=== PATIENT | female | born 1945 | race Caucasian/White ===

== ENCOUNTER 2023-02-17 10:01 | Emergency (ER) | payer MEDICARE, SELFPAY ==
[2023-02-17 10:12] VITALS: BP 167/66; PULSE 88; RESP 20; TEMP 36.9; O2SAT 99; BMI 38.2
--- NOTE | 2023-02-17 10:25 | CT_ITS ---
FINAL REPORT CLINICAL HISTORY: 25 lb wt loss, epigastric pn, n/v FINDINGS: Axial images were obtained from the lung apex to the mid abdomen by computed tomography after the administration of IV contrast. Coronal reformatted images were obtained. This study was performed with techniques to keep radiation doses as low as reasonably achievable, (ALARA). Individualized dose reduction techniques using automated exposure control or adjustment of mA and/or kV according to the patient's size were employed. There is no axillary adenopathy. There is no hilar or mediastinal adenopathy. Heart size is normal. There is no pericardial or pleural effusion. There is scarring in the lung bases. No suspicious infiltrate or nodule is identified. IMPRESSION: No suspicious infiltrate or mass. Reviewed, Interpreted and Dictated by Leandro Bey MD Transcribed by Nahid Hill Authenticated and [facility]
--- NOTE | 2023-02-17 10:25 | CT_ITS ---
FINAL REPORT TECHNIQUE: Postcontrast axial images through the abdomen and pelvis were performed. This study was performed with techniques to keep radiation doses as low as reasonably achievable, (ALARA). Individualized dose reduction techniques using automated exposure control or adjustment of mA and/or kV according to the patient's size were employed. CLINICAL HISTORY: 25 lb wt loss, epigastric pn, n/v FINDINGS: Abdomen: There are a multitude of large ill-defined heterogeneous hepatic masses. Masses measure up to 6.7 x 4.5 cm. Masses are seen throughout both lobes of the liver consistent with metastasis. The spleen is unremarkable. The adrenals are normal. The pancreas is unremarkable. The kidneys enhance appropriately. The aorta is normal in caliber. No free fluid or adenopathy is identified. There is abnormal asymmetric mucosal thickening of the ascending colon concerning for underlying mass. Findings are best seen on images 53-57 of series 4. Pelvis: The appendix is not identified. The urinary bladder is decompressed. No free fluid, free air, abscess or adenopathy is identified. IMPRESSION: Multitude of hepatic masses consistent with metastasis. Asymmetric mucosal thickening of the ascending colon concerning for primary neoplasm. Lower endoscopy is highly recommended. Reviewed, Interpreted and Dictated by Leandro Bey MD Transcribed by Nahid Hill Authenticated and [facility]
--- NOTE | 2023-02-17 10:27 | [facility].EDGENADL ---
Discharge Plan Disposition Patient Disposition: Home, Self-Care Prescriptions Prescriptions: New ondansetron 4 mg tablet,disintegrating 4 mg PO Q6H PRN (Reason: nausea and vomiting) 5 Days Qty: 20 0RF Referrals Follow up/Referrals: Luis Matos [Primary Care Provider] - See instructions Activity Restrictions/Add. Instructions Additional Instructions/Restrictions: Please follow-up your primary care doctor with a GI doctor who we made an appointment with today return to the emergency department with any worsening symptoms. There were multiple liver lesions found on your CAT scan and concern in your ascending colon for possible primary colon cancer that is metastatic to the liver. You will need a tissue biopsy to confirm the diagnosis and treatment plan. Clinical Impressions Clinical Impression: Nausea & vomiting, Unintentional weight loss, Night sweats, Cancer, metastatic to liver Discharge ED Provider: Laura Sharif General Adult HPI General Chief complaint: Weakness Stated complaint: vomiting X 2 weeks, can't eat,weak Time Seen by Provider: 02/17/23 10:09 Mode of Arrival: Ambulatory Source of Information: Patient Limitations: No Limitations Description of Symptoms (Recalled from ER Triage Doc. by RN): pt to ed c/o decreased appetite, generalized weakness and vomiting. pt denies urinary symptoms. pt reports mild chills. History of Present Illness HPI narrative: Patient is a 77-year-old female with a history of 5 months of unintentional weight loss nausea and vomiting that is been intermittent and now 1 to 2 months of night sweats. She has not had a colonoscopy in the past denies any hematochezia or melena. Denies any urinary symptoms no frequency urgency dysuria etc. Denies any vaginal bleeding vaginal discharge. Denies any respiratory symptoms. States she is able to swallow but that everything that she eats over the last several months she just throws up. She has not had any significant fevers. She states she does not go to the doctor regularly. She has an aversion to healthcare systems because her 9 years ago after being admitted for what she thought was a routine procedure. Therefore she is very hesitant to come to the hospital. She has had some mild epigastric and periumbilical abdominal discomfort nothing has been severe. Related Data Previous Rx's Medication Instructions Recorded ondansetron 4 mg disintegrating 4 mg PO Q6H PRN nausea and 02/17/23 tablet vomiting 5 days #20 tabs Allergies Allergy/AdvReac Type Severity Reaction Status Date / Time tetracycline Allergy Verified 02/17/23 10:37 [facility] Disclaimer: The information contained in this section may have been updated after the patient was seen, as this information can be updated by other users. Social History Smoking Status: Never smoker alcohol intake: never current occupational status: other Travel in the last 8 weeks: None ROS Obtained: Yes All systems reviewed & no additional complaints except as documented Physical Exam General General appearance: alert and in no apparent distress Respiratory Respiratory exam: Present normal lung sounds bilaterally; Absent respiratory distress or wheezes Cardiovascular Cardiovascular exam: Present regular rate and normal rhythm; Absent tachycardia Abdominal Exam Abdominal exam: Present soft and tenderness (Epigastric and periumbilical with deep palpation no rebound or guarding no masses felt) Neurological Exam Neurological exam: Present alert Medical Decision Making [place] Inquiry Pt receiving controlled substance: No Vital Signs: 02/17/23 10:12 Temperature 98.5 F Temperature Source Oral Pulse Rate [Left Radial] 88 Respiratory Rate 20 Blood Pressure [Right Arm] 167/66 H Blood Pressure Mean [Right Arm] 99 02 Sat by Pulse Oximetry 99 Oxygen Delivery Method Room Air Lab Data Lab results reviewed: Yes I reviewed the patient's lab results.
[2023-02-17 10:32] LABS: Microscopic, Urine URINE MICROSCOPIC (MICROSCOPIC)
[2023-02-17 10:34] LABS: Blood, Urine TRACE-I (Negative); Color,Urine YELLOW (Yellow); Glucose,Urine (UA) Negative (Negative); Ketones,Urine TRACE (Negative); Leukocyte Esterase,Urine 1+ (Negative); Nitrate,Urine POSITIVE (Negative); Protein,Urine 1+ (Negative); Specific Gravity, Urine 1.025 (1.005-1.030); Urobilinogen,Urine >=8.0 EU/dl (0.2)
[2023-02-17 10:37] LABS: Bilirubin,Urine 1+ (Negative)
[2023-02-17 10:40] LABS: Appearance,Urine Slightly Cloudy (Clear)
--- NOTE | 2023-02-17 10:53 | ECG_ITS ---
APPROVED REPORT Exam: Resting ECG HR:68 bpm ECG Measurements Heart Rate 68 AXES AL 177 P 79 QRSd 107 QRS 15 QT 382 T 33 QTc 400 Conclusion SINUS RHYTHM LOW QRS VOLTAGE IN PRECORDIAL LEADS [QRS DEFLECTION < 1.0 mV IN CHEST LEADS] BORDERLINE ECG UNCONFIRMED REPORT Electronically signed by : Rakesh Gabriel MD 02/17/2023 19:56:27
[2023-02-17 10:58] LABS: Coronavirus 19, PCR Not Detected (NotDetected); Influenza A, PCR Not Detected (NotDetected); Influenza B, PCR Not Detected (NotDetected)
[2023-02-17 11:01] LABS: Chloride 102 mmol/L (98-107)
[2023-02-17 11:02] LABS: Potassium 3.2 mmoL/L (3.5-5.1); Sodium 136 mmol/L (136-145)
[2023-02-17 11:03] LABS: Bacteria,Urine 4+ /lpf; RBC,Urine Occasional #/hpf (0-3); WBC,Urine TNTC #/hpf (0-3)
[2023-02-17 11:04] LABS: Alanine Aminotransferase 20 U/L (12-78); Anion Gap 11.2 mEq/L (5-15); Aspartate Amino Transferase 46 U/L (14-36); Blood Urea Nitrogen 12 mg/dl (7-17); Carbon Dioxide 26 mmol/L (22.0-30.0); Creatinine Clearance Estimated 75 mL/min (50-200); Estimated Glomerular Filt Rate 70 ml/min (>60); GFR (African American) 85 ML/MIN (>60)
[2023-02-17 11:05] LABS: Albumin Level 3.4 g/dl (3.5-5.0); Alkaline Phosphatase 157 U/L (38-126); Bilirubin,Total 1.2 mg/dl (0.2-1.3); Calcium 8.4 mg/dl (8.4-10.2); Globulin 3.3 g/dL (1.3-3.2); Glucose 142 mg/dl (74-100); Lactate Dehydrogenase > 1000 U/L (313-618); Magnesium 1.9 mg/dl (1.6-2.3); Phosphorous 3.4 mg/dl (2.5-4.5); Total Protein,Serum 6.7 g/dl (6.3-8.2); Uric Acid 4.9 mg/dl (2.5-6.2)
[2023-02-17 11:25] LABS: Troponin I < 0.01 ng/ml (0.00-0.034)
[2023-02-17 11:31] LABS: Basophils % 0.1 % (0.1-2.0); Eosinophils # 0.2 K/mm3 (0.0-0.4); Eosinophils % 1.9 % (0.1-12.0); Hematocrit 26.7 % (37.0-47.0); Lymphocytes # 0.9 K/mm3 (0.7-4.5); Lymphocytes % 9.7 % (10-50); Mean Corpuscular HGB Conc 29.8 g/dL (31.8-35.4); Mean Corpuscular Hemoglobin 19.1 pg (27.0-31.2); Monocytes # 0.8 K/mm3 (0.1-1.0); Monocytes % 7.9 % (1.7-9.3); Neutrophils # 7.8 K/mm3 (1.8-7.8); Neutrophils % 80.3 % (37.0-80.0); Platelet Count 515 K/mm3 (142-424); Red Blood Count 4.17 M/mm3 (4.20-5.40); Red Cell Distribution Width 17.9 % (11.5-17.5); White Blood Count 9.7 K/mm3 (4.8-10.8)
[2023-02-17 11:36] LABS: Thyroid Stimulating Hormone 3.06 uIU/mL (0.465-4.68)
--- NOTE | 2023-02-17 13:41 | PC.NURSE ---
Dr. Sharif at [facility]
[2023-02-17 14:25] VITALS: BP 161/84; PULSE 84; RESP 20; TEMP 36.9; O2SAT 99
--- NOTE | 2023-02-20 09:04 | PC.NURSE ---
fu with pt per MD Sharif about urine culture, Pt denies any urinary symptoms, states yesterday she felt good but today she feels weak but her fu with the doctor yesterday to do her colonoscopy said that her hemoglobin was 8 so he thought it was due to her anemia, denies any drainage, itching, burning or other urinary symptoms, states at this time there is no further interventions at this time due and it is believed that culture was colonization vs infection. Pt is encouraged that if anything changes to fu with primary care doctor
== END 2023-02-17 14:26 | disposition home or self-care (01) ==
LOC: ER 10:52
PROVIDERS: Emergency Provider Student in an Organized Health Care Education/Training Program; PCP Internal Medicine Cardiovascular Disease
DX: R11.10 Vomiting, unspecified (principal); R10.33 Periumbilical pain; R53.1 Weakness; R63.0 Anorexia; C78.7 Secondary malignant neoplasm of liver and intrahepatic bile duct
CPT/HCPCS: 71260; 74177; 80053; 81001; 83615; 83735; 84100; 84443; 84484; 84550; 85025; 87086; 87088; 87186; 87636; 93005; 96361; 96374; 99285; J2405; Q9967

== ENCOUNTER 2024-06-23 10:58 | Emergency (ER) | payer MEDICARE, SELFPAY ==
[2024-06-23] VITALS (8 sets, daily range): BP systolic 126–193; BP diastolic 74–104; PULSE 68–79; RESP 12–23; TEMP 36.6–36.8; O2SAT 96–100; BMI 36.8
--- NOTE | 2024-06-23 10:52 | ECG_ITS ---
APPROVED REPORT Exam: Resting ECG HR:72 bpm ECG Measurements Heart Rate 72 AXES LA 168 P 79 QRSd 94 QRS 11 QT 376 T 47 QTc 400 Conclusion SINUS RHYTHM WITH OCCASIONAL VENTRICULAR PREMATURE COMPLEXES BORDERLINE ECG No STEMI Electronically signed by : JIMY SINCLAIR, 06/26/2024 06:46:41
--- NOTE | 2024-06-23 11:00 | HMH.EDGENADL ---
Discharge Plan Disposition Patient Disposition: Home, Self-Care Condition: Good Prescriptions Prescriptions: No Action ondansetron 4 mg tablet,disintegrating 4 mg PO Q6H PRN (Reason: nausea and vomiting) 5 Days Qty: 20 0RF Referrals Follow up/Referrals: Elie Scott [Primary Care Provider] - See instructions Sriram Vasquez MD [Staff Physician] - See instructions Activity Restrictions/Add. Instructions Additional Instructions/Restrictions: As we discussed please come to cardiology clinic when they open tomorrow. Also as we discussed do not take your Coumadin until Thursday and then start taking only the 2.5 Thursday and Thursday. The INR clinic will contact you on Thursday to establish the next plan. Return to the ER if you have any worsening signs or symptoms as needed. Clinical Impressions Clinical Impression: Supratherapeutic INR Acute exacerbation of CHF (congestive heart failure) Qualifiers: Heart failure type: unspecified Qualified Code(s): I50.9 - Heart failure, unspecified Print Language Print Language: Kyrgyz Discharge ED Provider: Elmer Parada General Adult HPI <Daljit Issa MD - Last Filed: 06/23/24 11:00> General Chief complaint: Shortness of Breath/Dyspnea Stated complaint: SOA Time Seen by Provider: 06/23/24 10:59 History of Present Illness HPI narrative: Please note that above description of symptoms, in this electronic medical record under categorization of recalled from ER triage doctor by RN are reflective of an initial nursing assessment, however, is not reflective of my full history and physical exam that was personally taken and clarified. Consequentially, this preceding description of symptoms, which may include the patient's categorized chief complaint in the EMR, do not reflect my personal clinical impression, and the ultimate description of history of present illness and patient stated complaints should be deferred to this section of the note. Unless stated otherwise or congruent with this section of the note, additional signs, symptoms, or incongruence should be interpreted as inaccurate with my clinical impression. Related Data Previous Rx's ?Medication ?Instructions ?Recorded ondansetron 4 mg disintegrating 4 mg PO Q6H PRN nausea and 02/17/23 tablet vomiting 5 days #20 tabs Allergies Allergy/AdvReac Type Severity Reaction Status Date / Time tetracycline Allergy Verified 02/17/23 10:37 <GREGORY Pike - Last Filed: 06/23/24 22:33> History of Present Illness HPI narrative: Patient presents for evaluation of shortness of breath and chest pain. Patient has a past medical history of cancer currently undergoing treatment for metastatic liver cancer. She recently had admission in [facility] which she was noted to be uroseptic but also in A-fib RVR. She was discharged with Coumadin which she has been taking and has been home for about a week. She states that she began feeling significantly short of breath with back pain starting today. She denies any fever chills hemoptysis hematochezia melena nausea vomiting diarrhea. Additionally patient states that she took a water pill that she had from previous but is not currently prescribed that. Reports that she has been taking 7 and half milligrams of Coumadin daily at the request of her PCP. Please note that above description of symptoms, in this electronic medical record under categorization of recalled from ER triage doctor by RN are reflective of an initial nursing assessment, however, is not reflective of my full history and physical exam that was personally taken and clarified. Consequentially, this preceding description of symptoms, which may include the patient's categorized chief complaint in the EMR, do not reflect my personal clinical impression, and the ultimate description of history of present illness and patient stated complaints should be deferred to this section of the note. Unless stated otherwise or congruent with this section of the note, additional signs, symptoms, or incongruence should be interpreted as inaccurate with my clinical impression. [facility] <Daljit Issa MD - Last Filed: 06/23/24 11:00> [facility] Disclaimer: The information contained in this section may have been updated after the patient was seen, as this information can be updated by other users. Social History (Updated 02/17/23 @ 13:46 by Laura Sharif MD) Smoking Status: Never smoker alcohol intake: never current occupational status: other Travel in the last 8 weeks: None Have you lived/traveled outside [place] in past 30 days?: No Contact w/someone who lives/traveled outside US past 30 days?: No Exposure to someone with infectious disease in past 14 days?: No Do you have a fever (greater than 100.4 F or 38 C)?: No Have you tested positive for COVID-19: No Exposed to someone with COVID-19 in past 14 days?: No Do you have a sore throat?: No Do you have a cough?: No Do you have any weakness?: Yes Do you have any diarrhea?: No Are you experiencing any unusual bleeding?: No Do you have any muscle aches/pain?: No Do you have any abdominal pain?: No Are you experiencing loss of taste or smell?: No <Daljit Issa MD - Last Filed: 06/23/24 11:00> ROS Obtained: Yes other As per HPI <GREGORY Pike - Last Filed: 06/23/24 22:33> ROS Obtained: Yes Systems reviewed as appropriate & no additional complaints except as documented Physical Exam <Daljit Issa MD - Last Filed: 06/23/24 11:00> General General appearance: alert and in no apparent distress Head Head exam: atraumatic and normocephalic Eye Eye exam: Present normal appearance Neck Neck exam: Present normal inspection Chest Chest inspection: Present normal inspection and symmetric chest wall rise Respiratory Respiratory exam: Present normal lung sounds bilaterally; Absent respiratory distress Cardiovascular Cardiovascular exam: Present regular rate and normal rhythm Abdominal Exam Abdominal exam: Present soft Neurological Exam Neurological exam: Present alert and oriented X3 Psychiatric Psychiatric exam: Present normal affect and normal mood Skin Skin exam: Present warm and dry <GREGORY Pike - Last Filed: 06/23/24 22:33> General General appearance: alert Respiratory Respiratory exam: Present normal lung sounds bilaterally (End expiratory wheezes) Neurological Exam Neurological exam: Present alert and oriented X3 Medical Decision Making <Daljit Issa MD - Last Filed: 06/23/24 11:00> Medical Records Medical records reviewed: Yes I reviewed the patient's medical records. Screening: Per USPSTF and CDC recommendations, given the prevalence of disease in our region, it is our hospital?s policy to screen for HIV and viral Hepatitis for all patients aged 18 and over and those with ongoing risk factors. [place] Inquiry Pt receiving controlled substance: No Vital Signs: 06/23/24 10:55 06/23/24 11:00 06/23/24 12:36 Temperature 97.8 F Temperature Source Oral Pulse Rate 68 68 Pulse Rate [Right] 72 Respiratory Rate 20 12 23 Blood Pressure 193/104 H 132/78 Blood Pressure [Right Arm] 193/104 H Blood Pressure Mean [Right Arm] 133 Blood Pressure Source Blood Pressure Position 02 Sat by Pulse Oximetry 98 96 100 Oxygen Delivery Method Room Air Room Air Room Air 06/23/24 13:00 06/23/24 13:30 06/23/24 14:00 Temperature Temperature Source Pulse Rate 73 76 77 Pulse Rate [Right] Respiratory Rate Blood Pressure 126/94 H 152/74 H Blood Pressure [Right Arm] Blood Pressure Mean [Right Arm] Blood Pressure Source Blood Pressure Position 02 Sat by Pulse Oximetry 96 98 100 Oxygen Delivery Method Room Air Room Air 06/23/24 14:30 06/23/24 17:05 Temperature 98.2 F Temperature Source Oral Pulse Rate 79 74 Pulse Rate [Right] Respiratory Rate 16 Blood Pressure 154/86 H Blood Pressure [Right Arm] Blood Pressure Mean [Right Arm] Blood Pressure Source Automatic Cuff Blood Pressure Position Sitting 02 Sat by Pulse Oximetry 97 Oxygen Delivery Method Room Air Room Air Lab Data Lab Results 06/23/24 11:15: WBC 10.8, RBC 3.83 L, Hgb 11.4 L, Hct 34.7 L, MCV 90.6, MCH 29.8, MCHC 32.9, RDW 16.3, Plt Count 316, MPV 9.3, Neut % (Auto) 75.0, Lymph % (Auto) 12.1, [place] % (Auto) 7.1, Eos % (Auto) 4.9, Baso % (Auto) 0.6, Neut # (Auto) 8.1 H, Lymph # (Auto) 1.3, [place] # (Auto) 0.8, Eos # (Auto) 0.5 H, Baso # (Auto) 0.1, PT > 90.0 H, INR > 8.00 H, D-Dimer 1.53 H, Sodium 138, Potassium 3.8, Chloride 99, Carbon Dioxide 31 H, Anion Gap 11.8, BUN 12, Creatinine 0.70, Estimated Creat Clear 74, Estimated GFR 81, Est GFR ( Amer) 98, Glucose 115 H, Calcium 9.4, Magnesium 2.0, Total Bilirubin 0.6, AST 51 H, ALT 24, Alkaline Phosphatase 224 H, Troponin I < 0.01, NT-Pro-B Natriuret Pep 4490 H 06/23/24 11:15: NT-Pro-B Natriuret Pep 4470 H, Total Protein 7.1, Albumin 3.8, Globulin 3.3 H, Albumin/Globulin Ratio 1.2, Procalcitonin 0.176, SARS-CoV-2 (PCR) Not detected 06/23/24 11:15: SARS-CoV-2 (PCR) Not detected, HCV Ab TREV w/Rflx PCR Qn Negative, HIV Ag/Ab Combo Qual Negative, Influenza Type A (PCR) Not detected, Influenza A Untype (PCR) Not detected, Influenza Type B (PCR) Not detected 06/23/24 11:15: Influenza Type B (PCR) Not detected, RSV (PCR) Not detected, Rhinovirus (PCR) Not detected 06/23/24 11:15 06/23/24 11:15 Orders (Tests/Meds): ED MEDICATIONS Discontinued Medications Generic Name Dose Route Start Last Admin Trade Name Freq PRN Reason Stop Dose Admin Furosemide 80 mg 06/23/24 12:54 06/23/24 13:09 Furosemide 40mg/4ml Vial IV 06/23/24 12:55 80 mg ONCE ONE Administration Heparin Sodium (Porcine) 300 unit 06/23/24 16:56 06/23/24 17:04 Heparin Lock Flush 500 Units/5ml Syr IV 06/23/24 16:57 5 ml ONCE ONE Administration Hydromorphone HCl 0.5 mg 06/23/24 16:44 06/23/24 17:03 Hydromorphone 2mg/Ml Syringe IV 06/23/24 16:45 0.5 mg ONCE ONE Administration ORDERS Category Date Time Status XR chest 2V Stat Exams 06/23/24 11:04 Completed BNP [NT Pro Brain Natriuretic Pep.] Stat Lab 06/23/24 11:15 Completed BNP [NT Pro Brain Natriuretic Pep.] Stat Lab 06/23/24 11:15 Completed CBC w/Auto Diff [Complete Blood Count Auto Diff] Stat Lab 06/23/24 11:15 Completed CMP [Comprehensive Metabolic Panel] Stat Lab 06/23/24 11:15 Completed D-Dimer Stat Lab 06/23/24 11:15 Completed HIV Combo Stat Lab 06/23/24 11:15 Completed Hepatitis C Ab Qual. W/ RFX Stat Lab 06/23/24 11:15 Completed INR [Prothrombin Time INR] Stat Lab 06/23/24 11:15 Completed Magnesium Stat Lab 06/23/24 11:15 Completed Mini Respiratory Panel Stat Lab 06/23/24 11:15 Completed Procalcitonin Stat Lab 06/23/24 11:15 Completed Rapid PCR Covid and Flu A/B Stat Lab 06/23/24 11:15 Completed Troponin I Q3H Lab 06/23/24 11:15 Completed CA echo doppler complete Stat Y 06/23/24 12:56 Completed Medical Decision Narrative: Patient with history and exam per above presenting for evaluation of Diagnoses considered include ED workup and treatment included: Labs were independently interpreted by me, significant for Imaging was independently visualized and interpreted by me, significant for Please refer to radiology report for full details. My clinical impression at this time is most consistent with I discussed my clinical impression with patient and answered all questions. At this time, the evidence for any other entities in the differential is insufficient to warrant any further testing or ED observation. This was explained to the patient. The patient was advised that persistent or worsening symptoms require further evaluation. <Elmer Parada MD - Last Filed: 06/23/24 23:07> Vital Signs: 06/23/24 10:55 06/23/24 11:00 06/23/24 12:36 Temperature 97.8 F Temperature Source Oral Pulse Rate 68 68 Pulse Rate [Right] 72 Respiratory Rate 20 12 23 Blood Pressure 193/104 H 132/78 Blood Pressure [Right Arm] 193/104 H Blood Pressure Mean [Right Arm] 133 Blood Pressure Source Blood Pressure Position 02 Sat by Pulse Oximetry 98 96 100 Oxygen Delivery Method Room Air Room Air Room Air 06/23/24 13:00 06/23/24 13:30 06/23/24 14:00 Temperature Temperature Source Pulse Rate 73 76 77 Pulse Rate [Right] Respiratory Rate Blood Pressure 126/94 H 152/74 H Blood Pressure [Right Arm] Blood Pressure Mean [Right Arm] Blood Pressure Source Blood Pressure Position 02 Sat by Pulse Oximetry 96 98 100 Oxygen Delivery Method Room Air Room Air 06/23/24 14:30 06/23/24 17:05 Temperature 98.2 F Temperature Source Oral Pulse Rate 79 74 Pulse Rate [Right] Respiratory Rate 16 Blood Pressure 154/86 H Blood Pressure [Right Arm] Blood Pressure Mean [Right Arm] Blood Pressure Source Automatic Cuff Blood Pressure Position Sitting 02 Sat by Pulse Oximetry 97 Oxygen Delivery Method Room Air Room Air Lab Data Lab Results 06/23/24 11:15: WBC 10.8, RBC 3.83 L, Hgb 11.4 L, Hct 34.7 L, MCV 90.6, MCH 29.8, MCHC 32.9, RDW 16.3, Plt Count 316, MPV 9.3, Neut % (Auto) 75.0, Lymph % (Auto) 12.1, [place] % (Auto) 7.1, Eos % (Auto) 4.9, Baso % (Auto) 0.6, Neut # (Auto) 8.1 H, Lymph # (Auto) 1.3, [place] # (Auto) 0.8, Eos # (Auto) 0.5 H, Baso # (Auto) 0.1, PT > 90.0 H, INR > 8.00 H, D-Dimer 1.53 H, Sodium 138, Potassium 3.8, Chloride 99, Carbon Dioxide 31 H, Anion Gap 11.8, BUN 12, Creatinine 0.70, Estimated Creat Clear 74, Estimated GFR 81, Est GFR ( Amer) 98, Glucose 115 H, Calcium 9.4, Magnesium 2.0, Total Bilirubin 0.6, AST 51 H, ALT 24, Alkaline Phosphatase 224 H, Troponin I < 0.01, NT-Pro-B Natriuret Pep 4490 H 06/23/24 11:15: NT-Pro-B Natriuret Pep 4470 H, Total Protein 7.1, Albumin 3.8, Globulin 3.3 H, Albumin/Globulin Ratio 1.2, Procalcitonin 0.176, SARS-CoV-2 (PCR) Not detected 06/23/24 11:15: SARS-CoV-2 (PCR) Not detected, HCV Ab TREV w/Rflx PCR Qn Negative, HIV Ag/Ab Combo Qual Negative, Influenza Type A (PCR) Not detected, Influenza A Untype (PCR) Not detected, Influenza Type B (PCR) Not detected 06/23/24 11:15: Influenza Type B (PCR) Not detected, RSV (PCR) Not detected, Rhinovirus (PCR) Not detected Orders (Tests/Meds): ED MEDICATIONS Discontinued Medications Generic Name Dose Route Start Last Admin Trade Name Freq PRN Reason Stop Dose Admin Furosemide 80 mg 06/23/24 12:54 06/23/24 13:09 Furosemide 40mg/4ml Vial IV 06/23/24 12:55 80 mg ONCE ONE Administration Heparin Sodium (Porcine) 300 unit 06/23/24 16:56 06/23/24 17:04 Heparin Lock Flush 500 Units/5ml Syr IV 06/23/24 16:57 5 ml ONCE ONE Administration Hydromorphone HCl 0.5 mg 06/23/24 16:44 06/23/24 17:03 Hydromorphone 2mg/Ml Syringe IV 06/23/24 16:45 0.5 mg ONCE ONE Administration ORDERS Category Date Time Status XR chest 2V Stat Exams 06/23/24 11:04 Completed BNP [NT Pro Brain Natriuretic Pep.] Stat Lab 06/23/24 11:15 Completed BNP [NT Pro Brain Natriuretic Pep.] Stat Lab 06/23/24 11:15 Completed CBC w/Auto Diff [Complete Blood Count Auto Diff] Stat Lab 06/23/24 11:15 Completed CMP [Comprehensive Metabolic Panel] Stat Lab 06/23/24 11:15 Completed D-Dimer Stat Lab 06/23/24 11:15 Completed HIV Combo Stat Lab 06/23/24 11:15 Completed Hepatitis C Ab Qual. W/ RFX Stat Lab 06/23/24 11:15 Completed INR [Prothrombin Time INR] Stat Lab 06/23/24 11:15 Completed Magnesium Stat Lab 06/23/24 11:15 Completed Mini Respiratory Panel Stat Lab 06/23/24 11:15 Completed Procalcitonin Stat Lab 06/23/24 11:15 Completed Rapid PCR Covid and Flu A/B Stat Lab 06/23/24 11:15 Completed Troponin I Q3H Lab 06/23/24 11:15 Completed CA echo doppler complete Stat Y 06/23/24 12:56 Completed HEART Score HEART Score: 5 Medical Decision Narrative: In summary patient is a 78-year-old female who presents to the emergency department for evaluation of dyspnea and chest pain. Patient is initially hypertensive at 193/104 with a pulse of 72 with normal sinus rhythm on bedside monitor breathing 20 times a minute satting at 98% on room air upon arrival, afebrile. Physical exam is remarkable for slight end expiratory wheezes in all 4 nguyen with no accessory muscle use. Heart sounds are normal patient is normal sinus rhythm on bedside monitor patient has no dependent edema noted. Abdomen is soft without tenderness rebound or guarding or rigidity. Normal bowel sounds.. Differential diagnosis includes ACS versus PE versus pneumonia versus heart failure etc. Initial workup will be conducted with hematologic labs respiratory panel chest x-ray and. Initial interventions include DuoNeb Decadron and Lasix. Initial workup reviewed by me shows a white count of 10.8 hemoglobin hematocrit 11.4 and 34.7 respectively with no shift, INR is greater than 8 D-dimer is 1.53 and given that PE unlikely as she is supratherapeutic, NT proBNP is elevated at 4470 with no known baseline, the remainder of her hematologic labs are nonactionable including a troponin less than 0.01. Respiratory panel is negative for all organisms tested and my informal interpretation of her chest x-ray shows pulmonary edema prior to radiology read. Upon repeat evaluation patient reports significant subjective improvement including decreased work of breathing no chest pain no shortness of breath. Given that her chest pain has been going on for more than 8 hours single troponin was done. Regarding her supratherapeutic and INR we have contacted the Coumadin clinic and she will hold her Coumadin for 48 hours and restart at 2.5 on Thursday and Thursday and will be followed by the Coumadin clinic directly. Coumadin clinic given her contact 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 Patient given strict return precautions. Patient no evidence of bleeding or other abnormalities including petechiae.. Given this patient is appropriate for discharge with strict return precautions. I independently examined and interviewed patient. I was consulted by the KYLIE, and we discussed the complexity of the problems being addressed. I approved the treatment and management plan for this patient's care in the Emergency Department, thus performing a substantive portion of the medical decision making. I also spoke to pharmacist regarding patient's elevated INR. Recommended holding for 48 hours, 2.5 mg the next 2 days, then following up on Thursday with cardiology as well as with pharmacy for further Coumadin management. This was relayed to patient. Because patient at baseline without signs or symptoms of clinical decompensation, deemed appropriate for discharge. Results were relayed to patient who voiced understanding and were agreeable to outpatient management and follow up. I discussed my clinical impression with patient and answered all questions. At this time, the evidence for any other entities in the differential is insufficient to warrant any further testing or ED observation. This was explained as well. Advisory was given that persistent or worsening symptoms require further evaluation. I confirmed the understanding of this discussion. Elmer Parada MD <GREGORY Pike - Last Filed: 06/23/24 22:33> Vital Signs: 06/23/24 10:55 06/23/24 11:00 06/23/24 12:36 Temperature 97.8 F Temperature Source Oral Pulse Rate 68 68 Pulse Rate [Right] 72 Respiratory Rate 20 12 23 Blood Pressure 193/104 H 132/78 Blood Pressure [Right Arm] 193/104 H Blood Pressure Mean [Right Arm] 133 Blood Pressure Source Blood Pressure Position 02 Sat by Pulse Oximetry 98 96 100 Oxygen Delivery Method Room Air Room Air Room Air 06/23/24 13:00 06/23/24 13:30 06/23/24 14:00 Temperature Temperature Source Pulse Rate 73 76 77 Pulse Rate [Right] Respiratory Rate Blood Pressure 126/94 H 152/74 H Blood Pressure [Right Arm] Blood Pressure Mean [Right Arm] Blood Pressure Source Blood Pressure Position 02 Sat by Pulse Oximetry 96 98 100 Oxygen Delivery Method Room Air Room Air 06/23/24 14:30 06/23/24 17:05 Temperature 98.2 F Temperature Source Oral Pulse Rate 79 74 Pulse Rate [Right] Respiratory Rate 16 Blood Pressure 154/86 H Blood Pressure [Right Arm] Blood Pressure Mean [Right Arm] Blood Pressure Source Automatic Cuff Blood Pressure Position Sitting 02 Sat by Pulse Oximetry 97 Oxygen Delivery Method Room Air Room Air Lab Data Lab results reviewed: Yes I reviewed the patient's lab results. Lab Results 06/23/24 11:15: WBC 10.8, RBC 3.83 L, Hgb 11.4 L, Hct 34.7 L, MCV 90.6, MCH 29.8, MCHC 32.9, RDW 16.3, Plt Count 316, MPV 9.3, Neut % (Auto) 75.0, Lymph % (Auto) 12.1, [place] % (Auto) 7.1, Eos % (Auto) 4.9, Baso % (Auto) 0.6, Neut # (Auto) 8.1 H, Lymph # (Auto) 1.3, [place] # (Auto) 0.8, Eos # (Auto) 0.5 H, Baso # (Auto) 0.1, PT > 90.0 H, INR > 8.00 H, D-Dimer 1.53 H, Sodium 138, Potassium 3.8, Chloride 99, Carbon Dioxide 31 H, Anion Gap 11.8, BUN 12, Creatinine 0.70, Estimated Creat Clear 74, Estimated GFR 81, Est GFR ( Amer) 98, Glucose 115 H, Calcium 9.4, Magnesium 2.0, Total Bilirubin 0.6, AST 51 H, ALT 24, Alkaline Phosphatase 224 H, Troponin I < 0.01, NT-Pro-B Natriuret Pep 4490 H 06/23/24 11:15: NT-Pro-B Natriuret Pep 4470 H, Total Protein 7.1, Albumin 3.8, Globulin 3.3 H, Albumin/Globulin Ratio 1.2, Procalcitonin 0.176, SARS-CoV-2 (PCR) Not detected 06/23/24 11:15: SARS-CoV-2 (PCR) Not detected, HCV Ab TREV w/Rflx PCR Qn Negative, HIV Ag/Ab Combo Qual Negative, Influenza Type A (PCR) Not detected, Influenza A Untype (PCR) Not detected, Influenza Type B (PCR) Not detected 06/23/24 11:15: Influenza Type B (PCR) Not detected, RSV (PCR) Not detected, Rhinovirus (PCR) Not detected Orders (Tests/Meds): ED MEDICATIONS Discontinued Medications Generic Name Dose Route Start Last Admin Trade Name Freq PRN Reason Stop Dose Admin Furosemide 80 mg 06/23/24 12:54 06/23/24 13:09 Furosemide 40mg/4ml Vial IV 06/23/24 12:55 80 mg ONCE ONE Administration Heparin Sodium (Porcine) 300 unit 06/23/24 16:56 06/23/24 17:04 Heparin Lock Flush 500 Units/5ml Syr IV 06/23/24 16:57 5 ml ONCE ONE Administration Hydromorphone HCl 0.5 mg 06/23/24 16:44 06/23/24 17:03 Hydromorphone 2mg/Ml Syringe IV 06/23/24 16:45 0.5 mg ONCE ONE Administration ORDERS Category Date Time Status XR chest 2V Stat Exams 06/23/24 11:04 Completed BNP [NT Pro Brain Natriuretic Pep.] Stat Lab 06/23/24 11:15 Completed BNP [NT Pro Brain Natriuretic Pep.] Stat Lab 06/23/24 11:15 Completed CBC w/Auto Diff [Complete Blood Count Auto Diff] Stat Lab 06/23/24 11:15 Completed CMP [Comprehensive Metabolic Panel] Stat Lab 06/23/24 11:15 Completed D-Dimer Stat Lab 06/23/24 11:15 Completed HIV Combo Stat Lab 06/23/24 11:15 Completed Hepatitis C Ab Qual. W/ RFX Stat Lab 06/23/24 11:15 Completed INR [Prothrombin Time INR] Stat Lab 06/23/24 11:15 Completed Magnesium Stat Lab 06/23/24 11:15 Completed Mini Respiratory Panel Stat Lab 06/23/24 11:15 Completed Procalcitonin Stat Lab 06/23/24 11:15 Completed Rapid PCR Covid and Flu A/B Stat Lab 06/23/24 11:15 Completed Troponin I Q3H Lab 06/23/24 11:15 Completed CA echo doppler complete Stat Y 06/23/24 12:56 Completed HEART Score History (anamnesis): Slightly suspicious ECG: Non-specific disturbance Age: >65 years Risk factors: Atherosclerosis history Troponin: </= normal limit HEART Score: 5 Medical Decision Narrative: In summary patient is a 78-year-old female who presents to the emergency department for evaluation of dyspnea and chest pain. Patient is initially hypertensive at 193/104 with a pulse of 72 with normal sinus rhythm on bedside monitor breathing 20 times a minute satting at 98% on room air upon arrival, afebrile. Physical exam is remarkable for slight end expiratory wheezes in all 4 nguyen with no accessory muscle use. Heart sounds are normal patient is normal sinus rhythm on bedside monitor patient has no dependent edema noted. Abdomen is soft without tenderness rebound or guarding or rigidity. Normal bowel sounds.. Differential diagnosis includes ACS versus PE versus pneumonia versus heart failure etc. Initial workup will be conducted with hematologic labs respiratory panel chest x-ray and. Initial interventions include DuoNeb Decadron and Lasix. Initial workup reviewed by me shows a white count of 10.8 hemoglobin hematocrit 11.4 and 34.7 respectively with no shift, INR is greater than 8 D-dimer is 1.53 and given that PE unlikely as she is supratherapeutic, NT proBNP is elevated at 4470 with no known baseline, the remainder of her hematologic labs are nonactionable including a troponin less than 0.01. Respiratory panel is negative for all organisms tested and my informal interpretation of her chest x-ray shows pulmonary edema prior to radiology read. Upon repeat evaluation patient reports significant subjective improvement including decreased work of breathing no chest pain no shortness of breath. Given that her chest pain has been going on for more than 8 hours single troponin was done. Regarding her supratherapeutic and INR we have contacted the Coumadin clinic and she will hold her Coumadin for 48 hours and restart at 2.5 on Thursday and Thursday and will be followed by the Coumadin clinic directly. Coumadin clinic given her contact 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 Patient given strict return precautions. Patient no evidence of bleeding or other abnormalities including petechiae.. Given this patient is appropriate for discharge with strict return precautions. Critical Care <Daljit Issa MD - Last Filed: 06/23/24 11:00> Critical Care Time Critical Care Time: No <GREGORY Pike - Last Filed: 06/23/24 22:33> Critical Care Time Critical Care Time: Yes Attestation: On 06/23/24, the high probability of a clinically significant, sudden or life threatening deterioration of the following system hematologic, required my full and direct attention, intervention and personal management. The time I documented below is in addition to time spent performing reported procedures but includes the following listed in this critical care notation. Total Time Total Critical Care Time: 35
--- NOTE | 2024-06-23 11:04 | XR_ITS ---
FINAL REPORT TECHNIQUE: Chest PA & Lateral CLINICAL HISTORY: Shortness of breath COMPARISON: None FINDINGS: 2 views of the chest were performed. The heart size is normal. Right chest port is present with the tip in the SVC. The mediastinum is within normal limits. There is no acute cardiopulmonary process. Mild chronic changes are seen in both lungs. There are no pleural effusions. There is no pneumothorax. The bony thorax appears intact. IMPRESSION: Chronic lung changes without acute cardiopulmonary process. Reviewed, Interpreted and Dictated by Leandro Bey MD Transcribed by Naila Maldonado Authenticated and [facility]
[2024-06-23 11:22] LABS: Coronavirus 19, PCR Not Detected (NotDetected); Influenza A, PCR Not Detected (NotDetected); Influenza B, PCR Not Detected (NotDetected)
[2024-06-23 11:25] LABS: Basophils # 0.1 K/mm3 (0-0.2); Basophils % 0.6 % (0.1-2.0); Eosinophils # 0.5 K/mm3 (0.0-0.4); Eosinophils % 4.9 % (0.1-12.0); Hematocrit 34.7 % (37.0-47.0); Hemoglobin 11.4 g/dL (12.2-16.2); Lymphocytes # 1.3 K/mm3 (0.7-4.5); Lymphocytes % 12.1 % (10-50); Mean Corpuscular HGB Conc 32.9 g/dL (31.8-35.4); Mean Corpuscular Hemoglobin 29.8 pg (27.0-31.2); Mean Corpuscular Volume 90.6 fl (81-99); Mean Platelet Volume 9.3 fl (7.4-10.4); Monocytes # 0.8 K/mm3 (0.1-1.0); Monocytes % 7.1 % (1.7-9.3); Neutrophils # 8.1 K/mm3 (1.8-7.8); Platelet Count 316 K/mm3 (142-424); Red Blood Count 3.83 M/mm3 (4.20-5.40); Red Cell Distribution Width 16.3 % (11.5-17.5); White Blood Count 10.8 K/mm3 (4.8-10.8)
[2024-06-23 11:30] LABS: Albumin Level 3.8 g/dl (3.5-5.0); Chloride 99 mmol/L (98-107)
[2024-06-23 11:31] LABS: Potassium 3.8 mmoL/L (3.5-5.1); Sodium 138 mmol/L (136-145)
[2024-06-23 11:33] LABS: Alanine Aminotransferase 24 U/L (12-78); Anion Gap 11.8 mEq/L (5-15); Aspartate Amino Transferase 51 U/L (14-36); Blood Urea Nitrogen 12 mg/dl (7-17); Carbon Dioxide 31 mmol/L (22.0-30.0); Creatinine Clearance Estimated 74 mL/min (50-200); Estimated Glomerular Filt Rate 81 ml/min (>60); GFR (African American) 98 ML/MIN (>60)
[2024-06-23 11:34] LABS: Albumin/Globulin Ratio 1.2 (1.1-1.8); Alkaline Phosphatase 224 U/L (38-126); Bilirubin,Total 0.6 mg/dl (0.2-1.3); Calcium 9.4 mg/dl (8.4-10.2); Globulin 3.3 g/dL (1.3-3.2); Glucose 115 mg/dl (74-100); Total Protein,Serum 7.1 g/dl (6.3-8.2)
[2024-06-23 11:43] LABS: NT Pro Brain Natriuretic Pep. 4490 pg/mL (0-450)
[2024-06-23 11:47] LABS: Troponin I < 0.01 ng/ml (0.00-0.034)
[2024-06-23 12:36] LABS: Hepatitis C Ab Qual. W/ RFX NEGATIVE (Negative)
--- NOTE | 2024-06-23 12:56 | CA_ITS ---
APPROVED REPORT EXAM: Comprehensive 2D, Doppler, and color-flow Echocardiogram Wallpaper Installer: EMIR Velez, RVS Ht: 5 ft 4 in Wt: 215lbs BSA: 2.02 BP: 126/98 mmHg Indications: SOA, Hx-Afib, Hx- pulmonary emboli, Liver Cancer currently on chemotherapy. Echo Enhancing Agent Comments: TDS due to patient body habitus. 2D Dimensions IVSd 1.07 cm LVEF (Visual) 71.80 % PWd 1.08 cm LA Volume 69.60 mL LVDd 4.89 cm LA Volume Index 33.60 mL/m2 (M/F) 16-34 LVDs 2.88 cm Left Atrium 4.54 cm M-Mode Dimensions LA Diam 3.71 cm (1.9-4.0) LVDd 5.66 cm (3.5-5.7) LVDs 3.96 cm (3.5-5.7) EF (Teich) 56.60% EPSs 0.62 cm FS 30.00% EDV (Teich) 157.50 mL TAPSE 1.48 (<1.7) ESV (Teich) 68.30 mL LV Diastology E Decel Time 293 (160-240 msec) E/A Ratio 0.74 MED A' 10.50 cm/s LAT A' 9.50 cm/s Aortic Valve TIA Index 1.20 cm2/m2 AoV Peak Sim. 155.0 (50-130 cm/s) AO Peak GR. 9.60 mmHg AO Mean GR. 4.80 (<5 mmHg) AO VTI 27.1 (18-25 cm) TIA (VTI) 2.48 (2.5-4.5 cm2) Mitral Valve MV A Velocity 79.0 (40-130 cm/s) E/A Ratio 0.74 Tricuspid Valve TR P. Velocity 18.00 cm/s Left Ventricle The left ventricle is normal size. There is increased LV wall thickness. The left ventricular systolic function is normal. The left ventricular ejection fraction is within the normal range. The septum is asynchronous. No regional wall motion abnormalities are noted. Diastolic function is indeterminate. LVEF is 60%. Right Ventricle The right ventricle is normal size. The right ventricular systolic function is normal. Atria Left atrium is mildly dilated. The right atrium size is normal. Color Doppler demonstrates possible presence of left to right interatrial shunt. Aortic Valve Aortic valve is mildly thickened. There is no aortic valvular stenosis. No aortic regurgitation is present. Mitral Valve The mitral valve is normal in structure. No evidence of mitral valve stenosis. Trace mitral regurgitation. Tricuspid Valve The tricuspid valve leaflets are thin and pliable. Trace tricuspid regurgitation. There is insufficient TR jet to estimate RVSP. Pulmonic Valve The pulmonary valve is normal in structure. Trace pulmonic regurgitation. Great Vessels The aortic root is normal in size. The ascending aorta is not well-visualized. IVC is normal in size and collapses >50% with inspiration. Pericardium There is no pericardial effusion. Other Information Study Quality: Fair Conclusion Normal biventricular systolic function. Mild LA dilation. No significant valvular stenosis or regurgitation. Color Doppler demonstrates possible presence of left to right interatrial shunt. Electronically signed by : Joslyn Vasquez MD 06/24/2024 09:02:09
[2024-06-23] MEDS: FUROSEMIDE 40MG/4ML VIAL 80 MG IV (13:09)
--- NOTE | 2024-06-23 13:21 | PC.NURSE ---
Spoke with CHRISTOS at [facility] for pts ECHO report to be faxed to us.
[2024-06-23 14:56] LABS: Coronavirus 19, PCR Not Detected (NotDetected); Human Rhinovirus Not Detected (NotDetected); Influenza A, PCR Not Detected (NotDetected); Influenza B, PCR Not Detected (NotDetected); Respiratory Syncytial Virus Not Detected (NotDetected)
[2024-06-23 15:18] LABS: NT Pro Brain Natriuretic Pep. 4470 pg/mL (0-450)
[2024-06-23 15:34] LABS: D-Dimer 1.53 ug/mL (0.0-0.5)
[2024-06-23 15:49] LABS: INR > 8.00 (0.9-1.1); Prothrombin Time > 90.0 seconds (10.1-12.5)
[2024-06-23 15:51] LABS: Procalcitonin 0.176 ng/mL (0.0-2.0)
[2024-06-23] MEDS: HYDROMORPHONE 2MG/ML SYRINGE 0.5 MG IV (17:03)
[2024-06-23 19:53] LABS: HIV Combo NEGATIVE (Negative)
== END 2024-06-23 17:07 | disposition home or self-care (01) ==
PROVIDERS: Emergency Medicine; Physician Assistant; Emergency Provider Emergency Medicine; PCP Pediatrics
DX: I50.9 Heart failure, unspecified (principal); R79.1 Abnormal coagulation profile; C78.7 Secondary malignant neoplasm of liver and intrahepatic bile duct; R06.02 Shortness of breath; R06.00 Dyspnea, unspecified; R07.9 Chest pain, unspecified; M54.9 Dorsalgia, unspecified
CPT/HCPCS: 71046; 80053; 83735; 83880; 84145; 84484; 85025; 85378; 85610; 86803; 87389; 87631; 87636; 93005; 93306; 96374; 96375; 99291; J1171; J1642; J1940

== ENCOUNTER 2024-06-24 10:53 | Outpatient (CLI) | payer MEDICARE, SELFPAY | END 2024-06-24 23:59 | disposition home or self-care (01) | LOC: RT 10:56 | PROVIDERS: Visit Provider Physician Assistant | DX: R00.2 Palpitations (principal); I48.0 Paroxysmal atrial fibrillation | CPT/HCPCS: 93270 ==

== ENCOUNTER 2024-06-29 09:45 | Outpatient (CLI) | payer MEDICARE, SELFPAY ==
[2024-06-29] MEDS: SODIUM CHLORIDE 0.9% 10ML SYR (RAD ONLY) 10 ML IV (11:51)
[2024-06-29] MEDS: GADOTERIDOL INJ 20ML SYRINGE 20 ML IV (11:51)
[2024-06-29] MEDS: 0.9% SODIUM CHLORIDE 20ML VIAL 20 ML IV (11:51)
[2024-06-29] MEDS: SODIUM CHLORIDE 0.9% 10ML FLUSH SYRINGE 10 ML IV (12:08)
== END 2024-06-29 12:10 | disposition home or self-care (01) ==
LOC: RAD 09:46 → INF 10:11
PROVIDERS: Visit Provider Physician Assistant
DX: I50.9 Heart failure, unspecified (principal); R00.2 Palpitations; I48.0 Paroxysmal atrial fibrillation; Q24.8 Other specified congenital malformations of heart
CPT/HCPCS: 75561; A9576; J1642

== ENCOUNTER 2024-07-01 12:13 | Outpatient (CLI) | payer MEDICARE, SELFPAY ==
[2024-07-01 12:48] LABS: PHA INR Fingerstick 1.8 (0.9-1.1)
== END 2024-07-01 13:08 ==
PROVIDERS: PCP Nurse Practitioner Family; Visit Provider Physician Assistant
DX: Z79.01 Long term (current) use of anticoagulants (principal); Z86.711 Personal history of pulmonary embolism
CPT/HCPCS: 85610; 99211; G0463

== ENCOUNTER 2024-08-17 12:59 | Outpatient (CLI) | payer MEDICARE, SELFPAY ==
[2024-08-17 13:46] LABS: PHA INR Fingerstick 4.6 (0.9-1.1)
--- NOTE | 2024-08-25 10:22 | P.CONPHA_ITS ---
Pharmacy Intervention Comments: INR WAS CALLED FROM [facility]. INR WAS 8.3 ON 08/25/24. PATIENT CURRENTLY GETTING IRINOTECAN, LEUCOVORIN, AND 5FU INFUSIONS. HAVING PATIENT HOLD UNTIL THURSDAY AND FOLLOW UP IN CLINIC. NO ISSUES WITH BLEEDING AT THIS TIME. NURSE PRACT FOR CHEMO MD WAS ALREADY NOTIFIED.
== END 2024-08-17 13:47 ==
LOC: ACC 13:00
PROVIDERS: PCP Pediatrics; Visit Provider Physician Assistant
DX: Z79.01 Long term (current) use of anticoagulants (principal); I48.91 Unspecified atrial fibrillation
CPT/HCPCS: 85610; 99211; G0463

== ENCOUNTER 2024-08-29 12:21 | Outpatient (CLI) | payer MEDICARE, SELFPAY | END 2024-08-29 14:34 | LOC: ACC 12:22 | PROVIDERS: PCP Internal Medicine Cardiovascular Disease; Visit Provider Physician Assistant | DX: Z79.01 Long term (current) use of anticoagulants (principal); Z86.718 Personal history of other venous thrombosis and embolism | CPT/HCPCS: 85610; 99211; G0463 ==

== ENCOUNTER 2024-09-02 09:57 | Outpatient (CLI) | payer MEDICARE, SELFPAY ==
[2024-09-02 10:23] LABS: PHA INR Fingerstick 3.9 (0.9-1.1)
== END 2024-09-02 10:25 ==
LOC: ACC 09:58
PROVIDERS: PCP Internal Medicine Cardiovascular Disease; Visit Provider Physician Assistant
DX: Z79.01 Long term (current) use of anticoagulants (principal); I48.91 Unspecified atrial fibrillation
CPT/HCPCS: 85610; 99211; G0463

== ENCOUNTER 2024-09-06 10:32 | Observation (INO) | payer MEDICARE, SELFPAY ==
[2024-09-06] VITALS (15 sets, daily range): BP systolic 92–131; BP diastolic 48–81; PULSE 72–101; RESP 11–20; TEMP 36.6–37.2; O2SAT 95–99; BMI 34.4; BMI 33.7
--- NOTE | 2024-09-06 10:38 | ED_ITS ---
<Statement entered by Paloma Sommers DO - 09/06/24 14:58> I was consulted by the KYLIE, and we discussed the complexity of the problems being addressed. I approved the treatment and management plan for this patient's care in the emergency department, thus performing a substantive portion of the medical decision making. Paloma Sommers DO Discharge Plan Disposition Patient Disposition: Admitted Condition: Fair Clinical Impressions Clinical Impression: ANMOL (acute kidney injury), Cancer Discharge ED Provider: Paloma Sommers General Adult HPI General Chief complaint: Weakness Stated complaint: weakness Time Seen by Provider: 09/06/24 10:37 History of Present Illness HPI narrative: Patient is a 78-year-old female PMHx metastatic cancer (colon to liver), stopped chemo 2 weeks ago, who presents to the emergency department for generalized weakness and decreased appetite over the past several days. Related Data Home Medications ?Medication ?Instructions ?Recorded ?Confirmed folic acid 1 mg tablet 1 mg PO DAILY 06/24/24 07/14/24 hydrocodone 5 mg-acetaminophen 325 1 tab PO Q4-6H PRN 06/24/24 07/14/24 mg tablet magnesium oxide 400 mg PO DAILY 06/24/24 07/14/24 duloxetine 30 mg capsule,delayed 30 mg PO DAILY 07/14/24 07/14/24 release potassium chloride 20 mEq meq PO 07/14/24 07/14/24 tablet,extended release warfarin 1 mg tablet 1 mg PO DAILY 09/06/24 09/06/24 Previous Rx's ?Medication ?Instructions ?Recorded ondansetron 4 mg disintegrating 4 mg PO Q6H PRN nausea and 02/17/23 tablet vomiting 5 days #20 tabs furosemide 40 mg tablet See Rx Instructions PO DAILY PRN 06/24/24 edema #60 tabs metoprolol succinate 50 mg 50 mg PO HS #30 tabs 07/14/24 tablet,extended release 24 hr Allergies Allergy/AdvReac Type Severity Reaction Status Date / Time tetracycline Allergy Verified 07/14/24 14:48 [facility] Disclaimer: The information contained in this section may have been updated after the patient was seen, as this information can be updated by other users. Medical History Hx of deep venous thrombosis Hx pulmonary embolism Interatrial cardiac shunt PAF (paroxysmal atrial fibrillation) Palpitations Colon cancer metastasized to liver Social History Smoking Status: Never smoker alcohol intake: never current occupational status: other Travel in the last 8 weeks: None Have you lived/traveled outside US in past 30 days?: No Contact w/someone who lives/traveled outside US past 30 days?: No Exposure to someone with infectious disease in past 14 days?: No Do you have a fever (greater than 100.4 F or 38 C)?: No Have you tested positive for COVID-19: No Exposed to someone with COVID-19 in past 14 days?: No Do you have a sore throat?: No Do you have a cough?: No Do you have any weakness?: Yes Do you have any diarrhea?: No Are you experiencing any unusual bleeding?: No Do you have any muscle aches/pain?: No Do you have any abdominal pain?: No Are you experiencing loss of taste or smell?: No Other Medical History Have you received the Pneumonia Vaccine: Yes ROS Obtained: Yes Systems reviewed as appropriate & no additional complaints except as documented Physical Exam General General appearance: alert and in no apparent distress Head Head exam: atraumatic and normocephalic Eye Eye exam: Present normal appearance and PERRL ENT ENT exam: Present normal exam Neck Neck exam: Present normal inspection Chest Chest inspection: Present normal inspection and symmetric chest wall rise; Absent tenderness Respiratory Respiratory exam: Present normal lung sounds bilaterally Cardiovascular Cardiovascular exam: Present regular rate Abdominal Exam Abdominal exam: Present soft and normal bowel sounds; Absent tenderness Extremities Exam Extremities exam: Present normal inspection Neurological Exam Neurological exam: Present alert, oriented X3 and other (generalized weakness ) Psychiatric Psychiatric exam: Present normal affect and normal mood Skin Skin exam: Present warm and dry Medical Decision Making Medical Records Screening: Per USPSTF and CDC recommendations, given the prevalence of disease in our region, it is our hospital?s policy to screen for HIV and viral Hepatitis for all patients aged 18 and over and those with ongoing risk factors. Iglesia Inquiry Pt receiving controlled substance: No Iglesia was queried for this patient: No Vital Signs: 09/06/24 10:33 09/06/24 10:39 09/06/24 10:54 Temperature 99 F Temperature Source Oral Pulse Rate 72 Pulse Rate [Left] 101 H Respiratory Rate 14 18 20 Blood Pressure 96/76 L 92/65 L Blood Pressure [Left Arm] 96/67 L Blood Pressure Mean [Left Arm] 76 02 Sat by Pulse Oximetry 98 99 Oxygen Delivery Method Nasal Cannula Nasal Cannula Oxygen Flow Rate (LPM) 2 2 09/06/24 11:00 09/06/24 11:30 09/06/24 12:01 Temperature Temperature Source Pulse Rate 100 H 93 H 95 H Pulse Rate [Left] Respiratory Rate 15 15 18 Blood Pressure 95/57 L 103/61 L 131/69 Blood Pressure [Left Arm] Blood Pressure Mean [Left Arm] 02 Sat by Pulse Oximetry 99 95 96 Oxygen Delivery Method Nasal Cannula Nasal Cannula Nasal Cannula Oxygen Flow Rate (LPM) 2 2 2 09/06/24 12:33 09/06/24 13:00 09/06/24 13:30 Temperature Temperature Source Pulse Rate 77 90 89 Pulse Rate [Left] Respiratory Rate 20 11 L 19 Blood Pressure 117/75 97/56 L 113/62 Blood Pressure [Left Arm] Blood Pressure Mean [Left Arm] 02 Sat by Pulse Oximetry 97 98 98 Oxygen Delivery Method Nasal Cannula Nasal Cannula Nasal Cannula Oxygen Flow Rate (LPM) 2 2 2 09/06/24 14:00 09/06/24 15:40 Temperature 98.9 F Temperature Source Oral Pulse Rate 94 H 91 H Pulse Rate [Left] Respiratory Rate 18 16 Blood Pressure 113/81 103/57 L Blood Pressure [Left Arm] Blood Pressure Mean [Left Arm] 02 Sat by Pulse Oximetry 96 Oxygen Delivery Method Nasal Cannula Nasal Cannula Oxygen Flow Rate (LPM) 2 Lab Data Lab Results 09/06/24 10:51: WBC 4.7 L, RBC 3.78 L, Hgb 10.9 L, Hct 31.7 L, MCV 83.9, MCH 28.8, MCHC 34.4, RDW 16.6, Plt Count 386, MPV 9.6, Neut % (Auto) 59.7, Lymph % (Auto) 16.1, [place] % (Auto) 16.5 H, Eos % (Auto) 0.2, Baso % (Auto) 0.9, Neut # (Auto) 2.8, Lymph # (Auto) 0.8, [place] # (Auto) 0.8, Eos # (Auto) 0.0, Baso # (Auto) 0.0, PT 60.8 H, INR 6.54 H, Sodium 130 L, Potassium 3.4 L, Chloride 98, C arbon Dioxide 15 L, Anion Gap 20.4 H, BUN 74 H, Creatinine 3.00 H, Estimated Creat Clear 23, Estimated GFR 15 L*, Est GFR ( Amer) 18 L*, Glucose 140 H , Calcium 8.9, Magnesium 2.2, Total Bilirubin 0.8, AST 26, ALT 17, Alkaline Phosphatase 223 H, Troponin I < 0.01, Total Protein 6.2 L, Albumin 3.0 L, Globulin 3.2, Albumin/Globulin Ratio 0.9 L 09/06/24 10:51 09/06/24 10:51 Orders (Tests/Meds): ED MEDICATIONS Discontinued Medications Generic Name Dose Route Start Last Admin Trade Name Freq PRN Reason Stop Dose Admin Sodium Chloride 1,000 mls @ 999 mls/hr 09/06/24 10:36 09/06/24 10:50 Sod Chlor 0.9% 1000ml Bag IV 09/06/24 11:36 999 mls/hr .Q1H1M ONE Administration Morphine Sulfate 4 mg 09/06/24 10:45 09/06/24 10:50 Morphine 4mg/Ml Syringe IV 09/06/24 10:46 4 mg ONCE ONE Administration Ondansetron HCl 4 mg 09/06/24 10:36 09/06/24 10:51 Ondansetron 4mg/2ml Vial IV 09/06/24 10:37 4 mg ONCE ONE Administration ORDERS Category Date Time Status Care Management Consult [Consult to Case Management] [ Cons 09/06/24 10:50 Active CONS] Routine CBC w/Auto Diff [Complete Blood Count Auto Diff] Stat Lab 09/06/24 10:51 Completed CMP [Comprehensive Metabolic Panel] Stat Lab 09/06/24 10:51 Completed Magnesium Stat Lab 09/06/24 10:51 Completed PT INR [Prothrombin Time INR] AMLAB Lab 09/06/24 10:51 Completed Trop I [Troponin I] Stat Lab 09/06/24 10:51 Completed Troponin I Q3H Lab 09/06/24 16:45 Ordered Urinalysis and Microscopic Stat Lab 09/06/24 10:36 Ordered Medical Decision Narrative: In summary, patient is a 78-year-old female PMHx metastatic cancer (colon to liver), stopped chemo 2 weeks ago, who presents to the emergency department for generalized weakness and decreased appetite over the past several days. Patient states that she has liver pain that she has at baseline however was unable to take her oral morphine this morning. Patient states she has not had any of her daily medications today as she was too weak to take them. Patient states she lives at home with her daughter who helps take care of her however due to her new onset of weakness she is having difficulty taking care of her at home. Upon arrival, patient is alert and oriented. Physical exam remarkable for generalized weakness, cath noted in right chest wall. I had a discussion with daughter in the room about patient's CODE STATUS. Patient verbalized to me that she would like to be a DNR. Witnessed by RN. Form signed. Discussed with patient that we will obtain minimal lab work and rehydrate her with IV fluids, administer Zofran for nausea. Patient's daughter arrived at bedside and confirmed DNR status. Patient's daughter expresses that she would like for patient to receive hospice however patient does not want to be admitted. We contacted care management team to attempt to set up home hospice. Hematologic labs reviewed. CBC remarkable for WBC 4.7, hemoglobin 10.9, hematocrit 31.7. PT 60.8, INR 6.54. CMP remarkable for sodium 138, potassium 3.4, anion gap 20.4, BUN 74, creatinine 3, troponin < 0.01. Patient is hyponatremic, appears to be new ANOML, elevated INR and PT. most likely due to dehydration. Hospice came to the ED and spoke to patient and family, they are now declining hospice. I had an interactive discussion with the patient and family who continued to decline hospice since hospice is unable to administer IV fluids. I discussed with patient that we can admit her to the hospital to treat her ANMOL. Patient is agreeable to this at this time. Critical Care Critical Care Time Critical Care Time: No
[2024-09-06] MEDS: MORPHINE 4MG/ML SYRINGE 4 MG IV (10:50)
[2024-09-06] MEDS: 0.9 % SODIUM CHLORIDE 1000ML 1,000 ML 999 ML IV (10:50)
[2024-09-06] MEDS: ONDANSETRON 4MG/2ML VIAL 4 MG IV ×2 (10:51→18:34)
[2024-09-06 11:10] LABS: Alanine Aminotransferase 17 U/L (12-78); Albumin/Globulin Ratio 0.9 (1.1-1.8); Alkaline Phosphatase 223 U/L (38-126); Anion Gap 20.4 mEq/L (5-15); Aspartate Amino Transferase 26 U/L (14-36); Bilirubin,Total 0.8 mg/dl (0.2-1.3); Blood Urea Nitrogen 74 mg/dl (7-17); Calcium 8.9 mg/dl (8.4-10.2); Carbon Dioxide 15 mmol/L (22.0-30.0); Chloride 98 mmol/L (98-107); Creatinine Clearance Estimated 23 mL/min (50-200); Estimated Glomerular Filt Rate 15 ml/min (>60); GFR (African American) 18 ML/MIN (>60); Globulin 3.2 g/dL (1.3-3.2); Glucose 140 mg/dl (74-100); Potassium 3.4 mmoL/L (3.5-5.1); Sodium 130 mmol/L (136-145); Total Protein,Serum 6.2 g/dl (6.3-8.2)
[2024-09-06 11:23] LABS: Troponin I < 0.01 ng/ml (0.00-0.034)
--- NOTE | 2024-09-06 11:40 | CARE MANAGER ---
Received referral on the above stated patient for Hospice consult from the ER. Spoke with patient, Vicky Roblero and daughter Thea who states that patient lives with her and recently stopped chemo for colon and liver cancer. Family is requested some help at home as the patient would like to at home they did not express any other wishes at this time. Called [facility] and spoke with Jalil who states that they will be up within the hour to eval the patient and see if maybe she is a candidate for the care center for symptom management. This information was forwarded to Reyna ER nurse.
[2024-09-06 11:48] LABS: Basophils % 0.9 % (0.1-2.0); Eosinophils % 0.2 % (0.1-12.0); Hematocrit 31.7 % (37.0-47.0); Hemoglobin 10.9 g/dL (12.2-16.2); Lymphocytes # 0.8 K/mm3 (0.7-4.5); Lymphocytes % 16.1 % (10-50); Mean Corpuscular HGB Conc 34.4 g/dL (31.8-35.4); Mean Corpuscular Hemoglobin 28.8 pg (27.0-31.2); Mean Corpuscular Volume 83.9 fl (81-99); Mean Platelet Volume 9.6 fl (7.4-10.4); Monocytes # 0.8 K/mm3 (0.1-1.0); Monocytes % 16.5 % (1.7-9.3); Neutrophils # 2.8 K/mm3 (1.8-7.8); Neutrophils % 59.7 % (37.0-80.0); Platelet Count 386 K/mm3 (142-424); Red Blood Count 3.78 M/mm3 (4.20-5.40); Red Cell Distribution Width 16.6 % (11.5-17.5); White Blood Count 4.7 K/mm3 (4.8-10.8)
[2024-09-06 12:09] LABS: INR 6.54 (0.9-1.1); Prothrombin Time 60.8 seconds (10.1-12.5)
[2024-09-06 12:43] LABS: Magnesium 2.2 mg/dl (1.6-2.3)
--- NOTE | 2024-09-06 13:19 | PC.NURSE ---
hospice nurse @ bedside speaking with pt and family
--- NOTE | 2024-09-06 14:41 | PC.NURSE ---
pt is currently on bedside commode with family present in room
--- NOTE | 2024-09-06 15:05 | PC.NURSE ---
Assisted patient back to bed and gave her a warm blanket
--- NOTE | 2024-09-06 15:17 | PC.NURSE ---
MEDICAL ECONOMICS CONSULTANT NOTIFIED OF ADMISSION
--- NOTE | 2024-09-06 15:33 | PC.NURSE ---
report called to Christine
[2024-09-06 17:35] LABS: Troponin I < 0.01 ng/ml (0.00-0.034)
--- NOTE | 2024-09-06 18:05 | PC.NURSE ---
pt resting supine in bed with family at bedside. requiring 2LNC to maintain o2 sats >90%. excoriation noted to yanelis area. redness on bottom- barrier cream applied. purewick in place. occasional nausea. no complaints of pain. no needs at this time. call light within reach.
[2024-09-06] MEDS: LACTATED RINGERS 1000ML 1,000 ML 100 ML IV (18:34)
--- NOTE | 2024-09-06 18:55 | PC.NURSE ---
password sat for pt: [phone]
[2024-09-06] MEDS: KCl 10mEq/100ml 100 ML 100 MEQ IV ×4 (19:00→23:45)
--- NOTE | 2024-09-06 19:12 | P.HP_ITS ---
History of Present Illness *Admission Date: 09/06/24 *Reason for visit:: Generalized weakness, nausea/vomiting *History of present illness: Vicky Roblero is a 78-year-old female with a medical history significant for metastatic colon cancer to the liver who presents with progressive generalized weakness, nausea/vomiting. Patient and family at bedside state patient has been undergoing chemotherapy for the past 2 years for colon cancer at [facility]. A new chemotherapy regimen was started this past month with 2 rounds, last therapy being on 09/02/2024. Patient has had significant side effects to chemotherapy including generalized weakness, nausea/vomiting, poor appetite. Therefore, joint decision was made with oncologist to discontinue further aggressive treatment of cancer. On arrival, creatinine 3.0 (baseline 1.0), AGAP 20.4. Extensive conversations were had in the ED regarding pursuing hospice care to which patient and family were interested. Hospice care was consulted and family was in the process of signing papers, however son arrived and was not interested in pursuing hospice care for patient. Therefore plans for hospice care were put on hold. Case discussed with ED provider decision was made to admit patient for intractable nausea/vomiting, ANMOL, and further discussion regarding hospice care. [facility] Disclaimer: The information contained in this section may have been updated after the patient was seen, as this information can be updated by other users. Medical History Hx of deep venous thrombosis Hx pulmonary embolism Interatrial cardiac shunt PAF (paroxysmal atrial fibrillation) Palpitations Colon cancer metastasized to liver Social History Smoking Status: Never smoker alcohol intake: never current occupational status: other Travel in the last 8 weeks: None Have you lived/traveled outside US in past 30 days?: No Contact w/someone who lives/traveled outside US past 30 days?: No Exposure to someone with infectious disease in past 14 days?: No Do you have a fever (greater than 100.4 F or 38 C)?: No Have you tested positive for COVID-19: No Exposed to someone with COVID-19 in past 14 days?: No Do you have a sore throat?: No Do you have a cough?: No Do you have any weakness?: Yes Do you have any diarrhea?: No Are you experiencing any unusual bleeding?: No Do you have any muscle aches/pain?: No Do you have any abdominal pain?: No Are you experiencing loss of taste or smell?: No Other Medical History Have you received the Flu Vaccine for this season: No Have you received the Pneumonia Vaccine: No Meds Home Medications and Allergies Home Medications ?Medication ?Instructions ?Recorded ?Confirmed ?Type folic acid 1 mg tablet 1 mg PO DAILY 06/24/24 09/06/24 History magnesium oxide 400 mg PO DAILY 06/24/24 09/06/24 History duloxetine 30 mg capsule,delayed 30 mg PO DAILY 07/14/24 09/06/24 History release metoprolol succinate 50 mg 50 mg PO HS #30 tabs 07/14/24 09/06/24 Rx tablet,extended release 24 hr potassium chloride 20 mEq 20 meq PO DAILY 07/14/24 09/06/24 History tablet,extended release famotidine 20 mg tablet 20 mg PO BID 09/06/24 09/06/24 History hydrocodone 7.5 mg-acetaminophen 1 tab PO Q4-6H 09/06/24 09/06/24 History 325 mg tablet ondansetron 4 mg disintegrating 8 mg PO TID PRN nausea and vomiting 09/06/24 09/06/24 History tablet warfarin 1 mg tablet 1 mg PO DAILY 09/06/24 09/06/24 History New Prescriptions to Start Prescriptions: Allergies Allergy/AdvReac Type Severity Reaction Status Date / Time tetracycline Allergy Verified 07/14/24 14:48 Exam Data for Last 24 hours Vital signs and Labs for Last 24 Hours: Temp Pulse Resp BP Pulse Ox O2 Del Method O2 Flow Rate 97.8 F 91 H 16 94/62 L 98 Nasal Cannula 2 09/06/24 15:57 09/06/24 15:57 09/06/24 15:57 09/06/24 15:57 09/06/24 15:57 09/06/24 18:46 09/06/24 18:46 Laboratory Results - last 24 hr 09/06/24 10:51: WBC 4.7 L, RBC 3.78 L, Hgb 10.9 L, Hct 31.7 L, MCV 83.9, MCH 28.8, MCHC 34.4, RDW 16.6, Plt Count 386, MPV 9.6, Neut % (Auto) 59.7, Lymph % (Auto) 16.1, Yell % (Auto) 16.5 H, Eos % (Auto) 0.2, Baso % (Auto) 0.9, Neut # (Auto) 2.8, Lymph # (Auto) 0.8, Yell # (Auto) 0.8, Eos # (Auto) 0.0, Baso # (Auto) 0.0, PT 60.8 H, INR 6.54 H, Sodium 130 L, Potassium 3.4 L, Chloride 98, Carbon Dioxide 15 L, Anion Gap 20.4 H, BUN 74 H, Creatinine 3.00 H, Estimated Creat Clear 23, Estimated GFR 15 L*, Est GFR ( Amer) 18 L*, Glucose 140 H , Calcium 8.9, Magnesium 2.2, Total Bilirubin 0.8, AST 26, ALT 17, Alkaline Phosphatase 223 H, Troponin I < 0.01, Total Protein 6.2 L, Albumin 3.0 L, Globulin 3.2, Albumin/Globulin Ratio 0.9 L 09/06/24 16:45: Troponin I < 0.01 I & O for Last 24 hours: Intake & Output 09/03/24 09/04/24 09/05/24 09/06/24 23:59 23:59 23:59 23:59 Weight 89.131 kg Constitutional Constitutional: no acute distress and obese *Routine HEENT Exam Head: Present normocephalic Eye: Present EOMI and PERRL ENT: Present mucous membranes moist *Routine Neck Exam Neck: Present supple; Absent lymphadenopathy *Routine Respiratory Exam Respiratory: Present CTA bilaterally *Routine Cardiovascular Exam Cardiovascular: Present RRR *Routine Abdominal Exam Abdominal: Present soft, normoactive bowel sounds and tenderness *Routine Rectal Exam Rectal:: deferred *Routine Genitalia Exam Genitalia:: deferred *Routine Extremities Exam Extremities: Absent cyanosis, clubbing or edema *Routine Skin Exam Skin: Present warm; Absent rash *Routine Neurological Exam Neurological: Present alert and oriented X3 Assessment and Plan *Assessment and plan (1) Cancer: Status: Acute Category: Medical Code(s): C80.1 - Malignant (primary) neoplasm, unspecified Plan Vickytessie Roblero is a 78-year-old female with a medical history significant for metastatic colon cancer to the liver who presents with progressive generalized weakness, nausea/vomiting. Patient and family at bedside state patient has been undergoing chemotherapy for the past 2 years for colon cancer at [facility]. A new chemotherapy regimen was started this past month with 2 rounds, last therapy being on 09/02/2024. Patient has had significant side effects to chemotherapy including generalized weakness, nausea/vomiting, poor appetite. Therefore, joint decision was made with oncologist to discontinue further aggressive treatment of cancer. On arrival, creatinine 3.0 (baseline 1.0), AGAP 20.4. Extensive conversations were had in the ED regarding pursuing hospice care to which patient and family were interested. Hospice care was consulted and family was in the process of signing papers, however son arrived and was not interested in pursuing hospice care for patient. Therefore plans for hospice care were put on hold. Case discussed with ED provider decision was made to admit patient for intractable nausea/vomiting, ANMOL, and further discussion regarding hospice care. #Metastatic colon cancer #Intractable nausea/vomiting #ANMOL #High anion metabolic acidosis ? Patient no longer desires to pursue cancer treatment. Elects for hospice care. Case management consulted, will assist with further hospice discussions. ? Initial creatinine 3.0, baseline 1.0. AGAP 20.4. 1 L bolus given in the ED. ? Continue LR @ 100 mL/h. ? Follow-up CMP in the morning. ? Zofran for nausea, Dilaudid for pain control, trazodone for sleep as needed. #Supratherapeutic INR ? Patient takes Coumadin in the setting of cancer. PT/INR 60.8/6.54. ? Will give IV vitamin K 10 mg, follow-up PT/INR in the morning. #Anxiety/depression ? Continue home duloxetine. QTc 400. #GERD ? Continue home famotidine. DNR/DNI DVT prophylaxis: Hold due to elevated PT/INR
[2024-09-06] MEDS: FAMOTIDINE 20MG TABLET 20 MG PO (20:27)
[2024-09-06] MEDS: PHYTONADIONE 10 MG in 0.9 % SODIUM CHLORIDE 50 ML 100 MG IV (22:00)
[2024-09-07] VITALS (8 sets, daily range): BP systolic 85–120; BP diastolic 47–59; PULSE 90–100; RESP 16–17; TEMP 36.4–36.6; O2SAT 80–97; BMI 34.4
[2024-09-07] MEDS: KCl 10mEq/100ml 100 ML 100 MEQ IV ×2 (00:57→02:18)
[2024-09-07] MEDS: LACTATED RINGERS 1000ML 1,000 ML 100 ML IV (03:46)
[2024-09-07 06:46] LABS: Albumin Level 2.4 g/dl (3.5-5.0); Chloride 104 mmol/L (98-107); Potassium 4.3 mmoL/L (3.5-5.1); Sodium 129 mmol/L (136-145)
[2024-09-07 06:48] LABS: Blood Urea Nitrogen 70 mg/dl (7-17); Creatinine Clearance Estimated 28 mL/min (50-200); Estimated Glomerular Filt Rate 19 ml/min (>60); GFR (African American) 23 ML/MIN (>60)
[2024-09-07 06:49] LABS: Alanine Aminotransferase 12 U/L (12-78); Albumin/Globulin Ratio 0.8 (1.1-1.8); Alkaline Phosphatase 188 U/L (38-126); Anion Gap 14.3 mEq/L (5-15); Aspartate Amino Transferase 28 U/L (14-36); Bilirubin,Total 0.6 mg/dl (0.2-1.3); Calcium 8.6 mg/dl (8.4-10.2); Carbon Dioxide 15 mmol/L (22.0-30.0); Globulin 2.9 g/dL (1.3-3.2); Glucose 122 mg/dl (74-100); Phosphorous 4.4 mg/dl (2.5-4.5); Total Protein,Serum 5.3 g/dl (6.3-8.2)
--- NOTE | 2024-09-07 06:57 | PC.NURSE ---
Pt is alert and oriented x4, and tolerating 2L well at this time. Pt has rested well this shift and denies pain and nausea. Pt has not urinated this shift, Bladder scan resulted 288 ml, Pt denies abdominal pain and no abdominal distention noted. Pt has tolerated fluids and potassium replacement well. No acute changes to note at this time
[2024-09-07 06:58] LABS: Basophils % 0.8 % (0.1-2.0); Eosinophils % 0.4 % (0.1-12.0); Hematocrit 28.1 % (37.0-47.0); Lymphocytes # 1.1 K/mm3 (0.7-4.5); Lymphocytes % 22.8 % (10-50); Mean Corpuscular HGB Conc 33.5 g/dL (31.8-35.4); Mean Corpuscular Hemoglobin 28.7 pg (27.0-31.2); Mean Corpuscular Volume 85.9 fl (81-99); Mean Platelet Volume 9.3 fl (7.4-10.4); Monocytes # 0.6 K/mm3 (0.1-1.0); Monocytes % 11.9 % (1.7-9.3); Neutrophils # 2.7 K/mm3 (1.8-7.8); Neutrophils % 55.9 % (37.0-80.0); Platelet Count 306 K/mm3 (142-424); Red Blood Count 3.27 M/mm3 (4.20-5.40); Red Cell Distribution Width 16.9 % (11.5-17.5); White Blood Count 4.9 K/mm3 (4.8-10.8)
[2024-09-07 07:02] LABS: Hemoglobin 9.4 g/dL (12.2-16.2)
[2024-09-07 07:37] LABS: INR 1.61 (0.9-1.1); Prothrombin Time 17.2 seconds (10.1-12.5)
--- NOTE | 2024-09-07 07:56 | HMH.PHAINT1 ---
Pharmacy Intervention Comments: home medication list verified using list from outpatient pharmacy and pt interview
--- NOTE | 2024-09-07 07:59 | PC.NURSE ---
PER FAMILY PT NEEDS ASSISTANCE WITH FEEDING. ATTEMPTED TO ASSIST PT WITH EATING BREAKFAST, BUT PT STATED I AM INDEPENDENT, I CAN DO IT MYSELF . THIS RN SAT UP PT TRAY AND OPENED ALL CONTAINERS. CALL LIGHT WITHIN REACH.
[2024-09-07] MEDS: MAGNESIUM OXIDE 400MG TABLET 400 MG PO (08:24)
[2024-09-07] MEDS: FAMOTIDINE 20MG TABLET 20 MG PO (08:24)
[2024-09-07] MEDS: DULOXETINE 30MG CAPSULE.DR 30 MG PO (08:24)
[2024-09-07] MEDS: LACTATED RINGERS 1000ML 1,000 ML 500 ML IV (09:19)
--- NOTE | 2024-09-07 10:40 | PC.NURSE ---
pt on bedside and stated that she thought she had peed . urine produced mixed with BM, so unable to measure. bladder scanned pt due to lack of urine production overnight, which resulted in 47ml present. pt verbalized no feelings of fullness or discomfort
[2024-09-07] MEDS: PHENOL THROAT SPRAY 177 ML BOTTLE MM (12:00)
[2024-09-07] MEDS: NYSTATIN TOPICAL POWDER 30GM TP (12:01)
--- NOTE | 2024-09-07 12:04 | HMH.PTEV ---
Physical Therapy Evaluation Rehab PT IP Evaluation Start: 09/06/24 17:57 Freq: ONCE Status: Active Protocol: Document 09/07/24 09:50 TERESA (Rec: 09/07/24 12:03 PHOMERON [id number]) Subjective/History History History Vicky Roblero is a 78-year- old female with a medical history significant for metastatic colon cancer to the liver who presents with progressive generalized weakness, nausea/vomiting. Patient and family at bedside state patient has been undergoing chemotherapy for the past 2 years for colon cancer at [facility]. A new chemotherapy regimen was started this past month with 2 rounds, last therapy being on 09/02/2024. Patient has had significant side effects to chemotherapy including generalized weakness , nausea/vomiting, poor appetite. Plans for pursuing hospice care were discussed but put on hold, and pt was admitted for intractable nausea/vomiting, ANMOL, and further discussion regarding hospice care. Subjective Subjective Pt presents resting in supine at start of session and is willing to participate in therapy this AM to transfer to bedside commode. Pt was able to stand at EOB and transferred to bedside commode . Pt was left seated on bedside commode with [facility] staff notified. New diagnosis of cancer in past 12 Yes months? [facility] How much help from another person do you currently need... Turning from your back to your side None while in a flat bed without using bedrails? Moving from lying on back to sitting on None the side of a flat bed without using bedrails? Moving to and from a bed to a chair ( A little including a wheelchair)? Standing up from a chair using your arms A little ? (e.g., wheelchair, bedside chair) Walking in hospital room? A lot Climbing 3-5 steps with a railing? A lot Mobility Score 18 Mobility Level [facility] Mobility Calculator Mobility 6 Walk 10 steps or more Rehab PT IP Eval Objective Appearance Patient Behavior Appropriate Patient Orientation Person,Place,Time Difficulty following instructions none Speech Pattern Clear Ambulation Patient Able to Ambulate Yes Ambulation Observation IP General Gait Pattern Observation Shuffling Step Ambulation Distance (feet) 3 Ambulation Assistive Device None Ambulation Ability Minimal x 2 (25% assist) Balance Ability to Arise Able, uses arms to help Sitting Balance Steady, safe Standing Balance Unsteady Dynamic Sitting Balance Ability Normal Dynamic Standing Balance Ability Fair Transfers Bed Transfer Ability Contact Guard/Hand Hold Chair Transfer Ability Minimal x 2 (25% assist) Sit to Stand Bed Transfer Ability Moderate x 1 (50% assist) Sit to Stand Chair Transfer Ability Moderate x 1 (50% assist) Rehab PT IP prob,goals,plan Problems Date of Evaluation: 09/07/24 PT IP Problems Transfers,Gait,Balance Rehab Potential Rehab Potential Good Plan PT Intervention Plan Transfers,Gait,Balance, Therapeutic Exercise PT Plan Frequency Daily Duration LOS Discharge Goals Bed Transfer Ability Minimal x 1 (25% assist) Sit to Stand Chair Transfer Ability Minimal x 1 (25% assist) Ambulation Assistive Device Rolling Walker Ambulation Distance (feet) 15 Discharge Plan PT Discharge Plan Pt is currently indicated to return home with family assistance for ADLs once medically stable for d/c. Skilled therapy is indicated to improve strength, mobility, and transfer ability to increase independence with ADLs at home, transfers to bedside commode, and to decrease caregiver burden. Eval Complexity Eval Charge Codes 42035 - High Complexity PHYSICIAN CERTIFICATION: I certify the specified therapy services for Vicky Roblero are required, authorized, and reviewed every 30 days.
--- NOTE | 2024-09-07 12:52 | CARE MANAGER ---
Patient will require a hospital bed r/t having a medical condition which requires positioning of the body in ways not feasible with an ordinary bed in order to alleviate pain. She will also require a BSC due to inability to ambulate distance from bed to home bathroom.
[2024-09-07 13:11] LABS: Anion Gap 17.1 mEq/L (5-15); Blood Urea Nitrogen 69 mg/dl (7-17); Calcium 8.5 mg/dl (8.4-10.2); Carbon Dioxide 15 mmol/L (22.0-30.0); Chloride 103 mmol/L (98-107); Creatinine Clearance Estimated 31 mL/min (50-200); Estimated Glomerular Filt Rate 22 ml/min (>60); GFR (African American) 26 ML/MIN (>60); Glucose 147 mg/dl (74-100); Potassium 4.1 mmoL/L (3.5-5.1); Sodium 131 mmol/L (136-145)
--- NOTE | 2024-09-07 14:28 | P.DS_ITS ---
General Admission date:: 09/06/24 HPI HPI HPI: Vicky Roblero is a 78-year-old female with a medical history significant for metastatic colon cancer to the liver who presents with progressive generalized weakness, nausea/vomiting. Patient and family at bedside state patient has been undergoing chemotherapy for the past 2 years for colon cancer at [facility]. A new chemotherapy regimen was started this past month with 2 rounds, last therapy being on 09/02/2024. Patient has had significant side effects to chemotherapy including generalized weakness, nausea/vomiting, poor appetite. Therefore, joint decision was made with oncologist to discontinue further aggressive treatment of cancer. On arrival, creatinine 3.0 (baseline 1.0), AGAP 20.4. Extensive conversations were had in the ED regarding pursuing hospice care to which patient and family were interested. Hospice care was consulted and family was in the process of signing papers, however son arrived and was not interested in pursuing hospice care for patient. Therefore plans for hospice care were put on hold. Case discussed with ED provider decision was made to admit patient for intractable nausea/vomiting, ANMOL, and further discussion regarding hospice care. Hospital Course Hospital Course Hospital Course: Vicky Roblero is a 78-year-old female with a medical history significant for metastatic colon cancer to the liver who presents with progressive generalized weakness, nausea/vomiting. Patient and family at bedside state patient has been undergoing chemotherapy for the past 2 years for colon cancer at [facility]. A new chemotherapy regimen was started this past month with 2 rounds, last therapy being on 09/02/2024. Patient has had significant side effects to chemotherapy including generalized weakness, nausea/vomiting, poor appetite. Therefore, joint decision was made with oncologist to discontinue further aggressive treatment of cancer. On arrival, creatinine 3.0 (baseline 1.0), AGAP 20.4. Extensive conversations were had in the ED regarding pursuing hospice care to which patient and family were interested. Hospice care was consulted and family was in the process of signing papers, however son arrived and was not interested in pursuing hospice care for patient. Therefore plans for hospice care were put on hold. Case discussed with ED provider decision was made to admit patient for intractable nausea/vomiting, ANMOL, and further discussion regarding hospice care. #Metastatic colon cancer #Intractable nausea/vomiting #ANMOL #High anion metabolic acidosis ? Patient no longer desires to pursue cancer treatment due to significant side effects of chemotherapy. Initially was interested in hospice care, but after discussion with family she elected did not pursue hospice care but still wants to pursue comfort approach to cancer. Presumably because of bad experience with hospice care with a family member. Strongly encourage patient to reconsider, especially in the setting of needing pain management for hepatic pain from metastasis. She states she will follow-up with oncology for further pain management. ? Renal function improved after fluid resuscitation. Patient feels better, appetite improved and without nausea. ? Advised patient to stay hydrated. She states she will follow-up with [facility] for further management of comfort approach to cancer care. ? Discharged with Percocet 5 mg every 6 hours as needed for 5 days, Zofran. #Acute hypoxic respiratory failure #Community-acquired pneumonia ? Independent review of CXR reveals right lower lobe opacities, patient saturating 80% on room air at rest. Requiring 3 L. No signs of sepsis. ? Given IV ceftriaxone, azithromycin. Will transition to Augmentin, azithromycin for 6 more days. #Supratherapeutic INR #History of DVT ? Patient takes Coumadin in the setting of cancer. PT/INR 60.8/6.54. ? Improved to 17.2/1.61 after IV vitamin K 10 mg. ? Continue Coumadin 1 mg daily. #Anxiety/depression ? Continue home duloxetine. QTc 400. #GERD ? Continue home famotidine. Total time spent on discharge: 35 minutes on chart review, counseling, documentation, and direct care with patient. Exam Data for Last 24 hours Vital signs and Labs for Last 24 Hours: Temp Pulse Resp BP Pulse Ox O2 Del Method O2 Flow Rate 97.6 F 90 17 85/59 L 80 L Nasal Cannula 3 09/07/24 08:45 09/07/24 12:00 09/07/24 08:45 09/07/24 08:45 09/07/24 12:52 09/07/24 13:00 09/07/24 13:00 Laboratory Results - last 24 hr 09/06/24 16:45: Troponin I < 0.01 09/07/24 06:30: WBC 4.9, RBC 3.27 L, Hgb 9.4 L D, Hct 28.1 L, MCV 85.9, MCH 28.7, MCHC 33.5, RDW 16.9, Plt Count 306, MPV 9.3, Neut % (Auto) 55.9, Lymph % (Auto) 22.8, [place] % (Auto) 11.9 H, Eos % (Auto) 0.4, Baso % (Auto) 0.8, Neut # (Auto) 2.7, Lymph # (Auto) 1.1, [place] # (Auto) 0.6, Eos # (Auto) 0.0, Baso # (Auto) 0.0, PT 17.2 H, INR 1.61 H, Sodium 129 L, Potassium 4.3 D, Chloride 104, Carbon Dioxide 15 L, Anion Gap 14.3, BUN 70 H, Creatinine 2.50 H, Estimated Creat Clear 28, Estimated GFR 19 L*, Est GFR ( Amer) 23 L D, Glucose 122 H, Calcium 8.6, Phosphorus 4.4, Magnesium 2.0, Total Bilirubin 0.6, AST 28, ALT 12 D, Alkaline Phosphatase 188 H, Total Protein 5.3 L, Albumin 2.4 L D, Globulin 2.9, Albumin/Globulin Ratio 0.8 L 09/07/24 12:49: Sodium 131 L, Potassium 4.1, Chloride 103, Carbon Dioxide 15 L, Anion Gap 17.1 H, BUN 69 H, Creatinine 2.20 H, Estimated Creat Clear 31, Estimated GFR 22 L, Est GFR ( Amer) 26 L, Glucose 147 H D, Calcium 8.5 I & O for Last 24 hours: Intake & Output 09/04/24 09/05/24 09/06/24 09/07/24 23:59 23:59 23:59 23:59 Intake Total 3407 / 3407 Output Total 0 / 0 Balance 3407 / 3407 Weight 89.131 kg 91.399 kg Constitutional Constitutional: no acute distress and obese *Routine HEENT Exam Head: Present normocephalic Eye: Present EOMI and PERRL ENT: Present mucous membranes moist *Routine Neck Exam Neck: Present supple; Absent lymphadenopathy *Routine Respiratory Exam Respiratory: Present CTA bilaterally *Routine Cardiovascular Exam Cardiovascular: Present RRR *Routine Abdominal Exam Abdominal: Present soft, normoactive bowel sounds and tenderness *Routine Extremities Exam Extremities: Absent cyanosis, clubbing or edema *Routine Skin Exam Skin: Present warm; Absent rash *Routine Neurological Exam Neurological: Present alert and oriented X3 Results Data Completed and Pending Labs on day of discharge: Labs from last 24 hours 09/07/24 09/07/24 09/06/24 12:49 06:30 16:45 WBC 4.9 RBC 3.27 L Hgb 9.4 L D Hct 28.1 L MCV 85.9 MCH 28.7 MCHC 33.5 RDW 16.9 Plt Count 306 MPV 9.3 Neut % (Auto) 55.9 Lymph % (Auto) 22.8 [place] % (Auto) 11.9 H Eos % (Auto) 0.4 Baso % (Auto) 0.8 Neut # (Auto) 2.7 Lymph # (Auto) 1.1 [place] # (Auto) 0.6 Eos # (Auto) 0.0 Baso # (Auto) 0.0 PT 17.2 H INR 1.61 H Sodium 131 L 129 L Potassium 4.1 4.3 D Chloride 103 104 Carbon Dioxide 15 L 15 L Anion Gap 17.1 H 14.3 BUN 69 H 70 H Creatinine 2.20 H 2.50 H Estimated Creat Clear 31 28 Estimated GFR 22 L 19 L* Est GFR ( Amer) 26 L 23 L D Glucose 147 H D 122 H Calcium 8.5 8.6 Phosphorus 4.4 Magnesium 2.0 Total Bilirubin 0.6 AST 28 ALT 12 D Alkaline Phosphatase 188 H Troponin I < 0.01 Total Protein 5.3 L Albumin 2.4 L D Globulin 2.9 Albumin/Globulin Ratio 0.8 L DS: Diagnosis Discharge Diagnosis (1) Cancer: Status: Acute Code(s): C80.1 - Malignant (primary) neoplasm, unspecified Meds Home Medications and Allergies Home Medications ?Medication ?Instructions ?Recorded ?Confirmed ?Type folic acid 1 mg tablet 1 mg PO DAILY 06/24/24 09/06/24 History magnesium oxide 400 mg PO DAILY 06/24/24 09/06/24 History duloxetine 30 mg capsule,delayed 30 mg PO DAILY 07/14/24 09/06/24 History release metoprolol succinate 50 mg 50 mg PO HS #30 tabs 07/14/24 09/06/24 Rx tablet,extended release 24 hr potassium chloride 20 mEq 20 meq PO DAILY 07/14/24 09/06/24 History tablet,extended release famotidine 20 mg tablet 20 mg PO BID 09/06/24 09/06/24 History warfarin 1 mg tablet 1 mg PO DAILY 09/06/24 09/06/24 History amoxicillin 500 mg-potassium 1 tab PO TID 6 days #18 tabs 09/07/24 Rx clavulanate 125 mg tablet (Augmentin) azithromycin 250 mg tablet 250 mg PO DAILY 4 days #4 tabs 09/07/24 Rx diphenoxylate-atropine 2.5 1 tab PO TID PRN Abdominal 09/07/24 09/07/24 History mg-0.025 mg tablet Discomfort lorazepam 1 mg tablet 1 mg PO TID PRN Nausea 09/07/24 09/07/24 History metoclopramide HCl 5 mg tablet 5 mg PO TID 09/07/24 09/07/24 History morphine 15 mg immediate release 15 mg PO Q4-6H PRN Pain 09/07/24 09/07/24 History tablet ondansetron 4 mg disintegrating 8 mg (2 x 4 mg) PO TID PRN nausea 09/07/24 Rx tablet and vomiting 5 days #15 tabs oxycodone-acetaminophen 5 mg-325 1 tab PO Q6H PRN pain 5 days #20 09/07/24 Rx mg tablet (Percocet) tabs ropinirole 0.5 mg tablet 0.5 mg PO TID 09/07/24 09/07/24 History New Prescriptions to Start Prescriptions: amoxicillin-pot clavulanate [Augmentin] Jim Landry azithromycin Jim Landry ondansetron Jim Landry oxycodone-acetaminophen [Percocet] Jim Landry Allergies Allergy/AdvReac Type Severity Reaction Status Date / Time tetracycline Allergy Verified 07/14/24 14:48 Discharge Plan Disposition Patient Disposition: Home, Self-Care Condition: Fair Follow up Plan Follow up with: Elie Scott [Primary Care Provider] - 09/12/24 2:00 pm Prescriptions/Medication Reconciliation: New oxycodone-acetaminophen [Percocet] 5-325 mg tablet 1 tab PO Q6H PRN (Reason: pain) 5 Days Qty: 20 0RF amoxicillin-pot clavulanate [Augmentin] 500-125 mg tablet 1 tab PO TID 6 Days Qty: 18 0RF azithromycin 250 mg tablet 250 mg PO DAILY 4 Days Qty: 4 0RF Rx Instructions: start on day 2 of therapy Continued folic acid 1 mg tablet 1 mg PO DAILY magnesium oxide 400 mg magnesium tablet 400 mg PO DAILY potassium chloride 20 mEq tablet extended release 20 meq PO DAILY Patient Comments: TAKE 1 TABLET BY MOUTH EVERY DAY DIRECTED duloxetine 30 mg capsule,delayed release(DR/EC) 30 mg PO DAILY Patient Comments: TAKE 1 CAPSULE BY MOUTH EVERY DAY warfarin 1 mg Tablet 1 mg PO DAILY famotidine 20 mg tablet 20 mg PO BID Patient Comments: TAKE 1 TABLET BY MOUTH 2 TIMES A DAY ropinirole 0.5 mg tablet 0.5 mg PO TID Patient Comments: TAKE 1 TABLET BY MOUTH 3 TIMES A DAY metoclopramide HCl 5 mg tablet 5 mg PO TID Patient Comments: TAKE 1 TABLET BY MOUTH 3 TIMES A DAY NEEDED lorazepam 1 mg tablet 1 mg PO TID PRN (Reason: Nausea) Patient Comments: TAKE 1 TABLET BY MOUTH 3 TIMES A DAY NEEDED FOR NAUSEA morphine 15 mg tablet 15 mg PO Q4-6H PRN (Reason: Pain) Patient Comments: TAKE 1 TABLET BY MOUTH EVERY 3 TO 4 HOURS NEEDED diphenoxylate-atropine 2.5-0.025 mg tablet 1 tab PO TID PRN (Reason: Abdominal Discomfort) Patient Comments: TAKE 1 TABLET BY MOUTH 4 TIMES A DAY NEEDED Changed ondansetron 4 mg tablet,disintegrating 8 mg PO TID PRN (Reason: nausea and vomiting) 5 Days Qty: 15 0RF Held metoprolol succinate 50 mg tablet extended release 24 hr 50 mg PO HS Qty: 30 5RF Hold Instructions: Resume on 09/21/24. Your blood pressures are on the low side. Hold this medication until you follow-up with your PCP. Discontinued hydrocodone-acetaminophen 7.5-325 mg tablet 1 tab PO Q4-6H PRN (Reason: Pain) Patient Comments: TAKE 1 TABLET BY MOUTH EVERY 4 TO 6 HOURS NEEDED Problem Reconciliation Problems Reviewed?: Yes Patient Discharge Instructions Patient Instructions: DI for Muscle Weakness, DI for Acute Kidney Injury, Coumadin Vitamin K/ Diet Print Language: B[place] Providers Primary Care Provider: Elie Scott Admit Provider: Jim Landry Attending Provider: Jim Landry
[2024-09-07] MEDS: ONDANSETRON 4MG/2ML VIAL 4 MG IV (14:32)
[2024-09-07] MEDS: LACTATED RINGERS 1000ML 1,000 ML 999 ML IV (14:32)
--- NOTE | 2024-09-07 14:32 | XR_ITS ---
FINAL REPORT CLINICAL HISTORY: hypoxia, soa COMPARISON: 06/23/2024 FINDINGS: There is mild atelectasis at the lung bases. There is no acute infiltrate. There is no evidence of effusion or pneumothorax. Mediastinum is unremarkable. A right chest port tip is in the upper SVC. Heart size is normal. IMPRESSION: Mild atelectasis. Reviewed, Interpreted and Dictated by Belle Lopez MD Transcribed by Nathalie Arango Authenticated and [facility]
[2024-09-07] MEDS: AZITHROMYCIN 500 MG in 0.9 % SODIUM CHLORIDE 250 ML 250 MG IV (15:31)
[2024-09-07] MEDS: CEFTRIAXONE 1 GM 1 GM in 0.9 % SODIUM CHLORIDE 50 ML IV (16:36)
--- NOTE | 2024-09-08 15:42 | SW/DCPLANNER ---
Spoke with patients daughter on the phone. Patients daughter stated that her mom is weak and doing ok. Patients daughter stated that they are aware of her upcoming appointment. Patients daughter stated that they were able to get the medicine from clinic pharmacy and that it was brought to the room before patient was discharged. Patients daughter stated that she has no concerns or questions at this time. Agueda Jones
--- OUTSIDE RECORDS SUMMARY | 2024-09-08 21:02 | XMS_ITS | Continuity of Care Document ---
Author Organization [facility]. Address [address] [place] [address] Social History Not on File Plan of Treatment Not on file
--- OUTSIDE RECORDS SUMMARY | 2024-09-08 21:02 | XMS_ITS | Continuity of Care Document ---
Author Organization [facility]ology Address [address] [place] [address] Care Team Providers Care Manager Of Construction Name Role Phone ADDY GONZALES General Surgeon CARLOS A COATS Primary Care Provider VERONIKA RIVER Hoe Worker [phone] Assessment No assessment recorded. Plan of Treatment Reminders Order Date Submit Date Provider Last Modified By Organization Details Last Modified Time Details Appointments None recorded. Lab carcinoembr yonic Ag, quant, serum or plasma 2024 025 [email or web address] 6 [facility], [address] [place], [address], 5 09:15:18 CMP, serum or plasma 2024 025 [facility], [address] [place], [address], 5 12:45:09 CBC w/ diff 2024 025 [email or web address] 6 [facility], [address] [place], [address], 5 09:15:18 iron + TIBC + ferritin, serum 2024 025 [email or web address] 6 [facility], [address] [place], [address], 5 09:15:18 iron saturation, serum 2024 025 [email or web address] 6 [facility], [address], [place], [address], 09:15:18 Referral None recorded. Procedures None recorded. Surgeries None recorded. Imaging None recorded. Medication Orders None recorded. Patient TargetsNo targets recorded. Patient InstructionsNo instructions recorded. Reason for Referral None Reported. Results Created Date Observation Date Name Description Value Unit Range Abnormal Flag Note LastModifiedBy Organization Detail LastModifiedTime 07/28/19 25 07/28/2024 CT ABD pel w/ (IV [facility] [address] [place] [address] Phone: Fax: Name: DESHAWN MCMAHAN Exam Date: : 948 Age 78 years Gender : F Access ion: [id number] 2023 Physic jesus: [place] Facili ty: [facility] Facili ty HSV: Outpat ient Exam: CT ABD PEL W/ (IV ^ ORAL) CT ABDOME N PELVIS WITH IV CONTRA ST 2:46 PM SUPERVISOR [facility] AL INDICA TION: Female , 78 years old. malign ant neopla sm of ascend ing colon CT was perfor med with IV contra st. Dose modula tion, automa emily exposu re contro l, and/or intera tive recons tructi on techni que used for dose reduct ion. * Minima l scarri ng/ate lectas is at the lung bases. * Cardio megaly . Aortic and blackwood ry athero sclero sis. * Sia us low-de nsity lesion s within the liver, certai nly compat ible metast atic diseas e in this patien t with histor y of colon carcin rox. 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 Inferi or right hepati c lobe lesion segmen t 6 measur es 3.4 cm image 31, 3.3 cm on the prior study. * No gallst ones or bile duct dilata tion, spleen unrema rkable . * Stomac h, duoden um, pancre as, adrena l glands unrema rkable . * Severa l small low-de nsity renal lesion s, too small to charac mango fernandez compar ed to prior study. * Status post right colect haley, no findin gs of small bowel obstru ction. 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 * Status post hyster ectomy . * No pathol ogic retrop eriton eal or mesent megha adenop athy. 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 Mild scolio sis. * IMPRES WENDY: * Sia us hepati c metast asis, index lesion within segmen t 7 has increa sed in size compar ed with Februa ry 2023 Electr onical ly signed by: Rey trevino MD 2024 09:49 PM EST RP Workst ation: [id number] Dictat ed By: Rey Castaneda Transc ribed By: Transc ribed On: 025 3:46 PM Electr onical ly signed by: Rey Castaneda 025 Thank you for referr ing DESHAWN MCMAHAN to [facility]iatric[facility]. Legall y authen ticate d by VAMSHI Trevino [facility] 07-28 15:46: 13 CC'ed Logic: Orderi ng Provid er: DIGNA LUGO Attend ing Provid er: DIGNA LUGO Referr ing Provid er: DIGNA LUGO Admitt ing Provid er: DIGNA taylor[address] [place] [address] - Physical Therapy [address] [facility], [place], [address], 07/29/2024 11:36:27 08/02/19 25 07/28/2024 CT, chest , w/ contr ast [facility] [address] [place] [address] Phone: Fax: Name: DESHAWN MCMAHAN Exam Date: 025 : 948 Age 78 years Gender : F Access ion: [id number] 2023 Physic jesus: DIGNA R, [place] Facili ty: [facility] Facili ty HSV: Outpat ient Exam: CT CHEST W EXAM: CT Chest With Intrav enous Contra st CLINIC AL HISTOR Y: The patien t is 78 years old and is Female ; malign ant neopla sm of ascend ing colon TECHNI QUE: Axial comput ed tomogr aphy images of the chest with intrav enous contra st. Sagitt al and blackwood l reform atted images were create d and review ed. This CT exam was perfor med using one or more of the follow ing dose reduct ion techni ques: automa emily exposu re contro l, adjust ment of the mA and/or kV accord ing to patien t size, and/or use of iterat brown recons tructi on techni que. COMPAR LON: Junuar y 2023 CT chest. FINDIN GS: LUNGS: Calcif ied granul rox in the lingul a. No suspic ious or enlarg ing pulmon bethany nodule /mass. No consol idatio n. PLEURA L SPACE: Unrema rkable . No pneumo thorax . No signif icant effusi on. HEART: The heart is not enlarg ed. No signif icant perica rdial effusi on. Blackwood ry artery calcif icatio ns. BONES/ JOINTS : Unrema rkable . No acute fractu re. No disloc ation. SOFT TISSUE S: Unrema rkable . VASCUL ATURE: See above. LYMPH NODES: Unrema rkable . No enlarg ed lymph nodes. UPPER ABDOME N: See same day CT abdome n pelvis for findin gs below the diaphr agm. TUBES, LINES AND DEVICE S: Right chest port tip is at the cavoat rial juncti on. IMPRES WENDY: 1. No eviden ce of metast atic diseas e in the chest. 2. Blackwood ry artery calcif icatio ns. Electr onical ly signed by: Annie in Chayito mills MD 2024 10:35 AM EST RP Workst ation: [id number] Dictat ed By: Annie Villavicencio in Transc ribed By: Transc ribed On: 025 3:46 PM Electr onical ly signed by: Annie Villavicencio in 025 Thank you for referr ing DESHAWN MCMAHAN to [facility]. Legall y authen ticate d by CHAYITO ALBA IN 07-28 15:46: 34 CC'ed Logic: Orderi ng Provid er: DIGNA LUGO Attend ing Provid er: DIGNA LUGO Referr ing Provid er: DIGNA LUGO Admitt ing Provid er: DIGNA LUGO [address] - Physical Therapy [address] [facility], [place], [address], 08/01/2024 10:49:34 Result Notes None recorded. Problems Name Problem SNOMED Code Status Onset Date Resolution Date Notes Provider Name and Address Organization Details Recorded Time Headache 69254468 Active 2024 Christine yusuf, [place] - [facility] & [place] 5 10:27:12 Metastatic malignant neoplasm to liver 31807782 Active 2022 Ghassan Lieberman PA-C [address] , [place], [address] , [place] - [facility] - [place] & [place] 3 14:27:25 Mass of colon 685132042 Active 2022 Ghassan Lieberman PA-C [address] , [place], [address] , [place] - [facility] & [place] 3 14:27:30 Anemia 511285962 Active 2022 Ghassan Lieberman PA-C [address], [place], [address] , [place] - [facility] & [place] 3 14:27:36 Nausea and vomiting 93458753 Active 2022 Ghassan Lieberman PA-C [address], [place], [address] , [facility] & [place] 3 14:27:46 Unintentional weight loss 620003815 Active 2022 Ghassan Lieberman PA-C [address], [place], [address] , [facility] & [place] 3 16:13:07 Night sweats 14813875 Active 2022 Ghassna Lieberman PA-C [address], [place], [address] , [facility] & [place] 3 16:13:12 Problem Notes None recorded. Procedures Surgical History Date Name Laterality Status Provider Name and Address Organization Details Recorded Time 04/29/20 23 Venipuncture completed Parish Snider PA-C [address], [place], [address], [facility] & [place] 04/27/2023 15:05:29 04/15/20 23 Venipuncture completed Stephanie Maravilla [facility] & [place] 04/15/2023 15:24:55 hysterectomy completed Laurel Samuels [facility] & [place] 03/11/2023 15:30:22 extraction of cataract completed Laurel Samuels [facility] & [place] 03/11/2023 15:30:36 excision of colon completed Loree Tadeo [facility] & [place] 04/21/2023 11:32:07 Imaging Results None recorded. Procedure Notes None recorded. Medical Equipment None Reported. Allergies Allergen ID Allergen Name Allergen Category Reaction Reaction Severity Criticality Documentation Date Start Date Code Code System Note Provider Name and Address Organization Details Recorded Time 25459 tetracycl ine medicatio n hives Not available high 02/19/2023 34977 RxNorm [facility] [place] 3 14:03:33 Medications Name Sig Start Date Stop Date Status Note LastModified by Organization Details LastModified Time Miralax 17 gram oral powder packet Take 5 packets every day by oral route. active Not Available Not Available No t Available furosemide 40 mg tablet TAKE 1 TO 2 TABLETS BY MOUTH DAILY NEEDED FOR EDEMA active Not Available Not Available No t Available megestrol 400 mg/10 mL (40 mg/mL) oral suspension Take 10 mL every day by oral route as directed for 30 days. 2024 active Not Available Not Available Not Avai lable prednisone 10 mg tablet take 3 tablets for 3 days, 2 tablets for 3 days, then 1 tablet for 3 days 06/02 completed Not Available Not Available Not Available famotidine 10 mg tablet Take 1 tablet every day by oral route as needed. active Not Available Not Available No t Available trazodone 50 mg tablet TAKE 1 TABLET BY MOUTH EVERY DAY 08/01 completed Not Available Not Available Not Available fluconazole 150 mg tablet TAKE 1 TABLET BY MOUTH EVERY 72 HOURS FOR 3 DOSES active Not Available Not Available No t Available metoprolol succinate ER 50 mg tablet,exte nded release 24 hr TAKE 1 TABLET BY MOUTH NIGHTLY AT BEDTIME active Not Available Not Available No t Available hydrocodone 5 mg-acetamin ophen 325 mg tablet Take 1 tablet every 6 hours by oral route as needed. 2024 active Not Available Not Available Not Avai lable Nystop 100,000 unit/gram topical powder APPLY TOPICALLY TO AFFECTED AREA(S) 2 TIMES DAILY NEEDED active Not Available Not Available No t Available ondansetron HCl 8 mg tablet TAKE 1 TABLET BY MOUTH 3 TIMES A DAY active Not Available Not Available No t Available ondansetron HCl 4 mg tablet TAKE 1 TABLET BY MOUTH EVERY 6 HOURS NEEDED FOR NAUSEA AND VOMITING 06/08 completed Not Available Not Available Not Available warfarin 2.5 mg tablet TAKE 1 TABLET BY MOUTH EVERY DAY active Not Available Not Available No t Available diphenoxyla te-atropine 2.5 mg-0.025 mg tablet TAKE 1 TABLET BY MOUTH 4 TIMES A DAY NEEDED active Not Available Not Available No t Available aspirin 81 mg tablet,anastacio yed release Take 1 tablet every day by oral route as directed for 30 days. 08/01 completed Not Available Not Available Not Available acetaminoph en 500 mg tablet Take 2 tablets every 6 hours by oral route as needed. active Not Available Not Available No t Available vancomycin 125 mg capsule TAKE 1 CAPSULE BY MOUTH EVERY 6 HOURS 11/22 completed Not Available Not Available Not Available ondansetron 8 mg disintegrat ing tablet DISSOLVE 1 TABLET IN MOUTH 3 TIMES A DAY active Not Available Not Available No t Available lidocaine-p rilocaine 2.5 %-2.5 % topical cream APPLY TOPICALLY TO AFFECTED AREA(S) DAILY NEEDED FOR NEEDLE INSERTION active Not Available Not Available No t Available famotidine 20 mg tablet TAKE 1 TABLET BY MOUTH 2 TIMES A DAY active Not Available Not Available No t Available magnesium oxide 400 mg (241.3 mg magnesium) tablet TAKE 1 TABLET BY MOUTH EVERY DAY DIRECTED 2023 active Not Available Not Available Not Avai lable metoclopram sue 5 mg tablet TAKE 1 TABLET BY MOUTH 3 TIMES A DAY NEEDED active Not Available Not Available No t Available meclizine 25 mg tablet Take 1 tablet 3 times a day by oral route as needed. active Not Available Not Available No t Available hydrocodone 7.5 mg-acetamin ophen 325 mg tablet Take 1 tablet every 4-6 hours by oral route as needed. 2024 active Not Available Not Available Not Avai lable mirtazapine 30 mg tablet TAKE 1 TABLET BY MOUTH EVERY DAY DIRECTED 08/01 completed Not Available Not Available Not Available ropinirole 0.5 mg tablet TAKE 1 TABLET BY MOUTH 3 TIMES A DAY active Not Available Not Available No t Available promethazin e 25 mg tablet TAKE 1 TABLET BY MOUTH EVERY 4 HOURS NEEDED for 30 days 06/08 completed Not Available Not Available Not Available polymyxin B sulfate 10,000 unit-trimet hoprim 1 mg/mL eye drops INSTILL 1 DROP INTO AFFECTED EYE(S) EVERY 6 HOURS 12/06 completed Not Available Not Available Not Available warfarin 5 mg tablet TAKE 1 TABLET BY MOUTH EVERY DAY 08/01 completed Not Available Not Available Not Available folic acid 1 mg tablet TAKE 1 TABLET BY MOUTH EVERY DAY 2023 active Not Available Not Available Not Avai lable furosemide 20 mg tablet TAKE 1 TABLET BY MOUTH EVERY DAY NEEDED 08/01 completed Not Available Not Available Not Available mirtazapine 15 mg tablet TAKE 1 TABLET BY MOUTH EVERY DAY 12/06 completed Not Available Not Available Not Available lorazepam 1 mg tablet TAKE 1 TABLET BY MOUTH 3 TIMES A DAY NEEDED FOR NAUSEA active Not Available Not Available No t Available ibuprofen 600 mg tablet TAKE 1 TABLET BY MOUTH EVERY 6 HOURS NEEDED FOR MODERATE PAIN 4 TO 6 PAIN SCALE 12/06 completed Not Available Not Available Not Available scopolamine 1 mg over 3 days transdermal patch Apply 1 patch every 72 hours by transderm al route for 30 days. 08/01 completed Not Available Not Available Not Available morphine 15 mg immediate release tablet TAKE 1 TABLET BY MOUTH EVERY 3 TO 4 HOURS NEEDED active Not Available Not Available No t Available ondansetron 4 mg disintegrat ing tablet DISSOLVE 1 TABLET ON TONGUE EVERY 6 HOURS NEEDED FOR NAUSEA AND VOMITING FOR 5 DAYS 06/08 completed Not Available Not Available Not Available cefdinir 300 mg capsule TAKE 1 CAPSULE BY MOUTH 2 TIMES A DAY 06/02 completed Not Available Not Available Not Available amoxicillin 500 mg-potassiu m clavulanate 125 mg tablet TAKE 1 TABLET BY MOUTH 2 TIMES A DAY 08/01 completed Not Available Not Available Not Available oxycodone 5 mg tablet TAKE 1 TABLET BY MOUTH EVERY 6 TO 8 HOURS 12/06 completed Not Available Not Available Not Available bisacodyl 5 mg tablet Take 1 tablet twice a day by oral route. active Not Available Not Available No t Available Jantoven 1 mg tablet TAKE 1 TABLET BY MOUTH EVERY DAY OR DIRECTED active Not Available Not Available No t Available nitrofurant oin monohydrate /macrocryst als 100 mg capsule TAKE 1 CAPSULE BY MOUTH EVERY 12 HOURS UNTIL GONE 04/15 completed Not Available Not Available Not Available duloxetine 30 mg capsule,del ayed release TAKE 1 CAPSULE BY MOUTH EVERY DAY active Not Available Not Available No t Available Pepcid 03/10 completed Not Available Not Available Not Available meclizine 03/10 completed Not Available Not Available Not Available Triple Antibiotic 3.5 mg-400 unit-5,000 unit topical ointment packet Apply 1 applicati on 3 times a day by topical route. 2023 active Not Available Not Available Not Avai lable Eliquis 5 mg tablet TAKE 1 TABLET BY MOUTH 2 TIMES A DAY 08/01 completed Not Available Not Available Not Available potassium chloride ER 20 mEq tablet,exte nded release TAKE 1 TABLET BY MOUTH EVERY DAY DIRECTED active Not Available Not Available No t Available Vitals Date Recorded Body height Body mass index (BMI) Body weight Body temperature Oxygen saturation Oxygen saturation in Arterial blood by Pulse oximetry Heart rate Respiratory rate Systolic blood pressure Diastolic blood pressure Provider Name and Address Organization Details Last Updated DateTime 5 162.56 cm 36.8 kg/m2 07834.8 4 g 98.1 [degF] 99 % 99 % 60 /min 20 /min 100 mm[Hg] 51 mm[Hg] Akilah Stump [facility] & [place] 5 10:52:06 Social History Question Answer Notes LastModified by Organizat ion Details LastModified Time Tobacco Smoking Status Never Smoker Brandy Maciel [facility] & [place] 02/19/2023 14:02:59 What Is Your Level Of Alcohol Consumption? None [email or web address] Information not available 02/19/2023 What Is Your Level Of Caffeine Consumption? None [email or web address] Information not available 02/19/2023 What Was The Date Of Your Most Recent Tobacco Screening? 11/23/2023 [email or web address] Information not available 11/23/2023 Do You Use Any Illicit Or Recreational Drugs? No Information not available 02/19/2023 Has Tobacco Cessation Counseling Been Provided? No [email or web address] Information not available 07/13/2023 Do You Or Have You Ever Used Any Other Forms Of Tobacco Or Nicotine? No [email or web address] Information not available 02/19/2023 Sex: Unknown Functional Status None recorded. Mental Status None recorded. Family History Nothing Reported. Medical History No medical history recorded. Gynecological HistoryNo gynecological history recorded. Obstetrics History GPAL:G 0 P 0 0 0 0 Immunizations Vaccine Type Date Status Note Provider Nam e and Address Organization Details Recorded Time pneumococcal polysaccharide PPV23 7 completed Stephanie Maravilla paramjit [facility] & [place] 12/21/2023 09:56:34 Past Encounters Encounter ID Performer Location Encounter Start Date Encounter Closed Date Diagnosis/Indication Diagnosis SNOMED-CT Code Diagnosis ICD10 Code Diagnosis Note [id number] Parish Snider PA-C [facility] [address] [place] [address] 06/27/2024 09:58:37 06/27/2024 10:53:58 Malignant tumor of ascending colon 269251564 C18.2 CT scan of the abdomen and pelvis performed on February 17, 2023 with multiple large ill-define d heterogene ous masses in the liver. Largest mass measures 6.7 x 4.5 cm. Masses seen throughout both lobes of the liver consistent with metastasis . Spleen is unremarkab le. Kidneys without abnormalit y. Thickening of the ascending colon concerning for underlying mass. Findings concerning for metastatic colon cancer. Colonoscop y recommende d. CT scan of the chest performed on February 17, 2023 with no evidence of lung nodule. No evidence of mass or abnormalit y. Labs on March 11, 2023 with white blood cell count 12.9 red blood count 4.3. Hemoglobin 8.2 hematocrit 29.0. MCV 67.9. Platelet count 102229. Normal cell differenti al. Low serum folate of 5.0. B12 normal. Serum iron low at 10 and iron saturation low at 4%. Serum ferritin 171. CEA at 370. Tempus peripheral blood sample with findings of PI3K mutation at Exon 4. B Francis mutation seen at 1.4%. APC mutation and TP53 mutation seen. Microsatel lite instabilit y not detected. Review from pathology of tumor sample pending. Patient had increasing abdominal distension and nausea patient was taken for right hemicolect haley and anastomosi s on April 06, 2023.Patho logy from April 06, 2023 with invasive moderately differenti ated adenocarci noma. PT4a pN1b pM1 a. Metastatic adenocarci noma in 2/10 lymph nodes. Wedge resection of the liver with metastatic adenocarci noma consistent with colon primary. CT scan of the chest abdomen pelvis on May 06, 2024 with comparison made imaging from February 17, 2024. No mediastina l or hilar lymphadeno esperanza. No suspicious lung nodules. Similar distributi on multiple liver lesions compatible with metastatic disease. Lesion in segment 7 measures 3.9 x 3.0 cm. Previously 3.6 x 2.6 cm. Lesion in segment 6 2.7 cm and previously 1.8 cm. No new liver lesions. Similar distributi on however slightly enlarged liver lesions. Patient returns on May 16, 2024. Vectibix held last cycle due to conjunctiv itis. Slight decline again of CEA. Based on labs from May 02, 2024. Will follow trend. Would be reasonable to repeat molecular profiling in the event patient has further enlargemen t of liver lesions. Will follow-up labs. Patient returns on June 27, 2024. Patient was hospitaliz ed June 09, 2024 with UTI. She had a stable CT of the chest abdomen pelvis at that time. Stable hepatic metastasis that time. No new lesions. Since previous visit patient has been diagnosed with congestive heart failure and atrial fibrillati on. She has been started on Coumadin. She is following with the Coumadin clinic at [facility]. She is scheduled for cardiac MRI. Patient does feel weak but she is regaining her strength. She is ready to start back on 5 FU and Leucovorin today. Her eyes and rash have cleared but she would like to hold on Vectibix this week since she does still feel a little weak. Will resume with next treatment. Patient received Vectibix last cycle. She developed a rash consistent with candidiasi s under her breast, in the groin area, and axilla. Rash has resolved. Patient has had intermitte nt nausea, vomiting, and decreased appetite. Discussed appetite stimulant if needed. She has starting taking Zofran and this does help. Will order CEA today. If this continue to increase will order follow up imaging. Will follow-up. Will follow up labs. Metastatic malignant neoplasm to liver 17452976 C78.7 CT scan of the abdomen and pelvis performed on February 17, 2023 with multiple large ill-define d heterogene ous masses in the liver. Largest mass measures 6.7 x 4.5 cm. Masses seen throughout both lobes of the liver consistent with metastasis . Spleen is unremarkab le. Kidneys without abnormalit y. Thickening of the ascending colon concerning for underlying mass. Findings concerning for metastatic colon cancer. Nausea 583030517 R11.0 As needed Zofran and Phenergan prescribed . Discussed trying scopolamin e patches but her insurance wouldn't cover. Pain due t o neoplastic disease [id number] 9102 G89.3 Right upper quadrant pain secondary to liver metastasis . Patient currently taking Tylenol. Discussed as needed oxycodone to limit Tylenol exposure. Anemia 785043363 D64.9 Right-side d colon mass concerning for malignancy . Will assess for any signs of iron deficiency . Most recent hemoglobin at 8.0. Concern for blood loss from colon mass. Patient reports dark stools. Adopted 991303612 Z62.89 8 Patient is adopted and discussed hereditary gene panel. Patient does have family history of her son having bladder cancer. Will send Pooja hereditary panel. Antineopla stic chemotherapy regimen 302899644 Z51.11 Week 1 5FU Leucovorin Vectibix on April 29, 2023.Week 2 5FU Leucovorin Vectibix on May 04, 2023.Week 3 5FU Leucovorin Vectibix on May 11, 2023.Week 4 5FU Leucovorin and Vectibix on June 08, 2023.Day 29 of 5FU Leucovorin and Vectibix on June 22, 2023. Cycle 2 of 5FU Leucovorin and Vectibix on July 13, 2023.Cycle 3 of 5FU Leucovorin and Vectibix on July 27, 2023.Cycle 4 of 5FU Leucovorin and Vectibix on August 10, 2023.Cycle 5 of 5FU Leucovorin and Vectibix on August 24, 2023. Cycle 6 of 5FU Leucovorin without Vectibix on September 07, 2023. Cycle 7 of 5FU Leucovorin with Vectibix on September 21, 2023. Previous dose held secondary to conjunctiv itis. Cycle 8 of 5FU Leucovorin and Vectibix on October 05, 2023. Will hold Vectibix today due to irritation of membranes of the eyes bilaterall y.Cycle 9 of 5FU Leucovorin with Vectibix on October 19, 2023.Cycle 10 of 5FU Leucovorin with Vectibix on November 02, 2023.Cycle 11 of 5FU Leucovorin with Vectibix on November 23, 2023.Cycle 12 of 5FU Leucovorin with Vectibix on December 07, 2023.Cycle 13 of 5FU Leucovorin with Vectibix on November 21, 2023.Cycle 14 of 5FU Leucovorin with Vectibix on January 04, 2024.Cycle 15 of 5FU Leucovorin with Vectibix on January 25, 2024.Cycle 16 of 5FU Leucovorin without Vectibix on February 08, 2024.Cycle 17 of 5FU Leucovorin with Vectibix on February 22, 2024.Cycle 18 of 5FU Leucovorin with Vectibix on March 07, 2024.Cycle 19 of 5FU Leucovorin with Vectibix on March 21, 2024.Cycle 20 of 5FU Leucovorin without Vectibix on April 04, 2024.Cycle 21 of 5FU Leucovorin with Vectibix on April 18, 2024.Cycle 22 of 5FU Leucovorin without Vectibix on May 02, 2024.Cycle 23 of 5FU Leucovorin on May 16, 2024. Vectibix resumed.Cy ting 24 of 5FU Leucovorin on May 30, 2024. Patient will receive Vectibix today.Cycl e 2 of 5FU Leucovorin on June 27, 2024. Patient will receive not Vectibix today. Hypokalemia [id number] E87 .6 Patient returns on April 29, 2023. Potassium is low at 2.9. Will send prescripti on for potassium 20 mEq daily. Will follow-up labs again next week. Deep venou s thrombosis [id number] I82.409 Patient developed right lower extremity pain and edema.Veno us duplex on May 28, 2023 with evidence of deep vein thrombosis . Started on Eliquis 5 mg 1 tab p.o. b.i.d.. Did not start with Eliquis starter pack due to recent bleeding. Patient had a DVT and a PE in 1990 after her hysterecto my.Clot resolution on repeat venous duplex. 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 Patient is struggling with anxiety and depression . She has had some recent deaths in the family. Patient is tearful during her visit today. She also has insomnia. She is taking Mirtazapin e 15 mg daily and lorazepam as needed. Offered referral to therapist but patient declines at this time. Patient tried Mirtazapin e without relief for insomnia. She is no longer taking it. Patient returns on April 04, 2024. Patient is tearful and crying during her visit today. She states her son has been diagnosed with bladder cancer. Patient with anxiety and depression . Discussed antidepres melina. Patient agreeable Will send prescripti on for Cymbalta. Atopic conjunctivitis 23 [id number] H10.12 Patient with conjunctiv itis of the left eye. Held Vectibix on December 07, 2023. Continue with current therapy. Will follow up again in 2 weeks. Iron defic iency anemia [id number] D50.9 Will follow up labs Insomnia [id number] G47.0 0 Patient returns on February 08, 2024. She has had difficulty sleeping for most of her life. She has tried multiple medication s without relief. She is tried Mirtazapin e and lorazepam without improvemen t of insomnia. Discussed trying trazodone instead. Will send prescripti on. Will send prescripti on for Requip for restless legs. Restless legs [id number] G 25.81 Patient returns on February 08, 2024. She has had difficulty sleeping for most of her life. She has tried multiple medication s without relief. She is tried Mirtazapin e and lorazepam without improvemen t of insomnia. Discussed trying trazodone instead. Prescripti on sent for Requip for restless legs. Candidiasis of skin [id number] 3006 B37.2 Patient returns on May 30, 2024. Patient received Vectibix last cycle. She does have a rash consistent with candidiasi s under her breast, in the groin area, and axilla. Rash is non pruritic. She has had this rash in the past and it has resolved with Diflucan. Will send prescripti on for nystatin cream and Diflucan. Patient instructed to try to keep the area dry. Will follow-up. Cadidiasis has resolved since patient has not received Vectibix. Generalized rash [id number] 06 R21 Patient returns on May 30, 2024. Patient received Vectibix last cycle. She does have a rash consistent with candidiasi s under her breast, in the groin area, and axilla. Rash is non pruritic. She has had this rash in the past and it has resolved with Diflucan. Will send prescripti on for nystatin cream and Diflucan. Patient instructed to try to keep the area dry. Will follow-up. Rash has resolved since patient has not received Vectibix. Atrial fibrillation 4943 6004 I48.91 Patient returns on June 27, 2024. Since previous visit patient has been diagnosed with congestive heart failure and atrial fibrillati on. She has been started on Coumadin. She is following with the Coumadin clinic at [facility]. Congestive heart failure [id number] I50.9 Patient returns on June 27, 2024. Since previous visit patient has been diagnosed with congestive heart failure and atrial fibrillati on. She has started lasix and is following with a cardiologi st. [id number] Parish Snider PA-C [facility] [address] [place] [address] 07/11/2024 09:55:48 07/11/2024 10:53:23 Malignant tumor of ascending colon [id number] C18.2 CT scan of the abdomen and pelvis performed on February 17, 2023 with multiple large ill-define d heterogene ous masses in the liver. Largest mass measures 6.7 x 4.5 cm. Masses seen throughout both lobes of the liver consistent with metastasis . Spleen is unremarkab le. Kidneys without abnormalit y. Thickening of the ascending colon concerning for underlying mass. Findings concerning for metastatic colon cancer. Colonoscop y recommende d. CT scan of the chest performed on February 17, 2023 with no evidence of lung nodule. No evidence of mass or abnormalit y. Labs on March 11, 2023 with white blood cell count 12.9 red blood count 4.3. Hemoglobin 8.2 hematocrit 29.0. MCV 67.9. Platelet count 958405. Normal cell differenti al. Low serum folate of 5.0. B12 normal. Serum iron low at 10 and iron saturation low at 4%. Serum ferritin 171. CEA at 370. Tempus peripheral blood sample with findings of PI3K mutation at Exon 4. B Francis mutation seen at 1.4%. APC mutation and TP53 mutation seen. Microsatel lite instabilit y not detected. Review from pathology of tumor sample pending. Patient had increasing abdominal distension and nausea patient was taken for right hemicolect haley and anastomosi s on April 06, 2023.Patho logy from April 06, 2023 with invasive moderately differenti ated adenocarci noma. PT4a pN1b pM1 a. Metastatic adenocarci noma in 2/10 lymph nodes. Wedge resection of the liver with metastatic adenocarci noma consistent with colon primary. CT scan of the chest abdomen pelvis on May 06, 2024 with comparison made imaging from February 17, 2024. No mediastina l or hilar lymphadeno esperanza. No suspicious lung nodules. Similar distributi on multiple liver lesions compatible with metastatic disease. Lesion in segment 7 measures 3.9 x 3.0 cm. Previously 3.6 x 2.6 cm. Lesion in segment 6 2.7 cm and previously 1.8 cm. No new liver lesions. Similar distributi on however slightly enlarged liver lesions. Patient returns on May 16, 2024. Vectibix held last cycle due to conjunctiv itis. Slight decline again of CEA. Based on labs from May 02, 2024. Will follow trend. Would be reasonable to repeat molecular profiling in the event patient has further enlargemen t of liver lesions. Will follow-up labs. Patient returns on July 11, 2024. Patient is scheduled for follow up imaging but is going to try to reschedule the scan for next week due to the snow were supposed to get. She lives about [place] half away so it is difficult for her to traveling bad weather. Patient is feeling fatigued. She has had more pain in her right upper quadrant around to her back. She is taking hydrocodon e 7.5 mg every 4-6 hours as needed. Discussed increasing dose to 10 mg every 4-6 hours as needed. She will receive 5 FU, Leucovorin , and Vectibix today. Her eyes and rash have cleared. She previously developed a rash consistent with candidiasi s under her breast, in the groin area, and axilla. Rash has resolved. Patient has had intermitte nt nausea, vomiting, and decreased appetite. Discussed appetite stimulant if needed. Patient declines to take appetite stimulant at this time. She has starting taking Zofran and this does help. Will order CEA today. Patient is starting to feel tired and worn down. Discussed with patient will follow-up imaging. Discussed based on imaging findings can discuss if patient wants to continue with chemothera py versus palliative care. She wishes to continue with chemo at this time. Will follow-up. Will follow up labs. Metastatic malignant neoplasm to liver [id number] C78.7 CT scan of the abdomen and pelvis performed on February 17, 2023 with multiple large ill-define d heterogene ous masses in the liver. Largest mass measures 6.7 x 4.5 cm. Masses seen throughout both lobes of the liver consistent with metastasis . Spleen is unremarkab le. Kidneys without abnormalit y. Thickening of the ascending colon concerning for underlying mass. Findings concerning for metastatic colon cancer. Nausea [id number] R11.0 As needed Zofran and Phenergan prescribed . Discussed trying scopolamin e patches but her insurance wouldn't cover. She is taking Zofran with relief. Pain due t o neoplastic disease [id number] 9102 G89.3 She is taking hydrocodon e 7.5 mg b.i.d. Discussed taking medication every 4-6 hours as needed. Anemia 991431700 D64.9 Right-side d colon mass concerning for malignancy . Will assess for any signs of iron deficiency . Most recent hemoglobin at 8.0. Concern for blood loss from colon mass. Patient reports dark stools. Adopted [id number] Z62.89 8 Patient is adopted and discussed hereditary gene panel. Patient does have family history of her son having bladder cancer. Will send [facility] hereditary panel. Antineopla stic chemotherapy regimen [id number] Z51.11 Week 1 5FU Leucovorin Vectibix on April 29, 2023.Week 2 5FU Leucovorin Vectibix on May 04, 2023.Week 3 5FU Leucovorin Vectibix on May 11, 2023.Week 4 5FU Leucovorin and Vectibix on June 08, 2023.Day 29 of 5FU Leucovorin and Vectibix on June 22, 2023. Cycle 2 of 5FU Leucovorin and Vectibix on July 13, 2023.Cycle 3 of 5FU Leucovorin and Vectibix on July 27, 2023.Cycle 4 of 5FU Leucovorin and Vectibix on August 10, 2023.Cycle 5 of 5FU Leucovorin and Vectibix on August 24, 2023. Cycle 6 of 5FU Leucovorin without Vectibix on September 07, 2023. Cycle 7 of 5FU Leucovorin with Vectibix on September 21, 2023. Previous dose held secondary to conjunctiv itis. Cycle 8 of 5FU Leucovorin and Vectibix on October 05, 2023. Will hold Vectibix today due to irritation of membranes of the eyes bilaterall y.Cycle 9 of 5FU Leucovorin with Vectibix on October 19, 2023.Cycle 10 of 5FU Leucovorin with Vectibix on November 02, 2023.Cycle 11 of 5FU Leucovorin with Vectibix on November 23, 2023.Cycle 12 of 5FU Leucovorin with Vectibix on December 07, 2023.Cycle 13 of 5FU Leucovorin with Vectibix on November 21, 2023.Cycle 14 of 5FU Leucovorin with Vectibix on January 04, 2024.Cycle 15 of 5FU Leucovorin with Vectibix on January 25, 2024.Cycle 16 of 5FU Leucovorin without Vectibix on February 08, 2024.Cycle 17 of 5FU Leucovorin with Vectibix on February 22, 2024.Cycle 18 of 5FU Leucovorin with Vectibix on March 07, 2024.Cycle 19 of 5FU Leucovorin with Vectibix on March 21, 2024.Cycle 20 of 5FU Leucovorin without Vectibix on April 04, 2024.Cycle 21 of 5FU Leucovorin with Vectibix on April 18, 2024.Cycle 22 of 5FU Leucovorin without Vectibix on May 02, 2024.Cycle 23 of 5FU Leucovorin on May 16, 2024. Vectibix resumed.Cy ting 24 of 5FU Leucovorin on May 30, 2024. Patient will receive Vectibix today.Cycl e 25 of 5FU Leucovorin on June 27, 2024. Patient will receive not Vectibix today.Cycl e 26 of 5FU Leucovorin on July 20, 2024. Patient will receive Vectibix today. Hypokalemia 65426088 E87 .6 Patient returns on April 29, 2023. Potassium is low at 2.9. Will send prescripti on for potassium 20 mEq daily. Will follow-up labs again next week. Deep venou s thrombosis [id number] I82.409 Patient developed right lower extremity pain and edema.Veno us duplex on May 28, 2023 with evidence of deep vein thrombosis . Started on Eliquis 5 mg 1 tab p.o. b.i.d.. Did not start with Eliquis starter pack due to recent bleeding. Patient had a DVT and a PE in 1990 after her hysterecto my.Clot resolution on repeat venous duplex. Mixed anxi ety and depressive disorder [id number] F41.8 Patient returns on November 23, 2023. Patient is struggling with anxiety and depression . She has had some recent deaths in the family. Patient is tearful during her visit today. She also has insomnia. She is taking Mirtazapin e 15 mg daily and lorazepam as needed. Offered referral to therapist but patient declines at this time. Patient tried Mirtazapin e without relief for insomnia. She is no longer taking it. Patient returns on April 04, 2024. Patient is tearful and crying during her visit today. She states her son has been diagnosed with bladder cancer. Patient with anxiety and depression . Discussed antidepres melina. Patient agreeable Will send prescripti on for Cymbalta. Atopic conjunctivitis 23 0256453 H10.12 Patient with conjunctiv itis of the left eye. Held Vectibix on December 07, 2023. Continue with current therapy. Will follow up again in 2 weeks. Iron defic iency anemia 45479425 D50.9 Will follow up labs Insomnia [id number] G47.0 0 Patient returns on February 08, 2024. She has had difficulty sleeping for most of her life. She has tried multiple medication s without relief. She is tried Mirtazapin e and lorazepam without improvemen t of insomnia. Discussed trying trazodone instead. Will send prescripti on. Will send prescripti on for Requip for restless legs. Restless legs 51595286 G 25.81 Patient returns on February 08, 2024. She has had difficulty sleeping for most of her life. She has tried multiple medication s without relief. She is tried Mirtazapin e and lorazepam without improvemen t of insomnia. Discussed trying trazodone instead. Prescripti on sent for Requip for restless legs. Candidiasis of skin 4988 3006 B37.2 Patient returns on May 30, 2024. Patient received Vectibix last cycle. She does have a rash consistent with candidiasi s under her breast, in the groin area, and axilla. Rash is non pruritic. She has had this rash in the past and it has resolved with Diflucan. Will send prescripti on for nystatin cream and Diflucan. Patient instructed to try to keep the area dry. Will follow-up. Cadidiasis has resolved since patient has not received Vectibix. Generalized rash 5309148 06 R21 Patient returns on May 30, 2024. Patient received Vectibix last cycle. She does have a rash consistent with candidiasi s under her breast, in the groin area, and axilla. Rash is non pruritic. She has had this rash in the past and it has resolved with Diflucan. Will send prescripti on for nystatin cream and Diflucan. Patient instructed to try to keep the area dry. Will follow-up. Rash has resolved since patient has not received Vectibix. Atrial fibrillation 4943 6004 I48.91 Patient returns on June 27, 2024. Since previous visit patient has been diagnosed with congestive heart failure and atrial fibrillati on. She has been started on Coumadin. She is following with the Coumadin clinic at [facility]. Congestive heart failure 38509548 I50.9 Patient returns on June 27, 2024. Since previous visit patient has been diagnosed with congestive heart failure and atrial fibrillati on. She has started lasix and is following with a cardiologi st. [id number] Jana España MD [facility] [address] [place] [address] 07/06/2024 10:53:43 07/08/2024 03:53:47 Seen by palliative care service [id number] Z51.5 Introduced services today. Dtr and son would be NOK - she feels important to start thinking about completion of LW/AD- I provided copies today and [facility] and will plan to f/u on this is two weeks. Encouraged her to think about HCS/code status. Still wants to continue chemo and has scans next week - did not discuss hospice, but eligible at any point Pain due t o neoplastic disease [id number] 9102 G89.3 Uncontroll ed, had lortab prescribed which manages pain well when she takes medication . Encouraged adherence. Mixed anxi ety and depressive disorder 435112958 F41.8 Uncontroll ed. Not taking cymbalta. Encouraged adherence and PRN ativan for breakthrou gh syptoms. Did not wish to pursue CBt at this time, will d/w [facility] for additional support options moving forward Nausea and vomiting 1692 1999 R11.2 Related to malignancy vs. Chemo. Improved with PRN and qAM zofran, likely related to chemo vs. malignancy Loss of appetite 5712166 6 R63.0 Related to malignancy . Not taking mirtazapin e. Does not want to add additional Rx at this itme or see nutritioni st. Health Concerns Section Related Observation LastModified by Organization Detai ls LastModified Time None Recorded Concern Status LastModified by Organization Details LastModified Time None Recorded Payers Encounter Date Sequence Insurance Name Policy Number Policy Bell Covered Member ID Bell Member ID Guarantor Name 07/11/2024 1 [place] Deshawn Roblero [id number] Deshawn Roblero 07/11/2024 2 [employer] (MEDICARE SUPPLEMENT) Deshawn Roblero [id number] Deshawn Roblero Notes Date Note Type Note Provider Name and Address Organization Details Recorded Time 07/11/2024 text/html 78 yo F returns for evaluation of metastatic colon cancer. Patient recently seen on February 17, 2023 in the emergency room at [facility] with abdominal pain. Patient reported epigastric pain nausea and vomiting as well as a [address] scan of the abdomen and pelvis performed on February 17, 2023 with multiple large ill-defined heterogeneous masses in the liver. Largest mass measures 6.7 x 4.5 cm. Masses seen throughout both lobes of the liver consistent with metastasis. Spleen is unremarkable. Kidneys without abnormality. Thickening of the ascending colon concerning for underlying mass. Findings concerning for metastatic colon cancer. Colonoscopy recommended. CT scan of the chest performed on February 17, 2023 with no evidence of lung nodule. No evidence of mass or abnormality. Colonoscopy performed on March 03, 2023 with mass seen in the ascending colon. Infiltrating mass seen circumferentially in the ascending colon. Mass causing partial bowel obstruction. Colonoscope could not traverse lesion and exam could not be finished. Biopsies taken from colonoscopy on March 03, 2023 with findings tubulovillous adenoma as well as tubular adenoma. No evidence of high-grade dysplasia. Tissue sampling at time of colonoscopy without evidence of invasive carcinoma. Labs on March 11, 2023 with white blood cell count 12.9 red blood count 4.3. Hemoglobin 8.2 hematocrit 29.0. MCV 67.9. Platelet count 380236. Normal cell differential. Low serum folate of 5.0. B12 normal. Serum iron low at 10 and iron saturation low at 4%. Serum ferritin 171. CEA at 370. Tempus peripheral blood sample with findings of PI3K mutation at Exon 4. B Francis mutation seen at 1.4%. APC mutation and TP53 mutation seen. Microsatellite instability not detected. Review from pathology of tumor sample pending. Patient had increasing abdominal distention and nausea patient was taken for right hemicolectomy and anastomosis on April 06, 2023.Pathology from April 06, 2023 with invasive moderately differentiated adenocarcinoma. PT4a pN1b pM1 a. Metastatic adenocarcinoma in 2/10 lymph nodes. Wedge resection of the liver with metastatic adenocarcinoma consistent with colon primary. Patient unfortunately with metastatic colorectal cancer. Discussed chemotherapy with [place] based regimen with 5FU Leucovorin if KRAS wild type would also add Vectibix to therapy. Will follow-up. Patient developed right lower extremity pain and edema. Venous duplex on May 28, 2023 with evidence of deep vein thrombosis. Started on Eliquis 5 mg 1 tab p.o. b.i.d.. Did not start with Eliquis starter pack due to recent bleeding. Patient had a DVT and a PE in 1990 after her hysterectomy. Will order hypercoagulable panel today. Patient returns on June 02, 2023. Patient has been treated for C diff and she no longer has diarrhea. She has had increased anxiety. She is tearful and crying during her visit today due to all of her health problems. She does not want to take an antidepressant at this time. Discussed low-dose Ativan. Patient was scheduled for port placement but this was postponed since patient was dehydrated and she had severe diarrhea due to C diff. This has not been rescheduled. Labs on June 02, 2023 with CEA at 21.9.Hemoglobin at 10.3 with normal iron studies.Previous CT scan on May 18, 2023 with 5.3 cm lesion in the liver right lobe. Decrease in size from previous imaging prior to starting chemotherapy. Patient had venous duplex of the right lower extremity on May 28, 2023. Patient had deep venous thrombosis of the superficial femoral, popliteal vein, and posterior tibial veins as well as peroneal veins consistent with deep venous thrombosis. Patient was started on Eliquis. Patient seen on June 05, 2023 by General surgery for Port-A-Cath placement. Patient recently started on Eliquis due to right lower extremity deep venous thrombosis. Consideration for holding on Port-A-Cath placement for a few weeks to allow patient to be off anticoagulation for Port-A-Cath placement. Patient returns on June 08, 2023. Consideration for continued 5FU Leucovorin with Vectibix. If difficulty with access. Can wait for port placement in the next few weeks. Labs on June 08, 2023 with white blood cell count 7.5. Red blood count 4.1. Hemoglobin 10.6 and hematocrit 35.2. MCV 86.7. Factor 2 DNA analysis negative for mutation. Factor 5 Leiden gene mutation testing negative. Factor 8 activity level at 250%. CEA at 21.6. Patient returns on June 22, 2023 which would be day 29 5FU Leucovorin and Vectibix. Will have the patient come back in 2 weeks to start next cycle of therapy. Patient returns on July 13, 2023 for day 1 of next cycle of 5FU Leucovorin and Vectibix. Would continue on every 2 week dosing as the patient is tolerating and difficult vascular access. Continued decline in CEA. Will repeat imaging prior to next visit. Will reassess if can stop Eliquis. Patient with prior history of venous thromboembolism prior to right lower extremity venous duplex on May 28, 2023. Will follow-up repeat imaging and reassess if anticoagulation can be changed. Plan to see the patient back in 2 weeks for next dose of 5FU Leucovorin and Vectibix. Will continue on every 2 week dosing for now. CT scan of the abdomen and pelvis on July 27, 2023 with multiple liver lesions seen however most are smaller in size. Largest lesions have continued improved by about 2 cm. Would continue with current therapy. No new lesions. Venous duplex on August 03, 2023 with extensive right lower extremity DVT. Will continue with Eliquis. Patient returned for follow-up on September 07, 2023. Patient continues to have irritation of the eyes secondary to chemotherapy. The left is worse than the right. She is using eye drops without much improvement. Will hold Vectibix today to see if any improvement. Will follow-up. Venous duplex on October 20, 2023 with no evidence of right lower extremity DVT. Clot resolution. Discontinued Eliquis. Started aspirin 81 mg p.o. daily. Stable CT of chest, abdomen, and pelvis on November 05, 2023. Patient returns on November 23, 2023. Continued improvement in CEA. Significant improvement of irritation of membranes of the eyes bilaterally. Patient will receive Vectibix today on November 23, 2023 since eyes have improved. Patient has had a Port-A-Cath since visit. Patient is struggling with anxiety and depression. She has had some recent deaths in the family. Patient is tearful during her visit today. She also has insomnia. She is taking Mirtazapine 15 mg daily and lorazepam as needed. Offered referral to therapist but patient declines at this time. Will increase Mirtazapine dose to 30 mg daily. Labs on November 23, 2023 with CEA at 7.4. Continued decline in lab value. CT scan of the chest abdomen pelvis on November 05, 2023 with multiple low-density liver lesions that are unchanged from prior study in July 2023. No evidence of worsening disease. Stable hepatic metastasis. Patient returns on May 02, 2024. Labs on April 18, 2024 with CEA at 32.7. she is scheduled for follow-up imaging on May 06, 2024. She mentioned she has had increased right upper quadrant pain. This is controlled with her current pain medications. Patient has had a decreased appetite. Discussed could try an appetite stimulant if needed. Patient with anxiety and depression recently started Cymbalta. She has less anxiety and depression since starting this. Will follow up labs today. CT scan of the chest abdomen pelvis on May 06, 2024 with comparison made imaging from February 17, 2024. No mediastinal or hilar lymphadenopathy. No suspicious lung nodules. Similar distribution multiple liver lesions compatible with metastatic disease. Lesion in segment 7 measures 3.9 x 3.0 cm. Previously 3.6 x 2.6 cm. Lesion in segment 6 2.7 cm and previously 1.8 cm. No new liver lesions. Similar distribution however slightly enlarged liver lesions. Slight decline again of CEA. Based on labs from May 02, 2024. Will follow trend. Would be reasonable to repeat molecular profiling in the event patient has further enlargement of liver lesions. Patient was hospitalized June 09, 2024 with UTI. She had a stable CT of the chest abdomen pelvis at that time. Stable hepatic metastasis that time. No new lesions. Since previous visit patient has been diagnosed with congestive heart failure and atrial fibrillation. She has been started on Coumadin. She is following with the Coumadin clinic at [facility]. She is scheduled for cardiac MRI. Patient returns on July 11, 2024. Patient is scheduled for follow up imaging but is going to try to reschedule the scan for next week due to the snow were supposed to get. [place] so it is difficult for her to traveling bad weather. Patient is feeling fatigued. She has had more pain in her right upper quadrant around to her back. She is taking hydrocodone 7.5 mg b.i.d. Discussed taking medication every 4-6 hours as needed. She will receive 5 FU, Leucovorin, and Vectibix today. Her eyes and rash have cleared. She previously developed a rash consistent with candidiasis under her breast, in the groin area, and axilla. Rash has resolved. Patient has had intermittent nausea, vomiting, and decreased appetite. Discussed appetite stimulant if needed. Patient declines to take appetite stimulant at this time. She has starting taking Zofran and this does help. Will order CEA today. Patient is starting to feel tired and worn down. Discussed with patient will follow-up imaging. Discussed based on imaging findings can discuss if patient wants to continue with chemotherapy versus palliative care. She wishes to continue with chemo at this time. Will follow-up. Will follow up labs. Parish Snider PA-C [address], [place], [id number], [place] - [facility] - [place] & [place] 07/11/2024 11:19:25 OBGyn Episode No OBEpisode recorded.
--- OUTSIDE RECORDS SUMMARY | 2024-09-08 21:02 | XMS_ITS | Continuity of Care Document ---
Author Organization [facility] Address [address] [place] [address] Care Team Providers Care Plumber Gasfitter Name Role Phone ADDY GONZALES General Surgeon CARLOS A COATS Primary Care Provider [phone] VERONIKA RIVER Car Dryer [phone] Assessment No assessment recorded. Plan of Treatment Reminders Order Date Submit Date Provider Last Modified By Organization Details Last Modified Time Details Appointments None recorded. Lab CBC w/ auto diff 2024 025 [facility], [address] , [place], [address], 5 09:46:31 CMP, serum or plasma 2024 025 [facility], [address] [place], [address], 5 09:39:00 carcinoembr yonic Ag, quant, serum or plasma 2024 025 [email or web address] [facility], [address] [place], [address], 5 09:16:06 Referral None recorded. Procedures None recorded. Surgeries None recorded. Imaging CT, head + brain, w/o contrast 2024 025 [email or web address] [facility] (Centralized Scheduling), [address] [place], [address], 5 09:16:16 Medication Orders None recorded. Patient TargetsNo targets recorded. Patient InstructionsNo instructions recorded. Reason for Referral None Reported. Results Created Date Observation Date Name Description Value Unit Range Abnormal Flag Note LastModifiedBy Organization Detail LastModifiedTime 07/28/19 25 07/28/2024 CT ABD pel w/ (IV [facility] [address] [place] [address] Phone: Fax: Name: DESHAWN MCMAHAN Exam Date: : 948 Age 78 years Gender : F Access ion: [id number] 2023 Physic jesus: [facility] ty: [facility] Facili ty HSV: Outpat ient Exam: CT ABD PEL W/ (IV ^ ORAL) CT ABDOME N PELVIS WITH IV CONTRA ST 025 2:46 PM [facility] INDICA TION: Female , 78 [...] histor y of colon carcin rox. Indeed simila r findin gs compar e Februa ry 2023, index neurocritical care physician ior segmen t right lobe segmen t [...] nsity renal lesion s, too small to mango pani[place] compar ed to prior study. * Status [...] Rey Castaneda 025 Thank you for referr DESHAWN Delgado to [facility]. Legall y authen ticate d by VAMSHI HALL 0 07-28 15:46: 13 CC'ed Logic: Orderi ng Provid er: DIGNA LUGO Attend ing Provid er: DIGNA LUGO Referr ing Provid er: DIGNA LUGO Admitt ing Provid er: DIGNA taylor[address] [place] [address] - Physical Therapy [address] [place] [address], [place], [address], 07/29/2024 11:36:27 08/02/19 25 07/28/2024 CT, chest , w/ contr ast [facility] Hospit al [address] [place] [address] Phone: Fax: Name: DESHAWN MCMAHAN Exam Date: : 948 Age 78 years Gender : F Access ion: [id number] 2023 Physic jesus: [facility] Facili ty: [place] Facili ty HSV: Outpat ient Exam: CT [...] recons tructi on techni que. COMPAR LON: y 2023 CT chest. FINDIN GS: LUNGS: [...] ns. Electr onical ly signed by: Annie mills MD 2024 10:35 AM EST RP Workst ation: [id number] Dictat ed By: Kotins lina, Benjam in Transc ribed By: Transc ribed On: 025 3:46 PM Electr onical ly signed by: Annie Villavicencio in Thank you for referr DESHAWN Delgado to [facility] it Hospit al. Legall y authen ticate d by AVIS ALBA IN 07-28 15:46: 34 CC'ed Logic: Orderi ng Provid er: DIGNA LUGO Attend ing Provid er: DIGNA LUGO Referr ing Provid er: DIGNA LUGO Admitt ing Provid er: DIGNA LUGO [email or web address] [facility] - Physical Therapy [address], [place], [address], 08/01/2024 10:49:34 Result Notes None recorded. Problems Name Problem SNOMED Code Status Onset Date Resolution Date Notes Provider Name and Address Organization Details Recorded Time Headache 01286329 Active 2024 Christine Farfan [facility], [place] - [facility] - [place] & [place] 5 10:27:12 Metastatic malignant neoplasm to liver 12703884 Active 2022 Ghassan Lieberman PA-C [address] [place], [place], [address] , [place] [facility] [place] 3 14:27:25 Mass of colon 223576624 Active 2022 Ghassan Lieberman PA-C [address] [place], [place], [address] , [place] [facility] [place] 3 14:27:30 Anemia 450468017 Active 2022 Ghassan Lieberman PA-C [address] [place], [place], [address] , [place] [facility] [place] 3 14:27:36 Nausea and vomiting 34658022 Active 2022 Ghassan Lieberman PA-C [address], [place], [address] , [place] - [facility] & [place] 3 14:27:46 Unintentional weight loss 230084688 Active [address], [place], [address] , [facility] & [place] 3 16:13:07 Night sweats 11384471 Active [address], [place], [address] , [facility] & [place] 3 16:13:12 Problem Notes None recorded. Procedures Surgical History Date Name Laterality Status Provider Name and Address Organization Details Recorded Time 04/29/20 23 Venipuncture [address], [place], [address], [facility] & [place] 04/27/2023 15:05:29 04/15/20 23 Venipuncture completed Stephanie Maravilla [facility] & [place] 04/15/2023 15:24:55 hysterectomy completed Laurel Samuels [facility] & [place] 03/11/2023 15:30:22 extraction of cataract completed Laurelesvin Samuels [facility] & [place] 03/11/2023 15:30:36 excision of colon completed Loree Tadeo [facility] & [place] 04/21/2023 11:32:07 Imaging Results None recorded. Procedure Notes None recorded. Medical Equipment None Reported. Allergies Allergen ID Allergen Name Allergen Category Reaction Reaction Severity Criticality Documentation Date Start Date Code Code System Note Provider Name and Address Organization Details Recorded Time 91957 tetracycl ine medicatio n hives Not available high 02/19/2023 12720 [facility] [place] 3 14:03:33 Medications Name Sig Start Date [...] Details Last Updated DateTime 5 162.56 cm 35.2 kg/m2 04996.4 4 g 97.5 [degF] 98 % 98 % 20 /min 83 /min 140 mm[Hg] 68 mm[Hg] Laurel Lai ALONZO [facility] & [place] 5 09:42:28 Social History Question Answer Notes LastModified by Organizat ion Details LastModified Time Tobacco Smoking Status Never Smoker CURT Johnston [facility] & [place] 02/19/2023 14:02:59 What Is Your Level Of Alcohol Consumption? None [email or web address] Information not available 02/19/2023 What Is Your Level Of Caffeine Consumption? None [email or web address] Information not available 02/19/2023 What Was The Date Of Your Most Recent Tobacco Screening? 11/23/2023 [email or web address] Information not available 11/23/2023 Do You Use Any Illicit Or Recreational Drugs? No [email or web address] Information not available 02/19/2023 Has Tobacco Cessation Counseling Been Provided? No [email or web address] Information not available 07/13/2023 Do You Or Have You Ever Used Any Other Forms Of Tobacco Or Nicotine? No [email or web address] Information not available 02/19/2023 Sex: Unknown Functional Status None recorded. Mental Status None recorded. Family History Nothing Reported. Medical History No medical history recorded. Gynecological HistoryNo gynecological history recorded. Obstetrics History GPAL:G 0 P 0 0 0 0 Immunizations Vaccine Type Date Status Note Provider Nam e and Address Organization Details Recorded Time pneumococcal polysaccharide PPV23 7 completed CURT Matta [facility] & [place] 12/21/2023 09:56:34 Past Encounters Encounter ID Performer Location Encounter Start Date Encounter Closed Date Diagnosis/Indication Diagnosis SNOMED-CT Code Diagnosis ICD10 Code Diagnosis Note [id number] Tomy King MD [facility] [address] [place] [address] 08/01/2024 11:10:37 08/01/2024 12:30:43 Malignant tumor of ascending colon 922468122 C18.2 CT scan of the abdomen and [...] 8.2 hematocrit 29.0. MCV 67.9. Platelet count 378299. Normal cell differenti al. Low serum folate [...] CT scan of the chest abdomen pelvis performed on July 28, 2024. Comparison made with imaging from June 09, 2023. No evidence of metastatic disease in the chest. No evidence of lymphadeno esperanza or pulmonary nodules. Imaging of the abdomen with low-densit y lesions seen in the liver compatible with metastatic disease. Compared to prior imaging enlargemen t of mass in the posterior segment of the right lobe segment 7 that now measures 7.7 cm and previously measured 4.9 cm. Inferior right hepatic lobe lesion 3.4 cm and previously measured 3.3 cm. No areas of adenopathy . No new sites of disease. Unfortunat froilan patient with disease progressio n on recent imaging. This coincides with marked increase in CEA. Most recent CEA on July 25, 2024 at 111.0. Patient returns on August 01, 2024. Discontinu ing 5FU Leucovorin and Vectibix every 2 week therapy. Options considerat ion for every 2 week dosing of 5FU Leucovorin with irinotecan verses bevacizuma b with Lonsurf therapy. Another alternativ e would be Lonsurf therapy alone. Repeat Tempus testing on peripheral blood with no evidence of actionable mutation in metastatic colon cancer setting. PI3 kinase mutation however no studies in colorectal cancer. Discussed study published in September 2022 in the [place] of combined Avastin therapy with Lonsurf. Phase 3 trial with median overall survival of 10.8 months in combinatio n therapy verses 7.5 months Lonsurf alone. Progressio n-free survival 5.6 months versus 2.4 months in Lonsurf alone therapy. Following discussion recommende d continuati on of every 2 week 5FU Leucovorin with irinotecan every 2 weeks. Will reach out to Radiation Medicine and assess for potential radiation therapy to dominant liver lesions. Will follow-up Metastatic malignant neoplasm to liver 22603712 C78.7 CT scan of the abdomen and [...] Findings concerning for metastatic colon cancer. Nausea 579156332 R11.0 As needed Zofran and Phenergan prescribed . Discussed trying scopolamin e patches but her insurance wouldn't cover. She is taking Zofran with relief. Pain due t o neoplastic disease 8450232852 9102 G89.3 She is taking hydrocodon e 7.5 mg b.i.d. Discussed taking medication every 4-6 hours as needed. Anemia 127193478 D64.9 Right-side d colon mass concerning for malignancy . Will assess for any signs of iron deficiency . Hemoglobin previously 8.0. Concern for blood loss from colon mass. Patient reports dark stools. labs on July 25, 2024 with improvemen t of hemoglobin 12.6. Patient is currently receiving infusional iron. Adopted 845875407 Z62.89 8 Patient is adopted and discussed hereditary gene panel. Patient does have family history of her son having bladder cancer. Will send [facility] hereditary panel. Antineopla stic chemotherapy regimen 501106978 Z51.11 Week 1 5FU Leucovorin Vectibix on [...] July 20, 2024. Patient will receive Vectibix today.Cycl e 27 of 5FU Leucovorin on July 25, 2024. Patient will not receive Vectibix today. 5FU Leucovorin Vectibix stopped in late July 2024 due to disease progressio n. Hypokalemia 05118965 E87 .6 Patient returns on April 29, 2023. Potassium is low at 2.9. Will send prescripti on for potassium 20 mEq daily. Will follow-up labs again next week. Deep venou s thrombosis 589724535 I82.409 Patient developed right lower extremity pain [...] duplex. 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 [...] and depression . Discussed antidepres melina. Patient agreeable. Will send prescripti on for Cymbalta. Patient returns for follow up on July 25, 2024. She reports depression has improved. Atopic conjunctivitis 23 9815474 H10.12 Patient with conjunctiv itis of the left eye. Held Vectibix on December 07, 2023. Continue with current therapy. Will follow up again in 2 weeks. Patient returns on July 25, 2024. She does have conjunctiv itis of the left eye. Will hold Vectibix today. Will follow up. Iron defic iency anemia 90217037 D50.9 Currently receiving infusional iron. Will continue to monitor. Insomnia 734708079 G47.0 0 Patient returns on February 08, 2024. She has had difficulty sleeping for most of her life. She has tried multiple medication s without relief. She is tried Mirtazapin e and lorazepam without improvemen t of insomnia. Discussed trying trazodone instead. Will send prescripti on. Will send prescripti on for Requip for restless legs. Restless legs 04504692 G 25.81 Patient returns on February 08, [...] resolved since patient has not received Vectibix. Patient returns on July 25, 2024. She received Vectibix on July 11, 2024. She developed a rash consistent with candidiasi s under her breasts, in the groin area, and axilla. Rash has resolved with diflucan and nystain powder. Generalized rash 6328323 06 R21 Patient returns on May 30, [...] keep the area dry. Will follow-up. Rash due to Vectibix. Atrial fibrillation 4943 6004 I48.91 Patient returns on June 27, 2024. Since previous visit patient has been diagnosed with congestive heart failure and atrial fibrillati on. She has been started on Coumadin. She is following with the Coumadin clinic at [facility]. Congestive heart failure 98521669 I50.9 Patient returns on June 27, 2024. Since previous visit patient has been diagnosed with congestive heart failure and atrial fibrillati on. She has started lasix and is following with a cardiologi st. Cachexia 581923120 R64 Patient returns on July 25, 2024. Patient has had decreased appetite. Continues to lose weight. She has lost 4 more lbs since previous visit. She is drinking nutritiona l supplement s. Discussed appetite stimulant. Patient previously refused. Now she is agreeable to try Megace. Will send prescripti on. Will follow up for angela oakley [id number] Parish Snider PA-C [facility] [address] [place] [address] 08/10/2024 09:37:37 08/10/2024 10:29:37 Malignant tumor of ascending colon 381697743 C18.2 CT scan of the abdomen and [...] 8.2 hematocrit 29.0. MCV 67.9. Platelet count 356389. Normal cell differenti al. Low serum folate [...] CT scan of the chest abdomen pelvis performed on July 28, 2024. Comparison made with imaging from June 09, 2023. No evidence of metastatic disease in the chest. No evidence of lymphadeno esperanza or pulmonary nodules. Imaging of the abdomen with low-densit y lesions seen in the liver compatible with metastatic disease. Compared to prior imaging enlargemen t of mass in the posterior segment of the right lobe segment 7 that now measures 7.7 cm and previously measured 4.9 cm. Inferior right hepatic lobe lesion 3.4 cm and previously measured 3.3 cm. No areas of adenopathy . No new sites of disease. Unfortunat froilan patient with disease progressio n on recent imaging. This coincides with marked increase in CEA. Most recent CEA on July 25, 2024 at 111.0. Patient returns on August 01, 2024. Discontinu ing 5FU Leucovorin and Vectibix every 2 week therapy. Options considerat ion for every 2 week dosing of 5FU Leucovorin with irinotecan verses bevacizuma b with Lonsurf therapy. Another alternativ e would be Lonsurf therapy alone. Repeat Tempus testing on peripheral blood with no evidence of actionable mutation in metastatic colon cancer setting. PI3 kinase mutation however no studies in colorectal cancer. Discussed study published in September 2022 in the [employer] of combined Avastin therapy with Lonsurf. Phase 3 trial with median overall survival of 10.8 months in combinatio n therapy verses 7.5 months Lonsurf alone. Progressio n-free survival 5.6 months versus 2.4 months in Lonsurf alone therapy. Following discussion recommende d continuati on of every 2 week 5FU Leucovorin with irinotecan every 2 weeks. Will reach out to Radiation Medicine and assess for potential radiation therapy to dominant liver lesions. Metastatic malignant neoplasm to liver 58410159 C78.7 CT scan of the abdomen and [...] mass. Findings concerning for metastatic colon cancer. Following discussion recommende d continuati on of every 2 week 5FU Leucovorin with irinotecan every 2 weeks. Will reach out to Radiation Medicine and assess for potential radiation therapy to dominant liver lesions. Will send referral to see if patient is a candidate for radiation Nausea 392900767 R11.0 As needed Zofran and Phenergan prescribed . Discussed trying scopolamin e patches but her insurance wouldn't cover. She is taking Zofran with relief. Pain due t o neoplastic disease [id number] 9102 G89.3 She is taking hydrocodon e 7.5 mg b.i.d. Discussed taking medication every 4-6 hours as needed. Anemia 940580980 D64.9 Right-side d colon mass concerning for malignancy . Will assess for any signs of iron deficiency . Hemoglobin previously 8.0. Concern for blood loss from colon mass. Patient reports dark stools. Labs on August 10, 2024 with hemoglobin slightly low at 11.9. She is receiving infusional iron as needed. Adopted 159180977 Z62.89 8 Patient is adopted and discussed hereditary gene panel. Patient does have family history of her son having bladder cancer. [facility] hereditary panel sent Antineopla stic chemotherapy regimen 418781389 Z51.11 Week 1 5FU Leucovorin Vectibix on [...] July 20, 2024. Patient will receive Vectibix today.Cycl e 27 of 5FU Leucovorin on July 25, 2024. Patient will not receive Vectibix today. 5FU Leucovorin Vectibix stopped in late July 2024 due to disease progressio n. Cycle 1 of 5FU Leucovorin with irinotecan on August 10, 2024. Chemothera py education provided before treatment started. Will follow up labs prior to chemothera py today. Will monitor for tolerabili ty and toxicity. Hypokalemia 21184759 E87 .6 Currently taking for potassium 20 mEq daily. Will follow up labs. Mixed anxi ety and depressive disorder 086885291 F41.8 Patient returns on November 23, 2023. [...] and depression . Discussed antidepres melina. Patient agreeable. Will send prescripti on for Cymbalta. Patient reports depression has improved. Atopic conjunctivitis 23 6095464 H10.12 Conjunctiv itis due to Vectibix. This is improving. Iron defic iency anemia 81959511 D50.9 Currently receiving infusional iron as needed. Will continue to monitor. Insomnia 757490804 G47.0 0 Patient has had difficulty sleeping for most of her life. She has tried multiple medication s without relief. She is tried Mirtazapin e and lorazepam without improvemen t of insomnia. Discussed trying trazodone instead. Restless legs 17038128 G 25.81 Patient taking Requip for restless legs. Generalized rash 3552254 06 R21 Patient with rash due to Vectibix. This is improving. Atrial fibrillation 5067 6004 I48.91 Patient has been diagnosed with congestive heart failure and atrial fibrillati on. She has been started on Coumadin. She is following with the Coumadin clinic at [facility]. Congestive heart failure 17982498 I50.9 Patient has been diagnosed with congestive heart failure. She has started lasix and is following with a cardiologi st. Cachexia 064574851 R64 Patient has had decreased appetite and weight loss. She is drinking nutritiona l supplement s. Discussed appetite stimulant. Patient previously refused. She has started on Megace. Will continue to monitor History of deep vein thrombosis 226770677 Z86.718 Patient developed right lower extremity pain and edema.Veno us duplex on May 28, 2023 with evidence of deep vein thrombosis . Started on Eliquis 5 mg 1 tab p.o. b.i.d.. Did not start with Eliquis starter pack due to recent bleeding. Patient had a DVT and a PE in 1990 after her hysterecto my.Clot resolution on repeat venous duplex. Drug therapy finding 309 816126 Z79.01 She continues on Coumadin due to a fib. She is following with the Coumadin clinic at [facility]. [id number] [facility] [address] [place] [address] 08/25/2024 09:02:23 08/25/2024 09:51:52 Antineoplastic chemotherapy regimen 390736716 Z51.11 Week 1 5FU Leucovorin Vectibix on [...] July 20, 2024. Patient will receive Vectibix today.Cycl e 27 of 5FU Leucovorin on July 25, 2024. Patient will not receive Vectibix today. 5FU Leucovorin Vectibix stopped in late July 2024 due to disease progressio n. Cycle 1 of 5FU Leucovorin with irinotecan on August 10, 2024. Cycle 2 of 5FU Leucovorin with irinotecan on August 25, 2024. Will follow up labs prior to chemothera py today. Will monitor for tolerabili ty and toxicity. Malignant tumor of ascending colon 181583971 C18.2 CT scan of the abdomen and [...] 8.2 hematocrit 29.0. MCV 67.9. Platelet count 769407. Normal cell differenti al. Low serum folate [...] CT scan of the chest abdomen pelvis performed on July 28, 2024. Comparison made with imaging from June 09, 2023. No evidence of metastatic disease in the chest. No evidence of lymphadeno esperanza or pulmonary nodules. Imaging of the abdomen with low-densit y lesions seen in the liver compatible with metastatic disease. Compared to prior imaging enlargemen t of mass in the posterior segment of the right lobe segment 7 that now measures 7.7 cm and previously measured 4.9 cm. Inferior right hepatic lobe lesion 3.4 cm and previously measured 3.3 cm. No areas of adenopathy . No new sites of disease. Unfortunat froilan patient with disease progressio n on recent imaging. This coincides with marked increase in CEA. Most recent CEA on July 25, 2024 at 111.0. Patient returns on August 01, 2024. Discontinu ing 5FU Leucovorin and Vectibix every 2 week therapy. Options considerat ion for every 2 week dosing of 5FU Leucovorin with irinotecan verses bevacizuma b with Lonsurf therapy. Another alternativ e would be Lonsurf therapy alone. Repeat Tempus testing on peripheral blood with no evidence of actionable mutation in metastatic colon cancer setting. PI3 kinase mutation however no studies in colorectal cancer. Discussed study published in September 2022 in the [employer] of combined Avastin therapy with Lonsurf. Phase 3 trial with median overall survival of 10.8 months in combinatio n therapy verses 7.5 months Lonsurf alone. Progressio n-free survival 5.6 months versus 2.4 months in Lonsurf alone therapy. Following discussion recommende d continuati on of every 2 week 5FU Leucovorin with irinotecan every 2 weeks. Will reach out to Radiation Medicine and assess for potential radiation therapy to dominant liver lesions. Metastatic malignant neoplasm to liver 12635350 C78.7 CT scan of the abdomen and [...] mass. Findings concerning for metastatic colon cancer. Following discussion recommende d continuati on of every 2 week 5FU Leucovorin with irinotecan every 2 weeks. Will reach out to Radiation Medicine and assess for potential radiation therapy to dominant liver lesions. Will send referral to see if patient is a candidate for radiation Nausea 835127719 R11.0 As needed Zofran and Phenergan prescribed . Discussed trying scopolamin e patches but her insurance wouldn't cover. She is taking Zofran with relief. Pain due t o neoplastic disease 8605257667 9102 G89.3 She is taking hydrocodon e 7.5 mg b.i.d. Discussed taking medication every 4-6 hours as needed. She has had abdominal pain that radiates to her back from her malignancy but she is waiting until later in the day to take her pain medication s. Discussed taking her pain medication s earlier in the day. Her pain controlled when she does take her current medication s Anemia 402377120 D64.9 Right-side d colon mass concerning for malignancy . Will assess for any signs of iron deficiency . Hemoglobin previously 8.0. Concern for blood loss from colon mass. Patient reports dark stools. Labs on August 10, 2024 with hemoglobin slightly low at 11.9. She is receiving infusional iron as needed. Adopted 818010946 Z62.89 8 Patient is adopted and discussed hereditary gene panel. Patient does have family history of her son having bladder cancer. [facility] Martin hereditary panel sent Hypokalemia [id number] E87 .6 Currently taking for potassium 20 mEq daily. Will follow up labs. Mixed anxi ety and depressive disorder [id number] F41.8 Patient returns on November 23, 2023. [...] and depression . Discussed antidepres melina. Patient agreeable. Will send prescripti on for Cymbalta. Patient reports depression has improved. Atopic conjunctivitis 23 [id number] H10.12 Conjunctiv itis due to Vectibix. This is improving. Iron defic iency anemia [id number] D50.9 Receiving infusional iron as needed. Will continue to monitor. Insomnia [id number] G47.0 0 Patient has had difficulty sleeping for most of her life. She has tried multiple medication s without relief. She is tried Mirtazapin e and lorazepam without improvemen t of insomnia. Discussed trying trazodone instead. Restless legs [id number] G 25.81 Patient taking Requip for restless legs. Generalized rash [id number] R21 Rash due to Vectibix. This has improved. Atrial fibrillation [id number] I48.91 Patient has been diagnosed with congestive heart failure and atrial fibrillati on. She has been started on Coumadin. She is following with the Coumadin clinic at [facility]. Congestive heart failure [id number] I50.9 Patient has been diagnosed with congestive heart failure. She has started lasix and is following with a cardiologi st. Cachexia [id number] R64 Patient has had decreased appetite and weight loss. She is drinking nutritiona l supplement s. Discussed appetite stimulant. Patient previously refused. She has started on Megace. She does not like the taste of Megace. Discussed Megace tablets instead of liquid but patient declines at this time. Will continue to monitor History of deep vein thrombosis [id number] Z86.718 Patient developed right lower extremity pain and edema.Veno us duplex on May 28, 2023 with evidence of deep vein thrombosis . Started on Eliquis 5 mg 1 tab p.o. b.i.d.. Did not start with Eliquis starter pack due to recent bleeding. Patient had a DVT and a PE in 1990 after her hysterecto my.Clot resolution on repeat venous duplex. Drug therapy finding [id number] Z79.01 She continues on Coumadin due to a fib. She is following with the Coumadin clinic at [facility]. Acute post traumatic headache [id number] 64535 G44.319 Patient returns on August 25, 2024. She mentions she lost her balance and had a fall about two weeks ago and hit her head. She had headaches since her fall. Denies any change in vision. She does feel off balance at times. She is on Coumadin for atrial fibrillati on and her INR is been elevated. Discussed CT of head for further evaluation . Will order today. Internatio nal normalized ratio above reference range [id number] R79.1 Patient returns on August 25, 2024. She is on Coumadin for atrial fibrillati on and her INR is elevated. She is going to the Coumadin Clinic for management . INR 8 today. She is going to hold Coumadin and contact Coumadin Clinic for directions today. Denies any bleeding at this time. Health Concerns Section Related Observation LastModified by Organization Detai ls LastModified Time None Recorded Concern Status LastModified by Organization Details LastModified Time None Recorded Payers Encounter Date Sequence Insurance Name Policy Number Policy Bell Covered Member ID Bell Member ID Guarantor Name 08/25/2024 1 [place] Deshawn Roblero [id number] Deshawn Roblero 08/25/2024 2 [employer] (MEDICARE SUPPLEMENT) Deshawn Roblero [id number] Deshawn Roblero Notes Date Note Type Note Provider Name and Address Organization Details Recorded Time 08/25/2024 text/html 78 yo F returns for evaluation of metastatic colon cancer. Patient recently seen on February 17, 2023 in the emergency room at [facility] with abdominal pain. Patient reported epigastric pain [...] 8.2 hematocrit 29.0. MCV 67.9. Platelet count 520920. Normal cell differential. Low serum folate of [...] with metastatic colorectal cancer. Discussed chemotherapy with [place] based regimen with 5FU Leucovorin if [...] is following with the Coumadin clinic at [facility]. She is scheduled for cardiac MRI. Patient returns on July 25, 2024. Patient was scheduled for follow up imaging but She canceled the scans due to weather. She was going to reschedule the scans but she had influenza last week and did not reschedule her scans. She is feeling better now. Patient was encouraged to reschedule her imaging. Pain is controlled with her current medications. She will receive 5 FU and Leucovorin today. Will hold Vectibix today. She received Vectibix on July 11, 2024. She developed a rash consistent with candidiasis under her breasts, in the groin area, and axilla. Rash has resolved with diflucan and nystain powder. She does have conjunctivitis of the left eye. Will hold Vectibix today. CT scan of the chest abdomen pelvis performed on July 28, 2024. Comparison made with imaging from June 09, 2023. No evidence of metastatic disease in the chest. No evidence of lymphadenopathy or pulmonary nodules. Imaging of the abdomen with low-density lesions seen in the liver compatible with metastatic disease. Compared to prior imaging enlargement of mass in the posterior segment of the right lobe segment 7 that now measures 7.7 cm and previously measured 4.9 cm. Inferior right hepatic lobe lesion 3.4 cm and previously measured 3.3 cm. No areas of adenopathy. No new sites of disease. Unfortunately patient with disease progression on recent imaging. This coincides with marked increase in CEA. Most recent CEA on July 25, 2024 at 111.0. Patient returns on August 01, 2024. Discontinuing 5FU Leucovorin and Vectibix every 2 week therapy. Options consideration for every 2 week dosing of 5FU Leucovorin with irinotecan verses bevacizumab with Lonsurf therapy. Another alternative would be Lonsurf therapy alone. Discussed study published in September 2022 in the [place] of combined Avastin therapy with Lonsurf. Phase 3 trial with median overall survival of 10.8 months in combination therapy verses 7.5 months Lonsurf alone. Progression-free survival 5.6 months versus 2.4 months in Lonsurf alone therapy. Patient returns on August 25, 2024. She has had abdominal pain that radiates to her back from her malignancy but she is waiting until later in the day to take her pain medications. Discussed taking her pain medications earlier in the day. Her pain controlled when she does take her current medications. She mentions she lost her balance and had a fall about two weeks ago and hit her head. She had headaches since her fall. Denies any change in vision. She does feel off balance at times. She is on Coumadin for atrial fibrillation and her INR is elevated. Discussed CT of head for further evaluation. Will order today. She has started using a walker at home for for balance. Will follow up if this continues. She is will receive cycle 2 of 5FU Leucovorin with irinotecan today. She had diarrhea after her last cycle but this has improved. She has noticed her hair is thinning and falling out. She is handling this well. Will follow up labs prior to chemotherapy today. Will monitor for tolerability and toxicity. Parish Snider PA-C [id number], [place], [phone], [facility] [place] [facility] [place] & [place] 08/25/2024 10:43:13 OBGyn Episode No OBEpisode recorded.
--- OUTSIDE RECORDS SUMMARY | 2024-09-08 21:03 | XMS_ITS | Continuity of Care Document ---
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 Plan of Treatment Reminders Order Date Submit Date Provider Last Modified By Organization Details Last Modified Time Details Appointments None recorded. Lab carcinoembr yonic Ag, quant, serum or plasma 2024 [email or web address] [facility], [address] [place], [address], 5 09:07:03 CMP, serum or plasma 20[email or web address] [facility], [address] [place], [address], 5 11:45:06 CBC w/ diff 2024 [email or web address] [facility], [address] [place], [address], 5 09:07:03 Referral None recorded. Procedures None recorded. Surgeries None recorded. Imaging None recorded. Medication Orders megestrol 400 mg/10 mL (40 mg/mL) oral suspension 2024 025 [id number], [address] [place], [address], 11:45:06 Patient TargetsNo targets recorded. Patient InstructionsNo instructions recorded. Reason for Referral None Reported. Results Created Date Observation Date Name Description Value Unit Range Abnormal Flag Note LastModifiedBy Organization Detail LastModifiedTime 07/28/1907/28/2024 CT ABD pel w/ (IV [facility] [address] [place] [address] Phone: Fax: Name: DESHAWN MCMAHAN Exam Date: : 948 Age 78 years Gender : F Access ion: [id number] 2023 Physic jesus: PAR[facility] PARKERi ty: [facility] Facili ty HSV: Outpat ient Exam: CT ABD PEL W/ (IV ^ ORAL) CT ABDOME N PELVIS WITH IV CONTRA ST 025 2:46 PM [facility] INDICA TION: Female , 78 [...] gs compar e Februa ry 2023, 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 * Status [...] [facility] Legall y authen ticate d by VAMSHI HALL 07-28 15:46: 13 CC'ed Logic: Orderi ng Provid er: DIGNA LUGO Attend ing Provid er: DIGNA LUGO Referr ing Provid er: DIGNA LUGO Admitt ing Provid er: DIGNA taylor[address] [place] [address] - Physical Therapy [address] [facility], [place], [address], 07/29/2024 11:36:27 08/02/19 25 07/28/2024 CT, chest , w/ contr ast [facility] [address] [place] [address] Phone: Fax: Name: ANGELINA DIGGS DESHAWN Exam Date: 025 : 948 Age 78 years Gender : F Access ion: [id number] 2023 Physic jesus: PAR[facility] PARKER Facili ty: [facility] Facili ty HSV: Outpat ient [...] in Transc ribed By: Transc ribed On: 3:46 PM Electr onical ly signed by: Annie Villavicencio in Thank you [facility] Legall y authen ticate d by AVIS ALBA IN 07-28 15:46: 34 CC'ed Logic: Orderi ng Provid er: DIGNA LUGO Attend ing Provid er: DIGNA LUGO Referr ing Provid er: DIGNA LUGO Admitt ing Provid er: DIGNA LUGO [email or web address] [facility] - [facility] Therapy [address], [place], [address], 08/01/2024 10:49:34 Result Notes None recorded. Problems Name Problem SNOMED Code Status Onset Date Resolution Date Notes Provider Name and Address Organization Details Recorded Time Headache 63579482 Active 2024 Christine Farfan [facility], [place] - [facility] [place] 5 10:27:12 Metastatic malignant neoplasm to liver 58417348 Active 2022 Ghassan Lieberman PA-C [address], [place], [address] , [place] [facility] [place] 3 14:27:25 Mass of colon 686103076 Active 2022 Ghassan Lieberman PA-C [address], [place], [address] , [place] [facility] [place] 3 14:27:30 Anemia 148785717 Active 2022 Ghassan Lieberman PA-C [address], [place], [address] , [place] [facility] [place] 3 14:27:36 Nausea and vomiting 77937404 Active 2022 Ghassan Lieberman PA-C [address], [place], [address] , [place] [facility] [place] 3 14:27:46 Unintentional weight loss 289993784 Active 2022 Ghassan Lieberman PA-C [address], [place], [address] , [facility] & [place] 3 16:13:07 Night sweats 64565854 Active [address], [facility] [address] , [facility] & [place] 3 16:13:12 Problem Notes None recorded. Procedures Surgical History Date Name Laterality Status Provider Name and Address Organization Details Recorded Time 04/29/20 23 Venipuncture completed Parish Snider PA-C [address] , [place], [address], [facility] & [place] 04/27/2023 15:05:29 04/15/20 23 Venipuncture completed Stephanie Maravilla [facility] & [place] 04/15/2023 15:24:55 hysterectomy completed Laurel Samuels [facility] & [place] 03/11/2023 15:30:22 extraction of cataract completed Laurelesvin Samuels [facility] & [place] 03/11/2023 15:30:36 excision of colon completed Loree Tadeo [facility] & [place] 04/21/2023 11:32:07 Imaging Results None recorded. Procedure Notes None recorded. Medical Equipment None Reported. Allergies Allergen ID Allergen Name Allergen Category Reaction Reaction Severity Criticality Documentation Date Start Date Code Code System Note Provider Name and Address Organization Details Recorded Time 14903 tetracycl ine medicatio n hives Not available high 02/19/2023 85071 RxNorm Brandytyler yusuf [facility] & [place] 3 14:03:33 Medications Name Sig Start Date [...] Arterial blood by Pulse oximetry Heart rate Systolic blood pressure Diastolic blood pressure Provider Name and Address Organization Details Last Updated DateTime 5 162.56 cm 36 kg/m2 45152.4 g 98 [degF] 97 % 97 % 98 /min 132 mm[Hg] 72 mm[Hg] Akilah ELIAS [facility] & [place] 5 10:42:43 Social History Question Answer Notes LastModified by Organizat ion Details LastModified Time Tobacco Smoking Status Never Smoker CURT Johnston [facility] & [place] 02/19/2023 14:02:59 What Is Your Level Of Alcohol Consumption? None [email or web address] Information not available 02/19/2023 What Is Your Level Of Caffeine Consumption? None [email or web address] Information not available 02/19/2023 What Was The Date Of Your Most Recent Tobacco Screening? 11/23/2023 [email or web address] Information not available 11/23/2023 Do You Use Any Illicit Or Recreational Drugs? No [email or web address] Information not available 02/19/2023 Has Tobacco Cessation Counseling Been Provided? No Information not available 07/13/2023 Do You Or Have You Ever Used Any Other Forms Of Tobacco Or Nicotine? No [email or web address] Information not available 02/19/2023 Sex: Unknown Functional Status None recorded. Mental Status None recorded. Family History Nothing Reported. Medical History No medical history recorded. Gynecological HistoryNo gynecological history recorded. Obstetrics History GPAL:G 0 P 0 0 0 0 Immunizations Vaccine Type Date Status Note Provider Nam e and Address Organization Details Recorded Time pneumococcal polysaccharide PPV23 7 completed CURT Matta [facility] & [place] 12/21/2023 09:56:34 Past Encounters Encounter ID Performer Location Encounter Start Date Encounter Closed Date Diagnosis/Indication Diagnosis SNOMED-CT Code Diagnosis ICD10 Code Diagnosis Note [id number] Parish Snider PA-C [facility] [address] [place] [address] 06/27/2024 09:58:37 06/27/2024 10:53:58 Malignant tumor of ascending colon 134118798 C18.2 CT scan of the abdomen and [...] 8.2 hematocrit 29.0. MCV 67.9. Platelet count 881017. Normal cell differenti al. Low serum folate [...] is following with the Coumadin clinic at [facility]. She is scheduled for [...] up labs. Metastatic malignant neoplasm to liver 57551575 C78.7 CT scan of the abdomen and [...] Findings concerning for metastatic colon cancer. Nausea 239400119 R11.0 As needed Zofran and Phenergan prescribed . Discussed trying scopolamin e patches but her insurance wouldn't cover. Pain due t o neoplastic disease 7204291452 9102 G89.3 Right upper quadrant pain secondary to liver metastasis . Patient currently taking Tylenol. Discussed as needed oxycodone to limit Tylenol exposure. Anemia 496907032 D64.9 Right-side d colon mass concerning for malignancy . Will assess for any signs of iron deficiency . Most recent hemoglobin at 8.0. Concern for blood loss from colon mass. Patient reports dark stools. Adopted 157639470 Z62.89 8 Patient is adopted and discussed hereditary gene panel. Patient does have family history of her son having bladder cancer. Will send [facility] hereditary panel. Antineopla stic chemotherapy regimen 738522809 Z51.11 Week 1 5FU Leucovorin Vectibix on [...] Patient will receive not Vectibix today. Hypokalemia 53718630 E87 .6 Patient returns on April 29, 2023. Potassium is low at 2.9. Will send prescripti on for potassium 20 mEq daily. Will follow-up labs again next week. Deep venou s thrombosis 793417948 I82.409 Patient developed right lower extremity pain [...] duplex. 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 [...] prescripti on for Cymbalta. Atopic conjunctivitis 23 9247330 H10.12 Patient with conjunctiv itis of the left eye. Held Vectibix on December 07, 2023. Continue with current therapy. Will follow up again in 2 weeks. Iron defic iency anemia 22233011 D50.9 Will follow up labs Insomnia 956529290 G47.0 0 Patient returns on February 08, 2024. She has had difficulty sleeping for most of her life. She has tried multiple medication s without relief. She is tried Mirtazapin e and lorazepam without improvemen t of insomnia. Discussed trying trazodone instead. Will send prescripti on. Will send prescripti on for Requip for restless legs. Restless legs 97032742 G 25.81 Patient returns on February 08, [...] patient has not received Vectibix. Generalized rash 8213177 06 R21 Patient returns on May 30, [...] is following with the Coumadin clinic at [facility]. Congestive heart failure 75697087 I50.9 Patient returns on June 27, 2024. Since previous visit patient has been diagnosed with congestive heart failure and atrial fibrillati on. She has started lasix and is following with a cardiologi st. [id number] Parish Snider PA-C [facility] [address] [place] [address] 07/11/2024 09:55:48 07/11/2024 10:53:23 Malignant tumor of ascending colon 496412680 C18.2 CT scan of the abdomen and [...] 8.2 hematocrit 29.0. MCV 67.9. Platelet count 791021. Normal cell differenti al. Low serum folate [...] up labs. Metastatic malignant neoplasm to liver 71735793 C78.7 CT scan of the abdomen and [...] Findings concerning for metastatic colon cancer. Nausea 353383535 R11.0 As needed Zofran and Phenergan prescribed . Discussed trying scopolamin e patches but her insurance wouldn't cover. She is taking Zofran with relief. Pain due t o neoplastic disease 5520099112 9102 G89.3 She is taking hydrocodon e 7.5 mg b.i.d. Discussed taking medication every 4-6 hours as needed. Anemia 925824783 D64.9 Right-side d colon mass concerning for malignancy . Will assess for any signs of iron deficiency . Most recent hemoglobin at 8.0. Concern for blood loss from colon mass. Patient reports dark stools. Adopted 165947279 Z62.89 8 Patient is adopted and discussed hereditary gene panel. Patient does have family history of her son having bladder cancer. Will send [facility] hereditary panel. Antineopla stic chemotherapy regimen 431508798 Z51.11 Week 1 5FU Leucovorin Vectibix on [...] 2024. Patient will receive Vectibix today. Hypokalemia 89232429 E87 .6 Patient returns on April 29, 2023. Potassium is low at 2.9. Will send prescripti on for potassium 20 mEq daily. Will follow-up labs again next week. Deep venou s thrombosis 984173724 I82.409 Patient developed right lower extremity pain [...] duplex. Mixed anxi ety and depressive disorder 299023374 F41.8 Patient returns on November 23, 2023. [...] prescripti on for Cymbalta. Atopic conjunctivitis 23 4387816 H10.12 Patient with conjunctiv itis of the left eye. Held Vectibix on December 07, 2023. Continue with current therapy. Will follow up again in 2 weeks. Iron defic iency anemia 78184254 D50.9 Will follow up labs Insomnia 604859112 G47.0 0 Patient returns on February 08, 2024. She has had difficulty sleeping for most of her life. She has tried multiple medication s without relief. She is tried Mirtazapin e and lorazepam without improvemen t of insomnia. Discussed trying trazodone instead. Will send prescripti on. Will send prescripti on for Requip for restless legs. Restless legs 40432325 G 25.81 Patient returns on February 08, [...] patient has not received Vectibix. Generalized rash 0368148 06 R21 Patient returns on May 30, [...] is following with the Coumadin clinic at [facility]. Congestive heart failure 47016013 I50.9 Patient returns on June 27, 2024. Since previous visit patient has been diagnosed with congestive heart failure and atrial fibrillati on. She has started lasix and is following with a cardiologi st. [id number] Jana España MD [facility] [address] [place] [address] 07/06/2024 10:53:43 07/08/2024 03:53:47 Seen by palliative care service 189406138 Z51.5 Introduced services today. Dtr and son would be NOK - she feels important to start thinking about completion of LW/AD- I provided copies today [facility] and will plan to f/u on this is two weeks. Encouraged her to think about HCS/code status. Still wants to continue chemo and has scans next week - did not discuss hospice, but eligible at any point Pain due t o neoplastic disease 6177581007 9102 G89.3 Uncontroll ed, had lortab prescribed which manages pain well when she takes medication . Encouraged adherence. Mixed anxi ety and depressive disorder 315088507 F41.8 Uncontroll ed. Not taking cymbalta. Encouraged adherence and PRN ativan for breakthrou gh syptoms. Did not wish to pursue CBt at this time, will d/w Elsa for additional support options moving forward Nausea and vomiting 1691999 R11.2 Related to malignancy vs. Chemo. Improved with PRN and qAM zofran, likely related to chemo vs. malignancy Loss of appetite 7243627 6 R63.0 Related to malignancy . Not taking mirtazapin e. Does not want to add additional Rx at this itme or see nutritioni st. [id number] Parish Snider PA-C [facility] [address] [place] [address] 07/25/2024 10:19:02 07/25/2024 10:39:35 Malignant tumor of ascending colon 299716268 C18.2 CT scan of the abdomen and [...] 8.2 hematocrit 29.0. MCV 67.9. Platelet count 300045. Normal cell differenti al. Low serum folate [...] Will follow-up labs. Patient returns on July 25, 2024. Patient was scheduled for follow up imaging but She canceled the scans due to weather. She was going to reschedule the scans but she had influenza last week and did not reschedule her scans. She is feeling better now. Patient was encouraged to reschedule her imaging. Pain is controlled with her current medication s. She will receive 5 FU and Leucovorin today. Will hold Vectibix today. She received Vectibix on July 11, 2024. She developed a rash consistent with candidiasi s under her breasts, in the groin area, and axilla. Rash has resolved with diflucan and nystain powder. She does have conjunctiv itis of the left eye. Will hold Vectibix today. Metastatic malignant neoplasm to liver 83802510 C78.7 CT scan of the abdomen and [...] Findings concerning for metastatic colon cancer. Nausea 806512745 R11.0 As needed Zofran and Phenergan prescribed . Discussed trying scopolamin e patches but her insurance wouldn't cover. She is taking Zofran with relief. Pain due t o neoplastic disease 1440738991 9102 G89.3 She is taking hydrocodon e 7.5 mg b.i.d. Discussed taking medication every 4-6 hours as needed. Anemia 280041828 D64.9 Right-side d colon mass concerning for malignancy . Will assess for any signs of iron deficiency . Hemoglobin previously 8.0. Concern for blood loss from colon mass. Patient reports dark stools. labs on July 25, 2024 with improvemen t of hemoglobin 12.6. Patient is currently receiving infusional iron. Adopted 347059967 Z62.89 8 Patient is adopted and discussed hereditary gene panel. Patient does have family history of her son having bladder cancer. Will send [facility] hereditary panel. Antineopla stic chemotherapy regimen 429226513 Z51.11 Week 1 5FU Leucovorin Vectibix on [...] 2024. Patient will not receive Vectibix today. Hypokalemia 83154940 E87 .6 Patient returns on April 29, 2023. Potassium is low at 2.9. Will send prescripti on for potassium 20 mEq daily. Will follow-up labs again next week. Deep venou s thrombosis 040739948 I82.409 Patient developed right lower extremity pain [...] duplex. Mixed anxi ety and depressive disorder 977461404 F41.8 Patient returns on November 23, 2023. [...] reports depression has improved. Atopic conjunctivitis 23 6864897 H10.12 Patient with conjunctiv itis of the left eye. Held Vectibix on December 07, 2023. Continue with current therapy. Will follow up again in 2 weeks. Patient returns on July 25, 2024. She does have conjunctiv itis of the left eye. Will hold Vectibix today. Will follow up. Iron defic iency anemia 43156041 D50.9 Currently receiving infusional iron. Will continue to monitor. Insomnia 560349362 G47.0 0 Patient returns on February 08, 2024. She has had difficulty sleeping for most of her life. She has tried multiple medication s without relief. She is tried Mirtazapin e and lorazepam without improvemen t of insomnia. Discussed trying trazodone instead. Will send prescripti on. Will send prescripti on for Requip for restless legs. Restless legs 31874413 G 25.81 Patient returns on February 08, [...] with diflucan and nystain powder. Generalized rash 1123893 06 R21 Patient returns on May 30, [...] is following with the Coumadin clinic at [facility]. Congestive heart failure 62847771 I50.9 Patient returns on June 27, 2024. Since previous visit patient has been diagnosed with congestive heart failure and atrial fibrillati on. She has started lasix and is following with a cardiologi st. Cachexia 859050083 R64 Patient returns on July 25, 2024. Patient has had decreased appetite. Continues to lose weight. She has lost 4 more lbs since previous visit. She is drinking nutritiona l supplement s. Discussed appetite stimulant. Patient previously refused. Now she is agreeable to try Megace. Will send prescripti on. Will follow up for angela oakley [facility] Concerns Section Related Observation LastModified by Organization Detai ls LastModified Time None Recorded Concern Status LastModified by Organization Details LastModified Time None Recorded Payers Encounter Date Sequence Insurance Name Policy Number Policy Bell Covered Member ID Bell Member ID Guarantor Name 07/25/2024 1 [place] Deshawn Roblero [id number] Deshawn Roblero 07/25/2024 2 [employer] (MEDICARE SUPPLEMENT) Deshawn Roblero [id number] Deshawn Roblero Notes Date Note Type Note Provider Name and Address Organization Details Recorded Time 07/25/2024 text/html 78 yo F returns for evaluation of metastatic colon cancer. Patient recently seen on February 17, 2023 in the emergency room at [facility] with abdominal pain. Patient reported epigastric pain [...] 8.2 hematocrit 29.0. MCV 67.9. Platelet count 057080. Normal cell differential. Low serum folate of [...] with metastatic colorectal cancer. Discussed chemotherapy with [place] based regimen with 5FU Leucovorin if [...] is following with the Coumadin clinic at [facility]. She is scheduled for [...] the left eye. Will hold Vectibix today. Patient has had decreased appetite. Continues to lose weight. She has lost 4 more lbs since previous visit. She is drinking nutritional supplements. Discussed appetite stimulant. Patient previously refused. Now she is agreeable to try Megace. Will send prescription. Will follow up for improvement. Will follow up labs. Parish Snider PA-C [address], [place], [address], [place] - [facility] - [place] & [place] 07/25/2024 11:22:44 OBGyn Episode No OBEpisode recorded.
--- OUTSIDE RECORDS SUMMARY | 2024-09-08 21:04 | XMS_ITS | Data Portability ---
Author Organization [facility] BERNIE [facility] & BERNIE Guerrero ADMIN Address [address] [place] [id number] Care Team Providers Care Milling/Polishing Operator Name Role Phone ADDY GONZALES General Surgeon CARLOS A COATS Primary Care Provider VERONIKA RIVER Payroll Benefits Clerk [phone] Assessment No assessment recorded. Plan of Treatment Reminders Order Date Submit Date Provider Last Modified By Organization Details Last Modified Time Details Appointments None recorded. Lab culture, stool [address] [facility], [address] [place], [address], 5 12:12:16 O&P (ova & parasites), stool [address] [facility], [address] [place], [address], 5 12:12:17 C diff screen, stool, reflex PCR [address] [facility], [address] [place], [address], 5 12:12:17 CBC w/ auto diff 2024 025 [facility], [address] [place], [address], 5 16:09:44 CMP, serum or plasma 2024 025 [facility], [address] [place], [address], 5 14:45:24 CBC w/ auto diff 2024 025 [facility], [address] [place], [address], 5 09:46:31 CMP, serum or plasma 2024 025 [facility], [address] [place], [address], 5 09:39:00 carcinoembr yonic Ag, quant, serum or plasma 2024 025 [email or web address] 6 [facility], [address] [place], [address], 5 09:16:06 carcinoembr yonic Ag, quant, serum or plasma 2024 025 [email or web address] 6 [facility], [address] [place], [address], 5 09:07:03 CMP, serum or plasma 2024 0[email or web address] [address] [place], [address], 5 11:45:06 CBC w/ diff 2024 025 [email or web address] 6 [facility], [address] [place], [address], 5 09:07:03 Referral radiation oncologist referral 2024 025 [email or web address] 6 Mary Valencia MD, [address] [place], [address], 5 08:24:10 Procedures None recorded. Surgeries None recorded. Imaging CT, head + brain, w/o contrast 2024 025 [email or web address] [facility] (Centralized Scheduling), [address], [place], [address], 09:16:16 Medication Orders ondansetron 8 mg disintegrat ing tablet [address] [facility] [address], [address] [place], [address], 5 12:29:05 Pepcid 20 mg tablet [address] [facility] [address], [address] [place], [address], 5 12:29:05 megestrol 400 mg/10 mL (40 mg/mL) oral suspension 2024 025 [email or web address] 7 [facility] [address], [address] [place], [address], 5 11:59:15 megestrol 400 mg/10 mL (40 mg/mL) oral suspension [address] [facility] [address], [address] [place], [address], 5 11:45:06 Patient TargetsNo targets recorded. Patient InstructionsNo instructions recorded. Reason for Referral Referring Physician: Hanna Snider, Hematology/Oncology, Encounter Date: 08/10/2024 Results Created Date Observation Date Name Description Value Unit Range Abnormal Flag Note LastModifiedBy Organization Detail LastModifiedTime 06/27/1906/27/2024 CBC AUTO W DIFF WBC 10.0 K/uL 4.0-10 .5 Not Available [facility] ([facility]) [address], [place], [address], 06/27/2024 10:19:00 06/27/1906/27/2024 CBC AUTO W DIFF RBC 4.0 M/mm3 4.2-6. 4 low Not Available [facility] ([facility]) [address], [place], [address], 06/27/2024 10:19:00 06/27/19 25 06/27/2024 CBC AUTO W DIFF HGB 11.5 gm/dL 12.5-1 6.0 low Not Available [facility] ([facility]) [address], [place], [address], 06/27/2024 10:19:00 06/27/19 25 06/27/2024 CBC AUTO W DIFF HCT 36.0 % 37.0-4 7.0 low Not Available [facility] ([facility]) [address] , [place], [address], 06/27/2024 10:19:00 06/27/19 25 06/27/2024 CBC AUTO W DIFF MCV 91.1 fL 78-100 Not Available [facility] ([facility]) [address] , [place], [address], 06/27/2024 10:19:00 06/27/19 25 06/27/2024 CBC AUTO W DIFF MCH 29.1 pg 27-31 Not Available [facility] ([facility]) [address] , [place], [address], 06/27/2024 10:19:00 06/27/19 25 06/27/2024 CBC AUTO W DIFF MCHC 31.9 g/dL 32-36 low Not Available [facility] ([facility]) [address] , [place], [address], 06/27/2024 10:19:00 06/27/19 25 06/27/2024 CBC AUTO W DIFF RDW 15.9 % 11.5-1 4.0 high Not Available [facility] ([facility]) [address] [place], [address], 06/27/2024 10:19:00 06/27/19 25 06/27/2024 CBC AUTO W DIFF platelet count 311 K/uL 150-45 0 Not Available [facility] ([facility]) [address] , [place], [address], 06/27/2024 10:19:00 06/27/19 25 06/27/2024 CBC AUTO W DIFF MPV 9.1 fL 6-9.5 Not Available [facility] ([facility]) [address] , [place], [address], 06/27/2024 10:19:00 06/27/19 25 06/27/2024 CBC AUTO W DIFF neutrophil% 70.9 % 43-65 high Not Available [facility] ([facility]) [address], [place], [address], 06/27/2024 10:19:00 06/27/19 25 06/27/2024 CBC AUTO W DIFF lymphocyte% 13.3 % 20.5-4 5.5 low Not Available [facility] ([facility]) [address] , [place], [address], 06/27/2024 10:19:00 06/27/19 25 06/27/2024 CBC AUTO W DIFF monocyte% 7.2 % 5.5-11 .7 Not Available [facility] ([facility]) [address] [place], [address], 06/27/2024 10:19:00 06/27/19 25 06/27/2024 CBC AUTO W DIFF eosinophil% 7.4 % 0.9-2. 9 high Not Available [facility] ([facility]) [address] [place], [address], 06/27/2024 10:19:00 06/27/19 25 06/27/2024 CBC AUTO W DIFF basophil% 0.8 % 0.2-1. 0 Not Available [facility] ([facility]) [address], [place], [address], 06/27/2024 10:19:00 06/27/19 25 06/27/2024 CBC AUTO W DIFF immature granulocytes % 0.4 % 0.0-0. 8 Not Available [facility] ([facility]) [address] [facility], [place], [address], 06/27/2024 10:19:00 06/27/19 25 06/27/2024 CBC AUTO W DIFF nucleated red blood cells % 0.0 % Not Available [facility] ([facility]) [address] [facility], [place], [address], 06/27/2024 10:19:00 06/27/19 25 06/27/2024 CBC AUTO W DIFF neutrophil# 7.1 K/uL 2.2-4. 8 high Not Available [facility] ([facility]) [address] [facility], [place], [address], 06/27/2024 10:19:00 06/27/19 25 06/27/2024 CBC AUTO W DIFF lymphocyte# 1.3 cell/ mcL 1.3-2. 9 Not Available [facility] ([facility]) [address] [facility], [place], [address], 06/27/2024 10:19:00 06/27/19 25 06/27/2024 CBC AUTO W DIFF monocyte# 0.7 cell/ mcL 0.3-0. 8 Not Available [facility] ([facility]) [address] [place], [address], 06/27/2024 10:19:00 06/27/19 25 06/27/2024 CBC AUTO W DIFF eosinophil# 0.7 cell/ mcL 0-0.2 high Not Available [facility] ([facility]) [address] [facility], [place], [address], 06/27/2024 10:19:00 06/27/19 25 06/27/2024 CBC AUTO W DIFF basophil# 0.1 cell/ mcL 0.0-1. 0 Not Available [facility] ([facility]) [address], [place], [address], 06/27/2024 10:19:00 06/27/19 25 06/27/2024 CBC AUTO W DIFF immature gramulocytes # 0.04 K/uL Not Available [facility] ([facility]) [address], [place], [address], 06/27/2024 10:19:00 06/27/19 25 06/27/2024 CBC AUTO W DIFF nucleated red blood cells # 0.00 K/uL Not Available [facility] ([facility]) [address], [place], [address], 06/27/2024 10:19:00 06/27/19 25 06/27/2024 CBC AUTO W DIFF manual differential NO Not Available [facility] ([facility]) [address], [place], [address], 06/27/2024 10:19:00 06/27/19 25 06/27/2024 PT (PROT HROMB IN TIME) W INR prothrombin time 34.6 secon ds 9.3-11 .4 high Not Available [facility] ([facility]) [address], [place], [address], 06/27/2024 10:32:54 06/27/19 25 06/27/2024 PT (PROT HROMB IN TIME) W INR INR 3.5 ratio 0.97-1 .05 high INR is inten ded to be used ONLY for patie nts on stabl e oral antic oagul ant thera py. Thera peuti c Range s: 2.0-3 .0 Usual Thera peuti c Range 2.5-3 .5 For patie nts with histo ry of Multi ple Deep Vein Throm bus or Mecha nical Heart Valve s Not Available [facility] ([facility]) [address], [place], [address], 06/27/2024 10:32:54 06/27/19 25 06/27/2024 COMP METAB OLIC PANEL sodium 140 mmol/ L 136-14 5 Not Available [facility] ([facility]) [address] [place], [address], 06/27/2024 10:33:59 06/27/19 25 06/27/2024 COMP METAB OLIC PANEL potassium 3.3 mmol/ L 3.6-5. 0 low Not Available [facility] ([facility]) [address], [place], [address], 06/27/2024 10:33:59 06/27/19 25 06/27/2024 COMP METAB OLIC PANEL chloride 100 mmol/ L 98-107 Not Available [facility] ([facility]) [address] [facility], [place], [address], 06/27/2024 10:33:59 06/27/19 25 06/27/2024 COMP METAB OLIC PANEL carbon dioxide 33.1 mmol/ L 21.0-3 2.0 high Not Available [facility] ([facility]) [address] [place], [address], 06/27/2024 10:33:59 06/27/19 25 06/27/2024 COMP METAB OLIC PANEL anion gap 10.2 Not Available [facility] ([facility]) [address] [place], [address], 06/27/2024 10:33:59 06/27/19 25 06/27/2024 COMP METAB OLIC PANEL glucose 151 mg/dL 70-120 high Not Available [facility] ([facility]) [address] [place], [address], 06/27/2024 10:33:59 06/27/19 25 06/27/2024 COMP METAB OLIC PANEL BUN 15 mg/dL 7-18 Not Available [facility] ([facility]) [address], [place], [address], 06/27/2024 10:33:59 06/27/19 25 06/27/2024 COMP METAB OLIC PANEL creatinine 1.0 mg/dL 0.6-1. 3 Not Available [facility] ([facility]) [address], [place], [address], 06/27/2024 10:33:59 06/27/19 25 06/27/2024 COMP METAB OLIC PANEL glomerular filtration rate 58 mlper min 60- low GFR LIMIT ATION : The eGFR equat ion CKD-E PI 2020 is not appli cable for pedia tric patie nts or great er than 90 years of age. The follo wing condi tions may alter the GFR resul t: extre mes in body size, malnu triti on or obesi ty, skele azucena muscl e disea se, parap legia or quadr ipleg ia, veget sukhwinder diet or rapid ly albrecht ing kiney funct ion. Not Available [facility] ([facility]) [address] , [place], [address], 06/27/2024 10:33:59 06/27/19 25 06/27/2024 COMP METAB OLIC PANEL total protein 6.9 g/dL 6.4-8. 2 Not Available [facility] ([facility]) [address], [place], [address], 06/27/2024 10:33:59 06/27/19 25 06/27/2024 COMP METAB OLIC PANEL albumin 3.0 g/dL 3.4-5. 0 low Not Available [facility] ([facility]) [address], [place], [address], 06/27/2024 10:33:59 06/27/19 25 06/27/2024 COMP METAB OLIC PANEL globulin 3.9 Not Available [facility] ([facility]) [address] , [place], [address], 06/27/2024 10:33:59 06/27/19 25 06/27/2024 COMP METAB OLIC PANEL alb/glob ratio 0.8 0.7-2 Not Available [facility] ([facility]) [address] , [place], [address], 06/27/2024 10:33:59 06/27/19 25 06/27/2024 COMP METAB OLIC PANEL calcium 9.2 mg/dL 8.5-10 .5 Not Available [facility] ([facility]) [address], [place], [address], 06/27/2024 10:33:59 06/27/19 25 06/27/2024 COMP METAB OLIC PANEL bilirubin total 0.70 mg/dL 0.10-1 .00 Not Available [facility] ([facility]) [address], [place], [address], 06/27/2024 10:33:59 06/27/19 25 06/27/2024 COMP METAB OLIC PANEL AST (SGOT) 41 U/L 0-37 high Not Available [facility] ([facility]) [address], [place], [address], 06/27/2024 10:33:59 06/27/19 25 06/27/2024 COMP METAB OLIC PANEL ALT (SGPT) 15 U/L 0-65 Not Available [facility] ([facility]) [address], [place], [address], 06/27/2024 10:33:59 06/27/19 25 06/27/2024 COMP METAB OLIC PANEL alk phosphatase 217 U/L 46-116 high Not Available [facility] ([facility]) [address] [place], [address], 06/27/2024 10:33:59 06/27/19 25 06/27/2024 MAGNE SIUM magnesium 2.2 mg/dL 1.8-2. 4 Not Available [facility] ([facility]) [address] [facility], [place], [address], 06/27/2024 10:34:02 06/27/19 25 06/27/2024 IRON STUDY (IRON /TIBC /%SAT ) iron 24 mcg/m L 40-180 low Not Available [facility] ([facility]) [address] [facility], [place], [address], 06/27/2024 11:58:15 06/27/19 25 06/27/2024 IRON STUDY (IRON /TIBC /%SAT ) TIBC 230 mcg/d L 250-45 0 low Not Available [facility] ([facility]) [address] [facility], [place], [address], 06/27/2024 11:58:15 06/27/19 25 06/27/2024 IRON STUDY (IRON /TIBC /%SAT ) %sat 10 15-55 low Not Available [facility] ([facility]) [address] [facility], [place], [address], 06/27/2024 11:58:15 06/27/19 25 06/27/2024 JUAN A TIN ferritin, serum 458 NG/mL 3-244 high Not Available [facility] ([facility]) [address] [facility], [place], [address], 06/27/2024 12:21:28 06/27/19 25 06/28/2024 CEA cea 49.7 NG/mL 0.0-4. 7 high Nonsm okers <3.9 Smoke rs <5.6 . Lois Diagn ostic s Elect lois milum inesc ence Immun oassa y (ECLI A) . Value s obtai lexi with diffe rent assay metho ds or kits canno t be used inter trena smart . Resul ts canno t be inter prete d as absol [place] evide nce of the prese nce or absen ce of [facility] se. Perfo rmed at: - [facility] [address] [facility], [place] [id number] Lab Direc tor: Tate tsaton PhD, Phone : [phone] Not Available [facility] ([facility]) [address], [place], [address], 06/28/2024 13:09:29 07/11/19 25 07/11/2024 CBC AUTO W DIFF WBC 6.9 K/uL 4.0-10 .5 Not Available [facility] ([facility]) [address] [facility], [place], [address], 07/11/2024 10:30:50 07/11/19 25 07/11/2024 CBC AUTO W DIFF RBC 3.8 M/mm3 4.2-6. 4 low Not Available [facility] ([facility]) [address], [place], [address], 07/11/2024 10:30:50 07/11/19 25 07/11/2024 CBC AUTO W DIFF HGB 11.0 gm/dL 12.5-1 6.0 low Not Available [facility] ([facility]) [address] [facility], [place], [address], 07/11/2024 10:30:50 07/11/19 25 07/11/2024 CBC AUTO W DIFF HCT 34.5 % 37.0-4 7.0 low Not Available [facility] ([facility]) [address] [place], [address], 07/11/2024 10:30:50 07/11/19 25 07/11/2024 CBC AUTO W DIFF MCV 92.0 fL 78-100 Not Available [facility] ([facility]) [address] [place], [address], 07/11/2024 10:30:50 07/11/19 25 07/11/2024 CBC AUTO W DIFF MCH 29.3 pg 27-31 Not Available [facility] ([facility]) [address] , [place], [address], 07/11/2024 10:30:50 07/11/19 25 07/11/2024 CBC AUTO W DIFF MCHC 31.9 g/dL 32-36 low Not Available [facility] ([facility]) [address], [place], [address], 07/11/2024 10:30:50 07/11/19 25 07/11/2024 CBC AUTO W DIFF RDW 15.9 % 11.5-1 4.0 high Not Available [facility] ([facility]) [address], [place], [address], 07/11/2024 10:30:50 07/11/19 25 07/11/2024 CBC AUTO W DIFF platelet count 267 K/uL 150-45 0 Not Available [facility] ([facility]) [address] [place], [address], 07/11/2024 10:30:50 07/11/19 25 07/11/2024 CBC AUTO W DIFF MPV 9.1 fL 6-9.5 Not Available [facility] ([facility]) [address] [place], [address], 07/11/2024 10:30:50 07/11/19 25 07/11/2024 CBC AUTO W DIFF neutrophil% 66.2 % 43-65 high Not Available [facility] ([facility]) [address] [place], [address], 07/11/2024 10:30:50 07/11/19 25 07/11/2024 CBC AUTO W DIFF lymphocyte% 18.6 % 20.5-4 5.5 low Not Available [facility] ([facility]) [address], [place], [address], 07/11/2024 10:30:50 07/11/19 25 07/11/2024 CBC AUTO W DIFF monocyte% 11.5 % 5.5-11 .7 Not Available [facility] ([facility]) [address], [place], [address], 07/11/2024 10:30:50 07/11/19 25 07/11/2024 CBC AUTO W DIFF eosinophil% 2.7 % 0.9-2. 9 Not Available [facility] ([facility]) [address], [place], [address], 07/11/2024 10:30:50 07/11/19 25 07/11/2024 CBC AUTO W DIFF basophil% 0.6 % 0.2-1. 0 Not Available [facility] ([facility]) [address], [place], [address], 07/11/2024 10:30:50 07/11/19 25 07/11/2024 CBC AUTO W DIFF immature granulocytes % 0.4 % 0.0-0. 8 Not Available [facility] ([facility]) [address], [place], [address], 07/11/2024 10:30:50 07/11/19 25 07/11/2024 CBC AUTO W DIFF nucleated red blood cells % 0.0 % Not Available [facility] ([facility]) [address], [place], [address], 07/11/2024 10:30:50 07/11/19 25 07/11/2024 CBC AUTO W DIFF neutrophil# 4.6 K/uL 2.2-4. 8 Not Available [facility] ([facility]) [address] [place], [address], 07/11/2024 10:30:50 07/11/19 25 07/11/2024 CBC AUTO W DIFF lymphocyte# 1.3 cell/ mcL 1.3-2. 9 Not Available [facility] ([facility]) [address] [facility], [place], [address], 07/11/2024 10:30:50 07/11/19 25 07/11/2024 CBC AUTO W DIFF monocyte# 0.8 cell/ mcL 0.3-0. 8 Not Available [facility] ([facility]) [address] [facility], [place], [address], 07/11/2024 10:30:50 07/11/19 25 07/11/2024 CBC AUTO W DIFF eosinophil# 0.2 cell/ mcL 0-0.2 Not Available [facility] ([facility]) [address] [facility], [place], [address], 07/11/2024 10:30:50 07/11/19 25 07/11/2024 CBC AUTO W DIFF basophil# 0.0 cell/ mcL 0.0-1. 0 Not Available [facility] ([facility]) [address] [facility], [place], [address], 07/11/2024 10:30:50 07/11/19 25 07/11/2024 CBC AUTO W DIFF immature gramulocytes # 0.03 K/uL Not Available [facility] ([facility]) [address] [place], [address], 07/11/2024 10:30:50 07/11/19 25 07/11/2024 CBC AUTO W DIFF nucleated red blood cells # 0.00 K/uL Not Available [facility] ([facility]) [address] [place], [address], 07/11/2024 10:30:50 07/11/19 25 07/11/2024 CBC AUTO W DIFF manual differential NO Not Available [facility] ([facility]) [address] , [place], [address], 07/11/2024 10:30:50 07/11/19 25 07/11/2024 COMP METAB OLIC PANEL sodium 137 mmol/ L 136-14 5 Not Available [facility] ([facility]) [address] , [place], [address], 07/11/2024 10:45:53 07/11/19 25 07/11/2024 COMP METAB OLIC PANEL potassium 3.4 mmol/ L 3.6-5. 0 low Not Available [facility] ([facility]) [address] , [place], [address], 07/11/2024 10:45:53 07/11/19 25 07/11/2024 COMP METAB OLIC PANEL chloride 100 mmol/ L 98-107 Not Available [facility] ([facility]) [address] , [place], [address], 07/11/2024 10:45:53 07/11/19 25 07/11/2024 COMP METAB OLIC PANEL carbon dioxide 28.2 mmol/ L 21.0-3 2.0 Not Available [facility] ([facility]) [address] , [place], [address], 07/11/2024 10:45:53 07/11/19 25 07/11/2024 COMP METAB OLIC PANEL anion gap 12.2 Not Available [facility] ([facility]) [address] , [place], [address], 07/11/2024 10:45:53 07/11/19 25 07/11/2024 COMP METAB OLIC PANEL glucose 208 mg/dL 70-120 high Not Available [facility] ([facility]) [address] , [place], [address], 07/11/2024 10:45:53 07/11/19 25 07/11/2024 COMP METAB OLIC PANEL BUN 16 mg/dL 7-18 Not Available [facility] ([facility]) [address], [place], [address], 07/11/2024 10:45:53 07/11/19 25 07/11/2024 COMP METAB OLIC PANEL creatinine 1.2 mg/dL 0.6-1. 3 Not Available [facility] ([facility]) [address], [place], [address], 07/11/2024 10:45:53 07/11/19 25 07/11/2024 COMP METAB OLIC PANEL glomerular filtration rate 47 mlper min 60- low GFR LIMIT ATION : The eGFR equat ion CKD-E PI 2020 is not appli cable for pedia tric patie nts or great er than 90 years of age. The follo wing condi tions may alter the GFR resul t: extre mes in body size, malnu triti on or obesi ty, skele azucena muscl e disea se, parap legia or quadr ipleg ia, veget sukhwinder diet or rapid ly albrecht ing kiney funct ion. Not Available [facility] ([facility]) [address] , [place], [address], 07/11/2024 10:45:53 07/11/19 25 07/11/2024 COMP METAB OLIC PANEL total protein 6.6 g/dL 6.4-8. 2 Not Available [facility] ([facility]) [address] , [place], [address], 07/11/2024 10:45:53 07/11/19 25 07/11/2024 COMP METAB OLIC PANEL albumin 2.3 g/dL 3.4-5. 0 low Not Available [facility] ([facility]) [address], [place], [address], 07/11/2024 10:45:53 07/11/19 25 07/11/2024 COMP METAB OLIC PANEL globulin 4.3 Not Available [facility] ([facility]) [address], [place], [address], 07/11/2024 10:45:53 07/11/19 25 07/11/2024 COMP METAB OLIC PANEL alb/glob ratio 0.5 0.7-2 low Not Available [facility] ([facility]) [address], [place], [address], 07/11/2024 10:45:53 07/11/19 25 07/11/2024 COMP METAB OLIC PANEL calcium 8.9 mg/dL 8.5-10 .5 Not Available [facility] ([facility]) [address], [place], [address], 07/11/2024 10:45:53 07/11/19 25 07/11/2024 COMP METAB OLIC PANEL bilirubin total 0.50 mg/dL 0.10-1 .00 Not Available [facility] ([facility]) [address], [place], [address], 07/11/2024 10:45:53 07/11/19 25 07/11/2024 COMP METAB OLIC PANEL AST (SGOT) 50 U/L 0-37 high Not Available [facility] ([facility]) [address], [place], [address], 07/11/2024 10:45:53 07/11/19 25 07/11/2024 COMP METAB OLIC PANEL ALT (SGPT) 20 U/L 0-65 Not Available [facility] ([facility]) [address], [place], [address], 07/11/2024 10:45:53 07/11/19 25 07/11/2024 COMP METAB OLIC PANEL alk phosphatase 248 U/L 46-116 high Not Available [facility] ([facility]) [address], [place], [address], 07/11/2024 10:45:53 07/11/19 25 07/11/2024 MAGNE SIUM magnesium 2.3 mg/dL 1.8-2. 4 Not Available [facility] ([facility]) [address] [facility], [place], [address], 07/11/2024 10:45:56 07/11/19 25 07/11/2024 PT (PROT HROMB IN TIME) W INR prothrombin time 14.3 secon ds 9.3-11 .4 high Not Available [facility] ([facility]) [address] [facility], [place], [address], 07/11/2024 10:59:01 07/11/19 25 07/11/2024 PT (PROT HROMB IN TIME) W INR INR 1.4 ratio 0.97-1 .05 high INR is inten ded to be used ONLY for patie nts on stabl e oral antic oagul ant thera py. Thera peuti c Range s: 2.0-3 .0 Usual Thera peuti c Range 2.5-3 .5 For patie nts with histo ry of Multi ple Deep Vein Throm bus or Mecha nical Heart Valve s Not Available [facility] ([facility]) [address], [place], [address], 07/11/2024 10:59:01 07/11/19 25 07/12/2024 CEA cea 132.0 NG/mL 0.0-4. 7 high Nonsm okers <3.9 Smoke rs <5.6 . Lois Diagn ostic s Elect lois milum inesc ence Immun oassa y (ECLI A) . Value s obtai lexi with diffe rent assay metho ds or kits canno t be used inter trena smart . Resul ts canno t be inter prete d as [place] evide nce of the prese nce or absen ce of [facility] se. Perfo rmed at: - [facility] [address] [facility], [place] [id number] [facility]2 Lab Direc tor: Tate staton PhD, Phone : [phone] Not Available [facility] ([facility]) [address] , [place], [address], 07/12/2024 13:09:06 07/25/19 25 07/25/2024 MAGNE SIUM magnesium 1.8 mg/dL 1.8-2. 4 Not Available [facility] ([facility]) [address] , [place], [address], 07/25/2024 10:51:25 07/25/19 25 07/25/2024 CBC AUTO W DIFF WBC 9.0 K/uL 4.0-10 .5 Not Available [facility] ([facility]) [address] , [place], [address], 07/25/2024 10:52:22 07/25/19 25 07/25/2024 CBC AUTO W DIFF RBC 4.3 M/mm3 4.2-6. 4 Not Available [facility] ([facility]) [address] , [place], [address], 07/25/2024 10:52:22 07/25/19 25 07/25/2024 CBC AUTO W DIFF HGB 12.6 gm/dL 12.5-1 6.0 Not Available [facility] ([facility]) [address] , [place], [address], 07/25/2024 10:52:22 07/25/19 25 07/25/2024 CBC AUTO W DIFF HCT 39.6 % 37.0-4 7.0 Not Available [facility] ([facility]) [address] , [place], [address], 07/25/2024 10:52:22 07/25/19 25 07/25/2024 CBC AUTO W DIFF MCV 92.7 fL 78-100 Not Available [facility] ([facility]) [address] , [place], [address], 07/25/2024 10:52:22 07/25/19 25 07/25/2024 CBC AUTO W DIFF MCH 29.5 pg 27-31 Not Available [facility] ([facility]) [address] , [place], [address], 07/25/2024 10:52:22 07/25/19 25 07/25/2024 CBC AUTO W DIFF MCHC 31.8 g/dL 32-36 low Not Available [facility] ([facility]) [address], [place], [address], 07/25/2024 10:52:22 07/25/19 25 07/25/2024 CBC AUTO W DIFF RDW 16.8 % 11.5-1 4.0 high Not Available [facility] ([facility]) [address], [place], [address], 07/25/2024 10:52:22 07/25/19 25 07/25/2024 CBC AUTO W DIFF platelet count 234 K/uL 150-45 0 Not Available [facility] ([facility]) [address], [place], [address], 07/25/2024 10:52:22 07/25/19 25 07/25/2024 CBC AUTO W DIFF MPV 9.2 fL 6-9.5 Not Available [facility] ([facility]) [address] [place], [address], 07/25/2024 10:52:22 07/25/19 25 07/25/2024 CBC AUTO W DIFF neutrophil% 70.3 % 43-65 high Not Available [facility] ([facility]) [address] [place], [address], 07/25/2024 10:52:22 07/25/19 25 07/25/2024 CBC AUTO W DIFF lymphocyte% 16.5 % 20.5-4 5.5 low Not Available [facility] ([facility]) [address] [place], [address], 07/25/2024 10:52:22 07/25/19 25 07/25/2024 CBC AUTO W DIFF monocyte% 7.0 % 5.5-11 .7 Not Available [facility] ([facility]) [address], [place], [address], 07/25/2024 10:52:22 07/25/19 25 07/25/2024 CBC AUTO W DIFF eosinophil% 5.3 % 0.9-2. 9 high Not Available [facility] ([facility]) [address] [facility], [place], [address], 07/25/2024 10:52:22 07/25/19 25 07/25/2024 CBC AUTO W DIFF basophil% 0.6 % 0.2-1. 0 Not Available [facility] ([facility]) [address] [facility], [place], [address], 07/25/2024 10:52:22 07/25/19 25 07/25/2024 CBC AUTO W DIFF immature granulocytes % 0.3 % 0.0-0. 8 Not Available [facility] ([facility]) [address] [facility], [place], [address], 07/25/2024 10:52:22 07/25/19 25 07/25/2024 CBC AUTO W DIFF nucleated red blood cells % 0.0 % Not Available [facility] ([facility]) [address] [facility], [place], [address], 07/25/2024 10:52:22 07/25/19 25 07/25/2024 CBC AUTO W DIFF neutrophil# 6.3 K/uL 2.2-4. 8 high Not Available [facility] ([facility]) [address] [facility], [place], [address], 07/25/2024 10:52:22 07/25/19 25 07/25/2024 CBC AUTO W DIFF lymphocyte# 1.5 cell/ mcL 1.3-2. 9 Not Available [facility] ([facility]) [address], [place], [address], 07/25/2024 10:52:22 07/25/19 25 07/25/2024 CBC AUTO W DIFF monocyte# 0.6 cell/ mcL 0.3-0. 8 Not Available [facility] ([facility]) [address] [facility], [place], [address], 07/25/2024 10:52:22 07/25/19 25 07/25/2024 CBC AUTO W DIFF eosinophil# 0.5 cell/ mcL 0-0.2 high Not Available [facility] ([facility]) [address] [facility], [place], [address], 07/25/2024 10:52:22 07/25/19 25 07/25/2024 CBC AUTO W DIFF basophil# 0.1 cell/ mcL 0.0-1. 0 Not Available [facility] ([facility]) [address] [facility], [place], [address], 07/25/2024 10:52:22 07/25/19 25 07/25/2024 CBC AUTO W DIFF immature gramulocytes # 0.03 K/uL Not Available [facility] ([facility]) [address] [facility], [place], [address], 07/25/2024 10:52:22 07/25/19 25 07/25/2024 CBC AUTO W DIFF nucleated red blood cells # 0.00 K/uL Not Available [facility] ([facility]) [address] [facility], [place], [address], 07/25/2024 10:52:22 07/25/19 25 07/25/2024 CBC AUTO W DIFF manual differential NO Not Available [facility] ([facility]) [address] , [place], [address], 07/25/2024 10:52:22 07/25/19 25 07/25/2024 COMP METAB OLIC PANEL sodium 137 mmol/ L 136-14 5 Not Available [facility] ([facility]) [address], [place], [address], 07/25/2024 10:58:53 07/25/19 25 07/25/2024 COMP METAB OLIC PANEL potassium 3.7 mmol/ L 3.6-5. 0 Not Available [facility] ([facility]) [address], [place], [address], 07/25/2024 10:58:53 07/25/19 25 07/25/2024 COMP METAB OLIC PANEL chloride 100 mmol/ L 98-107 Not Available [facility] ([facility]) [address], [place], [address], 07/25/2024 10:58:53 07/25/19 25 07/25/2024 COMP METAB OLIC PANEL carbon dioxide 25.4 mmol/ L 21.0-3 2.0 Not Available [facility] ([facility]) [address], [place], [address], 07/25/2024 10:58:53 07/25/19 25 07/25/2024 COMP METAB OLIC PANEL anion gap 15.3 Not Available [facility] ([facility]) [address], [place], [address], 07/25/2024 10:58:53 07/25/19 25 07/25/2024 COMP METAB OLIC PANEL glucose 169 mg/dL 70-120 high Not Available [facility] ([facility]) [address], [place], [address], 07/25/2024 10:58:53 07/25/19 25 07/25/2024 COMP METAB OLIC PANEL BUN 17 mg/dL 7-18 Not Available [facility] ([facility]) [address], [place], [address], 07/25/2024 10:58:53 07/25/19 25 07/25/2024 COMP METAB OLIC PANEL creatinine 0.9 mg/dL 0.6-1. 3 Not Available [facility] ([facility]) [address], [place], [address], 07/25/2024 10:58:53 07/25/19 25 07/25/2024 COMP METAB OLIC PANEL glomerular filtration rate 66 mlper min 60- GFR LIMIT ATION : The eGFR equat ion CKD-E PI 2020 is not appli cable for pedia tric patie nts or great er than 90 years of age. The follo wing condi tions may alter the GFR resul t: extre mes in body size, malnu triti on or obesi ty, skele azucena muscl e disea se, parap legia or quadr ipleg ia, veget sukhwinder diet or rapid ly albrecht ing kiney funct ion. Not Available [facility] ([facility]) [address] , [place], [address], 07/25/2024 10:58:53 07/25/19 25 07/25/2024 COMP METAB OLIC PANEL total protein 7.1 g/dL 6.4-8. 2 Not Available [facility] ([facility]) [address], [place], [address], 07/25/2024 10:58:53 07/25/19 25 07/25/2024 COMP METAB OLIC PANEL albumin 2.8 g/dL 3.4-5. 0 low Not Available [facility] ([facility]) [address], [place], [address], 07/25/2024 10:58:53 07/25/19 25 07/25/2024 COMP METAB OLIC PANEL globulin 4.3 Not Available [facility] ([facility]) [address] , [place], [address], 07/25/2024 10:58:53 07/25/19 25 07/25/2024 COMP METAB OLIC PANEL alb/glob ratio 0.7 0.7-2 Not Available [facility] ([facility]) [address] , [place], [address], 07/25/2024 10:58:53 07/25/19 25 07/25/2024 COMP METAB OLIC PANEL calcium 9.0 mg/dL 8.5-10 .5 Not Available [facility] ([facility]) [address], [place], [address], 07/25/2024 10:58:53 07/25/19 25 07/25/2024 COMP METAB OLIC PANEL bilirubin total 0.60 mg/dL 0.10-1 .00 Not Available [facility] ([facility]) [address], [place], [address], 07/25/2024 10:58:53 07/25/19 25 07/25/2024 COMP METAB OLIC PANEL AST (SGOT) 33 U/L 0-37 Not Available [facility] ([facility]) [address], [place], [address], 07/25/2024 10:58:53 07/25/19 25 07/25/2024 COMP METAB OLIC PANEL ALT (SGPT) 20 U/L 0-65 Not Available [facility] ([facility]) [address], [place], [address], 07/25/2024 10:58:53 07/25/19 25 07/25/2024 COMP METAB OLIC PANEL alk phosphatase 224 U/L 46-116 high Not Available [facility] ([facility]) [address], [place], [address], 07/25/2024 10:58:53 07/25/19 25 07/25/2024 PT (PROT HROMB IN TIME) W INR prothrombin time 27.2 secon ds 9.3-11 .4 high Not Available [facility] ([facility]) [address] , [place], [address], 07/25/2024 11:01:05 07/25/19 25 07/25/2024 PT (PROT HROMB IN TIME) W INR INR 2.8 ratio 0.97-1 .05 high INR is inten ded to be used ONLY for patie nts on stabl e oral antic oagul ant thera py. Thera peuti c Range s: 2.0-3 .0 Usual Thera peuti c Range 2.5-3 .5 For patie nts with histo ry of Multi ple Deep Vein Throm bus or Mecha nical Heart Valve s Not Available [facility] ([facility]) [address] , [place], [address], 07/25/2024 11:01:05 07/25/19 25 07/26/2024 CEA cea 111.0 NG/mL 0.0-4. 7 high Nonsm okers <3.9 Smoke rs <5.6 . Lois Diagn ostic s Elect lois milum inesc ence Immun oassa y (ECLI A) . Value s obtai lexi with diffe rent assay metho ds or kits canno t be used inter albrecht [place] . Resul ts canno t be inter prete d as absol [place] evide nce of the prese nce or absen ce of [facility] se. Perfo rmed at: CB - [facility] [address] [place] [address] Lab Direc tor: Tate staton PhD, Phone : [phone] Not Available [facility] ([facility]) [address] , [place], [address], 07/26/2024 08:13:00 08/11/19 25 08/10/2024 CBC AUTO W DIFF WBC 10.3 K/uL 4.0-10 .5 Not Available [facility] ([facility]) [address], [place], [address], 08/10/2024 10:33:28 08/11/19 25 08/10/2024 CBC AUTO W DIFF RBC 4.0 M/mm3 4.2-6. 4 low Not Available [facility] ([facility]) [address] , [place], [address], 08/10/2024 10:33:28 08/11/19 25 08/10/2024 CBC AUTO W DIFF HGB 11.9 gm/dL 12.5-1 6.0 low Not Available [facility] ([facility]) [address] , [place], [address], 08/10/2024 10:33:28 08/11/19 25 08/10/2024 CBC AUTO W DIFF HCT 36.4 % 37.0-4 7.0 low Not Available [facility] ([facility]) [address] , [place], [address], 08/10/2024 10:33:28 08/11/19 25 08/10/2024 CBC AUTO W DIFF MCV 91.7 fL 78-100 Not Available [facility] ([facility]) [address] , [place], [address], 08/10/2024 10:33:28 08/11/19 25 08/10/2024 CBC AUTO W DIFF MCH 30.0 pg 27-31 Not Available [facility] ([facility]) [address] , [place], [address], 08/10/2024 10:33:28 08/11/19 25 08/10/2024 CBC AUTO W DIFF MCHC 32.7 g/dL 32-36 Not Available [facility] ([facility]) [address] , [place], [address], 08/10/2024 10:33:28 08/11/19 25 08/10/2024 CBC AUTO W DIFF RDW 16.3 % 11.5-1 4.0 high Not Available [facility] ([facility]) [address], [place], [address], 08/10/2024 10:33:28 08/11/19 25 08/10/2024 CBC AUTO W DIFF platelet count 227 K/uL 150-45 0 Not Available [facility] ([facility]) [address], [place], [address], 08/10/2024 10:33:28 08/11/19 25 08/10/2024 CBC AUTO W DIFF MPV 9.6 fL 6-9.5 high Not Available [facility] ([facility]) [address] , [place], [address], 08/10/2024 10:33:28 08/11/19 25 08/10/2024 CBC AUTO W DIFF neutrophil% 71.2 % 43-65 high Not Available [facility] ([facility]) [address] , [place], [address], 08/10/2024 10:33:28 08/11/19 25 08/10/2024 CBC AUTO W DIFF lymphocyte% 12.6 % 20.5-4 5.5 low Not Available [facility] ([facility]) [address] , [place], [address], 08/10/2024 10:33:28 08/11/19 25 08/10/2024 CBC AUTO W DIFF monocyte% 6.6 % 5.5-11 .7 Not Available [facility] ([facility]) [address] , [place], [address], 08/10/2024 10:33:28 08/11/19 25 08/10/2024 CBC AUTO W DIFF eosinophil% 8.6 % 0.9-2. 9 high Not Available [facility] ([facility]) [address] [place], [address], 08/10/2024 10:33:28 08/11/19 25 08/10/2024 CBC AUTO W DIFF basophil% 0.7 % 0.2-1. 0 Not Available [facility] ([facility]) [address] [facility], [place], [address], 08/10/2024 10:33:28 08/11/19 25 08/10/2024 CBC AUTO W DIFF immature granulocytes % 0.3 % 0.0-0. 8 Not Available [facility] ([facility]) [address] [facility], [place], [address], 08/10/2024 10:33:28 08/11/19 25 08/10/2024 CBC AUTO W DIFF nucleated red blood cells % 0.0 % Not Available [facility] ([facility]) [address] [facility], [place], [address], 08/10/2024 10:33:28 08/11/19 25 08/10/2024 CBC AUTO W DIFF neutrophil# 7.3 K/uL 2.2-4. 8 high Not Available [facility] ([facility]) [address] [place], [address], 08/10/2024 10:33:28 08/11/19 25 08/10/2024 CBC AUTO W DIFF lymphocyte# 1.3 cell/ mcL 1.3-2. 9 Not Available [facility] ([facility]) [address] [place], [address], 08/10/2024 10:33:28 08/11/19 25 08/10/2024 CBC AUTO W DIFF monocyte# 0.7 cell/ mcL 0.3-0. 8 Not Available [facility] ([facility]) [address] [place], [address], 08/10/2024 10:33:28 08/11/19 25 08/10/2024 CBC AUTO W DIFF eosinophil# 0.9 cell/ mcL 0-0.2 high Not Available [facility] ([facility]) [address] , [place], [address], 08/10/2024 10:33:28 08/11/19 25 08/10/2024 CBC AUTO W DIFF basophil# 0.1 cell/ mcL 0.0-1. 0 Not Available [facility] ([facility]) [address] , [place], [address], 08/10/2024 10:33:28 08/11/19 25 08/10/2024 CBC AUTO W DIFF immature gramulocytes # 0.03 K/uL Not Available [facility] ([facility]) [address] , [place], [address], 08/10/2024 10:33:28 08/11/19 25 08/10/2024 CBC AUTO W DIFF nucleated red blood cells # 0.00 K/uL Not Available [facility] ([facility]) [address] , [place], [address], 08/10/2024 10:33:28 08/11/19 25 08/10/2024 CBC AUTO W DIFF manual differential NO Not Available [facility] ([facility]) [address] , [place], [address], 08/10/2024 10:33:28 08/11/19 25 08/10/2024 COMP METAB OLIC PANEL sodium 140 mmol/ L 136-14 5 Not Available [facility] ([facility]) [address], [place], [address], 08/10/2024 10:56:34 08/11/19 25 08/10/2024 COMP METAB OLIC PANEL potassium 4.1 mmol/ L 3.6-5. 0 Not Available [facility] ([facility]) [address] , [place], [address], 08/10/2024 10:56:34 08/11/19 25 08/10/2024 COMP METAB OLIC PANEL chloride 104 mmol/ L 98-107 Not Available [facility] ([facility]) [address] , [place], [address], 08/10/2024 10:56:34 08/11/19 25 08/10/2024 COMP METAB OLIC PANEL carbon dioxide 22.7 mmol/ L 21.0-3 2.0 Not Available [facility] ([facility]) [address] , [place], [address], 08/10/2024 10:56:34 08/11/19 25 08/10/2024 COMP METAB OLIC PANEL anion gap 17.4 Not Available [facility] ([facility]) [address] , [place], [address], 08/10/2024 10:56:34 08/11/19 25 08/10/2024 COMP METAB OLIC PANEL glucose 180 mg/dL 70-120 high Not Available [facility] ([facility]) [address] , [place], [address], 08/10/2024 10:56:34 08/11/19 25 08/10/2024 COMP METAB OLIC PANEL BUN 13 mg/dL 7-18 Not Available [facility] ([facility]) [address] , [place], [address], 08/10/2024 10:56:34 08/11/19 25 08/10/2024 COMP METAB OLIC PANEL creatinine 1.05 mg/dL 0.6-1. 3 Not Available [facility] ([facility]) [address] , [place], [address], 08/10/2024 10:56:34 08/11/19 25 08/10/2024 COMP METAB OLIC PANEL glomerular filtration rate 55 mlper min 60- low GFR LIMIT ATION : The eGFR equat ion CKD-E PI 2020 is not appli cable for pedia tric patie nts or great er than 90 years of age. The follo wing condi tions may alter the GFR resul t: extre mes in body size, malnu triti on or obesi ty, skele azucena muscl e disea se, parap legia or quadr ipleg ia, veget sukhwinder diet or rapid ly albrecht ing kiney funct ion. Not Available [facility] ([facility]) [address], [place], [address], 08/10/2024 10:56:34 08/11/19 25 08/10/2024 COMP METAB OLIC PANEL total protein 6.9 g/dL 6.4-8. 2 Not Available [facility] ([facility]) [address], [place], [address], 08/10/2024 10:56:34 08/11/19 25 08/10/2024 COMP METAB OLIC PANEL albumin 4.3 g/dL 3.4-5. 0 Not Available [facility] ([facility]) [address], [place], [address], 08/10/2024 10:56:34 08/11/19 25 08/10/2024 COMP METAB OLIC PANEL globulin 2.6 Not Available [facility] ([facility]) [address], [place], [address], 08/10/2024 10:56:34 08/11/19 25 08/10/2024 COMP METAB OLIC PANEL alb/glob ratio 1.7 0.7-2 Not Available [facility] ([facility]) [address], [place], [address], 08/10/2024 10:56:34 08/11/19 25 08/10/2024 COMP METAB OLIC PANEL calcium 8.9 mg/dL 8.5-10 .5 Not Available [facility] ([facility]) [address], [place], [address], 08/10/2024 10:56:34 08/11/19 25 08/10/2024 COMP METAB OLIC PANEL bilirubin total 0.6 mg/dL 0.10-1 .00 Not Available [facility] ([facility]) [address] , [place], [address], 08/10/2024 10:56:34 08/11/19 25 08/10/2024 COMP METAB OLIC PANEL AST (SGOT) 40 U/L 0-37 high Not Available [facility] ([facility]) [address], [place], [address], 08/10/2024 10:56:34 08/11/19 25 08/10/2024 COMP METAB OLIC PANEL ALT (SGPT) 23 U/L 0-65 Not Available [facility] ([facility]) [address], [place], [address], 08/10/2024 10:56:34 08/11/19 25 08/10/2024 COMP METAB OLIC PANEL alk phosphatase 234 U/L 46-116 high Not Available [facility] ([facility]) [address], [place], [address], 08/10/2024 10:56:34 08/11/19 25 08/10/2024 MAGNE SIUM magnesium 2.1 mg/dL 1.8-2. 4 Not Available [facility] ([facility]) [address], [place], [address], 08/10/2024 10:57:38 08/11/19 25 08/10/2024 PT (PROT HROMB IN TIME) W INR prothrombin time 36.2 secon ds 9.3-11 .4 high Not Available [facility] ([facility]) [address], [place], [address], 08/10/2024 10:58:45 08/11/19 25 08/10/2024 PT (PROT HROMB IN TIME) W INR INR 3.7 ratio 0.97-1 .05 high INR is inten ded to be used ONLY for patie nts on stabl e oral antic oagul ant thera py. Thera peuti c Range s: 2.0-3 .0 Usual Thera peuti c Range 2.5-3 .5 For patie nts with histo ry of Multi ple Deep Vein Throm bus or Mecha nical Heart Valve s Not Available [facility] ([facility]) [address] , [place], [address], 08/10/2024 10:58:45 08/26/19 25 08/25/2024 COMP METAB OLIC PANEL sodium 137 mmol/ L 136-14 5 Not Available [facility] ([facility]) [address] , [place], [address], 08/25/2024 09:39:00 08/26/19 25 08/25/2024 COMP METAB OLIC PANEL potassium 4.1 mmol/ L 3.6-5. 0 Not Available [facility] ([facility]) [address] [place], [address], 08/25/2024 09:39:00 08/26/19 25 08/25/2024 COMP METAB OLIC PANEL chloride 101 mmol/ L 98-107 Not Available [facility] ([facility]) [address] [place], [address], 08/25/2024 09:39:00 08/26/19 25 08/25/2024 COMP METAB OLIC PANEL carbon dioxide 23.8 mmol/ L 21.0-3 2.0 Not Available [facility] ([facility]) [address] [place], [address], 08/25/2024 09:39:00 08/26/19 25 08/25/2024 COMP METAB OLIC PANEL anion gap 16.3 Not Available [facility] ([facility]) [address] [place], [address], 08/25/2024 09:39:00 08/26/1908/25/2024 COMP METAB OLIC PANEL glucose 169 mg/dL 70-120 high Not Available [facility] ([facility]) [address] , [place], [address], 08/25/2024 09:39:00 08/26/1908/25/2024 COMP METAB OLIC PANEL BUN 17 mg/dL 7-18 Not Available [facility] ([facility]) [address] , [place], [address], 08/25/2024 09:39:00 08/26/1908/25/2024 COMP METAB OLIC PANEL creatinine 1.5 mg/dL 0.6-1. 3 high Not Available [facility] ([facility]) [address], [place], [address], 08/25/2024 09:39:00 08/26/1908/25/2024 COMP METAB OLIC PANEL glomerular filtration rate 36 mlper min 60- low GFR LIMIT ATION : The eGFR equat ion CKD-E PI 2020 is not appli cable for pedia tric patie nts or great er than 90 years of age. The follo wing condi tions may alter the GFR resul t: extre mes in body size, malnu triti on or obesi ty, skele azucena muscl e disea se, parap legia or quadr ipleg ia, veget sukhwinder diet or rapid ly albrecht ing kiney funct ion. Not Available [facility] ([facility]) [address] , [place], [address], 08/25/2024 09:39:00 08/26/1908/25/2024 COMP METAB OLIC PANEL osmolality (calculated) 291 mOsm/ kg 275-30 1 OSMOL ALITY IS A CALCU LATIO N UTILI ZING THE SERUM /PLAS MA SODIU M, GLUCO SE AND UREA NITRO GEN (BUN) LEVEL S. FOR THE MOST ACCUR ATE RESUL T A MEASU RED SERUM OSMOL ALITY IS SUGGE STED. Not Available [facility] ([facility]) [address], [place], [address], 08/25/2024 09:39:00 08/26/19 25 08/25/2024 COMP METAB OLIC PANEL total protein 7.2 g/dL 6.4-8. 2 Not Available [facility] ([facility]) [address], [place], [address], 08/25/2024 09:39:00 08/26/19 25 08/25/2024 COMP METAB OLIC PANEL albumin 2.9 g/dL 3.4-5. 0 low Not Available [facility] ([facility]) [address], [place], [address], 08/25/2024 09:39:00 08/26/19 25 08/25/2024 COMP METAB OLIC PANEL globulin 4.3 Not Available [facility] ([facility]) [address], [place], [address], 08/25/2024 09:39:00 08/26/19 25 08/25/2024 COMP METAB OLIC PANEL alb/glob ratio 0.7 0.7-2 Not Available [facility] ([facility]) [address], [place], [address], 08/25/2024 09:39:00 08/26/19 25 08/25/2024 COMP METAB OLIC PANEL calcium 8.9 mg/dL 8.5-10 .5 Not Available [facility] ([facility]) [address], [place], [address], 08/25/2024 09:39:00 08/26/19 25 08/25/2024 COMP METAB OLIC PANEL bilirubin total 0.50 mg/dL 0.10-1 .00 Not Available [facility] ([facility]) [address] [facility], [place], [address], 08/25/2024 09:39:00 08/26/19 25 08/25/2024 COMP METAB OLIC PANEL AST (SGOT) 18 U/L 0-37 Not Available [facility] ([facility]) [address], [place], [address], 08/25/2024 09:39:00 08/26/19 25 08/25/2024 COMP METAB OLIC PANEL ALT (SGPT) 16 U/L 0-65 Not Available [facility] ([facility]) [address] , [place], [address], 08/25/2024 09:39:00 08/26/19 25 08/25/2024 COMP METAB OLIC PANEL alk phosphatase 218 U/L 46-116 high Not Available [facility] ([facility]) [address] , [place], [address], 08/25/2024 09:39:00 08/26/19 25 08/25/2024 MAGNE SIUM magnesium 1.8 mg/dL 1.8-2. 4 Not Available [facility] ([facility]) [address] , [place], [address], 08/25/2024 09:39:02 08/26/19 25 08/25/2024 CBC AUTO W DIFF WBC 3.5 K/uL 4.0-10 .5 low Not Available [facility] ([facility]) [address] , [place], [address], 08/25/2024 09:46:31 08/26/19 25 08/25/2024 CBC AUTO W DIFF RBC 3.9 M/mm3 4.2-6. 4 low Not Available [facility] ([facility]) [address] , [place], [address], 08/25/2024 09:46:31 08/26/19 25 08/25/2024 CBC AUTO W DIFF HGB 11.4 gm/dL 12.5-1 6.0 low Not Available [facility] ([facility]) [address], [place], [address], 08/25/2024 09:46:31 08/26/19 25 08/25/2024 CBC AUTO W DIFF HCT 34.6 % 37.0-4 7.0 low Not Available [facility] ([facility]) [address], [place], [address], 08/25/2024 09:46:31 08/26/19 25 08/25/2024 CBC AUTO W DIFF MCV 88.7 fL 78-100 Not Available [facility] ([facility]) [address], [place], [address], 08/25/2024 09:46:31 08/26/19 25 08/25/2024 CBC AUTO W DIFF MCH 29.2 pg 27-31 Not Available [facility] ([facility]) [address], [place], [address], 08/25/2024 09:46:31 08/26/19 25 08/25/2024 CBC AUTO W DIFF MCHC 32.9 g/dL 32-36 Not Available [facility] ([facility]) [address], [place], [address], 08/25/2024 09:46:31 08/26/19 25 08/25/2024 CBC AUTO W DIFF RDW 15.6 % 11.5-1 4.0 high Not Available [facility] ([facility]) [address], [place], [address], 08/25/2024 09:46:31 08/26/19 25 08/25/2024 CBC AUTO W DIFF platelet count 295 K/uL 150-45 0 Not Available [facility] ([facility]) [address], [place], [address], 08/25/2024 09:46:31 08/26/19 25 08/25/2024 CBC AUTO W DIFF MPV 9.0 fL 6-9.5 Not Available [facility] ([facility]) [address], [place], [address], 08/25/2024 09:46:31 08/26/19 25 08/25/2024 CBC AUTO W DIFF neutrophil% 39.6 % 43-65 low Not Available [facility] ([facility]) [address], [place], [address], 08/25/2024 09:46:31 08/26/19 25 08/25/2024 CBC AUTO W DIFF lymphocyte% 41.8 % 20.5-4 5.5 Not Available [facility] ([facility]) [address], [place], [address], 08/25/2024 09:46:31 08/26/19 25 08/25/2024 CBC AUTO W DIFF monocyte% 13.4 % 5.5-11 .7 high Not Available [facility] ([facility]) [address], [place], [address], 08/25/2024 09:46:31 08/26/19 25 08/25/2024 CBC AUTO W DIFF eosinophil% 3.7 % 0.9-2. 9 high Not Available [facility] ([facility]) [address] [place], [address], 08/25/2024 09:46:31 08/26/19 25 08/25/2024 CBC AUTO W DIFF basophil% 0.9 % 0.2-1. 0 Not Available [facility] ([facility]) [address] [place], [address], 08/25/2024 09:46:31 08/26/19 25 08/25/2024 CBC AUTO W DIFF immature granulocytes % 0.6 % 0.0-0. 8 Not Available [facility] ([facility]) [address] [place], [address], 08/25/2024 09:46:31 08/26/19 25 08/25/2024 CBC AUTO W DIFF nucleated red blood cells % 0.0 % Not Available [facility] ([facility]) [address], [place], [address], 08/25/2024 09:46:31 08/26/19 25 08/25/2024 CBC AUTO W DIFF neutrophil# 1.4 K/uL 2.2-4. 8 low Not Available [facility] ([facility]) [address], [place], [address], 08/25/2024 09:46:31 08/26/19 25 08/25/2024 CBC AUTO W DIFF lymphocyte# 1.5 cell/ mcL 1.3-2. 9 Not Available [facility] ([facility]) [address] [facility], [place], [address], 08/25/2024 09:46:31 08/26/19 25 08/25/2024 CBC AUTO W DIFF monocyte# 0.5 cell/ mcL 0.3-0. 8 Not Available [facility] ([facility]) [address], [place], [address], 08/25/2024 09:46:31 08/26/19 25 08/25/2024 CBC AUTO W DIFF eosinophil# 0.1 cell/ mcL 0-0.2 Not Available [facility] ([facility]) [address], [place], [address], 08/25/2024 09:46:31 08/26/19 25 08/25/2024 CBC AUTO W DIFF basophil# 0.0 cell/ mcL 0.0-1. 0 Not Available [facility] ([facility]) [address] [facility], [place], [address], 08/25/2024 09:46:31 08/26/19 25 08/25/2024 CBC AUTO W DIFF immature gramulocytes # 0.02 K/uL Not Available [facility] ([facility]) [address] , [place], [address], 08/25/2024 09:46:31 08/26/19 25 08/25/2024 CBC AUTO W DIFF nucleated red blood cells # 0.00 K/uL Not Available [facility] ([facility]) [address], [place], [address], 08/25/2024 09:46:31 08/26/19 25 08/25/2024 CBC AUTO W DIFF manual differential NO Not Available [facility] ([facility]) [address], [place], [address], 08/25/2024 09:46:31 08/26/19 25 08/25/2024 PT (PROT HROMB IN TIME) W INR prothrombin time 77.1 secon ds 9.3-11 .4 critical high Not Available [facility] ([facility]) [address] , [place], [address], 08/25/2024 10:02:40 08/26/19 25 08/25/2024 PT (PROT HROMB IN TIME) W INR INR 8.03 ratio 0.97-1 .05 high INR is inten ded to be used ONLY for patie nts on stabl e oral antic oagul ant thera py. Thera peuti c Range s: 2.0-3 .0 Usual Thera peuti c Range 2.5-3 .5 For patie nts with histo ry of Multi ple Deep Vein Throm bus or Mecha nical Heart Valve s Not Available [facility] ([facility]) [address] , [place], [address], 08/25/2024 10:02:40 09/03/19 25 09/02/2024 COMP METAB OLIC PANEL sodium 131 mmol/ L 136-14 5 low Not Available [facility] ([facility]) [address], [place], [address], 09/02/2024 14:45:24 09/03/19 25 09/02/2024 COMP METAB OLIC PANEL potassium 4.0 mmol/ L 3.6-5. 0 Not Available [facility] ([facility]) [address] , [place], [address], 09/02/2024 14:45:24 09/03/19 25 09/02/2024 COMP METAB OLIC PANEL chloride 99 mmol/ L 98-107 Not Available [facility] ([facility]) [address] , [place], [address], 09/02/2024 14:45:24 09/03/19 25 09/02/2024 COMP METAB OLIC PANEL carbon dioxide 18.6 mmol/ L 21.0-3 2.0 low Not Available [facility] ([facility]) [address] , [place], [address], 09/02/2024 14:45:24 09/03/19 25 09/02/2024 COMP METAB OLIC PANEL anion gap 17.4 Not Available [facility] ([facility]) [address] , [place], [address], 09/02/2024 14:45:24 09/03/19 25 09/02/2024 COMP METAB OLIC PANEL glucose 145 mg/dL 70-120 high Not Available [facility] ([facility]) [address] , [place], [address], 09/02/2024 14:45:24 09/03/19 25 09/02/2024 COMP METAB OLIC PANEL BUN 36 mg/dL 7-18 high Not Available [facility] ([facility]) [address] , [place], [address], 09/02/2024 14:45:24 09/03/19 25 09/02/2024 COMP METAB OLIC PANEL creatinine 1.5 mg/dL 0.6-1. 3 high Not Available [facility] ([facility]) [address] , [place], [address], 09/02/2024 14:45:24 09/03/19 25 09/02/2024 COMP METAB OLIC PANEL glomerular filtration rate 36 mlper min 60- low GFR LIMIT ATION : The eGFR equat ion CKD-E PI 2020 is not appli cable for pedia tric patie nts or great er than 90 years of age. The follo wing condi tions may alter the GFR resul t: extre mes in body size, malnu triti on or obesi ty, skele azucena muscl e disea se, parap legia or quadr ipleg ia, veget sukhwinder diet or rapid ly albrecht ing kiney funct ion. Not Available [facility] ([facility]) [address] , [place], [address], 09/02/2024 14:45:24 09/03/19 25 09/02/2024 COMP METAB OLIC PANEL osmolality (calculated) 284 mOsm/ kg 275-30 1 OSMOL ALITY IS A CALCU LATIO N UTILI ZING THE SERUM /PLAS MA SODIU M, GLUCO SE AND UREA NITRO GEN (BUN) LEVEL S. FOR THE MOST ACCUR ATE RESUL T A MEASU RED SERUM OSMOL ALITY IS SUGGE STED. Not Available [facility] ([facility]) [address] , [place], [address], 09/02/2024 14:45:24 09/03/19 25 09/02/2024 COMP METAB OLIC PANEL total protein 5.9 g/dL 6.4-8. 2 low Not Available [facility] ([facility]) [address] , [place], [address], 09/02/2024 14:45:24 09/03/19 25 09/02/2024 COMP METAB OLIC PANEL albumin 2.1 g/dL 3.4-5. 0 low Not Available [facility] ([facility]) [address], [place], [address], 09/02/2024 14:45:24 09/03/19 25 09/02/2024 COMP METAB OLIC PANEL globulin 3.8 Not Available [facility] ([facility]) [address], [place], [address], 09/02/2024 14:45:24 09/03/19 25 09/02/2024 COMP METAB OLIC PANEL alb/glob ratio 0.6 0.7-2 low Not Available [facility] ([facility]) [address] , [place], [address], 09/02/2024 14:45:24 09/03/19 25 09/02/2024 COMP METAB OLIC PANEL calcium 8.1 mg/dL 8.5-10 .5 low Not Available [facility] ([facility]) [address] , [place], [address], 09/02/2024 14:45:24 09/03/19 25 09/02/2024 COMP METAB OLIC PANEL bilirubin total 1.10 mg/dL 0.10-1 .00 high Not Available [facility] ([facility]) [address] , [place], [address], 09/02/2024 14:45:24 09/03/19 25 09/02/2024 COMP METAB OLIC PANEL AST (SGOT) 13 U/L 0-37 Not Available [facility] ([facility]) [address] , [place], [address], 09/02/2024 14:45:24 09/03/19 25 09/02/2024 COMP METAB OLIC PANEL ALT (SGPT) 13 U/L 0-65 Not Available [facility] ([facility]) [address], [place], [address], 09/02/2024 14:45:24 09/03/19 25 09/02/2024 COMP METAB OLIC PANEL alk phosphatase 188 U/L 46-116 high Not Available [facility] ([facility]) [address], [place], [address], 09/02/2024 14:45:24 09/03/19 25 09/02/2024 CBC AUTO W DIFF WBC 1.2 K/uL 4.0-10 .5 critical low Not Available [facility] ([facility]) [address] , [place], [address], 09/02/2024 16:09:44 09/03/19 25 09/02/2024 CBC AUTO W DIFF RBC 3.4 M/mm3 4.2-6. 4 low Not Available [facility] ([facility]) [address] , [place], [address], 09/02/2024 16:09:44 09/03/19 25 09/02/2024 CBC AUTO W DIFF HGB 9.6 gm/dL 12.5-1 6.0 low Not Available [facility] ([facility]) [address] , [place], [address], 09/02/2024 16:09:44 09/03/19 25 09/02/2024 CBC AUTO W DIFF HCT 28.7 % 37.0-4 7.0 low Not Available [facility] ([facility]) [address] , [place], [address], 09/02/2024 16:09:44 09/03/19 25 09/02/2024 CBC AUTO W DIFF MCV 85.4 fL 78-100 Not Available [facility] ([facility]) [address] , [place], [address], 09/02/2024 16:09:44 09/03/19 25 09/02/2024 CBC AUTO W DIFF MCH 28.6 pg 27-31 Not Available [facility] ([facility]) [address] , [place], [address], 09/02/2024 16:09:44 09/03/19 25 09/02/2024 CBC AUTO W DIFF MCHC 33.4 g/dL 32-36 Not Available [facility] ([facility]) [address] , [place], [address], 09/02/2024 16:09:44 09/03/19 25 09/02/2024 CBC AUTO W DIFF RDW 15.9 % 11.5-1 4.0 high Not Available [facility] ([facility]) [address] , [place], [address], 09/02/2024 16:09:44 09/03/19 25 09/02/2024 CBC AUTO W DIFF platelet count 213 K/uL 150-45 0 Not Available [facility] ([facility]) [address] , [place], [address], 09/02/2024 16:09:44 09/03/19 25 09/02/2024 CBC AUTO W DIFF MPV 9.6 fL 6-9.5 high Not Available [facility] ([facility]) [address] , [place], [address], 09/02/2024 16:09:44 09/03/19 25 09/02/2024 CBC AUTO W DIFF neutrophil% 57.7 % 43-65 Not Available [facility] ([facility]) [address] [place], [address], 09/02/2024 16:09:44 09/03/19 25 09/02/2024 CBC AUTO W DIFF lymphocyte% 25.4 % 20.5-4 5.5 Not Available [facility] ([facility]) [address] [place], [address], 09/02/2024 16:09:44 09/03/19 25 09/02/2024 CBC AUTO W DIFF monocyte% 15.3 % 5.5-11 .7 high Not Available [facility] ([facility]) [address] , [place], [address], 09/02/2024 16:09:44 09/03/19 25 09/02/2024 CBC AUTO W DIFF eosinophil% 0.0 % 0.9-2. 9 low Not Available [facility] ([facility]) [address], [place], [address], 09/02/2024 16:09:44 09/03/19 25 09/02/2024 CBC AUTO W DIFF basophil% 0.8 % 0.2-1. 0 Not Available [facility] ([facility]) [address], [place], [address], 09/02/2024 16:09:44 09/03/19 25 09/02/2024 CBC AUTO W DIFF immature granulocytes % 0.8 % 0.0-0. 8 Not Available [facility] ([facility]) [address], [place], [address], 09/02/2024 16:09:44 09/03/19 25 09/02/2024 CBC AUTO W DIFF nucleated red blood cells % 0.0 % Not Available [facility] ([facility]) [address], [place], [address], 09/02/2024 16:09:44 09/03/19 25 09/02/2024 CBC AUTO W DIFF neutrophil# 0.7 K/uL 2.2-4. 8 low Not Available [facility] ([facility]) [address], [place], [address], 09/02/2024 16:09:44 09/03/19 25 09/02/2024 CBC AUTO W DIFF lymphocyte# 0.3 cell/ mcL 1.3-2. 9 low Not Available [facility] ([facility]) [address], [place], [address], 09/02/2024 16:09:44 09/03/19 25 09/02/2024 CBC AUTO W DIFF monocyte# 0.2 cell/ mcL 0.3-0. 8 low Not Available [facility] ([facility]) [address] , [place], [address], 09/02/2024 16:09:44 09/03/19 25 09/02/2024 CBC AUTO W DIFF eosinophil# 0.0 cell/ mcL 0-0.2 Not Available [facility] ([facility]) [address] , [place], [address], 09/02/2024 16:09:44 09/03/19 25 09/02/2024 CBC AUTO W DIFF basophil# 0.0 cell/ mcL 0.0-1. 0 Not Available [facility] ([facility]) [address] , [place], [address], 09/02/2024 16:09:44 09/03/19 25 09/02/2024 CBC AUTO W DIFF immature gramulocytes # 0.01 K/uL Not Available [facility] ([facility]) [address], [place], [address], 09/02/2024 16:09:44 09/03/19 25 09/02/2024 CBC AUTO W DIFF nucleated red blood cells # 0.00 K/uL Not Available [facility] ([facility]) [address], [place], [address], 09/02/2024 16:09:44 09/03/19 25 09/02/2024 CBC AUTO W DIFF manual differential YES Not Available [facility] ([facility]) [address] , [place], [address], 09/02/2024 16:09:44 09/03/19 25 09/02/2024 CBC AUTO W DIFF segmented neutrophil 54 % 42-76 Not Available [facility] ([facility]) [address] , [place], [address], 09/02/2024 16:09:44 09/03/19 25 09/02/2024 CBC AUTO W DIFF band neutrophil 8 % 0-8 Not Available [facility] ([facility]) [address] , [place], [address], 09/02/2024 16:09:44 09/03/19 25 09/02/2024 CBC AUTO W DIFF lymphocyte 16 % 15-41 Not Available [facility] ([facility]) [address], [place], [address], 09/02/2024 16:09:44 09/03/19 25 09/02/2024 CBC AUTO W DIFF monocyte 20 % 2-9 high Not Available [facility] ([facility]) [address] , [place], [address], 09/02/2024 16:09:44 09/03/19 25 09/02/2024 CBC AUTO W DIFF eosinophil 2 % 0-3 Not Available [facility] ([facility]) [address] , [place], [address], 09/02/2024 16:09:44 09/03/19 25 09/02/2024 CBC AUTO W DIFF platelet estimate ADEQUA TE adequa te Not Available [facility] ([facility]) [address] , [place], [address], 09/02/2024 16:09:44 09/03/19 25 09/02/2024 CBC AUTO W DIFF platelet morphology NORMAL normal Not Available [facility] ([facility]) [address] , [place], [address], 09/02/2024 16:09:44 09/03/19 25 09/02/2024 CBC AUTO W DIFF RBC morphology NORMAL normal Not Available [facility] ([facility]) [address], [place], [address], 09/02/2024 16:09:44 07/28/19 25 07/28/2024 CT ABD pel w/ (IV [facility] [address] [place] [address] Phone: Fax: Name: VICKY MCMAHAN Exam Date: : [birth year] Age 78 years Gender : F Access ion: [id number] 2023 Physic jesus: HANNA PARKER ty: [facility] Facilcamelia ty HSV: Outpat ient Exam: CT ABD PEL W/ (IV ^ ORAL) CT ABDOME N PELVIS WITH IV CONTRA ST 2:46 PM [facility] INDICA TION: Female , 78 [...] gs compar e Februa ry 2023, 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 Legall y authen ticate d by VAMSHI HALL 0 07-28 15:46: 13 CC'ed Logic: Orderi ng Provid er: DIGNA LUGO Attend ing Provid er: DIGNA LUGO Referr ing Provid er: DIGNA LUGO Admitt ing Provid er: DIGNA taylor[address] [place] [address] - Physical Therapy [address] [place] [address], [place], [address], 07/29/2024 11:36:27 08/02/19 25 07/28/2024 CT, chest , w/ contr ast [facility] [address] [place] [address] Phone: Fax: Name: VICKY MCMAHAN Exam Date: 025 : [birth year] Age 78 years Gender : F Access ion: [id number] 2023 Physic jesus: SIENNABELINDA Aguilar HANNA Facili ty: [facility] Facili ty HSV: Outpat ient Exam: CT [...] Annie Villavicencio in Thank you for referr [facility] Legall y authen ticate d by AVIS ALBA IN 07-28 15:46: 34 CC'ed Logic: Orderi ng Provid er: DIGNA LUGO Attend ing Provid er: DIGNA LUGO Referr ing Provid er: DIGNA LUGO Admitt ing Provid er: DIGNA LUGO [email or web address] [facility] - [facility] Therapy [address], [place], [address], 08/01/2024 10:49:34 Result Notes None recorded. Problems Name Problem SNOMED Code Status Onset Date Resolution Date Notes Provider Name and Address Organization Details Recorded Time Headache 14835715 Active 2024 Christine yusuf, [place] [facility] [place] [facility] [place] 5 10:27:12 Metastatic malignant neoplasm to liver 18867469 Active 2022 Ghassan Lieberman PA-C [address] , [place], [address] , [place] [facility] [place] [facility] [place] 3 14:27:25 Mass of colon 752843496 Active 2022 Ghassan Lieberman PA-C [address], [place], [address] , [place] [facility] [place] 3 14:27:30 Anemia 034545628 Active 2022 Ghassan Lieberman PA-C [address], [place], [address] , [place] [facility] & [place] 3 14:27:36 Nausea and vomiting 56158080 Active 2022 Ghassan Lieberman PA-C [address], [place], [address] , [place] [facility] & [place] 3 14:27:46 Unintentional weight loss 541886105 Active 2022 Ghassan Lieberman PA-C [address], [place], [address] , [facility] - [facility] & [place] 3 16:13:07 Night sweats 60987870 Active 2022 Ghassan Lieberman PA-C [address], [place], [address] , [facility] - [facility] & [place] 3 16:13:12 Problem Notes None recorded. Procedures Surgical History Date Name Laterality Status Provider Name and Address Organization Details Recorded Time 04/29/20 23 Venipuncture completed Hanna Snider PA-C [address] , [place], [address], [facility] - [facility] & [place] 04/27/2023 15:05:29 04/15/20 23 Venipuncture completed Stephanie Maravilla [facility] & [place] 04/15/2023 15:24:55 hysterectomy completed Laurel Samuels [facility] & [place] 03/11/2023 15:30:22 extraction of cataract completed Laurelesvin Hydecaio [place] - [facility] & [place] 03/11/2023 15:30:36 excision of colon completed Loree Tadeo [facility] & [place] 04/21/2023 11:32:07 Imaging Results Imaging Date Name Status LastModified by Jose Francisco dawn Details LastModified Time 07/28/2024 CT ABD pel w/ (IV completed [id number] [place] [address] - Physical Therapy [address], [place], [address], 07/29/2024 11:36:27 07/28/2024 CT, chest, w/ contrast completed [email or web address] [place] [address] [address], [place], [address], 08/01/2024 10:49:34 Procedure Notes None recorded. Medical Equipment None Reported. Allergies Allergen ID Allergen Name Allergen Category Reaction Reaction Severity Criticality Documentation Date Start Date Code Code System Note Provider Name and Address Organization Details Recorded Time 80793 tetracycl ine medicatio n hives Not available high 02/19/2023 27609 RxNorm Brandy Maciel [facility], [place] - NT [facility] & [place] 3 14:03:33 Medications Name Sig Start Date [...] Updated DateTime 5 162.56 cm 36 kg/m2 73234.4 g 98 [degF] 97 % 97 % 98 /min 132 mm[Hg] 72 mm[Hg] Akilah Fuentes CURT [facility] & [place] 5 10:42:43 Date Recorded Body height Body mass index (BMI) Body weight Body temperature Heart rate Oxygen saturation Oxygen saturation in Arterial blood by Pulse oximetry Systolic blood pressure Diastolic blood pressure Provider Name and Address Organization Details Last Updated DateTime 5 162.56 cm 35.2 kg/m2 92947.4 4 g 97.7 [degF] 60 /min 99 % 99 % 159 mm[Hg] 61 mm[Hg] Laurel ELIAS [facility] & [place] 5 12:08:08 Date Recorded Body height Body mass index (BMI) Body weight Body temperature Oxygen saturation Oxygen saturation in Arterial blood by Pulse oximetry Heart rate Respiratory rate Systolic blood pressure Diastolic blood pressure Provider Name and Address Organization Details Last Updated DateTime 5 162.56 cm 36 kg/m2 97416.4 g 97 [degF] 90 % 90 % 57 /min 18 /min 143 mm[Hg] 68 mm[Hg] Laurel ELIAS [facility] & [place] 5 10:00:38 Date Recorded Body height Body mass index (BMI) Body weight Body temperature Oxygen saturation Oxygen saturation in Arterial blood by Pulse oximetry Heart rate Respiratory rate Systolic blood pressure Diastolic blood pressure Provider Name and Address Organization Details Last Updated DateTime 5 162.56 cm 35.2 kg/m2 76569.4 4 g 97.5 [degF] 98 % 98 % 20 /min 83 /min 140 mm[Hg] 68 mm[Hg] Laurel Lai [place] & [place] 5 09:42:28 Date Recorded Body height Body temperature Oxygen saturation Oxygen saturation in Arterial blood by Pulse oximetry Heart rate Respiratory rate Systolic blood pressure Diastolic blood pressure Provider Name and Address Organization Details Last Updated DateTime 5 162.56 cm 97.2 [degF] 95 % 95 % 141 /min 20 /min 137 mm[Hg] 86 mm[Hg] Laurel GIBBS [facility] & [place] 5 12:09:03 Social History Question Answer Notes LastModified by Organizat ion Details LastModified Time Tobacco Smoking Status Never Smoker CURT Johnston [facility] & [place] 02/19/2023 14:02:59 What Is Your Level Of Alcohol Consumption? None [email or web address] Information not available 02/19/2023 What Is Your Level Of Caffeine Consumption? None [email or web address] Information not available 02/19/2023 What Was The Date Of Your Most Recent Tobacco Screening? 11/23/2023 [email or web address] Information not available 11/23/2023 Do You Use Any Illicit Or Recreational Drugs? No [email or web address] Information not available 02/19/2023 Has Tobacco Cessation Counseling Been Provided? No [email or web address] Information not available 07/13/2023 Do You Or Have You Ever Used Any Other Forms Of Tobacco Or Nicotine? No [email or web address] Information not available 02/19/2023 Sex: Unknown Functional Status None recorded. Mental Status None recorded. Family History Nothing Reported. Medical History No medical history recorded. Gynecological HistoryNo gynecological history recorded. Obstetrics History GPAL:G 0 P 0 0 0 0 Immunizations Vaccine Type Date Status Note Provider Nam e and Address Organization Details Recorded Time pneumococcal polysaccharide PPV23 7 completed Stephanie GastonCURT goel [facility] & [place] 12/21/2023 09:56:34 Past Encounters Encounter ID Performer Location Encounter Start Date Encounter Closed Date Diagnosis/Indication Diagnosis SNOMED-CT Code Diagnosis ICD10 Code Diagnosis Note [id number] Ghassan Lieberman PA-C [facility] [address] [place] [address] 02/19/2023 13:50:39 02/19/2023 14:35:58 Metastatic malignant neoplasm to liver 88436359 C78.7 Mass of colon 118554151 R19.09 Anemia 470350530 D64.9 Nausea and vomiting 1693 2000 R11.2 Unintentio nal weight loss 158682746 R63.4 Night sweats 47588641 R6 1 [id number] Addy Gonzales MD [facility] General Surgery [address] [facility] [place] [address] 03/10/2023 13:05:53 03/10/2023 14:02:07 Mass of colon 306634852 R19.09 Ascending colon. Patient has had ongoing bleeding and some degree of obstructio n. This is presumed to be colon cancer, possibly metastatic due to the numerous liver masses. We did discuss laparoscop ic/robotic or possible open colectomy due to the ongoing symptoms. Given the chance of metastasis , have recommende d that she see Oncology as scheduled tomorrow. Suspect that metastatic workup, possibly including PET scan or liver biopsy may be required. Patient may require palliative resection regardless due to bleeding and risk of obstructio n. We did discuss risks of the procedure including bleeding, infection, damage to surroundin g structures and possibilit y of ostomy. Liver mass 568331465 R16 .0 [id number] [facility]ematolog [facility] [address] [facility] [address] [place] [address] 03/11/2023 14:55:42 03/11/2023 16:34:54 Malignant tumor of ascending colon 470281524 C18.2 CT scan of the abdomen and [...] No evidence of mass or abnormalit y. Colonoscop y performed on March 03, 2023 with mass seen in the ascending colon. Infiltrati ng mass seen circumfere ntially in the ascending colon. Mass causing partial bowel obstructio n. Colonoscop e could not traverse lesion and exam could not be finished. Biopsies taken from colonoscop y on March 03, 2023 with findings tubulovill ous adenoma as well as tubular adenoma. No evidence of high-grade dysplasia. Tissue sampling at time of colonoscop y without evidence of invasive carcinoma. Patient presents for evaluation on March 11, 2023. Discussed with patient concern for metastatic colon cancer. Discussed labs today for evaluation . Discussed molecular profiling with Temcasperus to assess for circulatin g tumor DNA on blood sample. Will also perform additional testing on tumor sample was obtained. Discussed with patient biopsy of liver lesion for tissue diagnosis. Concern patient has metastatic colon cancer and would be stage IV. Will follow-up tissue sampling. Metastatic malignant neoplasm to liver 30345633 C78.7 CT scan of the abdomen and [...] mass. Findings concerning for metastatic colon cancer. Will follow-up tissue biopsy. Nausea 413558337 R11.0 As needed Zofran and Phenergan prescribed . Pain due t o neoplastic disease 2723568573 9102 G89.3 Right upper quadrant pain secondary to liver metastasis . Patient currently taking Tylenol. Discussed as needed oxycodone to limit Tylenol exposure. Anemia 083652866 D64.9 Right-side d colon mass concerning for malignancy . Will assess for any signs of iron deficiency . Most recent hemoglobin at 8.0. Concern for blood loss from colon mass. Patient reports dark stools. Adopted 262604793 Z62.89 8 Patient is adopted and discussed hereditary gene panel. Patient does have family history of her son having bladder cancer. [id number] Tomy King MD [facility] Oncology and Hematolog y [address] [place] [address] 04/15/2023 14:08:30 04/15/2023 15:42:28 Malignant tumor of ascending colon 963149643 C18.2 CT scan of the abdomen and [...] 8.2 hematocrit 29.0. MCV 67.9. Platelet count 260574. Normal cell differenti al. 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 Patient yarely mcgovern with metastatic colorectal cancer. Discussed chemothera py with [place] based regimen with 5FU Leucovorin if KRAS wild type would also add Vectibix to therapy. Will follow-up. Patient returns on April 15, 2023. Will start chemothera py as soon as possible. Metastatic malignant neoplasm to liver 11568765 C78.7 CT scan of the abdomen and [...] Findings concerning for metastatic colon cancer. Nausea 514487206 R11.0 As needed Zofran and Phenergan prescribed . Pain due t o neoplastic disease 2600387143 9102 G89.3 Right upper quadrant pain secondary to liver metastasis . Patient currently taking Tylenol. Discussed as needed oxycodone to limit Tylenol exposure. Anemia 144216126 D64.9 Right-side d colon mass concerning for malignancy . Will assess for any signs of iron deficiency . Most recent hemoglobin at 8.0. Concern for blood loss from colon mass. Patient reports dark stools. Adopted 246915089 Z62.89 8 Patient is adopted and discussed hereditary gene panel. Patient does have family history of her son having bladder cancer. Will send [facility] hereditary panel. [id number] Addy Gonzales MD [facility] General Surgery [address] [facility] [place] [address] 04/21/2023 11:07:18 04/21/2023 11:47:40 Malignant tumor of ascending colon 817142960 C18.2 Patient has follow-up with Oncology, is debating if she wishes any further treatment at this point. I have recommende d continuing lifting restrictio ns for another 2 weeks, then can resume activity as tolerated. Patient can follow-up with me if she has ongoing issues or questions. [id number] Hanna Snider PA-C [facility] Oncology and Hematolog [facility] [address] [place] [address] 04/29/2023 10:08:09 04/29/2023 10:08:41 Malignant tumor of ascending colon 515281952 C18.2 CT scan of the abdomen and [...] 8.2 hematocrit 29.0. MCV 67.9. Platelet count 508921. Normal cell differenti al. 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 Patient yarely mcgovern with metastatic colorectal cancer. Discussed chemothera py with [place] based regimen with 5FU Leucovorin if KRAS wild type would also add Vectibix to therapy. Will follow-up. Patient returns on April 29, 2023. Will start cycle 1 5FU Leucovorin Vectibix on April 29, 2023. Chemothera py education performed before treatment started. Magnesium level is 1.7 today. Will give 1 g magnesium IV. Potassium is low at 2.9. Will send prescripti on for potassium 20 mEq daily. Will follow-up labs again next week. Patient has had nausea and decreased appetite. She can not tolerate her nutritiona l drinks. She does take Phenergan with relief. She continues to lose weight. Will send prescripti on for Megace. Will follow-up for angela portillo. Metastatic malignant neoplasm to liver 00777937 C78.7 CT scan of the abdomen and [...] Findings concerning for metastatic colon cancer. Nausea 149502925 R11.0 As needed Zofran and Phenergan prescribed . Pain due t o neoplastic disease 6476099147 9102 G89.3 Right upper quadrant pain secondary to liver metastasis . Patient currently taking Tylenol. Discussed as needed oxycodone to limit Tylenol exposure. Anemia 876005290 D64.9 Right-side d colon mass concerning for malignancy . Will assess for any signs of iron deficiency . Most recent hemoglobin at 8.0. Concern for blood loss from colon mass. Patient reports dark stools. Adopted 208978290 Z62.89 8 Patient is adopted and discussed hereditary gene panel. Patient does have family history of her son having bladder cancer. Will send [facility] hereditary panel. Antineopla stic chemotherapy regimen 895954464 Z51.11 Cycle 1 5FU Leucovorin Vectibix on April 29, 2023. Hypomagnesemia 437612897 E83.42 Patient returns on April 29, 2023. Magnesium level is 1.7 today. Will give 1 g magnesium IV. Hypokalemia 07119469 E87 .6 Patient returns on April 29, 2023. Potassium is low at 2.9. Will send prescripti on for potassium 20 mEq daily. Will follow-up labs again next week. Loss of appetite 6779499 6 R63.0 Patient has had nausea and decreased appetite since her cancer diagnosis. She can not tolerate her nutritiona l drinks. She does take Phenergan with relief. She continues to lose weight. Will send prescripti on for Megace. [id number] Hanna Snider PA-C [facility] Oncology and Hematolog y [address] [facility] [address] [place] [address] 05/04/2023 09:35:22 05/04/2023 09:45:11 Malignant tumor of ascending colon 289049174 C18.2 CT scan of the abdomen and [...] 8.2 hematocrit 29.0. MCV 67.9. Platelet count 693481. Normal cell differenti al. 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 Patient unfortunalindsey mcgovern with metastatic colorectal cancer. Discussed chemothera py with [place] based regimen with 5FU Leucovorin if KRAS wild type would also add Vectibix to therapy. Will follow-up. Patient returns on May 04, 2023. She will receive cycle 2 5FU Leucovorin Vectibix today. She tolerated her 1st cycle without trouble. Patient has had nausea and decreased appetite since her cancer diagnosis. Discussed drinking nutritiona l drinks. She does take Phenergan with relief. She continues to lose weight. She has started on Megace. Will follow-up for [facility] t. Metastatic malignant neoplasm to liver 73138772 C78.7 CT scan of the abdomen and [...] Findings concerning for metastatic colon cancer. Nausea 631081388 R11.0 As needed Zofran and Phenergan prescribed . Pain due t o neoplastic disease 6131701156 9102 G89.3 Right upper quadrant pain secondary to liver metastasis . Patient currently taking Tylenol. Discussed as needed oxycodone to limit Tylenol exposure. Anemia 207265266 D64.9 Right-side d colon mass concerning for malignancy . Will assess for any signs of iron deficiency . Most recent hemoglobin at 8.0. Concern for blood loss from colon mass. Patient reports dark stools. Adopted 926244933 Z62.89 8 Patient is adopted and discussed hereditary gene panel. Patient does have family history of her son having bladder cancer. Will send [facility] hereditary panel. Antineopla stic chemotherapy regimen 121984264 Z51.11 Cycle 1 5FU Leucovorin Vectibix on April 29, 2023. Cycle 2 5FU Leucovorin Vectibix on May 04, 2023. Hypomagnesemia 552408059 E83.42 Patient returns on April 29, 2023. Magnesium level is 1.7 today. Will give 1 g magnesium IV. Hypokalemia 14169756 E87 .6 Patient returns on April 29, 2023. Potassium is low at 2.9. Will send prescripti on for potassium 20 mEq daily. Will follow-up labs again next week. Loss of appetite 6358605 6 R63.0 Patient has had nausea and decreased appetite since her cancer diagnosis. She can not tolerate her nutritiona l drinks. She does take Phenergan with relief. She continues to lose weight. Will send prescripti on for Megace. [id number] Hanna Snider PA-C [facility] Oncology and Hematolog [facility] [address] [place] [address] 05/11/2023 09:04:44 05/11/2023 13:02:16 Malignant tumor of ascending colon 482254837 C18.2 CT scan of the abdomen and [...] 8.2 hematocrit 29.0. MCV 67.9. Platelet count 617691. Normal cell differenti al. 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 Patient yarely mcgovern with metastatic colorectal cancer. Discussed chemothera py with [place] based regimen with 5FU Leucovorin if KRAS wild type would also add Vectibix to therapy. Will follow-up. Patient returns on May 11, 2023. She will receive cycle 3 5FU Leucovorin Vectibix today. She has had diarrhea since night. She has tried Imodium and Pepto. Discussed taking Lomotil instead. Patient has had nausea and decreased appetite since her cancer diagnosis. She continues to lose weight. Discussed drinking nutritiona l drinks. Discussed taking Zofran. She has started on Megace. She has had erythema, conjuntiva inflammati on, discharged and matted left eye. She has been using warm compresses . Will send prescripti on for eye drops for conjunctiv itis. Patient has abominal pain that radiates to her back since her colon cancer diagnosis. She has tried Tylenol without relief. She Had some oxycodone 5 mg left over from her surgery and she has been taking this with relief. She does need a new prescripti on. Will follow-up for angela portillo. Metastatic malignant neoplasm to liver 60989522 C78.7 CT scan of the abdomen and [...] Findings concerning for metastatic colon cancer. Nausea 511096099 R11.0 As needed Zofran and Phenergan prescribed . Pain due t o neoplastic disease 3177346758 9102 G89.3 Right upper quadrant pain secondary to liver metastasis . Patient currently taking Tylenol. Discussed as needed oxycodone to limit Tylenol exposure. Anemia 582504358 D64.9 Right-side d colon mass concerning for malignancy . Will assess for any signs of iron deficiency . Most recent hemoglobin at 8.0. Concern for blood loss from colon mass. Patient reports dark stools. Adopted 875158407 Z62.89 8 Patient is adopted and discussed hereditary gene panel. Patient does have family history of her son having bladder cancer. Will send [facility] hereditary panel. Antineopla stic chemotherapy regimen 031861605 Z51.11 Cycle 1 5FU Leucovorin Vectibix on April 29, 2023. Cycle 2 5FU Leucovorin Vectibix on May 04, 2023. Cycle 3 5FU Leucovorin Vectibix on May 11, 2023. Hypomagnesemia 077598928 E83.42 Patient returns on April 29, 2023. Magnesium level is 1.7 today. Will give 1 g magnesium IV. Hypokalemia 56289250 E87 .6 Patient returns on April 29, 2023. Potassium is low at 2.9. Will send prescripti on for potassium 20 mEq daily. Will follow-up labs again next week. Loss of appetite 3131213 6 R63.0 Patient has had nausea and decreased appetite since her cancer diagnosis. She can not tolerate her nutritiona l drinks. She does take Phenergan with relief. She continues to lose weight. Will send prescripti on for Megace. Acute conjunctivitis 620 65107 H10.32 Patient returns on May 11, 2023. She has had erythema, conjuntiva inflammati on, discharged and matted left eye. She has been using warm compresses . Will send prescripti on for eye drops for conjunctiv itis. Diarrhea 08863818 R19.7 She has had diarrhea since night. She has tried Imodium and Pepto. Discussed taking Lomotil instead. [id number] Addy Gonzales MD [facility] General Surgery [facility] [facility] [place] [address] 05/07/2023 13:50:57 05/07/2023 15:14:30 Malignant tumor of ascending colon 320401835 C18.2 I have scheduled the patient for venous port placement. informed consent was obtained. Risks of the procedure including bleeding, infection, catheter complicati ons and damage to surroundin g structures were discussed [id number] Hanna Snider PA-C [facility] Oncology and Hematolog [facility] [address] [place] [address] 06/02/2023 09:27:10 06/02/2023 10:20:16 Malignant tumor of ascending colon 350275544 C18.2 CT scan of the abdomen and [...] 8.2 hematocrit 29.0. MCV 67.9. Platelet count 005276. Normal cell differenti al. 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 Patient unfortunat froilan with metastatic colorectal cancer. Discussed chemothera py with [place] based regimen with 5FU Leucovorin if [...] a PE in 1990 after her hysterecto my. Will order hypercoagu lable panel today. Patient returns on June 02, 2023. Patient has been treated for C diff and she no longer has diarrhea. She has had increased anxiety. Discussed low-dose Ativan. Patient was scheduled for port placement but this was postponed since patient was dehydrated and she had severe diarrhea due to C diff. This has not been reschedule d. She will follow-up with surgery to reschedule . Patient is feeling weak and is requesting a lift chair. Will see if insurance will cover. Discussed home health but patient declines at this time. She will receive cycle 3 5FU Leucovorin Vectibix next week. Appetite has improved. She has had conjuntiva inflammati on and discharge. She has been using warm compresses . She has also been using prescripti on eye drops with angela t. Discussed likely secondary to chemothera py and following up with optometris t. Will follow up labs today. Metastatic malignant neoplasm to liver 75789731 C78.7 CT scan of the abdomen and [...] Findings concerning for metastatic colon cancer. Nausea 549044062 R11.0 As needed Zofran and Phenergan prescribed . Pain due t o neoplastic disease 0129071068 9102 G89.3 Right upper quadrant pain secondary to liver metastasis . Patient currently taking Tylenol. Discussed as needed oxycodone to limit Tylenol exposure. Anemia 374093188 D64.9 Right-side d colon mass concerning for malignancy . Will assess for any signs of iron deficiency . Most recent hemoglobin at 8.0. Concern for blood loss from colon mass. Patient reports dark stools. Adopted 573048851 Z62.89 8 Patient is adopted and discussed hereditary gene panel. Patient does have family history of her son having bladder cancer. Will send [facility] hereditary panel. Antineopla stic chemotherapy regimen 637045746 Z51.11 Cycle 1 5FU Leucovorin Vectibix on April 29, 2023. Cycle 2 5FU Leucovorin Vectibix on May 04, 2023. Cycle 3 5FU Leucovorin Vectibix on May 11, 2023. Hypomagnesemia 684200656 E83.42 Patient returns on April 29, 2023. Magnesium level is 1.7 today. Will give 1 g magnesium IV. Hypokalemia 68877528 E87 .6 Patient returns on April 29, 2023. Potassium is low at 2.9. Will send prescripti on for potassium 20 mEq daily. Will follow-up labs again next week. Loss of appetite 3303355 6 R63.0 Patient has had nausea and decreased appetite since her cancer diagnosis. She can not tolerate her nutritiona l drinks. She does take Phenergan with relief. She continues to lose weight. Will send prescripti on for Megace. Acute conjunctivitis 537 53246 H10.32 Patient returns on May 11, 2023. She has had erythema, conjuntiva inflammati on, discharged and matted left eye. She has been using warm compresses . Will send prescripti on for eye drops for conjunctiv itis. Diarrhea 61362561 R19.7 Diarrhea has resolved. Patient with recent C diff Deep venou s thrombosis 979250412 I82.409 Patient developed right lower extremity pain and edema. Venous duplex on May 28, 2023 with evidence of deep vein thrombosis . Started on Eliquis 5 mg 1 tab p.o. b.i.d.. Did not start with Eliquis starter pack due to recent bleeding. Patient had a DVT and a PE in 1990 after her hysterecto my. Will order hypercoagu lable panel today. Anxiety 92361879 F41.9 Patient has had increased anxiety. She is tearful and crying during her visit today due to all of her health problems. She does not want to take an antidepres melina at this time. Discussed low-dose Ativan. Muscle weakness 65263098 M62.81 Patient is feeling weak and is requesting a lift chair. Will see if insurance will cover. Discussed home health but patient declines at this time. [id number] Tomy King MD [facility] Oncology and Hematolog y [address] [place] [address] 06/08/2023 09:23:07 06/08/2023 11:39:14 Malignant tumor of ascending colon 868899945 C18.2 CT scan of the abdomen and [...] 8.2 hematocrit 29.0. MCV 67.9. Platelet count 736370. Normal cell differenti al. 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 Labs on June 02, 2023 with CEA at 21.9. Hemoglobin at 10.3 with normal iron studies. Previous CT scan on May 18, 2023 with 5.3 cm lesion in the liver right lobe. Decrease in size from previous imaging prior to starting chemothera py. Patient had venous duplex of the right lower extremity on May 28, 2023. Patient had deep venous thrombosis of the superficia l femoral, popliteal vein, and posterior tibial veins as well as peroneal veins consistent with deep venous thrombosis . Patient was started on Eliquis. Patient seen on June 05, 2023 by General surgery for Port-A-Cat h placement. Patient recently started on Eliquis due to right lower extremity deep venous thrombosis . Considerat ion for holding on Port-A-Cat h placement for a few weeks to allow patient to be off anticoagul ation for Port-A-Cat h placement. Patient returns on June 08, 2023. Considerat ion for continued 5FU Leucovorin with Vectibix. If difficulty with access. Can wait for port placement in the next few weeks. Will follow-up. Repeating labs today. Metastatic malignant neoplasm to liver [id number] C78.7 CT scan of the abdomen and [...] Findings concerning for metastatic colon cancer. Nausea [id number] R11.0 As needed Zofran and Phenergan prescribed . Pain due t o neoplastic disease [id number] 9102 G89.3 Right upper quadrant pain secondary to liver metastasis . Patient currently taking Tylenol. Discussed as needed oxycodone to limit Tylenol exposure. Anemia 264703250 D64.9 Right-side d colon mass concerning for malignancy . Will assess for any signs of iron deficiency . Most recent hemoglobin at 8.0. Concern for blood loss from colon mass. Patient reports dark stools. Adopted [id number] Z62.89 8 Patient is adopted and discussed hereditary gene panel. Patient does have family history of her son having bladder cancer. Will send [facility] hereditary panel. Antineopla stic chemotherapy regimen [id number] Z51.11 Week 1 5FU Leucovorin Vectibix on April 29, 2023.Week 2 5FU Leucovorin Vectibix on May 04, 2023.Week 3 5FU Leucovorin Vectibix on May 11, 2023.Week 4 5FU Leucovorin and Vectibix on June 08, 2023. Dosing of 5FU Leucovorin today only. Next dose of Vectibix next week. Will have 2 week break from next week's dosing. Patient will then return for cycle 2 day 1 Hypomagnesemia 609570712 E83.42 Patient returns on April 29, 2023. Magnesium level is 1.7 today. Will give 1 g magnesium IV. Hypokalemia 73213974 E87 .6 Patient returns on April 29, 2023. Potassium is low at 2.9. Will send prescripti on for potassium 20 mEq daily. Will follow-up labs again next week. Loss of appetite 9533335 6 R63.0 Patient has had nausea and decreased appetite since her cancer diagnosis. She can not tolerate her nutritiona l drinks. She does take Phenergan with relief. She continues to lose weight. Will send prescripti on for Megace. Acute conjunctivitis 537 32236 H10.32 Patient returns on May 11, 2023. She has had erythema, conjuntiva inflammati on, discharged and matted left eye. She has been using warm compresses . Will send prescripti on for eye drops for conjunctiv itis.Will send in repeat prescripti on for eye drops. Diarrhea 61960033 R19.7 Diarrhea has resolved. Patient with recent C diff Deep venou s thrombosis 167707160 I82.409 Patient developed right lower extremity pain and edema.Veno us duplex on May 28, 2023 with evidence of deep vein thrombosis . Started on Eliquis 5 mg 1 tab p.o. b.i.d.. Did not start with Eliquis starter pack due to recent bleeding. Patient had a DVT and a PE in 1990 after her hysterecto my. Anxiety 31130386 F41.9 Patient has had increased anxiety. She is tearful and crying during her visit today due to all of her health problems. She does not want to take an antidepres melina at this time. Discussed low-dose Ativan. Improvemen t in mood overall on visit from June 08, 2023. [id number] Addy Gonzales MD [facility] General Surgery [address] [place] [address] 06/05/2023 10:23:30 06/05/2023 11:32:28 Malignant tumor of ascending colon [id number] C18.2 Needs port placed, cannot do this while actively anticoagul ated. I spoke to Dr. King by phone. Plan is to wait 4-6 weeks as she has an acute DVT and eliquis cannot be stopped for the procedure. I have recommende d that they contact us by phone when she is ok to proceed with surgery and we can save her the long drive in. [id number] Tomy King MD [facility] [address] [place] [address] 06/22/2023 10:06:43 06/22/2023 12:44:59 Malignant tumor of ascending colon [id number] C18.2 CT scan of the abdomen and [...] 8.2 hematocrit 29.0. MCV 67.9. Platelet count 890797. Normal cell differenti al. 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 Labs on June 02, 2023 with CEA at 21.9.Hemog lobin at 10.3 with normal iron studies.Pr evious CT scan on May 18, 2023 with 5.3 cm lesion in the liver right lobe. Decrease in size from previous imaging prior to starting chemothera py. Patient had venous duplex of the right lower extremity on May 28, 2023. Patient had deep venous thrombosis of the superficia l femoral, popliteal vein, and posterior tibial veins as well as peroneal veins consistent with deep venous thrombosis . Patient was started on Eliquis. Labs on June 08, 2023 with white blood cell count 7.5. Red blood count 4.1. Hemoglobin 10.6 and hematocrit 35.2. MCV 86.7. Factor 2 DNA analysis negative for mutation. Factor 5 Leiden gene mutation testing negative. Factor 8 activity level at 250%. CEA at 21.6. Patient returns on June 22, 2023 which would be day 29 of cycle 1 of 5FU Leucovorin and Vectibix. Will have the patient come back in 2 weeks for next dose of therapy. Will reassess Port-A-Cat h placement in the next month. Metastatic malignant neoplasm to liver 12796803 C78.7 CT scan of the abdomen and [...] Findings concerning for metastatic colon cancer. Nausea 474968010 R11.0 As needed Zofran and Phenergan prescribed . Pain due t o neoplastic disease [id number] 9102 G89.3 Right upper quadrant pain secondary to liver metastasis . Patient currently taking Tylenol. Discussed as needed oxycodone to limit Tylenol exposure. Anemia 472855033 D64.9 Right-side d colon mass concerning for malignancy . Will assess for any signs of iron deficiency . Most recent hemoglobin at 8.0. Concern for blood loss from colon mass. Patient reports dark stools. Adopted [id number] Z62.89 8 Patient is adopted and discussed hereditary gene panel. Patient does have family history of her son having bladder cancer. Will send [facility] hereditary panel. Antineopla stic chemotherapy regimen 440151513 Z51.11 Week 1 5FU Leucovorin Vectibix on April 29, 2023.Week 2 5FU Leucovorin Vectibix on May 04, 2023.Week 3 5FU Leucovorin Vectibix on May 11, 2023.Week 4 5FU Leucovorin and Vectibix on June 08, 2023.Day 29 of 5FU Leucovorin and Vectibix on June 22, 2023. Next dose will be in 2 weeks and will be Cycle 2 week 1 of 5FU Leucovorin and Vectibix on July 06, 2023. Hypokalemia 99885544 E87 .6 Patient returns on April 29, 2023. Potassium is low at 2.9. Will send prescripti on for potassium 20 mEq daily. Will follow-up labs again next week. Loss of appetite 1693481 6 R63.0 Patient has had nausea and decreased appetite since her cancer diagnosis. She can not tolerate her nutritiona l drinks. She does take Phenergan with relief. She continues to lose weight. Will send prescripti on for Megace. Acute conjunctivitis 537 47915 H10.32 Patient returns on May 11, 2023. She has had erythema, conjuntiva inflammati on, discharged and matted left eye. She has been using warm compresses . Will send prescripti on for eye drops for conjunctiv itis.Will send in repeat prescripti on for eye drops. Diarrhea 39209348 R19.7 Diarrhea has resolved. Patient with recent C diff Deep venou s thrombosis 556101583 I82.409 Patient developed right lower extremity pain and edema.Veno us duplex on May 28, 2023 with evidence of deep vein thrombosis . Started on Eliquis 5 mg 1 tab p.o. b.i.d.. Did not start with Eliquis starter pack due to recent bleeding. Patient had a DVT and a PE in 1990 after her hysterecto my. Anxiety 80410705 F41.9 Patient has had increased anxiety. She is tearful and crying during her visit today due to all of her health problems. She does not want to take an antidepres melina at this time. Discussed low-dose Ativan. Improvemen t in mood overall on visit from June 08, 2023. [id number] Tomy King MD [facility] [address] [place] [address] 07/13/2023 09:25:11 07/13/2023 10:53:59 Malignant tumor of ascending colon 120114346 C18.2 CT scan of the abdomen and [...] 8.2 hematocrit 29.0. MCV 67.9. Platelet count 443143. Normal cell differenti al. 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 Labs on June 02, 2023 with CEA at 21.9.Hemog lobin at 10.3 with normal iron studies.Pr evious CT scan on May 18, 2023 with 5.3 cm lesion in the liver right lobe. Decrease in size from previous imaging prior to starting chemothera py. Patient had venous duplex of the right lower extremity on May 28, 2023. Patient had deep venous thrombosis of the superficia l femoral, popliteal vein, and posterior tibial veins as well as peroneal veins consistent with deep venous thrombosis . Patient was started on Eliquis. Labs on June 08, 2023 with white blood cell count 7.5. Red blood count 4.1. Hemoglobin 10.6 and hematocrit 35.2. MCV 86.7. Factor 2 DNA analysis negative for mutation. Factor 5 Leiden gene mutation testing negative. Factor 8 activity level at 250%. CEA at 21.6. Patient returns on July 13, 2023 for day 1 of next cycle of 5FU Leucovorin and Vectibix. Would continue on every 2 week dosing as the patient is tolerating and difficult vascular access. Continued decline in CEA. Will repeat imaging prior to next visit. Will reassess if can stop Eliquis. Patient with prior history of venous thromboemb olism prior to right lower extremity venous duplex on May 28, 2023. Will follow-up repeat imaging and reassess if anticoagul ation can be changed. Plan to see the patient back in 2 weeks for next dose of 5FU Leucovorin and Vectibix. Will continue on every 2 week dosing for now. Metastatic malignant neoplasm to liver 23750907 C78.7 CT scan of the abdomen and [...] Findings concerning for metastatic colon cancer. Nausea 651235630 R11.0 As needed Zofran and Phenergan prescribed . Pain due t o neoplastic disease [id number] 9102 G89.3 Right upper quadrant pain secondary to liver metastasis . Patient currently taking Tylenol. Discussed as needed oxycodone to limit Tylenol exposure. Anemia 997177164 D64.9 Right-side d colon mass concerning for malignancy . Will assess for any signs of iron deficiency . Most recent hemoglobin at 8.0. Concern for blood loss from colon mass. Patient reports dark stools. Adopted [id number] Z62.89 8 Patient is adopted and discussed hereditary gene panel. Patient does have family history of her son having bladder cancer. Will send [facility] hereditary panel. Antineopla stic chemotherapy regimen 306963377 Z51.11 Week 1 5FU Leucovorin Vectibix on April 29, 2023.Week 2 5FU Leucovorin Vectibix on May 04, 2023.Week 3 5FU Leucovorin Vectibix on May 11, 2023.Week 4 5FU Leucovorin and Vectibix on June 08, 2023.Day 29 of 5FU Leucovorin and Vectibix on June 22, 2023. Cycle 2 day 1 of 5FU Leucovorin and Vectibix on July 13, 2023. Hypokalemia 64458916 E87 .6 Patient returns on April 29, 2023. Potassium is low at 2.9. Will send prescripti on for potassium 20 mEq daily. Will follow-up labs again next week. Loss of appetite 9459607 6 R63.0 Patient has had nausea and decreased appetite since her cancer diagnosis. She can not tolerate her nutritiona l drinks. She does take Phenergan with relief. She continues to lose weight. Will send prescripti on for Megace. Acute conjunctivitis 537 73610 H10.32 Patient returns on May 11, 2023. She has had erythema, conjuntiva inflammati on, discharged and matted left eye. She has been using warm compresses . Will send prescripti on for eye drops for conjunctiv itis.Will send in repeat prescripti on for eye drops. Diarrhea 60147100 R19.7 Diarrhea has resolved. Patient with recent C diff Deep venou s thrombosis [id number] I82.411 Patient developed right lower extremity pain and edema.Veno us duplex on May 28, 2023 with evidence of deep vein thrombosis . Started on Eliquis 5 mg 1 tab p.o. b.i.d.. Did not start with Eliquis starter pack due to recent bleeding. Patient had a DVT and a PE in 1990 after her hysterecto my. Anxiety 47562623 F41.9 Patient has had increased anxiety. She is tearful and crying during her visit today due to all of her health problems. She does not want to take an antidepres melina at this time. Discussed low-dose Ativan. Improvemen t in mood overall on visit from June 08, 2023. [id number] Hanna Snider PA-C [facility] [address] [place] [address] 07/27/2023 09:02:25 07/27/2023 10:25:44 Malignant tumor of ascending colon 783535734 C18.2 CT scan of the abdomen and [...] 8.2 hematocrit 29.0. MCV 67.9. Platelet count 909077. Normal cell differenti al. 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 Labs on June 02, 2023 with CEA at 21.9.Hemog lobin at 10.3 with normal iron studies.Pr evious CT scan on May 18, 2023 with 5.3 cm lesion in the liver right lobe. Decrease in size from previous imaging prior to starting chemothera py. Patient had venous duplex of the right lower extremity on May 28, 2023. Patient had deep venous thrombosis of the superficia l femoral, popliteal vein, and posterior tibial veins as well as peroneal veins consistent with deep venous thrombosis . Patient was started on Eliquis. Labs on June 08, 2023 with white blood cell count 7.5. Red blood count 4.1. Hemoglobin 10.6 and hematocrit 35.2. MCV 86.7. Factor 2 DNA analysis negative for mutation. Factor 5 Leiden gene mutation testing negative. Factor 8 activity level at 250%. CEA at 21.6. Patient returns on July 13, 2023 for day 1 of next cycle of 5FU Leucovorin and Vectibix. Would continue on every 2 week dosing as the patient is tolerating and difficult vascular access. Continued decline in CEA. Will repeat imaging prior to next visit. Will reassess if can stop Eliquis. Patient with prior history of venous thromboemb olism prior to right lower extremity venous duplex on May 28, 2023. Will follow-up repeat imaging and reassess if anticoagul ation can be changed. Plan to see the patient back in 2 weeks for next dose of 5FU Leucovorin and Vectibix. Will continue on every 2 week dosing for now. Patient returns for follow-up on July 27, 2023. She is doing well. She has had a mild rash on her chest but has used Benadryl with relief. Then rash is nearly gone. She is scheduled for follow-up imaging today. Will follow-up venous duplex of right lower extremity to see if patient can possibly discontinu e Eliquis. Will follow-up Metastatic malignant neoplasm to liver 88013406 C78.7 CT scan of the abdomen and [...] Findings concerning for metastatic colon cancer. Nausea 070427468 R11.0 As needed Zofran and Phenergan prescribed . Pain due t o neoplastic disease 3623654974 9102 G89.3 Right upper quadrant pain secondary to liver metastasis . Patient currently taking Tylenol. Discussed as needed oxycodone to limit Tylenol exposure. Anemia 653428164 D64.9 Right-side d colon mass concerning for malignancy . Will assess for any signs of iron deficiency . Most recent hemoglobin at 8.0. Concern for blood loss from colon mass. Patient reports dark stools. Adopted 323261949 Z62.89 8 Patient is adopted and discussed hereditary gene panel. Patient does have family history of her son having bladder cancer. Will send [facility] hereditary panel. Antineopla stic chemotherapy regimen 368434996 Z51.11 Week 1 5FU Leucovorin Vectibix on April 29, 2023.Week 2 5FU Leucovorin Vectibix on May 04, 2023.Week 3 5FU Leucovorin Vectibix on May 11, 2023.Week 4 5FU Leucovorin and Vectibix on June 08, 2023.Day 29 of 5FU Leucovorin and Vectibix on June 22, 2023. Cycle 2 of 5FU Leucovorin and Vectibix on July 13, 2023.Cycle 2 of 5FU Leucovorin and Vectibix on July 27, 2023. Hypokalemia 32568752 E87 .6 Patient returns on April 29, 2023. Potassium is low at 2.9. Will send prescripti on for potassium 20 mEq daily. Will follow-up labs again next week. Loss of appetite 7548061 6 R63.0 Patient has had nausea and decreased appetite since her cancer diagnosis. She can not tolerate her nutritiona l drinks. She does take Phenergan with relief. She continues to lose weight. Will send prescripti on for Megace. Acute conjunctivitis 537 97253 H10.32 Patient returns on May 11, 2023. She has had erythema, conjuntiva inflammati on, discharged and matted left eye. She has been using warm compresses . Will send prescripti on for eye drops for conjunctiv itis.Will send in repeat prescripti on for eye drops. Diarrhea 60872572 R19.7 Diarrhea has resolved. Patient with recent C diff Deep venou s thrombosis 107269343 I82.409 Patient developed right lower extremity pain and edema.Veno us duplex on May 28, 2023 with evidence of deep vein thrombosis . Started on Eliquis 5 mg 1 tab p.o. b.i.d.. Did not start with Eliquis starter pack due to recent bleeding. Patient had a DVT and a PE in 1990 after her hysterecto my. Anxiety 45481164 F41.9 Patient has had increased anxiety. She is tearful and crying during her visit today due to all of her health problems. She does not want to take an antidepres melina at this time. Discussed low-dose Ativan. Improvemen t in mood overall on visit from June 08, 2023. [id number] Hanna Snider PA-C [facility] [address] [place] [address] 08/10/2023 09:01:37 08/10/2023 09:59:21 Malignant tumor of ascending colon 997352959 C18.2 CT scan of the abdomen and [...] 8.2 hematocrit 29.0. MCV 67.9. Platelet count 123961. Normal cell differenti al. 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 Labs on June 02, 2023 with CEA at 21.9.Hemog lobin at 10.3 with normal iron studies.Pr evious CT scan on May 18, 2023 with 5.3 cm lesion in the liver right lobe. Decrease in size from previous imaging prior to starting chemothera py. Patient had venous duplex of the right lower extremity on May 28, 2023. Patient had deep venous thrombosis of the superficia l femoral, popliteal vein, and posterior tibial veins as well as peroneal veins consistent with deep venous thrombosis . Patient was started on Eliquis. Labs on June 08, 2023 with white blood cell count 7.5. Red blood count 4.1. Hemoglobin 10.6 and hematocrit 35.2. MCV 86.7. Factor 2 DNA analysis negative for mutation. Factor 5 Leiden gene mutation testing negative. Factor 8 activity level at 250%. CEA at 21.6. Patient returns on July 13, 2023 for day 1 of next cycle of 5FU Leucovorin and Vectibix. Would continue on every 2 week dosing as the patient is tolerating and difficult vascular access. Continued decline in CEA. Will repeat imaging prior to next visit. Will reassess if can stop Eliquis. Patient with prior history of venous thromboemb olism prior to right lower extremity venous duplex on May 28, 2023. Will follow-up repeat imaging and reassess if anticoagul ation can be changed. Plan to see the [...] extremity DVT. Will continue with Eliquis. Patient returns for follow-up on August 10, 2023. She is doing well. She does have irritation of the eyes secondary to chemothera py. No changes in vision. Will send prescripti on for eye drops. Will follow-up. Metastatic malignant neoplasm to liver 84597770 C78.7 CT scan of the abdomen and [...] Findings concerning for metastatic colon cancer. Nausea 156534806 R11.0 As needed Zofran and Phenergan prescribed . Pain due t o neoplastic disease 0531048870 9102 G89.3 Right upper quadrant pain secondary to liver metastasis . Patient currently taking Tylenol. Discussed as needed oxycodone to limit Tylenol exposure. Anemia 682570445 D64.9 Right-side d colon mass concerning for malignancy . Will assess for any signs of iron deficiency . Most recent hemoglobin at 8.0. Concern for blood loss from colon mass. Patient reports dark stools. Adopted 738125775 Z62.89 8 Patient is adopted and discussed hereditary gene panel. Patient does have family history of her son having bladder cancer. Will send [facility] hereditary panel. Antineopla stic chemotherapy regimen 256938632 Z51.11 Week 1 5FU Leucovorin Vectibix on [...] 5FU Leucovorin and Vectibix on August 10, 2023. Hypokalemia 42287908 E87 .6 Patient returns on April 29, 2023. Potassium is low at 2.9. Will send prescripti on for potassium 20 mEq daily. Will follow-up labs again next week. Loss of appetite 6343751 6 R63.0 Patient has had nausea and decreased appetite since her cancer diagnosis. She can not tolerate her nutritiona l drinks. She does take Phenergan with relief. She continues to lose weight. Will send prescripti on for Megace. Acute conjunctivitis 537 06801 H10.32 Patient returns on May 11, 2023. She has had erythema, conjuntiva inflammati on, discharged and matted left eye. She has been using warm compresses . Will send prescripti on for eye drops for conjunctiv itis.Will send in repeat prescripti on for eye drops. Diarrhea 03334985 R19.7 Diarrhea has resolved. Patient with recent C diff Deep venou s thrombosis 340994837 I82.409 Patient developed right lower extremity pain and edema.Veno us duplex on May 28, 2023 with evidence of deep vein thrombosis . Started on Eliquis 5 mg 1 tab p.o. b.i.d.. Did not start with Eliquis starter pack due to recent bleeding. Patient had a DVT and a PE in 1990 after her hysterecto my. Anxiety 63233154 F41.9 Patient has had increased anxiety. She is tearful and crying during her visit today due to all of her health problems. She does not want to take an antidepres melina at this time. Discussed low-dose Ativan. Improvemen t in mood overall on visit from June 08, 2023. [id number] Tomy King MD [facility] [address] [place] [address] 08/24/2023 09:22:37 08/24/2023 09:52:19 Malignant tumor of ascending colon 343212151 C18.2 CT scan of the abdomen and [...] 8.2 hematocrit 29.0. MCV 67.9. Platelet count 675150. Normal cell differenti al. 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 Labs on June 02, 2023 with CEA at 21.9.Hemog lobin at 10.3 with normal iron studies.Pr evious CT scan on May 18, 2023 with 5.3 cm lesion in the liver right lobe. Decrease in size from previous imaging prior to starting chemothera py. Patient had venous duplex of the right lower extremity on May 28, 2023. Patient had deep venous thrombosis of the superficia l femoral, popliteal vein, and posterior tibial veins as well as peroneal veins consistent with deep venous thrombosis . Patient was started on Eliquis. Labs on June 08, 2023 with white blood cell count 7.5. Red blood count 4.1. Hemoglobin 10.6 and hematocrit 35.2. MCV 86.7. Factor 2 DNA analysis negative for mutation. Factor 5 Leiden gene mutation testing negative. Factor 8 activity level at 250%. CEA at 21.6. Patient returns on July 13, 2023 for day 1 of next cycle of 5FU Leucovorin and Vectibix. Would continue on every 2 week dosing as the patient is tolerating and difficult vascular access.CT scan of the abdomen and pelvis on July 27, 2023 with multiple liver lesions seen however most are smaller in size. Largest lesions have continued improved by about 2 cm. Would continue with current therapy. No new lesions. Venous duplex on August 03, 2023 with extensive right lower extremity DVT. Will continue with Eliquis. Patient returns for follow-up on August 24, 2023. She is doing fairly well. No acute changes. She is using eye drops with relief of irritation of the eyes secondary to chemothera py. No changes in vision. Will follow-up. Patient seen and examined in infusion area on August 24, 2023. Agree with treatment planning. Discussed if conjunctiv itis worsened would potentiall y skip dose of Vectibix in 2 weeks. Will follow-up Metastatic malignant neoplasm to liver 69017980 C78.7 CT scan of the abdomen and [...] Findings concerning for metastatic colon cancer. Nausea 489275617 R11.0 As needed Zofran and Phenergan prescribed . Pain due t o neoplastic disease [id number] 9102 G89.3 Right upper quadrant pain secondary to liver metastasis . Patient currently taking Tylenol. Discussed as needed oxycodone to limit Tylenol exposure. Anemia 085248660 D64.9 Right-side d colon mass concerning for malignancy . Will assess for any signs of iron deficiency . Most recent hemoglobin at 8.0. Concern for blood loss from colon mass. Patient reports dark stools. Adopted [id number] Z62.89 8 Patient is adopted and discussed hereditary gene panel. Patient does have family history of her son having bladder cancer. Will send [facility] hereditary panel. Antineopla stic chemotherapy regimen [id number] Z51.11 Week 1 5FU Leucovorin Vectibix on [...] Leucovorin and Vectibix on August 24, 2023. Hypokalemia 27863472 E87 .6 Patient returns on April 29, 2023. Potassium is low at 2.9. Will send prescripti on for potassium 20 mEq daily. Will follow-up labs again next week. Loss of appetite 2052024 6 R63.0 Patient has had nausea and decreased appetite since her cancer diagnosis. She can not tolerate her nutritiona l drinks. She does take Phenergan with relief. She continues to lose weight. Will send prescripti on for Megace. Acute conjunctivitis 537 51226 H10.32 Patient returns on May 11, 2023. She has had erythema, conjuntiva inflammati on, discharged and matted left eye. She has been using warm compresses . Will send prescripti on for eye drops for conjunctiv itis.Will send in repeat prescripti on for eye drops. Diarrhea 60126391 R19.7 Diarrhea has resolved. Patient with recent C diff Deep venou s thrombosis [id number] I82.409 Patient developed right lower extremity pain and edema.Veno us duplex on May 28, 2023 with evidence of deep vein thrombosis . Started on Eliquis 5 mg 1 tab p.o. b.i.d.. Did not start with Eliquis starter pack due to recent bleeding. Patient had a DVT and a PE in 1990 after her hysterecto my. Anxiety 41966102 F41.9 Patient has had increased anxiety. She is tearful and crying during her visit today due to all of her health problems. She does not want to take an antidepres melina at this time. Discussed low-dose Ativan. Improvemen t in mood overall on visit from June 08, 2023. [id number] Hanna Snider PA-C [facility] [address] [place] [address] 09/07/2023 08:42:30 09/07/2023 09:21:28 Malignant tumor of ascending colon [id number] C18.2 CT scan of the abdomen and [...] 8.2 hematocrit 29.0. MCV 67.9. Platelet count 162910. Normal cell differenti al. 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 Labs on June 02, 2023 with CEA at 21.9.Hemog lobin at 10.3 with normal iron studies.Pr evious CT scan on May 18, 2023 with 5.3 cm lesion in the liver right lobe. Decrease in size from previous imaging prior to starting chemothera py. Patient had venous duplex of the right lower extremity on May 28, 2023. Patient had deep venous thrombosis of the superficia l femoral, popliteal vein, and posterior tibial veins as well as peroneal veins consistent with deep venous thrombosis . Patient was started on Eliquis. Labs on June 08, 2023 with white blood cell count 7.5. Red blood count 4.1. Hemoglobin 10.6 and hematocrit 35.2. MCV 86.7. Factor 2 DNA analysis negative for mutation. Factor 5 Leiden gene mutation testing negative. Factor 8 activity level at 250%. CEA at 21.6. Patient returns on July 13, 2023 for day 1 of next cycle of 5FU Leucovorin and Vectibix. Would continue on every 2 week dosing as the patient is tolerating and difficult vascular access.CT scan of the abdomen and pelvis on July 27, 2023 with multiple liver lesions seen however most are smaller in size. Largest lesions have continued improved by about 2 cm. Would continue with current therapy. No new lesions. Venous duplex on August 03, 2023 with extensive right lower extremity DVT. Will continue with Eliquis. Patient returns for follow-up on August 24, 2023. She is doing fairly well. No acute changes. She is using eye drops with relief of irritation of the eyes secondary to chemothera py. No changes in vision. Will follow-up. Patient seen and examined in infusion area on August 24, 2023. Agree with treatment planning. Discussed if conjunctiv itis worsened would potentiall y skip dose of Vectibix in 2 weeks. Will follow-up Patient returns for follow-up on September 07, 2023. Patient continues to have irritation of the eyes secondary to chemothera py. The left is worse than the right. She is using eye drops without much improvemen t. Will hold Vectibix today to see if any improvemen t. Will follow-up. Metastatic malignant neoplasm to liver 11370913 C78.7 CT scan of the abdomen and [...] Findings concerning for metastatic colon cancer. Nausea 036243919 R11.0 As needed Zofran and Phenergan prescribed . Pain due t o neoplastic disease [id number] 9102 G89.3 Right upper quadrant pain secondary to liver metastasis . Patient currently taking Tylenol. Discussed as needed oxycodone to limit Tylenol exposure. Anemia 605315579 D64.9 Right-side d colon mass concerning for malignancy . Will assess for any signs of iron deficiency . Most recent hemoglobin at 8.0. Concern for blood loss from colon mass. Patient reports dark stools. Adopted [id number] Z62.89 8 Patient is adopted and discussed hereditary gene panel. Patient does have family history of her son having bladder cancer. Will send [facility] hereditary panel. Antineopla stic chemotherapy regimen 405287475 Z51.11 Week 1 5FU Leucovorin Vectibix on [...] 5FU Leucovorin and Vectibix on August 24, 2023.Cycle 5 of 5FU Leucovorin on September 07, 2023. Holding Vectibix today secondary to conjunctiv itis Hypokalemia 25028673 E87 .6 Patient returns on April 29, 2023. Potassium is low at 2.9. Will send prescripti on for potassium 20 mEq daily. Will follow-up labs again next week. Loss of appetite 0698364 6 R63.0 Patient has had nausea and decreased appetite since her cancer diagnosis. She can not tolerate her nutritiona l drinks. She does take Phenergan with relief. She continues to lose weight. Will send prescripti on for Megace. Acute conjunctivitis 537 92328 H10.32 Patient returns on May 11, 2023. She has had erythema, conjuntiva inflammati on, discharged and matted left eye. She has been using warm compresses . Will send prescripti on for eye drops for conjunctiv itis.Will send in repeat prescripti on for eye drops. Diarrhea 25125578 R19.7 Diarrhea has resolved. Patient with recent C diff Deep venou s thrombosis 071782142 I82.409 Patient developed right lower extremity pain and edema.Veno us duplex on May 28, 2023 with evidence of deep vein thrombosis . Started on Eliquis 5 mg 1 tab p.o. b.i.d.. Did not start with Eliquis starter pack due to recent bleeding. Patient had a DVT and a PE in 1990 after her hysterecto my. Anxiety 45606032 F41.9 Patient has had increased anxiety. She is tearful and crying during her visit today due to all of her health problems. She does not want to take an antidepres melina at this time. Discussed low-dose Ativan. Improvemen t in mood overall on visit from June 08, 2023. [id number] Tomy King MD [facility] [address] [place] [address] 09/21/2023 09:41:41 09/21/2023 11:20:44 Malignant tumor of ascending colon 794206987 C18.2 CT scan of the abdomen and [...] 8.2 hematocrit 29.0. MCV 67.9. Platelet count 474160. Normal cell differenti al. 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 Labs on June 02, 2023 with CEA at 21.9.Hemog lobin at 10.3 with normal iron studies.Pr evious CT scan on May 18, 2023 with 5.3 cm lesion in the liver right lobe. Decrease in size from previous imaging prior to starting chemothera py. Venous duplex on August 03, 2023 with extensive right lower extremity DVT. Will continue with Eliquis. Patient returns on September 21, 2023. Vectibix was held on last visit. Continued improvemen t in CEA. Will plan to repeat imaging in September 2023. Would plan to repeat venous duplex of lower extremity in September/October 2023. Hemoglobin continues to improve. Patient returns for continued dosing of 5FU Vectibix today. Continues with chemothera py with 5FU leucovorin and vectibix on September 21, 2023. Irritation of membranes of the eyes bilaterall y continues to improve. Metastatic malignant neoplasm to liver 57820994 C78.7 CT scan of the abdomen and [...] Findings concerning for metastatic colon cancer. Nausea 475145868 R11.0 As needed Zofran and Phenergan prescribed . Pain due t o neoplastic disease [id number] 9102 G89.3 Right upper quadrant pain secondary to liver metastasis . Patient currently taking Tylenol. Discussed as needed oxycodone to limit Tylenol exposure. Anemia 395435408 D64.9 Right-side d colon mass concerning for malignancy . Will assess for any signs of iron deficiency . Most recent hemoglobin at 8.0. Concern for blood loss from colon mass. Patient reports dark stools. Adopted 722188260 Z62.89 8 Patient is adopted and discussed hereditary gene panel. Patient does have family history of her son having bladder cancer. Will send [facility] hereditary panel. Antineopla stic chemotherapy regimen 811281616 Z51.11 Week 1 5FU Leucovorin Vectibix on [...] 24, 2023. Cycle 6 of 5FU Leucovorin with Vectibix on September 21, 2023. Previous dose held secondary to conjunctiv itis. Hypokalemia 77045590 E87 .6 Patient returns on April 29, 2023. Potassium is low at 2.9. Will send prescripti on for potassium 20 mEq daily. Will follow-up labs again next week. Loss of appetite 7477564 6 R63.0 Patient has had nausea and decreased appetite since her cancer diagnosis. She can not tolerate her nutritiona l drinks. She does take Phenergan with relief. She continues to lose weight. Will send prescripti on for Megace. Acute conjunctivitis 083 87607 H10.32 Patient returns on May 11, 2023. She has had erythema, conjuntiva inflammati on, discharged and matted left eye. She has been using warm compresses . Will send prescripti on for eye drops for conjunctiv itis.Will send in repeat prescripti on for eye drops. Diarrhea 45858621 R19.7 Diarrhea has resolved. Patient with recent C diff Deep venou s thrombosis 883252010 I82.409 Patient developed right lower extremity pain and edema.Veno us duplex on May 28, 2023 with evidence of deep vein thrombosis . Started on Eliquis 5 mg 1 tab p.o. b.i.d.. Did not start with Eliquis starter pack due to recent bleeding. Patient had a DVT and a PE in 1990 after her hysterecto my. Anxiety 30326481 F41.9 Patient has had increased anxiety. She is tearful and crying during her visit today due to all of her health problems. She does not want to take an antidepres melina at this time. Discussed low-dose Ativan. Improvemen t in mood overall on visit from June 08, 2023. [id number] Hanna Snider PA-C [facility] [address] [facility] [address] [place] [address] 10/05/2023 09:19:08 10/05/2023 10:17:18 Malignant tumor of ascending colon 822701679 C18.2 CT scan of the abdomen and [...] 8.2 hematocrit 29.0. MCV 67.9. Platelet count 756611. Normal cell differenti al. 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 Labs on June 02, 2023 with CEA at 21.9.Hemog lobin at 10.3 with normal iron studies.Pr evious CT scan on May 18, 2023 with 5.3 cm lesion in the liver right lobe. Decrease in size from previous imaging prior to starting chemothera py. Venous duplex on August 03, 2023 with extensive right lower extremity DVT. Will continue with Eliquis. Patient returns on September 21, 2023. Vectibix was held on last visit. Continued improvemen t in CEA. Will plan to repeat imaging in September 2023. Would plan to repeat venous duplex of lower extremity in October 2023. Hemoglobin continues to improve. Patient returns for continued dosing of 5FU Vectibix today. Patient returns on October 05, 2023. Continued improvemen t in CEA. Will plan to repeat imaging in September 2023. Would plan to repeat venous duplex of lower extremity in October 2023. Will schedule imaging. Hemoglobin continues to improve. Will hold Vectibix today on October 05, 2023 due to irritation of membranes of the eyes bilaterall y. Metastatic malignant neoplasm to liver 83600332 C78.7 CT scan of the abdomen and [...] Findings concerning for metastatic colon cancer. Nausea 716506226 R11.0 As needed Zofran and Phenergan prescribed . Pain due t o neoplastic disease [id number] 9102 G89.3 Right upper quadrant pain secondary to liver metastasis . Patient currently taking Tylenol. Discussed as needed oxycodone to limit Tylenol exposure. Anemia 661624541 D64.9 Right-side d colon mass concerning for malignancy . Will assess for any signs of iron deficiency . Most recent hemoglobin at 8.0. Concern for blood loss from colon mass. Patient reports dark stools. Adopted 194947205 Z62.89 8 Patient is adopted and discussed hereditary gene panel. Patient does have family history of her son having bladder cancer. Will send [facility] hereditary panel. Antineopla stic chemotherapy regimen 597958186 Z51.11 Week 1 5FU Leucovorin Vectibix on [...] 24, 2023. Cycle 6 of 5FU Leucovorin with Vectibix on September 21, 2023. Previous dose held secondary to conjunctiv itis.Cycle 7 of 5FU Leucovorin and Vectibix on October 05, 2023. Will hold Vectibix today due to irritation of membranes of the eyes bilaterall y. Hypokalemia 07025741 E87 .6 Patient returns on April 29, 2023. Potassium is low at 2.9. Will send prescripti on for potassium 20 mEq daily. Will follow-up labs again next week. Loss of appetite 2027591 6 R63.0 Patient has had nausea and decreased appetite since her cancer diagnosis. She can not tolerate her nutritiona l drinks. She does take Phenergan with relief. She continues to lose weight. Will send prescripti on for Megace. Acute conjunctivitis 537 57443 H10.32 Patient returns on May 11, 2023. She has had erythema, conjuntiva inflammati on, discharged and matted left eye. She has been using warm compresses . Will send prescripti on for eye drops for conjunctiv itis.Will send in repeat prescripti on for eye drops. Diarrhea 70869024 R19.7 Diarrhea has resolved. Patient with recent C diff Deep venou s thrombosis 886048496 I82.409 Patient developed right lower extremity pain and edema.Veno us duplex on May 28, 2023 with evidence of deep vein thrombosis . Started on Eliquis 5 mg 1 tab p.o. b.i.d.. Did not start with Eliquis starter pack due to recent bleeding. Patient had a DVT and a PE in 1990 after her hysterecto my. Anxiety 69934270 F41.9 Patient has had increased anxiety. She is tearful and crying during her visit today due to all of her health problems. She does not want to take an antidepres melina at this time. Discussed low-dose Ativan. Improvemen t in mood overall on visit from June 08, 2023. [id number] Hanna Snider PA-C [facility] [address] [place] [address] 10/19/2023 09:07:50 10/19/2023 10:19:57 Malignant tumor of ascending colon 055620637 C18.2 CT scan of the abdomen and [...] 8.2 hematocrit 29.0. MCV 67.9. Platelet count 250985. Normal cell differenti al. 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 Labs on June 02, 2023 with CEA at 21.9.Hemog lobin at 10.3 with normal iron studies.Pr evious CT scan on May 18, 2023 with 5.3 cm lesion in the liver right lobe. Decrease in size from previous imaging prior to starting chemothera py. Venous duplex on August 03, 2023 with extensive right lower extremity DVT. Will continue with Eliquis. Patient returns on September 21, 2023. Vectibix was held on last visit. Continued improvemen t in CEA. Will plan to repeat imaging in September 2023. Would plan to repeat venous duplex of lower extremity in October 2023. Hemoglobin continues to improve. Patient returns for continued dosing of 5FU Vectibix today.Dorie ent returns on October 19, 2023. Continued improvemen t in CEA. Will plan to repeat imaging in September 2023. Would plan to repeat venous duplex of lower extremity in October 2023. Will schedule imaging. Hemoglobin continues to improve. Will resume Vectibix today on October 19, 2023 due to significan t improvemen t of irritation of membranes of the eyes bilaterall y. had mild bilateral peripheral edema. No erythema. Will send prescripti on for Lasix 20 mg to take p.r.n.. Will follow-up venous duplex. Patient's nephew unexpected ly over the weekend. She is grieving appropriat froilan. Metastatic malignant neoplasm to liver 79070887 C78.7 CT scan of the abdomen and [...] Findings concerning for metastatic colon cancer. Nausea 714518857 R11.0 As needed Zofran and Phenergan prescribed . Pain due t o neoplastic disease 0755298869 9102 G89.3 Right upper quadrant pain secondary to liver metastasis . Patient currently taking Tylenol. Discussed as needed oxycodone to limit Tylenol exposure. Anemia 831944656 D64.9 Right-side d colon mass concerning for malignancy . Will assess for any signs of iron deficiency . Most recent hemoglobin at 8.0. Concern for blood loss from colon mass. Patient reports dark stools. Adopted 450203204 Z62.89 8 Patient is adopted and discussed hereditary gene panel. Patient does have family history of her son having bladder cancer. Will send [facility] hereditary panel. Antineopla stic chemotherapy regimen 553402340 Z51.11 Week 1 5FU Leucovorin Vectibix on [...] 24, 2023. Cycle 6 of 5FU Leucovorin with Vectibix on September 21, 2023. Previous dose held secondary to conjunctiv itis.Cycle 7 of 5FU Leucovorin and Vectibix on October 05, 2023. Will hold Vectibix today due to irritation of membranes of the eyes bilaterall y.Cycle 8 of 5FU Leucovorin with Vectibix on October 19, 2023. Hypokalemia 95992548 E87 .6 Patient returns on April 29, 2023. Potassium is low at 2.9. Will send prescripti on for potassium 20 mEq daily. Will follow-up labs again next week. Loss of appetite 5384231 6 R63.0 Patient has had nausea and decreased appetite since her cancer diagnosis. She can not tolerate her nutritiona l drinks. She does take Phenergan with relief. She continues to lose weight. Will send prescripti on for Megace. Acute conjunctivitis 537 09995 H10.32 Patient returns on May 11, 2023. She has had erythema, conjuntiva inflammati on, discharged and matted left eye. She has been using warm compresses . Will send prescripti on for eye drops for conjunctiv itis.Will send in repeat prescripti on for eye drops. Diarrhea 64156055 R19.7 Diarrhea has resolved. Patient with recent C diff Deep venou s thrombosis 000783976 I82.409 Patient developed right lower extremity pain and edema.Veno us duplex on May 28, 2023 with evidence of deep vein thrombosis . Started on Eliquis 5 mg 1 tab p.o. b.i.d.. Did not start with Eliquis starter pack due to recent bleeding. Patient had a DVT and a PE in 1990 after her hysterecto my. Anxiety 67187285 F41.9 Patient has had increased anxiety. She is tearful and crying during her visit today due to all of her health problems. She does not want to take an antidepres melina at this time. Discussed low-dose Ativan. Improvemen t in mood overall on visit from June 08, 2023. [id number] Hanna Snider PA-C [facility] [address] [place] [address] 11/02/2023 09:20:10 11/02/2023 09:58:16 Malignant tumor of ascending colon 092740266 C18.2 CT scan of the abdomen and [...] 8.2 hematocrit 29.0. MCV 67.9. Platelet count 575689. Normal cell differenti al. 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 Labs on June 02, 2023 with CEA at 21.9.Hemog lobin at 10.3 with normal iron studies.Pr evious CT scan on May 18, 2023 with 5.3 cm lesion in the liver right lobe. Decrease in size from previous imaging prior to starting chemothera py. Venous duplex on August 03, 2023 with extensive right lower extremity DVT. Will continue with Eliquis. Venous duplex on October 20, 2023 with no evidence of right lower extremity DVT. Clot resolution . Discontinu ed Eliquis. Started aspirin 81 mg p.o. daily. Patient returns on November 02, 2023. Continued improvemen t in CEA. Significan t improvemen t of irritation of membranes of the eyes bilaterall y. Patient will receive Vectibix today on October 19, 2023 since eyes have improved. Will refer for Port-A-Cat h since patient has discontinu ed Eliquis Metastatic malignant neoplasm to liver 52901589 C78.7 CT scan of the abdomen and [...] Findings concerning for metastatic colon cancer. Nausea 804646579 R11.0 As needed Zofran and Phenergan prescribed . Pain due t o neoplastic disease 0665137876 9102 G89.3 Right upper quadrant pain secondary to liver metastasis . Patient currently taking Tylenol. Discussed as needed oxycodone to limit Tylenol exposure. Anemia 293681649 D64.9 Right-side d colon mass concerning for malignancy . Will assess for any signs of iron deficiency . Most recent hemoglobin at 8.0. Concern for blood loss from colon mass. Patient reports dark stools. Adopted 903271555 Z62.89 8 Patient is adopted and discussed hereditary gene panel. Patient does have family history of her son having bladder cancer. Will send [facility] hereditary panel. Antineopla stic chemotherapy regimen 108909205 Z51.11 Week 1 5FU Leucovorin Vectibix on [...] 24, 2023. Cycle 6 of 5FU Leucovorin with Vectibix on September 21, 2023. Previous dose held secondary to conjunctiv itis.Cycle 7 of 5FU Leucovorin and Vectibix on October 05, 2023. Will hold Vectibix today due to irritation of membranes of the eyes bilaterall y.Cycle 8 of 5FU Leucovorin with Vectibix on October 19, 2023.Cycle 9 of 5FU Leucovorin with Vectibix on November 02, 2023. Hypokalemia 03881347 E87 .6 Patient returns on April 29, 2023. Potassium is low at 2.9. Will send prescripti on for potassium 20 mEq daily. Will follow-up labs again next week. Loss of appetite 6989761 6 R63.0 Patient has had nausea and decreased appetite since her cancer diagnosis. She can not tolerate her nutritiona l drinks. She does take Phenergan with relief. She continues to lose weight. Will send prescripti on for Megace. Acute conjunctivitis 537 71182 H10.32 Patient returns on May 11, 2023. She has had erythema, conjuntiva inflammati on, discharged and matted left eye. She has been using warm compresses . Will send prescripti on for eye drops for conjunctiv itis.Will send in repeat prescripti on for eye drops. Diarrhea 29733190 R19.7 Diarrhea has resolved. Patient with recent C diff Deep venou s thrombosis 117335223 I82.409 Patient developed right lower extremity pain and edema.Veno us duplex on May 28, 2023 with evidence of deep vein thrombosis . Started on Eliquis 5 mg 1 tab p.o. b.i.d.. Did not start with Eliquis starter pack due to recent bleeding. Patient had a DVT and a PE in 1990 after her hysterecto my. Anxiety 22900792 F41.9 Patient has had increased anxiety. She is tearful and crying during her visit today due to all of her health problems. She does not want to take an antidepres melina at this time. Discussed low-dose Ativan. Improvemen t in mood overall on visit from June 08, 2023. [id number] Addy Gonzales MD [facility] [address] [place] [address] 11/03/2023 13:09:58 11/03/2023 14:02:01 Malignant tumor of ascending colon 103961849 C18.2 I have scheduled the patient for urgent port placement. Informed consent was obtained. Risks and benefits of the procedure, including but not limited to, bleeding, infection, damage to surroundin g structures and ongoing symptoms were discussed. Standard of care efforts are taken to minimize risks. Typical hospital stay and recovery were reviewed. The typical postoperat brown pain regimen and avoidance of narcotics were discussed. The patient verbalized understand ing of the plan including the risks and benefits. Appropriat e preoperati ve testing as clinically indicated were ordered as a part of this patient's care. [id number] Hanna Snider PA-C [facility] [address] [place] [address] 11/23/2023 09:05:54 11/23/2023 09:52:19 Malignant tumor of ascending colon 433512426 C18.2 CT scan of the abdomen and [...] 8.2 hematocrit 29.0. MCV 67.9. Platelet count 437142. Normal cell differenti al. 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 Labs on June 02, 2023 with CEA at 21.9.Hemog lobin at 10.3 with normal iron studies.Pr evious CT scan on May 18, 2023 with 5.3 cm lesion in the liver right lobe. Decrease in size from previous imaging prior to starting chemothera py. Venous duplex on August 03, 2023 with extensive right lower extremity DVT. Will continue with Eliquis. Venous duplex on October 20, 2023 with no evidence of right lower extremity DVT. Clot resolution . Discontinu ed Eliquis. Started aspirin 81 mg p.o. daily.Stab le CT of chest, abdomen, and pelvis on November 05, 2023. Stable CT of chest, abdomen, and pelvis on November 05, 2023. Patient returns on November 23, 2023. Continued improvemen t in CEA. Significan t improvemen t of irritation of membranes of the eyes bilaterall y. Patient will receive Vectibix today on November 23, 2023 since eyes have improved. Patient has had a [place] h since visit. Patient is struggling with anxiety and depression . She has had some recent deaths in the family. Patient is tearful during her visit today. She also has insomnia. She is taking Mirtazapin e 15 mg daily and lorazepam as needed. Offered referral to therapist but patient declines at this time. Will increase Mirtazapin e dose to 30 mg daily. Metastatic malignant neoplasm to liver [id number] C78.7 CT scan of the abdomen and [...] Findings concerning for metastatic colon cancer. Nausea [id number] R11.0 As needed Zofran and Phenergan prescribed . Pain due t o neoplastic disease [id number] 9102 G89.3 Right upper quadrant pain secondary to liver metastasis . Patient currently taking Tylenol. Discussed as needed oxycodone to limit Tylenol exposure. Anemia 949010106 D64.9 Right-side d colon mass concerning for malignancy . Will assess for any signs of iron deficiency . Most recent hemoglobin at 8.0. Concern for blood loss from colon mass. Patient reports dark stools. Adopted [id number] Z62.89 8 Patient is adopted and discussed hereditary gene panel. Patient does have family history of her son having bladder cancer. Will send [facility] hereditary panel. Antineopla stic chemotherapy regimen [id number] Z51.11 Week 1 5FU Leucovorin Vectibix on [...] 24, 2023. Cycle 6 of 5FU Leucovorin with Vectibix on September 21, 2023. Previous dose held secondary to conjunctiv itis.Cycle 7 of 5FU Leucovorin and Vectibix on October 05, 2023. Will hold Vectibix today due to irritation of membranes of the eyes bilaterall y.Cycle 8 of 5FU Leucovorin with Vectibix on October 19, 2023.Cycle 9 of 5FU Leucovorin with Vectibix on November 02, 2023.Cycle 10 of 5FU Leucovorin with Vectibix on November 23, 2023. Hypokalemia 16729929 E87 .6 Patient returns on April 29, 2023. Potassium is low at 2.9. Will send prescripti on for potassium 20 mEq daily. Will follow-up labs again next week. Loss of appetite [id number] 6 R63.0 Patient has had nausea and decreased appetite since her cancer diagnosis. She can not tolerate her nutritiona l drinks. She does take Phenergan with relief. She continues to lose weight. Will send prescripti on for Megace. Acute conjunctivitis [id number] H10.32 Patient returns on May 11, 2023. She has had erythema, conjuntiva inflammati on, discharged and matted left eye. She has been using warm compresses . Will send prescripti on for eye drops for conjunctiv itis.Will send in repeat prescripti on for eye drops. Diarrhea 88184080 R19.7 Diarrhea has resolved. Patient with recent C diff Deep venou s thrombosis [id number] I82.409 Patient developed right lower extremity pain and edema.Veno us duplex on May 28, 2023 with evidence of deep vein thrombosis . Started on Eliquis 5 mg 1 tab p.o. b.i.d.. Did not start with Eliquis starter pack due to recent bleeding. Patient had a DVT and a PE in 1990 after her hysterecto my. Anxiety 83344191 F41.9 Patient has had increased anxiety. She is tearful and crying during her visit today due to all of her health problems. She does not want to take an antidepres melina at this time. Discussed low-dose Ativan. Improvemen t in mood overall on visit from June 08, 2023. Mixed anxi ety and depressive disorder [id number] F41.8 Patient returns on November 23, 2023. Patient is struggling with anxiety and depression . She has had some recent deaths in the family. Patient is tearful during her visit today. She also has insomnia. She is taking Mirtazapin e 15 mg daily and lorazepam as needed. Offered referral to therapist but patient declines at this time. Will increase Mirtazapin e dose to 30 mg daily. [id number] Tomy King MD [facility] [address] [place] [address] 12/07/2023 09:01:54 12/07/2023 09:40:34 Malignant tumor of ascending colon [id number] C18.2 CT scan of the abdomen and [...] 8.2 hematocrit 29.0. MCV 67.9. Platelet count 003393. Normal cell differenti al. 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 Labs on June 02, 2023 with CEA at 21.9.Hemog lobin at 10.3 with normal iron studies.Pr evious CT scan on May 18, 2023 with 5.3 cm lesion in the liver right lobe. Decrease in size from previous imaging prior to starting chemothera py. Venous duplex on August 03, 2023 with extensive right lower extremity DVT. Will continue with Eliquis. Venous duplex on October 20, 2023 with no evidence of right lower extremity DVT. Clot resolution . Discontinu ed Eliquis. Started aspirin 81 mg p.o. daily. Labs on November 23, 2023 with CEA at 7.4. Continued decline in lab value. CT scan of the chest abdomen pelvis on November 05, 2023 with multiple low-densit y liver lesions that are unchanged from prior study in July 2023. No evidence of worsening disease. Stable hepatic metastasis . Patient returns on December 07, 2023. Patient continues with 5FU Leucovorin as well as Vectibix every 2 weeks. Metastatic malignant neoplasm to liver 50010688 C78.7 CT scan of the abdomen and [...] Findings concerning for metastatic colon cancer. Nausea 570437493 R11.0 As needed Zofran and Phenergan prescribed . Pain due t o neoplastic disease [id number] 9102 G89.3 Right upper quadrant pain secondary to liver metastasis . Patient currently taking Tylenol. Discussed as needed oxycodone to limit Tylenol exposure. Anemia 142613283 D64.9 Right-side d colon mass concerning for malignancy . Will assess for any signs of iron deficiency . Most recent hemoglobin at 8.0. Concern for blood loss from colon mass. Patient reports dark stools. Adopted [id number] Z62.89 8 Patient is adopted and discussed hereditary gene panel. Patient does have family history of her son having bladder cancer. Will send [facility] hereditary panel. Antineopla stic chemotherapy regimen [id number] Z51.11 Week 1 5FU Leucovorin Vectibix on [...] 24, 2023. Cycle 6 of 5FU Leucovorin with Vectibix on September 21, 2023. Previous dose held secondary to conjunctiv itis.Cycle 7 of 5FU Leucovorin and Vectibix on October 05, 2023. Will hold Vectibix today due to irritation of membranes of the eyes bilaterall y.Cycle 8 of 5FU Leucovorin with Vectibix on October 19, 2023.Cycle 9 of 5FU Leucovorin with Vectibix on November 02, 2023.Cycle 10 of 5FU Leucovorin with Vectibix on November 23, 2023.Cycle 11 of 5FU Leucovorin with Vectibix on December 07, 2023. Hypokalemia 15003750 E87 .6 Patient returns on April 29, 2023. Potassium is low at 2.9. Will send prescripti on for potassium 20 mEq daily. Will follow-up labs again next week. Deep venou s thrombosis 452539614 I82.409 Patient developed right lower extremity pain and edema.Veno us duplex on May 28, 2023 with evidence of deep vein thrombosis . Started on Eliquis 5 mg 1 tab p.o. b.i.d.. Did not start with Eliquis starter pack due to recent bleeding. Patient had a DVT and a PE in 1990 after her hysterecto my. Mixed anxi ety and depressive disorder 034149299 F41.8 Patient returns on November 23, 2023. Patient is struggling with anxiety and depression . She has had some recent deaths in the family. Patient is tearful during her visit today. She also has insomnia. She is taking Mirtazapin e 15 mg daily and lorazepam as needed. Offered referral to therapist but patient declines at this time. Will increase Mirtazapin e dose to 30 mg daily. Atopic conjunctivitis 23 5874442 H10.12 Patient with conjunctiv itis of the left eye. Holding Vectibix today on December 07, 2023. Continue with current therapy. Will follow up again in 2 weeks. [id number] Hanna Snider PA-C [facility] [address] [place] [address] 12/21/2023 09:48:25 12/21/2023 10:21:03 Malignant tumor of ascending colon [id number] C18.2 CT scan of the abdomen and [...] 8.2 hematocrit 29.0. MCV 67.9. Platelet count 049411. Normal cell differenti al. 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 Labs on June 02, 2023 with CEA at 21.9.Hemog lobin at 10.3 with normal iron studies.Pr evious CT scan on May 18, 2023 with 5.3 cm lesion in the liver right lobe. Decrease in size from previous imaging prior to starting chemothera py. Venous duplex on August 03, 2023 with extensive right lower extremity DVT. Will continue with Eliquis. Venous duplex on October 20, 2023 with no evidence of right lower extremity DVT. Clot resolution . Discontinu ed Eliquis. Started aspirin 81 mg p.o. daily. Labs on November 23, 2023 with CEA at 7.4. Continued decline in lab value. CT scan of the chest abdomen pelvis on November 05, 2023 with multiple low-densit y liver lesions that are unchanged from prior study in July 2023. No evidence of worsening disease. Stable hepatic metastasis . Patient returns on December 21, 2023. Patient continues with 5FU Leucovorin as well as Vectibix every 2 weeks. Conjunctiv itis of the left eye has improved. Will proceed with Vectibix today on December 21, 2023. Continue with current therapy. Will follow up again in 2 weeks. Metastatic malignant neoplasm to liver 29802511 C78.7 CT scan of the abdomen and [...] Findings concerning for metastatic colon cancer. Nausea 171421202 R11.0 As needed Zofran and Phenergan prescribed . Pain due t o neoplastic disease [id number] 9102 G89.3 Right upper quadrant pain secondary to liver metastasis . Patient currently taking Tylenol. Discussed as needed oxycodone to limit Tylenol exposure. Anemia 170690501 D64.9 Right-side d colon mass concerning for malignancy . Will assess for any signs of iron deficiency . Most recent hemoglobin at 8.0. Concern for blood loss from colon mass. Patient reports dark stools. Adopted [id number] Z62.89 8 Patient is adopted and discussed hereditary gene panel. Patient does have family history of her son having bladder cancer. Will send [facility] hereditary panel. Antineopla stic chemotherapy regimen 396932345 Z51.11 Week 1 5FU Leucovorin Vectibix on [...] 24, 2023. Cycle 6 of 5FU Leucovorin with Vectibix on September 21, 2023. Previous dose held secondary to conjunctiv itis.Cycle 7 of 5FU Leucovorin and Vectibix on October 05, 2023. Will hold Vectibix today due to irritation of membranes of the eyes bilaterall y.Cycle 8 of 5FU Leucovorin with Vectibix on October 19, 2023.Cycle 9 of 5FU Leucovorin with Vectibix on November 02, 2023.Cycle 10 of 5FU Leucovorin with Vectibix on November 23, 2023.Cycle 11 of 5FU Leucovorin with Vectibix on December 07, 2023.Cycle 12 of 5FU Leucovorin with Vectibix on November 21, 2023. Hypokalemia 16064312 E87 .6 Patient returns on April 29, 2023. Potassium is low at 2.9. Will send prescripti on for potassium 20 mEq daily. Will follow-up labs again next week. Deep venou s thrombosis 151668593 I82.409 Patient developed right lower extremity pain and edema.Veno us duplex on May 28, 2023 with evidence of deep vein thrombosis . Started on Eliquis 5 mg 1 tab p.o. b.i.d.. Did not start with Eliquis starter pack due to recent bleeding. Patient had a DVT and a PE in 1990 after her hysterecto my. Mixed anxi ety and depressive disorder 288162805 F41.8 Patient returns on November 23, 2023. Patient is struggling with anxiety and depression . She has had some recent deaths in the family. Patient is tearful during her visit today. She also has insomnia. She is taking Mirtazapin e 15 mg daily and lorazepam as needed. Offered referral to therapist but patient declines at this time. Will increase Mirtazapin e dose to 30 mg daily. Atopic conjunctivitis 23 4920280 H10.12 Patient with conjunctiv itis of the left eye. Held Vectibix on December 07, 2023. Continue with current therapy. Will follow up again in 2 weeks. [id number] Hanna Snider PA-C [facility] [address] [place] [address] 01/04/2024 09:55:59 01/04/2024 10:32:04 Malignant tumor of ascending colon 104430419 C18.2 CT scan of the abdomen and [...] 8.2 hematocrit 29.0. MCV 67.9. Platelet count 570857. Normal cell differenti al. 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 Labs on June 02, 2023 with CEA at 21.9.Hemog lobin at 10.3 with normal iron studies.Pr evious CT scan on May 18, 2023 with 5.3 cm lesion in the liver right lobe. Decrease in size from previous imaging prior to starting chemothera py. Venous duplex on August 03, 2023 with extensive right lower extremity DVT. Will continue with Eliquis. Venous duplex on October 20, 2023 with no evidence of right lower extremity DVT. Clot resolution . Discontinu ed Eliquis. Started aspirin 81 mg p.o. daily. Labs on November 23, 2023 with CEA at 7.4. Continued decline in lab value. CT scan of the chest abdomen pelvis on November 05, 2023 with multiple low-densit y liver lesions that are unchanged from prior study in July 2023. No evidence of worsening disease. Stable hepatic metastasis . Patient returns on January 04, 2024. Patient continues with 5FU Leucovorin as well as Vectibix every 2 weeks. She has conjunctiv itis of the left eye. Will hold Vectibix today on January 04, 2024. Continue with current therapy. Patient mentions she has had more mid back pain lately. Will follow up CEA today. Will order imaging if there is an increased in CEA. If not, will plan follow-up imaging around January 2024. Metastatic malignant neoplasm to liver 86803374 C78.7 CT scan of the abdomen and [...] Findings concerning for metastatic colon cancer. Nausea 831513608 R11.0 As needed Zofran and Phenergan prescribed . Pain due t o neoplastic disease [id number] 9102 G89.3 Right upper quadrant pain secondary to liver metastasis . Patient currently taking Tylenol. Discussed as needed oxycodone to limit Tylenol exposure. Anemia 758947807 D64.9 Right-side d colon mass concerning for malignancy . Will assess for any signs of iron deficiency . Most recent hemoglobin at 8.0. Concern for blood loss from colon mass. Patient reports dark stools. Adopted [id number] Z62.89 8 Patient is adopted and discussed hereditary gene panel. Patient does have family history of her son having bladder cancer. Will send [facility] hereditary panel. Antineopla stic chemotherapy regimen 075296982 Z51.11 Week 1 5FU Leucovorin Vectibix on [...] 24, 2023. Cycle 6 of 5FU Leucovorin with Vectibix on September 21, 2023. Previous dose held secondary to conjunctiv itis.Cycle 7 of 5FU Leucovorin and Vectibix on October 05, 2023. Will hold Vectibix today due to irritation of membranes of the eyes bilaterall y.Cycle 8 of 5FU Leucovorin with Vectibix on October 19, 2023.Cycle 9 of 5FU Leucovorin with Vectibix on November 02, 2023.Cycle 10 of 5FU Leucovorin with Vectibix on November 23, 2023.Cycle 11 of 5FU Leucovorin with Vectibix on December 07, 2023.Cycle 12 of 5FU Leucovorin with Vectibix on November 21, 2023.Cycle 12 of 5FU Leucovorin without Vectibix on January 04, 2024. Hypokalemia 27553997 E87 .6 Patient returns on April 29, 2023. Potassium is low at 2.9. Will send prescripti on for potassium 20 mEq daily. Will follow-up labs again next week. Deep venou s thrombosis 675812174 I82.409 Patient developed right lower extremity pain and edema.Veno us duplex on May 28, 2023 with evidence of deep vein thrombosis . Started on Eliquis 5 mg 1 tab p.o. b.i.d.. Did not start with Eliquis starter pack due to recent bleeding. Patient had a DVT and a PE in 1990 after her hysterecto my. Mixed anxi ety and depressive disorder 481554867 F41.8 Patient returns on November 23, 2023. Patient is struggling with anxiety and depression . She has had some recent deaths in the family. Patient is tearful during her visit today. She also has insomnia. She is taking Mirtazapin e 15 mg daily and lorazepam as needed. Offered referral to therapist but patient declines at this time. Will increase Mirtazapin e dose to 30 mg daily. Atopic conjunctivitis 23 0111127 H10.12 Patient with conjunctiv itis of the left eye. Held Vectibix on December 07, 2023. Continue with current therapy. Will follow up again in 2 weeks. Iron defic iency anemia 73900699 D50.9 [id number] Hanna Snider PA-C [facility] [address] [place] [address] 01/25/2024 09:42:09 01/25/2024 10:49:14 Malignant tumor of ascending colon 199315203 C18.2 CT scan of the abdomen and [...] 8.2 hematocrit 29.0. MCV 67.9. Platelet count 022816. Normal cell differenti al. 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 Labs on June 02, 2023 with CEA at 21.9.Hemog lobin at 10.3 with normal iron studies.Pr evious CT scan on May 18, 2023 with 5.3 cm lesion in the liver right lobe. Decrease in size from previous imaging prior to starting chemothera py. Venous duplex on August 03, 2023 with extensive right lower extremity DVT. Will continue with Eliquis. Venous duplex on October 20, 2023 with no evidence of right lower extremity DVT. Clot resolution . Discontinu ed Eliquis. Started aspirin 81 mg p.o. daily. Labs on November 23, 2023 with CEA at 7.4. Continued decline in lab value. CT scan of the chest abdomen pelvis on November 05, 2023 with multiple low-densit y liver lesions that are unchanged from prior study in July 2023. No evidence of worsening disease. Stable hepatic metastasis . Patient returns on January 25, 2024. Patient continues with 5FU Leucovorin as well as Vectibix every 2 weeks. Conjunctiv itis has resolved. She will receive Vectibix today on January 25, 2024. Continue with current therapy. Will plan follow-up imaging around January 2024. Will schedule. Metastatic malignant neoplasm to liver 07607179 C78.7 CT scan of the abdomen and [...] Findings concerning for metastatic colon cancer. Nausea 259965868 R11.0 As needed Zofran and Phenergan prescribed . Pain due t o neoplastic disease 3998753048 9102 G89.3 Right upper quadrant pain secondary to liver metastasis . Patient currently taking Tylenol. Discussed as needed oxycodone to limit Tylenol exposure. Anemia 907018178 D64.9 Right-side d colon mass concerning for malignancy . Will assess for any signs of iron deficiency . Most recent hemoglobin at 8.0. Concern for blood loss from colon mass. Patient reports dark stools. Adopted [id number] Z62.89 8 Patient is adopted and discussed hereditary gene panel. Patient does have family history of her son having bladder cancer. Will send [facility] hereditary panel. Antineopla stic chemotherapy regimen 670124714 Z51.11 Week 1 5FU Leucovorin Vectibix on [...] 24, 2023. Cycle 6 of 5FU Leucovorin with Vectibix on September 21, 2023. Previous dose held secondary to conjunctiv itis.Cycle 7 of 5FU Leucovorin and Vectibix on October 05, 2023. Will hold Vectibix today due to irritation of membranes of the eyes bilaterall y.Cycle 8 of 5FU Leucovorin with Vectibix on October 19, 2023.Cycle 9 of 5FU Leucovorin with Vectibix on November 02, 2023.Cycle 10 of 5FU Leucovorin with Vectibix on November 23, 2023.Cycle 11 of 5FU Leucovorin with Vectibix on December 07, 2023.Cycle 12 of 5FU Leucovorin with Vectibix on November 21, 2023.Cycle 12 of 5FU Leucovorin without Vectibix on January 04, 2024.Cycle 13 of 5FU Leucovorin with Vectibix on January 25, 2024. Hypokalemia 62106095 E87 .6 Patient returns on April 29, 2023. Potassium is low at 2.9. Will send prescripti on for potassium 20 mEq daily. Will follow-up labs again next week. Deep venou s thrombosis 537848296 I82.409 Patient developed right lower extremity pain and edema.Veno us duplex on May 28, 2023 with evidence of deep vein thrombosis . Started on Eliquis 5 mg 1 tab p.o. b.i.d.. Did not start with Eliquis starter pack due to recent bleeding. Patient had a DVT and a PE in 1990 after her hysterecto my. Mixed anxi ety and depressive disorder 196815725 F41.8 Patient returns on November 23, 2023. Patient is struggling with anxiety and depression . She has had some recent deaths in the family. Patient is tearful during her visit today. She also has insomnia. She is taking Mirtazapin e 15 mg daily and lorazepam as needed. Offered referral to therapist but patient declines at this time. Will increase Mirtazapin e dose to 30 mg daily. Atopic conjunctivitis 23 3185544 H10.12 Patient with conjunctiv itis of the left eye. Held Vectibix on December 07, 2023. Continue with current therapy. Will follow up again in 2 weeks. Iron defic iency anemia 58573124 D50.9 [id number] Hanna Snider PA-C [facility] [address] [facility] [address] [place] [address] 02/08/2024 09:30:04 02/08/2024 10:49:29 Malignant tumor of ascending colon 552566148 C18.2 CT scan of the abdomen and [...] 8.2 hematocrit 29.0. MCV 67.9. Platelet count 468122. Normal cell differenti al. 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 Labs on June 02, 2023 with CEA at 21.9.Hemog lobin at 10.3 with normal iron studies.Pr evious CT scan on May 18, 2023 with 5.3 cm lesion in the liver right lobe. Decrease in size from previous imaging prior to starting chemothera py. Venous duplex on August 03, 2023 with extensive right lower extremity DVT. Will continue with Eliquis. Venous duplex on October 20, 2023 with no evidence of right lower extremity DVT. Clot resolution . Discontinu ed Eliquis. Started aspirin 81 mg p.o. daily. Labs on November 23, 2023 with CEA at 7.4. Continued decline in lab value. CT scan of the chest abdomen pelvis on November 05, 2023 with multiple low-densit y liver lesions that are unchanged from prior study in July 2023. No evidence of worsening disease. Stable hepatic metastasis . Patient returns on February 08, 2024. Patient continues with 5FU Leucovorin as well as Vectibix every 2 weeks. She received Vectibix with her last treatment. She does have mild conjunctiv itis She received Vectibix. She has been receiving Vectibix every other time. Will hold Vectibix today on February 08, 2024. Continue with current therapy. Will order follow-up imaging. Metastatic malignant neoplasm to liver 83192462 C78.7 CT scan of the abdomen and [...] Findings concerning for metastatic colon cancer. Nausea 366340841 R11.0 As needed Zofran and Phenergan prescribed . Pain due t o neoplastic disease 4430755398 9102 G89.3 Right upper quadrant pain secondary to liver metastasis . Patient currently taking Tylenol. Discussed as needed oxycodone to limit Tylenol exposure. Anemia 022862744 D64.9 Right-side d colon mass concerning for malignancy . Will assess for any signs of iron deficiency . Most recent hemoglobin at 8.0. Concern for blood loss from colon mass. Patient reports dark stools. Adopted [id number] Z62.89 8 Patient is adopted and discussed hereditary gene panel. Patient does have family history of her son having bladder cancer. Will send [facility] hereditary panel. Antineopla stic chemotherapy regimen 677528952 Z51.11 Week 1 5FU Leucovorin Vectibix on [...] 24, 2023. Cycle 6 of 5FU Leucovorin with Vectibix on September 21, 2023. Previous dose held secondary to conjunctiv itis.Cycle 7 of 5FU Leucovorin and Vectibix on October 05, 2023. Will hold Vectibix today due to irritation of membranes of the eyes bilaterall y.Cycle 8 of 5FU Leucovorin with Vectibix on October 19, 2023.Cycle 9 of 5FU Leucovorin with Vectibix on November 02, 2023.Cycle 10 of 5FU Leucovorin with Vectibix on November 23, 2023.Cycle 11 of 5FU Leucovorin with Vectibix on December 07, 2023.Cycle 12 of 5FU Leucovorin with Vectibix on November 21, 2023.Cycle 13 of 5FU Leucovorin with Vectibix on January 25, 2024.Cycle 14 of 5FU Leucovorin without Vectibix on February 08, 2024. Hypokalemia [id number] E87 .6 Patient returns on April 29, 2023. Potassium is low at 2.9. Will send prescripti on for potassium 20 mEq daily. Will follow-up labs again next week. Deep venou s thrombosis [id number] I82.409 Patient developed right lower extremity pain and edema.Veno us duplex on May 28, 2023 with evidence of deep vein thrombosis . Started on Eliquis 5 mg 1 tab p.o. b.i.d.. Did not start with Eliquis starter pack due to recent bleeding. Patient had a DVT and a PE in 1990 after her hysterecto my. Mixed anxi ety and depressive disorder [id number] F41.8 Patient returns on November 23, 2023. Patient is struggling with anxiety and depression . She has had some recent deaths in the family. Patient is tearful during her visit today. She also has insomnia. She is taking Mirtazapin e 15 mg daily and lorazepam as needed. Offered referral to therapist but patient declines at this time. Will increase Mirtazapin e dose to 30 mg daily. Atopic conjunctivitis 23 7536112 H10.12 Patient with conjunctiv itis of the left eye. Held Vectibix on December 07, 2023. Continue with current therapy. Will follow up again in 2 weeks. Iron defic iency anemia 87184443 D50.9 Will follow up labs Insomnia [id number] G47.0 0 Patient returns on February 08, 2024. She has had difficulty sleeping for most of her life. She has tried multiple medication s without relief. She is tried Mirtazapin e and lorazepam without improvemen t of insomnia. Discussed trying trazodone instead. Will send prescripti on. Will send prescripti on for Requip for restless legs. Restless legs 59180271 G 25.81 Patient returns on February 08, 2024. She has had difficulty sleeping for most of her life. She has tried multiple medication s without relief. She is tried Mirtazapin e and lorazepam without improvemen t of insomnia. Discussed trying trazodone instead. Will send prescripti on. Will send prescripti on for Requip for restless legs. [id number] Hanna Snider PA-C [facility] [address] [place] [address] 02/22/2024 10:08:45 02/22/2024 10:41:02 Malignant tumor of ascending colon 042477519 C18.2 CT scan of the abdomen and [...] 8.2 hematocrit 29.0. MCV 67.9. Platelet count 264148. Normal cell differenti al. 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 Labs on June 02, 2023 with CEA at 21.9.Hemog lobin at 10.3 with normal iron studies.Pr evious CT scan on May 18, 2023 with 5.3 cm lesion in the liver right lobe. Decrease in size from previous imaging prior to starting chemothera py. Venous duplex on August 03, 2023 with extensive right lower extremity DVT. Will continue with Eliquis. Venous duplex on October 20, 2023 with no evidence of right lower extremity DVT. Clot resolution . Discontinu ed Eliquis. Started aspirin 81 mg p.o. daily. Labs on November 23, 2023 with CEA at 7.4. Continued decline in lab value. CT scan of the chest abdomen pelvis on November 05, 2023 with multiple low-densit y liver lesions that are unchanged from prior study in July 2023. No evidence of worsening disease. Stable hepatic metastasis . Patient returns on February 22, 2024. Patient has paronychia of the left ring finger after pulling a piece of loose skin yesterday. No abscess or drainage present. Discussed topical antibiotic s plus warm water soaks. Will send prescripti on. Discussed if does not improve or worsens will do oral antibiotic s. Will follow-up. Patient continues with 5FU Leucovorin as well as Vectibix every 2 weeks. She has been receiving Vectibix every other time to conjunctiv itis. Eyes are clear today so patient will receive. Patient will receive Vectibix today on February 22, 2024. Continue with current therapy. Stable imaging on February 15, 2024. Metastatic malignant neoplasm to liver [id number] C78.7 CT scan of the abdomen and [...] Findings concerning for metastatic colon cancer. Nausea [id number] R11.0 As needed Zofran and Phenergan prescribed . Pain due t o neoplastic disease [id number] 9102 G89.3 Right upper quadrant pain secondary to liver metastasis . Patient currently taking Tylenol. Discussed as needed oxycodone to limit Tylenol exposure. Anemia 280639571 D64.9 Right-side d colon mass concerning for malignancy . Will assess for any signs of iron deficiency . Most recent hemoglobin at 8.0. Concern for blood loss from colon mass. Patient reports dark stools. Adopted [id number] Z62.89 8 Patient is adopted and discussed hereditary gene panel. Patient does have family history of her son having bladder cancer. Will send [facility] hereditary panel. Antineopla stic chemotherapy regimen 436076951 Z51.11 Week 1 5FU Leucovorin Vectibix on [...] 24, 2023. Cycle 6 of 5FU Leucovorin with Vectibix on September 21, 2023. Previous dose held secondary to conjunctiv itis.Cycle 7 of 5FU Leucovorin and Vectibix on October 05, 2023. Will hold Vectibix today due to irritation of membranes of the eyes bilaterall y.Cycle 8 of 5FU Leucovorin with Vectibix on October 19, 2023.Cycle 9 of 5FU Leucovorin with Vectibix on November 02, 2023.Cycle 10 of 5FU Leucovorin with Vectibix on November 23, 2023.Cycle 11 of 5FU Leucovorin with Vectibix on December 07, 2023.Cycle 12 of 5FU Leucovorin with Vectibix on November 21, 2023.Cycle 13 of 5FU Leucovorin with Vectibix on January 25, 2024.Cycle 14 of 5FU Leucovorin without Vectibix on February 08, 2024.Cycle 15 of 5FU Leucovorin with Vectibix on February 22, 2024. Hypokalemia 65712693 E87 .6 Patient returns on April 29, 2023. Potassium is low at 2.9. Will send prescripti on for potassium 20 mEq daily. Will follow-up labs again next week. Deep venou s thrombosis 637186835 I82.409 Patient developed right lower extremity pain and edema.Veno us duplex on May 28, 2023 with evidence of deep vein thrombosis . Started on Eliquis 5 mg 1 tab p.o. b.i.d.. Did not start with Eliquis starter pack due to recent bleeding. Patient had a DVT and a PE in 1990 after her hysterecto my. Mixed anxi ety and depressive disorder 528934785 F41.8 Patient returns on November 23, 2023. Patient is struggling with anxiety and depression . She has had some recent deaths in the family. Patient is tearful during her visit today. She also has insomnia. She is taking Mirtazapin e 15 mg daily and lorazepam as needed. Offered referral to therapist but patient declines at this time. Will increase Mirtazapin e dose to 30 mg daily. Atopic conjunctivitis 6896695 H10.12 Patient with conjunctiv itis of the left eye. Held Vectibix on December 07, 2023. Continue with current therapy. Will follow up again in 2 weeks. Iron defic iency anemia 98570750 D50.9 Will follow up labs Insomnia 046060095 G47.0 0 Patient returns on February 08, 2024. She has had difficulty sleeping for most of her life. She has tried multiple medication s without relief. She is tried Mirtazapin e and lorazepam without improvemen t of insomnia. Discussed trying trazodone instead. Will send prescripti on. Will send prescripti on for Requip for restless legs. Restless legs 42812375 G 25.81 Patient returns on February 08, 2024. She has had difficulty sleeping for most of her life. She has tried multiple medication s without relief. She is tried Mirtazapin e and lorazepam without improvemen t of insomnia. Discussed trying trazodone instead. Will send prescripti on. Will send prescripti on for Requip for restless legs. Infection of skin and/or subcutaneous tissue 83716946 L08.9 Patient returns on February 22, 2024. Patient has paronychia of the left ring finger after pulling a piece of loose skin yesterday. No abscess or drainage present. Discussed topical antibiotic s plus warm water soaks. Will send prescripti on. Discussed if does not improve or worsens will do oral antibiotic s. Will follow-up. [id number] Hanna Snider PA-C [facility] [address] [place] [address] 03/07/2024 10:12:33 03/07/2024 11:14:04 Malignant tumor of ascending colon [id number] C18.2 CT scan of the abdomen and [...] 8.2 hematocrit 29.0. MCV 67.9. Platelet count 575507. Normal cell differenti al. 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 Labs on June 02, 2023 with CEA at 21.9.Hemog lobin at 10.3 with normal iron studies.Pr evious CT scan on May 18, 2023 with 5.3 cm lesion in the liver right lobe. Decrease in size from previous imaging prior to starting chemothera py. Venous duplex on August 03, 2023 with extensive right lower extremity DVT. Will continue with Eliquis. Venous duplex on October 20, 2023 with no evidence of right lower extremity DVT. Clot resolution . Discontinu ed Eliquis. Started aspirin 81 mg p.o. daily. Labs on November 23, 2023 with CEA at 7.4. Continued decline in lab value. CT scan of the chest abdomen pelvis on November 05, 2023 with multiple low-densit y liver lesions that are unchanged from prior study in July 2023. No evidence of worsening disease. Stable hepatic metastasis . Patient returns on March 07, 2024. Patient is doing well. Patient continues with 5FU Leucovorin as well as Vectibix every 2 weeks. She has been receiving Vectibix every other time to conjunctiv itis. Eyes are clear today so patient will receive. Patient will receive Vectibix today on March 07, 2024. Continue with current therapy. Stable imaging on February 15, 2024. Metastatic malignant neoplasm to liver 16142452 C78.7 CT scan of the abdomen and [...] Findings concerning for metastatic colon cancer. Nausea 601177756 R11.0 As needed Zofran and Phenergan prescribed . Pain due t o neoplastic disease [id number] 9102 G89.3 Right upper quadrant pain secondary to liver metastasis . Patient currently taking Tylenol. Discussed as needed oxycodone to limit Tylenol exposure. Anemia 881357302 D64.9 Right-side d colon mass concerning for malignancy . Will assess for any signs of iron deficiency . Most recent hemoglobin at 8.0. Concern for blood loss from colon mass. Patient reports dark stools. Adopted 305782382 Z62.89 8 Patient is adopted and discussed hereditary gene panel. Patient does have family history of her son having bladder cancer. Will send [facility] hereditary panel. Antineopla stic chemotherapy regimen 142241943 Z51.11 Week 1 5FU Leucovorin Vectibix on [...] 24, 2023. Cycle 6 of 5FU Leucovorin with Vectibix on September 21, 2023. Previous dose held secondary to conjunctiv itis.Cycle 7 of 5FU Leucovorin and Vectibix on October 05, 2023. Will hold Vectibix today due to irritation of membranes of the eyes bilaterall y.Cycle 8 of 5FU Leucovorin with Vectibix on October 19, 2023.Cycle 9 of 5FU Leucovorin with Vectibix on November 02, 2023.Cycle 10 of 5FU Leucovorin with Vectibix on November 23, 2023.Cycle 11 of 5FU Leucovorin with Vectibix on December 07, 2023.Cycle 12 of 5FU Leucovorin with Vectibix on November 21, 2023.Cycle 13 of 5FU Leucovorin with Vectibix on January 25, 2024.Cycle 14 of 5FU Leucovorin without Vectibix on February 08, 2024.Cycle 15 of 5FU Leucovorin with Vectibix on February 22, 2024.Cycle 16 of 5FU Leucovorin with Vectibix on March 07, 2024. Hypokalemia 43411289 E87 .6 Patient returns on April 29, 2023. Potassium is low at 2.9. Will send prescripti on for potassium 20 mEq daily. Will follow-up labs again next week. Deep venou s thrombosis 323024440 I82.409 Patient developed right lower extremity pain and edema.Veno us duplex on May 28, 2023 with evidence of deep vein thrombosis . Started on Eliquis 5 mg 1 tab p.o. b.i.d.. Did not start with Eliquis starter pack due to recent bleeding. Patient had a DVT and a PE in 1990 after her hysterecto my. Mixed anxi ety and depressive disorder 319421961 F41.8 Patient returns on November 23, 2023. Patient is struggling with anxiety and depression . She has had some recent deaths in the family. Patient is tearful during her visit today. She also has insomnia. She is taking Mirtazapin e 15 mg daily and lorazepam as needed. Offered referral to therapist but patient declines at this time. Will increase Mirtazapin e dose to 30 mg daily. Atopic conjunctivitis 23 1926675 H10.12 Patient with conjunctiv itis of the left eye. Held Vectibix on December 07, 2023. Continue with current therapy. Will follow up again in 2 weeks. Iron defic iency anemia 97699192 D50.9 Will follow up labs Insomnia 834749963 G47.0 0 Patient returns on February 08, 2024. She has had difficulty sleeping for most of her life. She has tried multiple medication s without relief. She is tried Mirtazapin e and lorazepam without improvemen t of insomnia. Discussed trying trazodone instead. Will send prescripti on. Will send prescripti on for Requip for restless legs. Restless legs 52386004 G 25.81 Patient returns on February 08, 2024. She has had difficulty sleeping for most of her life. She has tried multiple medication s without relief. She is tried Mirtazapin e and lorazepam without improvemen t of insomnia. Discussed trying trazodone instead. Will send prescripti on. Will send prescripti on for Requip for restless legs. Infection of skin and/or subcutaneous tissue 81177800 L08.9 Patient returns on February 22, 2024. Patient has paronychia of the left ring finger after pulling a piece of loose skin yesterday. No abscess or drainage present. Discussed topical antibiotic s plus warm water soaks. Will send prescripti on. Discussed if does not improve or worsens will do oral antibiotic s. Will follow-up. This has resolved. [id number] Hanna Snider PA-C [facility] [address] [place] [address] 03/21/2024 09:44:36 03/21/2024 10:52:41 Malignant tumor of ascending colon 913632335 C18.2 CT scan of the abdomen and [...] 8.2 hematocrit 29.0. MCV 67.9. Platelet count 520727. Normal cell differenti al. 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 Labs on June 02, 2023 with CEA at 21.9.Hemog lobin at 10.3 with normal iron studies.Pr evious CT scan on May 18, 2023 with 5.3 cm lesion in the liver right lobe. Decrease in size from previous imaging prior to starting chemothera py. Venous duplex on August 03, 2023 with extensive right lower extremity DVT. Will continue with Eliquis. Venous duplex on October 20, 2023 with no evidence of right lower extremity DVT. Clot resolution . Discontinu ed Eliquis. Started aspirin 81 mg p.o. daily. Labs on November 23, 2023 with CEA at 7.4. Continued decline in lab value. CT scan of the chest abdomen pelvis on November 05, 2023 with multiple low-densit y liver lesions that are unchanged from prior study in July 2023. No evidence of worsening disease. Stable hepatic metastasis . Patient returns on March 21, 2024. Patient is doing well. She has occasional left lower quadrant abdominal pain but this is relieved with pain medication . She denies any additional symptoms. Discussed if this continues will order imaging. Stable imaging on February 15, 2024. Patient continues with 5FU Leucovorin as well as Vectibix every 2 weeks. She has been receiving Vectibix every other time to conjunctiv itis. Eyes are clear today so patient will receive. Patient will receive Vectibix today on March 21, 2024. Continue with current therapy. Metastatic malignant neoplasm to liver 86767656 C78.7 CT scan of the abdomen and [...] Findings concerning for metastatic colon cancer. Nausea 439875722 R11.0 As needed Zofran and Phenergan prescribed . Pain due t o neoplastic disease [id number] 9102 G89.3 Right upper quadrant pain secondary to liver metastasis . Patient currently taking Tylenol. Discussed as needed oxycodone to limit Tylenol exposure. Anemia 282782671 D64.9 Right-side d colon mass concerning for malignancy . Will assess for any signs of iron deficiency . Most recent hemoglobin at 8.0. Concern for blood loss from colon mass. Patient reports dark stools. Adopted 265123778 Z62.89 8 Patient is adopted and discussed hereditary gene panel. Patient does have family history of her son having bladder cancer. Will send [facility] hereditary panel. Antineopla stic chemotherapy regimen 859434254 Z51.11 Week 1 5FU Leucovorin Vectibix on [...] 24, 2023. Cycle 6 of 5FU Leucovorin with Vectibix on September 21, 2023. Previous dose held secondary to conjunctiv itis.Cycle 7 of 5FU Leucovorin and Vectibix on October 05, 2023. Will hold Vectibix today due to irritation of membranes of the eyes bilaterall y.Cycle 8 of 5FU Leucovorin with Vectibix on October 19, 2023.Cycle 9 of 5FU Leucovorin with Vectibix on November 02, 2023.Cycle 10 of 5FU Leucovorin with Vectibix on November 23, 2023.Cycle 11 of 5FU Leucovorin with Vectibix on December 07, 2023.Cycle 12 of 5FU Leucovorin with Vectibix on November 21, 2023.Cycle 13 of 5FU Leucovorin with Vectibix on January 25, 2024.Cycle 14 of 5FU Leucovorin without Vectibix on February 08, 2024.Cycle 15 of 5FU Leucovorin with Vectibix on February 22, 2024.Cycle 16 of 5FU Leucovorin with Vectibix on March 07, 2024.Cycle 17 of 5FU Leucovorin with Vectibix on March 21, 2024. Hypokalemia 76995111 E87 .6 Patient returns on April 29, 2023. Potassium is low at 2.9. Will send prescripti on for potassium 20 mEq daily. Will follow-up labs again next week. Deep venou s thrombosis 338681814 I82.409 Patient developed right lower extremity pain and edema.Veno us duplex on May 28, 2023 with evidence of deep vein thrombosis . Started on Eliquis 5 mg 1 tab p.o. b.i.d.. Did not start with Eliquis starter pack due to recent bleeding. Patient had a DVT and a PE in 1990 after her hysterecto my. Mixed anxi ety and depressive disorder 051110369 F41.8 Patient returns on November 23, 2023. Patient is struggling with anxiety and depression . She has had some recent deaths in the family. Patient is tearful during her visit today. She also has insomnia. She is taking Mirtazapin e 15 mg daily and lorazepam as needed. Offered referral to therapist but patient declines at this time. Will increase Mirtazapin e dose to 30 mg daily. Atopic conjunctivitis 23 6563219 H10.12 Patient with conjunctiv itis of the left eye. Held Vectibix on December 07, 2023. Continue with current therapy. Will follow up again in 2 weeks. Iron defic iency anemia 20776958 D50.9 Will follow up labs Insomnia 676678089 G47.0 0 Patient returns on February 08, 2024. She has had difficulty sleeping for most of her life. She has tried multiple medication s without relief. She is tried Mirtazapin e and lorazepam without improvemen t of insomnia. Discussed trying trazodone instead. Will send prescripti on. Will send prescripti on for Requip for restless legs. Restless legs 50931781 G 25.81 Patient returns on February 08, 2024. She has had difficulty sleeping for most of her life. She has tried multiple medication s without relief. She is tried Mirtazapin e and lorazepam without improvemen t of insomnia. Discussed trying trazodone instead. Prescripti on sent for Requip for restless legs. [id number] Hanna Snider PA-C [facility] [address] [place] [address] 04/04/2024 09:54:49 04/04/2024 10:42:05 Malignant tumor of ascending colon 736003632 C18.2 CT scan of the abdomen and [...] 8.2 hematocrit 29.0. MCV 67.9. Platelet count 968024. Normal cell differenti al. 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 Labs on June 02, 2023 with CEA at 21.9.Hemog lobin at 10.3 with normal iron studies.Pr evious CT scan on May 18, 2023 with 5.3 cm lesion in the liver right lobe. Decrease in size from previous imaging prior to starting chemothera py. Venous duplex on August 03, 2023 with extensive right lower extremity DVT. Will continue with Eliquis. Venous duplex on October 20, 2023 with no evidence of right lower extremity DVT. Clot resolution . Discontinu ed Eliquis. Started aspirin 81 mg p.o. daily. Labs on November 23, 2023 with CEA at 7.4. Continued decline in lab value. CT scan of the chest abdomen pelvis on November 05, 2023 with multiple low-densit y liver lesions that are unchanged from prior study in July 2023. No evidence of worsening disease. Stable hepatic metastasis . Patient returns on April 04, 2024. Patient is tearful and crying during her visit today. She states her son has been diagnosed with bladder cancer. Patient with anxiety and depression . Discussed antidepres melina. Patient agreeable Will send prescripti on for Cymbalta. Patient has candidiasi s under her breasts and on her upper abdomen. She has been using nystatin cream without relief. Will send prescripti on for nystatin powder. Will also send prescripti on for fluconazol e. She has felt more fatigued. Will follow up labs today. Stable imaging on February 15, 2024. Patient continues with 5FU Leucovorin as well as Vectibix every 2 weeks. She has been receiving Vectibix every other time to conjunctiv itis. Eyes are inflamed today so patient will not receive Vectibix today on April 04, 2024. Continue with current therapy. Metastatic malignant neoplasm to liver 65463647 C78.7 CT scan of the abdomen and [...] Findings concerning for metastatic colon cancer. Nausea 847483475 R11.0 As needed Zofran and Phenergan prescribed . Pain due t o neoplastic disease [id number] 9102 G89.3 Right upper quadrant pain secondary to liver metastasis . Patient currently taking Tylenol. Discussed as needed oxycodone to limit Tylenol exposure. Anemia 909392378 D64.9 Right-side d colon mass concerning for malignancy . Will assess for any signs of iron deficiency . Most recent hemoglobin at 8.0. Concern for blood loss from colon mass. Patient reports dark stools. Adopted 368560293 Z62.89 8 Patient is adopted and discussed hereditary gene panel. Patient does have family history of her son having bladder cancer. Will send [facility] hereditary panel. Antineopla stic chemotherapy regimen 836304356 Z51.11 Week 1 5FU Leucovorin Vectibix on [...] 24, 2023. Cycle 6 of 5FU Leucovorin with Vectibix on September 21, 2023. Previous dose held secondary to conjunctiv itis.Cycle 7 of 5FU Leucovorin and Vectibix on October 05, 2023. Will hold Vectibix today due to irritation of membranes of the eyes bilaterall y.Cycle 8 of 5FU Leucovorin with Vectibix on October 19, 2023.Cycle 9 of 5FU Leucovorin with Vectibix on November 02, 2023.Cycle 10 of 5FU Leucovorin with Vectibix on November 23, 2023.Cycle 11 of 5FU Leucovorin with Vectibix on December 07, 2023.Cycle 12 of 5FU Leucovorin with Vectibix on November 21, 2023.Cycle 13 of 5FU Leucovorin with Vectibix on January 25, 2024.Cycle 14 of 5FU Leucovorin without Vectibix on February 08, 2024.Cycle 15 of 5FU Leucovorin with Vectibix on February 22, 2024.Cycle 16 of 5FU Leucovorin with Vectibix on March 07, 2024.Cycle 17 of 5FU Leucovorin with Vectibix on March 21, 2024.Cycle 18 of 5FU Leucovorin without Vectibix on April 04, 2024. Hypokalemia 74091886 E87 .6 Patient returns on April 29, 2023. Potassium is low at 2.9. Will send prescripti on for potassium 20 mEq daily. Will follow-up labs again next week. Deep venou s thrombosis 150904753 I82.409 Patient developed right lower extremity pain and edema.Veno us duplex on May 28, 2023 with evidence of deep vein thrombosis . Started on Eliquis 5 mg 1 tab p.o. b.i.d.. Did not start with Eliquis starter pack due to recent bleeding. Patient had a DVT and a PE in 1990 after her hysterecto my. Mixed anxi ety and depressive disorder 167576249 F41.8 Patient returns on November 23, 2023. [...] prescripti on for Cymbalta. Atopic conjunctivitis 23 5569603 H10.12 Patient with conjunctiv itis of the left eye. Held Vectibix on December 07, 2023. Continue with current therapy. Will follow up again in 2 weeks. Iron defic iency anemia 43591365 D50.9 Will follow up labs Insomnia 634105366 G47.0 0 Patient returns on February 08, 2024. She has had difficulty sleeping for most of her life. She has tried multiple medication s without relief. She is tried Mirtazapin e and lorazepam without improvemen t of insomnia. Discussed trying trazodone instead. Will send prescripti on. Will send prescripti on for Requip for restless legs. Restless legs 18686942 G 25.81 Patient returns on February 08, 2024. She has had difficulty sleeping for most of her life. She has tried multiple medication s without relief. She is tried Mirtazapin e and lorazepam without improvemen t of insomnia. Discussed trying trazodone instead. Prescripti on sent for Requip for restless legs. Candidiasis of skin 4988 3006 B37.2 Patient returns on April 04, 2024. Patient has candidiasi s under her breasts and on her upper abdomen. She has been using nystatin cream without relief. Will send prescripti on for nystatin powder. Will also send prescripti on for fluconazol e. [id number] Hanna Snider PA-C [facility] [address] [facility] [address] [place] [address] 04/18/2024 09:51:34 04/18/2024 11:21:47 Malignant tumor of ascending colon 609474631 C18.2 CT scan of the abdomen and [...] 8.2 hematocrit 29.0. MCV 67.9. Platelet count 923109. Normal cell differenti al. 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 Labs on June 02, 2023 with CEA at 21.9.Hemog lobin at 10.3 with normal iron studies.Pr evious CT scan on May 18, 2023 with 5.3 cm lesion in the liver right lobe. Decrease in size from previous imaging prior to starting chemothera py. Venous duplex on August 03, 2023 with extensive right lower extremity DVT. Will continue with Eliquis. Venous duplex on October 20, 2023 with no evidence of right lower extremity DVT. Clot resolution . Discontinu ed Eliquis. Started aspirin 81 mg p.o. daily. Labs on November 23, 2023 with CEA at 7.4. Continued decline in lab value. CT scan of the chest abdomen pelvis on November 05, 2023 with multiple low-densit y liver lesions that are unchanged from prior study in July 2023. No evidence of worsening disease. Stable hepatic metastasis . Patient returns on April 18, 2024. Patient has had a decreased appetite since last visit. Discussed could try an appetite stimulant if needed. Patient does have fatigue. She is receiving infusional iron today. Will follow up for improvemen t. Patient is tearful and crying during her visit today. She states her son has been diagnosed with bladder cancer. Patient with anxiety and depression . Discussed antidepres melina. Patient agreeable. Prescripti on for Cymbalta at previous visit. Will follow up labs today. Stable imaging on February 15, 2024. Patient continues with 5FU Leucovorin as well as Vectibix every 2 weeks. She has been receiving Vectibix every other time to conjunctiv itis. Eyes improved today so patient will receive Vectibix today on April 04, 2024. Continue with current therapy. Metastatic malignant neoplasm to liver 93812516 C78.7 CT scan of the abdomen and [...] Findings concerning for metastatic colon cancer. Nausea 494020369 R11.0 As needed Zofran and Phenergan prescribed . Pain due t o neoplastic disease [id number] 9102 G89.3 Right upper quadrant pain secondary to liver metastasis . Patient currently taking Tylenol. Discussed as needed oxycodone to limit Tylenol exposure. Anemia 121242846 D64.9 Right-side d colon mass concerning for malignancy . Will assess for any signs of iron deficiency . Most recent hemoglobin at 8.0. Concern for blood loss from colon mass. Patient reports dark stools. Adopted [id number] Z62.89 8 Patient is adopted and discussed hereditary gene panel. Patient does have family history of her son having bladder cancer. Will send [facility] hereditary panel. Antineopla stic chemotherapy regimen 698627389 Z51.11 Week 1 5FU Leucovorin Vectibix on [...] April 04, 2024.Cycle 21 of 5FU Leucovorin without Vectibix on April 18, 2024. Hypokalemia 90439916 E87 .6 Patient returns on April 29, 2023. Potassium is low at 2.9. Will send prescripti on for potassium 20 mEq daily. Will follow-up labs again next week. Deep venou s thrombosis 152413535 I82.409 Patient developed right lower extremity pain and edema.Veno us duplex on May 28, 2023 with evidence of deep vein thrombosis . Started on Eliquis 5 mg 1 tab p.o. b.i.d.. Did not start with Eliquis starter pack due to recent bleeding. Patient had a DVT and a PE in 1990 after her hysterecto my. Mixed anxi ety and depressive disorder 255131548 F41.8 Patient returns on November 23, 2023. [...] prescripti on for Cymbalta. Atopic conjunctivitis 23 7905555 H10.12 Patient with conjunctiv itis of the left eye. Held Vectibix on December 07, 2023. Continue with current therapy. Will follow up again in 2 weeks. Iron defic iency anemia 58810432 D50.9 Will follow up labs Insomnia 898992383 G47.0 0 Patient returns on February 08, 2024. She has had difficulty sleeping for most of her life. She has tried multiple medication s without relief. She is tried Mirtazapin e and lorazepam without improvemen t of insomnia. Discussed trying trazodone instead. Will send prescripti on. Will send prescripti on for Requip for restless legs. Restless legs 89800600 G 25.81 Patient returns on February 08, 2024. She has had difficulty sleeping for most of her life. She has tried multiple medication s without relief. She is tried Mirtazapin e and lorazepam without improvemen t of insomnia. Discussed trying trazodone instead. Prescripti on sent for Requip for restless legs. Candidiasis of skin 4988 3006 B37.2 Patient returns on April 04, 2024. Patient has candidiasi s under her breasts and on her upper abdomen. She has been using nystatin cream without relief. Will send prescripti on for nystatin powder. Will also send prescripti on for fluconazol e. [id number] Hanna Snider PA-C [facility] [address] [place] [address] 05/02/2024 09:52:10 05/02/2024 10:44:11 Malignant tumor of ascending colon 939953540 C18.2 CT scan of the abdomen and [...] 8.2 hematocrit 29.0. MCV 67.9. Platelet count 611236. Normal cell differenti al. 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 Labs on June 02, 2023 with CEA at 21.9.Hemog lobin at 10.3 with normal iron studies.Pr evious CT scan on May 18, 2023 with 5.3 cm lesion in the liver right lobe. Decrease in size from previous imaging prior to starting chemothera py. Venous duplex on August 03, 2023 with extensive right lower extremity DVT. Will continue with Eliquis. Venous duplex on October 20, 2023 with no evidence of right lower extremity DVT. Clot resolution . Discontinu ed Eliquis. Started aspirin 81 mg p.o. daily. Labs on November 23, 2023 with CEA at 7.4. Continued decline in lab value. CT scan of the chest abdomen pelvis on November 05, 2023 with multiple low-densit y liver lesions that are unchanged from prior study in July 2023. No evidence of worsening disease. Stable hepatic metastasis . Patient returns on May 02, 2024. Labs on April 18, 2024 with CEA at 32.7. she is scheduled for follow-up imaging on May 06, 2024. She mentioned she has had increased right upper quadrant pain. This is controlled with her current pain medication s. Patient has had a decreased appetite. Discussed could try an appetite stimulant if needed. Patient with anxiety and depression recently started Cymbalta. She has less anxiety and depression since starting this. Will follow up labs today. Stable imaging on February 15, 2024. Patient continues with 5FU Leucovorin as well as Vectibix every 2 weeks. She has been receiving Vectibix every other time to conjunctiv itis. She had a candidiasi s rash under her breast after last Vectibix treatment. She is used nystatin powder and took Diflucan tablet. Rash has resolved. Patient will receive not Vectibix today on May 02, 2024 due to conjunctiv itis. Continue with current therapy. Metastatic malignant neoplasm to liver 88472754 C78.7 CT scan of the abdomen and [...] Findings concerning for metastatic colon cancer. Nausea 993599366 R11.0 As needed Zofran and Phenergan prescribed . Pain due t o neoplastic disease [id number] 9102 G89.3 Right upper quadrant pain secondary to liver metastasis . Patient currently taking Tylenol. Discussed as needed oxycodone to limit Tylenol exposure. Anemia 606886907 D64.9 Right-side d colon mass concerning for malignancy . Will assess for any signs of iron deficiency . Most recent hemoglobin at 8.0. Concern for blood loss from colon mass. Patient reports dark stools. Adopted 607287538 Z62.89 8 Patient is adopted and discussed hereditary gene panel. Patient does have family history of her son having bladder cancer. Will send [facility] hereditary panel. Antineopla stic chemotherapy regimen 804675717 Z51.11 Week 1 5FU Leucovorin Vectibix on [...] 5FU Leucovorin without Vectibix on May 02, 2024. Hypokalemia 07862249 E87 .6 Patient returns on April 29, 2023. Potassium is low at 2.9. Will send prescripti on for potassium 20 mEq daily. Will follow-up labs again next week. Deep venou s thrombosis 895955242 I82.409 Patient developed right lower extremity pain and edema.Veno us duplex on May 28, 2023 with evidence of deep vein thrombosis . Started on Eliquis 5 mg 1 tab p.o. b.i.d.. Did not start with Eliquis starter pack due to recent bleeding. Patient had a DVT and a PE in 1990 after her hysterecto my. Mixed anxi ety and depressive disorder 974901348 F41.8 Patient returns on November 23, 2023. [...] prescripti on for Cymbalta. Atopic conjunctivitis 23 4675527 H10.12 Patient with conjunctiv itis of the left eye. Held Vectibix on December 07, 2023. Continue with current therapy. Will follow up again in 2 weeks. Iron defic iency anemia 53904772 D50.9 Will follow up labs Insomnia 342781040 G47.0 0 Patient returns on February 08, 2024. She has had difficulty sleeping for most of her life. She has tried multiple medication s without relief. She is tried Mirtazapin e and lorazepam without improvemen t of insomnia. Discussed trying trazodone instead. Will send prescripti on. Will send prescripti on for Requip for restless legs. Restless legs 27041213 G 25.81 Patient returns on February 08, 2024. She has had difficulty sleeping for most of her life. She has tried multiple medication s without relief. She is tried Mirtazapin e and lorazepam without improvemen t of insomnia. Discussed trying trazodone instead. Prescripti on sent for Requip for restless legs. Candidiasis of skin 4988 3006 B37.2 Patient returns on April 04, 2024. Patient has candidiasi s under her breasts and on her upper abdomen. She has been using nystatin cream without relief. Will send prescripti on for nystatin powder. Will also send prescripti on for fluconazol e. Patient had a candidiasi s rash under her breast after last Vectibix treatment. She is used nystatin powder and took Diflucan tablet. Rash has resolved. [id number] Tomy King MD [facility] [address] [place] [address] 05/16/2024 10:11:10 05/16/2024 10:33:39 Malignant tumor of ascending colon 373041629 C18.2 CT scan of the abdomen and [...] 8.2 hematocrit 29.0. MCV 67.9. Platelet count 873047. Normal cell differenti al. Low serum folate [...] of liver lesions. Will follow-up labs. Patient treated with 5FU Leucovorin and Vectibix on May 16, 2024. Metastatic malignant neoplasm to liver 95520758 C78.7 CT scan of the abdomen and [...] Findings concerning for metastatic colon cancer. Nausea 958112214 R11.0 As needed Zofran and Phenergan prescribed . Pain due t o neoplastic disease 6146751743 9102 G89.3 Right upper quadrant pain secondary to liver metastasis . Patient currently taking Tylenol. Discussed as needed oxycodone to limit Tylenol exposure. Anemia 487404470 D64.9 Right-side d colon mass concerning for malignancy . Will assess for any signs of iron deficiency . Most recent hemoglobin at 8.0. Concern for blood loss from colon mass. Patient reports dark stools. Adopted 633631496 Z62.89 8 Patient is adopted and discussed hereditary gene panel. Patient does have family history of her son having bladder cancer. Will send [facility] hereditary panel. Antineopla stic chemotherapy regimen 349178461 Z51.11 Week 1 5FU Leucovorin Vectibix on [...] 5FU Leucovorin on May 16, 2024. Vectibix resumed. Hypokalemia 52284496 E87 .6 Patient returns on April 29, 2023. Potassium is low at 2.9. Will send prescripti on for potassium 20 mEq daily. Will follow-up labs again next week. Deep venou s thrombosis 428052691 I82.409 Patient developed right lower extremity pain [...] duplex. Mixed anxi ety and depressive disorder 106088125 F41.8 Patient returns on November 23, 2023. [...] prescripti on for Cymbalta. Atopic conjunctivitis 23 1393510 H10.12 Patient with conjunctiv itis of the left eye. Held Vectibix on December 07, 2023. Continue with current therapy. Will follow up again in 2 weeks. Iron defic iency anemia 04442496 D50.9 Will follow up labs Insomnia 122672925 G47.0 0 Patient returns on February 08, 2024. She has had difficulty sleeping for most of her life. She has tried multiple medication s without relief. She is tried Mirtazapin e and lorazepam without improvemen t of insomnia. Discussed trying trazodone instead. Will send prescripti on. Will send prescripti on for Requip for restless legs. Restless legs 36985882 G 25.81 Patient returns on February 08, 2024. She has had difficulty sleeping for most of her life. She has tried multiple medication s without relief. She is tried Mirtazapin e and lorazepam without improvemen t of insomnia. Discussed trying trazodone instead. Prescripti on sent for Requip for restless legs. [id number] Hanna Snider PA-C [facility] [address] [place] [address] 05/30/2024 09:21:34 05/30/2024 11:05:52 Malignant tumor of ascending colon 888877326 C18.2 CT scan of the abdomen and [...] 8.2 hematocrit 29.0. MCV 67.9. Platelet count 346803. Normal cell differenti al. Low serum folate [...] lesions. Will follow-up labs. Patient returns on May 30, 2024. Patient [...] to try to keep the area dry. Patient has had intermitte nt nausea that occurs randomly. Will try scopolamin e patches. also had decreased appetite. Discussed appetite stimulant if needed. Will try scopolamin e patches for nausea first. Will follow-up. Will follow up labs. Metastatic malignant neoplasm to liver 62625403 C78.7 CT scan of the abdomen and [...] Findings concerning for metastatic colon cancer. Nausea 451869547 R11.0 As needed Zofran and Phenergan prescribed . Patient returns on May 30, 2024. Patient has had intermitte nt nausea that occurs randomly. Will try scopolamin e patches. Pain due t o neoplastic disease 5465073425 9102 G89.3 Right upper quadrant pain secondary to liver metastasis . Patient currently taking Tylenol. Discussed as needed oxycodone to limit Tylenol exposure. Anemia 346586858 D64.9 Right-side d colon mass concerning for malignancy . Will assess for any signs of iron deficiency . Most recent hemoglobin at 8.0. Concern for blood loss from colon mass. Patient reports dark stools. Adopted 199770988 Z62.89 8 Patient is adopted and discussed hereditary gene panel. Patient does have family history of her son having bladder cancer. Will send [facility] hereditary panel. Antineopla stic chemotherapy regimen 274569872 Z51.11 Week 1 5FU Leucovorin Vectibix on [...] May 30, 2024. Patient will receive Vectibix today. Hypokalemia 49360157 E87 .6 Patient returns on April 29, 2023. Potassium is low at 2.9. Will send prescripti on for potassium 20 mEq daily. Will follow-up labs again next week. Deep venou s thrombosis 503072341 I82.409 Patient developed right lower extremity pain [...] duplex. Mixed anxi ety and depressive disorder 603734649 F41.8 Patient returns on November 23, 2023. [...] prescripti on for Cymbalta. Atopic conjunctivitis 23 1075895 H10.12 Patient with conjunctiv itis of the left eye. Held Vectibix on December 07, 2023. Continue with current therapy. Will follow up again in 2 weeks. Iron defic iency anemia 90148551 D50.9 Will follow up labs Insomnia 789449087 G47.0 0 Patient returns on February 08, 2024. She has had difficulty sleeping for most of her life. She has tried multiple medication s without relief. She is tried Mirtazapin e and lorazepam without improvemen t of insomnia. Discussed trying trazodone instead. Will send prescripti on. Will send prescripti on for Requip for restless legs. Restless legs 12780529 G 25.81 Patient returns on February 08, [...] to keep the area dry. Will follow-up. Generalized rash 4278983 06 R21 Patient returns on May 30, [...] to keep the area dry. Will follow-up. [id number] Hanna Snider PA-C [facility] [address] [place] [address] 06/27/2024 09:58:37 06/27/2024 10:53:58 Malignant tumor of ascending colon 461668688 C18.2 CT scan of the abdomen and [...] 8.2 hematocrit 29.0. MCV 67.9. Platelet count 579937. Normal cell differenti al. Low serum folate [...] is following with the Coumadin clinic at [facility]. She is scheduled for cardiac MRI. Patient [...] up labs. Metastatic malignant neoplasm to liver 30497908 C78.7 CT scan of the abdomen and [...] Findings concerning for metastatic colon cancer. Nausea 428995425 R11.0 As needed Zofran and Phenergan prescribed . Discussed trying scopolamin e patches but her insurance wouldn't cover. Pain due t o neoplastic disease 0424188187 9102 G89.3 Right upper quadrant pain secondary to liver metastasis . Patient currently taking Tylenol. Discussed as needed oxycodone to limit Tylenol exposure. Anemia 585068067 D64.9 Right-side d colon mass concerning for malignancy . Will assess for any signs of iron deficiency . Most recent hemoglobin at 8.0. Concern for blood loss from colon mass. Patient reports dark stools. Adopted 739902828 Z62.89 8 Patient is adopted and discussed hereditary gene panel. Patient does have family history of her son having bladder cancer. Will send [facility] hereditary panel. Antineopla stic chemotherapy regimen 681185909 Z51.11 Week 1 5FU Leucovorin Vectibix on [...] Patient will receive not Vectibix today. Hypokalemia 85832235 E87 .6 Patient returns on April 29, 2023. Potassium is low at 2.9. Will send prescripti on for potassium 20 mEq daily. Will follow-up labs again next week. Deep venou s thrombosis 024009769 I82.409 Patient developed right lower extremity pain [...] duplex. Mixed anxi ety and depressive disorder 273852636 F41.8 Patient returns on November 23, 2023. [...] prescripti on for Cymbalta. Atopic conjunctivitis 23 9108026 H10.12 Patient with conjunctiv itis of the left eye. Held Vectibix on December 07, 2023. Continue with current therapy. Will follow up again in 2 weeks. Iron defic iency anemia 32568486 D50.9 Will follow up labs Insomnia 424732112 G47.0 0 Patient returns on February 08, 2024. She has had difficulty sleeping for most of her life. She has tried multiple medication s without relief. She is tried Mirtazapin e and lorazepam without improvemen t of insomnia. Discussed trying trazodone instead. Will send prescripti on. Will send prescripti on for Requip for restless legs. Restless legs 91565933 G 25.81 Patient returns on February 08, [...] patient has not received Vectibix. Generalized rash 5868654 06 R21 Patient returns on May 30, [...] is following with the Coumadin clinic at [facility]. Congestive heart failure 53046141 I50.9 Patient returns on June 27, 2024. Since previous visit patient has been diagnosed with congestive heart failure and atrial fibrillati on. She has started lasix and is following with a cardiologi st. [id number] Hanna Snider PA-C [facility] [address] [place] [address] 07/11/2024 09:55:48 07/11/2024 10:53:23 Malignant tumor of ascending colon 314051266 C18.2 CT scan of the abdomen and [...] 8.2 hematocrit 29.0. MCV 67.9. Platelet count 156252. Normal cell differenti al. Low serum folate [...] up labs. Metastatic malignant neoplasm to liver 57546660 C78.7 CT scan of the abdomen and [...] Findings concerning for metastatic colon cancer. Nausea 186624396 R11.0 As needed Zofran and Phenergan prescribed . Discussed trying scopolamin e patches but her insurance wouldn't cover. She is taking Zofran with relief. Pain due t o neoplastic disease 2902583508 9102 G89.3 She is taking hydrocodon e 7.5 mg b.i.d. Discussed taking medication every 4-6 hours as needed. Anemia 580557458 D64.9 Right-side d colon mass concerning for malignancy . Will assess for any signs of iron deficiency . Most recent hemoglobin at 8.0. Concern for blood loss from colon mass. Patient reports dark stools. Adopted 626759833 Z62.89 8 Patient is adopted and discussed hereditary gene panel. Patient does have family history of her son having bladder cancer. Will send [facility] hereditary panel. Antineopla stic chemotherapy regimen 638541020 Z51.11 Week 1 5FU Leucovorin Vectibix on [...] 2024. Patient will receive Vectibix today. Hypokalemia 18950669 E87 .6 Patient returns on April 29, 2023. Potassium is low at 2.9. Will send prescripti on for potassium 20 mEq daily. Will follow-up labs again next week. Deep venou s thrombosis 818336975 I82.409 Patient developed right lower extremity pain [...] duplex. Mixed anxi ety and depressive disorder 606054457 F41.8 Patient returns on November 23, 2023. [...] prescripti on for Cymbalta. Atopic conjunctivitis 23 8214192 H10.12 Patient with conjunctiv itis of the left eye. Held Vectibix on December 07, 2023. Continue with current therapy. Will follow up again in 2 weeks. Iron defic iency anemia 47019161 D50.9 Will follow up labs Insomnia 859662894 G47.0 0 Patient returns on February 08, 2024. She has had difficulty sleeping for most of her life. She has tried multiple medication s without relief. She is tried Mirtazapin e and lorazepam without improvemen t of insomnia. Discussed trying trazodone instead. Will send prescripti on. Will send prescripti on for Requip for restless legs. Restless legs 19314888 G 25.81 Patient returns on February 08, [...] patient has not received Vectibix. Generalized rash 9550136 06 R21 Patient returns on May 30, [...] is following with the Coumadin clinic at [facility]. Congestive heart failure 82839410 I50.9 Patient returns on June 27, 2024. Since previous visit patient has been diagnosed with congestive heart failure and atrial fibrillati on. She has started lasix and is following with a cardiologi st. [id number] Jnaa España MD [facility] [address] [place] [address] 07/06/2024 10:53:43 07/08/2024 03:53:47 Seen by palliative care service 109020059 Z51.5 Introduced services today. Dtr and son would be NOK - she feels important to start thinking about completion of LW/AD- I provided copies today and [facility] and will plan to f/u on this is two weeks. Encouraged her to think about HCS/code status. Still wants to continue chemo and has scans next week - did not discuss hospice, but eligible at any point Pain due t o neoplastic disease 6455889173 9102 G89.3 Uncontroll ed, had lortab prescribed which manages pain well when she takes medication . Encouraged adherence. Mixed anxi ety and depressive disorder 474798769 F41.8 Uncontroll ed. Not taking cymbalta. Encouraged adherence and PRN ativan for breakthrou gh syptoms. Did not wish to pursue CBt at this time, will d/w Elsa for additional support options moving forward Nausea and vomiting 1693 1999 R11.2 Related to malignancy vs. Chemo. Improved with PRN and qAM zofran, likely related to chemo vs. malignancy Loss of appetite 8389929 6 R63.0 Related to malignancy . Not taking mirtazapin e. Does not want to add additional Rx at this itme or see nutritioni st. [id number] Hanna Snider PA-C [facility] [address] [address] [place] [address] 07/25/2024 10:19:02 07/25/2024 10:39:35 Malignant tumor of ascending colon 388941603 C18.2 CT scan of the abdomen and [...] 8.2 hematocrit 29.0. MCV 67.9. Platelet count 476788. Normal cell differenti al. Low serum folate [...] Vectibix today. Metastatic malignant neoplasm to liver 48203507 C78.7 CT scan of the abdomen and [...] Findings concerning for metastatic colon cancer. Nausea 309171053 R11.0 As needed Zofran and Phenergan prescribed . Discussed trying scopolamin e patches but her insurance wouldn't cover. She is taking Zofran with relief. Pain due t o neoplastic disease [id number] 9102 G89.3 She is taking hydrocodon e 7.5 mg b.i.d. Discussed taking medication every 4-6 hours as needed. Anemia 607551474 D64.9 Right-side d colon mass concerning for malignancy . Will assess for any signs of iron deficiency . Hemoglobin previously 8.0. Concern for blood loss from colon mass. Patient reports dark stools. labs on July 25, 2024 with improvemen t of hemoglobin 12.6. Patient is currently receiving infusional iron. Adopted [id number] Z62.89 8 Patient is adopted and discussed hereditary gene panel. Patient does have family history of her son having bladder cancer. Will send [facility] hereditary panel. Antineopla stic chemotherapy regimen 251979353 Z51.11 Week 1 5FU Leucovorin Vectibix on [...] Patient will not receive Vectibix today. Hypokalemia 23623022 E87 .6 Patient returns on April 29, 2023. Potassium is low at 2.9. Will send prescripti on for potassium 20 mEq daily. Will follow-up labs again next week. Deep venou s thrombosis 946601285 I82.409 Patient developed right lower extremity pain [...] duplex. Mixed anxi ety and depressive disorder 532144029 F41.8 Patient returns on November 23, 2023. [...] reports depression has improved. Atopic conjunctivitis 23 4579713 H10.12 Patient with conjunctiv itis of the left eye. Held Vectibix on December 07, 2023. Continue with current therapy. Will follow up again in 2 weeks. Patient returns on July 25, 2024. She does have conjunctiv itis of the left eye. Will hold Vectibix today. Will follow up. Iron defic iency anemia 10033345 D50.9 Currently receiving infusional iron. Will continue to monitor. Insomnia 116223802 G47.0 0 Patient returns on February 08, 2024. She has had difficulty sleeping for most of her life. She has tried multiple medication s without relief. She is tried Mirtazapin e and lorazepam without improvemen t of insomnia. Discussed trying trazodone instead. Will send prescripti on. Will send prescripti on for Requip for restless legs. Restless legs 44214767 G 25.81 Patient returns on February 08, [...] with diflucan and nystain powder. Generalized rash 3348295 06 R21 Patient returns on May 30, [...] is following with the Coumadin clinic at [facility]. Congestive heart failure 31047411 I50.9 Patient returns on June 27, 2024. Since previous visit patient has been diagnosed with congestive heart failure and atrial fibrillati on. She has started lasix and is following with a cardiologi Cachexia 592256512 R64 Patient returns on July 25, 2024. Patient has had decreased appetite. Continues to lose weight. She has lost 4 more lbs since previous visit. She is drinking nutritiona l supplement s. Discussed appetite stimulant. Patient previously refused. Now she is agreeable to try Megace. Will send prescripti on. Will follow up for angela oakley [id number] Tomy King MD [facility] [address] [place] [address] 08/01/2024 11:10:37 08/01/2024 12:30:43 Malignant tumor of ascending colon 930293113 C18.2 CT scan of the abdomen and [...] 8.2 hematocrit 29.0. MCV 67.9. Platelet count 538947. Normal cell differenti al. Low serum folate [...] study published in September 2022 in the [place] [facility] of combined Avastin therapy with [...] Will follow-up Metastatic malignant neoplasm to liver 69370242 C78.7 CT scan of the abdomen and [...] Findings concerning for metastatic colon cancer. Nausea 193841875 R11.0 As needed Zofran and Phenergan prescribed . Discussed trying scopolamin e patches but her insurance wouldn't cover. She is taking Zofran with relief. Pain due t o neoplastic disease [id number] 9102 G89.3 She is taking hydrocodon e 7.5 mg b.i.d. Discussed taking medication every 4-6 hours as needed. Anemia 934634246 D64.9 Right-side d colon mass concerning for malignancy . Will assess for any signs of iron deficiency . Hemoglobin previously 8.0. Concern for blood loss from colon mass. Patient reports dark stools. labs on July 25, 2024 with improvemen t of hemoglobin 12.6. Patient is currently receiving infusional iron. Adopted 836814975 Z62.89 8 Patient is adopted and discussed hereditary gene panel. Patient does have family history of her son having bladder cancer. Will send [facility] hereditary panel. Antineopla stic chemotherapy regimen 511339683 Z51.11 Week 1 5FU Leucovorin Vectibix on [...] 2024 due to disease progressio n. Hypokalemia 95996672 E87 .6 Patient returns on April 29, 2023. Potassium is low at 2.9. Will send prescripti on for potassium 20 mEq daily. Will follow-up labs again next week. Deep venou s thrombosis 906709553 I82.409 Patient developed right lower extremity pain [...] duplex. Mixed anxi ety and depressive disorder 656110966 F41.8 Patient returns on November 23, 2023. [...] reports depression has improved. Atopic conjunctivitis 23 1836668 H10.12 Patient with conjunctiv itis of the left eye. Held Vectibix on December 07, 2023. Continue with current therapy. Will follow up again in 2 weeks. Patient returns on July 25, 2024. She does have conjunctiv itis of the left eye. Will hold Vectibix today. Will follow up. Iron defic iency anemia 12034079 D50.9 Currently receiving infusional iron. Will continue to monitor. Insomnia 268992386 G47.0 0 Patient returns on February 08, 2024. She has had difficulty sleeping for most of her life. She has tried multiple medication s without relief. She is tried Mirtazapin e and lorazepam without improvemen t of insomnia. Discussed trying trazodone instead. Will send prescripti on. Will send prescripti on for Requip for restless legs. Restless legs 59887042 G 25.81 Patient returns on February 08, [...] with diflucan and nystain powder. Generalized rash 1699915 06 R21 Patient returns on May 30, [...] is following with the Coumadin clinic at [facility]. Congestive heart failure 54890775 I50.9 Patient returns on June 27, 2024. Since previous visit patient has been diagnosed with congestive heart failure and atrial fibrillati on. She has started lasix and is following with a cardiologi st. Cachexia 392575794 R64 Patient returns on July 25, 2024. Patient has had decreased appetite. Continues to lose weight. She has lost 4 more lbs since previous visit. She is drinking nutritiona l supplement s. Discussed appetite stimulant. Patient previously refused. Now she is agreeable to try Megace. Will send prescripti on. Will follow up for angela oakley [id number] Hanna Snider PA-C [facility] [address] [place] [address] 08/10/2024 09:37:37 08/10/2024 10:29:37 Malignant tumor of ascending colon 154607572 C18.2 CT scan of the abdomen and [...] 8.2 hematocrit 29.0. MCV 67.9. Platelet count 337336. Normal cell differenti al. Low serum folate [...] study published in September 2022 in the [place] [facility] of combined Avastin therapy with [...] liver lesions. Metastatic malignant neoplasm to liver 96838272 C78.7 CT scan of the abdomen and [...] patient is a candidate for radiation Nausea 474015855 R11.0 As needed Zofran and Phenergan prescribed . Discussed trying scopolamin e patches but her insurance wouldn't cover. She is taking Zofran with relief. Pain due t o neoplastic disease 3016653362 9102 G89.3 She is taking hydrocodon e 7.5 mg b.i.d. Discussed taking medication every 4-6 hours as needed. Anemia 788075962 D64.9 Right-side d colon mass concerning for malignancy . Will assess for any signs of iron deficiency . Hemoglobin previously 8.0. Concern for blood loss from colon mass. Patient reports dark stools. Labs on August 10, 2024 with hemoglobin slightly low at 11.9. She is receiving infusional iron as needed. Adopted 420980849 Z62.89 8 Patient is adopted and discussed hereditary gene panel. Patient does have family history of her son having bladder cancer. [facility] hereditary panel sent Antineopla stic chemotherapy regimen 581143912 Z51.11 Week 1 5FU Leucovorin Vectibix on [...] monitor for tolerabili ty and toxicity. Hypokalemia 15056494 E87 .6 Currently taking for potassium 20 mEq daily. Will follow up labs. Mixed anxi ety and depressive disorder 403542859 F41.8 Patient returns on November 23, 2023. [...] reports depression has improved. Atopic conjunctivitis 23 1509559 H10.12 Conjunctiv itis due to Vectibix. This is improving. Iron defic iency anemia 00370750 D50.9 Currently receiving infusional iron as needed. Will continue to monitor. Insomnia 639381966 G47.0 0 Patient has had difficulty sleeping for most of her life. She has tried multiple medication s without relief. She is tried Mirtazapin e and lorazepam without improvemen t of insomnia. Discussed trying trazodone instead. Restless legs 23553048 G 25.81 Patient taking Requip for restless legs. Generalized rash 3258257 06 R21 Patient with rash due to Vectibix. This is improving. Atrial fibrillation 4943 6004 I48.91 Patient has been diagnosed with congestive heart failure and atrial fibrillati on. She has been started on Coumadin. She is following with the Coumadin clinic at [facility]. Congestive heart failure 83609571 I50.9 Patient has been diagnosed with congestive heart failure. She has started lasix and is following with a cardiologi st. Cachexia 218185895 R64 Patient has had decreased appetite and weight loss. She is drinking nutritiona l supplement s. Discussed appetite stimulant. Patient previously refused. She has started on Megace. Will continue to monitor History of deep vein thrombosis 856159406 Z86.718 Patient developed right lower extremity pain [...] repeat venous duplex. Drug therapy finding 309 818853 Z79.01 She continues on Coumadin due to a fib. She is following with the Coumadin clinic at [facility]. [id number] [facility] [address] [place] [address] 08/25/2024 09:02:23 08/25/2024 09:51:52 Antineoplastic chemotherapy regimen 957930921 Z51.11 Week 1 5FU Leucovorin Vectibix on [...] and toxicity. Malignant tumor of ascending colon 520476264 C18.2 CT scan of the abdomen and [...] 8.2 hematocrit 29.0. MCV 67.9. Platelet count 053357. Normal cell differenti al. Low serum folate [...] study published in September 2022 in the [place] [facility] of combined Avastin therapy with [...] liver lesions. Metastatic malignant neoplasm to liver 20028726 C78.7 CT scan of the abdomen and [...] patient is a candidate for radiation Nausea 444906767 R11.0 As needed Zofran and Phenergan prescribed . Discussed trying scopolamin e patches but her insurance wouldn't cover. She is taking Zofran with relief. Pain due t o neoplastic disease 9081910426 9102 G89.3 She is taking hydrocodon e [...] does take her current medication s Anemia 349370325 D64.9 Right-side d colon mass concerning for malignancy . Will assess for any signs of iron deficiency . Hemoglobin previously 8.0. Concern for blood loss from colon mass. Patient reports dark stools. Labs on August 10, 2024 with hemoglobin slightly low at 11.9. She is receiving infusional iron as needed. Adopted 490819364 Z62.89 8 Patient is adopted and discussed hereditary gene panel. Patient does have family history of her son having bladder cancer. [facility] hereditary panel sent Hypokalemia 81570227 E87 .6 Currently taking for potassium 20 mEq daily. Will follow up labs. Mixed anxi ety and depressive disorder 504091874 F41.8 Patient returns on November 23, 2023. [...] reports depression has improved. Atopic conjunctivitis 23 2400974 H10.12 Conjunctiv itis due to Vectibix. This is improving. Iron defic iency anemia 79630007 D50.9 Receiving infusional iron as needed. Will continue to monitor. Insomnia 000535340 G47.0 0 Patient has had difficulty sleeping for most of her life. She has tried multiple medication s without relief. She is tried Mirtazapin e and lorazepam without improvemen t of insomnia. Discussed trying trazodone instead. Restless legs 41696265 G 25.81 Patient taking Requip for restless legs. Generalized rash 3371015 06 R21 Rash due to Vectibix. This has improved. Atrial fibrillation 4943 6004 I48.91 Patient has been diagnosed with congestive heart failure and atrial fibrillati on. She has been started on Coumadin. She is following with the Coumadin clinic at [facility]. Congestive heart failure 74182447 I50.9 Patient has been diagnosed with congestive heart failure. She has started lasix and is following with a cardiologi . Cachexia 011061914 R64 Patient has had decreased appetite and weight loss. She is drinking nutritiona l supplement s. Discussed appetite stimulant. Patient previously refused. She has started on Megace. She does not like the taste of Megace. Discussed Megace tablets instead of liquid but patient declines at this time. Will continue to monitor History of deep vein thrombosis 513659182 Z86.718 Patient developed right lower extremity pain [...] repeat venous duplex. Drug therapy finding 309 609785 Z79.01 She continues on Coumadin due to a fib. She is following with the Coumadin clinic at [facility]. Acute post traumatic headache 0167791238 71610 G44.319 Patient returns on August 25, 2024. [...] Internatio nal normalized ratio above reference range 718355039 R79.1 Patient returns on August 25, 2024. She is on Coumadin for atrial fibrillati on and her INR is elevated. She is going to the Coumadin Clinic for management . INR 8 today. She is going to hold Coumadin and contact Coumadin Clinic for directions today. Denies any bleeding at this time. [id number] Hanna Snider PA-C [facility] [address] [place] [address] 09/02/2024 11:29:36 09/02/2024 12:07:33 Antineoplastic chemotherapy regimen 961983229 Z51.11 Week 1 5FU Leucovorin Vectibix on [...] with irinotecan on August 25, 2024. Will monitor for tolerabili ty and toxicity.P atient returns on September 02, 2024. Patient with increased diarrhea, nausea, and vomiting for the past 4 days. Discussed dose reducing Irinotecan with her next chemothera py cycle. Will follow up. Malignant tumor of ascending colon 320475661 C18.2 CT scan of the abdomen and [...] 8.2 hematocrit 29.0. MCV 67.9. Platelet count 444595. Normal cell differenti al. Low serum folate [...] study published in September 2022 in the [place] [facility] of combined Avastin therapy with [...] liver lesions. Metastatic malignant neoplasm to liver 98256203 C78.7 CT scan of the abdomen and [...] patient is a candidate for radiation Nausea 816887625 R11.0 As needed Zofran and Phenergan prescribed . Discussed trying scopolamin e patches but her insurance wouldn't cover. Patient returns on September 02, 2024. Patient with increased diarrhea, nausea, and vomiting for the past 4 days. She is taking Zofran tablets and Phenergan at home. Will send prescripti on for Zofran ODT. Will also send prescripti on for Pepcid 20 mg daily. Discussed starting Ativan and Reglan for nausea and vomiting. Will send prescripti ons. Pain due t o neoplastic disease 7842516453 9102 G89.3 She is taking hydrocodon e [...] she does take her current medication s Patient returns on September 02, 2024. She has had increased abdominal pain. She is taking hydrocodon e 7.5 mg 1 tab every 4 hours without much relief. Will start Morphine 15mg i tab po every 3-4 hours instead. Anemia 927962527 D64.9 Right-side d colon mass concerning for malignancy . Will assess for any signs of iron deficiency . Hemoglobin previously 8.0. Concern for blood loss from colon mass. Patient reports dark stools. Labs on August 10, 2024 with hemoglobin slightly low at 11.9. She is receiving infusional iron as needed. Adopted 481491905 Z62.89 8 Patient is adopted and discussed hereditary gene panel. Patient does have family history of her son having bladder cancer. [facility] hereditary panel sent Hypokalemia 47403850 E87 .6 Currently taking for potassium 20 mEq daily. Will follow up labs. Mixed anxi ety and depressive disorder 118875426 F41.8 Patient returns on November 23, 2023. [...] reports depression has improved. Atopic conjunctivitis 23 3447386 H10.12 Conjunctiv itis due to Vectibix. This is improving. Iron defic iency anemia 14698413 D50.9 Receiving infusional iron as needed. Will continue to monitor. Insomnia 550656960 G47.0 0 Patient has had difficulty sleeping for most of her life. She has tried multiple medication s without relief. She is tried Mirtazapin e and lorazepam without improvemen t of insomnia. Discussed trying trazodone instead. Restless legs 82686546 G 25.81 Patient taking Requip for restless legs. Generalized rash 3816731 06 R21 Rash due to Vectibix. This has improved. Atrial fibrillation 4943 6004 I48.91 Patient has been diagnosed with congestive heart failure and atrial fibrillati on. She has been started on Coumadin. She is following with the Coumadin clinic at [facility]. Congestive heart failure 76739042 I50.9 Patient has been diagnosed with congestive heart failure. She has started lasix and is following with a cardiologi Cachexia 553735130 R64 Patient has had decreased appetite and weight loss. She is drinking nutritiona l supplement s. Discussed appetite stimulant. Patient previously refused. She has started on Megace. She does not like the taste of Megace. Discussed Megace tablets instead of liquid but patient declines at this time. Will continue to monitor History of deep vein thrombosis 480843915 Z86.718 Patient developed right lower extremity pain [...] repeat venous duplex. Drug therapy finding 309 867485 Z79.01 She continues on Coumadin due to a fib. She is following with the Coumadin clinic at [facility]. Internatio nal normalized ratio above reference range 697257118 R79.1 Patient returns on August 25, 2024. She is on Coumadin for atrial fibrillati on and her INR is elevated. She is going to the Coumadin Clinic for management . INR 8 today. She is going to hold Coumadin and contact Coumadin Clinic for directions today. Denies any bleeding at this time. Diarrhea 27815642 R19.7 Patient with increased diarrhea, nausea, and vomiting for the past 4 days. She is taking Imodium and Lomotil without relief. She has a history of C diff. Will order stool studies today. Will check stool for C diff today. Dehydration 91084473 E86 .0 Patient returns on September 02, 2024. Patient with increased diarrhea, nausea, and vomiting for the past 4 days. No fever or chills. IV fluids along with Pepcid and Zofran today for dehydratio n. Health Concerns Section Related Observation LastModified by Organization Detai ls LastModified Time None Recorded Concern Status LastModified by Organization Details LastModified Time None Recorded Advance Directives Directive None Recorded Payers Encounter Date Sequence Insurance Name Policy Number Policy Bell Covered Member ID Bell Member ID Guarantor Name 07/25/2024 1 [place] Vicky J Chambers [id number] Vickytessie Marie Chambers 07/25/2024 2 [employer] (MEDICARE SUPPLEMENT) Vicky Marie Chambers [id number] Vickytessie Marie Chambers 08/01/2024 1 [place] Vicky J Chambers [id number] Vicky Frank Chambers 08/01/2024 2 [employer] (MEDICARE SUPPLEMENT) Vicky Frank Chambers [id number] Vicky Frank Chambers 08/10/2024 1 [place] Vicky J Chambers [id number] Vicky Frank Chambers 08/10/2024 2 [employer] (MEDICARE SUPPLEMENT) Vicky Frank Chambers [id number] Vicky Frank Chambers 08/25/2024 1 [place] Vicky J Chambers [id number] Vickytessie Marie Chambers 08/25/2024 2 [employer] (MEDICARE SUPPLEMENT) Vickytessie Marie Chambers [id number] Vicky Frank Chambers 09/02/2024 1 [place] Vicky J Chambers [id number] Vickytessie Marie Chambers 09/02/2024 2 [employer] (MEDICARE SUPPLEMENT) Vickytessie Marie Chambers [id number] Vickytessie Marie Chambers Notes Date Note Type Note Provider Name and Address Organization Details Recorded Time 07/25/2024 text/html 78 yo F returns for evaluation of metastatic colon cancer. Patient recently seen on February 17, 2023 in the emergency room at [facility] with abdominal pain. Patient reported [...] 8.2 hematocrit 29.0. MCV 67.9. Platelet count 081347. Normal cell differential. Low serum folate of [...] with metastatic colorectal cancer. Discussed chemotherapy with [place] based regimen with 5FU Leucovorin if [...] is following with the Coumadin clinic at [facility]. She is scheduled for cardiac MRI. Patient [...] up for improvement. Will follow up labs. Hanna Snider PA-C [address] [facility], [place], [address], [place] - [place] - [place] & [place] 07/25/2024 11:22:44 08/01/2024 text/html 78 yo F returns for evaluation of metastatic colon cancer. Patient recently seen on February 17, 2023 in the emergency room at [facility] with abdominal pain. Patient reported [...] 8.2 hematocrit 29.0. MCV 67.9. Platelet count 308479. Normal cell differential. Low serum folate of [...] with metastatic colorectal cancer. Discussed chemotherapy with [place] based regimen with 5FU Leucovorin if [...] is following with the Coumadin clinic at [facility]. She is scheduled for cardiac MRI. Patient [...] study published in September 2022 in the [place] [facility] of combined Avastin therapy with [place]. Phase 3 trial with median overall survival of 10.8 months in combination therapy verses 7.5 months [place] alone. Progression-free survival 5.6 months versus 2.4 months in [place] alone therapy. Tomy King MD [address], [place], [address], [place] - [place] & [place] 08/01/2024 13:08:52 08/10/2024 text/html 78 yo F returns for evaluation of metastatic colon cancer. Patient recently seen on February 17, 2023 in the emergency room at [facility] with abdominal pain. Patient reported [...] 8.2 hematocrit 29.0. MCV 67.9. Platelet count 865411. Normal cell differential. Low serum folate of [...] with metastatic colorectal cancer. Discussed chemotherapy with [place] based regimen with 5FU Leucovorin if [...] is following with the Coumadin clinic at [facility]. She is scheduled for cardiac MRI. Patient [...] study published in September 2022 in the [place] [facility] of combined Avastin therapy with [place]. Phase 3 trial with median overall survival of 10.8 months in combination therapy verses 7.5 months [place] alone. Progression-free survival 5.6 months versus 2.4 months in [place] alone therapy. Patient returns on August 10, 2024. Pain is currently controlled with current medications. She does need a refill on her pain medication. She mentions she lost her balance and had a fall this morning. Her knee is sore but she is ambulating without trouble. Discussed using a walker for balance if needed. She does have a walker at home. Denies any previous fall. Will follow up if this continues. She is starting every 2 week dosing of 5FU Leucovorin with irinotecan today. Chemotherapy education provided before treatment started. Will follow up labs prior to chemotherapy today. Will monitor for tolerability and toxicity. Hanna Snider PA-C [address], [place], [address], [place] - [place] 08/10/2024 11:13:32 08/25/2024 text/html 78 yo F returns for evaluation of metastatic colon cancer. Patient recently seen on February 17, 2023 in the emergency room at [facility] with abdominal pain. Patient reported [...] 8.2 hematocrit 29.0. MCV 67.9. Platelet count 185447. Normal cell differential. Low serum folate of [...] with metastatic colorectal cancer. Discussed chemotherapy with [place] based regimen with 5FU Leucovorin if [...] is following with the Coumadin clinic at [facility]. She is scheduled for cardiac MRI. Patient [...] study published in September 2022 in the [place] Journal [facility] of combined Avastin therapy with [...] today. Will monitor for tolerability and toxicity. Hanna Snider PA-C [address], [place], [address], [place] - [facility] - [place] & [place] 08/25/2024 10:43:13 09/02/2024 text/html 78 yo F returns for evaluation of metastatic colon cancer. Patient recently seen on February 17, 2023 in the emergency room at [facility] with abdominal pain. Patient reported [...] 8.2 hematocrit 29.0. MCV 67.9. Platelet count 080765. Normal cell differential. Low serum folate of [...] with metastatic colorectal cancer. Discussed chemotherapy with [place] based regimen with 5FU Leucovorin if [...] is following with the Coumadin clinic at [facility]. She is scheduled for cardiac MRI. Patient [...] study published in September 2022 in the [place] Journal [facility] of combined Avastin therapy with [place]. Phase 3 trial with median overall survival of 10.8 months in combination therapy verses 7.5 months [place]f alone. Progression-free survival 5.6 months versus 2.4 months in [place] alone therapy. Patient returns on September 02, 2024. Patient with increased diarrhea, nausea, and vomiting for the past 4 days. No fever or chills. She is taking Imodium and Lomotil without relief. She has a history of C diff. Will order stool studies today. Will check stool for C diff today. Giving IV fluids along with Pepcid and Zofran today for dehydration. She is taking Zofran tablets and Phenergan at home. Will send prescription for Zofran ODT. Will also send prescription for Pepcid 20 mg daily. Discussed starting Ativan and Reglan for nausea and vomiting. Will send prescriptions. She has had increased abdominal pain. She is taking hydrocodone 7.5 mg 1 tab every 4 hours without much relief. Will start Morphine 15mg i tab po every 3-4 hours instead. Will follow up labs today. Discussed dose reducing Irinotecan with her next chemotherapy cycle. Will follow up. Hanna Snider PA-C [address], [place], [address], [facility] - [place] & [place] 09/02/2024 12:55:35 OBGyn Episode No OBEpisode recorded.
--- OUTSIDE RECORDS SUMMARY | 2024-09-08 21:05 | XMS_ITS | Continuity of Care Document ---
Author Organization [facility] Address [address] [place] [address] Care Team Providers Care [employer] Sales Representative Name Role Phone ADDY GONZALES General Surgeon CARLOS A COATS Primary Care Provider VERONIKA RIVER [employer] Estimator [phone] Assessment No assessment recorded. Plan of Treatment Reminders Order Date Submit Date Provider Last Modified By Organization Details Last Modified Time Details Appointments None recorded. Lab culture, stool [address] [facility], [address] [facility], [place], [address], 12:12:16 O&P (ova & parasites), stool [address] [facility], [address] [place], [address], 12:12:17 C diff screen, stool, reflex PCR [address] [facility], [address] [facility], [place], [address], 5 12:12:17 CBC w/ auto diff 2024 025 [facility], [address] [facility], [place], [address], 5 16:09:44 CMP, serum or plasma 2024 025 [facility], [address], [place], [address], 14:45:24 Referral None recorded. Procedures None recorded. Surgeries None recorded. Imaging None recorded. Medication Orders ondansetron 8 mg disintegrat ing tablet [address] [facility] [id number], [address] [place], [address], 12:29:05 Pepcid 20 mg tablet [address] [facility] [address], [address] [place], [address], 12:29:05 Patient TargetsNo targets recorded. Patient InstructionsNo instructions recorded. Reason for Referral None Reported. Problems Name Problem SNOMED Code Status Onset Date Resolution Date Notes Provider Name and Address Organization Details Recorded Time Headache 85626213 Active 2024 Christine Farfan [place], [place] - [facility] & [place] 5 10:27:12 Metastatic malignant neoplasm to liver 94333676 Active 2022 Ghassan Lieberman PA-C [address] , [place], [address] , [place] - [facility] & [place] 3 14:27:25 Mass of colon 129835713 Active 2022 Ghassan Lieberman PA-C [address] , [place], [address] , [place] [facility] & [place] 3 14:27:30 Anemia 869561886 Active 2022 Ghassan Lieberman PA-C [address], [place], [address] , [place] [facility] & [place] 3 14:27:36 Nausea and vomiting 11085502 Active 2022 Ghassan Lieberman PA-C [address], [place], [address] , [facility] & [place] 3 14:27:46 Unintentional weight loss 783575610 Active [address], [place], [address] , [facility] & [place] 3 16:13:07 Night sweats 84726953 Active [address], [place], [address] , [facility] & [place] 3 16:13:12 Problem Notes None recorded. Procedures Surgical History Date Name Laterality Status Provider Name and Address Organization Details Recorded Time 04/29/20 23 Venipuncture completed [address], [place], [address], [facility] & [place] 04/27/2023 15:05:29 04/15/20 23 Venipuncture completed Stephanie Maravilla [facility] & [place] 04/15/2023 15:24:55 hysterectomy completed Laurel Samuels [facility] & [place] 03/11/2023 15:30:22 extraction of cataract completed Laurel Samuels [facility] & [place] 03/11/2023 15:30:36 excision of colon completed Loree Tadeo [facility] & [place] 04/21/2023 11:32:07 Imaging Results None recorded. Procedure Notes None recorded. Medical Equipment None Reported. Allergies Allergen ID Allergen Name Allergen Category Reaction Reaction Severity Criticality Documentation Date Start Date Code Code System Note Provider Name and Address Organization Details Recorded Time 28461 tetracycl ine medicatio n hives Not available high 02/19/2023 64440 RxNorm Brandy Raheem yusuf [facility] & [place] 3 14:03:33 Medications Name [...] Available Vitals Date Recorded Body height Body temperature Oxygen saturation Oxygen saturation in Arterial blood by Pulse oximetry Heart rate Respiratory rate Systolic blood pressure Diastolic blood pressure Provider Name and Address Organization Details Last Updated DateTime 5 162.56 cm 97.2 [degF] 95 % 95 % 141 /min 20 /min 137 mm[Hg] 86 mm[Hg] Laurel ELIAS [facility] & [place] 5 12:09:03 Social History Question Answer Notes LastModified by Organizat ion Details LastModified Time Tobacco Smoking Status Never Smoker CURT Johnston [facility] & [place] 02/19/2023 14:02:59 What Is Your Level Of Alcohol Consumption? None [email or web address] Information not available 02/19/2023 What Is Your Level Of Caffeine Consumption? None [email or web address] Information not available 02/19/2023 What Was The Date Of Your Most Recent Tobacco Screening? 11/23/2023 [email or web address] Information not available 11/23/2023 Do You Use Any Illicit Or Recreational Drugs? No [email or web address] Information not available 02/19/2023 Has Tobacco Cessation Counseling Been Provided? No [email or web address] Information not available 07/13/2023 Do You Or Have You Ever Used Any Other Forms Of Tobacco Or Nicotine? No [email or web address] Information not available 02/19/2023 Sex: Unknown Functional Status None recorded. Mental Status None recorded. Family History Nothing Reported. Medical History No medical history recorded. Gynecological HistoryNo gynecological history recorded. Obstetrics History GPAL:G 0 P 0 0 0 0 Immunizations Vaccine Type Date Status Note Provider Nam e and Address Organization Details Recorded Time pneumococcal polysaccharide PPV23 7 completed CURT Matta [facility] & [place] 12/21/2023 09:56:34 Past Encounters Encounter ID Performer Location Encounter Start Date Encounter Closed Date Diagnosis/Indication Diagnosis SNOMED-CT Code Diagnosis ICD10 Code Diagnosis Note [id number] Hanna Snider PA-C [facility] [address] [place] [address] 08/10/2024 09:37:37 08/10/2024 10:29:37 Malignant tumor of ascending colon 535727991 C18.2 CT scan of the abdomen and [...] 8.2 hematocrit 29.0. MCV 67.9. Platelet count 670146. Normal cell differenti al. Low serum folate [...] study published in September 2022 in the [place] Journal [facility] of combined Avastin therapy with [...] liver lesions. Metastatic malignant neoplasm to liver 20970613 C78.7 CT scan of the abdomen and [...] patient is a candidate for radiation Nausea 554058624 R11.0 As needed Zofran and Phenergan prescribed . Discussed trying scopolamin e patches but her insurance wouldn't cover. She is taking Zofran with relief. Pain due t o neoplastic disease 3609891936 9102 G89.3 She is taking hydrocodon e 7.5 mg b.i.d. Discussed taking medication every 4-6 hours as needed. Anemia 890804749 D64.9 Right-side d colon mass concerning for malignancy . Will assess for any signs of iron deficiency . Hemoglobin previously 8.0. Concern for blood loss from colon mass. Patient reports dark stools. Labs on August 10, 2024 with hemoglobin slightly low at 11.9. She is receiving infusional iron as needed. Adopted 420617702 Z62.89 8 Patient is adopted and discussed hereditary gene panel. Patient does have family history of her son having bladder cancer. [facility] hereditary panel sent Antineopla stic chemotherapy regimen 196002989 Z51.11 Week 1 5FU Leucovorin Vectibix on [...] monitor for tolerabili ty and toxicity. Hypokalemia 75194661 E87 .6 Currently taking for potassium 20 mEq daily. Will follow up labs. Mixed anxi ety and depressive disorder 244065268 F41.8 Patient returns on November 23, 2023. [...] reports depression has improved. Atopic conjunctivitis 23 9022091 H10.12 Conjunctiv itis due to Vectibix. This is improving. Iron defic iency anemia 47301112 D50.9 Currently receiving infusional iron as needed. Will continue to monitor. Insomnia 957196558 G47.0 0 Patient has had difficulty sleeping for most of her life. She has tried multiple medication s without relief. She is tried Mirtazapin e and lorazepam without improvemen t of insomnia. Discussed trying trazodone instead. Restless legs 15507216 G 25.81 Patient taking Requip for restless legs. Generalized rash 5525128 06 R21 Patient with rash due to Vectibix. This is improving. Atrial fibrillation 4943 6004 I48.91 Patient has been diagnosed with congestive heart failure and atrial fibrillati on. She has been started on Coumadin. She is following with the Coumadin clinic at [facility]. Congestive heart failure 59807117 I50.9 Patient has been diagnosed with congestive heart failure. She has started lasix and is following with a cardiologi st. Cachexia 683391661 R64 Patient has had decreased appetite and weight loss. She is drinking nutritiona l supplement s. Discussed appetite stimulant. Patient previously refused. She has started on Megace. Will continue to monitor History of deep vein thrombosis 856212632 Z86.718 Patient developed right lower extremity pain [...] repeat venous duplex. Drug therapy finding 309 492058 Z79.01 She continues on Coumadin due to a fib. She is following with the Coumadin clinic at [facility]. [id number] [facility] [address] [place] [address] 08/25/2024 09:02:23 08/25/2024 09:51:52 Antineoplastic chemotherapy regimen 356609194 Z51.11 Week 1 5FU Leucovorin Vectibix on [...] and toxicity. Malignant tumor of ascending colon 483083021 C18.2 CT scan of the abdomen and [...] 8.2 hematocrit 29.0. MCV 67.9. Platelet count 574368. Normal cell differenti al. Low serum folate [...] study published in September 2022 in the [place] [facility] of combined Avastin therapy with [...] liver lesions. Metastatic malignant neoplasm to liver 98172610 C78.7 CT scan of the abdomen and [...] patient is a candidate for radiation Nausea 245011816 R11.0 As needed Zofran and Phenergan prescribed . Discussed trying scopolamin e patches but her insurance wouldn't cover. She is taking Zofran with relief. Pain due t o neoplastic disease 5436840731 9102 G89.3 She is taking hydrocodon e [...] does take her current medication s Anemia 212075057 D64.9 Right-side d colon mass concerning for malignancy . Will assess for any signs of iron deficiency . Hemoglobin previously 8.0. Concern for blood loss from colon mass. Patient reports dark stools. Labs on August 10, 2024 with hemoglobin slightly low at 11.9. She is receiving infusional iron as needed. Adopted 763137224 Z62.89 8 Patient is adopted and discussed hereditary gene panel. Patient does have family history of her son having bladder cancer. [facility] hereditary panel sent Hypokalemia 56560741 E87 .6 Currently taking for potassium 20 mEq daily. Will follow up labs. Mixed anxi ety and depressive disorder 667366902 F41.8 Patient returns on November 23, 2023. [...] reports depression has improved. Atopic conjunctivitis 23 6614654 H10.12 Conjunctiv itis due to Vectibix. This is improving. Iron defic iency anemia 22704315 D50.9 Receiving infusional iron as needed. Will continue to monitor. Insomnia 360170747 G47.0 0 Patient has had difficulty sleeping for most of her life. She has tried multiple medication s without relief. She is tried Mirtazapin e and lorazepam without improvemen t of insomnia. Discussed trying trazodone instead. Restless legs 17622018 G 25.81 Patient taking Requip for restless legs. Generalized rash 8205695 06 R21 Rash due to Vectibix. This has improved. Atrial fibrillation 4943 6004 I48.91 Patient has been diagnosed with congestive heart failure and atrial fibrillati on. She has been started on Coumadin. She is following with the Coumadin clinic at [facility]. Congestive heart failure 91257234 I50.9 Patient has been diagnosed with congestive heart failure. She has started lasix and is following with a cardiologi . Cachexia 585860634 R64 Patient has had decreased appetite and weight loss. She is drinking nutritiona l supplement s. Discussed appetite stimulant. Patient previously refused. She has started on Megace. She does not like the taste of Megace. Discussed Megace tablets instead of liquid but patient declines at this time. Will continue to monitor History of deep vein thrombosis 315722419 Z86.718 Patient developed right lower extremity pain [...] repeat venous duplex. Drug therapy finding 309 284348 Z79.01 She continues on Coumadin due to a fib. She is following with the Coumadin clinic at [facility]. Acute post traumatic headache 2501323100 63562 G44.319 Patient returns on August 25, 2024. [...] Internatio nal normalized ratio above reference range 470630026 R79.1 Patient returns on August 25, 2024. She is on Coumadin for atrial fibrillati on and her INR is elevated. She is going to the Coumadin Clinic for management . INR 8 today. She is going to hold Coumadin and contact Coumadin Clinic for directions today. Denies any bleeding at this time. [id number] Hanna Snider PA-C [facility] [address] [place] [address] 09/02/2024 11:29:36 09/02/2024 12:07:33 Antineoplastic chemotherapy regimen 295870443 Z51.11 Week 1 5FU Leucovorin Vectibix on [...] follow up. Malignant tumor of ascending colon 171878999 C18.2 CT scan of the abdomen and [...] 8.2 hematocrit 29.0. MCV 67.9. Platelet count 711994. Normal cell differenti al. Low serum folate [...] study published in September 2022 in the [place] [facility] of combined Avastin therapy with [...] liver lesions. Metastatic malignant neoplasm to liver 25828136 C78.7 CT scan of the abdomen and [...] patient is a candidate for radiation Nausea 991695047 R11.0 As needed Zofran and Phenergan prescribed [...] ons. Pain due t o neoplastic disease 5910392445 9102 G89.3 She is taking hydrocodon e [...] tab po every 3-4 hours instead. Anemia 774002914 D64.9 Right-side d colon mass concerning for malignancy . Will assess for any signs of iron deficiency . Hemoglobin previously 8.0. Concern for blood loss from colon mass. Patient reports dark stools. Labs on August 10, 2024 with hemoglobin slightly low at 11.9. She is receiving infusional iron as needed. Adopted 111490261 Z62.89 8 Patient is adopted and discussed hereditary gene panel. Patient does have family history of her son having bladder cancer. [facility] hereditary panel sent Hypokalemia 79473416 E87 .6 Currently taking for potassium 20 mEq daily. Will follow up labs. Mixed anxi ety and depressive disorder 906315057 F41.8 Patient returns on November 23, 2023. [...] reports depression has improved. Atopic conjunctivitis 23 5038437 H10.12 Conjunctiv itis due to Vectibix. This is improving. Iron defic iency anemia 99029204 D50.9 Receiving infusional iron as needed. Will continue to monitor. Insomnia 803294022 G47.0 0 Patient has had difficulty sleeping for most of her life. She has tried multiple medication s without relief. She is tried Mirtazapin e and lorazepam without improvemen t of insomnia. Discussed trying trazodone instead. Restless legs 46482588 G 25.81 Patient taking Requip for restless legs. Generalized rash 0872706 06 R21 Rash due to Vectibix. This has improved. Atrial fibrillation 7353 6004 I48.91 Patient has been diagnosed with congestive heart failure and atrial fibrillati on. She has been started on Coumadin. She is following with the Coumadin clinic at [facility]. Congestive heart failure 67936176 I50.9 Patient has been diagnosed with congestive heart failure. She has started lasix and is following with a cardiologi st. Cachexia 045345713 R64 Patient has had decreased appetite and weight loss. She is drinking nutritiona l supplement s. Discussed appetite stimulant. Patient previously refused. She has started on Megace. She does not like the taste of Megace. Discussed Megace tablets instead of liquid but patient declines at this time. Will continue to monitor History of deep vein thrombosis 737978857 Z86.718 Patient developed right lower extremity pain [...] repeat venous duplex. Drug therapy finding 309 061620 Z79.01 She continues on Coumadin due to a fib. She is following with the Coumadin clinic at [facility]. Internatio nal normalized ratio above reference range 980560707 R79.1 Patient returns on August 25, 2024. She is on Coumadin for atrial fibrillati on and her INR is elevated. She is going to the Coumadin Clinic for management . INR 8 today. She is going to hold Coumadin and contact Coumadin Clinic for directions today. Denies any bleeding at this time. Diarrhea 16635388 R19.7 Patient with increased diarrhea, nausea, and vomiting for the past 4 days. She is taking Imodium and Lomotil without relief. She has a history of C diff. Will order stool studies today. Will check stool for C diff today. Dehydration 80242076 E86 .0 Patient returns on September 02, [...] Member ID Bell Member ID Guarantor Name 09/02/2024 1 [place]IC[place]ICARE[place] Vicky Roblero [id number] Vicky Roblero 09/02/2024 2 [employer] (MEDICARE SUPPLEMENT) Vicky Roblero [id number] Vicky Roblero Notes Date Note Type Note Provider Name and Address Organization Details Recorded Time 09/02/2024 text/html 78 yo F returns for evaluation of metastatic colon cancer. Patient recently seen on February 17, 2023 in the emergency room at [facility] with abdominal pain. Patient reported [...] 8.2 hematocrit 29.0. MCV 67.9. Platelet count 465420. Normal cell differential. Low serum folate of [...] with metastatic colorectal cancer. Discussed chemotherapy with [place] based regimen with 5FU Leucovorin if [...] is following with the Coumadin clinic at [facility]. She is scheduled for cardiac [...] study published in September 2022 in the [place] Journal [facility] of combined Avastin therapy with [...] cycle. Will follow up. Hanna Snider PA-C [address], [place], [address], [facility] - [place] & [place] 09/02/2024 12:55:35 OBGyn Episode No OBEpisode recorded.
--- OUTSIDE RECORDS SUMMARY | 2024-09-08 21:05 | XMS_ITS | Continuity of Care Document ---
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 Plan of Treatment Reminders Order Date Submit Date Provider Last Modified By Organization Details Last Modified Time Details Appointments None recorded. Lab None recorded. Referral radiation oncologist referral 2024 025 [email or web address] Mary Valencia MD, [address] [place], [address], 5 08:24:10 Procedures None recorded. Surgeries None recorded. Imaging None recorded. Medication Orders None recorded. Patient TargetsNo targets recorded. Patient InstructionsNo instructions recorded. Reason for Referral Referring Physician: Parish Snider Hematology/Oncology, Encounter Date: 08/10/2024 Results Created Date Observation Date Name Description Value Unit Range Abnormal Flag Note LastModifiedBy Organization Detail LastModifiedTime 07/28/1907/28/2024 CT ABD pel w/ (IV [facility] ity Hospit al [address] [place] [address] Phone: Fax: Name: DESHAWN MCMAHAN Exam Date: 025 : 948 Age 78 years Gender : F Access ion: [id number] 2023 Physic jesus: PARISH PARKER Fac[place] ty: [facility] Fac[place] ty HSV: Outpat ient Exam: CT ABD PEL W/ (IV ^ ORAL) CT ABDOME N PELVIS WITH IV CONTRA ST 025 2:46 PM [facility] INDICA TION: Female , 78 [...] y of colon carcin rox. 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 Legall y authen ticate d by VAMSHI HALL 07-28 15:46: 13 CC'ed Logic: Orderi ng Provid er: DIGNA LUGO Attend ing Provid er: DIGNA LUGO Referr ing Provid er: DIGNA LUGO Admitt ing Provid er: DIGNA paulino[address] - Physical Therapy [address] [place] [address], [address], 07/29/2024 11:36:27 08/02/19 25 07/28/2024 CT, chest , w/ contr ast [facility] [address] [place] [address] Phone: Fax: Name: DESHAWN MCMAHAN Exam Date: 025 : 948 Age 78 years Gender : F Access ion: [id number] 2023 Physic jesus: PARISH PARKER Facili ty: [facility] Facili ty HSV: Outpat ient Exam: [...] you for referr ing DESHAWN MCMAHAN to [facility] it Hospit al. Legall y authen ticate d by AVIS ALBA IN 07-28 15:46: 34 CC'ed Logic: Orderi ng Provid er: DIGNA LUGO Attend ing Provid er: DIGNA LUGO Referr ing Provid er: DIGNA LUGO Admitt ing Provid er: DIGNA LUGO [address] - Physical Therapy [address] [facility], [place], [address], 08/01/2024 10:49:34 Result Notes None recorded. Problems Name Problem SNOMED Code Status Onset Date Resolution Date Notes Provider Name and Address Organization Details Recorded Time Headache 68934768 Active 2024 [email or web address] [facility] & [place] 5 10:27:12 Metastatic malignant neoplasm to liver 51109933 Active [address], [place], [address] , [facility] - [facility] & [place] 3 14:27:25 Mass of colon 422174362 Active [address], [place], [address] , [facility] - [facility] & [place] 3 14:27:30 Anemia 458350015 Active [address], [place], [address] , [facility] - [facility] & [place] 3 14:27:36 Nausea and vomiting 73076114 Active [address], [place], [address] , [facility] - [facility] & [place] 3 14:27:46 Unintentional weight loss 786230373 Active [address], [facility] [address] , [facility] - [facility] & [place] 3 16:13:07 Night sweats 67300374 Active [address], [facility] [address] , [facility] - [facility] & [place] 3 16:13:12 Problem Notes None recorded. Procedures Surgical History Date Name Laterality Status Provider Name and Address Organization Details Recorded Time 04/29/20 23 Venipuncture completed Parish Snider PA-C [address], [place], [address], [facility] & [place] 04/27/2023 15:05:29 04/15/20 23 Venipuncture completed Stephanie Maravilla [facility] & [place] 04/15/2023 15:24:55 hysterectomy completed Laurel Samules [facility] & [place] 03/11/2023 15:30:22 extraction of cataract completed Laurel Samuels [facility] & [place] 03/11/2023 15:30:36 excision of colon completed Neelammounika Carlyle [facility] & [place] 04/21/2023 11:32:07 Imaging Results None recorded. Procedure Notes None recorded. Medical Equipment None Reported. Allergies Allergen ID Allergen Name Allergen Category Reaction Reaction Severity Criticality Documentation Date Start Date Code Code System Note Provider Name and Address Organization Details Recorded Time 79855 tetracycl ine medicatio n hives Not available high 02/19/2023 51047 RxNorm Brandy Raheem [facility] & [place] 3 14:03:33 Medications Name Sig Start Date [...] Updated DateTime 5 162.56 cm 36 kg/m2 20190.4 g 97 [degF] 90 % 90 % 57 /min 18 /min 143 mm[Hg] 68 mm[Hg] Laurel Samuels [facility] & [place] 10:00:38 Social History Question Answer Notes LastModified by Organizat ion Details LastModified Time Tobacco Smoking Status Never Smoker Brandy yusuf [facility] & [place] 02/19/2023 14:02:59 What Is Your Level Of Alcohol Consumption? None [email or web address] Information not available 02/19/2023 What Is Your Level Of Caffeine Consumption? None [email or web address] Information not available 02/19/2023 What Was The Date Of Your Most Recent Tobacco Screening? 11/23/2023 [email or web address] Information not available 11/23/2023 Do You Use Any Illicit Or Recreational Drugs? No [email or web address] Information not available 02/19/2023 Has Tobacco Cessation Counseling Been Provided? No [email or web address] Information not available 07/13/2023 Do You Or Have You Ever Used Any Other Forms Of Tobacco Or Nicotine? No [email or web address] Information not available 02/19/2023 Sex: Unknown Functional Status None recorded. Mental Status None recorded. Family History Nothing Reported. Medical History No medical history recorded. Gynecological HistoryNo gynecological history recorded. Obstetrics History GPAL:G 0 P 0 0 0 0 Immunizations Vaccine Type Date Status Note Provider Nam e and Address Organization Details Recorded Time pneumococcal polysaccharide PPV23 7 completed Stephanie Maravilla [facility] & [place] 12/21/2023 09:56:34 Past Encounters Encounter ID Performer Location Encounter Start Date Encounter Closed Date Diagnosis/Indication Diagnosis SNOMED-CT Code Diagnosis ICD10 Code Diagnosis Note [id number] Parish Snider PA-C [facility] [address] [place] [address] 07/25/2024 10:19:02 07/25/2024 10:39:35 Malignant tumor of ascending colon 440723873 C18.2 CT scan of the abdomen and [...] 8.2 hematocrit 29.0. MCV 67.9. Platelet count 872615. Normal cell differenti al. Low serum folate [...] Vectibix today. Metastatic malignant neoplasm to liver 00320539 C78.7 CT scan of the abdomen and [...] Findings concerning for metastatic colon cancer. Nausea 085318237 R11.0 As needed Zofran and Phenergan prescribed . Discussed trying scopolamin e patches but her insurance wouldn't cover. She is taking Zofran with relief. Pain due t o neoplastic disease 8710467589 9102 G89.3 She is taking hydrocodon e 7.5 mg b.i.d. Discussed taking medication every 4-6 hours as needed. Anemia 545812956 D64.9 Right-side d colon mass concerning for malignancy . Will assess for any signs of iron deficiency . Hemoglobin previously 8.0. Concern for blood loss from colon mass. Patient reports dark stools. labs on July 25, 2024 with improvemen t of hemoglobin 12.6. Patient is currently receiving infusional iron. Adopted 350191501 Z62.89 8 Patient is adopted and discussed hereditary gene panel. Patient does have family history of her son having bladder cancer. Will send [facility] hereditary panel. Antineopla stic chemotherapy regimen 329817216 Z51.11 Week 1 5FU Leucovorin Vectibix on [...] Patient will not receive Vectibix today. Hypokalemia 88625549 E87 .6 Patient returns on April 29, 2023. Potassium is low at 2.9. Will send prescripti on for potassium 20 mEq daily. Will follow-up labs again next week. Deep venou s thrombosis 872149624 I82.409 Patient developed right lower extremity pain [...] duplex. 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 [...] reports depression has improved. Atopic conjunctivitis 23 6794038 H10.12 Patient with conjunctiv itis of the left eye. Held Vectibix on December 07, 2023. Continue with current therapy. Will follow up again in 2 weeks. Patient returns on July 25, 2024. She does have conjunctiv itis of the left eye. Will hold Vectibix today. Will follow up. Iron defic iency anemia 00159636 D50.9 Currently receiving infusional iron. Will continue to monitor. Insomnia 032414203 G47.0 0 Patient returns on February 08, 2024. She has had difficulty sleeping for most of her life. She has tried multiple medication s without relief. She is tried Mirtazapin e and lorazepam without improvemen t of insomnia. Discussed trying trazodone instead. Will send prescripti on. Will send prescripti on for Requip for restless legs. Restless legs 43419049 G 25.81 Patient returns on February 08, [...] with diflucan and nystain powder. Generalized rash 7347809 06 R21 Patient returns on May 30, [...] is following with the Coumadin clinic at [facility]. Congestive heart failure 37725063 I50.9 Patient returns on June 27, 2024. Since previous visit patient has been diagnosed with congestive heart failure and atrial fibrillati on. She has started lasix and is following with a cardiologi st. Cachexia 399067272 R64 Patient returns on July 25, 2024. Patient has had decreased appetite. Continues to lose weight. She has lost 4 more lbs since previous visit. She is drinking nutritiona l supplement s. Discussed appetite stimulant. Patient previously refused. Now she is agreeable to try Megace. Will send prescripti on. Will follow up for angela oakley [id number] Tomy King MD [facility] H[facility]olog [facility] [address] [place] [address] 08/01/2024 11:10:37 08/01/2024 12:30:43 Malignant tumor of ascending colon 163841704 C18.2 CT scan of the abdomen and [...] 8.2 hematocrit 29.0. MCV 67.9. Platelet count 168359. Normal cell differenti al. Low serum folate [...] study published in September 2022 in the [place] [facility] Medicine of combined Avastin therapy with [...] Will follow-up Metastatic malignant neoplasm to liver 91065155 C78.7 CT scan of the abdomen and [...] Findings concerning for metastatic colon cancer. Nausea 163661419 R11.0 As needed Zofran and Phenergan prescribed . Discussed trying scopolamin e patches but her insurance wouldn't cover. She is taking Zofran with relief. Pain due t o neoplastic disease 9096506152 9102 G89.3 She is taking hydrocodon e 7.5 mg b.i.d. Discussed taking medication every 4-6 hours as needed. Anemia 053875691 D64.9 Right-side d colon mass concerning for malignancy . Will assess for any signs of iron deficiency . Hemoglobin previously 8.0. Concern for blood loss from colon mass. Patient reports dark stools. labs on July 25, 2024 with improvemen t of hemoglobin 12.6. Patient is currently receiving infusional iron. Adopted 773648116 Z62.89 8 Patient is adopted and discussed hereditary gene panel. Patient does have family history of her son having bladder cancer. Will send [facility] hereditary panel. Antineopla stic chemotherapy regimen 683931111 Z51.11 Week 1 5FU Leucovorin Vectibix on [...] 2024 due to disease progressio n. Hypokalemia 43726812 E87 .6 Patient returns on April 29, 2023. Potassium is low at 2.9. Will send prescripti on for potassium 20 mEq daily. Will follow-up labs again next week. Deep venou s thrombosis 174835621 I82.409 Patient developed right lower extremity pain [...] duplex. Mixed anxi ety and depressive disorder 984348602 F41.8 Patient returns on November 23, 2023. [...] reports depression has improved. Atopic conjunctivitis 23 2487064 H10.12 Patient with conjunctiv itis of the left eye. Held Vectibix on December 07, 2023. Continue with current therapy. Will follow up again in 2 weeks. Patient returns on July 25, 2024. She does have conjunctiv itis of the left eye. Will hold Vectibix today. Will follow up. Iron defic iency anemia 19123285 D50.9 Currently receiving infusional iron. Will continue to monitor. Insomnia 774053137 G47.0 0 Patient returns on February 08, 2024. She has had difficulty sleeping for most of her life. She has tried multiple medication s without relief. She is tried Mirtazapin e and lorazepam without improvemen t of insomnia. Discussed trying trazodone instead. Will send prescripti on. Will send prescripti on for Requip for restless legs. Restless legs 24076565 G 25.81 Patient returns on February 08, [...] with diflucan and nystain powder. Generalized rash 6765999 06 R21 Patient returns on May 30, [...] is following with the Coumadin clinic at [facility]. Congestive heart failure 77685634 I50.9 Patient returns on June 27, 2024. Since previous visit patient has been diagnosed with congestive heart failure and atrial fibrillati on. She has started lasix and is following with a cardiologi st. Cachexia 076878719 R64 Patient returns on July 25, 2024. Patient has had decreased appetite. Continues to lose weight. She has lost 4 more lbs since previous visit. She is drinking nutritiona l supplement s. Discussed appetite stimulant. Patient previously refused. Now she is agreeable to try Megace. Will send prescripti on. Will follow up for angela oakley [id number] Parish Snider PA-C [facility] [address] [place] [address] 08/10/2024 09:37:37 08/10/2024 10:29:37 Malignant tumor of ascending colon 968674046 C18.2 CT scan of the abdomen and [...] 8.2 hematocrit 29.0. MCV 67.9. Platelet count 853063. Normal cell differenti al. Low serum folate [...] study published in September 2022 in the [place] Journal Medicine of combined Avastin therapy with [...] liver lesions. Metastatic malignant neoplasm to liver 57980268 C78.7 CT scan of the abdomen and [...] patient is a candidate for radiation Nausea 151612058 R11.0 As needed Zofran and Phenergan prescribed . Discussed trying scopolamin e patches but her insurance wouldn't cover. She is taking Zofran with relief. Pain due t o neoplastic disease 4043240342 9102 G89.3 She is taking hydrocodon e 7.5 mg b.i.d. Discussed taking medication every 4-6 hours as needed. Anemia 748338614 D64.9 Right-side d colon mass concerning for malignancy . Will assess for any signs of iron deficiency . Hemoglobin previously 8.0. Concern for blood loss from colon mass. Patient reports dark stools. Labs on August 10, 2024 with hemoglobin slightly low at 11.9. She is receiving infusional iron as needed. Adopted 713671506 Z62.89 8 Patient is adopted and discussed hereditary gene panel. Patient does have family history of her son having bladder cancer. [facility] hereditary panel sent Antineopla stic chemotherapy regimen 017478967 Z51.11 Week 1 5FU Leucovorin Vectibix on [...] monitor for tolerabili ty and toxicity. Hypokalemia 83974168 E87 .6 Currently taking for potassium 20 mEq daily. Will follow up labs. Mixed anxi ety and depressive disorder 411417973 F41.8 Patient returns on November 23, 2023. [...] reports depression has improved. Atopic conjunctivitis 23 2446378 H10.12 Conjunctiv itis due to Vectibix. This is improving. Iron defic iency anemia 96838507 D50.9 Currently receiving infusional iron as needed. Will continue to monitor. Insomnia 939883381 G47.0 0 Patient has had difficulty sleeping for most of her life. She has tried multiple medication s without relief. She is tried Mirtazapin e and lorazepam without improvemen t of insomnia. Discussed trying trazodone instead. Restless legs 16877933 G 25.81 Patient taking Requip for restless legs. Generalized rash 3650377 06 R21 Patient with rash due to Vectibix. This is improving. Atrial fibrillation 4943 6004 I48.91 Patient has been diagnosed with congestive heart failure and atrial fibrillati on. She has been started on Coumadin. She is following with the Coumadin clinic at [facility]. Congestive heart failure 67249427 I50.9 Patient has been diagnosed with congestive heart failure. She has started lasix and is following with a cardiologi . Cachexia 338698711 R64 Patient has had decreased appetite and weight loss. She is drinking nutritiona l supplement s. Discussed appetite stimulant. Patient previously refused. She has started on Megace. Will continue to monitor History of deep vein thrombosis 171218596 Z86.718 Patient developed right lower extremity pain [...] repeat venous duplex. Drug therapy finding 309 231178 Z79.01 She continues on Coumadin due to a fib. She is following with the Coumadin clinic at [facility]. Health Concerns Section Related Observation LastModified by Organization Detai ls LastModified Time None Recorded Concern Status LastModified by Organization Details LastModified Time None Recorded Payers Encounter Date Sequence Insurance Name Policy Number Policy Bell Covered Member ID Bell Member ID Guarantor Name 08/10/2024 1 [place] Deshawn Roblero [id number] Deshawn Roblero 08/10/2024 2 [employer] (MEDICARE SUPPLEMENT) Deshawn Roblero [id number] Deshawn Roblero Notes Date Note Type Note Provider Name and Address Organization Details Recorded Time 08/10/2024 text/html 78 yo F returns for evaluation of metastatic colon cancer. Patient recently seen on February 17, 2023 in the emergency room at [facility] with abdominal pain. Patient reported epigastric [...] 8.2 hematocrit 29.0. MCV 67.9. Platelet count 299327. Normal cell differential. Low serum folate of [...] with metastatic colorectal cancer. Discussed chemotherapy with [place] based regimen with 5FU Leucovorin if [...] is following with the Coumadin clinic at [facility]. She is scheduled for cardiac MRI. [...] study published in September 2022 in the [place] Journal Medicine of combined Avastin therapy with [...] for tolerability and toxicity. Parish Snider PA-C [address], [place], [address], [place] [facility] - [place] & [place] 08/10/2024 11:13:32 OBGyn Episode No OBEpisode recorded.
--- OUTSIDE RECORDS SUMMARY | 2024-09-08 21:05 | XMS_ITS | Continuity of Care Document ---
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 Plan of Treatment Reminders Order Date Submit Date Provider Last Modified By Organization Details Last Modified Time Details Appointments None recorded. Lab None recorded. Referral None recorded. Procedures None recorded. Surgeries None recorded. Imaging None recorded. Medication Orders megestrol 400 mg/10 mL (40 mg/mL) oral suspension 2024 025 [email or web address] 7 [facility] [id number], [address] [place], [address], 5 11:59:15 Patient TargetsNo targets recorded. Patient InstructionsNo instructions recorded. Reason for Referral None Reported. 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 * Status [...] Electr onical ly signed by: Rey Castaneda Thank you for referr ing DESHAWN MCMAHAN to [facility]. Legall y authen ticate d by VAMSHI HALL 07-28 15:46: 13 CC'ed Logic: Orderi ng Provid er: DIGNA LUGO Attend ing Provid er: DIGNA LUGO Referr ing Provid er: DIGNA LUGO Admitt ing Provid er: DIGNA taylor[address] [place] [address] - Physical Therapy [address] [place], [address], 07/29/2024 11:36:27 08/02/1907/28/2024 CT, chest , w/ contr ast [facility] [address] [place] [address] Phone: Fax: Name: DESHAWN MCMAHAN Exam Date: : 948 Age 78 years Gender : F Access ion: [id number] 2023 Physic jesus: PARISH PARKER Facili ty: [facility] Facili ty HSV: Outpat ient Exam: [...] recons tructi on techni que. COMPAR LON: Januar y 2023 CT chest. FINDIN GS: LUNGS: [...] you for referr ing DESHAWN MCMAHAN to [facility]. Legall y authen ticate d by AVIS ALBA IN 07-28 15:46: 34 CC'ed Logic: Orderi ng Provid er: DIGNA LUGO Attend ing Provid er: DIGNA LGUO Referr ing Provid er: DIGNA LUGO Admitt ing Provid er: [facility] - Physical Therapy [address] , [place], [address], 08/01/2024 10:49:34 Result Notes None recorded. Problems Name Problem SNOMED Code Status Onset Date Resolution Date Notes Provider Name and Address Organization Details Recorded Time Headache 73184828 Active 2024 Christine Farfan [email or web address], [place] - [facility] & [place] 5 10:27:12 Metastatic malignant neoplasm to liver 04418867 Active [address], [facility] [address] , [place] - [facility] & [place] 3 14:27:25 Mass of colon 561230728 [facility] [address] , [facility] - [facility] & [place] 3 14:27:30 Anemia 106146469 Active 2022 [address] [address] , [facility] - [facility] & [place] 3 14:27:36 Nausea and vomiting 76055922 Active 2022 [facility] [address] , [facility] & [place] 3 14:27:46 Unintentional weight loss 838110897 Active 2022 [address] [address] , [facility] - [facility] & [place] 3 16:13:07 Night sweats 29905867 [facility] 20[address] [facility] [address] , [facility] & [place] 3 16:13:12 Problem Notes None recorded. Procedures Surgical History Date Name Laterality Status Provider Name and Address Organization Details Recorded Time 04/29/20 [facility]ip[facility] [address], [place] [facility] & [place] 04/27/2023 15:05:29 04/15/20 23 Venipuncture completed Stephanie Maraivlla [facility] & [place] 04/15/2023 15:24:55 hysterectomy completed Laurel Samuels [facility] & [place] 03/11/2023 15:30:22 extraction of cataract completed Laurel ELIAS [facility] & [place] 03/11/2023 15:30:36 excision of colon completed Loree Tadeo [facility] & [place] 04/21/2023 11:32:07 Imaging Results None recorded. Procedure Notes None recorded. Medical Equipment None Reported. Allergies Allergen ID Allergen Name Allergen Category Reaction Reaction Severity Criticality Documentation Date Start Date Code Code System Note Provider Name and Address Organization Details Recorded Time 87059 tetracycl ine medicatio n hives Not available high 02/19/2023 32816 RxNorm Brandy Raheem [facility] CURT [facility] & [place] 3 14:03:33 Medications Name Sig Start Date [...] active Not Available Not Available Not Avai labcuong Nystop 100,000 unit/gram topical powder APPLY TOPICALLY [...] Updated DateTime 5 162.56 cm 35.2 kg/m2 88553.4 4 g 97.7 [degF] 60 /min 99 % 99 % 159 mm[Hg] 61 mm[Hg] Laurel Samuels [facility] & [place] 5 12:08:08 Social History Question Answer Notes LastModified by Organizat ion Details LastModified Time Tobacco Smoking Status Never Smoker CURT [facility] & [place] 02/19/2023 14:02:59 What Is Your Level Of Alcohol Consumption? None Information not available 02/19/2023 What Is Your Level Of Caffeine Consumption? None [email or web address] Information not available 02/19/2023 What Was The Date Of Your Most Recent Tobacco Screening? 11/23/2023 [email or web address] Information not available 11/23/2023 Do You Use Any Illicit Or Recreational Drugs? No [email or web address] Information not available 02/19/2023 Has Tobacco Cessation Counseling Been Provided? No [email or web address] Information not available 07/13/2023 Do You Or Have You Ever Used Any Other Forms Of Tobacco Or Nicotine? No Information not available 02/19/2023 Sex: Unknown Functional Status None recorded. Mental Status None recorded. Family History Nothing Reported. Medical History No medical history recorded. Gynecological HistoryNo gynecological history recorded. Obstetrics History GPAL:G 0 P 0 0 0 0 Immunizations Vaccine Type Date Status Note Provider Nam e and Address Organization Details Recorded Time pneumococcal polysaccharide PPV23 7 completed Stephanie Maravilla [facility] & [place] 12/21/2023 09:56:34 Past Encounters Encounter ID Performer Location Encounter Start Date Encounter Closed Date Diagnosis/Indication Diagnosis SNOMED-CT Code Diagnosis ICD10 Code Diagnosis Note [id number] Parish Snider PA-C [facility] [address] [place] [address] 07/11/2024 09:55:48 07/11/2024 10:53:23 Malignant tumor of ascending colon 481443208 C18.2 CT scan of the abdomen and [...] 8.2 hematocrit 29.0. MCV 67.9. Platelet count 019453. Normal cell differenti al. Low serum folate [...] up labs. Metastatic malignant neoplasm to liver 73497337 C78.7 CT scan of the abdomen and [...] Findings concerning for metastatic colon cancer. Nausea 291919595 R11.0 As needed Zofran and Phenergan prescribed . Discussed trying scopolamin e patches but her insurance wouldn't cover. She is taking Zofran with relief. Pain due t o neoplastic disease 5256231399 9102 G89.3 She is taking hydrocodon e 7.5 mg b.i.d. Discussed taking medication every 4-6 hours as needed. Anemia 861205589 D64.9 Right-side d colon mass concerning for malignancy . Will assess for any signs of iron deficiency . Most recent hemoglobin at 8.0. Concern for blood loss from colon mass. Patient reports dark stools. Adopted 681073379 Z62.89 8 Patient is adopted and discussed hereditary gene panel. Patient does have family history of her son having bladder cancer. Will send [facility] hereditary panel. Antineopla stic chemotherapy regimen 096871490 Z51.11 Week 1 5FU Leucovorin Vectibix on [...] 2024. Patient will receive Vectibix today. Hypokalemia 03728532 E87 .6 Patient returns on April 29, 2023. Potassium is low at 2.9. Will send prescripti on for potassium 20 mEq daily. Will follow-up labs again next week. Deep venou s thrombosis 925475783 I82.409 Patient developed right lower extremity pain [...] duplex. 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 [...] prescripti on for Cymbalta. Atopic conjunctivitis 23 5635267 H10.12 Patient with conjunctiv itis of the left eye. Held Vectibix on December 07, 2023. Continue with current therapy. Will follow up again in 2 weeks. Iron defic iency anemia 57097150 D50.9 Will follow up labs Insomnia 708379839 G47.0 0 Patient returns on February 08, 2024. She has had difficulty sleeping for most of her life. She has tried multiple medication s without relief. She is tried Mirtazapin e and lorazepam without improvemen t of insomnia. Discussed trying trazodone instead. Will send prescripti on. Will send prescripti on for Requip for restless legs. Restless legs 26586855 G 25.81 Patient returns on February 08, [...] patient has not received Vectibix. Generalized rash 4901321 06 R21 Patient returns on May 30, [...] [facility]. Congestive heart failure 52953672 I50.9 Patient returns on June 27, 2024. Since previous visit patient has been diagnosed with congestive heart failure and atrial fibrillati on. She has started lasix and is following with a cardiologi [facility] [id number] Jana España MD [facility] [address] [place] [address] 07/06/2024 10:53:43 07/08/2024 03:53:47 Seen by palliative care service 261124383 Z51.5 Introduced services today. Dtr and son would be NOK - she feels important to start thinking about completion of LW/AD- I provided copies today and will loop in [facility] for f/u and will plan to f/u on this is two weeks. Encouraged her to think about HCS/code status. Still wants to continue chemo and has scans next week - did not discuss hospice, but eligible at any point Pain due t o neoplastic disease 4866436006 9102 G89.3 Uncontroll ed, had lortab prescribed which manages pain well when she takes medication . Encouraged adherence. Mixed anxi ety and depressive disorder 367247629 F41.8 Uncontroll ed. Not taking cymbalta. Encouraged adherence and PRN ativan for breakthrou gh syptoms. Did not wish to pursue CBt at this time, will d/w Elsa for additional support options moving forward Nausea and vomiting 1693 1999 R11.2 Related to malignancy vs. Chemo. Improved with PRN and qAM zofran, likely related to chemo vs. malignancy Loss of appetite 4059041 6 R63.0 Related to malignancy . Not taking mirtazapin e. Does not want to add additional Rx at this itme or see nutritioni st. [id number] Parish Snider PA-C [facility] [address] [place] [address] 07/25/2024 10:19:02 07/25/2024 10:39:35 Malignant tumor of ascending colon 950148991 C18.2 CT scan of the abdomen and [...] 8.2 hematocrit 29.0. MCV 67.9. Platelet count 409156. Normal cell differenti al. Low serum folate [...] Vectibix today. Metastatic malignant neoplasm to liver 18243785 C78.7 CT scan of the abdomen and [...] Findings concerning for metastatic colon cancer. Nausea 598232504 R11.0 As needed Zofran and Phenergan prescribed . Discussed trying scopolamin e patches but her insurance wouldn't cover. She is taking Zofran with relief. Pain due t o neoplastic disease 7423925029 9102 G89.3 She is taking hydrocodon e 7.5 mg b.i.d. Discussed taking medication every 4-6 hours as needed. Anemia 505702804 D64.9 Right-side d colon mass concerning for malignancy . Will assess for any signs of iron deficiency . Hemoglobin previously 8.0. Concern for blood loss from colon mass. Patient reports dark stools. labs on July 25, 2024 with improvemen t of hemoglobin 12.6. Patient is currently receiving infusional iron. Adopted 265747261 Z62.89 8 Patient is adopted and discussed hereditary gene panel. Patient does have family history of her son having bladder cancer. Will send [facility] hereditary panel. Antineopla stic chemotherapy regimen 365127555 Z51.11 Week 1 5FU Leucovorin Vectibix on [...] Patient will not receive Vectibix today. Hypokalemia 16286002 E87 .6 Patient returns on April 29, 2023. Potassium is low at 2.9. Will send prescripti on for potassium 20 mEq daily. Will follow-up labs again next week. Deep venou s thrombosis 138036147 I82.409 Patient developed right lower extremity pain [...] duplex. Mixed anxi ety and depressive disorder 403641419 F41.8 Patient returns on November 23, 2023. [...] reports depression has improved. Atopic conjunctivitis 23 5929437 H10.12 Patient with conjunctiv itis of the left eye. Held Vectibix on December 07, 2023. Continue with current therapy. Will follow up again in 2 weeks. Patient returns on July 25, 2024. She does have conjunctiv itis of the left eye. Will hold Vectibix today. Will follow up. Iron defic iency anemia 90283876 D50.9 Currently receiving infusional iron. Will continue to monitor. Insomnia 422952687 G47.0 0 Patient returns on February 08, 2024. She has had difficulty sleeping for most of her life. She has tried multiple medication s without relief. She is tried Mirtazapin e and lorazepam without improvemen t of insomnia. Discussed trying trazodone instead. Will send prescripti on. Will send prescripti on for Requip for restless legs. Restless legs 67524464 G 25.81 Patient returns on February 08, [...] with diflucan and nystain powder. Generalized rash 6274630 06 R21 Patient returns on May 30, [...] [facility]. Congestive heart failure 16578013 I50.9 Patient returns on June 27, 2024. Since previous visit patient has been diagnosed with congestive heart failure and atrial fibrillati on. She has started lasix and is following with a cardiologi st. Cachexia 346377336 R64 Patient returns on July 25, 2024. Patient has had decreased appetite. Continues to lose weight. She has lost 4 more lbs since previous visit. She is drinking nutritiona l supplement s. Discussed appetite stimulant. Patient previously refused. Now she is agreeable to try Megace. Will send prescripti on. Will follow up for angela oakley [id number] Tomy King MD [facility] [address] [place] [address] 08/01/2024 11:10:37 08/01/2024 12:30:43 Malignant tumor of ascending colon 475534829 C18.2 CT scan of the abdomen and [...] 8.2 hematocrit 29.0. MCV 67.9. Platelet count 333950. Normal cell differenti al. Low serum folate [...] study published in September 2022 in the [place] [facility] Medicine of combined Avastin therapy with [...] Will follow-up Metastatic malignant neoplasm to liver 39981999 C78.7 CT scan of the abdomen and [...] Findings concerning for metastatic colon cancer. Nausea 811059914 R11.0 As needed Zofran and Phenergan prescribed . Discussed trying scopolamin e patches but her insurance wouldn't cover. She is taking Zofran with relief. Pain due t o neoplastic disease 7854591682 9102 G89.3 She is taking hydrocodon e 7.5 mg b.i.d. Discussed taking medication every 4-6 hours as needed. Anemia 292124751 D64.9 Right-side d colon mass concerning for malignancy . Will assess for any signs of iron deficiency . Hemoglobin previously 8.0. Concern for blood loss from colon mass. Patient reports dark stools. labs on July 25, 2024 with improvemen t of hemoglobin 12.6. Patient is currently receiving infusional iron. Adopted 422203989 Z62.89 8 Patient is adopted and discussed hereditary gene panel. Patient does have family history of her son having bladder cancer. Will send [facility] hereditary panel. Antineopla stic chemotherapy regimen 799350592 Z51.11 Week 1 5FU Leucovorin Vectibix on [...] 2024 due to disease progressio n. Hypokalemia 85108770 E87 .6 Patient returns on April 29, 2023. Potassium is low at 2.9. Will send prescripti on for potassium 20 mEq daily. Will follow-up labs again next week. Deep venou s thrombosis 278741115 I82.409 Patient developed right lower extremity pain [...] duplex. Mixed anxi ety and depressive disorder 260172849 F41.8 Patient returns on November 23, 2023. [...] reports depression has improved. Atopic conjunctivitis 23 9809849 H10.12 Patient with conjunctiv itis of the left eye. Held Vectibix on December 07, 2023. Continue with current therapy. Will follow up again in 2 weeks. Patient returns on July 25, 2024. She does have conjunctiv itis of the left eye. Will hold Vectibix today. Will follow up. Iron defic iency anemia 44547545 D50.9 Currently receiving infusional iron. Will continue to monitor. Insomnia 684201927 G47.0 0 Patient returns on February 08, 2024. She has had difficulty sleeping for most of her life. She has tried multiple medication s without relief. She is tried Mirtazapin e and lorazepam without improvemen t of insomnia. Discussed trying trazodone instead. Will send prescripti on. Will send prescripti on for Requip for restless legs. Restless legs 00311388 G 25.81 Patient returns on February 08, [...] with diflucan and nystain powder. Generalized rash 0089425 06 R21 Patient returns on May 30, [...] [facility]. Congestive heart failure 76879047 I50.9 Patient returns on June 27, 2024. Since previous visit patient has been diagnosed with congestive heart failure and atrial fibrillati on. She has started lasix and is following with a cardiologi Cachexia 354686012 R64 Patient returns on July 25, 2024. [...] Member ID Bell Member ID Guarantor Name 08/01/2024 1 [place]IC[place]ICARE[place] Deshawn Roblero [id number] Deshawn Roblero 08/01/2024 2 [employer] (MEDICARE SUPPLEMENT) Deshawn Roblero [id number] Deshawn Roblero Notes Date Note Type Note Provider Name and Address Organization Details Recorded Time 08/01/2024 text/html 78 yo F returns for evaluation of metastatic colon cancer. Patient recently seen on February 17, 2023 in the emergency room at [facility] with abdominal pain. Patient reported epigastric pain [...] 8.2 hematocrit 29.0. MCV 67.9. Platelet count 479565. Normal cell differential. Low serum folate of [...] with metastatic colorectal cancer. Discussed chemotherapy with [place] based regimen with 5FU Leucovorin if [...] study published in September 2022 in the [place] Journal Medicine of combined Avastin therapy with [place]. Phase 3 trial with median overall survival of 10.8 months in combination therapy verses 7.5 months L[place]urf alone. Progression-free survival 5.6 months versus 2.4 months in L[place]f alone therapy. Tomy King MD [address] [place], [place], [address], [place] - [facility] - [place] & [place] 08/01/2024 13:08:52 OBGyn Episode No OBEpisode recorded.
--- NOTE | 2024-09-09 11:57 | SW/DCPLANNER ---
Addendum entered by Amarilis Kc 09/09/24 13:46: [facility] able to accept patient and they stated that it would be first of next week before they can see the patient. Ayan Jones Original Note: Spoke with patients daughter yesterday on the phone and patients daughter had a question regarding getting her mom getting her blood checked since she has stopped chemo. Patients daughter spoke with Apolinar and daughter stated to Apolinar that she is interested in home health services for her mom. I phoned patients daughter today and spoke with her on the phone and she gave me verbal consent to send her moms information to home health agencies as long as it wasnt [facility]. Im going to fax patients info to [facility] and will update once i hear back if they can accept patient. Patient was discharged from the hospital on 09/07/24. Ayan Jones
== END 2024-09-07 17:30 | disposition home or self-care (01) ==
LOC: ER 10:38 → 2ND 15:37
PROVIDERS: Nurse Practitioner; Admitting Provider Student in an Organized Health Care Education/Training Program; Emergency Provider Emergency Medicine; PCP Pediatrics; Visit Provider Student in an Organized Health Care Education/Training Program
DX: N17.9 Acute kidney failure, unspecified (principal); R11.2 Nausea with vomiting, unspecified; T45.1X5A Adverse effect of antineoplastic and immunosuppressive drugs, initial encounter; C18.9 Malignant neoplasm of colon, unspecified; C78.7 Secondary malignant neoplasm of liver and intrahepatic bile duct; E87.1 Hypo-osmolality and hyponatremia; I48.0 Paroxysmal atrial fibrillation; R53.1 Weakness; E87.20 Acidosis, unspecified; R79.1 Abnormal coagulation profile; J18.8 Other pneumonia, unspecified organism; F41.9 Anxiety disorder, unspecified; F32.A Depression, unspecified; E66.9 Obesity, unspecified; Z68.34 Body mass index [BMI] 34.0-34.9, adult; Z66 Do not resuscitate; Z86.718 Personal history of other venous thrombosis and embolism; Z79.01 Long term (current) use of anticoagulants; Z86.711 Personal history of pulmonary embolism; Z95.818 Presence of other cardiac implants and grafts; Z79.899 Other long term (current) drug therapy; Z88.1 Allergy status to other antibiotic agents; Z79.891 Long term (current) use of opiate analgesic; Z99.89 Dependence on other enabling machines and devices; Z74.1 Need for assistance with personal care; Z92.21 Personal history of antineoplastic chemotherapy
CPT/HCPCS: 71045; 80048; 80053; 83735; 84100; 84484; 85025; 85610; 97163; 99285; G0378; J0456; J0696; J1642; J2270; J2405; J3430; J3480; J7030; J7050; J7120

== ENCOUNTER 2024-09-16 10:44 | Outpatient (CLI) | payer MEDICARE, SELFPAY ==
--- OUTSIDE RECORDS SUMMARY | 2024-09-16 10:47 | XMS_ITS | Continuity of Care Document ---
Author Organization [facility] Address [address] [place] [address] Care Team Providers Care Non Destructive Testing Supervisor Name Role Phone ADDY GONZALES General Surgeon CARLOS A COATS Primary Care Provider VERONIKA RIVER Technical Support Internship Assessment No assessment recorded. Plan of Treatment Reminders Order Date Submit Date Provider Last Modified By Organization Details Last Modified Time Details Appointments None recorded. Lab carcinoembr yonic Ag, quant, serum or plasma 2024 025 [email or web address] 6 [facility], [address] [place], [address], 5 09:07:03 CMP, serum or plasma 2024 025 [email or web address] [facility], [address] [place], [address], 5 11:45:06 CBC w/ diff 2024 025 [email or web address] 6 [facility], [address] [place], [address], 5 09:07:03 Referral None recorded. Procedures None recorded. Surgeries None recorded. Imaging None recorded. Medication Orders megestrol 400 mg/10 mL (40 mg/mL) oral suspension 2024 025 [id number], [address] [place], [address], 11:45:06 Patient TargetsNo targets recorded. Patient InstructionsNo instructions recorded. Reason for Referral None Reported. Results Created Date Observation Date Name Description Value Unit Range Abnormal Flag Note LastModifiedBy Organization Detail LastModifiedTime 07/28/1907/28/2024 CT ABD pel w/ (IV [facility] [address] [place] [address] Phone: Fax: Name: DESHAWN MCMAHAN Exam Date: : 948 Age 78 years Gender : F Access ion: [id number] 2023 Physic jesus: [facility] PARKERi ty: [facility] Facili ty HSV: Outpat ient Exam: CT ABD PEL W/ (IV ^ ORAL) CT ABDOME N PELVIS WITH IV CONTRA ST 025 2:46 PM RECORD [facility] INDICA TION: Female , 78 [...] gs compar e Februa ry 2023, 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 Legall y authen ticate d by VAMSHI HALL 07-28 15:46: 13 CC'ed Logic: Orderi ng Provid er: DIGNA LUGO Attend ing Provid er: DIGNA LUGO Referr ing Provid er: DIGNA LUGO Admitt ing Provid er: DIGNA taylor[address] [place] [address] - Physical Therapy [address] [facility], [place], [address], 07/29/2024 11:36:27 08/02/19 25 07/28/2024 CT, chest , w/ contr ast [facility] [address] [place] [address] Phone: Fax: Name: ANGELINA DIGGS DESHAWN Exam Date: 025 : 948 Age 78 years Gender : F Access ion: [id number] 2023 Physic jesus: PARISH PARKER Facili ty: [facility] Facili ty HSV: Outpat ient [...] Thank you [facility] Legall y authen ticate d by AVIS ALBA IN 07-28 15:46: 34 CC'ed Logic: Orderi ng Provid er: DIGNA LUGO Attend ing Provid er: DIGNA LUGO Referr ing Provid er: DIGNA LUGO Admitt ing Provid er: DIGNA LUGO [email or web address] [facility] - Physical Therapy [address], [place], [address], 08/01/2024 10:49:34 Result Notes None recorded. Problems Name Problem SNOMED Code Status Onset Date Resolution Date Notes Provider Name and Address Organization Details Recorded Time Headache 58718879 Active 2024 Christine Farfan [facility], [place] - [facility] & [place] 5 10:27:12 Metastatic malignant neoplasm to liver 45482544 Active 2022 Ghassan Lieberman PA-C [address], [place], [address] , [place] - [facility] & [place] 3 14:27:25 Mass of colon 844301478 Active 2022 Ghassan Lieberman PA-C [address], [place], [address] , [place] - [facility] & [place] 3 14:27:30 Anemia 074757856 Active 2022 Ghassan Lieberman PA-C [address], [place], [address] , [place] [facility] & [place] 3 14:27:36 Nausea and vomiting 78936528 Active 2022 Ghassan Lieberman PA-C [address], [place], [address] , [place] [facility] & [place] 3 14:27:46 Unintentional weight loss 039944736 Active 2022 Ghassan Lieberman PA-C [address], [place], [address] , [facility] & [place] 3 16:13:07 Night sweats 60102411 Active [address], [facility] [address] , [facility] & [place] 3 16:13:12 Problem Notes None recorded. Procedures Surgical History Date Name Laterality Status Provider Name and Address Organization Details Recorded Time 04/29/20 23 Venipuncture completed Parish Snider PA-C [address] , [place], [address], [facility] & [place] 04/27/2023 15:05:29 04/15/20 23 Venipuncture completed Stephanie Maarvilla [facility] & [place] 04/15/2023 15:24:55 hysterectomy completed Laurel Samuels [facility] & [place] 03/11/2023 15:30:22 extraction of cataract completed Laurelesvin Samuels [facility] & [place] 03/11/2023 15:30:36 excision of colon completed Loree Tadeo [facility] & [place] 04/21/2023 11:32:07 Imaging Results None recorded. Procedure Notes None recorded. Medical Equipment None Reported. Allergies Allergen ID Allergen Name Allergen Category Reaction Reaction Severity Criticality Documentation Date Start Date Code Code System Note Provider Name and Address Organization Details Recorded Time 56110 tetracycl ine medicatio n hives Not available high 02/19/2023 25735 RxNorm Brandytyler yusuf [facility] & [place] 3 14:03:33 Medications Name Sig Start Date [...] completed Not Available Not Available Not Available azithromyci n 250 mg tablet TAKE ONE TABLET BY MOUTH EVERY DAY FOR FOUR DAYS -- FINISH ALL MEDICINE -- start ON DAY 2 of therapy active Not Available Not Available No t Available fluconazole 150 mg tablet TAKE 1 [...] Not Available Not Available Not Avai lable ondansetron HCl 8 mg tablet TAKE 1 [...] Not Available Not Available No t Available oxycodone-a cetaminophe n 5 mg-325 mg tablet TAKE ONE TABLET BY MOUTH EVERY 6 HOURS NEEDED FOR PAIN FOR 5 DAYS MAY CAUSE DROWSINES S active Not Available Not Available No t [...] completed Not Available Not Available Not Available nystatin 100,000 unit/gram topical powder APPLY TO THE AFFECTED AREA(S) BY TOPICAL ROUTE 2 TIMES PER DAY, NEEDED 2024 active Not Available Not Available Not Avai lable lorazepam 1 mg tablet TAKE 1 TABLET [...] ondansetron 4 mg disintegrat ing tablet DISSOLVE 2 TABLETS BY MOUTH THREE TIMES DAILY NEEDED FOR NAUSEA AND VOMITING active Not Available Not Available No t Available cefdinir 300 mg capsule TAKE 1 CAPSULE BY MOUTH 2 TIMES A DAY 06/02 completed Not Available Not Available Not Available amoxicillin 500 mg-potassiu m clavulanate 125 mg tablet TAKE ONE TABLET BY MOUTH THREE TIMES DAILY FOR SIX DAYS -- FINISH ALL MEDICINE -- active Not Available Not Available No t Available oxycodone 5 mg tablet Take 1 tablet every 4-6 hours by oral route as needed. 2024 active Not Available Not Available Not Avai lable bisacodyl 5 mg tablet Take 1 tablet [...] Updated DateTime 5 162.56 cm 36 kg/m2 05853.4 g 98 [degF] 97 % 97 % 98 /min 132 mm[Hg] 72 mm[Hg] Akilah Fuentes [facility] & [place] 5 10:42:43 Social History Question Answer Notes LastModified by Organizat ion Details LastModified Time Tobacco Smoking Status Never Smoker Brandy yusuf [facility] & [place] 02/19/2023 14:02:59 What Is Your Level Of Alcohol Consumption? None [email or web address] Information not available 02/19/2023 What Is Your Level Of Caffeine Consumption? None [email or web address] Information not available 02/19/2023 What Was The Date Of Your Most Recent Tobacco Screening? 11/23/2023 [email or web address] Information not available 11/23/2023 Do You Use Any Illicit Or Recreational Drugs? No [email or web address] Information not available 02/19/2023 Has Tobacco Cessation Counseling Been Provided? No [email or web address] Information not available 07/13/2023 Do You Or Have You Ever Used Any Other Forms Of Tobacco Or Nicotine? No [email or web address] Information not available 02/19/2023 Sex: Unknown Functional Status None recorded. Mental Status None recorded. Family History Nothing Reported. Medical History No medical history recorded. Gynecological HistoryNo gynecological history recorded. Obstetrics History GPAL:G 0 P 0 0 0 0 Immunizations Vaccine Type Date Status Note Provider Nam e and Address Organization Details Recorded Time pneumococcal polysaccharide PPV23 7 completed Stephanie yusuf [facility] & [place] 12/21/2023 09:56:34 Past Encounters Encounter ID Performer Location Encounter Start Date Encounter Closed Date Diagnosis/Indication Diagnosis SNOMED-CT Code Diagnosis ICD10 Code Diagnosis Note [id number] Parish Snider PA-C [facility] [address] [place] [address] 06/27/2024 09:58:37 06/27/2024 10:53:58 Malignant tumor of ascending colon 788259240 C18.2 CT scan of the abdomen and [...] 8.2 hematocrit 29.0. MCV 67.9. Platelet count 560802. Normal cell differenti al. Low serum folate [...] is following with the Coumadin clinic at [facility]. She is scheduled for cardiac MRI. [...] up labs. Metastatic malignant neoplasm to liver 14671156 C78.7 CT scan of the abdomen and [...] Findings concerning for metastatic colon cancer. Nausea 626388647 R11.0 As needed Zofran and Phenergan prescribed . Discussed trying scopolamin e patches but her insurance wouldn't cover. Pain due t o neoplastic disease 6817161155 9102 G89.3 Right upper quadrant pain secondary to liver metastasis . Patient currently taking Tylenol. Discussed as needed oxycodone to limit Tylenol exposure. Anemia 304417554 D64.9 Right-side d colon mass concerning for malignancy . Will assess for any signs of iron deficiency . Most recent hemoglobin at 8.0. Concern for blood loss from colon mass. Patient reports dark stools. Adopted 520322442 Z62.89 8 Patient is adopted and discussed hereditary gene panel. Patient does have family history of her son having bladder cancer. Will send [facility] hereditary panel. Antineopla stic chemotherapy regimen 346138606 Z51.11 Week 1 5FU Leucovorin Vectibix on [...] Patient will receive not Vectibix today. Hypokalemia 72623751 E87 .6 Patient returns on April 29, 2023. Potassium is low at 2.9. Will send prescripti on for potassium 20 mEq daily. Will follow-up labs again next week. Deep venou s thrombosis 801716824 I82.409 Patient developed right lower extremity pain [...] duplex. Mixed anxi ety and depressive disorder 599941955 F41.8 Patient returns on November 23, 2023. [...] prescripti on for Cymbalta. Atopic conjunctivitis 23 0169065 H10.12 Patient with conjunctiv itis of the left eye. Held Vectibix on December 07, 2023. Continue with current therapy. Will follow up again in 2 weeks. Iron defic iency anemia 61765440 D50.9 Will follow up labs Insomnia 344764625 G47.0 0 Patient returns on February 08, 2024. She has had difficulty sleeping for most of her life. She has tried multiple medication s without relief. She is tried Mirtazapin e and lorazepam without improvemen t of insomnia. Discussed trying trazodone instead. Will send prescripti on. Will send prescripti on for Requip for restless legs. Restless legs 43901622 G 25.81 Patient returns on February 08, [...] patient has not received Vectibix. Generalized rash 6672206 06 R21 Patient returns on May 30, [...] is following with the Coumadin clinic at [facility]. Congestive heart failure 45384864 I50.9 Patient returns on June 27, 2024. Since previous visit patient has been diagnosed with congestive heart failure and atrial fibrillati on. She has started lasix and is following with a cardiologi st. [id number] Parish Snider PA-C [facility] [address] [place] [address] 07/11/2024 09:55:48 07/11/2024 10:53:23 Malignant tumor of ascending colon 537409337 C18.2 CT scan of the abdomen and [...] 8.2 hematocrit 29.0. MCV 67.9. Platelet count 724252. Normal cell differenti al. Low serum folate [...] up labs. Metastatic malignant neoplasm to liver 68949475 C78.7 CT scan of the abdomen and [...] Findings concerning for metastatic colon cancer. Nausea 247410712 R11.0 As needed Zofran and Phenergan prescribed . Discussed trying scopolamin e patches but her insurance wouldn't cover. She is taking Zofran with relief. Pain due t o neoplastic disease 3338396158 9102 G89.3 She is taking hydrocodon e 7.5 mg b.i.d. Discussed taking medication every 4-6 hours as needed. Anemia 458804399 D64.9 Right-side d colon mass concerning for malignancy . Will assess for any signs of iron deficiency . Most recent hemoglobin at 8.0. Concern for blood loss from colon mass. Patient reports dark stools. Adopted 572068984 Z62.89 8 Patient is adopted and discussed hereditary gene panel. Patient does have family history of her son having bladder cancer. Will send [facility] hereditary panel. Antineopla stic chemotherapy regimen 131870652 Z51.11 Week 1 5FU Leucovorin Vectibix on [...] 2024. Patient will receive Vectibix today. Hypokalemia 16403995 E87 .6 Patient returns on April 29, 2023. Potassium is low at 2.9. Will send prescripti on for potassium 20 mEq daily. Will follow-up labs again next week. Deep venou s thrombosis 725956504 I82.409 Patient developed right lower extremity pain [...] duplex. Mixed anxi ety and depressive disorder 175677402 F41.8 Patient returns on November 23, 2023. [...] prescripti on for Cymbalta. Atopic conjunctivitis 23 6465731 H10.12 Patient with conjunctiv itis of the left eye. Held Vectibix on December 07, 2023. Continue with current therapy. Will follow up again in 2 weeks. Iron defic iency anemia 76863738 D50.9 Will follow up labs Insomnia 008495087 G47.0 0 Patient returns on February 08, 2024. She has had difficulty sleeping for most of her life. She has tried multiple medication s without relief. She is tried Mirtazapin e and lorazepam without improvemen t of insomnia. Discussed trying trazodone instead. Will send prescripti on. Will send prescripti on for Requip for restless legs. Restless legs 06075490 G 25.81 Patient returns on February 08, [...] patient has not received Vectibix. Generalized rash 9891587 06 R21 Patient returns on May 30, [...] is following with the Coumadin clinic at [facility]. Congestive heart failure 31883518 I50.9 Patient returns on June 27, 2024. Since previous visit patient has been diagnosed with congestive heart failure and atrial fibrillati on. She has started lasix and is following with a cardiologi st. [id number] Jana España MD [facility] [address] [place] [address] 07/06/2024 10:53:43 07/08/2024 03:53:47 Seen by palliative care service 765454495 Z51.5 Introduced services today. Dtr and son would be NOK - she feels important to start thinking about completion of LW/AD- I provided copies today [facility] and will plan to f/u on this is two weeks. Encouraged her to think about HCS/code status. Still wants to continue chemo and has scans next week - did not discuss hospice, but eligible at any point Pain due t o neoplastic disease 9884131709 9102 G89.3 Uncontroll ed, had lortab prescribed which manages pain well when she takes medication . Encouraged adherence. Mixed anxi ety and depressive disorder 883136941 F41.8 Uncontroll ed. Not taking cymbalta. Encouraged adherence and PRN ativan for breakthrou gh syptoms. Did not wish to pursue CBt at this time, will d/w Elsa for additional support options moving forward Nausea and vomiting 1693 1999 R11.2 Related to malignancy vs. Chemo. Improved with PRN and qAM zofran, likely related to chemo vs. malignancy Loss of appetite 9816423 6 R63.0 Related to malignancy . Not taking mirtazapin e. Does not want to add additional Rx at this itme or see nutritioni st. [id number] Parish Snider PA-C [facility] [address] [place] [address] 07/25/2024 10:19:02 07/25/2024 10:39:35 Malignant tumor of ascending colon 562522309 C18.2 CT scan of the abdomen and [...] 8.2 hematocrit 29.0. MCV 67.9. Platelet count 062033. Normal cell differenti al. Low serum folate [...] Vectibix today. Metastatic malignant neoplasm to liver 21606344 C78.7 CT scan of the abdomen and [...] Findings concerning for metastatic colon cancer. Nausea 453202306 R11.0 As needed Zofran and Phenergan prescribed . Discussed trying scopolamin e patches but her insurance wouldn't cover. She is taking Zofran with relief. Pain due t o neoplastic disease 3500720122 9102 G89.3 She is taking hydrocodon e 7.5 mg b.i.d. Discussed taking medication every 4-6 hours as needed. Anemia 386210534 D64.9 Right-side d colon mass concerning for malignancy . Will assess for any signs of iron deficiency . Hemoglobin previously 8.0. Concern for blood loss from colon mass. Patient reports dark stools. labs on July 25, 2024 with improvemen t of hemoglobin 12.6. Patient is currently receiving infusional iron. Adopted 315023439 Z62.89 8 Patient is adopted and discussed hereditary gene panel. Patient does have family history of her son having bladder cancer. Will send [facility] hereditary panel. Antineopla stic chemotherapy regimen 348169028 Z51.11 Week 1 5FU Leucovorin Vectibix on [...] Patient will not receive Vectibix today. Hypokalemia 79855392 E87 .6 Patient returns on April 29, 2023. Potassium is low at 2.9. Will send prescripti on for potassium 20 mEq daily. Will follow-up labs again next week. Deep venou s thrombosis 314457363 I82.409 Patient developed right lower extremity pain [...] duplex. Mixed anxi ety and depressive disorder 823741955 F41.8 Patient returns on November 23, 2023. [...] reports depression has improved. Atopic conjunctivitis 23 7500225 H10.12 Patient with conjunctiv itis of the left eye. Held Vectibix on December 07, 2023. Continue with current therapy. Will follow up again in 2 weeks. Patient returns on July 25, 2024. She does have conjunctiv itis of the left eye. Will hold Vectibix today. Will follow up. Iron defic iency anemia 85202396 D50.9 Currently receiving infusional iron. Will continue to monitor. Insomnia 492400772 G47.0 0 Patient returns on February 08, 2024. She has had difficulty sleeping for most of her life. She has tried multiple medication s without relief. She is tried Mirtazapin e and lorazepam without improvemen t of insomnia. Discussed trying trazodone instead. Will send prescripti on. Will send prescripti on for Requip for restless legs. Restless legs 72417422 G 25.81 Patient returns on February 08, [...] with diflucan and nystain powder. Generalized rash 6764755 06 R21 Patient returns on May 30, [...] is following with the Coumadin clinic at [facility]. Congestive heart failure 23480351 I50.9 Patient returns on June 27, 2024. Since previous visit patient has been diagnosed with congestive heart failure and atrial fibrillati on. She has started lasix and is following with a cardiologi st. Cachexia 137028074 R64 Patient returns on July 25, 2024. Patient has had decreased appetite. Continues to lose weight. She has lost 4 more lbs since previous visit. She is drinking nutritiona l supplement s. Discussed appetite stimulant. Patient previously refused. Now she is agreeable to try Megace. Will send prescripti on. Will follow up for angela oak[facility] Concerns Section Related Observation LastModified by Organization Shonna ls LastModified Time None Recorded Concern Status LastModified by Organization Details LastModified Time None Recorded Payers Encounter Date Sequence Insurance Name Policy Number Policy Bell Covered Member ID Bell Member ID Guarantor Name 07/25/2024 1 [place] Deshawn Roblero [id number] Deshawn Roblero 07/25/2024 2 [employer] (MEDICARE SUPPLEMENT) Deshawn Roblero [id number] Deshawn Roblero Notes Date Note Type Note Provider Name and Address Organization Details Recorded Time 07/25/2024 text/html 78 yo F returns for evaluation of metastatic colon cancer. Patient recently seen on February 17, 2023 in the emergency room at [facility] with abdominal pain. Patient reported epigastric pain [...] 8.2 hematocrit 29.0. MCV 67.9. Platelet count 887849. Normal cell differential. Low serum folate of [...] with metastatic colorectal cancer. Discussed chemotherapy with [place] based regimen with 5FU Leucovorin if [...] is following with the Coumadin clinic at [facility]. She is scheduled for cardiac MRI. [...] Will follow up labs. Parish Snider PA-C [address], [place], [address], [place] - [facility] [place] & [place] 07/25/2024 11:22:44 OBGyn Episode No OBEpisode recorded.
--- OUTSIDE RECORDS SUMMARY | 2024-09-16 10:47 | XMS_ITS | Continuity of Care Document ---
Author Organization [facility] Address [address] [place] [address] Care Team Providers Care Licensed Esthetician Name Role Phone ADDY GONZALES General Surgeon CARLOS A COATS Primary Care Provider [phone] VERONIKA RIVER Campus Coordinator Assessment No assessment recorded. Plan of Treatment Reminders Order Date Submit Date Provider Last Modified By Organization Details Last Modified Time Details Appointments None recorded. Lab CBC w/ auto diff 2024 025 On license of [facility], [address] , [place], [address], 5 09:46:31 CMP, serum or plasma 2024 025 On license of [facility], [address] [place], [address], 5 09:39:00 carcinoembr yonic Ag, quant, serum or plasma 2024 025 [email or web address] [facility], [address] [place], [address], 5 09:16:06 Referral None recorded. Procedures None recorded. Surgeries None recorded. Imaging CT, head + brain, w/o contrast 2024 025 [facility] (Centralized Scheduling), [address] [place], [address], 5 09:16:16 Medication Orders None recorded. Patient TargetsNo targets recorded. Patient InstructionsNo instructions recorded. Reason for Referral None Reported. Results Created Date Observation Date Name Description Value Unit Range Abnormal Flag Note LastModifiedBy Organization Detail LastModifiedTime 07/28/19 25 07/28/2024 CT ABD pel w/ (IV [facility] [address] [place] [address] Phone: Fax: Name: DESHAWN MCMAHAN Exam Date: : 948 Age 78 years Gender : F Access ion: [id number] 2023 Physic jesus: [facility] ty: [facility] Facili ty HSV: Outpat ient Exam: CT ABD PEL W/ (IV ^ ORAL) CT ABDOME N PELVIS WITH IV CONTRA ST 025 2:46 PM [facility] INDICA TION: Female , 78 [...] gs compar e Februa ry 2023, 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 Legall y authen ticate d by VAMSHI HALL 0 07-28 15:46: 13 CC'ed Logic: Orderi ng Provid er: DIGNA LUGO Attend ing Provid er: DIGNA LUGO Referr ing Provid er: DIGNA LUGO Admitt ing Provid er: DIGNA taylor[address] [place] [address] - Physical Therapy [address] [place] [address], [place], [address], 07/29/2024 11:36:27 08/02/19 25 07/28/2024 CT, chest , w/ contr ast [facility] [address] [place] [address] Phone: Fax: Name: DESHAWN MCMAHAN Exam Date: : 948 Age 78 years Gender : F Access ion: [id number] 2023 Physic jesus: [facility] Facili ty: [place] Facili ty HSV: Outpat ient [...] Thank you for referr DESHAWN Delgado to [facility] Hospit al. Legall y authen ticate d by AVIS ALBA IN 07-28 15:46: 34 CC'ed Logic: Orderi ng Provid er: DIGNA LUGO Attend ing Provid er: DIGNA LUGO Referr ing Provid er: DIGNA LUGO Admitt ing Provid er: DIGNA LUGO [email or web address] [facility] - Physical Therapy [address], [place], [address], 08/01/2024 10:49:34 Result Notes None recorded. Problems Name Problem SNOMED Code Status Onset Date Resolution Date Notes Provider Name and Address Organization Details Recorded Time Headache 29292923 Active 2024 Christine Farfan [facility], [place] - [facility] - [place] & [place] 5 10:27:12 Metastatic malignant neoplasm to liver 23321307 Active 2022 Ghassan Lieberman PA-C [address], [place], [address] , [place] - [facility] - [place] & [place] 3 14:27:25 Mass of colon 219175998 Active 2022 Ghassan Lieberman PA-C [address], [place], [address] , [place] - [facility] - [place] & [place] 3 14:27:30 Anemia 594231753 Active 2022 Ghassan Lieberman PA-C [address], [place], [address] , [place] [facility] [place] & [place] 3 14:27:36 Nausea and vomiting 86234434 Active 2022 Ghassan Lieberman PA-C [address], [place], [address] , [place] - [facility] & [place] 3 14:27:46 Unintentional weight loss 235438376 Active [address], [place], [address] , [facility] & [place] 3 16:13:07 Night sweats 50446317 Active [address], [place], [address] , [facility] & [place] 3 16:13:12 Problem Notes None recorded. Procedures Surgical History Date Name Laterality Status Provider Name and Address Organization Details Recorded Time 04/29/20 23 Venipuncture completed [address], [place], [address], [facility] & [place] 04/27/2023 15:05:29 04/15/20 23 Venipuncture completed Stephanie Maravilla [facility] & [place] 04/15/2023 15:24:55 hysterectomy completed Laurel Samuels [facility] & [place] 03/11/2023 15:30:22 extraction of cataract completed Laurelesvin Samuels [facility] & [place] 03/11/2023 15:30:36 excision of colon completed Loree Tadeo [facility] & [place] 04/21/2023 11:32:07 Imaging Results None recorded. Procedure Notes None recorded. Medical Equipment None Reported. Allergies Allergen ID Allergen Name Allergen Category Reaction Reaction Severity Criticality Documentation Date Start Date Code Code System Note Provider Name and Address Organization Details Recorded Time 84200 tetracycl ine medicatio n hives Not available high 02/19/2023 70778 RxNorm [facility] [place] 3 14:03:33 Medications Name Sig Start Date [...] 3 times a day by topical route. 09/23/ 2024 active Not Available Not Available Not [...] Updated DateTime 5 162.56 cm 35.2 kg/m2 66867.4 4 g 97.5 [degF] 98 % 98 % 20 /min 83 /min 140 mm[Hg] 68 mm[Hg] Laurel Samuels [facility] & [place] 5 09:42:28 Social History Question Answer Notes LastModified by Organizat ion Details LastModified Time Tobacco Smoking Status Never Smoker Brandy yusuf [facility] & [place] 02/19/2023 14:02:59 What Is Your Level Of Alcohol Consumption? None [email or web address] Information not available 02/19/2023 What Is Your Level Of Caffeine Consumption? None [email or web address] Information not available 02/19/2023 What Was The Date Of Your Most Recent Tobacco Screening? 11/23/2023 [email or web address] Information not available 11/23/2023 Do You Use Any Illicit Or Recreational Drugs? No [email or web address] Information not available 02/19/2023 Has Tobacco Cessation Counseling Been Provided? No [email or web address] Information not available 07/13/2023 Do You Or Have You Ever Used Any Other Forms Of Tobacco Or Nicotine? No [email or web address] Information not available 02/19/2023 Sex: Unknown Functional Status None recorded. Mental Status None recorded. Family History Nothing Reported. Medical History No medical history recorded. Gynecological HistoryNo gynecological history recorded. Obstetrics History GPAL:G 0 P 0 0 0 0 Immunizations Vaccine Type Date Status Note Provider Nam e and Address Organization Details Recorded Time pneumococcal polysaccharide PPV23 7 completed Stephanie yusuf [facility] & [place] 12/21/2023 09:56:34 Past Encounters Encounter ID Performer Location Encounter Start Date Encounter Closed Date Diagnosis/Indication Diagnosis SNOMED-CT Code Diagnosis ICD10 Code Diagnosis Note [id number] Tomy King MD [facility] [address] [place] [address] 08/01/2024 11:10:37 08/01/2024 12:30:43 Malignant tumor of ascending colon 351936003 C18.2 CT scan of the abdomen and [...] 8.2 hematocrit 29.0. MCV 67.9. Platelet count 924435. Normal cell differenti al. Low serum folate [...] study published in September 2022 in the [place] [facility] of combined Avastin therapy with [...] Will follow-up Metastatic malignant neoplasm to liver 88392920 C78.7 CT scan of the abdomen and [...] Findings concerning for metastatic colon cancer. Nausea 513523024 R11.0 As needed Zofran and Phenergan prescribed . Discussed trying scopolamin e patches but her insurance wouldn't cover. She is taking Zofran with relief. Pain due t o neoplastic disease 7019861858 9102 G89.3 She is taking hydrocodon e 7.5 mg b.i.d. Discussed taking medication every 4-6 hours as needed. Anemia 093468843 D64.9 Right-side d colon mass concerning for malignancy . Will assess for any signs of iron deficiency . Hemoglobin previously 8.0. Concern for blood loss from colon mass. Patient reports dark stools. labs on July 25, 2024 with improvemen t of hemoglobin 12.6. Patient is currently receiving infusional iron. Adopted 882675292 Z62.89 8 Patient is adopted and discussed hereditary gene panel. Patient does have family history of her son having bladder cancer. Will send [facility] hereditary panel. Antineopla stic chemotherapy regimen 254477373 Z51.11 Week 1 5FU Leucovorin Vectibix on [...] 2024 due to disease progressio n. Hypokalemia 70661560 E87 .6 Patient returns on April 29, 2023. Potassium is low at 2.9. Will send prescripti on for potassium 20 mEq daily. Will follow-up labs again next week. Deep venou s thrombosis 279537062 I82.409 Patient developed right lower extremity pain [...] duplex. 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 [...] reports depression has improved. Atopic conjunctivitis 23 0901511 H10.12 Patient with conjunctiv itis of the left eye. Held Vectibix on December 07, 2023. Continue with current therapy. Will follow up again in 2 weeks. Patient returns on July 25, 2024. She does have conjunctiv itis of the left eye. Will hold Vectibix today. Will follow up. Iron defic iency anemia 31705385 D50.9 Currently receiving infusional iron. Will continue to monitor. Insomnia 564088103 G47.0 0 Patient returns on February 08, 2024. She has had difficulty sleeping for most of her life. She has tried multiple medication s without relief. She is tried Mirtazapin e and lorazepam without improvemen t of insomnia. Discussed trying trazodone instead. Will send prescripti on. Will send prescripti on for Requip for restless legs. Restless legs 36441987 G 25.81 Patient returns on February 08, [...] with diflucan and nystain powder. Generalized rash 7880792 06 R21 Patient returns on May 30, [...] is following with the Coumadin clinic at [facility]. Congestive heart failure 71194681 I50.9 Patient returns on June 27, 2024. Since previous visit patient has been diagnosed with congestive heart failure and atrial fibrillati on. She has started lasix and is following with a cardiologi st. Cachexia 363371868 R64 Patient returns on July 25, 2024. Patient has had decreased appetite. Continues to lose weight. She has lost 4 more lbs since previous visit. She is drinking nutritiona l supplement s. Discussed appetite stimulant. Patient previously refused. Now she is agreeable to try Megace. Will send prescripti on. Will follow up for angela oakley [id number] Parish Snider PA-C [facility] [address] [place] [address] 08/10/2024 09:37:37 08/10/2024 10:29:37 Malignant tumor of ascending colon 239129383 C18.2 CT scan of the abdomen and [...] 8.2 hematocrit 29.0. MCV 67.9. Platelet count 754333. Normal cell differenti al. Low serum folate [...] study published in September 2022 in the [place] [facility] of combined Avastin therapy with [...] liver lesions. Metastatic malignant neoplasm to liver 55107995 C78.7 CT scan of the abdomen and [...] patient is a candidate for radiation Nausea 543833826 R11.0 As needed Zofran and Phenergan prescribed . Discussed trying scopolamin e patches but her insurance wouldn't cover. She is taking Zofran with relief. Pain due t o neoplastic disease 4807612433 9102 G89.3 She is taking hydrocodon e 7.5 mg b.i.d. Discussed taking medication every 4-6 hours as needed. Anemia 719580833 D64.9 Right-side d colon mass concerning for malignancy . Will assess for any signs of iron deficiency . Hemoglobin previously 8.0. Concern for blood loss from colon mass. Patient reports dark stools. Labs on August 10, 2024 with hemoglobin slightly low at 11.9. She is receiving infusional iron as needed. Adopted 715077693 Z62.89 8 Patient is adopted and discussed hereditary gene panel. Patient does have family history of her son having bladder cancer. [facility] hereditary panel sent Antineopla stic chemotherapy regimen 584304984 Z51.11 Week 1 5FU Leucovorin Vectibix on [...] monitor for tolerabili ty and toxicity. Hypokalemia 04763171 E87 .6 Currently taking for potassium 20 mEq daily. Will follow up labs. Mixed anxi ety and depressive disorder 026089635 F41.8 Patient returns on November 23, 2023. [...] reports depression has improved. Atopic conjunctivitis 23 6430122 H10.12 Conjunctiv itis due to Vectibix. This is improving. Iron defic iency anemia 10113360 D50.9 Currently receiving infusional iron as needed. Will continue to monitor. Insomnia 839623684 G47.0 0 Patient has had difficulty sleeping for most of her life. She has tried multiple medication s without relief. She is tried Mirtazapin e and lorazepam without improvemen t of insomnia. Discussed trying trazodone instead. Restless legs 26660818 G 25.81 Patient taking Requip for restless legs. Generalized rash 1978640 06 R21 Patient with rash due to Vectibix. This is improving. Atrial fibrillation 4943 6004 I48.91 Patient has been diagnosed with congestive heart failure and atrial fibrillati on. She has been started on Coumadin. She is following with the Coumadin clinic at [facility]. Congestive heart failure 42852935 I50.9 Patient has been diagnosed with congestive heart failure. She has started lasix and is following with a cardiologi st. Cachexia 680083916 R64 Patient has had decreased appetite and weight loss. She is drinking nutritiona l supplement s. Discussed appetite stimulant. Patient previously refused. She has started on Megace. Will continue to monitor History of deep vein thrombosis 743298038 Z86.718 Patient developed right lower extremity pain [...] repeat venous duplex. Drug therapy finding 309 998443 Z79.01 She continues on Coumadin due to a fib. She is following with the Coumadin clinic at [facility]. [id number] [facility] [address] [place] [address] 08/25/2024 09:02:23 08/25/2024 09:51:52 Antineoplastic chemotherapy regimen 374246483 Z51.11 Week 1 5FU Leucovorin Vectibix on [...] and toxicity. Malignant tumor of ascending colon 248523580 C18.2 CT scan of the abdomen and [...] 8.2 hematocrit 29.0. MCV 67.9. Platelet count 069459. Normal cell differenti al. Low serum folate [...] study published in September 2022 in the [place] [facility] of combined Avastin therapy with [...] liver lesions. Metastatic malignant neoplasm to liver 85005127 C78.7 CT scan of the abdomen and [...] patient is a candidate for radiation Nausea 864064357 R11.0 As needed Zofran and Phenergan prescribed . Discussed trying scopolamin e patches but her insurance wouldn't cover. She is taking Zofran with relief. Pain due t o neoplastic disease 6215362638 9102 G89.3 She is taking hydrocodon e [...] does take her current medication s Anemia 980324385 D64.9 Right-side d colon mass concerning for malignancy . Will assess for any signs of iron deficiency . Hemoglobin previously 8.0. Concern for blood loss from colon mass. Patient reports dark stools. Labs on August 10, 2024 with hemoglobin slightly low at 11.9. She is receiving infusional iron as needed. Adopted 099702144 Z62.89 8 Patient is adopted and discussed hereditary gene panel. Patient does have family history of her son having bladder cancer. [facility] hereditary panel sent Hypokalemia 07162072 E87 .6 Currently taking for potassium 20 mEq daily. Will follow up labs. Mixed anxi ety and depressive disorder 857499499 F41.8 Patient returns on November 23, 2023. [...] reports depression has improved. Atopic conjunctivitis 23 6219581 H10.12 Conjunctiv itis due to Vectibix. This is improving. Iron defic iency anemia 73437853 D50.9 Receiving infusional iron as needed. Will continue to monitor. Insomnia 906272902 G47.0 0 Patient has had difficulty sleeping for most of her life. She has tried multiple medication s without relief. She is tried Mirtazapin e and lorazepam without improvemen t of insomnia. Discussed trying trazodone instead. Restless legs 52053169 G 25.81 Patient taking Requip for restless legs. Generalized rash 2848500 06 R21 Rash due to Vectibix. This has improved. Atrial fibrillation 9159 8044 I48.91 Patient has been diagnosed with congestive heart failure and atrial fibrillati on. She has been started on Coumadin. She is following with the Coumadin clinic at [facility]. Congestive heart failure 06045959 I50.9 Patient has been diagnosed with congestive heart failure. She has started lasix and is following with a cardiologi . Cachexia 424467560 R64 Patient has had decreased appetite and weight loss. She is drinking nutritiona l supplement s. Discussed appetite stimulant. Patient previously refused. She has started on Megace. She does not like the taste of Megace. Discussed Megace tablets instead of liquid but patient declines at this time. Will continue to monitor History of deep vein thrombosis 362450553 Z86.718 Patient developed right lower extremity pain [...] repeat venous duplex. Drug therapy finding 309 406529 Z79.01 She continues on Coumadin due to a fib. She is following with the Coumadin clinic at [facility]. Acute post traumatic headache 9876201852 98450 G44.319 Patient returns on August 25, 2024. [...] Internatio nal normalized ratio above reference range 293518572 R79.1 Patient returns on August 25, 2024. [...] Name 08/25/2024 1 [place] Deshawn Roblero [id number] Deshawn Roblero 08/25/2024 2 [employer] (MEDICARE SUPPLEMENT) Deshawn Roblero [id number] Deshawn Roblero Notes Date Note Type Note [...] 8.2 hematocrit 29.0. MCV 67.9. Platelet count 163553. Normal cell differential. Low serum folate of [...] with metastatic colorectal cancer. Discussed chemotherapy with [place] based regimen with 5FU Leucovorin if [...] is following with the Coumadin clinic at [facility]. She is scheduled for cardiac MRI. Patient [...] study published in September 2022 in the [place] [facility] of combined Avastin therapy with [...] for tolerability and toxicity. Parish Snider PA-C [address], [place], [address], [facility] - [place] & [place] 08/25/2024 10:43:13 OBGyn Episode No OBEpisode recorded.
[2024-09-16 11:06] LABS: PHA INR Fingerstick 1.1 (0.9-1.1)
== END 2024-09-16 11:08 ==
LOC: ACC 10:45
PROVIDERS: PCP Nurse Practitioner Family; Visit Provider Physician Assistant
DX: Z79.01 Long term (current) use of anticoagulants (principal); I48.91 Unspecified atrial fibrillation
CPT/HCPCS: 85610; 99211; G0463

== ENCOUNTER 2024-09-19 13:03 | Observation (INO) | payer MEDICARE, SELFPAY ==
[2024-09-19] VITALS (16 sets, daily range): BP systolic 86–158; BP diastolic 45–142; PULSE 56–82; RESP 14–22; TEMP 36.8–37.2; O2SAT 91–100; BMI 36.3; BMI 36.9
--- NOTE | 2024-09-19 13:05 | ED_ITS ---
<Statement entered by Laura Sharif MD - 09/22/24 22:38> I was consulted by the KYLIE, and we discussed the complexity of the problems being addressed. I approved the treatment and management plan for this patient's care in the emergency department, thus performing a substantive portion of the medical decision making. Laura Sharif MD, LONNY, FACEP Discharge Plan Disposition Patient Disposition: Admitted Condition: Fair Prescriptions Prescriptions: No Action folic acid 1 mg tablet 1 mg PO DAILY magnesium oxide 400 mg magnesium tablet 400 mg PO DAILY potassium chloride 20 mEq tablet extended release 20 meq PO DAILY Patient Comments: TAKE 1 TABLET BY MOUTH EVERY DAY DIRECTED duloxetine 30 mg capsule,delayed release(DR/EC) 30 mg PO DAILY Patient Comments: TAKE 1 CAPSULE BY MOUTH EVERY DAY metoprolol succinate 50 mg tablet extended release 24 hr 50 mg PO HS Qty: 30 5RF warfarin 1 mg Tablet 1 mg PO DAILY famotidine 20 mg tablet 20 mg PO BID Patient Comments: TAKE 1 TABLET BY MOUTH 2 TIMES A DAY ropinirole 0.5 mg tablet 0.5 mg PO TID Patient Comments: TAKE 1 TABLET BY MOUTH 3 TIMES A DAY metoclopramide HCl 5 mg tablet 5 mg PO TID Patient Comments: TAKE 1 TABLET BY MOUTH 3 TIMES A DAY NEEDED lorazepam 1 mg tablet 1 mg PO TID PRN (Reason: Nausea) Patient Comments: TAKE 1 TABLET BY MOUTH 3 TIMES A DAY NEEDED FOR NAUSEA morphine 15 mg tablet 15 mg PO Q4-6H PRN (Reason: Pain) Patient Comments: TAKE 1 TABLET BY MOUTH EVERY 3 TO 4 HOURS NEEDED diphenoxylate-atropine 2.5-0.025 mg tablet 1 tab PO TID PRN (Reason: Abdominal Discomfort) Patient Comments: TAKE 1 TABLET BY MOUTH 4 TIMES A DAY NEEDED oxycodone-acetaminophen [Percocet] 5-325 mg tablet 1 tab PO Q6H PRN (Reason: pain) 5 Days Qty: 20 0RF amoxicillin-pot clavulanate [Augmentin] 500-125 mg tablet 1 tab PO TID 6 Days Qty: 18 0RF azithromycin 250 mg tablet 250 mg PO DAILY 4 Days Qty: 4 0RF Rx Instructions: start on day 2 of therapy ondansetron 4 mg tablet,disintegrating 8 mg PO TID PRN (Reason: nausea and vomiting) 5 Days Qty: 15 0RF Referrals Follow up/Referrals: Amarilis Nolan APRN [Primary Care Provider] - See instructions Clinical Impressions Clinical Impression: Acute exacerbation of chronic heart failure Print Language Print Language: Macedonian Discharge ED Provider: Andi Loya Adult HPI General Chief complaint: Shortness of Breath/Dyspnea Stated complaint: Poss. fluid in lung, SOB Time Seen by Provider: 09/19/24 13:05 History of Present Illness HPI narrative: Patient presents for evaluation of dyspnea. 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 During that admission some discussion was had regarding hospice care however ultimately no decision was made however patient has stopped all cancer treatment and wants no further aggressive care. She gives a history of a 10 pound weight gain since discharge from the hospital increasing dyspnea even at rest. She also states that she has had more swelling in her right lower extremity and painful calf with dorsi flexion but no redness chest pain fever chills hemoptysis hematochezia melena nausea vomiting diarrhea. Patient did have her INR drawn on Thursday and it was subtherapeutic at 1.1. Related Data Home Medications ?Medication ?Instructions ?Recorded ?Confirmed folic acid 1 mg tablet 1 mg PO DAILY 06/24/24 09/19/24 magnesium oxide 400 mg PO DAILY 06/24/24 09/19/24 duloxetine 30 mg capsule,delayed 30 mg PO DAILY 07/14/24 09/19/24 release potassium chloride 20 mEq 20 meq PO DAILY 07/14/24 09/19/24 tablet,extended release famotidine 20 mg tablet 20 mg PO BID 09/06/24 09/19/24 warfarin 1 mg tablet 1 mg PO DAILY 09/06/24 09/19/24 diphenoxylate-atropine 2.5 1 tab PO TID PRN Abdominal 09/07/24 09/19/24 mg-0.025 mg tablet Discomfort lorazepam 1 mg tablet 1 mg PO TID PRN Nausea 09/07/24 09/19/24 metoclopramide HCl 5 mg tablet 5 mg PO TID 09/07/24 09/19/24 morphine 15 mg immediate release 15 mg PO Q4-6H PRN Pain 09/07/24 09/19/24 tablet ropinirole 0.5 mg tablet 0.5 mg PO TID 09/07/24 09/19/24 Previous Rx's ?Medication ?Instructions ?Recorded metoprolol succinate 50 mg 50 mg PO HS #30 tabs 07/14/24 tablet,extended release 24 hr amoxicillin 500 mg-potassium 1 tab PO TID 6 days #18 tabs 09/07/24 clavulanate 125 mg tablet (Augmentin) azithromycin 250 mg tablet 250 mg PO DAILY 4 days #4 tabs 09/07/24 ondansetron 4 mg disintegrating 8 mg (2 x 4 mg) PO TID PRN nausea 09/07/24 tablet and vomiting 5 days #15 tabs oxycodone-acetaminophen 5 mg-325 1 tab PO Q6H PRN pain 5 days #20 09/07/24 mg tablet (Percocet) tabs Allergies Allergy/AdvReac Type Severity Reaction Status Date / Time tetracycline Allergy Rash Verified 09/19/24 14:19 [facility] Disclaimer: The information contained in this section may have been updated after the patient was seen, as this information can be updated by other users. Medical History Hx of deep venous thrombosis Hx pulmonary embolism Interatrial cardiac shunt PAF (paroxysmal atrial fibrillation) Palpitations Colon cancer metastasized to liver Social History Smoking Status: Never smoker alcohol intake: never current occupational status: other Travel in the last 8 weeks: None Have you lived/traveled outside [place] in past 30 days?: No Contact w/someone who lives/traveled outside [place] past 30 days?: No Exposure to someone with infectious disease in past 14 days?: No Do you have a fever (greater than 100.4 F or 38 C)?: No Have you tested positive for COVID-19: No Exposed to someone with COVID-19 in past 14 days?: No Do you have a sore throat?: No Do you have a cough?: No Do you have any weakness?: Yes Do you have any diarrhea?: No Are you experiencing any unusual bleeding?: No Do you have any muscle aches/pain?: No Do you have any abdominal pain?: No Are you experiencing loss of taste or smell?: No Other Medical History Have you received the Flu Vaccine for this season: No Have you received the Pneumonia Vaccine: No ROS Obtained: Yes Systems reviewed as appropriate & no additional complaints except as documented Physical Exam General General appearance: alert and in no apparent distress Respiratory Respiratory exam: Present normal lung sounds bilaterally Cardiovascular Cardiovascular exam: Present regular rate Neurological Exam Neurological exam: Present alert and oriented X3 Medical Decision Making Medical Records Medical records reviewed: Yes I reviewed the patient's medical records. Screening: Per USPSTF and CDC recommendations, given the prevalence of disease in our region, it is our hospital?s policy to screen for HIV and viral Hepatitis for all patients aged 18 and over and those with ongoing risk factors. [place] Inquiry Pt receiving controlled substance: No Vital Signs: 09/19/24 13:23 09/19/24 13:31 09/19/24 14:00 Temperature 98.6 F Temperature Source Oral Pulse Rate 78 59 L Pulse Rate [Right] 74 Respiratory Rate 19 17 17 Blood Pressure 110/59 L 112/57 L Blood Pressure [Right Arm] 101/83 L Blood Pressure Mean 93 75 Blood Pressure Mean [Right Arm] 89 Blood Pressure Source [Right Arm] Automatic Cuff Blood Pressure Position [Right Arm] Supine 02 Sat by Pulse Oximetry 97 96 94 L Oxygen Delivery Method Room Air 09/19/24 14:31 09/19/24 15:01 09/19/24 15:31 Temperature Temperature Source Pulse Rate 69 66 64 Pulse Rate [Right] Respiratory Rate 14 22 14 Blood Pressure 109/68 L 96/51 L 99/46 L Blood Pressure [Right Arm] Blood Pressure Mean Blood Pressure Mean [Right Arm] Blood Pressure Source [Right Arm] Blood Pressure Position [Right Arm] 02 Sat by Pulse Oximetry 100 95 98 Oxygen Delivery Method Room Air Room Air Room Air 09/19/24 16:01 09/19/24 16:31 09/19/24 17:01 Temperature Temperature Source Pulse Rate 75 56 L 76 Pulse Rate [Right] Respiratory Rate 14 18 17 Blood Pressure 113/45 L 121/54 L 86/71 L Blood Pressure [Right Arm] Blood Pressure Mean Blood Pressure Mean [Right Arm] Blood Pressure Source [Right Arm] Blood Pressure Position [Right Arm] 02 Sat by Pulse Oximetry 97 91 L 98 Oxygen Delivery Method Room Air Room Air Room Air 09/19/24 17:30 Temperature Temperature Source Pulse Rate 75 Pulse Rate [Right] Respiratory Rate 14 Blood Pressure 158/142 H Blood Pressure [Right Arm] Blood Pressure Mean Blood Pressure Mean [Right Arm] Blood Pressure Source [Right Arm] Blood Pressure Position [Right Arm] 02 Sat by Pulse Oximetry 99 Oxygen Delivery Method Room Air Lab Data Lab results reviewed: Yes I reviewed the patient's lab results. Lab Results 09/19/24 13:30: WBC 7.2, RBC 2.93 L, Hgb 8.5 L, Hct 26.5 L, MCV 90.4, MCH 29.0, MCHC 32.1, RDW 18.4 H, Plt Count 280, MPV 9.7, Neut % (Auto) 65.6, Lymph % (Auto) 22.3, Luna % (Auto) 7.9, Eos % (Auto) 1.5, Baso % (Auto) 1.7, Neut # (Auto) 4.7, Lymph # (Auto) 1.6, Luna # (Auto) 0.6, Eos # (Auto) 0.1, Baso # (Auto) 0.1, PT 11.8, INR 1.06, Sodium 136, Potassium 3.7, Chloride 102, Carbon Dioxide 27, Anion Gap 10.7, BUN 12, Creatinine 0.90, Estimated Creat Clear 70, Estimated GFR 61, Est GFR ( Amer) 74, Glucose 134 H, Calcium 8.1 L, Total Bilirubin 0.4, AST 37 H, ALT 20, Alkaline Phosphatase 171 H, NT-Pro-B Natriuret Pep 2010 H, Total Protein 5.7 L, Albumin 2.6 L, Globulin 3.1, Albumin/Globulin Ratio 0.8 L, Procalcitonin 0.196 09/19/24 13:30 09/19/24 13:30 Orders (Tests/Meds): ED MEDICATIONS Generic Name Dose Route Start Last Admin Trade Name Freq PRN Reason Stop Dose Admin Sodium Chloride 10 ml 09/19/24 16:18 09/19/24 16:20 Sodium Chloride 0.9% 10ml Syr (Rad Only) IV 10/19/24 16:17 10 ml NEEDED PRN Administration Maintain IV Site Discontinued Medications Generic Name Dose Route Start Last Admin Trade Name Freq PRN Reason Stop Dose Admin Iopamidol 70 ml 09/19/24 16:18 09/19/24 16:20 Iopamidol-370 (76%);100ml Bottle IV 09/19/24 16:19 70 ml ONCE ONE Administration Sodium Chloride 50 ml 09/19/24 16:18 09/19/24 16:20 0.9 % Sodium Chloride 50 Ml Vial IV 09/19/24 16:19 50 ml ONCE ONE Administration ORDERS Category Date Time Status CT abdomen pelvis wo con Stat Cat Scan 09/19/24 13:[address] angio chest PE protocol Stat Cat Scan 09/19/24 16:[address] chest wo con Stat Cat Scan 09/19/24 13:19 Completed BNP [NT Pro Brain Natriuretic Pep.] Stat Lab 09/19/24 13:30 Completed CBC w/Auto Diff [Complete Blood Count Auto Diff] Stat Lab 09/19/24 13:30 Completed CMP [Comprehensive Metabolic Panel] Stat Lab 09/19/24 13:30 Completed INR [Prothrombin Time INR] Stat Lab 09/19/24 13:30 Completed Procalcitonin Stat Lab 09/19/24 13:30 Completed CA venous doppler LE RT Stat Y 09/19/24 13:19 Completed Medical Decision Narrative: In summary patient is a 78-year-old female who presents to the emergency department for evaluation of dyspnea 10 pound weight gain and right calf pain. Patient is hemodynamically stable with a blood pressure 101/83 heart rate 74 with normal sinus rhythm on the bedside monitor breathing 19 times a minute satting at 97% on room air upon arrival, febrile at 98.6. Physical exam is remarkable for breath sounds that show crackles at the bases however no increased work of breathing or accessory muscle use, abdomen soft nontender no rebound or guarding no rigidity. Patient does have right greater than left dependent edema in her lower extremities and posterior calf tenderness without erythema or induration.. Differential diagnosis includes CHF exacerbation versus pleural effusion versus worsening metastatic disease versus ascites versus PE versus DVT versus ACS etc. Initial workup will be conducted with hematologic labs CT scan chest abdomen pelvis without contrast initially until labs are back and then CT PE protocol for renal function permits. Initial interventions were considered however other than dyspnea patient has no other complaints and currently she is satting well so we will just monitor for now. Initial workup reviewed by me and her hematologic labs are significant for improved renal function with a creatinine today of 0.9 a BUN of 12 and a GFR of 61, hemoglobin and hematocrit are 8.5 and 26.5 respectively with no neutrophilic shift white count 7.2, NT proBNP is 2010, procalcitonin is 0.196 and my informal interpretation of her noncontrasted imaging shows no acute intrathoracic or abdominal process and CT PE protocol does not show any evidence of thrombus. Please see radiology read for final informal interpretation. Upon repeat evaluation patient however desaturates down into the 70s upon ambulating.. Given this I had an interactive discussion with hospital medicine regarding patient presentation REYNOSO and management and she will be admitted for further evaluation and care. Critical Care Critical Care Time Critical Care Time: Yes Attestation: On 09/19/24, the high probability of a clinically significant, sudden or life threatening deterioration of the following system(s) required my full and direct attention, intervention and personal management. The time I documented below is in addition to time spent performing reported procedures but includes the following listed in this critical care notation. Total Time Total Critical Care Time: 35
--- NOTE | 2024-09-19 13:10 | ECG_ITS ---
APPROVED REPORT Exam: Resting ECG HR:71 bpm ECG Measurements Heart Rate 71 AXES IN 179 P 66 QRSd 86 QRS 26 QT 357 T 53 QTc 380 Conclusion SINUS RHYTHM WITH SINUS ARRHYTHMIA LOW QRS VOLTAGE IN PRECORDIAL LEADS [QRS DEFLECTION < 1.0 mV IN CHEST LEADS] BORDERLINE ECG Electronically signed by : DEEDEE VELA, 09/20/2024 22:24:07
--- OUTSIDE RECORDS SUMMARY | 2024-09-19 13:17 | XMS_ITS | Continuity of Care Document ---
Author Organization [facility] Address [address] [place] [address] Care Team Providers Care Hand Inserter Operator Name Role Phone ADDY GONZALES General Surgeon CARLOS A COATS Primary Care Provider VERONIKA RIVER Processing Technician [phone] Assessment No assessment recorded. Plan of Treatment Reminders Order Date Submit Date Provider Last Modified By Organization Details Last Modified Time Details Appointments None recorded. Lab CBC w/ auto diff 2024 025 [facility], [address] , [place], [address], 5 09:46:31 CMP, serum or plasma 2024 025 [facility], [address] [place], [address], 5 09:39:00 carcinoembr yonic Ag, quant, serum or plasma 2024 025 [email or web address] [facility], [address] [place], [address], 5 09:16:06 Referral None recorded. Procedures None recorded. Surgeries None recorded. Imaging CT, head + brain, w/o contrast 2024 025 [email or web address] [facility] (Centralized Scheduling), [address] [place], [address], 5 09:16:16 Medication Orders None recorded. Patient TargetsNo targets recorded. Patient InstructionsNo instructions recorded. Reason for Referral None Reported. Results Created Date Observation Date Name Description Value Unit Range Abnormal Flag Note LastModifiedBy Organization Detail LastModifiedTime 07/28/19 25 07/28/2024 CT ABD pel w/ (IV [facility] [address] [place] [address] Phone: Fax: Name: DESHAWN MCMAHAN Exam Date: : 948 Age 78 years Gender : F Access ion: [id number] 2023 Physic jesus: [facility] ty: [facility] Facili ty HSV: Outpat ient Exam: CT ABD PEL W/ (IV ^ ORAL) CT ABDOME N PELVIS WITH IV CONTRA ST 025 2:46 PM [facility] INDICA TION: Female , 78 [...] gs compar e Februa ry 2023, 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 Legall y authen ticate d by VAMSHI HALL 0 07-28 15:46: 13 CC'ed Logic: Orderi ng Provid er: DIGNA LUGO Attend ing Provid er: DIGNA LUGO Referr ing Provid er: DIGNA LUGO Admitt ing Provid er: DIGNA taylor[address] [place] [address] - Physical Therapy [address] [place] [address], [place], [address], 07/29/2024 11:36:27 08/02/19 25 07/28/2024 CT, chest , w/ contr ast [facility] [address] [place] [address] Phone: Fax: Name: DESHAWN MCMAHAN Exam Date: : 948 Age 78 years Gender : F Access ion: [id number] 2023 Physic jesus: [facility] Facili ty: [facility] Facili ty HSV: Outpat ient Exam: [...] Thank you for referr DESHAWN Delgado to [facility] it Hospit al. Legall y authen ticate d by AVIS ALBA IN 07-28 15:46: 34 CC'ed Logic: Orderi ng Provid er: DIGNA LUGO Attend ing Provid er: DIGNA LUGO Referr ing Provid er: DIGNA LUGO Admitt ing Provid er: DIGNA LUGO [email or web address] [facility] - Physical Therapy [address], [place], [address], 08/01/2024 10:49:34 Result Notes None recorded. Problems Name Problem SNOMED Code Status Onset Date Resolution Date Notes Provider Name and Address Organization Details Recorded Time Headache 12842317 Active 2024 Christine Farfan [facility], [place] - [facility] - [place] & [place] 5 10:27:12 Metastatic malignant neoplasm to liver 94725162 Active 2022 Ghassan Lieberman PA-C [address], [place], [address] , [place] - [facility] - [place] 3 14:27:25 Mass of colon 607155620 Active 2022 Ghassan Lieberman PA-C [address], [place], [address] , [place] - [facility] - [place] & [place] 3 14:27:30 Anemia 961551966 Active 2022 Ghassan Lieberman PA-C [address], [place], [address] , [place] [facility] [place] 3 14:27:36 Nausea and vomiting 06455978 Active 2022 Ghassan Lieberman PA-C [address], [place], [address] , [place] - [facility] & [place] 3 14:27:46 Unintentional weight loss 797516045 Active [address], [place], [address] , [facility] & [place] 3 16:13:07 Night sweats 71365596 Active [address], [place], [address] , [facility] & [place] 3 16:13:12 Problem Notes None recorded. Procedures Surgical History Date Name Laterality Status Provider Name and Address Organization Details Recorded Time 04/29/20 23 Venipuncture completed [address], [place], [address], [facility] & [place] 04/27/2023 15:05:29 04/15/20 23 Venipuncture completed Stephanie Maravilla [facility] & [place] 04/15/2023 15:24:55 hysterectomy completed Laurle Samuels [facility] & [place] 03/11/2023 15:30:22 extraction of cataract completed Laurelesvin Samuels [facility] & [place] 03/11/2023 15:30:36 excision of colon completed Loree Tadeo [facility] & [place] 04/21/2023 11:32:07 Imaging Results None recorded. Procedure Notes None recorded. Medical Equipment None Reported. Allergies Allergen ID Allergen Name Allergen Category Reaction Reaction Severity Criticality Documentation Date Start Date Code Code System Note Provider Name and Address Organization Details Recorded Time 30112 tetracycl ine medicatio n hives Not available high 02/19/2023 99985 [email or web address] [place] 3 14:03:33 Medications Name Sig Start Date [...] 100,000 unit/gram topical powder APPLY TOPICALLY TO THE AFFECTED AREA(S) 2 TIMES PER DAY NEEDED active Not Available Not Available [...] No t Available oxycodone 5 mg tablet TAKE 1 TABLET BY MOUTH EVERY 4 TO 6 HOURS NEEDED active Not Available Not Available No t Available bisacodyl 5 mg tablet Take 1 [...] Updated DateTime 5 162.56 cm 35.2 kg/m2 60520.4 4 g 97.5 [degF] 98 % 98 % 20 /min 83 /min 140 mm[Hg] 68 mm[Hg] Laurel Samuels [facility] & [place] 5 09:42:28 Social History Question Answer Notes LastModified by Organizat ion Details LastModified Time Tobacco Smoking Status Never Smoker Brandytyler Maciel paramjit [facility] & [place] 02/19/2023 14:02:59 What Is Your Level Of Alcohol Consumption? None [email or web address] Information not available 02/19/2023 What Is Your Level Of Caffeine Consumption? None [email or web address] Information not available 02/19/2023 What Was The Date Of Your Most Recent Tobacco Screening? 11/23/2023 [email or web address] Information not available 11/23/2023 Do You Use Any Illicit Or Recreational Drugs? No [email or web address] Information not available 02/19/2023 Has Tobacco Cessation Counseling Been Provided? No [email or web address] Information not available 07/13/2023 Do You Or Have You Ever Used Any Other Forms Of Tobacco Or Nicotine? No [email or web address] Information not available 02/19/2023 Sex: Unknown Functional Status None recorded. Mental Status None recorded. Family History Nothing Reported. Medical History No medical history recorded. Gynecological HistoryNo gynecological history recorded. Obstetrics History GPAL:G 0 P 0 0 0 0 Immunizations Vaccine Type Date Status Note Provider Nam e and Address Organization Details Recorded Time pneumococcal polysaccharide PPV23 7 completed Stephanie Maravilla paramjit [facility] & [place] 12/21/2023 09:56:34 Past Encounters Encounter ID Performer Location Encounter Start Date Encounter Closed Date Diagnosis/Indication Diagnosis SNOMED-CT Code Diagnosis ICD10 Code Diagnosis Note [id number] Tomy King MD [facility] [address] [place] [address] 08/01/2024 11:10:37 08/01/2024 12:30:43 Malignant tumor of ascending colon 431907481 C18.2 CT scan of the abdomen and [...] 8.2 hematocrit 29.0. MCV 67.9. Platelet count 317369. Normal cell differenti al. Low serum folate [...] study published in September 2022 in the [place] [facility] of combined Avastin therapy with [...] Will follow-up Metastatic malignant neoplasm to liver 91196478 C78.7 CT scan of the abdomen and [...] Findings concerning for metastatic colon cancer. Nausea 217810313 R11.0 As needed Zofran and Phenergan prescribed . Discussed trying scopolamin e patches but her insurance wouldn't cover. She is taking Zofran with relief. Pain due t o neoplastic disease 3774164563 9102 G89.3 She is taking hydrocodon e 7.5 mg b.i.d. Discussed taking medication every 4-6 hours as needed. Anemia 539981571 D64.9 Right-side d colon mass concerning for malignancy . Will assess for any signs of iron deficiency . Hemoglobin previously 8.0. Concern for blood loss from colon mass. Patient reports dark stools. labs on July 25, 2024 with improvemen t of hemoglobin 12.6. Patient is currently receiving infusional iron. Adopted 938328180 Z62.89 8 Patient is adopted and discussed hereditary gene panel. Patient does have family history of her son having bladder cancer. Will send [facility] hereditary panel. Antineopla stic chemotherapy regimen 353104854 Z51.11 Week 1 5FU Leucovorin Vectibix on [...] 2024 due to disease progressio n. Hypokalemia 07743504 E87 .6 Patient returns on April 29, 2023. Potassium is low at 2.9. Will send prescripti on for potassium 20 mEq daily. Will follow-up labs again next week. Deep venou s thrombosis 827041435 I82.409 Patient developed right lower extremity pain [...] duplex. 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 [...] reports depression has improved. Atopic conjunctivitis 23 5206579 H10.12 Patient with conjunctiv itis of the left eye. Held Vectibix on December 07, 2023. Continue with current therapy. Will follow up again in 2 weeks. Patient returns on July 25, 2024. She does have conjunctiv itis of the left eye. Will hold Vectibix today. Will follow up. Iron defic iency anemia 11582864 D50.9 Currently receiving infusional iron. Will continue to monitor. Insomnia 025803714 G47.0 0 Patient returns on February 08, 2024. She has had difficulty sleeping for most of her life. She has tried multiple medication s without relief. She is tried Mirtazapin e and lorazepam without improvemen t of insomnia. Discussed trying trazodone instead. Will send prescripti on. Will send prescripti on for Requip for restless legs. Restless legs 82832153 G 25.81 Patient returns on February 08, [...] with diflucan and nystain powder. Generalized rash 7109711 06 R21 Patient returns on May 30, [...] is following with the Coumadin clinic at [facility]. Congestive heart failure 54018010 I50.9 Patient returns on June 27, 2024. Since previous visit patient has been diagnosed with congestive heart failure and atrial fibrillati on. She has started lasix and is following with a cardiologi st. Cachexia 375507332 R64 Patient returns on July 25, 2024. Patient has had decreased appetite. Continues to lose weight. She has lost 4 more lbs since previous visit. She is drinking nutritiona l supplement s. Discussed appetite stimulant. Patient previously refused. Now she is agreeable to try Megace. Will send prescripti on. Will follow up for angela oakley [id number] Parish Snider PA-C [facility] [address] [place] [address] 08/10/2024 09:37:37 08/10/2024 10:29:37 Malignant tumor of ascending colon 480502032 C18.2 CT scan of the abdomen and [...] 8.2 hematocrit 29.0. MCV 67.9. Platelet count 463579. Normal cell differenti al. Low serum folate [...] study published in September 2022 in the [place] [facility] of combined Avastin therapy with [...] liver lesions. Metastatic malignant neoplasm to liver 91256768 C78.7 CT scan of the abdomen and [...] patient is a candidate for radiation Nausea 381056480 R11.0 As needed Zofran and Phenergan prescribed . Discussed trying scopolamin e patches but her insurance wouldn't cover. She is taking Zofran with relief. Pain due t o neoplastic disease 8649643954 9102 G89.3 She is taking hydrocodon e 7.5 mg b.i.d. Discussed taking medication every 4-6 hours as needed. Anemia 022011403 D64.9 Right-side d colon mass concerning for malignancy . Will assess for any signs of iron deficiency . Hemoglobin previously 8.0. Concern for blood loss from colon mass. Patient reports dark stools. Labs on August 10, 2024 with hemoglobin slightly low at 11.9. She is receiving infusional iron as needed. Adopted 164720309 Z62.89 8 Patient is adopted and discussed hereditary gene panel. Patient does have family history of her son having bladder cancer. [facility] hereditary panel sent Antineopla stic chemotherapy regimen 966808669 Z51.11 Week 1 5FU Leucovorin Vectibix on [...] monitor for tolerabili ty and toxicity. Hypokalemia 88874656 E87 .6 Currently taking for potassium 20 mEq daily. Will follow up labs. Mixed anxi ety and depressive disorder 368688078 F41.8 Patient returns on November 23, 2023. [...] reports depression has improved. Atopic conjunctivitis 23 4506243 H10.12 Conjunctiv itis due to Vectibix. This is improving. Iron defic iency anemia 88498174 D50.9 Currently receiving infusional iron as needed. Will continue to monitor. Insomnia 010837163 G47.0 0 Patient has had difficulty sleeping for most of her life. She has tried multiple medication s without relief. She is tried Mirtazapin e and lorazepam without improvemen t of insomnia. Discussed trying trazodone instead. Restless legs 85194159 G 25.81 Patient taking Requip for restless legs. Generalized rash 4721359 06 R21 Patient with rash due to Vectibix. This is improving. Atrial fibrillation 4943 6004 I48.91 Patient has been diagnosed with congestive heart failure and atrial fibrillati on. She has been started on Coumadin. She is following with the Coumadin clinic at [facility]. Congestive heart failure 28334326 I50.9 Patient has been diagnosed with congestive heart failure. She has started lasix and is following with a cardiologi Cachexia 777411390 R64 Patient has had decreased appetite and weight loss. She is drinking nutritiona l supplement s. Discussed appetite stimulant. Patient previously refused. She has started on Megace. Will continue to monitor History of deep vein thrombosis 464914156 Z86.718 Patient developed right lower extremity pain [...] repeat venous duplex. Drug therapy finding 309 388208 Z79.01 She continues on Coumadin due to a fib. She is following with the Coumadin clinic at [facility]. [id number] [facility] [address] [place] [address] 08/25/2024 09:02:23 08/25/2024 09:51:52 Antineoplastic chemotherapy regimen 277475232 Z51.11 Week 1 5FU Leucovorin Vectibix on [...] and toxicity. Malignant tumor of ascending colon 683683330 C18.2 CT scan of the abdomen and [...] 8.2 hematocrit 29.0. MCV 67.9. Platelet count 469650. Normal cell differenti al. Low serum folate [...] study published in September 2022 in the [place] [facility] of combined Avastin therapy with [...] liver lesions. Metastatic malignant neoplasm to liver 67556694 C78.7 CT scan of the abdomen and [...] patient is a candidate for radiation Nausea 922959416 R11.0 As needed Zofran and Phenergan prescribed . Discussed trying scopolamin e patches but her insurance wouldn't cover. She is taking Zofran with relief. Pain due t o neoplastic disease 5490968376 9102 G89.3 She is taking hydrocodon e [...] does take her current medication s Anemia 508392655 D64.9 Right-side d colon mass concerning for malignancy . Will assess for any signs of iron deficiency . Hemoglobin previously 8.0. Concern for blood loss from colon mass. Patient reports dark stools. Labs on August 10, 2024 with hemoglobin slightly low at 11.9. She is receiving infusional iron as needed. Adopted 778743214 Z62.89 8 Patient is adopted and discussed hereditary gene panel. Patient does have family history of her son having bladder cancer. [facility] hereditary panel sent Hypokalemia 22728005 E87 .6 Currently taking for potassium 20 mEq daily. Will follow up labs. Mixed anxi ety and depressive disorder 704675478 F41.8 Patient returns on November 23, 2023. [...] reports depression has improved. Atopic conjunctivitis 23 4677211 H10.12 Conjunctiv itis due to Vectibix. This is improving. Iron defic iency anemia 66147267 D50.9 Receiving infusional iron as needed. Will continue to monitor. Insomnia 802077057 G47.0 0 Patient has had difficulty sleeping for most of her life. She has tried multiple medication s without relief. She is tried Mirtazapin e and lorazepam without improvemen t of insomnia. Discussed trying trazodone instead. Restless legs 79524994 G 25.81 Patient taking Requip for restless legs. Generalized rash 1062283 06 R21 Rash due to Vectibix. This has improved. Atrial fibrillation 4943 6004 I48.91 Patient has been diagnosed with congestive heart failure and atrial fibrillati on. She has been started on Coumadin. She is following with the Coumadin clinic at [facility]. Congestive heart failure 10690038 I50.9 Patient has been diagnosed with congestive heart failure. She has started lasix and is following with a cardiologi Cachexia 753223419 R64 Patient has had decreased appetite and weight loss. She is drinking nutritiona l supplement s. Discussed appetite stimulant. Patient previously refused. She has started on Megace. She does not like the taste of Megace. Discussed Megace tablets instead of liquid but patient declines at this time. Will continue to monitor History of deep vein thrombosis 915415911 Z86.718 Patient developed right lower extremity pain [...] repeat venous duplex. Drug therapy finding 309 055982 Z79.01 She continues on Coumadin due to a fib. She is following with the Coumadin clinic at [facility]. Acute post traumatic headache 5744004989 83852 G44.319 Patient returns on August 25, 2024. [...] Internatio nal normalized ratio above reference range 571516367 R79.1 Patient returns on August 25, 2024. She is on Coumadin for atrial fibrillati on and her INR is elevated. She is going to the Coumadin Clinic for management . INR 8 today. She is going to hold Coumadin and contact Coumadin Clinic for directions today. Denies any bleeding at this time. Health Concerns Section Related Observation LastModified by Organization Shonna medina LastModified Time None Recorded Concern Status LastModified by Organization Details LastModified Time None Recorded Payers Encounter Date Sequence Insurance Name Policy Number Policy Bell Covered Member ID Bell Member ID Guarantor Name 08/25/2024 1 [place] Deshawn Roblero [id number] Deshawn Roblero 08/25/2024 2 [employer] (MEDICARE SUPPLEMENT) Deshawn Roblero [id number] Deshawn Roblero Notes Date Note Type Note Provider Name and Address Organization Details Recorded Time 08/25/2024 text/html 78 yo F returns for evaluation of metastatic colon cancer. Patient recently seen on February 17, 2023 in the emergency room at [facility] with abdominal pain. Patient reported epigastric pain [...] 8.2 hematocrit 29.0. MCV 67.9. Platelet count 389407. Normal cell differential. Low serum folate of [...] with metastatic colorectal cancer. Discussed chemotherapy with [place] based regimen with 5FU Leucovorin if [...] is following with the Coumadin clinic at [facility]. She is scheduled for cardiac [...] study published in September 2022 in the [place] [facility] of combined Avastin therapy with [...] for tolerability and toxicity. Parish Snider PA-C [address], [place], [address], [facility] - [place] & [place] 08/25/2024 10:43:13 OBGyn Episode No OBEpisode recorded.
--- OUTSIDE RECORDS SUMMARY | 2024-09-19 13:17 | XMS_ITS | Continuity of Care Document ---
Author Organization [facility] Address [address] [place] [address] Care Team Providers Care Corrugator Machine Operator Name Role Phone ADDY GONZALES General Surgeon CARLOS A COATS Primary Care Provider [phone] VERONIKA RIVER Field Operations Manager [phone] Assessment No assessment recorded. Plan of Treatment Reminders Order Date Submit Date Provider Last Modified By Organization Details Last Modified Time Details Appointments None recorded. Lab None recorded. Referral radiation oncologist referral 2024 025 [email or web address] 6 Mary Valencia MD, [address] [place], [address], 5 08:24:10 Procedures None recorded. Surgeries None recorded. Imaging None recorded. Medication Orders None recorded. Patient TargetsNo targets recorded. Patient InstructionsNo instructions recorded. Reason for Referral Referring Physician: Parish Snider Hematology/Oncology, Encounter Date: 08/10/2024 Results Created Date Observation Date Name Description Value Unit Range Abnormal Flag Note LastModifiedBy Organization Detail LastModifiedTime 07/28/1907/28/2024 CT ABD pel w/ (IV [facility] [address] [place] [address] Phone: Fax: Name: DESHAWN MCMAHAN Exam Date: 025 : 948 Age 78 years Gender : F Access ion: [id number] 2023 Physic jesus: PARISH PARKER Fac[place] ty: [facility] Fac[place] ty HSV: Outpat ient Exam: CT ABD PEL W/ (IV ^ ORAL) CT ABDOME N PELVIS WITH IV CONTRA ST 025 2:46 PM [facility] INDICA TION: Female , 78 [...] findin gs compar e ua 2023, index dryerman/woman ior segmen t right lobe segmen t [...] you for referr ing DESHAWN MCMAHAN to [facility]. Legall y authen ticate d by VAMSHI HALL 07-28 15:46: 13 CC'ed Logic: Orderi ng Provid er: DIGNA LUGO Attend ing Provid er: DIGNA LUGO Referr ing Provid er: DIGNA ULGO Admitt ing Provid er: DIGNA paulino[address] - Physical Therapy [address] [place] [address], [address], 07/29/2024 11:36:27 08/02/19 25 07/28/2024 CT, chest , w/ contr ast [facility] [address] [place] [address] Phone: Fax: Name: DESHAWN MCMAHAN Exam Date: 025 : 948 Age 78 years Gender : F Access ion: [id number] 2023 Physic jesus: PARISH PARKER Facili ty: [facility] Facili ty HSV: Outpat ient Exam: CT [...] PM Electr onical ly signed by: Annie Villavicenico in 025 Thank you for referr ing DESHAWN [facility]MAHAN to [facility]. Legall y authen ticate d by AVIS ALBA IN 07-28 15:46: 34 CC'ed Logic: Orderi ng Provid er: DIGNA LUGO Attend ing Provid er: DIGNA LUGO Referr ing Provid er: DIGNA LUGO Admitt ing Provid er: DIGNA LUGO [address] - Physical Therapy [address] [facility], [place], [address], 08/01/2024 10:49:34 Result Notes None recorded. Problems Name Problem SNOMED Code Status Onset Date Resolution Date Notes Provider Name and Address Organization Details Recorded Time Headache 15125094 Active 2024 [place] - [place] [facility] & [place] 5 10:27:12 Metastatic malignant neoplasm to liver 04128444 Active [address], [place], [address] , [facility] - [facility] & [place] 3 14:27:25 Mass of colon 793069481 Active [address], [place], [address] , [facility] - [facility] & [place] 3 14:27:30 Anemia 250464402 Active [address], [place], [address] , [facility] - [facility] & [place] 3 14:27:36 Nausea and vomiting 20702144 Active [address], [place], [address] , [facility] - [facility] & [place] 3 14:27:46 Unintentional weight loss 961362545 Active [address], [facility] [address] , [facility] - [facility] & [place] 3 16:13:07 Night sweats 91060251 Active [address], [facility] [address] , [facility] - [facility] & [place] 3 16:13:12 Problem Notes None recorded. Procedures Surgical History Date Name Laterality Status Provider Name and Address Organization Details Recorded Time 04/29/20 23 Venipuncture completed Parish Snider PA-C [address], [place], [address], [facility] & [place] 04/27/2023 15:05:29 04/15/20 23 Venipuncture completed Stephanie Maravilla [facility] & [place] 04/15/2023 15:24:55 hysterectomy completed Laurel Samuels [facility] & [place] 03/11/2023 15:30:22 extraction of cataract completed Laurel Samuels [facility] & [place] 03/11/2023 15:30:36 excision of colon completed Neelammounika Carlyle [facility] & [place] 04/21/2023 11:32:07 Imaging Results None recorded. Procedure Notes None recorded. Medical Equipment None Reported. Allergies Allergen ID Allergen Name Allergen Category Reaction Reaction Severity Criticality Documentation Date Start Date Code Code System Note Provider Name and Address Organization Details Recorded Time 71608 tetracycl ine medicatio n hives Not available high 02/19/2023 82843 RxNorm Brandy Raheem [facility] & [place] 3 14:03:33 Medications Name Sig Start Date [...] Available Not Available Not Available amoxicillin 500 mg-enrique amezcua clavulanate 125 mg tablet TAKE ONE TABLET [...] Updated DateTime 5 162.56 cm 36 kg/m2 30160.4 g 97 [degF] 90 % 90 % 57 /min 18 /min 143 mm[Hg] 68 mm[Hg] Laurel [facility] - [place] & [place] 5 10:00:38 Social History Question Answer Notes LastModified by Organizat ion Details LastModified Time Tobacco Smoking Status Never Smoker Brandy yusuf, CURT Lai [facility] & [place] 02/19/2023 14:02:59 What Is Your Level Of Alcohol Consumption? None [email or web address] Information not available 02/19/2023 What Is Your Level Of Caffeine Consumption? None [email or web address] Information not available 02/19/2023 What Was The Date Of Your Most Recent Tobacco Screening? 11/23/2023 [email or web address] Information not available 11/23/2023 Do You Use Any Illicit Or Recreational Drugs? No Information not available 02/19/2023 Has Tobacco Cessation Counseling Been Provided? No [email or web address] Information not available 07/13/2023 Do You Or Have You Ever Used Any Other Forms Of Tobacco Or Nicotine? No [email or web address] Information not available 02/19/2023 Sex: Unknown Functional Status None recorded. Mental Status None recorded. Family History Nothing Reported. Medical History No medical history recorded. Gynecological HistoryNo gynecological history recorded. Obstetrics History GPAL:G 0 P 0 0 0 0 Immunizations Vaccine Type Date Status Note Provider Nam e and Address Organization Details Recorded Time pneumococcal polysaccharide PPV23 7 completed Stephanie Taiwogerard yusuf, [facility] [place] 12/21/2023 09:56:34 Past Encounters Encounter ID Performer Location Encounter Start Date Encounter Closed Date Diagnosis/Indication Diagnosis SNOMED-CT Code Diagnosis ICD10 Code Diagnosis Note [id number] Parish Snider PA-C [facility] [address] [place] [address] 07/25/2024 10:19:02 07/25/2024 10:39:35 Malignant tumor of ascending colon 523275639 C18.2 CT scan of the abdomen and [...] 8.2 hematocrit 29.0. MCV 67.9. Platelet count 572368. Normal cell differenti al. Low serum folate [...] Vectibix today. Metastatic malignant neoplasm to liver 21424603 C78.7 CT scan of the abdomen and [...] Findings concerning for metastatic colon cancer. Nausea 377231551 R11.0 As needed Zofran and Phenergan prescribed . Discussed trying scopolamin e patches but her insurance wouldn't cover. She is taking Zofran with relief. Pain due t o neoplastic disease 5394951506 9102 G89.3 She is taking hydrocodon e 7.5 mg b.i.d. Discussed taking medication every 4-6 hours as needed. Anemia 909335470 D64.9 Right-side d colon mass concerning for malignancy . Will assess for any signs of iron deficiency . Hemoglobin previously 8.0. Concern for blood loss from colon mass. Patient reports dark stools. labs on July 25, 2024 with improvemen t of hemoglobin 12.6. Patient is currently receiving infusional iron. Adopted 320957231 Z62.89 8 Patient is adopted and discussed hereditary gene panel. Patient does have family history of her son having bladder cancer. Will send [facility] hereditary panel. Antineopla stic chemotherapy regimen 187138593 Z51.11 Week 1 5FU Leucovorin Vectibix on [...] Patient will not receive Vectibix today. Hypokalemia 87890706 E87 .6 Patient returns on April 29, 2023. Potassium is low at 2.9. Will send prescripti on for potassium 20 mEq daily. Will follow-up labs again next week. Deep venou s thrombosis 038890028 I82.409 Patient developed right lower extremity pain [...] duplex. 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 [...] reports depression has improved. Atopic conjunctivitis 23 0489385 H10.12 Patient with conjunctiv itis of the left eye. Held Vectibix on December 07, 2023. Continue with current therapy. Will follow up again in 2 weeks. Patient returns on July 25, 2024. She does have conjunctiv itis of the left eye. Will hold Vectibix today. Will follow up. Iron defic iency anemia 50850897 D50.9 Currently receiving infusional iron. Will continue to monitor. Insomnia 538490800 G47.0 0 Patient returns on February 08, 2024. She has had difficulty sleeping for most of her life. She has tried multiple medication s without relief. She is tried Mirtazapin e and lorazepam without improvemen t of insomnia. Discussed trying trazodone instead. Will send prescripti on. Will send prescripti on for Requip for restless legs. Restless legs 15375938 G 25.81 Patient returns on February 08, [...] with diflucan and nystain powder. Generalized rash 3170549 06 R21 Patient returns on May 30, [...] is following with the Coumadin clinic at [facility]. Congestive heart failure 66539021 I50.9 Patient returns on June 27, 2024. Since previous visit patient has been diagnosed with congestive heart failure and atrial fibrillati on. She has started lasix and is following with a cardiologi [facility] 286085773 R64 Patient returns on July 25, 2024. Patient has had decreased appetite. Continues to lose weight. She has lost 4 more lbs since previous visit. She is drinking nutritiona l supplement s. Discussed appetite stimulant. Patient previously refused. Now she is agreeable to try Megace. Will send prescripti on. Will follow up for angela oakley [id number] Tomy King MD [facility] [address] [place] [address] 08/01/2024 11:10:37 08/01/2024 12:30:43 Malignant tumor of ascending colon 383556107 C18.2 CT scan of the abdomen and [...] 8.2 hematocrit 29.0. MCV 67.9. Platelet count 734432. Normal cell differenti al. Low serum folate [...] study published in September 2022 in the [place] [employer] Medicine of combined Avastin therapy with [...] Will follow-up Metastatic malignant neoplasm to liver 77478940 C78.7 CT scan of the abdomen and [...] Findings concerning for metastatic colon cancer. Nausea 998699517 R11.0 As needed Zofran and Phenergan prescribed . Discussed trying scopolamin e patches but her insurance wouldn't cover. She is taking Zofran with relief. Pain due t o neoplastic disease 2755549768 9102 G89.3 She is taking hydrocodon e 7.5 mg b.i.d. Discussed taking medication every 4-6 hours as needed. Anemia 077956418 D64.9 Right-side d colon mass concerning for malignancy . Will assess for any signs of iron deficiency . Hemoglobin previously 8.0. Concern for blood loss from colon mass. Patient reports dark stools. labs on July 25, 2024 with improvemen t of hemoglobin 12.6. Patient is currently receiving infusional iron. Adopted 422135436 Z62.89 8 Patient is adopted and discussed hereditary gene panel. Patient does have family history of her son having bladder cancer. Will send [facility] hereditary panel. Antineopla stic chemotherapy regimen 481167878 Z51.11 Week 1 5FU Leucovorin Vectibix on [...] 2024 due to disease progressio n. Hypokalemia 95841398 E87 .6 Patient returns on April 29, 2023. Potassium is low at 2.9. Will send prescripti on for potassium 20 mEq daily. Will follow-up labs again next week. Deep venou s thrombosis 904410870 I82.409 Patient developed right lower extremity pain [...] duplex. Mixed anxi ety and depressive disorder 785770668 F41.8 Patient returns on November 23, 2023. [...] reports depression has improved. Atopic conjunctivitis 23 7185473 H10.12 Patient with conjunctiv itis of the left eye. Held Vectibix on December 07, 2023. Continue with current therapy. Will follow up again in 2 weeks. Patient returns on July 25, 2024. She does have conjunctiv itis of the left eye. Will hold Vectibix today. Will follow up. Iron defic iency anemia 52212209 D50.9 Currently receiving infusional iron. Will continue to monitor. Insomnia 514015417 G47.0 0 Patient returns on February 08, 2024. She has had difficulty sleeping for most of her life. She has tried multiple medication s without relief. She is tried Mirtazapin e and lorazepam without improvemen t of insomnia. Discussed trying trazodone instead. Will send prescripti on. Will send prescripti on for Requip for restless legs. Restless legs 31366947 G 25.81 Patient returns on February 08, [...] with diflucan and nystain powder. Generalized rash 5669084 06 R21 Patient returns on May 30, [...] is following with the Coumadin clinic at [facility]. Congestive heart failure 84425378 I50.9 Patient returns on June 27, 2024. Since previous visit patient has been diagnosed with congestive heart failure and atrial fibrillati on. She has started lasix and is following with a cardiologi . Cachexia 270830442 R64 Patient returns on July 25, 2024. Patient has had decreased appetite. Continues to lose weight. She has lost 4 more lbs since previous visit. She is drinking nutritiona l supplement s. Discussed appetite stimulant. Patient previously refused. Now she is agreeable to try Megace. Will send prescripti on. Will follow up for angela oakley [id number] Parish Snider PA-C [facility] [address] [place] [address] 08/10/2024 09:37:37 08/10/2024 10:29:37 Malignant tumor of ascending colon 449834250 C18.2 CT scan of the abdomen and [...] 8.2 hematocrit 29.0. MCV 67.9. Platelet count 419919. Normal cell differenti al. Low serum folate [...] study published in September 2022 in the [place] Journal [facility] of combined Avastin therapy with [...] liver lesions. Metastatic malignant neoplasm to liver 60568118 C78.7 CT scan of the abdomen and [...] patient is a candidate for radiation Nausea 935140412 R11.0 As needed Zofran and Phenergan prescribed . Discussed trying scopolamin e patches but her insurance wouldn't cover. She is taking Zofran with relief. Pain due t o neoplastic disease 6762805236 9102 G89.3 She is taking hydrocodon e 7.5 mg b.i.d. Discussed taking medication every 4-6 hours as needed. Anemia 673177309 D64.9 Right-side d colon mass concerning for malignancy . Will assess for any signs of iron deficiency . Hemoglobin previously 8.0. Concern for blood loss from colon mass. Patient reports dark stools. Labs on August 10, 2024 with hemoglobin slightly low at 11.9. She is receiving infusional iron as needed. Adopted 782165352 Z62.89 8 Patient is adopted and discussed hereditary gene panel. Patient does have family history of her son having bladder cancer. [facility] hereditary panel sent Antineopla stic chemotherapy regimen 074418361 Z51.11 Week 1 5FU Leucovorin Vectibix on [...] monitor for tolerabili ty and toxicity. Hypokalemia 31387410 E87 .6 Currently taking for potassium 20 mEq daily. Will follow up labs. Mixed anxi ety and depressive disorder 875346469 F41.8 Patient returns on November 23, 2023. [...] reports depression has improved. Atopic conjunctivitis 23 4454684 H10.12 Conjunctiv itis due to Vectibix. This is improving. Iron defic iency anemia 86329248 D50.9 Currently receiving infusional iron as needed. Will continue to monitor. Insomnia 372522213 G47.0 0 Patient has had difficulty sleeping for most of her life. She has tried multiple medication s without relief. She is tried Mirtazapin e and lorazepam without improvemen t of insomnia. Discussed trying trazodone instead. Restless legs 06017206 G 25.81 Patient taking Requip for restless legs. Generalized rash 0734092 06 R21 Patient with rash due to Vectibix. This is improving. Atrial fibrillation 4943 6004 I48.91 Patient has been diagnosed with congestive heart failure and atrial fibrillati on. She has been started on Coumadin. She is following with the Coumadin clinic at [facility]. Congestive heart failure 40201521 I50.9 Patient has been diagnosed with congestive heart failure. She has started lasix and is following with a cardiologi st. Cachexia 945803059 R64 Patient has had decreased appetite and weight loss. She is drinking nutritiona l supplement s. Discussed appetite stimulant. Patient previously refused. She has started on Megace. Will continue to monitor History of deep vein thrombosis 118975923 Z86.718 Patient developed right lower extremity pain [...] repeat venous duplex. Drug therapy finding 309 527790 Z79.01 She continues on Coumadin due to a fib. She is following with the Coumadin clinic at [facility]. Health Concerns Section Related Observation LastModified by Organization Detai ls LastModified Time None Recorded Concern Status LastModified by Organization Details LastModified Time None Recorded Payers Encounter Date Sequence Insurance Name Policy Number Policy Bell Covered Member ID Bell Member ID Guarantor Name 08/10/2024 1 [place] Deshawn Roblero [id number] Deshawn Roblero 08/10/2024 2 [employer] (MEDICARE SUPPLEMENT) Deshawn Roblero [id number] Deshawn Roblero Notes Date Note Type Note Provider Name and Address Organization Details Recorded Time 08/10/2024 text/html 78 yo F returns for evaluation of metastatic colon cancer. Patient recently seen on February 17, 2023 in the emergency room at [facility] with abdominal pain. Patient reported epigastric [...] 8.2 hematocrit 29.0. MCV 67.9. Platelet count 115012. Normal cell differential. Low serum folate of [...] with metastatic colorectal cancer. Discussed chemotherapy with [place] based regimen with 5FU Leucovorin if [...] is following with the Coumadin clinic at [facility]. She is scheduled for cardiac [...] study published in September 2022 in the [place] Journal [facility] of combined Avastin therapy with [...] for tolerability and toxicity. Parish Snider PA-C [address] , [place], [address], [place] - [facility] - [place] & [place] 08/10/2024 11:13:32 OBGyn Episode No OBEpisode recorded.
--- OUTSIDE RECORDS SUMMARY | 2024-09-19 13:17 | XMS_ITS | Continuity of Care Document ---
Author Organization [facility] Address [address] [place] [address] Care Team Providers Care Superintendent Gas Distribution Name Role Phone ADDY GONZALES General Surgeon CARLOS A COATS Primary Care Provider [phone] VERONIKA RIVER Audit Associate Assessment No assessment recorded. Plan of Treatment Reminders Order Date Submit Date Provider Last Modified By Organization Details Last Modified Time Details Appointments None recorded. Lab carcinoembr yonic Ag, quant, serum or plasma 2024 [email or web address] [facility], [address] [place], [address], 5 09:07:03 CMP, serum or plasma 20[email or web address] [facility], [address] [place], [address], 5 11:45:06 CBC w/ diff 2024 [email or web address] [facility], [address] [place], [address], 5 09:07:03 Referral None recorded. Procedures None recorded. Surgeries None recorded. Imaging None recorded. Medication Orders megestrol 400 mg/10 mL (40 mg/mL) oral suspension 2024 025 [email or web address] [id number], [address] [place], [address], 11:45:06 Patient TargetsNo targets recorded. Patient InstructionsNo instructions recorded. Reason for Referral None Reported. Results Created Date Observation Date Name Description Value Unit Range Abnormal Flag Note LastModifiedBy Organization Detail LastModifiedTime 07/28/1907/28/2024 CT ABD pel w/ (IV [facility] [address] [place] [address] Phone: Fax: Name: DESHAWN MCMAHAN Exam Date: : 948 Age 78 years Gender : F Access ion: [id number] 2023 Physic jesus: PAR[facility] PARKERi ty: [facility] Facili ty HSV: Outpat ient Exam: CT ABD PEL W/ (IV ^ ORAL) CT ABDOME N PELVIS WITH IV CONTRA ST 025 2:46 PM HEAD OF ACQUISITIONS CLINIC AL INDICA TION: Female , 78 [...] gs compar e Februa ry 2023, index detasseler ior segmen t right lobe segmen t [...] [facility] Legall y authen ticate d by VAMSHI HALL 07-28 15:46: 13 CC'ed Logic: Orderi ng Provid er: DIGNA LUGO Attend ing Provid er: DIGNA LUGO Referr ing Provid er: DIGNA LUGO Admitt ing Provid er: DIGNA taylor[address] [place] [address] - Physical Therapy [address] [address] [facility], [place], [address], 07/29/2024 11:36:27 08/02/19 25 07/28/2024 CT, chest , w/ contr ast [facility] [address] [place] [address] Phone: Fax: Name: ANGELINA DIGGS DESHAWN Exam Date: 025 : 948 Age 78 years Gender : F Access ion: [id number] 2023 Physic jesus: PAR[facility] PARKER Facili ty: [facility] Facili ty HSV: Outpat ient Exam: [...] [facility] Legall y authen ticate d by AVIS ALBA IN 07-28 15:46: 34 CC'ed Logic: Orderi ng Provid er: DIGNA LUGO Attend ing Provid er: DIGNA LUGO Referr ing Provid er: DIGNA LUGO Admitt ing Provid er: DIGNA LUGO [email or web address] [facility] [address], [place], [address], 08/01/2024 10:49:34 Result Notes None recorded. Problems Name Problem SNOMED Code Status Onset Date Resolution Date Notes Provider Name and Address Organization Details Recorded Time Headache 34120174 Active 2024 Christine Farfan [facility], [place] - [facility] & [place] 5 10:27:12 Metastatic malignant neoplasm to liver 29692595 Active 2022 Ghassan Lieberman PA-C [address], [place], [address] , [place] - [facility] & [place] 3 14:27:25 Mass of colon 948864685 Active 2022 Ghassan Lieberman PA-C [address], [place], [address] , [place] - [facility] & [place] 3 14:27:30 Anemia 272962917 Active 2022 Ghassan Lieberman PA-C [address], [place], [address] , [place] [facility] & [place] 3 14:27:36 Nausea and vomiting 64196696 Active 2022 Ghassan Lieberman PA-C [address], [place], [address] , [place] - [facility] & [place] 3 14:27:46 Unintentional weight loss 804525298 Active 2022 Ghassan Lieberman PA-C [address], [place], [address] , [facility] & [place] 3 16:13:07 Night sweats 17208408 Active [address], [facility] [address] , [facility] & [place] 3 16:13:12 Problem Notes None recorded. Procedures Surgical History Date Name Laterality Status Provider Name and Address Organization Details Recorded Time 04/29/20 23 Venipuncture completed Parish Snider PA-C [address] , [place], [address], [facility] & [place] 04/27/2023 15:05:29 04/15/20 23 Venipuncture completed Stephanie Maravilla [facility] & [place] 04/15/2023 15:24:55 hysterectomy completed Laurel Samuels [facility] & [place] 03/11/2023 15:30:22 extraction of cataract completed Laurelesvin Samuels [facility] & [place] 03/11/2023 15:30:36 excision of colon completed Loree Tadeo [facility] & [place] 04/21/2023 11:32:07 Imaging Results None recorded. Procedure Notes None recorded. Medical Equipment None Reported. Allergies Allergen ID Allergen Name Allergen Category Reaction Reaction Severity Criticality Documentation Date Start Date Code Code System Note Provider Name and Address Organization Details Recorded Time 46234 tetracycl ine medicatio n hives Not available high 02/19/2023 34923 RxNorm Brandytyler yusuf [facility] & [place] 3 14:03:33 Medications Name Sig Start Date [...] Updated DateTime 5 162.56 cm 36 kg/m2 31865.4 g 98 [degF] 97 % 97 % 98 /min 132 mm[Hg] 72 mm[Hg] Akilah Stump [facility] & [place] 5 10:42:43 Social History Question Answer Notes LastModified by Organizat ion Details LastModified Time Tobacco Smoking Status Never Smoker Brandy Maciel [facility] & [place] 02/19/2023 14:02:59 What Is Your Level Of Alcohol Consumption? None Information not available 02/19/2023 What Is Your Level Of Caffeine Consumption? None [email or web address] Information not available 02/19/2023 What Was The Date Of Your Most Recent Tobacco Screening? 11/23/2023 [email or web address] Information not available 11/23/2023 Do You Use Any Illicit Or Recreational Drugs? No [email or web address] Information not available 02/19/2023 Has Tobacco Cessation Counseling Been Provided? No [email or web address] Information not available 07/13/2023 Do You Or [...] pneumococcal polysaccharide PPV23 7 [facility] [place] 12/21/2023 09:56:34 Past Encounters Encounter ID Performer Location Encounter Start Date Encounter Closed Date Diagnosis/Indication Diagnosis SNOMED-CT Code Diagnosis ICD10 Code Diagnosis Note [id number] Parish Snider PA-C [facility] [address] [place] [address] 06/27/2024 09:58:37 06/27/2024 10:53:58 Malignant tumor of ascending colon 965286062 C18.2 CT scan of the abdomen and [...] 8.2 hematocrit 29.0. MCV 67.9. Platelet count 638031. Normal cell differenti al. Low serum folate [...] is following with the Coumadin clinic at [facility]. She is scheduled for cardiac [...] up labs. Metastatic malignant neoplasm to liver 07274312 C78.7 CT scan of the abdomen and [...] Findings concerning for metastatic colon cancer. Nausea 415911209 R11.0 As needed Zofran and Phenergan prescribed . Discussed trying scopolamin e patches but her insurance wouldn't cover. Pain due t o neoplastic disease 0013390626 9102 G89.3 Right upper quadrant pain secondary to liver metastasis . Patient currently taking Tylenol. Discussed as needed oxycodone to limit Tylenol exposure. Anemia 576309240 D64.9 Right-side d colon mass concerning for malignancy . Will assess for any signs of iron deficiency . Most recent hemoglobin at 8.0. Concern for blood loss from colon mass. Patient reports dark stools. Adopted 908783490 Z62.89 8 Patient is adopted and discussed hereditary gene panel. Patient does have family history of her son having bladder cancer. Will send [facility] hereditary panel. Antineopla stic chemotherapy regimen 063181367 Z51.11 Week 1 5FU Leucovorin Vectibix on [...] Patient will receive not Vectibix today. Hypokalemia 48755308 E87 .6 Patient returns on April 29, 2023. Potassium is low at 2.9. Will send prescripti on for potassium 20 mEq daily. Will follow-up labs again next week. Deep venou s thrombosis 153787944 I82.409 Patient developed right lower extremity pain [...] duplex. 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 [...] prescripti on for Cymbalta. Atopic conjunctivitis 23 2335500 H10.12 Patient with conjunctiv itis of the left eye. Held Vectibix on December 07, 2023. Continue with current therapy. Will follow up again in 2 weeks. Iron defic iency anemia 50137299 D50.9 Will follow up labs Insomnia 707839666 G47.0 0 Patient returns on February 08, 2024. She has had difficulty sleeping for most of her life. She has tried multiple medication s without relief. She is tried Mirtazapin e and lorazepam without improvemen t of insomnia. Discussed trying trazodone instead. Will send prescripti on. Will send prescripti on for Requip for restless legs. Restless legs 11182947 G 25.81 Patient returns on February 08, [...] patient has not received Vectibix. Generalized rash 2448587 06 R21 Patient returns on May 30, [...] is following with the Coumadin clinic at [facility]. Congestive heart failure 28456402 I50.9 Patient returns on June 27, 2024. Since previous visit patient has been diagnosed with congestive heart failure and atrial fibrillati on. She has started lasix and is following with a cardiologi st. [id number] Parish Snider PA-C [facility] [address] [place] [address] 07/11/2024 09:55:48 07/11/2024 10:53:23 Malignant tumor of ascending colon 635672496 C18.2 CT scan of the abdomen and [...] 8.2 hematocrit 29.0. MCV 67.9. Platelet count 757777. Normal cell differenti al. Low serum folate [...] up labs. Metastatic malignant neoplasm to liver 22555060 C78.7 CT scan of the abdomen and [...] Findings concerning for metastatic colon cancer. Nausea 619166147 R11.0 As needed Zofran and Phenergan prescribed . Discussed trying scopolamin e patches but her insurance wouldn't cover. She is taking Zofran with relief. Pain due t o neoplastic disease 7264878655 9102 G89.3 She is taking hydrocodon e 7.5 mg b.i.d. Discussed taking medication every 4-6 hours as needed. Anemia 746088318 D64.9 Right-side d colon mass concerning for malignancy . Will assess for any signs of iron deficiency . Most recent hemoglobin at 8.0. Concern for blood loss from colon mass. Patient reports dark stools. Adopted 761510417 Z62.89 8 Patient is adopted and discussed hereditary gene panel. Patient does have family history of her son having bladder cancer. Will send [facility] hereditary panel. Antineopla stic chemotherapy regimen 611132414 Z51.11 Week 1 5FU Leucovorin Vectibix on [...] 2024. Patient will receive Vectibix today. Hypokalemia 18165880 E87 .6 Patient returns on April 29, 2023. Potassium is low at 2.9. Will send prescripti on for potassium 20 mEq daily. Will follow-up labs again next week. Deep venou s thrombosis 288824374 I82.409 Patient developed right lower extremity pain [...] duplex. Mixed anxi ety and depressive disorder 427148874 F41.8 Patient returns on November 23, 2023. [...] prescripti on for Cymbalta. Atopic conjunctivitis 23 5793891 H10.12 Patient with conjunctiv itis of the left eye. Held Vectibix on December 07, 2023. Continue with current therapy. Will follow up again in 2 weeks. Iron defic iency anemia 03799689 D50.9 Will follow up labs Insomnia 066813238 G47.0 0 Patient returns on February 08, 2024. She has had difficulty sleeping for most of her life. She has tried multiple medication s without relief. She is tried Mirtazapin e and lorazepam without improvemen t of insomnia. Discussed trying trazodone instead. Will send prescripti on. Will send prescripti on for Requip for restless legs. Restless legs 17816865 G 25.81 Patient returns on February 08, [...] patient has not received Vectibix. Generalized rash 2230083 06 R21 Patient returns on May 30, [...] is following with the Coumadin clinic at [facility]. Congestive heart failure 32376276 I50.9 Patient returns on June 27, 2024. Since previous visit patient has been diagnosed with congestive heart failure and atrial fibrillati on. She has started lasix and is following with a cardiologi st. [id number] Jana España MD [facility] [address] [place] [address] 07/06/2024 10:53:43 07/08/2024 03:53:47 Seen by palliative care service 984083912 Z51.5 Introduced services today. Dtr and son would be NOK - she feels important to start thinking about completion of LW/AD- I provided copies today and [facility] and will plan to f/u on this is two weeks. Encouraged her to think about HCS/code status. Still wants to continue chemo and has scans next week - did not discuss hospice, but eligible at any point Pain due t o neoplastic disease 7802526381 9102 G89.3 Uncontroll ed, had lortab prescribed which manages pain well when she takes medication . Encouraged adherence. Mixed anxi ety and depressive disorder 512334548 F41.8 Uncontroll ed. Not taking cymbalta. Encouraged adherence and PRN ativan for breakthrou gh syptoms. Did not wish to pursue CBt at this time, will d/w Elsa for additional support options moving forward Nausea and vomiting 1692 1999 R11.2 Related to malignancy vs. Chemo. Improved with PRN and qAM zofran, likely related to chemo vs. malignancy Loss of appetite 8349317 6 R63.0 Related to malignancy . Not taking mirtazapin e. Does not want to add additional Rx at this itme or see nutritioni st. [id number] Parish Snider PA-C [facility] [address] [place] [address] 07/25/2024 10:19:02 07/25/2024 10:39:35 Malignant tumor of ascending colon 544758410 C18.2 CT scan of the abdomen and [...] 8.2 hematocrit 29.0. MCV 67.9. Platelet count 803736. Normal cell differenti al. Low serum folate [...] Vectibix today. Metastatic malignant neoplasm to liver 98477745 C78.7 CT scan of the abdomen and [...] Findings concerning for metastatic colon cancer. Nausea 672173427 R11.0 As needed Zofran and Phenergan prescribed . Discussed trying scopolamin e patches but her insurance wouldn't cover. She is taking Zofran with relief. Pain due t o neoplastic disease 2879682401 9102 G89.3 She is taking hydrocodon e 7.5 mg b.i.d. Discussed taking medication every 4-6 hours as needed. Anemia 658446439 D64.9 Right-side d colon mass concerning for malignancy . Will assess for any signs of iron deficiency . Hemoglobin previously 8.0. Concern for blood loss from colon mass. Patient reports dark stools. labs on July 25, 2024 with improvemen t of hemoglobin 12.6. Patient is currently receiving infusional iron. Adopted 528555411 Z62.89 8 Patient is adopted and discussed hereditary gene panel. Patient does have family history of her son having bladder cancer. Will send [facility] hereditary panel. Antineopla stic chemotherapy regimen 435193706 Z51.11 Week 1 5FU Leucovorin Vectibix on [...] Patient will not receive Vectibix today. Hypokalemia 54785392 E87 .6 Patient returns on April 29, 2023. Potassium is low at 2.9. Will send prescripti on for potassium 20 mEq daily. Will follow-up labs again next week. Deep venou s thrombosis 134425076 I82.409 Patient developed right lower extremity pain [...] duplex. Mixed anxi ety and depressive disorder 824662580 F41.8 Patient returns on November 23, 2023. [...] reports depression has improved. Atopic conjunctivitis 23 2487289 H10.12 Patient with conjunctiv itis of the left eye. Held Vectibix on December 07, 2023. Continue with current therapy. Will follow up again in 2 weeks. Patient returns on July 25, 2024. She does have conjunctiv itis of the left eye. Will hold Vectibix today. Will follow up. Iron defic iency anemia 97951010 D50.9 Currently receiving infusional iron. Will continue to monitor. Insomnia 331189193 G47.0 0 Patient returns on February 08, 2024. She has had difficulty sleeping for most of her life. She has tried multiple medication s without relief. She is tried Mirtazapin e and lorazepam without improvemen t of insomnia. Discussed trying trazodone instead. Will send prescripti on. Will send prescripti on for Requip for restless legs. Restless legs 29503172 G 25.81 Patient returns on February 08, [...] with diflucan and nystain powder. Generalized rash 5681206 06 R21 Patient returns on May 30, [...] is following with the Coumadin clinic at [facility]. Congestive heart failure 10875015 I50.9 Patient returns on June 27, 2024. Since previous visit patient has been diagnosed with congestive heart failure and atrial fibrillati on. She has started lasix and is following with a cardiologi st. Cachexia 327891128 R64 Patient returns on July 25, 2024. [...] Name 07/25/2024 1 [place] Deshawn Roblero [id number] Deshawn Roblero 07/25/2024 2 [employer] (MEDICARE SUPPLEMENT) Deshawn Roblero [id number] Deshawn Roblero Notes Date Note Type Note Provider Name and Address Organization Details Recorded Time 07/25/2024 text/html 78 yo F returns for evaluation of metastatic colon cancer. Patient recently seen on February 17, 2023 in the emergency room at [facility] with abdominal pain. Patient reported epigastric pain [...] 8.2 hematocrit 29.0. MCV 67.9. Platelet count 945356. Normal cell differential. Low serum folate of [...] with metastatic colorectal cancer. Discussed chemotherapy with [place] based regimen with 5FU Leucovorin if [...] is following with the Coumadin clinic at [facility]. She is scheduled for cardiac [...] Will follow up labs. Parish Snider PA-C [address], [place], [address], [place] - [facility] - [place] & [place] 07/25/2024 11:22:44 OBGyn Episode No OBEpisode recorded.
--- OUTSIDE RECORDS SUMMARY | 2024-09-19 13:18 | XMS_ITS | Continuity of Care Document ---
Author Organization [facility] Address [address] [place] [address] Care Team Providers Care Napkin Band Wrapper Name Role Phone ADDY GONZALES General Surgeon CARLOS A COATS Primary Care Provider VERONIKA RIVER Investment Analyst Assessment No assessment recorded. Plan of Treatment Reminders Order Date Submit Date Provider Last Modified By Organization Details Last Modified Time Details Appointments None recorded. Lab culture, stool 2024 025 [email or web address] 6 [facility], [address] [place], [address], 5 11:40:08 O&P (ova & parasites), stool 2024 025 [email or web address] 6 [facility], [address] [place], [address], 5 11:40:09 C diff screen, stool, reflex PCR 2024 025 [email or web address] 6 [facility], [address] [place], [address], 5 11:40:09 CBC w/ auto diff 2024 025 ISABEL [facility], [address] [place], [address], 5 16:09:44 CMP, serum or plasma 2024 025 ISABEL [facility], [address], [place], [address], 14:45:24 Referral None recorded. Procedures None recorded. Surgeries None recorded. Imaging None recorded. Medication Orders ondansetron 8 mg disintegrat ing tablet [address] [facility] [id number], [address] [place], [address], 12:29:05 Pepcid 20 mg tablet [address] [facility] [address], [address] [place], [address], 12:29:05 Patient TargetsNo targets recorded. Patient InstructionsNo instructions recorded. Reason for Referral None Reported. Problems Name Problem SNOMED Code Status Onset Date Resolution Date Notes Provider Name and Address Organization Details Recorded Time Headache 30224273 Active 2024 Christine Farfan [place], [place] - [facility] & [place] 5 10:27:12 Metastatic malignant neoplasm to liver 66323313 Active 2022 Ghassan Lieberman PA-C [address] , [place], [address] , [place] - [facility] [place] 3 14:27:25 Mass of colon 222746675 Active 2022 Ghassan Lieberman PA-C [address] , [place], [address] , [place] - [facility] & [place] 3 14:27:30 Anemia 481301139 Active 2022 Ghassan Lieberman PA-C [address], [place], [address] , [place] [facility] & [place] 3 14:27:36 Nausea and vomiting 08828801 Active 2022 Ghassan Lieberman PA-C [address], [place], [address] , [facility] [place] 3 14:27:46 Unintentional weight loss 760131311 Active [address], [place], [address] , [facility] & [place] 3 16:13:07 Night sweats 15972286 Active [address], [place], [address] , [facility] & [place] 3 16:13:12 Problem Notes None recorded. Procedures Surgical History Date Name Laterality Status Provider Name and Address Organization Details Recorded Time 04/29/20 23 Venipuncture completed SANGITA [address] , [place], [address], [facility] & [place] 04/27/2023 15:05:29 04/15/20 23 Venipuncture completed Stephanie Maravilla [facility] & [place] 04/15/2023 15:24:55 hysterectomy completed Laurel Samuels [facility] & [place] 03/11/2023 15:30:22 extraction of cataract completed Laurel Samuels [facility] & [place] 03/11/2023 15:30:36 excision of colon completed Loree Tadeo [facility] & [place] 04/21/2023 11:32:07 Imaging Results None recorded. Procedure Notes None recorded. Medical Equipment None Reported. Allergies Allergen ID Allergen Name Allergen Category Reaction Reaction Severity Criticality Documentation Date Start Date Code Code System Note Provider Name and Address Organization Details Recorded Time 87858 tetracycl ine medicatio n hives Not available high 02/19/2023 39242 RxNorm Brandy Maciel paramjit [facility] & [place] 3 14:03:33 Medications Name Sig Start Date [...] TAKE 1 TABLET BY MOUTH EVERY DAY 12/02/ 2024 active Not Available Not Available Not [...] /min 137 mm[Hg] 86 mm[Hg] Laurel ELIAS [facility] & [place] 5 12:09:03 Social History Question Answer Notes LastModified by Organizat ion Details LastModified Time Tobacco Smoking Status Never Smoker Brandy yusuf [facility] & [place] 02/19/2023 14:02:59 What Is Your Level Of Alcohol Consumption? None [email or web address] Information not available 02/19/2023 What Is Your Level Of Caffeine Consumption? None [email or web address] Information not available 02/19/2023 What Was The Date Of Your Most Recent Tobacco Screening? 11/23/2023 [email or web address] Information not available 11/23/2023 Do You Use Any Illicit Or Recreational Drugs? No [email or web address] Information not available 02/19/2023 Has Tobacco Cessation Counseling Been Provided? No [email or web address] Information not available 07/13/2023 Do You Or Have You Ever Used Any Other Forms Of Tobacco Or Nicotine? No [email or web address] Information not available 02/19/2023 Sex: Unknown Functional Status None recorded. Mental Status None recorded. Family History Nothing Reported. Medical History No medical history recorded. Gynecological HistoryNo gynecological history recorded. Obstetrics History GPAL:G 0 P 0 0 0 0 Immunizations Vaccine Type Date Status Note Provider Nam e and Address Organization Details Recorded Time pneumococcal polysaccharide PPV23 7 completed Stephanie yusuf CURT [facility] & [place] 12/21/2023 09:56:34 Past Encounters Encounter ID Performer Location Encounter Start Date Encounter Closed Date Diagnosis/Indication Diagnosis SNOMED-CT Code Diagnosis ICD10 Code Diagnosis Note [id number] Hanna Snider PA-C [facility] [address] [place] [address] 08/10/2024 09:37:37 08/10/2024 10:29:37 Malignant tumor of ascending colon 793487318 C18.2 CT scan of the abdomen and [...] 8.2 hematocrit 29.0. MCV 67.9. Platelet count 194668. Normal cell differenti al. Low serum folate [...] study published in September 2022 in the [place] [employer] [facility] of combined Avastin therapy with [...] liver lesions. Metastatic malignant neoplasm to liver 72839977 C78.7 CT scan of the abdomen and [...] patient is a candidate for radiation Nausea 238689160 R11.0 As needed Zofran and Phenergan prescribed . Discussed trying scopolamin e patches but her insurance wouldn't cover. She is taking Zofran with relief. Pain due t o neoplastic disease 4430041108 9102 G89.3 She is taking hydrocodon e 7.5 mg b.i.d. Discussed taking medication every 4-6 hours as needed. Anemia 860338512 D64.9 Right-side d colon mass concerning for malignancy . Will assess for any signs of iron deficiency . Hemoglobin previously 8.0. Concern for blood loss from colon mass. Patient reports dark stools. Labs on August 10, 2024 with hemoglobin slightly low at 11.9. She is receiving infusional iron as needed. Adopted 869908466 Z62.89 8 Patient is adopted and discussed hereditary gene panel. Patient does have family history of her son having bladder cancer. [facility] hereditary panel sent Antineopla stic chemotherapy regimen 377245422 Z51.11 Week 1 5FU Leucovorin Vectibix on [...] monitor for tolerabili ty and toxicity. Hypokalemia 74699401 E87 .6 Currently taking for potassium 20 mEq daily. Will follow up labs. Mixed anxi ety and depressive disorder 111939257 F41.8 Patient returns on November 23, 2023. [...] reports depression has improved. Atopic conjunctivitis 23 3155162 H10.12 Conjunctiv itis due to Vectibix. This is improving. Iron defic iency anemia 62309530 D50.9 Currently receiving infusional iron as needed. Will continue to monitor. Insomnia 590922856 G47.0 0 Patient has had difficulty sleeping for most of her life. She has tried multiple medication s without relief. She is tried Mirtazapin e and lorazepam without improvemen t of insomnia. Discussed trying trazodone instead. Restless legs 84220269 G 25.81 Patient taking Requip for restless legs. Generalized rash 3393629 06 R21 Patient with rash due to Vectibix. This is improving. Atrial fibrillation 4943 6004 I48.91 Patient has been diagnosed with congestive heart failure and atrial fibrillati on. She has been started on Coumadin. She is following with the Coumadin clinic at [facility]. Congestive heart failure 68439635 I50.9 Patient has been diagnosed with congestive heart failure. She has started lasix and is following with a cardiologi . Cachexia 115060244 R64 Patient has had decreased appetite and weight loss. She is drinking nutritiona l supplement s. Discussed appetite stimulant. Patient previously refused. She has started on Megace. Will continue to monitor History of deep vein thrombosis 658656191 Z86.718 Patient developed right lower extremity pain [...] repeat venous duplex. Drug therapy finding 309 221076 Z79.01 She continues on Coumadin due to a fib. She is following with the Coumadin clinic at [facility]. [id number] [facility] [address] [place] [address] 08/25/2024 09:02:23 08/25/2024 09:51:52 Antineoplastic chemotherapy regimen 576780573 Z51.11 Week 1 5FU Leucovorin Vectibix on [...] and toxicity. Malignant tumor of ascending colon 176303206 C18.2 CT scan of the abdomen and [...] 8.2 hematocrit 29.0. MCV 67.9. Platelet count 245642. Normal cell differenti al. Low serum folate [...] study published in September 2022 in the [place] [employer] [facility] of combined Avastin therapy with [...] liver lesions. Metastatic malignant neoplasm to liver 25804458 C78.7 CT scan of the abdomen and [...] patient is a candidate for radiation Nausea 390360415 R11.0 As needed Zofran and Phenergan prescribed . Discussed trying scopolamin e patches but her insurance wouldn't cover. She is taking Zofran with relief. Pain due t o neoplastic disease 2807409846 9102 G89.3 She is taking hydrocodon e [...] does take her current medication s Anemia 189381380 D64.9 Right-side d colon mass concerning for malignancy . Will assess for any signs of iron deficiency . Hemoglobin previously 8.0. Concern for blood loss from colon mass. Patient reports dark stools. Labs on August 10, 2024 with hemoglobin slightly low at 11.9. She is receiving infusional iron as needed. Adopted 540003197 Z62.89 8 Patient is adopted and discussed hereditary gene panel. Patient does have family history of her son having bladder cancer. [facility] hereditary panel sent Hypokalemia 10779773 E87 .6 Currently taking for potassium 20 mEq daily. Will follow up labs. Mixed anxi ety and depressive disorder 330039873 F41.8 Patient returns on November 23, 2023. [...] reports depression has improved. Atopic conjunctivitis 23 0536877 H10.12 Conjunctiv itis due to Vectibix. This is improving. Iron defic iency anemia 80177003 D50.9 Receiving infusional iron as needed. Will continue to monitor. Insomnia 737155214 G47.0 0 Patient has had difficulty sleeping for most of her life. She has tried multiple medication s without relief. She is tried Mirtazapin e and lorazepam without improvemen t of insomnia. Discussed trying trazodone instead. Restless legs 14570364 G 25.81 Patient taking Requip for restless legs. Generalized rash 4721182 06 R21 Rash due to Vectibix. This has improved. Atrial fibrillation 4943 6004 I48.91 Patient has been diagnosed with congestive heart failure and atrial fibrillati on. She has been started on Coumadin. She is following with the Coumadin clinic at [facility]. Congestive heart failure 50805756 I50.9 Patient has been diagnosed with congestive heart failure. She has started lasix and is following with a cardiologi st. Cachexia 258077955 R64 Patient has had decreased appetite and weight loss. She is drinking nutritiona l supplement s. Discussed appetite stimulant. Patient previously refused. She has started on Megace. She does not like the taste of Megace. Discussed Megace tablets instead of liquid but patient declines at this time. Will continue to monitor History of deep vein thrombosis 040388516 Z86.718 Patient developed right lower extremity pain [...] repeat venous duplex. Drug therapy finding 309 449616 Z79.01 She continues on Coumadin due to a fib. She is following with the Coumadin clinic at [facility]. Acute post traumatic headache 2064956440 12615 G44.319 Patient returns on August 25, 2024. [...] Internatio nal normalized ratio above reference range 147315859 R79.1 Patient returns on August 25, 2024. She is on Coumadin for atrial fibrillati on and her INR is elevated. She is going to the Coumadin Clinic for management . INR 8 today. She is going to hold Coumadin and contact Coumadin Clinic for directions today. Denies any bleeding at this time. [id number] Hanna Snider PA-C [facility] [address] [place] [address] 09/02/2024 11:29:36 09/02/2024 12:07:33 Antineoplastic chemotherapy regimen 634568857 Z51.11 Week 1 5FU Leucovorin Vectibix on [...] follow up. Malignant tumor of ascending colon 416752017 C18.2 CT scan of the abdomen and [...] 8.2 hematocrit 29.0. MCV 67.9. Platelet count 314078. Normal cell differenti al. Low serum folate [...] study published in September 2022 in the [place] [employer] [facility] of combined Avastin therapy with [...] liver lesions. Metastatic malignant neoplasm to liver 54445826 C78.7 CT scan of the abdomen and [...] patient is a candidate for radiation Nausea 627937001 R11.0 As needed Zofran and Phenergan prescribed [...] ons. Pain due t o neoplastic disease 7164146198 9102 G89.3 She is taking hydrocodon e [...] tab po every 3-4 hours instead. Anemia 278685421 D64.9 Right-side d colon mass concerning for malignancy . Will assess for any signs of iron deficiency . Hemoglobin previously 8.0. Concern for blood loss from colon mass. Patient reports dark stools. Labs on August 10, 2024 with hemoglobin slightly low at 11.9. She is receiving infusional iron as needed. Adopted 265053683 Z62.89 8 Patient is adopted and discussed hereditary gene panel. Patient does have family history of her son having bladder cancer. [facility] hereditary panel sent Hypokalemia 41263331 E87 .6 Currently taking for potassium 20 mEq daily. Will follow up labs. Mixed anxi ety and depressive disorder 973117843 F41.8 Patient returns on November 23, 2023. [...] reports depression has improved. Atopic conjunctivitis 23 1483434 H10.12 Conjunctiv itis due to Vectibix. This is improving. Iron defic iency anemia 26243700 D50.9 Receiving infusional iron as needed. Will continue to monitor. Insomnia 099810552 G47.0 0 Patient has had difficulty sleeping for most of her life. She has tried multiple medication s without relief. She is tried Mirtazapin e and lorazepam without improvemen t of insomnia. Discussed trying trazodone instead. Restless legs 16957007 G 25.81 Patient taking Requip for restless legs. Generalized rash 1120050 06 R21 Rash due to Vectibix. This has improved. Atrial fibrillation 4943 6004 I48.91 Patient has been diagnosed with congestive heart failure and atrial fibrillati on. She has been started on Coumadin. She is following with the Coumadin clinic at [facility]. Congestive heart failure 81981601 I50.9 Patient has been diagnosed with congestive heart failure. She has started lasix and is following with a cardiologi st. Cachexia 546365091 R64 Patient has had decreased appetite and weight loss. She is drinking nutritiona l supplement s. Discussed appetite stimulant. Patient previously refused. She has started on Megace. She does not like the taste of Megace. Discussed Megace tablets instead of liquid but patient declines at this time. Will continue to monitor History of deep vein thrombosis 218722896 Z86.718 Patient developed right lower extremity pain [...] repeat venous duplex. Drug therapy finding 309 409588 Z79.01 She continues on Coumadin due to a fib. She is following with the Coumadin clinic at [facility]. Internatio nal normalized ratio above reference range 087076758 R79.1 Patient returns on August 25, 2024. She is on Coumadin for atrial fibrillati on and her INR is elevated. She is going to the Coumadin Clinic for management . INR 8 today. She is going to hold Coumadin and contact Coumadin Clinic for directions today. Denies any bleeding at this time. Diarrhea 54989343 R19.7 Patient with increased diarrhea, nausea, and vomiting for the past 4 days. She is taking Imodium and Lomotil without relief. She has a history of C diff. Will order stool studies today. Will check stool for C diff today. Dehydration 50673131 E86 .0 Patient returns on September 02, [...] Name 09/02/2024 1 [place]ICARE[place] Vicky Roblero [id number] Vicky Roblero 09/02/2024 2 [employer] (MEDICARE SUPPLEMENT) Vicky Roblero [id number] Vicky Roblero Notes Date Note Type Note Provider Name and Address Organization Details Recorded Time 09/02/2024 text/html 78 yo F returns for evaluation of metastatic colon cancer. Patient recently seen on February 17, 2023 in the emergency room at [facility] with abdominal pain. Patient reported epigastric pain [...] 8.2 hematocrit 29.0. MCV 67.9. Platelet count 629156. Normal cell differential. Low serum folate of [...] with metastatic colorectal cancer. Discussed chemotherapy with [place] based regimen with 5FU Leucovorin if [...] is following with the Coumadin clinic at [facility]. She is scheduled for cardiac [...] study published in September 2022 in the [place] [facility] of combined Avastin therapy with [...] cycle. Will follow up. Hanna Snider PA-C [address], [place], [address], [facility] - [facility] - [place] & [place] 09/02/2024 12:55:35 OBGyn Episode No OBEpisode recorded.
--- NOTE | 2024-09-19 13:19 | CA_ITS ---
FINAL REPORT TECHNIQUE: Multiple transverse and longitudinal images were performed of the right femoral-popliteal deep venous system with augmentation and compression maneuvers. CLINICAL HISTORY: RLE pain and edema. coumadin 2mg per day, compliant with meds. Colon CA mets to liver, recently stopped chemo. Comfort measures only now. Afib, hx of DVT and PE 1 yr ago FINDINGS: Right lower extremity duplex ultrasound demonstrates normal flow in the deep venous system. There is no abnormal echogenicity to suggest thrombus. There is normal compression and augmentation. IMPRESSION: No evidence of right DVT. Reviewed, Interpreted and Dictated by Gwen Smith MD Transcribed by Nathalie Arango Authenticated and [facility]
--- NOTE | 2024-09-19 13:19 | CT_ITS ---
FINAL REPORT TECHNIQUE: Thin section axial images were obtained from the lung apices through the upper abdomen without contrast. This study was performed with techniques to keep radiation doses as low as reasonably achievable (ALARA). Individualized dose reduction techniques using automated exposure control or adjustment of mA and/or kV according to the patient's size were employed. CLINICAL HISTORY: 10 pound weight gain, history of metastatic colon pt states she was told she had fluid on her lungs, SOA COMPARISON: 02/17/2023 FINDINGS: A right Port-A-Cath is present. There is no mediastinal, hilar, or axillary lymphadenopathy. There are prominent coronary artery calcifications. No pleural or pericardial effusion. There is no suspicious pulmonary mass or nodule. There is bilateral lower lobe linear atelectasis. There is no acute osseous abnormality. IMPRESSION: No evidence of metastatic disease to the chest. Reviewed, Interpreted and Dictated by Gwen Smith MD Transcribed by Nathalie Arango Authenticated and [facility]
--- NOTE | 2024-09-19 13:19 | CT_ITS ---
FINAL REPORT TECHNIQUE: Thin section axial images were obtained from the lung bases to the pubic symphysis without IV contrast. Coronal reconstruction images were obtained from the axial data. Exam was performed using dose reduction technique. CLINICAL HISTORY: 10 pound weight gain, history of metastatic colon pt states liver cancer COMPARISON: 02/17/2023 FINDINGS: There are multiple hypodense lesions in the liver consistent with metastases. A lesion in the dome of the right lobe of the liver measures 4.6 cm and previously measured 4.6 cm. A lesion in the posterior right lobe appears stable. A lesion in the inferior right lobe measures 3 cm and previously measured 4.9 cm. Some of these lesions now contain calcifications and there are new areas of capsular fibrosis or retraction which is favored to be treatment related. There is abnormal attenuation surrounding the gallbladder similar to the prior exam. The spleen, adrenal glands, and pancreas are without acute abnormalities. There is no renal stone or hydronephrosis. The GI tract demonstrates no evidence of small bowel obstruction. There has been an interval right colectomy. There is a midline lower abdominal ventral hernia containing fat and small bowel loops. This is new compared to the prior exam. There is new wall thickening in the region of the rectosigmoid junction which could represent focal colitis. A stricture is not excluded. There is a large amount of upstream stool. There is no abdominal or pelvic lymphadenopathy or free fluid. No acute osseous abnormality is identified. IMPRESSION: Appearance of the liver with new calcifications and previously seen metastases with areas of capsular fibrosis and retraction which is favored to be treatment related. Some of these have decreased in size. New lower abdominal wall ventral hernia containing fat and small bowel without obstruction. New acute focal wall thickening at the rectosigmoid junction could be related to a focal colitis. A stricture is not excluded. Reviewed, Interpreted and Dictated by Gwen Smith MD Transcribed by Nathalie Arango Authenticated and . [facility]
--- NOTE | 2024-09-19 13:39 | PC.NURSE ---
Pt assessment completed. Pt noted to have swelling to bilateral legs with pt's right leg being the worst. 1+, Strong pulse, brisk cap refill. Pt endorses feeling short of breath. lung sounds are clear. Port Accessed to collect lab samples.
[2024-09-19 13:52] LABS: Basophils # 0.1 K/mm3 (0-0.2); Basophils % 1.7 % (0.1-2.0); Eosinophils # 0.1 Kmm3 (0.0-0.4); Eosinophils % 1.5 % (0.1-12.0); Hematocrit 26.5 % (37.0-47.0); Hemoglobin 8.5 g/dL (12.2-16.2); Lymphocytes # 1.6 K/mm3 (0.7-4.5); Lymphocytes % 22.3 % (10-50); Mean Corpuscular HGB Conc 32.1 g/dL (31.8-35.4); Mean Corpuscular Volume 90.4 fl (81-99); Mean Platelet Volume 9.7 fl (7.4-10.4); Monocytes # 0.6 K/mm3 (0.1-1.0); Monocytes % 7.9 % (1.7-9.3); Neutrophils # 4.7 K/mm3 (1.8-7.8); Neutrophils % 65.6 % (37.0-80.0); Nucleated Red Blood Cells # 0 10^3/uL; Nucleated Red Blood Cells % 0 %; Platelet Count 280 K/mm3 (142-424); Red Blood Count 2.93 M/mm3 (4.20-5.40); Red Cell Distribution Width 18.4 % (11.5-17.5); Red Cell Distribution Width-SD 60.1 fL; White Blood Count 7.2 K/mm3 (4.8-10.8)
[2024-09-19 13:57] LABS: INR 1.06 (0.9-1.1); Prothrombin Time 11.8 seconds (10.1-12.5)
[2024-09-19 14:02] LABS: Alanine Aminotransferase 20 U/L (12-78); Albumin Level 2.6 g/dl (3.5-5.0); Albumin/Globulin Ratio 0.8 (1.1-1.8); Alkaline Phosphatase 171 U/L (38-126); Anion Gap 10.7 mEq/L (5-15); Aspartate Amino Transferase 37 U/L (14-36); Bilirubin,Total 0.4 mg/dl (0.2-1.3); Blood Urea Nitrogen 12 mg/dl (7-17); Calcium 8.1 mg/dl (8.4-10.2); Carbon Dioxide 27 mmol/L (22.0-30.0); Chloride 102 mmol/L (98-107); Creatinine Clearance Estimated 70 mL/min (50-200); Estimated Glomerular Filt Rate 61 ml/min (>60); GFR (African American) 74 ML/MIN (>60); Globulin 3.1 g/dL (1.3-3.2); Glucose 134 mg/dl (74-100); Potassium 3.7 mmoL/L (3.5-5.1); Sodium 136 mmol/L (136-145); Total Protein,Serum 5.7 g/dl (6.3-8.2)
[2024-09-19 14:18] LABS: Procalcitonin 0.196 ng/mL (0.0-2.0)
[2024-09-19 14:49] LABS: NT Pro Brain Natriuretic Pep. 2010 pg/mL (0-450)
--- NOTE | 2024-09-19 14:50 | PC.NURSE ---
I walked pt to restroom and back to bed when she set back in bed 02 sat was 74 on room air pt stated she does wear 3 liters of 02 at home when needed, pt came back to 96-98 after a few minutes resting in bed no needs at this time
--- NOTE | 2024-09-19 15:27 | PC.NURSE ---
called and spoke with Cony in RAD about Ct reads. she stated the chart was locked and that she would send them a message for an update
--- NOTE | 2024-09-19 16:07 | CT_ITS ---
PROCEDURE INFORMATION: Exam: CTA Chest With Contrast Exam date and time: 09/19/2024 4:18 PM Age: 78 years old Clinical indication: Dyspnea; Additional info: Dyspnea, history of dvt TECHNIQUE: Imaging protocol: Computed tomographic angiography of the chest with contrast. Exam focused on the arteries. 3D rendering (Not supervised by radiologist): MIP and/or 3D reconstructed images were created by the technologist. Radiation optimization: All CT scans at this facility use at least one of these dose optimization techniques: automated exposure control; mA and/or kV adjustment per patient size (includes targeted exams where dose is matched to clinical indication); or iterative reconstruction. Contrast material: ISOVUE 370; Contrast volume: 70 ml; Contrast route: INTRAVENOUS (IV); COMPARISON: CT CHEST WO CON 09/19/2024 1:43 PM FINDINGS: Limitations: Respiratory motion artifact severely degrades images, limiting sensitivity of exam. Tubes, catheters and devices: Right IJ approach central venous port catheter in place with tip in the lower SVC. Pulmonary arteries: No evidence of pulmonary emboli through the level of the segmental pulmonary arteries. Respiratory motion artifact limits evaluation for definitive exclusion of subsegmental pulmonary emboli. Aorta: No evidence of thoracic aortic aneurysm or dissection. Thyroid: Subcentimeter left thyroid nodules incidentally noted. No routine follow-up is recommended per current guidelines. (Reference: Paulino) Lungs: Bibasal subsegmental atelectasis/scarring. No evidence of focal airspace infiltrate or congestive pulmonary edema. Calcified pulmonary granuloma in the left upper lobe consistent with chronic sequelae of prior granulomatous disease, unchanged. Pleural spaces: No pneumothorax. No pleural effusion. Heart: No cardiomegaly. No pericardial effusion. Coronary arteries: Calcific coronary artery disease, unchanged. Lymph nodes: Unremarkable. Liver: Findings in the partially visualized upper abdomen are grossly unchanged from 09/19/2024 CT comminuted multiple liver lesions. Bones/joints: Multi-level bridging and/or beaked disc osteophytes throughout the thoracic spine compatible with diffuse idiopathic skeletal hyperostosis (DISH), unchanged. No evidence of acute osseous abnormality in the chest, noting that the lower ribcage is incompletely imaged. Soft tissues: Unremarkable. IMPRESSION: No acute findings in the chest. No evidence of pulmonary emboli, noting technically inadequate study for definitive exclusion of subsegmental pulmonary emboli. COMMENTS: Consistent with the [employer]'s Incidental Findings Committee white paper (J Am [employer]ata Radiol 2015): In patients aged 35 years and older with an incidental thyroid nodule equal to or greater than 1.[address], MRI or extrathyroidal US, further evaluation with dedicated thyroid US is recommended for patients with normal life expectancy and without comorbidities. For smaller nodules without suspicious features, no further evaluation or follow up is recommended. REFERENCES: Belle Paulino., et al. (2015). Managing Incidental Thyroid Nodules Detected on Imaging: White Paper of the ACR Incidental Thyroid Findings Committee. Journal of the [employer], 12(2), 143-150.
[2024-09-19] MEDS: 0.9 % SODIUM CHLORIDE 50 ML VIAL IV (16:20)
[2024-09-19] MEDS: SODIUM CHLORIDE 0.9% 10ML SYR (RAD ONLY) 10 ML IV (16:20)
[2024-09-19] MEDS: IOPAMIDOL-370 (76%);100ML BOTTLE 70 ML IV (16:20)
--- NOTE | 2024-09-19 17:44 | PC.NURSE ---
Ata Avalos speaking with Dr. Landry about admission. stated he would come to the bedside to evaluate the pt
--- NOTE | 2024-09-19 17:56 | PC.NURSE ---
hospitalist at bedside
--- NOTE | 2024-09-19 18:26 | PC.NURSE ---
called house to request a bed. house at [facility] and will call back
--- NOTE | 2024-09-19 18:42 | PC.NURSE ---
house notified of pt admission and bed request
--- NOTE | 2024-09-19 19:31 | PC.NURSE ---
patient assisted to and from restroom upon request
--- NOTE | 2024-09-19 19:49 | PC.NURSE ---
Patient arrived to floor via wheelchair from ED at 19:46.
--- NOTE | 2024-09-19 19:52 | EXP.HP ---
History of Present Illness *Admission Date: 09/19/24 *Reason for visit:: Shortness of breath *History of present illness: Vicky Roblero is a 78-year-old female with a medical history significant for metastatic colon cancer to the liver who presents with progressive shortness of breath even on 3 L. Patient was recently admitted to our facility for ANMOL and hospice discussions, treated with IV fluids the patient ultimately declined hospice. She states she felt well when she got home but over the past 2 weeks she has gained 10 pounds and has had increased shortness of breath. In the ED, patient was saturating 70% with ambulation on room air. Hemoglobin 8.5. Other workup unremarkable, including CTA chest. On my evaluation, patient had bibasilar crackles. BNP 2000. Case discussed with ED provider and decision was made to admit for HFpEF exacerbation. [facility] Disclaimer: The information contained in this section may have been updated after the patient was seen, as this information can be updated by other users. Medical History Hx of deep venous thrombosis Hx pulmonary embolism Interatrial cardiac shunt PAF (paroxysmal atrial fibrillation) Palpitations Colon cancer metastasized to liver Social History Smoking Status: Never smoker alcohol intake: never current occupational status: other Travel in the last 8 weeks: None Have you lived/traveled outside [place] in past 30 days?: No Contact w/someone who lives/traveled outside US past 30 days?: No Exposure to someone with infectious disease in past 14 days?: No Do you have a fever (greater than 100.4 F or 38 C)?: No Have you tested positive for COVID-19: No Exposed to someone with COVID-19 in past 14 days?: No Do you have a sore throat?: No Do you have a cough?: No Do you have any weakness?: Yes Do you have any diarrhea?: No Are you experiencing any unusual bleeding?: No Do you have any muscle aches/pain?: No Do you have any abdominal pain?: No Are you experiencing loss of taste or smell?: No Other Medical History Have you received the Flu Vaccine for this season: No Have you received the Pneumonia Vaccine: No Meds Home Medications and Allergies Home Medications ?Medication ?Instructions ?Recorded ?Confirmed ?Type folic acid 1 mg tablet 1 mg PO DAILY 06/24/24 09/19/24 History magnesium oxide 400 mg PO DAILY 06/24/24 09/19/24 History duloxetine 30 mg capsule,delayed 30 mg PO DAILY 07/14/24 09/19/24 History release metoprolol succinate 50 mg 50 mg PO HS #30 tabs 07/14/24 09/19/24 Rx tablet,extended release 24 hr potassium chloride 20 mEq 20 meq PO DAILY 07/14/24 09/19/24 History tablet,extended release famotidine 20 mg tablet 20 mg PO BID 09/06/24 09/19/24 History warfarin 1 mg tablet 1 mg PO DAILY 09/06/24 09/19/24 History amoxicillin 500 mg-potassium 1 tab PO TID 6 days #18 tabs 09/07/24 09/19/24 Rx clavulanate 125 mg tablet (Augmentin) azithromycin 250 mg tablet 250 mg PO DAILY 4 days #4 tabs 09/07/24 09/19/24 Rx diphenoxylate-atropine 2.5 1 tab PO TID PRN Abdominal 09/07/24 09/19/24 History mg-0.025 mg tablet Discomfort lorazepam 1 mg tablet 1 mg PO TID PRN Nausea 09/07/24 09/19/24 History metoclopramide HCl 5 mg tablet 5 mg PO TID 09/07/24 09/19/24 History morphine 15 mg immediate release 15 mg PO Q4-6H PRN Pain 09/07/24 09/19/24 History tablet ondansetron 4 mg disintegrating 8 mg (2 x 4 mg) PO TID PRN nausea 09/07/24 09/19/24 Rx tablet and vomiting 5 days #15 tabs oxycodone-acetaminophen 5 mg-325 1 tab PO Q6H PRN pain 5 days #20 09/07/24 09/19/24 Rx mg tablet (Percocet) tabs ropinirole 0.5 mg tablet 0.5 mg PO TID 09/07/24 09/19/24 History New Prescriptions to Start Prescriptions: Allergies Allergy/AdvReac Type Severity Reaction Status Date / Time tetracycline Allergy Rash Verified 09/19/24 14:19 Exam Data for Last 24 hours Vital signs and Labs for Last 24 Hours: Temp Pulse Resp BP Pulse Ox O2 Del Method 98.6 F 82 19 94/73 L 99 Room Air 09/19/24 13:23 09/19/24 19:01 09/19/24 19:01 09/19/24 19:01 09/19/24 19:01 09/19/24 19:01 Laboratory Results - last 24 hr 09/19/24 13:30: WBC 7.2, RBC 2.93 L, Hgb 8.5 L, Hct 26.5 L, MCV 90.4, MCH 29.0, MCHC 32.1, RDW 18.4 H, Plt Count 280, MPV 9.7, Neut % (Auto) 65.6, Lymph % (Auto) 22.3, [place] % (Auto) 7.9, Eos % (Auto) 1.5, Baso % (Auto) 1.7, Neut # (Auto) 4.7, Lymph # (Auto) 1.6, [place] # (Auto) 0.6, Eos # (Auto) 0.1, Baso # (Auto) 0.1, PT 11.8, INR 1.06, Sodium 136, Potassium 3.7, Chloride 102, Carbon Dioxide 27, Anion Gap 10.7, BUN 12, Creatinine 0.90, Estimated Creat Clear 70, Estimated GFR 61, Est GFR ( Amer) 74, Glucose 134 H, Calcium 8.1 L, Total Bilirubin 0.4, AST 37 H, ALT 20, Alkaline Phosphatase 171 H, NT-Pro-B Natriuret Pep 2010 H, Total Protein 5.7 L, Albumin 2.6 L, Globulin 3.1, Albumin/Globulin Ratio 0.8 L, Procalcitonin 0.196 I & O for Last 24 hours: Intake & Output 09/16/24 09/17/24 09/18/24 09/19/24 23:59 23:59 23:59 23:59 Weight 92.986 kg Constitutional Constitutional: no acute distress *Routine HEENT Exam Head: Present normocephalic Eye: Present EOMI and PERRL ENT: Present mucous membranes moist *Routine Neck Exam Neck: Present supple; Absent lymphadenopathy *Routine Respiratory Exam Respiratory: Present CTA bilaterally and crackles *Routine Cardiovascular Exam Cardiovascular: Present RRR *Routine Abdominal Exam Abdominal: Present soft and normoactive bowel sounds; Absent tenderness *Routine Rectal Exam Rectal:: deferred *Routine Genitalia Exam Genitalia:: deferred *Routine Extremities Exam Extremities: Present edema; Absent cyanosis or clubbing *Routine Skin Exam Skin: Present warm; Absent rash *Routine Neurological Exam Neurological: Present alert and oriented X3 Assessment and Plan *Assessment and plan (1) Acute exacerbation of chronic heart failure: Status: Acute Category: Medical Code(s): I50.9 - Heart failure, unspecified Plan Vicky Roblero is a 78-year-old female with a medical history significant for metastatic colon cancer to the liver who presents with progressive shortness of breath even on 3 L. Patient was recently admitted to our facility for ANMOL and hospice discussions, treated with IV fluids the patient ultimately declined hospice. She states she felt well when she got home but over the past 2 weeks she has gained 10 pounds and has had increased shortness of breath. In the ED, patient was saturating 70% with ambulation on room air. Hemoglobin 8.5. Other workup unremarkable, including CTA chest. On my evaluation, patient had bibasilar crackles. BNP 1999. Case discussed with ED provider and decision was made to admit for HFpEF exacerbation. #HFpEF exacerbation ? Progressive shortness of breath, BNP 2009, bibasilar crackles. Desaturated to 70% on room air with ambulation. ? IV Lasix 40 mg twice daily. Follow-up urine output, electrolytes, renal function. ? ECHO June 2024 shows normal biventricular systolic function, diastolic function indeterminate. ? Saturating 99% on room air, has 3 L home O2. #Metastatic colon cancer ? Patient no longer desires to pursue cancer treatment due to significant side effects of chemotherapy. On last visit patient was initially was interested in hospice care, but after discussion with family she elected did not pursue hospice care but still wants to pursue comfort approach to cancer. Presumably because of bad experience with hospice care with a family member. Strongly encourage patient to reconsider, especially in the setting of needing pain management for hepatic pain from metastasis. She states she will follow-up with oncology for further pain management. #Subtherapeutic INR #History of DVT ? Patient takes Coumadin in the setting of cancer, history of DVT. PT/INR 11.8/1.06. ? Continue Coumadin 1 mg daily. #Anxiety/depression ? Continue home duloxetine. QTc 400. #GERD ? Continue home famotidine. Full code DVT prophylaxis: Home warfarin
[2024-09-19] MEDS: FUROSEMIDE 40MG/4ML VIAL 60 MG IV (20:19)
[2024-09-19] MEDS: METOPROLOL SUCCINATE XL 50MG TABLET 50 MG PO (20:19)
[2024-09-19] MEDS: FAMOTIDINE 20MG TABLET 20 MG PO (20:19)
[2024-09-19] MEDS: OXYCODONE 5MG W/APAP 325MG TABLET 1 EACH PO (22:00)
[2024-09-20] VITALS: BP 111/61; PULSE 75; RESP 18; TEMP 36.9; O2SAT 100
--- NOTE | 2024-09-20 03:55 | PC.NURSE ---
Addendum entered by Natalie Coon RN 09/20/24 04:17: Second dose of Percocet 5 was given per JUL for pain reported in the right side of her back. Original Note: Patient is alert and oriented x4. She was observed to have eyes closed, respirations even and unlabored on room air, and no apparent distress for the majority of the night. The patient has an accessed port located to her right chest (history of cancer, chemotherapy). A dose of Lasix (60 mg) was given intravenously per JUL, initiating diuresis. Patient has gotten up to urinate several times since administration, utilizing a bedside commode for bedtime. While visiting with family members earlier this shift (later departed at bedtime), she had ambulated to the bathroom a few times as well. Urine output has been documented accordingly. Urine appearance was light yellow in color and clear in transparency. She has required standby assistance + use a walker during ambulation/transfers. Patient has moderate swelling in her bilateral lower extremities. Very mild redness was noted on her right lower watts. Upon auscultation of her lungs, crackles were heard in the bases bilaterally; diminished sounds were heard throughout. Oxygen saturations have remained > 90%. She has not exhibited the need for oxygen use thus far. Vital signs stable with the occasional soft blood pressure. Heart and bowel sounds were within normal findings. Scheduled medications were administered as appropriately per JUL. One dose of Percocet 5 was given per JUL for chronic pain in her back and right side. Abdomen soft but tender upon palpation. At this time, the patient is resting in bed without any further complaints. No new needs at this time. Call light within reach.
[2024-09-20 04:00] VITALS: BMI 36.9
[2024-09-20] MEDS: OXYCODONE 5MG W/APAP 325MG TABLET 1 EACH PO (04:15)
[2024-09-20 06:21] LABS: Basophils # 0.1 K/mm3 (0-0.2); Basophils % 1.8 % (0.1-2.0); Eosinophils # 0.1 Kmm3 (0.0-0.4); Eosinophils % 1.8 % (0.1-12.0); Hematocrit 24.6 % (37.0-47.0); Hemoglobin 7.9 g/dL (12.2-16.2); Lymphocytes # 1.5 K/mm3 (0.7-4.5); Lymphocytes % 25.1 % (10-50); Mean Corpuscular HGB Conc 32.1 g/dL (31.8-35.4); Mean Corpuscular Volume 90.4 fl (81-99); Mean Platelet Volume 9.7 fl (7.4-10.4); Monocytes # 0.5 K/mm3 (0.1-1.0); Monocytes % 8.5 % (1.7-9.3); Neutrophils # 3.7 K/mm3 (1.8-7.8); Neutrophils % 62.1 % (37.0-80.0); Nucleated Red Blood Cells # 0 10^3/uL; Nucleated Red Blood Cells % 0 %; Platelet Count 271 K/mm3 (142-424); Red Blood Count 2.72 M/mm3 (4.20-5.40); Red Cell Distribution Width 18.7 % (11.5-17.5); Red Cell Distribution Width-SD 61.7 fL
[2024-09-20 06:27] LABS: Albumin Level 2.5 g/dl (3.5-5.0); Chloride 103 mmol/L (98-107); Potassium 3.5 mmoL/L (3.5-5.1); Sodium 138 mmol/L (136-145)
[2024-09-20 06:29] LABS: Alanine Aminotransferase 18 U/L (12-78); Aspartate Amino Transferase 45 U/L (14-36); Blood Urea Nitrogen 11 mg/dl (7-17); Creatinine Clearance Estimated 71 mL/min (50-200); Estimated Glomerular Filt Rate 54 ml/min (>60); GFR (African American) 65 ML/MIN (>60)
[2024-09-20 06:30] LABS: Albumin/Globulin Ratio 0.9 (1.1-1.8); Alkaline Phosphatase 176 U/L (38-126); Anion Gap 6.5 mEq/L (5-15); Bilirubin,Total 0.2 mg/dl (0.2-1.3); Calcium 7.8 mg/dl (8.4-10.2); Carbon Dioxide 32 mmol/L (22.0-30.0); Globulin 2.9 g/dL (1.3-3.2); Glucose 103 mg/dl (74-100); Magnesium 1.1 mg/dl (1.6-2.3); Total Protein,Serum 5.4 g/dl (6.3-8.2)
[2024-09-20 08:00] VITALS: BP 97/51; PULSE 66; RESP 18; TEMP 36.4; O2SAT 98
--- NOTE | 2024-09-20 08:01 | HMH.PHAINT1 ---
Pharmacy Intervention Comments: MEDICATION RECONCILIATION COMPLETED ON PATIENT USING EXTERNAL FILL HISTORY FROM PHARMACY, DISCHARGE SUMMARY FROM PREVIOUS ADMISSION, AND JORJE REPORT. -MAGEN PARTIDAD
[2024-09-20] MEDS: MAGNESIUM SULFATE IN WATER 2 GM/50 ML PIGGYBACK IV ×3 (08:11→10:09)
[2024-09-20] MEDS: DULOXETINE 30MG CAPSULE.DR 30 MG PO (08:14)
[2024-09-20] MEDS: POTASSIUM CHLORIDE 20MEQ TAB 40 MEQ PO ×2 (08:14→12:10)
[2024-09-20] MEDS: FAMOTIDINE 20MG TABLET 20 MG PO (08:14)
[2024-09-20] MEDS: FUROSEMIDE 40MG/4ML VIAL 40 MG IV (08:15)
[2024-09-20] MEDS: ROPINIROLE HCL 0.25 MG TABLET 0.5 MG PO ×2 (08:15→12:10)
--- NOTE | 2024-09-20 10:04 | SW/DCPLANNER ---
Addendum entered by Cony De La Rosa 09/20/24 10:52: I have updated Elida w/ [facility] that patient will return home today. Original Note: I spoke w/ this patient regarding plans once medically stable for discharge. Patient expressed that she is not interested in Hospice services at this time. Patient currently resides at home w/ her daughter and son lives close by. Patient is currently established w/ [facility] services. I will continue to follow up w/ patient and resume home health services at time of discharge. Discharge date is unknown at this time.
[2024-09-20] MEDS: WARFARIN 5MG TABLET 2.5 MG PO (10:10)
--- NOTE | 2024-09-20 11:32 | HMH.OTEV ---
OT Inpatient Evaluation Rehab OT IP Evaluation Start: 09/19/24 19:12 Freq: ONCE Status: Active Protocol: [facility]24 [facility] (Rec: 09/20/24 11:32 [facility] [id number]) Rehab OT IP Assessment Subjective History Pt oriented x 3 on arrival. Pt agreeable to engage in therapy evaluation. Pt admitted on 09/19/24 due to SOB . History and physical: Vicky Roblero is a 78-year- old female with a medical history significant for metastatic colon cancer to the liver who presents with progressive shortness of breath even on 3 L. Patient was recently admitted to our facility for ANMOL and hospice discussions, treated with IV fluids the patient ultimately declined hospice. She states she felt well when she got home but over the past 2 weeks she has gained 10 pounds and has had increased shortness of breath. In the ED, patient was saturating 70% with ambulation on room air. Hemoglobin 8.5. Other workup unremarkable, including CTA chest. On my evaluation, patient had bibasilar crackles . BNP 2000. Case discussed with ED provider and decision was made to admit for HFpEF exacerbation. Subjective Prior to being in the hospital , pt lived at home with her daughter. Pt reports she is normally able to dress and feed herself independently. Her daughter does assist with bathing. She is dependent upon family for completion of all IADLs. Pt's uses a rollator during functional transfers. Objective Patient Orientation Person,Place,Birthday Right Upper Extremity Gross ROM WFL Left Upper Extremity Gross ROM WFL Bed Mobility bed mobility-scooting,bed mobility - supine/sit Assist Level Supervision/Stand by Transfer Training Sit/Stand Transfer Assist Level Supervision/Stand by Lower Body Dressing Ability Standby Assistance Performing Toilet Hygiene Ability Standby Assistance Overall Commode/Toilet Transfer Ability Standby Assistance Commode/Toilet Transfer Technique Sit to/from Ambulatory Rehab OT IP prob,goals,plan Problems Date of Evaluation: 09/20/24 Rehab Potential Rehab Potential Innapropriate for Skilled Therapy Discharge Plan OT Discharge Plan Pt appears to be at her baseline with functional transfers and ADL independence . Pt can return home with daughter's assistance once she is medically stable per physician. Eval Complexity Eval Charge Codes 97305 - Moderate Complexity PHYSICIAN CERTIFICATION: I certify the specified therapy services for [facility] are required, authorized, and reviewed every 30 days.
--- NOTE | 2024-09-20 11:36 | EXP.DC.SUM ---
General Admission date:: 09/19/24 HPI HPI HPI: Vicky Roblero is a 78-year-old female with a medical history significant for metastatic colon cancer to the liver who presents with progressive shortness of breath even on 3 L. Patient was recently admitted to our facility for ANMOL and hospice discussions, treated with IV fluids the patient ultimately declined hospice. She states she felt well when she got home but over the past 2 weeks she has gained 10 pounds and has had increased shortness of breath. In the ED, patient was saturating 70% with ambulation on room air. Hemoglobin 8.5. Other workup unremarkable, including CTA chest. On my evaluation, patient had bibasilar crackles. BNP 1999. Case discussed with ED provider and decision was made to admit for HFpEF exacerbation. Hospital Course Hospital Course Hospital Course: Vicky Roblero is a 78-year-old female with a medical history significant for metastatic colon cancer to the liver who presents with progressive shortness of breath even on 3 L. Patient was recently admitted to our facility for ANMOL and hospice discussions, treated with IV fluids the patient ultimately declined hospice. She states she felt well when she got home but over the past 2 weeks she has gained 10 pounds and has had increased shortness of breath. In the ED, patient was saturating 70% with ambulation on room air. Hemoglobin 8.5. Other workup unremarkable, including CTA chest. On my evaluation, patient had bibasilar crackles. BNP 1999. Case discussed with ED provider and decision was made to admit for HFpEF exacerbation. #HFpEF exacerbation ? Progressive shortness of breath, BNP 2009, bibasilar crackles. Initially desaturated to 70% on room air with ambulation. ? Clinically improved with IV Lasix diuresis. Transition to oral Lasix 40 mg. ? ECHO June 2024 shows normal biventricular systolic function, diastolic function indeterminate. ? Saturating 99% on room air, has 3 L home O2. ? Will follow-up with PCP within 2 weeks. #Metastatic colon cancer ? Patient has decided last month to not pursue cancer treatment due to significant side effects of chemotherapy. On last visit patient was initially was interested in hospice care, but after discussion with family she elected did not pursue hospice care but still wants to pursue comfort approach to cancer as son as opposed to it. Presumably because of bad experience with hospice care with a family member. She states she will follow-up with oncology for further pain management. #Subtherapeutic INR #History of DVT, PE ? Patient takes Coumadin in the setting of cancer, history of DVT. Subtherapeutic PT/INR 11.8/1.06. ? Increased warfarin to 2.5mg daily, will bridge with Lovenox 95 mg twice daily. Has follow-up with Coumadin clinic on 09/23/2024. #Anxiety/depression ? Continue home duloxetine. QTc 400. #GERD ? Continue home famotidine. Exam Data for Last 24 hours Vital signs and Labs for Last 24 Hours: Temp Pulse Resp BP Pulse Ox O2 Del Method 97.5 F L 66 18 97/51 L 98 Room Air 09/20/24 08:00 09/20/24 08:00 09/20/24 08:00 09/20/24 08:00 09/20/24 08:00 09/20/24 11:00 Laboratory Results - last 24 hr 09/19/24 13:30: WBC 7.2, RBC 2.93 L, Hgb 8.5 L, Hct 26.5 L, MCV 90.4, MCH 29.0, MCHC 32.1, RDW 18.4 H, Plt Count 280, MPV 9.7, Neut % (Auto) 65.6, Lymph % (Auto) 22.3, Hardeman % (Auto) 7.9, Eos % (Auto) 1.5, Baso % (Auto) 1.7, Neut # (Auto) 4.7, Lymph # (Auto) 1.6, Hardeman # (Auto) 0.6, Eos # (Auto) 0.1, Baso # (Auto) 0.1, PT 11.8, INR 1.06, Sodium 136, Potassium 3.7, Chloride 102, Carbon Dioxide 27, Anion Gap 10.7, BUN 12, Creatinine 0.90, Estimated Creat Clear 70, Estimated GFR 61, Est GFR ( Amer) 74, Glucose 134 H, Calcium 8.1 L, Total Bilirubin 0.4, AST 37 H, ALT 20, Alkaline Phosphatase 171 H, NT-Pro-B Natriuret Pep 2010 H, Total Protein 5.7 L, Albumin 2.6 L, Globulin 3.1, Albumin/Globulin Ratio 0.8 L, Procalcitonin 0.196 09/20/24 06:00: WBC 6.0, RBC 2.72 L, Hgb 7.9 L, Hct 24.6 L, MCV 90.4, MCH 29.0, MCHC 32.1, RDW 18.7 H, Plt Count 271, MPV 9.7, Neut % (Auto) 62.1, Lymph % (Auto) 25.1, Hardeman % (Auto) 8.5, Eos % (Auto) 1.8, Baso % (Auto) 1.8, Neut # (Auto) 3.7, Lymph # (Auto) 1.5, Hardeman # (Auto) 0.5, Eos # (Auto) 0.1, Baso # (Auto) 0.1, Sodium 138, Potassium 3.5, Chloride 103, Carbon Dioxide 32 H, Anion Gap 6.5, BUN 11, Creatinine 1.00, Estimated Creat Clear 71, Estimated GFR 54 L, Est GFR ( Amer) 65, Glucose 103 H D, Calcium 7.8 L, Magnesium 1.1 L, Total Bilirubin 0.2, AST 45 H, ALT 18, Alkaline Phosphatase 176 H, Total Protein 5.4 L, Albumin 2.5 L, Globulin 2.9, Albumin/Globulin Ratio 0.9 L I & O for Last 24 hours: Intake & Output 09/17/24 09/18/24 09/19/24 09/20/24 23:59 23:59 23:59 23:59 Intake Total 300 / 300 Output Total 0 / 900 1999 / 1999 Balance 0 / -600 -1700 / -1700 Weight 94.619 kg 94.619 kg Constitutional Constitutional: no acute distress and obese *Routine HEENT Exam Head: Present normocephalic Eye: Present EOMI and PERRL ENT: Present mucous membranes moist *Routine Neck Exam Neck: Present supple; Absent lymphadenopathy *Routine Respiratory Exam Respiratory: Present CTA bilaterally *Routine Cardiovascular Exam Cardiovascular: Present RRR *Routine Abdominal Exam Abdominal: Present soft, normoactive bowel sounds and tenderness *Routine Extremities Exam Extremities: Absent cyanosis, clubbing or edema *Routine Skin Exam Skin: Present warm; Absent rash *Routine Neurological Exam Neurological: Present alert and oriented X3 Results Data Completed and Pending Labs on day of discharge: Labs from last 24 hours 09/20/24 09/19/24 06:00 13:30 WBC 6.0 7.2 RBC 2.72 L 2.93 L Hgb 7.9 L 8.5 L Hct 24.6 L 26.5 L MCV 90.4 90.4 MCH 29.0 29.0 MCHC 32.1 32.1 RDW 18.7 H 18.4 H Plt Count 271 280 MPV 9.7 9.7 Neut % (Auto) 62.1 65.6 Lymph % (Auto) 25.1 22.3 Hardeman % (Auto) 8.5 7.9 Eos % (Auto) 1.8 1.5 Baso % (Auto) 1.8 1.7 Neut # (Auto) 3.7 4.7 Lymph # (Auto) 1.5 1.6 Hardeman # (Auto) 0.5 0.6 Eos # (Auto) 0.1 0.1 Baso # (Auto) 0.1 0.1 PT 11.8 INR 1.06 Sodium 138 136 Potassium 3.5 3.7 Chloride 103 102 Carbon Dioxide 32 H 27 Anion Gap 6.5 10.7 BUN 11 12 Creatinine 1.00 0.90 Estimated Creat Clear 71 70 Estimated GFR 54 L 61 Est GFR ( Amer) 65 74 Glucose 103 H D 134 H Calcium 7.8 L 8.1 L Magnesium 1.1 L Total Bilirubin 0.2 0.4 AST 45 H 37 H ALT 18 20 Alkaline Phosphatase 176 H 171 H NT-Pro-B Natriuret Pep 2010 H Total Protein 5.4 L 5.7 L Albumin 2.5 L 2.6 L Globulin 2.9 3.1 Albumin/Globulin Ratio 0.9 L 0.8 L Procalcitonin 0.196 DS: Diagnosis Discharge Diagnosis (1) Acute exacerbation of chronic heart failure: Status: Acute Code(s): I50.9 - Heart failure, unspecified Meds Home Medications and Allergies Home Medications ?Medication ?Instructions ?Recorded ?Confirmed ?Type folic acid 1 mg tablet 1 mg PO DAILY 06/24/24 09/19/24 History magnesium oxide 400 mg PO DAILY 06/24/24 09/19/24 History duloxetine 30 mg capsule,delayed 30 mg PO DAILY 07/14/24 09/19/24 History release potassium chloride 20 mEq 20 meq PO DAILY 07/14/24 09/19/24 History tablet,extended release famotidine 20 mg tablet 20 mg PO BID 09/06/24 09/19/24 History diphenoxylate-atropine 2.5 1 tab PO TIDP PRN Abdominal 09/07/24 09/20/24 History mg-0.025 mg tablet Discomfort lorazepam 1 mg tablet 1 mg PO TIDP PRN Anxiety 09/07/24 09/20/24 History metoclopramide HCl 5 mg tablet 5 mg PO TID 09/07/24 09/19/24 History ropinirole 0.5 mg tablet 0.5 mg PO TID 09/07/24 09/19/24 History enoxaparin 100 mg/mL subcutaneous 95 mg (0.95 mL) SQ Q12H 10 days 09/20/24 Rx syringe #19 mL furosemide 40 mg tablet (Lasix) 40 mg PO DAILY #30 tabs 09/20/24 Rx nystatin 100,000 unit/gram topical 1 applic topical BIDP PRN Rash 09/20/24 09/20/24 History powder (Nystop) oxycodone 5 mg tablet 5 mg PO Q4HP PRN Moderate Pain 09/20/24 09/20/24 History (Scale Score 5-6) warfarin 5 mg tablet (Jantoven) 2.5 mg (1/2 x 5 mg) PO COUMADIN 10 09/20/24 Rx days #10 tabs New Prescriptions to Start Prescriptions: [email or web address] Trejo furosemide [Lasix] Jim Landry warfarin [Jantoven] Jim Landry Allergies Allergy/AdvReac Type Severity Reaction Status Date / Time tetracycline Allergy Rash Verified 09/19/24 14:19 Discharge Plan Disposition Patient Disposition: Home, Self-Care Condition: Fair Follow up Plan Follow up with: Amarilis Nolan APRN [Primary Care Provider] - 09/23/24 2:45 pm Prescriptions/Medication Reconciliation: New warfarin [Jantoven] 5 mg Tablet 2.5 mg PO COUMADIN 10 Days Qty: 10 0RF furosemide [Lasix] 40 mg tablet 40 mg PO DAILY Qty: 30 0RF enoxaparin 100 mg/mL Syringe 95 mg SQ Q12H 10 Days Qty: 19 0RF Continued folic acid 1 mg tablet 1 mg PO DAILY magnesium oxide 400 mg magnesium tablet 400 mg PO DAILY potassium chloride 20 mEq tablet extended release 20 meq PO DAILY Patient Comments: TAKE 1 TABLET BY MOUTH EVERY DAY DIRECTED duloxetine 30 mg capsule,delayed release(DR/EC) 30 mg PO DAILY Patient Comments: TAKE 1 CAPSULE BY MOUTH EVERY DAY famotidine 20 mg tablet 20 mg PO BID Patient Comments: TAKE 1 TABLET BY MOUTH 2 TIMES A DAY ropinirole 0.5 mg tablet 0.5 mg PO TID Patient Comments: TAKE 1 TABLET BY MOUTH 3 TIMES A DAY metoclopramide HCl 5 mg tablet 5 mg PO TID Patient Comments: TAKE 1 TABLET BY MOUTH 3 TIMES A DAY NEEDED lorazepam 1 mg tablet 1 mg PO TIDP PRN (Reason: Anxiety) Patient Comments: TAKE 1 TABLET BY MOUTH 3 TIMES A DAY NEEDED FOR NAUSEA diphenoxylate-atropine 2.5-0.025 mg tablet 1 tab PO TIDP PRN (Reason: Abdominal Discomfort) Patient Comments: TAKE 1 TABLET BY MOUTH 4 TIMES A DAY NEEDED oxycodone 5 mg tablet 5 mg PO Q4HP PRN (Reason: Moderate Pain (Scale Score 5-6)) Patient Comments: TAKE 1 TABLET BY MOUTH EVERY 4 TO 6 HOURS NEEDED nystatin [Nystop] 100,000 unit/gram powder 1 applic TOPICAL BIDP PRN (Reason: Rash) Patient Comments: APPLY TOPICALLY TO THE AFFECTED AREA(S) 2 TIMES PER DAY NEEDED Discontinued metoprolol succinate 50 mg tablet extended release 24 hr 50 mg PO HS Qty: 30 5RF warfarin 1 mg Tablet 1 mg PO DAILY Problem Reconciliation Problems Reviewed?: Yes Patient Discharge Instructions Patient Instructions: DI for Heart Failure, Stop Light Heart Failure Print Language: German Providers Primary Care Provider: Amarilis Nolan Admit Provider: Jim Landry Attending Provider: Jim Landry
--- NOTE | 2024-09-20 12:07 | HMH.PTEV ---
Physical Therapy Evaluation Rehab PT IP Evaluation Start: 09/19/24 19:12 Freq: .once Status: Active Protocol: Document 09/20/24 09:30 PHOMERON (Rec: 09/20/24 12:05 PHORNE [id number]) Subjective/History History History Vicky Roblero is a 78-year- old female with a medical history significant for metastatic colon cancer to the liver who presents with progressive shortness of breath even on 3 L. Patient was recently admitted to our facility for ANMOL and hospice discussions, treated with IV fluids the patient ultimately declined hospice. Patient was admitted to the hospital for HFpEF exacerbation. She currently lives with her daughter, and is able to ambulate independently around the house with a walker. Subjective Subjective Patient presents resting supine in bed this AM. She states that she has been up to the bathroom with nsg multiple times due to her diuretics. She states that she is independent with mobility and uses a RW. She also has home health PT/OT. She is willing to work with PT/OT today and walk to the bathroom . Pt returned to bed with call light in reach and was able to ambulate with SBA. New diagnosis of cancer in past 12 Yes months? [facility] How much help from another person do you currently need... Turning from your back to your side None while in a flat bed without using bedrails? Moving from lying on back to sitting on None the side of a flat bed without using bedrails? Moving to and from a bed to a chair ( None including a wheelchair)? Standing up from a chair using your arms None ? (e.g., wheelchair, bedside chair) Walking in hospital room? None Climbing 3-5 steps with a railing? None Mobility Score 24 Mobility Level [facility] Mobility Calculator Mobility 8 Walk 250 feet or more Rehab PT IP Eval Objective Appearance Patient Behavior Appropriate,Cooperative Patient Orientation Person,Place,Time Difficulty following instructions none Speech Pattern Clear,Appropriate Ambulation Patient Able to Ambulate Yes Ambulation Observation IP General Gait Pattern Observation Wide Based Gait Ambulation Distance (feet) 25 Ambulation Assistive Device Rolling Walker Ambulation Ability Supervision/Stand by Balance Ability to Arise Able, uses arms to help Sitting Balance Steady, safe Standing Balance Steady, wide stance Dynamic Sitting Balance Ability Normal Dynamic Standing Balance Ability Normal Transfers Bed Transfer Ability Independent Sit to Stand Bed Transfer Ability Supervision/Stand by Rehab PT IP prob,goals,plan Problems Date of Evaluation: 09/20/24 Discharge Plan PT Discharge Plan Patient is currently most appropriate to return home with assistance for ADLs and mobility as needed once medically stable for d/c. Skilled acute therapy is not currently indicated as patient is able to ambulate and transfer independently. Home health is recommended to maintain LE strength and endurance to maintain independence with transfers and ambulation. Eval Complexity Eval Charge Codes 17309 - High Complexity PHYSICIAN CERTIFICATION: I certify the specified therapy services for Vicky Roblero are required, authorized, and reviewed every 30 days.
[2024-09-20] MEDS: ENOXAPARIN 100MG/ML SYRINGE 95 MG SUBCUT (12:11)
--- NOTE | 2024-09-21 10:13 | SW/DCPLANNER ---
Spoke with patient on the phone. Patient stated that she is doing very well. Patient stated that she is aware of her upcoming appointment. Patient stated that she was able to get her medicine picked up and that it was very expensive. Patient also stated that some of her medicine wasnt all there and has to go back thursday to get the rest. Patient stated that she has no concerns or questions at this time. Ayan Jones
== END 2024-09-20 13:23 | disposition home health service (06) ==
LOC: ER 18:08 → 2ND 19:16
PROVIDERS: Physician Assistant; Admitting Provider Student in an Organized Health Care Education/Training Program; Emergency Provider Student in an Organized Health Care Education/Training Program; PCP Nurse Practitioner Family; Visit Provider Student in an Organized Health Care Education/Training Program
DX: I11.0 Hypertensive heart disease with heart failure (principal); I50.33 Acute on chronic diastolic (congestive) heart failure; C18.9 Malignant neoplasm of colon, unspecified; K21.9 Gastro-esophageal reflux disease without esophagitis; C78.7 Secondary malignant neoplasm of liver and intrahepatic bile duct; E66.9 Obesity, unspecified; F41.9 Anxiety disorder, unspecified; F32.A Depression, unspecified; Z79.01 Long term (current) use of anticoagulants; Z86.718 Personal history of other venous thrombosis and embolism; Z68.37 Body mass index [BMI] 37.0-37.9, adult; Z79.899 Other long term (current) drug therapy; Z86.711 Personal history of pulmonary embolism; Z95.818 Presence of other cardiac implants and grafts; Z99.81 Dependence on supplemental oxygen
CPT/HCPCS: 71250; 71275; 74176; 80053; 83735; 83880; 84145; 85025; 85610; 93005; 93971; 97163; 97166; 99291; G0378; J1642; J1650; J1938; J3475; Q9967

== ENCOUNTER 2024-09-23 10:53 | Outpatient (CLI) | payer MEDICARE, SELFPAY ==
--- OUTSIDE RECORDS SUMMARY | 2024-09-23 10:55 | XMS_ITS | Continuity of Care Document ---
Author Organization [facility] Oncology and Hematology Address [address] [place] [address] Care Team Providers Care Hiv/Aids Care Nurse Name Role Phone ADDY GONZALES General Surgeon CARLOS A COATS Primary Care Provider VERONIKA RIVER Staff Physical Therapy Assistant [phone] Assessment No assessment recorded. Plan of Treatment Reminders Order Date Submit Date Provider Last Modified By Organization Details Last Modified Time Details Appointments None recorded. Lab CBC w/ auto diff 2024 025 [facility], [address] , [place], [address], 5 09:46:31 CMP, serum or plasma 2024 025 [facility], [address] [place], [address], 5 09:39:00 carcinoembr yonic Ag, quant, serum or plasma 2024 025 [email or web address] [facility], [address] [place], [address], 5 09:16:06 Referral None recorded. Procedures None recorded. Surgeries None recorded. Imaging CT, head + brain, w/o contrast 2024 025 [email or web address] [facility] (Centralized Scheduling), [address] [place], [address], 5 09:16:16 Medication Orders None recorded. Patient TargetsNo targets recorded. Patient InstructionsNo instructions recorded. Reason for Referral None Reported. Results Created Date Observation Date Name Description Value Unit Range Abnormal Flag Note LastModifiedBy Organization Detail LastModifiedTime 07/28/19 25 07/28/2024 CT ABD pel w/ (IV [facility] [address] [place] [address] Phone: Fax: Name: DESHAWN MCMAHAN Exam Date: : 948 Age 78 years Gender : F Access ion: [id number] 2023 Physic jesus: [place] [facility] ty: [facility] Facili ty HSV: Outpat ient Exam: CT ABD PEL W/ (IV ^ ORAL) CT ABDOME N PELVIS WITH IV CONTRA ST 025 2:46 PM [facility] INDICA TION: Female , 78 [...] gs compar e Februa ry 2023, index pct ior segmen t right lobe segmen t [...] Thank you for referr DESHAWN Delgado to [facility]. Legall y authen ticate d by VAMSHI HALL 0 07-28 15:46: 13 CC'ed Logic: Orderi ng Provid er: DIGNA LUGO Attend ing Provid er: DIGNA LUGO Referr ing Provid er: DIGNA LUGO Admitt ing Provid er: DIGNA taylor[address] [place] [address] - Physical Therapy [address] [place] [address], [place], [address], 07/29/2024 11:36:27 08/02/19 25 07/28/2024 CT, chest , w/ contr ast [facility] [address] [place] [address] Phone: Fax: Name: DESHAWN MCMAHAN Exam Date: : 948 Age 78 years Gender : F Access ion: [id number] 2023 Physic jesus: [place] Facili ty: [place] Facili ty HSV: Outpat ient [...] at the cavoat rial juncti on. IMPRES WEDNY: 1. No eviden ce of metast atic [...] Thank you for referr DESHAWN Delgado to [facility] it Hospit al. Legall y authen ticate d by AVIS ALBA IN 07-28 15:46: 34 CC'ed Logic: Orderi ng Provid er: DIGNA LUGO Attend ing Provid er: DIGNA LUGO Referr ing Provid er: DIGNA LUGO Admitt ing Provid er: DIGNA LUGO [email or web address] [facility] - Physical Therapy [address], [place], [address], 08/01/2024 10:49:34 Result Notes None recorded. Problems Name Problem SNOMED Code Status Onset Date Resolution Date Notes Provider Name and Address Organization Details Recorded Time Headache 87276282 Active 2024 Christine Farfan [facility], [place] - [facility] - [place] & [place] 5 10:27:12 Metastatic malignant neoplasm to liver 60191932 Active 2022 Ghassan Lieberman PA-C [address], [place], [address] , [place] [facility] [place] & [place] 3 14:27:25 Mass of colon 737212790 Active 2022 Ghassan Lieberman PA-C [address], [place], [address] , [place] [facility] [place] & [place] 3 14:27:30 Anemia 664472292 Active 2022 Ghassan Lieberman PA-C [address], [place], [address] , [place] [facility] [place] 3 14:27:36 Nausea and vomiting 21198904 Active 2022 Ghassan Lieberman PA-C [address], [place], [address] , [place] [facility] & [place] 3 14:27:46 Unintentional weight loss 512333121 Active [address], [place], [address] , [facility] & [place] 3 16:13:07 Night sweats 07517733 Active [address], [place], [address] , [facility] & [place] 3 16:13:12 Problem Notes None recorded. Procedures Surgical History Date Name Laterality Status Provider Name and Address Organization Details Recorded Time 04/29/20 23 Venipuncture [address], [place], [address], [facility] & [place] 04/27/2023 15:05:29 04/15/20 23 Venipuncture completed Stephanie Maravilla [facility] & [place] 04/15/2023 15:24:55 hysterectomy completed Laurel Samuels [facility] & [place] 03/11/2023 15:30:22 extraction of cataract completed Laurelesvin Samuels [facility] & [place] 03/11/2023 15:30:36 excision of colon completed Loree Tadeo [facility] & [place] 04/21/2023 11:32:07 Imaging Results None recorded. Procedure Notes None recorded. Medical Equipment None Reported. Allergies Allergen ID Allergen Name Allergen Category Reaction Reaction Severity Criticality Documentation Date Start Date Code Code System Note Provider Name and Address Organization Details Recorded Time 13832 tetracycl ine medicatio n hives Not available high 02/19/2023 27475 [facility] [place] 3 14:03:33 Medications Name Sig Start Date [...] Updated DateTime 5 162.56 cm 35.2 kg/m2 11733.4 4 g 97.5 [degF] 98 % 98 % 20 /min 83 /min 140 mm[Hg] 68 mm[Hg] Laurel Samuels [facility] & [place] 5 09:42:28 Social History Question Answer Notes LastModified by Organizat ion Details LastModified Time Tobacco Smoking Status Never Smoker Brandytyler Maciel paramjit [facility] & [place] 02/19/2023 14:02:59 What Is Your Level Of Alcohol Consumption? None [email or web address] Information not available 02/19/2023 What Is Your Level Of Caffeine Consumption? None Information not available 02/19/2023 What Was The Date Of Your Most Recent Tobacco Screening? 11/23/2023 [email or web address] Information not available 11/23/2023 Do You Use Any Illicit Or Recreational Drugs? No [email or web address] Information not available 02/19/2023 Has Tobacco Cessation Counseling Been Provided? No [email or web address] Information not available 07/13/2023 Do You Or Have You Ever Used Any Other Forms Of Tobacco Or Nicotine? No [email or web address] Information not available 02/19/2023 Sex: Unknown Functional Status None recorded. Mental Status None recorded. Family History Nothing Reported. Medical History No medical history recorded. Gynecological HistoryNo gynecological history recorded. Obstetrics History GPAL:G 0 P 0 0 0 0 Immunizations Vaccine Type Date Status Note Provider Nam e and Address Organization Details Recorded Time pneumococcal polysaccharide PPV23 7 completed Stephanie Maravilla paramjit CURT [facility] & [place] 12/21/2023 09:56:34 Past Encounters Encounter ID Performer Location Encounter Start Date Encounter Closed Date Diagnosis/Indication Diagnosis SNOMED-CT Code Diagnosis ICD10 Code Diagnosis Note [id number] Tomy King MD [facility] Oncology and Hematolog y [address] [place] [address] 08/01/2024 11:10:37 08/01/2024 12:30:43 Malignant tumor of ascending colon 806370507 C18.2 CT scan of the abdomen and [...] 8.2 hematocrit 29.0. MCV 67.9. Platelet count 585473. Normal cell differenti al. Low serum folate [...] study published in September 2022 in the [place] [employer] Medicine of combined Avastin therapy with [...] Will follow-up Metastatic malignant neoplasm to liver 65705698 C78.7 CT scan of the abdomen and [...] Findings concerning for metastatic colon cancer. Nausea 982522557 R11.0 As needed Zofran and Phenergan prescribed . Discussed trying scopolamin e patches but her insurance wouldn't cover. She is taking Zofran with relief. Pain due t o neoplastic disease 2106345035 9102 G89.3 She is taking hydrocodon e 7.5 mg b.i.d. Discussed taking medication every 4-6 hours as needed. Anemia 115552155 D64.9 Right-side d colon mass concerning for malignancy . Will assess for any signs of iron deficiency . Hemoglobin previously 8.0. Concern for blood loss from colon mass. Patient reports dark stools. labs on July 25, 2024 with improvemen t of hemoglobin 12.6. Patient is currently receiving infusional iron. Adopted 006839529 Z62.89 8 Patient is adopted and discussed hereditary gene panel. Patient does have family history of her son having bladder cancer. Will send [facility] hereditary panel. Antineopla stic chemotherapy regimen 336923805 Z51.11 Week 1 5FU Leucovorin Vectibix on [...] 2024 due to disease progressio n. Hypokalemia 17955679 E87 .6 Patient returns on April 29, 2023. Potassium is low at 2.9. Will send prescripti on for potassium 20 mEq daily. Will follow-up labs again next week. Deep venou s thrombosis 907659203 I82.409 Patient developed right lower extremity pain [...] duplex. 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 [...] reports depression has improved. Atopic conjunctivitis 23 8998861 H10.12 Patient with conjunctiv itis of the left eye. Held Vectibix on December 07, 2023. Continue with current therapy. Will follow up again in 2 weeks. Patient returns on July 25, 2024. She does have conjunctiv itis of the left eye. Will hold Vectibix today. Will follow up. Iron defic iency anemia 70664134 D50.9 Currently receiving infusional iron. Will continue to monitor. Insomnia 689501458 G47.0 0 Patient returns on February 08, 2024. She has had difficulty sleeping for most of her life. She has tried multiple medication s without relief. She is tried Mirtazapin e and lorazepam without improvemen t of insomnia. Discussed trying trazodone instead. Will send prescripti on. Will send prescripti on for Requip for restless legs. Restless legs 54139159 G 25.81 Patient returns on February 08, [...] with diflucan and nystain powder. Generalized rash 6500896 06 R21 Patient returns on May 30, [...] is following with the Coumadin clinic at [facility]. Congestive heart failure 12992174 I50.9 Patient returns on June 27, 2024. Since previous visit patient has been diagnosed with congestive heart failure and atrial fibrillati on. She has started lasix and is following with a cardiologi st. Cachexia 765005089 R64 Patient returns on July 25, 2024. Patient has had decreased appetite. Continues to lose weight. She has lost 4 more lbs since previous visit. She is drinking nutritiona l supplement s. Discussed appetite stimulant. Patient previously refused. Now she is agreeable to try Megace. Will send prescripti on. Will follow up for angela oakley [id number] Parish Snider PA-C [facility] Oncology and Hematolog y [address] [place] [address] 08/10/2024 09:37:37 08/10/2024 10:29:37 Malignant tumor of ascending colon 140975694 C18.2 CT scan of the abdomen and [...] 8.2 hematocrit 29.0. MCV 67.9. Platelet count 646785. Normal cell differenti al. Low serum folate [...] study published in September 2022 in the [place] [facility] Medicine of combined Avastin therapy with [...] liver lesions. Metastatic malignant neoplasm to liver 64417604 C78.7 CT scan of the abdomen and [...] patient is a candidate for radiation Nausea 575680547 R11.0 As needed Zofran and Phenergan prescribed . Discussed trying scopolamin e patches but her insurance wouldn't cover. She is taking Zofran with relief. Pain due t o neoplastic disease 5531563788 9102 G89.3 She is taking hydrocodon e 7.5 mg b.i.d. Discussed taking medication every 4-6 hours as needed. Anemia 059951880 D64.9 Right-side d colon mass concerning for malignancy . Will assess for any signs of iron deficiency . Hemoglobin previously 8.0. Concern for blood loss from colon mass. Patient reports dark stools. Labs on August 10, 2024 with hemoglobin slightly low at 11.9. She is receiving infusional iron as needed. Adopted 022894110 Z62.89 8 Patient is adopted and discussed hereditary gene panel. Patient does have family history of her son having bladder cancer. [facility] hereditary panel sent Antineopla stic chemotherapy regimen 907782054 Z51.11 Week 1 5FU Leucovorin Vectibix on [...] monitor for tolerabili ty and toxicity. Hypokalemia 75457741 E87 .6 Currently taking for potassium 20 mEq daily. Will follow up labs. Mixed anxi ety and depressive disorder 552023512 F41.8 Patient returns on November 23, 2023. [...] reports depression has improved. Atopic conjunctivitis 23 4867451 H10.12 Conjunctiv itis due to Vectibix. This is improving. Iron defic iency anemia 53396748 D50.9 Currently receiving infusional iron as needed. Will continue to monitor. Insomnia 744609762 G47.0 0 Patient has had difficulty sleeping for most of her life. She has tried multiple medication s without relief. She is tried Mirtazapin e and lorazepam without improvemen t of insomnia. Discussed trying trazodone instead. Restless legs 18901538 G 25.81 Patient taking Requip for restless legs. Generalized rash 1627821 06 R21 Patient with rash due to Vectibix. This is improving. Atrial fibrillation 4943 6004 I48.91 Patient has been diagnosed with congestive heart failure and atrial fibrillati on. She has been started on Coumadin. She is following with the Coumadin clinic at [facility]. Congestive heart failure 69555108 I50.9 Patient has been diagnosed with congestive heart failure. She has started lasix and is following with a cardiologi Cachexia 455528768 R64 Patient has had decreased appetite and weight loss. She is drinking nutritiona l supplement s. Discussed appetite stimulant. Patient previously refused. She has started on Megace. Will continue to monitor History of deep vein thrombosis 960773599 Z86.718 Patient developed right lower extremity pain [...] repeat venous duplex. Drug therapy finding 309 006985 Z79.01 She continues on Coumadin due to a fib. She is following with the Coumadin clinic at [facility]. [id number] [facility] Oncology and Hematolog y [address] [place] [address] 08/25/2024 09:02:23 08/25/2024 09:51:52 Antineoplastic chemotherapy regimen 935076057 Z51.11 Week 1 5FU Leucovorin Vectibix on [...] and toxicity. Malignant tumor of ascending colon 206027008 C18.2 CT scan of the abdomen and [...] 8.2 hematocrit 29.0. MCV 67.9. Platelet count 764619. Normal cell differenti al. Low serum folate [...] study published in September 2022 in the [place] [facility] Medicine of combined Avastin therapy with [...] liver lesions. Metastatic malignant neoplasm to liver 42818036 C78.7 CT scan of the abdomen and [...] patient is a candidate for radiation Nausea 526535134 R11.0 As needed Zofran and Phenergan prescribed . Discussed trying scopolamin e patches but her insurance wouldn't cover. She is taking Zofran with relief. Pain due t o neoplastic disease 1347757790 9102 G89.3 She is taking hydrocodon e [...] does take her current medication s Anemia 291140139 D64.9 Right-side d colon mass concerning for malignancy . Will assess for any signs of iron deficiency . Hemoglobin previously 8.0. Concern for blood loss from colon mass. Patient reports dark stools. Labs on August 10, 2024 with hemoglobin slightly low at 11.9. She is receiving infusional iron as needed. Adopted 036900264 Z62.89 8 Patient is adopted and discussed hereditary gene panel. Patient does have family history of her son having bladder cancer. [facility] hereditary panel sent Hypokalemia 49187889 E87 .6 Currently taking for potassium 20 mEq daily. Will follow up labs. Mixed anxi ety and depressive disorder 217068511 F41.8 Patient returns on November 23, 2023. [...] reports depression has improved. Atopic conjunctivitis 23 1658049 H10.12 Conjunctiv itis due to Vectibix. This is improving. Iron defic iency anemia 60970555 D50.9 Receiving infusional iron as needed. Will continue to monitor. Insomnia 407104956 G47.0 0 Patient has had difficulty sleeping for most of her life. She has tried multiple medication s without relief. She is tried Mirtazapin e and lorazepam without improvemen t of insomnia. Discussed trying trazodone instead. Restless legs 69708260 G 25.81 Patient taking Requip for restless legs. Generalized rash 7162558 06 R21 Rash due to Vectibix. This has improved. Atrial fibrillation 4943 6004 I48.91 Patient has been diagnosed with congestive heart failure and atrial fibrillati on. She has been started on Coumadin. She is following with the Coumadin clinic at [facility]. Congestive heart failure 22024872 I50.9 Patient has been diagnosed with congestive heart failure. She has started lasix and is following with a cardiologi Cachexia 492706650 R64 Patient has had decreased appetite and weight loss. She is drinking nutritiona l supplement s. Discussed appetite stimulant. Patient previously refused. She has started on Megace. She does not like the taste of Megace. Discussed Megace tablets instead of liquid but patient declines at this time. Will continue to monitor History of deep vein thrombosis 104103817 Z86.718 Patient developed right lower extremity pain [...] repeat venous duplex. Drug therapy finding 309 603433 Z79.01 She continues on Coumadin due to a fib. She is following with the Coumadin clinic at [facility]. Acute post traumatic headache 9623097701 50910 G44.319 Patient returns on August 25, 2024. [...] Internatio nal normalized ratio above reference range 554783562 R79.1 Patient returns on August 25, 2024. [...] Name 08/25/2024 1 [place] Deshawn Roblero [id number] Deshawn Roblero 08/25/2024 2 [employer] (MEDICARE SUPPLEMENT) Deshawn Roblero [id number] Deshawn Roblero Notes Date Note Type Note Provider Name and Address Organization Details Recorded Time 08/25/2024 text/html 78 yo F returns for evaluation of metastatic colon cancer. Patient recently seen on February 17, 2023 in the emergency room at [facility] with abdominal pain. Patient reported [...] 8.2 hematocrit 29.0. MCV 67.9. Platelet count 505245. Normal cell differential. Low serum folate of [...] with metastatic colorectal cancer. Discussed chemotherapy with [place] based regimen with 5FU Leucovorin if [...] is following with the Coumadin clinic at [facility]. She is scheduled for cardiac MRI. [...] study published in September 2022 in the [place] Journal Medicine of combined Avastin therapy with [...] toxicity. Parish Snider PA-C [address], [place], [address], [facility] - [place] & [place] 08/25/2024 10:43:13 OBGyn Episode No OBEpisode recorded.
--- OUTSIDE RECORDS SUMMARY | 2024-09-23 10:56 | XMS_ITS | Continuity of Care Document ---
Author Organization [facility] Address [address] [facility] [facility] [address] [place] [address] Care Team Providers Care Distribution Driver Name Role Phone ADDY GONZALES General Surgeon CARLOS A COATS Primary Care Provider VERONIKA RIVER Pan Dumper Assessment No assessment recorded. Plan of Treatment Reminders Order Date Submit Date Provider Last Modified By Organization Details Last Modified Time Details Appointments None recorded. Lab carcinoembr yonic Ag, quant, serum or plasma 2024 025 [email or web address] 6 [facility], [address] [place], [address], 5 09:07:03 CMP, serum or plasma 2024 025 [email or web address] [facility], [address] [place], [address], 5 11:45:06 CBC w/ diff 2024 025 [email or web address] 6 [facility], [address] [place], [address], 5 09:07:03 Referral None recorded. Procedures None recorded. Surgeries None recorded. Imaging None recorded. Medication Orders megestrol 400 mg/10 mL (40 mg/mL) oral suspension 2024 025 [email or web address], [address] [place], [address], 11:45:06 Patient TargetsNo targets recorded. Patient InstructionsNo instructions recorded. Reason for Referral None Reported. Results Created Date Observation Date Name Description Value Unit Range Abnormal Flag Note LastModifiedBy Organization Detail LastModifiedTime 07/28/1907/28/2024 CT ABD pel w/ (IV [facility] [address] [place] [address] Phone: Fax: Name: DESHAWN MCMAHAN Exam Date: : 948 Age 78 years Gender : F Access ion: [id number] 2023 Physic jesus: [facility] PARKERi ty: [facility] Facili ty HSV: Outpat ient Exam: CT ABD PEL W/ (IV ^ ORAL) CT ABDOME N PELVIS WITH IV CONTRA ST 025 2:46 PM [facility] INDICA TION: Female , 78 [...] gs compar e Februa ry 2023, 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 Legall y authen ticate d by VAMSHI HALL 07-28 15:46: 13 CC'ed Logic: Orderi ng Provid er: DIGNA LUGO Attend ing Provid er: DIGNA LUGO Referr ing Provid er: DIGNA LUGO Admitt ing Provid er: DIGNA taylor[address] [place] [address] - Physical Therapy [address] [facility], [place], [address], 07/29/2024 11:36:27 08/02/19 25 07/28/2024 CT, chest , w/ contr ast [facility] [address] [place] [address] Phone: Fax: Name: ANGELINA DIGGS DESHAWN Exam Date: 025 : 948 Age 78 years Gender : F Access ion: [id number] 2023 Physic jesus: [facility] P[facility]ER Facili ty: [facility] Facili ty HSV: Outpat ient [...] Thank you [facility] Legall y authen ticate d by AVIS ALBA IN 07-28 15:46: 34 CC'ed Logic: Orderi ng Provid er: DIGNA LUGO Attend ing Provid er: DIGNA LUGO Referr ing Provid er: DIGNA LUGO Admitt ing Provid er: IDGNA LUGO [email or web address] [facility] [address], [place], [address], 08/01/2024 10:49:34 Result Notes None recorded. Problems Name Problem SNOMED Code Status Onset Date Resolution Date Notes Provider Name and Address Organization Details Recorded Time Headache 77308322 Active 2024 Christine Farfan [place], [place] - [facility] & [place] 5 10:27:12 Metastatic malignant neoplasm to liver 44688473 Active 2022 Ghassan Lieberman PA-C [address], [place], [address] , [place] - [facility] & [place] 3 14:27:25 Mass of colon 729759358 Active 2022 Ghassan Lieberman PA-C [address], [place], [address] , [place] - [facility] & [place] 3 14:27:30 Anemia 794709728 Active 2022 Ghassan Lieberman PA-C [address], [place], [address] , [place] - [facility] & [place] 3 14:27:36 Nausea and vomiting 83011401 Active 2022 Ghassan Lieberman PA-C [address], [place], [address] , [place] - [facility] & [place] 3 14:27:46 Unintentional weight loss 337010223 Active 2022 Ghassan Lieberman PA-C [address], [place], [address] , [facility] & [place] 3 16:13:07 Night sweats 07027429 Active [address], [facility] [address] , [facility] & [place] 3 16:13:12 Problem Notes None recorded. Procedures Surgical History Date Name Laterality Status Provider Name and Address Organization Details Recorded Time 04/29/20 23 Venipuncture completed Parish Snider PA-C [address] , [place], [address], [facility] & [place] 04/27/2023 15:05:29 04/15/20 23 Venipuncture completed Stephanie Maravilla [facility] & [place] 04/15/2023 15:24:55 hysterectomy completed Laurel Samuels [facility] & [place] 03/11/2023 15:30:22 extraction of cataract completed Laurelesvin Samuels [facility] & [place] 03/11/2023 15:30:36 excision of colon completed Loree Tadeo [facility] & [place] 04/21/2023 11:32:07 Imaging Results None recorded. Procedure Notes None recorded. Medical Equipment None Reported. Allergies Allergen ID Allergen Name Allergen Category Reaction Reaction Severity Criticality Documentation Date Start Date Code Code System Note Provider Name and Address Organization Details Recorded Time 45820 tetracycl ine medicatio n hives Not available high 02/19/2023 29234 RxNorm Brandytyler yusuf [facility] & [place] 3 14:03:33 Medications Name Sig Start Date [...] Updated DateTime 5 162.56 cm 36 kg/m2 80542.4 g 98 [degF] 97 % 97 % 98 /min 132 mm[Hg] 72 mm[Hg] Akilah Stump [facility] & [place] 5 10:42:43 Social History Question Answer Notes LastModified by Organizat ion Details LastModified Time Tobacco Smoking Status Never Smoker Brandy Maciel [facility] & [place] 02/19/2023 14:02:59 What Is Your Level Of Alcohol Consumption? None [email or web address] Information not available 02/19/2023 What Is Your Level Of Caffeine Consumption? None [email or web address] Information not available 02/19/2023 What Was The Date Of Your Most Recent Tobacco Screening? 11/23/2023 Information not available 11/23/2023 Do You Use Any Illicit Or Recreational Drugs? No [email or web address] Information not available 02/19/2023 Has Tobacco Cessation Counseling Been Provided? No Information not available 07/13/2023 Do You Or Have You Ever Used Any Other Forms Of Tobacco Or Nicotine? No [email or web address] Information not available 02/19/2023 Sex: Unknown Functional Status None recorded. Mental Status None recorded. Family History Nothing Reported. Medical History No medical history recorded. Gynecological HistoryNo gynecological history recorded. Obstetrics History GPAL:G 0 P 0 0 0 0 Immunizations Vaccine Type Date Status Note Provider Nam e and Address Organization Details Recorded Time pneumococcal polysaccharide PPV23 7 completed [facility] [place] 12/21/2023 09:56:34 Past Encounters Encounter ID Performer Location Encounter Start Date Encounter Closed Date Diagnosis/Indication Diagnosis SNOMED-CT Code Diagnosis ICD10 Code Diagnosis Note [id number] Parish Snider PA-C [facility] [address] [place] [address] 06/27/2024 09:58:37 06/27/2024 10:53:58 Malignant tumor of ascending colon 734622750 C18.2 CT scan of the abdomen and [...] 8.2 hematocrit 29.0. MCV 67.9. Platelet count 879098. Normal cell differenti al. Low serum folate [...] is following with the Coumadin clinic at [facility]. She is scheduled for cardiac MRI. Patient [...] up labs. Metastatic malignant neoplasm to liver 90871822 C78.7 CT scan of the abdomen and [...] Findings concerning for metastatic colon cancer. Nausea 112877945 R11.0 As needed Zofran and Phenergan prescribed . Discussed trying scopolamin e patches but her insurance wouldn't cover. Pain due t o neoplastic disease 3593116798 9102 G89.3 Right upper quadrant pain secondary to liver metastasis . Patient currently taking Tylenol. Discussed as needed oxycodone to limit Tylenol exposure. Anemia 820697058 D64.9 Right-side d colon mass concerning for malignancy . Will assess for any signs of iron deficiency . Most recent hemoglobin at 8.0. Concern for blood loss from colon mass. Patient reports dark stools. Adopted 472678917 Z62.89 8 Patient is adopted and discussed hereditary gene panel. Patient does have family history of her son having bladder cancer. Will send [facility] hereditary panel. Antineopla stic chemotherapy regimen 832468006 Z51.11 Week 1 5FU Leucovorin Vectibix on [...] Patient will receive not Vectibix today. Hypokalemia 80705662 E87 .6 Patient returns on April 29, 2023. Potassium is low at 2.9. Will send prescripti on for potassium 20 mEq daily. Will follow-up labs again next week. Deep venou s thrombosis 707598649 I82.409 Patient developed right lower extremity pain [...] duplex. Mixed anxi ety and depressive disorder 709120168 F41.8 Patient returns on November 23, 2023. [...] prescripti on for Cymbalta. Atopic conjunctivitis 23 1057667 H10.12 Patient with conjunctiv itis of the left eye. Held Vectibix on December 07, 2023. Continue with current therapy. Will follow up again in 2 weeks. Iron defic iency anemia 36999479 D50.9 Will follow up labs Insomnia 099544821 G47.0 0 Patient returns on February 08, 2024. She has had difficulty sleeping for most of her life. She has tried multiple medication s without relief. She is tried Mirtazapin e and lorazepam without improvemen t of insomnia. Discussed trying trazodone instead. Will send prescripti on. Will send prescripti on for Requip for restless legs. Restless legs 14293533 G 25.81 Patient returns on February 08, [...] patient has not received Vectibix. Generalized rash 4999902 06 R21 Patient returns on May 30, [...] is following with the Coumadin clinic at [facility]. Congestive heart failure 79505042 I50.9 Patient returns on June 27, 2024. Since previous visit patient has been diagnosed with congestive heart failure and atrial fibrillati on. She has started lasix and is following with a cardiologi st. [id number] Parish Snider PA-C [facility] [address] [place] [address] 07/11/2024 09:55:48 07/11/2024 10:53:23 Malignant tumor of ascending colon 146883694 C18.2 CT scan of the abdomen and [...] 8.2 hematocrit 29.0. MCV 67.9. Platelet count 246039. Normal cell differenti al. Low serum folate [...] up labs. Metastatic malignant neoplasm to liver 58303212 C78.7 CT scan of the abdomen and [...] Findings concerning for metastatic colon cancer. Nausea 070309754 R11.0 As needed Zofran and Phenergan prescribed . Discussed trying scopolamin e patches but her insurance wouldn't cover. She is taking Zofran with relief. Pain due t o neoplastic disease 2436237399 9102 G89.3 She is taking hydrocodon e 7.5 mg b.i.d. Discussed taking medication every 4-6 hours as needed. Anemia 345478277 D64.9 Right-side d colon mass concerning for malignancy . Will assess for any signs of iron deficiency . Most recent hemoglobin at 8.0. Concern for blood loss from colon mass. Patient reports dark stools. Adopted 128178300 Z62.89 8 Patient is adopted and discussed hereditary gene panel. Patient does have family history of her son having bladder cancer. Will send [facility] hereditary panel. Antineopla stic chemotherapy regimen 088454043 Z51.11 Week 1 5FU Leucovorin Vectibix on [...] 2024. Patient will receive Vectibix today. Hypokalemia 58441821 E87 .6 Patient returns on April 29, 2023. Potassium is low at 2.9. Will send prescripti on for potassium 20 mEq daily. Will follow-up labs again next week. Deep venou s thrombosis 284273347 I82.409 Patient developed right lower extremity pain [...] duplex. Mixed anxi ety and depressive disorder 237414438 F41.8 Patient returns on November 23, 2023. [...] prescripti on for Cymbalta. Atopic conjunctivitis 23 6598410 H10.12 Patient with conjunctiv itis of the left eye. Held Vectibix on December 07, 2023. Continue with current therapy. Will follow up again in 2 weeks. Iron defic iency anemia 23213536 D50.9 Will follow up labs Insomnia 052535974 G47.0 0 Patient returns on February 08, 2024. She has had difficulty sleeping for most of her life. She has tried multiple medication s without relief. She is tried Mirtazapin e and lorazepam without improvemen t of insomnia. Discussed trying trazodone instead. Will send prescripti on. Will send prescripti on for Requip for restless legs. Restless legs 56110794 G 25.81 Patient returns on February 08, [...] patient has not received Vectibix. Generalized rash 9734902 06 R21 Patient returns on May 30, [...] is following with the Coumadin clinic at [facility]. Congestive heart failure 57627320 I50.9 Patient returns on June 27, 2024. Since previous visit patient has been diagnosed with congestive heart failure and atrial fibrillati on. She has started lasix and is following with a cardiologi st. [id number] Jana España MD [facility] [address] [place] [address] 07/06/2024 10:53:43 07/08/2024 03:53:47 Seen by palliative care service 798142076 Z51.5 Introduced services today. Dtr and son would be NOK - she feels important to start thinking about completion of LW/AD- I provided copies today and [facility] and will plan to f/u on this is two weeks. Encouraged her to think about HCS/code status. Still wants to continue chemo and has scans next week - did not discuss hospice, but eligible at any point Pain due t o neoplastic disease 3860067810 9102 G89.3 Uncontroll ed, had lortab prescribed which manages pain well when she takes medication . Encouraged adherence. Mixed anxi ety and depressive disorder 069726654 F41.8 Uncontroll ed. Not taking cymbalta. Encouraged adherence and PRN ativan for breakthrou gh syptoms. Did not wish to pursue CBt at this time, will d/w Elsa for additional support options moving forward Nausea and vomiting 1692 1999 R11.2 Related to malignancy vs. Chemo. Improved with PRN and qAM zofran, likely related to chemo vs. malignancy Loss of appetite 4999921 6 R63.0 Related to malignancy . Not taking mirtazapin e. Does not want to add additional Rx at this itme or see nutritioni st. [id number] Parish Snider PA-C [facility] [address] [place] [address] 07/25/2024 10:19:02 07/25/2024 10:39:35 Malignant tumor of ascending colon 383282491 C18.2 CT scan of the abdomen and [...] 8.2 hematocrit 29.0. MCV 67.9. Platelet count 208976. Normal cell differenti al. Low serum folate [...] Vectibix today. Metastatic malignant neoplasm to liver 41064420 C78.7 CT scan of the abdomen and [...] Findings concerning for metastatic colon cancer. Nausea 274823669 R11.0 As needed Zofran and Phenergan prescribed . Discussed trying scopolamin e patches but her insurance wouldn't cover. She is taking Zofran with relief. Pain due t o neoplastic disease 3187755877 9102 G89.3 She is taking hydrocodon e 7.5 mg b.i.d. Discussed taking medication every 4-6 hours as needed. Anemia 129065100 D64.9 Right-side d colon mass concerning for malignancy . Will assess for any signs of iron deficiency . Hemoglobin previously 8.0. Concern for blood loss from colon mass. Patient reports dark stools. labs on July 25, 2024 with improvemen t of hemoglobin 12.6. Patient is currently receiving infusional iron. Adopted 803168716 Z62.89 8 Patient is adopted and discussed hereditary gene panel. Patient does have family history of her son having bladder cancer. Will send [facility] hereditary panel. Antineopla stic chemotherapy regimen 691858795 Z51.11 Week 1 5FU Leucovorin Vectibix on [...] Patient will not receive Vectibix today. Hypokalemia 44601394 E87 .6 Patient returns on April 29, 2023. Potassium is low at 2.9. Will send prescripti on for potassium 20 mEq daily. Will follow-up labs again next week. Deep venou s thrombosis 104668470 I82.409 Patient developed right lower extremity pain [...] duplex. Mixed anxi ety and depressive disorder 769188256 F41.8 Patient returns on November 23, 2023. [...] reports depression has improved. Atopic conjunctivitis 23 7881229 H10.12 Patient with conjunctiv itis of the left eye. Held Vectibix on December 07, 2023. Continue with current therapy. Will follow up again in 2 weeks. Patient returns on July 25, 2024. She does have conjunctiv itis of the left eye. Will hold Vectibix today. Will follow up. Iron defic iency anemia 88792463 D50.9 Currently receiving infusional iron. Will continue to monitor. Insomnia 253548756 G47.0 0 Patient returns on February 08, 2024. She has had difficulty sleeping for most of her life. She has tried multiple medication s without relief. She is tried Mirtazapin e and lorazepam without improvemen t of insomnia. Discussed trying trazodone instead. Will send prescripti on. Will send prescripti on for Requip for restless legs. Restless legs 41833950 G 25.81 Patient returns on February 08, [...] with diflucan and nystain powder. Generalized rash 9396669 06 R21 Patient returns on May 30, [...] is following with the Coumadin clinic at [facility]. Congestive heart failure 45129631 I50.9 Patient returns on June 27, 2024. Since previous visit patient has been diagnosed with congestive heart failure and atrial fibrillati on. She has started lasix and is following with a cardiologi st. Cachexia 660622509 R64 Patient returns on July 25, 2024. [...] Name 07/25/2024 1 [place] Deshawn Roblero [id number] Deshawn Roblero 07/25/2024 2 [employer] (MEDICARE SUPPLEMENT) Deshawn Roblero [id number] Deshawn Roblero Notes Date Note Type Note Provider Name and Address Organization Details Recorded Time 07/25/2024 text/html 78 yo F returns for evaluation of metastatic colon cancer. Patient recently seen on February 17, 2023 in the emergency room at [facility] with abdominal pain. Patient reported [...] 8.2 hematocrit 29.0. MCV 67.9. Platelet count 054008. Normal cell differential. Low serum folate of [...] with metastatic colorectal cancer. Discussed chemotherapy with [place] based regimen with 5FU Leucovorin if [...] is following with the Coumadin clinic at [facility]. She is scheduled for cardiac MRI. Patient [...] Will follow up labs. Parish Snider PA-C [address], [place], [address], [place] - [facility] - [place] & [place] 07/25/2024 11:22:44 OBGyn Episode No OBEpisode recorded.
--- OUTSIDE RECORDS SUMMARY | 2024-09-23 10:57 | XMS_ITS | Data Portability ---
Author Organization [facility] & BERNIE Guerrero ADMIN Address [address] [place] [id number] Care Team Providers Care Department Chairperson Name Role Phone ADDY GONZALES General Surgeon CARLOS A COATS Primary Care Provider [phone] VERONIKA RIVER Television Reporter Assessment No assessment recorded. Plan of Treatment Reminders Order Date Submit Date Provider Last Modified By Organization Details Last Modified Time Details Appointments None recorded. Lab culture, stool 2024 025 [email or web address], [address] [place], [address], 5 11:40:08 O&P (ova & parasites), stool 2024 025 [facility], [address] [place], [address], 5 11:40:09 C diff screen, stool, reflex PCR 2024 025 [email or web address], [address] [place], [address], 5 11:40:09 CBC w/ auto diff 2024 025 [facility], [address] [place], [address], 5 16:09:44 CMP, serum or plasma 2024 025 [facility], [address] [place], [address], 5 14:45:24 CBC w/ auto diff 2024 025 [facility], [address] [place], [address], 5 09:46:31 CMP, serum or plasma 2024 025 [facility], [address] [place], [address], 5 09:39:00 carcinoembr yonic Ag, quant, serum or plasma 2024 025 [email or web address] 6 [facility], [address] [place], [address], 5 09:16:06 carcinoembr yonic Ag, quant, serum or plasma 2024 025 [email or web address] 6 [facility], [address] [place], [address], 5 09:07:03 CMP, serum or plasma [facility] [address] [place], [address], 5 11:45:06 CBC w/ diff 2024 025 [email or web address] 6 [facility], [address] [place], [address], 5 09:07:03 Referral radiation oncologist referral 2024 025 [email or web address] 6 Mary Valencia MD, [address] [place], [address], 5 08:24:10 Procedures None recorded. Surgeries None recorded. Imaging CT, head + brain, w/o contrast 2024 025 [email or web address] [facility] (Centralized Scheduling), [address], [place], [address], 09:16:16 Medication Orders ondansetron 8 mg disintegrat ing tablet [address] [facility], [address] [place], [address], 5 12:29:05 Pepcid 20 mg tablet [address] [facility] [address], [address] [place], [address], 5 12:29:05 megestrol 400 mg/10 mL (40 mg/mL) oral suspension [email or web address] [facility], [address] [place], [address], 5 11:59:15 megestrol 400 mg/10 mL (40 mg/mL) oral suspension [address] [facility] [address], [address] [place], [address], 5 11:45:06 Patient TargetsNo targets recorded. Patient InstructionsNo instructions recorded. Reason for Referral Referring Physician: Hanna Snider, Hematology/Oncology, Encounter Date: 08/10/2024 Results Created Date Observation Date Name Description Value Unit Range Abnormal Flag Note LastModifiedBy Organization Detail LastModifiedTime 06/27/1906/27/2024 CBC AUTO W DIFF WBC 10.0 K/uL 4.0-10 .5 Not Available [facility] ([facility]) [address], [place], [address], 06/27/2024 10:19:00 06/27/1906/2706/27/2024 CBC AUTO W DIFF RBC 4.0 M/mm3 4.2-6. 4 low Not Available [facility] ([facility]) [address] , [place], [address], 06/27/2024 10:19:00 06/27/19 25 06/27/2024 CBC AUTO W DIFF HGB 11.5 gm/dL 12.5-1 6.0 low Not Available [facility] ([facility]) [address] , [place], [address], 06/27/2024 10:19:00 06/27/19 25 06/27/2024 CBC AUTO W DIFF HCT 36.0 % 37.0-4 7.0 low Not Available [facility] ([facility]) [address] , [place], [address], 06/27/2024 10:19:00 06/27/19 25 06/27/2024 CBC AUTO W DIFF MCV 91.1 fL 78-100 Not Available [facility] ([facility]) [address] , [place], [address], 06/27/2024 10:19:00 06/27/19 25 06/27/2024 CBC AUTO W DIFF MCH 29.1 pg 27-31 Not Available [facility] ([facility]) [address] , [place], [address], 06/27/2024 10:19:00 06/27/19 25 06/27/2024 CBC AUTO W DIFF MCHC 31.9 g/dL 32-36 low Not Available [facility] ([facility]) [address] [place], [address], 06/27/2024 10:19:00 06/27/19 25 06/27/2024 CBC AUTO W DIFF RDW 15.9 % 11.5-1 4.0 high Not Available [facility] ([facility]) [address] [place], [address], 06/27/2024 10:19:00 06/27/19 25 06/27/2024 CBC AUTO W DIFF platelet count 311 K/uL 150-45 0 Not Available [facility] ([facility]) [address], [place], [address], 06/27/2024 10:19:00 06/27/19 25 06/27/2024 CBC AUTO W DIFF MPV 9.1 fL 6-9.5 Not Available [facility] ([facility]) [address], [place], [address], 06/27/2024 10:19:00 06/27/19 25 06/27/2024 CBC AUTO W DIFF neutrophil% 70.9 % 43-65 high Not Available [facility] ([facility]) [address], [place], [address], 06/27/2024 10:19:00 06/27/19 25 06/27/2024 CBC AUTO W DIFF lymphocyte% 13.3 % 20.5-4 5.5 low Not Available [facility] ([facility]) [address] [place], [address], 06/27/2024 10:19:00 06/27/19 25 06/27/2024 CBC AUTO W DIFF monocyte% 7.2 % 5.5-11 .7 Not Available [facility] ([facility]) [address] [place], [address], 06/27/2024 10:19:00 06/27/19 25 06/27/2024 CBC AUTO W DIFF eosinophil% 7.4 % 0.9-2. 9 high Not Available [facility] ([facility]) [address] [place], [address], 06/27/2024 10:19:00 06/27/19 25 06/27/2024 CBC AUTO W DIFF basophil% 0.8 % 0.2-1. 0 Not Available [facility] ([facility]) [address], [place], [address], 06/27/2024 10:19:00 06/27/19 25 06/27/2024 CBC AUTO W DIFF immature granulocytes % 0.4 % 0.0-0. 8 Not Available [facility] ([facility]) [address] [facility], [place], [address], 06/27/2024 10:19:00 06/27/19 25 06/27/2024 CBC AUTO W DIFF nucleated red blood cells % 0.0 % Not Available [facility] ([facility]) [address] [facility], [place], [address], 06/27/2024 10:19:00 06/27/19 25 06/27/2024 CBC AUTO W DIFF neutrophil# 7.1 K/uL 2.2-4. 8 high Not Available [facility] ([facility]) [address] [facility], [place], [address], 06/27/2024 10:19:00 06/27/19 25 06/27/2024 CBC AUTO W DIFF lymphocyte# 1.3 cell/ mcL 1.3-2. 9 Not Available [facility] ([facility]) [address] [facility], [place], [address], 06/27/2024 10:19:00 06/27/19 25 06/27/2024 CBC AUTO W DIFF monocyte# 0.7 cell/ mcL 0.3-0. 8 Not Available [facility] ([facility]) [address] [place], [address], 06/27/2024 10:19:00 06/27/19 25 06/27/2024 CBC AUTO W DIFF eosinophil# 0.7 cell/ mcL 0-0.2 high Not Available [facility] ([facility]) [address] [place], [address], 06/27/2024 10:19:00 06/27/19 25 06/27/2024 CBC AUTO W DIFF basophil# 0.1 cell/ mcL 0.0-1. 0 Not Available [facility] ([facility]) [address] , [place], [address], 06/27/2024 10:19:00 06/27/19 25 06/27/2024 CBC AUTO W DIFF immature gramulocytes # 0.04 K/uL Not Available [facility] ([facility]) [address], [place], [address], 06/27/2024 10:19:00 06/27/19 25 06/27/2024 CBC AUTO W DIFF nucleated red blood cells # 0.00 K/uL Not Available [facility] ([facility]) [address], [place], [address], 06/27/2024 10:19:00 06/27/19 25 06/27/2024 CBC AUTO W DIFF manual differential NO Not Available [facility] ([facility]) [address], [place], [address], 06/27/2024 10:19:00 06/27/19 25 06/27/2024 PT (PROT HROMB IN TIME) W INR prothrombin time 34.6 secon ds 9.3-11 .4 high Not Available [facility] ([facility]) [address], [place], [address], 06/27/2024 10:32:54 06/27/19 25 06/27/2024 PT (PROT [...] Mecha nical Heart Valve s Not Available [facility] ([facility]) [address] [place], [address], 06/27/2024 10:32:54 06/27/19 25 06/27/2024 COMP METAB OLIC PANEL sodium 140 mmol/ L 136-14 5 Not Available [facility] ([facility]) [address] [facility], [place], [address], 06/27/2024 10:33:59 06/27/19 25 06/27/2024 COMP METAB OLIC PANEL potassium 3.3 mmol/ L 3.6-5. 0 low Not Available [facility] ([facility]) [address] [facility], [place], [address], 06/27/2024 10:33:59 06/27/19 25 06/27/2024 COMP METAB OLIC PANEL chloride 100 mmol/ L 98-107 Not Available [facility] ([facility]) [address] [place], [address], 06/27/2024 10:33:59 06/27/19 25 06/27/2024 COMP METAB OLIC PANEL carbon dioxide 33.1 mmol/ L 21.0-3 2.0 high Not Available [facility] ([facility]) [address] [place], [address], 06/27/2024 10:33:59 06/27/19 25 06/27/2024 COMP METAB OLIC PANEL anion gap 10.2 Not Available [facility] ([facility]) [address] [place], [address], 06/27/2024 10:33:59 06/27/19 25 06/27/2024 COMP METAB OLIC PANEL glucose 151 mg/dL 70-120 high Not Available [facility] ([facility]) [address] [place], [address], 06/27/2024 10:33:59 06/27/19 25 06/27/2024 COMP METAB OLIC PANEL BUN 15 mg/dL 7-18 Not Available [facility] ([facility]) [address], [place], [address], 06/27/2024 10:33:59 06/27/19 25 06/27/2024 COMP METAB OLIC PANEL creatinine 1.0 mg/dL 0.6-1. 3 Not Available [facility] ([facility]) [address], [place], [address], 06/27/2024 10:33:59 06/27/19 25 06/27/2024 COMP METAB [...] albrecht ing kiney funct ion. Not Available [facility] ([facility]) [address] , [place], [address], 06/27/2024 10:33:59 06/27/19 25 06/27/2024 COMP METAB OLIC PANEL total protein 6.9 g/dL 6.4-8. 2 Not Available [facility] ([facility]) [address] , [place], [address], 06/27/2024 10:33:59 06/27/19 25 06/27/2024 COMP METAB OLIC PANEL albumin 3.0 g/dL 3.4-5. 0 low Not Available [facility] ([facility]) [address] , [place], [address], 06/27/2024 10:33:59 06/27/19 25 06/27/2024 COMP METAB OLIC PANEL globulin 3.9 Not Available [facility] ([facility]) [address] , [place], [address], 06/27/2024 10:33:59 06/27/19 25 06/27/2024 COMP METAB OLIC PANEL alb/glob ratio 0.8 0.7-2 Not Available [facility] ([facility]) [address] , [place], [address], 06/27/2024 10:33:59 06/27/19 25 06/27/2024 COMP METAB OLIC PANEL calcium 9.2 mg/dL 8.5-10 .5 Not Available [facility] ([facility]) [address], [place], [address], 06/27/2024 10:33:59 06/27/19 25 06/27/2024 COMP METAB OLIC PANEL bilirubin total 0.70 mg/dL 0.10-1 .00 Not Available [facility] ([facility]) [address], [place], [address], 06/27/2024 10:33:59 06/27/19 25 06/27/2024 COMP METAB OLIC PANEL AST (SGOT) 41 U/L 0-37 high Not Available [facility] ([facility]) [address], [place], [address], 06/27/2024 10:33:59 06/27/19 25 06/27/2024 COMP METAB OLIC PANEL ALT (SGPT) 15 U/L 0-65 Not Available [facility] ([facility]) [address] [place], [address], 06/27/2024 10:33:59 06/27/19 25 06/27/2024 COMP METAB OLIC PANEL alk phosphatase 217 U/L 46-116 high Not Available [facility] ([facility]) [address] [place] [address], 06/27/2024 10:33:59 06/27/19 25 06/27/2024 MAGNE SIUM magnesium 2.2 mg/dL 1.8-2. 4 Not Available [facility] ([facility]) [address] [facility], [place], [address], 06/27/2024 10:34:02 06/27/19 25 06/27/2024 IRON STUDY (IRON /TIBC /%SAT ) iron 24 mcg/m L 40-180 low Not Available [facility] ([facility]) [address] [facility], [place], [address], 06/27/2024 11:58:15 06/27/19 25 06/27/2024 IRON STUDY (IRON /TIBC /%SAT ) TIBC 230 mcg/d L 250-45 0 low Not Available [facility] ([facility]) [address] [facility], [place], [address], 06/27/2024 11:58:15 06/27/19 25 06/27/2024 IRON STUDY (IRON /TIBC /%SAT ) %sat 10 15-55 low Not Available [facility] ([facility]) [address] [facility], [place], [address], 06/27/2024 11:58:15 06/27/19 25 06/27/2024 JUAN A TIN ferritin, serum 458 NG/mL 3-244 high Not Available [facility] ([facility]) [address] [place], [address], 06/27/2024 12:21:28 06/27/19 25 06/28/2024 CEA cea [...] t be inter prete d as absol quinault evide nce of the prese nce or absen ce of [facility] se. Perfo rmed at: - [facility] [address] [id number] Lab Direc tor: Tate staton PhD, Phone : [phone] Not Available [facility] ([facility]) [address] [facility], [place], [address], 06/28/2024 13:09:29 07/11/19 25 07/11/2024 CBC AUTO W DIFF WBC 6.9 K/uL 4.0-10 .5 Not Available [facility] ([facility]) [address] [facility], [place], [address], 07/11/2024 10:30:50 07/11/19 25 07/11/2024 CBC AUTO W DIFF RBC 3.8 M/mm3 4.2-6. 4 low Not Available [facility] ([facility]) [address] [facility], [place], [address], 07/11/2024 10:30:50 07/11/19 25 07/11/2024 CBC AUTO W DIFF HGB 11.0 gm/dL 12.5-1 6.0 low Not Available [facility] ([facility]) [address] [facility], [place], [address], 07/11/2024 10:30:50 07/11/19 25 07/11/2024 CBC AUTO W DIFF HCT 34.5 % 37.0-4 7.0 low Not Available [facility] ([facility]) [address] [place], [address], 07/11/2024 10:30:50 07/11/19 25 07/11/2024 CBC AUTO W DIFF MCV 92.0 fL 78-100 Not Available [facility] ([facility]) [address] [facility], [place], [address], 07/11/2024 10:30:50 07/11/19 25 07/11/2024 CBC AUTO W DIFF MCH 29.3 pg 27-31 Not Available [facility] ([facility]) [address], [place], [address], 07/11/2024 10:30:50 07/11/19 25 07/11/2024 CBC AUTO W DIFF MCHC 31.9 g/dL 32-36 low Not Available [facility] ([facility]) [address], [place], [address], 07/11/2024 10:30:50 07/11/19 25 07/11/2024 CBC AUTO W DIFF RDW 15.9 % 11.5-1 4.0 high Not Available [facility] ([facility]) [address] [facility], [place], [address], 07/11/2024 10:30:50 07/11/19 25 07/11/2024 CBC AUTO W DIFF platelet count 267 K/uL 150-45 0 Not Available [facility] ([facility]) [address], [place], [address], 07/11/2024 10:30:50 07/11/19 25 07/11/2024 CBC AUTO W DIFF MPV 9.1 fL 6-9.5 Not Available [facility] ([facility]) [address] [place], [address], 07/11/2024 10:30:50 07/11/19 25 07/11/2024 CBC AUTO W DIFF neutrophil% 66.2 % 43-65 high Not Available [facility] ([facility]) [address] [place], [address], 07/11/2024 10:30:50 07/11/19 25 07/11/2024 CBC AUTO W DIFF lymphocyte% 18.6 % 20.5-4 5.5 low Not Available [facility] ([facility]) [address], [place], [address], 07/11/2024 10:30:50 07/11/19 25 07/11/2024 CBC AUTO W DIFF monocyte% 11.5 % 5.5-11 .7 Not Available [facility] ([facility]) [address] [facility], [place], [address], 07/11/2024 10:30:50 07/11/19 25 07/11/2024 CBC AUTO W DIFF eosinophil% 2.7 % 0.9-2. 9 Not Available [facility] ([facility]) [address] [facility], [place], [address], 07/11/2024 10:30:50 07/11/19 25 07/11/2024 CBC AUTO W DIFF basophil% 0.6 % 0.2-1. 0 Not Available [facility] ([facility]) [address] [facility], [place], [address], 07/11/2024 10:30:50 07/11/19 25 07/11/2024 CBC AUTO W DIFF immature granulocytes % 0.4 % 0.0-0. 8 Not Available [facility] ([facility]) [address] [facility], [place], [address], 07/11/2024 10:30:50 07/11/19 25 07/11/2024 CBC AUTO W DIFF nucleated red blood cells % 0.0 % Not Available [facility] ([facility]) [address] [facility], [place], [address], 07/11/2024 10:30:50 07/11/19 25 07/11/2024 CBC AUTO W DIFF neutrophil# 4.6 K/uL 2.2-4. 8 Not Available [facility] ([facility]) [address] [place], [address], 07/11/2024 10:30:50 07/11/19 25 07/11/2024 CBC AUTO W DIFF lymphocyte# 1.3 cell/ mcL 1.3-2. 9 Not Available [facility] ([facility]) [address] [facility], [place], [address], 07/11/2024 10:30:50 07/11/19 25 07/11/2024 CBC AUTO W DIFF monocyte# 0.8 cell/ mcL 0.3-0. 8 Not Available [facility] ([facility]) [address] [facility], [place], [address], 07/11/2024 10:30:50 07/11/19 25 07/11/2024 CBC AUTO W DIFF eosinophil# 0.2 cell/ mcL 0-0.2 Not Available [facility] ([facility]) [address] [facility], [place], [address], 07/11/2024 10:30:50 07/11/19 25 07/11/2024 CBC AUTO W DIFF basophil# 0.0 cell/ mcL 0.0-1. 0 Not Available [facility] ([facility]) [address] [facility], [place], [address], 07/11/2024 10:30:50 07/11/19 25 07/11/2024 CBC AUTO W DIFF immature gramulocytes # 0.03 K/uL Not Available [facility] ([facility]) [address] [place], [address], 07/11/2024 10:30:50 07/11/19 25 07/11/2024 CBC AUTO W DIFF nucleated red blood cells # 0.00 K/uL Not Available [facility] ([facility]) [address] [place], [address], 07/11/2024 10:30:50 07/11/19 25 07/11/2024 CBC AUTO W DIFF manual differential NO Not Available [facility] ([facility]) [address] , [place], [address], 07/11/2024 10:30:50 07/11/19 25 07/11/2024 COMP METAB OLIC PANEL sodium 137 mmol/ L 136-14 5 Not Available [facility] ([facility]) [address], [place], [address], 07/11/2024 10:45:53 07/11/19 25 07/11/2024 COMP METAB OLIC PANEL potassium 3.4 mmol/ L 3.6-5. 0 low Not Available [facility] ([facility]) [address], [place], [address], 07/11/2024 10:45:53 07/11/19 25 07/11/2024 COMP METAB OLIC PANEL chloride 100 mmol/ L 98-107 Not Available [facility] ([facility]) [address], [place], [address], 07/11/2024 10:45:53 07/11/19 25 07/11/2024 COMP METAB OLIC PANEL carbon dioxide 28.2 mmol/ L 21.0-3 2.0 Not Available [facility] ([facility]) [address], [place], [address], 07/11/2024 10:45:53 07/11/19 25 07/11/2024 COMP METAB OLIC PANEL anion gap 12.2 Not Available [facility] ([facility]) [address], [place], [address], 07/11/2024 10:45:53 07/11/19 25 07/11/2024 COMP METAB OLIC PANEL glucose 208 mg/dL 70-120 high Not Available [facility] ([facility]) [address] [place], [address], 07/11/2024 10:45:53 07/11/19 25 07/11/2024 COMP METAB OLIC PANEL BUN 16 mg/dL 7-18 Not Available [facility] ([facility]) [address], [place], [address], 07/11/2024 10:45:53 07/11/19 25 07/11/2024 COMP METAB OLIC PANEL creatinine 1.2 mg/dL 0.6-1. 3 Not Available [facility] ([facility]) [address], [place], [address], 07/11/2024 10:45:53 07/11/19 25 07/11/2024 COMP METAB [...] albrecht ing kiney funct ion. Not Available [facility] ([facility]) [address] , [place], [address], 07/11/2024 10:45:53 07/11/19 25 07/11/2024 COMP METAB OLIC PANEL total protein 6.6 g/dL 6.4-8. 2 Not Available [facility] ([facility]) [address] , [place], [address], 07/11/2024 10:45:53 07/11/19 25 07/11/2024 COMP METAB OLIC PANEL albumin 2.3 g/dL 3.4-5. 0 low Not Available [facility] ([facility]) [address], [place], [address], 07/11/2024 10:45:53 07/11/19 25 07/11/2024 COMP METAB OLIC PANEL globulin 4.3 Not Available [facility] ([facility]) [address], [place], [address], 07/11/2024 10:45:53 07/11/19 25 07/11/2024 COMP METAB OLIC PANEL alb/glob ratio 0.5 0.7-2 low Not Available [facility] ([facility]) [address], [place], [address], 07/11/2024 10:45:53 07/11/19 25 07/11/2024 COMP METAB OLIC PANEL calcium 8.9 mg/dL 8.5-10 .5 Not Available [facility] ([facility]) [address], [place], [address], 07/11/2024 10:45:53 07/11/19 25 07/11/2024 COMP METAB OLIC PANEL bilirubin total 0.50 mg/dL 0.10-1 .00 Not Available [facility] ([facility]) [address] [place], [address], 07/11/2024 10:45:53 07/11/19 25 07/11/2024 COMP METAB OLIC PANEL AST (SGOT) 50 U/L 0-37 high Not Available [facility] ([facility]) [address] [place], [address], 07/11/2024 10:45:53 07/11/19 25 07/11/2024 COMP METAB OLIC PANEL ALT (SGPT) 20 U/L 0-65 Not Available [facility] ([facility]) [address], [place], [address], 07/11/2024 10:45:53 07/11/19 25 07/11/2024 COMP METAB OLIC PANEL alk phosphatase 248 U/L 46-116 high Not Available [facility] ([facility]) [address], [place], [address], 07/11/2024 10:45:53 07/11/19 25 07/11/2024 MAGNE SIUM magnesium 2.3 mg/dL 1.8-2. 4 Not Available [facility] ([facility]) [address], [place], [address], 07/11/2024 10:45:56 07/11/19 25 07/11/2024 PT (PROT HROMB IN TIME) W INR prothrombin time 14.3 secon ds 9.3-11 .4 high Not Available [facility] ([facility]) [address], [place], [address], 07/11/2024 10:59:01 07/11/19 25 07/11/2024 PT (PROT [...] Mecha nical Heart Valve s Not Available [facility] ([facility]) [address] [facility], [place], [address], 07/11/2024 10:59:01 07/11/19 25 07/12/2024 CEA cea 132.0 NG/mL 0.0-4. 7 high Nonsm okers <3.9 Smoke rs <5.6 . Lois Diagn ostic s Elect lois milum inesc ence Immun oassa y (ECLI A) . Value s obtai lexi with diffe rent assay metho ds or kits canno t be used inter albrecht bing . Resul ts canno t be inter prete d as absol quinault evide nce of the prese nce or absen ce of [facility] se. Perfo rmed at: CB - [facility] [address] [facility], [place] [address] [facility] Lab Direc tor: Tate staton PhD, Phone : [phone] Not Available [facility] ([facility]) [address] , [place], [address], 07/12/2024 13:09:06 07/25/19 25 07/25/2024 MAGNE SIUM magnesium 1.8 mg/dL 1.8-2. 4 Not Available [facility] ([facility]) [address] , [place], [address], 07/25/2024 10:51:25 07/25/19 25 07/25/2024 CBC AUTO W DIFF WBC 9.0 K/uL 4.0-10 .5 Not Available [facility] ([facility]) [address] , [place], [address], 07/25/2024 10:52:22 07/25/19 25 07/25/2024 CBC AUTO W DIFF RBC 4.3 M/mm3 4.2-6. 4 Not Available [facility] ([facility]) [address] , [place], [address], 07/25/2024 10:52:22 07/25/19 25 07/25/2024 CBC AUTO W DIFF HGB 12.6 gm/dL 12.5-1 6.0 Not Available [facility] ([facility]) [address] , [place], [address], 07/25/2024 10:52:22 07/25/19 25 07/25/2024 CBC AUTO W DIFF HCT 39.6 % 37.0-4 7.0 Not Available [facility] ([facility]) [address] , [place], [address], 07/25/2024 10:52:22 07/25/19 25 07/25/2024 CBC AUTO W DIFF MCV 92.7 fL 78-100 Not Available [facility] ([facility]) [address] , [place], [address], 07/25/2024 10:52:22 07/25/19 25 07/25/2024 CBC AUTO W DIFF MCH 29.5 pg 27-31 Not Available [facility] ([facility]) [address] , [place], [address], 07/25/2024 10:52:22 07/25/19 25 07/25/2024 CBC AUTO W DIFF MCHC 31.8 g/dL 32-36 low Not Available [facility] ([facility]) [address] , [place], [address], 07/25/2024 10:52:22 07/25/19 25 07/25/2024 CBC AUTO W DIFF RDW 16.8 % 11.5-1 4.0 high Not Available [facility] ([facility]) [address], [place], [address], 07/25/2024 10:52:22 07/25/19 25 07/25/2024 CBC AUTO W DIFF platelet count 234 K/uL 150-45 0 Not Available [facility] ([facility]) [address] , [place], [address], 07/25/2024 10:52:22 07/25/19 25 07/25/2024 CBC AUTO W DIFF MPV 9.2 fL 6-9.5 Not Available [facility] ([facility]) [address] , [place], [address], 07/25/2024 10:52:22 07/25/19 25 07/25/2024 CBC AUTO W DIFF neutrophil% 70.3 % 43-65 high Not Available [facility] ([facility]) [address] [place], [address], 07/25/2024 10:52:22 07/25/19 25 07/25/2024 CBC AUTO W DIFF lymphocyte% 16.5 % 20.5-4 5.5 low Not Available [facility] ([facility]) [address], [place], [address], 07/25/2024 10:52:22 07/25/19 25 07/25/2024 CBC AUTO W DIFF monocyte% 7.0 % 5.5-11 .7 Not Available [facility] ([facility]) [address], [place], [address], 07/25/2024 10:52:22 07/25/19 25 07/25/2024 CBC AUTO W DIFF eosinophil% 5.3 % 0.9-2. 9 high Not Available [facility] ([facility]) [address] [facility], [place], [address], 07/25/2024 10:52:22 07/25/19 25 07/25/2024 CBC AUTO W DIFF basophil% 0.6 % 0.2-1. 0 Not Available [facility] ([facility]) [address] [facility] [facility], [place], [address], 07/25/2024 10:52:22 07/25/19 25 07/25/2024 CBC AUTO W DIFF immature granulocytes % 0.3 % 0.0-0. 8 Not Available [facility] ([facility]) [address] [facility], [place], [address], 07/25/2024 10:52:22 07/25/19 25 07/25/2024 CBC AUTO W DIFF nucleated red blood cells % 0.0 % Not Available [facility] ([facility]) [address] [facility] [facility], [place], [address], 07/25/2024 10:52:22 07/25/19 25 07/25/2024 CBC AUTO W DIFF neutrophil# 6.3 K/uL 2.2-4. 8 high Not Available [facility] ([facility]) [address] [place], [address], 07/25/2024 10:52:22 07/25/19 25 07/25/2024 CBC AUTO W DIFF lymphocyte# 1.5 cell/ mcL 1.3-2. 9 Not Available [facility] ([facility]) [address], [place], [address], 07/25/2024 10:52:22 07/25/19 25 07/25/2024 CBC AUTO W DIFF monocyte# 0.6 cell/ mcL 0.3-0. 8 Not Available [facility] ([facility]) [address] [facility], [place], [address], 07/25/2024 10:52:22 07/25/19 25 07/25/2024 CBC AUTO W DIFF eosinophil# 0.5 cell/ mcL 0-0.2 high Not Available [facility] ([facility]) [address], [place], [address], 07/25/2024 10:52:22 07/25/19 25 07/25/2024 CBC AUTO W DIFF basophil# 0.1 cell/ mcL 0.0-1. 0 Not Available [facility] ([facility]) [address] [facility], [place], [address], 07/25/2024 10:52:22 07/25/19 25 07/25/2024 CBC AUTO W DIFF immature gramulocytes # 0.03 K/uL Not Available [facility] ([facility]) [address] [facility], [place], [address], 07/25/2024 10:52:22 07/25/19 25 07/25/2024 CBC AUTO W DIFF nucleated red blood cells # 0.00 K/uL Not Available [facility] ([facility]) [address] [facility], [place], [address], 07/25/2024 10:52:22 07/25/19 25 07/25/2024 CBC AUTO W DIFF manual differential NO Not Available [facility] ([facility]) [address] , [place], [address], 07/25/2024 10:52:22 07/25/19 25 07/25/2024 COMP METAB OLIC PANEL sodium 137 mmol/ L 136-14 5 Not Available [facility] ([facility]) [address] , [place], [address], 07/25/2024 10:58:53 07/25/19 25 07/25/2024 COMP METAB OLIC PANEL potassium 3.7 mmol/ L 3.6-5. 0 Not Available [facility] ([facility]) [address] , [place], [address], 07/25/2024 10:58:53 07/25/19 25 07/25/2024 COMP METAB OLIC PANEL chloride 100 mmol/ L 98-107 Not Available [facility] ([facility]) [address] , [place], [address], 07/25/2024 10:58:53 07/25/19 25 07/25/2024 COMP METAB OLIC PANEL carbon dioxide 25.4 mmol/ L 21.0-3 2.0 Not Available [facility] ([facility]) [address] , [place], [address], 07/25/2024 10:58:53 07/25/19 25 07/25/2024 COMP METAB OLIC PANEL anion gap 15.3 Not Available [facility] ([facility]) [address] , [place], [address], 07/25/2024 10:58:53 07/25/19 25 07/25/2024 COMP METAB OLIC PANEL glucose 169 mg/dL 70-120 high Not Available [facility] ([facility]) [address] , [place], [address], 07/25/2024 10:58:53 07/25/19 25 07/25/2024 COMP METAB OLIC PANEL BUN 17 mg/dL 7-18 Not Available [facility] ([facility]) [address], [place], [address], 07/25/2024 10:58:53 07/25/19 25 07/25/2024 COMP METAB OLIC PANEL creatinine 0.9 mg/dL 0.6-1. 3 Not Available [facility] ([facility]) [address], [place], [address], 07/25/2024 10:58:53 07/25/19 25 07/25/2024 COMP METAB [...] albrecht ing kiney funct ion. Not Available [facility] ([facility]) [address] , [place], [address], 07/25/2024 10:58:53 07/25/19 25 07/25/2024 COMP METAB OLIC PANEL total protein 7.1 g/dL 6.4-8. 2 Not Available [facility] ([facility]) [address] , [place], [address], 07/25/2024 10:58:53 07/25/19 25 07/25/2024 COMP METAB OLIC PANEL albumin 2.8 g/dL 3.4-5. 0 low Not Available [facility] ([facility]) [address] , [place], [address], 07/25/2024 10:58:53 07/25/19 25 07/25/2024 COMP METAB OLIC PANEL globulin 4.3 Not Available [facility] ([facility]) [address], [place], [address], 07/25/2024 10:58:53 07/25/19 25 07/25/2024 COMP METAB OLIC PANEL alb/glob ratio 0.7 0.7-2 Not Available [facility] ([facility]) [address], [place], [address], 07/25/2024 10:58:53 07/25/19 25 07/25/2024 COMP METAB OLIC PANEL calcium 9.0 mg/dL 8.5-10 .5 Not Available [facility] ([facility]) [address], [place], [address], 07/25/2024 10:58:53 07/25/19 25 07/25/2024 COMP METAB OLIC PANEL bilirubin total 0.60 mg/dL 0.10-1 .00 Not Available [facility] ([facility]) [address] [facility], [place], [address], 07/25/2024 10:58:53 07/25/19 25 07/25/2024 COMP METAB OLIC PANEL AST (SGOT) 33 U/L 0-37 Not Available [facility] ([facility]) [address], [place], [address], 07/25/2024 10:58:53 07/25/19 25 07/25/2024 COMP METAB OLIC PANEL ALT (SGPT) 20 U/L 0-65 Not Available [facility] ([facility]) [address], [place], [address], 07/25/2024 10:58:53 07/25/19 25 07/25/2024 COMP METAB OLIC PANEL alk phosphatase 224 U/L 46-116 high Not Available [facility] ([facility]) [address], [place], [address], 07/25/2024 10:58:53 07/25/19 25 07/25/2024 PT (PROT HROMB IN TIME) W INR prothrombin time 27.2 secon ds 9.3-11 .4 high Not Available [facility] ([facility]) [address] , [place], [address], 07/25/2024 11:01:05 07/25/19 25 07/25/2024 PT (PROT [...] Mecha nical Heart Valve s Not Available [facility] ([facility]) [address] , [place], [address], 07/25/2024 11:01:05 07/25/19 25 07/26/2024 CEA cea 111.0 NG/mL 0.0-4. 7 high Nonsm okers <3.9 Smoke rs <5.6 . Lois Diagn ostic s Elect lois milum inesc ence Immun oassa y (ECLI A) . Value s obtai lexi with diffe rent assay metho ds or kits canno t be used inter albrecht bing . Resul ts canno t be inter prete d as absol quinault evide nce of the prese nce or absen ce of [facility]. Perfo rmed at: - [facility] [address] [facility], [place] [address] Lab Direc tor: Tate staton PhD, Phone : [phone] Not Available [facility] ([facility]) [address] , [place], [address], 07/26/2024 08:13:00 08/11/19 25 08/10/2024 CBC AUTO W DIFF WBC 10.3 K/uL 4.0-10 .5 Not Available [facility] ([facility]) [address], [place], [address], 08/10/2024 10:33:28 08/11/19 25 08/10/2024 CBC AUTO W DIFF RBC 4.0 M/mm3 4.2-6. 4 low Not Available [facility] ([facility]) [address], [place], [address], 08/10/2024 10:33:28 08/11/19 25 08/10/2024 CBC AUTO W DIFF HGB 11.9 gm/dL 12.5-1 6.0 low Not Available [facility] ([facility]) [address], [place], [address], 08/10/2024 10:33:28 08/11/19 25 08/10/2024 CBC AUTO W DIFF HCT 36.4 % 37.0-4 7.0 low Not Available [facility] ([facility]) [address], [place], [address], 08/10/2024 10:33:28 08/11/19 25 08/10/2024 CBC AUTO W DIFF MCV 91.7 fL 78-100 Not Available [facility] ([facility]) [address], [place], [address], 08/10/2024 10:33:28 08/11/19 25 08/10/2024 CBC AUTO W DIFF MCH 30.0 pg 27-31 Not Available [facility] ([facility]) [address], [place], [address], 08/10/2024 10:33:28 08/11/19 25 08/10/2024 CBC AUTO W DIFF MCHC 32.7 g/dL 32-36 Not Available [facility] ([facility]) [address], [place], [address], 08/10/2024 10:33:28 08/11/19 25 08/10/2024 CBC AUTO W DIFF RDW 16.3 % 11.5-1 4.0 high Not Available [facility] ([facility]) [address] , [place], [address], 08/10/2024 10:33:28 08/11/19 25 08/10/2024 CBC AUTO W DIFF platelet count 227 K/uL 150-45 0 Not Available [facility] ([facility]) [address] , [place], [address], 08/10/2024 10:33:28 08/11/19 25 08/10/2024 CBC AUTO W DIFF MPV 9.6 fL 6-9.5 high Not Available [facility] ([facility]) [address] , [place], [address], 08/10/2024 10:33:28 08/11/19 25 08/10/2024 CBC AUTO W DIFF neutrophil% 71.2 % 43-65 high Not Available [facility] ([facility]) [address] , [place], [address], 08/10/2024 10:33:28 08/11/19 25 08/10/2024 CBC AUTO W DIFF lymphocyte% 12.6 % 20.5-4 5.5 low Not Available [facility] ([facility]) [address] , [place], [address], 08/10/2024 10:33:28 08/11/19 25 08/10/2024 CBC AUTO W DIFF monocyte% 6.6 % 5.5-11 .7 Not Available [facility] ([facility]) [address] [place], [address], 08/10/2024 10:33:28 08/11/19 25 08/10/2024 CBC AUTO W DIFF eosinophil% 8.6 % 0.9-2. 9 high Not Available [facility] ([facility]) [address] [place], [address], 08/10/2024 10:33:28 08/11/19 25 08/10/2024 CBC AUTO W DIFF basophil% 0.7 % 0.2-1. 0 Not Available [facility] ([facility]) [address], [place], [address], 08/10/2024 10:33:28 08/11/19 25 08/10/2024 CBC AUTO W DIFF immature granulocytes % 0.3 % 0.0-0. 8 Not Available [facility] ([facility]) [address] [facility], [place], [address], 08/10/2024 10:33:28 08/11/19 25 08/10/2024 CBC AUTO W DIFF nucleated red blood cells % 0.0 % Not Available [facility] ([facility]) [address] [facility], [place], [address], 08/10/2024 10:33:28 08/11/19 25 08/10/2024 CBC AUTO W DIFF neutrophil# 7.3 K/uL 2.2-4. 8 high Not Available [facility] ([facility]) [address] [facility], [place], [address], 08/10/2024 10:33:28 08/11/19 25 08/10/2024 CBC AUTO W DIFF lymphocyte# 1.3 cell/ mcL 1.3-2. 9 Not Available [facility] ([facility]) [address] [facility], [place], [address], 08/10/2024 10:33:28 08/11/19 25 08/10/2024 CBC AUTO W DIFF monocyte# 0.7 cell/ mcL 0.3-0. 8 Not Available [facility] ([facility]) [address] [facility] [facility], [place], [address], 08/10/2024 10:33:28 08/11/19 25 08/10/2024 CBC AUTO W DIFF eosinophil# 0.9 cell/ mcL 0-0.2 high Not Available [facility] ([facility]) [address] , [place], [address], 08/10/2024 10:33:28 08/11/19 25 08/10/2024 CBC AUTO W DIFF basophil# 0.1 cell/ mcL 0.0-1. 0 Not Available [facility] ([facility]) [address] , [place], [address], 08/10/2024 10:33:28 08/11/19 25 08/10/2024 CBC AUTO W DIFF immature gramulocytes # 0.03 K/uL Not Available [facility] ([facility]) [address], [place], [address], 08/10/2024 10:33:28 08/11/19 25 08/10/2024 CBC AUTO W DIFF nucleated red blood cells # 0.00 K/uL Not Available [facility] ([facility]) [address], [place], [address], 08/10/2024 10:33:28 08/11/19 25 08/10/2024 CBC AUTO W DIFF manual differential NO Not Available [facility] ([facility]) [address] , [place], [address], 08/10/2024 10:33:28 08/11/19 25 08/10/2024 COMP METAB OLIC PANEL sodium 140 mmol/ L 136-14 5 Not Available [facility] ([facility]) [address] [place], [address], 08/10/2024 10:56:34 08/11/19 25 08/10/2024 COMP METAB OLIC PANEL potassium 4.1 mmol/ L 3.6-5. 0 Not Available [facility] ([facility]) [address], [place], [address], 08/10/2024 10:56:34 08/11/19 25 08/10/2024 COMP METAB OLIC PANEL chloride 104 mmol/ L 98-107 Not Available [facility] ([facility]) [address], [place], [address], 08/10/2024 10:56:34 08/11/19 25 08/10/2024 COMP METAB OLIC PANEL carbon dioxide 22.7 mmol/ L 21.0-3 2.0 Not Available [facility] ([facility]) [address] , [place], [address], 08/10/2024 10:56:34 08/11/19 25 08/10/2024 COMP METAB OLIC PANEL anion gap 17.4 Not Available [facility] ([facility]) [address] , [place], [address], 08/10/2024 10:56:34 08/11/19 25 08/10/2024 COMP METAB OLIC PANEL glucose 180 mg/dL 70-120 high Not Available [facility] ([facility]) [address] , [place], [address], 08/10/2024 10:56:34 08/11/19 25 08/10/2024 COMP METAB OLIC PANEL BUN 13 mg/dL 7-18 Not Available [facility] ([facility]) [address] , [place], [address], 08/10/2024 10:56:34 08/11/19 25 08/10/2024 COMP METAB OLIC PANEL creatinine 1.05 mg/dL 0.6-1. 3 Not Available [facility] ([facility]) [address] , [place], [address], 08/10/2024 10:56:34 08/11/19 25 08/10/2024 COMP METAB [...] albrecht ing kiney funct ion. Not Available [facility] ([facility]) [address] , [place], [address], 08/10/2024 10:56:34 08/11/19 25 08/10/2024 COMP METAB OLIC PANEL total protein 6.9 g/dL 6.4-8. 2 Not Available [facility] ([facility]) [address], [place], [address], 08/10/2024 10:56:34 08/11/19 25 08/10/2024 COMP METAB OLIC PANEL albumin 4.3 g/dL 3.4-5. 0 Not Available [facility] ([facility]) [address], [place], [address], 08/10/2024 10:56:34 08/11/19 25 08/10/2024 COMP METAB OLIC PANEL globulin 2.6 Not Available [facility] ([facility]) [address], [place], [address], 08/10/2024 10:56:34 08/11/19 25 08/10/2024 COMP METAB OLIC PANEL alb/glob ratio 1.7 0.7-2 Not Available [facility] ([facility]) [address], [place], [address], 08/10/2024 10:56:34 08/11/19 25 08/10/2024 COMP METAB OLIC PANEL calcium 8.9 mg/dL 8.5-10 .5 Not Available [facility] ([facility]) [address], [place], [address], 08/10/2024 10:56:34 08/11/19 25 08/10/2024 COMP METAB OLIC PANEL bilirubin total 0.6 mg/dL 0.10-1 .00 Not Available [facility] ([facility]) [address] , [place], [address], 08/10/2024 10:56:34 08/11/19 25 08/10/2024 COMP METAB OLIC PANEL AST (SGOT) 40 U/L 0-37 high Not Available [facility] ([facility]) [address], [place], [address], 08/10/2024 10:56:34 08/11/19 25 08/10/2024 COMP METAB OLIC PANEL ALT (SGPT) 23 U/L 0-65 Not Available [facility] ([facility]) [address], [place], [address], 08/10/2024 10:56:34 08/11/19 25 08/10/2024 COMP METAB OLIC PANEL alk phosphatase 234 U/L 46-116 high Not Available [facility] ([facility]) [address], [place], [address], 08/10/2024 10:56:34 08/11/19 25 08/10/2024 MAGNE SIUM magnesium 2.1 mg/dL 1.8-2. 4 Not Available [facility] ([facility]) [address], [place], [address], 08/10/2024 10:57:38 08/11/19 25 08/10/2024 PT (PROT HROMB IN TIME) W INR prothrombin time 36.2 secon ds 9.3-11 .4 high Not Available [facility] ([facility]) [address], [place], [address], 08/10/2024 10:58:45 08/11/19 25 08/10/2024 PT (PROT [...] Mecha nical Heart Valve s Not Available [facility] ([facility]) [address] , [place], [address], 08/10/2024 10:58:45 08/26/19 25 08/25/2024 COMP METAB OLIC PANEL sodium 137 mmol/ L 136-14 5 Not Available [facility] ([facility]) [address] , [place], [address], 08/25/2024 09:39:00 08/26/19 25 08/25/2024 COMP METAB OLIC PANEL potassium 4.1 mmol/ L 3.6-5. 0 Not Available [facility] ([facility]) [address] [place], [address], 08/25/2024 09:39:00 08/26/19 25 08/25/2024 COMP METAB OLIC PANEL chloride 101 mmol/ L 98-107 Not Available [facility] ([facility]) [address] [place], [address], 08/25/2024 09:39:00 08/26/19 25 08/25/2024 COMP METAB OLIC PANEL carbon dioxide 23.8 mmol/ L 21.0-3 2.0 Not Available [facility] ([facility]) [address] [place], [address], 08/25/2024 09:39:00 08/26/19 25 08/25/2024 COMP METAB OLIC PANEL anion gap 16.3 Not Available [facility] ([facility]) [address] [place], [address], 08/25/2024 09:39:00 08/26/1908/25/2024 COMP METAB OLIC PANEL glucose 169 mg/dL 70-120 high Not Available [facility] ([facility]) [address] , [place], [address], 08/25/2024 09:39:00 08/26/1908/25/2024 COMP METAB OLIC PANEL BUN 17 mg/dL 7-18 Not Available [facility] ([facility] [address] , [place], [address], 08/25/2024 09:39:00 08/26/1908/25/2024 COMP METAB OLIC PANEL creatinine 1.5 mg/dL 0.6-1. 3 high Not Available [facility] ([facility]) [address] , [place], [address], 08/25/2024 09:39:00 08/26/1908/25/2024 COMP METAB OLIC PANEL [...] albrecht ing kiney funct ion. Not Available [facility] ([facility]) [address] , [place], [address], 08/25/2024 09:39:00 08/26/1908/25/2024 COMP METAB OLIC PANEL osmolality (calculated) 291 mOsm/ kg 275-30 1 OSMOL ALITY IS A CALCU LATIO N UTILI ZING THE SERUM /PLAS MA SODIU M, GLUCO SE AND UREA NITRO GEN (BUN) LEVEL S. FOR THE MOST ACCUR ATE RESUL T A MEASU RED SERUM OSMOL ALITY IS HAYDER PALM. Not Available [facility] ([facility]) [address], [place], [address], 08/25/2024 09:39:00 08/26/19 25 08/25/2024 COMP METAB OLIC PANEL total protein 7.2 g/dL 6.4-8. 2 Not Available [facility] ([facility]) [address], [place], [address], 08/25/2024 09:39:00 08/26/19 25 08/25/2024 COMP METAB OLIC PANEL albumin 2.9 g/dL 3.4-5. 0 low Not Available [facility] ([facility]) [address], [place], [address], 08/25/2024 09:39:00 08/26/19 25 08/25/2024 COMP METAB OLIC PANEL globulin 4.3 Not Available [facility] ([facility]) [address], [place], [address], 08/25/2024 09:39:00 08/26/1908/25/2024 COMP METAB OLIC PANEL alb/glob ratio 0.7 0.7-2 Not Available [facility] ([facility]) [address] , [place], [address], 08/25/2024 09:39:00 08/26/19 25 08/25/2024 COMP METAB OLIC PANEL calcium 8.9 mg/dL 8.5-10 .5 Not Available [facility] ([facility]) [address], [place], [address], 08/25/2024 09:39:00 08/26/19 25 08/25/2024 COMP METAB OLIC PANEL bilirubin total 0.50 mg/dL 0.10-1 .00 Not Available [facility] ([facility]) [address], [place], [address], 08/25/2024 09:39:00 08/26/19 25 08/25/2024 COMP METAB OLIC PANEL AST (SGOT) 18 U/L 0-37 Not Available [facility] ([facility]) [address] , [place], [address], 08/25/2024 09:39:00 08/26/19 25 08/25/2024 COMP METAB OLIC PANEL ALT (SGPT) 16 U/L 0-65 Not Available [facility] ([facility]) [address] , [place], [address], 08/25/2024 09:39:00 08/26/19 25 08/25/2024 COMP METAB OLIC PANEL alk phosphatase 218 U/L 46-116 high Not Available [facility] ([facility]) [address], [place], [address], 08/25/2024 09:39:00 08/26/19 25 08/25/2024 MAGNE SIUM magnesium 1.8 mg/dL 1.8-2. 4 Not Available [facility] ([facility]) [address], [place], [address], 08/25/2024 09:39:02 08/26/19 25 08/25/2024 CBC AUTO W DIFF WBC 3.5 K/uL 4.0-10 .5 low Not Available [facility] ([facility]) [address] , [place], [address], 08/25/2024 09:46:31 08/26/19 25 08/25/2024 CBC AUTO W DIFF RBC 3.9 M/mm3 4.2-6. 4 low Not Available [facility] ([facility]) [address], [place], [address], 08/25/2024 09:46:31 08/26/19 25 08/25/2024 CBC AUTO W DIFF HGB 11.4 gm/dL 12.5-1 6.0 low Not Available [facility] ([facility]) [address], [place], [address], 08/25/2024 09:46:31 08/26/19 25 08/25/2024 CBC AUTO W DIFF HCT 34.6 % 37.0-4 7.0 low Not Available [facility] ([facility]) [address], [place], [address], 08/25/2024 09:46:31 08/26/19 25 08/25/2024 CBC AUTO W DIFF MCV 88.7 fL 78-100 Not Available [facility] ([facility]) [address], [place], [address], 08/25/2024 09:46:31 08/26/19 25 08/25/2024 CBC AUTO W DIFF MCH 29.2 pg 27-31 Not Available [facility] ([facility]) [address], [place], [address], 08/25/2024 09:46:31 08/26/19 25 08/25/2024 CBC AUTO W DIFF MCHC 32.9 g/dL 32-36 Not Available [facility] ([facility]) [address], [place], [address], 08/25/2024 09:46:31 08/26/19 25 08/25/2024 CBC AUTO W DIFF RDW 15.6 % 11.5-1 4.0 high Not Available [facility] ([facility]) [address], [place], [address], 08/25/2024 09:46:31 08/26/19 25 08/25/2024 CBC AUTO W DIFF platelet count 295 K/uL 150-45 0 Not Available [facility] ([facility]) [address], [place], [address], 08/25/2024 09:46:31 08/26/19 25 08/25/2024 CBC AUTO W DIFF MPV 9.0 fL 6-9.5 Not Available [facility] ([facility]) [address] [place], [address], 08/25/2024 09:46:31 08/26/19 25 08/25/2024 CBC AUTO W DIFF neutrophil% 39.6 % 43-65 low Not Available [facility] ([facility]) [address] [place], [address], 08/25/2024 09:46:31 08/26/19 25 08/25/2024 CBC AUTO W DIFF lymphocyte% 41.8 % 20.5-4 5.5 Not Available [facility] ([facility]) [address] [place], [address], 08/25/2024 09:46:31 08/26/19 25 08/25/2024 CBC AUTO W DIFF monocyte% 13.4 % 5.5-11 .7 high Not Available [facility] ([facility]) [address] [place], [address], 08/25/2024 09:46:31 08/26/19 25 08/25/2024 CBC AUTO W DIFF eosinophil% 3.7 % 0.9-2. 9 high Not Available [facility] ([facility]) [address] [place], [address], 08/25/2024 09:46:31 08/26/19 25 08/25/2024 CBC AUTO W DIFF basophil% 0.9 % 0.2-1. 0 Not Available [facility] ([facility]) [address] [place], [address], 08/25/2024 09:46:31 08/26/19 25 08/25/2024 CBC AUTO W DIFF immature granulocytes % 0.6 % 0.0-0. 8 Not Available [facility] ([facility]) [address] [place], [address], 08/25/2024 09:46:31 08/26/19 25 08/25/2024 CBC AUTO W DIFF nucleated red blood cells % 0.0 % Not Available [facility] ([facility]) [address] [facility], [place], [address], 08/25/2024 09:46:31 08/26/19 25 08/25/2024 CBC AUTO W DIFF neutrophil# 1.4 K/uL 2.2-4. 8 low Not Available [facility] ([facility]) [address] [facility], [place], [address], 08/25/2024 09:46:31 08/26/19 25 08/25/2024 CBC AUTO W DIFF lymphocyte# 1.5 cell/ mcL 1.3-2. 9 Not Available [facility] ([facility]) [address] [facility], [place], [address], 08/25/2024 09:46:31 08/26/19 25 08/25/2024 CBC AUTO W DIFF monocyte# 0.5 cell/ mcL 0.3-0. 8 Not Available [facility] ([facility]) [address] [facility], [place], [address], 08/25/2024 09:46:31 08/26/19 25 08/25/2024 CBC AUTO W DIFF eosinophil# 0.1 cell/ mcL 0-0.2 Not Available [facility] ([facility]) [address] [facility] [facility], [place], [address], 08/25/2024 09:46:31 08/26/19 25 08/25/2024 CBC AUTO W DIFF basophil# 0.0 cell/ mcL 0.0-1. 0 Not Available [facility] ([facility]) [address] [facility], [place], [address], 08/25/2024 09:46:31 08/26/19 25 08/25/2024 CBC AUTO W DIFF immature gramulocytes # 0.02 K/uL Not Available [facility] ([facility]) [address] , [place], [address], 08/25/2024 09:46:31 08/26/19 25 08/25/2024 CBC AUTO W DIFF nucleated red blood cells # 0.00 K/uL Not Available [facility] ([facility]) [address] , [place], [address], 08/25/2024 09:46:31 08/26/19 25 08/25/2024 CBC AUTO W DIFF manual differential NO Not Available [facility] ([facility]) [address] , [place], [address], 08/25/2024 09:46:31 08/26/19 25 08/25/2024 PT (PROT HROMB IN TIME) W INR prothrombin time 77.1 secon ds 9.3-11 .4 critical high Not Available [facility] ([facility]) [address] , [place], [address], 08/25/2024 10:02:40 08/26/19 25 08/25/2024 PT (PROT [...] Mecha nical Heart Valve s Not Available [facility] ([facility]) [address] , [place], [address], 08/25/2024 10:02:40 09/03/19 25 09/02/2024 COMP METAB OLIC PANEL sodium 131 mmol/ L 136-14 5 low Not Available [facility] ([facility]) [address], [place], [address], 09/02/2024 14:45:24 09/03/19 25 09/02/2024 COMP METAB OLIC PANEL potassium 4.0 mmol/ L 3.6-5. 0 Not Available [facility] ([facility]) [address] , [place], [address], 09/02/2024 14:45:24 09/03/19 25 09/02/2024 COMP METAB OLIC PANEL chloride 99 mmol/ L 98-107 Not Available [facility] ([facility]) [address] , [place], [address], 09/02/2024 14:45:24 09/03/19 25 09/02/2024 COMP METAB OLIC PANEL carbon dioxide 18.6 mmol/ L 21.0-3 2.0 low Not Available [facility] ([facility]) [address] , [place], [address], 09/02/2024 14:45:24 09/03/19 25 09/02/2024 COMP METAB OLIC PANEL anion gap 17.4 Not Available [facility] ([facility]) [address] , [place], [address], 09/02/2024 14:45:24 09/03/19 25 09/02/2024 COMP METAB OLIC PANEL glucose 145 mg/dL 70-120 high Not Available [facility] ([facility]) [address] , [place], [address], 09/02/2024 14:45:24 09/03/19 25 09/02/2024 COMP METAB OLIC PANEL BUN 36 mg/dL 7-18 high Not Available [facility] ([facility]) [address] [place], [address], 09/02/2024 14:45:24 09/03/19 25 09/02/2024 COMP METAB OLIC PANEL creatinine 1.5 mg/dL 0.6-1. 3 high Not Available [facility] ([facility]) [address] , [place], [address], 09/02/2024 14:45:24 09/03/19 25 09/02/2024 COMP METAB [...] albrecht ing kiney funct ion. Not Available [facility] ([facility]) [address] , [place], [address], 09/02/2024 14:45:24 09/03/19 25 09/02/2024 COMP METAB OLIC PANEL osmolality (calculated) 284 mOsm/ kg 275-30 1 OSMOL ALITY IS A CALCU LATIO N UTILI ZING THE SERUM /PLAS MA SODIU M, GLUCO SE AND UREA NITRO GEN (BUN) LEVEL S. FOR THE MOST ACCUR ATE RESUL T A MEASU RED SERUM OSMOL ALITY IS SUGGE STED. Not Available [facility] ([facility]) [address] , [place], [address], 09/02/2024 14:45:24 09/03/19 25 09/02/2024 COMP METAB OLIC PANEL total protein 5.9 g/dL 6.4-8. 2 low Not Available [facility] ([facility]) [address] , [place], [address], 09/02/2024 14:45:24 09/03/19 25 09/02/2024 COMP METAB OLIC PANEL albumin 2.1 g/dL 3.4-5. 0 low Not Available [facility] ([facility]) [address], [place], [address], 09/02/2024 14:45:24 09/03/19 25 09/02/2024 COMP METAB OLIC PANEL globulin 3.8 Not Available [facility] ([facility]) [address], [place], [address], 09/02/2024 14:45:24 09/03/19 25 09/02/2024 COMP METAB OLIC PANEL alb/glob ratio 0.6 0.7-2 low Not Available [facility] ([facility]) [address], [place], [address], 09/02/2024 14:45:24 09/03/19 25 09/02/2024 COMP METAB OLIC PANEL calcium 8.1 mg/dL 8.5-10 .5 low Not Available [facility] ([facility]) [address] , [place], [address], 09/02/2024 14:45:24 09/03/19 25 09/02/2024 COMP METAB OLIC PANEL bilirubin total 1.10 mg/dL 0.10-1 .00 high Not Available [facility] ([facility]) [address] , [place], [address], 09/02/2024 14:45:24 09/03/19 25 09/02/2024 COMP METAB OLIC PANEL AST (SGOT) 13 U/L 0-37 Not Available [facility] ([facility]) [address] , [place], [address], 09/02/2024 14:45:24 09/03/19 25 09/02/2024 COMP METAB OLIC PANEL ALT (SGPT) 13 U/L 0-65 Not Available [facility] ([facility]) [address] , [place], [address], 09/02/2024 14:45:24 09/03/19 25 09/02/2024 COMP METAB OLIC PANEL alk phosphatase 188 U/L 46-116 high Not Available [facility] ([facility]) [address], [place], [address], 09/02/2024 14:45:24 09/03/19 25 09/02/2024 CBC AUTO W DIFF WBC 1.2 K/uL 4.0-10 .5 critical low Not Available [facility] ([facility]) [address], [place], [address], 09/02/2024 16:09:44 09/03/19 25 09/02/2024 CBC AUTO W DIFF RBC 3.4 M/mm3 4.2-6. 4 low Not Available [facility] ([facility]) [address] , [place], [address], 09/02/2024 16:09:44 09/03/19 25 09/02/2024 CBC AUTO W DIFF HGB 9.6 gm/dL 12.5-1 6.0 low Not Available [facility] ([facility]) [address] , [place], [address], 09/02/2024 16:09:44 09/03/19 25 09/02/2024 CBC AUTO W DIFF HCT 28.7 % 37.0-4 7.0 low Not Available [facility] ([facility]) [address] , [place], [address], 09/02/2024 16:09:44 09/03/19 25 09/02/2024 CBC AUTO W DIFF MCV 85.4 fL 78-100 Not Available [facility] ([facility]) [address] , [place], [address], 09/02/2024 16:09:44 09/03/19 25 09/02/2024 CBC AUTO W DIFF MCH 28.6 pg 27-31 Not Available [facility] ([facility]) [address] , [place], [address], 09/02/2024 16:09:44 09/03/19 25 09/02/2024 CBC AUTO W DIFF MCHC 33.4 g/dL 32-36 Not Available [facility] ([facility]) [address], [place], [address], 09/02/2024 16:09:44 09/03/19 25 09/02/2024 CBC AUTO W DIFF RDW 15.9 % 11.5-1 4.0 high Not Available [facility] ([facility]) [address] , [place], [address], 09/02/2024 16:09:44 09/03/19 25 09/02/2024 CBC AUTO W DIFF platelet count 213 K/uL 150-45 0 Not Available [facility] ([facility]) [address] , [place], [address], 09/02/2024 16:09:44 09/03/19 25 09/02/2024 CBC AUTO W DIFF MPV 9.6 fL 6-9.5 high Not Available [facility] ([facility]) [address] [place], [address], 09/02/2024 16:09:44 09/03/19 25 09/02/2024 CBC AUTO W DIFF neutrophil% 57.7 % 43-65 Not Available [facility] ([facility]) [address] [place], [address], 09/02/2024 16:09:44 09/03/19 25 09/02/2024 CBC AUTO W DIFF lymphocyte% 25.4 % 20.5-4 5.5 Not Available [facility] ([facility]) [address] [place], [address], 09/02/2024 16:09:44 09/03/19 25 09/02/2024 CBC AUTO W DIFF monocyte% 15.3 % 5.5-11 .7 high Not Available [facility] ([facility]) [address] , [place], [address], 09/02/2024 16:09:44 09/03/19 25 09/02/2024 CBC AUTO W DIFF eosinophil% 0.0 % 0.9-2. 9 low Not Available [facility] ([facility]) [address], [place], [address], 09/02/2024 16:09:44 09/03/19 25 09/02/2024 CBC AUTO W DIFF basophil% 0.8 % 0.2-1. 0 Not Available [facility] ([facility]) [address], [place], [address], 09/02/2024 16:09:44 09/03/19 25 09/02/2024 CBC AUTO W DIFF immature granulocytes % 0.8 % 0.0-0. 8 Not Available [facility] ([facility]) [address], [place], [address], 09/02/2024 16:09:44 09/03/19 25 09/02/2024 CBC AUTO W DIFF nucleated red blood cells % 0.0 % Not Available [facility] ([facility]) [address], [place], [address], 09/02/2024 16:09:44 09/03/19 25 09/02/2024 CBC AUTO W DIFF neutrophil# 0.7 K/uL 2.2-4. 8 low Not Available [facility] ([facility]) [address], [place], [address], 09/02/2024 16:09:44 09/03/19 25 09/02/2024 CBC AUTO W DIFF lymphocyte# 0.3 cell/ mcL 1.3-2. 9 low Not Available [facility] ([facility]) [address] [place], [address], 09/02/2024 16:09:44 09/03/19 25 09/02/2024 CBC AUTO W DIFF monocyte# 0.2 cell/ mcL 0.3-0. 8 low Not Available [facility] ([facility]) [address], [place], [address], 09/02/2024 16:09:44 09/03/19 25 09/02/2024 CBC AUTO W DIFF eosinophil# 0.0 cell/ mcL 0-0.2 Not Available [facility] ([facility]) [address], [place], [address], 09/02/2024 16:09:44 09/03/19 25 09/02/2024 CBC AUTO W DIFF basophil# 0.0 cell/ mcL 0.0-1. 0 Not Available [facility] ([facility]) [address], [place], [address], 09/02/2024 16:09:44 09/03/19 25 09/02/2024 CBC AUTO W DIFF immature gramulocytes # 0.01 K/uL Not Available [facility] ([facility]) [address] [facility], [place], [address], 09/02/2024 16:09:44 09/03/19 25 09/02/2024 CBC AUTO W DIFF nucleated red blood cells # 0.00 K/uL Not Available [facility] ([facility]) [address] [facility], [place], [address], 09/02/2024 16:09:44 09/03/19 25 09/02/2024 CBC AUTO W DIFF manual differential YES Not Available [facility] ([facility]) [address], [place], [address], 09/02/2024 16:09:44 09/03/19 25 09/02/2024 CBC AUTO W DIFF segmented neutrophil 54 % 42-76 Not Available [facility] ([facility]) [address] , [place], [address], 09/02/2024 16:09:44 09/03/19 25 09/02/2024 CBC AUTO W DIFF band neutrophil 8 % 0-8 Not Available [facility] ([facility]) [address] , [place], [address], 09/02/2024 16:09:44 09/03/19 25 09/02/2024 CBC AUTO W DIFF lymphocyte 16 % 15-41 Not Available [facility] ([facility]) [address], [place], [address], 09/02/2024 16:09:44 09/03/19 25 09/02/2024 CBC AUTO W DIFF monocyte 20 % 2-9 high Not Available [facility] ([facility]) [address] , [place], [address], 09/02/2024 16:09:44 09/03/19 25 09/02/2024 CBC AUTO W DIFF eosinophil 2 % 0-3 Not Available [facility] ([facility]) [address] , [place], [address], 09/02/2024 16:09:44 09/03/19 25 09/02/2024 CBC AUTO W DIFF platelet estimate ADEQUA TE adequa te Not Available [facility] ([facility]) [address] , [place], [address], 09/02/2024 16:09:44 09/03/19 25 09/02/2024 CBC AUTO W DIFF platelet morphology NORMAL normal Not Available [facility] ([facility]) [address] , [place], [address], 09/02/2024 16:09:44 09/03/19 25 09/02/2024 CBC AUTO W DIFF RBC morphology NORMAL normal Not Available [facility] ([facility]) [address], [place], [address], 09/02/2024 16:09:44 07/28/19 25 07/28/2024 CT ABD pel w/ (IV [facility] [address] [place] [address] Phone: Fax: Name: VICKY MCMAHAN Exam Date: : [birth year] Age 78 years Gender : F Access ion: [id number] 2023 Physic jesus: HANNA PARKER ty: [facility] Facili ty HSV: Outpat ient Exam: CT ABD PEL W/ (IV ^ ORAL) CT ABDOME N PELVIS WITH IV CONTRA ST 025 2:46 PM PILL [facility]ACH[facility]PER[facility] CLINIC AL INDICA TION: Female , 78 [...] gs compar e Februa ry 2023, index webbing 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 Legall y authen ticate d by VAMSHI HALL 0 07-28 15:46: 13 CC'ed Logic: Orderi ng Provid er: DIGNA LUGO Attend ing Provid er: DIGNA LUGO Referr ing Provid er: DIGNA LUGO Admitt ing Provid er: DIGNA taylor[address] [place] [address] - Physical Therapy [address] [place] [address], [place], [address], 07/29/2024 11:36:27 08/02/19 25 07/28/2024 CT, chest , w/ contr ast [facility] [address] [place] [address] Phone: Fax: Name: VICKY MCMAHAN Exam Date: : [birth year] Age 78 years Gender : F Access ion: [id number] 2023 Physic jesus: HANNA PARKER [facility] Fac[facility] ty HSV: Outpat ient Exam: [...] Villavicencio in 025 Thank you for referr VICKY Delgado to [facility]. Legall y authen ticate d by AVIS ALBA IN 07-28 15:46: 34 CC'ed Logic: Orderi ng Provid er: DIGNA LUGO Attend ing Provid er: DIGNA LUGO Referr ing Provid er: DIGNA LUGO Admitt ing Provid er: DIGNA LUGO [email or web address] [facility] [address] , [place], [address], 08/01/2024 10:49:34 Result Notes None recorded. Problems Name Problem SNOMED Code Status Onset Date Resolution Date Notes Provider Name and Address Organization Details Recorded Time Headache 40059003 Active 2024 Christine Farfan [facility], [place] - [facility] - [place] & [place] 5 10:27:12 Metastatic malignant neoplasm to liver 67464485 Active 2022 Ghassan Lieberman PA-C [address], [place], [address] , [place] - [facility] - [place] & [place] 3 14:27:25 Mass of colon 166631130 Active 2022 Ghassan Lieberman PA-C [address], [place], [address] , [place] - [facility] - [place] & [place] 3 14:27:30 Anemia 052004596 Active 2022 Ghassan Lieberman PA-C [address], [place], [address] , [place] - [facility] - [place] & [place] 3 14:27:36 Nausea and vomiting 56748964 Active 2022 Ghassan Lieberman PA-C [address], [place], [address] , [place] - [facility] & [place] 3 14:27:46 Unintentional weight loss 430467842 Active 2022 Ghassan Lieberman PA-C [address], [place], [address] , [place] - [facility] - [place] & [place] 3 16:13:07 Night sweats 98672427 Active 2022 Ghassan Lieberman PA-C [address], [place], [address] , [place] - [facility] - [place] & [place] 3 16:13:12 Problem Notes None recorded. Procedures Surgical History Date Name Laterality Status Provider Name and Address Organization Details Recorded Time 04/29/20 23 Venipuncture completed Hanna Snider PA-C [address] , [place], [address], [place] - [facility] & [place] 04/27/2023 15:05:29 04/15/20 23 Venipuncture completed [facility] & [place] 04/15/2023 15:24:55 hysterectomy completed Laurelesvin Hydecaio [place] - [facility] & [place] 03/11/2023 15:30:22 extraction of cataract completed Laurel Mary Ellencaio [place] - [facility] & [place] 03/11/2023 15:30:36 excision of colon completed Loree Tadeo [facility] & [place] 04/21/2023 11:32:07 Imaging Results Imaging Date Name Status LastModified by Organiz ation Details LastModified Time 07/28/2024 CT ABD pel w/ (IV completed [email or web address] [place] [address] - Physical Therapy [address], [place], [address], 07/29/2024 11:36:27 07/28/2024 CT, chest, w/ contrast completed [email or web address] [place] [address] Physical Therapy [address], [place], [address], 08/01/2024 10:49:34 Procedure Notes None recorded. Medical Equipment None Reported. Allergies Allergen ID Allergen Name Allergen Category Reaction Reaction Severity Criticality Documentation Date Start Date Code Code System Note Provider Name and Address Organization Details Recorded Time 53433 tetracycl ine medicatio n hives Not available high 02/19/2023 22603 RxNorm Brandy yusuf, [place] - [facility] - [place] & [place] 3 14:03:33 Medications Name Sig [...] Updated DateTime 5 162.56 cm 36 kg/m2 15347.4 g 98 [degF] 97 % 97 % 98 /min 132 mm[Hg] 72 mm[Hg] Akilah Fuentes ELIAS - BERNIE [facility] & [place] 5 10:42:43 Date Recorded Body height Body mass index (BMI) Body weight Body temperature Heart rate Oxygen saturation Oxygen saturation in Arterial blood by Pulse oximetry Systolic blood pressure Diastolic blood pressure Provider Name and Address Organization Details Last Updated DateTime 5 162.56 cm 35.2 kg/m2 53615.4 4 g 97.7 [degF] 60 /min 99 % 99 % 159 mm[Hg] 61 mm[Hg] Laurel Lookerycaio ELIAS - [facility] & [place] 5 12:08:08 Date Recorded Body height Body mass index (BMI) Body weight Body temperature Oxygen saturation Oxygen saturation in Arterial blood by Pulse oximetry Heart rate Respiratory rate Systolic blood pressure Diastolic blood pressure Provider Name and Address Organization Details Last Updated DateTime 5 162.56 cm 36 kg/m2 74651.4 g 97 [degF] 90 % 90 % 57 /min 18 /min 143 mm[Hg] 68 mm[Hg] Laurel GIBBS [facility] & [place] 5 10:00:38 Date Recorded Body height Body mass index (BMI) Body weight Body temperature Oxygen saturation Oxygen saturation in Arterial blood by Pulse oximetry Heart rate Respiratory rate Systolic blood pressure Diastolic blood pressure Provider Name and Address Organization Details Last Updated DateTime 5 162.56 cm 35.2 kg/m2 11069.4 4 g 97.5 [degF] 98 % 98 % 20 /min 83 /min 140 mm[Hg] 68 mm[Hg] Laurel GIBBS [facility] & [place] 5 09:42:28 Date Recorded Body height Body temperature Oxygen saturation Oxygen saturation in Arterial blood by Pulse oximetry Heart rate Respiratory rate Systolic blood pressure Diastolic blood pressure Provider Name and Address Organization Details Last Updated DateTime 5 162.56 cm 97.2 [degF] 95 % 95 % 141 /min 20 /min 137 mm[Hg] 86 mm[Hg] Laurel ELIAS BERNIE [facility] & [place] 5 12:09:03 Social History Question Answer Notes LastModified by [employer] ion Details LastModified Time Tobacco Smoking Status Never Smoker [facility] [place] 02/19/2023 14:02:59 What Is Your Level Of Alcohol Consumption? None [email or web address] Information not available 02/19/2023 What Is Your Level Of Caffeine Consumption? None [email or web address] Information not available 02/19/2023 What Was The Date Of Your Most Recent Tobacco Screening? 11/23/2023 [email or web address] Information not available 11/23/2023 Do You Use Any Illicit Or Recreational Drugs? No Information not available 02/19/2023 Has Tobacco Cessation Counseling Been Provided? No [email or web address] Information not available 07/13/2023 Do You Or Have You Ever Used Any Other Forms Of Tobacco Or Nicotine? No [email or web address] Information not available 02/19/2023 Sex: Unknown Functional Status None recorded. Mental Status None recorded. Family History Nothing Reported. Medical History No medical history recorded. Gynecological HistoryNo gynecological history recorded. Obstetrics History GPAL:G 0 P 0 0 0 0 Immunizations Vaccine Type Date Status Note Provider Nam e and Address Organization Details Recorded Time pneumococcal polysaccharide PPV23 7 completed Stephanie Maravilla [place], [place] - [place] [facility] & [place] 12/21/2023 09:56:34 Past Encounters Encounter ID Performer Location Encounter Start Date Encounter Closed Date Diagnosis/Indication Diagnosis SNOMED-CT Code Diagnosis ICD10 Code Diagnosis Note [id number] Ghassan Lieberman PA-C [facility] [address] [facility] [address] [place] [address] 02/19/2023 13:50:39 02/19/2023 14:35:58 Metastatic malignant neoplasm to liver 13180197 C78.7 Mass of colon 668166024 R19.09 Anemia 438353963 D64.9 Nausea and vomiting 1693 2000 R11.2 Unintentio nal weight loss 947990015 R63.4 Night sweats 11175783 R6 1 [id number] Addy Gonzales MD [facility] General Surgery [address] [facility] [place] [address] 03/10/2023 13:05:53 03/10/2023 14:02:07 Mass of colon 331770153 R19.09 Ascending colon. Patient has had ongoing [...] and possibilit y of ostomy. Liver mass 669002839 R16 .0 [id number] [facility] [address] [facility] [address] [place] [address] 03/11/2023 14:55:42 03/11/2023 16:34:54 Malignant tumor of ascending colon 734303925 C18.2 CT scan of the abdomen and [...] for evaluation . Discussed molecular profiling with Pooja to assess for circulatin g tumor DNA on blood sample. Will also perform additional testing on tumor sample was obtained. Discussed with patient biopsy of liver lesion for tissue diagnosis. Concern patient has metastatic colon cancer and would be stage IV. Will follow-up tissue sampling. Metastatic malignant neoplasm to liver 14577260 C78.7 CT scan of the abdomen and [...] colon cancer. Will follow-up tissue biopsy. Nausea [id number] R11.0 As needed Zofran and Phenergan prescribed . Pain due t o neoplastic disease [id number] 9102 G89.3 Right upper quadrant pain secondary to liver metastasis . Patient currently taking Tylenol. Discussed as needed oxycodone to limit Tylenol exposure. Anemia 475648024 D64.9 Right-side d colon mass concerning for malignancy . Will assess for any signs of iron deficiency . Most recent hemoglobin at 8.0. Concern for blood loss from colon mass. Patient reports dark stools. Adopted [id number] Z62.89 8 Patient is adopted and discussed hereditary gene panel. Patient does have family history of her son having bladder cancer. [id number] Tomy King MD [facility] [address] [place] [address] 04/15/2023 14:08:30 04/15/2023 15:42:28 Malignant tumor of ascending colon 252182317 C18.2 CT scan of the abdomen and [...] 8.2 hematocrit 29.0. MCV 67.9. Platelet count 349460. Normal cell differenti al. Low serum folate [...] metastatic colorectal cancer. Discussed chemothera py with [place] based regimen with 5FU Leucovorin if KRAS wild type would also add Vectibix to therapy. Will follow-up. Patient returns on April 15, 2023. Will start chemothera py as soon as possible. Metastatic malignant neoplasm to liver 50163646 C78.7 CT scan of the abdomen and [...] Findings concerning for metastatic colon cancer. Nausea 194474454 R11.0 As needed Zofran and Phenergan prescribed . Pain due t o neoplastic disease [id number] 9102 G89.3 Right upper quadrant pain secondary to liver metastasis . Patient currently taking Tylenol. Discussed as needed oxycodone to limit Tylenol exposure. Anemia 848081379 D64.9 Right-side d colon mass concerning for malignancy . Will assess for any signs of iron deficiency . Most recent hemoglobin at 8.0. Concern for blood loss from colon mass. Patient reports dark stools. Adopted [id number] Z62.89 8 Patient is adopted and discussed hereditary gene panel. Patient does have family history of her son having bladder cancer. Will send [facility] hereditary panel. [id number] Addy Gonzales MD [facility] [address] [place] [address] 04/21/2023 11:07:18 04/21/2023 11:47:40 Malignant tumor of ascending colon 066588116 C18.2 Patient has follow-up with Oncology, is debating if she wishes any further treatment at this point. I have recommende d continuing lifting restrictio ns for another 2 weeks, then can resume activity as tolerated. Patient can follow-up with me if she has ongoing issues or questions. [id number] Hanna Snider PA-C [facility] [address] [place] [address] 04/29/2023 10:08:09 04/29/2023 10:08:41 Malignant tumor of ascending colon 891123466 C18.2 CT scan of the abdomen and [...] 8.2 hematocrit 29.0. MCV 67.9. Platelet count 124578. Normal cell differenti al. Low serum folate [...] metastatic colorectal cancer. Discussed chemothera py with [place] based regimen with 5FU Leucovorin if [...] angela portillo. Metastatic malignant neoplasm to liver 88732275 C78.7 CT scan of the abdomen and [...] Findings concerning for metastatic colon cancer. Nausea 665259244 R11.0 As needed Zofran and Phenergan prescribed . Pain due t o neoplastic disease 1325189389 9102 G89.3 Right upper quadrant pain secondary to liver metastasis . Patient currently taking Tylenol. Discussed as needed oxycodone to limit Tylenol exposure. Anemia 167163429 D64.9 Right-side d colon mass concerning for malignancy . Will assess for any signs of iron deficiency . Most recent hemoglobin at 8.0. Concern for blood loss from colon mass. Patient reports dark stools. Adopted 831053611 Z62.89 8 Patient is adopted and discussed hereditary gene panel. Patient does have family history of her son having bladder cancer. Will send [facility] hereditary panel. Antineopla stic chemotherapy regimen 720115291 Z51.11 Cycle 1 5FU Leucovorin Vectibix on April 29, 2023. Hypomagnesemia 767356122 E83.42 Patient returns on April 29, 2023. Magnesium level is 1.7 today. Will give 1 g magnesium IV. Hypokalemia 31037675 E87 .6 Patient returns on April 29, 2023. Potassium is low at 2.9. Will send prescripti on for potassium 20 mEq daily. Will follow-up labs again next week. Loss of appetite 2181920 6 R63.0 Patient has had nausea and decreased appetite since her cancer diagnosis. She can not tolerate her nutritiona l drinks. She does take Phenergan with relief. She continues to lose weight. Will send prescripti on for Megace. [id number] Hanna Snider PA-C [facility] [address] [place] [address] 05/04/2023 09:35:22 05/04/2023 09:45:11 Malignant tumor of ascending colon 702541097 C18.2 CT scan of the abdomen and [...] 8.2 hematocrit 29.0. MCV 67.9. Platelet count 495179. Normal cell differenti al. Low serum folate [...] metastatic colorectal cancer. Discussed chemothera py with [place] based regimen with 5FU Leucovorin if [...] has started on Megace. Will follow-up for angela portillo. Metastatic malignant neoplasm to liver 47809310 C78.7 CT scan of the abdomen and [...] Findings concerning for metastatic colon cancer. Nausea 586261076 R11.0 As needed Zofran and Phenergan prescribed . Pain due t o neoplastic disease 8728013984 9102 G89.3 Right upper quadrant pain secondary to liver metastasis . Patient currently taking Tylenol. Discussed as needed oxycodone to limit Tylenol exposure. Anemia 502243438 D64.9 Right-side d colon mass concerning for malignancy . Will assess for any signs of iron deficiency . Most recent hemoglobin at 8.0. Concern for blood loss from colon mass. Patient reports dark stools. Adopted [id number] Z62.89 8 Patient is adopted and discussed hereditary gene panel. Patient does have family history of her son having bladder cancer. Will send [facility] hereditary panel. Antineopla stic chemotherapy regimen 721852956 Z51.11 Cycle 1 5FU Leucovorin Vectibix on April 29, 2023. Cycle 2 5FU Leucovorin Vectibix on May 04, 2023. Hypomagnesemia 960732665 E83.42 Patient returns on April 29, 2023. Magnesium level is 1.7 today. Will give 1 g magnesium IV. Hypokalemia 99859254 E87 .6 Patient returns on April 29, 2023. Potassium is low at 2.9. Will send prescripti on for potassium 20 mEq daily. Will follow-up labs again next week. Loss of appetite 1236347 6 R63.0 Patient has had nausea and decreased appetite since her cancer diagnosis. She can not tolerate her nutritiona l drinks. She does take Phenergan with relief. She continues to lose weight. Will send prescripti on for Megace. [id number] Hanna Snider PA-C [facility] [address] [place] [address] 05/11/2023 09:04:44 05/11/2023 13:02:16 Malignant tumor of ascending colon 428878667 C18.2 CT scan of the abdomen and [...] 8.2 hematocrit 29.0. MCV 67.9. Platelet count 660313. Normal cell differenti al. Low serum folate [...] metastatic colorectal cancer. Discussed chemothera py with [place] based regimen with 5FU Leucovorin if [...] a new prescripti on. Will follow-up for improvemen t. Metastatic malignant neoplasm to liver 25802108 C78.7 CT scan of the abdomen and [...] Findings concerning for metastatic colon cancer. Nausea 471480950 R11.0 As needed Zofran and Phenergan prescribed . Pain due t o neoplastic disease 2397709308 9102 G89.3 Right upper quadrant pain secondary to liver metastasis . Patient currently taking Tylenol. Discussed as needed oxycodone to limit Tylenol exposure. Anemia 276392746 D64.9 Right-side d colon mass concerning for malignancy . Will assess for any signs of iron deficiency . Most recent hemoglobin at 8.0. Concern for blood loss from colon mass. Patient reports dark stools. Adopted 492961513 Z62.89 8 Patient is adopted and discussed hereditary gene panel. Patient does have family history of her son having bladder cancer. Will send [facility] hereditary panel. Antineopla stic chemotherapy regimen 318991638 Z51.11 Cycle 1 5FU Leucovorin Vectibix on April 29, 2023. Cycle 2 5FU Leucovorin Vectibix on May 04, 2023. Cycle 3 5FU Leucovorin Vectibix on May 11, 2023. Hypomagnesemia 072111749 E83.42 Patient returns on April 29, 2023. Magnesium level is 1.7 today. Will give 1 g magnesium IV. Hypokalemia 18943584 E87 .6 Patient returns on April 29, 2023. Potassium is low at 2.9. Will send prescripti on for potassium 20 mEq daily. Will follow-up labs again next week. Loss of appetite 3253515 6 R63.0 Patient has had nausea and decreased appetite since her cancer diagnosis. She can not tolerate her nutritiona l drinks. She does take Phenergan with relief. She continues to lose weight. Will send prescripti on for Megace. Acute conjunctivitis 710 72923 H10.32 Patient returns on May 11, 2023. She has had erythema, conjuntiva inflammati on, discharged and matted left eye. She has been using warm compresses . Will send prescripti on for eye drops for conjunctiv itis. Diarrhea 39135022 R19.7 She has had diarrhea since night. She has tried Imodium and Pepto. Discussed taking Lomotil instead. [id number] Addy Gonzales MD [facility] [address] [place] [address] 05/07/2023 13:50:57 05/07/2023 15:14:30 Malignant tumor of ascending colon 288968954 C18.2 I have scheduled the patient for venous port placement. informed consent was obtained. Risks of the procedure including bleeding, infection, catheter complicati ons and damage to surroundin g structures were discussed [id number] Hanna Snider PA-C [facility] [address] [place] [address] 06/02/2023 09:27:10 06/02/2023 10:20:16 Malignant tumor of ascending colon 136008562 C18.2 CT scan of the abdomen and [...] 8.2 hematocrit 29.0. MCV 67.9. Platelet count 919958. Normal cell differenti al. Low serum folate [...] metastatic colorectal cancer. Discussed chemothera py with [place] based regimen with 5FU Leucovorin if [...] to chemothera py and following up with optometramy t. Will follow up labs today. Metastatic malignant neoplasm to liver 11906983 C78.7 CT scan of the abdomen and [...] Findings concerning for metastatic colon cancer. Nausea 514397550 R11.0 As needed Zofran and Phenergan prescribed . Pain due t o neoplastic disease 1025562157 9102 G89.3 Right upper quadrant pain secondary to liver metastasis . Patient currently taking Tylenol. Discussed as needed oxycodone to limit Tylenol exposure. Anemia 217062879 D64.9 Right-side d colon mass concerning for malignancy . Will assess for any signs of iron deficiency . Most recent hemoglobin at 8.0. Concern for blood loss from colon mass. Patient reports dark stools. Adopted 564390823 Z62.89 8 Patient is adopted and discussed hereditary gene panel. Patient does have family history of her son having bladder cancer. Will send [facility] hereditary panel. Antineopla stic chemotherapy regimen 616305802 Z51.11 Cycle 1 5FU Leucovorin Vectibix on April 29, 2023. Cycle 2 5FU Leucovorin Vectibix on May 04, 2023. Cycle 3 5FU Leucovorin Vectibix on May 11, 2023. Hypomagnesemia 008825913 E83.42 Patient returns on April 29, 2023. Magnesium level is 1.7 today. Will give 1 g magnesium IV. Hypokalemia 93022339 E87 .6 Patient returns on April 29, 2023. Potassium is low at 2.9. Will send prescripti on for potassium 20 mEq daily. Will follow-up labs again next week. Loss of appetite 0826239 6 R63.0 Patient has had nausea and decreased appetite since her cancer diagnosis. She can not tolerate her nutritiona l drinks. She does take Phenergan with relief. She continues to lose weight. Will send prescripti on for Megace. Acute conjunctivitis 537 68985 H10.32 Patient returns on May 11, 2023. She has had erythema, conjuntiva inflammati on, discharged and matted left eye. She has been using warm compresses . Will send prescripti on for eye drops for conjunctiv itis. Diarrhea 00097021 R19.7 Diarrhea has resolved. Patient with recent C diff Deep venou s thrombosis 964638637 I82.409 Patient developed right lower extremity pain and edema. Venous duplex on May 28, 2023 with evidence of deep vein thrombosis . Started on Eliquis 5 mg 1 tab p.o. b.i.d.. Did not start with Eliquis starter pack due to recent bleeding. Patient had a DVT and a PE in 1990 after her hysterecto my. Will order hypercoagu lable panel today. Anxiety 83929478 F41.9 Patient has had increased anxiety. She is tearful and crying during her visit today due to all of her health problems. She does not want to take an antidepres melina at this time. Discussed low-dose Ativan. Muscle weakness 46844731 M62.81 Patient is feeling weak and is requesting a lift chair. Will see if insurance will cover. Discussed home health but patient declines at this time. [id number] Tomy King MD [facility] [address] [place] [address] 06/08/2023 09:23:07 06/08/2023 11:39:14 Malignant tumor of ascending colon 675050048 C18.2 CT scan of the abdomen and [...] 8.2 hematocrit 29.0. MCV 67.9. Platelet count 948701. Normal cell differenti al. Low serum folate [...] labs today. Metastatic malignant neoplasm to liver 13425804 C78.7 CT scan of the abdomen and [...] Findings concerning for metastatic colon cancer. Nausea 838525368 R11.0 As needed Zofran and Phenergan prescribed . Pain due t o neoplastic disease 8343922324 9102 G89.3 Right upper quadrant pain secondary to liver metastasis . Patient currently taking Tylenol. Discussed as needed oxycodone to limit Tylenol exposure. Anemia 793802058 D64.9 Right-side d colon mass concerning for malignancy . Will assess for any signs of iron deficiency . Most recent hemoglobin at 8.0. Concern for blood loss from colon mass. Patient reports dark stools. Adopted 238675685 Z62.89 8 Patient is adopted and discussed hereditary gene panel. Patient does have family history of her son having bladder cancer. Will send [facility] hereditary panel. Antineopla stic chemotherapy regimen 791236240 Z51.11 Week 1 5FU Leucovorin Vectibix on [...] return for cycle 2 day 1 Hypomagnesemia 553890528 E83.42 Patient returns on April 29, 2023. Magnesium level is 1.7 today. Will give 1 g magnesium IV. Hypokalemia 28230973 E87 .6 Patient returns on April 29, 2023. Potassium is low at 2.9. Will send prescripti on for potassium 20 mEq daily. Will follow-up labs again next week. Loss of appetite 5632523 6 R63.0 Patient has had nausea and decreased appetite since her cancer diagnosis. She can not tolerate her nutritiona l drinks. She does take Phenergan with relief. She continues to lose weight. Will send prescripti on for Megace. Acute conjunctivitis 537 28325 H10.32 Patient returns on May 11, 2023. She has had erythema, conjuntiva inflammati on, discharged and matted left eye. She has been using warm compresses . Will send prescripti on for eye drops for conjunctiv itis.Will send in repeat prescripti on for eye drops. Diarrhea 99302852 R19.7 Diarrhea has resolved. Patient with recent C diff Deep venou s thrombosis 743721132 I82.409 Patient developed right lower extremity pain and edema.Veno us duplex on May 28, 2023 with evidence of deep vein thrombosis . Started on Eliquis 5 mg 1 tab p.o. b.i.d.. Did not start with Eliquis starter pack due to recent bleeding. Patient had a DVT and a PE in 1990 after her hysterecto my. Anxiety 58851996 F41.9 Patient has had increased anxiety. She is tearful and crying during her visit today due to all of her health problems. She does not want to take an antidepres melina at this time. Discussed low-dose Ativan. Improvemen t in mood overall on visit from June 08, 2023. [id number] Addy Gonzales MD [facility] [address] [place] [address] 06/05/2023 10:23:30 06/05/2023 11:32:28 Malignant tumor of ascending colon 083623074 C18.2 Needs port placed, cannot do this [...] can save her the long drive in. [id number] Tomy King MD [facility] [address] [place] [address] 06/22/2023 10:06:43 06/22/2023 12:44:59 Malignant tumor of ascending colon 924400340 C18.2 CT scan of the abdomen and [...] 8.2 hematocrit 29.0. MCV 67.9. Platelet count 114823. Normal cell differenti al. Low serum folate [...] next month. Metastatic malignant neoplasm to liver 48919133 C78.7 CT scan of the abdomen and [...] Findings concerning for metastatic colon cancer. Nausea 497084738 R11.0 As needed Zofran and Phenergan prescribed . Pain due t o neoplastic disease 4904320220 9102 G89.3 Right upper quadrant pain secondary to liver metastasis . Patient currently taking Tylenol. Discussed as needed oxycodone to limit Tylenol exposure. Anemia 924971982 D64.9 Right-side d colon mass concerning for malignancy . Will assess for any signs of iron deficiency . Most recent hemoglobin at 8.0. Concern for blood loss from colon mass. Patient reports dark stools. Adopted 777848339 Z62.89 8 Patient is adopted and discussed hereditary gene panel. Patient does have family history of her son having bladder cancer. Will send [facility] hereditary panel. Antineopla stic chemotherapy regimen 026577398 Z51.11 Week 1 5FU Leucovorin Vectibix on [...] and Vectibix on July 06, 2023. Hypokalemia 76599196 E87 .6 Patient returns on April 29, 2023. Potassium is low at 2.9. Will send prescripti on for potassium 20 mEq daily. Will follow-up labs again next week. Loss of appetite 3109419 6 R63.0 Patient has had nausea and decreased appetite since her cancer diagnosis. She can not tolerate her nutritiona l drinks. She does take Phenergan with relief. She continues to lose weight. Will send prescripti on for Megace. Acute conjunctivitis 532 11542 H10.32 Patient returns on May 11, 2023. She has had erythema, conjuntiva inflammati on, discharged and matted left eye. She has been using warm compresses . Will send prescripti on for eye drops for conjunctiv itis.Will send in repeat prescripti on for eye drops. Diarrhea 41633279 R19.7 Diarrhea has resolved. Patient with recent C diff Deep venou s thrombosis 671507923 I82.409 Patient developed right lower extremity pain and edema.Veno us duplex on May 28, 2023 with evidence of deep vein thrombosis . Started on Eliquis 5 mg 1 tab p.o. b.i.d.. Did not start with Eliquis starter pack due to recent bleeding. Patient had a DVT and a PE in 1990 after her hysterecto my. Anxiety 42689422 F41.9 Patient has had increased anxiety. She is tearful and crying during her visit today due to all of her health problems. She does not want to take an antidepres melina at this time. Discussed low-dose Ativan. Improvemen t in mood overall on visit from June 08, 2023. [id number] Tomy King MD [facility] [address] [place] [address] 07/13/2023 09:25:11 07/13/2023 10:53:59 Malignant tumor of ascending colon 706439794 C18.2 CT scan of the abdomen and [...] 8.2 hematocrit 29.0. MCV 67.9. Platelet count 741765. Normal cell differenti al. Low serum folate [...] for now. Metastatic malignant neoplasm to liver 74672215 C78.7 CT scan of the abdomen and [...] Findings concerning for metastatic colon cancer. Nausea 988743704 R11.0 As needed Zofran and Phenergan prescribed . Pain due t o neoplastic disease 1147209142 9102 G89.3 Right upper quadrant pain secondary to liver metastasis . Patient currently taking Tylenol. Discussed as needed oxycodone to limit Tylenol exposure. Anemia 470938222 D64.9 Right-side d colon mass concerning for malignancy . Will assess for any signs of iron deficiency . Most recent hemoglobin at 8.0. Concern for blood loss from colon mass. Patient reports dark stools. Adopted 692186617 Z62.89 8 Patient is adopted and discussed hereditary gene panel. Patient does have family history of her son having bladder cancer. Will send [facility] hereditary panel. Antineopla stic chemotherapy regimen 994567167 Z51.11 Week 1 5FU Leucovorin Vectibix on April 29, 2023.Week 2 5FU Leucovorin Vectibix on May 04, 2023.Week 3 5FU Leucovorin Vectibix on May 11, 2023.Week 4 5FU Leucovorin and Vectibix on June 08, 2023.Day 29 of 5FU Leucovorin and Vectibix on June 22, 2023. Cycle 2 day 1 of 5FU Leucovorin and Vectibix on July 13, 2023. Hypokalemia 25859797 E87 .6 Patient returns on April 29, 2023. Potassium is low at 2.9. Will send prescripti on for potassium 20 mEq daily. Will follow-up labs again next week. Loss of appetite 9661117 6 R63.0 Patient has had nausea and decreased appetite since her cancer diagnosis. She can not tolerate her nutritiona l drinks. She does take Phenergan with relief. She continues to lose weight. Will send prescripti on for Megace. Acute conjunctivitis 537 92794 H10.32 Patient returns on May 11, 2023. She has had erythema, conjuntiva inflammati on, discharged and matted left eye. She has been using warm compresses . Will send prescripti on for eye drops for conjunctiv itis.Will send in repeat prescripti on for eye drops. Diarrhea 42033599 R19.7 Diarrhea has resolved. Patient with recent C diff Deep venou s thrombosis 105696658 I82.411 Patient developed right lower extremity pain and edema.Veno us duplex on May 28, 2023 with evidence of deep vein thrombosis . Started on Eliquis 5 mg 1 tab p.o. b.i.d.. Did not start with Eliquis starter pack due to recent bleeding. Patient had a DVT and a PE in 1990 after her hysterecto my. Anxiety 04877375 F41.9 Patient has had increased anxiety. She is tearful and crying during her visit today due to all of her health problems. She does not want to take an antidepres melina at this time. Discussed low-dose Ativan. Improvemen t in mood overall on visit from June 08, 2023. [id number] Hanna Snider PA-C [facility] [address] [place] [address] 07/27/2023 09:02:25 07/27/2023 10:25:44 Malignant tumor of ascending colon 190617073 C18.2 CT scan of the abdomen and [...] 8.2 hematocrit 29.0. MCV 67.9. Platelet count 256739. Normal cell differenti al. Low serum folate [...] Will follow-up Metastatic malignant neoplasm to liver 49711611 C78.7 CT scan of the abdomen and [...] Findings concerning for metastatic colon cancer. Nausea 308512641 R11.0 As needed Zofran and Phenergan prescribed . Pain due t o neoplastic disease 5179366735 9102 G89.3 Right upper quadrant pain secondary to liver metastasis . Patient currently taking Tylenol. Discussed as needed oxycodone to limit Tylenol exposure. Anemia 399994414 D64.9 Right-side d colon mass concerning for malignancy . Will assess for any signs of iron deficiency . Most recent hemoglobin at 8.0. Concern for blood loss from colon mass. Patient reports dark stools. Adopted 841949618 Z62.89 8 Patient is adopted and discussed hereditary gene panel. Patient does have family history of her son having bladder cancer. Will send [facility] hereditary panel. Antineopla stic chemotherapy regimen 561995714 Z51.11 Week 1 5FU Leucovorin Vectibix on [...] and Vectibix on July 27, 2023. Hypokalemia 01663209 E87 .6 Patient returns on April 29, 2023. Potassium is low at 2.9. Will send prescripti on for potassium 20 mEq daily. Will follow-up labs again next week. Loss of appetite 6131500 6 R63.0 Patient has had nausea and decreased appetite since her cancer diagnosis. She can not tolerate her nutritiona l drinks. She does take Phenergan with relief. She continues to lose weight. Will send prescripti on for Megace. Acute conjunctivitis 537 55182 H10.32 Patient returns on May 11, 2023. She has had erythema, conjuntiva inflammati on, discharged and matted left eye. She has been using warm compresses . Will send prescripti on for eye drops for conjunctiv itis.Will send in repeat prescripti on for eye drops. Diarrhea 47338906 R19.7 Diarrhea has resolved. Patient with recent C diff Deep venou s thrombosis 405277194 I82.409 Patient developed right lower extremity pain and edema.Veno us duplex on May 28, 2023 with evidence of deep vein thrombosis . Started on Eliquis 5 mg 1 tab p.o. b.i.d.. Did not start with Eliquis starter pack due to recent bleeding. Patient had a DVT and a PE in 1990 after her hysterecto my. Anxiety 41489856 F41.9 Patient has had increased anxiety. She is tearful and crying during her visit today due to all of her health problems. She does not want to take an antidepres melina at this time. Discussed low-dose Ativan. Improvemen t in mood overall on visit from June 08, 2023. [id number] Hanna Snider PA-C [facility] [address] [place] [address] 08/10/2023 09:01:37 08/10/2023 09:59:21 Malignant tumor of ascending colon [id number] C18.2 CT scan of the abdomen and [...] 8.2 hematocrit 29.0. MCV 67.9. Platelet count 784655. Normal cell differenti al. Low serum folate [...] Will follow-up. Metastatic malignant neoplasm to liver 49343857 C78.7 CT scan of the abdomen and [...] Findings concerning for metastatic colon cancer. Nausea 362876236 R11.0 As needed Zofran and Phenergan prescribed . Pain due t o neoplastic disease [id number] 9102 G89.3 Right upper quadrant pain secondary to liver metastasis . Patient currently taking Tylenol. Discussed as needed oxycodone to limit Tylenol exposure. Anemia 670329369 D64.9 Right-side d colon mass concerning for malignancy . Will assess for any signs of iron deficiency . Most recent hemoglobin at 8.0. Concern for blood loss from colon mass. Patient reports dark stools. Adopted [id number] Z62.89 8 Patient is adopted and discussed hereditary gene panel. Patient does have family history of her son having bladder cancer. Will send [facility] hereditary panel. Antineopla stic chemotherapy regimen 367837424 Z51.11 Week 1 5FU Leucovorin Vectibix on [...] and Vectibix on August 10, 2023. Hypokalemia 23169793 E87 .6 Patient returns on April 29, 2023. Potassium is low at 2.9. Will send prescripti on for potassium 20 mEq daily. Will follow-up labs again next week. Loss of appetite 9128288 6 R63.0 Patient has had nausea and decreased appetite since her cancer diagnosis. She can not tolerate her nutritiona l drinks. She does take Phenergan with relief. She continues to lose weight. Will send prescripti on for Megace. Acute conjunctivitis 681 42844 H10.32 Patient returns on May 11, 2023. She has had erythema, conjuntiva inflammati on, discharged and matted left eye. She has been using warm compresses . Will send prescripti on for eye drops for conjunctiv itis.Will send in repeat prescripti on for eye drops. Diarrhea 91126900 R19.7 Diarrhea has resolved. Patient with recent C diff Deep venou s thrombosis [id number] I82.409 Patient developed right lower extremity pain and edema.Veno us duplex on May 28, 2023 with evidence of deep vein thrombosis . Started on Eliquis 5 mg 1 tab p.o. b.i.d.. Did not start with Eliquis starter pack due to recent bleeding. Patient had a DVT and a PE in 1990 after her hysterecto my. Anxiety 74671033 F41.9 Patient has had increased anxiety. She is tearful and crying during her visit today due to all of her health problems. She does not want to take an antidepres melina at this time. Discussed low-dose Ativan. Improvemen t in mood overall on visit from June 08, 2023. [id number] Tomy King MD [facility] [address] [place] [address] 08/24/2023 09:22:37 08/24/2023 09:52:19 Malignant tumor of ascending colon [id number] C18.2 CT scan of the abdomen and [...] 8.2 hematocrit 29.0. MCV 67.9. Platelet count 633393. Normal cell differenti al. Low serum folate [...] Will follow-up Metastatic malignant neoplasm to liver 73807728 C78.7 CT scan of the abdomen and [...] Findings concerning for metastatic colon cancer. Nausea 993657206 R11.0 As needed Zofran and Phenergan prescribed . Pain due t o neoplastic disease [id number] 9102 G89.3 Right upper quadrant pain secondary to liver metastasis . Patient currently taking Tylenol. Discussed as needed oxycodone to limit Tylenol exposure. Anemia 246837088 D64.9 Right-side d colon mass concerning for malignancy . Will assess for any signs of iron deficiency . Most recent hemoglobin at 8.0. Concern for blood loss from colon mass. Patient reports dark stools. Adopted [id number] Z62.89 8 Patient is adopted and discussed hereditary gene panel. Patient does have family history of her son having bladder cancer. Will send [facility] hereditary panel. Antineopla stic chemotherapy regimen 488570323 Z51.11 Week 1 5FU Leucovorin Vectibix on [...] and Vectibix on August 24, 2023. Hypokalemia 14858052 E87 .6 Patient returns on April 29, 2023. Potassium is low at 2.9. Will send prescripti on for potassium 20 mEq daily. Will follow-up labs again next week. Loss of appetite 4093316 6 R63.0 Patient has had nausea and decreased appetite since her cancer diagnosis. She can not tolerate her nutritiona l drinks. She does take Phenergan with relief. She continues to lose weight. Will send prescripti on for Megace. Acute conjunctivitis 230 19330 H10.32 Patient returns on May 11, 2023. She has had erythema, conjuntiva inflammati on, discharged and matted left eye. She has been using warm compresses . Will send prescripti on for eye drops for conjunctiv itis.Will send in repeat prescripti on for eye drops. Diarrhea 64906698 R19.7 Diarrhea has resolved. Patient with recent C diff Deep venou s thrombosis 655050319 I82.409 Patient developed right lower extremity pain and edema.Veno us duplex on May 28, 2023 with evidence of deep vein thrombosis . Started on Eliquis 5 mg 1 tab p.o. b.i.d.. Did not start with Eliquis starter pack due to recent bleeding. Patient had a DVT and a PE in 1990 after her hysterecto my. Anxiety 83388650 F41.9 Patient has had increased anxiety. She is tearful and crying during her visit today due to all of her health problems. She does not want to take an antidepres melina at this time. Discussed low-dose Ativan. Improvemen t in mood overall on visit from June 08, 2023. [id number] Hanna Snider PA-C [facility] [address] [place] [address] 09/07/2023 08:42:30 09/07/2023 09:21:28 Malignant tumor of ascending colon 713310086 C18.2 CT scan of the abdomen and [...] 8.2 hematocrit 29.0. MCV 67.9. Platelet count 490934. Normal cell differenti al. Low serum folate [...] Will follow-up. Metastatic malignant neoplasm to liver 32020185 C78.7 CT scan of the abdomen and [...] Findings concerning for metastatic colon cancer. Nausea 474736003 R11.0 As needed Zofran and Phenergan prescribed . Pain due t o neoplastic disease 3039924161 9102 G89.3 Right upper quadrant pain secondary to liver metastasis . Patient currently taking Tylenol. Discussed as needed oxycodone to limit Tylenol exposure. Anemia 160705260 D64.9 Right-side d colon mass concerning for malignancy . Will assess for any signs of iron deficiency . Most recent hemoglobin at 8.0. Concern for blood loss from colon mass. Patient reports dark stools. Adopted 136777090 Z62.89 8 Patient is adopted and discussed hereditary gene panel. Patient does have family history of her son having bladder cancer. Will send [facility] hereditary panel. Antineopla stic chemotherapy regimen 210322094 Z51.11 Week 1 5FU Leucovorin Vectibix on [...] Vectibix today secondary to conjunctiv itis Hypokalemia 84537589 E87 .6 Patient returns on April 29, 2023. Potassium is low at 2.9. Will send prescripti on for potassium 20 mEq daily. Will follow-up labs again next week. Loss of appetite 5704559 6 R63.0 Patient has had nausea and decreased appetite since her cancer diagnosis. She can not tolerate her nutritiona l drinks. She does take Phenergan with relief. She continues to lose weight. Will send prescripti on for Megace. Acute conjunctivitis 537 96583 H10.32 Patient returns on May 11, 2023. She has had erythema, conjuntiva inflammati on, discharged and matted left eye. She has been using warm compresses . Will send prescripti on for eye drops for conjunctiv itis.Will send in repeat prescripti on for eye drops. Diarrhea 06858642 R19.7 Diarrhea has resolved. Patient with recent C diff Deep venou s thrombosis 705191954 I82.409 Patient developed right lower extremity pain and edema.Veno us duplex on May 28, 2023 with evidence of deep vein thrombosis . Started on Eliquis 5 mg 1 tab p.o. b.i.d.. Did not start with Eliquis starter pack due to recent bleeding. Patient had a DVT and a PE in 1990 after her hysterecto my. Anxiety 67491213 F41.9 Patient has had increased anxiety. She is tearful and crying during her visit today due to all of her health problems. She does not want to take an antidepres melina at this time. Discussed low-dose Ativan. Improvemen t in mood overall on visit from June 08, 2023. [id number] Tomy King MD [facility] [address] [place] [address] 09/21/2023 09:41:41 09/21/2023 11:20:44 Malignant tumor of ascending colon 622146002 C18.2 CT scan of the abdomen and [...] 8.2 hematocrit 29.0. MCV 67.9. Platelet count 891962. Normal cell differenti al. Low serum folate [...] to improve. Metastatic malignant neoplasm to liver 97241310 C78.7 CT scan of the abdomen and [...] Findings concerning for metastatic colon cancer. Nausea 459357949 R11.0 As needed Zofran and Phenergan prescribed . Pain due t o neoplastic disease 3360953271 9102 G89.3 Right upper quadrant pain secondary to liver metastasis . Patient currently taking Tylenol. Discussed as needed oxycodone to limit Tylenol exposure. Anemia 677947141 D64.9 Right-side d colon mass concerning for malignancy . Will assess for any signs of iron deficiency . Most recent hemoglobin at 8.0. Concern for blood loss from colon mass. Patient reports dark stools. Adopted 962837184 Z62.89 8 Patient is adopted and discussed hereditary gene panel. Patient does have family history of her son having bladder cancer. Will send [facility] hereditary panel. Antineopla stic chemotherapy regimen 838376188 Z51.11 Week 1 5FU Leucovorin Vectibix on [...] dose held secondary to conjunctiv itis. Hypokalemia 63695305 E87 .6 Patient returns on April 29, 2023. Potassium is low at 2.9. Will send prescripti on for potassium 20 mEq daily. Will follow-up labs again next week. Loss of appetite 2715106 6 R63.0 Patient has had nausea and decreased appetite since her cancer diagnosis. She can not tolerate her nutritiona l drinks. She does take Phenergan with relief. She continues to lose weight. Will send prescripti on for Megace. Acute conjunctivitis 537 73736 H10.32 Patient returns on May 11, 2023. She has had erythema, conjuntiva inflammati on, discharged and matted left eye. She has been using warm compresses . Will send prescripti on for eye drops for conjunctiv itis.Will send in repeat prescripti on for eye drops. Diarrhea 47350346 R19.7 Diarrhea has resolved. Patient with recent C diff Deep venou s thrombosis 561913562 I82.409 Patient developed right lower extremity pain and edema.Veno us duplex on May 28, 2023 with evidence of deep vein thrombosis . Started on Eliquis 5 mg 1 tab p.o. b.i.d.. Did not start with Eliquis starter pack due to recent bleeding. Patient had a DVT and a PE in 1990 after her hysterecto my. Anxiety 46124616 F41.9 Patient has had increased anxiety. She is tearful and crying during her visit today due to all of her health problems. She does not want to take an antidepres melina at this time. Discussed low-dose Ativan. Improvemen t in mood overall on visit from June 08, 2023. [id number] Hanna Snider PA-C [facility] [address] [facility] [address] [place] [address] 10/05/2023 09:19:08 10/05/2023 10:17:18 Malignant tumor of ascending colon 460427491 C18.2 CT scan of the abdomen and [...] 8.2 hematocrit 29.0. MCV 67.9. Platelet count 888322. Normal cell differenti al. Low serum folate [...] bilaterall y. Metastatic malignant neoplasm to liver 23532141 C78.7 CT scan of the abdomen and [...] Findings concerning for metastatic colon cancer. Nausea 580024375 R11.0 As needed Zofran and Phenergan prescribed . Pain due t o neoplastic disease 8865485335 9102 G89.3 Right upper quadrant pain secondary to liver metastasis . Patient currently taking Tylenol. Discussed as needed oxycodone to limit Tylenol exposure. Anemia 616988201 D64.9 Right-side d colon mass concerning for malignancy . Will assess for any signs of iron deficiency . Most recent hemoglobin at 8.0. Concern for blood loss from colon mass. Patient reports dark stools. Adopted 576990653 Z62.89 8 Patient is adopted and discussed hereditary gene panel. Patient does have family history of her son having bladder cancer. Will send [facility] hereditary panel. Antineopla stic chemotherapy regimen 245638985 Z51.11 Week 1 5FU Leucovorin Vectibix on [...] membranes of the eyes bilaterall y. Hypokalemia 82813065 E87 .6 Patient returns on April 29, 2023. Potassium is low at 2.9. Will send prescripti on for potassium 20 mEq daily. Will follow-up labs again next week. Loss of appetite 2625476 6 R63.0 Patient has had nausea and decreased appetite since her cancer diagnosis. She can not tolerate her nutritiona l drinks. She does take Phenergan with relief. She continues to lose weight. Will send prescripti on for Megace. Acute conjunctivitis 537 41817 H10.32 Patient returns on May 11, 2023. She has had erythema, conjuntiva inflammati on, discharged and matted left eye. She has been using warm compresses . Will send prescripti on for eye drops for conjunctiv itis.Will send in repeat prescripti on for eye drops. Diarrhea 43485087 R19.7 Diarrhea has resolved. Patient with recent C diff Deep venou s thrombosis 886839987 I82.409 Patient developed right lower extremity pain and edema.Veno us duplex on May 28, 2023 with evidence of deep vein thrombosis . Started on Eliquis 5 mg 1 tab p.o. b.i.d.. Did not start with Eliquis starter pack due to recent bleeding. Patient had a DVT and a PE in 1990 after her hysterecto my. Anxiety 39874432 F41.9 Patient has had increased anxiety. She is tearful and crying during her visit today due to all of her health problems. She does not want to take an antidepres melina at this time. Discussed low-dose Ativan. Improvemen t in mood overall on visit from June 08, 2023. [id number] Hanna Snider PA-C [facility] [address] [facility] [address] [place] [address] 10/19/2023 09:07:50 10/19/2023 10:19:57 Malignant tumor of ascending colon 828127723 C18.2 CT scan of the abdomen and [...] 8.2 hematocrit 29.0. MCV 67.9. Platelet count 158862. Normal cell differenti al. Low serum folate [...] appropriat froilan. Metastatic malignant neoplasm to liver 71797920 C78.7 CT scan of the abdomen and [...] Findings concerning for metastatic colon cancer. Nausea 039083999 R11.0 As needed Zofran and Phenergan prescribed . Pain due t o neoplastic disease 2297056886 9102 G89.3 Right upper quadrant pain secondary to liver metastasis . Patient currently taking Tylenol. Discussed as needed oxycodone to limit Tylenol exposure. Anemia 052647413 D64.9 Right-side d colon mass concerning for malignancy . Will assess for any signs of iron deficiency . Most recent hemoglobin at 8.0. Concern for blood loss from colon mass. Patient reports dark stools. Adopted 588655254 Z62.89 8 Patient is adopted and discussed hereditary gene panel. Patient does have family history of her son having bladder cancer. Will send [facility] hereditary panel. Antineopla stic chemotherapy regimen 509453722 Z51.11 Week 1 5FU Leucovorin Vectibix on [...] with Vectibix on October 19, 2023. Hypokalemia 27562689 E87 .6 Patient returns on April 29, 2023. Potassium is low at 2.9. Will send prescripti on for potassium 20 mEq daily. Will follow-up labs again next week. Loss of appetite 7212965 6 R63.0 Patient has had nausea and decreased appetite since her cancer diagnosis. She can not tolerate her nutritiona l drinks. She does take Phenergan with relief. She continues to lose weight. Will send prescripti on for Megace. Acute conjunctivitis 537 76954 H10.32 Patient returns on May 11, 2023. She has had erythema, conjuntiva inflammati on, discharged and matted left eye. She has been using warm compresses . Will send prescripti on for eye drops for conjunctiv itis.Will send in repeat prescripti on for eye drops. Diarrhea 52675199 R19.7 Diarrhea has resolved. Patient with recent C diff Deep venou s thrombosis 808469656 I82.409 Patient developed right lower extremity pain and edema.Veno us duplex on May 28, 2023 with evidence of deep vein thrombosis . Started on Eliquis 5 mg 1 tab p.o. b.i.d.. Did not start with Eliquis starter pack due to recent bleeding. Patient had a DVT and a PE in 1990 after her hysterecto my. Anxiety 96214572 F41.9 Patient has had increased anxiety. She is tearful and crying during her visit today due to all of her health problems. She does not want to take an antidepres melina at this time. Discussed low-dose Ativan. Improvemen t in mood overall on visit from June 08, 2023. [id number] Hanna Snider PA-C [facility] [address] [place] [address] 11/02/2023 09:20:10 11/02/2023 09:58:16 Malignant tumor of ascending colon 517136840 C18.2 CT scan of the abdomen and [...] 8.2 hematocrit 29.0. MCV 67.9. Platelet count 405911. Normal cell differenti al. Low serum folate [...] ed Eliquis Metastatic malignant neoplasm to liver 89569439 C78.7 CT scan of the abdomen and [...] Findings concerning for metastatic colon cancer. Nausea 928702509 R11.0 As needed Zofran and Phenergan prescribed . Pain due t o neoplastic disease 6253946969 9102 G89.3 Right upper quadrant pain secondary to liver metastasis . Patient currently taking Tylenol. Discussed as needed oxycodone to limit Tylenol exposure. Anemia 722429710 D64.9 Right-side d colon mass concerning for malignancy . Will assess for any signs of iron deficiency . Most recent hemoglobin at 8.0. Concern for blood loss from colon mass. Patient reports dark stools. Adopted 750614163 Z62.89 8 Patient is adopted and discussed hereditary gene panel. Patient does have family history of her son having bladder cancer. Will send [facility] hereditary panel. Antineopla stic chemotherapy regimen 323725821 Z51.11 Week 1 5FU Leucovorin Vectibix on [...] with Vectibix on November 02, 2023. Hypokalemia 75733365 E87 .6 Patient returns on April 29, 2023. Potassium is low at 2.9. Will send prescripti on for potassium 20 mEq daily. Will follow-up labs again next week. Loss of appetite 6954978 6 R63.0 Patient has had nausea and decreased appetite since her cancer diagnosis. She can not tolerate her nutritiona l drinks. She does take Phenergan with relief. She continues to lose weight. Will send prescripti on for Megace. Acute conjunctivitis 537 84067 H10.32 Patient returns on May 11, 2023. She has had erythema, conjuntiva inflammati on, discharged and matted left eye. She has been using warm compresses . Will send prescripti on for eye drops for conjunctiv itis.Will send in repeat prescripti on for eye drops. Diarrhea 53105172 R19.7 Diarrhea has resolved. Patient with recent C diff Deep venou s thrombosis 452377054 I82.409 Patient developed right lower extremity pain and edema.Veno us duplex on May 28, 2023 with evidence of deep vein thrombosis . Started on Eliquis 5 mg 1 tab p.o. b.i.d.. Did not start with Eliquis starter pack due to recent bleeding. Patient had a DVT and a PE in 1990 after her hysterecto my. Anxiety 15213766 F41.9 Patient has had increased anxiety. She is tearful and crying during her visit today due to all of her health problems. She does not want to take an antidepres melina at this time. Discussed low-dose Ativan. Improvemen t in mood overall on visit from June 08, 2023. [id number] Addy Gonzales MD [facility] [address] [place] [address],[address] [place] [address] 11/03/2023 13:09:58 11/03/2023 14:02:01 Malignant tumor of ascending colon 373147263 C18.2 I have scheduled the patient for [...] as a part of this patient's care. [id number] Hanna Snider PA-C [facility] [address] [place] [address] 11/23/2023 09:05:54 11/23/2023 09:52:19 Malignant tumor of ascending colon 706579811 C18.2 CT scan of the abdomen and [...] 8.2 hematocrit 29.0. MCV 67.9. Platelet count 454916. Normal cell differenti al. Low serum folate [...] mg daily. Metastatic malignant neoplasm to liver 90946052 C78.7 CT scan of the abdomen and [...] Findings concerning for metastatic colon cancer. Nausea 489725086 R11.0 As needed Zofran and Phenergan prescribed . Pain due t o neoplastic disease 1289155996 9102 G89.3 Right upper quadrant pain secondary to liver metastasis . Patient currently taking Tylenol. Discussed as needed oxycodone to limit Tylenol exposure. Anemia 904944565 D64.9 Right-side d colon mass concerning for malignancy . Will assess for any signs of iron deficiency . Most recent hemoglobin at 8.0. Concern for blood loss from colon mass. Patient reports dark stools. Adopted 706211050 Z62.89 8 Patient is adopted and discussed hereditary gene panel. Patient does have family history of her son having bladder cancer. Will send [facility] hereditary panel. Antineopla stic chemotherapy regimen 134297531 Z51.11 Week 1 5FU Leucovorin Vectibix on [...] with Vectibix on November 23, 2023. Hypokalemia 86250802 E87 .6 Patient returns on April 29, 2023. Potassium is low at 2.9. Will send prescripti on for potassium 20 mEq daily. Will follow-up labs again next week. Loss of appetite 1272838 6 R63.0 Patient has had nausea and decreased appetite since her cancer diagnosis. She can not tolerate her nutritiona l drinks. She does take Phenergan with relief. She continues to lose weight. Will send prescripti on for Megace. Acute conjunctivitis 537 89367 H10.32 Patient returns on May 11, 2023. She has had erythema, conjuntiva inflammati on, discharged and matted left eye. She has been using warm compresses . Will send prescripti on for eye drops for conjunctiv itis.Will send in repeat prescripti on for eye drops. Diarrhea 47351642 R19.7 Diarrhea has resolved. Patient with recent C diff Deep venou s thrombosis 243636794 I82.409 Patient developed right lower extremity pain and edema.Veno us duplex on May 28, 2023 with evidence of deep vein thrombosis . Started on Eliquis 5 mg 1 tab p.o. b.i.d.. Did not start with Eliquis starter pack due to recent bleeding. Patient had a DVT and a PE in 1990 after her hysterecto my. Anxiety 24763330 F41.9 Patient has had increased anxiety. She is tearful and crying during her visit today due to all of her health problems. She does not want to take an antidepres melina at this time. Discussed low-dose Ativan. Improvemen t in mood overall on visit from June 08, 2023. Mixed anxi ety and depressive disorder 107591131 F41.8 Patient returns on November 23, 2023. [...] Mirtazapin e dose to 30 mg daily. [id number] Tomy King MD [facility] [address] [facility] [address] [place] [address] 12/07/2023 09:01:54 12/07/2023 09:40:34 Malignant tumor of ascending colon 289022240 C18.2 CT scan of the abdomen and [...] 8.2 hematocrit 29.0. MCV 67.9. Platelet count 288688. Normal cell differenti al. Low serum folate [...] 2 weeks. Metastatic malignant neoplasm to liver 11788386 C78.7 CT scan of the abdomen and [...] Findings concerning for metastatic colon cancer. Nausea 043583212 R11.0 As needed Zofran and Phenergan prescribed . Pain due t o neoplastic disease 1201915721 9102 G89.3 Right upper quadrant pain secondary to liver metastasis . Patient currently taking Tylenol. Discussed as needed oxycodone to limit Tylenol exposure. Anemia [id number] D64.9 Right-side d colon mass concerning for malignancy . Will assess for any signs of iron deficiency . Most recent hemoglobin at 8.0. Concern for blood loss from colon mass. Patient reports dark stools. Adopted [id number] Z62.89 8 Patient is adopted and discussed hereditary gene panel. Patient does have family history of her son having bladder cancer. Will send [facility] hereditary panel. Antineopla stic chemotherapy regimen 246476297 Z51.11 Week 1 5FU Leucovorin Vectibix on [...] with Vectibix on December 07, 2023. Hypokalemia 38057226 E87 .6 Patient returns on April 29, 2023. Potassium is low at 2.9. Will send prescripti on for potassium 20 mEq daily. Will follow-up labs again next week. Deep venou s thrombosis 936204927 I82.409 Patient developed right lower extremity pain and edema.Veno us duplex on May 28, 2023 with evidence of deep vein thrombosis . Started on Eliquis 5 mg 1 tab p.o. b.i.d.. Did not start with Eliquis starter pack due to recent bleeding. Patient had a DVT and a PE in 1990 after her hysterecto my. Mixed anxi ety and depressive disorder 745568974 F41.8 Patient returns on November 23, 2023. [...] to 30 mg daily. Atopic conjunctivitis 23 3716983 H10.12 Patient with conjunctiv itis of the left eye. Holding Vectibix today on December 07, 2023. Continue with current therapy. Will follow up again in 2 weeks. [id number] Hanna Snider PA-C [facility] [address] [facility] [address] [place] [address] 12/21/2023 09:48:25 12/21/2023 10:21:03 Malignant tumor of ascending colon 707433963 C18.2 CT scan of the abdomen and [...] 8.2 hematocrit 29.0. MCV 67.9. Platelet count 572431. Normal cell differenti al. Low serum folate [...] 2 weeks. Metastatic malignant neoplasm to liver 12320450 C78.7 CT scan of the abdomen and [...] Findings concerning for metastatic colon cancer. Nausea 764436953 R11.0 As needed Zofran and Phenergan prescribed . Pain due t o neoplastic disease [id number] 9102 G89.3 Right upper quadrant pain secondary to liver metastasis . Patient currently taking Tylenol. Discussed as needed oxycodone to limit Tylenol exposure. Anemia 671633898 D64.9 Right-side d colon mass concerning for malignancy . Will assess for any signs of iron deficiency . Most recent hemoglobin at 8.0. Concern for blood loss from colon mass. Patient reports dark stools. Adopted [id number] Z62.89 8 Patient is adopted and discussed hereditary gene panel. Patient does have family history of her son having bladder cancer. Will send [facility] hereditary panel. Antineopla stic chemotherapy regimen 225895531 Z51.11 Week 1 5FU Leucovorin Vectibix on [...] with Vectibix on November 21, 2023. Hypokalemia 00702871 E87 .6 Patient returns on April 29, 2023. Potassium is low at 2.9. Will send prescripti on for potassium 20 mEq daily. Will follow-up labs again next week. Deep venou s thrombosis 116018070 I82.409 Patient developed right lower extremity pain and edema.Veno us duplex on May 28, 2023 with evidence of deep vein thrombosis . Started on Eliquis 5 mg 1 tab p.o. b.i.d.. Did not start with Eliquis starter pack due to recent bleeding. Patient had a DVT and a PE in 1990 after her hysterecto my. Mixed anxi ety and depressive disorder 631497370 F41.8 Patient returns on November 23, 2023. [...] to 30 mg daily. Atopic conjunctivitis 23 2141331 H10.12 Patient with conjunctiv itis of the left eye. Held Vectibix on December 07, 2023. Continue with current therapy. Will follow up again in 2 weeks. [id number] Hanna Snider PA-C [facility] [address] [place] [address] 01/04/2024 09:55:59 01/04/2024 10:32:04 Malignant tumor of ascending colon 489898541 C18.2 CT scan of the abdomen and [...] 8.2 hematocrit 29.0. MCV 67.9. Platelet count 484200. Normal cell differenti al. Low serum folate [...] January 2024. Metastatic malignant neoplasm to liver 70541742 C78.7 CT scan of the abdomen and [...] Findings concerning for metastatic colon cancer. Nausea 647323329 R11.0 As needed Zofran and Phenergan prescribed . Pain due t o neoplastic disease 9175708616 9102 G89.3 Right upper quadrant pain secondary to liver metastasis . Patient currently taking Tylenol. Discussed as needed oxycodone to limit Tylenol exposure. Anemia 596031795 D64.9 Right-side d colon mass concerning for malignancy . Will assess for any signs of iron deficiency . Most recent hemoglobin at 8.0. Concern for blood loss from colon mass. Patient reports dark stools. Adopted 341692591 Z62.89 8 Patient is adopted and discussed hereditary gene panel. Patient does have family history of her son having bladder cancer. Will send [facility] hereditary panel. Antineopla stic chemotherapy regimen 729142752 Z51.11 Week 1 5FU Leucovorin Vectibix on [...] without Vectibix on January 04, 2024. Hypokalemia 56048184 E87 .6 Patient returns on April 29, 2023. Potassium is low at 2.9. Will send prescripti on for potassium 20 mEq daily. Will follow-up labs again next week. Deep venou s thrombosis 804941234 I82.409 Patient developed right lower extremity pain and edema.Veno us duplex on May 28, 2023 with evidence of deep vein thrombosis . Started on Eliquis 5 mg 1 tab p.o. b.i.d.. Did not start with Eliquis starter pack due to recent bleeding. Patient had a DVT and a PE in 1990 after her hysterecto my. Mixed anxi ety and depressive disorder 316165660 F41.8 Patient returns on November 23, 2023. [...] to 30 mg daily. Atopic conjunctivitis 23 0369223 H10.12 Patient with conjunctiv itis of the left eye. Held Vectibix on December 07, 2023. Continue with current therapy. Will follow up again in 2 weeks. Iron defic iency anemia 91236299 D50.9 [id number] Hanna Snider PA-C [facility] [address] [place] [address] 01/25/2024 09:42:09 01/25/2024 10:49:14 Malignant tumor of ascending colon 794671078 C18.2 CT scan of the abdomen and [...] 8.2 hematocrit 29.0. MCV 67.9. Platelet count 601494. Normal cell differenti al. Low serum folate [...] Will schedule. Metastatic malignant neoplasm to liver 86308540 C78.7 CT scan of the abdomen and [...] Findings concerning for metastatic colon cancer. Nausea 313604702 R11.0 As needed Zofran and Phenergan prescribed . Pain due t o neoplastic disease 1325864494 9102 G89.3 Right upper quadrant pain secondary to liver metastasis . Patient currently taking Tylenol. Discussed as needed oxycodone to limit Tylenol exposure. Anemia 942410199 D64.9 Right-side d colon mass concerning for malignancy . Will assess for any signs of iron deficiency . Most recent hemoglobin at 8.0. Concern for blood loss from colon mass. Patient reports dark stools. Adopted 285091880 Z62.89 8 Patient is adopted and discussed hereditary gene panel. Patient does have family history of her son having bladder cancer. Will send [facility] hereditary panel. Antineopla stic chemotherapy regimen 691153640 Z51.11 Week 1 5FU Leucovorin Vectibix on [...] with Vectibix on January 25, 2024. Hypokalemia 87445473 E87 .6 Patient returns on April 29, 2023. Potassium is low at 2.9. Will send prescripti on for potassium 20 mEq daily. Will follow-up labs again next week. Deep venou s thrombosis 952495068 I82.409 Patient developed right lower extremity pain and edema.Veno us duplex on May 28, 2023 with evidence of deep vein thrombosis . Started on Eliquis 5 mg 1 tab p.o. b.i.d.. Did not start with Eliquis starter pack due to recent bleeding. Patient had a DVT and a PE in 1990 after her hysterecto my. Mixed anxi ety and depressive disorder 484548874 F41.8 Patient returns on November 23, 2023. [...] to 30 mg daily. Atopic conjunctivitis 23 8752393 H10.12 Patient with conjunctiv itis of the left eye. Held Vectibix on December 07, 2023. Continue with current therapy. Will follow up again in 2 weeks. Iron defic iency anemia 39678858 D50.9 [id number] Hanna Snider PA-C [facility] [address] [place] [address] 02/08/2024 09:30:04 02/08/2024 10:49:29 Malignant tumor of ascending colon 603112280 C18.2 CT scan of the abdomen and [...] 8.2 hematocrit 29.0. MCV 67.9. Platelet count 835034. Normal cell differenti al. Low serum folate [...] follow-up imaging. Metastatic malignant neoplasm to liver 08203964 C78.7 CT scan of the abdomen and [...] Findings concerning for metastatic colon cancer. Nausea 050795561 R11.0 As needed Zofran and Phenergan prescribed . Pain due t o neoplastic disease 4100113400 9102 G89.3 Right upper quadrant pain secondary to liver metastasis . Patient currently taking Tylenol. Discussed as needed oxycodone to limit Tylenol exposure. Anemia 852580337 D64.9 Right-side d colon mass concerning for malignancy . Will assess for any signs of iron deficiency . Most recent hemoglobin at 8.0. Concern for blood loss from colon mass. Patient reports dark stools. Adopted 375794600 Z62.89 8 Patient is adopted and discussed hereditary gene panel. Patient does have family history of her son having bladder cancer. Will send [facility] hereditary panel. Antineopla stic chemotherapy regimen 470934631 Z51.11 Week 1 5FU Leucovorin Vectibix on [...] without Vectibix on February 08, 2024. Hypokalemia 07258981 E87 .6 Patient returns on April 29, 2023. Potassium is low at 2.9. Will send prescripti on for potassium 20 mEq daily. Will follow-up labs again next week. Deep venou s thrombosis 986320338 I82.409 Patient developed right lower extremity pain and edema.Veno us duplex on May 28, 2023 with evidence of deep vein thrombosis . Started on Eliquis 5 mg 1 tab p.o. b.i.d.. Did not start with Eliquis starter pack due to recent bleeding. Patient had a DVT and a PE in 1990 after her hysterecto my. Mixed anxi ety and depressive disorder 400271922 F41.8 Patient returns on November 23, 2023. [...] to 30 mg daily. Atopic conjunctivitis 23 9555445 H10.12 Patient with conjunctiv itis of the left eye. Held Vectibix on December 07, 2023. Continue with current therapy. Will follow up again in 2 weeks. Iron defic iency anemia 32417768 D50.9 Will follow up labs Insomnia 186756644 G47.0 0 Patient returns on February 08, 2024. She has had difficulty sleeping for most of her life. She has tried multiple medication s without relief. She is tried Mirtazapin e and lorazepam without improvemen t of insomnia. Discussed trying trazodone instead. Will send prescripti on. Will send prescripti on for Requip for restless legs. Restless legs 16673021 G 25.81 Patient returns on February 08, 2024. She has had difficulty sleeping for most of her life. She has tried multiple medication s without relief. She is tried Mirtazapin e and lorazepam without improvemen t of insomnia. Discussed trying trazodone instead. Will send prescripti on. Will send prescripti on for Requip for restless legs. [id number] Hanna Snider PA-C [facility] [address] [place] [address] 02/22/2024 10:08:45 02/22/2024 10:41:02 Malignant tumor of ascending colon 732729587 C18.2 CT scan of the abdomen and [...] 8.2 hematocrit 29.0. MCV 67.9. Platelet count 302839. Normal cell differenti al. Low serum folate [...] 15, 2024. Metastatic malignant neoplasm to liver 85940962 C78.7 CT scan of the abdomen and [...] Findings concerning for metastatic colon cancer. Nausea 184296622 R11.0 As needed Zofran and Phenergan prescribed . Pain due t o neoplastic disease 6506109692 9102 G89.3 Right upper quadrant pain secondary to liver metastasis . Patient currently taking Tylenol. Discussed as needed oxycodone to limit Tylenol exposure. Anemia 470407589 D64.9 Right-side d colon mass concerning for malignancy . Will assess for any signs of iron deficiency . Most recent hemoglobin at 8.0. Concern for blood loss from colon mass. Patient reports dark stools. Adopted 673053749 Z62.89 8 Patient is adopted and discussed hereditary gene panel. Patient does have family history of her son having bladder cancer. Will send [facility] hereditary panel. Antineopla stic chemotherapy regimen 112642534 Z51.11 Week 1 5FU Leucovorin Vectibix on [...] with Vectibix on February 22, 2024. Hypokalemia 91424908 E87 .6 Patient returns on April 29, 2023. Potassium is low at 2.9. Will send prescripti on for potassium 20 mEq daily. Will follow-up labs again next week. Deep venou s thrombosis 263479552 I82.409 Patient developed right lower extremity pain and edema.Veno us duplex on May 28, 2023 with evidence of deep vein thrombosis . Started on Eliquis 5 mg 1 tab p.o. b.i.d.. Did not start with Eliquis starter pack due to recent bleeding. Patient had a DVT and a PE in 1990 after her hysterecto my. Mixed anxi ety and depressive disorder 827789113 F41.8 Patient returns on November 23, 2023. [...] to 30 mg daily. Atopic conjunctivitis 23 0060786 H10.12 Patient with conjunctiv itis of the left eye. Held Vectibix on December 07, 2023. Continue with current therapy. Will follow up again in 2 weeks. Iron defic iency anemia 23572720 D50.9 Will follow up labs Insomnia 074071823 G47.0 0 Patient returns on February 08, 2024. She has had difficulty sleeping for most of her life. She has tried multiple medication s without relief. She is tried Mirtazapin e and lorazepam without improvemen t of insomnia. Discussed trying trazodone instead. Will send prescripti on. Will send prescripti on for Requip for restless legs. Restless legs 79644490 G 25.81 Patient returns on February 08, 2024. She has had difficulty sleeping for most of her life. She has tried multiple medication s without relief. She is tried Mirtazapin e and lorazepam without improvemen t of insomnia. Discussed trying trazodone instead. Will send prescripti on. Will send prescripti on for Requip for restless legs. Infection of skin and/or subcutaneous tissue 32844074 L08.9 Patient returns on February 22, 2024. Patient has paronychia of the left ring finger after pulling a piece of loose skin yesterday. No abscess or drainage present. Discussed topical antibiotic s plus warm water soaks. Will send prescripti on. Discussed if does not improve or worsens will do oral antibiotic s. Will follow-up. [id number] Hanna Snider PA-C [facility] [address] [place] [address] 03/07/2024 10:12:33 03/07/2024 11:14:04 Malignant tumor of ascending colon 466275605 C18.2 CT scan of the abdomen and [...] 8.2 hematocrit 29.0. MCV 67.9. Platelet count 558230. Normal cell differenti al. Low serum folate [...] 15, 2024. Metastatic malignant neoplasm to liver 95297946 C78.7 CT scan of the abdomen and [...] Findings concerning for metastatic colon cancer. Nausea 959909403 R11.0 As needed Zofran and Phenergan prescribed . Pain due t o neoplastic disease 2502550049 9102 G89.3 Right upper quadrant pain secondary to liver metastasis . Patient currently taking Tylenol. Discussed as needed oxycodone to limit Tylenol exposure. Anemia 416565823 D64.9 Right-side d colon mass concerning for malignancy . Will assess for any signs of iron deficiency . Most recent hemoglobin at 8.0. Concern for blood loss from colon mass. Patient reports dark stools. Adopted 902601398 Z62.89 8 Patient is adopted and discussed hereditary gene panel. Patient does have family history of her son having bladder cancer. Will send [facility] hereditary panel. Antineopla stic chemotherapy regimen 856693437 Z51.11 Week 1 5FU Leucovorin Vectibix on [...] with Vectibix on March 07, 2024. Hypokalemia 09838317 E87 .6 Patient returns on April 29, 2023. Potassium is low at 2.9. Will send prescripti on for potassium 20 mEq daily. Will follow-up labs again next week. Deep venou s thrombosis 283618267 I82.409 Patient developed right lower extremity pain and edema.Veno us duplex on May 28, 2023 with evidence of deep vein thrombosis . Started on Eliquis 5 mg 1 tab p.o. b.i.d.. Did not start with Eliquis starter pack due to recent bleeding. Patient had a DVT and a PE in 1990 after her hysterecto my. Mixed anxi ety and depressive disorder 165591539 F41.8 Patient returns on November 23, 2023. [...] to 30 mg daily. Atopic conjunctivitis 23 4927355 H10.12 Patient with conjunctiv itis of the left eye. Held Vectibix on December 07, 2023. Continue with current therapy. Will follow up again in 2 weeks. Iron defic iency anemia 28172639 D50.9 Will follow up labs Insomnia 053513127 G47.0 0 Patient returns on February 08, 2024. She has had difficulty sleeping for most of her life. She has tried multiple medication s without relief. She is tried Mirtazapin e and lorazepam without improvemen t of insomnia. Discussed trying trazodone instead. Will send prescripti on. Will send prescripti on for Requip for restless legs. Restless legs 04781184 G 25.81 Patient returns on February 08, 2024. She has had difficulty sleeping for most of her life. She has tried multiple medication s without relief. She is tried Mirtazapin e and lorazepam without improvemen t of insomnia. Discussed trying trazodone instead. Will send prescripti on. Will send prescripti on for Requip for restless legs. Infection of skin and/or subcutaneous tissue 28728868 L08.9 Patient returns on February 22, 2024. Patient has paronychia of the left ring finger after pulling a piece of loose skin yesterday. No abscess or drainage present. Discussed topical antibiotic s plus warm water soaks. Will send prescripti on. Discussed if does not improve or worsens will do oral antibiotic s. Will follow-up. This has resolved. [id number] Hanna Snider PA-C [facility] [address] [place] [address] 03/21/2024 09:44:36 03/21/2024 10:52:41 Malignant tumor of ascending colon 475608622 C18.2 CT scan of the abdomen and [...] 8.2 hematocrit 29.0. MCV 67.9. Platelet count 285962. Normal cell differenti al. Low serum folate [...] current therapy. Metastatic malignant neoplasm to liver 06160668 C78.7 CT scan of the abdomen and [...] Findings concerning for metastatic colon cancer. Nausea 763381660 R11.0 As needed Zofran and Phenergan prescribed . Pain due t o neoplastic disease 7443377351 9102 G89.3 Right upper quadrant pain secondary to liver metastasis . Patient currently taking Tylenol. Discussed as needed oxycodone to limit Tylenol exposure. Anemia 787036236 D64.9 Right-side d colon mass concerning for malignancy . Will assess for any signs of iron deficiency . Most recent hemoglobin at 8.0. Concern for blood loss from colon mass. Patient reports dark stools. Adopted 092138794 Z62.89 8 Patient is adopted and discussed hereditary gene panel. Patient does have family history of her son having bladder cancer. Will send [facility] hereditary panel. Antineopla stic chemotherapy regimen 281773981 Z51.11 Week 1 5FU Leucovorin Vectibix on [...] with Vectibix on March 21, 2024. Hypokalemia 95369073 E87 .6 Patient returns on April 29, 2023. Potassium is low at 2.9. Will send prescripti on for potassium 20 mEq daily. Will follow-up labs again next week. Deep venou s thrombosis 537218682 I82.409 Patient developed right lower extremity pain and edema.Veno us duplex on May 28, 2023 with evidence of deep vein thrombosis . Started on Eliquis 5 mg 1 tab p.o. b.i.d.. Did not start with Eliquis starter pack due to recent bleeding. Patient had a DVT and a PE in 1990 after her hysterecto my. Mixed anxi ety and depressive disorder 915301587 F41.8 Patient returns on November 23, 2023. [...] to 30 mg daily. Atopic conjunctivitis 23 1352356 H10.12 Patient with conjunctiv itis of the left eye. Held Vectibix on December 07, 2023. Continue with current therapy. Will follow up again in 2 weeks. Iron defic iency anemia 56919462 D50.9 Will follow up labs Insomnia 067933945 G47.0 0 Patient returns on February 08, 2024. She has had difficulty sleeping for most of her life. She has tried multiple medication s without relief. She is tried Mirtazapin e and lorazepam without improvemen t of insomnia. Discussed trying trazodone instead. Will send prescripti on. Will send prescripti on for Requip for restless legs. Restless legs 80093000 G 25.81 Patient returns on February 08, 2024. She has had difficulty sleeping for most of her life. She has tried multiple medication s without relief. She is tried Mirtazapin e and lorazepam without improvemen t of insomnia. Discussed trying trazodone instead. Prescripti on sent for Requip for restless legs. [id number] Hanna Snider PA-C [facility] [address] [place] [address] 04/04/2024 09:54:49 04/04/2024 10:42:05 Malignant tumor of ascending colon 411778255 C18.2 CT scan of the abdomen and [...] 8.2 hematocrit 29.0. MCV 67.9. Platelet count 613956. Normal cell differenti al. Low serum folate [...] current therapy. Metastatic malignant neoplasm to liver 77626470 C78.7 CT scan of the abdomen and [...] Findings concerning for metastatic colon cancer. Nausea 229110552 R11.0 As needed Zofran and Phenergan prescribed . Pain due t o neoplastic disease 1815694843 9102 G89.3 Right upper quadrant pain secondary to liver metastasis . Patient currently taking Tylenol. Discussed as needed oxycodone to limit Tylenol exposure. Anemia 900105824 D64.9 Right-side d colon mass concerning for malignancy . Will assess for any signs of iron deficiency . Most recent hemoglobin at 8.0. Concern for blood loss from colon mass. Patient reports dark stools. Adopted 731803873 Z62.89 8 Patient is adopted and discussed hereditary gene panel. Patient does have family history of her son having bladder cancer. Will send [facility] hereditary panel. Antineopla stic chemotherapy regimen 301443195 Z51.11 Week 1 5FU Leucovorin Vectibix on [...] without Vectibix on April 04, 2024. Hypokalemia 98144523 E87 .6 Patient returns on April 29, 2023. Potassium is low at 2.9. Will send prescripti on for potassium 20 mEq daily. Will follow-up labs again next week. Deep venou s thrombosis 593099407 I82.409 Patient developed right lower extremity pain and edema.Veno us duplex on May 28, 2023 with evidence of deep vein thrombosis . Started on Eliquis 5 mg 1 tab p.o. b.i.d.. Did not start with Eliquis starter pack due to recent bleeding. Patient had a DVT and a PE in 1990 after her hysterecto my. Mixed anxi ety and depressive disorder 961652985 F41.8 Patient returns on November 23, 2023. [...] prescripti on for Cymbalta. Atopic conjunctivitis 23 2674166 H10.12 Patient with conjunctiv itis of the left eye. Held Vectibix on December 07, 2023. Continue with current therapy. Will follow up again in 2 weeks. Iron defic iency anemia 38503467 D50.9 Will follow up labs Insomnia 149035967 G47.0 0 Patient returns on February 08, 2024. She has had difficulty sleeping for most of her life. She has tried multiple medication s without relief. She is tried Mirtazapin e and lorazepam without improvemen t of insomnia. Discussed trying trazodone instead. Will send prescripti on. Will send prescripti on for Requip for restless legs. Restless legs 09284467 G 25.81 Patient returns on February 08, [...] also send prescripti on for fluconazol e. [id number] Hanna Snider PA-C [facility] [address] [place] [address] 04/18/2024 09:51:34 04/18/2024 11:21:47 Malignant tumor of ascending colon 789875096 C18.2 CT scan of the abdomen and [...] 8.2 hematocrit 29.0. MCV 67.9. Platelet count 700201. Normal cell differenti al. Low serum folate [...] current therapy. Metastatic malignant neoplasm to liver 69049095 C78.7 CT scan of the abdomen and [...] Findings concerning for metastatic colon cancer. Nausea 456739349 R11.0 As needed Zofran and Phenergan prescribed . Pain due t o neoplastic disease 9854314486 9102 G89.3 Right upper quadrant pain secondary to liver metastasis . Patient currently taking Tylenol. Discussed as needed oxycodone to limit Tylenol exposure. Anemia 818583550 D64.9 Right-side d colon mass concerning for malignancy . Will assess for any signs of iron deficiency . Most recent hemoglobin at 8.0. Concern for blood loss from colon mass. Patient reports dark stools. Adopted [id number] Z62.89 8 Patient is adopted and discussed hereditary gene panel. Patient does have family history of her son having bladder cancer. Will send [facility] hereditary panel. Antineopla stic chemotherapy regimen [id number] Z51.11 Week 1 5FU Leucovorin Vectibix on [...] without Vectibix on April 18, 2024. Hypokalemia 73881501 E87 .6 Patient returns on April 29, 2023. Potassium is low at 2.9. Will send prescripti on for potassium 20 mEq daily. Will follow-up labs again next week. Deep venou s thrombosis 912330584 I82.409 Patient developed right lower extremity pain and edema.Veno us duplex on May 28, 2023 with evidence of deep vein thrombosis . Started on Eliquis 5 mg 1 tab p.o. b.i.d.. Did not start with Eliquis starter pack due to recent bleeding. Patient had a DVT and a PE in 1990 after her hysterecto my. Mixed anxi ety and depressive disorder 601123073 F41.8 Patient returns on November 23, 2023. [...] prescripti on for Cymbalta. Atopic conjunctivitis 23 6680990 H10.12 Patient with conjunctiv itis of the left eye. Held Vectibix on December 07, 2023. Continue with current therapy. Will follow up again in 2 weeks. Iron defic iency anemia 42288620 D50.9 Will follow up labs Insomnia 523890996 G47.0 0 Patient returns on February 08, 2024. She has had difficulty sleeping for most of her life. She has tried multiple medication s without relief. She is tried Mirtazapin e and lorazepam without improvemen t of insomnia. Discussed trying trazodone instead. Will send prescripti on. Will send prescripti on for Requip for restless legs. Restless legs 46150740 G 25.81 Patient returns on February 08, [...] also send prescripti on for fluconazol e. [id number] Hanna Snider PA-C [facility] [address] [place] [address] 05/02/2024 09:52:10 05/02/2024 10:44:11 Malignant tumor of ascending colon 531173791 C18.2 CT scan of the abdomen and [...] 8.2 hematocrit 29.0. MCV 67.9. Platelet count 147749. Normal cell differenti al. Low serum folate [...] nausea patient was taken for right hemicolect halye and anastomosi s on April 06, 2023.Patho [...] current therapy. Metastatic malignant neoplasm to liver 78447769 C78.7 CT scan of the abdomen and [...] Findings concerning for metastatic colon cancer. Nausea 579367159 R11.0 As needed Zofran and Phenergan prescribed . Pain due t o neoplastic disease [id number] 9102 G89.3 Right upper quadrant pain secondary to liver metastasis . Patient currently taking Tylenol. Discussed as needed oxycodone to limit Tylenol exposure. Anemia 711048798 D64.9 Right-side d colon mass concerning for malignancy . Will assess for any signs of iron deficiency . Most recent hemoglobin at 8.0. Concern for blood loss from colon mass. Patient reports dark stools. Adopted 009118359 Z62.89 8 Patient is adopted and discussed hereditary gene panel. Patient does have family history of her son having bladder cancer. Will send [facility] hereditary panel. Antineopla stic chemotherapy regimen 363406309 Z51.11 Week 1 5FU Leucovorin Vectibix on [...] without Vectibix on May 02, 2024. Hypokalemia 43672975 E87 .6 Patient returns on April 29, 2023. Potassium is low at 2.9. Will send prescripti on for potassium 20 mEq daily. Will follow-up labs again next week. Deep venou s thrombosis 756555041 I82.409 Patient developed right lower extremity pain and edema.Veno us duplex on May 28, 2023 with evidence of deep vein thrombosis . Started on Eliquis 5 mg 1 tab p.o. b.i.d.. Did not start with Eliquis starter pack due to recent bleeding. Patient had a DVT and a PE in 1990 after her hysterecto my. Mixed anxi ety and depressive disorder 712186484 F41.8 Patient returns on November 23, 2023. [...] prescripti on for Cymbalta. Atopic conjunctivitis 23 6258410 H10.12 Patient with conjunctiv itis of the left eye. Held Vectibix on December 07, 2023. Continue with current therapy. Will follow up again in 2 weeks. Iron defic iency anemia 51426573 D50.9 Will follow up labs Insomnia 453619431 G47.0 0 Patient returns on February 08, 2024. She has had difficulty sleeping for most of her life. She has tried multiple medication s without relief. She is tried Mirtazapin e and lorazepam without improvemen t of insomnia. Discussed trying trazodone instead. Will send prescripti on. Will send prescripti on for Requip for restless legs. Restless legs 13025965 G 25.81 Patient returns on February 08, [...] and took Diflucan tablet. Rash has resolved. [id number] Tomy King MD [facility] [address] [facility] [address] [place] [address] 05/16/2024 10:11:10 05/16/2024 10:33:39 Malignant tumor of ascending colon 204428403 C18.2 CT scan of the abdomen and [...] 8.2 hematocrit 29.0. MCV 67.9. Platelet count 689555. Normal cell differenti al. Low serum folate [...] 16, 2024. Metastatic malignant neoplasm to liver 10223042 C78.7 CT scan of the abdomen and [...] Findings concerning for metastatic colon cancer. Nausea 824287949 R11.0 As needed Zofran and Phenergan prescribed . Pain due t o neoplastic disease [id number] 9102 G89.3 Right upper quadrant pain secondary to liver metastasis . Patient currently taking Tylenol. Discussed as needed oxycodone to limit Tylenol exposure. Anemia 926768435 D64.9 Right-side d colon mass concerning for malignancy . Will assess for any signs of iron deficiency . Most recent hemoglobin at 8.0. Concern for blood loss from colon mass. Patient reports dark stools. Adopted 242149735 Z62.89 8 Patient is adopted and discussed hereditary gene panel. Patient does have family history of her son having bladder cancer. Will send [facility] hereditary panel. Antineopla stic chemotherapy regimen 920543020 Z51.11 Week 1 5FU Leucovorin Vectibix on [...] on May 16, 2024. Vectibix resumed. Hypokalemia 96254316 E87 .6 Patient returns on April 29, 2023. Potassium is low at 2.9. Will send prescripti on for potassium 20 mEq daily. Will follow-up labs again next week. Deep venou s thrombosis 947102891 I82.409 Patient developed right lower extremity pain [...] duplex. Mixed anxi ety and depressive disorder 816511728 F41.8 Patient returns on November 23, 2023. [...] prescripti on for Cymbalta. Atopic conjunctivitis 23 7592304 H10.12 Patient with conjunctiv itis of the left eye. Held Vectibix on December 07, 2023. Continue with current therapy. Will follow up again in 2 weeks. Iron defic iency anemia 52750612 D50.9 Will follow up labs Insomnia 500619117 G47.0 0 Patient returns on February 08, 2024. She has had difficulty sleeping for most of her life. She has tried multiple medication s without relief. She is tried Mirtazapin e and lorazepam without improvemen t of insomnia. Discussed trying trazodone instead. Will send prescripti on. Will send prescripti on for Requip for restless legs. Restless legs 93900167 G 25.81 Patient returns on February 08, 2024. She has had difficulty sleeping for most of her life. She has tried multiple medication s without relief. She is tried Mirtazapin e and lorazepam without improvemen t of insomnia. Discussed trying trazodone instead. Prescripti on sent for Requip for restless legs. [id number] Hanna Snider PA-C [facility] [address] [place] [address] 05/30/2024 09:21:34 05/30/2024 11:05:52 Malignant tumor of ascending colon 330542724 C18.2 CT scan of the abdomen and [...] 8.2 hematocrit 29.0. MCV 67.9. Platelet count 853922. Normal cell differenti al. Low serum folate [...] up labs. Metastatic malignant neoplasm to liver 67442498 C78.7 CT scan of the abdomen and [...] Findings concerning for metastatic colon cancer. Nausea 358062021 R11.0 As needed Zofran and Phenergan prescribed . Patient returns on May 30, 2024. Patient has had intermitte nt nausea that occurs randomly. Will try scopolamin e patches. Pain due t o neoplastic disease 3000390742 9102 G89.3 Right upper quadrant pain secondary to liver metastasis . Patient currently taking Tylenol. Discussed as needed oxycodone to limit Tylenol exposure. Anemia 900649396 D64.9 Right-side d colon mass concerning for malignancy . Will assess for any signs of iron deficiency . Most recent hemoglobin at 8.0. Concern for blood loss from colon mass. Patient reports dark stools. Adopted 726680168 Z62.89 8 Patient is adopted and discussed hereditary gene panel. Patient does have family history of her son having bladder cancer. Will send [facility] hereditary panel. Antineopla stic chemotherapy regimen 815160012 Z51.11 Week 1 5FU Leucovorin Vectibix on [...] 2024. Patient will receive Vectibix today. Hypokalemia 50553195 E87 .6 Patient returns on April 29, 2023. Potassium is low at 2.9. Will send prescripti on for potassium 20 mEq daily. Will follow-up labs again next week. Deep venou s thrombosis 228928479 I82.409 Patient developed right lower extremity pain [...] duplex. Mixed anxi ety and depressive disorder 776897914 F41.8 Patient returns on November 23, 2023. [...] prescripti on for Cymbalta. Atopic conjunctivitis 23 3020350 H10.12 Patient with conjunctiv itis of the left eye. Held Vectibix on December 07, 2023. Continue with current therapy. Will follow up again in 2 weeks. Iron defic iency anemia 65214277 D50.9 Will follow up labs Insomnia 194586342 G47.0 0 Patient returns on February 08, 2024. She has had difficulty sleeping for most of her life. She has tried multiple medication s without relief. She is tried Mirtazapin e and lorazepam without improvemen t of insomnia. Discussed trying trazodone instead. Will send prescripti on. Will send prescripti on for Requip for restless legs. Restless legs 68432028 G 25.81 Patient returns on February 08, [...] the area dry. Will follow-up. Generalized rash 4375706 06 R21 Patient returns on May 30, [...] to keep the area dry. Will follow-up. [id number] Hanna Snider PA-C [facility] [address] [place] [address] 06/27/2024 09:58:37 06/27/2024 10:53:58 Malignant tumor of ascending colon 609116181 C18.2 CT scan of the abdomen and [...] 8.2 hematocrit 29.0. MCV 67.9. Platelet count 139404. Normal cell differenti al. Low serum folate [...] is following with the Coumadin clinic at [facility]. She is scheduled for cardiac MRI. [...] up labs. Metastatic malignant neoplasm to liver 98551329 C78.7 CT scan of the abdomen and [...] Findings concerning for metastatic colon cancer. Nausea 116531247 R11.0 As needed Zofran and Phenergan prescribed . Discussed trying scopolamin e patches but her insurance wouldn't cover. Pain due t o neoplastic disease 4219910241 9102 G89.3 Right upper quadrant pain secondary to liver metastasis . Patient currently taking Tylenol. Discussed as needed oxycodone to limit Tylenol exposure. Anemia 926032673 D64.9 Right-side d colon mass concerning for malignancy . Will assess for any signs of iron deficiency . Most recent hemoglobin at 8.0. Concern for blood loss from colon mass. Patient reports dark stools. Adopted 972174154 Z62.89 8 Patient is adopted and discussed hereditary gene panel. Patient does have family history of her son having bladder cancer. Will send [facility] hereditary panel. Antineopla stic chemotherapy regimen 270429607 Z51.11 Week 1 5FU Leucovorin Vectibix on [...] Patient will receive not Vectibix today. Hypokalemia 29020001 E87 .6 Patient returns on April 29, 2023. Potassium is low at 2.9. Will send prescripti on for potassium 20 mEq daily. Will follow-up labs again next week. Deep venou s thrombosis 636855062 I82.409 Patient developed right lower extremity pain [...] duplex. Mixed anxi ety and depressive disorder 486811920 F41.8 Patient returns on November 23, 2023. [...] prescripti on for Cymbalta. Atopic conjunctivitis 23 6367501 H10.12 Patient with conjunctiv itis of the left eye. Held Vectibix on December 07, 2023. Continue with current therapy. Will follow up again in 2 weeks. Iron defic iency anemia 42381220 D50.9 Will follow up labs Insomnia 411367119 G47.0 0 Patient returns on February 08, 2024. She has had difficulty sleeping for most of her life. She has tried multiple medication s without relief. She is tried Mirtazapin e and lorazepam without improvemen t of insomnia. Discussed trying trazodone instead. Will send prescripti on. Will send prescripti on for Requip for restless legs. Restless legs 48058123 G 25.81 Patient returns on February 08, [...] patient has not received Vectibix. Generalized rash 6659192 06 R21 Patient returns on May 30, [...] is following with the Coumadin clinic at [facility]. Congestive heart failure 78515679 I50.9 Patient returns on June 27, 2024. Since previous visit patient has been diagnosed with congestive heart failure and atrial fibrillati on. She has started lasix and is following with a cardiologi . [id number] Hanna Snider PA-C [facility] [address] [place] [address] 07/11/2024 09:55:48 07/11/2024 10:53:23 Malignant tumor of ascending colon 280761375 C18.2 CT scan of the abdomen and [...] 8.2 hematocrit 29.0. MCV 67.9. Platelet count 559381. Normal cell differenti al. Low serum folate [...] up labs. Metastatic malignant neoplasm to liver 46124105 C78.7 CT scan of the abdomen and [...] Findings concerning for metastatic colon cancer. Nausea 190903085 R11.0 As needed Zofran and Phenergan prescribed . Discussed trying scopolamin e patches but her insurance wouldn't cover. She is taking Zofran with relief. Pain due t o neoplastic disease 7406833032 9102 G89.3 She is taking hydrocodon e 7.5 mg b.i.d. Discussed taking medication every 4-6 hours as needed. Anemia 420565267 D64.9 Right-side d colon mass concerning for malignancy . Will assess for any signs of iron deficiency . Most recent hemoglobin at 8.0. Concern for blood loss from colon mass. Patient reports dark stools. Adopted 140651788 Z62.89 8 Patient is adopted and discussed hereditary gene panel. Patient does have family history of her son having bladder cancer. Will send [facility] hereditary panel. Antineopla stic chemotherapy regimen 809827219 Z51.11 Week 1 5FU Leucovorin Vectibix on [...] 2024. Patient will receive Vectibix today. Hypokalemia 41152356 E87 .6 Patient returns on April 29, 2023. Potassium is low at 2.9. Will send prescripti on for potassium 20 mEq daily. Will follow-up labs again next week. Deep venou s thrombosis 911984994 I82.409 Patient developed right lower extremity pain [...] duplex. Mixed anxi ety and depressive disorder 783449263 F41.8 Patient returns on November 23, 2023. [...] prescripti on for Cymbalta. Atopic conjunctivitis 23 7606182 H10.12 Patient with conjunctiv itis of the left eye. Held Vectibix on December 07, 2023. Continue with current therapy. Will follow up again in 2 weeks. Iron defic iency anemia 82934649 D50.9 Will follow up labs Insomnia 351103743 G47.0 0 Patient returns on February 08, 2024. She has had difficulty sleeping for most of her life. She has tried multiple medication s without relief. She is tried Mirtazapin e and lorazepam without improvemen t of insomnia. Discussed trying trazodone instead. Will send prescripti on. Will send prescripti on for Requip for restless legs. Restless legs 50229113 G 25.81 Patient returns on February 08, [...] patient has not received Vectibix. Generalized rash 8694830 06 R21 Patient returns on May 30, [...] is following with the Coumadin clinic at [facility]. Congestive heart failure 22611728 I50.9 Patient returns on June 27, 2024. Since previous visit patient has been diagnosed with congestive heart failure and atrial fibrillati on. She has started lasix and is following with a cardiologi st. [id number] Jana España MD [facility] [address] [place] [address] 07/06/2024 10:53:43 07/08/2024 03:53:47 Seen by palliative care service 143118710 Z51.5 Introduced services today. Dtr and son would be NOK - she feels important to start thinking about completion of LW/AD- I provided copies today and [facility] and will plan to f/u on this is two weeks. Encouraged her to think about HCS/code status. Still wants to continue chemo and has scans next week - did not discuss hospice, but eligible at any point Pain due t o neoplastic disease 0434162783 9102 G89.3 Uncontroll ed, had lortab prescribed which manages pain well when she takes medication . Encouraged adherence. 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 Not taking cymbalta. Encouraged adherence and PRN ativan for breakthrou gh syptoms. Did not wish to pursue CBt at this time, will d/w Elsa for additional support options moving forward Nausea and vomiting 1692 1999 R11.2 Related to malignancy vs. Chemo. Improved with PRN and qAM zofran, likely related to chemo vs. malignancy Loss of appetite 4736625 6 R63.0 Related to malignancy . Not taking mirtazapin e. Does not want to add additional Rx at this itme or see nutritioni st. [id number] Hanna Snider PA-C [facility] [address] [place] [address] 07/25/2024 10:19:02 07/25/2024 10:39:35 Malignant tumor of ascending colon 817368502 C18.2 CT scan of the abdomen and [...] 8.2 hematocrit 29.0. MCV 67.9. Platelet count 302734. Normal cell differenti al. Low serum folate [...] Vectibix today. Metastatic malignant neoplasm to liver 29454150 C78.7 CT scan of the abdomen and [...] Findings concerning for metastatic colon cancer. Nausea 059266445 R11.0 As needed Zofran and Phenergan prescribed . Discussed trying scopolamin e patches but her insurance wouldn't cover. She is taking Zofran with relief. Pain due t o neoplastic disease 0164008495 9102 G89.3 She is taking hydrocodon e 7.5 mg b.i.d. Discussed taking medication every 4-6 hours as needed. Anemia 241425562 D64.9 Right-side d colon mass concerning for malignancy . Will assess for any signs of iron deficiency . Hemoglobin previously 8.0. Concern for blood loss from colon mass. Patient reports dark stools. labs on July 25, 2024 with improvemen t of hemoglobin 12.6. Patient is currently receiving infusional iron. Adopted 160161106 Z62.89 8 Patient is adopted and discussed hereditary gene panel. Patient does have family history of her son having bladder cancer. Will send [facility] hereditary panel. Antineopla stic chemotherapy regimen 875902224 Z51.11 Week 1 5FU Leucovorin Vectibix on [...] Patient will not receive Vectibix today. Hypokalemia 76557841 E87 .6 Patient returns on April 29, 2023. Potassium is low at 2.9. Will send prescripti on for potassium 20 mEq daily. Will follow-up labs again next week. Deep venou s thrombosis 518078252 I82.409 Patient developed right lower extremity pain [...] duplex. Mixed anxi ety and depressive disorder 080481794 F41.8 Patient returns on November 23, 2023. [...] reports depression has improved. Atopic conjunctivitis 23 9384318 H10.12 Patient with conjunctiv itis of the left eye. Held Vectibix on December 07, 2023. Continue with current therapy. Will follow up again in 2 weeks. Patient returns on July 25, 2024. She does have conjunctiv itis of the left eye. Will hold Vectibix today. Will follow up. Iron defic iency anemia 08636521 D50.9 Currently receiving infusional iron. Will continue to monitor. Insomnia 807139319 G47.0 0 Patient returns on February 08, 2024. She has had difficulty sleeping for most of her life. She has tried multiple medication s without relief. She is tried Mirtazapin e and lorazepam without improvemen t of insomnia. Discussed trying trazodone instead. Will send prescripti on. Will send prescripti on for Requip for restless legs. Restless legs 90561948 G 25.81 Patient returns on February 08, [...] with diflucan and nystain powder. Generalized rash 1107922 06 R21 Patient returns on May 30, [...] is following with the Coumadin clinic at [facility]. Congestive heart failure 38904754 I50.9 Patient returns on June 27, 2024. Since previous visit patient has been diagnosed with congestive heart failure and atrial fibrillati on. She has started lasix and is following with a cardiologi st. Cachexia 301033890 R64 Patient returns on July 25, 2024. Patient has had decreased appetite. Continues to lose weight. She has lost 4 more lbs since previous visit. She is drinking nutritiona l supplement s. Discussed appetite stimulant. Patient previously refused. Now she is agreeable to try Megace. Will send prescripti on. Will follow up for angela oakley [id number] Tomy King MD [facility] [address] [place] [address] 08/01/2024 11:10:37 08/01/2024 12:30:43 Malignant tumor of ascending colon 888092264 C18.2 CT scan of the abdomen and [...] 8.2 hematocrit 29.0. MCV 67.9. Platelet count 406354. Normal cell differenti al. Low serum folate [...] study published in September 2022 in the [place] [facility] Medicine of combined Avastin therapy [...] Will follow-up Metastatic malignant neoplasm to liver 56736729 C78.7 CT scan of the abdomen and [...] Findings concerning for metastatic colon cancer. Nausea 815213492 R11.0 As needed Zofran and Phenergan prescribed . Discussed trying scopolamin e patches but her insurance wouldn't cover. She is taking Zofran with relief. Pain due t o neoplastic disease 3113789754 9102 G89.3 She is taking hydrocodon e 7.5 mg b.i.d. Discussed taking medication every 4-6 hours as needed. Anemia 621216212 D64.9 Right-side d colon mass concerning for malignancy . Will assess for any signs of iron deficiency . Hemoglobin previously 8.0. Concern for blood loss from colon mass. Patient reports dark stools. labs on July 25, 2024 with improvemen t of hemoglobin 12.6. Patient is currently receiving infusional iron. Adopted 606684690 Z62.89 8 Patient is adopted and discussed hereditary gene panel. Patient does have family history of her son having bladder cancer. Will send [facility] hereditary panel. Antineopla stic chemotherapy regimen 454500175 Z51.11 Week 1 5FU Leucovorin Vectibix on [...] 2024 due to disease progressio n. Hypokalemia 64235058 E87 .6 Patient returns on April 29, 2023. Potassium is low at 2.9. Will send prescripti on for potassium 20 mEq daily. Will follow-up labs again next week. Deep venou s thrombosis 601576750 I82.409 Patient developed right lower extremity pain [...] duplex. Mixed anxi ety and depressive disorder 177487840 F41.8 Patient returns on November 23, 2023. [...] reports depression has improved. Atopic conjunctivitis 23 3120545 H10.12 Patient with conjunctiv itis of the left eye. Held Vectibix on December 07, 2023. Continue with current therapy. Will follow up again in 2 weeks. Patient returns on July 25, 2024. She does have conjunctiv itis of the left eye. Will hold Vectibix today. Will follow up. Iron defic iency anemia 62865875 D50.9 Currently receiving infusional iron. Will continue to monitor. Insomnia 942906709 G47.0 0 Patient returns on February 08, 2024. She has had difficulty sleeping for most of her life. She has tried multiple medication s without relief. She is tried Mirtazapin e and lorazepam without improvemen t of insomnia. Discussed trying trazodone instead. Will send prescripti on. Will send prescripti on for Requip for restless legs. Restless legs 45124172 G 25.81 Patient returns on February 08, [...] with diflucan and nystain powder. Generalized rash 7427852 06 R21 Patient returns on May 30, [...] is following with the Coumadin clinic at [facility]. Congestive heart failure 15103810 I50.9 Patient returns on June 27, 2024. Since previous visit patient has been diagnosed with congestive heart failure and atrial fibrillati on. She has started lasix and is following with a cardiologi st. Cachexia [id number] R64 Patient returns on July 25, 2024. Patient has had decreased appetite. Continues to lose weight. She has lost 4 more lbs since previous visit. She is drinking nutritiona l supplement s. Discussed appetite stimulant. Patient previously refused. Now she is agreeable to try Megace. Will send prescripti on. Will follow up for angela portillo. [id number] Hanna Snider PA-C [facility] [address] [place] [address] 08/10/2024 09:37:37 08/10/2024 10:29:37 Malignant tumor of ascending colon [id number] C18.2 CT scan of the abdomen and [...] 8.2 hematocrit 29.0. MCV 67.9. Platelet count 196933. Normal cell differenti al. Low serum folate [...] study published in September 2022 in the [place] [facility] of combined Avastin therapy [...] liver lesions. Metastatic malignant neoplasm to liver 05594403 C78.7 CT scan of the abdomen and [...] patient is a candidate for radiation Nausea 951802644 R11.0 As needed Zofran and Phenergan prescribed . Discussed trying scopolamin e patches but her insurance wouldn't cover. She is taking Zofran with relief. Pain due t o neoplastic disease [id number] 9102 G89.3 She is taking hydrocodon e 7.5 mg b.i.d. Discussed taking medication every 4-6 hours as needed. Anemia 606098474 D64.9 Right-side d colon mass concerning for malignancy . Will assess for any signs of iron deficiency . Hemoglobin previously 8.0. Concern for blood loss from colon mass. Patient reports dark stools. Labs on August 10, 2024 with hemoglobin slightly low at 11.9. She is receiving infusional iron as needed. Adopted [id number] Z62.89 8 Patient is adopted and discussed hereditary gene panel. Patient does have family history of her son having bladder cancer. [facility] hereditary panel sent Antineopla stic chemotherapy regimen 873714014 Z51.11 Week 1 5FU Leucovorin Vectibix on [...] monitor for tolerabili ty and toxicity. Hypokalemia 78029050 E87 .6 Currently taking for potassium 20 mEq daily. Will follow up labs. Mixed anxi ety and depressive disorder 426900604 F41.8 Patient returns on November 23, 2023. [...] reports depression has improved. Atopic conjunctivitis 23 7407226 H10.12 Conjunctiv itis due to Vectibix. This is improving. Iron defic iency anemia 15570831 D50.9 Currently receiving infusional iron as needed. Will continue to monitor. Insomnia 883213474 G47.0 0 Patient has had difficulty sleeping for most of her life. She has tried multiple medication s without relief. She is tried Mirtazapin e and lorazepam without improvemen t of insomnia. Discussed trying trazodone instead. Restless legs 56709046 G 25.81 Patient taking Requip for restless legs. Generalized rash 0994293 06 R21 Patient with rash due to Vectibix. This is improving. Atrial fibrillation 4943 6004 I48.91 Patient has been diagnosed with congestive heart failure and atrial fibrillati on. She has been started on Coumadin. She is following with the Coumadin clinic at [facility]. Congestive heart failure 11221322 I50.9 Patient has been diagnosed with congestive heart failure. She has started lasix and is following with a cardiologi . Cachexia 365679279 R64 Patient has had decreased appetite and weight loss. She is drinking nutritiona l supplement s. Discussed appetite stimulant. Patient previously refused. She has started on Megace. Will continue to monitor History of deep vein thrombosis 060032308 Z86.718 Patient developed right lower extremity pain [...] repeat venous duplex. Drug therapy finding 309 096791 Z79.01 She continues on Coumadin due to a fib. She is following with the Coumadin clinic at [facility]. [id number] [facility] [address] [place] [address] 08/25/2024 09:02:23 08/25/2024 09:51:52 Antineoplastic chemotherapy regimen 215150636 Z51.11 Week 1 5FU Leucovorin Vectibix on [...] and toxicity. Malignant tumor of ascending colon 300080117 C18.2 CT scan of the abdomen and [...] 8.2 hematocrit 29.0. MCV 67.9. Platelet count 348179. Normal cell differenti al. Low serum folate [...] study published in September 2022 in the [place] [facility] of combined Avastin therapy [...] liver lesions. Metastatic malignant neoplasm to liver 30954275 C78.7 CT scan of the abdomen and [...] patient is a candidate for radiation Nausea 383787287 R11.0 As needed Zofran and Phenergan prescribed . Discussed trying scopolamin e patches but her insurance wouldn't cover. She is taking Zofran with relief. Pain due t o neoplastic disease [id number] 9102 G89.3 She is taking hydrocodon e [...] does take her current medication s Anemia 548412629 D64.9 Right-side d colon mass concerning for malignancy . Will assess for any signs of iron deficiency . Hemoglobin previously 8.0. Concern for blood loss from colon mass. Patient reports dark stools. Labs on August 10, 2024 with hemoglobin slightly low at 11.9. She is receiving infusional iron as needed. Adopted 465445969 Z62.89 8 Patient is adopted and discussed hereditary gene panel. Patient does have family history of her son having bladder cancer. [facility] hereditary panel sent Hypokalemia 57192474 E87 .6 Currently taking for potassium 20 mEq daily. Will follow up labs. Mixed anxi ety and depressive disorder 399761411 F41.8 Patient returns on November 23, 2023. [...] reports depression has improved. Atopic conjunctivitis 23 1619323 H10.12 Conjunctiv itis due to Vectibix. This is improving. Iron defic iency anemia 90998953 D50.9 Receiving infusional iron as needed. Will continue to monitor. Insomnia 183196095 G47.0 0 Patient has had difficulty sleeping for most of her life. She has tried multiple medication s without relief. She is tried Mirtazapin e and lorazepam without improvemen t of insomnia. Discussed trying trazodone instead. Restless legs 38166078 G 25.81 Patient taking Requip for restless legs. Generalized rash 2702663 06 R21 Rash due to Vectibix. This has improved. Atrial fibrillation 4943 6004 I48.91 Patient has been diagnosed with congestive heart failure and atrial fibrillati on. She has been started on Coumadin. She is following with the Coumadin clinic at [facility]. Congestive heart failure 61462080 I50.9 Patient has been diagnosed with congestive heart failure. She has started lasix and is following with a cardiologi st. Cachexia 083799931 R64 Patient has had decreased appetite and weight loss. She is drinking nutritiona l supplement s. Discussed appetite stimulant. Patient previously refused. She has started on Megace. She does not like the taste of Megace. Discussed Megace tablets instead of liquid but patient declines at this time. Will continue to monitor History of deep vein thrombosis 314931468 Z86.718 Patient developed right lower extremity pain [...] repeat venous duplex. Drug therapy finding 309 219976 Z79.01 She continues on Coumadin due to a fib. She is following with the Coumadin clinic at [facility]. Acute post traumatic headache 8777878558 89279 G44.319 Patient returns on August 25, 2024. [...] Internatio nal normalized ratio above reference range 888618918 R79.1 Patient returns on August 25, 2024. She is on Coumadin for atrial fibrillati on and her INR is elevated. She is going to the Coumadin Clinic for management . INR 8 today. She is going to hold Coumadin and contact Coumadin Clinic for directions today. Denies any bleeding at this time. [id number] Hanna Snider PA-C [facility] [address] [facility] [address] [place] [address] 09/02/2024 11:29:36 09/02/2024 12:07:33 Antineoplastic chemotherapy regimen 547490618 Z51.11 Week 1 5FU Leucovorin Vectibix on [...] follow up. Malignant tumor of ascending colon 576210286 C18.2 CT scan of the abdomen and [...] 8.2 hematocrit 29.0. MCV 67.9. Platelet count 167812. Normal cell differenti al. Low serum folate [...] study published in September 2022 in the [place] [facility] of combined Avastin therapy [...] liver lesions. Metastatic malignant neoplasm to liver 54432957 C78.7 CT scan of the abdomen and [...] patient is a candidate for radiation Nausea 292065431 R11.0 As needed Zofran and Phenergan prescribed [...] ons. Pain due t o neoplastic disease [id number] 9102 G89.3 She is taking hydrocodon e [...] tab po every 3-4 hours instead. Anemia 738857014 D64.9 Right-side d colon mass concerning for malignancy . Will assess for any signs of iron deficiency . Hemoglobin previously 8.0. Concern for blood loss from colon mass. Patient reports dark stools. Labs on August 10, 2024 with hemoglobin slightly low at 11.9. She is receiving infusional iron as needed. Adopted 943582727 Z62.89 8 Patient is adopted and discussed hereditary gene panel. Patient does have family history of her son having bladder cancer. [facility] hereditary panel sent Hypokalemia 05942983 E87 .6 Currently taking for potassium 20 mEq daily. Will follow up labs. Mixed anxi ety and depressive disorder 447612690 F41.8 Patient returns on November 23, 2023. [...] reports depression has improved. Atopic conjunctivitis 23 3657419 H10.12 Conjunctiv itis due to Vectibix. This is improving. Iron defic iency anemia 12314160 D50.9 Receiving infusional iron as needed. Will continue to monitor. Insomnia 688235662 G47.0 0 Patient has had difficulty sleeping for most of her life. She has tried multiple medication s without relief. She is tried Mirtazapin e and lorazepam without improvemen t of insomnia. Discussed trying trazodone instead. Restless legs 80556146 G 25.81 Patient taking Requip for restless legs. Generalized rash 1165793 06 R21 Rash due to Vectibix. This has improved. Atrial fibrillation 4943 6004 I48.91 Patient has been diagnosed with congestive heart failure and atrial fibrillati on. She has been started on Coumadin. She is following with the Coumadin clinic at [facility]. Congestive heart failure 05249788 I50.9 Patient has been diagnosed with congestive heart failure. She has started lasix and is following with a cardiologi st. Cachexia 742429297 R64 Patient has had decreased appetite and weight loss. She is drinking nutritiona l supplement s. Discussed appetite stimulant. Patient previously refused. She has started on Megace. She does not like the taste of Megace. Discussed Megace tablets instead of liquid but patient declines at this time. Will continue to monitor History of deep vein thrombosis 488481380 Z86.718 Patient developed right lower extremity pain [...] repeat venous duplex. Drug therapy finding 309 452273 Z79.01 She continues on Coumadin due to a fib. She is following with the Coumadin clinic at [facility]. Internatio nal normalized ratio above reference range 221840011 R79.1 Patient returns on August 25, 2024. She is on Coumadin for atrial fibrillati on and her INR is elevated. She is going to the Coumadin Clinic for management . INR 8 today. She is going to hold Coumadin and contact Coumadin Clinic for directions today. Denies any bleeding at this time. Diarrhea 75339888 R19.7 Patient with increased diarrhea, nausea, and vomiting for the past 4 days. She is taking Imodium and Lomotil without relief. She has a history of C diff. Will order stool studies today. Will check stool for C diff today. Dehydration 04896639 E86 .0 Patient returns on September 02, [...] 07/25/2024 1 [place] Vicky J Chambers [id number] Vicky Frank Chambers 07/25/2024 2 [employer] (MEDICARE SUPPLEMENT) Vicky Frank Chambers [id number] Vicky Frank Chambers 08/01/2024 1 [place] Vicky J Chambers [id number] Vicky Frank Chambers 08/01/2024 2 [employer] (MEDICARE SUPPLEMENT) Vicky Frank Chambers [id number] Vicky Frank Chambers 08/10/2024 1 [place] Vicky J Chambers [id number] Vicky Frank Chambers 08/10/2024 2 [employer] (MEDICARE SUPPLEMENT) Vicky Frank Chambers [id number] Vicky Frank Chambers 08/25/2024 1 [place] Vicky J Chambers [id number] Vicky Frank Chambers 08/25/2024 2 [employer] (MEDICARE SUPPLEMENT) Vicky Frank Chambers [id number] Vicky Frank Chambers 09/02/2024 1 [place] Vicky J Chambers [id number] Vicky Frank Chambers 09/02/2024 2 [employer] (MEDICARE SUPPLEMENT) Vicky Frank Chambers [id number] Vicky Frank Chambers Notes Date Note Type Note Provider Name and Address Organization Details Recorded Time 07/25/2024 text/html 78 yo F returns for evaluation of metastatic colon cancer. Patient recently seen on February 17, 2023 in the emergency room at [facility] with abdominal pain. Patient reported epigastric [...] 8.2 hematocrit 29.0. MCV 67.9. Platelet count 755442. Normal cell differential. Low serum folate of [...] with metastatic colorectal cancer. Discussed chemotherapy with [place] based regimen with 5FU Leucovorin if [...] is following with the Coumadin clinic at [facility]. She is scheduled for cardiac MRI. [...] Will follow up labs. Hanna Snider PA-C [address], [place], [address], [place] - [facility] - [place] & [place] 07/25/2024 11:22:44 08/01/2024 text/html 78 yo F returns for evaluation of metastatic colon cancer. Patient recently seen on February 17, 2023 in the emergency room at [facility] with abdominal pain. Patient reported epigastric [...] 8.2 hematocrit 29.0. MCV 67.9. Platelet count 193248. Normal cell differential. Low serum folate of [...] with metastatic colorectal cancer. Discussed chemotherapy with [place] based regimen with 5FU Leucovorin if [...] is following with the Coumadin clinic at [facility]. She is scheduled for cardiac MRI. [...] study published in September 2022 in the [place] [facility] of combined Avastin therapy with [place]. Phase 3 trial with median overall survival of 10.8 months in combination therapy verses 7.5 months L[place]urf alone. Progression-free survival 5.6 months versus 2.4 months in [place] alone therapy. Tomy King MD [address] [facility], [place], [address], [place] [facility] - [place] & [place] 08/01/2024 13:08:52 08/10/2024 text/html 78 yo F returns for evaluation of metastatic colon cancer. Patient recently seen on February 17, 2023 in the emergency room at [facility] with abdominal pain. Patient reported epigastric [...] 8.2 hematocrit 29.0. MCV 67.9. Platelet count 344037. Normal cell differential. Low serum folate of [...] with metastatic colorectal cancer. Discussed chemotherapy with [place] based regimen with 5FU Leucovorin if [...] is following with the Coumadin clinic at [facility]. She is scheduled for cardiac MRI. [...] study published in September 2022 in the [place] [facility] of combined Avastin therapy [...] for tolerability and toxicity. Hanna Snider PA-C [address], [place], [address], [place] [facility] - [place] & [place] 08/10/2024 11:13:32 08/25/2024 text/html 78 yo F returns for evaluation of metastatic colon cancer. Patient recently seen on February 17, 2023 in the emergency room at [facility] with abdominal pain. Patient reported epigastric [...] 8.2 hematocrit 29.0. MCV 67.9. Platelet count 482935. Normal cell differential. Low serum folate of [...] with metastatic colorectal cancer. Discussed chemotherapy with [place] based regimen with 5FU Leucovorin if [...] is following with the Coumadin clinic at [facility]. She is scheduled for cardiac MRI. [...] study published in September 2022 in the [place] [facility] of combined Avastin therapy [...] toxicity. Hanna Snider PA-C [address], [place], [address], [place] [facility] - [place] & [place] 08/25/2024 10:43:13 09/02/2024 text/html 78 yo F returns for evaluation of metastatic colon cancer. Patient recently seen on February 17, 2023 in the emergency room at [facility] with abdominal pain. Patient reported epigastric [...] 8.2 hematocrit 29.0. MCV 67.9. Platelet count 542875. Normal cell differential. Low serum folate of [...] with metastatic colorectal cancer. Discussed chemotherapy with [place] based regimen with 5FU Leucovorin if [...] is following with the Coumadin clinic at [facility]. She is scheduled for cardiac MRI. [...] study published in September 2022 in the [place] [facility] of combined Avastin therapy [...] cycle. Will follow up. Hanna Snider PA-C [address], [place], [address], [facility] - [place] & [place] 09/02/2024 12:55:35 OBGyn Episode No OBEpisode recorded.
--- OUTSIDE RECORDS SUMMARY | 2024-09-23 10:57 | XMS_ITS | Continuity of Care Document ---
Author Organization [facility] Address [address] [place] [address] Care Team Providers Care Motor Vehicle Parts Interpreter Name Role Phone ADDY GONZALES General Surgeon CARLOS A COATS Primary Care Provider [phone] VERONIKA RIVER Liability Analyst Assessment No assessment recorded. Plan of Treatment Reminders Order Date Submit Date Provider Last Modified By Organization Details Last Modified Time Details Appointments None recorded. Lab None recorded. Referral radiation oncologist referral 2024 025 [email or web address] 6 Mary Valencia MD, [address] [place], [address], 5 08:24:10 Procedures None recorded. Surgeries None recorded. Imaging None recorded. Medication Orders None recorded. Patient TargetsNo targets recorded. Patient InstructionsNo instructions recorded. Reason for Referral Referring Physician: Parish Snider Hematology/Oncology, Encounter Date: 08/10/2024 Results Created Date Observation Date Name Description Value Unit Range Abnormal Flag Note LastModifiedBy Organization Detail LastModifiedTime 07/28/1907/28/2024 CT ABD pel w/ (IV [facility] [address] [place] [address] Phone: Fax: Name: DESHAWN MCMAHAN Exam Date: 025 : 948 Age 78 years Gender : F Access ion: [id number] 2023 Physic jesus: PARISH PARKER Facili ty: [place] Fac[place] ty HSV: Outpat ient Exam: CT ABD PEL W/ (IV ^ ORAL) CT ABDOME N PELVIS WITH IV CONTRA ST 025 2:46 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 Legall y authen ticate d by VAMSHI HALL 07-28 15:46: 13 CC'ed Logic: Orderi ng Provid er: DIGNA LUGO Attend ing Provid er: DIGNA LUGO Referr ing Provid er: DIGNA LUGO Admitt ing Provid er: DIGNA paulino[address] - Physical Therapy [address] [place] [address], [address], 07/29/2024 11:36:27 08/02/19 25 07/28/2024 CT, chest , w/ contr ast [facility] [address] [place] [address] Phone: Fax: Name: DESHAWN MCMAHAN Exam Date: 025 : 948 Age 78 years Gender : F Access ion: [id number] 2023 Physic jesus: PAR[facility] PARKER Facili [...] you for referr ing DESHAWN MCMAHAN to [facility] it Hospit al. Legall y authen ticate d by AVIS ALBA IN 07-28 15:46: 34 CC'ed Logic: Orderi ng Provid er: DIGNA LUGO Attend ing Provid er: DIGNA LUGO Referr ing Provid er: DIGNA LUGO Admitt ing Provid er: DIGNA LUGO [address] - Physical Therapy [address] [facility], [place], [address], 08/01/2024 10:49:34 Result Notes None recorded. Problems Name Problem SNOMED Code Status Onset Date Resolution Date Notes Provider Name and Address Organization Details Recorded Time Headache 36916374 Active 2024 Christine yusufBRISTOL, [place] - [facility] & [place] 5 10:27:12 Metastatic malignant neoplasm to liver 54430411 Active [address], [place], [address] , [facility] - [facility] & [place] 3 14:27:25 Mass of colon 076653275 Active [address], [place], [address] , [facility] - [facility] & [place] 3 14:27:30 Anemia 407756306 Active [address], [place], [address] , [facility] - [facility] & [place] 3 14:27:36 Nausea and vomiting 53789849 Active [address], [place], [address] , [facility] - [facility] & [place] 3 14:27:46 Unintentional weight loss 188936166 Active [address], [facility] [address] , [facility] - [facility] & [place] 3 16:13:07 Night sweats 51734773 Active [address], [facility] [address] , [facility] - [facility] & [place] 3 16:13:12 Problem Notes None recorded. Procedures Surgical History Date Name Laterality Status Provider Name and Address Organization Details Recorded Time 04/29/20 23 Venipuncture completed Parish Snider PA-C [address], [place], [address], [facility] & [place] 04/27/2023 15:05:29 04/15/20 23 Venipuncture completed Stephanie Maravilla [facility] & [place] 04/15/2023 15:24:55 hysterectomy completed Laurel Samuels [facility] & [place] 03/11/2023 15:30:22 extraction of cataract completed Laurel Samuels [facility] & [place] 03/11/2023 15:30:36 excision of colon completed Neelammounika Carlyle [facility] & [place] 04/21/2023 11:32:07 Imaging Results None recorded. Procedure Notes None recorded. Medical Equipment None Reported. Allergies Allergen ID Allergen Name Allergen Category Reaction Reaction Severity Criticality Documentation Date Start Date Code Code System Note Provider Name and Address Organization Details Recorded Time 03047 tetracycl ine medicatio n hives Not available high 02/19/2023 48687 RxNorm Brandy Raheem [facility] & [place] 3 14:03:33 Medications Name [...] Updated DateTime 5 162.56 cm 36 kg/m2 93447.4 g 97 [degF] 90 % 90 % 57 /min 18 /min 143 mm[Hg] 68 mm[Hg] Laurel ELIAS [facility] [place] & [place] 5 10:00:38 Social History Question Answer Notes LastModified by Organizat ion Details LastModified Time Tobacco Smoking Status Never Smoker Brandy yusuf, CURT Lai [facility] & [place] 02/19/2023 14:02:59 What Is Your Level Of Alcohol Consumption? None [email or web address] Information not available 02/19/2023 What Is Your Level Of Caffeine Consumption? None [email or web address] Information not available 02/19/2023 What Was The Date Of Your Most Recent Tobacco Screening? 11/23/2023 [email or web address] Information not available 11/23/2023 Do You Use Any Illicit Or Recreational Drugs? No [email or web address] Information not available 02/19/2023 Has Tobacco Cessation Counseling Been Provided? No [email or web address] Information not available 07/13/2023 Do You Or Have You Ever Used Any Other Forms Of Tobacco Or Nicotine? No [email or web address] Information not available 02/19/2023 Sex: Unknown Functional Status None recorded. Mental Status None recorded. Family History Nothing Reported. Medical History No medical history recorded. Gynecological HistoryNo gynecological history recorded. Obstetrics History GPAL:G 0 P 0 0 0 0 Immunizations Vaccine Type Date Status Note Provider Nam e and Address Organization Details Recorded Time pneumococcal polysaccharide PPV23 7 completed Stephanie Taiwogerard yusuf, [facility] [place] 12/21/2023 09:56:34 Past Encounters Encounter ID Performer Location Encounter Start Date Encounter Closed Date Diagnosis/Indication Diagnosis SNOMED-CT Code Diagnosis ICD10 Code Diagnosis Note [id number] Parish Snider PA-C [facility] [address] [place] [address] 07/25/2024 10:19:02 07/25/2024 10:39:35 Malignant tumor of ascending colon 313184424 C18.2 CT scan of the abdomen and [...] 8.2 hematocrit 29.0. MCV 67.9. Platelet count 723958. Normal cell differenti al. Low serum folate [...] Vectibix today. Metastatic malignant neoplasm to liver 29032569 C78.7 CT scan of the abdomen and [...] Findings concerning for metastatic colon cancer. Nausea 085797704 R11.0 As needed Zofran and Phenergan prescribed . Discussed trying scopolamin e patches but her insurance wouldn't cover. She is taking Zofran with relief. Pain due t o neoplastic disease 4195312713 9102 G89.3 She is taking hydrocodon e 7.5 mg b.i.d. Discussed taking medication every 4-6 hours as needed. Anemia 909565464 D64.9 Right-side d colon mass concerning for malignancy . Will assess for any signs of iron deficiency . Hemoglobin previously 8.0. Concern for blood loss from colon mass. Patient reports dark stools. labs on July 25, 2024 with improvemen t of hemoglobin 12.6. Patient is currently receiving infusional iron. Adopted 378082999 Z62.89 8 Patient is adopted and discussed hereditary gene panel. Patient does have family history of her son having bladder cancer. Will send [facility] hereditary panel. Antineopla stic chemotherapy regimen 108216747 Z51.11 Week 1 5FU Leucovorin Vectibix on [...] Patient will not receive Vectibix today. Hypokalemia 45036427 E87 .6 Patient returns on April 29, 2023. Potassium is low at 2.9. Will send prescripti on for potassium 20 mEq daily. Will follow-up labs again next week. Deep venou s thrombosis 715642527 I82.409 Patient developed right lower extremity pain [...] duplex. 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 [...] reports depression has improved. Atopic conjunctivitis 23 7442267 H10.12 Patient with conjunctiv itis of the left eye. Held Vectibix on December 07, 2023. Continue with current therapy. Will follow up again in 2 weeks. Patient returns on July 25, 2024. She does have conjunctiv itis of the left eye. Will hold Vectibix today. Will follow up. Iron defic iency anemia 69710880 D50.9 Currently receiving infusional iron. Will continue to monitor. Insomnia 819217788 G47.0 0 Patient returns on February 08, 2024. She has had difficulty sleeping for most of her life. She has tried multiple medication s without relief. She is tried Mirtazapin e and lorazepam without improvemen t of insomnia. Discussed trying trazodone instead. Will send prescripti on. Will send prescripti on for Requip for restless legs. Restless legs 16099773 G 25.81 Patient returns on February 08, [...] with diflucan and nystain powder. Generalized rash 7905491 06 R21 Patient returns on May 30, [...] is following with the Coumadin clinic at [facility]. Congestive heart failure 48254381 I50.9 Patient returns on June 27, 2024. Since previous visit patient has been diagnosed with congestive heart failure and atrial fibrillati on. She has started lasix and is following with a cardiologi [facility] 823454684 R64 Patient returns on July 25, 2024. Patient has had decreased appetite. Continues to lose weight. She has lost 4 more lbs since previous visit. She is drinking nutritiona l supplement s. Discussed appetite stimulant. Patient previously refused. Now she is agreeable to try Megace. Will send prescripti on. Will follow up for angela [place] [id number] Tomy King MD [facility] [address] [place] [address] 08/01/2024 11:10:37 08/01/2024 12:30:43 Malignant tumor of ascending colon 856984031 C18.2 CT scan of the abdomen and [...] 8.2 hematocrit 29.0. MCV 67.9. Platelet count 273616. Normal cell differenti al. Low serum folate [...] study published in September 2022 in the [place] Journal Medicine of combined Avastin therapy [...] Will follow-up Metastatic malignant neoplasm to liver 17174040 C78.7 CT scan of the abdomen and [...] Findings concerning for metastatic colon cancer. Nausea 317983935 R11.0 As needed Zofran and Phenergan prescribed . Discussed trying scopolamin e patches but her insurance wouldn't cover. She is taking Zofran with relief. Pain due t o neoplastic disease 7361058673 9102 G89.3 She is taking hydrocodon e 7.5 mg b.i.d. Discussed taking medication every 4-6 hours as needed. Anemia 687298644 D64.9 Right-side d colon mass concerning for malignancy . Will assess for any signs of iron deficiency . Hemoglobin previously 8.0. Concern for blood loss from colon mass. Patient reports dark stools. labs on July 25, 2024 with improvemen t of hemoglobin 12.6. Patient is currently receiving infusional iron. Adopted 393886367 Z62.89 8 Patient is adopted and discussed hereditary gene panel. Patient does have family history of her son having bladder cancer. Will send [facility] hereditary panel. Antineopla stic chemotherapy regimen 610397950 Z51.11 Week 1 5FU Leucovorin Vectibix on [...] 2024 due to disease progressio n. Hypokalemia 25309581 E87 .6 Patient returns on April 29, 2023. Potassium is low at 2.9. Will send prescripti on for potassium 20 mEq daily. Will follow-up labs again next week. Deep venou s thrombosis 878697754 I82.409 Patient developed right lower extremity pain [...] duplex. Mixed anxi ety and depressive disorder 893844892 F41.8 Patient returns on November 23, 2023. [...] reports depression has improved. Atopic conjunctivitis 23 1616051 H10.12 Patient with conjunctiv itis of the left eye. Held Vectibix on December 07, 2023. Continue with current therapy. Will follow up again in 2 weeks. Patient returns on July 25, 2024. She does have conjunctiv itis of the left eye. Will hold Vectibix today. Will follow up. Iron defic iency anemia 68780716 D50.9 Currently receiving infusional iron. Will continue to monitor. Insomnia 376123024 G47.0 0 Patient returns on February 08, 2024. She has had difficulty sleeping for most of her life. She has tried multiple medication s without relief. She is tried Mirtazapin e and lorazepam without improvemen t of insomnia. Discussed trying trazodone instead. Will send prescripti on. Will send prescripti on for Requip for restless legs. Restless legs 43504590 G 25.81 Patient returns on February 08, [...] with diflucan and nystain powder. Generalized rash 3437494 06 R21 Patient returns on May 30, [...] is following with the Coumadin clinic at [facility]. Congestive heart failure 01124888 I50.9 Patient returns on June 27, 2024. Since previous visit patient has been diagnosed with congestive heart failure and atrial fibrillati on. She has started lasix and is following with a cardiologi . Cachexia 411402223 R64 Patient returns on July 25, 2024. Patient has had decreased appetite. Continues to lose weight. She has lost 4 more lbs since previous visit. She is drinking nutritiona l supplement s. Discussed appetite stimulant. Patient previously refused. Now she is agreeable to try Megace. Will send prescripti on. Will follow up for angela [place] [id number] Parish Snider PA-C [facility] [address] [place] [address] 08/10/2024 09:37:37 08/10/2024 10:29:37 Malignant tumor of ascending colon 224509703 C18.2 CT scan of the abdomen and [...] 8.2 hematocrit 29.0. MCV 67.9. Platelet count 477596. Normal cell differenti al. Low serum folate [...] study published in September 2022 in the [place] Journal Medicine of combined Avastin therapy [...] liver lesions. Metastatic malignant neoplasm to liver 07493222 C78.7 CT scan of the abdomen and [...] patient is a candidate for radiation Nausea 344849796 R11.0 As needed Zofran and Phenergan prescribed . Discussed trying scopolamin e patches but her insurance wouldn't cover. She is taking Zofran with relief. Pain due t o neoplastic disease 3133354322 9102 G89.3 She is taking hydrocodon e 7.5 mg b.i.d. Discussed taking medication every 4-6 hours as needed. Anemia 429649367 D64.9 Right-side d colon mass concerning for malignancy . Will assess for any signs of iron deficiency . Hemoglobin previously 8.0. Concern for blood loss from colon mass. Patient reports dark stools. Labs on August 10, 2024 with hemoglobin slightly low at 11.9. She is receiving infusional iron as needed. Adopted 688442707 Z62.89 8 Patient is adopted and discussed hereditary gene panel. Patient does have family history of her son having bladder cancer. [facility] hereditary panel sent Antineopla stic chemotherapy regimen 884659380 Z51.11 Week 1 5FU Leucovorin Vectibix on [...] monitor for tolerabili ty and toxicity. Hypokalemia 84681873 E87 .6 Currently taking for potassium 20 mEq daily. Will follow up labs. Mixed anxi ety and depressive disorder 277485900 F41.8 Patient returns on November 23, 2023. [...] reports depression has improved. Atopic conjunctivitis 23 6668422 H10.12 Conjunctiv itis due to Vectibix. This is improving. Iron defic iency anemia 28989393 D50.9 Currently receiving infusional iron as needed. Will continue to monitor. Insomnia 782391935 G47.0 0 Patient has had difficulty sleeping for most of her life. She has tried multiple medication s without relief. She is tried Mirtazapin e and lorazepam without improvemen t of insomnia. Discussed trying trazodone instead. Restless legs 56395437 G 25.81 Patient taking Requip for restless legs. Generalized rash 0179602 06 R21 Patient with rash due to Vectibix. This is improving. Atrial fibrillation 4943 6004 I48.91 Patient has been diagnosed with congestive heart failure and atrial fibrillati on. She has been started on Coumadin. She is following with the Coumadin clinic at [facility]. Congestive heart failure 06667742 I50.9 Patient has been diagnosed with congestive heart failure. She has started lasix and is following with a cardiologi st. Cachexia 419593684 R64 Patient has had decreased appetite and weight loss. She is drinking nutritiona l supplement s. Discussed appetite stimulant. Patient previously refused. She has started on Megace. Will continue to monitor History of deep vein thrombosis 800481518 Z86.718 Patient developed right lower extremity pain [...] repeat venous duplex. Drug therapy finding 309 766680 Z79.01 She continues on Coumadin due to a fib. She is following with the Coumadin clinic at [facility]. Health Concerns Section Related Observation LastModified by Organization Detai ls LastModified Time None Recorded Concern Status LastModified by Organization Details LastModified Time None Recorded Payers Encounter Date Sequence Insurance Name Policy Number Policy Bell Covered Member ID Bell Member ID Guarantor Name 08/10/2024 1 [place] Deshawn Roblero [id number] Deshawn Roblero 08/10/2024 2 [employer] (MEDICARE SUPPLEMENT) Deshawn Roblero [id number] Deshawn Roblero Notes Date Note Type Note Provider Name and Address Organization Details Recorded Time 08/10/2024 text/html 78 yo F returns for evaluation of metastatic colon cancer. Patient recently seen on February 17, 2023 in the emergency room at [facility] with abdominal pain. Patient reported epigastric [...] 8.2 hematocrit 29.0. MCV 67.9. Platelet count 019543. Normal cell differential. Low serum folate of [...] with metastatic colorectal cancer. Discussed chemotherapy with [place] based regimen with 5FU Leucovorin if [...] is following with the Coumadin clinic at [facility]. She is scheduled for cardiac MRI. [...] study published in September 2022 in the [place] Journal Medicine of combined Avastin therapy [...] for tolerability and toxicity. Parish Snider PA-C [address] , [place], [address], [place] - [facility] - [place] & [place] 08/10/2024 11:13:32 OBGyn Episode No OBEpisode recorded.
--- OUTSIDE RECORDS SUMMARY | 2024-09-23 10:57 | XMS_ITS | Continuity of Care Document ---
Author Organization [facility] Address [address] [place] [address] Care Team Providers Care Slot Key Person Name Role Phone ADDY GONZALES General Surgeon CARLOS A COATS Primary Care Provider [phone] VERONIKA RIVER [employer] Assessment No assessment recorded. Plan of Treatment Reminders Order Date Submit Date Provider Last Modified By Organization Details Last Modified Time Details Appointments None recorded. Lab None recorded. Referral None recorded. Procedures None recorded. Surgeries None recorded. Imaging None recorded. Medication Orders megestrol 400 mg/10 mL (40 mg/mL) oral suspension 2024 025 [email or web address] [id number], [address] [place], [address], 5 11:59:15 Patient TargetsNo targets recorded. Patient InstructionsNo instructions recorded. Reason for Referral None Reported. Results Created Date Observation Date Name Description Value Unit Range Abnormal Flag Note LastModifiedBy Organization Detail LastModifiedTime 07/28/1907/28/2024 CT ABD pel w/ (IV [facility] [address] [place] [address] Phone: Fax: Name: DESHAWN MCMAHAN Exam Date: 025 : 948 Age 78 years Gender : F Access ion: [id number] 2023 Physic jesus: PAR[facility] P[facility]ER ty: [facility] Facili ty HSV: Outpat ient Exam: CT ABD PEL W/ (IV ^ ORAL) CT ABDOME N PELVIS WITH IV CONTRA ST 025 2:46 PM [facility] INDICA TION: Female , 78 [...] r findin gs compar e 2023, index residential treatment counselor ior segmen t right lobe segmen t [...] DIGNA LUGO Admitt ing Provid er: DIGNA taylor[address] [place] [address] - Physical Therapy [address] [place], [address], 07/29/2024 11:36:27 08/02/1907/28/2024 CT, chest , w/ contr ast [facility] [address] [place] [address] Phone: Fax: Name: DESHAWN MCMAHAN Exam Date: : 948 Age 78 years Gender : F Access ion: [id number] 2023 Physic jesus: [facility]ER Facili ty: [facility] Facili ty HSV: Outpat ient [...] you for referr ing DESHAWN MCMAHAN to [facility]. Legall y authen ticate d by AVIS ALBA IN 07-28 15:46: 34 CC'ed Logic: Orderi ng Provid er: DIGNA LUGO Attend ing Provid er: DIGNA LUGO Referr ing Provid er: DIGNA LUGO Admitt ing Provid er: [facility]IG[facility] LU[facility] - Physical Therapy [address] , [place], [address], 08/01/2024 10:49:34 Result Notes None recorded. Problems Name Problem SNOMED Code Status Onset Date Resolution Date Notes Provider Name and Address Organization Details Recorded Time Headache 87268874 Active 2024 Christine Farfan paramjit[place]IVET, [place] - [facility]NT [facility] & [place] 5 10:27:12 Metastatic malignant neoplasm to liver 22293253 Active [address], [facility] [address] , [place] - [facility] & [place] 3 14:27:25 Mass of colon 511368968 [facility] [facility] [address] , [facility] - [facility] & [place] 3 14:27:30 Anemia 683627189 Active 2022 [place] [place] [address] , [facility] - [facility] & [place] 3 14:27:36 Nausea and vomiting 39155626 Active 2022 [facility] [address] , [facility] & [place] 3 14:27:46 Unintentional weight loss 238953971 Active 2022 [address] [place] [address] , [facility] - [facility] & [place] 3 16:13:07 Night sweats 31561387 Active [address]22 [facility] [address] , [facility] & [place] 3 16:13:12 Problem Notes None recorded. Procedures Surgical History Date Name Laterality Status Provider Name and Address Organization Details Recorded Time 04/29/20 [facility] [address], CURT Lai [facility] & [place] 04/27/2023 15:05:29 04/15/20 23 Venipuncture completed Stephanie Maravilla [facility] & [place] 04/15/2023 15:24:55 hysterectomy completed Laurel ELIAS [facility] & [place] 03/11/2023 15:30:22 extraction of cataract completed Laurel Lai [facility] & [place] 03/11/2023 15:30:36 excision of colon completed Loree Tadeo [facility] & [place] 04/21/2023 11:32:07 Imaging Results None recorded. Procedure Notes None recorded. Medical Equipment None Reported. Allergies Allergen ID Allergen Name Allergen Category Reaction Reaction Severity Criticality Documentation Date Start Date Code Code System Note Provider Name and Address Organization Details Recorded Time 73025 tetracycl ine medicatio n hives Not available high 02/19/2023 59310 RxNorm Brandysa Maciel [facility] CURT Lai [facility] & [place] 3 14:03:33 Medications Name Sig Start Date [...] Available Not Available Not Available amoxicillin 500 mg-potsarahiu m clavulanate 125 mg tablet TAKE ONE [...] Updated DateTime 5 162.56 cm 35.2 kg/m2 03160.4 4 g 97.7 [degF] 60 /min 99 % 99 % 159 mm[Hg] 61 mm[Hg] Laurel Samuels [place] - [facility] - [place] & [place] 5 12:08:08 Social History Question Answer Notes LastModified by Organizat ion Details LastModified Time Tobacco Smoking Status Never Smoker Brandy Maciel null, CURT Lai [facility] & [place] 02/19/2023 14:02:59 What Is Your Level Of Alcohol Consumption? None [email or web address] Information not available 02/19/2023 What Is Your Level Of Caffeine Consumption? None [email or web address] Information not available 02/19/2023 What Was The Date Of Your Most Recent Tobacco Screening? 11/23/2023 [email or web address] Information not available 11/23/2023 Do You Use Any Illicit Or Recreational Drugs? No [email or web address] Information not available 02/19/2023 Has Tobacco Cessation Counseling Been Provided? No [email or web address] Information not available 07/13/2023 Do You Or Have You Ever Used Any Other Forms Of Tobacco Or Nicotine? No [email or web address] Information not available 02/19/2023 Sex: Unknown Functional Status None recorded. Mental Status None recorded. Family History Nothing Reported. Medical History No medical history recorded. Gynecological HistoryNo gynecological history recorded. Obstetrics History GPAL:G 0 P 0 0 0 0 Immunizations Vaccine Type Date Status Note Provider Nam e and Address Organization Details Recorded Time pneumococcal polysaccharide PPV23 7 completed CURT Matta [facility] & [place] 12/21/2023 09:56:34 Past Encounters Encounter ID Performer Location Encounter Start Date Encounter Closed Date Diagnosis/Indication Diagnosis SNOMED-CT Code Diagnosis ICD10 Code Diagnosis Note [id number] Parish Snider PA-C [facility] [address] [facility] [address] [place] [address] 07/11/2024 09:55:48 07/11/2024 10:53:23 Malignant tumor of ascending colon 143538233 C18.2 CT scan of the abdomen and [...] 8.2 hematocrit 29.0. MCV 67.9. Platelet count 151579. Normal cell differenti al. Low serum folate [...] up labs. Metastatic malignant neoplasm to liver 15663064 C78.7 CT scan of the abdomen and [...] Findings concerning for metastatic colon cancer. Nausea 065555205 R11.0 As needed Zofran and Phenergan prescribed . Discussed trying scopolamin e patches but her insurance wouldn't cover. She is taking Zofran with relief. Pain due t o neoplastic disease 2040756982 9102 G89.3 She is taking hydrocodon e 7.5 mg b.i.d. Discussed taking medication every 4-6 hours as needed. Anemia 809308063 D64.9 Right-side d colon mass concerning for malignancy . Will assess for any signs of iron deficiency . Most recent hemoglobin at 8.0. Concern for blood loss from colon mass. Patient reports dark stools. Adopted 120415720 Z62.89 8 Patient is adopted and discussed hereditary gene panel. Patient does have family history of her son having bladder cancer. Will send [facility] hereditary panel. Antineopla stic chemotherapy regimen 856172253 Z51.11 Week 1 5FU Leucovorin Vectibix on [...] 2024. Patient will receive Vectibix today. Hypokalemia 79436656 E87 .6 Patient returns on April 29, 2023. Potassium is low at 2.9. Will send prescripti on for potassium 20 mEq daily. Will follow-up labs again next week. Deep venou s thrombosis 130913448 I82.409 Patient developed right lower extremity pain [...] duplex. Mixed anxi ety and depressive disorder 508525559 F41.8 Patient returns on November 23, 2023. [...] prescripti on for Cymbalta. Atopic conjunctivitis 23 0608551 H10.12 Patient with conjunctiv itis of the left eye. Held Vectibix on December 07, 2023. Continue with current therapy. Will follow up again in 2 weeks. Iron defic iency anemia 85715542 D50.9 Will follow up labs Insomnia 041445607 G47.0 0 Patient returns on February 08, 2024. She has had difficulty sleeping for most of her life. She has tried multiple medication s without relief. She is tried Mirtazapin e and lorazepam without improvemen t of insomnia. Discussed trying trazodone instead. Will send prescripti on. Will send prescripti on for Requip for restless legs. Restless legs 24400304 G 25.81 Patient returns on February 08, [...] patient has not received Vectibix. Generalized rash 1478266 06 R21 Patient returns on May 30, [...] is following with the Coumadin clinic at [facility]. Congestive heart failure 46258446 I50.9 Patient returns on June 27, 2024. Since previous visit patient has been diagnosed with congestive heart failure and atrial fibrillati on. She has started lasix and is following with a cardiologi st. [id number] Jana España MD [facility] [address] [place] [address] 07/06/2024 10:53:43 07/08/2024 03:53:47 Seen by palliative care service 874358702 Z51.5 Introduced services today. Dtr and son would be NOK - she feels important to start thinking about completion of LW/AD- I provided copies today and will loop in Elsa [facility] f/u and will plan to f/u on this is two weeks. Encouraged her to think about HCS/code status. Still wants to continue chemo and has scans next week - did not discuss hospice, but eligible at any point Pain due t o neoplastic disease 5660023690 9102 G89.3 Uncontroll ed, had lortab prescribed which manages pain well when she takes medication . Encouraged adherence. Mixed anxi ety and depressive disorder 387537683 F41.8 Uncontroll ed. Not taking cymbalta. Encouraged adherence and PRN ativan for breakthrou gh syptoms. Did not wish to pursue CBt at this time, will d/w Elsa for additional support options moving forward Nausea and vomiting 1693 2000 R11.2 Related to malignancy vs. Chemo. Improved with PRN and qAM zofran, likely related to chemo vs. malignancy Loss of appetite 2110341 6 R63.0 Related to malignancy . Not taking mirtazapin e. Does not want to add additional Rx at this itme or see nutritioni st. [id number] Parish Snider PA-C [facility] [address] [place] [address] 07/25/2024 10:19:02 07/25/2024 10:39:35 Malignant tumor of ascending colon 835463909 C18.2 CT scan of the abdomen and [...] 8.2 hematocrit 29.0. MCV 67.9. Platelet count 988331. Normal cell differenti al. Low serum folate [...] Vectibix today. Metastatic malignant neoplasm to liver 42495359 C78.7 CT scan of the abdomen and [...] Findings concerning for metastatic colon cancer. Nausea 956081698 R11.0 As needed Zofran and Phenergan prescribed . Discussed trying scopolamin e patches but her insurance wouldn't cover. She is taking Zofran with relief. Pain due t o neoplastic disease 5192506159 9102 G89.3 She is taking hydrocodon e 7.5 mg b.i.d. Discussed taking medication every 4-6 hours as needed. Anemia 076228593 D64.9 Right-side d colon mass concerning for malignancy . Will assess for any signs of iron deficiency . Hemoglobin previously 8.0. Concern for blood loss from colon mass. Patient reports dark stools. labs on July 25, 2024 with improvemen t of hemoglobin 12.6. Patient is currently receiving infusional iron. Adopted 916149872 Z62.89 8 Patient is adopted and discussed hereditary gene panel. Patient does have family history of her son having bladder cancer. Will send [facility] hereditary panel. Antineopla stic chemotherapy regimen 798796555 Z51.11 Week 1 5FU Leucovorin Vectibix on [...] Patient will not receive Vectibix today. Hypokalemia 50909346 E87 .6 Patient returns on April 29, 2023. Potassium is low at 2.9. Will send prescripti on for potassium 20 mEq daily. Will follow-up labs again next week. Deep venou s thrombosis 060382926 I82.409 Patient developed right lower extremity pain [...] duplex. Mixed anxi ety and depressive disorder 801490496 F41.8 Patient returns on November 23, 2023. [...] reports depression has improved. Atopic conjunctivitis 23 5991665 H10.12 Patient with conjunctiv itis of the left eye. Held Vectibix on December 07, 2023. Continue with current therapy. Will follow up again in 2 weeks. Patient returns on July 25, 2024. She does have conjunctiv itis of the left eye. Will hold Vectibix today. Will follow up. Iron defic iency anemia 26156484 D50.9 Currently receiving infusional iron. Will continue to monitor. Insomnia 750892250 G47.0 0 Patient returns on February 08, 2024. She has had difficulty sleeping for most of her life. She has tried multiple medication s without relief. She is tried Mirtazapin e and lorazepam without improvemen t of insomnia. Discussed trying trazodone instead. Will send prescripti on. Will send prescripti on for Requip for restless legs. Restless legs 11670070 G 25.81 Patient returns on February 08, [...] with diflucan and nystain powder. Generalized rash 0570490 06 R21 Patient returns on May 30, [...] is following with the Coumadin clinic at [facility]. Congestive heart failure 69525859 I50.9 Patient returns on June 27, 2024. Since previous visit patient has been diagnosed with congestive heart failure and atrial fibrillati on. She has started lasix and is following with a cardiologi st. Cachexia 953039249 R64 Patient returns on July 25, 2024. Patient has had decreased appetite. Continues to lose weight. She has lost 4 more lbs since previous visit. She is drinking nutritiona l supplement s. Discussed appetite stimulant. Patient previously refused. Now she is agreeable to try Megace. Will send prescripti on. Will follow up for angela portillo. [id number] Tomy King MD [facility] [address] [place] [address] 08/01/2024 11:10:37 08/01/2024 12:30:43 Malignant tumor of ascending colon 927295278 C18.2 CT scan of the abdomen and [...] 8.2 hematocrit 29.0. MCV 67.9. Platelet count 446731. Normal cell differenti al. Low serum folate [...] study published in September 2022 in the [place] [employer] Medicine of combined Avastin therapy with [...] Will follow-up Metastatic malignant neoplasm to liver 88978536 C78.7 CT scan of the abdomen and [...] Findings concerning for metastatic colon cancer. Nausea 528851810 R11.0 As needed Zofran and Phenergan prescribed . Discussed trying scopolamin e patches but her insurance wouldn't cover. She is taking Zofran with relief. Pain due t o neoplastic disease 5002055665 9102 G89.3 She is taking hydrocodon e 7.5 mg b.i.d. Discussed taking medication every 4-6 hours as needed. Anemia 037357510 D64.9 Right-side d colon mass concerning for malignancy . Will assess for any signs of iron deficiency . Hemoglobin previously 8.0. Concern for blood loss from colon mass. Patient reports dark stools. labs on July 25, 2024 with improvemen t of hemoglobin 12.6. Patient is currently receiving infusional iron. Adopted 350518908 Z62.89 8 Patient is adopted and discussed hereditary gene panel. Patient does have family history of her son having bladder cancer. Will send [facility] hereditary panel. Antineopla stic chemotherapy regimen 768742794 Z51.11 Week 1 5FU Leucovorin Vectibix on [...] 2024 due to disease progressio n. Hypokalemia 60772806 E87 .6 Patient returns on April 29, 2023. Potassium is low at 2.9. Will send prescripti on for potassium 20 mEq daily. Will follow-up labs again next week. Deep venou s thrombosis 976860506 I82.409 Patient developed right lower extremity pain [...] duplex. Mixed anxi ety and depressive disorder 164000134 F41.8 Patient returns on November 23, 2023. [...] reports depression has improved. Atopic conjunctivitis 23 7144311 H10.12 Patient with conjunctiv itis of the left eye. Held Vectibix on December 07, 2023. Continue with current therapy. Will follow up again in 2 weeks. Patient returns on July 25, 2024. She does have conjunctiv itis of the left eye. Will hold Vectibix today. Will follow up. Iron defic iency anemia 80860121 D50.9 Currently receiving infusional iron. Will continue to monitor. Insomnia 903415871 G47.0 0 Patient returns on February 08, 2024. She has had difficulty sleeping for most of her life. She has tried multiple medication s without relief. She is tried Mirtazapin e and lorazepam without improvemen t of insomnia. Discussed trying trazodone instead. Will send prescripti on. Will send prescripti on for Requip for restless legs. Restless legs 23278640 G 25.81 Patient returns on February 08, [...] with diflucan and nystain powder. Generalized rash 2674383 06 R21 Patient returns on May 30, [...] is following with the Coumadin clinic at [facility]. Congestive heart failure 19774374 I50.9 Patient returns on June 27, 2024. Since previous visit patient has been diagnosed with congestive heart failure and atrial fibrillati on. She has started lasix and is following with a cardiologi st. Cachexia 902535845 R64 Patient returns on July 25, 2024. [...] Name 08/01/2024 1 [place] Deshawn Roblero [id number] Deshawn Roblero 08/01/2024 2 [employer] (MEDICARE SUPPLEMENT) Deshawn Roblero [id number] Deshawn Roblero Notes Date Note Type Note Provider Name and Address Organization Details Recorded Time 08/01/2024 text/html 78 yo F returns for evaluation of metastatic colon cancer. Patient recently seen on February 17, 2023 in the emergency room at [facility] with abdominal pain. Patient reported [...] 8.2 hematocrit 29.0. MCV 67.9. Platelet count 436897. Normal cell differential. Low serum folate of [...] with metastatic colorectal cancer. Discussed chemotherapy with [place] based regimen with 5FU Leucovorin if [...] is following with the Coumadin clinic at [facility]. She is scheduled for cardiac MRI. [...] study published in September 2022 in the [place] Journal Medicine of combined Avastin therapy with [place]. Phase 3 trial with median overall survival of 10.8 months in combination therapy verses 7.5 months L[place]urf alone. Progression-free survival 5.6 months versus 2.4 months in L[place]urf alone therapy. Tomy King MD [address] , [place], [address], [place] - [place] - [place] & [place] 08/01/2024 13:08:52 OBGyn Episode No OBEpisode recorded.
--- OUTSIDE RECORDS SUMMARY | 2024-09-23 10:58 | XMS_ITS | Continuity of Care Document ---
Author Organization [facility] Address [address] [place] [address] Care Team Providers Care Teacher Learning Disabled Name Role Phone ADDY GONZALES General Surgeon CARLOS A COATS Primary Care Provider VERONIKA RIVER Pv Design And Installation Technician [phone] Assessment No assessment recorded. Plan of Treatment Reminders Order Date Submit Date Provider Last Modified By Organization Details Last Modified Time Details Appointments None recorded. Lab culture, stool 2024 025 [email or web address] 6 [facility], [address] [place], [address], 5 11:40:08 O&P (ova & parasites), stool 2024 025 [email or web address] 6 [facility], [address] [place], [address], 5 11:40:09 C diff screen, stool, reflex PCR 2024 025 [email or web address] 6 [facility], [address] [place], [address], 5 11:40:09 CBC w/ auto diff 2024 025 ISABEL [facility], [address] [place], [address], 5 16:09:44 CMP, serum or plasma 2024 025 ISABEL [facility], [address], [place], [address], 14:45:24 Referral None recorded. Procedures None recorded. Surgeries None recorded. Imaging None recorded. Medication Orders ondansetron 8 mg disintegrat ing tablet [address] [facility] [id number], [address] [place], [address], 12:29:05 Pepcid 20 mg tablet [address] [facility] [address], [address] [place], [address], 12:29:05 Patient TargetsNo targets recorded. Patient InstructionsNo instructions recorded. Reason for Referral None Reported. Problems Name Problem SNOMED Code Status Onset Date Resolution Date Notes Provider Name and Address Organization Details Recorded Time Headache 16288778 Active 2024 Christine Farfan [place], [place] - [facility] [place] 5 10:27:12 Metastatic malignant neoplasm to liver 05842911 Active 2022 Ghassan Lieberman PA-C [address] , [place], [address] , [place] - [facility] [place] 3 14:27:25 Mass of colon 859221202 Active 2022 Ghassan Lieberman PA-C [address] , [place], [address] , [place] - [facility] [place] 3 14:27:30 Anemia 909832581 Active 2022 Ghassan Lieberman PA-C [address], [place], [address] , [place] - [facility] [place] 3 14:27:36 Nausea and vomiting 79488362 Active 2022 Ghassan Lieberman PA-C [address], [place], [address] , [facility] [place] 3 14:27:46 Unintentional weight loss 453639918 Active [address], [place], [address] , [facility] [place] 3 16:13:07 Night sweats 55017520 Active [address], [place], [address] , [facility] & [place] 3 16:13:12 Problem Notes None recorded. Procedures Surgical History Date Name Laterality Status Provider Name and Address Organization Details Recorded Time 04/29/20 23 Venipuncture completed SANGITA Flores , [place], [address], [facility] [place] 04/27/2023 15:05:29 04/15/20 23 Venipuncture completed Stephanie Maravilla [facility] & [place] 04/15/2023 15:24:55 hysterectomy completed Laurel Samuels [facility] [place] 03/11/2023 15:30:22 extraction of cataract completed Laurel Samuels [facility] [place] 03/11/2023 15:30:36 excision of colon completed Loree Tadeo [facility] [place] 04/21/2023 11:32:07 Imaging Results None recorded. Procedure Notes None recorded. Medical Equipment None Reported. Allergies Allergen ID Allergen Name Allergen Category Reaction Reaction Severity Criticality Documentation Date Start Date Code Code System Note Provider Name and Address Organization Details Recorded Time 45159 tetracycl ine medicatio n hives Not available high 02/19/2023 21852 RxNorm Brandy Maciel paramjit [facility] [place] 3 14:03:33 Medications Name Sig Start Date [...] /min 137 mm[Hg] 86 mm[Hg] Laurel ELIAS [facility] [place] 5 12:09:03 Social History Question Answer Notes LastModified by Organizat ion Details LastModified Time Tobacco Smoking Status Never Smoker Brandy yusuf [facility] [place] 02/19/2023 14:02:59 What Is Your Level Of Alcohol Consumption? None [email or web address] Information not available 02/19/2023 What Is Your Level Of Caffeine Consumption? None [email or web address] Information not available 02/19/2023 What Was The Date Of Your Most Recent Tobacco Screening? 11/23/2023 [email or web address] Information not available 11/23/2023 Do You Use Any Illicit Or Recreational Drugs? No [email or web address] Information not available 02/19/2023 Has Tobacco Cessation Counseling Been Provided? No [email or web address] Information not available 07/13/2023 Do You Or Have You Ever Used Any Other Forms Of Tobacco Or Nicotine? No [email or web address] Information not available 02/19/2023 Sex: Unknown Functional Status None recorded. Mental Status None recorded. Family History Nothing Reported. Medical History No medical history recorded. Gynecological HistoryNo gynecological history recorded. Obstetrics History GPAL:G 0 P 0 0 0 0 Immunizations Vaccine Type Date Status Note Provider Nam e and Address Organization Details Recorded Time pneumococcal polysaccharide PPV23 7 completed Stephanie yusuf CURT [facility] [place] 12/21/2023 09:56:34 Past Encounters Encounter ID Performer Location Encounter Start Date Encounter Closed Date Diagnosis/Indication Diagnosis SNOMED-CT Code Diagnosis ICD10 Code Diagnosis Note [id number] Hanna Snider PA-C [facility] [address] [place] [address] 08/10/2024 09:37:37 08/10/2024 10:29:37 Malignant tumor of ascending colon 873279558 C18.2 CT scan of the abdomen and [...] 8.2 hematocrit 29.0. MCV 67.9. Platelet count 333823. Normal cell differenti al. Low serum folate [...] study published in September 2022 in the [place] [facility] of combined Avastin therapy with [...] liver lesions. Metastatic malignant neoplasm to liver 55335086 C78.7 CT scan of the abdomen and [...] patient is a candidate for radiation Nausea 538233001 R11.0 As needed Zofran and Phenergan prescribed . Discussed trying scopolamin e patches but her insurance wouldn't cover. She is taking Zofran with relief. Pain due t o neoplastic disease 9154923202 9102 G89.3 She is taking hydrocodon e 7.5 mg b.i.d. Discussed taking medication every 4-6 hours as needed. Anemia 504787848 D64.9 Right-side d colon mass concerning for malignancy . Will assess for any signs of iron deficiency . Hemoglobin previously 8.0. Concern for blood loss from colon mass. Patient reports dark stools. Labs on August 10, 2024 with hemoglobin slightly low at 11.9. She is receiving infusional iron as needed. Adopted 530214364 Z62.89 8 Patient is adopted and discussed hereditary gene panel. Patient does have family history of her son having bladder cancer. [facility] hereditary panel sent Antineopla stic chemotherapy regimen 164206916 Z51.11 Week 1 5FU Leucovorin Vectibix on [...] monitor for tolerabili ty and toxicity. Hypokalemia 91673910 E87 .6 Currently taking for potassium 20 mEq daily. Will follow up labs. 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 [...] reports depression has improved. Atopic conjunctivitis 23 7267307 H10.12 Conjunctiv itis due to Vectibix. This is improving. Iron defic iency anemia 39762146 D50.9 Currently receiving infusional iron as needed. Will continue to monitor. Insomnia 702242896 G47.0 0 Patient has had difficulty sleeping for most of her life. She has tried multiple medication s without relief. She is tried Mirtazapin e and lorazepam without improvemen t of insomnia. Discussed trying trazodone instead. Restless legs 23454211 G 25.81 Patient taking Requip for restless legs. Generalized rash 8825630 06 R21 Patient with rash due to Vectibix. This is improving. Atrial fibrillation 4943 6004 I48.91 Patient has been diagnosed with congestive heart failure and atrial fibrillati on. She has been started on Coumadin. She is following with the Coumadin clinic at [facility]. Congestive heart failure 66056842 I50.9 Patient has been diagnosed with congestive heart failure. She has started lasix and is following with a cardiologi . Cachexia 396829616 R64 Patient has had decreased appetite and weight loss. She is drinking nutritiona l supplement s. Discussed appetite stimulant. Patient previously refused. She has started on Megace. Will continue to monitor History of deep vein thrombosis 240862497 Z86.718 Patient developed right lower extremity pain [...] repeat venous duplex. Drug therapy finding 309 987801 Z79.01 She continues on Coumadin due to a fib. She is following with the Coumadin clinic at [facility]. [id number] [facility] [address] [place] [address] 08/25/2024 09:02:23 08/25/2024 09:51:52 Antineoplastic chemotherapy regimen 083465198 Z51.11 Week 1 5FU Leucovorin Vectibix on [...] and toxicity. Malignant tumor of ascending colon 554473487 C18.2 CT scan of the abdomen and [...] 8.2 hematocrit 29.0. MCV 67.9. Platelet count 445082. Normal cell differenti al. Low serum folate [...] study published in September 2022 in the [place] [facility] of combined Avastin therapy with [...] liver lesions. Metastatic malignant neoplasm to liver 37687501 C78.7 CT scan of the abdomen and [...] patient is a candidate for radiation Nausea 505237269 R11.0 As needed Zofran and Phenergan prescribed . Discussed trying scopolamin e patches but her insurance wouldn't cover. She is taking Zofran with relief. Pain due t o neoplastic disease 8425736739 9102 G89.3 She is taking hydrocodon e [...] does take her current medication s Anemia 602763135 D64.9 Right-side d colon mass concerning for malignancy . Will assess for any signs of iron deficiency . Hemoglobin previously 8.0. Concern for blood loss from colon mass. Patient reports dark stools. Labs on August 10, 2024 with hemoglobin slightly low at 11.9. She is receiving infusional iron as needed. Adopted 427078583 Z62.89 8 Patient is adopted and discussed hereditary gene panel. Patient does have family history of her son having bladder cancer. [facility] hereditary panel sent Hypokalemia 69823865 E87 .6 Currently taking for potassium 20 mEq daily. Will follow up labs. Mixed anxi ety and depressive disorder 400740351 F41.8 Patient returns on November 23, 2023. [...] reports depression has improved. Atopic conjunctivitis 23 0442531 H10.12 Conjunctiv itis due to Vectibix. This is improving. Iron defic iency anemia 02173354 D50.9 Receiving infusional iron as needed. Will continue to monitor. Insomnia 538136398 G47.0 0 Patient has had difficulty sleeping for most of her life. She has tried multiple medication s without relief. She is tried Mirtazapin e and lorazepam without improvemen t of insomnia. Discussed trying trazodone instead. Restless legs 29869335 G 25.81 Patient taking Requip for restless legs. Generalized rash 3674547 06 R21 Rash due to Vectibix. This has improved. Atrial fibrillation 4943 6004 I48.91 Patient has been diagnosed with congestive heart failure and atrial fibrillati on. She has been started on Coumadin. She is following with the Coumadin clinic at [facility]. Congestive heart failure 63116988 I50.9 Patient has been diagnosed with congestive heart failure. She has started lasix and is following with a cardiologi st. Cachexia 047428830 R64 Patient has had decreased appetite and weight loss. She is drinking nutritiona l supplement s. Discussed appetite stimulant. Patient previously refused. She has started on Megace. She does not like the taste of Megace. Discussed Megace tablets instead of liquid but patient declines at this time. Will continue to monitor History of deep vein thrombosis 880265769 Z86.718 Patient developed right lower extremity pain [...] repeat venous duplex. Drug therapy finding 309 964486 Z79.01 She continues on Coumadin due to a fib. She is following with the Coumadin clinic at [facility]. Acute post traumatic headache 2467461036 19017 G44.319 Patient returns on August 25, 2024. [...] Internatio nal normalized ratio above reference range 768606371 R79.1 Patient returns on August 25, 2024. She is on Coumadin for atrial fibrillati on and her INR is elevated. She is going to the Coumadin Clinic for management . INR 8 today. She is going to hold Coumadin and contact Coumadin Clinic for directions today. Denies any bleeding at this time. [id number] Hanna Snider PA-C [facility] [address] [place] [address] 09/02/2024 11:29:36 09/02/2024 12:07:33 Antineoplastic chemotherapy regimen 214348340 Z51.11 Week 1 5FU Leucovorin Vectibix on [...] follow up. Malignant tumor of ascending colon 781827352 C18.2 CT scan of the abdomen and [...] 8.2 hematocrit 29.0. MCV 67.9. Platelet count 382953. Normal cell differenti al. Low serum folate [...] study published in September 2022 in the [place] [facility] of combined Avastin therapy with [...] liver lesions. Metastatic malignant neoplasm to liver 86117669 C78.7 CT scan of the abdomen and [...] patient is a candidate for radiation Nausea 884257089 R11.0 As needed Zofran and Phenergan prescribed [...] ons. Pain due t o neoplastic disease 5428846913 9102 G89.3 She is taking hydrocodon e [...] tab po every 3-4 hours instead. Anemia 438829207 D64.9 Right-side d colon mass concerning for malignancy . Will assess for any signs of iron deficiency . Hemoglobin previously 8.0. Concern for blood loss from colon mass. Patient reports dark stools. Labs on August 10, 2024 with hemoglobin slightly low at 11.9. She is receiving infusional iron as needed. Adopted 509395308 Z62.89 8 Patient is adopted and discussed hereditary gene panel. Patient does have family history of her son having bladder cancer. [facility] hereditary panel sent Hypokalemia 59245206 E87 .6 Currently taking for potassium 20 mEq daily. Will follow up labs. Mixed anxi ety and depressive disorder 211746166 F41.8 Patient returns on November 23, 2023. [...] reports depression has improved. Atopic conjunctivitis 23 8303746 H10.12 Conjunctiv itis due to Vectibix. This is improving. Iron defic iency anemia 92384994 D50.9 Receiving infusional iron as needed. Will continue to monitor. Insomnia 333884907 G47.0 0 Patient has had difficulty sleeping for most of her life. She has tried multiple medication s without relief. She is tried Mirtazapin e and lorazepam without improvemen t of insomnia. Discussed trying trazodone instead. Restless legs 40095713 G 25.81 Patient taking Requip for restless legs. Generalized rash 1133157 06 R21 Rash due to Vectibix. This has improved. Atrial fibrillation 4943 6004 I48.91 Patient has been diagnosed with congestive heart failure and atrial fibrillati on. She has been started on Coumadin. She is following with the Coumadin clinic at [facility]. Congestive heart failure 91484101 I50.9 Patient has been diagnosed with congestive heart failure. She has started lasix and is following with a cardiologi st. Cachexia 384710313 R64 Patient has had decreased appetite and weight loss. She is drinking nutritiona l supplement s. Discussed appetite stimulant. Patient previously refused. She has started on Megace. She does not like the taste of Megace. Discussed Megace tablets instead of liquid but patient declines at this time. Will continue to monitor History of deep vein thrombosis 379073350 Z86.718 Patient developed right lower extremity pain [...] repeat venous duplex. Drug therapy finding 309 271540 Z79.01 She continues on Coumadin due to a fib. She is following with the Coumadin clinic at [facility]. Internatio nal normalized ratio above reference range 093886125 R79.1 Patient returns on August 25, 2024. She is on Coumadin for atrial fibrillati on and her INR is elevated. She is going to the Coumadin Clinic for management . INR 8 today. She is going to hold Coumadin and contact Coumadin Clinic for directions today. Denies any bleeding at this time. Diarrhea 05358418 R19.7 Patient with increased diarrhea, nausea, and vomiting for the past 4 days. She is taking Imodium and Lomotil without relief. She has a history of C diff. Will order stool studies today. Will check stool for C diff today. Dehydration 79920082 E86 .0 Patient returns on September 02, [...] Name 09/02/2024 1 [place] Vicky Roblero [id number] Vicky Roblero 09/02/2024 2 [employer] (MEDICARE SUPPLEMENT) Vicky Roblero [id number] Vicky Roblero Notes Date Note Type Note Provider Name and Address Organization Details Recorded Time 09/02/2024 text/html 78 yo F returns for evaluation of metastatic colon cancer. Patient recently seen on February 17, 2023 in the emergency room at [facility] with abdominal pain. Patient reported [...] 8.2 hematocrit 29.0. MCV 67.9. Platelet count 999261. Normal cell differential. Low serum folate of [...] with metastatic colorectal cancer. Discussed chemotherapy with [place] based regimen with 5FU Leucovorin if [...] is following with the Coumadin clinic at [facility]. She is scheduled for [...] study published in September 2022 in the [place] [facility] of combined Avastin therapy with [...] cycle. Will follow up. Hanna Snider PA-C [address], [place], [address], [facility] - [facility] - [place] [facility] [place] 09/02/2024 12:55:35 OBGyn Episode No OBEpisode recorded.
[2024-09-23 11:14] LABS: PHA INR Fingerstick 1.7 (0.9-1.1)
== END 2024-09-23 11:17 ==
PROVIDERS: PCP Nurse Practitioner Family; Visit Provider Physician Assistant
DX: Z79.01 Long term (current) use of anticoagulants (principal); I48.91 Unspecified atrial fibrillation
CPT/HCPCS: 85610; 99211; G0463

== ENCOUNTER 2024-10-05 10:44 | Outpatient (CLI) | payer MEDICARE, SELFPAY ==
--- OUTSIDE RECORDS SUMMARY | 2024-10-05 10:47 | XMS_ITS | Continuity of Care Document ---
Author Organization [facility] Address [address] [place] [address] Care Team Providers Care Train Controller Name Role Phone ADDY GONZALES General Surgeon CARLOS A COATS Primary Care Provider [phone] VERONIKA RIVER Perinatal Specialist [phone] Assessment No assessment recorded. Plan of Treatment Reminders Order Date Submit Date Provider Last Modified By Organization Details Last Modified Time Details Appointments None recorded. Lab CBC w/ auto diff 2024 025 [facility], [address] , [place], [address], 5 09:46:31 CMP, serum or plasma 2024 025 [facility], [address] [place], [address], 5 09:39:00 carcinoembr yonic Ag, quant, serum or plasma 2024 025 [email or web address] [facility], [address] [place], [address], 5 09:16:06 Referral None recorded. Procedures None recorded. Surgeries None recorded. Imaging CT, head + brain, w/o contrast 2024 025 [facility] (Centralized Scheduling), [address] [place], [address], 5 09:16:16 Medication Orders None recorded. Patient TargetsNo targets recorded. Patient InstructionsNo instructions recorded. Reason for Referral None Reported. 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 Legall y authen ticate d by VAMSHI HALL 0 07-28 15:46: 13 CC'ed Logic: Orderi ng Provid er: DIGNA LUGO Attend ing Provid er: DIGNA LUGO Referr ing Provid er: DIGNA LUGO Admitt ing Provid er: DIGNA taylor[address] [place] [address] - Physical Therapy [address] [place] [address], [place], [address], 07/29/2024 11:36:27 08/02/19 25 07/28/2024 CT, chest , w/ contr ast [facility] [address] [place] [address] Phone: Fax: Name: DESHAWN MCMAHAN Exam Date: : 948 Age 78 years Gender : F Access ion: [id number] 2023 Physic jesus: [facility] Facili ty: [facility] Facili ty HSV: Outpat ient Exam: [...] Thank you for referr DESHAWN Delgado to [facility]. Legall y authen ticate d by AVIS ALBA IN 07-28 15:46: 34 CC'ed Logic: Orderi ng Provid er: DIGNA LUGO Attend ing Provid er: DIGNA LUGO Referr ing Provid er: DIGNA LUGO Admitt ing Provid er: DGINA LUGO [email or web address] [facility] - Physical Therapy [address], [place], [address], 08/01/2024 10:49:34 Result Notes None recorded. Problems Name Problem SNOMED Code Status Onset Date Resolution Date Notes Provider Name and Address Organization Details Recorded Time Headache 95050028 Active 2024 Christine Farfan [facility], [place] - [facility] - [place] & [place] 5 10:27:12 Metastatic malignant neoplasm to liver 06461181 Active 2022 Ghassan Lieberman PA-C [address], [place], [address] , [place] - [facility] - [place] & [place] 3 14:27:25 Mass of colon 105174908 Active 2022 Ghassan Lieberman PA-C [address], [place], [address] , [place] - [facility] - [place] & [place] 3 14:27:30 Anemia 405766692 Active 2022 Ghassan Lieberman PA-C [address], [place], [address] , [place] - [facility] - [place] & [place] 3 14:27:36 Nausea and vomiting 43900824 Active 2022 Ghassan Lieberman PA-C [address], [place], [address] , [place] - [facility] & [place] 3 14:27:46 Unintentional weight loss 552037517 Active 2022 Ghassan Lieberman PA-C [address], [place], [address] , [facility] & [place] 3 16:13:07 Night sweats 83905049 Active [address], [place], [address] , [facility] & [place] 3 16:13:12 Problem Notes None recorded. Procedures Surgical History Date Name Laterality Status Provider Name and Address Organization Details Recorded Time 04/29/20 23 Venipuncture completed [address], [place], [address], [facility] & [place] 04/27/2023 15:05:29 04/15/20 23 Venipuncture completed Stephanie Maravilla [facility] & [place] 04/15/2023 15:24:55 hysterectomy completed Laurel Samuels [facility] & [place] 03/11/2023 15:30:22 extraction of cataract completed Laurelesvin Samuels [facility] & [place] 03/11/2023 15:30:36 excision of colon completed Loree Tadeo [facility] & [place] 04/21/2023 11:32:07 Imaging Results None recorded. Procedure Notes None recorded. Medical Equipment None Reported. Allergies Allergen ID Allergen Name Allergen Category Reaction Reaction Severity Criticality Documentation Date Start Date Code Code System Note Provider Name and Address Organization Details Recorded Time 85186 tetracycl ine medicatio n hives Not available high 02/19/2023 28970 RxNorm [email or web address] & [place] 3 14:03:33 Medications Name Sig Start Date Stop Date Status Note LastModified by Organization Details LastModified Time Miralax 17 gram oral powder packet Take 5 packets every day by oral route. active Not Available Not Available No t Available furosemide 40 mg tablet TAKE ONE TABLET BY MOUTH EVERY DAY active Not [...] completed Not Available Not Available Not Available Dilaudid 2 mg tablet Take 1 tablet every 4-6 hours by oral route as needed. 2024 active Not Available Not Available Not Avai lable famotidine 10 mg tablet Take 1 tablet [...] Available ondansetron HCl 4 mg tablet TAKE 2 TABLETS BY MOUTH EVERY 6 HOURS NEEDED FOR NAUSEA FOR UP TO 10 DAYS. active Not Available Not Available No t Available warfarin 2.5 mg tablet TAKE 1 [...] Not Available warfarin 5 mg tablet TAKE 1/2 TABLET BY MOUTH EVERY DAY AT 11am FOR 10 DAYS active Not Available Not Available No t Available folic acid 1 mg tablet TAKE 1 TABLET BY MOUTH EVERY DAY 2023 active Not Available Not Available Not Avai lable furosemide 20 mg tablet TAKE 1 TABLET BY MOUTH EVERY DAY active Not Available Not Available No t Available mirtazapine 15 mg tablet TAKE 1 [...] Not Available Not Available No t Available enoxaparin 100 mg/mL subcutaneou s syringe INJECT 95 MG (0.95 ML) SUBCUTANE OUSLY EVERY TWELVE HOURS FOR 10 DAYS active Not Available Not Available No t [...] Updated DateTime 5 162.56 cm 35.2 kg/m2 61252.4 4 g 97.5 [degF] 98 % 98 % 20 /min 83 /min 140 mm[Hg] 68 mm[Hg] Laurel Samuels [facility] & [place] 5 09:42:28 Social History Question Answer Notes LastModified by Organizat ion Details LastModified Time Tobacco Smoking Status Never Smoker Brandy Lewisdwell [facility] & [place] 02/19/2023 14:02:59 What Is Your Level Of Alcohol Consumption? None [email or web address] Information not available 02/19/2023 What Is Your Level Of Caffeine Consumption? None [email or web address] Information not available 02/19/2023 What Was The Date Of Your Most Recent Tobacco Screening? 11/23/2023 [email or web address] Information not available 11/23/2023 Do You Use Any Illicit Or Recreational Drugs? No [email or web address] Information not available 02/19/2023 Has Tobacco Cessation Counseling Been Provided? No [email or web address] Information not available 07/13/2023 Do You Or Have You Ever Used Any Other Forms Of Tobacco Or Nicotine? No [email or web address] Information not available 02/19/2023 Sex: Unknown Functional Status None recorded. Mental Status None recorded. Family History Nothing Reported. Medical History No medical history recorded. Gynecological HistoryNo gynecological history recorded. Obstetrics History GPAL:G 0 P 0 0 0 0 Immunizations Vaccine Type Date Status Note Provider Nam e and Address Organization Details Recorded Time pneumococcal polysaccharide PPV23 7 completed Stephanie Maravilla [facility], [place] - [facility] - [place] & [place] 12/21/2023 09:56:34 Past Encounters Encounter ID Performer Location Encounter Start Date Encounter Closed Date Diagnosis/Indication Diagnosis SNOMED-CT Code Diagnosis ICD10 Code Diagnosis Note [id number] Tomy King MD [facility] [address] [place] [address] 08/01/2024 11:10:37 08/01/2024 12:30:43 Malignant tumor of ascending colon 442509304 C18.2 CT scan of the abdomen and [...] 8.2 hematocrit 29.0. MCV 67.9. Platelet count 719019. Normal cell differenti al. Low serum folate [...] study published in September 2022 in the [place] [facility] of combined Avastin therapy with [...] Will follow-up Metastatic malignant neoplasm to liver 32391680 C78.7 CT scan of the abdomen and [...] Findings concerning for metastatic colon cancer. Nausea 007673169 R11.0 As needed Zofran and Phenergan prescribed . Discussed trying scopolamin e patches but her insurance wouldn't cover. She is taking Zofran with relief. Pain due t o neoplastic disease 0707453921 9102 G89.3 She is taking hydrocodon e 7.5 mg b.i.d. Discussed taking medication every 4-6 hours as needed. Anemia 675711068 D64.9 Right-side d colon mass concerning for malignancy . Will assess for any signs of iron deficiency . Hemoglobin previously 8.0. Concern for blood loss from colon mass. Patient reports dark stools. labs on July 25, 2024 with improvemen t of hemoglobin 12.6. Patient is currently receiving infusional iron. Adopted 406931040 Z62.89 8 Patient is adopted and discussed hereditary gene panel. Patient does have family history of her son having bladder cancer. Will send [facility] hereditary panel. Antineopla stic chemotherapy regimen 501489671 Z51.11 Week 1 5FU Leucovorin Vectibix on [...] 2024 due to disease progressio n. Hypokalemia 62852243 E87 .6 Patient returns on April 29, 2023. Potassium is low at 2.9. Will send prescripti on for potassium 20 mEq daily. Will follow-up labs again next week. Deep venou s thrombosis 846899768 I82.409 Patient developed right lower extremity pain [...] duplex. 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 [...] reports depression has improved. Atopic conjunctivitis 23 0354345 H10.12 Patient with conjunctiv itis of the left eye. Held Vectibix on December 07, 2023. Continue with current therapy. Will follow up again in 2 weeks. Patient returns on July 25, 2024. She does have conjunctiv itis of the left eye. Will hold Vectibix today. Will follow up. Iron defic iency anemia 82975028 D50.9 Currently receiving infusional iron. Will continue to monitor. Insomnia 410533091 G47.0 0 Patient returns on February 08, 2024. She has had difficulty sleeping for most of her life. She has tried multiple medication s without relief. She is tried Mirtazapin e and lorazepam without improvemen t of insomnia. Discussed trying trazodone instead. Will send prescripti on. Will send prescripti on for Requip for restless legs. Restless legs 46083316 G 25.81 Patient returns on February 08, [...] with diflucan and nystain powder. Generalized rash 2361060 06 R21 Patient returns on May 30, [...] [facility]. Congestive heart failure 53813719 I50.9 Patient returns on June 27, 2024. Since previous visit patient has been diagnosed with congestive heart failure and atrial fibrillati on. She has started lasix and is following with a cardiologi . Cachexia 036148539 R64 Patient returns on July 25, 2024. Patient has had decreased appetite. Continues to lose weight. She has lost 4 more lbs since previous visit. She is drinking nutritiona l supplement s. Discussed appetite stimulant. Patient previously refused. Now she is agreeable to try Megace. Will send prescripti on. Will follow up for angela oakley [id number] Parish Snider PA-C [facility] [address] [place] [address] 08/10/2024 09:37:37 08/10/2024 10:29:37 Malignant tumor of ascending colon 916343972 C18.2 CT scan of the abdomen and [...] 8.2 hematocrit 29.0. MCV 67.9. Platelet count 124653. Normal cell differenti al. Low serum folate [...] . No new sites of disease. Unfortunat forilan patient with disease progressio n on recent [...] study published in September 2022 in the [place] [facility] of combined Avastin therapy with [...] liver lesions. Metastatic malignant neoplasm to liver 36628738 C78.7 CT scan of the abdomen and [...] patient is a candidate for radiation Nausea 107039907 R11.0 As needed Zofran and Phenergan prescribed . Discussed trying scopolamin e patches but her insurance wouldn't cover. She is taking Zofran with relief. Pain due t o neoplastic disease 2102253094 9102 G89.3 She is taking hydrocodon e 7.5 mg b.i.d. Discussed taking medication every 4-6 hours as needed. Anemia 104004197 D64.9 Right-side d colon mass concerning for malignancy . Will assess for any signs of iron deficiency . Hemoglobin previously 8.0. Concern for blood loss from colon mass. Patient reports dark stools. Labs on August 10, 2024 with hemoglobin slightly low at 11.9. She is receiving infusional iron as needed. Adopted 271111342 Z62.89 8 Patient is adopted and discussed hereditary gene panel. Patient does have family history of her son having bladder cancer. [facility] hereditary panel sent Antineopla stic chemotherapy regimen 880458293 Z51.11 Week 1 5FU Leucovorin Vectibix on [...] monitor for tolerabili ty and toxicity. Hypokalemia 27730158 E87 .6 Currently taking for potassium 20 mEq daily. Will follow up labs. Mixed anxi ety and depressive disorder 966135459 F41.8 Patient returns on November 23, 2023. [...] Patient reports depression has improved. Atopic conjunctivitis 9717725 H10.12 Conjunctiv itis due to Vectibix. This is improving. Iron defic iency anemia 72806584 D50.9 Currently receiving infusional iron as needed. Will continue to monitor. Insomnia 068746887 G47.0 0 Patient has had difficulty sleeping for most of her life. She has tried multiple medication s without relief. She is tried Mirtazapin e and lorazepam without improvemen t of insomnia. Discussed trying trazodone instead. Restless legs 83272181 G 25.81 Patient taking Requip for restless legs. Generalized rash 3708665 06 R21 Patient with rash due to Vectibix. This is improving. Atrial fibrillation 4943 6004 I48.91 Patient has been diagnosed with congestive heart failure and atrial fibrillati on. She has been started on Coumadin. She is following with the Coumadin clinic at [facility]. Congestive heart failure 95266209 I50.9 Patient has been diagnosed with congestive heart failure. She has started lasix and is following with a cardiologi st. Cachexia 194921538 R64 Patient has had decreased appetite and weight loss. She is drinking nutritiona l supplement s. Discussed appetite stimulant. Patient previously refused. She has started on Megace. Will continue to monitor History of deep vein thrombosis 584103543 Z86.718 Patient developed right lower extremity pain [...] repeat venous duplex. Drug therapy finding 309 806714 Z79.01 She continues on Coumadin due to a fib. She is following with the Coumadin clinic at [facility]. [id number] Parish Snider PA-C [facility] [address] [place] [address] 08/25/2024 09:02:23 08/25/2024 09:51:52 Antineoplastic chemotherapy regimen 339632979 Z51.11 Week 1 5FU Leucovorin Vectibix on [...] and toxicity. Malignant tumor of ascending colon 183719004 C18.2 CT scan of the abdomen and [...] 8.2 hematocrit 29.0. MCV 67.9. Platelet count 448313. Normal cell differenti al. Low serum folate [...] study published in September 2022 in the [place] [facility] of combined Avastin therapy with [...] liver lesions. Metastatic malignant neoplasm to liver 03792252 C78.7 CT scan of the abdomen and [...] patient is a candidate for radiation Nausea 381737885 R11.0 As needed Zofran and Phenergan prescribed . Discussed trying scopolamin e patches but her insurance wouldn't cover. She is taking Zofran with relief. Pain due t o neoplastic disease 5751745947 9102 G89.3 She is taking hydrocodon e [...] does take her current medication s Anemia 098080430 D64.9 Right-side d colon mass concerning for malignancy . Will assess for any signs of iron deficiency . Hemoglobin previously 8.0. Concern for blood loss from colon mass. Patient reports dark stools. Labs on August 10, 2024 with hemoglobin slightly low at 11.9. She is receiving infusional iron as needed. Adopted 065868072 Z62.89 8 Patient is adopted and discussed hereditary gene panel. Patient does have family history of her son having bladder cancer. [facility] hereditary panel sent Hypokalemia 68294291 E87 .6 Currently taking for potassium 20 mEq daily. Will follow up labs. Mixed anxi ety and depressive disorder 229420539 F41.8 Patient returns on November 23, 2023. [...] reports depression has improved. Atopic conjunctivitis 23 4016221 H10.12 Conjunctiv itis due to Vectibix. This is improving. Iron defic iency anemia 69478756 D50.9 Receiving infusional iron as needed. Will continue to monitor. Insomnia 788248698 G47.0 0 Patient has had difficulty sleeping for most of her life. She has tried multiple medication s without relief. She is tried Mirtazapin e and lorazepam without improvemen t of insomnia. Discussed trying trazodone instead. Restless legs 70337038 G 25.81 Patient taking Requip for restless legs. Generalized rash 2205200 06 R21 Rash due to Vectibix. This has improved. Atrial fibrillation 4943 6004 I48.91 Patient has been diagnosed with congestive heart failure and atrial fibrillati on. She has been started on Coumadin. She is following with the Coumadin clinic at [facility]. Congestive heart failure 09491949 I50.9 Patient has been diagnosed with congestive heart failure. She has started lasix and is following with a cardiologi st. Cachexia 793552683 R64 Patient has had decreased appetite and weight loss. She is drinking nutritiona l supplement s. Discussed appetite stimulant. Patient previously refused. She has started on Megace. She does not like the taste of Megace. Discussed Megace tablets instead of liquid but patient declines at this time. Will continue to monitor History of deep vein thrombosis 563460079 Z86.718 Patient developed right lower extremity pain [...] repeat venous duplex. Drug therapy finding 309 720142 Z79.01 She continues on Coumadin due to a fib. She is following with the Coumadin clinic at [facility]. Acute post traumatic headache 7818942783 17663 G44.319 Patient returns on August 25, 2024. [...] Internatio nal normalized ratio above reference range 638932544 R79.1 Patient returns on August 25, 2024. [...] Name 08/25/2024 1 [place] Deshawn Roblero [id number] Deshawn Roblero 08/25/2024 2 [employer] (MEDICARE SUPPLEMENT) Deshawn Roblero [id number] Deshawn Roblero Notes Date Note Type Note Provider Name and Address Organization Details Recorded Time 08/25/2024 text/html 78 yo F returns for evaluation of metastatic colon cancer. Patient recently seen on February 17, 2023 in the emergency room at [facility] with abdominal pain. Patient reported epigastric [...] 8.2 hematocrit 29.0. MCV 67.9. Platelet count 468111. Normal cell differential. Low serum folate of [...] with metastatic colorectal cancer. Discussed chemotherapy with [place] based regimen with 5FU Leucovorin if [...] study published in September 2022 in the [place] [facility] of combined Avastin therapy with [...] for tolerability and toxicity. Parish Snider PA-C [address], [place], [address], [facility] - [place] - [place] & [place] 08/25/2024 10:43:13 OBGyn Episode No OBEpisode recorded.
--- OUTSIDE RECORDS SUMMARY | 2024-10-05 10:48 | XMS_ITS | Data Portability ---
Author Organization [facility] & BERNIE Gurerero ADMIN Address [address] [place] [id number] Care Team Providers Care Pharmacy Manager Name Role Phone ADDY GONZALES General Surgeon CARLOS A COATS Primary Care Provider VERONIKA RIVER Fueler Assessment No assessment recorded. Plan of Treatment Reminders Order Date Submit Date Provider Last Modified By Organization Details Last Modified Time Details Appointments None recorded. Lab culture, stool 2024 025 [email or web address], [address] [place], [address], 5 11:40:08 O&P (ova & parasites), stool 2024 025 [facility], [address] [place], [address], 5 11:40:09 C diff screen, stool, reflex PCR 2024 025 [email or web address], [address] [place], [address], 5 11:40:09 CBC w/ auto diff 2024 025 [facility], [address] [place], [address], 5 16:09:44 CMP, serum or plasma 2024 025 [facility], [address] [place], [address], 5 14:45:24 CBC w/ auto diff 2024 025 [facility], [address] [place], [address], 5 09:46:31 CMP, serum or plasma 2024 025 [facility], [address] [place], [address], 5 09:39:00 carcinoembr yonic Ag, quant, serum or plasma 2024 025 [email or web address], [address] [place], [address], 5 09:16:06 carcinoembr yonic Ag, quant, serum or plasma 2024 025 [email or web address] 6 [facility], [address] [place], [address], 5 09:07:03 CMP, serum or [facility]24 [email or web address] [address] [place], [address], 5 11:45:06 CBC w/ diff 2024 025 [email or web address] 6 [facility], [address] [place], [address], 5 09:07:03 Referral radiation oncologist referral 2024 025 [email or web address] 6 Mary Valencia MD, [address] [place], [address], 5 08:24:10 Procedures None recorded. Surgeries None recorded. Imaging CT, head + brain, w/o contrast 2024 025 [facility] [address], [place], [address], 09:16:16 Medication Orders ondansetron 8 mg disintegrat ing tablet [address] [facility], [address] [place], [address], 5 12:29:05 Pepcid 20 mg tablet [address] [facility] [address], [address] [place], [address], 5 12:29:05 megestrol 400 mg/10 mL (40 mg/mL) oral suspension 2024 025 7 [facility], [address] [place], [address], 5 11:59:15 megestrol 400 mg/10 mL (40 mg/mL) oral suspension [address] [facility] [address], [address] [place], [address], 5 11:45:06 Patient TargetsNo targets recorded. Patient InstructionsNo instructions recorded. Reason for Referral Referring Physician: Hanna Snider, Hematology/Oncology, Encounter Date: 08/10/2024 Results Created Date Observation Date Name Description Value Unit Range Abnormal Flag Note LastModifiedBy Organization Detail LastModifiedTime 06/27/1906/27/2024 CBC AUTO W DIFF WBC 10.0 K/uL 4.0-10 .5 Not Available [facility] [address], [place], [address], 06/27/2024 10:19:00 06/27/1906/2706/27/2024 CBC AUTO W DIFF RBC 4.0 M/mm3 4.2-6. 4 low Not Available [facility] ([facility]) [address] , [place], [address], 06/27/2024 10:19:00 06/27/19 25 06/27/2024 CBC AUTO W DIFF HGB 11.5 gm/dL 12.5-1 6.0 low Not Available [facility] ([facility]) [address] , [place], [address], 06/27/2024 10:19:00 06/27/19 25 06/27/2024 CBC AUTO W DIFF HCT 36.0 % 37.0-4 7.0 low Not Available [facility] ([facility]) [address] , [place], [address], 06/27/2024 10:19:00 06/27/19 25 06/27/2024 CBC AUTO W DIFF MCV 91.1 fL 78-100 Not Available [facility] ([facility]) [address] , [place], [address], 06/27/2024 10:19:00 06/27/19 25 06/27/2024 CBC AUTO W DIFF MCH 29.1 pg 27-31 Not Available [facility] ([facility]) [address] , [place], [address], 06/27/2024 10:19:00 06/27/19 25 06/27/2024 CBC AUTO W DIFF MCHC 31.9 g/dL 32-36 low Not Available [facility] ([facility]) [address] [place], [address], 06/27/2024 10:19:00 06/27/19 25 06/27/2024 CBC AUTO W DIFF RDW 15.9 % 11.5-1 4.0 high Not Available [facility] ([facility]) [address] [place], [address], 06/27/2024 10:19:00 06/27/19 25 06/27/2024 CBC AUTO W DIFF platelet count 311 K/uL 150-45 0 Not Available [facility] ([facility]) [address], [place], [address], 06/27/2024 10:19:00 06/27/19 25 06/27/2024 CBC AUTO W DIFF MPV 9.1 fL 6-9.5 Not Available [facility] ([facility]) [address], [place], [address], 06/27/2024 10:19:00 06/27/19 25 06/27/2024 CBC AUTO W DIFF neutrophil% 70.9 % 43-65 high Not Available [facility] ([facility]) [address], [place], [address], 06/27/2024 10:19:00 06/27/19 25 06/27/2024 CBC AUTO W DIFF lymphocyte% 13.3 % 20.5-4 5.5 low Not Available [facility] ([facility]) [address] [place], [address], 06/27/2024 10:19:00 06/27/19 25 06/27/2024 CBC AUTO W DIFF monocyte% 7.2 % 5.5-11 .7 Not Available [facility] ([facility]) [address] [place], [address], 06/27/2024 10:19:00 06/27/19 25 06/27/2024 CBC AUTO W DIFF eosinophil% 7.4 % 0.9-2. 9 high Not Available [facility] ([facility]) [address] [place], [address], 06/27/2024 10:19:00 06/27/19 25 06/27/2024 CBC AUTO W DIFF basophil% 0.8 % 0.2-1. 0 Not Available [facility] ([facility]) [address], [place], [address], 06/27/2024 10:19:00 06/27/19 25 06/27/2024 CBC AUTO W DIFF immature granulocytes % 0.4 % 0.0-0. 8 Not Available [facility] ([facility]) [address] [facility], [place], [address], 06/27/2024 10:19:00 06/27/19 25 06/27/2024 CBC AUTO W DIFF nucleated red blood cells % 0.0 % Not Available [facility] ([facility]) [address] [facility], [place], [address], 06/27/2024 10:19:00 06/27/19 25 06/27/2024 CBC AUTO W DIFF neutrophil# 7.1 K/uL 2.2-4. 8 high Not Available [facility] ([facility]) [address] [facility], [place], [address], 06/27/2024 10:19:00 06/27/19 25 06/27/2024 CBC AUTO W DIFF lymphocyte# 1.3 cell/ mcL 1.3-2. 9 Not Available [facility] ([facility]) [address] [facility], [place], [address], 06/27/2024 10:19:00 06/27/19 25 06/27/2024 CBC AUTO W DIFF monocyte# 0.7 cell/ mcL 0.3-0. 8 Not Available [facility] ([facility]) [address] [place], [address], 06/27/2024 10:19:00 06/27/19 25 06/27/2024 CBC AUTO W DIFF eosinophil# 0.7 cell/ mcL 0-0.2 high Not Available [facility] ([facility]) [address] [place], [address], 06/27/2024 10:19:00 06/27/19 25 06/27/2024 CBC AUTO W DIFF basophil# 0.1 cell/ mcL 0.0-1. 0 Not Available [facility] ([facility]) [address] , [place], [address], 06/27/2024 10:19:00 06/27/19 25 06/27/2024 CBC AUTO W DIFF immature gramulocytes # 0.04 K/uL Not Available [facility] ([facility]) [address], [place], [address], 06/27/2024 10:19:00 06/27/19 25 06/27/2024 CBC AUTO W DIFF nucleated red blood cells # 0.00 K/uL Not Available [facility] ([facility]) [address], [place], [address], 06/27/2024 10:19:00 06/27/19 25 06/27/2024 CBC AUTO W DIFF manual differential NO Not Available [facility] ([facility]) [address], [place], [address], 06/27/2024 10:19:00 06/27/19 25 06/27/2024 PT (PROT HROMB IN TIME) W INR prothrombin time 34.6 secon ds 9.3-11 .4 high Not Available [facility] ([facility]) [address], [place], [address], 06/27/2024 10:32:54 06/27/19 25 06/27/2024 PT (PROT [...] Mecha nical Heart Valve s Not Available [facility] ([facility]) [address] [place], [address], 06/27/2024 10:32:54 06/27/19 25 06/27/2024 COMP METAB OLIC PANEL sodium 140 mmol/ L 136-14 5 Not Available [facility] ([facility]) [address] [facility], [place], [address], 06/27/2024 10:33:59 06/27/19 25 06/27/2024 COMP METAB OLIC PANEL potassium 3.3 mmol/ L 3.6-5. 0 low Not Available [facility] ([facility]) [address] [facility], [place], [address], 06/27/2024 10:33:59 06/27/19 25 06/27/2024 COMP METAB OLIC PANEL chloride 100 mmol/ L 98-107 Not Available [facility] ([facility]) [address] [place], [address], 06/27/2024 10:33:59 06/27/19 25 06/27/2024 COMP METAB OLIC PANEL carbon dioxide 33.1 mmol/ L 21.0-3 2.0 high Not Available [facility] ([facility]) [address] [place], [address], 06/27/2024 10:33:59 06/27/19 25 06/27/2024 COMP METAB OLIC PANEL anion gap 10.2 Not Available [facility] ([facility]) [address] [place], [address], 06/27/2024 10:33:59 06/27/19 25 06/27/2024 COMP METAB OLIC PANEL glucose 151 mg/dL 70-120 high Not Available [facility] ([facility]) [address] [place], [address], 06/27/2024 10:33:59 06/27/19 25 06/27/2024 COMP METAB OLIC PANEL BUN 15 mg/dL 7-18 Not Available [facility] ([facility]) [address], [place], [address], 06/27/2024 10:33:59 06/27/19 25 06/27/2024 COMP METAB OLIC PANEL creatinine 1.0 mg/dL 0.6-1. 3 Not Available [facility] ([facility]) [address], [place], [address], 06/27/2024 10:33:59 06/27/19 25 06/27/2024 COMP METAB [...] albrecht ing kiney funct ion. Not Available [facility] ([facility]) [address] , [place], [address], 06/27/2024 10:33:59 06/27/19 25 06/27/2024 COMP METAB OLIC PANEL total protein 6.9 g/dL 6.4-8. 2 Not Available [facility] ([facility]) [address] , [place], [address], 06/27/2024 10:33:59 06/27/19 25 06/27/2024 COMP METAB OLIC PANEL albumin 3.0 g/dL 3.4-5. 0 low Not Available [facility] ([facility]) [address] , [place], [address], 06/27/2024 10:33:59 06/27/19 25 06/27/2024 COMP METAB OLIC PANEL globulin 3.9 Not Available [facility] ([facility]) [address] , [place], [address], 06/27/2024 10:33:59 06/27/19 25 06/27/2024 COMP METAB OLIC PANEL alb/glob ratio 0.8 0.7-2 Not Available [facility] ([facility]) [address] , [place], [address], 06/27/2024 10:33:59 06/27/19 25 06/27/2024 COMP METAB OLIC PANEL calcium 9.2 mg/dL 8.5-10 .5 Not Available [facility] ([facility]) [address], [place], [address], 06/27/2024 10:33:59 06/27/19 25 06/27/2024 COMP METAB OLIC PANEL bilirubin total 0.70 mg/dL 0.10-1 .00 Not Available [facility] ([facility]) [address], [place], [address], 06/27/2024 10:33:59 06/27/19 25 06/27/2024 COMP METAB OLIC PANEL AST (SGOT) 41 U/L 0-37 high Not Available [facility] ([facility]) [address], [place], [address], 06/27/2024 10:33:59 06/27/19 25 06/27/2024 COMP METAB OLIC PANEL ALT (SGPT) 15 U/L 0-65 Not Available [facility] ([facility]) [address] [place], [address], 06/27/2024 10:33:59 06/27/19 25 06/27/2024 COMP METAB OLIC PANEL alk phosphatase 217 U/L 46-116 high Not Available [facility] ([facility]) [address] [facility] [place] [address], 06/27/2024 10:33:59 06/27/19 25 06/27/2024 MAGNE SIUM magnesium 2.2 mg/dL 1.8-2. 4 Not Available [facility] ([facility]) [address] [facility], [place], [address], 06/27/2024 10:34:02 06/27/19 25 06/27/2024 IRON STUDY (IRON /TIBC /%SAT ) iron 24 mcg/m L 40-180 low Not Available [facility] ([facility]) [address] [facility], [place], [address], 06/27/2024 11:58:15 06/27/19 25 06/27/2024 IRON STUDY (IRON /TIBC /%SAT ) TIBC 230 mcg/d L 250-45 0 low Not Available [facility] ([facility]) [address] [facility], [place], [address], 06/27/2024 11:58:15 06/27/19 25 06/27/2024 IRON STUDY (IRON /TIBC /%SAT ) %sat 10 15-55 low Not Available [facility] ([facility]) [address] [facility], [place], [address], 06/27/2024 11:58:15 06/27/19 25 06/27/2024 JUAN A TIN ferritin, serum 458 NG/mL 3-244 high Not Available [facility] ([facility]) [address] [place], [address], 06/27/2024 12:21:28 06/27/19 25 06/28/2024 CEA cea [...] t be inter prete d as absol cowlitz evide nce of the prese nce or absen ce of [facility] se. Perfo rmed at: - [facility] [address] [id number] Lab Direc tor: Tate staton PhD, Phone : [phone] Not Available [facility] ([facility]) [address] [facility], [place], [address], 06/28/2024 13:09:29 07/11/19 25 07/11/2024 CBC AUTO W DIFF WBC 6.9 K/uL 4.0-10 .5 Not Available [facility] ([facility]) [address] [facility], [place], [address], 07/11/2024 10:30:50 07/11/19 25 07/11/2024 CBC AUTO W DIFF RBC 3.8 M/mm3 4.2-6. 4 low Not Available [facility] ([facility]) [address] [facility], [place], [address], 07/11/2024 10:30:50 07/11/19 25 07/11/2024 CBC AUTO W DIFF HGB 11.0 gm/dL 12.5-1 6.0 low Not Available [facility] ([facility]) [address] [facility], [place], [address], 07/11/2024 10:30:50 07/11/19 25 07/11/2024 CBC AUTO W DIFF HCT 34.5 % 37.0-4 7.0 low Not Available [facility] ([facility]) [address] [place], [address], 07/11/2024 10:30:50 07/11/19 25 07/11/2024 CBC AUTO W DIFF MCV 92.0 fL 78-100 Not Available [facility] ([facility]) [address] [facility], [place], [address], 07/11/2024 10:30:50 07/11/19 25 07/11/2024 CBC AUTO W DIFF MCH 29.3 pg 27-31 Not Available [facility] ([facility]) [address], [place], [address], 07/11/2024 10:30:50 07/11/19 25 07/11/2024 CBC AUTO W DIFF MCHC 31.9 g/dL 32-36 low Not Available [facility] ([facility]) [address], [place], [address], 07/11/2024 10:30:50 07/11/19 25 07/11/2024 CBC AUTO W DIFF RDW 15.9 % 11.5-1 4.0 high Not Available [facility] ([facility]) [address] [facility], [place], [address], 07/11/2024 10:30:50 07/11/19 25 07/11/2024 CBC AUTO W DIFF platelet count 267 K/uL 150-45 0 Not Available [facility] ([facility]) [address], [place], [address], 07/11/2024 10:30:50 07/11/19 25 07/11/2024 CBC AUTO W DIFF MPV 9.1 fL 6-9.5 Not Available [facility] ([facility]) [address] [place], [address], 07/11/2024 10:30:50 07/11/19 25 07/11/2024 CBC AUTO W DIFF neutrophil% 66.2 % 43-65 high Not Available [facility] ([facility]) [address] [place], [address], 07/11/2024 10:30:50 07/11/19 25 07/11/2024 CBC AUTO W DIFF lymphocyte% 18.6 % 20.5-4 5.5 low Not Available [facility] ([facility]) [address], [place], [address], 07/11/2024 10:30:50 07/11/19 25 07/11/2024 CBC AUTO W DIFF monocyte% 11.5 % 5.5-11 .7 Not Available [facility] ([facility]) [address] [facility], [place], [address], 07/11/2024 10:30:50 07/11/19 25 07/11/2024 CBC AUTO W DIFF eosinophil% 2.7 % 0.9-2. 9 Not Available [facility] ([facility]) [address] [facility], [place], [address], 07/11/2024 10:30:50 07/11/19 25 07/11/2024 CBC AUTO W DIFF basophil% 0.6 % 0.2-1. 0 Not Available [facility] ([facility]) [address] [facility], [place], [address], 07/11/2024 10:30:50 07/11/19 25 07/11/2024 CBC AUTO W DIFF immature granulocytes % 0.4 % 0.0-0. 8 Not Available [facility] ([facility]) [address] [facility], [place], [address], 07/11/2024 10:30:50 07/11/19 25 07/11/2024 CBC AUTO W DIFF nucleated red blood cells % 0.0 % Not Available [facility] ([facility]) [address] [facility], [place], [address], 07/11/2024 10:30:50 07/11/19 25 07/11/2024 CBC AUTO W DIFF neutrophil# 4.6 K/uL 2.2-4. 8 Not Available [facility] ([facility]) [address] [place], [address], 07/11/2024 10:30:50 07/11/19 25 07/11/2024 CBC AUTO W DIFF lymphocyte# 1.3 cell/ mcL 1.3-2. 9 Not Available [facility] ([facility]) [address] [facility], [place], [address], 07/11/2024 10:30:50 07/11/19 25 07/11/2024 CBC AUTO W DIFF monocyte# 0.8 cell/ mcL 0.3-0. 8 Not Available [facility] ([facility]) [address] [facility], [place], [address], 07/11/2024 10:30:50 07/11/19 25 07/11/2024 CBC AUTO W DIFF eosinophil# 0.2 cell/ mcL 0-0.2 Not Available [facility] ([facility]) [address] [facility], [place], [address], 07/11/2024 10:30:50 07/11/19 25 07/11/2024 CBC AUTO W DIFF basophil# 0.0 cell/ mcL 0.0-1. 0 Not Available [facility] ([facility]) [address] [facility], [place], [address], 07/11/2024 10:30:50 07/11/19 25 07/11/2024 CBC AUTO W DIFF immature gramulocytes # 0.03 K/uL Not Available [facility] ([facility]) [address] [place], [address], 07/11/2024 10:30:50 07/11/19 25 07/11/2024 CBC AUTO W DIFF nucleated red blood cells # 0.00 K/uL Not Available [facility] ([facility]) [address] [place], [address], 07/11/2024 10:30:50 07/11/19 25 07/11/2024 CBC AUTO W DIFF manual differential NO Not Available [facility] ([facility]) [address] , [place], [address], 07/11/2024 10:30:50 07/11/19 25 07/11/2024 COMP METAB OLIC PANEL sodium 137 mmol/ L 136-14 5 Not Available [facility] ([facility]) [address], [place], [address], 07/11/2024 10:45:53 07/11/19 25 07/11/2024 COMP METAB OLIC PANEL potassium 3.4 mmol/ L 3.6-5. 0 low Not Available [facility] ([facility]) [address], [place], [address], 07/11/2024 10:45:53 07/11/19 25 07/11/2024 COMP METAB OLIC PANEL chloride 100 mmol/ L 98-107 Not Available [facility] ([facility]) [address], [place], [address], 07/11/2024 10:45:53 07/11/19 25 07/11/2024 COMP METAB OLIC PANEL carbon dioxide 28.2 mmol/ L 21.0-3 2.0 Not Available [facility] ([facility]) [address], [place], [address], 07/11/2024 10:45:53 07/11/19 25 07/11/2024 COMP METAB OLIC PANEL anion gap 12.2 Not Available [facility] ([facility]) [address], [place], [address], 07/11/2024 10:45:53 07/11/19 25 07/11/2024 COMP METAB OLIC PANEL glucose 208 mg/dL 70-120 high Not Available [facility] ([facility]) [address] [place], [address], 07/11/2024 10:45:53 07/11/19 25 07/11/2024 COMP METAB OLIC PANEL BUN 16 mg/dL 7-18 Not Available [facility] ([facility]) [address], [place], [address], 07/11/2024 10:45:53 07/11/19 25 07/11/2024 COMP METAB OLIC PANEL creatinine 1.2 mg/dL 0.6-1. 3 Not Available [facility] ([facility]) [address], [place], [address], 07/11/2024 10:45:53 07/11/19 25 07/11/2024 COMP METAB [...] albrecht ing kiney funct ion. Not Available [facility] ([facility]) [address] [place], [address], 07/11/2024 10:45:53 07/11/19 25 07/11/2024 COMP METAB OLIC PANEL total protein 6.6 g/dL 6.4-8. 2 Not Available [facility] ([facility]) [address] [place], [address], 07/11/2024 10:45:53 07/11/19 25 07/11/2024 COMP METAB OLIC PANEL albumin 2.3 g/dL 3.4-5. 0 low Not Available [facility] ([facility]) [address], [place], [address], 07/11/2024 10:45:53 07/11/19 25 07/11/2024 COMP METAB OLIC PANEL globulin 4.3 Not Available [facility] ([facility]) [address], [place], [address], 07/11/2024 10:45:53 07/11/19 25 07/11/2024 COMP METAB OLIC PANEL alb/glob ratio 0.5 0.7-2 low Not Available [facility] ([facility]) [address], [place], [address], 07/11/2024 10:45:53 07/11/19 25 07/11/2024 COMP METAB OLIC PANEL calcium 8.9 mg/dL 8.5-10 .5 Not Available [facility] ([facility]) [address], [place], [address], 07/11/2024 10:45:53 07/11/19 25 07/11/2024 COMP METAB OLIC PANEL bilirubin total 0.50 mg/dL 0.10-1 .00 Not Available [facility] ([facility]) [address] [place], [address], 07/11/2024 10:45:53 07/11/19 25 07/11/2024 COMP METAB OLIC PANEL AST (SGOT) 50 U/L 0-37 high Not Available [facility] ([facility]) [address] [place], [address], 07/11/2024 10:45:53 07/11/19 25 07/11/2024 COMP METAB OLIC PANEL ALT (SGPT) 20 U/L 0-65 Not Available [facility] ([facility]) [address], [place], [address], 07/11/2024 10:45:53 07/11/19 25 07/11/2024 COMP METAB OLIC PANEL alk phosphatase 248 U/L 46-116 high Not Available [facility] ([facility]) [address], [place], [address], 07/11/2024 10:45:53 07/11/19 25 07/11/2024 MAGNE SIUM magnesium 2.3 mg/dL 1.8-2. 4 Not Available [facility] ([facility]) [address], [place], [address], 07/11/2024 10:45:56 07/11/19 25 07/11/2024 PT (PROT HROMB IN TIME) W INR prothrombin time 14.3 secon ds 9.3-11 .4 high Not Available [facility] ([facility]) [address], [place], [address], 07/11/2024 10:59:01 07/11/19 25 07/11/2024 PT (PROT [...] Mecha nical Heart Valve s Not Available [facility] ([facility]) [address], [place], [address], 07/11/2024 10:59:01 07/11/19 25 07/12/2024 CEA cea [...] t be inter prete d as absol [place] evide nce of the prese nce or absen [facility]. Perfo rmed at: [facility] [address], [place] [address] [facility] Direc tor: Tate staton PhD, Phone : [phone] Not Available [facility] ([facility]) [address] , [place], [address], 07/12/2024 13:09:06 07/25/19 25 07/25/2024 MAGNE SIUM magnesium 1.8 mg/dL 1.8-2. 4 Not Available [facility] [facility] [address] , [place], [address], 07/25/2024 10:51:25 07/25/19 25 07/25/2024 CBC AUTO W DIFF WBC 9.0 K/uL 4.0-10 .5 Not Available [facility] ([facility]) [address] , [place], [address], 07/25/2024 10:52:22 07/25/19 25 07/25/2024 CBC AUTO W DIFF RBC 4.3 M/mm3 4.2-6. 4 Not Available [facility] ([facility]) [address] , [place], [address], 07/25/2024 10:52:22 07/25/19 25 07/25/2024 CBC AUTO W DIFF HGB 12.6 gm/dL 12.5-1 6.0 Not Available [facility] ([facility]) [address] , [place], [address], 07/25/2024 10:52:22 07/25/19 25 07/25/2024 CBC AUTO W DIFF HCT 39.6 % 37.0-4 7.0 Not Available [facility] ([facility]) [address] , [place], [address], 07/25/2024 10:52:22 07/25/19 25 07/25/2024 CBC AUTO W DIFF MCV 92.7 fL 78-100 Not Available [facility] ([facility]) [address] , [place], [address], 07/25/2024 10:52:22 07/25/19 25 07/25/2024 CBC AUTO W DIFF MCH 29.5 pg 27-31 Not Available [facility] ([facility]) [address] , [place], [address], 07/25/2024 10:52:22 07/25/19 25 07/25/2024 CBC AUTO W DIFF MCHC 31.8 g/dL 32-36 low Not Available [facility] ([facility]) [address] , [place], [address], 07/25/2024 10:52:22 07/25/19 25 07/25/2024 CBC AUTO W DIFF RDW 16.8 % 11.5-1 4.0 high Not Available [facility] ([facility]) [address], [place], [address], 07/25/2024 10:52:22 07/25/19 25 07/25/2024 CBC AUTO W DIFF platelet count 234 K/uL 150-45 0 Not Available [facility] ([facility]) [address] , [place], [address], 07/25/2024 10:52:22 07/25/19 25 07/25/2024 CBC AUTO W DIFF MPV 9.2 fL 6-9.5 Not Available [facility] ([facility]) [address] , [place], [address], 07/25/2024 10:52:22 07/25/19 25 07/25/2024 CBC AUTO W DIFF neutrophil% 70.3 % 43-65 high Not Available [facility] ([facility]) [address] [place], [address], 07/25/2024 10:52:22 07/25/19 25 07/25/2024 CBC AUTO W DIFF lymphocyte% 16.5 % 20.5-4 5.5 low Not Available [facility] ([facility]) [address], [place], [address], 07/25/2024 10:52:22 07/25/19 25 07/25/2024 CBC AUTO W DIFF monocyte% 7.0 % 5.5-11 .7 Not Available [facility] ([facility]) [address], [place], [address], 07/25/2024 10:52:22 07/25/19 25 07/25/2024 CBC AUTO W DIFF eosinophil% 5.3 % 0.9-2. 9 high Not Available [facility] ([facility]) [address], [place], [address], 07/25/2024 10:52:22 07/25/19 25 07/25/2024 CBC AUTO W DIFF basophil% 0.6 % 0.2-1. 0 Not Available [facility] ([facility]) [address], [place], [address], 07/25/2024 10:52:22 07/25/19 25 07/25/2024 CBC AUTO W DIFF immature granulocytes % 0.3 % 0.0-0. 8 Not Available [facility] ([facility]) [address], [place], [address], 07/25/2024 10:52:22 07/25/19 25 07/25/2024 CBC AUTO W DIFF nucleated red blood cells % 0.0 % Not Available [facility] ([facility]) [address], [place], [address], 07/25/2024 10:52:22 07/25/19 25 07/25/2024 CBC AUTO W DIFF neutrophil# 6.3 K/uL 2.2-4. 8 high Not Available [facility] ([facility]) [address] [place], [address], 07/25/2024 10:52:22 07/25/19 25 07/25/2024 CBC AUTO W DIFF lymphocyte# 1.5 cell/ mcL 1.3-2. 9 Not Available [facility] ([facility]) [address], [place], [address], 07/25/2024 10:52:22 07/25/19 25 07/25/2024 CBC AUTO W DIFF monocyte# 0.6 cell/ mcL 0.3-0. 8 Not Available [facility] ([facility]) [address], [place], [address], 07/25/2024 10:52:22 07/25/19 25 07/25/2024 CBC AUTO W DIFF eosinophil# 0.5 cell/ mcL 0-0.2 high Not Available [facility] ([facility]) [address], [place], [address], 07/25/2024 10:52:22 07/25/19 25 07/25/2024 CBC AUTO W DIFF basophil# 0.1 cell/ mcL 0.0-1. 0 Not Available [facility] ([facility]) [address], [place], [address], 07/25/2024 10:52:22 07/25/19 25 07/25/2024 CBC AUTO W DIFF immature gramulocytes # 0.03 K/uL Not Available [facility] ([facility]) [address], [place], [address], 07/25/2024 10:52:22 07/25/19 25 07/25/2024 CBC AUTO W DIFF nucleated red blood cells # 0.00 K/uL Not Available [facility] ([facility]) [address], [place], [address], 07/25/2024 10:52:22 07/25/19 25 07/25/2024 CBC AUTO W DIFF manual differential NO Not Available [facility] ([facility]) [address] , [place], [address], 07/25/2024 10:52:22 07/25/19 25 07/25/2024 COMP METAB OLIC PANEL sodium 137 mmol/ L 136-14 5 Not Available [facility] ([facility]) [address] , [place], [address], 07/25/2024 10:58:53 07/25/19 25 07/25/2024 COMP METAB OLIC PANEL potassium 3.7 mmol/ L 3.6-5. 0 Not Available [facility] ([facility]) [address] , [place], [address], 07/25/2024 10:58:53 07/25/19 25 07/25/2024 COMP METAB OLIC PANEL chloride 100 mmol/ L 98-107 Not Available [facility] ([facility]) [address] , [place], [address], 07/25/2024 10:58:53 07/25/19 25 07/25/2024 COMP METAB OLIC PANEL carbon dioxide 25.4 mmol/ L 21.0-3 2.0 Not Available [facility] ([facility]) [address] , [place], [address], 07/25/2024 10:58:53 07/25/19 25 07/25/2024 COMP METAB OLIC PANEL anion gap 15.3 Not Available [facility] ([facility]) [address] , [place], [address], 07/25/2024 10:58:53 07/25/19 25 07/25/2024 COMP METAB OLIC PANEL glucose 169 mg/dL 70-120 high Not Available [facility] ([facility]) [address] , [place], [address], 07/25/2024 10:58:53 07/25/19 25 07/25/2024 COMP METAB OLIC PANEL BUN 17 mg/dL 7-18 Not Available [facility] ([facility]) [address], [place], [address], 07/25/2024 10:58:53 07/25/19 25 07/25/2024 COMP METAB OLIC PANEL creatinine 0.9 mg/dL 0.6-1. 3 Not Available [facility] ([facility]) [address], [place], [address], 07/25/2024 10:58:53 07/25/19 25 07/25/2024 COMP METAB [...] albrecht ing kiney funct ion. Not Available [facility] ([facility]) [address] , [place], [address], 07/25/2024 10:58:53 07/25/19 25 07/25/2024 COMP METAB OLIC PANEL total protein 7.1 g/dL 6.4-8. 2 Not Available [facility] ([facility]) [address] , [place], [address], 07/25/2024 10:58:53 07/25/19 25 07/25/2024 COMP METAB OLIC PANEL albumin 2.8 g/dL 3.4-5. 0 low Not Available [facility] ([facility]) [address] , [place], [address], 07/25/2024 10:58:53 07/25/19 25 07/25/2024 COMP METAB OLIC PANEL globulin 4.3 Not Available [facility] ([facility]) [address], [place], [address], 07/25/2024 10:58:53 07/25/19 25 07/25/2024 COMP METAB OLIC PANEL alb/glob ratio 0.7 0.7-2 Not Available [facility] ([facility]) [address], [place], [address], 07/25/2024 10:58:53 07/25/19 25 07/25/2024 COMP METAB OLIC PANEL calcium 9.0 mg/dL 8.5-10 .5 Not Available [facility] ([facility]) [address], [place], [address], 07/25/2024 10:58:53 07/25/19 25 07/25/2024 COMP METAB OLIC PANEL bilirubin total 0.60 mg/dL 0.10-1 .00 Not Available [facility] ([facility]) [address], [place], [address], 07/25/2024 10:58:53 07/25/19 25 07/25/2024 COMP METAB OLIC PANEL AST (SGOT) 33 U/L 0-37 Not Available [facility] ([facility]) [address], [place], [address], 07/25/2024 10:58:53 07/25/19 25 07/25/2024 COMP METAB OLIC PANEL ALT (SGPT) 20 U/L 0-65 Not Available [facility] ([facility]) [address], [place], [address], 07/25/2024 10:58:53 07/25/19 25 07/25/2024 COMP METAB OLIC PANEL alk phosphatase 224 U/L 46-116 high Not Available [facility] ([facility]) [address], [place], [address], 07/25/2024 10:58:53 07/25/19 25 07/25/2024 PT (PROT HROMB IN TIME) W INR prothrombin time 27.2 secon ds 9.3-11 .4 high Not Available [facility] ([facility]) [address] , [place], [address], 07/25/2024 11:01:05 07/25/19 25 07/25/2024 PT (PROT [...] Mecha nical Heart Valve s Not Available [facility] ([facility]) [address] , [place], [address], 07/25/2024 11:01:05 07/25/19 25 07/26/2024 CEA cea [...] t be inter prete d as absol cowlitz evide nce of the prese nce or absen ce of [facility] se. Perfo rmed at: - [facility] [address] [facility], [place] [id number] Lab Direc tor: Tate staton PhD, Phone : [phone] Not Available [facility] ([facility]) [address] , [place], [address], 07/26/2024 08:13:00 08/11/19 25 08/10/2024 CBC AUTO W DIFF WBC 10.3 K/uL 4.0-10 .5 Not Available [facility] ([facility]) [address], [place], [address], 08/10/2024 10:33:28 08/11/19 25 08/10/2024 CBC AUTO W DIFF RBC 4.0 M/mm3 4.2-6. 4 low Not Available [facility] ([facility]) [address], [place], [address], 08/10/2024 10:33:28 08/11/19 25 08/10/2024 CBC AUTO W DIFF HGB 11.9 gm/dL 12.5-1 6.0 low Not Available [facility] ([facility]) [address], [place], [address], 08/10/2024 10:33:28 08/11/19 25 08/10/2024 CBC AUTO W DIFF HCT 36.4 % 37.0-4 7.0 low Not Available [facility] ([facility]) [address], [place], [address], 08/10/2024 10:33:28 08/11/19 25 08/10/2024 CBC AUTO W DIFF MCV 91.7 fL 78-100 Not Available [facility] ([facility]) [address], [place], [address], 08/10/2024 10:33:28 08/11/19 25 08/10/2024 CBC AUTO W DIFF MCH 30.0 pg 27-31 Not Available [facility] ([facility]) [address], [place], [address], 08/10/2024 10:33:28 08/11/19 25 08/10/2024 CBC AUTO W DIFF MCHC 32.7 g/dL 32-36 Not Available [facility] ([facility]) [address], [place], [address], 08/10/2024 10:33:28 08/11/19 25 08/10/2024 CBC AUTO W DIFF RDW 16.3 % 11.5-1 4.0 high Not Available [facility] ([facility]) [address] , [place], [address], 08/10/2024 10:33:28 08/11/19 25 08/10/2024 CBC AUTO W DIFF platelet count 227 K/uL 150-45 0 Not Available [facility] ([facility]) [address] , [place], [address], 08/10/2024 10:33:28 08/11/19 25 08/10/2024 CBC AUTO W DIFF MPV 9.6 fL 6-9.5 high Not Available [facility] ([facility]) [address] , [place], [address], 08/10/2024 10:33:28 08/11/19 25 08/10/2024 CBC AUTO W DIFF neutrophil% 71.2 % 43-65 high Not Available [facility] ([facility]) [address] , [place], [address], 08/10/2024 10:33:28 08/11/19 25 08/10/2024 CBC AUTO W DIFF lymphocyte% 12.6 % 20.5-4 5.5 low Not Available [facility] ([facility]) [address] , [place], [address], 08/10/2024 10:33:28 08/11/19 25 08/10/2024 CBC AUTO W DIFF monocyte% 6.6 % 5.5-11 .7 Not Available [facility] ([facility]) [address] [place], [address], 08/10/2024 10:33:28 08/11/19 25 08/10/2024 CBC AUTO W DIFF eosinophil% 8.6 % 0.9-2. 9 high Not Available [facility] ([facility]) [address] [place], [address], 08/10/2024 10:33:28 08/11/19 25 08/10/2024 CBC AUTO W DIFF basophil% 0.7 % 0.2-1. 0 Not Available [facility] ([facility]) [address], [place], [address], 08/10/2024 10:33:28 08/11/19 25 08/10/2024 CBC AUTO W DIFF immature granulocytes % 0.3 % 0.0-0. 8 Not Available [facility] ([facility]) [address], [place], [address], 08/10/2024 10:33:28 08/11/19 25 08/10/2024 CBC AUTO W DIFF nucleated red blood cells % 0.0 % Not Available [facility] ([facility]) [address], [place], [address], 08/10/2024 10:33:28 08/11/19 25 08/10/2024 CBC AUTO W DIFF neutrophil# 7.3 K/uL 2.2-4. 8 high Not Available [facility] ([facility]) [address], [place], [address], 08/10/2024 10:33:28 08/11/19 25 08/10/2024 CBC AUTO W DIFF lymphocyte# 1.3 cell/ mcL 1.3-2. 9 Not Available [facility] ([facility]) [address], [place], [address], 08/10/2024 10:33:28 08/11/19 25 08/10/2024 CBC AUTO W DIFF monocyte# 0.7 cell/ mcL 0.3-0. 8 Not Available [facility] ([facility]) [address], [place], [address], 08/10/2024 10:33:28 08/11/19 25 08/10/2024 CBC AUTO W DIFF eosinophil# 0.9 cell/ mcL 0-0.2 high Not Available [facility] ([facility]) [address] , [place], [address], 08/10/2024 10:33:28 08/11/19 25 08/10/2024 CBC AUTO W DIFF basophil# 0.1 cell/ mcL 0.0-1. 0 Not Available [facility] ([facility]) [address] , [place], [address], 08/10/2024 10:33:28 08/11/19 25 08/10/2024 CBC AUTO W DIFF immature gramulocytes # 0.03 K/uL Not Available [facility] ([facility]) [address], [place], [address], 08/10/2024 10:33:28 08/11/19 25 08/10/2024 CBC AUTO W DIFF nucleated red blood cells # 0.00 K/uL Not Available [facility] ([facility]) [address], [place], [address], 08/10/2024 10:33:28 08/11/19 25 08/10/2024 CBC AUTO W DIFF manual differential NO Not Available [facility] ([facility]) [address] , [place], [address], 08/10/2024 10:33:28 08/11/19 25 08/10/2024 COMP METAB OLIC PANEL sodium 140 mmol/ L 136-14 5 Not Available [facility] ([facility]) [address] [place], [address], 08/10/2024 10:56:34 08/11/19 25 08/10/2024 COMP METAB OLIC PANEL potassium 4.1 mmol/ L 3.6-5. 0 Not Available [facility] ([facility]) [address], [place], [address], 08/10/2024 10:56:34 08/11/19 25 08/10/2024 COMP METAB OLIC PANEL chloride 104 mmol/ L 98-107 Not Available [facility] ([facility]) [address], [place], [address], 08/10/2024 10:56:34 08/11/19 25 08/10/2024 COMP METAB OLIC PANEL carbon dioxide 22.7 mmol/ L 21.0-3 2.0 Not Available [facility] ([facility]) [address] , [place], [address], 08/10/2024 10:56:34 08/11/19 25 08/10/2024 COMP METAB OLIC PANEL anion gap 17.4 Not Available [facility] ([facility]) [address] , [place], [address], 08/10/2024 10:56:34 08/11/19 25 08/10/2024 COMP METAB OLIC PANEL glucose 180 mg/dL 70-120 high Not Available [facility] ([facility]) [address] , [place], [address], 08/10/2024 10:56:34 08/11/19 25 08/10/2024 COMP METAB OLIC PANEL BUN 13 mg/dL 7-18 Not Available [facility] ([facility]) [address] , [place], [address], 08/10/2024 10:56:34 08/11/19 25 08/10/2024 COMP METAB OLIC PANEL creatinine 1.05 mg/dL 0.6-1. 3 Not Available [facility] ([facility]) [address] , [place], [address], 08/10/2024 10:56:34 08/11/19 25 08/10/2024 COMP METAB [...] albrecht ing kiney funct ion. Not Available [facility] ([facility]) [address] , [place], [address], 08/10/2024 10:56:34 08/11/19 25 08/10/2024 COMP METAB OLIC PANEL total protein 6.9 g/dL 6.4-8. 2 Not Available [facility] ([facility]) [address], [place], [address], 08/10/2024 10:56:34 08/11/19 25 08/10/2024 COMP METAB OLIC PANEL albumin 4.3 g/dL 3.4-5. 0 Not Available [facility] ([facility]) [address], [place], [address], 08/10/2024 10:56:34 08/11/19 25 08/10/2024 COMP METAB OLIC PANEL globulin 2.6 Not Available [facility] ([facility]) [address], [place], [address], 08/10/2024 10:56:34 08/11/19 25 08/10/2024 COMP METAB OLIC PANEL alb/glob ratio 1.7 0.7-2 Not Available [facility] ([facility]) [address], [place], [address], 08/10/2024 10:56:34 08/11/19 25 08/10/2024 COMP METAB OLIC PANEL calcium 8.9 mg/dL 8.5-10 .5 Not Available [facility] ([facility]) [address], [place], [address], 08/10/2024 10:56:34 08/11/19 25 08/10/2024 COMP METAB OLIC PANEL bilirubin total 0.6 mg/dL 0.10-1 .00 Not Available [facility] ([facility]) [address] , [place], [address], 08/10/2024 10:56:34 08/11/19 25 08/10/2024 COMP METAB OLIC PANEL AST (SGOT) 40 U/L 0-37 high Not Available [facility] ([facility]) [address], [place], [address], 08/10/2024 10:56:34 08/11/19 25 08/10/2024 COMP METAB OLIC PANEL ALT (SGPT) 23 U/L 0-65 Not Available [facility] ([facility]) [address], [place], [address], 08/10/2024 10:56:34 08/11/19 25 08/10/2024 COMP METAB OLIC PANEL alk phosphatase 234 U/L 46-116 high Not Available [facility] ([facility]) [address], [place], [address], 08/10/2024 10:56:34 08/11/19 25 08/10/2024 MAGNE SIUM magnesium 2.1 mg/dL 1.8-2. 4 Not Available [facility] ([facility]) [address], [place], [address], 08/10/2024 10:57:38 08/11/19 25 08/10/2024 PT (PROT HROMB IN TIME) W INR prothrombin time 36.2 secon ds 9.3-11 .4 high Not Available [facility] ([facility]) [address], [place], [address], 08/10/2024 10:58:45 08/11/19 25 08/10/2024 PT (PROT [...] Mecha nical Heart Valve s Not Available [facility] ([facility]) [address] , [place], [address], 08/10/2024 10:58:45 08/26/19 25 08/25/2024 COMP METAB OLIC PANEL sodium 137 mmol/ L 136-14 5 Not Available [facility] ([facility]) [address] , [place], [address], 08/25/2024 09:39:00 08/26/19 25 08/25/2024 COMP METAB OLIC PANEL potassium 4.1 mmol/ L 3.6-5. 0 Not Available [facility] ([facility]) [address] [place], [address], 08/25/2024 09:39:00 08/26/19 25 08/25/2024 COMP METAB OLIC PANEL chloride 101 mmol/ L 98-107 Not Available [facility] ([facility]) [address] [place], [address], 08/25/2024 09:39:00 08/26/19 25 08/25/2024 COMP METAB OLIC PANEL carbon dioxide 23.8 mmol/ L 21.0-3 2.0 Not Available [facility] ([facility]) [address] [place], [address], 08/25/2024 09:39:00 08/26/19 25 08/25/2024 COMP METAB OLIC PANEL anion gap 16.3 Not Available [facility] ([facility]) [address] [place], [address], 08/25/2024 09:39:00 08/26/1908/25/2024 COMP METAB OLIC PANEL glucose 169 mg/dL 70-120 high Not Available [facility] ([facility]) [address] , [place], [address], 08/25/2024 09:39:00 08/26/1908/25/2024 COMP METAB OLIC PANEL BUN 17 mg/dL 7-18 Not Available [facility] ([facility]) [address] , [place], [address], 08/25/2024 09:39:00 08/26/1908/25/2024 COMP METAB OLIC PANEL creatinine 1.5 mg/dL 0.6-1. 3 high Not Available [facility] ([facility]) [address] , [place], [address], 08/25/2024 09:39:00 08/26/1908/25/2024 COMP METAB OLIC PANEL [...] albrecht ing kiney funct ion. Not Available [facility] ([facility]) [address] , [place], [address], 08/25/2024 09:39:00 08/26/1908/25/2024 COMP METAB OLIC PANEL osmolality (calculated) 291 mOsm/ kg 275-30 1 OSMOL ALITY IS A CALCU LATIO N UTILI ZING THE SERUM /PLAS MA SODIU M, GLUCO SE AND UREA NITRO GEN (BUN) LEVEL S. FOR THE MOST ACCUR ATE RESUL T A MEASU RED SERUM OSMOL ALITY IS HAYDER PALM. Not Available [facility] ([facility]) [address], [place], [address], 08/25/2024 09:39:00 08/26/19 25 08/25/2024 COMP METAB OLIC PANEL total protein 7.2 g/dL 6.4-8. 2 Not Available [facility] ([facility]) [address], [place], [address], 08/25/2024 09:39:00 08/26/19 25 08/25/2024 COMP METAB OLIC PANEL albumin 2.9 g/dL 3.4-5. 0 low Not Available [facility] ([facility]) [address], [place], [address], 08/25/2024 09:39:00 08/26/19 25 08/25/2024 COMP METAB OLIC PANEL globulin 4.3 Not Available [facility] ([facility]) [address], [place], [address], 08/25/2024 09:39:00 08/26/1908/25/2024 COMP METAB OLIC PANEL alb/glob ratio 0.7 0.7-2 Not Available [facility] ([facility]) [address] , [place], [address], 08/25/2024 09:39:00 08/26/19 25 08/25/2024 COMP METAB OLIC PANEL calcium 8.9 mg/dL 8.5-10 .5 Not Available [facility] ([facility]) [address], [place], [address], 08/25/2024 09:39:00 08/26/19 25 08/25/2024 COMP METAB OLIC PANEL bilirubin total 0.50 mg/dL 0.10-1 .00 Not Available [facility] ([facility]) [address], [place], [address], 08/25/2024 09:39:00 08/26/19 25 08/25/2024 COMP METAB OLIC PANEL AST (SGOT) 18 U/L 0-37 Not Available [facility] ([facility]) [address] , [place], [address], 08/25/2024 09:39:00 08/26/19 25 08/25/2024 COMP METAB OLIC PANEL ALT (SGPT) 16 U/L 0-65 Not Available [facility] ([facility]) [address] , [place], [address], 08/25/2024 09:39:00 08/26/19 25 08/25/2024 COMP METAB OLIC PANEL alk phosphatase 218 U/L 46-116 high Not Available [facility] ([facility]) [address], [place], [address], 08/25/2024 09:39:00 08/26/19 25 08/25/2024 MAGNE SIUM magnesium 1.8 mg/dL 1.8-2. 4 Not Available [facility] ([facility]) [address], [place], [address], 08/25/2024 09:39:02 08/26/19 25 08/25/2024 CBC AUTO W DIFF WBC 3.5 K/uL 4.0-10 .5 low Not Available [facility] ([facility]) [address] , [place], [address], 08/25/2024 09:46:31 08/26/19 25 08/25/2024 CBC AUTO W DIFF RBC 3.9 M/mm3 4.2-6. 4 low Not Available [facility] ([facility]) [address], [place], [address], 08/25/2024 09:46:31 08/26/19 25 08/25/2024 CBC AUTO W DIFF HGB 11.4 gm/dL 12.5-1 6.0 low Not Available [facility] ([facility]) [address], [place], [address], 08/25/2024 09:46:31 08/26/19 25 08/25/2024 CBC AUTO W DIFF HCT 34.6 % 37.0-4 7.0 low Not Available [facility] ([facility]) [address], [place], [address], 08/25/2024 09:46:31 08/26/19 25 08/25/2024 CBC AUTO W DIFF MCV 88.7 fL 78-100 Not Available [facility] ([facility]) [address], [place], [address], 08/25/2024 09:46:31 08/26/19 25 08/25/2024 CBC AUTO W DIFF MCH 29.2 pg 27-31 Not Available [facility] ([facility]) [address], [place], [address], 08/25/2024 09:46:31 08/26/19 25 08/25/2024 CBC AUTO W DIFF MCHC 32.9 g/dL 32-36 Not Available [facility] ([facility]) [address], [place], [address], 08/25/2024 09:46:31 08/26/19 25 08/25/2024 CBC AUTO W DIFF RDW 15.6 % 11.5-1 4.0 high Not Available [facility] ([facility]) [address], [place], [address], 08/25/2024 09:46:31 08/26/19 25 08/25/2024 CBC AUTO W DIFF platelet count 295 K/uL 150-45 0 Not Available [facility] ([facility]) [address], [place], [address], 08/25/2024 09:46:31 08/26/19 25 08/25/2024 CBC AUTO W DIFF MPV 9.0 fL 6-9.5 Not Available [facility] ([facility]) [address] [place], [address], 08/25/2024 09:46:31 08/26/19 25 08/25/2024 CBC AUTO W DIFF neutrophil% 39.6 % 43-65 low Not Available [facility] ([facility]) [address] [place], [address], 08/25/2024 09:46:31 08/26/19 25 08/25/2024 CBC AUTO W DIFF lymphocyte% 41.8 % 20.5-4 5.5 Not Available [facility] ([facility]) [address] [place], [address], 08/25/2024 09:46:31 08/26/19 25 08/25/2024 CBC AUTO W DIFF monocyte% 13.4 % 5.5-11 .7 high Not Available [facility] ([facility]) [address] [place], [address], 08/25/2024 09:46:31 08/26/19 25 08/25/2024 CBC AUTO W DIFF eosinophil% 3.7 % 0.9-2. 9 high Not Available [facility] ([facility]) [address] [place], [address], 08/25/2024 09:46:31 08/26/19 25 08/25/2024 CBC AUTO W DIFF basophil% 0.9 % 0.2-1. 0 Not Available [facility] ([facility]) [address] [place], [address], 08/25/2024 09:46:31 08/26/19 25 08/25/2024 CBC AUTO W DIFF immature granulocytes % 0.6 % 0.0-0. 8 Not Available [facility] ([facility]) [address] [place], [address], 08/25/2024 09:46:31 08/26/19 25 08/25/2024 CBC AUTO W DIFF nucleated red blood cells % 0.0 % Not Available [facility] ([facility]) [address], [place], [address], 08/25/2024 09:46:31 08/26/19 25 08/25/2024 CBC AUTO W DIFF neutrophil# 1.4 K/uL 2.2-4. 8 low Not Available [facility] ([facility]) [address], [place], [address], 08/25/2024 09:46:31 08/26/19 25 08/25/2024 CBC AUTO W DIFF lymphocyte# 1.5 cell/ mcL 1.3-2. 9 Not Available [facility] ([facility]) [address], [place], [address], 08/25/2024 09:46:31 08/26/19 25 08/25/2024 CBC AUTO W DIFF monocyte# 0.5 cell/ mcL 0.3-0. 8 Not Available [facility] ([facility]) [address], [place], [address], 08/25/2024 09:46:31 08/26/19 25 08/25/2024 CBC AUTO W DIFF eosinophil# 0.1 cell/ mcL 0-0.2 Not Available [facility] ([facility]) [address], [place], [address], 08/25/2024 09:46:31 08/26/19 25 08/25/2024 CBC AUTO W DIFF basophil# 0.0 cell/ mcL 0.0-1. 0 Not Available [facility] ([facility]) [address], [place], [address], 08/25/2024 09:46:31 08/26/19 25 08/25/2024 CBC AUTO W DIFF immature gramulocytes # 0.02 K/uL Not Available [facility] ([facility]) [address] , [place], [address], 08/25/2024 09:46:31 08/26/19 25 08/25/2024 CBC AUTO W DIFF nucleated red blood cells # 0.00 K/uL Not Available [facility] ([facility]) [address] , [place], [address], 08/25/2024 09:46:31 08/26/19 25 08/25/2024 CBC AUTO W DIFF manual differential NO Not Available [facility] ([facility]) [address] , [place], [address], 08/25/2024 09:46:31 08/26/19 25 08/25/2024 PT (PROT HROMB IN TIME) W INR prothrombin time 77.1 secon ds 9.3-11 .4 critical high Not Available [facility] ([facility]) [address] , [place], [address], 08/25/2024 10:02:40 08/26/19 25 08/25/2024 PT (PROT [...] Mecha nical Heart Valve s Not Available [facility] ([facility]) [address] , [place], [address], 08/25/2024 10:02:40 09/03/19 25 09/02/2024 COMP METAB OLIC PANEL sodium 131 mmol/ L 136-14 5 low Not Available [facility] ([facility]) [address], [place], [address], 09/02/2024 14:45:24 09/03/19 25 09/02/2024 COMP METAB OLIC PANEL potassium 4.0 mmol/ L 3.6-5. 0 Not Available [facility] ([facility]) [address] , [place], [address], 09/02/2024 14:45:24 09/03/19 25 09/02/2024 COMP METAB OLIC PANEL chloride 99 mmol/ L 98-107 Not Available [facility] ([facility]) [address] , [place], [address], 09/02/2024 14:45:24 09/03/19 25 09/02/2024 COMP METAB OLIC PANEL carbon dioxide 18.6 mmol/ L 21.0-3 2.0 low Not Available [facility] ([facility]) [address] , [place], [address], 09/02/2024 14:45:24 09/03/19 25 09/02/2024 COMP METAB OLIC PANEL anion gap 17.4 Not Available [facility] ([facility]) [address] , [place], [address], 09/02/2024 14:45:24 09/03/19 25 09/02/2024 COMP METAB OLIC PANEL glucose 145 mg/dL 70-120 high Not Available [facility] ([facility]) [address] , [place], [address], 09/02/2024 14:45:24 09/03/19 25 09/02/2024 COMP METAB OLIC PANEL BUN 36 mg/dL 7-18 high Not Available [facility] ([facility]) [address] [place], [address], 09/02/2024 14:45:24 09/03/19 25 09/02/2024 COMP METAB OLIC PANEL creatinine 1.5 mg/dL 0.6-1. 3 high Not Available [facility] ([facility]) [address] , [place], [address], 09/02/2024 14:45:24 09/03/19 25 09/02/2024 COMP METAB [...] albrecht ing kiney funct ion. Not Available [facility] ([facility]) [address] , [place], [address], 09/02/2024 14:45:24 09/03/19 25 09/02/2024 COMP METAB OLIC PANEL osmolality (calculated) 284 mOsm/ kg 275-30 1 OSMOL ALITY IS A CALCU LATIO N UTILI ZING THE SERUM /PLAS MA SODIU M, GLUCO SE AND UREA NITRO GEN (BUN) LEVEL S. FOR THE MOST ACCUR ATE RESUL T A MEASU RED SERUM OSMOL ALITY IS SUGGE STED. Not Available [facility] ([facility]) [address] , [place], [address], 09/02/2024 14:45:24 09/03/19 25 09/02/2024 COMP METAB OLIC PANEL total protein 5.9 g/dL 6.4-8. 2 low Not Available [facility] ([facility]) [address] , [place], [address], 09/02/2024 14:45:24 09/03/19 25 09/02/2024 COMP METAB OLIC PANEL albumin 2.1 g/dL 3.4-5. 0 low Not Available [facility] ([facility]) [address], [place], [address], 09/02/2024 14:45:24 09/03/19 25 09/02/2024 COMP METAB OLIC PANEL globulin 3.8 Not Available [facility] ([facility]) [address], [place], [address], 09/02/2024 14:45:24 09/03/19 25 09/02/2024 COMP METAB OLIC PANEL alb/glob ratio 0.6 0.7-2 low Not Available [facility] ([facility]) [address], [place], [address], 09/02/2024 14:45:24 09/03/19 25 09/02/2024 COMP METAB OLIC PANEL calcium 8.1 mg/dL 8.5-10 .5 low Not Available [facility] ([facility]) [address] , [place], [address], 09/02/2024 14:45:24 09/03/19 25 09/02/2024 COMP METAB OLIC PANEL bilirubin total 1.10 mg/dL 0.10-1 .00 high Not Available [facility] ([facility]) [address] , [place], [address], 09/02/2024 14:45:24 09/03/19 25 09/02/2024 COMP METAB OLIC PANEL AST (SGOT) 13 U/L 0-37 Not Available [facility] ([facility]) [address] , [place], [address], 09/02/2024 14:45:24 09/03/19 25 09/02/2024 COMP METAB OLIC PANEL ALT (SGPT) 13 U/L 0-65 Not Available [facility] ([facility]) [address] , [place], [address], 09/02/2024 14:45:24 09/03/19 25 09/02/2024 COMP METAB OLIC PANEL alk phosphatase 188 U/L 46-116 high Not Available [facility] ([facility]) [address], [place], [address], 09/02/2024 14:45:24 09/03/19 25 09/02/2024 CBC AUTO W DIFF WBC 1.2 K/uL 4.0-10 .5 critical low Not Available [facility] ([facility]) [address], [place], [address], 09/02/2024 16:09:44 09/03/19 25 09/02/2024 CBC AUTO W DIFF RBC 3.4 M/mm3 4.2-6. 4 low Not Available [facility] ([facility]) [address] , [place], [address], 09/02/2024 16:09:44 09/03/19 25 09/02/2024 CBC AUTO W DIFF HGB 9.6 gm/dL 12.5-1 6.0 low Not Available [facility] ([facility]) [address] , [place], [address], 09/02/2024 16:09:44 09/03/19 25 09/02/2024 CBC AUTO W DIFF HCT 28.7 % 37.0-4 7.0 low Not Available [facility] ([facility]) [address] , [place], [address], 09/02/2024 16:09:44 09/03/19 25 09/02/2024 CBC AUTO W DIFF MCV 85.4 fL 78-100 Not Available [facility] ([facility]) [address] , [place], [address], 09/02/2024 16:09:44 09/03/19 25 09/02/2024 CBC AUTO W DIFF MCH 28.6 pg 27-31 Not Available [facility] ([facility]) [address] , [place], [address], 09/02/2024 16:09:44 09/03/19 25 09/02/2024 CBC AUTO W DIFF MCHC 33.4 g/dL 32-36 Not Available [facility] ([facility]) [address], [place], [address], 09/02/2024 16:09:44 09/03/19 25 09/02/2024 CBC AUTO W DIFF RDW 15.9 % 11.5-1 4.0 high Not Available [facility] ([facility]) [address] , [place], [address], 09/02/2024 16:09:44 09/03/19 25 09/02/2024 CBC AUTO W DIFF platelet count 213 K/uL 150-45 0 Not Available [facility] ([facility]) [address] , [place], [address], 09/02/2024 16:09:44 09/03/19 25 09/02/2024 CBC AUTO W DIFF MPV 9.6 fL 6-9.5 high Not Available [facility] ([facility]) [address] [place], [address], 09/02/2024 16:09:44 09/03/19 25 09/02/2024 CBC AUTO W DIFF neutrophil% 57.7 % 43-65 Not Available [facility] ([facility]) [address] [place], [address], 09/02/2024 16:09:44 09/03/19 25 09/02/2024 CBC AUTO W DIFF lymphocyte% 25.4 % 20.5-4 5.5 Not Available [facility] ([facility]) [address] [place], [address], 09/02/2024 16:09:44 09/03/19 25 09/02/2024 CBC AUTO W DIFF monocyte% 15.3 % 5.5-11 .7 high Not Available [facility] ([facility]) [address] , [place], [address], 09/02/2024 16:09:44 09/03/19 25 09/02/2024 CBC AUTO W DIFF eosinophil% 0.0 % 0.9-2. 9 low Not Available [facility] ([facility]) [address], [place], [address], 09/02/2024 16:09:44 09/03/19 25 09/02/2024 CBC AUTO W DIFF basophil% 0.8 % 0.2-1. 0 Not Available [facility] ([facility]) [address], [place], [address], 09/02/2024 16:09:44 09/03/19 25 09/02/2024 CBC AUTO W DIFF immature granulocytes % 0.8 % 0.0-0. 8 Not Available [facility] ([facility]) [address], [place], [address], 09/02/2024 16:09:44 09/03/19 25 09/02/2024 CBC AUTO W DIFF nucleated red blood cells % 0.0 % Not Available [facility] ([facility]) [address], [place], [address], 09/02/2024 16:09:44 09/03/19 25 09/02/2024 CBC AUTO W DIFF neutrophil# 0.7 K/uL 2.2-4. 8 low Not Available [facility] ([facility]) [address], [place], [address], 09/02/2024 16:09:44 09/03/19 25 09/02/2024 CBC AUTO W DIFF lymphocyte# 0.3 cell/ mcL 1.3-2. 9 low Not Available [facility] ([facility]) [address] [place], [address], 09/02/2024 16:09:44 09/03/19 25 09/02/2024 CBC AUTO W DIFF monocyte# 0.2 cell/ mcL 0.3-0. 8 low Not Available [facility] ([facility]) [address], [place], [address], 09/02/2024 16:09:44 09/03/19 25 09/02/2024 CBC AUTO W DIFF eosinophil# 0.0 cell/ mcL 0-0.2 Not Available [facility] ([facility]) [address], [place], [address], 09/02/2024 16:09:44 09/03/19 25 09/02/2024 CBC AUTO W DIFF basophil# 0.0 cell/ mcL 0.0-1. 0 Not Available [facility] ([facility]) [address], [place], [address], 09/02/2024 16:09:44 09/03/19 25 09/02/2024 CBC AUTO W DIFF immature gramulocytes # 0.01 K/uL Not Available [facility] ([facility]) [address], [place], [address], 09/02/2024 16:09:44 09/03/19 25 09/02/2024 CBC AUTO W DIFF nucleated red blood cells # 0.00 K/uL Not Available [facility] ([facility]) [address], [place], [address], 09/02/2024 16:09:44 09/03/19 25 09/02/2024 CBC AUTO W DIFF manual differential YES Not Available [facility] ([facility]) [address], [place], [address], 09/02/2024 16:09:44 09/03/19 25 09/02/2024 CBC AUTO W DIFF segmented neutrophil 54 % 42-76 Not Available [facility] ([facility]) [address] , [place], [address], 09/02/2024 16:09:44 09/03/19 25 09/02/2024 CBC AUTO W DIFF band neutrophil 8 % 0-8 Not Available [facility] ([facility]) [address] , [place], [address], 09/02/2024 16:09:44 09/03/19 25 09/02/2024 CBC AUTO W DIFF lymphocyte 16 % 15-41 Not Available [facility] ([facility]) [address], [place], [address], 09/02/2024 16:09:44 09/03/19 25 09/02/2024 CBC AUTO W DIFF monocyte 20 % 2-9 high Not Available [facility] ([facility]) [address] , [place], [address], 09/02/2024 16:09:44 09/03/19 25 09/02/2024 CBC AUTO W DIFF eosinophil 2 % 0-3 Not Available [facility] ([facility]) [address] , [place], [address], 09/02/2024 16:09:44 09/03/19 25 09/02/2024 CBC AUTO W DIFF platelet estimate ADEQUA TE adequa te Not Available [facility] ([facility]) [address] , [place], [address], 09/02/2024 16:09:44 09/03/19 25 09/02/2024 CBC AUTO W DIFF platelet morphology NORMAL normal Not Available [facility] ([facility]) [address] , [place], [address], 09/02/2024 16:09:44 09/03/19 25 09/02/2024 CBC AUTO W DIFF RBC morphology NORMAL normal Not Available [facility] ([facility]) [address], [place], [address], 09/02/2024 16:09:44 07/28/19 25 07/28/2024 CT ABD pel w/ (IV [facility] [address] 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 Legall y authen ticate d by VAMSHI HALL 0 07-28 15:46: 13 CC'ed Logic: Orderi ng Provid er: DIGNA LUGO Attend ing Provid er: DIGNA LUGO Referr ing Provid er: DIGNA LUGO Admitt ing Provid er: DIGNA taylor[address] [place] [address] - Physical Therapy [address] [place] [address], [place], [address], 07/29/2024 11:36:27 08/02/19 25 07/28/2024 CT, chest , w/ contr ast [facility] [address] [place] [address] Phone: Fax: Name: VICKY MCMAHAN Exam Date: : [birth year]48 Age 78 years Gender : F Access ion: [id number] 2023 Physic jesus: HANNA PARKER Facili ty: [facility] Facili ty HSV: Outpat ient Exam: [...] Thank you for referr VICKY Delgado to [facility]. Legall y authen ticate d by AVIS ALBA IN 07-28 15:46: 34 CC'ed Logic: Orderi ng Provid er: DIGNA LUGO Attend ing Provid er: DIGNA LUGO Referr ing Provid er: DIGNA LUGO Admitt ing Provid er: DIGNA LUGO [email or web address] [facility] [address] , [place], [address], 08/01/2024 10:49:34 Result Notes None recorded. Problems Name Problem SNOMED Code Status Onset Date Resolution Date Notes Provider Name and Address Organization Details Recorded Time Headache 62715787 Active 2024 Christine Farfan [facility], [place] - [facility] - [place] & [place] 5 10:27:12 Metastatic malignant neoplasm to liver 00953624 Active 2022 Ghassan Lieberman PA-C [address], [place], [address] , [place] - [facility] [place] [facility] [place] 3 14:27:25 Mass of colon 321769292 Active 2022 Ghassan Lieberman PA-C [address], [place], [address] , [place] - [facility] [place] [facility] [place] 3 14:27:30 Anemia 590214099 Active 2022 Ghassan Lieberman PA-C [address], [place], [address] , [place] - [facility] [place] [facility] [place] 3 14:27:36 Nausea and vomiting 91379113 Active 2022 Ghassan Lieberman PA-C [address], [place], [address] , [place] - [facility] & [place] 3 14:27:46 Unintentional weight loss 583643734 Active 2022 Ghassan Lieberman PA-C [address], [place], [address] , [place] - [facility] - [place] [facility] [place] 3 16:13:07 Night sweats 08470572 Active 2022 Ghassan Lieberman PA-C [address], [place], [address] , [place] - [facility] [place] 3 16:13:12 Problem Notes None recorded. Procedures Surgical History Date Name Laterality Status Provider Name and Address Organization Details Recorded Time 04/29/20 23 Venipuncture completed Hanna Snider PA-C [address] , [place], [address], [place] - [facility] & [place] 04/27/2023 15:05:29 04/15/20 23 [facility]ip[facility] & [place] 04/15/2023 15:24:55 hysterectomy completed Laurelesvin Hydecaio [place] - [facility] & [place] 03/11/2023 15:30:22 extraction of cataract completed Laurel Mary Ellencaio [place] - [facility] & [place] 03/11/2023 15:30:36 excision of colon completed Loree Tadeo [facility] & [place] 04/21/2023 11:32:07 Imaging Results Imaging Date Name Status LastModified by Organiz ation Details LastModified Time 07/28/2024 CT ABD pel w/ (IV completed [email or web address] [place] [address] - Physical Therapy [address], [place], [address], 07/29/2024 11:36:27 07/28/2024 CT, chest, w/ contrast completed [email or web address] [place] [address] Physical Therapy [address], [place], [address], 08/01/2024 10:49:34 Procedure Notes None recorded. Medical Equipment None Reported. Allergies Allergen ID Allergen Name Allergen Category Reaction Reaction Severity Criticality Documentation Date Start Date Code Code System Note Provider Name and Address Organization Details Recorded Time 23490 tetracycl ine medicatio n hives Not available high 02/19/2023 55001 RxNorm Brandy yusuf, [place] - [facility] - [place] [facility] [place] 3 14:03:33 Medications Name Sig Start Date [...] Updated DateTime 5 162.56 cm 36 kg/m2 00937.4 g 98 [degF] 97 % 97 % 98 /min 132 mm[Hg] 72 mm[Hg] Akilah Fuentes [facility] & [place] 5 10:42:43 Date Recorded Body height Body mass index (BMI) Body weight Body temperature Heart rate Oxygen saturation Oxygen saturation in Arterial blood by Pulse oximetry Systolic blood pressure Diastolic blood pressure Provider Name and Address Organization Details Last Updated DateTime 5 162.56 cm 35.2 kg/m2 28549.4 4 g 97.7 [degF] 60 /min 99 % 99 % 159 mm[Hg] 61 mm[Hg] Laurel Arvind [place] - [facility] & [place] 5 12:08:08 Date Recorded Body height Body mass index (BMI) Body weight Body temperature Oxygen saturation Oxygen saturation in Arterial blood by Pulse oximetry Heart rate Respiratory rate Systolic blood pressure Diastolic blood pressure Provider Name and Address Organization Details Last Updated DateTime 5 162.56 cm 36 kg/m2 80988.4 g 97 [degF] 90 % 90 % 57 /min 18 /min 143 mm[Hg] 68 mm[Hg] [facility] [place] 5 10:00:38 Date Recorded Body height Body mass index (BMI) Body weight Body temperature Oxygen saturation Oxygen saturation in Arterial blood by Pulse oximetry Heart rate Respiratory rate Systolic blood pressure Diastolic blood pressure Provider Name and Address Organization Details Last Updated DateTime 5 162.56 cm 35.2 kg/m2 69264.4 4 g 97.5 [degF] 98 % 98 % 20 /min 83 /min 140 mm[Hg] 68 mm[Hg] Laurel ELIAS [facility] & [place] 5 09:42:28 Date Recorded Body height Body temperature Oxygen saturation Oxygen saturation in Arterial blood by Pulse oximetry Heart rate Respiratory rate Systolic blood pressure Diastolic blood pressure Provider Name and Address Organization Details Last Updated DateTime 5 162.56 cm 97.2 [degF] 95 % 95 % 141 /min 20 /min 137 mm[Hg] 86 mm[Hg] Laurel ELIAS [facility] & [place] 5 12:09:03 Social History Question Answer Notes LastModified by Organizat ion Details LastModified Time Tobacco Smoking Status Never Smoker Brandy Raheem yusuf [facility] & [place] 02/19/2023 14:02:59 What Is Your Level Of Alcohol Consumption? None [email or web address] Information not available 02/19/2023 What Is Your Level Of Caffeine Consumption? None [email or web address] Information not available 02/19/2023 What Was The Date Of Your Most Recent Tobacco Screening? 11/23/2023 [email or web address] Information not available 11/23/2023 Do You Use Any Illicit Or Recreational Drugs? No [email or web address] Information not available 02/19/2023 Has Tobacco Cessation [...] pneumococcal polysaccharide PPV23 7 completed Stephanie Maravilla [place], [place] - [facility] & [place] 12/21/2023 09:56:34 Past Encounters Encounter ID Performer Location Encounter Start Date Encounter Closed Date Diagnosis/Indication Diagnosis SNOMED-CT Code Diagnosis ICD10 Code Diagnosis Note [id number] Ghassan Lieberman PA-C [facility] [address] [facility] [facility] [address] [place] [address] 02/19/2023 13:50:39 02/19/2023 14:35:58 Metastatic malignant neoplasm to liver 79860656 C78.7 Mass of colon 060145513 R19.09 Anemia 206896575 D64.9 Nausea and vomiting 1693 1999 R11.2 Unintentio nal weight loss 048949043 R63.4 Night sweats 15293563 R6 1 [id number] Addy Gonzales MD [facility] [address] [facility],[address] [place] [address] 03/10/2023 13:05:53 03/10/2023 14:02:07 Mass of colon 460821463 R19.09 Ascending colon. Patient has had ongoing [...] and possibilit y of ostomy. Liver mass 410727022 R16 .0 [id number] Tomy King MD [facility] [address] [facility] [address] [place] [address] 03/11/2023 14:55:42 03/11/2023 16:34:54 Malignant tumor of ascending colon 469586888 C18.2 CT scan of the abdomen and [...] tissue sampling. Metastatic malignant neoplasm to liver 61343723 C78.7 CT scan of the abdomen and [...] colon cancer. Will follow-up tissue biopsy. Nausea 198656889 R11.0 As needed Zofran and Phenergan prescribed . Pain due t o neoplastic disease [id number] 9102 G89.3 Right upper quadrant pain secondary to liver metastasis . Patient currently taking Tylenol. Discussed as needed oxycodone to limit Tylenol exposure. Anemia 018753727 D64.9 Right-side d colon mass concerning for malignancy . Will assess for any signs of iron deficiency . Most recent hemoglobin at 8.0. Concern for blood loss from colon mass. Patient reports dark stools. Adopted [id number] Z62.89 8 Patient is adopted and discussed hereditary gene panel. Patient does have family history of her son having bladder cancer. [id number] Tomy King MD [facility] [address] [place] [address] 04/15/2023 14:08:30 04/15/2023 15:42:28 Malignant tumor of ascending colon 055903928 C18.2 CT scan of the abdomen and [...] 8.2 hematocrit 29.0. MCV 67.9. Platelet count 001996. Normal cell differenti al. Low serum folate [...] metastatic colorectal cancer. Discussed chemothera py with [place] based regimen with 5FU Leucovorin if KRAS wild type would also add Vectibix to therapy. Will follow-up. Patient returns on April 15, 2023. Will start chemothera py as soon as possible. Metastatic malignant neoplasm to liver 70497297 C78.7 CT scan of the abdomen and [...] Findings concerning for metastatic colon cancer. Nausea 510980095 R11.0 As needed Zofran and Phenergan prescribed . Pain due t o neoplastic disease 5918568802 9102 G89.3 Right upper quadrant pain secondary to liver metastasis . Patient currently taking Tylenol. Discussed as needed oxycodone to limit Tylenol exposure. Anemia 430898166 D64.9 Right-side d colon mass concerning for malignancy . Will assess for any signs of iron deficiency . Most recent hemoglobin at 8.0. Concern for blood loss from colon mass. Patient reports dark stools. Adopted 839704339 Z62.89 8 Patient is adopted and discussed hereditary gene panel. Patient does have family history of her son having bladder cancer. Will send [facility] hereditary panel. [id number] Addy Gonzales MD [facility] [address] [facility],[address] [place] [address] 04/21/2023 11:07:18 04/21/2023 11:47:40 Malignant tumor of ascending colon 919632301 C18.2 Patient has follow-up with Oncology, is debating if she wishes any further treatment at this point. I have recommende d continuing lifting restrictio ns for another 2 weeks, then can resume activity as tolerated. Patient can follow-up with me if she has ongoing issues or questions. [id number] Hanna Snider PA-C [facility] [address] [place] [address] 04/29/2023 10:08:09 04/29/2023 10:08:41 Malignant tumor of ascending colon 335524759 C18.2 CT scan of the abdomen and [...] 8.2 hematocrit 29.0. MCV 67.9. Platelet count 801877. Normal cell differenti al. Low serum folate [...] metastatic colorectal cancer. Discussed chemothera py with [place] based regimen with 5FU Leucovorin if [...] prescripti on for Megace. Will follow-up for improvemen t. Metastatic malignant neoplasm to liver 47797647 C78.7 CT scan of the abdomen and [...] Findings concerning for metastatic colon cancer. Nausea 888910684 R11.0 As needed Zofran and Phenergan prescribed . Pain due t o neoplastic disease 4348935867 9102 G89.3 Right upper quadrant pain secondary to liver metastasis . Patient currently taking Tylenol. Discussed as needed oxycodone to limit Tylenol exposure. Anemia 932141566 D64.9 Right-side d colon mass concerning for malignancy . Will assess for any signs of iron deficiency . Most recent hemoglobin at 8.0. Concern for blood loss from colon mass. Patient reports dark stools. Adopted 156949745 Z62.89 8 Patient is adopted and discussed hereditary gene panel. Patient does have family history of her son having bladder cancer. Will send [facility] hereditary panel. Antineopla stic chemotherapy regimen 140230696 Z51.11 Cycle 1 5FU Leucovorin Vectibix on April 29, 2023. Hypomagnesemia 864805381 E83.42 Patient returns on April 29, 2023. Magnesium level is 1.7 today. Will give 1 g magnesium IV. Hypokalemia 07230439 E87 .6 Patient returns on April 29, 2023. Potassium is low at 2.9. Will send prescripti on for potassium 20 mEq daily. Will follow-up labs again next week. Loss of appetite 9820565 6 R63.0 Patient has had nausea and decreased appetite since her cancer diagnosis. She can not tolerate her nutritiona l drinks. She does take Phenergan with relief. She continues to lose weight. Will send prescripti on for Megace. [id number] Hanna Snider PA-C [facility] [address] [place] [address] 05/04/2023 09:35:22 05/04/2023 09:45:11 Malignant tumor of ascending colon 556405053 C18.2 CT scan of the abdomen and [...] 8.2 hematocrit 29.0. MCV 67.9. Platelet count 099340. Normal cell differenti al. Low serum folate [...] metastatic colorectal cancer. Discussed chemothera py with [place] based regimen with 5FU Leucovorin if [...] has started on Megace. Will follow-up for [facility] t. Metastatic malignant neoplasm to liver 80380273 C78.7 CT scan of the abdomen and [...] Findings concerning for metastatic colon cancer. Nausea 581812582 R11.0 As needed Zofran and Phenergan prescribed . Pain due t o neoplastic disease 9902893104 9102 G89.3 Right upper quadrant pain secondary to liver metastasis . Patient currently taking Tylenol. Discussed as needed oxycodone to limit Tylenol exposure. Anemia 698222411 D64.9 Right-side d colon mass concerning for malignancy . Will assess for any signs of iron deficiency . Most recent hemoglobin at 8.0. Concern for blood loss from colon mass. Patient reports dark stools. Adopted 775440547 Z62.89 8 Patient is adopted and discussed hereditary gene panel. Patient does have family history of her son having bladder cancer. Will send [facility] hereditary panel. Antineopla stic chemotherapy regimen 863580365 Z51.11 Cycle 1 5FU Leucovorin Vectibix on April 29, 2023. Cycle 2 5FU Leucovorin Vectibix on May 04, 2023. Hypomagnesemia 872697683 E83.42 Patient returns on April 29, 2023. Magnesium level is 1.7 today. Will give 1 g magnesium IV. Hypokalemia 04497751 E87 .6 Patient returns on April 29, 2023. Potassium is low at 2.9. Will send prescripti on for potassium 20 mEq daily. Will follow-up labs again next week. Loss of appetite 8872684 6 R63.0 Patient has had nausea and decreased appetite since her cancer diagnosis. She can not tolerate her nutritiona l drinks. She does take Phenergan with relief. She continues to lose weight. Will send prescripti on for Megace. [id number] Hanna Snider PA-C [facility] [address] [place] [address] 05/11/2023 09:04:44 05/11/2023 13:02:16 Malignant tumor of ascending colon 577848918 C18.2 CT scan of the abdomen and [...] 8.2 hematocrit 29.0. MCV 67.9. Platelet count 107221. Normal cell differenti al. Low serum folate [...] metastatic colorectal cancer. Discussed chemothera py with [place] based regimen with 5FU Leucovorin if [...] improvemen t. Metastatic malignant neoplasm to liver 92963338 C78.7 CT scan of the abdomen and [...] Findings concerning for metastatic colon cancer. Nausea 286980091 R11.0 As needed Zofran and Phenergan prescribed . Pain due t o neoplastic disease 4839125314 9102 G89.3 Right upper quadrant pain secondary to liver metastasis . Patient currently taking Tylenol. Discussed as needed oxycodone to limit Tylenol exposure. Anemia 386278776 D64.9 Right-side d colon mass concerning for malignancy . Will assess for any signs of iron deficiency . Most recent hemoglobin at 8.0. Concern for blood loss from colon mass. Patient reports dark stools. Adopted [id number] Z62.89 8 Patient is adopted and discussed hereditary gene panel. Patient does have family history of her son having bladder cancer. Will send [facility] hereditary panel. Antineopla stic chemotherapy regimen 154722708 Z51.11 Cycle 1 5FU Leucovorin Vectibix on April 29, 2023. Cycle 2 5FU Leucovorin Vectibix on May 04, 2023. Cycle 3 5FU Leucovorin Vectibix on May 11, 2023. Hypomagnesemia 050771656 E83.42 Patient returns on April 29, 2023. Magnesium level is 1.7 today. Will give 1 g magnesium IV. Hypokalemia 82471145 E87 .6 Patient returns on April 29, 2023. Potassium is low at 2.9. Will send prescripti on for potassium 20 mEq daily. Will follow-up labs again next week. Loss of appetite 8547891 6 R63.0 Patient has had nausea and decreased appetite since her cancer diagnosis. She can not tolerate her nutritiona l drinks. She does take Phenergan with relief. She continues to lose weight. Will send prescripti on for Megace. Acute conjunctivitis 537 03205 H10.32 Patient returns on May 11, 2023. She has had erythema, conjuntiva inflammati on, discharged and matted left eye. She has been using warm compresses . Will send prescripti on for eye drops for conjunctiv itis. Diarrhea 22027974 R19.7 She has had diarrhea since night. She has tried Imodium and Pepto. Discussed taking Lomotil instead. [id number] Addy Gonzales MD [facility] [address] [facility],[address] [place] [address] 05/07/2023 13:50:57 05/07/2023 15:14:30 Malignant tumor of ascending colon 247244784 C18.2 I have scheduled the patient for venous port placement. informed consent was obtained. Risks of the procedure including bleeding, infection, catheter complicati ons and damage to surroundin g structures were discussed [id number] Hanna Snider PA-C [facility] [address] [place] [address] 06/02/2023 09:27:10 06/02/2023 10:20:16 Malignant tumor of ascending colon 749753102 C18.2 CT scan of the abdomen and [...] 8.2 hematocrit 29.0. MCV 67.9. Platelet count 522687. Normal cell differenti al. Low serum folate [...] metastatic colorectal cancer. Discussed chemothera py with [place] based regimen with 5FU Leucovorin if [...] labs today. Metastatic malignant neoplasm to liver 57739172 C78.7 CT scan of the abdomen and [...] Findings concerning for metastatic colon cancer. Nausea 415004673 R11.0 As needed Zofran and Phenergan prescribed . Pain due t o neoplastic disease 9822735099 9102 G89.3 Right upper quadrant pain secondary to liver metastasis . Patient currently taking Tylenol. Discussed as needed oxycodone to limit Tylenol exposure. Anemia 449750507 D64.9 Right-side d colon mass concerning for malignancy . Will assess for any signs of iron deficiency . Most recent hemoglobin at 8.0. Concern for blood loss from colon mass. Patient reports dark stools. Adopted 488780826 Z62.89 8 Patient is adopted and discussed hereditary gene panel. Patient does have family history of her son having bladder cancer. Will send [facility] hereditary panel. Antineopla stic chemotherapy regimen 592456810 Z51.11 Cycle 1 5FU Leucovorin Vectibix on April 29, 2023. Cycle 2 5FU Leucovorin Vectibix on May 04, 2023. Cycle 3 5FU Leucovorin Vectibix on May 11, 2023. Hypomagnesemia 298392696 E83.42 Patient returns on April 29, 2023. Magnesium level is 1.7 today. Will give 1 g magnesium IV. Hypokalemia 75594589 E87 .6 Patient returns on April 29, 2023. Potassium is low at 2.9. Will send prescripti on for potassium 20 mEq daily. Will follow-up labs again next week. Loss of appetite 9837407 6 R63.0 Patient has had nausea and decreased appetite since her cancer diagnosis. She can not tolerate her nutritiona l drinks. She does take Phenergan with relief. She continues to lose weight. Will send prescripti on for Megace. Acute conjunctivitis 537 93208 H10.32 Patient returns on May 11, 2023. She has had erythema, conjuntiva inflammati on, discharged and matted left eye. She has been using warm compresses . Will send prescripti on for eye drops for conjunctiv itis. Diarrhea 97076413 R19.7 Diarrhea has resolved. Patient with recent C diff Deep venou s thrombosis 165660676 I82.409 Patient developed right lower extremity pain and edema. Venous duplex on May 28, 2023 with evidence of deep vein thrombosis . Started on Eliquis 5 mg 1 tab p.o. b.i.d.. Did not start with Eliquis starter pack due to recent bleeding. Patient had a DVT and a PE in 1990 after her hysterecto my. Will order hypercoagu lable panel today. Anxiety 58609804 F41.9 Patient has had increased anxiety. She is tearful and crying during her visit today due to all of her health problems. She does not want to take an antidepres melina at this time. Discussed low-dose Ativan. Muscle weakness 07909768 M62.81 Patient is feeling weak and is requesting a lift chair. Will see if insurance will cover. Discussed home health but patient declines at this time. [id number] Tomy King MD [facility] [address] [facility] [address] [place] [address] 06/08/2023 09:23:07 06/08/2023 11:39:14 Malignant tumor of ascending colon 502544749 C18.2 CT scan of the abdomen and [...] 8.2 hematocrit 29.0. MCV 67.9. Platelet count 708922. Normal cell differenti al. Low serum folate [...] labs today. Metastatic malignant neoplasm to liver 78045774 C78.7 CT scan of the abdomen and [...] Findings concerning for metastatic colon cancer. Nausea 190594549 R11.0 As needed Zofran and Phenergan prescribed . Pain due t o neoplastic disease 7036140973 9102 G89.3 Right upper quadrant pain secondary to liver metastasis . Patient currently taking Tylenol. Discussed as needed oxycodone to limit Tylenol exposure. Anemia 533350723 D64.9 Right-side d colon mass concerning for malignancy . Will assess for any signs of iron deficiency . Most recent hemoglobin at 8.0. Concern for blood loss from colon mass. Patient reports dark stools. Adopted 018685417 Z62.89 8 Patient is adopted and discussed hereditary gene panel. Patient does have family history of her son having bladder cancer. Will send [facility] hereditary panel. Antineopla stic chemotherapy regimen 972482616 Z51.11 Week 1 5FU Leucovorin Vectibix on [...] return for cycle 2 day 1 Hypomagnesemia 595406757 E83.42 Patient returns on April 29, 2023. Magnesium level is 1.7 today. Will give 1 g magnesium IV. Hypokalemia 77923555 E87 .6 Patient returns on April 29, 2023. Potassium is low at 2.9. Will send prescripti on for potassium 20 mEq daily. Will follow-up labs again next week. Loss of appetite 9502503 6 R63.0 Patient has had nausea and decreased appetite since her cancer diagnosis. She can not tolerate her nutritiona l drinks. She does take Phenergan with relief. She continues to lose weight. Will send prescripti on for Megace. Acute conjunctivitis 537 10049 H10.32 Patient returns on May 11, 2023. She has had erythema, conjuntiva inflammati on, discharged and matted left eye. She has been using warm compresses . Will send prescripti on for eye drops for conjunctiv itis.Will send in repeat prescripti on for eye drops. Diarrhea 79731007 R19.7 Diarrhea has resolved. Patient with recent C diff Deep venou s thrombosis 585006815 I82.409 Patient developed right lower extremity pain and edema.Veno us duplex on May 28, 2023 with evidence of deep vein thrombosis . Started on Eliquis 5 mg 1 tab p.o. b.i.d.. Did not start with Eliquis starter pack due to recent bleeding. Patient had a DVT and a PE in 1990 after her hysterecto my. Anxiety 65632930 F41.9 Patient has had increased anxiety. She is tearful and crying during her visit today due to all of her health problems. She does not want to take an antidepres melina at this time. Discussed low-dose Ativan. Improvemen t in mood overall on visit from June 08, 2023. [id number] Addy Gonzales MD [facility] [address] [place] [address] 06/05/2023 10:23:30 06/05/2023 11:32:28 Malignant tumor of ascending colon 033681952 C18.2 Needs port placed, cannot do this [...] can save her the long drive in. [id number] Tomy King MD [facility] [address] [place] [address] 06/22/2023 10:06:43 06/22/2023 12:44:59 Malignant tumor of ascending colon 776063560 C18.2 CT scan of the abdomen and [...] 8.2 hematocrit 29.0. MCV 67.9. Platelet count 205749. Normal cell differenti al. Low serum folate [...] next month. Metastatic malignant neoplasm to liver 84415250 C78.7 CT scan of the abdomen and [...] Findings concerning for metastatic colon cancer. Nausea 139361632 R11.0 As needed Zofran and Phenergan prescribed . Pain due t o neoplastic disease 8414284948 9102 G89.3 Right upper quadrant pain secondary to liver metastasis . Patient currently taking Tylenol. Discussed as needed oxycodone to limit Tylenol exposure. Anemia 600853437 D64.9 Right-side d colon mass concerning for malignancy . Will assess for any signs of iron deficiency . Most recent hemoglobin at 8.0. Concern for blood loss from colon mass. Patient reports dark stools. Adopted 547161637 Z62.89 8 Patient is adopted and discussed hereditary gene panel. Patient does have family history of her son having bladder cancer. Will send [facility] hereditary panel. Antineopla stic chemotherapy regimen 205653944 Z51.11 Week 1 5FU Leucovorin Vectibix on [...] and Vectibix on July 06, 2023. Hypokalemia 45684835 E87 .6 Patient returns on April 29, 2023. Potassium is low at 2.9. Will send prescripti on for potassium 20 mEq daily. Will follow-up labs again next week. Loss of appetite 2755830 6 R63.0 Patient has had nausea and decreased appetite since her cancer diagnosis. She can not tolerate her nutritiona l drinks. She does take Phenergan with relief. She continues to lose weight. Will send prescripti on for Megace. Acute conjunctivitis 539 47430 H10.32 Patient returns on May 11, 2023. She has had erythema, conjuntiva inflammati on, discharged and matted left eye. She has been using warm compresses . Will send prescripti on for eye drops for conjunctiv itis.Will send in repeat prescripti on for eye drops. Diarrhea 15925896 R19.7 Diarrhea has resolved. Patient with recent C diff Deep venou s thrombosis 210141309 I82.409 Patient developed right lower extremity pain and edema.Veno us duplex on May 28, 2023 with evidence of deep vein thrombosis . Started on Eliquis 5 mg 1 tab p.o. b.i.d.. Did not start with Eliquis starter pack due to recent bleeding. Patient had a DVT and a PE in 1990 after her hysterecto my. Anxiety 06542279 F41.9 Patient has had increased anxiety. She is tearful and crying during her visit today due to all of her health problems. She does not want to take an antidepres melina at this time. Discussed low-dose Ativan. Improvemen t in mood overall on visit from June 08, 2023. [id number] Tomy King MD [facility] [address] [place] [address] 07/13/2023 09:25:11 07/13/2023 10:53:59 Malignant tumor of ascending colon 591796923 C18.2 CT scan of the abdomen and [...] 8.2 hematocrit 29.0. MCV 67.9. Platelet count 811900. Normal cell differenti al. Low serum folate [...] for now. Metastatic malignant neoplasm to liver 02975949 C78.7 CT scan of the abdomen and [...] Findings concerning for metastatic colon cancer. Nausea 227163177 R11.0 As needed Zofran and Phenergan prescribed . Pain due t o neoplastic disease 0708487657 9102 G89.3 Right upper quadrant pain secondary to liver metastasis . Patient currently taking Tylenol. Discussed as needed oxycodone to limit Tylenol exposure. Anemia 565267089 D64.9 Right-side d colon mass concerning for malignancy . Will assess for any signs of iron deficiency . Most recent hemoglobin at 8.0. Concern for blood loss from colon mass. Patient reports dark stools. Adopted 307377187 Z62.89 8 Patient is adopted and discussed hereditary gene panel. Patient does have family history of her son having bladder cancer. Will send [facility] hereditary panel. Antineopla stic chemotherapy regimen 099675009 Z51.11 Week 1 5FU Leucovorin Vectibix on April 29, 2023.Week 2 5FU Leucovorin Vectibix on May 04, 2023.Week 3 5FU Leucovorin Vectibix on May 11, 2023.Week 4 5FU Leucovorin and Vectibix on June 08, 2023.Day 29 of 5FU Leucovorin and Vectibix on June 22, 2023. Cycle 2 day 1 of 5FU Leucovorin and Vectibix on July 13, 2023. Hypokalemia 42626644 E87 .6 Patient returns on April 29, 2023. Potassium is low at 2.9. Will send prescripti on for potassium 20 mEq daily. Will follow-up labs again next week. Loss of appetite 6843983 6 R63.0 Patient has had nausea and decreased appetite since her cancer diagnosis. She can not tolerate her nutritiona l drinks. She does take Phenergan with relief. She continues to lose weight. Will send prescripti on for Megace. Acute conjunctivitis 537 13331 H10.32 Patient returns on May 11, 2023. She has had erythema, conjuntiva inflammati on, discharged and matted left eye. She has been using warm compresses . Will send prescripti on for eye drops for conjunctiv itis.Will send in repeat prescripti on for eye drops. Diarrhea 07278542 R19.7 Diarrhea has resolved. Patient with recent C diff Deep venou s thrombosis 338437591 I82.411 Patient developed right lower extremity pain and edema.Veno us duplex on May 28, 2023 with evidence of deep vein thrombosis . Started on Eliquis 5 mg 1 tab p.o. b.i.d.. Did not start with Eliquis starter pack due to recent bleeding. Patient had a DVT and a PE in 1990 after her hysterecto my. Anxiety 38960563 F41.9 Patient has had increased anxiety. She is tearful and crying during her visit today due to all of her health problems. She does not want to take an antidepres melina at this time. Discussed low-dose Ativan. Improvemen t in mood overall on visit from June 08, 2023. [id number] Hanna Snider PA-C [facility] [address] [place] [address] 07/27/2023 09:02:25 07/27/2023 10:25:44 Malignant tumor of ascending colon 528951068 C18.2 CT scan of the abdomen and [...] 8.2 hematocrit 29.0. MCV 67.9. Platelet count 237649. Normal cell differenti al. Low serum folate [...] Will follow-up Metastatic malignant neoplasm to liver 76393536 C78.7 CT scan of the abdomen and [...] Findings concerning for metastatic colon cancer. Nausea 051404453 R11.0 As needed Zofran and Phenergan prescribed . Pain due t o neoplastic disease 5568786257 9102 G89.3 Right upper quadrant pain secondary to liver metastasis . Patient currently taking Tylenol. Discussed as needed oxycodone to limit Tylenol exposure. Anemia 442667879 D64.9 Right-side d colon mass concerning for malignancy . Will assess for any signs of iron deficiency . Most recent hemoglobin at 8.0. Concern for blood loss from colon mass. Patient reports dark stools. Adopted 305851022 Z62.89 8 Patient is adopted and discussed hereditary gene panel. Patient does have family history of her son having bladder cancer. Will send [facility] hereditary panel. Antineopla stic chemotherapy regimen 196255043 Z51.11 Week 1 5FU Leucovorin Vectibix on [...] and Vectibix on July 27, 2023. Hypokalemia [id number] E87 .6 Patient returns on April 29, 2023. Potassium is low at 2.9. Will send prescripti on for potassium 20 mEq daily. Will follow-up labs again next week. Loss of appetite 4832012 6 R63.0 Patient has had nausea and decreased appetite since her cancer diagnosis. She can not tolerate her nutritiona l drinks. She does take Phenergan with relief. She continues to lose weight. Will send prescripti on for Megace. Acute conjunctivitis 537 44282 H10.32 Patient returns on May 11, 2023. She has had erythema, conjuntiva inflammati on, discharged and matted left eye. She has been using warm compresses . Will send prescripti on for eye drops for conjunctiv itis.Will send in repeat prescripti on for eye drops. Diarrhea 13976640 R19.7 Diarrhea has resolved. Patient with recent C diff Deep venou s thrombosis [id number] I82.409 Patient developed right lower extremity pain and edema.Veno us duplex on May 28, 2023 with evidence of deep vein thrombosis . Started on Eliquis 5 mg 1 tab p.o. b.i.d.. Did not start with Eliquis starter pack due to recent bleeding. Patient had a DVT and a PE in 1990 after her hysterecto my. Anxiety 97823466 F41.9 Patient has had increased anxiety. She is tearful and crying during her visit today due to all of her health problems. She does not want to take an antidepres melina at this time. Discussed low-dose Ativan. Improvemen t in mood overall on visit from June 08, 2023. [id number] Hanna Snider PA-C [facility] [address] [place] [address] 08/10/2023 09:01:37 08/10/2023 09:59:21 Malignant tumor of ascending colon 723925568 C18.2 CT scan of the abdomen and [...] 8.2 hematocrit 29.0. MCV 67.9. Platelet count 974558. Normal cell differenti al. Low serum folate [...] Will follow-up. Metastatic malignant neoplasm to liver 96794865 C78.7 CT scan of the abdomen and [...] Findings concerning for metastatic colon cancer. Nausea 621378068 R11.0 As needed Zofran and Phenergan prescribed . Pain due t o neoplastic disease [id number] 9102 G89.3 Right upper quadrant pain secondary to liver metastasis . Patient currently taking Tylenol. Discussed as needed oxycodone to limit Tylenol exposure. Anemia 789362699 D64.9 Right-side d colon mass concerning for malignancy . Will assess for any signs of iron deficiency . Most recent hemoglobin at 8.0. Concern for blood loss from colon mass. Patient reports dark stools. Adopted [id number] Z62.89 8 Patient is adopted and discussed hereditary gene panel. Patient does have family history of her son having bladder cancer. Will send [facility] hereditary panel. Antineopla stic chemotherapy regimen 939838909 Z51.11 Week 1 5FU Leucovorin Vectibix on [...] and Vectibix on August 10, 2023. Hypokalemia 32744948 E87 .6 Patient returns on April 29, 2023. Potassium is low at 2.9. Will send prescripti on for potassium 20 mEq daily. Will follow-up labs again next week. Loss of appetite 4346250 6 R63.0 Patient has had nausea and decreased appetite since her cancer diagnosis. She can not tolerate her nutritiona l drinks. She does take Phenergan with relief. She continues to lose weight. Will send prescripti on for Megace. Acute conjunctivitis 809 20177 H10.32 Patient returns on May 11, 2023. She has had erythema, conjuntiva inflammati on, discharged and matted left eye. She has been using warm compresses . Will send prescripti on for eye drops for conjunctiv itis.Will send in repeat prescripti on for eye drops. Diarrhea 63264019 R19.7 Diarrhea has resolved. Patient with recent C diff Deep venou s thrombosis [id number] I82.409 Patient developed right lower extremity pain and edema.Veno us duplex on May 28, 2023 with evidence of deep vein thrombosis . Started on Eliquis 5 mg 1 tab p.o. b.i.d.. Did not start with Eliquis starter pack due to recent bleeding. Patient had a DVT and a PE in 1990 after her hysterecto my. Anxiety 65365183 F41.9 Patient has had increased anxiety. She is tearful and crying during her visit today due to all of her health problems. She does not want to take an antidepres melina at this time. Discussed low-dose Ativan. Improvemen t in mood overall on visit from June 08, 2023. [id number] Hanna Snider PA-C [facility] [address] [place] [address] 08/24/2023 09:22:37 08/24/2023 09:52:19 Malignant tumor of ascending colon 957763056 C18.2 CT scan of the abdomen and [...] 8.2 hematocrit 29.0. MCV 67.9. Platelet count 033743. Normal cell differenti al. Low serum folate [...] Will follow-up Metastatic malignant neoplasm to liver 03037905 C78.7 CT scan of the abdomen and [...] Findings concerning for metastatic colon cancer. Nausea 401618690 R11.0 As needed Zofran and Phenergan prescribed . Pain due t o neoplastic disease 0207872713 9102 G89.3 Right upper quadrant pain secondary to liver metastasis . Patient currently taking Tylenol. Discussed as needed oxycodone to limit Tylenol exposure. Anemia 862746076 D64.9 Right-side d colon mass concerning for malignancy . Will assess for any signs of iron deficiency . Most recent hemoglobin at 8.0. Concern for blood loss from colon mass. Patient reports dark stools. Adopted 640182951 Z62.89 8 Patient is adopted and discussed hereditary gene panel. Patient does have family history of her son having bladder cancer. Will send [facility] hereditary panel. Antineopla stic chemotherapy regimen 207081553 Z51.11 Week 1 5FU Leucovorin Vectibix on [...] and Vectibix on August 24, 2023. Hypokalemia 35525968 E87 .6 Patient returns on April 29, 2023. Potassium is low at 2.9. Will send prescripti on for potassium 20 mEq daily. Will follow-up labs again next week. Loss of appetite 9441337 6 R63.0 Patient has had nausea and decreased appetite since her cancer diagnosis. She can not tolerate her nutritiona l drinks. She does take Phenergan with relief. She continues to lose weight. Will send prescripti on for Megace. Acute conjunctivitis 537 58951 H10.32 Patient returns on May 11, 2023. She has had erythema, conjuntiva inflammati on, discharged and matted left eye. She has been using warm compresses . Will send prescripti on for eye drops for conjunctiv itis.Will send in repeat prescripti on for eye drops. Diarrhea 75813669 R19.7 Diarrhea has resolved. Patient with recent C diff Deep venou s thrombosis 501888931 I82.409 Patient developed right lower extremity pain and edema.Veno us duplex on May 28, 2023 with evidence of deep vein thrombosis . Started on Eliquis 5 mg 1 tab p.o. b.i.d.. Did not start with Eliquis starter pack due to recent bleeding. Patient had a DVT and a PE in 1990 after her hysterecto my. Anxiety 31164436 F41.9 Patient has had increased anxiety. She is tearful and crying during her visit today due to all of her health problems. She does not want to take an antidepres melina at this time. Discussed low-dose Ativan. Improvemen t in mood overall on visit from June 08, 2023. [id number] Hanna Snider PA-C [facility] [address] [place] [address] 09/07/2023 08:42:30 09/07/2023 09:21:28 Malignant tumor of ascending colon 731168529 C18.2 CT scan of the abdomen and [...] 8.2 hematocrit 29.0. MCV 67.9. Platelet count 351797. Normal cell differenti al. Low serum folate [...] Will follow-up. Metastatic malignant neoplasm to liver 16897131 C78.7 CT scan of the abdomen and [...] Findings concerning for metastatic colon cancer. Nausea 064806832 R11.0 As needed Zofran and Phenergan prescribed . Pain due t o neoplastic disease 1139373522 9102 G89.3 Right upper quadrant pain secondary to liver metastasis . Patient currently taking Tylenol. Discussed as needed oxycodone to limit Tylenol exposure. Anemia 661213498 D64.9 Right-side d colon mass concerning for malignancy . Will assess for any signs of iron deficiency . Most recent hemoglobin at 8.0. Concern for blood loss from colon mass. Patient reports dark stools. Adopted 247700386 Z62.89 8 Patient is adopted and discussed hereditary gene panel. Patient does have family history of her son having bladder cancer. Will send [facility] hereditary panel. Antineopla stic chemotherapy regimen 696145375 Z51.11 Week 1 5FU Leucovorin Vectibix on [...] Vectibix today secondary to conjunctiv itis Hypokalemia 01426927 E87 .6 Patient returns on April 29, 2023. Potassium is low at 2.9. Will send prescripti on for potassium 20 mEq daily. Will follow-up labs again next week. Loss of appetite 4589523 6 R63.0 Patient has had nausea and decreased appetite since her cancer diagnosis. She can not tolerate her nutritiona l drinks. She does take Phenergan with relief. She continues to lose weight. Will send prescripti on for Megace. Acute conjunctivitis 537 97633 H10.32 Patient returns on May 11, 2023. She has had erythema, conjuntiva inflammati on, discharged and matted left eye. She has been using warm compresses . Will send prescripti on for eye drops for conjunctiv itis.Will send in repeat prescripti on for eye drops. Diarrhea 49786924 R19.7 Diarrhea has resolved. Patient with recent C diff Deep venou s thrombosis 085731474 I82.409 Patient developed right lower extremity pain and edema.Veno us duplex on May 28, 2023 with evidence of deep vein thrombosis . Started on Eliquis 5 mg 1 tab p.o. b.i.d.. Did not start with Eliquis starter pack due to recent bleeding. Patient had a DVT and a PE in 1990 after her hysterecto my. Anxiety 08035699 F41.9 Patient has had increased anxiety. She is tearful and crying during her visit today due to all of her health problems. She does not want to take an antidepres melina at this time. Discussed low-dose Ativan. Improvemen t in mood overall on visit from June 08, 2023. [id number] Tomy King MD [facility] [address] [place] [address] 09/21/2023 09:41:41 09/21/2023 11:20:44 Malignant tumor of ascending colon 422736727 C18.2 CT scan of the abdomen and [...] 8.2 hematocrit 29.0. MCV 67.9. Platelet count 185334. Normal cell differenti al. Low serum folate [...] to improve. Metastatic malignant neoplasm to liver 69119664 C78.7 CT scan of the abdomen and [...] Findings concerning for metastatic colon cancer. Nausea 194189665 R11.0 As needed Zofran and Phenergan prescribed . Pain due t o neoplastic disease 8110741838 9102 G89.3 Right upper quadrant pain secondary to liver metastasis . Patient currently taking Tylenol. Discussed as needed oxycodone to limit Tylenol exposure. Anemia 871895105 D64.9 Right-side d colon mass concerning for malignancy . Will assess for any signs of iron deficiency . Most recent hemoglobin at 8.0. Concern for blood loss from colon mass. Patient reports dark stools. Adopted 255678838 Z62.89 8 Patient is adopted and discussed hereditary gene panel. Patient does have family history of her son having bladder cancer. Will send [facility] hereditary panel. Antineopla stic chemotherapy regimen 592331176 Z51.11 Week 1 5FU Leucovorin Vectibix on [...] dose held secondary to conjunctiv itis. Hypokalemia 80544073 E87 .6 Patient returns on April 29, 2023. Potassium is low at 2.9. Will send prescripti on for potassium 20 mEq daily. Will follow-up labs again next week. Loss of appetite 5458335 6 R63.0 Patient has had nausea and decreased appetite since her cancer diagnosis. She can not tolerate her nutritiona l drinks. She does take Phenergan with relief. She continues to lose weight. Will send prescripti on for Megace. Acute conjunctivitis 537 52310 H10.32 Patient returns on May 11, 2023. She has had erythema, conjuntiva inflammati on, discharged and matted left eye. She has been using warm compresses . Will send prescripti on for eye drops for conjunctiv itis.Will send in repeat prescripti on for eye drops. Diarrhea 85101530 R19.7 Diarrhea has resolved. Patient with recent C diff Deep venou s thrombosis 246295975 I82.409 Patient developed right lower extremity pain and edema.Veno us duplex on May 28, 2023 with evidence of deep vein thrombosis . Started on Eliquis 5 mg 1 tab p.o. b.i.d.. Did not start with Eliquis starter pack due to recent bleeding. Patient had a DVT and a PE in 1990 after her hysterecto my. Anxiety 13884068 F41.9 Patient has had increased anxiety. She is tearful and crying during her visit today due to all of her health problems. She does not want to take an antidepres melina at this time. Discussed low-dose Ativan. Improvemen t in mood overall on visit from June 08, 2023. [id number] Hanna Snider PA-C [facility] [address] [place] [address] 10/05/2023 09:19:08 10/05/2023 10:17:18 Malignant tumor of ascending colon 783398893 C18.2 CT scan of the abdomen and [...] 8.2 hematocrit 29.0. MCV 67.9. Platelet count 258662. Normal cell differenti al. Low serum folate [...] bilaterall y. Metastatic malignant neoplasm to liver 54232715 C78.7 CT scan of the abdomen and [...] Findings concerning for metastatic colon cancer. Nausea 210076962 R11.0 As needed Zofran and Phenergan prescribed . Pain due t o neoplastic disease 2162931443 9102 G89.3 Right upper quadrant pain secondary to liver metastasis . Patient currently taking Tylenol. Discussed as needed oxycodone to limit Tylenol exposure. Anemia 461222453 D64.9 Right-side d colon mass concerning for malignancy . Will assess for any signs of iron deficiency . Most recent hemoglobin at 8.0. Concern for blood loss from colon mass. Patient reports dark stools. Adopted 958912291 Z62.89 8 Patient is adopted and discussed hereditary gene panel. Patient does have family history of her son having bladder cancer. Will send [facility] hereditary panel. Antineopla stic chemotherapy regimen 540535535 Z51.11 Week 1 5FU Leucovorin Vectibix on [...] membranes of the eyes bilaterall y. Hypokalemia 94599943 E87 .6 Patient returns on April 29, 2023. Potassium is low at 2.9. Will send prescripti on for potassium 20 mEq daily. Will follow-up labs again next week. Loss of appetite 7264267 6 R63.0 Patient has had nausea and decreased appetite since her cancer diagnosis. She can not tolerate her nutritiona l drinks. She does take Phenergan with relief. She continues to lose weight. Will send prescripti on for Megace. Acute conjunctivitis 537 39095 H10.32 Patient returns on May 11, 2023. She has had erythema, conjuntiva inflammati on, discharged and matted left eye. She has been using warm compresses . Will send prescripti on for eye drops for conjunctiv itis.Will send in repeat prescripti on for eye drops. Diarrhea 71210258 R19.7 Diarrhea has resolved. Patient with recent C diff Deep venou s thrombosis 454029502 I82.409 Patient developed right lower extremity pain and edema.Veno us duplex on May 28, 2023 with evidence of deep vein thrombosis . Started on Eliquis 5 mg 1 tab p.o. b.i.d.. Did not start with Eliquis starter pack due to recent bleeding. Patient had a DVT and a PE in 1990 after her hysterecto my. Anxiety 90911074 F41.9 Patient has had increased anxiety. She is tearful and crying during her visit today due to all of her health problems. She does not want to take an antidepres melina at this time. Discussed low-dose Ativan. Improvemen t in mood overall on visit from June 08, 2023. [id number] Hanna Snider PA-C [facility] [address] [place] [address] 10/19/2023 09:07:50 10/19/2023 10:19:57 Malignant tumor of ascending colon 473281588 C18.2 CT scan of the abdomen and [...] 8.2 hematocrit 29.0. MCV 67.9. Platelet count 834769. Normal cell differenti al. Low serum folate [...] ly over the weekend. She is grieving juaniat froilan. Metastatic malignant neoplasm to liver 85729413 C78.7 CT scan of the abdomen and [...] Findings concerning for metastatic colon cancer. Nausea 109701054 R11.0 As needed Zofran and Phenergan prescribed . Pain due t o neoplastic disease 9455686317 9102 G89.3 Right upper quadrant pain secondary to liver metastasis . Patient currently taking Tylenol. Discussed as needed oxycodone to limit Tylenol exposure. Anemia 851876989 D64.9 Right-side d colon mass concerning for malignancy . Will assess for any signs of iron deficiency . Most recent hemoglobin at 8.0. Concern for blood loss from colon mass. Patient reports dark stools. Adopted 500397592 Z62.89 8 Patient is adopted and discussed hereditary gene panel. Patient does have family history of her son having bladder cancer. Will send [facility] hereditary panel. Antineopla stic chemotherapy regimen 510945552 Z51.11 Week 1 5FU Leucovorin Vectibix on [...] with Vectibix on October 19, 2023. Hypokalemia 81943688 E87 .6 Patient returns on April 29, 2023. Potassium is low at 2.9. Will send prescripti on for potassium 20 mEq daily. Will follow-up labs again next week. Loss of appetite 4482268 6 R63.0 Patient has had nausea and decreased appetite since her cancer diagnosis. She can not tolerate her nutritiona l drinks. She does take Phenergan with relief. She continues to lose weight. Will send prescripti on for Megace. Acute conjunctivitis 537 75271 H10.32 Patient returns on May 11, 2023. She has had erythema, conjuntiva inflammati on, discharged and matted left eye. She has been using warm compresses . Will send prescripti on for eye drops for conjunctiv itis.Will send in repeat prescripti on for eye drops. Diarrhea 23257366 R19.7 Diarrhea has resolved. Patient with recent C diff Deep venou s thrombosis 399211238 I82.409 Patient developed right lower extremity pain and edema.Veno us duplex on May 28, 2023 with evidence of deep vein thrombosis . Started on Eliquis 5 mg 1 tab p.o. b.i.d.. Did not start with Eliquis starter pack due to recent bleeding. Patient had a DVT and a PE in 1990 after her hysterecto my. Anxiety 10910347 F41.9 Patient has had increased anxiety. She is tearful and crying during her visit today due to all of her health problems. She does not want to take an antidepres melina at this time. Discussed low-dose Ativan. Improvemen t in mood overall on visit from June 08, 2023. [id number] Hanna Snider PA-C [facility] [address] [place] [address] 11/02/2023 09:20:10 11/02/2023 09:58:16 Malignant tumor of ascending colon 569414750 C18.2 CT scan of the abdomen and [...] 8.2 hematocrit 29.0. MCV 67.9. Platelet count 354812. Normal cell differenti al. Low serum folate [...] ed Eliquis Metastatic malignant neoplasm to liver 15573869 C78.7 CT scan of the abdomen and [...] Findings concerning for metastatic colon cancer. Nausea 030389489 R11.0 As needed Zofran and Phenergan prescribed . Pain due t o neoplastic disease 7278107853 9102 G89.3 Right upper quadrant pain secondary to liver metastasis . Patient currently taking Tylenol. Discussed as needed oxycodone to limit Tylenol exposure. Anemia 819279102 D64.9 Right-side d colon mass concerning for malignancy . Will assess for any signs of iron deficiency . Most recent hemoglobin at 8.0. Concern for blood loss from colon mass. Patient reports dark stools. Adopted 581122360 Z62.89 8 Patient is adopted and discussed hereditary gene panel. Patient does have family history of her son having bladder cancer. Will send [facility] hereditary panel. Antineopla stic chemotherapy regimen 544008185 Z51.11 Week 1 5FU Leucovorin Vectibix on [...] with Vectibix on November 02, 2023. Hypokalemia 51174076 E87 .6 Patient returns on April 29, 2023. Potassium is low at 2.9. Will send prescripti on for potassium 20 mEq daily. Will follow-up labs again next week. Loss of appetite 5493886 6 R63.0 Patient has had nausea and decreased appetite since her cancer diagnosis. She can not tolerate her nutritiona l drinks. She does take Phenergan with relief. She continues to lose weight. Will send prescripti on for Megace. Acute conjunctivitis 537 06797 H10.32 Patient returns on May 11, 2023. She has had erythema, conjuntiva inflammati on, discharged and matted left eye. She has been using warm compresses . Will send prescripti on for eye drops for conjunctiv itis.Will send in repeat prescripti on for eye drops. Diarrhea 76667145 R19.7 Diarrhea has resolved. Patient with recent C diff Deep venou s thrombosis 003135963 I82.409 Patient developed right lower extremity pain and edema.Veno us duplex on May 28, 2023 with evidence of deep vein thrombosis . Started on Eliquis 5 mg 1 tab p.o. b.i.d.. Did not start with Eliquis starter pack due to recent bleeding. Patient had a DVT and a PE in 1990 after her hysterecto my. Anxiety 16755504 F41.9 Patient has had increased anxiety. She is tearful and crying during her visit today due to all of her health problems. She does not want to take an antidepres melina at this time. Discussed low-dose Ativan. Improvemen t in mood overall on visit from June 08, 2023. [id number] Addy Gonzales MD [facility] [address] [place] [address],[address] [place] [address] 11/03/2023 13:09:58 11/03/2023 14:02:01 Malignant tumor of ascending colon 098259046 C18.2 I have scheduled the patient for [...] as a part of this patient's care. [id number] Hanna Snider PA-C [facility] [address] [place] [address] 11/23/2023 09:05:54 11/23/2023 09:52:19 Malignant tumor of ascending colon 778648133 C18.2 CT scan of the abdomen and [...] 8.2 hematocrit 29.0. MCV 67.9. Platelet count 505533. Normal cell differenti al. Low serum folate [...] mg daily. Metastatic malignant neoplasm to liver 21354321 C78.7 CT scan of the abdomen and [...] Findings concerning for metastatic colon cancer. Nausea 875787571 R11.0 As needed Zofran and Phenergan prescribed . Pain due t o neoplastic disease 8776031926 9102 G89.3 Right upper quadrant pain secondary to liver metastasis . Patient currently taking Tylenol. Discussed as needed oxycodone to limit Tylenol exposure. Anemia 335833617 D64.9 Right-side d colon mass concerning for malignancy . Will assess for any signs of iron deficiency . Most recent hemoglobin at 8.0. Concern for blood loss from colon mass. Patient reports dark stools. Adopted 956893051 Z62.89 8 Patient is adopted and discussed hereditary gene panel. Patient does have family history of her son having bladder cancer. Will send [facility] hereditary panel. Antineopla stic chemotherapy regimen 756217031 Z51.11 Week 1 5FU Leucovorin Vectibix on [...] with Vectibix on November 23, 2023. Hypokalemia 65712861 E87 .6 Patient returns on April 29, 2023. Potassium is low at 2.9. Will send prescripti on for potassium 20 mEq daily. Will follow-up labs again next week. Loss of appetite 3671893 6 R63.0 Patient has had nausea and decreased appetite since her cancer diagnosis. She can not tolerate her nutritiona l drinks. She does take Phenergan with relief. She continues to lose weight. Will send prescripti on for Megace. Acute conjunctivitis 537 97733 H10.32 Patient returns on May 11, 2023. She has had erythema, conjuntiva inflammati on, discharged and matted left eye. She has been using warm compresses . Will send prescripti on for eye drops for conjunctiv itis.Will send in repeat prescripti on for eye drops. Diarrhea 18647617 R19.7 Diarrhea has resolved. Patient with recent C diff Deep venou s thrombosis 191058996 I82.409 Patient developed right lower extremity pain and edema.Veno us duplex on May 28, 2023 with evidence of deep vein thrombosis . Started on Eliquis 5 mg 1 tab p.o. b.i.d.. Did not start with Eliquis starter pack due to recent bleeding. Patient had a DVT and a PE in 1990 after her hysterecto my. Anxiety 46931049 F41.9 Patient has had increased anxiety. She is tearful and crying during her visit today due to all of her health problems. She does not want to take an antidepres melina at this time. Discussed low-dose Ativan. Improvemen t in mood overall on visit from June 08, 2023. Mixed anxi ety and depressive disorder 607850637 F41.8 Patient returns on November 23, 2023. [...] Mirtazapin e dose to 30 mg daily. [id number] Tomy King MD [facility] [address] [place] [address] 12/07/2023 09:01:54 12/07/2023 09:40:34 Malignant tumor of ascending colon 406730940 C18.2 CT scan of the abdomen and [...] 8.2 hematocrit 29.0. MCV 67.9. Platelet count 951327. Normal cell differenti al. Low serum folate [...] 2 weeks. Metastatic malignant neoplasm to liver 17919166 C78.7 CT scan of the abdomen and [...] Findings concerning for metastatic colon cancer. Nausea 413530344 R11.0 As needed Zofran and Phenergan prescribed . Pain due t o neoplastic disease [id number] 9102 G89.3 Right upper quadrant pain secondary to liver metastasis . Patient currently taking Tylenol. Discussed as needed oxycodone to limit Tylenol exposure. Anemia 417769456 D64.9 Right-side d colon mass concerning for malignancy . Will assess for any signs of iron deficiency . Most recent hemoglobin at 8.0. Concern for blood loss from colon mass. Patient reports dark stools. Adopted [id number] Z62.89 8 Patient is adopted and discussed hereditary gene panel. Patient does have family history of her son having bladder cancer. Will send [facility] hereditary panel. Antineopla stic chemotherapy regimen 383524424 Z51.11 Week 1 5FU Leucovorin Vectibix on [...] with Vectibix on December 07, 2023. Hypokalemia 27215346 E87 .6 Patient returns on April 29, 2023. Potassium is low at 2.9. Will send prescripti on for potassium 20 mEq daily. Will follow-up labs again next week. Deep venou s thrombosis 385464734 I82.409 Patient developed right lower extremity pain and edema.Veno us duplex on May 28, 2023 with evidence of deep vein thrombosis . Started on Eliquis 5 mg 1 tab p.o. b.i.d.. Did not start with Eliquis starter pack due to recent bleeding. Patient had a DVT and a PE in 1990 after her hysterecto my. Mixed anxi ety and depressive disorder 795300197 F41.8 Patient returns on November 23, 2023. [...] to 30 mg daily. Atopic conjunctivitis 23 3339945 H10.12 Patient with conjunctiv itis of the left eye. Holding Vectibix today on December 07, 2023. Continue with current therapy. Will follow up again in 2 weeks. [id number] Hanna Snider PA-C [facility] [address] [place] [address] 12/21/2023 09:48:25 12/21/2023 10:21:03 Malignant tumor of ascending colon 280732364 C18.2 CT scan of the abdomen and [...] 8.2 hematocrit 29.0. MCV 67.9. Platelet count 664955. Normal cell differenti al. Low serum folate [...] 2 weeks. Metastatic malignant neoplasm to liver 18214032 C78.7 CT scan of the abdomen and [...] Findings concerning for metastatic colon cancer. Nausea 560759385 R11.0 As needed Zofran and Phenergan prescribed . Pain due t o neoplastic disease 6003336057 9102 G89.3 Right upper quadrant pain secondary to liver metastasis . Patient currently taking Tylenol. Discussed as needed oxycodone to limit Tylenol exposure. Anemia 896076562 D64.9 Right-side d colon mass concerning for malignancy . Will assess for any signs of iron deficiency . Most recent hemoglobin at 8.0. Concern for blood loss from colon mass. Patient reports dark stools. Adopted [id number] Z62.89 8 Patient is adopted and discussed hereditary gene panel. Patient does have family history of her son having bladder cancer. Will send [facility] hereditary panel. Antineopla stic chemotherapy regimen 942667259 Z51.11 Week 1 5FU Leucovorin Vectibix on [...] with Vectibix on November 21, 2023. Hypokalemia 99958704 E87 .6 Patient returns on April 29, 2023. Potassium is low at 2.9. Will send prescripti on for potassium 20 mEq daily. Will follow-up labs again next week. Deep venou s thrombosis 431149032 I82.409 Patient developed right lower extremity pain and edema.Veno us duplex on May 28, 2023 with evidence of deep vein thrombosis . Started on Eliquis 5 mg 1 tab p.o. b.i.d.. Did not start with Eliquis starter pack due to recent bleeding. Patient had a DVT and a PE in 1990 after her hysterecto my. Mixed anxi ety and depressive disorder 777502571 F41.8 Patient returns on November 23, 2023. [...] to 30 mg daily. Atopic conjunctivitis 23 3011433 H10.12 Patient with conjunctiv itis of the left eye. Held Vectibix on December 07, 2023. Continue with current therapy. Will follow up again in 2 weeks. [id number] Hanna Snider PA-C [facility] [address] [place] [address] 01/04/2024 09:55:59 01/04/2024 10:32:04 Malignant tumor of ascending colon 524271270 C18.2 CT scan of the abdomen and [...] 8.2 hematocrit 29.0. MCV 67.9. Platelet count 720126. Normal cell differenti al. Low serum folate [...] January 2024. Metastatic malignant neoplasm to liver 58411595 C78.7 CT scan of the abdomen and [...] Findings concerning for metastatic colon cancer. Nausea 512463982 R11.0 As needed Zofran and Phenergan prescribed . Pain due t o neoplastic disease 2270944227 9102 G89.3 Right upper quadrant pain secondary to liver metastasis . Patient currently taking Tylenol. Discussed as needed oxycodone to limit Tylenol exposure. Anemia 923862249 D64.9 Right-side d colon mass concerning for malignancy . Will assess for any signs of iron deficiency . Most recent hemoglobin at 8.0. Concern for blood loss from colon mass. Patient reports dark stools. Adopted [id number] Z62.89 8 Patient is adopted and discussed hereditary gene panel. Patient does have family history of her son having bladder cancer. Will send [facility] hereditary panel. Antineopla stic chemotherapy regimen 582868079 Z51.11 Week 1 5FU Leucovorin Vectibix on [...] without Vectibix on January 04, 2024. Hypokalemia 64071387 E87 .6 Patient returns on April 29, 2023. Potassium is low at 2.9. Will send prescripti on for potassium 20 mEq daily. Will follow-up labs again next week. Deep venou s thrombosis 820060391 I82.409 Patient developed right lower extremity pain and edema.Veno us duplex on May 28, 2023 with evidence of deep vein thrombosis . Started on Eliquis 5 mg 1 tab p.o. b.i.d.. Did not start with Eliquis starter pack due to recent bleeding. Patient had a DVT and a PE in 1990 after her hysterecto my. Mixed anxi ety and depressive disorder 646496558 F41.8 Patient returns on November 23, 2023. [...] to 30 mg daily. Atopic conjunctivitis 23 8818647 H10.12 Patient with conjunctiv itis of the left eye. Held Vectibix on December 07, 2023. Continue with current therapy. Will follow up again in 2 weeks. Iron defic iency anemia 14797740 D50.9 [id number] Hanna Snider PA-C [facility] [address] [place] [address] 01/25/2024 09:42:09 01/25/2024 10:49:14 Malignant tumor of ascending colon 658222072 C18.2 CT scan of the abdomen and [...] 8.2 hematocrit 29.0. MCV 67.9. Platelet count 714179. Normal cell differenti al. Low serum folate [...] Will schedule. Metastatic malignant neoplasm to liver 44265798 C78.7 CT scan of the abdomen and [...] Findings concerning for metastatic colon cancer. Nausea 305636255 R11.0 As needed Zofran and Phenergan prescribed . Pain due t o neoplastic disease 0539621471 9102 G89.3 Right upper quadrant pain secondary to liver metastasis . Patient currently taking Tylenol. Discussed as needed oxycodone to limit Tylenol exposure. Anemia 445583515 D64.9 Right-side d colon mass concerning for malignancy . Will assess for any signs of iron deficiency . Most recent hemoglobin at 8.0. Concern for blood loss from colon mass. Patient reports dark stools. Adopted 398261128 Z62.89 8 Patient is adopted and discussed hereditary gene panel. Patient does have family history of her son having bladder cancer. Will send [facility] hereditary panel. Antineopla stic chemotherapy regimen 867959125 Z51.11 Week 1 5FU Leucovorin Vectibix on [...] with Vectibix on January 25, 2024. Hypokalemia 92120751 E87 .6 Patient returns on April 29, 2023. Potassium is low at 2.9. Will send prescripti on for potassium 20 mEq daily. Will follow-up labs again next week. Deep venou s thrombosis 979331576 I82.409 Patient developed right lower extremity pain and edema.Veno us duplex on May 28, 2023 with evidence of deep vein thrombosis . Started on Eliquis 5 mg 1 tab p.o. b.i.d.. Did not start with Eliquis starter pack due to recent bleeding. Patient had a DVT and a PE in 1990 after her hysterecto my. Mixed anxi ety and depressive disorder 051474744 F41.8 Patient returns on November 23, 2023. [...] to 30 mg daily. Atopic conjunctivitis 23 9007026 H10.12 Patient with conjunctiv itis of the left eye. Held Vectibix on December 07, 2023. Continue with current therapy. Will follow up again in 2 weeks. Iron defic iency anemia 86325751 D50.9 [id number] Hanna Snider PA-C [facility] [address] [place] [address] 02/08/2024 09:30:04 02/08/2024 10:49:29 Malignant tumor of ascending colon 488376199 C18.2 CT scan of the abdomen and [...] 8.2 hematocrit 29.0. MCV 67.9. Platelet count 936982. Normal cell differenti al. Low serum folate [...] follow-up imaging. Metastatic malignant neoplasm to liver 31978554 C78.7 CT scan of the abdomen and [...] Findings concerning for metastatic colon cancer. Nausea 674828546 R11.0 As needed Zofran and Phenergan prescribed . Pain due t o neoplastic disease 0644820777 9102 G89.3 Right upper quadrant pain secondary to liver metastasis . Patient currently taking Tylenol. Discussed as needed oxycodone to limit Tylenol exposure. Anemia 503037723 D64.9 Right-side d colon mass concerning for malignancy . Will assess for any signs of iron deficiency . Most recent hemoglobin at 8.0. Concern for blood loss from colon mass. Patient reports dark stools. Adopted 545998882 Z62.89 8 Patient is adopted and discussed hereditary gene panel. Patient does have family history of her son having bladder cancer. Will send [facility] hereditary panel. Antineopla stic chemotherapy regimen 370252184 Z51.11 Week 1 5FU Leucovorin Vectibix on [...] without Vectibix on February 08, 2024. Hypokalemia 43331547 E87 .6 Patient returns on April 29, 2023. Potassium is low at 2.9. Will send prescripti on for potassium 20 mEq daily. Will follow-up labs again next week. Deep venou s thrombosis 185415947 I82.409 Patient developed right lower extremity pain and edema.Veno us duplex on May 28, 2023 with evidence of deep vein thrombosis . Started on Eliquis 5 mg 1 tab p.o. b.i.d.. Did not start with Eliquis starter pack due to recent bleeding. Patient had a DVT and a PE in 1990 after her hysterecto my. Mixed anxi ety and depressive disorder 005475609 F41.8 Patient returns on November 23, 2023. [...] to 30 mg daily. Atopic conjunctivitis 23 1596669 H10.12 Patient with conjunctiv itis of the left eye. Held Vectibix on December 07, 2023. Continue with current therapy. Will follow up again in 2 weeks. Iron defic iency anemia 40075785 D50.9 Will follow up labs Insomnia 171082429 G47.0 0 Patient returns on February 08, 2024. She has had difficulty sleeping for most of her life. She has tried multiple medication s without relief. She is tried Mirtazapin e and lorazepam without improvemen t of insomnia. Discussed trying trazodone instead. Will send prescripti on. Will send prescripti on for Requip for restless legs. Restless legs 04908350 G 25.81 Patient returns on February 08, 2024. She has had difficulty sleeping for most of her life. She has tried multiple medication s without relief. She is tried Mirtazapin e and lorazepam without improvemen t of insomnia. Discussed trying trazodone instead. Will send prescripti on. Will send prescripti on for Requip for restless legs. [id number] Hanna Snider PA-C [facility] [address] [facility] [address] [place] [address] 02/22/2024 10:08:45 02/22/2024 10:41:02 Malignant tumor of ascending colon 292416476 C18.2 CT scan of the abdomen and [...] 8.2 hematocrit 29.0. MCV 67.9. Platelet count 974019. Normal cell differenti al. Low serum folate [...] 15, 2024. Metastatic malignant neoplasm to liver 57439454 C78.7 CT scan of the abdomen and [...] Findings concerning for metastatic colon cancer. Nausea 726669198 R11.0 As needed Zofran and Phenergan prescribed . Pain due t o neoplastic disease 8540502010 9102 G89.3 Right upper quadrant pain secondary to liver metastasis . Patient currently taking Tylenol. Discussed as needed oxycodone to limit Tylenol exposure. Anemia 388133572 D64.9 Right-side d colon mass concerning for malignancy . Will assess for any signs of iron deficiency . Most recent hemoglobin at 8.0. Concern for blood loss from colon mass. Patient reports dark stools. Adopted 774938080 Z62.89 8 Patient is adopted and discussed hereditary gene panel. Patient does have family history of her son having bladder cancer. Will send [facility] hereditary panel. Antineopla stic chemotherapy regimen 525291163 Z51.11 Week 1 5FU Leucovorin Vectibix on [...] with Vectibix on February 22, 2024. Hypokalemia 26250286 E87 .6 Patient returns on April 29, 2023. Potassium is low at 2.9. Will send prescripti on for potassium 20 mEq daily. Will follow-up labs again next week. Deep venou s thrombosis 347121741 I82.409 Patient developed right lower extremity pain and edema.Veno us duplex on May 28, 2023 with evidence of deep vein thrombosis . Started on Eliquis 5 mg 1 tab p.o. b.i.d.. Did not start with Eliquis starter pack due to recent bleeding. Patient had a DVT and a PE in 1990 after her hysterecto my. Mixed anxi ety and depressive disorder 181925920 F41.8 Patient returns on November 23, 2023. [...] to 30 mg daily. Atopic conjunctivitis 23 1820781 H10.12 Patient with conjunctiv itis of the left eye. Held Vectibix on December 07, 2023. Continue with current therapy. Will follow up again in 2 weeks. Iron defic iency anemia 81342803 D50.9 Will follow up labs Insomnia 882610296 G47.0 0 Patient returns on February 08, 2024. She has had difficulty sleeping for most of her life. She has tried multiple medication s without relief. She is tried Mirtazapin e and lorazepam without improvemen t of insomnia. Discussed trying trazodone instead. Will send prescripti on. Will send prescripti on for Requip for restless legs. Restless legs 64335789 G 25.81 Patient returns on February 08, 2024. She has had difficulty sleeping for most of her life. She has tried multiple medication s without relief. She is tried Mirtazapin e and lorazepam without improvemen t of insomnia. Discussed trying trazodone instead. Will send prescripti on. Will send prescripti on for Requip for restless legs. Infection of skin and/or subcutaneous tissue 13503144 L08.9 Patient returns on February 22, 2024. Patient has paronychia of the left ring finger after pulling a piece of loose skin yesterday. No abscess or drainage present. Discussed topical antibiotic s plus warm water soaks. Will send prescripti on. Discussed if does not improve or worsens will do oral antibiotic s. Will follow-up. [id number] Hanna Snider PA-C [facility] [address] [facility] [address] [place] [address] 03/07/2024 10:12:33 03/07/2024 11:14:04 Malignant tumor of ascending colon 317873627 C18.2 CT scan of the abdomen and [...] 8.2 hematocrit 29.0. MCV 67.9. Platelet count 303112. Normal cell differenti al. Low serum folate [...] 15, 2024. Metastatic malignant neoplasm to liver 84992813 C78.7 CT scan of the abdomen and [...] Findings concerning for metastatic colon cancer. Nausea 708223894 R11.0 As needed Zofran and Phenergan prescribed . Pain due t o neoplastic disease 9414415140 9102 G89.3 Right upper quadrant pain secondary to liver metastasis . Patient currently taking Tylenol. Discussed as needed oxycodone to limit Tylenol exposure. Anemia 768621897 D64.9 Right-side d colon mass concerning for malignancy . Will assess for any signs of iron deficiency . Most recent hemoglobin at 8.0. Concern for blood loss from colon mass. Patient reports dark stools. Adopted 309141706 Z62.89 8 Patient is adopted and discussed hereditary gene panel. Patient does have family history of her son having bladder cancer. Will send [facility] hereditary panel. Antineopla stic chemotherapy regimen 047190880 Z51.11 Week 1 5FU Leucovorin Vectibix on [...] with Vectibix on March 07, 2024. Hypokalemia 08373985 E87 .6 Patient returns on April 29, 2023. Potassium is low at 2.9. Will send prescripti on for potassium 20 mEq daily. Will follow-up labs again next week. Deep venou s thrombosis 561921266 I82.409 Patient developed right lower extremity pain and edema.Veno us duplex on May 28, 2023 with evidence of deep vein thrombosis . Started on Eliquis 5 mg 1 tab p.o. b.i.d.. Did not start with Eliquis starter pack due to recent bleeding. Patient had a DVT and a PE in 1990 after her hysterecto my. Mixed anxi ety and depressive disorder 328593544 F41.8 Patient returns on November 23, 2023. [...] dose to 30 mg daily. Atopic conjunctivitis 7910693 H10.12 Patient with conjunctiv itis of the left eye. Held Vectibix on December 07, 2023. Continue with current therapy. Will follow up again in 2 weeks. Iron defic iency anemia 15735775 D50.9 Will follow up labs Insomnia 671387876 G47.0 0 Patient returns on February 08, 2024. She has had difficulty sleeping for most of her life. She has tried multiple medication s without relief. She is tried Mirtazapin e and lorazepam without improvemen t of insomnia. Discussed trying trazodone instead. Will send prescripti on. Will send prescripti on for Requip for restless legs. Restless legs 25309314 G 25.81 Patient returns on February 08, 2024. She has had difficulty sleeping for most of her life. She has tried multiple medication s without relief. She is tried Mirtazapin e and lorazepam without improvemen t of insomnia. Discussed trying trazodone instead. Will send prescripti on. Will send prescripti on for Requip for restless legs. Infection of skin and/or subcutaneous tissue 12882339 L08.9 Patient returns on February 22, 2024. Patient has paronychia of the left ring finger after pulling a piece of loose skin yesterday. No abscess or drainage present. Discussed topical antibiotic s plus warm water soaks. Will send prescripti on. Discussed if does not improve or worsens will do oral antibiotic s. Will follow-up. This has resolved. [id number] Hanna Snider PA-C [facility] [address] [place] [address] 03/21/2024 09:44:36 03/21/2024 10:52:41 Malignant tumor of ascending colon 150175576 C18.2 CT scan of the abdomen and [...] 8.2 hematocrit 29.0. MCV 67.9. Platelet count 958501. Normal cell differenti al. Low serum folate [...] current therapy. Metastatic malignant neoplasm to liver 43372882 C78.7 CT scan of the abdomen and [...] Findings concerning for metastatic colon cancer. Nausea 965610968 R11.0 As needed Zofran and Phenergan prescribed . Pain due t o neoplastic disease 3807135226 9102 G89.3 Right upper quadrant pain secondary to liver metastasis . Patient currently taking Tylenol. Discussed as needed oxycodone to limit Tylenol exposure. Anemia 690635190 D64.9 Right-side d colon mass concerning for malignancy . Will assess for any signs of iron deficiency . Most recent hemoglobin at 8.0. Concern for blood loss from colon mass. Patient reports dark stools. Adopted 623710401 Z62.89 8 Patient is adopted and discussed hereditary gene panel. Patient does have family history of her son having bladder cancer. Will send [facility] hereditary panel. Antineopla stic chemotherapy regimen 188011544 Z51.11 Week 1 5FU Leucovorin Vectibix on [...] with Vectibix on March 21, 2024. Hypokalemia 90055685 E87 .6 Patient returns on April 29, 2023. Potassium is low at 2.9. Will send prescripti on for potassium 20 mEq daily. Will follow-up labs again next week. Deep venou s thrombosis 913289262 I82.409 Patient developed right lower extremity pain and edema.Veno us duplex on May 28, 2023 with evidence of deep vein thrombosis . Started on Eliquis 5 mg 1 tab p.o. b.i.d.. Did not start with Eliquis starter pack due to recent bleeding. Patient had a DVT and a PE in 1990 after her hysterecto my. Mixed anxi ety and depressive disorder 413825906 F41.8 Patient returns on November 23, 2023. [...] to 30 mg daily. Atopic conjunctivitis 23 1062032 H10.12 Patient with conjunctiv itis of the left eye. Held Vectibix on December 07, 2023. Continue with current therapy. Will follow up again in 2 weeks. Iron defic iency anemia 06071008 D50.9 Will follow up labs Insomnia 366922251 G47.0 0 Patient returns on February 08, 2024. She has had difficulty sleeping for most of her life. She has tried multiple medication s without relief. She is tried Mirtazapin e and lorazepam without improvemen t of insomnia. Discussed trying trazodone instead. Will send prescripti on. Will send prescripti on for Requip for restless legs. Restless legs 97230574 G 25.81 Patient returns on February 08, 2024. She has had difficulty sleeping for most of her life. She has tried multiple medication s without relief. She is tried Mirtazapin e and lorazepam without improvemen t of insomnia. Discussed trying trazodone instead. Prescripti on sent for Requip for restless legs. [id number] Hanna Snider PA-C [facility] [address] [place] [address] 04/04/2024 09:54:49 04/04/2024 10:42:05 Malignant tumor of ascending colon 103908305 C18.2 CT scan of the abdomen and [...] 8.2 hematocrit 29.0. MCV 67.9. Platelet count 037408. Normal cell differenti al. Low serum folate [...] current therapy. Metastatic malignant neoplasm to liver 07567882 C78.7 CT scan of the abdomen and [...] Findings concerning for metastatic colon cancer. Nausea 278636159 R11.0 As needed Zofran and Phenergan prescribed . Pain due t o neoplastic disease 9990483827 9102 G89.3 Right upper quadrant pain secondary to liver metastasis . Patient currently taking Tylenol. Discussed as needed oxycodone to limit Tylenol exposure. Anemia 239403702 D64.9 Right-side d colon mass concerning for malignancy . Will assess for any signs of iron deficiency . Most recent hemoglobin at 8.0. Concern for blood loss from colon mass. Patient reports dark stools. Adopted 989662126 Z62.89 8 Patient is adopted and discussed hereditary gene panel. Patient does have family history of her son having bladder cancer. Will send [employer] hereditary panel. Antineopla stic chemotherapy regimen 884668924 Z51.11 Week 1 5FU Leucovorin Vectibix on [...] without Vectibix on April 04, 2024. Hypokalemia 41569425 E87 .6 Patient returns on April 29, 2023. Potassium is low at 2.9. Will send prescripti on for potassium 20 mEq daily. Will follow-up labs again next week. Deep venou s thrombosis 187642177 I82.409 Patient developed right lower extremity pain and edema.Veno us duplex on May 28, 2023 with evidence of deep vein thrombosis . Started on Eliquis 5 mg 1 tab p.o. b.i.d.. Did not start with Eliquis starter pack due to recent bleeding. Patient had a DVT and a PE in 1990 after her hysterecto my. Mixed anxi ety and depressive disorder 033637908 F41.8 Patient returns on November 23, 2023. [...] prescripti on for Cymbalta. Atopic conjunctivitis 23 7109413 H10.12 Patient with conjunctiv itis of the left eye. Held Vectibix on December 07, 2023. Continue with current therapy. Will follow up again in 2 weeks. Iron defic iency anemia 04032592 D50.9 Will follow up labs Insomnia 303083716 G47.0 0 Patient returns on February 08, 2024. She has had difficulty sleeping for most of her life. She has tried multiple medication s without relief. She is tried Mirtazapin e and lorazepam without improvemen t of insomnia. Discussed trying trazodone instead. Will send prescripti on. Will send prescripti on for Requip for restless legs. Restless legs 51716681 G 25.81 Patient returns on February 08, [...] also send prescripti on for fluconazol e. [id number] Hanna Snider PA-C [facility] [address] [place] [address] 04/18/2024 09:51:34 04/18/2024 11:21:47 Malignant tumor of ascending colon 378030090 C18.2 CT scan of the abdomen and [...] 8.2 hematocrit 29.0. MCV 67.9. Platelet count 276749. Normal cell differenti al. Low serum folate [...] current therapy. Metastatic malignant neoplasm to liver 52187620 C78.7 CT scan of the abdomen and [...] Findings concerning for metastatic colon cancer. Nausea 585586863 R11.0 As needed Zofran and Phenergan prescribed . Pain due t o neoplastic disease [id number] 9102 G89.3 Right upper quadrant pain secondary to liver metastasis . Patient currently taking Tylenol. Discussed as needed oxycodone to limit Tylenol exposure. Anemia 462572075 D64.9 Right-side d colon mass concerning for malignancy . Will assess for any signs of iron deficiency . Most recent hemoglobin at 8.0. Concern for blood loss from colon mass. Patient reports dark stools. Adopted 352356477 Z62.89 8 Patient is adopted and discussed hereditary gene panel. Patient does have family history of her son having bladder cancer. Will send [facility] hereditary panel. Antineopla stic chemotherapy regimen 051082851 Z51.11 Week 1 5FU Leucovorin Vectibix on [...] without Vectibix on April 18, 2024. Hypokalemia 30724621 E87 .6 Patient returns on April 29, 2023. Potassium is low at 2.9. Will send prescripti on for potassium 20 mEq daily. Will follow-up labs again next week. Deep venou s thrombosis 429018427 I82.409 Patient developed right lower extremity pain and edema.Veno us duplex on May 28, 2023 with evidence of deep vein thrombosis . Started on Eliquis 5 mg 1 tab p.o. b.i.d.. Did not start with Eliquis starter pack due to recent bleeding. Patient had a DVT and a PE in 1990 after her hysterecto my. Mixed anxi ety and depressive disorder 181772266 F41.8 Patient returns on November 23, 2023. [...] prescripti on for Cymbalta. Atopic conjunctivitis 23 4902135 H10.12 Patient with conjunctiv itis of the left eye. Held Vectibix on December 07, 2023. Continue with current therapy. Will follow up again in 2 weeks. Iron defic iency anemia 15095439 D50.9 Will follow up labs Insomnia 014503073 G47.0 0 Patient returns on February 08, 2024. She has had difficulty sleeping for most of her life. She has tried multiple medication s without relief. She is tried Mirtazapin e and lorazepam without improvemen t of insomnia. Discussed trying trazodone instead. Will send prescripti on. Will send prescripti on for Requip for restless legs. Restless legs 72099569 G 25.81 Patient returns on February 08, [...] also send prescripti on for fluconazol e. [id number] Hanna Snider PA-C [facility] [address] [place] [address] 05/02/2024 09:52:10 05/02/2024 10:44:11 Malignant tumor of ascending colon 253290587 C18.2 CT scan of the abdomen and [...] 8.2 hematocrit 29.0. MCV 67.9. Platelet count 637156. Normal cell differenti al. Low serum folate [...] current therapy. Metastatic malignant neoplasm to liver 67060847 C78.7 CT scan of the abdomen and [...] Findings concerning for metastatic colon cancer. Nausea 278585891 R11.0 As needed Zofran and Phenergan prescribed . Pain due t o neoplastic disease 5721844234 9102 G89.3 Right upper quadrant pain secondary to liver metastasis . Patient currently taking Tylenol. Discussed as needed oxycodone to limit Tylenol exposure. Anemia 768141871 D64.9 Right-side d colon mass concerning for malignancy . Will assess for any signs of iron deficiency . Most recent hemoglobin at 8.0. Concern for blood loss from colon mass. Patient reports dark stools. Adopted 604418116 Z62.89 8 Patient is adopted and discussed hereditary gene panel. Patient does have family history of her son having bladder cancer. Will send [facility] hereditary panel. Antineopla stic chemotherapy regimen 931496887 Z51.11 Week 1 5FU Leucovorin Vectibix on [...] without Vectibix on May 02, 2024. Hypokalemia 92500896 E87 .6 Patient returns on April 29, 2023. Potassium is low at 2.9. Will send prescripti on for potassium 20 mEq daily. Will follow-up labs again next week. Deep venou s thrombosis 139978466 I82.409 Patient developed right lower extremity pain and edema.Veno us duplex on May 28, 2023 with evidence of deep vein thrombosis . Started on Eliquis 5 mg 1 tab p.o. b.i.d.. Did not start with Eliquis starter pack due to recent bleeding. Patient had a DVT and a PE in 1990 after her hysterecto my. Mixed anxi ety and depressive disorder 183956618 F41.8 Patient returns on November 23, 2023. [...] prescripti on for Cymbalta. Atopic conjunctivitis 23 3688773 H10.12 Patient with conjunctiv itis of the left eye. Held Vectibix on December 07, 2023. Continue with current therapy. Will follow up again in 2 weeks. Iron defic iency anemia 18273983 D50.9 Will follow up labs Insomnia 507994478 G47.0 0 Patient returns on February 08, 2024. She has had difficulty sleeping for most of her life. She has tried multiple medication s without relief. She is tried Mirtazapin e and lorazepam without improvemen t of insomnia. Discussed trying trazodone instead. Will send prescripti on. Will send prescripti on for Requip for restless legs. Restless legs 01444524 G 25.81 Patient returns on February 08, [...] and took Diflucan tablet. Rash has resolved. [id number] Tomy King MD [facility] [address] [place] [address] 05/16/2024 10:11:10 05/16/2024 10:33:39 Malignant tumor of ascending colon 476545940 C18.2 CT scan of the abdomen and [...] 8.2 hematocrit 29.0. MCV 67.9. Platelet count 713243. Normal cell differenti al. Low serum folate [...] 16, 2024. Metastatic malignant neoplasm to liver 36729217 C78.7 CT scan of the abdomen and [...] Findings concerning for metastatic colon cancer. Nausea 928097761 R11.0 As needed Zofran and Phenergan prescribed . Pain due t o neoplastic disease 5005483204 9102 G89.3 Right upper quadrant pain secondary to liver metastasis . Patient currently taking Tylenol. Discussed as needed oxycodone to limit Tylenol exposure. Anemia 991983612 D64.9 Right-side d colon mass concerning for malignancy . Will assess for any signs of iron deficiency . Most recent hemoglobin at 8.0. Concern for blood loss from colon mass. Patient reports dark stools. Adopted 245193651 Z62.89 8 Patient is adopted and discussed hereditary gene panel. Patient does have family history of her son having bladder cancer. Will send [facility] hereditary panel. Antineopla stic chemotherapy regimen 034246418 Z51.11 Week 1 5FU Leucovorin Vectibix on [...] on May 16, 2024. Vectibix resumed. Hypokalemia 52615942 E87 .6 Patient returns on April 29, 2023. Potassium is low at 2.9. Will send prescripti on for potassium 20 mEq daily. Will follow-up labs again next week. Deep venou s thrombosis 490273890 I82.409 Patient developed right lower extremity pain [...] duplex. Mixed anxi ety and depressive disorder 484762663 F41.8 Patient returns on November 23, 2023. [...] prescripti on for Cymbalta. Atopic conjunctivitis 23 6574476 H10.12 Patient with conjunctiv itis of the left eye. Held Vectibix on December 07, 2023. Continue with current therapy. Will follow up again in 2 weeks. Iron defic iency anemia 18945123 D50.9 Will follow up labs Insomnia 872315247 G47.0 0 Patient returns on February 08, 2024. She has had difficulty sleeping for most of her life. She has tried multiple medication s without relief. She is tried Mirtazapin e and lorazepam without improvemen t of insomnia. Discussed trying trazodone instead. Will send prescripti on. Will send prescripti on for Requip for restless legs. Restless legs 18144553 G 25.81 Patient returns on February 08, 2024. She has had difficulty sleeping for most of her life. She has tried multiple medication s without relief. She is tried Mirtazapin e and lorazepam without improvemen t of insomnia. Discussed trying trazodone instead. Prescripti on sent for Requip for restless legs. [id number] Hanna Snider PA-C [facility] [address] [facility] [address] [place] [address] 05/30/2024 09:21:34 05/30/2024 11:05:52 Malignant tumor of ascending colon 540456202 C18.2 CT scan of the abdomen and [...] 8.2 hematocrit 29.0. MCV 67.9. Platelet count 671527. Normal cell differenti al. Low serum folate [...] up labs. Metastatic malignant neoplasm to liver 14155814 C78.7 CT scan of the abdomen and [...] Findings concerning for metastatic colon cancer. Nausea 692047417 R11.0 As needed Zofran and Phenergan prescribed . Patient returns on May 30, 2024. Patient has had intermitte nt nausea that occurs randomly. Will try scopolamin e patches. Pain due t o neoplastic disease 2068499387 9102 G89.3 Right upper quadrant pain secondary to liver metastasis . Patient currently taking Tylenol. Discussed as needed oxycodone to limit Tylenol exposure. Anemia 531112179 D64.9 Right-side d colon mass concerning for malignancy . Will assess for any signs of iron deficiency . Most recent hemoglobin at 8.0. Concern for blood loss from colon mass. Patient reports dark stools. Adopted 009403206 Z62.89 8 Patient is adopted and discussed hereditary gene panel. Patient does have family history of her son having bladder cancer. Will send [facility] hereditary panel. Antineopla stic chemotherapy regimen 871822633 Z51.11 Week 1 5FU Leucovorin Vectibix on [...] 2024. Patient will receive Vectibix today. Hypokalemia 96518451 E87 .6 Patient returns on April 29, 2023. Potassium is low at 2.9. Will send prescripti on for potassium 20 mEq daily. Will follow-up labs again next week. Deep venou s thrombosis 622423747 I82.409 Patient developed right lower extremity pain [...] duplex. Mixed anxi ety and depressive disorder 080000175 F41.8 Patient returns on November 23, 2023. [...] prescripti on for Cymbalta. Atopic conjunctivitis 23 2804026 H10.12 Patient with conjunctiv itis of the left eye. Held Vectibix on December 07, 2023. Continue with current therapy. Will follow up again in 2 weeks. Iron defic iency anemia 51280871 D50.9 Will follow up labs Insomnia 579224581 G47.0 0 Patient returns on February 08, 2024. She has had difficulty sleeping for most of her life. She has tried multiple medication s without relief. She is tried Mirtazapin e and lorazepam without improvemen t of insomnia. Discussed trying trazodone instead. Will send prescripti on. Will send prescripti on for Requip for restless legs. Restless legs 47310628 G 25.81 Patient returns on February 08, [...] the area dry. Will follow-up. Generalized rash 0364879 06 R21 Patient returns on May 30, [...] to keep the area dry. Will follow-up. [id number] Hanna Snider PA-C [facility] [address] [place] [address] 06/27/2024 09:58:37 06/27/2024 10:53:58 Malignant tumor of ascending colon 238225423 C18.2 CT scan of the abdomen and [...] 8.2 hematocrit 29.0. MCV 67.9. Platelet count 832149. Normal cell differenti al. Low serum folate [...] is following with the Coumadin clinic at [facility]. She is scheduled for [...] up labs. Metastatic malignant neoplasm to liver 17353831 C78.7 CT scan of the abdomen and [...] Findings concerning for metastatic colon cancer. Nausea 597980141 R11.0 As needed Zofran and Phenergan prescribed . Discussed trying scopolamin e patches but her insurance wouldn't cover. Pain due t o neoplastic disease 3213864664 9102 G89.3 Right upper quadrant pain secondary to liver metastasis . Patient currently taking Tylenol. Discussed as needed oxycodone to limit Tylenol exposure. Anemia 041252957 D64.9 Right-side d colon mass concerning for malignancy . Will assess for any signs of iron deficiency . Most recent hemoglobin at 8.0. Concern for blood loss from colon mass. Patient reports dark stools. Adopted 121157609 Z62.89 8 Patient is adopted and discussed hereditary gene panel. Patient does have family history of her son having bladder cancer. Will send [facility] hereditary panel. Antineopla stic chemotherapy regimen 481274053 Z51.11 Week 1 5FU Leucovorin Vectibix on [...] Patient will receive not Vectibix today. Hypokalemia 66336751 E87 .6 Patient returns on April 29, 2023. Potassium is low at 2.9. Will send prescripti on for potassium 20 mEq daily. Will follow-up labs again next week. Deep venou s thrombosis 090791314 I82.409 Patient developed right lower extremity pain [...] duplex. Mixed anxi ety and depressive disorder 267599277 F41.8 Patient returns on November 23, 2023. [...] prescripti on for Cymbalta. Atopic conjunctivitis 23 5105810 H10.12 Patient with conjunctiv itis of the left eye. Held Vectibix on December 07, 2023. Continue with current therapy. Will follow up again in 2 weeks. Iron defic iency anemia 94744297 D50.9 Will follow up labs Insomnia 067169191 G47.0 0 Patient returns on February 08, 2024. She has had difficulty sleeping for most of her life. She has tried multiple medication s without relief. She is tried Mirtazapin e and lorazepam without improvemen t of insomnia. Discussed trying trazodone instead. Will send prescripti on. Will send prescripti on for Requip for restless legs. Restless legs 53031312 G 25.81 Patient returns on February 08, [...] patient has not received Vectibix. Generalized rash 5119051 06 R21 Patient returns on May 30, [...] is following with the Coumadin clinic at [facility]. Congestive heart failure 27137872 I50.9 Patient returns on June 27, 2024. Since previous visit patient has been diagnosed with congestive heart failure and atrial fibrillati on. She has started lasix and is following with a cardiologi st. [id number] Hanna Snider PA-C [facility] [address] [place] [address] 07/11/2024 09:55:48 07/11/2024 10:53:23 Malignant tumor of ascending colon 437304898 C18.2 CT scan of the abdomen and [...] 8.2 hematocrit 29.0. MCV 67.9. Platelet count 503304. Normal cell differenti al. Low serum folate [...] up labs. Metastatic malignant neoplasm to liver 86953576 C78.7 CT scan of the abdomen and [...] Findings concerning for metastatic colon cancer. Nausea 207097382 R11.0 As needed Zofran and Phenergan prescribed . Discussed trying scopolamin e patches but her insurance wouldn't cover. She is taking Zofran with relief. Pain due t o neoplastic disease 1942361491 9102 G89.3 She is taking hydrocodon e 7.5 mg b.i.d. Discussed taking medication every 4-6 hours as needed. Anemia 845305126 D64.9 Right-side d colon mass concerning for malignancy . Will assess for any signs of iron deficiency . Most recent hemoglobin at 8.0. Concern for blood loss from colon mass. Patient reports dark stools. Adopted 485904677 Z62.89 8 Patient is adopted and discussed hereditary gene panel. Patient does have family history of her son having bladder cancer. Will send [facility] hereditary panel. Antineopla stic chemotherapy regimen 725785976 Z51.11 Week 1 5FU Leucovorin Vectibix on [...] 2024. Patient will receive Vectibix today. Hypokalemia 88292140 E87 .6 Patient returns on April 29, 2023. Potassium is low at 2.9. Will send prescripti on for potassium 20 mEq daily. Will follow-up labs again next week. Deep venou s thrombosis 161266314 I82.409 Patient developed right lower extremity pain [...] duplex. Mixed anxi ety and depressive disorder 215651139 F41.8 Patient returns on November 23, 2023. [...] prescripti on for Cymbalta. Atopic conjunctivitis 23 8638571 H10.12 Patient with conjunctiv itis of the left eye. Held Vectibix on December 07, 2023. Continue with current therapy. Will follow up again in 2 weeks. Iron defic iency anemia 09097870 D50.9 Will follow up labs Insomnia 540955284 G47.0 0 Patient returns on February 08, 2024. She has had difficulty sleeping for most of her life. She has tried multiple medication s without relief. She is tried Mirtazapin e and lorazepam without improvemen t of insomnia. Discussed trying trazodone instead. Will send prescripti on. Will send prescripti on for Requip for restless legs. Restless legs 21154320 G 25.81 Patient returns on February 08, [...] patient has not received Vectibix. Generalized rash 3784536 06 R21 Patient returns on May 30, [...] is following with the Coumadin clinic at [facility]. Congestive heart failure 56661521 I50.9 Patient returns on June 27, 2024. Since previous visit patient has been diagnosed with congestive heart failure and atrial fibrillati on. She has started lasix and is following with a cardiologi st. [id number] Jana España MD [facility] [address] [place] [address] 07/06/2024 10:53:43 07/08/2024 03:53:47 Seen by palliative care service 621384039 Z51.5 Introduced services today. Dtr and son would be NOK - she feels important to start thinking about completion of LW/AD- I provided copies today and [facility] and will plan to f/u on this is two weeks. Encouraged her to think about HCS/code status. Still wants to continue chemo and has scans next week - did not discuss hospice, but eligible at any point Pain due t o neoplastic disease 9788300936 9102 G89.3 Uncontroll ed, had lortab prescribed which manages pain well when she takes medication . Encouraged adherence. Mixed anxi ety and depressive disorder 794055986 F41.8 Uncontroll ed. Not taking cymbalta. Encouraged adherence and PRN ativan for breakthrou gh syptoms. Did not wish to pursue CBt at this time, will d/w Elsa for additional support options moving forward Nausea and vomiting 1693 1999 R11.2 Related to malignancy vs. Chemo. Improved with PRN and qAM zofran, likely related to chemo vs. malignancy Loss of appetite 2282019 6 R63.0 Related to malignancy . Not taking mirtazapin e. Does not want to add additional Rx at this itme or see [facility] st. [id number] Hanna Snider PA-C [facility] [address] [place] [address] 07/25/2024 10:19:02 07/25/2024 10:39:35 Malignant tumor of ascending colon 612990007 C18.2 CT scan of the abdomen and [...] 8.2 hematocrit 29.0. MCV 67.9. Platelet count 292414. Normal cell differenti al. Low serum folate [...] Vectibix today. Metastatic malignant neoplasm to liver 18315286 C78.7 CT scan of the abdomen and [...] Findings concerning for metastatic colon cancer. Nausea 008560049 R11.0 As needed Zofran and Phenergan prescribed . Discussed trying scopolamin e patches but her insurance wouldn't cover. She is taking Zofran with relief. Pain due t o neoplastic disease 1370633708 9102 G89.3 She is taking hydrocodon e 7.5 mg b.i.d. Discussed taking medication every 4-6 hours as needed. Anemia 418256986 D64.9 Right-side d colon mass concerning for malignancy . Will assess for any signs of iron deficiency . Hemoglobin previously 8.0. Concern for blood loss from colon mass. Patient reports dark stools. labs on July 25, 2024 with improvemen t of hemoglobin 12.6. Patient is currently receiving infusional iron. Adopted 591862197 Z62.89 8 Patient is adopted and discussed hereditary gene panel. Patient does have family history of her son having bladder cancer. Will send [facility] hereditary panel. Antineopla stic chemotherapy regimen 715243865 Z51.11 Week 1 5FU Leucovorin Vectibix on [...] Patient will not receive Vectibix today. Hypokalemia 28470485 E87 .6 Patient returns on April 29, 2023. Potassium is low at 2.9. Will send prescripti on for potassium 20 mEq daily. Will follow-up labs again next week. Deep venou s thrombosis 177940392 I82.409 Patient developed right lower extremity pain [...] duplex. 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 [...] reports depression has improved. Atopic conjunctivitis 23 7097419 H10.12 Patient with conjunctiv itis of the left eye. Held Vectibix on December 07, 2023. Continue with current therapy. Will follow up again in 2 weeks. Patient returns on July 25, 2024. She does have conjunctiv itis of the left eye. Will hold Vectibix today. Will follow up. Iron defic iency anemia 00223284 D50.9 Currently receiving infusional iron. Will continue to monitor. Insomnia 857978845 G47.0 0 Patient returns on February 08, 2024. She has had difficulty sleeping for most of her life. She has tried multiple medication s without relief. She is tried Mirtazapin e and lorazepam without improvemen t of insomnia. Discussed trying trazodone instead. Will send prescripti on. Will send prescripti on for Requip for restless legs. Restless legs 44039316 G 25.81 Patient returns on February 08, [...] with diflucan and nystain powder. Generalized rash 4665422 06 R21 Patient returns on May 30, [...] is following with the Coumadin clinic at [facility]. Congestive heart failure 10091053 I50.9 Patient returns on June 27, 2024. Since previous visit patient has been diagnosed with congestive heart failure and atrial fibrillati on. She has started lasix and is following with a cardiologi st. Cachexia 741185789 R64 Patient returns on July 25, 2024. Patient has had decreased appetite. Continues to lose weight. She has lost 4 more lbs since previous visit. She is drinking nutritiona l supplement s. Discussed appetite stimulant. Patient previously refused. Now she is agreeable to try Megace. Will send prescripti on. Will follow up for angela oakley [id number] Tomy King MD [facility] [address] [place] [address] 08/01/2024 11:10:37 08/01/2024 12:30:43 Malignant tumor of ascending colon 026485890 C18.2 CT scan of the abdomen and [...] 8.2 hematocrit 29.0. MCV 67.9. Platelet count 416439. Normal cell differenti al. Low serum folate [...] study published in September 2022 in the [place] [employer] [facility] of combined Avastin therapy with [...] Will follow-up Metastatic malignant neoplasm to liver 24352580 C78.7 CT scan of the abdomen and [...] Findings concerning for metastatic colon cancer. Nausea 394274198 R11.0 As needed Zofran and Phenergan prescribed . Discussed trying scopolamin e patches but her insurance wouldn't cover. She is taking Zofran with relief. Pain due t o neoplastic disease 6040975031 9102 G89.3 She is taking hydrocodon e 7.5 mg b.i.d. Discussed taking medication every 4-6 hours as needed. Anemia 651251707 D64.9 Right-side d colon mass concerning for malignancy . Will assess for any signs of iron deficiency . Hemoglobin previously 8.0. Concern for blood loss from colon mass. Patient reports dark stools. labs on July 25, 2024 with improvemen t of hemoglobin 12.6. Patient is currently receiving infusional iron. Adopted 851954609 Z62.89 8 Patient is adopted and discussed hereditary gene panel. Patient does have family history of her son having bladder cancer. Will send [facility] hereditary panel. Antineopla stic chemotherapy regimen 760455804 Z51.11 Week 1 5FU Leucovorin Vectibix on [...] 2024 due to disease progressio n. Hypokalemia 00223318 E87 .6 Patient returns on April 29, 2023. Potassium is low at 2.9. Will send prescripti on for potassium 20 mEq daily. Will follow-up labs again next week. Deep venou s thrombosis 874101151 I82.409 Patient developed right lower extremity pain [...] duplex. Mixed anxi ety and depressive disorder 426145192 F41.8 Patient returns on November 23, 2023. [...] reports depression has improved. Atopic conjunctivitis 23 3148451 H10.12 Patient with conjunctiv itis of the left eye. Held Vectibix on December 07, 2023. Continue with current therapy. Will follow up again in 2 weeks. Patient returns on July 25, 2024. She does have conjunctiv itis of the left eye. Will hold Vectibix today. Will follow up. Iron defic iency anemia 96013477 D50.9 Currently receiving infusional iron. Will continue to monitor. Insomnia [id number] G47.0 0 Patient returns on February 08, 2024. She has had difficulty sleeping for most of her life. She has tried multiple medication s without relief. She is tried Mirtazapin e and lorazepam without improvemen t of insomnia. Discussed trying trazodone instead. Will send prescripti on. Will send prescripti on for Requip for restless legs. Restless legs 66498846 G 25.81 Patient returns on February 08, [...] with diflucan and nystain powder. Generalized rash 4902312 06 R21 Patient returns on May 30, [...] is following with the Coumadin clinic at [facility]. Congestive heart failure 91209589 I50.9 Patient returns on June 27, 2024. Since previous visit patient has been diagnosed with congestive heart failure and atrial fibrillati on. She has started lasix and is following with a cardiologi . Cachexia 908447581 R64 Patient returns on July 25, 2024. Patient has had decreased appetite. Continues to lose weight. She has lost 4 more lbs since previous visit. She is drinking nutritiona l supplement s. Discussed appetite stimulant. Patient previously refused. Now she is agreeable to try Megace. Will send prescripti on. Will follow up for angela oakley [id number] Hanna Snider PA-C [facility] [address] [place] [address] 08/10/2024 09:37:37 08/10/2024 10:29:37 Malignant tumor of ascending colon 781223401 C18.2 CT scan of the abdomen and [...] 8.2 hematocrit 29.0. MCV 67.9. Platelet count 580801. Normal cell differenti al. Low serum folate [...] study published in September 2022 in the [place] [facility] of combined Avastin therapy with [...] liver lesions. Metastatic malignant neoplasm to liver 01354294 C78.7 CT scan of the abdomen and [...] patient is a candidate for radiation Nausea 271854277 R11.0 As needed Zofran and Phenergan prescribed . Discussed trying scopolamin e patches but her insurance wouldn't cover. She is taking Zofran with relief. Pain due t o neoplastic disease [id number] 9102 G89.3 She is taking hydrocodon e 7.5 mg b.i.d. Discussed taking medication every 4-6 hours as needed. Anemia 517903570 D64.9 Right-side d colon mass concerning for malignancy . Will assess for any signs of iron deficiency . Hemoglobin previously 8.0. Concern for blood loss from colon mass. Patient reports dark stools. Labs on August 10, 2024 with hemoglobin slightly low at 11.9. She is receiving infusional iron as needed. Adopted [id number] Z62.89 8 Patient is adopted and discussed hereditary gene panel. Patient does have family history of her son having bladder cancer. [facility] hereditary panel sent Antineopla stic chemotherapy regimen 299566002 Z51.11 Week 1 5FU Leucovorin Vectibix on [...] monitor for tolerabili ty and toxicity. Hypokalemia 49625838 E87 .6 Currently taking for potassium 20 mEq daily. Will follow up labs. Mixed anxi ety and depressive disorder 123827983 F41.8 Patient returns on November 23, 2023. [...] reports depression has improved. Atopic conjunctivitis 23 6678603 H10.12 Conjunctiv itis due to Vectibix. This is improving. Iron defic iency anemia 66131858 D50.9 Currently receiving infusional iron as needed. Will continue to monitor. Insomnia 002188551 G47.0 0 Patient has had difficulty sleeping for most of her life. She has tried multiple medication s without relief. She is tried Mirtazapin e and lorazepam without improvemen t of insomnia. Discussed trying trazodone instead. Restless legs 34826307 G 25.81 Patient taking Requip for restless legs. Generalized rash 2885090 06 R21 Patient with rash due to Vectibix. This is improving. Atrial fibrillation 4943 6004 I48.91 Patient has been diagnosed with congestive heart failure and atrial fibrillati on. She has been started on Coumadin. She is following with the Coumadin clinic at [facility]. Congestive heart failure 90127699 I50.9 Patient has been diagnosed with congestive heart failure. She has started lasix and is following with a cardiologi st. Cachexia 466640387 R64 Patient has had decreased appetite and weight loss. She is drinking nutritiona l supplement s. Discussed appetite stimulant. Patient previously refused. She has started on Megace. Will continue to monitor History of deep vein thrombosis 581517978 Z86.718 Patient developed right lower extremity pain [...] repeat venous duplex. Drug therapy finding 309 763523 Z79.01 She continues on Coumadin due to a fib. She is following with the Coumadin clinic at [facility]. [id number] Hanna Snider PA-C [facility] [address] [place] [address] 08/25/2024 09:02:23 08/25/2024 09:51:52 Antineoplastic chemotherapy regimen 032281140 Z51.11 Week 1 5FU Leucovorin Vectibix on [...] and toxicity. Malignant tumor of ascending colon 660531796 C18.2 CT scan of the abdomen and [...] 8.2 hematocrit 29.0. MCV 67.9. Platelet count 245353. Normal cell differenti al. Low serum folate [...] study published in September 2022 in the [place] [facility] of combined Avastin therapy with [...] liver lesions. Metastatic malignant neoplasm to liver 96674910 C78.7 CT scan of the abdomen and [...] patient is a candidate for radiation Nausea 679336206 R11.0 As needed Zofran and Phenergan prescribed . Discussed trying scopolamin e patches but her insurance wouldn't cover. She is taking Zofran with relief. Pain due t o neoplastic disease [id number] 9102 G89.3 She is taking hydrocodon e [...] does take her current medication s Anemia 797813455 D64.9 Right-side d colon mass concerning for malignancy . Will assess for any signs of iron deficiency . Hemoglobin previously 8.0. Concern for blood loss from colon mass. Patient reports dark stools. Labs on August 10, 2024 with hemoglobin slightly low at 11.9. She is receiving infusional iron as needed. Adopted 066563014 Z62.89 8 Patient is adopted and discussed hereditary gene panel. Patient does have family history of her son having bladder cancer. [facility] hereditary panel sent Hypokalemia 31677714 E87 .6 Currently taking for potassium 20 mEq daily. Will follow up labs. Mixed anxi ety and depressive disorder 669470586 F41.8 Patient returns on November 23, 2023. [...] reports depression has improved. Atopic conjunctivitis 23 9113792 H10.12 Conjunctiv itis due to Vectibix. This is improving. Iron defic iency anemia 90069863 D50.9 Receiving infusional iron as needed. Will continue to monitor. Insomnia 994723554 G47.0 0 Patient has had difficulty sleeping for most of her life. She has tried multiple medication s without relief. She is tried Mirtazapin e and lorazepam without improvemen t of insomnia. Discussed trying trazodone instead. Restless legs 46752936 G 25.81 Patient taking Requip for restless legs. Generalized rash 5027884 06 R21 Rash due to Vectibix. This has improved. Atrial fibrillation 4943 6004 I48.91 Patient has been diagnosed with congestive heart failure and atrial fibrillati on. She has been started on Coumadin. She is following with the Coumadin clinic at [facility]. Congestive heart failure 80618221 I50.9 Patient has been diagnosed with congestive heart failure. She has started lasix and is following with a cardiologi st. Cachexia 173303158 R64 Patient has had decreased appetite and weight loss. She is drinking nutritiona l supplement s. Discussed appetite stimulant. Patient previously refused. She has started on Megace. She does not like the taste of Megace. Discussed Megace tablets instead of liquid but patient declines at this time. Will continue to monitor History of deep vein thrombosis 301088089 Z86.718 Patient developed right lower extremity pain [...] repeat venous duplex. Drug therapy finding 309 544223 Z79.01 She continues on Coumadin due to a fib. She is following with the Coumadin clinic at [facility]. Acute post traumatic headache 8388037794 83760 G44.319 Patient returns on August 25, 2024. [...] Internatio nal normalized ratio above reference range 909364700 R79.1 Patient returns on August 25, 2024. She is on Coumadin for atrial fibrillati on and her INR is elevated. She is going to the Coumadin Clinic for management . INR 8 today. She is going to hold Coumadin and contact Coumadin Clinic for directions today. Denies any bleeding at this time. [id number] Hanna Snider PA-C [facility] [address] [place] [address] 09/02/2024 11:29:36 09/02/2024 12:07:33 Antineoplastic chemotherapy regimen 740039438 Z51.11 Week 1 5FU Leucovorin Vectibix on [...] Will monitor for tolerabili ty and toxicity.P terri returns on September 02, 2024. Patient with increased diarrhea, nausea, and vomiting for the past 4 days. Discussed dose reducing Irinotecan with her next chemothera py cycle. Will follow up. Malignant tumor of ascending colon 460389397 C18.2 CT scan of the abdomen and [...] 8.2 hematocrit 29.0. MCV 67.9. Platelet count 141299. Normal cell differenti al. Low serum folate [...] study published in September 2022 in the [place] [facility] of combined Avastin therapy with [...] liver lesions. Metastatic malignant neoplasm to liver 16483880 C78.7 CT scan of the abdomen and [...] patient is a candidate for radiation Nausea 621269357 R11.0 As needed Zofran and Phenergan prescribed [...] ons. Pain due t o neoplastic disease 8068276725 9102 G89.3 She is taking hydrocodon e [...] tab po every 3-4 hours instead. Anemia 267831894 D64.9 Right-side d colon mass concerning for malignancy . Will assess for any signs of iron deficiency . Hemoglobin previously 8.0. Concern for blood loss from colon mass. Patient reports dark stools. Labs on August 10, 2024 with hemoglobin slightly low at 11.9. She is receiving infusional iron as needed. Adopted 854937386 Z62.89 8 Patient is adopted and discussed hereditary gene panel. Patient does have family history of her son having bladder cancer. [facility] hereditary panel sent Hypokalemia 80948589 E87 .6 Currently taking for potassium 20 mEq daily. Will follow up labs. Mixed anxi ety and depressive disorder 411048703 F41.8 Patient returns on November 23, 2023. [...] reports depression has improved. Atopic conjunctivitis 23 2217326 H10.12 Conjunctiv itis due to Vectibix. This is improving. Iron defic iency anemia 39394620 D50.9 Receiving infusional iron as needed. Will continue to monitor. Insomnia 495547475 G47.0 0 Patient has had difficulty sleeping for most of her life. She has tried multiple medication s without relief. She is tried Mirtazapin e and lorazepam without improvemen t of insomnia. Discussed trying trazodone instead. Restless legs 41449941 G 25.81 Patient taking Requip for restless legs. Generalized rash 8271195 06 R21 Rash due to Vectibix. This has improved. Atrial fibrillation 4943 6004 I48.91 Patient has been diagnosed with congestive heart failure and atrial fibrillati on. She has been started on Coumadin. She is following with the Coumadin clinic at [facility]. Congestive heart failure 54998508 I50.9 Patient has been diagnosed with congestive heart failure. She has started lasix and is following with a cardiologi st. Cachexia 555041537 R64 Patient has had decreased appetite and weight loss. She is drinking nutritiona l supplement s. Discussed appetite stimulant. Patient previously refused. She has started on Megace. She does not like the taste of Megace. Discussed Megace tablets instead of liquid but patient declines at this time. Will continue to monitor History of deep vein thrombosis 133901456 Z86.718 Patient developed right lower extremity pain [...] repeat venous duplex. Drug therapy finding 309 511036 Z79.01 She continues on Coumadin due to a fib. She is following with the Coumadin clinic at [facility]. Internatio nal normalized ratio above reference range 265131094 R79.1 Patient returns on August 25, 2024. She is on Coumadin for atrial fibrillati on and her INR is elevated. She is going to the Coumadin Clinic for management . INR 8 today. She is going to hold Coumadin and contact Coumadin Clinic for directions today. Denies any bleeding at this time. Diarrhea 90994086 R19.7 Patient with increased diarrhea, nausea, and vomiting for the past 4 days. She is taking Imodium and Lomotil without relief. She has a history of C diff. Will order stool studies today. Will check stool for C diff today. Dehydration 37035097 E86 .0 Patient returns on September 02, [...] Recorded Advance Directives Directive None Recorded Payers Insurance Date Sequence Insurance Name Policy Number Policy Bell Covered Member ID Bell Member ID Guarantor Name 06/02/2023 [place] Vicky Roblero [id number] Vickytessie Roblero 06/02/2023 1 [employer] (MEDICARE SUPPLEMENT) Vickytessie Roblero [id number] Vickytessie Roblero 10/01/2024 2 [employer] Vicky Roblero [id number] Vickytessie Roblero 06/02/2023 1 MEDICARE B-[place]: [place] Vickytessie Roblero [id number] Vickytessie Roblero 06/02/2023 2 [employer] (MEDICARE SUPPLEMENT) Vicky Roblero [id number] Vicky Marie Chambers 09/02/2024 1 [place] Vicky Sanchez Chambers [id number] Vickytessie Roblero Notes Date Note Type Note Provider Name and Address Organization Details Recorded Time 07/25/2024 text/html 78 yo F returns for evaluation of metastatic colon cancer. Patient recently seen on February 17, 2023 in the emergency room at [facility] with abdominal pain. Patient reported epigastric [...] 8.2 hematocrit 29.0. MCV 67.9. Platelet count 138685. Normal cell differential. Low serum folate of [...] with metastatic colorectal cancer. Discussed chemotherapy with [place] based regimen with 5FU Leucovorin if [...] is following with the Coumadin clinic at [facility]. She is scheduled for [...] Will follow up labs. Hanna Snider PA-C [address], [place], [address], [place] - [facility] - [place] 07/25/2024 11:22:44 08/01/2024 text/html 78 yo F returns for evaluation of metastatic colon cancer. Patient recently seen on February 17, 2023 in the emergency room at [facility] with abdominal pain. Patient reported epigastric [...] 8.2 hematocrit 29.0. MCV 67.9. Platelet count 811664. Normal cell differential. Low serum folate of [...] with metastatic colorectal cancer. Discussed chemotherapy with [place] based regimen with 5FU Leucovorin if [...] is following with the Coumadin clinic at [facility]. She is scheduled for [...] study published in September 2022 in the [place] [facility] of combined Avastin therapy with [place]. Phase 3 trial with median overall survival of 10.8 months in combination therapy verses 7.5 months [place] alone. Progression-free survival 5.6 months versus 2.4 months in [place] alone therapy. Tomy King MD [address], [place], [address], [place] [facility] [place] 08/01/2024 13:08:52 08/10/2024 text/html 78 yo F returns for evaluation of metastatic colon cancer. Patient recently seen on February 17, 2023 in the emergency room at [facility] with abdominal pain. Patient reported epigastric [...] 8.2 hematocrit 29.0. MCV 67.9. Platelet count 204987. Normal cell differential. Low serum folate of [...] with metastatic colorectal cancer. Discussed chemotherapy with [place] based regimen with 5FU Leucovorin if [...] is following with the Coumadin clinic at [facility]. She is scheduled for [...] study published in September 2022 in the [place] [facility] of combined Avastin therapy with [...] tolerability and toxicity. Hanna Snider PA-C [address], [place], [address], [place] [facility] [place] 08/10/2024 11:13:32 08/25/2024 text/html 78 yo F returns for evaluation of metastatic colon cancer. Patient recently seen on February 17, 2023 in the emergency room at [facility] with abdominal pain. Patient reported epigastric [...] 8.2 hematocrit 29.0. MCV 67.9. Platelet count 435976. Normal cell differential. Low serum folate of [...] with metastatic colorectal cancer. Discussed chemotherapy with [place] based regimen with 5FU Leucovorin if [...] is following with the Coumadin clinic at [facility]. She is scheduled for [...] study published in September 2022 in the [place] [facility] of combined Avastin therapy with [...] and toxicity. Hanna Snider PA-C [address] , [place], [address], [place] [facility] [place] 08/25/2024 10:43:13 09/02/2024 text/html 78 yo F returns for evaluation of metastatic colon cancer. Patient recently seen on February 17, 2023 in the emergency room at [facility] with abdominal pain. Patient reported epigastric [...] 8.2 hematocrit 29.0. MCV 67.9. Platelet count 087747. Normal cell differential. Low serum folate of [...] with metastatic colorectal cancer. Discussed chemotherapy with [place] based regimen with 5FU Leucovorin if [...] is following with the Coumadin clinic at [facility]. She is scheduled for [...] study published in September 2022 in the [place] [facility] of combined Avastin therapy with [...] cycle. Will follow up. Hanna Snider PA-C [address], [place], [address], [facility] - [facility] - [place] 09/02/2024 12:55:35 OBGyn Episode No OBEpisode recorded.
== END 2024-10-05 11:54 ==
LOC: ACC 10:45
PROVIDERS: PCP Nurse Practitioner Family; Visit Provider Physician Assistant
DX: Z79.01 Long term (current) use of anticoagulants (principal); Z86.718 Personal history of other venous thrombosis and embolism
CPT/HCPCS: 85610; 99211; G0463

== ENCOUNTER 2024-10-21 10:34 | Outpatient (CLI) | payer MEDICARE, SELFPAY ==
--- OUTSIDE RECORDS SUMMARY | 2024-10-21 10:37 | XMS_ITS | Continuity of Care Document ---
Author Organization [facility] Address [address] [place] [address] Care Team Providers Care Museum Or Zoo Director Name Role Phone ADDY GONZALES General Surgeon CARLOS A COATS Primary Care Provider VERONIKA RIVER [employer] Equipment Operator Assessment No assessment recorded. Plan of Treatment Reminders Order Date Submit Date Provider Last Modified By Organization Details Last Modified Time Details Appointments None recorded. Lab CBC w/ auto diff 2024 025 [facility], [address] , [place], [address], 5 09:46:31 CMP, serum or plasma 2024 025 [facility], [address] [place], [address], 5 09:39:00 carcinoembr yonic Ag, quant, serum or plasma 2024 025 [email or web address] [facility], [address] [place], [address], 5 09:16:06 Referral None recorded. Procedures None recorded. Surgeries None recorded. Imaging CT, head + brain, w/o contrast 2024 025 [facility] (Centralized Scheduling), [address] [place], [address], 5 09:16:16 Medication Orders None recorded. Patient TargetsNo targets recorded. Patient InstructionsNo instructions recorded. Reason for Referral None Reported. Results Created Date Observation Date Name Description Value Unit Range Abnormal Flag Note LastModifiedBy Organization Detail LastModifiedTime 07/28/19 25 07/28/2024 CT ABD pel w/ (IV [facility] [address] [place] [address] Phone: Fax: Name: DESHAWN MCMAHAN Exam Date: : 948 Age 78 years Gender : F Access ion: [id number] 2023 Physic jesus: [place] [facility] ty: [facility] Facili ty HSV: Outpat ient Exam: CT ABD PEL W/ (IV ^ ORAL) CT ABDOME N PELVIS WITH IV CONTRA ST 025 2:46 PM [facility] INDICA TION: Female , [...] gs compar e Februa ry 2023, 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 Legall y authen ticate d by VAMSHI HALL 0 07-28 15:46: 13 CC'ed Logic: Orderi ng Provid er: DIGNA LUGO Attend ing Provid er: DIGNA LUGO Referr ing Provid er: DIGNA LUGO Admitt ing Provid er: DIGNA taylor[address] [place] [address] - Physical Therapy [address] [place] [address], [place], [address], 07/29/2024 11:36:27 08/02/19 25 07/28/2024 CT, chest , w/ contr ast [facility] [address] [place] [address] Phone: Fax: Name: DESHAWN MCMAHAN Exam Date: : 948 Age 78 years Gender : F Access ion: [id number] 2023 Physic jesus: [place]ER Facili ty: [facility] Facili ty HSV: Outpat ient Exam: CT [...] Thank you for referr DESHAWN Delgado to [facility] it Hospit al. Legall y authen ticate d by AVIS ALBA IN 07-28 15:46: 34 CC'ed Logic: Orderi ng Provid er: DIGNA LUGO Attend ing Provid er: DIGNA LUGO Referr ing Provid er: DIGNA LUGO Admitt ing Provid er: DIGNA LUGO [email or web address] [facility] - Physical Therapy [address], [place], [address], 08/01/2024 10:49:34 Result Notes None recorded. Problems Name Problem SNOMED Code Status Onset Date Resolution Date Notes Provider Name and Address Organization Details Recorded Time Headache 41158971 Active 2024 Christine Farfan [facility], [place] - [facility] - [place] & [place] 5 10:27:12 Metastatic malignant neoplasm to liver 85568808 Active 2022 Ghassan Lieberman PA-C [address], [place], [address] , [place] - [facility] - [place] 3 14:27:25 Mass of colon 880176611 Active 2022 Ghassan Lieberman PA-C [address], [place], [address] , [place] - [facility] - [place] [facility] [place] 3 14:27:30 Anemia 262792410 Active 2022 Ghassan Lieberman PA-C [address], [place], [address] , [place] - [facility] - [place] 3 14:27:36 Nausea and vomiting 73821535 Active 2022 Ghassan Lieberman PA-C [address], [place], [address] , [place] - [facility] & [place] 3 14:27:46 Unintentional weight loss 752581727 Active 2022 Ghassan Lieberman PA-C [address], [place], [address] , [facility] & [place] 3 16:13:07 Night sweats 09457231 Active [address], [place], [address] , [facility] & [place] 3 16:13:12 Problem Notes None recorded. Procedures Surgical History Date Name Laterality Status Provider Name and Address Organization Details Recorded Time 04/29/20 23 [address]uncture [address], [place], [address], [facility] & [place] 04/27/2023 15:05:29 04/15/20 23 Venipuncture completed Stephanie Maravilla [facility] & [place] 04/15/2023 15:24:55 hysterectomy completed Laurel Samuels [facility] & [place] 03/11/2023 15:30:22 extraction of cataract completed Laurelesvin Samuels [facility] & [place] 03/11/2023 15:30:36 excision of colon completed Loree Tadeo [facility] & [place] 04/21/2023 11:32:07 Imaging Results None recorded. Procedure Notes None recorded. Medical Equipment None Reported. Allergies Allergen ID Allergen Name Allergen Category Reaction Reaction Severity Criticality Documentation Date Start Date Code Code System Note Provider Name and Address Organization Details Recorded Time 05289 tetracycl ine medicatio n hives Not available high 02/19/2023 05426 RxNorm Brandy [email or web address] [facility] & [place] 3 14:03:33 Medications Name [...] Not Available Not Available No t Available hydromorpho ne 2 mg tablet TAKE 1 TABLET BY MOUTH [...] Available Not Available No t Available Jantoven 5 mg tablet TAKE 1 TABLET BY [...] Updated DateTime 5 162.56 cm 35.2 kg/m2 34571.4 4 g 97.5 [degF] 98 % 98 % 20 /min 83 /min 140 mm[Hg] 68 mm[Hg] Laurel Samuels [facility] & [place] 5 09:42:28 Social History Question Answer Notes LastModified by [email or web address] Details LastModified Time Tobacco Smoking Status Never Smoker Brandy yusuf, [facility] & [place] 02/19/2023 14:02:59 What Is Your Level Of Caffeine Consumption? None [email or web address] Information not available 02/19/2023 What Was The Date Of Your Most Recent Tobacco Screening? 11/23/2023 [email or web address] Information not available 11/23/2023 Has Tobacco Cessation Counseling Been Provided? No [email or web address] Information not available 07/13/2023 Sex: Unknown Functional Status Question Answer Note LastModified by [email or web address] Details LastModified Time Do you use any illicit or recreational drugs? No [email or web address] Information not available 02/19/2023 Do you or have you ever used any other forms of tobacco or nicotine? No [email or web address] Information not available 02/19/2023 What is your level of alcohol consumption? None [email or web address] Information not available 02/19/2023 Mental Status None recorded. Family History Nothing Reported. Medical History No medical history recorded. Gynecological HistoryNo gynecological history recorded. Obstetrics History GPAL:G 0 P 0 0 0 0 Immunizations Vaccine Type Date Status Note Provider Nam e and Address Organization Details Recorded Time pneumococcal polysaccharide PPV23 7 completed Stephanie Maravilla [facility], [place] - [facility] - [place] & [place] 12/21/2023 09:56:34 Past Encounters Encounter ID Performer Location Encounter Start Date Encounter Closed Date Diagnosis/Indication Diagnosis SNOMED-CT Code Diagnosis ICD10 Code Diagnosis Note [id number] Tomy King MD [facility] [address] [place] [address] 08/01/2024 11:10:37 08/01/2024 12:30:43 Malignant tumor of ascending colon 505346831 C18.2 CT scan of the abdomen and [...] 8.2 hematocrit 29.0. MCV 67.9. Platelet count 095868. Normal cell differenti al. Low serum folate [...] study published in September 2022 in the [place] [employer] Medicine of combined Avastin therapy with [...] Will follow-up Metastatic malignant neoplasm to liver 78398305 C78.7 CT scan of the abdomen and [...] Findings concerning for metastatic colon cancer. Nausea 834332056 R11.0 As needed Zofran and Phenergan prescribed . Discussed trying scopolamin e patches but her insurance wouldn't cover. She is taking Zofran with relief. Pain due t o neoplastic disease 3883089400 9102 G89.3 She is taking hydrocodon e 7.5 mg b.i.d. Discussed taking medication every 4-6 hours as needed. Anemia 059637537 D64.9 Right-side d colon mass concerning for malignancy . Will assess for any signs of iron deficiency . Hemoglobin previously 8.0. Concern for blood loss from colon mass. Patient reports dark stools. labs on July 25, 2024 with improvemen t of hemoglobin 12.6. Patient is currently receiving infusional iron. Adopted 165413015 Z62.89 8 Patient is adopted and discussed hereditary gene panel. Patient does have family history of her son having bladder cancer. Will send [facility] hereditary panel. Antineopla stic chemotherapy regimen 852217495 Z51.11 Week 1 5FU Leucovorin Vectibix on [...] 2024 due to disease progressio n. Hypokalemia 70365606 E87 .6 Patient returns on April 29, 2023. Potassium is low at 2.9. Will send prescripti on for potassium 20 mEq daily. Will follow-up labs again next week. Deep venou s thrombosis 770553458 I82.409 Patient developed right lower extremity pain [...] duplex. 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 [...] reports depression has improved. Atopic conjunctivitis 23 9951822 H10.12 Patient with conjunctiv itis of the left eye. Held Vectibix on December 07, 2023. Continue with current therapy. Will follow up again in 2 weeks. Patient returns on July 25, 2024. She does have conjunctiv itis of the left eye. Will hold Vectibix today. Will follow up. Iron defic iency anemia 80879615 D50.9 Currently receiving infusional iron. Will continue to monitor. Insomnia 483021713 G47.0 0 Patient returns on February 08, 2024. She has had difficulty sleeping for most of her life. She has tried multiple medication s without relief. She is tried Mirtazapin e and lorazepam without improvemen t of insomnia. Discussed trying trazodone instead. Will send prescripti on. Will send prescripti on for Requip for restless legs. Restless legs 04644515 G 25.81 Patient returns on February 08, [...] with diflucan and nystain powder. Generalized rash 3753897 06 R21 Patient returns on May 30, [...] is following with the Coumadin clinic at [facility]. Congestive heart failure 48561817 I50.9 Patient returns on June 27, 2024. Since previous visit patient has been diagnosed with congestive heart failure and atrial fibrillati on. She has started lasix and is following with a cardiologi Rahel Cachexia 221481161 R64 Patient returns on July 25, 2024. Patient has had decreased appetite. Continues to lose weight. She has lost 4 more lbs since previous visit. She is drinking nutritiona l supplement s. Discussed appetite stimulant. Patient previously refused. Now she is agreeable to try Megace. Will send prescripti on. Will follow up for angela oakley [id number] Parish Snider PA-C [facility] [address] [place] [address] 08/10/2024 09:37:37 08/10/2024 10:29:37 Malignant tumor of ascending colon 757815888 C18.2 CT scan of the abdomen and [...] 8.2 hematocrit 29.0. MCV 67.9. Platelet count 256527. Normal cell differenti al. Low serum folate [...] study published in September 2022 in the [place] Journal [facility] of combined Avastin therapy with [...] liver lesions. Metastatic malignant neoplasm to liver 01820338 C78.7 CT scan of the abdomen and [...] patient is a candidate for radiation Nausea 937741097 R11.0 As needed Zofran and Phenergan prescribed . Discussed trying scopolamin e patches but her insurance wouldn't cover. She is taking Zofran with relief. Pain due t o neoplastic disease 1604995286 9102 G89.3 She is taking hydrocodon e 7.5 mg b.i.d. Discussed taking medication every 4-6 hours as needed. Anemia 042820839 D64.9 Right-side d colon mass concerning for malignancy . Will assess for any signs of iron deficiency . Hemoglobin previously 8.0. Concern for blood loss from colon mass. Patient reports dark stools. Labs on August 10, 2024 with hemoglobin slightly low at 11.9. She is receiving infusional iron as needed. Adopted 924880063 Z62.89 8 Patient is adopted and discussed hereditary gene panel. Patient does have family history of her son having bladder cancer. [facility] hereditary panel sent Antineopla stic chemotherapy regimen 684463290 Z51.11 Week 1 5FU Leucovorin Vectibix on [...] monitor for tolerabili ty and toxicity. Hypokalemia 71769474 E87 .6 Currently taking for potassium 20 mEq daily. Will follow up labs. Mixed anxi ety and depressive disorder 354605582 F41.8 Patient returns on November 23, 2023. [...] Patient reports depression has improved. Atopic conjunctivitis 1154420 H10.12 Conjunctiv itis due to Vectibix. This is improving. Iron defic iency anemia 71726466 D50.9 Currently receiving infusional iron as needed. Will continue to monitor. Insomnia 270436551 G47.0 0 Patient has had difficulty sleeping for most of her life. She has tried multiple medication s without relief. She is tried Mirtazapin e and lorazepam without improvemen t of insomnia. Discussed trying trazodone instead. Restless legs 92627299 G 25.81 Patient taking Requip for restless legs. Generalized rash 7324130 06 R21 Patient with rash due to Vectibix. This is improving. Atrial fibrillation 4943 6004 I48.91 Patient has been diagnosed with congestive heart failure and atrial fibrillati on. She has been started on Coumadin. She is following with the Coumadin clinic at [facility]. Congestive heart failure 14241768 I50.9 Patient has been diagnosed with congestive heart failure. She has started lasix and is following with a cardiologi st. Cachexia 592541369 R64 Patient has had decreased appetite and weight loss. She is drinking nutritiona l supplement s. Discussed appetite stimulant. Patient previously refused. She has started on Megace. Will continue to monitor History of deep vein thrombosis 291869650 Z86.718 Patient developed right lower extremity pain [...] repeat venous duplex. Drug therapy finding 309 101399 Z79.01 She continues on Coumadin due to a fib. She is following with the Coumadin clinic at [facility]. [id number] Parish Snider PA-C [facility] [address] [place] [address] 08/25/2024 09:02:23 08/25/2024 09:51:52 Antineoplastic chemotherapy regimen 420825737 Z51.11 Week 1 5FU Leucovorin Vectibix on [...] and toxicity. Malignant tumor of ascending colon 086665717 C18.2 CT scan of the abdomen and [...] 8.2 hematocrit 29.0. MCV 67.9. Platelet count 416285. Normal cell differenti al. Low serum folate [...] study published in September 2022 in the [place] Journal Medicine of combined Avastin therapy with [...] liver lesions. Metastatic malignant neoplasm to liver 03061412 C78.7 CT scan of the abdomen and [...] patient is a candidate for radiation Nausea 508137849 R11.0 As needed Zofran and Phenergan prescribed . Discussed trying scopolamin e patches but her insurance wouldn't cover. She is taking Zofran with relief. Pain due t o neoplastic disease 5352621074 9102 G89.3 She is taking hydrocodon e [...] does take her current medication s Anemia 357439877 D64.9 Right-side d colon mass concerning for malignancy . Will assess for any signs of iron deficiency . Hemoglobin previously 8.0. Concern for blood loss from colon mass. Patient reports dark stools. Labs on August 10, 2024 with hemoglobin slightly low at 11.9. She is receiving infusional iron as needed. Adopted 713564191 Z62.89 8 Patient is adopted and discussed hereditary gene panel. Patient does have family history of her son having bladder cancer. [facility] hereditary panel sent Hypokalemia 14959486 E87 .6 Currently taking for potassium 20 mEq daily. Will follow up labs. Mixed anxi ety and depressive disorder 152919725 F41.8 Patient returns on November 23, 2023. [...] reports depression has improved. Atopic conjunctivitis 23 4629105 H10.12 Conjunctiv itis due to Vectibix. This is improving. Iron defic iency anemia 79739026 D50.9 Receiving infusional iron as needed. Will continue to monitor. Insomnia 039373025 G47.0 0 Patient has had difficulty sleeping for most of her life. She has tried multiple medication s without relief. She is tried Mirtazapin e and lorazepam without improvemen t of insomnia. Discussed trying trazodone instead. Restless legs 33404808 G 25.81 Patient taking Requip for restless legs. Generalized rash 5454545 06 R21 Rash due to Vectibix. This has improved. Atrial fibrillation 4943 6004 I48.91 Patient has been diagnosed with congestive heart failure and atrial fibrillati on. She has been started on Coumadin. She is following with the Coumadin clinic at [facility]. Congestive heart failure 76192211 I50.9 Patient has been diagnosed with congestive heart failure. She has started lasix and is following with a cardiologi st. Cachexia 587824230 R64 Patient has had decreased appetite and weight loss. She is drinking nutritiona l supplement s. Discussed appetite stimulant. Patient previously refused. She has started on Megace. She does not like the taste of Megace. Discussed Megace tablets instead of liquid but patient declines at this time. Will continue to monitor History of deep vein thrombosis 965913878 Z86.718 Patient developed right lower extremity pain [...] repeat venous duplex. Drug therapy finding 309 930649 Z79.01 She continues on Coumadin due to a fib. She is following with the Coumadin clinic at [facility]. Acute post traumatic headache 0039404931 46426 G44.319 Patient returns on August 25, 2024. [...] Internatio nal normalized ratio above reference range 556911519 R79.1 Patient returns on August 25, 2024. [...] Name 08/25/2024 1 [place] Deshawn Roblero [id number] Deshawn Roblero 08/25/2024 2 [employer] (MEDICARE SUPPLEMENT) Deshawn Roblero [id number] Deshawn Roblero Notes Date Note Type Note Provider Name and Address Organization Details Recorded Time 08/25/2024 text/html 78 yo F returns for evaluation of metastatic colon cancer. Patient recently seen on February 17, 2023 in the emergency room at [facility] with abdominal pain. Patient reported epigastric [...] 8.2 hematocrit 29.0. MCV 67.9. Platelet count 663700. Normal cell differential. Low serum folate of [...] with metastatic colorectal cancer. Discussed chemotherapy with [place] based regimen with 5FU Leucovorin if [...] is following with the Coumadin clinic at [facility]. She is scheduled for cardiac [...] study published in September 2022 in the [place] Journal [facility] of combined Avastin therapy with [...] for tolerability and toxicity. Parish Snider PA-C [address], [place], [address], [facility] - [place] - [place] & [place] 08/25/2024 10:43:13 OBGyn Episode No OBEpisode recorded.
--- OUTSIDE RECORDS SUMMARY | 2024-10-21 10:38 | XMS_ITS | Continuity of Care Document ---
Author Organization [facility] Address [address] [place] [address] Care Team Providers Care Manager Data Warehouse Name Role Phone ADDY GONZALES General Surgeon CARLOS A COATS Primary Care Provider VERONIKA RIVER [employer] [phone] Assessment No assessment recorded. Plan of Treatment Reminders Order Date Submit Date Provider Last Modified By Organization Details Last Modified Time Details Appointments None recorded. Lab culture, stool 2024 025 [email or web address] 6 [facility], [address] [place], [address], 5 11:40:08 O&P (ova & parasites), stool 2024 025 [email or web address] 6 [facility], [address] [place], [address], 5 11:40:09 C diff screen, stool, reflex PCR 2024 025 [email or web address] 6 [facility], [address] [place], [address], 5 11:40:09 CBC w/ auto diff 2024 025 ISABEL [facility], [address] [place], [address], 5 16:09:44 CMP, serum or plasma 2024 025 ISABEL [facility], [address], [place], [address], 14:45:24 Referral None recorded. Procedures None recorded. Surgeries None recorded. Imaging None recorded. Medication Orders ondansetron 8 mg disintegrat ing tablet [address] [facility] [address], [address] [place], [address], 12:29:05 Pepcid 20 mg tablet [address] [facility] [address], [address] [place], [address], 12:29:05 Patient TargetsNo targets recorded. Patient InstructionsNo instructions recorded. Reason for Referral None Reported. Problems Name Problem SNOMED Code Status Onset Date Resolution Date Notes Provider Name and Address Organization Details Recorded Time Headache 17087875 Active 2024 Christine Farfan [place], [place] - [facility] & [place] 5 10:27:12 Metastatic malignant neoplasm to liver 08388736 Active 2022 Ghassan Lieberman PA-C [address] , [place], [address] , [place] [facility] [place] 3 14:27:25 Mass of colon 238678314 Active 2022 Ghassan Lieberman PA-C [address] , [place], [address] , [place] [facility] [place] 3 14:27:30 Anemia 052752506 Active 2022 Ghassan Lieberman PA-C [address], [place], [address] , [place] [facility] [place] 3 14:27:36 Nausea and vomiting 44531894 Active 2022 Ghassan Lieberman PA-C [address], [place], [address] , [facility] [place] 3 14:27:46 Unintentional weight loss 463748039 Active [address], [place], [address] , [facility] & [place] 3 16:13:07 Night sweats 97320817 Active [address], [place], [address] , [facility] & [place] 3 16:13:12 Problem Notes None recorded. Procedures Surgical History Date Name Laterality Status Provider Name and Address Organization Details Recorded Time 04/29/20 23 Venipuncture completed SANGITA Flores , [place], [address], [facility] & [place] 04/27/2023 15:05:29 04/15/20 23 Venipuncture completed Stephanie Maravilla [facility] & [place] 04/15/2023 15:24:55 hysterectomy completed Laurel Samuels [facility] & [place] 03/11/2023 15:30:22 extraction of cataract completed Laurel Samuels [facility] & [place] 03/11/2023 15:30:36 excision of colon completed Loree Tadeo [facility] & [place] 04/21/2023 11:32:07 Imaging Results None recorded. Procedure Notes None recorded. Medical Equipment None Reported. Allergies Allergen ID Allergen Name Allergen Category Reaction Reaction Severity Criticality Documentation Date Start Date Code Code System Note Provider Name and Address Organization Details Recorded Time 41841 tetracycl ine medicatio n hives Not available high 02/19/2023 96945 RxNorm Brandy Maciel paramjti [facility] & [place] 3 14:03:33 Medications Name Sig [...] Available Not Available No t Available Pepcid 10/10 /2023 completed Not Available Not Available Not Available [...] and Address Organization Details Last Updated DateTime 162.56 cm 97.2 [degF] 95 % 95 % 141 /min 20 /min 137 mm[Hg] 86 mm[Hg] Laurel Samuels [facility] & [place] 5 12:09:03 Social History Question Answer Notes LastModified by Hullab[employer] Details LastModified Time Tobacco Smoking Status Never Smoker Brandy [email or web address], [facility] & [place] 02/19/2023 14:02:59 What Is Your Level Of Caffeine Consumption? None [email or web address] Information not available 02/19/2023 What Was The Date Of Your Most Recent Tobacco Screening? 11/23/2023 [email or web address] Information not available 11/23/2023 Has Tobacco Cessation Counseling Been Provided? No Information not available 07/13/2023 Sex: Unknown Functional Status Question Answer Note LastModified by Hullabalu Details LastModified Time Do you use any illicit or recreational drugs? No [email or web address] Information not available 02/19/2023 Do you or have you ever used any other forms of tobacco or nicotine? No [email or web address] Information not available 02/19/2023 What is your level of alcohol consumption? None [email or web address] Information not available 02/19/2023 Mental Status None recorded. Family History Nothing Reported. Medical History No medical history recorded. Gynecological HistoryNo gynecological history recorded. Obstetrics History GPAL:G 0 P 0 0 0 0 Immunizations Vaccine Type Date Status Note Provider Nam e and Address Organization Details Recorded Time pneumococcal polysaccharide PPV23 7 completed Stephanie Maravilla [facility], [place] - [facility] [place] [facility] [place] 12/21/2023 09:56:34 Past Encounters Encounter ID Performer Location Encounter Start Date Encounter Closed Date Diagnosis/Indication Diagnosis SNOMED-CT Code Diagnosis ICD10 Code Diagnosis Note [id number] Hanna Snider PA-C [facility] [address] [place] [address] 08/10/2024 09:37:37 08/10/2024 10:29:37 Malignant tumor of ascending colon 576790509 C18.2 CT scan of the abdomen and [...] 8.2 hematocrit 29.0. MCV 67.9. Platelet count 211656. Normal cell differenti al. Low serum folate [...] study published in September 2022 in the [employer] of combined Avastin therapy with [...] liver lesions. Metastatic malignant neoplasm to liver 13414662 C78.7 CT scan of the abdomen and [...] patient is a candidate for radiation Nausea 260352872 R11.0 As needed Zofran and Phenergan prescribed . Discussed trying scopolamin e patches but her insurance wouldn't cover. She is taking Zofran with relief. Pain due t o neoplastic disease 7970849510 9102 G89.3 She is taking hydrocodon e 7.5 mg b.i.d. Discussed taking medication every 4-6 hours as needed. Anemia 248291599 D64.9 Right-side d colon mass concerning for malignancy . Will assess for any signs of iron deficiency . Hemoglobin previously 8.0. Concern for blood loss from colon mass. Patient reports dark stools. Labs on August 10, 2024 with hemoglobin slightly low at 11.9. She is receiving infusional iron as needed. Adopted 110308187 Z62.89 8 Patient is adopted and discussed hereditary gene panel. Patient does have family history of her son having bladder cancer. [facility] hereditary panel sent Antineopla stic chemotherapy regimen 946193407 Z51.11 Week 1 5FU Leucovorin Vectibix on [...] monitor for tolerabili ty and toxicity. Hypokalemia 11254564 E87 .6 Currently taking for potassium 20 mEq daily. Will follow up labs. Mixed anxi ety and depressive disorder 575392232 F41.8 Patient returns on November 23, 2023. [...] reports depression has improved. Atopic conjunctivitis 23 4817069 H10.12 Conjunctiv itis due to Vectibix. This is improving. Iron defic iency anemia 45736392 D50.9 Currently receiving infusional iron as needed. Will continue to monitor. Insomnia 961908676 G47.0 0 Patient has had difficulty sleeping for most of her life. She has tried multiple medication s without relief. She is tried Mirtazapin e and lorazepam without improvemen t of insomnia. Discussed trying trazodone instead. Restless legs 92464608 G 25.81 Patient taking Requip for restless legs. Generalized rash 7324186 06 R21 Patient with rash due to Vectibix. This is improving. Atrial fibrillation 4943 6004 I48.91 Patient has been diagnosed with congestive heart failure and atrial fibrillati on. She has been started on Coumadin. She is following with the Coumadin clinic at [facility]. Congestive heart failure 09549796 I50.9 Patient has been diagnosed with congestive heart failure. She has started lasix and is following with a cardiologi st. Cachexia 354294490 R64 Patient has had decreased appetite and weight loss. She is drinking nutritiona l supplement s. Discussed appetite stimulant. Patient previously refused. She has started on Megace. Will continue to monitor History of deep vein thrombosis 363083538 Z86.718 Patient developed right lower extremity pain [...] repeat venous duplex. Drug therapy finding 309 298797 Z79.01 She continues on Coumadin due to a fib. She is following with the Coumadin clinic at [facility]. [id number] Hanna Snider PA-C [facility] [address] [place] [address] 08/25/2024 09:02:23 08/25/2024 09:51:52 Antineoplastic chemotherapy regimen 211775557 Z51.11 Week 1 5FU Leucovorin Vectibix on [...] and toxicity. Malignant tumor of ascending colon 053511922 C18.2 CT scan of the abdomen and [...] 8.2 hematocrit 29.0. MCV 67.9. Platelet count 956078. Normal cell differenti al. Low serum folate [...] study published in September 2022 in the [employer] [facility] of combined Avastin therapy with [...] liver lesions. Metastatic malignant neoplasm to liver 02196370 C78.7 CT scan of the abdomen and [...] patient is a candidate for radiation Nausea 301950171 R11.0 As needed Zofran and Phenergan prescribed . Discussed trying scopolamin e patches but her insurance wouldn't cover. She is taking Zofran with relief. Pain due t o neoplastic disease 6877306198 9102 G89.3 She is taking hydrocodon e [...] does take her current medication s Anemia 383817786 D64.9 Right-side d colon mass concerning for malignancy . Will assess for any signs of iron deficiency . Hemoglobin previously 8.0. Concern for blood loss from colon mass. Patient reports dark stools. Labs on August 10, 2024 with hemoglobin slightly low at 11.9. She is receiving infusional iron as needed. Adopted 723993401 Z62.89 8 Patient is adopted and discussed hereditary gene panel. Patient does have family history of her son having bladder cancer. [facility] hereditary panel sent Hypokalemia 32859493 E87 .6 Currently taking for potassium 20 mEq daily. Will follow up labs. Mixed anxi ety and depressive disorder 956038975 F41.8 Patient returns on November 23, 2023. [...] reports depression has improved. Atopic conjunctivitis 23 8086431 H10.12 Conjunctiv itis due to Vectibix. This is improving. Iron defic iency anemia 92324777 D50.9 Receiving infusional iron as needed. Will continue to monitor. Insomnia 840948053 G47.0 0 Patient has had difficulty sleeping for most of her life. She has tried multiple medication s without relief. She is tried Mirtazapin e and lorazepam without improvemen t of insomnia. Discussed trying trazodone instead. Restless legs 84185858 G 25.81 Patient taking Requip for restless legs. Generalized rash 5311274 06 R21 Rash due to Vectibix. This has improved. Atrial fibrillation 4943 6004 I48.91 Patient has been diagnosed with congestive heart failure and atrial fibrillati on. She has been started on Coumadin. She is following with the Coumadin clinic at [facility]. Congestive heart failure 58923218 I50.9 Patient has been diagnosed with congestive heart failure. She has started lasix and is following with a cardiologi st. Cachexia 288796837 R64 Patient has had decreased appetite and weight loss. She is drinking nutritiona l supplement s. Discussed appetite stimulant. Patient previously refused. She has started on Megace. She does not like the taste of Megace. Discussed Megace tablets instead of liquid but patient declines at this time. Will continue to monitor History of deep vein thrombosis 181249544 Z86.718 Patient developed right lower extremity pain [...] repeat venous duplex. Drug therapy finding 309 981777 Z79.01 She continues on Coumadin due to a fib. She is following with the Coumadin clinic at [facility]. Acute post traumatic headache 4418072887 62262 G44.319 Patient returns on August 25, 2024. [...] Internatio nal normalized ratio above reference range 505324197 R79.1 Patient returns on August 25, 2024. She is on Coumadin for atrial fibrillati on and her INR is elevated. She is going to the Coumadin Clinic for management . INR 8 today. She is going to hold Coumadin and contact Coumadin Clinic for directions today. Denies any bleeding at this time. [id number] Hanna Snider PA-C [facility] [address] [place] [address] 09/02/2024 11:29:36 09/02/2024 12:07:33 Antineoplastic chemotherapy regimen 961152767 Z51.11 Week 1 5FU Leucovorin Vectibix on [...] follow up. Malignant tumor of ascending colon 765505461 C18.2 CT scan of the abdomen and [...] 8.2 hematocrit 29.0. MCV 67.9. Platelet count 867131. Normal cell differenti al. Low serum folate [...] study published in September 2022 in the [employer] [facility] of combined Avastin therapy with [...] liver lesions. Metastatic malignant neoplasm to liver 40111558 C78.7 CT scan of the abdomen and [...] patient is a candidate for radiation Nausea 466603851 R11.0 As needed Zofran and Phenergan prescribed [...] ons. Pain due t o neoplastic disease 0617769155 9102 G89.3 She is taking hydrocodon e [...] tab po every 3-4 hours instead. Anemia 587923749 D64.9 Right-side d colon mass concerning for malignancy . Will assess for any signs of iron deficiency . Hemoglobin previously 8.0. Concern for blood loss from colon mass. Patient reports dark stools. Labs on August 10, 2024 with hemoglobin slightly low at 11.9. She is receiving infusional iron as needed. Adopted 542725830 Z62.89 8 Patient is adopted and discussed hereditary gene panel. Patient does have family history of her son having bladder cancer. [facility] hereditary panel sent Hypokalemia 41206624 E87 .6 Currently taking for potassium 20 mEq daily. Will follow up labs. Mixed anxi ety and depressive disorder 553558932 F41.8 Patient returns on November 23, 2023. [...] reports depression has improved. Atopic conjunctivitis 23 0586262 H10.12 Conjunctiv itis due to Vectibix. This is improving. Iron defic iency anemia 91258417 D50.9 Receiving infusional iron as needed. Will continue to monitor. Insomnia 510210938 G47.0 0 Patient has had difficulty sleeping for most of her life. She has tried multiple medication s without relief. She is tried Mirtazapin e and lorazepam without improvemen t of insomnia. Discussed trying trazodone instead. Restless legs 23998765 G 25.81 Patient taking Requip for restless legs. Generalized rash 3416638 06 R21 Rash due to Vectibix. This has improved. Atrial fibrillation 4943 6004 I48.91 Patient has been diagnosed with congestive heart failure and atrial fibrillati on. She has been started on Coumadin. She is following with the Coumadin clinic at [facility]. Congestive heart failure 01383460 I50.9 Patient has been diagnosed with congestive heart failure. She has started lasix and is following with a cardiologi st. Cachexia 957675789 R64 Patient has had decreased appetite and weight loss. She is drinking nutritiona l supplement s. Discussed appetite stimulant. Patient previously refused. She has started on Megace. She does not like the taste of Megace. Discussed Megace tablets instead of liquid but patient declines at this time. Will continue to monitor History of deep vein thrombosis 977918255 Z86.718 Patient developed right lower extremity pain [...] repeat venous duplex. Drug therapy finding 309 900143 Z79.01 She continues on Coumadin due to a fib. She is following with the Coumadin clinic at [facility]. Internatio nal normalized ratio above reference range 988132361 R79.1 Patient returns on August 25, 2024. She is on Coumadin for atrial fibrillati on and her INR is elevated. She is going to the Coumadin Clinic for management . INR 8 today. She is going to hold Coumadin and contact Coumadin Clinic for directions today. Denies any bleeding at this time. Diarrhea 18574764 R19.7 Patient with increased diarrhea, nausea, and vomiting for the past 4 days. She is taking Imodium and Lomotil without relief. She has a history of C diff. Will order stool studies today. Will check stool for C diff today. Dehydration 76556398 E86 .0 Patient returns on September 02, [...] Guarantor Name 09/02/2024 1 [place] (MEDICARE[place] Vicky Laura Roblero [id number] Vicky Frank Roblero 09/02/2024 2 [employer] (MEDICARE SUPPLEMENT) Vicky Frank Roblero [id number] Vicky Roblero Notes Date Note Type Note Provider Name and Address Organization Details Recorded Time 09/02/2024 text/html 78 yo F returns for evaluation of metastatic colon cancer. Patient recently seen on February 17, 2023 in the emergency room at [facility] with abdominal pain. Patient reported [...] 8.2 hematocrit 29.0. MCV 67.9. Platelet count 643652. Normal cell differential. Low serum folate of [...] with metastatic colorectal cancer. Discussed chemotherapy with [place] based regimen with 5FU Leucovorin if [...] study published in September 2022 in the [employer] [facility] of combined Avastin therapy with [...] cycle. Will follow up. Hanna Snider PA-C [address], [place], [address], [facility] [place] & [place] 09/02/2024 12:55:35 OBGyn Episode No OBEpisode recorded.
--- OUTSIDE RECORDS SUMMARY | 2024-10-21 10:38 | XMS_ITS | Data Portability ---
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 Plan of Treatment Reminders Order Date Submit Date Provider Last Modified By Organization Details Last Modified Time Details Appointments None recorded. Lab culture, stool 2024 025 [email or web address], [address] [place], [address], 5 11:40:08 O&P (ova & parasites), stool 2024 025 [email or web address], [address] [place], [address], 5 11:40:09 C diff screen, stool, reflex PCR 2024 025 [email or web address], [address] [place], [address], 5 11:40:09 CBC w/ auto diff 2024 025 [facility], [address] [place], [address], 5 16:09:44 CMP, serum or plasma 2024 025 [facility], [address] [place], [address], 5 14:45:24 CBC w/ auto diff 2024 025 [facility], [address] [place], [address], 5 09:46:31 CMP, serum or plasma 2024 025 [facility], [address] [place], [address], 5 09:39:00 carcinoembr yonic Ag, quant, serum or plasma 2024 025 [email or web address] 6 [facility], [address] [place], [address], 5 09:16:06 carcinoembr yonic Ag, quant, serum or plasma 2024 025 [email or web address] 6 [facility], [address] [place], [address], 5 09:07:03 CMP, serum or plasma 2024 025 [email or web address], [address] [place], [address], 5 11:45:06 CBC w/ diff 2024 025 [email or web address] 6 [facility], [address] [place], [address], 5 09:07:03 Referral radiation oncologist referral 2024 025 [email or web address] 6 Mary Valencia MD, [address] [place], [address], 5 08:24:10 Procedures None recorded. Surgeries None recorded. Imaging CT, head + brain, w/o contrast 2024 025 [email or web address] [address], [place], [address], 09:16:16 Medication Orders ondansetron 8 mg disintegrat ing tablet [address] [facility], [address] [place], [address], 5 12:29:05 Pepcid 20 mg tablet [address] [facility] [address], [address] [place], [address], 5 12:29:05 megestrol 400 mg/10 mL (40 mg/mL) oral suspension 2024 025 7 [facility], [address] [place], [address], 5 11:59:15 megestrol 400 mg/10 mL (40 mg/mL) oral suspension [address] [facility] [address], [address] [place], [address], 5 11:45:06 Patient TargetsNo targets recorded. Patient InstructionsNo instructions recorded. Reason for Referral Referring Physician: Hanna Snider, Hematology/Oncology, Encounter Date: 08/10/2024 Results Created Date Observation Date Name Description Value Unit Range Abnormal Flag Note LastModifiedBy Organization Detail LastModifiedTime 06/27/1906/27/2024 CBC AUTO W DIFF WBC 10.0 K/uL 4.0-10 .5 Not Available [facility] [address], [place], [address], 06/27/2024 10:19:00 06/27/1906/2706/27/2024 CBC AUTO W DIFF RBC 4.0 M/mm3 4.2-6. 4 low Not Available [facility] ([facility]) [address] , [place], [address], 06/27/2024 10:19:00 06/27/19 25 06/27/2024 CBC AUTO W DIFF HGB 11.5 gm/dL 12.5-1 6.0 low Not Available [facility] ([facility]) [address] , [place], [address], 06/27/2024 10:19:00 06/27/19 25 06/27/2024 CBC AUTO W DIFF HCT 36.0 % 37.0-4 7.0 low Not Available [facility] ([facility]) [address] , [place], [address], 06/27/2024 10:19:00 06/27/19 25 06/27/2024 CBC AUTO W DIFF MCV 91.1 fL 78-100 Not Available [facility] ([facility]) [address] , [place], [address], 06/27/2024 10:19:00 06/27/19 25 06/27/2024 CBC AUTO W DIFF MCH 29.1 pg 27-31 Not Available [facility] ([facility]) [address] , [place], [address], 06/27/2024 10:19:00 06/27/19 25 06/27/2024 CBC AUTO W DIFF MCHC 31.9 g/dL 32-36 low Not Available [facility] ([facility]) [address] [place], [address], 06/27/2024 10:19:00 06/27/19 25 06/27/2024 CBC AUTO W DIFF RDW 15.9 % 11.5-1 4.0 high Not Available [facility] ([facility]) [address] [place], [address], 06/27/2024 10:19:00 06/27/19 25 06/27/2024 CBC AUTO W DIFF platelet count 311 K/uL 150-45 0 Not Available [facility] ([facility]) [address], [place], [address], 06/27/2024 10:19:00 06/27/19 25 06/27/2024 CBC AUTO W DIFF MPV 9.1 fL 6-9.5 Not Available [facility] ([facility]) [address], [place], [address], 06/27/2024 10:19:00 06/27/19 25 06/27/2024 CBC AUTO W DIFF neutrophil% 70.9 % 43-65 high Not Available [facility] ([facility]) [address], [place], [address], 06/27/2024 10:19:00 06/27/19 25 06/27/2024 CBC AUTO W DIFF lymphocyte% 13.3 % 20.5-4 5.5 low Not Available [facility] ([facility]) [address] [place], [address], 06/27/2024 10:19:00 06/27/19 25 06/27/2024 CBC AUTO W DIFF monocyte% 7.2 % 5.5-11 .7 Not Available [facility] ([facility]) [address] [place], [address], 06/27/2024 10:19:00 06/27/19 25 06/27/2024 CBC AUTO W DIFF eosinophil% 7.4 % 0.9-2. 9 high Not Available [facility] ([facility]) [address] [place], [address], 06/27/2024 10:19:00 06/27/19 25 06/27/2024 CBC AUTO W DIFF basophil% 0.8 % 0.2-1. 0 Not Available [facility] ([facility]) [address], [place], [address], 06/27/2024 10:19:00 06/27/19 25 06/27/2024 CBC AUTO W DIFF immature granulocytes % 0.4 % 0.0-0. 8 Not Available [facility] ([facility]) [address] [facility], [place], [address], 06/27/2024 10:19:00 06/27/19 25 06/27/2024 CBC AUTO W DIFF nucleated red blood cells % 0.0 % Not Available [facility] ([facility]) [address] [facility], [place], [address], 06/27/2024 10:19:00 06/27/19 25 06/27/2024 CBC AUTO W DIFF neutrophil# 7.1 K/uL 2.2-4. 8 high Not Available [facility] ([facility]) [address] [facility], [place], [address], 06/27/2024 10:19:00 06/27/19 25 06/27/2024 CBC AUTO W DIFF lymphocyte# 1.3 cell/ mcL 1.3-2. 9 Not Available [facility] ([facility]) [address] [facility], [place], [address], 06/27/2024 10:19:00 06/27/19 25 06/27/2024 CBC AUTO W DIFF monocyte# 0.7 cell/ mcL 0.3-0. 8 Not Available [facility] ([facility]) [address] [place], [address], 06/27/2024 10:19:00 06/27/19 25 06/27/2024 CBC AUTO W DIFF eosinophil# 0.7 cell/ mcL 0-0.2 high Not Available [facility] ([facility]) [address] [place], [address], 06/27/2024 10:19:00 06/27/19 25 06/27/2024 CBC AUTO W DIFF basophil# 0.1 cell/ mcL 0.0-1. 0 Not Available [facility] ([facility]) [address] [place], [address], 06/27/2024 10:19:00 06/27/19 25 06/27/2024 CBC AUTO W DIFF immature gramulocytes # 0.04 K/uL Not Available [facility] ([facility]) [address], [place], [address], 06/27/2024 10:19:00 06/27/19 25 06/27/2024 CBC AUTO W DIFF nucleated red blood cells # 0.00 K/uL Not Available [facility] ([facility]) [address], [place], [address], 06/27/2024 10:19:00 06/27/19 25 06/27/2024 CBC AUTO W DIFF manual differential NO Not Available [facility] ([facility]) [address], [place], [address], 06/27/2024 10:19:00 06/27/19 25 06/27/2024 PT (PROT HROMB IN TIME) W INR prothrombin time 34.6 secon ds 9.3-11 .4 high Not Available [facility] ([facility]) [address], [place], [address], 06/27/2024 10:32:54 06/27/19 25 06/27/2024 PT (PROT [...] Mecha nical Heart Valve s Not Available [facility] ([facility]) [address] [place], [address], 06/27/2024 10:32:54 06/27/19 25 06/27/2024 COMP METAB OLIC PANEL sodium 140 mmol/ L 136-14 5 Not Available [facility] ([facility]) [address] [facility], [place], [address], 06/27/2024 10:33:59 06/27/19 25 06/27/2024 COMP METAB OLIC PANEL potassium 3.3 mmol/ L 3.6-5. 0 low Not Available [facility] ([facility]) [address] [facility], [place], [address], 06/27/2024 10:33:59 06/27/19 25 06/27/2024 COMP METAB OLIC PANEL chloride 100 mmol/ L 98-107 Not Available [facility] ([facility]) [address] [place], [address], 06/27/2024 10:33:59 06/27/19 25 06/27/2024 COMP METAB OLIC PANEL carbon dioxide 33.1 mmol/ L 21.0-3 2.0 high Not Available [facility] ([facility]) [address] [place], [address], 06/27/2024 10:33:59 06/27/19 25 06/27/2024 COMP METAB OLIC PANEL anion gap 10.2 Not Available [facility] ([facility]) [address] [place], [address], 06/27/2024 10:33:59 06/27/19 25 06/27/2024 COMP METAB OLIC PANEL glucose 151 mg/dL 70-120 high Not Available [facility] ([facility]) [address] [place], [address], 06/27/2024 10:33:59 06/27/19 25 06/27/2024 COMP METAB OLIC PANEL BUN 15 mg/dL 7-18 Not Available [facility] ([facility]) [address], [place], [address], 06/27/2024 10:33:59 06/27/19 25 06/27/2024 COMP METAB OLIC PANEL creatinine 1.0 mg/dL 0.6-1. 3 Not Available [facility] ([facility]) [address], [place], [address], 06/27/2024 10:33:59 06/27/19 25 06/27/2024 COMP METAB [...] albrecht ing kiney funct ion. Not Available [facility] ([facility]) [address] , [place], [address], 06/27/2024 10:33:59 06/27/19 25 06/27/2024 COMP METAB OLIC PANEL total protein 6.9 g/dL 6.4-8. 2 Not Available [facility] ([facility]) [address] , [place], [address], 06/27/2024 10:33:59 06/27/19 25 06/27/2024 COMP METAB OLIC PANEL albumin 3.0 g/dL 3.4-5. 0 low Not Available [facility] ([facility]) [address] , [place], [address], 06/27/2024 10:33:59 06/27/19 25 06/27/2024 COMP METAB OLIC PANEL globulin 3.9 Not Available [facility] ([facility]) [address] , [place], [address], 06/27/2024 10:33:59 06/27/19 25 06/27/2024 COMP METAB OLIC PANEL alb/glob ratio 0.8 0.7-2 Not Available [facility] ([facility]) [address] , [place], [address], 06/27/2024 10:33:59 06/27/19 25 06/27/2024 COMP METAB OLIC PANEL calcium 9.2 mg/dL 8.5-10 .5 Not Available [facility] ([facility]) [address], [place], [address], 06/27/2024 10:33:59 06/27/19 25 06/27/2024 COMP METAB OLIC PANEL bilirubin total 0.70 mg/dL 0.10-1 .00 Not Available [facility] ([facility]) [address], [place], [address], 06/27/2024 10:33:59 06/27/19 25 06/27/2024 COMP METAB OLIC PANEL AST (SGOT) 41 U/L 0-37 high Not Available [facility] ([facility]) [address], [place], [address], 06/27/2024 10:33:59 06/27/19 25 06/27/2024 COMP METAB OLIC PANEL ALT (SGPT) 15 U/L 0-65 Not Available [facility] ([facility]) [address] [place], [address], 06/27/2024 10:33:59 06/27/19 25 06/27/2024 COMP METAB OLIC PANEL alk phosphatase 217 U/L 46-116 high Not Available [facility] ([facility] [address] [facility] [place] [address], 06/27/2024 10:33:59 06/27/19 25 06/27/2024 MAGNE SIUM magnesium 2.2 mg/dL 1.8-2. 4 Not Available [facility] ([facility]) [address] [facility], [place], [address], 06/27/2024 10:34:02 06/27/19 25 06/27/2024 IRON STUDY (IRON /TIBC /%SAT ) iron 24 mcg/m L 40-180 low Not Available [facility] ([facility]) [address] [facility], [place], [address], 06/27/2024 11:58:15 06/27/19 25 06/27/2024 IRON STUDY (IRON /TIBC /%SAT ) TIBC 230 mcg/d L 250-45 0 low Not Available [facility] ([facility]) [address] [facility], [place], [address], 06/27/2024 11:58:15 06/27/19 25 06/27/2024 IRON STUDY (IRON /TIBC /%SAT ) %sat 10 15-55 low Not Available [facility] ([facility]) [address] [facility], [place], [address], 06/27/2024 11:58:15 06/27/19 25 06/27/2024 JUAN A TIN ferritin, serum 458 NG/mL 3-244 high Not Available [facility] ([facility]) [address] [place], [address], 06/27/2024 12:21:28 06/27/19 25 06/28/2024 CEA cea [...] t be inter prete d as absol [place] evide nce of the prese nce or absen ce of [facility] se. Perfo rmed at: - [facility] [address] [id number] Lab Direc tor: Tate staton PhD, Phone : [phone] Not Available [facility] ([facility]) [address] [facility], [place], [address], 06/28/2024 13:09:29 07/11/19 25 07/11/2024 CBC AUTO W DIFF WBC 6.9 K/uL 4.0-10 .5 Not Available [facility] ([facility]) [address] [facility], [place], [address], 07/11/2024 10:30:50 07/11/19 25 07/11/2024 CBC AUTO W DIFF RBC 3.8 M/mm3 4.2-6. 4 low Not Available [facility] ([facility]) [address] [facility], [place], [address], 07/11/2024 10:30:50 07/11/19 25 07/11/2024 CBC AUTO W DIFF HGB 11.0 gm/dL 12.5-1 6.0 low Not Available [facility] ([facility]) [address] [facility], [place], [address], 07/11/2024 10:30:50 07/11/19 25 07/11/2024 CBC AUTO W DIFF HCT 34.5 % 37.0-4 7.0 low Not Available [facility] ([facility]) [address] [place], [address], 07/11/2024 10:30:50 07/11/19 25 07/11/2024 CBC AUTO W DIFF MCV 92.0 fL 78-100 Not Available [facility] ([facility]) [address] [facility], [place], [address], 07/11/2024 10:30:50 07/11/19 25 07/11/2024 CBC AUTO W DIFF MCH 29.3 pg 27-31 Not Available [facility] ([facility]) [address], [place], [address], 07/11/2024 10:30:50 07/11/19 25 07/11/2024 CBC AUTO W DIFF MCHC 31.9 g/dL 32-36 low Not Available [facility] ([facility]) [address], [place], [address], 07/11/2024 10:30:50 07/11/19 25 07/11/2024 CBC AUTO W DIFF RDW 15.9 % 11.5-1 4.0 high Not Available [facility] ([facility]) [address] [facility], [place], [address], 07/11/2024 10:30:50 07/11/19 25 07/11/2024 CBC AUTO W DIFF platelet count 267 K/uL 150-45 0 Not Available [facility] ([facility]) [address], [place], [address], 07/11/2024 10:30:50 07/11/19 25 07/11/2024 CBC AUTO W DIFF MPV 9.1 fL 6-9.5 Not Available [facility] ([facility]) [address] [place], [address], 07/11/2024 10:30:50 07/11/19 25 07/11/2024 CBC AUTO W DIFF neutrophil% 66.2 % 43-65 high Not Available [facility] ([facility]) [address] [place], [address], 07/11/2024 10:30:50 07/11/19 25 07/11/2024 CBC AUTO W DIFF lymphocyte% 18.6 % 20.5-4 5.5 low Not Available [facility] ([facility]) [address], [place], [address], 07/11/2024 10:30:50 07/11/19 25 07/11/2024 CBC AUTO W DIFF monocyte% 11.5 % 5.5-11 .7 Not Available [facility] ([facility]) [address] [facility], [place], [address], 07/11/2024 10:30:50 07/11/19 25 07/11/2024 CBC AUTO W DIFF eosinophil% 2.7 % 0.9-2. 9 Not Available [facility] ([facility]) [address] [facility], [place], [address], 07/11/2024 10:30:50 07/11/19 25 07/11/2024 CBC AUTO W DIFF basophil% 0.6 % 0.2-1. 0 Not Available [facility] ([facility]) [address] [facility], [place], [address], 07/11/2024 10:30:50 07/11/19 25 07/11/2024 CBC AUTO W DIFF immature granulocytes % 0.4 % 0.0-0. 8 Not Available [facility] ([facility]) [address] [facility], [place], [address], 07/11/2024 10:30:50 07/11/19 25 07/11/2024 CBC AUTO W DIFF nucleated red blood cells % 0.0 % Not Available [facility] ([facility]) [address] [facility], [place], [address], 07/11/2024 10:30:50 07/11/19 25 07/11/2024 CBC AUTO W DIFF neutrophil# 4.6 K/uL 2.2-4. 8 Not Available [facility] ([facility]) [address] [place], [address], 07/11/2024 10:30:50 07/11/19 25 07/11/2024 CBC AUTO W DIFF lymphocyte# 1.3 cell/ mcL 1.3-2. 9 Not Available [facility] ([facility]) [address] [facility], [place], [address], 07/11/2024 10:30:50 07/11/19 25 07/11/2024 CBC AUTO W DIFF monocyte# 0.8 cell/ mcL 0.3-0. 8 Not Available [facility] ([facility]) [address] [facility], [place], [address], 07/11/2024 10:30:50 07/11/19 25 07/11/2024 CBC AUTO W DIFF eosinophil# 0.2 cell/ mcL 0-0.2 Not Available [facility] ([facility]) [address] [facility], [place], [address], 07/11/2024 10:30:50 07/11/19 25 07/11/2024 CBC AUTO W DIFF basophil# 0.0 cell/ mcL 0.0-1. 0 Not Available [facility] ([facility]) [address] [facility], [place], [address], 07/11/2024 10:30:50 07/11/19 25 07/11/2024 CBC AUTO W DIFF immature gramulocytes # 0.03 K/uL Not Available [facility] ([facility]) [address] [place], [address], 07/11/2024 10:30:50 07/11/19 25 07/11/2024 CBC AUTO W DIFF nucleated red blood cells # 0.00 K/uL Not Available [facility] ([facility]) [address] [place], [address], 07/11/2024 10:30:50 07/11/19 25 07/11/2024 CBC AUTO W DIFF manual differential NO Not Available [facility] ([facility]) [address] , [place], [address], 07/11/2024 10:30:50 07/11/19 25 07/11/2024 COMP METAB OLIC PANEL sodium 137 mmol/ L 136-14 5 Not Available [facility] ([facility]) [address], [place], [address], 07/11/2024 10:45:53 07/11/19 25 07/11/2024 COMP METAB OLIC PANEL potassium 3.4 mmol/ L 3.6-5. 0 low Not Available [facility] ([facility]) [address], [place], [address], 07/11/2024 10:45:53 07/11/19 25 07/11/2024 COMP METAB OLIC PANEL chloride 100 mmol/ L 98-107 Not Available [facility] ([facility]) [address], [place], [address], 07/11/2024 10:45:53 07/11/19 25 07/11/2024 COMP METAB OLIC PANEL carbon dioxide 28.2 mmol/ L 21.0-3 2.0 Not Available [facility] ([facility]) [address], [place], [address], 07/11/2024 10:45:53 07/11/19 25 07/11/2024 COMP METAB OLIC PANEL anion gap 12.2 Not Available [facility] ([facility]) [address], [place], [address], 07/11/2024 10:45:53 07/11/19 25 07/11/2024 COMP METAB OLIC PANEL glucose 208 mg/dL 70-120 high Not Available [facility] ([facility]) [address] [place], [address], 07/11/2024 10:45:53 07/11/19 25 07/11/2024 COMP METAB OLIC PANEL BUN 16 mg/dL 7-18 Not Available [facility] ([facility]) [address], [place], [address], 07/11/2024 10:45:53 07/11/19 25 07/11/2024 COMP METAB OLIC PANEL creatinine 1.2 mg/dL 0.6-1. 3 Not Available [facility] ([facility]) [address], [place], [address], 07/11/2024 10:45:53 07/11/19 25 07/11/2024 COMP METAB [...] parap legia or quadr ipleg ia, veget sukhiwnder diet or rapid ly albrecht ing kiney funct ion. Not Available [facility] ([facility]) [address] , [place], [address], 07/11/2024 10:45:53 07/11/19 25 07/11/2024 COMP METAB OLIC PANEL total protein 6.6 g/dL 6.4-8. 2 Not Available [facility] ([facility]) [address] , [place], [address], 07/11/2024 10:45:53 07/11/19 25 07/11/2024 COMP METAB OLIC PANEL albumin 2.3 g/dL 3.4-5. 0 low Not Available [facility] ([facility]) [address], [place], [address], 07/11/2024 10:45:53 07/11/19 25 07/11/2024 COMP METAB OLIC PANEL globulin 4.3 Not Available [facility] ([facility]) [address], [place], [address], 07/11/2024 10:45:53 07/11/19 25 07/11/2024 COMP METAB OLIC PANEL alb/glob ratio 0.5 0.7-2 low Not Available [facility] ([facility]) [address], [place], [address], 07/11/2024 10:45:53 07/11/19 25 07/11/2024 COMP METAB OLIC PANEL calcium 8.9 mg/dL 8.5-10 .5 Not Available [facility] ([facility]) [address], [place], [address], 07/11/2024 10:45:53 07/11/19 25 07/11/2024 COMP METAB OLIC PANEL bilirubin total 0.50 mg/dL 0.10-1 .00 Not Available [facility] ([facility]) [address] , [place], [address], 07/11/2024 10:45:53 07/11/19 25 07/11/2024 COMP METAB OLIC PANEL AST (SGOT) 50 U/L 0-37 high Not Available [facility] ([facility]) [address] , [place], [address], 07/11/2024 10:45:53 07/11/19 25 07/11/2024 COMP METAB OLIC PANEL ALT (SGPT) 20 U/L 0-65 Not Available [facility] ([facility]) [address], [place], [address], 07/11/2024 10:45:53 07/11/19 25 07/11/2024 COMP METAB OLIC PANEL alk phosphatase 248 U/L 46-116 high Not Available [facility] ([facility]) [address], [place], [address], 07/11/2024 10:45:53 07/11/19 25 07/11/2024 MAGNE SIUM magnesium 2.3 mg/dL 1.8-2. 4 Not Available [facility] ([facility]) [address], [place], [address], 07/11/2024 10:45:56 07/11/19 25 07/11/2024 PT (PROT HROMB IN TIME) W INR prothrombin time 14.3 secon ds 9.3-11 .4 high Not Available [facility] ([facility]) [address], [place], [address], 07/11/2024 10:59:01 07/11/19 25 07/11/2024 PT (PROT [...] Mecha nical Heart Valve s Not Available [facility] ([facility]) [address] [facility], [place], [address], 07/11/2024 10:59:01 07/11/19 25 07/12/2024 CEA cea [...] t be inter prete d as absol [place] evide nce of the prese nce or absen ce of [facility] se. Perfo rmed at: CB - [facility] [address] [facility], [place] [address] [facility] Lab Direc tor: Tate staton PhD, Phone : [phone] Not Available [facility] ([facility]) [address] , [place], [address], 07/12/2024 13:09:06 07/25/19 25 07/25/2024 MAGNE SIUM magnesium 1.8 mg/dL 1.8-2. 4 Not Available [facility] ([facility]) [address] , [place], [address], 07/25/2024 10:51:25 07/25/19 25 07/25/2024 CBC AUTO W DIFF WBC 9.0 K/uL 4.0-10 .5 Not Available [facility] ([facility]) [address] , [place], [address], 07/25/2024 10:52:22 07/25/19 25 07/25/2024 CBC AUTO W DIFF RBC 4.3 M/mm3 4.2-6. 4 Not Available [facility] ([facility]) [address] , [place], [address], 07/25/2024 10:52:22 07/25/19 25 07/25/2024 CBC AUTO W DIFF HGB 12.6 gm/dL 12.5-1 6.0 Not Available [facility] ([facility]) [address] , [place], [address], 07/25/2024 10:52:22 07/25/19 25 07/25/2024 CBC AUTO W DIFF HCT 39.6 % 37.0-4 7.0 Not Available [facility] ([facility]) [address] , [place], [address], 07/25/2024 10:52:22 07/25/19 25 07/25/2024 CBC AUTO W DIFF MCV 92.7 fL 78-100 Not Available [facility] ([facility]) [address] , [place], [address], 07/25/2024 10:52:22 07/25/19 25 07/25/2024 CBC AUTO W DIFF MCH 29.5 pg 27-31 Not Available [facility] ([facility]) [address] , [place], [address], 07/25/2024 10:52:22 07/25/19 25 07/25/2024 CBC AUTO W DIFF MCHC 31.8 g/dL 32-36 low Not Available [facility] ([facility]) [address] , [place], [address], 07/25/2024 10:52:22 07/25/19 25 07/25/2024 CBC AUTO W DIFF RDW 16.8 % 11.5-1 4.0 high Not Available [facility] ([facility]) [address], [place], [address], 07/25/2024 10:52:22 07/25/19 25 07/25/2024 CBC AUTO W DIFF platelet count 234 K/uL 150-45 0 Not Available [facility] ([facility]) [address] , [place], [address], 07/25/2024 10:52:22 07/25/19 25 07/25/2024 CBC AUTO W DIFF MPV 9.2 fL 6-9.5 Not Available [facility] ([facility]) [address] , [place], [address], 07/25/2024 10:52:22 07/25/19 25 07/25/2024 CBC AUTO W DIFF neutrophil% 70.3 % 43-65 high Not Available [facility] ([facility]) [address] [place], [address], 07/25/2024 10:52:22 07/25/19 25 07/25/2024 CBC AUTO W DIFF lymphocyte% 16.5 % 20.5-4 5.5 low Not Available [facility] ([facility]) [address], [place], [address], 07/25/2024 10:52:22 07/25/19 25 07/25/2024 CBC AUTO W DIFF monocyte% 7.0 % 5.5-11 .7 Not Available [facility] ([facility]) [address], [place], [address], 07/25/2024 10:52:22 07/25/19 25 07/25/2024 CBC AUTO W DIFF eosinophil% 5.3 % 0.9-2. 9 high Not Available [facility] ([facility]) [address] [facility], [place], [address], 07/25/2024 10:52:22 07/25/19 25 07/25/2024 CBC AUTO W DIFF basophil% 0.6 % 0.2-1. 0 Not Available [facility] ([facility]) [address] [facility], [place], [address], 07/25/2024 10:52:22 07/25/19 25 07/25/2024 CBC AUTO W DIFF immature granulocytes % 0.3 % 0.0-0. 8 Not Available [facility] ([facility]) [address] [facility], [place], [address], 07/25/2024 10:52:22 07/25/19 25 07/25/2024 CBC AUTO W DIFF nucleated red blood cells % 0.0 % Not Available [facility] ([facility]) [address] [facility], [place], [address], 07/25/2024 10:52:22 07/25/19 25 07/25/2024 CBC AUTO W DIFF neutrophil# 6.3 K/uL 2.2-4. 8 high Not Available [facility] ([facility]) [address] [place], [address], 07/25/2024 10:52:22 07/25/19 25 07/25/2024 CBC AUTO W DIFF lymphocyte# 1.5 cell/ mcL 1.3-2. 9 Not Available [facility] ([facility]) [address], [place], [address], 07/25/2024 10:52:22 07/25/19 25 07/25/2024 CBC AUTO W DIFF monocyte# 0.6 cell/ mcL 0.3-0. 8 Not Available [facility] ([facility]) [address] [facility], [place], [address], 07/25/2024 10:52:22 07/25/19 25 07/25/2024 CBC AUTO W DIFF eosinophil# 0.5 cell/ mcL 0-0.2 high Not Available [facility] ([facility]) [address], [place], [address], 07/25/2024 10:52:22 07/25/19 25 07/25/2024 CBC AUTO W DIFF basophil# 0.1 cell/ mcL 0.0-1. 0 Not Available [facility] ([facility]) [address] [facility], [place], [address], 07/25/2024 10:52:22 07/25/19 25 07/25/2024 CBC AUTO W DIFF immature gramulocytes # 0.03 K/uL Not Available [facility] ([facility]) [address] [facility], [place], [address], 07/25/2024 10:52:22 07/25/19 25 07/25/2024 CBC AUTO W DIFF nucleated red blood cells # 0.00 K/uL Not Available [facility] ([facility]) [address] [facility], [place], [address], 07/25/2024 10:52:22 07/25/19 25 07/25/2024 CBC AUTO W DIFF manual differential NO Not Available [facility] ([facility]) [address] , [place], [address], 07/25/2024 10:52:22 07/25/19 25 07/25/2024 COMP METAB OLIC PANEL sodium 137 mmol/ L 136-14 5 Not Available [facility] ([facility]) [address] , [place], [address], 07/25/2024 10:58:53 07/25/19 25 07/25/2024 COMP METAB OLIC PANEL potassium 3.7 mmol/ L 3.6-5. 0 Not Available [facility] ([facility]) [address] , [place], [address], 07/25/2024 10:58:53 07/25/19 25 07/25/2024 COMP METAB OLIC PANEL chloride 100 mmol/ L 98-107 Not Available [facility] ([facility]) [address] , [place], [address], 07/25/2024 10:58:53 07/25/19 25 07/25/2024 COMP METAB OLIC PANEL carbon dioxide 25.4 mmol/ L 21.0-3 2.0 Not Available [facility] ([facility]) [address] , [place], [address], 07/25/2024 10:58:53 07/25/19 25 07/25/2024 COMP METAB OLIC PANEL anion gap 15.3 Not Available [facility] ([facility]) [address] , [place], [address], 07/25/2024 10:58:53 07/25/19 25 07/25/2024 COMP METAB OLIC PANEL glucose 169 mg/dL 70-120 high Not Available [facility] ([facility]) [address] , [place], [address], 07/25/2024 10:58:53 07/25/19 25 07/25/2024 COMP METAB OLIC PANEL BUN 17 mg/dL 7-18 Not Available [facility] ([facility]) [address], [place], [address], 07/25/2024 10:58:53 07/25/19 25 07/25/2024 COMP METAB OLIC PANEL creatinine 0.9 mg/dL 0.6-1. 3 Not Available [facility] ([facility]) [address], [place], [address], 07/25/2024 10:58:53 07/25/19 25 07/25/2024 COMP METAB [...] albrecht ing kiney funct ion. Not Available [facility] ([facility]) [address] , [place], [address], 07/25/2024 10:58:53 07/25/19 25 07/25/2024 COMP METAB OLIC PANEL total protein 7.1 g/dL 6.4-8. 2 Not Available [facility] ([facility]) [address] , [place], [address], 07/25/2024 10:58:53 07/25/19 25 07/25/2024 COMP METAB OLIC PANEL albumin 2.8 g/dL 3.4-5. 0 low Not Available [facility] ([facility]) [address] , [place], [address], 07/25/2024 10:58:53 07/25/19 25 07/25/2024 COMP METAB OLIC PANEL globulin 4.3 Not Available [facility] ([facility]) [address], [place], [address], 07/25/2024 10:58:53 07/25/19 25 07/25/2024 COMP METAB OLIC PANEL alb/glob ratio 0.7 0.7-2 Not Available [facility] ([facility]) [address], [place], [address], 07/25/2024 10:58:53 07/25/19 25 07/25/2024 COMP METAB OLIC PANEL calcium 9.0 mg/dL 8.5-10 .5 Not Available [facility] ([facility]) [address], [place], [address], 07/25/2024 10:58:53 07/25/19 25 07/25/2024 COMP METAB OLIC PANEL bilirubin total 0.60 mg/dL 0.10-1 .00 Not Available [facility] ([facility]) [address] [facility], [place], [address], 07/25/2024 10:58:53 07/25/19 25 07/25/2024 COMP METAB OLIC PANEL AST (SGOT) 33 U/L 0-37 Not Available [facility] ([facility]) [address], [place], [address], 07/25/2024 10:58:53 07/25/19 25 07/25/2024 COMP METAB OLIC PANEL ALT (SGPT) 20 U/L 0-65 Not Available [facility] ([facility]) [address], [place], [address], 07/25/2024 10:58:53 07/25/19 25 07/25/2024 COMP METAB OLIC PANEL alk phosphatase 224 U/L 46-116 high Not Available [facility] ([facility]) [address], [place], [address], 07/25/2024 10:58:53 07/25/19 25 07/25/2024 PT (PROT HROMB IN TIME) W INR prothrombin time 27.2 secon ds 9.3-11 .4 high Not Available [facility] ([facility]) [address] , [place], [address], 07/25/2024 11:01:05 07/25/19 25 07/25/2024 PT (PROT [...] Mecha nical Heart Valve s Not Available [facility] ([facility]) [address] , [place], [address], 07/25/2024 11:01:05 07/25/19 25 07/26/2024 CEA cea [...] t be inter prete d as absol [place] evide nce of the prese nce or absen ce of [facility]. Perfo rmed at: - [facility] [address] [facility], [place] [id number] D[address] tor: Tate staton PhD, Phone : [phone] Not Available [facility] ([facility]) [address] , [place], [address], 07/26/2024 08:13:00 08/11/19 25 08/10/2024 CBC AUTO W DIFF WBC 10.3 K/uL 4.0-10 .5 Not Available [facility] ([facility]) [address], [place], [address], 08/10/2024 10:33:28 08/11/19 25 08/10/2024 CBC AUTO W DIFF RBC 4.0 M/mm3 4.2-6. 4 low Not Available [facility] ([facility]) [address], [place], [address], 08/10/2024 10:33:28 08/11/19 25 08/10/2024 CBC AUTO W DIFF HGB 11.9 gm/dL 12.5-1 6.0 low Not Available [facility] ([facility]) [address], [place], [address], 08/10/2024 10:33:28 08/11/19 25 08/10/2024 CBC AUTO W DIFF HCT 36.4 % 37.0-4 7.0 low Not Available [facility] ([facility]) [address], [place], [address], 08/10/2024 10:33:28 08/11/19 25 08/10/2024 CBC AUTO W DIFF MCV 91.7 fL 78-100 Not Available [facility] ([facility]) [address], [place], [address], 08/10/2024 10:33:28 08/11/19 25 08/10/2024 CBC AUTO W DIFF MCH 30.0 pg 27-31 Not Available [facility] ([facility]) [address], [place], [address], 08/10/2024 10:33:28 08/11/19 25 08/10/2024 CBC AUTO W DIFF MCHC 32.7 g/dL 32-36 Not Available [facility] ([facility]) [address], [place], [address], 08/10/2024 10:33:28 08/11/19 25 08/10/2024 CBC AUTO W DIFF RDW 16.3 % 11.5-1 4.0 high Not Available [facility] ([facility]) [address] , [place], [address], 08/10/2024 10:33:28 08/11/19 25 08/10/2024 CBC AUTO W DIFF platelet count 227 K/uL 150-45 0 Not Available [facility] ([facility]) [address] , [place], [address], 08/10/2024 10:33:28 08/11/19 25 08/10/2024 CBC AUTO W DIFF MPV 9.6 fL 6-9.5 high Not Available [facility] ([facility]) [address] , [place], [address], 08/10/2024 10:33:28 08/11/19 25 08/10/2024 CBC AUTO W DIFF neutrophil% 71.2 % 43-65 high Not Available [facility] ([facility]) [address] , [place], [address], 08/10/2024 10:33:28 08/11/19 25 08/10/2024 CBC AUTO W DIFF lymphocyte% 12.6 % 20.5-4 5.5 low Not Available [facility] ([facility]) [address] , [place], [address], 08/10/2024 10:33:28 08/11/19 25 08/10/2024 CBC AUTO W DIFF monocyte% 6.6 % 5.5-11 .7 Not Available [facility] ([facility]) [address] [place], [address], 08/10/2024 10:33:28 08/11/19 25 08/10/2024 CBC AUTO W DIFF eosinophil% 8.6 % 0.9-2. 9 high Not Available [facility] ([facility]) [address] [place], [address], 08/10/2024 10:33:28 08/11/19 25 08/10/2024 CBC AUTO W DIFF basophil% 0.7 % 0.2-1. 0 Not Available [facility] ([facility]) [address], [place], [address], 08/10/2024 10:33:28 08/11/19 25 08/10/2024 CBC AUTO W DIFF immature granulocytes % 0.3 % 0.0-0. 8 Not Available [facility] ([facility]) [address] [facility], [place], [address], 08/10/2024 10:33:28 08/11/19 25 08/10/2024 CBC AUTO W DIFF nucleated red blood cells % 0.0 % Not Available [facility] ([facility]) [address] [facility], [place], [address], 08/10/2024 10:33:28 08/11/19 25 08/10/2024 CBC AUTO W DIFF neutrophil# 7.3 K/uL 2.2-4. 8 high Not Available [facility] ([facility]) [address] [facility], [place], [address], 08/10/2024 10:33:28 08/11/19 25 08/10/2024 CBC AUTO W DIFF lymphocyte# 1.3 cell/ mcL 1.3-2. 9 Not Available [facility] ([facility]) [address] [facility], [place], [address], 08/10/2024 10:33:28 08/11/19 25 08/10/2024 CBC AUTO W DIFF monocyte# 0.7 cell/ mcL 0.3-0. 8 Not Available [facility] ([facility]) [address] [facility], [place], [address], 08/10/2024 10:33:28 08/11/19 25 08/10/2024 CBC AUTO W DIFF eosinophil# 0.9 cell/ mcL 0-0.2 high Not Available [facility] ([facility]) [address] , [place], [address], 08/10/2024 10:33:28 08/11/19 25 08/10/2024 CBC AUTO W DIFF basophil# 0.1 cell/ mcL 0.0-1. 0 Not Available [facility] ([facility]) [address] , [place], [address], 08/10/2024 10:33:28 08/11/19 25 08/10/2024 CBC AUTO W DIFF immature gramulocytes # 0.03 K/uL Not Available [facility] ([facility]) [address], [place], [address], 08/10/2024 10:33:28 08/11/19 25 08/10/2024 CBC AUTO W DIFF nucleated red blood cells # 0.00 K/uL Not Available [facility] ([facility]) [address], [place], [address], 08/10/2024 10:33:28 08/11/19 25 08/10/2024 CBC AUTO W DIFF manual differential NO Not Available [facility] ([facility]) [address] , [place], [address], 08/10/2024 10:33:28 08/11/19 25 08/10/2024 COMP METAB OLIC PANEL sodium 140 mmol/ L 136-14 5 Not Available [facility] ([facility]) [address] [place], [address], 08/10/2024 10:56:34 08/11/19 25 08/10/2024 COMP METAB OLIC PANEL potassium 4.1 mmol/ L 3.6-5. 0 Not Available [facility] ([facility]) [address], [place], [address], 08/10/2024 10:56:34 08/11/19 25 08/10/2024 COMP METAB OLIC PANEL chloride 104 mmol/ L 98-107 Not Available [facility] ([facility]) [address], [place], [address], 08/10/2024 10:56:34 08/11/19 25 08/10/2024 COMP METAB OLIC PANEL carbon dioxide 22.7 mmol/ L 21.0-3 2.0 Not Available [facility] ([facility]) [address] , [place], [address], 08/10/2024 10:56:34 08/11/19 25 08/10/2024 COMP METAB OLIC PANEL anion gap 17.4 Not Available [facility] ([facility]) [address] , [place], [address], 08/10/2024 10:56:34 08/11/19 25 08/10/2024 COMP METAB OLIC PANEL glucose 180 mg/dL 70-120 high Not Available [facility] ([facility]) [address] , [place], [address], 08/10/2024 10:56:34 08/11/19 25 08/10/2024 COMP METAB OLIC PANEL BUN 13 mg/dL 7-18 Not Available [facility] ([facility]) [address] , [place], [address], 08/10/2024 10:56:34 08/11/19 25 08/10/2024 COMP METAB OLIC PANEL creatinine 1.05 mg/dL 0.6-1. 3 Not Available [facility] ([facility]) [address] , [place], [address], 08/10/2024 10:56:34 08/11/19 25 08/10/2024 COMP METAB [...] albrecht ing kiney funct ion. Not Available [facility] ([facility]) [address] , [place], [address], 08/10/2024 10:56:34 08/11/19 25 08/10/2024 COMP METAB OLIC PANEL total protein 6.9 g/dL 6.4-8. 2 Not Available [facility] ([facility]) [address], [place], [address], 08/10/2024 10:56:34 08/11/19 25 08/10/2024 COMP METAB OLIC PANEL albumin 4.3 g/dL 3.4-5. 0 Not Available [facility] ([facility]) [address], [place], [address], 08/10/2024 10:56:34 08/11/19 25 08/10/2024 COMP METAB OLIC PANEL globulin 2.6 Not Available [facility] ([facility]) [address], [place], [address], 08/10/2024 10:56:34 08/11/19 25 08/10/2024 COMP METAB OLIC PANEL alb/glob ratio 1.7 0.7-2 Not Available [facility] ([facility]) [address], [place], [address], 08/10/2024 10:56:34 08/11/19 25 08/10/2024 COMP METAB OLIC PANEL calcium 8.9 mg/dL 8.5-10 .5 Not Available [facility] ([facility]) [address], [place], [address], 08/10/2024 10:56:34 08/11/19 25 08/10/2024 COMP METAB OLIC PANEL bilirubin total 0.6 mg/dL 0.10-1 .00 Not Available [facility] ([facility]) [address] , [place], [address], 08/10/2024 10:56:34 08/11/19 25 08/10/2024 COMP METAB OLIC PANEL AST (SGOT) 40 U/L 0-37 high Not Available [facility] ([facility]) [address], [place], [address], 08/10/2024 10:56:34 08/11/19 25 08/10/2024 COMP METAB OLIC PANEL ALT (SGPT) 23 U/L 0-65 Not Available [facility] ([facility]) [address], [place], [address], 08/10/2024 10:56:34 08/11/19 25 08/10/2024 COMP METAB OLIC PANEL alk phosphatase 234 U/L 46-116 high Not Available [facility] ([facility]) [address], [place], [address], 08/10/2024 10:56:34 08/11/19 25 08/10/2024 MAGNE SIUM magnesium 2.1 mg/dL 1.8-2. 4 Not Available [facility] ([facility]) [address], [place], [address], 08/10/2024 10:57:38 08/11/19 25 08/10/2024 PT (PROT HROMB IN TIME) W INR prothrombin time 36.2 secon ds 9.3-11 .4 high Not Available [facility] ([facility]) [address], [place], [address], 08/10/2024 10:58:45 08/11/19 25 08/10/2024 PT (PROT [...] Mecha nical Heart Valve s Not Available [facility] ([facility]) [address] , [place], [address], 08/10/2024 10:58:45 08/26/19 25 08/25/2024 COMP METAB OLIC PANEL sodium 137 mmol/ L 136-14 5 Not Available [facility] ([facility]) [address] , [place], [address], 08/25/2024 09:39:00 08/26/19 25 08/25/2024 COMP METAB OLIC PANEL potassium 4.1 mmol/ L 3.6-5. 0 Not Available [facility] ([facility]) [address] [place], [address], 08/25/2024 09:39:00 08/26/19 25 08/25/2024 COMP METAB OLIC PANEL chloride 101 mmol/ L 98-107 Not Available [facility] ([facility]) [address] [place], [address], 08/25/2024 09:39:00 08/26/19 25 08/25/2024 COMP METAB OLIC PANEL carbon dioxide 23.8 mmol/ L 21.0-3 2.0 Not Available [facility] ([facility]) [address] [place], [address], 08/25/2024 09:39:00 08/26/19 25 08/25/2024 COMP METAB OLIC PANEL anion gap 16.3 Not Available [facility] ([facility]) [address] [place], [address], 08/25/2024 09:39:00 08/26/1908/25/2024 COMP METAB OLIC PANEL glucose 169 mg/dL 70-120 high Not Available [facility] ([facility]) [address] , [place], [address], 08/25/2024 09:39:00 08/26/1908/25/2024 COMP METAB OLIC PANEL BUN 17 mg/dL 7-18 Not Available [facility] ([facility]) [address] , [place], [address], 08/25/2024 09:39:00 08/26/1908/25/2024 COMP METAB OLIC PANEL creatinine 1.5 mg/dL 0.6-1. 3 high Not Available [facility] ([facility]) [address] , [place], [address], 08/25/2024 09:39:00 08/26/1908/25/2024 COMP METAB OLIC PANEL [...] albrecht ing kiney funct ion. Not Available [facility] ([facility]) [address] , [place], [address], 08/25/2024 09:39:00 08/26/1908/25/2024 COMP METAB OLIC PANEL osmolality (calculated) 291 mOsm/ kg 275-30 1 OSMOL ALITY IS A CALCU LATIO N UTILI ZING THE SERUM /PLAS MA SODIU M, GLUCO SE AND UREA NITRO GEN (BUN) LEVEL S. FOR THE MOST ACCUR ATE RESUL T A MEASU RED SERUM OSMOL ALITY IS HAYDER PALM. Not Available [facility] ([facility]) [address], [place], [address], 08/25/2024 09:39:00 08/26/19 25 08/25/2024 COMP METAB OLIC PANEL total protein 7.2 g/dL 6.4-8. 2 Not Available [facility] ([facility]) [address], [place], [address], 08/25/2024 09:39:00 08/26/19 25 08/25/2024 COMP METAB OLIC PANEL albumin 2.9 g/dL 3.4-5. 0 low Not Available [facility] ([facility]) [address], [place], [address], 08/25/2024 09:39:00 08/26/19 25 08/25/2024 COMP METAB OLIC PANEL globulin 4.3 Not Available [facility] ([facility]) [address], [place], [address], 08/25/2024 09:39:00 08/26/1908/25/2024 COMP METAB OLIC PANEL alb/glob ratio 0.7 0.7-2 Not Available [facility] ([facility]) [address] , [place], [address], 08/25/2024 09:39:00 08/26/19 25 08/25/2024 COMP METAB OLIC PANEL calcium 8.9 mg/dL 8.5-10 .5 Not Available [facility] ([facility]) [address], [place], [address], 08/25/2024 09:39:00 08/26/19 25 08/25/2024 COMP METAB OLIC PANEL bilirubin total 0.50 mg/dL 0.10-1 .00 Not Available [facility] ([facility]) [address], [place], [address], 08/25/2024 09:39:00 08/26/19 25 08/25/2024 COMP METAB OLIC PANEL AST (SGOT) 18 U/L 0-37 Not Available [facility] ([facility]) [address] , [place], [address], 08/25/2024 09:39:00 08/26/19 25 08/25/2024 COMP METAB OLIC PANEL ALT (SGPT) 16 U/L 0-65 Not Available [facility] ([facility]) [address] , [place], [address], 08/25/2024 09:39:00 08/26/19 25 08/25/2024 COMP METAB OLIC PANEL alk phosphatase 218 U/L 46-116 high Not Available [facility] ([facility]) [address], [place], [address], 08/25/2024 09:39:00 08/26/19 25 08/25/2024 MAGNE SIUM magnesium 1.8 mg/dL 1.8-2. 4 Not Available [facility] ([facility]) [address], [place], [address], 08/25/2024 09:39:02 08/26/19 25 08/25/2024 CBC AUTO W DIFF WBC 3.5 K/uL 4.0-10 .5 low Not Available [facility] ([facility]) [address] , [place], [address], 08/25/2024 09:46:31 08/26/19 25 08/25/2024 CBC AUTO W DIFF RBC 3.9 M/mm3 4.2-6. 4 low Not Available [facility] ([facility]) [address], [place], [address], 08/25/2024 09:46:31 08/26/19 25 08/25/2024 CBC AUTO W DIFF HGB 11.4 gm/dL 12.5-1 6.0 low Not Available [facility] ([facility]) [address], [place], [address], 08/25/2024 09:46:31 08/26/19 25 08/25/2024 CBC AUTO W DIFF HCT 34.6 % 37.0-4 7.0 low Not Available [facility] ([facility]) [address], [place], [address], 08/25/2024 09:46:31 08/26/19 25 08/25/2024 CBC AUTO W DIFF MCV 88.7 fL 78-100 Not Available [facility] ([facility]) [address], [place], [address], 08/25/2024 09:46:31 08/26/19 25 08/25/2024 CBC AUTO W DIFF MCH 29.2 pg 27-31 Not Available [facility] ([facility]) [address], [place], [address], 08/25/2024 09:46:31 08/26/19 25 08/25/2024 CBC AUTO W DIFF MCHC 32.9 g/dL 32-36 Not Available [facility] ([facility]) [address], [place], [address], 08/25/2024 09:46:31 08/26/19 25 08/25/2024 CBC AUTO W DIFF RDW 15.6 % 11.5-1 4.0 high Not Available [facility] ([facility]) [address], [place], [address], 08/25/2024 09:46:31 08/26/19 25 08/25/2024 CBC AUTO W DIFF platelet count 295 K/uL 150-45 0 Not Available [facility] ([facility]) [address], [place], [address], 08/25/2024 09:46:31 08/26/19 25 08/25/2024 CBC AUTO W DIFF MPV 9.0 fL 6-9.5 Not Available [facility] ([facility]) [address] [place], [address], 08/25/2024 09:46:31 08/26/19 25 08/25/2024 CBC AUTO W DIFF neutrophil% 39.6 % 43-65 low Not Available [facility] ([facility]) [address] [place], [address], 08/25/2024 09:46:31 08/26/19 25 08/25/2024 CBC AUTO W DIFF lymphocyte% 41.8 % 20.5-4 5.5 Not Available [facility] ([facility]) [address] [place], [address], 08/25/2024 09:46:31 08/26/19 25 08/25/2024 CBC AUTO W DIFF monocyte% 13.4 % 5.5-11 .7 high Not Available [facility] ([facility]) [address] [place], [address], 08/25/2024 09:46:31 08/26/19 25 08/25/2024 CBC AUTO W DIFF eosinophil% 3.7 % 0.9-2. 9 high Not Available [facility] ([facility]) [address] [place], [address], 08/25/2024 09:46:31 08/26/19 25 08/25/2024 CBC AUTO W DIFF basophil% 0.9 % 0.2-1. 0 Not Available [facility] ([facility]) [address] [place], [address], 08/25/2024 09:46:31 08/26/19 25 08/25/2024 CBC AUTO W DIFF immature granulocytes % 0.6 % 0.0-0. 8 Not Available [facility] ([facility]) [address] [place], [address], 08/25/2024 09:46:31 08/26/19 25 08/25/2024 CBC AUTO W DIFF nucleated red blood cells % 0.0 % Not Available [facility] ([facility]) [address] [facility], [place], [address], 08/25/2024 09:46:31 08/26/19 25 08/25/2024 CBC AUTO W DIFF neutrophil# 1.4 K/uL 2.2-4. 8 low Not Available [facility] ([facility]) [address] [facility], [place], [address], 08/25/2024 09:46:31 08/26/19 25 08/25/2024 CBC AUTO W DIFF lymphocyte# 1.5 cell/ mcL 1.3-2. 9 Not Available [facility] ([facility]) [address] [facility], [place], [address], 08/25/2024 09:46:31 08/26/19 25 08/25/2024 CBC AUTO W DIFF monocyte# 0.5 cell/ mcL 0.3-0. 8 Not Available [facility] ([facility]) [address] [facility], [place], [address], 08/25/2024 09:46:31 08/26/19 25 08/25/2024 CBC AUTO W DIFF eosinophil# 0.1 cell/ mcL 0-0.2 Not Available [facility] ([facility]) [address] [facility], [place], [address], 08/25/2024 09:46:31 08/26/19 25 08/25/2024 CBC AUTO W DIFF basophil# 0.0 cell/ mcL 0.0-1. 0 Not Available [facility] ([facility]) [address] [facility], [place], [address], 08/25/2024 09:46:31 08/26/19 25 08/25/2024 CBC AUTO W DIFF immature gramulocytes # 0.02 K/uL Not Available [place] [facility] ([facility]) [address] , [place], [address], 08/25/2024 09:46:31 08/26/19 25 08/25/2024 CBC AUTO W DIFF nucleated red blood cells # 0.00 K/uL Not Available [facility] ([facility]) [address] , [place], [address], 08/25/2024 09:46:31 08/26/19 25 08/25/2024 CBC AUTO W DIFF manual differential NO Not Available [facility] ([facility]) [address] , [place], [address], 08/25/2024 09:46:31 08/26/19 25 08/25/2024 PT (PROT HROMB IN TIME) W INR prothrombin time 77.1 secon ds 9.3-11 .4 critical high Not Available [facility] ([facility]) [address] , [place], [address], 08/25/2024 10:02:40 08/26/19 25 08/25/2024 PT (PROT [...] Mecha nical Heart Valve s Not Available [facility] ([facility]) [address] , [place], [address], 08/25/2024 10:02:40 09/03/19 25 09/02/2024 COMP METAB OLIC PANEL sodium 131 mmol/ L 136-14 5 low Not Available [facility] ([facility]) [address], [place], [address], 09/02/2024 14:45:24 09/03/19 25 09/02/2024 COMP METAB OLIC PANEL potassium 4.0 mmol/ L 3.6-5. 0 Not Available [facility] ([facility]) [address] , [place], [address], 09/02/2024 14:45:24 09/03/19 25 09/02/2024 COMP METAB OLIC PANEL chloride 99 mmol/ L 98-107 Not Available [facility] ([facility]) [address] , [place], [address], 09/02/2024 14:45:24 09/03/19 25 09/02/2024 COMP METAB OLIC PANEL carbon dioxide 18.6 mmol/ L 21.0-3 2.0 low Not Available [facility] ([facility]) [address] , [place], [address], 09/02/2024 14:45:24 09/03/19 25 09/02/2024 COMP METAB OLIC PANEL anion gap 17.4 Not Available [facility] ([facility]) [address] , [place], [address], 09/02/2024 14:45:24 09/03/19 25 09/02/2024 COMP METAB OLIC PANEL glucose 145 mg/dL 70-120 high Not Available [facility] ([facility]) [address] , [place], [address], 09/02/2024 14:45:24 09/03/19 25 09/02/2024 COMP METAB OLIC PANEL BUN 36 mg/dL 7-18 high Not Available [facility] ([facility]) [address] [place], [address], 09/02/2024 14:45:24 09/03/19 25 09/02/2024 COMP METAB OLIC PANEL creatinine 1.5 mg/dL 0.6-1. 3 high Not Available [facility] ([facility]) [address] , [place], [address], 09/02/2024 14:45:24 09/03/19 25 09/02/2024 COMP METAB [...] albrecht ing kiney funct ion. Not Available [facility] ([facility]) [address] , [place], [address], 09/02/2024 14:45:24 09/03/19 25 09/02/2024 COMP METAB OLIC PANEL osmolality (calculated) 284 mOsm/ kg 275-30 1 OSMOL ALITY IS A CALCU LATIO N UTILI ZING THE SERUM /PLAS MA SODIU M, GLUCO SE AND UREA NITRO GEN (BUN) LEVEL S. FOR THE MOST ACCUR ATE RESUL T A MEASU RED SERUM OSMOL ALITY IS SUGGE STED. Not Available [facility] ([facility]) [address] , [place], [address], 09/02/2024 14:45:24 09/03/19 25 09/02/2024 COMP METAB OLIC PANEL total protein 5.9 g/dL 6.4-8. 2 low Not Available [facility] ([facility]) [address] , [place], [address], 09/02/2024 14:45:24 09/03/19 25 09/02/2024 COMP METAB OLIC PANEL albumin 2.1 g/dL 3.4-5. 0 low Not Available [facility] ([facility]) [address], [place], [address], 09/02/2024 14:45:24 09/03/19 25 09/02/2024 COMP METAB OLIC PANEL globulin 3.8 Not Available [facility] ([facility]) [address], [place], [address], 09/02/2024 14:45:24 09/03/19 25 09/02/2024 COMP METAB OLIC PANEL alb/glob ratio 0.6 0.7-2 low Not Available [facility] ([facility]) [address], [place], [address], 09/02/2024 14:45:24 09/03/19 25 09/02/2024 COMP METAB OLIC PANEL calcium 8.1 mg/dL 8.5-10 .5 low Not Available [facility] ([facility]) [address] , [place], [address], 09/02/2024 14:45:24 09/03/19 25 09/02/2024 COMP METAB OLIC PANEL bilirubin total 1.10 mg/dL 0.10-1 .00 high Not Available [facility] ([facility]) [address] , [place], [address], 09/02/2024 14:45:24 09/03/19 25 09/02/2024 COMP METAB OLIC PANEL AST (SGOT) 13 U/L 0-37 Not Available [facility] ([facility]) [address] , [place], [address], 09/02/2024 14:45:24 09/03/19 25 09/02/2024 COMP METAB OLIC PANEL ALT (SGPT) 13 U/L 0-65 Not Available [facility] ([facility]) [address] , [place], [address], 09/02/2024 14:45:24 09/03/19 25 09/02/2024 COMP METAB OLIC PANEL alk phosphatase 188 U/L 46-116 high Not Available [facility] ([facility]) [address], [place], [address], 09/02/2024 14:45:24 09/03/19 25 09/02/2024 CBC AUTO W DIFF WBC 1.2 K/uL 4.0-10 .5 critical low Not Available [facility] ([facility]) [address], [place], [address], 09/02/2024 16:09:44 09/03/19 25 09/02/2024 CBC AUTO W DIFF RBC 3.4 M/mm3 4.2-6. 4 low Not Available [facility] ([facility]) [address] , [place], [address], 09/02/2024 16:09:44 09/03/19 25 09/02/2024 CBC AUTO W DIFF HGB 9.6 gm/dL 12.5-1 6.0 low Not Available [facility] ([facility]) [address] , [place], [address], 09/02/2024 16:09:44 09/03/19 25 09/02/2024 CBC AUTO W DIFF HCT 28.7 % 37.0-4 7.0 low Not Available [facility] ([facility]) [address] , [place], [address], 09/02/2024 16:09:44 09/03/19 25 09/02/2024 CBC AUTO W DIFF MCV 85.4 fL 78-100 Not Available [facility] ([facility]) [address] , [place], [address], 09/02/2024 16:09:44 09/03/19 25 09/02/2024 CBC AUTO W DIFF MCH 28.6 pg 27-31 Not Available [facility] ([facility]) [address] , [place], [address], 09/02/2024 16:09:44 09/03/19 25 09/02/2024 CBC AUTO W DIFF MCHC 33.4 g/dL 32-36 Not Available [facility] ([facility]) [address], [place], [address], 09/02/2024 16:09:44 09/03/19 25 09/02/2024 CBC AUTO W DIFF RDW 15.9 % 11.5-1 4.0 high Not Available [facility] ([facility]) [address] , [place], [address], 09/02/2024 16:09:44 09/03/19 25 09/02/2024 CBC AUTO W DIFF platelet count 213 K/uL 150-45 0 Not Available [facility] ([facility]) [address] , [place], [address], 09/02/2024 16:09:44 09/03/19 25 09/02/2024 CBC AUTO W DIFF MPV 9.6 fL 6-9.5 high Not Available [facility] ([facility]) [address] [place], [address], 09/02/2024 16:09:44 09/03/19 25 09/02/2024 CBC AUTO W DIFF neutrophil% 57.7 % 43-65 Not Available [facility] ([facility]) [address] [place], [address], 09/02/2024 16:09:44 09/03/19 25 09/02/2024 CBC AUTO W DIFF lymphocyte% 25.4 % 20.5-4 5.5 Not Available [facility] ([facility]) [address] [place], [address], 09/02/2024 16:09:44 09/03/19 25 09/02/2024 CBC AUTO W DIFF monocyte% 15.3 % 5.5-11 .7 high Not Available [facility] ([facility]) [address] , [place], [address], 09/02/2024 16:09:44 09/03/19 25 09/02/2024 CBC AUTO W DIFF eosinophil% 0.0 % 0.9-2. 9 low Not Available [facility] ([facility]) [address], [place], [address], 09/02/2024 16:09:44 09/03/19 25 09/02/2024 CBC AUTO W DIFF basophil% 0.8 % 0.2-1. 0 Not Available [facility] ([facility]) [address], [place], [address], 09/02/2024 16:09:44 09/03/19 25 09/02/2024 CBC AUTO W DIFF immature granulocytes % 0.8 % 0.0-0. 8 Not Available [facility] ([facility]) [address], [place], [address], 09/02/2024 16:09:44 09/03/19 25 09/02/2024 CBC AUTO W DIFF nucleated red blood cells % 0.0 % Not Available [facility] ([facility]) [address], [place], [address], 09/02/2024 16:09:44 09/03/19 25 09/02/2024 CBC AUTO W DIFF neutrophil# 0.7 K/uL 2.2-4. 8 low Not Available [facility] ([facility]) [address], [place], [address], 09/02/2024 16:09:44 09/03/19 25 09/02/2024 CBC AUTO W DIFF lymphocyte# 0.3 cell/ mcL 1.3-2. 9 low Not Available [facility] ([facility]) [address] [place], [address], 09/02/2024 16:09:44 09/03/19 25 09/02/2024 CBC AUTO W DIFF monocyte# 0.2 cell/ mcL 0.3-0. 8 low Not Available [facility] ([facility]) [address], [place], [address], 09/02/2024 16:09:44 09/03/19 25 09/02/2024 CBC AUTO W DIFF eosinophil# 0.0 cell/ mcL 0-0.2 Not Available [facility] ([facility]) [address], [place], [address], 09/02/2024 16:09:44 09/03/19 25 09/02/2024 CBC AUTO W DIFF basophil# 0.0 cell/ mcL 0.0-1. 0 Not Available [facility] ([facility]) [address], [place], [address], 09/02/2024 16:09:44 09/03/19 25 09/02/2024 CBC AUTO W DIFF immature gramulocytes # 0.01 K/uL Not Available [facility] ([facility]) [address] [facility], [place], [address], 09/02/2024 16:09:44 09/03/19 25 09/02/2024 CBC AUTO W DIFF nucleated red blood cells # 0.00 K/uL Not Available [facility] ([facility]) [address] [facility], [place], [address], 09/02/2024 16:09:44 09/03/19 25 09/02/2024 CBC AUTO W DIFF manual differential YES Not Available [facility] ([facility]) [address], [place], [address], 09/02/2024 16:09:44 09/03/19 25 09/02/2024 CBC AUTO W DIFF segmented neutrophil 54 % 42-76 Not Available [facility] ([facility]) [address] , [place], [address], 09/02/2024 16:09:44 09/03/19 25 09/02/2024 CBC AUTO W DIFF band neutrophil 8 % 0-8 Not Available [facility] ([facility]) [address] , [place], [address], 09/02/2024 16:09:44 09/03/19 25 09/02/2024 CBC AUTO W DIFF lymphocyte 16 % 15-41 Not Available [facility] ([facility]) [address], [place], [address], 09/02/2024 16:09:44 09/03/19 25 09/02/2024 CBC AUTO W DIFF monocyte 20 % 2-9 high Not Available [facility] ([facility]) [address] , [place], [address], 09/02/2024 16:09:44 09/03/19 25 09/02/2024 CBC AUTO W DIFF eosinophil 2 % 0-3 Not Available [facility] ([facility]) [address] , [place], [address], 09/02/2024 16:09:44 09/03/19 25 09/02/2024 CBC AUTO W DIFF platelet estimate ADEQUA TE adequa te Not Available [facility] ([facility]) [address] , [place], [address], 09/02/2024 16:09:44 09/03/19 25 09/02/2024 CBC AUTO W DIFF platelet morphology NORMAL normal Not Available [facility] ([facility]) [address] , [place], [address], 09/02/2024 16:09:44 09/03/19 25 09/02/2024 CBC AUTO W DIFF RBC morphology NORMAL normal Not Available [facility] ([facility]) [address], [place], [address], 09/02/2024 16:09:44 07/28/19 25 07/28/2024 CT ABD pel w/ (IV [facility] [address] [place] [address] Phone: Fax: Name: VICKY MCMAHAN Exam Date: : [birth year] Age 78 years Gender : F Access ion: [id number] 2023 Physic jesus: HANNA PARKER ty: [facility] Facili ty HSV: Outpat ient Exam: CT ABD PEL W/ (IV ^ ORAL) CT ABDOME N PELVIS WITH IV CONTRA ST 025 2:46 PM [facility] INDICA TION: Female , 78 [...] gs compar e Februa ry 2023, 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 Legall y authen ticate d by VAMSHI HALL 0 07-28 15:46: 13 CC'ed Logic: Orderi ng Provid er: IDGNA LUGO Attend ing Provid er: DIGNA LUGO Referr ing Provid er: DIGNA LUGO Admitt ing Provid er: DIGNA taylor[address] [place] [address] - Physical Therapy [address] [place] [address], [place], [address], 07/29/2024 11:36:27 08/02/19 25 07/28/2024 CT, chest , w/ contr ast [facility] [address] [place] [address] Phone: Fax: Name: VICKY MCMAHAN Exam Date: : [birth year] Age 78 years Gender : F Access ion: [id number] 2023 Physic jesus: HANNA PARKER Facili ty: [facility] Facili ty HSV: Outpat ient Exam: CT [...] Thank you for referr VICKY Delgado to [facility]. Legall y authen ticate d by AVIS ALBA IN 07-28 15:46: 34 CC'ed Logic: Orderi ng Provid er: DIGNA LUGO Attend ing Provid er: DIGNA LUGO Referr ing Provid er: DIGNA LUGO Admitt ing Provid er: DIGNA LUGO [email or web address] [address] , [place], [address], 08/01/2024 10:49:34 Result Notes None recorded. Problems Name Problem SNOMED Code Status Onset Date Resolution Date Notes Provider Name and Address Organization Details Recorded Time Headache 38683437 Active 2024 Christine Farfan [facility], [place] - [facility] - [place] & [place] 5 10:27:12 Metastatic malignant neoplasm to liver 41312610 Active 2022 Ghassan Lieberman PA-C [address], [place], [address] , [place] [facility] [place] 3 14:27:25 Mass of colon 911670025 Active 2022 Ghassan iLeberman PA-C [address], [place], [address] , [place] [facility] [place] 3 14:27:30 Anemia 044202512 Active 2022 Ghassan Lieberman PA-C [address], [place], [address] , [place] [facility] [place] 3 14:27:36 Nausea and vomiting 85267668 Active 2022 Ghassan Lieberman PA-C [address], [place], [address] , [place] [facility] & [place] 3 14:27:46 Unintentional weight loss 776160512 Active 2022 Ghassan Lieberman PA-C [address], [place], [address] , [place] [facility] [place] 3 16:13:07 Night sweats 37730308 Active 2022 Ghassan Lieberman PA-C [address], [place], [address] , [place] [facility] [place] 3 16:13:12 Problem Notes None recorded. Procedures Surgical History Date Name Laterality Status Provider Name and Address Organization Details Recorded Time 04/29/20 23 Venipuncture completed Hanna Snider PA-C [address] , [place], [address], [place] [facility] & [place] 04/27/2023 15:05:29 04/15/20 23 Venipuncture [facility] & [place] 04/15/2023 15:24:55 hysterectomy completed Laurelesvin Hydecaio [place] - [facility] & [place] 03/11/2023 15:30:22 extraction of cataract completed Laurel Mary Ellencaio [place] - [facility] & [place] 03/11/2023 15:30:36 excision of colon completed Loree Tadeo [facility] & [place] 04/21/2023 11:32:07 Imaging Results Imaging Date Name Status LastModified by Organiz ation Details LastModified Time 07/28/2024 CT ABD pel w/ (IV completed [email or web address] [place] [address] - Physical Therapy [address], [place], [address], 07/29/2024 11:36:27 07/28/2024 CT, chest, w/ contrast completed [email or web address] [place] [address] Physical Therapy [address], [place], [address], 08/01/2024 10:49:34 Procedure Notes None recorded. Medical Equipment None Reported. Allergies Allergen ID Allergen Name Allergen Category Reaction Reaction Severity Criticality Documentation Date Start Date Code Code System Note Provider Name and Address Organization Details Recorded Time 76863 tetracycl ine medicatio n hives Not available high 02/19/2023 36889 RxNorm Brandy yusuf, [place] - [facility] - [place] 3 14:03:33 Medications Name [...] Updated DateTime 5 162.56 cm 36 kg/m2 69857.4 g 98 [degF] 97 % 97 % 98 /min 132 mm[Hg] 72 mm[Hg] Akilah Fuentes [facility] & [place] 5 10:42:43 Date Recorded Body height Body mass index (BMI) Body weight Body temperature Heart rate Oxygen saturation Oxygen saturation in Arterial blood by Pulse oximetry Systolic blood pressure Diastolic blood pressure Provider Name and Address Organization Details Last Updated DateTime 5 162.56 cm 35.2 kg/m2 82595.4 4 g 97.7 [degF] 60 /min 99 % 99 % 159 mm[Hg] 61 mm[Hg] Laurel Samuels [facility] & [place] 5 12:08:08 Date Recorded Body height Body mass index (BMI) Body weight Body temperature Oxygen saturation Oxygen saturation in Arterial blood by Pulse oximetry Heart rate Respiratory rate Systolic blood pressure Diastolic blood pressure Provider Name and Address Organization Details Last Updated DateTime 5 162.56 cm 36 kg/m2 12101.4 g 97 [degF] 90 % 90 % 57 /min 18 /min 143 mm[Hg] 68 mm[Hg] Laurel Lai [facility] & [place] 5 10:00:38 Date Recorded Body height Body mass index (BMI) Body weight Body temperature Oxygen saturation Oxygen saturation in Arterial blood by Pulse oximetry Heart rate Respiratory rate Systolic blood pressure Diastolic blood pressure Provider Name and Address Organization Details Last Updated DateTime 5 162.56 cm 35.2 kg/m2 35106.4 4 g 97.5 [degF] 98 % 98 % 20 /min 83 /min 140 mm[Hg] 68 mm[Hg] Laurel ELIAS [facility] & [place] 5 09:42:28 Date Recorded Body height Body temperature Oxygen saturation Oxygen saturation in Arterial blood by Pulse oximetry Heart rate Respiratory rate Systolic blood pressure Diastolic blood pressure Provider Name and Address Organization Details Last Updated DateTime 5 162.56 cm 97.2 [degF] 95 % 95 % 141 /min 20 /min 137 mm[Hg] 86 mm[Hg] Laurel [facility]T [facility] & [place] 5 12:09:03 Social History Question Answer Notes LastModified by [employer] Details LastModified Time Tobacco Smoking Status Never Smoker Brandy [facility] & [place] 02/19/2023 14:02:59 What Is Your Level Of Caffeine Consumption? None [email or web address] Information not available 02/19/2023 What Was The Date Of Your Most Recent Tobacco Screening? 11/23/2023 [email or web address] Information not available 11/23/2023 Has Tobacco Cessation Counseling Been Provided? No [email or web address] Information not available 07/13/2023 Sex: Unknown Functional Status Question Answer Note LastModified by [employer] Details LastModified Time Do you use any illicit or recreational drugs? No [email or web address] Information not available 02/19/2023 Do you or have you ever used any other forms of tobacco or nicotine? No Information not available 02/19/2023 What is your level of alcohol consumption? None [email or web address] Information not available 02/19/2023 Mental Status None recorded. Family History Nothing Reported. Medical History No medical history recorded. Gynecological HistoryNo gynecological history recorded. Obstetrics History GPAL:G 0 P 0 0 0 0 Immunizations Vaccine Type Date Status Note Provider Nam e and Address Organization Details Recorded Time pneumococcal polysaccharide PPV23 7 completed Stephanie Taiwo [facility] & [place] 12/21/2023 09:56:34 Past Encounters Encounter ID Performer Location Encounter Start Date Encounter Closed Date Diagnosis/Indication Diagnosis SNOMED-CT Code Diagnosis ICD10 Code Diagnosis Note [id number] Ghassan Lieberman PA-C [facility] [address] [facility] [address] [place] [address] 02/19/2023 13:50:39 02/19/2023 14:35:58 Metastatic malignant neoplasm to liver 75918748 C78.7 Mass of colon 310517854 R19.09 Anemia 274225972 D64.9 Nausea and vomiting 1693 2000 R11.2 Unintentio nal weight loss 404908288 R63.4 Night sweats 38202296 R6 1 [id number] Addy Gonzales MD [facility] General Surgery [address] [facility] [place] [address] 03/10/2023 13:05:53 03/10/2023 14:02:07 Mass of colon 659831185 R19.09 Ascending colon. Patient has had ongoing [...] and possibilit y of ostomy. Liver mass 378249415 R16 .0 [id number] Tomy King MD [facility] Oncology and Hematolog y [address] [facility] [address] [place] [address] 03/11/2023 14:55:42 03/11/2023 16:34:54 Malignant tumor of ascending colon 861062055 C18.2 CT scan of the abdomen and [...] tissue sampling. Metastatic malignant neoplasm to liver 96581507 C78.7 CT scan of the abdomen and [...] colon cancer. Will follow-up tissue biopsy. Nausea 692667142 R11.0 As needed Zofran and Phenergan prescribed . Pain due t o neoplastic disease 0896044480 9102 G89.3 Right upper quadrant pain secondary to liver metastasis . Patient currently taking Tylenol. Discussed as needed oxycodone to limit Tylenol exposure. Anemia 585117437 D64.9 Right-side d colon mass concerning for malignancy . Will assess for any signs of iron deficiency . Most recent hemoglobin at 8.0. Concern for blood loss from colon mass. Patient reports dark stools. Adopted 254715342 Z62.89 8 Patient is adopted and discussed hereditary gene panel. Patient does have family history of her son having bladder cancer. [id number] Tomy King MD [facility] Oncology and Hematolog y [address] [place] [address] 04/15/2023 14:08:30 04/15/2023 15:42:28 Malignant tumor of ascending colon 025690211 C18.2 CT scan of the abdomen and [...] 8.2 hematocrit 29.0. MCV 67.9. Platelet count 315436. Normal cell differenti al. Low serum folate [...] metastatic colorectal cancer. Discussed chemothera py with Yolyn Park based regimen with 5FU Leucovorin if KRAS wild type would also add Vectibix to therapy. Will follow-up. Patient returns on April 15, 2023. Will start chemothera py as soon as possible. Metastatic malignant neoplasm to liver 93596924 C78.7 CT scan of the abdomen and [...] Findings concerning for metastatic colon cancer. Nausea 742703238 R11.0 As needed Zofran and Phenergan prescribed . Pain due t o neoplastic disease 8728652182 9102 G89.3 Right upper quadrant pain secondary to liver metastasis . Patient currently taking Tylenol. Discussed as needed oxycodone to limit Tylenol exposure. Anemia 420432238 D64.9 Right-side d colon mass concerning for malignancy . Will assess for any signs of iron deficiency . Most recent hemoglobin at 8.0. Concern for blood loss from colon mass. Patient reports dark stools. Adopted 559367646 Z62.89 8 Patient is adopted and discussed hereditary gene panel. Patient does have family history of her son having bladder cancer. Will send [facility] hereditary panel. [id number] Addy Gonzales MD [facility] General Surgery [address] [facility] [place] [address] 04/21/2023 11:07:18 04/21/2023 11:47:40 Malignant tumor of ascending colon 294942751 C18.2 Patient has follow-up with Oncology, is debating if she wishes any further treatment at this point. I have recommende d continuing lifting restrictio ns for another 2 weeks, then can resume activity as tolerated. Patient can follow-up with me if she has ongoing issues or questions. [id number] Hanna Snider PA-C [facility] Oncology and Hematolog y [address] [place] [address] 04/29/2023 10:08:09 04/29/2023 10:08:41 Malignant tumor of ascending colon 248842558 C18.2 CT scan of the abdomen and [...] 8.2 hematocrit 29.0. MCV 67.9. Platelet count 800652. Normal cell differenti al. Low serum folate [...] metastatic colorectal cancer. Discussed chemothera py with Yolyn Park based regimen with 5FU Leucovorin if [...] improvemen t. Metastatic malignant neoplasm to liver 36340488 C78.7 CT scan of the abdomen and [...] Findings concerning for metastatic colon cancer. Nausea 457563888 R11.0 As needed Zofran and Phenergan prescribed . Pain due t o neoplastic disease 2930928663 9102 G89.3 Right upper quadrant pain secondary to liver metastasis . Patient currently taking Tylenol. Discussed as needed oxycodone to limit Tylenol exposure. Anemia 297211972 D64.9 Right-side d colon mass concerning for malignancy . Will assess for any signs of iron deficiency . Most recent hemoglobin at 8.0. Concern for blood loss from colon mass. Patient reports dark stools. Adopted [id number] Z62.89 8 Patient is adopted and discussed hereditary gene panel. Patient does have family history of her son having bladder cancer. [facility]. Antineopla stic chemotherapy regimen [id number] Z51.11 Cycle 1 5FU Leucovorin Vectibix on April 29, 2023. Hypomagnesemia 582150904 E83.42 Patient returns on April 29, 2023. Magnesium level is 1.7 today. Will give 1 g magnesium IV. Hypokalemia 12862570 E87 .6 Patient returns on April 29, 2023. Potassium is low at 2.9. Will send prescripti on for potassium 20 mEq daily. Will follow-up labs again next week. Loss of appetite 2997703 6 R63.0 Patient has had nausea and decreased appetite since her cancer diagnosis. She can not tolerate her nutritiona l drinks. She does take Phenergan with relief. She continues to lose weight. Will send prescripti on for Megace. [id number] Hanna Snider PA-C [facility] [address] [place] [address] 05/04/2023 09:35:22 05/04/2023 09:45:11 Malignant tumor of ascending colon [id number] C18.2 CT scan of the abdomen and [...] 8.2 hematocrit 29.0. MCV 67.9. Platelet count 473081. Normal cell differenti al. Low serum folate [...] metastatic colorectal cancer. Discussed chemothera py with [place] based regimen with 5FU Leucovorin if [...] has started on Megace. Will follow-up for [facility] t. Metastatic malignant neoplasm to liver 00510170 C78.7 CT scan of the abdomen and [...] Findings concerning for metastatic colon cancer. Nausea 058584798 R11.0 As needed Zofran and Phenergan prescribed . Pain due t o neoplastic disease [id number] 9102 G89.3 Right upper quadrant pain secondary to liver metastasis . Patient currently taking Tylenol. Discussed as needed oxycodone to limit Tylenol exposure. Anemia 606949988 D64.9 Right-side d colon mass concerning for malignancy . Will assess for any signs of iron deficiency . Most recent hemoglobin at 8.0. Concern for blood loss from colon mass. Patient reports dark stools. Adopted [id number] Z62.89 8 Patient is adopted and discussed hereditary gene panel. Patient does have family history of her son having bladder cancer. Will send [facility] hereditary panel. Antineopla stic chemotherapy regimen [id number] Z51.11 Cycle 1 5FU Leucovorin Vectibix on April 29, 2023. Cycle 2 5FU Leucovorin Vectibix on May 04, 2023. Hypomagnesemia 850228149 E83.42 Patient returns on April 29, 2023. Magnesium level is 1.7 today. Will give 1 g magnesium IV. Hypokalemia 55312300 E87 .6 Patient returns on April 29, 2023. Potassium is low at 2.9. Will send prescripti on for potassium 20 mEq daily. Will follow-up labs again next week. Loss of appetite 1068526 6 R63.0 Patient has had nausea and decreased appetite since her cancer diagnosis. She can not tolerate her nutritiona l drinks. She does take Phenergan with relief. She continues to lose weight. Will send prescripti on for Megace. [id number] Hanna Snider PA-C [facility] [address] [place] [address] 05/11/2023 09:04:44 05/11/2023 13:02:16 Malignant tumor of ascending colon 529237065 C18.2 CT scan of the abdomen and [...] 8.2 hematocrit 29.0. MCV 67.9. Platelet count 730408. Normal cell differenti al. Low serum folate [...] metastatic colorectal cancer. Discussed chemothera py with [place]olyn [place] based regimen with 5FU Leucovorin if [...] improvemen t. Metastatic malignant neoplasm to liver 49705958 C78.7 CT scan of the abdomen and [...] Findings concerning for metastatic colon cancer. Nausea 746671220 R11.0 As needed Zofran and Phenergan prescribed . Pain due t o neoplastic disease 7769245272 9102 G89.3 Right upper quadrant pain secondary to liver metastasis . Patient currently taking Tylenol. Discussed as needed oxycodone to limit Tylenol exposure. Anemia 003707204 D64.9 Right-side d colon mass concerning for malignancy . Will assess for any signs of iron deficiency . Most recent hemoglobin at 8.0. Concern for blood loss from colon mass. Patient reports dark stools. Adopted [id number] Z62.89 8 Patient is adopted and discussed hereditary gene panel. Patient does have family history of her son having bladder cancer. Will send [facility] hereditary panel. Antineopla stic chemotherapy regimen 317440252 Z51.11 Cycle 1 5FU Leucovorin Vectibix on April 29, 2023. Cycle 2 5FU Leucovorin Vectibix on May 04, 2023. Cycle 3 5FU Leucovorin Vectibix on May 11, 2023. Hypomagnesemia 285803737 E83.42 Patient returns on April 29, 2023. Magnesium level is 1.7 today. Will give 1 g magnesium IV. Hypokalemia 25261780 E87 .6 Patient returns on April 29, 2023. Potassium is low at 2.9. Will send prescripti on for potassium 20 mEq daily. Will follow-up labs again next week. Loss of appetite 3407782 6 R63.0 Patient has had nausea and decreased appetite since her cancer diagnosis. She can not tolerate her nutritiona l drinks. She does take Phenergan with relief. She continues to lose weight. Will send prescripti on for Megace. Acute conjunctivitis 537 60662 H10.32 Patient returns on May 11, 2023. She has had erythema, conjuntiva inflammati on, discharged and matted left eye. She has been using warm compresses . Will send prescripti on for eye drops for conjunctiv itis. Diarrhea 72366034 R19.7 She has had diarrhea since night. She has tried Imodium and Pepto. Discussed taking Lomotil instead. [id number] Addy Gonzales MD [facility] General Surgery [address] [facility] [address] [place] [address] 05/07/2023 13:50:57 05/07/2023 15:14:30 Malignant tumor of ascending colon 990016580 C18.2 I have scheduled the patient for venous port placement. informed consent was obtained. Risks of the procedure including bleeding, infection, catheter complicati ons and damage to surroundin g structures were discussed [id number] Hanna Snider PA-C [facility] [address] [place] [address] 06/02/2023 09:27:10 06/02/2023 10:20:16 Malignant tumor of ascending colon 773847495 C18.2 CT scan of the abdomen and [...] 8.2 hematocrit 29.0. MCV 67.9. Platelet count 316555. Normal cell differenti al. Low serum folate [...] adenocarci noma consistent with colon primary. Patient unfortstacey mcgovern with metastatic colorectal cancer. Discussed chemothera py with Yolyn Park based regimen with 5FU Leucovorin if [...] labs today. Metastatic malignant neoplasm to liver 56181371 C78.7 CT scan of the abdomen and [...] Findings concerning for metastatic colon cancer. Nausea 519247764 R11.0 As needed Zofran and Phenergan prescribed . Pain due t o neoplastic disease 4794707660 9102 G89.3 Right upper quadrant pain secondary to liver metastasis . Patient currently taking Tylenol. Discussed as needed oxycodone to limit Tylenol exposure. Anemia 921830179 D64.9 Right-side d colon mass concerning for malignancy . Will assess for any signs of iron deficiency . Most recent hemoglobin at 8.0. Concern for blood loss from colon mass. Patient reports dark stools. Adopted 987238188 Z62.89 8 Patient is adopted and discussed hereditary gene panel. Patient does have family history of her son having bladder cancer. Will send [facility] hereditary panel. Antineopla stic chemotherapy regimen 161146434 Z51.11 Cycle 1 5FU Leucovorin Vectibix on April 29, 2023. Cycle 2 5FU Leucovorin Vectibix on May 04, 2023. Cycle 3 5FU Leucovorin Vectibix on May 11, 2023. Hypomagnesemia 904845298 E83.42 Patient returns on April 29, 2023. Magnesium level is 1.7 today. Will give 1 g magnesium IV. Hypokalemia 54499467 E87 .6 Patient returns on April 29, 2023. Potassium is low at 2.9. Will send prescripti on for potassium 20 mEq daily. Will follow-up labs again next week. Loss of appetite 5588892 6 R63.0 Patient has had nausea and decreased appetite since her cancer diagnosis. She can not tolerate her nutritiona l drinks. She does take Phenergan with relief. She continues to lose weight. Will send prescripti on for Megace. Acute conjunctivitis 537 54885 H10.32 Patient returns on May 11, 2023. She has had erythema, conjuntiva inflammati on, discharged and matted left eye. She has been using warm compresses . Will send prescripti on for eye drops for conjunctiv itis. Diarrhea 72107318 R19.7 Diarrhea has resolved. Patient with recent C diff Deep venou s thrombosis 972316483 I82.409 Patient developed right lower extremity pain and edema. Venous duplex on May 28, 2023 with evidence of deep vein thrombosis . Started on Eliquis 5 mg 1 tab p.o. b.i.d.. Did not start with Eliquis starter pack due to recent bleeding. Patient had a DVT and a PE in 1990 after her hysterecto my. Will order hypercoagu lable panel today. Anxiety 74991803 F41.9 Patient has had increased anxiety. She is tearful and crying during her visit today due to all of her health problems. She does not want to take an antidepres melina at this time. Discussed low-dose Ativan. Muscle weakness 02778294 M62.81 Patient is feeling weak and is requesting a lift chair. Will see if insurance will cover. Discussed home health but patient declines at this time. [id number] Tomy King MD [facility] [address] [facility] [address] [place] [address] 06/08/2023 09:23:07 06/08/2023 11:39:14 Malignant tumor of ascending colon 435281937 C18.2 CT scan of the abdomen and [...] 8.2 hematocrit 29.0. MCV 67.9. Platelet count 259056. Normal cell differenti al. Low serum folate [...] labs today. Metastatic malignant neoplasm to liver 91848328 C78.7 CT scan of the abdomen and [...] Findings concerning for metastatic colon cancer. Nausea 129639010 R11.0 As needed Zofran and Phenergan prescribed . Pain due t o neoplastic disease 1425550315 9102 G89.3 Right upper quadrant pain secondary to liver metastasis . Patient currently taking Tylenol. Discussed as needed oxycodone to limit Tylenol exposure. Anemia 355865343 D64.9 Right-side d colon mass concerning for malignancy . Will assess for any signs of iron deficiency . Most recent hemoglobin at 8.0. Concern for blood loss from colon mass. Patient reports dark stools. Adopted 509723858 Z62.89 8 Patient is adopted and discussed hereditary gene panel. Patient does have family history of her son having bladder cancer. Will send [facility] hereditary panel. Antineopla stic chemotherapy regimen 372192336 Z51.11 Week 1 5FU Leucovorin Vectibix on [...] return for cycle 2 day 1 Hypomagnesemia 456631659 E83.42 Patient returns on April 29, 2023. Magnesium level is 1.7 today. Will give 1 g magnesium IV. Hypokalemia 56236262 E87 .6 Patient returns on April 29, 2023. Potassium is low at 2.9. Will send prescripti on for potassium 20 mEq daily. Will follow-up labs again next week. Loss of appetite 6421692 6 R63.0 Patient has had nausea and decreased appetite since her cancer diagnosis. She can not tolerate her nutritiona l drinks. She does take Phenergan with relief. She continues to lose weight. Will send prescripti on for Megace. Acute conjunctivitis 537 32652 H10.32 Patient returns on May 11, 2023. She has had erythema, conjuntiva inflammati on, discharged and matted left eye. She has been using warm compresses . Will send prescripti on for eye drops for conjunctiv itis.Will send in repeat prescripti on for eye drops. Diarrhea 07334157 R19.7 Diarrhea has resolved. Patient with recent C diff Deep venou s thrombosis 306072709 I82.409 Patient developed right lower extremity pain and edema.Veno us duplex on May 28, 2023 with evidence of deep vein thrombosis . Started on Eliquis 5 mg 1 tab p.o. b.i.d.. Did not start with Eliquis starter pack due to recent bleeding. Patient had a DVT and a PE in 1990 after her hysterecto my. Anxiety 79526069 F41.9 Patient has had increased anxiety. She is tearful and crying during her visit today due to all of her health problems. She does not want to take an antidepres melina at this time. Discussed low-dose Ativan. Improvemen t in mood overall on visit from June 08, 2023. [id number] Addy Gonzales MD [facility] General Surgery [address] [place] [address] 06/05/2023 10:23:30 06/05/2023 11:32:28 Malignant tumor of ascending colon 273890791 C18.2 Needs port placed, cannot do this [...] can save her the long drive in. [id number] Tomy King MD [facility] [address] [place] [address] 06/22/2023 10:06:43 06/22/2023 12:44:59 Malignant tumor of ascending colon 874324196 C18.2 CT scan of the abdomen and [...] 8.2 hematocrit 29.0. MCV 67.9. Platelet count 341610. Normal cell differenti al. Low serum folate [...] next month. Metastatic malignant neoplasm to liver 05028623 C78.7 CT scan of the abdomen and [...] Findings concerning for metastatic colon cancer. Nausea 719913177 R11.0 As needed Zofran and Phenergan prescribed . Pain due t o neoplastic disease 7075524001 9102 G89.3 Right upper quadrant pain secondary to liver metastasis . Patient currently taking Tylenol. Discussed as needed oxycodone to limit Tylenol exposure. Anemia 431099630 D64.9 Right-side d colon mass concerning for malignancy . Will assess for any signs of iron deficiency . Most recent hemoglobin at 8.0. Concern for blood loss from colon mass. Patient reports dark stools. Adopted 008173981 Z62.89 8 Patient is adopted and discussed hereditary gene panel. Patient does have family history of her son having bladder cancer. Will send [facility] hereditary panel. Antineopla stic chemotherapy regimen 390955640 Z51.11 Week 1 5FU Leucovorin Vectibix on [...] and Vectibix on July 06, 2023. Hypokalemia 36784719 E87 .6 Patient returns on April 29, 2023. Potassium is low at 2.9. Will send prescripti on for potassium 20 mEq daily. Will follow-up labs again next week. Loss of appetite 5114597 6 R63.0 Patient has had nausea and decreased appetite since her cancer diagnosis. She can not tolerate her nutritiona l drinks. She does take Phenergan with relief. She continues to lose weight. Will send prescripti on for Megace. Acute conjunctivitis 532 18409 H10.32 Patient returns on May 11, 2023. She has had erythema, conjuntiva inflammati on, discharged and matted left eye. She has been using warm compresses . Will send prescripti on for eye drops for conjunctiv itis.Will send in repeat prescripti on for eye drops. Diarrhea 10779035 R19.7 Diarrhea has resolved. Patient with recent C diff Deep venou s thrombosis 064574548 I82.409 Patient developed right lower extremity pain and edema.Veno us duplex on May 28, 2023 with evidence of deep vein thrombosis . Started on Eliquis 5 mg 1 tab p.o. b.i.d.. Did not start with Eliquis starter pack due to recent bleeding. Patient had a DVT and a PE in 1990 after her hysterecto my. Anxiety 69994990 F41.9 Patient has had increased anxiety. She is tearful and crying during her visit today due to all of her health problems. She does not want to take an antidepres melina at this time. Discussed low-dose Ativan. Improvemen t in mood overall on visit from June 08, 2023. [id number] Tomy King MD [facility] [address] [place] [address] 07/13/2023 09:25:11 07/13/2023 10:53:59 Malignant tumor of ascending colon 555164518 C18.2 CT scan of the abdomen and [...] 8.2 hematocrit 29.0. MCV 67.9. Platelet count 427489. Normal cell differenti al. Low serum folate [...] for now. Metastatic malignant neoplasm to liver 39404582 C78.7 CT scan of the abdomen and [...] Findings concerning for metastatic colon cancer. Nausea 802684469 R11.0 As needed Zofran and Phenergan prescribed . Pain due t o neoplastic disease 3762755028 9102 G89.3 Right upper quadrant pain secondary to liver metastasis . Patient currently taking Tylenol. Discussed as needed oxycodone to limit Tylenol exposure. Anemia 635539769 D64.9 Right-side d colon mass concerning for malignancy . Will assess for any signs of iron deficiency . Most recent hemoglobin at 8.0. Concern for blood loss from colon mass. Patient reports dark stools. Adopted 794305999 Z62.89 8 Patient is adopted and discussed hereditary gene panel. Patient does have family history of her son having bladder cancer. Will send [facility] hereditary panel. Antineopla stic chemotherapy regimen 168282121 Z51.11 Week 1 5FU Leucovorin Vectibix on April 29, 2023.Week 2 5FU Leucovorin Vectibix on May 04, 2023.Week 3 5FU Leucovorin Vectibix on May 11, 2023.Week 4 5FU Leucovorin and Vectibix on June 08, 2023.Day 29 of 5FU Leucovorin and Vectibix on June 22, 2023. Cycle 2 day 1 of 5FU Leucovorin and Vectibix on July 13, 2023. Hypokalemia 07561356 E87 .6 Patient returns on April 29, 2023. Potassium is low at 2.9. Will send prescripti on for potassium 20 mEq daily. Will follow-up labs again next week. Loss of appetite 7466289 6 R63.0 Patient has had nausea and decreased appetite since her cancer diagnosis. She can not tolerate her nutritiona l drinks. She does take Phenergan with relief. She continues to lose weight. Will send prescripti on for Megace. Acute conjunctivitis 537 25645 H10.32 Patient returns on May 11, 2023. She has had erythema, conjuntiva inflammati on, discharged and matted left eye. She has been using warm compresses . Will send prescripti on for eye drops for conjunctiv itis.Will send in repeat prescripti on for eye drops. Diarrhea 61153201 R19.7 Diarrhea has resolved. Patient with recent C diff Deep venou s thrombosis 463403104 I82.411 Patient developed right lower extremity pain and edema.Veno us duplex on May 28, 2023 with evidence of deep vein thrombosis . Started on Eliquis 5 mg 1 tab p.o. b.i.d.. Did not start with Eliquis starter pack due to recent bleeding. Patient had a DVT and a PE in 1990 after her hysterecto my. Anxiety 71248410 F41.9 Patient has had increased anxiety. She is tearful and crying during her visit today due to all of her health problems. She does not want to take an antidepres melina at this time. Discussed low-dose Ativan. Improvemen t in mood overall on visit from June 08, 2023. [id number] Hanna Snider PA-C [facility] [address] [place] [address] 07/27/2023 09:02:25 07/27/2023 10:25:44 Malignant tumor of ascending colon 587881910 C18.2 CT scan of the abdomen and [...] 8.2 hematocrit 29.0. MCV 67.9. Platelet count 054103. Normal cell differenti al. Low serum folate [...] Will follow-up Metastatic malignant neoplasm to liver 42836402 C78.7 CT scan of the abdomen and [...] Findings concerning for metastatic colon cancer. Nausea 329300096 R11.0 As needed Zofran and Phenergan prescribed . Pain due t o neoplastic disease 6084805926 9102 G89.3 Right upper quadrant pain secondary to liver metastasis . Patient currently taking Tylenol. Discussed as needed oxycodone to limit Tylenol exposure. Anemia 777853976 D64.9 Right-side d colon mass concerning for malignancy . Will assess for any signs of iron deficiency . Most recent hemoglobin at 8.0. Concern for blood loss from colon mass. Patient reports dark stools. Adopted 886495644 Z62.89 8 Patient is adopted and discussed hereditary gene panel. Patient does have family history of her son having bladder cancer. Will send [facility] hereditary panel. Antineopla stic chemotherapy regimen 076705735 Z51.11 Week 1 5FU Leucovorin Vectibix on [...] and Vectibix on July 27, 2023. Hypokalemia 66586097 E87 .6 Patient returns on April 29, 2023. Potassium is low at 2.9. Will send prescripti on for potassium 20 mEq daily. Will follow-up labs again next week. Loss of appetite 0083522 6 R63.0 Patient has had nausea and decreased appetite since her cancer diagnosis. She can not tolerate her nutritiona l drinks. She does take Phenergan with relief. She continues to lose weight. Will send prescripti on for Megace. Acute conjunctivitis 537 28387 H10.32 Patient returns on May 11, 2023. She has had erythema, conjuntiva inflammati on, discharged and matted left eye. She has been using warm compresses . Will send prescripti on for eye drops for conjunctiv itis.Will send in repeat prescripti on for eye drops. Diarrhea 64361100 R19.7 Diarrhea has resolved. Patient with recent C diff Deep venou s thrombosis 687510079 I82.409 Patient developed right lower extremity pain and edema.Veno us duplex on May 28, 2023 with evidence of deep vein thrombosis . Started on Eliquis 5 mg 1 tab p.o. b.i.d.. Did not start with Eliquis starter pack due to recent bleeding. Patient had a DVT and a PE in 1990 after her hysterecto my. Anxiety 62392871 F41.9 Patient has had increased anxiety. She is tearful and crying during her visit today due to all of her health problems. She does not want to take an antidepres melina at this time. Discussed low-dose Ativan. Improvemen t in mood overall on visit from June 08, 2023. [id number] Hanna Snider PA-C [facility] [address] [place] [address] 08/10/2023 09:01:37 08/10/2023 09:59:21 Malignant tumor of ascending colon 130328204 C18.2 CT scan of the abdomen and [...] 8.2 hematocrit 29.0. MCV 67.9. Platelet count 265348. Normal cell differenti al. Low serum folate [...] Will follow-up. Metastatic malignant neoplasm to liver 36252029 C78.7 CT scan of the abdomen and [...] Findings concerning for metastatic colon cancer. Nausea 928984330 R11.0 As needed Zofran and Phenergan prescribed . Pain due t o neoplastic disease 6962805605 9102 G89.3 Right upper quadrant pain secondary to liver metastasis . Patient currently taking Tylenol. Discussed as needed oxycodone to limit Tylenol exposure. Anemia 225438889 D64.9 Right-side d colon mass concerning for malignancy . Will assess for any signs of iron deficiency . Most recent hemoglobin at 8.0. Concern for blood loss from colon mass. Patient reports dark stools. Adopted 960479748 Z62.89 8 Patient is adopted and discussed hereditary gene panel. Patient does have family history of her son having bladder cancer. Will send [facility] hereditary panel. Antineopla stic chemotherapy regimen 308102598 Z51.11 Week 1 5FU Leucovorin Vectibix on [...] and Vectibix on August 10, 2023. Hypokalemia 03729461 E87 .6 Patient returns on April 29, 2023. Potassium is low at 2.9. Will send prescripti on for potassium 20 mEq daily. Will follow-up labs again next week. Loss of appetite 5418393 6 R63.0 Patient has had nausea and decreased appetite since her cancer diagnosis. She can not tolerate her nutritiona l drinks. She does take Phenergan with relief. She continues to lose weight. Will send prescripti on for Megace. Acute conjunctivitis 992 10142 H10.32 Patient returns on May 11, 2023. She has had erythema, conjuntiva inflammati on, discharged and matted left eye. She has been using warm compresses . Will send prescripti on for eye drops for conjunctiv itis.Will send in repeat prescripti on for eye drops. Diarrhea 72093886 R19.7 Diarrhea has resolved. Patient with recent C diff Deep venou s thrombosis 549114188 I82.409 Patient developed right lower extremity pain and edema.Veno us duplex on May 28, 2023 with evidence of deep vein thrombosis . Started on Eliquis 5 mg 1 tab p.o. b.i.d.. Did not start with Eliquis starter pack due to recent bleeding. Patient had a DVT and a PE in 1990 after her hysterecto my. Anxiety 89446743 F41.9 Patient has had increased anxiety. She is tearful and crying during her visit today due to all of her health problems. She does not want to take an antidepres melina at this time. Discussed low-dose Ativan. Improvemen t in mood overall on visit from June 08, 2023. [id number] Hanna Snider PA-C [facility] [address] [place] [address] 08/24/2023 09:22:37 08/24/2023 09:52:19 Malignant tumor of ascending colon 581101121 C18.2 CT scan of the abdomen and [...] 8.2 hematocrit 29.0. MCV 67.9. Platelet count 913300. Normal cell differenti al. Low serum folate [...] Will follow-up Metastatic malignant neoplasm to liver 89861998 C78.7 CT scan of the abdomen and [...] Findings concerning for metastatic colon cancer. Nausea 600683765 R11.0 As needed Zofran and Phenergan prescribed . Pain due t o neoplastic disease [id number] 9102 G89.3 Right upper quadrant pain secondary to liver metastasis . Patient currently taking Tylenol. Discussed as needed oxycodone to limit Tylenol exposure. Anemia 857929536 D64.9 Right-side d colon mass concerning for malignancy . Will assess for any signs of iron deficiency . Most recent hemoglobin at 8.0. Concern for blood loss from colon mass. Patient reports dark stools. Adopted [id number] Z62.89 8 Patient is adopted and discussed hereditary gene panel. Patient does have family history of her son having bladder cancer. Will send [facility] hereditary panel. Antineopla stic chemotherapy regimen 474734350 Z51.11 Week 1 5FU Leucovorin Vectibix on [...] and Vectibix on August 24, 2023. Hypokalemia 90492690 E87 .6 Patient returns on April 29, 2023. Potassium is low at 2.9. Will send prescripti on for potassium 20 mEq daily. Will follow-up labs again next week. Loss of appetite 2067277 6 R63.0 Patient has had nausea and decreased appetite since her cancer diagnosis. She can not tolerate her nutritiona l drinks. She does take Phenergan with relief. She continues to lose weight. Will send prescripti on for Megace. Acute conjunctivitis 537 64211 H10.32 Patient returns on May 11, 2023. She has had erythema, conjuntiva inflammati on, discharged and matted left eye. She has been using warm compresses . Will send prescripti on for eye drops for conjunctiv itis.Will send in repeat prescripti on for eye drops. Diarrhea 86355633 R19.7 Diarrhea has resolved. Patient with recent C diff Deep venou s thrombosis 957489611 I82.409 Patient developed right lower extremity pain and edema.Veno us duplex on May 28, 2023 with evidence of deep vein thrombosis . Started on Eliquis 5 mg 1 tab p.o. b.i.d.. Did not start with Eliquis starter pack due to recent bleeding. Patient had a DVT and a PE in 1990 after her hysterecto my. Anxiety 91936265 F41.9 Patient has had increased anxiety. She is tearful and crying during her visit today due to all of her health problems. She does not want to take an antidepres melina at this time. Discussed low-dose Ativan. Improvemen t in mood overall on visit from June 08, 2023. [id number] Hanna Snider PA-C [facility] [address] [place] [address] 09/07/2023 08:42:30 09/07/2023 09:21:28 Malignant tumor of ascending colon 058672599 C18.2 CT scan of the abdomen and [...] 8.2 hematocrit 29.0. MCV 67.9. Platelet count 500731. Normal cell differenti al. Low serum folate [...] Will follow-up. Metastatic malignant neoplasm to liver 88836136 C78.7 CT scan of the abdomen and [...] Findings concerning for metastatic colon cancer. Nausea 954810729 R11.0 As needed Zofran and Phenergan prescribed . Pain due t o neoplastic disease [id number] 9102 G89.3 Right upper quadrant pain secondary to liver metastasis . Patient currently taking Tylenol. Discussed as needed oxycodone to limit Tylenol exposure. Anemia 137530379 D64.9 Right-side d colon mass concerning for malignancy . Will assess for any signs of iron deficiency . Most recent hemoglobin at 8.0. Concern for blood loss from colon mass. Patient reports dark stools. Adopted 347302436 Z62.89 8 Patient is adopted and discussed hereditary gene panel. Patient does have family history of her son having bladder cancer. Will send [facility] hereditary panel. Antineopla stic chemotherapy regimen 855769411 Z51.11 Week 1 5FU Leucovorin Vectibix on [...] Vectibix today secondary to conjunctiv itis Hypokalemia 80776023 E87 .6 Patient returns on April 29, 2023. Potassium is low at 2.9. Will send prescripti on for potassium 20 mEq daily. Will follow-up labs again next week. Loss of appetite 3360673 6 R63.0 Patient has had nausea and decreased appetite since her cancer diagnosis. She can not tolerate her nutritiona l drinks. She does take Phenergan with relief. She continues to lose weight. Will send prescripti on for Megace. Acute conjunctivitis 537 41863 H10.32 Patient returns on May 11, 2023. She has had erythema, conjuntiva inflammati on, discharged and matted left eye. She has been using warm compresses . Will send prescripti on for eye drops for conjunctiv itis.Will send in repeat prescripti on for eye drops. Diarrhea 65645301 R19.7 Diarrhea has resolved. Patient with recent C diff Deep venou s thrombosis [id number] I82.409 Patient developed right lower extremity pain and edema.Veno us duplex on May 28, 2023 with evidence of deep vein thrombosis . Started on Eliquis 5 mg 1 tab p.o. b.i.d.. Did not start with Eliquis starter pack due to recent bleeding. Patient had a DVT and a PE in 1990 after her hysterecto my. Anxiety 15830275 F41.9 Patient has had increased anxiety. She is tearful and crying during her visit today due to all of her health problems. She does not want to take an antidepres melina at this time. Discussed low-dose Ativan. Improvemen t in mood overall on visit from June 08, 2023. [id number] Tomy King MD [facility] [address] [place] [address] 09/21/2023 09:41:41 09/21/2023 11:20:44 Malignant tumor of ascending colon 982377865 C18.2 CT scan of the abdomen and [...] 8.2 hematocrit 29.0. MCV 67.9. Platelet count 673487. Normal cell differenti al. Low serum folate [...] to improve. Metastatic malignant neoplasm to liver 57532475 C78.7 CT scan of the abdomen and [...] Findings concerning for metastatic colon cancer. Nausea 227214763 R11.0 As needed Zofran and Phenergan prescribed . Pain due t o neoplastic disease 3629714451 9102 G89.3 Right upper quadrant pain secondary to liver metastasis . Patient currently taking Tylenol. Discussed as needed oxycodone to limit Tylenol exposure. Anemia 143079570 D64.9 Right-side d colon mass concerning for malignancy . Will assess for any signs of iron deficiency . Most recent hemoglobin at 8.0. Concern for blood loss from colon mass. Patient reports dark stools. Adopted 074044114 Z62.89 8 Patient is adopted and discussed hereditary gene panel. Patient does have family history of her son having bladder cancer. Will send [facility] hereditary panel. Antineopla stic chemotherapy regimen 867569681 Z51.11 Week 1 5FU Leucovorin Vectibix on [...] dose held secondary to conjunctiv itis. Hypokalemia 53360577 E87 .6 Patient returns on April 29, 2023. Potassium is low at 2.9. Will send prescripti on for potassium 20 mEq daily. Will follow-up labs again next week. Loss of appetite 6472510 6 R63.0 Patient has had nausea and decreased appetite since her cancer diagnosis. She can not tolerate her nutritiona l drinks. She does take Phenergan with relief. She continues to lose weight. Will send prescripti on for Megace. Acute conjunctivitis 537 71595 H10.32 Patient returns on May 11, 2023. She has had erythema, conjuntiva inflammati on, discharged and matted left eye. She has been using warm compresses . Will send prescripti on for eye drops for conjunctiv itis.Will send in repeat prescripti on for eye drops. Diarrhea 09100826 R19.7 Diarrhea has resolved. Patient with recent C diff Deep venou s thrombosis 107599342 I82.409 Patient developed right lower extremity pain and edema.Veno us duplex on May 28, 2023 with evidence of deep vein thrombosis . Started on Eliquis 5 mg 1 tab p.o. b.i.d.. Did not start with Eliquis starter pack due to recent bleeding. Patient had a DVT and a PE in 1990 after her hysterecto my. Anxiety 06348170 F41.9 Patient has had increased anxiety. She is tearful and crying during her visit today due to all of her health problems. She does not want to take an antidepres melina at this time. Discussed low-dose Ativan. Improvemen t in mood overall on visit from June 08, 2023. [id number] Hanna Snider PA-C [facility] [address] [place] [address] 10/05/2023 09:19:08 10/05/2023 10:17:18 Malignant tumor of ascending colon 225144093 C18.2 CT scan of the abdomen and [...] 8.2 hematocrit 29.0. MCV 67.9. Platelet count 123845. Normal cell differenti al. Low serum folate [...] bilaterall y. Metastatic malignant neoplasm to liver 75169591 C78.7 CT scan of the abdomen and [...] Findings concerning for metastatic colon cancer. Nausea 977317405 R11.0 As needed Zofran and Phenergan prescribed . Pain due t o neoplastic disease 3042317665 9102 G89.3 Right upper quadrant pain secondary to liver metastasis . Patient currently taking Tylenol. Discussed as needed oxycodone to limit Tylenol exposure. Anemia 249225741 D64.9 Right-side d colon mass concerning for malignancy . Will assess for any signs of iron deficiency . Most recent hemoglobin at 8.0. Concern for blood loss from colon mass. Patient reports dark stools. Adopted 341046737 Z62.89 8 Patient is adopted and discussed hereditary gene panel. Patient does have family history of her son having bladder cancer. Will send [facility] hereditary panel. Antineopla stic chemotherapy regimen 718258240 Z51.11 Week 1 5FU Leucovorin Vectibix on [...] membranes of the eyes bilaterall y. Hypokalemia 27087707 E87 .6 Patient returns on April 29, 2023. Potassium is low at 2.9. Will send prescripti on for potassium 20 mEq daily. Will follow-up labs again next week. Loss of appetite 2511509 6 R63.0 Patient has had nausea and decreased appetite since her cancer diagnosis. She can not tolerate her nutritiona l drinks. She does take Phenergan with relief. She continues to lose weight. Will send prescripti on for Megace. Acute conjunctivitis 537 67176 H10.32 Patient returns on May 11, 2023. She has had erythema, conjuntiva inflammati on, discharged and matted left eye. She has been using warm compresses . Will send prescripti on for eye drops for conjunctiv itis.Will send in repeat prescripti on for eye drops. Diarrhea 84265577 R19.7 Diarrhea has resolved. Patient with recent C diff Deep venou s thrombosis 828206061 I82.409 Patient developed right lower extremity pain and edema.Veno us duplex on May 28, 2023 with evidence of deep vein thrombosis . Started on Eliquis 5 mg 1 tab p.o. b.i.d.. Did not start with Eliquis starter pack due to recent bleeding. Patient had a DVT and a PE in 1990 after her hysterecto my. Anxiety 65303977 F41.9 Patient has had increased anxiety. She is tearful and crying during her visit today due to all of her health problems. She does not want to take an antidepres melina at this time. Discussed low-dose Ativan. Improvemen t in mood overall on visit from June 08, 2023. [id number] Hanna Snider PA-C [facility] [address] [place] [address] 10/19/2023 09:07:50 10/19/2023 10:19:57 Malignant tumor of ascending colon 457541842 C18.2 CT scan of the abdomen and [...] 8.2 hematocrit 29.0. MCV 67.9. Platelet count 222238. Normal cell differenti al. Low serum folate [...] juaniat froilan. Metastatic malignant neoplasm to liver 96849366 C78.7 CT scan of the abdomen and [...] Findings concerning for metastatic colon cancer. Nausea 043976538 R11.0 As needed Zofran and Phenergan prescribed . Pain due t o neoplastic disease 4417581361 9102 G89.3 Right upper quadrant pain secondary to liver metastasis . Patient currently taking Tylenol. Discussed as needed oxycodone to limit Tylenol exposure. Anemia 499152486 D64.9 Right-side d colon mass concerning for malignancy . Will assess for any signs of iron deficiency . Most recent hemoglobin at 8.0. Concern for blood loss from colon mass. Patient reports dark stools. Adopted 258953749 Z62.89 8 Patient is adopted and discussed hereditary gene panel. Patient does have family history of her son having bladder cancer. Will send [facility] hereditary panel. Antineopla stic chemotherapy regimen 058962099 Z51.11 Week 1 5FU Leucovorin Vectibix on [...] with Vectibix on October 19, 2023. Hypokalemia 54585998 E87 .6 Patient returns on April 29, 2023. Potassium is low at 2.9. Will send prescripti on for potassium 20 mEq daily. Will follow-up labs again next week. Loss of appetite 4591367 6 R63.0 Patient has had nausea and decreased appetite since her cancer diagnosis. She can not tolerate her nutritiona l drinks. She does take Phenergan with relief. She continues to lose weight. Will send prescripti on for Megace. Acute conjunctivitis 537 40699 H10.32 Patient returns on May 11, 2023. She has had erythema, conjuntiva inflammati on, discharged and matted left eye. She has been using warm compresses . Will send prescripti on for eye drops for conjunctiv itis.Will send in repeat prescripti on for eye drops. Diarrhea 26247918 R19.7 Diarrhea has resolved. Patient with recent C diff Deep venou s thrombosis 231707887 I82.409 Patient developed right lower extremity pain and edema.Veno us duplex on May 28, 2023 with evidence of deep vein thrombosis . Started on Eliquis 5 mg 1 tab p.o. b.i.d.. Did not start with Eliquis starter pack due to recent bleeding. Patient had a DVT and a PE in 1990 after her hysterecto my. Anxiety 03774724 F41.9 Patient has had increased anxiety. She is tearful and crying during her visit today due to all of her health problems. She does not want to take an antidepres melina at this time. Discussed low-dose Ativan. Improvemen t in mood overall on visit from June 08, 2023. [id number] Hanna Snider PA-C [facility] [address] [place] [address] 11/02/2023 09:20:10 11/02/2023 09:58:16 Malignant tumor of ascending colon 650207560 C18.2 CT scan of the abdomen and [...] 8.2 hematocrit 29.0. MCV 67.9. Platelet count 996958. Normal cell differenti al. Low serum folate [...] ed Eliquis Metastatic malignant neoplasm to liver 69168272 C78.7 CT scan of the abdomen and [...] Findings concerning for metastatic colon cancer. Nausea 707440497 R11.0 As needed Zofran and Phenergan prescribed . Pain due t o neoplastic disease 3512377042 9102 G89.3 Right upper quadrant pain secondary to liver metastasis . Patient currently taking Tylenol. Discussed as needed oxycodone to limit Tylenol exposure. Anemia 454558949 D64.9 Right-side d colon mass concerning for malignancy . Will assess for any signs of iron deficiency . Most recent hemoglobin at 8.0. Concern for blood loss from colon mass. Patient reports dark stools. Adopted 587251833 Z62.89 8 Patient is adopted and discussed hereditary gene panel. Patient does have family history of her son having bladder cancer. Will send [facility] hereditary panel. Antineopla stic chemotherapy regimen 361977095 Z51.11 Week 1 5FU Leucovorin Vectibix on [...] with Vectibix on November 02, 2023. Hypokalemia 94204472 E87 .6 Patient returns on April 29, 2023. Potassium is low at 2.9. Will send prescripti on for potassium 20 mEq daily. Will follow-up labs again next week. Loss of appetite 9167263 6 R63.0 Patient has had nausea and decreased appetite since her cancer diagnosis. She can not tolerate her nutritiona l drinks. She does take Phenergan with relief. She continues to lose weight. Will send prescripti on for Megace. Acute conjunctivitis 537 09378 H10.32 Patient returns on May 11, 2023. She has had erythema, conjuntiva inflammati on, discharged and matted left eye. She has been using warm compresses . Will send prescripti on for eye drops for conjunctiv itis.Will send in repeat prescripti on for eye drops. Diarrhea 37993204 R19.7 Diarrhea has resolved. Patient with recent C diff Deep venou s thrombosis 888281965 I82.409 Patient developed right lower extremity pain and edema.Veno us duplex on May 28, 2023 with evidence of deep vein thrombosis . Started on Eliquis 5 mg 1 tab p.o. b.i.d.. Did not start with Eliquis starter pack due to recent bleeding. Patient had a DVT and a PE in 1990 after her hysterecto my. Anxiety 52793715 F41.9 Patient has had increased anxiety. She is tearful and crying during her visit today due to all of her health problems. She does not want to take an antidepres melina at this time. Discussed low-dose Ativan. Improvemen t in mood overall on visit from June 08, 2023. [id number] Addy Gonzales MD [facility] General Surgery [address] [place] [address],[address] [place] [address] 11/03/2023 13:09:58 11/03/2023 14:02:01 Malignant tumor of ascending colon 851358715 C18.2 I have scheduled the patient for [...] as a part of this patient's care. [id number] Hanna Snider PA-C [facility] [address] [place] [address] 11/23/2023 09:05:54 11/23/2023 09:52:19 Malignant tumor of ascending colon 791787780 C18.2 CT scan of the abdomen and [...] 8.2 hematocrit 29.0. MCV 67.9. Platelet count 341553. Normal cell differenti al. Low serum folate [...] mg daily. Metastatic malignant neoplasm to liver 52078951 C78.7 CT scan of the abdomen and [...] Findings concerning for metastatic colon cancer. Nausea 061096484 R11.0 As needed Zofran and Phenergan prescribed . Pain due t o neoplastic disease 1543092110 9102 G89.3 Right upper quadrant pain secondary to liver metastasis . Patient currently taking Tylenol. Discussed as needed oxycodone to limit Tylenol exposure. Anemia 178064029 D64.9 Right-side d colon mass concerning for malignancy . Will assess for any signs of iron deficiency . Most recent hemoglobin at 8.0. Concern for blood loss from colon mass. Patient reports dark stools. Adopted 590590160 Z62.89 8 Patient is adopted and discussed hereditary gene panel. Patient does have family history of her son having bladder cancer. Will send [facility] hereditary panel. Antineopla stic chemotherapy regimen 859332264 Z51.11 Week 1 5FU Leucovorin Vectibix on [...] with Vectibix on November 23, 2023. Hypokalemia 30870535 E87 .6 Patient returns on April 29, 2023. Potassium is low at 2.9. Will send prescripti on for potassium 20 mEq daily. Will follow-up labs again next week. Loss of appetite 2565776 6 R63.0 Patient has had nausea and decreased appetite since her cancer diagnosis. She can not tolerate her nutritiona l drinks. She does take Phenergan with relief. She continues to lose weight. Will send prescripti on for Megace. Acute conjunctivitis 536 70167 H10.32 Patient returns on May 11, 2023. She has had erythema, conjuntiva inflammati on, discharged and matted left eye. She has been using warm compresses . Will send prescripti on for eye drops for conjunctiv itis.Will send in repeat prescripti on for eye drops. Diarrhea 62458625 R19.7 Diarrhea has resolved. Patient with recent C diff Deep venou s thrombosis 722189738 I82.409 Patient developed right lower extremity pain and edema.Veno us duplex on May 28, 2023 with evidence of deep vein thrombosis . Started on Eliquis 5 mg 1 tab p.o. b.i.d.. Did not start with Eliquis starter pack due to recent bleeding. Patient had a DVT and a PE in 1990 after her hysterecto my. Anxiety 72204287 F41.9 Patient has had increased anxiety. She is tearful and crying during her visit today due to all of her health problems. She does not want to take an antidepres melina at this time. Discussed low-dose Ativan. Improvemen t in mood overall on visit from June 08, 2023. Mixed anxi ety and depressive disorder 064760664 F41.8 Patient returns on November 23, 2023. [...] Mirtazapin e dose to 30 mg daily. [id number] Tomy King MD [facility] [address] [place] [address] 12/07/2023 09:01:54 12/07/2023 09:40:34 Malignant tumor of ascending colon 983644890 C18.2 CT scan of the abdomen and [...] 8.2 hematocrit 29.0. MCV 67.9. Platelet count 002081. Normal cell differenti al. Low serum folate [...] 2 weeks. Metastatic malignant neoplasm to liver 06315819 C78.7 CT scan of the abdomen and [...] Findings concerning for metastatic colon cancer. Nausea 292822458 R11.0 As needed Zofran and Phenergan prescribed . Pain due t o neoplastic disease 8146110511 9102 G89.3 Right upper quadrant pain secondary to liver metastasis . Patient currently taking Tylenol. Discussed as needed oxycodone to limit Tylenol exposure. Anemia 776902641 D64.9 Right-side d colon mass concerning for malignancy . Will assess for any signs of iron deficiency . Most recent hemoglobin at 8.0. Concern for blood loss from colon mass. Patient reports dark stools. Adopted 195625104 Z62.89 8 Patient is adopted and discussed hereditary gene panel. Patient does have family history of her son having bladder cancer. Will send [facility] hereditary panel. Antineopla stic chemotherapy regimen 011556163 Z51.11 Week 1 5FU Leucovorin Vectibix on [...] with Vectibix on December 07, 2023. Hypokalemia 25348591 E87 .6 Patient returns on April 29, 2023. Potassium is low at 2.9. Will send prescripti on for potassium 20 mEq daily. Will follow-up labs again next week. Deep venou s thrombosis 374572590 I82.409 Patient developed right lower extremity pain and edema.Veno us duplex on May 28, 2023 with evidence of deep vein thrombosis . Started on Eliquis 5 mg 1 tab p.o. b.i.d.. Did not start with Eliquis starter pack due to recent bleeding. Patient had a DVT and a PE in 1990 after her hysterecto my. Mixed anxi ety and depressive disorder 369585983 F41.8 Patient returns on November 23, 2023. [...] to 30 mg daily. Atopic conjunctivitis 23 3253036 H10.12 Patient with conjunctiv itis of the left eye. Holding Vectibix today on December 07, 2023. Continue with current therapy. Will follow up again in 2 weeks. [id number] Hanna Snider PA-C [facility] [address] [place] [address] 12/21/2023 09:48:25 12/21/2023 10:21:03 Malignant tumor of ascending colon 238329692 C18.2 CT scan of the abdomen and [...] 8.2 hematocrit 29.0. MCV 67.9. Platelet count 412835. Normal cell differenti al. Low serum folate [...] 2 weeks. Metastatic malignant neoplasm to liver 34937542 C78.7 CT scan of the abdomen and [...] Findings concerning for metastatic colon cancer. Nausea 726748050 R11.0 As needed Zofran and Phenergan prescribed . Pain due t o neoplastic disease 7964102435 9102 G89.3 Right upper quadrant pain secondary to liver metastasis . Patient currently taking Tylenol. Discussed as needed oxycodone to limit Tylenol exposure. Anemia 616229726 D64.9 Right-side d colon mass concerning for malignancy . Will assess for any signs of iron deficiency . Most recent hemoglobin at 8.0. Concern for blood loss from colon mass. Patient reports dark stools. Adopted 848460626 Z62.89 8 Patient is adopted and discussed hereditary gene panel. Patient does have family history of her son having bladder cancer. Will send [facility] hereditary panel. Antineopla stic chemotherapy regimen 504159942 Z51.11 Week 1 5FU Leucovorin Vectibix on [...] with Vectibix on November 21, 2023. Hypokalemia 37304701 E87 .6 Patient returns on April 29, 2023. Potassium is low at 2.9. Will send prescripti on for potassium 20 mEq daily. Will follow-up labs again next week. Deep venou s thrombosis 437464514 I82.409 Patient developed right lower extremity pain and edema.Veno us duplex on May 28, 2023 with evidence of deep vein thrombosis . Started on Eliquis 5 mg 1 tab p.o. b.i.d.. Did not start with Eliquis starter pack due to recent bleeding. Patient had a DVT and a PE in 1990 after her hysterecto my. Mixed anxi ety and depressive disorder 918550017 F41.8 Patient returns on November 23, 2023. [...] to 30 mg daily. Atopic conjunctivitis 23 [id number] H10.12 Patient with conjunctiv itis of the left eye. Held Vectibix on December 07, 2023. Continue with current therapy. Will follow up again in 2 weeks. [id number] Hanna Snider PA-C [facility] [address] [place] [address] 01/04/2024 09:55:59 01/04/2024 10:32:04 Malignant tumor of ascending colon 040698939 C18.2 CT scan of the abdomen and [...] 8.2 hematocrit 29.0. MCV 67.9. Platelet count 797549. Normal cell differenti al. Low serum folate [...] January 2024. Metastatic malignant neoplasm to liver 54257541 C78.7 CT scan of the abdomen and [...] Findings concerning for metastatic colon cancer. Nausea 477535535 R11.0 As needed Zofran and Phenergan prescribed . Pain due t o neoplastic disease [id number] 9102 G89.3 Right upper quadrant pain secondary to liver metastasis . Patient currently taking Tylenol. Discussed as needed oxycodone to limit Tylenol exposure. Anemia 110173899 D64.9 Right-side d colon mass concerning for malignancy . Will assess for any signs of iron deficiency . Most recent hemoglobin at 8.0. Concern for blood loss from colon mass. Patient reports dark stools. Adopted 110020329 Z62.89 8 Patient is adopted and discussed hereditary gene panel. Patient does have family history of her son having bladder cancer. Will send [facility] hereditary panel. Antineopla stic chemotherapy regimen 992097002 Z51.11 Week 1 5FU Leucovorin Vectibix on [...] without Vectibix on January 04, 2024. Hypokalemia 63223953 E87 .6 Patient returns on April 29, 2023. Potassium is low at 2.9. Will send prescripti on for potassium 20 mEq daily. Will follow-up labs again next week. Deep venou s thrombosis 206443698 I82.409 Patient developed right lower extremity pain and edema.Veno us duplex on May 28, 2023 with evidence of deep vein thrombosis . Started on Eliquis 5 mg 1 tab p.o. b.i.d.. Did not start with Eliquis starter pack due to recent bleeding. Patient had a DVT and a PE in 1990 after her hysterecto my. Mixed anxi ety and depressive disorder 539003309 F41.8 Patient returns on November 23, 2023. [...] to 30 mg daily. Atopic conjunctivitis 23 2870183 H10.12 Patient with conjunctiv itis of the left eye. Held Vectibix on December 07, 2023. Continue with current therapy. Will follow up again in 2 weeks. Iron defic iency anemia 17777027 D50.9 [id number] Hanna Snider PA-C [facility] [address] [place] [address] 01/25/2024 09:42:09 01/25/2024 10:49:14 Malignant tumor of ascending colon 092996907 C18.2 CT scan of the abdomen and [...] 8.2 hematocrit 29.0. MCV 67.9. Platelet count 900437. Normal cell differenti al. Low serum folate [...] Will schedule. Metastatic malignant neoplasm to liver 57169288 C78.7 CT scan of the abdomen and [...] Findings concerning for metastatic colon cancer. Nausea 555010091 R11.0 As needed Zofran and Phenergan prescribed . Pain due t o neoplastic disease [id number] 9102 G89.3 Right upper quadrant pain secondary to liver metastasis . Patient currently taking Tylenol. Discussed as needed oxycodone to limit Tylenol exposure. Anemia 481773177 D64.9 Right-side d colon mass concerning for malignancy . Will assess for any signs of iron deficiency . Most recent hemoglobin at 8.0. Concern for blood loss from colon mass. Patient reports dark stools. Adopted 578696670 Z62.89 8 Patient is adopted and discussed hereditary gene panel. Patient does have family history of her son having bladder cancer. Will send [facility] hereditary panel. Antineopla stic chemotherapy regimen 517103076 Z51.11 Week 1 5FU Leucovorin Vectibix on [...] with Vectibix on January 25, 2024. Hypokalemia 40060097 E87 .6 Patient returns on April 29, 2023. Potassium is low at 2.9. Will send prescripti on for potassium 20 mEq daily. Will follow-up labs again next week. Deep venou s thrombosis 171327294 I82.409 Patient developed right lower extremity pain and edema.Veno us duplex on May 28, 2023 with evidence of deep vein thrombosis . Started on Eliquis 5 mg 1 tab p.o. b.i.d.. Did not start with Eliquis starter pack due to recent bleeding. Patient had a DVT and a PE in 1990 after her hysterecto my. Mixed anxi ety and depressive disorder 981410366 F41.8 Patient returns on November 23, 2023. [...] to 30 mg daily. Atopic conjunctivitis 23 1525448 H10.12 Patient with conjunctiv itis of the left eye. Held Vectibix on December 07, 2023. Continue with current therapy. Will follow up again in 2 weeks. Iron defic iency anemia 56175530 D50.9 [id number] Hanna Snider PA-C [facility] [address] [place] [address] 02/08/2024 09:30:04 02/08/2024 10:49:29 Malignant tumor of ascending colon 568989874 C18.2 CT scan of the abdomen and [...] 8.2 hematocrit 29.0. MCV 67.9. Platelet count 867984. Normal cell differenti al. Low serum folate [...] follow-up imaging. Metastatic malignant neoplasm to liver 65775789 C78.7 CT scan of the abdomen and [...] Findings concerning for metastatic colon cancer. Nausea 910738276 R11.0 As needed Zofran and Phenergan prescribed . Pain due t o neoplastic disease 0609214627 9102 G89.3 Right upper quadrant pain secondary to liver metastasis . Patient currently taking Tylenol. Discussed as needed oxycodone to limit Tylenol exposure. Anemia 977416361 D64.9 Right-side d colon mass concerning for malignancy . Will assess for any signs of iron deficiency . Most recent hemoglobin at 8.0. Concern for blood loss from colon mass. Patient reports dark stools. Adopted 849051014 Z62.89 8 Patient is adopted and discussed hereditary gene panel. Patient does have family history of her son having bladder cancer. Will send [facility] hereditary panel. Antineopla stic chemotherapy regimen 711799367 Z51.11 Week 1 5FU Leucovorin Vectibix on [...] without Vectibix on February 08, 2024. Hypokalemia 02664355 E87 .6 Patient returns on April 29, 2023. Potassium is low at 2.9. Will send prescripti on for potassium 20 mEq daily. Will follow-up labs again next week. Deep venou s thrombosis 642379434 I82.409 Patient developed right lower extremity pain and edema.Veno us duplex on May 28, 2023 with evidence of deep vein thrombosis . Started on Eliquis 5 mg 1 tab p.o. b.i.d.. Did not start with Eliquis starter pack due to recent bleeding. Patient had a DVT and a PE in 1990 after her hysterecto my. Mixed anxi ety and depressive disorder 487707199 F41.8 Patient returns on November 23, 2023. [...] to 30 mg daily. Atopic conjunctivitis 23 7308247 H10.12 Patient with conjunctiv itis of the left eye. Held Vectibix on December 07, 2023. Continue with current therapy. Will follow up again in 2 weeks. Iron defic iency anemia 12819629 D50.9 Will follow up labs Insomnia 766739459 G47.0 0 Patient returns on February 08, 2024. She has had difficulty sleeping for most of her life. She has tried multiple medication s without relief. She is tried Mirtazapin e and lorazepam without improvemen t of insomnia. Discussed trying trazodone instead. Will send prescripti on. Will send prescripti on for Requip for restless legs. Restless legs 25015306 G 25.81 Patient returns on February 08, 2024. She has had difficulty sleeping for most of her life. She has tried multiple medication s without relief. She is tried Mirtazapin e and lorazepam without improvemen t of insomnia. Discussed trying trazodone instead. Will send prescripti on. Will send prescripti on for Requip for restless legs. [id number] Hanna Snider PA-C [facility] [address] [facility] [address] [place] [address] 02/22/2024 10:08:45 02/22/2024 10:41:02 Malignant tumor of ascending colon 319928990 C18.2 CT scan of the abdomen and [...] 8.2 hematocrit 29.0. MCV 67.9. Platelet count 168659. Normal cell differenti al. Low serum folate [...] 15, 2024. Metastatic malignant neoplasm to liver 71887217 C78.7 CT scan of the abdomen and [...] Findings concerning for metastatic colon cancer. Nausea 317559912 R11.0 As needed Zofran and Phenergan prescribed . Pain due t o neoplastic disease 9166589756 9102 G89.3 Right upper quadrant pain secondary to liver metastasis . Patient currently taking Tylenol. Discussed as needed oxycodone to limit Tylenol exposure. Anemia 850001907 D64.9 Right-side d colon mass concerning for malignancy . Will assess for any signs of iron deficiency . Most recent hemoglobin at 8.0. Concern for blood loss from colon mass. Patient reports dark stools. Adopted 439794272 Z62.89 8 Patient is adopted and discussed hereditary gene panel. Patient does have family history of her son having bladder cancer. Will send [facility] hereditary panel. Antineopla stic chemotherapy regimen 212973492 Z51.11 Week 1 5FU Leucovorin Vectibix on [...] with Vectibix on February 22, 2024. Hypokalemia 88100510 E87 .6 Patient returns on April 29, 2023. Potassium is low at 2.9. Will send prescripti on for potassium 20 mEq daily. Will follow-up labs again next week. Deep venou s thrombosis 289919162 I82.409 Patient developed right lower extremity pain and edema.Veno us duplex on May 28, 2023 with evidence of deep vein thrombosis . Started on Eliquis 5 mg 1 tab p.o. b.i.d.. Did not start with Eliquis starter pack due to recent bleeding. Patient had a DVT and a PE in 1990 after her hysterecto my. Mixed anxi ety and depressive disorder 185358610 F41.8 Patient returns on November 23, 2023. [...] to 30 mg daily. Atopic conjunctivitis 23 4326871 H10.12 Patient with conjunctiv itis of the left eye. Held Vectibix on December 07, 2023. Continue with current therapy. Will follow up again in 2 weeks. Iron defic iency anemia 02055047 D50.9 Will follow up labs Insomnia 466371625 G47.0 0 Patient returns on February 08, 2024. She has had difficulty sleeping for most of her life. She has tried multiple medication s without relief. She is tried Mirtazapin e and lorazepam without improvemen t of insomnia. Discussed trying trazodone instead. Will send prescripti on. Will send prescripti on for Requip for restless legs. Restless legs 18397056 G 25.81 Patient returns on February 08, 2024. She has had difficulty sleeping for most of her life. She has tried multiple medication s without relief. She is tried Mirtazapin e and lorazepam without improvemen t of insomnia. Discussed trying trazodone instead. Will send prescripti on. Will send prescripti on for Requip for restless legs. Infection of skin and/or subcutaneous tissue 32198662 L08.9 Patient returns on February 22, 2024. Patient has paronychia of the left ring finger after pulling a piece of loose skin yesterday. No abscess or drainage present. Discussed topical antibiotic s plus warm water soaks. Will send prescripti on. Discussed if does not improve or worsens will do oral antibiotic s. Will follow-up. [id number] Hanna Snider PA-C [facility] [address] [facility] [address] [place] [address] 03/07/2024 10:12:33 03/07/2024 11:14:04 Malignant tumor of ascending colon 854965861 C18.2 CT scan of the abdomen and [...] 8.2 hematocrit 29.0. MCV 67.9. Platelet count 832536. Normal cell differenti al. Low serum folate [...] 15, 2024. Metastatic malignant neoplasm to liver 42507349 C78.7 CT scan of the abdomen and [...] Findings concerning for metastatic colon cancer. Nausea 176782505 R11.0 As needed Zofran and Phenergan prescribed . Pain due t o neoplastic disease 9371095081 9102 G89.3 Right upper quadrant pain secondary to liver metastasis . Patient currently taking Tylenol. Discussed as needed oxycodone to limit Tylenol exposure. Anemia 598474101 D64.9 Right-side d colon mass concerning for malignancy . Will assess for any signs of iron deficiency . Most recent hemoglobin at 8.0. Concern for blood loss from colon mass. Patient reports dark stools. Adopted 680552343 Z62.89 8 Patient is adopted and discussed hereditary gene panel. Patient does have family history of her son having bladder cancer. Will send [facility] hereditary panel. Antineopla stic chemotherapy regimen 436258650 Z51.11 Week 1 5FU Leucovorin Vectibix on [...] with Vectibix on March 07, 2024. Hypokalemia 75334433 E87 .6 Patient returns on April 29, 2023. Potassium is low at 2.9. Will send prescripti on for potassium 20 mEq daily. Will follow-up labs again next week. Deep venou s thrombosis 646115137 I82.409 Patient developed right lower extremity pain and edema.Veno us duplex on May 28, 2023 with evidence of deep vein thrombosis . Started on Eliquis 5 mg 1 tab p.o. b.i.d.. Did not start with Eliquis starter pack due to recent bleeding. Patient had a DVT and a PE in 1990 after her hysterecto my. Mixed anxi ety and depressive disorder 732685417 F41.8 Patient returns on November 23, 2023. [...] dose to 30 mg daily. Atopic conjunctivitis 2230756 H10.12 Patient with conjunctiv itis of the left eye. Held Vectibix on December 07, 2023. Continue with current therapy. Will follow up again in 2 weeks. Iron defic iency anemia 61552744 D50.9 Will follow up labs Insomnia 217996525 G47.0 0 Patient returns on February 08, 2024. She has had difficulty sleeping for most of her life. She has tried multiple medication s without relief. She is tried Mirtazapin e and lorazepam without improvemen t of insomnia. Discussed trying trazodone instead. Will send prescripti on. Will send prescripti on for Requip for restless legs. Restless legs 38705260 G 25.81 Patient returns on February 08, 2024. She has had difficulty sleeping for most of her life. She has tried multiple medication s without relief. She is tried Mirtazapin e and lorazepam without improvemen t of insomnia. Discussed trying trazodone instead. Will send prescripti on. Will send prescripti on for Requip for restless legs. Infection of skin and/or subcutaneous tissue 21121259 L08.9 Patient returns on February 22, 2024. Patient has paronychia of the left ring finger after pulling a piece of loose skin yesterday. No abscess or drainage present. Discussed topical antibiotic s plus warm water soaks. Will send prescripti on. Discussed if does not improve or worsens will do oral antibiotic s. Will follow-up. This has resolved. [id number] Hanna Snider PA-C [facility] [address] [place] [address] 03/21/2024 09:44:36 03/21/2024 10:52:41 Malignant tumor of ascending colon 081524554 C18.2 CT scan of the abdomen and [...] 8.2 hematocrit 29.0. MCV 67.9. Platelet count 949488. Normal cell differenti al. Low serum folate [...] current therapy. Metastatic malignant neoplasm to liver 19736052 C78.7 CT scan of the abdomen and [...] Findings concerning for metastatic colon cancer. Nausea 574840974 R11.0 As needed Zofran and Phenergan prescribed . Pain due t o neoplastic disease 6407881758 9102 G89.3 Right upper quadrant pain secondary to liver metastasis . Patient currently taking Tylenol. Discussed as needed oxycodone to limit Tylenol exposure. Anemia 728847353 D64.9 Right-side d colon mass concerning for malignancy . Will assess for any signs of iron deficiency . Most recent hemoglobin at 8.0. Concern for blood loss from colon mass. Patient reports dark stools. Adopted 271871260 Z62.89 8 Patient is adopted and discussed hereditary gene panel. Patient does have family history of her son having bladder cancer. Will send [facility] hereditary panel. Antineopla stic chemotherapy regimen 933277159 Z51.11 Week 1 5FU Leucovorin Vectibix on [...] with Vectibix on March 21, 2024. Hypokalemia 46124405 E87 .6 Patient returns on April 29, 2023. Potassium is low at 2.9. Will send prescripti on for potassium 20 mEq daily. Will follow-up labs again next week. Deep venou s thrombosis 817693978 I82.409 Patient developed right lower extremity pain and edema.Veno us duplex on May 28, 2023 with evidence of deep vein thrombosis . Started on Eliquis 5 mg 1 tab p.o. b.i.d.. Did not start with Eliquis starter pack due to recent bleeding. Patient had a DVT and a PE in 1990 after her hysterecto my. Mixed anxi ety and depressive disorder 447179928 F41.8 Patient returns on November 23, 2023. [...] to 30 mg daily. Atopic conjunctivitis 23 9907911 H10.12 Patient with conjunctiv itis of the left eye. Held Vectibix on December 07, 2023. Continue with current therapy. Will follow up again in 2 weeks. Iron defic iency anemia 71710583 D50.9 Will follow up labs Insomnia 278178688 G47.0 0 Patient returns on February 08, 2024. She has had difficulty sleeping for most of her life. She has tried multiple medication s without relief. She is tried Mirtazapin e and lorazepam without improvemen t of insomnia. Discussed trying trazodone instead. Will send prescripti on. Will send prescripti on for Requip for restless legs. Restless legs 61522595 G 25.81 Patient returns on February 08, 2024. She has had difficulty sleeping for most of her life. She has tried multiple medication s without relief. She is tried Mirtazapin e and lorazepam without improvemen t of insomnia. Discussed trying trazodone instead. Prescripti on sent for Requip for restless legs. [id number] Hanna Snider PA-C [facility] [address] [place] [address] 04/04/2024 09:54:49 04/04/2024 10:42:05 Malignant tumor of ascending colon 472893744 C18.2 CT scan of the abdomen and [...] 8.2 hematocrit 29.0. MCV 67.9. Platelet count 326370. Normal cell differenti al. Low serum folate [...] current therapy. Metastatic malignant neoplasm to liver 01704636 C78.7 CT scan of the abdomen and [...] Findings concerning for metastatic colon cancer. Nausea 064996898 R11.0 As needed Zofran and Phenergan prescribed . Pain due t o neoplastic disease 5749837743 9102 G89.3 Right upper quadrant pain secondary to liver metastasis . Patient currently taking Tylenol. Discussed as needed oxycodone to limit Tylenol exposure. Anemia 006586867 D64.9 Right-side d colon mass concerning for malignancy . Will assess for any signs of iron deficiency . Most recent hemoglobin at 8.0. Concern for blood loss from colon mass. Patient reports dark stools. Adopted 952875136 Z62.89 8 Patient is adopted and discussed hereditary gene panel. Patient does have family history of her son having bladder cancer. Will send [employer] hereditary panel. Antineopla stic chemotherapy regimen 633696025 Z51.11 Week 1 5FU Leucovorin Vectibix on [...] without Vectibix on April 04, 2024. Hypokalemia 19480333 E87 .6 Patient returns on April 29, 2023. Potassium is low at 2.9. Will send prescripti on for potassium 20 mEq daily. Will follow-up labs again next week. Deep venou s thrombosis 320177921 I82.409 Patient developed right lower extremity pain and edema.Veno us duplex on May 28, 2023 with evidence of deep vein thrombosis . Started on Eliquis 5 mg 1 tab p.o. b.i.d.. Did not start with Eliquis starter pack due to recent bleeding. Patient had a DVT and a PE in 1990 after her hysterecto my. Mixed anxi ety and depressive disorder 311601052 F41.8 Patient returns on November 23, 2023. [...] prescripti on for Cymbalta. Atopic conjunctivitis 23 8840943 H10.12 Patient with conjunctiv itis of the left eye. Held Vectibix on December 07, 2023. Continue with current therapy. Will follow up again in 2 weeks. Iron defic iency anemia 69781180 D50.9 Will follow up labs Insomnia 903019401 G47.0 0 Patient returns on February 08, 2024. She has had difficulty sleeping for most of her life. She has tried multiple medication s without relief. She is tried Mirtazapin e and lorazepam without improvemen t of insomnia. Discussed trying trazodone instead. Will send prescripti on. Will send prescripti on for Requip for restless legs. Restless legs 40323150 G 25.81 Patient returns on February 08, [...] also send prescripti on for fluconazol e. [id number] Hanna Snider PA-C [facility] [address] [place] [address] 04/18/2024 09:51:34 04/18/2024 11:21:47 Malignant tumor of ascending colon 462706244 C18.2 CT scan of the abdomen and [...] 8.2 hematocrit 29.0. MCV 67.9. Platelet count 676650. Normal cell differenti al. Low serum folate [...] current therapy. Metastatic malignant neoplasm to liver 73490617 C78.7 CT scan of the abdomen and [...] Findings concerning for metastatic colon cancer. Nausea 868171437 R11.0 As needed Zofran and Phenergan prescribed . Pain due t o neoplastic disease 1245184360 9102 G89.3 Right upper quadrant pain secondary to liver metastasis . Patient currently taking Tylenol. Discussed as needed oxycodone to limit Tylenol exposure. Anemia 200512519 D64.9 Right-side d colon mass concerning for malignancy . Will assess for any signs of iron deficiency . Most recent hemoglobin at 8.0. Concern for blood loss from colon mass. Patient reports dark stools. Adopted 413287331 Z62.89 8 Patient is adopted and discussed hereditary gene panel. Patient does have family history of her son having bladder cancer. Will send [facility] hereditary panel. Antineopla stic chemotherapy regimen 753273284 Z51.11 Week 1 5FU Leucovorin Vectibix on [...] without Vectibix on April 18, 2024. Hypokalemia 36666997 E87 .6 Patient returns on April 29, 2023. Potassium is low at 2.9. Will send prescripti on for potassium 20 mEq daily. Will follow-up labs again next week. Deep venou s thrombosis 335317771 I82.409 Patient developed right lower extremity pain and edema.Veno us duplex on May 28, 2023 with evidence of deep vein thrombosis . Started on Eliquis 5 mg 1 tab p.o. b.i.d.. Did not start with Eliquis starter pack due to recent bleeding. Patient had a DVT and a PE in 1990 after her hysterecto my. Mixed anxi ety and depressive disorder 517222898 F41.8 Patient returns on November 23, 2023. [...] prescripti on for Cymbalta. Atopic conjunctivitis 23 9405260 H10.12 Patient with conjunctiv itis of the left eye. Held Vectibix on December 07, 2023. Continue with current therapy. Will follow up again in 2 weeks. Iron defic iency anemia 37788437 D50.9 Will follow up labs Insomnia 981209423 G47.0 0 Patient returns on February 08, 2024. She has had difficulty sleeping for most of her life. She has tried multiple medication s without relief. She is tried Mirtazapin e and lorazepam without improvemen t of insomnia. Discussed trying trazodone instead. Will send prescripti on. Will send prescripti on for Requip for restless legs. Restless legs 72672987 G 25.81 Patient returns on February 08, [...] also send prescripti on for fluconazol e. [id number] Hanna Snider PA-C [facility] [address] [place] [address] 05/02/2024 09:52:10 05/02/2024 10:44:11 Malignant tumor of ascending colon 589826680 C18.2 CT scan of the abdomen and [...] 8.2 hematocrit 29.0. MCV 67.9. Platelet count 257811. Normal cell differenti al. Low serum folate of 5.0. B12 normal. Serum iron low at 10 and iron saturation low at 4%. Serum ferritin 171. CEA at 370. Tempus peripheral blood sample with findings of PI3K mutation at Exon 4. B Francsi mutation seen at 1.4%. APC mutation and [...] current therapy. Metastatic malignant neoplasm to liver 46656840 C78.7 CT scan of the abdomen and [...] Findings concerning for metastatic colon cancer. Nausea 760693176 R11.0 As needed Zofran and Phenergan prescribed . Pain due t o neoplastic disease 0139229137 9102 G89.3 Right upper quadrant pain secondary to liver metastasis . Patient currently taking Tylenol. Discussed as needed oxycodone to limit Tylenol exposure. Anemia 143652977 D64.9 Right-side d colon mass concerning for malignancy . Will assess for any signs of iron deficiency . Most recent hemoglobin at 8.0. Concern for blood loss from colon mass. Patient reports dark stools. Adopted [id number] Z62.89 8 Patient is adopted and discussed hereditary gene panel. Patient does have family history of her son having bladder cancer. Will send [facility] hereditary panel. Antineopla stic chemotherapy regimen 519219633 Z51.11 Week 1 5FU Leucovorin Vectibix on [...] without Vectibix on May 02, 2024. Hypokalemia 98596577 E87 .6 Patient returns on April 29, 2023. Potassium is low at 2.9. Will send prescripti on for potassium 20 mEq daily. Will follow-up labs again next week. Deep venou s thrombosis 516099986 I82.409 Patient developed right lower extremity pain and edema.Veno us duplex on May 28, 2023 with evidence of deep vein thrombosis . Started on Eliquis 5 mg 1 tab p.o. b.i.d.. Did not start with Eliquis starter pack due to recent bleeding. Patient had a DVT and a PE in 1990 after her hysterecto my. Mixed anxi ety and depressive disorder 857579537 F41.8 Patient returns on November 23, 2023. [...] prescripti on for Cymbalta. Atopic conjunctivitis 23 3288120 H10.12 Patient with conjunctiv itis of the left eye. Held Vectibix on December 07, 2023. Continue with current therapy. Will follow up again in 2 weeks. Iron defic iency anemia 99496324 D50.9 Will follow up labs Insomnia 936040214 G47.0 0 Patient returns on February 08, 2024. She has had difficulty sleeping for most of her life. She has tried multiple medication s without relief. She is tried Mirtazapin e and lorazepam without improvemen t of insomnia. Discussed trying trazodone instead. Will send prescripti on. Will send prescripti on for Requip for restless legs. Restless legs 29382459 G 25.81 Patient returns on February 08, [...] and took Diflucan tablet. Rash has resolved. [id number] Tomy King MD [facility] [address] [place] [address] 05/16/2024 10:11:10 05/16/2024 10:33:39 Malignant tumor of ascending colon 265938404 C18.2 CT scan of the abdomen and [...] 8.2 hematocrit 29.0. MCV 67.9. Platelet count 140107. Normal cell differenti al. Low serum folate [...] 16, 2024. Metastatic malignant neoplasm to liver 32051224 C78.7 CT scan of the abdomen and [...] Findings concerning for metastatic colon cancer. Nausea 472248306 R11.0 As needed Zofran and Phenergan prescribed . Pain due t o neoplastic disease [id number] 9102 G89.3 Right upper quadrant pain secondary to liver metastasis . Patient currently taking Tylenol. Discussed as needed oxycodone to limit Tylenol exposure. Anemia 979967720 D64.9 Right-side d colon mass concerning for malignancy . Will assess for any signs of iron deficiency . Most recent hemoglobin at 8.0. Concern for blood loss from colon mass. Patient reports dark stools. Adopted 095021549 Z62.89 8 Patient is adopted and discussed hereditary gene panel. Patient does have family history of her son having bladder cancer. Will send [facility] hereditary panel. Antineopla stic chemotherapy regimen 440948408 Z51.11 Week 1 5FU Leucovorin Vectibix on [...] on May 16, 2024. Vectibix resumed. Hypokalemia 16805729 E87 .6 Patient returns on April 29, 2023. Potassium is low at 2.9. Will send prescripti on for potassium 20 mEq daily. Will follow-up labs again next week. Deep venou s thrombosis 538228111 I82.409 Patient developed right lower extremity pain [...] duplex. Mixed anxi ety and depressive disorder 048597026 F41.8 Patient returns on November 23, 2023. [...] prescripti on for Cymbalta. Atopic conjunctivitis 23 1129617 H10.12 Patient with conjunctiv itis of the left eye. Held Vectibix on December 07, 2023. Continue with current therapy. Will follow up again in 2 weeks. Iron defic iency anemia 06163947 D50.9 Will follow up labs Insomnia 753758378 G47.0 0 Patient returns on February 08, 2024. She has had difficulty sleeping for most of her life. She has tried multiple medication s without relief. She is tried Mirtazapin e and lorazepam without improvemen t of insomnia. Discussed trying trazodone instead. Will send prescripti on. Will send prescripti on for Requip for restless legs. Restless legs 50552638 G 25.81 Patient returns on February 08, 2024. She has had difficulty sleeping for most of her life. She has tried multiple medication s without relief. She is tried Mirtazapin e and lorazepam without improvemen t of insomnia. Discussed trying trazodone instead. Prescripti on sent for Requip for restless legs. [id number] Hanna Snider PA-C [facility] [address] [facility] [address] [place] [address] 05/30/2024 09:21:34 05/30/2024 11:05:52 Malignant tumor of ascending colon 651599709 C18.2 CT scan of the abdomen and [...] 8.2 hematocrit 29.0. MCV 67.9. Platelet count 576379. Normal cell differenti al. Low serum folate [...] up labs. Metastatic malignant neoplasm to liver 07964028 C78.7 CT scan of the abdomen and [...] Findings concerning for metastatic colon cancer. Nausea 317305663 R11.0 As needed Zofran and Phenergan prescribed . Patient returns on May 30, 2024. Patient has had intermitte nt nausea that occurs randomly. Will try scopolamin e patches. Pain due t o neoplastic disease [id number] 9102 G89.3 Right upper quadrant pain secondary to liver metastasis . Patient currently taking Tylenol. Discussed as needed oxycodone to limit Tylenol exposure. Anemia 347766960 D64.9 Right-side d colon mass concerning for malignancy . Will assess for any signs of iron deficiency . Most recent hemoglobin at 8.0. Concern for blood loss from colon mass. Patient reports dark stools. Adopted 241416751 Z62.89 8 Patient is adopted and discussed hereditary gene panel. Patient does have family history of her son having bladder cancer. Will send [facility] hereditary panel. Antineopla stic chemotherapy regimen 927056528 Z51.11 Week 1 5FU Leucovorin Vectibix on [...] 2024. Patient will receive Vectibix today. Hypokalemia 27919268 E87 .6 Patient returns on April 29, 2023. Potassium is low at 2.9. Will send prescripti on for potassium 20 mEq daily. Will follow-up labs again next week. Deep venou s thrombosis 453837850 I82.409 Patient developed right lower extremity pain [...] duplex. Mixed anxi ety and depressive disorder 394196818 F41.8 Patient returns on November 23, 2023. [...] prescripti on for Cymbalta. Atopic conjunctivitis 23 9272482 H10.12 Patient with conjunctiv itis of the left eye. Held Vectibix on December 07, 2023. Continue with current therapy. Will follow up again in 2 weeks. Iron defic iency anemia 42000542 D50.9 Will follow up labs Insomnia 319997708 G47.0 0 Patient returns on February 08, 2024. She has had difficulty sleeping for most of her life. She has tried multiple medication s without relief. She is tried Mirtazapin e and lorazepam without improvemen t of insomnia. Discussed trying trazodone instead. Will send prescripti on. Will send prescripti on for Requip for restless legs. Restless legs 15964539 G 25.81 Patient returns on February 08, [...] the area dry. Will follow-up. Generalized rash 5934767 06 R21 Patient returns on May 30, [...] to keep the area dry. Will follow-up. [id number] Hanna Snider PA-C [facility] [address] [place] [address] 06/27/2024 09:58:37 06/27/2024 10:53:58 Malignant tumor of ascending colon 585206999 C18.2 CT scan of the abdomen and [...] 8.2 hematocrit 29.0. MCV 67.9. Platelet count 049454. Normal cell differenti al. Low serum folate [...] is following with the Coumadin clinic at [facility]. She is scheduled for [...] up labs. Metastatic malignant neoplasm to liver 76823866 C78.7 CT scan of the abdomen and [...] Findings concerning for metastatic colon cancer. Nausea 219413023 R11.0 As needed Zofran and Phenergan prescribed . Discussed trying scopolamin e patches but her insurance wouldn't cover. Pain due t o neoplastic disease 4410629340 9102 G89.3 Right upper quadrant pain secondary to liver metastasis . Patient currently taking Tylenol. Discussed as needed oxycodone to limit Tylenol exposure. Anemia 646674397 D64.9 Right-side d colon mass concerning for malignancy . Will assess for any signs of iron deficiency . Most recent hemoglobin at 8.0. Concern for blood loss from colon mass. Patient reports dark stools. Adopted 818417172 Z62.89 8 Patient is adopted and discussed hereditary gene panel. Patient does have family history of her son having bladder cancer. Will send [facility] hereditary panel. Antineopla stic chemotherapy regimen 210442381 Z51.11 Week 1 5FU Leucovorin Vectibix on [...] Patient will receive not Vectibix today. Hypokalemia 30250453 E87 .6 Patient returns on April 29, 2023. Potassium is low at 2.9. Will send prescripti on for potassium 20 mEq daily. Will follow-up labs again next week. Deep venou s thrombosis 007729374 I82.409 Patient developed right lower extremity pain [...] duplex. Mixed anxi ety and depressive disorder 749653257 F41.8 Patient returns on November 23, 2023. [...] prescripti on for Cymbalta. Atopic conjunctivitis 23 5297014 H10.12 Patient with conjunctiv itis of the left eye. Held Vectibix on December 07, 2023. Continue with current therapy. Will follow up again in 2 weeks. Iron defic iency anemia 89808139 D50.9 Will follow up labs Insomnia 934755090 G47.0 0 Patient returns on February 08, 2024. She has had difficulty sleeping for most of her life. She has tried multiple medication s without relief. She is tried Mirtazapin e and lorazepam without improvemen t of insomnia. Discussed trying trazodone instead. Will send prescripti on. Will send prescripti on for Requip for restless legs. Restless legs 13571062 G 25.81 Patient returns on February 08, [...] patient has not received Vectibix. Generalized rash 1260993 06 R21 Patient returns on May 30, [...] is following with the Coumadin clinic at [facility]. Congestive heart failure 98800594 I50.9 Patient returns on June 27, 2024. Since previous visit patient has been diagnosed with congestive heart failure and atrial fibrillati on. She has started lasix and is following with a cardiologi st. [id number] Hanna Snider PA-C [facility] [address] [place] [address] 07/11/2024 09:55:48 07/11/2024 10:53:23 Malignant tumor of ascending colon 070019573 C18.2 CT scan of the abdomen and [...] 8.2 hematocrit 29.0. MCV 67.9. Platelet count 166401. Normal cell differenti al. Low serum folate [...] up labs. Metastatic malignant neoplasm to liver 64445826 C78.7 CT scan of the abdomen and [...] Findings concerning for metastatic colon cancer. Nausea 782017115 R11.0 As needed Zofran and Phenergan prescribed . Discussed trying scopolamin e patches but her insurance wouldn't cover. She is taking Zofran with relief. Pain due t o neoplastic disease 8767826079 9102 G89.3 She is taking hydrocodon e 7.5 mg b.i.d. Discussed taking medication every 4-6 hours as needed. Anemia 460750297 D64.9 Right-side d colon mass concerning for malignancy . Will assess for any signs of iron deficiency . Most recent hemoglobin at 8.0. Concern for blood loss from colon mass. Patient reports dark stools. Adopted 596592307 Z62.89 8 Patient is adopted and discussed hereditary gene panel. Patient does have family history of her son having bladder cancer. Will send [facility] hereditary panel. Antineopla stic chemotherapy regimen 386405998 Z51.11 Week 1 5FU Leucovorin Vectibix on [...] 2024. Patient will receive Vectibix today. Hypokalemia 90213056 E87 .6 Patient returns on April 29, 2023. Potassium is low at 2.9. Will send prescripti on for potassium 20 mEq daily. Will follow-up labs again next week. Deep venou s thrombosis 968261162 I82.409 Patient developed right lower extremity pain [...] duplex. Mixed anxi ety and depressive disorder 665645909 F41.8 Patient returns on November 23, 2023. [...] prescripti on for Cymbalta. Atopic conjunctivitis 23 3418228 H10.12 Patient with conjunctiv itis of the left eye. Held Vectibix on December 07, 2023. Continue with current therapy. Will follow up again in 2 weeks. Iron defic iency anemia 30522423 D50.9 Will follow up labs Insomnia 923738948 G47.0 0 Patient returns on February 08, 2024. She has had difficulty sleeping for most of her life. She has tried multiple medication s without relief. She is tried Mirtazapin e and lorazepam without improvemen t of insomnia. Discussed trying trazodone instead. Will send prescripti on. Will send prescripti on for Requip for restless legs. Restless legs 51114929 G 25.81 Patient returns on February 08, [...] patient has not received Vectibix. Generalized rash 4563127 06 R21 Patient returns on May 30, [...] is following with the Coumadin clinic at [facility]. Congestive heart failure 95669394 I50.9 Patient returns on June 27, 2024. Since previous visit patient has been diagnosed with congestive heart failure and atrial fibrillati on. She has started lasix and is following with a cardiologi st. [id number] Jana España MD [facility] [address] [place] [address] 07/06/2024 10:53:43 07/08/2024 03:53:47 Seen by palliative care service 504921230 Z51.5 Introduced services today. Dtr and son would be NOK - she feels important to start thinking about completion of LW/AD- I provided copies today and [facility] and will plan to f/u on this is two weeks. Encouraged her to think about HCS/code status. Still wants to continue chemo and has scans next week - did not discuss hospice, but eligible at any point Pain due t o neoplastic disease 7132484610 9102 G89.3 Uncontroll ed, had lortab prescribed which manages pain well when she takes medication . Encouraged adherence. 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 Not taking cymbalta. Encouraged adherence and PRN ativan for breakthrou gh syptoms. Did not wish to pursue CBt at this time, will d/w Elsa for additional support options moving forward Nausea and vomiting 1693 1999 R11.2 Related to malignancy vs. Chemo. Improved with PRN and qAM zofran, likely related to chemo vs. malignancy Loss of appetite 7887120 6 R63.0 Related to malignancy . Not taking mirtazapin e. Does not want to add additional Rx at this itme or see nutrition st. [id number] Hanna Snider PA-C [facility] [address] [place] [address] 07/25/2024 10:19:02 07/25/2024 10:39:35 Malignant tumor of ascending colon 186354603 C18.2 CT scan of the abdomen and [...] 8.2 hematocrit 29.0. MCV 67.9. Platelet count 485183. Normal cell differenti al. Low serum folate [...] Vectibix today. Metastatic malignant neoplasm to liver 95172807 C78.7 CT scan of the abdomen and [...] Findings concerning for metastatic colon cancer. Nausea 373580018 R11.0 As needed Zofran and Phenergan prescribed . Discussed trying scopolamin e patches but her insurance wouldn't cover. She is taking Zofran with relief. Pain due t o neoplastic disease 4260178242 9102 G89.3 She is taking hydrocodon e 7.5 mg b.i.d. Discussed taking medication every 4-6 hours as needed. Anemia 632761038 D64.9 Right-side d colon mass concerning for malignancy . Will assess for any signs of iron deficiency . Hemoglobin previously 8.0. Concern for blood loss from colon mass. Patient reports dark stools. labs on July 25, 2024 with improvemen t of hemoglobin 12.6. Patient is currently receiving infusional iron. Adopted 661833342 Z62.89 8 Patient is adopted and discussed hereditary gene panel. Patient does have family history of her son having bladder cancer. Will send [facility] hereditary panel. Antineopla stic chemotherapy regimen 066533359 Z51.11 Week 1 5FU Leucovorin Vectibix on [...] Patient will not receive Vectibix today. Hypokalemia 19443923 E87 .6 Patient returns on April 29, 2023. Potassium is low at 2.9. Will send prescripti on for potassium 20 mEq daily. Will follow-up labs again next week. Deep venou s thrombosis 117174078 I82.409 Patient developed right lower extremity pain [...] duplex. Mixed anxi ety and depressive disorder 711168369 F41.8 Patient returns on November 23, 2023. [...] reports depression has improved. Atopic conjunctivitis 23 3615498 H10.12 Patient with conjunctiv itis of the left eye. Held Vectibix on December 07, 2023. Continue with current therapy. Will follow up again in 2 weeks. Patient returns on July 25, 2024. She does have conjunctiv itis of the left eye. Will hold Vectibix today. Will follow up. Iron defic iency anemia 10561012 D50.9 Currently receiving infusional iron. Will continue to monitor. Insomnia 311734772 G47.0 0 Patient returns on February 08, 2024. She has had difficulty sleeping for most of her life. She has tried multiple medication s without relief. She is tried Mirtazapin e and lorazepam without improvemen t of insomnia. Discussed trying trazodone instead. Will send prescripti on. Will send prescripti on for Requip for restless legs. Restless legs 15209933 G 25.81 Patient returns on February 08, [...] with diflucan and nystain powder. Generalized rash 0658908 06 R21 Patient returns on May 30, [...] is following with the Coumadin clinic at [facility]. Congestive heart failure 42752517 I50.9 Patient returns on June 27, 2024. Since previous visit patient has been diagnosed with congestive heart failure and atrial fibrillati on. She has started lasix and is following with a cardiologi st. Cachexia 887544517 R64 Patient returns on July 25, 2024. Patient has had decreased appetite. Continues to lose weight. She has lost 4 more lbs since previous visit. She is drinking nutritiona l supplement s. Discussed appetite stimulant. Patient previously refused. Now she is agreeable to try Megace. Will send prescripti on. Will follow up for angela oakley [id number] Tomy King MD [facility] [address] [place] [address] 08/01/2024 11:10:37 08/01/2024 12:30:43 Malignant tumor of ascending colon 887448991 C18.2 CT scan of the abdomen and [...] 8.2 hematocrit 29.0. MCV 67.9. Platelet count 212749. Normal cell differenti al. Low serum folate [...] study published in September 2022 in the [place] [employer] of combined Avastin therapy with [...] Will follow-up Metastatic malignant neoplasm to liver 65242591 C78.7 CT scan of the abdomen and [...] Findings concerning for metastatic colon cancer. Nausea 051189583 R11.0 As needed Zofran and Phenergan prescribed . Discussed trying scopolamin e patches but her insurance wouldn't cover. She is taking Zofran with relief. Pain due t o neoplastic disease 0032714828 9102 G89.3 She is taking hydrocodon e 7.5 mg b.i.d. Discussed taking medication every 4-6 hours as needed. Anemia 113987753 D64.9 Right-side d colon mass concerning for malignancy . Will assess for any signs of iron deficiency . Hemoglobin previously 8.0. Concern for blood loss from colon mass. Patient reports dark stools. labs on July 25, 2024 with improvemen t of hemoglobin 12.6. Patient is currently receiving infusional iron. Adopted 579479530 Z62.89 8 Patient is adopted and discussed hereditary gene panel. Patient does have family history of her son having bladder cancer. Will send [facility] hereditary panel. Antineopla stic chemotherapy regimen 116530807 Z51.11 Week 1 5FU Leucovorin Vectibix on [...] 2024 due to disease progressio n. Hypokalemia 84986858 E87 .6 Patient returns on April 29, 2023. Potassium is low at 2.9. Will send prescripti on for potassium 20 mEq daily. Will follow-up labs again next week. Deep venou s thrombosis 633965955 I82.409 Patient developed right lower extremity pain [...] duplex. Mixed anxi ety and depressive disorder 858130129 F41.8 Patient returns on November 23, 2023. [...] reports depression has improved. Atopic conjunctivitis 23 2070196 H10.12 Patient with conjunctiv itis of the left eye. Held Vectibix on December 07, 2023. Continue with current therapy. Will follow up again in 2 weeks. Patient returns on July 25, 2024. She does have conjunctiv itis of the left eye. Will hold Vectibix today. Will follow up. Iron defic iency anemia 00218163 D50.9 Currently receiving infusional iron. Will continue to monitor. Insomnia 521484719 G47.0 0 Patient returns on February 08, 2024. She has had difficulty sleeping for most of her life. She has tried multiple medication s without relief. She is tried Mirtazapin e and lorazepam without improvemen t of insomnia. Discussed trying trazodone instead. Will send prescripti on. Will send prescripti on for Requip for restless legs. Restless legs 85954484 G 25.81 Patient returns on February 08, [...] with diflucan and nystain powder. Generalized rash 7256278 06 R21 Patient returns on May 30, [...] is following with the Coumadin clinic at [facility]. Congestive heart failure 53987500 I50.9 Patient returns on June 27, 2024. Since previous visit patient has been diagnosed with congestive heart failure and atrial fibrillati on. She has started lasix and is following with a cardiologi st. Cachexia 590735286 R64 Patient returns on July 25, 2024. Patient has had decreased appetite. Continues to lose weight. She has lost 4 more lbs since previous visit. She is drinking nutritiona l supplement s. Discussed appetite stimulant. Patient previously refused. Now she is agreeable to try Megace. Will send prescripti on. Will follow up for angela oakley [id number] Hanna Snider PA-C [facility] [address] [place] [address] 08/10/2024 09:37:37 08/10/2024 10:29:37 Malignant tumor of ascending colon 179601916 C18.2 CT scan of the abdomen and [...] 8.2 hematocrit 29.0. MCV 67.9. Platelet count 218763. Normal cell differenti al. Low serum folate [...] study published in September 2022 in the [place] [employer] [facility] of combined Avastin therapy with [...] liver lesions. Metastatic malignant neoplasm to liver 13985202 C78.7 CT scan of the abdomen and [...] patient is a candidate for radiation Nausea 066291447 R11.0 As needed Zofran and Phenergan prescribed . Discussed trying scopolamin e patches but her insurance wouldn't cover. She is taking Zofran with relief. Pain due t o neoplastic disease 8897754067 9102 G89.3 She is taking hydrocodon e 7.5 mg b.i.d. Discussed taking medication every 4-6 hours as needed. Anemia 703315531 D64.9 Right-side d colon mass concerning for malignancy . Will assess for any signs of iron deficiency . Hemoglobin previously 8.0. Concern for blood loss from colon mass. Patient reports dark stools. Labs on August 10, 2024 with hemoglobin slightly low at 11.9. She is receiving infusional iron as needed. Adopted 015056341 Z62.89 8 Patient is adopted and discussed hereditary gene panel. Patient does have family history of her son having bladder cancer. [facility] Antineopla stic chemotherapy regimen 225676001 Z51.11 Week 1 5FU Leucovorin Vectibix on [...] monitor for tolerabili ty and toxicity. Hypokalemia 25623285 E87 .6 Currently taking for potassium 20 mEq daily. Will follow up labs. Mixed anxi ety and depressive disorder 659366808 F41.8 Patient returns on November 23, 2023. [...] reports depression has improved. Atopic conjunctivitis 23 0062101 H10.12 Conjunctiv itis due to Vectibix. This is improving. Iron defic iency anemia 23893699 D50.9 Currently receiving infusional iron as needed. Will continue to monitor. Insomnia 555813915 G47.0 0 Patient has had difficulty sleeping for most of her life. She has tried multiple medication s without relief. She is tried Mirtazapin e and lorazepam without improvemen t of insomnia. Discussed trying trazodone instead. Restless legs 00856980 G 25.81 Patient taking Requip for restless legs. Generalized rash 2272583 06 R21 Patient with rash due to Vectibix. This is improving. Atrial fibrillation 4943 6004 I48.91 Patient has been diagnosed with congestive heart failure and atrial fibrillati on. She has been started on Coumadin. She is following with the Coumadin clinic at [facility]. Congestive heart failure 71673612 I50.9 Patient has been diagnosed with congestive heart failure. She has started lasix and is following with a cardiologi st. Cachexia 281837380 R64 Patient has had decreased appetite and weight loss. She is drinking nutritiona l supplement s. Discussed appetite stimulant. Patient previously refused. She has started on Megace. Will continue to monitor History of deep vein thrombosis 256769435 Z86.718 Patient developed right lower extremity pain [...] repeat venous duplex. Drug therapy finding 309 550495 Z79.01 She continues on Coumadin due to a fib. She is following with the Coumadin clinic at [facility]. [id number] Hanna Snider PA-C [facility] [address] [place] [address] 08/25/2024 09:02:23 08/25/2024 09:51:52 Antineoplastic chemotherapy regimen 321583310 Z51.11 Week 1 5FU Leucovorin Vectibix on [...] and toxicity. Malignant tumor of ascending colon 580974135 C18.2 CT scan of the abdomen and [...] 8.2 hematocrit 29.0. MCV 67.9. Platelet count 132425. Normal cell differenti al. Low serum folate [...] study published in September 2022 in the [place] [facility] of combined Avastin therapy with [...] liver lesions. Metastatic malignant neoplasm to liver 83988878 C78.7 CT scan of the abdomen and [...] patient is a candidate for radiation Nausea 660556096 R11.0 As needed Zofran and Phenergan prescribed . Discussed trying scopolamin e patches but her insurance wouldn't cover. She is taking Zofran with relief. Pain due t o neoplastic disease [id number] 9102 G89.3 She is taking hydrocodon e [...] does take her current medication s Anemia 357259639 D64.9 Right-side d colon mass concerning for malignancy . Will assess for any signs of iron deficiency . Hemoglobin previously 8.0. Concern for blood loss from colon mass. Patient reports dark stools. Labs on August 10, 2024 with hemoglobin slightly low at 11.9. She is receiving infusional iron as needed. Adopted 509505791 Z62.89 8 Patient is adopted and discussed hereditary gene panel. Patient does have family history of her son having bladder cancer. [facility] hereditary panel sent Hypokalemia 31224103 E87 .6 Currently taking for potassium 20 mEq daily. Will follow up labs. Mixed anxi ety and depressive disorder 478834277 F41.8 Patient returns on November 23, 2023. [...] reports depression has improved. Atopic conjunctivitis 23 0564125 H10.12 Conjunctiv itis due to Vectibix. This is improving. Iron defic iency anemia 96906687 D50.9 Receiving infusional iron as needed. Will continue to monitor. Insomnia 871188330 G47.0 0 Patient has had difficulty sleeping for most of her life. She has tried multiple medication s without relief. She is tried Mirtazapin e and lorazepam without improvemen t of insomnia. Discussed trying trazodone instead. Restless legs 86402471 G 25.81 Patient taking Requip for restless legs. Generalized rash 2812514 06 R21 Rash due to Vectibix. This has improved. Atrial fibrillation 4943 6004 I48.91 Patient has been diagnosed with congestive heart failure and atrial fibrillati on. She has been started on Coumadin. She is following with the Coumadin clinic at [facility]. Congestive heart failure 69934862 I50.9 Patient has been diagnosed with congestive heart failure. She has started lasix and is following with a cardiologi st. Cachexia 109742700 R64 Patient has had decreased appetite and weight loss. She is drinking nutritiona l supplement s. Discussed appetite stimulant. Patient previously refused. She has started on Megace. She does not like the taste of Megace. Discussed Megace tablets instead of liquid but patient declines at this time. Will continue to monitor History of deep vein thrombosis 376809759 Z86.718 Patient developed right lower extremity pain [...] repeat venous duplex. Drug therapy finding 309 924481 Z79.01 She continues on Coumadin due to a fib. She is following with the Coumadin clinic at [facility]. Acute post traumatic headache 0232772008 35065 G44.319 Patient returns on August 25, 2024. [...] Internatio nal normalized ratio above reference range 108519747 R79.1 Patient returns on August 25, 2024. She is on Coumadin for atrial fibrillati on and her INR is elevated. She is going to the Coumadin Clinic for management . INR 8 today. She is going to hold Coumadin and contact Coumadin Clinic for directions today. Denies any bleeding at this time. [id number] Hanna Snider PA-C [facility] [address] [place] [address] 09/02/2024 11:29:36 09/02/2024 12:07:33 Antineoplastic chemotherapy regimen 737712695 Z51.11 Week 1 5FU Leucovorin Vectibix on [...] 2024. Will monitor for tolerabili ty and toxicity.Chante terri returns on September 02, 2024. Patient with increased diarrhea, nausea, and vomiting for the past 4 days. Discussed dose reducing Irinotecan with her next chemothera py cycle. Will follow up. Malignant tumor of ascending colon 557768205 C18.2 CT scan of the abdomen and [...] 8.2 hematocrit 29.0. MCV 67.9. Platelet count 740637. Normal cell differenti al. Low serum folate [...] study published in September 2022 in the [place] [facility] of combined Avastin therapy with [...] liver lesions. Metastatic malignant neoplasm to liver 60204111 C78.7 CT scan of the abdomen and [...] patient is a candidate for radiation Nausea 219845770 R11.0 As needed Zofran and Phenergan prescribed [...] ons. Pain due t o neoplastic disease 7975788124 9102 G89.3 She is taking hydrocodon e [...] tab po every 3-4 hours instead. Anemia 490866273 D64.9 Right-side d colon mass concerning for malignancy . Will assess for any signs of iron deficiency . Hemoglobin previously 8.0. Concern for blood loss from colon mass. Patient reports dark stools. Labs on August 10, 2024 with hemoglobin slightly low at 11.9. She is receiving infusional iron as needed. Adopted 946455067 Z62.89 8 Patient is adopted and discussed hereditary gene panel. Patient does have family history of her son having bladder cancer. [facility] hereditary panel sent Hypokalemia 89800114 E87 .6 Currently taking for potassium 20 mEq daily. Will follow up labs. Mixed anxi ety and depressive disorder 882472070 F41.8 Patient returns on November 23, 2023. [...] reports depression has improved. Atopic conjunctivitis 23 5905230 H10.12 Conjunctiv itis due to Vectibix. This is improving. Iron defic iency anemia 71470465 D50.9 Receiving infusional iron as needed. Will continue to monitor. Insomnia 325030648 G47.0 0 Patient has had difficulty sleeping for most of her life. She has tried multiple medication s without relief. She is tried Mirtazapin e and lorazepam without improvemen t of insomnia. Discussed trying trazodone instead. Restless legs 71096743 G 25.81 Patient taking Requip for restless legs. Generalized rash 3204643 06 R21 Rash due to Vectibix. This has improved. Atrial fibrillation 4943 6004 I48.91 Patient has been diagnosed with congestive heart failure and atrial fibrillati on. She has been started on Coumadin. She is following with the Coumadin clinic at [facility]. Congestive heart failure 17007887 I50.9 Patient has been diagnosed with congestive heart failure. She has started lasix and is following with a cardiologi st. Cachexia 117804802 R64 Patient has had decreased appetite and weight loss. She is drinking nutritiona l supplement s. Discussed appetite stimulant. Patient previously refused. She has started on Megace. She does not like the taste of Megace. Discussed Megace tablets instead of liquid but patient declines at this time. Will continue to monitor History of deep vein thrombosis 988523063 Z86.718 Patient developed right lower extremity pain [...] repeat venous duplex. Drug therapy finding 309 200889 Z79.01 She continues on Coumadin due to a fib. She is following with the Coumadin clinic at [facility]. Internatio nal normalized ratio above reference range 191024609 R79.1 Patient returns on August 25, 2024. She is on Coumadin for atrial fibrillati on and her INR is elevated. She is going to the Coumadin Clinic for management . INR 8 today. She is going to hold Coumadin and contact Coumadin Clinic for directions today. Denies any bleeding at this time. Diarrhea 11055517 R19.7 Patient with increased diarrhea, nausea, and vomiting for the past 4 days. She is taking Imodium and Lomotil without relief. She has a history of C diff. Will order stool studies today. Will check stool for C diff today. Dehydration 15226985 E86 .0 Patient returns on September 02, [...] Guarantor Name 06/02/2023 [place] Vicky Roblero [id number] Vickytessie Roblero 06/02/2023 1 [employer] (MEDICARE SUPPLEMENT) Vicky Roblero [id number] Vicky Roblero 10/01/2024 2 [employer] Vicky Roblero [id number] Vicky Roblero 06/02/2023 1 MEDICARE B-IN: [employer] Vickytessie Roblero [id number] Vickytessie Roblero 06/02/2023 2 [employer] (MEDICARE SUPPLEMENT) Vicky Roblero [id number] Vicky Roblero 09/02/2024 1 [place] Vicky Roblero [id number] Vickytessie Roblero Notes Date Note Type Note Provider Name and Address Organization Details Recorded Time 07/25/2024 text/html 78 yo F returns for evaluation of metastatic colon cancer. Patient recently seen on February 17, 2023 in the emergency room at [facility] with abdominal pain. Patient reported epigastric pain [...] 8.2 hematocrit 29.0. MCV 67.9. Platelet count 539494. Normal cell differential. Low serum folate of [...] with metastatic colorectal cancer. Discussed chemotherapy with [place] based regimen with 5FU Leucovorin if [...] is following with the Coumadin clinic at [facility]. She is scheduled for [...] Will follow up labs. Hanna Snider PA-C [address], [place], [address], [place] - [facility] [place] [facility] [place] 07/25/2024 11:22:44 08/01/2024 text/html 78 yo F returns for evaluation of metastatic colon cancer. Patient recently seen on February 17, 2023 in the emergency room at [facility] with abdominal pain. Patient reported epigastric pain [...] 8.2 hematocrit 29.0. MCV 67.9. Platelet count 094583. Normal cell differential. Low serum folate of [...] with metastatic colorectal cancer. Discussed chemotherapy with [place] based regimen with 5FU Leucovorin if [...] is following with the Coumadin clinic at [facility]. She is scheduled for [...] study published in September 2022 in the [place] [facility] of combined Avastin therapy with Lonsurf. Phase 3 trial with median overall survival of 10.8 months in combination therapy verses 7.5 months Lonsurf alone. Progression-free survival 5.6 months versus 2.4 months in Lonsurf alone therapy. Tomy King MD [address] [facility], [place], [address], [place] [facility] [place] 08/01/2024 13:08:52 08/10/2024 text/html 78 yo F returns for evaluation of metastatic colon cancer. Patient recently seen on February 17, 2023 in the emergency room at [facility] with abdominal pain. Patient reported epigastric pain [...] 8.2 hematocrit 29.0. MCV 67.9. Platelet count 136943. Normal cell differential. Low serum folate of [...] with metastatic colorectal cancer. Discussed chemotherapy with [place] based regimen with 5FU Leucovorin if [...] is following with the Coumadin clinic at [facility]. She is scheduled for [...] study published in September 2022 in the [place] [facility] of combined Avastin therapy with [...] toxicity. Hanna Snider PA-C [address] , [place], [address], [place] [facility] [place] 08/10/2024 11:13:32 08/25/2024 text/html 78 yo F returns for evaluation of metastatic colon cancer. Patient recently seen on February 17, 2023 in the emergency room at [facility] with abdominal pain. Patient reported epigastric pain [...] 8.2 hematocrit 29.0. MCV 67.9. Platelet count 786769. Normal cell differential. Low serum folate of [...] with metastatic colorectal cancer. Discussed chemotherapy with [place] based regimen with 5FU Leucovorin if [...] is following with the Coumadin clinic at [facility]. She is scheduled for [...] study published in September 2022 in the [place] [facility] of combined Avastin therapy with [...] toxicity. Hanna Snider PA-C [address] , [place], [address], [place] [facility] [place] 08/25/2024 10:43:13 09/02/2024 text/html 78 yo F returns for evaluation of metastatic colon cancer. Patient recently seen on February 17, 2023 in the emergency room at [facility] with abdominal pain. Patient reported epigastric pain [...] 8.2 hematocrit 29.0. MCV 67.9. Platelet count 427823. Normal cell differential. Low serum folate of [...] with metastatic colorectal cancer. Discussed chemotherapy with [place] based regimen with 5FU Leucovorin if [...] is following with the Coumadin clinic at [facility]. She is scheduled for [...] study published in September 2022 in the [place] [facility] of combined Avastin therapy with [...] cycle. Will follow up. Hanna Snider PA-C [address], [place], [address], [facility] - [facility] [place] 09/02/2024 12:55:35 OBGyn Episode No OBEpisode recorded.
--- OUTSIDE RECORDS SUMMARY | 2024-10-21 10:38 | XMS_ITS | Continuity of Care Document ---
Author Organization Unknown Allergies, Adverse Reactions, Alerts Substance Reaction Status tetracycline Active Medications Start Date End Date Medication Signa [id number] HYDROmorphone 2 mg oral tabl et Take 1 tab(s) orally every 4 hours as needed for Moderate Pain 34368876 Wafarin 2.5mg -5mg tablet Ta ke 2.5mg - 5 mg milligrams orally One time a day; M,W,F take 5 mgTu,th, sat, and sun take 2.5 mg 07991510 33976607 Lasix 40 mg oral tablet Take 1 tab(s) orally once a day for 5 day(s) 97879323 42397202 amoxicillin-clav ulanate 500 mg-125 mg oral tablet Take 1 tab(s) orally 3 times a day for 6 day(s); TAKE ONE TABLET BY MOUTH THREE TIMES DAILY FOR SIX DAYS -- FINISH ALL MEDICINE -- 55558755 atropine-dipheno xylate 0.025 mg-2.5 mg oral tablet Take 1 tab(s) orally 4 times a day; TAKE 1 TABLET BY MOUTH 4 TIMES A DAY NEEDED 78369305 azithromycin 250 mg oral tab let Take 1 tab(s) orally Every morning; TAKE ONE TABLET BY MOUTH EVERY DAY FOR FOUR DAYS -- FINISH ALL MEDICINE -- start ON DAY 2 of therapy 26341185 DULoxetine 30 mg oral delayed release capsule Take 30 milligrams orally Everyday; TAKE 1 CAPSULE BY MOUTH EVERY DAY 08536483 famotidine 20 mg oral tablet Take 1 tab(s) orally 2 times a day; TAKE 1 TABLET BY MOUTH 2 TIMES A DAY 93097208 folic acid 1 mg oral tablet Take 1 tab(s) orally once a day 72511475 Jantoven 1 mg oral tablet Ta ke 1 tab(s) orally Everyday; TAKE 1 TABLET BY MOUTH EVERY DAY OR DIRECTED 76614164 LORazepam 1 mg oral tablet T andreas 1 tab(s) orally 3 times a day as needed for Anxiety; TAKE 1 TABLET BY MOUTH 3 TIMES A DAY NEEDED FOR NAUSEA 10246548 magnesium oxide 400 mg oral capsule Take 1 cap(s) orally once a day 74006419 metoclopramide 5 mg oral tab let Take 1 tab(s) orally 3 times a day; TAKE 1 TABLET BY MOUTH 3 TIMES A DAY NEEDED 23747924 morphine 15 mg oral tablet T andreas 15 milligrams orally every 3 to 4 hours as needed for Severe Pain; TAKE 1 TABLET BY MOUTH EVERY 3 TO 4 HOURS NEEDED 08029858 ondansetron 8 mg oral tablet, disintegrating 1 tab(s) orally 3 times a day; DISSOLVE 1 TABLET IN MOUTH 3 TIMES A DAY 99653584 oxycodone-acetam inophen 5 mg-325 mg tablet 5-325 mg tablet Take 5-325 milligrams orally every 6 hours as needed for Moderate Pain; TAKE ONE TABLET BY MOUTH EVERY 6 HOURS NEEDED FOR PAIN FOR 5 DAYS MAY CAUSE DROWSINESS 68088091 potassium chlori de 20 mEq oral tablet, extended release Take 1 tab(s) orally Every day; TAKE 1 TABLET BY MOUTH EVERY DAY DIRECTED Problems Type Code Description Effective Start Effective End Onset/Exacerbation Date 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 01638199 86550831 Other J18.9 Pneumonia` unspecified organism 71618198 24504788 Other E87.20 Acidosis, unspecified 97352388 92256538 Other J96.01 Acute respirator y failure with hypoxia 63656645 24957605 Other N17.9 Acute kidney failure` unspecified 10560185 09224760 Other I48.0 Paroxysmal atria l fibrillation 47736068 86554112 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) 80526723 71676376 Other M62.81 Muscle weakness (generalized) 26310107 74062582 Other F32.A Depression` unspecified 77364056 03795701 Other F41.9 Anxiety disorder ` unspecified 62659812 87964474 Other K21.9 Gastro-esophagea l reflux disease without esophagitis 18547610 64964753 Other Z99.81 Dependence on supplemental oxygen 63096934 79033573 Other Z79.2 retirement (curre nt) use of antibiotics 11658248 77123824 Other 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
== END 2024-10-21 14:00 ==
LOC: ACC 10:35
PROVIDERS: PCP Nurse Practitioner Family; Visit Provider Physician Assistant
DX: Z79.01 Long term (current) use of anticoagulants (principal); Z86.711 Personal history of pulmonary embolism
CPT/HCPCS: 85610; 99211; G0463

== ENCOUNTER 2024-11-01 10:13 | Outpatient (CLI) | payer MEDICARE, SELFPAY ==
--- OUTSIDE RECORDS SUMMARY | 2024-09-30 07:04 | XMS_ITS | Continuity of Care Document ---
Author Organization [facility] Phone Care Team Providers Care Yield Engineer Name Role Phone CHRISTOS HINOJOSA Primary Attending CHRISTOS HINOJOSA Admitting CARLOS A COATS Primary Care Unavailable ALLERGIES AND ADVERSE REACTIONS ALLERGIES AND ADVERSE REACTIONS Code System Allergy Substance Adverse Reaction Date Reaction (Severity) [place] [id number] RXNorm TETRACYCLINE Rash (Moderate) Shock active [id number] on June 10, 2024 4:15:44 AM UTC RESULTS Patient: KAREN HESS Date of : September [birth year] 4 LABORATORY RESULTS ORDER 100: CBC AUTO W DIFF ( LOINC: 54269-5) ORDER DATE: September 02, 2024 4:08:00 PM UTC Specimen Source: EDTA Specimen Type: Blood specime n with EDTA PERFORMING LAB: [address] [id number] Result Comment: Final Result Date: September 02, 2024 8:08:00 PM UT (TECH: [employer]) LOINC TEST FLAG RESULT REFERENCE RANGE UPDA ELISHA BY 6690-2 Leukocytes [#/volume] in Blood by Automated count LL 1.2 K/ul 4.0 K/ul - 10.5 K/ul September 02, 2024 8:08:00 PM UTC (TECH: [employer]) 789-8 Erythrocytes [#/volume] in Blood by Automated count L 3.4 M/mm3 4.2 M/mm3 - 6.4 M/mm3 September 02, 2024 8:08:00 PM UTC (TECH: [facility]) 718-7 Hemoglobin [Mass/volume] in Blood L 9.6 gm/dl 12.5 gm/dl - 16.0 gm/dl September 02, 2024 8:08:00 PM UTC (TECH: [employer]) 10866-5 Hematocrit [Volume Fraction] of Blood L 28.7 % 37.0 % - 47.0 % September 02, 2024 8:08:00 PM UTC (TECH: [facility]) 787-2 Erythrocyte mean corpuscular volume [Entitic volume] by Automated count N 85.4 fl 78 fl - 100 fl September 02, 2024 8:08:00 PM UTC (TECH: [facility]) 785-6 Erythrocyte mean corpuscular hemoglobin [Entitic mass] by Automated count N 28.6 pg 27 pg - 31 pg September 02, 2024 8:08:00 PM UTC (TECH: [facility]) 786-4 Erythrocyte mean corpuscular hemoglobin concentration [Mass/volume] by Automated count N 33.4 g/dl 32 g/dl - 36 g/dl September 02, 2024 8:08:00 PM UTC (TECH: [facility]) 14834-7 Erythrocyte distribution width [Ratio] H 15.9 % 11.5 % - 14.0 % September 02, 2024 8:08:00 PM UTC (TECH: [facility]) 777-3 Platelets [#/volume] in Blood by Automated count N 213 K/ul 150 K/ul - 450 K/ul September 02, 2024 8:08:00 PM UTC (TECH: [employer]) 33901-3 Platelet mean volume [Entitic volume] in Blood by Automated count H 9.6 fl 6 fl - 9.5 fl September 02, 2024 8:08:00 PM UTC (TECH: [facility]) 21489-4 Neutrophils/100 leukocytes in Blood N 57.7 % 43 % - 65 % September 02 8:08:00 PM UTC (TECH: [facility]) 736-9 Lymphocytes/100 leukocytes in Blood by Automated count N 25.4 % 20.5 % - 45.5 % September 02, 2024 8:08:00 PM UTC (TECH: [facility]) 5905-5 Monocytes/100 leukocytes in Blood by Automated count H 15.3 % 5.5 % - 11.7 % September 02, 2024 8:08:00 PM UTC (TECH: [facility]) 713-8 Eosinophils/100 leukocytes in Blood by Automated count L 0.0 % 0.9 % - 2.9 % September 02, 2024 8:08:00 PM UTC (TECH: [facility]) 706-2 Basophils/100 leukocytes in Blood by Automated count N 0.8 % 0.2 % - 1.0 % September 02, 2024 8:08:00 PM UTC (TECH: [employer]) 40528-1 Immature granulocytes/100 leukocytes in Blood by Automated count N 0.8 % 0.0 % - 0.8 % September 02, 2024 8:08:00 PM UTC (TECH: [employer]) 49522-5 Nucleated cells [#/volume] in Blood N 0.0 % September 02 8:08:00 PM UTC (TECH: [employer]) 15706-1 Neutrophils [#/volume] in Blood L 0.7 K/uL 2.2 K/uL - 4.8 K/uL September 02, 2024 8:08:00 PM UTC (TECH: [employer]) 731-0 Lymphocytes [#/volume] in Blood by Automated count L 0.3 CELL/MCL 1.3 CELL/MCL - 2.9 CELL/MCL September 02, 2024 8:08:00 PM UTC (TECH: [employer]) 742-7 Monocytes [#/volume] in Blood by Automated count L 0.2 CELL/MCL 0.3 CELL/MCL - 0.8 CELL/MCL September 02, 2024 8:08:00 PM UTC (TECH: [employer]) 711-2 Eosinophils [#/volume] in Blood by Automated count N 0.0 CELL/MCL 0 CELL/MCL - 0.2 CELL/MCL September 02, 2024 8:08:00 PM UTC (TECH: [employer]) 704-7 Basophils [#/volume] in Blood by Automated count N 0.0 CELL/MCL 0.0 CELL/MCL - 1.0 CELL/MCL September 02, 2024 8:08:00 PM UT (TECH: [employer]) 53822-6 Immature granulocytes [#/volume] in Blood N 0.01 K/ul September 02 8:08:00 PM UTC (TECH: [employer]) 34350-8 Nucleated cells [#/volume] in Blood N 0.00 K/uL September 02 8:08:00 PM UT (TECH: [employer]) 77771-2 Manual Differential panel - Blood N YES September 02, 2024 8:08:00 PM UTC (TECH: [facility]) 25227-3 Neutrophils.segmente d/100 leukocytes in Blood by Automated count N 54 % 42 % - 76 % September 02, 2024 8:08:00 PM UTC (TECH: [facility]) 40476-2 Neutrophils.band form/100 leukocytes in Blood by Automated count N 8 % 0 % - 8 % September 02, 2024 8:08:00 PM UTC (TECH: [facility]) 736-9 Lymphocytes/100 leukocytes in Blood by Automated count N 16 % 15 % - 41 % September 02, 2024 8:08:00 PM UTC (TECH: [facility]) 5905-5 Monocytes/100 leukocytes in Blood by Automated count H 20 % 2 % - 9 % September 02, 2024 8:08:00 PM UTC (TECH: [facility]) 713-8 Eosinophils/100 leukocytes in Blood by Automated count N 2 % 0 % - 3 % September 02, 2024 8:08:00 PM UTC (TECH: [facility]) 778-1 Platelets [#/volume] in Blood by Manual count N ADEQUATE ADEQUATE September 02, 2024 8:08:00 PM UTC (TECH: [facility]) 9317-9 Platelet adequacy [Presence] in Blood by Light microscopy N NORMAL NORMAL September 02 8:08:00 PM UTC (TECH: [facility]) 82239-5 Erythrocytes [Morphology] in Blood by Automated count N NORMAL NORMAL September 02, 2024 8:08:00 PM UTC (TECH: [facility]) ORDER 200: COMP METABOLIC PA BEBETO (LOINC: 49039-9) ORDER DATE: September 02, 2024 4:08:00 PM UTC Specimen Source: PLASMA Specimen Type: Plasma specim en PERFORMING LAB: [address] [id number] Result Comment: Final Result Date: September 02, 2024 6:43:00 PM UTC (TECH: [facility]) LOINC TEST FLAG RESULT REFERENCE RANGE UPDA ELISHA BY 2951-2 Sodium [Moles/volume ] in Serum or Plasma L 131 mmol/L 136 mmol/L - 145 mmol/L September 02, 2024 6:31:00 PM UTC (TECH: [facility]) 2823-3 Potassium [Moles/vol ume] in Serum or Plasma N 4.0 mmol/L 3.6 mmol/L - 5.0 mmol/L September 02, 2024 6:31:00 PM UTC (TECH: TGD) 2074-0 Chloride [Moles/volu me] in Serum or Plasma N 99 mmol/L 98 mmol/L - 107 mmol/L September 02, 2024 6:31:00 PM UTC (TECH: [facility]) 2027-9 Carbon dioxide, tota l [Moles/volume] in Serum or Plasma L 18.6 mmol/L 21.0 mmol/L - 32.0 mmol/L September 02, 2024 6:31:00 PM UTC (TECH: TGD) 11457-7 Anion gap in Blood N 17.4 A pril 2024 6:31:00 PM UTC (TECH: TGD) 2345-7 Glucose [Mass/volume ] in Serum or Plasma H 145 mg/dl 70 mg/dl - 120 mg/dl September 02, 2024 6:31:00 PM UTC (TECH: [facility]GD) 6299-2 Urea nitrogen [Mass/volume] in Blood H 36 mg/dL 7 mg/dL - 18 mg/dL September 02, 2024 6:31:00 PM UTC (TECH: [facility]GD) 42033-4 Creatinine [Moles/vo lume] in Blood H 1.5 mg/dL 0.6 mg/dL - 1.3 mg/dL September 02, 2024 6:31:00 PM UTC (TECH: TGD) 80895-1 Glomerular filtratio n rate/1.73 sq M.predicted by Creatinine-based formula (MDRD) L 36 mlpermin 60 mlpermin September 02, 2024 6:31:00 PM UTC (TECH: TGD) 29504-0 Osmolality of Serum or Plasma by calculated by sum of electrolytes N 284 mosm/kg 275 mosm/kg - 301 mosm/kg September 02, 2024 6:31:00 PM UTC (TECH: TGD) 2885-2 Protein [Mass/volume ] in Serum or Plasma L 5.9 g/dl 6.4 g/dl - 8.2 g/dl September 02, 2024 6:43:00 PM UTC (TECH: TGD) 1751-7 Albumin [Mass/volume ] in Serum or Plasma L 2.1 g/dl 3.4 g/dl - 5.0 g/dl September 02, 2024 6:43:00 PM UT (TECH: [employer]) 2336-6 Globulin [Mass/volum e] in Serum N 3.8 September 02, 2024 6:43:00 PM [facility] (TECH: [employer]) 1759-0 Albumin/Globulin [Ma ss Ratio] in Serum or Plasma L 0.6 0.7 - 2 September 02, 2024 6:43:00 PM [facility] (TECH: [employer]) 03791-0 Calcium [Mass/volume ] in Serum or Plasma L 8.1 mg/dl 8.5 mg/dl - 10.5 mg/dl September 02, 2024 6:31:00 PM [facility] (TECH: [employer]) 1975-2 Bilirubin.total [Mass/volume] in Serum or Plasma H 1.10 mg/dL 0.10 mg/dL - 1.00 mg/dL September 02, 2024 6:43:00 PM [facility] (TECH: [employer]) 1920-8 Aspartate aminotrans ferase [Enzymatic activity/volume] in Serum or Plasma N 13 U/L 0 U/L - 37 U/L September 02, 2024 6:43:00 PM UT (TECH: [employer]) 1742-6 Alanine aminotransfe rase [Enzymatic activity/volume] in Serum or Plasma N 13 U/L 0 U/L - 65 U/L September 02, 2024 6:43:00 PM [facility] (TECH: [employer]) 6768-6 Alkaline phosphatase [Enzymatic activity/volume] in Serum or Plasma H 188 U/L 46 U/L - 116 U/L September 02, 2024 6:43:00 PM [facility] (TECH: TGD) LABORATORY NARRATIVE RESULTS Information is not available RADIOLOGY RESULTS Information is not available PATHOLOGY NARRATIVE RESULTS Information is not available MICROBIOLOGY RESULTS No Micro Labs/Results Exist for Patient BLOOD ADMIN RESULTS Information is not available MEDICATIONS HOME MEDICATIONS Status RXNORM NDC Medication Dose Route Frequency Dates Comments Reported By Updated By Active [id number] 92190 bisacodyl (DULCOLAX) EC 10.0 MG ORAL DAILYPRN Last Dose: [id number] on September 02, 2024 4:11:12 PM [facility] Active 372255 983703 69060 famotidine (PEPCID) 10.0 MG ORAL DAILYPRN Last Dose: [id number] on September 02, 2024 4:11:12 PM UT Active 511260 393245 22945 folic acid (FOLATE) 1.0 MG ORAL DAILY Last Dose: [id number] on September 02, 2024 4:11:13 PM [facility] Active 934504 068442 73121 HYDROcodone- Acetaminophe n Tablet 5-325 MG 1.0 TAB ORAL Q6HPRN Last Dose: [id number] on September 02, 2024 4:11:13 PM [facility] Active 332431 53521 magnesium oxide (MAG-OX) 400 MG 400.0 MG ORAL DAILY Last Dose: [id number] on September 02, 2024 4:11:13 PM [facility] Active 459731 469062 57705 metoprolol succin (TOPROL XL) 50.0 MG ORAL BEDTIME Last Dose: [id number] on September 02, 2024 4:11:13 PM [facility] Active 999739 539877 46020 ondansetron (ZOFRAN) 4.0 MG ORAL Q6HPRN Last Dose: [id number] on September 02, 2024 4:11:13 PM [facility] Active 546732 481469 13464 Potassium Chloride ER Capsule Extended Release 10 MEQ 10.0 MEQ ORAL DAILY Last Dose: [id number] on September 02, 2024 4:11:14 PM [facility] Active 819603 328842 41591 rOPINIRole HCl Tablet 2 MG 2.0 MG ORAL BEDTIME Last Dose: [id number] on September 02, 2024 4:11:14 PM [facility] Active 282308 282656 89643 Warfarin Sodium Oral Tablet 2.5 MG 0.5 TAB ORAL DAILY Last Dose: [id number] on September 02, 2024 4:11:14 PM [facility] DISCHARGE MEDICATIONS Status RXNORM [facility] [place] Medication Dose Route Frequency Dates Comments Physician Updated By No Discharge Medication Info rmation Available INPATIENT MEDICATIONS Status RXNORM [facility] [place] Medication Dose Route Frequency Rat e Quantity Dates Comments Physician Updated [facility] [id number] 5613 000 ondansetron (ZOFRAN) INJ 4 MG/2 ML SOLN 4.0 MG INTRAV ENOUS ONE TIME ONLY (SCHEDULED DOSE) Start: September 02, 2024 1:59:0 0 PM UT End: September 02, 2024 1:59:0 0 PM UTC [facility] on September 02, 2024 2:00:00 PM UTC Discont inued [id number] 8237 3073 912 famotidine (PEPCID) 20 MG/2ML SOLN 20.0 MG INTRAV ENOUS ONE TIME ONLY (SCHEDULED DOSE) Start: September 02, 2024 1:59:0 0 PM UTC End: September 02, 2024 1:59:0 0 PM UTC [facility] on September 02, 2024 2:01:00 PM UTC Discont inued [id number] 3396 5613 000 ondansetron (ZOFRAN) INJ 4 MG/2 ML SOLN 8.0 MG INTRAV ENOUS ONE TIME ADMINISTRA TION (UNSCHEDUL ED) Start: September 02, 2024 2:32:0 0 PM UTC End: September 02, 2024 3:45:4 5 PM UT IRLANDA Barber [id number] on September 02, 2024 3:45:00 PM UTC Discont inued [id number] 6820 3073 912 famotidine (PEPCID) 20 MG/2ML SOLN 20.0 MG INTRAV ENOUS ONE TIME ADMINISTRA TION (UNSCHEDUL ED) Start: September 02, 2024 2:33:0 0 PM UTC End: September 02, 2024 3:45:5 9 PM UT IRLANDA Barber [id number] on September 02, 2024 3:45:00 PM UTC Discont inued 0061147 4325 8004 904 sodium chloride 0.9% SOLN 1000. 0 ML IV CONTIN UOUS ONE TIME ADMINISTRA TION (UNSCHEDUL ED) 999.0 ML/HR Start: September 02, 2024 2:32:0 0 PM UTC End: September 02, 2024 3:34:1 3 PM UT IRLANDA Barber [id number] on September 02, 2024 3:34:00 PM UTC SOCIAL HISTORY SOCIAL HISTORY SNOMED-CT Social History Element Description Effective Dates Offered Cessation Comment UpdatedBy [id number] Historical Tobacco smoking status Unknown If Ever Smoked [id number] on June 10, 2024 6:41:59 AM UT [id number] Historical Tobacco smoking status Never Smoked [id number] on November 03, 2023 7:23:45 PM UT [id number] Historical Tobacco smoking status Former Smoker [id number] on May 20, 2023 4:14:02 PM UTC SOCIAL HISTORY - Gender Sex: Female SOCIAL HISTORY - Sexual Behavior Sexual Orientation Gender Identity SNOMED-CT Description SNOMED-CT Description Activity Level No of Partners Partner Type UpdatedBy [id number] Female [id number] on April 07, 2023 1:59:13 AM UT Comment : SOCIAL HISTORY - Status : status i nformation is not available Intention in Next Year: intention information is not available VITAL SIGNS PATIENT VITAL SIGNS This section displays the mo st recent value for each vital sign as of September 30, 2024 11:04:12 AM UT Loinc Code Vital Sign Activity Date Result Updated By 8302-2 Body height September 02, 2024 4:12:48 PM UTC 162.56 cm (64.0 in) [id number] on September 02, 2024 4:12:48 [place] [address]-1 Body mass index (BMI ) [Ratio] September 02, 2024 4:12:48 PM UTC 33.528 kg/m2 [id number] on September 02, 2024 4:12:48 PM UT 3140-1 Body Surface Area Derived From Formula September 02, 2024 4:12:48 PM UTC 1.9365 m2 [id number] on September 02, 2024 4:12:48 PM UT 8310-5 Body temperature September 02, 2024 3:25:00 PM UTC 97.2 [degF] [id number] on September 02, 2024 4:28:[place] [address]-3 Body weight Measured September 02 4:12:48 PM UTC 88.6 kg (195.0 lb) [id number] on September 02, 2024 4:12:48 PM UT 8462-4 Diastolic blood pressure September 02, 2024 5:35:00 PM UTC 66.0 mm[Hg] [id number] on September 02, 2024 5:35:14 PM UT 8867-4 Heart rate September 02, 2024 5:35:00 PM UT 72 /min [id number] on September 02, 2024 5:35:[place] [address]-4 Oxygen saturation in Arterial blood by Pulse oximetry September 02, 2024 3:25:00 PM UT 95.0 % [id number] on September 02, 2024 4:28:47 PM [facility] 9279-1 Respiratory rate September 02, 2024 5:35:00 PM UTC 18 /min [id number] on September 02, 2024 5:35:14 PM [facility] 8480-6 Systolic blood pressure September 02, 2024 5:35:00 PM UTC 130.0 mm[Hg] [id number] on September 02, 2024 5:35:14 PM [facility] PEDIATRIC GROWTH CHART - VITAL SIGNS This section displays Head C ircumference Percentile, Weight for Length Percentile and BMI Percentile Loinc Code Pediatric Measure Age (Months) Result Updat ed By No Pediatric Growth Chart Pe rcentile Information Available. HEALTH CONCERNS Problems Concern Status Health Concern problem infor mation not available. Smoking Status Status Years Used Consumed packs p er day Health Concern smoking histo ry information not available. Family History Concern Status Health Concern family histor y information not available. ENCOUNTERS ENCOUNTER INFORMATION Reason for Visit Not Specified Admission September 02, 2024 3:12:00 PM [place] [id number] [facility] [id number] Discharge September 28, 2024 4:53:00 PM [facility] DI SCHARGED TO HOME OR SELF CARE ENCOUNTER DIAGNOSES Notes information is not benito ilable. Code System Diagnosis Onset Date Diagnosis information is not available. ABSTRACT DIAGNOSES Code System Diagnosis Updated By Z51.11 ICD10 ENCOUNTER FOR AN TINEOPLASTIC CHEMOTHERAPY [id number] on September 30, 2024 11:03:54 AM [facility] E86.0 ICD10 DEHYDRATION [id number] on September 30, 2024 11:03:54 AM [facility] R11.0 ICD10 NAUSEA [id number] on September 30, 2024 11:03:54 AM [facility] E86.0 ICD10 DEHYDRATION [id number] on September 30, 2024 11:03:54 AM [facility] R11.0 ICD10 NAUSEA [id number] on September 30, 2024 11:03:54 AM [facility] Z88.1 ICD10 ALLERGY STATUS T O OTHER ANTIBIOTIC AGENTS [id number] on September 30, 2024 11:03:54 AM [facility] CARE TEAM Care Yield Engineer Role CHRISTOS HINOJOSA Primary Attending CHRISTOS HINOJOSA Admitting CARLOS A COATS Primary Care 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 Role on Team Status Start Date End Date Update d By PAULY Falcon PCP normal August 25, 2024 12:56:10 PM [facility] September 28, 2024 4:53:00 PM [facility] [id number] on August 25, 2024 12:56:10 PM [facility] ASHISH MG Attending normal August 25, 2024 12:56:10 PM [facility] September 28, 2024 4:53:00 PM [facility] [id number] on August 25, 2024 12:56:10 PM [facility] ASHISH MG Admitting normal August 25, 2024 12:56:10 PM [facility] September 28, 2024 4:53:00 PM [facility] [id number] on August 25, 2024 12:56:10 PM [facility]
--- OUTSIDE RECORDS SUMMARY | 2024-10-30 13:25 | XMS_ITS | Continuity of Care Document ---
Author Organization [facility] Phone Care Team Providers Care [employer] Work Supervisor Name Role Phone TANI WIN Admitting TANI WIN Primary Attending CARLOS A COATS Unavailable Unavailable CARLOS A COATS Primary Care Unavailable ALLERGIES AND ADVERSE REACTIONS ALLERGIES AND ADVERSE REACTIONS Code System Allergy Substance Adverse Reaction Date Reaction (Severity) [place] [id number] RXNorm TETRACYCLINE Rash (Moderate) Shock active [id number] on October 28, 2024 4:17:16 AM UT ASSESSMENTS Right flank pain ; Diverticulitis ; Acute kidney injury ; Acute cystitis ; Paroxysmal atrial fibrillation ; Primary malignant neoplasm of colon ; PROBLEMS PATIENT PROBLEMS Code Description/Comments Category Status Upda elisha By [id number] Right flank pain active [id number] on October 28, 2024 4:04:01 AM UT [id number] Diverticulitis active [id number] on October 28, 2024 4:04:11 AM UT [id number] Acute kidney injury active [id number] on October 28, 2024 4:04:32 AM UT [id number] Acute cystitis active [id number] on October 28, 2024 3:39:55 PM UT [id number] Paroxysmal atrial fibrillation activ e [id number] on October 28, 2024 3:39:55 PM UT [id number] Primary malignant neoplasm of colon active [id number] on October 28, 2024 3:39:55 PM UT RESULTS Patient: KAREN HESS Date of : [birth year] 4 LABORATORY RESULTS ORDER 100: CBC AUTO W DIFF ( LOINC: 00609-5) ORDER DATE: October 27, 2024 10:51:00 PM UTC Specimen Source: EDTA Specimen Type: Blood specime n with EDTA PERFORMING LAB: [address] [id number] Result Comment: Final Result Date: October 27, 2024 11:40:00 PM UTC (TECH: Eventpig) LOINC TEST FLAG RESULT REFERENCE RANGE UPDA ELISHA BY 6690-2 Leukocytes [#/volume] in Blood by Automated count H 13.1 K/ul 4.0 K/ul - 10.5 K/ul October 27, 2024 11:40:00 PM UTC (TECH: Eventpig) 789-8 Erythrocytes [#/volume] in Blood by Automated count L 3.5 M/mm3 4.2 M/mm3 - 6.4 M/mm3 October 27, 2024 11:40:00 PM UTC (TECH: Eventpig) 718-7 Hemoglobin [Mass/volume] in Blood L 10.2 gm/dl 12.5 gm/dl - 16.0 gm/dl October 27, 2024 11:40:00 PM UTC (TECH: Eventpig) 88589-8 Hematocrit [Volume Fraction] of Blood L 31.8 % 37.0 % - 47.0 % October 27, 2024 11:40:00 PM UTC (TECH: Eventpig) 787-2 Erythrocyte mean corpuscular volume [Entitic volume] by Automated count N 91.9 fl 78 fl - 100 fl October 27, 2024 11:40:00 PM UTC (TECH: Eventpig) 785-6 Erythrocyte mean corpuscular hemoglobin [Entitic mass] by Automated count N 29.5 pg 27 pg - 31 pg October 27, 2024 11:40:00 PM UTC (TECH: Eventpig) 786-4 Erythrocyte mean corpuscular hemoglobin concentration [Mass/volume] by Automated count N 32.1 g/dl 32 g/dl - 36 g/dl October 27, 2024 11:40:00 PM UTC (TECH: Eventpig) 28078-8 Erythrocyte distribution width [Ratio] H 14.2 % 11.5 % - 14.0 % October 27, 2024 11:40:00 PM UTC (TECH: Eventpig) 777-3 Platelets [#/volume] in Blood by Automated count N 234 K/ul 150 K/ul - 450 K/ul October 27, 2024 11:40:00 PM UTC (TECH: Eventpig) 54523-0 Platelet mean volume [Entitic volume] in Blood by Automated count N 9.2 fl 6 fl - 9.5 fl October 27, 2024 11:40:00 PM UTC (TECH: Eventpig) 77985-9 Neutrophils/100 leukocytes in Blood H 82.3 % 43 % - 65 % October 27, 2024 11:40:00 PM UTC (TECH: ME) 736-9 Lymphocytes/100 leukocytes in Blood by Automated count L 6.7 % 20.5 % - 45.5 % October 27, 2024 11:40:00 PM UTC (TECH: Eventpig) 5905-5 Monocytes/100 leukocytes in Blood by Automated count N 7.2 % 5.5 % - 11.7 % October 27, 2024 11:40:00 PM UTC (TECH: Eventpig) 713-8 Eosinophils/100 leukocytes in Blood by Automated count H 3.1 % 0.9 % - 2.9 % October 27, 2024 11:40:00 PM UTC (TECH: Eventpig) 706-2 Basophils/100 leukocytes in Blood by Automated count N 0.3 % 0.2 % - 1.0 % October 27, 2024 11:40:00 PM UTC (TECH: Eventpig) 92816-6 Immature granulocytes/100 leukocytes in Blood by Automated count N 0.4 % 0.0 % - 0.8 % October 27, 2024 11:40:00 PM UTC (TECH: Eventpig) 72940-4 Nucleated cells [#/volume] in Blood N 0.0 % October 27, 2024 11:40:00 PM UTC (TECH: Eventpig) 76311-4 Neutrophils [#/volume] in Blood H 10.7 K/uL 2.2 K/uL - 4.8 K/uL October 27, 2024 11:40:00 PM UTC (TECH: Eventpig) 731-0 Lymphocytes [#/volume] in Blood by Automated count L 0.9 CELL/MCL 1.3 CELL/MCL - 2.9 CELL/MCL October 27, 2024 11:40:00 PM UTC (TECH: Eventpig) 742-7 Monocytes [#/volume] in Blood by Automated count H 0.9 CELL/MCL 0.3 CELL/MCL - 0.8 CELL/MCL October 27, 2024 11:40:00 PM UTC (TECH: Eventpig) 711-2 Eosinophils [#/volume] in Blood by Automated count H 0.4 CELL/MCL 0 CELL/MCL - 0.2 CELL/MCL October 27, 2024 11:40:00 PM UTC (TECH: ME) 704-7 Basophils [#/volume] in Blood by Automated count N 0.0 CELL/MCL 0.0 CELL/MCL - 1.0 CELL/MCL October 27, 2024 11:40:00 PM UTC (TECH: ME) 70221-2 Immature granulocytes [#/volume] in Blood N 0.05 K/ul October 27, 2024 11:40:00 PM UTC (TECH: ME) 14529-0 Nucleated cells [#/volume] in Blood N 0.00 K/uL October 27, 2024 11:40:00 PM UTC (TECH: ME) 73550-3 Manual Differential panel - Blood N NO October 27, 2024 11:40:00 PM UTC (TECH: ME) ORDER 200: COMP METABOLIC PA BEBETO (LOINC: 68841-0) ORDER DATE: October 27, 2024 10:51:00 PM UTC Specimen Source: PLASMA Specimen Type: Plasma specim en PERFORMING LAB: [address] [id number] Result Comment: Final Result Date: October 27, 2024 11:57:00 PM UT (TECH: AY) LOINC TEST FLAG RESULT REFERENCE RANGE UPDA ELISHA BY 2951-2 Sodium [Moles/volume ] in Serum or Plasma L 129 mmol/L 136 mmol/L - 145 mmol/L October 27, 2024 11:57:00 PM UTC (TECH: AY) 2823-3 Potassium [Moles/volume] in Serum or Plasma H 5.1 mmol/L 3.6 mmol/L - 5.0 mmol/L October 27, 2024 11:57:00 PM UTC (TECH: AY) 2075-0 Chloride [Moles/volume] in Serum or Plasma L 93 mmol/L 98 mmol/L - 107 mmol/L October 27, 2024 11:57:00 PM UTC (TECH: AY) 2027-9 Carbon dioxide, tota l [Moles/volume] in Serum or Plasma N 29.3 mmol/L 21.0 mmol/L - 32.0 mmol/L October 27, 2024 11:57:00 PM UTC (TECH: AY) 19345-0 Anion gap in Blood N 11.8 M 2024 11:57:00 PM [facility] (TECH: AY) 2345-7 Glucose [Mass/volume ] in Serum or Plasma H 165 mg/dl 70 mg/dl - 120 mg/dl October 27, 2024 11:57:00 PM [facility] (TECH: AY) 6299-2 Urea nitrogen [Mass/volume] in Blood H 22 mg/dL 7 mg/dL - 18 mg/dL October 27, 2024 11:57:00 PM [facility] (TECH: AY) 49619-4 Creatinine [Moles/volume] in Blood H 1.7 mg/dL 0.6 mg/dL - 1.3 mg/dL October 27, 2024 11:57:00 PM [facility] (TECH: AY) 56673-8 Glomerular filtratio n rate/1.73 sq M.predicted by Creatinine-based formula (MDRD) L 31 mlpermin 60 mlpermin October 27, 2024 11:57:00 PM [facility] (TECH: AY) 34165-0 Osmolality of Serum or Plasma by calculated by sum of electrolytes N 276 mosm/kg 275 mosm/kg - 301 mosm/kg October 27, 2024 11:57:00 PM [facility] (TECH: AY) 2885-2 Protein [Mass/volume ] in Serum or Plasma N 7.3 g/dl 6.4 g/dl - 8.2 g/dl October 27, 2024 11:57:00 PM [facility] (TECH: AY) 1751-7 Albumin [Mass/volume ] in Serum or Plasma L 2.5 g/dl 3.4 g/dl - 5.0 g/dl October 27, 2024 11:57:00 PM [facility] (TECH: AY) 2336-6 Globulin [Mass/volum e] in Serum N 4.8 October 27, 2024 11:57:00 PM [facility] (TECH: AY) 1759-0 Albumin/Globulin [Ma ss Ratio] in Serum or Plasma L 0.5 0.7 - 2 October 27, 2024 11:57:00 PM [facility] (TECH: AY) 99250-6 Calcium [Mass/volume ] in Serum or Plasma N 9.2 mg/dl 8.5 mg/dl - 10.5 mg/dl October 27, 2024 11:57:00 PM UTC (TECH: AY) 1975-2 Bilirubin.total [Mass/volume] in Serum or Plasma N 0.70 mg/dL 0.10 mg/dL - 1.00 mg/dL October 27, 2024 11:57:00 PM UTC (TECH: AY) 1920-8 Aspartate aminotransferase [Enzymatic activity/volume] in Serum or Plasma H 198 U/L 0 U/L - 37 U/L October 27, 2024 11:57:00 PM UTC (TECH: AY) 1742-6 Alanine aminotransferase [Enzymatic activity/volume] in Serum or Plasma N 22 U/L 0 U/L - 65 U/L October 27, 2024 11:57:00 PM UTC (TECH: AY) 6768-6 Alkaline phosphatase [Enzymatic activity/volume] in Serum or Plasma H 245 U/L 46 U/L - 116 U/L October 27, 2024 11:57:00 PM UTC (TECH: AY) ORDER 300: URINALYSIS REFLEX MICROSCOPIC (LOINC: 56341-7) ORDER DATE: October 27, 2024 10:51:00 PM UT Specimen Source: URINE Specimen Type: Urine specime n PERFORMING LAB: [address] [id number] Result Comment: Final Result Date: October 28, 2024 1:09:00 AM UT (TECH: Eventpig) LOINC TEST FLAG RESULT REFERENCE RANGE UPDA ELISHA BY 5778-6 Color of Urine N DRK YELLOW YELLOW October 28, 2024 1:09:00 AM UT (TECH: ME) 5767-9 Appearance of Urine N HAZY CLEAR October 28, 2024 1:09:00 AM UT (TECH: ME) 5792-7 Glucose [Mass/volume] in Urine by Test strip N norm NORMAL October 28, 2024 1:09:00 AM UT (TECH: ME) 88917-5 Bilirubin.total [Mass/volume] in Urine by Automated test strip 1 NEGATIVE October 28, 2024 1:09:00 AM UT (TECH: ME) 5797-6 Ketones [Mass/volume] in Urine by Test strip 5 NEGATIVE October 28, 2024 1:09:00 AM UT (TECH: ME) 2965-2 Specific gravity of Urine H 1.025 1.016 - 1.022 October 28, 2024 1:09:00 AM UTC (TECH: ME) 06421-5 Erythrocytes [#/volume] in Urine by Automated test strip N 10 NEGATIVE October 28, 2024 1:09:00 AM UTC (TECH: ME) 58135-8 pH of Urine by Automated test strip N 5 5 - 9 October 28 1:09:00 AM UTC (TECH: ME) 01490-8 Protein [Presence] in Urine by Test strip 30 NEGATIVE October 28, 2024 1:09:00 AM UTC (TECH: ME) 19319-1 Urobilinogen [Mass/volume] in Urine by Automated test strip 1 NORMAL October 28, 2024 1:09:00 AM UTC (TECH: ME) 17656-7 Nitrate [Presence] in Urine N NEGATIVE NEGATIVE October 28, 2024 1:09:00 AM UTC (TECH: ME) 48769-0 Leukocytes [#/volume] in Urine by Test strip 100 NEGATIVE October 28, 2024 1:09:00 AM UTC (TECH: ME) 93207-3 Urinalysis dipstick W Reflex Culture panel - Urine N YES October 28, 2024 1:09:00 AM UTC (TECH: ME) 21037-0 Erythrocytes [#/area] in Urine sediment by Microscopy high power field N 0-2 NONE SEEN October 28, 2024 1:09:00 AM UTC (TECH: ME) 5821-4 Leukocytes [#/area] in Urine sediment by Microscopy high power field N 1-5 NONE SEEN October 28, 2024 1:09:00 AM UTC (TECH: ME) 83969-0 Epithelial cells.squamous [#/area] in Urine sediment by Microscopy high power field N RARE NONE SEEN October 28, 2024 1:09:00 AM UTC (TECH: ME) 5769-5 Bacteria [#/area] in Urine sediment by Microscopy high power field 2+ NONE SEEN October 28, 2024 1:09:00 AM UTC (TECH: ME) ORDER 600: LACTIC ACID (LOIN C: 2524-7) ORDER DATE: October 28, 2024 1:56:00 AM UTC Specimen Source: PLASMA Specimen Type: Plasma specim en PERFORMING LAB: [address] [id number] Result Comment: Final Result Date: October 28, 2024 2:47:00 AM UTC (TECH: AY) LOINC TEST FLAG RESULT REFERENCE RANGE UPDA ELISHA BY 2524-7 Lactate [Moles/volume] in Serum or Plasma N 0.7 mmol/L 0.4 mmol/L - 2.0 mmol/L October 28, 2024 2:47:00 AM UTC (TECH: AY) ORDER 1500: CBC AUTO W DIFF (LOINC: 39929-9) ORDER DATE: October 28, 2024 4:07:00 AM UTC Specimen Source: EDTA Specimen Type: Blood specime n with EDTA PERFORMING LAB: [address] [id number] Result Comment: Final Result Date: October 28, 2024 11:36:00 AM UTC (TECH: TGD) LOINC TEST FLAG RESULT REFERENCE RANGE UPDA ELISHA BY 6690-2 Leukocytes [#/volume] in Blood by Automated count N 8.8 K/ul 4.0 K/ul - 10.5 K/ul October 28, 2024 11:36:00 AM UTC (TECH: TGD) 789-8 Erythrocytes [#/volume] in Blood by Automated count L 3.0 M/mm3 4.2 M/mm3 - 6.4 M/mm3 October 28, 2024 11:36:00 AM UTC (TECH: TGD) 718-7 Hemoglobin [Mass/volume] in Blood L 8.6 gm/dl 12.5 gm/dl - 16.0 gm/dl October 28, 2024 11:36:00 AM UTC (TECH: TGD) 77686-1 Hematocrit [Volume Fraction] of Blood L 27.8 % 37.0 % - 47.0 % October 28, 2024 11:36:00 AM UTC (TECH: TGD) 787-2 Erythrocyte mean corpuscular volume [Entitic volume] by Automated count N 92.1 fl 78 fl - 100 fl October 28, 2024 11:36:00 AM UTC (TECH: TGD) 785-6 Erythrocyte mean corpuscular hemoglobin [Entitic mass] by Automated count N 28.5 pg 27 pg - 31 pg October 28, 2024 11:36:00 AM UTC (TECH: TGD) 786-4 Erythrocyte mean corpuscular hemoglobin concentration [Mass/volume] by Automated count L 30.9 g/dl 32 g/dl - 36 g/dl October 28, 2024 11:36:00 AM UTC (TECH: TGD) 93788-6 Erythrocyte distribution width [Ratio] H 14.4 % 11.5 % - 14.0 % October 28, 2024 11:36:00 AM UTC (TECH: TGD) 777-3 Platelets [#/volume] in Blood by Automated count N 180 K/ul 150 K/ul - 450 K/ul October 28, 2024 11:36:00 AM UTC (TECH: TGD) 33825-7 Platelet mean volume [Entitic volume] in Blood by Automated count N 9.4 fl 6 fl - 9.5 fl October 28, 2024 11:36:00 AM UTC (TECH: TGD) 33313-3 Neutrophils/100 leukocytes in Blood H 79.9 % 43 % - 65 % October 28, 2024 11:36:00 AM UTC (TECH: TGD) 736-9 Lymphocytes/100 leukocytes in Blood by Automated count L 7.6 % 20.5 % - 45.5 % October 28, 2024 11:36:00 AM UTC (TECH: TGD) 5905-5 Monocytes/100 leukocytes in Blood by Automated count N 9.0 % 5.5 % - 11.7 % October 28, 2024 11:36:00 AM UTC (TECH: TGD) 713-8 Eosinophils/100 leukocytes in Blood by Automated count N 2.7 % 0.9 % - 2.9 % October 28, 2024 11:36:00 AM UTC (TECH: TGD) 706-2 Basophils/100 leukocytes in Blood by Automated count N 0.2 % 0.2 % - 1.0 % October 28, 2024 11:36:00 AM UTC (TECH: TGD) 92781-7 Immature granulocytes/100 leukocytes in Blood by Automated count N 0.6 % 0.0 % - 0.8 % October 28, 2024 11:36:00 AM UTC (TECH: TGD) 65703-3 Nucleated cells [#/volume] in Blood N 0.0 % October 28, 2024 11:36:00 AM UTC (TECH: TGD) 54416-6 Neutrophils [#/volume] in Blood H 7.0 K/uL 2.2 K/uL - 4.8 K/uL October 28, 2024 11:36:00 AM UTC (TECH: TGD) 731-0 Lymphocytes [#/volume] in Blood by Automated count L 0.7 CELL/MCL 1.3 CELL/MCL - 2.9 CELL/MCL October 28, 2024 11:36:00 AM UTC (TECH: TGD) 742-7 Monocytes [#/volume] in Blood by Automated count N 0.8 CELL/MCL 0.3 CELL/MCL - 0.8 CELL/MCL October 28, 2024 11:36:00 AM UTC (TECH: TGD) 711-2 Eosinophils [#/volume] in Blood by Automated count N 0.2 CELL/MCL 0 CELL/MCL - 0.2 CELL/MCL October 28, 2024 11:36:00 AM UTC (TECH: TGD) 704-7 Basophils [#/volume] in Blood by Automated count N 0.0 CELL/MCL 0.0 CELL/MCL - 1.0 CELL/MCL October 28, 2024 11:36:00 AM UTC (TECH: TGD) 23066-9 Immature granulocytes [#/volume] in Blood N 0.05 K/ul October 28, 2024 11:36:00 AM UTC (TECH: TGD) 95398-8 Nucleated cells [#/volume] in Blood N 0.00 K/uL October 28, 2024 11:36:00 AM UTC (TECH: TGD) 71436-5 Manual Differential panel - Blood N NO October 28, 2024 11:36:00 AM UT (TECH: TGD) ORDER 1600: COMP METABOLIC P CARMEL (LOINC: 65910-4) ORDER DATE: October 28, 2024 4:07:00 AM UT Specimen Source: PLASMA Specimen Type: Plasma specim en PERFORMING LAB: [address] [id number] Result Comment: Final Result Date: October 28, 2024 11:52:00 AM UT (TECH: ARR) LOINC TEST FLAG RESULT REFERENCE RANGE UPDA ELISHA BY 2951-2 Sodium [Moles/volume ] in Serum or Plasma L 132 mmol/L 136 mmol/L - 145 mmol/L October 28, 2024 11:52:00 AM UTC (TECH: ARR) 2823-3 Potassium [Moles/volume] in Serum or Plasma N 4.7 mmol/L 3.6 mmol/L - 5.0 mmol/L October 28, 2024 11:52:00 AM UTC (TECH: ARR) 2075-0 Chloride [Moles/volu me] in Serum or Plasma N 99 mmol/L 98 mmol/L - 107 mmol/L October 28, 2024 11:52:00 AM UTC (TECH: ARR) 2027-9 Carbon dioxide, tota l [Moles/volume] in Serum or Plasma N 26.9 mmol/L 21.0 mmol/L - 32.0 mmol/L October 28, 2024 11:52:00 AM UTC (TECH: ARR) 61347-2 Anion gap in Blood N 10.8 M 2024 11:52:00 AM UTC (TECH: ARR) 2345-7 Glucose [Mass/volume ] in Serum or Plasma N 112 mg/dl 70 mg/dl - 120 mg/dl October 28, 2024 11:52:00 AM UTC (TECH: ARR) 6299-2 Urea nitrogen [Mass/volume] in Blood H 22 mg/dL 7 mg/dL - 18 mg/dL October 28, 2024 11:52:00 AM UTC (TECH: ARR) 56344-1 Creatinine [Moles/volume] in Blood H 1.7 mg/dL 0.6 mg/dL - 1.3 mg/dL October 28, 2024 11:52:00 AM UTC (TECH: ARR) 29072-7 Glomerular filtratio n rate/1.73 sq M.predicted by Creatinine-based formula (MDRD) L 31 mlpermin 60 mlpermin October 28, 2024 11:52:00 AM UTC (TECH: ARR) 34297-3 Osmolality of Serum or Plasma by calculated by sum of electrolytes N 279 mosm/kg 275 mosm/kg - 301 mosm/kg October 28, 2024 11:52:00 AM UTC (TECH: ARR) 2885-2 Protein [Mass/volume ] in Serum or Plasma L 6.2 g/dl 6.4 g/dl - 8.2 g/dl October 28, 2024 11:52:00 AM UT (TECH: ARR) 1751-7 Albumin [Mass/volume ] in Serum or Plasma L 2.0 g/dl 3.4 g/dl - 5.0 g/dl October 28, 2024 11:52:00 AM UT (TECH: ARR) 2336-6 Globulin [Mass/volum e] in Serum N 4.2 October 28, 2024 11:52:00 AM UT (TECH: ARR) 1759-0 Albumin/Globulin [Ma ss Ratio] in Serum or Plasma L 0.5 0.7 - 2 October 28, 2024 11:52:00 AM UT (TECH: ARR) 27840-1 Calcium [Mass/volume ] in Serum or Plasma N 8.5 mg/dl 8.5 mg/dl - 10.5 mg/dl October 28, 2024 11:52:00 AM UT (TECH: ARR) 1975-2 Bilirubin.total [Mass/volume] in Serum or Plasma N 0.70 mg/dL 0.10 mg/dL - 1.00 mg/dL October 28, 2024 11:52:00 AM UT (TECH: ARR) 1920-8 Aspartate aminotransferase [Enzymatic activity/volume] in Serum or Plasma H 156 U/L 0 U/L - 37 U/L October 28, 2024 11:52:00 AM UT (TECH: ARR) 1742-6 Alanine aminotransferase [Enzymatic activity/volume] in Serum or Plasma N 18 U/L 0 U/L - 65 U/L October 28, 2024 11:52:00 AM UT (TECH: ARR) 6768-6 Alkaline phosphatase [Enzymatic activity/volume] in Serum or Plasma H 212 U/L 46 U/L - 116 U/L October 28, 2024 11:52:00 AM UT (TECH: ARR) ORDER 1700: MAGNESIUM (LOINC : 70819-6) ORDER DATE: October 28, 2024 4:07:00 AM [facility] Specimen Source: PLASMA Specimen Type: Plasma specim en PERFORMING LAB: [address] [id number] Result Comment: Final Result Date: October 28, 2024 11:52:00 AM UT (TECH: ARR) LOINC TEST FLAG RESULT [place] [address]-0 Magnesium [Mass/volume] in Serum or Plasma N 2.1 MG/DL 1.8 MG/DL - 2.4 MG/DL October 28, 2024 11:52:00 AM UTC (TECH: ARR) ORDER 1800: PT PROTHROMBIN T IAN W INR (LOINC: 59211-6) ORDER DATE: October 28, 2024 4:07:00 AM UTC Specimen Source: PLASMA Specimen Type: Plasma specim en PERFORMING LAB: [address] [id number] Result Comment: Final Result Date: October 28, 2024 11:42:00 AM UTC (TECH: TGD) LOINC TEST FLAG [place] [address]-8 INR in Platelet poor plasma or blood by Coagulation assay H 25.2 SECONDS 9.3 SECONDS - 11.4 SECONDS October 28, 2024 11:42:00 AM UTC (TECH: TGD) 6301-6 INR in Platelet poor plasma by Coagulation assay H 2.5 Ratio 0.97 Ratio - 1.05 Ratio October 28, 2024 11:42:00 AM UT (TECH: TGD) ORDER 2200: COMP METABOLIC P CARMEL (LOINC: 79668-5) ORDER DATE: October 28, 2024 8:04:00 AM UTC Specimen Source: PLASMA Specimen Type: Plasma specim en PERFORMING LAB: [address] [id number] Result Comment: Final Result Date: October 29, 2024 8:41:00 AM UTC (TECH: [facility]) LOINC TEST FLAG RESULT REFERENCE RANGE UPDA ELISHA BY 2951-2 Sodium [Moles/volume ] in Serum or Plasma L 133 mmol/L 136 mmol/L - 145 mmol/L October 29, 2024 8:41:00 AM UTC (TECH: [facility]) 2823-3 Potassium [Moles/volume] in Serum or Plasma N 4.7 mmol/L 3.6 mmol/L - 5.0 mmol/L October 29, 2024 8:41:00 AM UTC (TECH: [facility]) 2075-0 Chloride [Moles/volu me] in Serum or Plasma N 101 mmol/L 98 mmol/L - 107 mmol/L October 29, 2024 8:41:00 AM UTC (TECH: [facility]) 2027- Carbon dioxide, tota l [Moles/volume] in Serum or Plasma N 25.0 mmol/L 21.0 mmol/L - 32.0 mmol/L October 29, 2024 8:41:00 AM UT (TECH: Bauzaar) 82999-8 Anion gap in Blood N 11.7 M 2024 8:41:00 AM UT (TECH: Bauzaar) 2345-7 Glucose [Mass/volume ] in Serum or Plasma N 99 mg/dl 70 mg/dl - 120 mg/dl October 29, 2024 8:41:00 AM UT (TECH: Bauzaar) 6299-2 Urea nitrogen [Mass/volume] in Blood H 21 mg/dL 7 mg/dL - 18 mg/dL October 29, 2024 8:41:00 AM [facility] (TECH: Bauzaar) 87056-7 Creatinine [Moles/volume] in Blood H 1.5 mg/dL 0.6 mg/dL - 1.3 mg/dL October 29, 2024 8:41:00 AM [facility] (TECH: Bauzaar) 50696-5 Glomerular filtratio n rate/1.73 sq M.predicted by Creatinine-based formula (MDRD) L 36 mlpermin 60 mlpermin October 29, 2024 8:41:00 AM [facility] (TECH: Bauzaar) 59063-3 Osmolality of Serum or Plasma by calculated by sum of electrolytes N 280 mosm/kg 275 mosm/kg - 301 mosm/kg October 29, 2024 8:41:00 AM [facility] (TECH: Bauzaar) 2885-2 Protein [Mass/volume ] in Serum or Plasma N 6.4 g/dl 6.4 g/dl - 8.2 g/dl October 29, 2024 8:41:00 AM UT (TECH: Bauzaar) 1751-7 Albumin [Mass/volume ] in Serum or Plasma L 2.0 g/dl 3.4 g/dl - 5.0 g/dl October 29, 2024 8:41:00 AM UT (TECH: Bauzaar) 2336-6 Globulin [Mass/volum e] in Serum N 4.4 October 29, 2024 8:41:00 AM UT (TECH: Bauzaar) 1759-0 Albumin/Globulin [Ma ss Ratio] in Serum or Plasma L 0.5 0.7 - 2 October 29, 2024 8:41:00 AM UT (TECH: Bauzaar) 28824-8 Calcium [Mass/volume ] in Serum or Plasma N 9.1 mg/dl 8.5 mg/dl - 10.5 mg/dl October 29, 2024 8:41:00 AM UT (TECH: Bauzaar) 1975-2 Bilirubin.total [Mass/volume] in Serum or Plasma N 0.60 mg/dL 0.10 mg/dL - 1.00 mg/dL October 29, 2024 8:41:00 AM UT (TECH: Bauzaar) 1920-8 Aspartate aminotransferase [Enzymatic activity/volume] in Serum or Plasma H 95 U/L 0 U/L - 37 U/L October 29, 2024 8:41:00 AM [facility] (TECH: Bauzaar) 1742-6 Alanine aminotransferase [Enzymatic activity/volume] in Serum or Plasma N 14 U/L 0 U/L - 65 U/L October 29, 2024 8:41:00 AM UT (TECH: Bauzaar) 6768-6 Alkaline phosphatase [Enzymatic activity/volume] in Serum or Plasma H 207 U/L 46 U/L - 116 U/L October 29, 2024 8:41:00 AM UT (TECH: Bauzaar) ORDER 2300: CBC AUTO W DIFF (LOINC: 84862-7) ORDER DATE: October 28, 2024 8:04:00 AM [facility] Specimen Source: EDTA Specimen Type: Blood specime n with EDTA PERFORMING LAB: [address] [id number] Result Comment: Final Result Date: October 29, 2024 8:20:00 AM [facility] (TECH: [employer]) LOINC TEST FLAG RESULT REFERENCE RANGE UPDA ELISHA BY 6690-2 Leukocytes [#/volume] in Blood by Automated count N 9.2 K/ul 4.0 K/ul - 10.5 K/ul October 29, 2024 8:20:00 AM [facility] (TECH: [facility]) 789-8 Erythrocytes [#/volume] in Blood by Automated count L 2.9 M/mm3 4.2 M/mm3 - 6.4 M/mm3 October 29, 2024 8:20:00 AM [facility] (TECH: [facility]) 718-7 Hemoglobin [Mass/volume] in Blood L 8.6 gm/dl 12.5 gm/dl - 16.0 gm/dl October 29, 2024 8:20:00 AM [facility] (TECH: CRM) 28900-5 Hematocrit [Volume Fraction] of Blood L 27.3 % 37.0 % - 47.0 % October 29, 2024 8:20:00 AM [facility] (TECH: CRM) 787-2 Erythrocyte mean corpuscular volume [Entitic volume] by Automated count N 93.2 fl 78 fl - 100 fl October 29, 2024 8:20:00 AM [facility] (TECH: CRM) 785-6 Erythrocyte mean corpuscular hemoglobin [Entitic mass] by Automated count N 29.4 pg 27 pg - 31 pg October 29, 2024 8:20:00 AM [facility] (TECH: CRM) 786-4 Erythrocyte mean corpuscular hemoglobin concentration [Mass/volume] by Automated count L 31.5 g/dl 32 g/dl - 36 g/dl October 29, 2024 8:20:00 AM [facility] (TECH: CRM) 81242-4 Erythrocyte distribution width [Ratio] H 14.4 % 11.5 % - 14.0 % October 29, 2024 8:20:00 AM [facility] (TECH: CRM) 777-3 Platelets [#/volume] in Blood by Automated count N 177 K/ul 150 K/ul - 450 K/ul October 29, 2024 8:20:00 AM [facility] (TECH: [employer]) 35940-7 Platelet mean volume [Entitic volume] in Blood by Automated count N 9.1 fl 6 fl - 9.5 fl October 29, 2024 8:20:00 AM UTC (TECH: CRM) 33837-9 Neutrophils/100 leukocytes in Blood H 78.4 % 43 % - 65 % October 29, 2024 8:20:00 AM [facility] (TECH: CRM) 736-9 Lymphocytes/100 leukocytes in Blood by Automated count L 10.1 % 20.5 % - 45.5 % October 29, 2024 8:20:00 AM UTC (TECH: CRM) 5905-5 Monocytes/100 leukocytes in Blood by Automated count N 8.3 % 5.5 % - 11.7 % October 29, 2024 8:20:00 AM UTC (TECH: CRM) 713-8 Eosinophils/100 leukocytes in Blood by Automated count N 2.2 % 0.9 % - 2.9 % October 29, 2024 8:20:00 AM UTC (TECH: CRM) 706-2 Basophils/100 leukocytes in Blood by Automated count N 0.3 % 0.2 % - 1.0 % October 29, 2024 8:20:00 AM UTC (TECH: CRM) 21455-1 Immature granulocytes/100 leukocytes in Blood by Automated count N 0.7 % 0.0 % - 0.8 % October 29, 2024 8:20:00 AM UTC (TECH: CRM) 77015-5 Nucleated cells [#/volume] in Blood N 0.0 % October 29, 2024 8:20:00 AM UTC (TECH: CRM) 50737-9 Neutrophils [#/volume] in Blood H 7.2 K/uL 2.2 K/uL - 4.8 K/uL October 29, 2024 8:20:00 AM UTC (TECH: CRM) 731-0 Lymphocytes [#/volume] in Blood by Automated count L 0.9 CELL/MCL 1.3 CELL/MCL - 2.9 CELL/MCL October 29, 2024 8:20:00 AM UTC (TECH: CRM) 742-7 Monocytes [#/volume] in Blood by Automated count N 0.8 CELL/MCL 0.3 CELL/MCL - 0.8 CELL/MCL October 29, 2024 8:20:00 AM UTC (TECH: CRM) 711-2 Eosinophils [#/volume] in Blood by Automated count N 0.2 CELL/MCL 0 CELL/MCL - 0.2 CELL/MCL October 29, 2024 8:20:00 AM UTC (TECH: CRM) 704-7 Basophils [#/volume] in Blood by Automated count N 0.0 CELL/MCL 0.0 CELL/MCL - 1.0 CELL/MCL October 29, 2024 8:20:00 AM UTC (TECH: CRM) 29807-3 Immature granulocytes [#/volume] in Blood N 0.06 K/ul October 29, 2024 8:20:00 AM UTC (TECH: CRM) 41995-1 Nucleated cells [#/volume] in Blood N 0.00 K/uL October 29, 2024 8:20:00 AM UT (TECH: CRM) 07774-3 Manual Differential panel - Blood N NO October 29, 2024 8:20:00 AM UTC (TECH: CRM) ORDER 2400: PT PROTHROMBIN T IAN W INR (LOINC: 58378-9) ORDER DATE: October 28, 2024 1:25:00 PM UTC Specimen Source: PLASMA Specimen Type: Plasma specim en PERFORMING LAB: [address] [id number] Result Comment: Final Result Date: October 29, 2024 8:40:00 AM UTC (TECH: CRM) LOINC TEST FLAG [place] [address]-7 INR in Platelet poor plasma or blood by Coagulation assay H 28.1 SECONDS 9.3 SECONDS - 11.4 SECONDS October 29, 2024 8:40:00 AM UTC (TECH: CRM) 6301-6 INR in Platelet poor plasma by Coagulation assay H 2.8 Ratio 0.97 Ratio - 1.05 Ratio October 29, 2024 8:40:00 AM UTC (TECH: CRM) ORDER 2700: PT PROTHROMBIN T IAN W INR (LOINC: 79278-3) ORDER DATE: October 29, 2024 1:14:00 PM UTC Specimen Source: PLASMA Specimen Type: Plasma specim en PERFORMING LAB: [address] [id number] Result Comment: Final Result Date: October 30, 2024 10:07:00 AM UTC (TECH: RR) LOINC TEST FLAG [place] [address]-6 INR in Platelet poor plasma or blood by Coagulation assay HH 54.9 SECONDS 9.3 SECONDS - 11.4 SECONDS October 30, 2024 10:07:00 AM UTC (TECH: RR) 6301-6 INR in Platelet poor plasma by Coagulation assay H 5.81 Ratio 0.97 Ratio - 1.05 Ratio October 30, 2024 10:07:00 AM UTC (TECH: RR) ORDER 2800: CBC AUTO W DIFF (LOINC: 90550-0) ORDER DATE: October 29, 2024 3:26:00 PM UTC Specimen Source: EDTA Specimen Type: Blood specime n with EDTA PERFORMING LAB: [place] [address] [facility] [id number] Result Comment: Final Result Date: October 30, 2024 9:31:00 AM UTC (TECH: RR) LOINC TEST FLAG RESULT REFERENCE RANGE UPDA ELISHA BY 6690-2 Leukocytes [#/volume] in Blood by Automated count N 7.6 K/ul 4.0 K/ul - 10.5 K/ul October 30, 2024 9:31:00 AM UTC (TECH: RR) 789-8 Erythrocytes [#/volume] in Blood by Automated count L 2.9 M/mm3 4.2 M/mm3 - 6.4 M/mm3 October 30, 2024 9:31:00 AM UTC (TECH: RR) 718-7 Hemoglobin [Mass/volume] in Blood L 8.4 gm/dl 12.5 gm/dl - 16.0 gm/dl October 30, 2024 9:31:00 AM UTC (TECH: RR) 19505-6 Hematocrit [Volume Fraction] of Blood L 26.9 % 37.0 % - 47.0 % October 30, 2024 9:31:00 AM UTC (TECH: RR) 787-2 Erythrocyte mean corpuscular volume [Entitic volume] by Automated count N 93.4 fl 78 fl - 100 fl October 30, 2024 9:31:00 AM UTC (TECH: RR) 785-6 Erythrocyte mean corpuscular hemoglobin [Entitic mass] by Automated count N 29.2 pg 27 pg - 31 pg October 30, 2024 9:31:00 AM UTC (TECH: RR) 786-4 Erythrocyte mean corpuscular hemoglobin concentration [Mass/volume] by Automated count L 31.2 g/dl 32 g/dl - 36 g/dl October 30, 2024 9:31:00 AM UTC (TECH: RR) 33210-7 Erythrocyte distribution width [Ratio] H 14.4 % 11.5 % - 14.0 % October 30, 2024 9:31:00 AM UTC (TECH: RR) 777-3 Platelets [#/volume] in Blood by Automated count N 174 K/ul 150 K/ul - 450 K/ul October 30, 2024 9:31:00 AM UTC (TECH: RR) 87313-2 Platelet mean volume [Entitic volume] in Blood by Automated count N 9.2 fl 6 fl - 9.5 fl October 30, 2024 9:31:00 AM UTC (TECH: RR) 56395-8 Neutrophils/100 leukocytes in Blood H 80.6 % 43 % - 65 % October 30, 2024 9:31:00 AM UTC (TECH: RR) 736-9 Lymphocytes/100 leukocytes in Blood by Automated count L 9.0 % 20.5 % - 45.5 % October 30, 2024 9:31:00 AM UTC (TECH: RR) 5905-5 Monocytes/100 leukocytes in Blood by Automated count N 7.9 % 5.5 % - 11.7 % October 30, 2024 9:31:00 AM UTC (TECH: RR) 713-8 Eosinophils/100 leukocytes in Blood by Automated count N 1.6 % 0.9 % - 2.9 % October 30, 2024 9:31:00 AM UTC (TECH: RR) 706-2 Basophils/100 leukocytes in Blood by Automated count N 0.4 % 0.2 % - 1.0 % October 30, 2024 9:31:00 AM UTC (TECH: RR) 64401-9 Immature granulocytes/100 leukocytes in Blood by Automated count N 0.5 % 0.0 % - 0.8 % October 30, 2024 9:31:00 AM UTC (TECH: RR) 63105-1 Nucleated cells [#/volume] in Blood N 0.0 % October 30, 2024 9:31:00 AM UTC (TECH: RR) 57596-3 Neutrophils [#/volume] in Blood H 6.1 K/uL 2.2 K/uL - 4.8 K/uL October 30, 2024 9:31:00 AM UTC (TECH: RR) 731-0 Lymphocytes [#/volume] in Blood by Automated count L 0.7 CELL/MCL 1.3 CELL/MCL - 2.9 CELL/MCL October 30, 2024 9:31:00 AM UTC (TECH: RR) 742-7 Monocytes [#/volume] in Blood by Automated count N 0.6 CELL/MCL 0.3 CELL/MCL - 0.8 CELL/MCL October 30, 2024 9:31:00 AM UTC (TECH: RR) 711-2 Eosinophils [#/volume] in Blood by Automated count N 0.1 CELL/MCL 0 CELL/MCL - 0.2 CELL/MCL October 30, 2024 9:31:00 AM UT (TECH: RR) 704-7 Basophils [#/volume] in Blood by Automated count N 0.0 CELL/MCL 0.0 CELL/MCL - 1.0 CELL/MCL October 30, 2024 9:31:00 AM UT (TECH: RR) 51042-0 Immature granulocytes [#/volume] in Blood N 0.04 K/ul October 30, 2024 9:31:00 AM UT (TECH: RR) 56641-3 Nucleated cells [#/volume] in Blood N 0.00 K/uL October 30, 2024 9:31:00 AM [facility] (TECH: RR) 43214-3 Manual Differential panel - Blood N NO October 30, 2024 9:31:00 AM [facility] (TECH: RR) ORDER 2900: COMP METABOLIC P CARMEL (LOINC: 25965-9) ORDER DATE: October 29, 2024 3:26:00 PM [facility] Specimen Source: PLASMA Specimen Type: Plasma specim en PERFORMING LAB: [address] [id number] Result Comment: Final Result Date: October 30, 2024 10:01:00 AM [facility] (TECH: RR) LOINC TEST FLAG RESULT REFERENCE RANGE UPDA ELISHA BY 2951-2 Sodium [Moles/volume ] in Serum or Plasma N 136 mmol/L 136 mmol/L - 145 mmol/L October 30, 2024 10:01:00 AM UT (TECH: RR) 2823-3 Potassium [Moles/vol ume] in Serum or Plasma N 4.5 mmol/L 3.6 mmol/L - 5.0 mmol/L October 30, 2024 10:01:00 AM UT (TECH: RR) 2075-0 Chloride [Moles/volu me] in Serum or Plasma N 103 mmol/L 98 mmol/L - 107 mmol/L October 30, 2024 10:01:00 AM [facility] (TECH: RR) 2027-9 Carbon dioxide, tota l [Moles/volume] in Serum or Plasma N 23.1 mmol/L 21.0 mmol/L - 32.0 mmol/L October 30, 2024 10:01:00 AM UTC (TECH: RR) 71871-2 Anion gap in Blood N 14.4 J 2024 10:01:00 AM UTC (TECH: RR) 2345-7 Glucose [Mass/volume ] in Serum or Plasma N 80 mg/dl 70 mg/dl - 120 mg/dl October 30, 2024 10:01:00 AM UTC (TECH: RR) 6299-2 Urea nitrogen [Mass/volume] in Blood N 15 mg/dL 7 mg/dL - 18 mg/dL October 10:01:00 AM UTC (TECH: RR) 81039-1 Creatinine [Moles/vo lume] in Blood N 1.2 mg/dL 0.6 mg/dL - 1.3 mg/dL October 30, 2024 10:01:00 AM UTC (TECH: RR) 83631-4 Glomerular filtratio n rate/1.73 sq M.predicted by Creatinine-based formula (MDRD) L 47 mlpermin 60 mlpermin October 30, 2024 10:01:00 AM UT (TECH: RR) 34791-3 Osmolality of Serum or Plasma by calculated by sum of electrolytes N 283 mosm/kg 275 mosm/kg - 301 mosm/kg October 30, 2024 10:01:00 AM UT (TECH: RR) 2885-2 Protein [Mass/volume ] in Serum or Plasma L 6.2 g/dl 6.4 g/dl - 8.2 g/dl October 30, 2024 10:01:00 AM UTC (TECH: RR) 1751-7 Albumin [Mass/volume ] in Serum or Plasma L 1.9 g/dl 3.4 g/dl - 5.0 g/dl October 30, 2024 10:01:00 AM UTC (TECH: RR) 2336-6 Globulin [Mass/volum e] in Serum N 4.3 October 30, 2024 10:01:00 AM UTC (TECH: RR) 1759-0 Albumin/Globulin [Ma ss Ratio] in Serum or Plasma L 0.4 0.7 - 2 October 10:01:00 AM UTC (TECH: RR) 90561-3 Calcium [Mass/volume ] in Serum or Plasma N 8.6 mg/dl 8.5 mg/dl - 10.5 mg/dl October 30, 2024 10:01:00 AM [facility] (TECH: RR) 1975-2 Bilirubin.total [Mass/volume] in Serum or Plasma N 0.50 mg/dL 0.10 mg/dL - 1.00 mg/dL October 30, 2024 10:01:00 AM [facility] (TECH: RR) 1920-8 Aspartate aminotrans ferase [Enzymatic activity/volume] in Serum or Plasma H 54 U/L 0 U/L - 37 U/L October 30, 2024 10:01:00 AM [facility] (TECH: RR) 1742-6 Alanine aminotransfe rase [Enzymatic activity/volume] in Serum or Plasma N 11 U/L 0 U/L - 65 U/L October 30, 2024 10:01:00 AM [facility] (TECH: RR) 6768-6 Alkaline phosphatase [Enzymatic activity/volume] in Serum or Plasma H 204 U/L 46 U/L - 116 U/L October 30, 2024 10:01:00 AM [facility] (TECH: RR) LABORATORY NARRATIVE RESULTS Information is not available RADIOLOGY RESULTS ORDER 400: CT ABD PEL W IV C ONT ONLY (LOINC: 70844-6) ORDER DATE: October 27, 2024 10:51:00 PM [facility] PERFORMING LAB: [address] [id number] Final Result Date: October 28 1:13:[address] [address] Name: DESHAWN ROBLERO Exam Date: 10/27/2024 : 1945 Age 79 years Gender: F Physician: KARIS SPICER Facility: [facility] Facility HSV: Outpatient Exam: CT ABD PEL W (IV CONT ONLY) FINAL REPORT TECHNIQUE: null CLINICAL HISTORY: Abdominal Pain COMPARISON: null FINDINGS: CT abdomen and pelvis with contrast Comparison: CT/DOC/SR - CTA CHEST AORTA - 06/09/24 22:09 EST Findings: Diffuse esophageal mural thickening, nonspecific. Atelectasis. Cardiomegaly without significant pericardial effusion. Coronary artery calcifications. Hepatomegaly with lobulations and nodular contours as well retraction of the capsule concerning for cirrhosis. There is enlarging ill-defined hypoenhancing/low-density mass lesions with calcifications throughout the liver, concerning for progressive metastatic disease. Enlarging maría hepatis adenopathy measuring 1.3 cm series 601, image 73. Contracted gallbladder with wall thickening and stranding. No radiopaque gallstones. No urolithiasis. Right ventral lateral abdominal wall hernia redemonstrated containing multiple loops of nondistended fluid-filled bowel. Colonic diverticulosis with peridiverticular inflammatory changes and fluid stranding noted in the sigmoid colon, consistent with diverticulitis. No evidence of free air or peridiverticular collections. Evidence of prior right colectomy. Fluid-filled loops of small bowel with air-fluid levels, without significant distention. Mild enteritis or ileus are considered. No high-grade bowel obstruction. Pelvic contents unremarkable. Normal appendix. Osteopenia with diffuse multilevel spondylosis. Grade 1 anterolisthesis at L4-L5. More conspicuous appearing 2 cm focus at L4 uncertain if this is a hemangioma or possible metastatic lesion. Finding is unchanged from prior. If concern persists consider nuclear medicine bone scan. IMPRESSION: IMPRESSION: 1. Uncomplicated sigmoid diverticulitis. 2. Possible diffuse small bowel ileus or enteritis. 3. Progressive hepatic metastatic disease with enlarging periportal adenopathy. 4. Contracted gallbladder with wall thickening and stranding. Correlation for early cholecystitis advised. 5. Additional findings as described. Authenticated and [facility] Dictated By: Paxton Ayala Transcribed By: Transcribed On: 10/27/2024 9:13 PM Legally authenticated by HEIDI GODWIN 2024-10-27 21:13:28 Electronically signed by: Paxton Ayala 10/27/2024 Thank you for referring DESHAWN ROBLERO to [facility]. Legally authenticated by HEIDI GODWIN 2024-10-27 21:13:28 PATHOLOGY NARRATIVE RESULTS Information is not available MICROBIOLOGY RESULTS No Micro Labs/Results Exist for Patient BLOOD ADMIN RESULTS Information is not available TREATMENT PLAN DISCHARGE MEDICATIONS Status RXNORM Medication Dose Route Frequency Dates Comments U pdated By [id number] MAGnesium-Oxide Oral Tablet 400 (240 Mg) MG 0 ORAL ONCE DAILY Prescri bed: October 30, 2024 3:13:50 PM [facility] [id number] on October 30, 2024 3:13:50 PM [facility] Continued 311722 Potassium Chloride ER Oral Tablet Extended Release 20 MEQ 0 ORAL ONCE DAILY Prescri bed: October 30, 2024 3:13:50 PM [facility] [id number] on October 30, 2024 3:13:50 PM [facility] Continued 430753 Ondansetron HCl Oral Tablet 8 MG 0 ORAL THREE TIMES A DAY Prescri bed: October 30, 2024 3:13:50 PM [facility] [id number] on October 30, 2024 3:13:50 PM [facility] Continued 668673 hydrocodone 10 mg-acetaminophen 325 mg tablet 0 Prescri bed: October 30, 2024 3:13:50 PM [facility] [id number] on October 30, 2024 3:13:50 PM [facility] Continued 032208 metoclopramide 5 mg tablet 5 MG ORAL THREE TIMES A DAY Prescri bed: October 30, 2024 3:13:50 PM [facility] [id number] on October 30, 2024 3:13:50 PM [facility] Continued 085896 rOPINIRole HCl Oral Tablet 0.5 MG 0.5 MG ORAL THREE TIMES A DAY Prescri bed: October 30, 2024 3:13:50 PM [facility] [id number] on October 30, 2024 3:13:50 PM [facility] Continued 629673 Amoxicillin-Pot Clavulanate Oral Tablet 875-125 MG 1 TAB ORAL TWICE A DAY Prescri bed: October 30, 2024 3:13:50 PM [facility] [id number] on October 30, 2024 3:13:50 PM [facility] Continued 9195485 diphenoxylate-at ropine 2.5 mg-0.025 mg tablet 0 ORAL FOUR TIMES A DAY Prescri bed: October 30, 2024 3:13:50 PM [facility] [id number] on October 30, 2024 3:13:50 PM [facility] Continued 502039 furosemide 40 mg tablet 40 MG ORAL ONCE DAILY NEEDED Prescri bed: October 30, 2024 3:13:50 PM [facility] [id number] on October 30, 2024 3:13:50 PM [facility] Continued Coumadin 5 MG ORAL EVERY THURSDAY AND THURSDAY (COUMADIN) Prescri bed: October 30, 2024 3:13:50 PM [facility] [id number] on October 30, 2024 3:13:50 PM [facility] Continued 117934 famotidine 10 mg tablet 0 Prescri bed: October 30, 2024 3:13:50 PM [facility] [id number] on October 30, 2024 3:13:50 PM [facility] PATIENT OPEN ORDERS Code System Description Frequency Occurrences Priority Start Date Ordering Physician Updated By 600-7 LOINC Bacteria identified in Blood by Culture ONE TIME 0 Stat October 28, 2024 1:56:00 AM [facility] DANNIELLE DYSON [id number] on October 28, 2024 2:44:00 AM [facility] 600-7 LOINC Bacteria identified in Blood by Culture ONE TIME 0 Stat October 28, 2024 1:56:00 AM [facility] DANNIELLE DYSON [id number] on October 28, 2024 1:33:00 AM [facility] 85430-9 LOINC INR in Platelet poor plasma or blood by Coagula EVERY AM 0 Routine October 31, 2024 9:00:00 AM [facility] QUIRINO FREIRE [id number] on October 30, 2024 10:38:00 AM [facility] SCHEDULED PROCEDURES Code System Description Status Scheduled Date Upd ated By Patient scheduled procedure information is not available. MEDICATIONS HOME MEDICATIONS Status RXNORM [facility] Medication Dose Route Frequency Dates Comments Reported By Updated By Active [id number] 20048 20853 1 Eliquis 5 mg tablet 0.0 Last Dose: August 01, 2024 12:00: 00 AM [facility] [id number] on October 28, 2024 9:26:33 AM [facility] Active 186076 60745 96557 0 furosemide 20 mg tablet 0.0 Last Dose: [id number] on October 28, 2024 9:26:33 AM [facility] Active 983559 16919 14736 5 metocloprami de 5 mg tablet 5.0 MG ORAL TID Last Dose: [id number] on October 28, 2024 9:26:33 AM [facility] Active 074258 81599 62926 0 hydrocodone 10 mg-acetamino phen 325 mg tablet 0.0 Last Dose: October 26, 2024 12:00: 00 AM [facility] [id number] on October 30, 2024 3:12:12 PM [facility] Active 1539133 45084 40275 0 diphenoxylat e-atropine 2.5 mg-0.025 mg tablet 0.0 ORAL QID Last Dose: [id number] on October 30, 2024 3:11:15 PM [facility] Active 820955 66763 31593 1 fluconazole 150 mg tablet 0.0 Last Dose: [id number] on October 28, 2024 9:26:33 AM [facility] Active 202862 91597 29601 0 famotidine 10 mg tablet 0.0 Last Dose: [id number] on October 30, 2024 3:12:07 PM [facility] Active 719329 97172 51301 0 furosemide 40 mg tablet 40.0 MG ORAL DAILYPRN Last Dose: [id number] on October 30, 2024 3:11:53 PM UT Active FreeT extMe d Coumadin 5.0 MG ORAL CMF Last Dose: [id number] on October 28, 2024 4:10:19 AM UT Active FreeT extMe d Coumadin 2.5 MG ORAL CTWT Last Dose: [id number] on October 28, 2024 4:13:26 AM UT Active FreeT extMe d coumadin 2.5 MG ORAL CSS Last Dose: [id number] on October 28, 2024 4:21:47 AM [facility] Active 543403 62945 94884 1 rOPINIRole HCl Oral Tablet 0.5 MG 0.5 MG ORAL TID Last Dose: [id number] on October 28, 2024 9:16:26 AM [facility] Active 41874 55026 1 MAGnesium-Ox sue Oral Tablet 400 (240 Mg) MG 0.0 ORAL DAILY Last Dose: [id number] on October 30, 2024 3:11:43 PM [facility] Active 326726 83655 43751 0 Potassium Chloride ER Oral Tablet Extended Release 20 MEQ 0.0 ORAL DAILY Last Dose: [id number] on October 30, 2024 3:11:31 PM [facility] Active 845911 81090 61044 3 Ondansetron HCl Oral Tablet 8 MG 0.0 ORAL TID Last Dose: [id number] on October 30, 2024 3:11:38 PM [facility] DISCHARGE MEDICATIONS Status RXNORM NDC Medication Dose Route Frequency Dates Comments Physician Updated By Wilbur hagan [id number] 3972 0033 901 MAGnesium-O xide Oral Tablet 400 (240 Mg) MG 0.0 ORAL ONCE DAILY Prescr ibed: October 30, 2024 3:13:5 0 PM [place] [facility] [id number] on October 30, 2024 3:13:50 PM UTC Continue d 432725 7048 9095 330 Potassium Chloride ER Oral Tablet Extended Release 20 MEQ 0.0 ORAL ONCE DAILY Prescr ibed: October 30, 2024 3:13:5 0 PM [place] [facility] [id number] on October 30, 2024 3:13:50 PM UTC Continue d 342906 3611 1015 413 Ondansetron HCl Oral Tablet 8 MG 0.0 ORAL THREE TIMES A DAY Prescr ibed: October 30, 2024 3:13:5 0 PM [place] [facility] [id number] on October 30, 2024 3:13:50 PM UTC Continue d 806620 5320 4000 330 hydrocodone 10 mg-acetamin ophen 325 mg tablet 0.0 Prescr ibed: October 30, 2024 3:13:5 0 PM [place] [facility] [id number] on October 30, 2024 3:13:50 PM UTC Continue d 358267 2567 0001 005 metoclopram sue 5 mg tablet 5.0 MG ORAL THREE TIMES A DAY Prescr ibed: October 30, 2024 3:13:5 0 PM [place] [facility] [id number] on October 30, 2024 3:13:50 PM UTC Continue d 070403 8295 5 401 rOPINIRole HCl Oral Tablet 0.5 MG 0.5 MG ORAL THREE TIMES A DAY Prescr ibed: October 30, 2024 3:13:5 0 PM [place] [facility] [id number] on October 30, 2024 3:13:50 PM UTC Continue d 626690 9451 1185 220 Amoxicillin -Pot Clavulanate Oral Tablet 875-125 MG 1.0 TAB ORAL TWICE A DAY Prescr ibed: October 30, 2024 3:13:5 0 PM [place] [facility] [id number] on October 30, 2024 3:13:50 PM UTC Continue d 8223424 2415 5012 710 diphenoxyla te-atropine 2.5 mg-0.025 mg tablet 0.0 ORAL FOUR TIMES A DAY Prescr ibed: October 30, 2024 3:13:5 0 PM [facility] [place] [facility] [id number] on October 30, 2024 3:13:50 PM [facility] Continue d 938816 2612 0000 310 furosemide 40 mg tablet 40.0 MG ORAL ONCE DAILY NEEDED Prescr ibed: October 30, 2024 3:13:5 0 PM [place] [facility] [id number] on October 30, 2024 3:13:50 PM [facility] Continue d Free Text Med Coumadin 5.0 MG ORAL EVERY THURSDAY AND THURSDAY (COUMADIN) Prescr ibed: October 30, 2024 3:13:5 0 PM [facility] [place] [facility] [id number] on October 30, 2024 3:13:50 PM [facility] Continue d 909920 0264 5063 730 famotidine 10 mg tablet 0.0 Prescr ibed: October 30, 2024 3:13:5 0 PM [facility] [place] M [facility] [id number] on October 30, 2024 3:13:50 PM [facility] INPATIENT MEDICATIONS Status RXNORM [facility] Medication Dose Route Frequency Rat e Quantity Dates Comments Physician Updated By Lee inued [id number] 655883 1989 0102 671 orphenadrin e (NORFLEX) 60 MG/2 ML SOLN 60.0 MG INTRAM USCULA R ONE TIME ONLY (SCHEDULED DOSE) Start: October 27, 2024 11:04: 00 PM [place] End: October 27, 2024 11:04: 00 PM [facility] ARACELI ASENCIO V [facility] ED on October 27, 2024 11:03:00 PM [facility] Discigor inued 1045919 4620 9379 501 ketorolac (TORADOL) 30 MG/ML SOLN 30.0 MG ONE TIME ONLY (SCHEDULED DOSE) Start: October 27, 2024 11:06: 00 PM [facility] End: October 27, 2024 11:06: 00 PM [facility] ED on October 27, 2024 11:04:00 PM [facility] Discigor inued [id number] ondansetron (ZOFRAN) INJ 4 MG/2 ML SOLN 4.0 MG INTRAV ENOUS ONE TIME ONLY (SCHEDULED DOSE) Start: October 27, 2024 11:06: 00 PM UTC End: October 27, 2024 11:06: 00 PM UTC [facility] ED on October 27, 2024 11:04:00 PM UTC Discont inued [id number] cefTRIAXone (ROCEPHIN) 1 GM SOLR 1.0 GM INTRAV ENOUS ONE TIME ONLY (SCHEDULED DOSE) Start: October 28, 2024 2:12:0 0 AM UTC End: October 28, 2024 2:12:0 0 AM UTC [facility] ED on October 28, 2024 2:10:00 AM UTC Discont inued [id number] metroNIDAZO LE (FLAGYL) PREMIX 500 MG/100 ML SOLN 500.0 MG INTRAV ENOUS ONE TIME ONLY (SCHEDULED DOSE) Start: October 28, 2024 2:12:0 0 AM UTC End: October 28, 2024 2:12:0 0 AM UTC [facility] ED on October 28, 2024 2:11:00 AM UTC Discont inued [phone] NOZIN [employer]AL [employer]IST POPSWAB SWAB 1.0 EA NASAL TWICE A DAY Start: October 28, 2024 1:00:0 0 PM UTC End: October 30, 2024 3:13:5 0 PM UTC BRENGS EMILY Pickering [id number] on October 28, 2024 4:06:00 AM UTC Discont inued 0892 0306 546 sodium chloride 0.9% FLUSH 10 ML SOLN 10.0 ML INTRAV ENOUS NEEDED Start: October 28, 2024 3:58:0 0 AM UTC End: October 30, 2024 3:13:5 0 PM UTC BRENGS EMILY E [id number] on October 28, 2024 4:06:00 AM UTC Discont inued [id number] 2220 8004 904 sodium chloride 0.9% SOLN 1000. 0 ML INTRAV ENOUS CONT 75.0 ML/HR Start: October 28, 2024 3:58:0 0 AM UTC End: October 29, 2024 12:20: 51 PM UTC BRENGS EMILY E [id number] on October 29, 2024 12:20:00 PM UTC Discont inued [id number] 2304 5613 000 ondansetron (ZOFRAN) INJ 4 MG/2 ML SOLN 4.0 MG INTRAV ENOUS EVERY SIX HOURS NEEDED Start: October 28, 2024 3:58:0 0 AM UTC End: October 30, 2024 3:13:5 0 PM UTC BRENGS EMILY Pickering [id number] on October 28, 2024 4:06:00 AM UTC Discont inued 0012 1176 230 MYLANTA DS ORAL LIQD 30.0 ML ORAL EVERY SIX HOURS NEEDED Start: October 28, 2024 3:58:0 0 AM UTC End: October 30, 2024 3:13:5 0 PM UTC BRENGS EMILY Pickering [id number] on October 28, 2024 4:06:00 AM UTC Discont inued 424433 9816 4677 361 acetaminoph en (TYLENOL) 325 MG TABS 650.0 MG ORAL EVERY SIX HOURS NEEDED Start: October 28, 2024 3:58:0 0 AM UTC End: October 30, 2024 3:13:5 0 PM UTC BRENGS EMILY Pickering [id number] on October 28, 2024 4:06:00 AM UTC Discont inued [id number] 6876 7043 198 MIRALAX PACKET 17 GM PACK 17.0 GM ORAL ONCE DAILY NEEDED Start: October 28, 2024 3:58:0 0 AM UTC End: October 30, 2024 3:13:5 0 PM UTC BRENGS EMILY Pickering [id number] on October 28, 2024 4:06:00 AM UTC Discont inued [id number] 6976 9733 201 cefTRIAXone (ROCEPHIN) 1 GM SOLR 1.0 GM INTRAV ENOUS EVERY 24 HOURS 100.0 ML/HR Start: October 29, 2024 3:00:0 0 AM UTC End: October 30, 2024 3:13:5 0 PM UTC BRENGS EMILY Pickering [id number] on October 28, 2024 4:18:00 AM UTC Discont inued 0159218 4286 8055 311 sodium chloride 0.9% MB+ SOLN 50.0 ML INTRAV ENOUS EVERY 24 HOURS 100.0 ML/HR Start: October 29, 2024 3:00:0 0 AM UTC End: October 30, 2024 3:13:5 0 PM UTC BRENGS EMILY E KWAID on October 28, 2024 4:18:00 AM UT Discont inued 593218 1046 8105 548 metroNIDAZO LE (FLAGYL) PREMIX 500 MG/100 ML SOLN 500.0 MG INTRAV ENOUS EVERY EIGHT HOURS 100.0 ML/HR Start: October 28, 2024 10:00: 00 AM UT End: October 30, 2024 3:13:5 0 PM UTC BORIS GRUBER on October 28, 2024 4:18:00 AM UT Discont inued [id number] 5951 3985 601 cefTRIAXone (ROCEPHIN) 2 GM SOLR 2.0 GM INTRAV ENOUS ONE TIME ONLY (SCHEDULED DOSE) Start: October 28, 2024 4:23:0 0 AM UT End: October 28, 2024 4:23:0 0 AM UT QUIRINO FREIRE [facility] on October 28, 2024 4:21:00 AM UT Active [id number] 6772 4717 861 furosemide (LASIX) 40 MG TABS 40.0 MG ORAL ONCE DAILY NEEDED Start: October 28, 2024 9:22:0 0 AM UT End: October 30, 2024 4:25:0 0 PM UT BORIS Pickering [id number] on October 28, 2024 9:26:00 AM UT Discont inued Free Text Med famotidine 10 mg tablet 10.0 MG ORAL TWICE A DAY Start: October 28, 2024 1:00:0 0 PM UTC End: October 28, 2024 1:00:0 0 PM UTC BORIS OLIVER on October 28, 2024 9:32:00 AM UT Discont inued 515252 4315 9017 020 metoprolol succin (TOPROL XL) 50 MG TB24 10.0 MG ORAL AT BEDTIME Start: October 29, 2024 1:00:0 0 AM UTC End: October 29, 2024 1:00:0 0 AM UTC BREMORENO Pickering [id number] on October 28, 2024 12:15:00 PM UT Discont inued Free Text Med rOPINIRole HCl Oral Tablet 0.5 MG 0.5 MG ORAL THREE TIMES A DAY Start: October 28, 2024 1:00:0 0 PM UTC End: October 28, 2024 1:00:0 0 PM UTC BREMORENO Pickering AREDDEN on October 28, 2024 9:33:00 AM UTC Discont inued Free Text Med Coumadin 2.5 MG ORAL EVERY (COUMADIN) Start: November 01, 2024 9:00:0 0 PM UTC End: October 30, 2024 4:25:0 0 PM UTC BRENGChristopher Pickering [id number] on October 28, 2024 1:20:00 PM UTC Discont inued Free Text Med coumadin 2.5 MG ORAL EVERY THURSDAY AND THURSDAY (COUMADIN) Start: October 29, 2024 9:00:0 0 PM UTC End: October 29, 2024 9:00:0 0 PM UTC BRENGChristopher Pickering [id number] on October 28, 2024 1:21:00 PM UTC Discont inued Free Text Med Coumadin 5.0 MG ORAL EVERY THURSDAY AND THURSDAY (COUMADIN) Start: October 28, 2024 9:00:0 0 PM UTC End: October 28, 2024 9:00:0 0 PM UTC BRENGChristopher Pickering [id number] on October 28, 2024 1:18:00 PM UTC Discont inued 835932 4698 4017 688 NORCO 10-325 MG TABS 1.0 TAB ORAL EVERY SIX HOURS NEEDED Start: October 28, 2024 9:27:0 0 AM UTC End: October 28, 2024 6:34:3 4 PM UTC BRENGChristopher Pickering [id number] on October 28, 2024 6:34:00 PM UTC Discont inued 341968 1273 1039 708 famotidine (PEPCID) 20 MG TABS 10.0 MG ORAL TWICE A DAY Start: October 28, 2024 1:00:0 0 PM UTC End: October 30, 2024 3:13:5 0 PM UTC BRENGChristopher Pickering AREDDEN on October 28, 2024 9:32:00 AM UTC Discont inued 725730 6959 2024 301 rOPINIRole (REQUIP) 0.25 MG TABS 0.5 MG ORAL THREE TIMES A DAY Start: October 28, 2024 1:00:0 0 PM UTC End: October 30, 2024 3:13:5 0 PM UTC BORIS OLIVER on October 28, 2024 9:33:00 AM UTC Discont inued 317734 5341 4099 401 warfarin (COUMADIN) 5 MG TABS 5.0 MG ORAL EVERY THURSDAY AND THURSDAY (COUMADIN) Start: October 28, 2024 9:00:0 0 PM UTC End: October 30, 2024 10:35: 07 AM UTC QUIRINO FREIRE [id number] on October 30, 2024 10:35:00 AM UTC Discont inued 302419 7809 2076 310 warfarin (COUMADIN) 2.5 MG TABS 2.5 MG ORAL EVERY (COUMADIN) Start: October 30, 2024 3:13:5 0 PM UTC End: October 30, 2024 3:13:5 0 PM UTC QUIRINO FREIRE [id number] on October 28, 2024 1:20:00 PM UTC Discont inued 155460 7848 6 310 warfarin (COUMADIN) 2.5 MG TABS 2.5 MG ORAL EVERY THURSDAY AND THURSDAY (COUMADIN) Start: October 29, 2024 9:00:0 0 PM UTC End: October 30, 2024 10:24: 24 AM UTC QUIRINO GRUBER on October 30, 2024 10:25:00 AM UTC Discont inued 0360973 2165 8004 904 sodium chloride 0.9% SOLN 1000. 0 ML IV CONTIN UOUS CONT 125.0 ML/HR Start: October 28, 2024 2:09:0 0 PM UTC End: October 30, 2024 10:13: 28 AM UTC ISMAEL Gonzalez [id number] on October 30, 2024 10:13:00 AM UTC Discont inued 901791 7702 4022 101 ondansetron (ZOFRAN) 8 MG TABS 8.0 MG ORAL THREE TIMES A DAY Start: October 29, 2024 1:00:0 0 AM UTC End: October 29, 2024 1:00:0 0 AM UTC ISMAEL Gonzalez [id number] on October 28, 2024 10:15:00 PM UTC Discont inued Free Text Med Potassium Chloride ER Oral Tablet Extended Release 20 MEQ 20.0 MEQ ORAL ONCE DAILY Start: October 29, 2024 1:00:0 0 PM UTC End: October 29, 2024 1:00:0 0 PM UTC GUEVARA KYLE A [id number] on October 28, 2024 6:40:00 PM UTC Discont inued 074630 7919 4017 688 NORCO 10-325 MG TABS 10.0 TAB ORAL EVERY FOUR HOURS Start: October 28, 2024 8:30:0 0 PM UTC End: October 28, 2024 8:30:0 0 PM UTC GUEVARA KYLE A [id number] on October 28, 2024 7:48:00 PM UTC Discont inued 978296 2421 7065 321 potassium chloride (K-DUR) 10 MEQ CPCR 20.0 MEQ ORAL ONCE DAILY Start: October 29, 2024 1:00:0 0 PM UTC End: October 30, 2024 10:15: 35 AM UT QUIRINO TANI [id number] on October 30, 2024 10:15:00 AM UTC Discont inued 208471 8820 4017 688 NORCO 10-325 MG TABS 1.0 TAB ORAL EVERY FOUR HOURS Start: October 28, 2024 8:00:0 0 PM UTC End: October 30, 2024 10:14: 40 AM UTC QUIRINO TANI [id number] on October 30, 2024 10:14:00 AM UTC Discont inued 134567 7708 4022 101 ondansetron (ZOFRAN) 8 MG TABS 8.0 MG ORAL THREE TIMES A DAY Start: October 28, 2024 10:15: 00 PM UTC End: October 30, 2024 10:15: 35 AM UTC QUIRINO TANI [id number] on October 30, 2024 10:15:00 AM UTC Discont inued 026639 7786 4017 688 NORCO 10-325 MG TABS 1.0 TAB ORAL EVERY FOUR HOURS NEEDED Start: October 30, 2024 10:14: 00 AM UTC End: October 30, 2024 3:13:5 0 PM UT LANI STILES [id number] on October 30, 2024 10:14:00 AM UT Discont inued XXXX XXX0 053 CONSULT (PHARMACY TO DOSE) 1 EA MISC 1.0 EA PHARMA CY TO DOSE PHARMACY CONSULT NEEDED Start: October 30, 2024 10:22: 00 AM UT End: October 30, 2024 3:13:5 0 PM UT ISMAEL Gonzalez [id number] on October 30, 2024 10:23:00 AM UT Discont inued 246256 4509 2076 310 warfarin (COUMADIN) 2.5 MG TABS 2.5 MG ORAL EVERY THURSDAY AND THURSDAY (COUMADIN) Start: October 30, 2024 3:13:5 0 PM UT End: October 30, 2024 3:13:5 0 PM UT QUIRINO GRUBER on October 30, 2024 10:25:00 AM UT SOCIAL HISTORY SOCIAL HISTORY SNOMED-CT Social History Element Description Effective Dates Offered Cessation Comment UpdatedBy [id number] Current Tobacco smoking status Smoker, Current Status Unknown [id number] on October 27, 2024 10:17:23 PM [facility] [id number] Historical Tobacco smoking status Unknown If Ever Smoked [id number] on June 10, 2024 6:41:59 AM UT [id number] Historical Tobacco smoking status Never Smoked [id number] on November 03, 2023 7:23:45 PM UT [id number] Historical Tobacco smoking status Former Smoker [id number] on May 20, 2023 4:14:02 PM UT SOCIAL HISTORY - Gender Sex: Female SOCIAL HISTORY - Sexual Behavior Sexual Orientation Gender Identity SNOMED-CT Description SNOMED-CT Description Activity Level No of Partners Partner Type UpdatedBy [id number] Female [id number] on April 07, 2023 1:59:13 AM UT Comment : SOCIAL HISTORY - Status : status i nformation is not available Intention in Next Year: intention information is not available VITAL SIGNS PATIENT VITAL SIGNS This section displays the mo st recent value for each vital sign as of October 30, 2024 5:25:03 PM [facility] Loinc Code Vital Sign Activity Date Result Updated By 8302-2 Body height October 28, 2024 3:05:32 AM UT 162.56 cm (64.0 in) [id number] on October 28, 2024 3:05:32 AM UTC 34050-9 Body mass index (BMI ) [Ratio] October 28, 2024 3:05:32 AM UTC 33.528 kg/m2 [id number] on October 28, 2024 3:05:32 AM UTC 3140-1 Body Surface Area Derived From Formula October 28, 2024 3:05:32 AM UTC 1.9365 m2 [id number] on October 28, 2024 3:05:32 AM UTC 8310-5 Body temperature October 30, 2024 3:54:00 PM UTC 97.7 [degF] [id number] on October 30, 2024 3:58:15 PM UTC 07639-8 Body weight Measured October 28 3:05:32 AM UTC 88.6 kg (195.0 lb) [id number] on October 28, 2024 3:05:32 AM UTC 8462-4 Diastolic blood pressure October 30, 2024 3:54:00 PM UTC 74.0 mm[Hg] [id number] on October 30, 2024 3:58:15 PM UTC 8867-4 Heart rate October 30, 2024 3:54:00 PM UTC 77 /min [id number] on October 30, 2024 3:58:15 PM UTC 8478-0 Mean blood pressure October 30, 2024 3:54:00 PM UTC 107.0 mm[Hg] [id number] on October 30, 2024 3:58:15 PM UTC 98211-4 Oxygen saturation in Arterial blood by Pulse oximetry October 30, 2024 3:54:00 PM UTC 93.0 % [id number] on October 30, 2024 3:58:15 PM UTC 9279-1 Respiratory rate October 30, 2024 3:54:00 PM UTC 20 /min [id number] on October 30, 2024 3:58:15 PM UTC 8480-6 Systolic blood pressure October 30, 2024 3:54:00 PM UTC 162.0 mm[Hg] [id number] on October 30, 2024 3:58:15 PM UTC 32129-0 Vital capacity [Volume] Respiratory system by Spirometry October 30, 2024 2:00:00 PM UTC 3000.0 ml [id number] on October 30, 2024 3:06:20 PM [facility] PEDIATRIC GROWTH CHART - VITAL SIGNS This section displays Head C ircumference Percentile, Weight for Length Percentile and BMI Percentile Loinc Code Pediatric Measure Age (Months) Result Updat ed By No Pediatric Growth Chart Pe rcentile Information Available. GOALS PATIENT GOALS Goal Assigned Date Updated By DESHAWN ROBLERO REMAINS FREE FROM COMPLICATIONS OF CANCER DURING THE CARE PERIOD October 27, 2024 [id number] on October 28, 2024 3:0 1:38 AM [facility] DESHAWN ROBLERO REMAINS FREE FROM COMPLICATIONS FOR MED-SURG ADMIT DURING THE CARE PERIOD October 27, 2024 [id number] on October 28, 2024 3:0 1:38 AM [facility] DESHAWN ROBLERO REMAINS FREE OF COMPLICATIONS RELATED TO IV THERAPY DURING THE CARE PERIOD October 27, 2024 [id number] on October 28, 2024 3:0 1:38 AM [facility] HEALTH CONCERNS Problems Concern Status Health Concern problem infor mation not available. Smoking Status Status Years Used Consumed packs p er day Health Concern smoking histo ry information not available. Family History Concern Status Health Concern family histor y information not available. ENCOUNTERS ENCOUNTER INFORMATION Reason for Visit ACUTE KIDNEY INJURY, SIGMOID DIVERTICULITIS Admission October 29, 2024 3:58:[address] [address] Discharge October 30, 2024 4:25:00 PM [facility] DISC HARGED TO HOME OR SELF CARE ENCOUNTER DIAGNOSES Notes information is not benito ilable. Code System Diagnosis Onset Date Diagnosis information is not available. ABSTRACT DIAGNOSES Code System Diagnosis Updated By Abstract Diagnosis informati on is not available. CARE TEAM Care [employer] Work Supervisor Role TANI WIN Admitting TANI WIN Primary Attending CARLOS A COATS Referring CARLOS A COATS [facility] HOSPITAL DISCHARGE INSTRUCTION DISCHARGE INSTRUCTION Encounter [id number] Admit Date October 29, 2024 3:58:00 AM [facility] Discharge Date October 30, 2024 4:25:00 PM [facility] PATIENT EDUCATION SUMMARY Patient/Visit Information: Patient Name: DESHAWN ROBLERO Diag: Attending Caregiver: QUIRINO FREIRE Discharge Instruction Sheets Provided: Acute Kidney Injury, Adult BEFAST-Stroke Warning Signs COVID-19 CDC-EN Discharge Information Diverticulitis, Upwm-sm-Pveu Fall Prevention in Hospitals and in the Home [facility] Pain and Responsible Opioid (Pain Medication) Management KYNECT- HELP Medication Side Effects Suicide - Managing your Feelings Urinary Tract Infection, Female Patient Instructions: Followup Appointments/Instructions: HISTORY AND PHYSICAL NOTE HISTORY AND PHYSICAL NOTE Note Title Admission History an d Physical Date Of Service October 28, 2024 2:34:30 AM [facility] Created By [id number] on October 28 2:34:30 AM [facility] Signed By [id number] on October 29 12:17:55 AM [facility] Chief Complaint Right flank pain ANMOL on CKD Diverticulitis Colon cancer with metastases History of Present Illness Deshawn Roblero is a 79-year-old female with a past medical history of metastatic colon cancer, partial colectomy, PE and AFib anticoagulated on Coumadin who presents to the emergency department for evaluation of right flank pain. Patient states she has already been to see her oncology provider regarding this pain and was prescribed Hanson, which did not provide relief. CT abdomen and pelvis with contrast Comparison: CT/DOC/SR - CTA CHEST AORTA - 06/09/24 22:09 EST Findings: Diffuse esophageal mural thickening, nonspecific. Atelectasis. Cardiomegaly without significant pericardial effusion. Coronary artery calcifications. Hepatomegaly with lobulations and nodular contours as well retraction of the capsule concerning for cirrhosis. There is enlarging ill-defined hypoenhancing/low-density mass lesions with calcifications throughout the liver, concerning for progressive metastatic disease. Enlarging maría hepatis adenopathy measuring 1.3 cm series 601, image 73. Contracted gallbladder with wall thickening and stranding. No radiopaque gallstones. No urolithiasis. Right ventral lateral abdominal wall hernia redemonstrated containing multiple loops of nondistended fluid-filled bowel. Colonic diverticulosis with peridiverticular inflammatory changes and fluid stranding noted in the sigmoid colon, consistent with diverticulitis. No evidence of free air or peridiverticular collections. Evidence of prior right colectomy. Fluid-filled loops of Legally authenticated by HEIDI GODWIN 2024-10-27 21:13:28 small bowel with air-fluid levels, without significant distention. Mild enteritis or ileus are considered. No high-grade bowel obstruction. Pelvic contents unremarkable. Normal appendix. Osteopenia with diffuse multilevel spondylosis. Grade 1 anterolisthesis at L4-L5. More conspicuous appearing 2 cm focus at L4 uncertain if this is a hemangioma or possible metastatic lesion. Finding is unchanged from prior. If concern persists consider nuclear medicine bone scan. IMPRESSION: IMPRESSION: 1. Uncomplicated sigmoid diverticulitis. 2. Possible diffuse small bowel ileus or enteritis. 3. Progressive hepatic metastatic disease with enlarging periportal adenopathy. 4. Contracted gallbladder with wall thickening and stranding. Correlation for early cholecystitis advised. Patient elected to discontinue chemo treatments due to her inability to tolerate the side effects, stating I would rather have quality of life instead of quantity. Right flank is tender to palpation. UA shows +2 bacteria, 100 leukocyte esterase. Antibiotics have been prescribed to cover a UTI and the diverticulitis, however, patient is aware that it could possibly be related to metastases. At time of examination, she denies nausea, vomiting, dizziness, diarrhea, dysuria, hematuria, shortness and breath, chest pain, fever and chills. Significant labs upon arrival: Na 129 K 5.1 BG 165 BUN/creatinine 1.7 EGFR 31 AST 198 ALP 245 WBC 13.1. In the ED, patient received Flagyl 500 mg, Rocephin 1 g, orphenadrine 60 mg, Toradol 15 mg and 1 L NS. Vital signs upon arrival: T 98.9, HR 82, RR 20, BP 104/70, O2 sat on room air 98%. 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 Vital Signs -2024 2100 HR 88 BP 109 / 84 O2Sat 98 -2024 1900 HR 84 RR 18 BP 100 / 65 O2Sat 98 1755 T 98.9 RR 20 Physical Exam Narrative General: alert and oriented, no acute distress Neuro: awake, alert, no apparent focal deficits Eye: normal conjunctiva HENT: normocephalic, hemangioma on tongue Neck: no JVD Lungs: symmetrical chest rise, non-labored breathing Heart: AFib Abdomen: nondistended MSK: normal range of motion and strength, RLE swollen; patient states baseline Skin: warm, dry, no rashes or lesions Psych: cooperative, normal mood and affect Lab Results [address] Scanning [id number] 2052 Urinalysis COLOR Drk Yellow APPEAR Hazy GLUCOSE Norm BILIRUB 1 KETONE 5 SP GRAV 1.025 (H) BLOOD 10 PH 5 PROTEIN 30 UROBIL 1 NITRITE Negative ULEU 100 CULTURE? Yes RBC 0-2 WBC 1-5 EPITH Rare BACTERIA 2+ 1931 Chemistry NA 129 (L) K 5.1 (H) CHLORIDE 93 (L) CO2 29.3 AGAP 11.8 GLUC 165 (H) BUN 22 (H) CREAT 1.7 (H) GFR 31 (L) OSMO BASIM 276 TP 7.3 ALB 2.5 (L) GLOB 4.8 ALB/GLOB 0.5 (L) CALCIUM 9.2 BILI TOT 0.70 AST 198 (H) ALT 22 ALP 245 (H) 1931 Hematology WBC 13.1 (H) RBCS 3.5 (L) HGB 10.2 (L) HCT 31.8 (L) MCV 91.9 MCH 29.5 MCHC 32.1 RDW 14.2 (H) PLT S 234 MPV 9.2 NEUT% 82.3 (H) LYMPH% 6.7 (L) MONO% 7.2 EOS% 3.1 (H) BASO% 0.3 IG% 0.4 NRBC% 0.0 NEUT# 10.7 (H) LYMPH# 0.9 (L) MONO# 0.9 (H) EOS# 0.4 (H) BASO# 0.0 IG# 0.05 NRBC# 0.00 MANDIFF? No Procedures and Surgeries None Assessment/Plan Right CVA pain UTI ANMOL on CKD 3 B Dehydration Hyponatremia Hyperkalemia --IVF --monitor BUN/creatinine --monitor electrolytes --avoid nephrotoxic agents --renal dosing when available/appropriate --urine culture pending --hydrocodone 10 mg/acetaminophen 325 mg p.r.n. pain Uncomplicated diverticulitis, asymptomatic Possible ileus History of partial right colectomy Leukocytosis --ceftriaxone --Flagyl Hypertension AFib History of PE --continue SOCK DRIER metoprolol --continue SOCK DRIER Coumadin --continue SOCK DRIER furosemide --check INR in a.m. Code status: DNR/DNI I confirmed that the patient's Advance Care Plan is present, code status is documented, or surrogate decision maker is listed in the patients medical record. I have utilized all available immediate resources to obtain, update, or review the patients current medications Current Code Status of Patient DNI - Do Not Intubate, DNR - Do Not Resuscitate Electronically signed by BORIS Pickering APRN on 0515 I hereby attest the note that was written on this patient accurately reflects the notations made when patient was examined. 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 MG on 2016 PROGRESS NOTE PROGRESS NOTE Note Title Progress Note Date Of Service October 29, 2024 3:18:46 PM UTC Created By [id number] on October 29 3:18:46 PM UTC Signed By [id number] on October 29 3:26:31 PM UTC Chief Complaint Right flank pain ANMOL on CKD Diverticulitis Colon cancer with metastases History of Present Illness Patient seen and examined at bedside this morning She reports ongoing nausea and vomiting Still having abdominal discomfort Vital Signs 0741 T 98.7 HR 72 RR 16 BP 107 / 70 O2Sat 97 0416 T 97 (L) HR 70 RR 20 BP 105 / 51 (L) O2Sat 95 Intake and Output previous current encounter day day cumulative Intake 240 100 340 Output 3 - 3 Balance 237 100 337 Physical Exam Narrative General: alert and oriented, obviously ill Neuro: awake, alert, no apparent focal deficits Eye: normal conjunctiva HENT: normocephalic, atraumatic Neck: no JVD Lungs: symmetrical chest rise, non-labored breathing Heart: normal rate, normal rhythm Abdomen: nondistended MSK: normal range of motion and strength Skin: warm, dry, no rashes or lesions Psych: cooperative, normal mood and affect Lab Results 0400 Chemistry NA 133 (L) K 4.7 CHLORIDE 101 CO2 25.0 AGAP 11.7 GLUC 99 BUN 21 (H) CREAT 1.5 (H) GFR 36 (L) OSMO BASIM 280 TP 6.4 ALB 2.0 (L) GLOB 4.4 ALB/GLOB 0.5 (L) CALCIUM 9.1 BILI TOT 0.60 AST 95 (H) ALT 14 ALP 207 (H) 0400 Hematology WBC 9.2 RBCS 2.9 (L) HGB 8.6 (L) HCT 27.3 (L) MCV 93.2 MCH 29.4 MCHC 31.5 (L) RDW 14.4 (H) PLT S 177 MPV 9.1 NEUT% 78.4 (H) LYMPH% 10.1 (L) MONO% 8.3 EOS% 2.2 BASO% 0.3 IG% 0.7 NRBC% 0.0 NEUT# 7.2 (H) LYMPH# 0.9 (L) MONO# 0.8 EOS# 0.2 BASO# 0.0 IG# 0.06 NRBC# 0.00 MANDIFF? No 0400 Coagulation PT 28.1 (H) INR 2.8 (H) Imaging Results CT ABD PEL W (IV CONT ONLY) FINAL REPORT TECHNIQUE: null CLINICAL HISTORY: Abdominal Pain COMPARISON: null FINDINGS: CT abdomen and pelvis with contrast Comparison: CT/DOC/SR - CTA CHEST AORTA - 06/09/24 22:09 EST Findings: Diffuse esophageal mural thickening, nonspecific. Atelectasis. Cardiomegaly without significant pericardial effusion. Coronary artery calcifications. Hepatomegaly with lobulations and nodular contours as well retraction of the capsule concerning for cirrhosis. There is enlarging ill-defined hypoenhancing/low-density mass lesions with calcifications throughout the liver, concerning for progressive metastatic disease. Enlarging maría hepatis adenopathy measuring 1.3 cm series 601, image 73. Contracted gallbladder with wall thickening and stranding. No radiopaque gallstones. No urolithiasis. Right ventral lateral abdominal wall hernia redemonstrated containing multiple loops of nondistended fluid-filled bowel. Colonic diverticulosis with peridiverticular inflammatory changes and fluid stranding noted in the sigmoid colon, consistent with diverticulitis. No evidence of free air or peridiverticular collections. Evidence of prior right colectomy. Fluid-filled loops of Legally authenticated by HEIDI GODWIN 2024-10-27 21:13:28 small bowel with air-fluid levels, without significant distention. Mild enteritis or ileus are considered. No high-grade bowel obstruction. Pelvic contents unremarkable. Normal appendix. Osteopenia with diffuse multilevel spondylosis. Grade 1 anterolisthesis at L4-L5. More conspicuous appearing 2 cm focus at L4 uncertain if this is a hemangioma or possible metastatic lesion. Finding is unchanged from prior. If concern persists consider nuclear medicine bone scan. IMPRESSION: IMPRESSION: 1. Uncomplicated sigmoid diverticulitis. 2. Possible diffuse small bowel ileus or enteritis. 3. Progressive hepatic metastatic disease with enlarging periportal adenopathy. 4. Contracted gallbladder with wall thickening and stranding. Correlation for early cholecystitis advised. 5. Additional findings as described Problem List Primary malignant neoplasm of colon Paroxysmal atrial fibrillation Acute cystitis Acute kidney injury Diverticulitis Right flank pain Assessment/Plan # Acute Cystitis with right flank pain--POA -complicated by dehydration -UA + with culture no growth times 24 hours -no signs or symptoms of sepsis -good urine output -continue Rocephin 1 g daily for a total of a 5 day treatment plan -encouraged aggressive p.o. hydration # acute diverticulitis--POA # concern for underlying ileus/enteritis - status post partial right colectomy secondary to cancer; now with recurrence and metastases and not seeking chemo treatment - CT imaging suggestive of inflammation vs infection with underlying ileus - continue Flagyl 500 mg q.8 hours and Rocephin 1 g q.12 - monitor LFTs and infectious markers closely -10/29: Ongoing nausea and vomiting, we will keep in-house and continue IV fluids and IV antiemetics. Add Phenergan 12.5 mg IV q.6 PRN # pAF--POA - C=3 (age, gender); continue Eliquis - currently rate controlled and in sinus rhythm by exam; continue home dose of metoprolol - continue telemetry monitoring Feeding: Oral/ regular Thromboembolic ppx: Eliquis Ulcer ppx: Protonix Code Status: DNR/ DNI Active Medications warfarin (COUMADIN) 2.5 MG PO CTWT Dose verified with patient and home pha rmacy warfarin (COUMADIN) 2.5 MG PO CSS Dose verified with patient and home pha rmacy sodium chloride 0.9% FLUSH 10 ML IV PUSH PRN for FLUSH IV LINE MYLANTA DS ORAL 30 ML PO Q6HPRN for HEARTBURN INDIGESTION MIRALAX PACKET 17 GM PO DAILYPRN for CONSTIPATION furosemide (LASIX) 40 MG PO DAILYPRN for EDEMA, PERIPHERAL acetaminophen (TYLENOL) 650 MG PO Q6HPRN for MILD PAIN 1-3 PAIN SCALE NOT TO EXCEED 4 GRAMS IN 24 HOURS warfarin (COUMADIN) 5 MG PO CMF Dose verified with patient and home pha rmacy cefTRIAXone (ROCEPHIN) 1 GM IV Q24H 100 ML/HR sodium chloride 0.9% MB+ 50 ML metroNIDAZOLE (FLAGYL) PREMIX 500 MG/100 ML 500 MG IV Q8H 100 ML/HR ondansetron (ZOFRAN) INJ 4 MG/2 ML 4 MG IV PUSH Q6HPRN for NAUSEA VOMITING rOPINIRole (REQUIP) 0.5 MG PO TID potassium chloride (K-DUR) 20 MEQ PO DAILY famotidine (PEPCID) 10 MG PO BID ondansetron (ZOFRAN) 8 MG PO TID NOZIN NASAL DATABASE MANAGEMENT SPECIALIST POPSWAB 1 EA NASAL BID APPLY TO EACH NOSTRIL NORCO 10-325 MG 1 TAB PO Q4H sodium chloride 0.9% 1000 ML IVC Continuous 125 ML/HR Electronically signed by CHILANGO MG on 1126 Note Title Progress Note Date Of Service October 28, 2024 2:06:56 PM [facility] Created By [id number] on October 28 2:06:56 PM [facility] Signed By [id number] on October 29 12:17:33 AM [place] Chief Complaint Right flank pain ANMOL on CKD Diverticulitis Colon cancer with metastases History of Present Illness Deshawn Roblero is a 79-year-old female with a past medical history of metastatic colon cancer, partial colectomy, PE and AFib anticoagulated on Coumadin who presents to the emergency department for evaluation of right flank pain. Patient elected to discontinue chemo treatments due to her inability to tolerate the side effects, stating I would rather have quality of life instead of quantity. UA shows +2 bacteria, 100 leuks, with culture pending. Antibiotics have been prescribed to cover a UTI and the diverticulitis, however, patient is aware that it could possibly be related to metastases. In the ED, patient received Flagyl 500 mg, Rocephin 1 g, orphenadrine 60 mg, Toradol 15 mg and 1 L NS. Vital signs upon arrival: T 98.9, HR 82, RR 20, BP 104/70, O2 sat on room air 98%. 10/28: Patient seen and examined at the bedside. You significant change overnight Vital Signs 0747 T 97 (L) HR 69 RR 18 BP 111 / 66 O2Sat 98 0332 T 98 (L) HR 71 RR 20 BP 101 / 73 O2Sat 97 Intake and Output previous current encounter day day cumulative Intake - - - Output - 1 1 Balance - (-1) (-1) Physical Exam Narrative General: alert and oriented, obviously ill Neuro: awake, alert, no apparent focal deficits Eye: normal conjunctiva HENT: normocephalic, atraumatic Neck: no JVD Lungs: symmetrical chest rise, non-labored breathing Heart: normal rate, normal rhythm Abdomen: nondistended MSK: normal range of motion and strength Skin: warm, dry, no rashes or lesions Psych: cooperative, normal mood and affect Lab Results 0642 Chemistry NA 132 (L) K 4.7 CHLORIDE 99 CO2 26.9 AGAP 10.8 GLUC 112 BUN 22 (H) CREAT 1.7 (H) GFR 31 (L) OSMO BASIM 279 TP 6.2 (L) ALB 2.0 (L) GLOB 4.2 ALB/GLOB 0.5 (L) CALCIUM 8.5 BILI TOT 0.70 AST 156 (H) ALT 18 ALP 212 (H) MG 2.1 0642 Hematology WBC 8.8 RBCS 3.0 (L) HGB 8.6 (L) HCT 27.8 (L) MCV 92.1 MCH 28.5 MCHC 30.9 (L) RDW 14.4 (H) PLT S 180 MPV 9.4 NEUT% 79.9 (H) LYMPH% 7.6 (L) MONO% 9.0 EOS% 2.7 BASO% 0.2 IG% 0.6 NRBC% 0.0 NEUT# 7.0 (H) LYMPH# 0.7 (L) MONO# 0.8 EOS# 0.2 BASO# 0.0 IG# 0.05 NRBC# 0.00 MANDIFF? No 0642 Coagulation PT 25.2 (H) INR 2.5 (H) 2218 Special Chemistry LACTATE 0.[address] Scanning [id number] 2052 Urinalysis COLOR Drk Yellow APPEAR Hazy GLUCOSE Norm BILIRUB 1 KETONE 5 SP GRAV 1.025 (H) BLOOD 10 PH 5 PROTEIN 30 UROBIL 1 NITRITE Negative ULEU 100 CULTURE? Yes RBC 0-2 WBC 1-5 EPITH Rare BACTERIA 2+ 1931 Chemistry NA 129 (L) K 5.1 (H) CHLORIDE 93 (L) CO2 29.3 AGAP 11.8 GLUC 165 (H) BUN 22 (H) CREAT 1.7 (H) GFR 31 (L) OSMO BASIM 276 TP 7.3 ALB 2.5 (L) GLOB 4.8 ALB/GLOB 0.5 (L) CALCIUM 9.2 BILI TOT 0.70 AST 198 (H) ALT 22 ALP 245 (H) 1931 Hematology WBC 13.1 (H) RBCS 3.5 (L) HGB 10.2 (L) HCT 31.8 (L) MCV 91.9 MCH 29.5 MCHC 32.1 RDW 14.2 (H) PLT S 234 MPV 9.2 NEUT% 82.3 (H) LYMPH% 6.7 (L) MONO% 7.2 EOS% 3.1 (H) BASO% 0.3 IG% 0.4 NRBC% 0.0 NEUT# 10.7 (H) LYMPH# 0.9 (L) MONO# 0.9 (H) EOS# 0.4 (H) BASO# 0.0 IG# 0.05 NRBC# 0.00 MANDIFF? No Imaging Results CT abdomen and pelvis with contrast Findings: Diffuse esophageal mural thickening, nonspecific. Atelectasis. Cardiomegaly without significant pericardial effusion. Coronary artery calcifications. Hepatomegaly with lobulations and nodular contours as well retraction of the capsule concerning for cirrhosis. There is enlarging ill-defined hypo enhancing/low-density mass lesions with calcifications throughout the liver, concerning for progressive metastatic disease. Enlarging maría hepatis adenopathy measuring 1.3 cm series 601, image 73. Contracted gallbladder with wall thickening and stranding. No radiopaque gallstones. No urolithiasis. Right ventral lateral abdominal wall hernia redemonstrated containing multiple loops of nondistended fluid-filled bowel. Colonic diverticulosis with yanelis diverticular inflammatory changes and fluid stranding noted in the sigmoid colon, consistent with diverticulitis. No evidence of free air or yanelis diverticular collections. Evidence of prior right colectomy. Fluid-filled loops of small bowel with air-fluid levels, without significant distention. Mild enteritis or ileus are considered. No high-grade bowel obstruction. Pelvic contents unremarkable. Normal appendix. Osteopenia with diffuse multilevel spondylosis. Grade 1 anterolisthesis at L4-L5. More conspicuous appearing 2 cm focus at L4 uncertain if this is a hemangioma or possible metastatic lesion. Finding is unchanged from prior. If concern persists consider nuclear medicine bone scan. IMPRESSION: 1. Uncomplicated sigmoid diverticulitis. 2. Possible diffuse small bowel ileus or enteritis. 3. Progressive hepatic metastatic disease with enlarging periportal adenopathy. 4. Contracted gallbladder with wall thickening and stranding. Correlation for early cholecystitis advised. Problem List Primary malignant neoplasm of colon Paroxysmal atrial fibrillation Acute cystitis Acute kidney injury Diverticulitis Right flank pain Assessment/Plan # Acute Cystitis with right flank pain--POA -complicated by dehydration -UA + with culture pending -no signs or symptoms of sepsis -good urine output -continue Rocephin 1 g daily for a total of a 5 day treatment plan -encouraged aggressive p.o. hydration # acute diverticulitis--POA - status post partial right colectomy secondary to cancer; now with recurrence and metastases and not seeking chemo treatment - CT imaging suggestive of inflammation vs infection with underlying ileus - continue Flagyl 500 mg q.8 hours and Rocephin 1 g q.12 - monitor LFTs and infectious markers closely # pAF--POA - C=3 (age, gender); continue Eliquis - currently rate controlled and in sinus rhythm by exam; continue home dose of metoprolol - continue telemetry monitoring Feeding: Oral/ regular Vital signs per protocol Monitor & trend: electrolytes, infection markers, liver function Thromboembolic ppx: Eliquis Ulcer ppx: Protonix Glycemic control: Controlled/ SSI Bowel regimen: Miralax Code Status: DNR/ DNI Advanced Care Plan: I confirmed that the patient's Advance Care Plan is present, code status is documented, or surrogate decision maker is listed in the patients medical record. I have utilized all available immediate resources to obtain, update, or review the patients current medications (including all prescriptions, [id number] products, herbals, cannabis/cannabidiol products, and vitamin/mineral/dietary (nutritional) supplements). 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 SPECIALIST POPSWAB 1 EA NASAL BID APPLY TO EACH NOSTRIL rOPINIRole (REQUIP) 0.5 MG PO TID warfarin (COUMADIN) 2.5 MG PO CSS Dose verified with patient and home pha rmacy warfarin (COUMADIN) 2.5 MG PO CTWT Dose verified with patient and home pha rmacy warfarin (COUMADIN) 5 MG PO CMF Dose verified with patient and home pha rmacy cefTRIAXone (ROCEPHIN) 1 GM IV Q24H 100 ML/HR sodium chloride 0.9% MB+ 50 ML metroNIDAZOLE (FLAGYL) PREMIX 500 MG/100 ML 500 MG IV Q8H 100 ML/HR sodium chloride 0.9% 1000 ML IV Continuous 75 ML/HR acetaminophen (TYLENOL) 650 MG PO Q6HPRN for MILD PAIN 1-3 PAIN SCALE NOT TO EXCEED 4 GRAMS IN 24 HOURS furosemide (LASIX) 40 MG PO DAILYPRN for EDEMA, PERIPHERAL MIRALAX PACKET 17 GM PO DAILYPRN for CONSTIPATION MYLANTA DS ORAL 30 ML PO Q6HPRN for HEARTBURN INDIGESTION NORCO 10-325 MG 1 TAB PO Q6HPRN for SEVERE PAIN 7-10 PAIN SCALE ondansetron (ZOFRAN) INJ 4 MG/2 ML 4 MG IV PUSH Q6HPRN for NAUSEA VOMITING sodium chloride 0.9% FLUSH 10 ML IV PUSH PRN for FLUSH IV LINE Time spent with Patient Total [id number] time spent with patient/ family discussing diagnosis, testing, treatment plan and exam: 20 minutes Electronically signed by ISMAEL JENKINS on 1151 I hereby attest the note that was written on this patient accurately reflects the notations made when patient was examined. 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 Role on Team Status Start Date End Date Update d By QUIRINO MG Attending normal October 28, 2024 2:20:20 AM [facility] October 30, 2024 4:25:00 PM [facility] [id number] on October 28, 2024 2:20:20 AM [facility] QUIRINO MG Admitting normal October 28, 2024 2:20:20 AM [facility] October 30, 2024 4:25:00 PM [facility] [id number] on October 28, 2024 2:20:20 AM [facility] PAULY Falcon Referring normal October 27 11:02:22 PM [facility] October 30, 2024 4:25:00 PM [facility] [id number] on October 28, 2024 2:20:20 AM [facility] ARACELI ASENCIO V Attending normal October 27, 2024 11:02:22 PM [facility] October 28, 2024 2:20:20 AM [facility] [id number] on October 28, 2024 2:20:20 AM [facility] ARACELI ASENCIO V Admitting normal October 27, 2024 11:02:22 PM [facility] October 28, 2024 2:20:20 AM [facility] [id number] on October 28, 2024 2:20:20 AM [facility] PAULY Falcon PCP normal October 27 9:43:47 PM [facility] October 28, 2024 4:09:44 AM [facility] [id number] on October 28, 2024 2:20:20 AM [facility]
--- OUTSIDE RECORDS SUMMARY | 2024-11-01 10:17 | XMS_ITS | Continuity of Care Document ---
Author Organization [facility] Address [address] [place] [address] Care Team Providers Care Application Helper Name Role Phone ADDY GONZALES General Surgeon CARLOS A COATS Primary Care Provider [phone] VERONIKA RIVER Chair Finisher Assessment No assessment recorded. Plan of Treatment Reminders Order Date Submit Date Provider Last Modified By Organization Details Last Modified Time Details Appointments OV EST 30 2024 01:00P M Hanna Snider PA-C Not available Not available Not available Lab culture, stool [email or web address] [facility] [address] [facility], [address] [place], [address], 09/09/2024 11:40:08 O&P (ova & parasites ), stool [email or web address] [facility] [address] [facility], [address] [place], [address], 09/09/2024 11:40:09 C diff screen, stool, reflex PCR 2024 025 [email or web address] [facility], [address] [place], [address], 09/09/2024 11:40:09 CBC w/ auto diff 2024 025 [facility], [address] [place], [address], 09/02/2024 16:09:44 [facility], [facility] or [facility] [address], [place], [address], 09/02/2024 14:45:24 Referral None recorded. Procedures None recorded. Surgeries None recorded. Imaging None recorded. Medication Orders ondansetr on 8 mg disintegr ating tablet [address] [facility] [address], [address] [place], [address], 09/02/2024 12:29:05 Pepcid 20 mg tablet [address] [facility] [address], [address] [place], [address], 09/02/2024 12:29:05 Patient TargetsNo targets recorded. Patient InstructionsNo instructions recorded. Reason for Referral None Reported. Problems Name Problem SNOMED Code Status Onset Date Resolution Date Notes Provider Name and Address Organization Details Recorded Time Headache 93842449 Active 2024 Christine Farfan [facility], [place] - [facility] & [place] 5 10:27:12 Metastatic malignant neoplasm to liver 25243906 Active 2022 Ghassan Lieberman PA-C [address] , [place], [address] , [place] - [facility] - [place] & [place] 3 14:27:25 Mass of colon 536145766 Active 2022 Ghassan Lieberman PA-C [address] , [place], [address] , [place] - [facility] - [place] & [place] 3 14:27:30 Anemia 043035243 Active 2022 Ghassan Lieberman PA-C [address], [place], [address] , [place] - [facility] & [place] 3 14:27:36 Nausea and vomiting 32313971 Active 2022 Ghassan Lieberman PA-C [address] , [place], [address] , [facility] & [place] 3 14:27:46 Unintentional weight loss 211891197 Active 2022 Ghassan Lieberman PA-C [address] , [place], [address] , [facility] & [place] 3 16:13:07 Night sweats 42981775 Active 2022 Ghassan Lieberman PA-C [address] , [place], [address] , [facility] & [place] 3 16:13:12 Problem Notes None recorded. Procedures Surgical History Date Name Laterality Status Provider Name and Address Organization Details Recorded Time 04/29/20 23 Venipuncture completed Hanna Snider PA-C [address] , [place], [address], [facility] & [place] 04/27/2023 15:05:29 04/15/20 23 Venipuncture completed Stephanie Maravilla [facility] & [place] 04/15/2023 15:24:55 hysterectomy completed Laurel Samuels [facility] & [place] 03/11/2023 15:30:22 extraction of cataract completed Laurel Mary Ellencaio [facility] & [place] 03/11/2023 15:30:36 excision of colon completed Loree Tadeo [facility] & [place] 04/21/2023 11:32:07 Imaging Results None recorded. Procedure Notes None recorded. Medical Equipment None Reported. Allergies Allergen ID Allergen Name Allergen Category Reaction Reaction Severity Criticality Documentation Date Start Date Code Code System Note Provider Name and Address Organization Details Recorded Time 41560 tetracycl ine medicatio n hives Not available high 02/19/2023 77898 RxNorm [facility]ler [email or web address] & [place] 3 14:03:33 Medications Name Sig Start Date [...] Available Not Available No t Available hydrocodone 10 mg-acetamin ophen 325 mg tablet TAKE 1 OR 2 TABLETS BY MOUTH EVERY 4 TO 6 HOURS NEEDED FOR PAIN active Not Available Not Available No t [...] /min 137 mm[Hg] 86 mm[Hg] Laurel Samuels [facility] & [place] 5 12:09:03 Social History Question Answer Notes LastModified by Organizat ion Details LastModified Time Tobacco Smoking Status Never Smoker Brandy Maciel [facility] & [place] 02/19/2023 14:02:59 What Is Your Level Of Caffeine Consumption? None [email or web address] Information not available 02/19/2023 What Was The Date Of Your Most Recent Tobacco Screening? 11/23/2023 [email or web address] Information not available 11/23/2023 Has Tobacco Cessation Counseling Been Provided? No [email or web address] Information not available 07/13/2023 Sex: Unknown Functional Status Question Answer Note LastModified by Organizat ion Details LastModified Time Do you use any illicit or recreational drugs? No [email or web address] Information not available 02/19/2023 Do you or have you ever used any other forms of tobacco or nicotine? No [email or web address] Information not available 02/19/2023 What is your level of alcohol consumption? None [email or web address] Information not available 02/19/2023 Mental Status None recorded. Family History Nothing Reported. Medical History No medical history recorded. Gynecological HistoryNo gynecological history recorded. Obstetrics History GPAL:G 0 P 0 0 0 0 Immunizations Vaccine Type Date Status Note Provider Nam e and Address Organization Details Recorded Time pneumococcal polysaccharide PPV23 7 completed Stephanie Maravilla [facility], [place] - [facility] - [place] & [place] 12/21/2023 09:56:34 Past Encounters Encounter ID Performer Location Encounter Start Date Encounter Closed Date Diagnosis/Indication Diagnosis SNOMED-CT Code Diagnosis ICD10 Code Diagnosis Note [id number] Hanna Snider PA-C [facility] [address] [place] [address] 08/10/2024 09:37:37 08/10/2024 10:29:37 Malignant tumor of ascending colon 792308536 C18.2 CT scan of the abdomen and [...] 8.2 hematocrit 29.0. MCV 67.9. Platelet count 634636. Normal cell differenti al. Low serum folate [...] study published in September 2022 in the [place] [facility] of combined Avastin therapy with [...] liver lesions. Metastatic malignant neoplasm to liver 67290001 C78.7 CT scan of the abdomen and [...] patient is a candidate for radiation Nausea 536551817 R11.0 As needed Zofran and Phenergan prescribed . Discussed trying scopolamin e patches but her insurance wouldn't cover. She is taking Zofran with relief. Pain due t o neoplastic disease 1445500337 9102 G89.3 She is taking hydrocodon e 7.5 mg b.i.d. Discussed taking medication every 4-6 hours as needed. Anemia 176047281 D64.9 Right-side d colon mass concerning for malignancy . Will assess for any signs of iron deficiency . Hemoglobin previously 8.0. Concern for blood loss from colon mass. Patient reports dark stools. Labs on August 10, 2024 with hemoglobin slightly low at 11.9. She is receiving infusional iron as needed. Adopted 703246967 Z62.89 8 Patient is adopted and discussed hereditary gene panel. Patient does have family history of her son having bladder cancer. [facility] hereditary panel sent Antineopla stic chemotherapy regimen 980654913 Z51.11 Week 1 5FU Leucovorin Vectibix on [...] monitor for tolerabili ty and toxicity. Hypokalemia 05935134 E87 .6 Currently taking for potassium 20 mEq daily. Will follow up labs. Mixed anxi ety and depressive disorder 087100924 F41.8 Patient returns on November 23, 2023. [...] reports depression has improved. Atopic conjunctivitis 23 4869529 H10.12 Conjunctiv itis due to Vectibix. This is improving. Iron defic iency anemia 25178743 D50.9 Currently receiving infusional iron as needed. Will continue to monitor. Insomnia 017643862 G47.0 0 Patient has had difficulty sleeping for most of her life. She has tried multiple medication s without relief. She is tried Mirtazapin e and lorazepam without improvemen t of insomnia. Discussed trying trazodone instead. Restless legs 98363038 G 25.81 Patient taking Requip for restless legs. Generalized rash 5293857 06 R21 Patient with rash due to Vectibix. This is improving. Atrial fibrillation 4943 6004 I48.91 Patient has been diagnosed with congestive heart failure and atrial fibrillati on. She has been started on Coumadin. She is following with the Coumadin clinic at [facility]. Congestive heart failure 37931743 I50.9 Patient has been diagnosed with congestive heart failure. She has started lasix and is following with a cardiologi st. Cachexia 031947111 R64 Patient has had decreased appetite and weight loss. She is drinking nutritiona l supplement s. Discussed appetite stimulant. Patient previously refused. She has started on Megace. Will continue to monitor History of deep vein thrombosis 301652643 Z86.718 Patient developed right lower extremity pain [...] repeat venous duplex. Drug therapy finding 309 254646 Z79.01 She continues on Coumadin due to a fib. She is following with the Coumadin clinic at [facility]. [id number] Hanna Snider PA-C [facility] [address] [place] [address] 08/25/2024 09:02:23 08/25/2024 09:51:52 Antineoplastic chemotherapy regimen 011487468 Z51.11 Week 1 5FU Leucovorin Vectibix on [...] and toxicity. Malignant tumor of ascending colon 857156937 C18.2 CT scan of the abdomen and [...] 8.2 hematocrit 29.0. MCV 67.9. Platelet count 030032. Normal cell differenti al. Low serum folate [...] study published in September 2022 in the [place] [facility] of combined Avastin therapy with [...] liver lesions. Metastatic malignant neoplasm to liver 18721864 C78.7 CT scan of the abdomen and [...] patient is a candidate for radiation Nausea 464004045 R11.0 As needed Zofran and Phenergan prescribed . Discussed trying scopolamin e patches but her insurance wouldn't cover. She is taking Zofran with relief. Pain due t o neoplastic disease 5805193277 9102 G89.3 She is taking hydrocodon e [...] does take her current medication s Anemia 381673556 D64.9 Right-side d colon mass concerning for malignancy . Will assess for any signs of iron deficiency . Hemoglobin previously 8.0. Concern for blood loss from colon mass. Patient reports dark stools. Labs on August 10, 2024 with hemoglobin slightly low at 11.9. She is receiving infusional iron as needed. Adopted 090682598 Z62.89 8 Patient is adopted and discussed hereditary gene panel. Patient does have family history of her son having bladder cancer. [facility] hereditary panel sent Hypokalemia 99863638 E87 .6 Currently taking for potassium 20 mEq daily. Will follow up labs. Mixed anxi ety and depressive disorder 758801687 F41.8 Patient returns on November 23, 2023. [...] reports depression has improved. Atopic conjunctivitis 23 5534126 H10.12 Conjunctiv itis due to Vectibix. This is improving. Iron defic iency anemia 15987129 D50.9 Receiving infusional iron as needed. Will continue to monitor. Insomnia 770318878 G47.0 0 Patient has had difficulty sleeping for most of her life. She has tried multiple medication s without relief. She is tried Mirtazapin e and lorazepam without improvemen t of insomnia. Discussed trying trazodone instead. Restless legs 85593550 G 25.81 Patient taking Requip for restless legs. Generalized rash 3471103 06 R21 Rash due to Vectibix. This has improved. Atrial fibrillation 4943 6004 I48.91 Patient has been diagnosed with congestive heart failure and atrial fibrillati on. She has been started on Coumadin. She is following with the Coumadin clinic at [facility]. Congestive heart failure 48976248 I50.9 Patient has been diagnosed with congestive heart failure. She has started lasix and is following with a cardiologi st. Cachexia 977021708 R64 Patient has had decreased appetite and weight loss. She is drinking nutritiona l supplement s. Discussed appetite stimulant. Patient previously refused. She has started on Megace. She does not like the taste of Megace. Discussed Megace tablets instead of liquid but patient declines at this time. Will continue to monitor History of deep vein thrombosis 595102924 Z86.718 Patient developed right lower extremity pain [...] repeat venous duplex. Drug therapy finding 309 495919 Z79.01 She continues on Coumadin due to a fib. She is following with the Coumadin clinic at [facility]. Acute post traumatic headache 1530357179 93533 G44.319 Patient returns on August 25, 2024. [...] Internatio nal normalized ratio above reference range 025027006 R79.1 Patient returns on August 25, 2024. She is on Coumadin for atrial fibrillati on and her INR is elevated. She is going to the Coumadin Clinic for management . INR 8 today. She is going to hold Coumadin and contact Coumadin Clinic for directions today. Denies any bleeding at this time. [id number] Hanna Snider PA-C [facility] [address] [place] [address] 09/02/2024 11:29:36 09/02/2024 12:07:33 Antineoplastic chemotherapy regimen 097266879 Z51.11 Week 1 5FU Leucovorin Vectibix on [...] Will monitor for tolerabili ty and toxicity.Chante murray returns on September 02, 2024. Patient with increased diarrhea, nausea, and vomiting for the past 4 days. Discussed dose reducing Irinotecan with her next chemothera py cycle. Will follow up. Malignant tumor of ascending colon 169892628 C18.2 CT scan of the abdomen and [...] 8.2 hematocrit 29.0. MCV 67.9. Platelet count 814155. Normal cell differenti al. Low serum folate [...] study published in September 2022 in the [place] [facility] of combined Avastin therapy with [...] liver lesions. Metastatic malignant neoplasm to liver 29735359 C78.7 CT scan of the abdomen and [...] patient is a candidate for radiation Nausea 351493589 R11.0 As needed Zofran and Phenergan prescribed [...] ons. Pain due t o neoplastic disease 5695553793 9102 G89.3 She is taking hydrocodon e [...] tab po every 3-4 hours instead. Anemia 209473671 D64.9 Right-side d colon mass concerning for malignancy . Will assess for any signs of iron deficiency . Hemoglobin previously 8.0. Concern for blood loss from colon mass. Patient reports dark stools. Labs on August 10, 2024 with hemoglobin slightly low at 11.9. She is receiving infusional iron as needed. Adopted 202954494 Z62.89 8 Patient is adopted and discussed hereditary gene panel. Patient does have family history of her son having bladder cancer. [facility] hereditary panel sent Hypokalemia 44142346 E87 .6 Currently taking for potassium 20 mEq daily. Will follow up labs. Mixed anxi ety and depressive disorder 283081870 F41.8 Patient returns on November 23, 2023. [...] reports depression has improved. Atopic conjunctivitis 23 5412633 H10.12 Conjunctiv itis due to Vectibix. This is improving. Iron defic iency anemia 58313530 D50.9 Receiving infusional iron as needed. Will continue to monitor. Insomnia 464706547 G47.0 0 Patient has had difficulty sleeping for most of her life. She has tried multiple medication s without relief. She is tried Mirtazapin e and lorazepam without improvemen t of insomnia. Discussed trying trazodone instead. Restless legs 30782046 G 25.81 Patient taking Requip for restless legs. Generalized rash 1559734 06 R21 Rash due to Vectibix. This has improved. Atrial fibrillation 4943 6004 I48.91 Patient has been diagnosed with congestive heart failure and atrial fibrillati on. She has been started on Coumadin. She is following with the Coumadin clinic at [facility]. Congestive heart failure 18506674 I50.9 Patient has been diagnosed with congestive heart failure. She has started lasix and is following with a cardiologi st. Cachexia 131131871 R64 Patient has had decreased appetite and weight loss. She is drinking nutritiona l supplement s. Discussed appetite stimulant. Patient previously refused. She has started on Megace. She does not like the taste of Megace. Discussed Megace tablets instead of liquid but patient declines at this time. Will continue to monitor History of deep vein thrombosis 943339824 Z86.718 Patient developed right lower extremity pain [...] repeat venous duplex. Drug therapy finding 309 681796 Z79.01 She continues on Coumadin due to a fib. She is following with the Coumadin clinic at [facility]. Internatio nal normalized ratio above reference range 804903943 R79.1 Patient returns on August 25, 2024. She is on Coumadin for atrial fibrillati on and her INR is elevated. She is going to the Coumadin Clinic for management . INR 8 today. She is going to hold Coumadin and contact Coumadin Clinic for directions today. Denies any bleeding at this time. Diarrhea 64355346 R19.7 Patient with increased diarrhea, nausea, and vomiting for the past 4 days. She is taking Imodium and Lomotil without relief. She has a history of C diff. Will order stool studies today. Will check stool for C diff today. Dehydration 53322313 E86 .0 Patient returns on September 02, [...] Name 09/02/2024 1 [place]ARE[place] Vicky Roblero [id number] Vicky Roblero 09/02/2024 2 [employer] (MEDICARE SUPPLEMENT) Vicky Roblero [id number] Vicky Roblero Notes Date Note Type Note Provider Name and Address Organization Details Recorded Time 09/02/2024 text/html 78 yo F returns for evaluation of metastatic colon cancer. Patient recently seen on February 17, 2023 in the emergency room at [facility] with abdominal pain. Patient reported [...] 8.2 hematocrit 29.0. MCV 67.9. Platelet count 710814. Normal cell differential. Low serum folate of [...] with metastatic colorectal cancer. Discussed chemotherapy with [place] based regimen with 5FU Leucovorin if [...] is following with the Coumadin clinic at [facility]. She is scheduled for cardiac MRI. [...] study published in September 2022 in the [place] [facility] of combined Avastin therapy with [...] cycle. Will follow up. Hanna Snider PA-C [address], [place], [address], [facility] - [facility] - [place] & [place] 09/02/2024 12:55:35 OBGyn Episode No OBEpisode recorded.
--- OUTSIDE RECORDS SUMMARY | 2024-11-01 10:17 | XMS_ITS | Continuity of Care Document ---
Author Organization Unknown Allergies, Adverse Reactions, Alerts Substance Reaction Status tetracycline Active Medications Start Date End Date Medication Signa 22621420 HYDROmorphone 2 mg oral tabl et Take 1 tab(s) orally every 4 hours as needed for Moderate Pain 56483547 Wafarin 2.5mg -5mg tablet Ta ke 2.5mg - 5 mg milligrams orally One time a day; M,W,F take 5 mgTu,th, sat, and sun take 2.5 mg 70795100 64327492 Lasix 40 mg oral tablet Take 1 tab(s) orally once a day for 5 day(s) 64196372 20676955 amoxicillin-clav ulanate 500 mg-125 mg oral tablet Take 1 tab(s) orally 3 times a day for 6 day(s); TAKE ONE TABLET BY MOUTH THREE TIMES DAILY FOR SIX DAYS -- FINISH ALL MEDICINE -- 40760480 atropine-dipheno xylate 0.025 mg-2.5 mg oral tablet Take 1 tab(s) orally 4 times a day; TAKE 1 TABLET BY MOUTH 4 TIMES A DAY NEEDED 04947476 azithromycin 250 mg oral tab let Take 1 tab(s) orally Every morning; TAKE ONE TABLET BY MOUTH EVERY DAY FOR FOUR DAYS -- FINISH ALL MEDICINE -- start ON DAY 2 of therapy 21912572 DULoxetine 30 mg oral delayed release capsule Take 30 milligrams orally Everyday; TAKE 1 CAPSULE BY MOUTH EVERY DAY 42803980 famotidine 20 mg oral tablet Take 1 tab(s) orally 2 times a day; TAKE 1 TABLET BY MOUTH 2 TIMES A DAY 96296148 folic acid 1 mg oral tablet Take 1 tab(s) orally once a day 25981345 Jantoven 1 mg oral tablet Ta ke 1 tab(s) orally Everyday; TAKE 1 TABLET BY MOUTH EVERY DAY OR DIRECTED 85943825 LORazepam 1 mg oral tablet T andreas 1 tab(s) orally 3 times a day as needed for Anxiety; TAKE 1 TABLET BY MOUTH 3 TIMES A DAY NEEDED FOR NAUSEA 13056169 magnesium oxide 400 mg oral capsule Take 1 cap(s) orally once a day 63983163 metoclopramide 5 mg oral tab let Take 1 tab(s) orally 3 times a day; TAKE 1 TABLET BY MOUTH 3 TIMES A DAY NEEDED 12701612 morphine 15 mg oral tablet T andreas 15 milligrams orally every 3 to 4 hours as needed for Severe Pain; TAKE 1 TABLET BY MOUTH EVERY 3 TO 4 HOURS NEEDED 45974989 ondansetron 8 mg oral tablet, disintegrating 1 tab(s) orally 3 times a day; DISSOLVE 1 TABLET IN MOUTH 3 TIMES A DAY 38124036 oxycodone-acetam inophen 5 mg-325 mg tablet 5-325 mg tablet Take 5-325 milligrams orally every 6 hours as needed for Moderate Pain; TAKE ONE TABLET BY MOUTH EVERY 6 HOURS NEEDED FOR PAIN FOR 5 DAYS MAY CAUSE DROWSINESS 79246271 potassium chlori de 20 mEq oral tablet, extended release Take 1 tab(s) orally Every day; TAKE 1 TABLET BY MOUTH EVERY DAY DIRECTED Problems Type Code Description Effective Start Effective End Onset/Exacerbation Date 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 47237588 74978723 Other J18.9 Pneumonia` unspecified organism 04197818 72775159 Other E87.20 Acidosis, unspecified 99151478 75452907 Other J96.01 Acute respirator y failure with hypoxia 43196303 72831279 Other N17.9 Acute kidney failure` unspecified 01761787 56532309 Other I48.0 Paroxysmal atria l fibrillation 33564396 81883042 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) 56215342 36495149 Other M62.81 Muscle weakness (generalized) 37099516 09332688 Other F32.A Depression` unspecified 47781653 11883536 Other F41.9 Anxiety disorder ` unspecified 02783339 28521444 Other K21.9 Gastro-esophagea l reflux disease without esophagitis 60920569 57103393 Other Z99.81 Dependence on supplemental oxygen 53442472 34084703 Other Z79.2 snf (curre nt) use of antibiotics 39572419 58424063 Other Z79.891 ocean transportation intermediary (curre nt) use of opiate analgesic 06196972 30365146 Other Z92.21 Personal history of antineoplastic chemotherapy 13933889 80085102 Other Z79.01 [employer] intermediary (curre nt) use of anticoagulants 63378658 [id number] Insurance Providers Payer Name Policy type / Covera ge type Policy ID Covered Libertarian ID Policy [employer] Patient Responsibility Patient Responsib ility (2017 - ) [id number] Wilma Chambers [place] (2017 - ) [id number] [facility]
[2024-11-01 11:32] LABS: Prothrombin Time 34.5 seconds (10.1-12.5)
[2024-11-01 15:14] LABS: PHA INR Fingerstick 4.1 (0.9-1.1)
== END 2024-11-01 15:16 ==
PROVIDERS: PCP Nurse Practitioner Family; Visit Provider Physician Assistant
DX: Z79.01 Long term (current) use of anticoagulants (principal)
CPT/HCPCS: 36415; 85610; 99211; G0463

== ENCOUNTER 2024-11-15 09:08 | Outpatient (CLI) | payer MEDICARE, SELFPAY ==
--- OUTSIDE RECORDS SUMMARY | 2024-09-26 13:00 | XMS_ITS | Encounter Summary ---
Author Organization [place] [address] Care Team Providers Care Soaping Machine Back Tender Name Role Phone Luis Villasenor MD Unavailable [phone] Luis Villasenor MD Primary Care Provider Reason for Visit * Reason Comments Hospital Follow Up Encounter Details Date Type Department Care Team (Latest Contact Info) Description 09/26/2024 1:00 PM EDT Office Visit [facility] [address] 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 Youngblood, cardiology. 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 Youngblood, cardiology. Taking 5mg M/W/F and 2.5mg other days Acute on chronic heart failure with preserved ejection fraction (HCC) -continue cardiology care with Dr. Youngblood, [facility] Orders: fUROsemide (LASIX) 40 mg Oral Tablet; [...] hospital follow up. She was admitted to [facility] on 09/19/2024 and discharged 09/20/2024 with a [...] Coumadin is managed at coumadin clinic at [facility]. Hospital discharge summary, most recent labs and [...] liver (HCC) Secondary malignant neoplasm of liver skilled nursing (current) use of anticoagulants Long-term (current) use [...] documented as of this encounter Care Teams Soaping Machine Back Tender Relationship Specialty Start Date End Date Luis Villasenor MD [address] [place] [phone] PCP - OBGYN 01/09/10 Luis Villasenor MD [address] [place] [phone] PCP - General 01/09/10 documented as of this encounter
--- OUTSIDE RECORDS SUMMARY | 2024-10-26 11:00 | XMS_ITS | Encounter Summary ---
Author Organization [place] [address] Care Team Providers Care Laminating Machine Feeder Name Role Phone Luis Villasenor MD Unavailable [phone] Luis Villasenor MD Primary Care Provider Reason for Visit * Reason Comments Labs Only Encounter Details Date Type Department Care Team (Late Contact Info) Description 10/26/2024 11:00 AM EDT Clinical Support TODD [place] [address] [place] [phone] Freya Coon [facility] [place] [address] Flank pain Social History Tobacco Use Types [...] STAIN) (10/26/2024 11:17 AM EDT) Pathologist [facility] Culture Multiple bacterial species isolated from urine consistent with urogenital commensal organisms. 10/27/2024 10:23 PM EDT [employer] Urine STRUCTURE OF URINARY TRACT PROPER / Unknown 10/26/2024 11:17 AM EDT 10/26/2024 11:17 AM EDT us Amarilis Nolan APRN MICROBIOLOGY - GENERAL OR DERABLES Final Result [employer] [address] [facility] , [place] [address] * (ABNORMAL) SEP URINALYSIS POC [...] ORDERABLES Fi nal Result TODD [place] [address] [place] [address] * (ABNORMAL) COMPREHENSIVE METABOLIC PANEL (10/26/2024 11:03 [...] 10/26/2024 4:28 PM EDT [facility] Albumin 3.5 3.2 - 4.6 gm/dL 10/26/2024 4:28 PM EDT [facility] Total Protein 7.4 6.4 - 8.3 gm/dL 10/26/2024 4:28 PM EDT [facility] Bili Total 0.7 0.2 - 1.3 mg/dL 10/26/2024 4:28 PM EDT [facility] ALT 11 <=41 U/L 10/26/2024 4:28 PM EDT [facility] AST 28 <=40 U/L 10/26/2024 4:28 PM EDT [facility] Alk Phos 259(H) 36 - 123 U/L 10/26/2024 4:28 PM EDT [facility] eGFR (CKD-EPIcr 2020) 43(L) >=60 mL/min/1.7 3 m2 10/26/2024 4:28 PM EDT [facility] Comment:Estimated GFR was ca lculated using the CKD-EPIcr (2020) equation refit without race. The equation is recommended by the National Kidney Foundation - [place] Society of Nephrology Task Force. Blood VENOUS BLOOD / Unknown Venipuncture / Unknown 10/26/2024 11:03 AM EDT 10/26/2024 11:03 AM EDT us Amarilis Nolan FURNITURE DESIGNER CHEMISTRY ORDERABLES Kell l Result [facility] 1 [facility] , [place] [address] documented in this encounter Visit Diagnoses Diagnosis Flank pain Abdominal pain, unspecified site documented in this encounter Additional Health Concerns Assessment Noted Time A fall risk assessment has been complete d for the patient 06/14/2024 9:03 AM EST documented as of this encounter Care Teams Laminating Machine Feeder Relationship Specialty Start Date End Date Luis Villasenor MD [address] [place] [address] PCP - OBGYN 01/09/10 Luis Villasenor MD [address] [place], [place] [address] PCP - General 01/09/10 documented as of this encounter
--- OUTSIDE RECORDS SUMMARY | 2024-11-03 07:11 | XMS_ITS | Continuity of Care Document ---
Author Organization [facility] Phone Care Team Providers Care Addiction Nurse Name Role Phone TANI WIN Admitting TANI WIN Primary Attending CARLOS A COATS Unavailable Unavailable CARLOS A COATS Primary Care Unavailable ALLERGIES AND ADVERSE REACTIONS ALLERGIES AND ADVERSE REACTIONS Code System Allergy Substance Adverse Reaction Date Reaction (Severity) [place] [id number] RXNorm TETRACYCLINE Rash (Moderate) Shock active [id number] on October 28, 2024 4:17:16 AM UT ASSESSMENTS Right flank pain ; Diverticulitis ; Acute kidney injury ; Acute cystitis ; Paroxysmal atrial fibrillation ; Primary malignant neoplasm of colon ; PROBLEMS PATIENT PROBLEMS Code Description/Comments Category Status Upda elisha By [id number] Right flank pain active [id number] on October 28, 2024 4:04:01 AM UT [id number] Diverticulitis active [id number] on October 28, 2024 4:04:11 AM UT [id number] Acute kidney injury active [id number] on October 28, 2024 4:04:32 AM UT [id number] Acute cystitis active [id number] on October 28, 2024 3:39:55 PM UT [id number] Paroxysmal atrial fibrillation activ e [id number] on October 28, 2024 3:39:55 PM UT [id number] Primary malignant neoplasm of colon active [id number] on October 28, 2024 3:39:55 PM UT RESULTS Patient: KAREN HESS Date of : [birth year] 4 LABORATORY RESULTS ORDER 100: CBC AUTO W DIFF ( LOINC: 95849-3) ORDER DATE: October 27, 2024 10:51:00 PM UTC Specimen Source: EDTA Specimen Type: Blood specime n with EDTA PERFORMING LAB: [address] [id number] Result Comment: Final Result Date: October 27, 2024 11:40:00 PM UTC (TECH: Hash[employer]ube) LOINC TEST FLAG RESULT REFERENCE RANGE UPDA ELISHA BY 6690-2 Leukocytes [#/volume] in Blood by Automated count H 13.1 K/ul 4.0 K/ul - 10.5 K/ul October 27, 2024 11:40:00 PM UTC (TECH: [employer]ube) 789-8 Erythrocytes [#/volume] in Blood by Automated count L 3.5 M/mm3 4.2 M/mm3 - 6.4 M/mm3 October 27, 2024 11:40:00 PM UTC (TECH: [employer]) 718-7 Hemoglobin [Mass/volume] in Blood L 10.2 gm/dl 12.5 gm/dl - 16.0 gm/dl October 27, 2024 11:40:00 PM UTC (TECH: HashCube) 21470-7 Hematocrit [Volume Fraction] of Blood L 31.8 % 37.0 % - 47.0 % October 27, 2024 11:40:00 PM UTC (TECH: [employer]ube) 787-2 Erythrocyte mean corpuscular volume [Entitic volume] by Automated count N 91.9 fl 78 fl - 100 fl October 27, 2024 11:40:00 PM UTC (TECH: [employer]) 785-6 Erythrocyte mean corpuscular hemoglobin [Entitic mass] by Automated count N 29.5 pg 27 pg - 31 pg October 27, 2024 11:40:00 PM UTC (TECH: [employer]) 786-4 Erythrocyte mean corpuscular hemoglobin concentration [Mass/volume] by Automated count N 32.1 g/dl 32 g/dl - 36 g/dl October 27, 2024 11:40:00 PM UTC (TECH: Hash[employer]ube) 50322-5 Erythrocyte distribution width [Ratio] H 14.2 % 11.5 % - 14.0 % October 27, 2024 11:40:00 PM UTC (TECH: [employer]) 777-3 Platelets [#/volume] in Blood by Automated count N 234 K/ul 150 K/ul - 450 K/ul October 27, 2024 11:40:00 PM UTC (TECH: [employer]) 09458-2 Platelet mean volume [Entitic volume] in Blood by Automated count N 9.2 fl 6 fl - 9.5 fl October 27, 2024 11:40:00 PM UTC (TECH: [employer]) 23753-6 Neutrophils/100 leukocytes in Blood H 82.3 % 43 % - 65 % October 27, 2024 11:40:00 PM UTC (TECH: ME) 736-9 Lymphocytes/100 leukocytes in Blood by Automated count L 6.7 % 20.5 % - 45.5 % October 27, 2024 11:40:00 PM UTC (TECH: [employer]) 5905-5 Monocytes/100 leukocytes in Blood by Automated count N 7.2 % 5.5 % - 11.7 % October 27, 2024 11:40:00 PM UTC (TECH: [employer]ube) 713-8 Eosinophils/100 leukocytes in Blood by Automated count H 3.1 % 0.9 % - 2.9 % October 27, 2024 11:40:00 PM UTC (TECH: [employer]) 706-2 Basophils/100 leukocytes in Blood by Automated count N 0.3 % 0.2 % - 1.0 % October 27, 2024 11:40:00 PM UTC (TECH: [employer]ube) 99439-8 Immature granulocytes/100 leukocytes in Blood by Automated count N 0.4 % 0.0 % - 0.8 % October 27, 2024 11:40:00 PM UTC (TECH: [employer]ube) 80602-9 Nucleated cells [#/volume] in Blood N 0.0 % October 27, 2024 11:40:00 PM UTC (TECH: [employer]) 17645-2 Neutrophils [#/volume] in Blood H 10.7 K/uL 2.2 K/uL - 4.8 K/uL October 27, 2024 11:40:00 PM UTC (TECH: [employer]) 731-0 Lymphocytes [#/volume] in Blood by Automated count L 0.9 CELL/MCL 1.3 CELL/MCL - 2.9 CELL/MCL October 27, 2024 11:40:00 PM UTC (TECH: [employer]) 742-7 Monocytes [#/volume] in Blood by Automated count H 0.9 CELL/MCL 0.3 CELL/MCL - 0.8 CELL/MCL October 27, 2024 11:40:00 PM UTC (TECH: [employer]) 711-2 Eosinophils [#/volume] in Blood by Automated count H 0.4 CELL/MCL 0 CELL/MCL - 0.2 CELL/MCL October 27, 2024 11:40:00 PM UTC (TECH: ME) 704-7 Basophils [#/volume] in Blood by Automated count N 0.0 CELL/MCL 0.0 CELL/MCL - 1.0 CELL/MCL October 27, 2024 11:40:00 PM UTC (TECH: ME) 97146-6 Immature granulocytes [#/volume] in Blood N 0.05 K/ul October 27, 2024 11:40:00 PM UTC (TECH: ME) 62492-8 Nucleated cells [#/volume] in Blood N 0.00 K/uL October 27, 2024 11:40:00 PM UTC (TECH: ME) 75880-4 Manual Differential panel - Blood N NO October 27, 2024 11:40:00 PM UTC (TECH: ME) ORDER 200: COMP METABOLIC PA BEBETO (LOINC: 12015-5) ORDER DATE: October 27, 2024 10:51:00 PM UTC Specimen Source: PLASMA Specimen Type: Plasma specim en PERFORMING LAB: [address] [id number] Result Comment: Final Result Date: October 27, [...] 27, 2024 11:57:00 PM UTC (TECH: AY) 28209-5 Anion gap in Blood N 11.8 M 2024 11:57:00 PM [facility] (TECH: AY) 2345-7 Glucose [Mass/volume ] in Serum or Plasma H 165 mg/dl 70 mg/dl - 120 mg/dl October 27, 2024 11:57:00 PM [facility] (TECH: AY) 6299-2 Urea nitrogen [Mass/volume] in Blood H 22 mg/dL 7 mg/dL - 18 mg/dL October 27, 2024 11:57:00 PM [facility] (TECH: AY) 14400-3 Creatinine [Moles/volume] in Blood H 1.7 mg/dL 0.6 mg/dL - 1.3 mg/dL October 27, 2024 11:57:00 PM [facility] (TECH: AY) 14474-8 Glomerular filtratio n rate/1.73 sq M.predicted by Creatinine-based formula (MDRD) L 31 mlpermin 60 mlpermin October 27, 2024 11:57:00 PM [facility] (TECH: AY) 94022-9 Osmolality of Serum or Plasma by calculated by sum of electrolytes N 276 mosm/kg 275 mosm/kg - 301 mosm/kg October 27, 2024 11:57:00 PM [facility] (TECH: AY) 2885-2 Protein [Mass/volume ] in Serum or Plasma N 7.3 g/dl 6.4 g/dl - 8.2 g/dl October 27, 2024 11:57:00 PM [facility] (TECH: AY) 1751-7 Albumin [Mass/volume ] in Serum or Plasma L 2.5 g/dl 3.4 g/dl - 5.0 g/dl October 27, 2024 11:57:00 PM [facility] (TECH: AY) 2336-6 Globulin [Mass/volum e] in Serum N 4.8 October 27, 2024 11:57:00 PM [facility] (TECH: AY) 1759-0 Albumin/Globulin [Ma ss Ratio] in Serum or Plasma L 0.5 0.7 - 2 October 27, 2024 11:57:00 PM [facility] (TECH: AY) 68446-7 Calcium [Mass/volume ] in Serum or Plasma [...] AY) ORDER 300: URINALYSIS REFLEX MICROSCOPIC (LOINC: 34135-8) ORDER DATE: October 27, 2024 10:51:00 PM UT Specimen Source: URINE Specimen Type: Urine specime n PERFORMING LAB: [address] [id number] Result Comment: Final Result Date: October 28, 2024 1:09:00 AM UT (TECH: [employer]) LOINC TEST FLAG RESULT REFERENCE RANGE UPDA ELISHA BY 5778-6 Color of Urine N DRK YELLOW YELLOW October 28, 2024 1:09:00 AM UT (TECH: ME) 5767-9 Appearance of Urine N HAZY CLEAR October 28, 2024 1:09:00 AM UT (TECH: ME) 5792-7 Glucose [Mass/volume] in Urine by Test strip N norm NORMAL October 28, 2024 1:09:00 AM UT (TECH: ME) 33587-9 Bilirubin.total [Mass/volume] in Urine by Automated test strip 1 NEGATIVE October 28, 2024 1:09:00 AM UT (TECH: ME) 5797-6 Ketones [Mass/volume] in Urine by Test strip 5 NEGATIVE October 28, 2024 1:09:00 AM UT (TECH: ME) 2965-2 Specific gravity of Urine H 1.025 1.016 - 1.022 October 28, 2024 1:09:00 AM UTC (TECH: ME) 70278-6 Erythrocytes [#/volume] in Urine by Automated test strip N 10 NEGATIVE October 28, 2024 1:09:00 AM UTC (TECH: ME) 77652-6 pH of Urine by Automated test strip N 5 5 - 9 October 28 1:09:00 AM UTC (TECH: ME) 07174-4 Protein [Presence] in Urine by Test strip 30 NEGATIVE October 28, 2024 1:09:00 AM UTC (TECH: ME) 70763-6 Urobilinogen [Mass/volume] in Urine by Automated test strip 1 NORMAL October 28, 2024 1:09:00 AM UTC (TECH: ME) 88192-8 Nitrate [Presence] in Urine N NEGATIVE NEGATIVE October 28, 2024 1:09:00 AM UTC (TECH: ME) 44370-1 Leukocytes [#/volume] in Urine by Test strip 100 NEGATIVE October 28, 2024 1:09:00 AM UTC (TECH: ME) 95166-3 Urinalysis dipstick W Reflex Culture panel - Urine N YES October 28, 2024 1:09:00 AM UTC (TECH: ME) 46240-5 Erythrocytes [#/area] in Urine sediment by Microscopy high power field N 0-2 NONE SEEN October 28, 2024 1:09:00 AM UTC (TECH: ME) 5821-4 Leukocytes [#/area] in Urine sediment by Microscopy high power field N 1-5 NONE SEEN October 28, 2024 1:09:00 AM UTC (TECH: ME) 65608-3 Epithelial cells.squamous [#/area] in Urine sediment by [...] Specimen Type: Plasma specim en PERFORMING LAB: [address] [id number] Result Comment: Final Result Date: October 28, 2024 2:47:00 AM UTC (TECH: AY) LOINC TEST FLAG RESULT REFERENCE RANGE UPDA ELISHA BY 2524-7 Lactate [Moles/volume] in Serum or Plasma N 0.7 mmol/L 0.4 mmol/L - 2.0 mmol/L October 28, 2024 2:47:00 AM UTC (TECH: AY) ORDER 1500: CBC AUTO W DIFF (LOINC: 18827-7) ORDER DATE: October 28, 2024 4:07:00 AM UTC Specimen Source: EDTA Specimen Type: Blood specime n with EDTA PERFORMING LAB: [address] [id number] Result Comment: Final Result Date: October 28, [...] 28, 2024 11:36:00 AM UTC (TECH: TGD) 85771-5 Hematocrit [Volume Fraction] of Blood L 27.8 [...] 28, 2024 11:36:00 AM UTC (TECH: TGD) 45215-1 Erythrocyte distribution width [Ratio] H 14.4 % 11.5 % - 14.0 % October 28, 2024 11:36:00 AM UTC (TECH: TGD) 777-3 Platelets [#/volume] in Blood by Automated count N 180 K/ul 150 K/ul - 450 K/ul October 28, 2024 11:36:00 AM UTC (TECH: TGD) 10414-8 Platelet mean volume [Entitic volume] in Blood by Automated count N 9.4 fl 6 fl - 9.5 fl October 28, 2024 11:36:00 AM UTC (TECH: TGD) 44206-2 Neutrophils/100 leukocytes in Blood H 79.9 % [...] 28, 2024 11:36:00 AM UTC (TECH: TGD) 93935-9 Immature granulocytes/100 leukocytes in Blood by Automated count N 0.6 % 0.0 % - 0.8 % October 28, 2024 11:36:00 AM UTC (TECH: TGD) 98578-1 Nucleated cells [#/volume] in Blood N 0.0 % October 28, 2024 11:36:00 AM UTC (TECH: TGD) 92396-6 Neutrophils [#/volume] in Blood H 7.0 K/uL [...] 28, 2024 11:36:00 AM UTC (TECH: TGD) 32260-1 Immature granulocytes [#/volume] in Blood N 0.05 K/ul October 28, 2024 11:36:00 AM UTC (TECH: TGD) 77802-0 Nucleated cells [#/volume] in Blood N 0.00 K/uL October 28, 2024 11:36:00 AM UTC (TECH: TGD) 78155-4 Manual Differential panel - Blood N NO October 28, 2024 11:36:00 AM UT (TECH: TGD) ORDER 1600: COMP METABOLIC P CARMEL (LOINC: 55531-3) ORDER DATE: October 28, 2024 4:07:00 AM UT Specimen Source: PLASMA Specimen Type: Plasma specim en PERFORMING LAB: [address] [id number] Result Comment: Final Result Date: October 28, [...] 28, 2024 11:52:00 AM UTC (TECH: ARR) 95819-4 Anion gap in Blood N 10.8 M 2024 11:52:00 AM UTC (TECH: ARR) 2345-7 Glucose [Mass/volume ] in Serum or Plasma N 112 mg/dl 70 mg/dl - 120 mg/dl October 28, 2024 11:52:00 AM UTC (TECH: ARR) 6299-2 Urea nitrogen [Mass/volume] in Blood H 22 mg/dL 7 mg/dL - 18 mg/dL October 28, 2024 11:52:00 AM UTC (TECH: ARR) 63173-6 Creatinine [Moles/volume] in Blood H 1.7 mg/dL 0.6 mg/dL - 1.3 mg/dL October 28, 2024 11:52:00 AM UTC (TECH: ARR) 46385-4 Glomerular filtratio n rate/1.73 sq M.predicted by Creatinine-based formula (MDRD) L 31 mlpermin 60 mlpermin October 28, 2024 11:52:00 AM UTC (TECH: ARR) 73998-6 Osmolality of Serum or Plasma by calculated [...] 28, 2024 11:52:00 AM UT (TECH: ARR) 17729-4 Calcium [Mass/volume ] in Serum or Plasma [...] (TECH: ARR) ORDER 1700: MAGNESIUM (LOINC : 53864-6) ORDER DATE: October 28, 2024 4:07:00 AM [facility] Specimen Source: PLASMA Specimen Type: Plasma specim en PERFORMING LAB: [address] [id number] Result Comment: Final Result Date: October 28, 2024 11:52:00 AM UT (TECH: ARR) LOINC TEST FLAG RESULT [place] [address]-3 Magnesium [Mass/volume] in Serum or Plasma N 2.1 MG/DL 1.8 MG/DL - 2.4 MG/DL October 28, 2024 11:52:00 AM UTC (TECH: ARR) ORDER 1800: PT PROTHROMBIN T IAN W INR (LOINC: 45265-9) ORDER DATE: October 28, 2024 4:07:00 AM UTC Specimen Source: PLASMA Specimen Type: Plasma specim en PERFORMING LAB: [address] [id number] Result Comment: Final Result Date: October 28, 2024 11:42:00 AM UTC (TECH: TGD) LOINC TEST FLAG RESULT [place] [address]-0 INR in Platelet poor plasma or blood by Coagulation assay H 25.2 SECONDS 9.3 SECONDS - 11.4 SECONDS October 28, 2024 11:42:00 AM UTC (TECH: TGD) 6301-6 INR in Platelet poor plasma by Coagulation assay H 2.5 Ratio 0.97 Ratio - 1.05 Ratio October 28, 2024 11:42:00 AM UT (TECH: TGD) ORDER 2200: COMP METABOLIC P CARMEL (LOINC: 03303-6) ORDER DATE: October 28, 2024 8:04:00 AM UTC Specimen Source: PLASMA Specimen Type: Plasma specim en PERFORMING LAB: [address] [id number] Result Comment: Final Result Date: October 29, [...] October 29, 2024 8:41:00 AM UT (TECH: Learn[employer]) 79872-0 Anion gap in Blood N 11.7 M 2024 8:41:00 AM UT (TECH: [employer]) 2345-7 Glucose [Mass/volume ] in Serum or Plasma N 99 mg/dl 70 mg/dl - 120 mg/dl October 29, 2024 8:41:00 AM UT (TECH: [employer]) 6299-2 Urea nitrogen [Mass/volume] in Blood H 21 mg/dL 7 mg/dL - 18 mg/dL October 29, 2024 8:41:00 AM [facility] (TECH: [employer]) 66982-2 Creatinine [Moles/volume] in Blood H 1.5 mg/dL 0.6 mg/dL - 1.3 mg/dL October 29, 2024 8:41:00 AM [facility] (TECH: [employer]) 92173-6 Glomerular filtratio n rate/1.73 sq M.predicted by Creatinine-based formula (MDRD) L 36 mlpermin 60 mlpermin October 29, 2024 8:41:00 AM [facility] (TECH: [employer]) 69367-3 Osmolality of Serum or Plasma by calculated by sum of electrolytes N 280 mosm/kg 275 mosm/kg - 301 mosm/kg October 29, 2024 8:41:00 AM [facility] (TECH: [employer]) 2885-2 Protein [Mass/volume ] in Serum or Plasma N 6.4 g/dl 6.4 g/dl - 8.2 g/dl October 29, 2024 8:41:00 AM UT (TECH: [employer]) 1751-7 Albumin [Mass/volume ] in Serum or Plasma L 2.0 g/dl 3.4 g/dl - 5.0 g/dl October 29, 2024 8:41:00 AM UT (TECH: [employer]) 2336-6 Globulin [Mass/volum e] in Serum N 4.4 October 29, 2024 8:41:00 AM UT (TECH: [employer]) 1759-0 Albumin/Globulin [Ma ss Ratio] in Serum or Plasma L 0.5 0.7 - 2 October 29, 2024 8:41:00 AM UT (TECH: [employer]) 23022-2 Calcium [Mass/volume ] in Serum or Plasma N 9.1 mg/dl 8.5 mg/dl - 10.5 mg/dl October 29, 2024 8:41:00 AM UT (TECH: [employer]) 1975-2 Bilirubin.total [Mass/volume] in Serum or Plasma N 0.60 mg/dL 0.10 mg/dL - 1.00 mg/dL October 29, 2024 8:41:00 AM UT (TECH: [employer]) 1920-8 Aspartate aminotransferase [Enzymatic activity/volume] in Serum or Plasma H 95 U/L 0 U/L - 37 U/L October 29, 2024 8:41:00 AM [facility] (TECH: [employer]) 1742-6 Alanine aminotransferase [Enzymatic activity/volume] in Serum or Plasma N 14 U/L 0 U/L - 65 U/L October 29, 2024 8:41:00 AM UT (TECH: [employer]) 6768-6 Alkaline phosphatase [Enzymatic activity/volume] in Serum or Plasma H 207 U/L 46 U/L - 116 U/L October 29, 2024 8:41:00 AM UT (TECH: [employer]) ORDER 2300: CBC AUTO W DIFF (LOINC: 23505-1) ORDER DATE: October 28, 2024 8:04:00 AM [facility] Specimen Source: EDTA Specimen Type: Blood specime n with EDTA PERFORMING LAB: [address] [id number] Result Comment: Final Result Date: October 29, 2024 8:20:00 AM [facility] (TECH: Style on Screen) LOINC TEST FLAG RESULT REFERENCE RANGE UPDA ELISHA BY 6690-2 Leukocytes [#/volume] in Blood by Automated count N 9.2 K/ul 4.0 K/ul - 10.5 K/ul October 29, 2024 8:20:00 AM [facility] (TECH: CRM) 789-8 Erythrocytes [#/volume] in Blood by Automated count L 2.9 M/mm3 4.2 M/mm3 - 6.4 M/mm3 October 29, 2024 8:20:00 AM UT (TECH: CRM) 718-7 Hemoglobin [Mass/volume] in Blood L 8.6 gm/dl 12.5 gm/dl - 16.0 gm/dl October 29, 2024 8:20:00 AM UTC (TECH: CRM) 44994-1 Hematocrit [Volume Fraction] of Blood L 27.3 [...] 29, 2024 8:20:00 AM UTC (TECH: CRM) 38402-9 Erythrocyte distribution width [Ratio] H 14.4 % 11.5 % - 14.0 % October 29, 2024 8:20:00 AM UTC (TECH: CRM) 777-3 Platelets [#/volume] in Blood by Automated count N 177 K/ul 150 K/ul - 450 K/ul October 29, 2024 8:20:00 AM UTC (TECH: Style on Screen) 96303-8 Platelet mean volume [Entitic volume] in Blood by Automated count N 9.1 fl 6 fl - 9.5 fl October 29, 2024 8:20:00 AM UTC (TECH: CRM) 72875-6 Neutrophils/100 leukocytes in Blood H 78.4 % [...] 29, 2024 8:20:00 AM UTC (TECH: CRM) 67631-9 Immature granulocytes/100 leukocytes in Blood by Automated count N 0.7 % 0.0 % - 0.8 % October 29, 2024 8:20:00 AM UTC (TECH: CRM) 58532-0 Nucleated cells [#/volume] in Blood N 0.0 % October 29, 2024 8:20:00 AM UTC (TECH: CRM) 25963-5 Neutrophils [#/volume] in Blood H 7.2 K/uL [...] 29, 2024 8:20:00 AM UTC (TECH: CRM) 15413-8 Immature granulocytes [#/volume] in Blood N 0.06 K/ul October 29, 2024 8:20:00 AM UTC (TECH: CRM) 94313-9 Nucleated cells [#/volume] in Blood N 0.00 K/uL October 29, 2024 8:20:00 AM UT (TECH: CRM) 16074-2 Manual Differential panel - Blood N NO October 29, 2024 8:20:00 AM UTC (TECH: CRM) ORDER 2400: PT PROTHROMBIN T IAN W INR (LOINC: 06427-9) ORDER DATE: October 28, 2024 1:25:00 PM UTC Specimen Source: PLASMA Specimen Type: Plasma specim en PERFORMING LAB: [address] [id number] Result Comment: Final Result Date: October 29, 2024 8:40:00 AM UTC (TECH: CRM) LOINC TEST FLAG RESULT [place] [address]-4 INR in Platelet poor plasma or blood by Coagulation assay H 28.1 SECONDS 9.3 SECONDS - 11.4 SECONDS October 29, 2024 8:40:00 AM UTC (TECH: CRM) 6301-6 INR in Platelet poor plasma by Coagulation assay H 2.8 Ratio 0.97 Ratio - 1.05 Ratio October 29, 2024 8:40:00 AM UTC (TECH: CRM) ORDER 2700: PT PROTHROMBIN T IAN W INR (LOINC: 21808-8) ORDER DATE: October 29, 2024 1:14:00 PM UTC Specimen Source: PLASMA Specimen Type: Plasma specim en PERFORMING LAB: [address] [id number] Result Comment: Final Result Date: October 30, 2024 10:07:00 AM UTC (TECH: RR) LOINC TEST FLAG RESULT [place] [address]-9 INR in Platelet poor plasma or blood by Coagulation assay HH 54.9 SECONDS 9.3 SECONDS - 11.4 SECONDS October 30, 2024 10:07:00 AM UTC (TECH: RR) 6301-6 INR in Platelet poor plasma by Coagulation assay H 5.81 Ratio 0.97 Ratio - 1.05 Ratio October 30, 2024 10:07:00 AM UTC (TECH: RR) ORDER 2800: CBC AUTO W DIFF (LOINC: 59035-2) ORDER DATE: October 29, 2024 3:26:00 PM UTC Specimen Source: EDTA Specimen Type: Blood specime n with EDTA PERFORMING LAB: [place] [address] [facility] [id number] Result Comment: Final Result Date: October 30, [...] 30, 2024 9:31:00 AM UTC (TECH: RR) 56553-4 Hematocrit [Volume Fraction] of Blood L 26.9 [...] 30, 2024 9:31:00 AM UTC (TECH: RR) 60064-8 Erythrocyte distribution width [Ratio] H 14.4 % 11.5 % - 14.0 % October 30, 2024 9:31:00 AM UTC (TECH: RR) 777-3 Platelets [#/volume] in Blood by Automated count N 174 K/ul 150 K/ul - 450 K/ul October 30, 2024 9:31:00 AM UTC (TECH: RR) 29098-2 Platelet mean volume [Entitic volume] in Blood by Automated count N 9.2 fl 6 fl - 9.5 fl October 30, 2024 9:31:00 AM UTC (TECH: RR) 62800-3 Neutrophils/100 leukocytes in Blood H 80.6 % [...] 30, 2024 9:31:00 AM UTC (TECH: RR) 19027-8 Immature granulocytes/100 leukocytes in Blood by Automated count N 0.5 % 0.0 % - 0.8 % October 30, 2024 9:31:00 AM UTC (TECH: RR) 67645-5 Nucleated cells [#/volume] in Blood N 0.0 % October 30, 2024 9:31:00 AM UTC (TECH: RR) 42152-8 Neutrophils [#/volume] in Blood H 6.1 K/uL [...] 30, 2024 9:31:00 AM [place] (TECH: RR) 45973-3 Immature granulocytes [#/volume] in Blood N 0.04 K/ul October 30, 2024 9:31:00 AM UT (TECH: RR) 07349-3 Nucleated cells [#/volume] in Blood N 0.00 K/uL October 30, 2024 9:31:00 AM [facility] (TECH: RR) 00043-5 Manual Differential panel - Blood N NO October 30, 2024 9:31:00 AM [facility] (TECH: RR) ORDER 2900: COMP METABOLIC P CARMEL (LOINC: 64005-2) ORDER DATE: October 29, 2024 3:26:00 PM [facility] Specimen Source: PLASMA Specimen Type: Plasma specim en PERFORMING LAB: [address] [id number] Result Comment: Final Result Date: October 30, 2024 10:01:00 AM [facility] (TECH: RR) LOINC TEST FLAG RESULT REFERENCE [...] 107 mmol/L October 30, 2024 10:01:00 AM [facility] (TECH: RR) 2027-9 Carbon dioxide, tota l [Moles/volume] in Serum or Plasma N 23.1 mmol/L 21.0 mmol/L - 32.0 mmol/L October 30, 2024 10:01:00 AM UTC (TECH: RR) 60339-0 Anion gap in Blood N 14.4 J 2024 10:01:00 AM UTC (TECH: RR) 2345-7 Glucose [Mass/volume ] in Serum or Plasma N 80 mg/dl 70 mg/dl - 120 mg/dl October 30, 2024 10:01:00 AM UTC (TECH: RR) 6299-2 Urea nitrogen [Mass/volume] in Blood N 15 mg/dL 7 mg/dL - 18 mg/dL October 10:01:00 AM UTC (TECH: RR) 48399-9 Creatinine [Moles/vo lume] in Blood N 1.2 mg/dL 0.6 mg/dL - 1.3 mg/dL October 30, 2024 10:01:00 AM UTC (TECH: RR) 47288-0 Glomerular filtratio n rate/1.73 sq M.predicted by Creatinine-based formula (MDRD) L 47 mlpermin 60 mlpermin October 30, 2024 10:01:00 AM [place] (TECH: RR) 37156-2 Osmolality of Serum or Plasma by calculated [...] 2 October 10:01:00 AM UTC (TECH: RR) 58655-4 Calcium [Mass/volume ] in Serum or Plasma N 8.6 mg/dl 8.5 mg/dl - 10.5 mg/dl October 30, 2024 10:01:00 AM [facility] (TECH: RR) 1975-2 Bilirubin.total [Mass/volume] in Serum or Plasma N 0.50 mg/dL 0.10 mg/dL - 1.00 mg/dL October 30, 2024 10:01:00 AM [facility] (TECH: RR) 1920-8 Aspartate aminotrans ferase [Enzymatic activity/volume] in Serum or Plasma H 54 U/L 0 U/L - 37 U/L October 30, 2024 10:01:00 AM [facility] (TECH: RR) 1742-6 Alanine aminotransfe rase [Enzymatic activity/volume] in Serum or Plasma N 11 U/L 0 U/L - 65 U/L October 30, 2024 10:01:00 AM [facility] (TECH: RR) 6768-6 Alkaline phosphatase [Enzymatic activity/volume] in Serum or Plasma H 204 U/L 46 U/L - 116 U/L October 30, 2024 10:01:00 AM [facility] (TECH: RR) LABORATORY NARRATIVE RESULTS Information is not available RADIOLOGY RESULTS ORDER 400: CT ABD PEL W IV C ONT ONLY (LOINC: 60432-1) ORDER DATE: October 27, 2024 10:51:00 PM [facility] PERFORMING LAB: [address] [id number] Final Result Date: October 28 1:13:[address] [address] Name: DESHAWN ROBLERO Exam Date: 10/27/2024 : 1945 Age 79 years Gender: F Physician: KARIS SPICER Facility: [facility] Facility HSV: Outpatient Exam: CT ABD PEL [...] Thank you for referring DESHAWN ROBLERO to [facility]. Legally authenticated by HEIDI GODWIN 2024-10-27 [...] Prescri bed: October 30, 2024 3:13:50 PM [facility] [id number] on October 30, 2024 3:13:50 PM [facility] Continued 257010 Potassium Chloride ER Oral Tablet Extended Release 20 MEQ 0 ORAL ONCE DAILY Prescri bed: October 30, 2024 3:13:50 PM [facility] [id number] on October 30, 2024 3:13:50 PM [facility] Continued [id number] Ondansetron HCl Oral Tablet 8 MG 0 ORAL THREE TIMES A DAY Prescri bed: October 30, 2024 3:13:50 PM [facility] [id number] on October 30, 2024 3:13:50 PM [facility] Continued 235413 hydrocodone 10 mg-acetaminophen 325 mg tablet 0 Prescri bed: October 30, 2024 3:13:50 PM [facility] [id number] on October 30, 2024 3:13:50 PM [facility] Continued [id number] metoclopramide 5 mg tablet 5 MG ORAL THREE TIMES A DAY Prescri bed: October 30, 2024 3:13:50 PM [facility] [id number] on October 30, 2024 3:13:50 PM [facility] Continued [id number] rOPINIRole HCl Oral Tablet 0.5 MG 0.5 MG ORAL THREE TIMES A DAY Prescri bed: October 30, 2024 3:13:50 PM [facility] [id number] on October 30, 2024 3:13:50 PM [facility] Continued [id number] Amoxicillin-Pot Clavulanate Oral Tablet 875-125 MG 1 TAB ORAL TWICE A DAY Prescri bed: October 30, 2024 3:13:50 PM [facility] [id number] on October 30, 2024 3:13:50 PM [facility] Continued [id number] diphenoxylate-at ropine 2.5 mg-0.025 mg tablet 0 ORAL FOUR TIMES A DAY Prescri bed: October 30, 2024 3:13:50 PM [facility] [id number] on October 30, 2024 3:13:50 PM [facility] Continued [id number] furosemide 40 mg tablet 40 MG ORAL ONCE DAILY NEEDED Prescri bed: October 30, 2024 3:13:50 PM [facility] [id number] on October 30, 2024 3:13:50 PM [facility] Continued Coumadin 5 MG ORAL EVERY THURSDAY AND THURSDAY (COUMADIN) Prescri bed: October 30, 2024 3:13:50 PM [facility] [id number] on October 30, 2024 3:13:50 PM [facility] Continued 834151 famotidine 10 mg tablet 0 Prescri bed: October 30, 2024 3:13:50 PM [facility] [id number] on October 30, 2024 3:13:50 PM [facility] PATIENT OPEN ORDERS Code System Description Frequency Occurrences Priority Start Date Ordering Physician Updated By Patient open order informati on is not available. SCHEDULED PROCEDURES Code System Description Status Scheduled Date Upd ated By Patient scheduled procedure information is not available. MEDICATIONS HOME MEDICATIONS Status RXNORM [facility] Medication Dose Route Frequency Dates Comments Reported By Updated By Active [id number] 08563 92571 1 Eliquis 5 mg tablet 0.0 Last Dose: August 01, 2024 12:00: 00 AM [facility] [id number] on October 28, 2024 9:26:33 AM [facility] Active 404261 23323 71765 0 furosemide 20 mg tablet 0.0 Last Dose: [id number] on October 28, 2024 9:26:33 AM [facility] Active 564730 36318 66709 5 metocloprami de 5 mg tablet 5.0 MG ORAL TID Last Dose: [id number] on October 28, 2024 9:26:33 AM [facility] Active 093522 19825 46249 0 hydrocodone 10 mg-acetamino phen 325 mg tablet 0.0 Last Dose: October 26, 2024 12:00: 00 AM [facility] [id number] on October 30, 2024 3:12:12 PM [facility] Active 0981442 37241 54094 0 diphenoxylat e-atropine 2.5 mg-0.025 mg tablet 0.0 ORAL QID Last Dose: [id number] on October 30, 2024 3:11:15 PM [facility] Active 795015 11005 02088 1 fluconazole 150 mg tablet 0.0 Last Dose: [id number] on October 28, 2024 9:26:33 AM [facility] Active 811166 88261 04654 0 famotidine 10 mg tablet 0.0 Last Dose: [id number] on October 30, 2024 3:12:07 PM [facility] Active 640855 19483 35729 0 furosemide 40 mg tablet 40.0 MG ORAL DAILYPRN Last Dose: [id number] on October 30, 2024 3:11:53 PM UT Active FreeT extMe d Coumadin 5.0 MG ORAL CMF Last Dose: [id number] on October 28, 2024 4:10:19 AM [facility] Active FreeT extMe d Coumadin 2.5 MG ORAL CTWT Last Dose: [id number] on October 28, 2024 4:13:26 AM UT Active FreeT extMe d coumadin 2.5 MG ORAL CSS Last Dose: [id number] on October 28, 2024 4:21:47 AM [facility] Active 765633 38346 07989 1 rOPINIRole HCl Oral Tablet 0.5 MG 0.5 MG ORAL TID Last Dose: [id number] on October 28, 2024 9:16:26 AM [facility] Active 92392 80228 1 MAGnesium-Ox sue Oral Tablet 400 (240 Mg) MG 0.0 ORAL DAILY Last Dose: [id number] on October 30, 2024 3:11:43 PM [facility] Active 769883 95250 79759 0 Potassium Chloride ER Oral Tablet Extended Release 20 MEQ 0.0 ORAL DAILY Last Dose: [id number] on October 30, 2024 3:11:31 PM [facility] Active 679438 55943 82554 3 Ondansetron HCl Oral Tablet 8 MG 0.0 ORAL TID Last Dose: [id number] on October 30, 2024 3:11:38 PM [facility] DISCHARGE MEDICATIONS Status [facility]NORM [facility] Medication Dose Route Frequency Dates Comments Physician Updated By Continue bentley [id number] 1674 0033 901 MAGnesium-O xide Oral Tablet 400 (240 Mg) MG 0.0 ORAL ONCE DAILY Prescr ibed: October 30, 2024 3:13:5 0 PM [facility] CHILAN[place] MG [id number] on October 30, 2024 3:13:50 PM [facility] Continue d 902804 0630 9095 330 Potassium Chloride ER Oral Tablet Extended Release 20 MEQ 0.0 ORAL ONCE DAILY Prescr ibed: October 30, 2024 3:13:5 0 PM [facility] CHILANGO MG [id number] on October 30, 2024 3:13:50 PM [facility] Continue d 164073 5616 1015 413 Ondansetron HCl Oral Tablet 8 MG 0.0 ORAL THREE TIMES A DAY Prescr ibed: October 30, 2024 3:13:5 0 PM [place] [facility] [id number] on October 30, 2024 3:13:50 PM UTC Continue d 545934 5520 4000 330 hydrocodone 10 mg-acetamin ophen 325 mg tablet 0.0 Prescr ibed: October 30, 2024 3:13:5 0 PM [place] [facility] [id number] on October 30, 2024 3:13:50 PM UTC Continue d 540145 5148 0001 005 metoclopram sue 5 mg tablet 5.0 MG ORAL THREE TIMES A DAY Prescr ibed: October 30, 2024 3:13:5 0 PM [place] Y [id number] on October 30, 2024 3:13:50 PM UTC Continue d 909347 4364 2024 401 rOPINIRole HCl Oral Tablet 0.5 MG 0.5 MG ORAL THREE TIMES A DAY Prescr ibed: October 30, 2024 3:13:5 0 PM [place] [facility] [id number] on October 30, 2024 3:13:50 PM UTC Continue d 743292 3783 1185 220 Amoxicillin -Pot Clavulanate Oral Tablet 875-125 MG 1.0 TAB ORAL TWICE A DAY Prescr ibed: October 30, 2024 3:13:5 0 PM [place] Y [id number] on October 30, 2024 3:13:50 PM UTC Continue d 9676754 7902 5010 710 diphenoxyla te-atropine 2.5 mg-0.025 mg tablet 0.0 ORAL FOUR TIMES A DAY Prescr ibed: October 30, 2024 3:13:5 0 PM [place] Y [id number] on October 30, 2024 3:13:50 PM UTC Continue d 550014 8094 0000 310 furosemide 40 mg tablet 40.0 MG ORAL ONCE DAILY NEEDED Prescr ibed: October 30, 2024 3:13:5 0 PM [place] Y [id number] on October 30, 2024 3:13:50 PM UTC Continue d Free Text Med Coumadin 5.0 MG ORAL EVERY THURSDAY AND THURSDAY (COUMADIN) Prescr ibed: October 30, 2024 3:13:5 0 PM [place] PHY [id number] on October 30, 2024 3:13:50 PM UT Continue d 160238 4023 5063 730 famotidine 10 mg tablet 0.0 Prescr ibed: October 30, 2024 3:13:5 0 PM UTC [place] PHY [id number] on October 30, 2024 3:13:50 PM UT INPATIENT MEDICATIONS Status [facility] Medication Dose Route Frequency Rat e Quantity Dates Comments Physician Updated By Discont inued [id number] 0119 557 orphenadrin e (NORFLEX) 60 MG/2 ML SOLN 60.0 MG INTRAM USCULA R ONE TIME ONLY (SCHEDULED DOSE) Start: October 27, 2024 11:04: 00 PM UT End: October 27, 2024 11:04: 00 PM [facility] on October 27, 2024 11:03:00 PM UT Discont inued 8472625 8316 9379 501 ketorolac (TORADOL) 30 MG/ML SOLN 30.0 MG ONE TIME ONLY (SCHEDULED DOSE) Start: October 27, 2024 11:06: 00 PM UT End: October 27, 2024 11:06: 00 [facility] on October 27, 2024 11:04:00 PM UT Discont inued 6688637 1736 5613 000 ondansetron (ZOFRAN) INJ 4 MG/2 ML SOLN 4.0 MG INTRAV ENOUS ONE TIME ONLY (SCHEDULED DOSE) Start: October 27, 2024 11:06: 00 PM UTC End: October 27, 2024 11:06: 00 PM [facility] on October 27, 2024 11:04:00 PM UT Discont inued 9084099 6640 9733 201 cefTRIAXone (ROCEPHIN) 1 GM SOLR 1.0 GM INTRAV ENOUS ONE TIME ONLY (SCHEDULED DOSE) Start: October 28, 2024 2:12:0 0 AM UT End: October 28, 2024 2:12:0 0 AM [facility] on October 28, 2024 2:10:00 AM UT Discont inued 883171 7490 8105 548 metroNIDAZO LE (FLAGYL) PREMIX 500 MG/100 ML SOLN 500.0 MG INTRAV ENOUS ONE TIME ONLY (SCHEDULED DOSE) Start: October 28, 2024 2:12:0 0 AM UTC End: October 28, 2024 2:12:0 0 AM UTC [facility]ENCIO [facility] ED on October 28, 2024 2:11:00 AM UTC Discont inued 5692 3005 164 NOZIN NASAL PER DIEM POPSWAB SWAB 1.0 EA NASAL TWICE A DAY Start: October 28, 2024 1:00:0 0 PM UTC End: October 30, 2024 3:13:5 0 PM UTC [facility]EN[facility] EMILY Pickering [id number] on October 31, 2024 4:25:00 AM UTC Discont inued 0863 1830 546 sodium chloride 0.9% FLUSH 10 ML SOLN 10.0 ML INTRAV ENOUS NEEDED Start: October 28, 2024 3:58:0 0 AM UTC End: October 30, 2024 3:13:5 0 PM UTC [facility] EMILY Pick[place] [id number] on October 31, 2024 4:25:00 AM UTC Discont inued 3352832 3687 8004 904 sodium chloride 0.9% SOLN 1000. 0 ML INTRAV ENOUS CONT 75.0 ML/HR Start: October 28, 2024 3:58:0 0 AM UTC End: October 29, 2024 12:20: 51 PM UTC [facility] EMILY Pickering [id number] on October 29, 2024 12:20:00 PM UTC Discont inued 0050298 0049 5613 000 ondansetron (ZOFRAN) INJ 4 MG/2 ML SOLN 4.0 MG INTRAV ENOUS EVERY SIX HOURS NEEDED Start: October 28, 2024 3:58:0 0 AM UTC End: October 30, 2024 3:13:5 0 PM UTC [facility] EMILY Pickering [id number] on October 31, 2024 4:25:00 AM UTC Discont inued 0012 1176 230 MYLANTA DS ORAL LIQD 30.0 ML ORAL EVERY SIX HOURS NEEDED Start: October 28, 2024 3:58:0 0 AM UTC End: October 30, 2024 3:13:5 0 PM UTC [facility]EN[facility] EMILY Pickering [id number] on October 31, 2024 4:25:00 AM UTC Discont inued 648435 5083 4677 361 acetaminoph en (TYLENOL) 325 MG TABS 650.0 MG ORAL EVERY SIX HOURS NEEDED Start: October 28, 2024 3:58:0 0 AM UTC End: October 30, 2024 3:13:5 0 PM UTC [facility]EN[facility] EMILY Pickering [id number] on October 31, 2024 4:25:00 AM UTC Discont inued 8771198 4611 7043 198 MIRALAX PACKET 17 GM PACK 17.0 GM ORAL ONCE DAILY NEEDED Start: October 28, 2024 3:58:0 0 AM UTC End: October 30, 2024 3:13:5 0 PM UTC BREN[facility] EMILY Pickering [id number] on October 31, 2024 4:25:00 AM UTC Discont inued 3721329 1877 9733 201 cefTRIAXone (ROCEPHIN) 1 GM SOLR 1.0 GM INTRAV ENOUS EVERY 24 HOURS 100.0 ML/HR Start: October 29, 2024 3:00:0 0 AM UTC End: October 30, 2024 3:13:5 0 PM UTC [facility]EN[facility] EMILY Pickering [id number] on October 31, 2024 4:25:00 AM UTC Discont inued 5024102 4101 8055 311 sodium chloride 0.9% MB+ SOLN 50.0 ML INTRAV ENOUS EVERY 24 HOURS 100.0 ML/HR Start: October 29, 2024 3:00:0 0 AM UTC End: October 30, 2024 3:13:5 0 PM UTC [facility]EN[facility] EMILY Pickering [id number] on October 31, 2024 4:25:00 AM UTC Discont inued 545134 5293 8105 548 metroNIDAZO LE (FLAGYL) PREMIX 500 MG/100 ML SOLN 500.0 MG INTRAV ENOUS EVERY EIGHT HOURS 100.0 ML/HR Start: October 28, 2024 10:00: 00 AM UTC End: October 30, 2024 3:13:5 0 PM UTC [facility] EMILY Pickering [id number] on October 31, 2024 4:25:00 AM UTC Discont inued 4417111 7953 3985 601 cefTRIAXone (ROCEPHIN) 2 GM SOLR 2.0 GM INTRAV ENOUS ONE TIME ONLY (SCHEDULED DOSE) Start: October 28, 2024 4:23:0 0 AM UTC End: October 28, 2024 4:23:0 0 AM UTC QUIRINO FREIRE [facility] ED on October 28, 2024 4:21:00 AM UTC Discont inued 039660 2269 4717 861 furosemide (LASIX) 40 MG TABS 40.0 MG ORAL ONCE DAILY NEEDED Start: October 28, 2024 9:22:0 0 AM UTC End: October 30, 2024 4:25:0 0 PM UTC BREMORENO Pickering [id number] on October 31, 2024 4:25:00 AM UTC Discont inued Free Text Med famotidine 10 mg tablet 10.0 MG ORAL TWICE A DAY Start: October 28, 2024 1:00:0 0 PM UTC End: October 28, 2024 1:00:0 0 PM UTC BORIS JINEN on October 28, 2024 9:32:00 AM UTC Discont inued 350308 9503 9017 020 metoprolol succin (TOPROL XL) 50 MG TB24 10.0 MG ORAL AT BEDTIME Start: October 29, 2024 1:00:0 0 AM UTC End: October 29, 2024 1:00:0 0 AM UTC BRENGChristopher Pickering [id number] on October 28, 2024 12:15:00 PM UTC Discont inued Free Text Med rOPINIRole HCl [...] October 30, 2024 4:25:0 0 PM UTC BREMORENO Pickering [id number] on October 28, 2024 1:20:00 PM UTC Discont inued Free Text Med coumadin 2.5 MG ORAL EVERY THURSDAY AND THURSDAY (COUMADIN) Start: October 29, 2024 9:00:0 0 PM UTC End: October 29, 2024 9:00:0 0 PM UTC BORIS Pickering [id number] on October 28, 2024 1:21:00 PM UTC Discont inued Free Text Med Coumadin 5.0 MG ORAL EVERY THURSDAY AND THURSDAY (COUMADIN) Start: October 28, 2024 9:00:0 0 PM UTC End: October 28, 2024 9:00:0 0 PM UTC BRENGChristopher Pickering [id number] on October 28, 2024 1:18:00 PM UTC Discont inued 509359 4953 4017 688 NORCO 10-325 MG TABS 1.0 TAB ORAL EVERY SIX HOURS NEEDED Start: October 28, 2024 9:27:0 0 AM UTC End: October 28, 2024 6:34:3 4 PM UTC BREMADISYNChristopher Pickering [id number] on October 28, 2024 6:34:00 PM UTC Discont inued 158392 6383 1039 708 famotidine (PEPCID) 20 MG TABS 10.0 MG ORAL TWICE A DAY Start: October 28, 2024 1:00:0 0 PM UTC End: October 30, 2024 3:13:5 0 PM UTC BORIS AUSTINELE Ladan [id number] on October 31, 2024 4:25:00 AM UTC Discont inued 510507 0365 5 301 rOPINIRole (REQUIP) 0.25 MG TABS 0.5 MG ORAL THREE TIMES A DAY Start: October 28, 2024 1:00:0 0 PM UTC End: October 30, 2024 3:13:5 0 PM UTC BRENGChristopher DIAZ Ladan [id number] on October 31, 2024 4:25:00 AM UTC Discont inued 617984 5378 3112 401 warfarin (COUMADIN) 5 MG TABS 5.0 MG ORAL EVERY THURSDAY AND THURSDAY (COUMADIN) Start: October 28, 2024 9:00:0 0 PM UTC End: October 30, 2024 10:35: 07 AM UTC QUIRINO FREIRE [id number] on October 30, 2024 10:35:00 AM UTC Discont inued 703211 2119 2075 310 warfarin (COUMADIN) 2.5 MG TABS 2.5 MG ORAL EVERY (COUMADIN) Start: October 30, 2024 3:13:5 0 PM UTC End: October 30, 2024 3:13:5 0 PM UTC QUIRINO FREIRE [id number] on October 31, 2024 4:25:00 AM UTC Discont inued 803715 1503 2075 310 warfarin (COUMADIN) 2.5 MG TABS 2.5 MG ORAL EVERY THURSDAY AND THURSDAY (COUMADIN) Start: October 29, 2024 9:00:0 0 PM UTC End: October 30, 2024 10:24: 24 AM UTC QUIRINO BENNETTAID on October 30, 2024 10:25:00 AM UTC Discont inued 7566142 0502 8004 904 sodium chloride 0.9% SOLN 1000. 0 ML IV CONTIN UOUS CONT 125.0 ML/HR Start: October 28, 2024 2:09:0 0 PM UTC End: October 30, 2024 10:13: 28 AM UTC ISMAEL Gonzalez [id number] on October 30, 2024 10:13:00 AM UTC Discont inued 513903 9319 4022 101 ondansetron (ZOFRAN) 8 MG TABS 8.0 MG ORAL THREE TIMES A DAY Start: October 29, 2024 1:00:0 0 AM UTC End: October 29, 2024 1:00:0 0 AM UTC ISMAEL Gonzalez [id number] on October 28, 2024 10:15:00 PM UTC Discont inued Free Text Med Potassium Chloride ER Oral Tablet Extended Release 20 MEQ 20.0 MEQ ORAL ONCE DAILY Start: October 29, 2024 1:00:0 0 PM UTC End: October 29, 2024 1:00:0 0 PM UTC ISMAEL Gonzalez [id number] on October 28, 2024 6:40:00 PM UTC Discont inued 489655 8208 4019 688 NORCO 10-325 MG TABS 10.0 TAB ORAL EVERY FOUR HOURS Start: October 28, 2024 8:30:0 0 PM UTC End: October 28, 2024 8:30:0 0 PM UTC GUEVARA KYLE A [id number] on October 28, 2024 7:48:00 PM UTC Discont inued 589467 6409 7065 321 potassium chloride (K-DUR) 10 MEQ CPCR 20.0 MEQ ORAL ONCE DAILY Start: October 29, 2024 1:00:0 0 PM UTC End: October 30, 2024 10:15: 35 AM UTC QUIRINO TANI [id number] on October 30, 2024 10:15:00 AM UTC Discont inued 036840 5835 4017 688 NORCO 10-325 MG TABS 1.0 TAB ORAL EVERY FOUR HOURS Start: October 28, 2024 8:00:0 0 PM UTC End: October 30, 2024 10:14: 40 AM UTC QUIRINO TANI [id number] on October 30, 2024 10:14:00 AM UTC Discont inued 854541 2577 4022 101 ondansetron (ZOFRAN) 8 MG TABS 8.0 MG ORAL THREE TIMES A DAY Start: October 28, 2024 10:15: 00 PM UTC End: October 30, 2024 10:15: 35 AM UTC QUIRINO TANI [id number] on October 30, 2024 10:15:00 AM UTC Discont inued 958519 5194 4017 688 NORCO 10-325 MG TABS 1.0 TAB ORAL EVERY FOUR HOURS NEEDED Start: October 30, 2024 10:14: 00 AM UTC End: October 30, 2024 3:13:5 0 PM UTC GARIBAY ALENAIAH [id number] on October 31, 2024 4:25:00 AM UTC Discont inued XXXX XXX0 053 CONSULT (PHARMACY TO DOSE) 1 EA MIS 1.0 EA PHARMA CY TO DOSE PHARMACY CONSULT NEEDED Start: October 30, 2024 10:22: 00 AM UTC End: October 30, 2024 3:13:5 0 PM UT GUEVARA KYLE A [id number] on October 31, 2024 4:25:00 AM UTC Discont inued 494023 0849 2076 310 warfarin (COUMADIN) 2.5 MG TABS 2.5 MG ORAL EVERY THURSDAY AND THURSDAY (COUMADIN) Start: October 30, 2024 3:13:5 0 PM UTC End: October 30, 2024 3:13:5 0 PM UTC QUIRINO FREIRE [id number] on October 31, 2024 4:25:00 AM UT SOCIAL HISTORY SOCIAL HISTORY SNOMED-CT Social History Element Description Effective Dates Offered Cessation Comment UpdatedBy [id number] Current Tobacco smoking status Smoker, Current Status Unknown [id number] on October 27, 2024 10:17:23 PM UT [id number] Historical Tobacco smoking status Unknown If Ever Smoked [id number] on June 10, 2024 6:41:59 AM UT [id number] Historical Tobacco smoking status Never Smoked [id number] on November 03, 2023 7:23:45 PM UT 4804590 Historical Tobacco smoking status Former Smoker [id number] on May 20, 2023 4:14:02 PM UT SOCIAL HISTORY - Gender Sex: Female SOCIAL HISTORY - Sexual Behavior Sexual Orientation Gender Identity SNOMED-CT Description SNOMED-CT Description Activity Level No of Partners Partner Type UpdatedBy [id number] Female [id number] on April 07, 2023 1:59:13 AM UT Comment : SOCIAL HISTORY - Status : status i nformation is not available Intention in Next Year: intention information is not available VITAL SIGNS PATIENT VITAL SIGNS This section displays the mo st recent value for each vital sign as of November 03, 2024 11:11:19 AM UT Loinc Code Vital Sign Activity Date Result Updated By 8302-2 Body height October 28, 2024 3:05:32 AM UTC 162.56 cm (64.0 in) [id number] on October 28, 2024 3:05:32 [place] 44216-6 Body mass index (BMI ) [Ratio] October 28, 2024 3:05:32 AM UTC 33.528 kg/m2 [id number] on October 28, 2024 3:05:32 AM UT 3140-1 Body Surface Area Derived From Formula October 28, 2024 3:05:32 AM UTC 1.9365 m2 [id number] on October 28, 2024 3:05:32 AM UT 8310-5 Body temperature October 30, 2024 3:54:00 PM UTC 97.7 [degF] [id number] on October 30, 2024 3:58:15 PM UTC 41173-8 Body weight Measured October 28 3:05:32 AM UTC 88.6 kg (195.0 lb) [id number] on October 28, 2024 3:05:32 AM UTC 8462-4 Diastolic blood pressure October 30, 2024 3:54:00 PM UTC 74.0 mm[Hg] [id number] on October 30, 2024 3:58:15 PM UTC 8867-4 Heart rate October 30, 2024 3:54:00 PM UTC 77 /min [id number] on October 30, 2024 3:58:15 PM UTC 8478-0 Mean blood pressure October 30, 2024 3:54:00 PM UTC 107.0 mm[Hg] [id number] on October 30, 2024 3:58:15 PM UTC 77600-0 Oxygen saturation in Arterial blood by Pulse oximetry October 30, 2024 3:54:00 PM UTC 93.0 % [id number] on October 30, 2024 3:58:15 PM UTC 9279-1 Respiratory rate October 30, 2024 3:54:00 PM UTC 20 /min [id number] on October 30, 2024 3:58:15 PM UTC 8480-6 Systolic blood pressure October 30, 2024 3:54:00 PM UTC 162.0 mm[Hg] [id number] on October 30, 2024 3:58:15 PM UTC 44424-8 Vital capacity [Volume] Respiratory system by Spirometry October 30, 2024 2:00:00 PM UTC 3000.0 ml [id number] on October 30, 2024 3:06:20 PM UTC PEDIATRIC GROWTH CHART - VITAL SIGNS This [...] DIVERTICULITIS Ad[facility] October 29, 2024 [facility] [address] [facility] [address] Discharge October 30, 2024 4:25:00 PM [facility] HOME UNDER CARE OF HOME HEALTH ORG ENCOUNTER DIAGNOSES Notes information is not benito ilable. Code System Diagnosis Onset Date Diagnosis information is not available. 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 SITE [id number] on November 01, 2024 4:06:28 PM [facility] K57.32 ICD10 DIVERTICULITIS O F LARGE INTESTINE WITHOUT PERFORATION OR ABSCESS WITHOUT BLEEDING [id number] on November 01, 2024 4:06:28 PM UT E87.1 ICD10 HYPO-OSMOLALITY AND HYPONATR EMIA [id number] on November 01, 2024 4:06:28 PM UT K56.7 ICD10 ILEUS, UNSPECIFIED [id number] o n November 01, 2024 4:06:28 PM [facility] E86.0 ICD10 DEHYDRATION [id number] on November 01, 2024 4:06:28 PM [facility] Z90.49 ICD10 ACQUIRED ABSENCE OF OTHER SPECIFIED PARTS OF DIGESTIVE TRACT [id number] on November 01, 2024 4:06:28 PM [facility] I48.0 ICD10 PAROXYSMAL ATRIAL FIBRILLATI ON [id number] on November 01, 2024 4:06:28 PM [facility] Z86.711 ICD10 PERSONAL HISTORY OF PULMONAR Y EMBOLISM [id number] on November 01, 2024 4:06:28 PM UT Z66 ICD10 DO NOT RESUSCITATE [id number] o n November 01, 2024 4:06:28 PM UT Z79.01 ICD10 UPHOLSTERY TECH (CURRE NT) USE OF ANTICOAGULANTS [id number] on November 01, 2024 4:06:28 PM [facility] F17.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, UNSPECIFIED, UNCOMPLICATED [id number] on November 01, 2024 4:06:28 PM [facility] E87.5 ICD10 HYPERKALEMIA [id number] on November 01, 2024 4:06:28 PM [facility] Z88.1 ICD10 ALLERGY STATUS T O OTHER ANTIBIOTIC AGENTS [id number] on November 01, 2024 4:06:28 PM [facility] CARE TEAM Care Addiction Nurse Role TANI WIN Admitting TANI WIN Primary Attending CARLOS A COATS Referring CARLOS A COATS [facility] DISCHARGE INSTRUCTION DISCHARGE INSTRUCTION Encounter [id number] Admit Date October 29, 2024 3:58:00 AM [facility] Discharge Date October 30, 2024 4:25:00 PM [facility] PATIENT EDUCATION SUMMARY Patient/Visit Information: Patient Name: DESHAWN ROBLERO Diag: Attending Caregiver: QUIRINO FREIRE Discharge Instruction Sheets Provided: Acute Kidney Injury, Adult BEFAST-Stroke Warning Signs COVID-19 CDC-EN Discharge Information Diverticulitis, Tvyt-ia-Pclb Fall Prevention in Hospitals and in the Home [facility] Pain and Responsible Opioid (Pain Medication) Management KYNECT- HELP Medication Side Effects Suicide - Managing your Feelings Urinary Tract Infection, Female Patient Instructions: Followup Appointments/Instructions: HISTORY AND PHYSICAL NOTE HISTORY AND PHYSICAL NOTE Note Title Admission History an d Physical Date Of Service October 28, 2024 2:34:30 AM [facility] Created By [id number] on October 28 2:34:30 AM [facility] Signed By [id number] on October 29 12:17:55 AM [facility] Chief Complaint Right flank pain ANMOL on [...] provider regarding this pain and was prescribed [place]dall, which did not provide relief. CT abdomen [...] except as stated in HPI. Vital Signs 2100 HR 88 BP 109 / 84 O2Sat 98 1900 HR 84 RR 18 BP 100 [...] affect Lab Results [address] Scanning [id number] 2052 Urinalysis COLOR Drk Yellow APPEAR Hazy [...] 198 (H) ALT 22 ALP 245 (H) 1932 Hematology WBC 13.1 (H) RBCS 3.5 (L) [...] --Flagyl Hypertension AFib History of PE --continue LINING PRESSER metoprolol --continue LINING PRESSER Coumadin --continue LINING PRESSER furosemide --check INR in a.m. Code status: [...] 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 MG on 2017 PROGRESS NOTE PROGRESS NOTE Note Title Progress Note Date Of Service October 29, 2024 3:18:46 PM UTC Created By [id number] on October 29 3:18:46 PM UTC Signed By [id number] on October 29 3:26:31 PM UTC Chief [...] (ZOFRAN) 8 MG PO TID NOZIN NASAL PER DIEM POPSWAB 1 EA NASAL BID APPLY TO EACH NOSTRIL NORCO 10-325 MG 1 TAB PO Q4H sodium chloride 0.9% 1000 ML IVC Continuous 125 ML/HR Electronically signed by CHILANGO MG on [id number] Note Title Progress Note Date Of Service October 28, 2024 2:06:56 PM [facility] Created By [email or web address] on October 28 2:06:56 PM [facility] Signed By [id number] on October 29 12:17:33 AM [facility] Chief Complaint Right flank pain ANMOL on [...] cooperative, normal mood and affect Lab Results 42 Chemistry NA 132 (L) K 4.7 CHLORIDE 99 CO2 26.9 AGAP 10.8 GLUC 112 BUN 22 (H) CREAT 1.7 (H) GFR 31 (L) OSMO BASIM 279 TP 6.2 (L) ALB 2.0 (L) GLOB 4.2 ALB/GLOB 0.5 (L) CALCIUM 8.5 BILI TOT 0.70 AST 156 (H) ALT 18 ALP 212 (H) MG 2.1 42 Hematology WBC 8.8 RBCS 3.0 (L) HGB 8.6 (L) HCT 27.8 (L) MCV 92.1 MCH 28.5 MCHC 30.9 (L) RDW 14.4 (H) PLT S 180 MPV 9.4 NEUT% 79.9 (H) LYMPH% 7.6 (L) MONO% 9.0 EOS% 2.7 BASO% 0.2 IG% 0.6 NRBC% 0.0 NEUT# 7.0 (H) LYMPH# 0.7 (L) MONO# 0.8 EOS# 0.2 BASO# 0.0 IG# 0.05 NRBC# 0.00 MANDIFF? No 42 Coagulation PT 25.2 (H) INR 2.5 (H) 2218 Special Chemistry LACTATE 0.[address] Scanning [id number] 2052 Urinalysis COLOR Drk Yellow APPEAR Hazy GLUCOSE Norm BILIRUB 1 KETONE 5 SP GRAV 1.025 (H) BLOOD 10 PH 5 PROTEIN 30 UROBIL 1 NITRITE Negative ULEU 100 CULTURE? Yes RBC 0-2 WBC 1-5 EPITH Rare BACTERIA 2+ May-29-2025 1930 Chemistry NA 129 (L) K 5.1 (H) CHLORIDE 93 (L) CO2 29.3 AGAP 11.8 GLUC 165 (H) BUN 22 (H) CREAT 1.7 (H) GFR 31 (L) OSMO BASIM 276 TP 7.3 ALB 2.5 (L) GLOB 4.8 ALB/GLOB 0.5 (L) CALCIUM 9.2 BILI TOT 0.70 AST 198 (H) ALT 22 ALP 245 (H) 193 Hematology WBC 13.1 (H) RBCS 3.5 (L) [...] the patients current medications (including all prescriptions, wplo-nte-epgcyjq products, herbals, cannabis/cannabidiol products, and vitamin/mineral/dietary (nutritional) supplements). Barriers to Discharge: Response to antibiotics, resolution of flank pain Expected (tentative) Discharge: 24-48 hours Expected Disposition at Discharge: (home, SNF/Rehab, etc): Home with family Active Medications famotidine (PEPCID) 10 MG PO BID NOZIN NASAL PER DIEM POPSWAB 1 EA NASAL BID APPLY TO [...] IV LINE Time spent with Patient Total Mwqj-xb-Hsra time spent with patient/ family discussing diagnosis, testing, treatment plan and exam: 20 minutes Electronically signed by ISMAEL JENKINS on 1151 I hereby attest the note that was written on this patient accurately reflects the notations made when patient was examined. 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 Role on Team Status Start Date End Date Update d By QUIRINO MG Attending normal October 28, 2024 2:20:20 AM [facility] October 28, 2024 4:00:00 AM [facility] [id number] on October 28, 2024 2:20:20 AM [facility] QUIRINO MG Admitting normal October 28, 2024 2:20:20 AM [facility] October 28, 2024 4:00:00 AM [facility] [id number] on October 28, 2024 2:20:20 AM [facility] PAULY Falcon Referring normal October 27 11:02:22 PM [facility] October 28, 2024 4:00:00 AM [facility] [id number] on October 28, 2024 2:20:20 AM [facility] ARACELI ASENCIO V Attending normal October 27, 2024 11:02:22 PM [facility] October 28, 2024 2:20:20 AM [facility] [id number] on October 28, 2024 2:20:20 AM [facility] ARACELI ASENCIO V Admitting normal October 27, 2024 11:02:22 PM [facility] October 28, 2024 2:20:20 AM [facility] [id number] on October 28, 2024 2:20:20 AM [facility] PAULY Falcon PCP normal October 27 9:43:47 PM [facility] October 28, 2024 4:09:44 AM [facility] [id number] on October 28, 2024 2:20:20 AM [facility]
--- OUTSIDE RECORDS SUMMARY | 2024-11-03 22:34 | XMS_ITS | Continuity of Care Document ---
Author Organization [facility] Phone Care Team Providers Care Tool And Die Technician Name Role Phone PARISH FOURNIER Primary Attending PARISH FOURNIER Unavailable CARLOS A COATS Primary Care Unavailable PARISH FOURNIER Admitting ALLERGIES AND ADVERSE REACTIONS ALLERGIES AND ADVERSE REACTIONS Code System Allergy Substance Adverse Reaction Date Reaction (Severity) [place] [id number] RXNorm TETRACYCLINE Rash (Moderate) Shock active [id number] on October 28, 2024 4:17:16 AM UTC RESULTS Patient: KAREN HESS Date of : [birth year] 4 LABORATORY RESULTS ORDER 100: CBC AUTO W DIFF ( LOINC: 16816-2) ORDER DATE: November 01, 2024 7:22:00 PM UTC Specimen Source: EDTA Specimen Type: Blood specime n with EDTA PERFORMING LAB: [address] [id number] Result Comment: Final Result Date: November 01, 2024 7:31:00 PM UTC (TECH: JCG) LOINC TEST FLAG RESULT REFERENCE RANGE UPDATED BY 6690-2 Leukocytes [#/volume] in Blood by Automated count N 6.7 K/ul 4.0 K/ul - 10.5 K/ul November 01, 2024 7:31:00 PM UTC (TECH: JCG) 789-8 Erythrocytes [#/volume] in Blood by Automated count L 3.2 M/mm3 4.2 M/mm3 - 6.4 M/mm3 November 01, 2024 7:31:00 PM UTC (TECH: JCG) 718-7 Hemoglobin [Mass/volume] in Blood L 9.0 gm/dl 12.5 gm/dl - 16.0 gm/dl November 01, 2024 7:31:00 PM UTC (TECH: Pops) 02578-3 Hematocrit [Volume Fraction] of Blood L 28.9 % 37.0 % - 47.0 % November 01, 2024 7:31:00 PM UTC (TECH: JCG) 787-2 Erythrocyte mean corpuscular volume [Entitic volume] by Automated count N 90.9 fl 78 fl - 100 fl November 01, 2024 7:31:00 PM UTC (TECH: JCG) 785-6 Erythrocyte mean corpuscular hemoglobin [Entitic mass] by Automated count N 28.3 pg 27 pg - 31 pg November 01, 2024 7:31:00 PM UTC (TECH: JCG) 786-4 Erythrocyte mean corpuscular hemoglobin concentration [Mass/volume] by Automated count L 31.1 g/dl 32 g/dl - 36 g/dl November 01, 2024 7:31:00 PM UTC (TECH: JCG) 16935-5 Erythrocyte distribution width [Ratio] H 14.5 % 11.5 % - 14.0 % November 01, 2024 7:31:00 PM UTC (TECH: JCG) 777-3 Platelets [#/volume] in Blood by Automated count N 257 K/ul 150 K/ul - 450 K/ul November 01, 2024 7:31:00 PM UTC (TECH: JCG) 32124-8 Platelet mean volume [Entitic volume] in Blood by Automated count H 9.6 fl 6 fl - 9.5 fl November 01, 2024 7:31:00 PM UTC (TECH: JCG) 31210-2 Neutrophils/100 leukocytes in Blood H 75.3 % 43 % - 65 % November 01, 2024 7:31:00 PM UTC (TECH: JCG) 736-9 Lymphocytes/100 leukocytes in Blood by Automated count L 13.9 % 20.5 % - 45.5 % November 01, 2024 7:31:00 PM UTC (TECH: JCG) 5905-5 Monocytes/100 leukocytes in Blood by Automated count N 7.5 % 5.5 % - 11.7 % November 01, 2024 7:31:00 PM UTC (TECH: JCG) 713-8 Eosinophils/100 leukocytes in Blood by Automated count N 2.2 % 0.9 % - 2.9 % November 01, 2024 7:31:00 PM UTC (TECH: JCG) 706-2 Basophils/100 leukocytes in Blood by Automated count N 0.4 % 0.2 % - 1.0 % November 01, 2024 7:31:00 PM UTC (TECH: JCG) 69629-3 Immature granulocytes/100 leukocytes in Blood by Automated count N 0.7 % 0.0 % - 0.8 % November 01, 2024 7:31:00 PM UTC (TECH: JCG) 00889-6 Nucleated cells [#/volume] in Blood N 0.0 % November 01, 2024 7:31:00 PM UTC (TECH: JCG) 38290-3 Neutrophils [#/volume] in Blood H 5.0 K/uL 2.2 K/uL - 4.8 K/uL November 01, 2024 7:31:00 PM UTC (TECH: JCG) 731-0 Lymphocytes [#/volume] in Blood by Automated count L 0.9 CELL/MCL 1.3 CELL/MCL - 2.9 CELL/MCL November 01, 2024 7:31:00 PM UTC (TECH: JCG) 742-7 Monocytes [#/volume] in Blood by Automated count N 0.5 CELL/MCL 0.3 CELL/MCL - 0.8 CELL/MCL November 01, 2024 7:31:00 PM UTC (TECH: JCG) 711-2 Eosinophils [#/volume] in Blood by Automated count N 0.2 CELL/MCL 0 CELL/MCL - 0.2 CELL/MCL November 01, 2024 7:31:00 PM UTC (TECH: JCG) 704-7 Basophils [#/volume] in Blood by Automated count N 0.0 CELL/MCL 0.0 CELL/MCL - 1.0 CELL/MCL November 01, 2024 7:31:00 PM UTC (TECH: JCG) 09495-3 Immature granulocytes [#/volume] in Blood N 0.05 K/ul November 01, 2024 7:31:00 PM UTC (TECH: JCG) 46167-1 Nucleated cells [#/volume] in Blood N 0.00 K/uL November 01, 2024 7:31:00 PM UTC (TECH: JCG) 78699-0 Manual Differential panel - Blood N NO November 01, 2024 7:31:00 PM UTC (TECH: JCG) ORDER 200: CEA (LOINC: ) ORDER DATE: November 01, 2024 7:22:00 PM UTC Specimen Source: SERUM Specimen Type: Serum specime n PERFORMING LAB: [place] [id number] [facility] [id number] Result Comment: November 03, 2024 5:10:00 PM UTC Nonsmokers <3.9 Result Comment: November 03, 2024 5:10:00 PM UTC Smokers <5.6 Result Comment: November 03, 2024 5:10:00 PM UTC . Result Comment: November 03, 2024 5:10:00 PM UTC [facility] Electrochemiluminescence Immunoassay Result Comment: November 03, 2024 5:10:00 PM UTC (ECLIA) Result Comment: November 03, 2024 5:10:00 PM UTC . Result Comment: November 03, 2024 5:10:00 PM UTC Values obtained with different assay methods or kits Result Comment: November 03, 2024 5:10:00 PM UTC cannot be used interchangeably. Results cannot be Result Comment: November 03, 2024 5:10:00 PM UTC interpreted as absolute evidence of the presence or Result Comment: November 03, 2024 5:10:00 PM UTC absence of malignant disease. Result Comment: November 03, 2024 5:10:00 PM UTC Performed at: [facility] Result Comment: November 03, 2024 5:10:00 PM UTC [address], [place] [id number] Result Comment: November 03, 2024 5:10:00 PM UTC Manager Meeting: Cayden Lloyd PhD, Phone: [phone] Result Comment: November 03, 2024 5:10:00 PM UTC Final Result Date: November 03, 2024 5:40:00 PM UTC (TECH: LAB) LOINC TEST FLAG RESULT REFERENCE RANGE UPDA ELISHA BY 2038-10 Carcinoembryonic Ag [Mass/volume] in Serum or Plasma H 86.4 ng/mL 0.0-4.7 November 03, 2024 5:40:00 PM UTC (TECH: LAB) ORDER 300: COMP METABOLIC PA BEBETO (LOINC: 24556-3) ORDER DATE: November 01, 2024 7:22:00 PM UTC Specimen Source: PLASMA Specimen Type: Plasma specim en PERFORMING LAB: [address] [id number] Result Comment: Final Result Date: November 01, 2024 7:53:00 PM UTC (TECH: PP) LOINC TEST FLAG RESULT REFERENCE RANGE UPDA ELISHA BY 2951-2 Sodium [Moles/volume ] in Serum or Plasma N 139 mmol/L 136 mmol/L - 145 mmol/L November 01, 2024 7:53:00 PM UTC (TECH: PP) 2823-3 Potassium [Moles/vol ume] in Serum or Plasma N 3.6 mmol/L 3.6 mmol/L - 5.0 mmol/L November 01, 2024 7:53:00 PM UTC (TECH: PP) 2075-0 Chloride [Moles/volu me] in Serum or Plasma N 103 mmol/L 98 mmol/L - 107 mmol/L November 01, 2024 7:53:00 PM UTC (TECH: PP) 8-9 Carbon dioxide, tota l [Moles/volume] in Serum or Plasma N 27.8 mmol/L 21.0 mmol/L - 32.0 mmol/L November 01, 2024 7:53:00 PM UTC (TECH: PP) 34098-2 Anion gap in Blood N 11.8 J 2024 7:53:00 PM UTC (TECH: PP) 2345-7 Glucose [Mass/volume ] in Serum or Plasma N 112 mg/dl 70 mg/dl - 120 mg/dl November 01, 2024 7:53:00 PM UTC (TECH: PP) 6299-2 Urea nitrogen [Mass/volume] in Blood N 9 mg/dL 7 mg/dL - 18 mg/dL October 7:53:00 PM UTC (TECH: PP) 98826-7 Creatinine [Moles/vo lume] in Blood N 1.1 mg/dL 0.6 mg/dL - 1.3 mg/dL November 01, 2024 7:53:00 PM UTC (TECH: PP) 36654-7 Glomerular filtratio n rate/1.73 sq M.predicted by Creatinine-based formula (MDRD) L 52 mlpermin 60 mlpermin November 01, 2024 7:53:00 PM [place] (TECH: PP) 43421-1 Osmolality of Serum or Plasma by calculated by sum of electrolytes N 289 mosm/kg 275 mosm/kg - 301 mosm/kg November 01, 2024 7:53:00 PM UTC (TECH: PP) 2885-2 Protein [Mass/volume ] in Serum or Plasma N 6.5 g/dl 6.4 g/dl - 8.2 g/dl November 01, 2024 7:53:00 PM UTC (TECH: PP) 1751-7 Albumin [Mass/volume ] in Serum or Plasma L 2.2 g/dl 3.4 g/dl - 5.0 g/dl November 01, 2024 7:53:00 PM UTC (TECH: PP) 2336-6 Globulin [Mass/volum e] in Serum N 4.3 November 01, 2024 7:53:00 PM UTC (TECH: PP) 1759-0 Albumin/Globulin [Ma ss Ratio] in Serum or Plasma L 0.5 0.7 - 2 October 7:53:00 PM UTC (TECH: PP) 45011-8 Calcium [Mass/volume ] in Serum or Plasma N 8.5 mg/dl 8.5 mg/dl - 10.5 mg/dl November 01, 2024 7:53:00 PM UTC (TECH: PP) 1975-2 Bilirubin.total [Mass/volume] in Serum or Plasma N 0.40 mg/dL 0.10 mg/dL - 1.00 mg/dL November 01, 2024 7:53:00 PM UTC (TECH: PP) 1920-8 Aspartate aminotrans ferase [Enzymatic activity/volume] in Serum or Plasma N 33 U/L 0 U/L - 37 U/L November 01, 2024 7:53:00 PM UTC (TECH: PP) 1742-6 Alanine aminotransfe rase [Enzymatic activity/volume] in Serum or Plasma N 11 U/L 0 U/L - 65 U/L November 01, 2024 7:53:00 PM UTC (TECH: PP) 6768-6 Alkaline phosphatase [Enzymatic activity/volume] in Serum or Plasma H 327 U/L 46 U/L - 116 U/L November 01, 2024 7:53:00 PM [facility] (TECH: PP) LABORATORY NARRATIVE RESULTS Information is not available RADIOLOGY RESULTS Information is not available PATHOLOGY NARRATIVE RESULTS Information is not available MICROBIOLOGY RESULTS No Micro Labs/Results Exist for Patient BLOOD ADMIN RESULTS Information is not available MEDICATIONS HOME MEDICATIONS Status RXNORM NDC Medication Dose Route Frequency Dates Comments Reported By Updated By Drug Treatment Unknown DISCHARGE MEDICATIONS Status RXNORM NDC Medication Dose Route Frequency Dates Comments Physician Updated By No Discharge Medication Info rmation Available INPATIENT MEDICATIONS Status RXNORM NDC Medication Dose Route Frequency Rat e Quantity Dates Comments Physician Updated By No Inpatient Medication Info rmation Available SOCIAL HISTORY SOCIAL HISTORY SNOMED-CT Social History Element Description Effective Dates Offered Cessation Comment UpdatedBy [id number] Historical Tobacco smoking status Smoker, Current Status Unknown [id number] on October 27, 2024 10:17:23 PM [facility] [id number] Historical Tobacco smoking status Unknown If Ever Smoked [id number] on June 10, 2024 6:41:59 AM [facility] [id number] Historical Tobacco smoking status Never Smoked [id number] on November 03, 2023 7:23:45 PM [facility] [id number] Historical Tobacco smoking status Former Smoker [id number] on May 20, 2023 4:14:02 PM [facility] SOCIAL HISTORY - Gender Sex: Female SOCIAL HISTORY - Sexual Behavior Sexual Orientation Gender Identity SNOMED-CT Description SNOMED-CT Description Activity Level No of Partners Partner Type UpdatedBy [id number] Female [id number] on April 07, 2023 1:59:13 AM [facility] Comment : SOCIAL HISTORY - Status : status i nformation is not available Intention in Next Year: intention information is not available HEALTH CONCERNS Problems Concern Status Health Concern problem infor mation not available. Smoking Status Status Years Used Consumed packs p er day Health Concern smoking histo ry information not available. Family History Concern Status Health Concern family histor y information not available. ENCOUNTERS ENCOUNTER INFORMATION Reason for Visit Not Specified Admission November 01, 2024 5:38:[address] [address] Discharge November 01, 2024 5:38:00 PM [facility] DISC HARGED TO HOME OR SELF CARE ENCOUNTER DIAGNOSES Notes information is not benito ilable. Code System Diagnosis Onset Date Diagnosis information is not available. ABSTRACT DIAGNOSES Code System Diagnosis Updated By C18.2 ICD10 MALIGNANT NEOPLASM OF ASCEND ING COLON [id number] on November 03, 2024 8:08:49 AM [facility] C18.2 ICD10 MALIGNANT NEOPLASM OF ASCEND ING COLON [id number] on November 03, 2024 8:08:51 AM [facility] CARE TEAM Care Tool And Die Technician Role PARISH FOURNIER Primary Attending PARISH FOURNIER Referring CARLOS A COATS Primary Care PARISH FOURNIER Admitting CARE TEAM CARE tap grinder Role on Team Status Start Date End Date Update d By PAULY Falcon PCP normal November 01 4:00:00 AM [facility] November 01, 2024 5:38:00 PM [facility] [id number] on November 01, 2024 5:40:01 PM [facility] IRLANDA JENKINS Referring normal November 01, 2024 4:00:00 AM [facility] November 01, 2024 5:38:00 PM [facility] [id number] on November 01, 2024 5:40:01 PM [facility] IRLANDA JENKINS Attending normal November 01, 2024 4:00:00 AM [facility] November 01, 2024 5:38:00 PM [facility] [id number] on November 01, 2024 5:40:01 PM [facility] IRLANDA JENKINS Admitting normal November 01, 2024 4:00:00 AM [facility] November 01, 2024 5:38:00 PM [facility] [id number] on November 01, 2024 5:40:01 PM [facility]
--- OUTSIDE RECORDS SUMMARY | 2024-11-04 11:15 | XMS_ITS | Encounter Summary ---
Author Organization [place] [address] Care Team Providers Care Emergency Worker Name Role Phone Luis Villasenor MD Unavailable [phone] Luis Villasenor MD Primary Care Provider Reason for Visit * Reason Comments Hospital Follow Up Diverticulitis Encounter Details Date Type Department Care Team (Latest Contact Info) Description 11/04/2024 11:15 AM EDT Office Visit SEP Sarah [address] [place] [phone] Amarilis Nolan, FORCER MAKER [address] [place] [address] Diverticulitis of large intestine without perforation or [...] this encounter Progress Notes * Amarilis Nolan, FORCER MAKER - 11/04/2024 11:15 AM EDT Assessment & [...] without bleeding Comments: inpatient hospital stay at [facility] November 03, symptoms resolved Peripheral edema [...] consistent with colon primary. Continues with chemotherapy [id number]. Managed by [facility] Oncology and Hematology 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) (Chronic) Overview: CT scan 01/2023 with multiple masses of liver and ascending colon thickening. 04/2023, R hemicolectomy and anastomosis, pathology of invasive moderately differentiated adenocarcinoma. Metastatic adenocarcinoma in 2/10 lymph nodes. Wedge resection of the liver with metastatic adenocarcinoma consistent with colon primary. Continues with chemotherapy [id number]. Managed by [facility] Oncology and Hematology Return in about 6 weeks (around 12/16/2024) for 6 week follow up, video visit ok. Subjective CHEMA Roblero is a 79 y.o. female Chief Complaint Patient presents with Hospital Follow Up Diverticulitis History of Present Illness The patient is a 79-year-old female here for a hospital follow-up. She was admitted to [facility] for diverticulitis. Denies ongoing symptoms since [...] The provider educated the patient (or legal airline security representative) on the use of the ambient listening artificial intelligence tool, [employer]. They were informed that this AI tool [...] of such information, the patient (or legal airline security representative), and each individual in attendance with [...] an ideal body weight General No Grace Redomnd CMA Stay Tobacco Free Lifestyle Grace Avila [...] documented as of this encounter Care Teams Emergency Worker Relationship Specialty Start Date End Date Luis Villasenor MD [address] [place] [id number] PCP - OBGYN 01/09/10 Luis Villasenor MD [address] [place] [phone] PCP - General 01/09/10 documented as of this encounter
--- OUTSIDE RECORDS SUMMARY | 2024-11-14 09:00 | XMS_ITS | Encounter Summary ---
Author Organization [place] [address] Care Team Providers Care Petroleum Supply Specialist Name Role Phone Luis Villasenor MD Unavailable [phone] Luis Villasenor MD Primary Care Provider [phone] Reason for Visit * Reason Comments Follow Up Needs labs, feeling drained, wants a b-12 Encounter Details Date Type Department Care Team (Late Contact Info) Description 11/14/2024 9:00 AM EDT Office Visit SEP Sarah [address] 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 Youngblood, cardiology, [facility] Orders: - warfarin (COUMADIN) 5 mg [...] Gran% 0.6 % Lymph Percent 9.9 % [place] Percent 8.3 % Eos Percent 3.5 % Baso Percent 0.6 % Neut # 7.7 (H) 1.6 - 6.1 x10(3)/mcL IMMGRAN# 0.1 0.0 - 0.1 x10(3)/mcL Lymph # 1.0 (L) 1.2 - 3.9 x10(3)/mcL [place] # 0.8 0.3 - 0.9 x10(3)/mcL Eos# [...] The provider educated the patient (or legal field representatives director) on the use of the ambient listening artificial intelligence tool, [employer]. They were informed that this AI [...] of such information, the patient (or legal field representatives director), and each individual in attendance with the [...] EDT [facility] [place] Percent 8.3 % 11/14/2024 3:44 PM EDT [...] 3:44 PM EDT [facility] [place] # 0.8 0.3 - 0.9 x10(3)/mcL 11/14/2024 3:44 PM EDT [facility] Eos# 0.4 0.0 - 0.5 x10(3)/mcL 11/14/2024 3:44 PM EDT [facility] Baso # 0.1 0.0 - 0.1 x10(3)/mcL 11/14/2024 3:44 PM EDT [facility] Blood VENOUS BLOOD / Unknown Venipuncture / Unknown 11/14/2024 10:07 AM EDT 11/14/2024 10:07 AM EDT us Amarilis Nolan CLINICAL UNIT COORDINATOR HEMATOLOGY ORDERABLES Fin al Result [facility] [address] [facility] , [place] [address] * (ABNORMAL) COMPREHENSIVE METABOLIC PANEL (11/14/2024 10:07 [...] - 4.6 gm/dL 11/14/2024 4:07 PM EDT [facility] Total Protein 7.8 6.4 - 8.3 gm/dL 11/14/2024 4:07 PM EDT [facility] Bili Total 0.6 0.2 - 1.3 mg/dL 11/14/2024 4:07 PM EDT [facility] ALT <5 <=41 U/L 11/14/2024 4:07 PM EDT [facility] AST 23 <=40 U/L 11/14/2024 4:07 PM EDT [facility] Alk Phos 465(H) 36 - 123 U/L 11/14/2024 4:07 PM EDT [facility] eGFR (CKD-EPIcr 2020) 39(L) >=60 mL/min/1.7 3 m2 11/14/2024 4:07 PM EDT [facility] Comment:Estimated GFR was ca lculated using the CKD-EPIcr (2020) equation refit without race. The equation is recommended by the National Kidney Foundation - [place] [employer] Nephrology Task Force. Blood VENOUS BLOOD / Unknown Venipuncture / Unknown 11/14/2024 10:07 AM EDT 11/14/2024 10:07 AM EDT Amarilis Nolan CLINICAL UNIT COORDINATOR CHEMISTRY ORDERABLES Kell orlando Result [facility] [address] [facility] , [address] [place] [id number] * (ABNORMAL) FERRITIN (11/14/2024 10:07 AM EDT) Ferritin 728(H) 30 - 150 ng/mL 11/14/2024 4:07 PM EDT [facility] Comment:The lower threshold of [...] 11/14/2024 10:07 AM EDT Narrative [facility] - 11/14/2024 4:07 PM EDT Ingestion of rocio doses of biotin (>5 mg/day) taken within 8 hours of drawing blood sample can interfere with this immunoassay test. Amarilis Nolan APRN CHEMISTRY ORDERABLES Kell l Result Performing Organization Address City/[facility] Co de Phone Number [facility] [address] [facility] , [place] [address] * (ABNORMAL) IRON+TIBC (11/14/2024 10:07 AM EDT) Iron 26(L) 30 - 160 mcg/dL 11/14/2024 4:07 PM EDT [facility] Transferrin 153(L) 200 - 360 mg/dL 11/14/2024 4:07 PM EDT [facility] Transferrin Saturation 12(L) 20 - 50 % 11/14/2024 4:07 PM EDT [facility] TIBC 214(L) 250 - 400 mcg/dL 11/14/2024 4:07 PM EDT [facility] Blood VENOUS BLOOD / Unknown Venipuncture / Unknown 11/14/2024 10:07 AM EDT 11/14/2024 10:07 AM EDT Amarilis Nolan APRN CHEMISTRY ORDERABLES Kell l Result Performing Organization Address City/[facility]/ZIP Co de Phone Number [facility] [address] [facility] , [place] [address] * VITAMIN B12/ FOLIC ACID (11/14/2024 10:07 AM EDT) Vitamin B12 801 232 - 1,245 pg/mL 11/14/2024 4:02 PM EDT [facility] Folate 9.89 >=4.80 ng/mL 11/14/2024 4:02 PM EDT [facility] Blood VENOUS BLOOD / Unknown Venipuncture / Unknown 11/14/2024 10:07 AM EDT 11/14/2024 10:07 AM EDT Narrative [facility] - 11/14/2024 4:02 PM EDT Ingestion of rocio doses of biotin (>5 mg/day) taken within 8 hours of drawing blood sample can interfere with this immunoassay test. us Amarilis Nolan APRN CHEMISTRY ORDERABLES Kell darion Result [facility] [address] [facility] , [address] [place] [id number] documented in this encounter Visit Diagnoses Diagnosis [...] documented as of this encounter Care Teams Petroleum Supply Specialist Relationship Specialty Start Date End Date Luis Villasenor MD [address] [place] [phone] PCP - OBGYN 01/09/10 Luis Villasenor MD [address] [place] [phone] PCP - General 01/09/10 documented as of this encounter
--- OUTSIDE RECORDS SUMMARY | 2024-11-15 09:13 | XMS_ITS | Encounter Summary ---
Author Organization [place] [address] Care Team Providers Care Machine Cutter Name Role Phone Luis Villasenor MD Unavailable [phone] Luis Villasenor MD Primary Care Provider [phone] Reason for Visit * Reason Onset Date Comments Orders 09/22/2024 personal touch [facility] care Encounter Details Date Type Department Care Team (Late st Contact Info) Description 09/22/2024 Telephone SEP Sarah [facility] [place] [address] Luis Villasenor MD [facility] [place] [address] Orders (personal touch home care) Social History Tobacco Use Types Packs/Day Years [...] Nghia Aguirre CMA documented in this encounter Miscellaneous Notes * Telephone Encounter - Natividad Choe MA - 09/22/2024 11:42 AM EDT Verbals given to Lois * Telephone Encounter - Jodi Bailey LPN - 09/22/2024 11:20 AM EDT Select the most appropriate reason for this telephone message: Order Request Who is requesting the Order(s): Home Health Facility: [facility] (Caller name: lois ) What Orders are being requested: Shelter Reason Orders are Needed (Diagnosis): check over vital - head to toe assessment and medication education Is a verbal order being requested: Yes If non-[facility], where should the order be faxed (include fax number): verbals Is this for in-patient or home health: Home Health (Frequency: one prn visit for 09/23/24 ) Return Method of Communication: Phone Call Additional Information: Please advise,thank you documented in this encounter Plan of Treatment [...] documented as of this encounter Visit Diagnoses Not on filedocumented in this encounter Additional Health Concerns Assessment Noted Time A fall risk assessment has been complete d for the patient 06/14/2024 9:03 AM EST documented as of this encounter Care Teams Machine Cutter Relationship Specialty Start Date End Date Luis Villasenor MD [address] [place] [phone] PCP - OBGYN 01/09/10 Luis Villasenor MD [address] [place] [phone] PCP - General 01/09/10 documented as of this encounter
--- OUTSIDE RECORDS SUMMARY | 2024-11-15 09:13 | XMS_ITS | Encounter Summary ---
Author Organization [place] [address] Care Team Providers Care Cardroom Worker Name Role Phone Luis Villasenor MD Unavailable [phone] Luis Villasenor MD Primary Care Provider Reason for Visit * Reason Onset Date Comments Orders 09/30/2024 SN,verbal Encounter Details Date Type Department Care Team (Late Contact Info) Description 09/30/2024 Telephone SEP Sarah [facility] [place] [address] Luis Villasenor MD [place] [facility] [place] [address] Orders (SN,verbal ) Social History Tobacco Use Types Packs/Day Years [...] Aguirre CMA * Does this person have difficulty dressing or bathing? Answer Date of Assessment Author No 02/09/2020 8:59 AM EDNghia Paris CMA * Because of a physical, mental [...] encounter Miscellaneous Notes * Telephone Encounter - Cecilia Pillai RMA - 10/03/2024 10:20 AM EDT Select the most appropriate reason for this telephone message: Order Request Who is requesting the Order(s): Home Health Facility: [facility] (Caller name: Krista ) What Orders are being requested: Verbals given to Lois Return Method of Communication: Phone Call Additional Information: Krista stated that she did not hear about the orders Let her know that Verbals given to Lois And she is going to call her to find ou * Telephone Encounter - Natividad Choe MA - 09/30/2024 10:11 AM EDT Verbals given to Lois * Telephone Encounter - Elie Moreno - 09/30/2024 10:05 AM EDT Select the most appropriate reason for this telephone message: Order Request Who is requesting the Order(s): Home Health Facility: [facility] (Caller name: Ivis) What Orders are being requested: Intermediate Reason Orders are Needed (Diagnosis): increase frequency for more education Is a verbal order being requested: Yes If non-[facility], where should the order be faxed (include fax number): n/a Is this for in-patient or home health: Home Health (Frequency: increase to 2 x 7) Return Method of Communication: Phone Call Additional Information: N/A documented in this encounter Plan of Treatment [...] documented as of this encounter Care Teams Cardroom Worker Relationship Specialty Start Date End Date Luis Villasenor MD [address] [place] [address] PCP - OBGYN 01/09/10 Luis Villasenor MD [address] [place] [phone] PCP - General 01/09/10 documented as of this encounter
--- OUTSIDE RECORDS SUMMARY | 2024-11-15 09:13 | XMS_ITS | Encounter Summary ---
Author Organization [place] [address] Care Team Providers Care Drugless Doctor Name Role Phone Luis Villasenor MD Unavailable [phone] Luis Villasenor MD Primary Care Provider Reason for Visit * Reason Onset Date Comments 911/Red Flag 09/19/2024 possible blood c lot Encounter Details Date Type Department Care Team (Late st Contact Info) Description 09/19/2024 Nurse Triage SEP Sarah [facility] [place] [address] Luis Villasenor MD [address] [place] [address] Peripheral edema (Primary Dx) Social History Tobacco Use Types Packs/Day Years [...] 02/09/2020 8:59 AM EDNghia Paris CMA * Is the person blind or [...] 02/09/2020 8:59 AM Nghia Aguirre CMA * Because of a physical, mental [...] Filled Start Date End Date fUROsemide (LASIX) 20 mg Oral Tablet Take 1 Tablet by mouth daily. 90 Tablet 1 09/19/2024 10/02/2024 documented in this encounter Miscellaneous Notes * Telephone Encounter - Natividad Choe MA - 09/19/2024 12:51 PM EDT Patient was referred to ED. * Telephone Encounter - Martha Giraldo RN - 09/19/2024 10:53 AM EDT Nurse Triage Call -Chief Complaint: Pt has swelling to right leg, hx DVTs, has colon cancer. Pain in calf. No pittingedema. Cackles to both lungs, dyspnea at rest. -Reported by: Home health RN -Vitals: No vitals obtained on this call -Disposition per protocol: ED -Follow up/Concerns: Pt will go to ED Coumadin 1.1 Thursday. Reason for Disposition Difficulty breathing at rest Protocols used: Leg Swelling and Edema-A-[place] * Telephone Encounter - Stephanie Leon - 09/19/2024 10:49 AM EDT Select the most appropriate reason for this telephone message: 911 Emergency Who is calling (be specific): Amna [facility] - Home Health Symptoms/Situation: Home health reports right leg swelling w/out pitting and a history of DVT. Pt denies pain but history of DVT without pain. Pt didn't want to go to the ER. Home health reported coumadin levels at 1.1 Thursday. Pt has crackling in both lungs and wanting to know if a dose of lasix can be given. Pt is no longer doing treatments for cancer and declined hospice. Were emergency services dispatched: No If No, was the patient advised to call 911 or proceed to the nearest emergency department if they are experiencing a life threatening condition: Yes Return Method of Communication: Phone Call Was patient transferred to Nurse Triage for additional help? Yes Additional Information: Home health was advised to go to ER for possible blood clot but requested to be transferred to nurse triage. documented in this encounter Plan of Treatment Not on file documented as of this encounter Goals Goal Patient Goal Type Associated Problems Recent Progress Patient-Stated? Author Blood Pressure < 140/90 Blood Pressure 124/78(2024 9:10 AM EDT) No Nyla, Grace, SHIFT FOREMAN Maintain a healthy diet, exercise regularly and maintain an ideal body weight General No Grace Redmond CMA Stay Tobacco Free Lifestyle No Grace Redmond CMA documented as of this encounter Visit Diagnoses Diagnosis Peripheral edema- Primary Edema documented in this encounter Additional Health Concerns Assessment Noted Time A fall risk assessment has been complete d for the patient 06/14/2024 9:03 AM EST documented as of this encounter Care Teams Drugless Doctor Relationship Specialty Start Date End Date Luis Villasenor MD [address] [place] [address] PCP - OBGYN 01/09/10 Luis Villasenor MD [address] [place] [address] PCP - General 01/09/10 documented as of this encounter
--- OUTSIDE RECORDS SUMMARY | 2024-11-15 09:14 | XMS_ITS | Encounter Summary ---
Author Organization [place] [address] Care Team Providers Care Assurance Officer Name Role Phone Luis Villasenor MD Unavailable [phone] Luis Villasenor MD Primary Care Provider Encounter Details Date Type Department Care Team (Late Contact Info) Description 11/11/2024 Orders Only SEP Sarah [address] [place] [phone] Amarilis Nolan, PROJECT CONTROLS SPECIALIST [address] [place] [address] Flank pain (Primary Dx); Blood loss; Dehydration Social History Tobacco Use Types Packs/Day Years [...] Nghia Aguirre CMA documented in this encounter Plan of Treatment Not on file documented as of this encounter Goals Goal Patient Goal Type Associated Problems Recent Progress Patient-Stated? Author Blood Pressure < 140/90 Blood Pressure 124/78(2024 9:10 AM EDT) No Grace Redmond CMA Maintain a healthy diet, exercise regularly and maintain an ideal body weight General Grace Avila CMA Stay Tobacco Free Lifestyle Grace Avila CMA documented as of this encounter Results * (ABNORMAL) CBC WITH [...] 3:44 PM EDT [facility] [place] Percent 8.3 % 11/14/2024 3:44 PM EDT [facility] Eos Percent 3.5 % 11/14/2024 3:44 PM EDT [facility] Baso Percent 0.6 % 11/14/2024 3:44 PM EDT [facility] Neut # 7.7(H) 1.6 - 6.1 x10(3)/mcL 11/14/2024 3:44 PM EDT [facility] Comment:Neutrophils equals s egs plus bands IMMGRAN# 0.1 0.0 - 0.1 x10(3)/[facility] 11/14/2024 3:44 PM EDT [facility] Comment:Automated count of m etamyelocytes, myelocytes and promyelocytes. An absolute IG <0.1 is reported as 0.0. Lymph # 1.0(L) 1.2 - 3.9 x10(3)/[facility] 11/14/2024 3:44 PM EDT [facility] [place] # 0.8 0.3 - 0.9 x10(3)/[facility] 11/14/2024 3:44 PM EDT [facility] Eos# 0.4 0.0 - 0.5 x10(3)/[facility] 11/14/2024 3:44 PM EDT [facility] Baso # 0.1 0.0 - 0.1 x10(3)/[facility] 11/14/2024 3:44 PM EDT [facility] Blood VENOUS BLOOD / Unknown Venipuncture / Unknown 11/14/2024 10:07 AM EDT 11/14/2024 10:07 AM EDT Amarilis Nolan PROJECT CONTROLS SPECIALIST HEMATOLOGY ORDERABLES Fin al Result [facility] [address] [facility] , [place] [address] * (ABNORMAL) COMPREHENSIVE METABOLIC PANEL (11/14/2024 10:07 AM EDT) Sodium 133(L) 136 - 145 mmol/L 11/14/2024 4:07 PM EDT [facility] Potassium 4.5 3.5 - 5.0 mmol/L 11/14/2024 4:07 PM EDT [facility] Chloride 94(L) 98 - 107 mmol/L 11/14/2024 4:07 PM EDT [facility] Total CO2 29 22 - 29 mmol/L 11/14/2024 4:07 PM EDT [facility] Anion Gap 10 7 - 16 mmol/L 11/14/2024 4:07 PM EDT [facility] Calcium 9.2 8.8 - 10.4 mg/dL 11/14/2024 4:07 PM EDT [facility] Glucose Lvl 122(H) 70 - 99 mg/dL 11/14/2024 4:07 PM EDT [facility] BUN 15 8 - 23 mg/dL 11/14/2024 4:07 PM EDT [facility] Creatinine 1.38(H) 0.51 - 1.30 mg/dL 11/14/2024 4:07 PM EDT [facility] Albumin 3.4 3.2 - 4.6 gm/dL 11/14/2024 4:07 PM EDT [facility] Total Protein 7.8 6.4 - 8.3 gm/dL 11/14/2024 4:07 PM EDT [facility] Bili Total 0.6 0.2 - 1.3 mg/dL 11/14/2024 4:07 PM EDT [facility] ALT <5 <=41 U/L 11/14/2024 4:07 PM EDT [facility] AST 23 <=40 U/L 11/14/2024 4:07 PM EDT [facility] Alk Phos 465(H) 36 - 123 U/L 11/14/2024 4:07 PM EDT [facility] eGFR (CKD-EPIcr 2020) 39(L) >=60 mL/min/1.7 3 m2 11/14/2024 4:07 PM EDT [facility] Comment:Estimated GFR was ca lculated using the CKD-EPIcr (2020) equation refit without race. The equation is recommended by the National Kidney Foundation - [place] [employer] of Nephrology Task Force. Blood VENOUS BLOOD / Unknown Venipuncture / Unknown 11/14/2024 10:07 AM EDT 11/14/2024 10:07 AM EDT us Amarilis Nolan PROJECT CONTROLS SPECIALIST CHEMISTRY ORDERABLES Kell orlando Result [facility] [address] [facility] , [address] [place], [place] [id number] documented in this encounter Visit Diagnoses Diagnosis Flank pain- Primary Abdominal pain, unspecified site Blood loss Hemorrhage, unspecified Dehydration documented in this encounter Additional Health Concerns Assessment Noted Time A fall risk assessment has been complete d for the patient 06/14/2024 9:03 AM EST documented as of this encounter Care Teams Assurance Officer Relationship Specialty Start Date End Date Luis Villasenor MD [address] [place] [phone] PCP - OBGYN 01/09/10 Luis Villasenor MD [address] [place] [phone] PCP - General 01/09/10 documented as of this encounter
--- OUTSIDE RECORDS SUMMARY | 2024-11-15 09:14 | XMS_ITS | Clinical Summary ---
Author Organization [facility] Address [address] [place] [address] Phone Care Team Providers Care Brake Coupler Dinkey Name Role Phone Luis Villasenor MD Unavailable [phone] Luis Villasenor MD Primary Care Provider Allergies Active Allergy Reactions Criticality Noted Date Comments Allopurinol Myalgia 07/04/2013 Tetracycline Rash Medications magnesium oxide (MAG-OX) 400 mg (241.3 mg magnesium) Oral Tablet Take 400 mg by mouth daily. as directed 10/27/19 24 Active fUROsemide (LASIX) 40 mg Oral TabletIndications:A cute on chronic heart failure with preserved ejection fraction (HCC) Take 1 Tablet by mouth daily. 90 Tablet 3 10/03/19 25 Active potassium chloride (KLOR-CON M) 20 mEq Oral Tab Sust.Rel. Particle/CrystalInd ications:Peripheral edema Take 1 Tablet by mouth daily. 90 Tablet 11/05/19 25 Active spironolactone (ALDACTONE) 25 mg Oral TabletIndications:P eripheral edema Take 1 Tablet by mouth daily. 90 Tablet 3 11/05/19 25 Active ondansetron (ZOFRAN) 4 mg Oral Tablet Take 4 mg by mouth every 6 hours. Active warfarin (COUMADIN) 5 mg Oral TabletIndications:p revent thromboembolism in chronic atrial fibrillation Thursday and Thursday Indications: treatment to prevent blood clots in chronic atrial fibrillation 11/15/19 25 Active warfarin (COUMADIN) 2.5 mg Oral TabletIndications:H istory of DVT (deep vein thrombosis),Paroxys mal atrial fibrillation (HCC) Tue, Wed, Thurs, Sat and Sun 11/15/19 25 Active HYDROmorphone (DILAUDID) 2 mg Oral Tablet Take 2 mg by mouth every 4 hours as needed. Active HYDROcodone-acetami nophen (NORCO) 10-325 mg Oral Tablet Take 1 Tablet by mouth every 6 hours as needed. Active Hospital, Clinic, or Other Facility Administered Medication Ordered Dose Route Frequency Start Date End Date Status cyanocobalamin injection 1,000 mcgIndications:Cobalamin deficiency 1000 mcg IM ONCE 11/14/2024 11/14/2024 Ended Active Problems Patient Care Coordination No te Formatting of this note migh t be different from the original. PATIENT REFUSES ALL IMMUNIZATIONS AND SCREENINGS. 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 04/2023, R hemicolectomy and anastomosis, pathology of invasive moderately differentiated adenocarcinoma. Metastatic adenocarcinoma in 2/10 lymph nodes. Wedge resection of the liver with metastatic adenocarcinoma consistent with colon primary. Discontinued treatment early 2024 per patient decision Managed by [facility] Oncology [facility] Hematology Assessment & Plan (10/02/2024 10:12 PM EDT): - has active disease - managed by Oncology -has stopped treatment 07/2024 Assessment & Plan (06/14/2024 9:41 PM EST): - has active disease - currently undergoing chemotherapy / immunotherapy - managed by Oncology, [facility] Oncology and Hematology Malignant tumor of ascending colon 06/14/2024 Overview (06/14/2024): CT scan 01/2023 with multiple masses of liver and ascending colon thickening. 04/2023, R hemicolectomy and anastomosis, pathology of invasive moderately differentiated adenocarcinoma. Metastatic adenocarcinoma in 2/10 lymph nodes. Wedge resection of the liver with metastatic adenocarcinoma consistent with colon primary. Continues with chemotherapy [id number]. Managed by [facility] Oncology and Hematology Assessment & Plan (10/02/2024 10:12 PM EDT): - has active disease - managed by Oncology -has stopped treatment 07/2024 Assessment & Plan (06/14/2024 9:41 PM EST): - has active disease - currently undergoing chemotherapy / immunotherapy - managed by Oncology, [facility] pilot (current) use of anticoagulants 2024 Overview (10/02/2024): Coumadin therapy, Afib Assessment & Plan (10/02/2024 10:12 PM EDT): On coumadin therapy, managed by the coumadin clinic at [facility], Dr. Youngblood, cardiology. Taking 5mg M// and 2.5mg other days Paroxysmal atrial fibrillation 06/14/2024 Overview (06/14/2024): Dr. Youngblood, cardiology, [facility] Assessment & Plan (10/02/2024 10:12 PM EDT): - co-managed with Cardiology and advised to follow-up as directed Assessment & Plan (06/15/2024 8:44 AM EST): Anticoagulation: Afib anticoagulation: - Coumadin (warfarin) due to patient preference / cost Rate or Rhythm Control Strategy: - advised to avoid alcohol, maintain an ideal body weight and participate in aerobic physical activity Compliance: - new coumadin start today Medication Management: - [id number] score considered in medication management decisions at today's visit - bleeding and fall risk re-evaluated during this encounter - medication management decisions took place at today's visit (see orders) - co-managed with Cardiology and advised to follow-up as directed -start Coumadin 5mg daily, INR today. Noncompliance 05/17/2021 Colonoscopy refused 01/28/2019 Mammogram declined 01/28/2019 Ascending aorta dilatation 10/28/2018 Overview (02/09/2020): --present on Echo 12/29/17 Followed by cardiology. Vertigo 10/27/2018 Overview (02/09/2020): Frequent. moslty at night. Meclizine helps some. Essential hypertension 03/30/2015 Overview (02/09/2020): Taking meds. Well controlled. Denies chest pain and SOB, swelling, dizziness or orthostatics. Stable on atenolol, lasix, continue the same. 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 DNR (do not resuscitate) 03/30/2015 Living will, counseling/discussion 03/30/2015 Overview (02/09/2020): Declines [facility] and [facility] hydration and nutrition via feeding tube or IV. Documentation requested. History of DVT (deep vein thrombosis) 07/04/2013 Overview (06/14/2024): Following hysterectomy and a/w PE 1990July 2023, extensive RLE DVT, resolved 09/2023 Assessment & Plan (06/14/2024 9:43 PM EST): Eliquis too expensive, patient requests coumadin therapy. Vitamin D deficiency 03/30/2013 Overview (12/04/2016): Stable on vit D Cont same. Degenerative joint disease 08/14/2011 Overview (01/28/2019): polyarthralgias feet, hands, knees mobic not helping as much. Insurance will not pay for celebrex. Naproxen and other nsaids do not help. Pain is mostly in knees and hands. Tramadol PRN. One prescription last 1-2 years. Iglesia reviewed as expected, see flowsheet. CSA: signed HB-1: to be collected at next visit. Irregular heart beat 07/31/2011 Overview (02/09/2020): Still has intermittent palpitations. Feels like her heart is beating fast. Does not last long. Past halter monitor without malignant arrhythmia. Has seen cardiology Hypothyroidism 07/31/2011 Assessment & Plan (05/17/2021 11:37 AM EST): Has been off synthroid for one year. Medication refilled Recommend she follow-up with PCP in 6 weeks to update medicare annual, labs. Glucose intolerance (impaired glucose tolerance) Overview (03/30/2015): Calorie restrict attempt 2720-2596 calories per day. Decrease starches like bread pasta and potatoes and simple sugars. Daily exercise. Resolved Problems Problem Noted Date Diagnosed Date Resolved Date Acute vertigo with vomiting and inability to stand 10/27/2018 01/28/2019 UTI (urinary tract infection) 10/27/2018 01/14/2019 Bradycardia 10/27/2018 02/09/2020 Chest discomfort 12/01/2017 01/28/2019 Morbid obesity 08/26/2017 06/14/2024 Overview (02/09/2020): Wt Readings from Last 3 Encounters: 02/09/20 245 lb (111.1 kg) 01/28/19 246 lb (111.6 kg) 01/14/19 244 lb (110.7 kg) Limited mobility secondary to arthritis. Encouraged diet management. BMI 42.23 Alcohol screening 12/04/2016 01/28/2019 Overview (12/04/2016): 12/04/16 Does not drink alcohol Screening for depression 12/04/2016 Overview (12/04/2016): 12/04/16 Depression Screening: In the past two weeks, how often have you felt down, depressed, or hopeless? None Have you felt little interest or pleasure in doing things? 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) (Primary Dx); History of DVT (deep vein thrombosis); Paroxysmal atrial fibrillation (HCC); Cobalamin deficiency; Flank pain; Dehydration; Blood loss 11/11/2024 Orders Only [address] [place] [address] Amarilis Nolan, MIGUEL ANGEL Flank pain (Primary Dx); Blood loss; Dehydration 11/04/2024 11:15 AM EDT Office Visit [address] [place] [address] Amarilis Nolan, MIGUEL ANGEL Diverticulitis of large intestine without perforation or abscess without bleeding (Primary Dx); Peripheral edema; Malignant tumor of ascending colon (HCC); 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) 11/01/[address] [place] [address] Luis Villasenor MD Other 10/28/2024 Results Follow-Up [address] [place] [address] Amarilis Nolan, MIGUEL ANGEL COMPREHENSIVE METABOLIC PANEL, URINE CULTURE (NO STAIN) 10/26/2024 11:00 AM EDT Clinical Support [address] [place] [address] Freya Coon Flank pain 10/26/2024 Orders Only [address] [place] [address] Amarilis Nolan, MIGUEL ANGEL Flank pain (Primary Dx) 10/26/[address] [place] [address] Luis Villasenor MD Relaying Information (Reporting new issues with pain. ///) 10/11/[address] [place] [address] Luis Villasenor MD Other (FYI- pt is wanting palliative care, home health asking if pcp would like to do this. 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); pilot (current) use of anticoagulants 09/22/[address] [place] [address] Luis Villasenor MD Orders (personal touch home care) 09/19/2024 Nurse Triage [address] [place] [address] Luis Villasenor MD Peripheral edema (Primary Dx) 09/13/2024 [place] [facility] [place] [facility] [address] [address] Cayedn Nagel MD Results 09/12/[address] [place] [phone] Amarilis Nolan APRN Other (Calling with INR results from ); Patient Returning Call (Check status of INR message); Follow Up ( requesting call back from office with 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 Please advise) from Last 3 Months Immunizations Immunization Administration Dates Next Due Pneumococcal Conjugate Vaccine 13 Valent 015 Pneumococcal Polysaccharide 23 Valent 12/04/2016 Tdap 01/20/2011 01/20/2021 Surgical History Surgery Date Site/Laterality Comments HYSTERECTOMY secondary to uterine fibroids TONGUE SURGERY benign tumor removed CARDIAC CATHETERIZATION CATARACT REMOVAL 07/09/2013 Left LEFT EYE CATARACT EXTRACTION WITH PHACOEMULSIFICATION AND INTRAOCULAR LENS; Surgeon: Keith Lynn MD; Location: [facility]; Service: Ophthalmology Medical devices from this surgery are in the Medical Devices section. CATARACT REMOVAL 08/03/2013 Eye/Right RIGHT EYE CATARACT EXTRACTION WITH PHACOEMULSIFICATION AND INTRAOCULAR LENS ; Surgeon: Keith Lynn MD; Location: [facility]; Service: Ophthalmology Medical devices from this surgery are in the Medical Devices section. Medical History Medical History Date Comments Deep vein thrombosis (HCC) in related at the time of hysterectomy Hypertension ASHD (arteriosclerotic heart disease) Arrhythmia Arthritis Fibroid, uterine BRANDY Glucose intolerance (impaire d glucose tolerance) Pulmonary embolism (HCC) 1990 at the time of hysterectomy Cardiac dysrhythmia, unspecified skips or adds a beat DVT (deep venous thrombosis) (HCC) several dvt's in rt leg after hysterectomy that went to lungs Osteoarthritis Gout Thyroid disease hypothyroid DNR (do not resuscitate) 2014 Living will, counseling/discussion 2015 Family History * Patient is adopted Relation Name Status Comments Father Mother Social History Tobacco Use Types Packs/Day Years [...] on file Sexual Orientation Not on file Obstetrics History Last Filed Vital Signs Vital Sign Reading [...] Mass Index 36.9 11/04/2024 11:10 AM EDT Plan of Treatment Health Maintenance Due Date Last Done Comments Wellness Exam Medicare 09/22/1948 COVID-19 Vaccine (#1) 09/22/1952 Kidney Health: eGFR 09/22/1957 Kidney Health: uACR 09/22/1957 Diabetic Eye Exam 09/22/1965 Zoster (1 of 2) 09/22/1966 Bone Density Screening 09/22/2012 DTaP/TDaP/Td (2 - Td or Tdap) 01/20/2021 01/20/2011 Lipids 02/08/2021 02/09/2020, 08/2018, 09/07/2017, Additional history exists RSV or 60+ (1 - 1-dose 75+ series) 09/22/2022 Hemoglobin A1c 03/10/2023 09/08/2022, 01/30, 02/02/2019, Additional history exists Influenza Vaccine (Season Ended) 2025 07/12/2015 (Declined) Hepatitis C Screening Completed 12/04/2016 Pneumococcal Vaccine 50+ Completed 12/04/2016, 03/03 Colon Cancer Screening Discontinued Colonoscopy Discontinued 03/03/2023 Cologuard Discontinued FIT Discontinued Hepatitis B Vaccine Aged Out No longe r eligible based on patient's age to complete this topic Meningococcal B Vaccine Aged Out No l onger eligible based on patient's age to complete this topic Sigmoidoscopy Discontinued Virtual Colonography Discontinued Goals Goal Patient Goal Type Associated Problems Recent Progress Patient-Stated? Author Blood Pressure < 140/90 Blood Pressure 124/78(2024 9:10 AM EDT) No Grace Redmond CMA Maintain a healthy diet, exercise regularly and maintain an ideal body weight General No Grace Rdemond CMA Stay Tobacco Free Lifestyle No Grace Redmond CMA Medical Devices Implanted Type Area Promotional Model Device Identifier Shelf Expiration Date Model / Serial / Lot Lens Intraocular 23.0 Diopter Acrysof Iq 13.0mm Length 6.0mm - [id number] Implanted:Qty: 1 on 07/09/2013 by Keith Lynn MD at [facility] Left: Eye [facility]:SURG 01/30/2018 [id number]. 0 / [id number] / Lens Intraocular 23.5 Diopter Acrysof Iq 13.0mm Length 6.0mm - [id number] Implanted:Qty: 1 on 08/03/2013 by Keith Lynn MD at [facility] Right: Eye [facility]:SURG 03/01/2018 [id number]. 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) CBC WITH DIFF Routine 11/14/2024 10:07 AM EDT Blood loss COMPREHENSIVE METABOLIC PANEL Routine 11/14/2024 10:07 AM EDT Flank pain Dehydration URINE CULTURE (NO STAIN) Routine 10/26/2024 11:17 AM EDT Flank pain SEP URINALYSIS POC Routine 10/26/2024 11 :14 AM EDT Flank pain COMPREHENSIVE METABOLIC PANEL Routine 10/26/2024 11:03 AM EDT Flank pain HEMOGLOBIN A1C Routine 09/08/2022 2:38 PM EDT Elevated glucose LIPID PANEL REFLEX Routine 02/09/2020 9: 38 AM EDT Essential hypertension HCV ANTIBODY SCREEN W/ REFLEX Routine 12/04/2016 11:16 AM EDT Encounter for hepatitis C screening test for low risk patient from Last 3 Months or Most Recently Relevant to Health Maintenance Results * (ABNORMAL) IRON+TIBC (11/14/2024 10:07 AM EDT) Iron 26(L) 30 - 160 mcg/dL 11/14/2024 4:07 PM EDT [facility] Transferrin 153(L) 200 - 360 mg/dL 11/14/2024 4:07 PM EDT [facility] [address], [place] Transferrin Saturation 12(L) 20 - 50 % 11/14/2024 4:07 PM EDT [facility] TIBC 214(L) 250 - 400 mcg/dL 11/14/2024 4:07 PM EDT [facility] Blood VENOUS BLOOD / Unknown Venipuncture / Unknown 11/14/2024 10:07 AM EDT 11/14/2024 10:07 AM EDT Amarilis Nolan AIRVEYOR OPERATOR CHEMISTRY ORDERABLES Kell l Result [facility] [address] [facility] , [place] [address] * VITAMIN B12/ FOLIC ACID (11/14/2024 10:07 AM EDT) Vitamin B12 801 232 - 1,245 pg/mL 11/14/2024 4:02 PM EDT [facility] Folate 9.89 >=4.80 ng/mL 11/14/2024 4:02 PM EDT [facility] Blood VENOUS BLOOD / Unknown Venipuncture / Unknown 11/14/2024 10:07 AM EDT 11/14/2024 10:07 AM EDT Narrative [facility], [facility] - 11/14/2024 4:02 PM EDT Ingestion of rocio doses of biotin (>5 mg/day) taken within 8 hours of drawing blood sample can interfere with this immunoassay test. us Amarilis Nolan APRN CHEMISTRY ORDERABLES Kell orlando Result [facility] [address] [facility] , [place] [address] * (ABNORMAL) CBC WITH DIFF (11/14/2024 10:07 AM EDT) WBC 10.0 3.7 - 10.3 x10(3)/mcL 11/14/2024 3:44 PM EDT [facility] RBC 3.50(L) 3.90 - 5.20 x10(6)/mcL 11/14/2024 3:44 PM EDT [facility] Hgb 9.9(L) 11.2 - 15.7 g/dL 11/14/2024 3:44 PM EDT [facility] Hct 32.6(L) 34.0 - 45.0 % 11/14/2024 3:44 PM EDT [facility] MCV 93.1 80.0 - 100.0 fL 11/14/2024 3:44 PM EDT [facility] MCH 28.3 26.0 - 34.0 pg 11/14/2024 3:44 PM EDT [facility] MCHC 30.4(L) 30.7 - 35.5 g/dL 11/14/2024 3:44 PM EDT [facility] RDW 14.8 <=14.9 % 11/14/2024 3:44 PM EDT [facility] Platelet 375(H) 155 - 369 x10(3)/mcL 11/14/2024 3:44 PM EDT [facility] MPV 9.6 8.8 - 12.5 fL 11/14/2024 3:44 PM EDT [facility] Neut Percent 77.1 % 11/14/2024 3:44 PM EDT [facility] Comment:Neutrophils equals s egs plus bands Imm Gran% 0.6 % 11/14/2024 3:44 PM EDT [facility] Comment:Automated count of m etamyelocytes, myelocytes and promyelocytes. Lymph Percent 9.9 % 11/14/2024 3:44 PM EDT [facility] Dukes Percent 8.3 % 11/14/2024 3:44 PM EDT [facility] Eos Percent 3.5 % 11/14/2024 3:44 PM EDT [facility] Baso Percent 0.6 % 11/14/2024 3:44 PM EDT [facility] Neut # 7.7(H) 1.6 - 6.1 x10(3)/[facility] 11/14/2024 3:44 PM EDT [facility] Comment:Neutrophils equals s egs plus bands IMMGRAN# 0.1 0.0 - 0.1 x10(3)/[facility] 11/14/2024 3:44 PM EDT [facility] Comment:Automated count of m etamyelocytes, myelocytes and promyelocytes. An absolute IG <0.1 is reported as 0.0. Lymph # 1.0(L) 1.2 - 3.9 x10(3)/[facility] 11/14/2024 3:44 PM EDT [facility] Dukes # 0.8 0.3 - 0.9 x10(3)/[facility] 11/14/2024 3:44 PM EDT [facility] Eos# 0.4 0.0 - 0.5 x10(3)/[facility] 11/14/2024 3:44 PM EDT [facility] Baso # 0.1 0.0 - 0.1 x10(3)/[facility] 11/14/2024 3:44 PM EDT [facility] Blood VENOUS BLOOD / Unknown Venipuncture / Unknown 11/14/2024 10:07 AM EDT 11/14/2024 10:07 AM EDT Amarilis Nolan APRN HEMATOLOGY ORDERABLES Fin al Result Performing Organization Address [facility] Co de Phone Number [facility] [employer] [facility] [address] , [place] [address] * (ABNORMAL) FERRITIN (11/14/2024 10:07 AM EDT) Ferritin 728(H) 30 - 150 ng/mL 11/14/2024 4:07 PM EDT [facility] Comment:The lower threshold of 30 is not statistically defined, nor internally validated. The threshold has been updated to more closely reflect a physiologic basis. Susanna Z, et al. Physiologically based serum ferritin thresholds for iron deficiency in children and non- women: a [place] National Health and Nutrition Examination Surveys (NHANES) serial cross-sectional study. Lancet Haematol 2020;8:e572-82. Blood VENOUS BLOOD / Unknown Venipuncture / Unknown 11/14/2024 10:07 AM EDT 11/14/2024 10:07 AM EDT Narrative [facility], [facility] - 11/14/2024 4:07 PM EDT Ingestion of rocio doses of biotin (>5 mg/day) taken within 8 hours of drawing blood sample can interfere with this immunoassay test. Amarilis Nolan APRN CHEMISTRY ORDERABLES Kell l Result Performing Organization Address [facility] Co de Phone Number [facility] [employer] [address] , [place] [address] * (ABNORMAL) COMPREHENSIVE METABOLIC PANEL (11/14/2024 10:07 AM EDT) Only the most recent of2 resultswithin the time period is included. Sodium 133(L) 136 - 145 mmol/L 11/14/2024 4:07 PM EDT [facility] [address], [facility] Potassium 4.5 3.5 - 5.0 mmol/L 11/14/2024 4:07 PM EDT [facility] [address], [place] Chloride 94(L) 98 - 107 mmol/L 11/14/2024 4:07 PM EDT [facility] [address], [facility] Total CO2 29 22 - 29 mmol/L 11/14/2024 4:07 PM EDT [facility] Anion Gap 10 7 - 16 mmol/L 11/14/2024 4:07 PM EDT [facility] Calcium 9.2 8.8 - 10.4 mg/dL 11/14/2024 4:07 PM EDT [facility] Glucose Lvl 122(H) 70 - 99 mg/dL 11/14/2024 4:07 PM EDT [facility] BUN 15 8 - 23 mg/dL 11/14/2024 4:07 PM EDT [facility] Creatinine 1.38(H) 0.51 - 1.30 mg/dL 11/14/2024 4:07 PM EDT [facility] Albumin 3.4 3.2 - 4.6 gm/dL 11/14/2024 4:07 PM EDT [facility] Total Protein 7.8 6.4 - 8.3 gm/dL 11/14/2024 4:07 PM EDT [facility] Bili Total 0.6 0.2 - 1.3 mg/dL 11/14/2024 4:07 PM EDT [facility] ALT <5 <=41 U/L 11/14/2024 4:07 PM EDT [facility] AST 23 <=40 U/L 11/14/2024 4:07 PM EDT [facility] Alk Phos 465(H) 36 - 123 U/L 11/14/2024 4:07 PM EDT [facility] eGFR (CKD-EPIcr 2020) 39(L) >=60 mL/min/1.7 3 m2 11/14/2024 4:07 PM EDT [facility] Comment:Estimated GFR was ca lculated using the CKD-EPIcr (2020) equation refit without race. The equation is recommended by the National Kidney Foundation - [place] Society of Nephrology Task Force. Blood VENOUS BLOOD / Unknown Venipuncture / Unknown 11/14/2024 10:07 AM EDT 11/14/2024 10:07 AM EDT us Amarilis Nolan AIRVEYOR OPERATOR CHEMISTRY ORDERABLES Kell orlando Result [facility] [address] [facility] , [place] [address] * URINE CULTURE (NO STAIN) (10/26/2024 11:17 AM EDT) Culture Multiple bacterial species isolated from urine consistent with urogenital commensal organisms. 10/27/2024 10:23 PM EDT [facility] Urine STRUCTURE OF URINARY TRACT PROPER / Unknown 10/26/2024 11:17 AM EDT 10/26/2024 11:17 AM EDT Amarilis Nolan APRN MICROBIOLOGY - GENERAL OR DERABLES Final Result [address] , [place] [address] * (ABNORMAL) SEP URINALYSIS POC [...] Est POC Negative Negative 11:17 AM EDT TODD MCPHERSONLER Urine STRUCTURE OF URINARY TRACT PROPER / Unknown 10/26/2024 11:14 AM EDT 10/26/2024 11:17 AM EDT us Lab Test POINT OF CARE TEST ORDERABLES Fi nal Result Performing Organization Address [facility]/ZIP Co de Phone Number [facility] [place] [address] [place] [address] * (ABNORMAL) HEMOGLOBIN A1C (09/08/2022 2:38 PM EDT) Hgb A1C 7.3(H) 4.2 - 5.6 % 09/08/2022 8:16 PM EDT [facility] Est. Avg Glucose 163 mg/dL 09/08/2022 8:16 PM EDT [facility] Blood VENOUS BLOOD / Unknown Venipuncture / Unknown 09/08/2022 2:38 PM EDT 09/08/2022 2:38 PM EDT Narrative [facility] - 09/08/2022 8:16 PM EDT REFERENCE RANGE: Normal: 4.0-5.6% Pre-diabetes: 5.7-6.4% Provisional diagnosis of diabetes: >6.4% Hgb F>10% and anything which shortens red cell survival, such as hemolytic anemia, or unstable hemoglobin variants such as HbSS, HbSC, or HbCC, will lower the HbA1c value associated with a given level of glycemic control. us Luis Villasenor MD CHEMISTRY ORDERABLES Final Result Performing Organization Address City/[facility]/ZIP Co de Phone Number [facility] [address] [facility] , [place] [address] * LIPID PANEL REFLEX (02/09/2020 9:38 AM EDT) Cholesterol 157 <200 mg/dL 02/09/2020 4:17 PM EDT [facility] Comment: < 200 Desirable 200 - 239 Borderline High >= 240 High Triglyceride 85 <150 mg/dL 02/09/2020 4:17 PM EDT [email or web address] Comment: < 150 Normal 150 - 199 Borderline High 200 - 499 High >= 500 Very High HDL 41 >=40 mg/dL 02/09/2020 4:17 PM EDT [email or web address] Comment: > 60 Optimal 40 - 60 Acceptable < 40 Low LDL Calculated 99 <100 mg/dL 02/09/2020 4:17 PM EDT [email or web address] Non-HDL-C Calculated 116 <=129 mg/dL 02/09/2020 4:17 PM EDT [email or web address] Comment: <130 Desirable 130-159 Above Desirable 160-189 Borderline High 190-219 High >= 220 Very High Fasting Specimen? Yes None 020 4:17 PM EDT [facility] Blood VENOUS BLOOD / Unknown Venipuncture / Unknown 02/09/2020 9:38 AM EDT 02/09/2020 9:42 AM EDT Luis Villasenor MD CHEMISTRY ORDERABLES Final Result [facility] [address] [facility], [place] [address] * HEPATITIS C ANTIBODY - SCREENING (12/04/2016 11:16 AM EDT) Hep C Ab Negative Negative [facility] Blood specimen (specimen) UPPER LIMB STRUCTURE / Unknown 12/04/2016 11:16 AM EDT 12/04/2016 4:52 PM EDT Luis Villasenor MD HEMATOLOGY ORDERABLES Final Result [facility] [address] [place] [address] from Last 3 Months or Most Recently Relevant to Health Maintenance Insurance MEDICARE [place] PART A AND B Member Subscriber Plan / Payer (Ef fective 2012-Present) Name:Vicky Roblero Member ID:[id number] Relation to Subscriber:Self Name:Vicky Roblero Subscriber ID:[id number] Payer ID:Not on file Group ID:Not on file Type:Not on file Address: [address] [id number] [employer] [facility] MEDICARE [place] PART A AND B [employer] [place] [address] [employer] Advance Directives For more information, please contact: [phone] * Full Code (Latest Code Status on File) Date Activated Date Inactivated Comments 10/28/2018 11:51 AM 10/28/2018 9:26 PM Care Teams Brake Coupler Dinkey Relationship Specialty Start Date End Date Luis Villasenor MD [address] [place] [phone] PCP - OBGYN 01/09/10 Luis Villasenor MD [address] [place] [phone] PCP - General 01/09/10
--- OUTSIDE RECORDS SUMMARY | 2024-11-15 09:14 | XMS_ITS | Encounter Summary ---
Author Organization [place] [address] Care Team Providers Care Insurance Associate Name Role Phone Luis Villasenor MD Unavailable [phone] Luis Villasenor MD Primary Care Provider Encounter Details Date Type Department Care Team (Late Contact Info) Description 10/26/2024 Orders Only SEP Sarah [address] [place] [id number] Amarilis Nolan, REGIONAL ENGAGEMENT CONSULTANT [address] [place] [address] Flank pain (Primary Dx) Social History Tobacco Use Types [...] Nghia Redmond CMA documented in this encounter Plan of [...] documented as of this encounter Results * URINE CULTURE (NO STAIN) (10/26/2024 11:17 AM EDT) Culture Multiple bacterial species isolated from urine consistent with urogenital commensal organisms. 10/27/2024 10:23 PM EDT [facility] Urine STRUCTURE OF URINARY TRACT PROPER / Unknown 10/26/2024 11:17 AM EDT 10/26/2024 11:17 AM EDT Amarilis Nolan REGIONAL ENGAGEMENT CONSULTANT MICROBIOLOGY - GENERAL OR DERABLES Final Result [facility] [address] [facility] , [place] [address] * (ABNORMAL) COMPREHENSIVE METABOLIC PANEL (10/26/2024 11:03 [...] 4:28 PM EDT [facility] Albumin 3.5 3.2 - 4.6 gm/dL 10/26/2024 4:28 PM EDT [facility] Total Protein 7.4 6.4 - 8.3 gm/dL 10/26/2024 4:28 PM EDT [facility] Bili Total 0.7 0.2 - 1.3 mg/dL 10/26/2024 4:28 PM EDT [facility] ALT 11 <=41 U/L 10/26/2024 4:28 PM EDT [facility] AST 28 <=40 U/L 10/26/2024 4:28 PM EDT [facility] Alk Phos 259(H) 36 - 123 U/L 10/26/2024 4:28 PM EDT [facility] eGFR (CKD-EPIcr 2020) 43(L) >=60 mL/min/1.7 3 m2 10/26/2024 4:28 PM EDT [facility] Comment:Estimated GFR was ca lculated using the CKD-EPIcr (2020) equation refit without race. The equation is recommended by the National Kidney Foundation - [place] [employer] of Nephrology Task Force. Blood VENOUS BLOOD / Unknown Venipuncture / Unknown 10/26/2024 11:03 AM EDT 10/26/2024 11:03 AM EDT Amarilis Nolan REGIONAL ENGAGEMENT CONSULTANT CHEMISTRY ORDERABLES Kell orlando Result [facility] [address] [facility] , [place] [address] documented in this encounter Visit Diagnoses Diagnosis Flank pain- Primary Abdominal pain, unspecified site documented in this encounter Additional Health Concerns Assessment Noted Time A fall risk assessment has been complete d for the patient 06/14/2024 9:03 AM EST documented as of this encounter Care Teams Insurance Associate Relationship Specialty Start Date End Date Luis Villasenor MD [address] [place] [phone] PCP - OBGYN 01/09/10 Luis Villasenor MD [address] [place] [phone] PCP - General 01/09/10 documented as of this encounter
--- OUTSIDE RECORDS SUMMARY | 2024-11-15 09:14 | XMS_ITS | Encounter Summary ---
Author Organization [place] [address] Care Team Providers Care Lining Mechanic Name Role Phone Luis Villasenor MD Unavailable [phone] Luis Villasenor MD Primary Care Provider [phone] Reason for Visit * Reason Onset Date Comments Other 10/11/2024 FYI- pt is wanti palliative care, home health asking if pcp would like to do this. Encounter Details Date Type Department Care Team (Late st Contact Info) Description 10/11/2024 Telephone SEP Sarah [address] [place] [address] Luis Villasenor MD [address] [address] Other (FYI- pt is wanting palliative care, home health asking if pcp would like to do this. ) Social History Tobacco Use Types Packs/Day [...] Nghia Redmond CMA documented in this encounter Miscellaneous Notes * Telephone Encounter - Pau Gray RMA - 10/12/2024 9:56 AM EDT Spoke with Yarelis and she is aware. * Telephone Encounter - Natividad Choe MA - 10/11/2024 11:31 AM EDT I know this is a Dr. Villasenor patient, but it looks like she has not seen him in 2 years and has been seeing you. Are you okay with this? * Telephone Encounter - Elie Moreno - 10/11/2024 11:27 AM EDT Select the most appropriate reason for this telephone message: Other Who is calling (name & relationship to patient if not the patient): [facility] home health- Yarelis What is needed OR why are they calling: FYI- pt is wanting palliative care, home health asking if pcp would like to do this. 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
--- OUTSIDE RECORDS SUMMARY | 2024-11-15 09:14 | XMS_ITS | Encounter Summary ---
Author Organization [place] [address] Care Team Providers Care Wash House Worker Name Role Phone Luis Villasenor MD Unavailable [phone] Luis Villasenor MD Primary Care Provider [phone] Reason for Visit * Reason Onset Date Comments Other 09/12/2024 Calling with INR results from Patient Returning Call 09/12/2024 Check sta tus of INR message Follow Up 09/12/2024 requesting ca ll back from office with patient's shift coordinator 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 Please advise Encounter Details Date Type Department Care Team (Late st Contact Info) Description 09/12/2024 Telephone SEP [facility] [address] [place] [address] Amarilis Nolan, INTERMEDIATE TEACHER [address] [facility] [place] [address] Other (Calling with INR results from ); Patient Returning Call (Check status of INR message); Follow Up ( requesting call back from office with patient's shift coordinator 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 Please advise) Social History Tobacco Use Types Packs/Day Years [...] 02/09/2020 8:59 AM BASILT Nghia Redmond CMA * Does this person [...] Telephone Encounter - Pau Gray RMA - 09/16/2024 3:15 PM EDT Daughter aware * Telephone Encounter - Pau Gray RMA - 09/16/2024 10:33 AM EDT I spoke with her Daughter and she is being managed by Dr Youngblood. * Telephone Encounter - Natividad Choe MA - 09/14/2024 4:14 PM EDT Looks like you all seen her 3 months ago, but kayla is listed as pcp. Wasn't sure who to send it to. * Telephone Encounter - Hanna Scott MA - 09/14/2024 3:27 PM EDT Select the most appropriate reason for this telephone message: Other Who is calling (name & relationship to patient if not the patient): Margarita nurse from [facility] What is needed OR why are they calling: Inform PCP that Dr. Nagel is no longer following pt. Lois is needing to know who is going to follow pt's INR & get information on dosing. When is this needed by: sweetie Where does this information need to go: PCP Return Method of Communication: Phone Call Additional information:N/A * Telephone Encounter - Nayeli Urbina RMA - 09/13/2024 2:15 PM EDT Information given * Telephone Encounter - Mary Gonzalez - 09/13/2024 1:58 PM EDT Select the most appropriate reason for this telephone message: Follow Up Follow Up [facility] (include facility and caller's name) What is the caller following up on (make sure to reference any prior documentation/encounter):Called to f/u on the INR testing- HH asking if they can get the cardiology information on who to report this info to. Call center unable to give them this information out per HIPPA. Please call her back with details if appropriate. Further follow-up needed?:Yes Return Method of Communication:Phone call Additional Information: Please advise. * Telephone Encounter - Pau Gray RMA - 09/13/2024 1:02 PM EDT Cardiology is managing her INR * Telephone Encounter - Hanna Scott MA - 09/13/2024 10:12 AM EDT Select the most appropriate reason for this telephone message: Patient Returning Call Reason for call: Daughter, Thea, called to check status of yesterday's message about INR. Information relayed to patient: Waiting for response. Will send another message. Patient has additional questions: No Further follow-up needed? yes Return Method of Communication: Phone Call [phone] Additional Information: N/A * Telephone Encounter - Cecilia Pillai RMA - 09/12/2024 10:36 AM EDT Select the most appropriate reason for this telephone message: Other Who is calling (name & relationship to patient if not the patient): [facility] What is needed OR why are they calling: Result of INR is 1.3. Pt is taking 1 mg of Warfarin 1 mg every day (1 mg not on Current medication list.) When is this needed by: today Where does this information need to go: PCP Return Method of Communication: Phone Call Additional information:Pt and HH stated that she is going to being doing it at Home now documented in this encounter Plan of Treatment [...] documented as of this encounter Care Teams Wash House Worker Relationship Specialty Start Date End Date Luis Villasenor MD [address] [facility] [place] [phone] PCP - OBGYN 01/09/10 Luis Villasenor MD [address] [facility] [place] [phone] PCP - General 01/09/10 documented as of this encounter
--- OUTSIDE RECORDS SUMMARY | 2024-11-15 09:14 | XMS_ITS | Encounter Summary ---
Author Organization [place] [address] Care Team Providers Care Web Sizer Name Role Phone Luis Villasenor MD Unavailable [phone] Luis Villasenor MD Primary Care Provider Reason for Visit * Reason Onset Date Comments Orders 10/07/2024 VO for OT Encounter Details Date Type Department Care Team (Late Contact Info) Description 10/07/2024 Telephone SEP Sarah [facility] [address] [address] Luis Villasenor MD [address] [facility] [place] [address] Orders (VO for OT) Social History Tobacco Use Types Packs/Day Years [...] Entry Date Author No 02/09/2020 8:59 AM EDNghia Paris CMA documented in this encounter Miscellaneous Notes * Telephone Encounter - Paloma Galeas MA - 10/07/2024 2:45 PM EDT Verbal orders given. * Telephone Encounter - Sury Denny, Clerical Staff - 10/07/2024 2:39 PM EDT Select the most appropriate reason for this telephone message: Order Request Who is requesting the Order(s): Home Health Facility: [facility] (Caller name: Mónica MORA) What Orders are being requested: Occupational Therapy Reason Orders are Needed (Diagnosis): Long Cancer Is a verbal order being requested: Yes If non-[facility], where should the order be faxed (include fax number): NA Frequency: 2 x wk for 4 wks Return Method of Communication: Phone Call Additional Information: please advise caller - thank you documented in this encounter Plan of [...] documented as of this encounter Care Teams Web Sizer Relationship Specialty Start Date End Date Luis Villasenor MD [address] [place] [phone] PCP - OBGYN 01/09/10 Luis Villasenor MD [address] [place] [phone] PCP - General 01/09/10 documented as of this encounter
--- OUTSIDE RECORDS SUMMARY | 2024-11-15 09:14 | XMS_ITS | Continuity of Care Document ---
Author Organization [facility] Address [address] [place] [address] Care Team Providers Care Command Post Superintendent Name Role Phone ADDY GONZALES General Surgeon CARLOS A COATS Primary Care Provider VERONIKA RIVER House Supervisor [phone] Assessment No assessment recorded. Plan of Treatment Reminders Order Date Submit Date Provider Last Modified By Organization Details Last Modified Time Details Appointments OV EST 30 2024 11:00A M Hanna Snider PA-C Not available Not available Not available OV EST 30 2024 11:00A M Hanna Snider PA-C Not available Not available Not available Lab carcinoem bryonic Ag, quant, serum or plasma 2024 025 [email or web address] [facility], [address] [place], [address], 11/08/2024 10:04:49 CMP, serum or plasma 2024 025 [email or web address] [facility], [address] [place], [address], 11/01/2024 15:54:32 CBC w/ diff 2024 025 [email or web address] [facility], [address] [place], [address], 11/08/2024 10:04:49 Referral None recorded. Procedures None recorded. Surgeries None recorded. Imaging None recorded. Medication Orders nystatin 100,000 unit/gram topical powder 2024 025 [id number], [id number] [place], [address], 11/01/2024 13:56:59 Patient TargetsNo targets recorded. Patient InstructionsNo instructions recorded. Reason for Referral None Reported. Problems Name Problem SNOMED Code Status Onset Date Resolution Date Notes Provider Name and Address Organization Details Recorded Time Headache 86386085 Active 2024 Christine yusuf, [place] - [facility] & [place] 5 10:27:12 Metastatic malignant neoplasm to liver 59490672 Active [address], [facility] [address] , [place] - [facility] [place] 3 14:27:25 Mass of colon 454932312 Active [address], [place], [address] , [place] - [facility] & [place] 3 14:27:30 Anemia 390168335 [facility] [address] [facility] [facility] [facility] [address] , [place] - [facility] [place] 3 14:27:36 Nausea and vomiting 14325977 Active [address] [place], [address] , [place] [facility] & [place] 3 14:27:46 Unintentional weight loss 989861098 Active [address] [facility] [address] , [place] - [facility] & [place] 3 16:13:07 Night sweats 61363595 Active [address] [place], [address] , [facility] & [place] 3 16:13:12 Problem Notes Documentation Provider Name and Address Organization Details Recorded Time Oncology Patient Navigator : ONN met with pt at [facility] with medical oncology. Pt states she is doing well at this time. Hospice consult was briefly discussed and pt declined at this time. ONN encouraged pt to reach out may any needs/concerns arise. [facility] [place] 11/01/2024 13:52:48 Procedures Surgical History Date Name Laterality Status Provider Name and Address Organization Details Recorded Time 04/29/20 23 Venipuncture completed Hanna Snider PA-C [address] [facility], [place], [address], [facility] & [place] 04/27/2023 15:05:29 04/15/20 23 Venipuncture completed Stephanie Maravlila [facility] & [place] 04/15/2023 15:24:55 hysterectomy completed Laurel Samuels [facility] & [place] 03/11/2023 15:30:22 extraction of cataract completed Laurel Arvind [facility] & [place] 03/11/2023 15:30:36 excision of colon completed Loree Tadeo [facility] & [place] 04/21/2023 11:32:07 Imaging Results None recorded. Procedure Notes None recorded. Medical Equipment None Reported. Allergies Allergen ID Allergen Name Allergen Category Reaction Reaction Severity Criticality Documentation Date Start Date Code Code System Note Provider Name and Address Organization Details Recorded Time 76216 tetracycl ine medicatio n hives Not available high 02/19/2023 31622 RxNorm Brandy Ra[facility]em [facility] [place] 14:03:33 Medications Name Sig Start Date Stop [...] every day by oral route as needed. 11/01 completed Not Available Not Available Not Available trazodone 50 mg tablet TAKE 1 TABLET BY MOUTH EVERY DAY 08/01 completed Not Available Not Available Not Available azithromyci n 250 mg tablet TAKE ONE TABLET BY MOUTH EVERY DAY FOR FOUR DAYS -- FINISH ALL MEDICINE -- start ON DAY 2 of therapy 11/01 completed Not Available Not Available Not Available [...] Not Available Not Available No t Available spironolact one 25 mg tablet TAKE 1 TABLET BY [...] Not Available Not Available No t Available potassium chloride ER 20 mEq tablet,exte nded release(par t/cryst) TAKE 1 TABLET BY MOUTH EVERY DAY active Not Available Not Available No t Available famotidine 20 mg tablet TAKE 1 TABLET BY MOUTH 2 TIMES A DAY 11/01 completed Not Available Not Available Not Available magnesium oxide 400 mg (241.3 mg [...] TAKE 1 TABLET BY MOUTH EVERY DAY 11/01 completed Not Available Not Available Not Available [...] MOUTH EVERY 3 TO 4 HOURS NEEDED 11/01 completed Not Available Not Available Not Available ondansetron 4 mg disintegrat ing tablet DISSOLVE 2 TABLETS BY MOUTH THREE TIMES DAILY NEEDED FOR NAUSEA AND VOMITING active Not Available Not Available No t Available cefdinir 300 mg capsule TAKE 1 CAPSULE BY MOUTH 2 TIMES A DAY 06/02 completed Not Available Not Available Not Available amoxicillin 875 mg-potassiu m clavulanate 125 mg tablet TAKE 1 TABLET BY MOUTH 2 TIMES A DAY FOR 5 DAYS active Not Available Not Available No t Available amoxicillin 500 mg-potassiu m clavulanate 125 [...] Organization Details Last Updated DateTime 162.56 cm 33.5 kg/m2 43414.5 1 g 97.6 [degF] 98 % 98 % 75 /min 185 mm[Hg] 79 mm[Hg] Laurel Samuels [facility] [place] 13:16:39 Social History Question Answer Notes LastModified by Files[employer] Details LastModified Time Tobacco Smoking Status Never Smoker Brandy yusuf, [facility] & [place] 02/19/2023 14:02:59 What Is Your Level Of Caffeine Consumption? None [email or web address] Information not available 02/19/2023 What Was The Date Of Your Most Recent Tobacco Screening? 11/23/2023 Information not available 11/23/2023 Has Tobacco Cessation Counseling Been Provided? No [email or web address] Information not available 07/13/2023 Sex: Unknown Functional Status Question Answer Note LastModified by Organizat ion Details LastModified Time Do you use any illicit or recreational drugs? No [email or web address] Information not available 02/19/2023 Do you or have you ever used any other forms of tobacco or nicotine? No [email or web address] Information not available 02/19/2023 What is your level of alcohol consumption? None [email or web address] Information not available 02/19/2023 Mental Status None recorded. Family History Nothing Reported. Medical History No medical history recorded. Gynecological HistoryNo gynecological history recorded. Obstetrics History GPAL:G 0 P 0 0 0 0 Immunizations Vaccine Type Date Status Note Provider Nam e and Address Organization Details Recorded Time pneumococcal polysaccharide PPV23 7 completed Stephanie Maravilla [facility] & [place] 12/21/2023 09:56:34 Past Encounters Encounter ID Performer Location Encounter Start Date Encounter Closed Date Diagnosis/Indication Diagnosis SNOMED-CT Code Diagnosis ICD10 Code Diagnosis Note [id number] Hanna Snider PA-C [facility] [address] [place] [address] 11/01/2024 13:00:10 11/01/2024 13:35:08 Antineoplastic chemotherapy regimen 501886240 Z51.11 Week 1 5FU Leucovorin Vectibix on [...] Leucovorin with irinotecan on August 25, 2024. Malignant tumor of ascending colon 351120375 C18.2 CT scan of the abdomen and [...] 8.2 hematocrit 29.0. MCV 67.9. Platelet count 583498. Normal cell differenti al. Low serum folate [...] study published in September 2022 in the [place] [facility] of combined Avastin therapy with Lonsurf. Phase 3 trial with median overall survival of 10.8 months in combinatio n therapy verses 7.5 months Lonsurf alone. Progressio n-free survival 5.6 months versus 2.4 months in Lonsurf alone therapy. Patient She has not want to proceed with any chemothera py. She does not want to do any treatment for her malignancy . Metastatic malignant neoplasm to liver 70756243 C78.7 CT scan of the abdomen and [...] mass. Findings concerning for metastatic colon cancer. CT of the abdomen pelvis with evidence of diverticul itis and progressiv e hepatic metastatic disease with enlarging periportal adenopathy . She has not want any treatment for her malignancy . Nausea 721521843 R11.0 As needed Zofran and Phenergan prescribed [...] ons. Pain due t o neoplastic disease 2968463777 9102 G89.3 Abdominal pain has improved and pain is controlled with current pain medication s. Anemia 069769283 D64.9 Right-side d colon mass concerning for malignancy . Will assess for any signs of iron deficiency . Hemoglobin previously 8.0. Concern for blood loss from colon mass. Patient reports dark stools. Labs on August 10, 2024 with hemoglobin slightly low at 11.9. She is receiving infusional iron as needed. Adopted 842820403 Z62.89 8 Patient is adopted and discussed hereditary gene panel. Patient does have family history of her son having bladder cancer. Jose Martin hereditary panel sent Hypokalemia 77333861 E87 .6 Currently taking for potassium 20 mEq daily. Will follow up labs. 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 [...] reports depression has improved. Atopic conjunctivitis 23 4774322 H10.12 Conjunctiv itis due to Vectibix. This has improved. Iron defic iency anemia 68341499 D50.9 Receiving infusional iron as needed. Will continue to monitor. Insomnia 499819120 G47.0 0 Patient has had difficulty sleeping for most of her life. She has tried multiple medication s without relief. She is tried Mirtazapin e and lorazepam without improvemen t of insomnia. Discussed trying trazodone instead. Restless legs 59569971 G 25.81 Patient taking Requip for restless legs. Generalized rash 6690785 06 R21 Rash due to Vectibix. This has improved. Atrial fibrillation 4943 6004 I48.91 Patient has been diagnosed with congestive heart failure and atrial fibrillati on. She has been started on Coumadin. She is following with the Coumadin clinic at [facility]. Congestive heart failure 96525889 I50.9 Patient has been diagnosed with congestive heart failure. She has started lasix and is following with a cardiologi st. Cachexia 153210834 R64 Patient has had decreased appetite and weight loss. She is drinking nutritiona l supplement s. Discussed appetite stimulant. Patient previously refused. She has started on Megace. She does not like the taste of Megace. Discussed Megace tablets instead of liquid but patient declines at this time. Will continue to monitor History of deep vein thrombosis 324191612 Z86.548 Patient developed right lower extremity pain and edema.Veno us duplex on May 28, 2023 with evidence of deep vein thrombosis . Started on Eliquis 5 mg 1 tab p.o. b.i.d.. Did not start with Eliquis starter pack due to recent bleeding. Patient had a DVT and a PE in 1990 after her hysterecto my.Clot resolution on repeat venous duplex. Drug therapy finding 309 305449 Z79.01 She continues on Coumadin due to a fib. She is following with the Coumadin clinic at [facility]. Candidiasis of skin 4988 3006 B37.2 Patient has intermitte nt rash consistent with candidiasi s under her breasts folds. Will send prescripti on for nystain powder to use as needed. Health Concerns Section Related Observation LastModified by Organization Detai ls LastModified Time None Recorded Concern Status LastModified by Organization Details LastModified Time None Recorded Payers Encounter Date Sequence Insurance Name Policy Number Policy Bell Covered Member ID Bell Member ID Guarantor Name 11/01/2024 1 [place]ICARE[place]ARE[place] Vicky Roblero [id number] Vicky Roblero 11/01/2024 2 [employer] (MEDICARE SUPPLEMENT) Vicky Roblero [id number] Vicky Roblero Notes Date Note Type Note Provider Name and Address Organization Details Recorded Time 11/01/2024 text/html 79 yo F returns for evaluation of metastatic colon cancer. Patient recently seen on February 17, 2023 in the emergency room at [facility] with abdominal pain. Patient reported epigastric [...] 8.2 hematocrit 29.0. MCV 67.9. Platelet count 446208. Normal cell differential. Low serum folate of [...] with metastatic colorectal cancer. Discussed chemotherapy with [place] based regimen with 5FU Leucovorin if [...] with the Coumadin clinic at [facility]. She is scheduled for cardiac MRI. [...] study published in September 2022 in the [place] [facility] of combined Avastin therapy with Lonsurf. Phase 3 trial with median overall survival of 10.8 months in combination therapy verses 7.5 months Lonsurf alone. Progression-free survival 5.6 months versus 2.4 months in Lonsurf alone therapy. Patient returns on September 02, 2024. She has had increased abdominal pain. She is taking hydrocodone 7.5 mg 1 tab every 4 hours without much relief. Will start Morphine 15mg i tab po every 3-4 hours instead. Patient presented to the ER on October 27, 2024 with increased abdominal pain. CT of the abdomen pelvis with evidence of diverticulitis and progressive hepatic metastatic disease with enlarging periportal adenopathy. Abdominal pain has improved and pain is controlled with current pain medications. Patient is no longer receiving any chemotherapy. She has not want to proceed with any chemotherapy. Discussed hospice is an option since she does not want to do any treatment for her malignancy. Patient states she has not ready for hospice yet. She states she will let me know when she is ready. She does have a hospital bed along with a bedside commode and all the other equipment she needs. Will follow up labs today. She does have intermittent candidiasis rash under her breast folds. Will send prescription for nystatin to have if needed. Hanna Snider PA-C [address], [place], [address], [facility] - [facility] - [place] & [place] 11/01/2024 13:57:44 OBGyn Episode No OBEpisode recorded.
--- OUTSIDE RECORDS SUMMARY | 2024-11-15 09:14 | XMS_ITS | Encounter Summary ---
Author Organization [place] [address] Care Team Providers Care Home Delivery Driver Name Role Phone Luis Villasenor MD Unavailable [phone] Luis Villasenor MD Primary Care Provider Encounter Details Date Type Department Care Team (Latest Contact Info) Description 10/28/2024 Results Follow-Up SEP Sarah [address] [place] [id number] Amarilis Nolan, BLUEPRINT ASSEMBLER [address] [place] [address] COMPREHENSIVE METABOLIC PANEL, URINE CULTURE (NO STAIN) Social History Tobacco Use Types Packs/Day Years [...] 140/90 Blood Pressure 124/78(2024 9:10 AM EDT) Grace Avila CMA Maintain a healthy diet, exercise regularly [...] documented as of this encounter Care Teams Home Delivery Driver Relationship Specialty Start Date End Date Luis Villasenor MD [address] [place] [address] PCP - OBGYN 01/09/10 Luis Villasenor MD [address] [place] [address] PCP - General 01/09/10 documented as of this encounter
--- OUTSIDE RECORDS SUMMARY | 2024-11-15 09:14 | XMS_ITS | Encounter Summary ---
Author Organization [place] [address] Care Team Providers Care Project Development Director Name Role Phone Luis Villasenor MD Unavailable [phone] Luis Villasenor MD Primary Care Provider [phone] Reason for Visit * Reason Onset Date Comments Relaying Information 10/26/2024 Reporting n ew issues with pain. Encounter Details Date Type Department Care Team (Late st Contact Info) Description 10/26/2024 Telephone SEP Sarah [facility] [address] Luis Villasenor MD [employer] [facility] [place] [address] Relaying Information (Reporting new issues with pain. ///) Social History Tobacco Use Types Packs/Day Years [...] encounter Miscellaneous Notes * Telephone Encounter - Gallito King - 10/26/2024 9:08 AM EDT Select the most appropriate reason for this telephone message: Relaying Information Relaying Information Who is Calling: [facility] (include facility and caller's name) What information is the caller relaying:Pt. is having lower back pain, in right and left side x 2 days. Hydromorphine and it is not helping with pain at all. The pain she is having is a new pain she has never had before. Very tender to touch. Further follow-up needed? Yes Return Method of Communication:Phone call Additional Information:Home Health nurse wanted to know what Amarilis Nolan would like to do to help the Pt. documented in this encounter Plan of Treatment [...] documented as of this encounter Care Teams Project Development Director Relationship Specialty Start Date End Date Luis Villasenor MD [address] [place] [address] PCP - OBGYN 01/09/10 Luis Villasenor MD [address] [facility] [place] [id number] PCP - General 01/09/10 documented as of this encounter
--- OUTSIDE RECORDS SUMMARY | 2024-11-15 09:14 | XMS_ITS | Encounter Summary ---
Author Organization [place] [address] Care Team Providers Care Ui Developer Designer Name Role Phone Luis Villasenor MD Unavailable [phone] Luis Villasenor MD Primary Care Provider Reason for Visit * Reason Onset Date Comments Other 11/01/2024 Encounter Details Date Type Department Care Team (Late Contact Info) Description 11/01/2024 Telephone SEP Sarah [address] [place] [address] Luis Villasenor MD [address] [place] [address] Other Social History Tobacco Use Types Packs/Day Years [...] encounter Miscellaneous Notes * Telephone Encounter - Luis Balderrama MA - 11/01/2024 10:48 AM EDT FYI Home health nurse called, pt wants to keep the nurse but decline PT/OT documented in this encounter Plan of Treatment [...] documented as of this encounter Care Teams Ui Developer Designer Relationship Specialty Start Date End Date Luis Villasenor MD [address] [place] [phone] PCP - OBGYN 01/09/10 Luis Villasenor MD [address] [place] [phone] PCP - General 01/09/10 documented as of this encounter
--- OUTSIDE RECORDS SUMMARY | 2024-11-15 09:15 | XMS_ITS | Data Portability ---
Author Organization [facility] & BERNIE Guerrero ADMIN Address [address] [place] [id number] Care Team Providers Care Switchboard Installer Name Role Phone ADDY GONZALES General Surgeon CARLOS A COATS Primary Care Provider [phone] VERONIKA RIVER [employer] Assessment No assessment recorded. Plan of Treatment Reminders Order Date Submit Date Provider Last Modified By Organization Details Last Modified Time Details Appointments OV EST 30 2024 11:00A M Hanna Fournier PA-C Not available Not available Not available OV EST 30 2024 11:00A Xavier Fournier PA-C Not available Not available Not available Lab carcinoem bryonic Ag, quant, serum or plasma 2024 025 [email or web address] [facility], [address] [place], [address], 11/08/2024 10:04:49 CMP, serum or plasma 2024 025 [email or web address] [facility], [address] [place], [address], 11/01/2024 15:54:32 CBC w/ diff 2024 025 [email or web address] [facility], [address] [place], [address], 11/08/2024 10:04:49 culture, stool 2024 025 [email or web address] [facility], [address] [place], [address], 09/09/2024 11:40:08 O&P (ova & parasites ), stool [address] [facility], [address] [place], [address], 09/09/2024 11:40:09 C diff screen, stool, reflex PCR [address] [facility], [address] [place], [address], 09/09/2024 11:40:09 CBC w/ auto diff 2024 025 [facility], [address] [place], [address], 09/02/2024 16:09:44 CMP, serum or plasma 2024 025 [facility], [address] [place], [address], 09/02/2024 14:45:24 CBC w/ auto diff 2024 025 [facility], [address] [place], [address], 08/25/2024 09:46:31 CMP, serum or plasma 2024 025 [facility], [address] [place], [address], 08/25/2024 09:39:00 carcinoem bryonic Ag, quant, serum or plasma [address] [facility], [address] [place], [address], 09/05/2024 09:16:06 Referral radiation oncologis t referral 2024 025 [email or web address] Mary Valencia MD, [facility] [place], [address], 09/07/2024 08:24:10 Procedures None recorded. Surgeries None recorded. Imaging CT, head + brain, w/o contrast 2024 025 [email or web address] [facility] (Centralized Scheduling), [address], [place], [address], 09/02/2024 09:16:16 Medication Orders nystatin 100,000 unit/gram topical powder 2024 025 [facility], [address] [place], [address], 11/01/2024 13:56:59 ondansetr on 8 mg disintegr ating tablet [email or web address] [facility] [address], [address] [place], [address], 09/02/2024 12:29:05 Pepcid 20 mg tablet 2024 025 [facility], [address] [place], [address], 11/01/2024 13:10:36 megestrol 400 mg/10 mL (40 mg/mL) oral suspensio n 2024 025 [email or web address] [facility] [address], [address] [place], [address], 08/01/2024 11:59:15 Patient TargetsNo targets recorded. Patient InstructionsNo instructions recorded. Reason for Referral Referring Physician: Hanna Fournier, Hematology/Oncology, Encounter Date: 08/10/2024 Results Created Date Observation Date Name Description Value Unit Range Abnormal Flag Note LastModifiedBy Organization Detail LastModifiedTime 07/11/19 25 07/11/2024 CBC AUTO W DIFF WBC 6.9 K/uL 4.0-10 .5 Not Available [facility] ([facility]) [address], [place], [address], 07/11/2024 10:30:50 07/11/19 25 07/11/2024 CBC AUTO W DIFF RBC 3.8 M/mm3 4.2-6. 4 low Not Available [facility] ([facility]) [address] , [place], [address], 07/11/2024 10:30:50 07/11/19 25 07/11/2024 CBC AUTO W DIFF HGB 11.0 gm/dL 12.5-1 6.0 low Not Available [facility] ([facility]) [address] , [place], [address], 07/11/2024 10:30:50 07/11/19 25 07/11/2024 CBC AUTO W DIFF HCT 34.5 % 37.0-4 7.0 low Not Available [facility] ([facility]) [address] , [place], [address], 07/11/2024 10:30:50 07/11/19 25 07/11/2024 CBC AUTO W DIFF MCV 92.0 fL 78-100 Not Available [facility] ([facility]) [address] , [place], [address], 07/11/2024 10:30:50 07/11/19 25 07/11/2024 CBC AUTO W DIFF MCH 29.3 pg 27-31 Not Available [facility] ([facility]) [address] , [place], [address], 07/11/2024 10:30:50 07/11/19 25 07/11/2024 CBC AUTO W DIFF MCHC 31.9 g/dL 32-36 low Not Available [facility] ([facility]) [address] , [place], [address], 07/11/2024 10:30:50 07/11/19 25 07/11/2024 CBC AUTO W DIFF RDW 15.9 % 11.5-1 4.0 high Not Available [facility] ([facility]) [address] , [place], [address], 07/11/2024 10:30:50 07/11/19 25 07/11/2024 CBC AUTO W DIFF platelet count 267 K/uL 150-45 0 Not Available [facility] ([facility]) [address], [place], [address], 07/11/2024 10:30:50 07/11/19 25 07/11/2024 CBC AUTO W DIFF MPV 9.1 fL 6-9.5 Not Available [facility] ([facility]) [address], [place], [address], 07/11/2024 10:30:50 07/11/19 25 07/11/2024 CBC AUTO W DIFF neutrophil% 66.2 % 43-65 high Not Available [facility] ([facility]) [address], [place], [address], 07/11/2024 10:30:50 07/11/19 25 07/11/2024 CBC AUTO W DIFF lymphocyte% 18.6 % 20.5-4 5.5 low Not Available [facility] ([facility]) [address], [place], [address], 07/11/2024 10:30:50 07/11/19 25 07/11/2024 CBC AUTO W DIFF monocyte% 11.5 % 5.5-11 .7 Not Available [facility] ([facility]) [address] [place], [address], 07/11/2024 10:30:50 07/11/19 25 07/11/2024 CBC AUTO W DIFF eosinophil% 2.7 % 0.9-2. 9 Not Available [facility] ([facility]) [address] [place], [address], 07/11/2024 10:30:50 07/11/19 25 07/11/2024 CBC AUTO W DIFF basophil% 0.6 % 0.2-1. 0 Not Available [facility] ([facility]) [address] [facility], [place], [address], 07/11/2024 10:30:50 07/11/19 25 07/11/2024 CBC AUTO W DIFF immature granulocytes % 0.4 % 0.0-0. 8 Not Available [facility] ([facility]) [address] [facility], [place], [address], 07/11/2024 10:30:50 07/11/19 25 07/11/2024 CBC AUTO W DIFF nucleated red blood cells % 0.0 % Not Available [facility] ([facility]) [address] [facility], [place], [address], 07/11/2024 10:30:50 07/11/19 25 07/11/2024 CBC AUTO W DIFF neutrophil# 4.6 K/uL 2.2-4. 8 Not Available [facility] ([facility]) [address] [place], [address], 07/11/2024 10:30:50 07/11/19 25 07/11/2024 CBC AUTO W DIFF lymphocyte# 1.3 cell/ mcL 1.3-2. 9 Not Available [facility] ([facility]) [address] [place], [address], 07/11/2024 10:30:50 07/11/19 25 07/11/2024 CBC AUTO W DIFF monocyte# 0.8 cell/ mcL 0.3-0. 8 Not Available [facility] ([facility]) [address] [place], [address], 07/11/2024 10:30:50 07/11/19 25 07/11/2024 CBC AUTO W DIFF eosinophil# 0.2 cell/ mcL 0-0.2 Not Available [facility] ([facility]) [address], [place], [address], 07/11/2024 10:30:50 07/11/19 25 07/11/2024 CBC AUTO W DIFF basophil# 0.0 cell/ mcL 0.0-1. 0 Not Available [facility] ([facility]) [address], [place], [address], 07/11/2024 10:30:50 07/11/19 25 07/11/2024 CBC AUTO W DIFF immature gramulocytes # 0.03 K/uL Not Available [facility] ([facility]) [address], [place], [address], 07/11/2024 10:30:50 07/11/19 25 07/11/2024 CBC AUTO W DIFF nucleated red blood cells # 0.00 K/uL Not Available [facility] ([facility]) [address], [place], [address], 07/11/2024 10:30:50 07/11/19 25 07/11/2024 CBC AUTO W DIFF manual differential NO Not Available [facility] ([facility]) [address] , [place], [address], 07/11/2024 10:30:50 07/11/19 25 07/11/2024 COMP METAB OLIC PANEL sodium 137 mmol/ L 136-14 5 Not Available [facility] ([facility]) [address] , [place], [address], 07/11/2024 10:45:53 07/11/19 25 07/11/2024 COMP METAB OLIC PANEL potassium 3.4 mmol/ L 3.6-5. 0 low Not Available [facility] ([facility]) [address] , [place], [address], 07/11/2024 10:45:53 07/11/19 25 07/11/2024 COMP METAB OLIC PANEL chloride 100 mmol/ L 98-107 Not Available [facility] ([facility]) [address] , [place], [address], 07/11/2024 10:45:53 07/11/19 25 07/11/2024 COMP METAB OLIC PANEL carbon dioxide 28.2 mmol/ L 21.0-3 2.0 Not Available [facility] ([facility]) [address] , [place], [address], 07/11/2024 10:45:53 07/11/19 25 07/11/2024 COMP METAB OLIC PANEL anion gap 12.2 Not Available [facility] ([facility]) [address] , [place], [address], 07/11/2024 10:45:53 07/11/19 25 07/11/2024 COMP METAB OLIC PANEL glucose 208 mg/dL 70-120 high Not Available [facility] ([facility]) [address] , [place], [address], 07/11/2024 10:45:53 07/11/19 25 07/11/2024 COMP METAB OLIC PANEL BUN 16 mg/dL 7-18 Not Available [facility] ([facility]) [address] , [place], [address], 07/11/2024 10:45:53 07/11/19 25 07/11/2024 COMP METAB OLIC PANEL creatinine 1.2 mg/dL 0.6-1. 3 Not Available [facility] ([facility]) [address] , [place], [address], 07/11/2024 10:45:53 07/11/19 25 07/11/2024 COMP METAB [...] albrecht ing kiney funct ion. Not Available [facility] ([facility]) [address] [facility], [place], [address], 07/11/2024 10:45:53 07/11/19 25 07/11/2024 COMP METAB OLIC PANEL total protein 6.6 g/dL 6.4-8. 2 Not Available [facility] ([facility]) [address] [facility], [place], [address], 07/11/2024 10:45:53 07/11/19 25 07/11/2024 COMP METAB OLIC PANEL albumin 2.3 g/dL 3.4-5. 0 low Not Available [facility] ([facility]) [address] [facility], [place], [address], 07/11/2024 10:45:53 07/11/19 25 07/11/2024 COMP METAB OLIC PANEL globulin 4.3 Not Available [facility] ([facility]) [address] [facility], [place], [address], 07/11/2024 10:45:53 07/11/19 25 07/11/2024 COMP METAB OLIC PANEL alb/glob ratio 0.5 0.7-2 low Not Available [facility] ([facility]) [address] [place], [address], 07/11/2024 10:45:53 07/11/19 25 07/11/2024 COMP METAB OLIC PANEL calcium 8.9 mg/dL 8.5-10 .5 Not Available [facility] ([facility]) [address] [place], [address], 07/11/2024 10:45:53 07/11/19 25 07/11/2024 COMP METAB OLIC PANEL bilirubin total 0.50 mg/dL 0.10-1 .00 Not Available [facility] ([facility]) [address], [place], [address], 07/11/2024 10:45:53 07/11/19 25 07/11/2024 COMP METAB OLIC PANEL AST (SGOT) 50 U/L 0-37 high Not Available [facility] ([facility]) [address], [place], [address], 07/11/2024 10:45:53 07/11/19 25 07/11/2024 COMP METAB OLIC PANEL ALT (SGPT) 20 U/L 0-65 Not Available [facility] ([facility]) [address] [facility], [place], [address], 07/11/2024 10:45:53 07/11/19 25 07/11/2024 COMP METAB OLIC PANEL alk phosphatase 248 U/L 46-116 high Not Available [facility] ([facility]) [address] [facility], [place], [address], 07/11/2024 10:45:53 07/11/19 25 07/11/2024 MAGNE SIUM magnesium 2.3 mg/dL 1.8-2. 4 Not Available [facility] ([facility]) [address] [place], [address], 07/11/2024 10:45:56 07/11/19 25 07/11/2024 PT (PROT HROMB IN TIME) W INR prothrombin time 14.3 secon ds 9.3-11 .4 high Not Available [facility] ([facility]) [address] [facility], [place], [address], 07/11/2024 10:59:01 07/11/19 25 07/11/2024 PT (PROT [...] Mecha nical Heart Valve s Not Available [facility] ([facility]) [address] , [place], [address], 07/11/2024 10:59:01 07/11/19 25 07/12/2024 CEA cea 132.0 NG/mL 0.0-4. 7 high Nonsm okers <3.9 Smoke rs <5.6 . Lois Diagn ostic s Elect lois milum inesc ence Immun oassa y (ECLI A) . Value s obtai lexi with diffe rent assay metho ds or kits canno t be used inter albrecht eamikie . Resul ts canno t be inter prete d as absol false pass evide nce of the prese nce or absen ce of [facility] . Perfo rmed at: [place] [id number] Lab Direc tor: Tate staton PhD, Phone : [phone] Not Available [facility] ([facility]) [address] , [place], [address], 07/12/2024 13:09:06 07/25/19 25 07/25/2024 MAGNE SIUM magnesium 1.8 mg/dL 1.8-2. 4 Not Available [facility] ([facility]) [address] , [place], [address], 07/25/2024 10:51:25 07/25/19 25 07/25/2024 CBC AUTO W DIFF WBC 9.0 K/uL 4.0-10 .5 Not Available [facility] ([facility]) [address] , [place], [address], 07/25/2024 10:52:22 07/25/19 25 07/25/2024 CBC AUTO W DIFF RBC 4.3 M/mm3 4.2-6. 4 Not Available [facility] ([facility]) [address] , [place], [address], 07/25/2024 10:52:22 07/25/19 25 07/25/2024 CBC AUTO W DIFF HGB 12.6 gm/dL 12.5-1 6.0 Not Available [facility] ([facility]) [address], [place], [address], 07/25/2024 10:52:22 07/25/19 25 07/25/2024 CBC AUTO W DIFF HCT 39.6 % 37.0-4 7.0 Not Available [facility] ([facility]) [address], [place], [address], 07/25/2024 10:52:22 07/25/19 25 07/25/2024 CBC AUTO W DIFF MCV 92.7 fL 78-100 Not Available [facility] ([facility]) [address], [place], [address], 07/25/2024 10:52:22 07/25/19 25 07/25/2024 CBC AUTO W DIFF MCH 29.5 pg 27-31 Not Available [facility] ([facility]) [address] , [place], [address], 07/25/2024 10:52:22 07/25/19 25 07/25/2024 CBC AUTO W DIFF MCHC 31.8 g/dL 32-36 low Not Available [facility] ([facility]) [address] [place], [address], 07/25/2024 10:52:22 07/25/19 25 07/25/2024 CBC AUTO W DIFF RDW 16.8 % 11.5-1 4.0 high Not Available [facility] ([facility]) [address] , [place], [address], 07/25/2024 10:52:22 07/25/19 25 07/25/2024 CBC AUTO W DIFF platelet count 234 K/uL 150-45 0 Not Available [facility] ([facility]) [address] , [place], [address], 07/25/2024 10:52:22 07/25/19 25 07/25/2024 CBC AUTO W DIFF MPV 9.2 fL 6-9.5 Not Available [facility] ([facility]) [address] , [place], [address], 07/25/2024 10:52:22 07/25/19 25 07/25/2024 CBC AUTO W DIFF neutrophil% 70.3 % 43-65 high Not Available [facility] ([facility]) [address] , [place], [address], 07/25/2024 10:52:22 07/25/19 25 07/25/2024 CBC AUTO W DIFF lymphocyte% 16.5 % 20.5-4 5.5 low Not Available [facility] ([facility]) [address] , [place], [address], 07/25/2024 10:52:22 07/25/19 25 07/25/2024 CBC AUTO W DIFF monocyte% 7.0 % 5.5-11 .7 Not Available [facility] ([facility]) [address] , [place], [address], 07/25/2024 10:52:22 07/25/19 25 07/25/2024 CBC AUTO W DIFF eosinophil% 5.3 % 0.9-2. 9 high Not Available [facility] ([facility]) [address], [place], [address], 07/25/2024 10:52:22 07/25/19 25 07/25/2024 CBC AUTO W DIFF basophil% 0.6 % 0.2-1. 0 Not Available [facility] ([facility]) [address] [place], [address], 07/25/2024 10:52:22 07/25/19 25 07/25/2024 CBC AUTO W DIFF immature granulocytes % 0.3 % 0.0-0. 8 Not Available [facility] ([facility]) [address] [facility], [place], [address], 07/25/2024 10:52:22 07/25/19 25 07/25/2024 CBC AUTO W DIFF nucleated red blood cells % 0.0 % Not Available [facility] ([facility]) [address] [facility], [place], [address], 07/25/2024 10:52:22 07/25/19 25 07/25/2024 CBC AUTO W DIFF neutrophil# 6.3 K/uL 2.2-4. 8 high Not Available [facility] ([facility]) [address] [place], [address], 07/25/2024 10:52:22 07/25/19 25 07/25/2024 CBC AUTO W DIFF lymphocyte# 1.5 cell/ mcL 1.3-2. 9 Not Available [facility] ([facility]) [address] [place], [address], 07/25/2024 10:52:22 07/25/19 25 07/25/2024 CBC AUTO W DIFF monocyte# 0.6 cell/ mcL 0.3-0. 8 Not Available [facility] ([facility]) [address] [place], [address], 07/25/2024 10:52:22 07/25/19 25 07/25/2024 CBC AUTO W DIFF eosinophil# 0.5 cell/ mcL 0-0.2 high Not Available [facility] ([facility]) [address], [place], [address], 07/25/2024 10:52:22 07/25/19 25 07/25/2024 CBC AUTO W DIFF basophil# 0.1 cell/ mcL 0.0-1. 0 Not Available [facility] ([facility]) [address], [place], [address], 07/25/2024 10:52:22 07/25/19 25 07/25/2024 CBC AUTO W DIFF immature gramulocytes # 0.03 K/uL Not Available [facility] ([facility]) [address], [place], [address], 07/25/2024 10:52:22 07/25/19 25 07/25/2024 CBC AUTO W DIFF nucleated red blood cells # 0.00 K/uL Not Available [facility] ([facility]) [address], [place], [address], 07/25/2024 10:52:22 07/25/19 25 07/25/2024 CBC AUTO W DIFF manual differential NO Not Available [facility] ([facility]) [address], [place], [address], 07/25/2024 10:52:22 07/25/19 25 07/25/2024 COMP METAB OLIC PANEL sodium 137 mmol/ L 136-14 5 Not Available [facility] ([facility]) [address], [place], [address], 07/25/2024 10:58:53 07/25/19 25 07/25/2024 COMP METAB OLIC PANEL potassium 3.7 mmol/ L 3.6-5. 0 Not Available [facility] ([facility]) [address], [place], [address], 07/25/2024 10:58:53 07/25/19 25 07/25/2024 COMP METAB OLIC PANEL chloride 100 mmol/ L 98-107 Not Available [facility] ([facility]) [address] , [place], [address], 07/25/2024 10:58:53 07/25/19 25 07/25/2024 COMP METAB OLIC PANEL carbon dioxide 25.4 mmol/ L 21.0-3 2.0 Not Available [facility] ([facility]) [address], [place], [address], 07/25/2024 10:58:53 07/25/19 25 07/25/2024 COMP METAB OLIC PANEL anion gap 15.3 Not Available [facility] ([facility]) [address], [place], [address], 07/25/2024 10:58:53 07/25/19 25 07/25/2024 COMP METAB OLIC PANEL glucose 169 mg/dL 70-120 high Not Available [facility] ([facility]) [address] [facility], [place], [address], 07/25/2024 10:58:53 07/25/19 25 07/25/2024 COMP METAB OLIC PANEL BUN 17 mg/dL 7-18 Not Available [facility] ([facility]) [address] [facility], [place], [address], 07/25/2024 10:58:53 07/25/19 25 07/25/2024 COMP METAB OLIC PANEL creatinine 0.9 mg/dL 0.6-1. 3 Not Available [facility] ([facility]) [address] [place], [address], 07/25/2024 10:58:53 07/25/19 25 07/25/2024 COMP METAB [...] albrecht ing kiney funct ion. Not Available [facility] ([facility]) [address] [facility], [place], [address], 07/25/2024 10:58:53 07/25/19 25 07/25/2024 COMP METAB OLIC PANEL total protein 7.1 g/dL 6.4-8. 2 Not Available [facility] ([facility]) [address] [facility], [place], [address], 07/25/2024 10:58:53 07/25/19 25 07/25/2024 COMP METAB OLIC PANEL albumin 2.8 g/dL 3.4-5. 0 low Not Available [facility] ([facility]) [address] [facility], [place], [address], 07/25/2024 10:58:53 07/25/19 25 07/25/2024 COMP METAB OLIC PANEL globulin 4.3 Not Available [facility] ([facility]) [address] [facility], [place], [address], 07/25/2024 10:58:53 07/25/19 25 07/25/2024 COMP METAB OLIC PANEL alb/glob ratio 0.7 0.7-2 Not Available [facility] ([facility]) [address] [facility], [place], [address], 07/25/2024 10:58:53 07/25/19 25 07/25/2024 COMP METAB OLIC PANEL calcium 9.0 mg/dL 8.5-10 .5 Not Available [facility] ([facility]) [address] [facility], [place], [address], 07/25/2024 10:58:53 07/25/19 25 07/25/2024 COMP METAB OLIC PANEL bilirubin total 0.60 mg/dL 0.10-1 .00 Not Available [facility] ([facility]) [address] [facility], [place], [address], 07/25/2024 10:58:53 07/25/19 25 07/25/2024 COMP METAB OLIC PANEL AST (SGOT) 33 U/L 0-37 Not Available [facility] ([facility]) [address] [facility], [place], [address], 07/25/2024 10:58:53 07/25/19 25 07/25/2024 COMP METAB OLIC PANEL ALT (SGPT) 20 U/L 0-65 Not Available [facility] ([facility]) [address] [facility], [place], [address], 07/25/2024 10:58:53 07/25/19 25 07/25/2024 COMP METAB OLIC PANEL alk phosphatase 224 U/L 46-116 high Not Available [facility] ([facility]) [address] [facility], [place], [address], 07/25/2024 10:58:53 07/25/19 25 07/25/2024 PT (PROT HROMB IN TIME) W INR prothrombin time 27.2 secon ds 9.3-11 .4 high Not Available [facility] ([facility]) [address] [place], [address], 07/25/2024 11:01:05 07/25/19 25 07/25/2024 PT (PROT [...] Mecha nical Heart Valve s Not Available [facility] ([facility]) [address], [place], [address], 07/25/2024 11:01:05 07/25/19 25 07/26/2024 CEA cea 111.0 NG/mL 0.0-4. 7 high Nonsm okers <3.9 Smoke rs <5.6 . Lois Diagn ostic s Elect lois milum inesc ence Immun oassa y (ECLI A) . Value s obtai lexi with diffe rent assay metho ds or kits canno t be used inter albrecht eably . Resul ts canno t be inter prete d as absol false pass evide nce of the prese nce or absen ce of [facility] se. Perfo rmed at: [place] [id number] Lab Direc tor: Tate staton PhD, Phone : [phone] Not Available [facility] ([facility]) [address] [facility], [place], [address], 07/26/2024 08:13:00 08/11/19 25 08/10/2024 CBC AUTO W DIFF WBC 10.3 K/uL 4.0-10 .5 Not Available [facility] ([facility]) [address], [place], [address], 08/10/2024 10:33:28 08/11/19 25 08/10/2024 CBC AUTO W DIFF RBC 4.0 M/mm3 4.2-6. 4 low Not Available [facility] ([facility]) [address] [facility], [place], [address], 08/10/2024 10:33:28 08/11/19 25 08/10/2024 CBC AUTO W DIFF HGB 11.9 gm/dL 12.5-1 6.0 low Not Available [facility] ([facility]) [address] [facility], [place], [address], 08/10/2024 10:33:28 08/11/19 25 08/10/2024 CBC AUTO W DIFF HCT 36.4 % 37.0-4 7.0 low Not Available [facility] ([facility]) [address] , [place], [address], 08/10/2024 10:33:28 08/11/19 25 08/10/2024 CBC AUTO W DIFF MCV 91.7 fL 78-100 Not Available [facility] ([facility]) [address] , [place], [address], 08/10/2024 10:33:28 08/11/19 25 08/10/2024 CBC AUTO W DIFF MCH 30.0 pg 27-31 Not Available [facility] ([facility]) [address] , [place], [address], 08/10/2024 10:33:28 08/11/19 25 08/10/2024 CBC AUTO W DIFF MCHC 32.7 g/dL 32-36 Not Available [facility] ([facility]) [address] , [place], [address], 08/10/2024 10:33:28 08/11/19 25 08/10/2024 CBC AUTO W DIFF RDW 16.3 % 11.5-1 4.0 high Not Available [facility] ([facility]) [address] , [place], [address], 08/10/2024 10:33:28 08/11/19 25 08/10/2024 CBC AUTO W DIFF platelet count 227 K/uL 150-45 0 Not Available [facility] ([facility]) [address], [place], [address], 08/10/2024 10:33:28 08/11/19 25 08/10/2024 CBC AUTO W DIFF MPV 9.6 fL 6-9.5 high Not Available [facility] ([facility]) [address], [place], [address], 08/10/2024 10:33:28 08/11/19 25 08/10/2024 CBC AUTO W DIFF neutrophil% 71.2 % 43-65 high Not Available [facility] ([facility]) [address] [facility], [place], [address], 08/10/2024 10:33:28 08/11/19 25 08/10/2024 CBC AUTO W DIFF lymphocyte% 12.6 % 20.5-4 5.5 low Not Available [facility] ([facility]) [address] [facility], [place], [address], 08/10/2024 10:33:28 08/11/19 25 08/10/2024 CBC AUTO W DIFF monocyte% 6.6 % 5.5-11 .7 Not Available [facility] ([facility]) [address] [facility], [place], [address], 08/10/2024 10:33:28 08/11/19 25 08/10/2024 CBC AUTO W DIFF eosinophil% 8.6 % 0.9-2. 9 high Not Available [facility] ([facility]) [address] [facility], [place], [address], 08/10/2024 10:33:28 08/11/19 25 08/10/2024 CBC AUTO W DIFF basophil% 0.7 % 0.2-1. 0 Not Available [facility] ([facility]) [address] [facility], [place], [address], 08/10/2024 10:33:28 08/11/19 25 08/10/2024 CBC AUTO W DIFF immature granulocytes % 0.3 % 0.0-0. 8 Not Available [facility] ([facility]) [address] [facility], [place], [address], 08/10/2024 10:33:28 08/11/19 25 08/10/2024 CBC AUTO W DIFF nucleated red blood cells % 0.0 % Not Available [facility] ([facility]) [address] [facility], [place], [address], 08/10/2024 10:33:28 08/11/19 25 08/10/2024 CBC AUTO W DIFF neutrophil# 7.3 K/uL 2.2-4. 8 high Not Available [facility] ([facility]) [address] [facility], [place], [address], 08/10/2024 10:33:28 08/11/19 25 08/10/2024 CBC AUTO W DIFF lymphocyte# 1.3 cell/ mcL 1.3-2. 9 Not Available [facility] ([facility]) [address], [place], [address], 08/10/2024 10:33:28 08/11/19 25 08/10/2024 CBC AUTO W DIFF monocyte# 0.7 cell/ mcL 0.3-0. 8 Not Available [facility] ([facility]) [address] [place], [address], 08/10/2024 10:33:28 08/11/19 25 08/10/2024 CBC AUTO W DIFF eosinophil# 0.9 cell/ mcL 0-0.2 high Not Available [facility] ([facility]) [address] [place], [address], 08/10/2024 10:33:28 08/11/19 25 08/10/2024 CBC AUTO W DIFF basophil# 0.1 cell/ mcL 0.0-1. 0 Not Available [facility] ([facility]) [address] [place], [address], 08/10/2024 10:33:28 08/11/19 25 08/10/2024 CBC AUTO W DIFF immature gramulocytes # 0.03 K/uL Not Available [facility] ([facility]) [address] [place], [address], 08/10/2024 10:33:28 08/11/19 25 08/10/2024 CBC AUTO W DIFF nucleated red blood cells # 0.00 K/uL Not Available [facility] ([facility]) [address], [place], [address], 08/10/2024 10:33:28 08/11/19 25 08/10/2024 CBC AUTO W DIFF manual differential NO Not Available [facility] ([facility]) [address], [place], [address], 08/10/2024 10:33:28 08/11/19 25 08/10/2024 COMP METAB OLIC PANEL sodium 140 mmol/ L 136-14 5 Not Available [facility] ([facility]) [address], [place], [address], 08/10/2024 10:56:34 08/11/19 25 08/10/2024 COMP METAB OLIC PANEL potassium 4.1 mmol/ L 3.6-5. 0 Not Available [facility] ([facility]) [address], [place], [address], 08/10/2024 10:56:34 08/11/19 25 08/10/2024 COMP METAB OLIC PANEL chloride 104 mmol/ L 98-107 Not Available [facility] ([facility]) [address], [place], [address], 08/10/2024 10:56:34 08/11/19 25 08/10/2024 COMP METAB OLIC PANEL carbon dioxide 22.7 mmol/ L 21.0-3 2.0 Not Available [facility] ([facility]) [address], [place], [address], 08/10/2024 10:56:34 08/11/19 25 08/10/2024 COMP METAB OLIC PANEL anion gap 17.4 Not Available [facility] ([facility]) [address], [place], [address], 08/10/2024 10:56:34 08/11/19 25 08/10/2024 COMP METAB OLIC PANEL glucose 180 mg/dL 70-120 high Not Available [facility] ([facility]) [address], [place], [address], 08/10/2024 10:56:34 08/11/19 25 08/10/2024 COMP METAB OLIC PANEL BUN 13 mg/dL 7-18 Not Available [facility] ([facility]) [address], [place], [address], 08/10/2024 10:56:34 08/11/19 25 08/10/2024 COMP METAB OLIC PANEL creatinine 1.05 mg/dL 0.6-1. 3 Not Available [facility] ([facility]) [address] , [place], [address], 08/10/2024 10:56:34 08/11/19 25 08/10/2024 COMP METAB [...] albrecht ing kiney funct ion. Not Available [facility] ([facility]) [address] , [place], [address], 08/10/2024 10:56:34 08/11/19 25 08/10/2024 COMP METAB OLIC PANEL total protein 6.9 g/dL 6.4-8. 2 Not Available [facility] ([facility]) [address], [place], [address], 08/10/2024 10:56:34 08/11/19 25 08/10/2024 COMP METAB OLIC PANEL albumin 4.3 g/dL 3.4-5. 0 Not Available [facility] ([facility]) [address], [place], [address], 08/10/2024 10:56:34 08/11/19 25 08/10/2024 COMP METAB OLIC PANEL globulin 2.6 Not Available [facility] ([facility]) [address], [place], [address], 08/10/2024 10:56:34 08/11/19 25 08/10/2024 COMP METAB OLIC PANEL alb/glob ratio 1.7 0.7-2 Not Available [facility] ([facility]) [address] , [place], [address], 08/10/2024 10:56:34 08/11/19 25 08/10/2024 COMP METAB OLIC PANEL calcium 8.9 mg/dL 8.5-10 .5 Not Available [facility] ([facility]) [address] , [place], [address], 08/10/2024 10:56:34 08/11/19 25 08/10/2024 COMP METAB OLIC PANEL bilirubin total 0.6 mg/dL 0.10-1 .00 Not Available [facility] ([facility]) [address] , [place], [address], 08/10/2024 10:56:34 08/11/19 25 08/10/2024 COMP METAB OLIC PANEL AST (SGOT) 40 U/L 0-37 high Not Available [facility] ([facility]) [address] , [place], [address], 08/10/2024 10:56:34 08/11/19 25 08/10/2024 COMP METAB OLIC PANEL ALT (SGPT) 23 U/L 0-65 Not Available [facility] ([facility]) [address], [place], [address], 08/10/2024 10:56:34 08/11/19 25 08/10/2024 COMP METAB OLIC PANEL alk phosphatase 234 U/L 46-116 high Not Available [facility] ([facility]) [address], [place], [address], 08/10/2024 10:56:34 08/11/19 25 08/10/2024 MAGNE SIUM magnesium 2.1 mg/dL 1.8-2. 4 Not Available [facility] ([facility]) [address], [place], [address], 08/10/2024 10:57:38 08/11/19 25 08/10/2024 PT (PROT HROMB IN TIME) W INR prothrombin time 36.2 secon ds 9.3-11 .4 high Not Available [facility] ([facility]) [address] [facility], [place], [address], 08/10/2024 10:58:45 08/11/19 25 08/10/2024 PT (PROT [...] Mecha nical Heart Valve s Not Available [facility] ([facility]) [address], [place], [address], 08/10/2024 10:58:45 08/26/19 25 08/25/2024 COMP METAB OLIC PANEL sodium 137 mmol/ L 136-14 5 Not Available [facility] ([facility]) [address] , [place], [address], 08/25/2024 09:39:00 08/26/19 25 08/25/2024 COMP METAB OLIC PANEL potassium 4.1 mmol/ L 3.6-5. 0 Not Available [facility] ([facility]) [address] , [place], [address], 08/25/2024 09:39:00 08/26/19 25 08/25/2024 COMP METAB OLIC PANEL chloride 101 mmol/ L 98-107 Not Available [facility] ([facility]) [address] , [place], [address], 08/25/2024 09:39:00 08/26/19 25 08/25/2024 COMP METAB OLIC PANEL carbon dioxide 23.8 mmol/ L 21.0-3 2.0 Not Available [facility] ([facility]) [address] , [place], [address], 08/25/2024 09:39:00 08/26/19 25 08/25/2024 COMP METAB OLIC PANEL anion gap 16.3 Not Available [facility] ([facility]) [address] , [place], [address], 08/25/2024 09:39:00 08/26/19 25 08/25/2024 COMP METAB OLIC PANEL glucose 169 mg/dL 70-120 high Not Available [facility] ([facility]) [address] [place], [address], 08/25/2024 09:39:00 08/26/19 25 08/25/2024 COMP METAB OLIC PANEL BUN 17 mg/dL 7-18 Not Available [facility] ([facility]) [address] , [place], [address], 08/25/2024 09:39:00 08/26/19 25 08/25/2024 COMP METAB OLIC PANEL creatinine 1.5 mg/dL 0.6-1. 3 high Not Available [facility] ([facility]) [address] , [place], [address], 08/25/2024 09:39:00 08/26/19 25 08/25/2024 COMP METAB OLIC PANEL glomerular filtration rate [...] albrecht ing kiney funct ion. Not Available [facility] ([facility]) [address] , [place], [address], 08/25/2024 09:39:00 08/26/19 25 08/25/2024 COMP METAB OLIC PANEL osmolality (calculated) 291 mOsm/ kg 275-30 1 OSMOL ALITY IS A CALCU LATIO N UTILI ZING THE SERUM /PLAS MA SODIU M, GLUCO SE AND UREA NITRO GEN (BUN) LEVEL S. FOR THE MOST ACCUR ATE RESUL T A MEASU RED SERUM OSMOL ALITY IS SUGGE STED. Not Available [facility] ([facility]) [address], [place], [address], 08/25/2024 09:39:00 08/26/1908/25/2024 COMP METAB OLIC PANEL total protein 7.2 g/dL 6.4-8. 2 Not Available [facility] ([facility]) [address] , [place], [address], 08/25/2024 09:39:00 08/26/19 25 08/25/2024 COMP METAB OLIC PANEL albumin 2.9 g/dL 3.4-5. 0 low Not Available [facility] ([facility]) [address], [place], [address], 08/25/2024 09:39:00 08/26/19 25 08/25/2024 COMP METAB OLIC PANEL globulin 4.3 Not Available [facility] ([facility]) [address], [place], [address], 08/25/2024 09:39:00 08/26/19 25 08/25/2024 COMP METAB OLIC PANEL alb/glob ratio 0.7 0.7-2 Not Available [facility] ([facility]) [address], [place], [address], 08/25/2024 09:39:00 08/26/19 25 08/25/2024 COMP METAB OLIC PANEL calcium 8.9 mg/dL 8.5-10 .5 Not Available [facility] ([facility]) [address] [facility], [place], [address], 08/25/2024 09:39:00 08/26/19 25 08/25/2024 COMP METAB OLIC PANEL bilirubin total 0.50 mg/dL 0.10-1 .00 Not Available [facility] ([facility]) [address], [place], [address], 08/25/2024 09:39:00 08/26/19 25 08/25/2024 COMP METAB OLIC PANEL AST (SGOT) 18 U/L 0-37 Not Available [facility] ([facility]) [address], [place], [address], 08/25/2024 09:39:00 08/26/19 25 08/25/2024 COMP METAB OLIC PANEL ALT (SGPT) 16 U/L 0-65 Not Available [facility] ([facility]) [address], [place], [address], 08/25/2024 09:39:00 08/26/19 25 08/25/2024 COMP METAB OLIC PANEL alk phosphatase 218 U/L 46-116 high Not Available [facility] ([facility]) [address], [place], [address], 08/25/2024 09:39:00 08/26/19 25 08/25/2024 MAGNE SIUM magnesium 1.8 mg/dL 1.8-2. 4 Not Available [facility] ([facility]) [address], [place], [address], 08/25/2024 09:39:02 08/26/19 25 08/25/2024 CBC AUTO W DIFF WBC 3.5 K/uL 4.0-10 .5 low Not Available [facility] ([facility]) [address], [place], [address], 08/25/2024 09:46:31 08/26/19 25 08/25/2024 CBC AUTO W DIFF RBC 3.9 M/mm3 4.2-6. 4 low Not Available [facility] ([facility]) [address], [place], [address], 08/25/2024 09:46:31 08/26/19 25 08/25/2024 CBC AUTO W DIFF HGB 11.4 gm/dL 12.5-1 6.0 low Not Available [facility] ([facility]) [address], [place], [address], 08/25/2024 09:46:31 08/26/19 25 08/25/2024 CBC AUTO W DIFF HCT 34.6 % 37.0-4 7.0 low Not Available [facility] ([facility]) [address], [place], [address], 08/25/2024 09:46:31 08/26/19 25 08/25/2024 CBC AUTO W DIFF MCV 88.7 fL 78-100 Not Available [facility] ([facility]) [address], [place], [address], 08/25/2024 09:46:31 08/26/19 25 08/25/2024 CBC AUTO W DIFF MCH 29.2 pg 27-31 Not Available [facility] ([facility]) [address] , [place], [address], 08/25/2024 09:46:31 08/26/19 25 08/25/2024 CBC AUTO W DIFF MCHC 32.9 g/dL 32-36 Not Available [facility] ([facility]) [address] , [place], [address], 08/25/2024 09:46:31 08/26/19 25 08/25/2024 CBC AUTO W DIFF RDW 15.6 % 11.5-1 4.0 high Not Available [facility] ([facility]) [address], [place], [address], 08/25/2024 09:46:31 08/26/19 25 08/25/2024 CBC AUTO W DIFF platelet count 295 K/uL 150-45 0 Not Available [facility] ([facility]) [address], [place], [address], 08/25/2024 09:46:31 08/26/19 25 08/25/2024 CBC AUTO W DIFF MPV 9.0 fL 6-9.5 Not Available [facility] ([facility]) [address] [place], [address], 08/25/2024 09:46:31 08/26/19 25 08/25/2024 CBC AUTO W DIFF neutrophil% 39.6 % 43-65 low Not Available [facility] ([facility]) [address] [place], [address], 08/25/2024 09:46:31 08/26/19 25 08/25/2024 CBC AUTO W DIFF lymphocyte% 41.8 % 20.5-4 5.5 Not Available [facility] ([facility]) [address] [facility] [place], [address], 08/25/2024 09:46:31 08/26/19 25 08/25/2024 CBC AUTO W DIFF monocyte% 13.4 % 5.5-11 .7 high Not Available [facility] ([facility]) [address], [place], [address], 08/25/2024 09:46:31 08/26/19 25 08/25/2024 CBC AUTO W DIFF eosinophil% 3.7 % 0.9-2. 9 high Not Available [facility] ([facility]) [address], [place], [address], 08/25/2024 09:46:31 08/26/19 25 08/25/2024 CBC AUTO W DIFF basophil% 0.9 % 0.2-1. 0 Not Available [facility] ([facility]) [address] [facility], [place], [address], 08/25/2024 09:46:31 08/26/19 25 08/25/2024 CBC AUTO W DIFF immature granulocytes % 0.6 % 0.0-0. 8 Not Available [facility] ([facility]) [address], [place], [address], 08/25/2024 09:46:31 08/26/19 25 08/25/2024 CBC AUTO W DIFF nucleated red blood cells % 0.0 % Not Available [facility] ([facility]) [address] [place], [address], 08/25/2024 09:46:31 08/26/19 25 08/25/2024 CBC AUTO W DIFF neutrophil# 1.4 K/uL 2.2-4. 8 low Not Available [facility] ([facility]) [address] [place], [address], 08/25/2024 09:46:31 08/26/19 25 08/25/2024 CBC AUTO W DIFF lymphocyte# 1.5 cell/ mcL 1.3-2. 9 Not Available [facility] ([facility]) [address], [place], [address], 08/25/2024 09:46:31 08/26/19 25 08/25/2024 CBC AUTO W DIFF monocyte# 0.5 cell/ mcL 0.3-0. 8 Not Available [facility] ([facility]) [address] [facility], [place], [address], 08/25/2024 09:46:31 08/26/19 25 08/25/2024 CBC AUTO W DIFF eosinophil# 0.1 cell/ mcL 0-0.2 Not Available [facility] ([facility]) [address] [facility], [place], [address], 08/25/2024 09:46:31 08/26/19 25 08/25/2024 CBC AUTO W DIFF basophil# 0.0 cell/ mcL 0.0-1. 0 Not Available [facility] ([facility]) [address] [facility], [place], [address], 08/25/2024 09:46:31 08/26/19 25 08/25/2024 CBC AUTO W DIFF immature gramulocytes # 0.02 K/uL Not Available [facility] ([facility]) [address] [facility], [place], [address], 08/25/2024 09:46:31 08/26/19 25 08/25/2024 CBC AUTO W DIFF nucleated red blood cells # 0.00 K/uL Not Available [facility] ([facility]) [address] [place], [address], 08/25/2024 09:46:31 08/26/19 25 08/25/2024 CBC AUTO W DIFF manual differential NO Not Available [facility] ([facility]) [address] , [place], [address], 08/25/2024 09:46:31 08/26/19 25 08/25/2024 PT (PROT HROMB IN TIME) W INR prothrombin time 77.1 secon ds 9.3-11 .4 critical high Not Available [facility] ([facility]) [address] , [place], [address], 08/25/2024 10:02:40 08/26/19 25 08/25/2024 PT (PROT [...] Mecha nical Heart Valve s Not Available [facility] ([facility]) [address] , [place], [address], 08/25/2024 10:02:40 09/03/19 25 09/02/2024 COMP METAB OLIC PANEL sodium 131 mmol/ L 136-14 5 low Not Available [facility] ([facility]) [address] , [place], [address], 09/02/2024 14:45:24 09/03/19 25 09/02/2024 COMP METAB OLIC PANEL potassium 4.0 mmol/ L 3.6-5. 0 Not Available [facility] ([facility]) [address] , [place], [address], 09/02/2024 14:45:24 09/03/19 25 09/02/2024 COMP METAB OLIC PANEL chloride 99 mmol/ L 98-107 Not Available [facility] ([facility]) [address] , [place], [address], 09/02/2024 14:45:24 09/03/19 25 09/02/2024 COMP METAB OLIC PANEL carbon dioxide 18.6 mmol/ L 21.0-3 2.0 low Not Available [facility] ([facility]) [address], [place], [address], 09/02/2024 14:45:24 09/03/19 25 09/02/2024 COMP METAB OLIC PANEL anion gap 17.4 Not Available [facility] ([facility]) [address], [place], [address], 09/02/2024 14:45:24 09/03/19 25 09/02/2024 COMP METAB OLIC PANEL glucose 145 mg/dL 70-120 high Not Available [facility] ([facility]) [address], [place], [address], 09/02/2024 14:45:24 09/03/19 25 09/02/2024 COMP METAB OLIC PANEL BUN 36 mg/dL 7-18 high Not Available [facility] ([facility]) [address] [facility], [place], [address], 09/02/2024 14:45:24 09/03/19 25 09/02/2024 COMP METAB OLIC PANEL creatinine 1.5 mg/dL 0.6-1. 3 high Not Available [facility] ([facility]) [address] [facility], [place], [address], 09/02/2024 14:45:24 09/03/19 25 09/02/2024 COMP METAB [...] sukhwinder diet or rapid [facility]. Not Available [facility] ([facility]) [address], [place], [address], 09/02/2024 14:45:24 09/03/19 25 09/02/2024 COMP METAB OLIC PANEL osmolality (calculated) 284 mOsm/ kg 275-30 1 OSMOL ALITY IS A CALCU LATIO N UTILI ZING THE SERUM /PLAS MA SODIU M, GLUCO SE AND UREA NITRO GEN (BUN) LEVEL S. FOR THE MOST ACCUR ATE RESUL T A MEASU RED SERUM OSMOL ALITY IS SUGGE STED. Not Available [facility] ([facility]) [address], [place], [address], 09/02/2024 14:45:24 09/03/19 25 09/02/2024 COMP METAB OLIC PANEL total protein 5.9 g/dL 6.4-8. 2 low Not Available [facility] ([facility]) [address], [place], [address], 09/02/2024 14:45:24 09/03/19 25 09/02/2024 COMP METAB OLIC PANEL albumin 2.1 g/dL 3.4-5. 0 low Not Available [facility] ([facility]) [address], [place], [address], 09/02/2024 14:45:24 09/03/19 25 09/02/2024 COMP METAB OLIC PANEL globulin 3.8 Not Available [facility] ([facility]) [address], [place], [address], 09/02/2024 14:45:24 09/03/19 25 09/02/2024 COMP METAB OLIC PANEL alb/glob ratio 0.6 0.7-2 low Not Available [facility] ([facility]) [address], [place], [address], 09/02/2024 14:45:24 09/03/19 25 09/02/2024 COMP METAB OLIC PANEL calcium 8.1 mg/dL 8.5-10 .5 low Not Available [facility] ([facility]) [address] , [place], [address], 09/02/2024 14:45:24 09/03/19 25 09/02/2024 COMP METAB OLIC PANEL bilirubin total 1.10 mg/dL 0.10-1 .00 high Not Available [facility] ([facility]) [address] , [place], [address], 09/02/2024 14:45:24 09/03/19 25 09/02/2024 COMP METAB OLIC PANEL AST (SGOT) 13 U/L 0-37 Not Available [facility] ([facility]) [address], [place], [address], 09/02/2024 14:45:24 09/03/19 25 09/02/2024 COMP METAB OLIC PANEL ALT (SGPT) 13 U/L 0-65 Not Available [facility] ([facility]) [address] , [place], [address], 09/02/2024 14:45:24 09/03/19 25 09/02/2024 COMP METAB OLIC PANEL alk phosphatase 188 U/L 46-116 high Not Available [facility] ([facility]) [address] , [place], [address], 09/02/2024 14:45:24 09/03/19 25 09/02/2024 CBC AUTO W DIFF WBC 1.2 K/uL 4.0-10 .5 critical low Not Available [facility] ([facility]) [address] , [place], [address], 09/02/2024 16:09:44 09/03/19 25 09/02/2024 CBC AUTO W DIFF RBC 3.4 M/mm3 4.2-6. 4 low Not Available [facility] ([facility]) [address], [place], [address], 09/02/2024 16:09:44 09/03/19 25 09/02/2024 CBC AUTO W DIFF HGB 9.6 gm/dL 12.5-1 6.0 low Not Available [facility] ([facility]) [address], [place], [address], 09/02/2024 16:09:44 09/03/19 25 09/02/2024 CBC AUTO W DIFF HCT 28.7 % 37.0-4 7.0 low Not Available [facility] ([facility]) [address], [place], [address], 09/02/2024 16:09:44 09/03/19 25 09/02/2024 CBC AUTO W DIFF MCV 85.4 fL 78-100 Not Available [facility] ([facility]) [address], [place], [address], 09/02/2024 16:09:44 09/03/19 25 09/02/2024 CBC AUTO W DIFF MCH 28.6 pg 27-31 Not Available [facility] ([facility]) [address], [place], [address], 09/02/2024 16:09:44 09/03/19 25 09/02/2024 CBC AUTO W DIFF MCHC 33.4 g/dL 32-36 Not Available [facility] ([facility]) [address], [place], [address], 09/02/2024 16:09:44 09/03/19 25 09/02/2024 CBC AUTO W DIFF RDW 15.9 % 11.5-1 4.0 high Not Available [facility] ([facility]) [address], [place], [address], 09/02/2024 16:09:44 09/03/19 25 09/02/2024 CBC AUTO W DIFF platelet count 213 K/uL 150-45 0 Not Available [facility] ([facility]) [address] , [place], [address], 09/02/2024 16:09:44 09/03/19 25 09/02/2024 CBC AUTO W DIFF MPV 9.6 fL 6-9.5 high Not Available [facility] ([facility]) [address] , [place], [address], 09/02/2024 16:09:44 09/03/19 25 09/02/2024 CBC AUTO W DIFF neutrophil% 57.7 % 43-65 Not Available [facility] ([facility]) [address] , [place], [address], 09/02/2024 16:09:44 09/03/19 25 09/02/2024 CBC AUTO W DIFF lymphocyte% 25.4 % 20.5-4 5.5 Not Available [facility] ([facility]) [address] , [place], [address], 09/02/2024 16:09:44 09/03/19 25 09/02/2024 CBC AUTO W DIFF monocyte% 15.3 % 5.5-11 .7 high Not Available [facility] ([facility]) [address] , [place], [address], 09/02/2024 16:09:44 09/03/19 25 09/02/2024 CBC AUTO W DIFF eosinophil% 0.0 % 0.9-2. 9 low Not Available [facility] ([facility]) [address] [place], [address], 09/02/2024 16:09:44 09/03/19 25 09/02/2024 CBC AUTO W DIFF basophil% 0.8 % 0.2-1. 0 Not Available [facility] ([facility]) [address] [place], [address], 09/02/2024 16:09:44 09/03/19 25 09/02/2024 CBC AUTO W DIFF immature granulocytes % 0.8 % 0.0-0. 8 Not Available [facility] ([facility]) [address], [place], [address], 09/02/2024 16:09:44 09/03/19 25 09/02/2024 CBC AUTO W DIFF nucleated red blood cells % 0.0 % Not Available [facility] ([facility]) [address], [place], [address], 09/02/2024 16:09:44 09/03/19 25 09/02/2024 CBC AUTO W DIFF neutrophil# 0.7 K/uL 2.2-4. 8 low Not Available [facility] ([facility]) [address] [facility], [place], [address], 09/02/2024 16:09:44 09/03/19 25 09/02/2024 CBC AUTO W DIFF lymphocyte# 0.3 cell/ mcL 1.3-2. 9 low Not Available [facility] ([facility]) [address] [place], [address], 09/02/2024 16:09:44 09/03/19 25 09/02/2024 CBC AUTO W DIFF monocyte# 0.2 cell/ mcL 0.3-0. 8 low Not Available [facility] ([facility]) [address] [place], [address], 09/02/2024 16:09:44 09/03/19 25 09/02/2024 CBC AUTO W DIFF eosinophil# 0.0 cell/ mcL 0-0.2 Not Available [facility] ([facility]) [address] [place], [address], 09/02/2024 16:09:44 09/03/19 25 09/02/2024 CBC AUTO W DIFF basophil# 0.0 cell/ mcL 0.0-1. 0 Not Available [facility] ([facility]) [address] , [place], [address], 09/02/2024 16:09:44 09/03/19 25 09/02/2024 CBC AUTO W DIFF immature gramulocytes # 0.01 K/uL Not Available [facility] ([facility]) [address] , [place], [address], 09/02/2024 16:09:44 09/03/19 25 09/02/2024 CBC AUTO W DIFF nucleated red blood cells # 0.00 K/uL Not Available [facility] ([facility]) [address], [place], [address], 09/02/2024 16:09:44 09/03/19 25 09/02/2024 CBC AUTO W DIFF manual differential YES Not Available [facility] ([facility]) [address] , [place], [address], 09/02/2024 16:09:44 09/03/19 25 09/02/2024 CBC AUTO W DIFF segmented neutrophil 54 % 42-76 Not Available [facility] ([facility]) [address] , [place], [address], 09/02/2024 16:09:44 09/03/19 25 09/02/2024 CBC AUTO W DIFF band neutrophil 8 % 0-8 Not Available [facility] ([facility]) [address], [place], [address], 09/02/2024 16:09:44 09/03/19 25 09/02/2024 CBC AUTO W DIFF lymphocyte 16 % 15-41 Not Available [facility] ([facility]) [address] , [place], [address], 09/02/2024 16:09:44 09/03/19 25 09/02/2024 CBC AUTO W DIFF monocyte 20 % 2-9 high Not Available [facility] ([facility]) [address] , [place], [address], 09/02/2024 16:09:44 09/03/19 25 09/02/2024 CBC AUTO W DIFF eosinophil 2 % 0-3 Not Available [facility] ([facility]) [address] , [place], [address], 09/02/2024 16:09:44 09/03/19 25 09/02/2024 CBC AUTO W DIFF platelet estimate ADEQUA TE adequa te Not Available [facility] ([facility]) [address] , [place], [address], 09/02/2024 16:09:44 09/03/19 25 09/02/2024 CBC AUTO W DIFF platelet morphology NORMAL normal Not Available [facility] ([facility]) [address] , [place], [address], 09/02/2024 16:09:44 09/03/19 25 09/02/2024 CBC AUTO W DIFF RBC morphology NORMAL normal Not Available [facility] ([facility]) [address] , [place], [address], 09/02/2024 16:09:44 11/02/19 25 11/01/2024 CBC AUTO W DIFF WBC 6.7 K/uL 4.0-10 .5 Not Available [facility] ([facility]) [address] [place], [address], 11/01/2024 15:32:39 11/02/19 25 11/01/2024 CBC AUTO W DIFF RBC 3.2 M/mm3 4.2-6. 4 low Not Available [facility] ([facility]) [address] [place], [address], 11/01/2024 15:32:39 11/02/19 25 11/01/2024 CBC AUTO W DIFF HGB 9.0 gm/dL 12.5-1 6.0 low Not Available [facility] ([facility]) [address] , [place], [address], 11/01/2024 15:32:39 11/02/19 25 11/01/2024 CBC AUTO W DIFF HCT 28.9 % 37.0-4 7.0 low Not Available [facility] ([facility]) [address] , [place], [address], 11/01/2024 15:32:39 11/02/19 25 11/01/2024 CBC AUTO W DIFF MCV 90.9 fL 78-100 Not Available [facility] ([facility]) [address] , [place], [address], 11/01/2024 15:32:39 11/02/19 25 11/01/2024 CBC AUTO W DIFF MCH 28.3 pg 27-31 Not Available [facility] ([facility]) [address] , [place], [address], 11/01/2024 15:32:39 11/02/19 25 11/01/2024 CBC AUTO W DIFF MCHC 31.1 g/dL 32-36 low Not Available [facility] ([facility]) [address] , [place], [address], 11/01/2024 15:32:39 11/02/19 25 11/01/2024 CBC AUTO W DIFF RDW 14.5 % 11.5-1 4.0 high Not Available [facility] ([facility]) [address] , [place], [address], 11/01/2024 15:32:39 11/02/19 25 11/01/2024 CBC AUTO W DIFF platelet count 257 K/uL 150-45 0 Not Available [facility] ([facility]) [address], [place], [address], 11/01/2024 15:32:39 11/02/19 25 11/01/2024 CBC AUTO W DIFF MPV 9.6 fL 6-9.5 high Not Available [facility] ([facility]) [address] [facility], [place], [address], 11/01/2024 15:32:39 11/02/19 25 11/01/2024 CBC AUTO W DIFF neutrophil% 75.3 % 43-65 high Not Available [facility] ([facility]) [address] [facility], [place], [address], 11/01/2024 15:32:39 11/02/19 25 11/01/2024 CBC AUTO W DIFF lymphocyte% 13.9 % 20.5-4 5.5 low Not Available [facility] ([facility]) [address] [facility], [place], [address], 11/01/2024 15:32:39 11/02/19 25 11/01/2024 CBC AUTO W DIFF monocyte% 7.5 % 5.5-11 .7 Not Available [facility] ([facility]) [address] [facility], [place], [address], 11/01/2024 15:32:39 11/02/19 25 11/01/2024 CBC AUTO W DIFF eosinophil% 2.2 % 0.9-2. 9 Not Available [facility] ([facility]) [address] [place], [address], 11/01/2024 15:32:39 11/02/19 25 11/01/2024 CBC AUTO W DIFF basophil% 0.4 % 0.2-1. 0 Not Available [facility] ([facility]) [address] [place], [address], 11/01/2024 15:32:39 11/02/19 25 11/01/2024 CBC AUTO W DIFF immature granulocytes % 0.7 % 0.0-0. 8 Not Available [facility] ([facility]) [address] [facility], [place], [address], 11/01/2024 15:32:39 11/02/19 25 11/01/2024 CBC AUTO W DIFF nucleated red blood cells % 0.0 % Not Available [facility] ([facility]) [address] [facility], [place], [address], 11/01/2024 15:32:39 11/02/19 25 11/01/2024 CBC AUTO W DIFF neutrophil# 5.0 K/uL 2.2-4. 8 high Not Available [facility] ([facility]) [address] [facility], [place], [address], 11/01/2024 15:32:39 11/02/19 25 11/01/2024 CBC AUTO W DIFF lymphocyte# 0.9 cell/ mcL 1.3-2. 9 low Not Available [facility] ([facility]) [address] [facility], [place], [address], 11/01/2024 15:32:39 11/02/19 25 11/01/2024 CBC AUTO W DIFF monocyte# 0.5 cell/ mcL 0.3-0. 8 Not Available [facility] ([facility]) [address] [place], [address], 11/01/2024 15:32:39 11/02/19 25 11/01/2024 CBC AUTO W DIFF eosinophil# 0.2 cell/ mcL 0-0.2 Not Available [facility] ([facility]) [address] [place], [address], 11/01/2024 15:32:39 11/02/19 25 11/01/2024 CBC AUTO W DIFF basophil# 0.0 cell/ mcL 0.0-1. 0 Not Available [facility] ([facility]) [address], [place], [address], 11/01/2024 15:32:39 11/02/19 25 11/01/2024 CBC AUTO W DIFF immature gramulocytes # 0.05 K/uL Not Available [facility] ([facility]) [address], [place], [address], 11/01/2024 15:32:39 11/02/19 25 11/01/2024 CBC AUTO W DIFF nucleated red blood cells # 0.00 K/uL Not Available [facility] ([facility]) [address], [place], [address], 11/01/2024 15:32:39 11/02/19 25 11/01/2024 CBC AUTO W DIFF manual differential NO Not Available [facility] ([facility]) [address], [place], [address], 11/01/2024 15:32:39 11/02/19 25 11/01/2024 COMP METAB OLIC PANEL sodium 139 mmol/ L 136-14 5 Not Available [facility] ([facility]) [address], [place], [address], 11/01/2024 15:54:32 11/02/19 25 11/01/2024 COMP METAB OLIC PANEL potassium 3.6 mmol/ L 3.6-5. 0 Not Available [facility] ([facility]) [address], [place], [address], 11/01/2024 15:54:32 11/02/19 25 11/01/2024 COMP METAB OLIC PANEL chloride 103 mmol/ L 98-107 Not Available [facility] ([facility]) [address], [place], [address], 11/01/2024 15:54:32 11/02/19 25 11/01/2024 COMP METAB OLIC PANEL carbon dioxide 27.8 mmol/ L 21.0-3 2.0 Not Available [facility] ([facility]) [address], [place], [address], 11/01/2024 15:54:32 11/02/19 25 11/01/2024 COMP METAB OLIC PANEL anion gap 11.8 Not Available [facility] ([facility]) [address], [place], [address], 11/01/2024 15:54:32 11/02/19 25 11/01/2024 COMP METAB OLIC PANEL glucose 112 mg/dL 70-120 Not Available [facility] ([facility]) [address], [place], [address], 11/01/2024 15:54:32 11/02/19 25 11/01/2024 COMP METAB OLIC PANEL BUN 9 mg/dL 7-18 Not Available [facility] ([facility]) [address] [facility], [place], [address], 11/01/2024 15:54:32 11/02/19 25 11/01/2024 COMP METAB OLIC PANEL creatinine 1.1 mg/dL 0.6-1. 3 Not Available [facility] ([facility]) [address] [facility], [place], [address], 11/01/2024 15:54:32 11/02/19 25 11/01/2024 COMP METAB OLIC PANEL glomerular filtration rate 52 mlper min 60- low GFR LIMIT ATION [...] albrecht ing kiney funct ion. Not Available [facility] ([facility]) [address], [place], [address], 11/01/2024 15:54:32 11/02/19 25 11/01/2024 COMP METAB OLIC PANEL osmolality (calculated) 289 mOsm/ kg 275-30 1 OSMOL ALITY IS A CALCU LATIO N UTILI ZING THE SERUM /PLAS MA SODIU M, GLUCO SE AND UREA NITRO GEN (BUN) LEVEL S. FOR THE MOST ACCUR ATE RESUL T A MEASU RED SERUM OSMOL ALITY IS SUGGE STED. Not Available [facility] ([facility]) [address] [facility], [place], [address], 11/01/2024 15:54:32 11/02/19 25 11/01/2024 COMP METAB OLIC PANEL total protein 6.5 g/dL 6.4-8. 2 Not Available [facility] ([facility]) [address] [facility], [place], [address], 11/01/2024 15:54:32 11/02/19 25 11/01/2024 COMP METAB OLIC PANEL albumin 2.2 g/dL 3.4-5. 0 low Not Available [facility] ([facility]) [address] [facility], [place], [address], 11/01/2024 15:54:32 11/02/19 25 11/01/2024 COMP METAB OLIC PANEL globulin 4.3 Not Available [facility] ([facility]) [address] [facility], [place], [address], 11/01/2024 15:54:32 11/02/19 25 11/01/2024 COMP METAB OLIC PANEL alb/glob ratio 0.5 0.7-2 low Not Available [facility] ([facility]) [address], [place], [address], 11/01/2024 15:54:32 11/02/19 25 11/01/2024 COMP METAB OLIC PANEL calcium 8.5 mg/dL 8.5-10 .5 Not Available [facility] ([facility]) [address] [facility], [place], [address], 11/01/2024 15:54:32 11/02/19 25 11/01/2024 COMP METAB OLIC PANEL bilirubin total 0.40 mg/dL 0.10-1 .00 Not Available [facility] ([facility]) [address] [facility], [place], [address], 11/01/2024 15:54:32 11/02/19 25 11/01/2024 COMP METAB OLIC PANEL AST (SGOT) 33 U/L 0-37 Not Available [facility] ([facility]) [address] [facility], [place], [address], 11/01/2024 15:54:32 11/02/19 25 11/01/2024 COMP METAB OLIC PANEL ALT (SGPT) 11 U/L 0-65 Not Available [facility] ([facility]) [address] [facility], [place], [address], 11/01/2024 15:54:32 11/02/19 25 11/01/2024 COMP METAB OLIC PANEL alk phosphatase 327 U/L 46-116 high Not Available [facility] ([facility]) [address] [facility], [place], [address], 11/01/2024 15:54:32 11/02/19 25 11/03/2024 CEA cea 86.4 NG/mL 0.0-4. 7 high Nonsm okers <3.9 Smoke rs <5.6 . Lois Diagn ostic s Elect lois milum inesc ence Immun oassa y (ECLI A) . Value s obtai lexi with diffe rent assay metho ds or kits canno t be used inter albrecht eably . Resul ts canno t be inter prete d as absol false pass evide nce of the prese nce or absen ce of [facility]. Perfo rmed at: [facility] [address], [place] [address] Lab Direc tor: Tate staton PhD, Phone : [phone] Not Available [facility] ([facility]) [address] [facility], [place], [address], 11/03/2024 13:11:48 07/28/19 25 07/28/2024 CT ABD pel w/ (IV [facility] [address] [place] [address] Phone: Fax: Name: VICKY MCMAHAN Exam Date: : [birth year] Age 78 years Gender : F Access ion: [id number] 2023 Physic jesus: HANNA PARKER Facili ty: [facility] Facili ty HSV: Outpat ient Exam: CT ABD PEL W/ (IV ^ ORAL) CT ABDOME N PELVIS WITH IV CONTRA ST 025 2:46 PM [facility] INDICA TION: Female , 78 [...] of colon carcin rox. 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 Legall y authen ticate d by VAMSHI Trevino RAFAEL 0 07-28 15:46: 13 CC'ed Logic: Orderi ng Provid er: DIGNA LUGO Attend ing Provid er: DIGNA LUGO Referr ing Provid er: DIGNA LUGO Admitt ing Provid er: DIGNA taylor[address] [place] [address] - Physical Therapy [address] [facility], [place], [address], 07/29/2024 11:36:27 08/02/19 25 07/28/2024 CT, chest , w/ contr ast [facility] [address] [place] [address] Phone: Fax: Name: VICKY MCMAHAN Exam Date: 025 : [birth year] Age 78 years Gender : F Access ion: [id number] 2023 Physic jesus: HANNA PARKER Facili ty: [facility] Facili ty HSV: [...] Thank you for referr VICKY Delgado to [facility] al. Legall y authen ticate d by AVIS ALBA IN 07-28 15:46: 34 CC'ed Logic: Orderi ng Provid er: DIGNA LUGO Attend ing Provid er: DIGNA LUGO Referr ing Provid er: DIGNA LUGO Admitt ing Provid er: DIGNA LUGO [address] - Physical Therapy [address] [place] [address], [address], 08/01/2024 10:49:34 Result Notes Documentation Provider Name and Address Organization Details Recorded Time Ct, Chest, W/ Contrast : [place] [address] Name: VICKY ROBLERO Exam Date: 07/28/2024 : 1945 Age 78 years Gender: F Physician: HANNA FOURNIER Facility: [facility] Facility HSV: Outpatient Exam: CT CHEST W EXAM: CT Chest With Intravenous Contrast CLINICAL HISTORY: The patient is 78 years old and is Female; malignant neoplasm of ascending colon TECHNIQUE: Axial computed tomography images of the chest with intravenous contrast. Sagittal and coronal reformatted images were created and reviewed. This CT exam was performed using one or more of the following dose reduction techniques: automated exposure control, adjustment of the mA and/or kV according to patient size, and/or use of iterative reconstruction technique. COMPARISON: June 09, 2023 CT chest. FINDINGS: LUNGS: Calcified granuloma in the lingula. No suspicious or enlarging pulmonary nodule/mass. No consolidation. PLEURAL SPACE: Unremarkable. No pneumothorax. No significant effusion. HEART: The heart is not enlarged. No significant pericardial effusion. Coronary artery calcifications. BONES/JOINTS: Unremarkable. No acute fracture. No dislocation. SOFT TISSUES: Unremarkable. VASCULATURE: See above. LYMPH NODES: Unremarkable. No enlarged lymph nodes. UPPER ABDOMEN: See same day CT abdomen pelvis for findings below the diaphragm. TUBES, LINES AND DEVICES: Right chest port tip is at the cavoatrial junction. IMPRESSION: 1. No evidence of metastatic disease in the chest. 2. Coronary artery calcifications. Electronically signed by: Robert Underwood MD 08/01/2024 10:35 AM [facility] Dictated By: Robert Underwood Transcribed By: Transcribed On: 07/28/2024 3:46 PM Electronically signed by: Robert Underwood 07/28/2024 Thank you for referring VICKY ROBLERO to [facility]. Legally authenticated by ZAHEER GOODWIN 2024-07-28 15:46:34 CC'ed Logic: Ordering Provider: IRLANDA LUGO Attending Provider: IRLANDA LUGO Referring Provider: IRLANDA LUGO Admitting Provider: [address], [place], [address], [place] - [facility] [place] & [place] 08/01/2024 10:49:34 Problems Name Problem SNOMED Code Status Onset Date Resolution Date Notes Provider Name and Address Organization Details Recorded Time Headache 97852198 Active 2024 Christine yusuf, [place] - [facility] [place] & [place] 5 10:27:12 Metastatic malignant neoplasm to liver 91589212 Active [address], [place], [address] , [place] [facility] [place] 3 14:27:25 Mass of colon 962712347 Active [address], [place], [address] , [place] [facility] [place] 3 14:27:30 Anemia 748474296 Active [address], [place], [address] , [place] - [facility] & [place] 3 14:27:36 Nausea and vomiting 46706236 Active 2022 Ghassan Lieberman PA-C [address], [place], [address] , [place] - [facility] & [place] 3 14:27:46 Unintentional weight loss 531562213 Active 2022 Ghassan Lieberman PA-C [address], [place], [address] , [place] - [facility] & [place] 3 16:13:07 Night sweats 95227107 Active 2022 Ghassan Lieberman PA-C [address], [place], [address] , [place] - [facility] & [place] 3 16:13:12 Problem Notes Documentation Provider Name and Address Organization Details Recorded Time Oncology Patient Navigator : ONN contacted pt after apt with medical oncology. Pt states she is trying to figure out treatment. Pt states she doesn't know how long she is going to make it on treatment due to side effects. ONN provided support to pt and pt was appreciative. Pt denies any questions.concerns at this time. ONN encouraged pt to reach out may any needs/concerns arise. Christine yusuf CURT Lai [facility] & [place] 08/03/2024 14:10:12 Oncology Patient Navigator : ONN met with pt at [facility]. Pt states she is doing well and inquired about her cancer care policy. ONN faxed paperwork to [facility] on 07/26. Pt states that cancer policy states she has not received anything. Pt DIL gave me contact infomation. [phone]. Pt cancer policy number is [id number]. ONN will resend information to cancer policy. Pt denies any questions/concerns at this time. ONN encouraged pt to reach out may any needs/concerns arise. Christine yusuf CURT [facility] & [place] 08/10/2024 13:29:49 Oncology Patient Navigator : SW met with the pt and the pt discussed that she had fallen. The pt shared that she had told the provider this. Additionally, the pt reported that she did not want Home Health, nor a hospital bed. The pt reported that she is doing treatment because her grand-daughter asked her to do it. SW asked if she wanted the SW to talk with the pts grand-daughter and the pt reported that she did not. SW provided active listening and support to pt as well and unbiased regard to the pt for her wishes. The pt expressed concern for her daughters health and her cardiac condition. The SW discussed mindfulness with the pt and encouraged her to reach out for her needs. The pt expressed appreciation and intent to do so. SW to offer supports ongoing. Pt requested that the SW remind the ONN about submitted the claims to her insurance, because they had told the pt they had not received anything. SW spoke with the ONN who reported that she would resubmit the documents. CURT Johnston - BERNIE [facility] & [place] 08/15/2024 14:22:48 Oncology Patient Navigator : ONN met with pt in infusion who states that she is feeling okay. Pt fell a week or so ago and has been c/o a headache since. SANGITA ordered stat head CT but they were unable to perform until tomorrow. Pt states that she is unable to come back tomorrow due to lack of transportation. Pt states that her headache is resolved and that she will come back in for the CT if it comes back or gets worse. ONN advised pt that if she experienced any lighthead, dizziness, slurred speech, facial drooping, one sided weakness or blurry vision she needed to go to the ER. Pt verbalized understanding. ONN encouraged pt to reach out may any needs/concerns arise. CURT Muller - [place] & [place] 08/25/2024 14:45:18 Oncology Patient Navigator : Pt daughter contacted ONN yesterday with request of getting a hospital bed. Pt daughter said pt is too weak to get up and down by herself and needs a hospital bed. ONN to order hospital bed for pt. Pt would like to stop chemotherapy treatments as they are taking a toll on her body. ONN updated infusion. ONN offered home health and hospice services which pt declines at this time. Pt daughter contacted ONN this morning with reports that pt has altered mental status and is requesting a nurse to come to evaluate the pt. ONN educated pt daughter that a nurse from the office could not come out to the house but ONN could arrange home health to come visit pt. Pt daughter declined at this time. ONN offered fluids for dehydration but pt daughter states that she does not think pt will be able to make the [address] ONN advised pt daughter to take pt to nearest ER if she could not make the drive to the office. Pt daughter verbalized understanding. ONN encouraged pt to reach out may any needs/concerns arise. CURT Muller - [place] & [place] 09/06/2024 10:04:19 Oncology Patient Navigator : ONN contacted pt this afternoon to check in and see how she was doing after discharge from [facility]. Pt states she is doing much better, she has her hospital bed and a shower chair. Pt states that she is able to move around and eat better. Pt requesting her DNR paperwork, ONN consulted [facility] about previously filled out MOST form and need for advanced directive. Pt would like to come up to the clinic and visit with staff for the last time. Pt very appreciative of all the staff of [facility]. ONN encouraged pt to reach out may any needs/concerns arise. CURT Muller & [place] 09/14/2024 15:13:43 Oncology Patient Navigator : ONN met with pt at [facility] [place] with medical oncology. Pt states she is doing well at this time. Hospice consult was briefly discussed and pt declined at this time. ONN encouraged pt to reach out may any needs/concerns arise. CURT Muller - [facility] Yolanda 11/01/2024 13:52:48 Procedures Surgical History Date Name Laterality Status Provider Name and Address Organization Details Recorded Time 04/29/20 23 Venipuncture completed Hanna Fournier PA-C [address] , [place], [address], CUR[facility] & [place] 04/27/2023 15:05:29 04/15/20 23 Venipuncture [facility] & [place] 04/15/2023 15:24:55 hysterectomy completed Laurel ELIAS [facility] & [place] 03/11/2023 15:30:22 extraction of cataract completed Laurel Lai [facility] & [place] 03/11/2023 15:30:36 excision of colon completed Loree Tadeo [facility] & [place] 04/21/2023 11:32:07 Imaging Results None recorded. Procedure Notes None recorded. Medical Equipment None Reported. Allergies Allergen ID Allergen Name Allergen Category Reaction Reaction Severity Criticality Documentation Date Start Date Code Code System Note Provider Name and Address Organization Details Recorded Time 51930 tetracycl ine medicatio n hives Not available [facility] 02/19/2023 76928 RxNorm CURT Johnston [facility] & [place] 14:03:33 Medications Name Sig Start Date Stop [...] Not Available Not Available Not Avai labcuong ondansetron HCl 8 mg tablet TAKE 1 [...] by transderm al route for 30 days. 08/015 completed Not Available Not Available Not Available [...] Updated DateTime 5 162.56 cm 35.2 kg/m2 32142.4 4 g 97.7 [degF] 60 /min 99 % 99 % 159 mm[Hg] 61 mm[Hg] [facility] [place] 5 12:08:08 Date Recorded Body height Body mass index (BMI) Body weight Body temperature Oxygen saturation Oxygen saturation in Arterial blood by Pulse oximetry Heart rate Respiratory rate Systolic blood pressure Diastolic blood pressure Provider Name and Address Organization Details Last Updated DateTime 5 162.56 cm 36 kg/m2 96674.4 g 97 [degF] 90 % 90 % 57 /min 18 /min 143 mm[Hg] 68 mm[Hg] [facility] [place] 5 10:00:38 Date Recorded Body height Body mass index (BMI) Body weight Body temperature Oxygen saturation Oxygen saturation in Arterial blood by Pulse oximetry Heart rate Respiratory rate Systolic blood pressure Diastolic blood pressure Provider Name and Address Organization Details Last Updated DateTime 5 162.56 cm 35.2 kg/m2 99834.4 4 g 97.5 [degF] 98 % 98 % 20 /min 83 /min 140 mm[Hg] 68 mm[Hg] [facility] [place] 5 09:42:28 Date Recorded Body height Body temperature Oxygen saturation Oxygen saturation in Arterial blood by Pulse oximetry Heart rate Respiratory rate Systolic blood pressure Diastolic blood pressure Provider Name and Address Organization Details Last Updated DateTime 5 162.56 cm 97.2 [degF] 95 % 95 % 141 /min 20 /min 137 mm[Hg] 86 mm[facility]Hg[facility] & [place] 5 12:09:03 Date Recorded Body height Body mass index (BMI) Body weight Body temperature Oxygen saturation Oxygen saturation in Arterial blood by Pulse oximetry Heart rate Systolic blood pressure Diastolic blood pressure Provider Name and Address Organization Details Last Updated DateTime 5 162.56 cm 33.5 kg/m2 24821.5 1 g 97.6 [degF] 98 % 98 % 75 /min 185 mm[Hg] 79 mm[Hg] [facility] [place] 13:16:39 Social History Question Answer Notes LastModified by [employer] Details LastModified Time Tobacco Smoking Status Never Smoker CURT Johnston [facility] & [place] 02/19/2023 14:02:59 What Is Your Level Of Caffeine Consumption? None [email or web address] Information not available 02/19/2023 What Was The Date Of Your Most Recent Tobacco Screening? 11/23/2023 [email or web address] Information not available 11/23/2023 Has Tobacco Cessation Counseling Been Provided? No [email or web address] Information not available 07/13/2023 Sex: Unknown Functional Status Question Answer Note LastModified by [employer] Details LastModified Time Do you use any illicit or recreational drugs? No [email or web address] Information not available 02/19/2023 Do you or have you ever used any other forms of tobacco or nicotine? No [email or web address] Information not available 02/19/2023 What is your level of alcohol consumption? None Information not available 02/19/2023 Mental Status None recorded. Family History Nothing Reported. Medical History No medical history recorded. Gynecological HistoryNo gynecological history recorded. Obstetrics History GPAL:G 0 P 0 0 0 0 Immunizations Vaccine Type Date Status Note Provider Nam e and Address Organization Details Recorded Time pneumococcal polysaccharide PPV23 7 completed Stephanie Maravilla CURT yusuf [facility] & [place] 12/21/2023 09:56:34 Past Encounters Encounter ID Performer Location Encounter Start Date Encounter Closed Date Diagnosis/Indication Diagnosis SNOMED-CT Code Diagnosis ICD10 Code Diagnosis Note [id number] Ghassan Lieberman PA-C [facility] [address] [address] 02/19/2023 13:50:39 02/19/2023 14:35:58 Metastatic malignant neoplasm to liver 67453410 C78.7 Mass of colon 703360581 R19.09 Anemia 913958477 D64.9 Nausea and vomiting 1693 1999 R11.2 Unintentio nal weight loss 117275682 R63.4 Night sweats 93835598 R6 1 [id number] Addy Gonzales MD [facility] [address] [place] [address] 03/10/2023 13:05:53 03/10/2023 14:02:07 Mass of colon 093617010 R19.09 Ascending colon. Patient has had ongoing [...] and possibilit y of ostomy. Liver mass 253258602 R16 .0 [id number] Tomy King MD [facility] [address] [place] [address] 03/11/2023 14:55:42 03/11/2023 16:34:54 Malignant tumor of ascending colon 636831733 C18.2 CT scan of the abdomen and [...] for evaluation . Discussed molecular profiling with Jose Martinus to assess for circulatin g tumor DNA on blood sample. Will also perform additional testing on tumor sample was obtained. Discussed with patient biopsy of liver lesion for tissue diagnosis. Concern patient has metastatic colon cancer and would be stage IV. Will follow-up tissue sampling. Metastatic malignant neoplasm to liver 49791752 C78.7 CT scan of the abdomen and [...] colon cancer. Will follow-up tissue biopsy. Nausea 378809658 R11.0 As needed Zofran and Phenergan prescribed . Pain due t o neoplastic disease 4764012086 9102 G89.3 Right upper quadrant pain secondary to liver metastasis . Patient currently taking Tylenol. Discussed as needed oxycodone to limit Tylenol exposure. Anemia 853020954 D64.9 Right-side d colon mass concerning for malignancy . Will assess for any signs of iron deficiency . Most recent hemoglobin at 8.0. Concern for blood loss from colon mass. Patient reports dark stools. Adopted 800349898 Z62.89 8 Patient is adopted and discussed hereditary gene panel. Patient does have family history of her son having bladder cancer. [id number] Tomy King MD [facility] [address] [place] [address] 04/15/2023 14:08:30 04/15/2023 15:42:28 Malignant tumor of ascending colon 523996207 C18.2 CT scan of the abdomen and [...] 8.2 hematocrit 29.0. MCV 67.9. Platelet count 668594. Normal cell differenti al. Low serum folate [...] metastatic colorectal cancer. Discussed chemothera py with [place] based regimen with 5FU Leucovorin if KRAS wild type would also add Vectibix to therapy. Will follow-up. Patient returns on April 15, 2023. Will start chemothera py as soon as possible. Metastatic malignant neoplasm to liver 32695048 C78.7 CT scan of the abdomen and [...] Findings concerning for metastatic colon cancer. Nausea 416744190 R11.0 As needed Zofran and Phenergan prescribed . Pain due t o neoplastic disease 1339625186 9102 G89.3 Right upper quadrant pain secondary to liver metastasis . Patient currently taking Tylenol. Discussed as needed oxycodone to limit Tylenol exposure. Anemia 322234514 D64.9 Right-side d colon mass concerning for malignancy . Will assess for any signs of iron deficiency . Most recent hemoglobin at 8.0. Concern for blood loss from colon mass. Patient reports dark stools. Adopted 419925429 Z62.89 8 Patient is adopted and discussed hereditary gene panel. Patient does have family history of her son having bladder cancer. Will send [facility] hereditary panel. [id number] Addy Gonzales MD [facility] [address] [place] [address] 04/21/2023 11:07:18 04/21/2023 11:47:40 Malignant tumor of ascending colon 486616419 C18.2 Patient has follow-up with Oncology, is debating if she wishes any further treatment at this point. I have recommende d continuing lifting restrictio ns for another 2 weeks, then can resume activity as tolerated. Patient can follow-up with me if she has ongoing issues or questions. [id number] Hanna Fournier PA-C [facility] [address] [place] [address] 04/29/2023 10:08:09 04/29/2023 10:08:41 Malignant tumor of ascending colon 831239154 C18.2 CT scan of the abdomen and [...] 8.2 hematocrit 29.0. MCV 67.9. Platelet count 051143. Normal cell differenti al. Low serum folate [...] metastatic colorectal cancer. Discussed chemothera py with [place] based regimen with 5FU Leucovorin if [...] improvemen t. Metastatic malignant neoplasm to liver 82215301 C78.7 CT scan of the abdomen and [...] Findings concerning for metastatic colon cancer. Nausea 414947287 R11.0 As needed Zofran and Phenergan prescribed . Pain due t o neoplastic disease 3950336176 9102 G89.3 Right upper quadrant pain secondary to liver metastasis . Patient currently taking Tylenol. Discussed as needed oxycodone to limit Tylenol exposure. Anemia 726142973 D64.9 Right-side d colon mass concerning for malignancy . Will assess for any signs of iron deficiency . Most recent hemoglobin at 8.0. Concern for blood loss from colon mass. Patient reports dark stools. Adopted 827453066 Z62.89 8 Patient is adopted and discussed hereditary gene panel. Patient does have family history of her son having bladder cancer. Will send [facility] hereditary panel. Antineopla stic chemotherapy regimen 159709648 Z51.11 Cycle 1 5FU Leucovorin Vectibix on April 29, 2023. Hypomagnesemia 310741313 E83.42 Patient returns on April 29, 2023. Magnesium level is 1.7 today. Will give 1 g magnesium IV. Hypokalemia 20483268 E87 .6 Patient returns on April 29, 2023. Potassium is low at 2.9. Will send prescripti on for potassium 20 mEq daily. Will follow-up labs again next week. Loss of appetite 3133878 6 R63.0 Patient has had nausea and decreased appetite since her cancer diagnosis. She can not tolerate her nutritiona l drinks. She does take Phenergan with relief. She continues to lose weight. Will send prescripti on for Megace. [id number] Hanna Fournier PA-C [facility] [address] [place] [address] 05/04/2023 09:35:22 05/04/2023 09:45:11 Malignant tumor of ascending colon 371824504 C18.2 CT scan of the abdomen and [...] 8.2 hematocrit 29.0. MCV 67.9. Platelet count 859576. Normal cell differenti al. Low serum folate [...] metastatic colorectal cancer. Discussed chemothera py with [place] based regimen with 5FU Leucovorin if [...] has started on Megace. Will follow-[facility] for [facility]. Metastatic malignant neoplasm to liver 48301446 C78.7 CT scan of the abdomen and [...] Findings concerning for metastatic colon cancer. Nausea 923091862 R11.0 As needed Zofran and Phenergan prescribed . Pain due t o neoplastic disease 3522484111 9102 G89.3 Right upper quadrant pain secondary to liver metastasis . Patient currently taking Tylenol. Discussed as needed oxycodone to limit Tylenol exposure. Anemia 203486577 D64.9 Right-side d colon mass concerning for malignancy . Will assess for any signs of iron deficiency . Most recent hemoglobin at 8.0. Concern for blood loss from colon mass. Patient reports dark stools. Adopted 268240009 Z62.89 8 Patient is adopted and discussed hereditary gene panel. Patient does have family history of her son having bladder cancer. Will send [facility] hereditary panel. Antineopla stic chemotherapy regimen 271575647 Z51.11 Cycle 1 5FU Leucovorin Vectibix on April 29, 2023. Cycle 2 5FU Leucovorin Vectibix on May 04, 2023. Hypomagnesemia 580719549 E83.42 Patient returns on April 29, 2023. Magnesium level is 1.7 today. Will give 1 g magnesium IV. Hypokalemia 42491698 E87 .6 Patient returns on April 29, 2023. Potassium is low at 2.9. Will send prescripti on for potassium 20 mEq daily. Will follow-up labs again next week. Loss of appetite 8766849 6 R63.0 Patient has had nausea and decreased appetite since her cancer diagnosis. She can not tolerate her nutritiona l drinks. She does take Phenergan with relief. She continues to lose weight. Will send prescripti on for Megace. [id number] Hanna Fournier PA-C [facility] [address] [place] [address] 05/11/2023 09:04:44 05/11/2023 13:02:16 Malignant tumor of ascending colon 355146382 C18.2 CT scan of the abdomen and [...] 8.2 hematocrit 29.0. MCV 67.9. Platelet count 365114. Normal cell differenti al. Low serum folate [...] metastatic colorectal cancer. Discussed chemothera py with [place] based regimen with 5FU Leucovorin if [...] new prescripti on. Will follow-up for angela t. Metastatic malignant neoplasm to liver 64718139 C78.7 CT scan of the abdomen and [...] Findings concerning for metastatic colon cancer. Nausea 643791068 R11.0 As needed Zofran and Phenergan prescribed . Pain due t o neoplastic disease 2272945567 9102 G89.3 Right upper quadrant pain secondary to liver metastasis . Patient currently taking Tylenol. Discussed as needed oxycodone to limit Tylenol exposure. Anemia 514190403 D64.9 Right-side d colon mass concerning for malignancy . Will assess for any signs of iron deficiency . Most recent hemoglobin at 8.0. Concern for blood loss from colon mass. Patient reports dark stools. Adopted 327012903 Z62.89 8 Patient is adopted and discussed hereditary gene panel. Patient does have family history of her son having bladder cancer. Will send [facility] hereditary panel. Antineopla stic chemotherapy regimen 963866089 Z51.11 Cycle 1 5FU Leucovorin Vectibix on April 29, 2023. Cycle 2 5FU Leucovorin Vectibix on May 04, 2023. Cycle 3 5FU Leucovorin Vectibix on May 11, 2023. Hypomagnesemia 036801254 E83.42 Patient returns on April 29, 2023. Magnesium level is 1.7 today. Will give 1 g magnesium IV. Hypokalemia 12608003 E87 .6 Patient returns on April 29, 2023. Potassium is low at 2.9. Will send prescripti on for potassium 20 mEq daily. Will follow-up labs again next week. Loss of appetite 0140382 6 R63.0 Patient has had nausea and decreased appetite since her cancer diagnosis. She can not tolerate her nutritiona l drinks. She does take Phenergan with relief. She continues to lose weight. Will send prescripti on for Megace. Acute conjunctivitis 537 24362 H10.32 Patient returns on May 11, 2023. She has had erythema, conjuntiva inflammati on, discharged and matted left eye. She has been using warm compresses . Will send prescripti on for eye drops for conjunctiv itis. Diarrhea 03104977 R19.7 She has had diarrhea since night. She has tried Imodium and Pepto. Discussed taking Lomotil instead. [id number] Addy Gonzales MD [facility] [address] [place] [address] 05/07/2023 13:50:57 05/07/2023 15:14:30 Malignant tumor of ascending colon 662013432 C18.2 I have scheduled the patient for venous port placement. informed consent was obtained. Risks of the procedure including bleeding, infection, catheter complicati ons and damage to surroundin g structures were discussed [id number] Hanna Fournier PA-C [facility] [address] [place] [address] 06/02/2023 09:27:10 06/02/2023 10:20:16 Malignant tumor of ascending colon 792402862 C18.2 CT scan of the abdomen and [...] 8.2 hematocrit 29.0. MCV 67.9. Platelet count 596808. Normal cell differenti al. Low serum folate [...] metastatic colorectal cancer. Discussed chemothera py with [place] based regimen with 5FU Leucovorin if [...] using prescripti on eye drops with angela portillo. Discussed likely secondary to chemothera py and following up with optometramy portillo. Will follow up labs today. Metastatic malignant neoplasm to liver 92867939 C78.7 CT scan of the abdomen and [...] Findings concerning for metastatic colon cancer. Nausea 458222921 R11.0 As needed Zofran and Phenergan prescribed . Pain due t o neoplastic disease 8963885899 9102 G89.3 Right upper quadrant pain secondary to liver metastasis . Patient currently taking Tylenol. Discussed as needed oxycodone to limit Tylenol exposure. Anemia 857138716 D64.9 Right-side d colon mass concerning for malignancy . Will assess for any signs of iron deficiency . Most recent hemoglobin at 8.0. Concern for blood loss from colon mass. Patient reports dark stools. Adopted 187498911 Z62.89 8 Patient is adopted and discussed hereditary gene panel. Patient does have family history of her son having bladder cancer. Will send [facility] hereditary panel. Antineopla stic chemotherapy regimen 703080690 Z51.11 Cycle 1 5FU Leucovorin Vectibix on April 29, 2023. Cycle 2 5FU Leucovorin Vectibix on May 04, 2023. Cycle 3 5FU Leucovorin Vectibix on May 11, 2023. Hypomagnesemia 380057613 E83.42 Patient returns on April 29, 2023. Magnesium level is 1.7 today. Will give 1 g magnesium IV. Hypokalemia 92696846 E87 .6 Patient returns on April 29, 2023. Potassium is low at 2.9. Will send prescripti on for potassium 20 mEq daily. Will follow-up labs again next week. Loss of appetite 7387121 6 R63.0 Patient has had nausea and decreased appetite since her cancer diagnosis. She can not tolerate her nutritiona l drinks. She does take Phenergan with relief. She continues to lose weight. Will send prescripti on for Megace. Acute conjunctivitis 537 08825 H10.32 Patient returns on May 11, 2023. She has had erythema, conjuntiva inflammati on, discharged and matted left eye. She has been using warm compresses . Will send prescripti on for eye drops for conjunctiv itis. Diarrhea 35064597 R19.7 Diarrhea has resolved. Patient with recent C diff Deep venou s thrombosis 308274198 I82.409 Patient developed right lower extremity pain and edema. Venous duplex on May 28, 2023 with evidence of deep vein thrombosis . Started on Eliquis 5 mg 1 tab p.o. b.i.d.. Did not start with Eliquis starter pack due to recent bleeding. Patient had a DVT and a PE in 1990 after her hysterecto my. Will order hypercoagu lable panel today. Anxiety 33198244 F41.9 Patient has had increased anxiety. She is tearful and crying during her visit today due to all of her health problems. She does not want to take an antidepres melina at this time. Discussed low-dose Ativan. Muscle weakness 73253726 M62.81 Patient is feeling weak and is requesting a lift chair. Will see if insurance will cover. Discussed home health but patient declines at this time. [id number] Tomy King MD [facility] [address] [place] [address] 06/08/2023 09:23:07 06/08/2023 11:39:14 Malignant tumor of ascending colon 138006286 C18.2 CT scan of the abdomen and [...] 8.2 hematocrit 29.0. MCV 67.9. Platelet count 593085. Normal cell differenti al. Low serum folate [...] labs today. Metastatic malignant neoplasm to liver 02248020 C78.7 CT scan of the abdomen and [...] Findings concerning for metastatic colon cancer. Nausea 318094340 R11.0 As needed Zofran and Phenergan prescribed . Pain due t o neoplastic disease 8885915859 9102 G89.3 Right upper quadrant pain secondary to liver metastasis . Patient currently taking Tylenol. Discussed as needed oxycodone to limit Tylenol exposure. Anemia 883630329 D64.9 Right-side d colon mass concerning for malignancy . Will assess for any signs of iron deficiency . Most recent hemoglobin at 8.0. Concern for blood loss from colon mass. Patient reports dark stools. Adopted 600360700 Z62.89 8 Patient is adopted and discussed hereditary gene panel. Patient does have family history of her son having bladder cancer. Will send [facility] hereditary panel. Antineopla stic chemotherapy regimen 093505583 Z51.11 Week 1 5FU Leucovorin Vectibix on [...] return for cycle 2 day 1 Hypomagnesemia 831605889 E83.42 Patient returns on April 29, 2023. Magnesium level is 1.7 today. Will give 1 g magnesium IV. Hypokalemia 71308499 E87 .6 Patient returns on April 29, 2023. Potassium is low at 2.9. Will send prescripti on for potassium 20 mEq daily. Will follow-up labs again next week. Loss of appetite 8148656 6 R63.0 Patient has had nausea and decreased appetite since her cancer diagnosis. She can not tolerate her nutritiona l drinks. She does take Phenergan with relief. She continues to lose weight. Will send prescripti on for Megace. Acute conjunctivitis 537 77930 H10.32 Patient returns on May 11, 2023. She has had erythema, conjuntiva inflammati on, discharged and matted left eye. She has been using warm compresses . Will send prescripti on for eye drops for conjunctiv itis.Will send in repeat prescripti on for eye drops. Diarrhea 53961889 R19.7 Diarrhea has resolved. Patient with recent C diff Deep venou s thrombosis 178833059 I82.409 Patient developed right lower extremity pain and edema.Veno us duplex on May 28, 2023 with evidence of deep vein thrombosis . Started on Eliquis 5 mg 1 tab p.o. b.i.d.. Did not start with Eliquis starter pack due to recent bleeding. Patient had a DVT and a PE in 1990 after her hysterecto my. Anxiety 66229056 F41.9 Patient has had increased anxiety. She is tearful and crying during her visit today due to all of her health problems. She does not want to take an antidepres melina at this time. Discussed low-dose Ativan. Improvemen t in mood overall on visit from June 08, 2023. [id number] Addy Gonzales MD [facility] [address] [place] [address] 06/05/2023 10:23:30 06/05/2023 11:32:28 Malignant tumor of ascending colon 698588015 C18.2 Needs port placed, cannot do this [...] can save her the long drive in. [id number] Tomy King MD [facility] [address] [place] [address] 06/22/2023 10:06:43 06/22/2023 12:44:59 Malignant tumor of ascending colon 893492479 C18.2 CT scan of the abdomen and [...] 8.2 hematocrit 29.0. MCV 67.9. Platelet count 081743. Normal cell differenti al. Low serum folate [...] next month. Metastatic malignant neoplasm to liver 46786946 C78.7 CT scan of the abdomen and [...] Findings concerning for metastatic colon cancer. Nausea 824287358 R11.0 As needed Zofran and Phenergan prescribed . Pain due t o neoplastic disease 7699314541 9102 G89.3 Right upper quadrant pain secondary to liver metastasis . Patient currently taking Tylenol. Discussed as needed oxycodone to limit Tylenol exposure. Anemia 875644440 D64.9 Right-side d colon mass concerning for malignancy . Will assess for any signs of iron deficiency . Most recent hemoglobin at 8.0. Concern for blood loss from colon mass. Patient reports dark stools. Adopted 319772032 Z62.89 8 Patient is adopted and discussed hereditary gene panel. Patient does have family history of her son having bladder cancer. Will send [facility] hereditary panel. Antineopla stic chemotherapy regimen 998927748 Z51.11 Week 1 5FU Leucovorin Vectibix on [...] and Vectibix on July 06, 2023. Hypokalemia 16807889 E87 .6 Patient returns on April 29, 2023. Potassium is low at 2.9. Will send prescripti on for potassium 20 mEq daily. Will follow-up labs again next week. Loss of appetite 7303848 6 R63.0 Patient has had nausea and decreased appetite since her cancer diagnosis. She can not tolerate her nutritiona l drinks. She does take Phenergan with relief. She continues to lose weight. Will send prescripti on for Megace. Acute conjunctivitis 537 31327 H10.32 Patient returns on May 11, 2023. She has had erythema, conjuntiva inflammati on, discharged and matted left eye. She has been using warm compresses . Will send prescripti on for eye drops for conjunctiv itis.Will send in repeat prescripti on for eye drops. Diarrhea 68043115 R19.7 Diarrhea has resolved. Patient with recent C diff Deep venou s thrombosis 219908560 I82.409 Patient developed right lower extremity pain and edema.Veno us duplex on May 28, 2023 with evidence of deep vein thrombosis . Started on Eliquis 5 mg 1 tab p.o. b.i.d.. Did not start with Eliquis starter pack due to recent bleeding. Patient had a DVT and a PE in 1990 after her hysterecto my. Anxiety 25343928 F41.9 Patient has had increased anxiety. She is tearful and crying during her visit today due to all of her health problems. She does not want to take an antidepres melina at this time. Discussed low-dose Ativan. Improvemen t in mood overall on visit from June 08, 2023. [id number] Tomy King MD [facility] [address] [place] [address] 07/13/2023 09:25:11 07/13/2023 10:53:59 Malignant tumor of ascending colon 209627536 C18.2 CT scan of the abdomen and [...] 8.2 hematocrit 29.0. MCV 67.9. Platelet count 611198. Normal cell differenti al. Low serum folate [...] for now. Metastatic malignant neoplasm to liver 79439412 C78.7 CT scan of the abdomen and [...] Findings concerning for metastatic colon cancer. Nausea 821524421 R11.0 As needed Zofran and Phenergan prescribed . Pain due t o neoplastic disease [id number] 9102 G89.3 Right upper quadrant pain secondary to liver metastasis . Patient currently taking Tylenol. Discussed as needed oxycodone to limit Tylenol exposure. Anemia 993504523 D64.9 Right-side d colon mass concerning for malignancy . Will assess for any signs of iron deficiency . Most recent hemoglobin at 8.0. Concern for blood loss from colon mass. Patient reports dark stools. Adopted [id number] Z62.89 8 Patient is adopted and discussed hereditary gene panel. Patient does have family history of her son having bladder cancer. Will send [facility] hereditary panel. Antineopla stic chemotherapy regimen 217185022 Z51.11 Week 1 5FU Leucovorin Vectibix on April 29, 2023.Week 2 5FU Leucovorin Vectibix on May 04, 2023.Week 3 5FU Leucovorin Vectibix on May 11, 2023.Week 4 5FU Leucovorin and Vectibix on June 08, 2023.Day 29 of 5FU Leucovorin and Vectibix on June 22, 2023. Cycle 2 day 1 of 5FU Leucovorin and Vectibix on July 13, 2023. Hypokalemia 10557514 E87 .6 Patient returns on April 29, 2023. Potassium is low at 2.9. Will send prescripti on for potassium 20 mEq daily. Will follow-up labs again next week. Loss of appetite 7635091 6 R63.0 Patient has had nausea and decreased appetite since her cancer diagnosis. She can not tolerate her nutritiona l drinks. She does take Phenergan with relief. She continues to lose weight. Will send prescripti on for Megace. Acute conjunctivitis 537 60733 H10.32 Patient returns on May 11, 2023. She has had erythema, conjuntiva inflammati on, discharged and matted left eye. She has been using warm compresses . Will send prescripti on for eye drops for conjunctiv itis.Will send in repeat prescripti on for eye drops. Diarrhea 17918721 R19.7 Diarrhea has resolved. Patient with recent C diff Deep venou s thrombosis 333296440 I82.411 Patient developed right lower extremity pain and edema.Veno us duplex on May 28, 2023 with evidence of deep vein thrombosis . Started on Eliquis 5 mg 1 tab p.o. b.i.d.. Did not start with Eliquis starter pack due to recent bleeding. Patient had a DVT and a PE in 1990 after her hysterecto my. Anxiety 05145228 F41.9 Patient has had increased anxiety. She is tearful and crying during her visit today due to all of her health problems. She does not want to take an antidepres melina at this time. Discussed low-dose Ativan. Improvemen t in mood overall on visit from June 08, 2023. [id number] Hanan Fournier PA-C [facility] [address] [place] [address] 07/27/2023 09:02:25 07/27/2023 10:25:44 Malignant tumor of ascending colon 655748938 C18.2 CT scan of the abdomen and [...] 8.2 hematocrit 29.0. MCV 67.9. Platelet count 593825. Normal cell differenti al. Low serum folate [...] Will follow-up Metastatic malignant neoplasm to liver 03816315 C78.7 CT scan of the abdomen and [...] Findings concerning for metastatic colon cancer. Nausea 823407985 R11.0 As needed Zofran and Phenergan prescribed . Pain due t o neoplastic disease 6398196978 9102 G89.3 Right upper quadrant pain secondary to liver metastasis . Patient currently taking Tylenol. Discussed as needed oxycodone to limit Tylenol exposure. Anemia 548472852 D64.9 Right-side d colon mass concerning for malignancy . Will assess for any signs of iron deficiency . Most recent hemoglobin at 8.0. Concern for blood loss from colon mass. Patient reports dark stools. Adopted 484458400 Z62.89 8 Patient is adopted and discussed hereditary gene panel. Patient does have family history of her son having bladder cancer. Will send [facility] hereditary panel. Antineopla stic chemotherapy regimen 885476184 Z51.11 Week 1 5FU Leucovorin Vectibix on [...] and Vectibix on July 27, 2023. Hypokalemia 41947996 E87 .6 Patient returns on April 29, 2023. Potassium is low at 2.9. Will send prescripti on for potassium 20 mEq daily. Will follow-up labs again next week. Loss of appetite 8994624 6 R63.0 Patient has had nausea and decreased appetite since her cancer diagnosis. She can not tolerate her nutritiona l drinks. She does take Phenergan with relief. She continues to lose weight. Will send prescripti on for Megace. Acute conjunctivitis 537 92852 H10.32 Patient returns on May 11, 2023. She has had erythema, conjuntiva inflammati on, discharged and matted left eye. She has been using warm compresses . Will send prescripti on for eye drops for conjunctiv itis.Will send in repeat prescripti on for eye drops. Diarrhea 20313604 R19.7 Diarrhea has resolved. Patient with recent C diff Deep venou s thrombosis 788943025 I82.409 Patient developed right lower extremity pain and edema.Veno us duplex on May 28, 2023 with evidence of deep vein thrombosis . Started on Eliquis 5 mg 1 tab p.o. b.i.d.. Did not start with Eliquis starter pack due to recent bleeding. Patient had a DVT and a PE in 1990 after her hysterecto my. Anxiety 45439470 F41.9 Patient has had increased anxiety. She is tearful and crying during her visit today due to all of her health problems. She does not want to take an antidepres melina at this time. Discussed low-dose Ativan. Improvemen t in mood overall on visit from June 08, 2023. [id number] Hanna Fournier PA-C [facility] [address] [place] [address] 08/10/2023 09:01:37 08/10/2023 09:59:21 Malignant tumor of ascending colon 182352816 C18.2 CT scan of the abdomen and [...] 8.2 hematocrit 29.0. MCV 67.9. Platelet count 129529. Normal cell differenti al. Low serum folate [...] Will follow-up. Metastatic malignant neoplasm to liver 07026717 C78.7 CT scan of the abdomen and [...] Findings concerning for metastatic colon cancer. Nausea 268482583 R11.0 As needed Zofran and Phenergan prescribed . Pain due t o neoplastic disease 0821018176 9102 G89.3 Right upper quadrant pain secondary to liver metastasis . Patient currently taking Tylenol. Discussed as needed oxycodone to limit Tylenol exposure. Anemia 601649089 D64.9 Right-side d colon mass concerning for malignancy . Will assess for any signs of iron deficiency . Most recent hemoglobin at 8.0. Concern for blood loss from colon mass. Patient reports dark stools. Adopted 369901705 Z62.89 8 Patient is adopted and discussed hereditary gene panel. Patient does have family history of her son having bladder cancer. Will send [facility] hereditary panel. Antineopla stic chemotherapy regimen 774804215 Z51.11 Week 1 5FU Leucovorin Vectibix on [...] and Vectibix on August 10, 2023. Hypokalemia 35182037 E87 .6 Patient returns on April 29, 2023. Potassium is low at 2.9. Will send prescripti on for potassium 20 mEq daily. Will follow-up labs again next week. Loss of appetite 8362940 6 R63.0 Patient has had nausea and decreased appetite since her cancer diagnosis. She can not tolerate her nutritiona l drinks. She does take Phenergan with relief. She continues to lose weight. Will send prescripti on for Megace. Acute conjunctivitis 537 88239 H10.32 Patient returns on May 11, 2023. She has had erythema, conjuntiva inflammati on, discharged and matted left eye. She has been using warm compresses . Will send prescripti on for eye drops for conjunctiv itis.Will send in repeat prescripti on for eye drops. Diarrhea 68270042 R19.7 Diarrhea has resolved. Patient with recent C diff Deep venou s thrombosis 913782985 I82.409 Patient developed right lower extremity pain and edema.Veno us duplex on May 28, 2023 with evidence of deep vein thrombosis . Started on Eliquis 5 mg 1 tab p.o. b.i.d.. Did not start with Eliquis starter pack due to recent bleeding. Patient had a DVT and a PE in 1990 after her hysterecto my. Anxiety 06048410 F41.9 Patient has had increased anxiety. She is tearful and crying during her visit today due to all of her health problems. She does not want to take an antidepres melina at this time. Discussed low-dose Ativan. Improvemen t in mood overall on visit from June 08, 2023. [id number] Hanna Fournier PA-C [facility] [address] [place] [address] 08/24/2023 09:22:37 08/24/2023 09:52:19 Malignant tumor of ascending colon 428199208 C18.2 CT scan of the abdomen and [...] 8.2 hematocrit 29.0. MCV 67.9. Platelet count 606184. Normal cell differenti al. Low serum folate [...] Will follow-up Metastatic malignant neoplasm to liver 46857988 C78.7 CT scan of the abdomen and [...] Findings concerning for metastatic colon cancer. Nausea 247012428 R11.0 As needed Zofran and Phenergan prescribed . Pain due t o neoplastic disease 9010608797 9102 G89.3 Right upper quadrant pain secondary to liver metastasis . Patient currently taking Tylenol. Discussed as needed oxycodone to limit Tylenol exposure. Anemia 550824803 D64.9 Right-side d colon mass concerning for malignancy . Will assess for any signs of iron deficiency . Most recent hemoglobin at 8.0. Concern for blood loss from colon mass. Patient reports dark stools. Adopted 750650575 Z62.89 8 Patient is adopted and discussed hereditary gene panel. Patient does have family history of her son having bladder cancer. Will send [facility] hereditary panel. Antineopla stic chemotherapy regimen 339663347 Z51.11 Week 1 5FU Leucovorin Vectibix on [...] and Vectibix on August 24, 2023. Hypokalemia 55849913 E87 .6 Patient returns on April 29, 2023. Potassium is low at 2.9. Will send prescripti on for potassium 20 mEq daily. Will follow-up labs again next week. Loss of appetite 3690480 6 R63.0 Patient has had nausea and decreased appetite since her cancer diagnosis. She can not tolerate her nutritiona l drinks. She does take Phenergan with relief. She continues to lose weight. Will send prescripti on for Megace. Acute conjunctivitis 535 34385 H10.32 Patient returns on May 11, 2023. She has had erythema, conjuntiva inflammati on, discharged and matted left eye. She has been using warm compresses . Will send prescripti on for eye drops for conjunctiv itis.Will send in repeat prescripti on for eye drops. Diarrhea 50540580 R19.7 Diarrhea has resolved. Patient with recent C diff Deep venou s thrombosis 277816043 I82.409 Patient developed right lower extremity pain and edema.Veno us duplex on May 28, 2023 with evidence of deep vein thrombosis . Started on Eliquis 5 mg 1 tab p.o. b.i.d.. Did not start with Eliquis starter pack due to recent bleeding. Patient had a DVT and a PE in 1990 after her hysterecto my. Anxiety 08507832 F41.9 Patient has had increased anxiety. She is tearful and crying during her visit today due to all of her health problems. She does not want to take an antidepres melina at this time. Discussed low-dose Ativan. Improvemen t in mood overall on visit from June 08, 2023. [id number] Hanna Fournier PA-C [facility] [address] [place] [address] 09/07/2023 08:42:30 09/07/2023 09:21:28 Malignant tumor of ascending colon 970641080 C18.2 CT scan of the abdomen and [...] 8.2 hematocrit 29.0. MCV 67.9. Platelet count 912287. Normal cell differenti al. Low serum folate [...] Will follow-up. Metastatic malignant neoplasm to liver 47790245 C78.7 CT scan of the abdomen and [...] Findings concerning for metastatic colon cancer. Nausea 181617360 R11.0 As needed Zofran and Phenergan prescribed . Pain due t o neoplastic disease 9100056116 9102 G89.3 Right upper quadrant pain secondary to liver metastasis . Patient currently taking Tylenol. Discussed as needed oxycodone to limit Tylenol exposure. Anemia 686536337 D64.9 Right-side d colon mass concerning for malignancy . Will assess for any signs of iron deficiency . Most recent hemoglobin at 8.0. Concern for blood loss from colon mass. Patient reports dark stools. Adopted 993965061 Z62.89 8 Patient is adopted and discussed hereditary gene panel. Patient does have family history of her son having bladder cancer. Will send [facility] hereditary panel. Antineopla stic chemotherapy regimen 121158959 Z51.11 Week 1 5FU Leucovorin Vectibix on [...] Vectibix today secondary to conjunctiv itis Hypokalemia 75049101 E87 .6 Patient returns on April 29, 2023. Potassium is low at 2.9. Will send prescripti on for potassium 20 mEq daily. Will follow-up labs again next week. Loss of appetite 5630800 6 R63.0 Patient has had nausea and decreased appetite since her cancer diagnosis. She can not tolerate her nutritiona l drinks. She does take Phenergan with relief. She continues to lose weight. Will send prescripti on for Megace. Acute conjunctivitis 537 67587 H10.32 Patient returns on May 11, 2023. She has had erythema, conjuntiva inflammati on, discharged and matted left eye. She has been using warm compresses . Will send prescripti on for eye drops for conjunctiv itis.Will send in repeat prescripti on for eye drops. Diarrhea 13455413 R19.7 Diarrhea has resolved. Patient with recent C diff Deep venou s thrombosis 116649852 I82.409 Patient developed right lower extremity pain and edema.Veno us duplex on May 28, 2023 with evidence of deep vein thrombosis . Started on Eliquis 5 mg 1 tab p.o. b.i.d.. Did not start with Eliquis starter pack due to recent bleeding. Patient had a DVT and a PE in 1990 after her hysterecto my. Anxiety 48984696 F41.9 Patient has had increased anxiety. She is tearful and crying during her visit today due to all of her health problems. She does not want to take an antidepres melina at this time. Discussed low-dose Ativan. Improvemen t in mood overall on visit from June 08, 2023. [id number] Tomy King MD [facility] [address] [place] [address] 09/21/2023 09:41:41 09/21/2023 11:20:44 Malignant tumor of ascending colon 447128509 C18.2 CT scan of the abdomen and [...] 8.2 hematocrit 29.0. MCV 67.9. Platelet count 125048. Normal cell differenti al. Low serum folate [...] to improve. Metastatic malignant neoplasm to liver 06686653 C78.7 CT scan of the abdomen and [...] Findings concerning for metastatic colon cancer. Nausea 058932427 R11.0 As needed Zofran and Phenergan prescribed . Pain due t o neoplastic disease 6041536840 9102 G89.3 Right upper quadrant pain secondary to liver metastasis . Patient currently taking Tylenol. Discussed as needed oxycodone to limit Tylenol exposure. Anemia 758771851 D64.9 Right-side d colon mass concerning for malignancy . Will assess for any signs of iron deficiency . Most recent hemoglobin at 8.0. Concern for blood loss from colon mass. Patient reports dark stools. Adopted 412656752 Z62.89 8 Patient is adopted and discussed hereditary gene panel. Patient does have family history of her son having bladder cancer. Will send [facility] hereditary panel. Antineopla stic chemotherapy regimen 400416597 Z51.11 Week 1 5FU Leucovorin Vectibix on [...] dose held secondary to conjunctiv itis. Hypokalemia 08887561 E87 .6 Patient returns on April 29, 2023. Potassium is low at 2.9. Will send prescripti on for potassium 20 mEq daily. Will follow-up labs again next week. Loss of appetite 3323764 6 R63.0 Patient has had nausea and decreased appetite since her cancer diagnosis. She can not tolerate her nutritiona l drinks. She does take Phenergan with relief. She continues to lose weight. Will send prescripti on for Megace. Acute conjunctivitis 977 37610 H10.32 Patient returns on May 11, 2023. She has had erythema, conjuntiva inflammati on, discharged and matted left eye. She has been using warm compresses . Will send prescripti on for eye drops for conjunctiv itis.Will send in repeat prescripti on for eye drops. Diarrhea 44049472 R19.7 Diarrhea has resolved. Patient with recent C diff Deep venou s thrombosis 331236112 I82.409 Patient developed right lower extremity pain and edema.Veno us duplex on May 28, 2023 with evidence of deep vein thrombosis . Started on Eliquis 5 mg 1 tab p.o. b.i.d.. Did not start with Eliquis starter pack due to recent bleeding. Patient had a DVT and a PE in 1990 after her hysterecto my. Anxiety 73005659 F41.9 Patient has had increased anxiety. She is tearful and crying during her visit today due to all of her health problems. She does not want to take an antidepres melina at this time. Discussed low-dose Ativan. Improvemen t in mood overall on visit from June 08, 2023. [id number] Hanna Fournier PA-C [facility] [address] [place] [address] 10/05/2023 09:19:08 10/05/2023 10:17:18 Malignant tumor of ascending colon 713415565 C18.2 CT scan of the abdomen and [...] 8.2 hematocrit 29.0. MCV 67.9. Platelet count 771373. Normal cell differenti al. Low serum folate [...] bilaterall y. Metastatic malignant neoplasm to liver 23303004 C78.7 CT scan of the abdomen and [...] Findings concerning for metastatic colon cancer. Nausea 311325856 R11.0 As needed Zofran and Phenergan prescribed . Pain due t o neoplastic disease 2331266049 9102 G89.3 Right upper quadrant pain secondary to liver metastasis . Patient currently taking Tylenol. Discussed as needed oxycodone to limit Tylenol exposure. Anemia 697249536 D64.9 Right-side d colon mass concerning for malignancy . Will assess for any signs of iron deficiency . Most recent hemoglobin at 8.0. Concern for blood loss from colon mass. Patient reports dark stools. Adopted 873641861 Z62.89 8 Patient is adopted and discussed hereditary gene panel. Patient does have family history of her son having bladder cancer. Will send [facility] hereditary panel. Antineopla stic chemotherapy regimen 441859886 Z51.11 Week 1 5FU Leucovorin Vectibix on [...] membranes of the eyes bilaterall y. Hypokalemia 25472423 E87 .6 Patient returns on April 29, 2023. Potassium is low at 2.9. Will send prescripti on for potassium 20 mEq daily. Will follow-up labs again next week. Loss of appetite 5738524 6 R63.0 Patient has had nausea and decreased appetite since her cancer diagnosis. She can not tolerate her nutritiona l drinks. She does take Phenergan with relief. She continues to lose weight. Will send prescripti on for Megace. Acute conjunctivitis 891 94325 H10.32 Patient returns on May 11, 2023. She has had erythema, conjuntiva inflammati on, discharged and matted left eye. She has been using warm compresses . Will send prescripti on for eye drops for conjunctiv itis.Will send in repeat prescripti on for eye drops. Diarrhea 55115579 R19.7 Diarrhea has resolved. Patient with recent C diff Deep venou s thrombosis 628648685 I82.409 Patient developed right lower extremity pain and edema.Veno us duplex on May 28, 2023 with evidence of deep vein thrombosis . Started on Eliquis 5 mg 1 tab p.o. b.i.d.. Did not start with Eliquis starter pack due to recent bleeding. Patient had a DVT and a PE in 1990 after her hysterecto my. Anxiety 00702906 F41.9 Patient has had increased anxiety. She is tearful and crying during her visit today due to all of her health problems. She does not want to take an antidepres melina at this time. Discussed low-dose Ativan. Improvemen t in mood overall on visit from June 08, 2023. [id number] Hanna Fournier PA-C [facility] [address] [place] [address] 10/19/2023 09:07:50 10/19/2023 10:19:57 Malignant tumor of ascending colon 212340998 C18.2 CT scan of the abdomen and [...] 8.2 hematocrit 29.0. MCV 67.9. Platelet count 805709. Normal cell differenti al. Low serum folate [...] appropriat froilan. Metastatic malignant neoplasm to liver 64796116 C78.7 CT scan of the abdomen and [...] Findings concerning for metastatic colon cancer. Nausea 423443379 R11.0 As needed Zofran and Phenergan prescribed . Pain due t o neoplastic disease 1190248727 9102 G89.3 Right upper quadrant pain secondary to liver metastasis . Patient currently taking Tylenol. Discussed as needed oxycodone to limit Tylenol exposure. Anemia 197894381 D64.9 Right-side d colon mass concerning for malignancy . Will assess for any signs of iron deficiency . Most recent hemoglobin at 8.0. Concern for blood loss from colon mass. Patient reports dark stools. Adopted 065694342 Z62.89 8 Patient is adopted and discussed hereditary gene panel. Patient does have family history of her son having bladder cancer. Will send [facility] hereditary panel. Antineopla stic chemotherapy regimen 931473150 Z51.11 Week 1 5FU Leucovorin Vectibix on [...] with Vectibix on October 19, 2023. Hypokalemia 17459712 E87 .6 Patient returns on April 29, 2023. Potassium is low at 2.9. Will send prescripti on for potassium 20 mEq daily. Will follow-up labs again next week. Loss of appetite 0745664 6 R63.0 Patient has had nausea and decreased appetite since her cancer diagnosis. She can not tolerate her nutritiona l drinks. She does take Phenergan with relief. She continues to lose weight. Will send prescripti on for Megace. Acute conjunctivitis 633 68153 H10.32 Patient returns on May 11, 2023. She has had erythema, conjuntiva inflammati on, discharged and matted left eye. She has been using warm compresses . Will send prescripti on for eye drops for conjunctiv itis.Will send in repeat prescripti on for eye drops. Diarrhea 88940969 R19.7 Diarrhea has resolved. Patient with recent C diff Deep venou s thrombosis 537726320 I82.409 Patient developed right lower extremity pain and edema.Veno us duplex on May 28, 2023 with evidence of deep vein thrombosis . Started on Eliquis 5 mg 1 tab p.o. b.i.d.. Did not start with Eliquis starter pack due to recent bleeding. Patient had a DVT and a PE in 1990 after her hysterecto my. Anxiety 55359085 F41.9 Patient has had increased anxiety. She is tearful and crying during her visit today due to all of her health problems. She does not want to take an antidepres melina at this time. Discussed low-dose Ativan. Improvemen t in mood overall on visit from June 08, 2023. [id number] Hanna Fournier PA-C [facility] [address] [place] [address] 11/02/2023 09:20:10 11/02/2023 09:58:16 Malignant tumor of ascending colon 866687644 C18.2 CT scan of the abdomen and [...] 8.2 hematocrit 29.0. MCV 67.9. Platelet count 838947. Normal cell differenti al. Low serum folate [...] ed Eliquis Metastatic malignant neoplasm to liver 45595652 C78.7 CT scan of the abdomen and [...] Findings concerning for metastatic colon cancer. Nausea 853954702 R11.0 As needed Zofran and Phenergan prescribed . Pain due t o neoplastic disease [id number] 9102 G89.3 Right upper quadrant pain secondary to liver metastasis . Patient currently taking Tylenol. Discussed as needed oxycodone to limit Tylenol exposure. Anemia 691218860 D64.9 Right-side d colon mass concerning for malignancy . Will assess for any signs of iron deficiency . Most recent hemoglobin at 8.0. Concern for blood loss from colon mass. Patient reports dark stools. Adopted [id number] Z62.89 8 Patient is adopted and discussed hereditary gene panel. Patient does have family history of her son having bladder cancer. Will send [facility] hereditary panel. Antineopla stic chemotherapy regimen 267049176 Z51.11 Week 1 5FU Leucovorin Vectibix on [...] with Vectibix on November 02, 2023. Hypokalemia 72203187 E87 .6 Patient returns on April 29, 2023. Potassium is low at 2.9. Will send prescripti on for potassium 20 mEq daily. Will follow-up labs again next week. Loss of appetite 7709504 6 R63.0 Patient has had nausea and decreased appetite since her cancer diagnosis. She can not tolerate her nutritiona l drinks. She does take Phenergan with relief. She continues to lose weight. Will send prescripti on for Megace. Acute conjunctivitis 537 21278 H10.32 Patient returns on May 11, 2023. She has had erythema, conjuntiva inflammati on, discharged and matted left eye. She has been using warm compresses . Will send prescripti on for eye drops for conjunctiv itis.Will send in repeat prescripti on for eye drops. Diarrhea 76986835 R19.7 Diarrhea has resolved. Patient with recent C diff Deep venou s thrombosis 213972793 I82.409 Patient developed right lower extremity pain and edema.Veno us duplex on May 28, 2023 with evidence of deep vein thrombosis . Started on Eliquis 5 mg 1 tab p.o. b.i.d.. Did not start with Eliquis starter pack due to recent bleeding. Patient had a DVT and a PE in 1990 after her hysterecto my. Anxiety 82040970 F41.9 Patient has had increased anxiety. She is tearful and crying during her visit today due to all of her health problems. She does not want to take an antidepres melina at this time. Discussed low-dose Ativan. Improvemen t in mood overall on visit from June 08, 2023. [id number] Addy Gonzales MD [facility] [address] [place] [address] 11/03/2023 13:09:58 11/03/2023 14:02:01 Malignant tumor of ascending colon 018127292 C18.2 I have scheduled the patient for [...] as a part of this patient's care. [id number] Hanna Fournier PA-C [facility] [address] [place] [address] 11/23/2023 09:05:54 11/23/2023 09:52:19 Malignant tumor of ascending colon 241582940 C18.2 CT scan of the abdomen and [...] 8.2 hematocrit 29.0. MCV 67.9. Platelet count 789844. Normal cell differenti al. Low serum folate [...] mg daily. Metastatic malignant neoplasm to liver 60953335 C78.7 CT scan of the abdomen and [...] Findings concerning for metastatic colon cancer. Nausea 062467209 R11.0 As needed Zofran and Phenergan prescribed . Pain due t o neoplastic disease [id number] 9102 G89.3 Right upper quadrant pain secondary to liver metastasis . Patient currently taking Tylenol. Discussed as needed oxycodone to limit Tylenol exposure. Anemia 203013447 D64.9 Right-side d colon mass concerning for malignancy . Will assess for any signs of iron deficiency . Most recent hemoglobin at 8.0. Concern for blood loss from colon mass. Patient reports dark stools. Adopted 373301129 Z62.89 8 Patient is adopted and discussed hereditary gene panel. Patient does have family history of her son having bladder cancer. Will send [facility] hereditary panel. Antineopla stic chemotherapy regimen 291852842 Z51.11 Week 1 5FU Leucovorin Vectibix on [...] with Vectibix on November 23, 2023. Hypokalemia 83548920 E87 .6 Patient returns on April 29, 2023. Potassium is low at 2.9. Will send prescripti on for potassium 20 mEq daily. Will follow-up labs again next week. Loss of appetite 1492735 6 R63.0 Patient has had nausea and decreased appetite since her cancer diagnosis. She can not tolerate her nutritiona l drinks. She does take Phenergan with relief. She continues to lose weight. Will send prescripti on for Megace. Acute conjunctivitis 537 52749 H10.32 Patient returns on May 11, 2023. She has had erythema, conjuntiva inflammati on, discharged and matted left eye. She has been using warm compresses . Will send prescripti on for eye drops for conjunctiv itis.Will send in repeat prescripti on for eye drops. Diarrhea 26425766 R19.7 Diarrhea has resolved. Patient with recent C diff Deep venou s thrombosis 487078160 I82.409 Patient developed right lower extremity pain and edema.Veno us duplex on May 28, 2023 with evidence of deep vein thrombosis . Started on Eliquis 5 mg 1 tab p.o. b.i.d.. Did not start with Eliquis starter pack due to recent bleeding. Patient had a DVT and a PE in 1990 after her hysterecto my. Anxiety 85428969 F41.9 Patient has had increased anxiety. She is tearful and crying during her visit today due to all of her health problems. She does not want to take an antidepres melina at this time. Discussed low-dose Ativan. Improvemen t in mood overall on visit from June 08, 2023. Mixed anxi ety and depressive disorder 201400614 F41.8 Patient returns on November 23, 2023. [...] Mirtazapin e dose to 30 mg daily. [id number] Tomy King MD [facility] [address] [place] [address] 12/07/2023 09:01:54 12/07/2023 09:40:34 Malignant tumor of ascending colon 381420096 C18.2 CT scan of the abdomen and [...] 8.2 hematocrit 29.0. MCV 67.9. Platelet count 294649. Normal cell differenti al. Low serum folate [...] 2 weeks. Metastatic malignant neoplasm to liver 55420119 C78.7 CT scan of the abdomen and [...] Findings concerning for metastatic colon cancer. Nausea 459943134 R11.0 As needed Zofran and Phenergan prescribed . Pain due t o neoplastic disease 2858912212 9102 G89.3 Right upper quadrant pain secondary to liver metastasis . Patient currently taking Tylenol. Discussed as needed oxycodone to limit Tylenol exposure. Anemia 839536909 D64.9 Right-side d colon mass concerning for malignancy . Will assess for any signs of iron deficiency . Most recent hemoglobin at 8.0. Concern for blood loss from colon mass. Patient reports dark stools. Adopted 660483579 Z62.89 8 Patient is adopted and discussed hereditary gene panel. Patient does have family history of her son having bladder cancer. Will send [facility] hereditary panel. Antineopla stic chemotherapy regimen 784725882 Z51.11 Week 1 5FU Leucovorin Vectibix on [...] with Vectibix on December 07, 2023. Hypokalemia 94307104 E87 .6 Patient returns on April 29, 2023. Potassium is low at 2.9. Will send prescripti on for potassium 20 mEq daily. Will follow-up labs again next week. Deep venou s thrombosis 526906224 I82.409 Patient developed right lower extremity pain and edema.Veno us duplex on May 28, 2023 with evidence of deep vein thrombosis . Started on Eliquis 5 mg 1 tab p.o. b.i.d.. Did not start with Eliquis starter pack due to recent bleeding. Patient had a DVT and a PE in 1990 after her hysterecto my. Mixed anxi ety and depressive disorder 839724074 F41.8 Patient returns on November 23, 2023. [...] to 30 mg daily. Atopic conjunctivitis 23 6235301 H10.12 Patient with conjunctiv itis of the left eye. Holding Vectibix today on December 07, 2023. Continue with current therapy. Will follow up again in 2 weeks. [id number] Hanna Fournier PA-C [facility] [address] [place] [address] 12/21/2023 09:48:25 12/21/2023 10:21:03 Malignant tumor of ascending colon 667708527 C18.2 CT scan of the abdomen and [...] 8.2 hematocrit 29.0. MCV 67.9. Platelet count 105138. Normal cell differenti al. Low serum folate [...] 2 weeks. Metastatic malignant neoplasm to liver 10485697 C78.7 CT scan of the abdomen and [...] Findings concerning for metastatic colon cancer. Nausea 397144101 R11.0 As needed Zofran and Phenergan prescribed . Pain due t o neoplastic disease 2165783038 9102 G89.3 Right upper quadrant pain secondary to liver metastasis . Patient currently taking Tylenol. Discussed as needed oxycodone to limit Tylenol exposure. Anemia 074332158 D64.9 Right-side d colon mass concerning for malignancy . Will assess for any signs of iron deficiency . Most recent hemoglobin at 8.0. Concern for blood loss from colon mass. Patient reports dark stools. Adopted 197624164 Z62.89 8 Patient is adopted and discussed hereditary gene panel. Patient does have family history of her son having bladder cancer. Will send [facility] hereditary panel. Antineopla stic chemotherapy regimen 799657952 Z51.11 Week 1 5FU Leucovorin Vectibix on [...] with Vectibix on November 21, 2023. Hypokalemia 75658644 E87 .6 Patient returns on April 29, 2023. Potassium is low at 2.9. Will send prescripti on for potassium 20 mEq daily. Will follow-up labs again next week. Deep venou s thrombosis 671070233 I82.409 Patient developed right lower extremity pain and edema.Veno us duplex on May 28, 2023 with evidence of deep vein thrombosis . Started on Eliquis 5 mg 1 tab p.o. b.i.d.. Did not start with Eliquis starter pack due to recent bleeding. Patient had a DVT and a PE in 1990 after her hysterecto my. Mixed anxi ety and depressive disorder 287649407 F41.8 Patient returns on November 23, 2023. [...] to 30 mg daily. Atopic conjunctivitis 23 3234542 H10.12 Patient with conjunctiv itis of the left eye. Held Vectibix on December 07, 2023. Continue with current therapy. Will follow up again in 2 weeks. [id number] Hanna Fournier PA-C [facility] [address] [place] [address] 01/04/2024 09:55:59 01/04/2024 10:32:04 Malignant tumor of ascending colon 113363559 C18.2 CT scan of the abdomen and [...] 8.2 hematocrit 29.0. MCV 67.9. Platelet count 096104. Normal cell differenti al. Low serum folate [...] January 2024. Metastatic malignant neoplasm to liver 02467967 C78.7 CT scan of the abdomen and [...] Findings concerning for metastatic colon cancer. Nausea 933559168 R11.0 As needed Zofran and Phenergan prescribed . Pain due t o neoplastic disease 5637385456 9102 G89.3 Right upper quadrant pain secondary to liver metastasis . Patient currently taking Tylenol. Discussed as needed oxycodone to limit Tylenol exposure. Anemia 435462048 D64.9 Right-side d colon mass concerning for malignancy . Will assess for any signs of iron deficiency . Most recent hemoglobin at 8.0. Concern for blood loss from colon mass. Patient reports dark stools. Adopted 534192825 Z62.89 8 Patient is adopted and discussed hereditary gene panel. Patient does have family history of her son having bladder cancer. Will send [facility] hereditary panel. Antineopla stic chemotherapy regimen 937722401 Z51.11 Week 1 5FU Leucovorin Vectibix on [...] without Vectibix on January 04, 2024. Hypokalemia 23201003 E87 .6 Patient returns on April 29, 2023. Potassium is low at 2.9. Will send prescripti on for potassium 20 mEq daily. Will follow-up labs again next week. Deep venou s thrombosis 580796814 I82.409 Patient developed right lower extremity pain and edema.Veno us duplex on May 28, 2023 with evidence of deep vein thrombosis . Started on Eliquis 5 mg 1 tab p.o. b.i.d.. Did not start with Eliquis starter pack due to recent bleeding. Patient had a DVT and a PE in 1990 after her hysterecto my. Mixed anxi ety and depressive disorder 765393684 F41.8 Patient returns on November 23, 2023. [...] to 30 mg daily. Atopic conjunctivitis 23 9807006 H10.12 Patient with conjunctiv itis of the left eye. Held Vectibix on December 07, 2023. Continue with current therapy. Will follow up again in 2 weeks. Iron defic iency anemia 26048318 D50.9 [id number] Hanna Fournier PA-C [facility] [address] [place] [address] 01/25/2024 09:42:09 01/25/2024 10:49:14 Malignant tumor of ascending colon 094475071 C18.2 CT scan of the abdomen and [...] 8.2 hematocrit 29.0. MCV 67.9. Platelet count 824948. Normal cell differenti al. Low serum folate [...] Will schedule. Metastatic malignant neoplasm to liver 48121164 C78.7 CT scan of the abdomen and [...] Findings concerning for metastatic colon cancer. Nausea 266532681 R11.0 As needed Zofran and Phenergan prescribed . Pain due t o neoplastic disease 5164366588 9102 G89.3 Right upper quadrant pain secondary to liver metastasis . Patient currently taking Tylenol. Discussed as needed oxycodone to limit Tylenol exposure. Anemia 516037277 D64.9 Right-side d colon mass concerning for malignancy . Will assess for any signs of iron deficiency . Most recent hemoglobin at 8.0. Concern for blood loss from colon mass. Patient reports dark stools. Adopted 307958877 Z62.89 8 Patient is adopted and discussed hereditary gene panel. Patient does have family history of her son having bladder cancer. Will send [facility] hereditary panel. Antineopla stic chemotherapy regimen 606262354 Z51.11 Week 1 5FU Leucovorin Vectibix on [...] with Vectibix on January 25, 2024. Hypokalemia 62007425 E87 .6 Patient returns on April 29, 2023. Potassium is low at 2.9. Will send prescripti on for potassium 20 mEq daily. Will follow-up labs again next week. Deep venou s thrombosis 478603393 I82.409 Patient developed right lower extremity pain and edema.Veno us duplex on May 28, 2023 with evidence of deep vein thrombosis . Started on Eliquis 5 mg 1 tab p.o. b.i.d.. Did not start with Eliquis starter pack due to recent bleeding. Patient had a DVT and a PE in 1990 after her hysterecto my. Mixed anxi ety and depressive disorder 188469292 F41.8 Patient returns on November 23, 2023. [...] to 30 mg daily. Atopic conjunctivitis 23 0709467 H10.12 Patient with conjunctiv itis of the left eye. Held Vectibix on December 07, 2023. Continue with current therapy. Will follow up again in 2 weeks. Iron defic iency anemia 74613766 D50.9 [id number] Hanna Fournier PA-C [facility] [address] [place] [address] 02/08/2024 09:30:04 02/08/2024 10:49:29 Malignant tumor of ascending colon 486883796 C18.2 CT scan of the abdomen and [...] 8.2 hematocrit 29.0. MCV 67.9. Platelet count 993758. Normal cell differenti al. Low serum folate [...] follow-up imaging. Metastatic malignant neoplasm to liver 66127747 C78.7 CT scan of the abdomen and [...] Findings concerning for metastatic colon cancer. Nausea 183236959 R11.0 As needed Zofran and Phenergan prescribed . Pain due t o neoplastic disease 8040254183 9102 G89.3 Right upper quadrant pain secondary to liver metastasis . Patient currently taking Tylenol. Discussed as needed oxycodone to limit Tylenol exposure. Anemia 333666057 D64.9 Right-side d colon mass concerning for malignancy . Will assess for any signs of iron deficiency . Most recent hemoglobin at 8.0. Concern for blood loss from colon mass. Patient reports dark stools. Adopted 549018090 Z62.89 8 Patient is adopted and discussed hereditary gene panel. Patient does have family history of her son having bladder cancer. Will send [facility] hereditary panel. Antineopla stic chemotherapy regimen 358801602 Z51.11 Week 1 5FU Leucovorin Vectibix on [...] without Vectibix on February 08, 2024. Hypokalemia 26214439 E87 .6 Patient returns on April 29, 2023. Potassium is low at 2.9. Will send prescripti on for potassium 20 mEq daily. Will follow-up labs again next week. Deep venou s thrombosis 410675088 I82.409 Patient developed right lower extremity pain and edema.Veno us duplex on May 28, 2023 with evidence of deep vein thrombosis . Started on Eliquis 5 mg 1 tab p.o. b.i.d.. Did not start with Eliquis starter pack due to recent bleeding. Patient had a DVT and a PE in 1990 after her hysterecto my. Mixed anxi ety and depressive disorder 335167908 F41.8 Patient returns on November 23, 2023. [...] to 30 mg daily. Atopic conjunctivitis 23 9340082 H10.12 Patient with conjunctiv itis of the left eye. Held Vectibix on December 07, 2023. Continue with current therapy. Will follow up again in 2 weeks. Iron defic iency anemia 87563887 D50.9 Will follow up labs Insomnia 695687696 G47.0 0 Patient returns on February 08, 2024. She has had difficulty sleeping for most of her life. She has tried multiple medication s without relief. She is tried Mirtazapin e and lorazepam without improvemen t of insomnia. Discussed trying trazodone instead. Will send prescripti on. Will send prescripti on for Requip for restless legs. Restless legs 47983364 G 25.81 Patient returns on February 08, 2024. She has had difficulty sleeping for most of her life. She has tried multiple medication s without relief. She is tried Mirtazapin e and lorazepam without improvemen t of insomnia. Discussed trying trazodone instead. Will send prescripti on. Will send prescripti on for Requip for restless legs. [id number] Hanna Fournier PA-C [facility] [address] [place] [address] 02/22/2024 10:08:45 02/22/2024 10:41:02 Malignant tumor of ascending colon 713044882 C18.2 CT scan of the abdomen and [...] 8.2 hematocrit 29.0. MCV 67.9. Platelet count 154460. Normal cell differenti al. Low serum folate [...] 15, 2024. Metastatic malignant neoplasm to liver 36657176 C78.7 CT scan of the abdomen and [...] Findings concerning for metastatic colon cancer. Nausea 351444966 R11.0 As needed Zofran and Phenergan prescribed . Pain due t o neoplastic disease 2762255454 9102 G89.3 Right upper quadrant pain secondary to liver metastasis . Patient currently taking Tylenol. Discussed as needed oxycodone to limit Tylenol exposure. Anemia 198648595 D64.9 Right-side d colon mass concerning for malignancy . Will assess for any signs of iron deficiency . Most recent hemoglobin at 8.0. Concern for blood loss from colon mass. Patient reports dark stools. Adopted 621258234 Z62.89 8 Patient is adopted and discussed hereditary gene panel. Patient does have family history of her son having bladder cancer. Will send [facility] hereditary panel. Antineopla stic chemotherapy regimen 477521645 Z51.11 Week 1 5FU Leucovorin Vectibix on [...] with Vectibix on February 22, 2024. Hypokalemia 01101385 E87 .6 Patient returns on April 29, 2023. Potassium is low at 2.9. Will send prescripti on for potassium 20 mEq daily. Will follow-up labs again next week. Deep venou s thrombosis 968207256 I82.409 Patient developed right lower extremity pain and edema.Veno us duplex on May 28, 2023 with evidence of deep vein thrombosis . Started on Eliquis 5 mg 1 tab p.o. b.i.d.. Did not start with Eliquis starter pack due to recent bleeding. Patient had a DVT and a PE in 1990 after her hysterecto my. Mixed anxi ety and depressive disorder 917871503 F41.8 Patient returns on November 23, 2023. [...] to 30 mg daily. Atopic conjunctivitis 23 5070925 H10.12 Patient with conjunctiv itis of the left eye. Held Vectibix on December 07, 2023. Continue with current therapy. Will follow up again in 2 weeks. Iron defic iency anemia 66585814 D50.9 Will follow up labs Insomnia 791004812 G47.0 0 Patient returns on February 08, 2024. She has had difficulty sleeping for most of her life. She has tried multiple medication s without relief. She is tried Mirtazapin e and lorazepam without improvemen t of insomnia. Discussed trying trazodone instead. Will send prescripti on. Will send prescripti on for Requip for restless legs. Restless legs 24705102 G 25.81 Patient returns on February 08, 2024. She has had difficulty sleeping for most of her life. She has tried multiple medication s without relief. She is tried Mirtazapin e and lorazepam without improvemen t of insomnia. Discussed trying trazodone instead. Will send prescripti on. Will send prescripti on for Requip for restless legs. Infection of skin and/or subcutaneous tissue 46624866 L08.9 Patient returns on February 22, 2024. Patient has paronychia of the left ring finger after pulling a piece of loose skin yesterday. No abscess or drainage present. Discussed topical antibiotic s plus warm water soaks. Will send prescripti on. Discussed if does not improve or worsens will do oral antibiotic s. Will follow-up. [id number] Hanna Fournier PA-C [facility] [address] [place] [address] 03/07/2024 10:12:33 03/07/2024 11:14:04 Malignant tumor of ascending colon 400267397 C18.2 CT scan of the abdomen and [...] 8.2 hematocrit 29.0. MCV 67.9. Platelet count 358260. Normal cell differenti al. Low serum folate [...] 15, 2024. Metastatic malignant neoplasm to liver 54544816 C78.7 CT scan of the abdomen and [...] Findings concerning for metastatic colon cancer. Nausea 137380437 R11.0 As needed Zofran and Phenergan prescribed . Pain due t o neoplastic disease 3391277065 9102 G89.3 Right upper quadrant pain secondary to liver metastasis . Patient currently taking Tylenol. Discussed as needed oxycodone to limit Tylenol exposure. Anemia 906989902 D64.9 Right-side d colon mass concerning for malignancy . Will assess for any signs of iron deficiency . Most recent hemoglobin at 8.0. Concern for blood loss from colon mass. Patient reports dark stools. Adopted 702693545 Z62.89 8 Patient is adopted and discussed hereditary gene panel. Patient does have family history of her son having bladder cancer. Will send [facility] hereditary panel. Antineopla stic chemotherapy regimen 667329131 Z51.11 Week 1 5FU Leucovorin Vectibix on [...] with Vectibix on March 07, 2024. Hypokalemia 42791866 E87 .6 Patient returns on April 29, 2023. Potassium is low at 2.9. Will send prescripti on for potassium 20 mEq daily. Will follow-up labs again next week. Deep venou s thrombosis 759433470 I82.409 Patient developed right lower extremity pain and edema.Veno us duplex on May 28, 2023 with evidence of deep vein thrombosis . Started on Eliquis 5 mg 1 tab p.o. b.i.d.. Did not start with Eliquis starter pack due to recent bleeding. Patient had a DVT and a PE in 1990 after her hysterecto my. Mixed anxi ety and depressive disorder 303693203 F41.8 Patient returns on November 23, 2023. [...] to 30 mg daily. Atopic conjunctivitis 23 7958225 H10.12 Patient with conjunctiv itis of the left eye. Held Vectibix on December 07, 2023. Continue with current therapy. Will follow up again in 2 weeks. Iron defic iency anemia 70184775 D50.9 Will follow up labs Insomnia 841166452 G47.0 0 Patient returns on February 08, 2024. She has had difficulty sleeping for most of her life. She has tried multiple medication s without relief. She is tried Mirtazapin e and lorazepam without improvemen t of insomnia. Discussed trying trazodone instead. Will send prescripti on. Will send prescripti on for Requip for restless legs. Restless legs 46206025 G 25.81 Patient returns on February 08, 2024. She has had difficulty sleeping for most of her life. She has tried multiple medication s without relief. She is tried Mirtazapin e and lorazepam without improvemen t of insomnia. Discussed trying trazodone instead. Will send prescripti on. Will send prescripti on for Requip for restless legs. Infection of skin and/or subcutaneous tissue 74883995 L08.9 Patient returns on February 22, 2024. Patient has paronychia of the left ring finger after pulling a piece of loose skin yesterday. No abscess or drainage present. Discussed topical antibiotic s plus warm water soaks. Will send prescripti on. Discussed if does not improve or worsens will do oral antibiotic s. Will follow-up. This has resolved. [id number] Hanna Fournier PA-C [facility] [address] [place] [address] 03/21/2024 09:44:36 03/21/2024 10:52:41 Malignant tumor of ascending colon 550915612 C18.2 CT scan of the abdomen and [...] 8.2 hematocrit 29.0. MCV 67.9. Platelet count 902577. Normal cell differenti al. Low serum folate [...] current therapy. Metastatic malignant neoplasm to liver 04851302 C78.7 CT scan of the abdomen and [...] Findings concerning for metastatic colon cancer. Nausea 739487401 R11.0 As needed Zofran and Phenergan prescribed . Pain due t o neoplastic disease [id number] 9102 G89.3 Right upper quadrant pain secondary to liver metastasis . Patient currently taking Tylenol. Discussed as needed oxycodone to limit Tylenol exposure. Anemia 694329401 D64.9 Right-side d colon mass concerning for malignancy . Will assess for any signs of iron deficiency . Most recent hemoglobin at 8.0. Concern for blood loss from colon mass. Patient reports dark stools. Adopted 321180840 Z62.89 8 Patient is adopted and discussed hereditary gene panel. Patient does have family history of her son having bladder cancer. Will send [facility] hereditary panel. Antineopla stic chemotherapy regimen 727382666 Z51.11 Week 1 5FU Leucovorin Vectibix on [...] with Vectibix on March 21, 2024. Hypokalemia 90997500 E87 .6 Patient returns on April 29, 2023. Potassium is low at 2.9. Will send prescripti on for potassium 20 mEq daily. Will follow-up labs again next week. Deep venou s thrombosis 051652625 I82.409 Patient developed right lower extremity pain and edema.Veno us duplex on May 28, 2023 with evidence of deep vein thrombosis . Started on Eliquis 5 mg 1 tab p.o. b.i.d.. Did not start with Eliquis starter pack due to recent bleeding. Patient had a DVT and a PE in 1990 after her hysterecto my. Mixed anxi ety and depressive disorder 976500389 F41.8 Patient returns on November 23, 2023. [...] to 30 mg daily. Atopic conjunctivitis 23 1583751 H10.12 Patient with conjunctiv itis of the left eye. Held Vectibix on December 07, 2023. Continue with current therapy. Will follow up again in 2 weeks. Iron defic iency anemia 56608467 D50.9 Will follow up labs Insomnia 010138222 G47.0 0 Patient returns on February 08, 2024. She has had difficulty sleeping for most of her life. She has tried multiple medication s without relief. She is tried Mirtazapin e and lorazepam without improvemen t of insomnia. Discussed trying trazodone instead. Will send prescripti on. Will send prescripti on for Requip for restless legs. Restless legs 74067712 G 25.81 Patient returns on February 08, 2024. She has had difficulty sleeping for most of her life. She has tried multiple medication s without relief. She is tried Mirtazapin e and lorazepam without improvemen t of insomnia. Discussed trying trazodone instead. Prescripti on sent for Requip for restless legs. [id number] Hanna Fournier PA-C [facility] [address] [facility] [address] [place] [address] 04/04/2024 09:54:49 04/04/2024 10:42:05 Malignant tumor of ascending colon 992945104 C18.2 CT scan of the abdomen and [...] 8.2 hematocrit 29.0. MCV 67.9. Platelet count 676679. Normal cell differenti al. Low serum folate [...] current therapy. Metastatic malignant neoplasm to liver 11728079 C78.7 CT scan of the abdomen and [...] Findings concerning for metastatic colon cancer. Nausea 374065491 R11.0 As needed Zofran and Phenergan prescribed . Pain due t o neoplastic disease 9707017221 9102 G89.3 Right upper quadrant pain secondary to liver metastasis . Patient currently taking Tylenol. Discussed as needed oxycodone to limit Tylenol exposure. Anemia 390645280 D64.9 Right-side d colon mass concerning for malignancy . Will assess for any signs of iron deficiency . Most recent hemoglobin at 8.0. Concern for blood loss from colon mass. Patient reports dark stools. Adopted 875777511 Z62.89 8 Patient is adopted and discussed hereditary gene panel. Patient does have family history of her son having bladder cancer. Will send [facility] hereditary panel. Antineopla stic chemotherapy regimen 999964711 Z51.11 Week 1 5FU Leucovorin Vectibix on [...] without Vectibix on April 04, 2024. Hypokalemia 75251070 E87 .6 Patient returns on April 29, 2023. Potassium is low at 2.9. Will send prescripti on for potassium 20 mEq daily. Will follow-up labs again next week. Deep venou s thrombosis 365883078 I82.409 Patient developed right lower extremity pain and edema.Veno us duplex on May 28, 2023 with evidence of deep vein thrombosis . Started on Eliquis 5 mg 1 tab p.o. b.i.d.. Did not start with Eliquis starter pack due to recent bleeding. Patient had a DVT and a PE in 1990 after her hysterecto my. Mixed anxi ety and depressive disorder 613303114 F41.8 Patient returns on November 23, 2023. [...] prescripti on for Cymbalta. Atopic conjunctivitis 23 9157808 H10.12 Patient with conjunctiv itis of the left eye. Held Vectibix on December 07, 2023. Continue with current therapy. Will follow up again in 2 weeks. Iron defic iency anemia 61177955 D50.9 Will follow up labs Insomnia 020447945 G47.0 0 Patient returns on February 08, 2024. She has had difficulty sleeping for most of her life. She has tried multiple medication s without relief. She is tried Mirtazapin e and lorazepam without improvemen t of insomnia. Discussed trying trazodone instead. Will send prescripti on. Will send prescripti on for Requip for restless legs. Restless legs 08488903 G 25.81 Patient returns on February 08, [...] also send prescripti on for fluconazol e. [id number] Hanna Fournier PA-C [facility] [address] [place] [address] 04/18/2024 09:51:34 04/18/2024 11:21:47 Malignant tumor of ascending colon 569728063 C18.2 CT scan of the abdomen and [...] 8.2 hematocrit 29.0. MCV 67.9. Platelet count 832393. Normal cell differenti al. Low serum folate [...] infusional iron today. Will follow up for angela portillo. Patient is tearful and crying during her [...] current therapy. Metastatic malignant neoplasm to liver 66099279 C78.7 CT scan of the abdomen and [...] Findings concerning for metastatic colon cancer. Nausea 517982768 R11.0 As needed Zofran and Phenergan prescribed . Pain due t o neoplastic disease 6302156951 9102 G89.3 Right upper quadrant pain secondary to liver metastasis . Patient currently taking Tylenol. Discussed as needed oxycodone to limit Tylenol exposure. Anemia 386442133 D64.9 Right-side d colon mass concerning for malignancy . Will assess for any signs of iron deficiency . Most recent hemoglobin at 8.0. Concern for blood loss from colon mass. Patient reports dark stools. Adopted 390364496 Z62.89 8 Patient is adopted and discussed hereditary gene panel. Patient does have family history of her son having bladder cancer. Will send [facility] hereditary panel. Antineopla stic chemotherapy regimen 631088953 Z51.11 Week 1 5FU Leucovorin Vectibix on [...] without Vectibix on April 18, 2024. Hypokalemia 80633535 E87 .6 Patient returns on April 29, 2023. Potassium is low at 2.9. Will send prescripti on for potassium 20 mEq daily. Will follow-up labs again next week. Deep venou s thrombosis 005414988 I82.409 Patient developed right lower extremity pain and edema.Veno us duplex on May 28, 2023 with evidence of deep vein thrombosis . Started on Eliquis 5 mg 1 tab p.o. b.i.d.. Did not start with Eliquis starter pack due to recent bleeding. Patient had a DVT and a PE in 1990 after her hysterecto my. Mixed anxi ety and depressive disorder 432544985 F41.8 Patient returns on November 23, 2023. [...] prescripti on for Cymbalta. Atopic conjunctivitis 23 1211408 H10.12 Patient with conjunctiv itis of the left eye. Held Vectibix on December 07, 2023. Continue with current therapy. Will follow up again in 2 weeks. Iron defic iency anemia 33668891 D50.9 Will follow up labs Insomnia 361614320 G47.0 0 Patient returns on February 08, 2024. She has had difficulty sleeping for most of her life. She has tried multiple medication s without relief. She is tried Mirtazapin e and lorazepam without improvemen t of insomnia. Discussed trying trazodone instead. Will send prescripti on. Will send prescripti on for Requip for restless legs. Restless legs 01151541 G 25.81 Patient returns on February 08, [...] also send prescripti on for fluconazol e. [id number] Hanna Fournier PA-C [facility] [address] [place] [address] 05/02/2024 09:52:10 05/02/2024 10:44:11 Malignant tumor of ascending colon 232246408 C18.2 CT scan of the abdomen and [...] 8.2 hematocrit 29.0. MCV 67.9. Platelet count 643886. Normal cell differenti al. Low serum folate [...] current therapy. Metastatic malignant neoplasm to liver 40337883 C78.7 CT scan of the abdomen and [...] Findings concerning for metastatic colon cancer. Nausea 055502474 R11.0 As needed Zofran and Phenergan prescribed . Pain due t o neoplastic disease 8750308244 9102 G89.3 Right upper quadrant pain secondary to liver metastasis . Patient currently taking Tylenol. Discussed as needed oxycodone to limit Tylenol exposure. Anemia 976299665 D64.9 Right-side d colon mass concerning for malignancy . Will assess for any signs of iron deficiency . Most recent hemoglobin at 8.0. Concern for blood loss from colon mass. Patient reports dark stools. Adopted 817824084 Z62.89 8 Patient is adopted and discussed hereditary gene panel. Patient does have family history of her son having bladder cancer. Will send [facility] hereditary panel. Antineopla stic chemotherapy regimen 356805776 Z51.11 Week 1 5FU Leucovorin Vectibix on [...] without Vectibix on May 02, 2024. Hypokalemia 29766925 E87 .6 Patient returns on April 29, 2023. Potassium is low at 2.9. Will send prescripti on for potassium 20 mEq daily. Will follow-up labs again next week. Deep venou s thrombosis 882029022 I82.409 Patient developed right lower extremity pain and edema.Veno us duplex on May 28, 2023 with evidence of deep vein thrombosis . Started on Eliquis 5 mg 1 tab p.o. b.i.d.. Did not start with Eliquis starter pack due to recent bleeding. Patient had a DVT and a PE in 1990 after her hysterecto my. Mixed anxi ety and depressive disorder 583942597 F41.8 Patient returns on November 23, 2023. [...] prescripti on for Cymbalta. Atopic conjunctivitis 23 0428589 H10.12 Patient with conjunctiv itis of the left eye. Held Vectibix on December 07, 2023. Continue with current therapy. Will follow up again in 2 weeks. Iron defic iency anemia 26541644 D50.9 Will follow up labs Insomnia 199283254 G47.0 0 Patient returns on February 08, 2024. She has had difficulty sleeping for most of her life. She has tried multiple medication s without relief. She is tried Mirtazapin e and lorazepam without improvemen t of insomnia. Discussed trying trazodone instead. Will send prescripti on. Will send prescripti on for Requip for restless legs. Restless legs 30042245 G 25.81 Patient returns on February 08, [...] and took Diflucan tablet. Rash has resolved. [id number] Tomy King MD [facility] [address] [place] [address] 05/16/2024 10:11:10 05/16/2024 10:33:39 Malignant tumor of ascending colon 907788422 C18.2 CT scan of the abdomen and [...] 8.2 hematocrit 29.0. MCV 67.9. Platelet count 590296. Normal cell differenti al. Low serum folate [...] 16, 2024. Metastatic malignant neoplasm to liver 45252235 C78.7 CT scan of the abdomen and [...] Findings concerning for metastatic colon cancer. Nausea 785519894 R11.0 As needed Zofran and Phenergan prescribed . Pain due t o neoplastic disease 1775230332 9102 G89.3 Right upper quadrant pain secondary to liver metastasis . Patient currently taking Tylenol. Discussed as needed oxycodone to limit Tylenol exposure. Anemia 782918894 D64.9 Right-side d colon mass concerning for malignancy . Will assess for any signs of iron deficiency . Most recent hemoglobin at 8.0. Concern for blood loss from colon mass. Patient reports dark stools. Adopted 203571125 Z62.89 8 Patient is adopted and discussed hereditary gene panel. Patient does have family history of her son having bladder cancer. Will send [facility] hereditary panel. Antineopla stic chemotherapy regimen 081336531 Z51.11 Week 1 5FU Leucovorin Vectibix on [...] on May 16, 2024. Vectibix resumed. Hypokalemia 99937447 E87 .6 Patient returns on April 29, 2023. Potassium is low at 2.9. Will send prescripti on for potassium 20 mEq daily. Will follow-up labs again next week. Deep venou s thrombosis 117018586 I82.409 Patient developed right lower extremity pain [...] duplex. Mixed anxi ety and depressive disorder 423579349 F41.8 Patient returns on November 23, 2023. [...] prescripti on for Cymbalta. Atopic conjunctivitis 23 4113572 H10.12 Patient with conjunctiv itis of the left eye. Held Vectibix on December 07, 2023. Continue with current therapy. Will follow up again in 2 weeks. Iron defic iency anemia 18465947 D50.9 Will follow up labs Insomnia 364259641 G47.0 0 Patient returns on February 08, 2024. She has had difficulty sleeping for most of her life. She has tried multiple medication s without relief. She is tried Mirtazapin e and lorazepam without improvemen t of insomnia. Discussed trying trazodone instead. Will send prescripti on. Will send prescripti on for Requip for restless legs. Restless legs 43888399 G 25.81 Patient returns on February 08, 2024. She has had difficulty sleeping for most of her life. She has tried multiple medication s without relief. She is tried Mirtazapin e and lorazepam without improvemen t of insomnia. Discussed trying trazodone instead. Prescripti on sent for Requip for restless legs. [id number] Hanna Fournier PA-C [facility] [address] [place] [address] 05/30/2024 09:21:34 05/30/2024 11:05:52 Malignant tumor of ascending colon 317057811 C18.2 CT scan of the abdomen and [...] 8.2 hematocrit 29.0. MCV 67.9. Platelet count 042385. Normal cell differenti al. Low serum folate [...] up labs. Metastatic malignant neoplasm to liver 93379186 C78.7 CT scan of the abdomen and [...] Findings concerning for metastatic colon cancer. Nausea 428628137 R11.0 As needed Zofran and Phenergan prescribed . Patient returns on May 30, 2024. Patient has had intermitte nt nausea that occurs randomly. Will try scopolamin e patches. Pain due t o neoplastic disease 7633753924 9102 G89.3 Right upper quadrant pain secondary to liver metastasis . Patient currently taking Tylenol. Discussed as needed oxycodone to limit Tylenol exposure. Anemia 739907446 D64.9 Right-side d colon mass concerning for malignancy . Will assess for any signs of iron deficiency . Most recent hemoglobin at 8.0. Concern for blood loss from colon mass. Patient reports dark stools. Adopted 178926497 Z62.89 8 Patient is adopted and discussed hereditary gene panel. Patient does have family history of her son having bladder cancer. Will send [facility] hereditary panel. Antineopla stic chemotherapy regimen 553600012 Z51.11 Week 1 5FU Leucovorin Vectibix on [...] 2024. Patient will receive Vectibix today. Hypokalemia 46975586 E87 .6 Patient returns on April 29, 2023. Potassium is low at 2.9. Will send prescripti on for potassium 20 mEq daily. Will follow-up labs again next week. Deep venou s thrombosis 244834907 I82.409 Patient developed right lower extremity pain [...] duplex. 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 [...] prescripti on for Cymbalta. Atopic conjunctivitis 23 4638317 H10.12 Patient with conjunctiv itis of the left eye. Held Vectibix on December 07, 2023. Continue with current therapy. Will follow up again in 2 weeks. Iron defic iency anemia 43337398 D50.9 Will follow up labs Insomnia 775399484 G47.0 0 Patient returns on February 08, 2024. She has had difficulty sleeping for most of her life. She has tried multiple medication s without relief. She is tried Mirtazapin e and lorazepam without improvemen t of insomnia. Discussed trying trazodone instead. Will send prescripti on. Will send prescripti on for Requip for restless legs. Restless legs 59192819 G 25.81 Patient returns on February 08, [...] the area dry. Will follow-up. Generalized rash 7484693 06 R21 Patient returns on May 30, [...] to keep the area dry. Will follow-up. [id number] Hanna Fournier PA-C [facility] [address] [facility] [address] [place] [address] 06/27/2024 09:58:37 06/27/2024 10:53:58 Malignant tumor of ascending colon 570095790 C18.2 CT scan of the abdomen and [...] 8.2 hematocrit 29.0. MCV 67.9. Platelet count 354079. Normal cell differenti al. Low serum folate [...] up labs. Metastatic malignant neoplasm to liver 96258040 C78.7 CT scan of the abdomen and [...] Findings concerning for metastatic colon cancer. Nausea 383159204 R11.0 As needed Zofran and Phenergan prescribed . Discussed trying scopolamin e patches but her insurance wouldn't cover. Pain due t o neoplastic disease 4527971446 9102 G89.3 Right upper quadrant pain secondary to liver metastasis . Patient currently taking Tylenol. Discussed as needed oxycodone to limit Tylenol exposure. Anemia 207641767 D64.9 Right-side d colon mass concerning for malignancy . Will assess for any signs of iron deficiency . Most recent hemoglobin at 8.0. Concern for blood loss from colon mass. Patient reports dark stools. Adopted 296419090 Z62.89 8 Patient is adopted and discussed hereditary gene panel. Patient does have family history of her son having bladder cancer. Will send [facility] hereditary panel. Antineopla stic chemotherapy regimen 325444293 Z51.11 Week 1 5FU Leucovorin Vectibix on [...] Patient will receive not Vectibix today. Hypokalemia 16749483 E87 .6 Patient returns on April 29, 2023. Potassium is low at 2.9. Will send prescripti on for potassium 20 mEq daily. Will follow-up labs again next week. Deep venou s thrombosis 706126009 I82.409 Patient developed right lower extremity pain [...] duplex. Mixed anxi ety and depressive disorder 580752400 F41.8 Patient returns on November 23, 2023. [...] prescripti on for Cymbalta. Atopic conjunctivitis 23 5326808 H10.12 Patient with conjunctiv itis of the left eye. Held Vectibix on December 07, 2023. Continue with current therapy. Will follow up again in 2 weeks. Iron defic iency anemia 17404411 D50.9 Will follow up labs Insomnia 353644142 G47.0 0 Patient returns on February 08, 2024. She has had difficulty sleeping for most of her life. She has tried multiple medication s without relief. She is tried Mirtazapin e and lorazepam without improvemen t of insomnia. Discussed trying trazodone instead. Will send prescripti on. Will send prescripti on for Requip for restless legs. Restless legs 56283838 G 25.81 Patient returns on February 08, [...] patient has not received Vectibix. Generalized rash 5792749 06 R21 Patient returns on May 30, [...] clinic at [facility]. Congestive heart failure 91811820 I50.9 Patient returns on June 27, 2024. Since previous visit patient has been diagnosed with congestive heart failure and atrial fibrillati on. She has started lasix and is following with a cardiologi st. [id number] Hanna Fournier PA-C [facility] [address] [place] [address] 07/11/2024 09:55:48 07/11/2024 10:53:23 Malignant tumor of ascending colon 213569355 C18.2 CT scan of the abdomen and [...] 8.2 hematocrit 29.0. MCV 67.9. Platelet count 150517. Normal cell differenti al. Low serum folate [...] up labs. Metastatic malignant neoplasm to liver 84945514 C78.7 CT scan of the abdomen and [...] Findings concerning for metastatic colon cancer. Nausea 685861374 R11.0 As needed Zofran and Phenergan prescribed . Discussed trying scopolamin e patches but her insurance wouldn't cover. She is taking Zofran with relief. Pain due t o neoplastic disease 2344200716 9102 G89.3 She is taking hydrocodon e 7.5 mg b.i.d. Discussed taking medication every 4-6 hours as needed. Anemia 475705076 D64.9 Right-side d colon mass concerning for malignancy . Will assess for any signs of iron deficiency . Most recent hemoglobin at 8.0. Concern for blood loss from colon mass. Patient reports dark stools. Adopted 951875940 Z62.89 8 Patient is adopted and discussed hereditary gene panel. Patient does have family history of her son having bladder cancer. Will send [facility] hereditary panel. Antineopla stic chemotherapy regimen 633814304 Z51.11 Week 1 5FU Leucovorin Vectibix on [...] 2024. Patient will receive Vectibix today. Hypokalemia 00787300 E87 .6 Patient returns on April 29, 2023. Potassium is low at 2.9. Will send prescripti on for potassium 20 mEq daily. Will follow-up labs again next week. Deep venou s thrombosis 702439280 I82.409 Patient developed right lower extremity pain [...] duplex. Mixed anxi ety and depressive disorder 860623170 F41.8 Patient returns on November 23, 2023. [...] prescripti on for Cymbalta. Atopic conjunctivitis 23 4954890 H10.12 Patient with conjunctiv itis of the left eye. Held Vectibix on December 07, 2023. Continue with current therapy. Will follow up again in 2 weeks. Iron defic iency anemia 87962871 D50.9 Will follow up labs Insomnia 235697012 G47.0 0 Patient returns on February 08, 2024. She has had difficulty sleeping for most of her life. She has tried multiple medication s without relief. She is tried Mirtazapin e and lorazepam without improvemen t of insomnia. Discussed trying trazodone instead. Will send prescripti on. Will send prescripti on for Requip for restless legs. Restless legs 99371462 G 25.81 Patient returns on February 08, [...] patient has not received Vectibix. Generalized rash 0463217 06 R21 Patient returns on May 30, [...] clinic at [facility]. Congestive heart failure 07439855 I50.9 Patient returns on June 27, 2024. Since previous visit patient has been diagnosed with congestive heart failure and atrial fibrillati on. She has started lasix and is following with a cardiologi [facility] [id number] Jana España MD [facility] [address] [facility] [address] [place] [address] 07/06/2024 10:53:43 07/08/2024 03:53:47 Seen by palliative care service 917559334 Z51.5 Introduced services today. Dtr and son would be NOK - she feels important to start thinking about completion of LW/AD- I provided copies today [facility] and will plan to f/u on this is two weeks. Encouraged her to think about HCS/code status. Still wants to continue chemo and has scans next week - did not discuss hospice, but eligible at any point Pain due t o neoplastic disease 2824684811 9102 G89.3 Uncontroll ed, had lortab prescribed which manages pain well when she takes medication . Encouraged adherence. Mixed anxi ety and depressive disorder 100096864 F41.8 Uncontroll ed. Not taking cymbalta. Encouraged adherence and PRN ativan for breakthrou gh syptoms. Did not wish to pursue CBt at this time, will d/w Lesa for additional support options moving forward Nausea and vomiting 1693 2000 R11.2 Related to malignancy vs. Chemo. Improved with PRN and qAM zofran, likely related to chemo vs. malignancy Loss of appetite 2806215 6 R63.0 Related to malignancy . Not taking mirtazapin e. Does not want to add additional Rx at this itme or see nutritioni st. [id number] Hanna Fournier PA-C [facility] [address] [facility] [address] [place] [address] 07/25/2024 10:19:02 07/25/2024 10:39:35 Malignant tumor of ascending colon 899222237 C18.2 CT scan of the abdomen and [...] 8.2 hematocrit 29.0. MCV 67.9. Platelet count 806414. Normal cell differenti al. Low serum folate [...] Vectibix today. Metastatic malignant neoplasm to liver 73999720 C78.7 CT scan of the abdomen and [...] Findings concerning for metastatic colon cancer. Nausea 107421641 R11.0 As needed Zofran and Phenergan prescribed . Discussed trying scopolamin e patches but her insurance wouldn't cover. She is taking Zofran with relief. Pain due t o neoplastic disease [id number] 9102 G89.3 She is taking hydrocodon e 7.5 mg b.i.d. Discussed taking medication every 4-6 hours as needed. Anemia 258516134 D64.9 Right-side d colon mass concerning for malignancy . Will assess for any signs of iron deficiency . Hemoglobin previously 8.0. Concern for blood loss from colon mass. Patient reports dark stools. labs on July 25, 2024 with improvemen t of hemoglobin 12.6. Patient is currently receiving infusional iron. Adopted [id number] Z62.89 8 Patient is adopted and discussed hereditary gene panel. Patient does have family history of her son having bladder cancer. Will send [facility] hereditary panel. Antineopla stic chemotherapy regimen 262075068 Z51.11 Week 1 5FU Leucovorin Vectibix on [...] Patient will not receive Vectibix today. Hypokalemia 91067660 E87 .6 Patient returns on April 29, 2023. Potassium is low at 2.9. Will send prescripti on for potassium 20 mEq daily. Will follow-up labs again next week. Deep venou s thrombosis 340590901 I82.409 Patient developed right lower extremity pain [...] duplex. Mixed anxi ety and depressive disorder 813459890 F41.8 Patient returns on November 23, 2023. [...] reports depression has improved. Atopic conjunctivitis 23 7623819 H10.12 Patient with conjunctiv itis of the left eye. Held Vectibix on December 07, 2023. Continue with current therapy. Will follow up again in 2 weeks. Patient returns on July 25, 2024. She does have conjunctiv itis of the left eye. Will hold Vectibix today. Will follow up. Iron defic iency anemia 25168991 D50.9 Currently receiving infusional iron. Will continue to monitor. Insomnia 242460140 G47.0 0 Patient returns on February 08, 2024. She has had difficulty sleeping for most of her life. She has tried multiple medication s without relief. She is tried Mirtazapin e and lorazepam without improvemen t of insomnia. Discussed trying trazodone instead. Will send prescripti on. Will send prescripti on for Requip for restless legs. Restless legs 87430379 G 25.81 Patient returns on February 08, [...] with diflucan and nystain powder. Generalized rash 4087016 06 R21 Patient returns on May 30, [...] clinic at [facility]. Congestive heart failure 07378702 I50.9 Patient returns on June 27, 2024. Since previous visit patient has been diagnosed with congestive heart failure and atrial fibrillati on. She has started lasix and is following with a cardiologi . Cachexia 537835849 R64 Patient returns on July 25, 2024. Patient has had decreased appetite. Continues to lose weight. She has lost 4 more lbs since previous visit. She is drinking nutritiona l supplement s. Discussed appetite stimulant. Patient previously refused. Now she is agreeable to try Megace. Will send prescripti on. Will follow up for angela oakley [id number] Tomy King MD [facility] [address] [place] [address] 08/01/2024 11:10:37 08/01/2024 12:30:43 Malignant tumor of ascending colon 282337579 C18.2 CT scan of the abdomen and [...] 8.2 hematocrit 29.0. MCV 67.9. Platelet count 615915. Normal cell differenti al. Low serum folate [...] study published in September 2022 in the [place] [facility] of combined Avastin therapy with [...] Will follow-up Metastatic malignant neoplasm to liver 53607817 C78.7 CT scan of the abdomen and [...] Findings concerning for metastatic colon cancer. Nausea 648477080 R11.0 As needed Zofran and Phenergan prescribed . Discussed trying scopolamin e patches but her insurance wouldn't cover. She is taking Zofran with relief. Pain due t o neoplastic disease [id number] 9102 G89.3 She is taking hydrocodon e 7.5 mg b.i.d. Discussed taking medication every 4-6 hours as needed. Anemia 091331689 D64.9 Right-side d colon mass concerning for malignancy . Will assess for any signs of iron deficiency . Hemoglobin previously 8.0. Concern for blood loss from colon mass. Patient reports dark stools. labs on July 25, 2024 with improvemen t of hemoglobin 12.6. Patient is currently receiving infusional iron. Adopted 169867088 Z62.89 8 Patient is adopted and discussed hereditary gene panel. Patient does have family history of her son having bladder cancer. Will send [facility] hereditary panel. Antineopla stic chemotherapy regimen 991398182 Z51.11 Week 1 5FU Leucovorin Vectibix on [...] 2024 due to disease progressio n. Hypokalemia 94188222 E87 .6 Patient returns on April 29, 2023. Potassium is low at 2.9. Will send prescripti on for potassium 20 mEq daily. Will follow-up labs again next week. Deep venou s thrombosis 330721158 I82.409 Patient developed right lower extremity pain [...] duplex. Mixed anxi ety and depressive disorder 717401977 F41.8 Patient returns on November 23, 2023. [...] reports depression has improved. Atopic conjunctivitis 23 2983680 H10.12 Patient with conjunctiv itis of the left eye. Held Vectibix on December 07, 2023. Continue with current therapy. Will follow up again in 2 weeks. Patient returns on July 25, 2024. She does have conjunctiv itis of the left eye. Will hold Vectibix today. Will follow up. Iron defic iency anemia 88965363 D50.9 Currently receiving infusional iron. Will continue to monitor. Insomnia 917384394 G47.0 0 Patient returns on February 08, 2024. She has had difficulty sleeping for most of her life. She has tried multiple medication s without relief. She is tried Mirtazapin e and lorazepam without improvemen t of insomnia. Discussed trying trazodone instead. Will send prescripti on. Will send prescripti on for Requip for restless legs. Restless legs 64480370 G 25.81 Patient returns on February 08, [...] with diflucan and nystain powder. Generalized rash 3102361 06 R21 Patient returns on May 30, [...] clinic at [facility]. Congestive heart failure 35637239 I50.9 Patient returns on June 27, 2024. Since previous visit patient has been diagnosed with congestive heart failure and atrial fibrillati on. She has started lasix and is following with a cardiologi . Cachexia 066591505 R64 Patient returns on July 25, 2024. Patient has had decreased appetite. Continues to lose weight. She has lost 4 more lbs since previous visit. She is drinking nutritiona l supplement s. Discussed appetite stimulant. Patient previously refused. Now she is agreeable to try Megace. Will send prescripti on. Will follow up for angela oakley [id number] Hanna Fournier PA-C [facility] [address] [place] [address] 08/10/2024 09:37:37 08/10/2024 10:29:37 Malignant tumor of ascending colon 241981278 C18.2 CT scan of the abdomen and [...] 8.2 hematocrit 29.0. MCV 67.9. Platelet count 215603. Normal cell differenti al. Low serum folate [...] study published in September 2022 in the [place] [facility] of combined Avastin therapy with [...] liver lesions. Metastatic malignant neoplasm to liver 79657058 C78.7 CT scan of the abdomen and [...] patient is a candidate for radiation Nausea 517987526 R11.0 As needed Zofran and Phenergan prescribed . Discussed trying scopolamin e patches but her insurance wouldn't cover. She is taking Zofran with relief. Pain due t o neoplastic disease [id number] 9102 G89.3 She is taking hydrocodon e 7.5 mg b.i.d. Discussed taking medication every 4-6 hours as needed. Anemia 938853475 D64.9 Right-side d colon mass concerning for malignancy . Will assess for any signs of iron deficiency . Hemoglobin previously 8.0. Concern for blood loss from colon mass. Patient reports dark stools. Labs on August 10, 2024 with hemoglobin slightly low at 11.9. She is receiving infusional iron as needed. Adopted 821085335 Z62.89 8 Patient is adopted and discussed hereditary gene panel. Patient does have family history of her son having bladder cancer. [facility] hereditary panel sent Antineopla stic chemotherapy regimen 892248555 Z51.11 Week 1 5FU Leucovorin Vectibix on [...] monitor for tolerabili ty and toxicity. Hypokalemia 64839683 E87 .6 Currently taking for potassium 20 mEq daily. Will follow up labs. Mixed anxi ety and depressive disorder 942081628 F41.8 Patient returns on November 23, 2023. [...] reports depression has improved. Atopic conjunctivitis 23 8354955 H10.12 Conjunctiv itis due to Vectibix. This is improving. Iron defic iency anemia 59616734 D50.9 Currently receiving infusional iron as needed. Will continue to monitor. Insomnia 650643729 G47.0 0 Patient has had difficulty sleeping for most of her life. She has tried multiple medication s without relief. She is tried Mirtazapin e and lorazepam without improvemen t of insomnia. Discussed trying trazodone instead. Restless legs 99529716 G 25.81 Patient taking Requip for restless legs. Generalized rash 9367659 06 R21 Patient with rash due to Vectibix. This is improving. Atrial fibrillation 4943 6004 I48.91 Patient has been diagnosed with congestive heart failure and atrial fibrillati on. She has been started on Coumadin. She is following with the Coumadin clinic at [facility]. Congestive heart failure 14523474 I50.9 Patient has been diagnosed with congestive heart failure. She has started lasix and is following with a cardiologi st. Cachexia 088299119 R64 Patient has had decreased appetite and weight loss. She is drinking nutritiona l supplement s. Discussed appetite stimulant. Patient previously refused. She has started on Megace. Will continue to monitor History of deep vein thrombosis 400797103 Z86.718 Patient developed right lower extremity pain [...] repeat venous duplex. Drug therapy finding 309 515164 Z79.01 She continues on Coumadin due to a fib. She is following with the Coumadin clinic at [facility]. [id number] Hanna Fournier PA-C [facility] [address] [place] [address] 08/25/2024 09:02:23 08/25/2024 09:51:52 Antineoplastic chemotherapy regimen 087138204 Z51.11 Week 1 5FU Leucovorin Vectibix on [...] and toxicity. Malignant tumor of ascending colon 413278120 C18.2 CT scan of the abdomen and [...] 8.2 hematocrit 29.0. MCV 67.9. Platelet count 440592. Normal cell differenti al. Low serum folate [...] study published in September 2022 in the [place] [facility] of combined Avastin therapy with [...] liver lesions. Metastatic malignant neoplasm to liver 33746436 C78.7 CT scan of the abdomen and [...] patient is a candidate for radiation Nausea 734238674 R11.0 As needed Zofran and Phenergan prescribed . Discussed trying scopolamin e patches but her insurance wouldn't cover. She is taking Zofran with relief. Pain due t o neoplastic disease 8801966717 9102 G89.3 She is taking hydrocodon e [...] does take her current medication s Anemia 398220691 D64.9 Right-side d colon mass concerning for malignancy . Will assess for any signs of iron deficiency . Hemoglobin previously 8.0. Concern for blood loss from colon mass. Patient reports dark stools. Labs on August 10, 2024 with hemoglobin slightly low at 11.9. She is receiving infusional iron as needed. Adopted 512607178 Z62.89 8 Patient is adopted and discussed hereditary gene panel. Patient does have family history of her son having bladder cancer. [facility] hereditary panel sent Hypokalemia 51773318 E87 .6 Currently taking for potassium 20 mEq daily. Will follow up labs. Mixed anxi ety and depressive disorder 472419291 F41.8 Patient returns on November 23, 2023. [...] reports depression has improved. Atopic conjunctivitis 23 5203591 H10.12 Conjunctiv itis due to Vectibix. This is improving. Iron defic iency anemia 22190376 D50.9 Receiving infusional iron as needed. Will continue to monitor. Insomnia 667798114 G47.0 0 Patient has had difficulty sleeping for most of her life. She has tried multiple medication s without relief. She is tried Mirtazapin e and lorazepam without improvemen t of insomnia. Discussed trying trazodone instead. Restless legs 27322692 G 25.81 Patient taking Requip for restless legs. Generalized rash 7108667 06 R21 Rash due to Vectibix. This has improved. Atrial fibrillation 4943 6004 I48.91 Patient has been diagnosed with congestive heart failure and atrial fibrillati on. She has been started on Coumadin. She is following with the Coumadin clinic at [facility]. Congestive heart failure 73603009 I50.9 Patient has been diagnosed with congestive heart failure. She has started lasix and is following with a cardiologi st. Cachexia 392570172 R64 Patient has had decreased appetite and weight loss. She is drinking nutritiona l supplement s. Discussed appetite stimulant. Patient previously refused. She has started on Megace. She does not like the taste of Megace. Discussed Megace tablets instead of liquid but patient declines at this time. Will continue to monitor History of deep vein thrombosis 728940560 Z86.718 Patient developed right lower extremity pain [...] repeat venous duplex. Drug therapy finding 309 427354 Z79.01 She continues on Coumadin due to a fib. She is following with the Coumadin clinic at [facility]. Acute post traumatic headache 7156980370 68893 G44.319 Patient returns on August 25, 2024. [...] Internatio nal normalized ratio above reference range 612630938 R79.1 Patient returns on August 25, 2024. She is on Coumadin for atrial fibrillati on and her INR is elevated. She is going to the Coumadin Clinic for management . INR 8 today. She is going to hold Coumadin and contact Coumadin Clinic for directions today. Denies any bleeding at this time. [id number] Hanna Fournier PA-C [facility] [address] [facility] [address] [place] [address] 09/02/2024 11:29:36 09/02/2024 12:07:33 Antineoplastic chemotherapy regimen 964276359 Z51.11 Week 1 5FU Leucovorin Vectibix on [...] follow up. Malignant tumor of ascending colon 308694644 C18.2 CT scan of the abdomen and [...] 8.2 hematocrit 29.0. MCV 67.9. Platelet count 559373. Normal cell differenti al. Low serum folate [...] study published in September 2022 in the [place] [facility] of combined Avastin therapy with [...] liver lesions. Metastatic malignant neoplasm to liver 09501623 C78.7 CT scan of the abdomen and [...] patient is a candidate for radiation Nausea 066739652 R11.0 As needed Zofran and Phenergan prescribed [...] ons. Pain due t o neoplastic disease 6139121965 9102 G89.3 She is taking hydrocodon e [...] tab po every 3-4 hours instead. Anemia 533552942 D64.9 Right-side d colon mass concerning for malignancy . Will assess for any signs of iron deficiency . Hemoglobin previously 8.0. Concern for blood loss from colon mass. Patient reports dark stools. Labs on August 10, 2024 with hemoglobin slightly low at 11.9. She is receiving infusional iron as needed. Adopted 689554761 Z62.89 8 Patient is adopted and discussed hereditary gene panel. Patient does have family history of her son having bladder cancer. [facility] hereditary panel sent Hypokalemia 33807016 E87 .6 Currently taking for potassium 20 mEq daily. Will follow up labs. Mixed anxi ety and depressive disorder 575847744 F41.8 Patient returns on November 23, 2023. [...] reports depression has improved. Atopic conjunctivitis 23 7944584 H10.12 Conjunctiv itis due to Vectibix. This is improving. Iron defic iency anemia 19704335 D50.9 Receiving infusional iron as needed. Will continue to monitor. Insomnia 365127721 G47.0 0 Patient has had difficulty sleeping for most of her life. She has tried multiple medication s without relief. She is tried Mirtazapin e and lorazepam without improvemen t of insomnia. Discussed trying trazodone instead. Restless legs 27575489 G 25.81 Patient taking Requip for restless legs. Generalized rash 9552738 06 R21 Rash due to Vectibix. This has improved. Atrial fibrillation 4943 6004 I48.91 Patient has been diagnosed with congestive heart failure and atrial fibrillati on. She has been started on Coumadin. She is following with the Coumadin clinic at [facility]. Congestive heart failure 90076201 I50.9 Patient has been diagnosed with congestive heart failure. She has started lasix and is following with a cardiologi . Cachexia 715487208 R64 Patient has had decreased appetite and weight loss. She is drinking nutritiona l supplement s. Discussed appetite stimulant. Patient previously refused. She has started on Megace. She does not like the taste of Megace. Discussed Megace tablets instead of liquid but patient declines at this time. Will continue to monitor History of deep vein thrombosis 080114048 Z86.718 Patient developed right lower extremity pain [...] repeat venous duplex. Drug therapy finding 309 433355 Z79.01 She continues on Coumadin due to a fib. She is following with the Coumadin clinic at [facility]. Internatio nal normalized ratio above reference range 201691274 R79.1 Patient returns on August 25, 2024. She is on Coumadin for atrial fibrillati on and her INR is elevated. She is going to the Coumadin Clinic for management . INR 8 today. She is going to hold Coumadin and contact Coumadin Clinic for directions today. Denies any bleeding at this time. Diarrhea 99185551 R19.7 Patient with increased diarrhea, nausea, and vomiting for the past 4 days. She is taking Imodium and Lomotil without relief. She has a history of C diff. Will order stool studies today. Will check stool for C diff today. Dehydration 18392404 E86 .0 Patient returns on September 02, 2024. Patient with increased diarrhea, nausea, and vomiting for the past 4 days. No fever or chills. IV fluids along with Pepcid and Zofran today for dehydratio n. [id number] Hanna Fournier PA-C [facility] [address] [place] [address] 11/01/2024 13:00:10 11/01/2024 13:35:08 Antineoplastic chemotherapy regimen 185999720 Z51.11 Week 1 5FU Leucovorin Vectibix on [...] 25, 2024. Malignant tumor of ascending colon 508185427 C18.2 CT scan of the abdomen and [...] 8.2 hematocrit 29.0. MCV 67.9. Platelet count 936033. Normal cell differenti al. Low serum folate [...] nausea patient was taken for right hemicolect haely and anastomosi s on April 06, 2023.Patho [...] study published in September 2022 in the [place] [facility] of combined Avastin therapy with [...] malignancy . Metastatic malignant neoplasm to liver 03510082 C78.7 CT scan of the abdomen and [...] any treatment for her malignancy . Nausea 084795431 R11.0 As needed Zofran and Phenergan prescribed [...] ons. Pain due t o neoplastic disease 1024863056 9102 G89.3 Abdominal pain has improved and pain is controlled with current pain medication s. Anemia 433425093 D64.9 Right-side d colon mass concerning for malignancy . Will assess for any signs of iron deficiency . Hemoglobin previously 8.0. Concern for blood loss from colon mass. Patient reports dark stools. Labs on August 10, 2024 with hemoglobin slightly low at 11.9. She is receiving infusional iron as needed. Adopted 318537845 Z62.89 8 Patient is adopted and discussed hereditary gene panel. Patient does have family history of her son having bladder cancer. [facility] hereditary panel sent Hypokalemia 73399876 E87 .6 Currently taking for potassium 20 mEq daily. Will follow up labs. 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 [...] reports depression has improved. Atopic conjunctivitis 23 0806075 H10.12 Conjunctiv itis due to Vectibix. This has improved. Iron defic iency anemia 89683635 D50.9 Receiving infusional iron as needed. Will continue to monitor. Insomnia 717870693 G47.0 0 Patient has had difficulty sleeping for most of her life. She has tried multiple medication s without relief. She is tried Mirtazapin e and lorazepam without improvemen t of insomnia. Discussed trying trazodone instead. Restless legs 89298145 G 25.81 Patient taking Requip for restless legs. Generalized rash 1712781 06 R21 Rash due to Vectibix. This has improved. Atrial fibrillation 4943 6004 I48.91 Patient has been diagnosed with congestive heart failure and atrial fibrillati on. She has been started on Coumadin. She is following with the Coumadin clinic at [facility]. Congestive heart failure 34415800 I50.9 Patient has been diagnosed with congestive heart failure. She has started lasix and is following with a cardiologi . Cachexia 618857564 R64 Patient has had decreased appetite and weight loss. She is drinking nutritiona l supplement s. Discussed appetite stimulant. Patient previously refused. She has started on Megace. She does not like the taste of Megace. Discussed Megace tablets instead of liquid but patient declines at this time. Will continue to monitor History of deep vein thrombosis 096892789 Z86.718 Patient developed right lower extremity pain [...] repeat venous duplex. Drug therapy finding 309 993688 Z79.01 She continues on Coumadin due to a fib. She is following with the Coumadin clinic at [facility]. Candidiasis of skin 4988 3006 B37.2 [...] Guarantor Name 06/02/2023 [place]ICARE[place] Vicky Roblero [id number] Vicky Roblero 06/02/2023 1 [employer] (MEDICARE SUPPLEMENT) Vicky Roblero [id number] Vicky Roblero 10/01/2024 2 [employer] Vicky Roblero [id number] Vicky Roblero 06/02/2023 1 MEDICARE B-[place]: [place] Vicky Roblero [id number] Vicky Roblero 06/02/2023 2 [employer] (MEDICARE SUPPLEMENT) Vicky Roblero [id number] Vicky Roblero 10/30/2024 1 [place] Vicky Roblero [id number] Vicky Roblero Notes Date Note Type Note Provider Name and Address Organization Details Recorded Time 08/01/2024 text/html 78 yo F returns for evaluation of metastatic colon cancer. Patient recently seen on February 17, 2023 in the emergency room at [facility] with abdominal pain. Patient reported epigastric [...] 8.2 hematocrit 29.0. MCV 67.9. Platelet count 143171. Normal cell differential. Low serum folate of [...] with metastatic colorectal cancer. Discussed chemotherapy with [place] based regimen with 5FU Leucovorin if [...] study published in September 2022 in the [place] [facility] of combined Avastin therapy with [place]. Phase 3 trial with median overall survival of 10.8 months in combination therapy verses 7.5 months [place] alone. Progression-free survival 5.6 months versus 2.4 months in [place] alone therapy. Tomy King MD [address], [place], [address], [place] - [facility] - [place] & [place] 08/01/2024 13:08:52 08/10/2024 text/html 78 yo F returns for evaluation of metastatic colon cancer. Patient recently seen on February 17, 2023 in the emergency room at [facility] with abdominal pain. Patient reported epigastric [...] 8.2 hematocrit 29.0. MCV 67.9. Platelet count 709095. Normal cell differential. Low serum folate of [...] with metastatic colorectal cancer. Discussed chemotherapy with [place] based regimen with 5FU Leucovorin if [...] study published in September 2022 in the [place] [facility] of combined Avastin therapy with [...] Will monitor for tolerability and toxicity. Hanna Fournier PA-C [address] [facility], [place], [address], [place] - [facility] - [place] 08/10/2024 11:13:32 08/25/2024 text/html 78 yo F returns for evaluation of metastatic colon cancer. Patient recently seen on February 17, 2023 in the emergency room at [facility] with abdominal pain. Patient reported epigastric [...] 8.2 hematocrit 29.0. MCV 67.9. Platelet count 493997. Normal cell differential. Low serum folate of [...] with metastatic colorectal cancer. Discussed chemotherapy with [place] based regimen with 5FU Leucovorin if [...] study published in September 2022 in the [place] [facility] of combined Avastin therapy with [...] Will monitor for tolerability and toxicity. Hanna Fournier PA-C [address] , [place], [address], [place] - [facility] - [place] & [place] 08/25/2024 10:43:13 09/02/2024 text/html 78 yo F returns for evaluation of metastatic colon cancer. Patient recently seen on February 17, 2023 in the emergency room at [facility] with abdominal pain. Patient reported epigastric [...] 8.2 hematocrit 29.0. MCV 67.9. Platelet count 046130. Normal cell differential. Low serum folate of [...] with metastatic colorectal cancer. Discussed chemotherapy with [place] based regimen with 5FU Leucovorin if [...] study published in September 2022 in the [place] [facility] of combined Avastin therapy with [...] next chemotherapy cycle. Will follow up. Hanna Fournier PA-C [address] , [place], [address], [place] [facility] 09/02/2024 12:55:35 11/01/2024 text/html 79 yo F returns for evaluation of metastatic colon cancer. Patient recently seen on February 17, 2023 in the emergency room at [facility] with abdominal pain. Patient reported epigastric [...] 8.2 hematocrit 29.0. MCV 67.9. Platelet count 615124. Normal cell differential. Low serum folate of [...] with metastatic colorectal cancer. Discussed chemotherapy with [place] based regimen with 5FU Leucovorin if [...] study published in September 2022 in the [place] [facility] of combined Avastin therapy with [...] for nystatin to have if needed. Hanna Fournier PA-C [address], [place], [address], [facility] - [facility] - [place] 11/01/2024 13:57:44 OBGyn Episode No OBEpisode recorded.
--- OUTSIDE RECORDS SUMMARY | 2024-11-15 09:16 | XMS_ITS | Encounter Summary ---
Author Organization [place] [address] Care Team Providers Care Medical Coding Manager Name Role Phone Luis Villasenor MD Unavailable [phone] Luis Villasenor MD Primary Care Provider Encounter Details Date Type Department Care Team (Late st Contact Info) Description 09/26/2010 Orders Only SEP [facility] [address] [place] [address] Jennifer Nagel MD [address] [place] [address] Social History Tobacco Use Types Packs/Day Years Used Date Smoking Tobacco: Former Cigarettes Smokeless Tobacco: Never Alcohol Use Standard Drinks/Week Comments No 0 (1 standard drink = 0.6 oz pur e alcohol) Sexually Active Control Partners Comments Never Comments No Sex and Gender Information Value Date Recorded Sex Assigned at Not on file Legal Sex Female 10:35 PM EDT Gender Identity Not on file Sexual Orientation Not on file documented as of this encounter Plan of Treatment Not on file documented as of this encounter Procedures Procedure Name Priority Date/Time Associated Diagnosis Comments ECHO - HISTORICAL Routine 09/26/2010 12: 00 AM EDT documented in this encounter Results * ECHO - HISTORICAL (09/26/2010 12:00 AM EDT) Anatomical Region Laterality Modality Other 09/26/2010 Narrative 07/09/2011 11:19 AM EST NOTICE: This report was electronically copied on 08/04/2011 from historical data generated by a practice prior to that practice using [facility] for Medical Records. Performing Provider: JENNIFER NAGEL Jennifer Nagel MD IMG ECHO ORDERABLES Final Result documented in this encounter Visit Diagnoses Not on filedocumented in this encounter Care Teams Medical Coding Manager Relationship Specialty Start Date End Date Luis Villasenor MD [address] [place] [address] PCP - OBGYN 01/09/10 Luis Villasenor MD [address] [place] [address] PCP - General 01/09/10 documented as of this encounter
[2024-11-15 10:57] LABS: INR 7.76 (0.9-1.1)
== END 2024-11-15 11:47 ==
PROVIDERS: PCP Nurse Practitioner Family; Visit Provider Physician Assistant
DX: Z79.01 Long term (current) use of anticoagulants (principal)
CPT/HCPCS: 36415; 85610; 99211; G0463

== ENCOUNTER 2024-11-18 11:41 | Outpatient (CLI) | payer MEDICARE, SELFPAY ==
--- OUTSIDE RECORDS SUMMARY | 2024-09-26 13:00 | XMS_ITS | Encounter Summary ---
Author Organization [place] [address] Care Team Providers Care Market Superintendent Name Role Phone Luis Villasenor MD Unavailable [phone] Luis Villasenor MD Primary Care Provider Reason for Visit * Reason Comments Hospital Follow Up Encounter Details Date Type Department Care Team (Latest Contact Info) Description 09/26/2024 1:00 PM EDT [facility] Visit [facility] [address] 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 Not hard at all 06/14/2024 PHQ-2 Answer Date Recorded PHQ-2 Total Score 0 06/14/2024 PRAPARE - Transportation Answer Date Re corded In the past 12 months, has l ack of transportation kept you from medical appointments or from getting medications? No 06/01 In the past 12 months, has l ack of transportation kept you from meetings, work, or from getting things needed for daily living? No 06/14/2024 Sexually Active Control Partners Comments Never Comments No Sex and Gender Information Value Date Recorded Sex Assigned at Not on file Legal Sex Female 10:35 PM EDT Gender Identity Not on file Sexual Orientation Not on file documented as of this encounter Last Filed Vital Signs Vital Sign Reading Time Taken Comments Blood Pressure 110/70 09/26/2024 1:00 PM EDT Pulse 87 09/26/2024 1:00 PM EDT Temperature 37.1 C (98.7 F) 09/26/2024 1:00 PM EDT Respiratory Rate 18 09/26/2024 1:00 PM EDT Oxygen Saturation 100% 09/26/2024 1:00 PM EDT Inhaled Oxygen Concentration - - Weight 89.4 kg (197 lb) 09/26/2024 1:00 PM EDT Height 162.6 cm (5' 4 ) 09/26/2024 1:00 PM EDT Body Mass Index 33.81 09/26/2024 1:00 PM EDT documented in this encounter Functional Status * Is the person deaf or does he/she have serious difficulty hearing? Answer Date of Assessment Author No 02/09/2020 8:59 AM EDT Nghia Redmond CMA * Is the person blind or does he/she have serious difficulty seeing even when wearing glasses? Answer Date of Assessment Author No 02/09/2020 8:59 AM EDT Nghia Redmond CMA * Does this person have serious difficulty walking or climbing stairs? Answer Date of Assessment Author No 02/09/2020 8:59 AM EDT Nghia Redmond CMA * Does this person have difficulty dressing or bathing? Answer Date of Assessment Author No 02/09/2020 8:59 AM EDT Nghia Redmond CMA * Because of a physical, mental or emotional condition, does this person have difficulty doing errands alone such as visiting a doctor's office or shopping? Answer Date of Assessment Author No 02/09/2020 8:59 AM BASILT Nghia Redmond CMA documented as of this encounter Mental Status * Because of a physical, mental or emotional condition, does this person have serious difficulty concentrating, remembering or making decisions? Answer Entry Date Author No 02/09/2020 8:59 AM EDT Nghia Redmond CMA documented in this encounter Ordered Prescriptions Prescription Sig Dispense Quantity Refills Last Filled Start Date End Date fUROsemide (LASIX) 40 mg Oral TabletIndications: Acute on chronic heart failure with preserved ejection fraction (HCC) Take 1 Tablet by mouth daily. 90 Tablet 3 10/02/2024 ondansetron (ZOFRAN) 4 mg Oral Tablet Take 2 Tablets by mouth every 6 hours as needed for Nausea for up to 10 days. 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 Youngblood, cardiology. 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 Youngblood, cardiology. Taking 5mg M/W/F and 2.5mg other days Acute on chronic heart failure with preserved ejection fraction (HCC) -continue cardiology care with Dr. Youngblood, [facility] Orders: fUROsemide (LASIX) 40 mg Oral Tablet; Take 1 Tablet by mouth daily. Progress Note: Vitals: 09/26/24 1300 BP: 110/70 Pulse: 87 Resp: 18 Temp: 98.7 ??F (37.1 ??C) TempSrc: Temporal SpO2: 100% Weight: 197 lb (89.4 kg) Height: 5' 4 (1.626 m) Body mass index is 33.81 kg/m??. SUBJECTIVE: Chief Complaint Patient presents with Hospital Follow Up HPI: Hospital Follow-Up: Hospital/ER Follow-Up: Ms. Roblero is a 79 y.o. female here for hospital follow up. She was admitted to [facility] on 09/19/2024 and discharged 09/20/2024 with a diagnosis of HFpEF exacerbation after presenting via EMS with swelling and shortness of breath. During hospitalization, patient found to have oxygen saturation of 70% on RA with progressive SOB and swelling. Clinically improved with IV lasix that was transitioned to oral lasix 40mg daily. She had a CT chest for PE rule out. Upon discharge she was saturating 99% RA. She was also found to have subtherapeutic INR with hx. of PE and DVT. Coumadin is managed at coumadin clinic at [facility]. Hospital discharge summary, most recent labs and imaging, admission notes reviewed: Yes She is compliant with discharge medications / treatment. She is not having medication side effects. Review of Systems Constitutional: Positive for appetite change and fatigue. Negative for fever and unexpected weight change. HENT: Negative. Eyes: Negative. Respiratory: Negative for cough, chest tightness and shortness of breath. Cardiovascular: Negative. Gastrointestinal: Positive for abdominal distention, abdominal pain, diarrhea, nausea and vomiting. Genitourinary: Negative for difficulty urinating and dysuria. Musculoskeletal: Positive for back pain and gait problem. Skin: Negative. Neurological: Positive for weakness and light-headedness. Psychiatric/Behavioral: Negative. OBJECTIVE: Physical Exam Vitals reviewed. Constitutional: General: She is not in acute distress. HENT: Nose: Nose normal. Mouth/Throat: Mouth: Mucous membranes are moist. Eyes: Conjunctiva/sclera: Conjunctivae normal. Cardiovascular: Rate and Rhythm: Normal rate and regular rhythm. Pulmonary: Effort: Pulmonary effort is normal. Breath sounds: Normal breath sounds. Musculoskeletal: Right lower leg: No edema. Left lower leg: No edema. Skin: General: Skin is warm. Coloration: Skin is pale. Skin is not jaundiced. Neurological: Mental Status: She is alert and oriented to person, place, and time. Psychiatric: Mood and Affect: Mood normal. Thought Content: Thought content normal. documented in this encounter Miscellaneous Notes * Addendum Note - Karis Nolan APRN - 09/26/2024 1:00 PM EDTAddended by: KARIS NOLAN on: 10/11/2024 12:00 PM Modules accepted: Level of Service documented in this encounter Plan of Treatment Not on file documented as of this encounter Goals Goal Patient Goal Type Associated Problems Recent Progress Patient-Stated? 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 Stop Taking at Discharge 09/26/2024 potassium chloride SA (K-DUR;KLOR-CON) 10 mEq Oral Tab Sust.Rel. Particle/CrystalIndicati ons:Irregular heart beat,Essential hypertension,Hypothyroid ism, unspecified type,Primary osteoarthritis involving multiple joints,Glucose intolerance (impaired glucose tolerance),History of DVT (deep vein thrombosis),History of pulmonary embolism,Vitamin D deficiency,Living will, counseling/discussion,DN R (do not resuscitate),Health care maintenance,Idiopathic chronic gout of multiple sites without tophus TAKE 2 TABLETS EVERY DAY (MD OFFICE VISIT REQUIRED FOR FURTHER REFILLS) DELETE-Therapy completed 08/22/2019 09/26/2024 fUROsemide (LASIX) 20 mg Oral Tablet Take 1 Tablet by mouth daily. 09/19/2024 10/02/2024 documented as of this encounter Historical Medications * This list may reflect changes made after this encounter. famotidine (PEPCID) 20 mg Oral Tablet Take 20 mg by mouth 2 times daily. 11/14/2024 potassium chloride (KLOR-CON M) 20 mEq Oral Tab Sust.Rel. Particle/Crystal Take 20 mEq by mouth daily. 11/04/2024 DULoxetine (CYMBALTA) 30 mg Oral Capsule, Delayed Release(E.C.) Take 30 mg by mouth daily. 11/14/2024 added in this encounter Additional Health Concerns Assessment Noted Time A fall risk assessment has been complete d for the patient 06/14/2024 9:03 AM EST documented as of this encounter Care Teams Market Superintendent Relationship Specialty Start Date End Date Luis Villasenor MD [address] [place] [phone] PCP - OBGYN 01/09/10 Luis Villasenor MD [address] [place] [phone] PCP - General 01/09/10 documented as of this encounter
--- OUTSIDE RECORDS SUMMARY | 2024-10-26 11:00 | XMS_ITS | Encounter Summary ---
Author Organization [place] [address] Care Team Providers Care Advance Agent Name Role Phone Luis Villasenor MD Unavailable [phone] Luis Villasenor MD Primary Care Provider Reason for Visit * Reason Comments Labs Only Encounter Details Date Type Department Care Team (Late Contact Info) Description 10/26/2024 11:00 AM EDT Clinical Support TODD [place] [address] [place] [address] Freya Coon [facility] [place] [address] [place] [address] Flank pain Social History Tobacco Use Types [...] (NO STAIN) (10/26/2024 11:17 AM EDT) Pathologist [facility] Culture Multiple bacterial species isolated from urine consistent with urogenital commensal organisms. 10/27/2024 10:23 PM EDT [employer] Urine STRUCTURE OF URINARY TRACT PROPER / Unknown 10/26/2024 11:17 AM EDT 10/26/2024 11:17 AM EDT us Amarilis Nolan APRN MICROBIOLOGY - GENERAL OR DERABLES Final Result [employer] [address] [facility] , [place] [address] * (ABNORMAL) SEP URINALYSIS POC [...] ORDERABLES Fi nal Result TODD [place] [address] [place] [address] * (ABNORMAL) COMPREHENSIVE METABOLIC PANEL (10/26/2024 11:03 [...] 10/26/2024 4:28 PM EDT [facility] Albumin 3.5 3.2 - 4.6 gm/dL 10/26/2024 4:28 PM EDT [facility] Total Protein 7.4 6.4 - 8.3 gm/dL 10/26/2024 4:28 PM EDT [facility] Bili Total 0.7 0.2 - 1.3 mg/dL 10/26/2024 4:28 PM EDT [facility] ALT 11 <=41 U/L 10/26/2024 4:28 PM EDT [facility] AST 28 <=40 U/L 10/26/2024 4:28 PM EDT [facility] Alk Phos 259(H) 36 - 123 U/L 10/26/2024 4:28 PM EDT [facility] eGFR (CKD-EPIcr 2020) 43(L) >=60 mL/min/1.7 3 m2 10/26/2024 4:28 PM EDT [facility] Comment:Estimated GFR was ca lculated using the CKD-EPIcr (2020) equation refit without race. The equation is recommended by the National Kidney Foundation - [place] Society of Nephrology Task Force. Blood VENOUS BLOOD / Unknown Venipuncture / Unknown 10/26/2024 11:03 AM EDT 10/26/2024 11:03 AM EDT us Amarilis Nolan LEAD ATHLETE CHEMISTRY ORDERABLES Kell l Result [facility] [address] [facility] , [place] [address] documented in this encounter Visit Diagnoses Diagnosis Flank pain Abdominal pain, unspecified site documented in this encounter Additional Health Concerns Assessment Noted Time A fall risk assessment has been complete d for the patient 06/14/2024 9:03 AM EST documented as of this encounter Care Teams Advance Agent Relationship Specialty Start Date End Date Luis Villasenor MD [address] [place] [address] PCP - OBGYN 01/09/10 Luis Villasenor MD [address] [place], [place] [address] PCP - General 01/09/10 documented as of this encounter
--- OUTSIDE RECORDS SUMMARY | 2024-11-04 11:15 | XMS_ITS | Encounter Summary ---
Author Organization [place] [address] Care Team Providers Care Aquatic Life Laborer Name Role Phone Luis Villasenor MD Unavailable [phone] Luis Villasenor MD Primary Care Provider [phone] Reason for Visit * Reason Comments Hospital Follow Up Diverticulitis Encounter Details Date Type Department Care Team (Latest Contact Info) Description 11/04/2024 11:15 AM EDT Office Visit SEP Sarah [address] [place] [id number] Amarilis Nolan, ROUGH RIB GRADER [address] [place] [address] Diverticulitis of large intestine without perforation or abscess without bleeding (Primary Dx); Peripheral edema; Malignant tumor of ascending colon (HCC); 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) Social History Tobacco Use Types Packs/Day Years [...] Sign Reading Time Taken Comments Blood Pressure 118/70 11/04/2024 11:10 AM EDT Pulse 77 11/04/2024 11:10 AM EDT Temperature 36.1 C (97 F) 11/04/2024 11:10 AM EDT Respiratory Rate 18 11/04/2024 11:10 AM EDT Oxygen Saturation 98% 11/04/2024 11:10 AM EDT Inhaled Oxygen Concentration - - Weight 97.5 kg (215 lb) 11/04/2024 11:10 AM EDT Height 162.6 cm (5' 4 ) 11/04/2024 11:10 AM EDT Body Mass Index 36.9 11/04/2024 11:10 AM EDT documented in this encounter Functional Status [...] Nghia Aguirre CMA documented in this encounter Ordered Prescriptions Prescription Sig Dispense Quantity Refills Last Filled Start Date End Date spironolactone (ALDACTONE) 25 mg Oral TabletIndications:P eripheral edema Take 1 Tablet by mouth daily. 90 Tablet 3 11/04/2024 potassium chloride (KLOR-CON M) 20 mEq Oral Tab Sust.Rel. Particle/CrystalInd ications:Peripheral edema Take 1 Tablet by mouth daily. 90 Tablet 11/04/2024 documented in this encounter Progress Notes * Amarilis Nolan, ROUGH RIB GRADER - 11/04/2024 11:15 AM EDT Assessment & Plan 1. Post-hospitalization follow-up. - Swelling in the right leg has been persistent and worsened over the past two days. - Currently taking 40 mg of Lasix daily and 20 mEq of potassium. - Prescription for potassium has been issued. Spironolactone will be added to enhance diuresis. - Advised to monitor for any signs of wet cough or increased shortness of breath and to contact theclinic immediately if these symptoms occur. 2. Cancer with metastasis to lymph nodes. - Reports that cancer has grown and spread to some lymph nodes. - Not currently undergoing chemotherapy. - Advised to continue monthly visits to oncologist for pain management and port flushes. - Hospice care has been discussed but not ready to pursue it at this time. 3. Shortness of breath. - Experienced mild shortness of breath while walking back to the clinic room, considered normal forthe distance. - Has oxygen at home but has only needed to use it once since hospital discharge. - Advised to use oxygen as needed and to report any significant changes in breathing. -Has home health nurse and has completed PT/OT. Dx/Orders: Diagnoses and all orders for this visit: Diverticulitis of large intestine without perforation or abscess without bleeding Comments: inpatient hospital stay at [facility] November 03, symptoms resolved Peripheral edema - potassium chloride (KLOR-CON M) 20 mEq Oral Tab Sust.Rel. Particle/Crystal; Take 1 Tablet by mouth daily. Dispense: 90 Tablet; Refill: 0 - spironolactone (ALDACTONE) 25 mg Oral Tablet; Take 1 Tablet by mouth daily. Dispense: 90 Tablet; Refill: 3 Malignant tumor of ascending colon (HCC) (Chronic) Overview: CT scan 01/2023 with multiple masses of liver and ascending colon thickening. 04/2023, R hemicolectomy and anastomosis, pathology of invasive moderately differentiated adenocarcinoma. Metastatic adenocarcinoma in 2/10 lymph nodes. Wedge resection of the liver with metastatic adenocarcinoma consistent with colon primary. Continues with chemotherapy [id number]. 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 04/2023, R hemicolectomy and anastomosis, pathology of invasive moderately differentiated adenocarcinoma. Metastatic adenocarcinoma in 2/10 lymph nodes. Wedge resection of the liver with metastatic adenocarcinoma consistent with colon primary. Continues with chemotherapy [id number]. Managed by [facility] Return in about 6 weeks (around 12/16/2024) for 6 week follow up, video visit ok. Subjective CHEMA Roblero is a 79 y.o. female Chief Complaint Patient presents with Hospital Follow Up Diverticulitis History of Present Illness The patient is a 79-year-old female here for a hospital follow-up. She was admitted to [facility] for diverticulitis. Denies ongoing symptoms since hospital discharge. She reports persistent swelling in her right leg, which has been a consistent issue over the past year. The swelling slightly subsides at night but remains significant. She describes the sensation jose her leg is on the verge of bursting by the end of the day. This morning, she experienced difficulty in wearing her shoe due to the swelling. She is currently on a daily regimen of Lasix 40 mg and potassium 20 mEq. She does not report any exacerbation of shortness of breath. She has oxygen at home but has only needed to use it once since her hospital discharge. A home health nurse visited her this morning. She recently consulted with her oncologist, who informed her of the progression of her cancer and its metastasis to some lymph nodes. Despite this, she is not undergoing chemotherapy. She has been advised to consult with her oncologist monthly for pain management. She was offered hospice care but declined, expressing a preference for outpatient treatment. She has discontinued occupational and physical therapy services. She uses a walker with a seat and a cane for mobility. Review of Systems Constitutional: Positive for appetite change and fatigue. Negative for fever. HENT: Negative. Respiratory: Positive for cough and shortness of breath. Negative for wheezing. Cardiovascular: Positive for leg swelling. Negative for palpitations. Gastrointestinal: Positive for abdominal pain. Negative for blood in stool, diarrhea, nausea and vomiting. Genitourinary: Negative for dysuria. Skin: Negative. Neurological: Negative. Psychiatric/Behavioral: Negative. Objective Blood pressure 118/70, pulse 77, temperature 97 ??F (36.1 ??C), temperature source Temporal, resp. rate 18, height 5' 4 (1.626 m), weight 215 lb (97.5 kg), SpO2 98%, not currently . Body mass index is 36.9 kg/m??. Physical Exam Vitals reviewed. Constitutional: General: She is not in acute distress. HENT: Nose: Nose normal. Mouth/Throat: Mouth: Mucous membranes are moist. Eyes: Conjunctiva/sclera: Conjunctivae normal. Cardiovascular: Rate and Rhythm: Normal rate and regular rhythm. Pulmonary: Effort: Pulmonary effort is normal. Breath sounds: Decreased air movement present. No rales. Abdominal: General: There is distension (mild, at baseline). Musculoskeletal: Cervical back: Neck supple. Right lower le+ Pitting Edema present. Left lower le+ Pitting Edema present. Skin: General: Skin is warm. Coloration: Skin is not jaundiced. Neurological: Mental Status: She is alert and oriented to person, place, and time. Psychiatric: Mood and Affect: Mood normal. Thought Content: Thought content normal. Results The provider educated the patient (or legal sales representative business courses) on the use of the ambient listening artificial intelligence tool, [employer]. They were informed that this AI tool processes the conversation to generate a clinical note with the expected benefit of improved accuracy while achieving an improved encounter experience for the patient and provider.?The provider explained that the medical information captured by the AI tool including, but not limited to, diagnoses and treatment plan would be protected in accordance with applicable privacy laws and that all diagnoses and treatment decisions would be made by the provider. The provider explained that the note generated will be reviewed bythe provider for accuracy to minimize potential errors.? The patient was given an opportunity to ask questions and opt out of proceeding with the use of the AI tool. After being informed of such information, the patient (or legal sales representative business courses), and each individual in attendance with the patient, verbally consented to the use of the AI tool. documented in this encounter Plan of Treatment Not on file documented as of this encounter Goals Goal Patient Goal Type Associated Problems Recent Progress Patient-Stated? 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 Particle/Crystal Take 20 mEq by mouth daily. Reorder 11/04/2024 documented as of this encounter Additional Health Concerns Assessment Noted Time A fall risk assessment has been complete d for the patient 06/14/2024 9:03 AM EST documented as of this encounter Care Teams Aquatic Life Laborer Relationship Specialty Start Date End Date Luis Villasenor MD [address] [place] [id number] PCP - OBGYN 01/09/10 Luis Villasenor MD [address] [place] [id number] PCP - General 01/09/10 documented as of this encounter
--- OUTSIDE RECORDS SUMMARY | 2024-11-14 09:00 | XMS_ITS | Encounter Summary ---
Author [place] [address] Care Team Providers Care Linoleum Layer Helper Name Role Phone Luis Villasenor MD Unavailable [phone] Luis Villasenor MD Primary Care Provider [phone] Reason for Visit * Reason Comments Follow Up Needs labs, feeling drained, wants a b-12 Encounter Details Date Type Department Care Team (Late Contact Info) Description 11/14/2024 9:00 AM EDT Office Visit SEP Sarah [address] 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 Youngblood, cardiology, [facility] Orders: - warfarin (COUMADIN) 5 mg Oral [...] Gran% 0.6 % Lymph Percent 9.9 % Oliver Percent 8.3 % Eos Percent 3.5 % Baso Percent 0.6 % Neut # 7.7 (H) 1.6 - 6.1 x10(3)/mcL IMMGRAN# 0.1 0.0 - 0.1 x10(3)/mcL Lymph # 1.0 (L) 1.2 - 3.9 x10(3)/mcL Oliver # 0.8 0.3 - 0.9 x10(3)/mcL Eos# [...] The provider educated the patient (or legal compliance representative dealer) on the use of the ambient listening artificial intelligence tool, [employer]. They were informed that this AI tool [...] of such information, the patient (or legal compliance representative dealer), and each individual in attendance with the [...] 11/14/2024 3:44 PM EDT [facility] MCH 28.3 26.0 - 34.0 pg 11/14/2024 3:44 PM EDT [facility] MCHC 30.4(L) 30.7 - 35.5 g/dL 11/14/2024 3:44 PM EDT [facility] RDW 14.8 <=14.9 % 11/14/2024 3:44 PM EDT [facility] Platelet 375(H) 155 - 369 x10(3)/mcL 11/14/2024 3:44 PM EDT [facility] MPV 9.6 8.8 - 12.5 fL 11/14/2024 3:44 PM EDT [facility] Neut Percent 77.1 % 11/14/2024 3:44 PM EDT [facility] Comment:Neutrophils equals s egs plus bands Imm Gran% 0.6 % 11/14/2024 3:44 PM EDT [facility] Comment:Automated count of m etamyelocytes, myelocytes and promyelocytes. Lymph Percent 9.9 % 11/14/2024 3:44 PM EDT [facility] Oliver Percent 8.3 % 11/14/2024 3:44 PM EDT [facility] Eos Percent 3.5 % 11/14/2024 3:44 PM EDT [facility] Baso Percent 0.6 % 11/14/2024 3:44 PM EDT [facility] Neut # 7.7(H) 1.6 - 6.1 x10(3)/mcL 11/14/2024 3:44 PM EDT [facility] Comment:Neutrophils equals s egs plus bands IMMGRAN# 0.1 0.0 - 0.1 x10(3)/mcL 11/14/2024 3:44 PM EDT [facility] Comment:Automated count of m etamyelocytes, myelocytes and promyelocytes. An absolute IG <0.1 is reported as 0.0. Lymph # 1.0(L) 1.2 - 3.9 x10(3)/mcL 11/14/2024 3:44 PM EDT [facility] Oliver # 0.8 0.3 - 0.9 x10(3)/mcL 11/14/2024 3:44 PM EDT [facility] Eos# 0.4 0.0 - 0.5 x10(3)/mcL 11/14/2024 3:44 PM EDT [facility] Baso # 0.1 0.0 - 0.1 x10(3)/mcL 11/14/2024 3:44 PM EDT [facility] Blood VENOUS BLOOD / Unknown Venipuncture / Unknown 11/14/2024 10:07 AM EDT 11/14/2024 10:07 AM EDT us Amarilis Nolan ADOBE FLEX DEVELOPER HEMATOLOGY ORDERABLES Fin al Result [facility] [address] [facility] , [place] [address] * (ABNORMAL) COMPREHENSIVE METABOLIC PANEL (11/14/2024 10:07 [...] 11/14/2024 4:07 PM EDT [facility] Albumin 3.4 3.2 - 4.6 gm/dL 11/14/2024 4:07 PM EDT [facility], [facility] Total Protein 7.8 6.4 - 8.3 gm/dL 11/14/2024 4:07 PM EDT [facility], [facility] Bili Total 0.6 0.2 - 1.3 mg/dL 11/14/2024 4:07 PM EDT [facility], [facility] ALT <5 <=41 U/L 11/14/2024 4:07 PM EDT [facility] AST 23 <=40 U/L 11/14/2024 4:07 PM EDT [facility], [facility] Alk Phos 465(H) 36 - 123 U/L 11/14/2024 4:07 PM EDT [facility] eGFR (CKD-EPIcr 2020) 39(L) >=60 mL/min/1.7 3 m2 11/14/2024 4:07 PM EDT [facility] Comment:Estimated GFR was ca lculated using the CKD-EPIcr (2020) equation refit without race. The equation is recommended by the National Kidney Foundation - [place] [employer] of Nephrology Task Force. Blood VENOUS BLOOD / Unknown Venipuncture / Unknown 11/14/2024 10:07 AM EDT 11/14/2024 10:07 AM EDT Amarilis Nolan ADOBE FLEX DEVELOPER CHEMISTRY ORDERABLES Kell orlando Result [facility], [facility] [address] [facility] , [address] [place] [id number] * (ABNORMAL) FERRITIN (11/14/2024 10:07 AM EDT) Ferritin 728(H) 30 - 150 ng/mL 11/14/2024 4:07 PM EDT [facility], [facility] Comment:The lower threshold of 30 is not [...] 11/14/2024 10:07 AM EDT Narrative [facility] - 11/14/2024 4:07 PM EDT Ingestion of rocio doses of biotin (>5 mg/day) taken within 8 hours of drawing blood sample can interfere with this immunoassay test. Amarilis Nolan APRN CHEMISTRY ORDERABLES Kell l Result Performing Organization Address City/[facility] Co de Phone Number [facility], [facility] [address] [facility] , [place] [address] * (ABNORMAL) IRON+TIBC (11/14/2024 10:07 AM EDT) Iron 26(L) 30 - 160 mcg/dL 11/14/2024 4:07 PM EDT [facility] Transferrin 153(L) 200 - 360 mg/dL 11/14/2024 4:07 PM EDT [facility] Transferrin Saturation 12(L) 20 - 50 % 11/14/2024 4:07 PM EDT [facility] TIBC 214(L) 250 - 400 mcg/dL 11/14/2024 4:07 PM EDT [facility] Blood VENOUS BLOOD / Unknown Venipuncture / Unknown 11/14/2024 10:07 AM EDT 11/14/2024 10:07 AM EDT Amarilis Nolan APRN CHEMISTRY ORDERABLES Kell l Result Performing Organization Address City/[facility]/ZIP Co de Phone Number [facility], [facility] [address] [facility] , [place] [address] * VITAMIN B12/ FOLIC ACID (11/14/2024 10:07 AM EDT) Vitamin B12 801 232 - 1,245 pg/mL 11/14/2024 4:02 PM EDT [facility] Folate 9.89 >=4.80 ng/mL 11/14/2024 4:02 PM EDT [facility] Blood VENOUS BLOOD / Unknown Venipuncture / Unknown 11/14/2024 10:07 AM EDT 11/14/2024 10:07 AM EDT Narrative [facility] - 11/14/2024 4:02 PM EDT Ingestion of rocio doses of biotin (>5 mg/day) taken within 8 hours of drawing blood sample can interfere with this immunoassay test. us Amarilis Nolan APRN CHEMISTRY ORDERABLES Kell darion Result [facility] [address] [facility] , [address] [place] [id number] documented in this encounter Visit Diagnoses Diagnosis [...] documented as of this encounter Care Teams Linoleum Layer Helper Relationship Specialty Start Date End Date Luis Villasenor MD [address] [place] [id number] PCP - OBGYN 01/09/10 Luis Villasenor MD [address] [place] [id number] PCP - General 01/09/10 documented as of this encounter
--- OUTSIDE RECORDS SUMMARY | 2024-11-18 11:43 | XMS_ITS | Encounter Summary ---
Author Organization [place] [address] Care Team Providers Care Control Valve Mechanic Name Role Phone Luis Villasenor MD Unavailable [phone] Luis Villasenor MD Primary Care Provider [phone] Reason for Visit * Reason Onset Date Comments 911/Red Flag 09/19/2024 possible blood c lot Encounter Details Date Type Department Care Team (Late st Contact Info) Description 09/19/2024 Nurse Triage SEP Sarah [facility] [place] [address] Luis Villasenor MD [address] [facility] [place] [address] Peripheral edema [...] 124/78(2024 9:10 AM EDT) No Nyla, Grace, AIRPLANE FUELER Maintain a healthy diet, exercise regularly and [...] documented as of this encounter Care Teams Control Valve Mechanic Relationship Specialty Start Date End Date Luis Villasenor MD [address] [facility] [place] [address] PCP - OBGYN 01/09/10 Luis Villasenor MD [address] [facility] [place] [address] PCP - General 01/09/10 documented as of this encounter
--- OUTSIDE RECORDS SUMMARY | 2024-11-18 11:43 | XMS_ITS | Encounter Summary ---
Author Organization [place] [address] Care Team Providers Care Drawing Kiln Supervisor Name Role Phone Luis Villasenor MD Unavailable [phone] Luis Villasenor MD Primary Care Provider Reason for Visit * Reason Onset Date Comments Orders 09/22/2024 personal touch [facility] care Encounter Details Date Type Department Care Team (Late st Contact Info) Description 09/22/2024 Telephone SEP Sarah [facility] [place] [address] Luis Villasenor MD COUNTRY [facility] [place] [address] Orders (personal touch [...] 09/22/2024 11:42 AM EDT Verbals given to Losi * Telephone Encounter - Jodi Bailey LPN - 09/22/2024 11:20 AM EDT Select the most appropriate reason for this telephone message: Order Request Who is requesting the Order(s): Home Health Facility: [facility] (Caller name: lois ) What Orders are being requested: [facility] Reason Orders are Needed (Diagnosis): check over vital - head to toe assessment and medication education Is a verbal order being requested: Yes If [facility], where should the order be faxed [...] documented as of this encounter Care Teams Drawing Kiln Supervisor Relationship Specialty Start Date End Date Luis Villasenor MD [address] [place] [address] PCP - OBGYN 01/09/10 Luis Villasenor MD [address] [place] [phone] PCP - General 01/09/10 documented as of this encounter
--- OUTSIDE RECORDS SUMMARY | 2024-11-18 11:43 | XMS_ITS | Encounter Summary ---
Author Organization [place] [address] Care Team Providers Care Media Marketing Coordinator Name Role Phone Luis Villasenor MD Unavailable [phone] Luis Villasenor MD Primary Care Provider Reason for Visit * Reason Onset Date Comments Orders 09/30/2024 SN,verbal Encounter Details Date Type Department Care Team (Late Contact Info) Description 09/30/2024 Telephone SEP Sarah [facility] [place] [address] Luis Villasenor MD [place] [facility] [address] Orders (SN,verbal ) Social History Tobacco [...] name: Ivis) What Orders are being requested: [facility] Reason Orders are Needed (Diagnosis): increase frequency for more education Is a verbal order being requested: Yes If non-[facility], where should the order be [...] documented as of this encounter Care Teams Media Marketing Coordinator Relationship Specialty Start Date End Date Luis Villasenor MD [address] [place] [address] PCP - OBGYN 01/09/10 Luis Villasenor MD [address] [place] [phone] PCP - General 01/09/10 documented as of this encounter
--- OUTSIDE RECORDS SUMMARY | 2024-11-18 11:44 | XMS_ITS | Encounter Summary ---
Author Organization [place] [address] Care Team Providers Care Machine Repairer Name Role Phone Luis Villasenor MD Unavailable [phone] Luis Villasenor MD Primary Care Provider Reason for Visit * Reason Onset Date Comments Other 10/11/2024 FYI- pt is wanti palliative care, home health asking if pcp would like to do this. Encounter Details Date Type Department Care Team (Late st Contact Info) Description 10/11/2024 Telephone SEP Sarah [address] [place] [address] Luis Villasenor MD [address] [place] [address] Other (FYI- pt is wanting palliative [...] relationship to patient if not the patient): [facility] home health- Yarelis What is needed OR [...] as of this encounter Care Teams Machine Repairer Relationship Specialty Start Date End Date Luis Villasenor MD [address] [place] [address] PCP - OBGYN 01/09/10 Luis Villasenor MD [address] [place] [address] PCP - General 01/09/10 documented as of this encounter
--- OUTSIDE RECORDS SUMMARY | 2024-11-18 11:44 | XMS_ITS | Encounter Summary ---
Author Organization [place] [address] Care Team Providers Care Mathematics Faculty Member Name Role Phone Luis Villasenor MD Unavailable [phone] Luis Villasenor MD Primary Care Provider Reason for Visit * Reason Onset Date Comments Other 11/01/2024 Encounter Details Date Type Department Care Team (Late Contact Info) Description 11/01/2024 Telephone SEP Sarah [address] [place] [address] Luis Villasenor MD [address] [place] [address] Other Social History Tobacco Use Types [...] documented as of this encounter Care Teams Mathematics Faculty Member Relationship Specialty Start Date End Date Luis Villasenor MD [address] [place] [phone] PCP - OBGYN 01/09/10 Luis Villasenor MD [address] [place] [phone] PCP - General 01/09/10 documented as of this encounter
--- OUTSIDE RECORDS SUMMARY | 2024-11-18 11:44 | XMS_ITS | Encounter Summary ---
Author Organization [place] [address] Care Team Providers Care Group Leader Name Role Phone Luis Villasenor MD Unavailable [phone] Luis Villasenor MD Primary Care Provider Encounter Details Date Type Department Care Team (Late Contact Info) Description 10/26/2024 Orders Only SEP Sarah [address] [place] [phone] Amarilis Nolan, OFFSET PRINTING OPERATOR [address] [place] [address] Flank pain (Primary Dx) Social History [...] EDT 10/26/2024 11:17 AM EDT Amarilis Nolan OFFSET PRINTING OPERATOR MICROBIOLOGY - GENERAL OR DERABLES Final Result [facility] [address] [facility] [facility] , [place] [address] * (ABNORMAL) COMPREHENSIVE METABOLIC PANEL (10/26/2024 11:03 [...] 10/26/2024 4:28 PM EDT [facility] AST 28 <=40 U/L 10/26/2024 4:28 PM EDT [facility] Alk Phos 259(H) 36 - 123 U/L 10/26/2024 4:28 PM EDT [facility] eGFR (CKD-EPIcr 2020) 43(L) >=60 mL/min/1.7 3 m2 10/26/2024 4:28 PM EDT [facility] Comment:Estimated GFR was ca lculated using the CKD-EPIcr (2020) equation refit without race. The equation is recommended by the National Kidney Foundation - [place] [employer] of Nephrology Task Force. Blood VENOUS BLOOD / Unknown Venipuncture / Unknown 10/26/2024 11:03 AM EDT 10/26/2024 11:03 AM EDT Amarilis Nolan OFFSET PRINTING OPERATOR CHEMISTRY ORDERABLES Kell orlando Result [facility] [address] [facility] , [place] [address] documented in this encounter Visit Diagnoses Diagnosis Flank pain- Primary Abdominal pain, unspecified site documented in this encounter Additional Health Concerns Assessment Noted Time A fall risk assessment has been complete d for the patient 06/14/2024 9:03 AM EST documented as of this encounter Care Teams Group Leader Relationship Specialty Start Date End Date Luis Villasenor MD [address] [place] [phone] PCP - OBGYN 01/09/10 Luis Villasenor MD [address] [place] [phone] PCP - General 01/09/10 documented as of this encounter
--- OUTSIDE RECORDS SUMMARY | 2024-11-18 11:44 | XMS_ITS | Encounter Summary ---
Author Organization [place] [address] Care Team Providers Care Hotel Casino Floorperson Name Role Phone Luis Villasenor MD Unavailable [phone] Luis Villasenor MD Primary Care Provider [phone] Encounter Details Date Type Department Care Team (Latest Contact Info) Description 10/28/2024 Results Follow-Up SEP Sarah [address] [place] [phone] Amarilis Nolan, MUSIC MANAGER [address] [place] [address] COMPREHENSIVE METABOLIC PANEL, URINE CULTURE (NO [...] documented as of this encounter Care Teams Hotel Casino Floorperson Relationship Specialty Start Date End Date Luis Villasenor MD [address] [place] [phone] PCP - OBGYN 01/09/10 Luis Villasenor MD [address] [place] [phone] PCP - General 01/09/10 documented as of this encounter
--- OUTSIDE RECORDS SUMMARY | 2024-11-18 11:44 | XMS_ITS | Encounter Summary ---
Author Organization [place] [address] Care Team Providers Care Macadam Raker Name Role Phone Luis Villasenor MD Unavailable [phone] Luis Villasenor MD Primary Care Provider Encounter Details Date Type Department Care Team (Late Contact Info) Description 11/11/2024 Orders Only SEP Sarah [address] [place] [phone] Amarilis Nolan, VACUUM SYSTEM TESTER [address] [place] [address] Flank pain (Primary Dx); Blood loss; [...] 3:44 PM EDT [facility] [place] Percent 8.3 % 11/14/2024 3:44 PM EDT [facility] Eos Percent 3.5 % 11/14/2024 3:44 PM EDT [facility] Bas[place] Percent 0.6 % 11/14/2024 3:44 PM EDT [facility] Neut # 7.7(H) 1.6 - 6.1 x10(3)/mcL 11/14/2024 3:44 PM EDT [facility] Comment:Neutrophils equals s egs plus bands IMMGRAN# 0.1 0.0 - 0.1 x10(3)/[facility] 11/14/2024 3:44 PM EDT [facility] Comment:Automated count of m etamyelocytes, myelocytes and promyelocytes. An absolute IG <0.1 is reported as 0.0. Lymph # 1.0(L) 1.2 - 3.9 x10(3)/[facility] 11/14/2024 3:44 PM EDT [facility] [place] # 0.8 0.3 - 0.9 x10(3)/[facility] 11/14/2024 3:44 PM EDT [facility] Eos# 0.4 0.0 - 0.5 x10(3)/[facility] 11/14/2024 3:44 PM EDT [facility] Baso # 0.1 0.0 - 0.1 x10(3)/[facility] 11/14/2024 3:44 PM EDT [facility] Blood VENOUS BLOOD / Unknown Venipuncture / Unknown 11/14/2024 10:07 AM EDT 11/14/2024 10:07 AM EDT Amarilis Nolan VACUUM SYSTEM TESTER HEMATOLOGY ORDERABLES Fin al Result [facility] [address] [facility] , [place] [address] * (ABNORMAL) COMPREHENSIVE METABOLIC PANEL (11/14/2024 10:07 AM EDT) Sodium 133(L) 136 - 145 mmol/L 11/14/2024 4:07 PM EDT [facility] Potassium 4.5 3.5 - 5.0 mmol/L 11/14/2024 4:07 PM EDT [facility] Chloride 94(L) 98 - 107 mmol/L 11/14/2024 4:07 PM EDT [facility] Total CO2 29 22 - 29 mmol/L 11/14/2024 4:07 PM EDT [facility] Anion Gap 10 7 - 16 mmol/L 11/14/2024 4:07 PM EDT [facility] Calcium 9.2 8.8 - 10.4 mg/dL 11/14/2024 4:07 PM EDT [facility] Glucose Lvl 122(H) 70 - 99 mg/dL 11/14/2024 4:07 PM EDT [facility] BUN 15 8 - 23 mg/dL 11/14/2024 4:07 PM EDT [facility] Creatinine 1.38(H) 0.51 - 1.30 mg/dL 11/14/2024 4:07 PM EDT [facility] Albumin 3.4 3.2 - 4.6 gm/dL 11/14/2024 4:07 PM EDT [facility] Total Protein 7.8 6.4 - 8.3 gm/dL 11/14/2024 4:07 PM EDT [facility] Bili Total 0.6 0.2 - 1.3 mg/dL 11/14/2024 4:07 PM EDT [facility] ALT <5 <=41 U/L 11/14/2024 4:07 PM EDT [facility] AST 23 <=40 U/L 11/14/2024 4:07 PM EDT [facility] Alk Phos 465(H) 36 - 123 U/L 11/14/2024 4:07 PM EDT [facility] eGFR (CKD-EPIcr 2020) 39(L) >=60 mL/min/1.7 3 m2 11/14/2024 4:07 PM EDT [facility] Comment:Estimated GFR was ca lculated using the CKD-EPIcr (2020) equation refit without race. The equation is recommended by the National Kidney Foundation - [place] [employer] of Nephrology Task Force. Blood VENOUS BLOOD / Unknown Venipuncture / Unknown 11/14/2024 10:07 AM EDT 11/14/2024 10:07 AM EDT us Amarilis Nolan VACUUM SYSTEM TESTER CHEMISTRY ORDERABLES Kell orlando Result [facility] [address] [facility] , [address] [place], [place] [id number] documented in this encounter Visit Diagnoses Diagnosis Flank pain- Primary Abdominal pain, unspecified site Blood loss Hemorrhage, unspecified Dehydration documented in this encounter Additional Health Concerns Assessment Noted Time A fall risk assessment has been complete d for the patient 06/14/2024 9:03 AM EST documented as of this encounter Care Teams Macadam Raker Relationship Specialty Start Date End Date Luis Villasenor MD [address] [place] [phone] PCP - OBGYN 01/09/10 Luis Villasenor MD [address] [place] [phone] PCP - General 01/09/10 documented as of this encounter
--- OUTSIDE RECORDS SUMMARY | 2024-11-18 11:44 | XMS_ITS | Encounter Summary ---
Author Organization [place] [address] Care Team Providers Care Educational Advisor Name Role Phone Luis Villasenor MD Unavailable [phone] Luis Villasenor MD Primary Care Provider [phone] Reason for Visit * Reason Onset Date Comments Orders 10/07/2024 VO for OT Encounter Details Date Type Department Care Team (Late Contact Info) Description 10/07/2024 Telephone SEP Sarah [facility] [place] [address] Luis Villasenor MD COUNTRY [facility] [place] [address] Orders (VO for OT) Social History [...] a verbal order being requested: Yes If non-[facility], where should the order be [...] documented as of this encounter Care Teams Educational Advisor Relationship Specialty Start Date End Date Luis Villasenor MD [address] [place] [phone] PCP - OBGYN 01/09/10 Luis Villasenor MD [address] [place] [phone] PCP - General 01/09/10 documented as of this encounter
--- OUTSIDE RECORDS SUMMARY | 2024-11-18 11:44 | XMS_ITS | Encounter Summary ---
Author Organization [place] [address] Care Team Providers Care Gas Operations Analyst Name Role Phone Luis Villasenor MD Unavailable [phone] Luis Villasenor MD Primary Care Provider [phone] Reason for Visit * Reason Onset Date Comments Relaying Information 10/26/2024 Reporting n ew issues with pain. Encounter Details Date Type Department Care Team (Late st Contact Info) Description 10/26/2024 Telephone SEP Sarah [facility] [place] [address] [address] Luis Villasenor MD [employer] [facility] [address] [place] [address] Relaying Information (Reporting new issues with [...] documented as of this encounter Care Teams Gas Operations Analyst Relationship Specialty Start Date End Date Luis Villasenor MD [address] [employer] [address] [place] [phone] PCP - OBGYN 01/09/10 Luis Villasenor MD [address] [employer] [facility] [address] [place] [phone] PCP - General 01/09/10 documented as of this encounter
--- OUTSIDE RECORDS SUMMARY | 2024-11-18 11:44 | XMS_ITS | Continuity of Care Document ---
Author Organization [facility] Address [address] [place] [address] Care Team Providers Care Managing Manager Name Role Phone ADDY GONZALES General Surgeon CARLOS A COATS Primary Care Provider VERONIKA RIVER President & Ceo Assessment No assessment recorded. Plan of Treatment Reminders Order Date Submit Date Provider Last Modified By Organization Details Last Modified Time Details Appointments OV EST 30 2024 11:00A M Hanna Snider PA-C Not available Not available Not available OV EST 30 2024 11:00A M Hanna Snider PA-C Not available Not available Not available Lab carcinoem bryonic Ag, quant, serum or plasma 2024 025 [email or web address] [facility], [address] [place], [address], 11/08/2024 10:04:49 CMP, serum or plasma 2024 025 ISABEL [facility], [address] [place], [address], 11/01/2024 15:54:32 CBC w/ diff 2024 025 [email or web address] [facility], [address] [place], [address], 11/08/2024 10:04:49 Referral None recorded. Procedures None recorded. Surgeries None recorded. Imaging None recorded. Medication Orders nystatin 100,000 unit/gram topical powder 2024 025 [id number], [address] [place], [address], 11/01/2024 13:56:59 Patient TargetsNo targets recorded. Patient InstructionsNo instructions recorded. Reason for Referral None Reported. Problems Name Problem SNOMED Code Status Onset Date Resolution Date Notes Provider Name and Address Organization Details Recorded Time Headache 60179175 Active 2024 Christine yusuf, [place] - [facility] & [place] 5 10:27:12 Metastatic malignant neoplasm to liver 16294242 Active [address], [facility] [address] , [place] - [facility] & [place] 3 14:27:25 Mass of colon 713336303 Active [address], [place], [address] , [place] [facility] & [place] 3 14:27:30 Anemia 588068365 [facility] [address] [facility] [address] , [place] [facility] & [place] 3 14:27:36 Nausea and vomiting 66749321 Active [address] [place], [address] , [place] [facility] & [place] 3 14:27:46 Unintentional weight loss 879799855 [facility] [address] [facility] [facility] [facility] [address] , [place] - [facility] & [place] 3 16:13:07 Night sweats 47902569 Active [address] [place], [address] , [facility] & [place] 3 16:13:12 Problem Notes Documentation Provider Name and Address Organization Details Recorded Time Oncology Patient Navigator : ONN met with pt at [facility] with medical oncology. Pt states she is doing well at this time. Hospice consult was briefly discussed and pt declined at this time. ONN encouraged pt to reach out may any needs/concerns arise. [email or web address] [place] 11/01/2024 13:52:48 Procedures Surgical History Date Name Laterality Status Provider Name and Address Organization Details Recorded Time 04/29/20 23 Venipuncture completed Hanna Snider PA-C [address] [facility], [place], [address], [facility] & [place] 04/27/2023 15:05:29 04/15/20 23 Venipuncture completed Stephanie [facility] & [place] 04/15/2023 15:24:55 hysterectomy completed [facility] & [place] 03/11/2023 15:30:22 extraction of cataract completed Laurel [facility] & [place] 03/11/2023 15:30:36 excision of colon completed Loree [facility] & [place] 04/21/2023 11:32:07 Imaging Results None recorded. Procedure Notes None recorded. Medical Equipment None Reported. Allergies Allergen ID Allergen Name Allergen Category Reaction Reaction Severity Criticality Documentation Date Start Date Code Code System Note Provider Name and Address Organization Details Recorded Time 23481 tetracycl ine medicatio n hives Not available high 02/19/2023 24858 RxNorm Brandy [email or web address] & [place] 14:03:33 Medications Name Sig Start Date Stop [...] Last Updated DateTime 162.56 cm 33.5 kg/m2 32251.5 1 g 97.6 [degF] 98 % 98 % 75 /min 185 mm[Hg] 79 mm[Hg] [facility] & [place] 13:16:39 Social History Question Answer Notes LastModified by [employer] Details LastModified Time Tobacco Smoking Status Never Smoker Brandy yusuf, [facility] & [place] 02/19/2023 14:02:59 What Is Your Level Of Caffeine Consumption? None [email or web address] Information not available 02/19/2023 What Was The Date Of Your Most Recent Tobacco Screening? 11/23/2023 [email or web address] Information not available 11/23/2023 Has Tobacco Cessation Counseling Been Provided? No [email or web address] Information not available 07/13/2023 Sex: Unknown Functional Status Question Answer Note LastModified by Organizat ion Details LastModified Time Do you use any illicit or recreational drugs? No [email or web address] Information not available 02/19/2023 Do you or have you ever used any other forms of tobacco or nicotine? No [email or web address] Information not available 02/19/2023 What is your level of alcohol consumption? None [email or web address] Information not available 02/19/2023 Mental Status None recorded. Family History Nothing Reported. Medical History No medical history recorded. Gynecological HistoryNo gynecological history recorded. Obstetrics History GPAL:G 0 P 0 0 0 0 Immunizations Vaccine Type Date Status Note Provider Nam e and Address Organization Details Recorded Time pneumococcal polysaccharide PPV23 7 completed Stephanie Maravilla [facility] & [place] 12/21/2023 09:56:34 Past Encounters Encounter ID Performer Location Encounter Start Date Encounter Closed Date Diagnosis/Indication Diagnosis SNOMED-CT Code Diagnosis ICD10 Code Diagnosis Note [id number] Hanna Snider PA-C [facility] [address] [place] [address] 11/01/2024 13:00:10 11/01/2024 13:35:08 Antineoplastic chemotherapy regimen 673265049 Z51.11 Week 1 5FU Leucovorin Vectibix on [...] 25, 2024. Malignant tumor of ascending colon 421472256 C18.2 CT scan of the abdomen and [...] 8.2 hematocrit 29.0. MCV 67.9. Platelet count 623678. Normal cell differenti al. Low serum folate [...] study published in September 2022 in the [place] [facility] of combined Avastin therapy with [...] malignancy . Metastatic malignant neoplasm to liver 53159274 C78.7 CT scan of the abdomen and [...] any treatment for her malignancy . Nausea 042117077 R11.0 As needed Zofran and Phenergan prescribed [...] ons. Pain due t o neoplastic disease 3865993456 9102 G89.3 Abdominal pain has improved and pain is controlled with current pain medication s. Anemia 058114516 D64.9 Right-side d colon mass concerning for malignancy . Will assess for any signs of iron deficiency . Hemoglobin previously 8.0. Concern for blood loss from colon mass. Patient reports dark stools. Labs on August 10, 2024 with hemoglobin slightly low at 11.9. She is receiving infusional iron as needed. Adopted 373436029 Z62.89 8 Patient is adopted and discussed hereditary gene panel. Patient does have family history of her son having bladder cancer. Jose Martin hereditary panel sent Hypokalemia 34319791 E87 .6 Currently taking for potassium 20 mEq daily. Will follow up labs. 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 [...] reports depression has improved. Atopic conjunctivitis 23 7583939 H10.12 Conjunctiv itis due to Vectibix. This has improved. Iron defic iency anemia 00954718 D50.9 Receiving infusional iron as needed. Will continue to monitor. Insomnia 316827798 G47.0 0 Patient has had difficulty sleeping for most of her life. She has tried multiple medication s without relief. She is tried Mirtazapin e and lorazepam without improvemen t of insomnia. Discussed trying trazodone instead. Restless legs 18547156 G 25.81 Patient taking Requip for restless legs. Generalized rash 4112462 06 R21 Rash due to Vectibix. This has improved. Atrial fibrillation 4943 6004 I48.91 Patient has been diagnosed with congestive heart failure and atrial fibrillati on. She has been started on Coumadin. She is following with the Coumadin clinic at [facility]. Congestive heart failure 04986510 I50.9 Patient has been diagnosed with congestive heart failure. She has started lasix and is following with a cardiologi st. Cachexia 912923953 R64 Patient has had decreased appetite and weight loss. She is drinking nutritiona l supplement s. Discussed appetite stimulant. Patient previously refused. She has started on Megace. She does not like the taste of Megace. Discussed Megace tablets instead of liquid but patient declines at this time. Will continue to monitor History of deep vein thrombosis 389574740 Z86.488 Patient developed right lower extremity pain and edema.Veno us duplex on May 28, 2023 with evidence of deep vein thrombosis . Started on Eliquis 5 mg 1 tab p.o. b.i.d.. Did not start with Eliquis starter pack due to recent bleeding. Patient had a DVT and a PE in 1990 after her hysterecto my.Clot resolution on repeat venous duplex. Drug therapy finding 309 971084 Z79.01 She continues on Coumadin due to a fib. She is following with the Coumadin clinic at [facility]. Candidiasis of skin 4988 3006 B37.2 [...] Name 11/01/2024 1 [place] Vicky Roblero [id number] Vicky Roblero 11/01/2024 2 [employer] (MEDICARE SUPPLEMENT) Vicky Roblero [id number] Vicky Roblero Notes Date Note Type Note Provider Name and Address Organization Details Recorded Time 11/01/2024 text/html 79 yo F returns for evaluation of metastatic colon cancer. Patient recently seen on February 17, 2023 in the emergency room at [facility] with abdominal pain. Patient reported epigastric [...] 8.2 hematocrit 29.0. MCV 67.9. Platelet count 915498. Normal cell differential. Low serum folate of [...] with metastatic colorectal cancer. Discussed chemotherapy with [place] based regimen with 5FU Leucovorin if [...] study published in September 2022 in the [place] [facility] of combined Avastin therapy with [...] to have if needed. Hanna Snider PA-C [address], [place], [address], [facility] - [facility] - [place] & [place] 11/01/2024 13:57:44 OBGyn Episode No OBEpisode recorded.
--- OUTSIDE RECORDS SUMMARY | 2024-11-18 11:45 | XMS_ITS | Data Portability ---
Author Organization [facility] & BERNIE Guerrero ADMIN Address [address] [place] [id number] Care Team Providers [employer] Name Role Phone ADDY GONZALES General Surgeon CARLOS A COATS Primary Care Provider VERONIKA RIVER [employer] [phone] Assessment No assessment recorded. Plan of Treatment Reminders Order Date Submit Date Provider Last Modified By Organization Details Last Modified Time Details Appointments OV EST 30 2024 11:00A M Hanna Fournier PA-C Not available Not available Not available OV EST 30 2024 11:00A Xavier Fournier PA-C Not available Not available Not available Lab carcinoem bryonic Ag, quant, serum or plasma 2024 025 [email or web address] [facility], [address] [place], [address], 11/08/2024 10:04:49 CMP, serum or plasma 2024 025 [email or web address] [facility], [address] [place], [address], 11/01/2024 15:54:32 CBC w/ diff 2024 025 [email or web address] [facility], [address] [place], [address], 11/08/2024 10:04:49 culture, stool 2024 025 [email or web address] [facility], [address] [place], [address], 09/09/2024 11:40:08 O&P (ova & parasites ), stool [address] [facility], [address] [place], [address], 09/09/2024 11:40:09 C diff screen, stool, reflex PCR [address] [facility], [address] [place], [address], 09/09/2024 11:40:09 CBC w/ auto diff 2024 025 [facility], [address] [place], [address], 09/02/2024 16:09:44 CMP, serum or plasma 2024 025 [facility], [address] [place], [address], 09/02/2024 14:45:24 CBC w/ auto diff 2024 025 [facility], [address] [place], [address], 08/25/2024 09:46:31 CMP, serum or plasma 2024 025 [facility], [address] [place], [address], 08/25/2024 09:39:00 carcinoem bryonic Ag, quant, serum or plasma [address] [facility], [address] [place], [address], 09/05/2024 09:16:06 Referral radiation oncologis t referral 2024 025 [email or web address] Mary Valencia MD, [facility] [place], [address], 09/07/2024 08:24:10 Procedures None recorded. Surgeries None recorded. Imaging CT, head + brain, w/o contrast 2024 025 [email or web address] [facility] ([facility]), [address], [place], [address], 09/02/2024 09:16:16 Medication Orders nystatin 100,000 unit/gram topical powder 2024 025 [facility], [address] [place], [address], 11/01/2024 13:56:59 ondansetr on 8 mg disintegr ating tablet [email or web address] [facility] [address] [facility], [address] [place], [address], 09/02/2024 12:29:05 Pepcid 20 mg tablet 2024 025 [facility], [address] [place], [address], 11/01/2024 13:10:36 megestrol 400 mg/10 mL (40 mg/mL) oral suspensio n 2024 025 [email or web address] [facility], [address] [place], [address], 08/01/2024 11:59:15 Patient TargetsNo targets recorded. Patient InstructionsNo instructions recorded. Reason for Referral Referring Physician: Hanna Fournier, Hematology/Oncology, Encounter Date: 08/10/2024 Results Created Date Observation Date Name Description Value Unit Range Abnormal Flag Note LastModifiedBy Organization Detail LastModifiedTime 07/11/19 25 07/11/2024 CBC AUTO W DIFF WBC 6.9 K/uL 4.0-10 .5 Not Available [facility] ([facility]) [address], [place], [address], 07/11/2024 10:30:50 07/11/19 25 07/11/2024 CBC AUTO W DIFF RBC 3.8 M/mm3 4.2-6. 4 low Not Available [facility] ([facility]) [address] , [place], [address], 07/11/2024 10:30:50 07/11/19 25 07/11/2024 CBC AUTO W DIFF HGB 11.0 gm/dL 12.5-1 6.0 low Not Available [facility] ([facility]) [address] , [place], [address], 07/11/2024 10:30:50 07/11/19 25 07/11/2024 CBC AUTO W DIFF HCT 34.5 % 37.0-4 7.0 low Not Available [facility] ([facility]) [address] , [place], [address], 07/11/2024 10:30:50 07/11/19 25 07/11/2024 CBC AUTO W DIFF MCV 92.0 fL 78-100 Not Available [facility] ([facility]) [address] , [place], [address], 07/11/2024 10:30:50 07/11/19 25 07/11/2024 CBC AUTO W DIFF MCH 29.3 pg 27-31 Not Available [facility] ([facility]) [address] , [place], [address], 07/11/2024 10:30:50 07/11/19 25 07/11/2024 CBC AUTO W DIFF MCHC 31.9 g/dL 32-36 low Not Available [facility] ([facility]) [address] , [place], [address], 07/11/2024 10:30:50 07/11/19 25 07/11/2024 CBC AUTO W DIFF RDW 15.9 % 11.5-1 4.0 high Not Available [facility] ([facility]) [address] , [place], [address], 07/11/2024 10:30:50 07/11/19 25 07/11/2024 CBC AUTO W DIFF platelet count 267 K/uL 150-45 0 Not Available [facility] ([facility]) [address], [place], [address], 07/11/2024 10:30:50 07/11/19 25 07/11/2024 CBC AUTO W DIFF MPV 9.1 fL 6-9.5 Not Available [facility] ([facility]) [address], [place], [address], 07/11/2024 10:30:50 07/11/19 25 07/11/2024 CBC AUTO W DIFF neutrophil% 66.2 % 43-65 high Not Available [facility] ([facility]) [address], [place], [address], 07/11/2024 10:30:50 07/11/19 25 07/11/2024 CBC AUTO W DIFF lymphocyte% 18.6 % 20.5-4 5.5 low Not Available [facility] ([facility]) [address], [place], [address], 07/11/2024 10:30:50 07/11/19 25 07/11/2024 CBC AUTO W DIFF monocyte% 11.5 % 5.5-11 .7 Not Available [facility] ([facility]) [address] [place], [address], 07/11/2024 10:30:50 07/11/19 25 07/11/2024 CBC AUTO W DIFF eosinophil% 2.7 % 0.9-2. 9 Not Available [facility] ([facility]) [address] [place], [address], 07/11/2024 10:30:50 07/11/19 25 07/11/2024 CBC AUTO W DIFF basophil% 0.6 % 0.2-1. 0 Not Available [facility] ([facility]) [address] [facility], [place], [address], 07/11/2024 10:30:50 07/11/19 25 07/11/2024 CBC AUTO W DIFF immature granulocytes % 0.4 % 0.0-0. 8 Not Available [facility] ([facility]) [address] [facility], [place], [address], 07/11/2024 10:30:50 07/11/19 25 07/11/2024 CBC AUTO W DIFF nucleated red blood cells % 0.0 % Not Available [facility] ([facility]) [address] [facility], [place], [address], 07/11/2024 10:30:50 07/11/19 25 07/11/2024 CBC AUTO W DIFF neutrophil# 4.6 K/uL 2.2-4. 8 Not Available [facility] ([facility]) [address] [place], [address], 07/11/2024 10:30:50 07/11/19 25 07/11/2024 CBC AUTO W DIFF lymphocyte# 1.3 cell/ mcL 1.3-2. 9 Not Available [facility] ([facility]) [address] [place], [address], 07/11/2024 10:30:50 07/11/19 25 07/11/2024 CBC AUTO W DIFF monocyte# 0.8 cell/ mcL 0.3-0. 8 Not Available [facility] ([facility]) [address] [place], [address], 07/11/2024 10:30:50 07/11/19 25 07/11/2024 CBC AUTO W DIFF eosinophil# 0.2 cell/ mcL 0-0.2 Not Available [facility] ([facility]) [address], [place], [address], 07/11/2024 10:30:50 07/11/19 25 07/11/2024 CBC AUTO W DIFF basophil# 0.0 cell/ mcL 0.0-1. 0 Not Available [facility] ([facility]) [address], [place], [address], 07/11/2024 10:30:50 07/11/19 25 07/11/2024 CBC AUTO W DIFF immature gramulocytes # 0.03 K/uL Not Available [facility] ([facility]) [address], [place], [address], 07/11/2024 10:30:50 07/11/19 25 07/11/2024 CBC AUTO W DIFF nucleated red blood cells # 0.00 K/uL Not Available [facility] ([facility]) [address], [place], [address], 07/11/2024 10:30:50 07/11/19 25 07/11/2024 CBC AUTO W DIFF manual differential NO Not Available [facility] ([facility]) [address] , [place], [address], 07/11/2024 10:30:50 07/11/19 25 07/11/2024 COMP METAB OLIC PANEL sodium 137 mmol/ L 136-14 5 Not Available [facility] ([facility]) [address] , [place], [address], 07/11/2024 10:45:53 07/11/19 25 07/11/2024 COMP METAB OLIC PANEL potassium 3.4 mmol/ L 3.6-5. 0 low Not Available [facility] ([facility]) [address] , [place], [address], 07/11/2024 10:45:53 07/11/19 25 07/11/2024 COMP METAB OLIC PANEL chloride 100 mmol/ L 98-107 Not Available [facility] ([facility]) [address] , [place], [address], 07/11/2024 10:45:53 07/11/19 25 07/11/2024 COMP METAB OLIC PANEL carbon dioxide 28.2 mmol/ L 21.0-3 2.0 Not Available [facility] ([facility]) [address] , [place], [address], 07/11/2024 10:45:53 07/11/19 25 07/11/2024 COMP METAB OLIC PANEL anion gap 12.2 Not Available [facility] ([facility]) [address] , [place], [address], 07/11/2024 10:45:53 07/11/19 25 07/11/2024 COMP METAB OLIC PANEL glucose 208 mg/dL 70-120 high Not Available [facility] ([facility]) [address] , [place], [address], 07/11/2024 10:45:53 07/11/19 25 07/11/2024 COMP METAB OLIC PANEL BUN 16 mg/dL 7-18 Not Available [facility] ([facility]) [address] , [place], [address], 07/11/2024 10:45:53 07/11/19 25 07/11/2024 COMP METAB OLIC PANEL creatinine 1.2 mg/dL 0.6-1. 3 Not Available [facility] ([facility]) [address] , [place], [address], 07/11/2024 10:45:53 07/11/19 25 07/11/2024 COMP METAB [...] albrecht ing kiney funct ion. Not Available [facility] ([facility]) [address] [facility], [place], [address], 07/11/2024 10:45:53 07/11/19 25 07/11/2024 COMP METAB OLIC PANEL total protein 6.6 g/dL 6.4-8. 2 Not Available [facility] ([facility]) [address] [facility], [place], [address], 07/11/2024 10:45:53 07/11/19 25 07/11/2024 COMP METAB OLIC PANEL albumin 2.3 g/dL 3.4-5. 0 low Not Available [facility] ([facility]) [address] [facility], [place], [address], 07/11/2024 10:45:53 07/11/19 25 07/11/2024 COMP METAB OLIC PANEL globulin 4.3 Not Available [facility] ([facility]) [address] [facility], [place], [address], 07/11/2024 10:45:53 07/11/19 25 07/11/2024 COMP METAB OLIC PANEL alb/glob ratio 0.5 0.7-2 low Not Available [facility] ([facility]) [address] [place], [address], 07/11/2024 10:45:53 07/11/19 25 07/11/2024 COMP METAB OLIC PANEL calcium 8.9 mg/dL 8.5-10 .5 Not Available [facility] ([facility]) [address] [place], [address], 07/11/2024 10:45:53 07/11/19 25 07/11/2024 COMP METAB OLIC PANEL bilirubin total 0.50 mg/dL 0.10-1 .00 Not Available [facility] ([facility]) [address], [place], [address], 07/11/2024 10:45:53 07/11/19 25 07/11/2024 COMP METAB OLIC PANEL AST (SGOT) 50 U/L 0-37 high Not Available [facility] ([facility]) [address], [place], [address], 07/11/2024 10:45:53 07/11/19 25 07/11/2024 COMP METAB OLIC PANEL ALT (SGPT) 20 U/L 0-65 Not Available [facility] ([facility]) [address] [facility], [place], [address], 07/11/2024 10:45:53 07/11/19 25 07/11/2024 COMP METAB OLIC PANEL alk phosphatase 248 U/L 46-116 high Not Available [facility] ([facility]) [address] [facility], [place], [address], 07/11/2024 10:45:53 07/11/19 25 07/11/2024 MAGNE SIUM magnesium 2.3 mg/dL 1.8-2. 4 Not Available [facility] ([facility]) [address] [place], [address], 07/11/2024 10:45:56 07/11/19 25 07/11/2024 PT (PROT HROMB IN TIME) W INR prothrombin time 14.3 secon ds 9.3-11 .4 high Not Available [facility] ([facility]) [address] [facility], [place], [address], 07/11/2024 10:59:01 07/11/19 25 07/11/2024 PT (PROT [...] Mecha nical Heart Valve s Not Available [facility] ([facility]) [address] , [place], [address], 07/11/2024 10:59:01 07/11/19 25 07/12/2024 CEA cea [...] t be inter prete d as absol [place] evide nce of the prese nce or absen ce [facility] . Perfo rmed at: [place] [address] Lab Direc tor: Tate staton PhD, Phone : [phone] Not Available [facility] ([facility]) [address] , [place], [address], 07/12/2024 13:09:06 07/25/19 25 07/25/2024 MAGNE SIUM magnesium 1.8 mg/dL 1.8-2. 4 Not Available [facility] ([facility]) [address] , [place], [address], 07/25/2024 10:51:25 07/25/19 25 07/25/2024 CBC AUTO W DIFF WBC 9.0 K/uL 4.0-10 .5 Not Available [facility] ([facility]) [address] , [place], [address], 07/25/2024 10:52:22 07/25/19 25 07/25/2024 CBC AUTO W DIFF RBC 4.3 M/mm3 4.2-6. 4 Not Available [facility] ([facility]) [address] , [place], [address], 07/25/2024 10:52:22 07/25/19 25 07/25/2024 CBC AUTO W DIFF HGB 12.6 gm/dL 12.5-1 6.0 Not Available [facility] ([facility]) [address], [place], [address], 07/25/2024 10:52:22 07/25/19 25 07/25/2024 CBC AUTO W DIFF HCT 39.6 % 37.0-4 7.0 Not Available [facility] ([facility]) [address], [place], [address], 07/25/2024 10:52:22 07/25/19 25 07/25/2024 CBC AUTO W DIFF MCV 92.7 fL 78-100 Not Available [facility] ([facility]) [address], [place], [address], 07/25/2024 10:52:22 07/25/19 25 07/25/2024 CBC AUTO W DIFF MCH 29.5 pg 27-31 Not Available [facility] ([facility]) [address] , [place], [address], 07/25/2024 10:52:22 07/25/19 25 07/25/2024 CBC AUTO W DIFF MCHC 31.8 g/dL 32-36 low Not Available [facility] ([facility]) [address] [place], [address], 07/25/2024 10:52:22 07/25/19 25 07/25/2024 CBC AUTO W DIFF RDW 16.8 % 11.5-1 4.0 high Not Available [facility] ([facility]) [address] , [place], [address], 07/25/2024 10:52:22 07/25/19 25 07/25/2024 CBC AUTO W DIFF platelet count 234 K/uL 150-45 0 Not Available [facility] ([facility]) [address] , [place], [address], 07/25/2024 10:52:22 07/25/19 25 07/25/2024 CBC AUTO W DIFF MPV 9.2 fL 6-9.5 Not Available [facility] ([facility]) [address] , [place], [address], 07/25/2024 10:52:22 07/25/19 25 07/25/2024 CBC AUTO W DIFF neutrophil% 70.3 % 43-65 high Not Available [facility] ([facility]) [address] , [place], [address], 07/25/2024 10:52:22 07/25/19 25 07/25/2024 CBC AUTO W DIFF lymphocyte% 16.5 % 20.5-4 5.5 low Not Available [facility] ([facility]) [address] , [place], [address], 07/25/2024 10:52:22 07/25/19 25 07/25/2024 CBC AUTO W DIFF monocyte% 7.0 % 5.5-11 .7 Not Available [facility] ([facility]) [address] , [place], [address], 07/25/2024 10:52:22 07/25/19 25 07/25/2024 CBC AUTO W DIFF eosinophil% 5.3 % 0.9-2. 9 high Not Available [facility] ([facility]) [address], [place], [address], 07/25/2024 10:52:22 07/25/19 25 07/25/2024 CBC AUTO W DIFF basophil% 0.6 % 0.2-1. 0 Not Available [facility] ([facility]) [address] [place], [address], 07/25/2024 10:52:22 07/25/19 25 07/25/2024 CBC AUTO W DIFF immature granulocytes % 0.3 % 0.0-0. 8 Not Available [facility] ([facility]) [address] [facility], [place], [address], 07/25/2024 10:52:22 07/25/19 25 07/25/2024 CBC AUTO W DIFF nucleated red blood cells % 0.0 % Not Available [facility] ([facility]) [address] [facility], [place], [address], 07/25/2024 10:52:22 07/25/19 25 07/25/2024 CBC AUTO W DIFF neutrophil# 6.3 K/uL 2.2-4. 8 high Not Available [facility] ([facility]) [address] [place], [address], 07/25/2024 10:52:22 07/25/19 25 07/25/2024 CBC AUTO W DIFF lymphocyte# 1.5 cell/ mcL 1.3-2. 9 Not Available [facility] ([facility]) [address] [place], [address], 07/25/2024 10:52:22 07/25/19 25 07/25/2024 CBC AUTO W DIFF monocyte# 0.6 cell/ mcL 0.3-0. 8 Not Available [facility] ([facility]) [address] [place], [address], 07/25/2024 10:52:22 07/25/19 25 07/25/2024 CBC AUTO W DIFF eosinophil# 0.5 cell/ mcL 0-0.2 high Not Available [facility] ([facility]) [address], [place], [address], 07/25/2024 10:52:22 07/25/19 25 07/25/2024 CBC AUTO W DIFF basophil# 0.1 cell/ mcL 0.0-1. 0 Not Available [facility] ([facility]) [address], [place], [address], 07/25/2024 10:52:22 07/25/19 25 07/25/2024 CBC AUTO W DIFF immature gramulocytes # 0.03 K/uL Not Available [facility] ([facility]) [address], [place], [address], 07/25/2024 10:52:22 07/25/19 25 07/25/2024 CBC AUTO W DIFF nucleated red blood cells # 0.00 K/uL Not Available [facility] ([facility]) [address], [place], [address], 07/25/2024 10:52:22 07/25/19 25 07/25/2024 CBC AUTO W DIFF manual differential NO Not Available [facility] ([facility]) [address], [place], [address], 07/25/2024 10:52:22 07/25/19 25 07/25/2024 COMP METAB OLIC PANEL sodium 137 mmol/ L 136-14 5 Not Available [facility] ([facility]) [address], [place], [address], 07/25/2024 10:58:53 07/25/19 25 07/25/2024 COMP METAB OLIC PANEL potassium 3.7 mmol/ L 3.6-5. 0 Not Available [facility] ([facility]) [address], [place], [address], 07/25/2024 10:58:53 07/25/19 25 07/25/2024 COMP METAB OLIC PANEL chloride 100 mmol/ L 98-107 Not Available [facility] ([facility]) [address] , [place], [address], 07/25/2024 10:58:53 07/25/19 25 07/25/2024 COMP METAB OLIC PANEL carbon dioxide 25.4 mmol/ L 21.0-3 2.0 Not Available [facility] ([facility]) [address], [place], [address], 07/25/2024 10:58:53 07/25/19 25 07/25/2024 COMP METAB OLIC PANEL anion gap 15.3 Not Available [facility] ([facility]) [address], [place], [address], 07/25/2024 10:58:53 07/25/19 25 07/25/2024 COMP METAB OLIC PANEL glucose 169 mg/dL 70-120 high Not Available [facility] ([facility]) [address] [facility], [place], [address], 07/25/2024 10:58:53 07/25/19 25 07/25/2024 COMP METAB OLIC PANEL BUN 17 mg/dL 7-18 Not Available [facility] ([facility]) [address] [facility], [place], [address], 07/25/2024 10:58:53 07/25/19 25 07/25/2024 COMP METAB OLIC PANEL creatinine 0.9 mg/dL 0.6-1. 3 Not Available [facility] ([facility]) [address] [place], [address], 07/25/2024 10:58:53 07/25/19 25 07/25/2024 COMP METAB [...] albrecht ing kiney funct ion. Not Available [facility] ([facility]) [address] [facility], [place], [address], 07/25/2024 10:58:53 07/25/19 25 07/25/2024 COMP METAB OLIC PANEL total protein 7.1 g/dL 6.4-8. 2 Not Available [facility] ([facility]) [address] [facility], [place], [address], 07/25/2024 10:58:53 07/25/19 25 07/25/2024 COMP METAB OLIC PANEL albumin 2.8 g/dL 3.4-5. 0 low Not Available [facility] ([facility]) [address] [facility], [place], [address], 07/25/2024 10:58:53 07/25/19 25 07/25/2024 COMP METAB OLIC PANEL globulin 4.3 Not Available [facility] ([facility]) [address] [facility], [place], [address], 07/25/2024 10:58:53 07/25/19 25 07/25/2024 COMP METAB OLIC PANEL alb/glob ratio 0.7 0.7-2 Not Available [facility] ([facility]) [address] [facility], [place], [address], 07/25/2024 10:58:53 07/25/19 25 07/25/2024 COMP METAB OLIC PANEL calcium 9.0 mg/dL 8.5-10 .5 Not Available [facility] ([facility]) [address] [facility], [place], [address], 07/25/2024 10:58:53 07/25/19 25 07/25/2024 COMP METAB OLIC PANEL bilirubin total 0.60 mg/dL 0.10-1 .00 Not Available [facility] ([facility]) [address] [facility], [place], [address], 07/25/2024 10:58:53 07/25/19 25 07/25/2024 COMP METAB OLIC PANEL AST (SGOT) 33 U/L 0-37 Not Available [facility] ([facility]) [address] [facility], [place], [address], 07/25/2024 10:58:53 07/25/19 25 07/25/2024 COMP METAB OLIC PANEL ALT (SGPT) 20 U/L 0-65 Not Available [facility] ([facility]) [address] [facility], [place], [address], 07/25/2024 10:58:53 07/25/19 25 07/25/2024 COMP METAB OLIC PANEL alk phosphatase 224 U/L 46-116 high Not Available [facility] ([facility]) [address] [facility], [place], [address], 07/25/2024 10:58:53 07/25/19 25 07/25/2024 PT (PROT HROMB IN TIME) W INR prothrombin time 27.2 secon ds 9.3-11 .4 high Not Available [facility] ([facility]) [address] [place], [address], 07/25/2024 11:01:05 07/25/19 25 07/25/2024 PT (PROT [...] Mecha nical Heart Valve s Not Available [facility] ([facility]) [address], [place], [address], 07/25/2024 11:01:05 07/25/19 25 07/26/2024 CEA cea [...] t be inter prete d as absol [place] evide nce of the prese nce or absen ce of [facility] se. Perfo rmed at: [place] [address] Lab Direc tor: Tate staton PhD, Phone : [phone] Not Available [facility] ([facility]) [address] [facility], [place], [address], 07/26/2024 08:13:00 08/11/19 25 08/10/2024 CBC AUTO W DIFF WBC 10.3 K/uL 4.0-10 .5 Not Available [facility] ([facility]) [address], [place], [address], 08/10/2024 10:33:28 08/11/19 25 08/10/2024 CBC AUTO W DIFF RBC 4.0 M/mm3 4.2-6. 4 low Not Available [facility] ([facility]) [address] [facility], [place], [address], 08/10/2024 10:33:28 08/11/19 25 08/10/2024 CBC AUTO W DIFF HGB 11.9 gm/dL 12.5-1 6.0 low Not Available [facility] ([facility]) [address] [facility], [place], [address], 08/10/2024 10:33:28 08/11/19 25 08/10/2024 CBC AUTO W DIFF HCT 36.4 % 37.0-4 7.0 low Not Available [facility] ([facility]) [address] , [place], [address], 08/10/2024 10:33:28 08/11/19 25 08/10/2024 CBC AUTO W DIFF MCV 91.7 fL 78-100 Not Available [facility] ([facility]) [address] , [place], [address], 08/10/2024 10:33:28 08/11/19 25 08/10/2024 CBC AUTO W DIFF MCH 30.0 pg 27-31 Not Available [facility] ([facility]) [address] , [place], [address], 08/10/2024 10:33:28 08/11/19 25 08/10/2024 CBC AUTO W DIFF MCHC 32.7 g/dL 32-36 Not Available [facility] ([facility]) [address] , [place], [address], 08/10/2024 10:33:28 08/11/19 25 08/10/2024 CBC AUTO W DIFF RDW 16.3 % 11.5-1 4.0 high Not Available [facility] ([facility]) [address] , [place], [address], 08/10/2024 10:33:28 08/11/19 25 08/10/2024 CBC AUTO W DIFF platelet count 227 K/uL 150-45 0 Not Available [facility] ([facility]) [address], [place], [address], 08/10/2024 10:33:28 08/11/19 25 08/10/2024 CBC AUTO W DIFF MPV 9.6 fL 6-9.5 high Not Available [facility] ([facility]) [address], [place], [address], 08/10/2024 10:33:28 08/11/19 25 08/10/2024 CBC AUTO W DIFF neutrophil% 71.2 % 43-65 high Not Available [facility] ([facility]) [address] [facility], [place], [address], 08/10/2024 10:33:28 08/11/19 25 08/10/2024 CBC AUTO W DIFF lymphocyte% 12.6 % 20.5-4 5.5 low Not Available [facility] ([facility]) [address] [facility], [place], [address], 08/10/2024 10:33:28 08/11/19 25 08/10/2024 CBC AUTO W DIFF monocyte% 6.6 % 5.5-11 .7 Not Available [facility] ([facility]) [address] [facility], [place], [address], 08/10/2024 10:33:28 08/11/19 25 08/10/2024 CBC AUTO W DIFF eosinophil% 8.6 % 0.9-2. 9 high Not Available [facility] ([facility]) [address] [facility], [place], [address], 08/10/2024 10:33:28 08/11/19 25 08/10/2024 CBC AUTO W DIFF basophil% 0.7 % 0.2-1. 0 Not Available [facility] ([facility]) [address] [facility], [place], [address], 08/10/2024 10:33:28 08/11/19 25 08/10/2024 CBC AUTO W DIFF immature granulocytes % 0.3 % 0.0-0. 8 Not Available [facility] ([facility]) [address] [facility], [place], [address], 08/10/2024 10:33:28 08/11/19 25 08/10/2024 CBC AUTO W DIFF nucleated red blood cells % 0.0 % Not Available [facility] ([facility]) [address] [facility], [place], [address], 08/10/2024 10:33:28 08/11/19 25 08/10/2024 CBC AUTO W DIFF neutrophil# 7.3 K/uL 2.2-4. 8 high Not Available [facility] ([facility]) [address] [facility], [place], [address], 08/10/2024 10:33:28 08/11/19 25 08/10/2024 CBC AUTO W DIFF lymphocyte# 1.3 cell/ mcL 1.3-2. 9 Not Available [facility] ([facility]) [address], [place], [address], 08/10/2024 10:33:28 08/11/19 25 08/10/2024 CBC AUTO W DIFF monocyte# 0.7 cell/ mcL 0.3-0. 8 Not Available [facility] ([facility]) [address] [place], [address], 08/10/2024 10:33:28 08/11/19 25 08/10/2024 CBC AUTO W DIFF eosinophil# 0.9 cell/ mcL 0-0.2 high Not Available [facility] ([facility]) [address] [place], [address], 08/10/2024 10:33:28 08/11/19 25 08/10/2024 CBC AUTO W DIFF basophil# 0.1 cell/ mcL 0.0-1. 0 Not Available [facility] ([facility]) [address] [place], [address], 08/10/2024 10:33:28 08/11/19 25 08/10/2024 CBC AUTO W DIFF immature gramulocytes # 0.03 K/uL Not Available [facility] ([facility]) [address] [place], [address], 08/10/2024 10:33:28 08/11/19 25 08/10/2024 CBC AUTO W DIFF nucleated red blood cells # 0.00 K/uL Not Available [facility] ([facility]) [address], [place], [address], 08/10/2024 10:33:28 08/11/19 25 08/10/2024 CBC AUTO W DIFF manual differential NO Not Available [facility] ([facility]) [address], [place], [address], 08/10/2024 10:33:28 08/11/19 25 08/10/2024 COMP METAB OLIC PANEL sodium 140 mmol/ L 136-14 5 Not Available [facility] ([facility]) [address], [place], [address], 08/10/2024 10:56:34 08/11/19 25 08/10/2024 COMP METAB OLIC PANEL potassium 4.1 mmol/ L 3.6-5. 0 Not Available [facility] ([facility]) [address], [place], [address], 08/10/2024 10:56:34 08/11/19 25 08/10/2024 COMP METAB OLIC PANEL chloride 104 mmol/ L 98-107 Not Available [facility] ([facility]) [address], [place], [address], 08/10/2024 10:56:34 08/11/19 25 08/10/2024 COMP METAB OLIC PANEL carbon dioxide 22.7 mmol/ L 21.0-3 2.0 Not Available [facility] ([facility]) [address], [place], [address], 08/10/2024 10:56:34 08/11/19 25 08/10/2024 COMP METAB OLIC PANEL anion gap 17.4 Not Available [facility] ([facility]) [address], [place], [address], 08/10/2024 10:56:34 08/11/19 25 08/10/2024 COMP METAB OLIC PANEL glucose 180 mg/dL 70-120 high Not Available [facility] ([facility]) [address], [place], [address], 08/10/2024 10:56:34 08/11/19 25 08/10/2024 COMP METAB OLIC PANEL BUN 13 mg/dL 7-18 Not Available [facility] ([facility]) [address], [place], [address], 08/10/2024 10:56:34 08/11/19 25 08/10/2024 COMP METAB OLIC PANEL creatinine 1.05 mg/dL 0.6-1. 3 Not Available [facility] ([facility]) [address] , [place], [address], 08/10/2024 10:56:34 08/11/19 25 08/10/2024 COMP METAB [...] albrecht ing kiney funct ion. Not Available [facility] ([facility]) [address] , [place], [address], 08/10/2024 10:56:34 08/11/19 25 08/10/2024 COMP METAB OLIC PANEL total protein 6.9 g/dL 6.4-8. 2 Not Available [facility] ([facility]) [address], [place], [address], 08/10/2024 10:56:34 08/11/19 25 08/10/2024 COMP METAB OLIC PANEL albumin 4.3 g/dL 3.4-5. 0 Not Available [facility] ([facility]) [address], [place], [address], 08/10/2024 10:56:34 08/11/19 25 08/10/2024 COMP METAB OLIC PANEL globulin 2.6 Not Available [facility] ([facility]) [address], [place], [address], 08/10/2024 10:56:34 08/11/19 25 08/10/2024 COMP METAB OLIC PANEL alb/glob ratio 1.7 0.7-2 Not Available [facility] ([facility]) [address] , [place], [address], 08/10/2024 10:56:34 08/11/19 25 08/10/2024 COMP METAB OLIC PANEL calcium 8.9 mg/dL 8.5-10 .5 Not Available [facility] ([facility]) [address] , [place], [address], 08/10/2024 10:56:34 08/11/19 25 08/10/2024 COMP METAB OLIC PANEL bilirubin total 0.6 mg/dL 0.10-1 .00 Not Available [facility] ([facility]) [address] , [place], [address], 08/10/2024 10:56:34 08/11/19 25 08/10/2024 COMP METAB OLIC PANEL AST (SGOT) 40 U/L 0-37 high Not Available [facility] ([facility]) [address] , [place], [address], 08/10/2024 10:56:34 08/11/19 25 08/10/2024 COMP METAB OLIC PANEL ALT (SGPT) 23 U/L 0-65 Not Available [facility] ([facility]) [address], [place], [address], 08/10/2024 10:56:34 08/11/19 25 08/10/2024 COMP METAB OLIC PANEL alk phosphatase 234 U/L 46-116 high Not Available [facility] ([facility]) [address], [place], [address], 08/10/2024 10:56:34 08/11/19 25 08/10/2024 MAGNE SIUM magnesium 2.1 mg/dL 1.8-2. 4 Not Available [facility] ([facility]) [address], [place], [address], 08/10/2024 10:57:38 08/11/19 25 08/10/2024 PT (PROT HROMB IN TIME) W INR prothrombin time 36.2 secon ds 9.3-11 .4 high Not Available [facility] ([facility]) [address] [facility], [place], [address], 08/10/2024 10:58:45 08/11/19 25 08/10/2024 PT (PROT [...] Mecha nical Heart Valve s Not Available [facility] ([facility]) [address], [place], [address], 08/10/2024 10:58:45 08/26/19 25 08/25/2024 COMP METAB OLIC PANEL sodium 137 mmol/ L 136-14 5 Not Available [facility] ([facility]) [address] , [place], [address], 08/25/2024 09:39:00 08/26/19 25 08/25/2024 COMP METAB OLIC PANEL potassium 4.1 mmol/ L 3.6-5. 0 Not Available [facility] ([facility]) [address] , [place], [address], 08/25/2024 09:39:00 08/26/19 25 08/25/2024 COMP METAB OLIC PANEL chloride 101 mmol/ L 98-107 Not Available [facility] ([facility]) [address] , [place], [address], 08/25/2024 09:39:00 08/26/19 25 08/25/2024 COMP METAB OLIC PANEL carbon dioxide 23.8 mmol/ L 21.0-3 2.0 Not Available [facility] ([facility]) [address] , [place], [address], 08/25/2024 09:39:00 08/26/19 25 08/25/2024 COMP METAB OLIC PANEL anion gap 16.3 Not Available [facility] ([facility]) [address] , [place], [address], 08/25/2024 09:39:00 08/26/19 25 08/25/2024 COMP METAB OLIC PANEL glucose 169 mg/dL 70-120 high Not Available [facility] ([facility]) [address] [place], [address], 08/25/2024 09:39:00 08/26/19 25 08/25/2024 COMP METAB OLIC PANEL BUN 17 mg/dL 7-18 Not Available [facility] ([facility]) [address] , [place], [address], 08/25/2024 09:39:00 08/26/19 25 08/25/2024 COMP METAB OLIC PANEL creatinine 1.5 mg/dL 0.6-1. 3 high Not Available [facility] ([facility]) [address] , [place], [address], 08/25/2024 09:39:00 08/26/19 25 08/25/2024 COMP METAB [...] albrecht ing kiney funct ion. Not Available [facility] ([facility]) [address] , [place], [address], 08/25/2024 09:39:00 08/26/19 25 08/25/2024 COMP METAB OLIC PANEL osmolality (calculated) 291 mOsm/ kg 275-30 1 OSMOL ALITY IS A CALCU LATIO N UTILI ZING THE SERUM /PLAS MA SODIU M, GLUCO SE AND UREA NITRO GEN (BUN) LEVEL S. FOR THE MOST ACCUR ATE RESUL T A MEASU RED SERUM OSMOL ALITY IS SUGGE STED. Not Available [facility] ([facility]) [address], [place], [address], 08/25/2024 09:39:00 08/26/1908/25/2024 COMP METAB OLIC PANEL total protein 7.2 g/dL 6.4-8. 2 Not Available [facility] ([facility]) [address] , [place], [address], 08/25/2024 09:39:00 08/26/19 25 08/25/2024 COMP METAB OLIC PANEL albumin 2.9 g/dL 3.4-5. 0 low Not Available [facility] ([facility]) [address], [place], [address], 08/25/2024 09:39:00 08/26/19 25 08/25/2024 COMP METAB OLIC PANEL globulin 4.3 Not Available [facility] ([facility]) [address], [place], [address], 08/25/2024 09:39:00 08/26/19 25 08/25/2024 COMP METAB OLIC PANEL alb/glob ratio 0.7 0.7-2 Not Available [facility] ([facility]) [address], [place], [address], 08/25/2024 09:39:00 08/26/19 25 08/25/2024 COMP METAB OLIC PANEL calcium 8.9 mg/dL 8.5-10 .5 Not Available [facility] ([facility]) [address] [facility], [place], [address], 08/25/2024 09:39:00 08/26/19 25 08/25/2024 COMP METAB OLIC PANEL bilirubin total 0.50 mg/dL 0.10-1 .00 Not Available [facility] ([facility]) [address], [place], [address], 08/25/2024 09:39:00 08/26/19 25 08/25/2024 COMP METAB OLIC PANEL AST (SGOT) 18 U/L 0-37 Not Available [facility] ([facility]) [address], [place], [address], 08/25/2024 09:39:00 08/26/19 25 08/25/2024 COMP METAB OLIC PANEL ALT (SGPT) 16 U/L 0-65 Not Available [facility] ([facility]) [address], [place], [address], 08/25/2024 09:39:00 08/26/19 25 08/25/2024 COMP METAB OLIC PANEL alk phosphatase 218 U/L 46-116 high Not Available [facility] ([facility]) [address], [place], [address], 08/25/2024 09:39:00 08/26/19 25 08/25/2024 MAGNE SIUM magnesium 1.8 mg/dL 1.8-2. 4 Not Available [facility] ([facility]) [address], [place], [address], 08/25/2024 09:39:02 08/26/19 25 08/25/2024 CBC AUTO W DIFF WBC 3.5 K/uL 4.0-10 .5 low Not Available [facility] ([facility]) [address], [place], [address], 08/25/2024 09:46:31 08/26/19 25 08/25/2024 CBC AUTO W DIFF RBC 3.9 M/mm3 4.2-6. 4 low Not Available [facility] ([facility]) [address], [place], [address], 08/25/2024 09:46:31 08/26/19 25 08/25/2024 CBC AUTO W DIFF HGB 11.4 gm/dL 12.5-1 6.0 low Not Available [facility] ([facility]) [address], [place], [address], 08/25/2024 09:46:31 08/26/19 25 08/25/2024 CBC AUTO W DIFF HCT 34.6 % 37.0-4 7.0 low Not Available [facility] ([facility]) [address], [place], [address], 08/25/2024 09:46:31 08/26/19 25 08/25/2024 CBC AUTO W DIFF MCV 88.7 fL 78-100 Not Available [facility] ([facility]) [address], [place], [address], 08/25/2024 09:46:31 08/26/19 25 08/25/2024 CBC AUTO W DIFF MCH 29.2 pg 27-31 Not Available [facility] ([facility]) [address] , [place], [address], 08/25/2024 09:46:31 08/26/19 25 08/25/2024 CBC AUTO W DIFF MCHC 32.9 g/dL 32-36 Not Available [facility] ([facility]) [address] , [place], [address], 08/25/2024 09:46:31 08/26/19 25 08/25/2024 CBC AUTO W DIFF RDW 15.6 % 11.5-1 4.0 high Not Available [facility] ([facility]) [address], [place], [address], 08/25/2024 09:46:31 08/26/19 25 08/25/2024 CBC AUTO W DIFF platelet count 295 K/uL 150-45 0 Not Available [facility] ([facility]) [address], [place], [address], 08/25/2024 09:46:31 08/26/19 25 08/25/2024 CBC AUTO W DIFF MPV 9.0 fL 6-9.5 Not Available [facility] ([facility]) [address] [place], [address], 08/25/2024 09:46:31 08/26/19 25 08/25/2024 CBC AUTO W DIFF neutrophil% 39.6 % 43-65 low Not Available [facility] ([facility]) [address] [place], [address], 08/25/2024 09:46:31 08/26/19 25 08/25/2024 CBC AUTO W DIFF lymphocyte% 41.8 % 20.5-4 5.5 Not Available [facility] ([facility]) [address] [facility] [place], [address], 08/25/2024 09:46:31 08/26/19 25 08/25/2024 CBC AUTO W DIFF monocyte% 13.4 % 5.5-11 .7 high Not Available [facility] ([facility]) [address], [place], [address], 08/25/2024 09:46:31 08/26/19 25 08/25/2024 CBC AUTO W DIFF eosinophil% 3.7 % 0.9-2. 9 high Not Available [facility] ([facility]) [address], [place], [address], 08/25/2024 09:46:31 08/26/19 25 08/25/2024 CBC AUTO W DIFF basophil% 0.9 % 0.2-1. 0 Not Available [facility] ([facility]) [address] [facility], [place], [address], 08/25/2024 09:46:31 08/26/19 25 08/25/2024 CBC AUTO W DIFF immature granulocytes % 0.6 % 0.0-0. 8 Not Available [facility] ([facility]) [address], [place], [address], 08/25/2024 09:46:31 08/26/19 25 08/25/2024 CBC AUTO W DIFF nucleated red blood cells % 0.0 % Not Available [facility] ([facility]) [address] [place], [address], 08/25/2024 09:46:31 08/26/19 25 08/25/2024 CBC AUTO W DIFF neutrophil# 1.4 K/uL 2.2-4. 8 low Not Available [facility] ([facility]) [address] [place], [address], 08/25/2024 09:46:31 08/26/19 25 08/25/2024 CBC AUTO W DIFF lymphocyte# 1.5 cell/ mcL 1.3-2. 9 Not Available [facility] ([facility]) [address], [place], [address], 08/25/2024 09:46:31 08/26/19 25 08/25/2024 CBC AUTO W DIFF monocyte# 0.5 cell/ mcL 0.3-0. 8 Not Available [facility] ([facility]) [address] [facility], [place], [address], 08/25/2024 09:46:31 08/26/19 25 08/25/2024 CBC AUTO W DIFF eosinophil# 0.1 cell/ mcL 0-0.2 Not Available [facility] ([facility]) [address] [facility], [place], [address], 08/25/2024 09:46:31 08/26/19 25 08/25/2024 CBC AUTO W DIFF basophil# 0.0 cell/ mcL 0.0-1. 0 Not Available [facility] ([facility]) [address] [facility], [place], [address], 08/25/2024 09:46:31 08/26/19 25 08/25/2024 CBC AUTO W DIFF immature gramulocytes # 0.02 K/uL Not Available [facility] ([facility]) [address] [facility], [place], [address], 08/25/2024 09:46:31 08/26/19 25 08/25/2024 CBC AUTO W DIFF nucleated red blood cells # 0.00 K/uL Not Available [facility] ([facility]) [address] [place], [address], 08/25/2024 09:46:31 08/26/19 25 08/25/2024 CBC AUTO W DIFF manual differential NO Not Available [facility] ([facility]) [address] , [place], [address], 08/25/2024 09:46:31 08/26/19 25 08/25/2024 PT (PROT HROMB IN TIME) W INR prothrombin time 77.1 secon ds 9.3-11 .4 critical high Not Available [facility] ([facility]) [address] , [place], [address], 08/25/2024 10:02:40 08/26/19 25 08/25/2024 PT (PROT [...] Mecha nical Heart Valve s Not Available [facility] ([facility]) [address] , [place], [address], 08/25/2024 10:02:40 09/03/19 25 09/02/2024 COMP METAB OLIC PANEL sodium 131 mmol/ L 136-14 5 low Not Available [facility] ([facility]) [address] , [place], [address], 09/02/2024 14:45:24 09/03/19 25 09/02/2024 COMP METAB OLIC PANEL potassium 4.0 mmol/ L 3.6-5. 0 Not Available [facility] ([facility]) [address] , [place], [address], 09/02/2024 14:45:24 09/03/19 25 09/02/2024 COMP METAB OLIC PANEL chloride 99 mmol/ L 98-107 Not Available [facility] ([facility]) [address] , [place], [address], 09/02/2024 14:45:24 09/03/19 25 09/02/2024 COMP METAB OLIC PANEL carbon dioxide 18.6 mmol/ L 21.0-3 2.0 low Not Available [facility] ([facility]) [address], [place], [address], 09/02/2024 14:45:24 09/03/19 25 09/02/2024 COMP METAB OLIC PANEL anion gap 17.4 Not Available [facility] ([facility]) [address], [place], [address], 09/02/2024 14:45:24 09/03/19 25 09/02/2024 COMP METAB OLIC PANEL glucose 145 mg/dL 70-120 high Not Available [facility] ([facility]) [address], [place], [address], 09/02/2024 14:45:24 09/03/19 25 09/02/2024 COMP METAB OLIC PANEL BUN 36 mg/dL 7-18 high Not Available [facility] ([facility]) [address] [facility], [place], [address], 09/02/2024 14:45:24 09/03/19 25 09/02/2024 COMP METAB OLIC PANEL creatinine 1.5 mg/dL 0.6-1. 3 high Not Available [facility] ([facility]) [address] [facility], [place], [address], 09/02/2024 14:45:24 09/03/19 25 09/02/2024 COMP METAB [...] sukhwinder diet or rapid ly albrecht ing [facility] morgantony funct ion. Not Available [facility] ([facility]) [address], [place], [address], 09/02/2024 14:45:24 09/03/19 25 09/02/2024 COMP METAB OLIC PANEL osmolality (calculated) 284 mOsm/ kg 275-30 1 OSMOL ALITY IS A CALCU LATIO N UTILI ZING THE SERUM /PLAS MA SODIU M, GLUCO SE AND UREA NITRO GEN (BUN) LEVEL S. FOR THE MOST ACCUR ATE RESUL T A MEASU RED SERUM OSMOL ALITY IS SUGGE STED. Not Available [facility] ([facility]) [address], [place], [address], 09/02/2024 14:45:24 09/03/19 25 09/02/2024 COMP METAB OLIC PANEL total protein 5.9 g/dL 6.4-8. 2 low Not Available [facility] ([facility]) [address], [place], [address], 09/02/2024 14:45:24 09/03/19 25 09/02/2024 COMP METAB OLIC PANEL albumin 2.1 g/dL 3.4-5. 0 low Not Available [facility] ([facility]) [address], [place], [address], 09/02/2024 14:45:24 09/03/19 25 09/02/2024 COMP METAB OLIC PANEL globulin 3.8 Not Available [facility] ([facility]) [address], [place], [address], 09/02/2024 14:45:24 09/03/19 25 09/02/2024 COMP METAB OLIC PANEL alb/glob ratio 0.6 0.7-2 low Not Available [facility] ([facility]) [address], [place], [address], 09/02/2024 14:45:24 09/03/19 25 09/02/2024 COMP METAB OLIC PANEL calcium 8.1 mg/dL 8.5-10 .5 low Not Available [facility] ([facility]) [address] , [place], [address], 09/02/2024 14:45:24 09/03/19 25 09/02/2024 COMP METAB OLIC PANEL bilirubin total 1.10 mg/dL 0.10-1 .00 high Not Available [facility] ([facility]) [address] , [place], [address], 09/02/2024 14:45:24 09/03/19 25 09/02/2024 COMP METAB OLIC PANEL AST (SGOT) 13 U/L 0-37 Not Available [facility] ([facility]) [address], [place], [address], 09/02/2024 14:45:24 09/03/19 25 09/02/2024 COMP METAB OLIC PANEL ALT (SGPT) 13 U/L 0-65 Not Available [facility] ([facility]) [address] , [place], [address], 09/02/2024 14:45:24 09/03/19 25 09/02/2024 COMP METAB OLIC PANEL alk phosphatase 188 U/L 46-116 high Not Available [facility] ([facility]) [address] , [place], [address], 09/02/2024 14:45:24 09/03/19 25 09/02/2024 CBC AUTO W DIFF WBC 1.2 K/uL 4.0-10 .5 critical low Not Available [facility] ([facility]) [address] , [place], [address], 09/02/2024 16:09:44 09/03/19 25 09/02/2024 CBC AUTO W DIFF RBC 3.4 M/mm3 4.2-6. 4 low Not Available [facility] ([facility]) [address], [place], [address], 09/02/2024 16:09:44 09/03/19 25 09/02/2024 CBC AUTO W DIFF HGB 9.6 gm/dL 12.5-1 6.0 low Not Available [facility] ([facility]) [address], [place], [address], 09/02/2024 16:09:44 09/03/19 25 09/02/2024 CBC AUTO W DIFF HCT 28.7 % 37.0-4 7.0 low Not Available [facility] ([facility]) [address], [place], [address], 09/02/2024 16:09:44 09/03/19 25 09/02/2024 CBC AUTO W DIFF MCV 85.4 fL 78-100 Not Available [facility] ([facility]) [address], [place], [address], 09/02/2024 16:09:44 09/03/19 25 09/02/2024 CBC AUTO W DIFF MCH 28.6 pg 27-31 Not Available [facility] ([facility]) [address], [place], [address], 09/02/2024 16:09:44 09/03/19 25 09/02/2024 CBC AUTO W DIFF MCHC 33.4 g/dL 32-36 Not Available [facility] [facility]) [address], [place], [address], 09/02/2024 16:09:44 09/03/19 25 09/02/2024 CBC AUTO W DIFF RDW 15.9 % 11.5-1 4.0 high Not Available [facility] ([facility]) [address], [place], [address], 09/02/2024 16:09:44 09/03/19 25 09/02/2024 CBC AUTO W DIFF platelet count 213 K/uL 150-45 0 Not Available [facility] ([facility]) [address] , [place], [address], 09/02/2024 16:09:44 09/03/19 25 09/02/2024 CBC AUTO W DIFF MPV 9.6 fL 6-9.5 high Not Available [facility] ([facility]) [address] , [place], [address], 09/02/2024 16:09:44 09/03/19 25 09/02/2024 CBC AUTO W DIFF neutrophil% 57.7 % 43-65 Not Available [facility] ([facility]) [address] , [place], [address], 09/02/2024 16:09:44 09/03/19 25 09/02/2024 CBC AUTO W DIFF lymphocyte% 25.4 % 20.5-4 5.5 Not Available [facility] ([facility]) [address] , [place], [address], 09/02/2024 16:09:44 09/03/19 25 09/02/2024 CBC AUTO W DIFF monocyte% 15.3 % 5.5-11 .7 high Not Available [facility] ([facility]) [address] , [place], [address], 09/02/2024 16:09:44 09/03/19 25 09/02/2024 CBC AUTO W DIFF eosinophil% 0.0 % 0.9-2. 9 low Not Available [facility] ([facility]) [address] [place], [address], 09/02/2024 16:09:44 09/03/19 25 09/02/2024 CBC AUTO W DIFF basophil% 0.8 % 0.2-1. 0 Not Available [facility] ([facility]) [address] [place], [address], 09/02/2024 16:09:44 09/03/19 25 09/02/2024 CBC AUTO W DIFF immature granulocytes % 0.8 % 0.0-0. 8 Not Available [facility] ([facility]) [address], [place], [address], 09/02/2024 16:09:44 09/03/19 25 09/02/2024 CBC AUTO W DIFF nucleated red blood cells % 0.0 % Not Available [facility] ([facility]) [address], [place], [address], 09/02/2024 16:09:44 09/03/19 25 09/02/2024 CBC AUTO W DIFF neutrophil# 0.7 K/uL 2.2-4. 8 low Not Available [facility] ([facility]) [address] [facility], [place], [address], 09/02/2024 16:09:44 09/03/19 25 09/02/2024 CBC AUTO W DIFF lymphocyte# 0.3 cell/ mcL 1.3-2. 9 low Not Available [facility] ([facility]) [address] [place], [address], 09/02/2024 16:09:44 09/03/19 25 09/02/2024 CBC AUTO W DIFF monocyte# 0.2 cell/ mcL 0.3-0. 8 low Not Available [facility] ([facility]) [address] [place], [address], 09/02/2024 16:09:44 09/03/19 25 09/02/2024 CBC AUTO W DIFF eosinophil# 0.0 cell/ mcL 0-0.2 Not Available [facility] ([facility]) [address] [place], [address], 09/02/2024 16:09:44 09/03/19 25 09/02/2024 CBC AUTO W DIFF basophil# 0.0 cell/ mcL 0.0-1. 0 Not Available [facility] ([facility]) [address] , [place], [address], 09/02/2024 16:09:44 09/03/19 25 09/02/2024 CBC AUTO W DIFF immature gramulocytes # 0.01 K/uL Not Available [facility] ([facility]) [address] , [place], [address], 09/02/2024 16:09:44 09/03/19 25 09/02/2024 CBC AUTO W DIFF nucleated red blood cells # 0.00 K/uL Not Available [facility] ([facility]) [address], [place], [address], 09/02/2024 16:09:44 09/03/19 25 09/02/2024 CBC AUTO W DIFF manual differential YES Not Available [facility] ([facility]) [address] , [place], [address], 09/02/2024 16:09:44 09/03/19 25 09/02/2024 CBC AUTO W DIFF segmented neutrophil 54 % 42-76 Not Available [facility] ([facility]) [address] , [place], [address], 09/02/2024 16:09:44 09/03/19 25 09/02/2024 CBC AUTO W DIFF band neutrophil 8 % 0-8 Not Available [facility] ([facility]) [address], [place], [address], 09/02/2024 16:09:44 09/03/19 25 09/02/2024 CBC AUTO W DIFF lymphocyte 16 % 15-41 Not Available [facility] ([facility]) [address] , [place], [address], 09/02/2024 16:09:44 09/03/19 25 09/02/2024 CBC AUTO W DIFF monocyte 20 % 2-9 high Not Available [facility] ([facility]) [address] , [place], [address], 09/02/2024 16:09:44 09/03/19 25 09/02/2024 CBC AUTO W DIFF eosinophil 2 % 0-3 Not Available [facility] ([facility]) [address] , [place], [address], 09/02/2024 16:09:44 09/03/19 25 09/02/2024 CBC AUTO W DIFF platelet estimate ADEQUA TE adequa te Not Available [facility] ([facility]) [address] , [place], [address], 09/02/2024 16:09:44 09/03/19 25 09/02/2024 CBC AUTO W DIFF platelet morphology NORMAL normal Not Available [facility] ([facility]) [address] , [place], [address], 09/02/2024 16:09:44 09/03/19 25 09/02/2024 CBC AUTO W DIFF RBC morphology NORMAL normal Not Available [facility] ([facility]) [address] , [place], [address], 09/02/2024 16:09:44 11/02/19 25 11/01/2024 CBC AUTO W DIFF WBC 6.7 K/uL 4.0-10 .5 Not Available [facility] ([facility]) [address] [place], [address], 11/01/2024 15:32:39 11/02/19 25 11/01/2024 CBC AUTO W DIFF RBC 3.2 M/mm3 4.2-6. 4 low Not Available [facility] ([facility]) [address] [place], [address], 11/01/2024 15:32:39 11/02/19 25 11/01/2024 CBC AUTO W DIFF HGB 9.0 gm/dL 12.5-1 6.0 low Not Available [facility] ([facility]) [address] , [place], [address], 11/01/2024 15:32:39 11/02/19 25 11/01/2024 CBC AUTO W DIFF HCT 28.9 % 37.0-4 7.0 low Not Available [facility] ([facility]) [address] , [place], [address], 11/01/2024 15:32:39 11/02/19 25 11/01/2024 CBC AUTO W DIFF MCV 90.9 fL 78-100 Not Available [facility] ([facility]) [address] , [place], [address], 11/01/2024 15:32:39 11/02/19 25 11/01/2024 CBC AUTO W DIFF MCH 28.3 pg 27-31 Not Available [facility] ([facility]) [address] , [place], [address], 11/01/2024 15:32:39 11/02/19 25 11/01/2024 CBC AUTO W DIFF MCHC 31.1 g/dL 32-36 low Not Available [facility] ([facility]) [address] , [place], [address], 11/01/2024 15:32:39 11/02/19 25 11/01/2024 CBC AUTO W DIFF RDW 14.5 % 11.5-1 4.0 high Not Available [facility] ([facility]) [address] , [place], [address], 11/01/2024 15:32:39 11/02/19 25 11/01/2024 CBC AUTO W DIFF platelet count 257 K/uL 150-45 0 Not Available [facility] ([facility]) [address], [place], [address], 11/01/2024 15:32:39 11/02/19 25 11/01/2024 CBC AUTO W DIFF MPV 9.6 fL 6-9.5 high Not Available [facility] ([facility]) [address] [facility], [place], [address], 11/01/2024 15:32:39 11/02/19 25 11/01/2024 CBC AUTO W DIFF neutrophil% 75.3 % 43-65 high Not Available [facility] ([facility]) [address] [facility], [place], [address], 11/01/2024 15:32:39 11/02/19 25 11/01/2024 CBC AUTO W DIFF lymphocyte% 13.9 % 20.5-4 5.5 low Not Available [facility] ([facility]) [address] [facility], [place], [address], 11/01/2024 15:32:39 11/02/19 25 11/01/2024 CBC AUTO W DIFF monocyte% 7.5 % 5.5-11 .7 Not Available [facility] ([facility]) [address] [facility], [place], [address], 11/01/2024 15:32:39 11/02/19 25 11/01/2024 CBC AUTO W DIFF eosinophil% 2.2 % 0.9-2. 9 Not Available [facility] ([facility]) [address] [place], [address], 11/01/2024 15:32:39 11/02/19 25 11/01/2024 CBC AUTO W DIFF basophil% 0.4 % 0.2-1. 0 Not Available [facility] ([facility]) [address] [place], [address], 11/01/2024 15:32:39 11/02/19 25 11/01/2024 CBC AUTO W DIFF immature granulocytes % 0.7 % 0.0-0. 8 Not Available [facility] ([facility]) [address] [facility], [place], [address], 11/01/2024 15:32:39 11/02/19 25 11/01/2024 CBC AUTO W DIFF nucleated red blood cells % 0.0 % Not Available [facility] ([facility]) [address] [facility], [place], [address], 11/01/2024 15:32:39 11/02/19 25 11/01/2024 CBC AUTO W DIFF neutrophil# 5.0 K/uL 2.2-4. 8 high Not Available [facility] ([facility]) [address] [facility], [place], [address], 11/01/2024 15:32:39 11/02/19 25 11/01/2024 CBC AUTO W DIFF lymphocyte# 0.9 cell/ mcL 1.3-2. 9 low Not Available [facility] ([facility]) [address] [facility], [place], [address], 11/01/2024 15:32:39 11/02/19 25 11/01/2024 CBC AUTO W DIFF monocyte# 0.5 cell/ mcL 0.3-0. 8 Not Available [facility] ([facility]) [address] [place], [address], 11/01/2024 15:32:39 11/02/19 25 11/01/2024 CBC AUTO W DIFF eosinophil# 0.2 cell/ mcL 0-0.2 Not Available [facility] ([facility]) [address] [place], [address], 11/01/2024 15:32:39 11/02/19 25 11/01/2024 CBC AUTO W DIFF basophil# 0.0 cell/ mcL 0.0-1. 0 Not Available [facility] ([facility]) [address], [place], [address], 11/01/2024 15:32:39 11/02/19 25 11/01/2024 CBC AUTO W DIFF immature gramulocytes # 0.05 K/uL Not Available [facility] ([facility]) [address], [place], [address], 11/01/2024 15:32:39 11/02/19 25 11/01/2024 CBC AUTO W DIFF nucleated red blood cells # 0.00 K/uL Not Available [facility] ([facility]) [address], [place], [address], 11/01/2024 15:32:39 11/02/19 25 11/01/2024 CBC AUTO W DIFF manual differential NO Not Available [facility] ([facility]) [address], [place], [address], 11/01/2024 15:32:39 11/02/19 25 11/01/2024 COMP METAB OLIC PANEL sodium 139 mmol/ L 136-14 5 Not Available [facility] ([facility]) [address], [place], [address], 11/01/2024 15:54:32 11/02/19 25 11/01/2024 COMP METAB OLIC PANEL potassium 3.6 mmol/ L 3.6-5. 0 Not Available [facility] ([facility]) [address], [place], [address], 11/01/2024 15:54:32 11/02/19 25 11/01/2024 COMP METAB OLIC PANEL chloride 103 mmol/ L 98-107 Not Available [facility] ([facility]) [address], [place], [address], 11/01/2024 15:54:32 11/02/19 25 11/01/2024 COMP METAB OLIC PANEL carbon dioxide 27.8 mmol/ L 21.0-3 2.0 Not Available [facility] ([facility]) [address], [place], [address], 11/01/2024 15:54:32 11/02/19 25 11/01/2024 COMP METAB OLIC PANEL anion gap 11.8 Not Available [facility] ([facility]) [address], [place], [address], 11/01/2024 15:54:32 11/02/19 25 11/01/2024 COMP METAB OLIC PANEL glucose 112 mg/dL 70-120 Not Available [facility] ([facility]) [address], [place], [address], 11/01/2024 15:54:32 11/02/19 25 11/01/2024 COMP METAB OLIC PANEL BUN 9 mg/dL 7-18 Not Available [facility] ([facility]) [address] [facility], [place], [address], 11/01/2024 15:54:32 11/02/19 25 11/01/2024 COMP METAB OLIC PANEL creatinine 1.1 mg/dL 0.6-1. 3 Not Available [facility] ([facility]) [address] [facility], [place], [address], 11/01/2024 15:54:32 11/02/19 25 11/01/2024 COMP METAB [...] albrecht ing kiney funct ion. Not Available [facility] ([facility]) [address], [place], [address], 11/01/2024 15:54:32 11/02/19 25 11/01/2024 COMP METAB OLIC PANEL osmolality (calculated) 289 mOsm/ kg 275-30 1 OSMOL ALITY IS A CALCU LATIO N UTILI ZING THE SERUM /PLAS MA SODIU M, GLUCO SE AND UREA NITRO GEN (BUN) LEVEL S. FOR THE MOST ACCUR ATE RESUL T A MEASU RED SERUM OSMOL ALITY IS SUGGE STED. Not Available [facility] ([facility]) [address] [facility], [place], [address], 11/01/2024 15:54:32 11/02/19 25 11/01/2024 COMP METAB OLIC PANEL total protein 6.5 g/dL 6.4-8. 2 Not Available [facility] ([facility]) [address] [facility], [place], [address], 11/01/2024 15:54:32 11/02/19 25 11/01/2024 COMP METAB OLIC PANEL albumin 2.2 g/dL 3.4-5. 0 low Not Available [facility] ([facility]) [address] [facility], [place], [address], 11/01/2024 15:54:32 11/02/19 25 11/01/2024 COMP METAB OLIC PANEL globulin 4.3 Not Available [facility] ([facility]) [address] [facility], [place], [address], 11/01/2024 15:54:32 11/02/19 25 11/01/2024 COMP METAB OLIC PANEL alb/glob ratio 0.5 0.7-2 low Not Available [facility] ([facility]) [address], [place], [address], 11/01/2024 15:54:32 11/02/19 25 11/01/2024 COMP METAB OLIC PANEL calcium 8.5 mg/dL 8.5-10 .5 Not Available [facility] ([facility]) [address] [facility], [place], [address], 11/01/2024 15:54:32 11/02/19 25 11/01/2024 COMP METAB OLIC PANEL bilirubin total 0.40 mg/dL 0.10-1 .00 Not Available [facility] ([facility]) [address] [facility], [place], [address], 11/01/2024 15:54:32 11/02/19 25 11/01/2024 COMP METAB OLIC PANEL AST (SGOT) 33 U/L 0-37 Not Available [facility] ([facility]) [address] [facility], [place], [address], 11/01/2024 15:54:32 11/02/19 25 11/01/2024 COMP METAB OLIC PANEL ALT (SGPT) 11 U/L 0-65 Not Available [facility] ([facility]) [address] [facility], [place], [address], 11/01/2024 15:54:32 11/02/19 25 11/01/2024 COMP METAB OLIC PANEL alk phosphatase 327 U/L 46-116 high Not Available [facility] ([facility]) [address] [facility], [place], [address], 11/01/2024 15:54:32 11/02/19 25 11/03/2024 CEA cea [...] t be inter prete d as absol [place] ev[place] nce of the prese nce or absen ce of [facility]. Perfo rmed at: [facility] [address], [place] [address] 1262 Lab Direc tor: Tate staton PhD, Phone : [phone] Not Available [facility] ([facility]) [address] [facility], [place], [address], 11/03/2024 13:11:48 07/28/19 25 07/28/2024 CT ABD pel w/ (IV [facility] al [address] [place] [address] Phone: Fax: Name: VICKY MCMAHAN Exam Date: : [birth year] Age 78 years Gender : F Access ion: [id number] 2023 Physic jesus: HANNA PARKER Facili ty: [facility] Facili ty HSV: Outpat ient Exam: CT ABD PEL W/ (IV ^ ORAL) CT ABDOME N PELVIS WITH IV CONTRA ST 025 2:46 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 Legall y authen ticate d by VAMSHI Trevino RAFAEL 0 07-28 15:46: 13 CC'ed Logic: Orderi ng Provid er: DIGNA LUGO Attend ing Provid er: DIGNA LUGO Referr ing Provid er: DIGNA LUGO Admitt ing Provid er: DIGNA taylor[address] [place] [address] - Physical Therapy [address] [facility], [place], [address], 07/29/2024 11:36:27 08/02/19 25 07/28/2024 CT, chest , w/ contr ast [facility] Hospit al [address] [place] [address] Phone: Fax: Name: VICKY MCMAHAN Exam Date: 025 : [birth year] Age 78 years Gender : F Access ion: [id number] 2023 Physic jesus: HANNA PARKER Facili [...] you for referr VICKY Delgado to [facility] al. Legall y authen ticate d by AVIS ALBA IN 07-28 15:46: 34 CC'ed Logic: Orderi ng Provid er: DIGNA LUGO Attend ing Provid er: DIGNA LUGO Referr ing Provid er: DIGNA LUGO Admitt ing Provid er: DIGNA LUGO [address] - Physical Therapy [address] [place] [address], [address], 08/01/2024 10:49:34 Result Notes Documentation Provider Name and Address Organization Details Recorded Time Ct, Chest, W/ Contrast : [place] [address] Name: VICKY ROBLERO Exam Date: 07/28/2024 : 1945 Age 78 years Gender: F Physician: HANNA FOURNIER Facility: [facility] Facility HSV: Outpatient Exam: CT CHEST [...] by: Robert Underwood MD 08/01/2024 10:35 AM [facility] Dictated By: Robert Underwood Transcribed By: Transcribed On: 07/28/2024 3:46 PM Electronically signed by: Robert Underwood 07/28/2024 Thank you for referring VICKY ROBLERO to [facility]. Legally authenticated by ZAHEER GOODWIN 2024-07-28 15:46:34 CC'ed Logic: Ordering Provider: IRLANAD LUGO Attending Provider: IRLANDA LUGO Referring Provider: IRLANDA LUGO Admitting Provider: [address], [place], [address], [place] [facility] [place] [facility] [place] 08/01/2024 10:49:34 Problems Name Problem SNOMED Code Status Onset Date Resolution Date Notes Provider Name and Address Organization Details Recorded Time Headache 52157516 Active 2024 Christine yusuf, [place] - [facility] [place] [facility] [place] 5 10:27:12 Metastatic malignant neoplasm to liver 18769866 Active [address], [place], [address] , [place] [facility] [place] [facility] [place] 3 14:27:25 Mass of colon 161261417 Active [address], [place], [address] , [place] [facility] [place] [facility] [place] 3 14:27:30 Anemia 764970420 Active [address], [place], [address] , [place] - [facility] & [place] 3 14:27:36 Nausea and vomiting 60199759 Active 2022 Ghassan Lieberman PA-C [address], [place], [address] , [place] - [facility] & [place] 3 14:27:46 Unintentional weight loss 938629912 Active 2022 Ghassan Lieberman PA-C [address], [place], [address] , [place] [facility] & [place] 3 16:13:07 Night sweats 79792685 Active 2022 Ghassan Lieberman PA-C [address], [place], [address] , [place] - [facility] & [place] 3 16:13:12 Problem Notes Documentation Provider Name [...] any needs/concerns arise. Christine yusuf CURT Lai [facility] & [place] 08/03/2024 14:10:12 Oncology Patient Navigator : ONN met with pt at [facility]. Pt states she is doing well and inquired about her cancer care policy. ONN faxed paperwork to [facility] on 07/26. Pt states that cancer policy states she has not received anything. Pt DIL gave me contact infomation. [phone]. Pt cancer policy number is [id number]. ONN will resend information to cancer policy. Pt denies any questions/concerns at this time. ONN encouraged pt to reach out may any needs/concerns arise. Christine yusuf CURT [facility] & [place] 08/10/2024 13:29:49 Oncology Patient Navigator : SW [...] resubmit the documents. CURT Johnston - BERNIE [facility] & [place] 08/15/2024 14:22:48 Oncology Patient Navigator : ONN [...] may any needs/concerns arise. CURT [facility] [place] [facility] [place] 08/25/2024 14:45:18 Oncology Patient Navigator : Pt [...] needs/concerns arise. CURT [facility] [place] & [place] 09/06/2024 10:04:19 Oncology Patient Navigator : ONN contacted pt this afternoon to check in and see how she was doing after discharge from [facility]. Pt states she is doing much better, [...] very appreciative of all the staff of [facility]. ONN encouraged pt to reach out may any needs/concerns arise. CURT [facility] & [place] 09/14/2024 15:13:43 Oncology Patient Navigator : ONN met with pt at [facility] with medical oncology. Pt states she is doing well at this time. Hospice consult was briefly discussed and pt declined at this time. ONN encouraged pt to reach out may any needs/concerns arise. [facility] [place] [facility] [place] 11/01/2024 13:52:48 Procedures Surgical History Date Name Laterality Status Provider Name and Address Organization Details Recorded Time 04/29/20 23 Venipuncture completed Hanna Fournier PA-C [address] , [place], [address], [place] [facility] [place] 04/27/2023 15:05:29 04/15/20 23 Venipuncture completed Stephanie ELIAS [facility] & [place] 04/15/2023 15:24:55 hysterectomy completed Laurel ELIAS [facility] & [place] 03/11/2023 15:30:22 extraction of cataract completed Laurel Lai [facility] & [place] 03/11/2023 15:30:36 excision of colon completed Loree Tadeo [facility] & [place] 04/21/2023 11:32:07 Imaging Results None recorded. Procedure Notes None recorded. Medical Equipment None Reported. Allergies Allergen ID Allergen Name Allergen Category Reaction Reaction Severity Criticality Documentation Date Start Date Code Code System Note Provider Name and Address Organization Details Recorded Time 88783 tetracycl ine medicatio n hives Not available [facility] 02/19/2023 67951 RxNorm CURT Johnston [facility] & [place] 14:03:33 Medications Name Sig Start Date Stop [...] Updated DateTime 5 162.56 cm 35.2 kg/m2 38899.4 4 g 97.7 [degF] 60 /min 99 % 99 % 159 mm[Hg] 61 mm[Hg] [facility]urel [facility] & [place] 5 12:08:08 Date Recorded Body height Body mass index (BMI) Body weight Body temperature Oxygen saturation Oxygen saturation in Arterial blood by Pulse oximetry Heart rate Respiratory rate Systolic blood pressure Diastolic blood pressure Provider Name and Address Organization Details Last Updated DateTime 5 162.56 cm 36 kg/m2 12193.4 g 97 [degF] 90 % 90 % 57 /min 18 /min 143 mm[Hg] 68 mm[Hg] [facility] [place] 5 10:00:38 Date Recorded Body height Body mass index (BMI) Body weight Body temperature Oxygen saturation Oxygen saturation in Arterial blood by Pulse oximetry Heart rate Respiratory rate Systolic blood pressure Diastolic blood pressure Provider Name and Address Organization Details Last Updated DateTime 5 162.56 cm 35.2 kg/m2 51475.4 4 g 97.5 [degF] 98 % 98 % 20 /min 83 /min 140 mm[Hg] 68 mm[Hg] [facility] [place] 5 09:42:28 Date Recorded Body height Body temperature Oxygen saturation Oxygen saturation in Arterial blood by Pulse oximetry Heart rate Respiratory rate Systolic blood pressure Diastolic blood pressure Provider Name and Address Organization Details Last Updated DateTime 5 162.56 cm 97.2 [degF] 95 % 95 % 141 /min 20 /min 137 mm[Hg] 86 mm[Hg] [facility] & [place] 5 12:09:03 Date Recorded Body height Body mass index (BMI) Body weight Body temperature Oxygen saturation Oxygen saturation in Arterial blood by Pulse oximetry Heart rate Systolic blood pressure Diastolic blood pressure Provider Name and Address Organization Details Last Updated DateTime 5 162.56 cm 33.5 kg/m2 74944.5 1 g 97.6 [degF] 98 % 98 % 75 /min 185 mm[Hg] 79 mm[Hg] Laurel [facility] [place] 13:16:39 Social History Question Answer Notes LastModified by Interview Rocket Details LastModified Time Tobacco Smoking Status Never Smoker CURT Johnston [facility] [place] 02/19/2023 14:02:59 What Is Your Level Of Caffeine Consumption? None [email or web address] Information not available 02/19/2023 What Was The Date Of Your Most Recent Tobacco Screening? 11/23/2023 [email or web address] Information not available 11/23/2023 Has Tobacco Cessation Counseling Been Provided? No [email or web address] Information not available 07/13/2023 Sex: Unknown Functional Status Question Answer Note LastModified by Interview Rocket Details LastModified Time Do you use any illicit or recreational drugs? No [email or web address] Information not available 02/19/2023 Do you or have you ever used any other forms of tobacco or nicotine? No [email or web address] Information not available 02/19/2023 What is your level of alcohol consumption? None [email or web address] Information not available 02/19/2023 Mental Status None recorded. Family History Nothing Reported. Medical History No medical history recorded. Gynecological HistoryNo gynecological history recorded. Obstetrics History GPAL:G 0 P 0 0 0 0 Immunizations Vaccine Type Date Status Note Provider Nam e and Address Organization Details Recorded Time pneumococcal polysaccharide PPV23 7 completed Stephanie Maravilla CURT yusuf [facility] [place] 12/21/2023 09:56:34 Past Encounters Encounter ID Performer Location Encounter Start Date Encounter Closed Date Diagnosis/Indication Diagnosis SNOMED-CT Code Diagnosis ICD10 Code Diagnosis Note [id number] Ghassan Lieberman PA-C [facility] [address] [address] 02/19/2023 13:50:39 02/19/2023 14:35:58 Metastatic malignant neoplasm to liver 89122355 C78.7 Mass of colon 635729710 R19.09 Anemia 243802275 D64.9 Nausea and vomiting 1693 1999 R11.2 Unintentio nal weight loss 128625998 R63.4 Night sweats 66814226 R6 1 [id number] Addy Gonzales MD [facility] [address] [facility] [place] [address] 03/10/2023 13:05:53 03/10/2023 14:02:07 Mass of colon 646277302 R19.09 Ascending colon. Patient has had ongoing [...] and possibilit y of ostomy. Liver mass 553581887 R16 .0 [id number] Tomy King MD [facility] [address] [place] [address] 03/11/2023 14:55:42 03/11/2023 16:34:54 Malignant tumor of ascending colon 408016174 C18.2 CT scan of the abdomen and [...] tissue sampling. Metastatic malignant neoplasm to liver 62163853 C78.7 CT scan of the abdomen and [...] colon cancer. Will follow-up tissue biopsy. Nausea 335923430 R11.0 As needed Zofran and Phenergan prescribed . Pain due t o neoplastic disease 2568914097 9102 G89.3 Right upper quadrant pain secondary to liver metastasis . Patient currently taking Tylenol. Discussed as needed oxycodone to limit Tylenol exposure. Anemia 825512810 D64.9 Right-side d colon mass concerning for malignancy . Will assess for any signs of iron deficiency . Most recent hemoglobin at 8.0. Concern for blood loss from colon mass. Patient reports dark stools. Adopted 881329258 Z62.89 8 Patient is adopted and discussed hereditary gene panel. Patient does have family history of her son having bladder cancer. [id number] Tomy King MD [facility] [address] [place] [address] 04/15/2023 14:08:30 04/15/2023 15:42:28 Malignant tumor of ascending colon 847861080 C18.2 CT scan of the abdomen and [...] 8.2 hematocrit 29.0. MCV 67.9. Platelet count 025064. Normal cell differenti al. Low serum folate [...] metastatic colorectal cancer. Discussed chemothera py with [place] based regimen with 5FU Leucovorin if KRAS wild type would also add Vectibix to therapy. Will follow-up. Patient returns on April 15, 2023. Will start chemothera py as soon as possible. Metastatic malignant neoplasm to liver 02066676 C78.7 CT scan of the abdomen and [...] Findings concerning for metastatic colon cancer. Nausea 986700853 R11.0 As needed Zofran and Phenergan prescribed . Pain due t o neoplastic disease 7623841205 9102 G89.3 Right upper quadrant pain secondary to liver metastasis . Patient currently taking Tylenol. Discussed as needed oxycodone to limit Tylenol exposure. Anemia 970135876 D64.9 Right-side d colon mass concerning for malignancy . Will assess for any signs of iron deficiency . Most recent hemoglobin at 8.0. Concern for blood loss from colon mass. Patient reports dark stools. Adopted 213726403 Z62.89 8 Patient is adopted and discussed hereditary gene panel. Patient does have family history of her son having bladder cancer. Will send [facility] hereditary panel. [id number] Addy Gonzales MD [facility] [address] [facility] [place] [address] 04/21/2023 11:07:18 04/21/2023 11:47:40 Malignant tumor of ascending colon 409800965 C18.2 Patient has follow-up with Oncology, is debating if she wishes any further treatment at this point. I have recommende d continuing lifting restrictio ns for another 2 weeks, then can resume activity as tolerated. Patient can follow-up with me if she has ongoing issues or questions. [id number] Hanna Fournier PA-C [facility] [address] [place] [address] 04/29/2023 10:08:09 04/29/2023 10:08:41 Malignant tumor of ascending colon 250296492 C18.2 CT scan of the abdomen and [...] 8.2 hematocrit 29.0. MCV 67.9. Platelet count 602969. Normal cell differenti al. Low serum folate [...] metastatic colorectal cancer. Discussed chemothera py with [place] based regimen with 5FU Leucovorin if [...] improvemen t. Metastatic malignant neoplasm to liver 90819583 C78.7 CT scan of the abdomen and [...] Findings concerning for metastatic colon cancer. Nausea 181415532 R11.0 As needed Zofran and Phenergan prescribed . Pain due t o neoplastic disease 4164578698 9102 G89.3 Right upper quadrant pain secondary to liver metastasis . Patient currently taking Tylenol. Discussed as needed oxycodone to limit Tylenol exposure. Anemia 476011775 D64.9 Right-side d colon mass concerning for malignancy . Will assess for any signs of iron deficiency . Most recent hemoglobin at 8.0. Concern for blood loss from colon mass. Patient reports dark stools. Adopted 318020051 Z62.89 8 Patient is adopted and discussed hereditary gene panel. Patient does have family history of her son having bladder cancer. Will send [facility] hereditary panel. Antineopla stic chemotherapy regimen 571532596 Z51.11 Cycle 1 5FU Leucovorin Vectibix on April 29, 2023. Hypomagnesemia 614871444 E83.42 Patient returns on April 29, 2023. Magnesium level is 1.7 today. Will give 1 g magnesium IV. Hypokalemia 71923425 E87 .6 Patient returns on April 29, 2023. Potassium is low at 2.9. Will send prescripti on for potassium 20 mEq daily. Will follow-up labs again next week. Loss of appetite 8720334 6 R63.0 Patient has had nausea and decreased appetite since her cancer diagnosis. She can not tolerate her nutritiona l drinks. She does take Phenergan with relief. She continues to lose weight. Will send prescripti on for Megace. [id number] Hanna Fournier PA-C [facility] [address] [place] [address] 05/04/2023 09:35:22 05/04/2023 09:45:11 Malignant tumor of ascending colon 623660303 C18.2 CT scan of the abdomen and [...] 8.2 hematocrit 29.0. MCV 67.9. Platelet count 736094. Normal cell differenti al. Low serum folate [...] metastatic colorectal cancer. Discussed chemothera py with [place] based regimen with 5FU Leucovorin if [...] has started on Megace. Will follow-up for [facility]. Metastatic malignant neoplasm to liver 10174482 C78.7 CT scan of the abdomen and [...] Findings concerning for metastatic colon cancer. Nausea 261781317 R11.0 As needed Zofran and Phenergan prescribed . Pain due t o neoplastic disease 6432833938 9102 G89.3 Right upper quadrant pain secondary to liver metastasis . Patient currently taking Tylenol. Discussed as needed oxycodone to limit Tylenol exposure. Anemia 572705152 D64.9 Right-side d colon mass concerning for malignancy . Will assess for any signs of iron deficiency . Most recent hemoglobin at 8.0. Concern for blood loss from colon mass. Patient reports dark stools. Adopted 238854925 Z62.89 8 Patient is adopted and discussed hereditary gene panel. Patient does have family history of her son having bladder cancer. Will send [facility] hereditary panel. Antineopla stic chemotherapy regimen 873033076 Z51.11 Cycle 1 5FU Leucovorin Vectibix on April 29, 2023. Cycle 2 5FU Leucovorin Vectibix on May 04, 2023. Hypomagnesemia 238944501 E83.42 Patient returns on April 29, 2023. Magnesium level is 1.7 today. Will give 1 g magnesium IV. Hypokalemia 81775386 E87 .6 Patient returns on April 29, 2023. Potassium is low at 2.9. Will send prescripti on for potassium 20 mEq daily. Will follow-up labs again next week. Loss of appetite 0084626 6 R63.0 Patient has had nausea and decreased appetite since her cancer diagnosis. She can not tolerate her nutritiona l drinks. She does take Phenergan with relief. She continues to lose weight. Will send prescripti on for Megace. [id number] Hanna Fournier PA-C [facility] [address] [place] [address] 05/11/2023 09:04:44 05/11/2023 13:02:16 Malignant tumor of ascending colon 681457698 C18.2 CT scan of the abdomen and [...] 8.2 hematocrit 29.0. MCV 67.9. Platelet count 903785. Normal cell differenti al. Low serum folate [...] metastatic colorectal cancer. Discussed chemothera py with [place] based regimen with 5FU Leucovorin if [...] angela t. Metastatic malignant neoplasm to liver 96969826 C78.7 CT scan of the abdomen and [...] Findings concerning for metastatic colon cancer. Nausea 233211823 R11.0 As needed Zofran and Phenergan prescribed . Pain due t o neoplastic disease 6334738218 9102 G89.3 Right upper quadrant pain secondary to liver metastasis . Patient currently taking Tylenol. Discussed as needed oxycodone to limit Tylenol exposure. Anemia 264005641 D64.9 Right-side d colon mass concerning for malignancy . Will assess for any signs of iron deficiency . Most recent hemoglobin at 8.0. Concern for blood loss from colon mass. Patient reports dark stools. Adopted 737261869 Z62.89 8 Patient is adopted and discussed hereditary gene panel. Patient does have family history of her son having bladder cancer. Will send [facility] hereditary panel. Antineopla stic chemotherapy regimen 609626672 Z51.11 Cycle 1 5FU Leucovorin Vectibix on April 29, 2023. Cycle 2 5FU Leucovorin Vectibix on May 04, 2023. Cycle 3 5FU Leucovorin Vectibix on May 11, 2023. Hypomagnesemia 761026692 E83.42 Patient returns on April 29, 2023. Magnesium level is 1.7 today. Will give 1 g magnesium IV. Hypokalemia 49361560 E87 .6 Patient returns on April 29, 2023. Potassium is low at 2.9. Will send prescripti on for potassium 20 mEq daily. Will follow-up labs again next week. Loss of appetite 6404743 6 R63.0 Patient has had nausea and decreased appetite since her cancer diagnosis. She can not tolerate her nutritiona l drinks. She does take Phenergan with relief. She continues to lose weight. Will send prescripti on for Megace. Acute conjunctivitis 537 36442 H10.32 Patient returns on May 11, 2023. She has had erythema, conjuntiva inflammati on, discharged and matted left eye. She has been using warm compresses . Will send prescripti on for eye drops for conjunctiv itis. Diarrhea 13555659 R19.7 She has had diarrhea since night. She has tried Imodium and Pepto. Discussed taking Lomotil instead. [id number] Addy Gonzales MD [facility] [address] [facility] [place] [address] 05/07/2023 13:50:57 05/07/2023 15:14:30 Malignant tumor of ascending colon 061886828 C18.2 I have scheduled the patient for venous port placement. informed consent was obtained. Risks of the procedure including bleeding, infection, catheter complicati ons and damage to surroundin g structures were discussed [id number] Hanna Fournier PA-C [facility] [address] [place] [address] 06/02/2023 09:27:10 06/02/2023 10:20:16 Malignant tumor of ascending colon 241644944 C18.2 CT scan of the abdomen and [...] 8.2 hematocrit 29.0. MCV 67.9. Platelet count 340040. Normal cell differenti al. Low serum folate [...] metastatic colorectal cancer. Discussed chemothera py with [place] based regimen with 5FU Leucovorin if [...] labs today. Metastatic malignant neoplasm to liver 75340621 C78.7 CT scan of the abdomen and [...] Findings concerning for metastatic colon cancer. Nausea 037052142 R11.0 As needed Zofran and Phenergan prescribed . Pain due t o neoplastic disease 2383535850 9102 G89.3 Right upper quadrant pain secondary to liver metastasis . Patient currently taking Tylenol. Discussed as needed oxycodone to limit Tylenol exposure. Anemia 886611060 D64.9 Right-side d colon mass concerning for malignancy . Will assess for any signs of iron deficiency . Most recent hemoglobin at 8.0. Concern for blood loss from colon mass. Patient reports dark stools. Adopted 395996167 Z62.89 8 Patient is adopted and discussed hereditary gene panel. Patient does have family history of her son having bladder cancer. Will send [facility] hereditary panel. Antineopla stic chemotherapy regimen 597394476 Z51.11 Cycle 1 5FU Leucovorin Vectibix on April 29, 2023. Cycle 2 5FU Leucovorin Vectibix on May 04, 2023. Cycle 3 5FU Leucovorin Vectibix on May 11, 2023. Hypomagnesemia 228711803 E83.42 Patient returns on April 29, 2023. Magnesium level is 1.7 today. Will give 1 g magnesium IV. Hypokalemia 85798153 E87 .6 Patient returns on April 29, 2023. Potassium is low at 2.9. Will send prescripti on for potassium 20 mEq daily. Will follow-up labs again next week. Loss of appetite 5832360 6 R63.0 Patient has had nausea and decreased appetite since her cancer diagnosis. She can not tolerate her nutritiona l drinks. She does take Phenergan with relief. She continues to lose weight. Will send prescripti on for Megace. Acute conjunctivitis 537 02278 H10.32 Patient returns on May 11, 2023. She has had erythema, conjuntiva inflammati on, discharged and matted left eye. She has been using warm compresses . Will send prescripti on for eye drops for conjunctiv itis. Diarrhea 01316440 R19.7 Diarrhea has resolved. Patient with recent C diff Deep venou s thrombosis 707589813 I82.409 Patient developed right lower extremity pain and edema. Venous duplex on May 28, 2023 with evidence of deep vein thrombosis . Started on Eliquis 5 mg 1 tab p.o. b.i.d.. Did not start with Eliquis starter pack due to recent bleeding. Patient had a DVT and a PE in 1990 after her hysterecto my. Will order hypercoagu lable panel today. Anxiety 00236952 F41.9 Patient has had increased anxiety. She is tearful and crying during her visit today due to all of her health problems. She does not want to take an antidepres melina at this time. Discussed low-dose Ativan. Muscle weakness 08958110 M62.81 Patient is feeling weak and is requesting a lift chair. Will see if insurance will cover. Discussed home health but patient declines at this time. [id number] Tomy King MD [facility] [address] [place] [address] 06/08/2023 09:23:07 06/08/2023 11:39:14 Malignant tumor of ascending colon 347075592 C18.2 CT scan of the abdomen and [...] 8.2 hematocrit 29.0. MCV 67.9. Platelet count 295079. Normal cell differenti al. Low serum folate [...] labs today. Metastatic malignant neoplasm to liver 90406172 C78.7 CT scan of the abdomen and [...] Findings concerning for metastatic colon cancer. Nausea 674889096 R11.0 As needed Zofran and Phenergan prescribed . Pain due t o neoplastic disease 6017915612 9102 G89.3 Right upper quadrant pain secondary to liver metastasis . Patient currently taking Tylenol. Discussed as needed oxycodone to limit Tylenol exposure. Anemia 990141070 D64.9 Right-side d colon mass concerning for malignancy . Will assess for any signs of iron deficiency . Most recent hemoglobin at 8.0. Concern for blood loss from colon mass. Patient reports dark stools. Adopted 672649645 Z62.89 8 Patient is adopted and discussed hereditary gene panel. Patient does have family history of her son having bladder cancer. Will send [facility] hereditary panel. Antineopla stic chemotherapy regimen 115332619 Z51.11 Week 1 5FU Leucovorin Vectibix on [...] return for cycle 2 day 1 Hypomagnesemia 240271777 E83.42 Patient returns on April 29, 2023. Magnesium level is 1.7 today. Will give 1 g magnesium IV. Hypokalemia 68447746 E87 .6 Patient returns on April 29, 2023. Potassium is low at 2.9. Will send prescripti on for potassium 20 mEq daily. Will follow-up labs again next week. Loss of appetite 9261362 6 R63.0 Patient has had nausea and decreased appetite since her cancer diagnosis. She can not tolerate her nutritiona l drinks. She does take Phenergan with relief. She continues to lose weight. Will send prescripti on for Megace. Acute conjunctivitis 537 66882 H10.32 Patient returns on May 11, 2023. She has had erythema, conjuntiva inflammati on, discharged and matted left eye. She has been using warm compresses . Will send prescripti on for eye drops for conjunctiv itis.Will send in repeat prescripti on for eye drops. Diarrhea 88875919 R19.7 Diarrhea has resolved. Patient with recent C diff Deep venou s thrombosis 148297390 I82.409 Patient developed right lower extremity pain and edema.Veno us duplex on May 28, 2023 with evidence of deep vein thrombosis . Started on Eliquis 5 mg 1 tab p.o. b.i.d.. Did not start with Eliquis starter pack due to recent bleeding. Patient had a DVT and a PE in 1990 after her hysterecto my. Anxiety 46420545 F41.9 Patient has had increased anxiety. She is tearful and crying during her visit today due to all of her health problems. She does not want to take an antidepres melina at this time. Discussed low-dose Ativan. Improvemen t in mood overall on visit from June 08, 2023. [id number] Addy Gonzales MD [facility] [address] [facility] [place] [address] 06/05/2023 10:23:30 06/05/2023 11:32:28 Malignant tumor of ascending colon 995881587 C18.2 Needs port placed, cannot do this [...] can save her the long drive in. [id number] Tomy King MD [facility] [address] [place] [address] 06/22/2023 10:06:43 06/22/2023 12:44:59 Malignant tumor of ascending colon 314403133 C18.2 CT scan of the abdomen and [...] 8.2 hematocrit 29.0. MCV 67.9. Platelet count 970765. Normal cell differenti al. Low serum folate [...] next month. Metastatic malignant neoplasm to liver 27812041 C78.7 CT scan of the abdomen and [...] Findings concerning for metastatic colon cancer. Nausea 699724668 R11.0 As needed Zofran and Phenergan prescribed . Pain due t o neoplastic disease 2154720999 9102 G89.3 Right upper quadrant pain secondary to liver metastasis . Patient currently taking Tylenol. Discussed as needed oxycodone to limit Tylenol exposure. Anemia 262909602 D64.9 Right-side d colon mass concerning for malignancy . Will assess for any signs of iron deficiency . Most recent hemoglobin at 8.0. Concern for blood loss from colon mass. Patient reports dark stools. Adopted 702550403 Z62.89 8 Patient is adopted and discussed hereditary gene panel. Patient does have family history of her son having bladder cancer. Will send [facility] hereditary panel. Antineopla stic chemotherapy regimen 221676547 Z51.11 Week 1 5FU Leucovorin Vectibix on [...] and Vectibix on July 06, 2023. Hypokalemia 35437867 E87 .6 Patient returns on April 29, 2023. Potassium is low at 2.9. Will send prescripti on for potassium 20 mEq daily. Will follow-up labs again next week. Loss of appetite 5313714 6 R63.0 Patient has had nausea and decreased appetite since her cancer diagnosis. She can not tolerate her nutritiona l drinks. She does take Phenergan with relief. She continues to lose weight. Will send prescripti on for Megace. Acute conjunctivitis 537 39254 H10.32 Patient returns on May 11, 2023. She has had erythema, conjuntiva inflammati on, discharged and matted left eye. She has been using warm compresses . Will send prescripti on for eye drops for conjunctiv itis.Will send in repeat prescripti on for eye drops. Diarrhea 76698807 R19.7 Diarrhea has resolved. Patient with recent C diff Deep venou s thrombosis 659197820 I82.409 Patient developed right lower extremity pain and edema.Veno us duplex on May 28, 2023 with evidence of deep vein thrombosis . Started on Eliquis 5 mg 1 tab p.o. b.i.d.. Did not start with Eliquis starter pack due to recent bleeding. Patient had a DVT and a PE in 1990 after her hysterecto my. Anxiety 75505465 F41.9 Patient has had increased anxiety. She is tearful and crying during her visit today due to all of her health problems. She does not want to take an antidepres melina at this time. Discussed low-dose Ativan. Improvemen t in mood overall on visit from June 08, 2023. [id number] Tomy King MD [facility] [address] [place] [address] 07/13/2023 09:25:11 07/13/2023 10:53:59 Malignant tumor of ascending colon 998891301 C18.2 CT scan of the abdomen and [...] 8.2 hematocrit 29.0. MCV 67.9. Platelet count 191750. Normal cell differenti al. Low serum folate [...] for now. Metastatic malignant neoplasm to liver 53583523 C78.7 CT scan of the abdomen and [...] Findings concerning for metastatic colon cancer. Nausea 915553919 R11.0 As needed Zofran and Phenergan prescribed . Pain due t o neoplastic disease 5950255032 9102 G89.3 Right upper quadrant pain secondary to liver metastasis . Patient currently taking Tylenol. Discussed as needed oxycodone to limit Tylenol exposure. Anemia 892774353 D64.9 Right-side d colon mass concerning for malignancy . Will assess for any signs of iron deficiency . Most recent hemoglobin at 8.0. Concern for blood loss from colon mass. Patient reports dark stools. Adopted 848564347 Z62.89 8 Patient is adopted and discussed hereditary gene panel. Patient does have family history of her son having bladder cancer. Will send [facility] hereditary panel. Antineopla stic chemotherapy regimen 635972988 Z51.11 Week 1 5FU Leucovorin Vectibix on April 29, 2023.Week 2 5FU Leucovorin Vectibix on May 04, 2023.Week 3 5FU Leucovorin Vectibix on May 11, 2023.Week 4 5FU Leucovorin and Vectibix on June 08, 2023.Day 29 of 5FU Leucovorin and Vectibix on June 22, 2023. Cycle 2 day 1 of 5FU Leucovorin and Vectibix on July 13, 2023. Hypokalemia 25245181 E87 .6 Patient returns on April 29, 2023. Potassium is low at 2.9. Will send prescripti on for potassium 20 mEq daily. Will follow-up labs again next week. Loss of appetite 6433007 6 R63.0 Patient has had nausea and decreased appetite since her cancer diagnosis. She can not tolerate her nutritiona l drinks. She does take Phenergan with relief. She continues to lose weight. Will send prescripti on for Megace. Acute conjunctivitis 537 73000 H10.32 Patient returns on May 11, 2023. She has had erythema, conjuntiva inflammati on, discharged and matted left eye. She has been using warm compresses . Will send prescripti on for eye drops for conjunctiv itis.Will send in repeat prescripti on for eye drops. Diarrhea 49574525 R19.7 Diarrhea has resolved. Patient with recent C diff Deep venou s thrombosis 042776448 I82.411 Patient developed right lower extremity pain and edema.Veno us duplex on May 28, 2023 with evidence of deep vein thrombosis . Started on Eliquis 5 mg 1 tab p.o. b.i.d.. Did not start with Eliquis starter pack due to recent bleeding. Patient had a DVT and a PE in 1990 after her hysterecto my. Anxiety 72039692 F41.9 Patient has had increased anxiety. She is tearful and crying during her visit today due to all of her health problems. She does not want to take an antidepres melina at this time. Discussed low-dose Ativan. Improvemen t in mood overall on visit from June 08, 2023. [id number] Hanna Fournier PA-C [facility] [address] [place] [address] 07/27/2023 09:02:25 07/27/2023 10:25:44 Malignant tumor of ascending colon 286484532 C18.2 CT scan of the abdomen and [...] 8.2 hematocrit 29.0. MCV 67.9. Platelet count 166076. Normal cell differenti al. Low serum folate [...] Will follow-up Metastatic malignant neoplasm to liver 73579995 C78.7 CT scan of the abdomen and [...] Findings concerning for metastatic colon cancer. Nausea 558864846 R11.0 As needed Zofran and Phenergan prescribed . Pain due t o neoplastic disease [id number] 9102 G89.3 Right upper quadrant pain secondary to liver metastasis . Patient currently taking Tylenol. Discussed as needed oxycodone to limit Tylenol exposure. Anemia 013574054 D64.9 Right-side d colon mass concerning for malignancy . Will assess for any signs of iron deficiency . Most recent hemoglobin at 8.0. Concern for blood loss from colon mass. Patient reports dark stools. Adopted [id number] Z62.89 8 Patient is adopted and discussed hereditary gene panel. Patient does have family history of her son having bladder cancer. Will send [facility] hereditary panel. Antineopla stic chemotherapy regimen 238990915 Z51.11 Week 1 5FU Leucovorin Vectibix on [...] and Vectibix on July 27, 2023. Hypokalemia 07754650 E87 .6 Patient returns on April 29, 2023. Potassium is low at 2.9. Will send prescripti on for potassium 20 mEq daily. Will follow-up labs again next week. Loss of appetite 9439693 6 R63.0 Patient has had nausea and decreased appetite since her cancer diagnosis. She can not tolerate her nutritiona l drinks. She does take Phenergan with relief. She continues to lose weight. Will send prescripti on for Megace. Acute conjunctivitis 537 44368 H10.32 Patient returns on May 11, 2023. She has had erythema, conjuntiva inflammati on, discharged and matted left eye. She has been using warm compresses . Will send prescripti on for eye drops for conjunctiv itis.Will send in repeat prescripti on for eye drops. Diarrhea 90695868 R19.7 Diarrhea has resolved. Patient with recent C diff Deep venou s thrombosis [id number] I82.409 Patient developed right lower extremity pain and edema.Veno us duplex on May 28, 2023 with evidence of deep vein thrombosis . Started on Eliquis 5 mg 1 tab p.o. b.i.d.. Did not start with Eliquis starter pack due to recent bleeding. Patient had a DVT and a PE in 1990 after her hysterecto my. Anxiety 02727907 F41.9 Patient has had increased anxiety. She is tearful and crying during her visit today due to all of her health problems. She does not want to take an antidepres emlina at this time. Discussed low-dose Ativan. Improvemen t in mood overall on visit from June 08, 2023. [id number] Hanna Fournier PA-C [facility] [address] [place] [address] 08/10/2023 09:01:37 08/10/2023 09:59:21 Malignant tumor of ascending colon 140796217 C18.2 CT scan of the abdomen and [...] 8.2 hematocrit 29.0. MCV 67.9. Platelet count 420556. Normal cell differenti al. Low serum folate [...] Will follow-up. Metastatic malignant neoplasm to liver 87578185 C78.7 CT scan of the abdomen and [...] Findings concerning for metastatic colon cancer. Nausea 289460038 R11.0 As needed Zofran and Phenergan prescribed . Pain due t o neoplastic disease [id number] 9102 G89.3 Right upper quadrant pain secondary to liver metastasis . Patient currently taking Tylenol. Discussed as needed oxycodone to limit Tylenol exposure. Anemia 821323367 D64.9 Right-side d colon mass concerning for malignancy . Will assess for any signs of iron deficiency . Most recent hemoglobin at 8.0. Concern for blood loss from colon mass. Patient reports dark stools. Adopted 903777505 Z62.89 8 Patient is adopted and discussed hereditary gene panel. Patient does have family history of her son having bladder cancer. Will send [facility] hereditary panel. Antineopla stic chemotherapy regimen 088586062 Z51.11 Week 1 5FU Leucovorin Vectibix on [...] and Vectibix on August 10, 2023. Hypokalemia 65611259 E87 .6 Patient returns on April 29, 2023. Potassium is low at 2.9. Will send prescripti on for potassium 20 mEq daily. Will follow-up labs again next week. Loss of appetite 5027842 6 R63.0 Patient has had nausea and decreased appetite since her cancer diagnosis. She can not tolerate her nutritiona l drinks. She does take Phenergan with relief. She continues to lose weight. Will send prescripti on for Megace. Acute conjunctivitis 537 43359 H10.32 Patient returns on May 11, 2023. She has had erythema, conjuntiva inflammati on, discharged and matted left eye. She has been using warm compresses . Will send prescripti on for eye drops for conjunctiv itis.Will send in repeat prescripti on for eye drops. Diarrhea 11918736 R19.7 Diarrhea has resolved. Patient with recent C diff Deep venou s thrombosis 574201474 I82.409 Patient developed right lower extremity pain and edema.Veno us duplex on May 28, 2023 with evidence of deep vein thrombosis . Started on Eliquis 5 mg 1 tab p.o. b.i.d.. Did not start with Eliquis starter pack due to recent bleeding. Patient had a DVT and a PE in 1990 after her hysterecto my. Anxiety 95297608 F41.9 Patient has had increased anxiety. She is tearful and crying during her visit today due to all of her health problems. She does not want to take an antidepres melina at this time. Discussed low-dose Ativan. Improvemen t in mood overall on visit from June 08, 2023. [id number] Hanna Fournier PA-C [facility] [address] [place] [address] 08/24/2023 09:22:37 08/24/2023 09:52:19 Malignant tumor of ascending colon 936003598 C18.2 CT scan of the abdomen and [...] 8.2 hematocrit 29.0. MCV 67.9. Platelet count 621449. Normal cell differenti al. Low serum folate [...] Will follow-up Metastatic malignant neoplasm to liver 89353777 C78.7 CT scan of the abdomen and [...] Findings concerning for metastatic colon cancer. Nausea 177513802 R11.0 As needed Zofran and Phenergan prescribed . Pain due t o neoplastic disease 2830253086 9102 G89.3 Right upper quadrant pain secondary to liver metastasis . Patient currently taking Tylenol. Discussed as needed oxycodone to limit Tylenol exposure. Anemia 051173022 D64.9 Right-side d colon mass concerning for malignancy . Will assess for any signs of iron deficiency . Most recent hemoglobin at 8.0. Concern for blood loss from colon mass. Patient reports dark stools. Adopted 835641704 Z62.89 8 Patient is adopted and discussed hereditary gene panel. Patient does have family history of her son having bladder cancer. Will send [facility] hereditary panel. Antineopla stic chemotherapy regimen 948248709 Z51.11 Week 1 5FU Leucovorin Vectibix on [...] and Vectibix on August 24, 2023. Hypokalemia 97865978 E87 .6 Patient returns on April 29, 2023. Potassium is low at 2.9. Will send prescripti on for potassium 20 mEq daily. Will follow-up labs again next week. Loss of appetite 0906631 6 R63.0 Patient has had nausea and decreased appetite since her cancer diagnosis. She can not tolerate her nutritiona l drinks. She does take Phenergan with relief. She continues to lose weight. Will send prescripti on for Megace. Acute conjunctivitis 535 16231 H10.32 Patient returns on May 11, 2023. She has had erythema, conjuntiva inflammati on, discharged and matted left eye. She has been using warm compresses . Will send prescripti on for eye drops for conjunctiv itis.Will send in repeat prescripti on for eye drops. Diarrhea 48916395 R19.7 Diarrhea has resolved. Patient with recent C diff Deep venou s thrombosis 447343022 I82.409 Patient developed right lower extremity pain and edema.Veno us duplex on May 28, 2023 with evidence of deep vein thrombosis . Started on Eliquis 5 mg 1 tab p.o. b.i.d.. Did not start with Eliquis starter pack due to recent bleeding. Patient had a DVT and a PE in 1990 after her hysterecto my. Anxiety 80781410 F41.9 Patient has had increased anxiety. She is tearful and crying during her visit today due to all of her health problems. She does not want to take an antidepres melina at this time. Discussed low-dose Ativan. Improvemen t in mood overall on visit from June 08, 2023. [id number] Hanna Fournier PA-C [facility] [address] [place] [address] 09/07/2023 08:42:30 09/07/2023 09:21:28 Malignant tumor of ascending colon 839092907 C18.2 CT scan of the abdomen and [...] 8.2 hematocrit 29.0. MCV 67.9. Platelet count 370072. Normal cell differenti al. Low serum folate [...] Will follow-up. Metastatic malignant neoplasm to liver 14827116 C78.7 CT scan of the abdomen and [...] Findings concerning for metastatic colon cancer. Nausea 707796254 R11.0 As needed Zofran and Phenergan prescribed . Pain due t o neoplastic disease 7618849370 9102 G89.3 Right upper quadrant pain secondary to liver metastasis . Patient currently taking Tylenol. Discussed as needed oxycodone to limit Tylenol exposure. Anemia 461234659 D64.9 Right-side d colon mass concerning for malignancy . Will assess for any signs of iron deficiency . Most recent hemoglobin at 8.0. Concern for blood loss from colon mass. Patient reports dark stools. Adopted 359037016 Z62.89 8 Patient is adopted and discussed hereditary gene panel. Patient does have family history of her son having bladder cancer. Will send [facility] hereditary panel. Antineopla stic chemotherapy regimen 654469519 Z51.11 Week 1 5FU Leucovorin Vectibix on [...] Vectibix today secondary to conjunctiv itis Hypokalemia 93291572 E87 .6 Patient returns on April 29, 2023. Potassium is low at 2.9. Will send prescripti on for potassium 20 mEq daily. Will follow-up labs again next week. Loss of appetite 0939105 6 R63.0 Patient has had nausea and decreased appetite since her cancer diagnosis. She can not tolerate her nutritiona l drinks. She does take Phenergan with relief. She continues to lose weight. Will send prescripti on for Megace. Acute conjunctivitis 537 49903 H10.32 Patient returns on May 11, 2023. She has had erythema, conjuntiva inflammati on, discharged and matted left eye. She has been using warm compresses . Will send prescripti on for eye drops for conjunctiv itis.Will send in repeat prescripti on for eye drops. Diarrhea 54405076 R19.7 Diarrhea has resolved. Patient with recent C diff Deep venou s thrombosis 282770244 I82.409 Patient developed right lower extremity pain and edema.Veno us duplex on May 28, 2023 with evidence of deep vein thrombosis . Started on Eliquis 5 mg 1 tab p.o. b.i.d.. Did not start with Eliquis starter pack due to recent bleeding. Patient had a DVT and a PE in 1990 after her hysterecto my. Anxiety 75541005 F41.9 Patient has had increased anxiety. She is tearful and crying during her visit today due to all of her health problems. She does not want to take an antidepres melina at this time. Discussed low-dose Ativan. Improvemen t in mood overall on visit from June 08, 2023. [id number] Tomy King MD [facility] [address] [place] [address] 09/21/2023 09:41:41 09/21/2023 11:20:44 Malignant tumor of ascending colon 885203459 C18.2 CT scan of the abdomen and [...] 8.2 hematocrit 29.0. MCV 67.9. Platelet count 858861. Normal cell differenti al. Low serum folate [...] to improve. Metastatic malignant neoplasm to liver 99379726 C78.7 CT scan of the abdomen and [...] Findings concerning for metastatic colon cancer. Nausea 947848633 R11.0 As needed Zofran and Phenergan prescribed . Pain due t o neoplastic disease 4555219525 9102 G89.3 Right upper quadrant pain secondary to liver metastasis . Patient currently taking Tylenol. Discussed as needed oxycodone to limit Tylenol exposure. Anemia 592255657 D64.9 Right-side d colon mass concerning for malignancy . Will assess for any signs of iron deficiency . Most recent hemoglobin at 8.0. Concern for blood loss from colon mass. Patient reports dark stools. Adopted 859682431 Z62.89 8 Patient is adopted and discussed hereditary gene panel. Patient does have family history of her son having bladder cancer. Will send [facility] hereditary panel. Antineopla stic chemotherapy regimen 000905980 Z51.11 Week 1 5FU Leucovorin Vectibix on [...] dose held secondary to conjunctiv itis. Hypokalemia 02366151 E87 .6 Patient returns on April 29, 2023. Potassium is low at 2.9. Will send prescripti on for potassium 20 mEq daily. Will follow-up labs again next week. Loss of appetite 7030408 6 R63.0 Patient has had nausea and decreased appetite since her cancer diagnosis. She can not tolerate her nutritiona l drinks. She does take Phenergan with relief. She continues to lose weight. Will send prescripti on for Megace. Acute conjunctivitis 086 54703 H10.32 Patient returns on May 11, 2023. She has had erythema, conjuntiva inflammati on, discharged and matted left eye. She has been using warm compresses . Will send prescripti on for eye drops for conjunctiv itis.Will send in repeat prescripti on for eye drops. Diarrhea 03748845 R19.7 Diarrhea has resolved. Patient with recent C diff Deep venou s thrombosis 252830604 I82.409 Patient developed right lower extremity pain and edema.Veno us duplex on May 28, 2023 with evidence of deep vein thrombosis . Started on Eliquis 5 mg 1 tab p.o. b.i.d.. Did not start with Eliquis starter pack due to recent bleeding. Patient had a DVT and a PE in 1990 after her hysterecto my. Anxiety 33461915 F41.9 Patient has had increased anxiety. She is tearful and crying during her visit today due to all of her health problems. She does not want to take an antidepres melina at this time. Discussed low-dose Ativan. Improvemen t in mood overall on visit from June 08, 2023. [id number] Hanna Fournier PA-C [facility] [address] [place] [address] 10/05/2023 09:19:08 10/05/2023 10:17:18 Malignant tumor of ascending colon 055105152 C18.2 CT scan of the abdomen and [...] 8.2 hematocrit 29.0. MCV 67.9. Platelet count 763822. Normal cell differenti al. Low serum folate [...] bilaterall y. Metastatic malignant neoplasm to liver 62024422 C78.7 CT scan of the abdomen and [...] Findings concerning for metastatic colon cancer. Nausea 930907926 R11.0 As needed Zofran and Phenergan prescribed . Pain due t o neoplastic disease 1037482528 9102 G89.3 Right upper quadrant pain secondary to liver metastasis . Patient currently taking Tylenol. Discussed as needed oxycodone to limit Tylenol exposure. Anemia 751515209 D64.9 Right-side d colon mass concerning for malignancy . Will assess for any signs of iron deficiency . Most recent hemoglobin at 8.0. Concern for blood loss from colon mass. Patient reports dark stools. Adopted 751492626 Z62.89 8 Patient is adopted and discussed hereditary gene panel. Patient does have family history of her son having bladder cancer. Will send [facility] hereditary panel. Antineopla stic chemotherapy regimen 068162551 Z51.11 Week 1 5FU Leucovorin Vectibix on [...] membranes of the eyes bilaterall y. Hypokalemia 19344704 E87 .6 Patient returns on April 29, 2023. Potassium is low at 2.9. Will send prescripti on for potassium 20 mEq daily. Will follow-up labs again next week. Loss of appetite 5825528 6 R63.0 Patient has had nausea and decreased appetite since her cancer diagnosis. She can not tolerate her nutritiona l drinks. She does take Phenergan with relief. She continues to lose weight. Will send prescripti on for Megace. Acute conjunctivitis 254 79322 H10.32 Patient returns on May 11, 2023. She has had erythema, conjuntiva inflammati on, discharged and matted left eye. She has been using warm compresses . Will send prescripti on for eye drops for conjunctiv itis.Will send in repeat prescripti on for eye drops. Diarrhea 50437384 R19.7 Diarrhea has resolved. Patient with recent C diff Deep venou s thrombosis 534434404 I82.409 Patient developed right lower extremity pain and edema.Veno us duplex on May 28, 2023 with evidence of deep vein thrombosis . Started on Eliquis 5 mg 1 tab p.o. b.i.d.. Did not start with Eliquis starter pack due to recent bleeding. Patient had a DVT and a PE in 1990 after her hysterecto my. Anxiety 16974899 F41.9 Patient has had increased anxiety. She is tearful and crying during her visit today due to all of her health problems. She does not want to take an antidepres melina at this time. Discussed low-dose Ativan. Improvemen t in mood overall on visit from June 08, 2023. [id number] Hanna Fournier PA-C [facility] [address] [place] [address] 10/19/2023 09:07:50 10/19/2023 10:19:57 Malignant tumor of ascending colon 830684861 C18.2 CT scan of the abdomen and [...] 8.2 hematocrit 29.0. MCV 67.9. Platelet count 687072. Normal cell differenti al. Low serum folate [...] appropriat froilan. Metastatic malignant neoplasm to liver 18599373 C78.7 CT scan of the abdomen and [...] Findings concerning for metastatic colon cancer. Nausea 940625521 R11.0 As needed Zofran and Phenergan prescribed . Pain due t o neoplastic disease 4700005094 9102 G89.3 Right upper quadrant pain secondary to liver metastasis . Patient currently taking Tylenol. Discussed as needed oxycodone to limit Tylenol exposure. Anemia 052970852 D64.9 Right-side d colon mass concerning for malignancy . Will assess for any signs of iron deficiency . Most recent hemoglobin at 8.0. Concern for blood loss from colon mass. Patient reports dark stools. Adopted 834383999 Z62.89 8 Patient is adopted and discussed hereditary gene panel. Patient does have family history of her son having bladder cancer. Will send [facility] hereditary panel. Antineopla stic chemotherapy regimen 210999983 Z51.11 Week 1 5FU Leucovorin Vectibix on [...] with Vectibix on October 19, 2023. Hypokalemia 33723915 E87 .6 Patient returns on April 29, 2023. Potassium is low at 2.9. Will send prescripti on for potassium 20 mEq daily. Will follow-up labs again next week. Loss of appetite 1936681 6 R63.0 Patient has had nausea and decreased appetite since her cancer diagnosis. She can not tolerate her nutritiona l drinks. She does take Phenergan with relief. She continues to lose weight. Will send prescripti on for Megace. Acute conjunctivitis 866 52417 H10.32 Patient returns on May 11, 2023. She has had erythema, conjuntiva inflammati on, discharged and matted left eye. She has been using warm compresses . Will send prescripti on for eye drops for conjunctiv itis.Will send in repeat prescripti on for eye drops. Diarrhea 88569217 R19.7 Diarrhea has resolved. Patient with recent C diff Deep venou s thrombosis 132329864 I82.409 Patient developed right lower extremity pain and edema.Veno us duplex on May 28, 2023 with evidence of deep vein thrombosis . Started on Eliquis 5 mg 1 tab p.o. b.i.d.. Did not start with Eliquis starter pack due to recent bleeding. Patient had a DVT and a PE in 1990 after her hysterecto my. Anxiety 20355029 F41.9 Patient has had increased anxiety. She is tearful and crying during her visit today due to all of her health problems. She does not want to take an antidepres melina at this time. Discussed low-dose Ativan. Improvemen t in mood overall on visit from June 08, 2023. [id number] Hanna Fournier PA-C [facility] [address] [place] [address] 11/02/2023 09:20:10 11/02/2023 09:58:16 Malignant tumor of ascending colon 452514026 C18.2 CT scan of the abdomen and [...] 8.2 hematocrit 29.0. MCV 67.9. Platelet count 033443. Normal cell differenti al. Low serum folate [...] ed Eliquis Metastatic malignant neoplasm to liver 68009114 C78.7 CT scan of the abdomen and [...] Findings concerning for metastatic colon cancer. Nausea 247522952 R11.0 As needed Zofran and Phenergan prescribed . Pain due t o neoplastic disease 2074318818 9102 G89.3 Right upper quadrant pain secondary to liver metastasis . Patient currently taking Tylenol. Discussed as needed oxycodone to limit Tylenol exposure. Anemia 716037427 D64.9 Right-side d colon mass concerning for malignancy . Will assess for any signs of iron deficiency . Most recent hemoglobin at 8.0. Concern for blood loss from colon mass. Patient reports dark stools. Adopted 206838612 Z62.89 8 Patient is adopted and discussed hereditary gene panel. Patient does have family history of her son having bladder cancer. Will send [facility] hereditary panel. Antineopla stic chemotherapy regimen 928017705 Z51.11 Week 1 5FU Leucovorin Vectibix on [...] with Vectibix on November 02, 2023. Hypokalemia 39327896 E87 .6 Patient returns on April 29, 2023. Potassium is low at 2.9. Will send prescripti on for potassium 20 mEq daily. Will follow-up labs again next week. Loss of appetite 3801577 6 R63.0 Patient has had nausea and decreased appetite since her cancer diagnosis. She can not tolerate her nutritiona l drinks. She does take Phenergan with relief. She continues to lose weight. Will send prescripti on for Megace. Acute conjunctivitis 537 50762 H10.32 Patient returns on May 11, 2023. She has had erythema, conjuntiva inflammati on, discharged and matted left eye. She has been using warm compresses . Will send prescripti on for eye drops for conjunctiv itis.Will send in repeat prescripti on for eye drops. Diarrhea 75436661 R19.7 Diarrhea has resolved. Patient with recent C diff Deep venou s thrombosis 723899826 I82.409 Patient developed right lower extremity pain and edema.Veno us duplex on May 28, 2023 with evidence of deep vein thrombosis . Started on Eliquis 5 mg 1 tab p.o. b.i.d.. Did not start with Eliquis starter pack due to recent bleeding. Patient had a DVT and a PE in 1990 after her hysterecto my. Anxiety 94895890 F41.9 Patient has had increased anxiety. She is tearful and crying during her visit today due to all of her health problems. She does not want to take an antidepres melina at this time. Discussed low-dose Ativan. Improvemen t in mood overall on visit from June 08, 2023. [id number] Addy Gonzales MD [facility] [address] [facility] [place] [address] 11/03/2023 13:09:58 11/03/2023 14:02:01 Malignant tumor of ascending colon 175820894 C18.2 I have scheduled the patient for [...] as a part of this patient's care. [id number] Hanna Fournier PA-C [facility] [address] [place] [address] 11/23/2023 09:05:54 11/23/2023 09:52:19 Malignant tumor of ascending colon 731897441 C18.2 CT scan of the abdomen and [...] 8.2 hematocrit 29.0. MCV 67.9. Platelet count 550202. Normal cell differenti al. Low serum folate [...] mg daily. Metastatic malignant neoplasm to liver 22888797 C78.7 CT scan of the abdomen and [...] Findings concerning for metastatic colon cancer. Nausea 038954532 R11.0 As needed Zofran and Phenergan prescribed . Pain due t o neoplastic disease 9207453742 9102 G89.3 Right upper quadrant pain secondary to liver metastasis . Patient currently taking Tylenol. Discussed as needed oxycodone to limit Tylenol exposure. Anemia 494237964 D64.9 Right-side d colon mass concerning for malignancy . Will assess for any signs of iron deficiency . Most recent hemoglobin at 8.0. Concern for blood loss from colon mass. Patient reports dark stools. Adopted 028901522 Z62.89 8 Patient is adopted and discussed hereditary gene panel. Patient does have family history of her son having bladder cancer. Will send [facility] hereditary panel. Antineopla stic chemotherapy regimen [id number] Z51.11 Week 1 5FU Leucovorin Vectibix on [...] with Vectibix on November 23, 2023. Hypokalemia 33744936 E87 .6 Patient returns on April 29, 2023. Potassium is low at 2.9. Will send prescripti on for potassium 20 mEq daily. Will follow-up labs again next week. Loss of appetite 0757649 6 R63.0 Patient has had nausea and decreased appetite since her cancer diagnosis. She can not tolerate her nutritiona l drinks. She does take Phenergan with relief. She continues to lose weight. Will send prescripti on for Megace. Acute conjunctivitis 537 53273 H10.32 Patient returns on May 11, 2023. She has had erythema, conjuntiva inflammati on, discharged and matted left eye. She has been using warm compresses . Will send prescripti on for eye drops for conjunctiv itis.Will send in repeat prescripti on for eye drops. Diarrhea 44912581 R19.7 Diarrhea has resolved. Patient with recent C diff Deep venou s thrombosis 314718017 I82.409 Patient developed right lower extremity pain and edema.Veno us duplex on May 28, 2023 with evidence of deep vein thrombosis . Started on Eliquis 5 mg 1 tab p.o. b.i.d.. Did not start with Eliquis starter pack due to recent bleeding. Patient had a DVT and a PE in 1990 after her hysterecto my. Anxiety 59674943 F41.9 Patient has had increased anxiety. She is tearful and crying during her visit today due to all of her health problems. She does not want to take an antidepres melina at this time. Discussed low-dose Ativan. Improvemen t in mood overall on visit from June 08, 2023. Mixed anxi ety and depressive disorder 006730712 F41.8 Patient returns on November 23, 2023. [...] Mirtazapin e dose to 30 mg daily. [id number] Tomy King MD [facility] [address] [place] [address] 12/07/2023 09:01:54 12/07/2023 09:40:34 Malignant tumor of ascending colon 863420513 C18.2 CT scan of the abdomen and [...] 8.2 hematocrit 29.0. MCV 67.9. Platelet count 414950. Normal cell differenti al. Low serum folate [...] 2 weeks. Metastatic malignant neoplasm to liver 66558396 C78.7 CT scan of the abdomen and [...] Findings concerning for metastatic colon cancer. Nausea 731211374 R11.0 As needed Zofran and Phenergan prescribed . Pain due t o neoplastic disease [id number] 9102 G89.3 Right upper quadrant pain secondary to liver metastasis . Patient currently taking Tylenol. Discussed as needed oxycodone to limit Tylenol exposure. Anemia 877467519 D64.9 Right-side d colon mass concerning for malignancy . Will assess for any signs of iron deficiency . Most recent hemoglobin at 8.0. Concern for blood loss from colon mass. Patient reports dark stools. Adopted [id number] Z62.89 8 Patient is adopted and discussed hereditary gene panel. Patient does have family history of her son having bladder cancer. Will send [facility] hereditary panel. Antineopla stic chemotherapy regimen 745438311 Z51.11 Week 1 5FU Leucovorin Vectibix on [...] with Vectibix on December 07, 2023. Hypokalemia 89570068 E87 .6 Patient returns on April 29, 2023. Potassium is low at 2.9. Will send prescripti on for potassium 20 mEq daily. Will follow-up labs again next week. Deep venou s thrombosis 003845589 I82.409 Patient developed right lower extremity pain and edema.Veno us duplex on May 28, 2023 with evidence of deep vein thrombosis . Started on Eliquis 5 mg 1 tab p.o. b.i.d.. Did not start with Eliquis starter pack due to recent bleeding. Patient had a DVT and a PE in 1990 after her hysterecto my. Mixed anxi ety and depressive disorder 789931878 F41.8 Patient returns on November 23, 2023. [...] to 30 mg daily. Atopic conjunctivitis 23 3530274 H10.12 Patient with conjunctiv itis of the left eye. Holding Vectibix today on December 07, 2023. Continue with current therapy. Will follow up again in 2 weeks. [id number] Hanna Fournier PA-C [facility] [address] [place] [address] 12/21/2023 09:48:25 12/21/2023 10:21:03 Malignant tumor of ascending colon 125667085 C18.2 CT scan of the abdomen and [...] 8.2 hematocrit 29.0. MCV 67.9. Platelet count 214715. Normal cell differenti al. Low serum folate [...] 2 weeks. Metastatic malignant neoplasm to liver 98133664 C78.7 CT scan of the abdomen and [...] Findings concerning for metastatic colon cancer. Nausea 676776397 R11.0 As needed Zofran and Phenergan prescribed . Pain due t o neoplastic disease [id number] 9102 G89.3 Right upper quadrant pain secondary to liver metastasis . Patient currently taking Tylenol. Discussed as needed oxycodone to limit Tylenol exposure. Anemia 756814203 D64.9 Right-side d colon mass concerning for malignancy . Will assess for any signs of iron deficiency . Most recent hemoglobin at 8.0. Concern for blood loss from colon mass. Patient reports dark stools. Adopted 381180156 Z62.89 8 Patient is adopted and discussed hereditary gene panel. Patient does have family history of her son having bladder cancer. Will send [facility] hereditary panel. Antineopla stic chemotherapy regimen 441614359 Z51.11 Week 1 5FU Leucovorin Vectibix on [...] with Vectibix on November 21, 2023. Hypokalemia 85674626 E87 .6 Patient returns on April 29, 2023. Potassium is low at 2.9. Will send prescripti on for potassium 20 mEq daily. Will follow-up labs again next week. Deep venou s thrombosis 788915644 I82.409 Patient developed right lower extremity pain and edema.Veno us duplex on May 28, 2023 with evidence of deep vein thrombosis . Started on Eliquis 5 mg 1 tab p.o. b.i.d.. Did not start with Eliquis starter pack due to recent bleeding. Patient had a DVT and a PE in 1990 after her hysterecto my. Mixed anxi ety and depressive disorder 928061585 F41.8 Patient returns on November 23, 2023. [...] to 30 mg daily. Atopic conjunctivitis 23 3203777 H10.12 Patient with conjunctiv itis of the left eye. Held Vectibix on December 07, 2023. Continue with current therapy. Will follow up again in 2 weeks. [id number] Hanna Fournier PA-C [facility] [address] [place] [address] 01/04/2024 09:55:59 01/04/2024 10:32:04 Malignant tumor of ascending colon 828232272 C18.2 CT scan of the abdomen and [...] 8.2 hematocrit 29.0. MCV 67.9. Platelet count 925975. Normal cell differenti al. Low serum folate [...] January 2024. Metastatic malignant neoplasm to liver 27660084 C78.7 CT scan of the abdomen and [...] Findings concerning for metastatic colon cancer. Nausea 073126397 R11.0 As needed Zofran and Phenergan prescribed . Pain due t o neoplastic disease 0295433093 9102 G89.3 Right upper quadrant pain secondary to liver metastasis . Patient currently taking Tylenol. Discussed as needed oxycodone to limit Tylenol exposure. Anemia 667654734 D64.9 Right-side d colon mass concerning for malignancy . Will assess for any signs of iron deficiency . Most recent hemoglobin at 8.0. Concern for blood loss from colon mass. Patient reports dark stools. Adopted 077162425 Z62.89 8 Patient is adopted and discussed hereditary gene panel. Patient does have family history of her son having bladder cancer. Will send [facility] hereditary panel. Antineopla stic chemotherapy regimen 436794466 Z51.11 Week 1 5FU Leucovorin Vectibix on [...] without Vectibix on January 04, 2024. Hypokalemia 82219864 E87 .6 Patient returns on April 29, 2023. Potassium is low at 2.9. Will send prescripti on for potassium 20 mEq daily. Will follow-up labs again next week. Deep venou s thrombosis 898977343 I82.409 Patient developed right lower extremity pain and edema.Veno us duplex on May 28, 2023 with evidence of deep vein thrombosis . Started on Eliquis 5 mg 1 tab p.o. b.i.d.. Did not start with Eliquis starter pack due to recent bleeding. Patient had a DVT and a PE in 1990 after her hysterecto my. Mixed anxi ety and depressive disorder 267838458 F41.8 Patient returns on November 23, 2023. [...] to 30 mg daily. Atopic conjunctivitis 23 1980422 H10.12 Patient with conjunctiv itis of the left eye. Held Vectibix on December 07, 2023. Continue with current therapy. Will follow up again in 2 weeks. Iron defic iency anemia 53275211 D50.9 [id number] Hanna Fournier PA-C [facility] [address] [place] [address] 01/25/2024 09:42:09 01/25/2024 10:49:14 Malignant tumor of ascending colon 110939348 C18.2 CT scan of the abdomen and [...] 8.2 hematocrit 29.0. MCV 67.9. Platelet count 213344. Normal cell differenti al. Low serum folate [...] Will schedule. Metastatic malignant neoplasm to liver 47775517 C78.7 CT scan of the abdomen and [...] Findings concerning for metastatic colon cancer. Nausea 053213855 R11.0 As needed Zofran and Phenergan prescribed . Pain due t o neoplastic disease 9484612570 9102 G89.3 Right upper quadrant pain secondary to liver metastasis . Patient currently taking Tylenol. Discussed as needed oxycodone to limit Tylenol exposure. Anemia 035870532 D64.9 Right-side d colon mass concerning for malignancy . Will assess for any signs of iron deficiency . Most recent hemoglobin at 8.0. Concern for blood loss from colon mass. Patient reports dark stools. Adopted 026370392 Z62.89 8 Patient is adopted and discussed hereditary gene panel. Patient does have family history of her son having bladder cancer. Will send [facility] hereditary panel. Antineopla stic chemotherapy regimen 150762553 Z51.11 Week 1 5FU Leucovorin Vectibix on [...] with Vectibix on January 25, 2024. Hypokalemia 52548156 E87 .6 Patient returns on April 29, 2023. Potassium is low at 2.9. Will send prescripti on for potassium 20 mEq daily. Will follow-up labs again next week. Deep venou s thrombosis 147666070 I82.409 Patient developed right lower extremity pain and edema.Veno us duplex on May 28, 2023 with evidence of deep vein thrombosis . Started on Eliquis 5 mg 1 tab p.o. b.i.d.. Did not start with Eliquis starter pack due to recent bleeding. Patient had a DVT and a PE in 1990 after her hysterecto my. Mixed anxi ety and depressive disorder 137456825 F41.8 Patient returns on November 23, 2023. [...] to 30 mg daily. Atopic conjunctivitis 23 9865024 H10.12 Patient with conjunctiv itis of the left eye. Held Vectibix on December 07, 2023. Continue with current therapy. Will follow up again in 2 weeks. Iron defic iency anemia 76271479 D50.9 [id number] Hanna Fournier PA-C [facility] [address] [place] [address] 02/08/2024 09:30:04 02/08/2024 10:49:29 Malignant tumor of ascending colon 543278803 C18.2 CT scan of the abdomen and [...] 8.2 hematocrit 29.0. MCV 67.9. Platelet count 254899. Normal cell differenti al. Low serum folate [...] follow-up imaging. Metastatic malignant neoplasm to liver 59925288 C78.7 CT scan of the abdomen and [...] Findings concerning for metastatic colon cancer. Nausea 527787755 R11.0 As needed Zofran and Phenergan prescribed . Pain due t o neoplastic disease 3689663804 9102 G89.3 Right upper quadrant pain secondary to liver metastasis . Patient currently taking Tylenol. Discussed as needed oxycodone to limit Tylenol exposure. Anemia 452318505 D64.9 Right-side d colon mass concerning for malignancy . Will assess for any signs of iron deficiency . Most recent hemoglobin at 8.0. Concern for blood loss from colon mass. Patient reports dark stools. Adopted 323123341 Z62.89 8 Patient is adopted and discussed hereditary gene panel. Patient does have family history of her son having bladder cancer. Will send [facility] hereditary panel. Antineopla stic chemotherapy regimen 814881921 Z51.11 Week 1 5FU Leucovorin Vectibix on [...] without Vectibix on February 08, 2024. Hypokalemia 88034100 E87 .6 Patient returns on April 29, 2023. Potassium is low at 2.9. Will send prescripti on for potassium 20 mEq daily. Will follow-up labs again next week. Deep venou s thrombosis 494640713 I82.409 Patient developed right lower extremity pain and edema.Veno us duplex on May 28, 2023 with evidence of deep vein thrombosis . Started on Eliquis 5 mg 1 tab p.o. b.i.d.. Did not start with Eliquis starter pack due to recent bleeding. Patient had a DVT and a PE in 1990 after her hysterecto my. Mixed anxi ety and depressive disorder 377518453 F41.8 Patient returns on November 23, 2023. [...] to 30 mg daily. Atopic conjunctivitis 23 9652430 H10.12 Patient with conjunctiv itis of the left eye. Held Vectibix on December 07, 2023. Continue with current therapy. Will follow up again in 2 weeks. Iron defic iency anemia 42508622 D50.9 Will follow up labs Insomnia 243018023 G47.0 0 Patient returns on February 08, 2024. She has had difficulty sleeping for most of her life. She has tried multiple medication s without relief. She is tried Mirtazapin e and lorazepam without improvemen t of insomnia. Discussed trying trazodone instead. Will send prescripti on. Will send prescripti on for Requip for restless legs. Restless legs 13341884 G 25.81 Patient returns on February 08, 2024. She has had difficulty sleeping for most of her life. She has tried multiple medication s without relief. She is tried Mirtazapin e and lorazepam without improvemen t of insomnia. Discussed trying trazodone instead. Will send prescripti on. Will send prescripti on for Requip for restless legs. [id number] Hanna Fournier PA-C [facility] [address] [place] [address] 02/22/2024 10:08:45 02/22/2024 10:41:02 Malignant tumor of ascending colon 712522419 C18.2 CT scan of the abdomen and [...] 8.2 hematocrit 29.0. MCV 67.9. Platelet count 809810. Normal cell differenti al. Low serum folate [...] 15, 2024. Metastatic malignant neoplasm to liver 90304695 C78.7 CT scan of the abdomen and [...] Findings concerning for metastatic colon cancer. Nausea 832687018 R11.0 As needed Zofran and Phenergan prescribed . Pain due t o neoplastic disease 2763974025 9102 G89.3 Right upper quadrant pain secondary to liver metastasis . Patient currently taking Tylenol. Discussed as needed oxycodone to limit Tylenol exposure. Anemia 033857777 D64.9 Right-side d colon mass concerning for malignancy . Will assess for any signs of iron deficiency . Most recent hemoglobin at 8.0. Concern for blood loss from colon mass. Patient reports dark stools. Adopted 602848371 Z62.89 8 Patient is adopted and discussed hereditary gene panel. Patient does have family history of her son having bladder cancer. Will send [facility] hereditary panel. Antineopla stic chemotherapy regimen 042141579 Z51.11 Week 1 5FU Leucovorin Vectibix on [...] with Vectibix on February 22, 2024. Hypokalemia 36048834 E87 .6 Patient returns on April 29, 2023. Potassium is low at 2.9. Will send prescripti on for potassium 20 mEq daily. Will follow-up labs again next week. Deep venou s thrombosis 018525181 I82.409 Patient developed right lower extremity pain and edema.Veno us duplex on May 28, 2023 with evidence of deep vein thrombosis . Started on Eliquis 5 mg 1 tab p.o. b.i.d.. Did not start with Eliquis starter pack due to recent bleeding. Patient had a DVT and a PE in 1990 after her hysterecto my. Mixed anxi ety and depressive disorder 005209323 F41.8 Patient returns on November 23, 2023. [...] to 30 mg daily. Atopic conjunctivitis 23 4901867 H10.12 Patient with conjunctiv itis of the left eye. Held Vectibix on December 07, 2023. Continue with current therapy. Will follow up again in 2 weeks. Iron defic iency anemia 07369050 D50.9 Will follow up labs Insomnia 782891993 G47.0 0 Patient returns on February 08, 2024. She has had difficulty sleeping for most of her life. She has tried multiple medication s without relief. She is tried Mirtazapin e and lorazepam without improvemen t of insomnia. Discussed trying trazodone instead. Will send prescripti on. Will send prescripti on for Requip for restless legs. Restless legs 87400430 G 25.81 Patient returns on February 08, 2024. She has had difficulty sleeping for most of her life. She has tried multiple medication s without relief. She is tried Mirtazapin e and lorazepam without improvemen t of insomnia. Discussed trying trazodone instead. Will send prescripti on. Will send prescripti on for Requip for restless legs. Infection of skin and/or subcutaneous tissue 68599628 L08.9 Patient returns on February 22, 2024. Patient has paronychia of the left ring finger after pulling a piece of loose skin yesterday. No abscess or drainage present. Discussed topical antibiotic s plus warm water soaks. Will send prescripti on. Discussed if does not improve or worsens will do oral antibiotic s. Will follow-up. [id number] Hanna Fournier PA-C [facility] [address] [place] [address] 03/07/2024 10:12:33 03/07/2024 11:14:04 Malignant tumor of ascending colon 400720303 C18.2 CT scan of the abdomen and [...] 8.2 hematocrit 29.0. MCV 67.9. Platelet count 313824. Normal cell differenti al. Low serum folate [...] 15, 2024. Metastatic malignant neoplasm to liver 19692175 C78.7 CT scan of the abdomen and [...] Findings concerning for metastatic colon cancer. Nausea 511675950 R11.0 As needed Zofran and Phenergan prescribed . Pain due t o neoplastic disease 7722004407 9102 G89.3 Right upper quadrant pain secondary to liver metastasis . Patient currently taking Tylenol. Discussed as needed oxycodone to limit Tylenol exposure. Anemia 731160399 D64.9 Right-side d colon mass concerning for malignancy . Will assess for any signs of iron deficiency . Most recent hemoglobin at 8.0. Concern for blood loss from colon mass. Patient reports dark stools. Adopted 645645771 Z62.89 8 Patient is adopted and discussed hereditary gene panel. Patient does have family history of her son having bladder cancer. Will send [facility] hereditary panel. Antineopla stic chemotherapy regimen 493934488 Z51.11 Week 1 5FU Leucovorin Vectibix on [...] with Vectibix on March 07, 2024. Hypokalemia 21136580 E87 .6 Patient returns on April 29, 2023. Potassium is low at 2.9. Will send prescripti on for potassium 20 mEq daily. Will follow-up labs again next week. Deep venou s thrombosis 126244474 I82.409 Patient developed right lower extremity pain and edema.Veno us duplex on May 28, 2023 with evidence of deep vein thrombosis . Started on Eliquis 5 mg 1 tab p.o. b.i.d.. Did not start with Eliquis starter pack due to recent bleeding. Patient had a DVT and a PE in 1990 after her hysterecto my. Mixed anxi ety and depressive disorder 663814887 F41.8 Patient returns on November 23, 2023. [...] to 30 mg daily. Atopic conjunctivitis 23 9985772 H10.12 Patient with conjunctiv itis of the left eye. Held Vectibix on December 07, 2023. Continue with current therapy. Will follow up again in 2 weeks. Iron defic iency anemia 31968801 D50.9 Will follow up labs Insomnia 053232896 G47.0 0 Patient returns on February 08, 2024. She has had difficulty sleeping for most of her life. She has tried multiple medication s without relief. She is tried Mirtazapin e and lorazepam without improvemen t of insomnia. Discussed trying trazodone instead. Will send prescripti on. Will send prescripti on for Requip for restless legs. Restless legs 32942708 G 25.81 Patient returns on February 08, 2024. She has had difficulty sleeping for most of her life. She has tried multiple medication s without relief. She is tried Mirtazapin e and lorazepam without improvemen t of insomnia. Discussed trying trazodone instead. Will send prescripti on. Will send prescripti on for Requip for restless legs. Infection of skin and/or subcutaneous tissue 06648599 L08.9 Patient returns on February 22, 2024. Patient has paronychia of the left ring finger after pulling a piece of loose skin yesterday. No abscess or drainage present. Discussed topical antibiotic s plus warm water soaks. Will send prescripti on. Discussed if does not improve or worsens will do oral antibiotic s. Will follow-up. This has resolved. [id number] Hanna Fournier PA-C [facility] [address] [place] [address] 03/21/2024 09:44:36 03/21/2024 10:52:41 Malignant tumor of ascending colon 108985214 C18.2 CT scan of the abdomen and [...] 8.2 hematocrit 29.0. MCV 67.9. Platelet count 680328. Normal cell differenti al. Low serum folate [...] current therapy. Metastatic malignant neoplasm to liver 12864555 C78.7 CT scan of the abdomen and [...] Findings concerning for metastatic colon cancer. Nausea 124240993 R11.0 As needed Zofran and Phenergan prescribed . Pain due t o neoplastic disease 0015245580 9102 G89.3 Right upper quadrant pain secondary to liver metastasis . Patient currently taking Tylenol. Discussed as needed oxycodone to limit Tylenol exposure. Anemia 095420374 D64.9 Right-side d colon mass concerning for malignancy . Will assess for any signs of iron deficiency . Most recent hemoglobin at 8.0. Concern for blood loss from colon mass. Patient reports dark stools. Adopted 189513638 Z62.89 8 Patient is adopted and discussed hereditary gene panel. Patient does have family history of her son having bladder cancer. Will send [facility] hereditary panel. Antineopla stic chemotherapy regimen 148443369 Z51.11 Week 1 5FU Leucovorin Vectibix on [...] with Vectibix on March 21, 2024. Hypokalemia 95802389 E87 .6 Patient returns on April 29, 2023. Potassium is low at 2.9. Will send prescripti on for potassium 20 mEq daily. Will follow-up labs again next week. Deep venou s thrombosis 596672365 I82.409 Patient developed right lower extremity pain and edema.Veno us duplex on May 28, 2023 with evidence of deep vein thrombosis . Started on Eliquis 5 mg 1 tab p.o. b.i.d.. Did not start with Eliquis starter pack due to recent bleeding. Patient had a DVT and a PE in 1990 after her hysterecto my. Mixed anxi ety and depressive disorder 644100901 F41.8 Patient returns on November 23, 2023. [...] to 30 mg daily. Atopic conjunctivitis 23 3786864 H10.12 Patient with conjunctiv itis of the left eye. Held Vectibix on December 07, 2023. Continue with current therapy. Will follow up again in 2 weeks. Iron defic iency anemia 19870663 D50.9 Will follow up labs Insomnia 392579377 G47.0 0 Patient returns on February 08, 2024. She has had difficulty sleeping for most of her life. She has tried multiple medication s without relief. She is tried Mirtazapin e and lorazepam without improvemen t of insomnia. Discussed trying trazodone instead. Will send prescripti on. Will send prescripti on for Requip for restless legs. Restless legs 69421623 G 25.81 Patient returns on February 08, 2024. She has had difficulty sleeping for most of her life. She has tried multiple medication s without relief. She is tried Mirtazapin e and lorazepam without improvemen t of insomnia. Discussed trying trazodone instead. Prescripti on sent for Requip for restless legs. [id number] Hanna Fournier PA-C [facility] [address] [place] [address] 04/04/2024 09:54:49 04/04/2024 10:42:05 Malignant tumor of ascending colon 203579249 C18.2 CT scan of the abdomen and [...] 8.2 hematocrit 29.0. MCV 67.9. Platelet count 782626. Normal cell differenti al. Low serum folate [...] current therapy. Metastatic malignant neoplasm to liver 81534708 C78.7 CT scan of the abdomen and [...] Findings concerning for metastatic colon cancer. Nausea 775446190 R11.0 As needed Zofran and Phenergan prescribed . Pain due t o neoplastic disease 7547277030 9102 G89.3 Right upper quadrant pain secondary to liver metastasis . Patient currently taking Tylenol. Discussed as needed oxycodone to limit Tylenol exposure. Anemia 962877822 D64.9 Right-side d colon mass concerning for malignancy . Will assess for any signs of iron deficiency . Most recent hemoglobin at 8.0. Concern for blood loss from colon mass. Patient reports dark stools. Adopted [id number] Z62.89 8 Patient is adopted and discussed hereditary gene panel. Patient does have family history of her son having bladder cancer. Will send [facility] hereditary panel. Antineopla stic chemotherapy regimen [id number] Z51.11 Week 1 5FU Leucovorin Vectibix on [...] without Vectibix on April 04, 2024. Hypokalemia 20511919 E87 .6 Patient returns on April 29, 2023. Potassium is low at 2.9. Will send prescripti on for potassium 20 mEq daily. Will follow-up labs again next week. Deep venou s thrombosis 347936632 I82.409 Patient developed right lower extremity pain and edema.Veno us duplex on May 28, 2023 with evidence of deep vein thrombosis . Started on Eliquis 5 mg 1 tab p.o. b.i.d.. Did not start with Eliquis starter pack due to recent bleeding. Patient had a DVT and a PE in 1990 after her hysterecto my. Mixed anxi ety and depressive disorder 770487387 F41.8 Patient returns on November 23, 2023. [...] prescripti on for Cymbalta. Atopic conjunctivitis 23 8602055 H10.12 Patient with conjunctiv itis of the left eye. Held Vectibix on December 07, 2023. Continue with current therapy. Will follow up again in 2 weeks. Iron defic iency anemia 68860811 D50.9 Will follow up labs Insomnia 168706911 G47.0 0 Patient returns on February 08, 2024. She has had difficulty sleeping for most of her life. She has tried multiple medication s without relief. She is tried Mirtazapin e and lorazepam without improvemen t of insomnia. Discussed trying trazodone instead. Will send prescripti on. Will send prescripti on for Requip for restless legs. Restless legs 85029573 G 25.81 Patient returns on February 08, [...] also send prescripti on for fluconazol e. [id number] Hanna Fournier PA-C [facility] [address] [place] [address] 04/18/2024 09:51:34 04/18/2024 11:21:47 Malignant tumor of ascending colon 794856108 C18.2 CT scan of the abdomen and [...] 8.2 hematocrit 29.0. MCV 67.9. Platelet count 039263. Normal cell differenti al. Low serum folate [...] current therapy. Metastatic malignant neoplasm to liver 74640161 C78.7 CT scan of the abdomen and [...] Findings concerning for metastatic colon cancer. Nausea 043743934 R11.0 As needed Zofran and Phenergan prescribed . Pain due t o neoplastic disease [id number] 9102 G89.3 Right upper quadrant pain secondary to liver metastasis . Patient currently taking Tylenol. Discussed as needed oxycodone to limit Tylenol exposure. Anemia 410788614 D64.9 Right-side d colon mass concerning for malignancy . Will assess for any signs of iron deficiency . Most recent hemoglobin at 8.0. Concern for blood loss from colon mass. Patient reports dark stools. Adopted [id number] Z62.89 8 Patient is adopted and discussed hereditary gene panel. Patient does have family history of her son having bladder cancer. Will send [facility] hereditary panel. Antineopla stic chemotherapy regimen 104447930 Z51.11 Week 1 5FU Leucovorin Vectibix on [...] without Vectibix on April 18, 2024. Hypokalemia 46973366 E87 .6 Patient returns on April 29, 2023. Potassium is low at 2.9. Will send prescripti on for potassium 20 mEq daily. Will follow-up labs again next week. Deep venou s thrombosis 238568359 I82.409 Patient developed right lower extremity pain and edema.Veno us duplex on May 28, 2023 with evidence of deep vein thrombosis . Started on Eliquis 5 mg 1 tab p.o. b.i.d.. Did not start with Eliquis starter pack due to recent bleeding. Patient had a DVT and a PE in 1990 after her hysterecto my. Mixed anxi ety and depressive disorder 774626684 F41.8 Patient returns on November 23, 2023. [...] prescripti on for Cymbalta. Atopic conjunctivitis 23 2720991 H10.12 Patient with conjunctiv itis of the left eye. Held Vectibix on December 07, 2023. Continue with current therapy. Will follow up again in 2 weeks. Iron defic iency anemia 80791410 D50.9 Will follow up labs Insomnia 372137735 G47.0 0 Patient returns on February 08, 2024. She has had difficulty sleeping for most of her life. She has tried multiple medication s without relief. She is tried Mirtazapin e and lorazepam without improvemen t of insomnia. Discussed trying trazodone instead. Will send prescripti on. Will send prescripti on for Requip for restless legs. Restless legs 04565547 G 25.81 Patient returns on February 08, [...] also send prescripti on for fluconazol e. [id number] Hanna Fournier PA-C [facility] [address] [place] [address] 05/02/2024 09:52:10 05/02/2024 10:44:11 Malignant tumor of ascending colon 055834019 C18.2 CT scan of the abdomen and [...] 8.2 hematocrit 29.0. MCV 67.9. Platelet count 124604. Normal cell differenti al. Low serum folate [...] current therapy. Metastatic malignant neoplasm to liver 83443739 C78.7 CT scan of the abdomen and [...] Findings concerning for metastatic colon cancer. Nausea 651829441 R11.0 As needed Zofran and Phenergan prescribed . Pain due t o neoplastic disease 5768237902 9102 G89.3 Right upper quadrant pain secondary to liver metastasis . Patient currently taking Tylenol. Discussed as needed oxycodone to limit Tylenol exposure. Anemia 297229537 D64.9 Right-side d colon mass concerning for malignancy . Will assess for any signs of iron deficiency . Most recent hemoglobin at 8.0. Concern for blood loss from colon mass. Patient reports dark stools. Adopted 964498195 Z62.89 8 Patient is adopted and discussed hereditary gene panel. Patient does have family history of her son having bladder cancer. Will send [facility] hereditary panel. Antineopla stic chemotherapy regimen 389041018 Z51.11 Week 1 5FU Leucovorin Vectibix on [...] without Vectibix on May 02, 2024. Hypokalemia 84221458 E87 .6 Patient returns on April 29, 2023. Potassium is low at 2.9. Will send prescripti on for potassium 20 mEq daily. Will follow-up labs again next week. Deep venou s thrombosis 539615928 I82.409 Patient developed right lower extremity pain and edema.Veno us duplex on May 28, 2023 with evidence of deep vein thrombosis . Started on Eliquis 5 mg 1 tab p.o. b.i.d.. Did not start with Eliquis starter pack due to recent bleeding. Patient had a DVT and a PE in 1990 after her hysterecto my. Mixed anxi ety and depressive disorder 115711230 F41.8 Patient returns on November 23, 2023. [...] prescripti on for Cymbalta. Atopic conjunctivitis 23 9781726 H10.12 Patient with conjunctiv itis of the left eye. Held Vectibix on December 07, 2023. Continue with current therapy. Will follow up again in 2 weeks. Iron defic iency anemia 79524324 D50.9 Will follow up labs Insomnia 285004599 G47.0 0 Patient returns on February 08, 2024. She has had difficulty sleeping for most of her life. She has tried multiple medication s without relief. She is tried Mirtazapin e and lorazepam without improvemen t of insomnia. Discussed trying trazodone instead. Will send prescripti on. Will send prescripti on for Requip for restless legs. Restless legs 66210279 G 25.81 Patient returns on February 08, [...] and took Diflucan tablet. Rash has resolved. [id number] Tomy King MD [facility] [address] [place] [address] 05/16/2024 10:11:10 05/16/2024 10:33:39 Malignant tumor of ascending colon 911970109 C18.2 CT scan of the abdomen and [...] 8.2 hematocrit 29.0. MCV 67.9. Platelet count 748221. Normal cell differenti al. Low serum folate [...] 16, 2024. Metastatic malignant neoplasm to liver 02784701 C78.7 CT scan of the abdomen and [...] Findings concerning for metastatic colon cancer. Nausea 580091331 R11.0 As needed Zofran and Phenergan prescribed . Pain due t o neoplastic disease 8264274071 9102 G89.3 Right upper quadrant pain secondary to liver metastasis . Patient currently taking Tylenol. Discussed as needed oxycodone to limit Tylenol exposure. Anemia 948742657 D64.9 Right-side d colon mass concerning for malignancy . Will assess for any signs of iron deficiency . Most recent hemoglobin at 8.0. Concern for blood loss from colon mass. Patient reports dark stools. Adopted 848191372 Z62.89 8 Patient is adopted and discussed hereditary gene panel. Patient does have family history of her son having bladder cancer. Will send [facility] hereditary panel. Antineopla stic chemotherapy regimen 993823659 Z51.11 Week 1 5FU Leucovorin Vectibix on [...] on May 16, 2024. Vectibix resumed. Hypokalemia 28120450 E87 .6 Patient returns on April 29, 2023. Potassium is low at 2.9. Will send prescripti on for potassium 20 mEq daily. Will follow-up labs again next week. Deep venou s thrombosis 264382268 I82.409 Patient developed right lower extremity pain [...] duplex. Mixed anxi ety and depressive disorder 182559986 F41.8 Patient returns on November 23, 2023. [...] prescripti on for Cymbalta. Atopic conjunctivitis 23 1562473 H10.12 Patient with conjunctiv itis of the left eye. Held Vectibix on December 07, 2023. Continue with current therapy. Will follow up again in 2 weeks. Iron defic iency anemia 78288209 D50.9 Will follow up labs Insomnia 251202360 G47.0 0 Patient returns on February 08, 2024. She has had difficulty sleeping for most of her life. She has tried multiple medication s without relief. She is tried Mirtazapin e and lorazepam without improvemen t of insomnia. Discussed trying trazodone instead. Will send prescripti on. Will send prescripti on for Requip for restless legs. Restless legs 21359164 G 25.81 Patient returns on February 08, 2024. She has had difficulty sleeping for most of her life. She has tried multiple medication s without relief. She is tried Mirtazapin e and lorazepam without improvemen t of insomnia. Discussed trying trazodone instead. Prescripti on sent for Requip for restless legs. [id number] Hanna Fournier PA-C [facility] [address] [place] [address] 05/30/2024 09:21:34 05/30/2024 11:05:52 Malignant tumor of ascending colon 436818017 C18.2 CT scan of the abdomen and [...] 8.2 hematocrit 29.0. MCV 67.9. Platelet count 782104. Normal cell differenti al. Low serum folate [...] up labs. Metastatic malignant neoplasm to liver 83476914 C78.7 CT scan of the abdomen and [...] Findings concerning for metastatic colon cancer. Nausea 771090297 R11.0 As needed Zofran and Phenergan prescribed . Patient returns on May 30, 2024. Patient has had intermitte nt nausea that occurs randomly. Will try scopolamin e patches. Pain due t o neoplastic disease 3929496588 9102 G89.3 Right upper quadrant pain secondary to liver metastasis . Patient currently taking Tylenol. Discussed as needed oxycodone to limit Tylenol exposure. Anemia 290150486 D64.9 Right-side d colon mass concerning for malignancy . Will assess for any signs of iron deficiency . Most recent hemoglobin at 8.0. Concern for blood loss from colon mass. Patient reports dark stools. Adopted 212138496 Z62.89 8 Patient is adopted and discussed hereditary gene panel. Patient does have family history of her son having bladder cancer. Will send [facility] hereditary panel. Antineopla stic chemotherapy regimen 495326912 Z51.11 Week 1 5FU Leucovorin Vectibix on [...] 2024. Patient will receive Vectibix today. Hypokalemia 19298700 E87 .6 Patient returns on April 29, 2023. Potassium is low at 2.9. Will send prescripti on for potassium 20 mEq daily. Will follow-up labs again next week. Deep venou s thrombosis 769357764 I82.409 Patient developed right lower extremity pain [...] duplex. Mixed anxi ety and depressive disorder 033026800 F41.8 Patient returns on November 23, 2023. [...] prescripti on for Cymbalta. Atopic conjunctivitis 23 1436148 H10.12 Patient with conjunctiv itis of the left eye. Held Vectibix on December 07, 2023. Continue with current therapy. Will follow up again in 2 weeks. Iron defic iency anemia 92470016 D50.9 Will follow up labs Insomnia 301522028 G47.0 0 Patient returns on February 08, 2024. She has had difficulty sleeping for most of her life. She has tried multiple medication s without relief. She is tried Mirtazapin e and lorazepam without improvemen t of insomnia. Discussed trying trazodone instead. Will send prescripti on. Will send prescripti on for Requip for restless legs. Restless legs 07814165 G 25.81 Patient returns on February 08, [...] the area dry. Will follow-up. Generalized rash 3836719 06 R21 Patient returns on May 30, [...] to keep the area dry. Will follow-up. [id number] Hanna Fournier PA-C [facility] [address] [facility] [address] [place] [address] 06/27/2024 09:58:37 06/27/2024 10:53:58 Malignant tumor of ascending colon 234205007 C18.2 CT scan of the abdomen and [...] 8.2 hematocrit 29.0. MCV 67.9. Platelet count 189298. Normal cell differenti al. Low serum folate [...] is following with the Coumadin clinic at [facility]. She is scheduled for cardiac MRI. [...] up labs. Metastatic malignant neoplasm to liver 72906964 C78.7 CT scan of the abdomen and [...] Findings concerning for metastatic colon cancer. Nausea 822378848 R11.0 As needed Zofran and Phenergan prescribed . Discussed trying scopolamin e patches but her insurance wouldn't cover. Pain due t o neoplastic disease 5393777480 9102 G89.3 Right upper quadrant pain secondary to liver metastasis . Patient currently taking Tylenol. Discussed as needed oxycodone to limit Tylenol exposure. Anemia 709786453 D64.9 Right-side d colon mass concerning for malignancy . Will assess for any signs of iron deficiency . Most recent hemoglobin at 8.0. Concern for blood loss from colon mass. Patient reports dark stools. Adopted 401989955 Z62.89 8 Patient is adopted and discussed hereditary gene panel. Patient does have family history of her son having bladder cancer. Will send [facility] hereditary panel. Antineopla stic chemotherapy regimen 596141584 Z51.11 Week 1 5FU Leucovorin Vectibix on [...] Patient will receive not Vectibix today. Hypokalemia 19206802 E87 .6 Patient returns on April 29, 2023. Potassium is low at 2.9. Will send prescripti on for potassium 20 mEq daily. Will follow-up labs again next week. Deep venou s thrombosis 773496886 I82.409 Patient developed right lower extremity pain [...] duplex. Mixed anxi ety and depressive disorder 506015911 F41.8 Patient returns on November 23, 2023. [...] prescripti on for Cymbalta. Atopic conjunctivitis 23 5040914 H10.12 Patient with conjunctiv itis of the left eye. Held Vectibix on December 07, 2023. Continue with current therapy. Will follow up again in 2 weeks. Iron defic iency anemia 16043618 D50.9 Will follow up labs Insomnia 142236906 G47.0 0 Patient returns on February 08, 2024. She has had difficulty sleeping for most of her life. She has tried multiple medication s without relief. She is tried Mirtazapin e and lorazepam without improvemen t of insomnia. Discussed trying trazodone instead. Will send prescripti on. Will send prescripti on for Requip for restless legs. Restless legs 22688981 G 25.81 Patient returns on February 08, [...] patient has not received Vectibix. Generalized rash 2945613 06 R21 Patient returns on May 30, [...] is following with the Coumadin clinic at [facility]. Congestive heart failure 16895003 I50.9 Patient returns on June 27, 2024. Since previous visit patient has been diagnosed with congestive heart failure and atrial fibrillati on. She has started lasix and is following with a cardiologi st. [id number] Hanna Fournier PA-C [facility] [address] [place] [address] 07/11/2024 09:55:48 07/11/2024 10:53:23 Malignant tumor of ascending colon 181540586 C18.2 CT scan of the abdomen and [...] 8.2 hematocrit 29.0. MCV 67.9. Platelet count 369606. Normal cell differenti al. Low serum folate [...] up labs. Metastatic malignant neoplasm to liver 10513408 C78.7 CT scan of the abdomen and [...] Findings concerning for metastatic colon cancer. Nausea 095655475 R11.0 As needed Zofran and Phenergan prescribed . Discussed trying scopolamin e patches but her insurance wouldn't cover. She is taking Zofran with relief. Pain due t o neoplastic disease 2937604350 9102 G89.3 She is taking hydrocodon e 7.5 mg b.i.d. Discussed taking medication every 4-6 hours as needed. Anemia 228801369 D64.9 Right-side d colon mass concerning for malignancy . Will assess for any signs of iron deficiency . Most recent hemoglobin at 8.0. Concern for blood loss from colon mass. Patient reports dark stools. Adopted 117675217 Z62.89 8 Patient is adopted and discussed hereditary gene panel. Patient does have family history of her son having bladder cancer. Will send [facility] hereditary panel. Antineopla stic chemotherapy regimen 662300363 Z51.11 Week 1 5FU Leucovorin Vectibix on [...] 2024. Patient will receive Vectibix today. Hypokalemia 67893746 E87 .6 Patient returns on April 29, 2023. Potassium is low at 2.9. Will send prescripti on for potassium 20 mEq daily. Will follow-up labs again next week. Deep venou s thrombosis 434944728 I82.409 Patient developed right lower extremity pain [...] duplex. Mixed anxi ety and depressive disorder 168076508 F41.8 Patient returns on November 23, 2023. [...] prescripti on for Cymbalta. Atopic conjunctivitis 23 4805486 H10.12 Patient with conjunctiv itis of the left eye. Held Vectibix on December 07, 2023. Continue with current therapy. Will follow up again in 2 weeks. Iron defic iency anemia 75301204 D50.9 Will follow up labs Insomnia 592868095 G47.0 0 Patient returns on February 08, 2024. She has had difficulty sleeping for most of her life. She has tried multiple medication s without relief. She is tried Mirtazapin e and lorazepam without improvemen t of insomnia. Discussed trying trazodone instead. Will send prescripti on. Will send prescripti on for Requip for restless legs. Restless legs 31740406 G 25.81 Patient returns on February 08, [...] patient has not received Vectibix. Generalized rash 8674078 06 R21 Patient returns on May 30, [...] is following with the Coumadin clinic at [facility]. Congestive heart failure 33366979 I50.9 Patient returns on June 27, 2024. Since previous visit patient has been diagnosed with congestive heart failure and atrial fibrillati on. She has started lasix and is following with a cardiologi [facility] [id number] Jana España MD [facility] [address] [facility] [address] [place] [address] 07/06/2024 10:53:43 07/08/2024 03:53:47 Seen by palliative care service 195682829 Z51.5 Introduced services today. Dtr and son would be NOK - she feels important to start thinking about completion of LW/AD- I provided copies today and [facility] and will plan to f/u on this is two weeks. Encouraged her to think about HCS/code status. Still wants to continue chemo and has scans next week - did not discuss hospice, but eligible at any point Pain due t o neoplastic disease 1379687444 9102 G89.3 Uncontroll ed, had lortab prescribed which manages pain well when she takes medication . Encouraged adherence. 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 Not taking cymbalta. Encouraged adherence and PRN ativan for breakthrou gh syptoms. Did not wish to pursue CBt at this time, will d/w Elsa for additional support options moving forward Nausea and vomiting 1693 2000 R11.2 Related to malignancy vs. Chemo. Improved with PRN and qAM zofran, likely related to chemo vs. malignancy Loss of appetite 0139592 6 R63.0 Related to malignancy . Not taking mirtazapin e. Does not want to add additional Rx at this itme or see nutritioni st. [id number] Hanna Fournier PA-C [facility] [address] [facility] [address] [place] [address] 07/25/2024 10:19:02 07/25/2024 10:39:35 Malignant tumor of ascending colon 349463094 C18.2 CT scan of the abdomen and [...] 8.2 hematocrit 29.0. MCV 67.9. Platelet count 721551. Normal cell differenti al. Low serum folate [...] Vectibix today. Metastatic malignant neoplasm to liver 55642459 C78.7 CT scan of the abdomen and [...] Findings concerning for metastatic colon cancer. Nausea 968515219 R11.0 As needed Zofran and Phenergan prescribed . Discussed trying scopolamin e patches but her insurance wouldn't cover. She is taking Zofran with relief. Pain due t o neoplastic disease 5463658005 9102 G89.3 She is taking hydrocodon e 7.5 mg b.i.d. Discussed taking medication every 4-6 hours as needed. Anemia 348188573 D64.9 Right-side d colon mass concerning for malignancy . Will assess for any signs of iron deficiency . Hemoglobin previously 8.0. Concern for blood loss from colon mass. Patient reports dark stools. labs on July 25, 2024 with improvemen t of hemoglobin 12.6. Patient is currently receiving infusional iron. Adopted 804157893 Z62.89 8 Patient is adopted and discussed hereditary gene panel. Patient does have family history of her son having bladder cancer. Will send [facility] hereditary panel. Antineopla stic chemotherapy regimen 273528171 Z51.11 Week 1 5FU Leucovorin Vectibix on [...] Patient will not receive Vectibix today. Hypokalemia 00327599 E87 .6 Patient returns on April 29, 2023. Potassium is low at 2.9. Will send prescripti on for potassium 20 mEq daily. Will follow-up labs again next week. Deep venou s thrombosis 183040892 I82.409 Patient developed right lower extremity pain [...] duplex. Mixed anxi ety and depressive disorder 500479563 F41.8 Patient returns on November 23, 2023. [...] reports depression has improved. Atopic conjunctivitis 23 7842606 H10.12 Patient with conjunctiv itis of the left eye. Held Vectibix on December 07, 2023. Continue with current therapy. Will follow up again in 2 weeks. Patient returns on July 25, 2024. She does have conjunctiv itis of the left eye. Will hold Vectibix today. Will follow up. Iron defic iency anemia 92164046 D50.9 Currently receiving infusional iron. Will continue to monitor. Insomnia 605296012 G47.0 0 Patient returns on February 08, 2024. She has had difficulty sleeping for most of her life. She has tried multiple medication s without relief. She is tried Mirtazapin e and lorazepam without improvemen t of insomnia. Discussed trying trazodone instead. Will send prescripti on. Will send prescripti on for Requip for restless legs. Restless legs 07020657 G 25.81 Patient returns on February 08, [...] with diflucan and nystain powder. Generalized rash 6862622 06 R21 Patient returns on May 30, [...] is following with the Coumadin clinic at [facility]. Congestive heart failure 61279733 I50.9 Patient returns on June 27, 2024. Since previous visit patient has been diagnosed with congestive heart failure and atrial fibrillati on. She has started lasix and is following with a cardiologi . Cachexia 573069258 R64 Patient returns on July 25, 2024. Patient has had decreased appetite. Continues to lose weight. She has lost 4 more lbs since previous visit. She is drinking nutritiona l supplement s. Discussed appetite stimulant. Patient previously refused. Now she is agreeable to try Megace. Will send prescripti on. Will follow up for angela oakley [id number] Tomy King MD [facility] [address] [place] [address] 08/01/2024 11:10:37 08/01/2024 12:30:43 Malignant tumor of ascending colon 849736927 C18.2 CT scan of the abdomen and [...] 8.2 hematocrit 29.0. MCV 67.9. Platelet count 170203. Normal cell differenti al. Low serum folate [...] study published in September 2022 in the [employer] of combined Avastin therapy with [...] Will follow-up Metastatic malignant neoplasm to liver 70529744 C78.7 CT scan of the abdomen and [...] Findings concerning for metastatic colon cancer. Nausea 048769724 R11.0 As needed Zofran and Phenergan prescribed . Discussed trying scopolamin e patches but her insurance wouldn't cover. She is taking Zofran with relief. Pain due t o neoplastic disease [id number] 9102 G89.3 She is taking hydrocodon e 7.5 mg b.i.d. Discussed taking medication every 4-6 hours as needed. Anemia 741768927 D64.9 Right-side d colon mass concerning for malignancy . Will assess for any signs of iron deficiency . Hemoglobin previously 8.0. Concern for blood loss from colon mass. Patient reports dark stools. labs on July 25, 2024 with improvemen t of hemoglobin 12.6. Patient is currently receiving infusional iron. Adopted [id number] Z62.89 8 Patient is adopted and discussed hereditary gene panel. Patient does have family history of her son having bladder cancer. Will send [facility] hereditary panel. Antineopla stic chemotherapy regimen [id number] Z51.11 Week 1 5FU Leucovorin Vectibix on [...] 2024 due to disease progressio n. Hypokalemia 59961675 E87 .6 Patient returns on April 29, 2023. Potassium is low at 2.9. Will send prescripti on for potassium 20 mEq daily. Will follow-up labs again next week. Deep venou s thrombosis 408633889 I82.409 Patient developed right lower extremity pain [...] duplex. Mixed anxi ety and depressive disorder 383674376 F41.8 Patient returns on November 23, 2023. [...] reports depression has improved. Atopic conjunctivitis 23 8317103 H10.12 Patient with conjunctiv itis of the left eye. Held Vectibix on December 07, 2023. Continue with current therapy. Will follow up again in 2 weeks. Patient returns on July 25, 2024. She does have conjunctiv itis of the left eye. Will hold Vectibix today. Will follow up. Iron defic iency anemia 16728242 D50.9 Currently receiving infusional iron. Will continue to monitor. Insomnia 204809513 G47.0 0 Patient returns on February 08, 2024. She has had difficulty sleeping for most of her life. She has tried multiple medication s without relief. She is tried Mirtazapin e and lorazepam without improvemen t of insomnia. Discussed trying trazodone instead. Will send prescripti on. Will send prescripti on for Requip for restless legs. Restless legs 34976302 G 25.81 Patient returns on February 08, [...] with diflucan and nystain powder. Generalized rash 6375937 06 R21 Patient returns on May 30, [...] is following with the Coumadin clinic at [facility]. Congestive heart failure 90714002 I50.9 Patient returns on June 27, 2024. Since previous visit patient has been diagnosed with congestive heart failure and atrial fibrillati on. She has started lasix and is following with a cardiologi . Cachexia 261455169 R64 Patient returns on July 25, 2024. Patient has had decreased appetite. Continues to lose weight. She has lost 4 more lbs since previous visit. She is drinking nutritiona l supplement s. Discussed appetite stimulant. Patient previously refused. Now she is agreeable to try Megace. Will send prescripti on. Will follow up for angela oakley [id number] Hanna Fournier PA-C [facility] [address] [place] [address] 08/10/2024 09:37:37 08/10/2024 10:29:37 Malignant tumor of ascending colon 009282819 C18.2 CT scan of the abdomen and [...] 8.2 hematocrit 29.0. MCV 67.9. Platelet count 830894. Normal cell differenti al. Low serum folate [...] study published in September 2022 in the [employer] [facility] of combined Avastin therapy with [...] liver lesions. Metastatic malignant neoplasm to liver 09735824 C78.7 CT scan of the abdomen and [...] patient is a candidate for radiation Nausea 325502889 R11.0 As needed Zofran and Phenergan prescribed . Discussed trying scopolamin e patches but her insurance wouldn't cover. She is taking Zofran with relief. Pain due t o neoplastic disease [id number] 9102 G89.3 She is taking hydrocodon e 7.5 mg b.i.d. Discussed taking medication every 4-6 hours as needed. Anemia 781011390 D64.9 Right-side d colon mass concerning for malignancy . Will assess for any signs of iron deficiency . Hemoglobin previously 8.0. Concern for blood loss from colon mass. Patient reports dark stools. Labs on August 10, 2024 with hemoglobin slightly low at 11.9. She is receiving infusional iron as needed. Adopted 330458423 Z62.89 8 Patient is adopted and discussed hereditary gene panel. Patient does have family history of her son having bladder cancer. [facility] hereditary panel sent Antineopla stic chemotherapy regimen 767124746 Z51.11 Week 1 5FU Leucovorin Vectibix on [...] monitor for tolerabili ty and toxicity. Hypokalemia 05653439 E87 .6 Currently taking for potassium 20 mEq daily. Will follow up labs. Mixed anxi ety and depressive disorder 830967236 F41.8 Patient returns on November 23, 2023. [...] reports depression has improved. Atopic conjunctivitis 23 9185515 H10.12 Conjunctiv itis due to Vectibix. This is improving. Iron defic iency anemia 07826342 D50.9 Currently receiving infusional iron as needed. Will continue to monitor. Insomnia 633386085 G47.0 0 Patient has had difficulty sleeping for most of her life. She has tried multiple medication s without relief. She is tried Mirtazapin e and lorazepam without improvemen t of insomnia. Discussed trying trazodone instead. Restless legs 48448348 G 25.81 Patient taking Requip for restless legs. Generalized rash 5519102 06 R21 Patient with rash due to Vectibix. This is improving. Atrial fibrillation 4943 6004 I48.91 Patient has been diagnosed with congestive heart failure and atrial fibrillati on. She has been started on Coumadin. She is following with the Coumadin clinic at [facility]. Congestive heart failure 41611736 I50.9 Patient has been diagnosed with congestive heart failure. She has started lasix and is following with a cardiologi st. Cachexia 192087472 R64 Patient has had decreased appetite and weight loss. She is drinking nutritiona l supplement s. Discussed appetite stimulant. Patient previously refused. She has started on Megace. Will continue to monitor History of deep vein thrombosis 929687890 Z86.718 Patient developed right lower extremity pain [...] repeat venous duplex. Drug therapy finding 309 615263 Z79.01 She continues on Coumadin due to a fib. She is following with the Coumadin clinic at [facility]. [id number] Hanna Fournier PA-C [facility] [address] [place] [address] 08/25/2024 09:02:23 08/25/2024 09:51:52 Antineoplastic chemotherapy regimen 590197442 Z51.11 Week 1 5FU Leucovorin Vectibix on [...] and toxicity. Malignant tumor of ascending colon 321190722 C18.2 CT scan of the abdomen and [...] 8.2 hematocrit 29.0. MCV 67.9. Platelet count 486007. Normal cell differenti al. Low serum folate [...] study published in September 2022 in the [facility] of combined Avastin therapy with [...] liver lesions. Metastatic malignant neoplasm to liver 80408368 C78.7 CT scan of the abdomen and [...] patient is a candidate for radiation Nausea 076532512 R11.0 As needed Zofran and Phenergan prescribed . Discussed trying scopolamin e patches but her insurance wouldn't cover. She is taking Zofran with relief. Pain due t o neoplastic disease 2506437588 9102 G89.3 She is taking hydrocodon e [...] does take her current medication s Anemia 026716269 D64.9 Right-side d colon mass concerning for malignancy . Will assess for any signs of iron deficiency . Hemoglobin previously 8.0. Concern for blood loss from colon mass. Patient reports dark stools. Labs on August 10, 2024 with hemoglobin slightly low at 11.9. She is receiving infusional iron as needed. Adopted 807135927 Z62.89 8 Patient is adopted and discussed hereditary gene panel. Patient does have family history of her son having bladder cancer. [facility] hereditary panel sent Hypokalemia 16201015 E87 .6 Currently taking for potassium 20 mEq daily. Will follow up labs. Mixed anxi ety and depressive disorder 533256782 F41.8 Patient returns on November 23, 2023. [...] reports depression has improved. Atopic conjunctivitis 23 7432430 H10.12 Conjunctiv itis due to Vectibix. This is improving. Iron defic iency anemia 45349610 D50.9 Receiving infusional iron as needed. Will continue to monitor. Insomnia 506007469 G47.0 0 Patient has had difficulty sleeping for most of her life. She has tried multiple medication s without relief. She is tried Mirtazapin e and lorazepam without improvemen t of insomnia. Discussed trying trazodone instead. Restless legs 95320865 G 25.81 Patient taking Requip for restless legs. Generalized rash 9152907 06 R21 Rash due to Vectibix. This has improved. Atrial fibrillation 4943 6004 I48.91 Patient has been diagnosed with congestive heart failure and atrial fibrillati on. She has been started on Coumadin. She is following with the Coumadin clinic at [facility]. Congestive heart failure 87127624 I50.9 Patient has been diagnosed with congestive heart failure. She has started lasix and is following with a cardiologi st. Cachexia 170460567 R64 Patient has had decreased appetite and weight loss. She is drinking nutritiona l supplement s. Discussed appetite stimulant. Patient previously refused. She has started on Megace. She does not like the taste of Megace. Discussed Megace tablets instead of liquid but patient declines at this time. Will continue to monitor History of deep vein thrombosis 189467138 Z86.718 Patient developed right lower extremity pain [...] repeat venous duplex. Drug therapy finding 309 101217 Z79.01 She continues on Coumadin due to a fib. She is following with the Coumadin clinic at [facility]. Acute post traumatic headache 2286874061 67131 G44.319 Patient returns on August 25, 2024. [...] Internatio nal normalized ratio above reference range 102022165 R79.1 Patient returns on August 25, 2024. She is on Coumadin for atrial fibrillati on and her INR is elevated. She is going to the Coumadin Clinic for management . INR 8 today. She is going to hold Coumadin and contact Coumadin Clinic for directions today. Denies any bleeding at this time. [id number] Hanna Fournier PA-C [facility] [address] [address] [address] [place] [address] 09/02/2024 11:29:36 09/02/2024 12:07:33 Antineoplastic chemotherapy regimen 954279985 Z51.11 Week 1 5FU Leucovorin Vectibix on [...] follow up. Malignant tumor of ascending colon 412177721 C18.2 CT scan of the abdomen and [...] 8.2 hematocrit 29.0. MCV 67.9. Platelet count 173559. Normal cell differenti al. Low serum folate [...] study published in September 2022 in the [facility] of combined Avastin therapy with [...] liver lesions. Metastatic malignant neoplasm to liver 44403603 C78.7 CT scan of the abdomen and [...] patient is a candidate for radiation Nausea 347248954 R11.0 As needed Zofran and Phenergan prescribed [...] ons. Pain due t o neoplastic disease 1103218835 9102 G89.3 She is taking hydrocodon e [...] tab po every 3-4 hours instead. Anemia 045861028 D64.9 Right-side d colon mass concerning for malignancy . Will assess for any signs of iron deficiency . Hemoglobin previously 8.0. Concern for blood loss from colon mass. Patient reports dark stools. Labs on August 10, 2024 with hemoglobin slightly low at 11.9. She is receiving infusional iron as needed. Adopted 534586278 Z62.89 8 Patient is adopted and discussed hereditary gene panel. Patient does have family history of her son having bladder cancer. [facility] hereditary panel sent Hypokalemia 94077731 E87 .6 Currently taking for potassium 20 mEq daily. Will follow up labs. Mixed anxi ety and depressive disorder 595130590 F41.8 Patient returns on November 23, 2023. [...] reports depression has improved. Atopic conjunctivitis 23 5763013 H10.12 Conjunctiv itis due to Vectibix. This is improving. Iron defic iency anemia 12276558 D50.9 Receiving infusional iron as needed. Will continue to monitor. Insomnia 194419879 G47.0 0 Patient has had difficulty sleeping for most of her life. She has tried multiple medication s without relief. She is tried Mirtazapin e and lorazepam without improvemen t of insomnia. Discussed trying trazodone instead. Restless legs 78458271 G 25.81 Patient taking Requip for restless legs. Generalized rash 7740774 06 R21 Rash due to Vectibix. This has improved. Atrial fibrillation 4943 6004 I48.91 Patient has been diagnosed with congestive heart failure and atrial fibrillati on. She has been started on Coumadin. She is following with the Coumadin clinic at [facility]. Congestive heart failure 98048561 I50.9 Patient has been diagnosed with congestive heart failure. She has started lasix and is following with a cardiologi . Cachexia 162015288 R64 Patient has had decreased appetite and weight loss. She is drinking nutritiona l supplement s. Discussed appetite stimulant. Patient previously refused. She has started on Megace. She does not like the taste of Megace. Discussed Megace tablets instead of liquid but patient declines at this time. Will continue to monitor History of deep vein thrombosis 568844174 Z86.718 Patient developed right lower extremity pain [...] repeat venous duplex. Drug therapy finding 309 623490 Z79.01 She continues on Coumadin due to a fib. She is following with the Coumadin clinic at [facility]. Internatio nal normalized ratio above reference range 610027254 R79.1 Patient returns on August 25, 2024. She is on Coumadin for atrial fibrillati on and her INR is elevated. She is going to the Coumadin Clinic for management . INR 8 today. She is going to hold Coumadin and contact Coumadin Clinic for directions today. Denies any bleeding at this time. Diarrhea 37852062 R19.7 Patient with increased diarrhea, nausea, and vomiting for the past 4 days. She is taking Imodium and Lomotil without relief. She has a history of C diff. Will order stool studies today. Will check stool for C diff today. Dehydration 85578558 E86 .0 Patient returns on September 02, 2024. Patient with increased diarrhea, nausea, and vomiting for the past 4 days. No fever or chills. IV fluids along with Pepcid and Zofran today for dehydratio n. [id number] Hanna Fournier PA-C [facility] [address] [place] [address] 11/01/2024 13:00:10 11/01/2024 13:35:08 Antineoplastic chemotherapy regimen 368577064 Z51.11 Week 1 5FU Leucovorin Vectibix on [...] 25, 2024. Malignant tumor of ascending colon 833695252 C18.2 CT scan of the abdomen and [...] 8.2 hematocrit 29.0. MCV 67.9. Platelet count 032189. Normal cell differenti al. Low serum folate [...] study published in September 2022 in the [facility] of combined Avastin therapy with [...] malignancy . Metastatic malignant neoplasm to liver 85544677 C78.7 CT scan of the abdomen and [...] any treatment for her malignancy . Nausea 124951972 R11.0 As needed Zofran and Phenergan prescribed [...] ons. Pain due t o neoplastic disease 7280397387 9102 G89.3 Abdominal pain has improved and pain is controlled with current pain medication s. Anemia 271705600 D64.9 Right-side d colon mass concerning for malignancy . Will assess for any signs of iron deficiency . Hemoglobin previously 8.0. Concern for blood loss from colon mass. Patient reports dark stools. Labs on August 10, 2024 with hemoglobin slightly low at 11.9. She is receiving infusional iron as needed. Adopted 818947990 Z62.89 8 Patient is adopted and discussed hereditary gene panel. Patient does have family history of her son having bladder cancer. [facility] hereditary panel sent Hypokalemia 26427633 E87 .6 Currently taking for potassium 20 mEq daily. Will follow up labs. Mixed anxi ety and depressive disorder 798133217 F41.8 Patient returns on November 23, 2023. [...] reports depression has improved. Atopic conjunctivitis 23 2959220 H10.12 Conjunctiv itis due to Vectibix. This has improved. Iron defic iency anemia 25438669 D50.9 Receiving infusional iron as needed. Will continue to monitor. Insomnia 124198005 G47.0 0 Patient has had difficulty sleeping for most of her life. She has tried multiple medication s without relief. She is tried Mirtazapin e and lorazepam without improvemen t of insomnia. Discussed trying trazodone instead. Restless legs 31221897 G 25.81 Patient taking Requip for restless legs. Generalized rash 4657314 06 R21 Rash due to Vectibix. This has improved. Atrial fibrillation 4943 6004 I48.91 Patient has been diagnosed with congestive heart failure and atrial fibrillati on. She has been started on Coumadin. She is following with the Coumadin clinic at [facility]. Congestive heart failure 01436915 I50.9 Patient has been diagnosed with congestive heart failure. She has started lasix and is following with a cardiologi . Cachexia 769659788 R64 Patient has had decreased appetite and weight loss. She is drinking nutritiona l supplement s. Discussed appetite stimulant. Patient previously refused. She has started on Megace. She does not like the taste of Megace. Discussed Megace tablets instead of liquid but patient declines at this time. Will continue to monitor History of deep vein thrombosis 163001697 Z86.718 Patient developed right lower extremity pain [...] repeat venous duplex. Drug therapy finding 309 320964 Z79.01 She continues on Coumadin due to a fib. She is following with the Coumadin clinic at [facility]. Candidiasis of skin 4988 3006 B37.2 Patient [...] Guarantor Name 06/02/2023 [place] Vicky Roblero [id number] Vicky Roblero 06/02/2023 1 [employer] (MEDICARE SUPPLEMENT) Vicky Roblero [id number] Vicky Roblero 10/01/2024 2 [employer] Vicky Roblero [id number] Vicky Roblero 06/02/2023 1 MEDICARE B-[place]: [place] Vicky Roblero [id number] Vicky Roblero 06/02/2023 2 [employer] (MEDICARE SUPPLEMENT) Vicky Roblero [id number] Vicky Roblero 10/30/2024 1 [place] Vicky Roblero [id number] Vicky Roblero Notes Date Note Type Note Provider Name and Address Organization Details Recorded Time 08/01/2024 text/html 78 yo F returns for evaluation of metastatic colon cancer. Patient recently seen on February 17, 2023 in the emergency room at [facility] with abdominal pain. Patient reported epigastric pain [...] 8.2 hematocrit 29.0. MCV 67.9. Platelet count 588197. Normal cell differential. Low serum folate of [...] with metastatic colorectal cancer. Discussed chemotherapy with [place] based regimen with 5FU Leucovorin if [...] is following with the Coumadin clinic at [facility]. She is scheduled for cardiac MRI. [...] study published in September 2022 in the [facility] of combined Avastin therapy with [place]. Phase 3 trial with median overall survival of 10.8 months in combination therapy verses 7.5 months L[place]urf alone. Progression-free survival 5.6 months versus 2.4 months in [place] alone therapy. Tomy King MD [address], [place], [address], [place] [facility] [place] [facility] [place] 08/01/2024 13:08:52 08/10/2024 text/html 78 yo F returns for evaluation of metastatic colon cancer. Patient recently seen on February 17, 2023 in the emergency room at [facility] with abdominal pain. Patient reported epigastric pain [...] 8.2 hematocrit 29.0. MCV 67.9. Platelet count 169861. Normal cell differential. Low serum folate of [...] with metastatic colorectal cancer. Discussed chemotherapy with [place] based regimen with 5FU Leucovorin if [...] is following with the Coumadin clinic at [facility]. She is scheduled for cardiac MRI. [...] study published in September 2022 in the [facility] of combined Avastin therapy with [...] for tolerability and toxicity. Hanna Fournier PA-C [address] [facility], [place], [address], [place] [facility] [place] [facility] [place] 08/10/2024 11:13:32 08/25/2024 text/html 78 yo F returns for evaluation of metastatic colon cancer. Patient recently seen on February 17, 2023 in the emergency room at [facility] with abdominal pain. Patient reported epigastric pain [...] 8.2 hematocrit 29.0. MCV 67.9. Platelet count 073071. Normal cell differential. Low serum folate of [...] with metastatic colorectal cancer. Discussed chemotherapy with [place] based regimen with 5FU Leucovorin if [...] is following with the Coumadin clinic at [facility]. She is scheduled for cardiac MRI. [...] study published in September 2022 in the [facility] of combined Avastin therapy with [...] tolerability and toxicity. Hanna Fournier PA-C [address] , [place], [address], [place] [facility] [place] [facility] [place] 08/25/2024 10:43:13 09/02/2024 text/html 78 yo F returns for evaluation of metastatic colon cancer. Patient recently seen on February 17, 2023 in the emergency room at [facility] with abdominal pain. Patient reported epigastric pain [...] 8.2 hematocrit 29.0. MCV 67.9. Platelet count 797120. Normal cell differential. Low serum folate of [...] with metastatic colorectal cancer. Discussed chemotherapy with [place] based regimen with 5FU Leucovorin if [...] is following with the Coumadin clinic at [facility]. She is scheduled for cardiac MRI. [...] study published in September 2022 in the [facility] of combined Avastin therapy with [...] cycle. Will follow up. Hanna Fournier PA-C [address] , [place], [address], [place] [facility] [place] [facility] [place] 09/02/2024 12:55:35 11/01/2024 text/html 79 yo F returns for evaluation of metastatic colon cancer. Patient recently seen on February 17, 2023 in the emergency room at [facility] with abdominal pain. Patient reported epigastric pain [...] 8.2 hematocrit 29.0. MCV 67.9. Platelet count 517447. Normal cell differential. Low serum folate of [...] with metastatic colorectal cancer. Discussed chemotherapy with [place] based regimen with 5FU Leucovorin if [...] is following with the Coumadin clinic at [facility]. She is scheduled for cardiac MRI. [...] study published in September 2022 in the [facility] of combined Avastin therapy with [...] to have if needed. Hanna Fournier PA-C [address], [place], [address], [facility] - [facility] [place] [facility] [place] 11/01/2024 13:57:44 OBGyn Episode No OBEpisode recorded.
--- OUTSIDE RECORDS SUMMARY | 2024-11-18 11:45 | XMS_ITS | Clinical Summary ---
Author Organization [facility] Address [address] [place] [address] Phone Care Team Providers Care Health Sanitarian Name Role Phone Luis Villasenor MD Unavailable [phone] Luis Villasenor MD Primary Care Provider Allergies [...] early 2024 per patient decision Managed by [facility] Oncology and Hematology Assessment & Plan (10/02/2024 10:12 PM EDT): - has active disease - managed by Oncology -has stopped treatment 07/2024 Assessment & Plan (06/14/2024 9:41 PM EST): - has active disease - currently undergoing chemotherapy / immunotherapy - managed by Oncology, [facility] Oncology and Hematology Malignant tumor of ascending colon 06/14/2024 Overview (06/14/2024): CT scan 01/2023 with multiple masses of liver and ascending colon thickening. 04/2023, R hemicolectomy and anastomosis, pathology of invasive moderately differentiated adenocarcinoma. Metastatic adenocarcinoma in 2/10 lymph nodes. Wedge resection of the liver with metastatic adenocarcinoma consistent with colon primary. Continues with chemotherapy [id number]. 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 Youngblood, cardiology. Taking 5mg M// and 2.5mg other days Paroxysmal atrial fibrillation 06/14/2024 Overview (06/14/2024): Dr. Youngblood, cardiology, [facility] Assessment & Plan (10/02/2024 10:12 PM EDT): [...] new coumadin start today Medication Management: - [id number] score considered in medication management decisions at [...] Living will, counseling/discussion 03/30/2015 Overview (02/09/2020): Declines residential vent support and residential hydration and nutrition via feeding tube or [...] glucose tolerance) Overview (03/30/2015): Calorie restrict attempt 0899-6544 calories per day. Decrease starches like bread [...] Description 11/14/2024 9:00 AM EDT Office Visit [address] [place] [address] Amarilis Nolan, MAINTENANCE DEPARTMENT TECHNICIAN 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) (Primary Dx); History of DVT (deep vein thrombosis); Paroxysmal atrial fibrillation (HCC); Cobalamin deficiency; Flank pain; Dehydration; Blood loss 11/11/2024 Orders Only [address] [place] [address] Amarilis Nolan, MIGUEL ANGEL Flank pain (Primary Dx); Blood loss; Dehydration 11/04/2024 11:15 AM EDT Office Visit [address] [place] [address] Amarilis Nolan, MIGUEL ANGEL Diverticulitis of large intestine without perforation or abscess without bleeding (Primary Dx); Peripheral edema; Malignant tumor of ascending colon (HCC); 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) 11/01/[address] [place] [address] Luis Villasenor MD Other 10/28/2024 Results Follow-Up [address] [place] [address] Amarilis Nolan, MIGUEL ANGEL COMPREHENSIVE METABOLIC PANEL, URINE CULTURE (NO STAIN) 10/26/2024 11:00 AM EDT Clinical Support [address] [place] [address] Freya Coon Flank pain 10/26/2024 Orders Only [address] [place] [address] Amarilis Nolan, MIGUEL ANGEL Flank pain (Primary Dx) 10/26/[address] [place] [address] Luis Villasenor MD Relaying Information (Reporting new issues with pain. ///) 10/11/[address] [place] [address] Luis Villasenor MD Other (FYI- pt is wanting palliative care, home health asking if pcp would like to do this. ) 10/07/[address] [place] [address] Luis Villasenor MD Orders (VO for OT) 09/30/[address] [place] [address] Luis Villasenor MD Orders (SN,verbal ) 09/26/2024 1:00 PM EDT Office Visit [address] [place] [address] Amarilis Nolan APRN Acute on chronic heart failure with preserved ejection fraction (HCC) (Primary Dx); Paroxysmal atrial fibrillation (HCC); Nausea and vomiting, unspecified vomiting type; Malignant tumor of ascending colon (HCC); 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); terminal make up operator (current) use of anticoagulants 09/22/[address] [place] [address] Luis Villasenor MD Orders (personal touch home care) 09/19/2024 Nurse Triage [address] [place] [address] Luis Villasenor MD Peripheral edema (Primary Dx) 09/13/2024 Telephone [facility] [employer] [address] [address] Cayden Nagel MD Results 09/12/[address] [place] [address] Amarilis Nolan APRN Other (Calling with INR results from ); Patient Returning Call (Check status of INR message); Follow Up ( requesting call back from office with patient's cutting pressman 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 Please advise) from Last 3 Months Immunizations Immunization Administration Dates Next Due Pneumococcal Conjugate Vaccine 13 Valent 015 Pneumococcal Polysaccharide 23 Valent 12/04/2016 Tdap 01/20/2011 01/20/2021 Surgical History Surgery Date Site/Laterality Comments HYSTERECTOMY secondary to uterine fibroids TONGUE SURGERY benign tumor removed CARDIAC CATHETERIZATION CATARACT REMOVAL 07/09/2013 Left LEFT EYE CATARACT EXTRACTION WITH PHACOEMULSIFICATION AND INTRAOCULAR LENS; Surgeon: Keith Lynn MD; Location: [facility]; Service: Ophthalmology Medical devices from this surgery are in the Medical Devices section. CATARACT REMOVAL 08/03/2013 Eye/Right RIGHT EYE CATARACT EXTRACTION WITH PHACOEMULSIFICATION AND INTRAOCULAR LENS ; Surgeon: Keith Lynn MD; Location: [facility]; Service: Ophthalmology Medical devices from this [...] 09/22/1950 COVID-19 Vaccine (#1) 09/22/1952 Kidney Health: uACR 09/22/1957 Diabetic Eye Exam 09/22/1965 Zoster (1 of 2) 09/22/1966 Bone Density Screening 09/22/2012 DTaP/TDaP/Td (2 - Td or Tdap) 01/20/2021 01/20/2011 Lipids 02/08/2021 02/09/2020, 08/2018, 09/07/2017, Additional history exists RSV or 60+ (1 - 1-dose 75+ series) 09/22/2022 Hemoglobin A1c 03/10/2023 09/08/2022, 01/30, 02/02/2019, Additional history exists Influenza Vaccine (Season Ended) 2025 07/12/2015 (Declined) Kidney Health: eGFR 11/14/2025 11/14/2024, 10/26/2024, 09/01/2022, Additional history exists Hepatitis C Screening Completed 12/04/2016 Pneumococcal Vaccine [...] [place] [facility] Medical Devices Implanted Type Area Golf Professional Device Identifier Shelf Expiration Date Model / Serial / Lot Lens Intraocular 23.0 Diopter Acrysof Iq 13.0mm Length 6.0mm - [id number] Implanted:Qty: 1 on 07/09/2013 by Keith Lynn MD at [facility] Left: Eye [facility] 01/30/2018 [id number]. 0 / [id number] / Lens Intraocular 23.5 Diopter Acrysof Iq 13.0mm Length 6.0mm - [id number] Implanted:Qty: 1 on 08/03/2013 by Keith Lynn MD at [facility] Right: Eye [facility]URG 03/01/2018 [id number]. [id number] / [id number] / Procedures Procedure Name Priority Date/Time [...] mcg/dL 11/14/2024 4:07 PM EDT [facility], [facility] Transferrin 153(L) 200 - 360 mg/dL 11/14/2024 4:07 PM EDT [facility] Transferrin Saturation 12(L) 20 - 50 % 11/14/2024 4:07 PM EDT [facility] TIBC 214(L) 250 - 400 mcg/dL 11/14/2024 4:07 PM EDT [facility] Blood VENOUS BLOOD / Unknown Venipuncture / Unknown 11/14/2024 10:07 AM EDT 11/14/2024 10:07 AM EDT us Amarilis Nolan MAINTENANCE DEPARTMENT TECHNICIAN CHEMISTRY ORDERABLES Kell l Result [facility], [employer] [address] [facility] , [place] [address] * VITAMIN B12/ FOLIC ACID (11/14/2024 10:07 AM EDT) Vitamin B12 801 232 - 1,245 pg/mL 11/14/2024 4:02 PM EDT [facility] Folate 9.89 >=4.80 ng/mL 11/14/2024 4:02 PM EDT [facility], [facility] Blood VENOUS BLOOD / Unknown Venipuncture / Unknown 11/14/2024 10:07 AM EDT 11/14/2024 10:07 AM EDT Narrative [facility] - 11/14/2024 4:02 PM EDT Ingestion of rocio doses of biotin (>5 mg/day) taken within 8 hours of drawing blood sample can interfere with this immunoassay test. us Amarilis Nolan APRN CHEMISTRY ORDERABLES Kell orlando Result [facility], [facility] [address] [facility] , [address] [place] [phone] * (ABNORMAL) CBC WITH DIFF (11/14/2024 10:07 AM EDT) WBC 10.0 3.7 - 10.3 x10(3)/mcL 11/14/2024 3:44 PM EDT [facility] RBC 3.50(L) 3.90 - 5.20 x10(6)/mcL 11/14/2024 3:44 PM EDT [facility] Hgb 9.9(L) 11.2 - 15.7 g/dL 11/14/2024 3:44 PM EDT [facility] Hct 32.6(L) 34.0 - 45.0 % 11/14/2024 3:44 PM EDT [facility] MCV 93.1 80.0 - 100.0 fL 11/14/2024 3:44 PM EDT [facility] MCH 28.3 26.0 - 34.0 pg 11/14/2024 3:44 PM EDT [facility] MCHC 30.4(L) 30.7 - 35.5 g/dL 11/14/2024 3:44 PM EDT [facility] RDW 14.8 <=14.9 % 11/14/2024 3:44 PM EDT [facility] Platelet 375(H) 155 - 369 x10(3)/mcL 11/14/2024 3:44 PM EDT [facility] MPV 9.6 8.8 - 12.5 fL 11/14/2024 3:44 PM EDT [facility] Neut Percent 77.1 % 11/14/2024 3:44 PM EDT [facility] Comment:Neutrophils equals s egs plus bands Imm Gran% 0.6 % 11/14/2024 3:44 PM EDT [facility] Comment:Automated count of m etamyelocytes, myelocytes and promyelocytes. Lymph Percent 9.9 % 11/14/2024 3:44 PM EDT [facility] [place] Percent 8.3 % 11/14/2024 3:44 PM EDT [facility] Eos Percent 3.5 % 11/14/2024 3:44 PM EDT [facility] Baso Percent 0.6 % 11/14/2024 3:44 PM EDT [facility] Neut # 7.7(H) 1.6 - 6.1 x10(3)/[facility] 11/14/2024 3:44 PM EDT [facility] Comment:Neutrophils equals s egs plus bands IMMGRAN# 0.1 0.0 - 0.1 x10(3)/[facility] 11/14/2024 3:44 PM EDT [facility], [facility] Comment:Automated count of m etamyelocytes, myelocytes and promyelocytes. An absolute IG <0.1 is reported as 0.0. Lymph # 1.0(L) 1.2 - 3.9 x10(3)/[facility] 11/14/2024 3:44 PM EDT [facility] Benton # 0.8 0.3 - 0.9 x10(3)/[facility] 11/14/2024 3:44 PM EDT [facility] Eos# 0.4 0.0 - 0.5 x10(3)/[facility] 11/14/2024 3:44 PM EDT [facility] Baso # 0.1 0.0 - 0.1 x10(3)/[facility] 11/14/2024 3:44 PM EDT [facility], [facility] Blood VENOUS BLOOD / Unknown Venipuncture / Unknown 11/14/2024 10:07 AM EDT 11/14/2024 10:07 AM EDT Amarilis Nolan APRN HEMATOLOGY ORDERABLES Fin al Result Performing Organization Address [facility] Co de Phone Number [facility] [employer] [address] , [address] [phone] * (ABNORMAL) FERRITIN (11/14/2024 10:07 AM EDT) Ferritin 728(H) 30 - 150 ng/mL 11/14/2024 4:07 PM EDT [facility] [employer] [facility] Comment:The lower threshold of 30 [...] EDT Narrative [facility] [employer] [facility] - 11/14/2024 4:07 PM EDT Ingestion of rocio doses of biotin (>5 mg/day) taken within 8 hours of drawing blood sample can interfere with this immunoassay test. Amarilis Nolan APRN CHEMISTRY ORDERABLES Kell l Result Performing Organization Address [facility] de Phone Number [facility] [employer] [address] , [place] [address] * (ABNORMAL) COMPREHENSIVE METABOLIC PANEL (11/14/2024 10:07 AM EDT) Only the most recent of2 resultswithin the time period is included. Sodium 133(L) 136 - 145 mmol/L 11/14/2024 4:07 PM EDT [facility] [employer], [employer] Potassium 4.5 3.5 - 5.0 mmol/L 11/14/2024 4:07 PM EDT [facility] [employer], [employer] Chloride 94(L) 98 - 107 mmol/L 11/14/2024 [...] 4:07 PM EDT [facility] Albumin 3.4 3.2 - 4.6 gm/dL 11/14/2024 4:07 PM EDT [facility] Total Protein 7.8 6.4 - 8.3 gm/dL 11/14/2024 4:07 PM EDT [facility] Bili Total 0.6 0.2 - 1.3 mg/dL 11/14/2024 4:07 PM EDT [facility] ALT <5 <=41 U/L 11/14/2024 4:07 PM EDT [facility] AST 23 <=40 U/L 11/14/2024 4:07 PM EDT [facility] Alk Phos 465(H) 36 - 123 U/L 11/14/2024 4:07 PM EDT [facility] eGFR (CKD-EPIcr 2020) 39(L) >=60 mL/min/1.7 3 m2 11/14/2024 4:07 PM EDT [facility] Comment:Estimated GFR was ca lculated using the CKD-EPIcr (2020) equation refit without race. The equation is recommended by the National Kidney Foundation - [place] [employer] of Neph[employer] Task Force. Blood VENOUS BLOOD / Unknown Venipuncture / Unknown 11/14/2024 10:07 AM EDT 11/14/2024 10:07 AM EDT Amarilis Nolan APRN CHEMISTRY ORDERABLES Kell l Result Performing Organization Address [facility]/ZIP Co de Phone Number [facility] [address] [place] [address] , [place] [address] * URINE CULTURE (NO STAIN) (10/26/2024 11:17 AM EDT) Culture Multiple bacterial species isolated from urine consistent with urogenital commensal organisms. 10/27/2024 10:23 PM EDT [facility] Urine STRUCTURE OF URINARY TRACT PROPER / Unknown 10/26/2024 11:17 AM EDT 10/26/2024 11:17 AM EDT Amarilis Nolan APRN MICROBIOLOGY - GENERAL OR DERABLES Final Result Performing Organization Address [facility] Co de Phone Number [facility] [employer] [facility] [address] [facility] , [place] [address] * (ABNORMAL) SEP URINALYSIS POC [...] 0.2 0.2, 1.0 10/26/2024 11:17 AM EDT [place] [place] UA Nitrite POC Negative Negative 10/26/2024 11:17 AM EDT [facility]D [place] UA Leuk Est POC Negative Negative 11:17 AM EDT [place] [place] Urine STRUCTURE OF URINARY TRACT PROPER / Unknown 10/26/2024 11:14 AM EDT 10/26/2024 11:17 AM EDT us Lab Test POINT OF CARE TEST ORDERABLES Fi nal Result Performing Organization Address [facility] Co de Phone Number [place]D [place] [address] [place] [address] * (ABNORMAL) HEMOGLOBIN A1C (09/08/2022 2:38 PM EDT) Hgb A1C 7.3(H) 4.2 - 5.6 % 09/08/2022 8:16 PM EDT [facility] [employer] Sched[facility] Est. Avg Glucose 163 mg/dL 09/08/2022 8:16 PM EDT [facility] Blood VENOUS BLOOD / Unknown Venipuncture / Unknown 09/08/2022 2:38 PM EDT 09/08/2022 2:38 PM EDT Narrative [facility] - 09/08/2022 8:16 PM EDT REFERENCE RANGE: Normal: 4.0-5.6% Pre-diabetes: 5.7-6.4% Provisional diagnosis of diabetes: >6.4% Hgb F>10% and anything which shortens red cell survival, such as hemolytic anemia, or unstable hemoglobin variants such as HbSS, HbSC, or HbCC, will lower the HbA1c value associated with a given level of glycemic control. us Luis Villasenor MD CHEMISTRY ORDERABLES Final Result Performing Organization Address City/[facility] Co de Phone Number [facility] [address] [facility] , [place] [address] * LIPID PANEL REFLEX (02/09/2020 9:38 AM EDT) Cholesterol 157 <200 mg/dL 02/09/2020 4:17 PM EDT [facility] Comment: < 200 Desirable 200 - 239 Borderline High >= 240 High Triglyceride 85 <150 mg/dL 02/09/2020 4:17 PM EDT [facility] [employer] Comment: < 150 Normal 150 - 199 Borderline High 200 - 499 High >= 500 Very High HDL 41 >=40 mg/dL 02/09/2020 4:17 PM EDT [facility] Comment: > 60 Optimal 40 - 60 Acceptable < 40 Low LDL Calculated 99 <100 mg/dL 02/09/2020 4:17 PM EDT [facility] Non-HDL-C Calculated 116 <=129 mg/dL 02/09/2020 4:17 PM EDT [facility] [employer] Comment: <130 Desirable 130-159 Above Desirable 160-189 Borderline High 190-219 High >= 220 Very High Fasting Specimen? Yes None 020 4:17 PM EDT [facility] [employer] [facility] Blood VENOUS BLOOD / Unknown Venipuncture / Unknown 02/09/2020 9:38 AM EDT 02/09/2020 9:42 AM EDT Luis Villasenor MD CHEMISTRY ORDERABLES Final Result Performing Organization Address City/[facility]/ZIP Co de Phone Number [facility], [employer] [address] [facility], [place] [address] * HEPATITIS C ANTIBODY - SCREENING (12/04/2016 11:16 AM EDT) Hep C Ab Negative Negative [facility] Blood specimen (specimen) UPPER LIMB STRUCTURE / Unknown 12/04/2016 11:16 AM EDT 12/04/2016 4:52 PM EDT Luis Villasenor MD HEMATOLOGY ORDERABLES Final Result Performing Organization Address City/[facility] Co de Phone Number [facility] [address] [place] [address] from Last 3 Months or Most Recently Relevant to Health Maintenance Insurance MEDICARE [place] PART A [place] B [employer] [facility] [place] [address] [place]IC[place] [employer] MEDICARE [place] PART A AND B [facility] [address] [place] [address] Advance Directives For more information, please contact: [phone] * Full Code (Latest Code Status on File) Date Activated Date Inactivated Comments 10/28/2018 11:51 AM 10/28/2018 9:26 PM Care Teams Health Sanitarian Relationship Specialty Start Date End Date Luis Villasenor MD [address] [place] [address] PCP - OBGYN 01/09/10 Luis Villasenor MD [address] [place] [address] PCP - General 01/09/10
--- OUTSIDE RECORDS SUMMARY | 2024-11-18 11:46 | XMS_ITS | Encounter Summary ---
Author Organization [place] [address] Care Team Providers Care Home Demonstrator Name Role Phone Luis Villasenor MD Unavailable [phone] Luis Villasenor MD Primary Care Provider Encounter Details Date Type Department Care Team (Late st Contact Info) Description 09/26/2010 Orders Only [facility] [address] [place] [address] Jennifer Nagel MD [address] [place] [address] Social History Tobacco Use Types Packs/Day Years [...] a practice prior to that practice using [facility] for Medical Records. Performing Provider: JENNIFER NAGLE Jennifer Nagel MD IMG ECHO ORDERABLES Final Result documented in this encounter Visit Diagnoses Not on filedocumented in this encounter Care Teams Home Demonstrator Relationship Specialty Start Date End Date Luis Villasenor MD [address] [place] [address] PCP - OBGYN 01/09/10 Luis Vilalsenor MD [address] [place] [address] PCP - General 01/09/10 documented as of this encounter
[2024-11-18 13:18] LABS: PHA INR Fingerstick 5.1 (0.9-1.1)
== END 2024-11-18 13:34 ==
LOC: ACC 11:42
PROVIDERS: PCP Nurse Practitioner Family; Visit Provider Physician Assistant
DX: Z79.01 Long term (current) use of anticoagulants (principal)
CPT/HCPCS: 85610; 99211; G0463

== ENCOUNTER 2024-11-24 11:12 | Outpatient (CLI) | payer MEDICARE, SELFPAY ==
--- OUTSIDE RECORDS SUMMARY | 2024-09-26 13:00 | XMS_ITS | Encounter Summary ---
Author Organization [place] [address] Care Team Providers Care Supervisor Screen Making Name Role Phone Luis Villasenor MD Unavailable [phone] Luis Villasenor MD Primary Care Provider Reason for Visit * Reason Comments Hospital Follow Up Encounter Details Date Type Department Care Team (Latest Contact Info) Description 09/26/2024 1:00 PM EDT Office Visit [facility] [address] 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 Youngblood, cardiology. 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 Youngblood, cardiology. Taking 5mg M/W/F and 2.5mg other days Acute on chronic heart failure with preserved ejection fraction (HCC) -continue cardiology care with Dr. Youngblood, [facility] Orders: fUROsemide (LASIX) 40 mg [...] hospital follow up. She was admitted to [facility] on 09/19/2024 and discharged 09/20/2024 [...] Coumadin is managed at coumadin clinic at [facility]. Hospital discharge summary, most recent [...] liver (HCC) Secondary malignant neoplasm of liver senior living (current) use of anticoagulants Long-term (current) use [...] documented as of this encounter Care Teams Supervisor Screen Making Relationship Specialty Start Date End Date Luis Villasenor MD [address] [place] [phone] PCP - OBGYN 01/09/10 Luis Villasenor MD [address] [place] [phone] PCP - General 01/09/10 documented as of this encounter
--- OUTSIDE RECORDS SUMMARY | 2024-10-26 11:00 | XMS_ITS | Encounter Summary ---
Author Organization [place] [address] Care Team Providers Care Marine Biologist Name Role Phone Luis Villasenor MD Unavailable [phone] Luis Villasenor MD Primary Care Provider Reason for Visit * Reason Comments Labs Only Encounter Details Date Type Department Care Team (Late Contact Info) Description 10/26/2024 11:00 AM EDT Clinical Support TODD [place] [address] [place] [address] Freya Coon [facility] [place] [address] [place] [address] [place] [address] Flank pain Social History Tobacco Use Types Packs/Day Years Used Date Smoking Tobacco: Some Days Cigarettes 1 1 Started: 01/21/1980; Last attempted to quit: 01/20/1981 Smokeless Tobacco: Never Alcohol Use Standard Drinks/Week Comments No 0 [...] on file documented as of this encounter Functional Status * Is the person deaf or does he/she have serious difficulty hearing? Answer Date of Assessment Author No 02/09/2020 8:59 AM EDT Nghia Redmond CMA * Is the person blind or does he/she have serious difficulty seeing even when wearing glasses? Answer Date of Assessment Author No 02/09/2020 8:59 AM Nghia Aguirre CMA * Does this person have serious difficulty walking or climbing stairs? Answer Date of Assessment Author No 02/09/2020 8:59 AM EDNghia Paris CMA * Does this person have difficulty dressing or bathing? Answer Date of Assessment Author No 02/09/2020 8:59 AM EDT Nghia Redmond CMA * Because of a physical, mental or emotional condition, does this person have difficulty doing errands alone such as visiting a doctor's office or shopping? Answer Date of Assessment Author No 02/09/2020 8:59 AM Nghia Aguirre CMA documented as of this encounter Mental Status * Because of a physical, mental or emotional condition, does this person have serious difficulty concentrating, remembering or making decisions? Answer Entry Date Author No 02/09/2020 8:59 AM Nghia Aguirre CMA documented in this encounter Progress Notes * Freya Coon - 10/26/2024 11:00 AM EDT Venipuncture in the right antecubital vein with 21 gauge needle, length 1 1/2 inch. documented in this encounter Plan of Treatment [...] Redmond CMA documented as of this encounter Procedures Procedure Name Priority Date/Time Associated Diagnosis Comments URINE CULTURE (NO STAIN) Routine 10/26/2024 11:17 AM EDT Flank pain SEP URINALYSIS POC Routine 10/26/2024 11 :14 AM EDT Flank pain COMPREHENSIVE METABOLIC PANEL Routine 10/26/2024 11:03 AM EDT Flank pain documented in this encounter Results * URINE CULTURE (NO STAIN) (10/26/2024 11:17 AM EDT) Pathologist [facility] Culture Multiple bacterial species isolated from urine consistent with urogenital commensal organisms. 10/27/2024 10:23 PM EDT [employer] Urine STRUCTURE OF URINARY TRACT PROPER / Unknown 10/26/2024 11:17 AM EDT 10/26/2024 11:17 AM EDT us Amarilis Nolan APRN MICROBIOLOGY - GENERAL OR DERABLES Final Result [employer] [address] [facility] , [place] [address] * (ABNORMAL) SEP URINALYSIS POC (10/26/2024 11:14 AM EDT) UA Color POC Yellow Color 10/26/2024 11:17 AM EDT SEP [place] UA Appear POC Clear Clear 10/26/2024 11:17 AM EDT [facility] [place] UA Gluc POC Negative Negative mg/dL 10/26/2024 11:17 AM EDT [facility] [place] UA Bili POC Negative Negative 10/26/2024 11:17 AM EDT [facility] [place] UA Ketones POC Negative Negative mg/dL 10/26/2024 11:17 AM EDT [facility] [place] UA SG POC 1.015 1.001 - 1.035 no units 10/26/2024 11:17 AM EDT [facility] [place] UA Blood POC Trace-Intact (A) Negative 10/26/2024 11:17 AM EDT [facility] [place] UA pH POC 5.5 5.0 - 8.0 pH 10/26/2024 11:17 AM EDT [facility] [place] UA Protein POC Negative Negative mg/dL 10/26/2024 11:17 AM EDT [facility] [place] UA Urobilinogen POC 0.2 0.2, 1.0 10/26/2024 11:17 AM EDT [facility] [place] UA Nitrite POC Negative Negative 10/26/2024 11:17 AM EDT [facility] [place] UA Leuk Est POC Negative Negative 11:17 AM EDT [facility] [place] Urine STRUCTURE OF URINARY TRACT PROPER / Unknown 10/26/2024 11:14 AM EDT 10/26/2024 11:17 AM EDT us Lab Test POINT OF CARE TEST ORDERABLES Fi nal Result TODD [place] [address] [place] [address] * (ABNORMAL) COMPREHENSIVE METABOLIC PANEL (10/26/2024 11:03 AM EDT) Sodium 135(L) 136 - 145 mmol/L 10/26/2024 4:28 PM EDT [facility] Potassium 4.9 3.5 - 5.0 mmol/L 10/26/2024 4:28 PM EDT [facility] Chloride 94(L) 98 - 107 mmol/L 10/26/2024 4:28 PM EDT [facility] Total CO2 28 22 - 29 mmol/L 10/26/2024 4:28 PM EDT [facility] Anion Gap 13 7 - 16 mmol/L 10/26/2024 4:28 PM EDT [facility] Calcium 9.6 8.8 - 10.4 mg/dL 10/26/2024 4:28 PM EDT [facility] Glucose Lvl 128(H) 70 - 99 mg/dL 10/26/2024 4:28 PM EDT [facility] BUN 16 8 - 23 mg/dL 10/26/2024 4:28 PM EDT [facility] Creatinine 1.27 0.51 - 1.30 mg/dL 10/26/2024 4:28 PM EDT [facility] Albumin 3.5 3.2 - 4.6 gm/dL 10/26/2024 4:28 PM EDT [facility] Total Protein 7.4 6.4 - 8.3 gm/dL 10/26/2024 4:28 PM EDT [facility] Bili Total 0.7 0.2 - 1.3 mg/dL 10/26/2024 4:28 PM EDT [facility] ALT 11 <=41 U/L 10/26/2024 4:28 PM EDT [facility] AST 28 <=40 U/L 10/26/2024 4:28 PM EDT [facility] Alk Phos 259(H) 36 - 123 U/L 10/26/2024 4:28 PM EDT [facility] eGFR (CKD-EPIcr 2020) 43(L) >=60 mL/min/1.7 3 m2 10/26/2024 4:28 PM EDT [facility] Comment:Estimated GFR was ca lculated using the CKD-EPIcr (2020) equation refit without race. The equation is recommended by the National Kidney Foundation - [place] Society of Nephrology Task Force. Blood VENOUS BLOOD / Unknown Venipuncture / Unknown 10/26/2024 11:03 AM EDT 10/26/2024 11:03 AM EDT us Amarilis Nolan ORACLE ARCHITECT CHEMISTRY ORDERABLES Kell l Result [facility] [address] [facility] , [place] [address] documented in this encounter Visit Diagnoses Diagnosis Flank pain Abdominal pain, unspecified site documented in this encounter Additional Health Concerns Assessment Noted Time A fall risk assessment has been complete d for the patient 06/14/2024 9:03 AM EST documented as of this encounter Care Teams Marine Biologist Relationship Specialty Start Date End Date Luis Villasenor MD [address] [place] [address] PCP - OBGYN 01/09/10 Luis Villasenor MD [address] [place], [place] [address] PCP - General 01/09/10 documented as of this encounter
--- OUTSIDE RECORDS SUMMARY | 2024-11-04 11:15 | XMS_ITS | Encounter Summary ---
Author Organization [place] [address] Care Team Providers Care Remote Sensing Technologist Name Role Phone Luis Villasenor MD Unavailable [phone] Luis Villasenor MD Primary Care Provider Reason for Visit * Reason Comments Hospital Follow Up Diverticulitis Encounter Details Date Type Department Care Team (Latest Contact Info) Description 11/04/2024 11:15 AM EDT Office Visit SEP Sarah [address] [phone] Amarilis Nolan, PRODUCT/DEVICE TECHNOLOGIST [address] [place] [address] Diverticulitis of large intestine without perforation or [...] this encounter Progress Notes * Amarilis Nolan, PRODUCT/DEVICE TECHNOLOGIST - 11/04/2024 11:15 AM EDT Assessment & [...] without bleeding Comments: inpatient hospital stay at [facility] November 03, symptoms resolved Peripheral edema [...] consistent with colon primary. Continues with chemotherapy [id number]. Managed by [facility] Oncology and Hematology 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) (Chronic) Overview: CT scan 01/2023 with multiple masses of liver and ascending colon thickening. 04/2023, R hemicolectomy and anastomosis, pathology of invasive moderately differentiated adenocarcinoma. Metastatic adenocarcinoma in 2/10 lymph nodes. Wedge resection of the liver with metastatic adenocarcinoma consistent with colon primary. Continues with chemotherapy [id number]. Managed by [facility] Oncology and Hematology Return in about 6 weeks (around 12/16/2024) for 6 week follow up, video visit ok. Subjective CHEMA Roblero is a 79 y.o. female Chief Complaint Patient presents with Hospital Follow Up Diverticulitis History of Present Illness The patient is a 79-year-old female here for a hospital follow-up. She was admitted to [facility] for diverticulitis. Denies ongoing symptoms since [...] educated the patient (or legal sales representative health insurance) on the use of the ambient listening artificial intelligence tool, [employer]. They were informed that this AI tool [...] information, the patient (or legal sales representative health insurance), and each individual in attendance with the [...] documented as of this encounter Care Teams Remote Sensing Technologist Relationship Specialty Start Date End Date Luis Villasenor MD [address] [place] [id number] PCP - OBGYN 01/09/10 Luis Villasenor MD [address] [place] [phone] PCP - General 01/09/10 documented as of this encounter
--- OUTSIDE RECORDS SUMMARY | 2024-11-14 09:00 | XMS_ITS | Encounter Summary ---
Author Organization [place] [address] Care Team Providers Care Door Captain Name Role Phone Luis Villasenor MD Unavailable [phone] Luis Villasenor MD Primary Care Provider Reason for Visit * Reason Comments Follow Up Needs labs, feeling drained, wants a b-12 Encounter Details Date Type Department Care Team (Late Contact Info) Description 11/14/2024 9:00 AM EDT Office Visit SEP Sarah [address] [place] [phone] Amarilis Nolan, SHEET METAL SUPERINTENDENT [address] [place] [address] 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) (Primary [...] No 02/09/2020 8:59 AM EDT Nghia Redmond, CELLOPHANE PRESS OPERATOR documented in this encounter Ordered Prescriptions Prescription [...] encounter Progress Notes * Ovidio Amarilis Terrie, SHEET METAL SUPERINTENDENT - 11/14/2024 9:00 AM EDT Assessment & [...] 2024 per patient decision Managed by [facility] Orders: - CBC WITH [...] fibrillation (HCC) (Chronic) Overview: Dr. Youngblood, cardiology, [facility] Orders: - warfarin (COUMADIN) 5 mg Oral [...] Gran% 0.6 % Lymph Percent 9.9 % Glacier Percent 8.3 % Eos Percent 3.5 % Baso Percent 0.6 % Neut # 7.7 (H) 1.6 - 6.1 x10(3)/mcL IMMGRAN# 0.1 0.0 - 0.1 x10(3)/mcL Lymph # 1.0 (L) 1.2 - 3.9 x10(3)/mcL Glacier # 0.8 0.3 - 0.9 x10(3)/mcL Eos# [...] The provider educated the patient (or legal software sales representative) on the use of the ambient listening artificial intelligence tool, [employer]. They were informed that this AI tool [...] of such information, the patient (or legal software sales representative), and each individual in attendance [...] 11/14/2024 3:44 PM EDT [facility] MCH 28.3 26.0 - 34.0 pg 11/14/2024 3:44 PM EDT [facility] MCHC 30.4(L) 30.7 - 35.5 g/dL 11/14/2024 3:44 PM EDT [facility] RDW 14.8 <=14.9 % 11/14/2024 3:44 PM EDT [facility] Platelet 375(H) 155 - 369 x10(3)/mcL 11/14/2024 3:44 PM EDT [facility] MPV 9.6 8.8 - 12.5 fL 11/14/2024 3:44 PM EDT [facility] Neut Percent 77.1 % 11/14/2024 3:44 PM EDT [facility] Comment:Neutrophils equals s egs plus bands Imm Gran% 0.6 % 11/14/2024 3:44 PM EDT [facility] Comment:Automated count of m etamyelocytes, myelocytes and promyelocytes. Lymph Percent 9.9 % 11/14/2024 3:44 PM EDT [facility] Glacier Percent 8.3 % 11/14/2024 3:44 PM EDT [facility] Eos Percent 3.5 % 11/14/2024 3:44 PM EDT [facility] Baso Percent 0.6 % 11/14/2024 3:44 PM EDT [facility] Neut # 7.7(H) 1.6 - 6.1 x10(3)/mcL 11/14/2024 3:44 PM EDT [facility] Comment:Neutrophils equals s egs plus bands IMMGRAN# 0.1 0.0 - 0.1 x10(3)/mcL 11/14/2024 3:44 PM EDT [facility] Comment:Automated count of m etamyelocytes, myelocytes and promyelocytes. An absolute IG <0.1 is reported as 0.0. Lymph # 1.0(L) 1.2 - 3.9 x10(3)/mcL 11/14/2024 3:44 PM EDT [facility] Glacier # 0.8 0.3 - 0.9 x10(3)/mcL 11/14/2024 3:44 PM EDT [facility] Eos# 0.4 0.0 - 0.5 x10(3)/mcL 11/14/2024 3:44 PM EDT [facility] Baso # 0.1 0.0 - 0.1 x10(3)/mcL 11/14/2024 3:44 PM EDT [facility] Blood VENOUS BLOOD / Unknown Venipuncture / Unknown 11/14/2024 10:07 AM EDT 11/14/2024 10:07 AM EDT us Amarilis Nolan SHEET METAL SUPERINTENDENT HEMATOLOGY ORDERABLES Fin al Result [facility] [address] [facility] , [place] [address] * (ABNORMAL) COMPREHENSIVE METABOLIC PANEL (11/14/2024 10:07 [...] 11/14/2024 4:07 PM EDT [facility] Albumin 3.4 3.2 - 4.6 gm/dL 11/14/2024 4:07 PM EDT [facility], [facility] Total Protein 7.8 6.4 - 8.3 gm/dL 11/14/2024 4:07 PM EDT [facility], [facility] Bili Total 0.6 0.2 - 1.3 mg/dL 11/14/2024 4:07 PM EDT [facility], [facility] ALT <5 <=41 U/L 11/14/2024 4:07 PM EDT [facility] AST 23 <=40 U/L 11/14/2024 4:07 PM EDT [facility], [facility] Alk Phos 465(H) 36 - 123 U/L 11/14/2024 4:07 PM EDT [facility] eGFR (CKD-EPIcr 2020) 39(L) >=60 mL/min/1.7 3 m2 11/14/2024 4:07 PM EDT [facility] Comment:Estimated GFR was ca lculated using the CKD-EPIcr (2020) equation refit without race. The equation is recommended by the National Kidney Foundation - [place] [employer] of Nephrology Task Force. Blood VENOUS BLOOD / Unknown Venipuncture / Unknown 11/14/2024 10:07 AM EDT 11/14/2024 10:07 AM EDT Amarilis Nolan SHEET METAL SUPERINTENDENT CHEMISTRY ORDERABLES Kell orlando Result [facility], [facility] [address] [facility] , [address] [place] [id number] * (ABNORMAL) FERRITIN (11/14/2024 10:07 AM EDT) Ferritin 728(H) 30 - 150 ng/mL 11/14/2024 4:07 PM EDT [facility], [facility] Comment:The lower threshold of 30 is not [...] 11/14/2024 10:07 AM EDT Narrative [facility] - 11/14/2024 4:07 PM EDT Ingestion of rocio doses of biotin (>5 mg/day) taken within 8 hours of drawing blood sample can interfere with this immunoassay test. Amarilis Nolan APRN CHEMISTRY ORDERABLES Kell l Result Performing Organization Address City/[facility] Co de Phone Number [facility] [address] [facility] , [place] [address] * (ABNORMAL) IRON+TIBC (11/14/2024 10:07 AM EDT) Iron 26(L) 30 - 160 mcg/dL 11/14/2024 4:07 PM EDT [facility] Transferrin 153(L) 200 - 360 mg/dL 11/14/2024 4:07 PM EDT [facility] Transferrin Saturation 12(L) 20 - 50 % 11/14/2024 4:07 PM EDT [facility] TIBC 214(L) 250 - 400 mcg/dL 11/14/2024 4:07 PM EDT [facility] Blood VENOUS BLOOD / Unknown Venipuncture / Unknown 11/14/2024 10:07 AM EDT 11/14/2024 10:07 AM EDT Amarilis Nolan APRN CHEMISTRY ORDERABLES Kell l Result Performing Organization Address City/[facility]/ZIP Co de Phone Number [facility] [address] [facility] , [place] [address] * VITAMIN B12/ FOLIC ACID (11/14/2024 10:07 AM EDT) Vitamin B12 801 232 - 1,245 pg/mL 11/14/2024 4:02 PM EDT [facility] Folate 9.89 >=4.80 ng/mL 11/14/2024 4:02 PM EDT [facility] Blood VENOUS BLOOD / Unknown Venipuncture / Unknown 11/14/2024 10:07 AM EDT 11/14/2024 10:07 AM EDT Narrative [facility] - 11/14/2024 4:02 PM EDT Ingestion of rocio doses of biotin (>5 mg/day) taken within 8 hours of drawing blood sample can interfere with this immunoassay test. us Amarilis Nolan APRN CHEMISTRY ORDERABLES Kell darion Result [facility] [address] [facility] , [address] [place] [id number] documented in this encounter Visit Diagnoses Diagnosis [...] 4 mg by mouth every 6 hours. added in this encounter Orders Lab Orders Without Results Count Last Ordered D ate First Ordered Date CBC WITH DIFF 1 11/14/2024 COMPREHENSIVE METABOLIC PANEL 1 11/14/2024 documented in this encounter Additional Health Concerns Assessment Noted Time A fall risk assessment has been complete d for the patient 06/14/2024 9:03 AM EST documented as of this encounter Care Teams Door Captain Relationship Specialty Start Date End Date Luis Villasenor MD [address] [place] [id number] PCP - OBGYN 01/09/10 Luis Villasenor MD [address] [place] [id number] PCP - General 01/09/10 documented as of this encounter
--- OUTSIDE RECORDS SUMMARY | 2024-11-24 11:15 | XMS_ITS | Encounter Summary ---
Author Organization [place] [address] Care Team Providers Care Dredgemaster Name Role Phone Luis Villasenor MD Unavailable [phone] Luis Villasenor MD Primary Care Provider Encounter Details Date Type Department Care Team (Latest Contact Info) Description 10/28/2024 Results Follow-Up SEP Sarah [address] [place] [id number] Amarilis Nolan, POSTAL WORKER [address] [place] [address] COMPREHENSIVE METABOLIC PANEL, URINE CULTURE (NO [...] documented as of this encounter Care Teams Dredgemaster Relationship Specialty Start Date End Date Luis Villasenor MD [address] [place] [address] PCP - OBGYN 01/09/10 Luis Villasenor MD [address] [place] [address] PCP - General 01/09/10 documented as of this encounter
--- OUTSIDE RECORDS SUMMARY | 2024-11-24 11:15 | XMS_ITS | Encounter Summary ---
Author Organization [place] [address] Care Team Providers Care Retanned Leather Roller Name Role Phone Luis Villasenor MD Unavailable [phone] Luis Villasenor MD Primary Care Provider [phone] Reason for Visit * Reason Onset Date Comments Orders 09/30/2024 SN,verbal Encounter Details Date Type Department Care Team (Late Contact Info) Description 09/30/2024 Telephone SEP Sarah [facility] [place] [address] [address] Luis Villasenor MD [address] [facility] [place] [address] Orders (SN,verbal ) Social History Tobacco [...] name: Ivis) What Orders are being requested: Penitentiary Reason Orders are Needed (Diagnosis): increase frequency for more education Is a verbal order being requested: Yes If non-[facility], where should the order be [...] documented as of this encounter Care Teams Retanned Leather Roller Relationship Specialty Start Date End Date Luis Villasenor MD [address] [place] [address] PCP - OBGYN 01/09/10 Luis Villasenor MD [address] [place] [id number] PCP - General 01/09/10 documented as of this encounter
--- OUTSIDE RECORDS SUMMARY | 2024-11-24 11:15 | XMS_ITS | Continuity of Care Document ---
Author Organization [facility] Address [address] [place] [address] Care Team Providers Care Thread Grinder Name Role Phone ADDY GONZALES General Surgeon CARLOS A COATS Primary Care Provider [phone] VERONIKA RIVER Lead Man Over All Dies In Pattern Shop Assessment No assessment recorded. Plan of Treatment Reminders Order Date Submit Date Provider Last Modified By Organization Details Last Modified Time Details Appointments OV EST 30 2024 11:00A M Hanna Snider PA-C Not available Not available Not available OV EST 30 2024 11:00A M Hanna Snider PA-C Not available Not available Not available Lab carcinoem bryonic Ag, quant, serum or plasma 2024 025 [email or web address] [facility], [address] [facility], [place], [address], 11/08/2024 10:04:49 CMP, serum or plasma 2024 025 [email or web address] [facility], [address] [facility], [place], [address], 11/01/2024 15:54:32 CBC w/ diff 2024 025 [email or web address] [facility], [address] [facility], [place], [address], 11/08/2024 10:04:49 Referral None recorded. Procedures None recorded. Surgeries None recorded. Imaging None recorded. Medication Orders nystatin 100,000 unit/gram topical powder 2024 025 [id number], [address] [place], [address], 11/01/2024 13:56:59 Patient TargetsNo targets recorded. Patient InstructionsNo instructions recorded. Reason for Referral None Reported. Problems Name Problem SNOMED Code Status Onset Date Resolution Date Notes Provider Name and Address Organization Details Recorded Time Headache 61727752 Active 2024 Christine yusuf [place] - [facility] & [place] 5 10:27:12 Metastatic malignant neoplasm to liver 94511492 Active [address], [place], [address] , [place] - [facility] & [place] 3 14:27:25 Mass of colon 147842602 Active [address], [place], [address] , [place] [facility] & [place] 3 14:27:30 Anemia 866989488 Active [address], [place], [address] , [place] [facility] & [place] 3 14:27:36 Nausea and vomiting 34290054 Active [address], [place], [address] , [place] [facility] & [place] 3 14:27:46 Unintentional weight loss 643938716 Active [address], [facility] [address] , [place] - [facility] & [place] 3 16:13:07 Night sweats 55048757 Active [address], [place], [address] , [facility] & [place] 3 16:13:12 Problem Notes Documentation Provider Name and Address Organization Details Recorded Time Oncology Patient Navigator : ONN met with pt at [facility] with medical oncology. Pt states she is doing well at this time. Hospice consult was briefly discussed and pt declined at this time. ONN encouraged pt to reach out may any needs/concerns arise. [facility] [place] 11/01/2024 13:52:48 Procedures Surgical History Date Name Laterality Status Provider Name and Address Organization Details Recorded Time 04/29/20 23 Venipuncture completed Hanna Snider PA-C [address], [place], [address], [facility] & [place] 04/27/2023 15:05:29 04/15/20 23 Venipuncture completed Stephanie Maravilla [facility] & [place] 04/15/2023 15:24:55 hysterectomy completed Laurel Samuels [facility] & [place] 03/11/2023 15:30:22 extraction of cataract completed Laurelesvin Samuels [facility] & [place] 03/11/2023 15:30:36 excision of colon completed Loree Tadeo [facility] & [place] 04/21/2023 11:32:07 Imaging Results None recorded. Procedure Notes None recorded. Medical Equipment None Reported. Allergies Allergen ID Allergen Name Allergen Category Reaction Reaction Severity Criticality Documentation Date Start Date Code Code System Note Provider Name and Address Organization Details Recorded Time 13290 tetracycl ine medicatio n hives Not available high 02/19/2023 29439 RxNorm [facility]andy [facility] [place] 14:03:33 Medications Name Sig Start Date Stop [...] Updated DateTime 5 162.56 cm 33.5 kg/m2 02792.5 1 g 97.6 [degF] 98 % 98 % 75 /min 185 mm[Hg] 79 mm[Hg] Laurel Samuels [facility] & [place] 13:16:39 Social History Question Answer Notes LastModified by GoEuro Details LastModified Time Tobacco Smoking Status Never Smoker Brandy yusuf, [facility] & [place] 02/19/2023 14:02:59 What Is Your Level Of Caffeine Consumption? None [email or web address] Information not available 02/19/2023 What Was The Date Of Your Most Recent Tobacco Screening? 11/23/2023 [email or web address] Information not available 11/23/2023 Has Tobacco Cessation Counseling Been Provided? No [email or web address] Information not available 07/13/2023 Sex: Unknown Functional Status Question Answer Note LastModified by Organizat ion Details LastModified Time Do you use any illicit or recreational drugs? No [email or web address] Information not available 02/19/2023 Do you or have you ever used any other forms of tobacco or nicotine? No [email or web address] Information not available 02/19/2023 What is your level of alcohol consumption? None [email or web address] Information not available 02/19/2023 Mental Status None recorded. Family History Nothing Reported. Medical History No medical history recorded. Gynecological HistoryNo gynecological history recorded. Obstetrics History GPAL:G 0 P 0 0 0 0 Immunizations Vaccine Type Date Status Note Provider Nam e and Address Organization Details Recorded Time pneumococcal polysaccharide PPV23 7 completed Stephanie Maravilla [facility] & [place] 12/21/2023 09:56:34 Past Encounters Encounter ID Performer Location Encounter Start Date Encounter Closed Date Diagnosis/Indication Diagnosis SNOMED-CT Code Diagnosis ICD10 Code Diagnosis Note [id number] Hanna Snider PA-C [facility] [address] [facility] [address] [place] [address] 11/01/2024 13:00:10 11/01/2024 13:35:08 Antineoplastic chemotherapy regimen 792021627 Z51.11 Week 1 5FU Leucovorin Vectibix on [...] 25, 2024. Malignant tumor of ascending colon 979753200 C18.2 CT scan of the abdomen and [...] 8.2 hematocrit 29.0. MCV 67.9. Platelet count 878333. Normal cell differenti al. Low serum folate [...] study published in September 2022 in the [place] Journal Medicine of combined Avastin therapy with [...] malignancy . Metastatic malignant neoplasm to liver 57743234 C78.7 CT scan of the abdomen and [...] any treatment for her malignancy . Nausea 265021449 R11.0 As needed Zofran and Phenergan prescribed [...] ons. Pain due t o neoplastic disease 0262378046 9102 G89.3 Abdominal pain has improved and pain is controlled with current pain medication s. Anemia 608279766 D64.9 Right-side d colon mass concerning for malignancy . Will assess for any signs of iron deficiency . Hemoglobin previously 8.0. Concern for blood loss from colon mass. Patient reports dark stools. Labs on August 10, 2024 with hemoglobin slightly low at 11.9. She is receiving infusional iron as needed. Adopted 862669474 Z62.89 8 Patient is adopted and discussed hereditary gene panel. Patient does have family history of her son having bladder cancer. [facility] hereditary panel sent Hypokalemia 69204248 E87 .6 Currently taking for potassium 20 mEq daily. Will follow up labs. 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 [...] reports depression has improved. Atopic conjunctivitis 23 4345619 H10.12 Conjunctiv itis due to Vectibix. This has improved. Iron defic iency anemia 30486537 D50.9 Receiving infusional iron as needed. Will continue to monitor. Insomnia 618150778 G47.0 0 Patient has had difficulty sleeping for most of her life. She has tried multiple medication s without relief. She is tried Mirtazapin e and lorazepam without improvemen t of insomnia. Discussed trying trazodone instead. Restless legs 66798196 G 25.81 Patient taking Requip for restless legs. Generalized rash 0676328 06 R21 Rash due to Vectibix. This has improved. Atrial fibrillation 4943 6004 I48.91 Patient has been diagnosed with congestive heart failure and atrial fibrillati on. She has been started on Coumadin. She is following with the Coumadin clinic at [facility]. Congestive heart failure 74867416 I50.9 Patient has been diagnosed with congestive heart failure. She has started lasix and is following with a cardiologi st. Cachexia 430343292 R64 Patient has had decreased appetite and weight loss. She is drinking nutritiona l supplement s. Discussed appetite stimulant. Patient previously refused. She has started on Megace. She does not like the taste of Megace. Discussed Megace tablets instead of liquid but patient declines at this time. Will continue to monitor History of deep vein thrombosis 716290270 Z86.718 Patient developed right lower extremity pain [...] repeat venous duplex. Drug therapy finding 309 823601 Z79.01 She continues on Coumadin due to a fib. She is following with the Coumadin clinic at [facility]. Candidiasis of skin 4988 3006 B37.2 Patient [...] Name 11/01/2024 1 [place] Vicky Roblero [id number] Vicky Roblero 11/01/2024 2 [employer] (MEDICARE SUPPLEMENT) Vicky Roblero [id number] Vicky Roblero Notes Date Note Type Note Provider Name and Address Organization Details Recorded Time 11/01/2024 text/html 79 yo F returns for evaluation of metastatic colon cancer. Patient recently seen on February 17, 2023 in the emergency room at [facility] with abdominal pain. Patient reported [...] 8.2 hematocrit 29.0. MCV 67.9. Platelet count 476111. Normal cell differential. Low serum folate of [...] with metastatic colorectal cancer. Discussed chemotherapy with [place] based regimen with 5FU Leucovorin if [...] with the Coumadin clinic at [facility]. She is scheduled for cardiac MRI. Patient [...] study published in September 2022 in the [place] Journal Medicine of combined Avastin therapy with [...] to have if needed. Hanna Snider PA-C [address], [place], [address], [facility] - [facility] - [place] & [place] 11/01/2024 13:57:44 OBGyn Episode No OBEpisode recorded.
--- OUTSIDE RECORDS SUMMARY | 2024-11-24 11:15 | XMS_ITS | Encounter Summary ---
Author Organization [place] [address] Care Team Providers Care On Air Personality Name Role Phone Luis Villasenor MD Unavailable [phone] Luis Villasenor MD Primary Care Provider Encounter Details Date Type Department Care Team (Late Contact Info) Description 11/11/2024 Orders Only SEP Sarah [address] [place] [id number] Amarilis Nolan, ARCHITECTURAL TECHNOLOGIST [address] [place] [address] Flank pain (Primary Dx); Blood loss; [...] and maintain an ideal body weight General Grcae Avila CMA Stay Tobacco Free Lifestyle Grace [...] 3:44 PM EDT [facility] Dodge Percent 8.3 % 11/14/2024 3:44 PM EDT [facility] Eos Percent 3.5 % 11/14/2024 3:44 PM EDT [facility] Baso Percent 0.6 % 11/14/2024 3:44 PM EDT [facility] Neut # 7.7(H) 1.6 - 6.1 x10(3)/mcL 11/14/2024 3:44 PM EDT [facility] Comment:Neutrophils equals s egs plus bands IMMGRAN# 0.1 0.0 - 0.1 x10(3)/[facility] 11/14/2024 3:44 PM EDT [facility] Comment:Automated count of m etamyelocytes, myelocytes and promyelocytes. An absolute IG <0.1 is reported as 0.0. Lymph # 1.0(L) 1.2 - 3.9 x10(3)/[facility] 11/14/2024 3:44 PM EDT [facility] Dodge # 0.8 0.3 - 0.9 x10(3)/[facility] 11/14/2024 3:44 PM EDT [facility] Eos# 0.4 0.0 - 0.5 x10(3)/[facility] 11/14/2024 3:44 PM EDT [facility] Baso # 0.1 0.0 - 0.1 x10(3)/[facility] 11/14/2024 3:44 PM EDT [facility] Blood VENOUS BLOOD / Unknown Venipuncture / Unknown 11/14/2024 10:07 AM EDT 11/14/2024 10:07 AM EDT Amarilis Nolan ARCHITECTURAL TECHNOLOGIST HEMATOLOGY ORDERABLES Fin al Result [facility] [address] [facility] , [place] [address] * (ABNORMAL) COMPREHENSIVE METABOLIC PANEL (11/14/2024 10:07 AM EDT) Sodium 133(L) 136 - 145 mmol/L 11/14/2024 4:07 PM EDT [facility] Potassium 4.5 3.5 - 5.0 mmol/L 11/14/2024 4:07 PM EDT [facility] Chloride 94(L) 98 - 107 mmol/L 11/14/2024 4:07 PM EDT [facility] Total CO2 29 22 - 29 mmol/L 11/14/2024 4:07 PM EDT [facility] Anion Gap 10 7 - 16 mmol/L 11/14/2024 4:07 PM EDT [facility] Calcium 9.2 8.8 - 10.4 mg/dL 11/14/2024 4:07 PM EDT [facility] Glucose Lvl 122(H) 70 - 99 mg/dL 11/14/2024 4:07 PM EDT [facility] BUN 15 8 - 23 mg/dL 11/14/2024 4:07 PM EDT [facility] Creatinine 1.38(H) 0.51 - 1.30 mg/dL 11/14/2024 4:07 PM EDT [facility] Albumin 3.4 3.2 - 4.6 gm/dL 11/14/2024 4:07 PM EDT [facility] Total Protein 7.8 6.4 - 8.3 gm/dL 11/14/2024 4:07 PM EDT [facility] Bili Total 0.6 0.2 - 1.3 mg/dL 11/14/2024 4:07 PM EDT [facility] ALT <5 <=41 U/L 11/14/2024 4:07 PM EDT [facility] AST 23 <=40 U/L 11/14/2024 4:07 PM EDT [facility] Alk Phos 465(H) 36 - 123 U/L 11/14/2024 4:07 PM EDT [facility] eGFR (CKD-EPIcr 2020) 39(L) >=60 mL/min/1.7 3 m2 11/14/2024 4:07 PM EDT [facility] Comment:Estimated GFR was ca lculated using the CKD-EPIcr (2020) equation refit without race. The equation is recommended by the National Kidney Foundation - [place] [employer] of Nephrology Task Force. Blood VENOUS BLOOD / Unknown Venipuncture / Unknown 11/14/2024 10:07 AM EDT 11/14/2024 10:07 AM EDT us Amarilis Nolan ARCHITECTURAL TECHNOLOGIST CHEMISTRY ORDERABLES Kell orlando Result [facility] [address] [facility] , [address] [place], [place] [id number] documented in this encounter Visit Diagnoses Diagnosis Flank pain- Primary Abdominal pain, unspecified site Blood loss Hemorrhage, unspecified Dehydration documented in this encounter Additional Health Concerns Assessment Noted Time A fall risk assessment has been complete d for the patient 06/14/2024 9:03 AM EST documented as of this encounter Care Teams On Air Personality Relationship Specialty Start Date End Date Luis Villasenor MD [address] [place] [address] PCP - OBGYN 01/09/10 Luis Villasenor MD [address] [place] [address] PCP - General 01/09/10 documented as of this encounter
--- OUTSIDE RECORDS SUMMARY | 2024-11-24 11:15 | XMS_ITS | Encounter Summary ---
Author Organization [place] [address] Care Team Providers Care Ventilation Mechanic Name Role Phone Luis Villasenor MD Unavailable [phone] Luis Villasenor MD Primary Care Provider [phone] Reason for Visit * Reason Onset Date Comments 911/Red Flag 09/19/2024 possible blood c lot Encounter Details Date Type Department Care Team (Late st Contact Info) Description 09/19/2024 Nurse Triage SEP Sarah [facility] [address] Luis Villasenor MD [address] [facility] [place] [address] Peripheral edema (Primary Dx) Social History [...] 124/78(2024 9:10 AM EDT) No Nyla, Grace, SALES ENGAGEMENT EXECUTIVE Maintain a healthy diet, exercise regularly and [...] documented as of this encounter Care Teams Ventilation Mechanic Relationship Specialty Start Date End Date Luis Villasenor MD [address] [facility] [place] [address] PCP - OBGYN 01/09/10 Luis Villasenor MD [address] [facility] [address] PCP - General 01/09/10 documented as of this encounter
--- OUTSIDE RECORDS SUMMARY | 2024-11-24 11:15 | XMS_ITS | Encounter Summary ---
Author Organization [place] [address] Care Team Providers Care Early Childhood Education Specialist Name Role Phone Luis Villasenor MD Unavailable [phone] Luis Villasenor MD Primary Care Provider [phone] Reason for Visit * Reason Onset Date Comments Other 11/01/2024 Encounter Details Date Type Department Care Team (Late Contact Info) Description 11/01/2024 Telephone SEP Sarah [address] [place] [address] Luis Villasenor MD [address] [place] [address] Other Social History Tobacco Use Types [...] Redmond CMA Stay Tobacco Free Lifestyle No Grcae Redmond CMA documented as of this encounter Visit Diagnoses Not on filedocumented in this encounter Additional Health Concerns Assessment Noted Time A fall risk assessment has been complete d for the patient 06/14/2024 9:03 AM EST documented as of this encounter Care Teams Early Childhood Education Specialist Relationship Specialty Start Date End Date Luis Villasenor MD [address] [place] [phone] PCP - OBGYN 01/09/10 Luis Villasenor MD [address] [place] [phone] PCP - General 01/09/10 documented as of this encounter
--- OUTSIDE RECORDS SUMMARY | 2024-11-24 11:15 | XMS_ITS | Encounter Summary ---
Author Organization [place] [address] Care Team Providers Care Director Of Provider Relations Name Role Phone Luis Villasenor MD Unavailable [phone] Luis Villasenor MD Primary Care Provider Reason for Visit * Reason Onset Date Comments Orders 09/22/2024 personal touch h [facility] care Encounter Details Date Type Department Care Team (Late st Contact Info) Description 09/22/2024 Telephone SEP Sarah [facility] [place] [address] Luis Villasenor MD [address] [facility] [place] [address] Orders (personal touch home care) Social [...] lois ) What Orders are being requested: Senior Living Reason Orders are Needed (Diagnosis): check over vital - head to toe assessment and medication education Is a verbal order being requested: Yes If non-[facility], where should the order be faxed [...] documented as of this encounter Care Teams Director Of Provider Relations Relationship Specialty Start Date End Date Luis Villasenor MD [address] [place] [address] PCP - OBGYN 01/09/10 Luis Villasenor MD [address] [place] [phone] PCP - General 01/09/10 documented as of this encounter
--- OUTSIDE RECORDS SUMMARY | 2024-11-24 11:15 | XMS_ITS | Encounter Summary ---
Author Organization [place] [address] Care Team Providers Care Pet Care Worker Name Role Phone Luis Villasenor MD Unavailable [phone] Luis Villasenor MD Primary Care Provider [phone] Reason for Visit * Reason Onset Date Comments Relaying Information 10/26/2024 Reporting n ew issues with pain. Encounter Details Date Type Department Care Team (Late st Contact Info) Description 10/26/2024 Telephone SEP Sarah [facility] [place] [address] Luis Villasenor MD [address] [facility] [place] [address] Relaying Information (Reporting new issues with [...] documented as of this encounter Care Teams Pet Care Worker Relationship Specialty Start Date End Date Luis Villasenor MD [address] [place] [address] PCP - OBGYN 01/09/10 Luis Villasenor MD [address] [facility] [place] [phone] PCP - General 01/09/10 documented as of this encounter
--- OUTSIDE RECORDS SUMMARY | 2024-11-24 11:15 | XMS_ITS | Encounter Summary ---
Author Organization [place] [address] Care Team Providers Care Court Supervisor Name Role Phone Luis Villasenor MD Unavailable [phone] Luis Villasenor MD Primary Care Provider Encounter Details Date Type Department Care Team (Late Contact Info) Description 10/26/2024 Orders Only SEP Sarah [address] [place] [phone] Amarilis Nolan, IRRIGATION MANAGER [address] [place] [address] Flank pain (Primary Dx) Social History [...] EDT 10/26/2024 11:17 AM EDT Amarilis Nolan IRRIGATION MANAGER MICROBIOLOGY - GENERAL OR DERABLES Final Result [facility] [address] [facility] , [place] [address] * (ABNORMAL) COMPREHENSIVE METABOLIC PANEL (10/26/2024 11:03 [...] 10/26/2024 4:28 PM EDT [facility] AST 28 <=40 U/L 10/26/2024 4:28 PM EDT [facility] Alk Phos 259(H) 36 - 123 U/L 10/26/2024 4:28 PM EDT [facility] eGFR (CKD-EPIcr 2020) 43(L) >=60 mL/min/1.7 3 m2 10/26/2024 4:28 PM EDT [facility] Comment:Estimated GFR was ca lculated using the CKD-EPIcr (2020) equation refit without race. The equation is recommended by the National Kidney Foundation - [place] [employer] of Nephrology Task Force. Blood VENOUS BLOOD / Unknown Venipuncture / Unknown 10/26/2024 11:03 AM EDT 10/26/2024 11:03 AM EDT Amarilis Nolan IRRIGATION MANAGER CHEMISTRY ORDERABLES Kell orlando Result [facility] [address] [facility] , [place] [address] documented in this encounter Visit Diagnoses Diagnosis Flank pain- Primary Abdominal pain, unspecified site documented in this encounter Additional Health Concerns Assessment Noted Time A fall risk assessment has been complete d for the patient 06/14/2024 9:03 AM EST documented as of this encounter Care Teams Court Supervisor Relationship Specialty Start Date End Date Luis Villasenor MD [address] [place] [address] PCP - OBGYN 01/09/10 Luis Villasenor MD [address] [place] [address] PCP - General 01/09/10 documented as of this encounter
--- OUTSIDE RECORDS SUMMARY | 2024-11-24 11:15 | XMS_ITS | Clinical Summary ---
Author Organization [facility] Address [address] [place] [address] Phone Care Team Providers Care Cut Out Machine Operator Name Role Phone Luis Villasenor MD Unavailable [phone] Luis Villasenor MD Primary Care Provider Allergies [...] early 2024 per patient decision Managed by [facility] Oncology and Hematology Assessment & Plan (10/02/2024 10:12 PM EDT): - has active disease - managed by Oncology -has stopped treatment 07/2024 Assessment & Plan (06/14/2024 9:41 PM EST): - has active disease - currently undergoing chemotherapy / immunotherapy - managed by Oncology, [facility] Oncology and Hematology Malignant tumor of ascending colon 06/14/2024 Overview (06/14/2024): CT scan 01/2023 with multiple masses of liver and ascending colon thickening. 04/2023, R hemicolectomy and anastomosis, pathology of invasive moderately differentiated adenocarcinoma. Metastatic adenocarcinoma in 2/10 lymph nodes. Wedge resection of the liver with metastatic adenocarcinoma consistent with colon primary. Continues with chemotherapy [id number]. Managed by [facility] Oncology and Hematology Assessment & Plan (10/02/2024 10:12 PM EDT): - has active disease - managed by Oncology -has stopped treatment 07/2024 Assessment & Plan (06/14/2024 9:41 PM EST): - has active disease - currently undergoing chemotherapy / immunotherapy - managed by Oncology, [facility] Hematology terminologist (current) use of anticoagulants 2024 Overview (10/02/2024): Coumadin therapy, Afib Assessment & Plan (10/02/2024 10:12 PM EDT): On coumadin therapy, managed by the coumadin clinic at [facility], Dr. Youngblood, cardiology. Taking 5mg M// and 2.5mg other days Paroxysmal atrial fibrillation 06/14/2024 Overview (06/14/2024): Dr. Youngblood, cardiology, [facility] Assessment & Plan (10/02/2024 10:12 PM EDT): [...] new coumadin start today Medication Management: - [id number] score considered in medication management decisions at [...] Living will, counseling/discussion 03/30/2015 Overview (02/09/2020): Declines custodial vent support and custodial hydration and nutrition via feeding tube or [...] glucose tolerance) Overview (03/30/2015): Calorie restrict attempt 9404-1823 calories per day. 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) (Primary Dx); History of DVT (deep vein thrombosis); Paroxysmal atrial fibrillation (HCC); Cobalamin deficiency; Flank pain; Dehydration; Blood loss 11/11/2024 Orders Only [address] [place] [address] Amarilis Nolan, MIGUEL ANGEL Flank pain (Primary Dx); Blood loss; Dehydration 11/04/2024 11:15 AM EDT Office Visit [address] [place] [address] Amarilis Nolan, MIGUEL ANGEL Diverticulitis of large intestine without perforation or abscess without bleeding (Primary Dx); Peripheral edema; Malignant tumor of ascending colon (HCC); 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 ///) 10/11/[address] [place] [address] Luis Villasenor MD Other (FYI- pt is wanting palliative care, home health asking if pcp would like to do this. 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); terminologist (current) use of anticoagulants 09/22/[address] [place] [address] Luis Villasenor MD Orders (personal touch home care) 09/19/2024 Nurse Triage [address] [place] [address] Luis Villasenor MD Peripheral edema (Primary Dx) 09/13/2024 Telephone [facility] [address] [address] Cayden Nagel MD Results 09/12/[address] [place] [address] Amarilis Nolan APRN Other (Calling with INR results from ); Patient Returning Call (Check status of INR message); Follow Up ( requesting call back from office with patient's temple meat cutter 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 Please advise) from Last 3 Months [...] LENS; Surgeon: Keith Lynn MD; Location: [facility]; Service: Ophthalmology Medical devices from this surgery are in the Medical Devices section. CATARACT REMOVAL 08/03/2013 Eye/Right RIGHT EYE CATARACT EXTRACTION WITH PHACOEMULSIFICATION AND INTRAOCULAR LENS ; Surgeon: Keith Lynn MD; Location: [facility]; Service: Ophthalmology Medical devices from this [...] [place] [facility] Medical Devices Implanted Type Area Train Announcer Device Identifier Shelf Expiration Date Model / Serial / Lot Lens Intraocular 23.0 Diopter Acrysof Iq 13.0mm Length 6.0mm - [id number] Implanted:Qty: 1 on 07/09/2013 by Keith Lynn MD at [facility] Left: Eye [facility]URG 01/30/2018 [id number]. 0 / [id number] / Lens Intraocular 23.5 Diopter Acrysof Iq 13.0mm Length 6.0mm - [id number] Implanted:Qty: 1 on 08/03/2013 by Keith Lynn MD at [facility] Right: Eye [facility]:SURG 03/01/2018 [id number]. [id number] / [id number] / Procedures Procedure Name Priority Date/Time [...] mcg/dL 11/14/2024 4:07 PM EDT [facility] Transferrin 153(L) 200 - 360 mg/dL 11/14/2024 4:07 PM EDT [facility] Transferrin Saturation 12(L) 20 - 50 % 11/14/2024 4:07 PM EDT [facility] TIBC 214(L) 250 - 400 mcg/dL 11/14/2024 4:07 PM EDT [facility] Blood VENOUS BLOOD / Unknown Venipuncture / Unknown 11/14/2024 10:07 AM EDT 11/14/2024 10:07 AM EDT us Amarilis Nolan MANAGER INTERNATIONAL CHEMISTRY ORDERABLES Kell l Result [facility] [address] [facility] , [place] [address] * VITAMIN B12/ FOLIC ACID (11/14/2024 10:07 AM EDT) Vitamin B12 801 232 - 1,245 pg/mL 11/14/2024 4:02 PM EDT [facility] Folate 9.89 >=4.80 ng/mL 11/14/2024 4:02 PM EDT [facility] Blood VENOUS BLOOD / Unknown Venipuncture / Unknown 11/14/2024 10:07 AM EDT 11/14/2024 10:07 AM EDT Narrative [facility] - 11/14/2024 4:02 PM EDT Ingestion of rocio doses of biotin (>5 mg/day) taken within 8 hours of drawing blood sample can interfere with this immunoassay test. us Amarilis Nolan APRN CHEMISTRY ORDERABLES Kell orlando Result [facility], [facility] [address] [facility] , [address] [place] [id number] * (ABNORMAL) CBC WITH DIFF (11/14/2024 10:07 AM EDT) WBC 10.0 3.7 - 10.3 x10(3)/mcL 11/14/2024 3:44 PM EDT [facility] RBC 3.50(L) 3.90 - 5.20 x10(6)/mcL 11/14/2024 3:44 PM EDT [facility] Hgb 9.9(L) 11.2 - 15.7 g/dL 11/14/2024 3:44 PM EDT [facility] Hct 32.6(L) 34.0 - 45.0 [...] EDT [facility] [place] Percent 8.3 % 11/14/2024 3:44 PM EDT [facility] Eos Percent 3.5 % 11/14/2024 3:44 PM EDT [facility] Baso Percent 0.6 % 11/14/2024 3:44 PM EDT [facility] Neut # 7.7(H) 1.6 - 6.1 x10(3)/[facility] 11/14/2024 3:44 PM EDT [facility] Comment:Neutrophils equals s egs plus bands IMMGRAN# 0.1 0.0 - 0.1 x10(3)/[facility] 11/14/2024 3:44 PM EDT [facility] Comment:Automated count of m etamyelocytes, myelocytes and promyelocytes. An absolute IG <0.1 is reported as 0.0. Lymph # 1.0(L) 1.2 - 3.9 x10(3)/[facility] 11/14/2024 3:44 PM EDT [facility] [place] # 0.8 0.3 - 0.9 x10(3)/[facility] 11/14/2024 3:44 PM EDT [facility] Eos# 0.4 0.0 - 0.5 x10(3)/[facility] 11/14/2024 3:44 PM EDT [facility] Baso # 0.1 0.0 - 0.1 x10(3)/[facility] 11/14/2024 3:44 PM EDT [facility] Blood VENOUS BLOOD / Unknown Venipuncture / Unknown 11/14/2024 10:07 AM EDT 11/14/2024 10:07 AM EDT Amarilis Nolan APRN HEMATOLOGY ORDERABLES Fin al Result Performing Organization Address [facility] Co de Phone Number [facility] [address] , [address] [place] [id number] * (ABNORMAL) FERRITIN (11/14/2024 10:07 AM EDT) Ferritin 728(H) 30 - 150 ng/mL 11/14/2024 4:07 PM EDT [facility] Comment:The lower threshold of [...] EDT 11/14/2024 10:07 AM EDT Narrative [facility] - 11/14/2024 4:07 PM EDT Ingestion of rocio doses of biotin (>5 mg/day) taken within 8 hours of drawing blood sample can interfere with this immunoassay test. Amarilis Nolan APRN CHEMISTRY ORDERABLES Kell l Result Performing Organization Address [facility] de Phone Number [facility] [address] , [place] [address] * (ABNORMAL) COMPREHENSIVE METABOLIC PANEL (11/14/2024 10:07 AM EDT) Only the most recent of2 resultswithin the time period is included. Sodium 133(L) 136 - 145 mmol/L 11/14/2024 4:07 PM EDT [facility] Potassium 4.5 3.5 - 5.0 mmol/L 11/14/2024 4:07 PM EDT [facility] Chloride 94(L) 98 - 107 mmol/L 11/14/2024 [...] EDT [facility] Total Protein 7.8 6.4 [...] recommended by the National Kidney Foundation - [employer] of Nephrology Task Force. Blood VENOUS BLOOD / Unknown Venipuncture / Unknown 11/14/2024 10:07 AM EDT 11/14/2024 10:07 AM EDT Amarilis Nolan APRN CHEMISTRY ORDERABLES Kell l Result Performing Organization Address [facility]/ZIP Co de Phone Number [facility] [address] [place] [address] , [place] [address] * URINE CULTURE (NO STAIN) (10/26/2024 11:17 AM EDT) Culture Multiple bacterial species isolated from urine consistent with urogenital commensal organisms. 10/27/2024 10:23 PM EDT [facility] Urine STRUCTURE OF URINARY TRACT PROPER / Unknown 10/26/2024 11:17 AM EDT 10/26/2024 11:17 AM EDT Amarilis Nolan APRN MICROBIOLOGY - GENERAL OR DERABLES Final Result Performing Organization Address [facility] Co de Phone Number [facility] [address] [facility] , [place] [address] * (ABNORMAL) SEP URINALYSIS POC [...] ORDERABLES Fi nal Result Performing Organization Address [facility] Co de Phone Number [facility] [place] [address] [place] [address] * (ABNORMAL) HEMOGLOBIN A1C (09/08/2022 2:38 PM EDT) Hgb A1C 7.3(H) 4.2 - 5.6 % 09/08/2022 8:16 PM EDT [facility] Est. Avg Glucose 163 mg/dL 09/08/2022 8:16 PM EDT [facility] Blood VENOUS BLOOD / Unknown Venipuncture / Unknown 09/08/2022 2:38 PM EDT 09/08/2022 2:38 PM EDT Narrative [facility] - 09/08/2022 8:16 PM EDT REFERENCE RANGE: Normal: 4.0-5.6% Pre-diabetes: 5.7-6.4% Provisional diagnosis of diabetes: >6.4% Hgb F>10% and anything which shortens red cell survival, such as hemolytic anemia, or unstable hemoglobin variants such as HbSS, HbSC, or HbCC, will lower the HbA1c value associated with a given level of glycemic control. us Luis Villasenor MD CHEMISTRY ORDERABLES Final Result Performing Organization Address [facility] Co de Phone Number [facility] [address] [facility] , [place] [address] * LIPID PANEL REFLEX (02/09/2020 9:38 AM EDT) Cholesterol 157 <200 mg/dL 02/09/2020 4:17 PM EDT [facility] Comment: < 200 Desirable 200 - 239 Borderline High >= 240 High Triglyceride 85 <150 mg/dL 02/09/2020 4:17 PM EDT [facility] Comment: < 150 Normal 150 - 199 Borderline High 200 - 499 High >= 500 Very High HDL 41 >=40 mg/dL 02/09/2020 4:17 PM EDT [facility] Comment: > 60 Optimal 40 - 60 Acceptable < 40 Low LDL Calculated 99 <100 mg/dL 02/09/2020 4:17 PM EDT [facility] Non-HDL-C Calculated 116 <=129 mg/dL 02/09/2020 4:17 PM EDT [facility] Comment: <130 Desirable 130-159 Above Desirable 160-189 Borderline High 190-219 High >= 220 Very High Fasting Specimen? Yes None 020 4:17 PM EDT [facility] Blood VENOUS BLOOD / Unknown Venipuncture / Unknown 02/09/2020 9:38 AM EDT 02/09/2020 9:42 AM EDT Luis Villasenor MD CHEMISTRY ORDERABLES Final Result Performing Organization Address [facility]/ZIP Co de Phone Number [facility], [facility] [address] [facility] [address], [place] [address] * HEPATITIS C ANTIBODY - SCREENING (12/04/2016 11:16 AM EDT) Hep C Ab Negative Negative [facility] Blood specimen (specimen) UPPER LIMB STRUCTURE / Unknown 12/04/2016 11:16 AM EDT 12/04/2016 4:52 PM EDT Luis Villasenor MD HEMATOLOGY ORDERABLES Final Result Performing Organization Address [facility] Co de Phone Number [facility] [address] [place] [address] from Last 3 Months or Most Recently Relevant to Health Maintenance Insurance MEDICARE [place] PART A AND B [employer] [facility] MED[place] [place] PART A AND B [employer] AD[employer] A[employer]NA SENIOR [id number] INS MEDICARE [place] PART A AND B [facility] ADMINISTRATORS [facility] [address] [place] [address] Advance Directives For more information, please contact: [phone] * Full Code (Latest Code Status on File) Date Activated Date Inactivated Comments 10/28/2018 11:51 AM 10/28/2018 9:26 PM Care Teams Cut Out Machine Operator Relationship Specialty Start Date End Date Luis Villasenor MD [address] [place] [address] PCP - OBGYN 01/09/10 Luis Villasenor MD [address] [place] [address] PCP - General 01/09/10
--- OUTSIDE RECORDS SUMMARY | 2024-11-24 11:15 | XMS_ITS | Encounter Summary ---
Author Organization [place] [address] Care Team Providers Care Facetor Name Role Phone Luis Villasenor MD Unavailable [phone] Luis Villasenor MD Primary Care Provider Reason for Visit * Reason Onset Date Comments Other 10/11/2024 FYI- pt is wanti palliative care, home health asking if pcp would like to do this. Encounter Details Date Type Department Care Team (Late st Contact Info) Description 10/11/2024 Telephone SEP Sarah [address] [place] [address] Luis Villasenor MD [address] [place] [address] Other (FYI- pt is wanting palliative [...] relationship to patient if not the patient): [facility] home health- Yarelis What is [...] documented as of this encounter Care Teams Facetor Relationship Specialty Start Date End Date Luis Villasenor MD [address] [place] [phone] PCP - OBGYN 01/09/10 Luis Villasenor MD [address] [place] [address] PCP - General 01/09/10 documented as of this encounter
--- OUTSIDE RECORDS SUMMARY | 2024-11-24 11:15 | XMS_ITS | Encounter Summary ---
Author Organization [place] [address] Care Team Providers Care Caving Guide Name Role Phone Luis Villasenor MD Unavailable [phone] Luis Villasenor MD Primary Care Provider [phone] Reason for Visit * Reason Onset Date Comments Orders 10/07/2024 VO for OT Encounter Details Date Type Department Care Team (Late Contact Info) Description 10/07/2024 Telephone SEP Sarah [facility] [address] [address] Luis Villasenor MD [address] [place] [address] Orders (VO for OT) Social History [...] a verbal order being requested: Yes If non-[facility], where should the order be [...] documented as of this encounter Care Teams Caving Guide Relationship Specialty Start Date End Date Luis Villasenor MD [address] [place] [phone] PCP - OBGYN 01/09/10 Luis Villasenor MD [address] [place] [phone] PCP - General 01/09/10 documented as of this encounter
--- OUTSIDE RECORDS SUMMARY | 2024-11-24 11:17 | XMS_ITS | Data Portability ---
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 Plan of Treatment Reminders Order Date Submit Date Provider Last Modified By Organization Details Last Modified Time Details Appointments OV EST 30 2024 11:00A M Hanna Fournier PA-C Not available Not available Not available OV EST 30 2024 11:00A M Hanna Fournier PA-C Not available Not available Not available Lab carcinoem bryonic Ag, quant, serum or plasma 2024 025 [email or web address] [facility], [address] [place], [address], 11/08/2024 10:04:49 CMP, serum or plasma 2024 025 [email or web address] [facility], [address] [place], [address], 11/01/2024 15:54:32 CBC w/ diff 2024 025 [email or web address] [facility], [address] [place], [address], 11/08/2024 10:04:49 culture, stool [address] [facility], [address] [place], [address], 09/09/2024 11:40:08 O&P (ova & parasites ), stool [address] [facility], [address] [place], [address], 09/09/2024 11:40:09 C diff screen, stool, reflex PCR [address] [facility], [address] [place], [address], 09/09/2024 11:40:09 CBC w/ auto diff 2024 025 [facility], [address] [place], [address], 09/02/2024 16:09:44 CMP, serum or plasma 2024 025 [facility], [address] [place], [address], 09/02/2024 14:45:24 CBC w/ auto diff 2024 025 [facility], [address] [place], [address], 08/25/2024 09:46:31 CMP, serum or plasma 2024 025 [facility], [address] [place] [address], [address], 08/25/2024 09:39:00 carcinoem bryonic Ag, quant, serum or plasma [address] [facility], [address] [place] [address], [address], 09/05/2024 09:16:06 Referral radiation oncologis t referral 2024 025 [email or web address] [address] Mary Valencia MD, [facility] [place], [address], 09/07/2024 08:24:10 Procedures None recorded. Surgeries None recorded. Imaging CT, head + brain, w/o contrast 2024 025 [email or web address] [facility] (Centralized Scheduling), [address], [place], [address], 09/02/2024 09:16:16 Medication Orders nystatin 100,000 unit/gram topical powder 2024 025 [facility], [address] [place], [address], 11/01/2024 13:56:59 ondansetr on 8 mg disintegr ating tablet [email or web address] [facility], [address] [place], [address], 09/02/2024 12:29:05 Pepcid 20 mg tablet 2024 025 [facility], [address] [place], [address], 11/01/2024 13:10:36 megestrol 400 mg/10 mL (40 mg/mL) oral suspensio n 2024 025 [email or web address] [facility], [address] [place], [address], 08/01/2024 11:59:15 Patient TargetsNo targets recorded. Patient InstructionsNo instructions recorded. Reason for Referral Referring Physician: Hanna Fournier, Hematology/Oncology, Encounter Date: 08/10/2024 Results Created Date Observation Date Name Description Value Unit Range Abnormal Flag Note LastModifiedBy Organization Detail LastModifiedTime 07/11/19 25 07/11/2024 CBC AUTO W DIFF WBC 6.9 K/uL 4.0-10 .5 Not Available [facility] ([facility]) [address], [place], [address], 07/11/2024 10:30:50 07/11/19 25 07/11/2024 CBC AUTO W DIFF RBC 3.8 M/mm3 4.2-6. 4 low Not Available [facility] ([facility]) [address] , [place], [address], 07/11/2024 10:30:50 07/11/19 25 07/11/2024 CBC AUTO W DIFF HGB 11.0 gm/dL 12.5-1 6.0 low Not Available [facility] ([facility]) [address] , [place], [address], 07/11/2024 10:30:50 07/11/19 25 07/11/2024 CBC AUTO W DIFF HCT 34.5 % 37.0-4 7.0 low Not Available [facility] ([facility]) [address] , [place], [address], 07/11/2024 10:30:50 07/11/19 25 07/11/2024 CBC AUTO W DIFF MCV 92.0 fL 78-100 Not Available [facility] ([facility]) [address] , [place], [address], 07/11/2024 10:30:50 07/11/19 25 07/11/2024 CBC AUTO W DIFF MCH 29.3 pg 27-31 Not Available [facility] ([facility]) [address] , [place], [address], 07/11/2024 10:30:50 07/11/19 25 07/11/2024 CBC AUTO W DIFF MCHC 31.9 g/dL 32-36 low Not Available [facility] ([facility]) [address] , [place], [address], 07/11/2024 10:30:50 07/11/19 25 07/11/2024 CBC AUTO W DIFF RDW 15.9 % 11.5-1 4.0 high Not Available [facility] ([facility]) [address] , [place], [address], 07/11/2024 10:30:50 07/11/19 25 07/11/2024 CBC AUTO W DIFF platelet count 267 K/uL 150-45 0 Not Available [facility] ([facility]) [address], [place], [address], 07/11/2024 10:30:50 07/11/19 25 07/11/2024 CBC AUTO W DIFF MPV 9.1 fL 6-9.5 Not Available [facility] ([facility]) [address], [place], [address], 07/11/2024 10:30:50 07/11/19 25 07/11/2024 CBC AUTO W DIFF neutrophil% 66.2 % 43-65 high Not Available [facility] ([facility]) [address], [place], [address], 07/11/2024 10:30:50 07/11/19 25 07/11/2024 CBC AUTO W DIFF lymphocyte% 18.6 % 20.5-4 5.5 low Not Available [facility] ([facility]) [address], [place], [address], 07/11/2024 10:30:50 07/11/19 25 07/11/2024 CBC AUTO W DIFF monocyte% 11.5 % 5.5-11 .7 Not Available [facility] ([facility]) [address] [place], [address], 07/11/2024 10:30:50 07/11/19 25 07/11/2024 CBC AUTO W DIFF eosinophil% 2.7 % 0.9-2. 9 Not Available [facility] ([facility]) [address] [place], [address], 07/11/2024 10:30:50 07/11/19 25 07/11/2024 CBC AUTO W DIFF basophil% 0.6 % 0.2-1. 0 Not Available [facility] ([facility]) [address] [facility], [place], [address], 07/11/2024 10:30:50 07/11/19 25 07/11/2024 CBC AUTO W DIFF immature granulocytes % 0.4 % 0.0-0. 8 Not Available [facility] ([facility]) [address] [place], [address], 07/11/2024 10:30:50 07/11/19 25 07/11/2024 CBC AUTO W DIFF nucleated red blood cells % 0.0 % Not Available [facility] ([facility]) [address] [place], [address], 07/11/2024 10:30:50 07/11/19 25 07/11/2024 CBC AUTO W DIFF neutrophil# 4.6 K/uL 2.2-4. 8 Not Available [facility] ([facility]) [address] [place], [address], 07/11/2024 10:30:50 07/11/19 25 07/11/2024 CBC AUTO W DIFF lymphocyte# 1.3 cell/ mcL 1.3-2. 9 Not Available [facility] ([facility]) [address] [place], [address], 07/11/2024 10:30:50 07/11/19 25 07/11/2024 CBC AUTO W DIFF monocyte# 0.8 cell/ mcL 0.3-0. 8 Not Available [facility] ([facility]) [address] [place], [address], 07/11/2024 10:30:50 07/11/19 25 07/11/2024 CBC AUTO W DIFF eosinophil# 0.2 cell/ mcL 0-0.2 Not Available [facility] ([facility]) [address] , [place], [address], 07/11/2024 10:30:50 07/11/19 25 07/11/2024 CBC AUTO W DIFF basophil# 0.0 cell/ mcL 0.0-1. 0 Not Available [facility] ([facility]) [address] , [place], [address], 07/11/2024 10:30:50 07/11/19 25 07/11/2024 CBC AUTO W DIFF immature gramulocytes # 0.03 K/uL Not Available [facility] ([facility]) [address] , [place], [address], 07/11/2024 10:30:50 07/11/19 25 07/11/2024 CBC AUTO W DIFF nucleated red blood cells # 0.00 K/uL Not Available [facility] ([facility]) [address] , [place], [address], 07/11/2024 10:30:50 07/11/19 25 07/11/2024 CBC AUTO W DIFF manual differential NO Not Available [facility] ([facility]) [address] , [place], [address], 07/11/2024 10:30:50 07/11/19 25 07/11/2024 COMP METAB OLIC PANEL sodium 137 mmol/ L 136-14 5 Not Available [facility] ([facility]) [address] , [place], [address], 07/11/2024 10:45:53 07/11/19 25 07/11/2024 COMP METAB OLIC PANEL potassium 3.4 mmol/ L 3.6-5. 0 low Not Available [facility] ([facility]) [address] , [place], [address], 07/11/2024 10:45:53 07/11/19 25 07/11/2024 COMP METAB OLIC PANEL chloride 100 mmol/ L 98-107 Not Available [facility] ([facility]) [address] , [place], [address], 07/11/2024 10:45:53 07/11/19 25 07/11/2024 COMP METAB OLIC PANEL carbon dioxide 28.2 mmol/ L 21.0-3 2.0 Not Available [facility] ([facility]) [address] , [place], [address], 07/11/2024 10:45:53 07/11/19 25 07/11/2024 COMP METAB OLIC PANEL anion gap 12.2 Not Available [facility] ([facility]) [address] , [place], [address], 07/11/2024 10:45:53 07/11/19 25 07/11/2024 COMP METAB OLIC PANEL glucose 208 mg/dL 70-120 high Not Available [facility] ([facility]) [address] , [place], [address], 07/11/2024 10:45:53 07/11/19 25 07/11/2024 COMP METAB OLIC PANEL BUN 16 mg/dL 7-18 Not Available [facility] ([facility]) [address] , [place], [address], 07/11/2024 10:45:53 07/11/19 25 07/11/2024 COMP METAB OLIC PANEL creatinine 1.2 mg/dL 0.6-1. 3 Not Available [facility] ([facility]) [address] , [place], [address], 07/11/2024 10:45:53 07/11/19 25 07/11/2024 COMP METAB [...] albrecht ing kiney funct ion. Not Available [facility] ([facility]) [address] , [place], [address], 07/11/2024 10:45:53 07/11/19 25 07/11/2024 COMP METAB OLIC PANEL total protein 6.6 g/dL 6.4-8. 2 Not Available [facility] ([facility]) [address] , [place], [address], 07/11/2024 10:45:53 07/11/19 25 07/11/2024 COMP METAB OLIC PANEL albumin 2.3 g/dL 3.4-5. 0 low Not Available [facility] ([facility]) [address] [facility], [place], [address], 07/11/2024 10:45:53 07/11/19 25 07/11/2024 COMP METAB OLIC PANEL globulin 4.3 Not Available [facility] ([facility]) [address] , [place], [address], 07/11/2024 10:45:53 07/11/19 25 07/11/2024 COMP METAB OLIC PANEL alb/glob ratio 0.5 0.7-2 low Not Available [facility] ([facility]) [address] , [place], [address], 07/11/2024 10:45:53 07/11/19 25 07/11/2024 COMP METAB OLIC PANEL calcium 8.9 mg/dL 8.5-10 .5 Not Available [facility] ([facility]) [address] , [place], [address], 07/11/2024 10:45:53 07/11/19 25 07/11/2024 COMP METAB OLIC PANEL bilirubin total 0.50 mg/dL 0.10-1 .00 Not Available [facility] ([facility]) [address] , [place], [address], 07/11/2024 10:45:53 07/11/19 25 07/11/2024 COMP METAB OLIC PANEL AST (SGOT) 50 U/L 0-37 high Not Available [facility] ([facility]) [address], [place], [address], 07/11/2024 10:45:53 07/11/19 25 07/11/2024 COMP METAB OLIC PANEL ALT (SGPT) 20 U/L 0-65 Not Available [facility] ([facility]) [address], [place], [address], 07/11/2024 10:45:53 07/11/19 25 07/11/2024 COMP METAB OLIC PANEL alk phosphatase 248 U/L 46-116 high Not Available [facility] ([facility]) [address], [place], [address], 07/11/2024 10:45:53 07/11/19 25 07/11/2024 MAGNE SIUM magnesium 2.3 mg/dL 1.8-2. 4 Not Available [facility] ([facility]) [address], [place], [address], 07/11/2024 10:45:56 07/11/19 25 07/11/2024 PT (PROT HROMB IN TIME) W INR prothrombin time 14.3 secon ds 9.3-11 .4 high Not Available [facility] ([facility]) [address], [place], [address], 07/11/2024 10:59:01 07/11/19 25 07/11/2024 PT (PROT [...] Mecha nical Heart Valve s Not Available [facility] ([facility]) [address] , [place], [address], 07/11/2024 10:59:01 07/11/19 25 07/12/2024 CEA cea 132.0 NG/mL 0.0-4. 7 high Nonsm okers <3.9 Smoke rs <5.6 . Lois Diagn ostic s Elect lois milum inesc ence Immun oassa y (ECLI A) . Value s obtai lexi with diffe rent assay metho ds or kits canno t be used inter albrecht eadavid . Resul ts canno t be inter prete d as absol doris evide nce of the prese nce or absen ce [facility] se. Perfo rmed at: [place] [address] Lab Direc tor: Tate staton PhD, Phone : [phone] Not Available [facility] ([facility]) [address] , [place], [address], 07/12/2024 13:09:06 07/25/19 25 07/25/2024 MAGNE SIUM magnesium 1.8 mg/dL 1.8-2. 4 Not Available [facility] ([facility]) [address] , [place], [address], 07/25/2024 10:51:25 07/25/19 25 07/25/2024 CBC AUTO W DIFF WBC 9.0 K/uL 4.0-10 .5 Not Available [facility] ([facility]) [address] , [place], [address], 07/25/2024 10:52:22 07/25/19 25 07/25/2024 CBC AUTO W DIFF RBC 4.3 M/mm3 4.2-6. 4 Not Available [facility] ([facility]) [address] , [place], [address], 07/25/2024 10:52:22 07/25/19 25 07/25/2024 CBC AUTO W DIFF HGB 12.6 gm/dL 12.5-1 6.0 Not Available [facility] ([facility]) [address], [place], [address], 07/25/2024 10:52:22 07/25/19 25 07/25/2024 CBC AUTO W DIFF HCT 39.6 % 37.0-4 7.0 Not Available [facility] ([facility]) [address] , [place], [address], 07/25/2024 10:52:22 07/25/19 25 07/25/2024 CBC AUTO W DIFF MCV 92.7 fL 78-100 Not Available [facility] ([facility]) [address], [place], [address], 07/25/2024 10:52:22 07/25/19 25 07/25/2024 CBC AUTO W DIFF MCH 29.5 pg 27-31 Not Available [facility] ([facility]) [address] , [place], [address], 07/25/2024 10:52:22 07/25/19 25 07/25/2024 CBC AUTO W DIFF MCHC 31.8 g/dL 32-36 low Not Available [facility] ([facility]) [address], [place], [address], 07/25/2024 10:52:22 07/25/19 25 07/25/2024 CBC AUTO W DIFF RDW 16.8 % 11.5-1 4.0 high Not Available [facility] ([facility]) [address] , [place], [address], 07/25/2024 10:52:22 07/25/19 25 07/25/2024 CBC AUTO W DIFF platelet count 234 K/uL 150-45 0 Not Available [facility] ([facility]) [address] , [place], [address], 07/25/2024 10:52:22 07/25/19 25 07/25/2024 CBC AUTO W DIFF MPV 9.2 fL 6-9.5 Not Available [facility] ([facility]) [address], [place], [address], 07/25/2024 10:52:22 07/25/19 25 07/25/2024 CBC AUTO W DIFF neutrophil% 70.3 % 43-65 high Not Available [facility] ([facility]) [address] , [place], [address], 07/25/2024 10:52:22 07/25/19 25 07/25/2024 CBC AUTO W DIFF lymphocyte% 16.5 % 20.5-4 5.5 low Not Available [facility] ([facility]) [address] , [place], [address], 07/25/2024 10:52:22 07/25/19 25 07/25/2024 CBC AUTO W DIFF monocyte% 7.0 % 5.5-11 .7 Not Available [facility] ([facility]) [address] [place], [address], 07/25/2024 10:52:22 07/25/19 25 07/25/2024 CBC AUTO W DIFF eosinophil% 5.3 % 0.9-2. 9 high Not Available [facility] ([facility]) [address] [place], [address], 07/25/2024 10:52:22 07/25/19 25 07/25/2024 CBC AUTO W DIFF basophil% 0.6 % 0.2-1. 0 Not Available [facility] ([facility]) [address] [facility], [place], [address], 07/25/2024 10:52:22 07/25/19 25 07/25/2024 CBC AUTO W DIFF immature granulocytes % 0.3 % 0.0-0. 8 Not Available [facility] ([facility]) [address] [facility], [place], [address], 07/25/2024 10:52:22 07/25/19 25 07/25/2024 CBC AUTO W DIFF nucleated red blood cells % 0.0 % Not Available [facility] ([facility]) [address] [facility], [place], [address], 07/25/2024 10:52:22 07/25/19 25 07/25/2024 CBC AUTO W DIFF neutrophil# 6.3 K/uL 2.2-4. 8 high Not Available [facility] ([facility]) [address] [facility], [place], [address], 07/25/2024 10:52:22 07/25/19 25 07/25/2024 CBC AUTO W DIFF lymphocyte# 1.5 cell/ mcL 1.3-2. 9 Not Available [facility] ([facility]) [address] [place], [address], 07/25/2024 10:52:22 07/25/19 25 07/25/2024 CBC AUTO W DIFF monocyte# 0.6 cell/ mcL 0.3-0. 8 Not Available [facility] ([facility]) [address] [place], [address], 07/25/2024 10:52:22 07/25/19 25 07/25/2024 CBC AUTO W DIFF eosinophil# 0.5 cell/ mcL 0-0.2 high Not Available [facility] ([facility]) [address], [place], [address], 07/25/2024 10:52:22 07/25/19 25 07/25/2024 CBC AUTO W DIFF basophil# 0.1 cell/ mcL 0.0-1. 0 Not Available [facility] ([facility]) [address], [place], [address], 07/25/2024 10:52:22 07/25/19 25 07/25/2024 CBC AUTO W DIFF immature gramulocytes # 0.03 K/uL Not Available [facility] ([facility]) [address], [place], [address], 07/25/2024 10:52:22 07/25/19 25 07/25/2024 CBC AUTO W DIFF nucleated red blood cells # 0.00 K/uL Not Available [facility] ([facility]) [address], [place], [address], 07/25/2024 10:52:22 07/25/19 25 07/25/2024 CBC AUTO W DIFF manual differential NO Not Available [facility] ([facility]) [address], [place], [address], 07/25/2024 10:52:22 07/25/19 25 07/25/2024 COMP METAB OLIC PANEL sodium 137 mmol/ L 136-14 5 Not Available [facility] ([facility]) [address], [place], [address], 07/25/2024 10:58:53 07/25/19 25 07/25/2024 COMP METAB OLIC PANEL potassium 3.7 mmol/ L 3.6-5. 0 Not Available [facility] ([facility]) [address], [place], [address], 07/25/2024 10:58:53 07/25/19 25 07/25/2024 COMP METAB OLIC PANEL chloride 100 mmol/ L 98-107 Not Available [facility] ([facility]) [address] , [place], [address], 07/25/2024 10:58:53 07/25/19 25 07/25/2024 COMP METAB OLIC PANEL carbon dioxide 25.4 mmol/ L 21.0-3 2.0 Not Available [facility] ([facility]) [address] , [place], [address], 07/25/2024 10:58:53 07/25/19 25 07/25/2024 COMP METAB OLIC PANEL anion gap 15.3 Not Available [facility] ([facility]) [address] , [place], [address], 07/25/2024 10:58:53 07/25/19 25 07/25/2024 COMP METAB OLIC PANEL glucose 169 mg/dL 70-120 high Not Available [facility] ([facility]) [address] , [place], [address], 07/25/2024 10:58:53 07/25/19 25 07/25/2024 COMP METAB OLIC PANEL BUN 17 mg/dL 7-18 Not Available [facility] ([facility]) [address] , [place], [address], 07/25/2024 10:58:53 07/25/19 25 07/25/2024 COMP METAB OLIC PANEL creatinine 0.9 mg/dL 0.6-1. 3 Not Available [facility] ([facility]) [address] , [place], [address], 07/25/2024 10:58:53 07/25/19 25 07/25/2024 COMP METAB [...] albrecht ing kiney funct ion. Not Available [facility] ([facility]) [address] [facility], [place], [address], 07/25/2024 10:58:53 07/25/19 25 07/25/2024 COMP METAB OLIC PANEL total protein 7.1 g/dL 6.4-8. 2 Not Available [facility] ([facility]) [address] [facility], [place], [address], 07/25/2024 10:58:53 07/25/19 25 07/25/2024 COMP METAB OLIC PANEL albumin 2.8 g/dL 3.4-5. 0 low Not Available [facility] ([facility]) [address] [facility], [place], [address], 07/25/2024 10:58:53 07/25/19 25 07/25/2024 COMP METAB OLIC PANEL globulin 4.3 Not Available [facility] ([facility]) [address] [facility], [place], [address], 07/25/2024 10:58:53 07/25/19 25 07/25/2024 COMP METAB OLIC PANEL alb/glob ratio 0.7 0.7-2 Not Available [facility] ([facility]) [address] [facility], [place], [address], 07/25/2024 10:58:53 07/25/19 25 07/25/2024 COMP METAB OLIC PANEL calcium 9.0 mg/dL 8.5-10 .5 Not Available [facility] ([facility]) [address] [facility], [place], [address], 07/25/2024 10:58:53 07/25/19 25 07/25/2024 COMP METAB OLIC PANEL bilirubin total 0.60 mg/dL 0.10-1 .00 Not Available [facility] ([facility]) [address] , [place], [address], 07/25/2024 10:58:53 07/25/19 25 07/25/2024 COMP METAB OLIC PANEL AST (SGOT) 33 U/L 0-37 Not Available [facility] ([facility]) [address] , [place], [address], 07/25/2024 10:58:53 07/25/19 25 07/25/2024 COMP METAB OLIC PANEL ALT (SGPT) 20 U/L 0-65 Not Available [facility] ([facility]) [address], [place], [address], 07/25/2024 10:58:53 07/25/19 25 07/25/2024 COMP METAB OLIC PANEL alk phosphatase 224 U/L 46-116 high Not Available [facility] ([facility]) [address], [place], [address], 07/25/2024 10:58:53 07/25/19 25 07/25/2024 PT (PROT HROMB IN TIME) W INR prothrombin time 27.2 secon ds 9.3-11 .4 high Not Available [facility] ([facility]) [address], [place], [address], 07/25/2024 11:01:05 07/25/19 25 07/25/2024 PT (PROT [...] Mecha nical Heart Valve s Not Available [facility] ([facility]) [address] , [place], [address], 07/25/2024 11:01:05 07/25/19 25 07/26/2024 CEA cea [...] t be inter prete d as absol doris evide nce of the prese nce or absen ce of [facility] . Perfo rmed at: [address], [place] [place] [id number] Lab Direc tor: Tate staton PhD, Phone : [phone] Not Available [facility] ([facility]) [address] , [place], [address], 07/26/2024 08:13:00 08/11/19 25 08/10/2024 CBC AUTO W DIFF WBC 10.3 K/uL 4.0-10 .5 Not Available [facility] ([facility]) [address] , [place], [address], 08/10/2024 10:33:28 08/11/19 25 08/10/2024 CBC AUTO W DIFF RBC 4.0 M/mm3 4.2-6. 4 low Not Available [facility] ([facility]) [address] , [place], [address], 08/10/2024 10:33:28 08/11/19 25 08/10/2024 CBC AUTO W DIFF HGB 11.9 gm/dL 12.5-1 6.0 low Not Available [facility] ([facility]) [address] , [place], [address], 08/10/2024 10:33:28 08/11/19 25 08/10/2024 CBC AUTO W DIFF HCT 36.4 % 37.0-4 7.0 low Not Available [facility] ([facility]) [address], [place], [address], 08/10/2024 10:33:28 08/11/19 25 08/10/2024 CBC AUTO W DIFF MCV 91.7 fL 78-100 Not Available [facility] ([facility]) [address], [place], [address], 08/10/2024 10:33:28 08/11/19 25 08/10/2024 CBC AUTO W DIFF MCH 30.0 pg 27-31 Not Available [facility] ([facility]) [address] , [place], [address], 08/10/2024 10:33:28 08/11/19 25 08/10/2024 CBC AUTO W DIFF MCHC 32.7 g/dL 32-36 Not Available [facility] ([facility]) [address], [place], [address], 08/10/2024 10:33:28 08/11/19 25 08/10/2024 CBC AUTO W DIFF RDW 16.3 % 11.5-1 4.0 high Not Available [facility] ([facility]) [address] , [place], [address], 08/10/2024 10:33:28 08/11/19 25 08/10/2024 CBC AUTO W DIFF platelet count 227 K/uL 150-45 0 Not Available [facility] ([facility]) [address] , [place], [address], 08/10/2024 10:33:28 08/11/19 25 08/10/2024 CBC AUTO W DIFF MPV 9.6 fL 6-9.5 high Not Available [facility] ([facility]) [address], [place], [address], 08/10/2024 10:33:28 08/11/19 25 08/10/2024 CBC AUTO W DIFF neutrophil% 71.2 % 43-65 high Not Available [facility] ([facility]) [address], [place], [address], 08/10/2024 10:33:28 08/11/19 25 08/10/2024 CBC AUTO W DIFF lymphocyte% 12.6 % 20.5-4 5.5 low Not Available [facility] ([facility]) [address] [facility], [place], [address], 08/10/2024 10:33:28 08/11/19 25 08/10/2024 CBC AUTO W DIFF monocyte% 6.6 % 5.5-11 .7 Not Available [facility] ([facility]) [address], [place], [address], 08/10/2024 10:33:28 08/11/19 25 08/10/2024 CBC AUTO W DIFF eosinophil% 8.6 % 0.9-2. 9 high Not Available [facility] ([facility]) [address], [place], [address], 08/10/2024 10:33:28 08/11/19 25 08/10/2024 CBC AUTO W DIFF basophil% 0.7 % 0.2-1. 0 Not Available [facility] ([facility]) [address], [place], [address], 08/10/2024 10:33:28 08/11/19 25 08/10/2024 CBC AUTO W DIFF immature granulocytes % 0.3 % 0.0-0. 8 Not Available [facility] ([facility]) [address] [place], [address], 08/10/2024 10:33:28 08/11/19 25 08/10/2024 CBC AUTO W DIFF nucleated red blood cells % 0.0 % Not Available [facility] ([facility]) [address] [facility], [place], [address], 08/10/2024 10:33:28 08/11/19 25 08/10/2024 CBC AUTO W DIFF neutrophil# 7.3 K/uL 2.2-4. 8 high Not Available [facility] ([facility]) [address] [facility], [place], [address], 08/10/2024 10:33:28 08/11/19 25 08/10/2024 CBC AUTO W DIFF lymphocyte# 1.3 cell/ mcL 1.3-2. 9 Not Available [facility] ([facility]) [address] [facility], [place], [address], 08/10/2024 10:33:28 08/11/19 25 08/10/2024 CBC AUTO W DIFF monocyte# 0.7 cell/ mcL 0.3-0. 8 Not Available [facility] ([facility]) [address] [facility], [place], [address], 08/10/2024 10:33:28 08/11/19 25 08/10/2024 CBC AUTO W DIFF eosinophil# 0.9 cell/ mcL 0-0.2 high Not Available [facility] ([facility]) [address] [facility], [place], [address], 08/10/2024 10:33:28 08/11/19 25 08/10/2024 CBC AUTO W DIFF basophil# 0.1 cell/ mcL 0.0-1. 0 Not Available [facility] ([facility]) [address] [place], [address], 08/10/2024 10:33:28 08/11/19 25 08/10/2024 CBC AUTO W DIFF immature gramulocytes # 0.03 K/uL Not Available [facility] ([facility]) [address] [facility], [place], [address], 08/10/2024 10:33:28 08/11/19 25 08/10/2024 CBC AUTO W DIFF nucleated red blood cells # 0.00 K/uL Not Available [facility] ([facility]) [address], [place], [address], 08/10/2024 10:33:28 08/11/19 25 08/10/2024 CBC AUTO W DIFF manual differential NO Not Available [facility] ([facility]) [address], [place], [address], 08/10/2024 10:33:28 08/11/19 25 08/10/2024 COMP METAB OLIC PANEL sodium 140 mmol/ L 136-14 5 Not Available [facility] ([facility]) [address], [place], [address], 08/10/2024 10:56:34 08/11/19 25 08/10/2024 COMP METAB OLIC PANEL potassium 4.1 mmol/ L 3.6-5. 0 Not Available [facility] ([facility]) [address], [place], [address], 08/10/2024 10:56:34 08/11/19 25 08/10/2024 COMP METAB OLIC PANEL chloride 104 mmol/ L 98-107 Not Available [facility] ([facility]) [address], [place], [address], 08/10/2024 10:56:34 08/11/19 25 08/10/2024 COMP METAB OLIC PANEL carbon dioxide 22.7 mmol/ L 21.0-3 2.0 Not Available [facility] ([facility]) [address], [place], [address], 08/10/2024 10:56:34 08/11/19 25 08/10/2024 COMP METAB OLIC PANEL anion gap 17.4 Not Available [facility] ([facility]) [address], [place], [address], 08/10/2024 10:56:34 08/11/19 25 08/10/2024 COMP METAB OLIC PANEL glucose 180 mg/dL 70-120 high Not Available [facility] ([facility]) [address], [place], [address], 08/10/2024 10:56:34 08/11/19 25 08/10/2024 COMP METAB OLIC PANEL BUN 13 mg/dL 7-18 Not Available [facility] ([facility]) [address], [place], [address], 08/10/2024 10:56:34 08/11/19 25 08/10/2024 COMP METAB OLIC PANEL creatinine 1.05 mg/dL 0.6-1. 3 Not Available [facility] ([facility]) [address], [place], [address], 08/10/2024 10:56:34 08/11/19 25 08/10/2024 COMP METAB [...] albrecht ing kiney funct ion. Not Available [facility] ([facility]) [address], [place], [address], 08/10/2024 10:56:34 08/11/19 25 08/10/2024 COMP METAB OLIC PANEL total protein 6.9 g/dL 6.4-8. 2 Not Available [facility] ([facility]) [address], [place], [address], 08/10/2024 10:56:34 08/11/19 25 08/10/2024 COMP METAB OLIC PANEL albumin 4.3 g/dL 3.4-5. 0 Not Available [facility] ([facility]) [address], [place], [address], 08/10/2024 10:56:34 08/11/19 25 08/10/2024 COMP METAB OLIC PANEL globulin 2.6 Not Available [facility] ([facility]) [address], [place], [address], 08/10/2024 10:56:34 08/11/19 25 08/10/2024 COMP METAB OLIC PANEL alb/glob ratio 1.7 0.7-2 Not Available [facility] ([facility]) [address], [place], [address], 08/10/2024 10:56:34 08/11/19 25 08/10/2024 COMP METAB OLIC PANEL calcium 8.9 mg/dL 8.5-10 .5 Not Available [facility] ([facility]) [address], [place], [address], 08/10/2024 10:56:34 08/11/19 25 08/10/2024 COMP METAB OLIC PANEL bilirubin total 0.6 mg/dL 0.10-1 .00 Not Available [facility] ([facility]) [address], [place], [address], 08/10/2024 10:56:34 08/11/19 25 08/10/2024 COMP METAB OLIC PANEL AST (SGOT) 40 U/L 0-37 high Not Available [facility] ([facility]) [address], [place], [address], 08/10/2024 10:56:34 08/11/19 25 08/10/2024 COMP METAB OLIC PANEL ALT (SGPT) 23 U/L 0-65 Not Available [facility] ([facility]) [address] [facility], [place], [address], 08/10/2024 10:56:34 08/11/19 25 08/10/2024 COMP METAB OLIC PANEL alk phosphatase 234 U/L 46-116 high Not Available [facility] ([facility]) [address] [facility], [place], [address], 08/10/2024 10:56:34 08/11/19 25 08/10/2024 MAGNE SIUM magnesium 2.1 mg/dL 1.8-2. 4 Not Available [facility] ([facility]) [address] [facility], [place], [address], 08/10/2024 10:57:38 08/11/19 25 08/10/2024 PT (PROT HROMB IN TIME) W INR prothrombin time 36.2 secon ds 9.3-11 .4 high Not Available [facility] ([facility]) [address] [facility], [place], [address], 08/10/2024 10:58:45 08/11/19 25 08/10/2024 PT (PROT [...] Mecha nical Heart Valve s Not Available [facility] ([facility]) [address] [facility], [place], [address], 08/10/2024 10:58:45 08/26/19 25 08/25/2024 COMP METAB OLIC PANEL sodium 137 mmol/ L 136-14 5 Not Available [facility] ([facility]) [address] , [place], [address], 08/25/2024 09:39:00 08/26/19 25 08/25/2024 COMP METAB OLIC PANEL potassium 4.1 mmol/ L 3.6-5. 0 Not Available [facility] ([facility]) [address] , [place], [address], 08/25/2024 09:39:00 08/26/19 25 08/25/2024 COMP METAB OLIC PANEL chloride 101 mmol/ L 98-107 Not Available [facility] ([facility]) [address] , [place], [address], 08/25/2024 09:39:00 08/26/19 25 08/25/2024 COMP METAB OLIC PANEL carbon dioxide 23.8 mmol/ L 21.0-3 2.0 Not Available [facility] ([facility]) [address] , [place], [address], 08/25/2024 09:39:00 08/26/19 25 08/25/2024 COMP METAB OLIC PANEL anion gap 16.3 Not Available [facility] ([facility]) [address] , [place], [address], 08/25/2024 09:39:00 08/26/19 25 08/25/2024 COMP METAB OLIC PANEL glucose 169 mg/dL 70-120 high Not Available [facility] ([facility]) [address] [place], [address], 08/25/2024 09:39:00 08/26/19 25 08/25/2024 COMP METAB OLIC PANEL BUN 17 mg/dL 7-18 Not Available [facility] ([facility]) [address] [place], [address], 08/25/2024 09:39:00 08/26/19 25 08/25/2024 COMP METAB OLIC PANEL creatinine 1.5 mg/dL 0.6-1. 3 high Not Available [facility] ([facility]) [address] , [place], [address], 08/25/2024 09:39:00 08/26/19 25 08/25/2024 COMP METAB [...] albrecht ing kiney funct ion. Not Available [facility] ([facility]) [address] , [place], [address], 08/25/2024 09:39:00 08/26/1908/25/2024 COMP METAB OLIC PANEL osmolality (calculated) 291 mOsm/ kg 275-30 1 OSMOL ALITY IS A CALCU LATIO N UTILI ZING THE SERUM /PLAS MA SODIU M, GLUCO SE AND UREA NITRO GEN (BUN) LEVEL S. FOR THE MOST ACCUR ATE RESUL T A MEASU RED SERUM OSMOL ALITY IS SUGGE STED. Not Available [facility] ([facility]) [address] , [place], [address], 08/25/2024 09:39:00 08/26/1908/25/2024 COMP METAB OLIC PANEL total protein 7.2 g/dL 6.4-8. 2 Not Available [facility] ([facility]) [address] , [place], [address], 08/25/2024 09:39:00 08/26/19 25 08/25/2024 COMP METAB OLIC PANEL albumin 2.9 g/dL 3.4-5. 0 low Not Available [facility] ([facility]) [address], [place], [address], 08/25/2024 09:39:00 08/26/19 25 08/25/2024 COMP METAB OLIC PANEL globulin 4.3 Not Available [facility] ([facility]) [address], [place], [address], 08/25/2024 09:39:00 08/26/19 25 08/25/2024 COMP METAB OLIC PANEL alb/glob ratio 0.7 0.7-2 Not Available [facility] ([facility]) [address] [facility], [place], [address], 08/25/2024 09:39:00 08/26/19 25 08/25/2024 COMP METAB OLIC PANEL calcium 8.9 mg/dL 8.5-10 .5 Not Available [facility] ([facility]) [address] [facility], [place], [address], 08/25/2024 09:39:00 08/26/19 25 08/25/2024 COMP METAB OLIC PANEL bilirubin total 0.50 mg/dL 0.10-1 .00 Not Available [facility] ([facility]) [address] [facility], [place], [address], 08/25/2024 09:39:00 08/26/19 25 08/25/2024 COMP METAB OLIC PANEL AST (SGOT) 18 U/L 0-37 Not Available [facility] ([facility]) [address], [place], [address], 08/25/2024 09:39:00 08/26/19 25 08/25/2024 COMP METAB OLIC PANEL ALT (SGPT) 16 U/L 0-65 Not Available [facility] ([facility]) [address], [place], [address], 08/25/2024 09:39:00 08/26/19 25 08/25/2024 COMP METAB OLIC PANEL alk phosphatase 218 U/L 46-116 high Not Available [facility] ([facility]) [address], [place], [address], 08/25/2024 09:39:00 08/26/19 25 08/25/2024 MAGNE SIUM magnesium 1.8 mg/dL 1.8-2. 4 Not Available [facility] ([facility]) [address], [place], [address], 08/25/2024 09:39:02 08/26/19 25 08/25/2024 CBC AUTO W DIFF WBC 3.5 K/uL 4.0-10 .5 low Not Available [facility] ([facility]) [address], [place], [address], 08/25/2024 09:46:31 08/26/19 25 08/25/2024 CBC AUTO W DIFF RBC 3.9 M/mm3 4.2-6. 4 low Not Available [facility] ([facility]) [address], [place], [address], 08/25/2024 09:46:31 08/26/19 25 08/25/2024 CBC AUTO W DIFF HGB 11.4 gm/dL 12.5-1 6.0 low Not Available [facility] ([facility]) [address], [place], [address], 08/25/2024 09:46:31 08/26/19 25 08/25/2024 CBC AUTO W DIFF HCT 34.6 % 37.0-4 7.0 low Not Available [facility] ([facility]) [address], [place], [address], 08/25/2024 09:46:31 08/26/19 25 08/25/2024 CBC AUTO W DIFF MCV 88.7 fL 78-100 Not Available [facility] ([facility]) [address], [place], [address], 08/25/2024 09:46:31 08/26/19 25 08/25/2024 CBC AUTO W DIFF MCH 29.2 pg 27-31 Not Available [facility] ([facility]) [address] , [place], [address], 08/25/2024 09:46:31 08/26/19 25 08/25/2024 CBC AUTO W DIFF MCHC 32.9 g/dL 32-36 Not Available [facility] ([facility]) [address] , [place], [address], 08/25/2024 09:46:31 08/26/19 25 08/25/2024 CBC AUTO W DIFF RDW 15.6 % 11.5-1 4.0 high Not Available [facility] ([facility]) [address], [place], [address], 08/25/2024 09:46:31 08/26/19 25 08/25/2024 CBC AUTO W DIFF platelet count 295 K/uL 150-45 0 Not Available [facility] ([facility]) [address] , [place], [address], 08/25/2024 09:46:31 08/26/19 25 08/25/2024 CBC AUTO W DIFF MPV 9.0 fL 6-9.5 Not Available [facility] ([facility]) [address] [place], [address], 08/25/2024 09:46:31 08/26/19 25 08/25/2024 CBC AUTO W DIFF neutrophil% 39.6 % 43-65 low Not Available [facility] ([facility]) [address] [place], [address], 08/25/2024 09:46:31 08/26/19 25 08/25/2024 CBC AUTO W DIFF lymphocyte% 41.8 % 20.5-4 5.5 Not Available [facility] ([facility]) [address] , [place], [address], 08/25/2024 09:46:31 08/26/19 25 08/25/2024 CBC AUTO W DIFF monocyte% 13.4 % 5.5-11 .7 high Not Available [facility] ([facility]) [address] , [place], [address], 08/25/2024 09:46:31 08/26/19 25 08/25/2024 CBC AUTO W DIFF eosinophil% 3.7 % 0.9-2. 9 high Not Available [facility] ([facility]) [address] , [place], [address], 08/25/2024 09:46:31 08/26/19 25 08/25/2024 CBC AUTO W DIFF basophil% 0.9 % 0.2-1. 0 Not Available [facility] ([facility]) [address] , [place], [address], 08/25/2024 09:46:31 08/26/19 25 08/25/2024 CBC AUTO W DIFF immature granulocytes % 0.6 % 0.0-0. 8 Not Available [facility] ([facility]) [address] , [place], [address], 08/25/2024 09:46:31 08/26/19 25 08/25/2024 CBC AUTO W DIFF nucleated red blood cells % 0.0 % Not Available [facility] ([facility]) [address] , [place], [address], 08/25/2024 09:46:31 08/26/19 25 08/25/2024 CBC AUTO W DIFF neutrophil# 1.4 K/uL 2.2-4. 8 low Not Available [facility] ([facility]) [address], [place], [address], 08/25/2024 09:46:31 08/26/19 25 08/25/2024 CBC AUTO W DIFF lymphocyte# 1.5 cell/ mcL 1.3-2. 9 Not Available [facility] ([facility]) [address], [place], [address], 08/25/2024 09:46:31 08/26/19 25 08/25/2024 CBC AUTO W DIFF monocyte# 0.5 cell/ mcL 0.3-0. 8 Not Available [facility] ([facility]) [address], [place], [address], 08/25/2024 09:46:31 08/26/19 25 08/25/2024 CBC AUTO W DIFF eosinophil# 0.1 cell/ mcL 0-0.2 Not Available [facility] ([facility]) [address], [place], [address], 08/25/2024 09:46:31 08/26/19 25 08/25/2024 CBC AUTO W DIFF basophil# 0.0 cell/ mcL 0.0-1. 0 Not Available [facility] ([facility]) [address] [facility], [place], [address], 08/25/2024 09:46:31 08/26/19 25 08/25/2024 CBC AUTO W DIFF immature gramulocytes # 0.02 K/uL Not Available [facility] ([facility]) [address] [facility], [place], [address], 08/25/2024 09:46:31 08/26/19 25 08/25/2024 CBC AUTO W DIFF nucleated red blood cells # 0.00 K/uL Not Available [facility] ([facility]) [address] [facility], [place], [address], 08/25/2024 09:46:31 08/26/19 25 08/25/2024 CBC AUTO W DIFF manual differential NO Not Available [facility] ([facility]) [address] , [place], [address], 08/25/2024 09:46:31 08/26/19 25 08/25/2024 PT (PROT HROMB IN TIME) W INR prothrombin time 77.1 secon ds 9.3-11 .4 critical high Not Available [facility] ([facility]) [address] , [place], [address], 08/25/2024 10:02:40 08/26/19 25 08/25/2024 PT (PROT [...] Mecha nical Heart Valve s Not Available [facility] ([facility]) [address] , [place], [address], 08/25/2024 10:02:40 09/03/19 25 09/02/2024 COMP METAB OLIC PANEL sodium 131 mmol/ L 136-14 5 low Not Available [facility] ([facility]) [address] , [place], [address], 09/02/2024 14:45:24 09/03/19 25 09/02/2024 COMP METAB OLIC PANEL potassium 4.0 mmol/ L 3.6-5. 0 Not Available [facility] ([facility]) [address] , [place], [address], 09/02/2024 14:45:24 09/03/19 25 09/02/2024 COMP METAB OLIC PANEL chloride 99 mmol/ L 98-107 Not Available [facility] ([facility]) [address] , [place], [address], 09/02/2024 14:45:24 09/03/19 25 09/02/2024 COMP METAB OLIC PANEL carbon dioxide 18.6 mmol/ L 21.0-3 2.0 low Not Available [facility] ([facility]) [address], [place], [address], 09/02/2024 14:45:24 09/03/19 25 09/02/2024 COMP METAB OLIC PANEL anion gap 17.4 Not Available [facility] ([facility]) [address], [place], [address], 09/02/2024 14:45:24 09/03/19 25 09/02/2024 COMP METAB OLIC PANEL glucose 145 mg/dL 70-120 high Not Available [facility] ([facility]) [address] [facility], [place], [address], 09/02/2024 14:45:24 09/03/19 25 09/02/2024 COMP METAB OLIC PANEL BUN 36 mg/dL 7-18 high Not Available [facility] ([facility]) [address] [facility], [place], [address], 09/02/2024 14:45:24 09/03/19 25 09/02/2024 COMP METAB OLIC PANEL creatinine 1.5 mg/dL 0.6-1. 3 high Not Available [facility] ([facility]) [address] [facility], [place], [address], 09/02/2024 14:45:24 09/03/19 25 09/02/2024 COMP METAB [...] albrecht ing kiney funct ion. Not Available [facility] ([facility]) [address], [place], [address], 09/02/2024 14:45:24 09/03/19 25 09/02/2024 COMP METAB OLIC PANEL osmolality (calculated) 284 mOsm/ kg 275-30 1 OSMOL ALITY IS A CALCU LATIO N UTILI ZING THE SERUM /PLAS MA SODIU M, GLUCO SE AND UREA NITRO GEN (BUN) LEVEL S. FOR THE MOST ACCUR ATE RESUL T A MEASU RED SERUM OSMOL ALITY IS SUGGE STED. Not Available [facility] ([facility]) [address], [place], [address], 09/02/2024 14:45:24 09/03/19 25 09/02/2024 COMP METAB OLIC PANEL total protein 5.9 g/dL 6.4-8. 2 low Not Available [facility] ([facility]) [address], [place], [address], 09/02/2024 14:45:24 09/03/19 25 09/02/2024 COMP METAB OLIC PANEL albumin 2.1 g/dL 3.4-5. 0 low Not Available [facility] ([facility]) [address], [place], [address], 09/02/2024 14:45:24 09/03/19 25 09/02/2024 COMP METAB OLIC PANEL globulin 3.8 Not Available [facility] ([facility]) [address], [place], [address], 09/02/2024 14:45:24 09/03/19 25 09/02/2024 COMP METAB OLIC PANEL alb/glob ratio 0.6 0.7-2 low Not Available [facility] ([facility]) [address], [place], [address], 09/02/2024 14:45:24 09/03/19 25 09/02/2024 COMP METAB OLIC PANEL calcium 8.1 mg/dL 8.5-10 .5 low Not Available [facility] ([facility]) [address] , [place], [address], 09/02/2024 14:45:24 09/03/19 25 09/02/2024 COMP METAB OLIC PANEL bilirubin total 1.10 mg/dL 0.10-1 .00 high Not Available [facility] ([facility]) [address] , [place], [address], 09/02/2024 14:45:24 09/03/19 25 09/02/2024 COMP METAB OLIC PANEL AST (SGOT) 13 U/L 0-37 Not Available [facility] ([facility]) [address] , [place], [address], 09/02/2024 14:45:24 09/03/19 25 09/02/2024 COMP METAB OLIC PANEL ALT (SGPT) 13 U/L 0-65 Not Available [facility] ([facility]) [address] , [place], [address], 09/02/2024 14:45:24 09/03/19 25 09/02/2024 COMP METAB OLIC PANEL alk phosphatase 188 U/L 46-116 high Not Available [facility] ([facility]) [address] , [place], [address], 09/02/2024 14:45:24 09/03/19 25 09/02/2024 CBC AUTO W DIFF WBC 1.2 K/uL 4.0-10 .5 critical low Not Available [facility] ([facility]) [address] , [place], [address], 09/02/2024 16:09:44 09/03/19 25 09/02/2024 CBC AUTO W DIFF RBC 3.4 M/mm3 4.2-6. 4 low Not Available [facility] ([facility]) [address], [place], [address], 09/02/2024 16:09:44 09/03/19 25 09/02/2024 CBC AUTO W DIFF HGB 9.6 gm/dL 12.5-1 6.0 low Not Available [facility] ([facility]) [address], [place], [address], 09/02/2024 16:09:44 09/03/19 25 09/02/2024 CBC AUTO W DIFF HCT 28.7 % 37.0-4 7.0 low Not Available [facility] ([facility]) [address], [place], [address], 09/02/2024 16:09:44 09/03/19 25 09/02/2024 CBC AUTO W DIFF MCV 85.4 fL 78-100 Not Available [facility] ([facility]) [address], [place], [address], 09/02/2024 16:09:44 09/03/19 25 09/02/2024 CBC AUTO W DIFF MCH 28.6 pg 27-31 Not Available [facility] ([facility]) [address], [place], [address], 09/02/2024 16:09:44 09/03/19 25 09/02/2024 CBC AUTO W DIFF MCHC 33.4 g/dL 32-36 Not Available [facility] ([facility]) [address], [place], [address], 09/02/2024 16:09:44 09/03/19 25 09/02/2024 CBC AUTO W DIFF RDW 15.9 % 11.5-1 4.0 high Not Available [facility] ([facility]) [address], [place], [address], 09/02/2024 16:09:44 09/03/19 25 09/02/2024 CBC AUTO W DIFF platelet count 213 K/uL 150-45 0 Not Available [facility] ([facility]) [address] , [place], [address], 09/02/2024 16:09:44 09/03/19 25 09/02/2024 CBC AUTO W DIFF MPV 9.6 fL 6-9.5 high Not Available [facility] ([facility]) [address] , [place], [address], 09/02/2024 16:09:44 09/03/19 25 09/02/2024 CBC AUTO W DIFF neutrophil% 57.7 % 43-65 Not Available [facility] ([facility]) [address], [place], [address], 09/02/2024 16:09:44 09/03/19 25 09/02/2024 CBC AUTO W DIFF lymphocyte% 25.4 % 20.5-4 5.5 Not Available [facility] ([facility]) [address] [place], [address], 09/02/2024 16:09:44 09/03/19 25 09/02/2024 CBC AUTO W DIFF monocyte% 15.3 % 5.5-11 .7 high Not Available [facility] ([facility]) [address] [place], [address], 09/02/2024 16:09:44 09/03/19 25 09/02/2024 CBC AUTO W DIFF eosinophil% 0.0 % 0.9-2. 9 low Not Available [facility] ([facility]) [address] [place], [address], 09/02/2024 16:09:44 09/03/19 25 09/02/2024 CBC AUTO W DIFF basophil% 0.8 % 0.2-1. 0 Not Available [facility] ([facility]) [address] [place], [address], 09/02/2024 16:09:44 09/03/19 25 09/02/2024 CBC AUTO W DIFF immature granulocytes % 0.8 % 0.0-0. 8 Not Available [facility] ([facility]) [address] [facility], [place], [address], 09/02/2024 16:09:44 09/03/19 25 09/02/2024 CBC AUTO W DIFF nucleated red blood cells % 0.0 % Not Available [facility] ([facility]) [address] [facility], [place], [address], 09/02/2024 16:09:44 09/03/19 25 09/02/2024 CBC AUTO W DIFF neutrophil# 0.7 K/uL 2.2-4. 8 low Not Available [facility] ([facility]) [address] [facility], [place], [address], 09/02/2024 16:09:44 09/03/19 25 09/02/2024 CBC AUTO W DIFF lymphocyte# 0.3 cell/ mcL 1.3-2. 9 low Not Available [facility] ([facility]) [address] [place], [address], 09/02/2024 16:09:44 09/03/19 25 09/02/2024 CBC AUTO W DIFF monocyte# 0.2 cell/ mcL 0.3-0. 8 low Not Available [facility] ([facility]) [address] [place], [address], 09/02/2024 16:09:44 09/03/19 25 09/02/2024 CBC AUTO W DIFF eosinophil# 0.0 cell/ mcL 0-0.2 Not Available [facility] ([facility]) [address] [place], [address], 09/02/2024 16:09:44 09/03/19 25 09/02/2024 CBC AUTO W DIFF basophil# 0.0 cell/ mcL 0.0-1. 0 Not Available [facility] ([facility]) [address] , [place], [address], 09/02/2024 16:09:44 09/03/19 25 09/02/2024 CBC AUTO W DIFF immature gramulocytes # 0.01 K/uL Not Available [facility] ([facility]) [address] , [place], [address], 09/02/2024 16:09:44 09/03/19 25 09/02/2024 CBC AUTO W DIFF nucleated red blood cells # 0.00 K/uL Not Available [facility] ([facility]) [address] , [place], [address], 09/02/2024 16:09:44 09/03/19 25 09/02/2024 CBC AUTO W DIFF manual differential YES Not Available [facility] ([facility]) [address] , [place], [address], 09/02/2024 16:09:44 09/03/19 25 09/02/2024 CBC AUTO W DIFF segmented neutrophil 54 % 42-76 Not Available [facility] ([facility]) [address] , [place], [address], 09/02/2024 16:09:44 09/03/19 25 09/02/2024 CBC AUTO W DIFF band neutrophil 8 % 0-8 Not Available [facility] ([facility]) [address] , [place], [address], 09/02/2024 16:09:44 09/03/19 25 09/02/2024 CBC AUTO W DIFF lymphocyte 16 % 15-41 Not Available [facility] ([facility]) [address] , [place], [address], 09/02/2024 16:09:44 04/04/20 25 09/02/2024 CBC AUTO W DIFF monocyte 20 % 2-9 high Not Available [facility] ([facility]) [address] , [place], [address], 09/02/2024 16:09:44 09/03/19 25 09/02/2024 CBC AUTO W DIFF eosinophil 2 % 0-3 Not Available [facility] ([facility]) [address] , [place], [address], 09/02/2024 16:09:44 09/03/19 25 09/02/2024 CBC AUTO W DIFF platelet estimate ADEQUA TE adequa te Not Available [facility] ([facility]) [address] , [place], [address], 09/02/2024 16:09:44 09/03/19 25 09/02/2024 CBC AUTO W DIFF platelet morphology NORMAL normal Not Available [facility] ([facility]) [address] , [place], [address], 09/02/2024 16:09:44 09/03/19 25 09/02/2024 CBC AUTO W DIFF RBC morphology NORMAL normal Not Available [facility] ([facility]) [address] , [place], [address], 09/02/2024 16:09:44 11/02/19 25 11/01/2024 CBC AUTO W DIFF WBC 6.7 K/uL 4.0-10 .5 Not Available [facility] ([facility]) [address] [place], [address], 11/01/2024 15:32:39 11/02/19 25 11/01/2024 CBC AUTO W DIFF RBC 3.2 M/mm3 4.2-6. 4 low Not Available [facility] ([facility]) [address], [place], [address], 11/01/2024 15:32:39 11/02/19 25 11/01/2024 CBC AUTO W DIFF HGB 9.0 gm/dL 12.5-1 6.0 low Not Available [facility] ([facility]) [address], [place], [address], 11/01/2024 15:32:39 11/02/19 25 11/01/2024 CBC AUTO W DIFF HCT 28.9 % 37.0-4 7.0 low Not Available [facility] ([facility]) [address], [place], [address], 11/01/2024 15:32:39 11/02/19 25 11/01/2024 CBC AUTO W DIFF MCV 90.9 fL 78-100 Not Available [facility] ([facility]) [address] , [place], [address], 11/01/2024 15:32:39 11/02/19 25 11/01/2024 CBC AUTO W DIFF MCH 28.3 pg 27-31 Not Available [facility] ([facility]) [address], [place], [address], 11/01/2024 15:32:39 11/02/19 25 11/01/2024 CBC AUTO W DIFF MCHC 31.1 g/dL 32-36 low Not Available [facility] ([facility]) [address] , [place], [address], 11/01/2024 15:32:39 11/02/19 25 11/01/2024 CBC AUTO W DIFF RDW 14.5 % 11.5-1 4.0 high Not Available [facility] ([facility]) [address] , [place], [address], 11/01/2024 15:32:39 11/02/19 25 11/01/2024 CBC AUTO W DIFF platelet count 257 K/uL 150-45 0 Not Available [facility] ([facility]) [address], [place], [address], 11/01/2024 15:32:39 11/02/19 25 11/01/2024 CBC AUTO W DIFF MPV 9.6 fL 6-9.5 high Not Available [facility] ([facility]) [address], [place], [address], 11/01/2024 15:32:39 11/02/19 25 11/01/2024 CBC AUTO W DIFF neutrophil% 75.3 % 43-65 high Not Available [facility] ([facility]) [address], [place], [address], 11/01/2024 15:32:39 11/02/19 25 11/01/2024 CBC AUTO W DIFF lymphocyte% 13.9 % 20.5-4 5.5 low Not Available [facility] ([facility]) [address], [place], [address], 11/01/2024 15:32:39 11/02/19 25 11/01/2024 CBC AUTO W DIFF monocyte% 7.5 % 5.5-11 .7 Not Available [facility] ([facility]) [address] [place], [address], 11/01/2024 15:32:39 11/02/19 25 11/01/2024 CBC AUTO W DIFF eosinophil% 2.2 % 0.9-2. 9 Not Available [facility] ([facility]) [address] [place], [address], 11/01/2024 15:32:39 11/02/19 25 11/01/2024 CBC AUTO W DIFF basophil% 0.4 % 0.2-1. 0 Not Available [facility] ([facility]) [address] [place], [address], 11/01/2024 15:32:39 11/02/19 25 11/01/2024 CBC AUTO W DIFF immature granulocytes % 0.7 % 0.0-0. 8 Not Available [facility] ([facility]) [address] [facility], [place], [address], 11/01/2024 15:32:39 11/02/19 25 11/01/2024 CBC AUTO W DIFF nucleated red blood cells % 0.0 % Not Available [facility] ([facility]) [address] [facility], [place], [address], 11/01/2024 15:32:39 11/02/19 25 11/01/2024 CBC AUTO W DIFF neutrophil# 5.0 K/uL 2.2-4. 8 high Not Available [facility] ([facility]) [address] [facility], [place], [address], 11/01/2024 15:32:39 11/02/19 25 11/01/2024 CBC AUTO W DIFF lymphocyte# 0.9 cell/ mcL 1.3-2. 9 low Not Available [facility] ([facility]) [address] [place], [address], 11/01/2024 15:32:39 11/02/19 25 11/01/2024 CBC AUTO W DIFF monocyte# 0.5 cell/ mcL 0.3-0. 8 Not Available [facility] ([facility]) [address] [place], [address], 11/01/2024 15:32:39 11/02/19 25 11/01/2024 CBC AUTO W DIFF eosinophil# 0.2 cell/ mcL 0-0.2 Not Available [facility] ([facility]) [address] [place], [address], 11/01/2024 15:32:39 11/02/19 25 11/01/2024 CBC AUTO W DIFF basophil# 0.0 cell/ mcL 0.0-1. 0 Not Available [facility] ([facility]) [address], [place], [address], 11/01/2024 15:32:39 11/02/19 25 11/01/2024 CBC AUTO W DIFF immature gramulocytes # 0.05 K/uL Not Available [facility] ([facility]) [address], [place], [address], 11/01/2024 15:32:39 11/02/19 25 11/01/2024 CBC AUTO W DIFF nucleated red blood cells # 0.00 K/uL Not Available [facility] ([facility]) [address], [place], [address], 11/01/2024 15:32:39 11/02/19 25 11/01/2024 CBC AUTO W DIFF manual differential NO Not Available [facility] ([facility]) [address], [place], [address], 11/01/2024 15:32:39 11/02/19 25 11/01/2024 COMP METAB OLIC PANEL sodium 139 mmol/ L 136-14 5 Not Available [facility] ([facility]) [address], [place], [address], 11/01/2024 15:54:32 11/02/19 25 11/01/2024 COMP METAB OLIC PANEL potassium 3.6 mmol/ L 3.6-5. 0 Not Available [facility] ([facility]) [address], [place], [address], 11/01/2024 15:54:32 11/02/19 25 11/01/2024 COMP METAB OLIC PANEL chloride 103 mmol/ L 98-107 Not Available [facility] ([facility]) [address], [place], [address], 11/01/2024 15:54:32 11/02/19 25 11/01/2024 COMP METAB OLIC PANEL carbon dioxide 27.8 mmol/ L 21.0-3 2.0 Not Available [facility] ([facility]) [address], [place], [address], 11/01/2024 15:54:32 11/02/19 25 11/01/2024 COMP METAB OLIC PANEL anion gap 11.8 Not Available [facility] ([facility]) [address], [place], [address], 11/01/2024 15:54:32 11/02/19 25 11/01/2024 COMP METAB OLIC PANEL glucose 112 mg/dL 70-120 Not Available [facility] ([facility]) [address] [facility], [place], [address], 11/01/2024 15:54:32 11/02/19 25 11/01/2024 COMP METAB OLIC PANEL BUN 9 mg/dL 7-18 Not Available [facility] ([facility]) [address] [facility], [place], [address], 11/01/2024 15:54:32 11/02/19 25 11/01/2024 COMP METAB OLIC PANEL creatinine 1.1 mg/dL 0.6-1. 3 Not Available [facility] ([facility]) [address] [place], [address], 11/01/2024 15:54:32 11/02/19 25 11/01/2024 COMP METAB [...] albrecht ing kiney funct ion. Not Available [facility] ([facility]) [address], [place], [address], 11/01/2024 15:54:32 11/02/19 25 11/01/2024 COMP METAB OLIC PANEL osmolality (calculated) 289 mOsm/ kg 275-30 1 OSMOL ALITY IS A CALCU LATIO N UTILI ZING THE SERUM /PLAS MA SODIU M, GLUCO SE AND UREA NITRO GEN (BUN) LEVEL S. FOR THE MOST ACCUR ATE RESUL T A MEASU RED SERUM OSMOL ALITY IS SUGGE STED. Not Available [facility] ([facility]) [address], [place], [address], 11/01/2024 15:54:32 11/02/19 25 11/01/2024 COMP METAB OLIC PANEL total protein 6.5 g/dL 6.4-8. 2 Not Available [facility] ([facility]) [address], [place], [address], 11/01/2024 15:54:32 11/02/19 25 11/01/2024 COMP METAB OLIC PANEL albumin 2.2 g/dL 3.4-5. 0 low Not Available [facility] ([facility]) [address], [place], [address], 11/01/2024 15:54:32 11/02/19 25 11/01/2024 COMP METAB OLIC PANEL globulin 4.3 Not Available [facility] ([facility]) [address], [place], [address], 11/01/2024 15:54:32 11/02/19 25 11/01/2024 COMP METAB OLIC PANEL alb/glob ratio 0.5 0.7-2 low Not Available [facility] ([facility]) [address], [place], [address], 11/01/2024 15:54:32 11/02/19 25 11/01/2024 COMP METAB OLIC PANEL calcium 8.5 mg/dL 8.5-10 .5 Not Available [facility] ([facility]) [address] [facility], [place], [address], 11/01/2024 15:54:32 11/02/19 25 11/01/2024 COMP METAB OLIC PANEL bilirubin total 0.40 mg/dL 0.10-1 .00 Not Available [facility] ([facility]) [address] [facility], [place], [address], 11/01/2024 15:54:32 11/02/19 25 11/01/2024 COMP METAB OLIC PANEL AST (SGOT) 33 U/L 0-37 Not Available [facility] ([facility]) [address] [facility], [place], [address], 11/01/2024 15:54:32 11/02/19 25 11/01/2024 COMP METAB OLIC PANEL ALT (SGPT) 11 U/L 0-65 Not Available [facility] ([facility]) [address] [facility], [place], [address], 11/01/2024 15:54:32 11/02/19 25 11/01/2024 COMP METAB OLIC PANEL alk phosphatase 327 U/L 46-116 high Not Available [facility] ([facility]) [address] [facility], [place], [address], 11/01/2024 15:54:32 11/02/19 25 11/03/2024 CEA cea [...] t be inter prete d as absol doris evide nce of the prese nce or absen ce of malig nant disea se. Perfo rmed at: [facility] [address], [place] [address] Lab Direc tor: Tate staton PhD, Phone : [phone] Not Available [facility] ([facility]) [address] [facility], [place], [address], 11/03/2024 13:11:48 07/28/19 25 07/28/2024 CT ABD pel w/ (IV [facility] [address] [place] [address] Phone: Fax: Name: VICKY MCMAHAN Exam Date: : [birth year] Age 78 years Gender : F Access ion: [id number] 2023 Physic jesus: HANNA PARKER Facili ty: [facility] Facili ty HSV: Outpat ient Exam: CT ABD PEL W/ (IV ^ ORAL) CT ABDOME N PELVIS WITH IV CONTRA ST 025 2:46 PM [facility] INDICA TION: Female , 78 [...] rox. Indeed mango gonzalez gs compar e ua ry 2023, index bottle tester ior segmen t right lobe segmen t [...] you for referr ing VICKY MCMAHAN to [facility]. Legall y authen ticate d by VAMSHI Trevino RAFAEL 0 07-28 15:46: 13 CC'ed Logic: Orderi ng Provid er: DIGNA LUGO Attend ing Provid er: DIGNA LUGO Referr ing Provid er: DIGNA LUGO Admitt ing Provid er: DIGNA taylor[address] [place] [address] - Physical Therapy [address] [place] [address], [place], [address], 07/29/2024 11:36:27 08/02/19 25 07/28/2024 CT, chest , w/ contr ast [facility] [address] [place] [address] Phone: Fax: Name: VICKY MCMAHAN Exam Date: 025 : [birth year] Age 78 years Gender : F Access ion: [id number] 2023 Physic jesus: HANNA PARKER Facili [...] Annie Villavicencio in Thank you for referr ing VICKY MCMAHAN to [facility]. Legall y authen ticate d by AVIS ALBA IN 07-28 15:46: 34 CC'ed Logic: Orderi ng Provid er: DIGNA LUGO Attend ing Provid er: DIGNA LUGO Referr ing Provid er: DIGNA LUGO Admitt ing Provid er: DIGNA LUGO [address] - Physical Therapy [address] [place] [address], [address], 08/01/2024 10:49:34 Result Notes Documentation Provider Name and Address Organization Details Recorded Time Ct, Chest, W/ Contrast : [place] [address] Name: VICKY ROBLERO Exam Date: 07/28/2024 : 1945 Age 78 years Gender: F Physician: HANNA FOURNIER Facility: [facility] Facility HSV: Outpatient Exam: CT CHEST [...] by: Robert Underwood MD 08/01/2024 10:35 AM [facility] Dictated By: Robert Underwood Transcribed By: Transcribed On: 07/28/2024 3:46 PM Electronically signed by: Robert Underwood 07/28/2024 Thank you for referring VICKY ROBLERO to [facility]. Legally authenticated by ZAHEER GOODWIN 2024-07-28 15:46:34 CC'ed Logic: Ordering Provider: IRLANDA LUGO Attending Provider: IRLANDA LUGO Referring Provider: IRLANDA LUGO Admitting Provider: IRLANDA Fournier PA-C [address], [place], [address], [place] - [facility] - [place] & [place] 08/01/2024 10:49:34 Problems Name Problem SNOMED Code Status Onset Date Resolution Date Notes Provider Name and Address Organization Details Recorded Time Headache 66318859 Active 2024 Christine yusuf, [place] - [facility] [place] & [place] 5 10:27:12 Metastatic malignant neoplasm to liver 04219988 Active 2022 Ghassan Lieberman PA-C [address], [place], [address] , [place] - [facility] - [place] & [place] 3 14:27:25 Mass of colon 956475037 Active 2022 Ghassan Lieberman PA-C [address], [place], [address] , [place] - [facility] [place] & [place] 3 14:27:30 Anemia 589915562 Active 2022 Ghassan Lieberman PA-C [address], [place], [address] , [place] - [facility] [place] 3 14:27:36 Nausea and vomiting 60442410 Active 2022 Ghassan Lieberman PA-C [address], [place], [address] , [place] [facility] [place] 3 14:27:46 Unintentional weight loss 337290437 Active 2022 Ghassan Lieberman PA-C [address], [place], [address] , [place] [facility] [place] & [place] 3 16:13:07 Night sweats 47726647 Active 2022 Ghassan Lieberman PA-C [address], [place], [address] , [place] [facility] [place] & [place] 3 16:13:12 Problem Notes Documentation Provider Name [...] out may any needs/concerns arise. CURT Muller [facility] & [place] 08/03/2024 14:10:12 Oncology Patient Navigator : ONN met with pt at [facility]. Pt states she is doing well and inquired about her cancer care policy. ONN faxed paperwork to [facility] on 07/26. Pt states that cancer policy states she has not received anything. Pt DIL gave me contact infomation. [phone]. Pt cancer policy number is [id number]. ONN will resend information to cancer policy. Pt denies any questions/concerns at this time. ONN encouraged pt to reach out may any needs/concerns arise. CURT Muller BRIANANT [facility] & [place] 08/10/2024 13:29:49 Oncology Patient Navigator : SW [...] resubmit the documents. CURT Johnston - [facility] [place] 08/15/2024 14:22:48 Oncology Patient Navigator : ONN [...] may any needs/concerns arise. CURT Muller - [facility] [place] 08/25/2024 14:45:18 Oncology Patient Navigator : Pt [...] any needs/concerns arise. CURT Muller & [place] 09/06/2024 10:04:19 Oncology Patient Navigator : ONN contacted pt this afternoon to check in and see how she was doing after discharge from [facility]. Pt states she is doing much better, [...] very appreciative of all the staff of [facility]. ONN encouraged pt to reach out may any needs/concerns arise. [facility] & [place] 09/14/2024 15:13:43 Oncology Patient Navigator : ONN met with pt at [facility] [place], operated by [facility] with medical oncology. Pt states she is doing well at this time. Hospice consult was briefly discussed and pt declined at this time. ONN encouraged pt to reach out may any needs/concerns arise. CURT Muller & [place] 11/01/2024 13:52:48 Procedures Surgical History Date Name Laterality Status Provider Name and Address Organization Details Recorded Time 04/29/20 23 Venipuncture completed Hanna Fournier PA-C [address] , [place], [address], [facility] & [place] 04/27/2023 15:05:29 04/15/20 23 Venipuncture completed Stephanie ELIAS [facility] & [place] 04/15/2023 15:24:55 hysterectomy completed Laurel ELIAS [facility] & [place] 03/11/2023 15:30:22 extraction of cataract completed Laurel ELIAS [facility] & [place] 03/11/2023 15:30:36 excision of colon completed Loree Tadeo [facility] & [place] 04/21/2023 11:32:07 Imaging Results None recorded. Procedure Notes None recorded. Medical Equipment None Reported. Allergies Allergen ID Allergen Name Allergen Category Reaction Reaction Severity Criticality Documentation Date Start Date Code Code System Note Provider Name and Address Organization Details Recorded Time 27316 tetracycl ine medicatio n hives Not available high 02/19/2023 81097 RxNorm Brandy yusuf [facility] & [place] 14:03:33 Medications Name Sig Start Date Stop [...] 2024 active Not Available Not Available Not Meaghan por ondansetron HCl 8 mg tablet TAKE 1 [...] Updated DateTime 5 162.56 cm 35.2 kg/m2 60117.4 4 g 97.7 [degF] 60 /min 99 % 99 % 159 mm[Hg] 61 mm[Hg] [facility] & [place] 5 12:08:08 Date Recorded Body height Body mass index (BMI) Body weight Body temperature Oxygen saturation Oxygen saturation in Arterial blood by Pulse oximetry Heart rate Respiratory rate Systolic blood pressure Diastolic blood pressure Provider Name and Address Organization Details Last Updated DateTime 5 162.56 cm 36 kg/m2 76535.4 g 97 [degF] 90 % 90 % 57 /min 18 /min 143 mm[Hg] 68 mm[Hg] [facility] & [place] 5 10:00:38 Date Recorded Body height Body mass index (BMI) Body weight Body temperature Oxygen saturation Oxygen saturation in Arterial blood by Pulse oximetry Heart rate Respiratory rate Systolic blood pressure Diastolic blood pressure Provider Name and Address Organization Details Last Updated DateTime 5 162.56 cm 35.2 kg/m2 13542.4 4 g 97.5 [degF] 98 % 98 % 20 /min 83 /min 140 mm[Hg] 68 mm[Hg] [facility] & [place] 5 09:42:28 Date Recorded Body height Body temperature Oxygen saturation Oxygen saturation in Arterial blood by Pulse oximetry Heart rate Respiratory rate Systolic blood pressure Diastolic blood pressure Provider Name and Address Organization Details Last Updated DateTime 5 162.56 cm 97.2 [degF] 95 % 95 % 141 /min 20 /min 137 mm[Hg] 86 mm[Hg] [facility] [place] 5 12:09:03 Date Recorded Body height Body mass index (BMI) Body weight Body temperature Oxygen saturation Oxygen saturation in Arterial blood by Pulse oximetry Heart rate Systolic blood pressure Diastolic blood pressure Provider Name and Address Organization Details Last Updated DateTime 5 162.56 cm 33.5 kg/m2 02016.5 1 g 97.6 [degF] 98 % 98 % 75 /min 185 mm[Hg] 79 mm[Hg] Laurel Lai [facility] & [place] 13:16:39 Social History Question Answer Notes LastModified by Reddit Details LastModified Time Tobacco Smoking Status Never Smoker CURT Johnston [facility] & [place] 02/19/2023 14:02:59 What Is Your Level Of Caffeine Consumption? None [email or web address] Information not available 02/19/2023 What Was The Date Of Your Most Recent Tobacco Screening? 11/23/2023 [email or web address] Information not available 11/23/2023 Has Tobacco Cessation Counseling Been Provided? No Information not available 07/13/2023 Sex: Unknown Functional Status Question Answer Note LastModified by Reddit Details LastModified Time Do you use any illicit or recreational drugs? No [email or web address] Information not available 02/19/2023 Do you or have you ever used any other forms of tobacco or nicotine? No [email or web address] Information not available 02/19/2023 What is your level of alcohol consumption? None [email or web address] Information not available 02/19/2023 Mental Status None recorded. Family History Nothing Reported. Medical History No medical history recorded. Gynecological HistoryNo gynecological history recorded. Obstetrics History GPAL:G 0 P 0 0 0 0 Immunizations Vaccine Type Date Status Note Provider Nam e and Address Organization Details Recorded Time pneumococcal polysaccharide PPV23 7 completed Stephanie Taiwo CURT yusuf [facility] & [place] 12/21/2023 09:56:34 Past Encounters Encounter ID Performer Location Encounter Start Date Encounter Closed Date Diagnosis/Indication Diagnosis SNOMED-CT Code Diagnosis ICD10 Code Diagnosis Note [id number] Ghassan Lieberman PA-C [facility] [address] [address] 02/19/2023 13:50:39 02/19/2023 14:35:58 Metastatic malignant neoplasm to liver 73247189 C78.7 Mass of colon 170572954 R19.09 Anemia 540187357 D64.9 Nausea and vomiting 1693 2000 R11.2 Unintentio nal weight loss 923914090 R63.4 Night sweats 61959629 R6 1 [id number] Addy Gonzales MD [facility] General Surgery [address] [place] [address] 03/10/2023 13:05:53 03/10/2023 14:02:07 Mass of colon 784606141 R19.09 Ascending colon. Patient has had ongoing [...] and possibilit y of ostomy. Liver mass 247298172 R16 .0 [id number] Tomy King MD [facility] Oncology and Hematolog y [address] [place] [address] 03/11/2023 14:55:42 03/11/2023 16:34:54 Malignant tumor of ascending colon 257171078 C18.2 CT scan of the abdomen and [...] tissue sampling. Metastatic malignant neoplasm to liver 28806330 C78.7 CT scan of the abdomen and [...] colon cancer. Will follow-up tissue biopsy. Nausea 182108729 R11.0 As needed Zofran and Phenergan prescribed . Pain due t o neoplastic disease 0522874499 9102 G89.3 Right upper quadrant pain secondary to liver metastasis . Patient currently taking Tylenol. Discussed as needed oxycodone to limit Tylenol exposure. Anemia 125170354 D64.9 Right-side d colon mass concerning for malignancy . Will assess for any signs of iron deficiency . Most recent hemoglobin at 8.0. Concern for blood loss from colon mass. Patient reports dark stools. Adopted 369122742 Z62.89 8 Patient is adopted and discussed hereditary gene panel. Patient does have family history of her son having bladder cancer. [id number] Tomy King MD [facility] Oncology and Hematolog y [address] [place] [address] 04/15/2023 14:08:30 04/15/2023 15:42:28 Malignant tumor of ascending colon 975798748 C18.2 CT scan of the abdomen and [...] 8.2 hematocrit 29.0. MCV 67.9. Platelet count 820030. Normal cell differenti al. Low serum folate [...] metastatic colorectal cancer. Discussed chemothera py with [place] based regimen with 5FU Leucovorin if KRAS wild type would also add Vectibix to therapy. Will follow-up. Patient returns on April 15, 2023. Will start chemothera py as soon as possible. Metastatic malignant neoplasm to liver 04991393 C78.7 CT scan of the abdomen and [...] Findings concerning for metastatic colon cancer. Nausea 209741947 R11.0 As needed Zofran and Phenergan prescribed . Pain due t o neoplastic disease 4316372046 9102 G89.3 Right upper quadrant pain secondary to liver metastasis . Patient currently taking Tylenol. Discussed as needed oxycodone to limit Tylenol exposure. Anemia 195068475 D64.9 Right-side d colon mass concerning for malignancy . Will assess for any signs of iron deficiency . Most recent hemoglobin at 8.0. Concern for blood loss from colon mass. Patient reports dark stools. Adopted 377256647 Z62.89 8 Patient is adopted and discussed hereditary gene panel. Patient does have family history of her son having bladder cancer. Will send [facility] hereditary panel. [id number] Addy Gonzales MD [facility] General Surgery [address] [place] [address] 04/21/2023 11:07:18 04/21/2023 11:47:40 Malignant tumor of ascending colon 549054101 C18.2 Patient has follow-up with Oncology, is debating if she wishes any further treatment at this point. I have recommende d continuing lifting restrictio ns for another 2 weeks, then can resume activity as tolerated. Patient can follow-up with me if she has ongoing issues or questions. [id number] Hanna Fournier PA-C [facility] Oncology and Hematolog y [address] [place] [address] 04/29/2023 10:08:09 04/29/2023 10:08:41 Malignant tumor of ascending colon 923750118 C18.2 CT scan of the abdomen and [...] 8.2 hematocrit 29.0. MCV 67.9. Platelet count 909899. Normal cell differenti al. Low serum folate [...] metastatic colorectal cancer. Discussed chemothera py with [place] based regimen with 5FU Leucovorin if [...] prescripti on for Megace. Will follow-up [place] [facility]. Metastatic malignant neoplasm to liver 36936636 C78.7 CT scan of the abdomen and [...] Findings concerning for metastatic colon cancer. Nausea 698128197 R11.0 As needed Zofran and Phenergan prescribed . Pain due t o neoplastic disease 5607870897 9102 G89.3 Right upper quadrant pain secondary to liver metastasis . Patient currently taking Tylenol. Discussed as needed oxycodone to limit Tylenol exposure. Anemia 968702070 D64.9 Right-side d colon mass concerning for malignancy . Will assess for any signs of iron deficiency . Most recent hemoglobin at 8.0. Concern for blood loss from colon mass. Patient reports dark stools. Adopted 109380898 Z62.89 8 Patient is adopted and discussed hereditary gene panel. Patient does have family history of her son having bladder cancer. Will send [facility] hereditary panel. Antineopla stic chemotherapy regimen 551948625 Z51.11 Cycle 1 5FU Leucovorin Vectibix on April 29, 2023. Hypomagnesemia 102660434 E83.42 Patient returns on April 29, 2023. Magnesium level is 1.7 today. Will give 1 g magnesium IV. Hypokalemia 78614756 E87 .6 Patient returns on April 29, 2023. Potassium is low at 2.9. Will send prescripti on for potassium 20 mEq daily. Will follow-up labs again next week. Loss of appetite 7049003 6 R63.0 Patient has had nausea and decreased appetite since her cancer diagnosis. She can not tolerate her nutritiona l drinks. She does take Phenergan with relief. She continues to lose weight. Will send prescripti on for Megace. [id number] Hanna Fournier PA-C [facility] Oncology and Hematolog y [address] [place] [address] 05/04/2023 09:35:22 05/04/2023 09:45:11 Malignant tumor of ascending colon 104234757 C18.2 CT scan of the abdomen and [...] 8.2 hematocrit 29.0. MCV 67.9. Platelet count 997294. Normal cell differenti al. Low serum folate [...] metastatic colorectal cancer. Discussed chemothera py with [place] based regimen with 5FU Leucovorin if [...] has started on Megace. Will follow-up for [facility]. Metastatic malignant neoplasm to liver 61441649 C78.7 CT scan of the abdomen and [...] Findings concerning for metastatic colon cancer. Nausea 220144700 R11.0 As needed Zofran and Phenergan prescribed . Pain due t o neoplastic disease 0213040485 9102 G89.3 Right upper quadrant pain secondary to liver metastasis . Patient currently taking Tylenol. Discussed as needed oxycodone to limit Tylenol exposure. Anemia 384121787 D64.9 Right-side d colon mass concerning for malignancy . Will assess for any signs of iron deficiency . Most recent hemoglobin at 8.0. Concern for blood loss from colon mass. Patient reports dark stools. Adopted 604408734 Z62.89 8 Patient is adopted and discussed hereditary gene panel. Patient does have family history of her son having bladder cancer. Will send [facility] hereditary panel. Antineopla stic chemotherapy regimen 612810240 Z51.11 Cycle 1 5FU Leucovorin Vectibix on April 29, 2023. Cycle 2 5FU Leucovorin Vectibix on May 04, 2023. Hypomagnesemia 717925230 E83.42 Patient returns on April 29, 2023. Magnesium level is 1.7 today. Will give 1 g magnesium IV. Hypokalemia 10434038 E87 .6 Patient returns on April 29, 2023. Potassium is low at 2.9. Will send prescripti on for potassium 20 mEq daily. Will follow-up labs again next week. Loss of appetite 5404010 6 R63.0 Patient has had nausea and decreased appetite since her cancer diagnosis. She can not tolerate her nutritiona l drinks. She does take Phenergan with relief. She continues to lose weight. Will send prescripti on for Megace. [id number] Hanna Fournier PA-C [facility] Oncology and Hematolog y [address] [place] [address] 05/11/2023 09:04:44 05/11/2023 13:02:16 Malignant tumor of ascending colon 219551927 C18.2 CT scan of the abdomen and [...] 8.2 hematocrit 29.0. MCV 67.9. Platelet count 492053. Normal cell differenti al. Low serum folate [...] metastatic colorectal cancer. Discussed chemothera py with [place] based regimen with 5FU Leucovorin if [...] angela portillo. Metastatic malignant neoplasm to liver 04369846 C78.7 CT scan of the abdomen and [...] Findings concerning for metastatic colon cancer. Nausea 963764261 R11.0 As needed Zofran and Phenergan prescribed . Pain due t o neoplastic disease 2305043137 9102 G89.3 Right upper quadrant pain secondary to liver metastasis . Patient currently taking Tylenol. Discussed as needed oxycodone to limit Tylenol exposure. Anemia 537194882 D64.9 Right-side d colon mass concerning for malignancy . Will assess for any signs of iron deficiency . Most recent hemoglobin at 8.0. Concern for blood loss from colon mass. Patient reports dark stools. Adopted 640538141 Z62.89 8 Patient is adopted and discussed hereditary gene panel. Patient does have family history of her son having bladder cancer. Will send [facility] hereditary panel. Antineopla stic chemotherapy regimen 451156457 Z51.11 Cycle 1 5FU Leucovorin Vectibix on April 29, 2023. Cycle 2 5FU Leucovorin Vectibix on May 04, 2023. Cycle 3 5FU Leucovorin Vectibix on May 11, 2023. Hypomagnesemia 409927828 E83.42 Patient returns on April 29, 2023. Magnesium level is 1.7 today. Will give 1 g magnesium IV. Hypokalemia 54957756 E87 .6 Patient returns on April 29, 2023. Potassium is low at 2.9. Will send prescripti on for potassium 20 mEq daily. Will follow-up labs again next week. Loss of appetite 5070393 6 R63.0 Patient has had nausea and decreased appetite since her cancer diagnosis. She can not tolerate her nutritiona l drinks. She does take Phenergan with relief. She continues to lose weight. Will send prescripti on for Megace. Acute conjunctivitis 537 75106 H10.32 Patient returns on May 11, 2023. She has had erythema, conjuntiva inflammati on, discharged and matted left eye. She has been using warm compresses . Will send prescripti on for eye drops for conjunctiv itis. Diarrhea 84420436 R19.7 She has had diarrhea since night. She has tried Imodium and Pepto. Discussed taking Lomotil instead. [id number] Addy Gonzales MD [facility] General Surgery [address] [place] [address] 05/07/2023 13:50:57 05/07/2023 15:14:30 Malignant tumor of ascending colon 332457285 C18.2 I have scheduled the patient for venous port placement. informed consent was obtained. Risks of the procedure including bleeding, infection, catheter complicati ons and damage to surroundin g structures were discussed [id number] Hanna Fournier PA-C [facility] Oncology and Hematolog y [address] [place] [address] 06/02/2023 09:27:10 06/02/2023 10:20:16 Malignant tumor of ascending colon 539315961 C18.2 CT scan of the abdomen and [...] 8.2 hematocrit 29.0. MCV 67.9. Platelet count 742273. Normal cell differenti al. Low serum folate [...] metastatic colorectal cancer. Discussed chemothera py with [place] based regimen with 5FU Leucovorin if [...] labs today. Metastatic malignant neoplasm to liver 63533400 C78.7 CT scan of the abdomen and [...] Findings concerning for metastatic colon cancer. Nausea 658764905 R11.0 As needed Zofran and Phenergan prescribed . Pain due t o neoplastic disease 6390237700 9102 G89.3 Right upper quadrant pain secondary to liver metastasis . Patient currently taking Tylenol. Discussed as needed oxycodone to limit Tylenol exposure. Anemia 450035615 D64.9 Right-side d colon mass concerning for malignancy . Will assess for any signs of iron deficiency . Most recent hemoglobin at 8.0. Concern for blood loss from colon mass. Patient reports dark stools. Adopted 194031884 Z62.89 8 Patient is adopted and discussed hereditary gene panel. Patient does have family history of her son having bladder cancer. Will send [facility] hereditary panel. Antineopla stic chemotherapy regimen 361503336 Z51.11 Cycle 1 5FU Leucovorin Vectibix on April 29, 2023. Cycle 2 5FU Leucovorin Vectibix on May 04, 2023. Cycle 3 5FU Leucovorin Vectibix on May 11, 2023. Hypomagnesemia 351341812 E83.42 Patient returns on April 29, 2023. Magnesium level is 1.7 today. Will give 1 g magnesium IV. Hypokalemia 43289829 E87 .6 Patient returns on April 29, 2023. Potassium is low at 2.9. Will send prescripti on for potassium 20 mEq daily. Will follow-up labs again next week. Loss of appetite 8709284 6 R63.0 Patient has had nausea and decreased appetite since her cancer diagnosis. She can not tolerate her nutritiona l drinks. She does take Phenergan with relief. She continues to lose weight. Will send prescripti on for Megace. Acute conjunctivitis 537 82347 H10.32 Patient returns on May 11, 2023. She has had erythema, conjuntiva inflammati on, discharged and matted left eye. She has been using warm compresses . Will send prescripti on for eye drops for conjunctiv itis. Diarrhea 49662895 R19.7 Diarrhea has resolved. Patient with recent C diff Deep venou s thrombosis 117309556 I82.409 Patient developed right lower extremity pain and edema. Venous duplex on May 28, 2023 with evidence of deep vein thrombosis . Started on Eliquis 5 mg 1 tab p.o. b.i.d.. Did not start with Eliquis starter pack due to recent bleeding. Patient had a DVT and a PE in 1990 after her hysterecto my. Will order hypercoagu lable panel today. Anxiety 38577384 F41.9 Patient has had increased anxiety. She is tearful and crying during her visit today due to all of her health problems. She does not want to take an antidepres melina at this time. Discussed low-dose Ativan. Muscle weakness 10854408 M62.81 Patient is feeling weak and is requesting a lift chair. Will see if insurance will cover. Discussed home health but patient declines at this time. [id number] Tomy King MD [facility] Oncology and Hematolog y [address] [place] [address] 06/08/2023 09:23:07 06/08/2023 11:39:14 Malignant tumor of ascending colon 982262863 C18.2 CT scan of the abdomen and [...] 8.2 hematocrit 29.0. MCV 67.9. Platelet count 954224. Normal cell differenti al. Low serum folate [...] labs today. Metastatic malignant neoplasm to liver 32784963 C78.7 CT scan of the abdomen and [...] Findings concerning for metastatic colon cancer. Nausea 061663731 R11.0 As needed Zofran and Phenergan prescribed . Pain due t o neoplastic disease 7335172863 9102 G89.3 Right upper quadrant pain secondary to liver metastasis . Patient currently taking Tylenol. Discussed as needed oxycodone to limit Tylenol exposure. Anemia 959220364 D64.9 Right-side d colon mass concerning for malignancy . Will assess for any signs of iron deficiency . Most recent hemoglobin at 8.0. Concern for blood loss from colon mass. Patient reports dark stools. Adopted 512614319 Z62.89 8 Patient is adopted and discussed hereditary gene panel. Patient does have family history of her son having bladder cancer. Will send [facility] hereditary panel. Antineopla stic chemotherapy regimen 692671195 Z51.11 Week 1 5FU Leucovorin Vectibix on [...] return for cycle 2 day 1 Hypomagnesemia 013251713 E83.42 Patient returns on April 29, 2023. Magnesium level is 1.7 today. Will give 1 g magnesium IV. Hypokalemia 62517577 E87 .6 Patient returns on April 29, 2023. Potassium is low at 2.9. Will send prescripti on for potassium 20 mEq daily. Will follow-up labs again next week. Loss of appetite 3065752 6 R63.0 Patient has had nausea and decreased appetite since her cancer diagnosis. She can not tolerate her nutritiona l drinks. She does take Phenergan with relief. She continues to lose weight. Will send prescripti on for Megace. Acute conjunctivitis 537 23438 H10.32 Patient returns on May 11, 2023. She has had erythema, conjuntiva inflammati on, discharged and matted left eye. She has been using warm compresses . Will send prescripti on for eye drops for conjunctiv itis.Will send in repeat prescripti on for eye drops. Diarrhea 73478464 R19.7 Diarrhea has resolved. Patient with recent C diff Deep venou s thrombosis 097102391 I82.409 Patient developed right lower extremity pain and edema.Veno us duplex on May 28, 2023 with evidence of deep vein thrombosis . Started on Eliquis 5 mg 1 tab p.o. b.i.d.. Did not start with Eliquis starter pack due to recent bleeding. Patient had a DVT and a PE in 1990 after her hysterecto my. Anxiety 30012828 F41.9 Patient has had increased anxiety. She is tearful and crying during her visit today due to all of her health problems. She does not want to take an antidepres melina at this time. Discussed low-dose Ativan. Improvemen t in mood overall on visit from June 08, 2023. [id number] Addy Gonzales MD [facility] General Surgery [address] [place] [address] 06/05/2023 10:23:30 06/05/2023 11:32:28 Malignant tumor of ascending colon 835950898 C18.2 Needs port placed, cannot do this [...] can save her the long drive in. [id number] Tomy King MD [facility] Oncology and Hematolog y [address] [place] [address] 06/22/2023 10:06:43 06/22/2023 12:44:59 Malignant tumor of ascending colon 884666568 C18.2 CT scan of the abdomen and [...] 8.2 hematocrit 29.0. MCV 67.9. Platelet count 824199. Normal cell differenti al. Low serum folate [...] next month. Metastatic malignant neoplasm to liver 54632985 C78.7 CT scan of the abdomen and [...] Findings concerning for metastatic colon cancer. Nausea 346831786 R11.0 As needed Zofran and Phenergan prescribed . Pain due t o neoplastic disease 9616571047 9102 G89.3 Right upper quadrant pain secondary to liver metastasis . Patient currently taking Tylenol. Discussed as needed oxycodone to limit Tylenol exposure. Anemia 941711903 D64.9 Right-side d colon mass concerning for malignancy . Will assess for any signs of iron deficiency . Most recent hemoglobin at 8.0. Concern for blood loss from colon mass. Patient reports dark stools. Adopted 222380574 Z62.89 8 Patient is adopted and discussed hereditary gene panel. Patient does have family history of her son having bladder cancer. Will send [facility] hereditary panel. Antineopla stic chemotherapy regimen 346848799 Z51.11 Week 1 5FU Leucovorin Vectibix on [...] and Vectibix on July 06, 2023. Hypokalemia 24468642 E87 .6 Patient returns on April 29, 2023. Potassium is low at 2.9. Will send prescripti on for potassium 20 mEq daily. Will follow-up labs again next week. Loss of appetite 3297913 6 R63.0 Patient has had nausea and decreased appetite since her cancer diagnosis. She can not tolerate her nutritiona l drinks. She does take Phenergan with relief. She continues to lose weight. Will send prescripti on for Megace. Acute conjunctivitis 537 71902 H10.32 Patient returns on May 11, 2023. She has had erythema, conjuntiva inflammati on, discharged and matted left eye. She has been using warm compresses . Will send prescripti on for eye drops for conjunctiv itis.Will send in repeat prescripti on for eye drops. Diarrhea 01395163 R19.7 Diarrhea has resolved. Patient with recent C diff Deep venou s thrombosis [id number] I82.409 Patient developed right lower extremity pain and edema.Veno us duplex on May 28, 2023 with evidence of deep vein thrombosis . Started on Eliquis 5 mg 1 tab p.o. b.i.d.. Did not start with Eliquis starter pack due to recent bleeding. Patient had a DVT and a PE in 1990 after her hysterecto my. Anxiety 14733379 F41.9 Patient has had increased anxiety. She is tearful and crying during her visit today due to all of her health problems. She does not want to take an antidepres melina at this time. Discussed low-dose Ativan. Improvemen t in mood overall on visit from June 08, 2023. [id number] Tomy King MD [facility] [address] [place] [address] 07/13/2023 09:25:11 07/13/2023 10:53:59 Malignant tumor of ascending colon 094245701 C18.2 CT scan of the abdomen and [...] 8.2 hematocrit 29.0. MCV 67.9. Platelet count 682833. Normal cell differenti al. Low serum folate [...] for now. Metastatic malignant neoplasm to liver 45747501 C78.7 CT scan of the abdomen and [...] Findings concerning for metastatic colon cancer. Nausea 541404731 R11.0 As needed Zofran and Phenergan prescribed . Pain due t o neoplastic disease [id number] 9102 G89.3 Right upper quadrant pain secondary to liver metastasis . Patient currently taking Tylenol. Discussed as needed oxycodone to limit Tylenol exposure. Anemia 285631122 D64.9 Right-side d colon mass concerning for malignancy . Will assess for any signs of iron deficiency . Most recent hemoglobin at 8.0. Concern for blood loss from colon mass. Patient reports dark stools. Adopted [id number] Z62.89 8 Patient is adopted and discussed hereditary gene panel. Patient does have family history of her son having bladder cancer. Will send [facility] hereditary panel. Antineopla stic chemotherapy regimen 147984431 Z51.11 Week 1 5FU Leucovorin Vectibix on April 29, 2023.Week 2 5FU Leucovorin Vectibix on May 04, 2023.Week 3 5FU Leucovorin Vectibix on May 11, 2023.Week 4 5FU Leucovorin and Vectibix on June 08, 2023.Day 29 of 5FU Leucovorin and Vectibix on June 22, 2023. Cycle 2 day 1 of 5FU Leucovorin and Vectibix on July 13, 2023. Hypokalemia 54731827 E87 .6 Patient returns on April 29, 2023. Potassium is low at 2.9. Will send prescripti on for potassium 20 mEq daily. Will follow-up labs again next week. Loss of appetite 3822858 6 R63.0 Patient has had nausea and decreased appetite since her cancer diagnosis. She can not tolerate her nutritiona l drinks. She does take Phenergan with relief. She continues to lose weight. Will send prescripti on for Megace. Acute conjunctivitis 537 99616 H10.32 Patient returns on May 11, 2023. She has had erythema, conjuntiva inflammati on, discharged and matted left eye. She has been using warm compresses . Will send prescripti on for eye drops for conjunctiv itis.Will send in repeat prescripti on for eye drops. Diarrhea 89909850 R19.7 Diarrhea has resolved. Patient with recent C diff Deep venou s thrombosis 265062119 I82.411 Patient developed right lower extremity pain and edema.Veno us duplex on May 28, 2023 with evidence of deep vein thrombosis . Started on Eliquis 5 mg 1 tab p.o. b.i.d.. Did not start with Eliquis starter pack due to recent bleeding. Patient had a DVT and a PE in 1990 after her hysterecto my. Anxiety 37472704 F41.9 Patient has had increased anxiety. She is tearful and crying during her visit today due to all of her health problems. She does not want to take an antidepres melina at this time. Discussed low-dose Ativan. Improvemen t in mood overall on visit from June 08, 2023. [id number] Hanna Fournier PA-C [facility] [address] [place] [address] 07/27/2023 09:02:25 07/27/2023 10:25:44 Malignant tumor of ascending colon 306748220 C18.2 CT scan of the abdomen and [...] 8.2 hematocrit 29.0. MCV 67.9. Platelet count 949436. Normal cell differenti al. Low serum folate [...] Will follow-up Metastatic malignant neoplasm to liver 73400351 C78.7 CT scan of the abdomen and [...] Findings concerning for metastatic colon cancer. Nausea 086904378 R11.0 As needed Zofran and Phenergan prescribed . Pain due t o neoplastic disease 2773142478 9102 G89.3 Right upper quadrant pain secondary to liver metastasis . Patient currently taking Tylenol. Discussed as needed oxycodone to limit Tylenol exposure. Anemia 374538315 D64.9 Right-side d colon mass concerning for malignancy . Will assess for any signs of iron deficiency . Most recent hemoglobin at 8.0. Concern for blood loss from colon mass. Patient reports dark stools. Adopted 105522413 Z62.89 8 Patient is adopted and discussed hereditary gene panel. Patient does have family history of her son having bladder cancer. Will send [facility] hereditary panel. Antineopla stic chemotherapy regimen 387015604 Z51.11 Week 1 5FU Leucovorin Vectibix on [...] and Vectibix on July 27, 2023. Hypokalemia 20333423 E87 .6 Patient returns on April 29, 2023. Potassium is low at 2.9. Will send prescripti on for potassium 20 mEq daily. Will follow-up labs again next week. Loss of appetite 4415989 6 R63.0 Patient has had nausea and decreased appetite since her cancer diagnosis. She can not tolerate her nutritiona l drinks. She does take Phenergan with relief. She continues to lose weight. Will send prescripti on for Megace. Acute conjunctivitis 537 01930 H10.32 Patient returns on May 11, 2023. She has had erythema, conjuntiva inflammati on, discharged and matted left eye. She has been using warm compresses . Will send prescripti on for eye drops for conjunctiv itis.Will send in repeat prescripti on for eye drops. Diarrhea 72234050 R19.7 Diarrhea has resolved. Patient with recent C diff Deep venou s thrombosis 660179084 I82.409 Patient developed right lower extremity pain and edema.Veno us duplex on May 28, 2023 with evidence of deep vein thrombosis . Started on Eliquis 5 mg 1 tab p.o. b.i.d.. Did not start with Eliquis starter pack due to recent bleeding. Patient had a DVT and a PE in 1990 after her hysterecto my. Anxiety 44881879 F41.9 Patient has had increased anxiety. She is tearful and crying during her visit today due to all of her health problems. She does not want to take an antidepres melina at this time. Discussed low-dose Ativan. Improvemen t in mood overall on visit from June 08, 2023. [id number] Hanna Fournier PA-C [facility] [address] [place] [address] 08/10/2023 09:01:37 08/10/2023 09:59:21 Malignant tumor of ascending colon 285496328 C18.2 CT scan of the abdomen and [...] 8.2 hematocrit 29.0. MCV 67.9. Platelet count 231246. Normal cell differenti al. Low serum folate [...] Will follow-up. Metastatic malignant neoplasm to liver 01779110 C78.7 CT scan of the abdomen and [...] Findings concerning for metastatic colon cancer. Nausea 633754013 R11.0 As needed Zofran and Phenergan prescribed . Pain due t o neoplastic disease 8896493095 9102 G89.3 Right upper quadrant pain secondary to liver metastasis . Patient currently taking Tylenol. Discussed as needed oxycodone to limit Tylenol exposure. Anemia 516104036 D64.9 Right-side d colon mass concerning for malignancy . Will assess for any signs of iron deficiency . Most recent hemoglobin at 8.0. Concern for blood loss from colon mass. Patient reports dark stools. Adopted 679832759 Z62.89 8 Patient is adopted and discussed hereditary gene panel. Patient does have family history of her son having bladder cancer. Will send [facility] hereditary panel. Antineopla stic chemotherapy regimen 462246071 Z51.11 Week 1 5FU Leucovorin Vectibix on [...] and Vectibix on August 10, 2023. Hypokalemia 66787475 E87 .6 Patient returns on April 29, 2023. Potassium is low at 2.9. Will send prescripti on for potassium 20 mEq daily. Will follow-up labs again next week. Loss of appetite 6158204 6 R63.0 Patient has had nausea and decreased appetite since her cancer diagnosis. She can not tolerate her nutritiona l drinks. She does take Phenergan with relief. She continues to lose weight. Will send prescripti on for Megace. Acute conjunctivitis 537 06782 H10.32 Patient returns on May 11, 2023. She has had erythema, conjuntiva inflammati on, discharged and matted left eye. She has been using warm compresses . Will send prescripti on for eye drops for conjunctiv itis.Will send in repeat prescripti on for eye drops. Diarrhea 30075474 R19.7 Diarrhea has resolved. Patient with recent C diff Deep venou s thrombosis 809660659 I82.409 Patient developed right lower extremity pain and edema.Veno us duplex on May 28, 2023 with evidence of deep vein thrombosis . Started on Eliquis 5 mg 1 tab p.o. b.i.d.. Did not start with Eliquis starter pack due to recent bleeding. Patient had a DVT and a PE in 1990 after her hysterecto my. Anxiety 17755292 F41.9 Patient has had increased anxiety. She is tearful and crying during her visit today due to all of her health problems. She does not want to take an antidepres melina at this time. Discussed low-dose Ativan. Improvemen t in mood overall on visit from June 08, 2023. [id number] Hanna Fournier PA-C [facility] [address] [place] [address] 08/24/2023 09:22:37 08/24/2023 09:52:19 Malignant tumor of ascending colon 102061562 C18.2 CT scan of the abdomen and [...] 8.2 hematocrit 29.0. MCV 67.9. Platelet count 907516. Normal cell differenti al. Low serum folate [...] Will follow-up Metastatic malignant neoplasm to liver 45778386 C78.7 CT scan of the abdomen and [...] Findings concerning for metastatic colon cancer. Nausea 488385696 R11.0 As needed Zofran and Phenergan prescribed . Pain due t o neoplastic disease 3190964817 9102 G89.3 Right upper quadrant pain secondary to liver metastasis . Patient currently taking Tylenol. Discussed as needed oxycodone to limit Tylenol exposure. Anemia 087644772 D64.9 Right-side d colon mass concerning for malignancy . Will assess for any signs of iron deficiency . Most recent hemoglobin at 8.0. Concern for blood loss from colon mass. Patient reports dark stools. Adopted 717262967 Z62.89 8 Patient is adopted and discussed hereditary gene panel. Patient does have family history of her son having bladder cancer. Will send [facility] hereditary panel. Antineopla stic chemotherapy regimen 575486695 Z51.11 Week 1 5FU Leucovorin Vectibix on [...] and Vectibix on August 24, 2023. Hypokalemia 02263821 E87 .6 Patient returns on April 29, 2023. Potassium is low at 2.9. Will send prescripti on for potassium 20 mEq daily. Will follow-up labs again next week. Loss of appetite 6679846 6 R63.0 Patient has had nausea and decreased appetite since her cancer diagnosis. She can not tolerate her nutritiona l drinks. She does take Phenergan with relief. She continues to lose weight. Will send prescripti on for Megace. Acute conjunctivitis 537 93688 H10.32 Patient returns on May 11, 2023. She has had erythema, conjuntiva inflammati on, discharged and matted left eye. She has been using warm compresses . Will send prescripti on for eye drops for conjunctiv itis.Will send in repeat prescripti on for eye drops. Diarrhea 90651733 R19.7 Diarrhea has resolved. Patient with recent C diff Deep venou s thrombosis 180057001 I82.409 Patient developed right lower extremity pain and edema.Veno us duplex on May 28, 2023 with evidence of deep vein thrombosis . Started on Eliquis 5 mg 1 tab p.o. b.i.d.. Did not start with Eliquis starter pack due to recent bleeding. Patient had a DVT and a PE in 1990 after her hysterecto my. Anxiety 19986563 F41.9 Patient has had increased anxiety. She is tearful and crying during her visit today due to all of her health problems. She does not want to take an antidepres melina at this time. Discussed low-dose Ativan. Improvemen t in mood overall on visit from June 08, 2023. [id number] Hanna Fournier PA-C [facility] [address] [place] [address] 09/07/2023 08:42:30 09/07/2023 09:21:28 Malignant tumor of ascending colon 854530249 C18.2 CT scan of the abdomen and [...] 8.2 hematocrit 29.0. MCV 67.9. Platelet count 401773. Normal cell differenti al. Low serum folate [...] Will follow-up. Metastatic malignant neoplasm to liver 51300563 C78.7 CT scan of the abdomen and [...] Findings concerning for metastatic colon cancer. Nausea 235556411 R11.0 As needed Zofran and Phenergan prescribed . Pain due t o neoplastic disease 2723698189 9102 G89.3 Right upper quadrant pain secondary to liver metastasis . Patient currently taking Tylenol. Discussed as needed oxycodone to limit Tylenol exposure. Anemia 466932774 D64.9 Right-side d colon mass concerning for malignancy . Will assess for any signs of iron deficiency . Most recent hemoglobin at 8.0. Concern for blood loss from colon mass. Patient reports dark stools. Adopted 017192167 Z62.89 8 Patient is adopted and discussed hereditary gene panel. Patient does have family history of her son having bladder cancer. Will send [facility] hereditary panel. Antineopla stic chemotherapy regimen 398164259 Z51.11 Week 1 5FU Leucovorin Vectibix on [...] Vectibix today secondary to conjunctiv itis Hypokalemia 94100114 E87 .6 Patient returns on April 29, 2023. Potassium is low at 2.9. Will send prescripti on for potassium 20 mEq daily. Will follow-up labs again next week. Loss of appetite 5879298 6 R63.0 Patient has had nausea and decreased appetite since her cancer diagnosis. She can not tolerate her nutritiona l drinks. She does take Phenergan with relief. She continues to lose weight. Will send prescripti on for Megace. Acute conjunctivitis 537 73328 H10.32 Patient returns on May 11, 2023. She has had erythema, conjuntiva inflammati on, discharged and matted left eye. She has been using warm compresses . Will send prescripti on for eye drops for conjunctiv itis.Will send in repeat prescripti on for eye drops. Diarrhea 74871144 R19.7 Diarrhea has resolved. Patient with recent C diff Deep venou s thrombosis 313693378 I82.409 Patient developed right lower extremity pain and edema.Veno us duplex on May 28, 2023 with evidence of deep vein thrombosis . Started on Eliquis 5 mg 1 tab p.o. b.i.d.. Did not start with Eliquis starter pack due to recent bleeding. Patient had a DVT and a PE in 1990 after her hysterecto my. Anxiety 96481258 F41.9 Patient has had increased anxiety. She is tearful and crying during her visit today due to all of her health problems. She does not want to take an antidepres melina at this time. Discussed low-dose Ativan. Improvemen t in mood overall on visit from June 08, 2023. [id number] Tomy King MD [facility] [address] [place] [address] 09/21/2023 09:41:41 09/21/2023 11:20:44 Malignant tumor of ascending colon 215297701 C18.2 CT scan of the abdomen and [...] 8.2 hematocrit 29.0. MCV 67.9. Platelet count 554597. Normal cell differenti al. Low serum folate [...] to improve. Metastatic malignant neoplasm to liver 51027793 C78.7 CT scan of the abdomen and [...] Findings concerning for metastatic colon cancer. Nausea 045779814 R11.0 As needed Zofran and Phenergan prescribed . Pain due t o neoplastic disease 9519697144 9102 G89.3 Right upper quadrant pain secondary to liver metastasis . Patient currently taking Tylenol. Discussed as needed oxycodone to limit Tylenol exposure. Anemia 844958317 D64.9 Right-side d colon mass concerning for malignancy . Will assess for any signs of iron deficiency . Most recent hemoglobin at 8.0. Concern for blood loss from colon mass. Patient reports dark stools. Adopted 618415802 Z62.89 8 Patient is adopted and discussed hereditary gene panel. Patient does have family history of her son having bladder cancer. Will send [facility] hereditary panel. Antineopla stic chemotherapy regimen 311162742 Z51.11 Week 1 5FU Leucovorin Vectibix on [...] dose held secondary to conjunctiv itis. Hypokalemia 01821771 E87 .6 Patient returns on April 29, 2023. Potassium is low at 2.9. Will send prescripti on for potassium 20 mEq daily. Will follow-up labs again next week. Loss of appetite 1978566 6 R63.0 Patient has had nausea and decreased appetite since her cancer diagnosis. She can not tolerate her nutritiona l drinks. She does take Phenergan with relief. She continues to lose weight. Will send prescripti on for Megace. Acute conjunctivitis 245 43585 H10.32 Patient returns on May 11, 2023. She has had erythema, conjuntiva inflammati on, discharged and matted left eye. She has been using warm compresses . Will send prescripti on for eye drops for conjunctiv itis.Will send in repeat prescripti on for eye drops. Diarrhea 19833788 R19.7 Diarrhea has resolved. Patient with recent C diff Deep venou s thrombosis 983320032 I82.409 Patient developed right lower extremity pain and edema.Veno us duplex on May 28, 2023 with evidence of deep vein thrombosis . Started on Eliquis 5 mg 1 tab p.o. b.i.d.. Did not start with Eliquis starter pack due to recent bleeding. Patient had a DVT and a PE in 1990 after her hysterecto my. Anxiety 15843192 F41.9 Patient has had increased anxiety. She is tearful and crying during her visit today due to all of her health problems. She does not want to take an antidepres melina at this time. Discussed low-dose Ativan. Improvemen t in mood overall on visit from June 08, 2023. [id number] Hanna Fournier PA-C [facility] [address] [facility] [address] [place] [address] 10/05/2023 09:19:08 10/05/2023 10:17:18 Malignant tumor of ascending colon 095535598 C18.2 CT scan of the abdomen and [...] 8.2 hematocrit 29.0. MCV 67.9. Platelet count 747905. Normal cell differenti al. Low serum folate [...] bilaterall y. Metastatic malignant neoplasm to liver 02974953 C78.7 CT scan of the abdomen and [...] Findings concerning for metastatic colon cancer. Nausea 960764703 R11.0 As needed Zofran and Phenergan prescribed . Pain due t o neoplastic disease 7076011580 9102 G89.3 Right upper quadrant pain secondary to liver metastasis . Patient currently taking Tylenol. Discussed as needed oxycodone to limit Tylenol exposure. Anemia 228319863 D64.9 Right-side d colon mass concerning for malignancy . Will assess for any signs of iron deficiency . Most recent hemoglobin at 8.0. Concern for blood loss from colon mass. Patient reports dark stools. Adopted 888497061 Z62.89 8 Patient is adopted and discussed hereditary gene panel. Patient does have family history of her son having bladder cancer. Will send [facility] hereditary panel. Antineopla stic chemotherapy regimen 209341656 Z51.11 Week 1 5FU Leucovorin Vectibix on [...] membranes of the eyes bilaterall y. Hypokalemia 81468640 E87 .6 Patient returns on April 29, 2023. Potassium is low at 2.9. Will send prescripti on for potassium 20 mEq daily. Will follow-up labs again next week. Loss of appetite 6455988 6 R63.0 Patient has had nausea and decreased appetite since her cancer diagnosis. She can not tolerate her nutritiona l drinks. She does take Phenergan with relief. She continues to lose weight. Will send prescripti on for Megace. Acute conjunctivitis 075 09262 H10.32 Patient returns on May 11, 2023. She has had erythema, conjuntiva inflammati on, discharged and matted left eye. She has been using warm compresses . Will send prescripti on for eye drops for conjunctiv itis.Will send in repeat prescripti on for eye drops. Diarrhea 53187392 R19.7 Diarrhea has resolved. Patient with recent C diff Deep venou s thrombosis 334820187 I82.409 Patient developed right lower extremity pain and edema.Veno us duplex on May 28, 2023 with evidence of deep vein thrombosis . Started on Eliquis 5 mg 1 tab p.o. b.i.d.. Did not start with Eliquis starter pack due to recent bleeding. Patient had a DVT and a PE in 1990 after her hysterecto my. Anxiety 08454878 F41.9 Patient has had increased anxiety. She is tearful and crying during her visit today due to all of her health problems. She does not want to take an antidepres melina at this time. Discussed low-dose Ativan. Improvemen t in mood overall on visit from June 08, 2023. [id number] Hanna Fournier PA-C [facility] [address] [place] [address] 10/19/2023 09:07:50 10/19/2023 10:19:57 Malignant tumor of ascending colon 836676810 C18.2 CT scan of the abdomen and [...] 8.2 hematocrit 29.0. MCV 67.9. Platelet count 283549. Normal cell differenti al. Low serum folate [...] appropriat froilan. Metastatic malignant neoplasm to liver 32884792 C78.7 CT scan of the abdomen and [...] Findings concerning for metastatic colon cancer. Nausea 734000186 R11.0 As needed Zofran and Phenergan prescribed . Pain due t o neoplastic disease 1276894200 9102 G89.3 Right upper quadrant pain secondary to liver metastasis . Patient currently taking Tylenol. Discussed as needed oxycodone to limit Tylenol exposure. Anemia 857356383 D64.9 Right-side d colon mass concerning for malignancy . Will assess for any signs of iron deficiency . Most recent hemoglobin at 8.0. Concern for blood loss from colon mass. Patient reports dark stools. Adopted 757951319 Z62.89 8 Patient is adopted and discussed hereditary gene panel. Patient does have family history of her son having bladder cancer. Will send [facility] hereditary panel. Antineopla stic chemotherapy regimen 985044611 Z51.11 Week 1 5FU Leucovorin Vectibix on [...] with Vectibix on October 19, 2023. Hypokalemia 68184843 E87 .6 Patient returns on April 29, 2023. Potassium is low at 2.9. Will send prescripti on for potassium 20 mEq daily. Will follow-up labs again next week. Loss of appetite 9206664 6 R63.0 Patient has had nausea and decreased appetite since her cancer diagnosis. She can not tolerate her nutritiona l drinks. She does take Phenergan with relief. She continues to lose weight. Will send prescripti on for Megace. Acute conjunctivitis 784 93429 H10.32 Patient returns on May 11, 2023. She has had erythema, conjuntiva inflammati on, discharged and matted left eye. She has been using warm compresses . Will send prescripti on for eye drops for conjunctiv itis.Will send in repeat prescripti on for eye drops. Diarrhea 08475342 R19.7 Diarrhea has resolved. Patient with recent C diff Deep venou s thrombosis 794389895 I82.409 Patient developed right lower extremity pain and edema.Veno us duplex on May 28, 2023 with evidence of deep vein thrombosis . Started on Eliquis 5 mg 1 tab p.o. b.i.d.. Did not start with Eliquis starter pack due to recent bleeding. Patient had a DVT and a PE in 1990 after her hysterecto my. Anxiety 90313797 F41.9 Patient has had increased anxiety. She is tearful and crying during her visit today due to all of her health problems. She does not want to take an antidepres melina at this time. Discussed low-dose Ativan. Improvemen t in mood overall on visit from June 08, 2023. [id number] Hanna Fournier PA-C [facility] [address] [place] [address] 11/02/2023 09:20:10 11/02/2023 09:58:16 Malignant tumor of ascending colon 825162617 C18.2 CT scan of the abdomen and [...] 8.2 hematocrit 29.0. MCV 67.9. Platelet count 977578. Normal cell differenti al. Low serum folate [...] ed Eliquis Metastatic malignant neoplasm to liver 31815261 C78.7 CT scan of the abdomen and [...] Findings concerning for metastatic colon cancer. Nausea [id number] R11.0 As needed Zofran and Phenergan prescribed . Pain due t o neoplastic disease [id number] 9102 G89.3 Right upper quadrant pain secondary to liver metastasis . Patient currently taking Tylenol. Discussed as needed oxycodone to limit Tylenol exposure. Anemia 033808332 D64.9 Right-side d colon mass concerning for malignancy . Will assess for any signs of iron deficiency . Most recent hemoglobin at 8.0. Concern for blood loss from colon mass. Patient reports dark stools. Adopted [id number] Z62.89 8 Patient is adopted and discussed hereditary gene panel. Patient does have family history of her son having bladder cancer. Will send [facility] hereditary panel. Antineopla stic chemotherapy regimen 899046091 Z51.11 Week 1 5FU Leucovorin Vectibix on [...] with Vectibix on November 02, 2023. Hypokalemia 85270977 E87 .6 Patient returns on April 29, 2023. Potassium is low at 2.9. Will send prescripti on for potassium 20 mEq daily. Will follow-up labs again next week. Loss of appetite 7820913 6 R63.0 Patient has had nausea and decreased appetite since her cancer diagnosis. She can not tolerate her nutritiona l drinks. She does take Phenergan with relief. She continues to lose weight. Will send prescripti on for Megace. Acute conjunctivitis 537 81719 H10.32 Patient returns on May 11, 2023. She has had erythema, conjuntiva inflammati on, discharged and matted left eye. She has been using warm compresses . Will send prescripti on for eye drops for conjunctiv itis.Will send in repeat prescripti on for eye drops. Diarrhea 35914485 R19.7 Diarrhea has resolved. Patient with recent C diff Deep venou s thrombosis [id number] I82.409 Patient developed right lower extremity pain and edema.Veno us duplex on May 28, 2023 with evidence of deep vein thrombosis . Started on Eliquis 5 mg 1 tab p.o. b.i.d.. Did not start with Eliquis starter pack due to recent bleeding. Patient had a DVT and a PE in 1990 after her hysterecto my. Anxiety 34718173 F41.9 Patient has had increased anxiety. She is tearful and crying during her visit today due to all of her health problems. She does not want to take an antidepres melina at this time. Discussed low-dose Ativan. Improvemen t in mood overall on visit from June 08, 2023. [id number] Addy Gonzales MD [facility] General Surgery [address] [place] [address] 11/03/2023 13:09:58 11/03/2023 14:02:01 Malignant tumor of ascending colon 224760831 C18.2 I have scheduled the patient for [...] as a part of this patient's care. [id number] Hanna Fournier PA-C [facility] Oncology and Hematolog y [address] [address] [place] [address] 11/23/2023 09:05:54 11/23/2023 09:52:19 Malignant tumor of ascending colon 310835385 C18.2 CT scan of the abdomen and [...] 8.2 hematocrit 29.0. MCV 67.9. Platelet count 558052. Normal cell differenti al. Low serum folate [...] mg daily. Metastatic malignant neoplasm to liver 85453370 C78.7 CT scan of the abdomen and [...] Findings concerning for metastatic colon cancer. Nausea 228528225 R11.0 As needed Zofran and Phenergan prescribed . Pain due t o neoplastic disease [id number] 9102 G89.3 Right upper quadrant pain secondary to liver metastasis . Patient currently taking Tylenol. Discussed as needed oxycodone to limit Tylenol exposure. Anemia 094601798 D64.9 Right-side d colon mass concerning for malignancy . Will assess for any signs of iron deficiency . Most recent hemoglobin at 8.0. Concern for blood loss from colon mass. Patient reports dark stools. Adopted 028847814 Z62.89 8 Patient is adopted and discussed hereditary gene panel. Patient does have family history of her son having bladder cancer. Will send [facility] hereditary panel. Antineopla stic chemotherapy regimen 194694845 Z51.11 Week 1 5FU Leucovorin Vectibix on [...] with Vectibix on November 23, 2023. Hypokalemia 47791129 E87 .6 Patient returns on April 29, 2023. Potassium is low at 2.9. Will send prescripti on for potassium 20 mEq daily. Will follow-up labs again next week. Loss of appetite 7114550 6 R63.0 Patient has had nausea and decreased appetite since her cancer diagnosis. She can not tolerate her nutritiona l drinks. She does take Phenergan with relief. She continues to lose weight. Will send prescripti on for Megace. Acute conjunctivitis 537 06756 H10.32 Patient returns on May 11, 2023. She has had erythema, conjuntiva inflammati on, discharged and matted left eye. She has been using warm compresses . Will send prescripti on for eye drops for conjunctiv itis.Will send in repeat prescripti on for eye drops. Diarrhea 19208040 R19.7 Diarrhea has resolved. Patient with recent C diff Deep venou s thrombosis 097026317 I82.409 Patient developed right lower extremity pain and edema.Veno us duplex on May 28, 2023 with evidence of deep vein thrombosis . Started on Eliquis 5 mg 1 tab p.o. b.i.d.. Did not start with Eliquis starter pack due to recent bleeding. Patient had a DVT and a PE in 1990 after her hysterecto my. Anxiety 84194372 F41.9 Patient has had increased anxiety. She is tearful and crying during her visit today due to all of her health problems. She does not want to take an antidepres melina at this time. Discussed low-dose Ativan. Improvemen t in mood overall on visit from June 08, 2023. Mixed anxi ety and depressive disorder 115506437 F41.8 Patient returns on November 23, 2023. [...] Mirtazapin e dose to 30 mg daily. [id number] Tomy King MD [facility] Oncology and Hematolog y [address] [place] [address] 12/07/2023 09:01:54 12/07/2023 09:40:34 Malignant tumor of ascending colon 568640824 C18.2 CT scan of the abdomen and [...] 8.2 hematocrit 29.0. MCV 67.9. Platelet count 523397. Normal cell differenti al. Low serum folate [...] 2 weeks. Metastatic malignant neoplasm to liver 58605797 C78.7 CT scan of the abdomen and [...] Findings concerning for metastatic colon cancer. Nausea 907067503 R11.0 As needed Zofran and Phenergan prescribed . Pain due t o neoplastic disease 3052439458 9102 G89.3 Right upper quadrant pain secondary to liver metastasis . Patient currently taking Tylenol. Discussed as needed oxycodone to limit Tylenol exposure. Anemia 033274448 D64.9 Right-side d colon mass concerning for malignancy . Will assess for any signs of iron deficiency . Most recent hemoglobin at 8.0. Concern for blood loss from colon mass. Patient reports dark stools. Adopted 118207728 Z62.89 8 Patient is adopted and discussed hereditary gene panel. Patient does have family history of her son having bladder cancer. Will send [facility] hereditary panel. Antineopla stic chemotherapy regimen 574263125 Z51.11 Week 1 5FU Leucovorin Vectibix on [...] with Vectibix on December 07, 2023. Hypokalemia 87930397 E87 .6 Patient returns on April 29, 2023. Potassium is low at 2.9. Will send prescripti on for potassium 20 mEq daily. Will follow-up labs again next week. Deep venou s thrombosis 519719331 I82.409 Patient developed right lower extremity pain and edema.Veno us duplex on May 28, 2023 with evidence of deep vein thrombosis . Started on Eliquis 5 mg 1 tab p.o. b.i.d.. Did not start with Eliquis starter pack due to recent bleeding. Patient had a DVT and a PE in 1990 after her hysterecto my. Mixed anxi ety and depressive disorder 448970667 F41.8 Patient returns on November 23, 2023. [...] to 30 mg daily. Atopic conjunctivitis 23 2916741 H10.12 Patient with conjunctiv itis of the left eye. Holding Vectibix today on December 07, 2023. Continue with current therapy. Will follow up again in 2 weeks. [id number] Hanna Fournier PA-C [facility] Oncology and Hematolog y [address] [place] [address] 12/21/2023 09:48:25 12/21/2023 10:21:03 Malignant tumor of ascending colon 621793513 C18.2 CT scan of the abdomen and [...] 8.2 hematocrit 29.0. MCV 67.9. Platelet count 960899. Normal cell differenti al. Low serum folate [...] 2 weeks. Metastatic malignant neoplasm to liver 42251613 C78.7 CT scan of the abdomen and [...] Findings concerning for metastatic colon cancer. Nausea 079117145 R11.0 As needed Zofran and Phenergan prescribed . Pain due t o neoplastic disease 8066574154 9102 G89.3 Right upper quadrant pain secondary to liver metastasis . Patient currently taking Tylenol. Discussed as needed oxycodone to limit Tylenol exposure. Anemia 213437665 D64.9 Right-side d colon mass concerning for malignancy . Will assess for any signs of iron deficiency . Most recent hemoglobin at 8.0. Concern for blood loss from colon mass. Patient reports dark stools. Adopted 310136858 Z62.89 8 Patient is adopted and discussed hereditary gene panel. Patient does have family history of her son having bladder cancer. Will send [facility] hereditary panel. Antineopla stic chemotherapy regimen 588960497 Z51.11 Week 1 5FU Leucovorin Vectibix on [...] with Vectibix on November 21, 2023. Hypokalemia 70667439 E87 .6 Patient returns on April 29, 2023. Potassium is low at 2.9. Will send prescripti on for potassium 20 mEq daily. Will follow-up labs again next week. Deep venou s thrombosis 475496689 I82.409 Patient developed right lower extremity pain and edema.Veno us duplex on May 28, 2023 with evidence of deep vein thrombosis . Started on Eliquis 5 mg 1 tab p.o. b.i.d.. Did not start with Eliquis starter pack due to recent bleeding. Patient had a DVT and a PE in 1990 after her hysterecto my. Mixed anxi ety and depressive disorder 389353245 F41.8 Patient returns on November 23, 2023. [...] to 30 mg daily. Atopic conjunctivitis 23 6042398 H10.12 Patient with conjunctiv itis of the left eye. Held Vectibix on December 07, 2023. Continue with current therapy. Will follow up again in 2 weeks. [id number] Hanna Fournier PA-C [facility] Oncology and Hematolog [facility] [address] [place] [address] 01/04/2024 09:55:59 01/04/2024 10:32:04 Malignant tumor of ascending colon 530510741 C18.2 CT scan of the abdomen and [...] 8.2 hematocrit 29.0. MCV 67.9. Platelet count 572583. Normal cell differenti al. Low serum folate [...] January 2024. Metastatic malignant neoplasm to liver 89707834 C78.7 CT scan of the abdomen and [...] Findings concerning for metastatic colon cancer. Nausea 504819645 R11.0 As needed Zofran and Phenergan prescribed . Pain due t o neoplastic disease 0274856223 9102 G89.3 Right upper quadrant pain secondary to liver metastasis . Patient currently taking Tylenol. Discussed as needed oxycodone to limit Tylenol exposure. Anemia 601508414 D64.9 Right-side d colon mass concerning for malignancy . Will assess for any signs of iron deficiency . Most recent hemoglobin at 8.0. Concern for blood loss from colon mass. Patient reports dark stools. Adopted 349206335 Z62.89 8 Patient is adopted and discussed hereditary gene panel. Patient does have family history of her son having bladder cancer. Will send [facility] hereditary panel. Antineopla stic chemotherapy regimen 738246266 Z51.11 Week 1 5FU Leucovorin Vectibix on [...] without Vectibix on January 04, 2024. Hypokalemia 81953060 E87 .6 Patient returns on April 29, 2023. Potassium is low at 2.9. Will send prescripti on for potassium 20 mEq daily. Will follow-up labs again next week. Deep venou s thrombosis 645400439 I82.409 Patient developed right lower extremity pain and edema.Veno us duplex on May 28, 2023 with evidence of deep vein thrombosis . Started on Eliquis 5 mg 1 tab p.o. b.i.d.. Did not start with Eliquis starter pack due to recent bleeding. Patient had a DVT and a PE in 1990 after her hysterecto my. Mixed anxi ety and depressive disorder 786093519 F41.8 Patient returns on November 23, 2023. [...] to 30 mg daily. Atopic conjunctivitis 23 7631109 H10.12 Patient with conjunctiv itis of the left eye. Held Vectibix on December 07, 2023. Continue with current therapy. Will follow up again in 2 weeks. Iron defic iency anemia 53076243 D50.9 [id number] Hanna Fournier PA-C [facility] Oncology and Hematolog y [address] [facility] [address] [place] [address] 01/25/2024 09:42:09 01/25/2024 10:49:14 Malignant tumor of ascending colon 838427089 C18.2 CT scan of the abdomen and [...] 8.2 hematocrit 29.0. MCV 67.9. Platelet count 723441. Normal cell differenti al. Low serum folate [...] Will schedule. Metastatic malignant neoplasm to liver 71783631 C78.7 CT scan of the abdomen and [...] Findings concerning for metastatic colon cancer. Nausea 844150099 R11.0 As needed Zofran and Phenergan prescribed . Pain due t o neoplastic disease 0643461676 9102 G89.3 Right upper quadrant pain secondary to liver metastasis . Patient currently taking Tylenol. Discussed as needed oxycodone to limit Tylenol exposure. Anemia 286479680 D64.9 Right-side d colon mass concerning for malignancy . Will assess for any signs of iron deficiency . Most recent hemoglobin at 8.0. Concern for blood loss from colon mass. Patient reports dark stools. Adopted 539915840 Z62.89 8 Patient is adopted and discussed hereditary gene panel. Patient does have family history of her son having bladder cancer. Will send [facility] hereditary panel. Antineopla stic chemotherapy regimen 401585519 Z51.11 Week 1 5FU Leucovorin Vectibix on [...] with Vectibix on January 25, 2024. Hypokalemia 03938683 E87 .6 Patient returns on April 29, 2023. Potassium is low at 2.9. Will send prescripti on for potassium 20 mEq daily. Will follow-up labs again next week. Deep venou s thrombosis 886888962 I82.409 Patient developed right lower extremity pain and edema.Veno us duplex on May 28, 2023 with evidence of deep vein thrombosis . Started on Eliquis 5 mg 1 tab p.o. b.i.d.. Did not start with Eliquis starter pack due to recent bleeding. Patient had a DVT and a PE in 1990 after her hysterecto my. Mixed anxi ety and depressive disorder 931456231 F41.8 Patient returns on November 23, 2023. [...] to 30 mg daily. Atopic conjunctivitis 23 0794570 H10.12 Patient with conjunctiv itis of the left eye. Held Vectibix on December 07, 2023. Continue with current therapy. Will follow up again in 2 weeks. Iron defic iency anemia 07686635 D50.9 [id number] Hanna Fournier PA-C [facility] Oncology and Hematolog [facility] [address] [place] [address] 02/08/2024 09:30:04 02/08/2024 10:49:29 Malignant tumor of ascending colon 327167634 C18.2 CT scan of the abdomen and [...] 8.2 hematocrit 29.0. MCV 67.9. Platelet count 569840. Normal cell differenti al. Low serum folate [...] follow-up imaging. Metastatic malignant neoplasm to liver 30076254 C78.7 CT scan of the abdomen and [...] Findings concerning for metastatic colon cancer. Nausea 606933040 R11.0 As needed Zofran and Phenergan prescribed . Pain due t o neoplastic disease 2706950907 9102 G89.3 Right upper quadrant pain secondary to liver metastasis . Patient currently taking Tylenol. Discussed as needed oxycodone to limit Tylenol exposure. Anemia 902051331 D64.9 Right-side d colon mass concerning for malignancy . Will assess for any signs of iron deficiency . Most recent hemoglobin at 8.0. Concern for blood loss from colon mass. Patient reports dark stools. Adopted 985013101 Z62.89 8 Patient is adopted and discussed hereditary gene panel. Patient does have family history of her son having bladder cancer. Will send [facility] hereditary panel. Antineopla stic chemotherapy regimen 786671548 Z51.11 Week 1 5FU Leucovorin Vectibix on [...] without Vectibix on February 08, 2024. Hypokalemia 36241532 E87 .6 Patient returns on April 29, 2023. Potassium is low at 2.9. Will send prescripti on for potassium 20 mEq daily. Will follow-up labs again next week. Deep venou s thrombosis 218046618 I82.409 Patient developed right lower extremity pain and edema.Veno us duplex on May 28, 2023 with evidence of deep vein thrombosis . Started on Eliquis 5 mg 1 tab p.o. b.i.d.. Did not start with Eliquis starter pack due to recent bleeding. Patient had a DVT and a PE in 1990 after her hysterecto my. Mixed anxi ety and depressive disorder 569047136 F41.8 Patient returns on November 23, 2023. [...] to 30 mg daily. Atopic conjunctivitis 23 8547349 H10.12 Patient with conjunctiv itis of the left eye. Held Vectibix on December 07, 2023. Continue with current therapy. Will follow up again in 2 weeks. Iron defic iency anemia 14088757 D50.9 Will follow up labs Insomnia 234255899 G47.0 0 Patient returns on February 08, 2024. She has had difficulty sleeping for most of her life. She has tried multiple medication s without relief. She is tried Mirtazapin e and lorazepam without improvemen t of insomnia. Discussed trying trazodone instead. Will send prescripti on. Will send prescripti on for Requip for restless legs. Restless legs 12897229 G 25.81 Patient returns on February 08, 2024. She has had difficulty sleeping for most of her life. She has tried multiple medication s without relief. She is tried Mirtazapin e and lorazepam without improvemen t of insomnia. Discussed trying trazodone instead. Will send prescripti on. Will send prescripti on for Requip for restless legs. [id number] Hanna Fournier PA-C [facility] Oncology and Hematolog y [address] [place] [address] 02/22/2024 10:08:45 02/22/2024 10:41:02 Malignant tumor of ascending colon 172758942 C18.2 CT scan of the abdomen and [...] 8.2 hematocrit 29.0. MCV 67.9. Platelet count 812946. Normal cell differenti al. Low serum folate [...] 15, 2024. Metastatic malignant neoplasm to liver 22128639 C78.7 CT scan of the abdomen and [...] Findings concerning for metastatic colon cancer. Nausea 796710174 R11.0 As needed Zofran and Phenergan prescribed . Pain due t o neoplastic disease 8898377979 9102 G89.3 Right upper quadrant pain secondary to liver metastasis . Patient currently taking Tylenol. Discussed as needed oxycodone to limit Tylenol exposure. Anemia 617031183 D64.9 Right-side d colon mass concerning for malignancy . Will assess for any signs of iron deficiency . Most recent hemoglobin at 8.0. Concern for blood loss from colon mass. Patient reports dark stools. Adopted 723959236 Z62.89 8 Patient is adopted and discussed hereditary gene panel. Patient does have family history of her son having bladder cancer. Will send [facility] hereditary panel. Antineopla stic chemotherapy regimen 583261865 Z51.11 Week 1 5FU Leucovorin Vectibix on [...] with Vectibix on February 22, 2024. Hypokalemia 09910923 E87 .6 Patient returns on April 29, 2023. Potassium is low at 2.9. Will send prescripti on for potassium 20 mEq daily. Will follow-up labs again next week. Deep venou s thrombosis 325448254 I82.409 Patient developed right lower extremity pain and edema.Veno us duplex on May 28, 2023 with evidence of deep vein thrombosis . Started on Eliquis 5 mg 1 tab p.o. b.i.d.. Did not start with Eliquis starter pack due to recent bleeding. Patient had a DVT and a PE in 1990 after her hysterecto my. Mixed anxi ety and depressive disorder 641204945 F41.8 Patient returns on November 23, 2023. [...] to 30 mg daily. Atopic conjunctivitis 23 3146351 H10.12 Patient with conjunctiv itis of the left eye. Held Vectibix on December 07, 2023. Continue with current therapy. Will follow up again in 2 weeks. Iron defic iency anemia 71739462 D50.9 Will follow up labs Insomnia 401955048 G47.0 0 Patient returns on February 08, 2024. She has had difficulty sleeping for most of her life. She has tried multiple medication s without relief. She is tried Mirtazapin e and lorazepam without improvemen t of insomnia. Discussed trying trazodone instead. Will send prescripti on. Will send prescripti on for Requip for restless legs. Restless legs 25748796 G 25.81 Patient returns on February 08, 2024. She has had difficulty sleeping for most of her life. She has tried multiple medication s without relief. She is tried Mirtazapin e and lorazepam without improvemen t of insomnia. Discussed trying trazodone instead. Will send prescripti on. Will send prescripti on for Requip for restless legs. Infection of skin and/or subcutaneous tissue 02565040 L08.9 Patient returns on February 22, 2024. Patient has paronychia of the left ring finger after pulling a piece of loose skin yesterday. No abscess or drainage present. Discussed topical antibiotic s plus warm water soaks. Will send prescripti on. Discussed if does not improve or worsens will do oral antibiotic s. Will follow-up. [id number] Hanna Fournier PA-C [facility] Oncology and Hematolog y [address] [place] [address] 03/07/2024 10:12:33 03/07/2024 11:14:04 Malignant tumor of ascending colon 389352608 C18.2 CT scan of the abdomen and [...] 8.2 hematocrit 29.0. MCV 67.9. Platelet count 551192. Normal cell differenti al. Low serum folate [...] 15, 2024. Metastatic malignant neoplasm to liver 07443769 C78.7 CT scan of the abdomen and [...] Findings concerning for metastatic colon cancer. Nausea 907442217 R11.0 As needed Zofran and Phenergan prescribed . Pain due t o neoplastic disease 7624094444 9102 G89.3 Right upper quadrant pain secondary to liver metastasis . Patient currently taking Tylenol. Discussed as needed oxycodone to limit Tylenol exposure. Anemia 713909772 D64.9 Right-side d colon mass concerning for malignancy . Will assess for any signs of iron deficiency . Most recent hemoglobin at 8.0. Concern for blood loss from colon mass. Patient reports dark stools. Adopted 555790582 Z62.89 8 Patient is adopted and discussed hereditary gene panel. Patient does have family history of her son having bladder cancer. Will send [facility] hereditary panel. Antineopla stic chemotherapy regimen 282276893 Z51.11 Week 1 5FU Leucovorin Vectibix on [...] with Vectibix on March 07, 2024. Hypokalemia 53563192 E87 .6 Patient returns on April 29, 2023. Potassium is low at 2.9. Will send prescripti on for potassium 20 mEq daily. Will follow-up labs again next week. Deep venou s thrombosis 777341507 I82.409 Patient developed right lower extremity pain and edema.Veno us duplex on May 28, 2023 with evidence of deep vein thrombosis . Started on Eliquis 5 mg 1 tab p.o. b.i.d.. Did not start with Eliquis starter pack due to recent bleeding. Patient had a DVT and a PE in 1990 after her hysterecto my. Mixed anxi ety and depressive disorder 037597228 F41.8 Patient returns on November 23, 2023. [...] to 30 mg daily. Atopic conjunctivitis 23 3753847 H10.12 Patient with conjunctiv itis of the left eye. Held Vectibix on December 07, 2023. Continue with current therapy. Will follow up again in 2 weeks. Iron defic iency anemia 80170216 D50.9 Will follow up labs Insomnia 844131044 G47.0 0 Patient returns on February 08, 2024. She has had difficulty sleeping for most of her life. She has tried multiple medication s without relief. She is tried Mirtazapin e and lorazepam without improvemen t of insomnia. Discussed trying trazodone instead. Will send prescripti on. Will send prescripti on for Requip for restless legs. Restless legs 03600813 G 25.81 Patient returns on February 08, 2024. She has had difficulty sleeping for most of her life. She has tried multiple medication s without relief. She is tried Mirtazapin e and lorazepam without improvemen t of insomnia. Discussed trying trazodone instead. Will send prescripti on. Will send prescripti on for Requip for restless legs. Infection of skin and/or subcutaneous tissue 04159721 L08.9 Patient returns on February 22, 2024. Patient has paronychia of the left ring finger after pulling a piece of loose skin yesterday. No abscess or drainage present. Discussed topical antibiotic s plus warm water soaks. Will send prescripti on. Discussed if does not improve or worsens will do oral antibiotic s. Will follow-up. This has resolved. [id number] Hanna Fournier PA-C [facility] Oncology [facility] Hematolog [facility] [address] [place] [address] 03/21/2024 09:44:36 03/21/2024 10:52:41 Malignant tumor of ascending colon 772519550 C18.2 CT scan of the abdomen and [...] 8.2 hematocrit 29.0. MCV 67.9. Platelet count 559514. Normal cell differenti al. Low serum folate [...] current therapy. Metastatic malignant neoplasm to liver 59140646 C78.7 CT scan of the abdomen and [...] Findings concerning for metastatic colon cancer. Nausea 016052209 R11.0 As needed Zofran and Phenergan prescribed . Pain due t o neoplastic disease [id number] 9102 G89.3 Right upper quadrant pain secondary to liver metastasis . Patient currently taking Tylenol. Discussed as needed oxycodone to limit Tylenol exposure. Anemia 303991857 D64.9 Right-side d colon mass concerning for malignancy . Will assess for any signs of iron deficiency . Most recent hemoglobin at 8.0. Concern for blood loss from colon mass. Patient reports dark stools. Adopted [id number] Z62.89 8 Patient is adopted and discussed hereditary gene panel. Patient does have family history of her son having bladder cancer. Will send [facility] hereditary panel. Antineopla stic chemotherapy regimen 779898232 Z51.11 Week 1 5FU Leucovorin Vectibix on [...] with Vectibix on March 21, 2024. Hypokalemia 04770798 E87 .6 Patient returns on April 29, 2023. Potassium is low at 2.9. Will send prescripti on for potassium 20 mEq daily. Will follow-up labs again next week. Deep venou s thrombosis 421658484 I82.409 Patient developed right lower extremity pain and edema.Veno us duplex on May 28, 2023 with evidence of deep vein thrombosis . Started on Eliquis 5 mg 1 tab p.o. b.i.d.. Did not start with Eliquis starter pack due to recent bleeding. Patient had a DVT and a PE in 1990 after her hysterecto my. Mixed anxi ety and depressive disorder 920093573 F41.8 Patient returns on November 23, 2023. [...] to 30 mg daily. Atopic conjunctivitis 23 1547015 H10.12 Patient with conjunctiv itis of the left eye. Held Vectibix on December 07, 2023. Continue with current therapy. Will follow up again in 2 weeks. Iron defic iency anemia 17252744 D50.9 Will follow up labs Insomnia 204110102 G47.0 0 Patient returns on February 08, 2024. She has had difficulty sleeping for most of her life. She has tried multiple medication s without relief. She is tried Mirtazapin e and lorazepam without improvemen t of insomnia. Discussed trying trazodone instead. Will send prescripti on. Will send prescripti on for Requip for restless legs. Restless legs 75699783 G 25.81 Patient returns on February 08, 2024. She has had difficulty sleeping for most of her life. She has tried multiple medication s without relief. She is tried Mirtazapin e and lorazepam without improvemen t of insomnia. Discussed trying trazodone instead. Prescripti on sent for Requip for restless legs. [id number] Hanna Fournier PA-C [facility] [address] [facility] [address] [place] [address] 04/04/2024 09:54:49 04/04/2024 10:42:05 Malignant tumor of ascending colon 919727743 C18.2 CT scan of the abdomen and [...] 8.2 hematocrit 29.0. MCV 67.9. Platelet count 804405. Normal cell differenti al. Low serum folate [...] current therapy. Metastatic malignant neoplasm to liver 43946602 C78.7 CT scan of the abdomen and [...] Findings concerning for metastatic colon cancer. Nausea 055252099 R11.0 As needed Zofran and Phenergan prescribed . Pain due t o neoplastic disease 7222444073 9102 G89.3 Right upper quadrant pain secondary to liver metastasis . Patient currently taking Tylenol. Discussed as needed oxycodone to limit Tylenol exposure. Anemia 599507252 D64.9 Right-side d colon mass concerning for malignancy . Will assess for any signs of iron deficiency . Most recent hemoglobin at 8.0. Concern for blood loss from colon mass. Patient reports dark stools. Adopted 265304277 Z62.89 8 Patient is adopted and discussed hereditary gene panel. Patient does have family history of her son having bladder cancer. Will send [facility] hereditary panel. Antineopla stic chemotherapy regimen 413117423 Z51.11 Week 1 5FU Leucovorin Vectibix on [...] without Vectibix on April 04, 2024. Hypokalemia 50331718 E87 .6 Patient returns on April 29, 2023. Potassium is low at 2.9. Will send prescripti on for potassium 20 mEq daily. Will follow-up labs again next week. Deep venou s thrombosis 304550884 I82.409 Patient developed right lower extremity pain and edema.Veno us duplex on May 28, 2023 with evidence of deep vein thrombosis . Started on Eliquis 5 mg 1 tab p.o. b.i.d.. Did not start with Eliquis starter pack due to recent bleeding. Patient had a DVT and a PE in 1990 after her hysterecto my. Mixed anxi ety and depressive disorder 257205583 F41.8 Patient returns on November 23, 2023. [...] prescripti on for Cymbalta. Atopic conjunctivitis 23 6855142 H10.12 Patient with conjunctiv itis of the left eye. Held Vectibix on December 07, 2023. Continue with current therapy. Will follow up again in 2 weeks. Iron defic iency anemia 17890175 D50.9 Will follow up labs Insomnia 652798885 G47.0 0 Patient returns on February 08, 2024. She has had difficulty sleeping for most of her life. She has tried multiple medication s without relief. She is tried Mirtazapin e and lorazepam without improvemen t of insomnia. Discussed trying trazodone instead. Will send prescripti on. Will send prescripti on for Requip for restless legs. Restless legs 85753472 G 25.81 Patient returns on February 08, [...] also send prescripti on for fluconazol e. [id number] Hanna Fournier PA-C [facility] [address] [facility] [address] [place] [address] 04/18/2024 09:51:34 04/18/2024 11:21:47 Malignant tumor of ascending colon 434710584 C18.2 CT scan of the abdomen and [...] 8.2 hematocrit 29.0. MCV 67.9. Platelet count 523095. Normal cell differenti al. Low serum folate [...] current therapy. Metastatic malignant neoplasm to liver 97939599 C78.7 CT scan of the abdomen and [...] Findings concerning for metastatic colon cancer. Nausea 778548270 R11.0 As needed Zofran and Phenergan prescribed . Pain due t o neoplastic disease 1373472817 9102 G89.3 Right upper quadrant pain secondary to liver metastasis . Patient currently taking Tylenol. Discussed as needed oxycodone to limit Tylenol exposure. Anemia 171465525 D64.9 Right-side d colon mass concerning for malignancy . Will assess for any signs of iron deficiency . Most recent hemoglobin at 8.0. Concern for blood loss from colon mass. Patient reports dark stools. Adopted 392022634 Z62.89 8 Patient is adopted and discussed hereditary gene panel. Patient does have family history of her son having bladder cancer. Will send [facility] hereditary panel. Antineopla stic chemotherapy regimen 899754047 Z51.11 Week 1 5FU Leucovorin Vectibix on [...] without Vectibix on April 18, 2024. Hypokalemia 00637028 E87 .6 Patient returns on April 29, 2023. Potassium is low at 2.9. Will send prescripti on for potassium 20 mEq daily. Will follow-up labs again next week. Deep venou s thrombosis 884789721 I82.409 Patient developed right lower extremity pain and edema.Veno us duplex on May 28, 2023 with evidence of deep vein thrombosis . Started on Eliquis 5 mg 1 tab p.o. b.i.d.. Did not start with Eliquis starter pack due to recent bleeding. Patient had a DVT and a PE in 1990 after her hysterecto my. Mixed anxi ety and depressive disorder 830402615 F41.8 Patient returns on November 23, 2023. [...] prescripti on for Cymbalta. Atopic conjunctivitis 23 4652786 H10.12 Patient with conjunctiv itis of the left eye. Held Vectibix on December 07, 2023. Continue with current therapy. Will follow up again in 2 weeks. Iron defic iency anemia 46677021 D50.9 Will follow up labs Insomnia 415581353 G47.0 0 Patient returns on February 08, 2024. She has had difficulty sleeping for most of her life. She has tried multiple medication s without relief. She is tried Mirtazapin e and lorazepam without improvemen t of insomnia. Discussed trying trazodone instead. Will send prescripti on. Will send prescripti on for Requip for restless legs. Restless legs 41614670 G 25.81 Patient returns on February 08, [...] also send prescripti on for fluconazol e. [id number] Hanna Fournier PA-C [facility] [address] [place] [address] 05/02/2024 09:52:10 05/02/2024 10:44:11 Malignant tumor of ascending colon 462967176 C18.2 CT scan of the abdomen and [...] 8.2 hematocrit 29.0. MCV 67.9. Platelet count 069586. Normal cell differenti al. Low serum folate [...] current therapy. Metastatic malignant neoplasm to liver 85965022 C78.7 CT scan of the abdomen and [...] Findings concerning for metastatic colon cancer. Nausea 178494100 R11.0 As needed Zofran and Phenergan prescribed . Pain due t o neoplastic disease 2304464782 9102 G89.3 Right upper quadrant pain secondary to liver metastasis . Patient currently taking Tylenol. Discussed as needed oxycodone to limit Tylenol exposure. Anemia 956474297 D64.9 Right-side d colon mass concerning for malignancy . Will assess for any signs of iron deficiency . Most recent hemoglobin at 8.0. Concern for blood loss from colon mass. Patient reports dark stools. Adopted 179285908 Z62.89 8 Patient is adopted and discussed hereditary gene panel. Patient does have family history of her son having bladder cancer. Will send [facility] hereditary panel. Antineopla stic chemotherapy regimen 961857933 Z51.11 Week 1 5FU Leucovorin Vectibix on [...] without Vectibix on May 02, 2024. Hypokalemia 31069393 E87 .6 Patient returns on April 29, 2023. Potassium is low at 2.9. Will send prescripti on for potassium 20 mEq daily. Will follow-up labs again next week. Deep venou s thrombosis 571567491 I82.409 Patient developed right lower extremity pain and edema.Veno us duplex on May 28, 2023 with evidence of deep vein thrombosis . Started on Eliquis 5 mg 1 tab p.o. b.i.d.. Did not start with Eliquis starter pack due to recent bleeding. Patient had a DVT and a PE in 1990 after her hysterecto my. Mixed anxi ety and depressive disorder 710198598 F41.8 Patient returns on November 23, 2023. [...] prescripti on for Cymbalta. Atopic conjunctivitis 23 0476901 H10.12 Patient with conjunctiv itis of the left eye. Held Vectibix on December 07, 2023. Continue with current therapy. Will follow up again in 2 weeks. Iron defic iency anemia 38465242 D50.9 Will follow up labs Insomnia 324265403 G47.0 0 Patient returns on February 08, 2024. She has had difficulty sleeping for most of her life. She has tried multiple medication s without relief. She is tried Mirtazapin e and lorazepam without improvemen t of insomnia. Discussed trying trazodone instead. Will send prescripti on. Will send prescripti on for Requip for restless legs. Restless legs 02913714 G 25.81 Patient returns on February 08, [...] and took Diflucan tablet. Rash has resolved. [id number] Tomy King MD [facility] [address] [place] [address] 05/16/2024 10:11:10 05/16/2024 10:33:39 Malignant tumor of ascending colon 511611811 C18.2 CT scan of the abdomen and [...] 8.2 hematocrit 29.0. MCV 67.9. Platelet count 477494. Normal cell differenti al. Low serum folate [...] 16, 2024. Metastatic malignant neoplasm to liver 36221057 C78.7 CT scan of the abdomen and [...] Findings concerning for metastatic colon cancer. Nausea 316477233 R11.0 As needed Zofran and Phenergan prescribed . Pain due t o neoplastic disease 5063132412 9102 G89.3 Right upper quadrant pain secondary to liver metastasis . Patient currently taking Tylenol. Discussed as needed oxycodone to limit Tylenol exposure. Anemia 519145871 D64.9 Right-side d colon mass concerning for malignancy . Will assess for any signs of iron deficiency . Most recent hemoglobin at 8.0. Concern for blood loss from colon mass. Patient reports dark stools. Adopted 663882134 Z62.89 8 Patient is adopted and discussed hereditary gene panel. Patient does have family history of her son having bladder cancer. Will send [facility] hereditary panel. Antineopla stic chemotherapy regimen 573798507 Z51.11 Week 1 5FU Leucovorin Vectibix on [...] on May 16, 2024. Vectibix resumed. Hypokalemia 68381165 E87 .6 Patient returns on April 29, 2023. Potassium is low at 2.9. Will send prescripti on for potassium 20 mEq daily. Will follow-up labs again next week. Deep venou s thrombosis 670557532 I82.409 Patient developed right lower extremity pain [...] duplex. Mixed anxi ety and depressive disorder 454665785 F41.8 Patient returns on November 23, 2023. [...] prescripti on for Cymbalta. Atopic conjunctivitis 23 9927034 H10.12 Patient with conjunctiv itis of the left eye. Held Vectibix on December 07, 2023. Continue with current therapy. Will follow up again in 2 weeks. Iron defic iency anemia 43927087 D50.9 Will follow up labs Insomnia 723612827 G47.0 0 Patient returns on February 08, 2024. She has had difficulty sleeping for most of her life. She has tried multiple medication s without relief. She is tried Mirtazapin e and lorazepam without improvemen t of insomnia. Discussed trying trazodone instead. Will send prescripti on. Will send prescripti on for Requip for restless legs. Restless legs 01560267 G 25.81 Patient returns on February 08, 2024. She has had difficulty sleeping for most of her life. She has tried multiple medication s without relief. She is tried Mirtazapin e and lorazepam without improvemen t of insomnia. Discussed trying trazodone instead. Prescripti on sent for Requip for restless legs. [id number] Hanna Fournier PA-C [facility] [address] [place] [address] 05/30/2024 09:21:34 05/30/2024 11:05:52 Malignant tumor of ascending colon 310930263 C18.2 CT scan of the abdomen and [...] 8.2 hematocrit 29.0. MCV 67.9. Platelet count 233515. Normal cell differenti al. Low serum folate [...] up labs. Metastatic malignant neoplasm to liver 71743714 C78.7 CT scan of the abdomen and [...] Findings concerning for metastatic colon cancer. Nausea 283961463 R11.0 As needed Zofran and Phenergan prescribed . Patient returns on May 30, 2024. Patient has had intermitte nt nausea that occurs randomly. Will try scopolamin e patches. Pain due t o neoplastic disease 4247531257 9102 G89.3 Right upper quadrant pain secondary to liver metastasis . Patient currently taking Tylenol. Discussed as needed oxycodone to limit Tylenol exposure. Anemia 603697422 D64.9 Right-side d colon mass concerning for malignancy . Will assess for any signs of iron deficiency . Most recent hemoglobin at 8.0. Concern for blood loss from colon mass. Patient reports dark stools. Adopted 426637061 Z62.89 8 Patient is adopted and discussed hereditary gene panel. Patient does have family history of her son having bladder cancer. Will send [facility] hereditary panel. Antineopla stic chemotherapy regimen 369251006 Z51.11 Week 1 5FU Leucovorin Vectibix on [...] 2024. Patient will receive Vectibix today. Hypokalemia 66046544 E87 .6 Patient returns on April 29, 2023. Potassium is low at 2.9. Will send prescripti on for potassium 20 mEq daily. Will follow-up labs again next week. Deep venou s thrombosis 793517813 I82.409 Patient developed right lower extremity pain [...] duplex. Mixed anxi ety and depressive disorder 704576274 F41.8 Patient returns on November 23, 2023. [...] prescripti on for Cymbalta. Atopic conjunctivitis 23 8189644 H10.12 Patient with conjunctiv itis of the left eye. Held Vectibix on December 07, 2023. Continue with current therapy. Will follow up again in 2 weeks. Iron defic iency anemia 48481742 D50.9 Will follow up labs Insomnia 895970941 G47.0 0 Patient returns on February 08, 2024. She has had difficulty sleeping for most of her life. She has tried multiple medication s without relief. She is tried Mirtazapin e and lorazepam without improvemen t of insomnia. Discussed trying trazodone instead. Will send prescripti on. Will send prescripti on for Requip for restless legs. Restless legs 29211925 G 25.81 Patient returns on February 08, [...] the area dry. Will follow-up. Generalized rash 5689852 06 R21 Patient returns on May 30, [...] to keep the area dry. Will follow-up. [id number] Hanna Fournier PA-C [facility] [address] [facility] [address] [place] [address] 06/27/2024 09:58:37 06/27/2024 10:53:58 Malignant tumor of ascending colon 882250324 C18.2 CT scan of the abdomen and [...] 8.2 hematocrit 29.0. MCV 67.9. Platelet count 832555. Normal cell differenti al. Low serum folate [...] following with the Coumadin clinic at [facility]. She is scheduled for cardiac MRI. [...] up labs. Metastatic malignant neoplasm to liver 17929542 C78.7 CT scan of the abdomen and [...] Findings concerning for metastatic colon cancer. Nausea 454444469 R11.0 As needed Zofran and Phenergan prescribed . Discussed trying scopolamin e patches but her insurance wouldn't cover. Pain due t o neoplastic disease 1677883451 9102 G89.3 Right upper quadrant pain secondary to liver metastasis . Patient currently taking Tylenol. Discussed as needed oxycodone to limit Tylenol exposure. Anemia 655929263 D64.9 Right-side d colon mass concerning for malignancy . Will assess for any signs of iron deficiency . Most recent hemoglobin at 8.0. Concern for blood loss from colon mass. Patient reports dark stools. Adopted 155705521 Z62.89 8 Patient is adopted and discussed hereditary gene panel. Patient does have family history of her son having bladder cancer. Will send [facility] hereditary panel. Antineopla stic chemotherapy regimen 189855795 Z51.11 Week 1 5FU Leucovorin Vectibix on [...] Patient will receive not Vectibix today. Hypokalemia 73652712 E87 .6 Patient returns on April 29, 2023. Potassium is low at 2.9. Will send prescripti on for potassium 20 mEq daily. Will follow-up labs again next week. Deep venou s thrombosis 242366981 I82.409 Patient developed right lower extremity pain [...] duplex. Mixed anxi ety and depressive disorder 488189657 F41.8 Patient returns on November 23, 2023. [...] prescripti on for Cymbalta. Atopic conjunctivitis 23 8559421 H10.12 Patient with conjunctiv itis of the left eye. Held Vectibix on December 07, 2023. Continue with current therapy. Will follow up again in 2 weeks. Iron defic iency anemia 48834499 D50.9 Will follow up labs Insomnia 572837958 G47.0 0 Patient returns on February 08, 2024. She has had difficulty sleeping for most of her life. She has tried multiple medication s without relief. She is tried Mirtazapin e and lorazepam without improvemen t of insomnia. Discussed trying trazodone instead. Will send prescripti on. Will send prescripti on for Requip for restless legs. Restless legs 46109793 G 25.81 Patient returns on February 08, [...] patient has not received Vectibix. Generalized rash 4266380 06 R21 Patient returns on May 30, [...] following with the Coumadin clinic at [facility]. Congestive heart failure 10305194 I50.9 Patient returns on June 27, 2024. Since previous visit patient has been diagnosed with congestive heart failure and atrial fibrillati on. She has started lasix and is following with a cardiologi st. [id number] Hanna Fournier PA-C [facility] [address] [place] [address] 07/11/2024 09:55:48 07/11/2024 10:53:23 Malignant tumor of ascending colon 925002036 C18.2 CT scan of the abdomen and [...] 8.2 hematocrit 29.0. MCV 67.9. Platelet count 268882. Normal cell differenti al. Low serum folate [...] up labs. Metastatic malignant neoplasm to liver 61410319 C78.7 CT scan of the abdomen and [...] Findings concerning for metastatic colon cancer. Nausea 172366487 R11.0 As needed Zofran and Phenergan prescribed . Discussed trying scopolamin e patches but her insurance wouldn't cover. She is taking Zofran with relief. Pain due t o neoplastic disease 1164860068 9102 G89.3 She is taking hydrocodon e 7.5 mg b.i.d. Discussed taking medication every 4-6 hours as needed. Anemia 069115772 D64.9 Right-side d colon mass concerning for malignancy . Will assess for any signs of iron deficiency . Most recent hemoglobin at 8.0. Concern for blood loss from colon mass. Patient reports dark stools. Adopted 562796395 Z62.89 8 Patient is adopted and discussed hereditary gene panel. Patient does have family history of her son having bladder cancer. Will send [facility] hereditary panel. Antineopla stic chemotherapy regimen 586110463 Z51.11 Week 1 5FU Leucovorin Vectibix on [...] 2024. Patient will receive Vectibix today. Hypokalemia 14734857 E87 .6 Patient returns on April 29, 2023. Potassium is low at 2.9. Will send prescripti on for potassium 20 mEq daily. Will follow-up labs again next week. Deep venou s thrombosis 759939331 I82.409 Patient developed right lower extremity pain [...] duplex. Mixed anxi ety and depressive disorder 944364983 F41.8 Patient returns on November 23, 2023. [...] prescripti on for Cymbalta. Atopic conjunctivitis 23 6294521 H10.12 Patient with conjunctiv itis of the left eye. Held Vectibix on December 07, 2023. Continue with current therapy. Will follow up again in 2 weeks. Iron defic iency anemia 41432941 D50.9 Will follow up labs Insomnia 739893315 G47.0 0 Patient returns on February 08, 2024. She has had difficulty sleeping for most of her life. She has tried multiple medication s without relief. She is tried Mirtazapin e and lorazepam without improvemen t of insomnia. Discussed trying trazodone instead. Will send prescripti on. Will send prescripti on for Requip for restless legs. Restless legs 05655390 G 25.81 Patient returns on February 08, [...] patient has not received Vectibix. Generalized rash 4391866 06 R21 Patient returns on May 30, [...] following with the Coumadin clinic at [facility]. Congestive heart failure 89847069 I50.9 Patient returns on June 27, 2024. Since previous visit patient has been diagnosed with congestive heart failure and atrial fibrillati on. She has started lasix and is following with a cardiolog[place] [id number] Jana España MD [facility] [address] [place] [address] 07/06/2024 10:53:43 07/08/2024 03:53:47 Seen by palliative care service 538917918 Z51.5 Introduced services today. Dtr and son would be NOK - she feels important to start thinking about completion of LW/AD- I provided copies today and will loop [facility] and will plan to f/u on this is two weeks. Encouraged her to think about HCS/code status. Still wants to continue chemo and has scans next week - did not discuss hospice, but eligible at any point Pain due t o neoplastic disease 4491126771 9102 G89.3 Uncontroll ed, had lortab prescribed which manages pain well when she takes medication . Encouraged adherence. Mixed anxi ety and depressive disorder 147911855 F41.8 Uncontroll ed. Not taking cymbalta. Encouraged adherence and PRN ativan for breakthrou gh syptoms. Did not wish to pursue CBt at this time, will d/w Elsa for additional support options moving forward Nausea and vomiting 1693 2000 R11.2 Related to malignancy vs. Chemo. Improved with PRN and qAM zofran, likely related to chemo vs. malignancy Loss of appetite 2958885 6 R63.0 Related to malignancy . Not taking mirtazapin e. Does not want to add additional Rx at this itme or see nutritioni st. [id number] Hanna Fournier PA-C [facility] [address] [facility] [address] [place] [address] 07/25/2024 10:19:02 07/25/2024 10:39:35 Malignant tumor of ascending colon 539985699 C18.2 CT scan of the abdomen and [...] 8.2 hematocrit 29.0. MCV 67.9. Platelet count 290168. Normal cell differenti al. Low serum folate [...] Vectibix today. Metastatic malignant neoplasm to liver 77787067 C78.7 CT scan of the abdomen and [...] Findings concerning for metastatic colon cancer. Nausea 877756050 R11.0 As needed Zofran and Phenergan prescribed . Discussed trying scopolamin e patches but her insurance wouldn't cover. She is taking Zofran with relief. Pain due t o neoplastic disease [id number] 9102 G89.3 She is taking hydrocodon e 7.5 mg b.i.d. Discussed taking medication every 4-6 hours as needed. Anemia 381368502 D64.9 Right-side d colon mass concerning for malignancy . Will assess for any signs of iron deficiency . Hemoglobin previously 8.0. Concern for blood loss from colon mass. Patient reports dark stools. labs on July 25, 2024 with improvemen t of hemoglobin 12.6. Patient is currently receiving infusional iron. Adopted [id number] Z62.89 8 Patient is adopted and discussed hereditary gene panel. Patient does have family history of her son having bladder cancer. Will send [facility] hereditary panel. Antineopla stic chemotherapy regimen 377611469 Z51.11 Week 1 5FU Leucovorin Vectibix on [...] Patient will not receive Vectibix today. Hypokalemia 59302719 E87 .6 Patient returns on April 29, 2023. Potassium is low at 2.9. Will send prescripti on for potassium 20 mEq daily. Will follow-up labs again next week. Deep venou s thrombosis 425204948 I82.409 Patient developed right lower extremity pain [...] duplex. Mixed anxi ety and depressive disorder 200161987 F41.8 Patient returns on November 23, 2023. [...] reports depression has improved. Atopic conjunctivitis 23 8491101 H10.12 Patient with conjunctiv itis of the left eye. Held Vectibix on December 07, 2023. Continue with current therapy. Will follow up again in 2 weeks. Patient returns on July 25, 2024. She does have conjunctiv itis of the left eye. Will hold Vectibix today. Will follow up. Iron defic iency anemia 09542819 D50.9 Currently receiving infusional iron. Will continue to monitor. Insomnia 466714018 G47.0 0 Patient returns on February 08, 2024. She has had difficulty sleeping for most of her life. She has tried multiple medication s without relief. She is tried Mirtazapin e and lorazepam without improvemen t of insomnia. Discussed trying trazodone instead. Will send prescripti on. Will send prescripti on for Requip for restless legs. Restless legs 96157566 G 25.81 Patient returns on February 08, [...] with diflucan and nystain powder. Generalized rash 4634262 06 R21 Patient returns on May 30, [...] following with the Coumadin clinic at [facility]. Congestive heart failure 17640869 I50.9 Patient returns on June 27, 2024. Since previous visit patient has been diagnosed with congestive heart failure and atrial fibrillati on. She has started lasix and is following with a cardiologi . Cachexia 908340114 R64 Patient returns on July 25, 2024. Patient has had decreased appetite. Continues to lose weight. She has lost 4 more lbs since previous visit. She is drinking nutritiona l supplement s. Discussed appetite stimulant. Patient previously refused. Now she is agreeable to try Megace. Will send prescripti on. Will follow up for angela oakley [id number] Tomy King MD [facility] [address] [place] [address] 08/01/2024 11:10:37 08/01/2024 12:30:43 Malignant tumor of ascending colon 839103832 C18.2 CT scan of the abdomen and [...] 8.2 hematocrit 29.0. MCV 67.9. Platelet count 635856. Normal cell differenti al. Low serum folate [...] study published in September 2022 in the [place] [facility] of combined Avastin therapy with [...] Will follow-up Metastatic malignant neoplasm to liver 32085665 C78.7 CT scan of the abdomen and [...] Findings concerning for metastatic colon cancer. Nausea 194765777 R11.0 As needed Zofran and Phenergan prescribed . Discussed trying scopolamin e patches but her insurance wouldn't cover. She is taking Zofran with relief. Pain due t o neoplastic disease 9195588910 9102 G89.3 She is taking hydrocodon e 7.5 mg b.i.d. Discussed taking medication every 4-6 hours as needed. Anemia 374293417 D64.9 Right-side d colon mass concerning for malignancy . Will assess for any signs of iron deficiency . Hemoglobin previously 8.0. Concern for blood loss from colon mass. Patient reports dark stools. labs on July 25, 2024 with improvemen t of hemoglobin 12.6. Patient is currently receiving infusional iron. Adopted 679183710 Z62.89 8 Patient is adopted and discussed hereditary gene panel. Patient does have family history of her son having bladder cancer. Will send [facility] hereditary panel. Antineopla stic chemotherapy regimen 886999021 Z51.11 Week 1 5FU Leucovorin Vectibix on [...] 2024 due to disease progressio n. Hypokalemia 25489971 E87 .6 Patient returns on April 29, 2023. Potassium is low at 2.9. Will send prescripti on for potassium 20 mEq daily. Will follow-up labs again next week. Deep venou s thrombosis 086576876 I82.409 Patient developed right lower extremity pain [...] duplex. Mixed anxi ety and depressive disorder 877168911 F41.8 Patient returns on November 23, 2023. [...] reports depression has improved. Atopic conjunctivitis 23 7475280 H10.12 Patient with conjunctiv itis of the left eye. Held Vectibix on December 07, 2023. Continue with current therapy. Will follow up again in 2 weeks. Patient returns on July 25, 2024. She does have conjunctiv itis of the left eye. Will hold Vectibix today. Will follow up. Iron defic iency anemia 12254862 D50.9 Currently receiving infusional iron. Will continue to monitor. Insomnia 784108314 G47.0 0 Patient returns on February 08, 2024. She has had difficulty sleeping for most of her life. She has tried multiple medication s without relief. She is tried Mirtazapin e and lorazepam without improvemen t of insomnia. Discussed trying trazodone instead. Will send prescripti on. Will send prescripti on for Requip for restless legs. Restless legs 01822969 G 25.81 Patient returns on February 08, [...] with diflucan and nystain powder. Generalized rash 5189173 06 R21 Patient returns on May 30, [...] following with the Coumadin clinic at [facility]. Congestive heart failure 42208696 I50.9 Patient returns on June 27, 2024. Since previous visit patient has been diagnosed with congestive heart failure and atrial fibrillati on. She has started lasix and is following with a cardiologi . Cachexia 536328664 R64 Patient returns on July 25, 2024. Patient has had decreased appetite. Continues to lose weight. She has lost 4 more lbs since previous visit. She is drinking nutritiona l supplement s. Discussed appetite stimulant. Patient previously refused. Now she is agreeable to try Megace. Will send prescripti on. Will follow up for angela oakley [id number] Hanna Fournier PA-C [facility] [address] [place] [address] 08/10/2024 09:37:37 08/10/2024 10:29:37 Malignant tumor of ascending colon 991571710 C18.2 CT scan of the abdomen and [...] 8.2 hematocrit 29.0. MCV 67.9. Platelet count 346305. Normal cell differenti al. Low serum folate [...] study published in September 2022 in the [place] [facility] of combined Avastin therapy with [...] liver lesions. Metastatic malignant neoplasm to liver 48128212 C78.7 CT scan of the abdomen and [...] patient is a candidate for radiation Nausea 094654435 R11.0 As needed Zofran and Phenergan prescribed . Discussed trying scopolamin e patches but her insurance wouldn't cover. She is taking Zofran with relief. Pain due t o neoplastic disease [id number] 9102 G89.3 She is taking hydrocodon e 7.5 mg b.i.d. Discussed taking medication every 4-6 hours as needed. Anemia 326367885 D64.9 Right-side d colon mass concerning for malignancy . Will assess for any signs of iron deficiency . Hemoglobin previously 8.0. Concern for blood loss from colon mass. Patient reports dark stools. Labs on August 10, 2024 with hemoglobin slightly low at 11.9. She is receiving infusional iron as needed. Adopted 338253614 Z62.89 8 Patient is adopted and discussed hereditary gene panel. Patient does have family history of her son having bladder cancer. [facility] hereditary panel sent Antineopla stic chemotherapy regimen 732585303 Z51.11 Week 1 5FU Leucovorin Vectibix on [...] monitor for tolerabili ty and toxicity. Hypokalemia 45658304 E87 .6 Currently taking for potassium 20 mEq daily. Will follow up labs. Mixed anxi ety and depressive disorder 999274641 F41.8 Patient returns on November 23, 2023. [...] reports depression has improved. Atopic conjunctivitis 23 5984203 H10.12 Conjunctiv itis due to Vectibix. This is improving. Iron defic iency anemia 29272735 D50.9 Currently receiving infusional iron as needed. Will continue to monitor. Insomnia 609935233 G47.0 0 Patient has had difficulty sleeping for most of her life. She has tried multiple medication s without relief. She is tried Mirtazapin e and lorazepam without improvemen t of insomnia. Discussed trying trazodone instead. Restless legs 09296365 G 25.81 Patient taking Requip for restless legs. Generalized rash 5741163 06 R21 Patient with rash due to Vectibix. This is improving. Atrial fibrillation 4943 6004 I48.91 Patient has been diagnosed with congestive heart failure and atrial fibrillati on. She has been started on Coumadin. She is following with the Coumadin clinic at [facility]. Congestive heart failure 05771468 I50.9 Patient has been diagnosed with congestive heart failure. She has started lasix and is following with a cardiologi st. Cachexia 340054114 R64 Patient has had decreased appetite and weight loss. She is drinking nutritiona l supplement s. Discussed appetite stimulant. Patient previously refused. She has started on Megace. Will continue to monitor History of deep vein thrombosis 859168242 Z86.718 Patient developed right lower extremity pain [...] repeat venous duplex. Drug therapy finding 309 041409 Z79.01 She continues on Coumadin due to a fib. She is following with the Coumadin clinic at [facility]. [id number] Hanna Fournier PA-C [facility] [address] [address] [place] [address] 08/25/2024 09:02:23 08/25/2024 09:51:52 Antineoplastic chemotherapy regimen 844287809 Z51.11 Week 1 5FU Leucovorin Vectibix on [...] and toxicity. Malignant tumor of ascending colon 559972124 C18.2 CT scan of the abdomen and [...] 8.2 hematocrit 29.0. MCV 67.9. Platelet count 846727. Normal cell differenti al. Low serum folate [...] study published in September 2022 in the [place] [facility] of combined Avastin therapy with [...] liver lesions. Metastatic malignant neoplasm to liver 59805153 C78.7 CT scan of the abdomen and [...] patient is a candidate for radiation Nausea 061244297 R11.0 As needed Zofran and Phenergan prescribed . Discussed trying scopolamin e patches but her insurance wouldn't cover. She is taking Zofran with relief. Pain due t o neoplastic disease 0923752133 9102 G89.3 She is taking hydrocodon e [...] does take her current medication s Anemia 027162953 D64.9 Right-side d colon mass concerning for malignancy . Will assess for any signs of iron deficiency . Hemoglobin previously 8.0. Concern for blood loss from colon mass. Patient reports dark stools. Labs on August 10, 2024 with hemoglobin slightly low at 11.9. She is receiving infusional iron as needed. Adopted 612130190 Z62.89 8 Patient is adopted and discussed hereditary gene panel. Patient does have family history of her son having bladder cancer. [facility] hereditary panel sent Hypokalemia 54350810 E87 .6 Currently taking for potassium 20 mEq daily. Will follow up labs. Mixed anxi ety and depressive disorder 089458233 F41.8 Patient returns on November 23, 2023. [...] reports depression has improved. Atopic conjunctivitis 23 4254571 H10.12 Conjunctiv itis due to Vectibix. This is improving. Iron defic iency anemia 92162694 D50.9 Receiving infusional iron as needed. Will continue to monitor. Insomnia 895605642 G47.0 0 Patient has had difficulty sleeping for most of her life. She has tried multiple medication s without relief. She is tried Mirtazapin e and lorazepam without improvemen t of insomnia. Discussed trying trazodone instead. Restless legs 04074110 G 25.81 Patient taking Requip for restless legs. Generalized rash 9890167 06 R21 Rash due to Vectibix. This has improved. Atrial fibrillation 4943 6004 I48.91 Patient has been diagnosed with congestive heart failure and atrial fibrillati on. She has been started on Coumadin. She is following with the Coumadin clinic at [facility]. Congestive heart failure 96329301 I50.9 Patient has been diagnosed with congestive heart failure. She has started lasix and is following with a cardiologi Cachexia 261378779 R64 Patient has had decreased appetite and weight loss. She is drinking nutritiona l supplement s. Discussed appetite stimulant. Patient previously refused. She has started on Megace. She does not like the taste of Megace. Discussed Megace tablets instead of liquid but patient declines at this time. Will continue to monitor History of deep vein thrombosis 867672208 Z86.718 Patient developed right lower extremity pain [...] repeat venous duplex. Drug therapy finding 309 416670 Z79.01 She continues on Coumadin due to a fib. She is following with the Coumadin clinic at [facility]. Acute post traumatic headache 7891046660 43141 G44.319 Patient returns on August 25, 2024. [...] Internatio nal normalized ratio above reference range 614547824 R79.1 Patient returns on August 25, 2024. She is on Coumadin for atrial fibrillati on and her INR is elevated. She is going to the Coumadin Clinic for management . INR 8 today. She is going to hold Coumadin and contact Coumadin Clinic for directions today. Denies any bleeding at this time. [id number] Hanna Fournier PA-C [facility] [address] [place] [address] 09/02/2024 11:29:36 09/02/2024 12:07:33 Antineoplastic chemotherapy regimen 488339292 Z51.11 Week 1 5FU Leucovorin Vectibix on [...] follow up. Malignant tumor of ascending colon 989162876 C18.2 CT scan of the abdomen and [...] 8.2 hematocrit 29.0. MCV 67.9. Platelet count 778095. Normal cell differenti al. Low serum folate [...] study published in September 2022 in the [place] [facility] of combined Avastin therapy with [...] liver lesions. Metastatic malignant neoplasm to liver 00008132 C78.7 CT scan of the abdomen and [...] patient is a candidate for radiation Nausea 293623881 R11.0 As needed Zofran and Phenergan prescribed [...] ons. Pain due t o neoplastic disease 2114348950 9102 G89.3 She is taking hydrocodon e [...] tab po every 3-4 hours instead. Anemia 677464119 D64.9 Right-side d colon mass concerning for malignancy . Will assess for any signs of iron deficiency . Hemoglobin previously 8.0. Concern for blood loss from colon mass. Patient reports dark stools. Labs on August 10, 2024 with hemoglobin slightly low at 11.9. She is receiving infusional iron as needed. Adopted 088302347 Z62.89 8 Patient is adopted and discussed hereditary gene panel. Patient does have family history of her son having bladder cancer. [facility] hereditary panel sent Hypokalemia 25993408 E87 .6 Currently taking for potassium 20 mEq daily. Will follow up labs. Mixed anxi ety and depressive disorder 875070779 F41.8 Patient returns on November 23, 2023. [...] reports depression has improved. Atopic conjunctivitis 23 9014726 H10.12 Conjunctiv itis due to Vectibix. This is improving. Iron defic iency anemia 44297407 D50.9 Receiving infusional iron as needed. Will continue to monitor. Insomnia 772375655 G47.0 0 Patient has had difficulty sleeping for most of her life. She has tried multiple medication s without relief. She is tried Mirtazapin e and lorazepam without improvemen t of insomnia. Discussed trying trazodone instead. Restless legs 62969172 G 25.81 Patient taking Requip for restless legs. Generalized rash 4772428 06 R21 Rash due to Vectibix. This has improved. Atrial fibrillation 1003 6004 I48.91 Patient has been diagnosed with congestive heart failure and atrial fibrillati on. She has been started on Coumadin. She is following with the Coumadin clinic at [facility]. Congestive heart failure 10899387 I50.9 Patient has been diagnosed with congestive heart failure. She has started lasix and is following with a cardiologi st. Cachexia 436129580 R64 Patient has had decreased appetite and weight loss. She is drinking nutritiona l supplement s. Discussed appetite stimulant. Patient previously refused. She has started on Megace. She does not like the taste of Megace. Discussed Megace tablets instead of liquid but patient declines at this time. Will continue to monitor History of deep vein thrombosis 158946903 Z86.718 Patient developed right lower extremity pain [...] repeat venous duplex. Drug therapy finding 309 770046 Z79.01 She continues on Coumadin due to a fib. She is following with the Coumadin clinic at [facility]. Internatio nal normalized ratio above reference range 427509222 R79.1 Patient returns on August 25, 2024. She is on Coumadin for atrial fibrillati on and her INR is elevated. She is going to the Coumadin Clinic for management . INR 8 today. She is going to hold Coumadin and contact Coumadin Clinic for directions today. Denies any bleeding at this time. Diarrhea 94998594 R19.7 Patient with increased diarrhea, nausea, and vomiting for the past 4 days. She is taking Imodium and Lomotil without relief. She has a history of C diff. Will order stool studies today. Will check stool for C diff today. Dehydration 33536822 E86 .0 Patient returns on September 02, 2024. Patient with increased diarrhea, nausea, and vomiting for the past 4 days. No fever or chills. IV fluids along with Pepcid and Zofran today for dehydratio n. [id number] Hanna Fournier PA-C [facility] [address] [place] [address] 11/01/2024 13:00:10 11/01/2024 13:35:08 Antineoplastic chemotherapy regimen 637347191 Z51.11 Week 1 5FU Leucovorin Vectibix on [...] 25, 2024. Malignant tumor of ascending colon 356635991 C18.2 CT scan of the abdomen and [...] 8.2 hematocrit 29.0. MCV 67.9. Platelet count 925877. Normal cell differenti al. Low serum folate [...] study published in September 2022 in the [place] [facility] of combined Avastin therapy with [...] malignancy . Metastatic malignant neoplasm to liver 22340945 C78.7 CT scan of the abdomen and [...] any treatment for her malignancy . Nausea 179168605 R11.0 As needed Zofran and Phenergan prescribed [...] ons. Pain due t o neoplastic disease 1090591756 9102 G89.3 Abdominal pain has improved and pain is controlled with current pain medication s. Anemia 386239078 D64.9 Right-side d colon mass concerning for malignancy . Will assess for any signs of iron deficiency . Hemoglobin previously 8.0. Concern for blood loss from colon mass. Patient reports dark stools. Labs on August 10, 2024 with hemoglobin slightly low at 11.9. She is receiving infusional iron as needed. Adopted 792401949 Z62.89 8 Patient is adopted and discussed hereditary gene panel. Patient does have family history of her son having bladder cancer. [facility] hereditary panel sent Hypokalemia 43472182 E87 .6 Currently taking for potassium 20 mEq daily. Will follow up labs. Mixed anxi ety and depressive disorder 136296193 F41.8 Patient returns on November 23, 2023. [...] reports depression has improved. Atopic conjunctivitis 23 1338015 H10.12 Conjunctiv itis due to Vectibix. This has improved. Iron defic iency anemia 40945812 D50.9 Receiving infusional iron as needed. Will continue to monitor. Insomnia 301868396 G47.0 0 Patient has had difficulty sleeping for most of her life. She has tried multiple medication s without relief. She is tried Mirtazapin e and lorazepam without improvemen t of insomnia. Discussed trying trazodone instead. Restless legs 16722123 G 25.81 Patient taking Requip for restless legs. Generalized rash 1464085 06 R21 Rash due to Vectibix. This has improved. Atrial fibrillation 4943 6004 I48.91 Patient has been diagnosed with congestive heart failure and atrial fibrillati on. She has been started on Coumadin. She is following with the Coumadin clinic at [facility]. Congestive heart failure 94851498 I50.9 Patient has been diagnosed with congestive heart failure. She has started lasix and is following with a cardiologi . Cachexia 298693942 R64 Patient has had decreased appetite and weight loss. She is drinking nutritiona l supplement s. Discussed appetite stimulant. Patient previously refused. She has started on Megace. She does not like the taste of Megace. Discussed Megace tablets instead of liquid but patient declines at this time. Will continue to monitor History of deep vein thrombosis 453596193 Z86.718 Patient developed right lower extremity pain [...] repeat venous duplex. Drug therapy finding 309 368805 Z79.01 She continues on Coumadin due to a fib. She is following with the Coumadin clinic at [facility]. Candidiasis of skin 7888 3006 B37.2 Patient has intermitte nt rash [...] Guarantor Name 06/02/2023 [place]ICARE[place] Vicky Roblero [id number] Vicky Roblero 06/02/2023 1 [employer] (MEDICARE SUPPLEMENT) Vicky Roblero [id number] Vicky Roblero 10/01/2024 2 [employer] Vicky Roblero [id number] Vicky Roblero 06/02/2023 1 MEDICARE B-[place]: [place] Vicky Roblero [id number] Vicky Roblero 06/02/2023 2 [employer] (MEDICARE SUPPLEMENT) Vicky Roblero [id number] Vicky Roblero 10/30/2024 1 [place] Vicky Roblero [id number] Vicky Roblero Notes Date Note Type Note Provider Name and Address Organization Details Recorded Time 08/01/2024 text/html 78 yo F returns for evaluation of metastatic colon cancer. Patient recently seen on February 17, 2023 in the emergency room at [facility] with abdominal pain. Patient reported epigastric [...] 8.2 hematocrit 29.0. MCV 67.9. Platelet count 266138. Normal cell differential. Low serum folate of [...] with metastatic colorectal cancer. Discussed chemotherapy with [place] based regimen with 5FU Leucovorin if [...] following with the Coumadin clinic at [facility]. She is scheduled for cardiac MRI. [...] study published in September 2022 in the [place] [facility] of combined Avastin therapy with [place]. Phase 3 trial with median overall survival of 10.8 months in combination therapy verses 7.5 months [place] alone. Progression-free survival 5.6 months versus 2.4 months in [place] alone therapy. Tomy King MD [address], [place], [address], [place] - [facility] - [place] & [place] 08/01/2024 13:08:52 08/10/2024 text/html 78 yo F returns for evaluation of metastatic colon cancer. Patient recently seen on February 17, 2023 in the emergency room at [facility] with abdominal pain. Patient reported epigastric [...] 8.2 hematocrit 29.0. MCV 67.9. Platelet count 081164. Normal cell differential. Low serum folate of [...] with metastatic colorectal cancer. Discussed chemotherapy with [place] based regimen with 5FU Leucovorin if [...] following with the Coumadin clinic at [facility]. She is scheduled for cardiac MRI. [...] study published in September 2022 in the [place] [facility] of combined Avastin therapy with [...] for tolerability and toxicity. Hanna Fournier PA-C [address] [facility], [place], [address], [place] [facility] - [place] 08/10/2024 11:13:32 08/25/2024 text/html 78 yo F returns for evaluation of metastatic colon cancer. Patient recently seen on February 17, 2023 in the emergency room at [facility] with abdominal pain. Patient reported epigastric [...] 8.2 hematocrit 29.0. MCV 67.9. Platelet count 621176. Normal cell differential. Low serum folate of [...] with metastatic colorectal cancer. Discussed chemotherapy with [place] based regimen with 5FU Leucovorin if [...] following with the Coumadin clinic at [facility]. She is scheduled for cardiac MRI. [...] study published in September 2022 in the [employer] [facility] of combined Avastin therapy with [...] tolerability and toxicity. Hanna Fournier PA-C [address] [facility], [place], [address], [place] - [place] - [place] & [place] 08/25/2024 10:43:13 09/02/2024 text/html 78 yo F returns for evaluation of metastatic colon cancer. Patient recently seen on February 17, 2023 in the emergency room at [facility] with abdominal pain. Patient reported epigastric [...] 8.2 hematocrit 29.0. MCV 67.9. Platelet count 307169. Normal cell differential. Low serum folate of [...] with metastatic colorectal cancer. Discussed chemotherapy with [place] based regimen with 5FU Leucovorin if [...] following with the Coumadin clinic at [facility]. She is scheduled for cardiac MRI. [...] study published in September 2022 in the [employer] of combined Avastin therapy with [...] cycle. Will follow up. Hanna Fournier PA-C [address] , [place], [address], [place] 09/02/2024 12:55:35 11/01/2024 text/html 79 yo F returns for evaluation of metastatic colon cancer. Patient recently seen on February 17, 2023 in the emergency room at [facility] with abdominal pain. Patient reported epigastric [...] 8.2 hematocrit 29.0. MCV 67.9. Platelet count 373164. Normal cell differential. Low serum folate of [...] with metastatic colorectal cancer. Discussed chemotherapy with [place] based regimen with 5FU Leucovorin if [...] following with the Coumadin clinic at [facility]. She is scheduled for cardiac MRI. [...] study published in September 2022 in the [employer] of combined Avastin therapy with [...] to have if needed. Hanna Fournier PA-C [address], [place], [address], [facility] - [place] - [place] 11/01/2024 13:57:44 OBGyn Episode No OBEpisode recorded.
--- OUTSIDE RECORDS SUMMARY | 2024-11-24 11:17 | XMS_ITS | Encounter Summary ---
Author Organization [place] [address] Care Team Providers Care Component Prep Operator Name Role Phone Luis Villasenor MD Unavailable [phone] Luis Villasenor MD Primary Care Provider Encounter Details Date Type Department Care Team (Late st Contact Info) Description 09/26/2010 Orders Only SEP [facility] [address] [place] [address] Jennifer Nagel MD [address] [place] [address] Social History Tobacco Use Types Packs/Day Years [...] a practice prior to that practice using [facility] for Medical Records. Performing Provider: JENNIFER NAGEL Jennifer Nagel MD IMG ECHO ORDERABLES Final Result documented in this encounter Visit Diagnoses Not on filedocumented in this encounter Care Teams Component Prep Operator Relationship Specialty Start Date End Date Luis Villasenor MD [address] [place] [address] PCP - OBGYN 01/09/10 Luis Villasenor MD [address] [place] [address] PCP - General 01/09/10 documented as of this encounter
[2024-11-24 12:07] LABS: PHA INR Fingerstick 1.7 (0.9-1.1)
== END 2024-11-24 12:08 ==
LOC: ACC 11:13
PROVIDERS: PCP Nurse Practitioner Family; Visit Provider Physician Assistant
DX: Z79.01 Long term (current) use of anticoagulants (principal)
CPT/HCPCS: 85610; 99211; G0463

== ENCOUNTER 2024-11-30 09:36 | Outpatient (CLI) | payer MEDICARE, SELFPAY ==
--- OUTSIDE RECORDS SUMMARY | 2024-09-26 13:00 | XMS_ITS | Encounter Summary ---
Author Organization [place] [address] Care Team Providers Care Smoke Eater Name Role Phone Luis Villasenor MD Unavailable [phone] Luis Villasenor MD Primary Care Provider Reason for Visit * Reason Comments Hospital Follow Up Encounter Details Date Type Department Care Team (Latest Contact Info) Description 09/26/2024 1:00 PM EDT Office Visit [facility] [address] 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 Youngblood, cardiology. 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 Youngblood, cardiology. Taking 5mg M/W/F and 2.5mg other days Acute on chronic heart failure with preserved ejection fraction (HCC) -continue cardiology care with Dr. Youngblood, [facility] Orders: fUROsemide (LASIX) 40 mg Oral [...] hospital follow up. She was admitted to [facility] on 09/19/2024 and discharged 09/20/2024 with [...] Coumadin is managed at coumadin clinic at [facility]. Hospital discharge summary, most recent labs [...] liver (HCC) Secondary malignant neoplasm of liver adjunct faculty for medical terminology (current) use of anticoagulants Long-term (current) use [...] documented as of this encounter Care Teams Smoke Eater Relationship Specialty Start Date End Date Luis Villasenor MD [address] [place] [phone] PCP - OBGYN 01/09/10 Luis Villasenor MD [address] [place] [phone] PCP - General 01/09/10 documented as of this encounter
--- OUTSIDE RECORDS SUMMARY | 2024-10-26 11:00 | XMS_ITS | Encounter Summary ---
Author Organization [place] [address] Care Team Providers Care Senior Front End Web Developer Name Role Phone Luis Villasenor MD Unavailable [phone] Luis Villasenor MD Primary Care Provider Reason for Visit * Reason Comments Labs Only Encounter Details Date Type Department Care Team (Late Contact Info) Description 10/26/2024 11:00 AM EDT Clinical Support TODD [place] [address] [place] [address] Freya Coon [facility] [place] [address] Flank pain Social History Tobacco Use Types [...] (NO STAIN) (10/26/2024 11:17 AM EDT) Pathologist [facility] Culture Multiple bacterial species isolated from urine consistent with urogenital commensal organisms. 10/27/2024 10:23 PM EDT [employer] Urine STRUCTURE OF URINARY TRACT PROPER / Unknown 10/26/2024 11:17 AM EDT 10/26/2024 11:17 AM EDT us Amarilis Nolan APRN MICROBIOLOGY - GENERAL OR DERABLES Final Result [employer] [address] [facility] , [place] [address] * (ABNORMAL) SEP URINALYSIS POC [...] ORDERABLES Fi nal Result TODD [place] [address] [place] [address] * (ABNORMAL) COMPREHENSIVE METABOLIC PANEL (10/26/2024 11:03 [...] 10/26/2024 4:28 PM EDT [facility] Albumin 3.5 3.2 - 4.6 gm/dL 10/26/2024 4:28 PM EDT [facility] Total Protein 7.4 6.4 - 8.3 gm/dL 10/26/2024 4:28 PM EDT [facility] Bili Total 0.7 0.2 - 1.3 mg/dL 10/26/2024 4:28 PM EDT [facility] ALT 11 <=41 U/L 10/26/2024 4:28 PM EDT [facility] AST 28 <=40 U/L 10/26/2024 4:28 PM EDT [facility] Alk Phos 259(H) 36 - 123 U/L 10/26/2024 4:28 PM EDT [facility] eGFR (CKD-EPIcr 2020) 43(L) >=60 mL/min/1.7 3 m2 10/26/2024 4:28 PM EDT [facility] Comment:Estimated GFR was ca lculated using the CKD-EPIcr (2020) equation refit without race. The equation is recommended by the National Kidney Foundation - [place] Society of Nephrology Task Force. Blood VENOUS BLOOD / Unknown Venipuncture / Unknown 10/26/2024 11:03 AM EDT 10/26/2024 11:03 AM EDT us Amarilis Nolan ETCHED CIRCUIT PROCESSOR CHEMISTRY ORDERABLES Kell l Result [facility] [address] [facility] , [place] [address] documented in this encounter Visit Diagnoses Diagnosis Flank pain Abdominal pain, unspecified site documented in this encounter Additional Health Concerns Assessment Noted Time A fall risk assessment has been complete d for the patient 06/14/2024 9:03 AM EST documented as of this encounter Care Teams Senior Front End Web Developer Relationship Specialty Start Date End Date Luis Villasenor MD [address] [place] [address] PCP - OBGYN 01/09/10 Luis Villasenor MD [address] [place], [place] [address] PCP - General 01/09/10 documented as of this encounter
--- OUTSIDE RECORDS SUMMARY | 2024-11-04 11:15 | XMS_ITS | Encounter Summary ---
Author Organization [place] [address] Care Team Providers Care Policy Services Representative Name Role Phone Luis Villasenor MD Unavailable [phone] Luis Villasenor MD Primary Care Provider Reason for Visit * Reason Comments Hospital Follow Up Diverticulitis Encounter Details Date Type Department Care Team (Latest Contact Info) Description 11/04/2024 11:15 AM EDT Office Visit SEP Sarah [address] [place] [phone] Amarilis Nolan, PROGRAMMER NUMERICAL CONTROL [address] [place] [address] Diverticulitis of large intestine without perforation or [...] this encounter Progress Notes * Amarilis Nolan, PROGRAMMER NUMERICAL CONTROL - 11/04/2024 11:15 AM EDT Assessment & [...] without bleeding Comments: inpatient hospital stay at [facility] November 03, symptoms resolved Peripheral edema - [...] consistent with colon primary. Continues with chemotherapy [id number]. Managed by [facility] Oncology and Hematology 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) (Chronic) Overview: CT scan 01/2023 with multiple masses of liver and ascending colon thickening. 04/2023, R hemicolectomy and anastomosis, pathology of invasive moderately differentiated adenocarcinoma. Metastatic adenocarcinoma in 2/10 lymph nodes. Wedge resection of the liver with metastatic adenocarcinoma consistent with colon primary. Continues with chemotherapy [id number]. Managed by [facility] Oncology and Hematology Return in about 6 weeks (around 12/16/2024) for 6 week follow up, video visit ok. Subjective CHEMA Roblero is a 79 y.o. female Chief Complaint Patient presents with Hospital Follow Up Diverticulitis History of Present Illness The patient is a 79-year-old female here for a hospital follow-up. She was admitted to [facility] for diverticulitis. Denies ongoing symptoms since hospital [...] The provider educated the patient (or legal mortician supplies sales representative) on the use of the ambient listening artificial intelligence tool, [employer]. They were informed that this AI tool [...] of such information, the patient (or legal mortician supplies sales representative), and each individual in attendance [...] documented as of this encounter Care Teams Policy Services Representative Relationship Specialty Start Date End Date Luis Villasenor MD [address] [place] [id number] PCP - OBGYN 01/09/10 Luis Villasenor MD [address] [place] [phone] PCP - General 01/09/10 documented as of this encounter
--- OUTSIDE RECORDS SUMMARY | 2024-11-14 09:00 | XMS_ITS | Encounter Summary ---
Author Organization [place] [address] Care Team Providers Care Offal Separator Name Role Phone Luis Villasenor MD Unavailable [phone] Luis Villasenor MD Primary Care Provider [phone] Reason for Visit * Reason Comments Follow Up Needs labs, feeling drained, wants a b-12 Encounter Details Date Type Department Care Team (Late Contact Info) Description 11/14/2024 9:00 AM EDT Office Visit SEP Sarah [address] 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 Youngblood, cardiology, [facility] Orders: - warfarin (COUMADIN) 5 mg [...] Gran% 0.6 % Lymph Percent 9.9 % [place] Percent 8.3 % Eos Percent 3.5 % Baso Percent 0.6 % Neut # 7.7 (H) 1.6 - 6.1 x10(3)/mcL IMMGRAN# 0.1 0.0 - 0.1 x10(3)/mcL Lymph # 1.0 (L) 1.2 - 3.9 x10(3)/mcL [place] # 0.8 0.3 - 0.9 x10(3)/mcL Eos# [...] The provider educated the patient (or legal medical detail representative) on the use of the ambient listening artificial intelligence tool, [employer]. They were informed that this AI tool [...] of such information, the patient (or legal medical detail representative), and each individual in attendance with [...] 11/14/2024 3:44 PM EDT [facility] MCH 28.3 26.0 - 34.0 pg 11/14/2024 3:44 PM EDT [facility] MCHC 30.4(L) 30.7 - 35.5 g/dL 11/14/2024 3:44 PM EDT [facility] RDW 14.8 <=14.9 % 11/14/2024 3:44 PM EDT [facility] Platelet 375(H) 155 - 369 x10(3)/mcL 11/14/2024 3:44 PM EDT [facility] MPV 9.6 8.8 - 12.5 fL 11/14/2024 3:44 PM EDT [facility] Neut Percent 77.1 % 11/14/2024 3:44 PM EDT [facility] Comment:Neutrophils equals s egs plus bands Imm Gran% 0.6 % 11/14/2024 3:44 PM EDT [facility] Comment:Automated count of m etamyelocytes, myelocytes and promyelocytes. Lymph Percent 9.9 % 11/14/2024 3:44 PM EDT [facility] Rhea Percent 8.3 % 11/14/2024 3:44 PM EDT [facility] Eos Percent 3.5 % 11/14/2024 3:44 PM EDT [facility] Baso Percent 0.6 % 11/14/2024 3:44 PM EDT [facility] Neut # 7.7(H) 1.6 - 6.1 x10(3)/mcL 11/14/2024 3:44 PM EDT [facility] Comment:Neutrophils equals s egs plus bands IMMGRAN# 0.1 0.0 - 0.1 x10(3)/mcL 11/14/2024 3:44 PM EDT [facility] Comment:Automated count of m etamyelocytes, myelocytes and promyelocytes. An absolute IG <0.1 is reported as 0.0. Lymph # 1.0(L) 1.2 - 3.9 x10(3)/mcL 11/14/2024 3:44 PM EDT [facility] Rhea # 0.8 0.3 - 0.9 x10(3)/mcL 11/14/2024 3:44 PM EDT [facility] Eos# 0.4 0.0 - 0.5 x10(3)/mcL 11/14/2024 3:44 PM EDT [facility] Baso # 0.1 0.0 - 0.1 x10(3)/mcL 11/14/2024 3:44 PM EDT [facility] Blood VENOUS BLOOD / Unknown Venipuncture / Unknown 11/14/2024 10:07 AM EDT 11/14/2024 10:07 AM EDT us Amarilis Nolan HEAD TRACK COACH HEMATOLOGY ORDERABLES Fin al Result [facility] [address] [facility] , [place] [address] * (ABNORMAL) COMPREHENSIVE METABOLIC PANEL (11/14/2024 10:07 [...] 11/14/2024 4:07 PM EDT [facility] Albumin 3.4 3.2 - 4.6 gm/dL 11/14/2024 4:07 PM EDT [facility], [facility] Total Protein 7.8 6.4 - 8.3 gm/dL 11/14/2024 4:07 PM EDT [facility], [facility] Bili Total 0.6 0.2 - 1.3 mg/dL 11/14/2024 4:07 PM EDT [facility] ALT <5 <=41 U/L 11/14/2024 4:07 PM EDT [facility] AST 23 <=40 U/L 11/14/2024 4:07 PM EDT [facility] Alk Phos 465(H) 36 - 123 U/L 11/14/2024 4:07 PM EDT [facility] eGFR (CKD-EPIcr 2020) 39(L) >=60 mL/min/1.7 3 m2 11/14/2024 4:07 PM EDT [facility] Comment:Estimated GFR was ca lculated using the CKD-EPIcr (2020) equation refit without race. The equation is recommended by the National Kidney Foundation - [place] Society of Nephrology Task Force. Blood VENOUS BLOOD / Unknown Venipuncture / Unknown 11/14/2024 10:07 AM EDT 11/14/2024 10:07 AM EDT Amarilis Nolan HEAD TRACK COACH CHEMISTRY ORDERABLES Kell orlando Result [facility], [facility] [address] [facility] , [address] [place] [id number] * (ABNORMAL) FERRITIN (11/14/2024 10:07 AM EDT) Ferritin 728(H) 30 - 150 ng/mL 11/14/2024 4:07 PM EDT [facility] Comment:The lower threshold of 30 is [...] 11/14/2024 10:07 AM EDT Narrative [facility] [employer] - 11/14/2024 4:07 PM EDT Ingestion of rocio doses of biotin (>5 mg/day) taken within 8 hours of drawing blood sample can interfere with this immunoassay test. Amarilis Nolan APRN CHEMISTRY ORDERABLES Kell l Result Performing Organization Address City/[facility] Co de Phone Number [facility] [employer], [facility] [address] [facility] , [place] [address] * (ABNORMAL) IRON+TIBC (11/14/2024 10:07 AM EDT) Iron 26(L) 30 - 160 mcg/dL 11/14/2024 4:07 PM EDT [facility] Transferrin 153(L) 200 - 360 mg/dL 11/14/2024 4:07 PM EDT [facility] [employer] Transferrin Saturation 12(L) 20 - 50 % 11/14/2024 4:07 PM EDT [facility] [employer] TIBC 214(L) 250 - 400 mcg/dL 11/14/2024 4:07 PM EDT [facility] [employer] Blood VENOUS BLOOD / Unknown Venipuncture / Unknown 11/14/2024 10:07 AM EDT 11/14/2024 10:07 AM EDT Amarilis Nolan APRN CHEMISTRY ORDERABLES Kell l Result Performing Organization Address City/[facility]/ZIP Co de Phone Number [facility] [employer], [facility] [address] [facility] , [place] [address] * VITAMIN B12/ FOLIC ACID (11/14/2024 10:07 AM EDT) Vitamin B12 801 232 - 1,245 pg/mL 11/14/2024 4:02 PM EDT [facility] Folate 9.89 >=4.80 ng/mL 11/14/2024 4:02 PM EDT [email or web address] Blood VENOUS BLOOD / Unknown Venipuncture / Unknown 11/14/2024 10:07 AM EDT 11/14/2024 10:07 AM EDT Narrative [email or web address] - 11/14/2024 4:02 PM EDT Ingestion of rocio doses of biotin (>5 mg/day) taken within 8 hours of drawing blood sample can interfere with this immunoassay test. us Amarilis Nolan APRN CHEMISTRY ORDERABLES Kell darion Result [email or web address] [address] [facility] , [address] [place] [id number] documented in this encounter Visit Diagnoses Diagnosis [...] documented as of this encounter Care Teams Offal Separator Relationship Specialty Start Date End Date Luis Villasenor MD [address] [place] [id number] PCP - OBGYN 01/09/10 Luis Villasenor MD [address] [place] [address] PCP - General 01/09/10 documented as of this encounter
--- OUTSIDE RECORDS SUMMARY | 2024-11-30 09:38 | XMS_ITS | Encounter Summary ---
Author Organization [place] [address] Care Team Providers Care Traffic Signal Mechanic Name Role Phone Luis Villasenor MD Unavailable [phone] Luis Villasenor MD Primary Care Provider [phone] Reason for Visit * Reason Onset Date Comments Other 10/11/2024 FYI- pt is wanti palliative care, home health asking if pcp would like to do this. Encounter Details Date Type Department Care Team (Late st Contact Info) Description 10/11/2024 Telephone SEP Sarah [address] 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
--- OUTSIDE RECORDS SUMMARY | 2024-11-30 09:38 | XMS_ITS | Encounter Summary ---
Author Organization [place] [address] Care Team Providers Care Practical Nurse Clinical Coordinator Name Role Phone Luis Villasenor MD Unavailable [phone] Luis Villasenor MD Primary Care Provider Reason for Visit * Reason Onset Date Comments Orders 09/30/2024 SN,verbal Encounter Details Date Type Department Care Team (Late Contact Info) Description 09/30/2024 Telephone SEP Sarah [facility] [place] [address] [address] Luis Villasenor MD COUNTRY [facility] [place] [address] Orders (SN,verbal ) Social History Tobacco [...] name: Ivis) What Orders are being requested: Jail Reason Orders are Needed (Diagnosis): increase frequency for more education Is a verbal order being requested: Yes If non-[facility], where should the order be faxed [...] documented as of this encounter Care Teams Practical Nurse Clinical Coordinator Relationship Specialty Start Date End Date Luis Villasenor MD [address] [place] [address] PCP - OBGYN 01/09/10 Luis Villasenor MD [address] [place] [phone] PCP - General 01/09/10 documented as of this encounter
--- OUTSIDE RECORDS SUMMARY | 2024-11-30 09:38 | XMS_ITS | Encounter Summary ---
Author Organization [place] [address] Care Team Providers Care E Commerce Solution Architect Name Role Phone Luis Villasenor MD Unavailable [phone] Luis Villasenor MD Primary Care Provider Encounter Details Date Type Department Care Team (Late Contact Info) Description 10/26/2024 Orders Only SEP Sarah [address] [place] [phone] Amarilis Nolan, CREDIT RATING CHECKER [address] [place] [address] Flank pain (Primary Dx) Social History [...] EDT 10/26/2024 11:17 AM EDT Amarilis Nolan CREDIT RATING CHECKER MICROBIOLOGY - GENERAL OR DERABLES Final Result [facility] [address] [facility] , [place] [address] * (ABNORMAL) COMPREHENSIVE METABOLIC PANEL (10/26/2024 11:03 [...] 10/26/2024 4:28 PM EDT [facility] AST 28 <=40 U/L 10/26/2024 4:28 PM EDT [facility] Alk Phos 259(H) 36 - 123 U/L 10/26/2024 4:28 PM EDT [facility] eGFR (CKD-EPIcr 2020) 43(L) >=60 mL/min/1.7 3 m2 10/26/2024 4:28 PM EDT [facility] Comment:Estimated GFR was ca lculated using the CKD-EPIcr (2020) equation refit without race. The equation is recommended by the National Kidney Foundation - [place] [employer] of Nephrology Task Force. Blood VENOUS BLOOD / Unknown Venipuncture / Unknown 10/26/2024 11:03 AM EDT 10/26/2024 11:03 AM EDT Amarilis Nolan CREDIT RATING CHECKER CHEMISTRY ORDERABLES Kell orlando Result [facility] [address] [facility] , [place] [address] documented in this encounter Visit Diagnoses Diagnosis Flank pain- Primary Abdominal pain, unspecified site documented in this encounter Additional Health Concerns Assessment Noted Time A fall risk assessment has been complete d for the patient 06/14/2024 9:03 AM EST documented as of this encounter Care Teams E Commerce Solution Architect Relationship Specialty Start Date End Date Luis Villasenor MD [address] [place] [address] PCP - OBGYN 01/09/10 Luis Villasenor MD [address] [place] [address] PCP - General 01/09/10 documented as of this encounter
--- OUTSIDE RECORDS SUMMARY | 2024-11-30 09:38 | XMS_ITS | Encounter Summary ---
Author Organization [place] [address] Care Team Providers Care Certified Pharmacy Tech Name Role Phone Luis Villasenor MD Unavailable [phone] Luis Villasenor MD Primary Care Provider Reason for Visit * Reason Onset Date Comments Orders 10/07/2024 VO for OT Encounter Details Date Type Department Care Team (Late Contact Info) Description 10/07/2024 Telephone SEP Sarah [facility] [place] [address] Luis Villasenor MD COUNTRY [facility] [place] [address] Orders (VO for OT) Social History [...] a verbal order being requested: Yes If non-[facility], where should the order be faxed [...] documented as of this encounter Care Teams Certified Pharmacy Tech Relationship Specialty Start Date End Date Luis Villasenor MD [address] [place] [phone] PCP - OBGYN 01/09/10 Luis Villasenor MD [address] [place] [phone] PCP - General 01/09/10 documented as of this encounter
--- OUTSIDE RECORDS SUMMARY | 2024-11-30 09:38 | XMS_ITS | Encounter Summary ---
Author Organization [place] [address] Care Team Providers Care Dry Room Operator Name Role Phone Luis Villasenor MD Unavailable [phone] Luis Villasenor MD Primary Care Provider Reason for Visit * Reason Onset Date Comments Orders 09/22/2024 personal touch [facility] care Encounter Details Date Type Department Care Team (Late st Contact Info) Description 09/22/2024 Telephone SEP Sarah [facility] [address] Luis Villasenor MD [place] [facility] [place] [address] Orders (personal touch home care) Social [...] Author No 02/09/2020 8:59 AM EDT Nghia Rdemond CMA * Is the person blind or [...] order being requested: Yes If non-[facility], where should the order be faxed [...] documented as of this encounter Care Teams Dry Room Operator Relationship Specialty Start Date End Date Luis Villasenor MD [address] [place] [address] PCP - OBGYN 01/09/10 Luis Villasenor MD [address] [place] [phone] PCP - General 01/09/10 documented as of this encounter
--- OUTSIDE RECORDS SUMMARY | 2024-11-30 09:38 | XMS_ITS | Encounter Summary ---
Author Organization [place] [address] Care Team Providers Care Extra Gang Supervisor Name Role Phone Luis Villasenor MD Unavailable [phone] Luis Villasenor MD Primary Care Provider [phone] Reason for Visit * Reason Onset Date Comments Relaying Information 10/26/2024 Reporting n ew issues with pain. Encounter Details Date Type Department Care Team (Late st Contact Info) Description 10/26/[address] [facility] [place] [address] Luis Villasenor MD IMAGINATE - [employer] [facility] [place] [address] Relaying Information (Reporting new issues with [...] documented as of this encounter Care Teams Extra Gang Supervisor Relationship Specialty Start Date End Date Luis Villasenor MD [address] [employer] [place] [phone] PCP - OBGYN 01/09/10 Luis Villasenor MD [address] [facility] - [employer] [facility] [place] [phone] PCP - General 01/09/10 documented as of this encounter
--- OUTSIDE RECORDS SUMMARY | 2024-11-30 09:38 | XMS_ITS | Encounter Summary ---
Author Organization [place] [address] Care Team Providers Care Cardiovascular Operating Room Nurse Name Role Phone Luis Villasenor MD Unavailable [phone] Luis Villasenor MD Primary Care Provider Reason for Visit * Reason Onset Date Comments 911/Red Flag 09/19/2024 possible blood c lot Encounter Details Date Type Department Care Team (Late st Contact Info) Description 09/19/2024 Nurse Triage SEP Sarah [facility] [address] Luis Villasenor MD COUNTRY [facility] [place] [address] Peripheral edema [...] of Assessment Author No 02/09/2020 8:59 AM Nghai Aguirre CMA * Does this person have [...] 124/78(2024 9:10 AM EDT) No Nyla, Grace, SUPERINTENDENT CONSTRUCTION Maintain a healthy diet, exercise regularly and [...] documented as of this encounter Care Teams Cardiovascular Operating Room Nurse Relationship Specialty Start Date End Date Luis Villasenor MD [address] [facility] [place] [address] PCP - OBGYN 01/09/10 Luis Villasenor MD [address] [facility] [place] [address] PCP - General 01/09/10 documented as of this encounter
--- OUTSIDE RECORDS SUMMARY | 2024-11-30 09:39 | XMS_ITS | Encounter Summary ---
Author Organization [place] [address] Care Team Providers Care Wax Molder Name Role Phone Luis Villasenor MD Unavailable [phone] Luis Villasenor MD Primary Care Provider Encounter Details Date Type Department Care Team (Late Contact Info) Description 11/11/2024 Orders Only SEP Sarah [address] [place] [phone] Amarilis Nolan, POULTRY SEXER [address] [place] [address] Flank pain (Primary Dx); Blood loss; [...] 3:44 PM EDT [facility] [place] Percent 8.3 % 11/14/2024 3:44 PM EDT [facility] Eos Percent 3.5 % 11/14/2024 3:44 PM EDT [facility] Baso Percent 0.6 % 11/14/2024 3:44 PM EDT [facility] Neut # 7.7(H) 1.6 - 6.1 x10(3)/mcL 11/14/2024 3:44 PM EDT [facility] Comment:Neutrophils equals s egs plus bands IMMGRAN# 0.1 0.0 - 0.1 x10(3)/[facility] [place] 11/14/2024 3:44 PM EDT [facility] Comment:Automated count of m etamyelocytes, myelocytes and promyelocytes. An absolute IG <0.1 is reported as 0.0. Lymph # 1.0(L) 1.2 - 3.9 x10(3)/[facility] [place] 11/14/2024 3:44 PM EDT [facility] [place] # 0.8 0.3 - 0.9 x10(3)/[facility] [place] 11/14/2024 3:44 PM EDT [facility] Eos# 0.4 0.0 - 0.5 x10(3)/[facility] [place] 11/14/2024 3:44 PM EDT [facility] Baso # 0.1 0.0 - 0.1 x10(3)/[facility] [place] 11/14/2024 3:44 PM EDT [facility] Blood VENOUS BLOOD / Unknown Venipuncture / Unknown 11/14/2024 10:07 AM EDT 11/14/2024 10:07 AM EDT Amarilis Nolan POULTRY SEXER HEMATOLOGY ORDERABLES Fin al Result [facility] [address] [facility] , [place] [address] * (ABNORMAL) COMPREHENSIVE METABOLIC PANEL (11/14/2024 10:07 AM EDT) Sodium 133(L) 136 - 145 mmol/L 11/14/2024 4:07 PM EDT [facility] Potassium 4.5 3.5 - 5.0 mmol/L 11/14/2024 4:07 PM EDT [facility] Chloride 94(L) 98 - 107 mmol/L 11/14/2024 4:07 PM EDT [facility] Total CO2 29 22 - 29 mmol/L 11/14/2024 4:07 PM EDT [facility] Anion Gap 10 7 - 16 mmol/L 11/14/2024 4:07 PM EDT [facility] Calcium 9.2 8.8 - 10.4 mg/dL 11/14/2024 4:07 PM EDT [facility] Glucose Lvl 122(H) 70 - 99 mg/dL 11/14/2024 4:07 PM EDT [facility] BUN 15 8 - 23 mg/dL 11/14/2024 4:07 PM EDT [facility] Creatinine 1.38(H) 0.51 - 1.30 mg/dL 11/14/2024 4:07 PM EDT [facility] Albumin 3.4 3.2 - 4.6 gm/dL 11/14/2024 4:07 PM EDT [facility] Total Protein 7.8 6.4 - 8.3 gm/dL 11/14/2024 4:07 PM EDT [facility] Bili Total 0.6 0.2 - 1.3 mg/dL 11/14/2024 4:07 PM EDT [facility] ALT <5 <=41 U/L 11/14/2024 4:07 PM EDT [facility] AST 23 <=40 U/L 11/14/2024 4:07 PM EDT [facility] Alk Phos 465(H) 36 - 123 U/L 11/14/2024 4:07 PM EDT [facility] eGFR (CKD-EPIcr 2020) 39(L) >=60 mL/min/1.7 3 m2 11/14/2024 4:07 PM EDT [facility] Comment:Estimated GFR was ca lculated using the CKD-EPIcr (2020) equation refit without race. The equation is recommended by the National Kidney Foundation - [place] [employer] of Nephrology Task Force. Blood VENOUS BLOOD / Unknown Venipuncture / Unknown 11/14/2024 10:07 AM EDT 11/14/2024 10:07 AM EDT us Amarilis Nolan POULTRY SEXER CHEMISTRY ORDERABLES Kell orlando Result [facility] [address] [facility] , [address] [place], [place] [id number] documented in this encounter Visit Diagnoses Diagnosis Flank pain- Primary Abdominal pain, unspecified site Blood loss Hemorrhage, unspecified Dehydration documented in this encounter Additional Health Concerns Assessment Noted Time A fall risk assessment has been complete d for the patient 06/14/2024 9:03 AM EST documented as of this encounter Care Teams Wax Molder Relationship Specialty Start Date End Date Luis Villasenor MD [address] [place] [phone] PCP - OBGYN 01/09/10 Luis Villasenor MD [address] [place] [phone] PCP - General 01/09/10 documented as of this encounter
--- OUTSIDE RECORDS SUMMARY | 2024-11-30 09:39 | XMS_ITS | Encounter Summary ---
Author Organization [place] [address] Care Team Providers Care Power Operator Name Role Phone Luis Villasenor MD Unavailable [phone] Luis Villasenor MD Primary Care Provider [phone] Encounter Details Date Type Department Care Team (Latest Contact Info) Description 10/28/2024 Results Follow-Up SEP Sarah [address] [place] [phone] Amarilis Nolan, PLUG WIRER [address] [place] [address] COMPREHENSIVE METABOLIC PANEL, URINE CULTURE (NO [...] documented as of this encounter Care Teams Power Operator Relationship Specialty Start Date End Date Luis Villasenor MD [address] [place] [phone] PCP - OBGYN 01/09/10 Luis Villasenor MD [address] [place] [phone] PCP - General 01/09/10 documented as of this encounter
--- OUTSIDE RECORDS SUMMARY | 2024-11-30 09:39 | XMS_ITS | Encounter Summary ---
Author Organization [place] [address] Care Team Providers Care Warp Bleaching Vat Tender Name Role Phone Luis Villasenor MD Unavailable [phone] Luis Villasenor MD Primary Care Provider Reason for Visit * Reason Onset Date Comments Other 11/01/2024 Encounter Details Date Type Department Care Team (Late Contact Info) Description 11/01/2024 Telephone SEP Sarah [address] [place] [address] Luis Villasenor MD [address] [place] [address] Other Social History Tobacco Use Types [...] documented as of this encounter Care Teams Warp Bleaching Vat Tender Relationship Specialty Start Date End Date Luis Villasenor MD [address] [place] [phone] PCP - OBGYN 01/09/10 Luis Villasenor MD [address] [place] [phone] PCP - General 01/09/10 documented as of this encounter
--- OUTSIDE RECORDS SUMMARY | 2024-11-30 09:39 | XMS_ITS | Continuity of Care Document ---
Author Organization [facility] Address [address] [place] [address] Care Team Providers Care Farm Marketer Name Role Phone ADDY GONZALES General Surgeon CARLOS A COATS Primary Care Provider VERONIKA RIVER [facility] [phone] Assessment No assessment recorded. Plan of Treatment Reminders Order Date Submit Date Provider Last Modified By Organization Details Last Modified Time Details Appointments OV EST 30 2024 11:00A M Hanna Snider PA-C Not available Not available Not available OV EST 30 2024 11:00A M Hanna Snider PA-C Not available Not available Not available Lab carcinoem bryonic Ag, quant, serum or plasma 2024 025 [email or web address] [facility], [address] [facility], [place], [address], 11/08/2024 10:04:49 CMP, serum or plasma 2024 025 [email or web address] [facility], [address] [facility], [place], [address], 11/01/2024 15:54:32 CBC w/ diff 2024 025 [email or web address] [facility], [address] [facility], [place], [address], 11/08/2024 10:04:49 Referral None recorded. Procedures None recorded. Surgeries None recorded. Imaging None recorded. Medication Orders nystatin 100,000 unit/gram topical powder 2024 025 [id number], [address] [place], [address], 11/01/2024 13:56:59 Patient TargetsNo targets recorded. Patient InstructionsNo instructions recorded. Reason for Referral None Reported. Problems Name Problem SNOMED Code Status Onset Date Resolution Date Notes Provider Name and Address Organization Details Recorded Time Headache 16094326 Active 2024 Christine yusuf [place] - [facility] & [place] 5 10:27:12 Metastatic malignant neoplasm to liver 73911784 Active [address], [place], [address] , [place] - [facility] & [place] 3 14:27:25 Mass of colon 355088889 Active [address], [place], [address] , [place] - [facility] & [place] 3 14:27:30 Anemia 962572108 Active [address], [place], [address] , [place] [facility] & [place] 3 14:27:36 Nausea and vomiting 80628749 Active [address], [place], [address] , [place] [facility] & [place] 3 14:27:46 Unintentional weight loss 926473924 Active [address], [facility] [address] , [place] - [facility] & [place] 3 16:13:07 Night sweats 35329263 Active [address], [place], [address] , [facility] & [place] 3 16:13:12 Problem Notes Documentation Provider Name and Address Organization Details Recorded Time Oncology Patient Navigator : [facility]. Pt states she is doing well at this time. Hospice consult was briefly discussed and pt declined at this time. ONN encouraged pt to reach out may any needs/concerns arise. [email or web address] [place] 11/01/2024 13:52:48 Procedures Surgical History Date Name Laterality Status Provider Name and Address Organization Details Recorded Time 04/29/20 23 Venipuncture completed Hanna Snider PA-C [address], [place], [address], [facility] & [place] 04/27/2023 15:05:29 04/15/20 23 Venipuncture completed Stephanie Maravilla [facility] & [place] 04/15/2023 15:24:55 hysterectomy completed Laurel Samuels [facility] & [place] 03/11/2023 15:30:22 extraction of cataract completed Laurelesvin Samuels [facility] & [place] 03/11/2023 15:30:36 excision of colon completed Loree Tadeo [facility] & [place] 04/21/2023 11:32:07 Imaging Results None recorded. Procedure Notes None recorded. Medical Equipment None Reported. Allergies Allergen ID Allergen Name Allergen Category Reaction Reaction Severity Criticality Documentation Date Start Date Code Code System Note Provider Name and Address Organization Details Recorded Time 76495 tetracycl ine medicatio n hives Not available high 02/19/2023 44524 RxNorm [facility] [place] 14:03:33 Medications Name Sig Start [...] Updated DateTime 5 162.56 cm 33.5 kg/m2 56058.5 1 g 97.6 [degF] 98 % 98 % 75 /min 185 mm[Hg] 79 mm[Hg] Laurel Samuels [facility] & [place] 13:16:39 Social History Question Answer Notes LastModified by Tiny Post Details LastModified Time Tobacco Smoking Status Never Smoker Brandy yusuf, [facility] & [place] 02/19/2023 14:02:59 What Is Your Level Of Caffeine Consumption? None [email or web address] Information not available 02/19/2023 What Was The Date Of Your Most Recent Tobacco Screening? 11/23/2023 Information not available 11/23/2023 Has Tobacco Cessation Counseling Been Provided? No [email or web address] Information not available 07/13/2023 Sex: Unknown Functional Status Question Answer Note LastModified by Organizat ion Details LastModified Time Do you use any illicit or recreational drugs? No [email or web address] Information not available 02/19/2023 Do you or have you ever used any other forms of tobacco or nicotine? No [email or web address] Information not available 02/19/2023 What is your level of alcohol consumption? None [email or web address] Information not available 02/19/2023 Mental Status None recorded. Family History Nothing Reported. Medical History No medical history recorded. Gynecological HistoryNo gynecological history recorded. Obstetrics History GPAL:G 0 P 0 0 0 0 Immunizations Vaccine Type Date Status Note Provider Nam e and Address Organization Details Recorded Time pneumococcal polysaccharide PPV23 7 completed Stephanie Maravilla [facility] & [place] 12/21/2023 09:56:34 Past Encounters Encounter ID Performer Location Encounter Start Date Encounter Closed Date Diagnosis/Indication Diagnosis SNOMED-CT Code Diagnosis ICD10 Code Diagnosis Note [id number] Hanna Snider PA-C [facility] [address] [facility] [address] [place] [address] 11/01/2024 13:00:10 11/01/2024 13:35:08 Antineoplastic chemotherapy regimen 686987704 Z51.11 Week 1 5FU Leucovorin Vectibix on [...] 25, 2024. Malignant tumor of ascending colon 945609608 C18.2 CT scan of the abdomen and [...] 8.2 hematocrit 29.0. MCV 67.9. Platelet count 032667. Normal cell differenti al. Low serum folate [...] study published in September 2022 in the [place] [facility] Medicine of combined Avastin therapy with [...] malignancy . Metastatic malignant neoplasm to liver 78656292 C78.7 CT scan of the abdomen and [...] any treatment for her malignancy . Nausea 514319707 R11.0 As needed Zofran and Phenergan prescribed [...] ons. Pain due t o neoplastic disease 2482539458 9102 G89.3 Abdominal pain has improved and pain is controlled with current pain medication s. Anemia 422715308 D64.9 Right-side d colon mass concerning for malignancy . Will assess for any signs of iron deficiency . Hemoglobin previously 8.0. Concern for blood loss from colon mass. Patient reports dark stools. Labs on August 10, 2024 with hemoglobin slightly low at 11.9. She is receiving infusional iron as needed. Adopted 366447116 Z62.89 8 Patient is adopted and discussed hereditary gene panel. Patient does have family history of her son having bladder cancer. [facility] hereditary panel sent Hypokalemia 61994745 E87 .6 Currently taking for potassium 20 mEq daily. Will follow up labs. 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 [...] reports depression has improved. Atopic conjunctivitis 23 5144076 H10.12 Conjunctiv itis due to Vectibix. This has improved. Iron defic iency anemia 74151699 D50.9 Receiving infusional iron as needed. Will continue to monitor. Insomnia 057275268 G47.0 0 Patient has had difficulty sleeping for most of her life. She has tried multiple medication s without relief. She is tried Mirtazapin e and lorazepam without improvemen t of insomnia. Discussed trying trazodone instead. Restless legs 31050182 G 25.81 Patient taking Requip for restless legs. Generalized rash 3627184 06 R21 Rash due to Vectibix. This has improved. Atrial fibrillation 4943 6004 I48.91 Patient has been diagnosed with congestive heart failure and atrial fibrillati on. She has been started on Coumadin. She is following with the Coumadin clinic at [facility]. Congestive heart failure 43557800 I50.9 Patient has been diagnosed with congestive heart failure. She has started lasix and is following with a cardiologi st. Cachexia 143644933 R64 Patient has had decreased appetite and weight loss. She is drinking nutritiona l supplement s. Discussed appetite stimulant. Patient previously refused. She has started on Megace. She does not like the taste of Megace. Discussed Megace tablets instead of liquid but patient declines at this time. Will continue to monitor History of deep vein thrombosis 670162091 Z86.718 Patient developed right lower extremity pain [...] repeat venous duplex. Drug therapy finding 309 172355 Z79.01 She continues on Coumadin due to a fib. She is following with the Coumadin clinic at [facility]. Candidiasis of skin 4988 3006 B37.2 Patient [...] Name 11/01/2024 1 [place] Vicky Roblero [id number] Vicky Roblero 11/01/2024 2 [employer] (MEDICARE SUPPLEMENT) Vicky Roblero [id number] Vicky Roblero Notes Date Note Type Note Provider Name and Address Organization Details Recorded Time 11/01/2024 text/html 79 yo F returns for evaluation of metastatic colon cancer. Patient recently seen on February 17, 2023 in the emergency room at [facility] with abdominal pain. Patient reported [...] 8.2 hematocrit 29.0. MCV 67.9. Platelet count 722725. Normal cell differential. Low serum folate of [...] with metastatic colorectal cancer. Discussed chemotherapy with [place] based regimen with 5FU Leucovorin if [...] with the Coumadin clinic at [facility]. She is scheduled for cardiac MRI. Patient [...] study published in September 2022 in the [place] [facility] Medicine of combined Avastin therapy with [...] to have if needed. Hanna Snider PA-C [address], [place], [address], [facility] - [facility] - [place] & [place] 11/01/2024 13:57:44 OBGyn Episode No OBEpisode recorded.
--- OUTSIDE RECORDS SUMMARY | 2024-11-30 09:39 | XMS_ITS | Clinical Summary ---
Author Organization [facility]. [facility] Address [address] [place] [address] Phone Care Team Providers Care Outsole Handler Name Role Phone Luis Villasenor MD Unavailable [phone] Luis Villasenor MD Primary Care Provider Allergies [...] mouth every 6 hours as needed. Active iron sucrose (VENOFER) 200 mg iron/10 mL IV SolutionIndications :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 due to chronic blood loss Inject 10 mL into the vein once a week for 2 doses. iron sucrose (venofer) 200mg in sodium chloride 0.9% 120ml IVPB 20 mL 11/29/19 25 025 Active Hospital, Clinic, or Other Facility Administered [...] early 2024 per patient decision Managed by [facility] Oncology and Hematology Assessment & Plan (10/02/2024 10:12 PM EDT): - has active disease - managed by Oncology -has stopped treatment 07/2024 Assessment & Plan (06/14/2024 9:41 PM EST): - has active disease - currently undergoing chemotherapy / immunotherapy - managed by Oncology, [facility] Oncology and Hematology Malignant tumor of ascending colon 06/14/2024 Overview (06/14/2024): CT scan 01/2023 with multiple masses of liver and ascending colon thickening. 04/2023, R hemicolectomy and anastomosis, pathology of invasive moderately differentiated adenocarcinoma. Metastatic adenocarcinoma in 2/10 lymph nodes. Wedge resection of the liver with metastatic adenocarcinoma consistent with colon primary. Continues with chemotherapy [id number]. Managed by [facility] Oncology and Hematology Assessment & Plan (10/02/2024 10:12 PM EDT): - has active disease - managed by Oncology -has stopped treatment 07/2024 Assessment & Plan (06/14/2024 9:41 PM EST): - has active disease - currently undergoing chemotherapy / immunotherapy - managed by Oncology, [facility] Oncology and Hematology ad terminal makeup operator (current) use of anticoagulants 2024 Overview (10/02/2024): Coumadin therapy, Afib Assessment & Plan (10/02/2024 10:12 PM EDT): On coumadin therapy, managed by the coumadin clinic at [facility], Dr. Youngblood, cardiology. Taking 5mg M/W/ and 2.5mg other days Paroxysmal atrial fibrillation 06/14/2024 Overview (06/14/2024): Dr. 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 DNR (do not resuscitate) 03/30/2015 Living will, counseling/discussion 03/30/2015 Overview (02/09/2020): Declines skilled nursing vent support and ferry terminal agent hydration and nutrition via feeding tube or [...] glucose tolerance) Overview (03/30/2015): Calorie restrict attempt 5545-0734 calories per day. 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) (Primary Dx); History of DVT (deep vein thrombosis); Paroxysmal atrial fibrillation (HCC); Cobalamin deficiency; Flank pain; Dehydration; Blood loss 11/11/2024 Orders Only [address] [place] [address] Amarilis Nolan, MIGUEL ANGEL Flank pain (Primary Dx); Blood loss; Dehydration 11/04/2024 11:15 AM EDT Office Visit [address] [place] [address] Amarilis Nolan, RUBBER OFF Diverticulitis of large intestine without perforation or abscess without bleeding (Primary Dx); Peripheral edema; Malignant tumor of ascending colon (HCC); 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 ///) 10/11/[address] [place] [address] Luis Villasenor MD Other (FYI- pt is wanting palliative care, home health asking if pcp would like to do this. 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 [address] Amarilis Nolan APRN Other (Calling with INR results from ); Patient Returning Call (Check status of INR message); Follow Up ( requesting call back from office with patient's dental hygiene professor 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 Please advise) from Last 3 Months Immunizations Immunization Administration Dates Next Due Pneumococcal Conjugate Vaccine 13 Valent 015 Pneumococcal Polysaccharide 23 Valent 12/04/2016 Tdap 01/20/2011 01/20/2021 Surgical History Surgery Date Site/Laterality Comments HYSTERECTOMY secondary to uterine fibroids TONGUE SURGERY benign tumor removed CARDIAC CATHETERIZATION CATARACT REMOVAL 07/09/2013 Left LEFT EYE CATARACT EXTRACTION WITH PHACOEMULSIFICATION AND INTRAOCULAR LENS; Surgeon: Keith Lynn MD; Location: [facility]; Service: Ophthalmology Medical devices from this surgery are in the Medical Devices section. CATARACT REMOVAL 08/03/2013 Eye/Right RIGHT EYE CATARACT EXTRACTION WITH PHACOEMULSIFICATION AND INTRAOCULAR LENS ; Surgeon: Keith Lynn MD; Location: [facility]; Service: Ophthalmology Medical devices from this [...] Thyroid disease hypothyroid DNR (do not resuscitate) 2015 Living will, counseling/discussion 2015 Family History * [...] or Tdap) 01/20/2021 01/20/2011 Lipids 02/08/2021 02/09/2020, 09/0 08/2018, 09/07/2017, Additional history exists RSV or 60+ (1 - 1-dose 75+ series) 09/22/2022 Hemoglobin A1c 03/10/2023 09/08/2022, 01/30, 02/02/2019, Additional history exists Influenza Vaccine (#1) 2025 07/12/2015 (Declin ed) Kidney Health: eGFR 11/14/2025 11/14/2024, 10/26/2024, 09/01/2022, [...] [place] CMA Medical Devices Implanted Type Area Fishing Manager Device Identifier Shelf Expiration Date Model / Serial / Lot Lens Intraocular 23.0 Diopter Acrysof Iq 13.0mm Length 6.0mm - [id number] Implanted:Qty: 1 on 07/09/2013 by Keith Lynn MD at [facility] Left: Eye [facility]URG 01/30/2018 [id number]-34. 0 / [id number] / Lens Intraocular 23.5 Diopter Acrysof Iq 13.0mm Length 6.0mm - [id number] Implanted:Qty: 1 on 08/03/2013 by Keith Lynn MD at [facility] Right: Eye [facility]:SURG 03/01/2018 [id number]-34. 5 / [id number] / Procedures Procedure Name Priority Date/Time [...] PM EDT [facility] Transferrin Saturation 12(L) 20 - 50 % 11/14/2024 4:07 PM EDT [facility] TIBC 214(L) 250 - 400 mcg/dL 11/14/2024 4:07 PM EDT [facility] Blood VENOUS BLOOD / Unknown Venipuncture / Unknown 11/14/2024 10:07 AM EDT 11/14/2024 10:07 AM EDT Amarilis Nolan APRN CHEMISTRY ORDERABLES Kell l Result Performing Organization Address [facility] de Phone Number [facility] , [place] [phone] * VITAMIN B12/ FOLIC ACID (11/14/2024 10:07 AM EDT) Pathologist [facility] Vitamin B12 801 232 - 1,245 pg/mL 11/14/2024 4:02 PM EDT [facility], [facility] Folate 9.89 >=4.80 ng/mL 11/14/2024 4:02 PM EDT [facility] Blood VENOUS BLOOD / Unknown Venipuncture / Unknown 11/14/2024 10:07 AM EDT 11/14/2024 10:07 AM EDT Narrative [facility], [facility] - 11/14/2024 4:02 PM EDT Ingestion of rocio doses of biotin (>5 mg/day) taken within 8 hours of drawing blood sample can interfere with this immunoassay test. Amarilis Nolan APRN CHEMISTRY ORDERABLES Kell l Result Performing Organization Address [facility] Phone Number [address] [place] [address] * (ABNORMAL) CBC WITH DIFF (11/14/2024 10:07 AM EDT) WBC 10.0 3.7 - 10.3 x10(3)/mcL 11/14/2024 3:44 PM EDT [facility] RBC 3.50(L) 3.90 - 5.20 x10(6)/mcL 11/14/2024 3:44 PM EDT [facility] Hgb 9.9(L) 11.2 - 15.7 g/dL 11/14/2024 3:44 PM EDT [facility] Hct 32.6(L) 34.0 - 45.0 % 11/14/2024 3:44 PM EDT [facility] MCV 93.1 80.0 - 100.0 fL 11/14/2024 3:44 PM EDT [facility] MCH 28.3 26.0 - 34.0 pg 11/14/2024 3:44 PM EDT [facility] MCHC 30.4(L) 30.7 - 35.5 g/dL 11/14/2024 3:44 PM EDT [facility] RDW 14.8 <=14.9 % 11/14/2024 3:44 PM EDT [facility] Platelet 375(H) 155 - 369 x10(3)/mcL 11/14/2024 3:44 PM EDT [facility] MPV 9.6 8.8 - 12.5 fL 11/14/2024 3:44 PM EDT [facility] Neut Percent 77.1 % 11/14/2024 3:44 PM EDT [facility] Comment:Neutrophils equals s egs plus bands Imm Gran% 0.6 % 11/14/2024 3:44 PM EDT [facility] Comment:Automated count of m etamyelocytes, myelocytes and promyelocytes. Lymph Percent 9.9 % 11/14/2024 3:44 PM EDT [facility] Crowley Percent 8.3 % 11/14/2024 3:44 PM EDT [facility] Eos Percent 3.5 % 11/14/2024 3:44 PM EDT [facility] Baso Percent 0.6 % 11/14/2024 3:44 PM EDT [facility] Neut # 7.7(H) 1.6 - 6.1 x10(3)/mcL 11/14/2024 3:44 PM EDT [facility] Comment:Neutrophils equals s egs plus bands IMMGRAN# 0.1 0.0 - 0.1 x10(3)/mcL 11/14/2024 3:44 PM EDT [facility] Comment:Automated count of m etamyelocytes, myelocytes and promyelocytes. An absolute IG <0.1 is reported as 0.0. Lymph # 1.0(L) 1.2 - 3.9 x10(3)/mcL 11/14/2024 3:44 PM EDT [facility], [facility] Crowley # 0.8 0.3 - 0.9 x10(3)/[facility] 11/14/2024 3:44 PM EDT [facility], [facility] Eos# 0.4 0.0 - 0.5 x10(3)/[facility] 11/14/2024 3:44 PM EDT [facility], [facility] Baso # 0.1 0.0 - 0.1 x10(3)/[facility] 11/14/2024 3:44 PM EDT [facility] Blood VENOUS BLOOD / Unknown Venipuncture / Unknown 11/14/2024 10:07 AM EDT 11/14/2024 10:07 AM EDT Amarilis Nolan APRN HEMATOLOGY ORDERABLES Fin al Result [facility] [address] [facility] , [place] [address] * (ABNORMAL) FERRITIN (11/14/2024 10:07 AM EDT) Ferritin 728(H) 30 - 150 ng/mL 11/14/2024 4:07 PM EDT [facility] Comment:The lower threshold of 30 is not statistically defined, nor internally validated. The threshold has been updated to more closely reflect a physiologic basis. Susanna Z, et al. Physiologically based serum ferritin thresholds for iron deficiency in children and non- women: a [place] National Health and Nutrition Examination Surveys (NHANES) serial cross-sectional study. Lancet Haematol 2021;8:e572-82. Blood VENOUS BLOOD / Unknown Venipuncture / Unknown 11/14/2024 10:07 AM EDT 11/14/2024 10:07 AM EDT Narrative [facility] - 11/14/2024 4:07 PM EDT Ingestion of rocio doses of biotin (>5 mg/day) taken within 8 hours of drawing blood sample can interfere with this immunoassay test. us Amarilis Nolan APRN CHEMISTRY ORDERABLES Kell darion Result [facility] [address] [facility] , [place] [address] * (ABNORMAL) COMPREHENSIVE METABOLIC PANEL (11/14/2024 10:07 [...] EDT [facility] Total Protein 7.8 6.4 - 8.3 gm/dL [...] - 123 U/L 11/14/2024 4:07 PM EDT [facility], [facility] eGFR (CKD-EPIcr 2020) 39(L) >=60 mL/min/1.7 3 m2 11/14/2024 4:07 PM EDT [facility], [facility] Comment:Estimated GFR was ca lculated using the CKD-EPIcr (2020) equation refit without race. The equation is recommended by the National Kidney Foundation - [place] Society of Nephrology Task Force. Blood VENOUS BLOOD / Unknown Venipuncture / Unknown 11/14/2024 10:07 AM EDT 11/14/2024 10:07 AM EDT Amarilis Nolan APRN CHEMISTRY ORDERABLES Kell l Result Performing Organization Address [facility] Co de Phone Number [facility], [address] , [place] [address] * URINE CULTURE (NO STAIN) (10/26/2024 11:17 AM EDT) Pathologist [facility] Culture Multiple bacterial species isolated from urine consistent with urogenital commensal organisms. 10/27/2024 10:23 PM EDT [facility], [facility] Urine STRUCTURE OF URINARY TRACT PROPER / Unknown 10/26/2024 11:17 AM EDT 10/26/2024 11:17 AM EDT Amarilis Nolan APRN MICROBIOLOGY - GENERAL OR DERABLES Final Result Performing Organization Address [facility]/ZIP Co de Phone Number [facility] [address] , [place] [address] * (ABNORMAL) SEP URINALYSIS POC [...] ORDERABLES Fi nal Result [facility] [place] [address] [place] [address] * (ABNORMAL) HEMOGLOBIN A1C (09/08/2022 2:38 PM EDT) Hgb A1C 7.3(H) 4.2 - 5.6 % 09/08/2022 8:16 PM EDT [facility] Avg Glucose 163 mg/dL 09/08/2022 8:16 PM EDT [facility]REF[facility] Blood VENOUS BLOOD / Unknown Venipuncture / Unknown 09/08/2022 2:38 PM EDT 09/08/2022 2:38 PM EDT Narrative [facility] - 09/08/2022 8:16 PM EDT REFERENCE RANGE: Normal: 4.0-5.6% Pre-diabetes: 5.7-6.4% Provisional diagnosis of diabetes: >6.4% Hgb F>10% and anything which shortens red cell survival, such as hemolytic anemia, or unstable hemoglobin variants such as HbSS, HbSC, or HbCC, will lower the HbA1c value associated with a given level of glycemic control. Luis Villasenor MD CHEMISTRY ORDERABLES Final Result Performing Organization Address [facility] Co de Phone Number [facility] [address] , [place] [address] * LIPID PANEL REFLEX (02/09/2020 9:38 AM EDT) [facility] Cholesterol 157 <200 mg/dL 02/09/2020 4:17 PM EDT [facility] Comment: < 200 Desirable 200 - 239 Borderline High >= 240 High Triglyceride 85 <150 mg/dL 02/09/2020 4:17 PM EDT [facility] Comment: < 150 Normal 150 - 199 Borderline High 200 - 499 High >= 500 Very High HDL 41 >=40 mg/dL 02/09/2020 4:17 PM EDT [facility] Comment: > 60 Optimal 40 - 60 Acceptable < 40 Low LDL Calculated 99 <100 mg/dL 02/09/2020 4:17 PM EDT [facility] Non-HDL-C Calculated 116 <=129 mg/dL 02/09/2020 4:17 PM EDT [facility] Comment: <130 Desirable 130-159 Above Desirable 160-189 Borderline High 190-219 High >= 220 Very High Fasting Specimen? Yes None 020 4:17 PM EDT [facility] Blood VENOUS BLOOD / Unknown Venipuncture / Unknown 02/09/2020 9:38 AM EDT 02/09/2020 9:42 AM EDT Luis Villasenor MD CHEMISTRY ORDERABLES Final Result Performing Organization Address [facility] Co de Phone Number [facility] [address] [facility] , [place] [address] * HEPATITIS C ANTIBODY - SCREENING (12/04/2016 11:16 AM EDT) Hep C Ab Negative Negative [facility] Blood specimen (specimen) UPPER LIMB STRUCTURE / Unknown 12/04/2016 11:16 AM EDT 12/04/2016 4:52 PM EDT Luis Villasenor MD HEMATOLOGY ORDERABLES Final Result [facility] [address] [place] [address] from Last 3 Months or Most Recently Relevant to Health Maintenance Insurance [place]ICARE [place] PART A [place] B [employer] [facility] MEDICARE [place] PART A AND B [employer] [place] [address] [place] [address] MEDICARE [place] PART A AND [place] [employer] Advance Directives For more information, please contact: [phone] * Full Code (Latest Code Status on File) Date Activated Date Inactivated Comments 10/28/2018 11:51 AM 10/28/2018 9:26 PM Care Teams Outsole Handler Relationship Specialty Start Date End Date Luis Villasenor MD [address] [place] [address] PCP - OBGYN 01/09/10 Luis Villasenor MD [address] [place] [address] PCP - General 01/09/10
--- OUTSIDE RECORDS SUMMARY | 2024-11-30 09:40 | XMS_ITS | Encounter Summary ---
Author Organization [place] [address] Care Team Providers Care Chief Yeoman Name Role Phone Luis Villasenor MD Unavailable [phone] Luis Villasenor MD Primary Care Provider Encounter Details Date Type Department Care Team (Late Contact Info) Description 11/28/2024 Orders Only [facility] Sarah [address] [place] [id number] Amarilis Nolan, AGRICULTURAL ENGINEERING TECHNICIAN [address] [place] [address] 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 due to chronic blood loss (Primary Dx) Social History Tobacco Use Types [...] of Assessment Author No 02/09/2020 8:59 AM EDNhgia Paris CMA * Is the person blind [...] Refills Last Filled Start Date End Date iron sucrose (VENOFER) 200 mg iron/10 mL IV SolutionIndication s: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 due to chronic blood loss Inject 10 mL into the vein once a week for 2 doses. iron sucrose (venofer) 200mg in sodium chloride 0.9% 120ml IVPB 20 mL 11/28/2024 documented in this encounter Plan of Treatment [...] as of this encounter Visit Diagnoses Diagnosis 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 due to chronic blood loss- Primary 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 secondary to blood loss (chronic) documented in this encounter Additional Health Concerns Assessment Noted Time A fall risk assessment has been complete d for the patient 06/14/2024 9:03 AM EST documented as of this encounter Care Teams Chief Yeoman Relationship Specialty Start Date End Date Luis Villasenor MD [address] [place] [id number] PCP - OBGYN 01/09/10 Luis Villasenor MD [address] [place] [address] PCP - General 01/09/10 documented as of this encounter
--- OUTSIDE RECORDS SUMMARY | 2024-11-30 09:40 | XMS_ITS | Encounter Summary ---
Author Organization [place] [address] Care Team Providers Care Diesel Bus Mechanic Name Role Phone Luis Villasenor MD Unavailable [phone] Luis Villasenor MD Primary Care Provider Reason for Visit * Reason Onset Date Comments Orders 11/25/2024 Encounter Details Date Type Department Care Team (Late Contact Info) Description 11/25/2024 Telephone SEP Sarah [address] [place] [address] Amarilis Nolan, STUD MASTER/MISTRESS [address] [place] [address] Orders Social History Tobacco Use Types Packs/Day Years [...] Telephone Encounter - Pau Gray RMA - 11/28/2024 3:30 PM EDT Order has been faxed * Telephone Encounter - Pau Gray RMA - 11/25/2024 9:23 AM EDT Pts daughter reached out stating that you were going to place an order for an iron infusion. Pleaseadvise documented in this encounter Plan of Treatment [...] documented as of this encounter Care Teams Diesel Bus Mechanic Relationship Specialty Start Date End Date Luis Villasenor MD [address] [place] [id number] PCP - OBGYN 01/09/10 Luis Villasenor MD [address] [place] [id number] PCP - General 01/09/10 documented as of this encounter
--- OUTSIDE RECORDS SUMMARY | 2024-11-30 09:40 | XMS_ITS | Encounter Summary ---
Author Organization [place] [address] Care Team Providers Care Waste Management Specialist Name Role Phone Luis Villasenor MD Unavailable [phone] Luis Villasenor MD Primary Care Provider Encounter Details Date Type Department Care Team (Late st Contact Info) Description 09/26/2010 Orders Only [facility] [address] [place] [address] Jennifer Nagel MD [address] [place] [address] Social History Tobacco Use Types Packs/Day Years [...] a practice prior to that practice using [facility] for Medical Records. Performing Provider: JENNIFER NAGEL Jennifer Nagel MD IMG ECHO ORDERABLES Final Result documented in this encounter Visit Diagnoses Not on filedocumented in this encounter Care Teams Waste Management Specialist Relationship Specialty Start Date End Date Luis Villasenor MD [address] [place] [address] PCP - OBGYN 01/09/10 Luis Villasenor MD [address] [place] [address] PCP - General 01/09/10 documented as of this encounter
[2024-11-30 10:37] LABS: PHA INR Fingerstick 3.5 (0.9-1.1)
== END 2024-11-30 10:51 ==
PROVIDERS: PCP Nurse Practitioner Family; Visit Provider Physician Assistant
DX: Z79.01 Long term (current) use of anticoagulants (principal)
CPT/HCPCS: 85610; 99211; G0463

== ENCOUNTER 2024-12-12 13:03 | Inpatient (IN) | payer MEDICARE, SELFPAY ==
--- OUTSIDE RECORDS SUMMARY | 2024-10-26 11:00 | XMS_ITS | Encounter Summary ---
Author Organization [place] [address] Care Team Providers Care Milk Drier Name Role Phone Luis Villasenor MD Unavailable [phone] Luis Villasenor MD Primary Care Provider Reason for Visit * Reason Comments Labs Only Encounter Details Date Type Department Care Team (Late Contact Info) Description 10/26/2024 11:00 AM EDT Clinical Support TODD [place] [address] [place] [address] Freya Coon [facility] [place] [address] [place] [address] Flank pain Social History Tobacco Use Types [...] (NO STAIN) (10/26/2024 11:17 AM EDT) Pathologist [facility] Culture Multiple bacterial species isolated from urine consistent with urogenital commensal organisms. 10/27/2024 10:23 PM EDT [facility] Urine STRUCTURE OF URINARY TRACT PROPER / Unknown 10/26/2024 11:17 AM EDT 10/26/2024 11:17 AM EDT us Amarilis Nolan APRN MICROBIOLOGY - GENERAL OR DERABLES Final Result [facility] [address] [facility] , [place] [address] * (ABNORMAL) SEP URINALYSIS POC [...] ORDERABLES Fi nal Result TODD [place] [address] [place] [address] * (ABNORMAL) COMPREHENSIVE METABOLIC PANEL (10/26/2024 11:03 [...] 10/26/2024 4:28 PM EDT [facility] Albumin 3.5 3.2 - 4.6 gm/dL 10/26/2024 4:28 PM EDT [facility] Total Protein 7.4 6.4 - 8.3 gm/dL 10/26/2024 4:28 PM EDT [facility] Bili Total 0.7 0.2 - 1.3 mg/dL 10/26/2024 4:28 PM EDT [facility] ALT 11 <=41 U/L 10/26/2024 4:28 PM EDT [facility] AST 28 <=40 U/L 10/26/2024 4:28 PM EDT [facility] Alk Phos 259(H) 36 - 123 U/L 10/26/2024 4:28 PM EDT [facility], [facility] eGFR (CKD-EPIcr 2020) 43(L) >=60 mL/min/1.7 3 m2 10/26/2024 4:28 PM EDT [facility] Comment:Estimated GFR was ca lculated using the CKD-EPIcr (2020) equation refit without race. The equation is recommended by the National Kidney Foundation - [place] Society of Nephrology Task Force. Blood VENOUS BLOOD / Unknown Venipuncture / Unknown 10/26/2024 11:03 AM EDT 10/26/2024 11:03 AM EDT us Amarilis Nolan MACHINE BOBBIN WINDER CHEMISTRY ORDERABLES Kell l Result [facility] [address] [facility] , [place] [address] documented in this encounter Visit Diagnoses Diagnosis Flank pain Abdominal pain, unspecified site documented in this encounter Additional Health Concerns Assessment Noted Time A fall risk assessment has been complete d for the patient 06/14/2024 9:03 AM EST documented as of this encounter Care Teams Milk Drier Relationship Specialty Start Date End Date Luis Villasenor MD [address] [place] [address] PCP - OBGYN 01/09/10 Luis Villasenor MD [address] [place], [place] [address] PCP - General 01/09/10 documented as of this encounter
--- OUTSIDE RECORDS SUMMARY | 2024-11-04 11:15 | XMS_ITS | Encounter Summary ---
Author [place] [address] Care Team Providers Care Oilseed Meat Presser Name Role Phone Luis Villasenor MD Unavailable [phone] Luis Villasenor MD Primary Care Provider Reason for Visit * Reason Comments Hospital Follow Up Diverticulitis Encounter Details Date Type Department Care Team (Latest Contact Info) Description 11/04/2024 11:15 AM EDT Office Visit SEP Sarah [address] [place] [id number] Amarilis Nolan, MOP MAKER [address] [place] [address] Diverticulitis of large intestine without perforation or [...] this encounter Progress Notes * Amarilis Nolan, MOP MAKER - 11/04/2024 11:15 AM EDT Assessment [...] without bleeding Comments: inpatient hospital stay at [facility] November 03, symptoms resolved Peripheral [...] consistent with colon primary. Continues with chemotherapy [id number]. Managed by [facility] Oncology and Hematology 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) (Chronic) Overview: CT scan 01/2023 with multiple masses of liver and ascending colon thickening. 04/2023, R hemicolectomy and anastomosis, pathology of invasive moderately differentiated adenocarcinoma. Metastatic adenocarcinoma in 2/10 lymph nodes. Wedge resection of the liver with metastatic adenocarcinoma consistent with colon primary. Continues with chemotherapy [id number]. Managed by [facility] Oncology and Hematology Return in about 6 weeks (around 12/16/2024) for 6 week follow up, video visit ok. Subjective CHEMA Roblero is a 79 y.o. female Chief Complaint Patient presents with Hospital Follow Up Diverticulitis History of Present Illness The patient is a 79-year-old female here for a hospital follow-up. She was admitted to [facility] for diverticulitis. Denies ongoing symptoms [...] provider educated the patient (or legal patient registration representative) on the use of the ambient listening artificial intelligence tool, [employer]. They were informed that this AI tool [...] such information, the patient (or legal patient registration representative), and each individual in attendance with [...] documented as of this encounter Care Teams Oilseed Meat Presser Relationship Specialty Start Date End Date Luis Villasenor MD [address] [place] [id number] PCP - OBGYN 01/09/10 Luis Villasenor MD [address] [place] [id number] PCP - General 01/09/10 documented as of this encounter
--- OUTSIDE RECORDS SUMMARY | 2024-11-14 09:00 | XMS_ITS | Encounter Summary ---
Author Organization [place] [address] Care Team Providers Care Long Term Care Administrator Name Role Phone Luis Villasenor MD Unavailable [phone] Luis Villasenor MD Primary Care Provider Reason for Visit * Reason Comments Follow Up Needs labs, feeling drained, wants a b-12 Encounter Details Date Type Department Care Team (Late Contact Info) Description 11/14/2024 9:00 AM EDT Office Visit [facility] Sarah [address] [place] [phone] Amarilis Nolan, [employer] [address] [place] [address] 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) (Primary [...] No 02/09/2020 8:59 AM EDT Nghia Redmond, PEARL DIVER documented in this encounter Ordered Prescriptions Prescription [...] encounter Progress Notes * Ovidio Amarilis Terrie, [employer] - 11/14/2024 9:00 AM EDT Assessment & [...] 2024 per patient decision Managed by [facility] Orders: - CBC WITH [...] fibrillation (HCC) (Chronic) Overview: Dr. Youngblood, cardiology, [facility] Orders: - warfarin (COUMADIN) 5 mg Oral [...] Gran% 0.6 % Lymph Percent 9.9 % [place] Percent 8.3 % Eos Percent 3.5 % Baso Percent 0.6 % Neut # 7.7 (H) 1.6 - 6.1 x10(3)/mcL IMMGRAN# 0.1 0.0 - 0.1 x10(3)/mcL Lymph # 1.0 (L) 1.2 - 3.9 x10(3)/mcL [place] # 0.8 0.3 - 0.9 x10(3)/mcL Eos# [...] The provider educated the patient (or legal installation service representative) on the use of the ambient listening artificial intelligence tool, [employer]. They were informed that this AI tool [...] of such information, the patient (or legal installation service representative), and each individual in attendance [...] 11/14/2024 3:44 PM EDT [facility] MCH 28.3 26.0 - 34.0 pg 11/14/2024 3:44 PM EDT [facility] MCHC 30.4(L) 30.7 - 35.5 g/dL 11/14/2024 3:44 PM EDT [facility] RDW 14.8 <=14.9 % 11/14/2024 3:44 PM EDT [facility] Platelet 375(H) 155 - 369 x10(3)/mcL 11/14/2024 3:44 PM EDT [facility] MPV 9.6 8.8 - 12.5 fL 11/14/2024 3:44 PM EDT [facility] Neut Percent 77.1 % 11/14/2024 3:44 PM EDT [facility] Comment:Neutrophils equals s egs plus bands Imm Gran% 0.6 % 11/14/2024 3:44 PM EDT [facility] Comment:Automated count of m etamyelocytes, myelocytes and promyelocytes. Lymph Percent 9.9 % 11/14/2024 3:44 PM EDT [facility] [place] Percent 8.3 % 11/14/2024 3:44 PM EDT [facility] Eos Percent 3.5 % 11/14/2024 3:44 PM EDT [facility] Baso Percent 0.6 % 11/14/2024 3:44 PM EDT [facility] Neut # 7.7(H) 1.6 - 6.1 x10(3)/mcL 11/14/2024 3:44 PM EDT [facility] Comment:Neutrophils equals s egs plus bands IMMGRAN# 0.1 0.0 - 0.1 x10(3)/mcL 11/14/2024 3:44 PM EDT [facility] Comment:Automated count of m etamyelocytes, myelocytes and promyelocytes. An absolute IG <0.1 is reported as 0.0. Lymph # 1.0(L) 1.2 - 3.9 x10(3)/mcL 11/14/2024 3:44 PM EDT [facility] [place] # 0.8 0.3 - 0.9 x10(3)/mcL 11/14/2024 3:44 PM EDT [facility] Eos# 0.4 0.0 - 0.5 x10(3)/mcL 11/14/2024 3:44 PM EDT [facility] Baso # 0.1 0.0 - 0.1 x10(3)/mcL 11/14/2024 3:44 PM EDT [facility] Blood VENOUS BLOOD / Unknown Venipuncture / Unknown 11/14/2024 10:07 AM EDT 11/14/2024 10:07 AM EDT us Amarilis Nolan [employer] HEMATOLOGY ORDERABLES Fin al Result [facility] [address] [facility] , [place] [address] * (ABNORMAL) COMPREHENSIVE METABOLIC PANEL (11/14/2024 10:07 [...] 11/14/2024 4:07 PM EDT [facility] Albumin 3.4 3.2 - 4.6 gm/dL 11/14/2024 4:07 PM EDT [facility], [facility] Total Protein 7.8 6.4 - 8.3 gm/dL 11/14/2024 4:07 PM EDT [facility], [facility] Bili Total 0.6 0.2 - 1.3 mg/dL 11/14/2024 4:07 PM EDT [facility], [facility] ALT <5 <=41 U/L 11/14/2024 4:07 PM EDT [facility], [facility] AST 23 <=40 U/L 11/14/2024 4:07 PM EDT [facility], [facility] Alk Phos 465(H) 36 - 123 U/L 11/14/2024 4:07 PM EDT [facility] eGFR (CKD-EPIcr 2020) 39(L) >=60 mL/min/1.7 3 m2 11/14/2024 4:07 PM EDT [facility] Comment:Estimated GFR was ca lculated using the CKD-EPIcr (2020) equation refit without race. The equation is recommended by the National Kidney Foundation - [place] [employer] of Nephrology Task Force. Blood VENOUS BLOOD / Unknown Venipuncture / Unknown 11/14/2024 10:07 AM EDT 11/14/2024 10:07 AM EDT Amarilis Nolan [employer] CHEMISTRY ORDERABLES Kell orlando Result [facility], [facility] [address] [facility] , [address] [place] [id number] * (ABNORMAL) FERRITIN (11/14/2024 10:07 AM EDT) Ferritin 728(H) 30 - 150 ng/mL 11/14/2024 4:07 PM EDT [facility], [facility] Comment:The lower threshold of 30 is not [...] 11/14/2024 10:07 AM EDT Narrative [facility] - 11/14/2024 4:07 PM EDT Ingestion of rocio doses of biotin (>5 mg/day) taken within 8 hours of drawing blood sample can interfere with this immunoassay test. Amarilis Nolan APRN CHEMISTRY ORDERABLES Kell l Result Performing Organization Address City/[facility] Co de Phone Number [facility], [facility] [address] [facility] , [place] [address] * (ABNORMAL) IRON+TIBC (11/14/2024 10:07 AM EDT) Iron 26(L) 30 - 160 mcg/dL 11/14/2024 4:07 PM EDT [facility] Transferrin 153(L) 200 - 360 mg/dL 11/14/2024 4:07 PM EDT [facility] Transferrin Saturation 12(L) 20 - 50 % 11/14/2024 4:07 PM EDT [facility] TIBC 214(L) 250 - 400 mcg/dL 11/14/2024 4:07 PM EDT [facility] Blood VENOUS BLOOD / Unknown Venipuncture / Unknown 11/14/2024 10:07 AM EDT 11/14/2024 10:07 AM EDT Amarilis Nolan APRN CHEMISTRY ORDERABLES Kell l Result Performing Organization Address City/[facility]/ZIP Co de Phone Number [facility], [facility] [address] [facility] , [place] [address] * VITAMIN B12/ FOLIC ACID (11/14/2024 10:07 AM EDT) Vitamin B12 801 232 - 1,245 pg/mL 11/14/2024 4:02 PM EDT [facility] Folate 9.89 >=4.80 ng/mL 11/14/2024 4:02 PM EDT [facility] Blood VENOUS BLOOD / Unknown Venipuncture / Unknown 11/14/2024 10:07 AM EDT 11/14/2024 10:07 AM EDT Narrative [facility] - 11/14/2024 4:02 PM EDT Ingestion of rocio doses of biotin (>5 mg/day) taken within 8 hours of drawing blood sample can interfere with this immunoassay test. us Amarilis Nolan APRN CHEMISTRY ORDERABLES Kell darion Result [facility] [address] , [address] [place] [phone] documented in this encounter Visit Diagnoses Diagnosis [...] documented as of this encounter Care Teams Long Term Care Administrator Relationship Specialty Start Date End Date Luis Villasenor MD [address] [place] [id number] PCP - OBGYN 01/09/10 Luis Villasenor MD [address] [place] [phone] PCP - General 01/09/10 documented as of this encounter
[2024-12-12] VITALS (11 sets, daily range): BP systolic 87–100; BP diastolic 45–57; PULSE 61–97; RESP 16–18; TEMP 36.5–36.6; O2SAT 64–100; BMI 32.9; BMI 34.3
--- NOTE | 2024-12-12 13:10 | ECG_ITS ---
APPROVED REPORT Exam: Resting ECG HR:69 bpm ECG Measurements Heart Rate 69 AXES IL 198 P 75 QRSd 91 QRS 1 QT 379 T 46 QTc 397 Conclusion Normal sinus rhythm at [address] or T wave changes concerning for ischemia Electronically signed by : Charlotte Murry, 12/12/2024 18:00:57
--- NOTE | 2024-12-12 13:15 | XR_ITS ---
PROCEDURE INFORMATION: Exam: XR Chest Exam date and time: 12/12/2024 1:37 PM Age: 79 years old Clinical indication: Shortness of breath; Additional info: Short of breath TECHNIQUE: Imaging protocol: Radiologic exam of the chest. Views: 1 view. COMPARISON: CT ANGIO CHEST PE PROTOCOL 09/19/2024 4:18 PM FINDINGS: Tubes, catheters and devices: Right infusion port tip in the SVC. Lungs: Linear atelectasis in the left lung base. No consolidations. Pleural spaces: Unremarkable. No pleural effusion. No pneumothorax. Heart/Mediastinum: Unremarkable. No cardiomegaly. Vasculature: Calcified aortic knob. Bones/joints: Moderate degenerative changes bilateral acromioclavicular joints. No acute fracture. IMPRESSION: No acute findings to explain the patient's shortness of breath.
--- NOTE | 2024-12-12 13:18 | ED_ITS ---
<Statement entered by Charlotte Murry DO - 12/12/24 16:54> I was consulted by the KYLIE, and we discussed the complexity of problems being addressed. I approve the treatment and management plan for this patient's care in the emergency department, thus performing a substantial portion of the medical decision making. Charlotte Murry DO Discharge Plan Disposition Patient Disposition: Admitted Clinical Impressions Clinical Impression: ANMOL (acute kidney injury), Hyponatremia Discharge ED Provider: Charlotte Murry General Adult HPI <Joya Capone (ED), PROCESS DEVELOPMENT CHEMIST - Last Filed: 12/12/24 14:38> General Chief complaint: Recheck/Abnormal Lab/Rx Stated complaint: hypotension Time Seen by Provider: 12/12/24 13:05 History of Present Illness HPI narrative: This is a 79-year-old female who presents to the ED today for complaint of feeling dehydrated. EMS was called out for hypotension initially her blood pressure was 107 systolic when EMS arrived. Home health was there today and said her blood pressure was in the low 90s when they became concerned. Patient tells us that she has been drinking water but not eating. Says she did have some hallucinations last night and she did this the last time she was dehydrated. Patient also tells us that she has had to have blood transfusions frequently and the last time she had a blood transfusion was 3 months. She has colon cancer that metastasized to the liver. She did chemo but it has been 3 to 4 months since she has done chemo or radiation. She is not on hospice. Patient is aware that she will from this. These were her words. Patient tells me she is on Coumadin and comes to the Coumadin clinic with Apolinar here. She also takes Lasix 40 mg daily. Patient does have oxygen as needed at home. Patient does have history of PE, DVT, A-fib, stated heart failure but none listed in the chart as a history. She has had nausea but no vomiting recently. No fevers or chills. No other symptoms including abdominal pain no other pain stated today. She does have oxycodone 10 mg for pain to take. But she has not taken any pain medication today or yesterday. Related Data Home Medications ?Medication ?Instructions ?Recorded ?Confirmed potassium chloride 20 mEq 20 meq PO DAILY 07/14/24 tablet,extended release nystatin 100,000 unit/gram topical 1 applic topical BI DP PRN Rash 09/20/24 12/12/24 powder (Nystop) hydrocodone 10 mg-acetaminophen 1 - 2 tab PO Q4HP PRN Moderate 12/12/24 12/12/24 325 mg tablet Pain (Scale Score 5-6) ondansetron 8 mg disintegrating 8 mg PO TIDP PRN Nause a And 12/12/24 12/12/24 tablet Vomiting spironolactone 25 mg tablet 25 mg PO DAILY 12/12/24 warfarin 2 mg tablet (Jantoven) 2 mg PO DAILY 12/12/24 12/12/24 Allergies Allergy/AdvReac Type Severity Reaction Status Date / Time tetracycline Allergy Rash Verified 09/19/24 14:19 [facility] <Joya Capone (ED), PROCESS DEVELOPMENT CHEMIST - Last Filed: 12/12/24 14:38> [facility] Disclaimer: The information contained in this section may have been updated after the patient was seen, as this information can be updated by other users. Medical History Hx of deep venous thrombosis Hx pulmonary embolism Interatrial cardiac shunt PAF (paroxysmal atrial fibrillation) Palpitations Colon cancer metastasized to liver Social History Smoking Status: Never smoker alcohol intake: never current occupational status: other Travel in the last 8 weeks?: None Have you lived/traveled outside US in past 30 days?: No Contact w/someone who lives/traveled outside US past 30 days?: No Exposure to someone with infectious disease in past 14 days?: No Do you have a fever (greater than 100.4 F or 38 C)?: No Have you tested positive for COVID-19?: No Exposed to someone with COVID-19 in past 14 days?: No Do you have a sore throat?: No Do you have a cough?: No Do you have any weakness?: No Do you have any diarrhea?: No Are you experiencing any unusual bleeding?: No Do you have any muscle aches/pain?: No Do you have any abdominal pain?: No Are you experiencing loss of taste or smell?: No Other Medical History Have you received the Flu Vaccine for this season: No Have you received the Pneumonia Vaccine: No <Joya Capone (ED), PROCESS DEVELOPMENT CHEMIST - Last Filed: 12/12/24 14:38> ROS Obtained: Yes Systems reviewed as appropriate & no additional complaints except as documented Constitutional Constitutional: Reports as per HPI Physical Exam <Joya Capone (ED), PROCESS DEVELOPMENT CHEMIST - Last Filed: 12/12/24 14:38> General General appearance: alert and in no apparent distress Head Head exam: atraumatic and normocephalic Eye Eye exam: Present normal appearance, PERRL and EOMI ENT ENT exam: Present normal oropharynx and mucous membranes moist Neck Neck exam: Present normal inspection, full ROM and trachea midline Respiratory Respiratory exam: Present normal lung sounds bilaterally Cardiovascular Cardiovascular exam: Present regular rate, normal rhythm, normal heart sounds, +S1 and +S2 Abdominal Exam Abdominal exam: Present soft and normal bowel sounds Extremities Exam Extremities exam: Present full ROM, normal capillary refill and edema (Mild) Neurological Exam Neurological exam: Present alert and oriented X3 Skin Skin exam: Present warm, dry and intact Medical Decision Making <Joya Kilwanda (ED), PROCESS DEVELOPMENT CHEMIST - Last Filed: 12/12/24 14:38> Medical Records Screening: Per USPSTF and CDC recommendations, given the prevalence of disease in our region, it is our hospital?s policy to screen for HIV and viral Hepatitis for all patients aged 18 and over and those with ongoing risk factors. [place] Inquiry Pt receiving controlled substance: No [place] was queried for this patient: No Vital Signs: 12/12/24 13:06 12/12/24 13:15 12/12/24 13:31 Temperature 97.9 F Temperature Source Oral Pulse Rate 65 Pulse Rate [Right Brachial] 72 Respiratory Rate 17 Blood Pressure 99/57 L 88/47 L Blood Pressure [Right Arm] 99/57 L Blood Pressure Mean 60 Blood Pressure Mean [Right Arm] 71 02 Sat by Pulse Oximetry 64 L 97 Oxygen Delivery Method Nasal Cannula Oxygen Flow Rate (LPM) 2 12/12/24 13:54 12/12/24 14:00 12/12/24 14:30 Temperature Temperature Source Pulse Rate 61 Pulse Rate [Right Brachial] Respiratory Rate Blood Pressure 94/50 L 91/45 L 88/49 L Blood Pressure [Right Arm] Blood Pressure Mean 68 59 Blood Pressure Mean [Right Arm] 02 Sat by Pulse Oximetry 85 L Oxygen Delivery Method Oxygen Flow Rate (LPM) 12/12/24 15:00 12/12/24 15:10 12/12/24 15:11 Temperature 97.9 F Temperature Source Oral Pulse Rate 78 Pulse Rate [Right Brachial] 78 Respiratory Rate 18 18 Blood Pressure 87/46 L 87/46 L Blood Pressure [Right Arm] 87/46 L Blood Pressure Mean 55 Blood Pressure Mean [Right Arm] 59 02 Sat by Pulse Oximetry 100 Oxygen Delivery Method Nasal Cannula Nasal Cannula Oxygen Flow Rate (LPM) 2 2 Lab Data Lab Results 12/12/24 13:31: WBC 14.3 H, RBC 3.31 L, Hgb 8.8 L, Hct 28.0 L, MCV 84.6, MCH 26.6 L, MCHC 31.4 L, RDW 15.6, Plt Count 266, MPV 9.4, Neut % (Auto) 84.5 H, L ymph % (Auto) 7.8 L, Hutchinson % (Auto) 6.4, Eos % (Auto) 0.4, Baso % (Auto) 0.3, N eut # (Auto) 12.1 H, Lymph # (Auto) 1.1, Hutchinson # (Auto) 0.9, Eos # (Auto) 0.1, Baso # (Auto) 0.0, PT 90.0 H, INR 8.00 H, Sodium 127 L, Potassium 4.8, Chloride 93 L, Carbon Dioxide 26, Anion Gap 12.8, BUN 45 H, Creatinine 2.80 H, Estimated Creat Clear 23, Estimated GFR 16 L*, Est GFR ( Amer) 20 L, Glucose 112 H, Calcium 8.7, Magnesium 2.4 H, Total Bilirubin 1.1, AST 122 H, ALT 19, Alkaline Phosphatase 553 H, Troponin I < 0.01, NT-Pro-B Natriuret Pep 3590 H, Total Protein 7.0 D, Albumin 3.1 L, Globulin 3.9 H, Albumin/Globulin Ratio 0.8 L, Lipase 24 12/12/24 13:31 12/12/24 13:31 Orders (Tests/Meds): ED MEDICATIONS Generic Name Dose Route Start Last Admin Trade Name Freq PRN Reason Stop Dose Admin Acetaminophen 650 mg 12/12/24 15:48 Acetaminophen 325mg Tab PO 01/11/25 15:47 Q4HP PRN Fever or Mild Pain (1-3) Hydrocodone Bitart/Acetaminophen 1 tab 12/12/24 15:48 Hydrocodone/Apap 5/325 Mg Tablet PO 01/11/25 15:47 Q4HP PRN Moderate to Severe Pain (4-10) Hydrocodone Bitart/Acetaminophen 2 tab 12/12/24 16:41 Hydrocodone/Apap 5/325 Mg Tablet PO 01/11/25 16:40 Q4HP PRN Severe Pain (7-10) Sodium Chloride 1,000 mls @ 100 mls/hr 12/12/24 16:45 Sod Chlor 0.9% 1000ml Bag IV 01/11/25 16:44 .Q10H MICHAEL Ondansetron HCl 4 mg 12/12/24 15:48 Ondansetron 4mg/2ml Vial IV 01/11/25 15:47 Q8HP PRN Nausea Promethazine HCl 12.5 mg 12/12/24 15:48 Promethazine Hcl 25mg/Ml 1ml Vial IV 01/11/25 15:47 Q6HP PRN Nausea And Vomiting Sodium Chloride 8 ml 12/12/24 13:15 12/12/24 13:52 Sodium Chloride 0.9% 10ml Vial IV 01/11/25 13:14 8 ml NEEDED PRN Administration dilute pepcid Sodium Chloride 10 ml 12/12/24 15:56 Sodium Chloride 0.9% 10ml Flush Syringe IV 01/11/25 15:55 NEEDED PRN Maintain IV Site Sodium Chloride 25 ml 12/12/24 15:56 Sodium Chloride 0.9% 25ml Bag IV 01/11/25 15:55 NEEDED PRN for Use with IV Promethazine Sodium Chloride 10 ml 12/12/24 16:41 Sodium Chloride 0.9% 10ml Flush Syringe IV 01/11/25 16:40 NEEDED PRN Maintain IV Site Discontinued Medications Generic Name Dose Route Start Last Admin Trade Name Freq PRN Reason Stop Dose Admin Famotidine 20 mg 12/12/24 13:15 12/12/24 13:52 Famotidine 20mg/2ml Vial IV 12/12/24 13:16 20 mg ONCE ONE Administration Sodium Chloride 1,000 mls @ 999 mls/hr 12/12/24 13:15 12/12/24 13:49 Sod Chlor 0.9% 1000ml Bag IV 12/12/24 14:15 999 mls/hr .Q1H1M ONE Administration Ondansetron HCl 4 mg 12/12/24 13:15 12/12/24 13:51 Ondansetron 4mg/2ml Vial IV 12/12/24 13:16 4 mg ONCE ONE Administration ORDERS Category Date Time Status Chest XR -- portable [XR chest portable] Stat Exams 12/12/24 13:15 Completed BNP [NT Pro Brain Natriuretic Pep.] Stat Lab 12/12/24 13:31 Completed CBC [Complete Blood Count Auto Diff] Stat Lab 12/12/24 13:31 Completed Comprehensive Metabolic Panel Stat Lab 12/12/24 13:31 Completed Lipase Stat Lab 12/12/24 13:31 Completed Magnesium Stat Lab 12/12/24 13:31 Completed Prothrombin Time INR Stat Lab 12/12/24 13:31 Completed Trop I [Troponin I] Stat Lab 12/12/24 13:31 Completed Troponin I Q3H Lab 12/12/24 16:15 Received Troponin I Q3H Lab 12/12/24 19:15 Ordered Urinalysis and Microscopic Stat Lab 12/12/24 13:15 Ordered Medical Decision Narrative: patient is a 79-year-old female presenting to the emergency department for evaluation of hypotension, nausea. Patient is hemodynamically stable and nontoxic-appearing upon arrival, afebrile. Differential diagnosis includes dehydration. Patient does have liver cancer metastasized from the colon. Workup will be conducted with hematologic labs, specific imaging. Initial inventions include crystalloid bolus, nausea meds. 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 Imaging informally interpreted by me and remarkable for nothing acute. See formal imaging report. Patient improving with IV fluids. Patient will be admitted once I talked to hospital medicine. Discussed with Jim Landry MD for hyponatremia and ANMOL. Patient current bp 91/45. Discussed care throughout with Dr. Murry. Patient stable for admission. <Charlotte Murry, DO - Last Filed: 12/12/24 16:55> Vital Signs: 12/12/24 13:06 12/12/24 13:15 12/12/24 13:31 Temperature 97.9 F Temperature Source Oral Pulse Rate 65 Pulse Rate [Right Brachial] 72 Respiratory Rate 17 Blood Pressure 99/57 L 88/47 L Blood Pressure [Right Arm] 99/57 L Blood Pressure Mean 60 Blood Pressure Mean [Right Arm] 71 02 Sat by Pulse Oximetry 64 L 97 Oxygen Delivery Method Nasal Cannula Oxygen Flow Rate (LPM) 2 12/12/24 13:54 12/12/24 14:00 12/12/24 14:30 Temperature Temperature Source Pulse Rate 61 Pulse Rate [Right Brachial] Respiratory Rate Blood Pressure 94/50 L 91/45 L 88/49 L Blood Pressure [Right Arm] Blood Pressure Mean 68 59 Blood Pressure Mean [Right Arm] 02 Sat by Pulse Oximetry 85 L Oxygen Delivery Method Oxygen Flow Rate (LPM) 12/12/24 15:00 12/12/24 15:10 12/12/24 15:11 Temperature 97.9 F Temperature Source Oral Pulse Rate 78 Pulse Rate [Right Brachial] 78 Respiratory Rate 18 18 Blood Pressure 87/46 L 87/46 L Blood Pressure [Right Arm] 87/46 L Blood Pressure Mean 55 Blood Pressure Mean [Right Arm] 59 02 Sat by Pulse Oximetry 100 Oxygen Delivery Method Nasal Cannula Nasal Cannula Oxygen Flow Rate (LPM) 2 2 Lab Data Lab Results 12/12/24 13:31: WBC 14.3 H, RBC 3.31 L, Hgb 8.8 L, Hct 28.0 L, MCV 84.6, MCH 26.6 L, MCHC 31.4 L, RDW 15.6, Plt Count 266, MPV 9.4, Neut % (Auto) 84.5 H, L ymph % (Auto) 7.8 L, Hutchinson % (Auto) 6.4, Eos % (Auto) 0.4, Baso % (Auto) 0.3, N eut # (Auto) 12.1 H, Lymph # (Auto) 1.1, Hutchinson # (Auto) 0.9, Eos # (Auto) 0.1, Baso # (Auto) 0.0, PT 90.0 H, INR 8.00 H, Sodium 127 L, Potassium 4.8, Chloride 93 L, Carbon Dioxide 26, Anion Gap 12.8, BUN 45 H, Creatinine 2.80 H, Estimated Creat Clear 23, Estimated GFR 16 L*, Est GFR ( Amer) 20 L, Glucose 112 H, Calcium 8.7, Magnesium 2.4 H, Total Bilirubin 1.1, AST 122 H, ALT 19, Alkaline Phosphatase 553 H, Troponin I < 0.01, NT-Pro-B Natriuret Pep 3590 H, Total Protein 7.0 D, Albumin 3.1 L, Globulin 3.9 H, Albumin/Globulin Ratio 0.8 L, Lipase 24 Orders (Tests/Meds): ED MEDICATIONS Generic Name Dose Route Start Last Admin Trade Name Freq PRN Reason Stop Dose Admin Acetaminophen 650 mg 12/12/24 15:48 Acetaminophen 325mg Tab PO 01/11/25 15:47 Q4HP PRN Fever or Mild Pain (1-3) Hydrocodone Bitart/Acetaminophen 1 tab 12/12/24 15:48 Hydrocodone/Apap 5/325 Mg Tablet PO 01/11/25 15:47 Q4HP PRN Moderate to Severe Pain (4-10) Hydrocodone Bitart/Acetaminophen 2 tab 12/12/24 16:41 Hydrocodone/Apap 5/325 Mg Tablet PO 01/11/25 16:40 Q4HP PRN Severe Pain (7-10) Sodium Chloride 1,000 mls @ 100 mls/hr 12/12/24 16:45 Sod Chlor 0.9% 1000ml Bag IV 01/11/25 16:44 .Q10H MICHAEL Ondansetron HCl 4 mg 12/12/24 15:48 Ondansetron 4mg/2ml Vial IV 01/11/25 15:47 Q8HP PRN Nausea Promethazine HCl 12.5 mg 12/12/24 15:48 Promethazine Hcl 25mg/Ml 1ml Vial IV 01/11/25 15:47 Q6HP PRN Nausea And Vomiting Sodium Chloride 8 ml 12/12/24 13:15 12/12/24 13:52 Sodium Chloride 0.9% 10ml Vial IV 01/11/25 13:14 8 ml NEEDED PRN Administration dilute pepcid Sodium Chloride 10 ml 12/12/24 15:56 Sodium Chloride 0.9% 10ml Flush Syringe IV 01/11/25 15:55 NEEDED PRN Maintain IV Site Sodium Chloride 25 ml 12/12/24 15:56 Sodium Chloride 0.9% 25ml Bag IV 01/11/25 15:55 NEEDED PRN for Use with IV Promethazine Sodium Chloride 10 ml 12/12/24 16:41 Sodium Chloride 0.9% 10ml Flush Syringe IV 01/11/25 16:40 NEEDED PRN Maintain IV Site Discontinued Medications Generic Name Dose Route Start Last Admin Trade Name Pablo PRN Reason Stop Dose Admin Famotidine 20 mg 12/12/24 13:15 12/12/24 13:52 Famotidine 20mg/2ml Vial IV 12/12/24 13:16 20 mg ONCE ONE Administration Sodium Chloride 1,000 mls @ 999 mls/hr 12/12/24 13:15 12/12/24 13:49 Sod Chlor 0.9% 1000ml Bag IV 12/12/24 14:15 999 mls/hr .Q1H1M ONE Administration Ondansetron HCl 4 mg 12/12/24 13:15 12/12/24 13:51 Ondansetron 4mg/2ml Vial IV 12/12/24 13:16 4 mg ONCE ONE Administration ORDERS Category Date Time Status Chest XR -- portable [XR chest portable] Stat Exams 12/12/24 13:15 Completed BNP [NT Pro Brain Natriuretic Pep.] Stat Lab 12/12/24 13:31 Completed CBC [Complete Blood Count Auto Diff] Stat Lab 12/12/24 13:31 Completed Comprehensive Metabolic Panel Stat Lab 12/12/24 13:31 Completed Lipase Stat Lab 12/12/24 13:31 Completed Magnesium Stat Lab 12/12/24 13:31 Completed Prothrombin Time INR Stat Lab 12/12/24 13:31 Completed Trop I [Troponin I] Stat Lab 12/12/24 13:31 Completed Troponin I Q3H Lab 12/12/24 16:15 Received Troponin I Q3H Lab 12/12/24 19:15 Ordered Urinalysis and Microscopic Stat Lab 12/12/24 13:15 Ordered Critical Care <Charlotte Murry, DO - Last Filed: 12/12/24 16:55> Critical Care Time Critical Care Time: No
--- OUTSIDE RECORDS SUMMARY | 2024-12-12 13:36 | XMS_ITS | Encounter Summary ---
Author Organization [place] [address] Care Team Providers Care Sales Technician Home Theater Name Role Phone Luis Villasenor MD Unavailable [phone] Luis Villasenor MD Primary Care Provider Reason for Visit * Reason Onset Date Comments Other 11/01/2024 Encounter Details Date Type Department Care Team (Late Contact Info) Description 11/01/2024 Telephone SEP Sarah [address] [place] [address] Luis Villasenor MD [address] [place] [address] Other Social History Tobacco Use Types [...] documented as of this encounter Care Teams Sales Technician Home Theater Relationship Specialty Start Date End Date Luis Villasenor MD [address] [place] [phone] PCP - OBGYN 01/09/10 Luis Villasenor MD [address] [place] [phone] PCP - General 01/09/10 documented as of this encounter
--- OUTSIDE RECORDS SUMMARY | 2024-12-12 13:36 | XMS_ITS | Encounter Summary ---
Author Organization [place] [address] Care Team Providers Care Paving Crew Foreman Name Role Phone Luis Villasenor MD Unavailable [phone] Luis Villasenor MD Primary Care Provider [phone] Reason for Visit * Reason Onset Date Comments Other 10/11/2024 FYI- pt is wanti palliative care, home health asking if pcp would like to do this. Encounter Details Date Type Department Care Team (Late st Contact Info) Description 10/11/2024 Telephone SEP Sarah [address] [place] [address] Luis Villasenor MD [address] [place] [address] Other (FYI- pt is wanting palliative [...] relationship to patient if not the patient): [facility] home health- Yarelsi What is needed OR why are they [...] documented as of this encounter Care Teams Paving Crew Foreman Relationship Specialty Start Date End Date Luis Villasenor MD [address] [place] [phone] PCP - OBGYN 01/09/10 Luis Villasenor MD [address] [place] [phone] PCP - General 01/09/10 documented as of this encounter
--- OUTSIDE RECORDS SUMMARY | 2024-12-12 13:36 | XMS_ITS | Encounter Summary ---
Author Organization [place] [address] Care Team Providers Care Manager Non Profit Name Role Phone Luis Villasenor MD Unavailable [phone] Luis Villasenor MD Primary Care Provider Reason for Visit * Reason Onset Date Comments Orders 09/22/2024 personal touch [facility] care Encounter Details Date Type Department Care Team (Late st Contact Info) Description 09/22/2024 Telephone SEP Sarah [facility] [address] [address] Luis Villasenor MD [address] [facility] [place] [phone] Orders (personal touch [...] lois ) What Orders are being requested: Fdc Reason Orders are Needed (Diagnosis): check over vital - head to toe assessment and medication education Is a verbal order being requested: Yes If non-[facility], where should the order be [...] documented as of this encounter Care Teams Manager Non Profit Relationship Specialty Start Date End Date Luis Villasenor MD [address] [place] [phone] PCP - OBGYN 01/09/10 Luis Villaesnor MD [address] [place] [phone] PCP - General 01/09/10 documented as of this encounter
--- OUTSIDE RECORDS SUMMARY | 2024-12-12 13:36 | XMS_ITS | Encounter Summary ---
Author Organization [place] [address] Care Team Providers Care Operating Room Assistant Name Role Phone Luis Villasenor MD Unavailable [phone] Luis Villasenor MD Primary Care Provider Encounter Details Date Type Department Care Team (Late Contact Info) Description 10/26/2024 Orders Only SEP Sarah [address] [place] [phone] Amarilis Nolan, DIGITAL MEDIA PRODUCER [address] [place] [address] Flank pain (Primary Dx) Social History [...] EDT 10/26/2024 11:17 AM EDT Amarilis Nolan DIGITAL MEDIA PRODUCER MICROBIOLOGY - GENERAL OR DERABLES Final Result [facility] [address] [facility] , [place] [place] [address] * (ABNORMAL) COMPREHENSIVE METABOLIC PANEL (10/26/2024 11:03 [...] 10/26/2024 4:28 PM EDT [facility], [facility] AST 28 <=40 U/L 10/26/2024 4:28 PM EDT [facility] Alk Phos 259(H) 36 - 123 U/L 10/26/2024 4:28 PM EDT [facility] eGFR (CKD-EPIcr 2020) 43(L) >=60 mL/min/1.7 3 m2 10/26/2024 4:28 PM EDT [facility], [facility] Comment:Estimated GFR was ca lculated using the CKD-EPIcr (2020) equation refit without race. The equation is recommended by the National Kid[employer] - [place] [employer] Neph[employer] Task Force. Blood VENOUS BLOOD / Unknown Venipuncture / Unknown 10/26/2024 11:03 AM EDT 10/26/2024 11:03 AM EDT Amarilis Nolan DIGITAL MEDIA PRODUCER CHEMISTRY ORDERABLES [place] Result [facility], [facility] [address] [facility] , [place] [address] documented in this encounter Visit Diagnoses Diagnosis Flank pain- Primary Abdominal pain, unspecified site documented in this encounter Additional Health Concerns Assessment Noted Time A fall risk assessment has been complete d for the patient 06/14/2024 9:03 AM EST documented as of this encounter Care Teams Operating Room Assistant Relationship Specialty Start Date End Date Luis Villasenor MD [address] [place] [phone] PCP - OBGYN 01/09/10 Luis Villasenor MD [address] [place] [phone] PCP - General 01/09/10 documented as of this encounter
--- OUTSIDE RECORDS SUMMARY | 2024-12-12 13:36 | XMS_ITS | Encounter Summary ---
Author Organization [place] [address] Care Team Providers Care Local Superintendent Name Role Phone Luis Villasenor MD Unavailable [phone] Luis Villasenor MD Primary Care Provider Encounter Details Date Type Department Care Team (Late Contact Info) Description 11/11/2024 Orders Only SEP Sarah [address] [place] [phone] Amarilis Nolan, AUTOMATION AND CONTROLS SUPERVISOR [address] [place] [address] Flank pain (Primary Dx); Blood loss; [...] 3:44 PM EDT [facility] [place] Percent 8.3 % 11/14/2024 3:44 PM EDT [facility] Eos Percent 3.5 % 11/14/2024 3:44 PM EDT [facility] Baso Percent 0.6 % 11/14/2024 3:44 PM EDT [facility] Neut # 7.7(H) 1.6 - 6.1 x10(3)/mcL 11/14/2024 3:44 PM EDT [facility] Comment:Neutrophils equals s egs plus bands IMMGRAN# 0.1 0.0 - 0.1 x10(3)/[facility] 11/14/2024 3:44 PM EDT [facility] Comment:Automated count of m etamyelocytes, myelocytes and promyelocytes. An absolute IG <0.1 is reported as 0.0. Lymph # 1.0(L) 1.2 - 3.9 x10(3)/[facility] 11/14/2024 3:44 PM EDT [facility] [place] # 0.8 0.3 - 0.9 x10(3)/[facility] 11/14/2024 3:44 PM EDT [facility] Eos# 0.4 0.0 - 0.5 x10(3)/[facility] 11/14/2024 3:44 PM EDT [facility] Baso # 0.1 0.0 - 0.1 x10(3)/[facility] 11/14/2024 3:44 PM EDT [facility] Blood VENOUS BLOOD / Unknown Venipuncture / Unknown 11/14/2024 10:07 AM EDT 11/14/2024 10:07 AM EDT Amarilis Nolan AUTOMATION AND CONTROLS SUPERVISOR HEMATOLOGY ORDERABLES Fin al Result [facility] [address] [facility] , [place] [address] * (ABNORMAL) COMPREHENSIVE METABOLIC PANEL (11/14/2024 10:07 AM EDT) Sodium 133(L) 136 - 145 mmol/L 11/14/2024 4:07 PM EDT [facility] Potassium 4.5 3.5 - 5.0 mmol/L 11/14/2024 4:07 PM EDT [facility] Chloride 94(L) 98 - 107 mmol/L 11/14/2024 4:07 PM EDT [facility] Total CO2 29 22 - 29 mmol/L 11/14/2024 4:07 PM EDT [facility] Anion Gap 10 7 - 16 mmol/L 11/14/2024 4:07 PM EDT [facility] Calcium 9.2 8.8 - 10.4 mg/dL 11/14/2024 4:07 PM EDT [facility] Glucose Lvl 122(H) 70 - 99 mg/dL 11/14/2024 4:07 PM EDT [facility] BUN 15 8 - 23 mg/dL 11/14/2024 4:07 PM EDT [facility] Creatinine 1.38(H) 0.51 - 1.30 mg/dL 11/14/2024 4:07 PM EDT [facility] Albumin 3.4 3.2 - 4.6 gm/dL 11/14/2024 4:07 PM EDT [facility] Total Protein 7.8 6.4 - 8.3 gm/dL 11/14/2024 4:07 PM EDT [facility] Bili Total 0.6 0.2 - 1.3 mg/dL 11/14/2024 4:07 PM EDT [facility] ALT <5 <=41 U/L 11/14/2024 4:07 PM EDT [facility] AST 23 <=40 U/L 11/14/2024 4:07 PM EDT [facility] Alk Phos 465(H) 36 - 123 U/L 11/14/2024 4:07 PM EDT [facility] eGFR (CKD-EPIcr 2020) 39(L) >=60 mL/min/1.7 3 m2 11/14/2024 4:07 PM EDT [facility] Comment:Estimated GFR was ca lculated using the CKD-EPIcr (2020) equation refit without race. The equation is recommended by the National Kidney Foundation - [place] [employer] of Nephrology Task Force. Blood VENOUS BLOOD / Unknown Venipuncture / Unknown 11/14/2024 10:07 AM EDT 11/14/2024 10:07 AM EDT us Amarilis Nolan AUTOMATION AND CONTROLS SUPERVISOR CHEMISTRY ORDERABLES Kell orlando Result [facility] [address] [facility] , [address] [place], [place] [id number] documented in this encounter Visit Diagnoses Diagnosis Flank pain- Primary Abdominal pain, unspecified site Blood loss Hemorrhage, unspecified Dehydration documented in this encounter Additional Health Concerns Assessment Noted Time A fall risk assessment has been complete d for the patient 06/14/2024 9:03 AM EST documented as of this encounter Care Teams Local Superintendent Relationship Specialty Start Date End Date Luis Villasenor MD [address] [place] [phone] PCP - OBGYN 01/09/10 Luis Villasenor MD [address] [place] [address] PCP - General 01/09/10 documented as of this encounter
--- OUTSIDE RECORDS SUMMARY | 2024-12-12 13:36 | XMS_ITS | Encounter Summary ---
Author Organization [place] [address] Care Team Providers Care Management Trainee Name Role Phone Luis Villasenor MD Unavailable [phone] Luis Villasenor MD Primary Care Provider Encounter Details Date Type Department Care Team (Late Contact Info) Description 11/30/2024 Orders Only SEP Sarah [address] [place], [phone] Pau Gray, A [address] [place] [address] 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 due to chronic blood loss Social History Tobacco Use Types Packs/Day [...] 02/09/2020 8:59 AM Nghia Aguirre CMA * Is the person blind or does he/she have serious difficulty seeing even when wearing glasses? Answer Date of Assessment Author No 02/09/2020 8:59 AM EDNghia Paris CMA * Does this person have serious [...] sodium chloride 0.9% 120ml IVPB 20 mL 11/30/2024 documented in this encounter Plan of Treatment [...] deficiency anemia due to chronic blood loss 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 secondary to blood loss (chronic) documented in this encounter Discontinued Medications Medication Sig Discontinue Reason Start Date End Da te iron sucrose (VENOFER) 200 mg iron/10 mL IV SolutionIndications:Iro n deficiency anemia due to chronic blood loss Inject 10 mL into the vein once a week for 2 doses. iron sucrose (venofer) 200mg in sodium chloride 0.9% 120ml IVPB Reorder 11/28/2024 11/30/2024 documented as of this encounter Additional Health Concerns Assessment Noted Time A fall risk assessment has been complete d for the patient 06/14/2024 9:03 AM EST documented as of this encounter Care Teams Management Trainee Relationship Specialty Start Date End Date Luis Villasenor MD [address] [place] [phone] PCP - OBGYN 01/09/10 Luis Villasenor MD [address] [place] [phone] PCP - General 01/09/10 documented as of this encounter
--- OUTSIDE RECORDS SUMMARY | 2024-12-12 13:36 | XMS_ITS | Continuity of Care Document ---
Author Organization [facility] Address [address] [place] [address] Care Team Providers Care Airport Operations Officer Name Role Phone ADDY GONZALES General Surgeon CARLOS A COATS Primary Care Provider VERONIKA RIVER Seo Engineer Assessment No assessment recorded. Plan of Treatment Reminders Order Date Submit Date Provider Last Modified By Organization Details Last Modified Time Details Appointments OV EST 15 2024 10:30A M Tomy King MD Not available Not available Not available Lab carcinoem bryonic Ag, quant, serum or plasma 2024 025 [email or web address] [facility], [address] [place], [address], 11/08/2024 10:04:49 CMP, serum or plasma 2024 025 [facility], [address] [place], [address], 11/01/2024 15:54:32 CBC w/ diff 2024 025 [email or web address] [facility], [address] [place], [address], 11/08/2024 10:04:49 Referral None recorded. Procedures None recorded. Surgeries None recorded. Imaging None recorded. Medication Orders nystatin 100,000 unit/gram topical powder 2024 025 [id number], [address] [place], [address], 11/01/2024 13:56:59 Patient TargetsNo targets recorded. Patient InstructionsNo instructions recorded. Reason for Referral None Reported. Problems Name Problem SNOMED Code Status Onset Date Resolution Date Notes Provider Name and Address Organization Details Recorded Time Headache 57697924 Active 2024 [place], [place] - [facility] & [place] 5 10:27:12 Metastatic malignant neoplasm to liver 81652063 Active [address], [place], [address] , [place] - [facility] & [place] 3 14:27:25 Mass of colon 672162356 Active [address], [place], [address] , [place] - [facility] & [place] 3 14:27:30 Anemia 545249938 Active [address], [place], [address] , [place] [facility] [facility] & [place] 3 14:27:36 Nausea and vomiting 41115297 Active [address], [place], [address] , [place] - [facility] & [place] 3 14:27:46 Unintentional weight loss 352875635 Active [address], [place], [address] , [place] - [facility] & [place] 3 16:13:07 Night sweats 70317515 Active [address], [place], [address] , [place] - [facility] & [place] 3 16:13:12 Problem Notes Documentation Provider Name and Address Organization Details Recorded Time Oncology Patient Navigator : ONN met with pt at [facility] [place] with medical oncology. Pt states she is doing well at this time. Hospice consult was briefly discussed and pt declined at this time. ONN encouraged pt to reach out may any needs/concerns arise. [facility] [place] 11/01/2024 13:52:48 Procedures Surgical History Date Name Laterality Status Provider Name and Address Organization Details Recorded Time 04/29/20 23 Venipuncture completed Hanna Snider PA-C [address] [facility] [address], [place], [address], [facility] & [place] 04/27/2023 15:05:29 04/15/20 23 Venipuncture completed Stephanie Maravilla [facility] & [place] 04/15/2023 15:24:55 hysterectomy completed Laurel Samuels [facility] & [place] 03/11/2023 15:30:22 extraction of cataract completed Laurel Samuels [facility] & [place] 03/11/2023 15:30:36 excision of colon completed Loree Tadeo [facility] & [place] 04/21/2023 11:32:07 Imaging Results None recorded. Procedure Notes None recorded. Medical Equipment None Reported. Allergies Allergen ID Allergen Name Allergen Category Reaction Reaction Severity Criticality Documentation Date Start Date Code Code System Note Provider Name and Address Organization Details Recorded Time 40609 tetracycl ine medicatio n hives Not available high 02/19/2023 16722 RxNorm Brandy Macielpretty [facility] [place] 14:03:33 Medications Name Sig Start Date Stop [...] oral route as directed for 30 days. 11/30 completed Not Available Not Available Not Available prednisone 10 mg tablet take 3 tablets [...] MOUTH EVERY 72 HOURS FOR 3 DOSES 11/30 completed Not Available Not Available Not Available metoprolol succinate ER 50 mg tablet,exte nded release 24 hr TAKE 1 TABLET BY MOUTH NIGHTLY AT BEDTIME active Not Available Not Available No t Available hydrocodone 5 mg-acetamin ophen 325 mg tablet Take 1 tablet every 6 hours by oral route as needed. 11/30 completed Not Available Not Available Not Available Nystop 100,000 unit/gram topical powder APPLY TOPICALLY TO THE AFFECTED AEA(S) 2 TIMES A DAY NEEDED active Not Available [...] TAKE 1 TABLET BY MOUTH EVERY DAY 11/30 completed Not Available Not Available Not Available diphenoxyla te-atropine 2.5 mg-0.025 mg tablet [...] MOUTH EVERY 4 TO 6 HOURS NEEDED 11/30 completed Not Available Not Available Not Available [...] a day by oral route as needed. 11/30 completed Not Available Not Available Not Available hydrocodone 7.5 mg-acetamin ophen 325 mg tablet Take 1 tablet every 4-6 hours by oral route as needed. 11/30 completed Not Available Not Available Not Available mirtazapine 30 mg tablet TAKE 1 TABLET [...] TAKE 1 TABLET BY MOUTH EVERY DAY 11/30 completed Not Available Not Available Not Available furosemide 20 mg tablet TAKE 1 TABLET [...] 2 TIMES A DAY FOR 5 DAYS 11/30 completed Not Available Not Available Not Available amoxicillin 500 mg-potassiu m clavulanate 125 mg tablet TAKE ONE TABLET BY MOUTH THREE TIMES DAILY FOR SIX DAYS -- FINISH ALL MEDICINE -- 11/30 completed Not Available Not Available Not Available oxycodone 5 mg tablet TAKE 1 TABLET BY MOUTH EVERY 4 TO 6 HOURS NEEDED 11/30 completed Not Available Not Available Not Available bisacodyl 5 mg tablet Take 1 tablet twice a day by oral route. active Not Available Not Available No t Available enoxaparin 100 mg/mL subcutaneou s syringe INJECT 95 MG (0.95 ML) SUBCUTANE OUSLY EVERY TWELVE HOURS FOR 10 DAYS 11/30 completed Not Available Not Available Not Available Jantoven 1 mg tablet TAKE 1 TABLET BY MOUTH EVERY DAY OR DIRECTED 11/30 completed Not Available Not Available Not Available Jantoven 2 mg tablet TAKE 1 TABLET BY MOUTH EVERY DAY active Not Available Not Available No t Available Jantoven 5 mg tablet TAKE 1 TABLET BY MOUTH EVERY DAY 11/30 completed Not Available Not Available Not Available nitrofurant oin monohydrate /macrocryst als 100 [...] completed Not Available Not Available Not Available Calmoseptin e 0.44 %-20.6 % topical ointment Apply 1 applicati on 4 times a day by topical route as needed for 30 days. 2024 active Not Available Not Available Not Avai lable Triple Antibiotic 3.5 mg-400 unit-5,000 unit topical [...] blood by Pulse oximetry Heart rate Systolic And Diastolic Provider Name and Address Organization Details Last Updated DateTime 5 162.56 cm 33.5 kg/m2 86955.5 1 g 97.6 [degF] 98 % 98 % 75 /min 185/79 mm[Hg] [facility] [place] 13:16:39 Social History Question Answer Notes LastModified by Organizat ion Details LastModified Time Tobacco Smoking Status Never Smoker [facility] & [place] 02/19/2023 14:02:59 What Is Your Level Of Caffeine Consumption? None [email or web address] Information not available 02/19/2023 What Was The Date Of Your Most Recent Tobacco Screening? 11/23/2023 [email or web address] Information not available 11/23/2023 Has Tobacco Cessation Counseling Been Provided? No [email or web address] Information not available 07/13/2023 Sex: Unknown Functional Status Question Answer Note LastModified by Organizat ion Details LastModified Time Do you use any illicit or recreational drugs? No [email or web address] Information not available 02/19/2023 Do you or have you ever used any other forms of tobacco or nicotine? No [email or web address] Information not available 02/19/2023 What is your level of alcohol consumption? None [email or web address] Information not available 02/19/2023 Mental Status None recorded. Family History Nothing Reported. Medical History No medical history recorded. Gynecological HistoryNo gynecological history recorded. Obstetrics History GPAL:G 0 P 0 0 0 0 Immunizations Vaccine Type Date Status Note Provider Nam e and Address Organization Details Recorded Time pneumococcal polysaccharide PPV23 7 completed Stephanie Maravilla [facility] & [place] 12/21/2023 09:56:34 Past Encounters Encounter ID Performer Location Encounter Start Date Encounter Closed Date Diagnosis/Indication Diagnosis SNOMED-CT Code Diagnosis ICD10 Code Diagnosis Note [id number] Hanna Snider PA-C [facility] [address] [address] [place] [address] 11/01/2024 13:00:10 11/01/2024 13:35:08 Antineoplastic chemotherapy regimen 128195487 Z51.11 Week 1 5FU Leucovorin Vectibix on [...] 25, 2024. Malignant tumor of ascending colon 458948418 C18.2 CT scan of the abdomen and [...] 8.2 hematocrit 29.0. MCV 67.9. Platelet count 340283. Normal cell differenti al. Low serum folate [...] study published in September 2022 in the [place] Journal Medicine of combined Avastin therapy with [...] malignancy . Metastatic malignant neoplasm to liver 57884190 C78.7 CT scan of the abdomen and [...] any treatment for her malignancy . Nausea 974486170 R11.0 As needed Zofran and Phenergan prescribed [...] ons. Pain due t o neoplastic disease 4007451941 9102 G89.3 Abdominal pain has improved and pain is controlled with current pain medication s. Anemia 803681041 D64.9 Right-side d colon mass concerning for malignancy . Will assess for any signs of iron deficiency . Hemoglobin previously 8.0. Concern for blood loss from colon mass. Patient reports dark stools. Labs on August 10, 2024 with hemoglobin slightly low at 11.9. She is receiving infusional iron as needed. Adopted 338805960 Z62.89 8 Patient is adopted and discussed hereditary gene panel. Patient does have family history of her son having bladder cancer. [facility] hereditary panel sent Hypokalemia 63521481 E87 .6 Currently taking for potassium 20 mEq daily. Will follow up labs. 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 [...] reports depression has improved. Atopic conjunctivitis 23 4985551 H10.12 Conjunctiv itis due to Vectibix. This has improved. Iron defic iency anemia 53287474 D50.9 Receiving infusional iron as needed. Will continue to monitor. Insomnia 877562034 G47.0 0 Patient has had difficulty sleeping for most of her life. She has tried multiple medication s without relief. She is tried Mirtazapin e and lorazepam without improvemen t of insomnia. Discussed trying trazodone instead. Restless legs 17746033 G 25.81 Patient taking Requip for restless legs. Generalized rash 6498120 06 R21 Rash due to Vectibix. This has improved. Atrial fibrillation 4943 6004 I48.91 Patient has been diagnosed with congestive heart failure and atrial fibrillati on. She has been started on Coumadin. She is following with the Coumadin clinic at [facility]. Congestive heart failure 47316777 I50.9 Patient has been diagnosed with congestive heart failure. She has started lasix and is following with a cardiologi . Cachexia 900959210 R64 Patient has had decreased appetite and weight loss. She is drinking nutritiona l supplement s. Discussed appetite stimulant. Patient previously refused. She has started on Megace. She does not like the taste of Megace. Discussed Megace tablets instead of liquid but patient declines at this time. Will continue to monitor History of deep vein thrombosis 537488750 Z86.718 Patient developed right lower extremity pain [...] repeat venous duplex. Drug therapy finding 309 941440 Z79.01 She continues on Coumadin due to [...] Name 11/01/2024 1 [place] Vicky Roblero [id number] Vicky Roblero 11/01/2024 2 [employer] (MEDICARE SUPPLEMENT) Vicky Roblero [id number] Vicky Roblero Notes Date Note Type Note Provider Name and Address Organization Details Recorded Time 11/01/2024 text/html 79 yo F returns for evaluation of metastatic colon cancer. Patient recently [facility]. Patient reported epigastric pain [...] 8.2 hematocrit 29.0. MCV 67.9. Platelet count 300544. Normal cell differential. Low serum folate of [...] with metastatic colorectal cancer. Discussed chemotherapy with [place] based regimen with 5FU Leucovorin if [...] study published in September 2022 in the [place] [facility] of combined Avastin therapy with [...] to have if needed. Hanna Snider PA-C [address], [place], [address], [facility] [place] & [place] 11/01/2024 13:57:44 OBGyn Episode No OBEpisode recorded.
--- OUTSIDE RECORDS SUMMARY | 2024-12-12 13:36 | XMS_ITS | Encounter Summary ---
Author Organization [place] [address] Care Team Providers Care Registered Associate Name Role Phone Luis Villasenor MD Unavailable [phone] Luis Villasenor MD Primary Care Provider [phone] Reason for Visit * Reason Onset Date Comments Relaying Information 10/26/2024 Reporting n ew issues with pain. Encounter Details Date Type Department Care Team (Late st Contact Info) Description 10/26/[address] [facility] [place] [address] Luis Villasenor MD [employer] [facility] [place] [address] Relaying Information (Reporting new issues with [...] documented as of this encounter Care Teams Registered Associate Relationship Specialty Start Date End Date Luis Villasenor MD [address] [place] [phone] PCP - OBGYN 01/09/10 Luis Villasenor MD [address] [facility] [place] [phone] PCP - General 01/09/10 documented as of this encounter
--- OUTSIDE RECORDS SUMMARY | 2024-12-12 13:36 | XMS_ITS | Encounter Summary ---
Author Organization [place] [address] Care Team Providers Care Advanced Registered Nurse Name Role Phone Luis Villasenor MD Unavailable [phone] Luis Villasenor MD Primary Care Provider Encounter Details Date Type Department Care Team (Latest Contact Info) Description 10/28/2024 Results Follow-Up SEP Sarah [address] [place] [id number] Amarilis Nolan, EXECUTIVE DIRECTOR OF MARKETING [address] [place] [address] COMPREHENSIVE METABOLIC PANEL, URINE CULTURE (NO [...] documented as of this encounter Care Teams Advanced Registered Nurse Relationship Specialty Start Date End Date Luis Villasenor MD [address] [place] [phone] PCP - OBGYN 01/09/10 Luis Villasenor MD [address] [place] [phone] PCP - General 01/09/10 documented as of this encounter
--- OUTSIDE RECORDS SUMMARY | 2024-12-12 13:36 | XMS_ITS | Encounter Summary ---
Author Organization [place] [address] Care Team Providers Care Print Shop Manager Name Role Phone Luis Villasenor MD Unavailable [phone] Luis Villasenor MD Primary Care Provider Reason for Visit * Reason Onset Date Comments Follow Up 12/01/2024 Need diagnosis c ode on infusion order - ok to handwrite on order - please fax to [phone] Encounter Details Date Type Department Care Team (Late st Contact Info) Description 12/01/2024 Telephone SEP Sarah [facility] [address] Luis Villasenor MD [address] [facility] [place] [address] Follow Up (Need diagnosis code on infusion order - ok to handwrite on order - please fax to [phone]) Social History Tobacco Use Types Packs/Day Years [...] Telephone Encounter - Pau Gray RMA - 12/05/2024 3:59 PM EDT Printed and faxed * Telephone Encounter - Sury Hassan RMA - 12/01/2024 2:14 PM EDT Please advise * Telephone Encounter - Alexander AkilahMIKALA iyer - 12/01/2024 11:49 AM EDT Select the most appropriate reason for this telephone message: Follow Up Follow Up Who is Calling:[facility] (include which hospital and caller's name) What is the caller following up on (make sure to reference any prior documentation/encounter):Need diagnosis code on infusion order - ok to handwrite on order - please fax to [phone]. Further follow-up needed?:Yes Return Method of Communication:Phone call Additional Information:N/A Fax number [phone]. Thank you. documented in this encounter Plan of Treatment [...] documented as of this encounter Care Teams Print Shop Manager Relationship Specialty Start Date End Date Luis Villasenor MD [address] [place] [phone] PCP - OBGYN 01/09/10 Luis Villasenor MD [address] [place] [phone] PCP - General 01/09/10 documented as of this encounter
--- OUTSIDE RECORDS SUMMARY | 2024-12-12 13:36 | XMS_ITS | Encounter Summary ---
Author Organization [place] [address] Care Team Providers Care Air Pollution Engineer Name Role Phone Luis Villasenor MD Unavailable [phone] Luis Villasenor MD Primary Care Provider Reason for Visit * Reason Onset Date Comments Orders 09/30/2024 SN,verbal Encounter Details Date Type Department Care Team (Late Contact Info) Description 09/30/2024 Telephone SEP Sarah [facility] [place] [address] Luis Villasenor MD [facility] [place] [address] Orders (SN,verbal ) Social History Tobacco [...] name: Ivis) What Orders are being requested: Custodial Reason Orders are Needed (Diagnosis): increase frequency for more education Is a verbal order being requested: Yes If non-[facility], where should the order be [...] Redmond CMA Stay Tobacco Free Lifestyle No Garce Redmond CMA documented as of this encounter Visit Diagnoses Not on filedocumented in this encounter Additional Health Concerns Assessment Noted Time A fall risk assessment has been complete d for the patient 06/14/2024 9:03 AM EST documented as of this encounter Care Teams Air Pollution Engineer Relationship Specialty Start Date End Date Luis Villasenor MD [address] [place], [place] [address] PCP - OBGYN 01/09/10 Luis Villasenor MD [address] [place], [place] [phone] PCP - General 01/09/10 documented as of this encounter
--- OUTSIDE RECORDS SUMMARY | 2024-12-12 13:36 | XMS_ITS | Encounter Summary ---
Author Organization [place] [address] Care Team Providers Care Weld Technician Name Role Phone Luis Villasenor MD Unavailable [phone] Luis Villasenor MD Primary Care Provider Reason for Visit * Reason Onset Date Comments Orders 10/07/2024 VO for OT Encounter Details Date Type Department Care Team (Late Contact Info) Description 10/07/2024 Telephone SEP Sarah [facility] [place] [address] Luis Villasenor MD [facility] [facility] [place] [address] Orders (VO for OT) Social History [...] order being requested: Yes If non-[facility], where should the order be [...] documented as of this encounter Care Teams Weld Technician Relationship Specialty Start Date End Date Luis Villasenor MD [address] [place] [phone] PCP - OBGYN 01/09/10 Luis Villasenor MD [address] [place] [phone] PCP - General 01/09/10 documented as of this encounter
--- OUTSIDE RECORDS SUMMARY | 2024-12-12 13:36 | XMS_ITS | Encounter Summary ---
Author Organization [place] [address] Care Team Providers Care Hybrid Derivatives Trader Name Role Phone Luis Villasenor MD Unavailable [phone] Luis Villasenor MD Primary Care Provider Reason for Visit * Reason Onset Date Comments 911/Red Flag 09/19/2024 possible blood c lot Encounter Details Date Type Department Care Team (Late st Contact Info) Description 09/19/2024 Nurse Triage SEP Sarah [facility] [place] [address] Luis Villasenor MD [facility] [place] [address] Peripheral edema (Primary Dx) Social History [...] 124/78(2024 9:10 AM EDT) No Nyla, Grace, OILSEED MEAT PRESSER Maintain a healthy diet, exercise regularly and maintain an ideal body weight General No Grace Redmond CMA Stay Tobacco Free Lifestyle No Grace Redmnod CMA documented as of this encounter Visit Diagnoses Diagnosis Peripheral edema- Primary Edema documented in this encounter Additional Health Concerns Assessment Noted Time A fall risk assessment has been complete d for the patient 06/14/2024 9:03 AM EST documented as of this encounter Care Teams Hybrid Derivatives Trader Relationship Specialty Start Date End Date Luis Villasenor MD [address] [facility] [place] [address] PCP - OBGYN 01/09/10 Luis Villasenor MD [address] [facility] [place] [phone] PCP - General 01/09/10 documented as of this encounter
--- OUTSIDE RECORDS SUMMARY | 2024-12-12 13:36 | XMS_ITS | Encounter Summary ---
Author Organization [place] [address] Care Team Providers Care Rental Clerk Tool And Equipment Name Role Phone Luis Villasenor MD Unavailable [phone] Luis Villasenor MD Primary Care Provider Encounter Details Date Type Department Care Team (Late Contact Info) Description 12/05/2024 Orders Only SEP Sarah [address] [place], [phone] Pau Gray, A [address] [place] [address] 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 due to chronic blood [...] sodium chloride 0.9% 120ml IVPB 20 mL 12/05/2024 documented in this encounter Plan of Treatment [...] in sodium chloride 0.9% 120ml IVPB Reorder 11/30/2024 12/05/2024 documented as of this encounter Additional Health Concerns Assessment Noted Time A fall risk assessment has been complete d for the patient 06/14/2024 9:03 AM EST documented as of this encounter Care Teams Rental Clerk Tool And Equipment Relationship Specialty Start Date End Date Luis Villasenor MD [address] [place] [phone] PCP - OBGYN 01/09/10 Luis Villasenor MD [address] [place] [phone] PCP - General 01/09/10 documented as of this encounter
--- OUTSIDE RECORDS SUMMARY | 2024-12-12 13:37 | XMS_ITS | Data Portability ---
Author Organization [facility] ADMIN Address [address] [place] [id number] Care Team Providers Care Safety Investigator/Cause Analyst Name Role Phone ADDY GONZALES General Surgeon CARLOS A COATS Primary Care Provider VERONIKA RIVER Phytopathology Teacher [phone] Assessment No assessment recorded. Plan of Treatment Reminders Order Date Submit Date Provider Last Modified By Organization Details Last Modified Time Details Appointments OV EST 15 2024 10:30A Xavier King MD Not available Not available Not available Lab carcinoem bryonic Ag, quant, serum or plasma 2024 025 [email or web address] [facility], [address] [place], [address], 12/07/2024 08:57:02 CMP, serum or plasma 2024 025 [email or web address] [facility], [address] [place], [address], 11/30/2024 13:45:48 CBC w/ diff 2024 025 [email or web address] [facility], [address] [facility], [place], [address], 12/07/2024 08:57:02 carcinoem bryonic Ag, quant, serum or plasma 2024 025 [email or web address] [facility], [address] [place], [address], 11/08/2024 10:04:49 CMP, serum or plasma 2024 025 [facility], [address], [place], [address], 11/01/2024 15:54:32 CBC w/ diff [address] [facility], [address], [place], [address], 11/08/2024 10:04:49 culture, stool [address] [facility], [address], [place], [address], 09/09/2024 11:40:08 O&P (ova & parasites ), stool [address] [facility], [address] [facility], [place], [address], 09/09/2024 11:40:09 C diff screen, stool, reflex PCR [address] [facility], [address], [place], [address], 09/09/2024 11:40:09 CBC w/ auto diff 2024 025 [facility], [address], [place], [address], 09/02/2024 16:09:44 CMP, serum or plasma 2024 025 [facility], [address], [place], [address], 09/02/2024 14:45:24 CBC w/ auto diff 2024 025 [facility], [address], [place], [address], 08/25/2024 09:46:31 CMP, serum or plasma 2024 025 [facility], [address] [facility], [place], [address], 08/25/2024 09:39:00 carcinoem bryonic Ag, quant, serum or plasma 2024 025 [email or web address] [facility], [address] [place], [address], 09/05/2024 09:16:06 Referral radiation oncologis t referral 2024 025 [email or web address] Mary Valencia MD, [address] [facility], [place], [address], 09/07/2024 08:24:10 Procedures None recorded. Surgeries None recorded. Imaging CT, head + brain, w/o contrast 2024 025 [facility] (Centralized Scheduling), [address] [place], [address], 09/02/2024 09:16:16 Medication Orders nystatin 100,000 unit/gram topical powder 2024 025 [facility], [address] [place], [address], 11/01/2024 13:56:59 ondansetr on 8 mg disintegr ating tablet [address] [facility], [address] [place], [address], 09/02/2024 12:29:05 Pepcid 20 mg tablet 2024 025 [facility], [address] [place], [address], 11/01/2024 13:10:36 Patient TargetsNo targets recorded. Patient InstructionsNo instructions recorded. Reason for Referral Referring Physician: Hanna Snider, Hematology/Oncology, Encounter Date: 08/10/2024 Results Created Date Observation Date Name Description Value Unit Range Abnormal Flag Note LastModifiedBy Organization Detail LastModifiedTime 07/25/1907/25/2024 MAGNE SIUM magnesium 1.8 mg/dL 1.8-2. 4 Not Available [facility] ([facility]) [address] , [place], [address], 07/25/2024 10:51:25 07/25/19 25 07/25/2024 CBC AUTO W DIFF WBC 9.0 K/uL 4.0-10 .5 Not Available [facility] ([facility]) [address] , [place], [address], 07/25/2024 10:52:22 07/25/19 25 07/25/2024 CBC AUTO W DIFF RBC 4.3 M/mm3 4.2-6. 4 Not Available [facility] ([facility]) [address] , [place], [address], 07/25/2024 10:52:22 07/25/19 25 07/25/2024 CBC AUTO W DIFF HGB 12.6 gm/dL 12.5-1 6.0 Not Available [facility] ([facility]) [address] , [place], [address], 07/25/2024 10:52:22 07/25/19 25 07/25/2024 CBC AUTO W DIFF HCT 39.6 % 37.0-4 7.0 Not Available [facility] ([facility]) [address] , [place], [address], 07/25/2024 10:52:22 07/25/19 25 07/25/2024 CBC AUTO W DIFF MCV 92.7 fL 78-100 Not Available [facility] ([facility]) [address] , [place], [address], 07/25/2024 10:52:22 07/25/19 25 07/25/2024 CBC AUTO W DIFF MCH 29.5 pg 27-31 Not Available [facility] ([facility]) [address] , [place], [address], 07/25/2024 10:52:22 07/25/19 25 07/25/2024 CBC AUTO W DIFF MCHC 31.8 g/dL 32-36 low Not Available [facility] ([facility]) [address] , [place], [address], 07/25/2024 10:52:22 07/25/19 25 07/25/2024 CBC AUTO W DIFF RDW 16.8 % 11.5-1 4.0 high Not Available [facility] ([facility]) [address] , [place], [address], 07/25/2024 10:52:22 07/25/19 25 07/25/2024 CBC AUTO W DIFF platelet count 234 K/uL 150-45 0 Not Available [facility] ([facility]) [address] , [place], [address], 07/25/2024 10:52:22 07/25/19 25 07/25/2024 CBC AUTO W DIFF MPV 9.2 fL 6-9.5 Not Available [facility] ([facility]) [address] , [place], [address], 07/25/2024 10:52:22 07/25/19 25 07/25/2024 CBC AUTO W DIFF neutrophil% 70.3 % 43-65 high Not Available [facility] ([facility]) [address] [place], [address], 07/25/2024 10:52:22 07/25/19 25 07/25/2024 CBC AUTO W DIFF lymphocyte% 16.5 % 20.5-4 5.5 low Not Available [facility] ([facility]) [address] [place], [address], 07/25/2024 10:52:22 07/25/19 25 07/25/2024 CBC AUTO W DIFF monocyte% 7.0 % 5.5-11 .7 Not Available [facility] ([facility]) [address], [place], [address], 07/25/2024 10:52:22 07/25/19 25 07/25/2024 CBC AUTO W DIFF eosinophil% 5.3 % 0.9-2. 9 high Not Available [facility] ([facility]) [address] [facility], [place], [address], 07/25/2024 10:52:22 07/25/19 25 07/25/2024 CBC AUTO W DIFF basophil% 0.6 % 0.2-1. 0 Not Available [facility] ([facility]) [address] [facility], [place], [address], 07/25/2024 10:52:22 07/25/19 25 07/25/2024 CBC AUTO W DIFF immature granulocytes % 0.3 % 0.0-0. 8 Not Available [facility] ([facility]) [address] [place], [address], 07/25/2024 10:52:22 07/25/19 25 07/25/2024 CBC AUTO W DIFF nucleated red blood cells % 0.0 % Not Available [facility] ([facility]) [address] [place], [address], 07/25/2024 10:52:22 07/25/19 25 07/25/2024 CBC AUTO W DIFF neutrophil# 6.3 K/uL 2.2-4. 8 high Not Available [facility] ([facility]) [address] [place], [address], 07/25/2024 10:52:22 07/25/19 25 07/25/2024 CBC AUTO W DIFF lymphocyte# 1.5 cell/ mcL 1.3-2. 9 Not Available [facility] ([facility]) [address], [place], [address], 07/25/2024 10:52:22 07/25/19 25 07/25/2024 CBC AUTO W DIFF monocyte# 0.6 cell/ mcL 0.3-0. 8 Not Available [facility] ([facility]) [address], [place], [address], 07/25/2024 10:52:22 07/25/19 25 07/25/2024 CBC AUTO W DIFF eosinophil# 0.5 cell/ mcL 0-0.2 high Not Available [facility] ([facility]) [address], [place], [address], 07/25/2024 10:52:22 07/25/19 25 07/25/2024 CBC AUTO W DIFF basophil# 0.1 cell/ mcL 0.0-1. 0 Not Available [facility] ([facility]) [address], [place], [address], 07/25/2024 10:52:22 07/25/19 25 07/25/2024 CBC AUTO W DIFF immature gramulocytes # 0.03 K/uL Not Available [facility] ([facility]) [address] [facility], [place], [address], 07/25/2024 10:52:22 07/25/19 25 07/25/2024 CBC AUTO W DIFF nucleated red blood cells # 0.00 K/uL Not Available [facility] ([facility]) [address] [facility], [place], [address], 07/25/2024 10:52:22 07/25/19 25 07/25/2024 CBC AUTO W DIFF manual differential NO Not Available [facility] ([facility]) [address] [place], [address], 07/25/2024 10:52:22 07/25/19 25 07/25/2024 COMP METAB OLIC PANEL sodium 137 mmol/ L 136-14 5 Not Available [facility] ([facility]) [address] , [place], [address], 07/25/2024 10:58:53 07/25/19 25 07/25/2024 COMP METAB OLIC PANEL potassium 3.7 mmol/ L 3.6-5. 0 Not Available [facility] ([facility]) [address] , [place], [address], 07/25/2024 10:58:53 07/25/19 25 07/25/2024 COMP METAB OLIC PANEL chloride 100 mmol/ L 98-107 Not Available [facility] ([facility]) [address], [place], [address], 07/25/2024 10:58:53 07/25/19 25 07/25/2024 COMP METAB OLIC PANEL carbon dioxide 25.4 mmol/ L 21.0-3 2.0 Not Available [facility] ([facility]) [address] , [place], [address], 07/25/2024 10:58:53 07/25/19 25 07/25/2024 COMP METAB OLIC PANEL anion gap 15.3 Not Available [facility] ([facility]) [address] [place], [address], 07/25/2024 10:58:53 07/25/19 25 07/25/2024 COMP METAB OLIC PANEL glucose 169 mg/dL 70-120 high Not Available [facility] ([facility]) [address] [place], [address], 07/25/2024 10:58:53 07/25/19 25 07/25/2024 COMP METAB OLIC PANEL BUN 17 mg/dL 7-18 Not Available [facility] ([facility]) [address], [place], [address], 07/25/2024 10:58:53 07/25/19 25 07/25/2024 COMP METAB OLIC PANEL creatinine 0.9 mg/dL 0.6-1. 3 Not Available [facility] ([facility]) [address], [place], [address], 07/25/2024 10:58:53 07/25/19 25 07/25/2024 COMP METAB [...] albrecht ing kiney funct ion. Not Available [facility] ([facility]) [address] , [place], [address], 07/25/2024 10:58:53 07/25/19 25 07/25/2024 COMP METAB OLIC PANEL total protein 7.1 g/dL 6.4-8. 2 Not Available [facility] ([facility]) [address], [place], [address], 07/25/2024 10:58:53 07/25/19 25 07/25/2024 COMP METAB OLIC PANEL albumin 2.8 g/dL 3.4-5. 0 low Not Available [facility] ([facility]) [address] , [place], [address], 07/25/2024 10:58:53 07/25/19 25 07/25/2024 COMP METAB OLIC PANEL globulin 4.3 Not Available [facility] ([facility]) [address] , [place], [address], 07/25/2024 10:58:53 07/25/19 25 07/25/2024 COMP METAB OLIC PANEL alb/glob ratio 0.7 0.7-2 Not Available [facility] ([facility]) [address] , [place], [address], 07/25/2024 10:58:53 07/25/19 25 07/25/2024 COMP METAB OLIC PANEL calcium 9.0 mg/dL 8.5-10 .5 Not Available [facility] ([facility]) [address], [place], [address], 07/25/2024 10:58:53 07/25/19 25 07/25/2024 COMP METAB OLIC PANEL bilirubin total 0.60 mg/dL 0.10-1 .00 Not Available [facility] ([facility]) [address] [facility], [place], [address], 07/25/2024 10:58:53 07/25/19 25 07/25/2024 COMP METAB OLIC PANEL AST (SGOT) 33 U/L 0-37 Not Available [facility] ([facility]) [address], [place], [address], 07/25/2024 10:58:53 07/25/19 25 07/25/2024 COMP METAB OLIC PANEL ALT (SGPT) 20 U/L 0-65 Not Available [facility] ([facility]) [address], [place], [address], 07/25/2024 10:58:53 07/25/19 25 07/25/2024 COMP METAB OLIC PANEL alk phosphatase 224 U/L 46-116 high Not Available [facility] ([facility]) [address], [place], [address], 07/25/2024 10:58:53 07/25/19 25 07/25/2024 PT (PROT HROMB IN TIME) W INR prothrombin time 27.2 secon ds 9.3-11 .4 high Not Available [facility] ([facility]) [address] , [place], [address], 07/25/2024 11:01:05 07/25/19 25 07/25/2024 PT (PROT [...] Mecha nical Heart Valve s Not Available [facility] ([facility]) [address] , [place], [address], 07/25/2024 11:01:05 07/25/19 25 07/26/2024 CEA cea 111.0 NG/mL 0.0-4. 7 high Nonsm okers <3.9 Smoke rs <5.6 . Lois Diagn ostic s Elect lois milum inesc ence Immun oassa y (ECLI A) . Value s obtai lexi with diffe rent assay metho ds or kits canno t be used inter [facility] . Resul ts canno t be inter prete d as absol [place] evide nce of the prese nce or absen ce of [facility] . Perfo rmed at: - [facility] [address] [place] [address] Lab Direc tor: Tate staton PhD, Phone : [phone] Not Available [facility] ([facility]) [address] , [place], [address], 07/26/2024 08:13:00 08/11/19 25 08/10/2024 CBC AUTO W DIFF WBC 10.3 K/uL 4.0-10 .5 Not Available [facility] ([facility]) [address], [place], [address], 08/10/2024 10:33:28 08/11/19 25 08/10/2024 CBC AUTO W DIFF RBC 4.0 M/mm3 4.2-6. 4 low Not Available [facility] ([facility]) [address] , [place], [address], 08/10/2024 10:33:28 08/11/19 25 08/10/2024 CBC AUTO W DIFF HGB 11.9 gm/dL 12.5-1 6.0 low Not Available [facility] ([facility]) [address], [place], [address], 08/10/2024 10:33:28 08/11/19 25 08/10/2024 CBC AUTO W DIFF HCT 36.4 % 37.0-4 7.0 low Not Available [facility] ([facility]) [address], [place], [address], 08/10/2024 10:33:28 08/11/19 25 08/10/2024 CBC AUTO W DIFF MCV 91.7 fL 78-100 Not Available [facility] ([facility]) [address], [place], [address], 08/10/2024 10:33:28 08/11/19 25 08/10/2024 CBC AUTO W DIFF MCH 30.0 pg 27-31 Not Available [facility] ([facility]) [address] , [place], [address], 08/10/2024 10:33:28 08/11/19 25 08/10/2024 CBC AUTO W DIFF MCHC 32.7 g/dL 32-36 Not Available [facility] ([facility]) [address], [place], [address], 08/10/2024 10:33:28 08/11/19 25 08/10/2024 CBC AUTO W DIFF RDW 16.3 % 11.5-1 4.0 high Not Available [facility] ([facility]) [address], [place], [address], 08/10/2024 10:33:28 08/11/19 25 08/10/2024 CBC AUTO W DIFF platelet count 227 K/uL 150-45 0 Not Available [facility] ([facility]) [address], [place], [address], 08/10/2024 10:33:28 08/11/19 25 08/10/2024 CBC AUTO W DIFF MPV 9.6 fL 6-9.5 high Not Available [facility] ([facility]) [address] , [place], [address], 08/10/2024 10:33:28 08/11/19 25 08/10/2024 CBC AUTO W DIFF neutrophil% 71.2 % 43-65 high Not Available [facility] ([facility]) [address] , [place], [address], 08/10/2024 10:33:28 08/11/19 25 08/10/2024 CBC AUTO W DIFF lymphocyte% 12.6 % 20.5-4 5.5 low Not Available [facility] ([facility]) [address] , [place], [address], 08/10/2024 10:33:28 08/11/19 25 08/10/2024 CBC AUTO W DIFF monocyte% 6.6 % 5.5-11 .7 Not Available [facility] ([facility]) [address] , [place], [address], 08/10/2024 10:33:28 08/11/19 25 08/10/2024 CBC AUTO W DIFF eosinophil% 8.6 % 0.9-2. 9 high Not Available [facility] ([facility]) [address], [place], [address], 08/10/2024 10:33:28 08/11/19 25 08/10/2024 CBC AUTO W DIFF basophil% 0.7 % 0.2-1. 0 Not Available [facility] ([facility]) [address] [facility], [place], [address], 08/10/2024 10:33:28 08/11/19 25 08/10/2024 CBC AUTO W DIFF immature granulocytes % 0.3 % 0.0-0. 8 Not Available [facility] ([facility]) [address] [facility], [place], [address], 08/10/2024 10:33:28 08/11/19 25 08/10/2024 CBC AUTO W DIFF nucleated red blood cells % 0.0 % Not Available [facility] ([facility]) [address] [facility], [place], [address], 08/10/2024 10:33:28 08/11/19 25 08/10/2024 CBC AUTO W DIFF neutrophil# 7.3 K/uL 2.2-4. 8 high Not Available [facility] ([facility]) [address] [place], [address], 08/10/2024 10:33:28 08/11/19 25 08/10/2024 CBC AUTO W DIFF lymphocyte# 1.3 cell/ mcL 1.3-2. 9 Not Available [facility] ([facility]) [address] [place], [address], 08/10/2024 10:33:28 08/11/19 25 08/10/2024 CBC AUTO W DIFF monocyte# 0.7 cell/ mcL 0.3-0. 8 Not Available [facility] ([facility]) [address] [place], [address], 08/10/2024 10:33:28 08/11/19 25 08/10/2024 CBC AUTO W DIFF eosinophil# 0.9 cell/ mcL 0-0.2 high Not Available [facility] ([facility]) [address], [place], [address], 08/10/2024 10:33:28 08/11/19 25 08/10/2024 CBC AUTO W DIFF basophil# 0.1 cell/ mcL 0.0-1. 0 Not Available [facility] ([facility]) [address], [place], [address], 08/10/2024 10:33:28 08/11/19 25 08/10/2024 CBC AUTO W DIFF immature gramulocytes # 0.03 K/uL Not Available [facility] ([facility]) [address], [place], [address], 08/10/2024 10:33:28 08/11/19 25 08/10/2024 CBC AUTO W DIFF nucleated red blood cells # 0.00 K/uL Not Available [facility] ([facility]) [address], [place], [address], 08/10/2024 10:33:28 08/11/19 25 08/10/2024 CBC AUTO W DIFF manual differential NO Not Available [facility] ([facility]) [address], [place], [address], 08/10/2024 10:33:28 08/11/19 25 08/10/2024 COMP METAB OLIC PANEL sodium 140 mmol/ L 136-14 5 Not Available [facility] ([facility]) [address], [place], [address], 08/10/2024 10:56:34 08/11/19 25 08/10/2024 COMP METAB OLIC PANEL potassium 4.1 mmol/ L 3.6-5. 0 Not Available [facility] ([facility]) [address], [place], [address], 08/10/2024 10:56:34 08/11/19 25 08/10/2024 COMP METAB OLIC PANEL chloride 104 mmol/ L 98-107 Not Available [facility] ([facility]) [address] , [place], [address], 08/10/2024 10:56:34 08/11/19 25 08/10/2024 COMP METAB OLIC PANEL carbon dioxide 22.7 mmol/ L 21.0-3 2.0 Not Available [facility] ([facility]) [address], [place], [address], 08/10/2024 10:56:34 08/11/19 25 08/10/2024 COMP METAB OLIC PANEL anion gap 17.4 Not Available [facility] ([facility]) [address], [place], [address], 08/10/2024 10:56:34 08/11/19 25 08/10/2024 COMP METAB OLIC PANEL glucose 180 mg/dL 70-120 high Not Available [facility] ([facility]) [address], [place], [address], 08/10/2024 10:56:34 08/11/19 25 08/10/2024 COMP METAB OLIC PANEL BUN 13 mg/dL 7-18 Not Available [facility] ([facility]) [address] [facility], [place], [address], 08/10/2024 10:56:34 08/11/19 25 08/10/2024 COMP METAB OLIC PANEL creatinine 1.05 mg/dL 0.6-1. 3 Not Available [facility] ([facility]) [address] [place], [address], 08/10/2024 10:56:34 08/11/19 25 08/10/2024 COMP METAB [...] albrecht ing kiney funct ion. Not Available [facility] ([facility]) [address] [facility], [place], [address], 08/10/2024 10:56:34 08/11/19 25 08/10/2024 COMP METAB OLIC PANEL total protein 6.9 g/dL 6.4-8. 2 Not Available [facility] ([facility]) [address] [facility], [place], [address], 08/10/2024 10:56:34 08/11/19 25 08/10/2024 COMP METAB OLIC PANEL albumin 4.3 g/dL 3.4-5. 0 Not Available [facility] ([facility]) [address] [facility] Care, [place], [address], 08/10/2024 10:56:34 08/11/19 25 08/10/2024 COMP METAB OLIC PANEL globulin 2.6 Not Available [facility] ([facility]) [address] [facility], [place], [address], 08/10/2024 10:56:34 08/11/19 25 08/10/2024 COMP METAB OLIC PANEL alb/glob ratio 1.7 0.7-2 Not Available [facility] ([facility]) [address] [facility], [place], [address], 08/10/2024 10:56:34 08/11/19 25 08/10/2024 COMP METAB OLIC PANEL calcium 8.9 mg/dL 8.5-10 .5 Not Available [facility] ([facility]) [address] [facility], [place], [address], 08/10/2024 10:56:34 08/11/19 25 08/10/2024 COMP METAB OLIC PANEL bilirubin total 0.6 mg/dL 0.10-1 .00 Not Available [facility] ([facility]) [address], [place], [address], 08/10/2024 10:56:34 08/11/19 25 08/10/2024 COMP METAB OLIC PANEL AST (SGOT) 40 U/L 0-37 high Not Available [facility] ([facility]) [address], [place], [address], 08/10/2024 10:56:34 08/11/19 25 08/10/2024 COMP METAB OLIC PANEL ALT (SGPT) 23 U/L 0-65 Not Available [facility] ([facility]) [address], [place], [address], 08/10/2024 10:56:34 08/11/19 25 08/10/2024 COMP METAB OLIC PANEL alk phosphatase 234 U/L 46-116 high Not Available [facility] ([facility]) [address], [place], [address], 08/10/2024 10:56:34 08/11/19 25 08/10/2024 MAGNE SIUM magnesium 2.1 mg/dL 1.8-2. 4 Not Available [facility] ([facility]) [address] [facility], [place], [address], 08/10/2024 10:57:38 08/11/19 25 08/10/2024 PT (PROT HROMB IN TIME) W INR prothrombin time 36.2 secon ds 9.3-11 .4 high Not Available [facility] ([facility]) [address] [place], [address], 08/10/2024 10:58:45 08/11/19 25 08/10/2024 PT (PROT [...] Mecha nical Heart Valve s Not Available [facility] ([facility]) [address] , [place], [address], 08/10/2024 10:58:45 08/26/19 25 08/25/2024 COMP METAB OLIC PANEL sodium 137 mmol/ L 136-14 5 Not Available [facility] ([facility]) [address] , [place], [address], 08/25/2024 09:39:00 08/26/19 25 08/25/2024 COMP METAB OLIC PANEL potassium 4.1 mmol/ L 3.6-5. 0 Not Available [facility] ([facility]) [address] , [place], [address], 08/25/2024 09:39:00 08/26/19 25 08/25/2024 COMP METAB OLIC PANEL chloride 101 mmol/ L 98-107 Not Available [facility] ([facility]) [address] , [place], [address], 08/25/2024 09:39:00 08/26/19 25 08/25/2024 COMP METAB OLIC PANEL carbon dioxide 23.8 mmol/ L 21.0-3 2.0 Not Available [facility] ([facility]) [address] [place], [address], 08/25/2024 09:39:00 08/26/19 25 08/25/2024 COMP METAB OLIC PANEL anion gap 16.3 Not Available [facility] ([facility]) [address] [place], [address], 08/25/2024 09:39:00 08/26/19 25 08/25/2024 COMP METAB OLIC PANEL glucose 169 mg/dL 70-120 high Not Available [facility] ([facility]) [address] [facility], [place], [address], 08/25/2024 09:39:00 08/26/19 25 08/25/2024 COMP METAB OLIC PANEL BUN 17 mg/dL 7-18 Not Available [facility] ([facility]) [address] [facility], [place], [address], 08/25/2024 09:39:00 08/26/1908/25/2024 COMP METAB OLIC PANEL creatinine 1.5 mg/dL 0.6-1. 3 high Not Available [facility] ([facility]) [address] [facility], [place], [address], 08/25/2024 09:39:00 08/26/1908/25/2024 COMP METAB OLIC PANEL [...] albrecht ing kiney funct ion. Not Available [facility] ([facility]) [address] [facility], [place], [address], 08/25/2024 09:39:00 08/26/1908/25/2024 COMP METAB OLIC PANEL osmolality (calculated) 291 mOsm/ kg 275-30 1 OSMOL ALITY IS A CALCU LATIO N UTILI ZING THE SERUM /PLAS MA SODIU M, GLUCO SE AND UREA NITRO GEN (BUN) LEVEL S. FOR THE MOST ACCUR ATE RESUL T A MEASU RED SERUM OSMOL ALITY IS SUGGE STED. Not Available [facility] ([facility]) [address], [place], [address], 08/25/2024 09:39:00 08/26/19 25 08/25/2024 COMP METAB OLIC PANEL total protein 7.2 g/dL 6.4-8. 2 Not Available [facility] ([facility]) [address] , [place], [address], 08/25/2024 09:39:00 08/26/19 25 08/25/2024 COMP METAB OLIC PANEL albumin 2.9 g/dL 3.4-5. 0 low Not Available [facility] ([facility]) [address] , [place], [address], 08/25/2024 09:39:00 08/26/19 25 08/25/2024 COMP METAB OLIC PANEL globulin 4.3 Not Available [facility] ([facility]) [address] , [place], [address], 08/25/2024 09:39:00 08/26/19 25 08/25/2024 COMP METAB OLIC PANEL alb/glob ratio 0.7 0.7-2 Not Available [facility] ([facility]) [address] , [place], [address], 08/25/2024 09:39:00 08/26/19 25 08/25/2024 COMP METAB OLIC PANEL calcium 8.9 mg/dL 8.5-10 .5 Not Available [facility] ([facility]) [address] , [place], [address], 08/25/2024 09:39:00 08/26/19 25 08/25/2024 COMP METAB OLIC PANEL bilirubin total 0.50 mg/dL 0.10-1 .00 Not Available [facility] ([facility]) [address] , [place], [address], 08/25/2024 09:39:00 08/26/19 25 08/25/2024 COMP METAB OLIC PANEL AST (SGOT) 18 U/L 0-37 Not Available [facility] ([facility]) [address] , [place], [address], 08/25/2024 09:39:00 08/26/19 25 08/25/2024 COMP METAB OLIC PANEL ALT (SGPT) 16 U/L 0-65 Not Available [facility] ([facility]) [address] , [place], [address], 08/25/2024 09:39:00 08/26/19 25 08/25/2024 COMP METAB OLIC PANEL alk phosphatase 218 U/L 46-116 high Not Available [facility] ([facility]) [address] , [place], [address], 08/25/2024 09:39:00 08/26/19 25 08/25/2024 MAGNE SIUM magnesium 1.8 mg/dL 1.8-2. 4 Not Available [facility] ([facility]) [address], [place], [address], 08/25/2024 09:39:02 08/26/19 25 08/25/2024 CBC AUTO W DIFF WBC 3.5 K/uL 4.0-10 .5 low Not Available [facility] ([facility]) [address] , [place], [address], 08/25/2024 09:46:31 08/26/19 25 08/25/2024 CBC AUTO W DIFF RBC 3.9 M/mm3 4.2-6. 4 low Not Available [facility] ([facility]) [address] [place], [address], 08/25/2024 09:46:31 08/26/19 25 08/25/2024 CBC AUTO W DIFF HGB 11.4 gm/dL 12.5-1 6.0 low Not Available [facility] ([facility] [address] [facility], [address], 08/25/2024 09:46:31 08/26/19 25 08/25/2024 CBC AUTO W DIFF HCT 34.6 % 37.0-4 7.0 low Not Available [facility] ([facility]) [address], [place], [address], 08/25/2024 09:46:31 08/26/19 25 08/25/2024 CBC AUTO W DIFF MCV 88.7 fL 78-100 Not Available [facility] ([facility]) [address] , [place], [address], 08/25/2024 09:46:31 08/26/19 25 08/25/2024 CBC AUTO W DIFF MCH 29.2 pg 27-31 Not Available [facility] ([facility]) [address] , [place], [address], 08/25/2024 09:46:31 08/26/19 25 08/25/2024 CBC AUTO W DIFF MCHC 32.9 g/dL 32-36 Not Available [facility] ([facility]) [address] , [place], [address], 08/25/2024 09:46:31 08/26/19 25 08/25/2024 CBC AUTO W DIFF RDW 15.6 % 11.5-1 4.0 high Not Available [facility] ([facility]) [address] , [place], [address], 08/25/2024 09:46:31 08/26/19 25 08/25/2024 CBC AUTO W DIFF platelet count 295 K/uL 150-45 0 Not Available [facility] ([facility]) [address] , [place], [address], 08/25/2024 09:46:31 08/26/19 25 08/25/2024 CBC AUTO W DIFF MPV 9.0 fL 6-9.5 Not Available [facility] ([facility]) [address] , [place], [address], 08/25/2024 09:46:31 08/26/19 25 08/25/2024 CBC AUTO W DIFF neutrophil% 39.6 % 43-65 low Not Available [facility] ([facility]) [address], [place], [address], 08/25/2024 09:46:31 08/26/19 25 08/25/2024 CBC AUTO W DIFF lymphocyte% 41.8 % 20.5-4 5.5 Not Available [facility] ([facility]) [address], [place], [address], 08/25/2024 09:46:31 08/26/19 25 08/25/2024 CBC AUTO W DIFF monocyte% 13.4 % 5.5-11 .7 high Not Available [facility] ([facility]) [address], [place], [address], 08/25/2024 09:46:31 08/26/19 25 08/25/2024 CBC AUTO W DIFF eosinophil% 3.7 % 0.9-2. 9 high Not Available [facility] ([facility]) [address], [place], [address], 08/25/2024 09:46:31 08/26/19 25 08/25/2024 CBC AUTO W DIFF basophil% 0.9 % 0.2-1. 0 Not Available [facility] ([facility]) [address] [place], [address], 08/25/2024 09:46:31 08/26/19 25 08/25/2024 CBC AUTO W DIFF immature granulocytes % 0.6 % 0.0-0. 8 Not Available [facility] ([facility]) [address] [place], [address], 08/25/2024 09:46:31 03/27/20 25 08/25/2024 CBC AUTO W DIFF nucleated red blood cells % 0.0 % Not Available [facility] ([facility]) [address], [place], [address], 08/25/2024 09:46:31 08/26/19 25 08/25/2024 CBC AUTO W DIFF neutrophil# 1.4 K/uL 2.2-4. 8 low Not Available [facility] ([facility]) [address] [facility], [place], [address], 08/25/2024 09:46:31 08/26/19 25 08/25/2024 CBC AUTO W DIFF lymphocyte# 1.5 cell/ mcL 1.3-2. 9 Not Available [facility] ([facility]) [address] [facility], [place], [address], 08/25/2024 09:46:31 08/26/19 25 08/25/2024 CBC AUTO W DIFF monocyte# 0.5 cell/ mcL 0.3-0. 8 Not Available [facility] ([facility]) [address] [facility], [place], [address], 08/25/2024 09:46:31 08/26/19 25 08/25/2024 CBC AUTO W DIFF eosinophil# 0.1 cell/ mcL 0-0.2 Not Available [facility] ([facility]) [address] [facility], [place], [address], 08/25/2024 09:46:31 08/26/19 25 08/25/2024 CBC AUTO W DIFF basophil# 0.0 cell/ mcL 0.0-1. 0 Not Available [facility] ([facility]) [address] [place], [address], 08/25/2024 09:46:31 08/26/19 25 08/25/2024 CBC AUTO W DIFF immature gramulocytes # 0.02 K/uL Not Available [facility] ([facility]) [address] [facility], [place], [address], 08/25/2024 09:46:31 08/26/19 25 08/25/2024 CBC AUTO W DIFF nucleated red blood cells # 0.00 K/uL Not Available [facility] ([facility]) [address] , [place], [address], 08/25/2024 09:46:31 08/26/19 25 08/25/2024 CBC AUTO W DIFF manual differential NO Not Available [facility] ([facility]) [address], [place], [address], 08/25/2024 09:46:31 08/26/19 25 08/25/2024 PT (PROT HROMB IN TIME) W INR prothrombin time 77.1 secon ds 9.3-11 .4 critical high Not Available [facility] ([facility]) [address], [place], [address], 08/25/2024 10:02:40 08/26/19 25 08/25/2024 PT (PROT [...] Mecha nical Heart Valve s Not Available [facility] ([facility]) [address] [facility], [place], [address], 08/25/2024 10:02:40 09/03/19 25 09/02/2024 COMP METAB OLIC PANEL sodium 131 mmol/ L 136-14 5 low Not Available [facility] ([facility]) [address] , [place], [address], 09/02/2024 14:45:24 09/03/19 25 09/02/2024 COMP METAB OLIC PANEL potassium 4.0 mmol/ L 3.6-5. 0 Not Available [facility] ([facility]) [address] , [place], [address], 09/02/2024 14:45:24 09/03/19 25 09/02/2024 COMP METAB OLIC PANEL chloride 99 mmol/ L 98-107 Not Available [facility] ([facility]) [address], [place], [address], 09/02/2024 14:45:24 09/03/19 25 09/02/2024 COMP METAB OLIC PANEL carbon dioxide 18.6 mmol/ L 21.0-3 2.0 low Not Available [facility] ([facility]) [address] [place], [address], 09/02/2024 14:45:24 09/03/19 25 09/02/2024 COMP METAB OLIC PANEL anion gap 17.4 Not Available [facility] ([facility]) [address] [place], [address], 09/02/2024 14:45:24 09/03/19 25 09/02/2024 COMP METAB OLIC PANEL glucose 145 mg/dL 70-120 high Not Available [facility] ([facility]) [address] [place], [address], 09/02/2024 14:45:24 09/03/19 25 09/02/2024 COMP METAB OLIC PANEL BUN 36 mg/dL 7-18 high Not Available [facility] ([facility]) [address] [place], [address], 09/02/2024 14:45:24 09/03/19 25 09/02/2024 COMP METAB OLIC PANEL creatinine 1.5 mg/dL 0.6-1. 3 high Not Available [facility] ([facility]) [address] , [place], [address], 09/02/2024 14:45:24 09/03/19 25 09/02/2024 COMP METAB [...] albrecht ing kiney funct ion. Not Available [facility] ([facility]) [address] , [place], [address], 09/02/2024 14:45:24 09/03/19 25 09/02/2024 COMP METAB OLIC PANEL osmolality (calculated) 284 mOsm/ kg 275-30 1 OSMOL ALITY IS A CALCU LATIO N UTILI ZING THE SERUM /PLAS MA SODIU M, GLUCO SE AND UREA NITRO GEN (BUN) LEVEL S. FOR THE MOST ACCUR ATE RESUL T A MEASU RED SERUM OSMOL ALITY IS SUGGE STED. Not Available [facility] ([facility]) [address] , [place], [address], 09/02/2024 14:45:24 09/03/19 25 09/02/2024 COMP METAB OLIC PANEL total protein 5.9 g/dL 6.4-8. 2 low Not Available [facility] ([facility]) [address] , [place], [address], 09/02/2024 14:45:24 09/03/19 25 09/02/2024 COMP METAB OLIC PANEL albumin 2.1 g/dL 3.4-5. 0 low Not Available [facility] ([facility]) [address] , [place], [address], 09/02/2024 14:45:24 09/03/19 25 09/02/2024 COMP METAB OLIC PANEL globulin 3.8 Not Available [facility] ([facility]) [address] , [place], [address], 09/02/2024 14:45:24 09/03/19 25 09/02/2024 COMP METAB OLIC PANEL alb/glob ratio 0.6 0.7-2 low Not Available [facility] ([facility]) [address], [place], [address], 09/02/2024 14:45:24 09/03/19 25 09/02/2024 COMP METAB OLIC PANEL calcium 8.1 mg/dL 8.5-10 .5 low Not Available [facility] ([facility]) [address], [place], [address], 09/02/2024 14:45:24 09/03/19 25 09/02/2024 COMP METAB OLIC PANEL bilirubin total 1.10 mg/dL 0.10-1 .00 high Not Available [facility] ([facility]) [address] [facility], [place], [address], 09/02/2024 14:45:24 09/03/19 25 09/02/2024 COMP METAB OLIC PANEL AST (SGOT) 13 U/L 0-37 Not Available [facility] ([facility]) [address], [place], [address], 09/02/2024 14:45:24 09/03/19 25 09/02/2024 COMP METAB OLIC PANEL ALT (SGPT) 13 U/L 0-65 Not Available [facility] ([facility]) [address], [place], [address], 09/02/2024 14:45:24 09/03/19 25 09/02/2024 COMP METAB OLIC PANEL alk phosphatase 188 U/L 46-116 high Not Available [facility] ([facility]) [address], [place], [address], 09/02/2024 14:45:24 09/03/19 25 09/02/2024 CBC AUTO W DIFF WBC 1.2 K/uL 4.0-10 .5 critical low Not Available [facility] ([facility]) [address], [place], [address], 09/02/2024 16:09:44 09/03/19 25 09/02/2024 CBC AUTO W DIFF RBC 3.4 M/mm3 4.2-6. 4 low Not Available [facility] ([facility]) [address], [place], [address], 09/02/2024 16:09:44 09/03/19 25 09/02/2024 CBC AUTO W DIFF HGB 9.6 gm/dL 12.5-1 6.0 low Not Available [facility] ([facility]) [address] , [place], [address], 09/02/2024 16:09:44 09/03/19 25 09/02/2024 CBC AUTO W DIFF HCT 28.7 % 37.0-4 7.0 low Not Available [facility] ([facility]) [address], [place], [address], 09/02/2024 16:09:44 09/03/19 25 09/02/2024 CBC AUTO W DIFF MCV 85.4 fL 78-100 Not Available [facility] ([facility]) [address], [place], [address], 09/02/2024 16:09:44 09/03/19 25 09/02/2024 CBC AUTO W DIFF MCH 28.6 pg 27-31 Not Available [facility] ([facility]) [address], [place], [address], 09/02/2024 16:09:44 09/03/19 25 09/02/2024 CBC AUTO W DIFF MCHC 33.4 g/dL 32-36 Not Available [facility] ([facility]) [address] , [place], [address], 09/02/2024 16:09:44 09/03/19 25 09/02/2024 CBC AUTO W DIFF RDW 15.9 % 11.5-1 4.0 high Not Available [facility] ([facility]) [address] , [place], [address], 09/02/2024 16:09:44 09/03/19 25 09/02/2024 CBC AUTO W DIFF platelet count 213 K/uL 150-45 0 Not Available [facility] ([facility]) [address] , [place], [address], 09/02/2024 16:09:44 09/03/19 25 09/02/2024 CBC AUTO W DIFF MPV 9.6 fL 6-9.5 high Not Available [facility] ([facility]) [address] , [place], [address], 09/02/2024 16:09:44 09/03/19 25 09/02/2024 CBC AUTO W DIFF neutrophil% 57.7 % 43-65 Not Available [facility] ([facility]) [address] [place], [address], 09/02/2024 16:09:44 09/03/19 25 09/02/2024 CBC AUTO W DIFF lymphocyte% 25.4 % 20.5-4 5.5 Not Available [facility] ([facility]) [address] [place], [address], 09/02/2024 16:09:44 09/03/19 25 09/02/2024 CBC AUTO W DIFF monocyte% 15.3 % 5.5-11 .7 high Not Available [facility] ([facility]) [address] [place], [address], 09/02/2024 16:09:44 09/03/19 25 09/02/2024 CBC AUTO W DIFF eosinophil% 0.0 % 0.9-2. 9 low Not Available [facility] ([facility]) [address], [place], [address], 09/02/2024 16:09:44 09/03/19 25 09/02/2024 CBC AUTO W DIFF basophil% 0.8 % 0.2-1. 0 Not Available [facility] ([facility]) [address] [facility], [place], [address], 09/02/2024 16:09:44 09/03/19 25 09/02/2024 CBC AUTO W DIFF immature granulocytes % 0.8 % 0.0-0. 8 Not Available [facility] ([facility]) [address] [place], [address], 09/02/2024 16:09:44 09/03/19 25 09/02/2024 CBC AUTO W DIFF nucleated red blood cells % 0.0 % Not Available [facility] ([facility]) [address] [facility], [place], [address], 09/02/2024 16:09:44 09/03/19 25 09/02/2024 CBC AUTO W DIFF neutrophil# 0.7 K/uL 2.2-4. 8 low Not Available [facility] ([facility]) [address] [place], [address], 09/02/2024 16:09:44 09/03/19 25 09/02/2024 CBC AUTO W DIFF lymphocyte# 0.3 cell/ mcL 1.3-2. 9 low Not Available [facility] ([facility]) [address] [place], [address], 09/02/2024 16:09:44 09/03/19 25 09/02/2024 CBC AUTO W DIFF monocyte# 0.2 cell/ mcL 0.3-0. 8 low Not Available [facility] ([facility]) [address] , [place], [address], 09/02/2024 16:09:44 09/03/19 25 09/02/2024 CBC AUTO W DIFF eosinophil# 0.0 cell/ mcL 0-0.2 Not Available [facility] ([facility]) [address], [place], [address], 09/02/2024 16:09:44 09/03/19 25 09/02/2024 CBC AUTO W DIFF basophil# 0.0 cell/ mcL 0.0-1. 0 Not Available [facility] [facility] ([facility]) [address], [place], [address], 09/02/2024 16:09:44 09/03/19 25 09/02/2024 CBC AUTO W DIFF immature gramulocytes # 0.01 K/uL Not Available [facility] ([facility]) [address], [place], [address], 09/02/2024 16:09:44 09/03/19 25 09/02/2024 CBC AUTO W DIFF nucleated red blood cells # 0.00 K/uL Not Available [facility] ([facility]) [address] [facility], [place], [address], 09/02/2024 16:09:44 09/03/19 25 09/02/2024 CBC AUTO W DIFF manual differential YES Not Available [facility] ([facility]) [address] [place], [address], 09/02/2024 16:09:44 09/03/19 25 09/02/2024 CBC AUTO W DIFF segmented neutrophil 54 % 42-76 Not Available [facility] ([facility]) [address] [place], [address], 09/02/2024 16:09:44 09/03/19 25 09/02/2024 CBC AUTO W DIFF band neutrophil 8 % 0-8 Not Available [facility] ([facility]) [address] , [place], [address], 09/02/2024 16:09:44 09/03/19 25 09/02/2024 CBC AUTO W DIFF lymphocyte 16 % 15-41 Not Available [facility] ([facility]) [address], [place], [address], 09/02/2024 16:09:44 09/03/19 25 09/02/2024 CBC AUTO W DIFF monocyte 20 % 2-9 high Not Available [facility] ([facility]) [address], [place], [address], 09/02/2024 16:09:44 09/03/19 25 09/02/2024 CBC AUTO W DIFF eosinophil 2 % 0-3 Not Available [facility] ([facility]) [address], [place], [address], 09/02/2024 16:09:44 09/03/19 25 09/02/2024 CBC AUTO W DIFF platelet estimate ADEQUA TE adequa te Not Available [facility] ([facility]) [address], [place], [address], 09/02/2024 16:09:44 09/03/19 25 09/02/2024 CBC AUTO W DIFF platelet morphology NORMAL normal Not Available [facility] ([facility]) [address], [place], [address], 09/02/2024 16:09:44 09/03/19 25 09/02/2024 CBC AUTO W DIFF RBC morphology NORMAL normal Not Available [facility] ([facility]) [address], [place], [address], 09/02/2024 16:09:44 11/02/19 25 11/01/2024 CBC AUTO W DIFF WBC 6.7 K/uL 4.0-10 .5 Not Available [facility] ([facility]) [address], [place], [address], 11/01/2024 15:32:39 11/02/19 25 11/01/2024 CBC AUTO W DIFF RBC 3.2 M/mm3 4.2-6. 4 low Not Available [facility] ([facility]) [address], [place], [address], 11/01/2024 15:32:39 11/02/19 25 11/01/2024 CBC AUTO W DIFF HGB 9.0 gm/dL 12.5-1 6.0 low Not Available [facility] ([facility]) [address], [place], [address], 11/01/2024 15:32:39 11/02/19 25 11/01/2024 CBC AUTO W DIFF HCT 28.9 % 37.0-4 7.0 low Not Available [facility] ([facility]) [address], [place], [address], 11/01/2024 15:32:39 11/02/19 25 11/01/2024 CBC AUTO W DIFF MCV 90.9 fL 78-100 Not Available [facility] ([facility]) [address], [place], [address], 11/01/2024 15:32:39 11/02/19 25 11/01/2024 CBC AUTO W DIFF MCH 28.3 pg 27-31 Not Available [facility] ([facility]) [address], [place], [address], 11/01/2024 15:32:39 11/02/19 25 11/01/2024 CBC AUTO W DIFF MCHC 31.1 g/dL 32-36 low Not Available [facility] ([facility]) [address], [place], [address], 11/01/2024 15:32:39 11/02/19 25 11/01/2024 CBC AUTO W DIFF RDW 14.5 % 11.5-1 4.0 high Not Available [facility] ([facility]) [address], [place], [address], 11/01/2024 15:32:39 11/02/19 25 11/01/2024 CBC AUTO W DIFF platelet count 257 K/uL 150-45 0 Not Available [facility] ([facility]) [address] , [place], [address], 11/01/2024 15:32:39 11/02/19 25 11/01/2024 CBC AUTO W DIFF MPV 9.6 fL 6-9.5 high Not Available [facility] ([facility]) [address] , [place], [address], 11/01/2024 15:32:39 11/02/19 25 11/01/2024 CBC AUTO W DIFF neutrophil% 75.3 % 43-65 high Not Available [facility] ([facility]) [address] , [place], [address], 11/01/2024 15:32:39 11/02/19 25 11/01/2024 CBC AUTO W DIFF lymphocyte% 13.9 % 20.5-4 5.5 low Not Available [facility] ([facility]) [address] [place], [address], 11/01/2024 15:32:39 11/02/19 25 11/01/2024 CBC AUTO W DIFF monocyte% 7.5 % 5.5-11 .7 Not Available [facility] ([facility]) [address] [place], [address], 11/01/2024 15:32:39 11/02/19 25 11/01/2024 CBC AUTO W DIFF eosinophil% 2.2 % 0.9-2. 9 Not Available [facility] ([facility]) [address], [place], [address], 11/01/2024 15:32:39 11/02/19 25 11/01/2024 CBC AUTO W DIFF basophil% 0.4 % 0.2-1. 0 Not Available [facility] ([facility]) [address] [facility], [place], [address], 11/01/2024 15:32:39 11/02/19 25 11/01/2024 CBC AUTO W DIFF immature granulocytes % 0.7 % 0.0-0. 8 Not Available [facility] ([facility]) [address] [place], [address], 11/01/2024 15:32:39 11/02/19 25 11/01/2024 CBC AUTO W DIFF nucleated red blood cells % 0.0 % Not Available [facility] ([facility]) [address] [place], [address], 11/01/2024 15:32:39 11/02/19 25 11/01/2024 CBC AUTO W DIFF neutrophil# 5.0 K/uL 2.2-4. 8 high Not Available [facility] ([facility]) [address] [place], [address], 11/01/2024 15:32:39 11/02/19 25 11/01/2024 CBC AUTO W DIFF lymphocyte# 0.9 cell/ mcL 1.3-2. 9 low Not Available [facility] ([facility]) [address] [place], [address], 11/01/2024 15:32:39 11/02/19 25 11/01/2024 CBC AUTO W DIFF monocyte# 0.5 cell/ mcL 0.3-0. 8 Not Available [facility] ([facility]) [address] , [place], [address], 11/01/2024 15:32:39 11/02/19 25 11/01/2024 CBC AUTO W DIFF eosinophil# 0.2 cell/ mcL 0-0.2 Not Available [facility] ([facility]) [address] , [place], [address], 11/01/2024 15:32:39 11/02/19 25 11/01/2024 CBC AUTO W DIFF basophil# 0.0 cell/ mcL 0.0-1. 0 Not Available [facility] ([facility]) [address] , [place], [address], 11/01/2024 15:32:39 11/02/19 25 11/01/2024 CBC AUTO W DIFF immature gramulocytes # 0.05 K/uL Not Available [facility] ([facility]) [address] , [place], [address], 11/01/2024 15:32:39 11/02/19 25 11/01/2024 CBC AUTO W DIFF nucleated red blood cells # 0.00 K/uL Not Available [facility] ([facility]) [address] , [place], [address], 11/01/2024 15:32:39 11/02/19 25 11/01/2024 CBC AUTO W DIFF manual differential NO Not Available [facility] ([facility]) [address] , [place], [address], 11/01/2024 15:32:39 11/02/19 25 11/01/2024 COMP METAB OLIC PANEL sodium 139 mmol/ L 136-14 5 Not Available [facility] ([facility]) [address] [place], [address], 11/01/2024 15:54:32 11/02/19 25 11/01/2024 COMP METAB OLIC PANEL potassium 3.6 mmol/ L 3.6-5. 0 Not Available [facility] ([facility]) [address] , [place], [address], 11/01/2024 15:54:32 11/02/19 25 11/01/2024 COMP METAB OLIC PANEL chloride 103 mmol/ L 98-107 Not Available [facility] ([facility]) [address] , [place], [address], 11/01/2024 15:54:32 11/02/19 25 11/01/2024 COMP METAB OLIC PANEL carbon dioxide 27.8 mmol/ L 21.0-3 2.0 Not Available [facility] ([facility]) [address] , [place], [address], 11/01/2024 15:54:32 11/02/19 25 11/01/2024 COMP METAB OLIC PANEL anion gap 11.8 Not Available [facility] ([facility]) [address] , [place], [address], 11/01/2024 15:54:32 11/02/19 25 11/01/2024 COMP METAB OLIC PANEL glucose 112 mg/dL 70-120 Not Available [facility] ([facility]) [address] [place], [address], 11/01/2024 15:54:32 11/02/19 25 11/01/2024 COMP METAB OLIC PANEL BUN 9 mg/dL 7-18 Not Available [facility] ([facility]) [address] , [place], [address], 11/01/2024 15:54:32 11/02/19 25 11/01/2024 COMP METAB OLIC PANEL creatinine 1.1 mg/dL 0.6-1. 3 Not Available [facility] ([facility]) [address] , [place], [address], 11/01/2024 15:54:32 11/02/19 25 11/01/2024 COMP METAB [...] albrecht ing kiney funct ion. Not Available [facility] ([facility]) [address] , [place], [address], 11/01/2024 15:54:32 11/02/19 25 11/01/2024 COMP METAB OLIC PANEL osmolality (calculated) 289 mOsm/ kg 275-30 1 OSMOL ALITY IS A CALCU LATIO N UTILI ZING THE SERUM /PLAS MA SODIU M, GLUCO SE AND UREA NITRO GEN (BUN) LEVEL S. FOR THE MOST ACCUR ATE RESUL T A MEASU RED SERUM OSMOL ALITY IS SUGGE EMYD. Not Available [facility] ([facility]) [address] , [place], [address], 11/01/2024 15:54:32 11/02/19 25 11/01/2024 COMP METAB OLIC PANEL total protein 6.5 g/dL 6.4-8. 2 Not Available [facility] ([facility]) [address] , [place], [address], 11/01/2024 15:54:32 11/02/19 25 11/01/2024 COMP METAB OLIC PANEL albumin 2.2 g/dL 3.4-5. 0 low Not Available [facility] ([facility]) [address] , [place], [address], 11/01/2024 15:54:32 11/02/19 25 11/01/2024 COMP METAB OLIC PANEL globulin 4.3 Not Available [facility] ([facility]) [address] , [place], [address], 11/01/2024 15:54:32 11/02/19 25 11/01/2024 COMP METAB OLIC PANEL alb/glob ratio 0.5 0.7-2 low Not Available [facility] ([facility]) [address] , [place], [address], 11/01/2024 15:54:32 11/02/19 25 11/01/2024 COMP METAB OLIC PANEL calcium 8.5 mg/dL 8.5-10 .5 Not Available [facility] ([facility]) [address], [place], [address], 11/01/2024 15:54:32 11/02/19 25 11/01/2024 COMP METAB OLIC PANEL bilirubin total 0.40 mg/dL 0.10-1 .00 Not Available [facility] ([facility]) [address], [place], [address], 11/01/2024 15:54:32 11/02/19 25 11/01/2024 COMP METAB OLIC PANEL AST (SGOT) 33 U/L 0-37 Not Available [facility] ([facility]) [address] , [place], [address], 11/01/2024 15:54:32 11/02/19 25 11/01/2024 COMP METAB OLIC PANEL ALT (SGPT) 11 U/L 0-65 Not Available [facility] ([facility]) [address], [place], [address], 11/01/2024 15:54:32 11/02/19 25 11/01/2024 COMP METAB OLIC PANEL alk phosphatase 327 U/L 46-116 high Not Available [facility] ([facility]) [address] [facility], [address], 11/01/2024 15:54:32 11/02/1911/03/2024 CEA cea 86.4 NG/mL 0.0-4. 7 high Nonsm okers <3.9 Smoke rs <5.6 . Lois Diagn ostic s Elect lois milum inesc ence Immun oassa y (ECLI A) . Value s obtai lexi with diffe rent assay metho ds or kits canno t be used inter albrecht eably . Resul ts canno t be inter prete d as absol [place] evide nce of the prese nce or absen ce of [facility]. Perfo rmed at: [place] [address] Lab Direc tor: Tate staton PhD, Phone : [phone] Not Available [facility] ([facility]) [address] [facility], [place], [address], 11/03/2024 13:11:48 12/01/19 25 11/30/2024 CBC AUTO W DIFF WBC 9.0 K/uL 4.0-10 .5 Not Available [facility] ([facility]) [address] [facility], [place], [address], 11/30/2024 13:41:32 12/01/19 25 11/30/2024 CBC AUTO W DIFF RBC 3.7 M/mm3 4.2-6. 4 low Not Available [facility] ([facility]) [address] [facility], [place], [address], 11/30/2024 13:41:32 12/01/19 25 11/30/2024 CBC AUTO W DIFF HGB 10.2 gm/dL 12.5-1 6.0 low Not Available [facility] ([facility]) [address], [place], [address], 11/30/2024 13:41:32 12/01/19 25 11/30/2024 CBC AUTO W DIFF HCT 32.3 % 37.0-4 7.0 low Not Available [facility] ([facility]) [address], [place], [address], 11/30/2024 13:41:32 12/01/19 25 11/30/2024 CBC AUTO W DIFF MCV 86.8 fL 78-100 Not Available [facility] ([facility]) [address], [place], [address], 11/30/2024 13:41:32 12/01/19 25 11/30/2024 CBC AUTO W DIFF MCH 27.4 pg 27-31 Not Available [facility] ([facility]) [address], [place], [address], 11/30/2024 13:41:32 12/01/19 25 11/30/2024 CBC AUTO W DIFF MCHC 31.6 g/dL 32-36 low Not Available [facility] ([facility]) [address], [place], [address], 11/30/2024 13:41:32 12/01/19 25 11/30/2024 CBC AUTO W DIFF RDW 14.4 % 11.5-1 4.0 high Not Available [facility] ([facility]) [address] , [place], [address], 11/30/2024 13:41:32 12/01/19 25 11/30/2024 CBC AUTO W DIFF platelet count 260 K/uL 150-45 0 Not Available [facility] ([facility]) [address] , [place], [address], 11/30/2024 13:41:32 12/01/19 25 11/30/2024 CBC AUTO W DIFF MPV 9.6 fL 6-9.5 high Not Available [facility] ([facility]) [address] [place], [address], 11/30/2024 13:41:32 12/01/19 25 11/30/2024 CBC AUTO W DIFF neutrophil% 72.3 % 43-65 high Not Available [facility] ([facility]) [address], [place], [address], 11/30/2024 13:41:32 12/01/19 25 11/30/2024 CBC AUTO W DIFF lymphocyte% 14.6 % 20.5-4 5.5 low Not Available [facility] ([facility]) [address] [place], [address], 11/30/2024 13:41:32 12/01/19 25 11/30/2024 CBC AUTO W DIFF monocyte% 8.1 % 5.5-11 .7 Not Available [facility] ([facility]) [address] [place], [address], 11/30/2024 13:41:32 12/01/19 25 11/30/2024 CBC AUTO W DIFF eosinophil% 3.6 % 0.9-2. 9 high Not Available [facility] ([facility]) [address] [place], [address], 11/30/2024 13:41:32 12/01/19 25 11/30/2024 CBC AUTO W DIFF basophil% 0.7 % 0.2-1. 0 Not Available [facility] ([facility]) [address] [place], [address], 11/30/2024 13:41:32 12/01/19 25 11/30/2024 CBC AUTO W DIFF immature granulocytes % 0.7 % 0.0-0. 8 Not Available [facility] ([facility]) [address] [place], [address], 11/30/2024 13:41:32 12/01/19 25 11/30/2024 CBC AUTO W DIFF nucleated red blood cells % 0.0 % Not Available [facility] ([facility]) [address] [facility], [place], [address], 11/30/2024 13:41:32 12/01/19 25 11/30/2024 CBC AUTO W DIFF neutrophil# 6.5 K/uL 2.2-4. 8 high Not Available [facility] ([facility]) [address] [facility], [place], [address], 11/30/2024 13:41:32 12/01/19 25 11/30/2024 CBC AUTO W DIFF lymphocyte# 1.3 cell/ mcL 1.3-2. 9 Not Available [facility] ([facility]) [address] [facility], [place], [address], 11/30/2024 13:41:32 12/01/19 25 11/30/2024 CBC AUTO W DIFF monocyte# 0.7 cell/ mcL 0.3-0. 8 Not Available [facility] ([facility]) [address] [facility], [place], [address], 11/30/2024 13:41:32 12/01/19 25 11/30/2024 CBC AUTO W DIFF eosinophil# 0.3 cell/ mcL 0-0.2 high Not Available [facility] ([facility]) [address] [facility], [place], [address], 11/30/2024 13:41:32 12/01/19 25 11/30/2024 CBC AUTO W DIFF basophil# 0.1 cell/ mcL 0.0-1. 0 Not Available [facility] ([facility]) [address] [place], [address], 11/30/2024 13:41:32 12/01/19 25 11/30/2024 CBC AUTO W DIFF immature gramulocytes # 0.06 K/uL Not Available [facility] ([facility]) [address] [place], [address], 11/30/2024 13:41:32 12/01/19 25 11/30/2024 CBC AUTO W DIFF nucleated red blood cells # 0.00 K/uL Not Available [facility] ([facility]) [address], [place], [address], 11/30/2024 13:41:32 12/01/19 25 11/30/2024 CBC AUTO W DIFF manual differential NO Not Available [facility] ([facility]) [address], [place], [address], 11/30/2024 13:41:32 12/01/19 25 11/30/2024 COMP METAB OLIC PANEL sodium 129 mmol/ L 136-14 5 low Not Available [facility] ([facility]) [address], [place], [address], 11/30/2024 13:45:48 12/01/19 25 11/30/2024 COMP METAB OLIC PANEL potassium 4.8 mmol/ L 3.6-5. 0 Not Available [facility] ([facility]) [address] , [place], [address], 11/30/2024 13:45:48 12/01/19 25 11/30/2024 COMP METAB OLIC PANEL chloride 93 mmol/ L 98-107 low Not Available [facility] ([facility]) [address], [place], [address], 11/30/2024 13:45:48 12/01/19 25 11/30/2024 COMP METAB OLIC PANEL carbon dioxide 25.2 mmol/ L 21.0-3 2.0 Not Available [facility] ([facility]) [address] , [place], [address], 11/30/2024 13:45:48 12/01/19 25 11/30/2024 COMP METAB OLIC PANEL anion gap 15.6 Not Available [facility] ([facility]) [address], [place], [address], 11/30/2024 13:45:48 12/01/19 25 11/30/2024 COMP METAB OLIC PANEL glucose 110 mg/dL 70-120 Not Available [facility] ([facility]) [address] , [place], [address], 11/30/2024 13:45:48 12/01/19 25 11/30/2024 COMP METAB OLIC PANEL BUN 38 mg/dL 7-18 high Not Available [facility] ([facility]) [address], [place], [address], 11/30/2024 13:45:48 12/01/19 25 11/30/2024 COMP METAB OLIC PANEL creatinine 2.6 mg/dL 0.6-1. 3 high Not Available [facility] ([facility]) [address] , [place], [address], 11/30/2024 13:45:48 12/01/19 25 11/30/2024 COMP METAB OLIC PANEL glomerular filtration rate 18 mlper min 60- low GFR LIMIT ATION [...] albrecht ing kiney funct ion. Not Available [facility] ([facility]) [address] , [place], [address], 11/30/2024 13:45:48 12/01/19 25 11/30/2024 COMP METAB OLIC PANEL osmolality (calculated) 279 mOsm/ kg 275-30 1 OSMOL ALITY IS A CALCU LATIO N UTILI ZING THE SERUM /PLAS MA SODIU M, GLUCO SE AND UREA NITRO GEN (BUN) LEVEL S. FOR THE MOST ACCUR ATE RESUL T A MEASU RED SERUM OSMOL ALITY IS HAYDER PALM. Not Available [facility] ([facility]) [address], [place], [address], 11/30/2024 13:45:48 12/01/19 25 11/30/2024 COMP METAB OLIC PANEL total protein 8.4 g/dL 6.4-8. 2 high Not Available [facility] ([facility]) [address], [place], [address], 11/30/2024 13:45:48 12/01/19 25 11/30/2024 COMP METAB OLIC PANEL albumin 2.6 g/dL 3.4-5. 0 low Not Available [facility] ([facility]) [address], [place], [address], 11/30/2024 13:45:48 12/01/19 25 11/30/2024 COMP METAB OLIC PANEL globulin 5.8 Not Available [facility] ([facility]) [address] [facility], [place], [address], 11/30/2024 13:45:48 12/01/19 25 11/30/2024 COMP METAB OLIC PANEL alb/glob ratio 0.4 0.7-2 low Not Available [facility] ([facility]) [address], [place], [address], 11/30/2024 13:45:48 12/01/19 25 11/30/2024 COMP METAB OLIC PANEL calcium 9.5 mg/dL 8.5-10 .5 Not Available [facility] ([facility]) [address] [place], [address], 11/30/2024 13:45:48 12/01/19 25 11/30/2024 COMP METAB OLIC PANEL bilirubin total 0.80 mg/dL 0.10-1 .00 Not Available [facility] [place]) [address] [facility], [place], [address], 11/30/2024 13:45:48 12/01/19 25 11/30/2024 COMP METAB OLIC PANEL AST (SGOT) 111 U/L 0-37 high Not Available [facility] ([facility]) [address] [facility], [place], [address], 11/30/2024 13:45:48 12/01/19 25 11/30/2024 COMP METAB OLIC PANEL ALT (SGPT) 20 U/L 0-65 Not Available [facility] ([facility]) [address] [facility], [place], [address], 11/30/2024 13:45:48 12/01/19 25 11/30/2024 COMP METAB OLIC PANEL alk phosphatase 490 U/L 46-116 high Not Available [facility] ([facility]) [address] [facility], [place], [address], 11/30/2024 13:45:48 12/01/19 25 12/01/2024 CEA cea 387.0 NG/mL 0.0-4. 7 high Nonsm okers <3.9 Smoke rs <5.6 . Lois Diagn ostic s Elect lois milum inesc ence Immun oassa y (ECLI A) . Value s obtai lexi with diffe rent assay metho ds or kits canno t be used inter trena smart . Resul ts canno t be inter prete d as absol [place] evide nce of the prese nce or absen ce of [facility] . Perfo rmed at: - [facility] [address], [place] [id number] [facility] Direc tor: Tate staton PhD, Phone : [phone] Not Available [facility] ([facility]) [address], [place], [address], 12/01/2024 11:12:48 07/28/19 25 07/28/2024 CT ABD pel w/ (IV [facility] [address] [place] [address] Phone: Fax: Name: VICKY MCMAHAN Exam Date: : 948 Age 78 years Gender : F Access ion: [id number] 2023 Physic jesus: HANNA PARKER Facili ty: [facility] Facili ty HSV: Outpat ient Exam: CT ABD PEL W/ (IV ^ ORAL) CT ABDOME N PELVIS WITH IV CONTRA ST 2:46 PM [facility] INDICA TION: Female , 78 [...] 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 Legall y authen ticate d by VAMSHI Trevino [facility] 07-28 15:46: 13 CC'ed Logic: Orderi ng Provid er: DIGNA LUGO Attend ing Provid er: DIGNA LUGO Referr ing Provid er: DIGNA LUGO Admitt ing Provid er: DIGNA taylor[address] [place] [address] - Physical Therapy [address] [place] [address], [address], 07/29/2024 11:36:27 08/02/19 25 07/28/2024 CT, chest , w/ contr ast [facility] [address] [place] [address] Phone: Fax: Name: VICKY MCMAHAN Exam Date: : 948 Age 78 years Gender : F Access ion: [id number] 2023 Physic jesus: HANNA PARKER Facili ty: [facility] Facili ty HSV: Outpat ient Exam: CT [...] in 025 Thank you for referr ing VICKY MCMAHAN to [facility]. Legall y authen ticate d by AVIS ALBA IN 2024-07-28 15:46: 34 CC'ed Logic: Orderi ng Provid er: DIGNA LUGO Attend ing Provid er: DIGNA LUGO Referr ing Provid er: DIGNA LUGO Admitt ing Provid er: DIGNA LUGO [email or web address] [facility] - Physical Therapy [address], [place], [address], 08/01/2024 10:49:34 Result Notes None recorded. Problems Name Problem SNOMED Code Status Onset Date Resolution Date Notes Provider Name and Address Organization Details Recorded Time Headache 08266768 Active 2024 Christine Farfan [facility], [place] - [facility] [place] 5 10:27:12 Metastatic malignant neoplasm to liver 06971655 Active 2022 Ghassan Lieberman PA-C [address] , [place], [address] , [place] - [facility] [facility] [place] 3 14:27:25 Mass of colon 729822584 Active 2022 Ghassan Lieberman PA-C [address], [place], [address] , [place] - [facility] [facility] [place] 3 14:27:30 Anemia 309698488 Active 2022 Ghassan Lieberman PA-C [address] , [place], [address] , [place] - [facility] [facility] [place] 3 14:27:36 Nausea and vomiting 51275824 Active 2022 Ghassan Lieberman PA-C [address] , [place], [address] , [place] - [facility] [facility] [place] 3 14:27:46 Unintentional weight loss 627255240 Active 2022 Ghassan Lieberman PA-C [address], [place], [address] , [place] [facility] [facility] [place] 3 16:13:07 Night sweats 35430941 Active 2022 Ghassan Lieberman PA-C [address] [facility], [place], [address] , [facility] & [place] 3 16:13:12 Problem Notes Documentation Provider Name and Address Organization Details Recorded Time Oncology Patient Navigator : ONN met with pt at [facility]. Pt states she is doing well and inquired about her cancer care policy. ONN faxed paperwork to Ave on 07/26. Pt states that cancer policy states she has not received anything. Pt DIL gave me contact infomation. [phone]. Pt cancer policy number is [id number]. ONN will resend information to cancer policy. Pt denies any questions/concerns at this time. ONN encouraged pt to reach out may any needs/concerns arise. Christine yusuf, CURT Lai [facility] & [place] 08/10/2024 13:29:49 Oncology Patient Navigator : SW [...] reported that she would resubmit the documents. Brandy yusuf, CURT Ming NT [facility] [place] 08/15/2024 14:22:48 Oncology Patient Navigator : ONN met with pt in [facility] who states that she is feeling okay. [...] out may any needs/concerns arise. CURT Muller [facility] [place] 08/25/2024 14:45:18 Oncology Patient Navigator : Pt [...] may any needs/concerns arise. CURT Muller - [place] & [place] 09/06/2024 10:04:19 Oncology Patient Navigator : ONN contacted pt this afternoon to check in and see how she was doing after discharge from [facility]. Pt states she is doing much [...] very appreciative of all the staff of [facility]. ONN encouraged pt to reach out may any needs/concerns arise. CURT Muller [facility] - [place] & [place] 09/14/2024 15:13:43 Oncology Patient Navigator : ONN met with pt at [facility] with medical oncology. Pt states she is doing well at this time. Hospice consult was briefly discussed and pt declined at this time. ONN encouraged pt to reach out may any needs/concerns arise. CURT Muller [facility] - [place] & [place] 11/01/2024 13:52:48 Oncology Patient Navigator : ONN met with pt accompanied by daughter at [facility] with medical oncology. Pt is slurring her speech, seems forgetful, and nodding off during conversations. Pt daughter is a little concerned about pt but states overall she is doing well but has declined since last week. Pt denies any questions/concerns at this time. ONN encouraged pt to reach out may any needs/cooncerns arise. UCRT Muller - [facility] - [place] & [place] 11/30/2024 15:38:04 Procedures Surgical History Date Name Laterality Status Provider Name and Address Organization Details Recorded Time 04/29/20 23 Venipuncture completed Hanna Snider PA-C [address] [facility], [place], [address], [facility] [[email or web address] - NT - [place] & [place] 04/27/2023 15:05:29 04/15/20 23 Venipuncture completed Stephanie Maravilla [place] - [place] [facility] [place] 04/15/2023 15:24:55 hysterectomy completed Laurel Workman CURT - [facility] - [place] & [place] 03/11/2023 15:30:22 extraction of cataract completed Laurel Workcaio [place] - [facility] - [place] & [place] 03/11/2023 15:30:36 excision of colon completed Loree Tadeo [place] - [place] [facility] [place] 04/21/2023 11:32:07 Imaging Results None recorded. Procedure Notes None recorded. Medical Equipment None Reported. Allergies Allergen ID Allergen Name Allergen Category Reaction Reaction Severity Criticality Documentation Date Start Date Code Code System Note Provider Name and Address Organization Details Recorded Time 72869 tetracycl ine medicatio n hives Not available high 02/19/2023 11137 RxNorm Brandytyler Maciel [facility], [place] - [facility] [place] 3 14:03:33 Medications Name Sig [...] Pulse oximetry Heart rate Respiratory rate Systolic And Diastolic Provider Name and Address Organization Details Last Updated DateTime 5 162.56 cm 36 kg/m2 54520.4 g 97 [degF] 90 % 90 % 57 /min 18 /min 143/68 mm[Hg] [facility] [place] 5 10:00:38 Date Recorded Body height Body mass index (BMI) Body weight Body temperature Oxygen saturation Oxygen saturation in Arterial blood by Pulse oximetry Heart rate Respiratory rate Systolic And Diastolic Provider Name and Address Organization Details Last Updated DateTime 5 162.56 cm 35.2 kg/m2 88729.4 4 g 97.5 [degF] 98 % 98 % 20 /min 83 /min 140/68 mm[Hg] [facility] [place] 5 09:42:28 Date Recorded Body height Body temperature Oxygen saturation Oxygen saturation in Arterial blood by Pulse oximetry Heart rate Respiratory rate Systolic And Diastolic Provider Name and Address Organization Details Last Updated DateTime 5 162.56 cm 97.2 [degF] 95 % 95 % 141 /min 20 /min 137/86 mm[Hg] [facility] [place] 5 12:09:03 Date Recorded Body height Body mass index (BMI) Body weight Body temperature Oxygen saturation Oxygen saturation in Arterial blood by Pulse oximetry Heart rate Systolic And Diastolic Provider Name and Address Organization Details Last Updated DateTime 5 162.56 cm 33.5 kg/m2 37801.5 1 g 97.6 [degF] 98 % 98 % 75 /min 185/79 mm[Hg] [facility] [place] 5 13:16:39 Date Recorded Body height Body mass index (BMI) Body weight Body temperature Oxygen saturation Oxygen saturation in Arterial blood by Pulse oximetry Heart rate Systolic And Diastolic Provider Name and Address Organization Details Last Updated DateTime 5 162.56 cm 33.8 kg/m2 14632.7 g 96.8 [degF] 99 % 99 % 65 /min 93/62 mm[Hg] Stephanie Lai [facility] [place] 5 11:12:52 Social History Question Answer Notes LastModified by Organizat ion Details LastModified Time Tobacco Smoking Status Never Smoker CURT Johnston [facility] [place] 02/19/2023 14:02:59 What Is Your Level Of Caffeine Consumption? None [email or web address] Information not available 02/19/2023 What Was The Date Of Your Most Recent Tobacco Screening? 11/23/2023 [email or web address] Information not available 11/23/2023 Has Tobacco Cessation Counseling Been Provided? No [email or web address] Information not available 07/13/2023 Sex: Unknown Functional Status Question Answer Note LastModified by Organizat ion Details LastModified Time Do you use any illicit or recreational drugs? No [email or web address] Information not available 02/19/2023 Do you or have you ever used any other forms of tobacco or nicotine? No Information not available 02/19/2023 What is your level of alcohol consumption? None [email or web address] Information not available 02/19/2023 Mental Status None recorded. Family History Nothing Reported. Medical History No medical history recorded. Gynecological HistoryNo gynecological history recorded. Obstetrics History GPAL:G 0 P 0 0 0 0 Immunizations Vaccine Type Date Status Note Provider Nam e and Address Organization Details Recorded Time pneumococcal polysaccharide PPV23 7 completed CURT Matta [facility] [place] 12/21/2023 09:56:34 Past Encounters Encounter ID Performer Location Encounter Start Date Encounter Closed Date Diagnosis/Indication Diagnosis SNOMED-CT Code Diagnosis ICD10 Code Diagnosis Note [id number] Ghassan Lieberman PA-C [facility] [address] [facility] [address] [place] [address] 02/19/2023 13:50:39 02/19/2023 14:35:58 Metastatic malignant neoplasm to liver 15490212 C78.7 Mass of colon 829790698 R19.09 Anemia 804669136 D64.9 Nausea and vomiting 1691999 R11.2 Unintentio nal weight loss 294770283 R63.4 Night sweats 94602845 R6 1 [id number] Addy Gonzales MD [facility] [address] [place] [address] 03/10/2023 13:05:53 03/10/2023 14:02:07 Mass of colon 038202190 R19.09 Ascending colon. Patient has had ongoing [...] and possibilit y of ostomy. Liver mass 205881203 R16 .0 [id number] Tomy King MD [facility] [address] [place] [address] 03/11/2023 14:55:42 03/11/2023 16:34:54 Malignant tumor of ascending colon 889925889 C18.2 CT scan of the abdomen and [...] tissue sampling. Metastatic malignant neoplasm to liver 74112571 C78.7 CT scan of the abdomen and [...] colon cancer. Will follow-up tissue biopsy. Nausea 013818183 R11.0 As needed Zofran and Phenergan prescribed . Pain due t o neoplastic disease 4725229943 9102 G89.3 Right upper quadrant pain secondary to liver metastasis . Patient currently taking Tylenol. Discussed as needed oxycodone to limit Tylenol exposure. Anemia 527568916 D64.9 Right-side d colon mass concerning for malignancy . Will assess for any signs of iron deficiency . Most recent hemoglobin at 8.0. Concern for blood loss from colon mass. Patient reports dark stools. Adopted 591305376 Z62.89 8 Patient is adopted and discussed hereditary gene panel. Patient does have family history of her son having bladder cancer. [id number] Tomy King MD [facility] [address] [place] [address] 04/15/2023 14:08:30 04/15/2023 15:42:28 Malignant tumor of ascending colon 869769149 C18.2 CT scan of the abdomen and [...] 8.2 hematocrit 29.0. MCV 67.9. Platelet count 182383. Normal cell differenti al. Low serum folate [...] metastatic colorectal cancer. Discussed chemothera py with [place] based regimen with 5FU Leucovorin if KRAS wild type would also add Vectibix to therapy. Will follow-up. Patient returns on April 15, 2023. Will start chemothera py as soon as possible. Metastatic malignant neoplasm to liver 25975118 C78.7 CT scan of the abdomen and [...] Findings concerning for metastatic colon cancer. Nausea 116868261 R11.0 As needed Zofran and Phenergan prescribed . Pain due t o neoplastic disease 9189780355 9102 G89.3 Right upper quadrant pain secondary to liver metastasis . Patient currently taking Tylenol. Discussed as needed oxycodone to limit Tylenol exposure. Anemia 865460465 D64.9 Right-side d colon mass concerning for malignancy . Will assess for any signs of iron deficiency . Most recent hemoglobin at 8.0. Concern for blood loss from colon mass. Patient reports dark stools. Adopted 388396707 Z62.89 8 Patient is adopted and discussed hereditary gene panel. Patient does have family history of her son having bladder cancer. Will send [facility] hereditary panel. [id number] Addy Gonzales MD [facility] [address] [facility] [place] [address] 04/21/2023 11:07:18 04/21/2023 11:47:40 Malignant tumor of ascending colon 431061260 C18.2 Patient has follow-up with Oncology, is debating if she wishes any further treatment at this point. I have recommende d continuing lifting restrictio ns for another 2 weeks, then can resume activity as tolerated. Patient can follow-up with me if she has ongoing issues or questions. [id number] Hanna Snider PA-C [facility] [address] [place] [address] 04/29/2023 10:08:09 04/29/2023 10:08:41 Malignant tumor of ascending colon 337510700 C18.2 CT scan of the abdomen and [...] 8.2 hematocrit 29.0. MCV 67.9. Platelet count 249775. Normal cell differenti al. Low serum folate [...] metastatic colorectal cancer. Discussed chemothera py with [place] based regimen with 5FU Leucovorin if [...] angela portillo. Metastatic malignant neoplasm to liver 93940519 C78.7 CT scan of the abdomen and [...] Findings concerning for metastatic colon cancer. Nausea 594552716 R11.0 As needed Zofran and Phenergan prescribed . Pain due t o neoplastic disease 6120523070 9102 G89.3 Right upper quadrant pain secondary to liver metastasis . Patient currently taking Tylenol. Discussed as needed oxycodone to limit Tylenol exposure. Anemia 984390925 D64.9 Right-side d colon mass concerning for malignancy . Will assess for any signs of iron deficiency . Most recent hemoglobin at 8.0. Concern for blood loss from colon mass. Patient reports dark stools. Adopted 325757566 Z62.89 8 Patient is adopted and discussed hereditary gene panel. Patient does have family history of her son having bladder cancer. Will send [facility] hereditary panel. Antineopla stic chemotherapy regimen 801237197 Z51.11 Cycle 1 5FU Leucovorin Vectibix on April 29, 2023. Hypomagnesemia 913086266 E83.42 Patient returns on April 29, 2023. Magnesium level is 1.7 today. Will give 1 g magnesium IV. Hypokalemia 19750847 E87 .6 Patient returns on April 29, 2023. Potassium is low at 2.9. Will send prescripti on for potassium 20 mEq daily. Will follow-up labs again next week. Loss of appetite 3368144 6 R63.0 Patient has had nausea and decreased appetite since her cancer diagnosis. She can not tolerate her nutritiona l drinks. She does take Phenergan with relief. She continues to lose weight. Will send prescripti on for Megace. [id number] Hanna Snider PA-C [facility] [address] [place] [address] 05/04/2023 09:35:22 05/04/2023 09:45:11 Malignant tumor of ascending colon 115464256 C18.2 CT scan of the abdomen and [...] 8.2 hematocrit 29.0. MCV 67.9. Platelet count 010262. Normal cell differenti al. Low serum folate [...] metastatic colorectal cancer. Discussed chemothera py with [place] based regimen with 5FU Leucovorin if [...] has started on Megace. [facility]. Metastatic malignant neoplasm to liver 61857784 C78.7 CT scan of the abdomen and [...] Findings concerning for metastatic colon cancer. Nausea 153664186 R11.0 As needed Zofran and Phenergan prescribed . Pain due t o neoplastic disease 2364562744 9102 G89.3 Right upper quadrant pain secondary to liver metastasis . Patient currently taking Tylenol. Discussed as needed oxycodone to limit Tylenol exposure. Anemia 567993530 D64.9 Right-side d colon mass concerning for malignancy . Will assess for any signs of iron deficiency . Most recent hemoglobin at 8.0. Concern for blood loss from colon mass. Patient reports dark stools. Adopted 670699098 Z62.89 8 Patient is adopted and discussed hereditary gene panel. Patient does have family history of her son having bladder cancer. Will send [facility] hereditary panel. Antineopla stic chemotherapy regimen 574950721 Z51.11 Cycle 1 5FU Leucovorin Vectibix on April 29, 2023. Cycle 2 5FU Leucovorin Vectibix on May 04, 2023. Hypomagnesemia 919015799 E83.42 Patient returns on April 29, 2023. Magnesium level is 1.7 today. Will give 1 g magnesium IV. Hypokalemia 16763271 E87 .6 Patient returns on April 29, 2023. Potassium is low at 2.9. Will send prescripti on for potassium 20 mEq daily. Will follow-up labs again next week. Loss of appetite 7968143 6 R63.0 Patient has had nausea and decreased appetite since her cancer diagnosis. She can not tolerate her nutritiona l drinks. She does take Phenergan with relief. She continues to lose weight. Will send prescripti on for Megace. [id number] Hanna Snider PA-C [facility] [address] [place] [address] 05/11/2023 09:04:44 05/11/2023 13:02:16 Malignant tumor of ascending colon 816391882 C18.2 CT scan of the abdomen and [...] 8.2 hematocrit 29.0. MCV 67.9. Platelet count 355400. Normal cell differenti al. Low serum folate [...] metastatic colorectal cancer. Discussed chemothera py with [place] based regimen with 5FU Leucovorin if [...] new prescripti on. Will follow-up for angela oakley Metastatic malignant neoplasm to liver 96689424 C78.7 CT scan of the abdomen and [...] Findings concerning for metastatic colon cancer. Nausea 851202271 R11.0 As needed Zofran and Phenergan prescribed . Pain due t o neoplastic disease 5158193686 9102 G89.3 Right upper quadrant pain secondary to liver metastasis . Patient currently taking Tylenol. Discussed as needed oxycodone to limit Tylenol exposure. Anemia 041558767 D64.9 Right-side d colon mass concerning for malignancy . Will assess for any signs of iron deficiency . Most recent hemoglobin at 8.0. Concern for blood loss from colon mass. Patient reports dark stools. Adopted 790984777 Z62.89 8 Patient is adopted and discussed hereditary gene panel. Patient does have family history of her son having bladder cancer. Will send [facility] hereditary panel. Antineopla stic chemotherapy regimen 712004727 Z51.11 Cycle 1 5FU Leucovorin Vectibix on April 29, 2023. Cycle 2 5FU Leucovorin Vectibix on May 04, 2023. Cycle 3 5FU Leucovorin Vectibix on May 11, 2023. Hypomagnesemia 947869365 E83.42 Patient returns on April 29, 2023. Magnesium level is 1.7 today. Will give 1 g magnesium IV. Hypokalemia 84924736 E87 .6 Patient returns on April 29, 2023. Potassium is low at 2.9. Will send prescripti on for potassium 20 mEq daily. Will follow-up labs again next week. Loss of appetite 6916599 6 R63.0 Patient has had nausea and decreased appetite since her cancer diagnosis. She can not tolerate her nutritiona l drinks. She does take Phenergan with relief. She continues to lose weight. Will send prescripti on for Megace. Acute conjunctivitis 537 31922 H10.32 Patient returns on May 11, 2023. She has had erythema, conjuntiva inflammati on, discharged and matted left eye. She has been using warm compresses . Will send prescripti on for eye drops for conjunctiv itis. Diarrhea 72779192 R19.7 She has had diarrhea since night. She has tried Imodium and Pepto. Discussed taking Lomotil instead. [id number] Addy Gonzales MD [facility] [address] [facility] [place] [address] 05/07/2023 13:50:57 05/07/2023 15:14:30 Malignant tumor of ascending colon 612712870 C18.2 I have scheduled the patient for venous port placement. informed consent was obtained. Risks of the procedure including bleeding, infection, catheter complicati ons and damage to surroundin g structures were discussed [id number] Hanna Snider PA-C [facility] [address] [place] [address] 06/02/2023 09:27:10 06/02/2023 10:20:16 Malignant tumor of ascending colon 684615642 C18.2 CT scan of the abdomen and [...] 8.2 hematocrit 29.0. MCV 67.9. Platelet count 666909. Normal cell differenti al. Low serum folate [...] metastatic colorectal cancer. Discussed chemothera py with [place] based regimen with 5FU Leucovorin if [...] been using prescripti on eye drops with improvemen t. Discussed likely secondary to chemothera py and following up with optometris t. Will follow up labs today. Metastatic malignant neoplasm to liver 47545783 C78.7 CT scan of the abdomen and [...] Findings concerning for metastatic colon cancer. Nausea 393910587 R11.0 As needed Zofran and Phenergan prescribed . Pain due t o neoplastic disease 6922691094 9102 G89.3 Right upper quadrant pain secondary to liver metastasis . Patient currently taking Tylenol. Discussed as needed oxycodone to limit Tylenol exposure. Anemia 782998038 D64.9 Right-side d colon mass concerning for malignancy . Will assess for any signs of iron deficiency . Most recent hemoglobin at 8.0. Concern for blood loss from colon mass. Patient reports dark stools. Adopted 871163918 Z62.89 8 Patient is adopted and discussed hereditary gene panel. Patient does have family history of her son having bladder cancer. Will send [facility] hereditary panel. Antineopla stic chemotherapy regimen 144159048 Z51.11 Cycle 1 5FU Leucovorin Vectibix on April 29, 2023. Cycle 2 5FU Leucovorin Vectibix on May 04, 2023. Cycle 3 5FU Leucovorin Vectibix on May 11, 2023. Hypomagnesemia 759747339 E83.42 Patient returns on April 29, 2023. Magnesium level is 1.7 today. Will give 1 g magnesium IV. Hypokalemia 91979318 E87 .6 Patient returns on April 29, 2023. Potassium is low at 2.9. Will send prescripti on for potassium 20 mEq daily. Will follow-up labs again next week. Loss of appetite 1119464 6 R63.0 Patient has had nausea and decreased appetite since her cancer diagnosis. She can not tolerate her nutritiona l drinks. She does take Phenergan with relief. She continues to lose weight. Will send prescripti on for Megace. Acute conjunctivitis 537 75863 H10.32 Patient returns on May 11, 2023. She has had erythema, conjuntiva inflammati on, discharged and matted left eye. She has been using warm compresses . Will send prescripti on for eye drops for conjunctiv itis. Diarrhea 24610846 R19.7 Diarrhea has resolved. Patient with recent C diff Deep venou s thrombosis 881441311 I82.409 Patient developed right lower extremity pain and edema. Venous duplex on May 28, 2023 with evidence of deep vein thrombosis . Started on Eliquis 5 mg 1 tab p.o. b.i.d.. Did not start with Eliquis starter pack due to recent bleeding. Patient had a DVT and a PE in 1990 after her hysterecto my. Will order hypercoagu lable panel today. Anxiety 81679728 F41.9 Patient has had increased anxiety. She is tearful and crying during her visit today due to all of her health problems. She does not want to take an antidepres melina at this time. Discussed low-dose Ativan. Muscle weakness 66208268 M62.81 Patient is feeling weak and is requesting a lift chair. Will see if insurance will cover. Discussed home health but patient declines at this time. [id number] Tomy King MD [facility] [address] [facility] [address] [place] [address] 06/08/2023 09:23:07 06/08/2023 11:39:14 Malignant tumor of ascending colon 253411008 C18.2 CT scan of the abdomen and [...] 8.2 hematocrit 29.0. MCV 67.9. Platelet count 226795. Normal cell differenti al. Low serum folate [...] labs today. Metastatic malignant neoplasm to liver 67763861 C78.7 CT scan of the abdomen and [...] Findings concerning for metastatic colon cancer. Nausea 475532944 R11.0 As needed Zofran and Phenergan prescribed . Pain due t o neoplastic disease [id number] 9102 G89.3 Right upper quadrant pain secondary to liver metastasis . Patient currently taking Tylenol. Discussed as needed oxycodone to limit Tylenol exposure. Anemia 835312491 D64.9 Right-side d colon mass concerning for malignancy . Will assess for any signs of iron deficiency . Most recent hemoglobin at 8.0. Concern for blood loss from colon mass. Patient reports dark stools. Adopted [id number] Z62.89 8 Patient is adopted and discussed hereditary gene panel. Patient does have family history of her son having bladder cancer. Will send [facility] hereditary panel. Antineopla stic chemotherapy regimen 614011051 Z51.11 Week 1 5FU Leucovorin Vectibix on [...] return for cycle 2 day 1 Hypomagnesemia 042201488 E83.42 Patient returns on April 29, 2023. Magnesium level is 1.7 today. Will give 1 g magnesium IV. Hypokalemia 41867759 E87 .6 Patient returns on April 29, 2023. Potassium is low at 2.9. Will send prescripti on for potassium 20 mEq daily. Will follow-up labs again next week. Loss of appetite 2265724 6 R63.0 Patient has had nausea and decreased appetite since her cancer diagnosis. She can not tolerate her nutritiona l drinks. She does take Phenergan with relief. She continues to lose weight. Will send prescripti on for Megace. Acute conjunctivitis 537 88037 H10.32 Patient returns on May 11, 2023. She has had erythema, conjuntiva inflammati on, discharged and matted left eye. She has been using warm compresses . Will send prescripti on for eye drops for conjunctiv itis.Will send in repeat prescripti on for eye drops. Diarrhea 80803209 R19.7 Diarrhea has resolved. Patient with recent C diff Deep venou s thrombosis 389363614 I82.409 Patient developed right lower extremity pain and edema.Veno us duplex on May 28, 2023 with evidence of deep vein thrombosis . Started on Eliquis 5 mg 1 tab p.o. b.i.d.. Did not start with Eliquis starter pack due to recent bleeding. Patient had a DVT and a PE in 1990 after her hysterecto my. Anxiety 63508696 F41.9 Patient has had increased anxiety. She is tearful and crying during her visit today due to all of her health problems. She does not want to take an antidepres melina at this time. Discussed low-dose Ativan. Improvemen t in mood overall on visit from June 08, 2023. [id number] Addy Gonzales MD [facility] [address] [facility] [place] [address] 06/05/2023 10:23:30 06/05/2023 11:32:28 Malignant tumor of ascending colon 112880867 C18.2 Needs port placed, cannot do this [...] can save her the long drive in. [id number] Tomy King MD [facility] [address] [facility] [address] [place] [address] 06/22/2023 10:06:43 06/22/2023 12:44:59 Malignant tumor of ascending colon 750069417 C18.2 CT scan of the abdomen and [...] 8.2 hematocrit 29.0. MCV 67.9. Platelet count 313855. Normal cell differenti al. Low serum folate [...] next month. Metastatic malignant neoplasm to liver 78237572 C78.7 CT scan of the abdomen and [...] Findings concerning for metastatic colon cancer. Nausea 996992435 R11.0 As needed Zofran and Phenergan prescribed . Pain due t o neoplastic disease 2617779341 9102 G89.3 Right upper quadrant pain secondary to liver metastasis . Patient currently taking Tylenol. Discussed as needed oxycodone to limit Tylenol exposure. Anemia 941077317 D64.9 Right-side d colon mass concerning for malignancy . Will assess for any signs of iron deficiency . Most recent hemoglobin at 8.0. Concern for blood loss from colon mass. Patient reports dark stools. Adopted 112402435 Z62.89 8 Patient is adopted and discussed hereditary gene panel. Patient does have family history of her son having bladder cancer. Will send [facility] hereditary panel. Antineopla stic chemotherapy regimen 638059130 Z51.11 Week 1 5FU Leucovorin Vectibix on [...] and Vectibix on July 06, 2023. Hypokalemia 67215684 E87 .6 Patient returns on April 29, 2023. Potassium is low at 2.9. Will send prescripti on for potassium 20 mEq daily. Will follow-up labs again next week. Loss of appetite 6884920 6 R63.0 Patient has had nausea and decreased appetite since her cancer diagnosis. She can not tolerate her nutritiona l drinks. She does take Phenergan with relief. She continues to lose weight. Will send prescripti on for Megace. Acute conjunctivitis 537 39372 H10.32 Patient returns on May 11, 2023. She has had erythema, conjuntiva inflammati on, discharged and matted left eye. She has been using warm compresses . Will send prescripti on for eye drops for conjunctiv itis.Will send in repeat prescripti on for eye drops. Diarrhea 16461641 R19.7 Diarrhea has resolved. Patient with recent C diff Deep venou s thrombosis 278769224 I82.409 Patient developed right lower extremity pain and edema.Veno us duplex on May 28, 2023 with evidence of deep vein thrombosis . Started on Eliquis 5 mg 1 tab p.o. b.i.d.. Did not start with Eliquis starter pack due to recent bleeding. Patient had a DVT and a PE in 1990 after her hysterecto my. Anxiety 92234057 F41.9 Patient has had increased anxiety. She is tearful and crying during her visit today due to all of her health problems. She does not want to take an antidepres melina at this time. Discussed low-dose Ativan. Improvemen t in mood overall on visit from June 08, 2023. [id number] Tomy King MD [facility] [address] [facility] [address] [place] [address] 07/13/2023 09:25:11 07/13/2023 10:53:59 Malignant tumor of ascending colon 784682598 C18.2 CT scan of the abdomen and [...] 8.2 hematocrit 29.0. MCV 67.9. Platelet count 833098. Normal cell differenti al. Low serum folate [...] for now. Metastatic malignant neoplasm to liver 25433119 C78.7 CT scan of the abdomen and [...] Findings concerning for metastatic colon cancer. Nausea 325856768 R11.0 As needed Zofran and Phenergan prescribed . Pain due t o neoplastic disease 8074350347 9102 G89.3 Right upper quadrant pain secondary to liver metastasis . Patient currently taking Tylenol. Discussed as needed oxycodone to limit Tylenol exposure. Anemia 009812693 D64.9 Right-side d colon mass concerning for malignancy . Will assess for any signs of iron deficiency . Most recent hemoglobin at 8.0. Concern for blood loss from colon mass. Patient reports dark stools. Adopted 028702569 Z62.89 8 Patient is adopted and discussed hereditary gene panel. Patient does have family history of her son having bladder cancer. Will send [facility] hereditary panel. Antineopla stic chemotherapy regimen 747552723 Z51.11 Week 1 5FU Leucovorin Vectibix on April 29, 2023.Week 2 5FU Leucovorin Vectibix on May 04, 2023.Week 3 5FU Leucovorin Vectibix on May 11, 2023.Week 4 5FU Leucovorin and Vectibix on June 08, 2023.Day 29 of 5FU Leucovorin and Vectibix on June 22, 2023. Cycle 2 day 1 of 5FU Leucovorin and Vectibix on July 13, 2023. Hypokalemia 56315946 E87 .6 Patient returns on April 29, 2023. Potassium is low at 2.9. Will send prescripti on for potassium 20 mEq daily. Will follow-up labs again next week. Loss of appetite 1038877 6 R63.0 Patient has had nausea and decreased appetite since her cancer diagnosis. She can not tolerate her nutritiona l drinks. She does take Phenergan with relief. She continues to lose weight. Will send prescripti on for Megace. Acute conjunctivitis 537 60081 H10.32 Patient returns on May 11, 2023. She has had erythema, conjuntiva inflammati on, discharged and matted left eye. She has been using warm compresses . Will send prescripti on for eye drops for conjunctiv itis.Will send in repeat prescripti on for eye drops. Diarrhea 91631959 R19.7 Diarrhea has resolved. Patient with recent C diff Deep venou s thrombosis 297393020 I82.411 Patient developed right lower extremity pain and edema.Veno us duplex on May 28, 2023 with evidence of deep vein thrombosis . Started on Eliquis 5 mg 1 tab p.o. b.i.d.. Did not start with Eliquis starter pack due to recent bleeding. Patient had a DVT and a PE in 1990 after her hysterecto my. Anxiety 24554892 F41.9 Patient has had increased anxiety. She is tearful and crying during her visit today due to all of her health problems. She does not want to take an antidepres melina at this time. Discussed low-dose Ativan. Improvemen t in mood overall on visit from June 08, 2023. [id number] Hanna Snider PA-C [facility] [address] [facility] [address] [place] [address] 07/27/2023 09:02:25 07/27/2023 10:25:44 Malignant tumor of ascending colon 821415646 C18.2 CT scan of the abdomen and [...] 8.2 hematocrit 29.0. MCV 67.9. Platelet count 337870. Normal cell differenti al. Low serum folate [...] Will follow-up Metastatic malignant neoplasm to liver 11071687 C78.7 CT scan of the abdomen and [...] Findings concerning for metastatic colon cancer. Nausea 004230563 R11.0 As needed Zofran and Phenergan prescribed . Pain due t o neoplastic disease 6701679838 9102 G89.3 Right upper quadrant pain secondary to liver metastasis . Patient currently taking Tylenol. Discussed as needed oxycodone to limit Tylenol exposure. Anemia 405007003 D64.9 Right-side d colon mass concerning for malignancy . Will assess for any signs of iron deficiency . Most recent hemoglobin at 8.0. Concern for blood loss from colon mass. Patient reports dark stools. Adopted 111643467 Z62.89 8 Patient is adopted and discussed hereditary gene panel. Patient does have family history of her son having bladder cancer. Will send [facility] hereditary panel. Antineopla stic chemotherapy regimen 668326505 Z51.11 Week 1 5FU Leucovorin Vectibix on [...] and Vectibix on July 27, 2023. Hypokalemia 02773098 E87 .6 Patient returns on April 29, 2023. Potassium is low at 2.9. Will send prescripti on for potassium 20 mEq daily. Will follow-up labs again next week. Loss of appetite 6367555 6 R63.0 Patient has had nausea and decreased appetite since her cancer diagnosis. She can not tolerate her nutritiona l drinks. She does take Phenergan with relief. She continues to lose weight. Will send prescripti on for Megace. Acute conjunctivitis 533 47043 H10.32 Patient returns on May 11, 2023. She has had erythema, conjuntiva inflammati on, discharged and matted left eye. She has been using warm compresses . Will send prescripti on for eye drops for conjunctiv itis.Will send in repeat prescripti on for eye drops. Diarrhea 78419336 R19.7 Diarrhea has resolved. Patient with recent C diff Deep venou s thrombosis 605337153 I82.409 Patient developed right lower extremity pain and edema.Veno us duplex on May 28, 2023 with evidence of deep vein thrombosis . Started on Eliquis 5 mg 1 tab p.o. b.i.d.. Did not start with Eliquis starter pack due to recent bleeding. Patient had a DVT and a PE in 1990 after her hysterecto my. Anxiety 09235582 F41.9 Patient has had increased anxiety. She is tearful and crying during her visit today due to all of her health problems. She does not want to take an antidepres melina at this time. Discussed low-dose Ativan. Improvemen t in mood overall on visit from June 08, 2023. [id number] Hanna Snider PA-C [facility] [address] [place] [address] 08/10/2023 09:01:37 08/10/2023 09:59:21 Malignant tumor of ascending colon 691969929 C18.2 CT scan of the abdomen and [...] 8.2 hematocrit 29.0. MCV 67.9. Platelet count 351794. Normal cell differenti al. Low serum folate [...] Will follow-up. Metastatic malignant neoplasm to liver 71102824 C78.7 CT scan of the abdomen and [...] Findings concerning for metastatic colon cancer. Nausea 517832191 R11.0 As needed Zofran and Phenergan prescribed . Pain due t o neoplastic disease 7070458990 9102 G89.3 Right upper quadrant pain secondary to liver metastasis . Patient currently taking Tylenol. Discussed as needed oxycodone to limit Tylenol exposure. Anemia 845815993 D64.9 Right-side d colon mass concerning for malignancy . Will assess for any signs of iron deficiency . Most recent hemoglobin at 8.0. Concern for blood loss from colon mass. Patient reports dark stools. Adopted 215174204 Z62.89 8 Patient is adopted and discussed hereditary gene panel. Patient does have family history of her son having bladder cancer. Will send [facility] hereditary panel. Antineopla stic chemotherapy regimen 725443180 Z51.11 Week 1 5FU Leucovorin Vectibix on [...] and Vectibix on August 10, 2023. Hypokalemia 28207601 E87 .6 Patient returns on April 29, 2023. Potassium is low at 2.9. Will send prescripti on for potassium 20 mEq daily. Will follow-up labs again next week. Loss of appetite 0769925 6 R63.0 Patient has had nausea and decreased appetite since her cancer diagnosis. She can not tolerate her nutritiona l drinks. She does take Phenergan with relief. She continues to lose weight. Will send prescripti on for Megace. Acute conjunctivitis 537 09978 H10.32 Patient returns on May 11, 2023. She has had erythema, conjuntiva inflammati on, discharged and matted left eye. She has been using warm compresses . Will send prescripti on for eye drops for conjunctiv itis.Will send in repeat prescripti on for eye drops. Diarrhea 45256268 R19.7 Diarrhea has resolved. Patient with recent C diff Deep venou s thrombosis 039667904 I82.409 Patient developed right lower extremity pain and edema.Veno us duplex on May 28, 2023 with evidence of deep vein thrombosis . Started on Eliquis 5 mg 1 tab p.o. b.i.d.. Did not start with Eliquis starter pack due to recent bleeding. Patient had a DVT and a PE in 1990 after her hysterecto my. Anxiety 65000023 F41.9 Patient has had increased anxiety. She is tearful and crying during her visit today due to all of her health problems. She does not want to take an antidepres melina at this time. Discussed low-dose Ativan. Improvemen t in mood overall on visit from June 08, 2023. [id number] Hanna Snider PA-C [facility] [address] [place] [address] 08/24/2023 09:22:37 08/24/2023 09:52:19 Malignant tumor of ascending colon 640735426 C18.2 CT scan of the abdomen and [...] 8.2 hematocrit 29.0. MCV 67.9. Platelet count 880847. Normal cell differenti al. Low serum folate [...] Will follow-up Metastatic malignant neoplasm to liver 82778414 C78.7 CT scan of the abdomen and [...] Findings concerning for metastatic colon cancer. Nausea 816120930 R11.0 As needed Zofran and Phenergan prescribed . Pain due t o neoplastic disease 6316005553 9102 G89.3 Right upper quadrant pain secondary to liver metastasis . Patient currently taking Tylenol. Discussed as needed oxycodone to limit Tylenol exposure. Anemia 674530677 D64.9 Right-side d colon mass concerning for malignancy . Will assess for any signs of iron deficiency . Most recent hemoglobin at 8.0. Concern for blood loss from colon mass. Patient reports dark stools. Adopted 371417508 Z62.89 8 Patient is adopted and discussed hereditary gene panel. Patient does have family history of her son having bladder cancer. Will send [facility] hereditary panel. Antineopla stic chemotherapy regimen 737195884 Z51.11 Week 1 5FU Leucovorin Vectibix on [...] and Vectibix on August 24, 2023. Hypokalemia 62184164 E87 .6 Patient returns on April 29, 2023. Potassium is low at 2.9. Will send prescripti on for potassium 20 mEq daily. Will follow-up labs again next week. Loss of appetite 6047035 6 R63.0 Patient has had nausea and decreased appetite since her cancer diagnosis. She can not tolerate her nutritiona l drinks. She does take Phenergan with relief. She continues to lose weight. Will send prescripti on for Megace. Acute conjunctivitis 537 39191 H10.32 Patient returns on May 11, 2023. She has had erythema, conjuntiva inflammati on, discharged and matted left eye. She has been using warm compresses . Will send prescripti on for eye drops for conjunctiv itis.Will send in repeat prescripti on for eye drops. Diarrhea 92913129 R19.7 Diarrhea has resolved. Patient with recent C diff Deep venou s thrombosis 689855140 I82.409 Patient developed right lower extremity pain and edema.Veno us duplex on May 28, 2023 with evidence of deep vein thrombosis . Started on Eliquis 5 mg 1 tab p.o. b.i.d.. Did not start with Eliquis starter pack due to recent bleeding. Patient had a DVT and a PE in 1990 after her hysterecto my. Anxiety 98369944 F41.9 Patient has had increased anxiety. She is tearful and crying during her visit today due to all of her health problems. She does not want to take an antidepres melina at this time. Discussed low-dose Ativan. Improvemen t in mood overall on visit from June 08, 2023. [id number] Hanna Snider PA-C [facility] [address] [place] [address] 09/07/2023 08:42:30 09/07/2023 09:21:28 Malignant tumor of ascending colon 251768937 C18.2 CT scan of the abdomen and [...] 8.2 hematocrit 29.0. MCV 67.9. Platelet count 564823. Normal cell differenti al. Low serum folate [...] Will follow-up. Metastatic malignant neoplasm to liver 10109252 C78.7 CT scan of the abdomen and [...] Findings concerning for metastatic colon cancer. Nausea 566810533 R11.0 As needed Zofran and Phenergan prescribed . Pain due t o neoplastic disease 1554980287 9102 G89.3 Right upper quadrant pain secondary to liver metastasis . Patient currently taking Tylenol. Discussed as needed oxycodone to limit Tylenol exposure. Anemia 627010197 D64.9 Right-side d colon mass concerning for malignancy . Will assess for any signs of iron deficiency . Most recent hemoglobin at 8.0. Concern for blood loss from colon mass. Patient reports dark stools. Adopted 595224887 Z62.89 8 Patient is adopted and discussed hereditary gene panel. Patient does have family history of her son having bladder cancer. Will send [facility] hereditary panel. Antineopla stic chemotherapy regimen 399364545 Z51.11 Week 1 5FU Leucovorin Vectibix on [...] Vectibix today secondary to conjunctiv itis Hypokalemia 77190424 E87 .6 Patient returns on April 29, 2023. Potassium is low at 2.9. Will send prescripti on for potassium 20 mEq daily. Will follow-up labs again next week. Loss of appetite 1129596 6 R63.0 Patient has had nausea and decreased appetite since her cancer diagnosis. She can not tolerate her nutritiona l drinks. She does take Phenergan with relief. She continues to lose weight. Will send prescripti on for Megace. Acute conjunctivitis 537 34898 H10.32 Patient returns on May 11, 2023. She has had erythema, conjuntiva inflammati on, discharged and matted left eye. She has been using warm compresses . Will send prescripti on for eye drops for conjunctiv itis.Will send in repeat prescripti on for eye drops. Diarrhea 68191185 R19.7 Diarrhea has resolved. Patient with recent C diff Deep venou s thrombosis 242563408 I82.409 Patient developed right lower extremity pain and edema.Veno us duplex on May 28, 2023 with evidence of deep vein thrombosis . Started on Eliquis 5 mg 1 tab p.o. b.i.d.. Did not start with Eliquis starter pack due to recent bleeding. Patient had a DVT and a PE in 1990 after her hysterecto my. Anxiety 34454185 F41.9 Patient has had increased anxiety. She is tearful and crying during her visit today due to all of her health problems. She does not want to take an antidepres melina at this time. Discussed low-dose Ativan. Improvemen t in mood overall on visit from June 08, 2023. [id number] Tomy King MD [facility] [address] [place] [address] 09/21/2023 09:41:41 09/21/2023 11:20:44 Malignant tumor of ascending colon 541213247 C18.2 CT scan of the abdomen and [...] 8.2 hematocrit 29.0. MCV 67.9. Platelet count 438003. Normal cell differenti al. Low serum folate [...] to improve. Metastatic malignant neoplasm to liver 76486200 C78.7 CT scan of the abdomen and [...] Findings concerning for metastatic colon cancer. Nausea 197947204 R11.0 As needed Zofran and Phenergan prescribed . Pain due t o neoplastic disease 1922189133 9102 G89.3 Right upper quadrant pain secondary to liver metastasis . Patient currently taking Tylenol. Discussed as needed oxycodone to limit Tylenol exposure. Anemia 971605733 D64.9 Right-side d colon mass concerning for malignancy . Will assess for any signs of iron deficiency . Most recent hemoglobin at 8.0. Concern for blood loss from colon mass. Patient reports dark stools. Adopted 525287805 Z62.89 8 Patient is adopted and discussed hereditary gene panel. Patient does have family history of her son having bladder cancer. Will send [facility] hereditary panel. Antineopla stic chemotherapy regimen 792138461 Z51.11 Week 1 5FU Leucovorin Vectibix on [...] dose held secondary to conjunctiv itis. Hypokalemia 86108211 E87 .6 Patient returns on April 29, 2023. Potassium is low at 2.9. Will send prescripti on for potassium 20 mEq daily. Will follow-up labs again next week. Loss of appetite 4812035 6 R63.0 Patient has had nausea and decreased appetite since her cancer diagnosis. She can not tolerate her nutritiona l drinks. She does take Phenergan with relief. She continues to lose weight. Will send prescripti on for Megace. Acute conjunctivitis 537 77528 H10.32 Patient returns on May 11, 2023. She has had erythema, conjuntiva inflammati on, discharged and matted left eye. She has been using warm compresses . Will send prescripti on for eye drops for conjunctiv itis.Will send in repeat prescripti on for eye drops. Diarrhea 67990001 R19.7 Diarrhea has resolved. Patient with recent C diff Deep venou s thrombosis 023860713 I82.409 Patient developed right lower extremity pain and edema.Veno us duplex on May 28, 2023 with evidence of deep vein thrombosis . Started on Eliquis 5 mg 1 tab p.o. b.i.d.. Did not start with Eliquis starter pack due to recent bleeding. Patient had a DVT and a PE in 1990 after her hysterecto my. Anxiety 84310762 F41.9 Patient has had increased anxiety. She is tearful and crying during her visit today due to all of her health problems. She does not want to take an antidepres melina at this time. Discussed low-dose Ativan. Improvemen t in mood overall on visit from June 08, 2023. [id number] Hanna Snider PA-C [facility] [address] [place] [address] 10/05/2023 09:19:08 10/05/2023 10:17:18 Malignant tumor of ascending colon 329996151 C18.2 CT scan of the abdomen and [...] 8.2 hematocrit 29.0. MCV 67.9. Platelet count 272729. Normal cell differenti al. Low serum folate [...] bilaterall y. Metastatic malignant neoplasm to liver 87066443 C78.7 CT scan of the abdomen and [...] Findings concerning for metastatic colon cancer. Nausea 739009996 R11.0 As needed Zofran and Phenergan prescribed . Pain due t o neoplastic disease [id number] 9102 G89.3 Right upper quadrant pain secondary to liver metastasis . Patient currently taking Tylenol. Discussed as needed oxycodone to limit Tylenol exposure. Anemia 063748101 D64.9 Right-side d colon mass concerning for malignancy . Will assess for any signs of iron deficiency . Most recent hemoglobin at 8.0. Concern for blood loss from colon mass. Patient reports dark stools. Adopted [id number] Z62.89 8 Patient is adopted and discussed hereditary gene panel. Patient does have family history of her son having bladder cancer. Will send [facility] hereditary panel. Antineopla stic chemotherapy regimen 571834767 Z51.11 Week 1 5FU Leucovorin Vectibix on [...] membranes of the eyes bilaterall y. Hypokalemia 91164907 E87 .6 Patient returns on April 29, 2023. Potassium is low at 2.9. Will send prescripti on for potassium 20 mEq daily. Will follow-up labs again next week. Loss of appetite 4886464 6 R63.0 Patient has had nausea and decreased appetite since her cancer diagnosis. She can not tolerate her nutritiona l drinks. She does take Phenergan with relief. She continues to lose weight. Will send prescripti on for Megace. Acute conjunctivitis 534 54506 H10.32 Patient returns on May 11, 2023. She has had erythema, conjuntiva inflammati on, discharged and matted left eye. She has been using warm compresses . Will send prescripti on for eye drops for conjunctiv itis.Will send in repeat prescripti on for eye drops. Diarrhea 04682878 R19.7 Diarrhea has resolved. Patient with recent C diff Deep venou s thrombosis 511821915 I82.409 Patient developed right lower extremity pain and edema.Veno us duplex on May 28, 2023 with evidence of deep vein thrombosis . Started on Eliquis 5 mg 1 tab p.o. b.i.d.. Did not start with Eliquis starter pack due to recent bleeding. Patient had a DVT and a PE in 1990 after her hysterecto my. Anxiety 67222849 F41.9 Patient has had increased anxiety. She is tearful and crying during her visit today due to all of her health problems. She does not want to take an antidepres melina at this time. Discussed low-dose Ativan. Improvemen t in mood overall on visit from June 08, 2023. [id number] Hanna Snider PA-C [facility] [address] [place] [address] 10/19/2023 09:07:50 10/19/2023 10:19:57 Malignant tumor of ascending colon 759699811 C18.2 CT scan of the abdomen and [...] 8.2 hematocrit 29.0. MCV 67.9. Platelet count 653953. Normal cell differenti al. Low serum folate [...] appropriat froilan. Metastatic malignant neoplasm to liver 01739802 C78.7 CT scan of the abdomen and [...] Findings concerning for metastatic colon cancer. Nausea 263259167 R11.0 As needed Zofran and Phenergan prescribed . Pain due t o neoplastic disease [id number] 9102 G89.3 Right upper quadrant pain secondary to liver metastasis . Patient currently taking Tylenol. Discussed as needed oxycodone to limit Tylenol exposure. Anemia 149644989 D64.9 Right-side d colon mass concerning for malignancy . Will assess for any signs of iron deficiency . Most recent hemoglobin at 8.0. Concern for blood loss from colon mass. Patient reports dark stools. Adopted 716301164 Z62.89 8 Patient is adopted and discussed hereditary gene panel. Patient does have family history of her son having bladder cancer. Will send [facility] hereditary panel. Antineopla stic chemotherapy regimen 293983998 Z51.11 Week 1 5FU Leucovorin Vectibix on [...] with Vectibix on October 19, 2023. Hypokalemia 38734079 E87 .6 Patient returns on April 29, 2023. Potassium is low at 2.9. Will send prescripti on for potassium 20 mEq daily. Will follow-up labs again next week. Loss of appetite 0363043 6 R63.0 Patient has had nausea and decreased appetite since her cancer diagnosis. She can not tolerate her nutritiona l drinks. She does take Phenergan with relief. She continues to lose weight. Will send prescripti on for Megace. Acute conjunctivitis 701 72322 H10.32 Patient returns on May 11, 2023. She has had erythema, conjuntiva inflammati on, discharged and matted left eye. She has been using warm compresses . Will send prescripti on for eye drops for conjunctiv itis.Will send in repeat prescripti on for eye drops. Diarrhea 08756258 R19.7 Diarrhea has resolved. Patient with recent C diff Deep venou s thrombosis 987234859 I82.409 Patient developed right lower extremity pain and edema.Veno us duplex on May 28, 2023 with evidence of deep vein thrombosis . Started on Eliquis 5 mg 1 tab p.o. b.i.d.. Did not start with Eliquis starter pack due to recent bleeding. Patient had a DVT and a PE in 1990 after her hysterecto my. Anxiety 30088187 F41.9 Patient has had increased anxiety. She is tearful and crying during her visit today due to all of her health problems. She does not want to take an antidepres melina at this time. Discussed low-dose Ativan. Improvemen t in mood overall on visit from June 08, 2023. [id number] Hanna Snider PA-C [facility] [address] [facility] [address] [place] [address] 11/02/2023 09:20:10 11/02/2023 09:58:16 Malignant tumor of ascending colon 160196538 C18.2 CT scan of the abdomen and [...] 8.2 hematocrit 29.0. MCV 67.9. Platelet count 511790. Normal cell differenti al. Low serum folate [...] ed Eliquis Metastatic malignant neoplasm to liver 81560864 C78.7 CT scan of the abdomen and [...] Findings concerning for metastatic colon cancer. Nausea 198423630 R11.0 As needed Zofran and Phenergan prescribed . Pain due t o neoplastic disease 2944324441 9102 G89.3 Right upper quadrant pain secondary to liver metastasis . Patient currently taking Tylenol. Discussed as needed oxycodone to limit Tylenol exposure. Anemia 175488598 D64.9 Right-side d colon mass concerning for malignancy . Will assess for any signs of iron deficiency . Most recent hemoglobin at 8.0. Concern for blood loss from colon mass. Patient reports dark stools. Adopted 362182019 Z62.89 8 Patient is adopted and discussed hereditary gene panel. Patient does have family history of her son having bladder cancer. Will send [facility] hereditary panel. Antineopla stic chemotherapy regimen 794884708 Z51.11 Week 1 5FU Leucovorin Vectibix on [...] with Vectibix on November 02, 2023. Hypokalemia 40709411 E87 .6 Patient returns on April 29, 2023. Potassium is low at 2.9. Will send prescripti on for potassium 20 mEq daily. Will follow-up labs again next week. Loss of appetite 8644386 6 R63.0 Patient has had nausea and decreased appetite since her cancer diagnosis. She can not tolerate her nutritiona l drinks. She does take Phenergan with relief. She continues to lose weight. Will send prescripti on for Megace. Acute conjunctivitis 537 23085 H10.32 Patient returns on May 11, 2023. She has had erythema, conjuntiva inflammati on, discharged and matted left eye. She has been using warm compresses . Will send prescripti on for eye drops for conjunctiv itis.Will send in repeat prescripti on for eye drops. Diarrhea 28447189 R19.7 Diarrhea has resolved. Patient with recent C diff Deep venou s thrombosis 261338532 I82.409 Patient developed right lower extremity pain and edema.Veno us duplex on May 28, 2023 with evidence of deep vein thrombosis . Started on Eliquis 5 mg 1 tab p.o. b.i.d.. Did not start with Eliquis starter pack due to recent bleeding. Patient had a DVT and a PE in 1990 after her hysterecto my. Anxiety 91927085 F41.9 Patient has had increased anxiety. She is tearful and crying during her visit today due to all of her health problems. She does not want to take an antidepres melina at this time. Discussed low-dose Ativan. Improvemen t in mood overall on visit from June 08, 2023. [id number] Addy Gonzales MD [facility] [address] [facility] [place] [address] 11/03/2023 13:09:58 11/03/2023 14:02:01 Malignant tumor of ascending colon 941748523 C18.2 I have scheduled the patient for [...] as a part of this patient's care. [id number] Hanna Snider PA-C [facility] [address] [place] [address] 11/23/2023 09:05:54 11/23/2023 09:52:19 Malignant tumor of ascending colon 497847531 C18.2 CT scan of the abdomen and [...] 8.2 hematocrit 29.0. MCV 67.9. Platelet count 644281. Normal cell differenti al. Low serum folate [...] mg daily. Metastatic malignant neoplasm to liver 72051146 C78.7 CT scan of the abdomen and [...] Findings concerning for metastatic colon cancer. Nausea 133533902 R11.0 As needed Zofran and Phenergan prescribed . Pain due t o neoplastic disease 9721334279 9102 G89.3 Right upper quadrant pain secondary to liver metastasis . Patient currently taking Tylenol. Discussed as needed oxycodone to limit Tylenol exposure. Anemia 602723047 D64.9 Right-side d colon mass concerning for malignancy . Will assess for any signs of iron deficiency . Most recent hemoglobin at 8.0. Concern for blood loss from colon mass. Patient reports dark stools. Adopted 660367288 Z62.89 8 Patient is adopted and discussed hereditary gene panel. Patient does have family history of her son having bladder cancer. Will send [facility] hereditary panel. Antineopla stic chemotherapy regimen 063073009 Z51.11 Week 1 5FU Leucovorin Vectibix on [...] with Vectibix on November 23, 2023. Hypokalemia 30902434 E87 .6 Patient returns on April 29, 2023. Potassium is low at 2.9. Will send prescripti on for potassium 20 mEq daily. Will follow-up labs again next week. Loss of appetite 6728288 6 R63.0 Patient has had nausea and decreased appetite since her cancer diagnosis. She can not tolerate her nutritiona l drinks. She does take Phenergan with relief. She continues to lose weight. Will send prescripti on for Megace. Acute conjunctivitis 537 79087 H10.32 Patient returns on May 11, 2023. She has had erythema, conjuntiva inflammati on, discharged and matted left eye. She has been using warm compresses . Will send prescripti on for eye drops for conjunctiv itis.Will send in repeat prescripti on for eye drops. Diarrhea 91104619 R19.7 Diarrhea has resolved. Patient with recent C diff Deep venou s thrombosis 365679105 I82.409 Patient developed right lower extremity pain and edema.Veno us duplex on May 28, 2023 with evidence of deep vein thrombosis . Started on Eliquis 5 mg 1 tab p.o. b.i.d.. Did not start with Eliquis starter pack due to recent bleeding. Patient had a DVT and a PE in 1990 after her hysterecto my. Anxiety 29250666 F41.9 Patient has had increased anxiety. She is tearful and crying during her visit today due to all of her health problems. She does not want to take an antidepres melina at this time. Discussed low-dose Ativan. Improvemen t in mood overall on visit from June 08, 2023. Mixed anxi ety and depressive disorder 350839102 F41.8 Patient returns on November 23, 2023. [...] Mirtazapin e dose to 30 mg daily. [id number] Tomy King MD [facility] [address] [place] [address] 12/07/2023 09:01:54 12/07/2023 09:40:34 Malignant tumor of ascending colon 859809811 C18.2 CT scan of the abdomen and [...] 8.2 hematocrit 29.0. MCV 67.9. Platelet count 870521. Normal cell differenti al. Low serum folate [...] 2 weeks. Metastatic malignant neoplasm to liver 42551494 C78.7 CT scan of the abdomen and [...] Findings concerning for metastatic colon cancer. Nausea 650949910 R11.0 As needed Zofran and Phenergan prescribed . Pain due t o neoplastic disease 5330688091 9102 G89.3 Right upper quadrant pain secondary to liver metastasis . Patient currently taking Tylenol. Discussed as needed oxycodone to limit Tylenol exposure. Anemia 316361131 D64.9 Right-side d colon mass concerning for malignancy . Will assess for any signs of iron deficiency . Most recent hemoglobin at 8.0. Concern for blood loss from colon mass. Patient reports dark stools. Adopted 956966985 Z62.89 8 Patient is adopted and discussed hereditary gene panel. Patient does have family history of her son having bladder cancer. Will send [facility] hereditary panel. Antineopla stic chemotherapy regimen 714267853 Z51.11 Week 1 5FU Leucovorin Vectibix on [...] with Vectibix on December 07, 2023. Hypokalemia 61323994 E87 .6 Patient returns on April 29, 2023. Potassium is low at 2.9. Will send prescripti on for potassium 20 mEq daily. Will follow-up labs again next week. Deep venou s thrombosis 925304419 I82.409 Patient developed right lower extremity pain and edema.Veno us duplex on May 28, 2023 with evidence of deep vein thrombosis . Started on Eliquis 5 mg 1 tab p.o. b.i.d.. Did not start with Eliquis starter pack due to recent bleeding. Patient had a DVT and a PE in 1990 after her hysterecto my. Mixed anxi ety and depressive disorder 934426778 F41.8 Patient returns on November 23, 2023. [...] to 30 mg daily. Atopic conjunctivitis 23 8866526 H10.12 Patient with conjunctiv itis of the left eye. Holding Vectibix today on December 07, 2023. Continue with current therapy. Will follow up again in 2 weeks. [id number] Hanna Snider PA-C [facility] [address] [place] [address] 12/21/2023 09:48:25 12/21/2023 10:21:03 Malignant tumor of ascending colon 162927966 C18.2 CT scan of the abdomen and [...] 8.2 hematocrit 29.0. MCV 67.9. Platelet count 192733. Normal cell differenti al. Low serum folate [...] 2 weeks. Metastatic malignant neoplasm to liver 88365505 C78.7 CT scan of the abdomen and [...] Findings concerning for metastatic colon cancer. Nausea 864557554 R11.0 As needed Zofran and Phenergan prescribed . Pain due t o neoplastic disease 6084398529 9102 G89.3 Right upper quadrant pain secondary to liver metastasis . Patient currently taking Tylenol. Discussed as needed oxycodone to limit Tylenol exposure. Anemia 708638401 D64.9 Right-side d colon mass concerning for malignancy . Will assess for any signs of iron deficiency . Most recent hemoglobin at 8.0. Concern for blood loss from colon mass. Patient reports dark stools. Adopted 174423262 Z62.89 8 Patient is adopted and discussed hereditary gene panel. Patient does have family history of her son having bladder cancer. Will send [facility] hereditary panel. Antineopla stic chemotherapy regimen 982113992 Z51.11 Week 1 5FU Leucovorin Vectibix on [...] with Vectibix on November 21, 2023. Hypokalemia 05221973 E87 .6 Patient returns on April 29, 2023. Potassium is low at 2.9. Will send prescripti on for potassium 20 mEq daily. Will follow-up labs again next week. Deep venou s thrombosis 284522835 I82.409 Patient developed right lower extremity pain and edema.Veno us duplex on May 28, 2023 with evidence of deep vein thrombosis . Started on Eliquis 5 mg 1 tab p.o. b.i.d.. Did not start with Eliquis starter pack due to recent bleeding. Patient had a DVT and a PE in 1990 after her hysterecto my. Mixed anxi ety and depressive disorder 106265149 F41.8 Patient returns on November 23, 2023. [...] to 30 mg daily. Atopic conjunctivitis 23 3563320 H10.12 Patient with conjunctiv itis of the left eye. Held Vectibix on December 07, 2023. Continue with current therapy. Will follow up again in 2 weeks. [id number] Hanna Snider PA-C [facility] [address] [place] [address] 01/04/2024 09:55:59 01/04/2024 10:32:04 Malignant tumor of ascending colon 330362594 C18.2 CT scan of the abdomen and [...] 8.2 hematocrit 29.0. MCV 67.9. Platelet count 544496. Normal cell differenti al. Low serum folate [...] January 2024. Metastatic malignant neoplasm to liver 01410946 C78.7 CT scan of the abdomen and [...] Findings concerning for metastatic colon cancer. Nausea 404597393 R11.0 As needed Zofran and Phenergan prescribed . Pain due t o neoplastic disease 1348916276 9102 G89.3 Right upper quadrant pain secondary to liver metastasis . Patient currently taking Tylenol. Discussed as needed oxycodone to limit Tylenol exposure. Anemia 719243347 D64.9 Right-side d colon mass concerning for malignancy . Will assess for any signs of iron deficiency . Most recent hemoglobin at 8.0. Concern for blood loss from colon mass. Patient reports dark stools. Adopted 354680744 Z62.89 8 Patient is adopted and discussed hereditary gene panel. Patient does have family history of her son having bladder cancer. Will send [facility] hereditary panel. Antineopla stic chemotherapy regimen 481765758 Z51.11 Week 1 5FU Leucovorin Vectibix on [...] without Vectibix on January 04, 2024. Hypokalemia 01904182 E87 .6 Patient returns on April 29, 2023. Potassium is low at 2.9. Will send prescripti on for potassium 20 mEq daily. Will follow-up labs again next week. Deep venou s thrombosis 349085159 I82.409 Patient developed right lower extremity pain and edema.Veno us duplex on May 28, 2023 with evidence of deep vein thrombosis . Started on Eliquis 5 mg 1 tab p.o. b.i.d.. Did not start with Eliquis starter pack due to recent bleeding. Patient had a DVT and a PE in 1990 after her hysterecto my. Mixed anxi ety and depressive disorder 706470103 F41.8 Patient returns on November 23, 2023. [...] to 30 mg daily. Atopic conjunctivitis 23 4360247 H10.12 Patient with conjunctiv itis of the left eye. Held Vectibix on December 07, 2023. Continue with current therapy. Will follow up again in 2 weeks. Iron defic iency anemia 58318516 D50.9 [id number] Hanna Snider PA-C [facility] [address] [facility] [address] [place] [address] 01/25/2024 09:42:09 01/25/2024 10:49:14 Malignant tumor of ascending colon 027368258 C18.2 CT scan of the abdomen and [...] 8.2 hematocrit 29.0. MCV 67.9. Platelet count 654923. Normal cell differenti al. Low serum folate [...] Will schedule. Metastatic malignant neoplasm to liver 85132943 C78.7 CT scan of the abdomen and [...] Findings concerning for metastatic colon cancer. Nausea 125179662 R11.0 As needed Zofran and Phenergan prescribed . Pain due t o neoplastic disease 1265515710 9102 G89.3 Right upper quadrant pain secondary to liver metastasis . Patient currently taking Tylenol. Discussed as needed oxycodone to limit Tylenol exposure. Anemia 264634152 D64.9 Right-side d colon mass concerning for malignancy . Will assess for any signs of iron deficiency . Most recent hemoglobin at 8.0. Concern for blood loss from colon mass. Patient reports dark stools. Adopted 979360445 Z62.89 8 Patient is adopted and discussed hereditary gene panel. Patient does have family history of her son having bladder cancer. Will send [facility] hereditary panel. Antineopla stic chemotherapy regimen 379253454 Z51.11 Week 1 5FU Leucovorin Vectibix on [...] with Vectibix on January 25, 2024. Hypokalemia 43703492 E87 .6 Patient returns on April 29, 2023. Potassium is low at 2.9. Will send prescripti on for potassium 20 mEq daily. Will follow-up labs again next week. Deep venou s thrombosis 448988126 I82.409 Patient developed right lower extremity pain and edema.Veno us duplex on May 28, 2023 with evidence of deep vein thrombosis . Started on Eliquis 5 mg 1 tab p.o. b.i.d.. Did not start with Eliquis starter pack due to recent bleeding. Patient had a DVT and a PE in 1990 after her hysterecto my. Mixed anxi ety and depressive disorder 445120643 F41.8 Patient returns on November 23, 2023. [...] to 30 mg daily. Atopic conjunctivitis 23 2584903 H10.12 Patient with conjunctiv itis of the left eye. Held Vectibix on December 07, 2023. Continue with current therapy. Will follow up again in 2 weeks. Iron defic iency anemia 75782664 D50.9 [id number] Hanna Snider PA-C [facility] [address] [place] [address] 02/08/2024 09:30:04 02/08/2024 10:49:29 Malignant tumor of ascending colon 073662644 C18.2 CT scan of the abdomen and [...] 8.2 hematocrit 29.0. MCV 67.9. Platelet count 716311. Normal cell differenti al. Low serum folate [...] follow-up imaging. Metastatic malignant neoplasm to liver 76773361 C78.7 CT scan of the abdomen and [...] Findings concerning for metastatic colon cancer. Nausea 697009782 R11.0 As needed Zofran and Phenergan prescribed . Pain due t o neoplastic disease 5461884843 9102 G89.3 Right upper quadrant pain secondary to liver metastasis . Patient currently taking Tylenol. Discussed as needed oxycodone to limit Tylenol exposure. Anemia 218536545 D64.9 Right-side d colon mass concerning for malignancy . Will assess for any signs of iron deficiency . Most recent hemoglobin at 8.0. Concern for blood loss from colon mass. Patient reports dark stools. Adopted 582431136 Z62.89 8 Patient is adopted and discussed hereditary gene panel. Patient does have family history of her son having bladder cancer. Will send [facility] hereditary panel. Antineopla stic chemotherapy regimen 127216463 Z51.11 Week 1 5FU Leucovorin Vectibix on [...] without Vectibix on February 08, 2024. Hypokalemia 32282869 E87 .6 Patient returns on April 29, 2023. Potassium is low at 2.9. Will send prescripti on for potassium 20 mEq daily. Will follow-up labs again next week. Deep venou s thrombosis 446353801 I82.409 Patient developed right lower extremity pain and edema.Veno us duplex on May 28, 2023 with evidence of deep vein thrombosis . Started on Eliquis 5 mg 1 tab p.o. b.i.d.. Did not start with Eliquis starter pack due to recent bleeding. Patient had a DVT and a PE in 1990 after her hysterecto my. Mixed anxi ety and depressive disorder 735348089 F41.8 Patient returns on November 23, 2023. [...] to 30 mg daily. Atopic conjunctivitis 23 4107377 H10.12 Patient with conjunctiv itis of the left eye. Held Vectibix on December 07, 2023. Continue with current therapy. Will follow up again in 2 weeks. Iron defic iency anemia 42037239 D50.9 Will follow up labs Insomnia 653611256 G47.0 0 Patient returns on February 08, 2024. She has had difficulty sleeping for most of her life. She has tried multiple medication s without relief. She is tried Mirtazapin e and lorazepam without improvemen t of insomnia. Discussed trying trazodone instead. Will send prescripti on. Will send prescripti on for Requip for restless legs. Restless legs 91039215 G 25.81 Patient returns on February 08, 2024. She has had difficulty sleeping for most of her life. She has tried multiple medication s without relief. She is tried Mirtazapin e and lorazepam without improvemen t of insomnia. Discussed trying trazodone instead. Will send prescripti on. Will send prescripti on for Requip for restless legs. [id number] Hanna Snider PA-C [facility] [address] [place] [address] 02/22/2024 10:08:45 02/22/2024 10:41:02 Malignant tumor of ascending colon 565965178 C18.2 CT scan of the abdomen and [...] 8.2 hematocrit 29.0. MCV 67.9. Platelet count 577908. Normal cell differenti al. Low serum folate [...] 15, 2024. Metastatic malignant neoplasm to liver 68443658 C78.7 CT scan of the abdomen and [...] Findings concerning for metastatic colon cancer. Nausea 511270393 R11.0 As needed Zofran and Phenergan prescribed . Pain due t o neoplastic disease [id number] 9102 G89.3 Right upper quadrant pain secondary to liver metastasis . Patient currently taking Tylenol. Discussed as needed oxycodone to limit Tylenol exposure. Anemia 892432776 D64.9 Right-side d colon mass concerning for malignancy . Will assess for any signs of iron deficiency . Most recent hemoglobin at 8.0. Concern for blood loss from colon mass. Patient reports dark stools. Adopted [id number] Z62.89 8 Patient is adopted and discussed hereditary gene panel. Patient does have family history of her son having bladder cancer. Will send [facility] hereditary panel. Antineopla stic chemotherapy regimen 859003495 Z51.11 Week 1 5FU Leucovorin Vectibix on [...] with Vectibix on February 22, 2024. Hypokalemia 93695729 E87 .6 Patient returns on April 29, 2023. Potassium is low at 2.9. Will send prescripti on for potassium 20 mEq daily. Will follow-up labs again next week. Deep venou s thrombosis 394537104 I82.409 Patient developed right lower extremity pain and edema.Veno us duplex on May 28, 2023 with evidence of deep vein thrombosis . Started on Eliquis 5 mg 1 tab p.o. b.i.d.. Did not start with Eliquis starter pack due to recent bleeding. Patient had a DVT and a PE in 1990 after her hysterecto my. Mixed anxi ety and depressive disorder 028812944 F41.8 Patient returns on November 23, 2023. [...] to 30 mg daily. Atopic conjunctivitis 23 2562469 H10.12 Patient with conjunctiv itis of the left eye. Held Vectibix on December 07, 2023. Continue with current therapy. Will follow up again in 2 weeks. Iron defic iency anemia 23725222 D50.9 Will follow up labs Insomnia 455024821 G47.0 0 Patient returns on February 08, 2024. She has had difficulty sleeping for most of her life. She has tried multiple medication s without relief. She is tried Mirtazapin e and lorazepam without improvemen t of insomnia. Discussed trying trazodone instead. Will send prescripti on. Will send prescripti on for Requip for restless legs. Restless legs 04976912 G 25.81 Patient returns on February 08, 2024. She has had difficulty sleeping for most of her life. She has tried multiple medication s without relief. She is tried Mirtazapin e and lorazepam without improvemen t of insomnia. Discussed trying trazodone instead. Will send prescripti on. Will send prescripti on for Requip for restless legs. Infection of skin and/or subcutaneous tissue 39012204 L08.9 Patient returns on February 22, 2024. Patient has paronychia of the left ring finger after pulling a piece of loose skin yesterday. No abscess or drainage present. Discussed topical antibiotic s plus warm water soaks. Will send prescripti on. Discussed if does not improve or worsens will do oral antibiotic s. Will follow-up. [id number] Hanna Snider PA-C [facility] [address] [place] [address] 03/07/2024 10:12:33 03/07/2024 11:14:04 Malignant tumor of ascending colon 917188698 C18.2 CT scan of the abdomen and [...] 8.2 hematocrit 29.0. MCV 67.9. Platelet count 299976. Normal cell differenti al. Low serum folate [...] 15, 2024. Metastatic malignant neoplasm to liver 00493327 C78.7 CT scan of the abdomen and [...] Findings concerning for metastatic colon cancer. Nausea 865534642 R11.0 As needed Zofran and Phenergan prescribed . Pain due t o neoplastic disease [id number] 9102 G89.3 Right upper quadrant pain secondary to liver metastasis . Patient currently taking Tylenol. Discussed as needed oxycodone to limit Tylenol exposure. Anemia 704117586 D64.9 Right-side d colon mass concerning for malignancy . Will assess for any signs of iron deficiency . Most recent hemoglobin at 8.0. Concern for blood loss from colon mass. Patient reports dark stools. Adopted 458656223 Z62.89 8 Patient is adopted and discussed hereditary gene panel. Patient does have family history of her son having bladder cancer. Will send [facility] hereditary panel. Antineopla stic chemotherapy regimen 602334880 Z51.11 Week 1 5FU Leucovorin Vectibix on [...] with Vectibix on March 07, 2024. Hypokalemia 59116191 E87 .6 Patient returns on April 29, 2023. Potassium is low at 2.9. Will send prescripti on for potassium 20 mEq daily. Will follow-up labs again next week. Deep venou s thrombosis 830282583 I82.409 Patient developed right lower extremity pain and edema.Veno us duplex on May 28, 2023 with evidence of deep vein thrombosis . Started on Eliquis 5 mg 1 tab p.o. b.i.d.. Did not start with Eliquis starter pack due to recent bleeding. Patient had a DVT and a PE in 1990 after her hysterecto my. Mixed anxi ety and depressive disorder 712469508 F41.8 Patient returns on November 23, 2023. [...] to 30 mg daily. Atopic conjunctivitis 23 1874557 H10.12 Patient with conjunctiv itis of the left eye. Held Vectibix on December 07, 2023. Continue with current therapy. Will follow up again in 2 weeks. Iron defic iency anemia 41771069 D50.9 Will follow up labs Insomnia 354545092 G47.0 0 Patient returns on February 08, 2024. She has had difficulty sleeping for most of her life. She has tried multiple medication s without relief. She is tried Mirtazapin e and lorazepam without improvemen t of insomnia. Discussed trying trazodone instead. Will send prescripti on. Will send prescripti on for Requip for restless legs. Restless legs 54540263 G 25.81 Patient returns on February 08, 2024. She has had difficulty sleeping for most of her life. She has tried multiple medication s without relief. She is tried Mirtazapin e and lorazepam without improvemen t of insomnia. Discussed trying trazodone instead. Will send prescripti on. Will send prescripti on for Requip for restless legs. Infection of skin and/or subcutaneous tissue 81952957 L08.9 Patient returns on February 22, 2024. Patient has paronychia of the left ring finger after pulling a piece of loose skin yesterday. No abscess or drainage present. Discussed topical antibiotic s plus warm water soaks. Will send prescripti on. Discussed if does not improve or worsens will do oral antibiotic s. Will follow-up. This has resolved. [id number] Hanna Snider PA-C [facility] [address] [place] [address] 03/21/2024 09:44:36 03/21/2024 10:52:41 Malignant tumor of ascending colon 929448995 C18.2 CT scan of the abdomen and [...] 8.2 hematocrit 29.0. MCV 67.9. Platelet count 630332. Normal cell differenti al. Low serum folate [...] current therapy. Metastatic malignant neoplasm to liver 95108227 C78.7 CT scan of the abdomen and [...] Findings concerning for metastatic colon cancer. Nausea 841556171 R11.0 As needed Zofran and Phenergan prescribed . Pain due t o neoplastic disease 0958547012 9102 G89.3 Right upper quadrant pain secondary to liver metastasis . Patient currently taking Tylenol. Discussed as needed oxycodone to limit Tylenol exposure. Anemia 604786659 D64.9 Right-side d colon mass concerning for malignancy . Will assess for any signs of iron deficiency . Most recent hemoglobin at 8.0. Concern for blood loss from colon mass. Patient reports dark stools. Adopted 143209526 Z62.89 8 Patient is adopted and discussed hereditary gene panel. Patient does have family history of her son having bladder cancer. Will send [facility] hereditary panel. Antineopla stic chemotherapy regimen 128543299 Z51.11 Week 1 5FU Leucovorin Vectibix on [...] with Vectibix on March 21, 2024. Hypokalemia 18624907 E87 .6 Patient returns on April 29, 2023. Potassium is low at 2.9. Will send prescripti on for potassium 20 mEq daily. Will follow-up labs again next week. Deep venou s thrombosis 872092804 I82.409 Patient developed right lower extremity pain and edema.Veno us duplex on May 28, 2023 with evidence of deep vein thrombosis . Started on Eliquis 5 mg 1 tab p.o. b.i.d.. Did not start with Eliquis starter pack due to recent bleeding. Patient had a DVT and a PE in 1990 after her hysterecto my. Mixed anxi ety and depressive disorder 782695983 F41.8 Patient returns on November 23, 2023. [...] to 30 mg daily. Atopic conjunctivitis 23 7523707 H10.12 Patient with conjunctiv itis of the left eye. Held Vectibix on December 07, 2023. Continue with current therapy. Will follow up again in 2 weeks. Iron defic iency anemia 80021266 D50.9 Will follow up labs Insomnia 145423549 G47.0 0 Patient returns on February 08, 2024. She has had difficulty sleeping for most of her life. She has tried multiple medication s without relief. She is tried Mirtazapin e and lorazepam without improvemen t of insomnia. Discussed trying trazodone instead. Will send prescripti on. Will send prescripti on for Requip for restless legs. Restless legs 87001882 G 25.81 Patient returns on February 08, 2024. She has had difficulty sleeping for most of her life. She has tried multiple medication s without relief. She is tried Mirtazapin e and lorazepam without improvemen t of insomnia. Discussed trying trazodone instead. Prescripti on sent for Requip for restless legs. [id number] Hanna Snider PA-C [facility] [address] [place] [address] 04/04/2024 09:54:49 04/04/2024 10:42:05 Malignant tumor of ascending colon 594681695 C18.2 CT scan of the abdomen and [...] 8.2 hematocrit 29.0. MCV 67.9. Platelet count 929780. Normal cell differenti al. Low serum folate [...] current therapy. Metastatic malignant neoplasm to liver 81163462 C78.7 CT scan of the abdomen and [...] Findings concerning for metastatic colon cancer. Nausea 111199295 R11.0 As needed Zofran and Phenergan prescribed . Pain due t o neoplastic disease 5684974658 9102 G89.3 Right upper quadrant pain secondary to liver metastasis . Patient currently taking Tylenol. Discussed as needed oxycodone to limit Tylenol exposure. Anemia 050811780 D64.9 Right-side d colon mass concerning for malignancy . Will assess for any signs of iron deficiency . Most recent hemoglobin at 8.0. Concern for blood loss from colon mass. Patient reports dark stools. Adopted 845402121 Z62.89 8 Patient is adopted and discussed hereditary gene panel. Patient does have family history of her son having bladder cancer. Will send [facility] hereditary panel. Antineopla stic chemotherapy regimen 407974138 Z51.11 Week 1 5FU Leucovorin Vectibix on [...] without Vectibix on April 04, 2024. Hypokalemia 06193592 E87 .6 Patient returns on April 29, 2023. Potassium is low at 2.9. Will send prescripti on for potassium 20 mEq daily. Will follow-up labs again next week. Deep venou s thrombosis 590884311 I82.409 Patient developed right lower extremity pain and edema.Veno us duplex on May 28, 2023 with evidence of deep vein thrombosis . Started on Eliquis 5 mg 1 tab p.o. b.i.d.. Did not start with Eliquis starter pack due to recent bleeding. Patient had a DVT and a PE in 1990 after her hysterecto my. Mixed anxi ety and depressive disorder 241435345 F41.8 Patient returns on November 23, 2023. [...] prescripti on for Cymbalta. Atopic conjunctivitis 23 0919370 H10.12 Patient with conjunctiv itis of the left eye. Held Vectibix on December 07, 2023. Continue with current therapy. Will follow up again in 2 weeks. Iron defic iency anemia 11391223 D50.9 Will follow up labs Insomnia 148568224 G47.0 0 Patient returns on February 08, 2024. She has had difficulty sleeping for most of her life. She has tried multiple medication s without relief. She is tried Mirtazapin e and lorazepam without improvemen t of insomnia. Discussed trying trazodone instead. Will send prescripti on. Will send prescripti on for Requip for restless legs. Restless legs 35276731 G 25.81 Patient returns on February 08, [...] also send prescripti on for fluconazol e. [id number] Hanna Snider PA-C [facility] [address] [place] [address] 04/18/2024 09:51:34 04/18/2024 11:21:47 Malignant tumor of ascending colon 759857307 C18.2 CT scan of the abdomen and [...] 8.2 hematocrit 29.0. MCV 67.9. Platelet count 258221. Normal cell differenti al. Low serum folate [...] current therapy. Metastatic malignant neoplasm to liver 60753355 C78.7 CT scan of the abdomen and [...] Findings concerning for metastatic colon cancer. Nausea 944708070 R11.0 As needed Zofran and Phenergan prescribed . Pain due t o neoplastic disease 9991557360 9102 G89.3 Right upper quadrant pain secondary to liver metastasis . Patient currently taking Tylenol. Discussed as needed oxycodone to limit Tylenol exposure. Anemia 479994381 D64.9 Right-side d colon mass concerning for malignancy . Will assess for any signs of iron deficiency . Most recent hemoglobin at 8.0. Concern for blood loss from colon mass. Patient reports dark stools. Adopted 701988837 Z62.89 8 Patient is adopted and discussed hereditary gene panel. Patient does have family history of her son having bladder cancer. Will send [facility] hereditary panel. Antineopla stic chemotherapy regimen 716394529 Z51.11 Week 1 5FU Leucovorin Vectibix on [...] without Vectibix on April 18, 2024. Hypokalemia 98973962 E87 .6 Patient returns on April 29, 2023. Potassium is low at 2.9. Will send prescripti on for potassium 20 mEq daily. Will follow-up labs again next week. Deep venou s thrombosis 227776331 I82.409 Patient developed right lower extremity pain and edema.Veno us duplex on May 28, 2023 with evidence of deep vein thrombosis . Started on Eliquis 5 mg 1 tab p.o. b.i.d.. Did not start with Eliquis starter pack due to recent bleeding. Patient had a DVT and a PE in 1990 after her hysterecto my. Mixed anxi ety and depressive disorder 443526498 F41.8 Patient returns on November 23, 2023. [...] prescripti on for Cymbalta. Atopic conjunctivitis 23 5832361 H10.12 Patient with conjunctiv itis of the left eye. Held Vectibix on December 07, 2023. Continue with current therapy. Will follow up again in 2 weeks. Iron defic iency anemia 70584726 D50.9 Will follow up labs Insomnia 108837976 G47.0 0 Patient returns on February 08, 2024. She has had difficulty sleeping for most of her life. She has tried multiple medication s without relief. She is tried Mirtazapin e and lorazepam without improvemen t of insomnia. Discussed trying trazodone instead. Will send prescripti on. Will send prescripti on for Requip for restless legs. Restless legs 77232787 G 25.81 Patient returns on February 08, [...] also send prescripti on for fluconazol e. [id number] Hanna Snider PA-C [facility] [address] [facility] [address] [place] [address] 05/02/2024 09:52:10 05/02/2024 10:44:11 Malignant tumor of ascending colon 412503461 C18.2 CT scan of the abdomen and [...] 8.2 hematocrit 29.0. MCV 67.9. Platelet count 580062. Normal cell differenti al. Low serum folate [...] current therapy. Metastatic malignant neoplasm to liver 76346961 C78.7 CT scan of the abdomen and [...] Findings concerning for metastatic colon cancer. Nausea 069364077 R11.0 As needed Zofran and Phenergan prescribed . Pain due t o neoplastic disease 7284607983 9102 G89.3 Right upper quadrant pain secondary to liver metastasis . Patient currently taking Tylenol. Discussed as needed oxycodone to limit Tylenol exposure. Anemia 592474464 D64.9 Right-side d colon mass concerning for malignancy . Will assess for any signs of iron deficiency . Most recent hemoglobin at 8.0. Concern for blood loss from colon mass. Patient reports dark stools. Adopted 431229791 Z62.89 8 Patient is adopted and discussed hereditary gene panel. Patient does have family history of her son having bladder cancer. Will send [facility] hereditary panel. Antineopla stic chemotherapy regimen 751259433 Z51.11 Week 1 5FU Leucovorin Vectibix on [...] without Vectibix on May 02, 2024. Hypokalemia 08784450 E87 .6 Patient returns on April 29, 2023. Potassium is low at 2.9. Will send prescripti on for potassium 20 mEq daily. Will follow-up labs again next week. Deep venou s thrombosis 106799185 I82.409 Patient developed right lower extremity pain and edema.Veno us duplex on May 28, 2023 with evidence of deep vein thrombosis . Started on Eliquis 5 mg 1 tab p.o. b.i.d.. Did not start with Eliquis starter pack due to recent bleeding. Patient had a DVT and a PE in 1990 after her hysterecto my. Mixed anxi ety and depressive disorder 483552332 F41.8 Patient returns on November 23, 2023. [...] prescripti on for Cymbalta. Atopic conjunctivitis 23 6129170 H10.12 Patient with conjunctiv itis of the left eye. Held Vectibix on December 07, 2023. Continue with current therapy. Will follow up again in 2 weeks. Iron defic iency anemia 50756975 D50.9 Will follow up labs Insomnia 620350476 G47.0 0 Patient returns on February 08, 2024. She has had difficulty sleeping for most of her life. She has tried multiple medication s without relief. She is tried Mirtazapin e and lorazepam without improvemen t of insomnia. Discussed trying trazodone instead. Will send prescripti on. Will send prescripti on for Requip for restless legs. Restless legs 77642144 G 25.81 Patient returns on February 08, 2024. She has had difficulty sleeping for most of her life. She has tried multiple medication s without relief. She is tried Mirtazapin e and lorazepam without improvemen t of insomnia. Discussed trying trazodone instead. Prescripti on sent for Requip for restless legs. Candidiasis of skin 4958 3006 B37.2 Patient returns on April 04, [...] and took Diflucan tablet. Rash has resolved. [id number] Tomy King MD [facility] [address] [place] [address] 05/16/2024 10:11:10 05/16/2024 10:33:39 Malignant tumor of ascending colon 366680976 C18.2 CT scan of the abdomen and [...] 8.2 hematocrit 29.0. MCV 67.9. Platelet count 322946. Normal cell differenti al. Low serum folate [...] 16, 2024. Metastatic malignant neoplasm to liver 89874852 C78.7 CT scan of the abdomen and [...] Findings concerning for metastatic colon cancer. Nausea 323896247 R11.0 As needed Zofran and Phenergan prescribed . Pain due t o neoplastic disease 2849403815 9102 G89.3 Right upper quadrant pain secondary to liver metastasis . Patient currently taking Tylenol. Discussed as needed oxycodone to limit Tylenol exposure. Anemia 815361713 D64.9 Right-side d colon mass concerning for malignancy . Will assess for any signs of iron deficiency . Most recent hemoglobin at 8.0. Concern for blood loss from colon mass. Patient reports dark stools. Adopted 921735788 Z62.89 8 Patient is adopted and discussed hereditary gene panel. Patient does have family history of her son having bladder cancer. Will send [facility] hereditary panel. Antineopla stic chemotherapy regimen 615472399 Z51.11 Week 1 5FU Leucovorin Vectibix on [...] on May 16, 2024. Vectibix resumed. Hypokalemia 28549386 E87 .6 Patient returns on April 29, 2023. Potassium is low at 2.9. Will send prescripti on for potassium 20 mEq daily. Will follow-up labs again next week. Deep venou s thrombosis 716035817 I82.409 Patient developed right lower extremity pain [...] duplex. Mixed anxi ety and depressive disorder 034435563 F41.8 Patient returns on November 23, 2023. [...] prescripti on for Cymbalta. Atopic conjunctivitis 23 4232613 H10.12 Patient with conjunctiv itis of the left eye. Held Vectibix on December 07, 2023. Continue with current therapy. Will follow up again in 2 weeks. Iron defic iency anemia 94288160 D50.9 Will follow up labs Insomnia 401699599 G47.0 0 Patient returns on February 08, 2024. She has had difficulty sleeping for most of her life. She has tried multiple medication s without relief. She is tried Mirtazapin e and lorazepam without improvemen t of insomnia. Discussed trying trazodone instead. Will send prescripti on. Will send prescripti on for Requip for restless legs. Restless legs 05716703 G 25.81 Patient returns on February 08, 2024. She has had difficulty sleeping for most of her life. She has tried multiple medication s without relief. She is tried Mirtazapin e and lorazepam without improvemen t of insomnia. Discussed trying trazodone instead. Prescripti on sent for Requip for restless legs. [id number] Hanna Snider PA-C [facility] [address] [facility] [address] [place] [address] 05/30/2024 09:21:34 05/30/2024 11:05:52 Malignant tumor of ascending colon 960738826 C18.2 CT scan of the abdomen and [...] 8.2 hematocrit 29.0. MCV 67.9. Platelet count 004621. Normal cell differenti al. Low serum folate [...] up labs. Metastatic malignant neoplasm to liver 98577228 C78.7 CT scan of the abdomen and [...] Findings concerning for metastatic colon cancer. Nausea 495557213 R11.0 As needed Zofran and Phenergan prescribed . Patient returns on May 30, 2024. Patient has had intermitte nt nausea that occurs randomly. Will try scopolamin e patches. Pain due t o neoplastic disease 1644319998 9102 G89.3 Right upper quadrant pain secondary to liver metastasis . Patient currently taking Tylenol. Discussed as needed oxycodone to limit Tylenol exposure. Anemia 942608522 D64.9 Right-side d colon mass concerning for malignancy . Will assess for any signs of iron deficiency . Most recent hemoglobin at 8.0. Concern for blood loss from colon mass. Patient reports dark stools. Adopted 605910683 Z62.89 8 Patient is adopted and discussed hereditary gene panel. Patient does have family history of her son having bladder cancer. Will send [facility] hereditary panel. Antineopla stic chemotherapy regimen 207421500 Z51.11 Week 1 5FU Leucovorin Vectibix on [...] 2024. Patient will receive Vectibix today. Hypokalemia 06773141 E87 .6 Patient returns on April 29, 2023. Potassium is low at 2.9. Will send prescripti on for potassium 20 mEq daily. Will follow-up labs again next week. Deep venou s thrombosis 511441726 I82.409 Patient developed right lower extremity pain [...] duplex. Mixed anxi ety and depressive disorder 395762031 F41.8 Patient returns on November 23, 2023. [...] prescripti on for Cymbalta. Atopic conjunctivitis 23 9224834 H10.12 Patient with conjunctiv itis of the left eye. Held Vectibix on December 07, 2023. Continue with current therapy. Will follow up again in 2 weeks. Iron defic iency anemia 23714313 D50.9 Will follow up labs Insomnia 311242783 G47.0 0 Patient returns on February 08, 2024. She has had difficulty sleeping for most of her life. She has tried multiple medication s without relief. She is tried Mirtazapin e and lorazepam without improvemen t of insomnia. Discussed trying trazodone instead. Will send prescripti on. Will send prescripti on for Requip for restless legs. Restless legs 48122961 G 25.81 Patient returns on February 08, [...] the area dry. Will follow-up. Generalized rash 2111177 06 R21 Patient returns on May 30, [...] to keep the area dry. Will follow-up. [id number] Hanna Snider PA-C [facility] [address] [place] [address] 06/27/2024 09:58:37 06/27/2024 10:53:58 Malignant tumor of ascending colon 439867886 C18.2 CT scan of the abdomen and [...] 8.2 hematocrit 29.0. MCV 67.9. Platelet count 781328. Normal cell differenti al. Low serum folate [...] is following with the Coumadin clinic at [facility]. She is scheduled for cardiac [...] up labs. Metastatic malignant neoplasm to liver 47665257 C78.7 CT scan of the abdomen and [...] Findings concerning for metastatic colon cancer. Nausea 339799561 R11.0 As needed Zofran and Phenergan prescribed . Discussed trying scopolamin e patches but her insurance wouldn't cover. Pain due t o neoplastic disease 5101976037 9102 G89.3 Right upper quadrant pain secondary to liver metastasis . Patient currently taking Tylenol. Discussed as needed oxycodone to limit Tylenol exposure. Anemia 640207551 D64.9 Right-side d colon mass concerning for malignancy . Will assess for any signs of iron deficiency . Most recent hemoglobin at 8.0. Concern for blood loss from colon mass. Patient reports dark stools. Adopted 874400551 Z62.89 8 Patient is adopted and discussed hereditary gene panel. Patient does have family history of her son having bladder cancer. Will send [facility] hereditary panel. Antineopla stic chemotherapy regimen [id number] Z51.11 Week 1 5FU Leucovorin Vectibix on [...] Patient will receive not Vectibix today. Hypokalemia 83081072 E87 .6 Patient returns on April 29, 2023. Potassium is low at 2.9. Will send prescripti on for potassium 20 mEq daily. Will follow-up labs again next week. Deep venou s thrombosis 410210242 I82.409 Patient developed right lower extremity pain [...] duplex. Mixed anxi ety and depressive disorder 401340847 F41.8 Patient returns on November 23, 2023. [...] prescripti on for Cymbalta. Atopic conjunctivitis 23 2882708 H10.12 Patient with conjunctiv itis of the left eye. Held Vectibix on December 07, 2023. Continue with current therapy. Will follow up again in 2 weeks. Iron defic iency anemia 22501121 D50.9 Will follow up labs Insomnia 345734122 G47.0 0 Patient returns on February 08, 2024. She has had difficulty sleeping for most of her life. She has tried multiple medication s without relief. She is tried Mirtazapin e and lorazepam without improvemen t of insomnia. Discussed trying trazodone instead. Will send prescripti on. Will send prescripti on for Requip for restless legs. Restless legs 66496204 G 25.81 Patient returns on February 08, [...] patient has not received Vectibix. Generalized rash 4775550 06 R21 Patient returns on May 30, [...] is following with the Coumadin clinic at [facility]. Congestive heart failure 88725140 I50.9 Patient returns on June 27, 2024. Since previous visit patient has been diagnosed with congestive heart failure and atrial fibrillati on. She has started lasix and is following with a cardiologi st. [id number] Hanna Snider PA-C [facility] [address] [place] [address] 07/11/2024 09:55:48 07/11/2024 10:53:23 Malignant tumor of ascending colon 232672390 C18.2 CT scan of the abdomen and [...] 8.2 hematocrit 29.0. MCV 67.9. Platelet count 603569. Normal cell differenti al. Low serum folate [...] up labs. Metastatic malignant neoplasm to liver 61442797 C78.7 CT scan of the abdomen and [...] Findings concerning for metastatic colon cancer. Nausea 306030508 R11.0 As needed Zofran and Phenergan prescribed . Discussed trying scopolamin e patches but her insurance wouldn't cover. She is taking Zofran with relief. Pain due t o neoplastic disease 1493660096 9102 G89.3 She is taking hydrocodon e 7.5 mg b.i.d. Discussed taking medication every 4-6 hours as needed. Anemia 999714760 D64.9 Right-side d colon mass concerning for malignancy . Will assess for any signs of iron deficiency . Most recent hemoglobin at 8.0. Concern for blood loss from colon mass. Patient reports dark stools. Adopted 858028337 Z62.89 8 Patient is adopted and discussed hereditary gene panel. Patient does have family history of her son having bladder cancer. Will send [facility] hereditary panel. Antineopla stic chemotherapy regimen 919495129 Z51.11 Week 1 5FU Leucovorin Vectibix on [...] 2024. Patient will receive Vectibix today. Hypokalemia 44210232 E87 .6 Patient returns on April 29, 2023. Potassium is low at 2.9. Will send prescripti on for potassium 20 mEq daily. Will follow-up labs again next week. Deep venou s thrombosis 708829419 I82.409 Patient developed right lower extremity pain [...] duplex. Mixed anxi ety and depressive disorder 185001459 F41.8 Patient returns on November 23, 2023. [...] prescripti on for Cymbalta. Atopic conjunctivitis 23 8159069 H10.12 Patient with conjunctiv itis of the left eye. Held Vectibix on December 07, 2023. Continue with current therapy. Will follow up again in 2 weeks. Iron defic iency anemia 83479178 D50.9 Will follow up labs Insomnia 102680979 G47.0 0 Patient returns on February 08, 2024. She has had difficulty sleeping for most of her life. She has tried multiple medication s without relief. She is tried Mirtazapin e and lorazepam without improvemen t of insomnia. Discussed trying trazodone instead. Will send prescripti on. Will send prescripti on for Requip for restless legs. Restless legs 64883486 G 25.81 Patient returns on February 08, [...] patient has not received Vectibix. Generalized rash 6833913 06 R21 Patient returns on May 30, [...] is following with the Coumadin clinic at [facility]. Congestive heart failure 94802267 I50.9 Patient returns on June 27, 2024. Since previous visit patient has been diagnosed with congestive heart failure and atrial fibrillati on. She has started lasix and is following with a cardiologi st. [id number] Jana España MD [facility] [address] [place] [address] 07/06/2024 10:53:43 07/08/2024 03:53:47 Seen by palliative care service [id number] Z51.5 Introduced services today. Dtr and son would be NOK - she feels important to start thinking about completion of LW/AD- I provided copies today and [facility] and will plan to f/u on this is two weeks. Encouraged her to think about HCS/code status. Still wants to continue chemo and has scans next week - did not discuss hospice, but eligible at any point Pain due t o neoplastic disease [id number] 9102 G89.3 Uncontroll ed, had lortab prescribed which manages pain well when she takes medication . Encouraged adherence. Mixed anxi ety and depressive disorder 410957944 F41.8 Uncontroll ed. Not taking cymbalta. Encouraged adherence and PRN ativan for breakthrou gh syptoms. Did not wish to pursue CBt at this time, will d/w Elsa for additional support options moving forward Nausea and vomiting 1693 2000 R11.2 Related to malignancy vs. Chemo. Improved with PRN and qAM zofran, likely related to chemo vs. malignancy Loss of appetite 0538911 6 R63.0 Related to malignancy . Not taking mirtazapin e. Does not want to add additional Rx at this itme or see nutritioni st. [id number] Hanna Snider PA-C [facility] [address] [place] [address] 07/25/2024 10:19:02 07/25/2024 10:39:35 Malignant tumor of ascending colon 492676850 C18.2 CT scan of the abdomen and [...] 8.2 hematocrit 29.0. MCV 67.9. Platelet count 009696. Normal cell differenti al. Low serum folate [...] Vectibix today. Metastatic malignant neoplasm to liver 54435325 C78.7 CT scan of the abdomen and [...] Findings concerning for metastatic colon cancer. Nausea 827906263 R11.0 As needed Zofran and Phenergan prescribed . Discussed trying scopolamin e patches but her insurance wouldn't cover. She is taking Zofran with relief. Pain due t o neoplastic disease 5826154107 9102 G89.3 She is taking hydrocodon e 7.5 mg b.i.d. Discussed taking medication every 4-6 hours as needed. Anemia 403288658 D64.9 Right-side d colon mass concerning for malignancy . Will assess for any signs of iron deficiency . Hemoglobin previously 8.0. Concern for blood loss from colon mass. Patient reports dark stools. labs on July 25, 2024 with improvemen t of hemoglobin 12.6. Patient is currently receiving infusional iron. Adopted 014834331 Z62.89 8 Patient is adopted and discussed hereditary gene panel. Patient does have family history of her son having bladder cancer. Will send [facility] hereditary panel. Antineopla stic chemotherapy regimen 560781740 Z51.11 Week 1 5FU Leucovorin Vectibix on [...] Patient will not receive Vectibix today. Hypokalemia 46884710 E87 .6 Patient returns on April 29, 2023. Potassium is low at 2.9. Will send prescripti on for potassium 20 mEq daily. Will follow-up labs again next week. Deep venou s thrombosis 577425053 I82.409 Patient developed right lower extremity pain [...] duplex. Mixed anxi ety and depressive disorder 403229140 F41.8 Patient returns on November 23, 2023. [...] reports depression has improved. Atopic conjunctivitis 23 7184842 H10.12 Patient with conjunctiv itis of the left eye. Held Vectibix on December 07, 2023. Continue with current therapy. Will follow up again in 2 weeks. Patient returns on July 25, 2024. She does have conjunctiv itis of the left eye. Will hold Vectibix today. Will follow up. Iron defic iency anemia 09136415 D50.9 Currently receiving infusional iron. Will continue to monitor. Insomnia 453195873 G47.0 0 Patient returns on February 08, 2024. She has had difficulty sleeping for most of her life. She has tried multiple medication s without relief. She is tried Mirtazapin e and lorazepam without improvemen t of insomnia. Discussed trying trazodone instead. Will send prescripti on. Will send prescripti on for Requip for restless legs. Restless legs 48507688 G 25.81 Patient returns on February 08, [...] with diflucan and nystain powder. Generalized rash 4653836 06 R21 Patient returns on May 30, [...] is following with the Coumadin clinic at [facility]. Congestive heart failure 90097480 I50.9 Patient returns on June 27, 2024. Since previous visit patient has been diagnosed with congestive heart failure and atrial fibrillati on. She has started lasix and is following with a cardiologi st. Cachexia 161582216 R64 Patient returns on July 25, 2024. Patient has had decreased appetite. Continues to lose weight. She has lost 4 more lbs since previous visit. She is drinking nutritiona l supplement s. Discussed appetite stimulant. Patient previously refused. Now she is agreeable to try Megace. Will send prescripti on. Will follow up for angela portillo. [id number] Tomy King MD [facility] [address] [place] [address] 08/01/2024 11:10:37 08/01/2024 12:30:43 Malignant tumor of ascending colon 040802471 C18.2 CT scan of the abdomen and [...] 8.2 hematocrit 29.0. MCV 67.9. Platelet count 571280. Normal cell differenti al. Low serum folate [...] study published in September 2022 in the [place] [facility] of combined Avastin therapy [...] Will follow-up Metastatic malignant neoplasm to liver 23327628 C78.7 CT scan of the abdomen and [...] Findings concerning for metastatic colon cancer. Nausea 928612355 R11.0 As needed Zofran and Phenergan prescribed . Discussed trying scopolamin e patches but her insurance wouldn't cover. She is taking Zofran with relief. Pain due t o neoplastic disease 7261654210 9102 G89.3 She is taking hydrocodon e 7.5 mg b.i.d. Discussed taking medication every 4-6 hours as needed. Anemia 803149030 D64.9 Right-side d colon mass concerning for malignancy . Will assess for any signs of iron deficiency . Hemoglobin previously 8.0. Concern for blood loss from colon mass. Patient reports dark stools. labs on July 25, 2024 with improvemen t of hemoglobin 12.6. Patient is currently receiving infusional iron. Adopted 167646625 Z62.89 8 Patient is adopted and discussed hereditary gene panel. Patient does have family history of her son having bladder cancer. Will send [facility] hereditary panel. Antineopla stic chemotherapy regimen 298571354 Z51.11 Week 1 5FU Leucovorin Vectibix on [...] 2024 due to disease progressio n. Hypokalemia 56728807 E87 .6 Patient returns on April 29, 2023. Potassium is low at 2.9. Will send prescripti on for potassium 20 mEq daily. Will follow-up labs again next week. Deep venou s thrombosis 492211363 I82.409 Patient developed right lower extremity pain [...] duplex. Mixed anxi ety and depressive disorder 353648826 F41.8 Patient returns on November 23, 2023. [...] reports depression has improved. Atopic conjunctivitis 23 2691171 H10.12 Patient with conjunctiv itis of the left eye. Held Vectibix on December 07, 2023. Continue with current therapy. Will follow up again in 2 weeks. Patient returns on July 25, 2024. She does have conjunctiv itis of the left eye. Will hold Vectibix today. Will follow up. Iron defic iency anemia 76604934 D50.9 Currently receiving infusional iron. Will continue to monitor. Insomnia 463519405 G47.0 0 Patient returns on February 08, 2024. She has had difficulty sleeping for most of her life. She has tried multiple medication s without relief. She is tried Mirtazapin e and lorazepam without improvemen t of insomnia. Discussed trying trazodone instead. Will send prescripti on. Will send prescripti on for Requip for restless legs. Restless legs 04594552 G 25.81 Patient returns on February 08, [...] with diflucan and nystain powder. Generalized rash 6111077 06 R21 Patient returns on May 30, [...] is following with the Coumadin clinic at [facility]. Congestive heart failure 62714633 I50.9 Patient returns on June 27, 2024. Since previous visit patient has been diagnosed with congestive heart failure and atrial fibrillati on. She has started lasix and is following with a cardiologi st. Cachexia 209238803 R64 Patient returns on July 25, 2024. Patient has had decreased appetite. Continues to lose weight. She has lost 4 more lbs since previous visit. She is drinking nutritiona l supplement s. Discussed appetite stimulant. Patient previously refused. Now she is agreeable to try Megace. Will send prescripti on. Will follow up for angela oakley [id number] Hanna Snider PA-C [facility] [address] [facility] [address] [place] [address] 08/10/2024 09:37:37 08/10/2024 10:29:37 Malignant tumor of ascending colon 130444826 C18.2 CT scan of the abdomen and [...] 8.2 hematocrit 29.0. MCV 67.9. Platelet count 166561. Normal cell differenti al. Low serum folate [...] study published in September 2022 in the [place] [facility] of combined Avastin therapy [...] liver lesions. Metastatic malignant neoplasm to liver 34488585 C78.7 CT scan of the abdomen and [...] patient is a candidate for radiation Nausea 928618428 R11.0 As needed Zofran and Phenergan prescribed . Discussed trying scopolamin e patches but her insurance wouldn't cover. She is taking Zofran with relief. Pain due t o neoplastic disease 4153332110 9102 G89.3 She is taking hydrocodon e 7.5 mg b.i.d. Discussed taking medication every 4-6 hours as needed. Anemia 019017936 D64.9 Right-side d colon mass concerning for malignancy . Will assess for any signs of iron deficiency . Hemoglobin previously 8.0. Concern for blood loss from colon mass. Patient reports dark stools. Labs on August 10, 2024 with hemoglobin slightly low at 11.9. She is receiving infusional iron as needed. Adopted 021673961 Z62.89 8 Patient is adopted and discussed hereditary gene panel. Patient does have family history of her son having bladder cancer. [facility] hereditary panel sent Antineopla stic chemotherapy regimen 463981068 Z51.11 Week 1 5FU Leucovorin Vectibix on [...] monitor for tolerabili ty and toxicity. Hypokalemia 97380966 E87 .6 Currently taking for potassium 20 mEq daily. Will follow up labs. Mixed anxi ety and depressive disorder 637092500 F41.8 Patient returns on November 23, 2023. [...] reports depression has improved. Atopic conjunctivitis 23 3181686 H10.12 Conjunctiv itis due to Vectibix. This is improving. Iron defic iency anemia 35409160 D50.9 Currently receiving infusional iron as needed. Will continue to monitor. Insomnia 652292559 G47.0 0 Patient has had difficulty sleeping for most of her life. She has tried multiple medication s without relief. She is tried Mirtazapin e and lorazepam without improvemen t of insomnia. Discussed trying trazodone instead. Restless legs 29990631 G 25.81 Patient taking Requip for restless legs. Generalized rash 3520406 06 R21 Patient with rash due to Vectibix. This is improving. Atrial fibrillation 4943 6004 I48.91 Patient has been diagnosed with congestive heart failure and atrial fibrillati on. She has been started on Coumadin. She is following with the Coumadin clinic at [facility]. Congestive heart failure 66723454 I50.9 Patient has been diagnosed with congestive heart failure. She has started lasix and is following with a cardiologi st. Cachexia 191023245 R64 Patient has had decreased appetite and weight loss. She is drinking nutritiona l supplement s. Discussed appetite stimulant. Patient previously refused. She has started on Megace. Will continue to monitor History of deep vein thrombosis 890066101 Z86.718 Patient developed right lower extremity pain [...] repeat venous duplex. Drug therapy finding 309 797385 Z79.01 She continues on Coumadin due to a fib. She is following with the Coumadin clinic at [facility]. [id number] Hanna Snider PA-C [facility] [address] [facility] [address] [place] [address] 08/25/2024 09:02:23 08/25/2024 09:51:52 Antineoplastic chemotherapy regimen 224967519 Z51.11 Week 1 5FU Leucovorin Vectibix on [...] and toxicity. Malignant tumor of ascending colon 573718721 C18.2 CT scan of the abdomen and [...] 8.2 hematocrit 29.0. MCV 67.9. Platelet count 803203. Normal cell differenti al. Low serum folate [...] study published in September 2022 in the [place] [facility] of combined Avastin therapy [...] liver lesions. Metastatic malignant neoplasm to liver 54616801 C78.7 CT scan of the abdomen and [...] patient is a candidate for radiation Nausea 323548816 R11.0 As needed Zofran and Phenergan prescribed . Discussed trying scopolamin e patches but her insurance wouldn't cover. She is taking Zofran with relief. Pain due t o neoplastic disease 0828838451 9102 G89.3 She is taking hydrocodon e [...] does take her current medication s Anemia 550700397 D64.9 Right-side d colon mass concerning for malignancy . Will assess for any signs of iron deficiency . Hemoglobin previously 8.0. Concern for blood loss from colon mass. Patient reports dark stools. Labs on August 10, 2024 with hemoglobin slightly low at 11.9. She is receiving infusional iron as needed. Adopted 433920463 Z62.89 8 Patient is adopted and discussed hereditary gene panel. Patient does have family history of her son having bladder cancer. [facility] hereditary panel sent Hypokalemia 27358825 E87 .6 Currently taking for potassium 20 mEq daily. Will follow up labs. Mixed anxi ety and depressive disorder 503318476 F41.8 Patient returns on November 23, 2023. [...] reports depression has improved. Atopic conjunctivitis 23 1304380 H10.12 Conjunctiv itis due to Vectibix. This is improving. Iron defic iency anemia 73669107 D50.9 Receiving infusional iron as needed. Will continue to monitor. Insomnia 184992179 G47.0 0 Patient has had difficulty sleeping for most of her life. She has tried multiple medication s without relief. She is tried Mirtazapin e and lorazepam without improvemen t of insomnia. Discussed trying trazodone instead. Restless legs 17500099 G 25.81 Patient taking Requip for restless legs. Generalized rash 3787371 06 R21 Rash due to Vectibix. This has improved. Atrial fibrillation 4943 6004 I48.91 Patient has been diagnosed with congestive heart failure and atrial fibrillati on. She has been started on Coumadin. She is following with the Coumadin clinic at [facility]. Congestive heart failure 12155936 I50.9 Patient has been diagnosed with congestive heart failure. She has started lasix and is following with a cardiologi st. Cachexia 209766448 R64 Patient has had decreased appetite and weight loss. She is drinking nutritiona l supplement s. Discussed appetite stimulant. Patient previously refused. She has started on Megace. She does not like the taste of Megace. Discussed Megace tablets instead of liquid but patient declines at this time. Will continue to monitor History of deep vein thrombosis 774750036 Z86.718 Patient developed right lower extremity pain [...] repeat venous duplex. Drug therapy finding 309 374017 Z79.01 She continues on Coumadin due to a fib. She is following with the Coumadin clinic at [facility]. Acute post traumatic headache 8079806616 01588 G44.319 Patient returns on August 25, 2024. [...] Internatio nal normalized ratio above reference range 889587226 R79.1 Patient returns on August 25, 2024. She is on Coumadin for atrial fibrillati on and her INR is elevated. She is going to the Coumadin Clinic for management . INR 8 today. She is going to hold Coumadin and contact Coumadin Clinic for directions today. Denies any bleeding at this time. [id number] Hanna Snider PA-C [facility] [address] [place] [address] 09/02/2024 11:29:36 09/02/2024 12:07:33 Antineoplastic chemotherapy regimen 271277127 Z51.11 Week 1 5FU Leucovorin Vectibix on [...] follow up. Malignant tumor of ascending colon 120568085 C18.2 CT scan of the abdomen and [...] 8.2 hematocrit 29.0. MCV 67.9. Platelet count 810126. Normal cell differenti al. Low serum folate [...] study published in September 2022 in the [place] [facility] of combined Avastin therapy [...] liver lesions. Metastatic malignant neoplasm to liver 35896062 C78.7 CT scan of the abdomen and [...] patient is a candidate for radiation Nausea 508132198 R11.0 As needed Zofran and Phenergan prescribed [...] ons. Pain due t o neoplastic disease 1685759892 9102 G89.3 She is taking hydrocodon e [...] tab po every 3-4 hours instead. Anemia 538975018 D64.9 Right-side d colon mass concerning for malignancy . Will assess for any signs of iron deficiency . Hemoglobin previously 8.0. Concern for blood loss from colon mass. Patient reports dark stools. Labs on August 10, 2024 with hemoglobin slightly low at 11.9. She is receiving infusional iron as needed. Adopted 955924462 Z62.89 8 Patient is adopted and discussed hereditary gene panel. Patient does have family history of her son having bladder cancer. [facility] hereditary panel sent Hypokalemia 45150020 E87 .6 Currently taking for potassium 20 mEq daily. Will follow up labs. Mixed anxi ety and depressive disorder 428857983 F41.8 Patient returns on November 23, 2023. [...] reports depression has improved. Atopic conjunctivitis 23 1677320 H10.12 Conjunctiv itis due to Vectibix. This is improving. Iron defic iency anemia 67844872 D50.9 Receiving infusional iron as needed. Will continue to monitor. Insomnia 863352402 G47.0 0 Patient has had difficulty sleeping for most of her life. She has tried multiple medication s without relief. She is tried Mirtazapin e and lorazepam without improvemen t of insomnia. Discussed trying trazodone instead. Restless legs 61633078 G 25.81 Patient taking Requip for restless legs. Generalized rash 1696583 06 R21 Rash due to Vectibix. This has improved. Atrial fibrillation 4943 6004 I48.91 Patient has been diagnosed with congestive heart failure and atrial fibrillati on. She has been started on Coumadin. She is following with the Coumadin clinic at [facility]. Congestive heart failure 97852525 I50.9 Patient has been diagnosed with congestive heart failure. She has started lasix and is following with a cardiologi st. Cachexia 663000841 R64 Patient has had decreased appetite and weight loss. She is drinking nutritiona l supplement s. Discussed appetite stimulant. Patient previously refused. She has started on Megace. She does not like the taste of Megace. Discussed Megace tablets instead of liquid but patient declines at this time. Will continue to monitor History of deep vein thrombosis 460814137 Z86.718 Patient developed right lower extremity pain [...] repeat venous duplex. Drug therapy finding 309 174849 Z79.01 She continues on Coumadin due to a fib. She is following with the Coumadin clinic at [facility]. Internatio nal normalized ratio above reference range 746492367 R79.1 Patient returns on August 25, 2024. She is on Coumadin for atrial fibrillati on and her INR is elevated. She is going to the Coumadin Clinic for management . INR 8 today. She is going to hold Coumadin and contact Coumadin Clinic for directions today. Denies any bleeding at this time. Diarrhea 19820301 R19.7 Patient with increased diarrhea, nausea, and vomiting for the past 4 days. She is taking Imodium and Lomotil without relief. She has a history of C diff. Will order stool studies today. Will check stool for C diff today. Dehydration 96233794 E86 .0 Patient returns on September 02, 2024. Patient with increased diarrhea, nausea, and vomiting for the past 4 days. No fever or chills. IV fluids along with Pepcid and Zofran today for dehydratio n. [id number] Hanna Snider PA-C [facility] [address] [facility] [address] [place] [address] 11/01/2024 13:00:10 11/01/2024 13:35:08 Antineoplastic chemotherapy regimen [id number] Z51.11 Week 1 5FU Leucovorin Vectibix on [...] 25, 2024. Malignant tumor of ascending colon [id number] C18.2 CT scan of the abdomen and [...] 8.2 hematocrit 29.0. MCV 67.9. Platelet count 384096. Normal cell differenti al. Low serum folate [...] study published in September 2022 in the [place] [facility] of combined Avastin therapy [...] malignancy . Metastatic malignant neoplasm to liver [id number] C78.7 CT scan of the abdomen and [...] any treatment for her malignancy . Nausea 136129832 R11.0 As needed Zofran and Phenergan prescribed [...] ons. Pain due t o neoplastic disease [id number] 9102 G89.3 Abdominal pain has improved and pain is controlled with current pain medication s. Anemia 399106408 D64.9 Right-side d colon mass concerning for malignancy . Will assess for any signs of iron deficiency . Hemoglobin previously 8.0. Concern for blood loss from colon mass. Patient reports dark stools. Labs on August 10, 2024 with hemoglobin slightly low at 11.9. She is receiving infusional iron as needed. Adopted [id number] Z62.89 8 Patient is adopted and discussed hereditary gene panel. Patient does have family history of her son having bladder cancer. [facility] hereditary panel sent Hypokalemia 10583013 E87 .6 Currently taking for potassium 20 mEq daily. Will follow up labs. Mixed anxi ety and depressive disorder 710908144 F41.8 Patient returns on November 23, 2023. [...] reports depression has improved. Atopic conjunctivitis 23 6739024 H10.12 Conjunctiv itis due to Vectibix. This has improved. Iron defic iency anemia 40688215 D50.9 Receiving infusional iron as needed. Will continue to monitor. Insomnia 015364175 G47.0 0 Patient has had difficulty sleeping for most of her life. She has tried multiple medication s without relief. She is tried Mirtazapin e and lorazepam without improvemen t of insomnia. Discussed trying trazodone instead. Restless legs 79509962 G 25.81 Patient taking Requip for restless legs. Generalized rash 8374552 06 R21 Rash due to Vectibix. This has improved. Atrial fibrillation 4943 6004 I48.91 Patient has been diagnosed with congestive heart failure and atrial fibrillati on. She has been started on Coumadin. She is following with the Coumadin clinic at [facility]. Congestive heart failure 41737219 I50.9 Patient has been diagnosed with congestive heart failure. She has started lasix and is following with a cardiologi st. Cachexia 976385240 R64 Patient has had decreased appetite and weight loss. She is drinking nutritiona l supplement s. Discussed appetite stimulant. Patient previously refused. She has started on Megace. She does not like the taste of Megace. Discussed Megace tablets instead of liquid but patient declines at this time. Will continue to monitor History of deep vein thrombosis 467159122 Z86.718 Patient developed right lower extremity pain [...] repeat venous duplex. Drug therapy finding 309 128582 Z79.01 She continues on Coumadin due to a fib. She is following with the Coumadin clinic at [facility]. Candidiasis of skin 4988 3006 B37.2 Patient has intermitte nt rash consistent with candidiasi s under her breasts folds. Will send prescripti on for nystain powder to use as needed. [id number] Hanna Snider PA-C [facility] [address] [facility] [address] [place] [address] 11/30/2024 10:57:07 11/30/2024 11:54:59 Antineoplastic chemotherapy regimen [id number] Z51.11 Week 1 5FU Leucovorin Vectibix on [...] 25, 2024. Malignant tumor of ascending colon 087536487 C18.2 CT scan of the abdomen and [...] 8.2 hematocrit 29.0. MCV 67.9. Platelet count 997146. Normal cell differenti al. Low serum folate [...] in the chest. No evidence of lymphadeno espernaza or pulmonary nodules. Imaging of the abdomen [...] study published in September 2022 in the [place] [facility] of combined Avastin therapy with [place]. Phase 3 trial with median overall survival of 10.8 months in combinatio n therapy verses 7.5 months L[place]urf alone. Progressio n-free survival 5.6 months versus 2.4 months in [place] alone therapy. Patient does not want to proceed with any chemothera py. She does not want to do any treatment for her malignancy . Metastatic malignant neoplasm to liver 49105896 C78.7 CT scan of the abdomen and [...] any treatment for her malignancy . Nausea 824705795 R11.0 As needed Zofran and Phenergan prescribed . Discussed trying scopolamin e patches but her insurance wouldn't cover. Discussed starting Ativan and Reglan is needed for nausea and vomiting. Pain due t o neoplastic disease [id number] 9102 G89.3 Abdominal pain has improved and pain is controlled with current pain medication s. Anemia 168022790 D64.9 Right-side d colon mass concerning for malignancy . Will assess for any signs of iron deficiency . Hemoglobin previously 8.0. Concern for blood loss from colon mass. Patient reports dark stools. Labs on August 10, 2024 with hemoglobin slightly low at 11.9. She is receiving infusional iron as needed. Adopted [id number] Z62.89 8 Patient is adopted and discussed hereditary gene panel. Patient does have family history of her son having bladder cancer. [facility] hereditary panel sent Hypokalemia 30749275 E87 .6 Currently taking for potassium 20 mEq daily. Will follow up labs. 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 [...] reports depression has improved. Atopic conjunctivitis 23 8169285 H10.12 Conjunctiv itis due to Vectibix. This has improved. Iron defic iency anemia 60527823 D50.9 Receiving infusional iron as needed. Will continue to monitor. Insomnia 538326320 G47.0 0 Patient has had difficulty sleeping for most of her life. She has tried multiple medication s without relief. She is tried Mirtazapin e and lorazepam without improvemen t of insomnia. Discussed trying trazodone instead. Restless legs 08233995 G 25.81 Patient taking Requip for restless legs. Generalized rash 1146821 06 R21 Rash due to Vectibix. This has improved. Atrial fibrillation 4943 6004 I48.91 Patient has been diagnosed with congestive heart failure and atrial fibrillati on. She has been started on Coumadin. She is following with the Coumadin clinic at [facility]. Congestive heart failure 65214865 I50.9 Patient has been diagnosed with congestive heart failure. She has started lasix and is following with a cardiologi . Cachexia 334180247 R64 Patient has had decreased appetite and weight loss. She is drinking nutritiona l supplement s. Discussed appetite stimulant. Patient previously refused. She has started on Megace. She does not like the taste of Megace. Discussed Megace tablets instead of liquid but patient declines at this time. Will continue to monitor History of deep vein thrombosis 644432824 Z86.718 Patient developed right lower extremity pain [...] repeat venous duplex. Drug therapy finding 309 538253 Z79.01 She continues on Coumadin due to a fib. She is following with the Coumadin clinic at [facility]. Candidiasis of skin 4988 3006 B37.2 Patient has intermitte nt rash consistent with candidiasi s under her breasts folds. She has nystain powder to use as needed. Dehydration 91165191 E86 .0 Patient returns on November 30, 2024. Patient feels dehydrated today. She did not drink much water yesterday. Her appetite is fair and weight is stable. Will give 1 L IV fluids today. Health Concerns Section Related Observation LastModified by Organization Detai ls LastModified Time None Recorded Concern Status LastModified by Organization Details LastModified Time None Recorded Advance Directives Directive None Recorded Payers Insurance Date Sequence Insurance Name Policy Number Policy Bell Covered Member ID Bell Member ID Guarantor Name 06/02/2023 [place] Vicky Roblero [id number] Vicky Roblero 06/02/2023 1 [employer] (MEDICARE SUPPLEMENT) Vicky Roblero [id number] Vicky Roblero 11/26/2024 2 [employer] Vicky Roblero [id number] Vicky Roblero 06/02/2023 1 MEDICARE [place]: [place] Vicky Roblero [id number] Vicky Roblero 06/02/2023 2 [employer] (MEDICARE SUPPLEMENT) Vicky Roblero [id number] Vicky Roblero 11/29/2024 1 [place] Vicky Roblero [id number] Vicky Roblero Notes Date Note Type Note Provider Name and Address Organization Details Recorded Time 08/10/2024 text/html 78 yo F returns for evaluation of metastatic colon cancer. Patient recently seen on February 17, 2023 in the emergency room at [facility] with abdominal pain. Patient reported [...] 8.2 hematocrit 29.0. MCV 67.9. Platelet count 228131. Normal cell differential. Low serum folate of [...] with metastatic colorectal cancer. Discussed chemotherapy with [place] based regimen with 5FU Leucovorin if [...] is following with the Coumadin clinic at [facility]. She is scheduled for cardiac [...] study published in September 2022 in the [place] [facility] of combined Avastin therapy [...] for tolerability and toxicity. Hanna Snider PA-C [address], [place], [address], [facility] 08/10/2024 11:13:32 08/25/2024 text/html 78 yo F returns for evaluation of metastatic colon cancer. Patient recently seen on February 17, 2023 in the emergency room at [facility] with abdominal pain. Patient reported [...] 8.2 hematocrit 29.0. MCV 67.9. Platelet count 893792. Normal cell differential. Low serum folate of [...] with metastatic colorectal cancer. Discussed chemotherapy with [place] based regimen with 5FU Leucovorin if [...] is following with the Coumadin clinic at [facility]. She is scheduled for cardiac [...] study published in September 2022 in the [place] [facility] of combined Avastin therapy [...] for tolerability and toxicity. Hanna Snider PA-C [address], [place], [address], [facility] & [place] 08/25/2024 10:43:13 09/02/2024 text/html 78 yo F returns for evaluation of metastatic colon cancer. Patient recently seen on February 17, 2023 in the emergency room at [facility] with abdominal pain. Patient reported [...] 8.2 hematocrit 29.0. MCV 67.9. Platelet count 682926. Normal cell differential. Low serum folate of [...] with metastatic colorectal cancer. Discussed chemotherapy with [place] based regimen with 5FU Leucovorin if [...] is following with the Coumadin clinic at [facility]. She is scheduled for cardiac [...] study published in September 2022 in the [place] [facility] of combined Avastin therapy [...] cycle. Will follow up. Hanna Snider PA-C [address], [place], [address], [facility] [[email or web address] - [place] - [place] & [place] 09/02/2024 12:55:35 11/01/2024 text/html 79 yo F returns for evaluation of metastatic colon cancer. Patient recently seen on February 17, 2023 in the emergency room at [facility] with abdominal pain. Patient reported [...] 8.2 hematocrit 29.0. MCV 67.9. Platelet count 259575. Normal cell differential. Low serum folate of [...] with metastatic colorectal cancer. Discussed chemotherapy with [place] based regimen with 5FU Leucovorin if [...] is following with the Coumadin clinic at [facility]. She is scheduled for cardiac [...] study published in September 2022 in the [place] [facility] of combined Avastin therapy [...] to have if needed. Hanna Snider PA-C [address], [place], [address], [place] [facility] - [place] & [place] 11/01/2024 13:57:44 11/30/2024 text/html 79 yo F returns for evaluation of metastatic colon cancer. Patient recently seen on February 17, 2023 in the emergency room at [facility] with abdominal pain. Patient reported [...] 8.2 hematocrit 29.0. MCV 67.9. Platelet count 013958. Normal cell differential. Low serum folate of [...] with metastatic colorectal cancer. Discussed chemotherapy with [place] based regimen with 5FU Leucovorin if [...] is following with the Coumadin clinic at [facility]. She is scheduled for cardiac [...] study published in September 2022 in the [place] [facility] of combined Avastin therapy [...] 3-4 hours instead. Patient presented to the ED September 2024 with increased abdominal pain. CT of the abdomen pelvis with evidence of diverticulitis and progressive hepatic metastatic disease with enlarging periportal adenopathy. Patient returns on November 30, 2024. Patient feels dehydrated today. She did not drink much water yesterday. Her appetite is fair and weight is stable. She has been slurring her words a little today but she is alert and oriented x3. No other concerns at this time. Will give 1 L IV fluids today. Abdominal pain has improved and pain is [...] let me know when she is ready. Will follow up labs today. Hanna Snider PA-C [address], [place], [address], [facility] - [place] & [place] 11/30/2024 13:22:42 OBGyn Episode No OBEpisode recorded.
--- OUTSIDE RECORDS SUMMARY | 2024-12-12 13:37 | XMS_ITS | Clinical Summary ---
Author Organization [facility]. [facility] Address [address] [place] [address] Phone Care Team Providers Care Mortgage Broker Name Role Phone Luis Villasenor MD Unavailable [phone] Luis Villasenor MD Primary Care Provider [phone] Allergies Active Allergy Reactions Criticality Noted Date [...] sodium chloride 0.9% 120ml IVPB 20 mL 12/06/19 25 025 Active Hospital, Clinic, or Other Facility Administered Medication Ordered Dose Route Frequency Start Date End Date Status cyanocobalamin injection 1,000 mcgIndications:Cobalamin deficiency 1000 mcg IM ONCE 11/14/2024 11/14/2024 Ended Active Problems Patient Care Coordination No te Formatting of this note migh t be different from the original. PATIENT REFUSES ALL IMMUNIZATIONS AND SCREENINGS. 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 04/2023, R hemicolectomy and anastomosis, pathology of invasive moderately differentiated adenocarcinoma. Metastatic adenocarcinoma in 2/10 lymph nodes. Wedge resection of the liver with metastatic adenocarcinoma consistent with colon primary. Discontinued treatment early 2024 per patient decision Managed by [facility] Oncology and Hematology Assessment & Plan (10/02/2024 10:12 PM EDT): - has active disease - managed by Oncology -has stopped treatment 07/2024 Assessment & Plan (06/14/2024 9:41 PM EST): - has active disease - currently undergoing chemotherapy / immunotherapy - managed by Oncology, [facility] Oncology and Hematology Malignant tumor of ascending colon 06/14/2024 Overview (06/14/2024): CT scan 01/2023 with multiple masses of liver and ascending colon thickening. 04/2023, R hemicolectomy and anastomosis, pathology of invasive moderately differentiated adenocarcinoma. Metastatic adenocarcinoma in 2/10 lymph nodes. Wedge resection of the liver with metastatic adenocarcinoma consistent with colon primary. Continues with chemotherapy [id number]. 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, Dr. Youngblood, cardiology. Taking 5mg // and 2.5mg other days Paroxysmal atrial fibrillation 06/14/2024 Overview (06/14/2024): Dr. Youngblood, cardiology, 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 Decrease starches like bread [...] Encounters Date Type Department Care Team Description 12/05/2024 Orders Only [address] [place] [address] Pau Gray, RMA 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 due to chronic blood loss 12/01/[address] [place] [address] Luis Villasenor MD Follow Up (Need diagnosis code on infusion order - ok to handwrite on order - please fax to [phone]) 11/30/2024 Orders Only [address] [place] [address] Pau Gray, RMCarlos 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 due to chronic blood loss 11/28/2024 Orders Only [address] [place] [address] Amarilis Nolan APRN 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 due to chronic blood loss (Primary Dx) 11/25/[address] [place] [address] Amarilis Nolan APRN Orders 11/14/2024 9:00 AM EDT Office Visit [address] [place] [address] Amarilis Nolan, MIGUEL ANGEL 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) (Primary Dx); History of DVT (deep vein thrombosis); Paroxysmal atrial fibrillation (HCC); Cobalamin deficiency; Flank pain; Dehydration; Blood loss 11/11/2024 Orders Only [address] [place] [address] Aamrilis Nolan APRN Flank pain (Primary Dx); Blood loss; Dehydration 11/04/2024 11:15 AM EDT Office Visit [address] [place] [address] Amarilis Nolan APRN Diverticulitis of large intestine without perforation or abscess without bleeding (Primary Dx); Peripheral edema; Malignant tumor of ascending colon (HCC); 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 ///) 10/11/[address] [place] [address] Luis Villasenor MD Other (FYI- pt is wanting palliative care, home health asking if pcp would like to do this. ) 10/07/[address] [place] [address] Luis Villasenor MD Orders (VO for OT) 09/30/[address] [place] [address] Luis Villasenor MD Orders (SN,verbal ) 09/26/2024 1:00 PM EDT Office Visit [address] 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 [address] Amarilis Nolan APRN Other (Calling with INR results from ); Patient Returning Call (Check status of INR message); Follow Up ( requesting call back from office with patient's production repairer 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 Please advise) from Last 3 Months Immunizations Immunization Administration Dates Next Due Pneumococcal Conjugate Vaccine 13 Valent 015 Pneumococcal Polysaccharide 23 Valent 12/04/2016 Tdap 01/20/2011 01/20/2021 Surgical History Surgery Date Site/Laterality Comments HYSTERECTOMY secondary to uterine fibroids TONGUE SURGERY benign tumor removed CARDIAC CATHETERIZATION CATARACT REMOVAL 07/09/2013 Left LEFT EYE CATARACT EXTRACTION WITH PHACOEMULSIFICATION AND INTRAOCULAR LENS; Surgeon: Keith Lynn MD; Location: [facility]; Service: Ophthalmology Medical devices from this surgery are in the Medical Devices section. CATARACT REMOVAL 08/03/2013 Eye/Right RIGHT EYE CATARACT EXTRACTION WITH PHACOEMULSIFICATION AND INTRAOCULAR LENS ; Surgeon: Keith Lynn MD; Location: [facility]; Service: Ophthalmology Medical devices from this [...] (do not resuscitate) 2014 Living will, counseling/discussion 2014 Family History * Patient is adopted Relation [...] [place] [facility] Medical Devices Implanted Type Area Outpatient Coordinator Device Identifier Shelf Expiration Date Model / Serial / Lot Lens Intraocular 23.0 Diopter Acrysof Iq 13.0mm Length 6.0mm - [id number] Implanted:Qty: 1 on 07/09/2013 by Keith Lynn MD at [facility] Left: Eye [facility] 01/30/2018 [id number]-27. 0 / [id number] / Lens Intraocular 23.5 Diopter Acrysof Iq 13.0mm Length 6.0mm - [id number] Implanted:Qty: 1 on 08/03/2013 by Keith Lynn MD at [facility] Right: Eye [facility] 03/01/2018 [id number]-27. 5 / [id number] / Procedures Procedure Name Priority Date/Time [...] mcg/dL 11/14/2024 4:07 PM EDT PREFERRED [facility] [employer] [facility] Transferrin 153(L) 200 - 360 mg/dL 11/14/2024 4:07 PM EDT [facility]REF[facility]ED [facility] [employer] [facility] Transferrin Saturation 12(L) 20 - 50 % 11/14/2024 4:07 PM EDT [facility] TIBC 214(L) 250 - 400 mcg/dL 11/14/2024 4:07 PM EDT [facility]REF[facility]ED [facility] [facility] Blood VENOUS BLOOD / Unknown Venipuncture / Unknown 11/14/2024 10:07 AM EDT 11/14/2024 10:07 AM EDT Amarilis Nolan DEPARTMENT STORE SALESPERSON CHEMISTRY ORDERABLES Kell l Result [facility]REFERRED [facility] [employer] [facility] [address] [facility] , [address] [place] [id number] * VITAMIN B12/ FOLIC ACID (11/14/2024 10:07 AM EDT) Vitamin B12 801 232 - 1,245 pg/mL 11/14/2024 4:02 PM EDT [facility]REFERRED [facility] Folate 9.89 >=4.80 ng/mL 11/14/2024 4:02 PM EDT [facility]REFERRED [facility] [facility] Blood VENOUS BLOOD / Unknown Venipuncture / Unknown 11/14/2024 10:07 AM EDT 11/14/2024 10:07 AM EDT Narrative [facility]REFERRED [facility] [employer] [facility] - 11/14/2024 4:02 PM EDT Ingestion of rocio doses of biotin (>5 mg/day) taken within 8 hours of drawing blood sample can interfere with this immunoassay test. us Amarilis Terrie Nolan DEPARTMENT STORE SALESPERSON CHEMISTRY ORDERABLES Kell orlando Result [facility] [address] [facility] , [address] [place] [id number] * (ABNORMAL) CBC WITH DIFF (11/14/2024 10:07 [...] [facility], [facility] [place] Percent 8.3 % 11/14/2024 3:44 PM EDT [facility] Eos Percent 3.5 % 11/14/2024 3:44 PM EDT [facility] Baso Percent 0.6 % 11/14/2024 3:44 PM EDT [facility] Neut # 7.7(H) 1.6 - 6.1 x10(3)/[facility] 11/14/2024 3:44 PM EDT [facility] Comment:Neutrophils equals s egs plus bands IMMGRAN# 0.1 0.0 - 0.1 x10(3)/[facility] 11/14/2024 3:44 PM EDT [facility] Comment:Automated count of m etamyelocytes, myelocytes and promyelocytes. An absolute IG <0.1 is reported as 0.0. Lymph # 1.0(L) 1.2 - 3.9 x10(3)/[facility] 11/14/2024 3:44 PM EDT [facility] [place] # 0.8 0.3 - 0.9 x10(3)/[facility] 11/14/2024 3:44 PM EDT [facility], [facility] Eos# 0.4 0.0 - 0.5 x10(3)/[facility] 11/14/2024 3:44 PM EDT [facility], [facility] Baso # 0.1 0.0 - 0.1 x10(3)/[facility] 11/14/2024 3:44 PM EDT [facility], [facility] Blood VENOUS BLOOD / Unknown Venipuncture / Unknown 11/14/2024 10:07 AM EDT 11/14/2024 10:07 AM EDT us Amarilis Nolan APRN HEMATOLOGY ORDERABLES Fin al Result [facility] [address] [facility] , [place] [address] * (ABNORMAL) FERRITIN (11/14/2024 10:07 AM EDT) Ferritin 728(H) 30 - 150 ng/mL 11/14/2024 4:07 PM EDT [facility], [facility] Comment:The lower threshold [...] 11/14/2024 10:07 AM EDT Narrative [facility]ED [facility] - 11/14/2024 4:07 PM EDT Ingestion of rocio doses of biotin (>5 mg/day) taken within 8 hours of drawing blood sample can interfere with this immunoassay test. us Amarilis Nolan DEPARTMENT STORE SALESPERSON CHEMISTRY ORDERABLES Kell orlando Result PREFERRED [facility], [facility] [address] [facility] , [place] [address] * (ABNORMAL) COMPREHENSIVE METABOLIC PANEL (11/14/2024 10:07 [...] mg/dL 11/14/2024 4:07 PM EDT [facility], [facility] Creatinine 1.38(H) 0.51 - 1.30 mg/dL 11/14/2024 4:07 PM EDT [facility]ED [facility], [facility] Albumin 3.4 3.2 - 4.6 gm/dL 11/14/2024 4:07 PM EDT [facility]REF[facility]ED [facility], [facility] Total Protein 7.8 6.4 - 8.3 gm/dL 11/14/2024 4:07 PM EDT [facility]REF[facility]ED LAB [facility], [facility] Bili Total 0.6 0.2 - 1.3 mg/dL 11/14/2024 4:07 PM EDT [facility] ALT <5 <=41 U/L 11/14/2024 4:07 PM EDT [facility]ED [facility], [facility] AST 23 <=40 U/L 11/14/2024 4:07 PM EDT [facility], [facility] Alk Phos 465(H) 36 - 123 U/L 11/14/2024 4:07 PM EDT [facility], [facility] eGFR (CKD-EPIcr 2020) 39(L) >=60 mL/min/1.7 3 m2 11/14/2024 4:07 PM EDT [facility], [facility] Comment:Estimated GFR was ca lculated using the CKD-EPIcr (2020) equation refit without race. The equation is recommended by the National Kidney Foundation - [place] Society of Nephrology Task Force. Blood VENOUS BLOOD / Unknown Venipuncture / Unknown 11/14/2024 10:07 AM EDT 11/14/2024 10:07 AM EDT us Amarilis Nolan DEPARTMENT STORE SALESPERSON CHEMISTRY ORDERABLES Kell l Result [facility], [facility] [address] [facility] , [place] [address] * URINE CULTURE (NO STAIN) (10/26/2024 11:17 AM EDT) Culture Multiple bacterial species isolated from urine consistent with urogenital commensal organisms. 10/27/2024 10:23 PM EDT [facility], [facility] Urine STRUCTURE OF URINARY TRACT PROPER / Unknown 10/26/2024 11:17 AM EDT 10/26/2024 11:17 AM EDT us Amarilis Nolan DEPARTMENT STORE SALESPERSON MICROBIOLOGY - GENERAL OR DERABLES Final Result [facility], [facility] 1 [facility], [place] [address] * (ABNORMAL) SEP URINALYSIS POC (10/26/2024 11:14 [...] OF CARE TEST ORDERABLES Fi nal Result [facility] [place] [address] [place] [address] * (ABNORMAL) HEMOGLOBIN A1C (09/08/2022 2:38 PM EDT) Hgb A1C 7.3(H) 4.2 - 5.6 % 09/08/2022 8:16 PM EDT PREFERRED [facility] Est. Avg Glucose 163 mg/dL 09/08/2022 8:16 PM EDT [facility] Blood VENOUS BLOOD / Unknown Venipuncture / Unknown 09/08/2022 2:38 PM EDT 09/08/2022 2:38 PM EDT Narrative PREFERRED [facility] - 09/08/2022 8:16 PM EDT REFERENCE RANGE: Normal: 4.0-5.6% Pre-diabetes: 5.7-6.4% Provisional diagnosis of diabetes: >6.4% Hgb F>10% and anything which shortens red cell survival, such as hemolytic anemia, or unstable hemoglobin variants such as HbSS, HbSC, or HbCC, will lower the HbA1c value associated with a given level of glycemic control. us Luis Villasenor MD CHEMISTRY ORDERABLES Final Result [facility] [address] [facility] , [place] [address] * LIPID PANEL REFLEX (02/09/2020 9:38 AM EDT) Cholesterol 157 <200 mg/dL 02/09/2020 4:17 PM EDT [facility] Comment: < 200 Desirable 200 - 239 Borderline High >= 240 High Triglyceride 85 <150 mg/dL 02/09/2020 4:17 PM EDT [facility] Comment: < 150 Normal 150 - 199 Borderline High 200 - 499 High >= 500 Very High HDL 41 >=40 mg/dL 02/09/2020 4:17 PM EDT [facility] Comment: > 60 Optimal 40 - 60 Acceptable < 40 Low LDL Calculated 99 <100 mg/dL 02/09/2020 4:17 PM EDT [facility] Non-HDL-C Calculated 116 <=129 mg/dL 02/09/2020 4:17 PM EDT PREFERRED LAB [facility] Comment: <130 Desirable 130-159 Above Desirable 160-189 Borderline High 190-219 High >= 220 Very High Fasting Specimen? Yes None 020 4:17 PM EDT [facility] Blood VENOUS BLOOD / Unknown Venipuncture / Unknown 02/09/2020 9:38 AM EDT 02/09/2020 9:42 AM EDT Luis Villasenor MD CHEMISTRY ORDERABLES Final Result [facility] [address] [facility], [place] [address] * HEPATITIS C ANTIBODY - SCREENING (12/04/2016 11:16 AM EDT) Hep C Ab Negative Negative [facility] Blood specimen (specimen) UPPER LIMB STRUCTURE / Unknown 12/04/2016 11:16 AM EDT 12/04/2016 4:52 PM EDT Luis Villasenor MD HEMATOLOGY ORDERABLES Final Result [facility] [address] [place] [address] from Last 3 Months or Most Recently Relevant to Health Maintenance Insurance MEDICARE [place] PART A AND B [employer] [facility] MEDICARE [place] PART [facility] AND B [facility] MEDICARE [place] PART A AND B [employer] Advance Directives For more information, please contact: [phone] * Full Code (Latest Code Status on File) Date Activated Date Inactivated Comments 10/28/2018 11:51 AM 10/28/2018 9:26 PM Care Teams Mortgage Broker Relationship Specialty Start Date End Date Luis [place] [address] [place] [phone] PCP - OBGYN 01/09/10 Luis Villas[place] [address] [place] [address] PCP - General 01/09/10
--- OUTSIDE RECORDS SUMMARY | 2024-12-12 13:38 | XMS_ITS | Encounter Summary ---
Author Organization [place] [address] Care Team Providers Care Manager Military Name Role Phone Luis Villasenor MD Unavailable [phone] Luis Villasenor MD Primary Care Provider Encounter Details Date Type Department Care Team (Late Contact Info) Description 11/28/2024 Orders Only [facility] Sarah [address] [place] [phone] Amarilis Nolan, PHARMACY DISTRICT MANAGER [address] [place] [address] 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 due to chronic [...] as of this encounter Care Teams Manager Military Relationship Specialty Start Date End Date Luis Villasenor MD [address] [place] [phone] PCP - OBGYN 01/09/10 Luis Villasenor MD [address] [place] [address] PCP - General 01/09/10 documented as of this encounter
--- OUTSIDE RECORDS SUMMARY | 2024-12-12 13:38 | XMS_ITS | Encounter Summary ---
Author Organization [place] [address] Care Team Providers Care Aquaculture Director Name Role Phone Luis Villasenor MD Unavailable [phone] Luis Villasenor MD Primary Care Provider Encounter Details Date Type Department Care Team (Late st Contact Info) Description 09/26/2010 Orders Only [facility] [address] [place] [address] Jennifer Nagel MD [address] [place] [address] Social History Tobacco Use Types Packs/Day Years [...] a practice prior to that practice using [facility] for Medical Records. Performing Provider: JENNIFER NAGEL Jennifer Nagel MD IMG ECHO ORDERABLES Final Result documented in this encounter Visit Diagnoses Not on filedocumented in this encounter Care Teams Aquaculture Director Relationship Specialty Start Date End Date Luis Villasenor MD [address] [place] [address] PCP - OBGYN 01/09/10 Luis Villasenor MD [address] [place] [address] PCP - General 01/09/10 documented as of this encounter
--- OUTSIDE RECORDS SUMMARY | 2024-12-12 13:38 | XMS_ITS | Encounter Summary ---
Author Organization [place] [address] Care Team Providers Care E Learning Developer Name Role Phone Luis Villasenor MD Unavailable [phone] Luis Villasenor MD Primary Care Provider Reason for Visit * Reason Onset Date Comments Orders 11/25/2024 Encounter Details Date Type Department Care Team (Late Contact Info) Description 11/25/2024 Telephone [facility] Sarah [address] [place] [address] Amarilis Nolan, SECURITY COMPLIANCE SPECIALIST [address] [place] [address] Orders Social History Tobacco Use Types [...] as of this encounter Care Teams E Learning Developer Relationship Specialty Start Date End Date Luis Villasenor MD [address] [place] [phone] PCP - OBGYN 01/09/10 Luis Villasenor MD [address] [place] [phone] PCP - General 01/09/10 documented as of this encounter
[2024-12-12 13:40] LABS: Hematocrit 28.0 % (37.0-47.0); Hemoglobin 8.8 g/dL (12.2-16.2); Immature Granulocytes % 0.6 %; Mean Corpuscular HGB Conc 31.4 g/dL (31.8-35.4); Mean Corpuscular Hemoglobin 26.6 pg (27.0-31.2); Mean Corpuscular Volume 84.6 fl (81-99); Nucleated Red Blood Cells % 0 %; Platelet Count 266 K/mm3 (142-424); Red Blood Count 3.31 M/mm3 (4.20-5.40); Red Cell Distribution Width-SD 47.9 fL; White Blood Count 14.3 K/mm3 (4.8-10.8)
[2024-12-12 13:45] LABS: Albumin Level 3.1 g/dl (3.5-5.0); Chloride 93 mmol/L (98-107); Potassium 4.8 mmoL/L (3.5-5.1); Sodium 127 mmol/L (136-145)
[2024-12-12 13:48] LABS: Alanine Aminotransferase 19 U/L (12-78); Albumin/Globulin Ratio 0.8 (1.1-1.8); Alkaline Phosphatase 553 U/L (38-126); Anion Gap 12.8 mEq/L (5-15); Aspartate Amino Transferase 122 U/L (14-36); Bilirubin,Total 1.1 mg/dl (0.2-1.3); Blood Urea Nitrogen 45 mg/dl (7-17); Calcium 8.7 mg/dl (8.4-10.2); Carbon Dioxide 26 mmol/L (22.0-30.0); Creatinine Clearance Estimated 23 mL/min (50-200); Creatinine,Serum 2.80 mg/dl (0.52-1.04); Estimated Glomerular Filt Rate 16 ml/min (>60); GFR (African American) 20 ML/MIN (>60); Globulin 3.9 g/dL (1.3-3.2); Glucose 112 mg/dl (74-100); Lipase 24 U/L (23-300); Magnesium 2.4 mg/dl (1.6-2.3); Total Protein,Serum 7.0 g/dl (6.3-8.2)
[2024-12-12] MEDS: 0.9 % SODIUM CHLORIDE 1000ML 1,000 ML 999 ML IV (13:49)
[2024-12-12] MEDS: ONDANSETRON 4MG/2ML VIAL 4 MG IV (13:51)
[2024-12-12] MEDS: SODIUM CHLORIDE 0.9% 10ML VIAL 8 ML IV (13:52)
[2024-12-12] MEDS: FAMOTIDINE 20MG/2ML VIAL 20 MG IV (13:52)
[2024-12-12 13:58] LABS: NT Pro Brain Natriuretic Pep. 3590 pg/mL (0-450)
[2024-12-12 14:04] LABS: Troponin I < 0.01 ng/ml (0.00-0.034)
--- NOTE | 2024-12-12 14:36 | PC.NURSE ---
SOCK KNITTER NOTIFIED OF ADMISSION
--- NOTE | 2024-12-12 14:56 | PC.NURSE ---
REPORT CALLED TO MAYA SAHNI
--- NOTE | 2024-12-12 15:16 | HMH.PHAINT1 ---
Pharmacy Intervention Comments: MEDICATION RECONCILIATION COMPLETED ON PATIENT USING EXTERNAL FILL HISTORY FROM PHARMACY, JORJE REPORT, AND ACC NOTE.
[2024-12-12 15:19] LABS: Prothrombin Time 90.0 seconds (10.1-12.5)
[2024-12-12 15:21] LABS: INR 8.00 (0.9-1.1)
--- NOTE | 2024-12-12 15:45 | PC.NURSE ---
arrived by w/c from ED
--- NOTE | 2024-12-12 16:43 | P.HP_ITS ---
<Statement entered by Jim Landry MD - 12/18/24 08:58> Personally examined patient and agree with plan of care as outlined by the CLINICAL INFORMATICS MANAGER. History of Present Illness *Admission Date: 12/12/24 *Reason for visit:: ANMOL, hyponatremia *History of present illness: Ms. Roblero is a 79-year-old female who presented to the emergency department today with nausea, vomiting, weakness. She has a significant medical history of metastatic colon cancer, metastasis to the liver, A-fib, ANMOL, PE, DVT, CHF. She has had multiple hospitalizations recently due to increased illness related to her metastatic colon cancer. Hospice discussions have been initiated, but patient is not interested at this time. She is currently still seeing her oncologist for pain control medication, but is not receiving any chemotherapy or radiation. [facility] Disclaimer: The information contained in this section may have been updated after the patient was seen, as this information can be updated by other users. Medical History Hx of deep venous thrombosis Hx pulmonary embolism Interatrial cardiac shunt PAF (paroxysmal atrial fibrillation) Palpitations Colon cancer metastasized to liver Social History Smoking Status: Never smoker alcohol intake: never current occupational status: other Travel in the last 8 weeks?: None Have you lived/traveled outside [place] in past 30 days?: No Contact w/someone who lives/traveled outside US past 30 days?: No Exposure to someone with infectious disease in past 14 days?: No Do you have a fever (greater than 100.4 F or 38 C)?: No Have you tested positive for COVID-19?: No Exposed to someone with COVID-19 in past 14 days?: No Do you have a sore throat?: No Do you have a cough?: No Do you have any weakness?: No Do you have any diarrhea?: No Are you experiencing any unusual bleeding?: No Do you have any muscle aches/pain?: No Do you have any abdominal pain?: No Are you experiencing loss of taste or smell?: No Other Medical History Have you received the Flu Vaccine for this season: No Have you received the Pneumonia Vaccine: Yes Review of Systems Review of Systems Review of systems:: pertinent systems reviewed and negative unless documented below Constitutional Constitutional: Reports fatigue, Reports poor appetite, Reports lethargy, Reports malaise and Reports weakness ENT Comments: Hemangioma of tongue *Cardiovascular Cardiovascular: Denies chest pain and Denies dyspnea *Respiratory Respiratory: Denies cough and Denies dyspnea *Gastrointestinal Gastrointestinal: Denies abdominal pain, Denies change in bowel habits, Denies constipation and Denies heartburn *Genitourinary Genitourinary: Denies dysuria and Reports urinary incontinence *Musculoskeletal Musculoskeletal: Reports muscle weakness Integumentary/Breasts Skin/Breast: Reports wounds (Coccyx) *Neurologic Neurologic: Reports weakness Endocrine Endocrine: Reports fatigue Meds Home Medications and Allergies Home Medications ?Medication ?Instructions ?Recorded ?Confirmed ?Type potassium chloride 20 mEq 20 meq PO DAILY 07/14/24 History tablet,extended release nystatin 100,000 unit/gram topical 1 applic topical BI DP PRN Rash 09/20/24 12/12/24 History powder (Nystop) hydrocodone 10 mg-acetaminophen 1 - 2 tab PO Q4HP PRN Moderate 12/12/24 12/12/24 History 325 mg tablet Pain (Scale Score 5-6) ondansetron 8 mg disintegrating 8 mg PO TIDP PRN Nause a And 12/12/24 12/12/24 History tablet Vomiting spironolactone 25 mg tablet 25 mg PO DAILY 12/12/24 History warfarin 2 mg tablet (Jantoven) 2 mg PO DAILY 12/12/24 12/12/24 History New Prescriptions to Start Prescriptions: Allergies Allergy/AdvReac Type Severity Reaction Status Date / Time tetracycline Allergy Rash Verified 09/19/24 14:19 Exam Data for Last 24 hours Vital signs and Labs for Last 24 Hours: Temp Pulse Resp BP Pulse Ox O2 Del Method O2 Flow Rate 97.7 F 71 18 92/52 L 100 Room Air 2 12/12/24 16:00 12/12/24 16:00 12/12/24 16:00 12/12/24 16:00 12/12/24 16:00 12/12/24 16:00 12/12/24 15:11 Laboratory Results - last 24 hr 12/12/24 13:31: WBC 14.3 H, RBC 3.31 L, Hgb 8.8 L, Hct 28.0 L, MCV 84.6, MCH 26.6 L, MCHC 31.4 L, RDW 15.6, Plt Count 266, MPV 9.4, Neut % (Auto) 84.5 H, Lymph % (Auto) 7.8 L, [place] % (Auto) 6.4, Eos % (Auto) 0.4, Baso % (Auto) 0.3, Neut # (Auto) 12.1 H, Lymph # (Auto) 1.1, Glenn # (Auto) 0.9, Eos # (Auto) 0.1, Baso # (Auto) 0.0, PT 90.0 H, INR 8.00 H, Sodium 127 L, Potassium 4.8, Chloride 93 L, Carbon Dioxide 26, Anion Gap 12.8, BUN 45 H, Creatinine 2.80 H, Estimated Creat Clear 23, Estimated GFR 16 L*, Est GFR ( Amer) 20 L, Glucose 112 H, Calcium 8.7, Magnesium 2.4 H, Total Bilirubin 1.1, AST 122 H, ALT 19, Alkaline Phosphatase 553 H, Troponin I < 0.01, NT-Pro-B Natriuret Pep 3590 H, Total Protein 7.0 D, Albumin 3.1 L, Globulin 3.9 H, Albumin/Globulin Ratio 0.8 L, Lipase 24 I & O for Last 24 hours: Intake & Output 12/09/24 12/10/24 12/11/24 12/12/24 23:59 23:59 23:59 23:59 Weight 90.718 kg Constitutional Constitutional: no acute distress, obese, chronically ill appearing and cooperative *Routine HEENT Exam Head: Present normocephalic Eye: Present EOMI and PERRL ENT: Present mucous membranes moist Comments: Hemangioma of tongue *Routine Neck Exam Neck: Present supple; Absent lymphadenopathy *Routine Respiratory Exam Respiratory: Present CTA bilaterally, able to speak in complete sentences and symmetric chest movement; Absent wheezes or crackles *Routine Cardiovascular Exam Cardiovascular: Present RRR, Normal S1 and Normal S2 *Routine Abdominal Exam Abdominal: Present soft and normoactive bowel sounds; Absent tenderness *Routine Rectal Exam Rectal:: deferred *Routine Genitalia Exam Genitalia:: deferred *Routine Extremities Exam Extremities: Present edema; Absent cyanosis or clubbing *Routine Skin Exam Skin: Present intact and warm; Absent rash Comments: Pressure spot on coccyx *Routine Neurological Exam Neurological: Present alert and oriented X3 Assessment and Plan *Assessment and plan (1) ANMOL (acute kidney injury): Status: Acute Category: Medical Code(s): N17.9 - Acute kidney failure, unspecified (2) Hyponatremia: Status: Acute Category: Medical Code(s): E87.1 - Hypo-osmolality and hyponatremia (3) Supratherapeutic INR: Status: Acute Category: Medical Code(s): R79.1 - Abnormal coagulation profile (4) Colon cancer metastasized to liver: Status: Acute Category: Medical Code(s): C18.9 - Malignant neoplasm of colon, unspecified; C78.7 - Secondary malignant neoplasm of liver and intrahepatic bile duct (5) Nausea & vomiting: Status: Acute Category: Medical Code(s): R11.2 - Nausea with vomiting, unspecified Plan Ms. Roblero is a 79-year-old female with a significant medical history of metastatic colon cancer with mets to the liver. She presented to the emergency room with generalized weakness, nausea, vomiting x 3 days. She states she has been able to keep very little down, and feels very dehydrated. Patient received a 1 L bolus in the emergency department, and states now she feels better the emergency physician consulted hospital medicine for admission and I decided to admit patient for further monitoring and hydration. Patient was also found to have an acute kidney injury with a creatinine of 2.8, baseline 1.0 and hyponatremia with a sodium of 128. #Metastatic colon cancer #Intractable nausea/vomiting #ANMOL ? Patient is no longer pursuing chemo or radiation. She has not excepted hospice care at this time due to family concerns for placing her in hospice. She is open for more conversation during admission. ? Initial creatinine 2.8, baseline 1.0. 1 L bolus given in the ED. ? Continue NS @ 100 mL/h. ? Follow-up CMP, CBC, magnesium in the morning. ?Zofran and Phenergan ordered IV for continued nausea and vomiting, pain control with home oral pain control regimen [place] 5/325 mg every 4 hours 1 tab for moderate pain 2 tabs for severe pain. Tylenol 650 mg ordered for mild pain. Monitoring for toxicity. #Supratherapeutic INR ?Patient is on warfarin therapy for a history of A-fib and multiple blood clots PE's/DVT's. ? Patient takes Coumadin in the setting of cancer. PT/INR 90.0/8.00. Patient states she has been taking her warfarin as prescribed. Last INR was 3.5 approximately 2 weeks ago. Will hold warfarin at this time. ? Will follow-up with PT/INR in the morning. #Hyponatremia ? Hyponatremia likely due to intractable nausea and vomiting. Will continue to monitor CMP in the a.m. DNR/DNI DVT prophylaxis: Hold due to elevated PT/INR Ambulate with assistance PT consult Regular diet
[2024-12-12] MEDS: 0.9 % SODIUM CHLORIDE 1000ML 1,000 ML 100 ML IV (17:09)
[2024-12-12 17:21] LABS: Troponin I < 0.01 ng/ml (0.00-0.034)
[2024-12-12 19:18] LABS: Creatine Kinase 126 U/L (30-135)
[2024-12-12 20:28] LABS: Troponin I < 0.01 ng/ml (0.00-0.034)
[2024-12-12] MEDS: HYDROCODONE/APAP 5/325 MG TABLET 2 TAB PO (21:58)
--- NOTE | 2024-12-12 22:54 | PC.NURSE ---
patient has a red, sloughing, scabby area on the right upper/inner buttock. dsg applied and dated. states she has had this for a while.
[2024-12-13] VITALS: BP 97/56; PULSE 61; RESP 16; TEMP 36.9; O2SAT 96
[2024-12-13] MEDS: 0.9 % SODIUM CHLORIDE 1000ML 1,000 ML 100 ML IV ×2 (03:11→12:40)
[2024-12-13 04:00] VITALS: BP 96/50; PULSE 100; RESP 16; TEMP 36.4; O2SAT 100; BMI 34.1
--- NOTE | 2024-12-13 05:26 | PC.NURSE ---
collected AM labs via right chest port and sent to lab
[2024-12-13 05:45] LABS: Hematocrit 24.3 % (37.0-47.0); Immature Granulocytes % 0.8 %; Mean Corpuscular HGB Conc 32.1 g/dL (31.8-35.4); Mean Corpuscular Hemoglobin 27.5 pg (27.0-31.2); Mean Corpuscular Volume 85.6 fl (81-99); Nucleated Red Blood Cells % 0 %; Platelet Count 234 K/mm3 (142-424); Red Blood Count 2.84 M/mm3 (4.20-5.40); Red Cell Distribution Width-SD 48.2 fL; White Blood Count 11.7 K/mm3 (4.8-10.8)
[2024-12-13 05:49] LABS: Hemoglobin 7.9 g/dL (12.2-16.2)
[2024-12-13 05:51] LABS: Magnesium 2.4 mg/dl (1.6-2.3)
[2024-12-13 05:57] LABS: Microscopic, Urine URINE MICROSCOPIC (MICROSCOPIC)
[2024-12-13 06:04] LABS: INR 8.00 (0.9-1.1); Prothrombin Time 90.0 seconds (10.1-12.5)
[2024-12-13 06:05] LABS: Bilirubin,Urine Negative (Negative); Color,Urine YELLOW (Yellow); Glucose,Urine (UA) Negative (Negative); Ketones,Urine Negative (Negative); Leukocyte Esterase,Urine 2+ (Negative); PH,Urine 5.5 (5.0-8.5); Protein,Urine TRACE (Negative); Specific Gravity, Urine 1.015 (1.005-1.030); Urobilinogen,Urine 1.0 EU/dl (0.2)
--- NOTE | 2024-12-13 06:05 | PC.NURSE ---
notified hospitalist of PT/INR results
[2024-12-13 06:12] LABS: Bacteria,Urine 2+ /lpf; Mucus,Urine 2+ /lpf; WBC,Urine 20-50 #/hpf (0-3)
[2024-12-13 08:00] VITALS: BP 105/55; PULSE 60; RESP 16; TEMP 36.3; O2SAT 94
--- NOTE | 2024-12-13 08:29 | [facility].PTEV ---
Physical Therapy Evaluation Rehab PT IP Evaluation Start: 12/12/24 16:41 Freq: ONCE Status: Active Protocol: Document 12/13/24 08:20 MICHELINE (Rec: 12/13/24 08:28 MICHELINE [id number]) Subjective/History History History Per H&P: Ms. Roblero is a 79-year-old female who presented to the emergency department today with nausea , vomiting, weakness. She has a significant medical history of metastatic colon cancer, metastasis to the liver, A-fib, ANMOL, PE, DVT, CHF. She has had multiple hospitalizations recently due to increased illness related to her metastatic colon cancer. Hospice discussions have been initiated, but patient is not interested at this time. She is currently still seeing her oncologist for pain control medication, but is not receiving any chemotherapy or radiation. Subjective Subjective PLOF: IND with functional mobility using a RW. Requires some supervision for showering tasks. Does not drive. Denies any falls in past 30 days. HOME: Lives with daughter in a single-story home with 1 EMY. ASSIST: Daughter able to provide 22/12 assistance. [facility] How much help from another person do you currently need... Turning from your None back to your side while in a flat bed without using bedrails? Moving from lying on None back to sitting on the side of a flat bed without using bedrails? Moving to and from a None bed to a chair ( including a wheelchair)? Standing up from a None chair using your arms? (e.g., wheelchair, bedside chair) Walking in hospital None room? Climbing 3-5 steps A little with a railing? Mobility Score 23 Mobility Level [facility] Mobility 7 Walk 25 feet or more Mobility Calculator Rehab PT IP Eval Objective Appearance Patient Behavior Appropriate,Cooperative Patient Orientation Person,Place Difficulty following none instructions Speech Pattern Clear Ambulation Patient Able to Yes Ambulate Ambulation Observation IP General Gait Wide Based Gait Pattern Observation Ambulation Distance 25 (feet) Ambulation Assistive Rolling Walker Device Ambulation Ability Supervision/Stand by Balance Ability to Arise Able, uses arms to help Sitting Balance Steady, safe Standing Balance Steady, wide stance Dynamic Sitting Good Balance Ability Dynamic Standing Fair Balance Ability Transfers Bed Transfer Ability Independent Sit to Stand Bed Independent Transfer Ability Rehab PT IP prob,goals,plan Problems Date of Evaluation: 12/13/24 Rehab Potential Rehab Potential Innapropriate for Skilled Therapy Discharge Plan PT Discharge Plan Pt most appropriate to d/c home when deemed medically necessary d/t current level of mobility, home set-up, and family support. Pt not appropriate for skilled acute care PT at this time d/t pt?s mobility being at baseline. Eval Complexity Eval Charge Codes 93490 - Moderate Complexity PHYSICIAN CERTIFICATION: I certify the specified therapy services for Vicky Roblero are required, authorized, and reviewed every 30 days.
--- NOTE | 2024-12-13 08:34 | EXP.PN ---
Subjective *Date: 12/13/24 *Time: 08:34 Exam Data for Last 24 hours Vital signs and Labs for Last 24 Hours: Temp Pulse Resp BP Pulse Ox O2 Del Method O2 Flow Rate 97.6 F 100 H 16 96/50 L 100 Room Air 2 12/13/24 04:00 12/13/24 04:00 12/13/24 04:00 12/13/24 04:00 12/13/24 04:00 12/13/24 06:49 12/12/24 15:11 Laboratory Results - last 24 hr 12/12/24 13:31: WBC 14.3 H, RBC 3.31 L, Hgb 8.8 L, Hct 28.0 L, MCV 84.6, MCH 26.6 L, MCHC 31.4 L, RDW 15.6, Plt Count 266, MPV 9.4, Neut % (Auto) 84.5 H, Lymph % (Auto) 7.8 L, [place] % (Auto) 6.4, Eos % (Auto) 0.4, Baso % (Auto) 0.3, Neut # (Auto) 12.1 H, Lymph # (Auto) 1.1, [place] # (Auto) 0.9, Eos # (Auto) 0.1, Baso # (Auto) 0.0, PT 90.0 H, INR 8.00 H, Sodium 127 L, Potassium 4.8, Chloride 93 L, Carbon Dioxide 26, Anion Gap 12.8, BUN 45 H, Creatinine 2.80 H, Estimated Creat Clear 23, Estimated GFR 16 L*, Est GFR ( Amer) 20 L, Glucose 112 H, Calcium 8.7, Magnesium 2.4 H, Total Bilirubin 1.1, AST 122 H, ALT 19, Alkaline Phosphatase 553 H, Troponin I < 0.01, NT-Pro-B Natriuret Pep 3590 H, Total Protein 7.0 D, Albumin 3.1 L, Globulin 3.9 H, Albumin/Globulin Ratio 0.8 L, Lipase 24 12/12/24 16:15: Total Creatine Kinase 126, Troponin I < 0.01 12/12/24 19:08: Troponin I < 0.01 12/13/24 05:30: WBC 11.7 H, RBC 2.84 L, Hgb 7.9 L D, Hct 24.3 L, MCV 85.6, MCH 27.5, MCHC 32.1, RDW 15.4, Plt Count 234, MPV 9.7, Neut % (Auto) 82.3 H, Lymph % (Auto) 9.3 L, [place] % (Auto) 6.8, Eos % (Auto) 0.6, Baso % (Auto) 0.2, Neut # (Auto) 9.6 H, Lymph # (Auto) 1.1, [place] # (Auto) 0.8, Eos # (Auto) 0.1, Baso # (Auto) 0.0, PT 90.0 H, INR 8.00 H, Magnesium 2.4 H 12/13/24 05:45: Urine Color Yellow, Urine Appearance Clear, Urine pH 5.5, Ur Specific [place] 1.015, Urine Protein Trace, Urine Glucose (UA) Negative, Urine Ketones Negative, Urine Blood 1+ A, Urine Nitrate Negative, Urine Bilirubin Negative, Urine Urobilinogen 1.0, Ur Leukocyte Esterase 2+ A, Urine RBC 5-10, Urine WBC 20-50, Ur Squamous Epith Cells 3-5, Urine Bacteria 2+, Urine Mucus 2+ I & O for Last 24 hours: Intake & Output 12/10/24 12/11/24 12/12/24 12/13/24 23:59 23:59 23:59 23:59 Intake Total 120 / 120 1099 / 1099 Output Total 0 / 0 300 / 300 Balance 120 / 120 799 / 799 Weight 90.718 kg 90.71 kg
[2024-12-13 08:47] LABS: Alanine Aminotransferase 13 U/L (12-78); Albumin Level 2.5 g/dl (3.5-5.0); Albumin/Globulin Ratio 0.7 (1.1-1.8); Alkaline Phosphatase 422 U/L (38-126); Anion Gap 11.3 mEq/L (5-15); Aspartate Amino Transferase 77 U/L (14-36); Bilirubin,Total 0.9 mg/dl (0.2-1.3); Blood Urea Nitrogen 41 mg/dl (7-17); Calcium 8.3 mg/dl (8.4-10.2); Carbon Dioxide 24 mmol/L (22.0-30.0); Chloride 98 mmol/L (98-107); Creatinine Clearance Estimated 29 mL/min (50-200); Creatinine,Serum 2.30 mg/dl (0.52-1.04); Estimated Glomerular Filt Rate 21 ml/min (>60); GFR (African American) 25 ML/MIN (>60); Globulin 3.4 g/dL (1.3-3.2); Glucose 99 mg/dl (74-100); Potassium 4.3 mmoL/L (3.5-5.1); Sodium 129 mmol/L (136-145); Total Protein,Serum 5.9 g/dl (6.3-8.2)
[2024-12-13] MEDS: ACETAMINOPHEN 325MG TAB 650 MG PO (09:05)
[2024-12-13] MEDS: CEFTRIAXONE 1 GM 1 GM in 0.9 % SODIUM CHLORIDE 50 ML IV (09:06)
[2024-12-13 10:51] VITALS: BMI 34.1
[2024-12-13 12:00] VITALS: BP 105/60; PULSE 72; RESP 16; TEMP 36.6; O2SAT 100
--- NOTE | 2024-12-13 12:06 | P.DS_ITS ---
<Statement entered by Jim Landry MD - 12/18/24 08:54> Personally examined patient and agree with plan of care as outlined by the RADIO STATION ENGINEER. General Admission date:: 12/12/24 Discharge date: 12/13/24 HPI HPI HPI: Ms. Roblero is a 79-year-old female who presented to the emergency department today with nausea, vomiting, weakness. She has a significant medical history of metastatic colon cancer, metastasis to the liver, A-fib, ANMOL, PE, DVT, CHF. She has had multiple hospitalizations recently due to increased illness related to her metastatic colon cancer. Hospice discussions have been initiated, but patient is not interested at this time. She is currently still seeing her oncologist for pain control medication, but is not receiving any chemotherapy or radiation. Hospital Course Hospital Course Hospital Course: Ms. Roblero is a 79-year-old female with a significant medical history of metastatic colon cancer with mets to the liver. She presented to the emergency room with generalized weakness, nausea, vomiting x 3 days. She states she has been able to keep very little down, and feels very dehydrated. Patient received a 1 L bolus in the emergency department, and states now she feels better the emergency physician consulted hospital medicine for admission and I decided to admit patient for further monitoring and hydration. Patient was also found to have an acute kidney injury with a creatinine of 2.8, baseline 1.0 and hyponatremia with a sodium of 128. #Metastatic colon cancer #Intractable nausea/vomiting #ANMOL ? Patient is no longer pursuing chemo or radiation. She has not excepted hospice care at this time due to family concerns for placing her in hospice. Patient currently has home health ordered by her PCP, she is not interested in hospice care at this time. She does state that she would potentially like her home health to be able to give her fluids. Discussed with patient the order coming from her PCP, who orders her home health. ? Initial creatinine 2.8, baseline 1.0. 1 L bolus given in the ED. patient received maintenance fluids IV hydration, NS at 100 an hour overnight, patient creatinine improved to 2.3. Continue to monitor in the outpatient setting. ?Patient initially admitted for intractable nausea and vomiting, she has had no episodes of vomiting since being admitted. She states she did have some mild nausea last night which medicine corrected. Patient does have oral Zofran at home. #Supratherapeutic INR ?Patient is on warfarin therapy for a history of A-fib and multiple blood clots PE's/DVT's. ? Patient takes Coumadin in the setting of cancer. PT/INR 90.0/8.00. Patient states she has been taking her warfarin as prescribed. Last INR was 3.5 approximately 2 weeks ago. Will hold warfarin at this time. ? Follow-up PT/INR this morning still remained high, 90.0/8.00. Gave one-time dose vitamin K 5 mg IV. Will continue to monitor PT/INR outpatient setting in the next 2 to 3 days. ?Discussed with care management the possibility of transitioning patient to Eliquis or Xarelto. In the past patient has not been able to afford those so she has been on Coumadin therapy. #Hyponatremia ? Hyponatremia likely due to intractable nausea and vomiting. Sodium improved to 129. #Anemia ? Patient hemoglobin 8.8 on admission, 7.9 repeat today. Patient baseline falls between 8 and 10. Patient is asymptomatic. Total time spent on discharge 39 minutes in counseling, documentation, chart review, and direct care with patient. Exam Data for Last 24 hours Vital signs and Labs for Last 24 Hours: Temp Pulse Resp BP Pulse Ox O2 Del Method O2 Flow Rate 97.4 F L 60 16 105/55 L 94 L Room Air 2 12/13/24 08:00 12/13/24 08:00 12/13/24 08:00 12/13/24 08:00 12/13/24 08:00 12/13/24 11:00 12/12/24 15:11 Laboratory Results - last 24 hr 12/12/24 13:31: WBC 14.3 H, RBC 3.31 L, Hgb 8.8 L, Hct 28.0 L, MCV 84.6, MCH 26.6 L, MCHC 31.4 L, RDW 15.6, Plt Count 266, MPV 9.4, Neut % (Auto) 84.5 H, Lymph % (Auto) 7.8 L, [place] % (Auto) 6.4, Eos % (Auto) 0.4, Baso % (Auto) 0.3, Neut # (Auto) 12.1 H, Lymph # (Auto) 1.1, [place] # (Auto) 0.9, Eos # (Auto) 0.1, Baso # (Auto) 0.0, PT 90.0 H, INR 8.00 H, Sodium 127 L, Potassium 4.8, Chloride 93 L, Carbon Dioxide 26, Anion Gap 12.8, BUN 45 H, Creatinine 2.80 H, Estimated Creat Clear 23, Estimated GFR 16 L*, Est GFR ( Amer) 20 L, Glucose 112 H, Calcium 8.7, Magnesium 2.4 H, Total Bilirubin 1.1, AST 122 H, ALT 19, Alkaline Phosphatase 553 H, Troponin I < 0.01, NT-Pro-B Natriuret Pep 3590 H, Total Protein 7.0 D, Albumin 3.1 L, Globulin 3.9 H, Albumin/Globulin Ratio 0.8 L, Lipase 24 12/12/24 16:15: Total Creatine Kinase 126, Troponin I < 0.01 12/12/24 19:08: Troponin I < 0.01 12/13/24 05:30: WBC 11.7 H, RBC 2.84 L, Hgb 7.9 L D, Hct 24.3 L, MCV 85.6, MCH 27.5, MCHC 32.1, RDW 15.4, Plt Count 234, MPV 9.7, Neut % (Auto) 82.3 H, Lymph % (Auto) 9.3 L, [place] % (Auto) 6.8, Eos % (Auto) 0.6, Baso % (Auto) 0.2, Neut # (Auto) 9.6 H, Lymph # (Auto) 1.1, [place] # (Auto) 0.8, Eos # (Auto) 0.1, Baso # (Auto) 0.0, PT 90.0 H, INR 8.00 H, Sodium 129 L, Potassium 4.3, Chloride 98, Carbon Dioxide 24, Anion Gap 11.3, BUN 41 H, Creatinine 2.30 H, Estimated Creat Clear 29, Estimated GFR 21 L, Est GFR ( Amer) 25 L D, Glucose 99, Calcium 8.3 L, Magnesium 2.4 H, Total Bilirubin 0.9, AST 77 H D, ALT 13 D, Alkaline Phosphatase 422 H, Total Protein 5.9 L, Albumin 2.5 L D, Globulin 3.4 H, Albumin/Globulin Ratio 0.7 L 12/13/24 05:45: Urine Color Yellow, Urine Appearance Clear, Urine pH 5.5, Ur Specific [place] 1.015, Urine Protein Trace, Urine Glucose (UA) Negative, Urine Ketones Negative, Urine Blood 1+ A, Urine Nitrate Negative, Urine Bilirubin Negative, Urine Urobilinogen 1.0, Ur Leukocyte Esterase 2+ A, Urine RBC 5-10, Urine WBC 20-50, Ur Squamous Epith Cells 3-5, Urine Bacteria 2+, Urine Mucus 2+ I & O for Last 24 hours: Intake & Output 12/10/24 12/11/24 12/12/24 12/13/24 23:59 23:59 23:59 23:59 Intake Total 120 / 120 1339 / 1339 Output Total 0 / 0 300 / 300 Balance 120 / 120 1039 / 1039 Weight 90.718 kg 90.71 kg Constitutional Constitutional: no acute distress and obese *Routine HEENT Exam Head: Present normocephalic Eye: Present EOMI and PERRL ENT: Present mucous membranes moist *Routine Neck Exam Neck: Present supple; Absent lymphadenopathy *Routine Respiratory Exam Respiratory: Present CTA bilaterally *Routine Cardiovascular Exam Cardiovascular: Present RRR *Routine Abdominal Exam Abdominal: Present soft, normoactive bowel sounds and tenderness *Routine Extremities Exam Extremities: Absent cyanosis, clubbing or edema *Routine Skin Exam Skin: Present warm; Absent rash *Routine Neurological Exam Neurological: Present alert and oriented X3 Results Data Completed and Pending Labs on day of discharge: Labs from last 24 hours 12/13/24 12/13/24 12/12/24 05:45 05:30 19:08 WBC 11.7 H RBC 2.84 L Hgb 7.9 L D Hct 24.3 L MCV 85.6 MCH 27.5 MCHC 32.1 RDW 15.4 Plt Count 234 MPV 9.7 Neut % (Auto) 82.3 H Lymph % (Auto) 9.3 L [place] % (Auto) 6.8 Eos % (Auto) 0.6 Baso % (Auto) 0.2 Neut # (Auto) 9.6 H Lymph # (Auto) 1.1 [place] # (Auto) 0.8 Eos # (Auto) 0.1 Baso # (Auto) 0.0 PT 90.0 H INR 8.00 H Sodium 129 L Potassium 4.3 Chloride 98 Carbon Dioxide 24 Anion Gap 11.3 BUN 41 H Creatinine 2.30 H Estimated Creat Clear 29 Estimated GFR 21 L Est GFR ( Amer) 25 L D Glucose 99 Calcium 8.3 L Magnesium 2.4 H Total Bilirubin 0.9 AST 77 H D ALT 13 D Alkaline Phosphatase 422 H Total Creatine Kinase Troponin I < 0.01 NT-Pro-B Natriuret Pep Total Protein 5.9 L Albumin 2.5 L D Globulin 3.4 H Albumin/Globulin Ratio 0.7 L Lipase Urine Color Yellow Urine Appearance Clear Urine pH 5.5 Ur Specific [place] 1.015 Urine Protein Trace Urine Glucose (UA) Negative Urine Ketones Negative Urine Blood 1+ A Urine Nitrate Negative Urine Bilirubin Negative Urine Urobilinogen 1.0 Ur Leukocyte Esterase 2+ A Urine RBC 5-10 Urine WBC 20-50 Ur Squamous Epith Cells 3-5 Urine Bacteria 2+ Urine Mucus 2+ 12/12/24 12/12/24 16:15 13:31 WBC 14.3 H RBC 3.31 L Hgb 8.8 L Hct 28.0 L MCV 84.6 MCH 26.6 L MCHC 31.4 L RDW 15.6 Plt Count 266 MPV 9.4 Neut % (Auto) 84.5 H Lymph % (Auto) 7.8 L [place] % (Auto) 6.4 Eos % (Auto) 0.4 Baso % (Auto) 0.3 Neut # (Auto) 12.1 H Lymph # (Auto) 1.1 [place] # (Auto) 0.9 Eos # (Auto) 0.1 Baso # (Auto) 0.0 PT 90.0 H INR 8.00 H Sodium 127 L Potassium 4.8 Chloride 93 L Carbon Dioxide 26 Anion Gap 12.8 BUN 45 H Creatinine 2.80 H Estimated Creat Clear 23 Estimated GFR 16 L* Est GFR ( Amer) 20 L Glucose 112 H Calcium 8.7 Magnesium 2.4 H Total Bilirubin 1.1 AST 122 H ALT 19 Alkaline Phosphatase 553 H Total Creatine Kinase 126 Troponin I < 0.01 < 0.01 NT-Pro-B Natriuret Pep 3590 H Total Protein 7.0 D Albumin 3.1 L Globulin 3.9 H Albumin/Globulin Ratio 0.8 L Lipase 24 Urine Color Urine Appearance Urine pH Ur Specific [place] Urine Protein Urine Glucose (UA) Urine Ketones Urine Blood Urine Nitrate Urine Bilirubin Urine Urobilinogen Ur Leukocyte Esterase Urine RBC Urine WBC Ur Squamous Epith Cells Urine Bacteria Urine Mucus DS: Diagnosis Discharge Diagnosis (1) ANMOL (acute kidney injury): Status: Acute Code(s): N17.9 - Acute kidney failure, unspecified (2) Hyponatremia: Status: Acute Code(s): E87.1 - Hypo-osmolality and hyponatremia (3) Supratherapeutic INR: Status: Acute Code(s): R79.1 - Abnormal coagulation profile (4) Colon cancer metastasized to liver: Status: Acute Code(s): C18.9 - Malignant neoplasm of colon, unspecified; C78.7 - Secondary malignant neoplasm of liver and intrahepatic bile duct (5) Nausea & vomiting: Status: Acute Code(s): R11.2 - Nausea with vomiting, unspecified Meds Home Medications and Allergies Home Medications ?Medication ?Instructions ?Recorded ?Confirmed ?Type potassium chloride 20 mEq 20 meq PO DAILY 07/14/24 History tablet,extended release nystatin 100,000 unit/gram topical 1 applic topical BI DP PRN Rash 09/20/24 12/12/24 History powder (Nystop) hydrocodone 10 mg-acetaminophen 1 - 2 tab PO Q4HP PRN Moderate 12/12/24 12/12/24 History 325 mg tablet Pain (Scale Score 5-6) ondansetron 8 mg disintegrating 8 mg PO TIDP PRN Nause a And 12/12/24 12/12/24 History tablet Vomiting spironolactone 25 mg tablet 25 mg PO DAILY 12/12/24 History warfarin 2 mg tablet (Jantoven) 2 mg PO DAILY 12/12/24 12/12/24 History New Prescriptions to Start Prescriptions: Allergies Allergy/AdvReac Type Severity Reaction Status Date / Time tetracycline Allergy Rash Verified 09/19/24 14:19 Discharge Plan Disposition Patient Disposition: Home Health Service Condition: Fair Discharge Order Discharge Orders: Discharge Order (Routine); Ordered 12/13/24 Ordered By: Ankita Amin Follow up Plan Prescriptions/Medication Reconciliation: Continued potassium chloride 20 mEq tablet extended release 20 meq PO DAILY Patient Comments: TAKE 1 TABLET BY MOUTH EVERY DAY DIRECTED nystatin [Nystop] 100,000 unit/gram powder 1 applic TOPICAL BIDP PRN (Reason: Rash) Patient Comments: APPLY TOPICALLY TO THE AFFECTED AREA(S) 2 TIMES PER DAY NEEDED hydrocodone-acetaminophen 10-325 mg tablet 1 - 2 tab PO Q4HP PRN (Reason: Moderate Pain (Scale Score 5-6)) Patient Comments: TAKE 1 OR 2 TABLETS BY MOUTH EVERY 4 TO 6 HOURS NEEDED FOR PAIN spironolactone 25 mg tablet 25 mg PO DAILY Patient Comments: TAKE 1 TABLET BY MOUTH EVERY DAY ondansetron 8 mg tablet,disintegrating 8 mg PO TIDP PRN (Reason: Nausea And Vomiting) Patient Comments: DISSOLVE 1 TABLET IN MOUTH 3 TIMES A DAY No Action warfarin [Jantoven] 2 mg tablet 2 mg PO DAILY Patient Comments: TAKE 1 TABLET BY MOUTH EVERY DAY Problem Reconciliation Problems Reviewed?: Yes Patient Discharge Instructions ACTIVITY: Continue current activity DIET: cardiac Patient Instructions: Acute Kidney Injury, DI for Hyponatremia, Coumadin Vitamin K/ Diet Print Language: Hebrew Providers Primary Care Provider: Provider,Referral Admit Provider: Jim Landry Attending Provider: Jim Landry
[2024-12-13] MEDS: PHYTONADIONE 5 MG in 0.9 % SODIUM CHLORIDE 50 ML 100 MG IV (12:09)
--- NOTE | 2024-12-13 13:11 | SW/DCPLANNER ---
Spoke with patient regarding discharge planning.Patient lives at home with her daughter and uses home health services through [facility]. Patient denied questions or concerns. She stated she has everything she needs and uses at home. Updated patient information will be faxed to [facility].
--- NOTE | 2024-12-13 13:25 | CARE MANAGER ---
Current Medications Acetaminophen (Acetaminophen 325mg Tab) 650 mg PO Q4HP PRN PRN Reason: Fever or Mild Pain (1-3) Stop: 01/11/25 15:47 Last Admin: 12/13/24 09:05 Dose: 650 mg Hydrocodone Bitart/Acetaminophen (Hydrocodone/Apap 5/325 Mg Tablet) 1 tab PO Q4HP PRN PRN Reason: Moderate Pain (4-6) Stop: 01/11/25 15:47 Hydrocodone Bitart/Acetaminophen (Hydrocodone/Apap 5/325 Mg Tablet) 2 tab PO Q4HP PRN PRN Reason: Severe Pain (7-10) Stop: 01/11/25 16:40 Last Admin: 12/12/24 21:58 Dose: 2 tab Sodium Chloride (Sod Chlor 0.9% 1000ml Bag) 1,000 mls @ 100 mls/hr IV .Q10H [facility] Stop: 01/11/25 16:44 Last Admin: 12/13/24 12:40 Dose: 100 mls/hr Ceftriaxone Sodium 1 gm/ (Sodium Chloride) 50 mls @ 100 mls/hr IV Q24H [facility] Stop: 12/23/24 08:59 Last Admin: 12/13/24 09:06 Dose: 100 mls/hr Morphine Sulfate (Morphine 4mg/Ml Syringe) 4 mg IV Q6HP PRN PRN Reason: Breakthru Severe Pain (7-10) Stop: 01/11/25 17:01 Ondansetron HCl (Ondansetron 4mg/2ml Vial) 4 mg IV Q8HP PRN PRN Reason: Nausea Stop: 01/11/25 15:47 Promethazine HCl (Promethazine Hcl 25mg/Ml 1ml Vial) 12.5 mg IV Q6HP PRN PRN Reason: Nausea And Vomiting Stop: 01/11/25 15:47 Sodium Chloride (Sodium Chloride 0.9% 10ml Flush Syringe) 10 ml IV NEEDED PRN PRN Reason: Maintain IV Site Stop: 01/11/25 15:55 Sodium Chloride (Sodium Chloride 0.9% 25ml Bag) 25 ml IV NEEDED PRN PRN Reason: for Use with IV Promethazine Stop: 01/11/25 15:55
--- NOTE | 2024-12-13 13:27 | SW/DCPLANNER ---
Spoke with patient once she is medically stable and ready for discharge if she would be interested in home health services. Patient stated that she is already established with [facility]. Once patient's discharge summary is in i will fax it to [facility]. Ayan Jones
--- NOTE | 2024-12-13 13:27 | CARE MANAGER ---
Vital Signs Pulse Rate 65 12/12/24 13:06 Blood Pressure 99/57 L 12/12/24 13:06 02 Sat by Pulse Oximetry 64 L 12/12/24 13:06 Temperature 97.4 F L 12/13/24 08:00 Pulse Rate 60 12/13/24 08:00 Respiratory Rate 16 12/13/24 08:00 Blood Pressure 105/55 L 12/13/24 08:00 02 Sat by Pulse Oximetry 94 L 12/13/24 08:00 Oxygen Delivery Method Room Air 12/13/24 11:00 Oxygen Flow Rate (LPM) 2 12/12/24 15:11
--- NOTE | 2024-12-14 10:20 | SW/DCPLANNER ---
Spoke with patient on the phone. Patient stated that she is doing good still weak. Patient stated that she was not given any new appointments. Patient stated that she was able to get her new medicine picked up from clinic pharmacy. Patient stated that she has no concerns or questions at this time. Ayan Jones
--- NOTE | 2024-12-15 09:02 | PC.NURSE ---
pts prelim urine culture results transmitted to the hospitalist.
== END 2024-12-13 16:18 | disposition home health service (06) | DRG 682 ==
LOC: ER 14:11 → 2ND 14:43
PROVIDERS: Nurse Practitioner; Admitting Provider Student in an Organized Health Care Education/Training Program; Emergency Provider Student in an Organized Health Care Education/Training Program; Visit Provider Student in an Organized Health Care Education/Training Program
DX: N17.9 Acute kidney failure, unspecified (principal); E43 Unspecified severe protein-calorie malnutrition; C18.9 Malignant neoplasm of colon, unspecified; E87.1 Hypo-osmolality and hyponatremia; C78.7 Secondary malignant neoplasm of liver and intrahepatic bile duct; E86.0 Dehydration; I48.0 Paroxysmal atrial fibrillation; D64.9 Anemia, unspecified; I50.9 Heart failure, unspecified; R79.1 Abnormal coagulation profile; Z66 Do not resuscitate; Z86.711 Personal history of pulmonary embolism; Z79.01 Long term (current) use of anticoagulants; Z86.718 Personal history of other venous thrombosis and embolism; Z79.899 Other long term (current) drug therapy; Z88.1 Allergy status to other antibiotic agents; Z68.34 Body mass index [BMI] 34.0-34.9, adult
CPT/HCPCS: 71045; 80053; 81001; 82550; 83690; 83735; 83880; 84484; 85025; 85610; 87086; 87088; 87186; 93005; 97162; J0696; J1642; J2405; J3430; J7030

== ENCOUNTER 2024-12-16 10:08 | Outpatient (CLI) | payer MEDICARE, SELFPAY ==
--- OUTSIDE RECORDS SUMMARY | 2024-10-26 11:00 | XMS_ITS | Encounter Summary ---
Author Organization [place] [address] Care Team Providers Care Supervisor Forming And Tempering Name Role Phone Luis Villasenor MD Unavailable [phone] Luis Villasenor MD Primary Care Provider Reason for Visit * Reason Comments Labs Only Encounter Details Date Type Department Care Team (Late Contact Info) Description 10/26/2024 11:00 AM EDT Clinical Support TODD [place] [address] [place] [phone] Freya Coon [facility] [place] [address] Flank pain Social History Tobacco Use Types [...] 8:59 AM EDT Nghia Redmond CMA documented as of this encounter Mental Status * Because of a physical, mental or emotional condition, does this person have serious difficulty concentrating, remembering or making decisions? Answer Entry Date Author No 02/09/2020 8:59 AM EDT Nghia Redmond CMA documented in this encounter Progress Notes * Freya Coon - 10/26/2024 11:00 AM EDT Venipuncture in the right antecubital vein with 21 gauge needle, length 1 1/2 inch. documented in this encounter Plan of Treatment Upcoming Encounters Date Type Department Care Team (Late st Contact Info) Description 12/19/2024 9:00 AM EDT Office Visit [facility] [address] [place] [address] Amarilis Nolan, BUSHEL WORKER [address] [place] [address] documented as of this encounter Goals Goal [...] CULTURE (NO STAIN) (10/26/2024 11:17 AM EDT) Culture Multiple bacterial species isolated from urine consistent with urogenital commensal organisms. 10/27/2024 10:23 PM EDT [facility] Urine STRUCTURE OF URINARY TRACT PROPER / Unknown 10/26/2024 11:17 AM EDT 10/26/2024 11:17 AM EDT Amarilis Nolan APRN MICROBIOLOGY - GENERAL OR DERABLES Final Result [employer] [address] [facility] , [place] [address] * (ABNORMAL) SEP URINALYSIS POC [...] ORDERABLES Fi nal Result TODD [place] [address] [place] [address] * (ABNORMAL) COMPREHENSIVE METABOLIC PANEL (10/26/2024 11:03 [...] 10/26/2024 4:28 PM EDT [facility] Calcium 9.6 8.8 - 10.4 mg/dL 10/26/2024 4:28 PM EDT [facility] Glucose Lvl 128(H) 70 - 99 mg/dL 10/26/2024 4:28 PM EDT [facility] BUN 16 8 - 23 mg/dL 10/26/2024 4:28 PM EDT [facility] Creatinine 1.27 0.51 - 1.30 mg/dL 10/26/2024 4:28 PM EDT [facility] Albumin 3.5 3.2 - 4.6 gm/dL 10/26/2024 4:28 PM EDT [facility] Total Protein 7.4 6.4 - 8.3 gm/dL 10/26/2024 4:28 PM EDT [facility] Bili Total 0.7 0.2 - 1.3 mg/dL 10/26/2024 4:28 PM EDT [facility] ALT 11 <=41 U/L 10/26/2024 4:28 PM EDT [facility] AST 28 <=40 U/L 10/26/2024 4:28 PM EDT [facility] Alk Phos 259(H) 36 - 123 U/L 10/26/2024 4:28 PM EDT [facility] eGFR (CKD-EPIcr 2020) 43(L) >=60 mL/min/1.7 3 m2 10/26/2024 4:28 PM EDT [facility] Comment:Estimated GFR was ca lculated using the CKD-EPIcr (2020) equation refit without race. The equation is recommended by the National Kidney Foundation - [place] Society of Nephrology Task Force. Blood VENOUS BLOOD / Unknown Venipuncture / Unknown 10/26/2024 11:03 AM EDT 10/26/2024 11:03 AM EDT us Amarilis Nolan BUSHEL WORKER CHEMISTRY ORDERABLES Kell orlando Result [facility] [address] [facility] , [address] [place] [id number] documented in this encounter Visit Diagnoses Diagnosis Flank pain Abdominal pain, unspecified site documented in this encounter Additional Health Concerns Assessment Noted Time A fall risk assessment has been complete d for the patient 06/14/2024 9:03 AM EST documented as of this encounter Care Teams Supervisor Forming And Tempering Relationship Specialty Start Date End Date Luis Villasenor MD [address] [place] [address] PCP - OBGYN 01/09/10 Luis Villasenor MD [address] [place] [address] PCP - General 01/09/10 documented as of this encounter
--- OUTSIDE RECORDS SUMMARY | 2024-11-04 11:15 | XMS_ITS | Encounter Summary ---
Author Organization [facility] [place] [address] Care Team Providers Care Lead Front Desk Agent Name Role Phone Luis Villasenor MD Unavailable [phone] Luis Villasenor MD Primary Care Provider Reason for Visit * Reason Comments Hospital Follow Up Diverticulitis Encounter Details Date Type Department Care Team (Latest Contact Info) Description 11/04/2024 11:15 AM EDT Office Visit SEP Sarah [address] [place] [address] Amarilis Nolan, WELL DRILL OPERATOR [address] [place] [address] Diverticulitis of large intestine without perforation or [...] this encounter Progress Notes * Amarilis Nolan, WELL DRILL OPERATOR - 11/04/2024 11:15 AM EDT Assessment & [...] without bleeding Comments: inpatient hospital stay at [facility] November 03, symptoms resolved Peripheral edema [...] consistent with colon primary. Continues with chemotherapy [id number]. Managed by [facility] Oncology and Hematology 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) (Chronic) Overview: CT scan 01/2023 with multiple masses of liver and ascending colon thickening. 04/2023, R hemicolectomy and anastomosis, pathology of invasive moderately differentiated adenocarcinoma. Metastatic adenocarcinoma in 2/10 lymph nodes. Wedge resection of the liver with metastatic adenocarcinoma consistent with colon primary. Continues with chemotherapy [id number]. Managed by [facility] Oncology and Hematology Return in about 6 weeks (around 12/16/2024) for 6 week follow up, video visit ok. Subjective CHEMA Roblero is a 79 y.o. female Chief Complaint Patient presents with Hospital Follow Up Diverticulitis History of Present Illness The patient is a 79-year-old female here for a hospital follow-up. She was admitted to [facility] for diverticulitis. Denies ongoing symptoms since [...] The provider educated the patient (or legal surgical sales representative) on the use of the ambient listening artificial intelligence tool, [employer]. They were informed that this AI tool [...] of such information, the patient (or legal surgical sales representative), and each individual in attendance with the patient, verbally consented to the use of the AI tool. documented in this encounter Plan of Treatment Upcoming Encounters Date Type Department Care Team (Late st Contact Info) Description 12/19/2024 9:00 AM EDT Office Visit [facility] [address] [place] [phone] Amarilis Nolan APRN [address] [facility] [place] [id number] documented as of this encounter Goals Goal [...] documented as of this encounter Care Teams Lead Front Desk Agent Relationship Specialty Start Date End Date Luis Villasenor MD [address] [facility] [place] [id number] PCP - OBGYN 01/09/10 Luis Villasenor MD [address] [place] [address] PCP - General 01/09/10 documented as of this encounter
--- OUTSIDE RECORDS SUMMARY | 2024-11-14 09:00 | XMS_ITS | Encounter Summary ---
Author Organization [place] [address] Care Team Providers Care Last Repairer Helper Name Role Phone Luis Villasenor MD Unavailable [phone] Luis Villasenor MD Primary Care Provider Reason for Visit * Reason Comments Follow Up Needs labs, feeling drained, wants a b-12 Encounter Details Date Type Department Care Team (Late Contact Info) Description 11/14/2024 9:00 AM EDT Office Visit SEP Sarah [address] [place] [phone] Amarilis Nolan, COIN MACHINE SERVICE REPAIRER [address] [place] [address] 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) (Primary [...] No 02/09/2020 8:59 AM EDT Nghia Redmond, SLACKMAN documented in this encounter Ordered Prescriptions Prescription [...] encounter Progress Notes * Ovidio Amarilis Terrie, COIN MACHINE SERVICE REPAIRER - 11/14/2024 9:00 AM EDT Assessment & [...] 2024 per patient decision Managed by [facility] Orders: - CBC WITH [...] (Chronic) Overview: Dr. Youngblood, cardiology, [facility] Orders: - warfarin (COUMADIN) 5 mg [...] Gran% 0.6 % Lymph Percent 9.9 % Gregory Percent 8.3 % Eos Percent 3.5 % Baso Percent 0.6 % Neut # 7.7 (H) 1.6 - 6.1 x10(3)/mcL IMMGRAN# 0.1 0.0 - 0.1 x10(3)/mcL Lymph # 1.0 (L) 1.2 - 3.9 x10(3)/mcL Gregory # 0.8 0.3 - 0.9 x10(3)/mcL Eos# [...] The provider educated the patient (or legal front office representative) on the use of the ambient listening artificial intelligence tool, [employer] They were informed that this AI tool [...] of such information, the patient (or legal front office representative), and each individual in attendance with [...] 12/19/2024 9:00 AM EDT Office Visit [facility] [address] [place] [phone] Amarilis Nolan, COIN MACHINE SERVICE REPAIRER [address] [place] [address] documented as of this encounter Goals Goal [...] 3:44 PM EDT [facility] MCH 28.3 26.0 - 34.0 pg 11/14/2024 3:44 PM EDT [facility] MCHC 30.4(L) 30.7 - 35.5 g/dL 11/14/2024 3:44 PM EDT [facility] RDW 14.8 <=14.9 % 11/14/2024 3:44 PM EDT [facility] Platelet 375(H) 155 - 369 x10(3)/mcL 11/14/2024 3:44 PM EDT [facility] MPV 9.6 8.8 - 12.5 fL 11/14/2024 3:44 PM EDT [facility] Neut Percent 77.1 % 11/14/2024 3:44 PM EDT [facility] Comment:Neutrophils equals s egs plus bands Imm Gran% 0.6 % 11/14/2024 3:44 PM EDT [facility] Comment:Automated count of m etamyelocytes, myelocytes and promyelocytes. Lymph Percent 9.9 % 11/14/2024 3:44 PM EDT [facility] Gregory Percent 8.3 % 11/14/2024 3:44 PM EDT [facility] Eos Percent 3.5 % 11/14/2024 3:44 PM EDT [facility] Baso Percent 0.6 % 11/14/2024 3:44 PM EDT [facility] Neut # 7.7(H) 1.6 - 6.1 x10(3)/mcL 11/14/2024 3:44 PM EDT [facility] Comment:Neutrophils equals s egs plus bands IMMGRAN# 0.1 0.0 - 0.1 x10(3)/mcL 11/14/2024 3:44 PM EDT [facility] Comment:Automated count of m etamyelocytes, myelocytes and promyelocytes. An absolute IG <0.1 is reported as 0.0. Lymph # 1.0(L) 1.2 - 3.9 x10(3)/mcL 11/14/2024 3:44 PM EDT [facility] Gregory # 0.8 0.3 - 0.9 x10(3)/[facility] 11/14/2024 3:44 PM EDT [facility] Eos# 0.4 0.0 - 0.5 x10(3)/[facility] 11/14/2024 3:44 PM EDT [facility] Baso # 0.1 0.0 - 0.1 x10(3)/[facility] 11/14/2024 3:44 PM EDT [facility] Blood VENOUS BLOOD / Unknown Venipuncture / Unknown 11/14/2024 10:07 AM EDT 11/14/2024 10:07 AM EDT us Amarilis Nolan COIN MACHINE SERVICE REPAIRER HEMATOLOGY ORDERABLES Fin al Result [facility] [address] [facility] , [address] [place] [phone] * (ABNORMAL) COMPREHENSIVE METABOLIC PANEL (11/14/2024 10:07 [...] 11/14/2024 4:07 PM EDT [facility] Glucose Lvl 122(H) 70 - 99 mg/dL 11/14/2024 4:07 PM EDT [facility] BUN 15 8 - 23 mg/dL 11/14/2024 4:07 PM EDT [facility] Creatinine 1.38(H) 0.51 - 1.30 mg/dL 11/14/2024 4:07 PM EDT [facility] Albumin 3.4 3.2 - 4.6 gm/dL 11/14/2024 4:07 PM EDT [facility] Total Protein 7.8 6.4 - 8.3 gm/dL 11/14/2024 4:07 PM EDT [facility] Bili Total 0.6 0.2 - 1.3 mg/dL 11/14/2024 4:07 PM EDT [facility] ALT <5 <=41 U/L 11/14/2024 4:07 PM EDT [facility], [facility] AST 23 <=40 U/L 11/14/2024 4:07 PM EDT [facility], [facility] Alk Phos 465(H) 36 - 123 U/L 11/14/2024 4:07 PM EDT [facility] eGFR (CKD-EPIcr 2020) 39(L) >=60 mL/min/1.7 3 m2 11/14/2024 4:07 PM EDT [facility] Comment:Estimated GFR was ca lculated using the CKD-EPIcr (2020) equation refit without race. The equation is recommended by the National Kidney Foundation - [place] Society of Nephrology Task Force. Blood VENOUS BLOOD / Unknown Venipuncture / Unknown 11/14/2024 10:07 AM EDT 11/14/2024 10:07 AM EDT us Amarilis Nolan APRN CHEMISTRY ORDERABLES Kell orlando Result [facility] [address] [facility] , [address] [place] [phone] * (ABNORMAL) FERRITIN (11/14/2024 10:07 AM EDT) Ferritin 728(H) 30 - 150 ng/mL 11/14/2024 4:07 PM EDT [facility] [employer] [facility] Comment:The lower threshold of 30 is not statistically defined, nor internally validated. The threshold has been updated to more closely reflect a physiologic basis. Susanna De León et al. Physiologically based serum ferritin thresholds for iron deficiency in children and non- women: a [place] National Health and Nutrition Examination Surveys (NHANES) serial cross-sectional study. Lancet Haematol 202;8:e572-82. Blood VENOUS BLOOD / Unknown Venipuncture / Unknown 11/14/2024 10:07 AM EDT 11/14/2024 10:07 AM EDT Narrative [facility] [employer] - 11/14/2024 4:07 PM EDT Ingestion of rocio doses of biotin (>5 mg/day) taken within 8 hours of drawing blood sample can interfere with this immunoassay test. Amarilis Nolan APRN CHEMISTRY ORDERABLES Kell l Result Performing Organization Address [facility] de Phone Number [facility] [address] [facility] , [place] [address] * (ABNORMAL) IRON+TIBC (11/14/2024 10:07 AM EDT) Iron 26(L) 30 - 160 mcg/dL 11/14/2024 4:07 PM EDT [facility] [employer] Transferrin 153(L) 200 - 360 mg/dL 11/14/2024 4:07 PM EDT [facility], [facility] Transferrin Saturation 12(L) 20 - 50 % 11/14/2024 4:07 PM EDT [facility], [facility] TIBC 214(L) 250 - 400 mcg/dL 11/14/2024 4:07 PM EDT [employer], [facility] Blood VENOUS BLOOD / Unknown Venipuncture / Unknown 11/14/2024 10:07 AM EDT 11/14/2024 10:07 AM EDT Amarilis Nolan APRN CHEMISTRY ORDERABLES Kell l Result Performing Organization Address [facility]/ZIP Co de Phone Number [facility] [employer] [address] , [place] [address] * VITAMIN B12/ FOLIC ACID (11/14/2024 10:07 AM EDT) Vitamin B12 801 232 - 1,245 pg/mL 11/14/2024 4:02 PM EDT [facility] Folate 9.89 >=4.80 ng/mL 11/14/2024 4:02 PM EDT [facility] [employer] [facility] Blood VENOUS BLOOD / Unknown Venipuncture / Unknown 11/14/2024 10:07 AM EDT 11/14/2024 10:07 AM EDT Narrative [facility] - 11/14/2024 4:02 PM EDT Ingestion of rocio doses of biotin (>5 mg/day) taken within 8 hours of drawing blood sample can interfere with this immunoassay test. us Amarilis Nolan APRN CHEMISTRY ORDERABLES Kell orlando Result [facility] [employer] [address] , [place] [address] documented in this encounter Visit Diagnoses Diagnosis [...] documented as of this encounter Care Teams Last Repairer Helper Relationship Specialty Start Date End Date Luis Villasenor MD [address] [place], [place] [phone] PCP - OBGYN 01/09/10 Luis Villasenor MD [address] [place], [place] [id number] PCP - General 01/09/10 documented as of this encounter
--- OUTSIDE RECORDS SUMMARY | 2024-12-16 10:15 | XMS_ITS | Encounter Summary ---
Author Organization [place] [address] Care Team Providers Care Port Captain Name Role Phone Luis Villasenor MD Unavailable [phone] Luis Villasenor MD Primary Care Provider Reason for Visit * Reason Onset Date Comments Orders 09/22/2024 [facility] care Encounter Details Date Type Department Care Team (Late st Contact Info) Description 09/22/2024 Telephone SEP Sarah [facility] [place] [address] [address] Luis Villasenor MD [facility] [place] [phone] Orders ([facility]) Social [...] lois ) What Orders are being requested: Care Home Reason Orders are Needed (Diagnosis): check over vital - head to toe assessment and medication education Is a verbal order being requested: Yes If non-[facility], where should the order be faxed [...] 12/19/2024 9:00 AM EDT Office Visit [facility] [place] [facility] [address] [place] [phone] Amarilis Nolan, [employer] [address] [facility] [place] [address] documented as of this encounter Goals Goal [...] documented as of this encounter Care Teams Port Captain Relationship Specialty Start Date End Date Luis Villasenor MD [address] [facility] [place] [phone] PCP - OBGYN 01/09/10 Luis Villasenor MD [address] [facility] [place] [phone] PCP - General 01/09/10 documented as of this encounter
--- OUTSIDE RECORDS SUMMARY | 2024-12-16 10:15 | XMS_ITS | Encounter Summary ---
Author Organization [place] [address] Care Team Providers Care Inspector Weights And Measures Name Role Phone Luis Villasenor MD Unavailable [phone] Luis Villasenor MD Primary Care Provider Reason for Visit * Reason Onset Date Comments Orders 12/14/2024 SN Encounter Details Date Type Department Care Team (Late Contact Info) Description 12/14/2024 Telephone SEP Sarah [facility] [place] [address] [phone] Luis Villasenor MD [address] [facility] [place] [phone] Orders (SN) Social History Tobacco Use Types Packs/Day Years [...] encounter Miscellaneous Notes * Telephone Encounter - Alanna Kaye - 12/14/2024 3:24 PM EDT Select the most appropriate reason for this telephone message: Order Request Who is requesting the Order(s): Home Health Facility: [facility] (Caller name: Willem) What Orders are being requested: Usp Reason Orders are Needed (Diagnosis): Malignant neoplasm of the liver Is a verbal order being requested: Yes If non-[facility], where should the order be faxed (include fax number): n/a Is this for in-patient or home health: Home Health (Frequency: Twice a week for four weeks) Return Method of Communication: Phone Call Additional Information: If PCP wants HH to do any kind of fluids they are able. Please advise. documented in this encounter Plan of Treatment Upcoming Encounters Date Type Department Care Team (Late st Contact Info) Description 12/19/2024 9:00 AM EDT Office Visit [facility] [place] [facility] [address] [place] [phone] Amarilis Nolan, WELDING MACHINE OPERATOR FRICTION [address] [facility] [place] [address] documented as of this encounter Goals Goal [...] documented as of this encounter Care Teams Inspector Weights And Measures Relationship Specialty Start Date End Date Luis Villasenor MD [address] [facility] [facility] [place] [phone] PCP - OBGYN 01/09/10 Luis Villasenor MD [address] [facility] [place] [phone] PCP - General 01/09/10 documented as of this encounter
--- OUTSIDE RECORDS SUMMARY | 2024-12-16 10:15 | XMS_ITS | Encounter Summary ---
Author Organization [place] [address] Care Team Providers Care Medical Records Supervisor Name Role Phone Luis Villasenor MD Unavailable [phone] Luis Villasenor MD Primary Care Provider Reason for Visit * Reason Onset Date Comments Orders 10/07/2024 VO for OT Encounter Details Date Type Department Care Team (Late Contact Info) Description 10/07/2024 Telephone SEP Sarah [facility] [place] [address] Luis Villasenor MD [place] [facility] [phone] Orders (VO for OT) Social History [...] a verbal order being requested: Yes If non-[facility], where should the order be faxed (include fax number): NA Frequency: 2 x wk for 4 wks Return Method of Communication: Phone Call Additional Information: please advise caller - thank you documented in this encounter Plan of Treatment Upcoming Encounters Date Type Department Care Team (Late st Contact Info) Description 12/19/2024 9:00 AM EDT Office Visit [facility] [address] [place], [place] [phone] Amarilis Nolan APRN [address] [facility] [place] [address] documented as of this encounter Goals Goal [...] documented as of this encounter Care Teams Medical Records Supervisor Relationship Specialty Start Date End Date Lius Villasenor MD [address] [place] [address] [place] [phone] PCP - OBGYN 01/09/10 Luis Villasenor MD [address] [place] [address] [place] [phone] PCP - General 01/09/10 documented as of this encounter
--- OUTSIDE RECORDS SUMMARY | 2024-12-16 10:15 | XMS_ITS | Encounter Summary ---
Author Organization [place] [address] Care Team Providers Care Automatic Glove Former Name Role Phone Luis Villasenor MD Unavailable [phone] Luis Villasenor MD Primary Care Provider Reason for Visit * Reason Onset Date Comments 911/Red Flag 09/19/2024 possible blood c lot Encounter Details Date Type Department Care Team (Late st Contact Info) Description 09/19/2024 Nurse [address] SEP Sarah [facility] [place] [phone] Luis Villasenor MD [address] [facility] [place] [phone] Peripheral edema (Primary Dx) Social History [...] EDT Office Visit [facility] [place] [facility] [address] [place] [phone] Amarilis Nolan APRN [address] [facility] [place] [address] documented as of this encounter Goals Goal [...] documented as of this encounter Care Teams Automatic Glove Former Relationship Specialty Start Date End Date Luis Villasenor MD [address] [facility] [place] [phone] PCP - OBGYN 01/09/10 Luis Villasenor MD [address] [facility] [place] [phone] PCP - General 01/09/10 documented as of this encounter
--- OUTSIDE RECORDS SUMMARY | 2024-12-16 10:15 | XMS_ITS | Encounter Summary ---
Author Organization [place] [address] Care Team Providers Care Sorority Mother Name Role Phone Luis Villasenor MD Unavailable [phone] Luis Villsaenor MD Primary Care Provider [phone] Encounter Details Date Type Department Care Team (Late Contact Info) Description 10/26/2024 Orders Only SEP Sarah [address] [place] [phone] Amarilis Nolan, NETWORK OPERATIONS CENTER TECHNICIAN [address] [place] [address] Flank pain (Primary Dx) Social History [...] AM EDT Office Visit TODD [facility]STIAN[facility] [address] [place] [address] Amarilis Nolan, NETWORK OPERATIONS CENTER TECHNICIAN [address] [place] [address] documented as of this encounter Goals Goal Patient Goal Type Associated Problems Recent Progress Patient-Stated? Author Blood Pressure < 140/90 Blood Pressure 124/78(2024 9:10 AM EDT) No Grace Redmond CMA Maintain a healthy diet, exercise regularly and maintain an ideal body weight General No Grace Redmond CMA Stay Tobacco Free Lifestyle No Grace Redmond CMA documented as of this encounter Results [...] Final Result [facility] [address] [facility] , [place] [address] * (ABNORMAL) COMPREHENSIVE METABOLIC PANEL (10/26/2024 11:03 [...] 10/26/2024 4:28 PM EDT [facility] Total Protein 7.4 6.4 - 8.3 gm/dL 10/26/2024 4:28 PM EDT [facility] Bili Total 0.7 0.2 - 1.3 mg/dL 10/26/2024 4:28 PM EDT [facility] ALT 11 <=41 U/L 10/26/2024 4:28 PM EDT [facility] AST 28 <=40 U/L 10/26/2024 4:28 PM EDT [facility] Alk Phos 259(H) 36 - 123 U/L 10/26/2024 4:28 PM EDT [facility] eGFR (CKD-EPIcr 2020) 43(L) >=60 mL/min/1.7 3 m2 10/26/2024 4:28 PM EDT [facility] Comment:Estimated GFR was ca lculated using the CKD-EPIcr (2020) equation refit without race. The equation is recommended by the National Kidney Foundation - [place] [employer] of Nephrology Task Force. Blood VENOUS BLOOD / Unknown Venipuncture / Unknown 10/26/2024 11:03 AM EDT 10/26/2024 11:03 AM EDT us Amarilis Nolan NETWORK OPERATIONS CENTER TECHNICIAN CHEMISTRY ORDERABLES Kell darion Result [facility], [address] , [place] [address] documented in this encounter Visit Diagnoses Diagnosis Flank pain- Primary Abdominal pain, unspecified site documented in this encounter Additional Health Concerns Assessment Noted Time A fall risk assessment has been complete d for the patient 06/14/2024 9:03 AM EST documented as of this encounter Care Teams Sorority Mother Relationship Specialty Start Date End Date Luis Villasenor MD [address] [place] [phone] PCP - OBGYN 01/09/10 Luis Villasenor MD [address] [place], [place] [address] PCP - General 01/09/10 documented as of this encounter
--- OUTSIDE RECORDS SUMMARY | 2024-12-16 10:15 | XMS_ITS | Encounter Summary ---
Author Organization [facility] [place] [address] Care Team Providers Care Boat Loader Name Role Phone Luis Villasenor MD Unavailable [phone] Luis Villasenor MD Primary Care Provider Reason for Visit * Reason Onset Date Comments Orders 09/30/2024 SN,verbal Encounter Details Date Type Department Care Team (Late Contact Info) Description 09/30/2024 Telephone SEP Sarah [facility] [place] [address] Luis Villasenor MD [address] [place] [address] Orders (SN,verbal ) Social History Tobacco [...] order being requested: Yes If non-[facility], where should the order be [...] EDT Office Visit [facility] [place] [facility] [address] [place] [address] Amarilis Nolan, STRAIGHT KNIFE MACHINE CUTTER [address] [place] [address] documented as of this encounter Goals Goal [...] documented as of this encounter Care Teams Boat Loader Relationship Specialty Start Date End Date Luis Villasenor MD [address] [place] [address] PCP - OBGYN 01/09/10 Luis Villasenor MD [address] [place] [address] PCP - General 01/09/10 documented as of this encounter
--- OUTSIDE RECORDS SUMMARY | 2024-12-16 10:15 | XMS_ITS | Encounter Summary ---
Author Organization [place] [address] Care Team Providers Care Media Law Faculty Member Name Role Phone Luis Villasenor MD Unavailable [phone] Luis Villasenor MD Primary Care Provider Encounter Details Date Type Department Care Team (Late Contact Info) Description 11/30/2024 Orders Only SEP Sarah [address] [place], [phone] Pau Gray, A [address] [place] [address] 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 due to chronic blood [...] EDT Office Visit SEP Sarah PC [address] [place] [address] Amarilis Nolan, UNIX ADMINISTRATOR [address] [facility] [place] [address] documented as of this encounter Goals Goal [...] as of this encounter Care Teams Media Law Faculty Member Relationship Specialty Start Date End Date Luis Villasenor MD [address] [place] [address] [place] [phone] PCP - OBGYN 01/09/10 Luis Villasenor MD [address] [facility] [phone] PCP - General 01/09/10 documented as of this encounter
--- OUTSIDE RECORDS SUMMARY | 2024-12-16 10:15 | XMS_ITS | Encounter Summary ---
Author Organization [place] [address] Care Team Providers Care Unemployment Insurance Director Name Role Phone Luis Villasenor MD Unavailable [phone] Luis Villasenor MD Primary Care Provider [phone] Reason for Visit * Reason Onset Date Comments Relaying Information 10/26/2024 Reporting n ew issues with pain. Encounter Details Date Type Department Care Team (Late st Contact Info) Description 10/26/[address] [facility] [place] [address] Luis Villasenor MD [employer] [facility] [place] [address] Relaying Information (Reporting new issues with [...] EDT Office Visit [facility] [place] [facility] [address] [place] [phone] Amarilis Nolan, PST SUPERVISOR [address] [facility] [place] [address] documented as of this encounter Goals Goal [...] documented as of this encounter Care Teams Unemployment Insurance Director Relationship Specialty Start Date End Date Luis Villasenor MD [address] [facility] [place] [phone] PCP - OBGYN 01/09/10 Luis Villasenor MD [address] [place] [address] PCP - General 01/09/10 documented as of this encounter
--- OUTSIDE RECORDS SUMMARY | 2024-12-16 10:15 | XMS_ITS | Encounter Summary ---
Author Organization [place] [address] Care Team Providers Care Interventional Radiology Technologist Name Role Phone Luis Villasenor MD Unavailable [phone] Luis Villasenor MD Primary Care Provider Reason for Visit * Reason Onset Date Comments Other 10/11/2024 FYI- pt is wanti palliative care, home health asking if pcp would like to do this. Encounter Details Date Type Department Care Team (Late st Contact Info) Description 10/11/2024 Telephone SEP Sarah [address] [place] [address] Luis Villasenor MD [address] [place] [address] Other (FYI- pt is wanting palliative [...] relationship to patient if not the patient): [facility] home health- Yarelis What is [...] AM EDT Office Visit TODD [facility]IAN[facility] [address] [place] [address] Amarilis Nolan APRN [address] [place] [address] documented as of this encounter Goals Goal [...] documented as of this encounter Care Teams Interventional Radiology Technologist Relationship Specialty Start Date End Date Luis Villasenor MD [address] [place] [address] PCP - OBGYN 01/09/10 Luis Villasenor MD [address] [place] [address] PCP - General 01/09/10 documented as of this encounter
--- OUTSIDE RECORDS SUMMARY | 2024-12-16 10:15 | XMS_ITS | Encounter Summary ---
Author Organization [place] [address] Care Team Providers Care Proposal Writer Name Role Phone Luis Villasenor MD Unavailable [phone] Luis Villasenor MD Primary Care Provider [phone] Encounter Details Date Type Department Care Team (Late Contact Info) Description 12/05/2024 Orders Only SEP Sarah [address] [place], [phone] Pau Gray, A [address] [place] [address] 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 due to chronic blood [...] EDT Office Visit SEP Sarah PC [address] [place] [address] Amarilis Nolan, TEACHER VOCATIONAL TRAINING [address] [facility] [place] [address] documented as of this encounter Goals Goal [...] documented as of this encounter Care Teams Proposal Writer Relationship Specialty Start Date End Date Luis Villasenor MD [address] [place] [address] [place] [phone] PCP - OBGYN 01/09/10 Luis Villasenor MD [address] [facility] [address] PCP - General 01/09/10 documented as of this encounter
--- OUTSIDE RECORDS SUMMARY | 2024-12-16 10:15 | XMS_ITS | Encounter Summary ---
Author Organization [place] [address] Care Team Providers Care Body Shop Mechanic Name Role Phone Luis Villasenor MD Unavailable [phone] Luis Villasenor MD Primary Care Provider Reason for Visit * Reason Onset Date Comments Follow Up 12/01/2024 Need diagnosis c ode on infusion order - ok to handwrite on order - please fax to [phone] Encounter Details Date Type Department Care Team (Late st Contact Info) Description 12/01/2024 Telephone SEP Sarah [facility] [place] [address] Luis Villasenor MD [address] [facility] [place] [address] Follow Up (Need diagnosis code on infusion order - ok to handwrite on order - please fax to [phone]) Social History Tobacco Use Types Packs/Day Years [...] of Assessment Author No 02/09/2020 8:59 AM gNhia Aguirre CMA * Does this person have [...] EDT Please advise * Telephone Encounter - Akilah Munoz RMA - 12/01/2024 11:49 AM EDT Select the most appropriate reason for this telephone message: Follow Up Follow Up Who is Calling:[facility] (include which hospital and caller's name) What is the caller following up on (make sure to reference any prior documentation/encounter):Need diagnosis code on infusion order - ok to handwrite on order - please fax to [phone]. Further follow-up needed?:Yes Return Method of Communication:Phone call Additional Information:N/A Fax number [phone]. Thank you. documented in this encounter Plan of Treatment Upcoming Encounters Date Type Department Care Team (Late st Contact Info) Description 12/19/2024 9:00 AM EDT Office Visit TODD [facility]STIANSON [address] [place] [phone] Amarilis Nolan APRN [address] [place] [address] documented as of this encounter Goals Goal [...] documented as of this encounter Care Teams Body Shop Mechanic Relationship Specialty Start Date End Date Luis Villasenor MD [address] [place] [address] PCP - OBGYN 01/09/10 Luis Villasenor MD [address] [place] [address] PCP - General 01/09/10 documented as of this encounter
--- OUTSIDE RECORDS SUMMARY | 2024-12-16 10:16 | XMS_ITS | Encounter Summary ---
Author Organization [place] [address] Care Team Providers Care Facility Practice Specialist Name Role Phone Luis Villasenor MD Unavailable [phone] Luis Villasenor MD Primary Care Provider [phone] Reason for Visit * Reason Onset Date Comments Orders 11/25/2024 Encounter Details Date Type Department Care Team (Late Contact Info) Description 11/25/2024 Telephone SEP Sarah [address] [place] [address] Amarilis Nolan, EARTH BORING MACHINE OPERATOR [address] [place] [address] Orders Social History Tobacco Use Types [...] EDT Office Visit [facility] [place] [facility] [address] [place], [place] [phone] Amarilis Nolan APRN [address] [facility] [place] [id number] documented as of this encounter Goals Goal [...] documented as of this encounter Care Teams Facility Practice Specialist Relationship Specialty Start Date End Date Luis Villasenor MD [address] [place] [address] [place] [address] PCP - OBGYN 01/09/10 Luis Villasenor MD [address] [place] [address] [place] [phone] PCP - General 01/09/10 documented as of this encounter
--- OUTSIDE RECORDS SUMMARY | 2024-12-16 10:16 | XMS_ITS | Encounter Summary ---
Author Organization [place] [address] Care Team Providers Care Nursery Supervisor Name Role Phone Luis Villasenor MD Unavailable [phone] Luis Villasenor MD Primary Care Provider Encounter Details Date Type Department Care Team (Latest Contact Info) Description 10/28/2024 Results Follow-Up SEP Sarah [address] [place] [phone] Amarilis Nolan, DIE KEEPER [address] [place] [address] [...] AM EDT Office Visit TODD [facility]RISTIANSON [address] [place] [phone] Amarilis Nolan, DIE KEEPER [address] [place] [address] documented as of this encounter Goals Goal [...] documented as of this encounter Care Teams Nursery Supervisor Relationship Specialty Start Date End Date Luis Villasenor MD [address] [place] [phone] PCP - OBGYN 01/09/10 Luis Villasenor MD [address] [place] [phone] PCP - General 01/09/10 documented as of this encounter
--- OUTSIDE RECORDS SUMMARY | 2024-12-16 10:16 | XMS_ITS | Continuity of Care Document ---
Author Organization [facility] Address [address] [place] [address] Care Team Providers Care Publishing Director Name Role Phone ADDY GONZALES General Surgeon CARLOS A COATS Primary Care Provider VERONIKA RIVER Assistant Department Manager Assessment No assessment recorded. Plan of Treatment Reminders Order Date Submit Date Provider Last Modified By Organization Details Last Modified Time Details Appointments OV EST 15 2024 10:30A M Tomy King MD Not available Not available Not available Lab carcinoem bryonic Ag, quant, serum or plasma 2024 025 [email or web address] [facility], [address] [place], [address], 11/08/2024 10:04:49 CMP, serum or plasma 2024 025 [facility], [address] [place], [address], 11/01/2024 15:54:32 CBC w/ diff 2024 025 [email or web address] [facility], [address] [place], [address], 11/08/2024 10:04:49 Referral None recorded. Procedures None recorded. Surgeries None recorded. Imaging None recorded. Medication Orders nystatin 100,000 unit/gram topical powder 2024 025 [id number], [address] [place], [address], 11/01/2024 13:56:59 Patient TargetsNo targets recorded. Patient InstructionsNo instructions recorded. Reason for Referral None Reported. Problems Name Problem SNOMED Code Status Onset Date Resolution Date Notes Provider Name and Address Organization Details Recorded Time Metastatic malignant neoplasm to liver 72224749 Active [address], [place], [address] , [facility] & [place] 3 14:27:25 Mass of colon 823490499 Active [address], [facility] [address] , [facility] & [place] 3 14:27:30 Anemia 997713912 Active [address], [facility] [address] , [facility] & [place] 3 14:27:36 Nausea and vomiting 92668046 Active [address] [place], [address] , [facility] & [place] 3 14:27:46 Unintentional weight loss 920439698 [facility] [address] [facility] [address] , [facility] & [place] 3 16:13:07 Night sweats 89790097 [facility] [address] [facility] [address] , [facility] & [place] 3 16:13:12 Headache 81267533 [facility] & [place] 5 10:27:12 Problem Notes Documentation Provider Name and Address Organization Details Recorded Time Oncology Patient Navigator : ONN met with pt at [facility] with medical oncology. Pt states she is doing well at this time. Hospice consult was briefly discussed and pt declined at this time. ONN encouraged pt to reach out may any needs/concerns arise. [email or web address] [place] 11/01/2024 13:52:48 Procedures Surgical History Date Name Laterality Status Provider Name and Address Organization Details Recorded Time 04/29/20 23 Venipuncture completed Hanna Snider PA-C [address] [facility], [place], [address], [facility] & [place] 04/27/2023 15:05:29 04/15/20 23 Venipuncture completed Stephanie Maravilla [facility] & [place] 04/15/2023 15:24:55 hysterectomy completed Laurel Samuels [facility] & [place] 03/11/2023 15:30:22 extraction of cataract completed Laurel Samuels [facility] & [place] 03/11/2023 15:30:36 excision of colon completed Loree Tadeo [facility] & [place] 04/21/2023 11:32:07 Imaging Results None recorded. Procedure Notes None recorded. Medical Equipment None Reported. Allergies Allergen ID Allergen Name Allergen Category Reaction Reaction Severity Criticality Documentation Date Start Date Code Code System Note Provider Name and Address Organization Details Recorded Time 40324 tetracycl ine medicatio n hives Not available high 02/19/2023 03781 RxNorm Brandy Macielpretty [email or web address] & [place] 14:03:33 Medications Name Sig Start Date Stop [...] Updated DateTime 5 162.56 cm 33.5 kg/m2 17646.5 1 g 97.6 [degF] 98 % 98 % 75 /min 185/79 mm[Hg] [facility] [place] 13:16:39 Social History Question Answer Notes LastModified by Organizat ion Details LastModified Time Tobacco Smoking Status Never Smoker CURT Johnston [facility] & [place] 02/19/2023 14:02:59 What Is Your Level Of Caffeine Consumption? None [email or web address] Information not available 02/19/2023 What Was The Date Of Your Most Recent Tobacco Screening? 11/23/2023 [email or web address] Information not available 11/23/2023 Has Tobacco Cessation Counseling Been Provided? No [email or web address] Information not available 07/13/2023 Sex: Unknown Functional Status Question Answer Note LastModified by Organizat ion Details LastModified Time Do you use any illicit or recreational drugs? No [email or web address] Information not available 02/19/2023 Do you or have you ever used any other forms of tobacco or nicotine? No [email or web address] Information not available 02/19/2023 What is your level of alcohol consumption? None [email or web address] Information not available 02/19/2023 Mental Status None recorded. Family History Nothing Reported. Medical History No medical history recorded. Gynecological HistoryNo gynecological history recorded. Obstetrics History GPAL:G 0 P 0 0 0 0 Immunizations Vaccine Type Date Status Note Provider Nam e and Address Organization Details Recorded Time pneumococcal polysaccharide PPV23 7 completed Stephanie Maravilla [facility] & [place] 12/21/2023 09:56:34 Past Encounters Encounter ID Performer Location Encounter Start Date Encounter Closed Date Diagnosis/Indication Diagnosis SNOMED-CT Code Diagnosis ICD10 Code Diagnosis Note [id number] Hanna Snider PA-C [facility] [address] [address] [place] [address] 11/01/2024 13:00:10 11/01/2024 13:35:08 Antineoplastic chemotherapy regimen 739589122 Z51.11 Week 1 5FU Leucovorin Vectibix on [...] 25, 2024. Malignant tumor of ascending colon 695293865 C18.2 CT scan of the abdomen and [...] 8.2 hematocrit 29.0. MCV 67.9. Platelet count 035962. Normal cell differenti al. Low serum folate [...] study published in September 2022 in the [place] [employer] [facility] of combined Avastin therapy with [...] malignancy . Metastatic malignant neoplasm to liver 47871879 C78.7 CT scan of the abdomen and [...] any treatment for her malignancy . Nausea 781232612 R11.0 As needed Zofran and Phenergan prescribed [...] ons. Pain due t o neoplastic disease 3342081444 9102 G89.3 Abdominal pain has improved and pain is controlled with current pain medication s. Anemia 521257088 D64.9 Right-side d colon mass concerning for malignancy . Will assess for any signs of iron deficiency . Hemoglobin previously 8.0. Concern for blood loss from colon mass. Patient reports dark stools. Labs on August 10, 2024 with hemoglobin slightly low at 11.9. She is receiving infusional iron as needed. Adopted 996127112 Z62.89 8 Patient is adopted and discussed hereditary gene panel. Patient does have family history of her son having bladder cancer. [facility] hereditary panel sent Hypokalemia 86244249 E87 .6 Currently taking for potassium 20 mEq daily. Will follow up labs. 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 [...] reports depression has improved. Atopic conjunctivitis 23 2917481 H10.12 Conjunctiv itis due to Vectibix. This has improved. Iron defic iency anemia 32009052 D50.9 Receiving infusional iron as needed. Will continue to monitor. Insomnia 024389212 G47.0 0 Patient has had difficulty sleeping for most of her life. She has tried multiple medication s without relief. She is tried Mirtazapin e and lorazepam without improvemen t of insomnia. Discussed trying trazodone instead. Restless legs 66908106 G 25.81 Patient taking Requip for restless legs. Generalized rash 3699295 06 R21 Rash due to Vectibix. This has improved. Atrial fibrillation 4943 6004 I48.91 Patient has been diagnosed with congestive heart failure and atrial fibrillati on. She has been started on Coumadin. She is following with the Coumadin clinic at [facility]. Congestive heart failure 66260425 I50.9 Patient has been diagnosed with congestive heart failure. She has started lasix and is following with a cardiologi . Cachexia 976865041 R64 Patient has had decreased appetite and weight loss. She is drinking nutritiona l supplement s. Discussed appetite stimulant. Patient previously refused. She has started on Megace. She does not like the taste of Megace. Discussed Megace tablets instead of liquid but patient declines at this time. Will continue to monitor History of deep vein thrombosis 224282688 Z86.718 Patient developed right lower extremity pain [...] repeat venous duplex. Drug therapy finding 309 810623 Z79.01 She continues on Coumadin due to a fib. She is following with the Coumadin clinic at [facility]. Candidiasis of skin 4988 3006 B37.2 [...] Name 11/01/2024 1 [place] Vicky Roblero [id number] Vicky Roblero 11/01/2024 2 [employer] (MEDICARE SUPPLEMENT) Vicky Roblero [id number] Vicky Roblero Notes Date Note Type Note [...] 8.2 hematocrit 29.0. MCV 67.9. Platelet count 752114. Normal cell differential. Low serum folate of [...] with metastatic colorectal cancer. Discussed chemotherapy with [place] based regimen with 5FU Leucovorin if [...] is following with the Coumadin clinic at [facility]. She is scheduled for cardiac MRI. [...] study published in September 2022 in the [place] [facility] of combined Avastin therapy with [...] to have if needed. Hanna Snider PA-C [address], [place], [address], [facility] [place] & [place] 11/01/2024 13:57:44 OBGyn Episode No OBEpisode recorded.
--- OUTSIDE RECORDS SUMMARY | 2024-12-16 10:16 | XMS_ITS | Encounter Summary ---
Author Organization [place] [address] Care Team Providers Care Heel Burnisher Name Role Phone Luis Villasenor MD Unavailable [phone] Luis Villasenor MD Primary Care Provider Reason for Visit * Reason Onset Date Comments Other 11/01/2024 Encounter Details Date Type Department Care Team (Late Contact Info) Description 11/01/2024 Telephone [facility] [address] [place] [address] Luis Villasenor MD [address] [place] [address] Other Social History Tobacco Use Types [...] EDT Office Visit [facility] [address] [place] [phone] Amarilis Nolan APRN [address] [place] [address] documented as of this encounter Goals Goal [...] documented as of this encounter Care Teams Heel Burnisher Relationship Specialty Start Date End Date Luis Villasenor MD [address] [place] [address] [place] [phone] PCP - OBGYN 01/09/10 Luis Villasenor MD [address] [place] [address] [place] [phone] PCP - General 01/09/10 documented as of this encounter
--- OUTSIDE RECORDS SUMMARY | 2024-12-16 10:16 | XMS_ITS | Encounter Summary ---
Author Organization [place] [address] Care Team Providers Care Science Tutor Name Role Phone Luis Villasenor MD Unavailable [phone] Luis Villasenor MD Primary Care Provider Encounter Details Date Type Department Care Team (Late st Contact Info) Description 09/26/2010 Orders Only [facility] [address] [place] [address] Jennifer Nagel MD [address] [facility] [place], [place] [id number] Social History Tobacco Use Types Packs/Day Years [...] as of this encounter Plan of Treatment Upcoming Encounters Date Type Department Care Team (Late st Contact Info) Description 12/19/2024 9:00 AM EDT Office Visit [facility] [address] [place] [phone] Amarilis Nolan, PROFESSIONAL NURSE [address] [place] [address] documented as of this encounter Procedures Procedure [...] a practice prior to that practice using [facility] for Medical Records. Performing Provider: JENNIFER NAGEL Jennifer Nagel MD IMG ECHO ORDERABLES Final Result documented in this encounter Visit Diagnoses Not on filedocumented in this encounter Care Teams Science Tutor Relationship Specialty Start Date End Date Luis Villasenor MD [address] [place] [phone] PCP - OBGYN 01/09/10 Luis Villasenor MD [address] [place] [address] PCP - General 01/09/10 documented as of this encounter
--- OUTSIDE RECORDS SUMMARY | 2024-12-16 10:16 | XMS_ITS | Clinical Summary ---
Author Organization [facility] Address [address] [place] [address] Phone Care Team Providers Care Electrical System Specialist Name Role Phone Luis Villasenor MD Unavailable [phone] Luis Villasenor MD Primary Care Provider Allergies [...] IVPB 20 mL 12/06/19 25 025 Active Problems Patient Care Coordination No te [...] early 2024 per patient decision Managed by [facility] Oncology and Hematology Assessment & Plan (10/02/2024 10:12 PM EDT): - has active disease - managed by Oncology -has stopped treatment 07/2024 Assessment & Plan (06/14/2024 9:41 PM EST): - has active disease - currently undergoing chemotherapy / immunotherapy - managed by Oncology, [facility] Oncology and Hematology Malignant tumor of ascending colon 06/14/2024 Overview (06/14/2024): CT scan 01/2023 with multiple masses of liver and ascending colon thickening. 04/2023, R hemicolectomy and anastomosis, pathology of invasive moderately differentiated adenocarcinoma. Metastatic adenocarcinoma in 2/10 lymph nodes. Wedge resection of the liver with metastatic adenocarcinoma consistent with colon primary. Continues with chemotherapy [id number]. Managed by [facility] Oncology and Hematology Assessment & Plan (10/02/2024 10:12 PM EDT): - has active disease - managed by Oncology -has stopped treatment 07/2024 Assessment & Plan (06/14/2024 9:41 PM EST): - has active disease - currently undergoing chemotherapy / immunotherapy - managed by Oncology, [facility] Oncology and Hematology MCFP (current) use of anticoagulants 2024 Overview (10/02/2024): Coumadin therapy, Afib Assessment & Plan (10/02/2024 10:12 PM EDT): On coumadin therapy, managed by the coumadin clinic at [facility], Dr. Youngblood, cardiology. Taking 5mg M// and 2.5mg other days Paroxysmal atrial fibrillation 06/14/2024 Overview (06/14/2024): Dr. 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 DNR (do not resuscitate) 03/30/2015 Living will, counseling/discussion 03/30/2015 Overview (02/09/2020): Declines terminal operator vent support and terminal operator hydration and nutrition via feeding tube or [...] glucose tolerance) Overview (03/30/2015): Calorie restrict attempt [id number] calories per day. Decrease starches like bread [...] Encounters Date Type Department Care Team Description 12/14/[address] [place] [address] Luis Villasenor MD Orders (SN) 12/05/2024 Orders Only [address] [place] [address] Pau Gray, RMA 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 due to chronic blood loss 12/01/[address] [place] [address] Luis Villasenor MD Follow Up (Need diagnosis code on infusion order - ok to handwrite on order - please fax to [phone]) 11/30/2024 Orders Only [address] [place] [address] Pau Gray, RMA 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 due to chronic blood loss 11/28/2024 Orders Only [address] [place] [address] Amarilis Nolan, MIGUEL ANGEL 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 due to chronic blood loss (Primary Dx) 11/25/[address] [place] [address] Amarilis Nolan BILINGUAL MANAGER Orders 11/14/2024 9:00 AM EDT Office Visit [address] [place] [address] Amarilis Nolan, BILINGUAL MANAGER 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) (Primary Dx); History of DVT (deep vein thrombosis); Paroxysmal atrial fibrillation (HCC); Cobalamin deficiency; Flank pain; Dehydration; Blood loss 11/11/2024 Orders Only [address] [place] [address] Amarilis Nolan APRN Flank pain (Primary Dx); Blood loss; Dehydration 11/04/2024 11:15 AM EDT Office Visit [address] [place] [address] Amarilis Nolan, MIGUEL ANGEL Diverticulitis of large intestine without perforation or abscess without bleeding (Primary Dx); Peripheral edema; Malignant tumor of ascending colon (HCC); 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 ///) 10/11/[address] [place] [address] Luis Villasenor MD Other (FYI- pt is wanting palliative care, home health asking if pcp would like to do this. 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); MCFP (current) use of anticoagulants 09/22/[address] [place] [address] Luis Villasenor MD Orders (personal touch home care) 09/19/2024 Nurse Triage [address] [place] [phone] Luis Villasenor MD Peripheral edema (Primary Dx) from Last 3 Months Immunizations Immunization Administration Dates Next Due Pneumococcal Conjugate Vaccine 13 Valent 015 Pneumococcal Polysaccharide 23 Valent 12/04/2016 Tdap 01/20/2011 01/20/2021 Surgical History Surgery Date Site/Laterality Comments HYSTERECTOMY secondary to uterine fibroids TONGUE SURGERY benign tumor removed CARDIAC CATHETERIZATION CATARACT REMOVAL 07/09/2013 Left LEFT EYE CATARACT EXTRACTION WITH PHACOEMULSIFICATION AND INTRAOCULAR LENS; Surgeon: Keith yLnn MD; Location: [facility]; Service: Ophthalmology Medical devices from this surgery are in the Medical Devices section. CATARACT REMOVAL 08/03/2013 Eye/Right RIGHT EYE CATARACT EXTRACTION WITH PHACOEMULSIFICATION AND INTRAOCULAR LENS ; Surgeon: Keith Lynn MD; Location: [facility]; Service: Ophthalmology Medical devices from this [...] 11/04/2024 11:10 AM EDT Plan of Treatment Upcoming Encounters Date Type Department Care Team (Late st Contact Info) Description 12/19/2024 9:00 AM EDT Office Visit [facility] [address] [place] [address] Amarilis Nolan, BILINGUAL MANAGER [address] [place] [address] Health Maintenance Due Date Last Done Comments [...] history exists Influenza Vaccine (#1) 2025 07/12/2015 (Melaniein ed) Kidney Health: eGFR 11/14/2025 11/14/2024, 10/26/2024, [...] [place] [facility] Medical Devices Implanted Type Area Certified Rehabilitation Counselor Device Identifier Shelf Expiration Date Model / Serial / Lot Lens Intraocular 23.0 Diopter Acrysof Iq 13.0mm Length 6.0mm - [id number] Implanted:Qty: 1 on 07/09/2013 by Keith Lynn MD at [facility] Left: Eye [facility] 01/30/2018 [id number]. 0 / [id number] / Lens Intraocular 23.5 Diopter Acrysof Iq 13.0mm Length 6.0mm - [id number] Implanted:Qty: 1 on 08/03/2013 by Keith Lynn MD at [facility] Right: Eye [facility] 03/01/2018 [id number]. 5 / [id number] / Procedures Procedure Name Priority Date/Time [...] mg/dL 11/14/2024 4:07 PM EDT [facility] Transferrin Saturation 12(L) 20 - 50 % 11/14/2024 4:07 PM EDT [facility] TIBC 214(L) 250 - 400 mcg/dL 11/14/2024 4:07 PM EDT [facility] Blood VENOUS BLOOD / Unknown Venipuncture / Unknown 11/14/2024 10:07 AM EDT 11/14/2024 10:07 AM EDT Amarilis Nolan APRN CHEMISTRY ORDERABLES Kell l Result Performing Organization Address [facility] de Phone Number [facility], [address] , [place] [address] * VITAMIN B12/ FOLIC ACID (11/14/2024 10:07 AM EDT) Pathologist [facility] Vitamin B12 801 232 - 1,245 pg/mL 11/14/2024 4:02 PM EDT [facility] Folate 9.89 >=4.80 ng/mL 11/14/2024 4:02 PM EDT [facility] Blood VENOUS BLOOD / Unknown Venipuncture / Unknown 11/14/2024 10:07 AM EDT 11/14/2024 10:07 AM EDT Narrative [facility], [facility] - 11/14/2024 4:02 PM EDT Ingestion of rocio doses of biotin (>5 mg/day) taken within 8 hours of drawing blood sample can interfere with this immunoassay test. Amarilis Nolan APRN CHEMISTRY ORDERABLES Kell l Result Performing Organization Address [facility] [[email or web address]] Co de Phone Number [facility], [address] , [place] [address] * (ABNORMAL) CBC WITH DIFF (11/14/2024 10:07 AM EDT) [facility] WBC 10.0 3.7 - 10.3 x10(3)/mcL 11/14/2024 [...] 3:44 PM EDT [facility] [place] Percent 8.3 % 11/14/2024 3:44 PM EDT [facility] Eos Percent 3.5 % 11/14/2024 3:44 PM EDT [facility] Baso Percent 0.6 % 11/14/2024 3:44 PM EDT [facility] Neut # 7.7(H) 1.6 - 6.1 x10(3)/[facility] 11/14/2024 3:44 PM EDT [facility] Comment:Neutrophils equals s egs plus bands IMMGRAN# 0.1 0.0 - 0.1 x10(3)/[facility] 11/14/2024 3:44 PM EDT [facility] Comment:Automated count of m etamyelocytes, myelocytes and promyelocytes. An absolute IG <0.1 is reported as 0.0. Lymph # 1.0(L) 1.2 - 3.9 x10(3)/[facility] 11/14/2024 3:44 PM EDT [facility] [place] # 0.8 0.3 - 0.9 x10(3)/[facility] 11/14/2024 3:44 PM EDT [facility] Eos# 0.4 0.0 - 0.5 x10(3)/[facility] 11/14/2024 3:44 PM EDT [facility] Baso # 0.1 0.0 - 0.1 x10(3)/[facility] 11/14/2024 3:44 PM EDT [facility] Blood VENOUS BLOOD / Unknown Venipuncture / Unknown 11/14/2024 10:07 AM EDT 11/14/2024 10:07 AM EDT Amrailis Nolan BILINGUAL MANAGER HEMATOLOGY ORDERABLES Fin al Result [facility] [address] , [place] [address] * (ABNORMAL) FERRITIN (11/14/2024 10:07 AM EDT) [facility] Ferritin 728(H) 30 - 150 ng/mL 11/14/2024 4:07 PM EDT [facility] Comment:The lower threshold of 30 is not [...] 11/14/2024 10:07 AM EDT Narrative [facility] - 11/14/2024 4:07 PM EDT Ingestion of rocio doses of biotin (>5 mg/day) taken within 8 hours of drawing blood sample can interfere with this immunoassay test. us Amarilis Nolan APRN CHEMISTRY ORDERABLES Kell orlando Result [facility] [address] , [place] [address] * (ABNORMAL) COMPREHENSIVE METABOLIC PANEL (11/14/2024 10:07 [...] mg/dL 11/14/2024 4:07 PM EDT [facility] Albumin 3.4 3.2 - 4.6 gm/dL 11/14/2024 4:07 PM EDT [facility] Total Protein 7.8 6.4 - 8.3 gm/dL 11/14/2024 4:07 PM EDT [facility] Bili Total 0.6 0.2 - 1.3 mg/dL 11/14/2024 4:07 PM EDT [facility] ALT <5 <=41 U/L 11/14/2024 4:07 PM EDT [facility] AST 23 <=40 U/L 11/14/2024 4:07 PM EDT [facility] Alk Phos 465(H) 36 - 123 U/L 11/14/2024 4:07 PM EDT [facility] eGFR (CKD-EPIcr 2020) 39(L) >=60 mL/min/1.7 3 m2 11/14/2024 4:07 PM EDT [facility] Comment:Estimated GFR was ca lculated using the CKD-EPIcr (2020) equation refit without race. The equation is recommended by the National Kidney Foundation - [place] Society of Nephrology Task Force. Blood VENOUS BLOOD / Unknown Venipuncture / Unknown 11/14/2024 10:07 AM EDT 11/14/2024 10:07 AM EDT us Amarilis Nolan BILINGUAL MANAGER CHEMISTRY ORDERABLES Kell orlando Result [facility] [address] , [place] [address] * URINE CULTURE (NO STAIN) (10/26/2024 11:17 AM EDT) Culture Multiple bacterial species isolated from urine consistent with urogenital commensal organisms. 10/27/2024 10:23 PM EDT [facility] Urine STRUCTURE OF URINARY TRACT PROPER / Unknown 10/26/2024 11:17 AM EDT 10/26/2024 11:17 AM EDT us Amarilis Nolan BILINGUAL MANAGER MICROBIOLOGY - GENERAL OR DERABLES Final Result [facility] [address] [place] [address] * (ABNORMAL) SEP URINALYSIS POC [...] CARE TEST ORDERABLES Fi nal Result [facility] [address] [place] [address] * (ABNORMAL) HEMOGLOBIN A1C (09/08/2022 2:38 PM EDT) Hgb A1C 7.3(H) 4.2 - 5.6 % 09/08/2022 8:16 PM EDT [facility] Est. Avg Glucose 163 mg/dL 09/08/2022 8:16 PM EDT [facility] Blood VENOUS BLOOD / Unknown Venipuncture / Unknown 09/08/2022 2:38 PM EDT 09/08/2022 2:38 PM EDT Narrative [facility] - 09/08/2022 8:16 PM EDT REFERENCE RANGE: Normal: 4.0-5.6% Pre-diabetes: 5.7-6.4% Provisional diagnosis of diabetes: >6.4% Hgb F>10% and anything which shortens red cell survival, such as hemolytic anemia, or unstable hemoglobin variants such as HbSS, HbSC, or HbCC, will lower the HbA1c value associated with a given level of glycemic control. Luis Villasenor MD CHEMISTRY ORDERABLES Final Result [facility] [address] , [place] [address] * LIPID PANEL REFLEX (02/09/2020 9:38 AM EDT) Cholesterol 157 <200 mg/dL 02/09/2020 4:17 PM EDT [facility] Comment: < 200 Desirable 200 - 239 Borderline High >= 240 High Triglyceride 85 <150 mg/dL 02/09/2020 4:17 PM EDT [facility] Comment: < 150 Normal 150 - 199 Borderline High 200 - 499 High >= 500 Very High HDL 41 >=40 mg/dL 02/09/2020 4:17 PM EDT [facility] Comment: > 60 Optimal 40 - 60 Acceptable < 40 Low LDL Calculated 99 <100 mg/dL 02/09/2020 4:17 PM EDT [facility] Non-HDL-C Calculated 116 <=129 mg/dL 02/09/2020 4:17 PM EDT [facility], [facility] Comment: <130 Desirable 130-159 Above Desirable 160-189 Borderline High 190-219 High >= 220 Very High Fasting Specimen? Yes None 020 4:17 PM EDT [facility] Blood VENOUS BLOOD / Unknown Venipuncture / Unknown 02/09/2020 9:38 AM EDT 02/09/2020 9:42 AM EDT Luis Villasenor MD CHEMISTRY ORDERABLES Final Result [facility] [address] [facility], [place] [address] * HEPATITIS C ANTIBODY - SCREENING (12/04/2016 11:16 AM EDT) Hep C Ab Negative Negative [facility] Blood specimen (specimen) UPPER LIMB STRUCTURE / Unknown 12/04/2016 11:16 AM EDT 12/04/2016 4:52 PM EDT Luis Villasenor MD HEMATOLOGY ORDERABLES Final Result Performing Organization Address City/[facility] de Phone Number [facility] [address] [place] [address] from Last 3 Months or Most Recently Relevant to Health Maintenance Insurance [place]ICARE [place] [employer] [employer] [place] A [place] ADMINISTRATORS [facility] [employer] [place] MED[place]ARE [place] A [place] [employer] Advance Directives For more information, please contact: [phone] * Full Code (Latest Code Status on File) Date Activated Date Inactivated Comments 10/28/2018 11:51 AM 10/28/2018 9:26 PM Care Teams Electrical System Specialist Relationship Specialty Start Date End Date Luis Villasenor MD [address] [place] [phone] PCP - OBGYN 01/09/10 Luis [place] [address] [place] [address] PCP - General 01/09/10
--- OUTSIDE RECORDS SUMMARY | 2024-12-16 10:16 | XMS_ITS | Encounter Summary ---
Author Organization [facility] [address] Care Team Providers Care Underlay Stitcher Name Role Phone Luis Villasenor MD Unavailable [phone] Luis Villasenor MD Primary Care Provider Encounter Details Date Type Department Care Team (Late Contact Info) Description 11/28/2024 Orders Only [facility] [address] [place] [phone] Amarilis Noaln, DENTAL HYGIENIST MOBILE COORDINATOR [address] [place] [address] 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 due to chronic [...] EDT Office Visit [facility] [address] [place] [phone] Amarilis Nolan APRN [address] [facility] [place] [phone] documented as of this encounter Goals Goal [...] documented as of this encounter Care Teams Underlay Stitcher Relationship Specialty Start Date End Date Luis Villasenor MD [address] [facility] [place] [phone] PCP - OBGYN 01/09/10 Luis Villasenor MD [address] [facility] [place] [phone] PCP - General 01/09/10 documented as of this encounter
--- OUTSIDE RECORDS SUMMARY | 2024-12-16 10:16 | XMS_ITS | Encounter Summary ---
Author Organization [place] [address] Care Team Providers Care Crown Blocker Name Role Phone Luis Villasenor MD Unavailable [phone] Luis Villasenor MD Primary Care Provider Encounter Details Date Type Department Care Team (Late Contact Info) Description 11/11/2024 Orders Only [facility] [address] [place] [phone] Amarilis Nolan, GENERAL MATCHER [address] [place] [address] Flank pain (Primary Dx); Blood loss; [...] AM EDT Office Visit [facility] [address] [place] [phone] Amarilis Nolan, GENERAL MATCHER [address] [place] [address] documented as of this encounter Goals Goal [...] CBC WITH DIFF (11/14/2024 10:07 AM EDT) [facility] WBC 10.0 3.7 - 10.3 x10(3)/mcL 11/14/2024 [...] 3:44 PM EDT [facility] [place] Percent 8.3 % 11/14/2024 3:44 PM EDT [facility] Eos Percent 3.5 % 11/14/2024 3:44 PM EDT [facility] Baso Percent 0.6 % 11/14/2024 3:44 PM EDT [facility] Neut # 7.7(H) 1.6 - 6.1 x10(3)/[facility] 11/14/2024 3:44 PM EDT [facility] Comment:Neutrophils equals s egs plus bands IMMGRAN# 0.1 0.0 - 0.1 x10(3)/[facility] 11/14/2024 3:44 PM EDT [facility] Comment:Automated count of m etamyelocytes, myelocytes and promyelocytes. An absolute IG <0.1 is reported as 0.0. Lymph # 1.0(L) 1.2 - 3.9 x10(3)/[facility] 11/14/2024 3:44 PM EDT [facility] [place] # 0.8 0.3 - 0.9 x10(3)/[facility] 11/14/2024 3:44 PM EDT [facility] Eos# 0.4 0.0 - 0.5 x10(3)/[facility] 11/14/2024 3:44 PM EDT [facility] Baso # 0.1 0.0 - 0.1 x10(3)/[facility] 11/14/2024 3:44 PM EDT [facility] Blood VENOUS BLOOD / Unknown Venipuncture / Unknown 11/14/2024 10:07 AM EDT 11/14/2024 10:07 AM EDT us Amarilis Nolan GENERAL MATCHER HEMATOLOGY ORDERABLES Fin al Result [facility] [address] , [place] [address] * (ABNORMAL) COMPREHENSIVE METABOLIC PANEL [...] recommended by the National Kidney Foundation - [place] Society of Nephrology Task Force. Blood VENOUS BLOOD / Unknown Venipuncture / Unknown 11/14/2024 10:07 AM EDT 11/14/2024 10:07 AM EDT us Amarilis Nolan GENERAL MATCHER CHEMISTRY ORDERABLES Kell darion Result [facility] [address] [facility] , [place] [address] documented in this encounter Visit Diagnoses Diagnosis Flank pain- Primary Abdominal pain, unspecified site Blood loss Hemorrhage, unspecified Dehydration documented in this encounter Additional Health Concerns Assessment Noted Time A fall risk assessment has been complete d for the patient 06/14/2024 9:03 AM EST documented as of this encounter Care Teams Crown Blocker Relationship Specialty Start Date End Date Luis Villasenor MD [address] [place] [phone] PCP - OBGYN 01/09/10 Luis Villasenor MD [address] [place] [phone] PCP - General 01/09/10 documented as of this encounter
--- OUTSIDE RECORDS SUMMARY | 2024-12-16 10:16 | XMS_ITS | Continuity of Care Document ---
Author Organization [facility] Address [address] [place] [address] Care Team Providers Care Hat Blocker Name Role Phone ADDY GONZALES General Surgeon CARLOS A COATS Primary Care Provider VERONIKA RIVER Cold Working Inspector Assessment No assessment recorded. Plan of Treatment Reminders Order Date Submit Date Provider Last Modified By Organization Details Last Modified Time Details Appointments OV EST 15 2024 10:30A M Tomy King MD Not available Not available Not available Lab carcinoem bryonic Ag, quant, serum or plasma 2024 025 [id number] [facility], [address] [place], [address], 12/07/2024 08:57:02 CMP, serum or plasma 2024 025 ISABEL [facility], [address] [place], [address], 11/30/2024 13:45:48 CBC w/ diff 2024 025 [facility], [address] [place], [address], 12/07/2024 08:57:02 Referral None recorded. Procedures None recorded. Surgeries None recorded. Imaging None recorded. Medication Orders None recorded. Patient TargetsNo targets recorded. Patient InstructionsNo instructions recorded. Reason for Referral None Reported. Problems Name Problem SNOMED Code Status Onset Date Resolution Date Notes Provider Name and Address Organization Details Recorded Time Metastatic malignant neoplasm to liver 59802323 Active [address], [place] [id number] [place] [address] - [facility]NT [facility] [place] 3 14:27:25 Mass of colon 642011388 Active [address], [place] [address] , [place] - [facility] [place] 3 14:27:30 Anemia 117204050 Active [address], [address] - [facility] [place] 3 14:27:36 Nausea and vomiting 79143949 Active [address], [place] [address] , [facility] - [facility] & [place] 3 14:27:46 Unintentional weight loss 633153554 Active [address] [facility] & [place] 3 16:13:07 Night sweats 84950929 Active [address], [place] [address] , [place] - LPNT [facility] & [place] 3 16:13:12 Headache 43616231 Active 2024 [address] Far[address] [facility] & [place] 5 10:27:12 Problem Notes Documentation Provider Name and Address Organization Details Recorded Time Oncology Patient Navigator : ONN met with pt accompanied by daughter at [facility] with medical oncology. Pt is slurring her speech, seems forgetful, and nodding off during conversations. Pt daughter is a little concerned about pt but states overall she is doing well but has declined since last week. Pt denies any questions/concerns at this time. ONN encouraged pt to reach out may any needs/cooncerns arise. [facility] [place] 11/30/2024 15:38:04 Procedures Surgical History Date Name Laterality Status Provider Name and Address Organization Details Recorded Time 04/29/20 23 Venipuncture completed Hanna Snider PA-C [address] [facility], [place], [address], [facility] & [place] 04/27/2023 15:05:29 04/15/20 23 Venipuncture completed Stephanie Maravilla [facility] & [place] 04/15/2023 15:24:55 hysterectomy completed Laurel Samuels [facility] & [place] 03/11/2023 15:30:22 extraction of cataract completed Laurelesvin Samuels [facility] & [place] 03/11/2023 15:30:36 excision of colon completed Loree Tadeo [facility] & [place] 04/21/2023 11:32:07 Imaging Results None recorded. Procedure Notes None recorded. Medical Equipment None Reported. Allergies Allergen ID Allergen Name Allergen Category Reaction Reaction Severity Criticality Documentation Date Start Date Code Code System Note Provider Name and Address Organization Details Recorded Time 68798 tetracycl ine medicatio n hives Not available high 02/19/2023 14118 RxNorm Brandysa [facility] [place] 14:03:33 Medications Name Sig Start Date Stop [...] Updated DateTime 5 162.56 cm 33.8 kg/m2 26646.7 g 96.8 [degF] 99 % 99 % 65 /min 93/62 mm[Hg] Stephanie ELIAS [facility] & [place] 5 11:12:52 Social History Question Answer Notes LastModified by Organizat ion Details LastModified Time Tobacco Smoking Status [facility]oker [facility] [place] 02/19/2023 14:02:59 What Is Your Level Of Caffeine Consumption? None cy Information not available 02/19/2023 What Was The Date Of Your Most Recent Tobacco Screening? 11/23/2023 [email or web address] Information not available 11/23/2023 Has Tobacco Cessation Counseling Been Provided? No [email or web address] Information not available 07/13/2023 Sex: Unknown Functional Status Question Answer Note LastModified by Organizat ion Details LastModified Time Do you use any illicit or recreational drugs? No [email or web address] Information not available 02/19/2023 Do you or have you ever used any other forms of tobacco or nicotine? No [email or web address] Information not available 02/19/2023 What is your [...] pneumococcal polysaccharide PPV23 7 completed Stephanie Maravilla [facility] & [place] 12/21/2023 09:56:34 Past Encounters Encounter ID Performer Location Encounter Start Date Encounter Closed Date Diagnosis/Indication Diagnosis SNOMED-CT Code Diagnosis ICD10 Code Diagnosis Note [id number] Hanna Snider PA-C [facility] [place] [facility] [address] [facility] [address] [place] [address] 11/01/2024 13:00:10 11/01/2024 13:35:08 Antineoplastic chemotherapy regimen 614053095 Z51.11 Week 1 5FU Leucovorin Vectibix on [...] 25, 2024. Malignant tumor of ascending colon 403855929 C18.2 CT scan of the abdomen and [...] 8.2 hematocrit 29.0. MCV 67.9. Platelet count 036343. Normal cell differenti al. Low serum folate [...] study published in September 2022 in the [place] [facility] of combined Avastin therapy with [...] malignancy . Metastatic malignant neoplasm to liver 04177259 C78.7 CT scan of the abdomen and [...] any treatment for her malignancy . Nausea 493237136 R11.0 As needed Zofran and Phenergan prescribed [...] ons. Pain due t o neoplastic disease 3596448950 9102 G89.3 Abdominal pain has improved and pain is controlled with current pain medication s. Anemia 098500606 D64.9 Right-side d colon mass concerning for malignancy . Will assess for any signs of iron deficiency . Hemoglobin previously 8.0. Concern for blood loss from colon mass. Patient reports dark stools. Labs on August 10, 2024 with hemoglobin slightly low at 11.9. She is receiving infusional iron as needed. Adopted 473892582 Z62.89 8 Patient is adopted and discussed hereditary gene panel. Patient does have family history of her son having bladder cancer. [facility] hereditary panel sent Hypokalemia 69218892 E87 .6 Currently taking for potassium 20 mEq daily. Will follow up labs. 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 [...] reports depression has improved. Atopic conjunctivitis 23 3718949 H10.12 Conjunctiv itis due to Vectibix. This has improved. Iron defic iency anemia 55453700 D50.9 Receiving infusional iron as needed. Will continue to monitor. Insomnia 846578789 G47.0 0 Patient has had difficulty sleeping for most of her life. She has tried multiple medication s without relief. She is tried Mirtazapin e and lorazepam without improvemen t of insomnia. Discussed trying trazodone instead. Restless legs 22504787 G 25.81 Patient taking Requip for restless legs. Generalized rash 3846039 06 R21 Rash due to Vectibix. This has improved. Atrial fibrillation 4943 6004 I48.91 Patient has been diagnosed with congestive heart failure and atrial fibrillati on. She has been started on Coumadin. She is following with the Coumadin clinic at [facility]. Congestive heart failure 60920244 I50.9 Patient has been diagnosed with congestive heart failure. She has started lasix and is following with a cardiologi . Cachexia 799933655 R64 Patient has had decreased appetite and weight loss. She is drinking nutritiona l supplement s. Discussed appetite stimulant. Patient previously refused. She has started on Megace. She does not like the taste of Megace. Discussed Megace tablets instead of liquid but patient declines at this time. Will continue to monitor History of deep vein thrombosis 798941060 Z86.718 Patient developed right lower extremity pain [...] repeat venous duplex. Drug therapy finding 309 711227 Z79.01 She continues on Coumadin due to a fib. She is following with the Coumadin clinic at [facility]. Candidiasis of skin 4988 3006 B37.2 Patient has intermitte nt rash consistent with candidiasi s under her breasts folds. Will send prescripti on for nystain powder to use as needed. [id number] Hanna Snider PA-C [facility] [place] [facility] [address] [facility] [address] [place] [address] 11/30/2024 10:57:07 11/30/2024 11:54:59 Antineoplastic chemotherapy regimen 340501144 Z51.11 Week 1 5FU Leucovorin Vectibix on [...] 25, 2024. Malignant tumor of ascending colon 947476375 C18.2 CT scan of the abdomen and [...] 8.2 hematocrit 29.0. MCV 67.9. Platelet count 835671. Normal cell differenti al. Low serum folate [...] study published in September 2022 in the [place] [facility] of combined Avastin therapy with [...] malignancy . Metastatic malignant neoplasm to liver 58575526 C78.7 CT scan of the abdomen and [...] any treatment for her malignancy . Nausea 441603116 R11.0 As needed Zofran and Phenergan prescribed . Discussed trying scopolamin e patches but her insurance wouldn't cover. Discussed starting Ativan and Reglan is needed for nausea and vomiting. Pain due t o neoplastic disease 4812318405 9102 G89.3 Abdominal pain has improved and pain is controlled with current pain medication s. Anemia 974437533 D64.9 Right-side d colon mass concerning for malignancy . Will assess for any signs of iron deficiency . Hemoglobin previously 8.0. Concern for blood loss from colon mass. Patient reports dark stools. Labs on August 10, 2024 with hemoglobin slightly low at 11.9. She is receiving infusional iron as needed. Adopted 497784554 Z62.89 8 Patient is adopted and discussed hereditary gene panel. Patient does have family history of her son having bladder cancer. [facility] hereditary panel sent Hypokalemia 21589281 E87 .6 Currently taking for potassium 20 mEq daily. Will follow up labs. Mixed anxi ety and depressive disorder 913027911 F41.8 Patient returns on November 23, 2023. [...] reports depression has improved. Atopic conjunctivitis 23 9540201 H10.12 Conjunctiv itis due to Vectibix. This has improved. Iron defic iency anemia 22371060 D50.9 Receiving infusional iron as needed. Will continue to monitor. Insomnia 053562660 G47.0 0 Patient has had difficulty sleeping for most of her life. She has tried multiple medication s without relief. She is tried Mirtazapin e and lorazepam without improvemen t of insomnia. Discussed trying trazodone instead. Restless legs 94525338 G 25.81 Patient taking Requip for restless legs. Generalized rash 2889176 06 R21 Rash due to Vectibix. This has improved. Atrial fibrillation 7933 6004 I48.91 Patient has been diagnosed with congestive heart failure and atrial fibrillati on. She has been started on Coumadin. She is following with the Coumadin clinic at [facility]. Congestive heart failure 93047854 I50.9 Patient has been diagnosed with congestive heart failure. She has started lasix and is following with a cardiologi st. Cachexia 813026326 R64 Patient has had decreased appetite and weight loss. She is drinking nutritiona l supplement s. Discussed appetite stimulant. Patient previously refused. She has started on Megace. She does not like the taste of Megace. Discussed Megace tablets instead of liquid but patient declines at this time. Will continue to monitor History of deep vein thrombosis 051110472 Z86.718 Patient developed right lower extremity pain [...] repeat venous duplex. Drug therapy finding 309 917639 Z79.01 She continues on Coumadin due to a fib. She is following with the Coumadin clinic at [facility]. Candidiasis of skin 4988 3006 B37.2 Patient has intermitte nt rash consistent with candidiasi s under her breasts folds. She has nystain powder to use as needed. Dehydration 84584989 E86 .0 Patient returns on November 30, [...] Member ID Bell Member ID Guarantor Name 11/30/2024 1 MEDICARE[place] (MEDICARE[place] Vicky Roblero [id number] Vicky Roblero 11/30/2024 2 [employer] (MEDICARE SUPPLEMENT) Vicky Roblero [id number] Vicky Roblero Notes Date Note Type Note Provider Name and Address Organization Details Recorded Time 11/30/2024 text/html 79 yo F returns for evaluation of metastatic colon cancer. Patient recently seen on February 17, 2023 in the emergency room at [facility] with abdominal pain. Patient reported epigastric [...] 8.2 hematocrit 29.0. MCV 67.9. Platelet count 602859. Normal cell differential. Low serum folate of [...] with metastatic colorectal cancer. Discussed chemotherapy with [place] based regimen with 5FU Leucovorin if [...] is following with the Coumadin clinic at [facility]. She is scheduled for cardiac MRI. [...] study published in September 2022 in the [place] [facility] of combined Avastin therapy with [...] follow up labs today. Hanna Snider PA-C [id number], [place], [address], [facility] [place] & [place] 11/30/2024 13:22:42 OBGyn Episode No OBEpisode recorded.
[2024-12-16 14:22] LABS: PHA INR Fingerstick 1.7 (0.9-1.1)
== END 2024-12-16 14:40 ==
LOC: ACC 10:10
PROVIDERS: PCP Nurse Practitioner Family; Visit Provider Physician Assistant
DX: Z79.01 Long term (current) use of anticoagulants (principal)
CPT/HCPCS: 85610; 99211; G0463

== ENCOUNTER 2024-12-21 13:15 | Outpatient (CLI) | payer MEDICARE, SELFPAY ==
--- OUTSIDE RECORDS SUMMARY | 2024-10-26 11:00 | XMS_ITS | Encounter Summary ---
Author Organization [place] [address] Care Team Providers Care Cable Swager Name Role Phone Luis Villasenor MD Unavailable [phone] Luis Villasenor MD Primary Care Provider Reason for Visit * Reason Comments Labs Only Encounter Details Date Type Department Care Team (Late Contact Info) Description 10/26/2024 11:00 AM EDT Clinical Support [place] [address] [place] [id number] Freya Coon [facility] [place] [address] [place] [address] Flank pain Social History Tobacco Use Types [...] Author Blood Pressure < 140/90 Blood Pressure 91/63( 025 9:13 AM EDT) No Grace Redmond CMA Maintain [...] (NO STAIN) (10/26/2024 11:17 AM EDT) Pathologist [facility] Culture Multiple bacterial species isolated from urine consistent with urogenital commensal organisms. 10/27/2024 10:23 PM EDT Ininal Urine STRUCTURE OF URINARY TRACT PROPER / Unknown 10/26/2024 11:17 AM EDT 10/26/2024 11:17 AM EDT us Amarilis Nolan APRN MICROBIOLOGY - GENERAL OR DERABLES Final Result [facility] [address] [facility] , [place] [address] * (ABNORMAL) SEP URINALYSIS POC [...] ORDERABLES Fi nal Result TODD [place] [address] [place] [address] * (ABNORMAL) COMPREHENSIVE METABOLIC PANEL (10/26/2024 11:03 [...] 10/26/2024 4:28 PM EDT [facility] Albumin 3.5 3.2 - 4.6 gm/dL 10/26/2024 4:28 PM EDT [facility] Total Protein 7.4 6.4 - 8.3 gm/dL 10/26/2024 4:28 PM EDT [facility] Bili Total 0.7 0.2 - 1.3 mg/dL 10/26/2024 4:28 PM EDT [facility] ALT 11 <=41 U/L 10/26/2024 4:28 PM EDT [facility] AST 28 <=40 U/L 10/26/2024 4:28 PM EDT [facility] Alk Phos 259(H) 36 - 123 U/L 10/26/2024 4:28 PM EDT [facility] eGFR (CKD-EPIcr 2020) 43(L) >=60 mL/min/1.7 3 m2 10/26/2024 4:28 PM EDT [facility] Comment:Estimated GFR was ca lculated using the CKD-EPIcr (2020) equation refit without race. The equation is recommended by the [employer] - [place] [employer]ph[employer] Task Force. Blood VENOUS BLOOD / Unknown Venipuncture / Unknown 10/26/2024 11:03 AM EDT 10/26/2024 11:03 AM EDT us Amarilis Nolan CATEGORY SPECIALIST CHEMISTRY ORDERABLES Kell l Result [facility] [address] [facility] , [place] [address] documented in this encounter Visit Diagnoses Diagnosis Flank pain Abdominal pain, unspecified site documented in this encounter Additional Health Concerns Assessment Noted Time A fall risk assessment has been complete d for the patient 06/14/2024 9:03 AM EST documented as of this encounter Care Teams Cable Swager Relationship Specialty Start Date End Date Luis Villasenor MD [address] [place] [address] PCP - OBGYN 01/09/10 Luis Villasenor MD [address] [place], [place] [address] PCP - General 01/09/10 documented as of this encounter
--- OUTSIDE RECORDS SUMMARY | 2024-11-04 11:15 | XMS_ITS | Encounter Summary ---
Author Organization [place] [address] Care Team Providers Care Wad Blanking Press Adjuster Name Role Phone Luis Villasenor MD Unavailable [phone] Luis Villasenor MD Primary Care Provider Reason for Visit * Reason Comments Hospital Follow Up Diverticulitis Encounter Details Date Type Department Care Team (Latest Contact Info) Description 11/04/2024 11:15 AM EDT Office Visit SEP Sarah [address] [place] [phone] Amarilis Nolan, LAYOUT TECHNICIAN [address] [place] [address] Diverticulitis of large intestine without perforation or [...] this encounter Progress Notes * Amarilis Nolan, LAYOUT TECHNICIAN - 11/04/2024 11:15 AM EDT Assessment & [...] without bleeding Comments: inpatient hospital stay at [facility] November 03, symptoms resolved Peripheral edema [...] consistent with colon primary. Continues with chemotherapy [id number]. Managed by [facility] Oncology and Hematology 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) (Chronic) Overview: CT scan 01/2023 with multiple masses of liver and ascending colon thickening. 04/2023, R hemicolectomy and anastomosis, pathology of invasive moderately differentiated adenocarcinoma. Metastatic adenocarcinoma in 2/10 lymph nodes. Wedge resection of the liver with metastatic adenocarcinoma consistent with colon primary. Continues with chemotherapy [id number]. Managed by [facility] Oncology and Hematology Return in about 6 weeks (around 12/16/2024) for 6 week follow up, video visit ok. Subjective CHEMA Roblero is a 79 y.o. female Chief Complaint Patient presents with Hospital Follow Up Diverticulitis History of Present Illness The patient is a 79-year-old female here for a hospital follow-up. She was admitted to [facility] for diverticulitis. Denies ongoing symptoms since [...] The provider educated the patient (or legal signs sales representative) on the use of the ambient listening artificial intelligence tool, [employer]. They were informed that this AI tool [...] of such information, the patient (or legal signs sales representative), and each individual in attendance [...] documented as of this encounter Care Teams Wad Blanking Press Adjuster Relationship Specialty Start Date End Date Luis Villasenor MD [address] [place] [id number] PCP - OBGYN 01/09/10 Luis Villasenor MD [address] [place] [id number] PCP - General 01/09/10 documented as of this encounter
--- OUTSIDE RECORDS SUMMARY | 2024-11-14 09:00 | XMS_ITS | Encounter Summary ---
Author Organization [place] [address] Care Team Providers Care Brass Pourer Name Role Phone Luis Villasenor MD Unavailable [phone] Luis Villasenor MD Primary Care Provider Reason for Visit * Reason Comments Follow Up Needs labs, feeling drained, wants a b-12 Encounter Details Date Type Department Care Team (Late Contact Info) Description 11/14/2024 9:00 AM EDT Office Visit SEP Sarah [address] [place] [phone] Amarilis Nolan, CONDITIONING YARD SUPERVISOR [address] [place] [address] 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) (Primary [...] No 02/09/2020 8:59 AM EDT Nghia Redmond, SERVICES EXECUTIVE documented in this encounter Ordered Prescriptions Prescription [...] encounter Progress Notes * Ovidio Amarilis Terrie, CONDITIONING YARD SUPERVISOR - 11/14/2024 9:00 AM EDT Assessment & [...] 2024 per patient decision Managed by [facility] Orders: - CBC WITH [...] fibrillation (HCC) (Chronic) Overview: Dr. Youngblood, cardiology, [facility] Orders: - warfarin (COUMADIN) 5 mg Oral [...] Gran% 0.6 % Lymph Percent 9.9 % [place] Percent 8.3 % Eos Percent 3.5 % Baso Percent 0.6 % Neut # 7.7 (H) 1.6 - 6.1 x10(3)/mcL IMMGRAN# 0.1 0.0 - 0.1 x10(3)/mcL Lymph # 1.0 (L) 1.2 - 3.9 x10(3)/mcL [place] # 0.8 0.3 - 0.9 x10(3)/mcL Eos# [...] The provider educated the patient (or legal customer development representative) on the use of the ambient listening artificial intelligence tool, [employer]. They were informed that this AI tool [...] of such information, the patient (or legal customer development representative), and each individual in attendance with [...] 11/14/2024 3:44 PM EDT [facility] MCH 28.3 26.0 - 34.0 pg 11/14/2024 3:44 PM EDT [facility] MCHC 30.4(L) 30.7 - 35.5 g/dL 11/14/2024 3:44 PM EDT [facility] RDW 14.8 <=14.9 % 11/14/2024 3:44 PM EDT [facility] Platelet 375(H) 155 - 369 x10(3)/mcL 11/14/2024 3:44 PM EDT [facility] MPV 9.6 8.8 - 12.5 fL 11/14/2024 3:44 PM EDT [facility] Neut Percent 77.1 % 11/14/2024 3:44 PM EDT [facility] Comment:Neutrophils equals s egs plus bands Imm Gran% 0.6 % 11/14/2024 3:44 PM EDT [facility] Comment:Automated count of m etamyelocytes, myelocytes and promyelocytes. Lymph Percent 9.9 % 11/14/2024 3:44 PM EDT [facility] [place] Percent 8.3 % 11/14/2024 3:44 PM EDT [facility] Eos Percent 3.5 % 11/14/2024 3:44 PM EDT [facility] Baso Percent 0.6 % 11/14/2024 3:44 PM EDT [facility] Neut # 7.7(H) 1.6 - 6.1 x10(3)/mcL 11/14/2024 3:44 PM EDT [facility] Comment:Neutrophils equals s egs plus bands IMMGRAN# 0.1 0.0 - 0.1 x10(3)/mcL 11/14/2024 3:44 PM EDT [facility] Comment:Automated count of m etamyelocytes, myelocytes and promyelocytes. An absolute IG <0.1 is reported as 0.0. Lymph # 1.0(L) 1.2 - 3.9 x10(3)/mcL 11/14/2024 3:44 PM EDT [facility] [place] # 0.8 0.3 - 0.9 x10(3)/mcL 11/14/2024 3:44 PM EDT [facility] Eos# 0.4 0.0 - 0.5 x10(3)/mcL 11/14/2024 3:44 PM EDT [facility] Baso # 0.1 0.0 - 0.1 x10(3)/mcL 11/14/2024 3:44 PM EDT [facility] Blood VENOUS BLOOD / Unknown Venipuncture / Unknown 11/14/2024 10:07 AM EDT 11/14/2024 10:07 AM EDT us Amarilis Nolan CONDITIONING YARD SUPERVISOR HEMATOLOGY ORDERABLES Fin al Result [facility] [address] [facility] , [place] [address] * (ABNORMAL) COMPREHENSIVE METABOLIC PANEL (11/14/2024 10:07 [...] 11/14/2024 4:07 PM EDT [facility] Albumin 3.4 3.2 - 4.6 gm/dL 11/14/2024 4:07 PM EDT [facility], [facility] Total Protein 7.8 6.4 - 8.3 gm/dL 11/14/2024 4:07 PM EDT [facility], [facility] Bili Total 0.6 0.2 - 1.3 mg/dL 11/14/2024 4:07 PM EDT [facility], [facility] ALT <5 <=41 U/L 11/14/2024 4:07 PM EDT [facility], [facility] AST 23 <=40 U/L 11/14/2024 4:07 PM EDT [facility], [facility] Alk Phos 465(H) 36 - 123 U/L 11/14/2024 4:07 PM EDT [facility] eGFR (CKD-EPIcr 2020) 39(L) >=60 mL/min/1.7 3 m2 11/14/2024 4:07 PM EDT [facility] Comment:Estimated GFR was ca lculated using the CKD-EPIcr (2020) equation refit without race. The equation is recommended by the National Kidney Foundation - [place] Society of Nephrology Task Force. Blood VENOUS BLOOD / Unknown Venipuncture / Unknown 11/14/2024 10:07 AM EDT 11/14/2024 10:07 AM EDT Amarilis Nolan CONDITIONING YARD SUPERVISOR CHEMISTRY ORDERABLES Kell orlando Result [facility], [facility] [address] [facility] , [address] [place] [id number] * (ABNORMAL) FERRITIN (11/14/2024 10:07 AM EDT) Ferritin 728(H) 30 - 150 ng/mL 11/14/2024 4:07 PM EDT [facility], [facility] Comment:The lower threshold of 30 is [...] 11/14/2024 10:07 AM EDT Narrative [facility] [employer] - 11/14/2024 4:07 PM EDT Ingestion of rocio doses of biotin (>5 mg/day) taken within 8 hours of drawing blood sample can interfere with this immunoassay test. Amarilis Nolan APRN CHEMISTRY ORDERABLES Kell l Result Performing Organization Address City/[facility] Co de Phone Number [facility] [employer], [facility] [address] [facility] , [place] [address] * (ABNORMAL) IRON+TIBC (11/14/2024 10:07 AM EDT) Iron 26(L) 30 - 160 mcg/dL 11/14/2024 4:07 PM EDT [facility] Transferrin 153(L) 200 - 360 mg/dL 11/14/2024 4:07 PM EDT [facility] [employer] Transferrin Saturation 12(L) 20 - 50 % 11/14/2024 4:07 PM EDT [facility] [employer] TIBC 214(L) 250 - 400 mcg/dL 11/14/2024 4:07 PM EDT [facility] [employer] [facility] Blood VENOUS BLOOD / Unknown Venipuncture / Unknown 11/14/2024 10:07 AM EDT 11/14/2024 10:07 AM EDT Amarilis Nolan APRN CHEMISTRY ORDERABLES Kell l Result Performing Organization Address City/[facility]/ZIP Co de Phone Number [facility]REFERRED [facility], [facility] [address] [facility] , [place] [address] * VITAMIN B12/ FOLIC ACID (11/14/2024 10:07 AM EDT) Vitamin B12 801 232 - 1,245 pg/mL 11/14/2024 4:02 PM EDT [facility] Folate 9.89 >=4.80 ng/mL 11/14/2024 4:02 PM EDT [facility] Blood VENOUS BLOOD / Unknown Venipuncture / Unknown 11/14/2024 10:07 AM EDT 11/14/2024 10:07 AM EDT Narrative [facility] - 11/14/2024 4:02 PM EDT Ingestion of rocio doses of biotin (>5 mg/day) taken within 8 hours of drawing blood sample can interfere with this immunoassay test. us Amarilis Nolan APRN CHEMISTRY ORDERABLES Kell darion Result [facility] [address] [facility] , [address] [place] [id number] documented in this encounter Visit Diagnoses Diagnosis [...] documented as of this encounter Care Teams Brass Pourer Relationship Specialty Start Date End Date Luis Villasenor MD [address] [place] [id number] PCP - OBGYN 01/09/10 Luis Villasenor MD [address] [place] [id number] PCP - General 01/09/10 documented as of this encounter
--- OUTSIDE RECORDS SUMMARY | 2024-12-19 09:00 | XMS_ITS | Encounter Summary ---
Author Organization [place] [address] Care Team Providers Care Channel Process Supervisor Name Role Phone Luis Villasenor MD Unavailable [phone] Luis Villasenor MD Primary Care Provider Reason for Visit * Reason Comments Medicare Annual Wellness Encounter Details Date Type Department Care Team (Late Contact Info) Description 12/19/2024 9:00 AM EDT Office Visit [facility] [address] [place] [phone] Amarilis Nolan, STERILE SUPPLY TECHNICIAN [address] [place] [address] Paroxysmal atrial fibrillation (HCC) (Primary Dx); Malignant tumor of ascending colon (HCC); Hyponatremia; Type 2 diabetes mellitus without complication, unspecified whether intermediate insulin use (HCC); Skin breakdown Social History Tobacco Use Types Packs/Day Years [...] 8:59 AM EDT Nghia Redmond CMA * PHQ-9 Total Score Answer Date of Assessment Author 0 12/19/2024 9:07 AM EDT Pau Kelly RMA * Question Answer Date of Assessment Author Little interest or pleasure in doing things 0 12/19/2024 9:07 AM EDT Pau Gray RMA Feeling down, depressed, or hopeless 0 12/19/2024 9:07 AM EDT Pau Gray RMA PHQ-2 Total Score 0 12/19/2024 9:07 AM EDT Pau Gray RMA * PHQ-2 Total Score Answer Date of Assessment Author 0 12/19/2024 9:07 AM EDT Pau Kelly RMA documented as of this [...] g 2 12/19/2024 documented in this encounter Plan of Treatment Not on file documented as of this encounter Goals Goal Patient Goal Type Associated Problems Recent Progress Patient-Stated? Author Blood Pressure < 140/90 Blood Pressure 91/63( 025 9:13 AM EDT) No Grace Redmond CMA Maintain a healthy diet, exercise regularly and maintain an ideal body weight General Grace Avila CMA Stay Tobacco Free Lifestyle No Grace Redmond CMA documented as of this encounter Procedures Procedure Name Priority Date/Time Associated Diagnosis Comments IRIS DIABETIC RETINOPATHY EXAM Routine 12/19/2024 9:25 AM EDT Type 2 diabetes mellitus without complication, unspecified whether exterminator helper insulin use (HCC) documented in this encounter Results * IRIS DIABETIC RETINOPATHY EXAM (12/19/2024 9:25 AM EDT) Retinopathy Exam Severity NORMAL [facility] Right Diabetic Retinopathy None SE LAB Right Macular Edema None [facility] LAB Right Other Retina None [facility] LAB Right Eye Image Quality Gradable Image [facility] LAB Left Diabetic Retinopathy None SE LAB Left Macular Edema None SE LAB Left Other Retina None SE LAB Left Eye Image Quality Gradable Image [facility] 12/19/2024 9:25 AM EDT 12/19/2024 9:25 AM EDT Impressions [facility] - 12/19/2024 9:31 AM EDT Retinal Study Result for jaylon JEFFERS 79 y/o, F (: 1945, ) presented to [facility] on 12-19-2024 for a retinal imaging study of the left and right eyes. Based on the findings of the study, the following is recommended for DESHAWN JONES Normal Study: Return for follow up retina evaluation within 2 years Interpreting Provider's Comments: No comments provided Diagnoses Present: E119 - Type 2 diabetes mellitus without complications Right eye findings: Negative for Diabetic Retinopathy Negative for Macular Edema Left eye findings: Negative for Diabetic Retinopathy Negative for Macular Edema This result was electronically signed by John Hylton MD, , Taxonomy: [id number] on 12-19-2024 13:31 [facility]. NOTE: Any pathology noted on this diabetic retinal evaluation should be confirmed by an appropriate ophthalmic examination. Amarilis Nolan APRN OPHTHALMOLOGY SERVICES OR DERABLES Final Result [facility] [address] [place] [address] documented in this encounter Visit Diagnoses Diagnosis Paroxysmal atrial fibrillation (HCC)- Primary Atrial fibrillation Malignant tumor of ascending colon (HCC) Malignant neoplasm of ascending colon Hyponatremia Hyposmolality and/or hyponatremia Type 2 diabetes mellitus without complication, unspecified whether exterminator helper insulin use (HCC) Skin breakdown Other specified hypertrophic and atrophic condition of skin documented in this encounter Discontinued Medications Medication [...] may reflect changes made after this encounter. JUNTO 2 mg Oral Tablet Take 2 mg [...] documented as of this encounter Care Teams Channel Process Supervisor Relationship Specialty Start Date End Date Luis Villasenor MD [address] [place] [phone] PCP - OBGYN 01/09/10 Luis Villasenor MD [address] [place] [phone] PCP - General 01/09/10 documented as of this encounter
--- OUTSIDE RECORDS SUMMARY | 2024-12-21 13:18 | XMS_ITS | Encounter Summary ---
Author Organization [place] [address] Care Team Providers Care Leather Polisher Name Role Phone Luis Villasenor MD Unavailable [phone] Luis Villasenor MD Primary Care Provider Reason for Visit * Reason Onset Date Comments Orders 10/07/2024 VO for OT Encounter Details Date Type Department Care Team (Late Contact Info) Description 10/07/2024 Telephone [facility] [address] [place] [address] Luis Villasenor MD [address] [facility] [place] [address] Orders (VO for OT) Social History [...] a verbal order being requested: Yes If non-[facility], where should the order be faxed [...] documented as of this encounter Care Teams Leather Polisher Relationship Specialty Start Date End Date Luis Villasenor MD [address] [place] [phone] PCP - OBGYN 01/09/10 Luis Villasenor MD [address] [place] [phone] PCP - General 01/09/10 documented as of this encounter
--- OUTSIDE RECORDS SUMMARY | 2024-12-21 13:18 | XMS_ITS | Encounter Summary ---
Author Organization [place] [address] Care Team Providers Care Fruit Culler Name Role Phone Luis Villasenor MD Unavailable [phone] Luis Villasenor MD Primary Care Provider Encounter Details Date Type Department Care Team (Late Contact Info) Description 12/05/2024 Orders Only [facility] [address] [place], [phone] Pau Gray, A [address] [place] [phone] 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 due to chronic blood [...] documented as of this encounter Care Teams Fruit Culler Relationship Specialty Start Date End Date Luis Villasenor MD [address] [place] [phone] PCP - OBGYN 01/09/10 Luis Villasenor MD [address] [place] [phone] PCP - General 01/09/10 documented as of this encounter
--- OUTSIDE RECORDS SUMMARY | 2024-12-21 13:18 | XMS_ITS | Encounter Summary ---
Author Organization [place] [address] Care Team Providers Care Informatica Name Role Phone Luis Villasenor MD Unavailable [phone] Luis Villasenor MD Primary Care Provider Encounter Details Date Type Department Care Team (Latest Contact Info) Description 10/28/2024 Results Follow-Up [facility] [address] [place] [phone] Amarilis Nolan, SENIOR SOFTWARE ENGINEER [address] [place] [address] COMPREHENSIVE METABOLIC PANEL, URINE CULTURE (NO [...] Blood Pressure 91/63( 025 9:13 AM EDT) Grace Avila CMA Maintain a [...] documented as of this encounter Care Teams Informatica Relationship Specialty Start Date End Date Luis Villasenor MD [address] [place] [phone] PCP - OBGYN 01/09/10 Luis Villasenor MD [address] [place] [phone] PCP - General 01/09/10 documented as of this encounter
--- OUTSIDE RECORDS SUMMARY | 2024-12-21 13:18 | XMS_ITS | Encounter Summary ---
Author Organization [place] [address] Care Team Providers Care Flour Mixer Helper Name Role Phone Luis Villasenor MD Unavailable [phone] Luis Villasenor MD Primary Care Provider Reason for Visit * Reason Onset Date Comments Orders 09/22/2024 personal touch [facility] care Encounter Details Date Type Department Care Team (Late st Contact Info) Description 09/22/[address] [facility] [place] [address] Luis Villasenor MD [place] [facility] [phone] Orders (personal touch home care) Social [...] lois ) What Orders are being requested: Halfway Reason Orders are Needed (Diagnosis): check over vital - head to toe assessment and medication education Is a verbal order being requested: Yes If non-[facility], where should the order be faxed (include [...] documented as of this encounter Care Teams Flour Mixer Helper Relationship Specialty Start Date End Date Luis Villasenor MD [address] [place] [phone] PCP - OBGYN 01/09/10 Luis Villasenor MD [address] [place] [phone] PCP - General 01/09/10 documented as of this encounter
--- OUTSIDE RECORDS SUMMARY | 2024-12-21 13:18 | XMS_ITS | Encounter Summary ---
Author Organization [place] [address] Care Team Providers Care Chemical Technician Name Role Phone Luis Villasenor MD Unavailable [phone] Luis Villasenor MD Primary Care Provider Reason for Visit * Reason Onset Date Comments Other 11/01/2024 Encounter Details Date Type Department Care Team (Late Contact Info) Description 11/01/2024 Telephone [facility] [address] [place] [address] Luis Villasenor MD [...] documented as of this encounter Care Teams Chemical Technician Relationship Specialty Start Date End Date Luis Villasenor MD [address] [place] [phone] PCP - OBGYN 01/09/10 Luis Villasenor MD [address] [place] [phone] PCP - General 01/09/10 documented as of this encounter
--- OUTSIDE RECORDS SUMMARY | 2024-12-21 13:18 | XMS_ITS | Encounter Summary ---
Author Organization [place] [address] Care Team Providers Care Bulk Sealer Operator Name Role Phone Luis Villasenor MD Unavailable [phone] Luis Villasenor MD Primary Care Provider [phone] Reason for Visit * Reason Onset Date Comments 911/Red Flag 09/19/2024 possible blood c lot Encounter Details Date Type Department Care Team (Late st Contact Info) Description 09/19/2024 Nurse Triage [facility] [place] [phone] Luis Villasenor MD [address] [facility] [place] [phone] Peripheral edema (Primary Dx) Social History [...] Pressure 91/63( 025 9:13 AM EDT) No Nyla, Grace, BAR HOST Maintain a healthy diet, exercise regularly and [...] documented as of this encounter Care Teams Bulk Sealer Operator Relationship Specialty Start Date End Date Luis Villasenor MD [address] [facility] [place] [address] PCP - OBGYN 01/09/10 Luis Villasenor MD [address] [facility] [place] [phone] PCP - General 01/09/10 documented as of this encounter
--- OUTSIDE RECORDS SUMMARY | 2024-12-21 13:18 | XMS_ITS | Encounter Summary ---
Author Organization [place] [address] Care Team Providers Care Bistro Server Name Role Phone Luis Villasenor MD Unavailable [phone] Luis Villasenor MD Primary Care Provider Encounter Details Date Type Department Care Team (Late Contact Info) Description 10/26/2024 Orders Only [facility] [address] [place] [phone] Amarilis Nolan, AIRBORNE OPERATIONS SUPERINTENDENT [address] [place] [address] Flank pain (Primary Dx) Social History [...] EDT 10/26/2024 11:17 AM EDT Amarilis Nolan AIRBORNE OPERATIONS SUPERINTENDENT MICROBIOLOGY - GENERAL OR DERABLES Final Result [facility] [address] [facility] , [place] [address] * (ABNORMAL) COMPREHENSIVE METABOLIC PANEL (10/26/2024 11:03 [...] 10/26/2024 4:28 PM EDT [facility] AST 28 <=40 U/L 10/26/2024 4:28 PM EDT [facility] Alk Phos 259(H) 36 - 123 U/L 10/26/2024 4:28 PM EDT [facility] eGFR (CKD-EPIcr 2020) 43(L) >=60 mL/min/1.7 3 m2 10/26/2024 4:28 PM EDT [facility] Comment:Estimated GFR was ca lculated using the CKD-EPIcr (2020) equation refit without race. The equation is recommended by the National Kidney Foundation - [place] [employer] of Nephrology Task Force. Blood VENOUS BLOOD / Unknown Venipuncture / Unknown 10/26/2024 11:03 AM EDT 10/26/2024 11:03 AM EDT Amarilis Nolan AIRBORNE OPERATIONS SUPERINTENDENT CHEMISTRY ORDERABLES Kell orlando Result [facility] [address] [facility] , [place] [address] documented in this encounter Visit Diagnoses Diagnosis Flank pain- Primary Abdominal pain, unspecified site documented in this encounter Additional Health Concerns Assessment Noted Time A fall risk assessment has been complete d for the patient 06/14/2024 9:03 AM EST documented as of this encounter Care Teams Bistro Server Relationship Specialty Start Date End Date Luis Villasenor MD [address] [place] [phone] PCP - OBGYN 01/09/10 Luis Villasenor MD [address] [place] [phone] PCP - General 01/09/10 documented as of this encounter
--- OUTSIDE RECORDS SUMMARY | 2024-12-21 13:18 | XMS_ITS | Continuity of Care Document ---
Author Organization [facility] Address [address] [place] [address] Care Team Providers Care Manager Crisis Name Role Phone ADDY GONZALES General Surgeon CARLOS A COATS Primary Care Provider [phone] VERONIKA RIVER Blister Packing Machine Tender Assessment No assessment recorded. Plan of Treatment Reminders Order Date Submit Date Provider Last Modified By Organization Details Last Modified Time Details Appointments OV EST 30 2024 11:30A M Hanna Snider PA-C Not available Not available Not available OV EST 15 2024 10:30A M Tomy King MD Not available Not available Not available Lab carcinoem bryonic Ag, quant, serum or plasma 2024 025 [email or web address] [facility], [address] [place], [address], 11/08/2024 10:04:49 CMP, serum or plasma 2024 025 [facility], [address] [facility], [place], [address], 11/01/2024 15:54:32 CBC w/ diff 2024 025 [email or web address] [facility], [address] [place], [address], 11/08/2024 10:04:49 Referral None recorded. Procedures None recorded. Surgeries None recorded. Imaging None recorded. Medication Orders nystatin 100,000 unit/gram topical powder 2024 025 [facility] [id number], [id number] [place], [address], 11/01/2024 13:56:59 Patient TargetsNo targets recorded. Patient InstructionsNo instructions recorded. Reason for Referral None Reported. Results Created Date Observation Date Name Description Value Unit Range Abnormal Flag Note LastModifiedBy Organization Detail LastModifiedTime 11/02/1911/01/2024 CBC AUTO W DIFF WBC 6.7 K/uL 4.0-10 .5 Not Available [facility] ([facility]) [address], [place], [address], 11/01/2024 15:32:39 11/02/19 25 11/01/2024 CBC AUTO W DIFF RBC 3.2 M/mm3 4.2-6. 4 low Not Available [facility] ([facility]) [address] [facility], [place], [address], 11/01/2024 15:32:39 11/02/19 25 11/01/2024 CBC AUTO W DIFF HGB 9.0 gm/dL 12.5-1 6.0 low Not Available [facility] ([facility]) [address], [place], [address], 11/01/2024 15:32:39 11/02/19 25 11/01/2024 CBC AUTO W DIFF HCT 28.9 % 37.0-4 7.0 low Not Available [facility] ([facility]) [address], [place], [address], 11/01/2024 15:32:39 11/02/19 25 11/01/2024 CBC AUTO W DIFF MCV 90.9 fL 78-100 Not Available [facility] ([facility]) [address], [place], [address], 11/01/2024 15:32:39 11/02/19 25 11/01/2024 CBC AUTO W DIFF MCH 28.3 pg 27-31 Not Available [facility] ([facility]) [address], [place], [address], 11/01/2024 15:32:39 11/02/19 25 11/01/2024 CBC AUTO W DIFF MCHC 31.1 g/dL 32-36 low Not Available [facility] ([facility]) [address], [place], [address], 11/01/2024 15:32:39 11/02/19 25 11/01/2024 CBC AUTO W DIFF RDW 14.5 % 11.5-1 4.0 high Not Available [facility] ([facility]) [address], [place], [address], 11/01/2024 15:32:39 11/02/19 25 11/01/2024 CBC AUTO W DIFF platelet count 257 K/uL 150-45 0 Not Available [facility] ([facility]) [address], [place], [address], 11/01/2024 15:32:39 11/02/19 25 11/01/2024 CBC AUTO W DIFF MPV 9.6 fL 6-9.5 high Not Available [facility] ([facility]) [address], [place], [address], 11/01/2024 15:32:39 11/02/19 25 11/01/2024 CBC AUTO W DIFF neutrophil% 75.3 % 43-65 high Not Available [facility] ([facility]) [address] [place], [address], 11/01/2024 15:32:39 11/02/19 25 11/01/2024 CBC AUTO W DIFF lymphocyte% 13.9 % 20.5-4 5.5 low Not Available [facility] ([facility]) [address] , [place], [address], 11/01/2024 15:32:39 11/02/19 25 11/01/2024 CBC AUTO W DIFF monocyte% 7.5 % 5.5-11 .7 Not Available [facility] ([facility]) [address] [place], [address], 11/01/2024 15:32:39 11/02/19 25 11/01/2024 CBC AUTO W DIFF eosinophil% 2.2 % 0.9-2. 9 Not Available [facility] ([facility]) [address] [place], [address], 11/01/2024 15:32:39 11/02/19 25 11/01/2024 CBC AUTO W DIFF basophil% 0.4 % 0.2-1. 0 Not Available [facility] ([facility]) [address] [place], [address], 11/01/2024 15:32:39 11/02/19 25 11/01/2024 CBC AUTO W DIFF immature granulocytes % 0.7 % 0.0-0. 8 Not Available [facility] ([facility]) [address] [place], [address], 11/01/2024 15:32:39 11/02/19 25 11/01/2024 CBC AUTO W DIFF nucleated red blood cells % 0.0 % Not Available [facility] ([facility]) [address] [place], [address], 11/01/2024 15:32:39 11/02/19 25 11/01/2024 CBC AUTO W DIFF neutrophil# 5.0 K/uL 2.2-4. 8 high Not Available [facility] ([facility]) [address] [place], [address], 11/01/2024 15:32:39 11/02/19 25 11/01/2024 CBC AUTO W DIFF lymphocyte# 0.9 cell/ mcL 1.3-2. 9 low Not Available [facility] ([facility]) [address] , [place], [address], 11/01/2024 15:32:39 11/02/19 25 11/01/2024 CBC AUTO W DIFF monocyte# 0.5 cell/ mcL 0.3-0. 8 Not Available [facility] ([facility]) [address], [place], [address], 11/01/2024 15:32:39 11/02/19 25 11/01/2024 CBC AUTO W DIFF eosinophil# 0.2 cell/ mcL 0-0.2 Not Available [facility] ([facility]) [address], [place], [address], 11/01/2024 15:32:39 11/02/19 25 11/01/2024 CBC AUTO W DIFF basophil# 0.0 cell/ mcL 0.0-1. 0 Not Available [facility] ([facility]) [address], [place], [address], 11/01/2024 15:32:39 11/02/19 25 11/01/2024 CBC AUTO W DIFF immature gramulocytes # 0.05 K/uL Not Available [facility] ([facility]) [address], [place], [address], 11/01/2024 15:32:39 11/02/19 25 11/01/2024 CBC AUTO W DIFF nucleated red blood cells # 0.00 K/uL Not Available [facility] ([facility]) [address], [place], [address], 11/01/2024 15:32:39 11/02/19 25 11/01/2024 CBC AUTO W DIFF manual differential NO Not Available [facility] ([facility]) [address], [place], [address], 11/01/2024 15:32:39 11/02/19 25 11/01/2024 COMP METAB OLIC PANEL sodium 139 mmol/ L 136-14 5 Not Available [facility] ([facility]) [address] , [place], [address], 11/01/2024 15:54:32 11/02/19 25 11/01/2024 COMP METAB OLIC PANEL potassium 3.6 mmol/ L 3.6-5. 0 Not Available [facility] ([facility]) [address] , [place], [address], 11/01/2024 15:54:32 11/02/19 25 11/01/2024 COMP METAB OLIC PANEL chloride 103 mmol/ L 98-107 Not Available [facility] ([facility]) [address], [place], [address], 11/01/2024 15:54:32 11/02/19 25 11/01/2024 COMP METAB OLIC PANEL carbon dioxide 27.8 mmol/ L 21.0-3 2.0 Not Available [facility] ([facility]) [address] , [place], [address], 11/01/2024 15:54:32 11/02/19 25 11/01/2024 COMP METAB OLIC PANEL anion gap 11.8 Not Available [facility] ([facility]) [address] [place], [address], 11/01/2024 15:54:32 11/02/19 25 11/01/2024 COMP METAB OLIC PANEL glucose 112 mg/dL 70-120 Not Available [facility] ([facility]) [address] [place], [address], 11/01/2024 15:54:32 11/02/19 25 11/01/2024 COMP METAB OLIC PANEL BUN 9 mg/dL 7-18 Not Available [facility] ([facility]) [address] [place], [address], 11/01/2024 15:54:32 11/02/19 25 11/01/2024 COMP METAB OLIC PANEL creatinine 1.1 mg/dL 0.6-1. 3 Not Available [facility] ([facility]) [address], [place], [address], 11/01/2024 15:54:32 11/02/19 25 11/01/2024 COMP METAB [...] albrecht ing kiney funct ion. Not Available [facility] ([facility]) [address], [place], [address], 11/01/2024 15:54:32 11/02/19 25 11/01/2024 COMP METAB OLIC PANEL osmolality (calculated) 289 mOsm/ kg 275-30 1 OSMOL ALITY IS A CALCU LATIO N UTILI ZING THE SERUM /PLAS MA SODIU M, GLUCO SE AND UREA NITRO GEN (BUN) LEVEL S. FOR THE MOST ACCUR ATE RESUL T A MEASU RED SERUM OSMOL ALITY IS SUGGE STED. Not Available [facility] ([facility]) [address], [place], [address], 11/01/2024 15:54:32 11/02/19 25 11/01/2024 COMP METAB OLIC PANEL total protein 6.5 g/dL 6.4-8. 2 Not Available [facility] ([facility]) [address], [place], [address], 11/01/2024 15:54:32 11/02/19 25 11/01/2024 COMP METAB OLIC PANEL albumin 2.2 g/dL 3.4-5. 0 low Not Available [facility] ([facility]) [address] , [place], [address], 11/01/2024 15:54:32 11/02/19 25 11/01/2024 COMP METAB OLIC PANEL globulin 4.3 Not Available [facility] ([facility]) [address] , [place], [address], 11/01/2024 15:54:32 11/02/19 25 11/01/2024 COMP METAB OLIC PANEL alb/glob ratio 0.5 0.7-2 low Not Available [facility] ([facility]) [address] , [place], [address], 11/01/2024 15:54:32 11/02/19 25 11/01/2024 COMP METAB OLIC PANEL calcium 8.5 mg/dL 8.5-10 .5 Not Available [facility] ([facility]) [address] , [place], [address], 11/01/2024 15:54:32 11/02/19 25 11/01/2024 COMP METAB OLIC PANEL bilirubin total 0.40 mg/dL 0.10-1 .00 Not Available [facility] ([facility]) [address] [place], [address], 11/01/2024 15:54:32 11/02/19 25 11/01/2024 COMP METAB OLIC PANEL AST (SGOT) 33 U/L 0-37 Not Available [facility] ([facility]) [address] [place], [address], 11/01/2024 15:54:32 11/02/19 25 11/01/2024 COMP METAB OLIC PANEL ALT (SGPT) 11 U/L 0-65 Not Available [facility] ([facility]) [address] [place], [address], 11/01/2024 15:54:32 11/02/19 25 11/01/2024 COMP METAB OLIC PANEL alk phosphatase 327 U/L 46-116 high Not Available [facility] ([facility]) [address], [place], [address], 11/01/2024 15:54:32 11/02/19 25 11/03/2024 CEA cea 86.4 NG/mL 0.0-4. 7 high Nonsm okers <3.9 Smoke rs <5.6 . Lois Diagn ostic s Elect lois milum inesc ence Immun oassa y (ECLI A) . Value s obtai lexi with diffe rent assay metho ds or kits canno t be used inter albrecht eabl . Resul ts canno t be inter prete d as absol te-moak evide nce of the prese nce or absen ce of [facility] . Perfo rmed at: [facility] [address] [place] [address] 1269 Lab Direc tor: Tate staton PhD, Phone : [phone] Not Available [facility] ([facility]) [address], [place], [address], 11/03/2024 13:11:48 Result Notes None recorded. Problems Name Problem SNOMED Code Status Onset Date Resolution Date Notes Provider Name and Address Organization Details Recorded Time Metastatic malignant neoplasm to liver 40379552 Active 2022 Ghassan Lieberman PA-C [address], [place], [address] , [place] [facility] [place] 3 14:27:25 Mass of colon 769486351 Active 2022 Ghassan Lieberman PA-C [address], [place], [address] , [place] - [facility] [place] & [place] 3 14:27:30 Anemia 165910207 Active 2022 Ghassan Lieberman PA-C [address], [place], [address] , [place] & [place] 3 14:27:36 Nausea and vomiting 01254845 Active 2022 Ghassan Lieberman PA-C [address], [place], [address] , [place] - [facility] [place] & [place] 3 14:27:46 Unintentional weight loss 719912122 Active 2022 Ghassan Lieberman PA-C [address], [place], [address] , [place] - [place] & [place] 3 16:13:07 Night sweats 95636677 Active 2022 Ghassan Lieberman PA-C [address], [place], [address] , [place] & [place] 3 16:13:12 Headache 04346648 Active 2024 Christine yusuf, [place] - [place] & [place] 5 10:27:12 Problem Notes Documentation Provider Name and Address Organization Details Recorded Time Oncology Patient Navigator : SHABBIR met with pt at [facility] with medical oncology. Pt states she is doing well at this time. Hospice consult was briefly discussed and pt declined at this time. SHABBIR encouraged pt to reach out may any needs/concerns arise. Christine yusuf, [place] & [place] 11/01/2024 13:52:48 Procedures Surgical History Date Name Laterality Status Provider Name and Address Organization Details Recorded Time 04/29/20 23 Venipuncture completed Hanna Snider PA-C [address], [place], [address], [place] [place] 04/27/2023 15:05:29 04/15/20 23 Venipuncture completed Stephanie Maravilla [place] - [facility] [place] 04/15/2023 15:24:55 hysterectomy completed Laurel Samuels [place] - [facility] [place] & [place] 03/11/2023 15:30:22 extraction of cataract completed Laurel Samuels [facility] & [place] 03/11/2023 15:30:36 excision of colon completed Loree Tadeo [facility] & [place] 04/21/2023 11:32:07 Imaging Results None recorded. Procedure Notes None recorded. Medical Equipment None Reported. Allergies Allergen ID Allergen Name Allergen Category Reaction Reaction Severity Criticality Documentation Date Start Date Code Code System Note Provider Name and Address Organization Details Recorded Time 67765 tetracycl ine medicatio n hives Not available high 02/19/2023 38649 RxNorm Brandysa Raheem yusuf [facility] & [place] 14:03:33 Medications Name Sig Start Date Stop [...] hydrocodone 10 mg-acetamin ophen 325 mg tablet 1-2 tabs po q4-6 hrs prn pain 2024 active Not Available Not Available Not Avai lable aspirin 81 mg tablet,anastacio yed release Take [...] t Available cefdinir 300 mg capsule TAKE ONE CAPSULE BY MOUTH EVERY TWELVE HOURS -- FINISH ALL MEDICINE -- active Not Available Not Available No t Available amoxicillin 875 mg-potassiu m clavulanate 125 [...] Last Updated DateTime 162.56 cm 33.5 kg/m2 14798.5 1 g 97.6 [degF] 98 % 98 % 75 /min 185/79 mm[Hg] Laurel Samuels [facility] [place] 13:16:39 Social History Question Answer Notes LastModified by Good Thing Details LastModified Time Tobacco Smoking Status Never Smoker Brandy Winstonwell [facility], [facility] & [place] 02/19/2023 14:02:59 What Is Your Level Of Caffeine Consumption? None [email or web address] Information not available 02/19/2023 What Was The Date Of Your Most Recent Tobacco Screening? 11/23/2023 Information not available 11/23/2023 Has Tobacco Cessation Counseling Been Provided? No Information not available 07/13/2023 Sex: Unknown Functional Status Question Answer Note LastModified by Good Thing Details LastModified Time Do you use any illicit or recreational drugs? No Information not available 02/19/2023 Do you or have you ever used any other forms of tobacco or nicotine? No [email or web address] Information not available 02/19/2023 What is your level of alcohol consumption? None [email or web address] Information not available 02/19/2023 Mental Status None recorded. Family History Nothing Reported. Medical History No medical history recorded. Gynecological HistoryNo gynecological history recorded. Obstetrics History GPAL:G 0 P 0 0 0 0 Immunizations Vaccine Type Date Status Note Provider Nam e and Address Organization Details Recorded Time pneumococcal polysaccharide PPV23 7 completed Stephanie Maravilla [facility], [place] - [facility] [place] 12/21/2023 09:56:34 Past Encounters Encounter ID Performer Location Encounter Start Date Encounter Closed Date Diagnosis/Indication Diagnosis SNOMED-CT Code Diagnosis ICD10 Code Diagnosis Note [id number] Hanna Snider PA-C [facility] [address] [place] [address] 11/01/2024 13:00:10 11/01/2024 13:35:08 Antineoplastic chemotherapy regimen 033271728 Z51.11 Week 1 5FU Leucovorin Vectibix on [...] 25, 2024. Malignant tumor of ascending colon 982615814 C18.2 CT scan of the abdomen and [...] 8.2 hematocrit 29.0. MCV 67.9. Platelet count 256248. Normal cell differenti al. Low serum folate [...] study published in September 2022 in the [employer] [facility] of combined Avastin therapy with [...] malignancy . Metastatic malignant neoplasm to liver 91114420 C78.7 CT scan of the abdomen and [...] any treatment for her malignancy . Nausea 571115349 R11.0 As needed Zofran and Phenergan prescribed [...] ons. Pain due t o neoplastic disease 0735172304 9102 G89.3 Abdominal pain has improved and pain is controlled with current pain medication s. Anemia 758288175 D64.9 Right-side d colon mass concerning for malignancy . Will assess for any signs of iron deficiency . Hemoglobin previously 8.0. Concern for blood loss from colon mass. Patient reports dark stools. Labs on August 10, 2024 with hemoglobin slightly low at 11.9. She is receiving infusional iron as needed. Adopted 007045400 Z62.89 8 Patient is adopted and discussed hereditary gene panel. Patient does have family history of her son having bladder cancer. [facility] hereditary panel sent Hypokalemia 65743031 E87 .6 Currently taking for potassium 20 mEq daily. Will follow up labs. 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 [...] reports depression has improved. Atopic conjunctivitis 23 7885221 H10.12 Conjunctiv itis due to Vectibix. This has improved. Iron defic iency anemia 22344128 D50.9 Receiving infusional iron as needed. Will continue to monitor. Insomnia 672607249 G47.0 0 Patient has had difficulty sleeping for most of her life. She has tried multiple medication s without relief. She is tried Mirtazapin e and lorazepam without improvemen t of insomnia. Discussed trying trazodone instead. Restless legs 33102064 G 25.81 Patient taking Requip for restless legs. Generalized rash 5991652 06 R21 Rash due to Vectibix. This has improved. Atrial fibrillation 4943 6004 I48.91 Patient has been diagnosed with congestive heart failure and atrial fibrillati on. She has been started on Coumadin. She is following with the Coumadin clinic at [facility]. Congestive heart failure 94788400 I50.9 Patient has been diagnosed with congestive heart failure. She has started lasix and is following with a cardiologi . Cachexia 213937404 R64 Patient has had decreased appetite and weight loss. She is drinking nutritiona l supplement s. Discussed appetite stimulant. Patient previously refused. She has started on Megace. She does not like the taste of Megace. Discussed Megace tablets instead of liquid but patient declines at this time. Will continue to monitor History of deep vein thrombosis 459038554 Z86.718 Patient developed right lower extremity pain [...] repeat venous duplex. Drug therapy finding 309 605970 Z79.01 She continues on Coumadin due to a fib. She is following with the Coumadin clinic at [facility]. Candidiasis of skin 4988 3006 [...] Name 11/01/2024 1 [place] Vicky Roblero [id number] Vicky Roblero 11/01/2024 2 [employer] (MEDICARE SUPPLEMENT) Vicky Roblero [id number] Vicky Roblero Notes Date Note Type Note Provider Name and Address Organization Details Recorded Time 11/01/2024 text/html 79 yo F returns for evaluation of metastatic colon cancer. Patient recently seen on February 17, 2023 in the emergency room at with abdominal pain. Patient reported epigastric pain [...] 8.2 hematocrit 29.0. MCV 67.9. Platelet count 781286. Normal cell differential. Low serum folate of [...] with metastatic colorectal cancer. Discussed chemotherapy with [place] based regimen with 5FU Leucovorin if [...] study published in September 2022 in the [employer] [facility] of combined Avastin therapy with [...] to have if needed. Hanna Snider PA-C [address], [place], [address], [place] [facility] 11/01/2024 13:57:44 OBGyn Episode No OBEpisode recorded.
--- OUTSIDE RECORDS SUMMARY | 2024-12-21 13:18 | XMS_ITS | Encounter Summary ---
Author Organization [place] [address] Care Team Providers Care Director Talent Management Name Role Phone Luis Villasenor MD Unavailable [phone] Luis Villasenor MD Primary Care Provider Reason for Visit * Reason Onset Date Comments Orders 09/30/2024 SN,verbal Encounter Details Date Type Department Care Team (Late Contact Info) Description 09/30/[address] [facility] [place] [address] Luis Villasenor MD [place] [facility] [place] [address] Orders (SN,verbal ) Social History Tobacco [...] a verbal order being requested: Yes If non-[facility], where should the order be faxed [...] Pressure 91/63( 025 9:13 AM EDT) No Graec Redmond CMA Maintain a healthy diet, exercise [...] as of this encounter Care Teams Director Talent Management Relationship Specialty Start Date End Date Luis Villasenor MD [address] [place], [place] [address] PCP - OBGYN 01/09/10 Luis Villasenor MD [address] [place], [place] [phone] PCP - General 01/09/10 documented as of this encounter
--- OUTSIDE RECORDS SUMMARY | 2024-12-21 13:18 | XMS_ITS | Encounter Summary ---
Author Organization [place] [address] Care Team Providers Care Saxophone Assembler Name Role Phone Luis Villasenor MD Unavailable [phone] Luis Villasenor MD Primary Care Provider Reason for Visit * Reason Onset Date Comments Other 10/11/2024 FYI- pt is wanti palliative care, home health asking if pcp would like to do this. Encounter Details Date Type Department Care Team (Late st Contact Info) Description 10/11/2024 Telephone SEP Sarah [address] [place] [address] Luis Villasenor MD [...] relationship to patient if not the patient): [facility] home health- Yarelis What is needed [...] documented as of this encounter Care Teams Saxophone Assembler Relationship Specialty Start Date End Date Luis Villasenor MD [address] [place] [address] PCP - OBGYN 01/09/10 Luis Villasenor MD [address] [place] [address] PCP - General 01/09/10 documented as of this encounter
--- OUTSIDE RECORDS SUMMARY | 2024-12-21 13:18 | XMS_ITS | Encounter Summary ---
Author Organization [place] [address] Care Team Providers Care Matcher [employer] Name Role Phone Luis Villasenor MD Unavailable [phone] Luis Villasenor MD Primary Care Provider [phone] Reason for Visit * Reason Onset Date Comments Orders 12/14/2024 SN Encounter Details Date Type Department Care Team (Late Contact Info) Description 12/14/2024 Telephone SEP Sarah [facility] [place] [address] Luis Villasenor MD [address] [facility] [place] [address] Orders (SN) Social History Tobacco Use [...] name: Willem) What Orders are being requested: Intermediate Reason Orders are Needed (Diagnosis): Malignant neoplasm [...] documented as of this encounter Care Teams Matcher [employer] Relationship Specialty Start Date End Date Luis Villasenor MD [address] [facility] [place] [address] PCP - OBGYN 01/09/10 Luis Villasenor MD [address] [facility] [place] [phone] PCP - General 01/09/10 documented as of this encounter
--- OUTSIDE RECORDS SUMMARY | 2024-12-21 13:18 | XMS_ITS | Encounter Summary ---
Author Organization [place] [address] Care Team Providers Care Benefits Analyst Name Role Phone Luis Villasenor MD Unavailable [phone] Luis Villasenor MD Primary Care Provider Encounter Details Date Type Department Care Team (Late Contact Info) Description 11/30/2024 Orders Only SEP Sarah [address] [place], [id number] Pau Gray, A [address] [place] [address] 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 due to chronic blood [...] documented as of this encounter Care Teams Benefits Analyst Relationship Specialty Start Date End Date Luis Villasenor MD [address] [place] [phone] PCP - OBGYN 01/09/10 Luis Villasenor MD [address] [place] [id number] PCP - General 01/09/10 documented as of this encounter
--- OUTSIDE RECORDS SUMMARY | 2024-12-21 13:18 | XMS_ITS | Encounter Summary ---
Author Organization [place] [address] Care Team Providers Care Acid Condenser Name Role Phone Luis Villasenor MD Unavailable [phone] Luis Villasenor MD Primary Care Provider [phone] Reason for Visit * Reason Onset Date Comments Follow Up 12/01/2024 Need diagnosis c ode on infusion order - ok to handwrite on order - please fax to [phone] Encounter Details Date Type Department Care Team (Late st Contact Info) Description 12/01/2024 Telephone SEP Sarah [facility] [place] [address] Luis Villasenor MD [address] [facility] [place] [address] Follow Up (Need diagnosis code on infusion order - ok to handwrite on order - please fax to [phone]) Social History Tobacco Use Types Packs/Day Years [...] EDT Please advise * Telephone Encounter - Munoz AkilahMIKALA iyer - 12/01/2024 11:49 AM EDT Select the most appropriate reason for this telephone message: Follow Up Follow Up Who is Calling:[facility] (include which hospital and caller's name) What is the caller following up on (make sure to reference any prior documentation/encounter):Need diagnosis code on infusion order - ok to handwrite on order - please fax to [phone]. Further follow-up needed?:Yes Return Method of Communication:Phone call Additional Information:N/A Fax number [phone]. Thank you. documented in this encounter Plan [...] documented as of this encounter Care Teams Acid Condenser Relationship Specialty Start Date End Date Luis Villasenor MD [address] [place] [phone] PCP - OBGYN 01/09/10 Luis Villasenor MD [address] [place] [phone] PCP - General 01/09/10 documented as of this encounter
--- OUTSIDE RECORDS SUMMARY | 2024-12-21 13:18 | XMS_ITS | Encounter Summary ---
Author Organization [place] [address] Care Team Providers Care Computer Architect Name Role Phone Luis Villasenor MD Unavailable [phone] Luis Villasenor MD Primary Care Provider [phone] Reason for Visit * Reason Onset Date Comments Relaying Information 10/26/2024 Reporting n ew issues with pain. Encounter Details Date Type Department Care Team (Late st Contact Info) Description 10/26/2024 Telephone SEP Sarah [facility] [place] [address] Luis Villasenor MD [employer] [facility] [place] [phone] Relaying Information (Reporting new issues with [...] documented as of this encounter Care Teams Computer Architect Relationship Specialty Start Date End Date Luis Villasenor MD [address] [employer] [facility] [place] [phone] PCP - OBGYN 01/09/10 Luis Villasenor MD [address] [employer] [facility] [place] [phone] PCP - General 01/09/10 documented as of this encounter
--- OUTSIDE RECORDS SUMMARY | 2024-12-21 13:18 | XMS_ITS | Encounter Summary ---
Author Organization [place] [address] Care Team Providers Care Quality Auditor Name Role Phone Luis Villasenor MD Unavailable [phone] Luis Villasenor MD Primary Care Provider Encounter Details Date Type Department Care Team (Late Contact Info) Description 11/11/2024 Orders Only SEP Sarah [address] [place] [phone] Amarilis Nolan, MANAGER COUNTRY [address] [place] [address] Flank pain (Primary Dx); Blood loss; [...] 02/09/2020 8:59 AM EDNghia Paris CMA documented as of this encounter Mental [...] 3:44 PM EDT [facility] Caswell Percent 8.3 % 11/14/2024 3:44 PM EDT [facility] Eos Percent 3.5 % 11/14/2024 3:44 PM EDT [facility] Baso Percent 0.6 % 11/14/2024 3:44 PM EDT [facility] Neut # 7.7(H) 1.6 - 6.1 x10(3)/mcL 11/14/2024 3:44 PM EDT [facility] Comment:Neutrophils equals s egs plus bands IMMGRAN# 0.1 0.0 - 0.1 x10(3)/[facility] 11/14/2024 3:44 PM EDT [facility] Comment:Automated count of m etamyelocytes, myelocytes and promyelocytes. An absolute IG <0.1 is reported as 0.0. Lymph # 1.0(L) 1.2 - 3.9 x10(3)/[facility] 11/14/2024 3:44 PM EDT [facility] [place]well # 0.8 0.3 - 0.9 x10(3)/[facility] 11/14/2024 3:44 PM EDT [facility] Eos# 0.4 0.0 - 0.5 x10(3)/[facility] 11/14/2024 3:44 PM EDT [facility] Baso # 0.1 0.0 - 0.1 x10(3)/[facility] 11/14/2024 3:44 PM EDT [facility] Blood VENOUS BLOOD / Unknown Venipuncture / Unknown 11/14/2024 10:07 AM EDT 11/14/2024 10:07 AM EDT Amarilis Nolan MANAGER COUNTRY HEMATOLOGY ORDERABLES Fin al Result [facility] [address] [facility] , [place] [address] * (ABNORMAL) COMPREHENSIVE METABOLIC PANEL (11/14/2024 10:07 AM EDT) Sodium 133(L) 136 - 145 mmol/L 11/14/2024 4:07 PM EDT [facility] Potassium 4.5 3.5 - 5.0 mmol/L 11/14/2024 4:07 PM EDT [facility] Chloride 94(L) 98 - 107 mmol/L 11/14/2024 4:07 PM EDT [facility] Total CO2 29 22 - 29 mmol/L 11/14/2024 4:07 PM EDT [facility] Anion Gap 10 7 - 16 mmol/L 11/14/2024 4:07 PM EDT [facility] Calcium 9.2 8.8 - 10.4 mg/dL 11/14/2024 4:07 PM EDT [facility] Glucose Lvl 122(H) 70 - 99 mg/dL 11/14/2024 4:07 PM EDT [facility] BUN 15 8 - 23 mg/dL 11/14/2024 4:07 PM EDT [facility] Creatinine 1.38(H) 0.51 - 1.30 mg/dL 11/14/2024 4:07 PM EDT [facility] Albumin 3.4 3.2 - 4.6 gm/dL 11/14/2024 4:07 PM EDT [facility] Total Protein 7.8 6.4 - 8.3 gm/dL 11/14/2024 4:07 PM EDT [facility] Bili Total 0.6 0.2 - 1.3 mg/dL 11/14/2024 4:07 PM EDT [facility] ALT <5 <=41 U/L 11/14/2024 4:07 PM EDT [facility] AST 23 <=40 U/L 11/14/2024 4:07 PM EDT [facility] Alk Phos 465(H) 36 - 123 U/L 11/14/2024 4:07 PM EDT [facility] eGFR (CKD-EPIcr 2020) 39(L) >=60 mL/min/1.7 3 m2 11/14/2024 4:07 PM EDT [facility] Comment:Estimated GFR was ca lculated using the CKD-EPIcr (2020) equation refit without race. The equation is recommended by the [employer] - [place] [employer]ph[employer] Task Force. Blood VENOUS BLOOD / Unknown Venipuncture / Unknown 11/14/2024 10:07 AM EDT 11/14/2024 10:07 AM EDT us Amarilis Nolan MANAGER COUNTRY CHEMISTRY ORDERABLES Kell orlando Result [facility] [address] [facility] [address] , [address] [place], [place] [id number] documented in this encounter Visit Diagnoses Diagnosis Flank pain- Primary Abdominal pain, unspecified site Blood loss Hemorrhage, unspecified Dehydration documented in this encounter Additional Health Concerns Assessment Noted Time A fall risk assessment has been complete d for the patient 06/14/2024 9:03 AM EST documented as of this encounter Care Teams Quality Auditor Relationship Specialty Start Date End Date Luis Villasenor MD [address] [place] [phone] PCP - OBGYN 01/09/10 Luis Villasenor MD [address] [place] [phone] PCP - General 01/09/10 documented as of this encounter
--- OUTSIDE RECORDS SUMMARY | 2024-12-21 13:19 | XMS_ITS | Continuity of Care Document ---
Author Organization [facility] Address [address] [facility] [address] [place] [address] Care Team Providers Care Floor Molder Name Role Phone ADDY GONZALES General Surgeon CARLOS A COATS Primary Care Provider [phone] VERONIKA RIVER Loan Secretary [phone] Assessment No assessment recorded. Plan of Treatment Reminders Order Date Submit Date Provider Last Modified By Organization Details Last Modified Time Details Appointments OV EST 30 2024 11:30A M Hanna Snider PA-C Not available Not available Not available OV EST 15 2024 10:30A M Tomy King MD Not available Not available Not available Lab carcinoem bryonic Ag, quant, serum or plasma [address] Lab, [address] [facility], [place], [address], 12/21/2024 12:55:08 CMP, serum or plasma 2024 025 [facility], [address] [facility], [place], [address], 12/21/2024 12:55:08 CBC w/ diff [address] Lab, [address] [facility], [place], [address], 12/21/2024 12:55:08 Referral None recorded. Procedures None recorded. Surgeries None recorded. Imaging None recorded. Medication Orders None recorded. Patient TargetsNo targets recorded. Patient InstructionsNo instructions recorded. Reason for Referral None Reported. Results Created Date Observation Date Name Description Value Unit Range Abnormal Flag Note LastModifiedBy Organization Detail LastModifiedTime 12/01/1911/30/2024 CBC AUTO W DIFF WBC 9.0 K/uL 4.0-10 .5 Not Available [facility] [address] , [place], [address], 11/30/2024 13:41:32 12/01/19 25 11/30/2024 CBC AUTO W DIFF RBC 3.7 M/mm3 4.2-6. 4 low Not Available [facility] ([facility] [address] , [place], [address], 11/30/2024 13:41:32 12/01/19 25 11/30/2024 CBC AUTO W DIFF HGB 10.2 gm/dL 12.5-1 6.0 low Not Available [facility] [address] , [place], [address], 11/30/2024 13:41:32 12/01/19 25 11/30/2024 CBC AUTO W DIFF HCT 32.3 % 37.0-4 7.0 low Not Available [facility] [address] , [place], [address], 11/30/2024 13:41:32 12/01/19 25 11/30/2024 CBC AUTO W DIFF MCV 86.8 fL 78-100 Not Available [facility] [address] , [place], [address], 11/30/2024 13:41:32 12/01/19 25 11/30/2024 CBC AUTO W DIFF MCH 27.4 pg 27-31 Not Available [facility] [address] , [place], [address], 11/30/2024 13:41:32 12/01/19 25 11/30/2024 CBC AUTO W DIFF MCHC 31.6 g/dL 32-36 low Not Available [facility] [address] , [place], [address], 11/30/2024 13:41:32 12/01/19 25 11/30/2024 CBC AUTO W DIFF RDW 14.4 % 11.5-1 4.0 high Not Available [facility] [address] , [place], [address], 11/30/2024 13:41:32 12/01/19 25 11/30/2024 CBC AUTO W DIFF platelet count 260 K/uL 150-45 0 Not Available [facility] [address], [place], [address], 11/30/2024 13:41:32 12/01/19 25 11/30/2024 CBC AUTO W DIFF MPV 9.6 fL 6-9.5 high Not Available [facility] [address] [place], [address], 11/30/2024 13:41:32 12/01/19 25 11/30/2024 CBC AUTO W DIFF neutrophil% 72.3 % 43-65 high Not Available [facility] ([facility] [address] [place], [address], 11/30/2024 13:41:32 12/01/19 25 11/30/2024 CBC AUTO W DIFF lymphocyte% 14.6 % 20.5-4 5.5 low Not Available [facility] [address] [place], [address], 11/30/2024 13:41:32 12/01/19 25 11/30/2024 CBC AUTO W DIFF monocyte% 8.1 % 5.5-11 .7 Not Available [facility] [address] [place], [address], 11/30/2024 13:41:32 12/01/19 25 11/30/2024 CBC AUTO W DIFF eosinophil% 3.6 % 0.9-2. 9 high Not Available [facility] [address], [place], [address], 11/30/2024 13:41:32 12/01/19 25 11/30/2024 CBC AUTO W DIFF basophil% 0.7 % 0.2-1. 0 Not Available [facility] [address] [facility], [place], [address], 11/30/2024 13:41:32 12/01/19 25 11/30/2024 CBC AUTO W DIFF immature granulocytes % 0.7 % 0.0-0. 8 Not Available [facility] [address] [facility], [place], [address], 11/30/2024 13:41:32 12/01/19 25 11/30/2024 CBC AUTO W DIFF nucleated red blood cells % 0.0 % Not Available [facility] ([facility]) [address] [place], [address], 11/30/2024 13:41:32 12/01/19 25 11/30/2024 CBC AUTO W DIFF neutrophil# 6.5 K/uL 2.2-4. 8 high Not Available [facility] [address] [place], [address], 11/30/2024 13:41:32 12/01/19 25 11/30/2024 CBC AUTO W DIFF lymphocyte# 1.3 cell/ mcL 1.3-2. 9 Not Available [facility] [address] [place], [address], 11/30/2024 13:41:32 12/01/19 25 11/30/2024 CBC AUTO W DIFF monocyte# 0.7 cell/ mcL 0.3-0. 8 Not Available [facility] ([facility] [address], [place], [address], 11/30/2024 13:41:32 12/01/19 25 11/30/2024 CBC AUTO W DIFF eosinophil# 0.3 cell/ mcL 0-0.2 high Not Available [facility] [address], [place], [address], 11/30/2024 13:41:32 12/01/19 25 11/30/2024 CBC AUTO W DIFF basophil# 0.1 cell/ mcL 0.0-1. 0 Not Available [facility] [address], [place], [address], 11/30/2024 13:41:32 12/01/19 25 11/30/2024 CBC AUTO W DIFF immature gramulocytes # 0.06 K/uL Not Available [facility] ([facility] [address], [place], [address], 11/30/2024 13:41:32 12/01/19 25 11/30/2024 CBC AUTO W DIFF nucleated red blood cells # 0.00 K/uL Not Available [facility]) [address] [facility], [place], [address], 11/30/2024 13:41:32 12/01/19 25 11/30/2024 CBC AUTO W DIFF manual differential NO Not Available [facility] [address] [place], [address], 11/30/2024 13:41:32 12/01/19 25 11/30/2024 COMP METAB OLIC PANEL sodium 129 mmol/ L 136-14 5 low Not Available [facility] [address] [place], [address], 11/30/2024 13:45:48 12/01/19 25 11/30/2024 COMP METAB OLIC PANEL potassium 4.8 mmol/ L 3.6-5. 0 Not Available [facility] [address] , [place], [address], 11/30/2024 13:45:48 12/01/19 25 11/30/2024 COMP METAB OLIC PANEL chloride 93 mmol/ L 98-107 low Not Available [facility] [address], [place], [address], 11/30/2024 13:45:48 12/01/19 25 11/30/2024 COMP METAB OLIC PANEL carbon dioxide 25.2 mmol/ L 21.0-3 2.0 Not Available [facility] [address], [place], [address], 11/30/2024 13:45:48 12/01/19 25 11/30/2024 COMP METAB OLIC PANEL anion gap 15.6 Not Available [facility] ([facility] [address], [place], [address], 11/30/2024 13:45:48 12/01/19 25 11/30/2024 COMP METAB OLIC PANEL glucose 110 mg/dL 70-120 Not Available [facility] [address] [place], [address], 11/30/2024 13:45:48 12/01/19 25 11/30/2024 COMP METAB OLIC PANEL BUN 38 mg/dL 7-18 high Not Available [facility] [address] [place], [address], 11/30/2024 13:45:48 12/01/19 25 11/30/2024 COMP METAB OLIC PANEL creatinine 2.6 mg/dL 0.6-1. 3 high Not Available [facility] ([facility] [address] , [place], [address], 11/30/2024 13:45:48 12/01/19 25 11/30/2024 COMP METAB [...] albrecht ing kiney funct ion. Not Available [facility] [address] , [place], [address], 11/30/2024 13:45:48 12/01/19 25 11/30/2024 COMP METAB OLIC PANEL osmolality (calculated) 279 mOsm/ kg 275-30 1 OSMOL ALITY IS A CALCU LATIO N UTILI ZING THE SERUM /PLAS MA SODIU M, GLUCO SE AND UREA NITRO GEN (BUN) LEVEL S. FOR THE MOST ACCUR ATE RESUL T A MEASU RED SERUM OSMOL ALITY IS SUGGE STED. Not Available [facility] [address] , [place], [address], 11/30/2024 13:45:48 12/01/19 25 11/30/2024 COMP METAB OLIC PANEL total protein 8.4 g/dL 6.4-8. 2 high Not Available [facility] [address] , [place], [address], 11/30/2024 13:45:48 12/01/19 25 11/30/2024 COMP METAB OLIC PANEL albumin 2.6 g/dL 3.4-5. 0 low Not Available [facility] [address] , [place], [address], 11/30/2024 13:45:48 12/01/19 25 11/30/2024 COMP METAB OLIC PANEL globulin 5.8 Not Available [facility] [address] , [place], [address], 11/30/2024 13:45:48 12/01/19 25 11/30/2024 COMP METAB OLIC PANEL alb/glob ratio 0.4 0.7-2 low Not Available [facility] ([facility]) [address] , [place], [address], 11/30/2024 13:45:48 12/01/19 25 11/30/2024 COMP METAB OLIC PANEL calcium 9.5 mg/dL 8.5-10 .5 Not Available [facility] [address], [place], [address], 11/30/2024 13:45:48 12/01/19 25 11/30/2024 COMP METAB OLIC PANEL bilirubin total 0.80 mg/dL 0.10-1 .00 Not Available [facility] [address], [place], [address], 11/30/2024 13:45:48 12/01/19 25 11/30/2024 COMP METAB OLIC PANEL AST (SGOT) 111 U/L 0-37 high Not Available [facility] [address] , [place], [address], 11/30/2024 13:45:48 12/01/19 25 11/30/2024 COMP METAB OLIC PANEL ALT (SGPT) 20 U/L 0-65 Not Available [facility] ([facility] [address], [place], [address], 11/30/2024 13:45:48 12/01/19 25 11/30/2024 COMP METAB OLIC PANEL alk phosphatase 490 U/L 46-116 high Not Available [facility] ([facility] [address], [place], [address], 11/30/2024 13:45:48 12/01/19 25 12/01/2024 CEA cea [...] t be inter prete d as absol quechan evide nce of the prese nce or absen ce of [facility] . Perfo rmed at: [facility] [address] [place], [place] [id number] [facility] Lab Direc tor: Tate staton PhD, Phone : [phone] Not Available [facility] [address] [facility], [place], [address], 12/01/2024 11:12:48 Result Notes None recorded. Problems Name Problem SNOMED Code Status Onset Date Resolution Date Notes Provider Name and Address Organization Details Recorded Time Metastatic malignant neoplasm to liver 80658060 Active 2022 Ghassan Lieberman PA-C [address] , [place], [address] , [place] - [facility] - [place] & [place] 3 14:27:25 Mass of colon 969348494 Active 2022 Ghassan Lieberman PA-C [address] , [place], [address] , [place] [facility] [place] 3 14:27:30 Anemia 545131909 Active 2022 Ghassan Lieberman PA-C [address] , [place], [address] , [place] [facility] [place] 3 14:27:36 Nausea and vomiting 89602336 Active 2022 Ghassan Lieberman PA-C [address] , [place], [address] , [place] [facility] [place] 3 14:27:46 Unintentional weight loss 944875904 Active 2022 Ghassan Lieberman PA-C [address] , [place], [address] , [place] [facility] [place] 3 16:13:07 Night sweats 43495484 Active 2022 Ghassan Lieberman PA-C [address] [facility], [place], [address] , [place] [facility] [place] 3 16:13:12 Headache 55344217 Active 2024 Christine yusuf, [place] [facility] [place] 5 10:27:12 Problem Notes None recorded. Procedures Surgical History Date Name Laterality Status Provider Name and Address Organization Details Recorded Time 04/29/20 23 Venipuncture completed Hanna Snider PA-C [address] , [place], [address], [place] [facility] [place] 04/27/2023 15:05:29 04/15/20 23 Venipuncture completed Stephanie Maravilla [place] [facility] & [place] 04/15/2023 15:24:55 hysterectomy completed Laurel Workman [place] [facility] [place] 03/11/2023 15:30:22 extraction of cataract completed Laurel Workman [place] [facility] [place] 03/11/2023 15:30:36 excision of colon completed Loree Tadeo [place] [facility] & [place] 04/21/2023 11:32:07 Imaging Results None recorded. Procedure Notes None recorded. Medical Equipment None Reported. Allergies Allergen ID Allergen Name Allergen Category Reaction Reaction Severity Criticality Documentation Date Start Date Code Code System Note Provider Name and Address Organization Details Recorded Time 27517 tetracycl ine medicatio n hives Not available [facility] 02/19/2023 58766 RxNorm Brandy Raheem null, [place] [facility] [place] 3 14:03:33 Medications Name Sig Start Date [...] Available Not Available Not Available amoxicillin 500 mg-potassigadiel goldie clavulanate 125 mg tablet TAKE ONE TABLET [...] Details Last Updated DateTime 5 162.56 cm 98.5 [degF] 88 % 88 % 53 /min 18 /min 96/51 mm[Hg] Laurel Lai [facility] & [place] 5 11:20:39 Social History Question Answer Notes LastModified by Organizat ion Details LastModified Time Tobacco Smoking Status Never Smoker CURT Johnston [facility] & [place] 02/19/2023 14:02:59 What Is Your Level Of Caffeine Consumption? None [email or web address] Information not available 02/19/2023 What Was The Date Of Your Most Recent Tobacco Screening? 11/23/2023 [email or web address] Information not available 11/23/2023 Has Tobacco Cessation Counseling Been Provided? No Information not available 07/13/2023 Sex: Unknown Functional Status Question Answer Note LastModified by Organizat ion Details LastModified Time Do you use any illicit or recreational drugs? No [email or web address] Information not available 02/19/2023 Do you or have you ever used any other forms of tobacco or nicotine? No [email or web address] Information not available 02/19/2023 What is your level of alcohol consumption? None [email or web address] Information not available 02/19/2023 Mental Status None recorded. Family History Nothing Reported. Medical History No medical history recorded. Gynecological HistoryNo gynecological history recorded. Obstetrics History GPAL:G 0 P 0 0 0 0 Immunizations Vaccine Type Date Status Note Provider Nam e and Address Organization Details Recorded Time pneumococcal polysaccharide PPV23 7 completed StephanieCURT Epps [facility] & [place] 12/21/2023 09:56:34 Past Encounters Encounter ID Performer Location Encounter Start Date Encounter Closed Date Diagnosis/Indication Diagnosis SNOMED-CT Code Diagnosis ICD10 Code Diagnosis Note [id number] Hanna Snider PA-C [facility] [address] [place] [address] 11/30/2024 10:57:07 11/30/2024 11:54:59 Antineoplastic chemotherapy regimen 350161197 Z51.11 Week 1 5FU Leucovorin Vectibix on [...] 25, 2024. Malignant tumor of ascending colon 081751822 C18.2 CT scan of the abdomen and [...] 8.2 hematocrit 29.0. MCV 67.9. Platelet count 119680. Normal cell differenti al. Low serum folate [...] study published in September 2022 in the [place] [facility] of combined Avastin therapy with [...] malignancy . Metastatic malignant neoplasm to liver 86999679 C78.7 CT scan of the abdomen and [...] any treatment for her malignancy . Nausea 235324561 R11.0 As needed Zofran and Phenergan prescribed . Discussed trying scopolamin e patches but her insurance wouldn't cover. Discussed starting Ativan and Reglan is needed for nausea and vomiting. Pain due t o neoplastic disease 3023369837 9102 G89.3 Abdominal pain has improved and pain is controlled with current pain medication s. Anemia 114631176 D64.9 Right-side d colon mass concerning for malignancy . Will assess for any signs of iron deficiency . Hemoglobin previously 8.0. Concern for blood loss from colon mass. Patient reports dark stools. Labs on August 10, 2024 with hemoglobin slightly low at 11.9. She is receiving infusional iron as needed. Adopted 296075687 Z62.89 8 Patient is adopted and discussed hereditary gene panel. Patient does have family history of her son having bladder cancer. [facility] hereditary panel sent Hypokalemia 59173265 E87 .6 Currently taking for potassium 20 mEq daily. Will follow up labs. Mixed anxi ety and depressive disorder 302566835 F41.8 Patient returns on November 23, 2023. [...] reports depression has improved. Atopic conjunctivitis 23 6742684 H10.12 Conjunctiv itis due to Vectibix. This has improved. Iron defic iency anemia 12082402 D50.9 Receiving infusional iron as needed. Will continue to monitor. Insomnia 460996461 G47.0 0 Patient has had difficulty sleeping for most of her life. She has tried multiple medication s without relief. She is tried Mirtazapin e and lorazepam without improvemen t of insomnia. Discussed trying trazodone instead. Restless legs 73200334 G 25.81 Patient taking Requip for restless legs. Generalized rash 2516259 06 R21 Rash due to Vectibix. This has improved. Atrial fibrillation 4943 6004 I48.91 Patient has been diagnosed with congestive heart failure and atrial fibrillati on. She has been started on Coumadin. She is following with the Coumadin clinic at [facility]. Congestive heart failure 94003821 I50.9 Patient has been diagnosed with congestive heart failure. She has started lasix and is following with a cardiologi st. Cachexia 648572002 R64 Patient has had decreased appetite and weight loss. She is drinking nutritiona l supplement s. Discussed appetite stimulant. Patient previously refused. She has started on Megace. She does not like the taste of Megace. Discussed Megace tablets instead of liquid but patient declines at this time. Will continue to monitor History of deep vein thrombosis 631575643 Z86.718 Patient developed right lower extremity pain [...] repeat venous duplex. Drug therapy finding 309 097424 Z79.01 She continues on Coumadin due to a fib. She is following with the Coumadin clinic at [facility]. Candidiasis of skin 4988 3006 B37.2 Patient has intermitte nt rash consistent with candidiasi s under her breasts folds. She has nystain powder to use as needed. Dehydration 84447087 E86 .0 Patient returns on November 30, 2024. Patient feels dehydrated today. She did not drink much water yesterday. Her appetite is fair and weight is stable. Will give 1 L IV fluids today. [id number] Hanna Snider PA-C [facility] [address] [place] [address] 12/21/2024 10:57:49 12/21/2024 12:59:49 Antineoplastic chemotherapy regimen 756126058 Z51.11 Week 1 5FU Leucovorin Vectibix on [...] 25, 2024. Malignant tumor of ascending colon 112338017 C18.2 CT scan of the abdomen and [...] 8.2 hematocrit 29.0. MCV 67.9. Platelet count 887618. Normal cell differenti al. Low serum folate [...] study published in September 2022 in the [place] [facility] of combined Avastin therapy with Lonsurf. Phase 3 trial with median overall survival of 10.8 months in combinatio n therapy verses 7.5 months Lonsurf alone. Progressio n-free survival 5.6 months versus 2.4 months in Lonsurf alone therapy. Patient does not want to proceed with any chemothera py. She does not want to do any treatment for her malignancy . She does not wish to proceed with hospice at this time. Metastatic malignant neoplasm to liver 30579926 C78.7 CT scan of the abdomen and [...] any treatment for her malignancy . Nausea 563684537 R11.0 As needed Zofran and Phenergan prescribed . Discussed trying scopolamin e patches but her insurance wouldn't cover. Discussed starting Ativan and Reglan is needed for nausea and vomiting. Pain due t o neoplastic disease 5526397860 9102 G89.3 Abdominal pain has improved and pain is controlled with current pain medication s. Anemia 099566445 D64.9 Right-side d colon mass concerning for malignancy . Will assess for any signs of iron deficiency . Hemoglobin previously 8.0. Concern for blood loss from colon mass. Patient reports dark stools. Labs on August 10, 2024 with hemoglobin slightly low at 11.9. She is receiving infusional iron as needed. Adopted 016712638 Z62.89 8 Patient is adopted and discussed hereditary gene panel. Patient does have family history of her son having bladder cancer. [facility] hereditary panel sent Hypokalemia 13609806 E87 .6 Currently taking for potassium 20 mEq daily. Will follow up labs. Mixed anxi ety and depressive disorder 969007438 F41.8 Patient returns on November 23, 2023. [...] reports depression has improved. Atopic conjunctivitis 23 4399455 H10.12 Conjunctiv itis due to Vectibix. This has improved. Iron defic iency anemia 13958164 D50.9 Receiving infusional iron as needed. Will continue to monitor. Insomnia 566780321 G47.0 0 Patient has had difficulty sleeping for most of her life. She has tried multiple medication s without relief. She is tried Mirtazapin e and lorazepam without improvemen t of insomnia. Discussed trying trazodone instead. Restless legs 77646292 G 25.81 Patient taking Requip for restless legs. Generalized rash 4545716 06 R21 Rash due to Vectibix. This has improved. Atrial fibrillation 4943 6004 I48.91 Patient has been diagnosed with congestive heart failure and atrial fibrillati on. She has been started on Coumadin. She is following with the Coumadin clinic at [facility]. Congestive heart failure 56351700 I50.9 Patient has been diagnosed with congestive heart failure. She has started lasix and is following with a cardiologi . Cachexia 408199052 R64 Patient has had decreased appetite and weight loss. She is drinking nutritiona l supplement s. Discussed appetite stimulant. Patient previously refused. She has started on Megace. She does not like the taste of Megace. Discussed Megace tablets instead of liquid but patient declines at this time. Will continue to monitor History of deep vein thrombosis 710775690 Z86.718 Patient developed right lower extremity pain [...] repeat venous duplex. Drug therapy finding 309 446937 Z79.01 She continues on Coumadin due to a fib. She is following with the Coumadin clinic at [facility]. Candidiasis of skin 4988 3006 B37.2 Patient has intermitte nt rash consistent with candidiasi s under her breasts folds. She has nystain powder to use as needed. Dehydration 54637932 E86 .0 Patient returns on December 21, 2024. Patient feels dehydrated today. She has not been eating or drinking much. She has had nausea and vomiting. This is relieved with zofran. Will give IV fluids and zofran today. Will follow up labs today. Health Concerns Section Related Observation LastModified by Organization Shonna medina LastModified Time None Recorded Concern Status LastModified by Organization Details LastModified Time None Recorded Payers Encounter Date Sequence Insurance Name Policy Number Policy Bell Covered Member ID Bell Member ID Guarantor Name 12/21/2024 1 [place] Vicky Roblero [id number] Vicky Roblero 12/21/2024 2 [employer] (MEDICARE SUPPLEMENT) Vicky Roblero [id number] Vicky Roblero Notes Date Note Type Note Provider Name and Address Organization Details Recorded Time 12/21/2024 text/html 79 yo F returns for evaluation of metastatic colon cancer. Patient recently seen on February 17, 2023 in the emergency room at [facility] with abdominal pain. Patient reported epigastric [...] 8.2 hematocrit 29.0. MCV 67.9. Platelet count 996924. Normal cell differential. Low serum folate of [...] with metastatic colorectal cancer. Discussed chemotherapy with [place] based regimen with 5FU Leucovorin if [...] is following with the Coumadin clinic at [facility]. She is scheduled for cardiac MRI. [...] study published in September 2022 in the [facility] of combined Avastin therapy with [...] with enlarging periportal adenopathy. Patient returns on December 21, 2024. Patient feels dehydrated today. She has not been eating or drinking much. She has had nausea and vomiting. This is relieved with zofran. Will give IV fluids and zofran today. Abdominal pain has worsened but pain is controlled with current pain medications. Patient is no longer receiving any chemotherapy. She has not want to proceed with any chemotherapy. Labs on November 30, 2024 with increasing CEA to 387. Elevated liver enzymes. Discussed likely disease progression. Discussed hospice is an option since she does not want to do any treatment for her malignancy. Patient states she is not ready for hospice yet. She states she will let me know when she is ready. She is receiving infusional iron per her PCP today. Will follow up labs today. Hanna Snider PA-C [id number], [place], [id number], [facility] - [place] & [place] 12/21/2024 12:55:38 OBGyn Episode No OBEpisode recorded.
--- OUTSIDE RECORDS SUMMARY | 2024-12-21 13:19 | XMS_ITS | Encounter Summary ---
Author Organization [place] [address] Care Team Providers Care Directional Drill Operator Name Role Phone Luis Villasenor MD Unavailable [phone] Luis Villasenor MD Primary Care Provider Reason for Visit * Reason Onset Date Comments Orders 11/25/2024 Encounter Details Date Type Department Care Team (Late Contact Info) Description 11/25/2024 Telephone SEP Sarah [address] [place] [address] Amarilis Nolan, SLITTER AND REWINDER [address] [place] [address] Orders Social History Tobacco Use Types [...] documented as of this encounter Care Teams Directional Drill Operator Relationship Specialty Start Date End Date Luis Villasenor MD [address] [place] [id number] PCP - OBGYN 01/09/10 Luis Villasenor MD [address] [place] [id number] PCP - General 01/09/10 documented as of this encounter
--- OUTSIDE RECORDS SUMMARY | 2024-12-21 13:19 | XMS_ITS | Encounter Summary ---
Author Organization [place] [address] Care Team Providers Care Administrative Support Clerk Name Role Phone Luis Villasenor MD Unavailable [phone] Luis Villasenor MD Primary Care Provider [phone] Encounter Details Date Type Department Care Team (Late Contact Info) Description 11/28/2024 Orders Only SEP Sarah [address] [place] [phone] Amarilis Nolan, ASSISTANT MEDIA BU[employer]ER [address] [place] [address] 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 due to chronic [...] documented as of this encounter Care Teams Administrative Support Clerk Relationship Specialty Start Date End Date Luis Villasenor MD [address] [place] [phone] PCP - OBGYN 01/09/10 Luis Villasenor MD [address] [place] [phone] PCP - General 01/09/10 documented as of this encounter
--- OUTSIDE RECORDS SUMMARY | 2024-12-21 13:19 | XMS_ITS | Continuity of Care Document ---
Author Organization [facility] Address [address] [place] [address] Care Team Providers Care Vascular Technologist Name Role Phone ADDY GONZALES General Surgeon CARLOS A COATS Primary Care Provider [phone] VERONIKA RIVER Rn Visiting [phone] Assessment No assessment recorded. Plan of Treatment Reminders Order Date Submit Date Provider Last Modified By Organization Details Last Modified Time Details Appointments OV EST 30 2024 11:30A M Hanna Snider PA-C Not available Not available Not available OV EST 15 2024 10:30A M Tomy King MD Not available Not available Not available Lab carcinoem bryonic Ag, quant, serum or plasma 2024 025 [email or web address] [facility], [address] [place], [address], 12/07/2024 08:57:02 CMP, serum or plasma 2024 025 ISABEL [facility], [address] [place], [address], 11/30/2024 13:45:48 CBC w/ diff 2024 025 [email or web address] [facility], [address] [place], [address], 12/07/2024 08:57:02 Referral None recorded. Procedures None recorded. Surgeries None recorded. Imaging None recorded. Medication Orders None recorded. Patient TargetsNo targets recorded. Patient InstructionsNo instructions recorded. Reason for Referral None Reported. Results Created Date Observation Date Name Description Value Unit Range Abnormal Flag Note LastModifiedBy Organization Detail LastModifiedTime 11/02/1911/01/2024 CBC AUTO W DIFF WBC 6.7 K/uL 4.0-10 .5 Not Available [facility] ([facility]) [address] , [place], [address], 11/01/2024 15:32:39 11/02/19 25 11/01/2024 CBC AUTO W DIFF RBC 3.2 M/mm3 4.2-6. 4 low Not Available [facility] ([facility]) [address], [place], [address], 11/01/2024 15:32:39 11/02/19 25 11/01/2024 CBC AUTO W DIFF HGB 9.0 gm/dL 12.5-1 6.0 low Not Available [facility] ([facility]) [address], [place], [address], 11/01/2024 15:32:39 11/02/19 25 11/01/2024 CBC AUTO W DIFF HCT 28.9 % 37.0-4 7.0 low Not Available [facility] ([facility]) [address] , [place], [address], 11/01/2024 15:32:39 11/02/19 25 11/01/2024 CBC AUTO W DIFF MCV 90.9 fL 78-100 Not Available [facility] ([facility]) [address] , [place], [address], 11/01/2024 15:32:39 11/02/19 25 11/01/2024 CBC AUTO W DIFF MCH 28.3 pg 27-31 Not Available [facility] ([facility]) [address] [place], [address], 11/01/2024 15:32:39 11/02/19 25 11/01/2024 CBC AUTO W DIFF MCHC 31.1 g/dL 32-36 low Not Available [facility] ([facility]) [address] , [place], [address], 11/01/2024 15:32:39 11/02/19 25 11/01/2024 CBC AUTO W DIFF RDW 14.5 % 11.5-1 4.0 high Not Available [facility] ([facility]) [address] , [place], [address], 11/01/2024 15:32:39 11/02/19 25 11/01/2024 CBC AUTO W DIFF platelet count 257 K/uL 150-45 0 Not Available [facility] ([facility]) [address] , [place], [address], 11/01/2024 15:32:39 11/02/19 25 11/01/2024 CBC AUTO W DIFF MPV 9.6 fL 6-9.5 high Not Available [facility] ([facility]) [address] [place], [address], 11/01/2024 15:32:39 11/02/19 25 11/01/2024 CBC AUTO W DIFF neutrophil% 75.3 % 43-65 high Not Available [facility] ([facility]) [address] , [place], [address], 11/01/2024 15:32:39 11/02/19 25 11/01/2024 CBC AUTO W DIFF lymphocyte% 13.9 % 20.5-4 5.5 low Not Available [facility] ([facility]) [address] [place], [address], 11/01/2024 15:32:39 11/02/19 25 11/01/2024 CBC AUTO W DIFF monocyte% 7.5 % 5.5-11 .7 Not Available [facility] ([facility]) [address] [place], [address], 11/01/2024 15:32:39 11/02/19 25 11/01/2024 CBC AUTO W DIFF eosinophil% 2.2 % 0.9-2. 9 Not Available [facility] ([facility]) [address], [place], [address], 11/01/2024 15:32:39 11/02/19 25 11/01/2024 CBC AUTO W DIFF basophil% 0.4 % 0.2-1. 0 Not Available [facility] ([facility]) [address] [place], [address], 11/01/2024 15:32:39 11/02/19 25 11/01/2024 CBC AUTO W DIFF immature granulocytes % 0.7 % 0.0-0. 8 Not Available [facility] ([facility]) [address] [place], [address], 11/01/2024 15:32:39 11/02/19 25 11/01/2024 CBC AUTO W DIFF nucleated red blood cells % 0.0 % Not Available [facility] ([facility]) [address] [place], [address], 11/01/2024 15:32:39 11/02/19 25 11/01/2024 CBC AUTO W DIFF neutrophil# 5.0 K/uL 2.2-4. 8 high Not Available [facility] ([facility]) [address] [place], [address], 11/01/2024 15:32:39 11/02/19 25 11/01/2024 CBC AUTO W DIFF lymphocyte# 0.9 cell/ mcL 1.3-2. 9 low Not Available [facility] ([facility]) [address] [place], [address], 11/01/2024 15:32:39 11/02/19 25 11/01/2024 CBC AUTO W DIFF monocyte# 0.5 cell/ mcL 0.3-0. 8 Not Available [facility] ([facility]) [address] , [place], [address], 11/01/2024 15:32:39 11/02/19 25 11/01/2024 CBC AUTO W DIFF eosinophil# 0.2 cell/ mcL 0-0.2 Not Available [facility] ([facility]) [address], [place], [address], 11/01/2024 15:32:39 11/02/19 25 11/01/2024 CBC AUTO W DIFF basophil# 0.0 cell/ mcL 0.0-1. 0 Not Available [facility] ([facility]) [address], [place], [address], 11/01/2024 15:32:39 11/02/19 25 11/01/2024 CBC AUTO W DIFF immature gramulocytes # 0.05 K/uL Not Available [facility] ([facility]) [address], [place], [address], 11/01/2024 15:32:39 11/02/19 25 11/01/2024 CBC AUTO W DIFF nucleated red blood cells # 0.00 K/uL Not Available [facility] ([facility]) [address], [place], [address], 11/01/2024 15:32:39 11/02/19 25 11/01/2024 CBC AUTO W DIFF manual differential NO Not Available [facility] ([facility]) [address], [place], [address], 11/01/2024 15:32:39 11/02/19 25 11/01/2024 COMP METAB OLIC PANEL sodium 139 mmol/ L 136-14 5 Not Available [facility] ([facility]) [address], [place], [address], 11/01/2024 15:54:32 11/02/19 25 11/01/2024 COMP METAB OLIC PANEL potassium 3.6 mmol/ L 3.6-5. 0 Not Available [facility] ([facility]) [address] , [place], [address], 11/01/2024 15:54:32 11/02/19 25 11/01/2024 COMP METAB OLIC PANEL chloride 103 mmol/ L 98-107 Not Available [facility] ([facility]) [address] , [place], [address], 11/01/2024 15:54:32 11/02/19 25 11/01/2024 COMP METAB OLIC PANEL carbon dioxide 27.8 mmol/ L 21.0-3 2.0 Not Available [facility] ([facility]) [address] , [place], [address], 11/01/2024 15:54:32 11/02/19 25 11/01/2024 COMP METAB OLIC PANEL anion gap 11.8 Not Available [facility] ([facility]) [address] , [place], [address], 11/01/2024 15:54:32 11/02/19 25 11/01/2024 COMP METAB OLIC PANEL glucose 112 mg/dL 70-120 Not Available [facility] ([facility]) [address] [place], [address], 11/01/2024 15:54:32 11/02/19 25 11/01/2024 COMP METAB OLIC PANEL BUN 9 mg/dL 7-18 Not Available [facility] ([facility]) [address] , [place], [address], 11/01/2024 15:54:32 11/02/19 25 11/01/2024 COMP METAB OLIC PANEL creatinine 1.1 mg/dL 0.6-1. 3 Not Available [facility] ([facility]) [address], [place], [address], 11/01/2024 15:54:32 11/02/19 25 11/01/2024 COMP METAB [...] albrecht ing kiney funct ion. Not Available [facility] ([facility]) [address] , [place], [address], 11/01/2024 15:54:32 11/02/19 25 11/01/2024 COMP METAB OLIC PANEL osmolality (calculated) 289 mOsm/ kg 275-30 1 OSMOL ALITY IS A CALCU LATIO N UTILI ZING THE SERUM /PLAS MA SODIU M, GLUCO SE AND UREA NITRO GEN (BUN) LEVEL S. FOR THE MOST ACCUR ATE RESUL T A MEASU RED SERUM OSMOL ALITY IS SUGGE STED. Not Available [facility] ([facility]) [address], [place], [address], 11/01/2024 15:54:32 11/02/19 25 11/01/2024 COMP METAB OLIC PANEL total protein 6.5 g/dL 6.4-8. 2 Not Available [facility] ([facility]) [address] , [place], [address], 11/01/2024 15:54:32 11/02/19 25 11/01/2024 COMP METAB OLIC PANEL albumin 2.2 g/dL 3.4-5. 0 low Not Available [facility] ([facility]) [address], [place], [address], 11/01/2024 15:54:32 11/02/19 25 11/01/2024 COMP METAB OLIC PANEL globulin 4.3 Not Available [facility] ([facility]) [address] , [place], [address], 11/01/2024 15:54:32 11/02/19 25 11/01/2024 COMP METAB OLIC PANEL alb/glob ratio 0.5 0.7-2 low Not Available [facility] ([facility]) [address] , [place], [address], 11/01/2024 15:54:32 11/02/19 25 11/01/2024 COMP METAB OLIC PANEL calcium 8.5 mg/dL 8.5-10 .5 Not Available [facility] ([facility]) [address], [place], [address], 11/01/2024 15:54:32 11/02/19 25 11/01/2024 COMP METAB OLIC PANEL bilirubin total 0.40 mg/dL 0.10-1 .00 Not Available [facility] ([facility]) [address], [place], [address], 11/01/2024 15:54:32 11/02/19 25 11/01/2024 COMP METAB OLIC PANEL AST (SGOT) 33 U/L 0-37 Not Available [facility] ([facility]) [address] , [place], [address], 11/01/2024 15:54:32 11/02/19 25 11/01/2024 COMP METAB OLIC PANEL ALT (SGPT) 11 U/L 0-65 Not Available [facility] ([facility]) [address], [place], [address], 11/01/2024 15:54:32 11/02/19 25 11/01/2024 COMP METAB OLIC PANEL alk phosphatase 327 U/L 46-116 high Not Available [facility] ([facility]) [address] , [place], [address], 11/01/2024 15:54:32 11/02/19 25 11/03/2024 CEA cea [...] of [facility] . Perfo rmed at: [place] [address] Lab Direc tor: Tate staton PhD, Phone : [phone] Not Available [facility] ([facility]) [address] [facility], [place], [address], 11/03/2024 13:11:48 12/01/19 25 11/30/2024 CBC AUTO W DIFF WBC 9.0 K/uL 4.0-10 .5 Not Available [facility] ([facility]) [address] [facility], [place], [address], 11/30/2024 13:41:32 12/01/19 25 11/30/2024 CBC AUTO W DIFF RBC 3.7 M/mm3 4.2-6. 4 low Not Available [facility] ([facility]) [address] [facility], [place], [address], 11/30/2024 13:41:32 12/01/19 25 11/30/2024 CBC AUTO W DIFF HGB 10.2 gm/dL 12.5-1 6.0 low Not Available [facility] ([facility]) [address], [place], [address], 11/30/2024 13:41:32 12/01/19 25 11/30/2024 CBC AUTO W DIFF HCT 32.3 % 37.0-4 7.0 low Not Available [facility] ([facility]) [address], [place], [address], 11/30/2024 13:41:32 12/01/19 25 11/30/2024 CBC AUTO W DIFF MCV 86.8 fL 78-100 Not Available [facility] ([facility]) [address], [place], [address], 11/30/2024 13:41:32 12/01/19 25 11/30/2024 CBC AUTO W DIFF MCH 27.4 pg 27-31 Not Available [facility] ([facility]) [address] , [place], [address], 11/30/2024 13:41:32 12/01/19 25 11/30/2024 CBC AUTO W DIFF MCHC 31.6 g/dL 32-36 low Not Available [facility] ([facility]) [address] , [place], [address], 11/30/2024 13:41:32 12/01/19 25 11/30/2024 CBC AUTO W DIFF RDW 14.4 % 11.5-1 4.0 high Not Available [facility] ([facility]) [address] , [place], [address], 11/30/2024 13:41:32 12/01/19 25 11/30/2024 CBC AUTO W DIFF platelet count 260 K/uL 150-45 0 Not Available [facility] ([facility]) [address] , [place], [address], 11/30/2024 13:41:32 12/01/19 25 11/30/2024 CBC AUTO W DIFF MPV 9.6 fL 6-9.5 high Not Available [facility] ([facility]) [address] [place], [address], 11/30/2024 13:41:32 12/01/19 25 11/30/2024 CBC AUTO W DIFF neutrophil% 72.3 % 43-65 high Not Available [facility] ([facility]) [address], [place], [address], 11/30/2024 13:41:32 12/01/19 25 11/30/2024 CBC AUTO W DIFF lymphocyte% 14.6 % 20.5-4 5.5 low Not Available [facility] ([facility]) [address] [place], [address], 11/30/2024 13:41:32 12/01/19 25 11/30/2024 CBC AUTO W DIFF monocyte% 8.1 % 5.5-11 .7 Not Available [facility] ([facility]) [address] [place], [address], 11/30/2024 13:41:32 12/01/19 25 11/30/2024 CBC AUTO W DIFF eosinophil% 3.6 % 0.9-2. 9 high Not Available [facility] ([facility]) [address] [place], [address], 11/30/2024 13:41:32 12/01/19 25 11/30/2024 CBC AUTO W DIFF basophil% 0.7 % 0.2-1. 0 Not Available [facility] ([facility]) [address] [place], [address], 11/30/2024 13:41:32 12/01/19 25 11/30/2024 CBC AUTO W DIFF immature granulocytes % 0.7 % 0.0-0. 8 Not Available [facility] ([facility]) [address] [place], [address], 11/30/2024 13:41:32 12/01/19 25 11/30/2024 CBC AUTO W DIFF nucleated red blood cells % 0.0 % Not Available [facility] ([facility]) [address], [place], [address], 11/30/2024 13:41:32 12/01/19 25 11/30/2024 CBC AUTO W DIFF neutrophil# 6.5 K/uL 2.2-4. 8 high Not Available [facility] ([facility]) [address], [place], [address], 11/30/2024 13:41:32 12/01/19 25 11/30/2024 CBC AUTO W DIFF lymphocyte# 1.3 cell/ mcL 1.3-2. 9 Not Available [facility] ([facility]) [address], [place], [address], 11/30/2024 13:41:32 12/01/19 25 11/30/2024 CBC AUTO W DIFF monocyte# 0.7 cell/ mcL 0.3-0. 8 Not Available [facility] ([facility]) [address], [place], [address], 11/30/2024 13:41:32 12/01/19 25 11/30/2024 CBC AUTO W DIFF eosinophil# 0.3 cell/ mcL 0-0.2 high Not Available [facility] ([facility]) [address], [place], [address], 11/30/2024 13:41:32 12/01/19 25 11/30/2024 CBC AUTO W DIFF basophil# 0.1 cell/ mcL 0.0-1. 0 Not Available [facility] ([facility]) [address] [place], [address], 11/30/2024 13:41:32 12/01/19 25 11/30/2024 CBC AUTO W DIFF immature gramulocytes # 0.06 K/uL Not Available [facility] ([facility]) [address], [place], [address], 11/30/2024 13:41:32 12/01/19 25 11/30/2024 CBC AUTO W DIFF nucleated red blood cells # 0.00 K/uL Not Available [facility] ([facility]) [address] , [place], [address], 11/30/2024 13:41:32 12/01/19 25 11/30/2024 CBC AUTO W DIFF manual differential NO Not Available [facility] ([facility]) [address], [place], [address], 11/30/2024 13:41:32 12/01/19 25 11/30/2024 COMP METAB OLIC PANEL sodium 129 mmol/ L 136-14 5 low Not Available [facility] ([facility]) [address] , [place], [address], 11/30/2024 13:45:48 12/01/19 25 11/30/2024 COMP METAB OLIC PANEL potassium 4.8 mmol/ L 3.6-5. 0 Not Available [facility] ([facility]) [address] , [place], [address], 11/30/2024 13:45:48 12/01/19 25 11/30/2024 COMP METAB OLIC PANEL chloride 93 mmol/ L 98-107 low Not Available [facility] ([facility]) [address] , [place], [address], 11/30/2024 13:45:48 12/01/19 25 11/30/2024 COMP METAB OLIC PANEL carbon dioxide 25.2 mmol/ L 21.0-3 2.0 Not Available [facility] ([facility]) [address] , [place], [address], 11/30/2024 13:45:48 12/01/19 25 11/30/2024 COMP METAB OLIC PANEL anion gap 15.6 Not Available [facility] ([facility]) [address], [place], [address], 11/30/2024 13:45:48 12/01/19 25 11/30/2024 COMP METAB OLIC PANEL glucose 110 mg/dL 70-120 Not Available [facility] ([facility]) [address], [place], [address], 11/30/2024 13:45:48 12/01/19 25 11/30/2024 COMP METAB OLIC PANEL BUN 38 mg/dL 7-18 high Not Available [facility] ([facility]) [address], [place], [address], 11/30/2024 13:45:48 12/01/19 25 11/30/2024 COMP METAB OLIC PANEL creatinine 2.6 mg/dL 0.6-1. 3 high Not Available [facility] ([facility]) [address] , [place], [address], 11/30/2024 13:45:48 12/01/19 25 11/30/2024 COMP METAB [...] albrecht ing kiney funct ion. Not Available [facility] ([facility]) [address] , [place], [address], 11/30/2024 13:45:48 12/01/19 25 11/30/2024 COMP METAB OLIC PANEL osmolality (calculated) 279 mOsm/ kg 275-30 1 OSMOL ALITY IS A CALCU LATIO N UTILI ZING THE SERUM /PLAS MA SODIU M, GLUCO SE AND UREA NITRO GEN (BUN) LEVEL S. FOR THE MOST ACCUR ATE RESUL T A MEASU RED SERUM OSMOL ALITY IS H[place]. Not Available [facility] ([facility]) [address], [place], [address], 11/30/2024 13:45:48 12/01/19 25 11/30/2024 COMP METAB OLIC PANEL total protein 8.4 g/dL 6.4-8. 2 high Not Available [facility] ([facility]) [address], [place], [address], 11/30/2024 13:45:48 12/01/19 25 11/30/2024 COMP METAB OLIC PANEL albumin 2.6 g/dL 3.4-5. 0 low Not Available [facility] ([facility]) [address], [place], [address], 11/30/2024 13:45:48 12/01/19 25 11/30/2024 COMP METAB OLIC PANEL globulin 5.8 Not Available [facility] ([facility]) [address] [facility], [place], [address], 11/30/2024 13:45:48 12/01/19 25 11/30/2024 COMP METAB OLIC PANEL alb/glob ratio 0.4 0.7-2 low Not Available [facility] ([facility]) [address], [place], [address], 11/30/2024 13:45:48 12/01/19 25 11/30/2024 COMP METAB OLIC PANEL calcium 9.5 mg/dL 8.5-10 .5 Not Available [facility] ([facility]) [address] [facility], [place], [address], 11/30/2024 13:45:48 12/01/19 25 11/30/2024 COMP METAB OLIC PANEL bilirubin total 0.80 mg/dL 0.10-1 .00 Not Available [facility] ([facility]) [address] [facility], [place], [address], 11/30/2024 13:45:48 12/01/19 25 11/30/2024 COMP METAB OLIC PANEL AST (SGOT) 111 U/L 0-37 high Not Available [facility] ([facility]) [address] [facility], [place], [address], 11/30/2024 13:45:48 12/01/19 25 11/30/2024 COMP METAB OLIC PANEL ALT (SGPT) 20 U/L 0-65 Not Available [facility] ([facility]) [address] [facility], [place], [address], 11/30/2024 13:45:48 12/01/19 25 11/30/2024 COMP METAB OLIC PANEL alk phosphatase 490 U/L 46-116 high Not Available [facility] ([facility]) [address] [facility], [place], [address], 11/30/2024 13:45:48 12/01/19 25 12/01/2024 CEA cea [...] graves . Perfo rmed at: - [facility] [address] [id number] [facility] Direc tor: Tate staton PhD, Phone : [phone] Not Available [facility] ([facility]) [address] [facility], [place], [address], 12/01/2024 11:12:48 Result Notes None recorded. Problems Name Problem SNOMED Code Status Onset Date Resolution Date Notes Provider Name and Address Organization Details Recorded Time Metastatic malignant neoplasm to liver 62769455 Active [address], [place], [address] , [facility] - [facility] & [place] 3 14:27:25 Mass of colon 369353530 Active [address], [place], [address] , [place] - [facility] & [place] 3 14:27:30 Anemia 629059354 Active [address], [facility] [address] , [facility] - [facility] & [place] 3 14:27:36 Nausea and vomiting 47917645 Active [address], [place], [address] , [place] - [facility] & [place] 3 14:27:46 Unintentional weight loss 915390598 Active [address], [facility] [address] [facility] [place] - [facility] & [place] 3 16:13:07 Night sweats 82463379 Active [address], [place], [address] [facility] [place] - [facility] & [place] 3 16:13:12 Headache 28066635 Active 2024 Christine yusuf [place] - [facility] & [place] 5 10:27:12 Problem Notes Documentation Provider Name and Address Organization Details Recorded Time Oncology Patient Navigator : ONN met with pt accompanied by daughter at [facility] with medical oncology. Pt is slurring her speech, seems forgetful, and nodding off during conversations. Pt daughter is a little concerned about pt but states overall she is doing well but has declined since last week. Pt denies any questions/concerns at this time. ONN encouraged pt to reach out may any needs/cooncerns arise. Christine yusuf, [facility] & [place] 11/30/2024 15:38:04 Procedures Surgical History Date Name Laterality Status Provider Name and Address Organization Details Recorded Time 04/29/20 23 Venipuncture completed Hanna Snider PA-C [address] [facility], [place], [address], [facility] & [place] 04/27/2023 15:05:29 04/15/20 23 Venipuncture completed Stephanie Maravilla [facility] & [place] 04/15/2023 15:24:55 hysterectomy completed Laurel Samuels [facility] & [place] 03/11/2023 15:30:22 [facility] [place] 03/11/[facility]23 15:30:36 excision of colon completed Loree Tadeo [facility] & [place] 04/21/2023 11:32:07 Imaging Results None recorded. Procedure Notes None recorded. Medical Equipment None Reported. Allergies Allergen ID Allergen Name Allergen Category Reaction Reaction Severity Criticality Documentation Date Start Date Code Code System Note Provider Name and Address Organization Details Recorded Time 96768 tetracycl ine medicatio n hives Not available high 02/19/2023 23166 RxNorm [facility] [place] 14:03:33 Medications Name Sig Start Date Stop [...] Updated DateTime 5 162.56 cm 33.8 kg/m2 53269.7 g 96.8 [degF] 99 % 99 % 65 /min 93/62 mm[Hg] Stephanie ELIAS [facility] & [place] 11:12:52 Social History Question Answer Notes LastModified by Organizat ion Details LastModified Time Tobacco Smoking Status Never Smoker CURT Johnston [facility] & [place] 02/19/2023 14:02:59 What Is Your Level Of Caffeine Consumption? None [email or web address] Information not available 02/19/2023 What Was The Date Of Your Most Recent Tobacco Screening? 11/23/2023 [email or web address] Information not available 11/23/2023 Has Tobacco Cessation Counseling Been Provided? No [email or web address] Information not available 07/13/2023 Sex: Unknown Functional Status Question Answer Note LastModified by Organizat ion Details LastModified Time Do you use any illicit or recreational drugs? No Information not available 02/19/2023 Do you or have you ever used any other forms of tobacco or nicotine? No [email or web address] Information not available 02/19/2023 What is your level of alcohol consumption? None [email or web address] Information not available 02/19/2023 Mental Status None recorded. Family History Nothing Reported. Medical History No medical history recorded. Gynecological HistoryNo gynecological history recorded. Obstetrics History GPAL:G 0 P 0 0 0 0 Immunizations Vaccine Type Date Status Note Provider Nam e and Address Organization Details Recorded Time pneumococcal polysaccharide PPV23 7 completed Stephanie Maravilla [place], [place] - [facility] & [place] 12/21/2023 09:56:34 Past Encounters Encounter ID Performer Location Encounter Start Date Encounter Closed Date Diagnosis/Indication Diagnosis SNOMED-CT Code Diagnosis ICD10 Code Diagnosis Note [id number] Hanna Snider PA-C [facility] [address] [facility] [address] [place] [address] 11/01/2024 13:00:10 11/01/2024 13:35:08 Antineoplastic chemotherapy regimen 790552074 Z51.11 Week 1 5FU Leucovorin Vectibix on [...] 25, 2024. 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 MCV 67.9. Platelet count 734392. Normal cell differenti al. Low serum folate [...] study published in September 2022 in the [place] [facility] of combined Avastin therapy with [...] malignancy . Metastatic malignant neoplasm to liver 73001336 C78.7 CT scan of the abdomen and [...] any treatment for her malignancy . Nausea 639415315 R11.0 As needed Zofran and Phenergan prescribed [...] ons. Pain due t o neoplastic disease 6352310350 9102 G89.3 Abdominal pain has improved and pain is controlled with current pain medication s. Anemia 328612548 D64.9 Right-side d colon mass concerning for malignancy . Will assess for any signs of iron deficiency . Hemoglobin previously 8.0. Concern for blood loss from colon mass. Patient reports dark stools. Labs on August 10, 2024 with hemoglobin slightly low at 11.9. She is receiving infusional iron as needed. Adopted 960450071 Z62.89 8 Patient is adopted and discussed hereditary gene panel. Patient does have family history of her son having bladder cancer. [facility] hereditary panel sent Hypokalemia 52105753 E87 .6 Currently taking for potassium 20 mEq daily. Will follow up labs. 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 [...] reports depression has improved. Atopic conjunctivitis 23 4671921 H10.12 Conjunctiv itis due to Vectibix. This has improved. Iron defic iency anemia 26416606 D50.9 Receiving infusional iron as needed. Will continue to monitor. Insomnia 079678937 G47.0 0 Patient has had difficulty sleeping for most of her life. She has tried multiple medication s without relief. She is tried Mirtazapin e and lorazepam without improvemen t of insomnia. Discussed trying trazodone instead. Restless legs 15956706 G 25.81 Patient taking Requip for restless legs. Generalized rash 2750692 06 R21 Rash due to Vectibix. This has improved. Atrial fibrillation 4943 6004 I48.91 Patient has been diagnosed with congestive heart failure and atrial fibrillati on. She has been started on Coumadin. She is following with the Coumadin clinic at [facility]. Congestive heart failure 73510636 I50.9 Patient has been diagnosed with congestive heart failure. She has started lasix and is following with a cardiologi Cachexia 291104653 R64 Patient has had decreased appetite and weight loss. She is drinking nutritiona l supplement s. Discussed appetite stimulant. Patient previously refused. She has started on Megace. She does not like the taste of Megace. Discussed Megace tablets instead of liquid but patient declines at this time. Will continue to monitor History of deep vein thrombosis 182761305 Z86.718 Patient developed right lower extremity pain [...] repeat venous duplex. Drug therapy finding 309 265348 Z79.01 She continues on Coumadin due to a fib. She is following with the Coumadin clinic at [facility]. Candidiasis of skin 4988 3006 B37.2 Patient has intermitte nt rash consistent with candidiasi s under her breasts folds. Will send prescripti on for nystain powder to use as needed. [id number] Hanna Snider PA-C [facility] [address] [facility] [address] [place] [address] 11/30/2024 10:57:07 11/30/2024 11:54:59 Antineoplastic chemotherapy regimen 115812482 Z51.11 Week 1 5FU Leucovorin Vectibix on [...] 25, 2024. Malignant tumor of ascending colon 328297566 C18.2 CT scan of the abdomen and [...] 8.2 hematocrit 29.0. MCV 67.9. Platelet count 323996. Normal cell differenti al. Low serum folate [...] study published in September 2022 in the [place] [facility] of combined Avastin therapy with [...] malignancy . Metastatic malignant neoplasm to liver 84969927 C78.7 CT scan of the abdomen and [...] any treatment for her malignancy . Nausea 025732377 R11.0 As needed Zofran and Phenergan prescribed . Discussed trying scopolamin e patches but her insurance wouldn't cover. Discussed starting Ativan and Reglan is needed for nausea and vomiting. Pain due t o neoplastic disease 1920738480 9102 G89.3 Abdominal pain has improved and pain is controlled with current pain medication s. Anemia 679798228 D64.9 Right-side d colon mass concerning for malignancy . Will assess for any signs of iron deficiency . Hemoglobin previously 8.0. Concern for blood loss from colon mass. Patient reports dark stools. Labs on August 10, 2024 with hemoglobin slightly low at 11.9. She is receiving infusional iron as needed. Adopted 949421376 Z62.89 8 Patient is adopted and discussed hereditary gene panel. Patient does have family history of her son having bladder cancer. [facility] hereditary panel sent Hypokalemia 74508394 E87 .6 Currently taking for potassium 20 mEq daily. Will follow up labs. 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 [...] reports depression has improved. Atopic conjunctivitis 23 2292147 H10.12 Conjunctiv itis due to Vectibix. This has improved. Iron defic iency anemia 50264764 D50.9 Receiving infusional iron as needed. Will continue to monitor. Insomnia 740665486 G47.0 0 Patient has had difficulty sleeping for most of her life. She has tried multiple medication s without relief. She is tried Mirtazapin e and lorazepam without improvemen t of insomnia. Discussed trying trazodone instead. Restless legs 93748888 G 25.81 Patient taking Requip for restless legs. Generalized rash 9139420 06 R21 Rash due to Vectibix. This has improved. Atrial fibrillation 4943 6004 I48.91 Patient has been diagnosed with congestive heart failure and atrial fibrillati on. She has been started on Coumadin. She is following with the Coumadin clinic at [facility]. Congestive heart failure 96891868 I50.9 Patient has been diagnosed with congestive heart failure. She has started lasix and is following with a cardiologi [facility] [address] 837479580 R64 Patient has had decreased appetite and weight loss. She is drinking nutritiona l supplement s. Discussed appetite stimulant. Patient previously refused. She has started on Megace. She does not like the taste of Megace. Discussed Megace tablets instead of liquid but patient declines at this time. Will continue to monitor History of deep vein thrombosis 735450809 Z86.718 Patient developed right lower extremity pain [...] repeat venous duplex. Drug therapy finding 309 823053 Z79.01 She continues on Coumadin due to a fib. She is following with the Coumadin clinic at [facility]. Candidiasis of skin 4988 3006 B37.2 Patient has intermitte nt rash consistent with candidiasi s under her breasts folds. She has nystain powder to use as needed. Dehydration 43032395 E86 .0 Patient returns on November 30, [...] Name 11/30/2024 1 [place] Vicky Roblero [id number] Vicky Roblero 11/30/2024 2 [employer] (MEDICARE SUPPLEMENT) Vicky Roblero [id number] Vicyk Roblero Notes Date Note Type Note Provider [...] 8.2 hematocrit 29.0. MCV 67.9. Platelet count 192033. Normal cell differential. Low serum folate of [...] with metastatic colorectal cancer. Discussed chemotherapy with [place] based regimen with 5FU Leucovorin if [...] with the Coumadin clinic at [facility]. She is scheduled for cardiac MRI. Patient [...] study published in September 2022 in the [place] [facility] of combined Avastin therapy with [...] follow up labs today. Hanna Snider PA-C [address], [place], [address], [facility] [place] & [place] 11/30/2024 13:22:42 OBGyn Episode No OBEpisode recorded.
--- OUTSIDE RECORDS SUMMARY | 2024-12-21 13:19 | XMS_ITS | Encounter Summary ---
Author Organization [place] [address] Care Team Providers Care Nuclear Powerplant Mechanic Name Role Phone Luis Villasenor MD Unavailable [phone] Luis Villasenor MD Primary Care Provider [phone] Encounter Details Date Type Department Care Team (Late Contact Info) Description 12/19/2024 Results Follow-Up SEP P [address] [place] [address] Charlotte Mccann RN [facility] RETINOPATHY EXAM Social History Tobacco Use Types Packs/Day Years [...] in doing things 0 12/19/2024 9:07 AM BASILT Pau Gray RMA Feeling down, depressed, or hopeless 0 12/19/2024 9:07 AM BASILT Pau Gray RMA PHQ-2 Total Score 0 12/19/2024 9:07 AM Pau Luther RMA * PHQ-2 Total Score Answer Date of Assessment Author 0 12/19/2024 9:07 AM Pau Liang RMA documented as of this encounter Mental Status * Because of a physical, mental or emotional condition, does this person have serious difficulty concentrating, remembering or making decisions? Answer Entry Date Author No 02/09/2020 8:59 AM Nghia Aguirre CMA documented in this encounter Progress Notes * Charlotte Mccann RN - 12/19/2024 10:06 AM EDT Laboratory results received, patient notified by: Contacted by for[MD] message documented in this encounter Plan of Treatment [...] documented as of this encounter Care Teams Nuclear Powerplant Mechanic Relationship Specialty Start Date End Date Luis Villasenor MD [address] [place] [id number] PCP - OBGYN 01/09/10 Luis Villasenor MD [address] [place] [id number] PCP - General 01/09/10 documented as of this encounter
--- OUTSIDE RECORDS SUMMARY | 2024-12-21 13:19 | XMS_ITS | Clinical Summary ---
Author Organization [facility] Address [address] [place] [address] Phone Care Team Providers Care Dam Attendant Name Role Phone Luis Villasenor MD Unavailable [phone] Luis Villasenor MD Primary Care Provider Allergies [...] daily. 90 Tablet 3 11/05/19 25 Active warfarin (COUMADIN) 5 mg Oral TabletIndications:p revent thromboembolism in chronic atrial fibrillation Thursday and Thursday Indications: treatment to prevent blood clots in chronic atrial fibrillation 11/15/19 25 Active Additional Information Patient not taking.Reported on 12/19/2024 warfarin (COUMADIN) 2.5 mg Oral TabletIndications:H istory of DVT (deep vein thrombosis),Paroxys mal atrial fibrillation (HCC) Tue, Wed, Thurs, Sat and Sun 11/15/19 25 Active Additional Information Patient not taking.Reported on 12/19/2024 HYDROmorphone (DILAUDID) 2 mg Oral Tablet Take 2 mg by mouth every 4 hours as needed. Active HYDROcodone-acetami nophen (NORCO) 10-325 mg Oral Tablet Take 1 Tablet by mouth every 6 hours as needed. Active cefdinir (OMNICEF) 300 mg Oral Capsule Take 300 mg by mouth every 12 hours. Active metoprolol succinate (TOPROL-XL) 50 mg Oral Tablet Sustained Release 24 hr Take 50 mg by mouth nightly. Active NYSTOP Top Powder APPLY TOPICALLY TO THE AFFECTED AEA(S) 2 TIMES A DAY NEEDED 12/01/19 Active rOPINIRole (REQUIP) 0.5 mg Oral Tablet Take 0.5 mg by mouth 3 times daily. Active JANTOVEN 2 mg Oral Tablet Take 2 mg by mouth daily. 12/06/19 25 Active Menthol-Zinc Oxide (CALMOSEPTINE) 0.44-20.6 % Top OintmentIndications :Skin breakdown Apply 1 mL topically 6 times daily. 113 g 2 12/20/19 25 Active ondansetron (ZOFRAN) 4 mg Oral TabletIndications:M alignant tumor of ascending colon (HCC),Hyponatremia Take 2 Tablets by mouth every 6 hours as needed for Nausea. 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 04/2023, R hemicolectomy and anastomosis, pathology of invasive moderately differentiated adenocarcinoma. Metastatic adenocarcinoma in 2/10 lymph nodes. Wedge resection of the liver with metastatic adenocarcinoma consistent with colon primary. Discontinued treatment early 2024 per patient decision Managed by [facility]cology [facility] H[facility]ology Assessment & Plan (10/02/2024 10:12 PM EDT): - has active disease - managed by Oncology -has stopped treatment 07/2024 Assessment & Plan (06/14/2024 9:41 PM EST): - has active disease - currently undergoing chemotherapy / immunotherapy - managed by Oncology, [facility] Oncology [facility] Hematology Malignant tumor of ascending colon 06/14/2024 Overview (06/14/2024): CT scan 01/2023 with multiple masses of liver and ascending colon thickening. 04/2023, R hemicolectomy and anastomosis, pathology of invasive moderately differentiated adenocarcinoma. Metastatic adenocarcinoma in 2/10 lymph nodes. Wedge resection of the liver with metastatic adenocarcinoma consistent with colon primary. Continues with chemotherapy [id number]. 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 Youngblood, cardiology. Taking 5mg M// and 2.5mg other days Paroxysmal atrial fibrillation 06/14/2024 Overview (06/14/2024): Dr. Youngblood, cardiology, [facility] Assessment & Plan (10/02/2024 10:12 [...] new coumadin start today Medication Management: - [id number] score considered in medication management decisions at [...] pulmonary embolism 03/30/2015 Overview (12/04/2016): Following hysterectomy 1991 Idiopathic chronic gout of multiple sites withou t tophus 03/30/2015 Overview (01/28/2019): Not on preventive med due to intolerance. 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 Decrease starches like bread [...] Encounters Date Type Department Care Team Description 12/19/2024 9:00 AM EDT [place] [facility] [place] [address] [place] [phone] Amarilis Nolan APRN Paroxysmal atrial fibrillation (HCC) (Primary Dx); Malignant tumor of ascending colon (HCC); Hyponatremia; Type 2 diabetes mellitus without complication, unspecified whether longterm insulin use (HCC); Skin breakdown 12/19/2024 Results Follow-Up [facility] [address] [place] [address] Charlotte Mccann, [facility] DIABETIC RETINOPATHY EXAM 12/14/2024 Telephone [facility]P [place] [place] [address] Luis Villasenor MD Orders (SN) 12/05/2024 Orders Only SEP [address] [place] [phone] Pau Gray, MIKALA 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 due to chronic blood loss 12/01/[address] [place] [phone] Luis Villasenor MD Follow Up (Need diagnosis code on infusion order - ok to handwrite on order - please fax to [phone]) 11/30/2024 Orders Only [address] [place] [phone] Pau Gray, RMA 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 due to chronic blood loss 11/28/2024 Orders Only [address] [place] [address] Amarilis Nolan, TABLET COATER 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 due to chronic blood loss (Primary Dx) 11/25/[address] [place] [phone] Amarilis Nolan, TABLET COATER Orders 11/14/2024 9:00 AM EDT Office Visit [address] [place] [phone] Amarilis Nolan, TABLET COATER 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) (Primary Dx); History of DVT (deep vein thrombosis); Paroxysmal atrial fibrillation (HCC); Cobalamin deficiency; Flank pain; Dehydration; Blood loss 11/11/2024 Orders Only [address] [place] [phone] Amarilis Nolan, TABLET COATER Flank pain (Primary Dx); Blood loss; Dehydration 11/04/2024 11:15 AM EDT Office Visit [address] [place] [phone] Amarilis Nolan, TABLET COATER Diverticulitis of large intestine without perforation or abscess without bleeding (Primary Dx); Peripheral edema; Malignant tumor of ascending colon (HCC); 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 ///) 10/11/[address] [place] [phone] Luis Villasenor MD Other (FYI- pt is wanting palliative care, home health asking if pcp would like to do this. 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); USP (current) use of anticoagulants 09/22/[address] [place] [phone] Luis Villasenor MD Orders (personal touch home care) from Last 3 Months Immunizations Immunization Administration Dates Next Due Pneumococcal Conjugate Vaccine 13 Valent 015 Pneumococcal Polysaccharide 23 Valent 12/04/2016 Tdap 01/20/2011 01/20/2021 Surgical History Surgery Date Site/Laterality Comments HYSTERECTOMY secondary to uterine fibroids TONGUE SURGERY benign tumor removed CARDIAC CATHETERIZATION CATARACT REMOVAL 07/09/2013 Left LEFT EYE CATARACT EXTRACTION WITH PHACOEMULSIFICATION AND INTRAOCULAR LENS; Surgeon: Keith Lynn MD; Location: [facility]; Service: Ophthalmology Medical devices from this surgery are in the Medical Devices section. CATARACT REMOVAL 08/03/2013 Eye/Right RIGHT EYE CATARACT EXTRACTION WITH PHACOEMULSIFICATION AND INTRAOCULAR LENS ; Surgeon: Keith Lynn MD; Location: [facility]; Service: Ophthalmology Medical devices from this surgery are in the Medical Devices section. Medical History Medical History Date Comments Deep vein thrombosis (HCC) in 19 89 related at the time of hysterectomy Hypertension [...] 20 12/19/2024 9:13 AM EDT Oxygen Saturation 99% 11/14/2024 9:10 AM EDT Inhaled Oxygen Concentration - - Weight 92 kg (202 lb 12.8 oz) 12/19/2024 9:13 AM EDT Height 162.6 cm (5' 4 ) 12/19/2024 9:13 AM EDT Body Mass Index 34.81 12/19/2024 9:13 AM EDT Plan of Treatment Health Maintenance Due Date Last Done Comments Wellness Exam Medicare 09/22/1948 COVID-19 Vaccine (#1) 09/22/1952 Kidney Health: uACR 09/22/1957 Zoster (1 of 2) 09/22/1966 Bone Density Screening 09/22/2012 DTaP/TDaP/Td (2 - Td or Tdap) 01/20/2021 01/20/2011 Lipids 02/08/2021 02/09/2020, 08/2018, 09/07/2017, Additional history exists RSV or 60+ (1 - 1-dose 75+ series) 09/22/2022 Hemoglobin A1c 03/10/2023 09/08/2022, 01/30, 02/02/2019, Additional history exists Influenza Vaccine (#1) 2025 07/12/2015 (Declin ed) Kidney Health: eGFR 11/14/2025 11/14/2024, 10/26/2024, 09/01/2022, Additional history exists Diabetic Eye Exam 12/19/2026 12/19/2024 Hepatitis C Screening Completed 12/04/2016 Pneumococcal Vaccine [...] [place] [facility] Medical Devices Implanted Type Area Insulation Board Coater Operator Device Identifier Shelf Expiration Date Model / Serial / Lot Lens Intraocular 23.0 Diopter Acrysof Iq 13.0mm Length 6.0mm - [id number] Implanted:Qty: 1 on 07/09/2013 by Keith Lynn MD at [facility] Left: Eye [facility]:SURG 01/30/2018 [id number]. [id number] / [id number] / Lens Intraocular 23.5 Diopter Acrysof Iq 13.0mm Length 6.0mm - [id number] Implanted:Qty: 1 on 08/03/2013 by Keith Lynn MD at [facility] Right: Eye [facility]:SURG 03/01/2018 [id number]. [id number] / [id number] / Procedures Procedure Name Priority Date/Time Associated Diagnosis Comments IRIS DIABETIC RETINOPATHY EXAM Routine 12/19/2024 9:25 AM EDT Type 2 diabetes mellitus without complication, unspecified whether longterm insulin use (HCC) FERRITIN Routine 11/14/2024 10:07 AM EDT Malignant [...] Recently Relevant to Health Maintenance Results * IRIS DIABETIC RETINOPATHY EXAM (12/19/2024 9:25 AM EDT) [facility] Retinopathy Exam Severity NORMAL [facility] Right Diabetic Retinopathy None [facility] Right Macular Edema None [facility] Right Other Retina None SE LAB Right Eye Image Quality Gradable Image [facility] Left Diabetic Retinopathy None [facility] Left Macular Edema None [facility] Left Other Retina None [facility] Left Eye Image Quality Gradable Image [facility] 12/19/2024 9:25 AM EDT 12/19/2024 9:25 AM EDT Impressions SE LAB - 12/19/2024 9:31 AM EDT Retinal Study Result for jaylon JEFFERS 79 y/o, F (: 1945, ) presented to [facility] on 12-19-2024 for a retinal imaging [...] signed by John Hylton MD, , Taxonomy: [id number] on 12-19-2024 13:31 [facility]. NOTE: Any pathology noted on this diabetic retinal evaluation should be confirmed by an appropriate ophthalmic examination. Amarilis Nolan APRN OPHTHALMOLOGY SERVICES OR DERABLES Final Result Performing Organization Address [facility] de Phone Number [facility] [address] [place] [address] * (ABNORMAL) IRON+TIBC (11/14/2024 10:07 AM EDT) [facility] Iron 26(L) 30 - 160 mcg/dL 11/14/2024 4:07 PM EDT [facility] Transferrin 153(L) 200 - 360 mg/dL 11/14/2024 4:07 PM EDT [facility] Transferrin Saturation 12(L) 20 - 50 % 11/14/2024 4:07 PM EDT [facility] TIBC 214(L) 250 - 400 mcg/dL 11/14/2024 4:07 PM EDT [facility] Blood VENOUS BLOOD / Unknown Venipuncture / Unknown 11/14/2024 10:07 AM EDT 11/14/2024 10:07 AM EDT Amarilis Nolan APRN CHEMISTRY ORDERABLES Kell l Result Performing Organization Address [facility] Co de Phone Number [facility], [address], [address] [place] [phone] * VITAMIN B12/ FOLIC ACID (11/14/2024 10:07 AM EDT) [facility] Vitamin B12 801 232 - 1,245 pg/mL 11/14/2024 4:02 PM EDT [facility] Folate 9.89 >=4.80 ng/mL 11/14/2024 4:02 PM EDT [facility] Blood VENOUS BLOOD / Unknown Venipuncture / Unknown 11/14/2024 10:07 AM EDT 11/14/2024 10:07 AM EDT Narrative [facility] - 11/14/2024 4:02 PM EDT Ingestion of rocio doses of biotin (>5 mg/day) taken within 8 hours of drawing blood sample can interfere with this immunoassay test. us Amarilis Nolan APRN CHEMISTRY ORDERABLES Kell orlando Result [facility] [address] [facility] , [place] [address] * (ABNORMAL) CBC WITH DIFF (11/14/2024 10:07 AM EDT) Pathologist [facility] WBC 10.0 3.7 - 10.3 x10(3)/mcL 11/14/2024 3:44 PM EDT [facility] RBC 3.50(L) 3.90 - 5.20 x10(6)/mcL 11/14/2024 3:44 PM EDT [facility] Hgb 9.9(L) 11.2 - 15.7 [...] [facility] Platelet 375(H) 155 - 369 x10(3)/[facility] 11/14/2024 3:44 PM EDT [facility]REFERR[facility] [...] PM EDT [facility] [place] Percent 8.3 % 11/14/2024 3:44 PM EDT [facility] Eos Percent 3.5 % 11/14/2024 3:44 PM EDT [facility] Baso Percent 0.6 % 11/14/2024 3:44 PM EDT [facility] Neut # 7.7(H) 1.6 - 6.1 x10(3)/[facility] 11/14/2024 3:44 PM EDT [facility] Comment:Neutrophils equals s egs plus bands IMMGRAN# 0.1 0.0 - 0.1 x10(3)/[facility] 11/14/2024 3:44 PM EDT [facility] Comment:Automated count of m etamyelocytes, myelocytes and promyelocytes. An absolute IG <0.1 is reported as 0.0. Lymph # 1.0(L) 1.2 - 3.9 x10(3)/[facility] 11/14/2024 3:44 PM EDT [facility] [place] # 0.8 0.3 - 0.9 x10(3)/[facility] 11/14/2024 3:44 PM EDT [facility] Eos# 0.4 0.0 - 0.5 x10(3)/[facility] 11/14/2024 3:44 PM EDT [facility] Baso # 0.1 0.0 - 0.1 x10(3)/[facility] 11/14/2024 3:44 PM EDT [facility] Blood VENOUS BLOOD / Unknown Venipuncture / Unknown 11/14/2024 10:07 AM EDT 11/14/2024 10:07 AM EDT Amarilis Nolan APRN HEMATOLOGY ORDERABLES Fin al Result Performing Organization Address [facility] de Phone Number [facility] [address] , [address] [place] [phone] * (ABNORMAL) FERRITIN (11/14/2024 10:07 AM EDT) Ferritin 728(H) 30 - 150 ng/mL 11/14/2024 4:07 PM EDT [facility] Comment:The lower threshold of 30 is not [...] AM EDT 11/14/2024 10:07 AM EDT Narrative [facility] - 11/14/2024 4:07 PM EDT Ingestion of rocio doses of biotin (>5 mg/day) taken within 8 hours of drawing blood sample can interfere with this immunoassay test. Amarilis Nolan APRN CHEMISTRY ORDERABLES Kell l Result Performing Organization Address [facility] Co de Phone Number [facility] [address] , [place] [address] * (ABNORMAL) COMPREHENSIVE METABOLIC PANEL (11/14/2024 10:07 AM EDT) Only the most recent of2 resultswithin the time period is included. Sodium 133(L) 136 - 145 mmol/L 11/14/2024 4:07 PM EDT [facility] Potassium 4.5 3.5 - 5.0 mmol/L 11/14/2024 4:07 PM EDT [facility] Chloride 94(L) 98 - 107 mmol/L 11/14/2024 4:07 PM EDT [facility] Total CO2 29 22 - 29 mmol/L 11/14/2024 4:07 PM EDT [facility] Anion Gap 10 7 - 16 mmol/L 11/14/2024 4:07 PM EDT [facility] Calcium 9.2 8.8 - 10.4 mg/dL 11/14/2024 4:07 PM EDT [facility] Glucose Lvl 122(H) 70 - 99 mg/dL 11/14/2024 4:07 PM EDT [facility] BUN 15 8 - 23 mg/dL 11/14/2024 4:07 PM EDT [facility] Creatinine 1.38(H) 0.51 - 1.30 mg/dL 11/14/2024 4:07 PM EDT [facility] Albumin 3.4 3.2 - 4.6 gm/dL 11/14/2024 4:07 PM EDT [facility] Total Protein 7.8 6.4 - 8.3 gm/dL 11/14/2024 4:07 PM EDT [facility] Bili Total 0.6 0.2 - 1.3 mg/dL 11/14/2024 4:07 PM EDT [facility] ALT <5 <=41 U/L 11/14/2024 4:07 PM EDT [facility] AST 23 <=40 U/L 11/14/2024 4:07 PM EDT [facility] Alk Phos 465(H) 36 - 123 U/L 11/14/2024 4:07 PM EDT [facility] eGFR (CKD-EPIcr 2020) 39(L) >=60 mL/min/1.7 3 m2 11/14/2024 4:07 PM EDT [facility] Comment:Estimated GFR was ca lculated using the CKD-EPIcr (2020) equation refit without race. The equation is recommended by the National Kidney Foundation - [place] [employer] of Nephrology Task Force. Blood VENOUS BLOOD / Unknown Venipuncture / Unknown 11/14/2024 10:07 AM EDT 11/14/2024 10:07 AM EDT us Amarilis Nolan APRN CHEMISTRY ORDERABLES Kell l Result Performing Organization Address [facility] Co de Phone Number [facility] [address] , [place] [address] * URINE CULTURE (NO STAIN) (10/26/2024 11:17 AM EDT) Culture Multiple bacterial species isolated from urine consistent with urogenital commensal organisms. 10/27/2024 10:23 PM EDT [facility] Urine STRUCTURE OF URINARY TRACT PROPER / Unknown 10/26/2024 11:17 AM EDT 10/26/2024 11:17 AM EDT Amarilis Nolan APRN MICROBIOLOGY - GENERAL OR DERABLES Final Result Performing Organization Address [facility] de Phone Number [facility] [address] , [place] [address] * (ABNORMAL) SEP URINALYSIS POC (10/26/2024 11:14 AM EDT) UA Color POC Yellow Color 10/26/2024 11:17 AM EDT [facility]P [place] UA Appear POC Clear Clear 10/26/2024 11:17 AM EDT [facility] [place] UA Gluc POC Negative Negative mg/dL 10/26/2024 11:17 AM EDT [facility]P [place] UA Bili POC Negative Negative 10/26/2024 11:17 AM EDT SEP [place] UA Ketones POC Negative Negative mg/dL 10/26/2024 11:17 AM EDT [facility]P [place] UA SG POC 1.015 1.001 - 1.035 no units 10/26/2024 11:17 AM EDT [facility]P [place] UA Blood POC Trace-Intact (A) Negative 10/26/2024 11:17 AM EDT SEP [place] UA pH POC 5.5 5.0 - 8.0 pH 10/26/2024 11:17 AM EDT [place]P [place] UA Protein POC Negative Negative mg/dL 10/26/2024 11:17 AM EDT TODD [place] UA Urobilinogen POC 0.2 0.2, 1.0 10/26/2024 11:17 AM EDT [place]D [place] [facility]A Nitrite POC Negative Negative 10/26/2024 11:17 AM EDT [place] [place] [facility]A Leuk Est POC Negative Negative 11:17 AM EDT [place] Urine STRUCTURE OF URINARY TRACT PROPER / Unknown 10/26/2024 11:14 AM EDT 10/26/2024 11:17 AM EDT Lab Test POINT OF CARE TEST ORDERABLES Fi nal Result Performing Organization Address City/[facility]/ZIP Co de Phone Number [place] [address] [address] * (ABNORMAL) HEMOGLOBIN A1C (09/08/2022 2:38 PM EDT) Hgb A1C 7.3(H) 4.2 - 5.6 % 09/08/2022 8:16 PM EDT [facility] Est. Avg Glucose 163 mg/dL 09/08/2022 8:16 PM EDT [facility] Blood VENOUS BLOOD / Unknown Venipuncture / Unknown 09/08/2022 2:38 PM EDT 09/08/2022 2:38 PM EDT Narrative [facility] - 09/08/2022 8:16 PM EDT REFERENCE RANGE: Normal: 4.0-5.6% Pre-diabetes: 5.7-6.4% Provisional diagnosis of diabetes: >6.4% Hgb F>10% and anything which shortens red cell survival, such as hemolytic anemia, or unstable hemoglobin variants such as HbSS, HbSC, or HbCC, will lower the HbA1c value associated with a given level of glycemic control. Luis Villasenor MD CHEMISTRY ORDERABLES Final Result [facility] [address] [facility] , [place] [address] * LIPID PANEL REFLEX (02/09/2020 9:38 AM EDT) Cholesterol 157 <200 mg/dL 02/09/2020 4:17 PM EDT [facility] Comment: < 200 Desirable 200 - 239 Borderline High >= 240 High Triglyceride 85 <150 mg/dL 02/09/2020 4:17 PM EDT [facility] [employer] [facility] Comment: < 150 Normal 150 - 199 Borderline High 200 - 499 High >= 500 Very High HDL 41 >=40 mg/dL 02/09/2020 4:17 PM EDT [facility] [employer] Comment: > 60 Optimal 40 - 60 Acceptable < 40 Low LDL Calculated 99 <100 mg/dL 02/09/2020 4:17 PM EDT [facility] Non-HDL-C Calculated 116 <=129 mg/dL 02/09/2020 4:17 PM EDT [facility] [employer] [facility] Comment: <130 Desirable 130-159 Above Desirable 160-189 Borderline High 190-219 High >= 220 Very High Fasting Specimen? Yes None 020 4:17 PM EDT [facility] Blood VENOUS BLOOD / Unknown Venipuncture / Unknown 02/09/2020 9:38 AM EDT 02/09/2020 9:42 AM EDT Luis Villasenor MD CHEMISTRY ORDERABLES Final Result Performing Organization Address City/[facility] Co de Phone Number [facility] [address] [facility], [place] [address] * HEPATITIS C ANTIBODY - SCREENING (12/04/2016 11:16 AM EDT) Pathologist [facility] Hep C Ab Negative Negative [facility] Blood specimen (specimen) UPPER LIMB STRUCTURE / Unknown 12/04/2016 11:16 AM EDT 12/04/2016 4:52 PM EDT Luis Villasenor MD HEMATOLOGY ORDERABLES Final Result Performing Organization Address City/[facility] Co de Phone Number [facility] [address] [place] [address] from Last 3 Months or Most Recently Relevant to Health Maintenance Insurance MEDICARE [place] PART A [place] B [employer] [place] [address] [address] [place]IC[place] PART A [place] [employer] [place] [address] [facility] [place] [address] [place] [address] Advance Directives For more information, please contact: [phone] * Full Code (Latest Code Status on File) Date Activated Date Inactivated Comments 10/28/2018 11:51 AM 10/28/2018 9:26 PM Care Teams Dam Attendant Relationship Specialty Start Date End Date Luis Villasenor MD [address] [place] [phone] PCP - OBGYN 01/09/10 Luis [place] [address] [address] [place] [address] PCP - General 01/09/10
--- OUTSIDE RECORDS SUMMARY | 2024-12-21 13:19 | XMS_ITS | Encounter Summary ---
Author Organization [place] [address] Care Team Providers Care Web Software Engineer Name Role Phone Luis Villasenor MD Unavailable [phone] Luis Villasenor MD Primary Care Provider Encounter Details Date Type Department Care Team (Late st Contact Info) Description 09/26/2010 Orders Only SEP [facility] [address] [place] [address] Jennifer Nagel MD [address] [place] [address] Social History Tobacco Use Types Packs/Day Years [...] a practice prior to that practice using [facility] for Medical Records. Performing Provider: JENNIFER NAGEL Jennifer Nagel MD IMG ECHO ORDERABLES Final Result documented in this encounter Visit Diagnoses Not on filedocumented in this encounter Care Teams Web Software Engineer Relationship Specialty Start Date End Date Luis Villasenor MD [address] [place] [address] PCP - OBGYN 01/09/10 Luis Villasenor MD [address] [place] [address] PCP - General 01/09/10 documented as of this encounter
[2024-12-21 14:10] LABS: PHA INR Fingerstick 2.2 (0.9-1.1)
== END 2024-12-21 14:14 ==
LOC: ACC 13:16
PROVIDERS: PCP Nurse Practitioner Family; Visit Provider Physician Assistant
DX: Z79.01 Long term (current) use of anticoagulants (principal)
CPT/HCPCS: 85610; 99211; G0463

== ENCOUNTER 2024-12-27 17:39 | Inpatient (IN) | payer MEDICARE, SELFPAY ==
--- OUTSIDE RECORDS SUMMARY | 2024-11-04 11:15 | XMS_ITS | Encounter Summary ---
Author Organization [place] [address] Care Team Providers Care Jewel Bearing Driller Name Role Phone Luis Villasenor MD Unavailable [phone] Luis Villasenor MD Primary Care Provider Reason for Visit * Reason Comments Hospital Follow Up Diverticulitis Encounter Details Date Type Department Care Team (Latest Contact Info) Description 11/04/2024 11:15 AM EDT Office Visit SEP Sarah [address] [place] [address] Amarilis Nolan, MILL MANAGER [address] [place] [address] Diverticulitis of large intestine without perforation or [...] this encounter Progress Notes * Amarilis Nolan, MILL MANAGER - 11/04/2024 11:15 AM EDT Assessment & [...] without bleeding Comments: inpatient hospital stay at [facility] November 03, symptoms resolved Peripheral edema [...] consistent with colon primary. Continues with chemotherapy [id number]. Managed by 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 04/2023, R hemicolectomy and anastomosis, pathology of invasive moderately differentiated adenocarcinoma. Metastatic adenocarcinoma in 2/10 lymph nodes. Wedge resection of the liver with metastatic adenocarcinoma consistent with colon primary. Continues with chemotherapy [id number]. Managed by [facility] Oncology [facility] Hematology Return in about 6 weeks (around 12/16/2024) for 6 week follow up, video visit ok. Subjective CHEMA Roblero is a 79 y.o. female Chief Complaint Patient presents with Hospital Follow Up Diverticulitis History of Present Illness The patient is a 79-year-old female here for a hospital follow-up. She was admitted to [facility] for diverticulitis. Denies ongoing symptoms since [...] The provider educated the patient (or legal patient service representative) on the use of the ambient listening artificial intelligence tool, [employer]. They were informed that this AI tool [...] of such information, the patient (or legal patient service representative), and each individual in attendance with the [...] documented as of this encounter Care Teams Jewel Bearing Driller Relationship Specialty Start Date End Date Luis Villasenor MD [address] [place] [id number] PCP - OBGYN 01/09/10 Luis Villasenor MD [address] [place] [id number] PCP - General 01/09/10 documented as of this encounter
--- OUTSIDE RECORDS SUMMARY | 2024-11-04 11:15 | XMS_ITS | Encounter Summary ---
Author Organization [place] [address] Care Team Providers Care Lawn Care Professional Name Role Phone Luis Villasenor MD Unavailable [phone] Luis Villasenor MD Primary Care Provider Reason for Visit * Reason Comments Hospital Follow Up Diverticulitis Encounter Details Date Type Department Care Team (Latest Contact Info) Description 11/04/2024 11:15 AM EDT Office Visit SEP Sarah [address] [place] [phone] Amarilis Nolan, SEWER MAINTENANCE SUPERVISOR [address] [place] [address] Diverticulitis of large intestine without perforation or [...] this encounter Progress Notes * Amarilis Nolan, SEWER MAINTENANCE SUPERVISOR - 11/04/2024 11:15 AM EDT Assessment & [...] without bleeding Comments: inpatient hospital stay at [facility] November 03, symptoms resolved Peripheral edema [...] consistent with colon primary. Continues with chemotherapy [id number]. Managed by [facility] Oncology and Hematology 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) (Chronic) Overview: CT scan 01/2023 with multiple masses of liver and ascending colon thickening. 04/2023, R hemicolectomy and anastomosis, pathology of invasive moderately differentiated adenocarcinoma. Metastatic adenocarcinoma in 2/10 lymph nodes. Wedge resection of the liver with metastatic adenocarcinoma consistent with colon primary. Continues with chemotherapy [id number]. Managed by [facility] Oncology and Hematology Return in about 6 weeks (around 12/16/2024) for 6 week follow up, video visit ok. Subjective CHEMA Roblero is a 79 y.o. female Chief Complaint Patient presents with Hospital Follow Up Diverticulitis History of Present Illness The patient is a 79-year-old female here for a hospital follow-up. She was admitted to [facility] for diverticulitis. Denies ongoing symptoms since [...] The provider educated the patient (or legal parts representative) on the use of the ambient listening artificial intelligence tool, [employer]. They were informed that this AI tool [...] of such information, the patient (or legal parts representative), and each individual in attendance with [...] documented as of this encounter Care Teams Lawn Care Professional Relationship Specialty Start Date End Date Luis Villasenor MD [address] [place] [id number] PCP - OBGYN 01/09/10 Luis Villasenor MD [address] [place] [phone] PCP - General 01/09/10 documented as of this encounter
--- OUTSIDE RECORDS SUMMARY | 2024-11-14 09:00 | XMS_ITS | Encounter Summary ---
Author Organization [place] [address] Care Team Providers Care M[employer] Name Role Phone Luis Villasenor MD Unavailable [phone] Luis Villasenor MD Primary Care Provider Reason for Visit * Reason Comments Follow Up Needs labs, feeling drained, wants a b-12 Encounter Details Date Type Department Care Team (Late Contact Info) Description 11/14/2024 9:00 AM EDT Office Visit SEP Sarah [address] 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); History of DVT (deep vein thrombosis); Paroxysmal atrial fibrillation (HCC); Cobalamin deficiency; Flank pain; Dehydration; Blood loss Social History Tobacco Use Types Packs/Day Years [...] Sign Reading Time Taken Comments Blood Pressure 124/78 11/14/2024 9:10 AM EDT Pulse 75 11/14/2024 9:10 AM EDT Temperature 36.9 C (98.5 F) 11/14/2024 9:10 AM EDT Respiratory Rate 20 11/14/2024 9:10 AM EDT Oxygen Saturation 99% 11/14/2024 9:10 AM EDT Inhaled Oxygen Concentration - - Weight - - Height - - Body Mass Index - - documented in this encounter Functional Status * [...] Author No 02/09/2020 8:59 AM EDT Nghia Redmond, [employer] documented in this encounter Ordered Prescriptions Prescription Sig Dispense Quantity Refills Last Filled Start Date End Date warfarin (COUMADIN) 2.5 mg Oral TabletIndications:Hi story of DVT (deep vein thrombosis),Paroxysm al atrial fibrillation (HCC) Thu, Thu, , Sat and Sun 5 warfarin (COUMADIN) 5 mg Oral TabletIndications:pr event thromboembolism in chronic atrial fibrillation Thursday and Thursday Indications: treatment to prevent blood clots in chronic atrial fibrillation 5 documented in this encounter Progress Notes * Ovidio Amarilis Terrie, [employer] - 11/14/2024 9:00 AM EDT Assessment & Plan 1. Extreme fatigue. - Renal and hepatic functions are within normal limits. - Potassium levels were satisfactory at the start of the month. - Comprehensive blood panel will be ordered, including tests for kidney function, complete blood count, iron, ferritin, B12, and folic acid. - B12 injection will be administered today. 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 04/2023, R hemicolectomy and anastomosis, pathology of invasive moderately differentiated adenocarcinoma. Metastatic adenocarcinoma in 2/10 lymph nodes. Wedge resection of the liver with metastatic adenocarcinoma consistent with colon primary. Discontinued treatment early 2024 per patient decision Managed by [facility] Orders: - CBC WITH DIFF; Future - COMPREHENSIVE METABOLIC PANEL; Future - VITAMIN B12/ FOLIC ACID; Future - IRON+TIBC; Future - FERRITIN; Future History of DVT (deep vein thrombosis) Overview: Following hysterectomy and a/w PE [id number] 2023, extensive RLE DVT, resolved 09/2023 Orders: - warfarin (COUMADIN) 5 mg Oral Tablet; Thursday and Thursday Indications: treatment to prevent blood clots in chronic atrial fibrillation - warfarin (COUMADIN) 2.5 mg Oral Tablet; Thu, Thu, , Sat and Sun Paroxysmal atrial fibrillation (HCC) (Chronic) Overview: Dr. Youngblood, cardiology, [facility] Orders: - warfarin (COUMADIN) 5 mg Oral Tablet; Thursday and Thursday Indications: treatment to prevent blood clots in chronic atrial fibrillation - warfarin (COUMADIN) 2.5 mg Oral Tablet; Thu, Thu, , Sat and Sun Cobalamin deficiency - cyanocobalamin injection 1,000 mcg Flank pain - COMPREHENSIVE METABOLIC PANEL Dehydration - COMPREHENSIVE METABOLIC PANEL Blood loss - CBC WITH DIFF No follow-ups on file. Subjective CHEMA Roblero is a 79 y.o. female Chief Complaint Patient presents with Follow Up Needs labs, feeling drained, wants a b-12 History of Present Illness The patient is a 79-year-old female who presents today with complaints of extreme fatigue. She reports a general feeling of malaise and has expressed interest in receiving monthly B12 injections, similar to the treatment she received during her chemotherapy sessions. She experiences significant fatigue by the end of the day, and is taking her pain medication only in the evening. She alsoreports feeling drained after taking her morning medications, although she feels well upon waking. She has been under the care of home health services since 03/2024. She takes a potassium supplement in the morning. Review of Systems Constitutional: Positive for activity change, appetite change and fatigue. Negative for fever. HENT: Negative. Eyes: Negative. Respiratory: Negative. Cardiovascular: Negative. Gastrointestinal: Positive for abdominal distention and abdominal pain. Negative for vomiting. Genitourinary: Negative for difficulty urinating and dysuria. Skin: Negative. Neurological: Positive for weakness. Psychiatric/Behavioral: Positive for sleep disturbance. Objective Blood pressure 124/78, pulse 75, temperature 98.5 ??F (36.9 ??C), temperature source Temporal, resp. rate 20, SpO2 99%, not currently . There is no height or weight on file to calculate BMI. Physical Exam Vitals reviewed. HENT: Mouth/Throat: Mouth: Mucous membranes are moist. Eyes: Conjunctiva/sclera: Conjunctivae normal. Cardiovascular: Rate and Rhythm: Normal rate and regular rhythm. Pulmonary: Effort: Pulmonary effort is normal. Breath sounds: Normal breath sounds. Abdominal: General: There is distension. Tenderness: There is abdominal tenderness. There is right CVA tenderness and left CVA tenderness. Musculoskeletal: Cervical back: Neck supple. Right lower leg: Edema (mild non-pitting) present. Left lower leg: Edema (mild non-pitting) present. Skin: General: Skin is warm and dry. Coloration: Skin is not jaundiced. Neurological: Mental Status: She is alert and oriented to person, place, and time. Psychiatric: Mood and Affect: Mood normal. Thought Content: Thought content normal. Results Results for orders placed or performed in visit on 11/14/24 COMPREHENSIVE METABOLIC PANEL Result Value Ref Range Sodium 133 (L) 136 - 145 mmol/L Potassium 4.5 3.5 - 5.0 mmol/L Chloride 94 (L) 98 - 107 mmol/L Total CO2 29 22 - 29 mmol/L Anion Gap 10 7 - 16 mmol/L Calcium 9.2 8.8 - 10.4 mg/dL Glucose Lvl 122 (H) 70 - 99 mg/dL BUN 15 8 - 23 mg/dL Creatinine 1.38 (H) 0.51 - 1.30 mg/dL Albumin 3.4 3.2 - 4.6 gm/dL Total Protein 7.8 6.4 - 8.3 gm/dL Bili Total 0.6 0.2 - 1.3 mg/dL ALT <5 <=41 U/L AST 23 <=40 U/L Alk Phos 465 (H) 36 - 123 U/L eGFR (CKD-EPIcr 2020) 39 (L) >=60 mL/min/1.73 m2 CBC WITH DIFF Result Value Ref Range WBC 10.0 3.7 - 10.3 x10(3)/mcL RBC 3.50 (L) 3.90 - 5.20 x10(6)/mcL Hgb 9.9 (L) 11.2 - 15.7 g/dL Hct 32.6 (L) 34.0 - 45.0 % MCV 93.1 80.0 - 100.0 fL MCH 28.3 26.0 - 34.0 pg MCHC 30.4 (L) 30.7 - 35.5 g/dL RDW 14.8 <=14.9 % Platelet 375 (H) 155 - 369 x10(3)/mcL MPV 9.6 8.8 - 12.5 fL Neut Percent 77.1 % Imm Gran% 0.6 % Lymph Percent 9.9 % [place] Percent 8.3 % Eos Percent 3.5 % Baso Percent 0.6 % Neut # 7.7 (H) 1.6 - 6.1 x10(3)/mcL IMMGRAN# 0.1 0.0 - 0.1 x10(3)/mcL Lymph # 1.0 (L) 1.2 - 3.9 x10(3)/mcL [place] # 0.8 0.3 - 0.9 x10(3)/mcL Eos# 0.4 0.0 - 0.5 x10(3)/mcL Baso # 0.1 0.0 - 0.1 x10(3)/mcL VITAMIN B12/ FOLIC ACID Result Value Ref Range Vitamin B12 801 232 - 1,245 pg/mL Folate 9.89 >=4.80 ng/mL Narrative Ingestion of rocio doses of biotin (>5 mg/day) taken within 8 hours of drawing blood sample can interfere with this immunoassay test. IRON+TIBC Result Value Ref Range Iron 26 (L) 30 - 160 mcg/dL Transferrin 153 (L) 200 - 360 mg/dL Transferrin Saturation 12 (L) 20 - 50 % TIBC 214 (L) 250 - 400 mcg/dL FERRITIN Result Value Ref Range Ferritin 728 (H) 30 - 150 ng/mL Narrative Ingestion of rocio doses of biotin (>5 mg/day) taken within 8 hours of drawing blood sample can interfere with this immunoassay test. The provider educated the patient (or legal sales representative marine supplies) on the use of the ambient listening artificial intelligence tool, [employer]. They were informed that this AI tool [...] information, the patient (or legal sales representative marine supplies), and each individual in attendance with the patient, verbally consented to the use of the AI tool. * Freya Coon - 11/14/2024 9:00 AM EDT Venipuncture in the right antecubital [...] Procedure Name Priority Date/Time Associated Diagnosis Comments IRON+TIBC Routine 11/14/2024 10:07 AM EDT 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) VITAMIN B12/ FOLIC ACID Routine 11/14/2024 10:07 AM EDT 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) CBC WITH DIFF Routine 11/14/2024 10:07 AM EDT Blood loss FERRITIN Routine 11/14/2024 10:07 AM EDT 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) COMPREHENSIVE METABOLIC PANEL Routine 11/14/2024 10:07 AM EDT Flank pain Dehydration documented in this encounter Results * (ABNORMAL) CBC WITH DIFF (11/14/2024 10:07 AM EDT) WBC 10.0 3.7 - 10.3 x10(3)/mcL 11/14/2024 3:44 PM EDT [facility] RBC 3.50(L) 3.90 - 5.20 x10(6)/mcL 11/14/2024 3:44 PM EDT [facility] Hgb 9.9(L) 11.2 - 15.7 g/dL 11/14/2024 3:44 PM EDT [facility] Hct 32.6(L) 34.0 - 45.0 % 11/14/2024 3:44 PM EDT [facility] MCV 93.1 80.0 - 100.0 fL 11/14/2024 3:44 PM EDT [facility] MCH 28.3 26.0 - 34.0 pg 11/14/2024 3:44 PM EDT [facility] MCHC 30.4(L) 30.7 - 35.5 g/dL 11/14/2024 3:44 PM EDT [facility] RDW 14.8 <=14.9 % 11/14/2024 3:44 PM EDT [facility] Platelet 375(H) 155 - 369 x10(3)/mcL 11/14/2024 3:44 PM EDT [facility] MPV 9.6 8.8 - 12.5 fL 11/14/2024 3:44 PM EDT [facility] Neut Percent 77.1 % 11/14/2024 3:44 PM EDT [facility] Comment:Neutrophils equals s egs plus bands Imm Gran% 0.6 % 11/14/2024 3:44 PM EDT [facility] Comment:Automated count of m etamyelocytes, myelocytes and promyelocytes. Lymph Percent 9.9 % 11/14/2024 3:44 PM EDT [facility] [place] Percent 8.3 % 11/14/2024 3:44 PM EDT [facility] Eos Percent 3.5 % 11/14/2024 3:44 PM EDT [facility] Baso Percent 0.6 % 11/14/2024 3:44 PM EDT [facility] Neut # 7.7(H) 1.6 - 6.1 x10(3)/mcL 11/14/2024 3:44 PM EDT [facility] Comment:Neutrophils equals s egs plus bands IMMGRAN# 0.1 0.0 - 0.1 x10(3)/mcL 11/14/2024 3:44 PM EDT [facility] Comment:Automated count of m etamyelocytes, myelocytes and promyelocytes. An absolute IG <0.1 is reported as 0.0. Lymph # 1.0(L) 1.2 - 3.9 x10(3)/mcL 11/14/2024 3:44 PM EDT [facility] [place] # 0.8 0.3 - 0.9 x10(3)/mcL 11/14/2024 3:44 PM EDT [facility] Eos# 0.4 0.0 - 0.5 x10(3)/mcL 11/14/2024 3:44 PM EDT [facility] Baso # 0.1 0.0 - 0.1 x10(3)/mcL 11/14/2024 3:44 PM EDT [facility] Blood VENOUS BLOOD / Unknown Venipuncture / Unknown 11/14/2024 10:07 AM EDT 11/14/2024 10:07 AM EDT us Amarilis Nolan [employer] HEMATOLOGY ORDERABLES Fin al Result [facility] [address] [facility] , [place] [address] * (ABNORMAL) COMPREHENSIVE METABOLIC PANEL (11/14/2024 10:07 AM EDT) Sodium 133(L) 136 - 145 mmol/L 11/14/2024 4:07 PM EDT [facility] Potassium 4.5 3.5 - 5.0 mmol/L 11/14/2024 4:07 PM EDT [facility] Chloride 94(L) 98 - 107 mmol/L 11/14/2024 4:07 PM EDT [facility] Total CO2 29 22 - 29 mmol/L 11/14/2024 4:07 PM EDT [facility] Anion Gap 10 7 - 16 mmol/L 11/14/2024 4:07 PM EDT [facility] Calcium 9.2 8.8 - 10.4 mg/dL 11/14/2024 4:07 PM EDT [facility] Glucose Lvl 122(H) 70 - 99 mg/dL 11/14/2024 4:07 PM EDT [facility] BUN 15 8 - 23 mg/dL 11/14/2024 4:07 PM EDT [facility] Creatinine 1.38(H) 0.51 - 1.30 mg/dL 11/14/2024 4:07 PM EDT [facility] Albumin 3.4 3.2 - 4.6 gm/dL 11/14/2024 4:07 PM EDT [facility] Total Protein 7.8 6.4 - 8.3 gm/dL 11/14/2024 4:07 PM EDT [facility] Bili Total 0.6 0.2 - 1.3 mg/dL 11/14/2024 4:07 PM EDT [facility] ALT <5 <=41 U/L 11/14/2024 4:07 PM EDT [facility] AST 23 <=40 U/L 11/14/2024 4:07 PM EDT [facility] Alk Phos 465(H) 36 - 123 U/L 11/14/2024 4:07 PM EDT [facility] eGFR (CKD-EPIcr 2020) 39(L) >=60 mL/min/1.7 3 m2 11/14/2024 4:07 PM EDT [facility] Comment:Estimated GFR was ca lculated using the CKD-EPIcr (2020) equation refit without race. The equation is recommended by the National Kidney Foundation - [place] [employer] of Nephrology Task Force. Blood VENOUS BLOOD / Unknown Venipuncture / Unknown 11/14/2024 10:07 AM EDT 11/14/2024 10:07 AM EDT Amarilis Nolan [employer] CHEMISTRY ORDERABLES Kell orlando Result [facility] [address] [facility] , [address] [place] [id number] * (ABNORMAL) FERRITIN (11/14/2024 10:07 AM EDT) Ferritin 728(H) 30 - 150 ng/mL 11/14/2024 4:07 PM EDT [facility] Comment:The lower threshold of 30 is not statistically defined, nor internally validated. The threshold has been updated to more closely reflect a physiologic basis. Susanna De León, et al. Physiologically based serum ferritin thresholds for iron deficiency in children and non- women: a [place] National Health and Nutrition Examination Surveys (NHANES) serial cross-sectional study. Lancet Haematol 2020;8:e572-82. Blood VENOUS BLOOD / Unknown Venipuncture / Unknown 11/14/2024 10:07 AM EDT 11/14/2024 10:07 AM EDT Narrative [facility] - 11/14/2024 4:07 PM EDT Ingestion of rocio doses of biotin (>5 mg/day) taken within 8 hours of drawing blood sample can interfere with this immunoassay test. Amarilis Nolan APRN CHEMISTRY ORDERABLES Kell l Result Performing Organization Address City/[facility] Co de Phone Number [facility] [address] [facility] , [place] [address] * (ABNORMAL) IRON+TIBC (11/14/2024 10:07 AM EDT) Iron 26(L) 30 - 160 mcg/dL 11/14/2024 4:07 PM EDT [facility] Transferrin 153(L) 200 - 360 mg/dL 11/14/2024 4:07 PM EDT [facility] Transferrin Saturation 12(L) 20 - 50 % 11/14/2024 4:07 PM EDT [facility] TIBC 214(L) 250 - 400 mcg/dL 11/14/2024 4:07 PM EDT [facility] Blood VENOUS BLOOD / Unknown Venipuncture / Unknown 11/14/2024 10:07 AM EDT 11/14/2024 10:07 AM EDT Amarilis Nolan APRN CHEMISTRY ORDERABLES Kell l Result Performing Organization Address City/[facility]/ZIP Co de Phone Number [facility] [address] [facility] , [place] [address] * VITAMIN B12/ FOLIC ACID (11/14/2024 10:07 AM EDT) Vitamin B12 801 232 - 1,245 pg/mL 11/14/2024 4:02 PM EDT [facility] Folate 9.89 >=4.80 ng/mL 11/14/2024 4:02 PM EDT [facility] Blood VENOUS BLOOD / Unknown Venipuncture / Unknown 11/14/2024 10:07 AM EDT 11/14/2024 10:07 AM EDT Narrative [facility] - 11/14/2024 4:02 PM EDT Ingestion of rocio doses of biotin (>5 mg/day) taken within 8 hours of drawing blood sample can interfere with this immunoassay test. us Amarilis Nolan APRN CHEMISTRY ORDERABLES Kell darion Result [facility] [address] [facility] , [address] [place] [id number] documented in this encounter Visit Diagnoses Diagnosis 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)- Primary Secondary malignant neoplasm of liver History of DVT (deep vein thrombosis) Personal history of venous thrombosis and embolism Paroxysmal atrial fibrillation (HCC) Atrial fibrillation Cobalamin deficiency Other B-complex deficiencies Flank pain Abdominal pain, unspecified site Dehydration Blood loss Hemorrhage, unspecified documented in this encounter Administered Medications Inactive Administered Medications - up to 1 most recent administrations Medication Order MAR Action Action Date Dose Rate Site cyanocobalamin injection 1,000 mcg 1,000 mcg, Intramuscular, ONCE, 1 dose, On Thu11/14/24 at 0945, Dx: 1. Cobalamin deficiencyIndications:Cob alamin deficiency Given 11/14/2024 10:10 AM EDT 1,000 mcg Right Deltoid documented in this encounter Discontinued Medications Medication Sig Discontinue Reason Start Date End Da te warfarin (COUMADIN) 5 mg Oral TabletIndications:preven t thromboembolism in chronic atrial fibrillation Take 1 Tablet by mouth daily. Indications: treatment to prevent blood clots in chronic atrial fibrillation Dose adjustment 06/14/2024 11/14/2024 warfarin (COUMADIN) 2.5 mg Oral TabletIndications:Histor y of DVT (deep vein thrombosis),Paroxysmal atrial fibrillation (HCC) Take 1 Tablet by mouth daily. Dose adjustment 06/14/2024 11/14/2024 rOPINIRole (REQUIP) 0.5 mg Oral Tablet Take 1 Tablet by mouth 3 times daily. Cancelled by 11/14/2024 HYDROcodone-acetaminophe n (NORCO) 5-325 mg Oral Tablet Take 1 Tablet by mouth every 6 hours as needed. Cancelled by 01/04/2024 11/14/2024 DULoxetine (CYMBALTA) 30 mg Oral Capsule, Delayed Release(E.C.) Take 30 mg by mouth daily. Cancelled by 11/14/2024 famotidine (PEPCID) 20 mg Oral Tablet Take 20 mg by mouth 2 times daily. Cancelled by 11/14/2024 folic acid (FOLVITE) 1 mg Oral Tablet Take by mouth daily. Cancelled by 01/04/2024 11/14/2024 documented as of this encounter Historical Medications * This list may reflect changes made after this encounter. HYDROcodone-aceta minophen (NORCO) 10-325 mg Oral Tablet Take 1 Tablet by mouth every 6 hours as needed. HYDROmorphone (DILAUDID) 2 mg Oral Tablet Take 2 mg by mouth every 4 hours as needed. ondansetron (ZOFRAN) 4 mg Oral Tablet Take 4 mg by mouth every 6 hours. 12/19/2024 added in this encounter Orders Lab Orders Without Results Count Last Ordered D ate First Ordered Date CBC WITH DIFF 1 11/14/2024 COMPREHENSIVE METABOLIC PANEL 1 11/14/2024 documented in this encounter Additional Health Concerns Assessment Noted Time A fall risk assessment has been complete d for the patient 06/14/2024 9:03 AM EST documented as of this encounter Care Teams [employer] Relationship Specialty Start Date End Date Luis Villasenor MD [address] [place] [id number] PCP - OBGYN 01/09/10 Luis Villasenor MD [address] [place] [id number] PCP - General 01/09/10 documented as of this encounter
--- OUTSIDE RECORDS SUMMARY | 2024-11-14 09:00 | XMS_ITS | Encounter Summary ---
Author Organization [place] [address] Care Team Providers Care Automotive Metalsmith Name Role Phone Luis Villasenor MD Unavailable [phone] Luis Villasenor MD Primary Care Provider [phone] Reason for Visit * Reason Comments Follow Up Needs labs, feeling drained, wants a b-12 Encounter Details Date Type Department Care Team (Late Contact Info) Description 11/14/2024 9:00 AM EDT Office Visit SEP Sarah [address] [place] [phone] Amarilis Nolan, WIND PROJECT MANAGER [address] [place] [address] 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) (Primary [...] Author No 02/09/2020 8:59 AM EDT Nghia Redmodn CMA documented as of this encounter Mental Status * Because of a physical, mental or emotional condition, does this person have serious difficulty concentrating, remembering or making decisions? Answer Entry Date Author No 02/09/2020 8:59 AM EDT Nghia Redmond, RESIDENTIAL DIRECT SUPPORT PROFESSIONAL documented in this encounter Ordered Prescriptions Prescription [...] encounter Progress Notes * Ovidio Amarilis Terrie, WIND PROJECT MANAGER - 11/14/2024 9:00 AM EDT Assessment & [...] 2024 per patient decision Managed by [facility] Orders: - CBC WITH [...] fibrillation (HCC) (Chronic) Overview: Dr. Youngblood, cardiology, [facility] Orders: - warfarin (COUMADIN) 5 mg [...] Gran% 0.6 % Lymph Percent 9.9 % [place] Percent 8.3 % Eos Percent 3.5 % Baso Percent 0.6 % Neut # 7.7 (H) 1.6 - 6.1 x10(3)/mcL IMMGRAN# 0.1 0.0 - 0.1 x10(3)/mcL Lymph # 1.0 (L) 1.2 - 3.9 x10(3)/mcL [place] # 0.8 0.3 - 0.9 x10(3)/mcL Eos# [...] The provider educated the patient (or legal care support representative) on the use of the ambient listening artificial intelligence tool, [employer]. They were informed that this AI tool [...] of such information, the patient (or legal care support representative), and each individual in attendance with [...] 11/14/2024 3:44 PM EDT [facility] MCH 28.3 26.0 - 34.0 pg 11/14/2024 3:44 PM EDT [facility] MCHC 30.4(L) 30.7 - 35.5 g/dL 11/14/2024 3:44 PM EDT [facility] RDW 14.8 <=14.9 % 11/14/2024 3:44 PM EDT [facility] Platelet 375(H) 155 - 369 x10(3)/mcL 11/14/2024 3:44 PM EDT [facility] MPV 9.6 8.8 - 12.5 fL 11/14/2024 3:44 PM EDT [facility] Neut Percent 77.1 % 11/14/2024 3:44 PM EDT [facility] Comment:Neutrophils equals s egs plus bands Imm Gran% 0.6 % 11/14/2024 3:44 PM EDT [facility] Comment:Automated count of m etamyelocytes, myelocytes and promyelocytes. Lymph Percent 9.9 % 11/14/2024 3:44 PM EDT [facility] [place] Percent 8.3 % 11/14/2024 3:44 PM EDT [facility] Eos Percent 3.5 % 11/14/2024 3:44 PM EDT [facility] Baso Percent 0.6 % 11/14/2024 3:44 PM EDT [facility] Neut # 7.7(H) 1.6 - 6.1 x10(3)/mcL 11/14/2024 3:44 PM EDT [facility] Comment:Neutrophils equals s egs plus bands IMMGRAN# 0.1 0.0 - 0.1 x10(3)/mcL 11/14/2024 3:44 PM EDT [facility] Comment:Automated count of m etamyelocytes, myelocytes and promyelocytes. An absolute IG <0.1 is reported as 0.0. Lymph # 1.0(L) 1.2 - 3.9 x10(3)/mcL 11/14/2024 3:44 PM EDT [facility] [place] # 0.8 0.3 - 0.9 x10(3)/mcL 11/14/2024 3:44 PM EDT [facility] Eos# 0.4 0.0 - 0.5 x10(3)/mcL 11/14/2024 3:44 PM EDT [facility] Baso # 0.1 0.0 - 0.1 x10(3)/mcL 11/14/2024 3:44 PM EDT [facility] Blood VENOUS BLOOD / Unknown Venipuncture / Unknown 11/14/2024 10:07 AM EDT 11/14/2024 10:07 AM EDT us Amarilis Nolan WIND PROJECT MANAGER HEMATOLOGY ORDERABLES Fin al Result [facility] [address] [facility] , [place] [address] * (ABNORMAL) COMPREHENSIVE METABOLIC PANEL (11/14/2024 10:07 [...] 11/14/2024 4:07 PM EDT [facility] Albumin 3.4 3.2 - 4.6 gm/dL 11/14/2024 4:07 PM EDT [facility], [facility] Total Protein 7.8 6.4 - 8.3 gm/dL 11/14/2024 4:07 PM EDT [facility], [facility] Bili Total 0.6 0.2 - 1.3 mg/dL 11/14/2024 4:07 PM EDT [facility], [facility] ALT <5 <=41 U/L 11/14/2024 4:07 PM EDT [facility], [facility] AST 23 <=40 U/L 11/14/2024 4:07 PM EDT [facility], [facility] Alk Phos 465(H) 36 - 123 U/L 11/14/2024 4:07 PM EDT [facility] eGFR (CKD-EPIcr 2020) 39(L) >=60 mL/min/1.7 3 m2 11/14/2024 4:07 PM EDT [facility] Comment:Estimated GFR was ca lculated using the CKD-EPIcr (2020) equation refit without race. The equation is recommended by the National Kidney Foundation - [place] Society of Nephrology Task Force. Blood VENOUS BLOOD / Unknown Venipuncture / Unknown 11/14/2024 10:07 AM EDT 11/14/2024 10:07 AM EDT Amarilis Nolan WIND PROJECT MANAGER CHEMISTRY ORDERABLES Kell orlando Result [facility], [facility] [address] [facility] , [address] [place] [id number] * (ABNORMAL) FERRITIN (11/14/2024 10:07 AM EDT) Ferritin 728(H) 30 - 150 ng/mL 11/14/2024 4:07 PM EDT [facility], [facility] Comment:The lower threshold of 30 is [...] 11/14/2024 10:07 AM EDT Narrative [facility] [employer] - 11/14/2024 4:07 PM EDT Ingestion of rocio doses of biotin (>5 mg/day) taken within 8 hours of drawing blood sample can interfere with this immunoassay test. Amarilis Nolan APRN CHEMISTRY ORDERABLES Kell l Result Performing Organization Address City/[facility] Co de Phone Number [facility] [employer] [facility] [address] [facility] , [place] [address] * (ABNORMAL) IRON+TIBC (11/14/2024 10:07 AM EDT) Iron 26(L) 30 - 160 mcg/dL 11/14/2024 4:07 PM EDT [facility] Transferrin 153(L) 200 - 360 mg/dL 11/14/2024 4:07 PM EDT [facility] [employer] Transferrin Saturation 12(L) 20 - 50 % 11/14/2024 4:07 PM EDT [facility] [employer] TIBC 214(L) 250 - 400 mcg/dL 11/14/2024 4:07 PM EDT [facility] [employer] Blood VENOUS BLOOD / Unknown Venipuncture / Unknown 11/14/2024 10:07 AM EDT 11/14/2024 10:07 AM EDT Amarilis Nolan APRN CHEMISTRY ORDERABLES Kell l Result Performing Organization Address City/[facility]/ZIP Co de Phone Number [facility] [employer] [facility] [address] [facility] , [place] [address] * VITAMIN B12/ FOLIC ACID (11/14/2024 10:07 AM EDT) Vitamin B12 801 232 - 1,245 pg/mL 11/14/2024 4:02 PM EDT [facility] Folate 9.89 >=4.80 ng/mL 11/14/2024 4:02 PM EDT [facility] Blood VENOUS BLOOD / Unknown Venipuncture / Unknown 11/14/2024 10:07 AM EDT 11/14/2024 10:07 AM EDT Narrative [facility] - 11/14/2024 4:02 PM EDT Ingestion of rocio doses of biotin (>5 mg/day) taken within 8 hours of drawing blood sample can interfere with this immunoassay test. us Amarilis Nolan APRN CHEMISTRY ORDERABLES Kell darion Result [facility] [address] [facility] , [address] [place] [id number] documented in this encounter Visit Diagnoses Diagnosis [...] documented as of this encounter Care Teams Automotive Metalsmith Relationship Specialty Start Date End Date Luis Villasenor MD [address] [place] [phone] PCP - OBGYN 01/09/10 Luis Villasenor MD [address] [place] [phone] PCP - General 01/09/10 documented as of this encounter
--- OUTSIDE RECORDS SUMMARY | 2024-12-19 09:00 | XMS_ITS | Encounter Summary ---
Author Organization [place] [address] Care Team Providers Care Senior Payroll Specialist Name Role Phone Luis Villasenor MD Unavailable [phone] Luis Villasenor MD Primary Care Provider Reason for Visit * Reason Comments Medicare Annual Wellness Encounter Details Date Type Department Care Team (Latest Contact Info) Description 12/19/2024 9:00 AM EDT Office Visit [facility] [address] 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 Social History Tobacco [...] Answer Date Recorded PHQ-2 Total Score 0 12/19/2024 PRAPARE - Transportation Answer Date Re corded [...] Sign Reading Time Taken Comments Blood Pressure 91/63 12/19/2024 9:13 AM EDT Pulse 68 12/19/2024 9:13 AM EDT Temperature 36.6 C (97.8 F) 12/19/2024 9:13 AM EDT Respiratory Rate 20 12/19/2024 9:13 AM EDT Oxygen Saturation - - Inhaled Oxygen Concentration - - Weight 92 kg (202 lb 12.8 oz) 12/19/2024 9:13 AM EDT Height 162.6 cm (5' 4 ) 12/19/2024 9:13 AM EDT Body Mass Index 34.81 12/19/2024 9:13 AM EDT documented in this encounter Functional [...] 02/09/2020 8:59 AM EDNghia Paris CMA * PHQ-9 Total Score Answer Date of Assessment Author 0 12/19/2024 9:07 AM EDPau Carter RMA * Question Answer Date of Assessment Author Little interest or pleasure in doing things 0 12/19/2024 9:07 AM EDT Pau Gray RMA Feeling down, depressed, or hopeless 0 12/19/2024 9:07 AM EDT Pau Gray RMA PHQ-2 Total Score 0 12/19/2024 9:07 AM EDT Pau Gray RMA * PHQ-2 Total Score Answer Date of Assessment Author 0 12/19/2024 9:07 AM BASILT Pau Kelly RMA documented as of this encounter Mental Status * Because of a physical, mental or emotional condition, does this person have serious difficulty concentrating, remembering or making decisions? Answer Entry Date Author No 02/09/2020 8:59 AM Nghia Aguirre CMA documented in this encounter Ordered Prescriptions Prescription Sig Dispense Quantity Refills Last Filled Start Date End Date ondansetron (ZOFRAN) 4 mg Oral TabletIndications: Malignant tumor of ascending colon (HCC),Hyponatremia Take 2 Tablets by mouth every 6 hours as needed for Nausea. 40 Tablet 5 12/19/2024 Menthol-Zinc Oxide (CALMOSEPTINE) 0.44-20.6 % Top OintmentIndication s:Skin breakdown Apply 1 mL topically 6 times daily. 113 g 2 12/19/2024 documented in this encounter Progress Notes * Amarilis Nolan APRN - 12/19/2024 9:00 AM EDT Dx/Orders: Diagnoses and all orders for this visit: Medicare annual wellness visit, subsequent Paroxysmal atrial fibrillation (HCC) (Chronic) Overview: Dr. Youngblood, cardiology, [facility] Orders: - PT / INR; Standing Malignant tumor of ascending colon (HCC) (Chronic) Overview: CT scan 01/2023 with multiple masses of liver and ascending colon thickening. 04/2023, R hemicolectomy and anastomosis, pathology of invasive moderately differentiated adenocarcinoma. Metastatic adenocarcinoma in 2/10 lymph nodes. Wedge resection of the liver with metastatic adenocarcinoma consistent with colon primary. Continues with chemotherapy [id number]. Managed by [facility] Orders: - ondansetron (ZOFRAN) 4 mg Oral Tablet; Take 2 Tablets by mouth every 6 hours as needed for Nausea. Dispense: 40 Tablet; Refill: 5 Hyponatremia - ondansetron (ZOFRAN) 4 mg Oral Tablet; Take 2 Tablets by mouth every 6 hours as needed for Nausea. Dispense: 40 Tablet; Refill: 5 Type 2 diabetes mellitus without complication, unspecified whether [facility] insulin use (HCC) (Chronic) - IRIS DIABETIC RETINOPATHY EXAM Skin breakdown - Menthol-Zinc Oxide (CALMOSEPTINE) 0.44-20.6 % Top Ointment; Apply 1 mL topically 6 times daily. Dispense: 113 g; Refill: 2 [facility] (current) use of anticoagulants Overview: Coumadin therapy, Afib Orders: - PT / INR; Standing No follow-ups on file. Subjective FRANK Roblero is a 79 y.o. female Chief Complaint Patient presents with Medicare Annual Wellness Medicare Wellness Assessment: Subsequent Annual Medicare Wellness Assessment. Risk Assessments: Fall Risk Assessment Has the patient had any fall with injury in the past year?: No Has the patient had 2 or more falls in the past year?: No Is the patient able to sit without assistance?: Yes Is the patient able to get up without assistance?: Yes Does the patient have a difficult time ambulating when first getting up?: (!) Yes Does the patient have rugs or runners in the home?: (!) Yes Does the patient have grab bars in the bathroom?: Yes Does the patient have stairs inside or outside of the home?: No (In Office Assessment Only): Is the patient able to ambulate without assistance/device and with a gait steady?: Yes (In Office Assessment Only): TUG test: Time patient going from sitting to standing, walk 10 feet, return to chair and sit. Record time. : (!) 13-20 seconds Functional Status Assessment Functional Level: self care Functional Mobility Assessment: (!) mobile with cane/walker Assessment of transportation needs: still drives most of the time Functional Activities of Daily Living Limitations: (!) ambulation; bathing/hygiene Bladder: Do you have issues with your bladder, such as urgency or leaking urine?: Mild issues Does the patient report issues or concerns regarding hearing?: No Activities of Daily Living Assistive Device Assessment Assistive Devices: Wheelchair; Eyeglasses Rx Osteoporosis Screening Assessment Has the patient had a DEXA (Bone Density) scan in the past 2 years?: (!) No No results found for this or any previous visit. Abnormal Pains Assessment Excluding what you would consider normal aches and pains for your age and medical condition, do youhave any unusual or worrisome pains?: No Opiate Screening Are you currently on opiate or narcotic medications?: No PHQ Depression Screening Results Little interest or pleasure in doing things: 0 Feeling down, depressed, or hopeless: 0 PHQ-2 Total Score: 0 PHQ-9 Total Score: 0 Advanced Directive Evaluation Does the patient have an Advance Directive?: (!) No Advance Care Planning Guide Given?: (!) No (For Dementia Screening below can use either AD-8 or Mini Cog. Doesn't require both.) AD-8 Dementia Screening tool results Problems with judgement: 0 Less interest in hobbies/activities: 0 Repeats the same things over and over: 0 Trouble learning how to use a tool, appliance or gadget: 0 Forgets correct month or year: 0 Trouble handling complicated financial affairs: 0 Trouble remembering appointments: 0 Daily problems with thinking and/or memory: 0 Total AD8 score:: 0 Mini Cog Dementia Screening tool results Number of words immediately repeated back correctly.: 3 Clock Test: Please draw a clock face and draw in hands to show 10 minutes past eleven o'clock.: correct number placement, 1 pt; correct hand placement, 1 pt Number of Words Recalled: 3 Dementia: Negative Welcome to Medicare Vision Screening Eye Exam : Not applicable/required for Subsequent AWV, only required for Welcome to Medicare Visit Patient Instructions AWV findings and Plan of Care: Recommendations as part of the Personal Plan of Care based on risk screening assessments are: Fall Risk Assessment: Fall Risk Assessment: positive - remove rugs, runners and other trip hazards positive - use assist devices routinely (cane, walker or wheelchair) Functional Status/Social Determinates of Health: issues noted but adequately managed by patient, social support and/or family Depression Screening: negative - re-assess in 1 year Dementia Screening: negative - recommend re-assess in 1 year Vaccinations: patient declined all vaccines today Exercise/Activity: not recommended due to patients current health status / physical limitations Recommended follow up annually for Medicare Annual Wellness Visit. Good preventative health care is important in reducing morbidity and mortality. I recommend exercise regularly as tolerated focusing on strength and balance. I recommend a balanced diet focusing on fruits, veggies, and lean meats. I recommend avoiding having rugs, runners, or other loose trip hazards in the home as these increase fall risk. I recommend installing grab bars in the bathrooms close to toilets, in tubs, and in showers as these are common areas for falls when transitioning from wet surfaces to dry surfaces, or visa versa. This is also an area of the home that is high risk for falls at night. I encourage having an Advanced Directives. This is something we recommend you have on file at home,as well as something that we should have on file in our records. If we don't have a copy of your current Advanced Directive, please bring a copy to your next visit. If you have a power of staff attorney orsurrogate, we should also have a copy on file. I encourage candid discussion with your family on your wishes in the event that you are incapacitated and unable to participate in direct medical decision making. It is important to stay up to date on recommended vaccinations, please see the health maintenance topics due below and if we have not completed one of those topics today, please consider completing as part of your wellness plan this year. Below are other health maintenance topics that are recommended to be closed at your earliest opportunity. You may notice that some of these were addressed in the office today and will show as resolved in your [employer] account soon. Health Maintenance Due Topic Date Due Wellness Exam Medicare Never done COVID-19 Vaccine (1) Never done Kidney Health: uACR Never done Zoster (1 of 2) Never done Bone Density Screening Never done DTaP/TDaP/Td (2 - Td or Tdap) 01/20/2021 Lipids 02/08/2021 RSV or 60+ (1 - 1-dose 75+ series) Never done Hemoglobin A1c 03/10/2023 As part of today's visit the components of the Medicare wellness assessment were completed. These components included reviewing the information available in the risk screening questionnaire that was administered by ancillary staff either today or prior to today's visit (pre-visit planning) and recorded in the Medicare Wellness Assessment Flowsheet in the EMR. I have reviewed the data in regards to fall risk, activities of daily living/functional status, depression screening, dementia screening,and outstanding Health Maintenance topics and edited where necessary. The staff has reviewed and updated the past medical history, social history, family history, allergies, medications, and care team information during the standard rooming process. I have also reviewed this data as part of today'svisit. Below are the findings, recommendations, and Personal Plan of Care. The patient received a copy of their Personal Plan of Care including health maintenance topics thatare recommended to be completed and this can be noted in the after visit summary. The AVS is provided to the patient digitally through their MyChart account or with a paper copy if the patient doesn't have an active MyChart Account. A copy of today's progress note with recommendations below is alsoavailable electronically for patients with an active [employer] account per the Federal Cures Act. TheAVS also contains additional patient education if appropriate on topics common to wellness and their plan of care. History Reviewed: No results found. Results for orders placed or performed in visit on 12/19/24 IRIS DIABETIC RETINOPATHY EXAM Result Value Ref Range Retinopathy Exam Severity NORMAL Right Diabetic Retinopathy None Right Macular Edema None Right Other Retina None Right Eye Image Quality Gradable Image Left Diabetic Retinopathy None Left Macular Edema None Left Other Retina None Left Eye Image Quality Gradable Image Impression Retinal Study Result for DESHAWN ROBLERO DESHAWN CHAMBERS, a 79 y/o, F (: 1945, ) presented to [facility] on 12-19-2024 for a retinal imaging study of the left and right eyes. Based on the findings of the study, the following is recommended for DESHAWN CHAMBERS Normal Study: Return for follow up retina evaluation within 2 years Interpreting Provider's Comments: No comments provided Diagnoses Present: E119 - Type 2 diabetes mellitus without complications Right eye findings: Negative for Diabetic Retinopathy Negative for Macular Edema Left eye findings: Negative for Diabetic Retinopathy Negative for Macular Edema This result was electronically signed by John Hylton MD, , Taxonomy: [id number] 12-19-2024 13:31 [facility]. NOTE: Any pathology noted on this diabetic retinal evaluation should be confirmed by an appropriateophthalmic examination. 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 Paroxysmal atrial fibrillation (HCC) Cobalamin deficiency Acute on chronic systolic congestive heart failure, NYHA class 1 (HCC) Chronic atrial fibrillation (HCC) Past Medical History: Diagnosis Date Arrhythmia Arthritis ASHD (arteriosclerotic heart disease) Cardiac dysrhythmia, unspecified skips or adds a beat Deep vein thrombosis (HCC) in 1990 related at the time of hysterectomy DNR (do not resuscitate) 2014 DVT (deep venous thrombosis) (HCC) several dvt's in rt leg after hysterectomy that went to lungs Fibroid, uterine BRANDY Glucose intolerance (impaired glucose tolerance) Gout Hypertension Living will, counseling/discussion 2014 Osteoarthritis Pulmonary embolism (HCC) 1990 at the time of hysterectomy Thyroid disease hypothyroid Past Surgical History: Procedure Laterality Date CARDIAC CATHETERIZATION CATARACT REMOVAL Left 07/09/2013 LEFT EYE CATARACT EXTRACTION WITH PHACOEMULSIFICATION AND INTRAOCULAR LENS; Surgeon: Keith Lynn MD; Location: [facility]; Service: Ophthalmology CATARACT REMOVAL Right 08/03/2013 RIGHT EYE CATARACT EXTRACTION WITH PHACOEMULSIFICATION AND INTRAOCULAR LENS ; Surgeon: Keith Lynn MD; Location: [facility]; Service: Ophthalmology HYSTERECTOMY secondary to uterine fibroids TONGUE SURGERY benign tumor removed Allergies Allergen Reactions Allopurinol Myalgia Tetracycline Rash Current Outpatient Medications on File Prior to Visit Medication Sig Dispense Refill cefdinir (OMNICEF) 300 mg Oral Capsule Take 300 mg by mouth every 12 hours. fUROsemide (LASIX) 40 mg Oral Tablet Take 1 Tablet by mouth daily. 90 Tablet 3 HYDROcodone-acetaminophen (NORCO) 10-325 mg Oral Tablet Take 1 Tablet by mouth every 6 hours as needed. HYDROmorphone (DILAUDID) 2 mg Oral Tablet Take 2 mg by mouth every 4 hours as needed. JANTOVEN 2 mg Oral Tablet Take 2 mg by mouth daily. magnesium oxide (MAG-OX) 400 mg (241.3 mg magnesium) Oral Tablet Take 400 mg by mouth daily. as directed metoprolol succinate (TOPROL-XL) 50 mg Oral Tablet Sustained Release 24 hr Take 50 mg by mouth nightly. NYSTOP Top Powder APPLY TOPICALLY TO THE AFFECTED AEA(S) 2 TIMES A DAY NEEDED potassium chloride (KLOR-CON M) 20 mEq Oral Tab Sust.Rel. Particle/Crystal Take 1 Tablet by mouth daily. 90 Tablet 0 rOPINIRole (REQUIP) 0.5 mg Oral Tablet Take 0.5 mg by mouth 3 times daily. spironolactone (ALDACTONE) 25 mg Oral Tablet Take 1 Tablet by mouth daily. 90 Tablet 3 warfarin (COUMADIN) 2.5 mg Oral Tablet Thu, Thu, , Sat and Sun (Patient not taking: Reported on 12/19/2024) warfarin (COUMADIN) 5 mg Oral Tablet Thursday and Thursday Indications: treatment to prevent blood clots in chronic atrial fibrillation (Patient not taking: Reported on 12/19/2024) No current facility-administered medications on file prior to visit. Social History Socioeconomic History Marital status: Spouse name: None Number of children: None Years of education: None Highest education level: None Tobacco Use Smoking status: Some Days Current packs/day: 0.00 Average packs/day: 1 pack/day for 1 year (1.0 ttl pk-yrs) Types: Cigarettes Start date: 01/21/1980 Last attempt to quit: 01/20/1981 Years since quittin.9 Smokeless tobacco: Never Vaping Use Vaping status: Never Used Substance and Sexual Activity Alcohol use: No Comment: wine occasionally Drug use: No Sexual activity: Never Social Drivers of Health Financial Resource Strain: Low Risk (06/14/2024) Overall Financial Resource Strain (CARDIA) Difficulty of Paying Living Expenses: Not hard at all Transportation Needs: No Transportation Needs (06/14/2024) PRAPARE - Transportation Lack of Transportation (Medical): No Lack of Transportation (Non-Medical): No Family History Adopted: Yes Immunization History Administered Date(s) Administered Pneumococcal Conjugate Vaccine 13 Valent 03/30/2015 Pneumococcal Polysaccharide 23 Valent 12/04/2016 Tdap 01/20/2011 Health Maintenance Topic Date Due Wellness Exam Medicare Never done COVID-19 Vaccine (1) Never done Kidney Health: uACR Never done Zoster (1 of 2) Never done Bone Density Screening Never done DTaP/TDaP/Td (2 - Td or Tdap) 01/20/2021 Lipids 02/08/2021 RSV or 60+ (1 - 1-dose 75+ series) Never done Hemoglobin A1c 03/10/2023 Influenza Vaccine (1) 01/30/2025 Kidney Health: eGFR 11/14/2025 Diabetic Eye Exam 12/19/2026 Hepatitis C Screening Completed Pneumococcal Vaccine 50+ Completed Meningococcal B Vaccine Aged Out Hepatitis B Vaccine Aged Out Colon Cancer Screening Discontinued Patient Care Team: Luis Villasenor MD as PCP - General Amarilis Nolan APRN Additional issues addressed today: Frank continues to be active with Dr. Youngblood for cardiology care, management of INR, on coumadin for afib. She is requesting this medication/dosing management be taken over by this office with use of home health nurse to perform INR checks. She also requests to have IVF infusions at home using her port with home health care when needed for dehydration. She is under palliative care, having stopped cancer treatments earlier this year. She also reports mild skin break down to buttock, requesting refill of previously used topical to treat. Review of Systems Constitutional: Positive for appetite change and fatigue. HENT: Negative. Eyes: Negative for visual disturbance. Respiratory: Negative. Cardiovascular: Negative. Gastrointestinal: Positive for abdominal distention, abdominal pain, nausea and vomiting. Genitourinary: Negative for dysuria. Musculoskeletal: Positive for back pain. Skin: Negative. Neurological: Positive for weakness and light-headedness. Negative for headaches. Psychiatric/Behavioral: Negative for confusion and dysphoric mood. The patient is nervous/anxious. Objective Blood pressure 91/63, pulse 68, temperature 97.8 ??F (36.6 ??C), temperature source Temporal, resp.rate 20, height 5' 4 (1.626 m), weight 202 lb 12.8 oz (92 kg), not currently . Body mass index is 34.81 kg/m??. Physical Exam Vitals reviewed. Constitutional: General: She is not in acute distress. HENT: Mouth/Throat: Mouth: Mucous membranes are moist. Eyes: Conjunctiva/sclera: Conjunctivae normal. Cardiovascular: Rate and Rhythm: Normal rate and regular rhythm. Pulmonary: Effort: Pulmonary effort is normal. Breath sounds: Normal breath sounds. Abdominal: General: Bowel sounds are normal. Palpations: Abdomen is soft. Tenderness: There is generalized abdominal tenderness. Musculoskeletal: Cervical back: Neck supple. Right lower leg: No edema. Left lower leg: No edema. Skin: General: Skin is warm. Coloration: Skin is not jaundiced. Findings: No rash. Neurological: Mental Status: She is alert and oriented to person, place, and time. Psychiatric: Mood and Affect: Mood normal. Thought Content: Thought content normal. Results Results for orders placed or performed in visit on 12/19/24 IRIS DIABETIC RETINOPATHY EXAM Result Value Ref Range Retinopathy Exam Severity NORMAL Right Diabetic Retinopathy None Right Macular Edema None Right Other Retina None Right Eye Image Quality Gradable Image Left Diabetic Retinopathy None Left Macular Edema None Left Other Retina None Left Eye Image Quality Gradable Image Impression Retinal Study Result for jaylon JEFFERS 79 y/o, F (: 1945, ) presented to [facility] on 12-19-2024 for a retinal imaging study of the left and right eyes. Based on the findings of the study, the following is recommended for DESHAWN ROBLERO Normal Study: Return for follow up retina evaluation within 2 years Interpreting Provider's Comments: No comments provided Diagnoses Present: E119 - Type 2 diabetes mellitus without complications Right eye findings: Negative for Diabetic Retinopathy Negative for Macular Edema Left eye findings: Negative for Diabetic Retinopathy Negative for Macular Edema This result was electronically signed by John Hylton MD, , Taxonomy: [id number] 12-19-2024 13:31 [facility]. NOTE: Any pathology noted on this diabetic retinal evaluation should be confirmed by an appropriateophthalmic examination. * Jana Kenney CCMA - 12/19/2024 9:00 AM EDT Jana Bahena CCMA, administered the Iris diabetic retinopathy screening without difficulty. Initial evaluation involved looking at patient eyes to confirm that eyes do not appear red, angry, and/or the cornea appears hazy. Patient was able to adequately dilate pupils naturally for adequate images to be obtained. No dilation drops were necessary. 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 weekly for 36 Occurrences starting 12/22/2024 until 12/22/2025 COMPREHENSIVE METABOLIC PANEL Lab Routine Hyponatremia Type 2 diabetes mellitus without complication, unspecified whether terminal operator insulin use (HCC) Expected: 12/29/2024, Expires: 12/22/2025 documented as of this encounter Goals Goal [...] Procedure Name Priority Date/Time Associated Diagnosis Comments IRIS DIABETIC RETINOPATHY EXAM Routine 12/19/2024 9:25 AM EDT Type 2 diabetes mellitus without complication, unspecified whether terminal operator insulin use (HCC) documented in this encounter Results * IRIS DIABETIC RETINOPATHY EXAM (12/19/2024 9:25 AM EDT) Pathologist [facility] Retinopathy Exam Severity NORMAL [facility] Right Diabetic Retinopathy None [facility] Right Macular Edema None [facility] Right Other Retina None [facility] Right Eye Image Quality Gradable Image [facility] Left Diabetic Retinopathy None [facility] Left Macular Edema None [facility] Left Other Retina None [facility] Left Eye Image Quality Gradable Image [facility] 12/19/2024 9:25 AM EDT 12/19/2024 9:25 AM EDT Impressions [facility] - 12/19/2024 9:31 AM EDT Retinal Study Result for DESHAWN ROBLERO, jaylon 79 y/o, F (: 1945, ) presented to [facility] on 12-19-2024 for a retinal imaging study of the left and right eyes. Based on the findings of the study, the following is recommended for DESHAWN CHAMBERS Normal Study: Return for follow up retina evaluation within 2 years Interpreting Provider's Comments: No comments provided Diagnoses Present: E119 - Type 2 diabetes mellitus without complications Right eye findings: Negative for Diabetic Retinopathy Negative for Macular Edema Left eye findings: Negative for Diabetic Retinopathy Negative for Macular Edema This result was electronically signed by John Hylton MD, , Taxonomy: [id number] on 12-19-2024 13:31 [facility]. NOTE: Any pathology noted on this diabetic retinal evaluation should be confirmed by an appropriate ophthalmic examination. Amarilis Nolan APRN OPHTHALMOLOGY SERVICES OR DERABLES Final Result [facility] [address] [id number] documented in this encounter Visit Diagnoses Diagnosis Medicare annual wellness visit, subsequent- Primary Routine general medical examination at a health care facility Paroxysmal atrial fibrillation (HCC) Atrial fibrillation Malignant tumor of ascending colon (HCC) Malignant neoplasm of ascending colon Hyponatremia Hyposmolality and/or hyponatremia Type 2 diabetes mellitus without complication, unspecified whether terminal operator insulin use (HCC) Skin breakdown Other specified hypertrophic and atrophic condition of skin terminal operator (current) use of anticoagulants Long-term (current) use of anticoagulants documented in this encounter Discontinued Medications Medication Sig Discontinue Reason Start Date End Da te Menthol-Zinc Oxide (CALMOSEPTINE) 0.44-20.6 % Top Ointment Apply 1 application 4 times a day by topical route as needed for 30 days. DELETE- Entered in Error 11/30/2024 12/19/2024 ondansetron (ZOFRAN) 4 mg Oral Tablet Take 2 Tablets by mouth every 6 hours as needed for Nausea for up to 10 days. Medication order 09/26/2024 10/06/2024 ondansetron (ZOFRAN) 4 mg Oral Tablet Take 4 mg by mouth every 6 hours. Reorder 12/19/2024 documented as of this encounter Historical Medications * This list may reflect changes made after this encounter. 2 mg Oral Tablet Take 2 mg by mouth daily. 12/05/2024 rOPINIRole (REQUIP) 0.5 mg Oral Tablet Take 0.5 mg by mouth 3 times daily. NYSTOP Top Powder APPLY TOPICALLY TO THE AFFECTED AEA(S) 2 TIMES A DAY NEEDED 11/30/2024 metoprolol succinate (TOPROL-XL) 50 mg Oral Tablet Sustained Release 24 hr Take 50 mg by mouth nightly. cefdinir (OMNICEF) 300 mg Oral Capsule Take 300 mg by mouth every 12 hours. Menthol-Zinc Oxide (CALMOSEPTINE) 0.44-20.6 % Top Ointment Apply 1 application 4 times a day by topical route as needed for 30 days. 11/30/2024 added in this encounter Additional Health Concerns Assessment Noted Time A fall risk assessment has been complete d for the patient 06/14/2024 9:03 AM EST documented as of this encounter Care Teams Senior Payroll Specialist Relationship Specialty Start Date End Date Luis Villasenor MD [address] [place] [phone] PCP - OBGYN 01/09/10 Luis Villasenor MD [address] [place] [phone] PCP - General 01/09/10 documented as of this encounter
--- OUTSIDE RECORDS SUMMARY | 2024-12-19 09:00 | XMS_ITS | Encounter Summary ---
Author Organization [employer] [place] [address] Care Team Providers Care Door Worker Name Role Phone Luis Villasenor MD Unavailable [phone] Luis Villasenor MD Primary Care Provider Reason for Visit * Reason Comments Medicare Annual Wellness Encounter Details Date Type Department Care Team (Latest Contact Info) Description 12/19/2024 9:00 AM EDT Office Visit [facility] [address] 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 Youngblood, cardiology, [facility] Orders: - PT / INR; Standing Malignant tumor of ascending colon (HCC) (Chronic) Overview: CT scan 01/2023 with multiple masses of liver and ascending colon thickening. 04/2023, R hemicolectomy and anastomosis, pathology of invasive moderately differentiated adenocarcinoma. Metastatic adenocarcinoma in 2/10 lymph nodes. Wedge resection of the liver with metastatic adenocarcinoma consistent with colon primary. Continues with chemotherapy [id number]. Managed by [facility] Orders: - ondansetron (ZOFRAN) 4 mg Oral Tablet; Take 2 Tablets by mouth every 6 hours as needed for Nausea. Dispense: 40 Tablet; Refill: 5 Hyponatremia - ondansetron (ZOFRAN) 4 mg Oral Tablet; Take 2 Tablets by mouth every 6 hours as needed for Nausea. Dispense: 40 Tablet; Refill: 5 Type 2 diabetes mellitus without complication, unspecified whether chcf insulin use (HCC) (Chronic) - IRIS DIABETIC RETINOPATHY EXAM Skin breakdown - Menthol-Zinc Oxide (CALMOSEPTINE) 0.44-20.6 % Top Ointment; Apply 1 mL topically 6 times daily. Dispense: 113 g; Refill: 2 alf (current) use of anticoagulants Overview: Coumadin therapy, [...] visit. If you have a power of consumer attorney orsurrogate, we should also have a [...] and will show as resolved in your [employer] account soon. Health Maintenance Due Topic Date [...] alsoavailable electronically for patients with an active [employer] account per the Federal Cures Act. TheAVS [...] y/o, F (: 1945, ) presented to [facility] on 12-19-2024 for a retinal imaging [...] signed by John Hylton MD, , Taxonomy: [id number] 12-19-2024 13:31 [facility]. 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 Paroxysmal atrial fibrillation [...] INTRAOCULAR LENS; Surgeon: Keith Lynn MD; Location: [facility]; Service: Ophthalmology CATARACT REMOVAL Right 08/03/2013 RIGHT EYE CATARACT EXTRACTION WITH PHACOEMULSIFICATION AND INTRAOCULAR LENS ; Surgeon: Keith Lynn MD; Location: [facility]; Service: Ophthalmology HYSTERECTOMY secondary to uterine [...] Image Impression Retinal Study Result for jaylon JEFFESR 79 y/o, F (: 1945, ) presented to [facility] on 12-19-2024 for a retinal imaging [...] signed by John Hylton MD, , Taxonomy: [id number] 12-19-2024 13:31 [facility]. 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 weekly for 36 Occurrences starting 12/22/2024 until 12/22/2025 COMPREHENSIVE METABOLIC PANEL Lab Routine Hyponatremia Type 2 diabetes mellitus without complication, unspecified whether terminal makeup operator insulin use (HCC) Expected: 12/29/2024, Expires: [...] diabetes mellitus without complication, unspecified whether terminal makeup operator insulin use (HCC) documented in this encounter Results * IRIS DIABETIC RETINOPATHY EXAM (12/19/2024 9:25 AM EDT) Pathologist [facility] Retinopathy Exam Severity NORMAL [facility] Right Diabetic Retinopathy None SE LAB Right Macular Edema None [facility] LAB Right Other Retina None [facility] LAB Right Eye Image Quality Gradable Image [facility] Left Diabetic Retinopathy None [facility] Left Macular Edema None [facility] LAB Left Other Retina None SE LAB Left Eye Image Quality Gradable Image [facility] 12/19/2024 9:25 AM EDT 12/19/2024 9:[address] [facility] - 12/19/2024 9:31 AM EDT Retinal Study Result for DESHAWN ROBLERO, jaylon 79 y/o, F (: 1945, ) presented to [facility] on 12-19-2024 for a retinal imaging [...] signed by John Hylton MD, , Taxonomy: [id number] on 12-19-2024 13:31 [facility]. NOTE: Any pathology noted on this diabetic retinal evaluation should be confirmed by an appropriate ophthalmic examination. Amarilis Nolan APRN OPHTHALMOLOGY SERVICES OR DERABLES Final Result [facility] [address] [phone] documented in this encounter Visit Diagnoses Diagnosis Medicare annual wellness visit, subsequent- Primary Routine general medical examination at a health care facility Paroxysmal atrial fibrillation (HCC) Atrial fibrillation Malignant tumor of ascending colon (HCC) Malignant neoplasm of ascending colon Hyponatremia Hyposmolality and/or hyponatremia Type 2 diabetes mellitus without complication, unspecified whether terminal makeup operator insulin use (HCC) Skin breakdown Other specified hypertrophic and atrophic condition of skin 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
[2024-12-27 17:17] VITALS: BP 96/58; PULSE 107; RESP 14; TEMP 35.8; O2SAT 79; BMI 36.6
--- NOTE | 2024-12-27 17:37 | PC.NURSE ---
Provider spoke to next of kin, Thea. Thea is the daughter of this patient and states that Vicky Roblero would not like anything done medically. @[phone]
--- NOTE | 2024-12-27 17:40 | PC.NURSE ---
SPOKE WITH PT'S DAUGHTER HAYLEE JONES, VERBAL CONSENT GIVEN THAT PT IS DNR/DNI. PT MINIMALLY RESPONSIVE TO PAINFUL STIMULI. VERIFIED WITH PATITO HUBBARD PA-C
--- NOTE | 2024-12-27 17:43 | XR_ITS ---
PROCEDURE INFORMATION: Exam: XR Chest Exam date and time: 12/27/2024 5:56 PM Age: 79 years old Clinical indication: Other: Encephalopathy TECHNIQUE: Imaging protocol: Radiologic exam of the chest. Views: 1 view. COMPARISON: CR XR CHEST PORTABLE 12/12/2024 1:37 PM FINDINGS: Tubes, catheters and devices: Right IJ MediPort catheter over the SVC. Lungs: Left lung infiltrate. Pleural spaces: Unremarkable. No pleural effusion. No pneumothorax. Heart/Mediastinum: Unremarkable. No cardiomegaly. Bones/joints: Unremarkable. IMPRESSION: 1. Left lung infiltrate. 2. Right IJ MediPort catheter over the SVC.
--- OUTSIDE RECORDS SUMMARY | 2024-12-27 17:49 | XMS_ITS | Encounter Summary ---
Author Organization [place] [address] Care Team Providers Care Materials Coordinator Name Role Phone Luis Villasenor MD Unavailable [phone] Luis Villasenor MD Primary Care Provider Encounter Details Date Type Department Care Team (Late Contact Info) Description 11/11/2024 Orders Only SEP Sarah [address] [place] [id number] Amarilis Nolan, LAMP SHADE MAKER [address] [place] [address] Flank pain (Primary Dx); Blood loss; [...] 3:44 PM EDT [facility] Moody Percent 8.3 % 11/14/2024 3:44 PM EDT [facility] Eos Percent 3.5 % 11/14/2024 3:44 PM EDT [facility] Baso Percent 0.6 % 11/14/2024 3:44 PM EDT [facility] Neut # 7.7(H) 1.6 - 6.1 x10(3)/mcL 11/14/2024 3:44 PM EDT [facility] Comment:Neutrophils equals s egs plus bands IMMGRAN# 0.1 0.0 - 0.1 x10(3)/[facility] 11/14/2024 3:44 PM EDT [facility] Comment:Automated count of m etamyelocytes, myelocytes and promyelocytes. An absolute IG <0.1 is reported as 0.0. Lymph # 1.0(L) 1.2 - 3.9 x10(3)/[facility] 11/14/2024 3:44 PM EDT [facility] Moody # 0.8 0.3 - 0.9 x10(3)/[facility] 11/14/2024 3:44 PM EDT [facility] Eos# 0.4 0.0 - 0.5 x10(3)/[facility] 11/14/2024 3:44 PM EDT [facility] Baso # 0.1 0.0 - 0.1 x10(3)/[facility] 11/14/2024 3:44 PM EDT [facility] Blood VENOUS BLOOD / Unknown Venipuncture / Unknown 11/14/2024 10:07 AM EDT 11/14/2024 10:07 AM EDT Amarilis Nolan LAMP SHADE MAKER HEMATOLOGY ORDERABLES Fin al Result [facility] [address] [facility] [facility] [address] , [place] [address] * (ABNORMAL) COMPREHENSIVE METABOLIC PANEL (11/14/2024 10:07 AM EDT) Sodium 133(L) 136 - 145 mmol/L 11/14/2024 4:07 PM EDT [facility] Potassium 4.5 3.5 - 5.0 mmol/L 11/14/2024 4:07 PM EDT [facility] Chloride 94(L) 98 - 107 mmol/L 11/14/2024 4:07 PM EDT [facility] Total CO2 29 22 - 29 mmol/L 11/14/2024 4:07 PM EDT [facility] Anion Gap 10 7 - 16 mmol/L 11/14/2024 4:07 PM EDT [facility] Calcium 9.2 8.8 - 10.4 [...] EDT [facility] AST 23 <=40 U/L 11/14/2024 4:07 PM EDT [facility] Alk Phos 465(H) 36 - 123 U/L 11/14/2024 4:07 PM EDT [facility] eGFR (CKD-EPIcr 2020) 39(L) >=60 mL/min/1.7 3 m2 11/14/2024 4:07 PM EDT [facility] Comment:Estimated GFR was ca lculated using the CKD-EPIcr (2020) equation refit without race. The equation is recommended by the National Kidney Foundation - [place] [employer] Neph[employer] Task Force. Blood VENOUS BLOOD / Unknown Venipuncture / Unknown 11/14/2024 10:07 AM EDT 11/14/2024 10:07 AM EDT us Amarilis Nolan LAMP SHADE MAKER CHEMISTRY ORDERABLES Kell orlando Result [facility] [address] , [address] [place], [place] [id number] documented in this encounter Visit Diagnoses Diagnosis Flank pain- Primary Abdominal pain, unspecified site Blood loss Hemorrhage, unspecified Dehydration documented in this encounter Additional Health Concerns Assessment Noted Time A fall risk assessment has been complete d for the patient 06/14/2024 9:03 AM EST documented as of this encounter Care Teams Materials Coordinator Relationship Specialty Start Date End Date Luis Villasenor MD [address] [place] [phone] PCP - OBGYN 01/09/10 Luis Villasenor MD [address] [place] [phone] PCP - General 01/09/10 documented as of this encounter
--- OUTSIDE RECORDS SUMMARY | 2024-12-27 17:49 | XMS_ITS | Encounter Summary ---
Author Organization [place] [address] Care Team Providers Care Office Analyst Name Role Phone Luis Villasenor MD Unavailable [phone] Luis Villasenor MD Primary Care Provider Encounter Details Date Type Department Care Team (Late Contact Info) Description 11/30/2024 Orders Only SEP Sarah [address] [place], [id number] Pau Gray, A [address] [place] [address] 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 due to chronic blood [...] documented as of this encounter Care Teams Office Analyst Relationship Specialty Start Date End Date Luis Villasenor MD [address] [place] [phone] PCP - OBGYN 01/09/10 Luis Villasenor MD [address] [place] [phone] PCP - General 01/09/10 documented as of this encounter
--- OUTSIDE RECORDS SUMMARY | 2024-12-27 17:49 | XMS_ITS | Encounter Summary ---
Author Organization [place] [address] Care Team Providers Care Graphic Production Artist Name Role Phone Luis Villasenor MD Unavailable [phone] Luis Villasenor MD Primary Care Provider Reason for Visit * Reason Onset Date Comments Orders 09/30/2024 SN,verbal Encounter Details Date Type Department Care Team (Late Contact Info) Description 09/30/2024 Telephone SEP Sarah [facility] [place] [address] Luis Villasenor MD [address] [facility] [place] [address] Orders (SN,verbal ) Social History Tobacco [...] name: Ivis) What Orders are being requested: Fdc Reason Orders are Needed (Diagnosis): increase frequency for more education Is a verbal order being requested: Yes If non-[facility], where should the order be faxed [...] documented as of this encounter Care Teams Graphic Production Artist Relationship Specialty Start Date End Date Luis Villasenor MD [address] [place], [place] [address] PCP - OBGYN 01/09/10 Luis Villasenor MD [address] [place] [phone] PCP - General 01/09/10 documented as of this encounter
--- OUTSIDE RECORDS SUMMARY | 2024-12-27 17:49 | XMS_ITS | Encounter Summary ---
Author Organization [place] [address] Care Team Providers Care Food Order Expediter Name Role Phone Luis Villasenor MD Unavailable [phone] Luis Villasenor MD Primary Care Provider Reason for Visit * Reason Onset Date Comments 911/Red Flag 09/19/2024 possible blood c lot Encounter Details Date Type Department Care Team (Late st Contact Info) Description 09/19/2024 Nurse Triage SEP Sarah [facility] [address] Luis Villasenor MD [address] [facility] [place] [address] Peripheral edema (Primary Dx) Social History [...] 025 9:13 AM EDT) No Nyla, Grace, RELIGION PROFESSOR Maintain a healthy diet, exercise regularly and [...] documented as of this encounter Care Teams Food Order Expediter Relationship Specialty Start Date End Date Luis Villasenor MD [address] [facility] [place] [address] PCP - OBGYN 01/09/10 Luis Villasenor MD [address] [facility] [place] [address] PCP - General 01/09/10 documented as of this encounter
--- OUTSIDE RECORDS SUMMARY | 2024-12-27 17:49 | XMS_ITS | Encounter Summary ---
Author Organization [place] [address] Care Team Providers Care Manager Public Name Role Phone Luis Villasenor MD Unavailable [phone] Luis Villasenor MD Primary Care Provider Reason for Visit * Reason Onset Date Comments Follow Up 12/01/2024 Need diagnosis c ode on infusion order - ok to handwrite on order - please fax to [phone] Encounter Details Date Type Department Care Team (Late st Contact Info) Description 12/01/[address] [facility] [place] [address] Luis Villasenor MD [address] [facility] [place] [address] Follow Up (Need diagnosis code on infusion order - ok to handwrite on order - please fax to [phone]) Social History Tobacco Use Types Packs/Day Years [...] message: Follow Up Follow Up Who is Calling:[facility] (include which hospital and caller's name) What is the caller following up on (make sure to reference any prior documentation/encounter):Need diagnosis code on infusion order - ok to handwrite on order - please fax to [phone]. Further follow-up needed?:Yes Return Method of Communication:Phone call Additional Information:N/A Fax number [phone]. Thank you. documented in this encounter Plan [...] as of this encounter Care Teams Manager Public Relationship Specialty Start Date End Date Luis Villasenor MD [address] [place] [phone] PCP - OBGYN 01/09/10 Luis Villasenor MD [address] [place] [phone] PCP - General 01/09/10 documented as of this encounter
--- OUTSIDE RECORDS SUMMARY | 2024-12-27 17:49 | XMS_ITS | Encounter Summary ---
Author Organization [place] [address] Care Team Providers Care Honest John Rocket Crew Member Name Role Phone Luis Villasenor MD Unavailable [phone] Luis Villasenor MD Primary Care Provider Reason for Visit * Reason Onset Date Comments Orders 10/07/2024 VO for OT Encounter Details Date Type Department Care Team (Late Contact Info) Description 10/07/2024 Telephone SEP Sarah [facility] [place] [address] Luis Villasenor MD [address] [facility] [place] [address] Orders (VO for OT) Social History [...] order being requested: Yes If non-[facility], where should the order be [...] documented as of this encounter Care Teams Honest John Rocket Crew Member Relationship Specialty Start Date End Date Luis Villasenor MD [address] [place] [phone] PCP - OBGYN 01/09/10 Luis Villasenor MD [address] [place] [phone] PCP - General 01/09/10 documented as of this encounter
--- OUTSIDE RECORDS SUMMARY | 2024-12-27 17:49 | XMS_ITS | Encounter Summary ---
Author Organization [place] [address] Care Team Providers Care Air Deodorizer Servicer Name Role Phone Luis Villasenor MD Unavailable [phone] Luis Villasenor MD Primary Care Provider [phone] Encounter Details Date Type Department Care Team (Late Contact Info) Description 12/19/2024 Results Follow-Up SEP [address] [place] [address] Charlotte Mccann RN IRIS DIABETIC RETINOPATHY EXAM [...] results received, patient notified by: Contacted by [employer] message documented in this encounter Plan of [...] as of this encounter Care Teams Air Deodorizer Servicer Relationship Specialty Start Date End Date Luis Villasenor MD [address] [place] [phone] PCP - OBGYN 01/09/10 Luis Villasenor MD [address] [place] [phone] PCP - General 01/09/10 documented as of this encounter
--- OUTSIDE RECORDS SUMMARY | 2024-12-27 17:49 | XMS_ITS | Encounter Summary ---
Author Organization [place] [address] Care Team Providers Care Credit Rating Inspector Name Role Phone Luis Villasenor MD Unavailable [phone] Luis Villasenor MD Primary Care Provider [phone] Reason for Visit * Reason Onset Date Comments Relaying Information 10/26/2024 Reporting n ew issues with pain. Encounter Details Date Type Department Care Team (Late st Contact Info) Description 10/26/2024 Telephone SEP Sarah [facility] [address] [address] Luis Villasenor MD [facility] [phone] Relaying Information (Reporting new issues with [...] documented as of this encounter Care Teams Credit Rating Inspector Relationship Specialty Start Date End Date Luis Villasenor MD [address] [facility] [place] [phone] PCP - OBGYN 01/09/10 Luis Villasenor MD [address] [facility] [place] [phone] PCP - General 01/09/10 documented as of this encounter
--- OUTSIDE RECORDS SUMMARY | 2024-12-27 17:49 | XMS_ITS | Encounter Summary ---
Author Organization [place] [address] Care Team Providers Care Corporate Tax Manager Name Role Phone Luis Villasenor MD Unavailable [phone] Luis Villasenor MD Primary Care Provider Reason for Visit * Reason Onset Date Comments Orders 09/22/2024 personal touch [facility] care Encounter Details Date Type Department Care Team (Late st Contact Info) Description 09/22/[address] [facility] [place] [address] Luis Villasenor MD [address] [facility] [place] [address] Orders (personal touch home care) Social [...] a verbal order being requested: Yes If non-[facility], where should the order be [...] documented as of this encounter Care Teams Corporate Tax Manager Relationship Specialty Start Date End Date Luis Villasenor MD [address] [place] [phone] PCP - OBGYN 01/09/10 Luis Villasenor MD [address] [place] [phone] PCP - General 01/09/10 documented as of this encounter
--- OUTSIDE RECORDS SUMMARY | 2024-12-27 17:49 | XMS_ITS | Continuity of Care Document ---
Author Organization [facility] Address [address] [place] [address] Care Team Providers Care Field Reporter Name Role Phone ADDY GONZALES General Surgeon CARLOS A COATS Primary Care Provider [phone] VERONIKA RIVER Java Sql Developer Assessment No assessment recorded. Plan of Treatment Reminders Order Date Submit Date Provider Last Modified By Organization Details Last Modified Time Details Appointments OV EST 15 2024 10:30A M Tomy King MD Not available Not available Not available Lab carcinoem bryonic Ag, quant, serum or plasma 2024 025 [facility], [address] [place], [address], 12/07/2024 08:57:02 CMP, serum or plasma 2024 025 ISABEL [facility], [address] [place], [address], 11/30/2024 13:45:48 CBC w/ diff 2024 025 [email or web address] [facility], [address] [place], [address], 12/07/2024 08:57:02 Referral None recorded. Procedures None recorded. Surgeries None recorded. Imaging None recorded. Medication Orders None recorded. Patient TargetsNo targets recorded. Patient InstructionsNo instructions recorded. Reason for Referral None Reported. Results Created Date Observation Date Name Description Value Unit Range Abnormal Flag Note LastModifiedBy Organization Detail LastModifiedTime 11/02/19 25 11/01/2024 CBC AUTO W DIFF WBC 6.7 K/uL 4.0-10 .5 Not Available [facility] ([facility]) [address], [place], [address], 11/01/2024 15:32:39 11/02/19 25 11/01/2024 CBC AUTO W DIFF RBC 3.2 M/mm3 4.2-6. 4 low Not Available [facility] ([facility]) [address], [place], [address], 11/01/2024 15:32:39 11/02/19 25 11/01/2024 CBC AUTO W DIFF HGB 9.0 gm/dL 12.5-1 6.0 low Not Available [facility] ([facility]) [address] , [place], [address], 11/01/2024 15:32:39 11/02/19 25 11/01/2024 CBC AUTO W DIFF HCT 28.9 % 37.0-4 7.0 low Not Available [facility] ([facility]) [address] , [place], [address], 11/01/2024 15:32:39 11/02/19 25 11/01/2024 CBC AUTO W DIFF MCV 90.9 fL 78-100 Not Available [facility] ([facility]) [address] , [place], [address], 11/01/2024 15:32:39 11/02/19 25 11/01/2024 CBC AUTO W DIFF MCH 28.3 pg 27-31 Not Available [facility] ([facility]) [address] , [place], [address], 11/01/2024 15:32:39 11/02/19 25 11/01/2024 CBC AUTO W DIFF MCHC 31.1 g/dL 32-36 low Not Available [facility] ([facility]) [address], [place], [address], 11/01/2024 15:32:39 11/02/19 25 11/01/2024 CBC AUTO W DIFF RDW 14.5 % 11.5-1 4.0 high Not Available [facility] ([facility]) [address], [place], [address], 11/01/2024 15:32:39 11/02/19 25 11/01/2024 CBC AUTO W DIFF platelet count 257 K/uL 150-45 0 Not Available [facility] ([facility]) [address], [place], [address], 11/01/2024 15:32:39 11/02/19 25 11/01/2024 CBC AUTO W DIFF MPV 9.6 fL 6-9.5 high Not Available [facility] ([facility]) [address] , [place], [address], 11/01/2024 15:32:39 11/02/19 25 11/01/2024 CBC AUTO W DIFF neutrophil% 75.3 % 43-65 high Not Available [facility] ([facility]) [address], [place], [address], 11/01/2024 15:32:39 11/02/19 25 11/01/2024 CBC AUTO W DIFF lymphocyte% 13.9 % 20.5-4 5.5 low Not Available [facility] ([facility]) [address] , [place], [address], 11/01/2024 15:32:39 11/02/19 25 11/01/2024 CBC AUTO W DIFF monocyte% 7.5 % 5.5-11 .7 Not Available [facility] ([facility]) [address] [place], [address], 11/01/2024 15:32:39 11/02/19 25 11/01/2024 CBC AUTO W DIFF eosinophil% 2.2 % 0.9-2. 9 Not Available [facility] ([facility]) [address] [place], [address], 11/01/2024 15:32:39 11/02/19 25 11/01/2024 CBC AUTO W DIFF basophil% 0.4 % 0.2-1. 0 Not Available [facility] ([facility]) [address] [place], [address], 11/01/2024 15:32:39 11/02/19 25 11/01/2024 CBC AUTO W DIFF immature granulocytes % 0.7 % 0.0-0. 8 Not Available [facility] ([facility]) [address] [place], [address], 11/01/2024 15:32:39 11/02/19 25 11/01/2024 CBC AUTO W DIFF nucleated red blood cells % 0.0 % Not Available [facility] ([facility]) [address] [place], [address], 11/01/2024 15:32:39 11/02/19 25 11/01/2024 CBC AUTO W DIFF neutrophil# 5.0 K/uL 2.2-4. 8 high Not Available [facility] ([facility]) [address] [place], [address], 11/01/2024 15:32:39 11/02/19 25 11/01/2024 CBC AUTO W DIFF lymphocyte# 0.9 cell/ mcL 1.3-2. 9 low Not Available [facility] ([facility]) [address] [place], [address], 11/01/2024 15:32:39 11/02/19 25 11/01/2024 CBC AUTO W DIFF monocyte# 0.5 cell/ mcL 0.3-0. 8 Not Available [facility] ([facility]) [address] [place], [address], 11/01/2024 15:32:39 11/02/19 25 11/01/2024 CBC AUTO W DIFF eosinophil# 0.2 cell/ mcL 0-0.2 Not Available [facility] ([facility]) [address], [place], [address], 11/01/2024 15:32:39 11/02/19 25 11/01/2024 CBC AUTO W DIFF basophil# 0.0 cell/ mcL 0.0-1. 0 Not Available [facility] ([facility]) [address] , [place], [address], 11/01/2024 15:32:39 11/02/19 25 11/01/2024 CBC AUTO W DIFF immature gramulocytes # 0.05 K/uL Not Available [facility] ([facility]) [address] , [place], [address], 11/01/2024 15:32:39 11/02/19 25 11/01/2024 CBC AUTO W DIFF nucleated red blood cells # 0.00 K/uL Not Available [facility] ([facility]) [address] , [place], [address], 11/01/2024 15:32:39 11/02/19 25 11/01/2024 CBC AUTO W DIFF manual differential NO Not Available [facility] ([facility]) [address] , [place], [address], 11/01/2024 15:32:39 11/02/19 25 11/01/2024 COMP METAB OLIC PANEL sodium 139 mmol/ L 136-14 5 Not Available [facility] ([facility]) [address] , [place], [address], 11/01/2024 15:54:32 11/02/19 25 11/01/2024 COMP METAB OLIC PANEL potassium 3.6 mmol/ L 3.6-5. 0 Not Available [facility] ([facility]) [address], [place], [address], 11/01/2024 15:54:32 11/02/19 25 11/01/2024 COMP METAB OLIC PANEL chloride 103 mmol/ L 98-107 Not Available [facility] ([facility]) [address], [place], [address], 11/01/2024 15:54:32 11/02/19 25 11/01/2024 COMP METAB OLIC PANEL carbon dioxide 27.8 mmol/ L 21.0-3 2.0 Not Available [facility] ([facility]) [address], [place], [address], 11/01/2024 15:54:32 11/02/19 25 11/01/2024 COMP METAB OLIC PANEL anion gap 11.8 Not Available [facility] ([facility]) [address], [place], [address], 11/01/2024 15:54:32 11/02/19 25 11/01/2024 COMP METAB OLIC PANEL glucose 112 mg/dL 70-120 Not Available [facility] ([facility]) [address] , [place], [address], 11/01/2024 15:54:32 11/02/19 25 11/01/2024 COMP METAB OLIC PANEL BUN 9 mg/dL 7-18 Not Available [facility] ([facility]) [address] , [place], [address], 11/01/2024 15:54:32 11/02/19 25 11/01/2024 COMP METAB OLIC PANEL creatinine 1.1 mg/dL 0.6-1. 3 Not Available [facility] ([facility]) [address] [place], [address], 11/01/2024 15:54:32 11/02/19 25 11/01/2024 COMP METAB [...] albrecht ing kiney funct ion. Not Available [facility] ([facility]) [address] , [place], [address], 11/01/2024 15:54:32 11/02/19 25 11/01/2024 COMP METAB OLIC PANEL osmolality (calculated) 289 mOsm/ kg 275-30 1 OSMOL ALITY IS A CALCU LATIO N UTILI ZING THE SERUM /PLAS MA SODIU M, GLUCO SE AND UREA NITRO GEN (BUN) LEVEL S. FOR THE MOST ACCUR ATE RESUL T A MEASU RED SERUM OSMOL ALITY IS SUGTASHA PALM. Not Available [facility] ([facility]) [address] , [place], [address], 11/01/2024 15:54:32 11/02/19 25 11/01/2024 COMP METAB OLIC PANEL total protein 6.5 g/dL 6.4-8. 2 Not Available [facility] ([facility]) [address] , [place], [address], 11/01/2024 15:54:32 11/02/19 25 11/01/2024 COMP METAB OLIC PANEL albumin 2.2 g/dL 3.4-5. 0 low Not Available [facility] ([facility]) [address], [place], [address], 11/01/2024 15:54:32 11/02/19 25 11/01/2024 COMP METAB OLIC PANEL globulin 4.3 Not Available [facility] ([facility]) [address] , [place], [address], 11/01/2024 15:54:32 11/02/19 25 11/01/2024 COMP METAB OLIC PANEL alb/glob ratio 0.5 0.7-2 low Not Available [facility] ([facility]) [address], [place], [address], 11/01/2024 15:54:32 11/02/19 25 11/01/2024 COMP METAB OLIC PANEL calcium 8.5 mg/dL 8.5-10 .5 Not Available [facility] ([facility]) [address], [place], [address], 11/01/2024 15:54:32 11/02/19 25 11/01/2024 COMP METAB OLIC PANEL bilirubin total 0.40 mg/dL 0.10-1 .00 Not Available [facility] ([facility]) [address], [place], [address], 11/01/2024 15:54:32 11/02/19 25 11/01/2024 COMP METAB OLIC PANEL AST (SGOT) 33 U/L 0-37 Not Available [facility] ([facility]) [address], [place], [address], 11/01/2024 15:54:32 11/02/19 25 11/01/2024 COMP METAB OLIC PANEL ALT (SGPT) 11 U/L 0-65 Not Available [facility] ([facility]) [address], [place], [address], 11/01/2024 15:54:32 11/02/19 25 11/01/2024 COMP METAB OLIC PANEL alk phosphatase 327 U/L 46-116 high Not Available [facility] ([facility]) [address], [place], [address], 11/01/2024 15:54:32 11/02/1911/03/2024 CEA cea 86.4 NG/mL [...] of [facility] se. Perfo rmed at: [facility] [address], [place] [address] Lab Direc tor: Tate staton PhD, Phone : [phone] Not Available [facility] ([facility]) [address] [facility], [place], [address], 11/03/2024 13:11:48 12/01/19 25 11/30/2024 CBC AUTO W DIFF WBC 9.0 K/uL 4.0-10 .5 Not Available [facility] ([facility]) [address] [facility] [facility], [place], [address], 11/30/2024 13:41:32 12/01/19 25 11/30/2024 CBC AUTO W DIFF RBC 3.7 M/mm3 4.2-6. 4 low Not Available [facility] ([facility]) [address] [place], [address], 11/30/2024 13:41:32 12/01/19 25 11/30/2024 CBC AUTO W DIFF HGB 10.2 gm/dL 12.5-1 6.0 low Not Available [facility] ([facility]) [address] [place], [address], 11/30/2024 13:41:32 12/01/19 25 11/30/2024 CBC AUTO W DIFF HCT 32.3 % 37.0-4 7.0 low Not Available [facility] ([facility]) [address], [place], [address], 11/30/2024 13:41:32 12/01/19 25 11/30/2024 CBC AUTO W DIFF MCV 86.8 fL 78-100 Not Available [facility] ([facility]) [address], [place], [address], 11/30/2024 13:41:32 12/01/19 25 11/30/2024 CBC AUTO W DIFF MCH 27.4 pg 27-31 Not Available [facility] ([facility]) [address], [place], [address], 11/30/2024 13:41:32 12/01/19 25 11/30/2024 CBC AUTO W DIFF MCHC 31.6 g/dL 32-36 low Not Available [facility] ([facility]) [address] , [place], [address], 11/30/2024 13:41:32 12/01/19 25 11/30/2024 CBC AUTO W DIFF RDW 14.4 % 11.5-1 4.0 high Not Available [facility] ([facility]) [address] , [place], [address], 11/30/2024 13:41:32 12/01/19 25 11/30/2024 CBC AUTO W DIFF platelet count 260 K/uL 150-45 0 Not Available [facility] ([facility]) [address], [place], [address], 11/30/2024 13:41:32 12/01/19 25 11/30/2024 CBC AUTO W DIFF MPV 9.6 fL 6-9.5 high Not Available [facility] ([facility]) [address], [place], [address], 11/30/2024 13:41:32 12/01/19 25 11/30/2024 CBC AUTO W DIFF neutrophil% 72.3 % 43-65 high Not Available [facility] ([facility]) [address] [place], [address], 11/30/2024 13:41:32 12/01/19 25 11/30/2024 CBC AUTO W DIFF lymphocyte% 14.6 % 20.5-4 5.5 low Not Available [facility] ([facility]) [address] [place], [address], 11/30/2024 13:41:32 12/01/19 25 11/30/2024 CBC AUTO W DIFF monocyte% 8.1 % 5.5-11 .7 Not Available [facility] ([facility]) [address] [place], [address], 11/30/2024 13:41:32 12/01/19 25 11/30/2024 CBC AUTO W DIFF eosinophil% 3.6 % 0.9-2. 9 high Not Available [facility] ([facility]) [address] [place], [address], 11/30/2024 13:41:32 12/01/19 25 11/30/2024 CBC AUTO W DIFF basophil% 0.7 % 0.2-1. 0 Not Available [facility] ([facility]) [address] [place], [address], 11/30/2024 13:41:32 12/01/19 25 11/30/2024 CBC AUTO W DIFF immature granulocytes % 0.7 % 0.0-0. 8 Not Available [facility] ([facility]) [address] [place], [address], 11/30/2024 13:41:32 12/01/19 25 11/30/2024 CBC AUTO W DIFF nucleated red blood cells % 0.0 % Not Available [facility] ([facility]) [address] [place], [address], 11/30/2024 13:41:32 12/01/19 25 11/30/2024 CBC AUTO W DIFF neutrophil# 6.5 K/uL 2.2-4. 8 high Not Available [facility] ([facility]) [address], [place], [address], 11/30/2024 13:41:32 12/01/19 25 11/30/2024 CBC AUTO W DIFF lymphocyte# 1.3 cell/ mcL 1.3-2. 9 Not Available [facility] ([facility]) [address] [facility], [place], [address], 11/30/2024 13:41:32 12/01/19 25 11/30/2024 CBC AUTO W DIFF monocyte# 0.7 cell/ mcL 0.3-0. 8 Not Available [facility] ([facility]) [address] [facility], [place], [address], 11/30/2024 13:41:32 12/01/19 25 11/30/2024 CBC AUTO W DIFF eosinophil# 0.3 cell/ mcL 0-0.2 high Not Available [facility] ([facility]) [address] [facility], [place], [address], 11/30/2024 13:41:32 12/01/19 25 11/30/2024 CBC AUTO W DIFF basophil# 0.1 cell/ mcL 0.0-1. 0 Not Available [facility] ([facility]) [address] [place], [address], 11/30/2024 13:41:32 12/01/19 25 11/30/2024 CBC AUTO W DIFF immature gramulocytes # 0.06 K/uL Not Available [facility] ([facility]) [address] [place], [address], 11/30/2024 13:41:32 12/01/19 25 11/30/2024 CBC AUTO W DIFF nucleated red blood cells # 0.00 K/uL Not Available [facility] ([facility]) [address], [place], [address], 11/30/2024 13:41:32 12/01/19 25 11/30/2024 CBC AUTO W DIFF manual differential NO Not Available [facility] ([facility]) [address], [place], [address], 11/30/2024 13:41:32 12/01/19 25 11/30/2024 COMP METAB OLIC PANEL sodium 129 mmol/ L 136-14 5 low Not Available [facility] ([facility]) [address], [place], [address], 11/30/2024 13:45:48 12/01/19 25 11/30/2024 COMP METAB OLIC PANEL potassium 4.8 mmol/ L 3.6-5. 0 Not Available [facility] ([facility]) [address], [place], [address], 11/30/2024 13:45:48 12/01/19 25 11/30/2024 COMP METAB OLIC PANEL chloride 93 mmol/ L 98-107 low Not Available [facility] ([facility]) [address], [place], [address], 11/30/2024 13:45:48 12/01/19 25 11/30/2024 COMP METAB OLIC PANEL carbon dioxide 25.2 mmol/ L 21.0-3 2.0 Not Available [facility] ([facility]) [address], [place], [address], 11/30/2024 13:45:48 12/01/19 25 11/30/2024 COMP METAB OLIC PANEL anion gap 15.6 Not Available [facility] ([facility]) [address] , [place], [address], 11/30/2024 13:45:48 12/01/19 25 11/30/2024 COMP METAB OLIC PANEL glucose 110 mg/dL 70-120 Not Available [facility] ([facility]) [address], [place], [address], 11/30/2024 13:45:48 12/01/19 25 11/30/2024 COMP METAB OLIC PANEL BUN 38 mg/dL 7-18 high Not Available [facility] ([facility]) [address], [place], [address], 11/30/2024 13:45:48 12/01/19 25 11/30/2024 COMP METAB OLIC PANEL creatinine 2.6 mg/dL 0.6-1. 3 high Not Available [facility] ([facility]) [address], [place], [address], 11/30/2024 13:45:48 12/01/19 25 11/30/2024 COMP METAB [...] albrecht ing kiney funct ion. Not Available [facility] ([facility]) [address], [place], [address], 11/30/2024 13:45:48 12/01/19 25 11/30/2024 COMP METAB OLIC PANEL osmolality (calculated) 279 mOsm/ kg 275-30 1 OSMOL ALITY IS A CALCU LATIO N UTILI ZING THE SERUM /PLAS MA SODIU M, GLUCO SE AND UREA NITRO GEN (BUN) LEVEL S. FOR THE MOST ACCUR ATE RESUL T A MEASU RED SERUM OSMOL ALITY IS SUGGE STED. Not Available [facility] ([facility]) [address], [place], [address], 11/30/2024 13:45:48 12/01/19 25 11/30/2024 COMP METAB OLIC PANEL total protein 8.4 g/dL 6.4-8. 2 high Not Available [facility] ([facility]) [address], [place], [address], 11/30/2024 13:45:48 12/01/19 25 11/30/2024 COMP METAB OLIC PANEL albumin 2.6 g/dL 3.4-5. 0 low Not Available [facility] ([facility]) [address], [place], [address], 11/30/2024 13:45:48 12/01/19 25 11/30/2024 COMP METAB OLIC PANEL globulin 5.8 Not Available [facility] ([facility]) [address], [place], [address], 11/30/2024 13:45:48 12/01/19 25 11/30/2024 COMP METAB OLIC PANEL alb/glob ratio 0.4 0.7-2 low Not Available [facility] ([facility]) [address], [place], [address], 11/30/2024 13:45:48 12/01/19 25 11/30/2024 COMP METAB OLIC PANEL calcium 9.5 mg/dL 8.5-10 .5 Not Available [facility] ([facility]) [address], [place], [address], 11/30/2024 13:45:48 12/01/19 25 11/30/2024 COMP METAB OLIC PANEL bilirubin total 0.80 mg/dL 0.10-1 .00 Not Available [facility] ([facility]) [address] [facility], [place], [address], 11/30/2024 13:45:48 12/01/19 25 11/30/2024 COMP METAB OLIC PANEL AST (SGOT) 111 U/L 0-37 high Not Available [facility] ([facility]) [address] [facility], [place], [address], 11/30/2024 13:45:48 12/01/19 25 11/30/2024 COMP METAB OLIC PANEL ALT (SGPT) 20 U/L 0-65 Not Available [facility] ([facility]) [address], [place], [address], 11/30/2024 13:45:48 12/01/19 25 11/30/2024 COMP METAB OLIC PANEL alk phosphatase 490 U/L 46-116 high Not Available [facility] ([facility]) [address] [facility], [place], [address], 11/30/2024 13:45:48 12/01/19 25 12/01/2024 CEA cea [...] se. Perfo rmed at: [facility] [address] [place] [address] Lab Direc tor: Tate staton PhD, Phone : [phone] Not Available [facility] ([facility]) [address] [facility], [place], [address], 12/01/2024 11:12:48 Result Notes None recorded. Problems Name Problem SNOMED Code Status Onset Date Resolution Date Notes Provider Name and Address Organization Details Recorded Time Metastatic malignant neoplasm to liver 46855371 Active 2022 Ghassan Lieberman PA-C [address] , [place], [address] , [place] [facility] & [place] 3 14:27:25 Mass of colon 634320687 Active 2022 Ghassan Lieberman PA-C [address] , [place], [address] , [place] [facility] [place] 3 14:27:30 Anemia 358137267 Active 2022 Ghassan Lieberman PA-C [address] , [place], [address] , [place] [facility] [place] 3 14:27:36 Nausea and vomiting 97177075 Active 2022 Ghassan Lieberman PA-C [address] , [place], [address] , [place] [facility] & [place] 3 14:27:46 Unintentional weight loss 617697523 Active 2022 Ghassan Lieberman PA-C [address] , [place], [address] , [place] [facility] [place] 3 16:13:07 Night sweats 05319171 Active 2022 Ghassan Lieberman PA-C [address] [facility], [place], [address] , [place] [facility] [place] 3 16:13:12 Headache 64277842 Active 2024 Christine Farfan [facility], [place] - [facility] & [place] 5 10:27:12 Problem Notes Documentation Provider Name and Address Organization Details Recorded Time Oncology Patient Navigator : ONN met with pt accompanied by daughter at [facility] with medical oncology. Pt is slurring her speech, seems forgetful, and nodding off during conversations. Pt daughter is a little concerned about pt but states overall she is doing well but has declined since last week. Pt denies any questions/concerns at this time. ONN encouraged pt to reach out may any needs/cooncerns arise. Christine yusuf, [facility] & [place] 11/30/2024 15:38:04 Procedures Surgical History Date Name Laterality Status Provider Name and Address Organization Details Recorded Time 04/29/20 23 Venipuncture completed Hanna Snider PA-C [address] [facility], [place], [address], [facility] & [place] 04/27/2023 15:05:29 04/15/20 23 Venipuncture completed Stephanie Maravilla [facility] & [place] 04/15/2023 15:24:55 hysterectomy completed Laurel Samuels [facility] & [place] 03/11/2023 15:30:22 extraction of cataract completed Laurel Samuels [facility] & [place] 03/11/2023 15:30:36 excision of colon completed Loree Tadeo [facility] & [place] 04/21/2023 11:32:07 Imaging Results None recorded. Procedure Notes None recorded. Medical Equipment None Reported. Allergies Allergen ID Allergen Name Allergen Category Reaction Reaction Severity Criticality Documentation Date Start Date Code Code System Note Provider Name and Address Organization Details Recorded Time 91088 tetracycl ine medicatio n hives Not available high 02/19/2023 85658 RxNorm Brandy yusuf, [facility] & [place] 14:03:33 Medications Name Sig Start Date Stop [...] No t Available promethazin e 25 mg rectal suppository Insert 1 supposito ry every 8 hours by rectal route as needed. 2024 active Not Available [...] mg-acetamin ophen 325 mg tablet TAKE 1 TO 2 TABLETS BY MOUTH ONCE EVERY 4 TO 6 HOURS NEEDED FOR [...] Not Available Not Available Not Available morphine 10 mg/5 mL oral solution Take 5 mL every 4-6 hours by oral route as needed. 2024 active Not Available Not Available Not Avai lable folic acid 1 mg tablet TAKE 1 [...] tablet DISSOLVE 1 TABLET ON TONGUE EVERY 6-8 HOURS NEEDED FOR NAUSEA AND VOMITING 2024 active Not Available Not Available Not Avai lable cefdinir 300 mg capsule TAKE ONE CAPSULE [...] Updated DateTime 5 162.56 cm 33.8 kg/m2 17705.7 g 96.8 [degF] 99 % 99 % 65 /min 93/62 mm[Hg] Stephanie Maravilla [facility] [place] & [place] 5 11:12:52 Social History Question Answer Notes LastModified by Organizat ion Details LastModified Time Tobacco Smoking Status Never Smoker CURT Johnston [facility] & [place] 02/19/2023 14:02:59 What Is Your Level Of Caffeine Consumption? None [email or web address] Information not available 02/19/2023 What Was The Date Of Your Most Recent Tobacco Screening? 11/23/2023 [email or web address] Information not available 11/23/2023 Has Tobacco Cessation Counseling Been Provided? No Information not available 07/13/2023 Sex: Unknown Functional Status Question Answer Note LastModified by Organizat ion Details LastModified Time Do you use any illicit or recreational drugs? No [email or web address] Information not available 02/19/2023 Do you or have you ever used any other forms of tobacco or nicotine? No [email or web address] Information not available 02/19/2023 What is your level of alcohol consumption? None [email or web address] Information not available 02/19/2023 Mental Status None recorded. Family History Nothing Reported. Medical History No medical history recorded. Gynecological HistoryNo gynecological history recorded. Obstetrics History GPAL:G 0 P 0 0 0 0 Immunizations Vaccine Type Date Status Note Provider Nam e and Address Organization Details Recorded Time pneumococcal polysaccharide PPV23 7 completed Stephanie Maravilla CURT yusuf [facility] [place] 12/21/2023 09:56:34 Past Encounters Encounter ID Performer Location Encounter Start Date Encounter Closed Date Diagnosis/Indication Diagnosis SNOMED-CT Code Diagnosis ICD10 Code Diagnosis Note [id number] Hanna Snider PA-C [facility] [address] [place] [address] 11/01/2024 13:00:10 11/01/2024 13:35:08 Antineoplastic chemotherapy regimen 182265169 Z51.11 Week 1 5FU Leucovorin Vectibix on [...] 25, 2024. Malignant tumor of ascending colon 009162900 C18.2 CT scan of the abdomen and [...] 8.2 hematocrit 29.0. MCV 67.9. Platelet count 001366. Normal cell differenti al. Low serum folate [...] study published in September 2022 in the [place] [facility] of combined Avastin therapy with [...] malignancy . Metastatic malignant neoplasm to liver 71934113 C78.7 CT scan of the abdomen and [...] any treatment for her malignancy . Nausea 013941818 R11.0 As needed Zofran and Phenergan prescribed [...] ons. Pain due t o neoplastic disease [id number] 9102 G89.3 Abdominal pain has improved and pain is controlled with current pain medication s. Anemia 270714146 D64.9 Right-side d colon mass concerning for malignancy . Will assess for any signs of iron deficiency . Hemoglobin previously 8.0. Concern for blood loss from colon mass. Patient reports dark stools. Labs on August 10, 2024 with hemoglobin slightly low at 11.9. She is receiving infusional iron as needed. Adopted [id number] Z62.89 8 Patient is adopted and discussed hereditary gene panel. Patient does have family history of her son having bladder cancer. [facility] hereditary panel sent Hypokalemia 25419799 E87 .6 Currently taking for potassium 20 mEq daily. Will follow up labs. 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 [...] reports depression has improved. Atopic conjunctivitis 23 8332960 H10.12 Conjunctiv itis due to Vectibix. This has improved. Iron defic iency anemia 24555114 D50.9 Receiving infusional iron as needed. Will continue to monitor. Insomnia 164060373 G47.0 0 Patient has had difficulty sleeping for most of her life. She has tried multiple medication s without relief. She is tried Mirtazapin e and lorazepam without improvemen t of insomnia. Discussed trying trazodone instead. Restless legs 30745631 G 25.81 Patient taking Requip for restless legs. Generalized rash 1012336 06 R21 Rash due to Vectibix. This has improved. Atrial fibrillation 4943 6004 I48.91 Patient has been diagnosed with congestive heart failure and atrial fibrillati on. She has been started on Coumadin. She is following with the Coumadin clinic at [facility]. Congestive heart failure 72157428 I50.9 Patient has been diagnosed with congestive heart failure. She has started lasix and is following with a cardiologi st. Cachexia 965852257 R64 Patient has had decreased appetite and weight loss. She is drinking nutritiona l supplement s. Discussed appetite stimulant. Patient previously refused. She has started on Megace. She does not like the taste of Megace. Discussed Megace tablets instead of liquid but patient declines at this time. Will continue to monitor History of deep vein thrombosis 904647730 Z86.718 Patient developed right lower extremity pain [...] repeat venous duplex. Drug therapy finding 309 484564 Z79.01 She continues on Coumadin due to a fib. She is following with the Coumadin clinic at [facility]. Candidiasis of skin 4988 3006 B37.2 Patient has intermitte nt rash consistent with candidiasi s under her breasts folds. Will send prescripti on for nystain powder to use as needed. [id number] Hanna Snider PA-C [facility] [address] [place] [address] 11/30/2024 10:57:07 11/30/2024 11:54:59 Antineoplastic chemotherapy regimen [id number] Z51.11 Week 1 5FU Leucovorin Vectibix on [...] 25, 2024. Malignant tumor of ascending colon 346272893 C18.2 CT scan of the abdomen and [...] 8.2 hematocrit 29.0. MCV 67.9. Platelet count 968184. Normal cell differenti al. Low serum folate [...] study published in September 2022 in the [place] [facility] of combined Avastin therapy with [...] malignancy . Metastatic malignant neoplasm to liver 03092223 C78.7 CT scan of the abdomen and [...] any treatment for her malignancy . Nausea 991244689 R11.0 As needed Zofran and Phenergan prescribed . Discussed trying scopolamin e patches but her insurance wouldn't cover. Discussed starting Ativan and Reglan is needed for nausea and vomiting. Pain due t o neoplastic disease [id number] 9102 G89.3 Abdominal pain has improved and pain is controlled with current pain medication s. Anemia 339226324 D64.9 Right-side d colon mass concerning for malignancy . Will assess for any signs of iron deficiency . Hemoglobin previously 8.0. Concern for blood loss from colon mass. Patient reports dark stools. Labs on August 10, 2024 with hemoglobin slightly low at 11.9. She is receiving infusional iron as needed. Adopted 349539689 Z62.89 8 Patient is adopted and discussed hereditary gene panel. Patient does have family history of her son having bladder cancer. [facility] hereditary panel sent Hypokalemia 25556102 E87 .6 Currently taking for potassium 20 mEq daily. Will follow up labs. Mixed anxi ety and depressive disorder 965059751 F41.8 Patient returns on November 23, 2023. [...] reports depression has improved. Atopic conjunctivitis 23 2999293 H10.12 Conjunctiv itis due to Vectibix. This has improved. Iron defic iency anemia 80894251 D50.9 Receiving infusional iron as needed. Will continue to monitor. Insomnia 996013751 G47.0 0 Patient has had difficulty sleeping for most of her life. She has tried multiple medication s without relief. She is tried Mirtazapin e and lorazepam without improvemen t of insomnia. Discussed trying trazodone instead. Restless legs 58416995 G 25.81 Patient taking Requip for restless legs. Generalized rash 5011316 06 R21 Rash due to Vectibix. This has improved. Atrial fibrillation 6603 6004 I48.91 Patient has been diagnosed with congestive heart failure and atrial fibrillati on. She has been started on Coumadin. She is following with the Coumadin clinic at [facility]. Congestive heart failure 12762695 I50.9 Patient has been diagnosed with congestive heart failure. She has started lasix and is following with a cardiologi Cachexia 515050439 R64 Patient has had decreased appetite and weight loss. She is drinking nutritiona l supplement s. Discussed appetite stimulant. Patient previously refused. She has started on Megace. She does not like the taste of Megace. Discussed Megace tablets instead of liquid but patient declines at this time. Will continue to monitor History of deep vein thrombosis 543784642 Z86.718 Patient developed right lower extremity pain [...] repeat venous duplex. Drug therapy finding 309 962290 Z79.01 She continues on Coumadin due to a fib. She is following with the Coumadin clinic at [facility]. Candidiasis of skin 4988 3006 B37.2 Patient has intermitte nt rash consistent with candidiasi s under her breasts folds. She has nystain powder to use as needed. Dehydration 67438856 E86 .0 Patient returns on November 30, [...] Name 11/30/2024 1 [place] Vicky Roblero [id number] Vicky Roblero 11/30/2024 2 [employer] (MEDICARE SUPPLEMENT) Vicky Roblero [id number] Vicky Roblero OBGyn Episode No OBEpisode recorded.
--- OUTSIDE RECORDS SUMMARY | 2024-12-27 17:49 | XMS_ITS | Continuity of Care Document ---
Author Organization [facility] Address [address] [place] [address] Care Team Providers Care Marine Habitat Resource Specialist Name Role Phone ADDY GONZALES General Surgeon CARLOS A COATS Primary Care Provider VERONIKA RIVER Media Technician Assessment No assessment recorded. Plan of Treatment Reminders Order Date Submit Date Provider Last Modified By Organization Details Last Modified Time Details Appointments OV EST 15 2024 10:30A M Tomy King MD Not available Not available Not available Lab carcinoem bryonic Ag, quant, serum or plasma 2024 025 [facility], [address] [place], [address], 11/08/2024 10:04:49 CMP, serum or plasma 2024 025 [facility], [address] [place], [address], 11/01/2024 15:54:32 CBC w/ diff 2024 025 [email or web address] [facility], [address] [place], [address], 11/08/2024 10:04:49 Referral None recorded. Procedures None recorded. Surgeries None recorded. Imaging None recorded. Medication Orders nystatin 100,000 unit/gram topical powder 2024 025 [id number], [id number] [place], [address], 11/01/2024 13:56:59 Patient TargetsNo targets recorded. Patient InstructionsNo instructions recorded. Reason for Referral None Reported. Results Created Date Observation Date Name Description Value Unit Range Abnormal Flag Note LastModifiedBy Organization Detail LastModifiedTime 11/02/19 25 11/01/2024 CBC AUTO W DIFF WBC 6.7 K/uL 4.0-10 .5 Not Available [facility] ([facility]) [address], [place], [address], 11/01/2024 15:32:39 11/02/19 25 11/01/2024 CBC AUTO W DIFF RBC 3.2 M/mm3 4.2-6. 4 low Not Available [facility] ([facility]) [address], [place], [address], 11/01/2024 15:32:39 11/02/19 25 11/01/2024 CBC AUTO W DIFF HGB 9.0 gm/dL 12.5-1 6.0 low Not Available [facility] ([facility]) [address], [place], [address], 11/01/2024 15:32:39 11/02/19 25 11/01/2024 CBC AUTO W DIFF HCT 28.9 % 37.0-4 7.0 low Not Available [facility] ([facility]) [address] [place], [address], 11/01/2024 15:32:39 11/02/19 25 11/01/2024 CBC AUTO W DIFF MCV 90.9 fL 78-100 Not Available [facility] ([facility]) [address] [place], [address], 11/01/2024 15:32:39 11/02/19 25 11/01/2024 CBC AUTO W DIFF MCH 28.3 pg 27-31 Not Available [facility] ([facility]) [address], [place], [address], 11/01/2024 15:32:39 11/02/19 25 11/01/2024 CBC AUTO W DIFF MCHC 31.1 g/dL 32-36 low Not Available [facility] ([facility]) [address], [place], [address], 11/01/2024 15:32:39 11/02/19 25 11/01/2024 CBC AUTO W DIFF RDW 14.5 % 11.5-1 4.0 high Not Available [facility] ([facility]) [address], [place], [address], 11/01/2024 15:32:39 11/02/19 25 11/01/2024 CBC AUTO W DIFF platelet count 257 K/uL 150-45 0 Not Available [facility] ([facility]) [address], [place], [address], 11/01/2024 15:32:39 11/02/19 25 11/01/2024 CBC AUTO W DIFF MPV 9.6 fL 6-9.5 high Not Available [facility] ([facility]) [address], [place], [address], 11/01/2024 15:32:39 11/02/19 25 11/01/2024 CBC AUTO W DIFF neutrophil% 75.3 % 43-65 high Not Available [facility] ([facility]) [address], [place], [address], 11/01/2024 15:32:39 11/02/19 25 11/01/2024 CBC AUTO W DIFF lymphocyte% 13.9 % 20.5-4 5.5 low Not Available [facility] ([facility]) [address] [place], [address], 11/01/2024 15:32:39 11/02/19 25 11/01/2024 CBC AUTO W DIFF monocyte% 7.5 % 5.5-11 .7 Not Available [facility] ([facility]) [address] [place], [address], 11/01/2024 15:32:39 11/02/19 25 11/01/2024 CBC AUTO W DIFF eosinophil% 2.2 % 0.9-2. 9 Not Available [facility] ([facility]) [address] [place], [address], 11/01/2024 15:32:39 11/02/19 25 11/01/2024 CBC AUTO W DIFF basophil% 0.4 % 0.2-1. 0 Not Available [facility] ([facility]) [address] [place], [address], 11/01/2024 15:32:39 11/02/19 25 11/01/2024 CBC AUTO W DIFF immature granulocytes % 0.7 % 0.0-0. 8 Not Available [facility] ([facility]) [address] [place], [address], 11/01/2024 15:32:39 11/02/19 25 11/01/2024 CBC AUTO W DIFF nucleated red blood cells % 0.0 % Not Available [facility] ([facility]) [address] [place], [address], 11/01/2024 15:32:39 11/02/19 25 11/01/2024 CBC AUTO W DIFF neutrophil# 5.0 K/uL 2.2-4. 8 high Not Available [facility] ([facility]) [address] [place], [address], 11/01/2024 15:32:39 11/02/19 25 11/01/2024 CBC AUTO W DIFF lymphocyte# 0.9 cell/ mcL 1.3-2. 9 low Not Available [facility] ([facility]) [address] [place], [address], 11/01/2024 15:32:39 11/02/19 25 11/01/2024 CBC AUTO W DIFF monocyte# 0.5 cell/ mcL 0.3-0. 8 Not Available [facility] ([facility]) [address], [place], [address], 11/01/2024 15:32:39 11/02/19 25 11/01/2024 CBC AUTO W DIFF eosinophil# 0.2 cell/ mcL 0-0.2 Not Available [facility] ([facility]) [address] [facility], [place], [address], 11/01/2024 15:32:39 11/02/19 25 11/01/2024 CBC AUTO W DIFF basophil# 0.0 cell/ mcL 0.0-1. 0 Not Available [facility] ([facility]) [address] [facility], [place], [address], 11/01/2024 15:32:39 11/02/19 25 11/01/2024 CBC AUTO W DIFF immature gramulocytes # 0.05 K/uL Not Available [facility] ([facility]) [address] [facility] [facility], [place], [address], 11/01/2024 15:32:39 11/02/19 25 11/01/2024 CBC AUTO W DIFF nucleated red blood cells # 0.00 K/uL Not Available [facility] ([facility]) [address] [facility] [facility], [place], [address], 11/01/2024 15:32:39 11/02/19 25 11/01/2024 CBC AUTO W DIFF manual differential NO Not Available [facility] ([facility]) [address] [facility], [place], [address], 11/01/2024 15:32:39 11/02/19 25 11/01/2024 COMP METAB OLIC PANEL sodium 139 mmol/ L 136-14 5 Not Available [facility] ([facility]) [address] , [place], [address], 11/01/2024 15:54:32 11/02/19 25 11/01/2024 COMP METAB OLIC PANEL potassium 3.6 mmol/ L 3.6-5. 0 Not Available [facility] ([facility]) [address] , [place], [address], 11/01/2024 15:54:32 11/02/19 25 11/01/2024 COMP METAB OLIC PANEL chloride 103 mmol/ L 98-107 Not Available [facility] ([facility]) [address] , [place], [address], 11/01/2024 15:54:32 11/02/19 25 11/01/2024 COMP METAB OLIC PANEL carbon dioxide 27.8 mmol/ L 21.0-3 2.0 Not Available [facility] ([facility]) [address] [place], [address], 11/01/2024 15:54:32 11/02/19 25 11/01/2024 COMP METAB OLIC PANEL anion gap 11.8 Not Available [facility] ([facility]) [address] , [place], [address], 11/01/2024 15:54:32 11/02/19 25 11/01/2024 COMP METAB OLIC PANEL glucose 112 mg/dL 70-120 Not Available [facility] ([facility]) [address] [place], [address], 11/01/2024 15:54:32 11/02/19 25 11/01/2024 COMP METAB OLIC PANEL BUN 9 mg/dL 7-18 Not Available [facility] ([facility]) [address] [place], [address], 11/01/2024 15:54:32 11/02/19 25 11/01/2024 COMP METAB OLIC PANEL creatinine 1.1 mg/dL 0.6-1. 3 Not Available [facility] ([facility]) [address] , [place], [address], 11/01/2024 15:54:32 11/02/19 25 11/01/2024 COMP METAB [...] albrecht ing kiney funct ion. Not Available [facility] ([facility]) [address] , [place], [address], 11/01/2024 15:54:32 11/02/19 25 11/01/2024 COMP METAB OLIC PANEL osmolality (calculated) 289 mOsm/ kg 275-30 1 OSMOL ALITY IS A CALCU LATIO N UTILI ZING THE SERUM /PLAS MA SODIU M, GLUCO SE AND UREA NITRO GEN (BUN) LEVEL S. FOR THE MOST ACCUR ATE RESUL T A MEASU RED SERUM OSMOL ALITY IS SUGTASHA QUEVEDOD. Not Available [facility] ([facility]) [address] , [place], [address], 11/01/2024 15:54:32 11/02/19 25 11/01/2024 COMP METAB OLIC PANEL total protein 6.5 g/dL 6.4-8. 2 Not Available [facility] ([facility]) [address] , [place], [address], 11/01/2024 15:54:32 11/02/19 25 11/01/2024 COMP METAB OLIC PANEL albumin 2.2 g/dL 3.4-5. 0 low Not Available [facility] ([facility]) [address], [place], [address], 11/01/2024 15:54:32 11/02/19 25 11/01/2024 COMP METAB OLIC PANEL globulin 4.3 Not Available [facility] ([facility]) [address], [place], [address], 11/01/2024 15:54:32 11/02/19 25 11/01/2024 COMP METAB OLIC PANEL alb/glob ratio 0.5 0.7-2 low Not Available [facility] ([facility]) [address], [place], [address], 11/01/2024 15:54:32 11/02/19 25 11/01/2024 COMP METAB OLIC PANEL calcium 8.5 mg/dL 8.5-10 .5 Not Available [facility] ([facility]) [address], [place], [address], 11/01/2024 15:54:32 11/02/19 25 11/01/2024 COMP METAB OLIC PANEL bilirubin total 0.40 mg/dL 0.10-1 .00 Not Available [facility] ([facility]) [address] , [place], [address], 11/01/2024 15:54:32 11/02/19 25 11/01/2024 COMP METAB OLIC PANEL AST (SGOT) 33 U/L 0-37 Not Available [facility] ([facility]) [address] , [place], [address], 11/01/2024 15:54:32 11/02/19 25 11/01/2024 COMP METAB OLIC PANEL ALT (SGPT) 11 U/L 0-65 Not Available [facility] ([facility]) [address], [place], [address], 11/01/2024 15:54:32 11/02/19 25 11/01/2024 COMP METAB OLIC PANEL alk phosphatase 327 U/L 46-116 high Not Available [facility] ([facility]) [address], [place], [address], 11/01/2024 15:54:32 11/02/19 25 11/03/2024 CEA cea [...] dennis graves . [place]fo [place]med at: [facility] [place] [address] Lab Direc tor: Tate staton PhD, Phone : [phone] Not Available [facility] ([facility]) [address] [facility], [place], [address], 11/03/2024 13:11:48 Result Notes None recorded. Problems Name Problem SNOMED Code Status Onset Date Resolution Date Notes Provider Name and Address Organization Details Recorded Time Metastatic malignant neoplasm to liver 71191541 Active 2022 Ghassan Lieberman PA-C [address] , [place], [address] , [place] [facility] - [place] & [place] 3 14:27:25 Mass of colon 062482775 Active 2022 Ghassan Lieberman PA-C [address] , [place], [address] , [place] [facility] [place] & [place] 3 14:27:30 Anemia 645692727 Active 2022 Ghassan Lieberman PA-C [address], [place], [address] , [place] [facility] [place] & [place] 3 14:27:36 Nausea and vomiting 10906731 Active 2022 Ghassan Lieberman PA-C [address], [place], [address] , [facility] - [facility] - [place] & [place] 3 14:27:46 Unintentional weight loss 097206141 Active 2022 Ghassan Lieberman PA-C [address], [place], [address] , [facility] - [facility] & [place] 3 16:13:07 Night sweats 59806253 Active 2022 Ghassan Lieberman PA-C [address], [place], [address] , [facility] - [facility] & [place] 3 16:13:12 Headache 62898903 Active 2024 Christine yusuf CURT [facility] & [place] 5 10:27:12 Problem Notes Documentation Provider Name and Address Organization Details Recorded Time Oncology Patient Navigator : ONN met with pt at [facility] with medical oncology. Pt states she is doing well at this time. Hospice consult was briefly discussed and pt declined at this time. ONN encouraged pt to reach out may any needs/concerns arise. Christine yusuf, [facility] & [place] 11/01/2024 13:52:48 Procedures Surgical History Date Name Laterality Status Provider Name and Address Organization Details Recorded Time 04/29/20 23 Venipuncture completed Hanna Snider PA-C [address], [place], [address], [facility] - [facility] & [place] 04/27/2023 15:05:29 04/15/20 23 Venipuncture completed Stephanie Maravilla [facility] [place] & [place] 04/15/2023 15:24:55 hysterectomy completed Laurel Samuels [facility] & [place] 03/11/2023 15:30:22 extraction of cataract completed Laurel ELIAS [facility] & [place] 03/11/2023 15:30:36 excision of colon completed Loree Tadeo [facility] & [place] 04/21/2023 11:32:07 Imaging Results None recorded. Procedure Notes None recorded. Medical Equipment None Reported. Allergies Allergen ID Allergen Name Allergen Category Reaction Reaction Severity Criticality Documentation Date Start Date Code Code System Note Provider Name and Address Organization Details Recorded Time 23355 tetracycl ine medicatio n hives Not available high 02/19/2023 10622 RxNorm Brandy Maciel [facility], [facility] & [place] 14:03:33 Medications Name Sig Start Date Stop [...] Last Updated DateTime 162.56 cm 33.5 kg/m2 45233.5 1 g 97.6 [degF] 98 % 98 % 75 /min 185/79 mm[Hg] Laurel Samuels [facility] & [place] 13:16:39 Social History Question Answer Notes LastModified by Organizat ion Details LastModified Time Tobacco Smoking Status Never Smoker Brandy Maciel [facility] & [place] 02/19/2023 14:02:59 What Is Your Level Of Caffeine Consumption? None [email or web address] Information not available 02/19/2023 What Was The Date Of Your Most Recent Tobacco Screening? 11/23/2023 [email or web address] Information not available 11/23/2023 Has Tobacco Cessation Counseling Been Provided? No [email or web address] Information not available 07/13/2023 Sex: Unknown Functional Status Question Answer Note LastModified by Organizat ion Details LastModified Time Do you use any illicit or recreational drugs? No [email or web address] Information not available 02/19/2023 Do you or have you ever used any other forms of tobacco or nicotine? No [email or web address] Information not available 02/19/2023 What is your level of alcohol consumption? None [email or web address] Information not available 02/19/2023 Mental Status None recorded. Family History Nothing Reported. Medical History No medical history recorded. Gynecological HistoryNo gynecological history recorded. Obstetrics History GPAL:G 0 P 0 0 0 0 Immunizations Vaccine Type Date Status Note Provider Nam e and Address Organization Details Recorded Time pneumococcal polysaccharide PPV23 7 completed Stephanieramana Maravilla [facility], [place] [facility] & [place] 12/21/2023 09:56:34 Past Encounters Encounter ID Performer Location Encounter Start Date Encounter Closed Date Diagnosis/Indication Diagnosis SNOMED-CT Code Diagnosis ICD10 Code Diagnosis Note [id number] Hanna Snider PA-C [facility] [address] [place] [address] 11/01/2024 13:00:10 11/01/2024 13:35:08 Antineoplastic chemotherapy regimen 548544622 Z51.11 Week 1 5FU Leucovorin Vectibix on [...] 25, 2024. Malignant tumor of ascending colon 952910235 C18.2 CT scan of the abdomen and [...] 8.2 hematocrit 29.0. MCV 67.9. Platelet count 864422. Normal cell differenti al. Low serum folate [...] study published in September 2022 in the [place] Journal Medicine of combined Avastin therapy with [...] malignancy . Metastatic malignant neoplasm to liver 53256547 C78.7 CT scan of the abdomen and [...] any treatment for her malignancy . Nausea 205543174 R11.0 As needed Zofran and Phenergan prescribed [...] ons. Pain due t o neoplastic disease 3860051838 9102 G89.3 Abdominal pain has improved and pain is controlled with current pain medication s. Anemia 274589070 D64.9 Right-side d colon mass concerning for malignancy . Will assess for any signs of iron deficiency . Hemoglobin previously 8.0. Concern for blood loss from colon mass. Patient reports dark stools. Labs on August 10, 2024 with hemoglobin slightly low at 11.9. She is receiving infusional iron as needed. Adopted 032940279 Z62.89 8 Patient is adopted and discussed hereditary gene panel. Patient does have family history of her son having bladder cancer. [facility] hereditary panel sent Hypokalemia 52975172 E87 .6 Currently taking for potassium 20 mEq daily. Will follow up labs. Mixed anxi ety and depressive disorder 864430183 F41.8 Patient returns on November 23, 2023. [...] reports depression has improved. Atopic conjunctivitis 23 4417895 H10.12 Conjunctiv itis due to Vectibix. This has improved. Iron defic iency anemia 70105065 D50.9 Receiving infusional iron as needed. Will continue to monitor. Insomnia 659283869 G47.0 0 Patient has had difficulty sleeping for most of her life. She has tried multiple medication s without relief. She is tried Mirtazapin e and lorazepam without improvemen t of insomnia. Discussed trying trazodone instead. Restless legs 71563846 G 25.81 Patient taking Requip for restless legs. Generalized rash 3974435 06 R21 Rash due to Vectibix. This has improved. Atrial fibrillation 4943 6004 I48.91 Patient has been diagnosed with congestive heart failure and atrial fibrillati on. She has been started on Coumadin. She is following with the Coumadin clinic at [facility]. Congestive heart failure 80072126 I50.9 Patient has been diagnosed with congestive heart failure. She has started lasix and is following with a cardiologi st. Cachexia 448070456 R64 Patient has had decreased appetite and weight loss. She is drinking nutritiona l supplement s. Discussed appetite stimulant. Patient previously refused. She has started on Megace. She does not like the taste of Megace. Discussed Megace tablets instead of liquid but patient declines at this time. Will continue to monitor History of deep vein thrombosis 264776651 Z86.718 Patient developed right lower extremity pain [...] repeat venous duplex. Drug therapy finding 309 975746 Z79.01 She continues on Coumadin due to [...] Name 11/01/2024 1 [place] Vicky Roblero [id number] Vicky Roblero 11/01/2024 2 [employer] (MEDICARE SUPPLEMENT) Vicky Roblero [id number] Vicky Roblero OBGyn Episode No OBEpisode recorded.
--- OUTSIDE RECORDS SUMMARY | 2024-12-27 17:49 | XMS_ITS | Encounter Summary ---
Author Organization [place] [address] Care Team Providers Care Health Inspector Food Name Role Phone Luis Villasenor MD Unavailable [phone] Luis Villasenor MD Primary Care Provider Encounter Details Date Type Department Care Team (Late Contact Info) Description 12/05/2024 Orders Only SEP Sarah [address] [place], [facility] [phone] Pau Gray, A [address] [place] [address] 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 due to chronic blood [...] documented as of this encounter Care Teams Health Inspector Food Relationship Specialty Start Date End Date Luis Villasenor MD [address] [place] [place] [phone] PCP - OBGYN 01/09/10 Luis Villasenor MD [address] [place] [phone] PCP - General 01/09/10 documented as of this encounter
--- OUTSIDE RECORDS SUMMARY | 2024-12-27 17:49 | XMS_ITS | Encounter Summary ---
Author Organization [place] [address] Care Team Providers Care Embroidery Supervisor Name Role Phone Luis Villasenor MD Unavailable [phone] Luis Villasenor MD Primary Care Provider Encounter Details Date Type Department Care Team (Latest Contact Info) Description 10/28/2024 Results Follow-Up SEP Sarah [address] [place] [phone] Amarilis Nolan, [employer] [address] [place] [address] COMPREHENSIVE METABOLIC PANEL, URINE CULTURE (NO [...] documented as of this encounter Care Teams Embroidery Supervisor Relationship Specialty Start Date End Date Luis Villasenor MD [address] [place] [address] PCP - OBGYN 01/09/10 Luis Villasenor MD [address] [place] [address] PCP - General 01/09/10 documented as of this encounter
--- OUTSIDE RECORDS SUMMARY | 2024-12-27 17:49 | XMS_ITS | Encounter Summary ---
Author Organization [place] [address] Care Team Providers Care Municipal Court Judge Name Role Phone Luis Villasenor MD Unavailable [phone] Luis Villasenor MD Primary Care Provider Reason for Visit * Reason Onset Date Comments Other 10/11/2024 FYI- pt is wanti palliative care, home health asking if pcp would like to do this. Encounter Details Date Type Department Care Team (Late st Contact Info) Description 10/11/2024 Telephone SEP Sarah [address] [place] [address] Luis Villasenor MD [...] to patient if not the patient): [facility] home health- Yarelis What is needed OR [...] documented as of this encounter Care Teams Municipal Court Judge Relationship Specialty Start Date End Date Luis Villasenor MD [address] [place] [phone] PCP - OBGYN 01/09/10 Luis Villasenor MD [address] [place] [phone] PCP - General 01/09/10 documented as of this encounter
--- OUTSIDE RECORDS SUMMARY | 2024-12-27 17:49 | XMS_ITS | Encounter Summary ---
Author Organization [place] [address] Care Team Providers Care Invoice Coder Name Role Phone Luis Villasenor MD Unavailable [phone] Luis Villasenor MD Primary Care Provider [phone] Reason for Visit * Reason Onset Date Comments Other 11/01/2024 Encounter Details Date Type Department Care Team (Late Contact Info) Description 11/01/2024 Telephone SEP Sarah [address] [place] [address] Luis Villasenor MD [address] [place] [address] Other Social History Tobacco Use Types [...] documented as of this encounter Care Teams Invoice Coder Relationship Specialty Start Date End Date Luis Villasenor MD [address] [place] [phone] PCP - OBGYN 01/09/10 Luis Villasenor MD [address] [place] [phone] PCP - General 01/09/10 documented as of this encounter
--- OUTSIDE RECORDS SUMMARY | 2024-12-27 17:49 | XMS_ITS | Encounter Summary ---
Author Organization [place] [address] Care Team Providers Care Charter Coordinator Name Role Phone Luis Villasenor MD Unavailable [phone] Luis Villasenor MD Primary Care Provider Reason for Visit * Reason Onset Date Comments Orders 12/14/2024 SN Encounter Details Date Type Department Care Team (Late Contact Info) Description 12/14/2024 Telephone SEP Sarah [facility] [place] [address] [address] Luis Villasenor MD [address] 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 8 Each 11 12/26/2024 0.9 % sodium chloride (SODIUM CHLORIDE 0.9%) 0.9% IV SolutionIndications: Dehydration,Malignan t neoplasm metastatic to liver (HCC),Malignant tumor of ascending colon (HCC),Palliative care patient Inject 50-100 mL into the vein two times a week on Thursday and Thursday. 8 Each 12/26/2024 0.9 % sodium chloride (SODIUM CHLORIDE 0.9%) 0.9% IV SolutionIndications: Dehydration,Malignan t neoplasm metastatic to liver (HCC),Malignant tumor of ascending colon (HCC),Palliative care patient Inject 50-100 mL into the vein every 7 days. 4 Each 12/26/2024 5 IV Administration Set Misc Infusion SetIndications:Dehyd ration,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),Malignant tumor of ascending colon (HCC),Palliative care patient 1 Each by Misc.(Non-Dr ug; Combo Route) route every 7 days. 4 Each 12/26/2024 5 documented in this encounter Miscellaneous Notes * Telephone Encounter - Pau Gray RMA - 12/26/2024 12:41 PM EDT Everything has been ordered and is on Amarilis Nolan's desk for her to sign when she returns. Addend note to include need for IV fluids twice weekly. 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 12/26/2024 12/26/2024 0.9 % sodium chloride (SODIUM CHLORIDE 0.9%) 0.9% IV SolutionIndications:Dehydr ation,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),Malignant tumor of ascending colon (HCC),Palliative care patient Inject 50-100 mL into the vein every 7 days. 12/26/2024 12/26/2024 documented as of this encounter Additional Health Concerns Assessment Noted Time A fall risk assessment has been complete d for the patient 06/14/2024 9:03 AM EST documented as of this encounter Care Teams Charter Coordinator Relationship Specialty Start Date End Date Luis Villasenor MD [address] [place] [phone] PCP - OBGYN 01/09/10 Luis Villasenor MD [address] [place] [id number] PCP - General 01/09/10 documented as of this encounter
--- OUTSIDE RECORDS SUMMARY | 2024-12-27 17:50 | XMS_ITS | Encounter Summary ---
Author Organization [place] [address] Care Team Providers Care Direct Support Specialist Name Role Phone Luis Villasenor MD Unavailable [phone] Luis Villasenor MD Primary Care Provider [phone] Reason for Referral * Home Health Care (Routine) - Pending Review Specialty Diagnoses / Procedures Referred By Adelso t Referred To Contact Home Health Diagnoses 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 due to chronic blood loss alf (current) use of anticoagulants Type 2 diabetes mellitus without complication, unspecified whether penitentiary insulin use (HCC) Hyponatremia Paroxysmal atrial fibrillation (HCC) Dehydration Luis Villasenor MD [address] [place] [address] Phone: tel: fax: Referral ID Status Reason Start Date Expiration Date Visits Requested Visits Authorized [id number] Pending Review Continuity of Care 12/26/2024 12/26/2025 1 1 Comments Nursing for IV fluids weekly Encounter Details Date Type Department Care Team (Late st Contact Info) Description 12/26/2024 Orders Only SEP Sarah [facility] [address] [place] [place] [address] Luis Villasenor MD [address] [place] [phone] 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 due to chronic blood loss (Primary Dx); alf (current) use of anticoagulants; Type 2 diabetes mellitus without complication, unspecified whether penitentiary insulin use (HCC); Hyponatremia; Paroxysmal atrial fibrillation (HCC); Dehydration Social History Tobacco Use Types Packs/Day [...] in this encounter Plan of Treatment Scheduled Referrals Name Type Priority Associated Diagnoses Orde r Schedule AMB REFERRAL TO HOME HEALTH Outpatient Referral Routine 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 due to chronic blood loss 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 Type 2 diabetes mellitus without complication, 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) Hyponatremia Paroxysmal atrial fibrillation (HCC) Dehydration Ordered: 12/26/2024 documented as of this encounter Goals Goal [...] deficiency anemia secondary to blood loss (chronic) 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 Long-term (current) use of anticoagulants Type 2 diabetes mellitus without complication, unspecified whether penitentiary insulin use (HCC) Hyponatremia Hyposmolality and/or hyponatremia Paroxysmal atrial fibrillation (HCC) Atrial fibrillation Dehydration documented in this encounter Additional Health Concerns Assessment Noted Time A fall risk assessment has been complete d for the patient 06/14/2024 9:03 AM EST documented as of this encounter Care Teams Direct Support Specialist Relationship Specialty Start Date End Date Luis Villasenor MD [address] [place] [id number] PCP - OBGYN 01/09/10 Luis Villasenor MD [address] [place] [id number] PCP - General 01/09/10 documented as of this encounter
--- OUTSIDE RECORDS SUMMARY | 2024-12-27 17:50 | XMS_ITS | Clinical Summary ---
Author Organization [facility] Address [address] [place] [address] Phone Care Team Providers Care Overlock Waistline Joiner Name Role Phone Luis Villasenor MD Unavailable [phone] Luis Villasenor MD Primary Care Provider Allergies Active Allergy Reactions Criticality Noted Date Comments Allopurinol Myalgia 07/04/2013 Tetracycline Rash Medications magnesium oxide (MAG-OX) 400 mg (241.3 mg magnesium) Oral Tablet Take 400 mg by mouth daily. as directed 024 Active fUROsemide (LASIX) 40 mg Oral TabletIndications: Acute on chronic heart failure with preserved ejection fraction (HCC) Take 1 Tablet by mouth daily. 90 Tablet 3 025 Active potassium chloride (KLOR-CON M) 20 mEq Oral Tab Sust.Rel. Particle/CrystalIn dications:Peripher al edema Take 1 Tablet by mouth daily. 90 Tablet 025 Active spironolactone (ALDACTONE) 25 mg Oral TabletIndications: Peripheral edema Take 1 Tablet by mouth daily. 90 Tablet 3 025 Active warfarin (COUMADIN) 5 mg Oral TabletIndications: prevent thromboembolism in chronic atrial fibrillation Thursday and Thursday Indications: treatment to prevent blood clots in chronic atrial fibrillation 025 Active Additional Information Patient not taking.Reported on 12/19/2024 warfarin (COUMADIN) 2.5 mg Oral TabletIndications: History of DVT (deep vein thrombosis),Paroxy smal atrial fibrillation (HCC) Tue, Thu, , Sat and Sun Active Additional Information Patient not taking.Reported on 12/19/2024 HYDROmorphone (DILAUDID) 2 mg Oral Tablet Take 2 mg by mouth every 4 hours as needed. Active HYDROcodone-acetam inophen (NORCO) 10-325 mg Oral Tablet Take 1 Tablet by mouth every 6 hours as needed. Active cefdinir (OMNICEF) 300 mg Oral Capsule Take 300 mg by mouth every 12 hours. Active metoprolol succinate (TOPROL-XL) 50 mg Oral Tablet Sustained Release 24 hr Take 50 mg by mouth nightly. Active NYSTOP Top Powder APPLY TOPICALLY TO THE AFFECTED AEA(S) 2 TIMES A DAY NEEDED Active rOPINIRole (REQUIP) 0.5 mg Oral Tablet Take 0.5 mg by mouth 3 times daily. Active JANTOVEN 2 mg Oral Tablet Take 2 mg by mouth daily. Active Menthol-Zinc Oxide (CALMOSEPTINE) 0.44-20.6 % Top OintmentIndication s:Skin breakdown Apply 1 mL topically 6 times daily. 113 g 2 025 Active ondansetron (ZOFRAN) 4 mg Oral TabletIndications: Malignant tumor of ascending colon (HCC),Hyponatremia Take 2 Tablets by mouth every 6 hours as needed for Nausea. 40 Tablet 5 025 Active 0.9 % sodium chloride (SODIUM CHLORIDE 0.9%) 0.9% IV SolutionIndication s:Dehydration,Nithya gnant neoplasm metastatic to liver (HCC),Malignant tumor of ascending colon (HCC),Palliative care patient Inject 50-100 mL into the vein two times a week on Thursday and Thursday. 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 8 Each 025 Active iron sucrose (VENOFER) 200 mg iron/10 mL IV SolutionIndication s: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 due to chronic blood loss Inject 10 mL into the vein once a week for 2 doses. 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 4 Each 025 2024 Discontinued 0.9 % sodium chloride (SODIUM CHLORIDE 0.9%) 0.9% IV SolutionIndication s:Dehydration,Nithya gnant neoplasm metastatic to liver (HCC),Malignant tumor of ascending colon (HCC),Palliative care patient Inject 50-100 mL into the vein every 7 days. 4 Each 025 2024 Discontinued Active Problems Patient Care Coordination No te [...] early 2024 per patient decision Managed by [facility] Assessment & Plan (10/02/2024 10:12 PM EDT): - has active disease - managed by Oncology -has stopped treatment 07/2024 Assessment & Plan (06/14/2024 9:41 PM EST): - has active disease - currently undergoing chemotherapy / immunotherapy - managed by Oncology, [facility] Malignant tumor of ascending colon 06/14/2024 Overview (06/14/2024): CT scan 01/2023 with multiple masses of liver and ascending colon thickening. 04/2023, R hemicolectomy and anastomosis, pathology of invasive moderately differentiated adenocarcinoma. Metastatic adenocarcinoma in 2/10 lymph nodes. Wedge resection of the liver with metastatic adenocarcinoma consistent with colon primary. Continues with chemotherapy [id number]. Managed by [facility] Assessment & Plan (10/02/2024 10:12 PM EDT): - has active disease - managed by Oncology -has stopped treatment 07/2024 Assessment & Plan (06/14/2024 9:41 PM EST): - has active disease - currently undergoing chemotherapy / immunotherapy - managed by Oncology, [facility] (current) use of anticoagulants 2024 Overview (10/02/2024): Coumadin therapy, Afib Assessment & Plan (10/02/2024 10:12 PM EDT): On coumadin therapy, managed by the coumadin clinic at [facility], Dr. Youngblood, cardiology. Taking 5mg // and 2.5mg other days Paroxysmal atrial fibrillation 06/14/2024 Overview (06/14/2024): Dr. Youngblood, cardiology, [facility] Assessment & Plan (10/02/2024 10:12 [...] new coumadin start today Medication Management: - [id number] score considered in medication management decisions at [...] Living will, counseling/discussion 03/30/2015 Overview (02/09/2020): Declines intermediate vent support and senior marketing data analyst hydration and nutrition via feeding tube or [...] glucose tolerance) Overview (03/30/2015): Calorie restrict attempt [id number] calories per day. Decrease starches like bread [...] Encounters Date Type Department Care Team Description 12/26/2024 Orders Only [address] [place] [phone] Luis Villasenor MD 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 due to chronic blood loss (Primary Dx); blender snuff (current) use of anticoagulants; Type 2 diabetes mellitus without complication, unspecified whether senior marketing data analyst insulin use (HCC); Hyponatremia; Paroxysmal atrial fibrillation (HCC); Dehydration 12/19/2024 9:00 AM EDT Office Visit [address] [place] [phone] Amarilis Nolan APRN Medicare annual wellness visit, subsequent (Primary Dx); Paroxysmal atrial fibrillation (HCC); Malignant tumor of ascending colon (HCC); Hyponatremia; Type 2 diabetes mellitus without complication, unspecified whether senior marketing data analyst insulin use (HCC); Skin breakdown; blender snuff (current) use of anticoagulants 12/19/2024 Results Follow-Up [facility] [address] [place] [address] Charlotte Mccann, MAYA IRIS DIABETIC RETINOPATHY EXAM 12/14/[address] [place] [address] Luis Villasenor MD Orders (SN) 12/05/2024 Orders Only [address] [place] [address] Pau Gray, MIKALA 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 due to chronic blood loss 12/01/[address] [place] [address] Luis Villasenor MD Follow Up (Need diagnosis code on infusion order - ok to handwrite on order - please fax to [phone]) 11/30/2024 Orders Only [address] [place] [address] Pau Gray, RMA 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 due to chronic blood loss 11/28/2024 Orders Only [address] [place] [address] Amarilis Nolan, EMPLOYEE'S REPRESENTATIVE 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 due to chronic blood loss (Primary Dx) 11/25/[address] [place] [address] Amarilis Nolan, EMPLOYEE'S REPRESENTATIVE Orders 11/14/2024 9:00 AM EDT Office Visit [address] [place] [phone] Amarilis Nolan, EMPLOYEE'S REPRESENTATIVE 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) (Primary Dx); History of DVT (deep vein thrombosis); Paroxysmal atrial fibrillation (HCC); Cobalamin deficiency; Flank pain; Dehydration; Blood loss 11/11/2024 Orders Only [address] [place] [address] Amarilis Nolan, EMPLOYEE'S REPRESENTATIVE Flank pain (Primary Dx); Blood loss; Dehydration 11/04/2024 11:15 AM EDT Office Visit [address] [place] [address] Amarilis Nolan, EMPLOYEE'S REPRESENTATIVE Diverticulitis of large intestine without perforation or abscess without bleeding (Primary Dx); Peripheral edema; Malignant tumor of ascending colon (HCC); 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 [place], [place] [address] Amarilis Nolan APRN Flank pain (Primary Dx) 10/26/[address] [place] [address] Luis Villasenor MD Relaying Information (Reporting new issues with pain. ///) 10/11/[address] [place], [place] [address] Luis Villasenor MD Other (FYI- pt is wanting palliative care, home health asking if pcp would like to do this. ) 10/07/[address] [place] [address] Luis Villasenor MD Orders (VO for OT) 09/30/[address] [place], [place] [address] Luis Villasenor MD Orders (SN,verbal ) from Last 3 Months Immunizations Immunization Administration Dates Next Due Pneumococcal Conjugate Vaccine 13 Valent 015 Pneumococcal Polysaccharide 23 Valent 12/04/2016 Tdap 01/20/2011 01/20/2021 Surgical History Surgery Date Site/Laterality Comments HYSTERECTOMY secondary to uterine fibroids TONGUE SURGERY benign tumor removed CARDIAC CATHETERIZATION CATARACT REMOVAL 07/09/2013 Left LEFT EYE CATARACT EXTRACTION WITH PHACOEMULSIFICATION AND INTRAOCULAR LENS; Surgeon: Keith Lynn MD; Location: [facility]; Service: Ophthalmology Medical devices from this surgery are in the Medical Devices section. CATARACT REMOVAL 08/03/2013 Eye/Right RIGHT EYE CATARACT EXTRACTION WITH PHACOEMULSIFICATION AND INTRAOCULAR LENS ; Surgeon: Keith Lynn MD; Location: [facility]; Service: Ophthalmology Medical devices from [...] Health Maintenance Due Date Last Done Comments COVID-19 Vaccine (#1) 09/22/1950 Kidney Health: uACR [...] 11/14/2025 11/14/2024, 10/26/2024, 09/01/2022, Additional history exists Wellness Exam Medicare 12/20/2025 12/19/2024 Diabetic Eye Exam 12/19/2026 12/19/2024 Hepatitis C [...] [place] [facility] [employer] Devices Implanted Type Area Shucker Device Identifier Shelf Expiration Date Model / Serial / Lot Lens Intraocular 23.0 Diopter Acrysof Iq 13.0mm Length 6.0mm - [id number] Implanted:Qty: 1 on 07/09/2013 by Keith Lynn MD at [facility] Left: Eye [facility]URG 01/30/2018 [id number]. 0 / [id number] / Lens Intraocular 23.5 Diopter Acrysof Iq 13.0mm Length 6.0mm - [id number] Implanted:Qty: 1 on 08/03/2013 by Keith Lynn MD at [facility] Right: Eye [facility]:SURG 03/01/2018 [id number]. [id number] / [id number] / Procedures Procedure Name Priority Date/Time Associated Diagnosis Comments IRIS DIABETIC RETINOPATHY EXAM Routine 12/19/2024 9:25 AM EDT Type 2 diabetes mellitus without complication, unspecified whether senior marketing data analyst insulin use (HCC) FERRITIN Routine 11/14/2024 10:07 [...] 9:25 AM EDT) Retinopathy Exam Severity NORMAL [facility] Right Diabetic Retinopathy None [facility] Right Macular Edema None [facility] Right Other Retina None [facility] Right Eye Image Quality Gradable Image [facility] Left Diabetic Retinopathy None [facility] Left Macular Edema None [facility] Left Other Retina None [facility] Left Eye Image Quality Gradable Image [facility] 12/19/2024 9:25 AM EDT 12/19/2024 9:25 AM EDT Impressions [facility] - 12/19/2024 9:31 AM EDT Retinal Study Result for DESHAWNTESSIE ROBLERO, a 79 y/o, F (: 1945, ) presented to [facility] on 12-19-2024 for a retinal [...] signed by John Hylton MD, , Taxonomy: [id number] on 12-19-2024 13:31 [facility]. NOTE: Any pathology noted on this diabetic retinal evaluation should be confirmed by an appropriate ophthalmic examination. us Amarilis Nolan APRN OPHTHALMOLOGY SERVICES OR DERABLES Final Result [facility] [address] [id number] * (ABNORMAL) IRON+TIBC (11/14/2024 10:07 AM EDT) Iron 26(L) 30 - 160 mcg/dL 11/14/2024 4:07 PM EDT PREFERRED LAB [facility] Transferrin 153(L) 200 - 360 mg/dL 11/14/2024 4:07 PM EDT [facility] Transferrin Saturation 12(L) 20 - 50 % 11/14/2024 4:07 PM EDT [facility] TIBC 214(L) 250 - 400 mcg/dL 11/14/2024 4:07 PM EDT [facility] Blood VENOUS BLOOD / Unknown Venipuncture / Unknown 11/14/2024 10:07 AM EDT 11/14/2024 10:07 AM EDT Amarilis Nolan APRN CHEMISTRY ORDERABLES Kell l Result Performing Organization Address [facility] Phone Number [address] , [place] [address] * VITAMIN B12/ FOLIC ACID (11/14/2024 10:07 AM EDT) [facility] Vitamin B12 801 232 - 1,245 pg/mL 11/14/2024 4:02 PM EDT [facility] Folate 9.89 >=4.80 ng/mL 11/14/2024 4:02 PM EDT [facility] Blood VENOUS BLOOD / Unknown Venipuncture / Unknown 11/14/2024 10:07 AM EDT 11/14/2024 10:07 AM EDT Narrative [facility] - 11/14/2024 4:02 PM EDT Ingestion of rocio doses of biotin (>5 mg/day) taken within 8 hours of drawing blood sample can interfere with this immunoassay test. Amarilis Nolan APRN CHEMISTRY ORDERABLES Kell l Result Performing Organization Address [facility] Phone Number [address] [place] [address] * (ABNORMAL) CBC WITH DIFF (11/14/2024 10:07 AM EDT) [facility] WBC 10.0 3.7 - 10.3 x10(3)/mcL 11/14/2024 [...] [facility] Platelet 375(H) 155 - 369 x10(3)/[facility] 11/14/2024 3:44 PM EDT PREFERRED LAB [...] 3:44 PM EDT [facility] Lawrence Percent 8.3 % 11/14/2024 3:44 PM EDT [facility] Eos Percent 3.5 % 11/14/2024 3:44 PM EDT [facility] Baso Percent 0.6 % 11/14/2024 3:44 PM EDT [facility] Neut # 7.7(H) 1.6 - 6.1 x10(3)/[facility] 11/14/2024 3:44 PM EDT PREFERRED LAB [employer], [facility] Comment:Neutrophils equals s egs plus bands IMMGRAN# 0.1 0.0 - 0.1 x10(3)/[facility] 11/14/2024 3:44 PM EDT [facility] [employer], [facility] Comment:Automated count of m etamyelocytes, myelocytes and promyelocytes. An absolute IG <0.1 is reported as 0.0. Lymph # 1.0(L) 1.2 - 3.9 x10(3)/[facility] 11/14/2024 3:44 PM EDT PREFERRED LAB [facility] Lawrence # 0.8 0.3 - 0.9 x10(3)/[facility] 11/14/2024 3:44 PM EDT PREFERRED [facility], [facility] Eos# 0.4 0.0 - 0.5 x10(3)/[facility] 11/14/2024 3:44 PM EDT [facility] [employer], [facility] Baso # 0.1 0.0 - 0.1 x10(3)/[facility] 11/14/2024 3:44 PM EDT [facility] [employer], [facility] Blood VENOUS BLOOD / Unknown Venipuncture / Unknown 11/14/2024 10:07 AM EDT 11/14/2024 10:07 AM EDT us Amarilis Nolan EMPLOYEE'S REPRESENTATIVE HEMATOLOGY ORDERABLES Fin al Result PREFERRED [facility] [employer], [facility] [address] , [place] [address] * (ABNORMAL) FERRITIN (11/14/2024 10:07 AM EDT) Ferritin 728(H) 30 - 150 ng/mL 11/14/2024 4:07 PM EDT [facility] [employer], [facility] Comment:The lower threshold of 30 is [...] with this immunoassay test. us Amarilis Nolan EMPLOYEE'S REPRESENTATIVE CHEMISTRY ORDERABLES Kell orlando Result [facility], [facility] [address] , [place] [address] * (ABNORMAL) COMPREHENSIVE METABOLIC PANEL (11/14/2024 10:07 [...] 11/14/2024 4:07 PM EDT [facility] Total Protein 7.8 6.4 - 8.3 gm/dL 11/14/2024 4:07 PM EDT [facility] Bili Total 0.6 0.2 - 1.3 mg/dL 11/14/2024 4:07 PM EDT [facility] ALT <5 <=41 U/L 11/14/2024 4:07 PM EDT [facility] AST 23 <=40 U/L 11/14/2024 4:07 PM EDT [facility] Alk Phos 465(H) 36 - 123 U/L 11/14/2024 4:07 PM EDT [facility] eGFR (CKD-EPIcr 2020) 39(L) >=60 mL/min/1.7 3 m2 11/14/2024 4:07 PM EDT [facility], [facility] Comment:Estimated GFR was ca lculated using the CKD-EPIcr (2020) equation refit without race. The equation is recommended by the National Kidney Foundation - [place] [employer] of Nephrology Task Force. Blood VENOUS BLOOD / Unknown Venipuncture / Unknown 11/14/2024 10:07 AM EDT 11/14/2024 10:07 AM EDT Amarilis Nolan APRN CHEMISTRY ORDERABLES Kell l Result [facility] [employer], [facility] [address] , [place] [address] * URINE CULTURE (NO STAIN) (10/26/2024 11:17 AM EDT) Culture Multiple bacterial species isolated from urine consistent with urogenital commensal organisms. 10/27/2024 10:23 PM EDT [facility] [employer], [facility] Urine STRUCTURE OF URINARY TRACT PROPER / Unknown 10/26/2024 11:17 AM EDT 10/26/2024 11:17 AM EDT Amarilis Nolan APRN MICROBIOLOGY - GENERAL OR DERABLES Final Result [facility], [address], [place] [address] * (ABNORMAL) SEP URINALYSIS POC (10/26/2024 [...] 10/26/2024 11:17 AM EDT [facility] [place] [facility] Urobilinogen POC 0.2 0.2, 1.0 10/26/2024 11:17 AM EDT [facility] [place] [facility] Nitrite POC Negative Negative 10/26/2024 11:17 AM EDT [facility] [place] [facility] Leuk Est POC Negative Negative 11:17 AM EDT [facility] [place] Urine STRUCTURE OF URINARY TRACT PROPER / Unknown 10/26/2024 11:14 AM EDT 10/26/2024 11:17 AM EDT us Lab Test POINT OF CARE TEST ORDERABLES Fi nal Result [facility] [place] [address] [place] [address] * (ABNORMAL) HEMOGLOBIN A1C (09/08/2022 2:38 PM EDT) Hgb A1C 7.3(H) 4.2 - 5.6 % 09/08/2022 8:16 PM EDT [facility] [employer] [facility] Est. Avg Glucose 163 mg/dL 09/08/2022 8:16 PM EDT [facility] [employer] [facility] Blood VENOUS BLOOD / Unknown Venipuncture / Unknown 09/08/2022 2:38 PM EDT 09/08/2022 2:38 PM EDT Narrative PREFERRED [employer] - 09/08/2022 8:16 PM EDT REFERENCE RANGE: Normal: 4.0-5.6% Pre-diabetes: 5.7-6.4% Provisional diagnosis of diabetes: >6.4% Hgb F>10% and anything which shortens red cell survival, such as hemolytic anemia, or unstable hemoglobin variants such as HbSS, HbSC, or HbCC, will lower the HbA1c value associated with a given level of glycemic control. us Luis Villasenor MD CHEMISTRY ORDERABLES Final Result [facility] [employer] [facility] [address] , [place] [address] * LIPID PANEL REFLEX (02/09/2020 9:38 AM EDT) Cholesterol 157 <200 mg/dL 02/09/2020 4:17 PM EDT [facility] [employer] [facility] Comment: < 200 Desirable 200 - 239 Borderline High >= 240 High Triglyceride 85 <150 mg/dL 02/09/2020 4:17 PM EDT [facility] [employer] [facility] Comment: < 150 Normal 150 - 199 Borderline High 200 - 499 High >= 500 Very High HDL 41 >=40 mg/dL 02/09/2020 4:17 PM EDT [facility] [employer] [facility] Comment: > 60 Optimal 40 - 60 Acceptable < 40 Low LDL Calculated 99 <100 mg/dL 02/09/2020 4:17 PM EDT [facility] [employer] [facility] Non-HDL-C Calculated 116 <=129 mg/dL 02/09/2020 4:17 PM EDT [facility] [employer], [facility] Comment: <130 Desirable 130-159 Above Desirable 160-189 Borderline High 190-219 High >= 220 Very High Fasting Specimen? Yes None 020 4:17 PM EDT [facility] [employer], [facility] Blood VENOUS BLOOD / Unknown Venipuncture / Unknown 02/09/2020 9:38 AM EDT 02/09/2020 9:42 AM EDT us Luis Villasenor MD CHEMISTRY ORDERABLES Final Result [facility] [address], [place] [address] * HEPATITIS C ANTIBODY - SCREENING (12/04/2016 11:16 AM EDT) Hep C Ab Negative Negative [facility] Blood specimen (specimen) UPPER LIMB STRUCTURE / Unknown 12/04/2016 11:16 AM EDT 12/04/2016 4:52 PM EDT us Luis Villasenor MD HEMATOLOGY ORDERABLES Final Result [facility] [address] [place] [address] from Last 3 Months or Most Recently Relevant to Health Maintenance Insurance [place] [address] [employer] MEDICARE [place] PART A AND B [employer] [address] [address] [place] [address] [place]ICARE [place] PART A AND B [employer] Advance Directives For more information, please contact: [phone] * Full Code (Latest Code Status on File) Date Activated Date Inactivated Comments 10/28/2018 11:51 AM 10/28/2018 9:26 PM Care Teams Overlock Waistline Joiner Relationship Specialty Start Date End Date Luis Villasenor MD [address] [place] [id number] PCP - OBGYN 01/09/10 Luis Villasenor MD [address] [place] [address] PCP - General 01/09/10
--- OUTSIDE RECORDS SUMMARY | 2024-12-27 17:50 | XMS_ITS | Continuity of Care Document ---
Author Organization [facility] Address [address] [place] [address] Care Team Providers Care Door Hanger Name Role Phone ADDY GONZALES General Surgeon CARLOS A COATS Primary Care Provider [phone] VERONIKA RIVER Roll Icer [phone] Assessment No assessment recorded. Plan of Treatment Reminders Order Date Submit Date Provider Last Modified By Organization Details Last Modified Time Details Appointments OV EST 15 2024 10:30A M Tomy King MD Not available Not available Not available Lab carcinoem bryonic Ag, quant, serum or plasma 20[email or web address] [facility], [address] [place], [address], 12/22/2024 09:03:35 CMP, serum or plasma [email or web address] [facility], [address] [place], [address], 12/22/2024 09:03:35 CBC w/ diff [email or web address] [facility], [address] [place], [address], 12/22/2024 09:03:35 Referral None recorded. Procedures None recorded. Surgeries None recorded. Imaging None recorded. Medication Orders None recorded. Patient TargetsNo targets recorded. Patient InstructionsNo instructions recorded. Reason for Referral None Reported. Results Created Date Observation Date Name Description Value Unit Range Abnormal Flag Note LastModifiedBy Organization Detail LastModifiedTime 12/01/19 25 11/30/2024 CBC AUTO W DIFF WBC 9.0 K/uL 4.0-10 .5 Not Available [facility] ([facility]) [address] , [place], [address], 11/30/2024 13:41:32 12/01/19 25 11/30/2024 CBC AUTO W DIFF RBC 3.7 M/mm3 4.2-6. 4 low Not Available [facility] ([facility]) [address], [place], [address], 11/30/2024 13:41:32 12/01/19 25 11/30/2024 CBC AUTO W DIFF HGB 10.2 gm/dL 12.5-1 6.0 low Not Available [facility] ([facility]) [address] , [place], [address], 11/30/2024 13:41:32 12/01/19 25 11/30/2024 CBC AUTO W DIFF HCT 32.3 % 37.0-4 7.0 low Not Available [facility] ([facility]) [address] , [place], [address], 11/30/2024 13:41:32 12/01/19 25 11/30/2024 CBC AUTO W DIFF MCV 86.8 fL 78-100 Not Available [facility] ([facility]) [address] , [place], [address], 11/30/2024 13:41:32 12/01/19 25 11/30/2024 CBC AUTO W DIFF MCH 27.4 pg 27-31 Not Available [facility] ([facility]) [address] , [place], [address], 11/30/2024 13:41:32 12/01/19 25 11/30/2024 CBC AUTO W DIFF MCHC 31.6 g/dL 32-36 low Not Available [facility] ([facility]) [address], [place], [address], 11/30/2024 13:41:32 12/01/19 25 11/30/2024 CBC AUTO W DIFF RDW 14.4 % 11.5-1 4.0 high Not Available [facility] ([facility]) [address], [place], [address], 11/30/2024 13:41:32 12/01/19 25 11/30/2024 CBC AUTO W DIFF platelet count 260 K/uL 150-45 0 Not Available [facility] ([facility]) [address], [place], [address], 11/30/2024 13:41:32 12/01/19 25 11/30/2024 CBC AUTO W DIFF MPV 9.6 fL 6-9.5 high Not Available [facility] ([facility]) [address], [place], [address], 11/30/2024 13:41:32 12/01/19 25 11/30/2024 CBC AUTO W DIFF neutrophil% 72.3 % 43-65 high Not Available [facility] ([facility]) [address], [place], [address], 11/30/2024 13:41:32 12/01/19 25 11/30/2024 CBC AUTO W DIFF lymphocyte% 14.6 % 20.5-4 5.5 low Not Available [facility] ([facility]) [address] , [place], [address], 11/30/2024 13:41:32 12/01/19 25 11/30/2024 CBC AUTO W DIFF monocyte% 8.1 % 5.5-11 .7 Not Available [facility] ([facility]) [address] , [place], [address], 11/30/2024 13:41:32 12/01/19 25 11/30/2024 CBC AUTO W DIFF eosinophil% 3.6 % 0.9-2. 9 high Not Available [facility] ([facility]) [address] [place], [address], 11/30/2024 13:41:32 12/01/19 25 11/30/2024 CBC AUTO W DIFF basophil% 0.7 % 0.2-1. 0 Not Available [facility] ([facility]) [address] [place], [address], 11/30/2024 13:41:32 12/01/19 25 11/30/2024 CBC AUTO W DIFF immature granulocytes % 0.7 % 0.0-0. 8 Not Available [facility] ([facility]) [address] [place], [address], 11/30/2024 13:41:32 12/01/19 25 11/30/2024 CBC AUTO W DIFF nucleated red blood cells % 0.0 % Not Available [facility] ([facility]) [address] [facility], [place], [address], 11/30/2024 13:41:32 12/01/19 25 11/30/2024 CBC AUTO W DIFF neutrophil# 6.5 K/uL 2.2-4. 8 high Not Available [facility] ([facility]) [address] [place], [address], 11/30/2024 13:41:32 12/01/19 25 11/30/2024 CBC AUTO W DIFF lymphocyte# 1.3 cell/ mcL 1.3-2. 9 Not Available [facility] ([facility]) [address] [place], [address], 11/30/2024 13:41:32 12/01/19 25 11/30/2024 CBC AUTO W DIFF monocyte# 0.7 cell/ mcL 0.3-0. 8 Not Available [facility] ([facility]) [address] [place], [address], 11/30/2024 13:41:32 12/01/19 25 11/30/2024 CBC AUTO W DIFF eosinophil# 0.3 cell/ mcL 0-0.2 high Not Available [facility] ([facility]) [address], [place], [address], 11/30/2024 13:41:32 12/01/19 25 11/30/2024 CBC AUTO W DIFF basophil# 0.1 cell/ mcL 0.0-1. 0 Not Available [facility] ([facility]) [address], [place], [address], 11/30/2024 13:41:32 12/01/19 25 11/30/2024 CBC AUTO W DIFF immature gramulocytes # 0.06 K/uL Not Available [facility] ([facility]) [address] , [place], [address], 11/30/2024 13:41:32 12/01/19 25 11/30/2024 CBC AUTO W DIFF nucleated red blood cells # 0.00 K/uL Not Available [facility] ([facility]) [address], [place], [address], 11/30/2024 13:41:32 12/01/19 25 11/30/2024 CBC AUTO W DIFF manual differential NO Not Available [facility] ([facility]) [address], [place], [address], 11/30/2024 13:41:32 12/01/19 25 11/30/2024 COMP METAB OLIC PANEL sodium 129 mmol/ L 136-14 5 low Not Available [facility] ([facility]) [address] , [place], [address], 11/30/2024 13:45:48 12/01/19 25 11/30/2024 COMP METAB OLIC PANEL potassium 4.8 mmol/ L 3.6-5. 0 Not Available [facility] ([facility]) [address] [place], [address], 11/30/2024 13:45:48 12/01/19 25 11/30/2024 COMP METAB OLIC PANEL chloride 93 mmol/ L 98-107 low Not Available [facility] ([facility]) [address] , [place], [address], 11/30/2024 13:45:48 12/01/19 25 11/30/2024 COMP METAB OLIC PANEL carbon dioxide 25.2 mmol/ L 21.0-3 2.0 Not Available [facility] ([facility]) [address] , [place], [address], 11/30/2024 13:45:48 12/01/19 25 11/30/2024 COMP METAB OLIC PANEL anion gap 15.6 Not Available [facility] ([facility]) [address] [place], [address], 11/30/2024 13:45:48 12/01/19 25 11/30/2024 COMP METAB OLIC PANEL glucose 110 mg/dL 70-120 Not Available [facility] ([facility]) [address] [place], [address], 11/30/2024 13:45:48 12/01/19 25 11/30/2024 COMP METAB OLIC PANEL BUN 38 mg/dL 7-18 high Not Available [facility] ([facility]) [address] [place], [address], 11/30/2024 13:45:48 12/01/19 25 11/30/2024 COMP METAB OLIC PANEL creatinine 2.6 mg/dL 0.6-1. 3 high Not Available [facility] ([facility]) [address] [place], [address], 11/30/2024 13:45:48 12/01/19 25 11/30/2024 COMP METAB [...] albrecht ing kiney funct ion. Not Available [facility] ([facility]) [address] , [place], [address], 11/30/2024 13:45:48 12/01/19 25 11/30/2024 COMP METAB OLIC PANEL osmolality (calculated) 279 mOsm/ kg 275-30 1 OSMOL ALITY IS A CALCU LATIO N UTILI ZING THE SERUM /PLAS MA SODIU M, GLUCO SE AND UREA NITRO GEN (BUN) LEVEL S. FOR THE MOST ACCUR ATE RESUL T A MEASU RED SERUM OSMOL ALITY IS SUGTASHA QUEVEDOD. Not Available [facility] ([facility]) [address] , [place], [address], 11/30/2024 13:45:48 12/01/19 25 11/30/2024 COMP METAB OLIC PANEL total protein 8.4 g/dL 6.4-8. 2 high Not Available [facility] ([facility]) [address] , [place], [address], 11/30/2024 13:45:48 12/01/19 25 11/30/2024 COMP METAB OLIC PANEL albumin 2.6 g/dL 3.4-5. 0 low Not Available [facility] ([facility]) [address] , [place], [address], 11/30/2024 13:45:48 12/01/19 25 11/30/2024 COMP METAB OLIC PANEL globulin 5.8 Not Available [facility] ([facility]) [address], [place], [address], 11/30/2024 13:45:48 12/01/19 25 11/30/2024 COMP METAB OLIC PANEL alb/glob ratio 0.4 0.7-2 low Not Available [facility] ([facility]) [address] , [place], [address], 11/30/2024 13:45:48 12/01/19 25 11/30/2024 COMP METAB OLIC PANEL calcium 9.5 mg/dL 8.5-10 .5 Not Available [facility] ([facility]) [address] , [place], [address], 11/30/2024 13:45:48 12/01/19 25 11/30/2024 COMP METAB OLIC PANEL bilirubin total 0.80 mg/dL 0.10-1 .00 Not Available [facility] ([facility]) [address] , [place], [address], 11/30/2024 13:45:48 12/01/19 25 11/30/2024 COMP METAB OLIC PANEL AST (SGOT) 111 U/L 0-37 high Not Available [facility] ([facility]) [address] , [place], [address], 11/30/2024 13:45:48 12/01/19 25 11/30/2024 COMP METAB OLIC PANEL ALT (SGPT) 20 U/L 0-65 Not Available [facility] ([facility]) [address] , [place], [address], 11/30/2024 13:45:48 12/01/19 25 11/30/2024 COMP METAB OLIC PANEL alk phosphatase 490 U/L 46-116 high Not Available [facility] ([facility]) [address] , [place], [address], 11/30/2024 13:45:48 12/01/19 25 12/01/2024 CEA cea [...] t be inter prete d as absol [facility] [place] evide nce of the prese nce or absen ce of [facility]. Perfo rmed at: [facility] [address], [place] [address] Lab Direc tor: Tate staton PhD, Phone : [phone] Not Available [facility] ([facility]) [address] , [place], [address], 12/01/2024 11:12:48 Result Notes None recorded. Problems Name Problem SNOMED Code Status Onset Date Resolution Date Notes Provider Name and Address Organization Details Recorded Time Metastatic malignant neoplasm to liver 89249241 Active 2022 Ghassan Lieberman PA-C [address], [address] , [facility] - [facility] & [place] 3 14:27:25 Mass of colon 708832620 Active 2022 Ghassan Lieberman PA-C [address] [place], [address] , [place] - [facility] & [place] 3 14:27:30 Anemia 784005778 Active 2022 Ghassan Lieberman PA-C [address] [place], [address] , [place] - [facility] & [place] 3 14:27:36 Nausea and vomiting 06573749 Active 2022 Ghassan Lieberman PA-C [address], [place], [address] , [place] - [facility] & [place] 3 14:27:46 Unintentional weight loss 796263875 Active 2022 Ghassan Lieberman PA-C [address], [place], [address] , [facility] & [place] 3 16:13:07 Night sweats 15656279 Active 2022 Ghassan Lieberman PA-C [address], [place], [address] , [facility] & [place] 3 16:13:12 Headache 88130996 Active 2024 Christine Farfan paramjit, [facility] & [place] 5 10:27:12 Problem Notes None recorded. Procedures Surgical History Date Name Laterality Status Provider Name and Address Organization Details Recorded Time 04/29/20 23 Venipuncture completed Hanna Snider PA-C [address], [place], [address], [facility] - [facility] & [place] 04/27/2023 15:05:29 04/15/20 23 Venipuncture completed Stephanie Maravilla [facility] & [place] 04/15/2023 15:24:55 hysterectomy completed Laurel Samuels [facility] & [place] 03/11/2023 15:30:22 extraction of cataract completed Laurel Arvind [facility] & [place] 03/11/2023 15:30:36 excision of colon completed Loree Tadeo [facility] & [place] 04/21/2023 11:32:07 Imaging Results None recorded. Procedure Notes None recorded. Medical Equipment None Reported. Allergies Allergen ID Allergen Name Allergen Category Reaction Reaction Severity Criticality Documentation Date Start Date Code Code System Note Provider Name and Address Organization Details Recorded Time 83408 tetracycl ine medicatio n hives Not available high 02/19/2023 18354 RxNorm Brandy Raheem paramjit, [place] - [facility] & [place] 3 14:03:33 Medications Name Sig [...] 53 /min 18 /min 96/51 mm[Hg] Laurel ELIAS [facility] & [place] 5 11:20:39 Social History Question Answer Notes LastModified by Organizat ion Details LastModified Time Tobacco Smoking Status Never Smoker Brandy MacielCURT geronimo [facility] & [place] 02/19/2023 14:02:59 What Is Your Level Of Caffeine Consumption? None [email or web address] Information not available 02/19/2023 What Was The Date Of Your Most Recent Tobacco Screening? 11/23/2023 [email or web address] Information not available 11/23/2023 Has Tobacco Cessation Counseling Been Provided? No [email or web address] Information not available 07/13/2023 Sex: Unknown Functional Status Question Answer Note LastModified by Organizat ion Details LastModified Time Do you use any illicit or recreational drugs? No [email or web address] Information not available 02/19/2023 Do you or have you ever used any other forms of tobacco or nicotine? No [email or web address] Information not available 02/19/2023 What is your level of alcohol consumption? None [email or web address] Information not available 02/19/2023 Mental Status None recorded. Family History Nothing Reported. Medical History No medical history recorded. Gynecological HistoryNo gynecological history recorded. Obstetrics History GPAL:G 0 P 0 0 0 0 Immunizations Vaccine Type Date Status Note Provider Nam e and Address Organization Details Recorded Time pneumococcal polysaccharide PPV23 7 completed Stephanie Maravilla CURT yusuf [facility] & [place] 12/21/2023 09:56:34 Past Encounters Encounter ID Performer Location Encounter Start Date Encounter Closed Date Diagnosis/Indication Diagnosis SNOMED-CT Code Diagnosis ICD10 Code Diagnosis Note [id number] Hanna Snider PA-C [facility] [address] [place] [address] 11/30/2024 10:57:07 11/30/2024 11:54:59 Antineoplastic chemotherapy regimen 750818468 Z51.11 Week 1 5FU Leucovorin Vectibix on [...] 25, 2024. Malignant tumor of ascending colon 901499807 C18.2 CT scan of the abdomen and [...] 8.2 hematocrit 29.0. MCV 67.9. Platelet count 438077. Normal cell differenti al. Low serum folate [...] study published in September 2022 in the [place] [employer] [facility] of combined Avastin therapy with [...] malignancy . Metastatic malignant neoplasm to liver 97083681 C78.7 CT scan of the abdomen and [...] any treatment for her malignancy . Nausea 323615404 R11.0 As needed Zofran and Phenergan prescribed . Discussed trying scopolamin e patches but her insurance wouldn't cover. Discussed starting Ativan and Reglan is needed for nausea and vomiting. Pain due t o neoplastic disease 5408748062 9102 G89.3 Abdominal pain has improved and pain is controlled with current pain medication s. Anemia 886312705 D64.9 Right-side d colon mass concerning for malignancy . Will assess for any signs of iron deficiency . Hemoglobin previously 8.0. Concern for blood loss from colon mass. Patient reports dark stools. Labs on August 10, 2024 with hemoglobin slightly low at 11.9. She is receiving infusional iron as needed. Adopted 495246861 Z62.89 8 Patient is adopted and discussed hereditary gene panel. Patient does have family history of her son having bladder cancer. [facility] hereditary panel sent Hypokalemia 69126931 E87 .6 Currently taking for potassium 20 mEq daily. Will follow up labs. 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 [...] reports depression has improved. Atopic conjunctivitis 23 0137924 H10.12 Conjunctiv itis due to Vectibix. This has improved. Iron defic iency anemia 19868008 D50.9 Receiving infusional iron as needed. Will continue to monitor. Insomnia 651549426 G47.0 0 Patient has had difficulty sleeping for most of her life. She has tried multiple medication s without relief. She is tried Mirtazapin e and lorazepam without improvemen t of insomnia. Discussed trying trazodone instead. Restless legs 21032447 G 25.81 Patient taking Requip for restless legs. Generalized rash 3174057 06 R21 Rash due to Vectibix. This has improved. Atrial fibrillation 4943 6004 I48.91 Patient has been diagnosed with congestive heart failure and atrial fibrillati on. She has been started on Coumadin. She is following with the Coumadin clinic at [facility]. Congestive heart failure 69797134 I50.9 Patient has been diagnosed with congestive heart failure. She has started lasix and is following with a cardiologi . Cachexia 074529932 R64 Patient has had decreased appetite and weight loss. She is drinking nutritiona l supplement s. Discussed appetite stimulant. Patient previously refused. She has started on Megace. She does not like the taste of Megace. Discussed Megace tablets instead of liquid but patient declines at this time. Will continue to monitor History of deep vein thrombosis 696124787 Z86.718 Patient developed right lower extremity pain [...] repeat venous duplex. Drug therapy finding 309 249842 Z79.01 She continues on Coumadin due to a fib. She is following with the Coumadin clinic at [facility]. Candidiasis of skin 4988 3006 B37.2 Patient has intermitte nt rash consistent with candidiasi s under her breasts folds. She has nystain powder to use as needed. Dehydration 69152408 E86 .0 Patient returns on November 30, 2024. Patient feels dehydrated today. She did not drink much water yesterday. Her appetite is fair and weight is stable. Will give 1 L IV fluids today. [id number] Hanna Snider PA-C [facility] [address] [place] [address] 12/21/2024 10:57:49 12/21/2024 12:59:49 Antineoplastic chemotherapy regimen 560562525 Z51.11 Week 1 5FU Leucovorin Vectibix on [...] 25, 2024. Malignant tumor of ascending colon 328437655 C18.2 CT scan of the abdomen and [...] 8.2 hematocrit 29.0. MCV 67.9. Platelet count 215675. Normal cell differenti al. Low serum folate [...] study published in September 2022 in the [place] [facility] of combined Avastin therapy with [...] this time. Metastatic malignant neoplasm to liver 23754060 C78.7 CT scan of the abdomen and [...] any treatment for her malignancy . Nausea 238142027 R11.0 As needed Zofran and Phenergan prescribed . Discussed trying scopolamin e patches but her insurance wouldn't cover. Discussed starting Ativan and Reglan is needed for nausea and vomiting. Pain due t o neoplastic disease 3659982533 9102 G89.3 Abdominal pain has improved and pain is controlled with current pain medication s. Anemia 138360582 D64.9 Right-side d colon mass concerning for malignancy . Will assess for any signs of iron deficiency . Hemoglobin previously 8.0. Concern for blood loss from colon mass. Patient reports dark stools. Labs on August 10, 2024 with hemoglobin slightly low at 11.9. She is receiving infusional iron as needed. Adopted 185088899 Z62.89 8 Patient is adopted and discussed hereditary gene panel. Patient does have family history of her son having bladder cancer. [facility] hereditary panel sent Hypokalemia 93803630 E87 .6 Currently taking for potassium 20 mEq daily. Will follow up labs. Mixed anxi ety and depressive disorder 829188413 F41.8 Patient returns on November 23, 2023. [...] reports depression has improved. Atopic conjunctivitis 23 8187473 H10.12 Conjunctiv itis due to Vectibix. This has improved. Iron defic iency anemia 56643115 D50.9 Receiving infusional iron as needed. Will continue to monitor. Insomnia 441436925 G47.0 0 Patient has had difficulty sleeping for most of her life. She has tried multiple medication s without relief. She is tried Mirtazapin e and lorazepam without improvemen t of insomnia. Discussed trying trazodone instead. Restless legs 56159624 G 25.81 Patient taking Requip for restless legs. Generalized rash 3774469 06 R21 Rash due to Vectibix. This has improved. Atrial fibrillation 4943 6004 I48.91 Patient has been diagnosed with congestive heart failure and atrial fibrillati on. She has been started on Coumadin. She is following with the Coumadin clinic at [facility]. Congestive heart failure 17466422 I50.9 Patient has been diagnosed with congestive heart failure. She has started lasix and is following with a cardiologi . Cachexia 930023350 R64 Patient has had decreased appetite and weight loss. She is drinking nutritiona l supplement s. Discussed appetite stimulant. Patient previously refused. She has started on Megace. She does not like the taste of Megace. Discussed Megace tablets instead of liquid but patient declines at this time. Will continue to monitor History of deep vein thrombosis 200463955 Z86.718 Patient developed right lower extremity pain [...] repeat venous duplex. Drug therapy finding 309 565183 Z79.01 She continues on Coumadin due to a fib. She is following with the Coumadin clinic at [facility]. Candidiasis of skin 4988 3006 B37.2 Patient has intermitte nt rash consistent with candidiasi s under her breasts folds. She has nystain powder to use as needed. Dehydration 09460758 E86 .0 Patient returns on December 21, [...] Name 12/21/2024 1 [place] Vicky Roblero [id number] Vicky Roblero 12/21/2024 2 [employer] (MEDICARE SUPPLEMENT) Vicky Roblero [id number] Vicky Roblero OBGyn Episode No OBEpisode recorded.
--- OUTSIDE RECORDS SUMMARY | 2024-12-27 17:51 | XMS_ITS | Encounter Summary ---
Author Organization [place] [address] Care Team Providers Care Triple Valve Tester Name Role Phone Luis Villasenor MD Unavailable [phone] Luis Villasenor MD Primary Care Provider Encounter Details Date Type Department Care Team (Late Contact Info) Description 11/28/2024 Orders Only SEP Sarah [address] [place] [id number] Amarilis Nolan, WHITESMITH [address] [place] [address] 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 due to chronic [...] documented as of this encounter Care Teams Triple Valve Tester Relationship Specialty Start Date End Date Luis Villasenor MD [address] [place] [id number] PCP - OBGYN 01/09/10 Luis Villasenor MD [address] [place] [address] PCP - General 01/09/10 documented as of this encounter
--- OUTSIDE RECORDS SUMMARY | 2024-12-27 17:51 | XMS_ITS | Data Portability ---
Author Organization [facility] ADMIN Address [address] [place] [id number] Care Team Providers Care Business Services Representative Name Role Phone ADDY GONZALES General Surgeon CARLOS A COATS Primary Care Provider VERONIKA RIVER Piano Regulator Inspector Assessment No assessment recorded. Plan of Treatment Reminders Order Date Submit Date Provider Last Modified By Organization Details Last Modified Time Details Appointments OV EST 15 2024 10:30A Xavier King MD Not available Not available Not available Lab carcinoem bryonic Ag, quant, serum or plasma 2024 025 [email or web address] Located Within [facility], [address] [place], [address], 12/22/2024 09:03:35 CMP, serum or plasma 2024 025 [email or web address] Located Within [facility], [address] [place], [address], 12/22/2024 09:03:35 CBC w/ diff 2024 025 [email or web address] Located Within [facility], [address] [place], [address], 12/22/2024 09:03:35 carcinoem bryonic Ag, quant, serum or plasma 2024 025 [email or web address] Located Within [facility], [address] [place], [address], 12/07/2024 08:57:02 CMP, serum or plasma [facility]24 [email or web address] [address], [place], [address], 11/30/2024 13:45:48 CBC w/ diff 2024 025 [email or web address] [facility], [address] [facility], [place], [address], 12/07/2024 08:57:02 carcinoem bryonic Ag, quant, serum or plasma [email or web address] [facility] [address] [facility], [address] [place], [address], 11/08/2024 10:04:49 CMP, serum or plasma 2024 025 [facility], [address] [place], [address], 11/01/2024 15:54:32 CBC w/ diff [email or web address] [facility] [address] [facility], [address] [place], [address], 11/08/2024 10:04:49 culture, stool [address] [facility], [address] [place], [address], 09/09/2024 11:40:08 O&P (ova & parasites ), stool [id number] [facility] [address] [facility], [address] [place], [address], 09/09/2024 11:40:09 C diff screen, stool, reflex PCR [email or web address] [facility], [address] [place], [address], 09/09/2024 11:40:09 CBC w/ auto diff 2024 025 [facility], [address] [facility], [place], [address], 09/02/2024 16:09:44 CMP, serum or plasma 2024 025 [facility], [address] [facility], [place], [address], 09/02/2024 14:45:24 CBC w/ auto diff 2024 025 [facility], [address] [place], [address], 08/25/2024 09:46:31 CMP, serum or plasma 2024 025 [facility], [address] [facility], [place], [address], 08/25/2024 09:39:00 carcinoem bryonic Ag, quant, serum or plasma 2024 025 [email or web address] [facility], [address] [place], [address], 09/05/2024 09:16:06 Referral None recorded. Procedures None recorded. Surgeries None recorded. Imaging CT, head + brain, w/o contrast 2024 025 [email or web address] [facility] ([facility]), [address] [place], [address], 09/02/2024 09:16:16 Medication Orders nystatin 100,000 unit/gram topical powder 2024 025 [facility], [address] [place], [address], 11/01/2024 13:56:59 ondansetr on 8 mg disintegr ating tablet [address] [facility], [address] [place], [address], 09/02/2024 12:29:05 Pepcid 20 mg tablet 2024 025 [facility], [address] [place], [address], 11/01/2024 13:10:36 Patient TargetsNo targets recorded. Patient InstructionsNo instructions recorded. Reason for Referral None Reported. Results Created Date Observation Date Name Description Value Unit Range Abnormal Flag Note LastModifiedBy Organization Detail LastModifiedTime 08/11/1908/10/2024 CBC AUTO W DIFF WBC 10.3 K/uL 4.0-10 .5 Not Available [facility] ([facility]) [address], [place], [address], 08/10/2024 10:33:28 08/11/19 25 08/10/2024 CBC AUTO W DIFF RBC 4.0 M/mm3 4.2-6. 4 low Not Available [facility] ([facility]) [address] [facility], [place], [address], 08/10/2024 10:33:28 08/11/19 25 08/10/2024 CBC AUTO W DIFF HGB 11.9 gm/dL 12.5-1 6.0 low Not Available [facility] ([facility]) [address] , [place], [address], 08/10/2024 10:33:28 08/11/19 25 08/10/2024 CBC AUTO W DIFF HCT 36.4 % 37.0-4 7.0 low Not Available [facility] ([facility]) [address] [place], [address], 08/10/2024 10:33:28 08/11/19 25 08/10/2024 CBC AUTO W DIFF MCV 91.7 fL 78-100 Not Available [facility] ([facility]) [address] [place], [address], 08/10/2024 10:33:28 08/11/19 25 08/10/2024 CBC AUTO W DIFF MCH 30.0 pg 27-31 Not Available [facility] ([facility]) [address] , [place], [address], 08/10/2024 10:33:28 08/11/19 25 08/10/2024 CBC AUTO W DIFF MCHC 32.7 g/dL 32-36 Not Available [facility] ([facility]) [address] , [place], [address], 08/10/2024 10:33:28 08/11/19 25 08/10/2024 CBC AUTO W DIFF RDW 16.3 % 11.5-1 4.0 high Not Available [facility] ([facility]) [address], [place], [address], 08/10/2024 10:33:28 08/11/19 25 08/10/2024 CBC AUTO W DIFF platelet count 227 K/uL 150-45 0 Not Available [facility] ([facility]) [address] , [place], [address], 08/10/2024 10:33:28 08/11/19 25 08/10/2024 CBC AUTO W DIFF MPV 9.6 fL 6-9.5 high Not Available [facility] ([facility]) [address] , [place], [address], 08/10/2024 10:33:28 08/11/19 25 08/10/2024 CBC AUTO W DIFF neutrophil% 71.2 % 43-65 high Not Available [facility] ([facility]) [address], [place], [address], 08/10/2024 10:33:28 08/11/19 25 08/10/2024 CBC AUTO W DIFF lymphocyte% 12.6 % 20.5-4 5.5 low Not Available [facility] ([facility]) [address] , [place], [address], 08/10/2024 10:33:28 08/11/19 25 08/10/2024 CBC AUTO W DIFF monocyte% 6.6 % 5.5-11 .7 Not Available [facility] ([facility]) [address], [place], [address], 08/10/2024 10:33:28 08/11/19 25 08/10/2024 CBC AUTO W DIFF eosinophil% 8.6 % 0.9-2. 9 high Not Available [facility] ([facility]) [address], [place], [address], 08/10/2024 10:33:28 08/11/19 25 08/10/2024 CBC AUTO W DIFF basophil% 0.7 % 0.2-1. 0 Not Available [facility] ([facility]) [address], [place], [address], 08/10/2024 10:33:28 08/11/19 25 08/10/2024 CBC AUTO W DIFF immature granulocytes % 0.3 % 0.0-0. 8 Not Available [facility] ([facility]) [address], [place], [address], 08/10/2024 10:33:28 08/11/19 25 08/10/2024 CBC AUTO W DIFF nucleated red blood cells % 0.0 % Not Available [facility] ([facility]) [address], [place], [address], 08/10/2024 10:33:28 08/11/19 25 08/10/2024 CBC AUTO W DIFF neutrophil# 7.3 K/uL 2.2-4. 8 high Not Available [facility] ([facility]) [address], [place], [address], 08/10/2024 10:33:28 08/11/19 25 08/10/2024 CBC AUTO W DIFF lymphocyte# 1.3 cell/ mcL 1.3-2. 9 Not Available [facility] ([facility]) [address], [place], [address], 08/10/2024 10:33:28 08/11/19 25 08/10/2024 CBC AUTO W DIFF monocyte# 0.7 cell/ mcL 0.3-0. 8 Not Available [facility] ([facility]) [address] [facility], [place], [address], 08/10/2024 10:33:28 08/11/19 25 08/10/2024 CBC AUTO W DIFF eosinophil# 0.9 cell/ mcL 0-0.2 high Not Available [facility] ([facility]) [address] [facility], [place], [address], 08/10/2024 10:33:28 08/11/19 25 08/10/2024 CBC AUTO W DIFF basophil# 0.1 cell/ mcL 0.0-1. 0 Not Available [facility] ([facility]) [address] [facility], [place], [address], 08/10/2024 10:33:28 08/11/19 25 08/10/2024 CBC AUTO W DIFF immature gramulocytes # 0.03 K/uL Not Available [facility] ([facility]) [address] [facility], [place], [address], 08/10/2024 10:33:28 08/11/19 25 08/10/2024 CBC AUTO W DIFF nucleated red blood cells # 0.00 K/uL Not Available [facility] ([facility]) [address] [facility], [place], [address], 08/10/2024 10:33:28 08/11/19 25 08/10/2024 CBC AUTO W DIFF manual differential NO Not Available [facility] ([facility]) [address], [place], [address], 08/10/2024 10:33:28 08/11/19 25 08/10/2024 COMP METAB OLIC PANEL sodium 140 mmol/ L 136-14 5 Not Available [facility] ([facility]) [address] , [place], [address], 08/10/2024 10:56:34 08/11/19 25 08/10/2024 COMP METAB OLIC PANEL potassium 4.1 mmol/ L 3.6-5. 0 Not Available [facility] ([facility]) [address] , [place], [address], 08/10/2024 10:56:34 08/11/19 25 08/10/2024 COMP METAB OLIC PANEL chloride 104 mmol/ L 98-107 Not Available [facility] ([facility]) [address] , [place], [address], 08/10/2024 10:56:34 08/11/19 25 08/10/2024 COMP METAB OLIC PANEL carbon dioxide 22.7 mmol/ L 21.0-3 2.0 Not Available [facility] ([facility]) [address] , [place], [address], 08/10/2024 10:56:34 08/11/19 25 08/10/2024 COMP METAB OLIC PANEL anion gap 17.4 Not Available [facility] ([facility]) [address] , [place], [address], 08/10/2024 10:56:34 08/11/19 25 08/10/2024 COMP METAB OLIC PANEL glucose 180 mg/dL 70-120 high Not Available [facility] ([facility]) [address] , [place], [address], 08/10/2024 10:56:34 08/11/19 25 08/10/2024 COMP METAB OLIC PANEL BUN 13 mg/dL 7-18 Not Available [facility] ([facility]) [address], [place], [address], 08/10/2024 10:56:34 08/11/19 25 08/10/2024 COMP METAB OLIC PANEL creatinine 1.05 mg/dL 0.6-1. 3 Not Available [facility] ([facility]) [address], [place], [address], 08/10/2024 10:56:34 08/11/19 25 08/10/2024 COMP METAB [...] funct ion. Not Available [facility] ([facility]) [address], [place], [address], 08/10/2024 10:56:34 08/11/19 25 08/10/2024 COMP METAB OLIC PANEL total protein 6.9 g/dL 6.4-8. 2 Not Available [facility] ([facility]) [address], [place], [address], 08/10/2024 10:56:34 08/11/19 25 08/10/2024 COMP METAB OLIC PANEL albumin 4.3 g/dL 3.4-5. 0 Not Available [facility] ([facility]) [address], [place], [address], 08/10/2024 10:56:34 08/11/19 25 08/10/2024 COMP METAB OLIC PANEL globulin 2.6 Not Available [facility] ([facility]) [address], [place], [address], 08/10/2024 10:56:34 08/11/19 25 08/10/2024 COMP METAB OLIC PANEL alb/glob ratio 1.7 0.7-2 Not Available [facility] ([facility]) [address], [place], [address], 08/10/2024 10:56:34 08/11/19 25 08/10/2024 COMP METAB OLIC PANEL calcium 8.9 mg/dL 8.5-10 .5 Not Available [facility] ([facility]) [address], [place], [address], 08/10/2024 10:56:34 08/11/19 25 08/10/2024 COMP METAB OLIC PANEL bilirubin total 0.6 mg/dL 0.10-1 .00 Not Available [facility] ([facility]) [address] , [place], [address], 08/10/2024 10:56:34 08/11/19 25 08/10/2024 COMP METAB OLIC PANEL AST (SGOT) 40 U/L 0-37 high Not Available [facility] ([facility]) [address] , [place], [address], 08/10/2024 10:56:34 08/11/19 25 08/10/2024 COMP METAB OLIC PANEL ALT (SGPT) 23 U/L 0-65 Not Available [facility] ([facility]) [address] , [place], [address], 08/10/2024 10:56:34 08/11/19 25 08/10/2024 COMP METAB OLIC PANEL alk phosphatase 234 U/L 46-116 high Not Available [facility] ([facility]) [address] , [place], [address], 08/10/2024 10:56:34 08/11/19 25 08/10/2024 MAGNE SIUM magnesium 2.1 mg/dL 1.8-2. 4 Not Available [facility] ([facility]) [address], [place], [address], 08/10/2024 10:57:38 08/11/19 25 08/10/2024 PT (PROT HROMB IN TIME) W INR prothrombin time 36.2 secon ds 9.3-11 .4 high Not Available [facility] ([facility]) [address], [place], [address], 08/10/2024 10:58:45 08/11/19 25 08/10/2024 PT (PROT [...] Mecha nical Heart Valve s Not Available [facility] ([facility]) [address] [facility], [place], [address], 08/10/2024 10:58:45 08/26/19 25 08/25/2024 COMP METAB OLIC PANEL sodium 137 mmol/ L 136-14 5 Not Available [facility] ([facility]) [address] [place], [address], 08/25/2024 09:39:00 08/26/19 25 08/25/2024 COMP METAB OLIC PANEL potassium 4.1 mmol/ L 3.6-5. 0 Not Available [facility] ([facility]) [address] [place], [address], 08/25/2024 09:39:00 08/26/19 25 08/25/2024 COMP METAB OLIC PANEL chloride 101 mmol/ L 98-107 Not Available [facility] ([facility]) [address] , [place], [address], 08/25/2024 09:39:00 08/26/19 25 08/25/2024 COMP METAB OLIC PANEL carbon dioxide 23.8 mmol/ L 21.0-3 2.0 Not Available [facility] ([facility]) [address], [place], [address], 08/25/2024 09:39:00 08/26/19 25 08/25/2024 COMP METAB OLIC PANEL anion gap 16.3 Not Available [facility] ([facility]) [address], [place], [address], 08/25/2024 09:39:00 08/26/19 25 08/25/2024 COMP METAB OLIC PANEL glucose 169 mg/dL 70-120 high Not Available [facility] ([facility]) [address], [place], [address], 08/25/2024 09:39:00 08/26/19 25 08/25/2024 COMP METAB OLIC PANEL BUN 17 mg/dL 7-18 Not Available [facility] ([facility]) [address], [place], [address], 08/25/2024 09:39:00 08/26/19 25 08/25/2024 COMP METAB OLIC PANEL creatinine 1.5 mg/dL 0.6-1. 3 high Not Available [facility] ([facility]) [address] [place], [address], 08/25/2024 09:39:00 08/26/19 25 08/25/2024 COMP METAB [...] funct ion. Not Available [facility] ([facility]) [address], [place], [address], 08/25/2024 09:39:00 08/26/19 25 08/25/2024 COMP METAB OLIC PANEL osmolality (calculated) 291 mOsm/ kg 275-30 1 OSMOL ALITY IS A CALCU LATIO N UTILI ZING THE SERUM /PLAS MA SODIU M, GLUCO SE AND UREA NITRO GEN (BUN) LEVEL S. FOR THE MOST ACCUR ATE RESUL T A MEASU RED SERUM OSMOL ALITY IS SUGGE STED. Not Available [facility] ([facility]) [address] [facility], [place], [address], 08/25/2024 09:39:00 08/26/19 25 08/25/2024 COMP METAB OLIC PANEL total protein 7.2 g/dL 6.4-8. 2 Not Available [facility] ([facility]) [address] [facility], [place], [address], 08/25/2024 09:39:00 08/26/19 25 08/25/2024 COMP METAB OLIC PANEL albumin 2.9 g/dL 3.4-5. 0 low Not Available [facility] ([facility]) [address] [place], [address], 08/25/2024 09:39:00 08/26/19 25 08/25/2024 COMP METAB OLIC PANEL globulin 4.3 Not Available [facility] ([facility]) [address] [place], [address], 08/25/2024 09:39:00 08/26/19 25 08/25/2024 COMP METAB OLIC PANEL alb/glob ratio 0.7 0.7-2 Not Available [facility] ([facility]) [address], [place], [address], 08/25/2024 09:39:00 08/26/19 25 08/25/2024 COMP METAB OLIC PANEL calcium 8.9 mg/dL 8.5-10 .5 Not Available [facility] ([facility]) [address] , [place], [address], 08/25/2024 09:39:00 08/26/19 25 08/25/2024 COMP METAB OLIC PANEL bilirubin total 0.50 mg/dL 0.10-1 .00 Not Available [facility] ([facility]) [address], [place], [address], 08/25/2024 09:39:00 08/26/19 25 08/25/2024 COMP METAB OLIC PANEL AST (SGOT) 18 U/L 0-37 Not Available [facility] ([facility]) [address] , [place], [address], 08/25/2024 09:39:00 08/26/19 25 08/25/2024 COMP METAB OLIC PANEL ALT (SGPT) 16 U/L 0-65 Not Available [facility] ([facility]) [address] , [place], [address], 08/25/2024 09:39:00 08/26/19 25 08/25/2024 COMP METAB OLIC PANEL alk phosphatase 218 U/L 46-116 high Not Available [facility] ([facility]) [address] , [place], [address], 08/25/2024 09:39:00 08/26/19 25 08/25/2024 MAGNE SIUM magnesium 1.8 mg/dL 1.8-2. 4 Not Available [facility] ([facility]) [address], [place], [address], 08/25/2024 09:39:02 08/26/19 25 08/25/2024 CBC AUTO W DIFF WBC 3.5 K/uL 4.0-10 .5 low Not Available [facility] ([facility]) [address], [place], [address], 08/25/2024 09:46:31 08/26/19 25 08/25/2024 CBC AUTO W DIFF RBC 3.9 M/mm3 4.2-6. 4 low Not Available [facility] ([facility]) [address], [place], [address], 08/25/2024 09:46:31 08/26/19 25 08/25/2024 CBC AUTO W DIFF HGB 11.4 gm/dL 12.5-1 6.0 low Not Available [facility] ([facility]) [address], [place], [address], 08/25/2024 09:46:31 08/26/19 25 08/25/2024 CBC AUTO W DIFF HCT 34.6 % 37.0-4 7.0 low Not Available [facility] ([facility]) [address], [place], [address], 08/25/2024 09:46:31 08/26/19 25 08/25/2024 CBC AUTO W DIFF MCV 88.7 fL 78-100 Not Available [facility] ([facility]) [address], [place], [address], 08/25/2024 09:46:31 08/26/19 25 08/25/2024 CBC AUTO W DIFF MCH 29.2 pg 27-31 Not Available [facility] ([facility]) [address], [place], [address], 08/25/2024 09:46:31 08/26/19 25 08/25/2024 CBC AUTO W DIFF MCHC 32.9 g/dL 32-36 Not Available [facility] ([facility]) [address], [place], [address], 08/25/2024 09:46:31 08/26/19 25 08/25/2024 CBC AUTO W DIFF RDW 15.6 % 11.5-1 4.0 high Not Available [facility] ([facility]) [address] , [place], [address], 08/25/2024 09:46:31 08/26/19 25 08/25/2024 CBC AUTO W DIFF platelet count 295 K/uL 150-45 0 Not Available [facility] ([facility]) [address] , [place], [address], 08/25/2024 09:46:31 08/26/19 25 08/25/2024 CBC AUTO W DIFF MPV 9.0 fL 6-9.5 Not Available [facility] ([facility]) [address], [place], [address], 08/25/2024 09:46:31 08/26/19 25 08/25/2024 CBC AUTO W DIFF neutrophil% 39.6 % 43-65 low Not Available [facility] ([facility]) [address] , [place], [address], 08/25/2024 09:46:31 08/26/19 25 08/25/2024 CBC AUTO W DIFF lymphocyte% 41.8 % 20.5-4 5.5 Not Available [facility] ([facility]) [address] [place], [address], 08/25/2024 09:46:31 08/26/19 25 08/25/2024 CBC AUTO W DIFF monocyte% 13.4 % 5.5-11 .7 high Not Available [facility] ([facility]) [address] [place], [address], 08/25/2024 09:46:31 08/26/19 25 08/25/2024 CBC AUTO W DIFF eosinophil% 3.7 % 0.9-2. 9 high Not Available [facility] ([facility]) [address] , [place], [address], 08/25/2024 09:46:31 08/26/19 25 08/25/2024 CBC AUTO W DIFF basophil% 0.9 % 0.2-1. 0 Not Available [facility] ([facility]) [address], [place], [address], 08/25/2024 09:46:31 08/26/19 25 08/25/2024 CBC AUTO W DIFF immature granulocytes % 0.6 % 0.0-0. 8 Not Available [facility] ([facility]) [address], [place], [address], 08/25/2024 09:46:31 08/26/19 25 08/25/2024 CBC AUTO W DIFF nucleated red blood cells % 0.0 % Not Available [facility] ([facility]) [address], [place], [address], 08/25/2024 09:46:31 08/26/19 25 08/25/2024 CBC AUTO W DIFF neutrophil# 1.4 K/uL 2.2-4. 8 low Not Available [facility] ([facility]) [address], [place], [address], 08/25/2024 09:46:31 08/26/19 25 08/25/2024 CBC AUTO W DIFF lymphocyte# 1.5 cell/ mcL 1.3-2. 9 Not Available [facility] ([facility]) [address], [place], [address], 08/25/2024 09:46:31 08/26/19 25 08/25/2024 CBC AUTO W DIFF monocyte# 0.5 cell/ mcL 0.3-0. 8 Not Available [facility] ([facility] [address] [place], [address], 08/25/2024 09:46:31 08/26/19 25 08/25/2024 CBC AUTO W DIFF eosinophil# 0.1 cell/ mcL 0-0.2 Not Available [facility] ([facility]) [address], [place], [address], 08/25/2024 09:46:31 08/26/19 25 08/25/2024 CBC AUTO W DIFF basophil# 0.0 cell/ mcL 0.0-1. 0 Not Available [facility] ([facility]) [address], [place], [address], 08/25/2024 09:46:31 08/26/19 25 08/25/2024 CBC AUTO W DIFF immature gramulocytes # 0.02 K/uL Not Available [facility] ([facility]) [address], [place], [address], 08/25/2024 09:46:31 08/26/19 25 08/25/2024 CBC AUTO W DIFF nucleated red blood cells # 0.00 K/uL Not Available [facility] ([facility]) [address], [place], [address], 08/25/2024 09:46:31 08/26/19 25 08/25/2024 CBC AUTO W DIFF manual differential NO Not Available [facility] ([facility]) [address], [place], [address], 08/25/2024 09:46:31 08/26/19 25 08/25/2024 PT (PROT HROMB IN TIME) W INR prothrombin time 77.1 secon ds 9.3-11 .4 critical high Not Available [facility] ([facility]) [address], [place], [address], 08/25/2024 10:02:40 08/26/19 25 08/25/2024 PT (PROT [...] Mecha nical Heart Valve s Not Available [facility] ([facility]) [address] [place], [address], 08/25/2024 10:02:40 09/03/19 25 09/02/2024 COMP METAB OLIC PANEL sodium 131 mmol/ L 136-14 5 low Not Available [facility] ([facility]) [address] [place], [address], 09/02/2024 14:45:24 09/03/19 25 09/02/2024 COMP METAB OLIC PANEL potassium 4.0 mmol/ L 3.6-5. 0 Not Available [facility] ([facility]) [address] [place], [address], 09/02/2024 14:45:24 09/03/19 25 09/02/2024 COMP METAB OLIC PANEL chloride 99 mmol/ L 98-107 Not Available [facility] ([facility]) [address] [place], [address], 09/02/2024 14:45:24 09/03/19 25 09/02/2024 COMP METAB OLIC PANEL carbon dioxide 18.6 mmol/ L 21.0-3 2.0 low Not Available [facility] ([facility]) [address] [place], [address], 09/02/2024 14:45:24 09/03/19 25 09/02/2024 COMP METAB OLIC PANEL anion gap 17.4 Not Available [facility] ([facility]) [address] [place], [address], 09/02/2024 14:45:24 09/03/19 25 09/02/2024 COMP METAB OLIC PANEL glucose 145 mg/dL 70-120 high Not Available [facility] ([facility]) [address], [place], [address], 09/02/2024 14:45:24 09/03/19 25 09/02/2024 COMP METAB OLIC PANEL BUN 36 mg/dL 7-18 high Not Available [facility] ([facility]) [address], [place], [address], 09/02/2024 14:45:24 09/03/19 25 09/02/2024 COMP METAB OLIC PANEL creatinine 1.5 mg/dL 0.6-1. 3 high Not Available [facility] ([facility]) [address], [place], [address], 09/02/2024 14:45:24 09/03/19 25 09/02/2024 COMP METAB [...] funct ion. Not Available [facility] ([facility]) [address], [place], [address], 09/02/2024 14:45:24 09/03/19 25 09/02/2024 COMP METAB OLIC PANEL osmolality (calculated) 284 mOsm/ kg 275-30 1 OSMOL ALITY IS A CALCU LATIO N UTILI ZING THE SERUM /PLAS MA SODIU M, GLUCO SE AND UREA NITRO GEN (BUN) LEVEL S. FOR THE MOST ACCUR ATE RESUL T A MEASU RED SERUM OSMOL ALITY IS SUGGE STED. Not Available [facility] ([facility]) [address], [place], [address], 09/02/2024 14:45:24 09/03/19 25 09/02/2024 COMP METAB OLIC PANEL total protein 5.9 g/dL 6.4-8. 2 low Not Available [facility] ([facility]) [address] , [place], [address], 09/02/2024 14:45:24 09/03/19 25 09/02/2024 COMP METAB OLIC PANEL albumin 2.1 g/dL 3.4-5. 0 low Not Available [facility] [facility] [address] , [place], [address], 09/02/2024 14:45:24 09/03/19 25 09/02/2024 COMP METAB OLIC PANEL globulin 3.8 Not Available [facility] ([facility]) [address] , [place], [address], 09/02/2024 14:45:24 09/03/19 25 09/02/2024 COMP METAB OLIC PANEL alb/glob ratio 0.6 0.7-2 low Not Available [facility] ([facility]) [address], [place], [address], 09/02/2024 14:45:24 09/03/19 25 09/02/2024 COMP METAB OLIC PANEL calcium 8.1 mg/dL 8.5-10 .5 low Not Available [facility] ([facility]) [address] , [place], [address], 09/02/2024 14:45:24 09/03/19 25 09/02/2024 COMP METAB OLIC PANEL bilirubin total 1.10 mg/dL 0.10-1 .00 high Not Available [facility] ([facility]) [address], [place], [address], 09/02/2024 14:45:24 09/03/19 25 09/02/2024 COMP METAB OLIC PANEL AST (SGOT) 13 U/L 0-37 Not Available [facility] ([facility]) [address], [place], [address], 09/02/2024 14:45:24 09/03/19 25 09/02/2024 COMP METAB OLIC PANEL ALT (SGPT) 13 U/L 0-65 Not Available [facility] ([facility]) [address], [place], [address], 09/02/2024 14:45:24 09/03/19 25 09/02/2024 COMP METAB OLIC PANEL alk phosphatase 188 U/L 46-116 high Not Available [facility] ([facility]) [address], [place], [address], 09/02/2024 14:45:24 09/03/19 25 09/02/2024 CBC AUTO W DIFF WBC 1.2 K/uL 4.0-10 .5 critical low Not Available [facility] ([facility]) [address] , [place], [address], 09/02/2024 16:09:44 09/03/19 25 09/02/2024 CBC AUTO W DIFF RBC 3.4 M/mm3 4.2-6. 4 low Not Available [facility] ([facility]) [address] , [place], [address], 09/02/2024 16:09:44 09/03/19 25 09/02/2024 CBC AUTO W DIFF HGB 9.6 gm/dL 12.5-1 6.0 low Not Available [facility] ([facility]) [address] , [place], [address], 09/02/2024 16:09:44 09/03/19 25 09/02/2024 CBC AUTO W DIFF HCT 28.7 % 37.0-4 7.0 low Not Available [facility] ([facility]) [address], [place], [address], 09/02/2024 16:09:44 09/03/19 25 09/02/2024 CBC AUTO W DIFF MCV 85.4 fL 78-100 Not Available [facility] ([facility]) [address], [place], [address], 09/02/2024 16:09:44 09/03/19 25 09/02/2024 CBC AUTO W DIFF MCH 28.6 pg 27-31 Not Available [facility] ([facility]) [address], [place], [address], 09/02/2024 16:09:44 09/03/19 25 09/02/2024 CBC AUTO W DIFF MCHC 33.4 g/dL 32-36 Not Available [facility] ([facility]) [address] , [place], [address], 09/02/2024 16:09:44 09/03/19 25 09/02/2024 CBC AUTO W DIFF RDW 15.9 % 11.5-1 4.0 high Not Available [facility] ([facility]) [address] , [place], [address], 09/02/2024 16:09:44 09/03/19 25 09/02/2024 CBC AUTO W DIFF platelet count 213 K/uL 150-45 0 Not Available [facility] ([facility]) [address], [place], [address], 09/02/2024 16:09:44 09/03/19 25 09/02/2024 CBC AUTO W DIFF MPV 9.6 fL 6-9.5 high Not Available [facility] ([facility]) [address] , [place], [address], 09/02/2024 16:09:44 09/03/19 25 09/02/2024 CBC AUTO W DIFF neutrophil% 57.7 % 43-65 Not Available [facility] ([facility]) [address] [place], [address], 09/02/2024 16:09:44 09/03/19 25 09/02/2024 CBC AUTO W DIFF lymphocyte% 25.4 % 20.5-4 5.5 Not Available [facility] ([facility]) [address] [place], [address], 09/02/2024 16:09:44 09/03/19 25 09/02/2024 CBC AUTO W DIFF monocyte% 15.3 % 5.5-11 .7 high Not Available [facility] ([facility]) [address] , [place], [address], 09/02/2024 16:09:44 09/03/19 25 09/02/2024 CBC AUTO W DIFF eosinophil% 0.0 % 0.9-2. 9 low Not Available [facility] ([facility]) [address] [place], [address], 09/02/2024 16:09:44 09/03/19 25 09/02/2024 CBC AUTO W DIFF basophil% 0.8 % 0.2-1. 0 Not Available [facility] ([facility]) [address] [place], [address], 09/02/2024 16:09:44 09/03/19 25 09/02/2024 CBC AUTO W DIFF immature granulocytes % 0.8 % 0.0-0. 8 Not Available [facility] ([facility]) [address] [place], [address], 09/02/2024 16:09:44 09/03/19 25 09/02/2024 CBC AUTO W DIFF nucleated red blood cells % 0.0 % Not Available [facility] ([facility]) [address] [place], [address], 09/02/2024 16:09:44 09/03/19 25 09/02/2024 CBC AUTO W DIFF neutrophil# 0.7 K/uL 2.2-4. 8 low Not Available [facility] ([facility]) [address], [place], [address], 09/02/2024 16:09:44 09/03/19 25 09/02/2024 CBC AUTO W DIFF lymphocyte# 0.3 cell/ mcL 1.3-2. 9 low Not Available [facility] ([facility]) [address] [facility], [place], [address], 09/02/2024 16:09:44 09/03/19 25 09/02/2024 CBC AUTO W DIFF monocyte# 0.2 cell/ mcL 0.3-0. 8 low Not Available [facility] ([facility]) [address] [facility], [place], [address], 09/02/2024 16:09:44 09/03/19 25 09/02/2024 CBC AUTO W DIFF eosinophil# 0.0 cell/ mcL 0-0.2 Not Available [facility] ([facility]) [address] [place], [address], 09/02/2024 16:09:44 09/03/19 25 09/02/2024 CBC AUTO W DIFF basophil# 0.0 cell/ mcL 0.0-1. 0 Not Available [facility] ([facility]) [address] [place], [address], 09/02/2024 16:09:44 09/03/19 25 09/02/2024 CBC AUTO W DIFF immature gramulocytes # 0.01 K/uL Not Available [facility] ([facility]) [address] [place], [address], 09/02/2024 16:09:44 09/03/19 25 09/02/2024 CBC AUTO W DIFF nucleated red blood cells # 0.00 K/uL Not Available [facility] ([facility]) [address] , [place], [address], 09/02/2024 16:09:44 09/03/19 25 09/02/2024 CBC AUTO W DIFF manual differential YES Not Available [facility] ([facility]) [address], [place], [address], 09/02/2024 16:09:44 09/03/19 25 09/02/2024 CBC AUTO W DIFF segmented neutrophil 54 % 42-76 Not Available [facility] ([facility]) [address], [place], [address], 09/02/2024 16:09:44 09/03/19 25 09/02/2024 CBC AUTO W DIFF band neutrophil 8 % 0-8 Not Available [facility] ([facility]) [address], [place], [address], 09/02/2024 16:09:44 09/03/19 25 09/02/2024 CBC AUTO W DIFF lymphocyte 16 % 15-41 Not Available [facility] ([facility]) [address], [place], [address], 09/02/2024 16:09:44 09/03/19 25 09/02/2024 CBC AUTO W DIFF monocyte 20 % 2-9 high Not Available [facility] ([facility]) [address], [place], [address], 09/02/2024 16:09:44 09/03/19 25 09/02/2024 CBC AUTO W DIFF eosinophil 2 % 0-3 Not Available [facility] ([facility]) [address], [place], [address], 09/02/2024 16:09:44 09/03/19 25 09/02/2024 CBC AUTO W DIFF platelet estimate ADEQUA TE adequa te Not Available [facility] ([facility]) [address], [place], [address], 09/02/2024 16:09:44 09/03/19 25 09/02/2024 CBC AUTO W DIFF platelet morphology NORMAL normal Not Available [facility] ([facility]) [address], [place], [address], 09/02/2024 16:09:44 09/03/19 25 09/02/2024 CBC AUTO W DIFF RBC morphology NORMAL normal Not Available [facility] ([facility]) [address], [place], [address], 09/02/2024 16:09:44 11/02/19 25 11/01/2024 CBC AUTO W DIFF WBC 6.7 K/uL 4.0-10 .5 Not Available [facility] ([facility]) [address], [place], [address], 11/01/2024 15:32:39 11/02/19 25 11/01/2024 CBC AUTO W DIFF RBC 3.2 M/mm3 4.2-6. 4 low Not Available [facility] ([facility]) [address], [place], [address], 11/01/2024 15:32:39 11/02/19 25 11/01/2024 CBC AUTO W DIFF HGB 9.0 gm/dL 12.5-1 6.0 low Not Available [facility] ([facility]) [address], [place], [address], 11/01/2024 15:32:39 11/02/19 25 11/01/2024 CBC AUTO W DIFF HCT 28.9 % 37.0-4 7.0 low Not Available [facility] ([facility]) [address] , [place], [address], 11/01/2024 15:32:39 11/02/19 25 11/01/2024 CBC AUTO W DIFF MCV 90.9 fL 78-100 Not Available [facility] ([facility]) [address], [place], [address], 11/01/2024 15:32:39 11/02/19 25 11/01/2024 CBC AUTO W DIFF MCH 28.3 pg 27-31 Not Available [facility] ([facility]) [address], [place], [address], 11/01/2024 15:32:39 11/02/19 25 11/01/2024 CBC AUTO W DIFF MCHC 31.1 g/dL 32-36 low Not Available [facility] ([facility]) [address], [place], [address], 11/01/2024 15:32:39 11/02/19 25 11/01/2024 CBC AUTO W DIFF RDW 14.5 % 11.5-1 4.0 high Not Available [facility] ([facility]) [address], [place], [address], 11/01/2024 15:32:39 11/02/19 25 11/01/2024 CBC AUTO W DIFF platelet count 257 K/uL 150-45 0 Not Available [facility] ([facility]) [address], [place], [address], 11/01/2024 15:32:39 11/02/19 25 11/01/2024 CBC AUTO W DIFF MPV 9.6 fL 6-9.5 high Not Available [facility] ([facility]) [address], [place], [address], 11/01/2024 15:32:39 11/02/19 25 11/01/2024 CBC AUTO W DIFF neutrophil% 75.3 % 43-65 high Not Available [facility] ([facility]) [address] [place], [address], 11/01/2024 15:32:39 11/02/19 25 11/01/2024 CBC AUTO W DIFF lymphocyte% 13.9 % 20.5-4 5.5 low Not Available [facility] ([facility]) [address] [place], [address], 11/01/2024 15:32:39 11/02/19 25 11/01/2024 CBC AUTO W DIFF monocyte% 7.5 % 5.5-11 .7 Not Available [facility] ([facility]) [address] [place], [address], 11/01/2024 15:32:39 11/02/19 25 11/01/2024 CBC AUTO W DIFF eosinophil% 2.2 % 0.9-2. 9 Not Available [facility] ([facility]) [address] [place], [address], 11/01/2024 15:32:39 11/02/19 25 11/01/2024 CBC AUTO W DIFF basophil% 0.4 % 0.2-1. 0 Not Available [facility] ([facility]) [address] [place], [address], 11/01/2024 15:32:39 11/02/19 25 11/01/2024 CBC AUTO W DIFF immature granulocytes % 0.7 % 0.0-0. 8 Not Available [facility] ([facility]) [address] [place], [address], 11/01/2024 15:32:39 11/02/19 25 11/01/2024 CBC AUTO W DIFF nucleated red blood cells % 0.0 % Not Available [facility] ([facility]) [address] [place], [address], 11/01/2024 15:32:39 11/02/19 25 11/01/2024 CBC AUTO W DIFF neutrophil# 5.0 K/uL 2.2-4. 8 high Not Available [facility] ([facility]) [address] [facility], [place], [address], 11/01/2024 15:32:39 11/02/19 25 11/01/2024 CBC AUTO W DIFF lymphocyte# 0.9 cell/ mcL 1.3-2. 9 low Not Available [facility] ([facility]) [address] [facility], [place], [address], 11/01/2024 15:32:39 11/02/19 25 11/01/2024 CBC AUTO W DIFF monocyte# 0.5 cell/ mcL 0.3-0. 8 Not Available [facility] ([facility]) [address] [place], [address], 11/01/2024 15:32:39 11/02/19 25 11/01/2024 CBC AUTO W DIFF eosinophil# 0.2 cell/ mcL 0-0.2 Not Available [facility] ([facility]) [address] [place], [address], 11/01/2024 15:32:39 11/02/19 25 11/01/2024 CBC AUTO W DIFF basophil# 0.0 cell/ mcL 0.0-1. 0 Not Available [facility] ([facility]) [address] [place], [address], 11/01/2024 15:32:39 11/02/19 25 11/01/2024 CBC AUTO W DIFF immature gramulocytes # 0.05 K/uL Not Available [facility] ([facility]) [address] [place], [address], 11/01/2024 15:32:39 11/02/19 25 11/01/2024 CBC AUTO W DIFF nucleated red blood cells # 0.00 K/uL Not Available [facility] ([facility]) [address], [place], [address], 11/01/2024 15:32:39 11/02/19 25 11/01/2024 CBC AUTO W DIFF manual differential NO Not Available [facility] ([facility]) [address], [place], [address], 11/01/2024 15:32:39 11/02/19 25 11/01/2024 COMP METAB OLIC PANEL sodium 139 mmol/ L 136-14 5 Not Available [facility] ([facility]) [address], [place], [address], 11/01/2024 15:54:32 11/02/19 25 11/01/2024 COMP METAB OLIC PANEL potassium 3.6 mmol/ L 3.6-5. 0 Not Available [facility] ([facility]) [address], [place], [address], 11/01/2024 15:54:32 11/02/19 25 11/01/2024 COMP METAB OLIC PANEL chloride 103 mmol/ L 98-107 Not Available [facility] ([facility]) [address], [place], [address], 11/01/2024 15:54:32 11/02/19 25 11/01/2024 COMP METAB OLIC PANEL carbon dioxide 27.8 mmol/ L 21.0-3 2.0 Not Available [facility] ([facility]) [address], [place], [address], 11/01/2024 15:54:32 11/02/19 25 11/01/2024 COMP METAB OLIC PANEL anion gap 11.8 Not Available [facility] ([facility]) [address], [place], [address], 11/01/2024 15:54:32 11/02/19 25 11/01/2024 COMP METAB OLIC PANEL glucose 112 mg/dL 70-120 Not Available [facility] ([facility]) [address] [facility], [place], [address], 11/01/2024 15:54:32 11/02/19 25 11/01/2024 COMP METAB OLIC PANEL BUN 9 mg/dL 7-18 Not Available [facility] ([facility]) [address] [facility], [place], [address], 11/01/2024 15:54:32 11/02/19 25 11/01/2024 COMP METAB OLIC PANEL creatinine 1.1 mg/dL 0.6-1. 3 Not Available [facility] ([facility]) [address] [facility], [place], [address], 11/01/2024 15:54:32 11/02/19 25 11/01/2024 COMP METAB [...] funct ion. Not Available [facility] ([facility]) [address] [facility], [place], [address], 11/01/2024 15:54:32 11/02/19 25 11/01/2024 COMP METAB OLIC PANEL osmolality (calculated) 289 mOsm/ kg 275-30 1 OSMOL ALITY IS A CALCU LATIO N UTILI ZING THE SERUM /PLAS MA SODIU M, GLUCO SE AND UREA NITRO GEN (BUN) LEVEL S. FOR THE MOST ACCUR ATE RESUL T A MEASU RED SERUM OSMOL ALITY IS SUGGE STED. Not Available [facility] ([facility]) [address], [place], [address], 11/01/2024 15:54:32 11/02/19 25 11/01/2024 COMP METAB OLIC PANEL total protein 6.5 g/dL 6.4-8. 2 Not Available [facility] ([facility]) [address] , [place], [address], 11/01/2024 15:54:32 11/02/19 25 11/01/2024 COMP METAB OLIC PANEL albumin 2.2 g/dL 3.4-5. 0 low Not Available [facility] ([facility]) [address] , [place], [address], 11/01/2024 15:54:32 11/02/19 25 11/01/2024 COMP METAB OLIC PANEL globulin 4.3 Not Available [facility] ([facility]) [address] , [place], [address], 11/01/2024 15:54:32 11/02/19 25 11/01/2024 COMP METAB OLIC PANEL alb/glob ratio 0.5 0.7-2 low Not Available [facility] ([facility]) [address] , [place], [address], 11/01/2024 15:54:32 11/02/19 25 11/01/2024 COMP METAB OLIC PANEL calcium 8.5 mg/dL 8.5-10 .5 Not Available [facility] ([facility]) [address] , [place], [address], 11/01/2024 15:54:32 11/02/19 25 11/01/2024 COMP METAB OLIC PANEL bilirubin total 0.40 mg/dL 0.10-1 .00 Not Available [facility] ([facility]) [address] , [place], [address], 11/01/2024 15:54:32 11/02/19 25 11/01/2024 COMP METAB OLIC PANEL AST (SGOT) 33 U/L 0-37 Not Available [facility] ([facility]) [address] [facility], [place], [address], 11/01/2024 15:54:32 11/02/19 25 11/01/2024 COMP METAB OLIC PANEL ALT (SGPT) 11 U/L 0-65 Not Available [facility] ([facility]) [address] [facility], [place], [address], 11/01/2024 15:54:32 11/02/19 25 11/01/2024 COMP METAB OLIC PANEL alk phosphatase 327 U/L 46-116 high Not Available [facility] ([facility]) [address] [facility], [place], [address], 11/01/2024 15:54:32 11/02/19 25 11/03/2024 CEA cea 86.4 NG/mL 0.0-4. 7 high Nonsm okers <3.9 Smoke rs <5.6 . Lois Diagn ostic s Elect lois milum inesc ence Immun oassa y (ECLI A) . Value s obtai lexi with diffe rent assay metho ds or kits canno t be used inter albrecht eaponca . Resul ts canno t be inter prete d as absol lo[place]ock evide nce of the prese nce or absen ce of [facility] . Perfo rmed at: - [facility] [place] [address] Lab Direc tor: Tate staton PhD, Phone : [phone] Not Available [facility] ([facility]) [address] [facility], [place], [address], 11/03/2024 13:11:48 12/01/19 25 11/30/2024 CBC AUTO W DIFF WBC 9.0 K/uL 4.0-10 .5 Not Available [facility] ([facility]) [address] [facility], [place], [address], 11/30/2024 13:41:32 12/01/19 25 11/30/2024 CBC AUTO W DIFF RBC 3.7 M/mm3 4.2-6. 4 low Not Available [facility] ([facility]) [address], [place], [address], 11/30/2024 13:41:32 12/01/19 25 11/30/2024 CBC AUTO W DIFF HGB 10.2 gm/dL 12.5-1 6.0 low Not Available [facility] ([facility]) [address], [place], [address], 11/30/2024 13:41:32 12/01/19 25 11/30/2024 CBC AUTO W DIFF HCT 32.3 % 37.0-4 7.0 low Not Available [facility] ([facility]) [address], [place], [address], 11/30/2024 13:41:32 12/01/19 25 11/30/2024 CBC AUTO W DIFF MCV 86.8 fL 78-100 Not Available [facility] ([facility]) [address], [place], [address], 11/30/2024 13:41:32 12/01/19 25 11/30/2024 CBC AUTO W DIFF MCH 27.4 pg 27-31 Not Available [facility] ([facility]) [address], [place], [address], 11/30/2024 13:41:32 12/01/19 25 11/30/2024 CBC AUTO W DIFF MCHC 31.6 g/dL 32-36 low Not Available [facility] ([facility]) [address], [place], [address], 11/30/2024 13:41:32 12/01/19 25 11/30/2024 CBC AUTO W DIFF RDW 14.4 % 11.5-1 4.0 high Not Available [facility] ([facility]) [address] , [place], [address], 11/30/2024 13:41:32 12/01/19 25 11/30/2024 CBC AUTO W DIFF platelet count 260 K/uL 150-45 0 Not Available [facility] ([facility]) [address], [place], [address], 11/30/2024 13:41:32 12/01/19 25 11/30/2024 CBC AUTO W DIFF MPV 9.6 fL 6-9.5 high Not Available [facility] ([facility]) [address], [place], [address], 11/30/2024 13:41:32 12/01/19 25 11/30/2024 CBC AUTO W DIFF neutrophil% 72.3 % 43-65 high Not Available [facility] ([facility]) [address] , [place], [address], 11/30/2024 13:41:32 12/01/19 25 11/30/2024 CBC AUTO W DIFF lymphocyte% 14.6 % 20.5-4 5.5 low Not Available [facility] ([facility]) [address] , [place], [address], 11/30/2024 13:41:32 12/01/19 25 11/30/2024 CBC AUTO W DIFF monocyte% 8.1 % 5.5-11 .7 Not Available [facility] ([facility]) [address] [place], [address], 11/30/2024 13:41:32 12/01/19 25 11/30/2024 CBC AUTO W DIFF eosinophil% 3.6 % 0.9-2. 9 high Not Available [facility] ([facility]) [address] [place], [address], 11/30/2024 13:41:32 12/01/19 25 11/30/2024 CBC AUTO W DIFF basophil% 0.7 % 0.2-1. 0 Not Available [facility] ([facility]) [address] [place], [address], 11/30/2024 13:41:32 12/01/19 25 11/30/2024 CBC AUTO W DIFF immature granulocytes % 0.7 % 0.0-0. 8 Not Available [facility] ([facility]) [address] [place], [address], 11/30/2024 13:41:32 12/01/19 25 11/30/2024 CBC AUTO W DIFF nucleated red blood cells % 0.0 % Not Available [facility] ([facility]) [address] [facility], [place], [address], 11/30/2024 13:41:32 12/01/19 25 11/30/2024 CBC AUTO W DIFF neutrophil# 6.5 K/uL 2.2-4. 8 high Not Available [facility] ([facility]) [address] [place], [address], 11/30/2024 13:41:32 12/01/19 25 11/30/2024 CBC AUTO W DIFF lymphocyte# 1.3 cell/ mcL 1.3-2. 9 Not Available [facility] ([facility]) [address] [place], [address], 11/30/2024 13:41:32 12/01/19 25 11/30/2024 CBC AUTO W DIFF monocyte# 0.7 cell/ mcL 0.3-0. 8 Not Available [facility] ([facility]) [address] [place], [address], 11/30/2024 13:41:32 12/01/19 25 11/30/2024 CBC AUTO W DIFF eosinophil# 0.3 cell/ mcL 0-0.2 high Not Available [facility] ([facility]) [address], [place], [address], 11/30/2024 13:41:32 12/01/19 25 11/30/2024 CBC AUTO W DIFF basophil# 0.1 cell/ mcL 0.0-1. 0 Not Available [facility] ([facility]) [address], [place], [address], 11/30/2024 13:41:32 12/01/19 25 11/30/2024 CBC AUTO W DIFF immature gramulocytes # 0.06 K/uL Not Available [facility] ([facility]) [address], [place], [address], 11/30/2024 13:41:32 12/01/19 25 11/30/2024 CBC AUTO W DIFF nucleated red blood cells # 0.00 K/uL Not Available [facility] ([facility]) [address], [place], [address], 11/30/2024 13:41:32 12/01/19 25 11/30/2024 CBC AUTO W DIFF manual differential NO Not Available [facility] ([facility]) [address], [place], [address], 11/30/2024 13:41:32 12/01/19 25 11/30/2024 COMP METAB OLIC PANEL sodium 129 mmol/ L 136-14 5 low Not Available [facility] ([facility]) [address], [place], [address], 11/30/2024 13:45:48 12/01/19 25 11/30/2024 COMP METAB OLIC PANEL potassium 4.8 mmol/ L 3.6-5. 0 Not Available [facility] ([facility]) [address], [place], [address], 11/30/2024 13:45:48 12/01/19 25 11/30/2024 COMP METAB OLIC PANEL chloride 93 mmol/ L 98-107 low Not Available [facility] ([facility]) [address] , [place], [address], 11/30/2024 13:45:48 12/01/19 25 11/30/2024 COMP METAB OLIC PANEL carbon dioxide 25.2 mmol/ L 21.0-3 2.0 Not Available [facility] ([facility]) [address] , [place], [address], 11/30/2024 13:45:48 12/01/19 25 11/30/2024 COMP METAB OLIC PANEL anion gap 15.6 Not Available [facility] ([facility]) [address] , [place], [address], 11/30/2024 13:45:48 12/01/19 25 11/30/2024 COMP METAB OLIC PANEL glucose 110 mg/dL 70-120 Not Available [facility] ([facility]) [address] , [place], [address], 11/30/2024 13:45:48 12/01/19 25 11/30/2024 COMP METAB OLIC PANEL BUN 38 mg/dL 7-18 high Not Available [facility] ([facility]) [address] , [place], [address], 11/30/2024 13:45:48 12/01/19 25 11/30/2024 COMP METAB OLIC PANEL creatinine 2.6 mg/dL 0.6-1. 3 high Not Available [facility] ([facility]) [address] , [place], [address], 11/30/2024 13:45:48 12/01/19 25 11/30/2024 COMP METAB [...] funct ion. Not Available [facility] ([facility]) [address] , [place], [address], 11/30/2024 13:45:48 12/01/19 25 11/30/2024 COMP METAB OLIC PANEL osmolality (calculated) 279 mOsm/ kg 275-30 1 OSMOL ALITY IS A CALCU LATIO N UTILI ZING THE SERUM /PLAS MA SODIU M, GLUCO SE AND UREA NITRO GEN (BUN) LEVEL S. FOR THE MOST ACCUR ATE RESUL T A MEASU RED SERUM OSMOL ALITY IS SUGTASHA QUEVEDOD. Not Available [facility] ([facility]) [address] , [place], [address], 11/30/2024 13:45:48 12/01/19 25 11/30/2024 COMP METAB OLIC PANEL total protein 8.4 g/dL 6.4-8. 2 high Not Available [facility] ([facility]) [address] [facility], [place], [address], 11/30/2024 13:45:48 12/01/19 25 11/30/2024 COMP METAB OLIC PANEL albumin 2.6 g/dL 3.4-5. 0 low Not Available [facility] ([facility]) [address] [facility], [place], [address], 11/30/2024 13:45:48 12/01/19 25 11/30/2024 COMP METAB OLIC PANEL globulin 5.8 Not Available [facility] ([facility] [address] , [place], [place], [address], 11/30/2024 13:45:48 12/01/19 25 11/30/2024 COMP METAB OLIC PANEL alb/glob ratio 0.4 0.7-2 low Not Available [facility] ([facility]) [address], [place], [address], 11/30/2024 13:45:48 12/01/19 25 11/30/2024 COMP METAB OLIC PANEL calcium 9.5 mg/dL 8.5-10 .5 Not Available [facility] ([facility]) [address], [place], [address], 11/30/2024 13:45:48 12/01/19 25 11/30/2024 COMP METAB OLIC PANEL bilirubin total 0.80 mg/dL 0.10-1 .00 Not Available [facility] ([facility]) [address], [place], [address], 11/30/2024 13:45:48 12/01/19 25 11/30/2024 COMP METAB OLIC PANEL AST (SGOT) 111 U/L 0-37 high Not Available [facility] ([facility]) [address], [place], [address], 11/30/2024 13:45:48 12/01/19 25 11/30/2024 COMP METAB OLIC PANEL ALT (SGPT) 20 U/L 0-65 Not Available [facility] ([facility]) [address] [facility] [facility], [place], [address], 11/30/2024 13:45:48 12/01/19 25 11/30/2024 COMP METAB OLIC PANEL alk phosphatase 490 U/L 46-116 high Not Available [facility] ([facility]) [address], [place], [address], 11/30/2024 13:45:48 12/01/19 25 12/01/2024 CEA cea [...] t be inter prete d as absol [place] evide nce of the prese nce or absen ce of dennis lozada disea se. Perfo rmed at: - [facility] [address] [facility] [address] [facility], [facility], [place] [address] Lab Direc tor: Tate staton PhD, Phone : [phone] Not Available [facility] ([facility]) [address] [facility], [place], [address], 12/01/2024 11:12:48 07/28/19 25 07/28/2024 CT ABD pel w/ (IV [facility] [address] [place] [address] Phone: Fax: Name: VICKY MCMAHAN Exam Date: : 948 Age 78 years Gender : F Access ion: [id number] 2023 Physic jesus: HANNA PARKER Facili ty: [facility] Facili ty HSV: Outpat ient Exam: CT ABD PEL W/ (IV ^ ORAL) CT ABDOME N PELVIS WITH IV CONTRA ST 025 2:46 PM [facility]OR [facility] AL INDICA TION: Female , 78 [...] r findin gs compar e Februa ry 26, 2024, index certified family mediator ior segmen t right lobe segmen t [...] renal lesion s, too small to charac terize , simila r compar ed to prior study. * Status post right colect haley, no findin gs of small bowel obstru ction. 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 * Status post hyster ectomy . * No pathol ogic retrop eriton eal or mesent megah adenop athy. * Degene rative diseas e [...] ation: [id number] Dictat ed By: Rey Casatneda Transc ribed By: Transc ribed On: 025 3:46 PM Electr onical ly signed by: Rey Castaneda 025 Thank you for referr ing VICKY MCMAHAN to [facility] Hospit [facility]. Legall y authen ticate d by VAMSHI HALL 07-28 15:46: 13 CC'ed Logic: Orderi ng Provid er: DIGNA LUGO Attend ing Provid er: DIGNA LUGO Referr ing Provid er: DIGNA LUGO Admitt ing Provid er: DIGNA taylor[address] [place] [address] - Physical Therapy [address] [facility], [place], [address], 07/29/2024 11:36:27 08/02/19 25 07/28/2024 CT, chest , w/ contr ast [facility] [address] [place] [address] Phone: Fax: Name: VICKY MCMAHAN Exam Date: 025 : 948 Age 78 years Gender : F Access ion: [id number] 2023 Physic jesus: HANNA PARKER Facili ty: [facility] Facili ty HSV: Outpat [...] Thank you for referr VICKY Delgado to [facility] al. Legall y authen ticate d by AVIS ALBA IN 07-28 15:46: 34 CC'ed Logic: Orderi ng Provid er: DIGNA LUGO Attend ing Provid er: DIGNA LUGO Referr ing Provid er: DIGNA LUGO Admitt ing Provid er: DIGNA LUGO [address] - Physical Therapy [address], [place], [address], 08/01/2024 10:49:34 Result Notes None recorded. Problems Name Problem SNOMED Code Status Onset Date Resolution Date Notes Provider Name and Address Organization Details Recorded Time Metastatic malignant neoplasm to liver 46256575 Active 2022 Ghassan Lieberman PA-C [address], [place], [address] , [place] - [facility] & [place] 3 14:27:25 Mass of colon 968695613 Active 2022 Ghassan Lieberman PA-C [address], [place], [address] , [place] [facility] & [place] 3 14:27:30 Anemia 780344737 Active 2022 Ghassan Lieberman PA-C [address], [place], [address] , [place] - [facility] & [place] 3 14:27:36 Nausea and vomiting 15812203 Active 2022 Ghassan Lieberman PA-C [address], [place], [address] , [facility] & [place] 3 14:27:46 Unintentional weight loss 109294681 Active 2022 Ghassan Lieberman PA-C [address], [place], [address] , [place] - [facility] & [place] 3 16:13:07 Night sweats 96514428 Active 2022 Ghassan Lieberman PA-C [address] , [place], [address] , [facility] & [place] 3 16:13:12 Headache 28217975 Active 2024 [facility] & [place] 5 10:27:12 Problem Notes Documentation Provider Name and Address Organization Details Recorded Time Oncology Patient Navigator : SHABBIR met with pt in infusion who states [...] out may any needs/concerns arise. [facility] & [place] 08/25/2024 14:45:18 Oncology Patient Navigator [...] how she was doing after discharge from [facility]. Pt states she is doing [...] very appreciative of all the staff of [facility]. ONN encouraged pt to reach out may any needs/concerns arise. CURT Muller & Yolanda 09/14/2024 15:13:43 Oncology Patient Navigator : ONN met with pt at [facility] with medical oncology. Pt states she is doing well at this time. Hospice consult was briefly discussed and pt declined at this time. ONN encouraged pt to reach out may any needs/concerns arise. CURT Muller & Yolanda 11/01/2024 13:52:48 Oncology Patient Navigator : ONN met with pt accompanied by daughter at apt with medical oncology. Pt is slurring her speech, seems forgetful, and nodding off during conversations. Pt daughter is a little concerned about pt but states overall she is doing well but has declined since last week. Pt denies any questions/concerns at this time. ONN encouraged pt to reach out may any needs/cooncerns arise. Christine yusuf, [facility] & [place] 11/30/2024 15:38:04 Procedures Surgical History Date Name Laterality Status Provider Name and Address Organization Details Recorded Time 04/29/20 23 Venipuncture completed Hanna Snider PA-C [address] [facility], [place], [address], [facility] & [place] 04/27/2023 15:05:29 04/15/20 23 Venipuncture completed Stephanie Maravilla [facility] & [place] 04/15/2023 15:24:55 hysterectomy completed Laurel Samuels [facility] & [place] 03/11/2023 15:30:22 [facility] [place] 03/11/2023 15:30:36 excision of colon completed Loree Tadeo [facility] & [place] 04/21/2023 11:32:07 Imaging Results None recorded. Procedure Notes None recorded. Medical Equipment None Reported. Allergies Allergen ID Allergen Name Allergen Category Reaction Reaction Severity Criticality Documentation Date Start Date Code Code System Note Provider Name and Address Organization Details Recorded Time 49901 tetracycl ine medicatio n hives Not available high 02/19/2023 34399 RxNorm Brandysa Raheem yusuf, [facility] & [place] 14:03:33 Medications Name Sig Start [...] Updated DateTime 5 162.56 cm 35.2 kg/m2 62247.4 4 g 97.5 [degF] 98 % 98 % 20 /min 83 /min 140/68 mm[Hg] Laurel ELIAS - NT [facility] & [place] 5 09:42:28 Date Recorded Body height Body temperature Oxygen saturation Oxygen saturation in Arterial blood by Pulse oximetry Heart rate Respiratory rate Systolic And Diastolic Provider Name and Address Organization Details Last Updated DateTime 5 162.56 cm 97.2 [degF] 95 % 95 % 141 /min 20 /min 137/86 mm[Hg] Laurel ELIAS [facility] & [place] 5 12:09:03 Date Recorded Body height Body mass index (BMI) Body weight Body temperature Oxygen saturation Oxygen saturation in Arterial blood by Pulse oximetry Heart rate Systolic And Diastolic Provider Name and Address Organization Details Last Updated DateTime 5 162.56 cm 33.5 kg/m2 57193.5 1 g 97.6 [degF] 98 % 98 % 75 /min 185/79 mm[Hg] Laurel ELIAS [facility] & [place] 5 13:16:39 Date Recorded Body height Body mass index (BMI) Body weight Body temperature Oxygen saturation Oxygen saturation in Arterial blood by Pulse oximetry Heart rate Systolic And Diastolic Provider Name and Address Organization Details Last Updated DateTime 5 162.56 cm 33.8 kg/m2 34780.7 g 96.8 [degF] 99 % 99 % 65 /min 93/62 mm[Hg] Stephanie Taiwo CURT [facility] & [place] 5 11:12:52 Date Recorded Body height Body temperature Oxygen saturation Oxygen saturation in Arterial blood by Pulse oximetry Heart rate Respiratory rate Systolic And Diastolic Provider Name and Address Organization Details Last Updated DateTime 5 162.56 cm 98.5 [degF] 88 % 88 % 53 /min 18 /min 96/51 mm[Hg] Laurel ELIAS [facility] & [place] 5 11:20:39 Social History Question Answer Notes LastModified by Organizat ion Details LastModified Time Tobacco Smoking Status Never Smoker Brandy Maciel paramjit CURT [facility] & [place] 02/19/2023 14:02:59 What Is Your Level Of Caffeine Consumption? None [email or web address] Information not available 02/19/2023 What Was The Date Of Your Most Recent Tobacco Screening? 11/23/2023 [email or web address] Information not available 11/23/2023 Has Tobacco Cessation Counseling Been Provided? No [email or web address] Information not available 07/13/2023 Sex: Unknown Functional Status Question Answer Note LastModified by Organizat ion Details LastModified Time Do you use any illicit or recreational drugs? No [email or web address] Information not available 02/19/2023 Do you or have you ever used any other forms of tobacco or nicotine? No [email or web address] Information not available 02/19/2023 What is your level of alcohol consumption? None [email or web address] Information not available 02/19/2023 Mental Status None recorded. Family History Nothing Reported. Medical History No medical history recorded. Gynecological HistoryNo gynecological history recorded. Obstetrics History GPAL:G 0 P 0 0 0 0 Immunizations Vaccine Type Date Status Note Provider Nam e and Address Organization Details Recorded Time pneumococcal polysaccharide PPV23 7 completed Stephanie Maravilla [facility] & [place] 12/21/2023 09:56:34 Past Encounters Encounter ID Performer Location Encounter Start Date Encounter Closed Date Diagnosis/Indication Diagnosis SNOMED-CT Code Diagnosis ICD10 Code Diagnosis Note [id number] Ghassan Lieberman PA-C [facility] [address] [facility] [address] [place] [address] 02/19/2023 13:50:39 02/19/2023 14:35:58 Metastatic malignant neoplasm to liver 92092414 C78.7 Mass of colon 814403628 R19.09 Anemia 764657012 D64.9 Nausea and vomiting 1693 1999 R11.2 Unintentio nal weight loss 428297109 R63.4 Night sweats 95004171 R6 1 [id number] Addy Gonzales MD [facility] General Surgery [address] [facility] [place] [address] 03/10/2023 13:05:53 03/10/2023 14:02:07 Mass of colon 001737410 R19.09 Ascending colon. Patient has had ongoing [...] and possibilit y of ostomy. Liver mass 972391438 R16 .0 [id number] Tomy King MD [facility] [address] [place] [address] 03/11/2023 14:55:42 03/11/2023 16:34:54 Malignant tumor of ascending colon 372208075 C18.2 CT scan of the abdomen and [...] tissue sampling. Metastatic malignant neoplasm to liver 50484545 C78.7 CT scan of the abdomen and [...] colon cancer. Will follow-up tissue biopsy. Nausea 767753752 R11.0 As needed Zofran and Phenergan prescribed . Pain due t o neoplastic disease 7183173891 9102 G89.3 Right upper quadrant pain secondary to liver metastasis . Patient currently taking Tylenol. Discussed as needed oxycodone to limit Tylenol exposure. Anemia 281298542 D64.9 Right-side d colon mass concerning for malignancy . Will assess for any signs of iron deficiency . Most recent hemoglobin at 8.0. Concern for blood loss from colon mass. Patient reports dark stools. Adopted 741190621 Z62.89 8 Patient is adopted and discussed hereditary gene panel. Patient does have family history of her son having bladder cancer. [id number] Tomy King MD [facility] [address] [place] [address] 04/15/2023 14:08:30 04/15/2023 15:42:28 Malignant tumor of ascending colon 703364538 C18.2 CT scan of the abdomen and [...] 8.2 hematocrit 29.0. MCV 67.9. Platelet count 518016. Normal cell differenti al. Low serum folate [...] metastatic colorectal cancer. Discussed chemothera py with [place] based regimen with 5FU Leucovorin if KRAS wild type would also add Vectibix to therapy. Will follow-up. Patient returns on April 15, 2023. Will start chemothera py as soon as possible. Metastatic malignant neoplasm to liver 36599981 C78.7 CT scan of the abdomen and [...] Findings concerning for metastatic colon cancer. Nausea 245035679 R11.0 As needed Zofran and Phenergan prescribed . Pain due t o neoplastic disease 7490251474 9102 G89.3 Right upper quadrant pain secondary to liver metastasis . Patient currently taking Tylenol. Discussed as needed oxycodone to limit Tylenol exposure. Anemia 169517086 D64.9 Right-side d colon mass concerning for malignancy . Will assess for any signs of iron deficiency . Most recent hemoglobin at 8.0. Concern for blood loss from colon mass. Patient reports dark stools. Adopted 105327113 Z62.89 8 Patient is adopted and discussed hereditary gene panel. Patient does have family history of her son having bladder cancer. Will send [facility] hereditary panel. [id number] Addy Gonzales MD [facility] General Surgery [address] [facility] [place] [address] 04/21/2023 11:07:18 04/21/2023 11:47:40 Malignant tumor of ascending colon 842673473 C18.2 Patient has follow-up with Oncology, is debating if she wishes any further treatment at this point. I have recommende d continuing lifting restrictio ns for another 2 weeks, then can resume activity as tolerated. Patient can follow-up with me if she has ongoing issues or questions. [id number] Hanna Snider PA-C [facility] [address] [place] [address] 04/29/2023 10:08:09 04/29/2023 10:08:41 Malignant tumor of ascending colon 673904867 C18.2 CT scan of the abdomen and [...] 8.2 hematocrit 29.0. MCV 67.9. Platelet count 906452. Normal cell differenti al. Low serum folate [...] metastatic colorectal cancer. Discussed chemothera py with [place] based regimen with 5FU Leucovorin if [...] on for Megace. Will follow-up for angela t. Metastatic malignant neoplasm to liver 62254343 C78.7 CT scan of the abdomen and [...] Findings concerning for metastatic colon cancer. Nausea 880063517 R11.0 As needed Zofran and Phenergan prescribed . Pain due t o neoplastic disease 9703737980 9102 G89.3 Right upper quadrant pain secondary to liver metastasis . Patient currently taking Tylenol. Discussed as needed oxycodone to limit Tylenol exposure. Anemia 671024901 D64.9 Right-side d colon mass concerning for malignancy . Will assess for any signs of iron deficiency . Most recent hemoglobin at 8.0. Concern for blood loss from colon mass. Patient reports dark stools. Adopted 680659003 Z62.89 8 Patient is adopted and discussed hereditary gene panel. Patient does have family history of her son having bladder cancer. [facility] send [facility] hereditary panel. Antineopla stic chemotherapy regimen 473216845 Z51.11 Cycle 1 5FU Leucovorin Vectibix on April 29, 2023. Hypomagnesemia 621781247 E83.42 Patient returns on April 29, 2023. Magnesium level is 1.7 today. Will give 1 g magnesium IV. Hypokalemia 60412974 E87 .6 Patient returns on April 29, 2023. Potassium is low at 2.9. Will send prescripti on for potassium 20 mEq daily. Will follow-up labs again next week. Loss of appetite 2708039 6 R63.0 Patient has had nausea and decreased appetite since her cancer diagnosis. She can not tolerate her nutritiona l drinks. She does take Phenergan with relief. She continues to lose weight. Will send prescripti on for Megace. [id number] Hanna Snider PA-C [facility] [address] [place] [address] 05/04/2023 09:35:22 05/04/2023 09:45:11 Malignant tumor of ascending colon 040236686 C18.2 CT scan of the abdomen and [...] 8.2 hematocrit 29.0. MCV 67.9. Platelet count 045891. Normal cell differenti al. Low serum folate [...] metastatic colorectal cancer. Discussed chemothera py with [place] based regimen with 5FU Leucovorin if [...] has started on Megace. Will follow-up for improvemen t. Metastatic malignant neoplasm to liver 30126781 C78.7 CT scan of the abdomen and [...] Findings concerning for metastatic colon cancer. Nausea 149734386 R11.0 As needed Zofran and Phenergan prescribed . Pain due t o neoplastic disease 2066865424 9102 G89.3 Right upper quadrant pain secondary to liver metastasis . Patient currently taking Tylenol. Discussed as needed oxycodone to limit Tylenol exposure. Anemia 514226468 D64.9 Right-side d colon mass concerning for malignancy . Will assess for any signs of iron deficiency . Most recent hemoglobin at 8.0. Concern for blood loss from colon mass. Patient reports dark stools. Adopted 563332715 Z62.89 8 Patient is adopted and discussed hereditary gene panel. Patient does have family history of her son having bladder cancer. Will send [facility] hereditary panel. Antineopla stic chemotherapy regimen 869935138 Z51.11 Cycle 1 5FU Leucovorin Vectibix on April 29, 2023. Cycle 2 5FU Leucovorin Vectibix on May 04, 2023. Hypomagnesemia 517411948 E83.42 Patient returns on April 29, 2023. Magnesium level is 1.7 today. Will give 1 g magnesium IV. Hypokalemia 94698348 E87 .6 Patient returns on April 29, 2023. Potassium is low at 2.9. Will send prescripti on for potassium 20 mEq daily. Will follow-up labs again next week. Loss of appetite 5137603 6 R63.0 Patient has had nausea and decreased appetite since her cancer diagnosis. She can not tolerate her nutritiona l drinks. She does take Phenergan with relief. She continues to lose weight. Will send prescripti on for Abraham. [id number] Hanna Snider PA-C [facility] [address] [place] [address] 05/11/2023 09:04:44 05/11/2023 13:02:16 Malignant tumor of ascending colon 934650515 C18.2 CT scan of the abdomen and [...] 8.2 hematocrit 29.0. MCV 67.9. Platelet count 066944. Normal cell differenti al. Low serum folate [...] metastatic colorectal cancer. Discussed chemothera py with [place] based regimen with 5FU Leucovorin if [...] angela portillo. Metastatic malignant neoplasm to liver 54701154 C78.7 CT scan of the abdomen and [...] Findings concerning for metastatic colon cancer. Nausea 814078728 R11.0 As needed Zofran and Phenergan prescribed . Pain due t o neoplastic disease 6826803051 9102 G89.3 Right upper quadrant pain secondary to liver metastasis . Patient currently taking Tylenol. Discussed as needed oxycodone to limit Tylenol exposure. Anemia 340653371 D64.9 Right-side d colon mass concerning for malignancy . Will assess for any signs of iron deficiency . Most recent hemoglobin at 8.0. Concern for blood loss from colon mass. Patient reports dark stools. Adopted 291096438 Z62.89 8 Patient is adopted and discussed hereditary gene panel. Patient does have family history of her son having bladder cancer. Will send [facility] hereditary panel. Antineopla stic chemotherapy regimen 156480764 Z51.11 Cycle 1 5FU Leucovorin Vectibix on April 29, 2023. Cycle 2 5FU Leucovorin Vectibix on May 04, 2023. Cycle 3 5FU Leucovorin Vectibix on May 11, 2023. Hypomagnesemia 023286177 E83.42 Patient returns on April 29, 2023. Magnesium level is 1.7 today. Will give 1 g magnesium IV. Hypokalemia 62426831 E87 .6 Patient returns on April 29, 2023. Potassium is low at 2.9. Will send prescripti on for potassium 20 mEq daily. Will follow-up labs again next week. Loss of appetite 1900137 6 R63.0 Patient has had nausea and decreased appetite since her cancer diagnosis. She can not tolerate her nutritiona l drinks. She does take Phenergan with relief. She continues to lose weight. Will send prescripti on for Megace. Acute conjunctivitis 537 19536 H10.32 Patient returns on May 11, 2023. She has had erythema, conjuntiva inflammati on, discharged and matted left eye. She has been using warm compresses . Will send prescripti on for eye drops for conjunctiv itis. Diarrhea 24331707 R19.7 She has had diarrhea since night. She has tried Imodium and Pepto. Discussed taking Lomotil instead. [id number] Addy Gonzales MD [facility] General Surgery [address] [facility] [place] [address] 05/07/2023 13:50:57 05/07/2023 15:14:30 Malignant tumor of ascending colon 360469836 C18.2 I have scheduled the patient for venous port placement. informed consent was obtained. Risks of the procedure including bleeding, infection, catheter complicati ons and damage to surroundin g structures were discussed [id number] Hanna Snider PA-C [facility] [address] [place] [address] 06/02/2023 09:27:10 06/02/2023 10:20:16 Malignant tumor of ascending colon 871504272 C18.2 CT scan of the abdomen and [...] 8.2 hematocrit 29.0. MCV 67.9. Platelet count 275050. Normal cell differenti al. Low serum folate [...] metastatic colorectal cancer. Discussed chemothera py with [place] based regimen with 5FU Leucovorin if [...] labs today. Metastatic malignant neoplasm to liver 54622708 C78.7 CT scan of the abdomen and [...] Findings concerning for metastatic colon cancer. Nausea 019111896 R11.0 As needed Zofran and Phenergan prescribed . Pain due t o neoplastic disease 0099049402 9102 G89.3 Right upper quadrant pain secondary to liver metastasis . Patient currently taking Tylenol. Discussed as needed oxycodone to limit Tylenol exposure. Anemia 677727367 D64.9 Right-side d colon mass concerning for malignancy . Will assess for any signs of iron deficiency . Most recent hemoglobin at 8.0. Concern for blood loss from colon mass. Patient reports dark stools. Adopted 489721015 Z62.89 8 Patient is adopted and discussed hereditary gene panel. Patient does have family history of her son having bladder cancer. Will send [facility] hereditary panel. Antineopla stic chemotherapy regimen 792601371 Z51.11 Cycle 1 5FU Leucovorin Vectibix on April 29, 2023. Cycle 2 5FU Leucovorin Vectibix on May 04, 2023. Cycle 3 5FU Leucovorin Vectibix on May 11, 2023. Hypomagnesemia 766211653 E83.42 Patient returns on April 29, 2023. Magnesium level is 1.7 today. Will give 1 g magnesium IV. Hypokalemia 24026984 E87 .6 Patient returns on April 29, 2023. Potassium is low at 2.9. Will send prescripti on for potassium 20 mEq daily. Will follow-up labs again next week. Loss of appetite 7784725 6 R63.0 Patient has had nausea and decreased appetite since her cancer diagnosis. She can not tolerate her nutritiona l drinks. She does take Phenergan with relief. She continues to lose weight. Will send prescripti on for Megace. Acute conjunctivitis 537 26189 H10.32 Patient returns on May 11, 2023. She has had erythema, conjuntiva inflammati on, discharged and matted left eye. She has been using warm compresses . Will send prescripti on for eye drops for conjunctiv itis. Diarrhea 46330152 R19.7 Diarrhea has resolved. Patient with recent C diff Deep venou s thrombosis [id number] I82.409 Patient developed right lower extremity pain and edema. Venous duplex on May 28, 2023 with evidence of deep vein thrombosis . Started on Eliquis 5 mg 1 tab p.o. b.i.d.. Did not start with Eliquis starter pack due to recent bleeding. Patient had a DVT and a PE in 1990 after her hysterecto my. Will order hypercoagu lable panel today. Anxiety 62786424 F41.9 Patient has had increased anxiety. She is tearful and crying during her visit today due to all of her health problems. She does not want to take an antidepres melina at this time. Discussed low-dose Ativan. Muscle weakness 75078610 M62.81 Patient is feeling weak and is requesting a lift chair. Will see if insurance will cover. Discussed home health but patient declines at this time. [id number] Tomy King MD [facility] [address] [place] [address] 06/08/2023 09:23:07 06/08/2023 11:39:14 Malignant tumor of ascending colon 379991684 C18.2 CT scan of the abdomen and [...] 8.2 hematocrit 29.0. MCV 67.9. Platelet count 930134. Normal cell differenti al. Low serum folate [...] labs today. Metastatic malignant neoplasm to liver 63087427 C78.7 CT scan of the abdomen and [...] Findings concerning for metastatic colon cancer. Nausea 942076615 R11.0 As needed Zofran and Phenergan prescribed . Pain due t o neoplastic disease [id number] 9102 G89.3 Right upper quadrant pain secondary to liver metastasis . Patient currently taking Tylenol. Discussed as needed oxycodone to limit Tylenol exposure. Anemia 340660991 D64.9 Right-side d colon mass concerning for malignancy . Will assess for any signs of iron deficiency . Most recent hemoglobin at 8.0. Concern for blood loss from colon mass. Patient reports dark stools. Adopted 152709563 Z62.89 8 Patient is adopted and discussed hereditary gene panel. Patient does have family history of her son having bladder cancer. Will send [facility] hereditary panel. Antineopla stic chemotherapy regimen 088956330 Z51.11 Week 1 5FU Leucovorin Vectibix on [...] return for cycle 2 day 1 Hypomagnesemia 554607093 E83.42 Patient returns on April 29, 2023. Magnesium level is 1.7 today. Will give 1 g magnesium IV. Hypokalemia 46570658 E87 .6 Patient returns on April 29, 2023. Potassium is low at 2.9. Will send prescripti on for potassium 20 mEq daily. Will follow-up labs again next week. Loss of appetite 7515017 6 R63.0 Patient has had nausea and decreased appetite since her cancer diagnosis. She can not tolerate her nutritiona l drinks. She does take Phenergan with relief. She continues to lose weight. Will send prescripti on for Megace. Acute conjunctivitis 122 65866 H10.32 Patient returns on May 11, 2023. She has had erythema, conjuntiva inflammati on, discharged and matted left eye. She has been using warm compresses . Will send prescripti on for eye drops for conjunctiv itis.Will send in repeat prescripti on for eye drops. Diarrhea 79498891 R19.7 Diarrhea has resolved. Patient with recent C diff Deep venou s thrombosis 478290437 I82.409 Patient developed right lower extremity pain and edema.Veno us duplex on May 28, 2023 with evidence of deep vein thrombosis . Started on Eliquis 5 mg 1 tab p.o. b.i.d.. Did not start with Eliquis starter pack due to recent bleeding. Patient had a DVT and a PE in 1990 after her hysterecto my. Anxiety 84286560 F41.9 Patient has had increased anxiety. She is tearful and crying during her visit today due to all of her health problems. She does not want to take an antidepres melina at this time. Discussed low-dose Ativan. Improvemen t in mood overall on visit from June 08, 2023. [id number] Addy Gonzales MD [facility] General Surgery [address] [facility] [place] [address] 06/05/2023 10:23:30 06/05/2023 11:32:28 Malignant tumor of ascending colon 424193265 C18.2 Needs port placed, cannot do this [...] can save her the long drive in. [id number] Tomy King MD [facility] [address] [place] [address] 06/22/2023 10:06:43 06/22/2023 12:44:59 Malignant tumor of ascending colon 092566591 C18.2 CT scan of the abdomen and [...] 8.2 hematocrit 29.0. MCV 67.9. Platelet count 366724. Normal cell differenti al. Low serum folate [...] next month. Metastatic malignant neoplasm to liver 38814001 C78.7 CT scan of the abdomen and [...] Findings concerning for metastatic colon cancer. Nausea 084399155 R11.0 As needed Zofran and Phenergan prescribed . Pain due t o neoplastic disease 9642690067 9102 G89.3 Right upper quadrant pain secondary to liver metastasis . Patient currently taking Tylenol. Discussed as needed oxycodone to limit Tylenol exposure. Anemia 103630906 D64.9 Right-side d colon mass concerning for malignancy . Will assess for any signs of iron deficiency . Most recent hemoglobin at 8.0. Concern for blood loss from colon mass. Patient reports dark stools. Adopted 131798886 Z62.89 8 Patient is adopted and discussed hereditary gene panel. Patient does have family history of her son having bladder cancer. Will send [facility] hereditary panel. Antineopla stic chemotherapy regimen 386846076 Z51.11 Week 1 5FU Leucovorin Vectibix on [...] and Vectibix on July 06, 2023. Hypokalemia 02553782 E87 .6 Patient returns on April 29, 2023. Potassium is low at 2.9. Will send prescripti on for potassium 20 mEq daily. Will follow-up labs again next week. Loss of appetite 2308745 6 R63.0 Patient has had nausea and decreased appetite since her cancer diagnosis. She can not tolerate her nutritiona l drinks. She does take Phenergan with relief. She continues to lose weight. Will send prescripti on for Megace. Acute conjunctivitis 532 22589 H10.32 Patient returns on May 11, 2023. She has had erythema, conjuntiva inflammati on, discharged and matted left eye. She has been using warm compresses . Will send prescripti on for eye drops for conjunctiv itis.Will send in repeat prescripti on for eye drops. Diarrhea 40856354 R19.7 Diarrhea has resolved. Patient with recent C diff Deep venou s thrombosis 533245150 I82.409 Patient developed right lower extremity pain and edema.Veno us duplex on May 28, 2023 with evidence of deep vein thrombosis . Started on Eliquis 5 mg 1 tab p.o. b.i.d.. Did not start with Eliquis starter pack due to recent bleeding. Patient had a DVT and a PE in 1990 after her hysterecto my. Anxiety 92945304 F41.9 Patient has had increased anxiety. She is tearful and crying during her visit today due to all of her health problems. She does not want to take an antidepres melina at this time. Discussed low-dose Ativan. Improvemen t in mood overall on visit from June 08, 2023. [id number] Tomy King MD [facility] [address] [place] [address] 07/13/2023 09:25:11 07/13/2023 10:53:59 Malignant tumor of ascending colon 691126232 C18.2 CT scan of the abdomen and [...] 8.2 hematocrit 29.0. MCV 67.9. Platelet count 872653. Normal cell differenti al. Low serum folate [...] for now. Metastatic malignant neoplasm to liver 44533754 C78.7 CT scan of the abdomen and [...] Findings concerning for metastatic colon cancer. Nausea 014548575 R11.0 As needed Zofran and Phenergan prescribed . Pain due t o neoplastic disease 6531318624 9102 G89.3 Right upper quadrant pain secondary to liver metastasis . Patient currently taking Tylenol. Discussed as needed oxycodone to limit Tylenol exposure. Anemia 499193828 D64.9 Right-side d colon mass concerning for malignancy . Will assess for any signs of iron deficiency . Most recent hemoglobin at 8.0. Concern for blood loss from colon mass. Patient reports dark stools. Adopted 096911280 Z62.89 8 Patient is adopted and discussed hereditary gene panel. Patient does have family history of her son having bladder cancer. Will send [facility] hereditary panel. Antineopla stic chemotherapy regimen 868126299 Z51.11 Week 1 5FU Leucovorin Vectibix on April 29, 2023.Week 2 5FU Leucovorin Vectibix on May 04, 2023.Week 3 5FU Leucovorin Vectibix on May 11, 2023.Week 4 5FU Leucovorin and Vectibix on June 08, 2023.Day 29 of 5FU Leucovorin and Vectibix on June 22, 2023. Cycle 2 day 1 of 5FU Leucovorin and Vectibix on July 13, 2023. Hypokalemia 11837562 E87 .6 Patient returns on April 29, 2023. Potassium is low at 2.9. Will send prescripti on for potassium 20 mEq daily. Will follow-up labs again next week. Loss of appetite 7205869 6 R63.0 Patient has had nausea and decreased appetite since her cancer diagnosis. She can not tolerate her nutritiona l drinks. She does take Phenergan with relief. She continues to lose weight. Will send prescripti on for Megace. Acute conjunctivitis 539 56783 H10.32 Patient returns on May 11, 2023. She has had erythema, conjuntiva inflammati on, discharged and matted left eye. She has been using warm compresses . Will send prescripti on for eye drops for conjunctiv itis.Will send in repeat prescripti on for eye drops. Diarrhea 01918661 R19.7 Diarrhea has resolved. Patient with recent C diff Deep venou s thrombosis 241778327 I82.411 Patient developed right lower extremity pain and edema.Veno us duplex on May 28, 2023 with evidence of deep vein thrombosis . Started on Eliquis 5 mg 1 tab p.o. b.i.d.. Did not start with Eliquis starter pack due to recent bleeding. Patient had a DVT and a PE in 1990 after her hysterecto my. Anxiety 20395422 F41.9 Patient has had increased anxiety. She is tearful and crying during her visit today due to all of her health problems. She does not want to take an antidepres melina at this time. Discussed low-dose Ativan. Improvemen t in mood overall on visit from June 08, 2023. [id number] Hanna Snider PA-C [facility] [address] [place] [address] 07/27/2023 09:02:25 07/27/2023 10:25:44 Malignant tumor of ascending colon 403165132 C18.2 CT scan of the abdomen and [...] 8.2 hematocrit 29.0. MCV 67.9. Platelet count 550863. Normal cell differenti al. Low serum folate [...] Will follow-up Metastatic malignant neoplasm to liver 06713723 C78.7 CT scan of the abdomen and [...] Findings concerning for metastatic colon cancer. Nausea 764921084 R11.0 As needed Zofran and Phenergan prescribed . Pain due t o neoplastic disease 3161904642 9102 G89.3 Right upper quadrant pain secondary to liver metastasis . Patient currently taking Tylenol. Discussed as needed oxycodone to limit Tylenol exposure. Anemia 805490397 D64.9 Right-side d colon mass concerning for malignancy . Will assess for any signs of iron deficiency . Most recent hemoglobin at 8.0. Concern for blood loss from colon mass. Patient reports dark stools. Adopted 358436006 Z62.89 8 Patient is adopted and discussed hereditary gene panel. Patient does have family history of her son having bladder cancer. Will send [facility] hereditary panel. Antineopla stic chemotherapy regimen 176623864 Z51.11 Week 1 5FU Leucovorin Vectibix on [...] and Vectibix on July 27, 2023. Hypokalemia 78304294 E87 .6 Patient returns on April 29, 2023. Potassium is low at 2.9. Will send prescripti on for potassium 20 mEq daily. Will follow-up labs again next week. Loss of appetite 5703365 6 R63.0 Patient has had nausea and decreased appetite since her cancer diagnosis. She can not tolerate her nutritiona l drinks. She does take Phenergan with relief. She continues to lose weight. Will send prescripti on for Megace. Acute conjunctivitis 927 96565 H10.32 Patient returns on May 11, 2023. She has had erythema, conjuntiva inflammati on, discharged and matted left eye. She has been using warm compresses . Will send prescripti on for eye drops for conjunctiv itis.Will send in repeat prescripti on for eye drops. Diarrhea 80858752 R19.7 Diarrhea has resolved. Patient with recent C diff Deep venou s thrombosis 660770066 I82.409 Patient developed right lower extremity pain and edema.Veno us duplex on May 28, 2023 with evidence of deep vein thrombosis . Started on Eliquis 5 mg 1 tab p.o. b.i.d.. Did not start with Eliquis starter pack due to recent bleeding. Patient had a DVT and a PE in 1990 after her hysterecto my. Anxiety 28870987 F41.9 Patient has had increased anxiety. She is tearful and crying during her visit today due to all of her health problems. She does not want to take an antidepres melina at this time. Discussed low-dose Ativan. Improvemen t in mood overall on visit from June 08, 2023. [id number] Hanna Snider PA-C [facility] [address] [facility] [address] [place] [address] 08/10/2023 09:01:37 08/10/2023 09:59:21 Malignant tumor of ascending colon 827609981 C18.2 CT scan of the abdomen and [...] 8.2 hematocrit 29.0. MCV 67.9. Platelet count 797432. Normal cell differenti al. Low serum folate [...] Will follow-up. Metastatic malignant neoplasm to liver 22644056 C78.7 CT scan of the abdomen and [...] Findings concerning for metastatic colon cancer. Nausea 541796955 R11.0 As needed Zofran and Phenergan prescribed . Pain due t o neoplastic disease 7595087509 9102 G89.3 Right upper quadrant pain secondary to liver metastasis . Patient currently taking Tylenol. Discussed as needed oxycodone to limit Tylenol exposure. Anemia 630781730 D64.9 Right-side d colon mass concerning for malignancy . Will assess for any signs of iron deficiency . Most recent hemoglobin at 8.0. Concern for blood loss from colon mass. Patient reports dark stools. Adopted 983872852 Z62.89 8 Patient is adopted and discussed hereditary gene panel. Patient does have family history of her son having bladder cancer. Will send [facility] hereditary panel. Antineopla stic chemotherapy regimen 275551613 Z51.11 Week 1 5FU Leucovorin Vectibix on [...] and Vectibix on August 10, 2023. Hypokalemia 61933885 E87 .6 Patient returns on April 29, 2023. Potassium is low at 2.9. Will send prescripti on for potassium 20 mEq daily. Will follow-up labs again next week. Loss of appetite 5171607 6 R63.0 Patient has had nausea and decreased appetite since her cancer diagnosis. She can not tolerate her nutritiona l drinks. She does take Phenergan with relief. She continues to lose weight. Will send prescripti on for Megace. Acute conjunctivitis 537 86663 H10.32 Patient returns on May 11, 2023. She has had erythema, conjuntiva inflammati on, discharged and matted left eye. She has been using warm compresses . Will send prescripti on for eye drops for conjunctiv itis.Will send in repeat prescripti on for eye drops. Diarrhea 87600710 R19.7 Diarrhea has resolved. Patient with recent C diff Deep venou s thrombosis 115827313 I82.409 Patient developed right lower extremity pain and edema.Veno us duplex on May 28, 2023 with evidence of deep vein thrombosis . Started on Eliquis 5 mg 1 tab p.o. b.i.d.. Did not start with Eliquis starter pack due to recent bleeding. Patient had a DVT and a PE in 1990 after her hysterecto my. Anxiety 81023404 F41.9 Patient has had increased anxiety. She is tearful and crying during her visit today due to all of her health problems. She does not want to take an antidepres melina at this time. Discussed low-dose Ativan. Improvemen t in mood overall on visit from June 08, 2023. [id number] Hanna Snider PA-C [facility] [address] [place] [address] 08/24/2023 09:22:37 08/24/2023 09:52:19 Malignant tumor of ascending colon 156743457 C18.2 CT scan of the abdomen and [...] 8.2 hematocrit 29.0. MCV 67.9. Platelet count 866277. Normal cell differenti al. Low serum folate [...] Will follow-up Metastatic malignant neoplasm to liver 11196747 C78.7 CT scan of the abdomen and [...] Findings concerning for metastatic colon cancer. Nausea 431642734 R11.0 As needed Zofran and Phenergan prescribed . Pain due t o neoplastic disease 3047512868 9102 G89.3 Right upper quadrant pain secondary to liver metastasis . Patient currently taking Tylenol. Discussed as needed oxycodone to limit Tylenol exposure. Anemia 322029382 D64.9 Right-side d colon mass concerning for malignancy . Will assess for any signs of iron deficiency . Most recent hemoglobin at 8.0. Concern for blood loss from colon mass. Patient reports dark stools. Adopted 018528692 Z62.89 8 Patient is adopted and discussed hereditary gene panel. Patient does have family history of her son having bladder cancer. Will send [facility] hereditary panel. Antineopla stic chemotherapy regimen 670799219 Z51.11 Week 1 5FU Leucovorin Vectibix on [...] and Vectibix on August 24, 2023. Hypokalemia 44125754 E87 .6 Patient returns on April 29, 2023. Potassium is low at 2.9. Will send prescripti on for potassium 20 mEq daily. Will follow-up labs again next week. Loss of appetite 8742321 6 R63.0 Patient has had nausea and decreased appetite since her cancer diagnosis. She can not tolerate her nutritiona l drinks. She does take Phenergan with relief. She continues to lose weight. Will send prescripti on for Megace. Acute conjunctivitis 537 16916 H10.32 Patient returns on May 11, 2023. She has had erythema, conjuntiva inflammati on, discharged and matted left eye. She has been using warm compresses . Will send prescripti on for eye drops for conjunctiv itis.Will send in repeat prescripti on for eye drops. Diarrhea 20690893 R19.7 Diarrhea has resolved. Patient with recent C diff Deep venou s thrombosis 177060584 I82.409 Patient developed right lower extremity pain and edema.Veno us duplex on May 28, 2023 with evidence of deep vein thrombosis . Started on Eliquis 5 mg 1 tab p.o. b.i.d.. Did not start with Eliquis starter pack due to recent bleeding. Patient had a DVT and a PE in 1990 after her hysterecto my. Anxiety 46822269 F41.9 Patient has had increased anxiety. She is tearful and crying during her visit today due to all of her health problems. She does not want to take an antidepres melina at this time. Discussed low-dose Ativan. Improvemen t in mood overall on visit from June 08, 2023. [id number] Hanna Snider PA-C [facility] [address] [facility] [address] [place] [address] 09/07/2023 08:42:30 09/07/2023 09:21:28 Malignant tumor of ascending colon 074021428 C18.2 CT scan of the abdomen and [...] 8.2 hematocrit 29.0. MCV 67.9. Platelet count 987090. Normal cell differenti al. Low serum folate [...] Will follow-up. Metastatic malignant neoplasm to liver 61589874 C78.7 CT scan of the abdomen and [...] Findings concerning for metastatic colon cancer. Nausea 267774018 R11.0 As needed Zofran and Phenergan prescribed . Pain due t o neoplastic disease 4296811815 9102 G89.3 Right upper quadrant pain secondary to liver metastasis . Patient currently taking Tylenol. Discussed as needed oxycodone to limit Tylenol exposure. Anemia 187555373 D64.9 Right-side d colon mass concerning for malignancy . Will assess for any signs of iron deficiency . Most recent hemoglobin at 8.0. Concern for blood loss from colon mass. Patient reports dark stools. Adopted 812843737 Z62.89 8 Patient is adopted and discussed hereditary gene panel. Patient does have family history of her son having bladder cancer. Will send [facility] hereditary panel. Antineopla stic chemotherapy regimen 738222067 Z51.11 Week 1 5FU Leucovorin Vectibix on [...] Vectibix today secondary to conjunctiv itis Hypokalemia 46018250 E87 .6 Patient returns on April 29, 2023. Potassium is low at 2.9. Will send prescripti on for potassium 20 mEq daily. Will follow-up labs again next week. Loss of appetite 6896989 6 R63.0 Patient has had nausea and decreased appetite since her cancer diagnosis. She can not tolerate her nutritiona l drinks. She does take Phenergan with relief. She continues to lose weight. Will send prescripti on for Megace. Acute conjunctivitis 531 46689 H10.32 Patient returns on May 11, 2023. She has had erythema, conjuntiva inflammati on, discharged and matted left eye. She has been using warm compresses . Will send prescripti on for eye drops for conjunctiv itis.Will send in repeat prescripti on for eye drops. Diarrhea 72065750 R19.7 Diarrhea has resolved. Patient with recent C diff Deep venou s thrombosis 323223859 I82.409 Patient developed right lower extremity pain and edema.Veno us duplex on May 28, 2023 with evidence of deep vein thrombosis . Started on Eliquis 5 mg 1 tab p.o. b.i.d.. Did not start with Eliquis starter pack due to recent bleeding. Patient had a DVT and a PE in 1990 after her hysterecto my. Anxiety 23433749 F41.9 Patient has had increased anxiety. She is tearful and crying during her visit today due to all of her health problems. She does not want to take an antidepres melina at this time. Discussed low-dose Ativan. Improvemen t in mood overall on visit from June 08, 2023. [id number] Tomy King MD [facility] [address] [place] [address] 09/21/2023 09:41:41 09/21/2023 11:20:44 Malignant tumor of ascending colon 991795769 C18.2 CT scan of the abdomen and [...] 8.2 hematocrit 29.0. MCV 67.9. Platelet count 354053. Normal cell differenti al. Low serum folate [...] to improve. Metastatic malignant neoplasm to liver 51152198 C78.7 CT scan of the abdomen and [...] Findings concerning for metastatic colon cancer. Nausea 651240812 R11.0 As needed Zofran and Phenergan prescribed . Pain due t o neoplastic disease 7439267980 9102 G89.3 Right upper quadrant pain secondary to liver metastasis . Patient currently taking Tylenol. Discussed as needed oxycodone to limit Tylenol exposure. Anemia 746400278 D64.9 Right-side d colon mass concerning for malignancy . Will assess for any signs of iron deficiency . Most recent hemoglobin at 8.0. Concern for blood loss from colon mass. Patient reports dark stools. Adopted 644771246 Z62.89 8 Patient is adopted and discussed hereditary gene panel. Patient does have family history of her son having bladder cancer. Will send [facility] hereditary panel. Antineopla stic chemotherapy regimen 594616510 Z51.11 Week 1 5FU Leucovorin Vectibix on [...] dose held secondary to conjunctiv itis. Hypokalemia 26413871 E87 .6 Patient returns on April 29, 2023. Potassium is low at 2.9. Will send prescripti on for potassium 20 mEq daily. Will follow-up labs again next week. Loss of appetite 9631425 6 R63.0 Patient has had nausea and decreased appetite since her cancer diagnosis. She can not tolerate her nutritiona l drinks. She does take Phenergan with relief. She continues to lose weight. Will send prescripti on for Megace. Acute conjunctivitis 537 47127 H10.32 Patient returns on May 11, 2023. She has had erythema, conjuntiva inflammati on, discharged and matted left eye. She has been using warm compresses . Will send prescripti on for eye drops for conjunctiv itis.Will send in repeat prescripti on for eye drops. Diarrhea 74115142 R19.7 Diarrhea has resolved. Patient with recent C diff Deep venou s thrombosis 565351249 I82.409 Patient developed right lower extremity pain and edema.Veno us duplex on May 28, 2023 with evidence of deep vein thrombosis . Started on Eliquis 5 mg 1 tab p.o. b.i.d.. Did not start with Eliquis starter pack due to recent bleeding. Patient had a DVT and a PE in 1990 after her hysterecto my. Anxiety 13844695 F41.9 Patient has had increased anxiety. She is tearful and crying during her visit today due to all of her health problems. She does not want to take an antidepres melina at this time. Discussed low-dose Ativan. Improvemen t in mood overall on visit from June 08, 2023. [id number] Hanna Snider PA-C [facility] [facility]olog [facility] [address] [place] [address] 10/05/2023 09:19:08 10/05/2023 10:17:18 Malignant tumor of ascending colon 669197533 C18.2 CT scan of the abdomen and [...] 8.2 hematocrit 29.0. MCV 67.9. Platelet count 635973. Normal cell differenti al. Low serum folate [...] bilaterall y. Metastatic malignant neoplasm to liver 20385301 C78.7 CT scan of the abdomen and [...] Findings concerning for metastatic colon cancer. Nausea 617076479 R11.0 As needed Zofran and Phenergan prescribed . Pain due t o neoplastic disease [id number] 9102 G89.3 Right upper quadrant pain secondary to liver metastasis . Patient currently taking Tylenol. Discussed as needed oxycodone to limit Tylenol exposure. Anemia 293879187 D64.9 Right-side d colon mass concerning for malignancy . Will assess for any signs of iron deficiency . Most recent hemoglobin at 8.0. Concern for blood loss from colon mass. Patient reports dark stools. Adopted [id number] Z62.89 8 Patient is adopted and discussed hereditary gene panel. Patient does have family history of her son having bladder cancer. Will send [facility] hereditary panel. Antineopla stic chemotherapy regimen 746820988 Z51.11 Week 1 5FU Leucovorin Vectibix on [...] membranes of the eyes bilaterall y. Hypokalemia 62359176 E87 .6 Patient returns on April 29, 2023. Potassium is low at 2.9. Will send prescripti on for potassium 20 mEq daily. Will follow-up labs again next week. Loss of appetite 0589724 6 R63.0 Patient has had nausea and decreased appetite since her cancer diagnosis. She can not tolerate her nutritiona l drinks. She does take Phenergan with relief. She continues to lose weight. Will send prescripti on for Megace. Acute conjunctivitis 537 86748 H10.32 Patient returns on May 11, 2023. She has had erythema, conjuntiva inflammati on, discharged and matted left eye. She has been using warm compresses . Will send prescripti on for eye drops for conjunctiv itis.Will send in repeat prescripti on for eye drops. Diarrhea 97619762 R19.7 Diarrhea has resolved. Patient with recent C diff Deep venou s thrombosis 170564043 I82.409 Patient developed right lower extremity pain and edema.Veno us duplex on May 28, 2023 with evidence of deep vein thrombosis . Started on Eliquis 5 mg 1 tab p.o. b.i.d.. Did not start with Eliquis starter pack due to recent bleeding. Patient had a DVT and a PE in 1990 after her hysterecto my. Anxiety 43763058 F41.9 Patient has had increased anxiety. She is tearful and crying during her visit today due to all of her health problems. She does not want to take an antidepres melina at this time. Discussed low-dose Ativan. Improvemen t in mood overall on visit from June 08, 2023. [id number] Hanna Snider PA-C [facility] [address] [place] [address] 10/19/2023 09:07:50 10/19/2023 10:19:57 Malignant tumor of ascending colon 595676381 C18.2 CT scan of the abdomen and [...] 8.2 hematocrit 29.0. MCV 67.9. Platelet count 803044. Normal cell differenti al. Low serum folate [...] appropriat froilan. Metastatic malignant neoplasm to liver 43404104 C78.7 CT scan of the abdomen and [...] Findings concerning for metastatic colon cancer. Nausea 275422869 R11.0 As needed Zofran and Phenergan prescribed . Pain due t o neoplastic disease 1925588040 9102 G89.3 Right upper quadrant pain secondary to liver metastasis . Patient currently taking Tylenol. Discussed as needed oxycodone to limit Tylenol exposure. Anemia 604595259 D64.9 Right-side d colon mass concerning for malignancy . Will assess for any signs of iron deficiency . Most recent hemoglobin at 8.0. Concern for blood loss from colon mass. Patient reports dark stools. Adopted 527260279 Z62.89 8 Patient is adopted and discussed hereditary gene panel. Patient does have family history of her son having bladder cancer. Will send [facility] hereditary panel. Antineopla stic chemotherapy regimen 506078482 Z51.11 Week 1 5FU Leucovorin Vectibix on [...] with Vectibix on October 19, 2023. Hypokalemia 37081167 E87 .6 Patient returns on April 29, 2023. Potassium is low at 2.9. Will send prescripti on for potassium 20 mEq daily. Will follow-up labs again next week. Loss of appetite 7091188 6 R63.0 Patient has had nausea and decreased appetite since her cancer diagnosis. She can not tolerate her nutritiona l drinks. She does take Phenergan with relief. She continues to lose weight. Will send prescripti on for Megace. Acute conjunctivitis 537 87090 H10.32 Patient returns on May 11, 2023. She has had erythema, conjuntiva inflammati on, discharged and matted left eye. She has been using warm compresses . Will send prescripti on for eye drops for conjunctiv itis.Will send in repeat prescripti on for eye drops. Diarrhea 34530596 R19.7 Diarrhea has resolved. Patient with recent C diff Deep venou s thrombosis 451821493 I82.409 Patient developed right lower extremity pain and edema.Veno us duplex on May 28, 2023 with evidence of deep vein thrombosis . Started on Eliquis 5 mg 1 tab p.o. b.i.d.. Did not start with Eliquis starter pack due to recent bleeding. Patient had a DVT and a PE in 1990 after her hysterecto my. Anxiety 81718770 F41.9 Patient has had increased anxiety. She is tearful and crying during her visit today due to all of her health problems. She does not want to take an antidepres melina at this time. Discussed low-dose Ativan. Improvemen t in mood overall on visit from June 08, 2023. [id number] Hanna Snider PA-C [facility] [address] [facility] [address] [place] [address] 11/02/2023 09:20:10 11/02/2023 09:58:16 Malignant tumor of ascending colon 462400291 C18.2 CT scan of the abdomen and [...] 8.2 hematocrit 29.0. MCV 67.9. Platelet count 052215. Normal cell differenti al. Low serum folate [...] ed Eliquis Metastatic malignant neoplasm to liver 01347446 C78.7 CT scan of the abdomen and [...] Findings concerning for metastatic colon cancer. Nausea 503475466 R11.0 As needed Zofran and Phenergan prescribed . Pain due t o neoplastic disease 8327864227 9102 G89.3 Right upper quadrant pain secondary to liver metastasis . Patient currently taking Tylenol. Discussed as needed oxycodone to limit Tylenol exposure. Anemia 834640124 D64.9 Right-side d colon mass concerning for malignancy . Will assess for any signs of iron deficiency . Most recent hemoglobin at 8.0. Concern for blood loss from colon mass. Patient reports dark stools. Adopted 995112845 Z62.89 8 Patient is adopted and discussed hereditary gene panel. Patient does have family history of her son having bladder cancer. Will send [facility] hereditary panel. Antineopla stic chemotherapy regimen 168641987 Z51.11 Week 1 5FU Leucovorin Vectibix on [...] with Vectibix on November 02, 2023. Hypokalemia 81683795 E87 .6 Patient returns on April 29, 2023. Potassium is low at 2.9. Will send prescripti on for potassium 20 mEq daily. Will follow-up labs again next week. Loss of appetite 2698385 6 R63.0 Patient has had nausea and decreased appetite since her cancer diagnosis. She can not tolerate her nutritiona l drinks. She does take Phenergan with relief. She continues to lose weight. Will send prescripti on for Megace. Acute conjunctivitis 537 39697 H10.32 Patient returns on May 11, 2023. She has had erythema, conjuntiva inflammati on, discharged and matted left eye. She has been using warm compresses . Will send prescripti on for eye drops for conjunctiv itis.Will send in repeat prescripti on for eye drops. Diarrhea 17010067 R19.7 Diarrhea has resolved. Patient with recent C diff Deep venou s thrombosis 850928552 I82.409 Patient developed right lower extremity pain and edema.Veno us duplex on May 28, 2023 with evidence of deep vein thrombosis . Started on Eliquis 5 mg 1 tab p.o. b.i.d.. Did not start with Eliquis starter pack due to recent bleeding. Patient had a DVT and a PE in 1990 after her hysterecto my. Anxiety 07065646 F41.9 Patient has had increased anxiety. She is tearful and crying during her visit today due to all of her health problems. She does not want to take an antidepres melina at this time. Discussed low-dose Ativan. Improvemen t in mood overall on visit from June 08, 2023. [id number] Addy Gonzales MD [facility] Surgery [address] [place] [address] 11/03/2023 13:09:58 11/03/2023 14:02:01 Malignant tumor of ascending colon 217762253 C18.2 I have scheduled the patient for [...] as a part of this patient's care. [id number] Hanna Snider PA-C [facility] [address] [place] [address] 11/23/2023 09:05:54 11/23/2023 09:52:19 Malignant tumor of ascending colon 982154952 C18.2 CT scan of the abdomen and [...] 8.2 hematocrit 29.0. MCV 67.9. Platelet count 714039. Normal cell differenti al. Low serum folate [...] mg daily. Metastatic malignant neoplasm to liver 32344282 C78.7 CT scan of the abdomen and [...] Findings concerning for metastatic colon cancer. Nausea 898303365 R11.0 As needed Zofran and Phenergan prescribed . Pain due t o neoplastic disease 3606111596 9102 G89.3 Right upper quadrant pain secondary to liver metastasis . Patient currently taking Tylenol. Discussed as needed oxycodone to limit Tylenol exposure. Anemia 404469240 D64.9 Right-side d colon mass concerning for malignancy . Will assess for any signs of iron deficiency . Most recent hemoglobin at 8.0. Concern for blood loss from colon mass. Patient reports dark stools. Adopted 094998685 Z62.89 8 Patient is adopted and discussed hereditary gene panel. Patient does have family history of her son having bladder cancer. Will send [facility] hereditary panel. Antineopla stic chemotherapy regimen 625761178 Z51.11 Week 1 5FU Leucovorin Vectibix on [...] with Vectibix on November 23, 2023. Hypokalemia 68471946 E87 .6 Patient returns on April 29, 2023. Potassium is low at 2.9. Will send prescripti on for potassium 20 mEq daily. Will follow-up labs again next week. Loss of appetite 6164321 6 R63.0 Patient has had nausea and decreased appetite since her cancer diagnosis. She can not tolerate her nutritiona l drinks. She does take Phenergan with relief. She continues to lose weight. Will send prescripti on for Megace. Acute conjunctivitis 537 90889 H10.32 Patient returns on May 11, 2023. She has had erythema, conjuntiva inflammati on, discharged and matted left eye. She has been using warm compresses . Will send prescripti on for eye drops for conjunctiv itis.Will send in repeat prescripti on for eye drops. Diarrhea 67115402 R19.7 Diarrhea has resolved. Patient with recent C diff Deep venou s thrombosis 718879076 I82.409 Patient developed right lower extremity pain and edema.Veno us duplex on May 28, 2023 with evidence of deep vein thrombosis . Started on Eliquis 5 mg 1 tab p.o. b.i.d.. Did not start with Eliquis starter pack due to recent bleeding. Patient had a DVT and a PE in 1990 after her hysterecto my. Anxiety 87706836 F41.9 Patient has had increased anxiety. She is tearful and crying during her visit today due to all of her health problems. She does not want to take an antidepres melina at this time. Discussed low-dose Ativan. Improvemen t in mood overall on visit from June 08, 2023. Mixed anxi ety and depressive disorder 518580903 F41.8 Patient returns on November 23, 2023. [...] Mirtazapin e dose to 30 mg daily. [id number] Tomy King MD [facility] [address] [place] [address] 12/07/2023 09:01:54 12/07/2023 09:40:34 Malignant tumor of ascending colon 269767950 C18.2 CT scan of the abdomen and [...] 8.2 hematocrit 29.0. MCV 67.9. Platelet count 948753. Normal cell differenti al. Low serum folate [...] 2 weeks. Metastatic malignant neoplasm to liver 31017890 C78.7 CT scan of the abdomen and [...] Findings concerning for metastatic colon cancer. Nausea 191314291 R11.0 As needed Zofran and Phenergan prescribed . Pain due t o neoplastic disease 0828174034 9102 G89.3 Right upper quadrant pain secondary to liver metastasis . Patient currently taking Tylenol. Discussed as needed oxycodone to limit Tylenol exposure. Anemia 547048625 D64.9 Right-side d colon mass concerning for malignancy . Will assess for any signs of iron deficiency . Most recent hemoglobin at 8.0. Concern for blood loss from colon mass. Patient reports dark stools. Adopted 574185087 Z62.89 8 Patient is adopted and discussed hereditary gene panel. Patient does have family history of her son having bladder cancer. Will send [facility] hereditary panel. Antineopla stic chemotherapy regimen 035146980 Z51.11 Week 1 5FU Leucovorin Vectibix on [...] with Vectibix on December 07, 2023. Hypokalemia 72518869 E87 .6 Patient returns on April 29, 2023. Potassium is low at 2.9. Will send prescripti on for potassium 20 mEq daily. Will follow-up labs again next week. Deep venou s thrombosis 474738205 I82.409 Patient developed right lower extremity pain and edema.Veno us duplex on May 28, 2023 with evidence of deep vein thrombosis . Started on Eliquis 5 mg 1 tab p.o. b.i.d.. Did not start with Eliquis starter pack due to recent bleeding. Patient had a DVT and a PE in 1990 after her hysterecto my. Mixed anxi ety and depressive disorder 962751543 F41.8 Patient returns on November 23, 2023. [...] to 30 mg daily. Atopic conjunctivitis 23 2305744 H10.12 Patient with conjunctiv itis of the left eye. Holding Vectibix today on December 07, 2023. Continue with current therapy. Will follow up again in 2 weeks. [id number] Hanna Snider PA-C [facility] [address] [place] [address] 12/21/2023 09:48:25 12/21/2023 10:21:03 Malignant tumor of ascending colon 538365848 C18.2 CT scan of the abdomen and [...] 8.2 hematocrit 29.0. MCV 67.9. Platelet count 155219. Normal cell differenti al. Low serum folate [...] 2 weeks. Metastatic malignant neoplasm to liver 30466969 C78.7 CT scan of the abdomen and [...] Findings concerning for metastatic colon cancer. Nausea 666572160 R11.0 As needed Zofran and Phenergan prescribed . Pain due t o neoplastic disease 2240198121 9102 G89.3 Right upper quadrant pain secondary to liver metastasis . Patient currently taking Tylenol. Discussed as needed oxycodone to limit Tylenol exposure. Anemia 446556327 D64.9 Right-side d colon mass concerning for malignancy . Will assess for any signs of iron deficiency . Most recent hemoglobin at 8.0. Concern for blood loss from colon mass. Patient reports dark stools. Adopted 883628814 Z62.89 8 Patient is adopted and discussed hereditary gene panel. Patient does have family history of her son having bladder cancer. Will send [facility] hereditary panel. Antineopla stic chemotherapy regimen 929487107 Z51.11 Week 1 5FU Leucovorin Vectibix on [...] with Vectibix on November 21, 2023. Hypokalemia 73500179 E87 .6 Patient returns on April 29, 2023. Potassium is low at 2.9. Will send prescripti on for potassium 20 mEq daily. Will follow-up labs again next week. Deep venou s thrombosis 771378561 I82.409 Patient developed right lower extremity pain and edema.Veno us duplex on May 28, 2023 with evidence of deep vein thrombosis . Started on Eliquis 5 mg 1 tab p.o. b.i.d.. Did not start with Eliquis starter pack due to recent bleeding. Patient had a DVT and a PE in 1990 after her hysterecto my. Mixed anxi ety and depressive disorder 736780854 F41.8 Patient returns on November 23, 2023. [...] to 30 mg daily. Atopic conjunctivitis 23 4993431 H10.12 Patient with conjunctiv itis of the left eye. Held Vectibix on December 07, 2023. Continue with current therapy. Will follow up again in 2 weeks. [id number] Hanna Snider PA-C [facility] [address] [place] [address] 01/04/2024 09:55:59 01/04/2024 10:32:04 Malignant tumor of ascending colon 673223458 C18.2 CT scan of the abdomen and [...] 8.2 hematocrit 29.0. MCV 67.9. Platelet count 875211. Normal cell differenti al. Low serum folate [...] January 2024. Metastatic malignant neoplasm to liver 17399431 C78.7 CT scan of the abdomen and [...] Findings concerning for metastatic colon cancer. Nausea 903194069 R11.0 As needed Zofran and Phenergan prescribed . Pain due t o neoplastic disease 5868660427 9102 G89.3 Right upper quadrant pain secondary to liver metastasis . Patient currently taking Tylenol. Discussed as needed oxycodone to limit Tylenol exposure. Anemia 410651598 D64.9 Right-side d colon mass concerning for malignancy . Will assess for any signs of iron deficiency . Most recent hemoglobin at 8.0. Concern for blood loss from colon mass. Patient reports dark stools. Adopted 236173105 Z62.89 8 Patient is adopted and discussed hereditary gene panel. Patient does have family history of her son having bladder cancer. Will send [facility] hereditary panel. Antineopla stic chemotherapy regimen 359630167 Z51.11 Week 1 5FU Leucovorin Vectibix on [...] without Vectibix on January 04, 2024. Hypokalemia 48708218 E87 .6 Patient returns on April 29, 2023. Potassium is low at 2.9. Will send prescripti on for potassium 20 mEq daily. Will follow-up labs again next week. Deep venou s thrombosis 189610574 I82.409 Patient developed right lower extremity pain and edema.Veno us duplex on May 28, 2023 with evidence of deep vein thrombosis . Started on Eliquis 5 mg 1 tab p.o. b.i.d.. Did not start with Eliquis starter pack due to recent bleeding. Patient had a DVT and a PE in 1990 after her hysterecto my. Mixed anxi ety and depressive disorder 636507236 F41.8 Patient returns on November 23, 2023. [...] to 30 mg daily. Atopic conjunctivitis 23 4840343 H10.12 Patient with conjunctiv itis of the left eye. Held Vectibix on December 07, 2023. Continue with current therapy. Will follow up again in 2 weeks. Iron defic iency anemia 88358619 D50.9 [id number] Hanna Snider PA-C [facility] [address] [place] [address] 01/25/2024 09:42:09 01/25/2024 10:49:14 Malignant tumor of ascending colon 025189347 C18.2 CT scan of the abdomen and [...] 8.2 hematocrit 29.0. MCV 67.9. Platelet count 691428. Normal cell differenti al. Low serum folate [...] Will schedule. Metastatic malignant neoplasm to liver 24815894 C78.7 CT scan of the abdomen and [...] Findings concerning for metastatic colon cancer. Nausea 958421107 R11.0 As needed Zofran and Phenergan prescribed . Pain due t o neoplastic disease 1140527733 9102 G89.3 Right upper quadrant pain secondary to liver metastasis . Patient currently taking Tylenol. Discussed as needed oxycodone to limit Tylenol exposure. Anemia 044564596 D64.9 Right-side d colon mass concerning for malignancy . Will assess for any signs of iron deficiency . Most recent hemoglobin at 8.0. Concern for blood loss from colon mass. Patient reports dark stools. Adopted 228411624 Z62.89 8 Patient is adopted and discussed hereditary gene panel. Patient does have family history of her son having bladder cancer. Will send [facility] hereditary panel. Antineopla stic chemotherapy regimen 114077901 Z51.11 Week 1 5FU Leucovorin Vectibix on [...] with Vectibix on January 25, 2024. Hypokalemia 05657377 E87 .6 Patient returns on April 29, 2023. Potassium is low at 2.9. Will send prescripti on for potassium 20 mEq daily. Will follow-up labs again next week. Deep venou s thrombosis 468987702 I82.409 Patient developed right lower extremity pain and edema.Veno us duplex on May 28, 2023 with evidence of deep vein thrombosis . Started on Eliquis 5 mg 1 tab p.o. b.i.d.. Did not start with Eliquis starter pack due to recent bleeding. Patient had a DVT and a PE in 1990 after her hysterecto my. Mixed anxi ety and depressive disorder 476513295 F41.8 Patient returns on November 23, 2023. [...] to 30 mg daily. Atopic conjunctivitis 23 6843753 H10.12 Patient with conjunctiv itis of the left eye. Held Vectibix on December 07, 2023. Continue with current therapy. Will follow up again in 2 weeks. Iron defic iency anemia 37621895 D50.9 [id number] Hanna Snider PA-C [facility] [address] [place] [address] 02/08/2024 09:30:04 02/08/2024 10:49:29 Malignant tumor of ascending colon 801672922 C18.2 CT scan of the abdomen and [...] 8.2 hematocrit 29.0. MCV 67.9. Platelet count 057120. Normal cell differenti al. Low serum folate [...] follow-up imaging. Metastatic malignant neoplasm to liver 90774023 C78.7 CT scan of the abdomen and [...] Findings concerning for metastatic colon cancer. Nausea 605351353 R11.0 As needed Zofran and Phenergan prescribed . Pain due t o neoplastic disease 6831240225 9102 G89.3 Right upper quadrant pain secondary to liver metastasis . Patient currently taking Tylenol. Discussed as needed oxycodone to limit Tylenol exposure. Anemia 463538910 D64.9 Right-side d colon mass concerning for malignancy . Will assess for any signs of iron deficiency . Most recent hemoglobin at 8.0. Concern for blood loss from colon mass. Patient reports dark stools. Adopted 704114018 Z62.89 8 Patient is adopted and discussed hereditary gene panel. Patient does have family history of her son having bladder cancer. Will send [facility] hereditary panel. Antineopla stic chemotherapy regimen 494966234 Z51.11 Week 1 5FU Leucovorin Vectibix on [...] without Vectibix on February 08, 2024. Hypokalemia 57017258 E87 .6 Patient returns on April 29, 2023. Potassium is low at 2.9. Will send prescripti on for potassium 20 mEq daily. Will follow-up labs again next week. Deep venou s thrombosis 702929919 I82.409 Patient developed right lower extremity pain and edema.Veno us duplex on May 28, 2023 with evidence of deep vein thrombosis . Started on Eliquis 5 mg 1 tab p.o. b.i.d.. Did not start with Eliquis starter pack due to recent bleeding. Patient had a DVT and a PE in 1990 after her hysterecto my. Mixed anxi ety and depressive disorder 219163048 F41.8 Patient returns on November 23, 2023. [...] to 30 mg daily. Atopic conjunctivitis 23 9866280 H10.12 Patient with conjunctiv itis of the left eye. Held Vectibix on December 07, 2023. Continue with current therapy. Will follow up again in 2 weeks. Iron defic iency anemia 67950752 D50.9 Will follow up labs Insomnia 058665688 G47.0 0 Patient returns on February 08, 2024. She has had difficulty sleeping for most of her life. She has tried multiple medication s without relief. She is tried Mirtazapin e and lorazepam without improvemen t of insomnia. Discussed trying trazodone instead. Will send prescripti on. Will send prescripti on for Requip for restless legs. Restless legs 58806502 G 25.81 Patient returns on February 08, 2024. She has had difficulty sleeping for most of her life. She has tried multiple medication s without relief. She is tried Mirtazapin e and lorazepam without improvemen t of insomnia. Discussed trying trazodone instead. Will send prescripti on. Will send prescripti on for Requip for restless legs. [id number] Hanna Snider PA-C [facility] [address] [facility] [address] [place] [address] 02/22/2024 10:08:45 02/22/2024 10:41:02 Malignant tumor of ascending colon 827319807 C18.2 CT scan of the abdomen and [...] 8.2 hematocrit 29.0. MCV 67.9. Platelet count 727740. Normal cell differenti al. Low serum folate [...] 15, 2024. Metastatic malignant neoplasm to liver 20587142 C78.7 CT scan of the abdomen and [...] Findings concerning for metastatic colon cancer. Nausea 809067489 R11.0 As needed Zofran and Phenergan prescribed . Pain due t o neoplastic disease 0954527488 9102 G89.3 Right upper quadrant pain secondary to liver metastasis . Patient currently taking Tylenol. Discussed as needed oxycodone to limit Tylenol exposure. Anemia 459487131 D64.9 Right-side d colon mass concerning for malignancy . Will assess for any signs of iron deficiency . Most recent hemoglobin at 8.0. Concern for blood loss from colon mass. Patient reports dark stools. Adopted [id number] Z62.89 8 Patient is adopted and discussed hereditary gene panel. Patient does have family history of her son having bladder cancer. Will send [facility] hereditary panel. Antineopla stic chemotherapy regimen [id number] Z51.11 Week 1 5FU Leucovorin Vectibix on [...] with Vectibix on February 22, 2024. Hypokalemia 03336828 E87 .6 Patient returns on April 29, 2023. Potassium is low at 2.9. Will send prescripti on for potassium 20 mEq daily. Will follow-up labs again next week. Deep venou s thrombosis [id number] I82.409 Patient developed right lower extremity pain and edema.Veno us duplex on May 28, 2023 with evidence of deep vein thrombosis . Started on Eliquis 5 mg 1 tab p.o. b.i.d.. Did not start with Eliquis starter pack due to recent bleeding. Patient had a DVT and a PE in 1990 after her hysterecto my. Mixed anxi ety and depressive disorder 689550350 F41.8 Patient returns on November 23, 2023. [...] to 30 mg daily. Atopic conjunctivitis 23 6562309 H10.12 Patient with conjunctiv itis of the left eye. Held Vectibix on December 07, 2023. Continue with current therapy. Will follow up again in 2 weeks. Iron defic iency anemia 27434891 D50.9 Will follow up labs Insomnia 362217886 G47.0 0 Patient returns on February 08, 2024. She has had difficulty sleeping for most of her life. She has tried multiple medication s without relief. She is tried Mirtazapin e and lorazepam without improvemen t of insomnia. Discussed trying trazodone instead. Will send prescripti on. Will send prescripti on for Requip for restless legs. Restless legs 99234379 G 25.81 Patient returns on February 08, 2024. She has had difficulty sleeping for most of her life. She has tried multiple medication s without relief. She is tried Mirtazapin e and lorazepam without improvemen t of insomnia. Discussed trying trazodone instead. Will send prescripti on. Will send prescripti on for Requip for restless legs. Infection of skin and/or subcutaneous tissue 76781894 L08.9 Patient returns on February 22, 2024. Patient has paronychia of the left ring finger after pulling a piece of loose skin yesterday. No abscess or drainage present. Discussed topical antibiotic s plus warm water soaks. Will send prescripti on. Discussed if does not improve or worsens will do oral antibiotic s. Will follow-up. [id number] Hanna Snider PA-C [facility] [address] [facility] [address] [place] [address] 03/07/2024 10:12:33 03/07/2024 11:14:04 Malignant tumor of ascending colon 197205272 C18.2 CT scan of the abdomen and [...] 8.2 hematocrit 29.0. MCV 67.9. Platelet count 004385. Normal cell differenti al. Low serum folate [...] 15, 2024. Metastatic malignant neoplasm to liver 20339380 C78.7 CT scan of the abdomen and [...] Findings concerning for metastatic colon cancer. Nausea 511310316 R11.0 As needed Zofran and Phenergan prescribed . Pain due t o neoplastic disease [id number] 9102 G89.3 Right upper quadrant pain secondary to liver metastasis . Patient currently taking Tylenol. Discussed as needed oxycodone to limit Tylenol exposure. Anemia 097737071 D64.9 Right-side d colon mass concerning for malignancy . Will assess for any signs of iron deficiency . Most recent hemoglobin at 8.0. Concern for blood loss from colon mass. Patient reports dark stools. Adopted 376391750 Z62.89 8 Patient is adopted and discussed hereditary gene panel. Patient does have family history of her son having bladder cancer. Will send [facility] hereditary panel. Antineopla stic chemotherapy regimen 096839382 Z51.11 Week 1 5FU Leucovorin Vectibix on [...] with Vectibix on March 07, 2024. Hypokalemia 19385848 E87 .6 Patient returns on April 29, 2023. Potassium is low at 2.9. Will send prescripti on for potassium 20 mEq daily. Will follow-up labs again next week. Deep venou s thrombosis 150518317 I82.409 Patient developed right lower extremity pain and edema.Veno us duplex on May 28, 2023 with evidence of deep vein thrombosis . Started on Eliquis 5 mg 1 tab p.o. b.i.d.. Did not start with Eliquis starter pack due to recent bleeding. Patient had a DVT and a PE in 1990 after her hysterecto my. Mixed anxi ety and depressive disorder 309729281 F41.8 Patient returns on November 23, 2023. [...] to 30 mg daily. Atopic conjunctivitis 23 9176991 H10.12 Patient with conjunctiv itis of the left eye. Held Vectibix on December 07, 2023. Continue with current therapy. Will follow up again in 2 weeks. Iron defic iency anemia 92538459 D50.9 Will follow up labs Insomnia 827234763 G47.0 0 Patient returns on February 08, 2024. She has had difficulty sleeping for most of her life. She has tried multiple medication s without relief. She is tried Mirtazapin e and lorazepam without improvemen t of insomnia. Discussed trying trazodone instead. Will send prescripti on. Will send prescripti on for Requip for restless legs. Restless legs 78407058 G 25.81 Patient returns on February 08, 2024. She has had difficulty sleeping for most of her life. She has tried multiple medication s without relief. She is tried Mirtazapin e and lorazepam without improvemen t of insomnia. Discussed trying trazodone instead. Will send prescripti on. Will send prescripti on for Requip for restless legs. Infection of skin and/or subcutaneous tissue 35549637 L08.9 Patient returns on February 22, 2024. Patient has paronychia of the left ring finger after pulling a piece of loose skin yesterday. No abscess or drainage present. Discussed topical antibiotic s plus warm water soaks. Will send prescripti on. Discussed if does not improve or worsens will do oral antibiotic s. Will follow-up. This has resolved. [id number] Hanna Snider PA-C [facility] [address] [facility] [address] [place] [address] 03/21/2024 09:44:36 03/21/2024 10:52:41 Malignant tumor of ascending colon 149800497 C18.2 CT scan of the abdomen and [...] 8.2 hematocrit 29.0. MCV 67.9. Platelet count 832549. Normal cell differenti al. Low serum folate [...] current therapy. Metastatic malignant neoplasm to liver 71228183 C78.7 CT scan of the abdomen and [...] Findings concerning for metastatic colon cancer. Nausea 930024126 R11.0 As needed Zofran and Phenergan prescribed . Pain due t o neoplastic disease 3052910668 9102 G89.3 Right upper quadrant pain secondary to liver metastasis . Patient currently taking Tylenol. Discussed as needed oxycodone to limit Tylenol exposure. Anemia 753673802 D64.9 Right-side d colon mass concerning for malignancy . Will assess for any signs of iron deficiency . Most recent hemoglobin at 8.0. Concern for blood loss from colon mass. Patient reports dark stools. Adopted [id number] Z62.89 8 Patient is adopted and discussed hereditary gene panel. Patient does have family history of her son having bladder cancer. Will send [facility] hereditary panel. Antineopla stic chemotherapy regimen 587157270 Z51.11 Week 1 5FU Leucovorin Vectibix on [...] with Vectibix on March 21, 2024. Hypokalemia 66665428 E87 .6 Patient returns on April 29, 2023. Potassium is low at 2.9. Will send prescripti on for potassium 20 mEq daily. Will follow-up labs again next week. Deep venou s thrombosis 320912244 I82.409 Patient developed right lower extremity pain and edema.Veno us duplex on May 28, 2023 with evidence of deep vein thrombosis . Started on Eliquis 5 mg 1 tab p.o. b.i.d.. Did not start with Eliquis starter pack due to recent bleeding. Patient had a DVT and a PE in 1990 after her hysterecto my. Mixed anxi ety and depressive disorder 868480731 F41.8 Patient returns on November 23, 2023. [...] to 30 mg daily. Atopic conjunctivitis 23 5491881 H10.12 Patient with conjunctiv itis of the left eye. Held Vectibix on December 07, 2023. Continue with current therapy. Will follow up again in 2 weeks. Iron defic iency anemia 42412704 D50.9 Will follow up labs Insomnia 102407908 G47.0 0 Patient returns on February 08, 2024. She has had difficulty sleeping for most of her life. She has tried multiple medication s without relief. She is tried Mirtazapin e and lorazepam without improvemen t of insomnia. Discussed trying trazodone instead. Will send prescripti on. Will send prescripti on for Requip for restless legs. Restless legs 92041992 G 25.81 Patient returns on February 08, 2024. She has had difficulty sleeping for most of her life. She has tried multiple medication s without relief. She is tried Mirtazapin e and lorazepam without improvemen t of insomnia. Discussed trying trazodone instead. Prescripti on sent for Requip for restless legs. [id number] Hanna Snider PA-C [facility] [address] [place] [address] 04/04/2024 09:54:49 04/04/2024 10:42:05 Malignant tumor of ascending colon 523443647 C18.2 CT scan of the abdomen and [...] 8.2 hematocrit 29.0. MCV 67.9. Platelet count 327787. Normal cell differenti al. Low serum folate [...] with anxiety and depression . Discussed antidepres melian. Patient agreeable Will send prescripti on for [...] current therapy. Metastatic malignant neoplasm to liver 14053315 C78.7 CT scan of the abdomen and [...] Findings concerning for metastatic colon cancer. Nausea 378435899 R11.0 As needed Zofran and Phenergan prescribed . Pain due t o neoplastic disease 4695108771 9102 G89.3 Right upper quadrant pain secondary to liver metastasis . Patient currently taking Tylenol. Discussed as needed oxycodone to limit Tylenol exposure. Anemia 720071300 D64.9 Right-side d colon mass concerning for malignancy . Will assess for any signs of iron deficiency . Most recent hemoglobin at 8.0. Concern for blood loss from colon mass. Patient reports dark stools. Adopted 140437163 Z62.89 8 Patient is adopted and discussed hereditary gene panel. Patient does have family history of her son having bladder cancer. Will send [facility] hereditary panel. Antineopla stic chemotherapy regimen 719637361 Z51.11 Week 1 5FU Leucovorin Vectibix on [...] without Vectibix on April 04, 2024. Hypokalemia 15279765 E87 .6 Patient returns on April 29, 2023. Potassium is low at 2.9. Will send prescripti on for potassium 20 mEq daily. Will follow-up labs again next week. Deep venou s thrombosis 903925878 I82.409 Patient developed right lower extremity pain and edema.Veno us duplex on May 28, 2023 with evidence of deep vein thrombosis . Started on Eliquis 5 mg 1 tab p.o. b.i.d.. Did not start with Eliquis starter pack due to recent bleeding. Patient had a DVT and a PE in 1990 after her hysterecto my. Mixed anxi ety and depressive disorder 136976341 F41.8 Patient returns on November 23, 2023. [...] prescripti on for Cymbalta. Atopic conjunctivitis 23 5299095 H10.12 Patient with conjunctiv itis of the left eye. Held Vectibix on December 07, 2023. Continue with current therapy. Will follow up again in 2 weeks. Iron defic iency anemia 90120935 D50.9 Will follow up labs Insomnia 261674971 G47.0 0 Patient returns on February 08, 2024. She has had difficulty sleeping for most of her life. She has tried multiple medication s without relief. She is tried Mirtazapin e and lorazepam without improvemen t of insomnia. Discussed trying trazodone instead. Will send prescripti on. Will send prescripti on for Requip for restless legs. Restless legs 76046848 G 25.81 Patient returns on February 08, [...] also send prescripti on for fluconazol e. [id number] Hanna Snider PA-C [facility] [address] [place] [address] 04/18/2024 09:51:34 04/18/2024 11:21:47 Malignant tumor of ascending colon 405089584 C18.2 CT scan of the abdomen and [...] 8.2 hematocrit 29.0. MCV 67.9. Platelet count 824179. Normal cell differenti al. Low serum folate [...] current therapy. Metastatic malignant neoplasm to liver 64966752 C78.7 CT scan of the abdomen and [...] Findings concerning for metastatic colon cancer. Nausea 544418393 R11.0 As needed Zofran and Phenergan prescribed . Pain due t o neoplastic disease 7566252689 9102 G89.3 Right upper quadrant pain secondary to liver metastasis . Patient currently taking Tylenol. Discussed as needed oxycodone to limit Tylenol exposure. Anemia 667189966 D64.9 Right-side d colon mass concerning for malignancy . Will assess for any signs of iron deficiency . Most recent hemoglobin at 8.0. Concern for blood loss from colon mass. Patient reports dark stools. Adopted 253874257 Z62.89 8 Patient is adopted and discussed hereditary gene panel. Patient does have family history of her son having bladder cancer. Will send [facility] hereditary panel. Antineopla stic chemotherapy regimen 929312351 Z51.11 Week 1 5FU Leucovorin Vectibix on [...] without Vectibix on April 18, 2024. Hypokalemia 47412574 E87 .6 Patient returns on April 29, 2023. Potassium is low at 2.9. Will send prescripti on for potassium 20 mEq daily. Will follow-up labs again next week. Deep venou s thrombosis 543792451 I82.409 Patient developed right lower extremity pain and edema.Veno us duplex on May 28, 2023 with evidence of deep vein thrombosis . Started on Eliquis 5 mg 1 tab p.o. b.i.d.. Did not start with Eliquis starter pack due to recent bleeding. Patient had a DVT and a PE in 1990 after her hysterecto my. Mixed anxi ety and depressive disorder 324511357 F41.8 Patient returns on November 23, 2023. [...] send prescripti on for Cymbalta. Atopic conjunctivitis 4300504 H10.12 Patient with conjunctiv itis of the left eye. Held Vectibix on December 07, 2023. Continue with current therapy. Will follow up again in 2 weeks. Iron defic iency anemia 35967696 D50.9 Will follow up labs Insomnia 476322222 G47.0 0 Patient returns on February 08, 2024. She has had difficulty sleeping for most of her life. She has tried multiple medication s without relief. She is tried Mirtazapin e and lorazepam without improvemen t of insomnia. Discussed trying trazodone instead. Will send prescripti on. Will send prescripti on for Requip for restless legs. Restless legs 98932277 G 25.81 Patient returns on February 08, [...] also send prescripti on for fluconazol e. [id number] Hanna Snider PA-C [facility] [address] [place] [address] 05/02/2024 09:52:10 05/02/2024 10:44:11 Malignant tumor of ascending colon 524546419 C18.2 CT scan of the abdomen and [...] 8.2 hematocrit 29.0. MCV 67.9. Platelet count 511458. Normal cell differenti al. Low serum folate [...] current therapy. Metastatic malignant neoplasm to liver 98221277 C78.7 CT scan of the abdomen and [...] Findings concerning for metastatic colon cancer. Nausea 257581101 R11.0 As needed Zofran and Phenergan prescribed . Pain due t o neoplastic disease 1320345421 9102 G89.3 Right upper quadrant pain secondary to liver metastasis . Patient currently taking Tylenol. Discussed as needed oxycodone to limit Tylenol exposure. Anemia 685545446 D64.9 Right-side d colon mass concerning for malignancy . Will assess for any signs of iron deficiency . Most recent hemoglobin at 8.0. Concern for blood loss from colon mass. Patient reports dark stools. Adopted 548144419 Z62.89 8 Patient is adopted and discussed hereditary gene panel. Patient does have family history of her son having bladder cancer. Will send [facility] hereditary panel. Antineopla stic chemotherapy regimen 542850231 Z51.11 Week 1 5FU Leucovorin Vectibix on [...] without Vectibix on May 02, 2024. Hypokalemia 69157649 E87 .6 Patient returns on April 29, 2023. Potassium is low at 2.9. Will send prescripti on for potassium 20 mEq daily. Will follow-up labs again next week. Deep venou s thrombosis 283810690 I82.409 Patient developed right lower extremity pain and edema.Veno us duplex on May 28, 2023 with evidence of deep vein thrombosis . Started on Eliquis 5 mg 1 tab p.o. b.i.d.. Did not start with Eliquis starter pack due to recent bleeding. Patient had a DVT and a PE in 1990 after her hysterecto my. Mixed anxi ety and depressive disorder 669779303 F41.8 Patient returns on November 23, 2023. [...] prescripti on for Cymbalta. Atopic conjunctivitis 23 4045548 H10.12 Patient with conjunctiv itis of the left eye. Held Vectibix on December 07, 2023. Continue with current therapy. Will follow up again in 2 weeks. Iron defic iency anemia 82440573 D50.9 Will follow up labs Insomnia 556255936 G47.0 0 Patient returns on February 08, 2024. She has had difficulty sleeping for most of her life. She has tried multiple medication s without relief. She is tried Mirtazapin e and lorazepam without improvemen t of insomnia. Discussed trying trazodone instead. Will send prescripti on. Will send prescripti on for Requip for restless legs. Restless legs 26675887 G 25.81 Patient returns on February 08, [...] and took Diflucan tablet. Rash has resolved. [id number] Tomy King MD [facility] [address] [place] [address] 05/16/2024 10:11:10 05/16/2024 10:33:39 Malignant tumor of ascending colon 383645824 C18.2 CT scan of the abdomen and [...] 8.2 hematocrit 29.0. MCV 67.9. Platelet count 374513. Normal cell differenti al. Low serum folate [...] 2024. No mediastina l or hilar lymphadeno espreanza. No suspicious lung nodules. Similar distributi on [...] 16, 2024. Metastatic malignant neoplasm to liver 77454378 C78.7 CT scan of the abdomen and [...] Findings concerning for metastatic colon cancer. Nausea 171322347 R11.0 As needed Zofran and Phenergan prescribed . Pain due t o neoplastic disease 4448948985 9102 G89.3 Right upper quadrant pain secondary to liver metastasis . Patient currently taking Tylenol. Discussed as needed oxycodone to limit Tylenol exposure. Anemia 173084074 D64.9 Right-side d colon mass concerning for malignancy . Will assess for any signs of iron deficiency . Most recent hemoglobin at 8.0. Concern for blood loss from colon mass. Patient reports dark stools. Adopted 155456803 Z62.89 8 Patient is adopted and discussed hereditary gene panel. Patient does have family history of her son having bladder cancer. Will send [facility] hereditary panel. Antineopla stic chemotherapy regimen 940988740 Z51.11 Week 1 5FU Leucovorin Vectibix on [...] on May 16, 2024. Vectibix resumed. Hypokalemia 36586159 E87 .6 Patient returns on April 29, 2023. Potassium is low at 2.9. Will send prescripti on for potassium 20 mEq daily. Will follow-up labs again next week. Deep venou s thrombosis 185257308 I82.409 Patient developed right lower extremity pain [...] duplex. Mixed anxi ety and depressive disorder 068825552 F41.8 Patient returns on November 23, 2023. [...] prescripti on for Cymbalta. Atopic conjunctivitis 23 6093181 H10.12 Patient with conjunctiv itis of the left eye. Held Vectibix on December 07, 2023. Continue with current therapy. Will follow up again in 2 weeks. Iron defic iency anemia 23029246 D50.9 Will follow up labs Insomnia 487203531 G47.0 0 Patient returns on February 08, 2024. She has had difficulty sleeping for most of her life. She has tried multiple medication s without relief. She is tried Mirtazapin e and lorazepam without improvemen t of insomnia. Discussed trying trazodone instead. Will send prescripti on. Will send prescripti on for Requip for restless legs. Restless legs 06283260 G 25.81 Patient returns on February 08, 2024. She has had difficulty sleeping for most of her life. She has tried multiple medication s without relief. She is tried Mirtazapin e and lorazepam without improvemen t of insomnia. Discussed trying trazodone instead. Prescripti on sent for Requip for restless legs. [id number] Hanna Snider PA-C [facility] [address] [facility] [address] [place] [address] 05/30/2024 09:21:34 05/30/2024 11:05:52 Malignant tumor of ascending colon 359805305 C18.2 CT scan of the abdomen and [...] 8.2 hematocrit 29.0. MCV 67.9. Platelet count 426201. Normal cell differenti al. Low serum folate [...] up labs. Metastatic malignant neoplasm to liver 31132966 C78.7 CT scan of the abdomen and [...] Findings concerning for metastatic colon cancer. Nausea 150886305 R11.0 As needed Zofran and Phenergan prescribed . Patient returns on May 30, 2024. Patient has had intermitte nt nausea that occurs randomly. Will try scopolamin e patches. Pain due t o neoplastic disease 6946930968 9102 G89.3 Right upper quadrant pain secondary to liver metastasis . Patient currently taking Tylenol. Discussed as needed oxycodone to limit Tylenol exposure. Anemia 822367239 D64.9 Right-side d colon mass concerning for malignancy . Will assess for any signs of iron deficiency . Most recent hemoglobin at 8.0. Concern for blood loss from colon mass. Patient reports dark stools. Adopted 554981399 Z62.89 8 Patient is adopted and discussed hereditary gene panel. Patient does have family history of her son having bladder cancer. Will send [facility] hereditary panel. Antineopla stic chemotherapy regimen 440826248 Z51.11 Week 1 5FU Leucovorin Vectibix on [...] 2024. Patient will receive Vectibix today. Hypokalemia 12748499 E87 .6 Patient returns on April 29, 2023. Potassium is low at 2.9. Will send prescripti on for potassium 20 mEq daily. Will follow-up labs again next week. Deep venou s thrombosis 429302346 I82.409 Patient developed right lower extremity pain [...] duplex. Mixed anxi ety and depressive disorder 631405492 F41.8 Patient returns on November 23, 2023. [...] prescripti on for Cymbalta. Atopic conjunctivitis 23 7133893 H10.12 Patient with conjunctiv itis of the left eye. Held Vectibix on December 07, 2023. Continue with current therapy. Will follow up again in 2 weeks. Iron defic iency anemia 81153425 D50.9 Will follow up labs Insomnia 799983452 G47.0 0 Patient returns on February 08, 2024. She has had difficulty sleeping for most of her life. She has tried multiple medication s without relief. She is tried Mirtazapin e and lorazepam without improvemen t of insomnia. Discussed trying trazodone instead. Will send prescripti on. Will send prescripti on for Requip for restless legs. Restless legs 02945002 G 25.81 Patient returns on February 08, [...] the area dry. Will follow-up. Generalized rash 8098049 06 R21 Patient returns on May 30, [...] to keep the area dry. Will follow-up. [id number] Hanna Snider PA-C [facility] [address] [place] [address] 06/27/2024 09:58:37 06/27/2024 10:53:58 Malignant tumor of ascending colon 272741378 C18.2 CT scan of the abdomen and [...] 8.2 hematocrit 29.0. MCV 67.9. Platelet count 921182. Normal cell differenti al. Low serum folate [...] up labs. Metastatic malignant neoplasm to liver 12936131 C78.7 CT scan of the abdomen and [...] Findings concerning for metastatic colon cancer. Nausea 678722556 R11.0 As needed Zofran and Phenergan prescribed . Discussed trying scopolamin e patches but her insurance wouldn't cover. Pain due t o neoplastic disease 3837271911 9102 G89.3 Right upper quadrant pain secondary to liver metastasis . Patient currently taking Tylenol. Discussed as needed oxycodone to limit Tylenol exposure. Anemia 491571938 D64.9 Right-side d colon mass concerning for malignancy . Will assess for any signs of iron deficiency . Most recent hemoglobin at 8.0. Concern for blood loss from colon mass. Patient reports dark stools. Adopted 194976474 Z62.89 8 Patient is adopted and discussed hereditary gene panel. Patient does have family history of her son having bladder cancer. Will send [facility] hereditary panel. Antineopla stic chemotherapy regimen 337662360 Z51.11 Week 1 5FU Leucovorin Vectibix on [...] Patient will receive not Vectibix today. Hypokalemia 63890022 E87 .6 Patient returns on April 29, 2023. Potassium is low at 2.9. Will send prescripti on for potassium 20 mEq daily. Will follow-up labs again next week. Deep venou s thrombosis 137603655 I82.409 Patient developed right lower extremity pain [...] duplex. Mixed anxi ety and depressive disorder [id number] F41.8 Patient returns on November 23, 2023. [...] prescripti on for Cymbalta. Atopic conjunctivitis 23 3303470 H10.12 Patient with conjunctiv itis of the left eye. Held Vectibix on December 07, 2023. Continue with current therapy. Will follow up again in 2 weeks. Iron defic iency anemia 19204643 D50.9 Will follow up labs Insomnia 301371310 G47.0 0 Patient returns on February 08, 2024. She has had difficulty sleeping for most of her life. She has tried multiple medication s without relief. She is tried Mirtazapin e and lorazepam without improvemen t of insomnia. Discussed trying trazodone instead. Will send prescripti on. Will send prescripti on for Requip for restless legs. Restless legs 06638670 G 25.81 Patient returns on February 08, [...] patient has not received Vectibix. Generalized rash 3586881 06 R21 Patient returns on May 30, [...] [facility]. Congestive heart failure 03531987 I50.9 Patient returns on June 27, 2024. Since previous visit patient has been diagnosed with congestive heart failure and atrial fibrillati on. She has started lasix and is following with a cardiologi . [id number] Hanna Snider PA-C [facility] [address] [place] [address] 07/11/2024 09:55:48 07/11/2024 10:53:23 Malignant tumor of ascending colon 306864546 C18.2 CT scan of the abdomen and [...] 8.2 hematocrit 29.0. MCV 67.9. Platelet count 749332. Normal cell differenti al. Low serum folate [...] up labs. Metastatic malignant neoplasm to liver 31846081 C78.7 CT scan of the abdomen and [...] Findings concerning for metastatic colon cancer. Nausea 461047098 R11.0 As needed Zofran and Phenergan prescribed . Discussed trying scopolamin e patches but her insurance wouldn't cover. She is taking Zofran with relief. Pain due t o neoplastic disease [id number] 9102 G89.3 She is taking hydrocodon e 7.5 mg b.i.d. Discussed taking medication every 4-6 hours as needed. Anemia 344920109 D64.9 Right-side d colon mass concerning for malignancy . Will assess for any signs of iron deficiency . Most recent hemoglobin at 8.0. Concern for blood loss from colon mass. Patient reports dark stools. Adopted 180224419 Z62.89 8 Patient is adopted and discussed hereditary gene panel. Patient does have family history of her son having bladder cancer. Will send [facility] hereditary panel. Antineopla stic chemotherapy regimen 399247884 Z51.11 Week 1 5FU Leucovorin Vectibix on [...] 2024. Patient will receive Vectibix today. Hypokalemia 65484472 E87 .6 Patient returns on April 29, 2023. Potassium is low at 2.9. Will send prescripti on for potassium 20 mEq daily. Will follow-up labs again next week. Deep venou s thrombosis 936435222 I82.409 Patient developed right lower extremity pain [...] duplex. Mixed anxi ety and depressive disorder 454233605 F41.8 Patient returns on November 23, 2023. [...] prescripti on for Cymbalta. Atopic conjunctivitis 23 2489662 H10.12 Patient with conjunctiv itis of the left eye. Held Vectibix on December 07, 2023. Continue with current therapy. Will follow up again in 2 weeks. Iron defic iency anemia 44971085 D50.9 Will follow up labs Insomnia 592955372 G47.0 0 Patient returns on February 08, 2024. She has had difficulty sleeping for most of her life. She has tried multiple medication s without relief. She is tried Mirtazapin e and lorazepam without improvemen t of insomnia. Discussed trying trazodone instead. Will send prescripti on. Will send prescripti on for Requip for restless legs. Restless legs 46465495 G 25.81 Patient returns on February 08, [...] patient has not received Vectibix. Generalized rash 0326353 06 R21 Patient returns on May 30, [...] [facility]. Congestive heart failure 42247397 I50.9 Patient returns on June 27, 2024. Since previous visit patient has been diagnosed with congestive heart failure and atrial fibrillati on. She has started lasix and is following with a cardiologi . [id number] Jana España MD [facility] [address] [facility] [address] [place] [address] 07/06/2024 10:53:43 07/08/2024 03:53:47 Seen by palliative care service [id number] Z51.5 Introduced services today. Dtr and son would be NOK - she feels important to start thinking about completion of LW/AD- I provided copies today and [facility] and will plan to f/u on this is two weeks. Encouraged her to think about HCS/code status. Still wants to continue chemo and has scans next week - did not discuss hospice, but eligible at any point Pain due t o neoplastic disease [id number] 9102 G89.3 Uncontroll ed, had lortab prescribed which manages pain well when she takes medication . Encouraged adherence. Mixed anxi ety and depressive disorder 003478868 F41.8 Uncontroll ed. Not taking cymbalta. Encouraged adherence and PRN ativan for breakthrou gh syptoms. Did not wish to pursue CBt at this time, will d/w Elsa for additional support options moving forward Nausea and vomiting 1692 1999 R11.2 Related to malignancy vs. Chemo. Improved with PRN and qAM zofran, likely related to chemo vs. malignancy Loss of appetite 1968216 6 R63.0 Related to malignancy . Not taking mirtazapin e. Does not want to add additional Rx at this itme or see nutritioni st. [id number] Hanna Snider PA-C [facility] [address] [place] [address] 07/25/2024 10:19:02 07/25/2024 10:39:35 Malignant tumor of ascending colon 058554097 C18.2 CT scan of the abdomen and [...] 8.2 hematocrit 29.0. MCV 67.9. Platelet count 222197. Normal cell differenti al. Low serum folate [...] Vectibix today. Metastatic malignant neoplasm to liver 06795041 C78.7 CT scan of the abdomen and [...] Findings concerning for metastatic colon cancer. Nausea 975461225 R11.0 As needed Zofran and Phenergan prescribed . Discussed trying scopolamin e patches but her insurance wouldn't cover. She is taking Zofran with relief. Pain due t o neoplastic disease 7076954663 9102 G89.3 She is taking hydrocodon e 7.5 mg b.i.d. Discussed taking medication every 4-6 hours as needed. Anemia 928690915 D64.9 Right-side d colon mass concerning for malignancy . Will assess for any signs of iron deficiency . Hemoglobin previously 8.0. Concern for blood loss from colon mass. Patient reports dark stools. labs on July 25, 2024 with improvemen t of hemoglobin 12.6. Patient is currently receiving infusional iron. Adopted 843956846 Z62.89 8 Patient is adopted and discussed hereditary gene panel. Patient does have family history of her son having bladder cancer. Will send [facility] hereditary panel. Antineopla stic chemotherapy regimen 256514662 Z51.11 Week 1 5FU Leucovorin Vectibix on [...] Patient will not receive Vectibix today. Hypokalemia 76911178 E87 .6 Patient returns on April 29, 2023. Potassium is low at 2.9. Will send prescripti on for potassium 20 mEq daily. Will follow-up labs again next week. Deep venou s thrombosis 268227142 I82.409 Patient developed right lower extremity pain [...] duplex. Mixed anxi ety and depressive disorder 609466110 F41.8 Patient returns on November 23, 2023. [...] reports depression has improved. Atopic conjunctivitis 23 8121703 H10.12 Patient with conjunctiv itis of the left eye. Held Vectibix on December 07, 2023. Continue with current therapy. Will follow up again in 2 weeks. Patient returns on July 25, 2024. She does have conjunctiv itis of the left eye. Will hold Vectibix today. Will follow up. Iron defic iency anemia 25884649 D50.9 Currently receiving infusional iron. Will continue to monitor. Insomnia 097895967 G47.0 0 Patient returns on February 08, 2024. She has had difficulty sleeping for most of her life. She has tried multiple medication s without relief. She is tried Mirtazapin e and lorazepam without improvemen t of insomnia. Discussed trying trazodone instead. Will send prescripti on. Will send prescripti on for Requip for restless legs. Restless legs 38585759 G 25.81 Patient returns on February 08, [...] with diflucan and nystain powder. Generalized rash 4045321 06 R21 Patient returns on May 30, [...] [facility]. Congestive heart failure 06989121 I50.9 Patient returns on June 27, 2024. Since previous visit patient has been diagnosed with congestive heart failure and atrial fibrillati on. She has started lasix and is following with a cardiologi . Cachexia 505562965 R64 Patient returns on July 25, 2024. Patient has had decreased appetite. Continues to lose weight. She has lost 4 more lbs since previous visit. She is drinking nutritiona l supplement s. Discussed appetite stimulant. Patient previously refused. Now she is agreeable to try Megace. Will send prescripti on. Will follow up for angela oakley [id number] Tomy King MD [facility] [address] [place] [address] 08/01/2024 11:10:37 08/01/2024 12:30:43 Malignant tumor of ascending colon 366365000 C18.2 CT scan of the abdomen and [...] 8.2 hematocrit 29.0. MCV 67.9. Platelet count 473302. Normal cell differenti al. Low serum folate [...] study published in September 2022 in the [place] [facility] of combined Avastin therapy with [...] Will follow-up Metastatic malignant neoplasm to liver 91820755 C78.7 CT scan of the abdomen and [...] Findings concerning for metastatic colon cancer. Nausea 515327024 R11.0 As needed Zofran and Phenergan prescribed . Discussed trying scopolamin e patches but her insurance wouldn't cover. She is taking Zofran with relief. Pain due t o neoplastic disease 0572888084 9102 G89.3 She is taking hydrocodon e 7.5 mg b.i.d. Discussed taking medication every 4-6 hours as needed. Anemia 089286043 D64.9 Right-side d colon mass concerning for malignancy . Will assess for any signs of iron deficiency . Hemoglobin previously 8.0. Concern for blood loss from colon mass. Patient reports dark stools. labs on July 25, 2024 with improvemen t of hemoglobin 12.6. Patient is currently receiving infusional iron. Adopted 895895830 Z62.89 8 Patient is adopted and discussed hereditary gene panel. Patient does have family history of her son having bladder cancer. Will send [facility] hereditary panel. Antineopla stic chemotherapy regimen 050244861 Z51.11 Week 1 5FU Leucovorin Vectibix on [...] 2024 due to disease progressio n. Hypokalemia 20435216 E87 .6 Patient returns on April 29, 2023. Potassium is low at 2.9. Will send prescripti on for potassium 20 mEq daily. Will follow-up labs again next week. Deep venou s thrombosis 797976851 I82.409 Patient developed right lower extremity pain [...] duplex. Mixed anxi ety and depressive disorder 119534311 F41.8 Patient returns on November 23, 2023. [...] reports depression has improved. Atopic conjunctivitis 23 5341952 H10.12 Patient with conjunctiv itis of the left eye. Held Vectibix on December 07, 2023. Continue with current therapy. Will follow up again in 2 weeks. Patient returns on July 25, 2024. She does have conjunctiv itis of the left eye. Will hold Vectibix today. Will follow up. Iron defic iency anemia 26009414 D50.9 Currently receiving infusional iron. Will continue to monitor. Insomnia 603833024 G47.0 0 Patient returns on February 08, 2024. She has had difficulty sleeping for most of her life. She has tried multiple medication s without relief. She is tried Mirtazapin e and lorazepam without improvemen t of insomnia. Discussed trying trazodone instead. Will send prescripti on. Will send prescripti on for Requip for restless legs. Restless legs 24196950 G 25.81 Patient returns on February 08, [...] with diflucan and nystain powder. Generalized rash 2906656 06 R21 Patient returns on May 30, [...] [facility]. Congestive heart failure 13260305 I50.9 Patient returns on June 27, 2024. Since previous visit patient has been diagnosed with congestive heart failure and atrial fibrillati on. She has started lasix and is following with a cardiologi st. Cachexia 857993511 R64 Patient returns on July 25, 2024. Patient has had decreased appetite. Continues to lose weight. She has lost 4 more lbs since previous visit. She is drinking nutritiona l supplement s. Discussed appetite stimulant. Patient previously refused. Now she is agreeable to try Megace. Will send prescripti on. Will follow up for angela oakley [id number] Hanna Snider PA-C [facility] [address] [place] [address] 08/10/2024 09:37:37 08/10/2024 10:29:37 Malignant tumor of ascending colon 577804462 C18.2 CT scan of the abdomen and [...] 8.2 hematocrit 29.0. MCV 67.9. Platelet count 654365. Normal cell differenti al. Low serum folate [...] study published in September 2022 in the [place] [facility] of combined Avastin therapy with [...] liver lesions. Metastatic malignant neoplasm to liver 56052861 C78.7 CT scan of the abdomen and [...] patient is a candidate for radiation Nausea 527048060 R11.0 As needed Zofran and Phenergan prescribed . Discussed trying scopolamin e patches but her insurance wouldn't cover. She is taking Zofran with relief. Pain due t o neoplastic disease 9479636103 9102 G89.3 She is taking hydrocodon e 7.5 mg b.i.d. Discussed taking medication every 4-6 hours as needed. Anemia 437609919 D64.9 Right-side d colon mass concerning for malignancy . Will assess for any signs of iron deficiency . Hemoglobin previously 8.0. Concern for blood loss from colon mass. Patient reports dark stools. Labs on August 10, 2024 with hemoglobin slightly low at 11.9. She is receiving infusional iron as needed. Adopted 856136749 Z62.89 8 Patient is adopted and discussed hereditary gene panel. Patient does have family history of her son having bladder cancer. [facility] hereditary panel sent Antineopla stic chemotherapy regimen 738799273 Z51.11 Week 1 5FU Leucovorin Vectibix on [...] monitor for tolerabili ty and toxicity. Hypokalemia 74609429 E87 .6 Currently taking for potassium 20 mEq daily. Will follow up labs. Mixed anxi ety and depressive disorder 847904171 F41.8 Patient returns on November 23, 2023. [...] reports depression has improved. Atopic conjunctivitis 23 9745518 H10.12 Conjunctiv itis due to Vectibix. This is improving. Iron defic iency anemia 66503495 D50.9 Currently receiving infusional iron as needed. Will continue to monitor. Insomnia 195656604 G47.0 0 Patient has had difficulty sleeping for most of her life. She has tried multiple medication s without relief. She is tried Mirtazapin e and lorazepam without improvemen t of insomnia. Discussed trying trazodone instead. Restless legs 73408498 G 25.81 Patient taking Requip for restless legs. Generalized rash 7714662 06 R21 Patient with rash due to Vectibix. This is improving. Atrial fibrillation 4943 6004 I48.91 Patient has been diagnosed with congestive heart failure and atrial fibrillati on. She has been started on Coumadin. She is following with the Coumadin clinic at [facility]. Congestive heart failure 43045968 I50.9 Patient has been diagnosed with congestive heart failure. She has started lasix and is following with a cardiologi st. Cachexia 475593195 R64 Patient has had decreased appetite and weight loss. She is drinking nutritiona l supplement s. Discussed appetite stimulant. Patient previously refused. She has started on Megace. Will continue to monitor History of deep vein thrombosis 748577421 Z86.718 Patient developed right lower extremity pain [...] repeat venous duplex. Drug therapy finding 309 029351 Z79.01 She continues on Coumadin due to a fib. She is following with the Coumadin clinic at [facility]. [id number] Hanna Snider PA-C [facility] [address] [facility] [address] [place] [address] 08/25/2024 09:02:23 08/25/2024 09:51:52 Antineoplastic chemotherapy regimen 488734917 Z51.11 Week 1 5FU Leucovorin Vectibix on [...] and toxicity. Malignant tumor of ascending colon 823118997 C18.2 CT scan of the abdomen and [...] 8.2 hematocrit 29.0. MCV 67.9. Platelet count 898776. Normal cell differenti al. Low serum folate [...] study published in September 2022 in the [place] [facility] of combined Avastin therapy with [...] liver lesions. Metastatic malignant neoplasm to liver 25805881 C78.7 CT scan of the abdomen and [...] patient is a candidate for radiation Nausea 979821608 R11.0 As needed Zofran and Phenergan prescribed . Discussed trying scopolamin e patches but her insurance wouldn't cover. She is taking Zofran with relief. Pain due t o neoplastic disease 5575299004 9102 G89.3 She is taking hydrocodon e [...] does take her current medication s Anemia 859040754 D64.9 Right-side d colon mass concerning for malignancy . Will assess for any signs of iron deficiency . Hemoglobin previously 8.0. Concern for blood loss from colon mass. Patient reports dark stools. Labs on August 10, 2024 with hemoglobin slightly low at 11.9. She is receiving infusional iron as needed. Adopted 319150540 Z62.89 8 Patient is adopted and discussed hereditary gene panel. Patient does have family history of her son having bladder cancer. [facility] hereditary panel sent Hypokalemia 98739414 E87 .6 Currently taking for potassium 20 mEq daily. Will follow up labs. Mixed anxi ety and depressive disorder 407250773 F41.8 Patient returns on November 23, 2023. [...] reports depression has improved. Atopic conjunctivitis 23 7252750 H10.12 Conjunctiv itis due to Vectibix. This is improving. Iron defic iency anemia 80252549 D50.9 Receiving infusional iron as needed. Will continue to monitor. Insomnia 669764029 G47.0 0 Patient has had difficulty sleeping for most of her life. She has tried multiple medication s without relief. She is tried Mirtazapin e and lorazepam without improvemen t of insomnia. Discussed trying trazodone instead. Restless legs 44115315 G 25.81 Patient taking Requip for restless legs. Generalized rash 6391228 06 R21 Rash due to Vectibix. This has improved. Atrial fibrillation 4943 6004 I48.91 Patient has been diagnosed with congestive heart failure and atrial fibrillati on. She has been started on Coumadin. She is following with the Coumadin clinic at [facility]. Congestive heart failure 78012998 I50.9 Patient has been diagnosed with congestive heart failure. She has started lasix and is following with a cardiologi st. Cachexia 663451464 R64 Patient has had decreased appetite and weight loss. She is drinking nutritiona l supplement s. Discussed appetite stimulant. Patient previously refused. She has started on Megace. She does not like the taste of Megace. Discussed Megace tablets instead of liquid but patient declines at this time. Will continue to monitor History of deep vein thrombosis 771143683 Z86.718 Patient developed right lower extremity pain [...] repeat venous duplex. Drug therapy finding 309 077343 Z79.01 She continues on Coumadin due to a fib. She is following with the Coumadin clinic at [facility]. Acute post traumatic headache 8436150498 68726 G44.319 Patient returns on August 25, 2024. [...] Internatio nal normalized ratio above reference range 047863760 R79.1 Patient returns on August 25, 2024. She is on Coumadin for atrial fibrillati on and her INR is elevated. She is going to the [facility]madin Clinic for management . INR 8 today. She is going to hold Coumadin and contact [facility] Clinic for directions today. Denies any bleeding at this time. [id number] Hanna Snider PA-C [facility] [address] [place] [address] 09/02/2024 11:29:36 09/02/2024 12:07:33 Antineoplastic chemotherapy regimen 513993095 Z51.11 Week 1 5FU Leucovorin Vectibix on [...] follow up. Malignant tumor of ascending colon 466801479 C18.2 CT scan of the abdomen and [...] 8.2 hematocrit 29.0. MCV 67.9. Platelet count 857081. Normal cell differenti al. Low serum folate [...] study published in September 2022 in the [place] [facility] of combined Avastin therapy with [...] liver lesions. Metastatic malignant neoplasm to liver 37844708 C78.7 CT scan of the abdomen and [...] patient is a candidate for radiation Nausea 743734716 R11.0 As needed Zofran and Phenergan prescribed [...] ons. Pain due t o neoplastic disease 6934914885 9102 G89.3 She is taking hydrocodon e [...] tab po every 3-4 hours instead. Anemia 043900798 D64.9 Right-side d colon mass concerning for malignancy . Will assess for any signs of iron deficiency . Hemoglobin previously 8.0. Concern for blood loss from colon mass. Patient reports dark stools. Labs on August 10, 2024 with hemoglobin slightly low at 11.9. She is receiving infusional iron as needed. Adopted 077647894 Z62.89 8 Patient is adopted and discussed hereditary gene panel. Patient does have family history of her son having bladder cancer. [facility] hereditary panel sent Hypokalemia 15302720 E87 .6 Currently taking for potassium 20 mEq daily. Will follow up labs. Mixed anxi ety and depressive disorder 019859769 F41.8 Patient returns on November 23, 2023. [...] reports depression has improved. Atopic conjunctivitis 23 4223441 H10.12 Conjunctiv itis due to Vectibix. This is improving. Iron defic iency anemia 23453945 D50.9 Receiving infusional iron as needed. Will continue to monitor. Insomnia 585683244 G47.0 0 Patient has had difficulty sleeping for most of her life. She has tried multiple medication s without relief. She is tried Mirtazapin e and lorazepam without improvemen t of insomnia. Discussed trying trazodone instead. Restless legs 97650077 G 25.81 Patient taking Requip for restless legs. Generalized rash 4275822 06 R21 Rash due to Vectibix. This has improved. Atrial fibrillation 4943 6004 I48.91 Patient has been diagnosed with congestive heart failure and atrial fibrillati on. She has been started on Coumadin. She is following with the Coumadin clinic at [facility]. Congestive heart failure 58806526 I50.9 Patient has been diagnosed with congestive heart failure. She has started lasix and is following with a cardiologi st. Cachexia 544883161 R64 Patient has had decreased appetite and weight loss. She is drinking nutritiona l supplement s. Discussed appetite stimulant. Patient previously refused. She has started on Megace. She does not like the taste of Megace. Discussed Megace tablets instead of liquid but patient declines at this time. Will continue to monitor History of deep vein thrombosis 939839942 Z86.718 Patient developed right lower extremity pain [...] repeat venous duplex. Drug therapy finding 309 006979 Z79.01 She continues on Coumadin due to a fib. She is following with the Coumadin clinic at [facility]. Internatio nal normalized ratio above reference range 125115058 R79.1 Patient returns on August 25, 2024. She is on Coumadin for atrial fibrillati on and her INR is elevated. She is going to the Coumadin Clinic for management . INR 8 today. She is going to hold Coumadin and contact [facility]madin Clinic for directions today. Denies any bleeding at this time. Diarrhea 75613915 R19.7 Patient with increased diarrhea, nausea, and vomiting for the past 4 days. She is taking Imodium and Lomotil without relief. She has a history of C diff. Will order stool studies today. Will check stool for C diff today. Dehydration 14639237 E86 .0 Patient returns on September 02, 2024. Patient with increased diarrhea, nausea, and vomiting for the past 4 days. No fever or chills. IV fluids along with Pepcid and Zofran today for dehydratio n. [id number] Hanna Snider PA-C [facility] [address] [place] [address] 11/01/2024 13:00:10 11/01/2024 13:35:08 Antineoplastic chemotherapy regimen 472340081 Z51.11 Week 1 5FU Leucovorin Vectibix on [...] 25, 2024. Malignant tumor of ascending colon 058880297 C18.2 CT scan of the abdomen and [...] 8.2 hematocrit 29.0. MCV 67.9. Platelet count 379747. Normal cell differenti al. Low serum folate [...] study published in September 2022 in the [place] [facility] of combined Avastin therapy with [...] malignancy . Metastatic malignant neoplasm to liver 90215010 C78.7 CT scan of the abdomen and [...] any treatment for her malignancy . Nausea [id number] R11.0 As needed Zofran and Phenergan prescribed [...] ons. Pain due t o neoplastic disease [id number] 9102 G89.3 Abdominal pain has improved and pain is controlled with current pain medication s. Anemia 278081461 D64.9 Right-side d colon mass concerning for malignancy . Will assess for any signs of iron deficiency . Hemoglobin previously 8.0. Concern for blood loss from colon mass. Patient reports dark stools. Labs on August 10, 2024 with hemoglobin slightly low at 11.9. She is receiving infusional iron as needed. Adopted [id number] Z62.89 8 Patient is adopted and discussed hereditary gene panel. Patient does have family history of her son having bladder cancer. [facility] hereditary panel sent Hypokalemia 68413796 E87 .6 Currently taking for potassium 20 mEq daily. Will follow up labs. Mixed anxi ety and depressive disorder 564883081 F41.8 Patient returns on November 23, 2023. [...] reports depression has improved. Atopic conjunctivitis 23 7332246 H10.12 Conjunctiv itis due to Vectibix. This has improved. Iron defic iency anemia 07219284 D50.9 Receiving infusional iron as needed. Will continue to monitor. Insomnia 295547094 G47.0 0 Patient has had difficulty sleeping for most of her life. She has tried multiple medication s without relief. She is tried Mirtazapin e and lorazepam without improvemen t of insomnia. Discussed trying trazodone instead. Restless legs 85861658 G 25.81 Patient taking Requip for restless legs. Generalized rash 0355468 06 R21 Rash due to Vectibix. This has improved. Atrial fibrillation 4943 6004 I48.91 Patient has been diagnosed with congestive heart failure and atrial fibrillati on. She has been started on Coumadin. She is following with the Coumadin clinic at [facility]. Congestive heart failure 44206359 I50.9 Patient has been diagnosed with congestive heart failure. She has started lasix and is following with a cardiologi st. Cachexia 650664391 R64 Patient has had decreased appetite and weight loss. She is drinking nutritiona l supplement s. Discussed appetite stimulant. Patient previously refused. She has started on Megace. She does not like the taste of Megace. Discussed Megace tablets instead of liquid but patient declines at this time. Will continue to monitor History of deep vein thrombosis 639868400 Z86.718 Patient developed right lower extremity pain [...] repeat venous duplex. Drug therapy finding 309 687489 Z79.01 She continues on Coumadin due to a fib. She is following with the Coumadin clinic at [facility]. Candidiasis of skin 4988 3006 B37.2 Patient has intermitte nt rash consistent with candidiasi s under her breasts folds. Will send prescripti on for nystain powder to use as needed. [id number] Hanna Snider PA-C [facility] [address] [facility] [address] [place] [address] 11/30/2024 10:57:07 11/30/2024 11:54:59 Antineoplastic chemotherapy regimen 251950543 Z51.11 Week 1 5FU Leucovorin Vectibix on [...] 25, 2024. Malignant tumor of ascending colon 795450142 C18.2 CT scan of the abdomen and [...] 8.2 hematocrit 29.0. MCV 67.9. Platelet count 555225. Normal cell differenti al. Low serum folate [...] study published in September 2022 in the [place] [facility] of combined Avastin therapy with [...] malignancy . Metastatic malignant neoplasm to liver 33991852 C78.7 CT scan of the abdomen and [...] any treatment for her malignancy . Nausea 304266382 R11.0 As needed Zofran and Phenergan prescribed . Discussed trying scopolamin e patches but her insurance wouldn't cover. Discussed starting Ativan and Reglan is needed for nausea and vomiting. Pain due t o neoplastic disease 6325698341 9102 G89.3 Abdominal pain has improved and pain is controlled with current pain medication s. Anemia 536315972 D64.9 Right-side d colon mass concerning for malignancy . Will assess for any signs of iron deficiency . Hemoglobin previously 8.0. Concern for blood loss from colon mass. Patient reports dark stools. Labs on August 10, 2024 with hemoglobin slightly low at 11.9. She is receiving infusional iron as needed. Adopted 690395610 Z62.89 8 Patient is adopted and discussed hereditary gene panel. Patient does have family history of her son having bladder cancer. [facility] hereditary panel sent Hypokalemia 89487555 E87 .6 Currently taking for potassium 20 mEq daily. Will follow up labs. Mixed anxi ety and depressive disorder 186056012 F41.8 Patient returns on November 23, 2023. [...] reports depression has improved. Atopic conjunctivitis 23 0369311 H10.12 Conjunctiv itis due to Vectibix. This has improved. Iron defic iency anemia 88966045 D50.9 Receiving infusional iron as needed. Will continue to monitor. Insomnia 697797324 G47.0 0 Patient has had difficulty sleeping for most of her life. She has tried multiple medication s without relief. She is tried Mirtazapin e and lorazepam without improvemen t of insomnia. Discussed trying trazodone instead. Restless legs 31795354 G 25.81 Patient taking Requip for restless legs. Generalized rash 2930686 06 R21 Rash due to Vectibix. This has improved. Atrial fibrillation 4943 6004 I48.91 Patient has been diagnosed with congestive heart failure and atrial fibrillati on. She has been started on Coumadin. She is following with the Coumadin clinic at [facility]. Congestive heart failure 43100023 I50.9 Patient has been diagnosed with congestive heart failure. She has started lasix and is following with a cardiologi st. Cachexia 033404530 R64 Patient has had decreased appetite and weight loss. She is drinking nutritiona l supplement s. Discussed appetite stimulant. Patient previously refused. She has started on Megace. She does not like the taste of Megace. Discussed Megace tablets instead of liquid but patient declines at this time. Will continue to monitor History of deep vein thrombosis 209460373 Z86.718 Patient developed right lower extremity pain [...] repeat venous duplex. Drug therapy finding 309 783209 Z79.01 She continues on Coumadin due to a fib. She is following with the Coumadin clinic at [facility]. Candidiasis of skin 4988 3006 B37.2 Patient has intermitte nt rash consistent with candidiasi s under her breasts folds. She has nystain powder to use as needed. Dehydration 01949419 E86 .0 Patient returns on November 30, 2024. Patient feels dehydrated today. She did not drink much water yesterday. Her appetite is fair and weight is stable. Will give 1 L IV fluids today. [id number] Hanna Snider PA-C [facility] [address] [facility] [address] [place] [address] 12/21/2024 10:57:49 12/21/2024 12:59:49 Antineoplastic chemotherapy regimen 066876895 Z51.11 Week 1 5FU Leucovorin Vectibix on [...] 25, 2024. Malignant tumor of ascending colon 703813248 C18.2 CT scan of the abdomen and [...] 8.2 hematocrit 29.0. MCV 67.9. Platelet count 643320. Normal cell differenti al. Low serum folate [...] study published in September 2022 in the [place] [facility] of combined Avastin therapy with [...] this time. Metastatic malignant neoplasm to liver 77600395 C78.7 CT scan of the abdomen and [...] any treatment for her malignancy . Nausea 254866903 R11.0 As needed Zofran and Phenergan prescribed . Discussed trying scopolamin e patches but her insurance wouldn't cover. Discussed starting Ativan and Reglan is needed for nausea and vomiting. Pain due t o neoplastic disease 3984330412 9102 G89.3 Abdominal pain has improved and pain is controlled with current pain medication s. Anemia 168716063 D64.9 Right-side d colon mass concerning for malignancy . Will assess for any signs of iron deficiency . Hemoglobin previously 8.0. Concern for blood loss from colon mass. Patient reports dark stools. Labs on August 10, 2024 with hemoglobin slightly low at 11.9. She is receiving infusional iron as needed. Adopted 144478560 Z62.89 8 Patient is adopted and discussed hereditary gene panel. Patient does have family history of her son having bladder cancer. [facility] hereditary panel sent Hypokalemia 56925114 E87 .6 Currently taking for potassium 20 mEq daily. Will follow up labs. Mixed anxi ety and depressive disorder 848459153 F41.8 Patient returns on November 23, 2023. [...] reports depression has improved. Atopic conjunctivitis 23 1710540 H10.12 Conjunctiv itis due to Vectibix. This has improved. Iron defic iency anemia 16539071 D50.9 Receiving infusional iron as needed. Will continue to monitor. Insomnia 166302196 G47.0 0 Patient has had difficulty sleeping for most of her life. She has tried multiple medication s without relief. She is tried Mirtazapin e and lorazepam without improvemen t of insomnia. Discussed trying trazodone instead. Restless legs 20056354 G 25.81 Patient taking Requip for restless legs. Generalized rash 3087069 06 R21 Rash due to Vectibix. This has improved. Atrial fibrillation 4093 6004 I48.91 Patient has been diagnosed with congestive heart failure and atrial fibrillati on. She has been started on Coumadin. She is following with the Coumadin clinic at [facility]. Congestive heart failure 01273190 I50.9 Patient has been diagnosed with congestive heart failure. She has started lasix and is following with a cardiologi st. Cachexia 719880453 R64 Patient has had decreased appetite and weight loss. She is drinking nutritiona l supplement s. Discussed appetite stimulant. Patient previously refused. She has started on Megace. She does not like the taste of Megace. Discussed Megace tablets instead of liquid but patient declines at this time. Will continue to monitor History of deep vein thrombosis 921194572 Z86.898 Patient developed right lower extremity pain and edema.Veno us duplex on May 28, 2023 with evidence of deep vein thrombosis . Started on Eliquis 5 mg 1 tab p.o. b.i.d.. Did not start with Eliquis starter pack due to recent bleeding. Patient had a DVT and a PE in 1990 after her hysterecto my.Clot resolution on repeat venous duplex. Drug therapy finding 309 162826 Z79.01 She continues on Coumadin due to a fib. She is following with the Coumadin clinic at [facility]. Candidiasis of skin 4988 3006 B37.2 Patient has intermitte nt rash consistent with candidiasi s under her breasts folds. She has nystain powder to use as needed. Dehydration 53231581 E86 .0 Patient returns on December 21, [...] Guarantor Name 06/02/2023 [place] Vicky Roblero [id number] Vicky Frank [employer] 06/02/2023 1 [employer] (MEDICARE SUPPLEMENT) Vicky Roblero [id number] Vicky Marie [place] 11/26/2024 2 [employer] Vicky Roblero [id number] Vicky Frank [employer] 06/02/2023 1 MEDICARE [place]: [place] Vicky Roblero [id number] Vicky Roblero 06/02/2023 2 [employer] (MEDICARE SUPPLEMENT) Vicky Frank Roblero [id number] Vicky Frank [employer] 11/29/2024 1 [place] Vicky Laura Roblero [id number] Vicky Frank [employer] OBGyn Episode No OBEpisode recorded.
--- OUTSIDE RECORDS SUMMARY | 2024-12-27 17:51 | XMS_ITS | Encounter Summary ---
Author Organization [place] [address] Care Team Providers Care Emergency Detail Driver Name Role Phone Luis Villasenor MD Unavailable [phone] Luis Villasenor MD Primary Care Provider Reason for Visit * Reason Onset Date Comments Orders 11/25/2024 Encounter Details Date Type Department Care Team (Late Contact Info) Description 11/25/2024 Telephone SEP Sarah [address] [place] [address] Amarilis Nolan, [employer] [address] [place] [address] Orders Social History Tobacco Use Types [...] as of this encounter Care Teams Emergency Detail Driver Relationship Specialty Start Date End Date Luis Villasenor MD [address] [place] [id number] PCP - OBGYN 01/09/10 Luis Villasenor MD [address] [place] [id number] PCP - General 01/09/10 documented as of this encounter
--- OUTSIDE RECORDS SUMMARY | 2024-12-27 17:51 | XMS_ITS | Encounter Summary ---
Author Organization [place] [address] Care Team Providers Care Dean Of Student Services Name Role Phone Luis Villasenor MD Unavailable [phone] Luis Villasenor MD Primary Care Provider Encounter Details Date Type Department Care Team (Late st Contact Info) Description 09/26/2010 Orders Only SEP [facility] [address] [place] [address] Jennifer Nagel MD [address] [place] [address] Social History Tobacco Use Types Packs/Day Years [...] a practice prior to that practice using [facility] for Medical Records. Performing Provider: JENNIFER NAGEL Jennifer Nagel MD IMG ECHO ORDERABLES Final Result documented in this encounter Visit Diagnoses Not on filedocumented in this encounter Care Teams Dean Of Student Services Relationship Specialty Start Date End Date Luis Villasenor MD [address] [place] [address] PCP - OBGYN 01/09/10 Luis Villasenor MD [address] [place] [address] PCP - General 01/09/10 documented as of this encounter
[2024-12-27 17:54] LABS: VBG HCO3 12.0 mmol/L (23-30); VBG PCO2 29.4 mmol/L (35-51); VBG PH 7.23 mmol/L (7.31-7.41); VBG PO2 81.6 mmol/L (28-40)
[2024-12-27 17:56] LABS: Lactate Venous 12.2 mmol/L (0.4-2.0)
--- NOTE | 2024-12-27 17:56 | PC.NURSE ---
CRITICAL VBG RESULTS REPORTED TO DR MILES, NO NEW ORDERS
[2024-12-27 17:57] LABS: Hematocrit 33.3 % (37.0-47.0); Hemoglobin 9.8 g/dL (12.2-16.2); Immature Granulocytes % 0.8 %; Mean Corpuscular HGB Conc 29.4 g/dL (31.8-35.4); Mean Corpuscular Hemoglobin 25.9 pg (27.0-31.2); Mean Corpuscular Volume 87.9 fl (81-99); Nucleated Red Blood Cells % 0 %; Platelet Count 472 K/mm3 (142-424); Red Blood Count 3.79 M/mm3 (4.20-5.40); Red Cell Distribution Width-SD 57.1 fL; White Blood Count 8.5 K/mm3 (4.8-10.8)
[2024-12-27 18:12] LABS: Albumin Level 2.9 g/dl (3.5-5.0); Albumin/Globulin Ratio 0.9 (1.1-1.8); Alkaline Phosphatase 631 U/L (38-126); Anion Gap 24.3 mEq/L (5-15); Bilirubin,Total 1.8 mg/dl (0.2-1.3); Blood Urea Nitrogen 29 mg/dl (7-17); Calcium 9.5 mg/dl (8.4-10.2); Carbon Dioxide 13 mmol/L (22.0-30.0); Chloride 100 mmol/L (98-107); Creatinine,Serum 2.40 mg/dl (0.52-1.04); Estimated Glomerular Filt Rate 20 ml/min (>60); GFR (African American) 24 ML/MIN (>60); Globulin 3.2 g/dL (1.3-3.2); Glucose 159 mg/dl (74-100); Lipase 18 U/L (23-300); Potassium 4.3 mmoL/L (3.5-5.1); Sodium 133 mmol/L (136-145); Total Protein,Serum 6.1 g/dl (6.3-8.2)
[2024-12-27 18:17] LABS: Creatinine Clearance Estimated 28 mL/min (50-200)
--- NOTE | 2024-12-27 18:17 | PC.NURSE ---
1737 PORT ACCESSED TO RIGHT CHEST AT 1737 1739 BLOOD GLUCOSE 146
--- NOTE | 2024-12-27 18:18 | PC.NURSE ---
DR MILES SPEAKING WITH HOSPITALIST FOR ADMISSION
[2024-12-27 18:19] LABS: Alanine Aminotransferase 33 U/L (12-78); Aspartate Amino Transferase 85 U/L (14-36)
--- NOTE | 2024-12-27 18:21 | PC.NURSE ---
PT ACCEPTED BY HOSPITALIST EMPLOYMENT SERVICE SPECIALIST NOTIFIED
[2024-12-27 18:24] LABS: Troponin I 0.03 ng/ml (0.00-0.034)
--- NOTE | 2024-12-27 18:51 | EXP.HP ---
History of Present Illness *Admission Date: 12/27/24 *Reason for visit:: Obtunded, acute decline today. Stage IV terminal colon cancer *History of present illness: Ms. Roblero is a 79-year-old female with history of stage IV colon cancer, history of DVTs and PEs, chronic anticoagulation, progressing renal failure, no longer pursuing treatment with last chemo in July. She was recently admitted 2 weeks ago for ANMOL and supratherapeutic INR. Has been at home where today she had an abrupt change in mentation. Was brought to the ER for evaluation. Has been stating to family that she wants to at home and understands her condition is terminal. On evaluation, found to be in severe sepsis with metabolic acidosis and potential left lower lobe pneumonia on chest x-ray with acute hypoxemic respiratory failure. Discussions with family led to decision to not pursue aggressive measures. Medicine consulted for admission and further management. Pleasant discussion with daughter at bedside. She has had many discussions with her mom over the past several weeks. States her mom has good understanding that her condition is terminal. Has not wanted to pursue treatment. Was wanting to be comfortable and passed at home unfortunately given her condition today, the daughter feels that she cannot manage her at home. Requesting that we keep her comfortable here and focus on comfort care and not administer life-prolonging treatments. Discussed treatment such as antibiotics and fluids would only prolong life and not change her ultimate outcome. We will hold on these medications at this time after consultation with family [facility] Disclaimer: The information contained in this section may have been updated after the patient was seen, as this information can be updated by other users. Medical History Hx of deep venous thrombosis Hx pulmonary embolism Interatrial cardiac shunt PAF (paroxysmal atrial fibrillation) Palpitations Colon cancer metastasized to liver Social History Smoking Status: Never smoker alcohol intake: never current occupational status: other Travel in the last 8 weeks?: None Have you lived/traveled outside US in past 30 days?: No Contact w/someone who lives/traveled outside US past 30 days?: No Exposure to someone with infectious disease in past 14 days?: No Do you have a fever (greater than 100.4 F or 38 C)?: No Have you tested positive for COVID-19?: No Exposed to someone with COVID-19 in past 14 days?: No Do you have a sore throat?: No Do you have a cough?: No Do you have any weakness?: No Do you have any diarrhea?: No Are you experiencing any unusual bleeding?: No Do you have any muscle aches/pain?: No Do you have any abdominal pain?: No Are you experiencing loss of taste or smell?: No Other Medical History Have you received the Flu Vaccine for this season: No Have you received the Pneumonia Vaccine: No Review of Systems Review of Systems Review of systems:: unable to obtain Review of systems (narrative): Patient obtunded Meds Home Medications and Allergies Home Medications ?Medication ?Instructions ?Recorded ?Confirmed ?Type potassium chloride 20 mEq 20 meq PO DAILY 07/14/24 12/12/24 History tablet,extended release nystatin 100,000 unit/gram topical 1 applic topical BIDP PRN Rash 09/20/24 12/12/24 History powder (Nystop) hydrocodone 10 mg-acetaminophen 1 - 2 tab PO Q4HP PRN Moderate 12/12/24 12/12/24 History 325 mg tablet Pain (Scale Score 5-6) ondansetron 8 mg disintegrating 8 mg PO TIDP PRN Nausea And 12/12/24 12/12/24 History tablet Vomiting spironolactone 25 mg tablet 25 mg PO DAILY 12/12/24 12/12/24 History warfarin 2 mg tablet (Jantoven) 2 mg PO DAILY 12/12/24 12/12/24 History Held on 12/13/24. Instructions: Follow-up with Coumadin clinic. cefdinir 300 mg capsule 300 mg PO Q12H #12 caps 12/13/24 Rx New Prescriptions to Start Prescriptions: Allergies Allergy/AdvReac Type Severity Reaction Status Date / Time tetracycline Allergy Rash Verified 09/19/24 14:19 Exam Data for Last 24 hours Vital signs and Labs for Last 24 Hours: Temp Pulse Resp BP Pulse Ox O2 Del Method 96.5 F L 107 H 14 96/58 L 79 L Room Air 12/27/24 17:17 12/27/24 17:17 12/27/24 17:17 12/27/24 17:17 12/27/24 17:17 12/27/24 17:17 Laboratory Results - last 24 hr 12/27/24 17:40: WBC 8.5, RBC 3.79 L, Hgb 9.8 L, Hct 33.3 L, MCV 87.9, MCH 25.9 L, MCHC 29.4 L, RDW 18.0 H, Plt Count 472 H, MPV 9.9, Neut % (Auto) 86.5 H, Lymph % (Auto) 9.6 L, [place] % (Auto) 2.9, Eos % (Auto) 0.0 L, Baso % (Auto) 0.2, Neut # (Auto) 7.4, Lymph # (Auto) 0.8, [place] # (Auto) 0.3, Eos # (Auto) 0.0, Baso # (Auto) 0.0, VBG pH 7.23 L, VBG pCO2 29.4 L, VBG pO2 81.6 H, VBG HCO3 12.0 L, VBG Total CO2 12.9 L, VBG O2 Saturation 93.3 H, VBG Base Excess -14.2 L, VBG Lactic Acid 12.2 H, Sodium 133 L, Potassium 4.3, Chloride 100, Carbon Dioxide 13 L, Anion Gap 24.3 H, BUN 29 H, Creatinine 2.40 H, Estimated Creat Clear 28, Estimated GFR 20 L, Est GFR ( Amer) 24 L, Glucose 159 H, Calcium 9.5, Total Bilirubin 1.8 H, AST 85 H, ALT 33, Alkaline Phosphatase 631 H, Troponin I 0.03, Total Protein 6.1 L, Albumin 2.9 L, Globulin 3.2, Albumin/Globulin Ratio 0.9 L, Lipase 18 L I & O for Last 24 hours: Intake & Output 12/24/24 12/25/24 12/26/24 12/27/24 23:59 23:59 23:59 23:59 Weight 90.718 kg Constitutional Constitutional: moderate distress, obese, chronically ill appearing and obtunded *Routine HEENT Exam Head: Present normocephalic Eye: Present other ENT: Present mucous membranes dry Comments: Hemangioma of tongue *Routine Neck Exam Neck: Present supple; Absent lymphadenopathy *Routine Respiratory Exam Respiratory: Present accessory muscle use; Absent rhonchi, wheezes, crackles or normal respiratory effort Comments: Tachypnea *Routine Cardiovascular Exam Cardiovascular: Present RRR, Normal S1 and Normal S2 *Routine Abdominal Exam Abdominal: Present soft, tenderness (Nonfocal) and distended; Absent normoactive bowel sounds (Hypoactive) *Routine Rectal Exam Rectal:: deferred *Routine Genitalia Exam Genitalia:: deferred *Routine Extremities Exam Extremities: Present edema; Absent cyanosis or clubbing *Routine Skin Exam Skin: Present intact and warm; Absent rash Comments: Pressure spot on coccyx *Routine Neurological Exam Neurological: Present altered mental status; Absent moving all extremities Assessment and Plan *Assessment and plan (1) Metabolic acidosis: Status: Acute Category: Medical Code(s): E87.20 - Acidosis, unspecified (2) Acute hypoxemic respiratory failure: Status: Acute Category: Medical Code(s): J96.01 - Acute respiratory failure with hypoxia (3) Sepsis: Status: Acute Category: Medical Code(s): A41.9 - Sepsis, unspecified organism (4) Left lower lobe pneumonia: Status: Acute Category: Medical Code(s): J18.9 - Pneumonia, unspecified organism (5) ANMOL (acute kidney injury): Status: Acute Category: Medical Code(s): N17.9 - Acute kidney failure, unspecified (6) Hyponatremia: Status: Acute Category: Medical Code(s): E87.1 - Hypo-osmolality and hyponatremia (7) Colon cancer metastasized to liver: Status: Acute Category: Medical Code(s): C18.9 - Malignant neoplasm of colon, unspecified; C78.7 - Secondary malignant neoplasm of liver and intrahepatic bile duct Plan Ms. Roblero is a 79-year-old female with a significant medical history of metastatic colon cancer with mets to the liver diagnosed 2 years ago. Stopped chemotherapy as of July. Has been at home and not wanting to pursue hospice. Wanted to at home per family. Had an abrupt change in mentation and alertness today at home leading to calling EMS for evaluation. On arrival to the ER, patient appears in severe sepsis with acute hypoxemic respiratory failure and is frankly obtunded with a GCS of 3. After discussion with family at bedside, they do not want to pursue life-prolonging or aggressive measures. They want to focus on keeping her comfortable as they understand her condition is terminal. Discussed case with ER physician, request admission for comfort care as patient's is imminent. I decided to admit for further care and management. Review of her workup in the ER shows normal white count of 8.5, neutrophil predominance of 86%. She is meeting severe sepsis criteria with organ dysfunction, tachycardia of 107, tachypnea of 33 on my evaluation. Hypothermic at 96.5 and hypoxic at 79 on arrival to the ER. Blood pressure soft at 96/58. Patient nonresponsive on exam. Concern for left lower lobe pneumonia. In light of family's preference (daughter who is at bedside) she does not want to proceed with life-prolonging or aggressive measures. Will not proceed with antibiotics or fluids at this time. Patient's condition appears terminal. We will focus on comfort. Problems addressed as follows: #Metastatic colon cancer # Severe sepsis # Left lower lobe pneumonia # Acute hypoxemic respiratory failure #ANMOL ?Initiate morphine 4 mg every hour as needed for pain or air hunger, reports taking hydrocodone 5 to 10 mg as needed every 4 hours at home - Tylenol 1000 mg IV as needed for mild to moderate pain or fever - White count 8.5, hemoglobin 9.8. Kidney function abnormal with BUN 29, creatinine 2.4. Patient has metabolic acidosis with lactate of 12.2, pH of 7.23 on VBG with pCO2 of 29. Bicarb of 13. Anion gap 24 ? We will not administer IV fluids or IV antibiotics -In line with goals of care, no labs ordered for the morning -Per my review of chest x-ray has left lower lobe consolidation/air space disease -Continue supplemental oxygen with nonrebreather for comfort #Supratherapeutic INR ?Patient is on warfarin therapy for a history of A-fib and multiple blood clots PE's/DVT's. INR was 8 earlier this month 2 weeks ago. Fingerstick INR with Coumadin clinic of 2.2 on 12/21. Given labile INR, concern patient may have PE. Will not pursue imaging of chest with CTA. Contraindicated with her kidney failure above. -Holding Coumadin, no further anticoagulation in line with patient's/family's goals of care Comfort feeds DNR/DNI Comfort care Asked family if they would like hospice to be involved. At this time they decline. Can reevaluate in the morning. May provide additional resources to family more than patient or change her current course with this.
[2024-12-27 19:00] VITALS: BP 93/59; PULSE 102; RESP 32; O2SAT 88
--- NOTE | 2024-12-27 19:00 | HMH.EDGENADL ---
Discharge Plan Disposition Patient Disposition: Admitted Condition: Other Clinical Impressions Clinical Impression: Need for comfort care, Metastatic cancer, Acidosis, lactic, High anion gap metabolic acidosis, Encephalopathy acute Discharge ED Provider: Cory Elam Adult HPI General Chief complaint: Altered Mental Status Stated complaint: weakness Time Seen by Provider: 12/27/24 17:41 Mode of Arrival: EMS Source of Information: EMS Description of Symptoms (Recalled from ER Triage Doc. by RN): PT BROUGHT VIA EMS, BROUGHT FROM HOME AFTER PT UNRESPONSIVE DURING HOME HEALTH VISIT. FAMILY WANTED PT EVALUATED AND BROUGHT FOR IVF'S. PT ARRIVES MINIMALLY RESPONSIVE TO PAINFUL STIMULI. PT WITH METASTATIC CANCER, NO LONGER SEEKING TREATMENT. EMS REPORTS GCS 4, MAINTAINING AIRWAY. History of Present Illness HPI narrative: This is a 79-year-old female patient, with past medical history of renal failure, multiple DVTs and PEs on anticoagulant therapy, as well and stage IV colon cancer, who was presenting to the emergency department today for evaluation of encephalopathy. The patient's family states that she was recently admitted 2 weeks ago for an acute kidney injury. She was ultimately medically optimized and discharged home. She is currently no longer pursuing chemotherapy as of July of this year but she has also been declining hospice care. As of this morning the patient was mentating normally and was appropriately conversational with her family. As the day went on she became progressively encephalopathic and weak and this afternoon she stopped responding to her family so they called EMS for transport to the hospital. EMS found the patient to be significantly altered with a GCS of 3. At the time of arrival to the residence family was unable to comment on the patient's CODE STATUS. Related Data Home Medications ?Medication ?Instructions ?Recorded ?Confirmed potassium chloride 20 mEq 20 meq PO DAILY 07/14/24 12/12/24 tablet,extended release nystatin 100,000 unit/gram topical 1 applic topical BIDP PRN Rash 09/20/24 12/12/24 powder (Nystop) hydrocodone 10 mg-acetaminophen 1 - 2 tab PO Q4HP PRN Moderate 12/12/24 12/12/24 325 mg tablet Pain (Scale Score 5-6) ondansetron 8 mg disintegrating 8 mg PO TIDP PRN Nausea And 12/12/24 12/12/24 tablet Vomiting spironolactone 25 mg tablet 25 mg PO DAILY 12/12/24 12/12/24 warfarin 2 mg tablet (Jantoven) 2 mg PO DAILY 12/12/24 12/12/24 Held on 12/13/24. Instructions: Follow-up with Coumadin clinic. Previous Rx's ?Medication ?Instructions ?Recorded cefdinir 300 mg capsule 300 mg PO Q12H #12 caps 12/13/24 Allergies Allergy/AdvReac Type Severity Reaction Status Date / Time tetracycline Allergy Rash Verified 09/19/24 14:19 [facility] Disclaimer: The information contained in this section may have been updated after the patient was seen, as this information can be updated by other users. Medical History Hx of deep venous thrombosis Hx pulmonary embolism Interatrial cardiac shunt PAF (paroxysmal atrial fibrillation) Palpitations Colon cancer metastasized to liver Social History (Updated 12/27/24 @ 23:30 by Natalie Coon RN) Smoking Status: Never smoker alcohol intake: never current occupational status: other Travel in the last 8 weeks?: None Have you lived/traveled outside US in past 30 days?: No Contact w/someone who lives/traveled outside US past 30 days?: No Exposure to someone with infectious disease in past 14 days?: No Do you have a fever (greater than 100.4 F or 38 C)?: No Have you tested positive for COVID-19?: No Exposed to someone with COVID-19 in past 14 days?: No Do you have a sore throat?: No Do you have a cough?: No Do you have any weakness?: No Do you have any diarrhea?: No Are you experiencing any unusual bleeding?: No Do you have any muscle aches/pain?: No Do you have any abdominal pain?: No Are you experiencing loss of taste or smell?: No Other Medical History Have you received the Flu Vaccine for this season: No Have you received the Pneumonia Vaccine: No ROS Obtained: Yes Systems reviewed as appropriate & no additional complaints except as documented Physical Exam General General appearance: cachectic and other Comment: Ill and toxic appearing Head Head exam: atraumatic Eye Eye exam: Present other (Does not open eyes spontaneously) Chest Chest inspection: Present symmetric chest wall rise Respiratory Respiratory exam: Present respiratory distress Cardiovascular Cardiovascular exam: Present normal rhythm Neurological Exam Neurological exam: Present other (Disoriented with a GCS of 3) Medical Decision Making Medical Records Medical records reviewed: Yes I reviewed the patient's medical records. Screening: Per USPSTF and CDC recommendations, given the prevalence of disease in our region, it is our hospital?s policy to screen for HIV and viral Hepatitis for all patients aged 18 and over and those with ongoing risk factors. Iglesia Inquiry Pt receiving controlled substance: No Iglesia was queried for this patient: No Vital Signs: 12/27/24 17:17 12/27/24 19:00 12/27/24 19:26 Temperature 96.5 F L 96.5 F L Temperature Source Temporal Artery Scan Pulse Rate 102 H 102 H Pulse Rate [Apical] 107 H Respiratory Rate 14 32 H 28 H Blood Pressure 93/59 L 93/59 L Blood Pressure [Right Arm] 96/58 L Blood Pressure Mean [Right Arm] 70 Blood Pressure Source [Right Arm] Automatic Cuff Blood Pressure Position Sitting Blood Pressure Position [Right Arm] Supine 02 Sat by Pulse Oximetry 79 L 88 L Oxygen Delivery Method Room Air Non-Rebreather Non-Rebreather Lab Data Lab Results 12/27/24 17:40: WBC 8.5, RBC 3.79 L, Hgb 9.8 L, Hct 33.3 L, MCV 87.9, MCH 25.9 L, MCHC 29.4 L, RDW 18.0 H, Plt Count 472 H, MPV 9.9, Neut % (Auto) 86.5 H, Lymph % (Auto) 9.6 L, Walker % (Auto) 2.9, Eos % (Auto) 0.0 L, Baso % (Auto) 0.2, Neut # (Auto) 7.4, Lymph # (Auto) 0.8, Walker # (Auto) 0.3, Eos # (Auto) 0.0, Baso # (Auto) 0.0, VBG pH 7.23 L, VBG pCO2 29.4 L, VBG pO2 81.6 H, VBG HCO3 12.0 L, VBG Total CO2 12.9 L, VBG O2 Saturation 93.3 H, VBG Base Excess -14.2 L, VBG Lactic Acid 12.2 H, Sodium 133 L, Potassium 4.3, Chloride 100, Carbon Dioxide 13 L, Anion Gap 24.3 H, BUN 29 H, Creatinine 2.40 H, Estimated Creat Clear 28, Estimated GFR 20 L, Est GFR ( Amer) 24 L, Glucose 159 H, Calcium 9.5, Total Bilirubin 1.8 H, AST 85 H, ALT 33, Alkaline Phosphatase 631 H, Troponin I 0.03, Total Protein 6.1 L, Albumin 2.9 L, Globulin 3.2, Albumin/Globulin Ratio 0.9 L, Lipase 18 L, Procalcitonin 5.96 H 12/27/24 17:40 12/27/24 17:40 Orders (Tests/Meds): ED MEDICATIONS Generic Name Dose Route Start Last Admin Trade Name Freq PRN Reason Stop Dose Admin Acetaminophen 1,000 mg 12/27/24 18:21 Acetaminophen 1,000mg/100ml Vial IV Q6HP PRN Fever >102; mild pain (1-3) Morphine Sulfate 4 mg 12/27/24 19:16 Morphine 4mg/Ml Syringe IV 01/26/25 19:15 Q2HP PRN Severe Pain (7-10) Discontinued Medications Generic Name Dose Route Start Last Admin Trade Name Freq PRN Reason Stop Dose Admin Morphine Sulfate 4 mg 12/27/24 18:21 Morphine 4mg/Ml Syringe IV 01/26/25 18:20 Q4HP PRN Severe Pain (7-10) ORDERS Category Date Time Status CXR --portable [XR chest portable] Stat Exams 12/27/24 17:43 Completed CBC w/Auto Diff [Complete Blood Count Auto Diff] Stat Lab 12/27/24 17:40 Completed CMP [Comprehensive Metabolic Panel] Stat Lab 12/27/24 17:40 Completed Lipase Stat Lab 12/27/24 17:40 Completed Procalcitonin Stat Lab 12/27/24 17:40 Completed Troponin I Stat Lab 12/27/24 17:40 Completed VBG [Venous Blood Gas] Stat RT 12/27/24 17:40 Completed Medical Decision Narrative: In summary, this is a 79-year-old female patient who is presenting to the emergency department today for evaluation of profound encephalopathy with a GCS of 3. Comorbidities include stage IV metastatic colon cancer from which the patient withdrew chemotherapy treatments back in July. On initial evaluation of the patient she is profoundly encephalopathic with a GCS of 3. She is unable to phonate. She appears to be in acute respiratory distress with tachypnea and deep breathing. She appears both ill and toxic. Differential diagnosis at this time includes bacteremia, sepsis, pneumonia, urinary tract infection, acute coronary syndrome, spread of metastatic disease, intracranial masses, among others. After the patient arrived to the emergency department we did establish IV access and obtained labs. Labs were personally interpreted by me and demonstrates a metabolic acidosis with a pH of 7.23 and a lactic acid of 12. Anion gap is elevated at 24.3. Procalcitonin is 5.96. We held off on intubation as the family called the hospital and said that they did not want any further intervention on the patient until they arrived to the hospital. After they arrived we had a long discussion about the patient's plan of care moving forward. They stated that she very clearly does not wish to be full code and she would like to be DNR DNI and they would like to honor that wish. This conversation was witnessed by multiple staff and nurses. At this time we discussed what they would like to do moving forward and ultimately decided on comfort care. Given the family's decision to pursue comfort care, I did have an interactive discussion with the internal medicine service who agreed to evaluate the patient the emergency department. After our discussion their evaluation have agreed to admit the patient to their service and accept primary responsibility the patient moved for Critical Care Critical Care Time Critical Care Time: No
--- NOTE | 2024-12-27 19:24 | PC.NURSE ---
Report given to Natalie RN on the floor
[2024-12-27 19:26] VITALS: BP 93/59; PULSE 102; RESP 28; TEMP 35.8; O2SAT 88
[2024-12-27 19:28] LABS: Procalcitonin 5.96 ng/mL (0.0-2.0)
[2024-12-27 20:00] VITALS: BP 99/42; PULSE 101; RESP 19; TEMP 36.7; O2SAT 87
[2024-12-27 20:10] VITALS: PULSE 101
--- NOTE | 2024-12-27 20:20 | PC.NURSE ---
Patient arrived to floor via stretcher from ED at 20:01.
--- NOTE | 2024-12-27 21:57 | EXP.DEATH.NO ---
Pronouncement Note Contributing Factors (1) Metabolic acidosis: (2) Acute hypoxemic respiratory failure: (3) Sepsis: (4) Left lower lobe pneumonia: (5) ANMOL (acute kidney injury): (6) Hyponatremia: (7) Colon cancer metastasized to liver: Summary Additional details: Ms. Roblero is a 79-year-old female with a significant medical history of metastatic colon cancer with mets to the liver diagnosed 2 years ago. Stopped chemotherapy as of July. Has been at home and not wanting to pursue hospice. Wanted to at home per family. Had an abrupt change in mentation and alertness today at home leading to calling EMS for evaluation. On arrival to the ER, patient appears in severe sepsis with acute hypoxemic respiratory failure and is frankly obtunded with a GCS of 3. After discussion with family at bedside, they do not want to pursue life-prolonging or aggressive measures. They want to focus on keeping her comfortable as they understand her condition is terminal. Discussed case with ER physician, request admission for comfort care as patient's is imminent. I decided to admit for further care and management. Review of her workup in the ER shows normal white count of 8.5, neutrophil predominance of 86%. She is meeting severe sepsis criteria with organ dysfunction, tachycardia of 107, tachypnea of 33 on my evaluation. Hypothermic at 96.5 and hypoxic at 79 on arrival to the ER. Blood pressure soft at 96/58. Patient nonresponsive on exam. Concern for left lower lobe pneumonia. In light of family's preference (daughter who is at bedside) she does not want to proceed with life-prolonging or aggressive measures. Will not proceed with antibiotics or fluids at this time. Patient's condition appears terminal. We will focus on comfort. Problems addressed as follows: #Metastatic colon cancer # Severe sepsis # Left lower lobe pneumonia # Acute hypoxemic respiratory failure #ANMOL ?Initiate morphine 4 mg every hour as needed for pain or air hunger, reports taking hydrocodone 5 to 10 mg as needed every 4 hours at home - Tylenol 1000 mg IV as needed for mild to moderate pain or fever - White count 8.5, hemoglobin 9.8. Kidney function abnormal with BUN 29, creatinine 2.4. Patient has metabolic acidosis with lactate of 12.2, pH of 7.23 on VBG with pCO2 of 29. Bicarb of 13. Anion gap 24 ? We will not administer IV fluids or IV antibiotics -In line with goals of care, no labs ordered for the morning -Per my review of chest x-ray has left lower lobe consolidation/air space disease #Supratherapeutic INR ?Patient is on warfarin therapy for a history of A-fib and multiple blood clots PE's/DVT's. INR was 8 earlier this month 2 weeks ago. Fingerstick INR with Coumadin clinic of 2.2 on 12/21. Given labile INR, concern patient may have PE. Will not pursue imaging of chest with CTA. Contraindicated with her kidney failure above. -Holding Coumadin, no further anticoagulation in line with patient's/family's goals of care DNR/DNI Comfort care Additional Data Confirmation of : no pulse, no respirations, no heart sounds and pupils fixed and dilated Family: at bedside Attending/PCP notified?: Yes Attending physician: Jim Landry MD Autopsy should be considered if:: Unknown or unanticipated medical complications Cause is not known with certainty on clinical grounds Would allay concerns of the public/family regarding Unexplained/unexpected apparently natural and not subject to a forensic medical jurisdiction DOA Within 24 hours of admission Sustained or apparently sustained injury while in the hospital Result of high risk, infectious and contagious disease Obstetric and pediatric arising from environmental or occupational hazard Unexplained/unexpected from dental, medical, or surgical diagnostic procedures and/or therapies Would disclose a known or suspected illness which also may have a bearing on survivors or recipients of transplanted organs Autopsy requested?: No Does not meet criteria
--- NOTE | 2024-12-27 22:38 | PC.NURSE ---
Called [facility] at 22:30.
--- NOTE | 2024-12-27 23:18 | PC.NURSE ---
Late Entry (for 22:04): [facility] was contacted at 22:04 regarding this patient. Xavier Jovel was the medical device sales representative I consulted with.
--- OUTSIDE RECORDS SUMMARY | 2024-12-28 12:41 | XMS_ITS | Encounter Summary ---
Author Organization [place] [address] Care Team Providers Care Certified Professional Coder Name Role Phone Luis Villasenor MD Unavailable [phone] Luis Villasenor MD Primary Care Provider Encounter Details Date Type Department Care Team (Late Contact Info) Description 11/30/2024 Orders Only SEP Sarah [address] [place], [id number] Pau Gray, A [address] [place] [address] 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 due to chronic blood [...] as of this encounter Care Teams Certified Professional Coder Relationship Specialty Start Date End Date Luis Villasenor MD [address] [place] [phone] PCP - OBGYN 01/09/10 Luis Villasenor MD [address] [place] [phone] PCP - General 01/09/10 documented as of this encounter
--- OUTSIDE RECORDS SUMMARY | 2024-12-28 12:41 | XMS_ITS | Encounter Summary ---
Author Organization [place] [address] Care Team Providers Care Coat Operator Insulator Name Role Phone Luis Villasenor MD Unavailable [phone] Luis Villasenor MD Primary Care Provider Reason for Visit * Reason Onset Date Comments Orders 12/14/2024 SN Encounter Details Date Type Department Care Team (Late Contact Info) Description 12/14/[address] [facility] [address] [place] [address] Luis Villasenor MD [address] [facility] [address] Orders (SN) Social History Tobacco Use [...] name: Willem) What Orders are being requested: Penitentiary Reason Orders are Needed (Diagnosis): Malignant neoplasm of the liver Is a verbal order being requested: Yes If non-[facility] facility, where should the order be faxed [...] documented as of this encounter Care Teams Coat Operator Insulator Relationship Specialty Start Date End Date Luis Villasenor MD [address] [place] [phone] PCP - OBGYN 01/09/10 Luis Villasenor MD [address] [place] [phone] PCP - General 01/09/10 documented as of this encounter
--- OUTSIDE RECORDS SUMMARY | 2024-12-28 12:41 | XMS_ITS | Encounter Summary ---
Author Organization [place] [address] Care Team Providers Care Glue Maker Bone Name Role Phone Luis Villasenor MD Unavailable [phone] Luis Villasenor MD Primary Care Provider Reason for Visit * Reason Onset Date Comments Orders 09/30/2024 SN,verbal Encounter Details Date Type Department Care Team (Late Contact Info) Description 09/30/2024 Telephone SEP Sarah [facility] [place] [address] Luis Villasenor MD [address] [facility] [place] [address] Orders (SN,verbal ) Social History Tobacco [...] name: Ivis) What Orders are being requested: Long Term Reason Orders are Needed (Diagnosis): increase frequency for more education Is a verbal order being requested: Yes If non-[facility], where should the order be faxed [...] documented as of this encounter Care Teams Glue Maker Bone Relationship Specialty Start Date End Date Luis Villasenor MD [address] [place], [place] [phone] PCP - OBGYN 01/09/10 Luis Villasenor MD [address] [place], [place] [phone] PCP - General 01/09/10 documented as of this encounter
--- OUTSIDE RECORDS SUMMARY | 2024-12-28 12:41 | XMS_ITS | Encounter Summary ---
Author Organization [place] [address] Care Team Providers Care Mixer Dry Food Products Name Role Phone Luis Villasenor MD Unavailable [phone] Luis Villasenor MD Primary Care Provider Reason for Visit * Reason Onset Date Comments Other 10/11/2024 FYI- pt is wanti palliative care, home health asking if pcp would like to do this. Encounter Details Date Type Department Care Team (Late st Contact Info) Description 10/11/2024 Telephone SEP Sarah [address] [place] [address] Luis Villasenor MD [address] [place] [phone] Other (FYI- pt is wanting palliative [...] documented as of this encounter Care Teams Mixer Dry Food Products Relationship Specialty Start Date End Date Luis Villasenor MD [address] [place] [phone] PCP - OBGYN 01/09/10 Luis Villasenor MD [address] [place] [phone] PCP - General 01/09/10 documented as of this encounter
--- OUTSIDE RECORDS SUMMARY | 2024-12-28 12:41 | XMS_ITS | Encounter Summary ---
Author Organization [place] [address] Care Team Providers Care Glass Etcher Helper Name Role Phone Luis Villasenor MD Unavailable [phone] Luis Villasenor MD Primary Care Provider Encounter Details Date Type Department Care Team (Late Contact Info) Description 12/05/2024 Orders Only SEP Sarah [address] [place], [phone] Pau Gray, A [address] [place] [address] 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 due to chronic blood [...] documented as of this encounter Care Teams Glass Etcher Helper Relationship Specialty Start Date End Date Luis Villasenor MD [address] [place] [phone] PCP - OBGYN 01/09/10 Luis Villasenor MD [address] [place] [phone] PCP - General 01/09/10 documented as of this encounter
--- OUTSIDE RECORDS SUMMARY | 2024-12-28 12:41 | XMS_ITS | Encounter Summary ---
Author Organization [place] [address] Care Team Providers Care Pattern Shop Supervisor Name Role Phone Luis Villasenor MD Unavailable [phone] Luis Villasenor MD Primary Care Provider Encounter Details Date Type Department Care Team (Late Contact Info) Description 11/28/2024 Orders Only SEP Sarah [address] [place] [phone] Amarilis Nolan, RN STAFFING [address] [place] [address] 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 due to chronic [...] documented as of this encounter Care Teams Pattern Shop Supervisor Relationship Specialty Start Date End Date Luis Villasenor MD [address] [place] [phone] PCP - OBGYN 01/09/10 Luis Villasenor MD [address] [place] [phone] PCP - General 01/09/10 documented as of this encounter
--- OUTSIDE RECORDS SUMMARY | 2024-12-28 12:41 | XMS_ITS | Clinical Summary ---
Author Organization [facility] Address [address] [place] [address] Phone Care Team Providers Care Dog Barber Name Role Phone Luis Villasenor MD Unavailable [phone] Luis Villasenor MD Primary Care Provider Allergies [...] Thursday. 8 Each Active IV Administration Set [facility] Infusion SetIndications:Deh ydration,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),Malignant tumor of ascending colon (HCC),Palliative care patient 1 Each by [facility].(Non-Drug; Combo Route) route two times a week on Thursday and Thursday. 8 Each 025 Active iron sucrose (VENOFER) 200 mg iron/10 mL IV SolutionIndication s: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 due to chronic blood loss Inject 10 mL into the vein once a week for 2 doses. iron sucrose (venofer) 200mg in sodium chloride 0.9% 120ml IVPB 20 mL 025 2024 IV Administration Set [facility] Infusion SetIndications:Deh ydration,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),Malignant tumor of ascending colon (HCC),Palliative care patient 1 Each by [facility].(Non-Drug; Combo Route) route every 7 days. 4 [...] early 2024 per patient decision Managed by [facility] Oncology and Hematology Assessment & Plan (10/02/2024 10:12 PM EDT): - has active disease - managed by Oncology -has stopped treatment 07/2024 Assessment & Plan (06/14/2024 9:41 PM EST): - has active disease - currently undergoing chemotherapy / immunotherapy - managed by Oncology, [facility] Oncology and Hematology Malignant tumor of ascending colon 06/14/2024 Overview (06/14/2024): CT scan 01/2023 with multiple masses of liver and ascending colon thickening. 04/2023, R hemicolectomy and anastomosis, pathology of invasive moderately differentiated adenocarcinoma. Metastatic adenocarcinoma in 2/10 lymph nodes. Wedge resection of the liver with metastatic adenocarcinoma consistent with colon primary. Continues with chemotherapy a1zedau. Managed by [facility] Oncology and Hematology Assessment & Plan (10/02/2024 10:12 PM EDT): - has active disease - managed by Oncology -has stopped treatment 07/2024 Assessment & Plan (06/14/2024 9:41 PM EST): - has active disease - currently undergoing chemotherapy / immunotherapy - managed by Oncology, [facility] Oncology and Hematology jail (current) use of anticoagulants 2024 Overview (10/02/2024): Coumadin therapy, Afib Assessment & Plan (10/02/2024 10:12 PM EDT): On coumadin therapy, managed by the coumadin clinic at [facility], Dr. Youngblood, cardiology. Taking 5mg // and 2.5mg other days Paroxysmal atrial fibrillation 06/14/2024 Overview (06/14/2024): Dr. Youngblood, cardiology, [facility] Assessment & Plan (10/02/2024 10:12 PM [...] new coumadin start today Medication Management: - [id number] score considered in medication management decisions at [...] Living will, counseling/discussion 03/30/2015 Overview (02/09/2020): Declines usp vent support and watermaster hydration and nutrition via feeding tube or [...] glucose tolerance) Overview (03/30/2015): Calorie restrict attempt [phone] calories per day. Decrease starches like bread [...] Department Care Team Description 12/26/2024 Orders Only [address] [place] [address] Luis Villasenor MD 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 due to chronic blood loss (Primary Dx); oysterman (current) use of anticoagulants; Type 2 diabetes mellitus without complication, unspecified whether watermaster insulin use (HCC); Hyponatremia; Paroxysmal atrial fibrillation (HCC); Dehydration 12/19/2024 9:00 AM EDT Office Visit [address] [place] [address] Amarilis Nolan APRN Medicare annual wellness visit, subsequent (Primary Dx); Paroxysmal atrial fibrillation (HCC); Malignant tumor of ascending colon (HCC); Hyponatremia; Type 2 diabetes mellitus without complication, unspecified whether watermaster insulin use (HCC); Skin breakdown; oysterman (current) use of anticoagulants 12/19/2024 Results Follow-Up [facility] [address] [place] [address] Charlotte Mccann, MAYA IRIS DIABETIC RETINOPATHY EXAM 12/14/[address] [place] [address] Luis Villasenor MD Orders (SN) 12/05/2024 Orders Only [address] [place] [address] Pau Gray, MIKALA 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 due to chronic blood loss 12/01/[address] [place] [address] Luis Villasenor MD Follow Up (Need diagnosis code on infusion order - ok to handwrite on order - please fax to [phone]) 11/30/2024 Orders Only [address] [place] [address] Pau Gray, RMA 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 due to chronic blood loss 11/28/2024 Orders Only [address] [place] [address] Amarilis Nolan, TEAM ASSEMBLER 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 due to chronic blood loss (Primary Dx) 11/25/[address] [place] [address] Amarilis Nolan, TEAM ASSEMBLER Orders 11/14/2024 9:00 AM EDT Office Visit [address] [place] [address] Amarilis Nolan, TEAM ASSEMBLER 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) (Primary Dx); History of DVT (deep vein thrombosis); Paroxysmal atrial fibrillation (HCC); Cobalamin deficiency; Flank pain; Dehydration; Blood loss 11/11/2024 Orders Only [address] [place] [address] Amarilis Nolan, TEAM ASSEMBLER Flank pain (Primary Dx); Blood loss; Dehydration 11/04/2024 11:15 AM EDT Office Visit [address] [place] [address] Amarilis Nolan, TEAM ASSEMBLER Diverticulitis of large intestine without perforation or abscess without bleeding (Primary Dx); Peripheral edema; Malignant tumor of ascending colon (HCC); 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) 11/01/[address] [place] [address] Luis Villasenor MD Other 10/28/2024 Results Follow-Up [address] [place] [address] Amarilis Nolan, TEAM ASSEMBLER COMPREHENSIVE METABOLIC PANEL, URINE CULTURE (NO STAIN) 10/26/2024 11:00 AM EDT Clinical Support [address] [place] [address] Freya oCon Flank pain 10/26/2024 Orders Only SEP [address] [place], [place] [address] Amarilis Nolan APRN Flank pain (Primary Dx) 10/26/[address] [place] [address] Luis Villasenor MD Relaying Information (Reporting new issues with pain. ///) 10/11/[address] [place], [place] [address] Luis Villaesnor MD Other (FYI- pt is wanting palliative care, home health asking if pcp would like to do this. ) 10/07/[address] [place] [address] Luis Villasenor MD Orders (VO for OT) 09/30/[address] [place], [place] [address] Luis Villasenor MD Orders (SN,verbal ) from [...] INTRAOCULAR LENS; Surgeon: Keith Lynn MD; Location: [facility]; Service: Ophthalmology Medical devices from this surgery are in the Medical Devices section. CATARACT REMOVAL 08/03/2013 Eye/Right RIGHT EYE CATARACT EXTRACTION WITH PHACOEMULSIFICATION AND INTRAOCULAR LENS ; Surgeon: Keith Lynn MD; Location: [facility]; Service: Ophthalmology Medical devices from this [...] [place] [employer] Medical Devices Implanted Type Area Pulverizing And Sifting Operator Device Identifier Shelf Expiration Date Model / Serial / Lot Lens Intraocular 23.0 Diopter Acrysof Iq 13.0mm Length 6.0mm - [id number] Implanted:Qty: 1 on 07/09/2013 by Keith Lynn MD at [facility] Left: Eye [facility]:SURG 01/30/2018 [id number]. 0 / [id number] / Lens Intraocular 23.5 Diopter Acrysof Iq 13.0mm Length 6.0mm - [id number] Implanted:Qty: 1 on 08/03/2013 by Keith Lynn MD at [facility] Right: Eye [facility]:SURG 03/01/2018 [id number]. 5 / [id number] / Procedures Procedure Name Priority Date/Time Associated Diagnosis Comments IRIS DIABETIC RETINOPATHY EXAM Routine 12/19/2024 9:25 AM EDT Type 2 diabetes mellitus without complication, unspecified whether watermaster insulin use (HCC) FERRITIN Routine 11/14/2024 10:07 [...] None SE LAB Right Macular Edema None [facility] Right Other Retina None SE LAB Right Eye Image Quality Gradable Image [facility] Left Diabetic Retinopathy None SE LAB Left Macular Edema None [facility] Left Other Retina None [facility] Left Eye Image Quality Gradable Image [facility] 12/19/2024 9:25 AM EDT 12/19/2024 9:25 AM EDT Impressions [facility] - 12/19/2024 9:31 AM EDT Retinal Study Result for DESHAWNTESSIE ROBLERO, a 79 y/o, F (: 1945, ) presented to [facility] on 12-19-2024 for a [...] signed by John Hylton MD, , Taxonomy: [id number] on 12-19-2024 13:31 [facility]. NOTE: Any pathology noted on this diabetic retinal evaluation should be confirmed by an appropriate ophthalmic examination. us Amarilis Nolan APRN OPHTHALMOLOGY SERVICES OR DERABLES Final Result [facility] [address] [place] [id number] * (ABNORMAL) IRON+TIBC (11/14/2024 10:07 AM EDT) Iron 26(L) 30 - 160 mcg/dL 11/14/2024 4:07 PM EDT [facility]REFERRED [facility] Transferrin 153(L) 200 - 360 mg/dL 11/14/2024 4:07 PM EDT [facility] Transferrin Saturation 12(L) 20 - 50 % 11/14/2024 4:07 PM EDT [facility] TIBC 214(L) 250 - 400 mcg/dL 11/14/2024 4:07 PM EDT [facility] Blood VENOUS BLOOD / Unknown Venipuncture / Unknown 11/14/2024 10:07 AM EDT 11/14/2024 10:07 AM EDT Amarilis Nolan APRN CHEMISTRY ORDERABLES Kell l Result Performing Organization Address [facility] Phone Number [address] , [place] [address] * VITAMIN B12/ FOLIC ACID (11/14/2024 10:07 AM EDT) [facility] Vitamin B12 801 232 - 1,245 pg/mL 11/14/2024 4:02 PM EDT [facility] Folate 9.89 >=4.80 ng/mL 11/14/2024 4:02 PM EDT [facility] Blood VENOUS BLOOD / Unknown Venipuncture / Unknown 11/14/2024 10:07 AM EDT 11/14/2024 10:07 AM EDT Narrative [facility] - 11/14/2024 4:02 PM EDT Ingestion of rocio doses of biotin (>5 mg/day) taken within 8 hours of drawing blood sample can interfere with this immunoassay test. Amarilis Nolan APRN CHEMISTRY ORDERABLES Kell l Result Performing Organization Address [facility] Phone Number [address] [place] [address] * (ABNORMAL) CBC WITH DIFF (11/14/2024 10:07 AM EDT) [facility] WBC 10.0 3.7 - 10.3 x10(3)/mcL 11/14/2024 [...] [facility] Platelet 375(H) 155 - 369 x10(3)/[facility] 11/14/2024 3:44 PM EDT PREFERRED LAB [...] 3:44 PM EDT [facility] Clark Percent 8.3 % 11/14/2024 3:44 PM EDT [facility] Eos Percent 3.5 % 11/14/2024 3:44 PM EDT [facility] Baso Percent 0.6 % 11/14/2024 3:44 PM EDT [facility] Neut # 7.7(H) 1.6 - 6.1 x10(3)/[facility] 11/14/2024 3:44 PM EDT PREFERRED LAB [employer], [facility] Comment:Neutrophils equals s egs plus bands IMMGRAN# 0.1 0.0 - 0.1 x10(3)/[facility] 11/14/2024 3:44 PM EDT [facility] [employer], [facility] Comment:Automated count of m etamyelocytes, myelocytes and promyelocytes. An absolute IG <0.1 is reported as 0.0. Lymph # 1.0(L) 1.2 - 3.9 x10(3)/[facility] 11/14/2024 3:44 PM EDT [facility]REF[facility]ED [facility] Clark # 0.8 0.3 - 0.9 x10(3)/[facility] 11/14/2024 3:44 PM EDT PREFERRED [facility] Eos# 0.4 0.0 - 0.5 x10(3)/[facility] 11/14/2024 3:44 PM EDT [facility] [employer], [facility] Baso # 0.1 0.0 - 0.1 x10(3)/[facility] 11/14/2024 3:44 PM EDT [facility] [employer], [facility] Blood VENOUS BLOOD / Unknown Venipuncture / Unknown 11/14/2024 10:07 AM EDT 11/14/2024 10:07 AM EDT us Amarilis Nolan TEAM ASSEMBLER HEMATOLOGY ORDERABLES Fin al Result PREFERRED [facility] [employer], [facility] [address] [facility] , [place] [address] * (ABNORMAL) FERRITIN (11/14/2024 10:07 AM EDT) Ferritin 728(H) 30 - 150 ng/mL 11/14/2024 4:07 PM EDT [facility] [employer], [facility] Comment:The lower threshold of 30 is [...] with this immunoassay test. us Amarilis Nolan TEAM ASSEMBLER CHEMISTRY ORDERABLES Kell orlando Result [facility] [address] [facility] , [place] [address] * (ABNORMAL) COMPREHENSIVE METABOLIC PANEL (11/14/2024 10:07 [...] 11/14/2024 4:07 PM EDT [facility] Total Protein 7.8 6.4 - 8.3 gm/dL 11/14/2024 4:07 PM EDT [facility] Bili Total 0.6 0.2 - 1.3 mg/dL 11/14/2024 4:07 PM EDT [facility] ALT <5 <=41 U/L 11/14/2024 4:07 PM EDT [facility] AST 23 <=40 U/L 11/14/2024 4:07 PM EDT [facility] Alk Phos 465(H) 36 - 123 U/L 11/14/2024 4:07 PM EDT [facility] eGFR (CKD-EPIcr 2020) 39(L) >=60 mL/min/1.7 3 m2 11/14/2024 4:07 PM EDT [facility] Comment:Estimated GFR was ca lculated using the CKD-EPIcr (2020) equation refit without race. The equation is recommended by the National Kidney Foundation - [place] Society of Nephrology Task Force. Blood VENOUS BLOOD / Unknown Venipuncture / Unknown 11/14/2024 10:07 AM EDT 11/14/2024 10:07 AM EDT Amarilis Nolan APRN CHEMISTRY ORDERABLES Kell l Result [facility] [employer], [facility] [address] [facility] , [place] [address] * URINE CULTURE (NO STAIN) (10/26/2024 11:17 AM EDT) Culture Multiple bacterial species isolated from urine consistent with urogenital commensal organisms. 10/27/2024 10:23 PM EDT [facility] [employer], [facility] Urine STRUCTURE OF URINARY TRACT PROPER / Unknown 10/26/2024 11:17 AM EDT 10/26/2024 11:17 AM EDT Amarilis Nolan APRN MICROBIOLOGY - GENERAL OR DERABLES Final Result [facility], [address] [place] [address] * (ABNORMAL) SEP URINALYSIS POC (10/26/2024 [...] ORDERABLES Fi nal Result [place] [address] [place] [address] * (ABNORMAL) HEMOGLOBIN A1C (09/08/2022 2:38 PM EDT) Hgb A1C 7.3(H) 4.2 - 5.6 % 09/08/2022 8:16 PM EDT [facility] [employer] [facility] Est. Avg Glucose 163 mg/dL 09/08/2022 8:16 PM EDT [facility] [employer] [facility] Blood VENOUS BLOOD / Unknown Venipuncture / Unknown 09/08/2022 2:38 PM EDT 09/08/2022 2:38 PM EDT Narrative [facility] [employer] [facility] - 09/08/2022 8:16 PM EDT REFERENCE RANGE: Normal: 4.0-5.6% Pre-diabetes: 5.7-6.4% Provisional diagnosis of diabetes: >6.4% Hgb F>10% and anything which shortens red cell survival, such as hemolytic anemia, or unstable hemoglobin variants such as HbSS, HbSC, or HbCC, will lower the HbA1c value associated with a given level of glycemic control. us Luis Villasenor MD CHEMISTRY ORDERABLES Final Result [facility] [employer] [facility] [address] [facility] , [place] [address] * LIPID PANEL REFLEX (02/09/2020 9:38 AM EDT) Cholesterol 157 <200 mg/dL 02/09/2020 4:17 PM EDT [facility] [employer] [facility] Comment: < 200 Desirable 200 - 239 Borderline High >= 240 High Triglyceride 85 <150 mg/dL 02/09/2020 4:17 PM EDT [facility] [employer] [facility] Comment: < 150 Normal 150 - 199 Borderline High 200 - 499 High >= 500 Very High HDL 41 >=40 mg/dL 02/09/2020 4:17 PM EDT [facility] [employer] [facility] Comment: > 60 Optimal 40 - 60 Acceptable < 40 Low LDL Calculated 99 <100 mg/dL 02/09/2020 4:17 PM EDT [facility] [employer] [facility] Non-HDL-C Calculated 116 <=129 mg/dL 02/09/2020 4:17 PM EDT [facility] [employer], [facility] Comment: <130 Desirable 130-159 Above Desirable 160-189 Borderline High 190-219 High >= 220 Very High Fasting Specimen? Yes None 020 4:17 PM EDT [facility] [employer], [facility] Blood VENOUS BLOOD / Unknown Venipuncture / Unknown 02/09/2020 9:38 AM EDT 02/09/2020 9:42 AM EDT us Luis Villasenor MD CHEMISTRY ORDERABLES Final Result [facility] [employer] [address] [facility], [place] [address] * HEPATITIS C ANTIBODY - SCREENING (12/04/2016 11:16 AM EDT) Hep C Ab Negative Negative [facility] Blood specimen (specimen) UPPER LIMB STRUCTURE / Unknown 12/04/2016 11:16 AM EDT 12/04/2016 4:52 PM EDT us Luis Villasenor MD HEMATOLOGY ORDERABLES Final Result [facility] [address] [place] [address] from Last 3 Months or Most Recently Relevant to Health Maintenance Insurance [place] [address] [employer] MEDICARE [place] PART A AND B [employer] [address] [place] [address] [place]ICARE [place] PART A [place] [employer] Advance Directives For more information, please contact: [phone] * Full Code (Latest Code Status on File) Date Activated Date Inactivated Comments 10/28/2018 11:51 AM 10/28/2018 9:26 PM Care Teams Dog Barber Relationship Specialty Start Date End Date Luis Villasenor MD [address] [place] [address] PCP - OBGYN 01/09/10 Luis Villasenor MD [address] [place] [address] PCP - General 01/09/10
--- OUTSIDE RECORDS SUMMARY | 2024-12-28 12:41 | XMS_ITS | Encounter Summary ---
Author Organization [employer] [place] [address] Care Team Providers Care Prosthodontist Name Role Phone Luis Villasenor MD Unavailable [phone] Luis Villasenor MD Primary Care Provider Encounter Details Date Type Department Care Team (Late st Contact Info) Description 09/26/2010 Orders Only SEP [facility] [address] [place] [address] Jennifer Nagel MD [address] [place] [address] Social History Tobacco Use Types Packs/Day Years [...] a practice prior to that practice using [facility] for Medical Records. Performing Provider: JENNIFER NAGEL Jennifer Nagel MD IMG ECHO ORDERABLES Final Result documented in this encounter Visit Diagnoses Not on filedocumented in this encounter Care Teams Prosthodontist Relationship Specialty Start Date End Date Luis Villasenor MD [address] [place] [address] PCP - OBGYN 01/09/10 Luis Villasenor MD [address] [place] [address] PCP - General 01/09/10 documented as of this encounter
--- OUTSIDE RECORDS SUMMARY | 2024-12-28 12:41 | XMS_ITS | Encounter Summary ---
Author Organization [place] [address] Care Team Providers Care Nurse Receptionist Name Role Phone Luis Villasenor MD Unavailable [phone] Luis Villasenor MD Primary Care Provider Reason for Visit * Reason Onset Date Comments Follow Up 12/01/2024 Need diagnosis c ode on infusion order - ok to handwrite on order - please fax to [phone] Encounter Details Date Type Department Care Team (Late st Contact Info) Description 12/01/2024 Telephone SEP Sarah [facility] [place] [address] Luis Villasenor MD [address] [place] [address] Follow Up (Need diagnosis code on infusion order - ok to handwrite on order - please fax to [phone]) Social History Tobacco Use Types Packs/Day Years [...] message: Follow Up Follow Up Who is Calling:[facility] (include which hospital and caller's name) What is the caller following up on (make sure to reference any prior documentation/encounter):Need diagnosis code on infusion order - ok to handwrite on order - please fax to [phone]. Further follow-up needed?:Yes Return Method of Communication:Phone call Additional Information:N/A Fax number [phone]. Thank you. documented in this encounter Plan [...] documented as of this encounter Care Teams Nurse Receptionist Relationship Specialty Start Date End Date Luis Villasenor MD [address] [place] [address] PCP - OBGYN 01/09/10 Luis Villasenor MD [address] [place] [address] PCP - General 01/09/10 documented as of this encounter
--- OUTSIDE RECORDS SUMMARY | 2024-12-28 12:41 | XMS_ITS | Encounter Summary ---
Author Organization [place] [address] Care Team Providers Care Superintendent Maintenance [employer] Name Role Phone Luis Villasenor MD Unavailable [phone] Luis Villasenor MD Primary Care Provider [phone] Reason for Referral * Home Health Care (Routine) - Pending Review Specialty Diagnoses / Procedures Referred By Adelso t Referred To Contact Home Health Diagnoses 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 due to chronic blood loss MCC (current) use of anticoagulants Type 2 diabetes mellitus without complication, unspecified whether half-way insulin use (HCC) Hyponatremia Paroxysmal atrial fibrillation (HCC) Dehydration Luis Villasenor MD [address] [place] [address] Phone: tel: fax: Referral ID Status Reason Start Date Expiration Date Visits Requested Visits Authorized [id number] Pending Review Continuity of Care 12/26/2024 12/26/2025 1 1 Comments Nursing for IV fluids weekly Encounter Details Date Type Department Care Team (Late st Contact Info) Description 12/26/2024 Orders Only SEP Sarah [facility] [address] [place] [address] Luis Villasenor MD [address] [place] [address] 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 due to chronic blood loss (Primary Dx); MCC (current) use of anticoagulants; Type 2 diabetes mellitus without complication, unspecified whether half-way insulin use (HCC); Hyponatremia; Paroxysmal atrial fibrillation [...] deficiency anemia due to chronic blood loss ferry 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 (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) use of anticoagulants Type 2 diabetes mellitus without complication, unspecified whether long term care social worker insulin use (HCC) Hyponatremia Paroxysmal atrial fibrillation [...] deficiency anemia secondary to blood loss (chronic) ferry 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 (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) 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 of anticoagulants Long-term (current) use of anticoagulants Type 2 diabetes mellitus without complication, unspecified whether half-way insulin use (HCC) Hyponatremia Hyposmolality and/or hyponatremia Paroxysmal atrial fibrillation (HCC) Atrial fibrillation Dehydration documented in this encounter Additional Health Concerns Assessment Noted Time A fall risk assessment has been complete d for the patient 06/14/2024 9:03 AM EST documented as of this encounter Care Teams Superintendent Maintenance Airports Relationship Specialty Start Date End Date Luis Villasenor MD [address] [place] [id number] PCP - OBGYN 01/09/10 Luis Villasenor MD [address] [place] [id number] PCP - General 01/09/10 documented as of this encounter
--- OUTSIDE RECORDS SUMMARY | 2024-12-28 12:41 | XMS_ITS | Encounter Summary ---
Author Organization [place] [address] Care Team Providers Care Psychodramatist Name Role Phone Luis Villasenor MD Unavailable [phone] Luis Villasenor MD Primary Care Provider [phone] Encounter Details Date Type Department Care Team (Late Contact Info) Description 12/19/2024 Results Follow-Up SEP [address] [place] [address] Charlotte Mccann RN IRIS DIABETIC RETINOPATHY EXAM [...] results received, patient notified by: Contacted by Ogone message documented in this encounter Plan of [...] documented as of this encounter Care Teams Psychodramatist Relationship Specialty Start Date End Date Luis Villasenor MD [address] [place] [id number] PCP - OBGYN 01/09/10 Luis Villasenor MD [address] [place] [phone] PCP - General 01/09/10 documented as of this encounter
--- OUTSIDE RECORDS SUMMARY | 2024-12-28 12:41 | XMS_ITS | Encounter Summary ---
Author Organization [place] [address] Care Team Providers Care Soda Jerker Name Role Phone Luis Villasenor MD Unavailable [phone] Luis Villasenor MD Primary Care Provider Reason for Visit * Reason Onset Date Comments Orders 11/25/2024 Encounter Details Date Type Department Care Team (Late Contact Info) Description 11/25/2024 Telephone SEP Sarah [address] [place] [address] Amarilis Nolan, MEDIA ANALYST [email or web address] [place] [address] Orders Social History Tobacco Use Types [...] documented as of this encounter Care Teams Soda Jerker Relationship Specialty Start Date End Date Luis Villasenor MD [address] [place] [phone] PCP - OBGYN 01/09/10 Luis Villasenor MD [address] [place] [phone] PCP - General 01/09/10 documented as of this encounter
--- OUTSIDE RECORDS SUMMARY | 2024-12-28 12:41 | XMS_ITS | Encounter Summary ---
Author Organization [place] [address] Care Team Providers Care Controls Technician Name Role Phone Luis Villasenor MD Unavailable [phone] Luis Villasenor MD Primary Care Provider [phone] Reason for Visit * Reason Onset Date Comments Orders 09/22/2024 personal touch h [facility] care Encounter Details Date Type Department Care Team (Late st Contact Info) Description 09/22/2024 Telephone SEP Sarah [facility] [place] [address] [address] Luis Villasenor MD [facility] [place] [address] Orders (personal touch home care) Social [...] lois ) What Orders are being requested: Prison Reason Orders are Needed (Diagnosis): check over vital - head to toe assessment and medication education Is a verbal order being requested: Yes If non-[facility], where should the order be [...] documented as of this encounter Care Teams Controls Technician Relationship Specialty Start Date End Date Luis Villasenor MD [address] [place] [phone] PCP - OBGYN 01/09/10 Luis Villasenor MD [address] [place] [phone] PCP - General 01/09/10 documented as of this encounter
--- OUTSIDE RECORDS SUMMARY | 2024-12-28 12:41 | XMS_ITS | Encounter Summary ---
Author Organization [place] [address] Care Team Providers Care Ruby Engineer Name Role Phone Luis Villasenor MD Unavailable [phone] Luis Villasenor MD Primary Care Provider [phone] Reason for Visit * Reason Onset Date Comments Other 11/01/2024 Encounter Details Date Type Department Care Team (Late Contact Info) Description 11/01/2024 Telephone SEP Sarah [address] [place] [address] Luis Villasenor MD [address] [place] [address] Other Social History Tobacco Use Types [...] documented as of this encounter Care Teams Ruby Engineer Relationship Specialty Start Date End Date Luis Villasenor MD [address] [place] [phone] PCP - OBGYN 01/09/10 Luis Villasenor MD [address] [place] [phone] PCP - General 01/09/10 documented as of this encounter
--- OUTSIDE RECORDS SUMMARY | 2024-12-28 12:41 | XMS_ITS | Encounter Summary ---
Author Organization [place] [address] Care Team Providers Care Neurological Surgeon Name Role Phone Luis Villasenor MD Unavailable [phone] Luis Villasenor MD Primary Care Provider Reason for Visit * Reason Onset Date Comments Orders 10/07/2024 VO for OT Encounter Details Date Type Department Care Team (Late Contact Info) Description 10/07/2024 Telephone SEP Sarah [facility] [place] [address] Luis Villasenor MD [facility] [facility] [place] [address] Orders (VO for OT) Social History [...] verbal order being requested: Yes If non-[facility], where should the order be [...] documented as of this encounter Care Teams Neurological Surgeon Relationship Specialty Start Date End Date Luis Villasenor MD [address] [place] [phone] PCP - OBGYN 01/09/10 Luis Villasenor MD [address] [place] [phone] PCP - General 01/09/10 documented as of this encounter
--- OUTSIDE RECORDS SUMMARY | 2024-12-28 12:41 | XMS_ITS | Encounter Summary ---
Author Organization [place] [address] Care Team Providers Care Periodicals Library Assistant Name Role Phone Luis Villasenor MD Unavailable [phone] Luis Villasenor MD Primary Care Provider Encounter Details Date Type Department Care Team (Late Contact Info) Description 11/11/2024 Orders Only SEP Sarah [address] [place] [phone] Amarilis Nolan, INDOOR SPORTS CENTRE MANAGER [address] [place] [address] Flank pain (Primary Dx); Blood loss; [...] 3:44 PM EDT [facility] Chester Percent 8.3 % 11/14/2024 3:44 PM EDT [facility] Eos Percent 3.5 % 11/14/2024 3:44 PM EDT [facility] Baso Percent 0.6 % 11/14/2024 3:44 PM EDT [facility] Neut # 7.7(H) 1.6 - 6.1 x10(3)/mcL 11/14/2024 3:44 PM EDT [facility] Comment:Neutrophils equals s egs plus bands IMMGRAN# 0.1 0.0 - 0.1 x10(3)/[facility] 11/14/2024 3:44 PM EDT [facility] Comment:Automated count of m etamyelocytes, myelocytes and promyelocytes. An absolute IG <0.1 is reported as 0.0. Lymph # 1.0(L) 1.2 - 3.9 x10(3)/[facility] 11/14/2024 3:44 PM EDT [facility] Chester # 0.8 0.3 - 0.9 x10(3)/[facility] 11/14/2024 3:44 PM EDT [facility] Eos# 0.4 0.0 - 0.5 x10(3)/[facility] 11/14/2024 3:44 PM EDT [facility] Baso # 0.1 0.0 - 0.1 x10(3)/[facility] 11/14/2024 3:44 PM EDT [facility] Blood VENOUS BLOOD / Unknown Venipuncture / Unknown 11/14/2024 10:07 AM EDT 11/14/2024 10:07 AM EDT Amarilis Nolan INDOOR SPORTS CENTRE MANAGER HEMATOLOGY ORDERABLES Fin al Result [facility] [address] [facility] , [place] [address] * (ABNORMAL) COMPREHENSIVE METABOLIC PANEL (11/14/2024 10:07 AM EDT) Sodium 133(L) 136 - 145 mmol/L 11/14/2024 4:07 PM EDT [facility] Potassium 4.5 3.5 - 5.0 mmol/L 11/14/2024 4:07 PM EDT [facility] Chloride 94(L) 98 - 107 mmol/L 11/14/2024 4:07 PM EDT [facility] Total CO2 29 22 - 29 mmol/L 11/14/2024 4:07 PM EDT [facility] Anion Gap 10 7 - 16 mmol/L 11/14/2024 4:07 PM EDT [facility] Calcium 9.2 8.8 - 10.4 mg/dL 11/14/2024 4:07 PM EDT [facility] Glucose Lvl 122(H) 70 - 99 mg/dL 11/14/2024 4:07 PM EDT [facility] BUN 15 8 - 23 mg/dL 11/14/2024 4:07 PM EDT [facility] Creatinine 1.38(H) 0.51 - 1.30 mg/dL 11/14/2024 4:07 PM EDT [facility] Albumin 3.4 3.2 - 4.6 gm/dL 11/14/2024 4:07 PM EDT [facility] Total Protein 7.8 6.4 - 8.3 gm/dL 11/14/2024 4:07 PM EDT [facility] Bili Total 0.6 0.2 - 1.3 mg/dL 11/14/2024 4:07 PM EDT [facility] ALT <5 <=41 U/L 11/14/2024 4:07 PM EDT [facility] AST 23 <=40 U/L 11/14/2024 4:07 PM EDT [facility] Alk Phos 465(H) 36 - 123 U/L 11/14/2024 4:07 PM EDT [facility] eGFR (CKD-EPIcr 2020) 39(L) >=60 mL/min/1.7 3 m2 11/14/2024 4:07 PM EDT [facility] Comment:Estimated GFR was ca lculated using the CKD-EPIcr (2020) equation refit without race. The equation is recommended by the National Kidney Foundation - [place] [employer] Nephrology Task Force. Blood VENOUS BLOOD / Unknown Venipuncture / Unknown 11/14/2024 10:07 AM EDT 11/14/2024 10:07 AM EDT us Amarilis Nolan INDOOR SPORTS CENTRE MANAGER CHEMISTRY ORDERABLES Kell or[place] Result [facility] [address] [facility] , [address] [place], [place] [id number] documented in this encounter Visit Diagnoses Diagnosis Flank pain- Primary Abdominal pain, unspecified site Blood loss Hemorrhage, unspecified Dehydration documented in this encounter Additional Health Concerns Assessment Noted Time A fall risk assessment has been complete d for the patient 06/14/2024 9:03 AM EST documented as of this encounter Care Teams Periodicals Library Assistant Relationship Specialty Start Date End Date Luis Villasenor MD [address] [place] [phone] PCP - OBGYN 01/09/10 Luis Villasenor MD [address] [place] [phone] PCP - General 01/09/10 documented as of this encounter
--- OUTSIDE RECORDS SUMMARY | 2024-12-28 12:41 | XMS_ITS | Encounter Summary ---
Author Organization [place] [address] Care Team Providers Care Rn Complex Care Name Role Phone Luis Villasenor MD Unavailable [phone] Luis Villasenor MD Primary Care Provider [phone] Encounter Details Date Type Department Care Team (Latest Contact Info) Description 10/28/2024 Results Follow-Up SEP Sarah [address] [place] [phone] Amarilis Nolan, DIGITAL COMPUTER SYSTEMS ANALYST [address] [place] [address] COMPREHENSIVE METABOLIC PANEL, URINE CULTURE (NO [...] documented as of this encounter Care Teams Rn Complex Care Relationship Specialty Start Date End Date Luis Villasenor MD [address] [place] [phone] PCP - OBGYN 01/09/10 Luis Villasenor MD [address] [place] [phone] PCP - General 01/09/10 documented as of this encounter
--- OUTSIDE RECORDS SUMMARY | 2024-12-28 12:41 | XMS_ITS | Encounter Summary ---
Author Organization [place] [address] Care Team Providers Care Ice Cream Shop Associate Name Role Phone Luis Villasenor MD Unavailable [phone] Luis Villasenor MD Primary Care Provider [phone] Reason for Visit * Reason Onset Date Comments Relaying Information 10/26/2024 Reporting n ew issues with pain. Encounter Details Date Type Department Care Team (Late st Contact Info) Description 10/26/[address] [facility] [address] Luis Villasenor MD [address] [facility] [place] [phone] Relaying Information (Reporting new issues with [...] documented as of this encounter Care Teams Ice Cream Shop Associate Relationship Specialty Start Date End Date Luis Villasenor MD [address] [facility] [place] [phone] PCP - OBGYN 01/09/10 Luis Villasenor MD [address] [facility] [place] [phone] PCP - General 01/09/10 documented as of this encounter
--- OUTSIDE RECORDS SUMMARY | 2024-12-28 12:41 | XMS_ITS | Encounter Summary ---
Author Organization [place] [address] Care Team Providers Care Technical Manager Chemical Plant Name Role Phone Luis Villasenor MD Unavailable [phone] Luis Villasenor MD Primary Care Provider Reason for Visit * Reason Onset Date Comments 911/Red Flag 09/19/2024 possible blood c lot Encounter Details Date Type Department Care Team (Late st Contact Info) Description 09/19/2024 Nurse Triage SEP Sarah [facility] [address] Luis Villasenor MD [address] [facility] [place] [address] Peripheral edema (Primary Dx) Social History [...] 025 9:13 AM EDT) No Nyla, Grace, CHEMICAL ENGRAVER Maintain a healthy diet, exercise regularly and [...] documented as of this encounter Care Teams Technical Manager Chemical Plant Relationship Specialty Start Date End Date Luis Villasenor MD [address] [facility] [place] [address] PCP - OBGYN 01/09/10 Luis Villasenor MD [address] [facility] [place] [phone] PCP - General 01/09/10 documented as of this encounter
== END 2024-12-28 00:05 | disposition expired | DRG 951 ==
LOC: ER 18:01 → 2ND 19:28
PROVIDERS: Admitting Provider Internal Medicine Adolescent Medicine; Emergency Provider Student in an Organized Health Care Education/Training Program; Visit Provider Internal Medicine Adolescent Medicine
DX: Z51.5 Encounter for palliative care (principal); A41.9 Sepsis, unspecified organism; J18.9 Pneumonia, unspecified organism; J96.01 Acute respiratory failure with hypoxia; R65.20 Severe sepsis without septic shock; E87.20 Acidosis, unspecified; N17.9 Acute kidney failure, unspecified; C18.9 Malignant neoplasm of colon, unspecified; C78.7 Secondary malignant neoplasm of liver and intrahepatic bile duct; E87.1 Hypo-osmolality and hyponatremia; G93.40 Encephalopathy, unspecified; Z66 Do not resuscitate; I48.91 Unspecified atrial fibrillation; R79.89 Other specified abnormal findings of blood chemistry; Z86.718 Personal history of other venous thrombosis and embolism; Z86.711 Personal history of pulmonary embolism; Z79.01 Long term (current) use of anticoagulants; Z79.899 Other long term (current) drug therapy; Z79.2 Long term (current) use of antibiotics
CPT/HCPCS: 71045; 80053; 82803; 83690; 84145; 84484; 85025; G0378